=== PATIENT | female | born 1970 | race Caucasian/White ===

== ENCOUNTER 2023-01-11 09:38 | Outpatient (OUT) | payer OTHER, SELFPAY ==
--- NOTE | 2023-01-11 09:50 | US_ITS ---
[address] [address] Patient Name: KALYN RUTHERFORD MRN: [id number] date: 1970 Sex: F Assigned Patient Location: [place] Current Patient Location: [place] Accession/Order Number: [id number] Exam Date: 01/11/2023 10:00 Report Date: 01/11/2023 10:25 At the request of: GRISELDA SCOTT Procedure: US venous doppler LE RT EXAM: US venous doppler LE RT HISTORY: Right calf pain, Edema COMPARISON: None. TECHNIQUE: Grayscale, color and Doppler FINDINGS: Region: Right leg Thrombus: None Flow: Normal Augmentation: Normal Compressibility: Normal Other: Mild subcutaneous edema of the catheter IMPRESSION: No deep or superficial vein thrombus in the right leg Electronically authenticated by: TAMIKO NETTLES Date: 01/11/2023 10:25
== END 2023-01-11 09:39 ==
PROVIDERS: PCP Family Medicine; Visit Provider Family Medicine
DX: M79.661 Pain in right lower leg (principal); R60.9 Edema, unspecified
CPT/HCPCS: 93971

== ENCOUNTER 2023-02-08 16:00 | Outpatient (OUT) | payer OTHER, SELFPAY ==
[2023-02-08 16:21] LABS: Basophils Percent Auto 0.8 % (0.2-2.0); Eosinophils Absolute Auto 0.3 10^3/uL (0.0-0.7); Eosinophils Percent Auto 6.1 % (0.9-7.0); Immature Granulocytes Abs Auto 0.01 10^3/uL (0.00-0.03); Immature Granulocytes Pct Auto 0.2 % (0.0-0.5); Lymphocytes Absolute Auto 1.9 10^3/uL (1.2-3.8); Mean Corpuscular Hemoglobin 19.5 pg (26.7-34.0); Mean Corpuscular Volume 72.4 fL (81.0-99.0); Mean Platelet Volume 9.7 fL (9.5-13.5); Monocytes Absolute Auto 0.3 10^3/uL (0.3-0.8); Monocytes Percent Auto 5.4 % (1.7-12.0); Neutrophils Absolute Auto 2.6 10^3/uL (1.4-6.5); Neutrophils Percent Auto 50.5 % (43.0-75.0); Platelet Count 289 10^3/uL (150-450); Red Blood Count 2.61 10^6/uL (4.20-5.40); Red Cell Distribution Width 18.5 % (11.0-15.0); White Blood Count 5.2 10^3/uL (4.0-11.0)
[2023-02-08 16:26] LABS: Hematocrit 18.9 % (36.0-48.0); Hemoglobin 5.1 g/dL (12.0-16.0)
[2023-02-08 17:03] LABS: Alanine Aminotransferase 13 U/L (14-59); Albumin Globulin Ratio 0.9; Albumin Level 2.9 g/dL (3.4-5.0); Alkaline Phosphatase 123 U/L (46-116); Anion Gap 14.1; Aspartate Amino Transferase 13 U/L (15-37); BUN Creatinine Ratio 18.3; Bilirubin Total 0.2 mg/dL (0.2-1.0); Calcium 8.2 mg/dL (8.5-10.1); Carbon Dioxide 25.4 mmol/L (21.0-32.0); Chloride 108 mmol/L (98-107); Chol HDL Ratio 2.4; Cholesterol 88 mg/dL (<=200); Estimated GFR (African America >60 (>=60); Estimated GFR (Non-African Ame >60 (>=60); Globulin 3.3 g/dL; Glucose 86 mg/dL (74-106); HDL Cholesterol 37 mg/dL (40-60); Potassium 4.5 mmol/L (3.5-5.1); Sodium 143 mmol/L (136-145); Thyroid Stimulating Hormone 5.021 uIU/mL (0.358-3.740); Total Protein 6.2 g/dL (6.4-8.2); Triglycerides 68 mg/dL (<=150); VLDL CHOLESTEROL 13.6 mg/dL
[2023-02-08 17:43] LABS: Free T4 0.77 ng/dL (0.76-1.46)
== END 2023-02-08 16:01 | disposition home or self-care (01) ==
LOC: LAB 16:02
PROVIDERS: PCP Family Medicine
DX: R06.09 Other forms of dyspnea (principal); R00.2 Palpitations
CPT/HCPCS: 36415; 80053; 80061; 83735; 83880; 84439; 84443; 85025

== ENCOUNTER 2023-02-08 17:07 | Observation (INO) | payer OTHER, SELFPAY ==
[2023-02-08] VITALS (26 sets, daily range): BP systolic 97–130; BP diastolic 40–61; PULSE 58–105; RESP 15–26; TEMP 36.6–36.9; O2SAT 67–100; BMI 36.1; BMI 36.6
--- NOTE | 2023-02-08 17:45 | ECG_ITS ---
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
--- NOTE | 2023-02-08 17:50 | ED.GENADUL1 ---
HPI - General Adult General Chief complaint: Recheck/Abnormal Lab/Rx Stated complaint: ADNORMAL LABS Time Seen by Provider: 02/08/23 17:45 Source: patient Mode of arrival: walk-in Limitations: no limitations History of Present Illness HPI narrative: Patient is a 52-year-old female who is presenting to the Emergency Room with 2-4 weeks. Patient's PCP is Dr. ibarra. Patient saw the nurse practitioner in the cardiology office today and had outpatient lab work done that showed a hemoglobin of 5.1. Patient was sent to the Emergency Room for evaluation. Patient also has had 3-5 months of headaches that she's been taking Excedrin for. Patient takes Excedrin daily to help with her headaches, she will adamantly take Motrin. Patient also has a history of acid reflux that she takes medication for. Patient has no melena, known medication, no hemorrhoids that she is aware of. Patient has not had her menses for months. Patient has no history of anemia. No female history of anemia in the family. Patient takes medication for depression, otherwise no other prescribed medication. Patient states she has long history of headaches, she's never had any imaging done of her brain previously for headaches, At the headaches and the getting worse the last 3-5 months. and child at bedside. . All systems are negative except as noted/marked. All systems reviewed and otherwise negative. . Nurses note and vital signs reviewed and patient is not hypoxic. General: The patient appears well and in no apparent distress. Patient is resting comfortably on cart. Patient is not toxic, lethargic, or listless Skin: Warm, dry, + pallor noted. There is no rash noted. No petechiae, purpura. Head: Normocephalic, atraumatic Eye: Palel conjunctiva, no drainage, EOMI. PERRL Ears, Nose, Mouth, and Throat: oral mucosa is moist. Nares patent. Mouth without vesicles. Cardiovascular: Regular Rate and Rhythm, no murmur, gallop, rub Respiratory: Patient is in no distress, no accessory muscle use, lungs are clear to auscultation, no wheezing, rales or rhonchi Back: non-tender, no CVA tenderness bilaterally to percussion. No CT LS midline pain GI: soft, obese, no tenderness to palpation, no masses appreciated. No rebound, guarding, or rigidity noted. No flank pain bilateral, No distention Rectal exam: chaperoned by Rosana LIZARRAGA, no external or internal hemorrhoids, brown stool. Hemoccult pending. Musculoskeletal: Patient has full range of motion of all of the extremities, no motor, sensory, or focal neurological deficits Neurological: A&O x3, normal speech Psychiatric: Cooperative Related Data Home Medications Medication Instructions Recorded Confirmed aripiprazole 10 mg tablet 10 mg PO DAILY 02/08/23 02/08/23 cholecalciferol (vitamin D3) 25 1,000 unit PO DAILY 02/08/23 02/08/23 mcg (1,000 unit) tablet citalopram 40 mg tablet 40 mg PO DAILY 02/08/23 02/08/23 furosemide 20 mg tablet 20 mg PO DAILY 02/08/23 02/08/23 lansoprazole 30 mg capsule,delayed 30 mg PO DAILY 02/08/23 02/08/23 release lorazepam 0.5 mg tablet 0.5 mg PO Q12H PRN anxiety 02/08/23 02/08/23 tolterodine 4 mg capsule,extended 4 mg PO Q24H 02/08/23 02/08/23 release 24 hr trazodone 50 mg tablet 50 mg PO DAILY PRN insomnia 02/08/23 02/08/23 Allergies Allergy/AdvReac Type Severity Reaction Status Date / Time Penicillins Allergy Severe Hives Verified 02/08/23 17:14 PFSH PFSH Social History Smoking status: Current every day smoker Exam Constitutional Vital Signs, click to edit/add: Last Vital Signs Pulse 77 02/08/23 17:15 Resp 18 02/08/23 17:15 BP 125/54 H 02/08/23 17:15 Pulse Ox 99 02/08/23 17:15 O2 Del Method Room Air 02/08/23 17:15 Course Vital Signs Vital signs: Vital Signs Pulse Rate 77 02/08/23 17:15 Respiratory Rate 18 02/08/23 17:15 Blood Pressure 125/54 H 02/08/23 17:15 Pulse Oximetry 99 02/08/23 17:15 Oxygen Delivery Method Room Air 02/08/23 17:15 Pulse Rate 77 02/08/23 17:15 Respiratory Rate 18 02/08/23 17:15 Blood Pressure 125/54 H 02/08/23 17:15 Pulse Oximetry 99 02/08/23 17:15 Oxygen Delivery Method Room Air 02/08/23 17:15 Medical Decision Making MDM Narrative Medical decision making narrative: EKG interpretation. Normal sinus rhythm at 74 beats a minute. Normal axis deviation. No acute ST elevation, no acute ectopy. QTC of 403. Blood consent was signed, risk and benefits of transfusing blood was discussed at bedside. Patient has been hemodynamically stable. Patient will be admitted for observation for at least 2 units of blood transfusion. Patient has never had a EGD or colonoscopy. Patient has never had anemia previously. Patient only takes medication for depression. Patient will be admitted for further testing. Patient will also the CT of the brain to rule out any other acute patthology. Patient will have a CT of the brain as she is being transferred upstairs for inpatient observation stay, admitting hospitalist Dr. Yao will follow-up on any other additional lab work including iron studies are ordered and CT of the brain. Lab Data Lab results reviewed: Yes I reviewed the patient's lab results Labs: Lab Results 02/08/23 02/08/23 Range/Units 17:36 18:01 WBC 4.5 (4.0-11.0) 10^3/uL RBC 2.53 L (4.20-5.40) 10^6/uL Hgb 4.8 L* (12.0-16.0) g/dL Hct 18.2 L* (36.0-48.0) % MCV 71.9 L (81.0-99.0) fL MCH 19.0 L (26.7-34.0) pg MCHC 26.4 L (29.9-35.2) g/dL RDW 18.5 H (11.0-15.0) % Plt Count 288 (150-450) 10^3/uL MPV 10.4 (9.5-13.5) fL Neut % (Auto) 48.6 (43.0-75.0) % Lymph % (Auto) 39.1 (20.5-60.0) % [place] % (Auto) 5.4 (1.7-12.0) % Eos % (Auto) 5.8 (0.9-7.0) % Baso % (Auto) 0.9 (0.2-2.0) % Neut # (Auto) 2.2 (1.4-6.5) 10^3/uL Lymph # (Auto) 1.7 (1.2-3.8) 10^3/uL [place] # (Auto) 0.2 L (0.3-0.8) 10^3/uL Eos # (Auto) 0.3 (0.0-0.7) 10^3/uL Baso # (Auto) 0.0 (0.0-0.1) 10^3/uL Abs Immat Gran (auto) 0.01 (0.00-0.03) 10^3/uL Imm/Tot Granulo (auto) 0.2 (0.0-0.5) % Sodium 139 (136-145) mmol/L Potassium 4.2 (3.5-5.1) mmol/L Chloride 108 H (98-107) mmol/L Carbon Dioxide 24.2 (21.0-32.0) mmol/L Anion Gap 11.0 BUN 16.0 (7.0-18.0) mg/dL Creatinine 0.91 (0.55-1.02) mg/dL Est GFR ( Amer) >60 (>=60) Est GFR (Non-Af Amer) >60 (>=60) BUN/Creatinine Ratio 17.6 Glucose 92 (74-106) mg/dL Lactate 1.7 (0.4-2.0) mmol/L Calcium 8.2 L (8.5-10.1) mg/dL Iron 12.0 L (50.0-170.0) ug/dL TIBC 466.0 H (250.0-450.0) ug/dL % Saturation 2.6 % Ferritin 3.0 L (8.0-252.0) ng/mL Total Bilirubin 0.3 (0.2-1.0) mg/dL AST 15 (15-37) U/L ALT <6 L (14-59) U/L Alkaline Phosphatase 118 H (46-116) U/L Total Creatine Kinase 62 (26-192) U/L CK-MB (CK-2) <0.50 (<=3.60) ng/mL Myoglobin 30 (9-82) ng/mL Troponin I High Sens 6.7 (4.0-51.3) pg/mL NT-Pro-B Natriuret Pep 253.0 (<=900.0) pg/mL Total Protein 6.0 L (6.4-8.2) g/dL Albumin 3.0 L (3.4-5.0) g/dL Globulin 3.0 g/dL Albumin/Globulin Ratio 1.0 Blood Type AB Positive Antibody Screen Negative Crossmatch See Detail ECG Data Attestation: I personally reviewed and interpreted this ECG as follows: Discharge Plan Discharge Chief Complaint: Recheck/Abnormal Lab/Rx Clinical Impression: Anemia requiring transfusions, Fatigue, Chronic headache Patient Disposition: Admitted as Observation Condition: Fair
[2023-02-08 18:11] LABS: Basophils Percent Auto 0.9 % (0.2-2.0); Eosinophils Absolute Auto 0.3 10^3/uL (0.0-0.7); Eosinophils Percent Auto 5.8 % (0.9-7.0); Immature Granulocytes Abs Auto 0.01 10^3/uL (0.00-0.03); Immature Granulocytes Pct Auto 0.2 % (0.0-0.5); Lymphocytes Absolute Auto 1.7 10^3/uL (1.2-3.8); Lymphocytes Percent Auto 39.1 % (20.5-60.0); Mean Corpuscular HGB Conc 26.4 g/dL (29.9-35.2); Mean Corpuscular Volume 71.9 fL (81.0-99.0); Mean Platelet Volume 10.4 fL (9.5-13.5); Monocytes Absolute Auto 0.2 10^3/uL (0.3-0.8); Monocytes Percent Auto 5.4 % (1.7-12.0); Neutrophils Absolute Auto 2.2 10^3/uL (1.4-6.5); Neutrophils Percent Auto 48.6 % (43.0-75.0); Platelet Count 288 10^3/uL (150-450); Red Blood Count 2.53 10^6/uL (4.20-5.40); Red Cell Distribution Width 18.5 % (11.0-15.0); White Blood Count 4.5 10^3/uL (4.0-11.0)
[2023-02-08 18:18] LABS: Hematocrit 18.2 % (36.0-48.0); Hemoglobin 4.8 g/dL (12.0-16.0)
[2023-02-08 18:44] LABS: Lactate/Lactic Acid 1.7 mmol/L (0.4-2.0)
[2023-02-08 18:51] LABS: Alanine Aminotransferase <6 U/L (14-59); Alkaline Phosphatase 118 U/L (46-116); Aspartate Amino Transferase 15 U/L (15-37); BUN Creatinine Ratio 17.6; Bilirubin Total 0.3 mg/dL (0.2-1.0); Calcium 8.2 mg/dL (8.5-10.1); Carbon Dioxide 24.2 mmol/L (21.0-32.0); Chloride 108 mmol/L (98-107); Creatine Kinase 62 U/L (26-192); Creatine Kinase MB <0.50 ng/mL (<=3.60); Estimated GFR (African America >60 (>=60); Estimated GFR (Non-African Ame >60 (>=60); Glucose 92 mg/dL (74-106); Myoglobin 30 ng/mL (9-82); Potassium 4.2 mmol/L (3.5-5.1); Sodium 139 mmol/L (136-145); Troponin I High Sensitivity 6.7 pg/mL (4.0-51.3)
--- NOTE | 2023-02-08 18:57 | CT_ITS ---
The [address] [address] Patient Name: KALYN RUTHERFORD MRN: [id number] date: 1970 Sex: F Assigned Patient Location: ICU Current Patient Location: ICU Accession/Order Number: [id number] Exam Date: 02/08/2023 19:08 Report Date: 02/08/2023 19:45 At the request of: MICHELA QUINTANA Procedure: CT head/brain wo con EXAMINATION: CT head/brain wo con, 02/08/2023 7:08 PM EDT HISTORY: Chronic headache COMPARISON: None. TECHNIQUE: CT scan of the head was performed without IV contrast. CT dose reduction technique was used, including Automated Exposure Control. FINDINGS: BRAIN PARENCHYMA/CSF SPACES: Ventricles are normal in size for age. There is no hemorrhage, mass effect or midline shift. There are no other significant findings. PARANASAL SINUSES: Clear. SKULL BASE AND CALVARIUM: Normal. EXTRACRANIAL SOFT TISSUES: Normal. CT/CT head/brain wo con IMPRESSION: No acute intracranial findings. Electronically authenticated by: JENNIFER MARIE Date: 02/08/2023 19:45
[2023-02-08 19:13] LABS: Percent Iron Saturation 2.6 %
[2023-02-08] MEDS: 0.9 % SODIUM CHLORIDE 500 ML 100 ML IV (19:57)
--- NOTE | 2023-02-08 23:15 | P.PN_ITS ---
Progress Note: Subjective Subjective Interval history: The patient is a 52-year-old female who has not been feeling well over the past several weeks. She has been having intermittent episodes of chest pain, fatigue and shortness of breath. She is also been complaining of lightheadedness and dizziness. She saw cardiology today and underwent outpatient labs. She was noted to have a hemoglobin of 5.1. The patient has reached menopause and her last menstrual period was 2 years ago. She presented to the ED and repeat hemoglobin was 4.8. She is being transfused 2 units of packed red blood cells. The patient denies any hematochezia, hematuria or any other vaginal bleeding. She is being admitted for acute anemia. Exam Narrative Exam Narrative: General : Alert and oriented x3, pale HEENT : Extraocular movements intact, pupils equal round and reactive to light and accommodation Neck: Supple, no JVD Chest: Wheezing on left side Heart: Regular rate and rhythm, S1 and S2 heard Abdomen: Soft nontender nondistended. Extremities: No clubbing cyanosis or edema Neurologically: Moving all 4 extremities Skin: No rashes Constitutional Vital Signs, click to edit/add: Last Vital Signs Temp 98.1 F 02/08/23 22:49 Pulse 67 02/08/23 22:49 Resp 19 02/08/23 22:49 BP 130/61 H 02/08/23 22:49 Pulse Ox 94 L 02/08/23 22:49 O2 Del Method Room Air 02/08/23 22:49 Progress Note: Objective Labs Labs: Short CBC 02/08/23 Range/Units 17:36 WBC 4.5 (4.0-11.0) 10^3/uL Hgb 4.8 L* (12.0-16.0) g/dL Hct 18.2 L* (36.0-48.0) % Plt Count 288 (150-450) 10^3/uL BMP 02/08/23 17:36 Sodium 139 Potassium 4.2 Chloride 108 H Carbon Dioxide 24.2 BUN 16.0 Creatinine 0.91 Glucose 92 Calcium 8.2 L Cardiac Enzymes 02/08/23 Range/Units 17:36 Total Creatine Kinase 62 (26-192) U/L CK-MB (CK-2) <0.50 (<=3.60) ng/mL Liver Function 02/08/23 Range/Units 17:36 Total Bilirubin 0.3 (0.2-1.0) mg/dL AST 15 (15-37) U/L ALT <6 L (14-59) U/L Alkaline Phosphatase 118 H (46-116) U/L Albumin 3.0 L (3.4-5.0) g/dL Progress Note: A&P Assessment and Plan (1) Anemia requiring transfusions: (2) Fatigue: Plan The patient is a 52-year-old female with above medical problems, presenting with acute on chronic anemia. Acute on chronic anemia -Provide supportive care -Rule out GI blood loss, guaiac stools -Transfused 2 units of blood -Monitor blood counts Nicotine dependence -Provide nicotine patch DVT Prophylaxis -SCDs Medication review -Medication reconciliation form completed Goals of care -Full code Communications -Discussed with the emergency room physician -Discussed with the bedside nurse -Patient updated of plan of care, all questions answered to their satisfaction Disposition -Home when medically stable Telemedicine clause -As the provider of this telehealth evaluation, requested by the patient's evaluating physician, I attest that I introduced myself to the patient, provided my credentials and determined that telemedicine via a real-time, two-way interactive audio and video platform is an appropriate and effective means of providing this service. -I reviewed the patient's chart and had a discussion with the member of the patient's treatment team. -The patient and I mutually agreed with continuation of this evaluation via telemedicine. The patient consented for the telemedicine evaluation. -This virtual encounter was taken place from [place], [place]. The encounter was approximately 35 minutes. The nurse was present during the entire time of the encounter and was able to remove the stethoscope and appropriate directions. The patient was evaluated at [facility] Telemedicine Attestation Telemedicine Attestation I conducted this encounter from [facility] via secure live, [id number] video conference with the patient, located at [facility] with nurse. Prior to the interview, the risks and benefits of telemedicine were discussed with the patient and verbal consent was obtained.
[2023-02-08] MEDS: ACETAMINOPHEN 325 MG TABLET 650 MG PO (23:43)
[2023-02-09] VITALS (22 sets, daily range): BP systolic 98–127; BP diastolic 48–68; PULSE 55–71; RESP 16–18; TEMP 36.4–36.7; O2SAT 95–100
--- NOTE | 2023-02-09 03:26 | PC.NURSE ---
02/08/2023 2217: 1st unit of blood completed and 2nd unit started. Attempted to scan but unable. Blood verification done between Elizabeth LIZARRAGA and marine underwriter. Blood started, VS documented. 02/09/2023 0000: 2nd unit of blood completed. No reaction noted. Again unable to document blood has ended. VS documented during transfusion per protocol.
[2023-02-09] MEDS: ACETAMINOPHEN 325 MG TABLET 650 MG PO ×3 (04:14→13:11)
[2023-02-09 04:50] LABS: Eosinophils Absolute Auto 0.3 10^3/uL (0.0-0.7); Eosinophils Percent Auto 7.2 % (0.9-7.0); Immature Granulocytes Abs Auto 0.01 10^3/uL (0.00-0.03); Immature Granulocytes Pct Auto 0.3 % (0.0-0.5); Lymphocytes Absolute Auto 1.9 10^3/uL (1.2-3.8); Lymphocytes Percent Auto 48.7 % (20.5-60.0); Mean Corpuscular HGB Conc 27.8 g/dL (29.9-35.2); Mean Corpuscular Hemoglobin 21.4 pg (26.7-34.0); Mean Corpuscular Volume 76.9 fL (81.0-99.0); Mean Platelet Volume 10.3 fL (9.5-13.5); Monocytes Absolute Auto 0.3 10^3/uL (0.3-0.8); Monocytes Percent Auto 7.4 % (1.7-12.0); Neutrophils Absolute Auto 1.4 10^3/uL (1.4-6.5); Neutrophils Percent Auto 35.4 % (43.0-75.0); Platelet Count 233 10^3/uL (150-450); Red Blood Count 2.95 10^6/uL (4.20-5.40); Red Cell Distribution Width 18.1 % (11.0-15.0); White Blood Count 3.9 10^3/uL (4.0-11.0)
[2023-02-09 04:55] LABS: Hemoglobin 6.3 g/dL (12.0-16.0)
[2023-02-09 04:56] LABS: Hematocrit 22.7 % (36.0-48.0)
[2023-02-09 05:07] LABS: BUN Creatinine Ratio 15.2; Calcium 8.2 mg/dL (8.5-10.1); Carbon Dioxide 24.4 mmol/L (21.0-32.0); Chloride 111 mmol/L (98-107); Estimated GFR (African America >60 (>=60); Estimated GFR (Non-African Ame >60 (>=60); Glucose 84 mg/dL (74-106); Potassium 4.4 mmol/L (3.5-5.1); Sodium 142 mmol/L (136-145)
[2023-02-09] MEDS: FUROSEMIDE 20 MG/2 ML VIAL IV (06:26)
[2023-02-09] MEDS: PANTOPRAZOLE SODIUM 40 MG VIAL IV (07:44)
--- NOTE | 2023-02-09 08:44 | PM.HP ---
H&P: HPI History of Present Illness Chief complaint: ADNORMAL LABS ANEMIA REQUIRES TRANSFUSION Narrative: patient is a 52-year-old female with past medical history of anxiety depression, GERD who presented to the emergency department yesterday with a several week history of chest pain shortness of breath and weakness. In the Emergency Room she was found to have a symptomatic anemia with a hemoglobin of 4.8. She denies ever having any anemia issues in the past. She has never had a screening colonoscopy. She is a daily smoker smokes about one pack per day. She denies any nausea vomiting diarrhea or abdominal pain. She has been having headaches and has been taking a lot of Excedrin migraine and she also reports two daily NSAIDs or this headache. She takes an occasional Lasix for lower extremity swelling and has noticed some right lower extremity swelling more than usual so a ultrasound of the right lower extremity was obtained in the Emergency Room which was negative for deep vein thromboses. Patient is not taking any blood thinners although we discussed the Excedrin has aspirin. She denies any prior heart history her only surgical history was a rectocele repair. Patient is postmenopausal and has not had a menstruation for greater than two years. She denies any other form of bleeding. Patient has received two units of PRBCs so far. Also personal history of GERD, never had EGD, takes pepcid OTC. Review of Systems ROS Narrative ROS: a complete review of systems were reviewed with patient and are positive as below or listed in History of Chief Complaint. General: no fever, chills, night sweats Head: no headache, trauma, visual changes, nausea or vomiting Skin: no reported rashes, itching or sores Eyes: no blurriness of vision Ears: no reported hearing loss, vertigo, earache, or tinnitus Throat: no sore throat, hoarseness, swelling of neck, or tongue pain Heart: chest pain Lungs: shortness of breath, no cough GI: no diarrhea or vomiting/nausea Urinary: no urinary urgency, frequency or pain Neuro: no numbness or tingling HEM: no bleeding issues or bruising ENDO: no thyroid problems Psych: anxiety and depression [facility] Medical History (Updated 02/09/23 @ 11:28 by Anh Ugalde DO) Surgical History Social History Smoking status: Current every day smoker Meds Home Medications and Allergies Home Medications Medication Instructions Recorded Confirmed Type aripiprazole 10 mg tablet 10 mg PO DAILY 02/08/23 02/08/23 History cholecalciferol (vitamin D3) 25 1,000 unit PO DAILY 02/08/23 02/08/23 History mcg (1,000 unit) tablet citalopram 40 mg tablet 40 mg PO DAILY 02/08/23 02/08/23 History furosemide 20 mg tablet 20 mg PO DAILY 02/08/23 02/08/23 History lansoprazole 30 mg capsule,delayed 30 mg PO DAILY 02/08/23 02/08/23 History release lorazepam 0.5 mg tablet 0.5 mg PO Q12H PRN anxiety 02/08/23 02/08/23 History tolterodine 4 mg capsule,extended 4 mg PO Q24H 02/08/23 02/08/23 History release 24 hr trazodone 50 mg tablet 50 mg PO DAILY PRN insomnia 02/08/23 02/08/23 History Allergies Allergy/AdvReac Type Severity Reaction Status Date / Time Penicillins Allergy Severe Hives Verified 02/08/23 17:14 Exam Narrative Exam Narrative: General: Patient is alert, and oriented to person, place and time with normal affect, proper hygiene Skin: no visible rashes, or ulcers Head: atraumatic, acephalic Eyes: PERRLA, no nystagmus present, conjunctiva clear, no scleral icterus Ears: normal Tympanic Membrane, normal gross auditory acuity Nose: symmetric, no discharge, no maxillary or frontal sinus tenderness Mouth/Throat: no erythema, exudate, or tonsillar enlargement, normal dentition Neck: no masses palpated, normal thyroid, no JVD or audible carotid bruits Heart: Normal rate and rhythm, no murmurs/rubs/gallops Lungs: no audible wheezes, crackles and normal breath sounds all lung warner Abdomen: Normal audible bowel sounds, no distension, No palpable masses, no organomegaly, no rebound/guarding/ or rigidity Musculoskeletal: muscle atrophy noted, ROM is limited due to being in hospital bed, no swelling bilateral lower extremities Vascular: Normal carotid, radial, femoral, posterior tibial, and dorsalis pedis pulses Lymph: no supraclavicular, axillary, or anterior/posterior cervical adenopathy Neuro: CN II-X grossly intact, normal sensation upper and lower extremities Constitutional Vital Signs, click to edit/add: Last Vital Signs Temp 97.9 F 02/09/23 04:00 Pulse 69 02/09/23 05:56 Resp 18 02/09/23 04:00 BP 118/60 02/09/23 06:26 Pulse Ox 95 02/09/23 05:11 O2 Del Method Room Air 02/09/23 05:11 Results Labs Labs: Short CBC 02/08/23 02/08/23 Range/Units 03:50 17:36 WBC 3.9 L 4.5 (4.0-11.0) 10^3/uL Hgb 6.3 L* 4.8 L* (12.0-16.0) g/dL Hct 22.7 L* 18.2 L* (36.0-48.0) % Plt Count 233 288 (150-450) 10^3/uL BMP 02/08/23 02/08/23 03:50 17:36 Sodium 142 139 Potassium 4.4 4.2 Chloride 111 H 108 H Carbon Dioxide 24.4 24.2 BUN 12.0 16.0 Creatinine 0.79 0.91 Glucose 84 92 Calcium 8.2 L 8.2 L Cardiac Enzymes 02/08/23 Range/Units 17:36 Total Creatine Kinase 62 (26-192) U/L CK-MB (CK-2) <0.50 (<=3.60) ng/mL Liver Function 02/08/23 Range/Units 17:36 Total Bilirubin 0.3 (0.2-1.0) mg/dL AST 15 (15-37) U/L ALT <6 L (14-59) U/L Alkaline Phosphatase 118 H (46-116) U/L Albumin 3.0 L (3.4-5.0) g/dL Assessment and Plan Assessment and Plan (1) UGIB (upper gastrointestinal bleed): Assessment and Plan: patient should receive approximately four units of PRBCs, only increased from 4-6 for hemoglobin. Supposed to receive the other two units this morning. Patient is nothing by mouth for surgical consultation and probable EGD. Patient has a history of GERD and gastric bypass surgery and given she has been taking aspirin and NSAIDs for headache most likely culprit is ulcer. IV Protonix 40 mg twice a day and will add Carafate after EGD. (2) Symptomatic anemia: Assessment and Plan: iron is low but most likely due to blood loss, possible bleeding ulcer versus gastritis patient denies any other forms of bleeding. (3) Gastro-esophageal reflux: Assessment and Plan: continue Protonix (4) Fatigue: Assessment and Plan: secondary to iron deficiency/blood loss anemia (5) Chronic headache: Assessment and Plan: Tylenol as needed and avoid NSAIDs and aspirin (6) Anxiety with depression: Assessment and Plan: continue Celexa and Abilify and trazodone at night (7) Hx of gastric bypass: Plan patient is a full code Due to active bleeding, and significant anemia SCDs only for deep vein thrombosis prophylaxis Patient is in observation status and is not expected to stay more than two midnights
[2023-02-09] MEDS: CITALOPRAM HYDROBROMIDE 20 MG TABLET 40 MG PO (09:08)
[2023-02-09] MEDS: ARIPIPRAZOLE 5 MG TABLET 10 MG PO (09:08)
[2023-02-09] MEDS: SOLIFENACIN SUCCINATE 10 MG TABLET PO (09:08)
[2023-02-09] MEDS: NICOTINE 14 MG PATCH.TD24 TD (09:09)
[2023-02-09] MEDS: CHOLECALCIFEROL (VITAMIN D3) 25 MCG/1,000 UNITS TABLET 75 MCG PO (09:40)
[2023-02-09] MEDS: 0.9 % SODIUM CHLORIDE 250 ML 40 ML IV (10:14)
--- NOTE | 2023-02-09 11:37 | CM.NOTE ---
Rounds made with Dr. Ugalde. Awaiting General Surgery plan.
[2023-02-09] MEDS: 0.9 % SODIUM CHLORIDE 1,000 ML 999 ML (14:12)
[2023-02-09] MEDS: 0.9 % SODIUM CHLORIDE 1,000 ML 1000 ML IV (14:15)
--- NOTE | 2023-02-09 14:16 | PM.GSCN ---
History of Present Illness Consult details Consult date: 02/09/23 Reason for consult: other (anemia) Requesting physician: Anh Ugalde Narrative: Talia Mercado is a 51-year-old female who presented to the Emergency Department after being referred by her director marketing communications from [facility] at [facility] due to fatigue shortness of breath difficulty ambulating because of the above. He wanted blood work performed and she was found have a hemoglobin around 4 g. She denies any melena hematochezia abdominal pain nausea vomiting hematemesis or weight loss or any family history of colon cancer. She has never had a colonoscopy. She does admit to reflux disease for which she takes Prevacid daily. She also admits to taking eight extra strength Excedrin daily plus Tylenol plus ibuprofen when necessary for headaches. She consumes 5 cups of caffeine daily. She smokes tobacco daily. She denies any alcohol use. She takes Pepto-Bismol occasionally. She works in [employer] at [employer] from [employer] in [place]. She is . She is now receiving her 4th unit of packed red blood cells. Review of Systems ROS Status of ROS 10 or more systems reviewed and unremarkable except as noted in history and below [facility] Medical History Surgical History Social History Smoking status: Current every day smoker Meds Home Medications and Allergies Home Medications Medication Instructions Recorded Confirmed Type aripiprazole 10 mg tablet 10 mg PO DAILY 02/08/23 02/08/23 History cholecalciferol (vitamin D3) 25 1,000 unit PO DAILY 02/08/23 02/08/23 History mcg (1,000 unit) tablet citalopram 40 mg tablet 40 mg PO DAILY 02/08/23 02/08/23 History furosemide 20 mg tablet 20 mg PO DAILY 02/08/23 02/08/23 History lansoprazole 30 mg capsule,delayed 30 mg PO DAILY 02/08/23 02/08/23 History release lorazepam 0.5 mg tablet 0.5 mg PO Q12H PRN anxiety 02/08/23 02/08/23 History tolterodine 4 mg capsule,extended 4 mg PO Q24H 02/08/23 02/08/23 History release 24 hr trazodone 50 mg tablet 50 mg PO DAILY PRN insomnia 02/08/23 02/08/23 History Allergies Allergy/AdvReac Type Severity Reaction Status Date / Time Penicillins Allergy Severe Hives Verified 02/08/23 17:14 Exam Constitutional Vital Signs, click to edit/add: Last Vital Signs Temp 97.8 F 02/09/23 13:32 Pulse 63 02/09/23 14:09 Resp 16 02/09/23 13:32 BP 120/60 H 02/09/23 13:41 Pulse Ox 96 02/09/23 13:32 O2 Del Method Room Air 02/09/23 13:32 Documenting provider has reviewed patient's vital signs: yes Common normals: no apparent distress, oriented x3 and healthy appearing General appearance: cooperative, comfortable and well developed Nutritional appearance: obese Orientation/consciousness: Yes awake, Yes oriented to person, Yes oriented to place and Yes oriented to time Respiratory Common normals: normal respiratory effort Auscultation: clear to auscultation bilaterally Cardio Common normals: regular rate GI Common normals: Normal to inspection, nondistended, normoactive bowel sounds present, soft to palpation, non-tender and no masses Inspection: central obesity Neuro Common normals: oriented x3, CN's II-XII intact bilaterally and moves all extremities Results Labs Labs: Abnormal lab results 02/08/23 02/08/23 02/08/23 Range/Units 03:50 17:36 18:01 WBC 3.9 L (4.0-11.0) 10^3/uL RBC 2.95 L 2.53 L (4.20-5.40) 10^6/uL Hgb 6.3 L* 4.8 L* (12.0-16.0) g/dL Hct 22.7 L* 18.2 L* (36.0-48.0) % MCV 76.9 L 71.9 L (81.0-99.0) fL MCH 21.4 L 19.0 L (26.7-34.0) pg MCHC 27.8 L 26.4 L (29.9-35.2) g/dL RDW 18.1 H 18.5 H (11.0-15.0) % Neut % (Auto) 35.4 L (43.0-75.0) % Eos % (Auto) 7.2 H (0.9-7.0) % [place] # (Auto) 0.2 L (0.3-0.8) 10^3/uL Chloride 111 H 108 H (98-107) mmol/L Calcium 8.2 L 8.2 L (8.5-10.1) mg/dL Iron 12.0 L (50.0-170.0) ug/dL TIBC 466.0 H (250.0-450.0) ug/dL Ferritin 3.0 L (8.0-252.0) ng/mL ALT <6 L (14-59) U/L Alkaline Phosphatase 118 H (46-116) U/L Total Protein 6.0 L (6.4-8.2) g/dL Albumin 3.0 L (3.4-5.0) g/dL Crossmatch See Detail Diabetes panel 02/08/23 02/08/23 Range/Units 03:50 17:36 Sodium 142 139 (136-145) mmol/L Potassium 4.4 4.2 (3.5-5.1) mmol/L Chloride 111 H 108 H (98-107) mmol/L Carbon Dioxide 24.4 24.2 (21.0-32.0) mmol/L BUN 12.0 16.0 (7.0-18.0) mg/dL Creatinine 0.79 0.91 (0.55-1.02) mg/dL Glucose 84 92 (74-106) mg/dL Calcium 8.2 L 8.2 L (8.5-10.1) mg/dL AST 15 (15-37) U/L ALT <6 L (14-59) U/L Alkaline Phosphatase 118 H (46-116) U/L Total Protein 6.0 L (6.4-8.2) g/dL Albumin 3.0 L (3.4-5.0) g/dL Calcium panel 02/08/23 02/08/23 Range/Units 03:50 17:36 Calcium 8.2 L 8.2 L (8.5-10.1) mg/dL Albumin 3.0 L (3.4-5.0) g/dL Pituitary panel 02/08/23 02/08/23 Range/Units 03:50 17:36 Sodium 142 139 (136-145) mmol/L Potassium 4.4 4.2 (3.5-5.1) mmol/L Chloride 111 H 108 H (98-107) mmol/L Carbon Dioxide 24.4 24.2 (21.0-32.0) mmol/L BUN 12.0 16.0 (7.0-18.0) mg/dL Creatinine 0.79 0.91 (0.55-1.02) mg/dL Glucose 84 92 (74-106) mg/dL Calcium 8.2 L 8.2 L (8.5-10.1) mg/dL Adrenal panel 02/08/23 02/08/23 Range/Units 03:50 17:36 Sodium 142 139 (136-145) mmol/L Potassium 4.4 4.2 (3.5-5.1) mmol/L Chloride 111 H 108 H (98-107) mmol/L Carbon Dioxide 24.4 24.2 (21.0-32.0) mmol/L BUN 12.0 16.0 (7.0-18.0) mg/dL Creatinine 0.79 0.91 (0.55-1.02) mg/dL Glucose 84 92 (74-106) mg/dL Calcium 8.2 L 8.2 L (8.5-10.1) mg/dL Total Bilirubin 0.3 (0.2-1.0) mg/dL AST 15 (15-37) U/L ALT <6 L (14-59) U/L Alkaline Phosphatase 118 H (46-116) U/L Total Protein 6.0 L (6.4-8.2) g/dL Albumin 3.0 L (3.4-5.0) g/dL All other labs normal. Assessment and Plan Assessment and Plan (1) UGIB (upper gastrointestinal bleed): Assessment and Plan: patient should receive approximately four units of PRBCs, only increased from 4-6 for hemoglobin. Supposed to receive the other two units this morning. Patient is nothing by mouth for surgical consultation and probable EGD. Patient has a history of GERD and gastric bypass surgery and given she has been taking aspirin and NSAIDs for headache most likely culprit is ulcer. IV Protonix 40 mg twice a day and will add Carafate after EGD. (2) Symptomatic anemia: Assessment and Plan: iron is low but most likely due to blood loss, possible bleeding ulcer versus gastritis patient denies any other forms of bleeding. (3) Gastro-esophageal reflux: Assessment and Plan: continue Protonix (4) Fatigue: Assessment and Plan: secondary to iron deficiency/blood loss anemia (5) Chronic headache: Assessment and Plan: Tylenol as needed and avoid NSAIDs and aspirin (6) Anxiety with depression: Assessment and Plan: continue Celexa and Abilify and trazodone at night (7) Hx of gastric bypass: Assessment and Plan: Gastric bypass was done by Dr. Chang in [place], [place], in two thousand twenty with a Juanito-en-Y bypass.patient claims she was never told to avoid nonsteroidal anti-inflammatory drugs and is at high risk for marginal ulceration. She was today warned by me to avoid nonsteroidal anti-inflammatory drugs and take Tylenol only for migraines the migraines are not better with Tylenol only she should probably see a neurologist asked her PCP for other medications to treat migraines other than nonsteroidal anti-inflammatory drugs. She is also highly encouraged to quit smoking tobacco. Nicotine is a stimulant because increased acid production and she is also asked to cut down her caffeine use to one to 2 cups a day instead of 5 cups. She voiced understanding of the above. (8) Tobacco abuse: Plan patient is a full code Due to active bleeding, and significant anemia SCDs only for deep vein thrombosis prophylaxis Patient is in observation status and is not expected to stay more than two midnights EGD with possible biopsy. Risks benefits and alternatives to procedure may include bleeding or perforation. She's had gastric bypass so she is increased risk of marginal ulceration.
--- NOTE | 2023-02-09 14:26 | PC.NURSE ---
Departed to OR with blood transfusing, 200ml/HR. Nurse Pat is aware of infusion. NS started by gravity tubing to new IV site to left wrist.
--- NOTE | 2023-02-09 14:44 | P.GSPRC_ITS ---
Date of procedure: 02/09/23 Indications for Procedure: anemia Pre-op diagnosis: anemia Post-op diagnosis: same (normal stomach esophagus and efferent and afferent limbs of gastric bypass) Procedure: esophagogastroduodenoscopy Findings: normal; no bleeding seen no ulcers polyps or tumors seen Anesthesia: MAC Surgeon: Segun Keene Procedure Summary: 52-year-old female was taken to the endoscopy suite placed in left lateral, position given IV sedation and monitored anesthesia care by the [facility] sthesiologist. Timeout was taken. The Olympus EGD scope was advanced under direct visualization to the posterior pharynx esophagus stomach which was small from the gastric bypass into the efferent and afferent limbs of the bypass with no blood or stigmata of bleeding noted. No ulcers polyps or tumors were seen. Mucosa appeared grossly normal. The scope was returned to the esophagus which was completely normal as well. The scope was withdrawn from the mouth.she went to PACU in stable condition. I would recommend colonoscopy tomorrow after giving her prep today. Rectal digital exam was performed and sphincter tone was normal. There was no blood on examining gloved finger and there was no stool present. Estimated blood loss (mL): 0 Complications: No Pathology: none sent Condition: stable Disposition: PACU
[2023-02-09 17:03] LABS: Hematocrit 29.7 % (36.0-48.0)
--- NOTE | 2023-02-09 18:14 | PC.NURSE ---
pt chose to ricarda out AMA after follow up HGB was 9.0. Dr. Ugalde was aware and advised follow up with office. is at bedside and aware of plan. IV removed.
--- NOTE | 2023-02-10 15:29 | PM.DS1 ---
DS: Providers Provider Date of admission: 02/08/23 18:40 Primary care physician: GRISELDA SCOTT Admitting clinician: Yahaira Rosas Consults: 02/09/23 06:38 Consult to General Surgeon Routine Consulting Provider: Segun Keene Attending physician on discharge: Ahn Ugalde DS: Diagnosis Discharge Diagnosis (1) UGIB (upper gastrointestinal bleed): (2) Symptomatic anemia: (3) Gastro-esophageal reflux: (4) Fatigue: (5) Chronic headache: (6) Anxiety with depression: (7) Hx of gastric bypass: (8) Tobacco abuse: DS: Summary Hospital Course Hospital Course: EGD showed no acute pathology. patient received 4 units PRBCs, Hb came up to 9.0. She had an important court date to attending. Dr. Keene and myself thought the need for further inpatient work up and colonoscopy possible CT abdomen/pelvis to figure out etiology of the bleeding. I offered to give note/excuse for court. Patient said she absolutely had to attend. I discussed that it was medical opinion that she stay, so she ended up leaving yesterday evening AMA (against medical advice) signed paper on the chart. Time Spent with Patient Time attestation: Total time spent providing and/or coordinating discharge services: Exam Narrative Exam Narrative: not performed as patient signed out AMA Constitutional Vital Signs, click to edit/add: Last Vital Signs Temp 98.1 F 02/09/23 17:04 Pulse 68 02/09/23 17:04 Resp 18 02/09/23 17:04 BP 119/59 L 02/09/23 17:04 Pulse Ox 98 02/09/23 17:04 O2 Del Method Room Air 02/09/23 17:04 DS: Data Data Completed and Pending Labs on day of discharge: Labs from last 24 hours 02/09/23 02/08/23 16:55 18:01 Hgb 9.0 L Hct 29.7 L Crossmatch See Detail Discharge Plan Discharge Disposition: Left Against Medical Advice Condition: Fair Discharge Date/Time: 02/09/23 18:00
--- NOTE | 2023-02-13 15:16 | CM.DCFOLLOWU ---
Person spoke with:patient How are you feeling? well, just tired How is your pain? no pain Did you understand your discharge instructions? patient left AMA due to a court date Do you have any questions about your discharge instructions? N/A Were you given any prescriptions at discharge? N/A Were you able to get your prescriptions filled? N/A Do you understand how to take your medications as ordered? N/A Do you have any questions about your follow up appointment and do you plan to keep your follow up appointment? patient has a colonoscopy scheduled March 08 Is there anything else that you would like to discuss? no Questions/Comments/Concerns/Other:
== END 2023-02-09 18:00 | disposition left against medical advice (07) ==
LOC: ER 18:18 → ICU 18:43
PROVIDERS: Internal Medicine; Surgery; Admitting Provider Family Medicine; Emergency Provider Emergency Medicine; PCP Family Medicine; Visit Provider Anesthesiology
PROC: (CPT 43235; principal; 2023-02-09 15:00)
DX: K92.2 Gastrointestinal hemorrhage, unspecified (principal); D64.9 Anemia, unspecified; F41.9 Anxiety disorder, unspecified; F32.A Depression, unspecified; K21.9 Gastro-esophageal reflux disease without esophagitis; F17.210 Nicotine dependence, cigarettes, uncomplicated; Z79.899 Other long term (current) drug therapy; Z98.84 Bariatric surgery status; R51.9 Headache, unspecified; G89.29 Other chronic pain; Z53.29 Procedure and treatment not carried out because of patient's decision for other reasons; R06.09 Other forms of dyspnea; R00.2 Palpitations; R53.81 Other malaise
CPT/HCPCS: 43235; 36415; 36430; 70450; 80048; 80053; 80061; 82550; 82553; 82728; 83540; 83550; 83605; 83735; 83874; 83880; 84439; 84443; 84484; 85014; 85018; 85025; 86850; 86900; 86901; 86920; 93005; 96374; 96375; 99285; G0378; J2704; P9016; Q3014

== ENCOUNTER 2023-02-22 14:49 | Outpatient (OUT) | payer OTHER, SELFPAY ==
--- NOTE | 2023-02-22 15:30 | CA_ITS ---
Patient: KALYN RUTHERFORD Exam Date: 02/22/2023 : 1970 Gender:F Ordering : MRS. CAROL WEBB NP Admission #: [id number] Family : Order #: [id number] CLICK HERE TO VIEW EXAM ECHOCARDIOGRAM REPORT PROCEDURE: CA ECHO DOPPLER COMPLETE INDICATIONS: VERAS COMPARISON: None. DESCRIPTION: COMPLETE ECHOCARDIOGRAM Real-time transthoracic echocardiography with 2D, M-mode, spectral and color flow Doppler performed. QUALITY: Technical quality was good. LEFT VENTRICLE: Normal chamber size. Mild concentric left ventricular hypertrophy. Global left ventricular systolic function is normal. LV EF: Estimated left ventricular ejection fraction is 55% DIASTOLIC: Normal diastolic function. ATRIAL SEPTUM: LEFT ATRIUM: Normal chamber size. RIGHT ATRIUM: Mild dilatation. RIGHT VENTRICLE: Normal chamber size. Normal right ventricular systolic function. TRICUSPID VALVE: Normal mobility and thickness. No stenosis with trivial regurgitation. No evidence of pulmonary hypertension. RVSP 31 mmHg MITRAL VALVE: Normal mobility and thickness. No evidence of mitral valve stenosis. There is no mitral annular calcification. Trivial mitral regurgitation. AORTIC VALVE: Normal trileaflet appearance. No visible sclerosis. Normal leaflet mobility. No evidence of aortic valve stenosis. No aortic regurgitation. AORTIC ROOT: Normal diameter and appearance. PULMONIC VALVE: Normal thickness and mobility. No stenosis. No regurgitation. PERICARDIUM: No evidence of pericardial effusion. IVC: Collapses with inspirations. Normal size. PLEURA: CONCLUSION: 1. Mild concentric left ventricular hypertrophy with normal systolic function. LVEF is 55%. 2. Normal right ventricular size and systolic function. 3. Normal diastolic function. 4. No significant valvular dysfunction. 5. Normal right-sided pressures. Adult Echocardiography Procedure Report Left Ventricle LVEDD (3.7 - 5.6 cm): 5.13 cm LVESD (2.2 - 4.0 cm): 3.25 cm LVIVS thickness (0.6 - 1.2 cm): 1.11 cm LVPW thickness (0.5 - 1.0 cm): 1.19 cm e': 0.12 m/s E - e': 6.35 LVOT Max Gradient: 5.98 mm[Hg] LVOT Area (cm2): 1.22 m/s Peak Velocity (LVOT): 1.22 m/s Mean Velocity (LVOT): 0.82 m/s LVOT Diameter 2.03 cm Left Ventricular Ejection Fraction: 55 % Left Atrium LA Volume Index (2D A2C): 36.65 ml/m2 Left Atrium Systolic Dimension: 4.07 cm Mitral Valve MV E to A Ratio: 0.91 Mitral Valve A-Wave Peak Velocity: 0.85 m/s Mitral Valve E-Wave Peak Velocity: 0.77 m/s Right Ventricle RV Internal Diastolic Dimension: 3.54 cm Aorta AO Root Diam: 2.63 cm Ascending Ao Diam: 2.61 cm Aortic Valve AoV Area (Peak Archie): 2.49 cm2, 2.49 cm2 AoV Area (VTI): 2.22 cm2, 2.22 cm2 Peak Velocity(Antegrade Flow): 1.59 m/s Peak Gradient(Antegrade Flow): 10.12 mm[Hg] Mean Velocity(Antegrade Flow): 1.09 m/s Mean Gradient(Antegrade Flow): 5.45 mm[Hg] Velocity Time Integral: 38.34 cm Tricuspid Valve Peak Velocity (Regurgitant Flow): 2.68 m/s, 2.49 m/s, 2.45 m/s Pulmonic Valve Mean Gradient: 4.56 mm[Hg], 4.27 mm[Hg] Mean Velocity: 1.00 m/s, 0.97 m/s Peak Velocity: 1.38 m/s Peak Gradient: 8.32 mm[Hg], 7.03 mm[Hg] Right Atrium Right Atrium Systolic Pressure: 50.49 ml, 50.49 ml Dictated by: Jesus Bustillo M.D. on 02/23/2023 at 17:10 Approved by: Jesus Bustillo M.D. on 02/23/2023 at 17:13
== END 2023-02-22 14:50 | disposition home or self-care (01) ==
LOC: CARD 14:49
PROVIDERS: Visit Provider Nurse Practitioner Acute Care
DX: R06.00 Dyspnea, unspecified (principal)
CPT/HCPCS: 93306

== ENCOUNTER 2023-04-24 16:25 | Outpatient (OUT) | payer OTHER, SELFPAY ==
[2023-04-24 16:47] LABS: Basophils Percent Auto 0.7 % (0.2-2.0); Eosinophils Absolute Auto 0.2 10^3/uL (0.0-0.7); Eosinophils Percent Auto 4.2 % (0.9-7.0); Hematocrit 30.8 % (36.0-48.0); Hemoglobin 9.3 g/dL (12.0-16.0); Immature Granulocytes Abs Auto 0.01 10^3/uL (0.00-0.03); Immature Granulocytes Pct Auto 0.2 % (0.0-0.5); Mean Corpuscular HGB Conc 30.2 g/dL (29.9-35.2); Mean Corpuscular Hemoglobin 26.1 pg (26.7-34.0); Mean Corpuscular Volume 86.5 fL (81.0-99.0); Mean Platelet Volume 9.4 fL (9.5-13.5); Monocytes Absolute Auto 0.4 10^3/uL (0.3-0.8); Neutrophils Absolute Auto 1.9 10^3/uL (1.4-6.5); Neutrophils Percent Auto 41.9 % (43.0-75.0); Platelet Count 210 10^3/uL (150-450); Red Blood Count 3.56 10^6/uL (4.20-5.40); White Blood Count 4.5 10^3/uL (4.0-11.0)
[2023-04-24 17:33] LABS: Percent Iron Saturation 5.7 %
[2023-04-26 04:07] LABS: Transferrin 327 mg/dL (192-364)
== END 2023-04-24 16:26 | disposition home or self-care (01) ==
PROVIDERS: PCP Internal Medicine; Visit Provider Internal Medicine
DX: D50.9 Iron deficiency anemia, unspecified (principal)
CPT/HCPCS: 36415; 82728; 83540; 83550; 84466; 85025

== ENCOUNTER 2023-06-20 08:26 | Outpatient (OUT) | payer OTHER, SELFPAY | END 2023-06-20 08:27 | disposition home or self-care (01) | LOC: PST 08:26 | PROVIDERS: PCP Internal Medicine; Visit Provider Surgery | DX: Z01.818 Encounter for other preprocedural examination (principal); D50.9 Iron deficiency anemia, unspecified ==

== ENCOUNTER 2023-06-23 15:30 | Outpatient (OUT) | payer OTHER, SELFPAY | END 2023-06-23 15:31 | disposition home or self-care (01) | PROVIDERS: PCP Internal Medicine; Visit Provider Surgery | DX: D64.9 Anemia, unspecified (principal) | CPT/HCPCS: 36415; 82607; 82728; 83540 ==

== ENCOUNTER 2023-07-12 09:23 | Outpatient (OUT) | payer OTHER, SELFPAY ==
--- OUTSIDE RECORDS SUMMARY | 2023-07-12 09:48 | XMS_ITS | CCD ---
Author Name Unknown Address [address] [place] [address] Organization [facility] Care Team Providers Care Roguer Name Role Phone PHYSICIAN, DEFAULT Admitting Unavailable PHYSICIAN, DEFAULT Attending Unavailable TYLER, GRISELDA Primary Care Unavailable Kristin Quintana Unavailable MICHAEL DSOUZA Admitting Unavailable MEET, MICHAEL Attending Unavailable TYLER, DR VILLALOBOS Primary Care Unavailable YOON, DR TMAIKO Dickens Consulting Unavailable MEET, MICHAEL Consulting Unavailable MEET, MICHAEL Admitting Unavailable MEET, MICHAEL Attending Unavailable TYLER, DR VILLALOBOS Primary Care Unavailable YOON, DR TAMIKO Dickens Consulting Unavailable MEET, MICHAEL Consulting Unavailable DAMON, DR ELLIOT Denis Consulting Unavailable TYLER, DR VILLALOBOS Primary Care Unavailable MEET, MICHAEL Attending Unavailable MEET, MICHAEL Admitting Unavailable MEET, MICHAEL Consulting Unavailable HIGHLANDER, TAWANA Dong Admitting Unavailable HIGHLANDER, TAWANA Dong Attending Unavailable HOUSE, DR VILLALOBOS Primary Care Unavailable HIGHLANDER, TAWANA Dong Consulting Unavailable HILLBASHIR Consulting Unavailable HIGHLANDER, TAWANA Dong Admitting Unavailable HIGHLANDER, TAWANA Dong Attending Unavailable TYLER, DR VILLALOBOS Primary Care Unavailable DAMON, DR ELLIOT Denis Consulting Unavailable HIGHLANDER, TAWANA Dong Consulting Unavailable AGUBOSIM, EYAL Consulting Unavailable LYDIA ., ANITA LUU Consulting Unavailable JUNGERMANN, REBECCA Consulting Unavailable YOON, DR TAMIKO Dickens Consulting Unavailable TYLER, DR VILLALOBOS Primary Care Unavailable MEET, MICHAEL Attending Unavailable MEET, MICHAEL Admitting Unavailable MEET, MICHAEL Consulting Unavailable TYLER, DR VILLALOBOS Admitting Unavailable HOUSE, DR VILLALOBOS Attending Unavailable HOUSE, DR VILLALOBOS Primary Care Unavailable HOUSE, DR VILLALOBOS Consulting Unavailable HIGHLSHAMIKA, TAWANA Dong Admitting Unavailable HIGHLANDER, TAWANA Dong Attending Unavailable HOUSE, DR VILLALOBOS Primary Care Unavailable YOON, DR TAMIKO Dickens Consulting Unavailable HIGHLSHAMIKA, TAWANA Dong Consulting Unavailable HIGHLANDER, TAWANA Dong Admitting Unavailable HIGHLANDER, TAWANA Dong Attending Unavailable HOUSE, DR VILLALOBOS Primary Care Unavailable DR ELLIOT JOSE Consulting Unavailable TAWANA FOSTER Consulting Unavailable RONEN BERG Attending Unavailable RONEN BERG Attending Unavailable SHAIKH MAIN Primary Care Physician [phone] Segun HOLLOWAY Attending Unavailable SHAIKH MAIN Attending Unavailable Allergies Allergy Classification Reported Allergen(s) Allergy Type Date of Onset Reaction(s) Facility (1 source) penciclovir Drug Allergy [facility] Other (4 sources) Penicillins; Translations: [PENICILLINS] Drug [facility]disorder[facility] Medications Current Medications Medication Drug Class(es) Dates Sig (Normalized) Sig (Original) ARIPiprazole 10 mg oral tablet (2 sources) Atypical Antipsychotic Start: 05-24-2023 take 1 tablet by mouth once daily aripiprazole 10 mg Tab 10 mg = 1 tab(s), Oral, Daily, Refills(s) 0 Start Date: 05/24/23 Status: Ordered ARIPiprazole Act ada Citalopram (1 source) Serotonin Reuptake Inhibitor Citalopram Hydrobromide Active Cymbalta 30 mg Cap-DR (1 source) Start: 3 take 1 capsule by mouth once daily Cymbalta 30 mg Cap-DR = 1 cap(s), Oral, Daily, Refills(s) 0 Start Date: 05/24/23 Status: Ordered ferrous sulfate 325 mg oral tablet (1 source) Start: 3 take 1 tablet by mouth once daily ferrous sulfate 325 mg Tab 325 mg = 1 tab(s), Oral, Daily, Refills(s) 0 Start Date: 05/24/23 Status: Ordered fexofenadine (1 source) Histamine-1 Receptor Antagonist Start: 3 take 1 tablet by mouth once daily Layla D OTC 24HR 1 tab(s), Oral, Daily, Refill(s) 0 Start Date: 06/07/23 Status: Ordered lansoprazole 30 mg delayed release oral capsule (2 sources) Proton Pump Inhibitor Start: 3 take 1 capsule by mouth once daily lansoprazole 30 mg Cap-DR 30 mg = 1 cap(s), Oral, Daily, Refills(s) 0 Start Date: 05/24/23 Status: Ordered Lansoprazole Act ada meloxicam (1 source) Nonsteroidal Anti-inflammatory Drug Meloxicam Active pregabalin (1 source) Pregabalin Activ e 24 hr tolterodine tartrate 4 mg extended release oral capsule (2 sources) Cholinergic Muscarinic Antagonist Start: 05-24-20 take 1 capsule by mouth once daily Detrol LA 4 mg Cap-ER 4 mg = 1 cap(s), Oral, Daily, Refills(s) 0 Start Date: 05/24/23 Status: Ordered Tolterodine Tart rate ER Active Problems Active Problems Problem Classification Problem Date Documented Da te Episodic/Chronic Anxiety disorders (1 source) Anxiety 05-24-2023 Chronic Cardiac dysrhythmias (2 sources) Palpitations; Translations: [Palpitations] Onset: 3 Episodic Deficiency and other anemia (2 sources) Iron deficiency anemia; Translations: [Iron deficiency anemia, unspecified] Onset: 3 Episodic Esophageal disorders (1 source) Gastroesophageal reflux disease 05-24-2023 Chronic Mood disorders (1 source) Bipolar disorder 05-24-2023 Chronic Osteoarthritis (5 sources) Primary osteoarthritis, left ankle and foot; Translations: [PRIMARY OSTEOARTHRITIS LT ANK FOOT] Onset: 2 Chronic Other acquired deformities (1 source) Contracture, left ankle; Translations: [CONTRACTURE LEFT ANKLE] Onset: 2 Chronic Other aftercare (1 source) Other halfway (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; Translations: [OTH POLICE RECORDS CLERK CURRENT DRUG THERAPY] Onset: 2 Episodic Other connective tissue disease (4 sources) Pain in left foot; Translations: [PAIN IN LEFT FOOT] Onset: 2 Episodic Other connective tissue disease (1 source) Fibromyalgia 05-25-2023 Episodic Other diseases of bladder and urethra (1 source) Overactive bladder 05-24-2023 Chronic Other gastrointestinal disorders (2 sources) Bariatric surgery status; Translations: [BARIATRIC SURGERY STATUS] Onset: 2 Episodic Other lower respiratory disease (2 sources) Other forms of dyspnea; Translations: [Other forms of dyspnea] Onset: 3 Episodic Other non-traumatic joint disorders (1 source) Osteophyte, left foot; Translations: [OSTEOPHYTE LEFT FOOT] Onset: 2 Episodic Other nutritional; endocrine; and metabolic disorders (2 sources) Obesity, unspecified; Translations: [Obesity, unspecified] Onset: 3 Chronic Other nutritional; endocrine; and metabolic disorders (1 source) Body mass index 30+ - obesity 06-07-2023 Chronic Other nutritional; endocrine; and metabolic disorders (1 source) Obesity 05-24-2023 Chronic Other screening for suspected conditions (not mental disorders or infectious disease) (2 sources) Abnormal electrocardiogram [ECG] [EKG]; Translations: [Abnormal electrocardiogram (ECG) (EKG)] Onset: 3 Episodic Peripheral and visceral atherosclerosis (2 sources) Peripheral vascular disease, unspecified; Translations: [Peripheral vascular disease] Onset: 2 05-24-2023 Chronic Residual codes; unclassified (1 source) Acquired absence of other specified parts of digestive tract; Translations: [ACQ ABSENCE OTH PART DIGESTV TRACT] Onset: 2 Episodic Residual codes; unclassified (2 sources) Localized edema; Translations: [Localized edema] Onset: 3 Episodic Substance-related disorders (4 sources) Nicotine dependence, cigarettes, uncomplicated; Translations: [Nicotine dependence, unspecified, uncomplicated] Onset: 2 Chronic Unclassified (4 sources) CONTACT W/AND (SUSP) EXPOS COVID-19; Translations: [CONTACT W/AND (SUSP) EXPOS COVID-19] Onset: 1 Unclassified (1 source) 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 Past or Other Problems Problem Classification Problem Date Documented Da te Episodic/Chronic Immunizations and screening for infectious disease (1 source) Contact with and (suspected) exposure to other viral communicable diseases Onset: 08-30-2021 Resolved: 08-30-2021 Episodic Other circulatory disease (1 source) Other specified symptoms and signs involving the circulatory and respiratory systems; Translations: [OTH SPEC SX SIGNS INVLV CIRC RS] Onset: 02-26-2022 Episodic Other upper respiratory infections (1 source) Acute upper respiratory infection, unspecified Onset: 08-30-2021 Resolved: 08-30-2021 Episodic Unclassified (1 source) CONTACT W/AND (SUSP) EXPOS COVID-19; Translations: [CONTACT W/AND (SUSP) EXPOS COVID-19] Onset: 06-07-2021 Results Test Name Value Interpretation Reference Range Facil ity Lab Reportson 06-26-2023 Lab Reports [id number]#1.00T IFF Normal [facility] Insurance Correspondenceon 1 08-09-2022 Insurance Correspondence [id number]#1.00TIFF Normal [facility] Facesheeton 06-08-2023 Facesheet [id number]#1.00T IFF Normal [facility] Physician Referralon 023 Physician Referral [id number]#1.00TIFF [facility] Ambulatory Visit Summaryon 1 08-07-2022 Ambulatory Visit Summary TALIA MERCADO Letitia :1970 Visit Date:06/07/2023 Ambulatory Visit Instructions Your Care Team Attending Physician - AMIE WELLER, Segun Denis Primary Care Physician - EFREM WELLER, This Is Your Medications List aripiprazole (aripiprazole 10 mg Tab) duloxetine (Cymbalta 30 mg Cap-DR) ferrous sulfate (ferrous sulfate 325 mg Tab) fexofenadine-pseudoephedrine (Layla D OTC 24HR) lansoprazole (lansoprazole 30 mg Cap-DR) tolterodine (Detrol LA 4 mg Cap-ER) Procedures Performed EGD - esophagogastroduodenoscopy (02/09/2023), Gastric bypass (2019), Cystoscopy (2018), Cystoscopy (2017), Cholecystectomy, Repair of cystocele, Tubal ligation. Discharge Vitals Heart Rate (Peripheral) 72 Respiratory Rate 16 Blood Pressure 130/88 Height 165.1 cm Height 65 in Weight 101.8 kg Weight 223.96 lb BMI 37.35 Medications What How Much When Instructions Unchanged aripiprazole (aripiprazole 10 mg Tab) 1 Tablets By Mouth Every day Unchanged duloxetine (Cymbalta 30 mg Cap-DR) 1 Capsules By Mouth Every day Unchanged ferrous sulfate (ferrous sulfate 325 mg Tab) 1 Tablets By Mouth Every day Unchanged fexofenadine-pseudoephedrine (Layla D OTC 24HR) 1 Tablets By Mouth Every day Unchanged lansoprazole (lansoprazole 30 mg Cap-DR) 1 Capsules By Mouth Every day Unchanged tolterodine (Detrol LA 4 mg Cap-ER) 1 Capsules By Mouth Every day Medications and Immunizations Administered Not Given influenza virus vaccine, inactivated, Patient Refuses Allergies penicillins (Hives) Problems Ongoing - Any problem that you are currently receiving treatment for. Anxiety Bipolar disorder BMI 37.0-37.9, adult Fibromyalgia GERD (gastroesophageal reflux disease) Iron deficiency anemia Nicotine dependence Obesity Overactive bladder PVD (peripheral vascular disease) Patient Survey You may receive a survey via text or e-mail asking about your office visit. Please share your experience with us by completing your survey. We appreciate your feedback and thank you for choosing us for your care. [facility] Lab Reportson 05-31-2023 Lab Reports [id number]#1.00T IFF [facility] Consultation Noteon 05-25-20 Consultation Note [id number]#1.00TIFF [facility] Consultation Noteon 05-24-20 Consultation Note [id number]#1.00TIFF [facility] Lab Reportson 05-24-2023 Lab Reports [id number]#1.00T IFF [facility] Operative Reporton Operative Report [id number]#1.00TIFF [facility] Physician Referralon 023 Physician Referral [id number]#1.00TIFF [facility] Office Visiton 04-07-2023 Follow-up visit [id number] Norma Mercado 1970 F Date Provider Department Center 04/07/2023 [id number] JACOBO Hos Family History Problem Relation Age of Onset Brain Aneurysm Mother 80 Diabetes Mother Heart failure Father 80 Diabetes Father Hypertension Father Diabetes Sister Family Status - Relation Status Age at Mother Father Sister Level of Service:79298 ND OFFICE/OUTPATIENT ESTABLISHED MOD MDM 30-39 MIN Normal [facility] 36on 02-08-2023 36 H lab called to re port critical HGB and hematocrit for patient: HGB was 5.1 and hematocrit is 18.9. I spoke with Talia and advised she go to the ED. She verbalized understanding and will do so. Normal [facility] Office Visiton 02-08-2023 Follow-up visit [id number] Norma Mercado 1970 F Date Provider Department Center 02/08/2023 [id number] JACOBO [facility] Family History Problem Relation Age of Onset Brain Aneurysm Mother 80 Diabetes Mother Heart failure Father 80 Diabetes Father Hypertension Father Diabetes Sister Family Status - Relation Status Age at Mother Father Sister Level of Service:96962 ND OFFICE/OUTPATIENT NEW MODERATE MDM 45-59 MINUTES Reason for Visit and Comments: Establish Care [42] - Swelling in both legs,right leg is itching and painful Shortness of Breath [949981] Dizziness [032842] Fatigue [46] Normal [facility] PREG HCG QUALon 03-10-2022 , QUAL Negative Normal NEGATIVE [facility] Comment on above: Performed By: #### P REG ####[facility] [address] [address]DrConsuelo Johnson Covid-19 PCR (CVDTBH)on 02-21 SARS-CoV-2 (COVID-19) RNA EMMANUEL+probe Ql (Unsp spec) Not detected Normal NOT DETECTED [facility] Comment on above: Result Comment: This test is not yet approved or cleared by the [place] FDA. When there are no FDA-approved or cleared tests available, and other criteria are met, FDA can make tests available under an emergency access mechanism called an Emergency Use Authorization (EUA). The EUA for this test is supported by the [place] of Health and Human Service's (HHS's) declaration that circumstances exist to justify the emergency use of in vitro diagnostics for the detection and/or diagnosis of the virus that causes COVID-19. This EUA will remain in effect (meaning this test can be used) for the duration of the COVID-19 declaration justifying emergency of IVDs, unless it is terminated or revoked by FDA (after which the test may no longer be used). When diagnostic testing is negative, the possibility of a false negative should be considered in the context of a patient's recent exposures and the presence of clinical signs and symptoms consistent with SARS-CoV-2. Performed By: #### C VDTB #### [facility] [address] [address] [address] Moni Johnson PROF CHEM 8 (BAS METB)on Anion gap [Moles/Vol] 9.0 mmol/L Normal [facility] Comment on above: Performed By: #### B MP ####[facility] [address] [address]DrConsuelo Johnson Calcium [Mass/Vol] 8.3 mg/dL Critically low 8.5-10.1 Th [facility] Comment on above: Performed By: #### B MP ####[facility] [address] [address]Dr. Moni Johnson Chloride [Moles/Vol] 106 mmol/L Normal 98-107 [facility] Comment on above: Performed By: #### B MP ####[facility] [address] [address]DrConsuelo Johnson CO2 [Moles/Vol] 29.2 mmol/L Normal 21.0-32.0 [facility] Comment on above: Performed By: #### B MP ####[facility] [address] [address]DrConsuelo Johnson Creatinine [Mass/Vol] 0.78 mg/dL Normal 0.55-1.02 [facility] Comment on above: Performed By: #### B MP ####[facility] [address] [address]Dr. Moni Johnson EGFR-AF MICRONESIAN >60 Normal >=60 [facility] Comment on above: Performed By: #### B MP ####[facility] [address] [address]Dr. Moni Johnson EGFR-NON AF MICRONESIAN >60 Normal >=60 [facility] Comment on above: Performed By: #### B MP ####[facility] [address] [address]Dr. Moni Johnson Glucose [Mass/Vol] 88 mg/dL Normal 74-106 [facility] Comment on above: Performed By: #### B MP ####[facility] [address] [address]Dr. Moni Johnson Potassium [Moles/Vol] 4.2 mmol/L Normal 3.5-5.1 [facility] Comment on above: Performed By: #### B MP ####[facility] [address] [place], [place] [address]Dr. Moni Johnson Sodium [Moles/Vol] 140 mmol/L Normal 136-145 [facility] Comment on above: Performed By: #### B MP ####[facility] [address] [address]Dr. Moni Johnson Urea nitrogen [Mass/Vol] 21.0 mg/dL Critically high 7.0-[address] [facility] Comment on above: Performed By: #### B MP ####[facility] [address] [place], [place] [address]Dr. Moni Johnson Urea nitrogen/Creatinine [Mass ratio] 26.9 mg/mg Normal [facility] Comment on above: Performed By: #### B MP ####[facility] [address] [place], [place] [address]Dr. Moni Johnson CT FOOT LT WO CONon 02-23-20 CT FOOT LT WO CON EXAMINATION: CT FOOT LT WO CON HISTORY: Idiopathic osteoarthritis COMPARISON: XR foot left 02/09/2022 TECHNIQUE: Multi-planar CT images were created without IV contrast. Dose reduction techniques were achieved by using automated exposure control and/or adjustment of mA and/or kV according to patient size and/or use of iterative reconstruction technique. FINDINGS: BONES: Complete loss of joint space with subchondral cysts, endplate destruction, and sclerosis involving the second and third tarsal-metatarsal joints. Mild-moderate degenerative changes of the first and fourth tarsal-metatarsal joints. Mild degenerative changes of the navicular-medial cuneiform joint. No fracture or dislocation. Large calcaneal plantar spur. SOFT TISSUES: Mild dorsal soft tissue swelling. EFFUSION: None visible. OTHER: Negative. IMPRESSION: 1. Multifocal degenerative changes, with advanced degenerative changes involving the second and third tarsal-metatarsal joints. 2. No acute bone abnormality. Electronically authenticated by: ELLIOT JOSE Date: 2022-02-22 18:32 Normal [facility] COVID Quick Testingon 2021 Result Negative [facility] Other Quick Fluon 08-30-2021 FLUAV Ab CF (S) [Titer] Negative N [employer] Other FLUBV Ab CF (S) [Titer] Negative N [employer] Other Covid-19 PCR ([facility])on 05-24 SARS-CoV-2 (COVID-19) RNA EMMANUEL+probe Ql (Unsp spec) Not detected Normal NOT DETECTED [facility] Comment on above: Result Comment: This test is not yet approved or cleared by the [place] FDA. When there are no FDA-approved or cleared tests available, and other criteria are met, FDA can make tests available under an emergency access mechanism called an Emergency Use Authorization (EUA). The EUA for this test is supported by the [place] of Health and Human Service's (HHS's) declaration that circumstances exist to justify the emergency use of in vitro diagnostics for the detection and/or diagnosis of the virus that causes COVID-19. This EUA will remain in effect (meaning this test can be used) for the duration of the COVID-19 declaration justifying emergency of IVDs, unless it is terminated or revoked by FDA (after which the test may no longer be used). When diagnostic testing is negative, the possibility of a false negative should be considered in the context of a patient's recent exposures and the presence of clinical signs and symptoms consistent with SARS-CoV-2. Performed By: #### C VDGAEBL[facility] #### [facility] [address] [place] [address] Dr. Moni Johnson Vital Signs Date Time Vital Sign Value Performing Clinician Facility 06-07-2023 16:03-0500 Blood Pressure Location [employer] [facility] 06-07-2023 16:03-0500 Diastolic blood pressure 88 mm[Hg] [facility] [facility] 06-07-2023 16:03-0500 Heart rate 72 /min [employer] [facility] 06-07-2023 16:03-0500 Respiratory rate 16 /min [employer] [facility] 06-07-2023 16:03-0500 Systolic blood pressure 130 mm[Hg] [employer] [facility] 08-30-2021 13:00-0500 Body height 165.1 cm Kristin Ginty Other [facility] Other 08-30-2021 13:00-0500 Body mass index (BMI) [Ratio] 30.95 kg/m2 Kristin Ginty Other [facility] Other 08-30-2021 13:00-0500 Body temperature 98 [degF] Kristin Ginty Other [facility] Other 08-30-2021 13:00-0500 Body weight 84.37 kg Kristin Ginty Other [facility] Other 08-30-2021 13:00-0500 Respiratory rate 16 /min Kristin Ginty Other [employer] Other 08-30-2021 13:00-0500 SaO2% (BldA) [Mass fraction] 98 % Kristin Ginty Other [facility] Other Encounters Encounter Date Encounter Type Care Provider Facility Start: 07-04-2023 End: 07-04-2023 ambulatory SHAIKH EFREM Not Available Start: 06-07-2023 End: 06-08-2023 ambulatory Segun R NILL Facility:[facility] Start: 06-07-2023 End: 06-07-2023 Patient encounter procedure Segun R NILL [facility] [place] Start: 06-05-2023 ambulatory Segun NILL Facility:[facility] Start: 05-18-2023 ambulatory Segun WILLARDL Facility:[facility] [place] Start: 04-07-2023 End: 04-07-2023 ambulatory [facility] Start: 02-08-2023 ambulatory [facility] Start: 05-31-2022 End: 06-01-[address] TAMIKO NETTLES Facility:[facility] Start: 05-10-2022 End: 05-11-[address] ELLIOT JOSE Facility:[facility] Start: 04-19-2022 End: 04-20-2022 ambulatory MICHAEL DSOUZA Facility:[facility] Start: 03-29-2022 End: 03-30-2022 ambulatory MICHAEL DSOUZA Facility:[facility] Start: 03-10-2022 End: 03-10-2022 ambulatory TAWANA FOSTER Facility:[facility] Start: 03-07-2022 Encounter for preprocedural cardiovascular examination TAWANA FOSTER [facility] Start: 03-07-2022 Encounter for preprocedural laboratory examination TAWANA FOSTER [facility] Start: 03-03-2022 End: 03-04-2022 ambulatory TAWANA FOSTER Facility:[facility] Start: 03-03-2022 End: 03-04-2022 Encounter for preprocedural laboratory examination TAWANA FOSTER Facility:[facility] Start: 02-22-2022 End: 02-23-2022 ambulatory TAWANA FOSTER Facility:[facility] Start: 02-09-2022 End: 02-10-2022 ambulatory TAWANA FOSTER Facility:[facility] Start: 08-30-2021 End: 08-30-2021 ambulatory Kristin Quintana Other [employer] Other Start: 08-30-2021 Office outpatient vi sit 15 minutes Kristin Quintana [facility] Start: 06-07-2021 End: 06-07-[address] GRISELDA SCOTT Facility:[facility] Start: 11-14-2018 End: 11-15-2018 Patient encounter procedure DEFAULT PHYSICIAN Facility:[facility] Procedures Date Procedure Procedure Detail Performing Clinician Start: 02-09-2023 Esophagogastroduodenoscopy Segun NILL Start: 07-24-2019 Bypass of stomach Wagner indra NILL Start: 07-24-2018 Transurethral cystoscopy Segun NILL Start: 07-24-2017 Transurethral cystoscopy Segun NILL Cholecystectomy Segun NILL Ligation of fallopian tube Lashaun davis NILL Repair of cystocele Segun NILL Immunizations Immunization Date Immunization Notes Care Provider Trena loving NEGATED: Highlighted row has not occurred!06-07-2023 influenza virus vaccine, unspecified formulation Segun [employer] [place] Payers Date Payer Category Payer Unknown [id number] 2.16.8 [id number] 1970 Unknown [id number] 2.16.84 [id number] 1970 Unknown [id number] 2.16.84 [id number] 1970 Unknown [id number] 2.16.84 [id number] 1970 Unknown [id number] 2.16.84 [id number] 1970 Unknown [id number] 2.16.84 [id number] 1970 Unknown [id number] 2.16.84 [id number] 1970 Unknown [id number] 2.16.84 [id number] 1970 Unknown [id number] 2.16.84 [id number] 1971 Unknown [id number] 2.16.84 [id number] 1971 Unknown [id number] 2.16.8 [id number] 1971 Unknown [id number] 2.16.8 [id number] 1971 Unknown [id number] 2.16.8 [id number] 1971 Unknown [id number] 1958 Private Health Insurance [id number] Unknown Social History Date Type Detail Facility Unknown if ever smoked [facility] Other Sex Assigned At [facility] Start: 06-07-2023 Tobacco smoking status Heavy tobacco smoker (finding) [facility] Tobacco smoking status Former smokeless tobacco user, quit more than 30 days ago [facility] Functional Status Date Assessment Result Facility 06-07-2023 Functional Status N/A [facility] Clinical Notes 08-30-2021 to 06-07-2023 Note Date & Type Note Facility 06-07-2023 Note Chief Complaint consultation for colonoscopy HPI Staff 53 year old female presents on consultation from Dr. Bustamante for colonoscopy. Patient hospitalized in January with HGB of 4.8. At that time, patient was experiencing profound fatigue, dizziness and SOB. EGD was completed and normal. Patient left AMA prior to colonoscopy being completed. States symptoms have resolved. H/H completed 04/24- 9.3/30.8. She is taking Ferrous Sulfate 325mg daily. Denies abdominal or rectal pain. Scant intermittent rectal bleeding with wiping for which she contributes to straining for bowel movement. Reports blood is bright red. Denies change in bowel habits. Denies nausea or vomiting. No unexplained weight loss. Never had colonoscopy in the past. Patient with history of gastric bypass completed in 2019. No known family history of colon cancer. History of Present Illness 53 yo female with h/o bipolar d/o, PVD, GERD, anxiety, fibromyalgia, referred for severe anemia, admitted to [facility] in January with hb of 5; received 4 U PRBC with improvement; had negative EGD; recent hb stable at 9, on ferrous sulfate; denies change in bms or blood in stools, no abd complaints; abd operations significant for tubal ligation, cholecystectomy and gastric bypass; does not take B 12 supplementation; no previous colonoscopy; no fmhx of GI malignancy or IBD; smokes daily. Review of Systems PHQ Score Initial Depression Screen Score: 0 SCORE ROS - Provider Constitutional: no fever, no sweats, no weight loss. Eyes: no glasses, no blurred vision, no visual loss. ENMT: no dentures, no hoarseness, no swallowing difficulties, no hearing loss, no ear infection(s), no nose bleeds. Cardiovascular: normal blood pressure, no chest pain, regular heartbeat, no heart murmur. Respiratory: no shortness of breath, no cough, no asthma, no wheezing. Gastrointestinal: no nausea, no vomiting, no diarrhea, no constipation, no blood in stool, no change in bowel habits, no abdominal pain, no hepatitis. Genitourinary: no kidney stones, no urine infection, no dysuria. Musculoskeletal: no pain, no weakness. Skin: no changing moles, no rash, no skin lumps. Neurologic: no seizures, no epilepsy, no headache. Psychiatric: no emotional or psychiatric problem. Heme/Lymph: no bleeding problems, no anemia, no blood clots, no transfusions. Allergy/Immunologic: no swollen lymph nodes/glands, no IV drug abuse. Other: Additional ROS info: Except as noted in the above Review of Systems and in the History of Present Illness, all other systems have been reviewed and are negative or noncontributory. Physical Exam Vitals & Measurements HR: 72(Peripheral) RR: 16 BP: 130/88 HT: 65 in HT: 165.1 cm WT: 101.8 kg WT: 223.96 lb BMI: 37.35 HEENT: normal conjunctiva, sclera clear, no scleral icterus, EOM intact, PERRLA, oral mucosa moist without lesions. Neck: trachea midline, no mass, symmetric, no thyromegaly or nodules, no adenopathy Respiratory: lungs CTA, respirations non labored. Cardiovascular: regular rate and rhythm, no murmur, no pedal edema or varicosities. Gastrointestinal: obese, soft, non distended, no tenderness, no masses, no palpable hernias, diastasis recti no, no hepatosplenomegaly; normal bs Lymphatic: no cervical adenopathy, no supraclavicular adenopathy. Musculoskeletal: normal gait, digits and nails without infection, nodes, cyanosis, clubbing. Skin: no rashes, no lesions, no ulcers, no subcutaneous nodules, induration. Psychiatric/Neuro: oriented to time, place, person, judgement normal, affect appropriate for age, insight intact, no focal deficits. Tests: labs reviewed review of old records completed , Discussed surgical options, risks, and possible complications with patient. Assessment/Plan 1. Iron deficiency anemia (D50.9: Iron deficiency anemia, unspecified) plan colonoscopy under anesthesia for further evaluation, informed consent obtained. 2. History of gastric bypass (Z98.84: Bariatric surgery status) check B 12 and iron/ferritin levels. Anemia (D64.9: Anemia, unspecified) Ordered: Ferritin Iron Level Vitamin B12 Level Follow-up No qualifying data available Problem List/Past Medical History Ongoing Anxiety Bipolar disorder BMI 37.0-37.9, adult Fibromyalgia GERD (gastroesophageal reflux disease) History of gastric bypass Iron deficiency anemia Nicotine dependence Obesity Overactive bladder PVD (peripheral vascular disease) Historical No qualifying data Procedure/Surgical History EGD - esophagogastroduodenoscopy (02/09/2023), Gastric bypass (2019), Cystoscopy (2018), Cystoscopy (2017), Cholecystectomy, Repair of cystocele, Tubal ligation. Medications Layla D OTC 24HR, 1 tab(s), Oral, Daily aripiprazole 10 mg Tab, 10 mg= 1 tab(s), Oral, Daily Cymbalta 30 mg Cap-DR, 1 cap(s), Oral, Daily Detrol LA 4 mg Cap-ER, 4 mg= 1 cap(s), Oral, Daily ferrous sulfate 325 mg Tab, 325 mg= 1 tab(s), Oral, Daily lansoprazole 30 mg Cap-DR, 30 mg= (more content not included)... [facility] Comment on above: Result Comment: Elec tronically Signed By: AMIE WELLER, Segun Graham\Date and Time Signed: 06/07/23 17:17 EST 06-07-2023 Evaluation + Plan note Diagnostic Tests PendingIron Level 06/07/23Ferritin 06/07/23Vitamin B12 Level 06/07/23 [facility] [place] 04-07-2023 Note Cardiology Clinic No te Subjective Talia Mercado is a 53 y.o. year old female patient with past medical history of anemia requiring transfusion, depression, and tobacco dependence seen in follow-up. There is no problem list on file for this patient. Family History Problem Relation Name Age of Onset Brain Aneurysm Mother 80 Diabetes Mother Heart failure Father 80 Diabetes Father Hypertension Father Diabetes Sister Social History Tobacco Use Smoking status: Every Day Packs/day: 1.00 Types: Cigarettes Smokeless tobacco: Never HPI Talia Mercado is a 52 y.o. female with past medical history of depression here to establish care. She developed bilateral lower extremity edema R>L and dyspnea on exertion without mundane activities such as walking to the mailbox about a month ago. She reports a lower extremity duplex about 3-4 weeks ago which was negative for DVT. She has also experienced brief sharp chest pains lasting seconds as well as palpitations. Father of congestive heart failure in his 80s, no other immediate family history of heart disease, no known family history SCD. No personal history of hyperlipidemia, hypertension, or diabetes. She smokes 1-1.5 ppd with 36-54 pack-year history. Update: 04/07/2023 Her blood work to evaluate dyspneic symptoms revealed severe anemia with Hgb of 5.1 We advised ED presentation where she was admitted and received 4 units PRBCs She had an EGD which was unrevealing and left the hospital AMA as she had a court date Today she reports complete resolution of dyspnea and palpitations Her lower extremity edema has nearly resolved She is scheduled to establish care with PCP next week Review of Systems Cardiovascular: Positive for leg swelling. Negative for chest pain, dyspnea on exertion, irregular heartbeat, near-syncope, orthopnea, palpitations, paroxysmal nocturnal dyspnea and syncope. Objective Visit Vitals BP 97/61 (BP Location: Left arm, Patient Position: Sitting) Pulse 70 Ht 1.651 m (5' 5 ) Wt 102 kg (224 lb) SpO2 97% BMI 37.28 kg/m??? Smoking Status Every Day BSA 2.16 m??? Physical Exam General: Awake, alert, NAD Pulm: Breath sounds clear to ascultation bilaterally with no wheeze, crackles or rhonchi Cards: Regular rate and rhythm, S1, S2. No S3 or S4 gallop. Murmur: none Extr: Lower extremity edema: trace. Skin: warm, dry, well perfused Neuro: A&Ox3, No gross deficits Allergies Allergies Allergen Reactions Penicillins Medications Current Outpatient Medications: ARIPiprazole (Abilify) 5 mg tablet, Take 10 mg by mouth in the morning., Disp: , Rfl: cholecalciferol (Vitamin D-3) 25 MCG (1000 UT) capsule, Take 1 capsule every day by oral route., Disp: , Rfl: citalopram (CeleXA) 40 mg tablet, Take 40 mg by mouth in the morning., Disp: , Rfl: lansoprazole (Prevacid) [address] capsule, Take 30 mg by mouth in the morning., Disp: , Rfl: tolterodine LA (Detrol LA) 4 mg 24 hr capsule, Take 4 mg by mouth in the morning., Disp: , Rfl: traZODone (Desyrel) 50 mg tablet, Take 50 mg by mouth if needed each day., Disp: , Rfl: Recent Labs 02/09/2023 Hemoglobin 9 02/08/2023 WBC 4.5, hemoglobin 12.8, hematocrit 18.2, platelets 233 02/08/2023 WBC 5.2, hemoglobin 5.1, hematocrit 18.9, platelets 289 Sodium 143, potassium 4.5, chloride 108, BUN 15, serum creatinine 0.82, estimated GFR greater than 60%, AST 13, ALT 13 NT proBNP 251 (less than 900) Total cholesterol 88, HDL 37, LDL 38, triglycerides 68 TSH 5.021 (0.358-3.7) Imaging and other tests Echocardiogram: 02/22/2023 Mild concentric left ventricular hypertrophy with normal systolic function. LVEF is 55% Normal right ventricular size and systolic function Normal diastolic function No significant valvular dysfunction Normal right-sided pressures Assessment Diagnoses and all orders for this visit: Dyspnea on exertion Tobacco dependence Abnormal thyroid blood test Acute anemia Palpitations Plan 1. Dyspnea on exertion -In setting of severe anemia with a hemoglobin in the 4-5 range. Symptoms have completely resolved following transfusion. I reviewed her echocardiogram which showed a preserved left ventricular ejection fraction without wall motion or significant valvular abnormalities. -Given complete resolution of her symptoms, will defer further testing in this regard. I have emphasized the need to follow-up with her PCP/GI to complete work-up for anemia as no source of bleeding was found during hospitalization. 2. Tobacco dependence -Counseled on smoking cessation, she is not ready to quit at this time. 3. Abnormal thyroid blood test -Recommend follow-up with PCP for further evaluation and management. 4. Anemia -Asymptomatic, I offered repeat blood work today, however she has an upcoming appointment with PCP in less than a week. She follow-up at that time. 5. Palpitations -Resolved, likely exacerbated (more content not included)... [facility] 04-07-2023 Note Patient here for 2 m o follow up and to re-discuss ischemic workup, which was put off due to anemia. She did have echo last month. She has not had repeat labs since hospital stay in January. She is trying to get in to see new PCP Dr. Main for GI referral. She denies chest pain, SOB, palpitations, and lightheadedness. Says she's felt great since blood transfusion. Review of Systems All other systems reviewed and are negative. [facility] 02-08-2023 Note Cardiovascular Medic [facility] SUBJECTIVE Chief Complaint Patient presents with Establish Care Swelling in both legs,right leg is itching and painful Shortness of Breath Dizziness Fatigue Shortness of Breath Associated symptoms include chest pain. Pertinent negatives include no leg swelling, orthopnea, PND or syncope. Dizziness Associated symptoms include chest pain and fatigue. Fatigue Associated symptoms include chest pain and fatigue. Talia Mercado is a 52 y.o. female with past medical history of depression here to establish care. She developed bilateral lower extremity edema R>L and dyspnea on exertion without mundane activities such as walking to the mailbox about a month ago. She reports a lower extremity duplex about 3-4 weeks ago which was negative for DVT. She has also experienced brief sharp chest pains lasting seconds as well as palpitations. Father of congestive heart failure in his 80s, no other immediate family history of heart disease, no known family history SCD. No personal history of hyperlipidemia, hypertension, or diabetes. She smokes 1-1.5 ppd with 36-54 pack-year history. Allergies Allergen Reactions Penicillins There is no problem list on file for this patient. Past Medical History: Diagnosis Date Depression Past Surgical History: Procedure Laterality Date FOOT SURGERY GASTRIC BYPASS TUBAL LIGATION Family History Problem Relation Name Age of Onset Brain Aneurysm Mother 80 Diabetes Mother Heart failure Father 80 Diabetes Father Hypertension Father Diabetes Sister Social History Tobacco Use Smoking status: Every Day Types: Cigarettes Smokeless tobacco: Never Review of Systems Constitutional: Positive for fatigue. Cardiovascular: Positive for chest pain, dyspnea on exertion and palpitations. Negative for irregular heartbeat, leg swelling, near-syncope, orthopnea, paroxysmal nocturnal dyspnea and syncope. Respiratory: Positive for shortness of breath. Neurological: Positive for dizziness. OBJECTIVE Visit Vitals BP 90/56 (BP Location: Left arm, Patient Position: Sitting, BP Cuff Size: Large adult) Pulse 80 Ht 1.651 m (5' 5 ) Wt 98.4 kg (217 lb) SpO2 99% BMI 36.11 kg/m??? Smoking Status Every Day BSA 2.12 m??? Medications: Current Outpatient Medications: ARIPiprazole (Abilify) 5 mg tablet, Take 10 mg by mouth in the morning., Disp: , Rfl: cholecalciferol (Vitamin D-3) 25 MCG (1000 UT) capsule, Take 1 capsule every day by oral route., Disp: , Rfl: citalopram (CeleXA) 40 mg tablet, Take 40 mg by mouth in the morning., Disp: , Rfl: lansoprazole (Prevacid) [address] capsule, Take 30 mg by mouth in the morning., Disp: , Rfl: tolterodine LA (Detrol LA) 4 mg 24 hr capsule, Take 4 mg by mouth in the morning., Disp: , Rfl: traZODone (Desyrel) 50 mg tablet, Take 50 mg by mouth if needed each day., Disp: , Rfl: Physical Exam Constitutional: Appearance: Normal appearance. Cardiovascular: Rate and Rhythm: Normal rate and regular rhythm. Pulses: Normal pulses. Heart sounds: No murmur heard. No friction rub. Pulmonary: Effort: Pulmonary effort is normal. Musculoskeletal: General: Swelling present. Neurological: General: No focal deficit present. Mental Status: She is alert and oriented to person, place, and time. Labs: No recent labs Testing/Procedures: No echocardiogram results found for the past 14 days No echocardiogram results found for the past 12 months No results found for this or any previous visit (from the past 4464 hour(s)). ASSESSMENT/PLAN: Diagnosis Plan 1. Dyspnea on exertion ECG 12 lead Comprehensive metabolic panel Lipid panel CBC Magnesium Complete Echo (TTE) w/wo Imaging Agent, Strain, 3D, Bubble Study Treadmill Stress Myocardial Perfusion Imaging B-type natriuretic peptide 2. Palpitations ECG 12 lead TSH3 Reflex to FT4 Cardiac event monitor 3. Obesity (BMI 35.0-39.9 without comorbidity) 4. Tobacco dependence 5. Bilateral lower extremity edema 6. Abnormal ECG Plan 1. Dyspnea on exertion -Worsening dyspnea on exertion. Will obtain an echocardiogram to evaluate how LV function and rule out structural heart disease, additionally will obtain a stress test for ischemic evaluation. Her risk factors include obesity and longstanding smoking history. -Will obtain labs For anemia and other etiologies of her symptoms. 2. Palpitations -ECG here shows sinus rhythm with aberrant conduction, will obtain labs to rule out electrolyte abnormalities. We will also obtain an event monitor to rule out any underlying arrhythmias. 3. Bilateral lower extremity edema -Negative duplex for DVT. Will obtain BNP and echocardiogram as noted above. 4. Tobacco dependence -Counseled on smoking cessation. Follow up in about 6 weeks (around 03/22/2023). Ronen Berg APRN-[facility] Cardiovascular Medicine [facility] 05-31-2022 Note PROCEDURE: XR FOOT L T MIN 3 VIEWS COMPARISON: 05/10/2022 HISTORY: Pain in left foot FINDINGS: BONES:No acute fracture or dislocation. Fusion of the second tarsometatarsal joint with a dorsal plate and screws. Single screw across the third tarsal metatarsal joint. Permeative pattern of the bones suggests osteopenia. Moderate plantar enthesopathic spurring of the calcaneus SOFT TISSUES:Dorsal foot soft tissue swelling EFFUSION:None visible. OTHER: Negative. IMPRESSION: Stable postsurgical changes Electronically authenticated by: TAMIKO NETTLES Date: 2022-05-31 20:30 [facility] 05-11-2022 Note PROCEDURE: XR FOOT L T MIN 3 VIEWS HISTORY: Pain in left foot COMPARISON: XR foot left 04/19/2022 FINDINGS: BONES:Mechanical fusion of the second and third tarsal-metatarsal joints without evidence of hardware fracture or loosening. Mild flattening of plantar arch. Large calcaneal plantar spur. SOFT TISSUES:No visible soft tissue swelling. EFFUSION:None visible. OTHER: Negative. IMPRESSION: 1. Stable surgical changes without evidence of hardware failure or change in alignment. 2. Stable mild degenerative changes. Electronically authenticated by: ELLIOT JOSE Date: 2022-05-11 16:14 [facility] 04-19-2022 Note PROCEDURE: XR FOOT L T MIN 3 VIEWS COMPARISON: 03/29/2022 HISTORY: Pain in left foot FINDINGS: BONES:No acute fracture or dislocation. Fusion of the second tarsal metatarsal joint with a dorsal plate and screws. Single screw across the third tarsal metatarsal joint from distal to proximal. Permeative pattern of the bones suggests osteopenia. Mild degenerative changes. Moderate enthesopathic spurring plantar calcaneus SOFT TISSUES:Dorsal soft tissue swelling. Postsurgical skin kenyetta EFFUSION:None visible. OTHER: Negative. IMPRESSION: Stable tarsometatarsal fusion Electronically authenticated by: TAMIKO NETTLES Date: 2022-04-19 18:16 [facility] 03-30-2022 Note PROCEDURE: XR FOOT L T MIN 3 VIEWS COMPARISON: 03/10/2022 HISTORY: Pain in left foot FINDINGS: BONES:Fusion of the second tarsometatarsal joint with a dorsal plate and screws. Single screw across the third tarsometatarsal joint. Bone fragment along the proximal navicular, remote injury favored. Moderate plantar enthesopathic spurring of the calcaneus SOFT TISSUES:Dorsal foot soft tissue swelling with surgical skin eknyetta EFFUSION:None visible. OTHER: Negative. IMPRESSION: Stable fusion of the second and third tarsometatarsal joints Electronically authenticated by: TAMIKO NETTLES Date: 2022-03-30 06:41 [facility] 03-11-2022 Note PROCEDURE: XR FOOT L T MIN 3 VIEWS HISTORY: Postoperative visit COMPARISON: XR foot left 03/10/2022 intraoperative images FINDINGS: BONES:Mechanical fusion of the second tarsal-metatarsal joint via dorsal plate and screws. Mechanical fusion of the third tarsal-metatarsal joint via single screw. SOFT TISSUES:Dorsal soft tissue swelling and skin kenyetta. Images were obtained through cast material. EFFUSION:None visible. OTHER: Negative. IMPRESSION: 1. Postoperative mechanical fusion of the second and third tarsal metatarsal joints. Electronically authenticated by: ELLIOT JOSE Date: 2022-03-11 08:26 [facility] 03-11-2022 Note PROCEDURE: XR FOOT L T 2V HISTORY: Pain COMPARISON: XR foot left 02/09/2022 FINDINGS: BONES:Multiple intraoperative images demonstrate mechanical fusion of the second and third tarsal-metatarsal joints. SOFT TISSUES:Expected intraoperative findings. EFFUSION:None visible. OTHER: Negative. IMPRESSION: 1. Mechanical fusion of second and third tarsal-metatarsal joints. Electronically authenticated by: ELLIOT JOSE Date: 2022-03-11 07:55 [facility] 02-10-2022 Note PROCEDURE: XR FOOT L T MIN 3 VIEWS COMPARISON: 12/15/2020 HISTORY: Pain FINDINGS: BONES:No acute fracture or dislocation. Stable moderate degenerative changes most significant at the tarsometatarsal joints. Moderate plantar enthesopathic spurring of the calcaneus SOFT TISSUES:Negative. No visible soft tissue swelling. EFFUSION:None visible. OTHER: Negative. IMPRESSION: Stable moderate degenerative changes Electronically authenticated by: TAMIKO NETTLES Date: 2022-02-10 07:37 [facility] 08-30-2021 Evaluation note Encounter Date Diagnosis Assessment Notes Aug, Contact with and (suspected) exposure to other viral communicable diseases (ICD-10 - Z20.828) Aug, Viral URI (ICD-10 - J06.9) Advised patient that rapid COVID antigen test and Influenza A/B test was negative today. Advised patient that will treat as viral URI. Supportive care as directed, increase fluids and rest, Tylenol/Motrin as directed, OTC cough/cold remedies as directed on packaging, cool mist humidifier, throat lozenges. Discussed infection control practices such as good hand washing and mask wearing. Patient to follow up with PCP if sx persist or worsen despite treatment. Immediate eval for SOB, difficulty, chest pain, fevers that do not break with antipyretic or any other concerning symptoms as reviewed on patient education handout. Patient verbalizes understanding and is agreeable to treatment plan. Patient left in stable condition Aug, Other Additional time spent conducting pre-visit phone call, screening for symptoms, instructions on social distancing, application and removal of PPE, and cleaning of examination room, equipment and supplies was preformed. Patient education given for testing methodology and results. Patient care instructions given in writting by [facility] Care At Home document [employer] Other History general Narrative - Reported* Type Description Date Medical History anxiety Medical History GERD [facility] Other Hospital course Narrative No data available for this section [facility] Discharge instructions No data available for this section [facility] Progress note No data available for this section General [facility] Summary Purpose Family History No Family History Records FoundNo Family History Records FoundNo Family History Records Found No data available for this section No Family History Records FoundNo Family History Records Found Advance Directives No Advanced Directives Records FoundNo Advanced Directives Records FoundNo Advanced Directives Records FoundNo Advanced Directives Records FoundNo Advanced Directives Records Found Additional Source Comments INFORMATION SOURCE (unrecogn ized section and content) DATE CREATED AUTHOR 11/16/2018 [facility] DATE CREATED AUTHOR AUTHOR'S ORGANIZ ATION 06/05/2022 [facility] DATE CREATED AUTHOR AUTHOR'S ORGANIZ ATION 04/09/2023 [facility] DATE CREATED AUTHOR AUTHOR'S ORGANIZ ATION 06/28/2023 [facility] DATE CREATED AUTHOR AUTHOR'S ORGANIZ ATION 07/06/2023 [facility] EPIC REASON FOR VISIT (unrecogniz ed section and content) #11 SILVER HERNANDEZ EDGE, RUNNY NOSE, SORE THROAT, COUGH, B/A, FATIGUE Patient Care team informatio n (unrecognized section and content) Personnel Name: SHAIKH MAIN MD Address: Address: [address] [place] [address] FOR RECORDS PERTAINING TO PATIENTS WHO ARE OR HAVE BEEN ENROLLED IN A CHEMICAL DEPENDENCY/SUBSTANCEABUSE PROGRAM, SOME INFORMATION MAY BE OMITTED. This clinical summary was aggregated from multiple sources. Caution should be exercised in using it in the provision of clinical care. This summary normalizes information from multiple sources, and as a consequence, information in this document may materially change the coding, format and clinical context of patient data. In addition, data may be omitted in some cases. CLINICAL DECISIONS SHOULD BE BASED ON THE PRIMARY CLINICAL RECORDS. [facility]. provides no warranty or guarantee of the accuracy or completeness of information in this document.
== END 2023-07-12 09:24 | disposition home or self-care (01) ==
LOC: PST 09:23
PROVIDERS: PCP Internal Medicine; Visit Provider Surgery
DX: Z01.818 Encounter for other preprocedural examination (principal); D50.9 Iron deficiency anemia, unspecified

== ENCOUNTER 2023-07-19 08:35 | Day surgery (SDC) | payer OTHER, SELFPAY ==
--- NOTE | 2023-07-19 | OP_ITS ---
OPERATION DATE: 07/19/2023 PREOPERATIVE DIAGNOSIS: Severe anemia, iron deficiency and B12 deficiency. POSTOPERATIVE DIAGNOSIS: Redundant colon with sigmoid diverticulosis. PROCEDURE: Colonoscopy to cecum. SURGEON: Segun Duarte M.D. ANESTHESIA: Monitored anesthesia care. ESTIMATED BLOOD LOSS: Zero. INDICATIONS AND CONSENT: Patient is a 53-year-old female with history of severe anemia requiring transfusions. She was found to have iron deficiency anemia as well as B12 deficiency. She did have a previous EGD that was reportedly normal, now presents for colonoscopy. Indications, risks, benefits, alternatives of proceeding with colonoscopy were explained extensively to the patient, including the risks of bleeding, colon perforation or anesthetic complications. All of her questions were answered. Informed consent was obtained. PROCEDURE: Patient brought to the operating room, placed in the left lateral decubitus position. Monitored anesthesia care was provided. Rectal exam was performed which showed no masses or blood. The scope was inserted into the anal canal. Under direct visualization was advanced. With the aid of abdominal compression and positional changes, it was advanced to the cecum where cecal markings were clearly identified. There was noted to be redundant colon with spasm. There was a good prep. Upon withdrawal of the scope, mucosal surfaces were carefully examined. There were no mass lesions or polyps. No inflammatory changes or ulcerations. There was moderate sigmoid diverticulosis without inflammatory changes or scarring. The scope was retroflexed in the anal canal. There was no significant hemorrhoidal disease. Scope was then withdrawn. Patient tolerated procedure well, was sent to recovery room in good condition.f/u screening colonoscopy in 10 years CC: Dr. Etelvina BOONE
[2023-07-19 08:45] VITALS: BP 109/65; PULSE 74; RESP 16; TEMP 35.9; O2SAT 97; BMI 35.6
[2023-07-19] MEDS: LACTATED RINGER'S SOLUTION 1,000 ML 50 ML IV (09:02)
[2023-07-19 11:22] VITALS: BP 104/50; PULSE 69; RESP 12; O2SAT 97
[2023-07-19 11:37] VITALS: BP 112/63; PULSE 62; RESP 16; O2SAT 97
[2023-07-19 11:52] VITALS: BP 136/71; PULSE 71; RESP 16; O2SAT 100
== END 2023-07-19 11:52 | disposition home or self-care (01) ==
PROVIDERS: PCP Internal Medicine; Visit Provider Surgery
PROC: (CPT 811; principal; 2023-07-19 09:45)
DX: D50.9 Iron deficiency anemia, unspecified (principal); D51.9 Vitamin B12 deficiency anemia, unspecified; K57.32 Diverticulitis of large intestine without perforation or abscess without bleeding; Q43.8 Other specified congenital malformations of intestine; F41.9 Anxiety disorder, unspecified; F31.9 Bipolar disorder, unspecified; M79.7 Fibromyalgia; K21.9 Gastro-esophageal reflux disease without esophagitis; Z98.84 Bariatric surgery status; E66.9 Obesity, unspecified; I73.9 Peripheral vascular disease, unspecified; Z90.49 Acquired absence of other specified parts of digestive tract; Z98.51 Tubal ligation status; F17.210 Nicotine dependence, cigarettes, uncomplicated; Z68.37 Body mass index [BMI] 37.0-37.9, adult; Z68.36 Body mass index [BMI] 36.0-36.9, adult
CPT/HCPCS: 00811; 45378; J2704

== ENCOUNTER 2023-07-28 10:13 | Outpatient (OUT) | payer OTHER, SELFPAY ==
--- OUTSIDE RECORDS SUMMARY | 2023-07-28 10:21 | XMS_ITS | CCD ---
Author Name Unknown Address [address] [place] [address] Organization [facility] Care Team Providers Care Screen Cleaner Name Role Phone PHYSICIAN, DEFAULT Admitting Unavailable PHYSICIAN, DEFAULT Attending Unavailable TYLER, GRISELDA Primary Care Unavailable Kristin Quintana Unavailable MICHAEL DSOUZA Admitting Unavailable MICHAEL DSOUZA Attending Unavailable TYLER, DR VILLALOBOS Primary Care [...] MICHAEL Admitting Unavailable MEET, MICHAEL Consulting Unavailable GARRETANDER, TAWANA Dong Admitting Unavailable HIGHLANDER, TAWANA Dong Attending Unavailable TYLER, DR VILLALOBOS Primary Care Unavailable HIGHLANDER, TAWANA [...] Unavailable TYLER, DR VILLALOBOS Primary Care Unavailable MICHAEL DSOUZA Attending Unavailable MEET, MICHAEL Admitting Unavailable MEET, MICHAEL Consulting Unavailable TYLER, DR VILLALOBOS Admitting Unavailable HOUSE, DR VILLALOBOS Attending Unavailable HOUSE, DR VILLALOBOS Primary Care Unavailable HOUSE, DR VILLALOBOS Consulting Unavailable KRISTIN, TAWANA Dong Admitting Unavailable HIGHLSHAMIKA, TAWANA Dong Attending Unavailable TYLER, DR VILLALOBOS Primary Care Unavailable YOON, DR TAMIKO Dickens Consulting Unavailable HIGHLSHAMIKA, TAWANA Dong Consulting Unavailable HIGHLANDER, TAWANA Dong Admitting Unavailable HIGHLANDER, TAWANA Dong Attending Unavailable HOUSE, GRISELDA Primary Care Unavailable DR ELLIOT JOSE Consulting Unavailable TAWANA FOSTER Consulting Unavailable RONEN BERG Attending Unavailable RONEN BERG Attending Unavailable SHAIKH MAIN Primary Care Physician SHAIKH MAIN Attending Unavailable Segun HOLLOWAY Attending Unavailable Segun HOLLOWAY Attending Unavailable Allergies Allergy Classification Reported Allergen(s) Allergy Type Date of Onset Reaction(s) Facility (1 source) penciclovir Drug Allergy [employer] Other (4 sources) Penicillins; Translations: [PENICILLINS] Drug allergy (disorder) 04-18-2014 [facility] Rep[facility] Medications Current Medications Medication Drug Class(es) [...] 2 Chronic Other aftercare (1 source) 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 [facility] Lab Reportson 06-26-2023 Lab Reports [id number]#1.00TIFF [facility] Insurance Correspondenceon 1 08-09-2022 Insurance Correspondence [id number]#1.00TIFF [facility] Facesheeton 06-08-2023 Facesheet [id number]#1.00TIFF [facility] Physician Referralon 023 Physician Referral [id number]#1.00TIFF [facility] Ambulatory Visit Summaryon 1 08-07-2022 Ambulatory Visit Summary TALIA MERCADO :1970 Visit Date:06/07/2023 Ambulatory Visit Instructions Your [...] you for choosing us for your care. [facility] Lab Reportson 05-31-2023 Lab Reports [id number]#1.00TIFF [facility] Consultation Noteon 05-25-20 Consultation Note [id number]#1.00TIFF [facility] Consultation Noteon 05-24-20 Consultation Note [id number]#1.00TIFF [facility] Lab Reportson 05-24-2023 Lab Reports [id number]#1.00TIFF [facility] Operative Reporton 3 Operative Report [id number]#1.00TIFF [facility] Physician Referralon 023 Physician Referral [id number]#1.00TIFF [facility] Office Visiton 04-07-2023 Follow-up visit [id number] Norma Mercado 1970 F Date Provider Department Center 04/07/2023 [id number]-HXWWEHVOPRONEN SHAH Family History Problem Relation Age of Onset Brain Aneurysm Mother 80 Diabetes Mother Heart failure Father 80 Diabetes Father Hypertension Father Diabetes Sister Family Status - Relation Status Age at Mother Father Sister Level of Service:03074 MT OFFICE/OUTPATIENT ESTABLISHED MOD MDM 30-39 MIN Normal [facility] 36on 02-08-2023 36 [facility] lab called to re port critical HGB and hematocrit for patient: HGB was 5.1 and hematocrit is 18.9. I spoke with Talia and advised she go to the ED. She verbalized understanding and will do so. Normal [facility] Office Visiton 02-08-2023 Follow-up visit [id number] Norma Mercado 1970 F Date Provider Department Center 02/08/2023 RONEN MOYA Family History Problem Relation Age of Onset Brain Aneurysm Mother 80 Diabetes Mother Heart failure Father 80 Diabetes Father Hypertension Father Diabetes Sister Family Status - Relation Status Age at Mother Father Sister Level of Service:04772 MT OFFICE/OUTPATIENT NEW MODERATE MDM 45-59 MINUTES Reason for Visit and Comments: Establish Care [42] - Swelling in both legs,right leg is itching and painful Shortness of Breath [502440] Dizziness [127034] Fatigue [46] Normal [facility] PREG HCG QUALon 03-10-2022 , QUAL Negative Normal NEGATIVE [facility] Comment on above: Performed By: #### P REG ####[facility] [address] [address]Dr. Moni Johnson Covid-19 PCR (CVDTB)on 02-21 SARS-CoV-2 (COVID-19) RNA EMMANUEL+probe Ql (Unsp spec) Not detected Normal NOT DETECTED [facility] Comment on above: Result Comment: This test is not yet approved or cleared by the [place] FDA. When there are no FDA-approved or cleared tests available, and other criteria are met, FDA can make tests available under an emergency access mechanism called an Emergency Use Authorization (EUA). The EUA for this test is supported by the [place] Worker of Health and Human Service's (HHS's) declaration [...] consistent with SARS-CoV-2. Performed By: #### C VDTBH #### [facility] Laboratory [address] [address] [address] Moni Johnson PROF CHEM 8 (BAS METB)on Anion gap [Moles/Vol] 9.0 mmol/L Normal [facility] Comment on above: Performed By: #### B MP ####[facility] [address] [address]11DrConsuelo Johnson Calcium [Mass/Vol] 8.3 mg/dL Critically low 8.5-10.[address] [facility] Comment on above: Performed By: #### B MP ####[facility] [address] [address]11DrConsuelo Jhonson Chloride [Moles/Vol] 106 mmol/L Normal 98-107 [facility] Comment on above: Performed By: #### B MP ####[facility] [address] [address]Dr. Moni Johnson CO2 [Moles/Vol] 29.2 mmol/L Normal 21.0-32.0 [facility] Comment on above: Performed By: #### B MP ####[facility] [address] [address]Dr. Moni Johnson Creatinine [Mass/Vol] 0.78 mg/dL Normal 0.55-1.02 [facility] Comment on above: Performed By: #### B MP ####[facility] [address] [address]Dr. Moni Johnson EGFR-AF MONTSERRATIAN >60 Normal >=60 [facility] Comment on above: Performed By: #### B MP ####[facility] [address] [place], [place] [address]Dr. Moni Johnson EGFR-NON AF MONTSERRATIAN >60 Normal >=60 [facility] Comment on above: Performed By: #### B MP ####[facility] [address] [place], [place] [address]Dr. Moni Johnson Glucose [Mass/Vol] 88 mg/dL Normal 74-106 [facility] Comment on above: Performed By: #### B MP ####[facility] [address] [place], [place] [address]Dr. Moni Johnson Potassium [Moles/Vol] 4.2 mmol/L Normal 3.5-5.1 [facility] Comment on above: Performed By: #### B MP ####[facility] [address] [place], [place] [address]Dr. Moni Johnson Sodium [Moles/Vol] 140 mmol/L Normal 136-145 [facility] Comment on above: Performed By: #### B MP ####[facility] [address] [place], [place] [address]Dr. Moni Johnson Urea nitrogen [Mass/Vol] 21.0 mg/dL Critically high 7.0-18.0 [facility] Comment on above: Performed By: #### B MP ####[facility] [address] [place], [place] [address]Dr. Moni Johnson Urea nitrogen/Creatinin e [Mass ratio] 26.9 mg/mg Normal [facility] Comment on above: Performed By: #### B ####[facility] [address] [place], [place] [address] FOOT LT WO CONon [...] ELLIOT JOSE Date: 2022-02-22 18:32 Normal [facility] COVID Quick Testingon 2021 Result Negative [employer] Other Quick Fluon 08-30-2021 FLUAV Ab CF (S) [Titer] Negative [employer] Other FLUBV Ab CF (S) [Titer] Negative [employer] Other [facility]-24 SARS-CoV-2 (COVID-19) RNA EMMANUEL+probe Ql (Unsp spec) Not detected Normal NOT DETECTED [facility] Comment on above: Result Comment: This test is not yet approved or cleared by the [place] FDA. When there are no FDA-approved or cleared tests available, and other criteria are met, FDA can make tests available under an emergency access mechanism called an Emergency Use Authorization (EUA). The EUA for this test is supported by the [place] of Health and Human Service's (HHS's) declaration [...] consistent with SARS-CoV-2. Performed By: #### C [facility] #### [facility] [address] [place] [address] Dr. Moni Johnson Vital Signs Date Time Vital Sign Value Performing Clinician Facility 06-07-2023 16:03-0500 Blood Pressure Location [facility] 06-07-2023 16:03-0500 Diastolic blood pressure 88 mm[Hg] [facility] 06-07-2023 16:03-0500 Heart rate 72 /min [facility] 06-07-2023 16:03-0500 Respiratory rate 16 /min [facility] 06-07-2023 16:03-0500 Systolic blood pressure 130 mm[Hg] [facility] 08-30-2021 13:00-0500 Body height 165.1 cm Kristin Quintana Other [employer] Other 08-30-2021 13:00-0500 Body mass index (BMI) [Ratio] 30.95 kg/m2 Kristin Ginty Other [employer] Other 08-30-2021 13:00-0500 Body temperature 98 [degF] Kristin Ginty Other [employer] Other 08-30-2021 13:00-0500 Body weight 84.37 kg Kristin Ginty Other [employer] Other 08-30-2021 13:00-0500 Respiratory rate 16 /min Kristin Ginty Other [employer] Other 08-30-2021 13:00-0500 SaO2% (BldA) [Mass fraction] 98 % Kristin Ginty Other [employer] Other Encounters Encounter Date Encounter Type Care Provider Facility Start: 07-19-2023 End: 07-20-2023 ambulatory Segun HOLLOWAY Facility:CD:[id number] Start: 07-04-2023 End: 07-04-2023 ambulatory EFREM Not Available Start: 06-07-2023 End: 06-08-2023 ambulatory Segun R NILL Facility:[facility] Start: 06-07-2023 End: 06-07-2023 Patient encounter procedure Segun HOLLOWAY General Surgery Nill/Said [facility]helia Start: 06-05-2023 ambulatory Segun HOLLOWAY Facility:[facility] Start: 05-18-2023 ambulatory Segun HOLLOWAY Facility:[facility] Start: 04-07-2023 End: 04-07-2023 ambulatory [facility] Start: 02-08-2023 ambulatory [facility] Start: 05-31-2022 End: 06-01-[address] TAMIKO NETTLES Facility:[facility] Start: 05-10-2022 End: 05-11-[address] ELLIOT JOSE Facility:[facility] Start: 04-19-2022 End: 04-20-2022 ambulatory MICHAEL DSOUZA Facility:[facility] Start: 03-29-2022 End: 03-30-2022 ambulatory MICHAEL DSOUZA Facility:[facility] Start: 03-10-2022 End: 03-10-2022 ambulatory TAWANA FOSTER Facility:[facility] Start: 03-07-2022 Encounter for preprocedural cardiovascular examination TAWANA Dong [facility] Start: 03-07-2022 Encounter for preprocedural laboratory examination TAWANA Dong [facility] Start: 03-03-2022 End: 03-04-2022 ambulatory TAWANA FOSTER Facility:[facility] Start: 03-03-2022 End: 03-04-2022 Encounter for preprocedural laboratory examination [facility] Start: 02-22-2022 End: 02-23-2022 [facility] Start: 02-09-2022 End: 02-10-2022 ambulatory [facility] Start: 08-30-2021 End: 08-30-2021 ambulatory Kristin Quintana Other [employer] Other Start: 08-30-2021 Office outpatient vi sit 15 minutes Kristin Quintana [facility] Start: 06-07-2021 End: 06-07-[address] GRISELDA SCOTT Facility:[facility] Start: 11-14-2018 End: 11-15-2018 Patient encounter procedure DEFAULT PHYSICIAN Facility:[facility] Procedures Date Procedure Procedure Detail Performing Clinician Start: 02-09-2023 Esophagogastroduodenoscopy Segun HOLLOWAY Start: 07-24-2019 Bypass of stomach Wagner indra NILL Start: 07-24-2018 Transurethral cystoscopy Segun NILL Start: 07-24-2017 Transurethral cystoscopy Segun NILL Cholecystectomy Segun NILL Ligation of fallopian tube Lashaun susan NILL Repair of cystocele Segun WILLARDL Immunizations Immunization Date Immunization Notes Care Provider Fa cility NEGATED: Highlighted row has not occurred!06-07-2023 influenza virus vaccine, unspecified formulation Segun AMIE General Surgery [place] Payers Date Payer Category Payer Unknown [id number] 2.16.8 [id number] 1970 Unknown [id number] 2.16.84 [id number] 1970 Unknown [id number] 2.16.84 [id number] 1970 Unknown [id number] 2.16.84 0.1.815248.3.579.2.593 1970 Unknown [id number] 2.16.84 0.1.892269.3.579.2.593 1970 Unknown [id number] 2.16.84 0.1.214902.3.579.2.593 1970 Unknown [id number] 2.16.84 0.1.998399.3.579.2.593 1970 Unknown [id number] 2.16.84 0.1.491782.3.579.2.593 1970 Unknown [id number] 2.16.84 0.1.708031.3.579.2.593 1970 Unknown [id number] 2.16.84 0.1.367328.3.579.2.593 1970 Unknown [id number] 2.16.840 .1.460302.3.579.2.1259 1970 Unknown [id number] 2.16.8 40.1.838644.3.579.2.727 1970 Unknown [id number] 2.16.8 40.1.806856.3.579.2.727 1970 Unknown [id number] 2.16.8 40.1.985772.3.579.2.727 1970 Unknown [id number] 2.16.8 40.1.287445.3.579.2.727 1958 Private Health Insurance [id number] Unknown Social History Date Type Detail Facility Unknown if ever smoked [employer] Other Sex Assigned [facility] Start: 06-07-2023 Tobacco smoking status Heavy tobacco smoker (finding) General Surgery Fredrick Tobacco smoking status Former smokeless tobacco user, quit more than 30 days ago General Surgery [place]helia Functional Status Date Assessment Result Facility 06-07-2023 Functional Status N/A General [facility] Clinical Notes 08-30-2021 to 06-07-2023 Note Date [...] fibromyalgia, referred for severe anemia, admitted to [facility] in January with hb of 5; received [...] 30 mg= (more content not included)... [facility] Comment on above: Result Comment: Elec tronically Signed By: AMIE WELLER, Segun Graham\Date and Time Signed: 06/07/23 17:17 EST 06-07-2023 Evaluation + Plan note Diagnostic Tests PendingIron Level 06/07/23Ferritin 06/07/23Vitamin B12 Level 06/07/23 General Surgery Fredrick 04-07-2023 Note Cardiology Clinic No te Sarai Talia Mercado is a 53 y.o. year [...] -Resolved, likely exacerbated (more content not included)... [facility] 04-07-2023 Note Patient here for 2 [...] All other systems reviewed and are negative. [facility] 02-08-2023 Note Cardiovascular Medic [facility] SUBJECTIVE Chief Complaint Patient presents with [...] about 6 weeks (around 03/22/2023). Ronen Berg APRN-REVIT [facility]RAF[facility] Cardiovascular Medicine [facility] 05-31-2022 Note PROCEDURE: XR FOOT L [...] authenticated by: TAMIKO NETTLES Date: 2022-05-31 20:30 [facility] 05-11-2022 Note PROCEDURE: XR FOOT L [...] authenticated by: ELLIOT JOSE Date: 2022-05-11 16:14 [facility] 04-19-2022 Note PROCEDURE: XR FOOT L [...] authenticated by: TAMIKO NETTLES Date: 2022-04-19 18:16 [facility] 03-30-2022 Note PROCEDURE: XR FOOT L T MIN 3 VIEWS COMPARISON: 03/10/2022 HISTORY: Pain in left foot FINDINGS: BONES:Fusion of the second tarsometatarsal joint with a dorsal plate and screws. Single screw across the third tarsometatarsal joint. Bone fragment along the proximal navicular, remote injury favored. Moderate plantar enthesopathic spurring of the calcaneus SOFT TISSUES:Dorsal foot soft tissue swelling with surgical skin kenyetta EFFUSION:None visible. OTHER: Negative. IMPRESSION: Stable fusion of the second and third tarsometatarsal joints Electronically authenticated by: TAMIKO NETTLES Date: 2022-03-30 06:41 [facility] 03-11-2022 Note PROCEDURE: XR FOOT L [...] authenticated by: ELLIOT JOSE Date: 2022-03-11 08:26 [facility] 03-11-2022 Note PROCEDURE: XR FOOT L T 2V HISTORY: Pain COMPARISON: XR foot left 02/09/2022 FINDINGS: BONES:Multiple intraoperative images demonstrate mechanical fusion of the second and third tarsal-metatarsal joints. SOFT TISSUES:Expected intraoperative findings. EFFUSION:None visible. OTHER: Negative. IMPRESSION: 1. Mechanical fusion of second and third tarsal-metatarsal joints. Electronically authenticated by: ELLIOT JOSE Date: 2022-03-11 07:55 [facility] 02-10-2022 Note PROCEDURE: XR FOOT L T MIN 3 VIEWS COMPARISON: 12/15/2020 HISTORY: Pain FINDINGS: BONES:No acute fracture or dislocation. Stable moderate degenerative changes most significant at the tarsometatarsal joints. Moderate plantar enthesopathic spurring of the calcaneus SOFT TISSUES:Negative. No visible soft tissue swelling. EFFUSION:None visible. OTHER: Negative. IMPRESSION: Stable moderate degenerative changes Electronically authenticated by: TAMIKO NETTLES Date: 2022-02-10 07:37 [facility] 08-30-2021 Evaluation note Encounter Date Diagnosis Assessment [...] Patient care instructions given in writting by [facility] Care At Home document [employer] Other History general Narrative - Reported* Type Description Date Medical History anxiety Medical History GERD [employer] Other Hospital course Narrative No data available for this section General Surgery [facility] Discharge instructions No data available for this section General Surgery [facility] Progress note No data available for this section General Surgery [place]hel[facility] Summary Purpose Family History No Family History [...] and content) DATE CREATED AUTHOR 11/16/2018 [facility] DATE CREATED AUTHOR AUTHOR'S ORGANIZ ATION 06/05/2022 [facility] DATE CREATED AUTHOR AUTHOR'S ORGANIZ ATION 04/09/2023 [facility] DATE CREATED AUTHOR AUTHOR'S ORGANIZ ATION 07/06/2023 [facility] DATE CREATED AUTHOR AUTHOR'S ORGANIZ ATION 07/25/2023 [facility] REASON FOR VISIT (unrecogniz ed section and content) #11 SILVER HERNANDEZ EDGE, RUNNY NOSE, SORE THROAT, COUGH, B/A, FATIGUE Patient Care team informatio n (unrecognized section and content) Personnel Name: EFREM WELLER [facility] Address: Address: [address] [place] [id number] FOR RECORDS PERTAINING TO PATIENTS WHO ARE [...] BE BASED ON THE PRIMARY CLINICAL RECORDS. [facility]. provides no warranty or guarantee of the accuracy or completeness of information in this document.
[2023-07-28 10:34] LABS: Erythrocyte Sedimentation Rate 33 mm/hr (<=30)
[2023-07-28 13:31] LABS: TSH W/ REFLEX FT4 2.124 uIU/mL (0.358-3.740)
[2023-07-28 14:14] LABS: C Reactive Protein <0.50 mg/dL (<=0.50)
[2023-07-29 05:11] LABS: Complement C3, Serum 131 mg/dL (82-167); Complement C4, Serum 26 mg/dL (12-38)
[2023-07-29 06:11] LABS: Rheumatoid Factor (RF) <10.0 IU/mL (<14.0)
[2023-07-29 14:58] LABS: Anti-CCP Ab, IgG/IgA 8 units (0-19)
[2023-07-31 17:09] LABS: Antinuclear Antibodies, IFA Negative (.)
== END 2023-07-28 10:14 | disposition home or self-care (01) ==
LOC: LAB 10:14
PROVIDERS: PCP Internal Medicine; Visit Provider Internal Medicine
DX: M79.7 Fibromyalgia (principal)
CPT/HCPCS: 36415; 84443; 85652; 86038; 86140; 86160; 86200; 86430; 86431

== ENCOUNTER 2023-08-31 07:29 | Outpatient (RCR) | payer OTHER, SELFPAY ==
[2023-08-24] MEDS: IRON SUCROSE COMPLEX 200 MG in 0.9 % SODIUM CHLORIDE 100 ML 220 MG IV (15:42)
[2023-08-24 15:46] VITALS: BP 137/84; PULSE 84; RESP 16; TEMP 36.7; O2SAT 94
--- NOTE | 2023-08-24 16:21 | PC.NURSE ---
1615 infusion completed, flushed line with ns, IV dc'd catheter intact, site clear, cotton ball and coban applied, instructed to removed dresssing after 15 - 20 mins, verbalizes understanding. Denies any symptoms after infusion, released ambulatory
[2023-08-31] MEDS: IRON SUCROSE COMPLEX 200 MG in 0.9 % SODIUM CHLORIDE 100 ML 220 MG IV (15:28)
[2023-08-31 15:29] VITALS: BP 131/82; PULSE 77; RESP 18; TEMP 36.6; O2SAT 94
--- NOTE | 2023-08-31 16:09 | PC.NURSE ---
1600 infusion completed, iv dc'd, cottonball applied. released ambulatory
== END 2023-09-21 23:59 | disposition home or self-care (01) ==
LOC: INF 07:29
PROVIDERS: PCP Internal Medicine; Visit Provider Internal Medicine
DX: D50.9 Iron deficiency anemia, unspecified (principal)
CPT/HCPCS: 96365; J1756

== ENCOUNTER 2023-11-17 16:43 | Outpatient (OUT) | payer OTHER, SELFPAY ==
--- OUTSIDE RECORDS SUMMARY | 2023-11-17 16:49 | XMS_ITS | CCD ---
Author Organization [facility] Care Team Providers Care Neon Sign Worker Name Role Phone PHYSICIAN, DEFAULT Admitting Unavailable PHYSICIAN, DEFAULT Attending Unavailable TYLER, GRISELDA Primary Care Unavailable Armandojaye Kristin Unavailable MICHAEL DSOUZA Admitting Unavailable MEET, MICHAEL [...] Unavailable DAMON, DR ELLIOT Denis Consulting Unavailable KRISTIN, TAWANA Dong Consulting Unavailable AGUBOSIM, EYAL Consulting Unavailable LYDIA ., ANITA LUU Consulting Unavailable NARINDER, REBECCA Consulting Unavailable YOON, DR TAMIKO Dickens Consulting Unavailable TYLER, DR VILLALOBOS Primary Care Unavailable MEET, MICHAEL Attending Unavailable MEET, MICHAEL Admitting Unavailable MEET, MICHAEL Consulting Unavailable TYLER, DR VILLALOBOS Admitting Unavailable HOUSE, DR VILLALOBOS Attending Unavailable HOUSE, DR VILLALOBOS Primary Care Unavailable DAYTON, DR VILLALOBOS Consulting Unavailable KRISTIN, TAWANA Dong Admitting Unavailable HIGHLANDER, TAWANA Dong Attending Unavailable HOUSE, DR VILLALOBOS Primary Care Unavailable WEST, DR TAMIKO Dickens Consulting Unavailable HIGHLSHAMIKA, TAWANA Dong Consulting Unavailable HIGHLANDER, TAWANA Dong Admitting Unavailable HIGHLANDER, TAWANA Dong Attending Unavailable HOUSE, DR VILLALOBOS Primary Care Unavailable DR ELLIOT JOSE Consulting Unavailable TAWANA FOSTER Consulting Unavailable RONEN BERG Attending Unavailable RONEN BERG Attending Unavailable SHAIKH MAIN Primary Care Physician [phone] Segun HOLLOWAY Attending Unavailable Segun HOLLOWAY Attending Unavailable Shaikh Main MD Primary Care Provider SHAIKH MAIN Attending Unavailable SHAIKH MAIN Attending Unavailable SHAIKH MAIN Attending Unavailable SHAIKH MAIN Attending Unavailable Allergies Allergy Classification Reported Allergen(s) Allergy Type Date of Onset Reaction(s) Facility (1 source) penciclovir Drug Allergy oohilove Other (4 sources) Penicillins; Translations: [PENICILLINS] Drug allergy (disorder) 4 Hives [facility] Repository (1 source) Penicillin G Drug Allergy 3 Unknown [facility] Healthcare (1 source) Penicillins Propensity to adverse reactions 3 [facility] Healthcare Medications Current Medications Medication Drug Class(es) Dates Sig (Normalized) Sig (Original) ARIPiprazole 10 mg oral tablet (2 sources) Atypical Antipsychotic Start: 05-24-2023 take 1 tablet by mouth once daily aripiprazole 10 mg Tab 10 mg = 1 tab(s), Oral, Daily, Refills(s) 0 Start Date: 05/24/23 Status: Ordered ARIPiprazole Act ada citalopram 40 mg oral tablet (3 sources) Serotonin Reuptake Inhibitor Start: 08-14-2023 End: 11-26-2023 take 1 tablet by mouth in the morning citalopram (CeleXA) 40 MG tablet Indications: Bipolar disorder with severe depression (CMS/HCC) Take 1 tablet (40 mg) by mouth in the morning. 90 tablet 0 08/28/2023 11/26/2023 Active Citalopram [place] bromide Active Cymbalta 30 mg Cap-DR (1 source) Start: 05-24-2023 take 1 capsule by mouth once daily Cymbalta 30 mg Cap-DR = 1 cap(s), Oral, Daily, Refills(s) 0 Start Date: 05/24/23 Status: Ordered DULoxetine 60 mg delayed release oral capsule (1 source) Serotonin and Norepinephrine Reuptake Inhibitor Start: 07-03-2023 End: 10-01-2023 take 1 capsule by mouth in the morning DULoxetine (Cymbalta) [address] capsule Indications: Fibromyalgia Take 1 capsule (60 mg) by mouth in the morning. 30 capsule 2 07/03/2023 10/01/2023 Active ferrous sulfate 325 mg oral tablet (2 sources) Start: 04-13-2023 take 1 tablet by mouth once daily ferrous sulfate 325 mg Tab 325 mg = 1 tab(s), Oral, Daily, Refills(s) 0 Start Date: 05/24/23 Status: Ordered fexofenadine (2 sources) Histamine-1 Receptor Antagonist Start: 06-07-2023 take 1 tablet by mouth once daily Layla D OTC 24HR 1 tab(s), Oral, Daily, Refill(s) 0 Start Date: 06/07/23 Status: Ordered take 1 tablet by mouth in the mo rning fexofenadine (Layla Allergy) 180 MG tablet Take 180 mg by mouth in the morning. 0 Active fluconazole 150 mg oral tablet (1 source) Azole Antifungal Start: 08-14-2023 End: 08-28-2023 take 1 tablet by mouth every week fluconazole (Diflucan) 150 MG tablet Indications: Antibiotic-induced yeast infection Take 1 tablet (150 mg) by mouth 1 (one) time per week for 14 days 2 tablet 0 08/14/2023 08/28/2023 Active lansoprazole 30 mg delayed release oral capsule (3 sources) Proton Pump Inhibitor Start: 05-24-2023 take 1 capsule by mouth once daily lansoprazole 30 mg Cap-DR 30 mg = 1 cap(s), Oral, Daily, Refills(s) 0 Start Date: 05/24/23 Status: Ordered Lansoprazole Act ada meloxicam (1 source) Nonsteroidal Anti-inflammatory Drug Meloxicam Active 24 hr oxybutynin chloride 10 mg extended release oral tablet (1 source) Cholinergic Muscarinic Antagonist take 1 tablet by mouth every twenty-four hours in the morning oxybutynin XL (Ditropan XL) 10 MG 24 hr tablet Take 10 mg by mouth in the morning. 0 Active pregabalin (1 source) Pregabalin Activ e Syringe 22G X 3/4 3 ML misc (1 source) Start: 08-14-19 End: 09-13-19 24 Syringe 22G X 3/4 3 ML misc Indications: B12 deficiency 1 each every 7 (seven) days 4 each 0 08/14/2023 09/13/2023 Active 24 hr tolterodine tartrate 4 mg extended release oral capsule (2 sources) Cholinergic Muscarinic Antagonist Start: 05-24-20 take 1 capsule by mouth once daily Detrol LA 4 mg Cap-ER 4 mg = 1 cap(s), Oral, Daily, Refills(s) 0 Start Date: 05/24/23 Status: Ordered Tolterodine Tart rate ER Active vitamin b12 1 mg/ml injectable solution (2 sources) Vitamin B12 Start: 08-04-2023 inject 1000 ug by intramuscular injection every week, then inject 1000 ug by intramuscular injection every month Cyanocobalamin (B-12 Compliance Injection) 1000 MCG/ML kit Indications: B12 deficiency 1000 mcg injection IM injections once weekly for 4 weeks, then 1000 mcg IM injection once a month 6 kit 0 08/04/2023 Active Start: 07-04-2023 End: 10-02-2023 take 1 tablet by mouth in the morning cyanocobalamin (Vitamin B-12) 1000 MCG tablet Indications: B12 deficiency Take 1 tablet (1,000 mcg) by mouth in the morning. 30 tablet 2 07/04/2023 10/02/2023 Active zolpidem tartrate 10 mg oral tablet (1 source) gamma-Aminobutyric Acid-ergic Agonist Start: 07-04-2023 End: 10-02-2023 zolpidem (Ambien) 10 MG tablet Indications: Psychophysiological insomnia Take 1 tablet (10 mg) by mouth as needed at bedtime for sleep 30 tablet 2 07/04/2023 10/02/2023 Active Problems Active Problems Problem Classification Problem Date Documented Da te Episodic/Chronic Anxiety disorders (1 source) Anxiety 05-24-2023 Chronic Cardiac dysrhythmias (2 sources) Palpitations; Translations: [Palpitations] Onset: 3 Episodic Deficiency and other anemia (3 sources) Iron deficiency anemia; Translations: [Iron deficiency anemia, unspecified] Onset: 3 Episodic Esophageal disorders (2 sources) Gastroesophageal reflux disease; Translations: [Gastro-esophageal reflux disease without esophagitis] Onset: 3 05-24-2023 Chronic Menstrual disorders (1 source) Menorrhagia; Translations: [Excessive and frequent menstruation with regular cycle] Onset: 3 06-30-2023 Chronic Miscellaneous mental health disorders (1 source) Psychophysiologic insomnia; Translations: [Psychophysiologic insomnia] Onset: 3 07-04-2023 Chronic Mood disorders (3 sources) Bipolar disorder; Translations: [Bipolar affective disorder, current episode depression] Onset: 3 05-24-2023 Chronic Mycoses (1 source) Opportunistic mycosis; Translations: [Candidiasis, unspecified] Onset: 4 08-14-2023 Episodic Nutritional deficiencies (1 source) Cobalamin deficiency; Translations: [Deficiency of other specified B group vitamins] Onset: 3 07-04-2023 Episodic Osteoarthritis (5 sources) Primary osteoarthritis, left ankle and foot; Translations: [PRIMARY OSTEOARTHRITIS LT ANK FOOT] Onset: 2 Chronic Other acquired deformities (1 source) Contracture, left ankle; Translations: [CONTRACTURE LEFT ANKLE] Onset: 2 Chronic Other aftercare (1 source) Other mcfp (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; Translations: [OTH SHELTER CURRENT DRUG THERAPY] Onset: 2 Episodic Other connective tissue disease (4 sources) Pain in left foot; Translations: [PAIN IN LEFT FOOT] Onset: 2 Episodic Other connective tissue disease (2 sources) Fibromyalgia; Translations: [Fibromyalgia] Onset: 3 05-25-2023 Episodic Other connective tissue disease (1 source) Plantar fasciitis of right foot; Translations: [Plantar fascial fibromatosis] Onset: 3 06-30-2023 Episodic Other diseases of bladder and urethra (1 source) Overactive bladder 05-24-2023 Chronic Other gastrointestinal disorders (2 sources) Bariatric surgery status; Translations: [BARIATRIC SURGERY STATUS] Onset: 2 Episodic Other gastrointestinal disorders (1 source) History of bypass of stomach; Translations: [Bariatric surgery status] Onset: 4 08-04-2023 Episodic Other lower respiratory disease (2 sources) [...] conditions (not mental disorders or infectious disease) (3 sources) Abnormal electrocardiogram [ECG] [EKG]; Translations: [Patient encounter status] Onset: 3 Episodic Other upper respiratory infections (2 sources) Acute upper respiratory infection, unspecified; Translations: [Acute upper respiratory infection] Onset: 2 Resolved: 2 Episodic Peripheral and visceral atherosclerosis (2 sources) Peripheral vascular disease, unspecified; Translations: [Peripheral vascular disease] Onset: 2 05-24-2023 Chronic Prolapse of female genital organs (2 sources) Disorder of rectum; Translations: [Rectocele] Onset: 3 06-30-2023 Chronic Residual codes; unclassified (1 source) Acquired absence of other specified parts of digestive tract; Translations: [ACQ ABSENCE OTH PART DIGESTV TRACT] Onset: 2 Episodic Residual codes; unclassified (2 sources) Localized edema; Translations: [Localized edema] Onset: 3 Episodic Skin and subcutaneous tissue infections (1 source) Abscess of groin; Translations: [Cutaneous abscess of groin] Onset: 4 08-15-2023 Episodic Substance-related disorders (4 sources) Nicotine dependence, cigarettes, uncomplicated; Translations: [Nicotine dependence, unspecified, uncomplicated] Onset: 2 Chronic Unclassified (4 sources) CONTACT W/AND (SUSP) EXPOS COVID-19; Translations: [CONTACT W/AND (SUSP) EXPOS COVID-19] Onset: 1 Unclassified (1 source) 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 Unclassified (1 source) Patient on antidepressant monitoring plan Onset: 08-03-2023 Past or Other Problems Problem Classification Problem Date Documented Da te Episodic/Chronic Immunizations and screening for infectious disease (1 source) Contact with and (suspected) exposure to other viral communicable diseases Onset: 08-30-2021 Resolved: 08-30-2021 Episodic Mood disorders (1 source) Mood disorders Onset: 08-03-2023 08-03-2023 Other circulatory disease (1 source) Other specified symptoms and signs involving the circulatory and respiratory systems; Translations: [OTH SPEC SX SIGNS INVLV CIRC RS] Onset: 02-26-2022 Episodic Unclassified (1 source) CONTACT W/AND (SUSP) EXPOS COVID-19; Translations: [CONTACT W/AND (SUSP) EXPOS COVID-19] Onset: 06-07-2021 Results Test Name Value Interpretation Reference Range Facility Outside Colonoscopyon 2023 Outside Colonoscopy [id number]#1.00TIFF [facility] Reminderson 07-20-2023 Reminders - From: Machelle Arauz LPN To: N - Clinical; Sent: 07/20/2023 10:55:11 EST Show up: 06/19/2033 07:00:00 EST Subject: colonoscopy recall Due Date/Time: 07/19/2033 07:00:00 EST Reminder/Recall Patient due for screening colonoscopy 07/19/2033. [facility] Lab Reportson 06-26-2023 Lab Reports [id number]#1.00TIFF [facility] Insurance Correspondenceon 08-09-2022 Insurance Correspondence [id number]#1.00TIFF [facility] Facesheeton 06-08-2023 Facesheet [id number]#1.00TIFF [facility] Physician Referralon 023 Physician Referral [id number]#1.00TIFF Normal [facility] Ambulatory Visit Summaryon 1 08-07-2022 Ambulatory Visit [...] you for choosing us for your care. Normal [facility] Lab Reportson 05-31-2023 Lab Reports [id number]#1.00TIFF Normal [facility] Consultation Noteon 05-25-20 Consultation Note [id number]#1.00TIFF Normal [facility] Consultation Noteon 05-24-20 Consultation Note [id number]#1.00TIFF [facility] Lab Reportson 05-24-2023 Lab Reports [id number]#1.00TIFF Normal [facility] Operative Reporton Operative Report [id number]#1.00TIFF [facility] Physician Referralon 023 Physician Referral [id number]#1.00TIFF [facility] Office Visiton 04-07-2023 Follow-up visit [id number] Norma Mercado 1970 Date Provider Department Center 04/07/202309223-TDOHRCKNWRONEN SHAH CARD [facility] Family History Problem Relation Age of Onset Brain Aneurysm Mother 80 Diabetes Mother Heart failure Father 80 Diabetes Father Hypertension Father Diabetes Sister Family Status - Relation Status Age at Mother Father Sister Level of Service:69497 [place] OFFICE/OUTPATIENT ESTABLISHED MOD MDM 30-39 MIN Normal [facility] 36on 02-08-2023 36 [facility] lab called to re port critical HGB and hematocrit for patient: HGB was 5.1 and hematocrit is 18.9. I spoke with Talia and advised she go to the ED. She verbalized understanding and will do so. Normal [facility] Office Visiton 02-08-2023 Follow-up visit [id number] Norma Mercado 1970 Date Provider Department Center 02/08/2023 BATSHEVA MOYAMITH CARD [facility] Family History Problem Relation Age of Onset Brain Aneurysm Mother 80 Diabetes Mother Heart failure Father 80 Diabetes Father Hypertension Father Diabetes Sister Family Status - Relation Status Age at Mother Father Sister Level of Service:49194 [place] OFFICE/OUTPATIENT NEW MODERATE MDM 45-59 MINUTES Reason for Visit and Comments: Establish Care [42] - Swelling in both legs,right leg is itching and painful Shortness of Breath [092798] Dizziness [452405] Fatigue [46] Normal [facility] PREG HCG QUALon 03-10-2022 , QUAL Negative Normal NEGATIVE [facility] Comment on above: Performed By: #### P REG ####[facility] [address] [place], [place] [address]LtDr. Moni Johnson Covid-19 PCR (CVDTB)on 02-21 SARS-CoV-2 (COVID-19) RNA EMMANUEL+probe Ql (Unsp spec) Not detected Normal NOT DETECTED [facility] Comment on above: Result Comment: This test is not yet approved or cleared by the [place] FDA. When there are no FDA-approved or cleared tests available, and other criteria are met, FDA can make tests available under an emergency access mechanism called an Emergency Use Authorization (EUA). The EUA for this test is supported by the Managed Care Coordinator of Health and Human Service's (HHS's) declaration [...] SARS-CoV-2. Performed By: #### C VDTBH #### [facility] [address] [place], [place] [address] Dr. Moni Johnson PROF CHEM 8 (BAS METB)on Anion gap [Moles/Vol] 9.0 mmol/L Normal [facility] Comment on above: Performed By: #### B MP ####[facility] [address] [place] [address]Dr. Moni Johnson Calcium [Mass/Vol] 8.3 mg/dL Critically low 8.5-10.1 [facility] Comment on above: Performed By: #### B MP ####[facility] [address] [place] [address]Dr. Moni Johnson Chloride [Moles/Vol] 106 mmol/L Normal 98-107 [facility] Comment on above: Performed By: #### B MP ####[facility] [address] [place] [address]Dr. Moni Johnson CO2 [Moles/Vol] 29.2 mmol/L Normal 21.0-32.0 The [facility] Comment on above: Performed By: #### B MP ####[facility] [address] [place], [place] [address]Dr. Moni Johnson Creatinine [Mass/Vol] 0.78 mg/dL Normal 0.55-1.02 [facility] Comment on above: Performed By: #### B MP ####[facility] [address] [place], [place] [address]Dr. Moni Johnson EGFR-AF LAO >60 Normal >=60 [facility] Comment on above: Performed By: #### B MP ####[facility] [address] [place] [address]Dr. Moni Johnson EGFR-NON AF LAO >60 Normal >=60 [facility] Comment on above: Performed By: #### B MP ####[facility] [address] [place] [address]Dr. Moni Johnson Glucose [Mass/Vol] 88 mg/dL Normal 74-106 [facility] Comment on above: Performed By: #### B MP ####[facility] [address] [place] [address]Dr. Moni Johnson Potassium [Moles/Vol] 4.2 mmol/L Normal 3.5-5.1 [facility] Comment on above: Performed By: #### B MP ####[facility] [address] [place], [place] [address]Md. Moni Johnson Sodium [Moles/Vol] 140 mmol/L Normal 136-145 [facility] Comment on above: Performed By: #### B MP ####[facility] [address] [place], [place] [address]Ww. Moni Johnson Urea nitrogen [Mass/Vol] 21.0 mg/dL Critically high 7.0-18.0 [facility] Comment on above: Performed By: #### B MP ####[facility] [address] [place], [place] [address]Dk. Moni Johnson Urea nitrogen/Creatinin e [Mass ratio] 26.9 mg/mg Normal [facility] Comment on above: Performed By: #### B MP ####[facility] [address] [place], [place] [address]L[address]. Mon[address] CT FOOT LT WO CONon 02-23-[address] FOOT LT WO CON EXAMINATION: CT [...] by: ELLIOT JOSE Date: 2022-02-22 18:32 Normal [facility] COVID Quick Testingon 2021 Result Negative [facility] Other Quick Fluon 08-30-2021 FLUAV Ab CF (S) [Titer] Negative [facility] Other FLUBV Ab CF (S) [Titer] Negative [facility] Other Covid-19 PCR ([facility])on 05-24 SARS-CoV-2 (COVID-19) RNA EMMANUEL+probe Ql (Unsp spec) Not detected Normal NOT DETECTED [facility] Comment on above: Result Comment: This test is not yet approved or cleared by the [place] FDA. When there are no FDA-approved or cleared tests available, and other criteria are met, FDA can make tests available under an emergency access mechanism called an Emergency Use Authorization (EUA). The EUA for this test is supported by the Managed Care Coordinator of Health and Human Service's (HHS's) declaration [...] consistent with SARS-CoV-2. Performed By: #### C [facility] #### [facility] [address] [place] [address] Dr. Moni Johnson Vital Signs Date Time Vital Sign Value Performing Clinician Facility 06-07-2023 16:03-0500 Blood Pressure Location Segun [facility] 06-07-2023 16:03-0500 Diastolic blood pressure 88 mm[Hg] Segun [facility] 06-07-2023 16:03-0500 Heart rate 72 /min Segun WILLARD[facility] 06-07-2023 16:03-0500 Respiratory rate 16 /min Segun [facility] 06-07-2023 16:03-0500 Systolic blood pressure 130 mm[Hg] Segun HOLLOWAY General Surgery [facility] 08-30-2021 13:00-0500 Body height 165.1 cm Kristin Ginty Other [facility] Other 08-30-2021 13:00-0500 Body mass index (BMI) [Ratio] 30.95 kg/m2 Kristin Ginty Other [facility] Other 08-30-2021 13:00-0500 Body temperature 98 [degF] Kristin Ginty Other [facility] Other 08-30-2021 13:00-0500 Body weight 84.37 kg Kristin Ginty Other [facility] Other 08-30-2021 13:00-0500 Respiratory rate 16 /min Kristin Ginty Other [facility] Other 08-30-2021 13:00-0500 SaO2% (BldA) [Mass fraction] 98 % Kristin Ginty Other [facility] Other Encounters Encounter Date Encounter Type Care Provider Facility Start: 11-13-2023 End: 11-13-2023 ambulatory SHAIKH EFREM Not Available Start: 08-25-2023 Casey Main MD Work Phone: [facility] Comment on above: Bipolar disorder wit h severe depression (CMS/[facility]) Start: 08-14-2023 End: 08-14-2023 ambulatory SHAIKH EFREM Not Available Start: 08-03-2023 End: 08-03-2023 ambulatory SHAIKH EFREM Not Available Start: 07-19-2023 End: 07-20-2023 ambulatory Segun HOLLOWAY Facility:CD:[id number] Start: 07-04-2023 End: 07-04-2023 ambulatory SHAIKH EFREM Not Available Start: 06-07-2023 End: 06-08-2023 ambulatory Segun R MONTSEL Facility:[facility] Start: 06-07-2023 End: 06-07-2023 Patient encounter procedure Segun R NILL General Surgery Nill/Said [facility] Start: 06-05-2023 ambulatory Segun NILL Facility:[facility] [place] Start: 05-18-2023 ambulatory Segun WILLARDL Facility:[facility] [place] Start: 04-07-2023 End: 04-07-2023 ambulatory [facility] Start: 02-08-2023 ambulatory [facility] Start: 05-31-2022 End: 06-01-[address] TAMIKO NETTLES Facility:[facility] Start: 05-10-2022 End: 05-11-[address] ELLIOT JOSE Facility:[facility] Start: 04-19-2022 End: 04-20-2022 ambulatory MICHAEL DSOUZA Facility:[facility] Start: 03-29-2022 End: 03-30-2022 ambulatory MICHAEL DSOUZA Facility:[facility] Start: 03-10-2022 End: 03-10-2022 ambulatory TAWANA FOSTER Facility:[facility] Start: 03-07-2022 Encounter for preprocedural cardiovascular examination TAWANA FOSTER [facility] Start: 03-07-2022 Encounter for preprocedural laboratory examination TAWANA FOSTER [facility] Start: 03-03-2022 End: 03-04-2022 ambulatory TAWANA FOSTER Facility:[facility] Start: 03-03-2022 End: 03-04-2022 Encounter for preprocedural laboratory examination TAWANA FOSTER Facility:[facility] Start: 02-22-2022 End: 02-23-2022 ambulatory TAWANA FOSTER Facility:[facility] Start: 02-09-2022 End: 02-10-2022 ambulatory TAWANA FOSTER Facility:[facility] Start: 08-30-2021 End: 08-30-2021 ambulatory Kristin Quintana Other [facility] Other Start: 08-30-2021 Office outpatient vi sit 15 minutes Kristin Armandojaye [facility] Start: 06-07-2021 End: 06-07-[address] GRISELDA SCOTT Facility: Start: 11-14-2018 End: 11-15-2018 Patient encounter procedure DEFAULT PHYSICIAN Facility:[facility] Procedures Date Procedure Procedure Detail Performing Clinician Start: 07-19-2023 Colonoscopy Shaikh Sahil whitney MD Work Phone: Start: 02-09-2023 Esophagogastroduodenoscopy Segun NILL Start: 07-24-2019 Bypass of stomach Wagner el NILL Start: 07-24-2018 Transurethral cystoscopy Segun NILL Start: 07-24-2017 Transurethral cystoscopy Segun NILL Cholecystectomy Segun NILL Ligation of fallopian tube Lashaun davis NILL Repair of cystocele Segun NILL Plan of Treatment Date Care Activity Detail Author Start: 07-19-2033 Screening for malign ant neoplasm of colon [facility] Start: 11-13-2023 End: 11-13-2023 Patient encounter procedure 11/13/2023 4:45 PM EDT Office Visit [facility] [address] [place] [id number] Shaikh Main MD [address] [place] [address] [facility] Start: 03-24-2023 Influenza vaccination Influenza Vacc ine (#1) [facility] Start: 2011 Screening for malign ant neoplasm of breast Mammogram [facility] Start: 2001 Screening for malign ant neoplasm of cervix [facility] Start: 1992 Screening for malign ant neoplasm of cervix Pap Smear [facility] Start: 1971 Screening for malign ant neoplasm of colon [facility] Immunizations Immunization Date Immunization Notes Care Provider Fa cility NEGATED: Highlighted row has not occurred!06-07-2023 influenza virus vaccine, unspecified formulation Segun AMIE [facility] [place] Payers Date Payer Category Payer Managed Care HMO (unspecified) [employer] [id number] 2009-Present [address] [place] [address] O [id number] 1970 Unknown [id number] 1971 Unknown [id number] 1971 Unknown [id number] 2.16.840.1.665173.3.579.2 .593 1971 Unknown [id number] 2.16.840.1.231386.3.579.2 .593 1971 Unknown [id number] 2.16.840.1.599693.3.579.2 .593 1971 Unknown [id number] 2.16.840.1.106018.3.579.2 .593 1971 Unknown [id number] 2.16.840.1.624861.3.579.2 .593 1971 Unknown [id number] 2.16.840.1.922471.3.579.2 .593 1971 Unknown [id number] 2.16.840.1.184494.3.579.2 .593 1971 Unknown [id number] 2.16.840.1.045809.3.579.2 .593 1971 Unknown [id number] 2.16.840.1.184070.3.579.2 .727 1971 Unknown [id number] 2.16.840.1.503643.3.579.2 .727 1971 Unknown [id number] 2.16.840.1.894241.3.579.2 .727 1971 Unknown [id number] 2.16.840.1.491311.3.579.2 .727 1971 Unknown [id number] 2.16.840.1.377598.3.579.2 .9 1971 Unknown [id number] 2.16.840.1.286882.3.579.2 .9 1971 Unknown [id number] 2.16.840.1.849640.3.579.2 .9 1971 Unknown [id number] 2.16.840.1.913864.3.579.2 .9 1959 Private Health Insurance [id number] 2.16.840.1.506725.19 Unknown Social History Date Type Detail Facility Unknown if ever smoked [facility] Start: 08-03-2023 End: 08-07-2023 Sex Assigned At [facility] Start: 06-07-2023 Tobacco smoking status Heavy t obacco smoker (finding) [facility] Tobacco smoking status Former sm okeless tobacco user, quit more than 30 days ago [facility] Start: 07-24-[address] [facility] Smokes tobacco daily [facility] Start: 07-24-1985 History of tobacco use Cigarette Smo ker [facility] Start: 07-04-2023 End: 08-07-2023 Cigarettes smoked current (pack per day) - Reported 1 [facility] Start: 07-04-2023 Tobacco use and exposure Smokeless tobacco non-user [facility] Start: 08-14-2023 Alcohol intake Lifetime non-d florencio (finding) [facility] Within the last year , have you been afraid of your partner or ex-partner? No [facility] Are you now , , , , never or living with a partner? [facility] How often to you hav e a drink containing alcohol? Never [facility] Do you feel stress - tense, restless, nervous, or anxious, or unable to sleep at night because your mind is troubled all the time - these days [OSQ] To some extent [facility] (I/We) worried wheth er (my/our) food would run out before (I/we) got money to buy more. Never true [facility] Start: 07-04-2023 Tobacco Comment Thinking about quitting [facility] Start: 07-04-2023 Alcohol Comment caffeine: 3-4 cups per day [facility] Start: 1970 Sex Assigned At Not on file [facility] Goals Date Patient Goal Desired Activity /State Personal health goal Functional Status Date Assessment Result Facility 06-07-2023 Functional Status N/A [facility] Clinical Notes 08-30-2021 to 06-07-2023 Note Date [...] fibromyalgia, referred for severe anemia, admitted to [facility] in January with hb of 5; received [...] Cap-DR, 30 mg= (more content not included)... [facility] Comment on above: Result Comment: Elec tronically Signed By: AMIE WELLER, Segun Graham\Date and Time Signed: 06/07/23 17:17 EST 06-07-2023 Evaluation + Plan note Diagnostic Tests PendingIron Level 06/07/23Ferritin 06/07/23Vitamin B12 Level 06/07/23 [facility] 04-07-2023 Note Cardiology Clinic No te Subjective [...] -Resolved, likely exacerbated (more content not included)... [facility] 04-07-2023 Note Patient here for 2 [...] All other systems reviewed and are negative. [facility] 02-08-2023 Note Cardiovascular Medic ine [facility] SUBJECTIVE Chief Complaint Patient presents with [...] about 6 weeks (around 03/22/2023). Ronen Berg APRN-[facility] Cardiovascular Medicine [facility] 05-31-2022 Note PROCEDURE: XR FOOT L [...] authenticated by: TAMIKO NETTLES Date: 2022-05-31 20:30 [facility] 05-11-2022 Note PROCEDURE: XR FOOT L T [...] authenticated by: ELLIOT JOSE Date: 2022-05-11 16:14 [facility] 04-19-2022 Note PROCEDURE: XR FOOT L T [...] authenticated by: TAMIKO NETTLES Date: 2022-04-19 18:16 [facility] 03-30-2022 Note PROCEDURE: XR FOOT L T [...] authenticated by: TAMIKO NETTLES Date: 2022-03-30 06:41 [facility] 03-11-2022 Note PROCEDURE: XR FOOT L T [...] authenticated by: ELLIOT JOSE Date: 2022-03-11 08:26 [facility] 03-11-2022 Note PROCEDURE: XR FOOT L T 2V HISTORY: Pain COMPARISON: XR foot left 02/09/2022 FINDINGS: BONES:Multiple intraoperative images demonstrate mechanical fusion of the second and third tarsal-metatarsal joints. SOFT TISSUES:Expected intraoperative findings. EFFUSION:None visible. OTHER: Negative. IMPRESSION: 1. Mechanical fusion of second and third tarsal-metatarsal joints. Electronically authenticated by: ELLIOT JOSE Date: 2022-03-11 07:55 [facility] 02-10-2022 Note PROCEDURE: XR FOOT L T MIN 3 VIEWS COMPARISON: 12/15/2020 HISTORY: Pain FINDINGS: BONES:No acute fracture or dislocation. Stable moderate degenerative changes most significant at the tarsometatarsal joints. Moderate plantar enthesopathic spurring of the calcaneus SOFT TISSUES:Negative. No visible soft tissue swelling. EFFUSION:None visible. OTHER: Negative. IMPRESSION: Stable moderate degenerative changes Electronically authenticated by: TAMIKO NETTLES Date: 2022-02-10 07:37 [facility] 08-30-2021 Evaluation note Encounter Date Diagnosis Assessment [...] Patient care instructions given in writting by [facility] Care At Home document [facility] Evaluation note* Diagnosis Bipolar disorder with severe depression (CMS/HCC) [facility] - [facility]* Type Description Date Medical History anxiety Medical History GERD [facility] Other Hospital course Narrative No data available for this section [facility] Discharge instructions No data available for this section [facility] [place] Progress note No data available for this [...] and content) DATE CREATED AUTHOR 11/16/2018 [facility] DATE CREATED AUTHOR AUTHOR'S ORGANIZ ATION 06/05/2022 [facility] DATE CREATED AUTHOR AUTHOR'S ORGANIZ ATION 04/09/2023 [facility] DATE CREATED AUTHOR AUTHOR'S ORGANIZ ATION 07/25/2023 [facility] DATE CREATED AUTHOR AUTHOR'S ORGANIZ ATION 11/14/2023 [facility] EPIC REASON FOR VISIT (unrecogniz ed section and content) Reason Comments Med Refill Patient Care team informatio n (unrecognized section and content) 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 [facility]. provides no warranty or guarantee of the accuracy or completeness of information in this document.
[2023-11-17 17:13] LABS: Basophils Absolute Auto 0.1 10^3/uL (0.0-0.1); Basophils Percent Auto 1.1 % (0.2-2.0); Eosinophils Absolute Auto 0.3 10^3/uL (0.0-0.7); Hematocrit 38.5 % (36.0-48.0); Hemoglobin 12.6 g/dL (12.0-16.0); Immature Granulocytes Abs Auto 0.02 10^3/uL (0.00-0.03); Immature Granulocytes Pct Auto 0.4 % (0.0-0.5); Lymphocytes Absolute Auto 2.2 10^3/uL (1.2-3.8); Mean Corpuscular HGB Conc 32.7 g/dL (29.9-35.2); Mean Corpuscular Hemoglobin 31.7 pg (26.7-34.0); Mean Corpuscular Volume 96.7 fL (81.0-99.0); Mean Platelet Volume 10.1 fL (9.5-13.5); Monocytes Absolute Auto 0.3 10^3/uL (0.3-0.8); Monocytes Percent Auto 5.8 % (1.7-12.0); Neutrophils Absolute Auto 2.6 10^3/uL (1.4-6.5); Neutrophils Percent Auto 46.7 % (43.0-75.0); Platelet Count 231 10^3/uL (150-450); Red Blood Count 3.98 10^6/uL (4.20-5.40); White Blood Count 5.5 10^3/uL (4.0-11.0)
[2023-11-17 17:56] LABS: Percent Iron Saturation 16.9 %
[2023-11-19 08:08] LABS: Transferrin 267 mg/dL (192-364)
== END 2023-11-17 16:44 | disposition home or self-care (01) ==
PROVIDERS: PCP Internal Medicine; Visit Provider Internal Medicine
DX: E53.8 Deficiency of other specified B group vitamins (principal); Z98.84 Bariatric surgery status; D50.8 Other iron deficiency anemias
CPT/HCPCS: 36415; 82607; 82728; 83540; 83550; 84466; 85025

== ENCOUNTER 2024-02-07 16:26 | Outpatient (OUT) | payer OTHER, SELFPAY ==
--- OUTSIDE RECORDS SUMMARY | 2024-02-07 16:33 | XMS_ITS | CCD ---
Author Organization [facility] CliniSyga Care Team Providers Care Gasket Notcher Name Role Phone PHYSICIAN, DEFAULT Admitting Unavailable PHYSICIAN, DEFAULT Attending Unavailable HOUSE, GRISLEDA Primary Care Unavailable Kristin Quintana Unavailable MICHAEL [...] Consulting Unavailable KRISTIN, TAWANA Dong Consulting Unavailable AGUBOSIMEYAL Consulting Unavailable LYDIA ., ANITA LUU Consulting Unavailable REBECCA BARCENAS Consulting Unavailable YOON, DR TAMIKO Dickens Consulting Unavailable TYLER, DR VILLALOBOS Primary Care Unavailable MEET, MICHAEL Attending Unavailable MEET, MICHAEL Admitting Unavailable MEET, MICHAEL Consulting Unavailable HOUSE, DR VILLALOBOS Admitting Unavailable HOUSE, DR VILLALOBOS Attending Unavailable HOUSE, DR VILLALOBOS Primary Care Unavailable HOUSE, DR VILLALOBOS Consulting Unavailable HIGHLSHAMIKA, TAWANA Dong Admitting Unavailable HIGHLANDER, TAWANA Dong Attending Unavailable HOUSE, DR VILLALOBOS Primary Care Unavailable WEST, DR TAMIKO Dickens Consulting Unavailable HIGHLSHAMIKA, TAWANA Dong Consulting Unavailable HIGHLANDER, TAWANA Dong Admitting Unavailable HIGHLANDER, TAWANA Dong Attending Unavailable HOUSE, DR VILLALOBOS Primary Care Unavailable DAMON, DR ELLIOT Denis Consulting Unavailable HIGHLANDER, TAWANA Dong Consulting Unavailable RONEN BERG Attending Unavailable RONEN BERG Attending Unavailable SHAIKH MAIN Primary Care Physician Segun HOLLOWAY Attending Unavailable Segun HOLLOWAY Attending Unavailable Shaikh Main MD Primary Care Provider [phone] SHAIKH MAIN Attending Unavailable SHAIKH MAIN Attending Unavailable SHAIKH MAIN Attending Unavailable SHAIKH MAIN Attending Unavailable SHAIKH MAIN Attending Unavailable SHAIKH MAIN Attending Unavailable Allergies Allergy Classification Reported Allergen(s) Allergy Type Date of Onset Reaction(s) Facility (1 source) penciclovir Drug Allergy [facility]i [place] [facility] Other (4 sources) Penicillins; Translations: [PENICILLINS] Drug allergy (disorder) 4 [facility] Repository (1 source) Penicillin G Drug Allergy 3 Unknown [facility] Healthcare (1 source) Penicillins Propensity to adverse reactions 3 [facility] Medications Current Medications Medication Drug Class(es) [...] 90 tablet 0 08/28/2023 11/26/2023 Active Citalopram Gordo bromide Active Cymbalta 30 mg Cap-DR (1 [...] misc (1 source) Start: 08-14-19 End: 09-13-19 Syringe 22G X 3/4 3 ML misc [...] 2 Chronic Other aftercare (1 source) Other long chain beamer (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; Translations: [OTH DETENTION CURRENT DRUG THERAPY] Onset: 2 Episodic Other [...] Range Facility Outside Colonoscopyon 2023 Outside Colonoscopy [id number]#1.00TIFF [facility] Reminderson 07-20-2023 Reminders - From: Machelle Arauz LPN To: N - Clinical; Sent: 07/20/2023 10:55:11 EST Show up: 06/19/2033 07:00:00 EST Subject: colonoscopy recall Due Date/Time: 07/19/2033 07:00:00 EST Reminder/Recall Patient due for screening colonoscopy 07/19/2033. [facility] Lab Reportson 06-26-2023 Lab Reports [id number]#1.00TIFF [facility] Insurance Correspondenceon 08-09-2022 Insurance Correspondence [id number]#1.00TIFF [facility] Facesheeton 06-08-2023 Facesheet [id number]#1.00TIFF [facility] Physician Referralon 023 Physician Referral [id number]#1.00TIFF Ezequiel Conrad [facility] Ambulatory Visit Summaryon 08-07-2022 Ambulatory Visit Summary TALIA MERCADO :1970 [...] for choosing us for your care. Normal [facility] Lab Reportson 05-31-2023 Lab Reports [id number]#1.00TIFF [facility] Consultation Noteon 05-25-20 Consultation Note [id number]#1.00TIFF Normal [facility] Consultation Noteon 05-24-20 Consultation Note [id number]#1.00TIFF [facility] Lab Reportson 05-24-2023 Lab Reports [id number]#1.00TIFF [facility] Operative Reporton Operative Report [id number]#1.00TIFF [facility] Physician Referralon 023 Physician Referral [id number]#1.00TIFF [facility] Office Visiton 04-07-2023 Follow-up visit [id number] Norma Mercado 1970 Date Provider Department Center 04/07/2023 40120-TDNIRQOGIRONEN BERG CARD [facility] Family History Problem Relation Age of Onset Brain Aneurysm Mother 80 Diabetes Mother Heart failure Father 80 Diabetes Father Hypertension Father Diabetes Sister Family Status - Relation Status Age at Mother Father Sister Level of Service:46132 HI OFFICE/OUTPATIENT ESTABLISHED MOD MDM 30-39 MIN Normal [facility] 36on 02-08-2023 36 [facility] lab called to re port critical HGB and hematocrit for patient: HGB was 5.1 and hematocrit is 18.9. I spoke with Talia and advised she go to the ED. She verbalized understanding and will do so. Normal [facility] Office Visiton 02-08-2023 Follow-up visit [id number] Norma Mercado 1970 F Date Provider Department Center 02/08/2023 94092-WRIKIVUVYRONEN BERG CARD [place] [facility] Family History Problem Relation Age of Onset Brain Aneurysm Mother 80 Diabetes Mother Heart failure Father 80 Diabetes Father Hypertension Father Diabetes Sister Family Status - Relation Status Age at Mother Father Sister Level of Service:53195 HI OFFICE/OUTPATIENT NEW MODERATE MDM 45-59 MINUTES Reason for Visit and Comments: Establish Care [42] - Swelling in both legs,right leg is itching and painful Shortness of Breath [204903] Dizziness [902062] Fatigue [46] Normal [facility] PREG HCG QUALon 03-10-2022 , QUAL Negative Normal NEGATIVE [facility] Comment on above: Performed By: #### P REG ####[facility] [address] [place], [place] [address]OrDr. Moni Johnson Covid-19 PCR (CVDTB)on 02-21 SARS-CoV-2 (COVID-19) RNA EMMANUEL+probe Ql (Unsp spec) Not detected Normal NOT DETECTED [facility] Comment on above: Result Comment: This test is not yet approved or cleared by the [place] FDA. When there are no FDA-approved or cleared tests available, and other criteria are met, FDA can make tests available under an emergency access mechanism called an Emergency Use Authorization (EUA). The EUA for this test is supported by the [place] Manager of Health and Human Service's (HHS's) declaration [...] SARS-CoV-2. Performed By: #### C VDTBH #### [facility] Laboratory [address] [place], [place] [address] Dr. Moni Johnson PROF CHEM 8 (BAS METB)on Anion gap [Moles/Vol] 9.0 mmol/L [facility] Comment on above: Performed By: #### B MP ####[facility] [address] [place] [address]Dr. Moni Johnson Calcium [Mass/Vol] 8.3 mg/dL Critically low 8.5-10.1 Th e [facility] Comment on above: Performed By: #### B MP ####[facility] [address] [place] [address]Dr. Moni Johnson Chloride [Moles/Vol] 106 mmol/L Normal 98-107 [facility] Comment on above: Performed By: #### B MP ####[facility] [address] [place], [place] [address]Dr. Moni Johnson CO2 [Moles/Vol] 29.2 mmol/L Normal 21.0-32.0 [facility] Comment on above: Performed By: #### B MP ####[facility] [address] [place], [place] [address]Dr. Moni Johnson Creatinine [Mass/Vol] 0.78 mg/dL Normal 0.55-1.02 [facility] Comment on above: Performed By: #### B MP ####[facility] [address] [place], [place] [address]Dr. Moni Alex EGFR-AF GAMBIAN >60 Normal >=60 [facility] Comment on above: Performed By: #### B MP ####[facility] [address] [place], [place] [address]Dr. Angelinemaria a Alex EGFR-NON AF GAMBIAN >60 Normal >=60 [facility] Comment on above: Performed By: #### B MP ####[facility] [address] [place], [place] [address]Dr. Moni Johnson Glucose [Mass/Vol] 88 mg/dL Normal 74-106 [facility] Comment on above: Performed By: #### B MP ####[facility] [address] [place], [place] [address]Dr. Moni Johnson Potassium [Moles/Vol] 4.2 mmol/L Normal 3.5-5.1 [facility] Comment on above: Performed By: #### B MP ####[facility] [address] [place], [place] [address]Ow. Moni Johnson Sodium [Moles/Vol] 140 mmol/L Normal 136-145 [facility] Comment on above: Performed By: #### B MP ####[facility] [address] [place], [place] [address]Xo. Moni Johnson Urea nitrogen [Mass/Vol] 21.0 mg/dL Critically high 7.0-18.0 [facility] Comment on above: Performed By: #### B MP ####[facility] [address] [place], [place] [address]Xt. Moni Johnson Urea nitrogen/Creatinin e [Mass ratio] 26.9 mg/mg Normal [facility] Comment on above: Performed By: #### B MP ####[facility] [address] [place], [place] [address]Rn. Moni Johnson CT FOOT LT WO CONon [...] ELLIOT JOSE Date: 2022-02-22 18:32 Normal [facility] COVID Quick Testingon 2021 Result Negative [facility] Other Quick Fluon 08-30-2021 FLUAV Ab CF (S) [Titer] Negative Dispop [facility] [employer] Other FLUBV Ab CF (S) [Titer] Negative Dispop [facility] [employer] [facility]24 SARS-CoV-2 (COVID-19) RNA EMMANUEL+probe Ql (Unsp spec) Not detected Normal NOT DETECTED [facility] Comment on above: Result Comment: This test is not yet approved or cleared by the [place] FDA. When there are no FDA-approved or cleared tests available, and other criteria are met, FDA can make tests available under an emergency access mechanism called an Emergency Use Authorization (EUA). The EUA for this test is supported by the Theodore of Health and Human Service's (HHS's) declaration [...] consistent with SARS-CoV-2. Performed By: #### C [facility] #### [facility] [address] [place] [address] Dr. Moni Johnson Vital Signs Date Time Vital Sign Value Performing Clinician Facility 06-07-2023 16:03-0500 Blood Pressure Location Segun AMIE [employer] [facility] 06-07-2023 16:03-0500 Diastolic blood pressure 88 mm[Hg] Segun HOLLOWAY [facility] 06-07-2023 16:03-0500 Heart rate 72 /min Segun HOLLOWAY [facility] 06-07-2023 16:03-0500 Respiratory rate 16 /min Segun HOLLOWAY [facility] 06-07-2023 16:03-0500 Systolic blood pressure 130 mm[Hg] Segun WILLARDJavier [facility] [place] 08-30-2021 13:00-0500 Body height 165.1 cm Kristin Ginty Other [facility] Other 08-30-2021 13:00-0500 Body mass index (BMI) [Ratio] 30.95 kg/m2 Kristin Ginty Other [facility] Other 08-30-2021 13:00-0500 Body temperature 98 [degF] Kristin Ginty Other [facility] Other 08-30-2021 13:00-0500 Body weight 84.37 kg Kristin Ginty Other [facility] Other 08-30-2021 13:00-0500 Respiratory rate 16 /min Kristin Ginty Other [facility] Other 08-30-2021 13:00-0500 SaO2% (BldA) [Mass fraction] 98 % Kristin Ginty Other [facility] Other Encounters Encounter Date Encounter Type Care Provider Facility Start: 01-22-2024 End: 01-22-2024 ambulatory SHAIKH EFREM Not Available Start: 01-08-2024 End: 01-08-2024 ambulatory SHAIKH EFREM Not Available Start: 11-13-2023 End: 11-13-2023 ambulatory SHAIKH EFREM Not Available Start: 08-25-2023 Casey Main MD Work Phone: [facility] Comment on above: Bipolar disorder wit h severe depression (CMS/[facility]) Start: 08-14-2023 End: 08-14-2023 ambulatory SHAIKH EFREM Not Available Start: 08-03-2023 End: 08-03-2023 ambulatory SHAIKH CARLOSD Not Available Start: 07-19-2023 End: 07-20-2023 ambulatory Segun R MONTSEL Facility:CD:[id number] Start: 07-04-2023 End: 07-04-2023 ambulatory SHAIKH CARLOSD Not Available Start: 06-07-2023 End: 06-08-2023 ambulatory Segun R NILL Facility:[facility] Start: 06-07-2023 End: 06-07-2023 Patient encounter procedure Segun R NILL General Surgery Nill/Said [place] Start: 06-05-2023 ambulatory Segun WILLARDL Facility:[facility] Start: 05-18-2023 ambulatory Segun WILLARDL Facility:[facility] Start: 04-07-2023 End: 04-07-2023 ambulatory [facility] Start: 02-08-2023 ambulatory [facility] Start: 05-31-2022 End: 06-01-[address] TAMIKO NETTLES Facility:[facility] Start: 05-10-2022 End: 05-11-[address] ELLIOT JOSE Facility:[facility] Start: 04-19-2022 End: 04-20-2022 ambulatory MICHAEL DSOUZA Facility:[facility] Start: 03-29-2022 End: 03-30-2022 ambulatory MICHAEL DSOUZA Facility:[facility] Start: 03-10-2022 End: 03-10-2022 ambulatory TAWANA FOSTER Facility:[facility] Start: 03-07-2022 Encounter for preprocedural cardiovascular examination TAWANA FOSTER [facility] Start: 03-07-2022 Encounter for preprocedural laboratory examination TAWANA FOSTER [facility] Start: 03-03-2022 End: 03-04-2022 ambulatory TAWANA FOSTER Facility:[facility] Start: 03-03-2022 End: 03-04-2022 Encounter for preprocedural laboratory examination TAWANA FOSTER Facility:[facility] Start: 02-22-2022 End: 02-23-2022 ambulatory TAWANA FOSTER Facility:[facility] Start: 02-09-2022 End: 02-10-2022 ambulatory TAWANA FOSTER Facility:[facility] Start: 08-30-2021 End: 08-30-2021 ambulatory Kristin Quintana Other [facility] Other Start: 08-30-2021 Office outpatient vi sit 15 minutes Kristin Quintana [facility] Start: 06-07-2021 End: 06-07-2021 ambulatory GRISELDA SCOTT Facility:[facility] Start: 11-14-2018 End: 11-15-2018 Patient encounter procedure DEFAULT PHYSICIAN Facility:[facility] Procedures Date Procedure Procedure Detail Performing Clinician [...] for malign ant neoplasm of colon [facility] Start: 11-13-2023 End: 11-13-2023 Patient encounter procedure 11/13/2023 4:45 PM EDT Office Visit [facility] [address] [place] [id number] Shaikh Main MD [address] [place] [id number] [facility] Start: 03-24-2023 Influenza vaccination Influenza Vacc ine (#1) [facility] Start: 2011 Screening for malign ant neoplasm of breast Mammogram [facility] Start: 2001 Screening for malign ant neoplasm of cervix [facility] Start: 1992 Screening for malign ant neoplasm of cervix Pap Smear [facility] Start: 1971 Screening for malign ant neoplasm of colon [facility] Immunizations Immunization Date Immunization Notes Care Provider Fa cility NEGATED: Highlighted row has not occurred!06-07-2023 influenza virus vaccine, unspecified formulation Segun AMEI [facility] [place] Payers Date Payer Category Payer Managed Care HMO (unspecified) AEYAN BRYAN [id number] 2009-Present [address] [place] [address] HMO [id number] 1970 Unknown [id number] 2.16.840.1.817995.3.579.2 .647 1971 Unknown [id number] 2.16.840.1.634588.3.579.2 .593 1971 Unknown [id number] 2.16.840.1.467395.3.579.2 .593 1971 Unknown [id number] 2.16.840.1.873993.3.579.2 .593 1971 Unknown [id number] 2.16.840.1.101219.3.579.2 .593 1971 Unknown [id number] 2.16.840.1.842712.3.579.2 .593 1971 Unknown [id number] 2.16.840.1.649035.3.579.2 .593 1971 Unknown [id number] 2.16.840.1.933986.3.579.2 .593 1971 Unknown [id number] 2.16.840.1.449166.3.579.2 .593 1971 Unknown [id number] 2.16.840.1.187062.3.579.2 .593 1971 Unknown [id number] 2.16.840.1.704089.3.579.2 .727 1971 Unknown [id number] 2.16.840.1.450076.3.579.2 .727 1971 Unknown [id number] 2.16.840.1.868833.3.579.2 .727 1971 Unknown [id number] 2.16.840.1.550157.3.579.2 .727 1971 Unknown [id number] 2.16.840.1.309106.3.579.2 .1259 1971 Unknown [id number] 2.16.840.1.443816.3.579.2 .1259 1971 Unknown [id number] 2.16.840.1.504654.3.579.2 .1259 1971 Unknown [id number] 2.16.840.1.779861.3.579.2 .1259 1971 Unknown [id number] 2.16.840.1.659384.3.579.2 .1259 1971 Unknown [id number] 2.16.840.1.998512.3.579.2 .1259 1958 Private Health Insurance [id number] 2.16.840.1.019277.19 Unknown Social History Date Type Detail Facility Unknown if ever smoked [facility] Other Start: 08-03-2023 End: 08-07-2023 Sex Assigned At [facility] Start: 06-07-2023 Tobacco smoking status Heavy t obacco smoker (finding) [facility] [place] Tobacco smoking status Former sm okeless tobacco user, quit more than 30 days ago [facility] Start: 07-24-1985 [facility] Start: 07-24-1985 History of tobacco use Cigarette Smo ker [facility] Start: 07-04-2023 End: 08-07-2023 Cigarettes smoked current (pack per day) - Reported 1 [facility] Start: 07-04-2023 Tobacco use and exposure Smokeless tobacco non-user [facility] Start: 08-14-2023 Alcohol intake Lifetime non-d florencio (finding) [facility] Within the last year , have you been afraid of your partner or ex-partner? No [facility] Are you now , , , , never or living with a partner? [facility] How often to you hav e [...] got money to buy more. Never true [facility] Start: 07-04-2023 Tobacco Comment Thinking about quitting [facility] Start: 07-04-2023 Alcohol Comment caffeine: 3-4 cups per day [facility] Start: 1970 Sex Assigned At Not on file [facility] Goals Date Patient Goal Desired Activity /State Personal health goal Functional Status Date Assessment Result Facility 06-07-2023 Functional Status N/A [facility] Clinical Notes 08-30-2021 to 06-07-2023 Note Date & Type Note Facility 06-07-2023 Note Chief Complaint consultation for colonoscopy [facility] Staff 53 year old female presents on [...] fibromyalgia, referred for severe anemia, admitted [facility] in January with hb of 5; [...] Cap-DR, 30 mg= (more content not included)... [facility] Comment on above: Result Comment: Elec tronically Signed By: AMIE WELLER, Segun Graham\Date and Time Signed: 06/07/23 17:17 EST 06-07-2023 Evaluation + Plan note Diagnostic Tests PendingIron Level 06/07/23Ferritin 06/07/23Vitamin B12 Level 06/07/23 [facility] [place] 04-07-2023 Note Cardiology Clinic No te Subjective [...] -Resolved, likely exacerbated (more content not included)... [facility] 04-07-2023 Note Patient here for 2 [...] All other systems reviewed and are negative. [facility] 02-08-2023 Note Cardiovascular Medic [facility] SUBJECTIVE Chief Complaint Patient presents [...] about 6 weeks (around 03/22/2023). Ronen Berg APRN-[facility] Cardiovascular Medicine [facility] 05-31-2022 Note PROCEDURE: XR FOOT L [...] authenticated by: TAMIKO NETTLES Date: 2022-05-31 20:30 [facility] 05-11-2022 Note PROCEDURE: XR FOOT L [...] by: ELLIOT JOSE Date: 2022-05-11 16:14 [facility] 04-19-2022 Note PROCEDURE: XR FOOT [...] by: TAMIKO NETTLES Date: 2022-04-19 18:16 [facility] 03-30-2022 Note PROCEDURE: XR FOOT [...] by: TAMIKO NETTLES Date: 2022-03-30 06:41 [facility] 03-11-2022 Note PROCEDURE: XR FOOT [...] authenticated by: ELLIOT JOSE Date: 2022-03-11 08:26 [facility] 03-11-2022 Note PROCEDURE: XR FOOT L T 2V HISTORY: Pain COMPARISON: XR foot left 02/09/2022 FINDINGS: BONES:Multiple intraoperative images demonstrate mechanical fusion of the second and third tarsal-metatarsal joints. SOFT TISSUES:Expected intraoperative findings. EFFUSION:None visible. OTHER: Negative. IMPRESSION: 1. Mechanical fusion of second and third tarsal-metatarsal joints. Electronically authenticated by: ELLIOT JOSE Date: 2022-03-11 07:55 [facility] 02-10-2022 Note PROCEDURE: XR FOOT L T MIN 3 VIEWS COMPARISON: 12/15/2020 HISTORY: Pain FINDINGS: BONES:No acute fracture or dislocation. Stable moderate degenerative changes most significant at the tarsometatarsal joints. Moderate plantar enthesopathic spurring of the calcaneus SOFT TISSUES:Negative. No visible soft tissue swelling. EFFUSION:None visible. OTHER: Negative. IMPRESSION: Stable moderate degenerative changes Electronically authenticated by: TAMIKO NETTLES Date: 2022-02-10 07:37 [facility] 08-30-2021 Evaluation note Encounter Date Diagnosis [...] Patient care instructions given in writting by [facility] Care At Home document [facility] Other Evaluation note* Diagnosis Bipolar disorder with severe depression (CMS/HCC) documented in this encounter [facility] - Reported* Type Description Date Medical History anxiety Medical History GERD [facility] Other Hospital course Narrative No data available for this section [facility] Discharge instructions No data available for this section [facility] [place] Progress note No data available for this section [facility] [place] Summary Purpose Family History No Family History [...] and content) DATE CREATED AUTHOR 11/16/2018 [facility] DATE CREATED AUTHOR AUTHOR'S ORGANIZ ATION 06/05/2022 [facility] DATE CREATED AUTHOR AUTHOR'S ORGANIZ ATION 04/09/2023 [facility] DATE CREATED AUTHOR AUTHOR'S ORGANIZ ATION 07/25/2023 [facility] DATE CREATED AUTHOR AUTHOR'S ORGANIZ ATION 01/23/2024 [facility] dical Specialists EPIC REASON FOR VISIT (unrecogniz ed section and content) Reason Comments Med Refill Patient Care team informatio n (unrecognized section and content) Gasket Notcher Relationship Specialty Start Date End Date Shaikh [...] BE BASED ON THE PRIMARY CLINICAL RECORDS. [employer] [facility]. provides no warranty or guarantee of the accuracy or completeness of information in this document.
[2024-02-07 17:05] LABS: Estimated Average Glucose 100 mg/dL; Glycohemoglobin A1C 5.1 % (4.5-6.2)
[2024-02-07 17:10] LABS: TSH W/ REFLEX FT4 2.985 uIU/mL (0.358-3.740)
== END 2024-02-07 16:27 | disposition home or self-care (01) ==
LOC: LAB 16:27
PROVIDERS: PCP Internal Medicine; Visit Provider Internal Medicine
DX: Z13.1 Encounter for screening for diabetes mellitus (principal); R56.9 Unspecified convulsions
CPT/HCPCS: 36415; 83036; 84443

== ENCOUNTER 2024-02-26 13:59 | Emergency (ER) | payer OTHER, SELFPAY ==
[2024-02-26 14:04] VITALS: BP 120/71; PULSE 85; TEMP 36.9; O2SAT 97; BMI 33.3
--- NOTE | 2024-02-26 14:24 | ECG_ITS ---
The Test Date: 2024-02-26 Pat Name: KALYN RUTHERFORD Department: Room: - Gender: Female Cover Stripper: : 1970 Requested By: SHAIKH EFREM Order Number: [id number] Reading MD: ANGY REYNOLDS Measurements Intervals [place] Rate: 69 P: 45 NE: 158 QRS: 22 QRSD: 78 T: 40 QT: 394 QTc: 414 Interpretive Statements 1100 Sinus rhythm 8102 Low QRS voltage in chest leads 9120 atypical ECG Compared to ECG 02/08/2023 17:31:03 No significant changes Electronically Signed On 02-26-2024 22:55:28 EDT by ANGY REYNOLDS
--- NOTE | 2024-02-26 14:25 | CT_ITS ---
[address] [address] Patient Name: KALYN RUTHERFORD MRN: [id number] date: 1970 Sex: F Assigned Patient Location: ER Current Patient Location: Accession/Order Number: [id number] Exam Date: 02/26/2024 14:57 Report Date: 02/26/2024 15:54 At the request of: GIA CORTÉS Procedure: CT abdomen pelvis w con EXAMINATION: CT abdomen pelvis w con HISTORY: Abdominal pain after eating COMPARISON: No relevant comparison available. TECHNIQUE: Axial, Coronal, and Sagittal images were obtained without and/or with IV contrast as indicated by examination type. Dose reduction techniques were achieved by using automated exposure control and/or adjustment of mA and/or kV according to patient size and/or use of iterative reconstruction technique. FINDINGS: LUNG BASES: No visible pulmonary or pleural disease. LIVER: No enlargement, atrophy, suspicious density, or significant focal lesion. BILIARY: Cholecystectomy. PANCREAS: No lesion, fluid collection, or abnormal duct dilatation. SPLEEN: No enlargement or focal lesion. ADRENALS: No mass or enlargement. KIDNEYS: No mass, obstruction, or calcification. BOWEL/MESENTERY: Prior gastric bypass surgery. Mild diverticulosis of distal colon without acute inflammatory changes. No visible mass, obstruction, or bowel wall thickening. AORTA/VASCULAR: No aneurysm or dissection. RETROPERITONEUM: No mass or adenopathy. LYMPH NODES: No adenopathy. URINARY BLADDER: No visible focal wall thickening, lesion, or calculus. PELVIC ORGANS: No visible mass. Pelvic organs appropriate for patient age. ABDOMINAL WALL: No mass or hernia. BONES: No bony lesion or fracture. OTHER: Negative. CT/CT abdomen pelvis w con IMPRESSION: 1. No acute or suspicious findings to account for patient's symptoms. 2. Distal colon mild diverticulosis. Electronically authenticated by: ELLIOT JOSE Date: 02/26/2024 15:54
--- OUTSIDE RECORDS SUMMARY | 2024-02-26 14:26 | XMS_ITS | CCD ---
Author Organization [facility] CliniSyny Care Team Providers Care Bead Preparer Name Role Phone PHYSICIAN, DEFAULT Admitting Unavailable PHYSICIAN, DEFAULT Attending Unavailable HOUSE, GRISELDA Primary Care Unavailable Kristin Quintana Unavailable [...] Attending Unavailable SHAIKH MAIN Attending Unavailable SHAIKH MIAN Attending Unavailable Allergies Allergy Classification Reported Allergen(s) Allergy Type Date of Onset Reaction(s) Facility (1 source) penciclovir Drug Allergy [facility] Other (4 sources) Penicillins; Translations: [PENICILLINS] Drug allergy (disorder) 4 Hives [facility] Repository (1 source) Penicillin G Drug Allergy 3 Unknown [facility] Healthcare (1 source) Penicillins Propensity to adverse reactions 3 [facility] Medications Current Medications Medication Drug [...] 90 tablet 0 08/28/2023 11/26/2023 Active Citalopram Shapleigh bromide Active Cymbalta 30 mg Cap-DR (1 [...] 2 Chronic Other aftercare (1 source) Other alf (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; Translations: [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 [facility] Lab Reportson 06-26-2023 Lab Reports [id number]#1.00TIFF [facility] Insurance Correspondenceon 08-09-2022 Insurance Correspondence [id number]#1.00TIFF [facility] Facesheeton 06-08-2023 Facesheet [id number]#1.00TIFF [facility] Physician Referralon 023 Physician Referral [id number]#1.00TIFF Ezequiel Conrad [facility] Ambulatory Visit Summaryon 08-07-2022 Ambulatory Visit [...] for choosing us for your care. Normal [facility] Lab Reportson 05-31-2023 Lab Reports [id number]#1.00TIFF [facility] Consultation Noteon 05-25-20 Consultation Note [id number]#1.00TIFF Normal [facility] Consultation Noteon 05-24-20 Consultation Note [id number]#1.00TIFF [facility] Lab Reportson 05-24-2023 Lab Reports [id number]#1.00TIFF [facility] Operative Reporton Operative Report [id number]#1.00TIFF [facility] Physician Referralon 023 Physician Referral [id number]#1.00TIFF [facility] Office Visiton 04-07-2023 Follow-up visit [id number] Norma Mercado 1970 Date Provider Department Center 04/07/2023 [id number] BERG CARD [facility] Family History Problem Relation Age of Onset Brain Aneurysm Mother 80 Diabetes Mother Heart failure Father 80 Diabetes Father Hypertension Father Diabetes Sister Family Status - Relation Status Age at Mother Father Sister Level of Service:[address]6437 [place] OFFICE/OUTPATIENT ESTABLISHED MOD MDM 30-39 MIN Normal [facility] 36on 02-08-2023 36 [facility] lab called to re port critical HGB and hematocrit for patient: HGB was 5.1 and hematocrit is 18.9. I spoke with Talia and advised she go to the ED. She verbalized understanding and will do so. Normal [facility] Office Visiton 02-08-2023 Follow-up visit [id number] Norma Mercado 1970 F Date Provider Department Center 02/08/2023 [id number] BERG CARD [facility] Family History Problem Relation Age of Onset Brain Aneurysm Mother 80 Diabetes Mother Heart failure Father 80 Diabetes Father Hypertension Father Diabetes Sister Family Status - Relation Status Age at Mother Father Sister Level of Service:94275 [place] OFFICE/OUTPATIENT NEW MODERATE MDM 45-59 MINUTES Reason for Visit and Comments: Establish Care [42] - Swelling in both legs,right leg is itching and painful Shortness of Breath [517751] Dizziness [996046] Fatigue [46] Normal [facility] PREG HCG QUALon 03-10-2022 , QUAL Negative Normal NEGATIVE [facility] Comment on above: Performed By: #### P REG ####[facility] [address] [place], [place] [address]OtDr. Moni Johnson Covid-19 PCR (CVDTB)on 02-21 SARS-CoV-2 (COVID-19) RNA EMMANUEL+probe Ql (Unsp spec) Not detected Normal NOT DETECTED [facility] Comment on above: Result Comment: This test is not yet approved or cleared by the [place] FDA. When there are no FDA-approved or cleared tests available, and other criteria are met, FDA can make tests available under an emergency access mechanism called an Emergency Use Authorization (EUA). The EUA for this test is supported by the [place] of Health and Human Service's (HHS's) declaration [...] SARS-CoV-2. Performed By: #### C VDTBH #### [facility] [address] [place], [place] [address] Dr. Moni Johnson PROF CHEM 8 (BAS METB)on Anion gap [Moles/Vol] 9.0 mmol/L Normal [facility] Comment on above: Performed By: #### B MP ####[facility] [address] [place] [address]Dr. Moni Johnson Calcium [Mass/Vol] 8.3 mg/dL Critically low 8.5-10.1 Th e [facility] Comment on above: Performed By: #### B MP ####[facility] [address] [place] [address]Dr. Moni Johnson Chloride [Moles/Vol] 106 mmol/L Normal 98-107 [facility] Comment on above: Performed By: #### B MP ####[facility] [address] [place], [place] [address]Dr. Moni Johnson CO2 [Moles/Vol] 29.2 mmol/L Normal 21.0-32.0 [facility] Comment on above: Performed By: #### B MP ####[facility] [address] [place], [place] [address]Dr. Moni Johnson Creatinine [Mass/Vol] 0.78 mg/dL Normal 0.55-1.02 [facility] Comment on above: Performed By: #### B MP ####[facility] [address] [place], [place] [address]Dr. Moni Alex EGFR-AF NAMIBIAN >60 Normal >=60 [facility] Comment on above: Performed By: #### B MP ####[facility] [address] [place], [place] [address]Dr. Angelinemaria a Alex EGFR-NON AF NAMIBIAN >60 Normal >=60 [facility] Comment on above: Performed By: #### B MP ####[facility] [address] [place], [place] [address]Dr. Moni Johnson Glucose [Mass/Vol] 88 mg/dL Normal 74-106 [facility] [place] Comment on above: Performed By: #### B MP ####[facility] [address] [place], [place] [address]Dr. Moni Johnson Potassium [Moles/Vol] 4.2 mmol/L Normal 3.5-5.1 [facility] Comment on above: Performed By: #### B MP ####[facility] [address] [place], [place] [address]Hd. Moni Johnson Sodium [Moles/Vol] 140 mmol/L Normal 136-145 [facility] Comment on above: Performed By: #### B MP ####[facility] [address] [place], [place] [address]Ac. Moni Johnson Urea nitrogen [Mass/Vol] 21.0 mg/dL Critically high 7.0-18.0 [facility] Comment on above: Performed By: #### B MP ####[facility] [address] [place], [place] [address]Me. Moni Johnson Urea nitrogen/Creatinin e [Mass ratio] 26.9 mg/mg Normal [facility] Comment on above: Performed By: #### B MP ####[facility] [address] [place], [place] [address]Ug. Moin Johnson CT FOOT LT WO CONon 02-23-20 [...] ELLIOT JOSE Date: 2022-02-22 18:32 Normal [facility] COVID Quick Testingon 2021 Result Negative [facility] Other Quick Fluon 08-30-2021 FLUAV Ab CF (S) [Titer] Negative [facility] [employer] Other FLUBV Ab CF (S) [Titer] Negative [facility] [employer] Other [facility]on 05-24 SARS-CoV-2 (COVID-19) RNA EMMANUEL+probe Ql (Unsp spec) Not detected Normal NOT DETECTED [facility] Comment on above: Result Comment: This test is not yet approved or cleared by the [place] FDA. When there are no FDA-approved or cleared tests available, and other criteria are met, FDA can make tests available under an emergency access mechanism called an Emergency Use Authorization (EUA). The EUA for this test is supported by the Equipment Worker of Health and Human Service's (HHS's) [...] consistent with SARS-CoV-2. Performed By: #### C [facility] #### [facility] [address] [place] [address] Dr. Moni Johnson Vital Signs Date Time Vital Sign Value Performing Clinician Facility 06-07-2023 16:03-0500 Blood Pressure Location Segun AMIE Dealised [facility] 06-07-2023 16:03-0500 Diastolic blood pressure 88 mm[Hg] Segun HOLLOWAY [facility] 06-07-2023 16:03-0500 Heart rate 72 /min Segun HOLLOWAY [facility] 06-07-2023 16:03-0500 Respiratory rate 16 /min Segun HOLLOWAY [facility] 06-07-2023 16:03-0500 Systolic blood pressure 130 mm[Hg] Segun WILLARDJavier [facility] [place] 08-30-2021 13:00-0500 Body height 165.1 cm Kristin Ginty Other [facility] Other 08-30-2021 13:00-0500 Body mass index (BMI) [Ratio] 30.95 kg/m2 Kristin Ginty Other [facility] Other 08-30-2021 13:00-0500 Body temperature 98 [degF] Kristin Ginty Other [facility] Other 08-30-2021 13:00-0500 Body weight 84.37 kg Kristin Ginty Other [facility] Other 08-30-2021 13:00-0500 Respiratory rate 16 /min Kristin Ginty Other [facility] Other 08-30-2021 13:00-0500 SaO2% (BldA) [Mass fraction] 98 % Kristin Ginty Other [facility] Other Encounters Encounter Date Encounter Type Care Provider Facility Start: 01-22-2024 End: 01-22-2024 ambulatory SHAIKH EFREM Not Available Start: 01-08-2024 End: 01-08-2024 ambulatory SHAIKH EFREM Not Available Start: 11-13-2023 End: 11-13-2023 ambulatory SHAIKH EFREM Not Available Start: 08-25-2023 Casey Main MD Work Phone: [facility] Comment on above: Bipolar disorder wit h severe depression (CMS/[facility]) Start: 08-14-2023 End: 08-14-2023 ambulatory SHAIKH EFREM Not Available Start: 08-03-2023 End: 08-03-2023 ambulatory SHAIKH CARLOSD Not Available Start: 07-19-2023 End: 07-20-2023 ambulatory Segun R MONTSEL Facility:CD:[id number] Start: 07-04-2023 End: 07-04-2023 ambulatory SHAIKH CARLOSD Not Available Start: 06-07-2023 End: 06-08-2023 ambulatory Segun R NILL Facility:[facility] Start: 06-07-2023 End: 06-07-2023 Patient encounter procedure Segun R NILL General [facility] [place] Start: 06-05-2023 ambulatory Segun WILLARDL Facility:[facility] Start: 05-18-2023 ambulatory Segun WILLARDL Facility:[facility] Start: 04-07-2023 End: 04-07-2023 ambulatory [facility] Start: 02-08-2023 ambulatory [facility] Start: 05-31-2022 End: 06-01-[address] TAMIKO NETTLES Facility:[facility] Start: 05-10-2022 End: 05-11-[address] ELLIOT JOSE Facility:[facility] Start: 04-19-2022 End: 04-20-2022 ambulatory MICHAEL DSOUZA Facility:[facility] Start: 03-29-2022 End: 03-30-2022 ambulatory MICHAEL DSOUZA Facility:[facility] Start: 03-10-2022 End: 03-10-2022 ambulatory TAWANA FOSTER Facility:[facility] Start: 03-07-2022 Encounter for preprocedural cardiovascular examination TAWANA FOSTER [facility] Start: 03-07-2022 Encounter for preprocedural laboratory examination TAWANA FOSTER [facility] Start: 03-03-2022 End: 03-04-2022 ambulatory TAWANA FOSTER Facility:[facility] Start: 03-03-2022 End: 03-04-2022 Encounter for preprocedural laboratory examination TAWANA FOSTER Facility:[facility] Start: 02-22-2022 End: 02-23-2022 ambulatory TAWANA FOSTER Facility:[facility] Start: 02-09-2022 End: 02-10-2022 ambulatory TAWANA FOSTER Facility:[facility] Start: 08-30-2021 End: 08-30-2021 ambulatory Kristin Quintana Other [facility] Other Start: 08-30-2021 Office outpatient vi sit 15 minutes Kristin Quintana [facility] Start: 06-07-2021 End: 06-07-2021 ambulatory GRISELDA SCOTT Facility:[facility] Start: 11-14-2018 End: 11-15-2018 Patient encounter procedure DEFAULT PHYSICIAN Facility:[facility] Procedures Date Procedure Procedure Detail Performing Clinician [...] for malign ant neoplasm of colon [facility] Start: 11-13-2023 End: 11-13-2023 Patient encounter procedure 11/13/2023 4:45 PM EDT Office Visit [facility] [address] [place] [id number] Shaikh Main MD [address] [place] [id number] [facility] Start: 03-24-2023 Influenza vaccination Influenza Vacc ine (#1) [facility] Start: 2011 Screening for malign ant neoplasm of breast Mammogram [facility] Start: 2001 Screening for malign ant neoplasm of cervix [facility] Start: 1992 Screening for malign ant neoplasm of cervix Pap Smear [facility] Start: 1970 Screening for malign ant neoplasm of colon [facility] Immunizations Immunization Date Immunization Notes Care Provider Fa cility NEGATED: Highlighted row has not occurred!06-07-2023 influenza virus vaccine, unspecified formulation Segun AMIE [facility] [place] Payers Date Payer Category Payer Managed Care HMO (unspecified) AEYAN BRYAN [id number] 2009-Present [address] [place] [address] HMO [id number] 1970 Unknown [id number] 2.16.840.1.912515.3.579.2 .647 1970 Unknown [id number] 2.16.840.1.260388.3.579.2 .593 1970 Unknown [id number] 2.16.840.1.552670.3.579.2 .593 1970 Unknown [id number] 2.16.840.1.284648.3.579.2 .593 1970 Unknown [id number] 2.16.840.1.217764.3.579.2 .593 1971 Unknown [id number] 2.16.840.1.233283.3.579.2 .593 1971 Unknown [id number] 2.16.840.1.813783.3.579.2 .593 1971 Unknown [id number] 2.16.840.1.900443.3.579.2 .593 1971 Unknown [id number] 2.16.840.1.169513.3.579.2 .593 1971 Unknown [id number] 2.16.840.1.459769.3.579.2 .593 1971 Unknown [id number] 2.16.840.1.049053.3.579.2 .727 1970 Unknown [id number] 2.16.840.1.021427.3.579.2 .727 1970 Unknown [id number] 2.16.840.1.766317.3.579.2 .727 1970 Unknown [id number] 2.16.840.1.438978.3.579.2 .727 1970 Unknown [id number] 2.16.840.1.782302.3.579.2 .1259 1970 Unknown [id number] 2.16.840.1.336404.3.579.2 .1259 1971 Unknown [id number] 2.16.840.1.142752.3.579.2 .1259 1970 Unknown [id number] 2.16.840.1.357600.3.579.2 .1259 1970 Unknown [id number] 2.16.840.1.613890.3.579.2 .1259 1970 Unknown [id number] 2.16.840.1.324456.3.579.2 .1259 1958 Private Health Insurance [id number] 2.16.840.1.688615.19 Unknown Social History Date Type Detail Facility Unknown if ever smoked [facility] Other Start: 08-03-2023 End: 08-07-2023 Sex Assigned At [facility] Start: 06-07-2023 Tobacco smoking status Heavy t obacco smoker (finding) [facility] [place] Tobacco smoking status Former sm okeless tobacco user, quit more than 30 days ago [facility] Start: 07-24-[facility] Start: 07-24-1985 History of tobacco use Cigarette Smo ker [facility] Start: 07-04-2023 End: 08-07-2023 Cigarettes smoked current (pack per day) - Reported 1 [facility] Start: 07-04-2023 Tobacco use and exposure Smokeless tobacco non-user [facility] Start: 08-14-2023 Alcohol intake Lifetime non-d florencio (finding) [facility] Within the last year , have you been afraid of your partner or ex-partner? No [facility] Are you now , , , , never or living with a partner? [facility] How often to you hav e [...] got money to buy more. Never true [facility] Start: 07-04-2023 Tobacco Comment Thinking about quitting [facility] Start: 07-04-2023 Alcohol Comment caffeine: 3-4 cups per day [facility] Start: 1970 Sex Assigned At Not on file [facility] Goals Date Patient Goal Desired Activity /State Personal health goal Functional Status Date Assessment Result Facility 06-07-2023 Functional Status N/A [facility] [place] Clinical Notes 08-30-2021 to 06-07-2023 Note Date & Type Note Facility 06-07-2023 Note Chief Complaint consultation for colonoscopy [facility] Staff 53 year old female presents on [...] fibromyalgia, referred for severe anemia, admitted to [facility] in January with hb of 5; [...] Cap-DR, 30 mg= (more content not included)... [facility] Comment on above: Result Comment: Elec tronically Signed By: AMIE WELLER, Segun Graham\Date and Time Signed: 06/07/23 17:17 EST 06-07-2023 Evaluation + Plan note Diagnostic Tests PendingIron Level 06/07/23Ferritin 06/07/23Vitamin B12 Level 06/07/23 [facility] [place] 04-07-2023 Note Cardiology Clinic No te Subjective [...] -Resolved, likely exacerbated (more content not included)... [facility] 04-07-2023 Note Patient here for 2 [...] All other systems reviewed and are negative. [facility] 02-08-2023 Note Cardiovascular Medic [facility] SUBJECTIVE Chief Complaint Patient presents with [...] about 6 weeks (around 03/22/2023). Ronen Berg APRN-[facility] Cardiovascular Medicine [facility] 05-31-2022 Note PROCEDURE: XR FOOT L [...] authenticated by: TAMIKO NETTLES Date: 2022-05-31 20:30 [facility] 05-11-2022 Note PROCEDURE: XR FOOT L [...] by: ELLIOT JOSE Date: 2022-05-11 16:14 [facility] 04-19-2022 Note PROCEDURE: XR FOOT [...] by: TAMIKO NETTLES Date: 2022-04-19 18:16 [facility] 03-30-2022 Note PROCEDURE: XR FOOT [...] by: TAMIKO NETTLES Date: 2022-03-30 06:41 [facility] 03-11-2022 Note PROCEDURE: XR FOOT [...] authenticated by: ELLIOT JOSE Date: 2022-03-11 08:26 [facility] 03-11-2022 Note PROCEDURE: XR FOOT L T 2V HISTORY: Pain COMPARISON: XR foot left 02/09/2022 FINDINGS: BONES:Multiple intraoperative images demonstrate mechanical fusion of the second and third tarsal-metatarsal joints. SOFT TISSUES:Expected intraoperative findings. EFFUSION:None visible. OTHER: Negative. IMPRESSION: 1. Mechanical fusion of second and third tarsal-metatarsal joints. Electronically authenticated by: ELLIOT JOSE Date: 2022-03-11 07:55 [facility] 02-10-2022 Note PROCEDURE: XR FOOT L T MIN 3 VIEWS COMPARISON: 12/15/2020 HISTORY: Pain FINDINGS: BONES:No acute fracture or dislocation. Stable moderate degenerative changes most significant at the tarsometatarsal joints. Moderate plantar enthesopathic spurring of the calcaneus SOFT TISSUES:Negative. No visible soft tissue swelling. EFFUSION:None visible. OTHER: Negative. IMPRESSION: Stable moderate degenerative changes Electronically authenticated by: TAMIKO NETTLES Date: 2022-02-10 07:37 [facility] 08-30-2021 Evaluation note Encounter Date Diagnosis [...] Patient care instructions given in writting by [facility] Care At Home document [facility] Other Evaluation note* Diagnosis Bipolar disorder with severe depression (CMS/HCC) documented in this encounter [facility] N[facility] - Reported* Type Description Date Medical History anxiety Medical History GERD [facility] Other Hospital course Narrative No data available for this section [facility] Discharge instructions No data available for this section [facility] Progress note No data available for this section [facility] [place] Summary Purpose Family History No Family History [...] and content) DATE CREATED AUTHOR 11/16/2018 [facility] DATE CREATED AUTHOR AUTHOR'S ORGANIZ ATION 06/05/2022 [facility] DATE CREATED AUTHOR AUTHOR'S ORGANIZ ATION 04/09/2023 [facility] DATE CREATED AUTHOR AUTHOR'S ORGANIZ ATION 07/25/2023 [facility] DATE CREATED AUTHOR AUTHOR'S ORGANIZ ATION 01/23/2024 [facility] EPIC REASON FOR VISIT (unrecogniz ed section and content) Reason Comments Med Refill Patient Care team informatio n (unrecognized section and content) Bead Preparer Relationship Specialty Start Date End Date Shaikh [...] BE BASED ON THE PRIMARY CLINICAL RECORDS. [employer] [facility]. provides no warranty or guarantee of the accuracy or completeness of information in this document.
--- NOTE | 2024-02-26 14:27 | ED.ABDPAIN1 ---
HPI - Abdominal Pain General Chief Complaint: Abdominal Pain Stated Complaint: ABDOMINAL PAIN Time Seen by Provider: 02/26/24 14:08 Source: patient and family Mode of arrival: walk-in Limitations: no limitations History of Present Illness HPI narrative: Patient is a 53-year-old female who presents to the emergency department for the evaluation of epigastric and left upper quadrant pain that has been present for the last week. She states that her symptoms come and go, however she finds that her pain is significantly worse after eating. She had a cholecystectomy about 30 years ago and she had gastric bypass surgery with a physician in [place] 2 years ago. She does take Prilosec for history of GERD. She denies any other abdominal surgeries. She has had no fevers, chills, cough, congestion. No flank or back pain. No urinary symptoms or diarrhea. She states she has been using Pepto-Bismol and Tums without improvement. Related Data Home Medications ?Medication ?Instructions ?Recorded ?Confirmed lansoprazole 30 mg capsule,delayed 30 mg PO DAILY 02/08/23 07/19/23 release duloxetine 30 mg capsule,delayed 60 mg PO DAILY 06/19/23 07/19/23 release (Cymbalta) ferrous sulfate 325 mg (65 mg 325 mg PO DAILY 06/19/23 07/19/23 iron) tablet (Feosol) fexofenadine-pseudoephedrine ER 1 tab PO Q24H PRN allergy symptoms 06/19/23 07/19/23 180 mg-240 mg tablet,ext.release 24 hr (Allergy Relief-D (fexofenadine)) tolterodine 4 mg capsule,extended 4 mg PO DAILY 06/19/23 07/19/23 release 24 hr (Detrol LA) bupropion HCl 100 mg tablet 150 mg PO DAILY 07/11/23 07/19/23 zolpidem 10 mg tablet (Ambien) 10 mg PO DAILY PRN insomnia 07/11/23 07/19/23 Previous Rx's ?Medication ?Instructions ?Recorded hyoscyamine sulfate 0.125 mg 0.125 mg PO Q6H PRN abdominal pain 02/26/24 tablet (Levsin) #12 tabs magnesium citrate (Citrate of 296 ml PO DAILY constipation #296 02/26/24 Magnesia oral) mL ondansetron 4 mg disintegrating 4 mg PO Q6H PRN nausea and 02/26/24 tablet vomiting #12 tabs pantoprazole 40 mg tablet,delayed 40 mg PO DAILY #7 tabs 02/26/24 release (Protonix) sucralfate 1 gram tablet (Carafate) 1 g PO Q6H PRN abdominal pain #12 02/26/24 tabs Allergies Allergy/AdvReac Type Severity Reaction Status Date / Time Penicillins Allergy Severe Hives Verified 02/26/24 14:08 Review of Systems ROS Constitutional Denies: fever or chills Ears, nose, mouth, and throat Denies: throat pain or nasal congestion Cardiovascular Denies: chest pain Respiratory Denies: shortness of breath Gastrointestinal Reports: abdominal pain; Denies: nausea or vomiting Integumentary/Breast Denies: rash Neurological Denies: headache Hematologic/Lymphatic Denies: easy bruising or easy bleeding PFSH [facility] Medical History (Updated 02/26/24 @ 16:25 by NAGI Sanders) Overactive bladder ?N32.81 - Overactive bladder (ICD-10) Obesity ?E66.9 - Obesity, unspecified (ICD-10) Nicotine dependence ?F17.200 - Nicotine dependence, unspecified, uncomplicated (ICD-10) History of cystocele ?Z87.448 - Personal history of other diseases of urinary system (ICD-10) PVD (peripheral vascular disease) ?I73.9 - Peripheral vascular disease, unspecified (ICD-10) Iron deficiency anemia ?D50.9 - Iron deficiency anemia, unspecified (ICD-10) Fibromyalgia ?M79.7 - Fibromyalgia (ICD-10) Bipolar disorder ?F31.9 - Bipolar disorder, unspecified (ICD-10) UGIB (upper gastrointestinal bleed) ?K92.2 - Gastrointestinal hemorrhage, unspecified (ICD-10) Anxiety with depression ?F41.8 - Other specified anxiety disorders (ICD-10) Gastro-esophageal reflux ?K21.9 - Gastro-esophageal reflux disease without esophagitis (ICD-10) Arthritis of left foot ?M19.072 - Primary osteoarthritis, left ankle and foot (ICD-10) RP (rectal prolapse) ?K62.3 - Rectal prolapse (ICD-10) Chronic headache ?R51.9 - Headache, unspecified (ICD-10) ?G89.29 - Other chronic pain (ICD-10) Surgical History (Updated 07/11/23 @ 11:05 by Nereida Hall) History of tubal ligation ?Z98.51 - Tubal ligation status (ICD-10) Hx of cholecystectomy ?Z90.49 - Acquired absence of other specified parts of digestive tract (ICD-10) H/O cystoscopy ?Z98.890 - Other specified postprocedural states (ICD-10) H/O esophagogastroduodenoscopy ?Z98.890 - Other specified postprocedural states (ICD-10) Hx of gastric bypass ?Z98.84 - Bariatric surgery status (ICD-10) Family History (Updated 06/19/23 @ 17:07 by Marley Benoit) Mother Family history of diabetes mellitus Father Heart disease Social History Within the past year, how often did you have a drink containing alcohol: never Within the past year, how often did you have six or more drinks on one occasion: never Score interpretation: A score less than 3 is consistent with normal alcohol consumption. Smoking status: Current every day smoker Second hand tobacco smoke exposure: Yes Non-prescribed substance use: denies use Previous occupational history: [employer] Known occupational exposures/hazards: No Highest level of school completed/degree received: high school graduate Do you think of yourself as: straight/heterosexual Gender Identity: female Exam Narrative Exam Narrative: Gen.: Awake, alert, in no distress Head: Normocephalic, atraumatic ENT: Moist mucous membranes Respiratory: No respiratory distress, lungs clear bilaterally Cardio: Regular rate and rhythm Gastrointestinal: Abdomen is soft, nondistended and tender to palpation with voluntary guarding in the epigastrium, no rebound. No right upper quadrant tenderness. No McBurney's point tenderness. No pain out of proportion on exam Extremities: Moves extremities equally Psych: Normal mood and affect Neuro: No focal neuro deficit Skin: Warm, dry, intact Constitutional Vital Signs, click to edit/add: Last Vital Signs Temp 98.4 F 02/26/24 14:04 Pulse 85 02/26/24 14:04 Resp 18 02/26/24 14:04 BP 120/71 02/26/24 14:04 Pulse Ox 97 02/26/24 14:04 O2 Del Method Room Air 02/26/24 14:04 Course Vital Signs Vital signs: Vital Signs Temperature 98.4 F 02/26/24 14:04 Pulse Rate 85 02/26/24 14:04 Respiratory Rate 18 02/26/24 14:04 Blood Pressure 120/71 02/26/24 14:04 Pulse Oximetry 97 02/26/24 14:04 Oxygen Delivery Method Room Air 02/26/24 14:04 Temperature 98.4 F 02/26/24 14:04 Pulse Rate 85 02/26/24 14:04 Respiratory Rate 18 02/26/24 14:04 Blood Pressure 120/71 02/26/24 14:04 Pulse Oximetry 97 02/26/24 14:04 Oxygen Delivery Method Room Air 02/26/24 14:04 MDM - Abdominal Pain MDM Narrative Medical decision making narrative: Patient treated with IV fluids, Dilaudid, Zofran, Protonix. Abdomen is soft and benign in the ER. labs, EKG, CT scan obtained. These are all grossly unremarkable. Urine specimen is unremarkable. Discussed with patient, vital signs stable at discharge. Patient will be treated for suspected gastritis, esophagitis. Carafate, Protonix, Zofran, Levsin, magnesium citrate given for home. Patient states she has had infrequent bowel movements and wonders if constipation may be playing a role in her symptoms. Follow-up with PCP and return to the ER if symptoms change or worsen. SUPERVISED APC VISIT, PHYSICIAN ATTESTATION: Based on the medical record the care appears appropriate. ? Medical Records Attestation: I reviewed the patient's medical records. Lab Data Attestation: I reviewed the patient's lab results. Labs: Lab Results 02/26/24 02/26/24 Range/Units 14:15 14:43 WBC 5.6 (4.0-11.0) 10^3/uL RBC 3.99 L (4.20-5.40) 10^6/uL Hgb 12.7 (12.0-16.0) g/dL Hct 37.7 (36.0-48.0) % MCV 94.5 (81.0-99.0) fL MCH 31.8 (26.7-34.0) pg MCHC 33.7 (29.9-35.2) g/dL RDW 12.3 (11.0-15.0) % Plt Count 264 (150-450) 10^3/uL MPV 10.4 (9.5-13.5) fL Neut % (Auto) 43.6 (43.0-75.0) % Lymph % (Auto) 44.1 (20.5-60.0) % [place] % (Auto) 6.6 (1.7-12.0) % Eos % (Auto) 4.3 (0.9-7.0) % Baso % (Auto) 1.2 (0.2-2.0) % Neut # (Auto) 2.5 (1.4-6.5) 10^3/uL Lymph # (Auto) 2.5 (1.2-3.8) 10^3/uL [place] # (Auto) 0.4 (0.3-0.8) 10^3/uL Eos # (Auto) 0.2 (0.0-0.7) 10^3/uL Baso # (Auto) 0.1 (0.0-0.1) 10^3/uL Abs Immat Gran (auto) 0.01 (0.00-0.03) 10^3/uL Imm/Tot Granulo (auto) 0.2 (0.0-0.5) % PT 10.4 (9.0-11.6) sec INR 0.98 Sodium 139 (136-145) mmol/L Potassium 4.1 (3.5-5.1) mmol/L Chloride 103 (98-107) mmol/L Carbon Dioxide 27.3 (21.0-32.0) mmol/L Anion Gap 12.8 BUN 14.0 (7.0-18.0) mg/dL Creatinine 0.84 (0.55-1.02) mg/dL Est GFR ( Amer) >60 (>=60) Est GFR (Non-Af Amer) >60 (>=60) BUN/Creatinine Ratio 16.7 Glucose 81 (74-106) mg/dL Lactate 1.0 (0.4-2.0) mmol/L Calcium 8.7 (8.5-10.1) mg/dL Total Bilirubin 0.3 (0.2-1.0) mg/dL AST 16 (15-37) U/L ALT 22 (14-59) U/L Alkaline Phosphatase 98 (46-116) U/L Troponin I High Sens <4.0 L (4.0-51.3) pg/mL Total Protein 6.6 (6.4-8.2) g/dL Albumin 3.6 (3.4-5.0) g/dL Globulin 3.0 g/dL Albumin/Globulin Ratio 1.2 Lipase 43.0 (16.0-77.0) U/L Urine Color Lt. yellow (YELLOW) Urine Clarity Clear (CLEAR) Urine pH 6.0 (5.0-9.0) Ur Specific [place] 1.025 (1.005-1.025) Urine Protein Negative (NEG/TRACE) mg/dL Urine Glucose (UA) Negative (NEGATIVE) mg/dL Urine Ketones Negative (NEGATIVE) mg/dL Urine Occult Blood Negative (NEGATIVE) Urine Nitrite Negative (NEGATIVE) Urine Bilirubin Negative (NEGATIVE) Urine Urobilinogen 0.2 (0.2-1.0) EU/dL Ur Leukocyte Esterase Negative (NEGATIVE) Imaging Data CT scan - abdomen: Attestation: I have reviewed the pertinent imaging results. Radiologist's impression: ITS Impressions Abdomen/Pelvis CT 02/26/24 14:25 IMPRESSION: 1. No acute or suspicious findings to account for patient's symptoms. 2. Distal colon mild diverticulosis. Electronically authenticated by: ELLIOT JOSE Date: 02/26/2024 15:54 ECG Data Attestation: I personally reviewed and interpreted this ECG as follows: (Normal sinus rhythm at a rate of 69, no acute ST elevation or ectopy. EKG reviewed by attending physician.) Discharge Plan Discharge Stand Alone Forms: Portal Instructions Chief Complaint: Abdominal Pain Clinical Impression: Abdominal pain Patient Disposition: Home, Self-Care Time of Disposition Decision: 16:25 Condition: Good Prescriptions / Home Meds: New sucralfate [Carafate] 1 gram tablet 1 g PO Q6H PRN (Reason: abdominal pain) Qty: 12 0RF pantoprazole [Protonix] 40 mg tablet,delayed release (DR/EC) 40 mg PO DAILY Qty: 7 0RF hyoscyamine sulfate [Levsin] 0.125 mg tablet 0.125 mg PO Q6H PRN (Reason: abdominal pain) Qty: 12 0RF ondansetron 4 mg tablet,disintegrating 4 mg PO Q6H PRN (Reason: nausea and vomiting) Qty: 12 0RF magnesium citrate [Citrate of Magnesia] Solution 296 ml PO DAILY Qty: 296 0RF Rx Instructions: Take half of the bottle with 8 oz of water, take the other half after 1 hour with 8 oz of water No Action lansoprazole 30 mg capsule,delayed release(DR/EC) 30 mg PO DAILY duloxetine [Cymbalta] 30 mg capsule,delayed release(DR/EC) 60 mg PO DAILY tolterodine [Detrol LA] 4 mg capsule,extended release 24hr 4 mg PO DAILY ferrous sulfate [Feosol] 325 mg (65 mg iron) tablet 325 mg PO DAILY fexofenadine-pseudoephedrine [Allergy Relief-D(fexofenadine)] 180-240 mg tablet extended release 24 hr 1 tab PO Q24H PRN (Reason: allergy symptoms) zolpidem [Ambien] 10 mg tablet 10 mg PO DAILY PRN (Reason: insomnia) bupropion HCl 100 mg tablet 150 mg PO DAILY Print Language: Serbian Instructions: Acute Abdominal Pain (ED) Referrals: Shaikh Main MD [Primary Care Provider] - 1 week
[2024-02-26] MEDS: PANTOPRAZOLE SODIUM 40 MG VIAL IV (14:34)
[2024-02-26] MEDS: HYDROMORPHONE HCL 0.5 MG/0.5 ML SYRINGE IV (14:34)
[2024-02-26] MEDS: 0.9 % SODIUM CHLORIDE 1,000 ML 999 ML IV (14:34)
[2024-02-26] MEDS: ONDANSETRON PF 4 MG/2 ML VIAL IV (14:34)
[2024-02-26 14:46] LABS: Basophils Absolute Auto 0.1 10^3/uL (0.0-0.1); Basophils Percent Auto 1.2 % (0.2-2.0); Eosinophils Absolute Auto 0.2 10^3/uL (0.0-0.7); Eosinophils Percent Auto 4.3 % (0.9-7.0); Hematocrit 37.7 % (36.0-48.0); Hemoglobin 12.7 g/dL (12.0-16.0); Immature Granulocytes Abs Auto 0.01 10^3/uL (0.00-0.03); Immature Granulocytes Pct Auto 0.2 % (0.0-0.5); Lymphocytes Absolute Auto 2.5 10^3/uL (1.2-3.8); Lymphocytes Percent Auto 44.1 % (20.5-60.0); Mean Corpuscular HGB Conc 33.7 g/dL (29.9-35.2); Mean Corpuscular Hemoglobin 31.8 pg (26.7-34.0); Mean Corpuscular Volume 94.5 fL (81.0-99.0); Mean Platelet Volume 10.4 fL (9.5-13.5); Monocytes Absolute Auto 0.4 10^3/uL (0.3-0.8); Monocytes Percent Auto 6.6 % (1.7-12.0); Neutrophils Absolute Auto 2.5 10^3/uL (1.4-6.5); Neutrophils Percent Auto 43.6 % (43.0-75.0); Platelet Count 264 10^3/uL (150-450); Red Blood Count 3.99 10^6/uL (4.20-5.40); Red Cell Distribution Width 12.3 % (11.0-15.0); White Blood Count 5.6 10^3/uL (4.0-11.0)
[2024-02-26 15:01] LABS: INR 0.98; Prothrombin Time 10.4 sec (9.0-11.6)
[2024-02-26 15:03] LABS: Bilirubin Urine NEGATIVE (NEGATIVE); Blood Urine NEGATIVE (NEGATIVE); Clarity Urine CLEAR (CLEAR); Color Urine LT. YELLOW (YELLOW); Glucose Urine UA NEGATIVE (NEGATIVE); Ketones Urine NEGATIVE (NEGATIVE); Leukocyte Esterase Urine NEGATIVE (NEGATIVE); Nitrite Urine NEGATIVE (NEGATIVE); Protein Urine NEGATIVE (NEG/TRACE); Specific Gravity Urine 1.025 (1.005-1.025); Urobilinogen Urine 0.2 EU/dL (0.2-1.0)
[2024-02-26 15:06] LABS: Alanine Aminotransferase 22 U/L (14-59); Albumin Globulin Ratio 1.2; Albumin Level 3.6 g/dL (3.4-5.0); Alkaline Phosphatase 98 U/L (46-116); Anion Gap 12.8; Aspartate Amino Transferase 16 U/L (15-37); BUN Creatinine Ratio 16.7; Bilirubin Total 0.3 mg/dL (0.2-1.0); Calcium 8.7 mg/dL (8.5-10.1); Carbon Dioxide 27.3 mmol/L (21.0-32.0); Chloride 103 mmol/L (98-107); Estimated GFR (African America >60 (>=60); Estimated GFR (Non-African Ame >60 (>=60); Glucose 81 mg/dL (74-106); Potassium 4.1 mmol/L (3.5-5.1); Sodium 139 mmol/L (136-145); Total Protein 6.6 g/dL (6.4-8.2)
[2024-02-26 15:06] LABS: Urine Microscopic Indicated NO
[2024-02-26 15:07] LABS: Troponin I High Sensitivity <4.0 pg/mL (4.0-51.3)
== END 2024-02-26 16:38 | disposition home or self-care (01) ==
PROVIDERS: Physician Assistant; Emergency Provider Student in an Organized Health Care Education/Training Program; PCP Internal Medicine
DX: R10.9 Unspecified abdominal pain (principal); Z90.49 Acquired absence of other specified parts of digestive tract; Z98.84 Bariatric surgery status; F17.210 Nicotine dependence, cigarettes, uncomplicated
CPT/HCPCS: 36415; 74177; 80053; 81003; 83605; 83690; 84484; 85025; 85610; 93005; 96374; 96375; 99285; J1170; J2405; Q9967

== ENCOUNTER 2024-08-01 12:47 | Emergency (ER) | payer OTHER, SELFPAY ==
[2024-08-01 12:59] VITALS: BP 106/58; PULSE 80; TEMP 37.3; O2SAT 97; BMI 34.3
--- NOTE | 2024-08-01 13:15 | XR_ITS ---
The [address] [address] Patient Name: KALYN RUTHERFORD MRN: [id number] date: 1970 Sex: F Assigned Patient Location: ER Current Patient Location: ER Accession/Order Number: [id number] Exam Date: 08/01/2024 13:35 Report Date: 08/01/2024 13:57 At the request of: GIA CORTÉS Procedure: XR lumbar spine 2-3V EXAMINATION: XR lumbar spine 2-3V HISTORY: back pain COMPARISON: No relevant comparison available. FINDINGS: BONES: Mild to moderate spondylosis and facet osteoarthritis L5-S1. No visible acute bony abnormality. DISC SPACES: Disc space narrowing L5-S1 PARASPINOUS: Negative. No paraspinous abnormality is seen. OTHER: Negative. XR/XR lumbar spine 2-3V IMPRESSION: Mild to moderate degenerative changes at L5-S1 Electronically authenticated by: TAMIKO NETTLES Date: 08/01/2024 13:57
--- NOTE | 2024-08-01 13:18 | ED.BACK1 ---
HPI HPI - Back Pain/Injury General Chief Complaint: Back Pain/Injury Stated Complaint: BACK PAINS Time Seen by Provider: 08/01/24 13:10 Source: patient Mode of arrival: walk-in Limitations: no limitations History of Present Illness HPI Narrative: Patient is a 54-year-old female who presents to the emergency department for 2-day history of pain radiating across the lumbar spine. She states she was getting out of her truck when she felt a pop in her back as she twisted. She denies any falls or injuries. She has no pain radiation to the lower extremities, no peripheral paresthesias, no urinary incontinence. She is ambulatory. She states she does have a history of sciatica but no previous back surgeries. No medications taken prior to arrival. Related Data Home Medications ?Medication ?Instructions ?Recorded ?Confirmed lansoprazole 30 mg capsule,delayed 30 mg PO DAILY 02/08/23 07/19/23 release duloxetine 30 mg capsule,delayed 60 mg PO DAILY 06/19/23 07/19/23 release (Cymbalta) ferrous sulfate 325 mg (65 mg 325 mg PO DAILY 06/19/23 07/19/23 iron) tablet (Feosol) fexofenadine-pseudoephedrine ER 1 tab PO Q24H PRN allergy symptoms 06/19/23 07/19/23 180 mg-240 mg tablet,ext.release 24 hr (Allergy Relief-D (fexofenadine)) tolterodine 4 mg capsule,extended 4 mg PO DAILY 06/19/23 07/19/23 release 24 hr (Detrol LA) bupropion HCl 100 mg tablet 150 mg PO DAILY 07/11/23 07/19/23 zolpidem 10 mg tablet (Ambien) 10 mg PO DAILY PRN insomnia 07/11/23 07/19/23 Previous Rx's ?Medication ?Instructions ?Recorded hyoscyamine sulfate 0.125 mg 0.125 mg PO Q6H PRN abdominal pain 02/26/24 tablet (Levsin) #12 tabs magnesium citrate (Citrate of 296 ml PO DAILY constipation #296 02/26/24 Magnesia oral) mL ondansetron 4 mg disintegrating 4 mg PO Q6H PRN nausea and 02/26/24 tablet vomiting #12 tabs pantoprazole 40 mg tablet,delayed 40 mg PO DAILY #7 tabs 02/26/24 release (Protonix) sucralfate 1 gram tablet (Carafate) 1 g PO Q6H PRN abdominal pain #12 02/26/24 tabs hydrocodone 5 mg-acetaminophen 325 1 tab PO Q6H PRN pain 3 days #12 08/01/24 mg tablet tabs methocarbamol 750 mg tablet 750 mg PO TID PRN pain #20 tabs 08/01/24 methylprednisolone 4 mg tablets in See Rx Instructions .Route 08/01/24 a dose pack (Medrol (Lion)) .COMPLEX #21 ea Allergies Allergy/AdvReac Type Severity Reaction Status Date / Time Penicillins Allergy Severe Hives Verified 08/01/24 12:59 Opioid HPI Opioid Management Most Recent Opioid Data: Last Pain Scale 7 08/01/24 13:30 08/01/24 Last MAR Pain Assessment 08/01/24 13:30 Review of Systems ROS Constitutional Denies: fever or chills Ears, nose, mouth, and throat Denies: throat pain or nasal congestion Respiratory Denies: shortness of breath or cough Gastrointestinal Denies: abdominal pain, nausea or vomiting Genitourinary Denies: painful urination Musculoskeletal Reports: back pain; Denies: neck pain, extremity pain or extremity swelling Neurological Denies: numbness in extremities or weakness in extremities Hematologic/Lymphatic Denies: easy bruising or easy bleeding PFSH [facility] Medical History (Updated 08/01/24 @ 14:12 by NAGI Sanders) Overactive bladder ?N32.81 - Overactive bladder (ICD-10) Obesity ?E66.9 - Obesity, unspecified (ICD-10) Nicotine dependence ?F17.200 - Nicotine dependence, unspecified, uncomplicated (ICD-10) History of cystocele ?Z87.448 - Personal history of other diseases of urinary system (ICD-10) PVD (peripheral vascular disease) ?I73.9 - Peripheral vascular disease, unspecified (ICD-10) Iron deficiency anemia ?D50.9 - Iron deficiency anemia, unspecified (ICD-10) Fibromyalgia ?M79.7 - Fibromyalgia (ICD-10) Bipolar disorder ?F31.9 - Bipolar disorder, unspecified (ICD-10) UGIB (upper gastrointestinal bleed) ?K92.2 - Gastrointestinal hemorrhage, unspecified (ICD-10) Anxiety with depression ?F41.8 - Other specified anxiety disorders (ICD-10) Gastro-esophageal reflux ?K21.9 - Gastro-esophageal reflux disease without esophagitis (ICD-10) Arthritis of left foot ?M19.072 - Primary osteoarthritis, left ankle and foot (ICD-10) RP (rectal prolapse) ?K62.3 - Rectal prolapse (ICD-10) Chronic headache ?R51.9 - Headache, unspecified (ICD-10) ?G89.29 - Other chronic pain (ICD-10) Surgical History (Updated 07/11/23 @ 11:05 by Nereida Hall) History of tubal ligation ?Z98.51 - Tubal ligation status (ICD-10) Hx of cholecystectomy ?Z90.49 - Acquired absence of other specified parts of digestive tract (ICD-10) H/O cystoscopy ?Z98.890 - Other specified postprocedural states (ICD-10) H/O esophagogastroduodenoscopy ?Z98.890 - Other specified postprocedural states (ICD-10) Hx of gastric bypass ?Z98.84 - Bariatric surgery status (ICD-10) Family History (Updated 06/19/23 @ 17:07 by Marley Benoit) Mother Family history of diabetes mellitus Father Heart disease Social History Within the past year, how often did you have a drink containing alcohol: never Within the past year, how often did you have six or more drinks on one occasion: never Score interpretation: A score less than 3 is consistent with normal alcohol consumption. 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 No bony point tenderness. No CVA tenderness or flank tenderness. Extremities: Moves extremities equally, normal dorsiflexion and plantarflexion of the lower extremities, no decrease in sensation to the medial thighs. Normal hip flexion bilaterally. Psych: Normal mood and affect Neuro: No focal neuro deficit Skin: Warm, dry, intact Constitutional Vital Signs, click to edit/add: Last Vital Signs Temp 99.1 F 08/01/24 12:59 Pulse 80 08/01/24 12:59 Resp 16 08/01/24 12:59 BP 106/58 08/01/24 12:59 Pulse Ox 97 08/01/24 12:59 O2 Del Method Room Air 08/01/24 12:59 Course Vital Signs Vital signs: Vital Signs Temperature 99.1 F 08/01/24 12:59 Pulse Rate 80 08/01/24 12:59 Respiratory Rate 16 08/01/24 12:59 Blood Pressure 106/58 08/01/24 12:59 Pulse Oximetry 97 08/01/24 12:59 Oxygen Delivery Method Room Air 08/01/24 12:59 Temperature 99.1 F 08/01/24 12:59 Pulse Rate 80 08/01/24 12:59 Respiratory Rate 16 08/01/24 12:59 Blood Pressure 106/58 08/01/24 12:59 Pulse Oximetry 97 08/01/24 12:59 Oxygen Delivery Method Room Air 08/01/24 12:59 MDM - Back Pain/Injury MDM Narrative Medical decision making narrative: Patient medicated for pain in the emergency department, lumbar spine x-rays show degenerative changes at L5/S1. Patient is neurovascularly intact with no focal neurodeficits and discharged home with a short course of analgesics, muscle relaxants and a steroid taper. Follow-up with PCP and return to the ER if symptoms change or worsen SUPERVISED APC VISIT, PHYSICIAN ATTESTATION: Based on the medical record the care appears appropriate. ? Medical Records Attestation: I reviewed the patient's medical records. Discharge Plan Discharge Chief Complaint: Back Pain/Injury Clinical Impression: Lumbar strain Patient Disposition: Home, Self-Care Time of Disposition Decision: 14:12 Condition: Good Prescriptions / Home Meds: New hydrocodone-acetaminophen 5-325 mg tablet 1 tab PO Q6H PRN (Reason: pain) 3 Days Qty: 12 0RF Rx Instructions: DX: M54.5 methocarbamol 750 mg tablet 750 mg PO TID PRN (Reason: pain) Qty: 20 0RF methylprednisolone [Medrol (Lion)] 4 mg tablets,dose pack See Rx Instructions .ROUTE .COMPLEX Qty: 21 0RF Rx Instructions: Taper as directed No Action lansoprazole 30 mg capsule,delayed release(DR/EC) 30 mg PO DAILY sucralfate [Carafate] 1 gram tablet 1 g PO Q6H PRN (Reason: abdominal pain) Qty: 12 0RF pantoprazole [Protonix] 40 mg tablet,delayed release (DR/EC) 40 mg PO DAILY Qty: 7 0RF hyoscyamine sulfate [Levsin] 0.125 mg tablet 0.125 mg PO Q6H PRN (Reason: abdominal pain) Qty: 12 0RF ondansetron 4 mg tablet,disintegrating 4 mg PO Q6H PRN (Reason: nausea and vomiting) Qty: 12 0RF magnesium citrate [Citrate of Magnesia] Solution 296 ml PO DAILY Qty: 296 0RF Rx Instructions: Take half of the bottle with 8 oz of water, take the other half after 1 hour with 8 oz of water duloxetine [Cymbalta] 30 mg capsule,delayed release(DR/EC) 60 mg PO DAILY tolterodine [Detrol LA] 4 mg capsule,extended release 24hr 4 mg PO DAILY ferrous sulfate [Feosol] 325 mg (65 mg iron) tablet 325 mg PO DAILY fexofenadine-pseudoephedrine [Allergy Relief-D(fexofenadine)] 180-240 mg tablet extended release 24 hr 1 tab PO Q24H PRN (Reason: allergy symptoms) zolpidem [Ambien] 10 mg tablet 10 mg PO DAILY PRN (Reason: insomnia) bupropion HCl 100 mg tablet 150 mg PO DAILY Print Language: Haitian Instructions: Low Back Strain (ED) Referrals: ANGEL LUIS LAMAR [Primary Care Provider] - 1 week
[2024-08-01] MEDS: HYDROCODONE/ACET 5-325 MG TABLET 1 TAB PO (13:30)
[2024-08-01] MEDS: KETOROLAC TROMETHAMINE 60 MG/2 ML VIAL IM (13:30)
[2024-08-01] MEDS: ORPHENADRINE 60 MG/ 2 ML VIAL IM (13:31)
== END 2024-08-01 14:18 | disposition home or self-care (01) ==
PROVIDERS: Emergency Provider Student in an Organized Health Care Education/Training Program
DX: S39.012A Strain of muscle, fascia and tendon of lower back, initial encounter (principal); X50.1XXA Overexertion from prolonged static or awkward postures, initial encounter; Z90.49 Acquired absence of other specified parts of digestive tract; Z98.84 Bariatric surgery status; F17.200 Nicotine dependence, unspecified, uncomplicated
CPT/HCPCS: 72100; 96372; 99284; J1885; J2360

== ENCOUNTER 2024-08-01 14:21 | Outpatient (OUT) | payer OTHER, SELFPAY ==
--- OUTSIDE RECORDS SUMMARY | 2024-08-01 14:32 | XMS_ITS | CCD ---
Author Organization [facility] Care Team Providers Care Zinc Chloride Operator Name Role Phone PHYSICIAN, DEFAULT Admitting Unavailable [...] Unavailable LYDIA ., ANITA LUU Consulting Unavailable JUNGSADE, REBECCA Consulting Unavailable YOON, DR TAMIKO Dickens [...] Attending Unavailable SHAIKH MAIN Primary Care Physician [phone] [address] MD Primary Care Provider Ron Palomares Attending Unavailable Segun DUARTE Attending Unavailable Segun DUARTE Attending Unavailable EFREM, Attending Unavailable EFREM, Attending Unavailable EFREM, Attending Unavailable EFREM, Attending Unavailable EFREM, Attending Unavailable GROVES, VALERIE Attending Unavailabl e GROVES, VALERIE Attending Unavailabl e GROVES, VALERIE Attending Unavailabl e GROVES, VALERIE Attending Unavailabl e EFREM, Attending Unavailable MD Tyson Collazo Attending Provider Tyson Collazo Attending Unavailable Tyson Collazo Admitting Unavailable Molina De Anda MD Primary Care Provider [phone] Germain DIESEL TRAILER MECHANIC, Valerie Unavailable Allergies Allergy Classification Reported Allergen(s) Allergy Type Date of Onset Reaction(s) Facility (2 sources) penciclovir; Translations: [penciclovir] Drug Allergy 2 [facility] Repository (5 sources) Penicillins; Translations: [PENICILLINS] Drug allergy (disorder) 4 [facility] Repository (12 sources) Penicillin G Drug Allergy 3 Unknown [facility] (12 sources) Penicillins Propensity to adverse reactions 3 [facility] Medications Current Medications Medication Drug Class(es) Dates Sig (Normalized) Sig (Original) [id number] 200 actuat albuterol 0.09 mg/actuat metered dose inhaler (11 sources) beta2-Adrenergic Agonist Start: 02-29-2024 End: 03-30-2024 take 2 puff(s) by inhalation every four hours for wheezing albuterol HFA 90 mcg/act inhaler Indications: URTI (acute upper respiratory infection) , Non-recurrent acute suppurative otitis media of both ears without spontaneous rupture of tympanic membranes Inhale 2 puffs every 4 (four) hours if needed for wheezing 8.5 g 02/29/2024 Active ARIPiprazole 10 mg oral tablet (2 sources) Atypical Antipsychotic Start: 05-24-2023 take 1 tablet by mouth once daily aripiprazole 10 mg Tab 10 mg = 1 tab(s), Oral, Daily, Refills(s) 0 Start Date: 05/24/23 Status: Ordered ARIPiprazole Act ada citalopram 40 mg oral tablet (18 sources) Serotonin Reuptake Inhibitor Start: 02-29-2024 End: 08-27-2024 take 1 tablet by mouth in the morning citalopram (CeleXA) 40 MG tablet Indications: Bipolar disorder with severe depression (CMS/HCC) Take 1 tablet (40 mg) by mouth in the morning. 90 tablet 1 02/29/2024 08/27/2024 Active Start: 08-14-2023 End: 11-26-2023 take 1 tablet by mouth in the morning citalopram (CeleXA) 40 MG tablet Indications: Bipolar disorder with severe depression (CMS/HCC) Take 1 tablet (40 mg) by mouth in the morning. 90 tablet 0 08/28/2023 11/26/2023 Active Citalopram Bushnell bromide Active Cymbalta 30 mg Cap-DR (2 sources) Start: 05-24-2023 take 1 capsule by mouth once daily Cymbalta 30 mg Cap-DR = 1 cap(s), Oral, Daily, Refills(s) 0 Start Date: 05/24/23 Status: Ordered DULoxetine 60 mg delayed release oral capsule (20 sources) Serotonin and Norepinephrine Reuptake Inhibitor Start: 03-13-2024 End: 06-03-2025 take 1 capsule by mouth once daily DULoxetine (Cymbalta) [address] capsule Indications: Fibromyalgia Take 1 capsule (30 mg) by mouth Daily Do not crush or chew. 90 capsule 06/03/2024 06/03/2025 Active Start: 02-29-2024 End: 06-03-2024 take 1 capsule by mouth once daily DULoxetine (Cymbalta) [address] capsule Indications: Fibromyalgia Take 1 capsule (60 mg) by mouth Daily 30 capsule 2 06/03/2024 Active Start: 07-03-2023 End: 10-01-2023 take 1 capsule by mouth in the morning DULoxetine (Cymbalta) [address] capsule Indications: Fibromyalgia Take 1 capsule (60 mg) by mouth in the morning. 30 capsule 2 07/03/2023 10/01/2023 Active eszopiclone 1 mg oral tablet (3 sources) Start: 04-10-2024 End: 05-27-2024 take 1 tablet by mouth at bedtime eszopiclone (Lunesta) 1 MG tablet Indications: Psychophysiological insomnia Take 1 tablet (1 mg) by mouth at bedtime Take immediately before bedtime 30 tablet 2 04/10/2024 05/27/2024 Discontinued (Ineffective) ferrous sulfate 325 mg oral tablet (2 sources) Start: 04-13-2023 take 1 tablet by mouth once daily ferrous sulfate 325 mg Tab 325 mg = 1 tab(s), Oral, Daily, Refills(s) 0 Start Date: 05/24/23 Status: Ordered fexofenadine hydrochloride 180 mg oral tablet (14 sources) Histamine-1 Receptor Antagonist Start: 02-29-2024 End: 05-29-2024 take 1 tablet by mouth once daily fexofenadine (Layla Allergy) 180 MG tablet Indications: Seasonal allergies Take 1 tablet (180 mg) by mouth Daily 30 tablet 2 02/29/2024 Active Start: 06-07-2023 take 1 tablet by ayush th once daily Layla D OTC 24HR 1 tab(s), Oral, Daily, Refill(s) 0 Start Date: 06/07/23 Status: Ordered take 1 tablet by ayush th in the morning fexofenadine (Layla Allergy) 180 MG tablet Take [...] days 2 tablet 0 08/14/2023 08/28/2023 Active gabapentin 300 mg oral capsule (2 sources) Anti-epileptic Agent Start: 06-11-2024 End: 09-09-2024 take 1 capsule by mouth once daily gabapentin (Neurontin) 300 MG capsule Indications: Fibromyalgia Take 1 capsule (300 mg) by mouth Daily 30 capsule 2 06/11/2024 09/09/2024 Active hyoscyamine sulfate 0.125 mg oral tablet (11 sources) Start: 02-26-2024 take 1 tablet by mouth every six hours as needed hyoscyamine (Anaspaz,Levsin) 0.125 MG tablet Take 0.125 mg by mouth every 6 (six) hours if needed 02/26/2024 Active lactulose 667 mg/ml oral solution (4 sources) Osmotic Laxative Start: 03-06-2024 End: 03-16-2024 take 20 g by mouth at bedtime lactulose (Chronulac) 10 GM/15ML solution Indications: Constipation, unspecified constipation type Take 30 mL (20 g) by mouth in the morning and 30 mL (20 g) before bedtime. Do all this for 10 days. 600 mL 03/06/2024 03/16/2024 Active lansoprazole 30 mg delayed release oral capsule (15 sources) Proton Pump Inhibitor Start: 05-24-2023 End: 08-27-2024 take 1 capsule by mouth before mealtime lansoprazole (Prevacid) [address] capsule Indications: Gastro-esophageal reflux disease without esophagitis , Esophageal reflux Take 1 capsule (30 mg) by mouth in the morning. Take before meals. 90 capsule 1 02/29/2024 08/27/2024 Active Lansoprazole Act ada magnesium citrate 58.2 mg/ml oral solution (11 sources) Start: 02-26-2024 take 296 mL by mouth once daily [facility] Magnesium Citrate oral solution Take 296 mL by mouth Daily 02/26/2024 Active meloxicam (1 source) Nonsteroidal Anti-inflammatory Drug Meloxicam Active ondansetron 4 mg disintegrating oral tablet (11 sources) Serotonin-3 Receptor Antagonist Start: 02-26-2024 take 1 tablet by mouth every four hours as needed for nausea ondansetron ODT (Zofran-ODT) 4 MG disintegrating tablet Take 4 mg by mouth every 4 (four) hours if needed for nausea 02/26/2024 Active 24 hr oxybutynin chloride 10 mg extended release oral tablet (12 sources) Cholinergic Muscarinic Antagonist take 1 tablet by mouth every twenty-four hours in the morning oxybutynin XL (Ditropan XL) 10 MG 24 hr tablet Take 10 mg by mouth in the morning. Active pantoprazole 40 mg delayed release oral tablet (11 sources) Proton Pump Inhibitor Start: 02-29-2024 take 1 tablet by mouth once daily pantoprazole (ProtoNix) 40 MG EC tablet Indications: Gastro-esophageal reflux disease without esophagitis Take 1 tablet (40 mg) by mouth Daily 90 tablet 02/29/2024 Active pregabalin (1 source) Pregabalin Activ e sucralfate 1000 mg oral tablet (11 sources) Aluminum Complex Start: 02-26-2024 take 1 tablet by mouth every six hours as needed sucralfate (Carafate) 1 g tablet Take 1 g by mouth every 6 (six) hours if needed 02/26/2024 Active Syringe 22G X 3/4 3 ML misc (1 source) Start: 08-14-2023 End: 09-13-2023 Syringe 22G X 3/4 3 ML misc Indications: B12 deficiency 1 each every 7 (seven) days 4 each 0 08/14/2023 09/13/2023 Active 24 hr tolterodine tartrate 4 mg extended release oral capsule (14 sources) Cholinergic Muscarinic Antagonist Start: 05-24-2023 take 1 capsule by mouth once daily tolterodine LA (Detrol LA) 4 MG 24 hr capsule Indications: Overactive bladder due to prolapse of female genital organ Take 1 capsule (4 mg) by mouth Daily 90 capsule 1 02/29/2024 Active Tolterodine Tart rate ER Active vitamin b12 [...] Active zolpidem tartrate 10 mg oral tablet (13 sources) gamma-Aminobutyric Acid-ergic Agonist Start: 02-29-2024 End: 07-25-2024 zolpidem (Ambien) 10 MG tablet Indications: Psychophysiological insomnia Take 1 tablet (10 mg) by mouth as needed at bedtime for sleep 30 tablet 06/25/2024 07/25/2024 Active Start: 07-04-2023 End: 10-02-2023 zolpidem (Ambien) 10 MG tabl et Indications: Psychophysiological insomnia Take 1 tablet (10 mg) by mouth as needed at bedtime for sleep 30 tablet 2 07/04/2023 10/02/2023 Active Completed/Discontinued Medications Medication Drug Class(es) Dates Sig (Normalized) Sig (Original) polyethylene glycol 3350 38949 mg powder for oral solution (9 sources) Osmotic Laxative Start: 02-28-2024 End: 06-09-2024 polyethylene glycol, PEG, 3350 (MiraLax) 17 GM/SCOOP powder Indications: Constipation, unspecified constipation type Take 17 g by mouth Daily 578 g 2 02/28/2024 06/09/2024 Problems Active Problems Problem Classification Problem Date Documented Da te Episodic/Chronic Adjustment disorders (1 source) Stress and adjustment reaction; Translations: [Reaction to severe stress, unspecified] Onset: Chronic Administrative/social admission (1 source) Stress 03-18-2024 Episodic Anxiety disorders (2 sources) Anxiety 05-24-2023 Chronic Cardiac dysrhythmias (2 sources) Palpitations; Translations: [Palpitations] Onset: 3 Episodic Esophageal disorders (14 sources) Gastroesophageal reflux disease; Translations: [Gastro-esophageal reflux disease without esophagitis] Onset: 3 05-24-2023 Chronic Menstrual disorders (12 sources) Menorrhagia; Translations: [Excessive and frequent menstruation with regular cycle] Onset: 3 06-30-2023 Chronic Miscellaneous mental health disorders (16 sources) Psychophysiologic insomnia; Translations: [Psychophysiologic insomnia] Onset: 3 07-04-2023 Chronic Mood disorders (15 sources) Bipolar disorder; Translations: [Bipolar affective disorder, current episode depression] Onset: 3 05-24-2023 Chronic Osteoarthritis (5 sources) Primary osteoarthritis, left ankle and foot; Translations: [PRIMARY OSTEOARTHRITIS LT ANK FOOT] Onset: 2 Chronic Other acquired deformities (1 source) Contracture, left ankle; Translations: [CONTRACTURE LEFT ANKLE] Onset: 2 Chronic Other aftercare (1 source) Other usp (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; Translations: [OTH BUTTER MELTER CURRENT DRUG THERAPY] Onset: 2 Episodic Other connective tissue disease (4 sources) Pain in left foot; Translations: [PAIN IN LEFT FOOT] Onset: 2 Episodic Other diseases of bladder and urethra (13 sources) Overactive bladder; Translations: [Overactive bladder] Onset: 4 05-24-2023 Chronic Other gastrointestinal disorders (2 sources) Bariatric surgery status; Translations: [BARIATRIC SURGERY STATUS] Onset: 2 Episodic Other gastrointestinal disorders (1 source) Constipation, unspecified; Translations: [Constipation, unspecified] Onset: 4 Episodic Other lower respiratory disease (2 sources) Other forms of dyspnea; Translations: [Other forms of dyspnea] Onset: 3 Episodic Other non-traumatic joint disorders (1 source) Osteophyte, left foot; Translations: [OSTEOPHYTE LEFT FOOT] Onset: 2 Episodic Other nutritional; endocrine; and metabolic disorders (2 sources) Obesity, unspecified; Translations: [Obesity, unspecified] Onset: 3 Chronic Other nutritional; endocrine; and metabolic disorders (2 sources) Body mass index 30+ - obesity 06-07-2023 Chronic Other nutritional; endocrine; and metabolic disorders (2 sources) Obesity 05-24-2023 Chronic Peripheral and visceral atherosclerosis (3 sources) Peripheral vascular disease, unspecified; Translations: [Peripheral vascular disease] Onset: 2 05-24-2023 Chronic Prolapse of female genital organs (20 sources) Disorder of rectum; Translations: [Rectocele] Onset: 3 06-30-2023 Chronic Residual codes; unclassified (1 source) Acquired absence of other specified parts of digestive tract; Translations: [ACQ ABSENCE OTH PART DIGESTV TRACT] Onset: 2 Episodic Residual codes; unclassified (2 sources) Localized edema; Translations: [Localized edema] Onset: 3 Episodic Substance-related disorders (16 sources) Nicotine dependence, cigarettes, uncomplicated; Translations: [Nicotine dependence, unspecified, uncomplicated] Onset: 2 Chronic Systemic lupus erythematosus and connective tissue disorders (1 source) Sicca syndrome, unspecified; Translations: [Sjogren syndrome, unspecified] Onset: 4 Chronic Unclassified (4 sources) CONTACT W/AND (SUSP) EXPOS COVID-19; Translations: [CONTACT W/AND (SUSP) EXPOS COVID-19] Onset: 1 Unclassified (2 sources) 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 Unclassified (12 sources) Patient on antidepressant monitoring plan Onset: 4 08-03-2023 Past or Other Problems Problem Classification Problem Date Documented Da te Episodic/Chronic Abdominal pain (12 sources) Left upper quadrant pain; Translations: [Left upper quadrant pain] Onset: 4 Episodic Deficiency and other anemia (15 sources) Iron deficiency anemia; Translations: [Iron deficiency anemia, unspecified] Onset: 3 Episodic Epilepsy; convulsions (11 sources) Neurological finding; Translations: [Unspecified convulsions] Onset: 4 01-22-2024 Episodic Immunizations and screening for infectious disease (1 source) Contact with and (suspected) exposure to other viral communicable diseases Onset: 2 Resolved: 2 Episodic Mood disorders (12 sources) Mood disorders Onset: 4 08-03-2023 Mycoses (12 sources) Opportunistic mycosis; Translations: [Candidiasis, unspecified] Onset: 4 08-14-2023 Episodic Nutritional deficiencies (12 sources) Cobalamin deficiency; Translations: [Deficiency of other specified B group vitamins] Onset: 3 07-04-2023 Episodic Other circulatory disease (1 source) Other specified symptoms and signs involving the circulatory and respiratory systems; Translations: [OTH SPEC SX SIGNS INVLV CIRC RS] Onset: 2 Episodic Other connective tissue disease (20 sources) Fibromyalgia; Translations: [Fibromyalgia] Onset: 3 05-25-2023 Episodic Other connective tissue disease (12 sources) Plantar fasciitis of right foot; Translations: [Plantar fascial fibromatosis] Onset: 3 06-30-2023 Episodic Other gastrointestinal disorders (12 sources) History of bypass of stomach; Translations: [Bariatric surgery status] Onset: 4 08-04-2023 Episodic Other gastrointestinal disorders (15 sources) Constipation; Translations: [Constipation, unspecified] Onset: 4 02-28-2024 Episodic Other gastrointestinal disorders (11 sources) History of gastrointestinal bleed; Translations: [Personal history of other diseases of the digestive system] Onset: 4 03-06-2024 Episodic Other screening for suspected conditions (not mental disorders or infectious disease) (20 sources) Abnormal electrocardiogram [ECG] [EKG]; Translations: [Patient encounter status] Onset: 3 Episodic Other upper respiratory infections (13 sources) Acute upper respiratory infection, unspecified; Translations: [Acute upper respiratory infection] Onset: 2 Resolved: 2 Episodic Otitis media and related conditions (20 sources) Acute suppurative otitis media without spontaneous rupture of ear drum; Translations: [Acute suppurative otitis media without spontaneous rupture of ear drum, bilateral] Onset: 4 01-08-2024 Episodic Skin and subcutaneous tissue infections (12 sources) Abscess of groin; Translations: [Cutaneous abscess of groin] Onset: 4 08-15-2023 Episodic Unclassified (1 source) CONTACT W/AND (SUSP) EXPOS COVID-19; Translations: [CONTACT W/AND (SUSP) EXPOS COVID-19] Onset: 1 Results Test Name Value Interpretation Reference Range Facility SS-A/Ro Sjogrens Antibodyon 04-18-2024 SS-A/Ro Sjogrens Antibody <0.2 Normal 0.0-0.9 [facility] Comment on above: Performed By: #### S SB, SSA #### [facility] , SS-B/La Sjogrens Antibodyon 04-18-2024 SS-B/La Sjogrens Antibody <0.2 Normal 0.0-0.9 [facility] Comment on above: Result Comment: Perf ormed at: CB - [facility] [address], [place], [place] [id number] Transfer Car Operator: Hector Franco PhD, Phone: [phone] PERFORMED BY: [facility] [address] PATHOLOGIST TOLL SETTLEMENT CLERK LEAH SANFORD M.D. Performed By: #### S SB, SSA #### [facility] , Ambulatory Visit Summaryon 0 03-18-2024 Ambulatory Visit Summary Ambulatory Visit Summary TALIA MERCADO :1970 Visit Date:03/18/2024 Ambulatory Visit Instructions Your Diagnosis Constipation Left upper quadrant pain Stress Your Care Team Attending Physician - Jelani WELLER, Ron Martin Primary Care Physician - EFREM WELLER, This Is Your Medications List Contact prescribing physician if questions or concerns citalopram (CeleXA 40 mg Tab) duloxetine (Cymbalta 30 mg Cap-DR) fexofenadine-pseudoephedrine (Layla D OTC 24HR) lansoprazole (lansoprazole 30 mg Cap-DR) tolterodine (Detrol LA 4 mg Cap-ER) Procedures Performed EGD - esophagogastroduodenoscopy (02/09/2023), Gastric bypass (2019), Cystoscopy (2018), Cystoscopy (2017), Cholecystectomy, Repair of cystocele, Tubal ligation. Discharge Vitals Heart Rate (Peripheral) 85 Respiratory Rate 16 Blood Pressure 107/69 Height 165 cm Height 65 in Weight 91.6 kg Weight 201.52 lb BMI 33.65 Medications What How Much When Instructions Unchanged citalopram (CeleXA 40 mg Tab) By Mouth Every day Contact prescribing physician if questions or concerns Unchanged duloxetine (Cymbalta 30 mg Cap-DR) 1 Capsules By Mouth Every day Contact prescribing physician if questions or concerns Unchanged fexofenadine-pseudoephedrine (Layla D OTC 24HR) 1 Tablets By Mouth Every day Contact prescribing physician if questions or concerns Unchanged lansoprazole (lansoprazole 30 mg Cap-DR) 1 Capsules By Mouth Every day Contact prescribing physician if questions or concerns Unchanged tolterodine (Detrol LA 4 mg Cap-ER) 1 Capsules By Mouth Every day Contact prescribing physician if questions or concerns Allergies penicillins (Hives) Problems Ongoing - Any problem that you are currently receiving treatment for. Anxiety Bipolar disorder BMI 37.0-37.9, adult Fibromyalgia GERD (gastroesophageal reflux disease) History of gastric bypass Iron deficiency anemia Nicotine dependence Obesity Overactive bladder PVD (peripheral vascular disease) Stress Patient Survey You may receive a survey via text or e-mail asking about your office visit. Please share your experience with us by completing your survey. We appreciate your feedback and thank you for choosing us for your care. Normal [facility] Gastroenterology Office/Clin ic Noteon 03-18-2024 Gastroenterology Office/Clinic Note Gastroenterology Office/Clinic Note Chief Complaint ref by Germain for constipation, LUQ pain HPI Staff This is a 53 year old female who presents today for a referral by Germain for complaints of constipation and LUQ pain. Has had a little blood intermittently. Denies Blood Thinners. Denies GLP-1 Agonists. Denies any family history of colon cancer/polyps or IBD. Denies Dysphagia, diarrhea. Constipation: How many BM a day or a week: usually one a day, went two weeks without one. Constant? Or alternate with normal BM or diarrhea: does have some loose stools. What treatment have you tried before: miralax, milk of mag, lactulose. Abdominal pain: When did you first have this pain: 3-4 weeks ago. Quality (sharp, dull): feels bruised Constant or comes or go: comes and goes, tums help. location and radiation: LUQ pain. Relation to food: Yes, certain foods. history of gastric bypass in 2019. Colonoscopy w/ Dr Duarte 07/19/23 Postoperative diagnosis: redundant colon w/ Sigmoid diverticulosis CT Abd/pelv 02/26/24 IMPRESSION: 1. No acute or suspicious findings to account for patient's symptoms. 2. Distal colon mild diverticulosis. Labs 02/26/24 White Blood Count 5.6 Red Blood Count 3.99 Hemoglobin 12.7 Hematocrit 37.7 Mean Corpuscular Volume 94.5 Mean Corpuscular Hemoglobin 31.8 Mean Corpuscular HGB Conc 33.7 Red Cell Distribution Width 12.3 Platelet Count 264 Calcium 8.7 Bilirubin Total 0.3 Aspartate Amino Transferase 16 Alanine Aminotransferase 22 Alkaline Phosphatase 98 Total Protein 6.6 Albumin Level 3.6 Globulin 3.0 Albumin Globulin Ratio 1.2 History of Present Illness I have reviewed HPI staff note, most recent labs and imaging, more than 30 minutes spent reviewing the chart, during encounter, placing orders and counseling the patient. pt with pain in the left lower abd and abd pain pain was bad in the epigastric area tums helped Bowels are back to normal was having some stress Review of Systems PHQ Score Initial Depression Screen Score: 0 SCORE All systems reviewed, negative except as mentioned above Physical Exam Vitals & Measurements HR: 85(Peripheral) RR: 16 BP: 107/69 HT: 65 in HT: 165 cm WT: 91.6 kg WT: 201.52 lb BMI: 33.65 General: alert, no acute distress HEENT: atraumatic normocephalic Cardiovascular: regular rate and rhythm, normal peripheral perfusion Respiratory: Lungs CTA, respirations non labored Extremities: no deformity, no trauma Abdomen: Benign, soft, nontender nondistended Assessment/Plan 1. Constipation (K59.00: Constipation, unspecified) 2. Left upper quadrant pain (R10.12: Left upper quadrant pain) 3. Stress (F43.9: Reaction to severe stress, unspecified) Advised to get stress under good control Advised to get squatty potty massage the colon Advised to consume prunes and kiwi fruits Continue MiraLAX and titrate to have 1-2 bowel movements every day Advised to do sitz bath's twice a day Advised to continue to use Tums as needed Follow-up No qualifying data available Problem List/Past Medical History Ongoing Anxiety Bipolar disorder BMI 37.0-37.9, adult Fibromyalgia GERD (gastroesophageal reflux disease) History of gastric bypass Iron deficiency anemia Nicotine dependence Obesity Overactive bladder PVD (peripheral vascular disease) Stress Historical No qualifying data Procedure/Surgical History EGD - esophagogastroduodenoscopy (02/09/2023), Gastric bypass (2019), Cystoscopy (2018), Cystoscopy (2017), Cholecystectomy, Repair of cystocele, Tubal ligation. Medications Layla D OTC 24HR, 1 tab(s), Oral, Daily CeleXA 40 mg Tab, Oral, Daily Cymbalta 30 mg Cap-DR, 1 cap(s), Oral, Daily Detrol LA 4 mg Cap-ER, 4 mg= 1 cap(s), Oral, Daily lansoprazole 30 mg Cap-DR, 30 mg= 1 cap(s), Oral, Daily Allergies penicillins (Hives) Social History Alcohol - Denies Alcohol Use, 06/07/2023 Substance Abuse - Denies Substance Abuse, 06/07/2023 Tobacco 10 or more cigarettes (1/2 pack or more)/day in last 30 days Tobacco Use:., 03/18/2024 10 or more cigarettes (1/2 pack or more)/day in last 30 days Tobacco Use:. Former smokeless tobacco user, quit more than 30 days ago Smokeless Tobacco Use:. Cigarettes, Vaping, 1.5 per day. Started age 16.0 Years. Yes, 06/07/2023 Family History Diabetes mellitus type 2: Mother, Father and Sister. Heart disease: Father. Immunizations Vaccine Date Status Comments influenza virus vaccine, inactivated - Not Given Patient Refuses [facility] Comment on above: Result Comment: Elec tronically Signed By: Jelani WELLER, Ron Martin\.br\Date and Time Signed: 03/18/24 15:21 EDT Outside Colonoscopyon 2023 Outside Colonoscopy [id number]#[id number] [facility] Reminderson 07-20-2023 Reminders - From: Machelle Arauz LPN To: N - Clinical; Sent: 07/20/2023 10:55:11 EST Show up: 06/19/2033 07:00:00 EST Subject: colonoscopy recall Due Date/Time: 07/19/2033 07:00:00 EST Reminder/Recall Patient due for screening colonoscopy 07/19/2033. [facility] Lab Reportson 06-26-2023 Lab Reports [id number]#[id number] [facility] Insurance Correspondenceon 1 08-09-2022 Insurance Correspondence [id number]#[id number] [facility] Facesheeton 06-08-2023 Facesheet [id number] Normal [facility] Physician Referralon 023 Physician Referral [id number]#1.00TIFF Normal [facility] Ambulatory Visit Summaryon 1 08-07-2022 Ambulatory [...] for choosing us for your care. Normal [facility] Lab Reportson 05-31-2023 Lab Reports [id number]#[id number] [facility] Consultation Noteon 05-25-20 23 Consultation Note [id number]#1.00TIFF [facility] Physician Referralon 023 Physician Referral [id number]#1.00TIFF [facility] Office Visiton 04-07-2023 Follow-up visit [id number] Norma Mercado 1970 Date Provider Department Center 04/07/2023 [id number] SHAH Family History Problem Relation Age of Onset Brain Aneurysm Mother 80 Diabetes Mother Heart failure Father 80 Diabetes Father Hypertension Father Diabetes Sister Family Status - Relation Status Age at Mother Father Sister Level of Service:48198 UT OFFICE/OUTPATIENT ESTABLISHED MOD MDM 30-39 MIN Normal [facility] 36on 02-08-2023 36 [facility] lab called to re port critical HGB and hematocrit for patient: HGB was 5.1 and hematocrit is 18.9. I spoke with Talia and advised she go to the ED. She verbalized understanding and will do so. Normal [facility] Office Visiton 02-08-2023 Follow-up visit [id number] Norma Mercado 1970 Provider Department Center 02/08/2023 [id number] SHAH Family History Problem Relation Age of Onset Brain Aneurysm Mother 80 Diabetes Mother Heart failure Father 80 Diabetes Father Hypertension Father Diabetes Sister Family Status - Relation Status Age at Mother Father Sister Level of Service:51169 UT OFFICE/OUTPATIENT NEW MODERATE MDM 45-59 MINUTES Reason for Visit and Comments: Establish Care [42] - Swelling in both legs,right leg is itching and painful Shortness of Breath [591044] Dizziness [639432] Fatigue [46] Normal [facility] PREG HCG QUALon 03-10-2022 , QUAL Negative Normal NEGATIVE [facility] Comment on above: Performed By: #### P REG ####[facility] [address] [place], [place] [address]CuDr. Moni Johnson Covid-19 PCR (CVDTB)on 02-21 SARS-CoV-2 (COVID-19) RNA EMMANUEL+probe Ql (Unsp spec) Not detected Normal NOT DETECTED [facility] Comment on above: Result Comment: This test is not yet approved or cleared by the [place] FDA. When there are no FDA-approved or cleared tests available, and other criteria are met, FDA can make tests available under an emergency access mechanism called an Emergency Use Authorization (EUA). The EUA for this test is supported by the [place] of Health and Human Service's (HHS's) declaration [...] SARS-CoV-2. Performed By: #### C VDTBH #### [facility] [address] [place], [place] [address] Dr. Moni Johnson PROF CHEM 8 (BAS METB)on Anion gap [Moles/Vol] 9.0 mmol/L Normal [facility] Comment on above: Performed By: #### B MP ####[facility] [address] [place], [place] [address]UlDr. Moni Johnson Calcium [Mass/Vol] 8.3 mg/dL Critically low 8.5-10.1 [facility] Comment on above: Performed By: #### B MP ####[facility] [address] [place] [address]Dr. Moni Johnson Chloride [Moles/Vol] 106 mmol/L Normal 98-107 [facility] Comment on above: Performed By: #### B MP ####[facility] [address] [place] [id number]. Moni Johnson CO2 [Moles/Vol] 29.2 mmol/L Normal 21.0-32.0 [facility] Comment on above: Performed By: #### B MP ####[facility] [address] [place] [address]Dr. Moni Johnson Creatinine [Mass/Vol] 0.78 mg/dL Normal 0.55-1.02 [facility] Comment on above: Performed By: #### B MP ####[facility] [address] [place] [address]Dr. Moni Johnson EGFR-AF LIBYAN >60 Normal >=60 [facility] Comment on above: Performed By: #### B MP ####[facility] [address] [place] [address]Dr. Moni Johnson EGFR-NON AF LIBYAN >60 Normal >=60 [facility] Comment on above: Performed By: #### B MP ####[facility] [address] [place], [place] [address]Dr. Moni Johnson Glucose [Mass/Vol] 88 mg/dL Normal 74-106 [facility] Comment on above: Performed By: #### B MP ####[facility] [address] [place] [address]Dr. Moni Johnson Potassium [Moles/Vol] 4.2 mmol/L Normal 3.5-5.1 [facility] Comment on above: Performed By: #### B MP ####[facility] [address] [place] [address]Dr. Moni Johnson Sodium [Moles/Vol] 140 mmol/L Normal 136-145 [facility] Comment on above: Performed By: #### B MP ####[facility] [address] [place], [place] [address]Qg. Moni Johnson Urea nitrogen [Mass/Vol] 21.0 mg/dL Critically high 7.0-18.0 [facility] Comment on above: Performed By: #### B MP ####[facility] [address] [place], [place] [address]Ne. Moni Johnson Urea nitrogen/Creatinin e [Mass ratio] 26.9 mg/mg Normal [facility] Comment on above: Performed By: #### B MP ####[facility] [address] [place], [place] [address]. Mon[address] FOOT LT WO CONon [...] ELLIOT JOSE Date: 2022-02-22 18:32 Normal [facility] COVID Quick Testingon 2021 Result Negative [facility] Quick Fluon 08-30-2021 FLUAV Ab CF (S) [Titer] Negative [facility] FLUBV Ab CF (S) [Titer] Negative [facility] Covid-19 PCR ([facility])on 11-1 5-2021 SARS-CoV-2 (COVID-19) RNA EMMANUEL+probe Ql (Unsp spec) Not detected Normal NOT DETECTED [facility] Comment on above: Result Comment: This test is not yet approved or cleared by the [place] FDA. When there are no FDA-approved or cleared tests available, and other criteria are met, FDA can make tests available under an emergency access mechanism called an Emergency Use Authorization (EUA). The EUA for this test is supported by the [place] of Health and Human Service's (HHS's) declaration [...] consistent with SARS-CoV-2. Performed By: #### [facility] #### [facility] [address] [place] [address] Dr. Moni Johnson Vital Signs Date Time Vital Sign Value Performing Clinician Facility 04-10-2024 15:56-0400 Body height 165.1 cm Valerie Groves [employer] Work Phone: [facility] 04-10-2024 15:56-0400 Body mass index (BMI) [Ratio] 33.61 kg/m2 Valerie Blackburnk [employer] Work Phone: [facility] 04-10-2024 15:56-0400 Body temperature 98.29 [degF] Valerie Groves [employer] Work Phone: [facility] 04-10-2024 15:56-0400 Body weight 91.63 kg Valerie Mathurtrick [employer] Work Phone: [facility] 04-10-2024 15:56-0400 Diastolic blood pressure 68 mm[Hg] Valerie Blackburnk [employer] Work Phone: [facility] 04-10-2024 15:56-0400 Heart rate 67 /min Valerie Groves [employer] Work Phone: [facility] Comment on above: 98% O2 04-10-2024 15:56-0400 Systolic blood pressure 100 mm[Hg] Valerie Groves [employer] Work Phone: [facility] 03-18-2024 15:06-0400 Blood Pressure Location [employer] [facility] 03-18-2024 15:06-0400 Diastolic blood pressure 69 mm[Hg] [employer] [facility] 03-18-2024 15:06-0400 Heart rate 85 /min [employer] [facility] 03-18-2024 15:06-0400 Respiratory rate 16 /min [employer] [facility] 03-18-2024 15:06-0400 Systolic blood pressure 107 mm[Hg] [employer] [facility] 03-12-2024 15:46-0400 Body height 165.1 cm Valerie Groves [employer] Work Phone: [facility] 03-12-2024 15:46-0400 Body mass index (BMI) [Ratio] 33.28 kg/m2 Valerie Groves [employer] Work Phone: [facility] 03-12-2024 15:46-0400 Body temperature 98.01 [degF] Valerie Groves [employer] Work Phone: [facility] 03-12-2024 15:46-0400 Body weight 90.72 kg Valerie Groves [employer] Work Phone: [facility] 03-12-2024 15:46-0400 Diastolic blood pressure 70 mm[Hg] Valerie Nolanpatrick [employer] Work Phone: [facility] 03-12-2024 15:46-0400 Heart rate 71 /min Valerie Brittonzpatrick [employer] Work Phone: [facility] Comment on above: 99% O2 03-12-2024 15:46-0400 Systolic blood pressure 100 mm[Hg] Valerie Brittonzpatrick [employer] Work Phone: [facility] 06-07-2023 16:03-0500 Blood Pressure Location Segun NILL [facility] 06-07-2023 16:03-0500 Diastolic blood pressure 88 mm[Hg] Segun NILL [facility] [place] 06-07-2023 16:03-0500 Heart rate 72 /min Segun NILL [facility] [place] 06-07-2023 16:03-0500 Respiratory rate 16 /min Segun NILL [facility] [place] 06-07-2023 16:03-0500 Systolic blood pressure 130 mm[Hg] Segun NILL [facility] [place] 08-30-2021 13:00-0500 Body height 165.1 cm Kristin Ginty Other [facility] 08-30-2021 13:00-0500 Body mass index (BMI) [Ratio] 30.95 kg/m2 Kristin Ginty Other [facility] 08-30-2021 13:00-0500 Body temperature 98 [degF] Kristin Ginty Other [facility] 08-30-2021 13:00-0500 Body weight 84.37 kg Kristin Ginty Other [facility] 08-30-2021 13:00-0500 Respiratory rate 16 /min Kristin Quintana Other [facility] 08-30-2021 13:00-0500 SaO2% (BldA) [Mass fraction] 98 % Kristin Quintana Other [facility] Encounters Encounter Date Encounter Type Care Provider Facility Start: 06-25-2024 End: 06-25-2024 Refill Valerie Groves [employer] Work Phone: [facility] Comment on above: Psychophysiological insomnia Start: 06-11-2024 End: 06-11-2024 Orders Only Valerie Groves [employer] Work Phone: [facility] Comment on above: Fibromyalgia (Primar y Dx) Start: 06-03-2024 End: 06-03-2024 Refill Valerie Groves [employer] Work Phone: [facility] Comment on above: Fibromyalgia Start: 05-27-2024 End: 05-27-2024 Orders Only Valerie Groves [employer] Work Phone: [facility] Comment on above: Psychophysiological insomnia (Primary Dx) Start: 04-18-2024 End: 04-18-2024 Patient encounter procedure MD Tyson Collazo Work Phone: [facility] [address] Work Phone: Start: 04-18-2024 End: 04-18-2024 ambulatory Tyson Collazo [facility] Work Phone: Start: 04-10-2024 End: 04-10-2024 Office outpatient visit 15 minutes Valerie Groves [employer] Work Phone: [facility] Comment on above: Psychophysiological insomnia (Primary Dx); Fibromyalgia; Constipation, unspecified constipation type Start: 04-10-2024 End: 04-10-2024 ambulatory VALERIE GROVES Not Available Start: 04-10-2024 End: 04-10-2024 Bamboo flowsheet Valerie Groves [employer] Work Phone: [facility] Start: 04-10-2024 End: 04-10-2024 Bamboo flowsheet Valerie Groves [employer] Work Phone: [facility] Start: 03-18-2024 End: 03-18-2024 ambulatory Ron Palomares Facility:[facility] Start: 03-18-2024 End: 03-18-2024 Patient encounter procedure Ron Palomares [facility] Start: 03-13-2024 End: 03-13-2024 Refill Valerie Groves [employer] Work Phone: [facility] Comment on above: Fibromyalgia (Primar y Dx) Start: 03-12-2024 End: 03-12-2024 Office outpatient visit 15 minutes Valerie Groves [employer] Work Phone: [facility] Comment on above: Constipation, unspec ified constipation type (Primary Dx); Fibromyalgia Start: 03-12-2024 End: 03-12-2024 ambulatory VALERIE GROVES Not Available Start: 03-12-2024 End: 03-12-2024 Bamboo flowsheet Valerie Groves [employer] Work Phone: [facility] Start: 03-12-2024 End: 03-12-2024 Bamboo flowsheet Valerie Groves [employer] Work Phone: [facility] Start: 03-07-2024 ambulatory Ron Palomares Facilit y:[facility] Start: 03-06-2024 End: 03-06-2024 ambulatory VALERIE GROVES Not Available Start: 02-28-2024 End: 02-28-2024 ambulatory VALERIE MATHURTRICK Not Available Start: 02-26-2024 Non-patient / Non-visit MD Roel Collazo Work Phone: [facility] Work Phone: Start: 01-22-2024 End: 01-22-2024 ambulatory BUNN FAWWAD Not Available Start: 01-08-2024 End: 01-08-2024 ambulatory BUNN FAWWAD Not Available Start: 11-13-2023 End: 11-13-2023 ambulatory BUNN FAWWAD Not Available Start: 08-25-2023 Refill Shaikh Efrem WELLER Work Phone: [facility] Comment on above: Bipolar disorder wit h severe depression ([facility] Start: 08-14-2023 End: 08-14-2023 ambulatory BUNN FAWWAD Not Available Start: 08-03-2023 End: 08-03-2023 ambulatory BUNN FAWWAD Not Available Start: 07-19-2023 End: 07-19-2023 ambulatory Segun R MONTSEL Facility:CD:[id number] Start: 07-04-2023 End: 07-04-2023 ambulatory BUNN FAWWAD Not Available Start: 06-07-2023 End: 06-07-2023 ambulatory Segun R NILL [facility] Start: 06-07-2023 End: 06-07-2023 Patient encounter procedure Segun R NILL [facility] [place] Start: 06-05-2023 ambulatory Ron Palomares Facilit y:[facility] Start: 05-18-2023 ambulatory Mohamad Modania Facilit y:[facility] Start: 04-07-2023 End: 04-07-2023 ambulatory [facility] Start: 02-08-2023 ambulatory [facility] Start: 05-31-2022 End: 06-01-[address] TAMIKO NETTLES Facility:[facility] Start: 05-10-2022 End: 05-11-[address] ELLIOT JOSE Facility:[facility] Start: 04-19-2022 End: 04-20-2022 ambulatory MICHAEL DSOUZA Facility:[facility] Start: 03-29-2022 End: 03-30-2022 ambulatory MICHAEL DSOUZA Facility:[facility] Start: 03-10-2022 End: 03-10-2022 ambulatory [facility] Start: 03-07-2022 Encounter for prepro cedural cardiovascular examination [facility] Start: 03-07-2022 Encounter for prepro cedural laboratory examination [facility] Start: 03-03-2022 End: 03-04-2022 ambulatory [facility] Facility:[facility] Start: 03-03-2022 End: 03-04-2022 Encounter for preprocedural laboratory examination [facility] Letitia [facility] Facility:[facility] Start: 02-22-2022 End: 02-23-2022 ambulatory TAWANA Dong [facility] Facility:[facility] Start: 02-09-2022 End: 02-10-2022 ambulatory TAWANA Dong [facility] Facility:[facility] Start: 08-30-2021 End: 08-30-2021 ambulatory Kristin Ginty Other [facility] Start: 08-30-2021 Office outpatient vi sit 15 minutes Kristin Ginty [facility] Jose Carlos Start: 06-07-2021 End: 06-07-[address] GRISELDA SCOTT Facility:[facility] Start: 11-14-2018 End: 11-15-2018 Patient encounter procedure DEFAULT PHYSICIAN Facility:[facility] Procedures Date Procedure Procedure Detail Performing Clinician Start: 07-19-2023 Colonoscopy Shaikh Sahil whitney MD Work Phone: Start: 02-09-2023 Esophagogastroduodenoscopy Segun DUARTE Start: 07-24-2019 Bypass of stomach Wagner indra DUARTE Start: 07-24-2018 Transurethral cystoscopy Segun DUARTE Start: 07-24-2017 Transurethral cystoscopy Segun DUARTE Cholecystectomy Segun DUARTE Ligation of fallopian tube Lashaun DUARTE Repair of cystocele Segun DUARTE Plan of Treatment Date Care Activity Detail Author Start: 07-19-2033 Screening for malign ant neoplasm of colon [facility] Start: 07-31-2024 End: 07-31-2024 Patient encounter procedure 07/31/2024 5:30 PM EST Office Visit [facility] [address] [place] [phone] Valerie Groves NP [address] [place] [address] [facility] Start: 07-10-2024 End: 07-10-2024 Patient encounter procedure 07/10/2024 4:30 PM EST Office Visit [facility] [address] [place] [address] Valerie Groves NP [address] [place] [address] [facility] Start: 06-05-2024 End: 06-05-2024 Patient encounter procedure 06/05/2024 5:30 PM EST Office Visit [facility] [address] [place] [address] Valerie Groves NP [address] [place] [address] [facility] Start: 04-10-2024 End: 04-10-2024 [facility] Ar[facility] Start: 03-24-2024 Influenza vaccination Influenz a Vaccine (#1) [facility] Start: 03-12-2024 End: 03-12-2024 Patient encounter procedure 03/12/2024 3:30 PM EDT Office Visit [facility] [address] [place] [phone] Valerie Groves NP [address] [place] [address] Arrived [facility] Comment on above: Arrived Start: 11-13-2023 End: 11-13-2023 Patient encounter procedure 11/13/2023 4:45 PM EDT Office Visit [facility] [address] [place] [address] Shaikh Main MD [address] [place] [phone] [facility] Start: 03-24-2023 Influenza vaccination Influenz a Vaccine (#1) [facility] Start: 2011 Screening for malign ant neoplasm of breast Mammogram [facility] Start: 2001 Screening for malign ant neoplasm of cervix [facility] Start: 1992 Screening for malign ant neoplasm of cervix Pap Smear [facility] Start: 1971 Screening for malign ant neoplasm of colon [facility] Sjogrens syndrome-A extractable nuclear Ab [Units/volume] in [facility] Sjogrens syndrome-B extractable nuclear Ab [Units/volume] in [facility] Immunizations Immunization Date Immunization Notes Care Provider Fa cility NEGATED: Highlighted row has not occurred!06-07-2023 influenza virus vaccine, unspecified formulation Segun DUARTE [facility] [place] Payers Date Payer Category Payer Self-pay 2009 Managed Care O (unspecified) [id number] 1971 Unknown [id number] 2.16.840.1.103975.3.579.2.647 1971 Unknown [id number] 2.16.84 0.1.466416.3.579.2.593 1971 Unknown [id number] 2.16.84 0.1.907132.3.579.2.593 1971 Unknown [id number] 2.16.84 0.1.169353.3.579.2.593 1971 Unknown [id number] 2.16.84 0.1.937969.3.579.2.593 1971 Unknown [id number] 2.16.84 0.1.048908.3.579.2.593 1971 Unknown [id number] 2.16.84 0.1.505170.3.579.2.593 1971 Unknown [id number] 2.16.84 0.1.785111.3.579.2.593 1971 Unknown [id number] 2.16.84 0.1.259685.3.579.2.593 1971 Unknown [id number] 2.16.84 0.1.627380.3.579.2.593 1971 Unknown [id number] 2.16.840.1.750786.3.579.2.727 1971 Unknown [id number] 2.16.840.1.349241.3.579.2.727 1971 Unknown [id number] 2.16.840.1.733048.3.579.2.727 1971 Unknown [id number] 2.16.840.1.366211.3.579.2.727 1971 Unknown [id number] 2.16.840.1.370321.3.579.2.727 1971 Unknown [id number] 2.16.840.1.875755.3.579.2.1259 1971 Unknown [id number] 2.16.840.1.846068.3.579.2.9 1971 Unknown [id number] 2.16.840.1.342545.3.579.2.1258 1971 Unknown [id number] 2.16.840.1.671067.3.579.2.1258 1971 Unknown [id number] 2.16.840.1.146621.3.579.2.1258 1971 Unknown [id number] 2.16.840.1.860876.3.579.2.1258 1971 Unknown [id number] 2.16.840.1.064748.3.579.2.1258 1971 Unknown [id number] 2.16.840.1.926132.3.579.2.1258 1971 Unknown [id number] 2.16.840.1.130141.3.579.2.1258 1971 Unknown [id number] 2.16.840 .1.242318.3.579.2.9 1959 Private Health Insurance [id number] 2.16.840.1.552351.19 Unknown Unknown [id number] 2.16.840.1.491612.3.579.2.531 Social History Date Type Detail Facility Unknown if ever smoked [facility] Start: 08-07-2023 End: 04-10-2024 Sex Assigned At [facility] Start: 06-07-2023 End: 03-18-2024 Tobacco smoking status Heavy tobacco smoker (finding) [facility] Tobacco smoking status Former sm okeless tobacco user, quit more than 30 days ago [facility] Start: 07-24-1985 End: 01-08-2024 Tobacco smoking status OHIS Smokes tobacco daily [facility] Start: 07-24-1985 History of tobacco use Cigarette Smo ker [facility] Start: 07-04-2023 End: 08-07-2023 Cigarettes smoked current (pack per day) - Reported 1 [facility] Start: 07-04-2023 End: 01-08-2024 Tobacco use and exposure Smokeless tobacco non-user [facility] Start: 08-14-2023 End: 04-10-2024 Alcohol intake Lifetime non-drinker (finding) [facility] Within the last year [...] Start: 07-04-2023 Tobacco Comment Thinking about quitting [facility] Start: 07-04-2023 Alcohol Comment caffeine: 3-4 cups per day [facility] Start: 1970 Sex Assigned At Not on file [facility] Start: 1970 Sex Assigned At Female F [facility] History of tobacco use Passive smoker [facility] Goals Date Patient Goal Desired Activity /State Personal health goal Functional Status Date Assessment Result Facility 03-18-2024 Functional Status N/A [facility] 06-07-2023 Functional Status N/A [facility] Clinical Notes 08-30-2021 to 06-03-2024 Telephone Encounter - Mar Powers MA - 06/03/2024 9:10 AM ESTTelephone Encounter - Mar Powers MA - 06/03/2024 9:10 AM ESTTelephone Encounter - Nupur Oneal - 06/03/2024 8:50 AM EST Note Date & Type Note Facility 06-03-2024 Telephone encounter Note Pt takes the 60mg in morning and 30 mg in the afternoon, so both. [facility] 06-03-2024 Miscellaneous Notes Pt takes the 60mg in morning and 30 mg in the afternoon, so both. Patient is asking for a 90 day supply. Patient said 60 mg were denied. documented in this encounter [facility] 06-03-2024 Telephone encounter Note Patient is asking for a 90 day supply. Patient said 60 mg were denied. [facility] 04-10-2024 History of Present illness Narrative Associated Problem(s): Fibromyalgia Repots aches/pain all over her body. She reports her skin is very sensitive to touch. Chronic diagnosis. She was previously on Lyrica - gained weight on it. Stopped using it because of that. She is currently on Cymbalta 60 mg with mild improvement improvement in her symptoms. She also reports intermittent swelling/arthritis of her joints - small or large with no specific aggravating/relieving factors. Intermittent pruritic rash over her chest and neck No Fhx of AI disease - work up for underlying auto immune disorder unremarkable. Seeing Rheumatology on 04/18 Associated Problem(s): Constipation aw GI- no new orders or imaging. Pt states she has now having regular BM's at least once per day. Abdominal pain has since resolved. Associated Problem(s): Psychophysiological insomnia Ambien no longer effective. Will trial Lunesta Images from the original note were not included. Subjective Patient ID: Talia Mercado is a 54 y.o. female who presents for Follow-up. HPI 1 month follow up for constipation and LUQ pain. Saw GI- no new orders or imaging. Pt states she has now having regular BM's at least once per day. Abdominal pain has since resolved. Fibromyalgia- Is still taking 60mg Cymbalta QAM 30mg Cymbalta at bedtime Still feels achy and exhausted Is seeing Rheumatology on 04/18 Ambien 10mg Is not effective nay longer; Reports falls asleep quickly but cannot stay asleep. Review of Systems Constitutional: Negative for activity change, appetite change, chills, diaphoresis, fatigue, fever and unexpected weight change. HENT: Negative for congestion, ear pain, rhinorrhea, sinus pressure, sinus pain, sneezing, sore throat, trouble swallowing and voice change. Eyes: Negative for visual disturbance. Respiratory: Negative for cough, chest tightness, shortness of breath and wheezing. Cardiovascular: Negative for chest pain, palpitations and leg swelling. Gastrointestinal: Negative for abdominal distention, abdominal pain, blood in stool, constipation, diarrhea and vomiting. Genitourinary: Negative for decreased urine volume, dysuria, flank pain, frequency, hematuria and urgency. Musculoskeletal: Negative for arthralgias, gait problem, joint swelling and myalgias. Skin: Negative for rash. Neurological: Negative for dizziness, tremors, syncope, weakness, light-headedness and headaches. Psychiatric/Behavioral: Positive for sleep disturbance. Negative for decreased concentration and suicidal ideas. The patient is not nervous/anxious. Hematological: Does not bruise/bleed easily. Endocrine: Negative for cold intolerance, heat intolerance, polydipsia, polyphagia and polyuria. Objective Physical Exam Vitals reviewed. Constitutional: Appearance: Normal appearance. HENT: Head: Normocephalic and atraumatic. Right Ear: Tympanic membrane normal. Left Ear: Tympanic membrane normal. Nose: Nose normal. Mouth/Throat: Mouth: Mucous membranes are moist. Pharynx: Oropharynx is clear. Eyes: Pupils: Pupils are equal, round, and reactive to light. Cardiovascular: Rate and Rhythm: Normal rate and regular rhythm. Pulses: Normal pulses. Heart sounds: Normal heart sounds. Pulmonary: Effort: Pulmonary effort is normal. Breath sounds: Normal breath sounds. Abdominal: General: Abdomen is flat. Bowel sounds are normal. Palpations: Abdomen is soft. Musculoskeletal: General: Normal range of motion. Cervical back: Normal range of motion. Skin: General: Skin is warm and dry. Capillary Refill: Capillary refill takes less than 2 seconds. Neurological: General: No focal deficit present. Mental Status: She is alert and oriented to person, place, and time. Psychiatric: Mood and Affect: Mood normal. Behavior: Behavior normal. Assessment/Plan Problem List Items Addressed This Visit Fibromyalgia Repots aches/pain all over her body. She reports her skin is very sensitive to touch. Chronic diagnosis. She was previously on Lyrica - gained weight on it. Stopped using it because of that. She is currently on Cymbalta 60 mg with mild improvement improvement in her symptoms. She also reports intermittent swelling/arthritis of her joints - small or large with no specific aggravating/relieving factors. Intermittent pruritic rash over her chest and neck No Fhx of AI disease - work up for underlying auto immune disorder unremarkable. Seeing Rheumatology on 04/18 Psychophysiological insomnia - Primary Ambien no longer effective. Will trial Lunesta Relevant Medications eszopiclone (Lunesta) 1 MG tablet Constipation aw GI- no new orders or imaging. Pt states she has now having regular BM's at least once per day. Abdominal pain has since resolved. documented in this encounter [facility] 03-13-2024 History of Present illness Narrative Associated Problem(s): Constipation Has had 3 BM's. Continue taking Miralax as needed. Follow up with GI next week. Associated Problem(s): Fibromyalgia Repots aches/pain all over her body. She reports her skin is very sensitive to touch. Chronic diagnosis. She was previously on Lyrica - gained weight on it. Stopped using it because of that. She is currently on Cymbalta 60 mg with mild improvement improvement in her symptoms. She also reports intermittent swelling/arthritis of her joints - small or large with no specific aggravating/relieving factors. Intermittent pruritic rash over her chest and neck No Fhx of AI disease - work up for underlying auto immune disorder unremarkable. Images from the original note were not included. Subjective Patient ID: Talia Mercado is a 53 y.o. female who presents for Follow-up (CONSTIPATION, PT HAS HAD THREE BM'S SINCE LAST VISIT. PT IS STILL HAVING ABDOMINAL PAIN. PT SCHEDULED TO SEE GI DESTREHAN ON 03/18 AT 1500. ). HPI IS here today for one week follow-up for constipation. Prescrivbed lacutlose at last visit-did not picker/puller. Went on vacation to in [facility] in [place] for the weekend and had X3 BM's. Denies blood in stool. States she has been stressed recentlty and feels being away heloped her relax and she was finally able to pass BM. Sees GI in [place] on Sunday 03/18 @ 3pm. Still has abdominal discomfort in LUQ. Review of Systems Constitutional: Negative for activity change, appetite change, chills, diaphoresis, fatigue, fever and unexpected weight change. Eyes: Negative for visual disturbance. Respiratory: Negative for cough, chest tightness, shortness of breath and wheezing. Cardiovascular: Negative for chest pain, palpitations and leg swelling. Gastrointestinal: Positive for abdominal distention and abdominal pain. Negative for blood in stool, constipation, diarrhea and vomiting. Genitourinary: Negative for decreased urine volume, dysuria, flank pain, frequency, hematuria and urgency. Musculoskeletal: Negative for arthralgias, gait problem, joint swelling and myalgias. Skin: Negative for rash. Neurological: Negative for dizziness, tremors, syncope, weakness, light-headedness and headaches. Psychiatric/Behavioral: Negative for decreased concentration and suicidal ideas. The patient is not nervous/anxious. Hematological: Does not bruise/bleed easily. Objective Physical Exam Vitals reviewed. Constitutional: Appearance: Normal appearance. HENT: Head: Normocephalic and atraumatic. Right Ear: Tympanic membrane normal. Left Ear: Tympanic membrane normal. Nose: Nose normal. Mouth/Throat: Mouth: Mucous membranes are moist. Pharynx: Oropharynx is clear. Eyes: Pupils: Pupils are equal, round, and reactive to light. Cardiovascular: Rate and Rhythm: Normal rate and regular rhythm. Pulses: Normal pulses. Heart sounds: Normal heart sounds. Pulmonary: Effort: Pulmonary effort is normal. Breath sounds: Normal breath sounds. Abdominal: General: Bowel sounds are decreased. Palpations: Abdomen is soft. Tenderness: There is abdominal tenderness. Musculoskeletal: General: Normal range of motion. Cervical back: Normal range of motion. Skin: General: Skin is warm and dry. Capillary Refill: Capillary refill takes less than 2 seconds. Neurological: General: No focal deficit present. Mental Status: She is alert and oriented to person, place, and time. Psychiatric: Mood and Affect: Mood normal. Behavior: Behavior normal. Assessment/Plan Problem List Items Addressed This Visit Fibromyalgia Repots aches/pain all over her body. She reports her skin is very sensitive to touch. Chronic diagnosis. She was previously on Lyrica - gained weight on it. Stopped using it because of that. She is currently on Cymbalta 60 mg with mild improvement improvement in her symptoms. She also reports intermittent swelling/arthritis of her joints - small or large with no specific aggravating/relieving factors. Intermittent pruritic rash over her chest and neck No Fhx of AI disease - work up for underlying auto immune disorder unremarkable. Constipation - Primary Has had 3 BM's. Continue taking Miralax as needed. Follow up with GI next week. documented in this encounter [facility] 03-12-2024 Instructions Valerie Groves NP - 03/12/2024 3:30 PM EDT Referral sent to Rheumatology- Dr. Muller in [place], [place]- they will call you! Have mammogram completed. Call if you need anything! documented in this encounter [facility] 06-07-2023 Note Chief Complaint consultation for colonoscopy [facility] Staff 53 year old female [...] fibromyalgia, referred for severe anemia, admitted to [facility] in January with hb of 5; [...] Cap-DR, 30 mg= (more content not included)... [facility] Comment on above: Result Comment: Elec tronically Signed By: AMIE WELLER, Segun [email or web address].meena\Date and Time Signed: 06/07/23 17:17 EST 06-07-2023 Evaluation + Plan note Diagnostic Tests PendingIron Level 06/07/23Ferritin 06/07/23Vitamin B12 Level 06/07/23 General Surgery [email or web address] 04-07-2023 Note Cardiology Clinic No te Subjective [...] -Resolved, likely exacerbated (more content not included)... [facility] 04-07-2023 Note Patient here for 2 [...] All other systems reviewed and are negative. [facility] 02-08-2023 Note Cardiovascular Medic [facility] SUBJECTIVE Chief Complaint Patient presents [...] 6 weeks (around 03/22/2023). Ronen Berg APRN-[facility] Cardiovascular Medicine [facility] 05-31-2022 Note PROCEDURE: XR FOOT L [...] by: TAMIKO NETTLES Date: 2022-05-31 20:30 [facility] 05-11-2022 Note PROCEDURE: XR FOOT L [...] by: ELLIOT JOSE Date: 2022-05-11 16:14 [facility] 04-19-2022 Note PROCEDURE: XR FOOT L [...] by: TAMIKO NETTLES Date: 2022-04-19 18:16 [facility] 03-30-2022 Note PROCEDURE: XR FOOT L [...] by: TAMIKO NETTLES Date: 2022-03-30 06:41 [facility] 03-11-2022 Note PROCEDURE: XR FOOT L [...] authenticated by: ELLIOT JOSE Date: 2022-03-11 08:26 [facility] 03-11-2022 Note PROCEDURE: XR FOOT L T 2V HISTORY: Pain COMPARISON: XR foot left 02/09/2022 FINDINGS: BONES:Multiple intraoperative images demonstrate mechanical fusion of the second and third tarsal-metatarsal joints. SOFT TISSUES:Expected intraoperative findings. EFFUSION:None visible. OTHER: Negative. IMPRESSION: 1. Mechanical fusion of second and third tarsal-metatarsal joints. Electronically authenticated by: ELLIOT JOSE Date: 2022-03-11 07:55 [facility] 02-10-2022 Note PROCEDURE: XR FOOT L T MIN 3 VIEWS COMPARISON: 12/15/2020 HISTORY: Pain FINDINGS: BONES:No acute fracture or dislocation. Stable moderate degenerative changes most significant at the tarsometatarsal joints. Moderate plantar enthesopathic spurring of the calcaneus SOFT TISSUES:Negative. No visible soft tissue swelling. EFFUSION:None visible. OTHER: Negative. IMPRESSION: Stable moderate degenerative changes Electronically authenticated by: TAMIKO NETTLES Date: 2022-02-10 07:37 [facility] 08-30-2021 Evaluation note Encounter Date Diagnosis [...] Patient care instructions given in writting by [facility] Care At Home document [facility] Other Evaluation note* Diagnosis Bipolar disorder with severe depression (CMS/HCC) documented in this encounter [facility] HealthcareEvaluation noteNo assessment information availableThe [facility] Work Phone: Evaluation note* Diagnosis Breast screening- Primary Breast screening, unspecified Bipolar disorder, in full remission, most recent episode depressed (CMS/HCC) Psychophysiological insomnia Persistent disorder of initiating or maintaining sleep B12 deficiency Fibromyalgia Unspecified myalgia and myositis Screening mammogram for breast cancer Bipolar disorder, current episode depressed, severe, without psychotic features (CMS/HCC) Psychophysiological insomnia Persistent disorder of initiating or maintaining sleep Fibromyalgia Unspecified myalgia and myositis Iron deficiency anemia secondary to inadequate dietary iron intake B12 deficiency B12 deficiency- Primary Bipolar disorder, current episode depressed, severe, without psychotic features (CMS/HCC) Psychophysiological insomnia Persistent disorder of initiating or maintaining sleep Iron deficiency anemia secondary to inadequate dietary iron intake URTI (acute upper respiratory infection) Acute upper respiratory infections of unspecified site Antibiotic-induced yeast infection Cutaneous abscess of groin B12 deficiency- Primary Psychophysiological insomnia Persistent disorder of initiating or maintaining sleep Iron deficiency anemia secondary to inadequate dietary iron intake History of gastric bypass Bipolar disorder with severe depression (CMS/HCC) Encounter for screening mammogram for breast cancer- Primary Screening for diabetes mellitus Seizure-like activity (CMS/HCC) Fluid level behind tympanic membrane of both ears Constipation, unspecified constipation type- Primary Constipation, unspecified constipation type- Primary History of GI bleed LUQ abdominal pain Abdominal pain, left upper quadrant Constipation, unspecified constipation type- Primary Fibromyalgia Unspecified myalgia and myositis Psychophysiological insomnia- Primary Persistent disorder of initiating or maintaining sleep Fibromyalgia Unspecified myalgia and myositis Constipation, unspecified constipation type Psychophysiological insomnia- Primary Persistent disorder of initiating or maintaining sleep documented in this encounter [facility]* Diagnosis Breast screening- Primary Breast screening, unspecified Bipolar disorder, in full remission, most recent episode depressed (CMS/HCC) Psychophysiological insomnia Persistent disorder of initiating or maintaining sleep B12 deficiency Fibromyalgia Unspecified myalgia and myositis Screening mammogram for breast cancer Bipolar disorder, current episode depressed, severe, without psychotic features (CMS/HCC) Psychophysiological insomnia Persistent disorder of initiating or maintaining sleep Fibromyalgia Unspecified myalgia and myositis Iron deficiency anemia secondary to inadequate dietary iron intake B12 deficiency B12 deficiency- Primary Bipolar disorder, current episode depressed, severe, without psychotic features (CMS/HCC) Psychophysiological insomnia Persistent disorder of initiating or maintaining sleep Iron deficiency anemia secondary to inadequate dietary iron intake URTI (acute upper respiratory infection) Acute upper respiratory infections of unspecified site Antibiotic-induced yeast infection Cutaneous abscess of groin B12 deficiency- Primary Psychophysiological insomnia Persistent disorder of initiating or maintaining sleep Iron deficiency anemia secondary to inadequate dietary iron intake History of gastric bypass Bipolar disorder with severe depression (CMS/HCC) Encounter for screening mammogram for breast cancer- Primary Screening for diabetes mellitus Seizure-like activity ([facility]/HCC) Fluid level behind tympanic membrane of both ears Constipation, unspecified constipation type- Primary Constipation, unspecified constipation type- Primary History of GI bleed LUQ abdominal pain Abdominal pain, left upper quadrant Constipation, unspecified constipation type- Primary Fibromyalgia Unspecified myalgia and myositis Psychophysiological insomnia- Primary Persistent disorder of initiating or maintaining sleep Fibromyalgia Unspecified myalgia and myositis Constipation, unspecified constipation type Fibromyalgia Unspecified myalgia and myositis documented in this encounter [facility]* Diagnosis Breast screening- Primary Breast screening, unspecified Bipolar disorder, in full remission, most recent episode depressed (CMS/HCC) Psychophysiological insomnia Persistent disorder of initiating or maintaining sleep B12 deficiency Fibromyalgia Unspecified myalgia and myositis Screening mammogram for breast cancer Bipolar disorder, current episode depressed, severe, without psychotic features (CMS/HCC) Psychophysiological insomnia Persistent disorder of initiating or maintaining sleep Fibromyalgia Unspecified myalgia and myositis Iron deficiency anemia secondary to inadequate dietary iron intake B12 deficiency B12 deficiency- Primary Bipolar disorder, current episode depressed, severe, without psychotic features (CMS/HCC) Psychophysiological insomnia Persistent disorder of initiating or maintaining sleep Iron deficiency anemia secondary to inadequate dietary iron intake URTI (acute upper respiratory infection) Acute upper respiratory infections of unspecified site Antibiotic-induced yeast infection Cutaneous abscess of groin B12 deficiency- Primary Psychophysiological insomnia Persistent disorder of initiating or maintaining sleep Iron deficiency anemia secondary to inadequate dietary iron intake History of gastric bypass Bipolar disorder with severe depression (CMS/HCC) Encounter for screening mammogram for breast cancer- Primary Screening for diabetes mellitus Seizure-like activity (CMS/HCC) Fluid level behind tympanic membrane of both ears Constipation, unspecified constipation type- Primary Constipation, unspecified constipation type- Primary History of GI bleed LUQ abdominal pain Abdominal pain, left upper quadrant Constipation, unspecified constipation type- Primary Fibromyalgia Unspecified myalgia and myositis Psychophysiological insomnia- Primary Persistent disorder of initiating or maintaining sleep Fibromyalgia Unspecified myalgia and myositis Constipation, unspecified constipation type Fibromyalgia- Primary Unspecified myalgia and myositis documented in this encounter [facility]* Diagnosis Breast screening- Primary Breast screening, unspecified Bipolar disorder, in full remission, most recent episode depressed (CMS/HCC) Psychophysiological insomnia Persistent disorder of initiating or maintaining sleep B12 deficiency Fibromyalgia Unspecified myalgia and myositis Screening mammogram for breast cancer Bipolar disorder, current episode depressed, severe, without psychotic features (CMS/HCC) Psychophysiological insomnia Persistent disorder of initiating or maintaining sleep Fibromyalgia Unspecified myalgia and myositis Iron deficiency anemia secondary to inadequate dietary iron intake B12 deficiency B12 deficiency- Primary Bipolar disorder, current episode depressed, severe, without psychotic features (CMS/HCC) Psychophysiological insomnia Persistent disorder of initiating or maintaining sleep Iron deficiency anemia secondary to inadequate dietary iron intake URTI (acute upper respiratory infection) Acute upper respiratory infections of unspecified site Antibiotic-induced yeast infection Cutaneous abscess of groin B12 deficiency- Primary Psychophysiological insomnia Persistent disorder of initiating or maintaining sleep Iron deficiency anemia secondary to inadequate dietary iron intake History of gastric bypass Bipolar disorder with severe depression (CMS/HCC) Encounter for screening mammogram for breast cancer- Primary Screening for diabetes mellitus Seizure-like activity (CMS/HCC) Fluid level behind tympanic membrane of both ears Constipation, unspecified constipation type- Primary Constipation, unspecified constipation type- Primary History of GI bleed LUQ abdominal pain Abdominal pain, left upper quadrant Constipation, unspecified constipation type- Primary Fibromyalgia Unspecified myalgia and myositis Psychophysiological insomnia- Primary Persistent disorder of initiating or maintaining sleep Fibromyalgia Unspecified myalgia and myositis Constipation, unspecified constipation type Psychophysiological insomnia Persistent disorder of initiating or maintaining sleep documented in this encounter [facility]* Diagnosis Fibromyalgia- Primary Unspecified myalgia and myositis documented in this encounter [facility]* Diagnosis Constipation, unspecified constipation type- Primary Fibromyalgia Unspecified myalgia and myositis documented in this encounter [facility]* Diagnosis Psychophysiological insomnia- Primary Persistent disorder of initiating or maintaining sleep Fibromyalgia Unspecified myalgia and myositis Constipation, unspecified constipation type documented [facility] this encounter [facility] general Narrative - Reported* Type Description Date Medical History anxiety Medical History GERD [facility] Hospital course Narrative No data available for this section General Surgery [email or web address] Hospital Discharge instructions No data available for this section General Surgery [facility] Progress note No data available for this section General Surgery [facility] Reason for referral (narrative)* Consultation (Routine) - Pending Review Specialty Diagnoses / Procedures Referred By Carlos white Referred To Contact Rheumatology Diagnoses Fibromyalgia Procedures [place] OFFICE/OUTPATIENT [facility] 60 MINUTES Valerie Groves NP [address] [place] [phone] Tyson Collazo MD [address] [place] [address] Referral ID Status Reason Start Date Expiration Date Visits Requested Visits Authorized [id number] Pending Review Specialty Services Required 03/13/2024 09/09/2024 1 1 Scheduling Instructions Please include OV note from today And labs from 07/28/2023 [facility] Summary Purpose Family History Relationship Condition Age at Onset Recorded Date/T arlet father Diabetes mellitus Unknown History of stroke Unknown Hypertension Unknown Heart disease Unknown Unknown mother Unknown Diabetes mellitus Unknown Advance Directives Advance Directive Response Recorded Date/ Time Advance Directives No March 1:42pm Additional Source Comments INFORMATION SOURCE (unrecogn ized section and content) DATE CREATED AUTHOR 11/16/2018 [facility] DATE CREATED AUTHOR AUTHOR'S ORGANIZ ATION 06/05/2022 [facility] DATE CREATED AUTHOR AUTHOR'S ORGANIZ ATION 04/09/2023 [facility] DATE CREATED AUTHOR AUTHOR'S ORGANIZ ATION 03/20/2024 Conrad [facility] DATE CREATED AUTHOR AUTHOR'S ORGANIZ ATION 04/13/2024 [facility] DATE CREATED AUTHOR AUTHOR'S ORGANIZ ATION 04/29/2024 [facility] REASON FOR VISIT (unrecogniz ed section and content) Reason Comments Med Refill Reason Onset Date Comments Med Refill 06/03/2024 Reason Onset Date Comments Med Refill 06/25/2024 Reason Comments Follow-up CONSTIPATION, PT HAS HAD THREE BM'S SINCE LAST VISIT. PT IS STILL HAVING ABDOMINAL PAIN. PT SCHEDULED TO SEE GUDELIA VINNYWILLIAMS ON 03/18 AT 1500. 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 Relationship Specialty Start Date End Date Shaikh Main MD PCP - General Internal Medicine 04/20/23 Team Status: Active Member Role Status Dates Conrad Ahn DO Attending Provider Active Sta rt: February 26, 2024 Team Status: Inactive Member Role Status Dates Tyson Collazo MD Attending Provider Active St art: April 18, 2024 End: April 18, 2024 [employer] Ch[employer] Operator Relationship Specialty Start Date End Date Molina De Anda MD [address] [place] [address] PCP - General Family Medicine 02/21/24 Valerie Groves NP [address] [place] [address] Nurse Practitioner Family Medicine 02/21/24 [employer] Ch[employer] Operator Relationship Specialty Start Date End Date Molina De Anda MD [address] [place] [address] PCP - General Family Medicine 02/21/24 Valerie Groves NP [address] [place] [address] Nurse Practitioner Family Medicine 02/21/24 [employer]inc Chloride Operator Relationship Specialty Start Date End Date Molina De Anda MD [address] [place] [phone] PCP - General Family Medicine 02/21/24 Valerie Groves NP [address] [place] [address] Nurse Practitioner Family Medicine 02/21/24 [employer]inc Ch[employer] Operator Relationship Specialty Start Date End Date Molina De Anda MD [address] [place] [phone] PCP - General Family Medicine 02/21/24 Valerie Groves NP [address] [place] [address] Nurse Practitioner Family Medicine 02/21/24 [employer]inc Chlor[employer] Operator Relationship Specialty Start Date End Date Molina De Anda MD [address] [place] [address] PCP - General Family Medicine 02/21/24 Valerie Groves NP [address] [place] [phone] Nurse Practitioner Family Medicine 02/21/24 [employer]inc Chloride Operator Relationship Specialty Start Date End Date Molina De Anda MD [address] [place] [phone] PCP - General Family Medicine 02/21/24 Valerie Groves NP [address] [place] [phone] Nurse Practitioner Family Medicine 02/21/24 [employer]inc Chlor[employer] Operator Relationship Specialty Start Date End Date Molina De Anda MD [address] [place] [phone] PCP - General Family Medicine 02/21/24 Valerie Groves NP [address] [place] [phone] Nurse Practitioner Family Medicine 02/21/24 [employer]inc Chlor[employer] Operator Relationship Specialty Start Date End Date Molina De Anda MD [address] [place] [phone] PCP - General Family Medicine 02/21/24 Valerie Groves NP [address] [place] [phone] Nurse Practitioner Family Medicine 02/21/24 Goals (unrecognized section and content) Goals may be documented in a n alternate section FOR RECORDS PERTAINING TO PATIENTS WHO ARE [...] BE BASED ON THE PRIMARY CLINICAL RECORDS. [facility] provides no warranty or guarantee of the accuracy or completeness of information in this document.
[2024-08-01 14:48] LABS: Basophils Percent Auto 0.6 % (0.2-2.0); Hematocrit 37.4 % (36.0-48.0); Hemoglobin 12.1 g/dL (12.0-16.0); Immature Granulocytes Abs Auto 0.01 10^3/uL (0.00-0.03); Immature Granulocytes Pct Auto 0.2 % (0.0-0.5); Lymphocytes Absolute Auto 1.1 10^3/uL (1.2-3.8); Lymphocytes Percent Auto 19.9 % (20.5-60.0); Mean Corpuscular HGB Conc 32.4 g/dL (29.9-35.2); Mean Corpuscular Hemoglobin 29.4 pg (26.7-34.0); Mean Platelet Volume 9.7 fL (9.5-13.5); Monocytes Absolute Auto 0.2 10^3/uL (0.3-0.8); Monocytes Percent Auto 4.2 % (1.7-12.0); Neutrophils Absolute Auto 4.1 10^3/uL (1.4-6.5); Neutrophils Percent Auto 75.1 % (43.0-75.0); Platelet Count 256 10^3/uL (150-450); Red Blood Count 4.11 10^6/uL (4.20-5.40); Red Cell Distribution Width 13.6 % (11.0-15.0); White Blood Count 5.4 10^3/uL (4.0-11.0)
[2024-08-01 16:10] LABS: Percent Iron Saturation 6.8 %
[2024-08-02 04:08] LABS: Vitamin B12 205 pg/mL (232-1245)
[2024-08-02 05:08] LABS: Transferrin 333 mg/dL (192-364)
== END 2024-08-01 14:22 | disposition home or self-care (01) ==
LOC: LAB 14:23
DX: D50.8 Other iron deficiency anemias (principal); S39.012A Strain of muscle, fascia and tendon of lower back, initial encounter; X50.1XXA Overexertion from prolonged static or awkward postures, initial encounter; Z90.49 Acquired absence of other specified parts of digestive tract; Z98.84 Bariatric surgery status; F17.200 Nicotine dependence, unspecified, uncomplicated
CPT/HCPCS: 36415; 72100; 82607; 82728; 83540; 83550; 84466; 85025; J1885; J2360

== ENCOUNTER 2024-09-04 15:52 | Outpatient (OUT) | payer OTHER, SELFPAY ==
--- NOTE | 2024-09-04 | XR_ITS ---
The [address] [address] Patient Name: KALYN RUTHERFORD MRN: [id number] date: 1970 Sex: F Assigned Patient Location: Current Patient Location: Accession/Order Number: [id number] Exam Date: 09/04/2024 15:53 Report Date: 09/05/2024 10:16 At the request of: TAWANA FOSTER Procedure: XR foot LT min 3V PROCEDURE: XR foot LT min 3V HISTORY: LEFT FOOT PAIN COMPARISON: XR foot left 05/31/2022 . FINDINGS: BONES:Prior mechanical fusion of the second third tarsal-metatarsal joints; no appreciable hardware fracture loosening. Large calcaneal plantar spur. Moderate flattening of the plantar arch. No bone fracture, dislocation, or lesion SOFT TISSUES:No visible soft tissue swelling. EFFUSION:None visible. OTHER: Negative. XR/XR foot LT min 3V IMPRESSION: 1. Stable surgical changes without is of hardware failure or change in alignment. 2. Moderate pes planus and large calcaneal plantar spur; unchanged. Electronically authenticated by: ELLIOT JOSE Date: 09/05/2024 10:16
--- OUTSIDE RECORDS SUMMARY | 2024-09-04 16:13 | XMS_ITS | CCD ---
Author Organization [facility] Care Team Providers Care Mobility Architect Name Role Phone PHYSICIAN, DEFAULT Admitting Unavailable PHYSICIAN, DEFAULT Attending Unavailable TYLER, GRISELDA Primary Care Unavailable Kristin Quintana Unavailable MICHAEL DSOUZA Admitting Unavailable MEET, MICHAEL Attending Unavailable TYLER, DR VILLALOBOS Primary Care Unavailable RMOMEL, DR TAMIKO Dickens Consulting Unavailable MEET, MICHAEL Consulting Unavailable MEET, MICHAEL Admitting Unavailable MEET, MICHAEL Attending Unavailable TYLER, DR VILLALOBOS Primary Care Unavailable ROMMEL, DR TAMIKO Dickens Consulting Unavailable MEET, MICHAEL [...] LUU Consulting Unavailable JUNGSADE, REBECCA Consulting Unavailable ROMMEL, DR TAMIKO Dickens Consulting Unavailable TYLER, DR VILLALOBOS Primary Care Unavailable MEET, MICHAEL Attending Unavailable MEET, MICHAEL Admitting Unavailable MEET, MICHAEL Consulting Unavailable HOUSE, DR VILLALOBOS Admitting Unavailable HOUSE, DR VILLALOBOS Attending Unavailable HOUSE, DR VILLALOBOS Primary Care Unavailable HOUSE, DR VILLALOBOS Consulting Unavailable HIGHLSHAMIKA, TAWANA Dong Admitting Unavailable HIGHLANDER, TAWANA Dong Attending Unavailable HOUSE, DR VILLALOBOS Primary Care Unavailable ROMMEL, DR TAMIKO Dickens Consulting Unavailable HIGHLSHAMIKA, TAWANA Dong Consulting Unavailable HIGHLANDER, TAWANA Dong Admitting Unavailable HIGHLANDER, TAWANA Dong Attending Unavailable HOUSE, DR VILLALOBOS Primary Care Unavailable DR ELLIOT JOSE Consulting Unavailable TAWANA FOSTER Consulting Unavailable CAROL BERG Attending Unavailable CAROL BERG Attending Unavailable SHAIKH MAIN Primary Care Physician Shaikh Main MD Primary Care Provider Ron Palomares Attending Unavailable Segun DUARTE Attending Unavailable Segun DUARTE Attending Unavailable MD Tyson Collazo Attending Provider [phone] Tyson Collazo Attending Unavailable Tyson Collazo Admitting Unavailable Molina De Anda MD Primary Care Provider Germain CAMARGO, Angel Luis Unavailable [phone] SHAIKH MAIN Attending Unavailable SHAIKH MAIN Attending Unavailable SHAIKH MAIN Attending Unavailable EFREM, Attending Unavailable GROVES, ANGEL LUIS Attending Unavailabl e GROVES, ANGEL LUIS Attending Unavailabl e GROVES, ANGEL LUIS Attending Unavailabl e GROVES, ANGEL LUIS Attending Unavailabl e GROVES, ANGEL LUIS Attending Unavailabl e PASCALE ARANA Attending Unavailable Allergies Allergy Classification Reported Allergen(s) Allergy Type Date of Onset Reaction(s) Facility (2 sources) penciclovir; Translations: [penciclovir] Drug Allergy 2 [facility] Repository (5 sources) Penicillins; Translations: [PENICILLINS] Drug allergy (disorder) [address] [facility] Repository (20 sources) Penicillin G Drug Allergy 3 Unknown [facility] (20 sources) Penicillins Propensity to adverse reactions 3 [facility] Medications Current Medications Medication Drug Class(es) Dates Sig (Normalized) Sig (Original) [id number] 200 actuat albuterol 0.09 mg/actuat metered dose inhaler (20 sources) beta2-Adrenergic Agonist Start: 02-29-2024 End: 03-30-2024 [...] Date: 05/24/23 Status: Ordered ARIPiprazole Act ada azithromycin 250 mg oral tablet (5 sources) Macrolide Antimicrobial Start: 08-12-2024 azithromycin (Zithromax) 250 MG tablet Indications: Acute non-recurrent maxillary sinusitis 2 pills day #1, 1 pill day #2-#5 6 tablet 08/12/2024 Active citalopram 40 mg oral tablet (20 sources) Serotonin Reuptake Inhibitor Start: 02-29-2024 End: 08-27-2024 take 1 tablet by mouth in the morning citalopram (CeleXA) 40 MG tablet Indications: Bipolar disorder with severe depression (CMS/HCC) Take 1 tablet (40 mg) by mouth in the morning. 90 tablet 1 02/29/2024 Active Start: 08-14-2023 End: 11-26-2023 take 1 tablet by mouth in the morning citalopram (CeleXA) 40 MG tablet Indications: Bipolar disorder with severe depression (CMS/HCC) Take 1 tablet (40 mg) by mouth in the morning. 90 tablet 0 08/28/2023 11/26/2023 Active Citalopram [place] bromide Active Cymbalta 30 mg Cap-DR (2 sources) Start: 05-24-2023 take 1 capsule by mouth once daily Cymbalta 30 mg Cap-DR = 1 cap(s), Oral, Daily, Refills(s) 0 Start Date: 05/24/23 Status: Ordered DULoxetine 60 mg delayed release oral capsule (20 sources) Serotonin and Norepinephrine Reuptake Inhibitor Start: 08-28-2024 take 1 capsule by mouth once daily DULoxetine (Cymbalta) [address] capsule Indications: Fibromyalgia TAKE 1 CAPSULE BY MOUTH ONCE A DAY *DO NOT CRUSH OR CHEW* 90 capsule 08/28/2024 Active Start: 02-05-2025 take 1 capsule by mo [facility] once daily DULoxetine (Cymbalta) [address] capsule Indications: Fibromyalgia TAKE 1 CAPSULE BY MOUTH EVERY DAY 90 capsule 08/28/2024 Active Start: 03-13-2024 End: 06-03-2025 take 1 capsule by mouth once daily DULoxetine (Cymbalta) [address] capsule Indications: Fibromyalgia Take 1 capsule (30 mg) by mouth Daily Do not crush or chew. 90 capsule 06/03/2024 08/28/2024 Discontinued Start: 02-29-2024 End: 08-28-2024 take 1 capsule by mouth once daily DULoxetine (Cymbalta) [address] capsule Indications: Fibromyalgia Take 1 capsule (60 mg) by mouth Daily 30 capsule 2 06/03/2024 08/28/2024 Discontinued Start: 07-03-2023 End: 10-01-2023 take 1 capsule [...] Ordered fexofenadine hydrochloride 180 mg oral tablet (20 sources) Histamine-1 Receptor Antagonist Start: 02-29-2024 End: 05-29-2024 take 1 tablet by mouth once daily fexofenadine (Layla Allergy) 180 MG tablet Indications: Seasonal allergies Take 1 tablet (180 mg) by mouth Daily 30 tablet 2 02/29/2024 Active Start: 06-07-2023 take 1 tablet by ayush once daily Layla D OTC 24HR 1 [...] days 2 tablet 0 08/14/2023 08/28/2023 Active fluticasone propionate 0.05 mg/actuat metered dose nasal spray (5 sources) Corticosteroid Start: 08-12-2024 End: 09-11-2024 take 2 spray(s) nasal route once daily fluticasone (Flonase) 50 MCG/ACT nasal spray Indications: Environmental and seasonal allergies Administer 2 sprays into each nostril Daily Shake gently. Before first use, prime pump. After use, clean tip and replace cap. 16 g 2 08/12/2024 09/11/2024 Active gabapentin 300 mg oral capsule (16 sources) Anti-epileptic Agent Start: 06-11-2024 End: 11-12-2024 take 1 capsule by mouth in the morning gabapentin (Neurontin) 300 MG capsule Indications: Fibromyalgia Take 1 capsule (300 mg) by mouth in the morning and 1 capsule (300 mg) before bedtime. 60 capsule 2 08/14/2024 11/12/2024 Active lactulose 667 mg/ml oral solution (4 [...] lansoprazole 30 mg delayed release oral capsule (20 sources) Proton Pump Inhibitor Start: 05-24-2023 End: 08-27-2024 take 1 capsule by mouth before mealtime lansoprazole (Prevacid) [address] capsule Indications: Gastro-esophageal reflux disease without esophagitis , Esophageal reflux Take 1 capsule (30 mg) by mouth in the morning. Take before meals. 90 capsule 1 02/29/2024 Active Lansoprazole Act ada meloxicam (1 source) Nonsteroidal Anti-inflammatory Drug Meloxicam Active phentermine hydrochloride 37.5 mg oral tablet (10 sources) Sympathomimetic Amine Anorectic Start: 025 End: 025 take 1 tablet by mouth before mealtime phentermine (Adipex-P) 37.5 MG tablet Indications: BMI 34.0-34.9,adult Take 1 tablet (37.5 mg) by mouth in the morning. Take before meals. 30 tablet 07/31/2024 08/30/2024 Active pregabalin (1 source) Pregabalin Activ e Syringe 22G X 3/4 3 ML misc (1 source) Start: 024 End: Syringe 22G X 3/4 3 ML misc Indications: B12 deficiency 1 each every 7 (seven) days 4 each 0 08/14/2023 09/13/2023 Active 24 hr tolterodine tartrate 4 mg extended release oral capsule (20 sources) Cholinergic Muscarinic Antagonist Start: 023 take 1 capsule by mouth once daily [...] Active zolpidem tartrate 10 mg oral tablet (20 sources) gamma-Aminobutyric Acid-ergic Agonist Start: 07-29-2024 End: 11-26-2024 zolpidem (Ambien) 10 MG tablet Indications: Psychophysiological insomnia Take 1 tablet (10 mg) by mouth as needed at bedtime for sleep Do not start before August 28, 2024. 30 tablet 2 08/28/2024 11/26/2024 Active Start: 02-29-2024 End: 07-25-2024 zolpidem (Ambien) 10 MG tabl et Indications: Psychophysiological insomnia Take 1 tablet (10 mg) by mouth as needed at bedtime for sleep 30 tablet 06/25/2024 07/25/2024 Discontinued (Reorder) Start: 07-04-2023 End: 10-02-2023 zolpidem (Ambien) 10 MG tabl et Indications: Psychophysiological insomnia Take 1 tablet (10 mg) by mouth as needed at bedtime for sleep 30 tablet 2 07/04/2023 10/02/2023 Active Completed/Discontinued Medications Medication Drug Class(es) Dates Sig (Normalized) Sig (Original) hyoscyamine sulfate 0.125 mg oral tablet (20 sources) Start: 02-26-2024 End: 08-12-2024 take 1 tablet by mouth every six hours as needed hyoscyamine (Anaspaz,Levsin) 0.125 MG tablet Take 0.125 mg by mouth every 6 (six) hours if needed 02/26/2024 08/12/2024 Discontinued (Therapy completed) magnesium citrate 58.2 mg/ml oral solution (20 sources) Start: 02-26-2024 End: 08-12-2024 take 296 mL by mouth once daily [facility] Magnesium Citrate oral solution Take 296 mL by mouth Daily 02/26/2024 08/12/2024 Discontinued (Therapy completed) ondansetron 4 mg disintegrating oral tablet (20 sources) Serotonin-3 Receptor Antagonist Start: 02-26-2024 End: 08-12-2024 take 1 tablet by mouth every four hours as needed for nausea ondansetron ODT (Zofran-ODT) 4 MG disintegrating tablet Take 4 mg by mouth every 4 (four) hours if needed for nausea 02/26/2024 08/12/2024 Discontinued (Therapy completed) 24 hr oxybutynin chloride 10 mg extended release oral tablet (20 sources) Cholinergic Muscarinic Antagonist End: 08-12-2024 take 1 tablet by mouth every twenty-four hours in the morning oxybutynin XL (Ditropan XL) 10 MG 24 hr tablet Take 10 mg by mouth in the morning. 08/12/2024 Discontinued (Therapy completed) pantoprazole 40 mg delayed release oral tablet (20 sources) Proton Pump Inhibitor Start: 02-29-2024 End: 08-12-2024 take 1 tablet by mouth once daily pantoprazole (ProtoNix) 40 MG EC tablet Indications: Gastro-esophageal reflux disease without esophagitis Take 1 tablet (40 mg) by mouth Daily 90 tablet 02/29/2024 08/12/2024 Discontinued (Therapy completed) polyethylene glycol 3350 64241 mg powder for oral solution (9 sources) Osmotic Laxative Start: 02-28-2024 End: 06-09-2024 polyethylene glycol, PEG, 3350 (MiraLax) 17 GM/SCOOP powder Indications: Constipation, unspecified constipation type Take 17 g by mouth Daily 578 g 2 02/28/2024 06/09/2024 sucralfate 1000 mg oral tablet (20 sources) Aluminum Complex Start: 02-26-2024 End: 08-12-2024 take 1 tablet by mouth every six hours as needed sucralfate (Carafate) 1 g tablet Take 1 g by mouth every 6 (six) hours if needed 02/26/2024 08/12/2024 Discontinued (Therapy completed) Problems Active Problems Problem Classification Problem Date Documented Da te Episodic/Chronic Adjustment disorders (6 sources) Stress and adjustment reaction; Translations: [Reaction to severe stress, unspecified] Onset: 4 Chronic Administrative/social admission (6 sources) Stress; Translations: [Finding relating to psychosocial functioning] Onset: 5 03-18-2024 Episodic Anxiety disorders (2 sources) Anxiety 05-24-2023 Chronic Cardiac dysrhythmias (2 sources) Palpitations; Translations: [Palpitations] Onset: 3 Episodic Deficiency and other anemia (2 sources) Iron deficiency anemia secondary to inadequate dietary iron intake; Translations: [Other iron deficiency anemias] 07-31-2024 Episodic Esophageal disorders (20 sources) Gastroesophageal reflux disease; Translations: [Gastro-esophageal reflux disease without esophagitis] Onset: 3 05-24-2023 Chronic Headache; including migraine (5 sources) Menstrual status migrainosus; Translations: [Menstrual migraine, not intractable, with status migrainosus] Onset: 5 08-12-2024 Chronic Malaise and fatigue (5 sources) Malaise and fatigue; Translations: [Other malaise] Onset: 5 08-12-2024 Episodic Menstrual disorders (20 sources) Menorrhagia; Translations: [Excessive and frequent menstruation with regular cycle] Onset: 3 06-30-2023 Chronic Miscellaneous mental health disorders (20 sources) Psychophysiologic insomnia; Translations: [Psychophysiologic insomnia] Onset: 3 07-04-2023 Chronic Mood disorders (20 sources) Bipolar disorder; Translations: [Bipolar affective disorder, current episode depression] Onset: 3 05-24-2023 Chronic Osteoarthritis (5 sources) Primary osteoarthritis, left ankle and foot; Translations: [PRIMARY OSTEOARTHRITIS LT ANK FOOT] Onset: 2 Chronic Other acquired deformities (1 source) Contracture, left ankle; Translations: [CONTRACTURE LEFT ANKLE] Onset: 2 Chronic Other aftercare (1 source) Other [facility] (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; Translations: [OTH [facility] CURRENT DRUG THERAPY] Onset: 2 Episodic Other connective tissue disease (4 sources) Pain in left foot; Translations: [PAIN IN LEFT FOOT] Onset: 2 Episodic Other connective tissue disease (20 sources) Fibromyalgia; Translations: [Fibromyalgia] Onset: 3 05-25-2023 Episodic Other diseases of bladder and urethra (20 sources) Overactive bladder; Translations: [Overactive bladder] Onset: 4 05-24-2023 Chronic Other diseases of bladder and urethra (5 sources) Detrusor overactivity; Translations: [Overactive bladder] Onset: 5 08-12-2024 Chronic Other female genital disorders (5 sources) Female genital organ symptoms; Translations: [Unspecified condition associated with female genital organs and menstrual cycle] Onset: 5 08-12-2024 Episodic Other gastrointestinal disorders (2 sources) Bariatric surgery [...] Chronic Other nutritional; endocrine; and metabolic disorders (16 sources) Body mass index 30+ - obesity; Translations: [Body mass index (BMI) 34.0-34.9, adult] Onset: 5 06-07-2023 Chronic Other nutritional; endocrine; and metabolic disorders (2 sources) Obesity 05-24-2023 Chronic Other nutritional; endocrine; and metabolic disorders (7 sources) Obesity caused by energy imbalance; Translations: [Class 1 obesity due to excess calories without serious comorbidity in adult, unspecified BMI] Onset: 5 08-12-2024 Chronic Other upper respiratory disease (7 sources) Allergic disposition; Translations: [Other allergic rhinitis] Onset: 5 08-12-2024 Chronic Other upper respiratory infections (20 sources) Acute upper respiratory infection, unspecified; Translations: [Acute upper respiratory infection] Onset: 2 Resolved: 2 Episodic Peripheral and visceral atherosclerosis (3 sources) Peripheral [...] 3 Episodic Skin and subcutaneous tissue infections (20 sources) Abscess of groin; Translations: [Cutaneous abscess of groin] Onset: 4 08-15-2023 Episodic Substance-related disorders (20 sources) Nicotine dependence, cigarettes, uncomplicated; Translations: [Nicotine dependence, unspecified, uncomplicated] Onset: 2 Chronic Systemic lupus erythematosus and connective tissue disorders (1 source) Sicca syndrome, unspecified; Translations: [Sjogren syndrome, unspecified] Onset: 4 Chronic Unclassified (4 sources) CONTACT W/AND (SUSP) EXPOS COVID-19; Translations: [CONTACT W/AND (SUSP) EXPOS COVID-19] Onset: 1 Unclassified (2 sources) 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 Unclassified (20 sources) Patient on antidepressant monitoring plan Onset: 4 08-03-2023 Past or Other Problems Problem Classification Problem Date Documented Da te Episodic/Chronic Abdominal pain (20 sources) Left upper quadrant pain; Translations: [Left upper quadrant pain] Onset: 4 Episodic Deficiency and other anemia (20 sources) Iron deficiency anemia; Translations: [Iron deficiency anemia, unspecified] Onset: 3 Episodic Epilepsy; convulsions (20 sources) Neurological finding; Translations: [Unspecified convulsions] Onset: 4 01-22-2024 Episodic Immunizations and screening for infectious disease (1 source) Contact with and (suspected) exposure to other viral communicable diseases Onset: 2 Resolved: 2 Episodic Mood disorders (20 sources) Mood disorders Onset: 4 08-03-2023 Mycoses (20 sources) Opportunistic mycosis; Translations: [Candidiasis, unspecified] Onset: 4 08-14-2023 Episodic Nutritional deficiencies (20 sources) Cobalamin deficiency; Translations: [Deficiency of other specified B group vitamins] Onset: 3 07-04-2023 Episodic Other circulatory disease (1 source) Other specified symptoms and signs involving the circulatory and respiratory systems; Translations: [OTH SPEC SX SIGNS INVLV CIRC RS] Onset: 2 Episodic Other connective tissue disease (20 sources) Plantar fasciitis of right foot; Translations: [Plantar fascial fibromatosis] Onset: 3 06-30-2023 Episodic Other gastrointestinal disorders (20 sources) History of bypass of stomach; Translations: [Bariatric surgery status] Onset: 4 08-04-2023 Episodic Other gastrointestinal disorders (20 sources) Constipation; Translations: [Constipation, unspecified] Onset: 4 02-28-2024 Episodic Other gastrointestinal disorders (20 sources) History of gastrointestinal bleed; Translations: [Personal history of other diseases of the digestive system] Onset: 4 03-06-2024 Episodic Other screening for suspected conditions (not mental disorders or infectious disease) (20 sources) Abnormal electrocardiogram [ECG] [EKG]; Translations: [Patient encounter status] Onset: 3 Episodic Otitis media and related conditions (20 sources) Acute suppurative otitis media without spontaneous rupture of ear drum; Translations: [Acute suppurative otitis media without spontaneous rupture of ear drum, bilateral] Onset: 4 01-08-2024 Episodic Unclassified (1 source) CONTACT W/AND (SUSP) EXPOS COVID-19; Translations: [CONTACT W/AND (SUSP) EXPOS COVID-19] Onset: 1 Results Test Name Value Interpretation Reference Range Facility CHRONIC WOUND/ULCER (HTRX)on 08-14-2024 ACINETOBACTER BAUMANNII (CHRONIC WOUND/ULCER) 0 [facility] ACINETOBACTER BAUMANNII (CHRONIC WOUND/ULCER) Not detected [facility] BACTEROIDES FRAGILIS, VULGATUS (CHRONIC WOUND/ULCER) 0 [facility] BACTEROIDES FRAGILIS, VULGATUS (CHRONIC WOUND/ULCER) Not detected [facility] CITROBACTER FREUNDII (CHRONIC WOUND/ULCER) 0 [facility] CITROBACTER FREUNDII (CHRONIC WOUND/ULCER) Not detected [facility] CLOSTRIDIUM PERFRINGENS, NOVYI, SEPTICUM (CHRONIC WOUND/ULCER) 0 [facility] CLOSTRIDIUM PERFRINGENS, NOVYI, SEPTICUM (CHRONIC WOUND/ULCER) Not detected [facility] CORYNEBACTERIUM JEIKEIUM, STRIATUM, TUBERCULOSTEARICUM (CHRONIC WOUND/ULCER 0 [facility] CORYNEBACTERIUM JEIKEIUM, STRIATUM, TUBERCULOSTEARICUM (CHRONIC WOUND/ULCER Not detected [facility] CUTIBACTERIUM (PROPIONIBACTERIUM) ACNES (CHRONIC WOUND/ULCER) 0 [facility] CUTIBACTERIUM (PROPIONIBACTERIUM) ACNES (CHRONIC WOUND/ULCER) Not detected [facility] ENTEROBACTER CLOACAE COMPLEX, KLEBSIELLA (ENTEROBACTER) AEROGENES (CHRONIC 0 [facility] ENTEROBACTER CLOACAE COMPLEX, KLEBSIELLA (ENTEROBACTER) AEROGENES (CHRONIC Not detected [facility] ENTEROCOCCUS FAECALIS, FAECIUM (CHRONIC WOUND/ULCER) 0 [facility] ENTEROCOCCUS FAECALIS, FAECIUM (CHRONIC WOUND/ULCER) Not detected [facility] ESCHERICHIA COLI (CHRONIC WOUND/ULCER) 0 [facility] ESCHERICHIA COLI (CHRONIC WOUND/ULCER) Not detected [facility] HERPES SIMPLEX VIRUS 1 0 [facility] HERPES SIMPLEX VIRUS 1 Not detected [facility] HERPES SIMPLEX VIRUS 2 0 [facility] HERPES SIMPLEX VIRUS 2 Not detected [facility] Interpretation and review of laboratory results Abnormal [facility] KLEBSIELLA PNEUMONIAE, OXYTOCA (CHRONIC WOUND/ULCER) 0 [facility] KLEBSIELLA PNEUMONIAE, OXYTOCA (CHRONIC WOUND/ULCER) Not detected [facility] P. ANAEROBIUS, P. ASACCAROLYTICUS, F. MAGNA, A. PREVOTII 0 [facility] P. ANAEROBIUS, P. ASACCAROLYTICUS, F. MAGNA, A. PREVOTII Not detected [facility] PROTEUS MIRABILIS, VULGARIS (CHRONIC WOUND/ULCER) 0 [facility] PROTEUS MIRABILIS, VULGARIS (CHRONIC WOUND/ULCER) Not detected [facility] PSEUDOMONAS AERUGINOSA (CHRONIC WOUND/ULCER) 0 [facility] PSEUDOMONAS AERUGINOSA (CHRONIC WOUND/ULCER) Not detected [facility] S. agalactiae Org specific cx Ql (Vag fld) 0 [facility] S. agalactiae Org specific cx Ql (Vag fld) Not detected [facility] SERRATIA MARCESCENS (CHRONIC WOUND/ULCER) 0 [facility] SERRATIA MARCESCENS (CHRONIC WOUND/ULCER) Not detected [facility] STAPHYLOCOCCUS AUREUS (CHRONIC WOUND/ULCER) 0 [facility] STAPHYLOCOCCUS AUREUS (CHRONIC WOUND/ULCER) Not detected [facility] STAPHYLOCOCCUS EPIDERMIDIS, HAEMOLYTICUS, LUGDUNENSIS, SAPROPHYTICUS (CHRON 23.533 Abnormal [facility] STAPHYLOCOCCUS EPIDERMIDIS, HAEMOLYTICUS, LUGDUNENSIS, SAPROPHYTICUS (CHRON Detected Abnormal [facility] STREPTOCOCCUS PYOGENES (GROUP A STREP) (CHRONIC WOUND/ULCER) 0 [facility] STREPTOCOCCUS PYOGENES (GROUP A STREP) (CHRONIC WOUND/ULCER) Not detected [facility] VARICELLA ZOSTER VIRUS (HUMAN HERPESVIRUS 3) (CHRONIC WOUND/ULCER) 0 [facility] VARICELLA ZOSTER VIRUS (HUMAN HERPESVIRUS 3) (CHRONIC WOUND/ULCER) Not detected [facility] VIBRIO CHOLERAE, PARAHAEMOLYTICUS, VULNIFICUS (CHRONIC WOUND/ULCER) 0 [facility] VIBRIO CHOLERAE, PARAHAEMOLYTICUS, VULNIFICUS (CHRONIC WOUND/ULCER) Not detected [facility] ALL CBC WITH AUTO DIFFon BASOPHILS ABSOLUTE AUTO 0 [facility] Basophils/100 WBC (Bld) 0.6 % 0.2 - 2.0 % [facility] Eosinophils/100 WBC (Bld) 0 % Low 0.9 - 7.0 % [facility] Erythrocyte distribution width (RBC) [Ratio] 13.6 % 11.0 - 15.0 % [facility] Hematocrit (Bld) [Volume fraction] 37.4 % 36.0 - 48.0 % [facility] Hemoglobin (Bld) [Mass/Vol] 12.1 g/dL 12.0 - 16.0 g/dL [facility] IMMATURE GRANULOCYTES ABS AUTO 0.01 [facility] Immature granulocytes/100 WBC (Bld) 0.2 % 0.0 - 0.5 % [facility] Interpretation and review of laboratory results Abnormal [facility] LYMPHOCYTES ABSOLUTE AUTO 1.1 Low [facility] Lymphocytes/100 WBC (Bld) 19.9 % Low 20.5 - 60.0 % [facility] MCH (RBC) [Entitic mass] 29.4 pg 26.7 - 34.0 pg [facility] MCHC (RBC) [Mass/Vol] 32.4 g/dL 29.9 - 35.2 g/dL [facility] MCV (RBC) [Entitic vol] 91 fL 81.0 - 99.0 fL [facility] MONOCYTES ABSOLUTE AUTO 0.2 Low [facility] Monocytes/100 WBC (Bld) 4.2 % 1.7 - 12.0 % [facility] NEUTROPHILS ABSOLUTE AUTO 4.1 [facility] Neutrophils/100 WBC (Bld) 75.1 % High 43.0 - 75.0 % [facility] Platelet mean volume (Bld) [Entitic vol] 9.7 fL 9.5 - 13.5 fL [facility] TBH EO # 0 [facility] PLT 256 [facility] RBC 4.11 Low [facility] TB WBC 5.4 [facility] SS-A/Ro Sjogrens Antibodyon 04-18-2024 SS-A/Ro Sjogrens Antibody <0.2 Normal 0.0-0.9 [facility] Comment on above: Performed By: #### S SB, SSA #### [facility] , SS-B/La Sjogrens Antibodyon 04-18-2024 SS-B/La Sjogrens Antibody <0.2 Normal 0.0-0.9 [facility] Comment on above: Result Comment: Perf ormed at: CB - [facility] [address] [id number] Fuse Maker: Hector Franco PhD, Phone: [phone] PERFORMED BY: [place] [id number] PATHOLOGIST [employer]ICATION[employer] SALES REPRESENTATIVE LEAH SANFORD M.D. Performed By: #### S SB, SSA #### [facility] , Ambulatory Visit Summaryon 0 03-18-2024 Ambulatory Visit Summary Ambulatory Visit Summary TALIA RUTHERFORD :1970 Visit Date:03/18/2024 Ambulatory Visit Instructions Your Diagnosis Constipation Left upper quadrant pain Stress Your Care Team Attending Physician - Jelani WELLER, Ron Martin Primary Care Physician - EFREM WELLER, This Is Your Medications List Contact prescribing physician if questions or concerns citalopram (CeleXA 40 mg Tab) duloxetine (Cymbalta 30 mg Cap-DR) fexofenadine-pseudoephedrin e (Layla D OTC 24HR) lansoprazole (lansoprazole 30 [...] prescribing physician if questions or concerns Unchanged fexofenadine-pseudoephedrin e (Layla D OTC 24HR) 1 Tablets By [...] choosing us for your care. Normal [facility] Gastroenterology Office/Clin ic Noteon 03-18-2024 Gastroenterology Office/Clinic [...] vaccine, inactivated - Not Given Patient Refuses Normal [facility] Comment on above: Result Comment: Elec tronically Signed By: Jelani WELLER, Ron Martin\.br\Date and Time Signed: 03/18/24 15:21 EDT Outside Colonoscopyon 2023 Outside Colonoscopy [id number]#1.00TIFF Normal [facility] Reminderson 07-20-2023 Reminders - From: Machelle Arauz LPN To: GSN - Clinical; Sent: 07/20/2023 10:55:11 EST Show up: 06/19/2033 07:00:00 EST Subject: colonoscopy recall Due Date/Time: 07/19/2033 07:00:00 EST Reminder/Recall Patient due for screening colonoscopy 07/19/2033. [facility] Lab Reportson 06-26-2023 Lab Reports [id number]#1.00TIFF [facility] Insurance Correspondenceon 08-09-2022 Insurance Correspondence [id number]#1.00TIFF [facility] Facesheeton 06-08-2023 Facesheet [id number]#1.00TIFF [facility] Physician Referralon 023 Physician Referral [id number]#1.00TIFF [facility] Ambulatory Visit Summaryon 08-07-2022 Ambulatory Visit Summary TALIA RUTHERFORD Letitia :1970 Visit Date:06/07/2023 Ambulatory Visit Instructions Your Care Team Attending Physician - AMIE WELLER, Segun Denis Primary Care Physician - EFREM WELLER, BUNN This Is Your Medications List aripiprazole (aripiprazole 10 mg Tab) duloxetine (Cymbalta 30 mg Cap-DR) ferrous sulfate (ferrous sulfate 325 mg Tab) fexofenadine-pseudoephedrin e (Layla D OTC 24HR) lansoprazole (lansoprazole 30 [...] 1 Tablets By Mouth Every day Unchanged fexofenadine-pseudoephedrin e (Layla D OTC 24HR) 1 Tablets By [...] for choosing us for your care. Normal [facility] Lab Reportson 05-31-2023 Lab Reports [id number]#1.00TIFF [facility] Consultation Noteon 05-25-20 23 Consultation Note [id number]#1.00TIFF [facility] Physician Referralon 023 Physician Referral [id number]#1.00TIFF [facility] Office Visiton 04-07-2023 Follow-up visit [id number] Norma Rutherford 1970 F Date Provider Department Center 04/07/2023 [id number] BERG Family History Problem Relation Age of Onset Brain Aneurysm Mother 80 Diabetes Mother Heart failure Father 80 Diabetes Father Hypertension Father Diabetes Sister Family Status - Relation Status Age at Mother Father Sister Level of Service:21719 DE OFFICE/OUTPATIENT ESTABLISHED MOD MDM 30-39 MIN Normal [facility] 36on 02-08-2023 36 [facility] lab called to re port critical HGB and hematocrit for patient: HGB was 5.1 and hematocrit is 18.9. I spoke with Talia and advised she go to the ED. She verbalized understanding and will do so. Normal [facility] Office Visiton 02-08-2023 Follow-up visit [id number] Norma Rutherford 1970 F Date Provider Department Center 02/08/2023 [id number] BERG CARD [facility] Family History Problem Relation Age of Onset Brain Aneurysm Mother 80 Diabetes Mother Heart failure Father 80 Diabetes Father Hypertension Father Diabetes Sister Family Status - Relation Status Age at Mother Father Sister Level of Service:04454 DE OFFICE/OUTPATIENT NEW MODERATE MDM 45-59 MINUTES Reason for Visit and Comments: Establish Care [42] - Swelling in both legs,right leg is itching and painful Shortness of Breath [892339] Dizziness [650092] Fatigue [46] Normal [facility] PREG HCG QUALon 03-10-2022 , QUAL Negative Normal NEGATIVE [facility] Comment on above: Performed By: #### P REG ####[facility] [address] [id number] Moni Johnson Covid-19 PCR (CVDTB)on 02-21 SARS-CoV-2 (COVID-19) RNA EMMANUEL+probe Ql (Unsp spec) Not detected Normal NOT DETECTED [facility] Comment on above: Result Comment: This test is not yet approved or cleared by the [place] FDA. When there are no FDA-approved or cleared tests available, and other criteria are met, FDA can make tests available under an emergency access mechanism called an Emergency Use Authorization (EUA). The EUA for this test is supported by the [place] Coord[place] of Health and Human Service's (HHS's) [...] SARS-CoV-2. Performed By: #### C VDTB #### [facility] [address] [address] [address] Moni Johnson PROF CHEM 8 (BAS METB)on Anion gap [Moles/Vol] 9.0 mmol/L Normal [facility] Comment on above: Performed By: #### B MP ####[facility] [address] [address]Dr. Moni oJhnson Calcium [Mass/Vol] 8.3 mg/dL Critically low 8.5-10.1 Th e [facility] Comment on above: Performed By: #### B MP ####[facility] [address] [address]Dr. Moni Johnson Chloride [Moles/Vol] 106 mmol/L Normal 98-107 [facility] Comment on above: Performed By: #### B MP ####[facility] [address] [address]DrConsuelo Johnson CO2 [Moles/Vol] 29.2 mmol/L Normal 21.0-32.0 The [facility] Comment on above: Performed By: #### B MP ####[facility] [address] [address]Dr. Moni Johnson Creatinine [Mass/Vol] 0.78 mg/dL Normal 0.55-1.02 [facility] Comment on above: Performed By: #### B MP ####[facility] [address] [address]Dr. Moni Johnson EGFR-AF TUNISIAN >60 Normal >=60 [facility] Comment on above: Performed By: #### B MP ####[facility] [address] [address]Dr. Moni Johnson EGFR-NON AF TUNISIAN >60 Normal >=60 [facility] Comment on above: Performed By: #### B MP ####[facility] [address] [place], [place] [address]Dr. Moni Johnson Glucose [Mass/Vol] 88 mg/dL Normal 74-106 [facility] Comment on above: Performed By: #### B MP ####[facility] [address] [address]Dr. Moni Johnson Potassium [Moles/Vol] 4.2 mmol/L Normal 3.5-5.1 [facility] Comment on above: Performed By: #### B MP ####[facility] [address] [address]Dr. Moni Alex Sodium [Moles/Vol] 140 mmol/L Normal 136-145 [facility] Comment on above: Performed By: #### B MP ####[facility] [address] [address]Dr. Moni Johnson Urea nitrogen [Mass/Vol] 21.0 mg/dL Critically high 7.0-18.0 [facility] Comment on above: Performed By: #### B MP ####[facility] [address] [address]Dr. Moni Alex Urea nitrogen/Creatinine [Mass ratio] 26.9 mg/mg Normal [facility] Comment on above: Performed By: #### B MP ####[facility] [address] [address] FOOT LT WO CONon [...] ELLIOT JOSE Date: 2022-02-22 18:32 Normal [facility] COVID Quick Testingon 2021 Result Negative [facility] Other Quick Fluon 08-30-2021 FLUAV Ab CF (S) [Titer] Negative [facility] Other FLUBV Ab CF (S) [Titer] Negative [facility] Other Covid-19 PCR ([facility])on 05-24 SARS-CoV-2 (COVID-19) RNA EMMANUEL+probe Ql (Unsp spec) Not detected Normal NOT DETECTED [facility] Comment on above: Result Comment: This test is not yet approved or cleared by the [place] FDA. When there are no FDA-approved or cleared tests available, and other criteria are met, FDA can make tests available under an emergency access mechanism called an Emergency Use Authorization (EUA). The EUA for this test is supported by the [place] of Health and Human Service's (HHS's) declaration [...] consistent with SARS-CoV-2. Performed By: #### [facility] #### [facility] [address] [place] [address] Dr. Moni Johnson Vital Signs Date Time Vital Sign Value Performing Clinician Facility 08-12-2024 16:04-0500 Body mass index (BMI) [Ratio] 33.32 kg/m2 Pascale Arana REGULATORY ADMINISTRATOR Work Phone: [facility] 08-12-2024 16:04-0500 Body temperature 98.1 [degF] Pascale Arana REGULATORY ADMINISTRATOR Work Phone: [facility] 08-12-2024 16:04-0500 Body weight 90.81 kg Pascale Arana REGULATORY ADMINISTRATOR Work Phone: [facility] 08-12-2024 16:04-0500 Diastolic blood pressure 62 mm[Hg] Pascale Shalaholz REGULATORY ADMINISTRATOR Work Phone: [facility] 08-12-2024 16:04-0500 Heart rate 80 /min Pascale Herreraz REGULATORY ADMINISTRATOR Work Phone: [facility] 08-12-2024 16:04-0500 Respiratory rate 20 /min Pascale Herreraz REGULATORY ADMINISTRATOR Work Phone: [facility] 08-12-2024 16:04-0500 SaO2% (BldA) [Mass fraction] 97 % Pascale Herreraz REGULATORY ADMINISTRATOR Work Phone: [facility] 08-12-2024 16:04-0500 Systolic blood pressure 90 mm[Hg] Pascale Herreraz REGULATORY ADMINISTRATOR Work Phone: [facility] 07-31-2024 14:59-0500 Body height 165.1 cm Angel Luis Groves REGULATORY ADMINISTRATOR Work Phone: [facility] 07-31-2024 14:59-0500 Body mass index (BMI) [Ratio] 34.28 kg/m2 Angel Luis Groves REGULATORY ADMINISTRATOR Work Phone: [facility] 07-31-2024 14:59-0500 Body temperature 96.21 [degF] Angel Luis Groves REGULATORY ADMINISTRATOR Work Phone: [facility] 07-31-2024 14:59-0500 Body weight 93.44 kg Angel Luis Groves REGULATORY ADMINISTRATOR Work Phone: [facility] 07-31-2024 14:59-0500 Diastolic blood pressure 62 mm[Hg] Angel Luis Groves REGULATORY ADMINISTRATOR Work Phone: [facility] 07-31-2024 14:59-0500 Heart rate 83 /min Angel Luis Groves REGULATORY ADMINISTRATOR Work Phone: [facility] 07-31-2024 14:59-0500 Respiratory rate 22 /min Angel Luis Groves REGULATORY ADMINISTRATOR Work Phone: [facility] 07-31-2024 14:59-0500 SaO2% (BldA) [Mass fraction] 98 % Angel Luis Groves REGULATORY ADMINISTRATOR Work Phone: [facility] 07-31-2024 14:59-0500 Systolic blood pressure 100 mm[Hg] Angel Luis Groves REGULATORY ADMINISTRATOR Work Phone: [facility] 04-10-2024 15:56-0400 Body height 165.1 cm Angel Luis Groves REGULATORY ADMINISTRATOR Work Phone: [facility] 04-10-2024 15:56-0400 Body mass index (BMI) [Ratio] 33.61 kg/m2 Angel Luis Groves REGULATORY ADMINISTRATOR Work Phone: [facility] 04-10-2024 15:56-0400 Body temperature 98.29 [degF] Angel Luis Groves REGULATORY ADMINISTRATOR Work Phone: [facility] 04-10-2024 15:56-0400 Body weight 91.63 kg Angel Luis Groves REGULATORY ADMINISTRATOR Work Phone: [facility] 04-10-2024 15:56-0400 Diastolic blood pressure 68 mm[Hg] Angel Luis Groves REGULATORY ADMINISTRATOR Work Phone: [facility] 04-10-2024 15:56-0400 Heart rate 67 /min Angel Luis Groves REGULATORY ADMINISTRATOR Work Phone: [facility] Comment on above: 98% O2 04-10-2024 15:56-0400 Systolic blood pressure 100 mm[Hg] Angel Luis Groves REGULATORY ADMINISTRATOR Work Phone: [facility] 03-18-2024 15:06-0400 Blood Pressure Location Ron Salinasdania [facility] 03-18-2024 15:06-0400 Diastolic blood pressure 69 mm[Hg] Lynnletitia Palomares [facility] 03-18-2024 15:06-0400 Heart rate 85 /min Lynnletitia Braddania [facility] 03-18-2024 15:06-0400 Respiratory rate 16 /min Lynnletitia Braddania [facility] 03-18-2024 15:06-0400 Systolic blood pressure 107 mm[Hg] Lynnletitia Palomares [facility] 03-12-2024 15:46-0400 Body height 165.1 cm Angel Luis Groves REGULATORY ADMINISTRATOR Work Phone: [facility] 03-12-2024 15:46-0400 Body mass index (BMI) [Ratio] 33.28 kg/m2 Angel Luis Groves REGULATORY ADMINISTRATOR Work Phone: [facility] 03-12-2024 15:46-0400 Body temperature 98.01 [degF] Angel Luis Groves REGULATORY ADMINISTRATOR Work Phone: [facility] 03-12-2024 15:46-0400 Body weight 90.72 kg Angel Luis Groves REGULATORY ADMINISTRATOR Work Phone: [facility] 03-12-2024 15:46-0400 Diastolic blood pressure 70 mm[Hg] Angel Luis Groves REGULATORY ADMINISTRATOR Work Phone: [facility] 03-12-2024 15:46-0400 Heart rate 71 /min Angel Luis Groves REGULATORY ADMINISTRATOR Work Phone: [facility] Comment on above: 99% O2 03-12-2024 15:46-0400 Systolic blood pressure 100 mm[Hg] Angel Luis Groves REGULATORY ADMINISTRATOR Work Phone: [facility] 06-07-2023 16:03-0500 Blood Pressure Location Segun DUARTE [facility] 06-07-2023 16:03-0500 Diastolic blood pressure 88 mm[Hg] Segun WILLARDL [facility] 06-07-2023 16:03-0500 Heart rate 72 /min Segun IWLLARDL [facility] [place] 06-07-2023 16:03-0500 Respiratory rate 16 /min Segun WILLARDL [facility] 06-07-2023 16:03-0500 Systolic blood pressure 130 mm[Hg] Segun DUARTE [facility] 08-30-2021 13:00-0500 Body height 165.1 cm Kristin Ginty Other [facility] Other 08-30-2021 13:00-0500 Body mass index (BMI) [Ratio] 30.95 kg/m2 Kristin Ginty Other [facility] Other 08-30-2021 13:00-0500 Body temperature 98 [degF] Kristin Ginty Other [facility] Other 08-30-2021 13:00-0500 Body weight 84.37 kg Kristin Ginty Other [facility] Other 08-30-2021 13:00-0500 Respiratory rate 16 /min Kristin Ginty Other [facility] Other 08-30-2021 13:00-0500 SaO2% (BldA) [Mass fraction] 98 % Kristin Ginty Other [facility] Other Encounters Encounter Date Encounter Type Care Provider Facility Start: 08-28-2024 End: 08-28-2024 Refill Angel Luis Groves REGULATORY ADMINISTRATOR Work Phone: [facility] Comment on above: Fibromyalgia Start: 08-14-2024 End: 08-14-2024 Refill Angel Luis Groves REGULATORY ADMINISTRATOR Work Phone: [facility] Comment on above: Fibromyalgia Start: 08-12-2024 End: 08-12-2024 Office outpatient visit 25 minutes Pascale Arana REGULATORY ADMINISTRATOR Work Phone: [facility] Comment on above: Acute non-recurrent maxillary sinusitis (Primary Dx); Cigarette nicotine dependence without complication; Class 1 obesity due to excess calories without serious comorbidity in adult, unspecified BMI; Environmental and seasonal allergies; Cutaneous abscess of abdominal wall Start: 08-12-2024 End: 08-12-2024 ambulatory PASCALE ARANA Not Available Start: 08-12-2024 End: 08-12-2024 Bamboo flowsheet Pascale Sumit REGULATORY ADMINISTRATOR Work Phone: [facility] Start: 08-12-2024 End: 08-14-2024 Bamboo flowsheet Pascale Sumit REGULATORY ADMINISTRATOR Work Phone: [facility] Start: 08-12-2024 End: 08-14-2024 External Result Encounter Pascale Arana REGULATORY ADMINISTRATOR Work Phone: [facility] Unsolicited Start: 08-05-2024 End: 08-06-2024 Orders Only Angel Luis Blackburnk REGULATORY ADMINISTRATOR Work Phone: [facility] Comment on above: B12 deficiency (Prim radha Dx); Iron deficiency anemia, unspecified iron deficiency anemia type Start: 08-01-2024 End: 08-01-2024 Clinisync Result Encounter Angel Luis Groves REGULATORY ADMINISTRATOR Work Phone: [facility] Unsolicited Start: 08-01-2024 End: 01-09-2025 Clinisync Result Encounter Angel Luis Mathurtrick REGULATORY ADMINISTRATOR Work Phone: [facility] Unsolicited Start: 07-31-2024 End: 07-31-2024 Office outpatient visit 15 minutes Angel Luis Blackburnk REGULATORY ADMINISTRATOR Work Phone: [facility] Comment on above: Iron deficiency anem ia secondary to inadequate dietary iron intake (Primary Dx); Fibromyalgia; Psychophysiological insomnia; BMI 34.0-34.9,adult Start: 07-31-2024 End: 07-31-2024 ambulatory ANGEL LUIS MATHURTRICK Not Available Start: 07-31-2024 End: 07-31-2024 Bamboo flowsheet Angel Luis Mathurtrick REGULATORY ADMINISTRATOR Work Phone: [facility] Start: 07-31-2024 End: 07-31-2024 Bamboo flowsheet Angel Luis Nolanpatrick REGULATORY ADMINISTRATOR Work Phone: [facility] Start: 07-25-2024 End: 07-29-2024 Refill Angel Luis Groves REGULATORY ADMINISTRATOR Work Phone: [facility] Comment on above: Psychophysiological insomnia Start: 06-25-2024 End: 06-25-2024 Refill Angel Luis Groves REGULATORY ADMINISTRATOR Work Phone: [facility] Comment on above: Psychophysiological insomnia Start: 06-11-2024 End: 06-11-2024 Orders Only Angel Luis Groves REGULATORY ADMINISTRATOR Work Phone: [facility] Comment on above: Fibromyalgia (Primar y Dx) Start: 06-03-2024 End: 06-03-2024 Refill Angel Luis Groves REGULATORY ADMINISTRATOR Work Phone: [facility] Comment on above: Fibromyalgia Start: 05-27-2024 End: 05-27-2024 Orders Only Angel Luis Groves REGULATORY ADMINISTRATOR Work Phone: [facility] Comment on above: Psychophysiological insomnia (Primary Dx) Start: 04-18-2024 End: 04-18-2024 Patient encounter procedure MD Tyson Collazo Work Phone: [facility] [address] Work Phone: Start: 04-18-2024 End: 04-18-2024 ambulatory Tyson Collazo [facility] Work Phone: Start: 04-10-2024 End: 04-10-2024 Office outpatient visit 15 minutes Angel Luis Groves REGULATORY ADMINISTRATOR Work Phone: [facility] Comment on above: Psychophysiological insomnia (Primary Dx); Fibromyalgia; Constipation, unspecified constipation type Start: 04-10-2024 End: 04-10-2024 ambulatory ANGEL LUIS GROVES Not Available Start: 04-10-2024 End: 04-10-2024 Bamboo flowsheet Angel Luis Groves REGULATORY ADMINISTRATOR Work Phone: [facility] Start: 04-10-2024 End: 04-10-2024 Bamboo flowsheet Angel Luis Groves REGULATORY ADMINISTRATOR Work Phone: [facility] Start: 03-18-2024 End: 03-18-2024 ambulatory Ron Palomares Facility:[facility] Start: 03-18-2024 End: 03-18-2024 Patient encounter procedure Ron Palomares [facility] Start: 03-13-2024 End: 03-13-2024 Refill Angel Luis Groves REGULATORY ADMINISTRATOR Work Phone: [facility] Comment on above: Fibromyalgia (Primar y Dx) Start: 03-12-2024 End: 03-12-2024 Office outpatient visit 15 minutes Angel Luis Groves REGULATORY ADMINISTRATOR Work Phone: [facility] Comment on above: Constipation, unspec ified constipation type (Primary Dx); Fibromyalgia Start: 03-12-2024 End: 03-12-2024 ambulatory ANGEL LUIS GROVES Not Available Start: 03-12-2024 End: 03-12-2024 Bamboo flowsheet Angel Luis Groves REGULATORY ADMINISTRATOR Work Phone: [facility] Start: 03-12-2024 End: 03-12-2024 Bamboo flowsheet Angel Luis Groves REGULATORY ADMINISTRATOR Work Phone: [facility] Start: 03-07-2024 ambulatory Ron Sutherland y:ConradEliezerMelissalaura meza [facility] Start: 03-06-2024 End: 03-06-2024 ambulatory ANGEL LUIS GROVES Not Available Start: 02-28-2024 End: 02-28-2024 ambulatory ANGEL LUIS GROVES Not Available Start: 02-26-2024 Non-patient / Non-visit MD Roel Collazo Work Phone: [facility] Work Phone: Start: 01-22-2024 End: 01-22-2024 ambulatory BUNN FAWWAD Not Available Start: 01-08-2024 End: 01-08-2024 ambulatory BUNN FAWWAD Not Available Start: 11-13-2023 End: 11-13-2023 ambulatory BUNN FAWWAD Not Available Start: 08-25-2023 Casey Main MD Work Phone: [facility] Comment on above: Bipolar disorder wit h severe depression (CMS/HCC) Start: 08-14-2023 End: 08-14-2023 ambulatory BUNN FAWWAD Not Available Start: 07-19-2023 End: 07-19-2023 ambulatory Segun DUARTE Facility:[id number] Start: 06-07-2023 End: 06-07-2023 ambulatory Segun DUARTE Facility:[facility] Start: 06-07-2023 End: 06-07-2023 Patient encounter procedure Segun DUARTE [facility] [place] Start: 06-05-2023 ambulatory Ricalilod Mojesicali Facilit y:[facility] Start: 05-18-2023 ambulatory Mohamad Mojesicali Facilit y:[facility] Start: 04-07-2023 End: 04-07-2023 ambulatory [facility] Start: 02-08-2023 ambulatory [facility] Start: 05-31-2022 End: 06-01-[address] TAMIKO NETTLES Facility:[facility] Start: 05-10-2022 End: 05-11-[address] ELLIOT JOSE Facility:[facility] Start: 04-19-2022 End: 04-20-2022 ambulatory MICHAEL DSOUZA Facility:[facility] Start: 03-29-2022 End: 03-30-2022 ambulatory MICHAEL DSOUZA Facility:[facility] Start: 03-10-2022 End: 03-10-2022 ambulatory TAWANA Dong [facility] Facility:[facility] Start: 03-07-2022 Encounter for prepro cedural cardiovascular examination [facility] Start: 03-07-2022 Encounter for prepro cedural laboratory examination [facility] Start: 03-03-2022 End: 03-04-2022 ambulatory [facility] Letitia [facility] Facility:[facility] Start: 03-03-2022 End: 03-04-2022 Encounter for preprocedural laboratory examination [facility] Facility:[facility] Start: 02-22-2022 End: 02-23-2022 ambulatory [facility] Facility:[facility] Start: 02-09-2022 End: 02-10-2022 ambulatory [facility] Facility:[facility] Start: 08-30-2021 End: 08-30-2021 ambulatory Kristin Quintana Other [facility] Other Start: 08-30-2021 Office outpatient vi sit 15 minutes Kristin Quintana [facility] Start: 06-07-2021 End: 06-07-[address] GRISELDA SCOTT Facility:[facility] Start: 11-14-2018 End: 11-15-2018 Patient encounter procedure DEFAULT PHYSICIAN Facility:[facility] Procedures Date Procedure Procedure Detail Performing Clinician Start: 08-12-2024 CHRONIC WOUND/ULCER (HTRX) Pascale Arana REGULATORY ADMINISTRATOR Work Phone: Start: 08-01-2024 ALL CBC WITH AUTO DIFF Angel Luis Germain REGULATORY ADMINISTRATOR Work Phone: Start: 07-19-2023 Colonoscopy Shaikh Sahil whitney MD [...] Screening for malign ant neoplasm of colon [facility] Start: 10-07-2024 Influenza vaccination Influenza Vacc ine (#1) [facility] Comment on above: Postponed from 03/24 (Patient Refused) Start: 10-04-2024 End: 08-06-2025 CBC W Auto Differential panel - Blood CBC and differential Lab Routine B12 deficiency Iron deficiency anemia, unspecified iron deficiency anemia type Expected: 10/04/2024 (Approximate), Expires: 08/06/2025 [facility] Work Phone: Comment on above: Expected: 10/04/2024 (Approximate), Expires: 08/06/2025 Start: 10-04-2024 End: 08-06-2025 Cobalamin (Vitamin B12) [Mass/volume] in Serum or Plasma Vitamin B12 Lab Routine B12 deficiency Iron deficiency anemia, unspecified iron deficiency anemia type Expected: 10/04/2024 (Approximate), Expires: 08/06/2025 [facility] Comment on above: Expected: 10/04/2024 (Approximate), Expires: 08/06/2025 Start: 10-04-2024 End: 08-06-2025 Ferritin [Mass/volume] in Serum or Plasma Ferritin Lab Routine B12 deficiency Iron deficiency anemia, unspecified iron deficiency anemia type Expected: 10/04/2024 (Approximate), Expires: 08/06/2025 [facility] Comment on above: Expected: 10/04/2024 (Approximate), Expires: 08/06/2025 Start: 10-04-2024 End: 08-06-2025 Iron + transferrin + TIBC Iron + transferrin + TIBC Lab Routine B12 deficiency Iron deficiency anemia, unspecified iron deficiency anemia type Expected: 10/04/2024 (Approximate), Expires: 08/06/2025 [facility] Comment on above: Expected: 10/04/2024 (Approximate), Expires: 08/06/2025 Start: 09-04-2024 End: 09-04-2024 Patient encounter procedure 09/04/2024 5:00 PM EST Office Visit [facility] [address] [place] [address] Angel Luis Groves NP [address] [place] [address] [facility] Start: 08-12-2024 End: 08-12-2024 Patient encounter procedure 08/12/2024 4:00 PM EST Office Visit [facility] [address] [place] [address] Pascale Arana NP [address] [place] [address] Arrived [facility] Comment on above: Arrived Start: 08-12-2024 End: 08-12-2025 SUPERFICIAL WOUND (HTRX) SUPERFICIAL WOUND (HTRX) Lab Routine Cutaneous abscess of abdominal wall Expected: 08/12/2024 (Approximate), Expires: 08/12/2025 [facility] Work Phone: Comment on above: Expected: 08/12/2024 (Approximate), Expires: 08/12/2025 Start: 07-31-2024 End: 07-31-2024 Patient encounter procedure [facility] Comment on above: Arrived Start: 07-31-2024 End: 07-31-2025 Cobalamin (Vitamin B12) [Mass/volume] in Serum or Plasma Vitamin B12 Lab Routine Iron deficiency anemia secondary to inadequate dietary iron intake Expected: 07/31/2024 (Approximate), Expires: 07/31/2025 [facility] Comment on above: Expected: 07/31/2024 (Approximate), Expires: 07/31/2025 Start: 07-31-2024 End: 07-31-2025 Ferritin [Mass/volume] in Serum or Plasma Ferritin Lab Routine Iron deficiency anemia secondary to inadequate dietary iron intake Expected: 07/31/2024 (Approximate), Expires: 07/31/2025 [facility] Comment on above: Expected: 07/31/2024 (Approximate), Expires: 07/31/2025 Start: 07-31-2024 End: 07-31-2025 Iron + transferrin + TIBC Iron + transferrin + TIBC Lab Routine Iron deficiency anemia secondary to inadequate dietary iron intake Expected: 07/31/2024 (Approximate), Expires: 07/31/2025 [facility] Comment on above: Expected: 07/31/2024 (Approximate), Expires: 07/31/2025 Start: 07-10-2024 End: 07-10-2024 Patient encounter procedure 07/10/2024 4:30 PM EST Office Visit [facility] [address] [place] [phone] Angel Luis Groves, MARY JO [address] [place] [address] [facility] Start: 06-05-2024 End: 06-05-2024 Patient encounter procedure 06/05/2024 5:30 PM EST Office Visit [facility] [address] [place] [address] Angel Luis Groves, MARY JO [address] [place] [phone] [facility] Start: 04-10-2024 End: 04-10-2024 Patient encounter procedure [facility] Comment on above: Arrived Start: 03-24-2024 Influenza vaccination Influenza Vacc ine (#1) [facility] Start: 03-12-2024 End: 03-12-2024 Patient encounter procedure 03/12/2024 3:30 PM EDT Office Visit [facility] [address] [place] [phone] Angel Luis Groves NP [address] [place] [phone] Arrived [facility] Comment on above: Arrived Start: 11-13-2023 End: 11-13-2023 Patient encounter procedure 11/13/2023 4:45 PM EDT Office Visit [facility] [address] [place] [phone] Shaikh Main MD [address] [place] [phone] [facility] Start: 03-24-2023 Influenza vaccination Influenza Vacc ine (#1) [facility] Start: 2011 Screening for malign ant neoplasm of breast Mammogram [facility] Start: 2001 Screening for malign ant neoplasm of cervix [facility] Start: 1992 Screening for malign ant neoplasm of cervix Pap Smear [facility] Start: 1971 Screening for malign ant neoplasm of colon [facility] CBC W Auto Different ial panel - Blood CBC and differential Lab Routine Iron deficiency anemia secondary to inadequate dietary iron intake Ordered: 07/31/2024 [facility] Work Phone: Comment on above: Ordered: 07/31/2024 Sjogrens syndrome-A extractable nuclear Ab [Units/volume] in Serum [facility] Sjogrens syndrome-B extractable nuclear Ab [Units/volume] in [facility] Immunizations Immunization Date Immunization Notes Care Provider Trena loving NEGATED: Highlighted row has not occurred!06-07-2023 influenza virus vaccine, unspecified formulation Segun DUARTE [facility] Payers Date Payer Category Payer Self-pay 2009 Managed Care HMO (unspecified) [id number] 1971 Unknown [id number] 2.16.840.1.991986.3.579.2.647 1971 Unknown [id number] 2.16.84 0.1.121958.3.579.2.593 1971 Unknown [id number] 2.16.84 0.1.813051.3.579.2.593 1971 Unknown [id number] 2.16.84 0.1.293998.3.579.2.593 1971 Unknown [id number] 2.16.84 0.1.485621.3.579.2.593 1971 Unknown [id number] 2.16.84 0.1.571603.3.579.2.593 1971 Unknown [id number] 2.16.84 0.1.441503.3.579.2.593 1971 Unknown [id number] 2.16.84 0.1.936457.3.579.2.593 1971 Unknown [id number] 2.16.84 0.1.615376.3.579.2.593 1971 Unknown [id number] 2.16.84 0.1.800101.3.579.2.593 1971 Unknown [id number] 2.16.840.1.880457.3.579.2.727 1971 Unknown [id number] 2.16.840.1.681481.3.579.2.72 1971 Unknown [id number] 2.16.840.1.276151.3.579.2. 1971 Unknown [id number] 2.16.840.1.726304.3.579.2. 1971 Unknown [id number] 2.16.840.1.031948.3.579.2. 1971 Unknown [id number] 2.16.840.1.428612.3.579.2.1258 1971 Unknown [id number] 2.16.840.1.331562.3.579.2.1258 1971 Unknown [id number] 2.16.840.1.491144.3.579.2.1258 1971 Unknown [id number] 2.16840.1.004589.3.579.2.1258 1971 Unknown [id number] 2.16.840.1.375629.3.579.2.1258 1971 Unknown [id number] 2.16.840.1.054867.3.579.2.1258 1971 Unknown [id number] 2.16.840.1.987940.3.579.2.1258 1971 Unknown [id number] 2.16840.1.216173.3.579.2.1258 1971 Unknown [id number] 2.16.840.1.613977.3.579.2.1258 1971 Unknown [id number] 2.16.840.1.072609.3.579.2.1259 1959 Private Health Insurance [id number] 2.16.840.1.386018.19 Unknown Unknown [id number] 2.16.840.1.325967.3.579.2.531 Social History Date Type Detail Facility Unknown if ever smoked [facility] Other Start: 08-07-2023 End: 04-10-2024 Sex Assigned At Conrad Eliezer Preciado [facility] Start: 06-07-2023 End: 03-18-2024 Tobacco smoking status Heavy tobacco smoker (finding) [facility] Tobacco smoking status Former sm okeless tobacco user, quit more than 30 days ago [facility] Start: 07-24-1985 End: 01-08-2024 Tobacco smoking status NHIS Smokes tobacco daily [facility] Start: 07-24-1985 History of tobacco use Cigarette Smo ker [facility] Start: 07-04-2023 End: 08-07-2023 Cigarettes smoked current (pack per day) - Reported 1 [facility] Start: 07-04-2023 End: 01-08-2024 Tobacco use and exposure Smokeless tobacco non-user [facility] Start: 08-14-2023 End: 08-12-2024 Alcohol intake Lifetime non-drinker (finding) [facility] [...] At Not on file [facility] Start: 1970 Sex Assigned At Female F [facility] History of tobacco use Passive smoker [facility] Goals Date Patient Goal Desired Activity /State Personal health goal Functional Status Date Assessment Result Facility 03-18-2024 [facility]23 Functional Status N/A [facility] [place] Clinical Notes 08-30-2021 to 08-14-2024 Telephone Encounter - Nupur Oneal - 08/14/2024 11:46 AM ESTTelephone Encounter - Nupur Jm - 08/14/2024 11:46 AM Trung Arana NP - 08/12/2024 5:50 PM ESTPatient Instructions Note Date & Type Note Facility 08-14-2024 Telephone encounter Note Patient said her dose was increased and now she is out of this medication. Can you please refill. ANAYELI [facility] 08-14-2024 Miscellaneous Notes Patient said her dose was increased and now she is out of this medication. Can you please refill. ANAYELI documented in this encounter [facility] 08-12-2024 History of Present illness Narrative Associated Problem(s): Cutaneous abscess of abdominal wall Warm compress, recommend since she gets repeated abscess we check a culture and treat appropriately based on the culture Culture obtained Associated Problem(s): Environmental and seasonal allergies Cont layla, add flonase Associated Problem(s): Acute non-recurrent maxillary sinusitis Zithromax , finish atb Fluids, rest Fu if not better, add steroid nasal spray Associated Problem(s): Class 1 obesity due to excess calories without serious comorbidity in adult Discussed with patient their BMI (actual, verses recommended). We have also discussed lifestyle modifications: attempts to perform physical activity as chronic conditions allow, also to monitor dietary intake: increasing protein/fruits/veggies and lowering carb intake (unless contraindicated). Limit sodas, juices, and sugary drinks. Also discussed oral medications that can be utilized for weight loss, as well as surgical options for weight loss. Associated Problem(s): Nicotine dependence The patient has been advised of the risks of continued smoking: stroke, [place], all forms of cancer, lung disease, and . Options for quitting smoking include: cold turkey, hypnosis, acupuncture, nicotine replacement meds (gum, lozenges, and patches), Buproprion, and Varenicline. At this time pt is encouraged to evaluate their goals for wanting to quit smoking, and reach out to provider when ready to start this process Pt started last -Monday with symptoms of fatigue, sinus pressure, sore throat, coughing up green mucus, sob, tightness in the chest, plugged ears, sweats and chills, body aches and pains, runny nose, drainage Possible vertigo with sinus Pt took tylenol sinus and mucinex- did not help much No at home testings: flu or covid Images from the original note were not included. Talia Rutherford is a 54 y.o. female presents with chief complaint of Sore Throat HPI: Pt started last -Monday with symptoms of fatigue, sinus pressure, sore throat, coughing up green mucus, sob, tightness in the chest, plugged ears, sweats and chills, body aches and pains, runny nose, drainage Possible vertigo with sinus Pt took tylenol sinus and mucinex- did not help much No at home testings: flu or covid Not UTD on flu or covid vaccine Wants wound on abd wall looked at: been there for several days, drainage+ tender, no fever. Gets them freq lower portion of pannus URI This is a new problem. The current episode started in the past 7 days. The problem has been gradually worsening. There has been no fever. Associated symptoms include congestion, coughing, ear pain, headaches, a plugged ear sensation, sinus pain, a sore throat and swollen glands. Pertinent negatives include no chest pain, dysuria, nausea or rash. Treatments tried: OTC. The treatment provided no relief. SUBJECTIVE: MEDICATIONS: Current Outpatient Medications Medication Instructions albuterol HFA 90 mcg/act inhaler 2 puffs, Inhalation, Every 4 hours PRN azithromycin (Zithromax) 250 MG tablet 2 pills day #1, 1 pill day #2-#5 citalopram (CELEXA) 40 mg, Oral, Every morning DULoxetine (CYMBALTA) 30 mg, Oral, Daily, Do not crush or chew. DULoxetine (CYMBALTA) 60 mg, Oral, Daily fexofenadine (LAYLA ALLERGY) 180 mg, Oral, Daily fluticasone (Flonase) 50 MCG/ACT nasal spray 2 sprays, Each Nostril, Daily, Shake gently. Before first use, prime pump. After use, clean tip and replace cap. gabapentin (NEURONTIN) 300 mg, Oral, 2 times daily lansoprazole (PREVACID) 30 mg, Oral, Daily before breakfast phentermine (ADIPEX-P) 37.5 mg, Oral, Daily before breakfast tolterodine LA (DETROL LA) 4 mg, Oral, Daily [START ON 08/28/2024] zolpidem (AMBIEN) 10 mg, Oral, Nightly PRN ALLERGIES: Allergies Allergen Reactions Penicillin G Unknown Penicillins REVIEW OF SYMPTOMS: Review of Systems Constitutional: Positive for fatigue. Negative for appetite change, chills and fever. HENT: Positive for congestion, ear pain, sinus pain and sore throat. Eyes: Negative for pain, discharge, redness and visual disturbance. Respiratory: Positive for cough. Cardiovascular: Negative for chest pain, palpitations and leg swelling. Gastrointestinal: Negative for blood in stool, constipation and nausea. Genitourinary: Negative for difficulty urinating, dysuria and frequency. Musculoskeletal: Positive for myalgias. Negative for arthralgias, back pain and joint swelling. Skin: Positive for wound. Negative for rash. Neurological: Positive for headaches. Negative for dizziness, tremors, seizures and syncope. Psychiatric/Behavioral: Negative for behavioral problems, self-injury and suicidal ideas. The patient is not nervous/anxious. Hematological: Does not bruise/bleed easily. Endocrine: Negative for polydipsia, polyphagia and polyuria. Allergic/Immunologic: Negative for environmental allergies and food allergies. PAST MEDICAL HISTORY Past Medical History: Diagnosis Date Abnormal foot pulse Anxiety and depression (CMS/HCC) Bipolar depression (CMS/HCC) Depression (CMS/HCC) Equinus contracture of left ankle Fibromyalgia GERD (gastroesophageal reflux disease) Headache History of reconstructive repair of rectocele Insomnia Iron (Fe) deficiency anemia Left foot pain Numbness of tongue Onychocryptosis Onychomycosis Overactive bladder Peripheral arterial disease (CMS/HCC) Primary osteoarthritis, left ankle and foot Seasonal allergies Sinusitis Surgical wound dehiscence Tobacco use disorder Uterovaginal prolapse Past Surgical History: Procedure Laterality Date CHOLECYSTECTOMY COLPORRHAPHY ENTEROCELE REPAIR GASTRIC BYPASS OTHER SURGICAL HISTORY Back injections and nerve cauterization TUBAL LIGATION family history includes Breast cancer in her maternal grandmother and mother's sister; Diabetes in her father and mother; Heart disease in her father; Hypertension in her father; Stroke in her father; Thyroid cancer in her maternal grandmother. OBJECTIVE: Visit Vitals BP 90/62 (BP Location: Left arm, Patient Position: Sitting, BP Cuff Size: Adult long) Pulse 80 Temp 98.1 F (Temporal) Resp 20 Wt 200 lb 3.2 oz SpO2 97% BMI 33.32 kg/m Smoking Status Every Day BSA 2.04 m Physical Exam Vitals and nursing note reviewed. Constitutional: General: She is not in acute distress. Appearance: Normal appearance. She is obese. She is not ill-appearing. HENT: Head: Normocephalic and atraumatic. Right Ear: Ear canal and external ear normal. Left Ear: Ear canal and external ear normal. Ears: Comments: Fluid in bilat TM's Nose: Congestion present. Comments: Sinus pressure Mouth/Throat: Mouth: Mucous membranes are moist. Pharynx: Posterior oropharyngeal erythema present. No oropharyngeal exudate. Eyes: Extraocular Movements: Extraocular movements intact. Conjunctiva/sclera: Conjunctivae normal. Cardiovascular: Rate and Rhythm: Normal rate and regular rhythm. Pulses: Normal pulses. Heart sounds: Normal heart sounds. Pulmonary: Effort: Pulmonary effort is normal. Breath sounds: Normal breath sounds. No wheezing or rales. Abdominal: General: Bowel sounds are normal. There is no distension. Palpations: Abdomen is soft. There is no mass. Tenderness: There is no abdominal tenderness. Musculoskeletal: General: Normal range of motion. Cervical back: Normal range of motion and neck supple. Right lower leg: No edema. Left lower leg: No edema. Lymphadenopathy: Cervical: No cervical adenopathy. Skin: General: Skin is warm and dry. Capillary Refill: Capillary refill takes 2 to 3 seconds. Findings: No rash. Comments: Wound: left side of pannus region, sm amount of brownish/blood drainage noted, size approx 14mm, +indurated, no fluctuance noted, mild erythema noted Neurological: General: No focal deficit present. Mental Status: She is alert and oriented to person, place, and time. Psychiatric: Mood and Affect: Mood normal. Behavior: Behavior normal. Thought Content: Thought content normal. Judgment: Judgment normal. ASSESSMENT AND PLAN: Follow up for Next scheduled follow-up. Problem List Items Addressed This Visit Nicotine dependence The patient has been advised of the risks of continued smoking: stroke, [place], all forms of cancer, lung disease, and . Options for quitting smoking include: cold turkey, hypnosis, acupuncture, nicotine replacement meds (gum, lozenges, and patches), Buproprion, and Varenicline. At this time pt is encouraged to evaluate their goals for wanting to quit smoking, and reach out to provider when ready to start this process Class 1 obesity due to excess calories without serious comorbidity in adult Discussed with patient their BMI (actual, verses recommended). We have also discussed lifestyle modifications: attempts to perform physical activity as chronic conditions allow, also to monitor dietary intake: increasing protein/fruits/veggies and lowering carb intake (unless contraindicated). Limit sodas, juices, and sugary drinks. Also discussed oral medications that can be utilized for weight loss, as well as surgical options for weight loss. Acute non-recurrent maxillary sinusitis - Primary Zithromax , finish atb Fluids, rest Fu if not better, add steroid nasal spray Relevant Medications azithromycin (Zithromax) 250 MG tablet Environmental and seasonal allergies Cont layla, add flonase Relevant Medications fluticasone (Flonase) 50 MCG/ACT nasal spray Cutaneous abscess of abdominal wall Warm compress, recommend since she gets repeated abscess we check a culture and treat appropriately based on the culture Culture obtained Relevant Orders SUPERFICIAL WOUND (HTRX) documented in this encounter [facility] 08-12-2024 Instructions Pascale Arana NP - 08/12/2024 4:00 PM EST Z pack, finish this Fluids, rest Cont layla and we will add flonase nasal spray Warm compress to affected area, will treat based on culture report documented in this encounter [facility] 07-31-2024 History of Present illness Narrative Associated Problem(s): [...] up for underlying auto immune disorder unremarkable. Saw rheumatology in March 2024- was recommended to do Aquatic Therapy. Is currently taking Gabapentin 300mg daily. Would like to increase to twice daily to help alleviate aches and decrease daily use of Aleve. Associated Problem(s): BMI 34.0-34.9,adult Pt meets qualifications of OAC 4731-05-27 for weight loss. BMI>30 or >27 with comorbid conditions. Blood pressure WNL. Notify office with any symptoms of chest pain, dyspnea, heart palpitations, or any anxiety symptoms. F/U in 4 weeks to document weight loss. Increase physical activity as tolerated, and lower caloric intake to 1600 calories daily if no contraindications Images from the original note were not included. Subjective Patient ID: Talia Rutherford is a 54 y.o. female who presents for Follow-up (3 m/Hot flashes). HPI Would like to discuss Adipex Current weight 206 5% is 10 pounds Has taken Adipex in the past. Reports she had good outcomes. Pt meets qualifications of OAC 4731-05-27 for weight loss. BMI>30 or >27 with comorbid conditions. Blood pressure WNL. Notify office with any symptoms of chest pain, dyspnea, heart palpitations, or any anxiety symptoms. F/U in 4 weeks to document weight loss. Increase physical activity as tolerated, and lower caloric intake to 1600 calories daily if no contraindications. Review of Systems Objective Physical Exam Vitals reviewed. Constitutional: Appearance: Normal appearance. HENT: Right Ear: Tympanic membrane normal. Left Ear: [...] sounds are normal. Palpations: Abdomen is soft. Skin: Capillary Refill: Capillary refill takes less than 2 seconds. Neurological: Mental Status: She is alert and oriented to person, place, and time. Assessment/Plan Problem List Items Addressed This Visit [...] up for underlying auto immune disorder unremarkable. Saw rheumatology in March 2024- was recommended to do Aquatic Therapy. Is currently taking Gabapentin 300mg daily. Would like to increase to twice daily to help alleviate aches and decrease daily use of Aleve. Relevant Medications gabapentin (Neurontin) 300 MG capsule Psychophysiological insomnia Relevant Medications zolpidem (Ambien) 10 MG tablet Iron deficiency anemia - Primary Relevant Orders CBC and differential Vitamin B12 Ferritin Iron + transferrin + TIBC BMI 34.0-34.9,adult Pt meets qualifications of OAC 4731-05-27 for weight loss. BMI>30 or >27 with comorbid conditions. Blood pressure WNL. Notify office with any symptoms of chest pain, dyspnea, heart palpitations, or any anxiety symptoms. F/U in 4 weeks to document weight loss. Increase physical activity as tolerated, and lower caloric intake to 1600 calories daily if no contraindications Relevant Medications phentermine (Adipex-P) 37.5 MG tablet documented in this encounter [facility] 07-31-2024 Instructions Angel Luis Groves NP - 07/31/2024 3:00 PM EST Notify office with any symptoms of chest pain, dyspnea, heart palpitations, or any anxiety symptoms. F/U in 4 weeks to document weight loss. Increase physical activity as tolerated, and lower caloric intake to 1600 calories daily if no contraindications. documented in this encounter [facility] 06-03-2024 Telephone encounter Note Pt takes the 60mg in morning and 30 mg in the afternoon, so both. [facility] 06-03-2024 Miscellaneous Notes Pt takes the 60mg in morning and 30 mg in the afternoon, so both. Patient is asking for a 90 day supply. Patient said 60 mg were denied. documented in this encounter [facility] 06-03-2024 Telephone encounter Note Patient is asking for a 90 day supply. Patient said 60 mg were denied. [facility] 04-10-2024 History of Present illness Narrative Associated [...] were not included. Subjective Patient ID: Talia Rutherford is a 54 y.o. female who presents [...] has since resolved. documented in this encounter [facility] 03-13-2024 History of Present illness Narrative Associated [...] were not included. Subjective Patient ID: Talia Rutherford is a 53 y.o. female who presents for Follow-up (CONSTIPATION, PT HAS HAD THREE BM'S SINCE LAST VISIT. PT IS STILL HAVING ABDOMINAL PAIN. PT SCHEDULED TO SEE [facility]/18 AT 1500. ). HPI IS here today for one week follow-up for constipation. Prescrivbed lacutlose at last visit-did not pick remover. Went on vacation to in [facility] in [place] for the weekend and had X3 BM's. Denies blood in stool. States she has been stressed recentlty and feels being away heloped her relax and she was finally able to pass BM. Sees GI in [place] on Sunday 03/18 @ 3pm. Still has [...] GI next week. documented in this encounter [facility] 03-12-2024 Instructions Angel Luis Groves NP - 03/12/2024 3:30 PM EDT Referral sent to Rheumatology- Dr. Muller in [place], [place]- they will call you! Have mammogram completed. Call if you need anything! documented in this encounter [facility] 06-07-2023 Note Chief Complaint consultation for colonoscopy HPI Staff 53 year old female presents on consultation from Dr. Bustamante for colonoscopy. Patient hospitalized in January with HGB of 4.8. At that time, patient was experiencing profound fatigue, dizziness and SOB. EGD was completed and normal. Patient left AMA prior to colonoscopy being completed. States symptoms have resolved. H/H completed /- 9.3/30.8. She is taking Ferrous Sulfate 325mg [...] fibromyalgia, referred for severe anemia, admitted to [facility] in January with hb of 5; [...] (02/09/2023), Gastric bypass (2019), Cystoscopy (2018), Cystoscopy (2018), Cholecystectomy, Repair of cystocele, Tubal ligation. Medications [...] Cap-DR, 30 mg= (more content not included)... [facility] Comment on above: Result Comment: Elec tronically Signed By: AMIE WELLER, Segun Graham\Date and Time Signed: 06/07/23 17:17 EST 06-07-2023 Evaluation + Plan note Diagnostic Tests PendingIron Level 06/07/23Ferritin 06/07/23Vitamin B12 Level 06/07/23 [facility] 04-07-2023 Note Cardiology Clinic No te Subjective Talia Rutherford is a 53 y.o. year old female [...] Types: Cigarettes Smokeless tobacco: Never HPI Talia Rutherford is a 52 y.o. female with past [...] -Resolved, likely exacerbated (more content not included)... [facility] 04-07-2023 Note Patient here for 2 [...] All other systems reviewed and are negative. [facility] 02-08-2023 Note Cardiovascular Medic [facility] SUBJECTIVE Chief Complaint Patient presents with Establish Care Swelling in both legs,right leg is itching and painful Shortness of Breath Dizziness Fatigue Shortness of Breath Associated symptoms include chest pain. Pertinent negatives include no leg swelling, orthopnea, PND or syncope. Dizziness Associated symptoms include chest pain and fatigue. Fatigue Associated symptoms include chest pain and fatigue. Talia Rutherford is a 52 y.o. female with past [...] up in about 6 weeks (around 03/22/2023). Carol Berg APRN-[employer]PERVISOR [facility] Cardiovascular Medicine [facility] 05-31-2022 Note PROCEDURE: XR FOOT L [...] authenticated by: TAMIKO NETTLES Date: 2022-05-31 20:30 [place] [facility] Note PROCEDURE: XR FOOT L [...] by: ELLIOT JOSE Date: 2022-05-11 16:14 [facility] 04-19-2022 Note PROCEDURE: XR FOOT L [...] authenticated by: TAMIKO NETTLES Date: 2022-04-19 18:16 [facility] 03-30-2022 Note PROCEDURE: XR FOOT L [...] by: TAMIKO NETTLES Date: 2022-03-30 06:41 [facility] 03-11-2022 Note PROCEDURE: XR FOOT L [...] authenticated by: ELLIOT JOSE Date: 2022-03-11 08:26 [facility] 03-11-2022 Note PROCEDURE: XR FOOT L T 2V HISTORY: Pain COMPARISON: XR foot left 02/09/2022 FINDINGS: BONES:Multiple intraoperative images demonstrate mechanical fusion of the second and third tarsal-metatarsal joints. SOFT TISSUES:Expected intraoperative findings. EFFUSION:None visible. OTHER: Negative. IMPRESSION: 1. Mechanical fusion of second and third tarsal-metatarsal joints. Electronically authenticated by: ELLIOT JOSE Date: 2022-03-11 07:55 [facility] 02-10-2022 Note PROCEDURE: XR FOOT L T MIN 3 VIEWS COMPARISON: 12/15/2020 HISTORY: Pain FINDINGS: BONES:No acute fracture or dislocation. Stable moderate degenerative changes most significant at the tarsometatarsal joints. Moderate plantar enthesopathic spurring of the calcaneus SOFT TISSUES:Negative. No visible soft tissue swelling. EFFUSION:None visible. OTHER: Negative. IMPRESSION: Stable moderate degenerative changes Electronically authenticated by: TAMIKO NETTLES Date: 2022-02-10 07:37 [facility] 08-30-2021 Evaluation note Encounter Date Diagnosis [...] Patient care instructions given in writting by [facility] Care At Home document Handprint Other Evaluation note* Diagnosis Bipolar disorder with severe depression (CMS/HCC) documented in this encounter [facility] noteNo assessment information [facility] Work Phone: Evaluation note* Diagnosis [...] or maintaining sleep documented in this encounter [facility] HealthcareEvaluation note* Diagnosis Breast screening- Primary Breast [...] Primary Screening for diabetes mellitus Seizure-like activity ([facility]) Fluid level behind tympanic membrane of both [...] in full remission, most recent episode depressed ([facility]) Psychophysiological insomnia Persistent disorder of initiating or maintaining sleep B12 deficiency Fibromyalgia Unspecified myalgia and myositis Screening mammogram for breast cancer Bipolar disorder, current episode depressed, severe, without psychotic features ([facility]) Psychophysiological insomnia Persistent disorder of initiating or maintaining sleep Fibromyalgia Unspecified myalgia and myositis Iron deficiency anemia secondary to inadequate dietary iron intake B12 deficiency B12 deficiency- Primary Bipolar disorder, current episode depressed, severe, without psychotic features ([facility]) Psychophysiological insomnia Persistent disorder of initiating or [...] gastric bypass Bipolar disorder with severe depression ([facility]) Encounter for screening mammogram for breast cancer- Primary Screening for diabetes mellitus Seizure-like activity ([facility]) Fluid level behind tympanic membrane of both [...] constipation type documented in this encounter [facility]* [...] myalgia and myositis Constipation, unspecified constipation type Iron deficiency anemia secondary to inadequate dietary iron intake- Primary Fibromyalgia Unspecified myalgia and myositis Psychophysiological insomnia Persistent disorder of initiating or maintaining sleep BMI 34.0-34.9,adult documented in this encounter [facility]* [...] myalgia and myositis Constipation, unspecified constipation type Iron deficiency anemia secondary to inadequate dietary iron intake- Primary Fibromyalgia Unspecified myalgia and myositis Psychophysiological insomnia Persistent disorder of initiating or maintaining sleep BMI 34.0-34.9,adult B12 deficiency- Primary Iron deficiency anemia, unspecified iron deficiency anemia type documented in this encounter [facility]* [...] myalgia and myositis Constipation, unspecified constipation type Iron deficiency anemia secondary to inadequate dietary iron intake- Primary Fibromyalgia Unspecified myalgia and myositis Psychophysiological insomnia Persistent disorder of initiating or maintaining sleep BMI 34.0-34.9,adult Acute non-recurrent maxillary sinusitis- Primary Cigarette nicotine dependence without complication Class 1 obesity due to excess calories without serious comorbidity in adult, unspecified BMI Environmental and seasonal allergies Cutaneous abscess of abdominal wall documented in this encounter [facility]* Diagnosis Breast screening- Primary Breast screening, unspecified Bipolar disorder, in full remission, most recent episode depressed ([facility]) Psychophysiological insomnia Persistent disorder of initiating or [...] myalgia and myositis Constipation, unspecified constipation type Iron deficiency anemia secondary to inadequate dietary iron intake- Primary Fibromyalgia Unspecified myalgia and myositis Psychophysiological insomnia Persistent disorder of initiating or maintaining sleep BMI 34.0-34.9,adult Acute non-recurrent maxillary sinusitis- Primary Cigarette nicotine dependence without complication Class 1 obesity due to excess calories without serious comorbidity in adult, unspecified BMI Environmental and seasonal allergies Cutaneous abscess of abdominal wall Fibromyalgia Unspecified myalgia and myositis documented in this encounter [facility] HealthcareEvaluation note* Diagnosis Breast screening- Primary Breast [...] myalgia and myositis Constipation, unspecified constipation type Iron deficiency anemia secondary to inadequate dietary iron intake- Primary Fibromyalgia Unspecified myalgia and myositis Psychophysiological insomnia Persistent disorder of initiating or maintaining sleep BMI 34.0-34.9,adult Acute non-recurrent maxillary sinusitis- Primary Cigarette nicotine dependence without complication Class 1 obesity due to excess calories without serious comorbidity in adult, unspecified BMI Environmental and seasonal allergies Cutaneous abscess of abdominal wall Fibromyalgia Unspecified myalgia and myositis documented in this encounter [facility] general Narrative - Reported* Type Description Date Medical History anxiety Medical History GERD Handprint Other Hospital course Narrative No data available for this section General [facility] Discharge instructions No data available for this section [facility] [place] Progress note No data available for this section [facility] [place] Reason for referral (narrative)* Consultation (Routine) - Pending Review Specialty Diagnoses / Procedures Referred By Carlos white Referred To Contact Rheumatology Diagnoses Fibromyalgia Procedures DE OFFICE/OUTPATIENT NEW HIGH MDM 60 MINUTES Angel Luis Groves NP [address] [place] [phone] Tyson Collazo MD [address] [place] [address] Referral ID Status Reason Start Date Expiration Date Visits Requested Visits Authorized [id number] Pending Review Specialty Services Required 03/13/2024 09/09/2024 [...] section and content) DATE CREATED AUTHOR 11/16/2018 [facility] DATE CREATED AUTHOR AUTHOR'S ORGANIZ ATION 06/05/2022 [facility] DATE CREATED AUTHOR AUTHOR'S ORGANIZ ATION 04/09/2023 [facility] DATE CREATED AUTHOR AUTHOR'S ORGANIZ ATION 03/20/2024 [facility] DATE CREATED AUTHOR AUTHOR'S ORGANIZ ATION 04/29/2024 [facility] DATE CREATED AUTHOR AUTHOR'S ORGANIZ ATION 08/14/2024 [facility] d[facility] Specialists EPIC REASON FOR VISIT (unrecogniz ed section and content) Reason Comments Med Refill Reason Onset Date Comments Med Refill 06/03/2024 Reason Onset Date Comments Med Refill 06/25/2024 Reason Comments Follow-up CONSTIPATION, PT HAS HAD THREE BM'S SINCE LAST VISIT. PT IS STILL HAVING ABDOMINAL PAIN. PT SCHEDULED TO SEE GUDELIA GONZALEZ ON 03/18 AT 1500. Reason Comments Follow-up Reason Onset Date Comments Med Refill 07/25/2024 Reason Comments Follow-up 3 mHot flashes Reason Comments Sore Throat Reason Onset Date Comments Med Refill 08/14/2024 Patient Care team informatio n (unrecognized section and content) Mobility Architect Relationship Specialty Start Date End Date Shaikh Main MD PCP - General Internal Medicine 04/20/23 Team Status: Active Member Role Status Dates Conrad Ahn DO Attending Provider Active Sta rt: February 26, 2024 Team Status: Inactive Member Role Status Dates Tyson Collazo MD Attending Provider Active St art: April 18, 2024 End: April 18, 2024 Mobility Architect Relationship Specialty Start Date End Date Molina De Anda MD [address] [place] [address] PCP - General Family Medicine 02/21/24 Angel Luis Groves NP [address] [place] [address] Nurse Practitioner Family Medicine 02/21/24 Mobility Architect Relationship Specialty Start Date End Date Molina De Anda MD [address] [place] [phone] PCP - General Family Medicine 02/21/24 Angel Luis Groves NP [address] [place] [address] Nurse Practitioner Family Medicine 02/21/24 Mobility Architect Relationship Specialty Start Date End Date Molina De Anda MD [address] [place] [address] PCP - General Family Medicine 02/21/24 Angel Luis Groves NP [address] [place] [address] Nurse Practitioner Family Medicine 02/21/24 Mobility Architect Relationship Specialty Start Date End Date Molina De Anda MD [address] [place] [address] PCP - General Family Medicine 02/21/24 Angel Luis Groves NP [address] [place] [address] Nurse Practitioner Family Medicine 02/21/24 Mobility Architect Relationship Specialty Start Date End Date Moilna De Anda MD [address] [place] [address] PCP - General Family Medicine 02/21/24 Angel Luis Groves NP [address] [place] [address] Nurse Practitioner Family Medicine 02/21/24 Mobility Architect Relationship Specialty Start Date End Date Molina De Anda MD [address] [place] [address] PCP - General Family Medicine 02/21/24 Angel Luis Groves NP [address] [place] [address] Nurse Practitioner Family Medicine 02/21/24 Mobility Architect Relationship Specialty Start Date End Date Molina De Anda MD [address] [place] [address] PCP - General Family Medicine 02/21/24 Angel Luis Groves NP [address] [place] [address] Nurse Practitioner Family Medicine 02/21/24 Mobility Architect Relationship Specialty Start Date End Date Molina De Anda MD [address] [place] [address] PCP - General Family Medicine 02/21/24 Angel Luis Groves NP [address] [place] [address] Nurse Practitioner Family Medicine 02/21/24 Mobility Architect Relationship Specialty Start Date End Date Molina De Anda MD [address] [place] [address] PCP - General Family Medicine 02/21/24 Angel Luis Groves NP [address] [place] [address] Nurse Practitioner Family Medicine 02/21/24 Mobility Architect Relationship Specialty Start Date End Date Molina De Anda MD [address] [place] [address] PCP - General Family Medicine 02/21/24 Angel Luis Groves NP [address] [place] [address] Nurse Practitioner Family Medicine 02/21/24 Mobility Architect Relationship Specialty Start Date End Date Molina De Anda MD [address] [place] [address] PCP - General Family Medicine 02/21/24 Angel Luis Groves NP [address] [place] [address] Nurse Practitioner Family Medicine 02/21/24 Mobility Architect Relationship Specialty Start Date End Date Molina De Anda MD [address] [place] [address] PCP - General Family Medicine 02/21/24 Angel Luis Groves NP [address] [place] [address] Nurse Practitioner Family Medicine 02/21/24 Mobility Architect Relationship Specialty Start Date End Date Molina De Anda MD [address] [place] [address] PCP - General Family Medicine 02/21/24 Angel Luis Groves NP [address] [place] [address] Nurse Practitioner Family Medicine 02/21/24 Mobility Architect Relationship Specialty Start Date End Date Molina De Anda MD [address] [place] [address] PCP - General Family Medicine 02/21/24 Angel Luis Groves NP [address] [place] [address] Nurse Practitioner Family Medicine 02/21/24 Mobility Architect Relationship Specialty Start Date End Date Molina De Anda MD [address] [place] [address] PCP - General Family Medicine 02/21/24 Angel Luis Groves NP [address] [place] [address] Nurse Practitioner Family Medicine 02/21/24 Mobility Architect Relationship Specialty Start Date End Date Molina De Anda MD [address] [place] [address] PCP - General Family Medicine 02/21/24 Angel Luis Groves NP [address] [place] [address] Nurse Practitioner Family Medicine 02/21/24 Mobility Architect Relationship Specialty Start Date End Date Molina De Anda MD [address] [place] [address] PCP - General Family Medicine 02/21/24 Angel Luis Groves NP [address] [place] [address] Nurse Practitioner Family Medicine 02/21/24 Goals (unrecognized [...] BE BASED ON THE PRIMARY CLINICAL RECORDS. [employer] provides no warranty or guarantee of the accuracy or completeness of information in this document.
== END 2024-09-04 15:53 | disposition home or self-care (01) ==
LOC: EC 15:52
PROVIDERS: Visit Provider Podiatrist Foot & Ankle Surgery
DX: M79.672 Pain in left foot (principal); M24.675 Ankylosis, left foot; M21.42 Flat foot [pes planus] (acquired), left foot; M77.32 Calcaneal spur, left foot
CPT/HCPCS: 73630

== ENCOUNTER 2024-09-09 15:49 | Outpatient (OUT) | payer OTHER, SELFPAY ==
--- NOTE | 2024-09-09 | CT_ITS ---
The [address] [address] Patient Name: KALYN RUTHERFORD MRN: [id number] date: 1970 Sex: F Assigned Patient Location: CT Current Patient Location: CT Accession/Order Number: [id number] Exam Date: 09/09/2024 15:56 Report Date: 09/09/2024 17:39 At the request of: TAWANA FOSTER Procedure: CT foot LT wo con CT left foot WITHOUT IV CONTRAST HISTORY: Left foot DJD COMPARISON: There are no prior studies available for comparison. TECHNIQUE: Axial CT images of the left foot was obtained without IV contrast. Coronal and sagittal reformats were constructed. FINDINGS: OSSEOUS STRUCTURES: There is osseous demineralization. No acute fracture. Intact plate and screw fixation hardware across the second and third TMT joints. JOINTS: No acute abnormality. There is moderate to severe osteoarthritis of the midfoot. SUBCUTANEOUS/SOFT TISSUES: There is mild soft tissue edema in the dorsal midfoot. No measurable fluid collection. No gas. .. CT/CT foot LT wo con IMPRESSION: 1. No acute osseous or joint abnormality. 2. Intact midfoot hardware. 3. Moderate to severe osteoarthritis of the midfoot. Electronically authenticated by: AMOL HE Date: 09/09/2024 17:39
== END 2024-09-09 15:50 | disposition home or self-care (01) ==
LOC: CT 15:49
PROVIDERS: Visit Provider Podiatrist Foot & Ankle Surgery
DX: M19.072 Primary osteoarthritis, left ankle and foot (principal); M79.672 Pain in left foot
CPT/HCPCS: 73700

== ENCOUNTER 2024-10-03 08:24 | Outpatient (OUT) | payer OTHER, SELFPAY ==
--- OUTSIDE RECORDS SUMMARY | 2024-10-03 08:42 | XMS_ITS | CCD ---
Author Organization [facility] Care Team Providers Care Channel Manager Name Role Phone PHYSICIAN, DEFAULT Admitting Unavailable [...] DR VILLALOBOS Primary Care Unavailable DR ELLIOT ALSTON Consulting Unavailable TAWANA HOFF Consulting Unavailable CAROL BERG Attending Unavailable CAROL BERG Attending Unavailable SHAIKH MAIN Primary Care Physician Shaikh Main MD Primary Care Provider [phone] Ron Palomares Attending Unavailable Segun DUARTE Attending Unavailable Segun DUARTE Attending Unavailable MD Tyson Collazo Attending Provider Tyson Collazo Attending Unavailable Tyson Collazo Admitting Unavailable Molina De Anda MD Primary Care Provider Germain DISPENSING OPERATOR, Angel Luis Unavailable [phone] ANGEL LUIS GROVES Attending Unavailabl e FAWANNITA, Attending Unavailable SHAIKH MAIN Attending Unavailable ETELVINA, Attending Unavailable GROVES, ANGEL LUIS Attending Unavailabl e GROVES, ANGEL LUIS Attending Unavailabl e GROVES, ANGEL LUIS Attending Unavailabl e GROVES, ANGEL LUIS Attending Unavailabl e GROVES, ANGEL LUIS Attending Unavailabl e AICHHOLPASCALE oJhnson Attending Unavailable [place] DISPENSING OPERATOR, Angel Luis Unavailable Allergies Allergy Classification Reported Allergen(s) Allergy Type Date of Onset Reaction(s) Facility (2 sources) penciclovir; Translations: [penciclovir] Drug Allergy 2 [facility] Repository (5 sources) Penicillins; Translations: [PENICILLINS] Drug allergy (disorder) 4 [facility] Repository (20 sources) Penicillin G Drug Allergy 3 Unknown [facility] (20 sources) Penicillins Propensity to adverse reactions 3 [facility] Medications Current Medications Medication Drug Class(es) Dates Sig (Normalized) Sig (Original) [id number] 200 actuat albuterol 0.09 mg/actuat metered dose [...] Act ada citalopram 40 mg oral tablet (20 sources) Serotonin Reuptake Inhibitor Start: 02-29-2024 End: 03-03-2025 take 1 tablet by mouth in the morning citalopram (CeleXA) 40 MG tablet Indications: Bipolar disorder with severe depression (CMS/HCC) Take 1 tablet (40 mg) by mouth in the morning. 90 tablet 09/04/2024 03/03/2025 Active Start: 08-14-2023 End: 11-26-2023 take 1 tablet by mouth in the morning citalopram (CeleXA) 40 MG tablet Indications: Bipolar disorder with severe depression (CMS/HCC) Take 1 tablet (40 mg) by mouth in the morning. 90 tablet 0 08/28/2023 11/26/2023 Active Citalopram Sparta bromide Active Cymbalta 30 mg Cap-DR (2 sources) Start: 05-24-2023 take 1 capsule by mouth once daily Cymbalta 30 mg Cap-DR = 1 cap(s), Oral, Daily, Refills(s) 0 Start Date: 05/24/23 Status: Ordered DULoxetine 30 mg delayed release oral capsule (20 sources) Serotonin and Norepinephrine Reuptake Inhibitor Start: 03-13-2024 End: 06-03-2025 take 1 capsule by mouth once daily DULoxetine (Cymbalta) [address] capsule Indications: Fibromyalgia TAKE 1 CAPSULE BY MOUTH ONCE A DAY *DO NOT CRUSH OR CHEW* 90 capsule 08/28/2024 Active Start: 02-29-2024 End: 08-28-2024 take 1 capsule by mouth once daily DULoxetine (Cymbalta) [address] capsule Indications: Fibromyalgia TAKE 1 CAPSULE BY MOUTH EVERY DAY 90 capsule 08/28/2024 Active Start: 07-03-2023 End: 10-01-2023 take 1 [...] sources) Histamine-1 Receptor Antagonist Start: 02-29-2024 End: 12-31-2024 take 1 tablet by mouth once daily fexofenadine (Layla Allergy) 180 MG tablet Indications: Seasonal allergies Take 1 tablet (180 mg) by mouth Daily 30 tablet 5 10/02/2024 12/31/2024 Active Start: 06-07-2023 take 1 tablet by [...] days 2 tablet 0 08/14/2023 08/28/2023 Active lactulose 667 mg/ml oral solution (4 sources) Osmotic Laxative Start: 03-06-2024 End: 03-16-2024 take 20 g by mouth at bedtime lactulose (Chronulac) 10 GM/15ML solution Indications: Constipation, unspecified constipation type Take 30 mL (20 g) by mouth in the morning and 30 mL (20 g) before bedtime. Do all this for 10 days. 600 mL 03/06/2024 03/16/2024 Active meloxicam 15 mg oral tablet (4 sources) Nonsteroidal Anti-inflammatory Drug Start: 10-02-2024 take 1 tablet by mouth once daily meloxicam (Mobic) 15 MG tablet Take 15 mg by mouth Daily 10/02/2024 Active Meloxicam Active pregabalin (1 source) Pregabalin Activ e Syringe 22G X 3/4 3 ML misc (1 source) Start: End: 4 Syringe 22G X 3/4 3 ML misc Indications: B12 deficiency 1 each every 7 (seven) days 4 each 0 08/14/2023 09/13/2023 Active vitamin b12 1 mg/ml injectable solution (2 sources) Vitamin B12 Start: inject 1000 ug by intramuscular injection every [...] Drug Class(es) Dates Sig (Normalized) Sig (Original) azithromycin 250 mg oral tablet (8 sources) Macrolide Antimicrobial Start: 08-12-2024 End: 09-04-2024 azithromycin (Zithromax) 250 MG tablet Indications: Acute non-recurrent maxillary sinusitis 2 pills day #1, 1 pill day #2-#5 6 tablet 08/12/2024 09/04/2024 Discontinued fluticasone propionate 0.05 mg/actuat metered dose nasal spray (17 sources) Corticosteroid Start: 08-12-2024 End: 11-01-2024 take 2 spray(s) nasal route once daily fluticasone (Flonase) 50 MCG/ACT nasal spray Indications: Environmental and seasonal allergies Administer 2 sprays into each nostril Daily Shake gently. Before first use, prime pump. After use, clean tip and replace cap. 16 g 2 09/09/2024 10/02/2024 Discontinued (Reorder) gabapentin 300 mg oral capsule (20 sources) Anti-epileptic Agent Start: 06-11-2024 End: 12-03-2024 take 1 capsule by mouth in the morning, then take 1 capsule by mouth in the evening, then take 1 capsule by mouth at bedtime gabapentin (Neurontin) 300 MG capsule Indications: Fibromyalgia Take 1 capsule (300 mg) by mouth in the morning and 1 capsule (300 mg) in the evening and 1 capsule (300 mg) before bedtime. 90 capsule 2 09/04/2024 10/02/2024 Discontinued (Reorder) hyoscyamine sulfate 0.125 mg oral tablet (20 sources) Start: 02-26-2024 End: 08-12-2024 take 1 tablet by mouth every six hours as needed hyoscyamine (Anaspaz,Levsin) 0.125 MG tablet Take 0.125 mg by mouth every 6 (six) hours if needed 02/26/2024 08/12/2024 Discontinued (Therapy completed) lansoprazole 30 mg delayed release oral capsule (20 sources) Proton Pump Inhibitor Start: 05-24-2023 End: 03-03-2025 take 1 capsule by mouth before mealtime lansoprazole (Prevacid) [address] capsule Take 1 capsule (30 mg) by mouth in the morning. Take before meals. 90 capsule 1 10/02/2024 10/02/2024 Discontinued (Reorder) Lansoprazole Act ada magnesium citrate 58.2 mg/ml oral solution (20 [...] 90 tablet 02/29/2024 08/12/2024 Discontinued (Therapy completed) phentermine hydrochloride 37.5 mg oral tablet (20 sources) Sympathomimetic Amine Anorectic Start: 07-31-2024 End: 11-01-2024 take 1 tablet by mouth before mealtime phentermine (Adipex-P) 37.5 MG tablet Indications: BMI 34.0-34.9,adult Take 1 tablet (37.5 mg) by mouth in the morning. Take before meals. 30 tablet 09/04/2024 10/02/2024 Discontinued (Reorder) polyethylene glycol 3350 23202 mg powder for oral solution (9 sources) [...] if needed 02/26/2024 08/12/2024 Discontinued (Therapy completed) 24 hr tolterodine tartrate 4 mg extended release oral capsule (20 sources) Cholinergic Muscarinic Antagonist Start: 05-24-2023 End: 12-31-2024 take 1 capsule by mouth once daily tolterodine LA (Detrol LA) 4 MG 24 hr capsule Indications: Overactive bladder due to prolapse of female genital organ Take 1 capsule (4 mg) by mouth Daily 90 capsule 1 09/04/2024 10/02/2024 Discontinued (Reorder) Tolterodine Tart rate ER Active Problems Active Problems Problem Classification Problem Date Documented Da te Episodic/Chronic Adjustment disorders (15 sources) Stress and adjustment reaction; Translations: [Reaction to severe stress, unspecified] Onset: Chronic Administrative/social admission (15 sources) Stress; Translations: [Finding relating to psychosocial functioning] Onset: 5 03-18-2024 Episodic Anxiety disorders (2 sources) Anxiety 05-24-2023 Chronic Cardiac dysrhythmias (2 sources) Palpitations; Translations: [Palpitations] Onset: 3 Episodic Deficiency and other anemia (4 sources) Iron deficiency anemia secondary to inadequate dietary iron intake; Translations: [Other iron deficiency anemias] 07-31-2024 Episodic Esophageal disorders (20 sources) Gastroesophageal reflux disease; Translations: [Gastro-esophageal reflux disease without esophagitis] Onset: 3 05-24-2023 Chronic Headache; including migraine (14 sources) Menstrual status migrainosus; Translations: [Menstrual migraine, not intractable, with status migrainosus] Onset: 5 08-12-2024 Chronic Malaise and fatigue (14 sources) Malaise and fatigue; Translations: [Other malaise] Onset: 5 08-12-2024 Episodic Menstrual disorders (20 sources) Menorrhagia; Translations: [Excessive and frequent menstruation with regular cycle] Onset: 3 06-30-2023 Chronic Miscellaneous mental health disorders (20 sources) Psychophysiologic insomnia; Translations: [Psychophysiologic insomnia] Onset: 3 07-04-2023 Chronic Mood disorders (20 sources) Bipolar disorder; Translations: [Bipolar affective disorder, current episode depression] Onset: 3 05-24-2023 Chronic Nutritional deficiencies (20 sources) Cobalamin deficiency; Translations: [Deficiency of other specified B group vitamins] Onset: 3 07-04-2023 Episodic Osteoarthritis (5 sources) Primary osteoarthritis, left ankle and foot; Translations: [PRIMARY OSTEOARTHRITIS LT ANK FOOT] Onset: 2 Chronic Other acquired deformities (1 source) Contracture, left ankle; Translations: [CONTRACTURE LEFT ANKLE] Onset: 2 Chronic Other aftercare (1 source) Other fpc (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; Translations: [OTH MANAGER TRAFFIC CURRENT DRUG THERAPY] Onset: 2 Episodic Other connective tissue disease (4 sources) Pain in left foot; Translations: [PAIN IN LEFT FOOT] Onset: 2 Episodic Other connective tissue disease (20 sources) Fibromyalgia; Translations: [Fibromyalgia] Onset: 3 05-25-2023 Episodic Other diseases of bladder and urethra (20 sources) Overactive bladder; Translations: [Overactive bladder] Onset: 4 05-24-2023 Chronic Other diseases of bladder and urethra (14 sources) Detrusor overactivity; Translations: [Overactive bladder] Onset: 5 08-12-2024 Chronic Other diseases of bladder and urethra (6 sources) Overactive bladder due to prolapse of female genital organ; Translations: [Overactive bladder] Onset: 5 09-04-2024 Chronic Other female genital disorders (14 sources) Female genital organ symptoms; Translations: [Unspecified [...] Chronic Other nutritional; endocrine; and metabolic disorders (20 sources) Body mass index 30+ - obesity; Translations: [Body mass index (BMI) 34.0-34.9, adult] Onset: 5 06-07-2023 Chronic Other nutritional; endocrine; and metabolic disorders (2 sources) Obesity 05-24-2023 Chronic Other nutritional; endocrine; and metabolic disorders (18 sources) Obesity caused by energy imbalance; Translations: [Class 1 obesity due to excess calories without serious comorbidity in adult, unspecified BMI] Onset: 5 08-12-2024 Chronic Other screening for suspected conditions (not mental disorders or infectious disease) (20 sources) Abnormal electrocardiogram [ECG] [EKG]; Translations: [Patient encounter status] Onset: 3 Resolved: 5 Episodic Other upper respiratory disease (19 sources) Allergic disposition; Translations: [Other allergic rhinitis] Onset: 5 08-12-2024 Chronic Other upper respiratory disease (2 sources) Seasonal allergy; Translations: [Other seasonal allergic rhinitis] 10-02-2024 Chronic Peripheral and visceral atherosclerosis (3 sources) [...] Translations: [Cutaneous abscess of groin] Onset: 4 Resolved: 5 08-15-2023 Episodic Substance-related disorders (20 sources) Nicotine dependence, cigarettes, uncomplicated; Translations: [Nicotine dependence, unspecified, uncomplicated] Onset: 2 Resolved: 5 Chronic Systemic lupus erythematosus and connective tissue [...] Translations: [Candidiasis, unspecified] Onset: 4 08-14-2023 Episodic Other circulatory disease (1 source) Other [...] digestive system] Onset: 4 03-06-2024 Episodic Other upper respiratory infections (20 sources) Acute upper respiratory infection, unspecified; Translations: [Acute upper respiratory infection] Onset: 2 Resolved: 5 Episodic Otitis media and related conditions (20 sources) Acute suppurative otitis media without spontaneous rupture of ear drum; Translations: [Acute suppurative otitis media without spontaneous rupture of ear drum, bilateral] Onset: 4 Resolved: 5 01-08-2024 Episodic Unclassified (1 source) CONTACT W/AND (SUSP) EXPOS COVID-19; Translations: [CONTACT W/AND (SUSP) EXPOS COVID-19] Onset: 1 Results Test Name Value Interpretation Reference Range Facility CT FOOT LT WO CONon 09-09-19 [address] [place] [address] CT Scan Report Signed Patient: TALIA RUTHERFORD MR#: [id number] : 1970 Acct:[id number] Age/Sex: 54 / F ADM Date: 09/09/24 Loc: CT Attending Dr: Tawana Hoff D.P.M. Ordering Physician: Tawana Hoff D.P.M. Date of Service: 09/09/24 Procedure(s): CT foot LT wo con Accession Number(s): [id number] cc: GROVESANGEL LUIS [place] [address] Patient Name: TALIA RUTHERFORD MRN: [facility]:[id number] date: 1970 Sex: F Assigned Patient Location: CT Current Patient Location: CT Accession/Order Number: [id number] Exam Date: 09/09/2024 15:56 Report Date: 09/09/2024 17:39 At the request of: TAWANA HOFF Procedure: CT foot LT wo con CT left foot WITHOUT IV CONTRAST HISTORY: Left foot DJD COMPARISON: There are no prior studies available for comparison. TECHNIQUE: Axial CT images of the left foot was obtained without IV contrast. Coronal and sagittal reformats were constructed. FINDINGS: OSSEOUS STRUCTURES: There is osseous demineralization. No acute fracture. Intact plate and screw fixation hardware across the second and third TMT joints. JOINTS: No acute abnormality. There is moderate to severe osteoarthritis of the midfoot. SUBCUTANEOUS/SOFT TISSUES: There is mild soft tissue edema in the dorsal midfoot. No measurable fluid collection. No gas. .. CT/CT foot LT wo con IMPRESSION: 1. No acute osseous or joint abnormality. 2. Intact midfoot hardware. 3. Moderate to severe osteoarthritis of the midfoot. Electronically authenticated by: CRUZ MENESES Date: 09/09/2024 17:39 Dictated By: Cruz Meneses M.D. Signed By: 09/09/24 1742 DD/ 1739 TD/TT: Slitter And Rewinder: [facility] Radiology, Radiolograndall mancia MD - 09/09/2024 [place] [address] CT Scan Report Signed Patient: TALIA RUTHERFORD MR#: [id number] : 1970 Acct:[id number] Age/Sex: 54 / F ADM Date: 09/09/24 Loc: CT Attending Dr: Tawana Hoff D.P.M. Ordering Physician: Tawana Hoff D.P.M. Date of Service: 09/09/24 Procedure(s): CT foot LT wo con Accession Number(s): [id number] cc: ANGEL LUIS GROVES [place] [id number] Patient Name: TALIA RUTHERFORD MRN: [id number] date: 1970 Sex: F Assigned Patient Location: CT Current Patient Location: CT Accession/Order Number: [id number] Exam Date: 09/09/2024 15:56 Report Date: 09/09/2024 17:39 At the request of: TAWANA HOFF Procedure: CT foot LT wo con CT left foot WITHOUT IV CONTRAST HISTORY: Left foot DJD COMPARISON: There are no prior studies available for comparison. TECHNIQUE: Axial CT images of the left foot was obtained without IV contrast. Coronal and sagittal reformats were constructed. FINDINGS: OSSEOUS STRUCTURES: There is osseous demineralization. No acute fracture. Intact plate and screw fixation hardware across the second and third TMT joints. JOINTS: No acute abnormality. There is moderate to severe osteoarthritis of the midfoot. SUBCUTANEOUS/SOFT TISSUES: There is mild soft tissue edema in the dorsal midfoot. No measurable fluid collection. No gas. .. CT/CT foot LT wo con IMPRESSION: 1. No acute osseous or joint abnormality. 2. Intact midfoot hardware. 3. Moderate to severe osteoarthritis of the midfoot. Electronically authenticated by: CRUZ MENESES Date: 09/09/2024 17:39 Dictated By: Cruz Meneses M.D. Signed By: 09/09/24 174 DD/ 1739 TD/TT: Slitter And Rewinder: [facility] Radiology Study observation (narrative) [facility] CT FOOT LT WO CONOrdered By: Radiologist Radiology on 09-09-2024 [facility] Work Phone: XR FOOT LT MIN 3Von 09-05-19 [place] [id number] XRay Report Signed Patient: TALIA RUTHERFORD MR#: [id number] : 1970 Acct:[id number] Age/Sex: 54 / F ADM Date: 09/04/24 Loc: EC Attending Dr: Tawana Hoff D.P.M. Ordering Physician: Tawana Hoff D.P.M. Date of Service: 09/04/24 Procedure(s): XR foot LT min 3V Accession Number(s): [id number] cc: ANGEL LUIS GROVES; Tawana Hoff D.P.M. [place] [address] Patient Name: TALIA RUTHERFORD MRN: [facility]:[id number] date: 1970 Sex: F Assigned Patient Location: Current Patient Location: Accession/Order Number: [id number] Exam Date: 09/04/2024 15:53 Report Date: 09/05/2024 10:16 At the request of: TAWANA HOFF Procedure: XR foot LT min 3V PROCEDURE: XR foot LT min 3V HISTORY: LEFT FOOT PAIN COMPARISON: XR foot left 05/31/2022 . FINDINGS: BONES:Prior mechanical fusion of the second third tarsal-metatarsal joints; no appreciable hardware fracture loosening. Large calcaneal plantar spur. Moderate flattening of the plantar arch. No bone fracture, dislocation, or lesion SOFT TISSUES:No visible soft tissue swelling. EFFUSION:None visible. OTHER: Negative. XR/XR foot LT min 3V IMPRESSION: 1. Stable surgical changes without is of hardware failure or change in alignment. 2. Moderate pes planus and large calcaneal plantar spur; unchanged. Electronically authenticated by: ELLIOT ALSTON Date: 09/05/2024 10:16 Dictated By: Elliot Alston M.D. Signed By: 09/05/24 1019 DD/ 1016 TD/TT: Slitter And Rewinder: [facility] Radiology, Radiologi MD blanche - 09/05/2024 [place] [address] XRay Report Signed Patient: TALIA RUTHERFORD MR#: [id number] : 1970 Acct:[id number] Age/Sex: 54 / F ADM Date: 09/04/24 Loc: EC Attending Dr: Tawana Hoff D.P.M. Ordering Physician: Tawana Hoff D.P.M. Date of Service: 09/04/24 Procedure(s): XR foot LT min 3V Accession Number(s): [id number] cc: ANGEL LUIS GROVES; Tawana Hoff D.P.M. [place] [address] Patient Name: TALIA RUTHERFORD MRN: [id number] date: 1970 Sex: F Assigned Patient Location: Current Patient Location: Accession/Order Number: [id number] Exam Date: 09/04/2024 15:53 Report Date: 09/05/2024 10:16 At the request of: TAWANA HOFF Procedure: XR foot LT min 3V PROCEDURE: XR foot LT min 3V HISTORY: LEFT FOOT PAIN COMPARISON: XR foot left 05/31/2022 . FINDINGS: BONES:Prior mechanical fusion of the second third tarsal-metatarsal joints; no appreciable hardware fracture loosening. Large calcaneal plantar spur. Moderate flattening of the plantar arch. No bone fracture, dislocation, or lesion SOFT TISSUES:No visible soft tissue swelling. EFFUSION:None visible. OTHER: Negative. XR/XR foot LT min 3V IMPRESSION: 1. Stable surgical changes without is of hardware failure or change in alignment. 2. Moderate pes planus and large calcaneal plantar spur; unchanged. Electronically authenticated by: ELLIOT ALSTON Date: 09/05/2024 10:16 Dictated By: Elliot Alston M.D. Signed By: 09/05/24 1019 DD/ 1016 TD/TT: Slitter And Rewinder: [facility] Radiology Study observation (narrative) [facility] XR FOOT LT MIN 3VOrdered By: Radiologist Radiology on 09-05-2024 [facility] Work Phone: CHRONIC WOUND/ULCER (HTRX)on 08-14-2024 ACINETOBACTER BAUMANNII (CHRONIC WOUND/ULCER) 0 [facility] ACINETOBACTER BAUMANNII (CHRONIC WOUND/ULCER) Not detected [facility] BACTEROIDES FRAGILIS, VULGATUS (CHRONIC WOUND/ULCER) 0 [facility] BACTEROIDES FRAGILIS, VULGATUS (CHRONIC WOUND/ULCER) Not detected [facility] CITROBACTER FREUNDII (CHRONIC WOUND/ULCER) 0 [facility] CITROBACTER FREUNDII (CHRONIC WOUND/ULCER) Not detected [facility] CLOSTRIDIUM PERFRINGENS, NOVYI, SEPTICUM (CHRONIC WOUND/ULCER) 0 [facility] CLOSTRIDIUM PERFRINGENS, NOVYI, SEPTICUM (CHRONIC WOUND/ULCER) Not detected [facility] CORYNEBACTERIUM JEIKEIUM, STRIATUM, TUBERCULOSTEARICUM (CHRONIC WOUND/ULCER 0 [facility] CORYNEBACTERIUM JEIKEIUM, STRIATUM, TUBERCULOSTEARICUM (CHRONIC WOUND/ULCER [...] Healthcare HERPES SIMPLEX VIRUS 1 Not detected [facility] HERPES SIMPLEX VIRUS 2 0 [facility] HERPES SIMPLEX VIRUS 2 Not detected [facility] Interpretation and review of laboratory results [...] SERRATIA MARCESCENS (CHRONIC WOUND/ULCER) Not detected [facility] STAPHYLOCOCCUS AUREUS (CHRONIC WOUND/ULCER) 0 [facility] STAPHYLOCOCCUS AUREUS (CHRONIC WOUND/ULCER) Not detected [facility] STAPHYLOCOCCUS EPIDERMIDIS, HAEMOLYTICUS, LUGDUNENSIS, SAPROPHYTICUS (CHRON 23.533 Abnormal [facility] STAPHYLOCOCCUS EPIDERMIDIS, HAEMOLYTICUS, LUGDUNENSIS, SAPROPHYTICUS (CHRON Detected Abnormal [facility] STREPTOCOCCUS PYOGENES (GROUP A STREP) (CHRONIC WOUND/ULCER) 0 [facility] STREPTOCOCCUS PYOGENES (GROUP A STREP) (CHRONIC WOUND/ULCER) [facility] VARICELLA ZOSTER VIRUS (HUMAN HERPESVIRUS 3) (CHRONIC WOUND/ULCER) 0 [facility] VARICELLA ZOSTER VIRUS (HUMAN HERPESVIRUS 3) (CHRONIC WOUND/ULCER) Not [facility] VIBRIO CHOLERAE, PARAHAEMOLYTICUS, VULNIFICUS (CHRONIC WOUND/ULCER) 0 [facility] VIBRIO CHOLERAE, PARAHAEMOLYTICUS, VULNIFICUS (CHRONIC WOUND/ULCER) Not detected [facility] ALL CBC WITH AUTO DIFFon BASOPHILS ABSOLUTE AUTO 0 [facility] Basophils/100 WBC (Bld) 0.6 % 0.2 - 2.0 % [facility] Eosinophils/100 WBC (Bld) 0 % Low 0.9 - 7.0 % [facility] Erythrocyte distribution width (RBC) [Ratio] 13.6 % 11.0 - 15.0 % [facility] Hematocrit (Bld) [Volume fraction] 37.4 % 36.0 - 48.0 % [facility] Hemoglobin (Bld) [Mass/Vol] 12.1 g/dL 12.0 - 16.0 g/dL [facility] IMMATURE GRANULOCYTES ABS AUTO 0.01 [facility] Immature granulocytes/100 WBC (Bld) 0.2 % 0.0 - 0.5 % [facility] Interpretation and review of laboratory results Abnormal [facility] LYMPHOCYTES ABSOLUTE AUTO 1.1 Low [facility] Lymphocytes/100 WBC (Bld) 19.9 % Low 20.5 - 60.0 % [facility] MCH (RBC) [Entitic mass] 29.4 pg 26.7 - 34.0 pg [facility] MCHC (RBC) [Mass/Vol] 32.4 g/dL 29.9 - 35.2 g/dL [facility] MCV (RBC) [Entitic vol] 91 fL 81.0 - 99.0 fL [facility] MONOCYTES ABSOLUTE AUTO 0.2 Low [facility] Monocytes/100 WBC (Bld) 4.2 % 1.7 - 12.0 % [facility] NEUTROPHILS ABSOLUTE AUTO 4.1 [facility] Neutrophils/100 WBC (Bld) 75.1 % High 43.0 - 75.0 % [facility] Platelet mean volume (Bld) [Entitic vol] 9.7 fL 9.5 - 13.5 fL [facility] TBH EO # 0 [facility] TBH PLT 256 [facility] TB RBC 4.11 Low [facility] TB WBC 5.4 [facility] SS-A/Ro Sjogrens Antibodyon 04-18-2024 SS-A/Ro Sjogrens Antibody <0.2 Normal 0.0-0.9 [facility] Comment on above: Performed By: #### S SB, SSA #### [facility] , SS-B/La Sjogrens Antibodyon 04-18-2024 SS-B/La Sjogrens Antibody <0.2 Normal 0.0-0.9 [facility] Comment on above: Result Comment: Perf ormed at: CB - [facility] [address] [id number] Iv Technician: Hector Franco PhD, Phone: [phone] PERFORMED BY: [address] [address] PATHOLOGIST CURRENCY EXAMINER LEAH SANFORD M.D. Performed By: #### S SB, SSA #### [facility] , Ambulatory Visit Summaryon 0 03-18-2024 Ambulatory Visit Summary Ambulatory Visit Summary TALIA RUTHERFORD :1970 Visit Date:03/18/2024 Ambulatory Visit Instructions Your Diagnosis Constipation Left upper quadrant pain Stress Your Care Team Attending Physician - Jelani WELLER, Ron Martin Primary Care Physician - ETELVINA WELLER, This Is Your Medications List Contact [...] you for choosing us for your care. Ezequiel Conrad [facility] Gastroenterology Office/Clin ic Noteon 03-18-2024 Gastroenterology [...] vaccine, inactivated - Not Given Patient Refuses [facility] Comment on above: Result Comment: Elec tronically Signed By: Jelani WELLER, Ron Acosta\Date and Time Signed: 03/18/24 15:21 EDT Outside Colonoscopyon 2023 Outside Colonoscopy [id number]#1.00TIFF [facility] Reminderson 07-20-2023 Reminders - From: Machelle Arauz LPN To: N - Clinical; Sent: 07/20/2023 10:55:11 EST Show up: 06/19/2033 07:00:00 EST Subject: colonoscopy recall Due Date/Time: 07/19/2033 07:00:00 EST Reminder/Recall Patient due for screening colonoscopy 07/19/2033. [facility] Lab Reportson 06-26-2023 Lab Reports [id number]#1.00TIFF [facility] Insurance Correspondenceon 1 08-09-2022 Insurance Correspondence [id number]#1.00TIFF [facility] Facesheeton 06-08-2023 Facesheet [id number]#1.00TIFF [facility] Physician Referralon 023 Physician Referral [id number]#1.00TIFF [facility] Ambulatory Visit Summaryon 1 08-07-2022 Ambulatory Visit Summary TALIA RUTHERFORD :1970 Visit Date:06/07/2023 Ambulatory Visit Instructions Your Care Team Attending Physician - AMIE WELLER, Segun Denis Primary Care Physician - ETELVINA WELLER, This Is Your Medications List aripiprazole [...] you for choosing us for your care. [facility] Lab Reportson 05-31-2023 Lab Reports [id number]#1.00TIFF [facility] Consultation Noteon 05-25-20 Consultation Note [id number]#1.00TIFF [facility] Physician Referralon 023 Physician Referral [id number]#1.00TIFF Normal [facility] Office Visiton 04-07-2023 Follow-up visit [id number] Norma Rutherford 1970 Provider Department Center 04/07/2023 [id number]-VOSRKKSSBCAROL SHAH IAN [facility] Family History Problem Relation Age of Onset Brain Aneurysm Mother 80 Diabetes Mother Heart failure Father 80 Diabetes Father Hypertension Father Diabetes Sister Family Status - Relation Status Age at Mother Father Sister Level of Service:95116 DC OFFICE/OUTPATIENT ESTABLISHED MOD MDM 30-39 MIN Normal [facility] 36on 02-08-2023 36 [facility] lab called to re port critical HGB and hematocrit for patient: HGB was 5.1 and hematocrit is 18.9. I spoke with Talia and advised she go to the ED. She verbalized understanding and will do so. Normal [facility] Office Visiton 02-08-2023 Follow-up visit [id number] Norma Rutherford 1970 Provider Department Center 02/08/202319006-AWTFUNIMZCAROL SHAH IAN [place] Family History Problem Relation Age of Onset Brain Aneurysm Mother 80 Diabetes Mother Heart failure Father 80 Diabetes Father Hypertension Father Diabetes Sister Family Status - Relation Status Age at Mother Father Sister Level of Service:82166 DC OFFICE/OUTPATIENT NEW MODERATE MDM 45-59 MINUTES Reason for Visit and Comments: Establish Care [42] - Swelling in both legs,right leg is itching and painful Shortness of Breath [344303] Dizziness [038788] Fatigue [46] Normal [facility] PREG HCG QUALon 03-10-2022 , QUAL Negative Normal NEGATIVE [facility] Comment on above: Performed By: #### P REG ####[facility] [address] [place], [place] [address]Dr. Moni Johnson Covid-19 PCR (CVDTBH)on 02-21 SARS-CoV-2 (COVID-19) RNA EMMANUEL+probe Ql (Unsp spec) Not detected Normal NOT DETECTED [facility] Comment on above: Result Comment: This test is not yet approved or cleared by the [place] FDA. When there are no FDA-approved or cleared tests available, and other criteria are met, FDA can make tests available under an emergency access mechanism called an Emergency Use Authorization (EUA). The EUA for this test is supported by the [place] of Health and Human Service's (HHS's) declaration [...] SARS-CoV-2. Performed By: #### C VDTB #### [facility] Laboratory [address] [address] [address] Moni Johnson PROF CHEM 8 (BAS METB)on Anion gap [Moles/Vol] 9.0 mmol/L Normal [facility] Comment on above: Performed By: #### B MP ####[facility] [address] [address]Dr. Moni Johnson Calcium [Mass/Vol] 8.3 mg/dL Critically low 8.5-10.1 [facility] Comment on above: Performed By: #### B MP ####[facility] [address] [address]Dr. Moni Johnson Chloride [Moles/Vol] 106 mmol/L Normal 98-107 [facility] Comment on above: Performed By: #### B MP ####[facility] [address] [address]DrConsuelo Johnson CO2 [Moles/Vol] 29.2 mmol/L Normal 21.0-32.0 [facility] Comment on above: Performed By: #### B MP ####[facility] [address] [address]DrConsuelo Johnson Creatinine [Mass/Vol] 0.78 mg/dL Normal 0.55-1.02 [facility] Comment on above: Performed By: #### B MP ####[facility] [address] [address]Dr. Moni Johnson EGFR-AF GIBRALTARIAN >60 Normal >=60 [facility] Comment on above: Performed By: #### B MP ####[facility] [address] [address]Dr. Moni Johnson EGFR-NON AF GIBRALTARIAN >60 Normal >=60 [facility] Comment on above: Performed By: #### B MP ####[facility] [address] [address]Dr. Moni Johnson Glucose [Mass/Vol] 88 mg/dL Normal 74-106 [facility] Comment on above: Performed By: #### B MP ####[facility] [address] [address]Dr. Moni Johnson Potassium [Moles/Vol] 4.2 mmol/L Normal 3.5-5.1 [facility] Comment on above: Performed By: #### B MP ####[facility] [address] [address]Dr. Moni Johnson Sodium [Moles/Vol] 140 mmol/L Normal 136-145 [facility] Comment on above: Performed By: #### B MP ####[facility] [address] [address]Dr. Moni Johnson Urea nitrogen [Mass/Vol] 21.0 mg/dL Critically high 7.0-18.0 [facility] Comment on above: Performed By: #### B MP ####[facility] [address] [address]Dr. Moni Johnson Urea nitrogen/Creatinine [Mass ratio] 26.9 mg/mg Normal [facility] Comment on above: Performed By: #### B MP ####[facility] [address]. Moni Johnson CT FOOT LT WO CONon [...] acute bone abnormality. Electronically authenticated by: ELLIOT ALSTON Date: 2022-02-22 18:32 Normal [facility] COVID Quick Testingon 2021 Result Negative Neul Other Quick Fluon 08-30-2021 FLUAV Ab CF (S) [Titer] Negative [facility] Other FLUBV Ab CF (S) [Titer] Negative [facility] 05-24 SARS-CoV-2 (COVID-19) RNA EMMANUEL+probe Ql (Unsp spec) Not detected Normal NOT DETECTED [facility] Comment on above: Result Comment: This test is not yet approved or cleared by the [place] FDA. When there are no FDA-approved or cleared tests available, and other criteria are met, FDA can make tests available under an emergency access mechanism called an Emergency Use Authorization (EUA). The EUA for this test is supported by the [place] of Health and Human Service's (HHS's) declaration [...] SARS-CoV-2. Performed By: #### C VDTB #### [facility] [address] [place] [address] Dr. Moni Johnson Vital Signs Date Time Vital Sign Value Performing Clinician Facility 10-02-2024 16:51-0400 Body height 165.1 cm Pascaleeric Lastholz DISPENSING OPERATOR Work Phone: [facility] 10-02-2024 16:51-0400 Body mass index (BMI) [Ratio] 33.51 kg/m2 Pascale Aichholz DISPENSING OPERATOR Work Phone: [facility] 10-02-2024 16:51-0400 Body temperature 97.81 [degF] Pascale Derrickhholz DISPENSING OPERATOR Work Phone: [facility] 10-02-2024 16:51-0400 Body weight 91.35 kg Pascale Aichholz DISPENSING OPERATOR Work Phone: [facility] 10-02-2024 16:51-0400 Heart rate 68 /min Pascale Aichholz DISPENSING OPERATOR Work Phone: [facility] 10-02-2024 16:51-0400 Respiratory rate 18 /min Pascale Aichholz DISPENSING OPERATOR Work Phone: [facility] 10-02-2024 16:51-0400 SaO2% (BldA) [Mass fraction] 97 % Pascale Derrickhholz DISPENSING OPERATOR Work Phone: [facility] 09-04-2024 16:10-0500 Body height 165.1 cm Angel Luis Groves DISPENSING OPERATOR Work Phone: [facility] 09-04-2024 16:10-0500 Body mass index (BMI) [Ratio] 33.28 kg/m2 Angel Luis Groves DISPENSING OPERATOR Work Phone: [facility] 09-04-2024 16:10-0500 Body temperature 97.2 [degF] Angel Luis Groves DISPENSING OPERATOR Work Phone: [facility] 09-04-2024 16:10-0500 Body weight 90.72 kg Angel Luis Groves DISPENSING OPERATOR Work Phone: [facility] 09-04-2024 16:10-0500 Diastolic blood pressure 60 mm[Hg] Angel Luis Groves DISPENSING OPERATOR Work Phone: [facility] 09-04-2024 16:10-0500 Heart rate 79 /min Angel Luis Groves DISPENSING OPERATOR Work Phone: [facility] 09-04-2024 16:10-0500 Respiratory rate 16 /min Angel Luis Groves DISPENSING OPERATOR Work Phone: [facility] 09-04-2024 16:10-0500 SaO2% (BldA) [Mass fraction] 98 % Angel Luis Groves DISPENSING OPERATOR Work Phone: [facility] 09-04-2024 16:10-0500 Systolic blood pressure 100 mm[Hg] Angel Luis Groves DISPENSING OPERATOR Work Phone: [facility] 08-12-2024 16:04-0500 Body mass index (BMI) [Ratio] 33.32 kg/m2 Pascale Aichholz DISPENSING OPERATOR Work Phone: [facility] 08-12-2024 16:04-0500 Body temperature 98.1 [degF] Pascale Aichholz DISPENSING OPERATOR Work Phone: [facility] 08-12-2024 16:04-0500 Body weight 90.81 kg Pascale Aichholz DISPENSING OPERATOR Work Phone: [facility] 08-12-2024 16:04-0500 Diastolic blood pressure 62 mm[Hg] Pascale Aichholz DISPENSING OPERATOR Work Phone: [facility] 08-12-2024 16:04-0500 Heart rate 80 /min Pascale Aichholz DISPENSING OPERATOR Work Phone: [facility] 08-12-2024 16:04-0500 Respiratory rate 20 /min Pascale Arana DISPENSING OPERATOR Work Phone: [facility] 08-12-2024 16:04-0500 SaO2% (BldA) [Mass fraction] 97 % Pascale Arana DISPENSING OPERATOR Work Phone: [facility] 08-12-2024 16:04-0500 Systolic blood pressure 90 mm[Hg] Pascale Arana DISPENSING OPERATOR Work Phone: [facility] 07-31-2024 14:59-0500 Body height 165.1 cm Angel Luis Groves DISPENSING OPERATOR Work Phone: [facility] 07-31-2024 14:59-0500 Body mass index (BMI) [Ratio] 34.28 kg/m2 Angel Luis Groves DISPENSING OPERATOR Work Phone: [facility] 07-31-2024 14:59-0500 Body temperature 96.21 [degF] Angel Luis Groves DISPENSING OPERATOR Work Phone: [facility] 07-31-2024 14:59-0500 Body weight 93.44 kg Angel Luis Groves DISPENSING OPERATOR Work Phone: [facility] 07-31-2024 14:59-0500 Diastolic blood pressure 62 mm[Hg] Angel Luis Groves DISPENSING OPERATOR Work Phone: [facility] 07-31-2024 14:59-0500 Heart rate 83 /min Angel Luis Groves DISPENSING OPERATOR Work Phone: [facility] 07-31-2024 14:59-0500 Respiratory rate 22 /min Angel Luis Groves DISPENSING OPERATOR Work Phone: [facility] 07-31-2024 14:59-0500 SaO2% (BldA) [Mass fraction] 98 % Angel Luis Groves DISPENSING OPERATOR Work Phone: [facility] 07-31-2024 14:59-0500 Systolic blood pressure 100 mm[Hg] Angel Luis Groves DISPENSING OPERATOR Work Phone: [facility] 04-10-2024 15:56-0400 Body height 165.1 cm Angel Luis Groves DISPENSING OPERATOR Work Phone: [facility] 04-10-2024 15:56-0400 Body mass index (BMI) [Ratio] 33.61 kg/m2 Angel Luis Groves DISPENSING OPERATOR Work Phone: [facility] 04-10-2024 15:56-0400 Body temperature 98.29 [degF] Angel Luis Groves DISPENSING OPERATOR Work Phone: [facility] 04-10-2024 15:56-0400 Body weight 91.63 kg Angel Luis Groves DISPENSING OPERATOR Work Phone: [facility] 04-10-2024 15:56-0400 Diastolic blood pressure 68 mm[Hg] Angel Luis Groves DISPENSING OPERATOR Work Phone: [facility] 04-10-2024 15:56-0400 Heart rate 67 /min Angel Luis Groves DISPENSING OPERATOR Work Phone: [facility] Comment on above: 98% O2 04-10-2024 15:56-0400 Systolic blood pressure 100 mm[Hg] Angel Luis Groves DISPENSING OPERATOR Work Phone: [facility] 03-18-2024 15:06-0400 Blood Pressure Location Ron Palomares [facility] 03-18-2024 15:06-0400 Diastolic blood pressure 69 mm[Hg] Ron Palomares [facility] 03-18-2024 15:06-0400 Heart rate 85 /min Ron Palomares [facility] 03-18-2024 15:06-0400 Respiratory rate 16 /min Ron Palomares [facility] 03-18-2024 15:06-0400 Systolic blood pressure 107 mm[Hg] Ron Palomares [facility] 03-12-2024 15:46-0400 Body height 165.1 cm Angel Luis Groves DISPENSING OPERATOR Work Phone: [facility] 03-12-2024 15:46-0400 Body mass index (BMI) [Ratio] 33.28 kg/m2 Angel Luis Groves DISPENSING OPERATOR Work Phone: [facility] 03-12-2024 15:46-0400 Body temperature 98.01 [degF] Angel Luis Groves DISPENSING OPERATOR Work Phone: [facility] 03-12-2024 15:46-0400 Body weight 90.72 kg Angel Luis Groves DISPENSING OPERATOR Work Phone: [facility] 03-12-2024 15:46-0400 Diastolic blood pressure 70 mm[Hg] Angel Luis Groves DISPENSING OPERATOR Work Phone: [facility] 03-12-2024 15:46-0400 Heart rate 71 /min Angel Luis Groves DISPENSING OPERATOR Work Phone: [facility] Comment on above: 99% O2 03-12-2024 15:46-0400 Systolic blood pressure 100 mm[Hg] Angel Luis Groves DISPENSING OPERATOR Work Phone: [facility] 06-07-2023 16:03-0500 Blood Pressure Location Segun DUARTE [facility] 06-07-2023 16:03-0500 Diastolic blood pressure 88 mm[Hg] Segun DUARTE [facility] [place] 06-07-2023 16:03-0500 Heart rate 72 /min Segun DUARTE [facility] [place] 06-07-2023 16:03-0500 Respiratory rate 16 /min Segun DUARTE [facility] 06-07-2023 16:03-0500 Systolic blood pressure 130 mm[Hg] Segun DUARTE [facility] 08-30-2021 13:00-0500 Body height 165.1 cm Kristin Ginty Other [facility] Other 08-30-2021 13:00-0500 Body mass index (BMI) [Ratio] 30.95 kg/m2 Kristin Ginty Other [facility] Other 08-30-2021 13:00-0500 Body temperature 98 [degF] Kristin Ginty Other [facility] Other 08-30-2021 13:00-0500 Body weight 84.37 kg Kristin Ginty Other [facility] Other 08-30-2021 13:00-0500 Respiratory rate 16 /min Kristin Ginty Other [facility] Other 08-30-2021 13:00-0500 SaO2% (BldA) [Mass fraction] 98 % Kristin Ginty Other [facility] Other Encounters Encounter Date Encounter Type Care Provider Facility Start: 10-02-2024 End: 10-02-2024 Office outpatient visit 25 minutes Pascale Arana DISPENSING OPERATOR Work Phone: [facility] Comment on above: Gastroesophageal ref lux disease, unspecified whether esophagitis present (Primary Dx); Class 1 obesity due to excess calories without serious comorbidity in adult, unspecified BMI; Iron deficiency anemia secondary to inadequate dietary iron intake; Cigarette nicotine dependence without complication; Encounter for screening mammogram for malignant neoplasm of breast; B12 deficiency; Overactive bladder; Seasonal allergies; Environmental and seasonal allergies; Fibromyalgia; Overactive bladder due to prolapse of female genital organ; BMI 34.0-34.9,adult Start: 10-02-2024 End: 10-02-2024 Bamboo flowsheet Pascale Arana DISPENSING OPERATOR Work Phone: [facility] Start: 10-02-2024 End: 10-02-2024 Bamboo flowsheet Pascale Arana DISPENSING OPERATOR Work Phone: [facility] Start: 09-09-2024 End: 09-09-2024 Clinisync Result Encounter Generic External Data Provider [facility] External [facility] Unsolicited Start: 09-09-2024 End: 09-09-2024 Clinisync Result Encounter Generic External Data Provider [facility] External Department Unsolicited Start: 09-06-2024 End: 09-09-2024 Refill Pascale Arana DISPENSING OPERATOR Work Phone: [facility] Comment on above: Environmental and se asonal allergies Start: 09-05-2024 End: 09-05-2024 Clinisync Result Encounter Generic External Data Provider [facility] External Department Unsolicited Start: 09-05-2024 End: 09-05-2024 Clinisync Result Encounter Generic External Data Provider [facility] External Department Unsolicited Start: 09-04-2024 End: 09-04-2024 Office outpatient visit 10 minutes Angel Luis Groves DISPENSING OPERATOR Work Phone: [facility] Comment on above: BMI 33.0-33.9,adult (Primary Dx); Bipolar disorder with severe depression ([facility]); Fibromyalgia; Gastro-esophageal reflux disease without esophagitis; Esophageal reflux; BMI 34.0-34.9,adult; Psychophysiological insomnia; Overactive bladder due to prolapse of female genital organ Start: 09-04-2024 End: 09-04-2024 ambulatory ANGEL LUIS GREWALZPATRICK Not Available Start: 09-04-2024 End: 09-04-2024 Bamboo flowsheet Angel Luis Groves DISPENSING OPERATOR Work Phone: [facility] Start: 09-04-2024 End: 09-04-2024 Bamboo flowsheet Angel Luis Grewalzpatrick DISPENSING OPERATOR Work Phone: [facility] Start: 08-28-2024 End: 08-28-2024 Refill Angel Luis Nolanpatrick DISPENSING OPERATOR Work Phone: [facility] Comment on above: Fibromyalgia Start: 08-14-2024 End: 08-14-2024 Refill Angel Luis Grewalzpatrick DISPENSING OPERATOR Work Phone: [facility] Comment on above: Fibromyalgia Start: 08-12-2024 End: 08-12-2024 Office outpatient visit 25 minutes Pascale Arana DISPENSING OPERATOR Work Phone: [facility] Comment on above: Acute non-recurrent maxillary sinusitis (Primary Dx); Cigarette nicotine dependence without complication; Class 1 obesity due to excess calories without serious comorbidity in adult, unspecified BMI; Environmental and seasonal allergies; Cutaneous abscess of abdominal wall Start: 08-12-2024 End: 08-12-2024 ambulatory PASCALE ARANA Not Available Start: 08-12-2024 End: 08-12-2024 Bamboo flowsheet Pascale Sumit DISPENSING OPERATOR Work Phone: [facility] Start: 08-12-2024 End: 08-14-2024 Bamboo flowsheet Pascale Sumit DISPENSING OPERATOR Work Phone: [facility] Start: 08-12-2024 End: 08-14-2024 External Result Encounter Pascale Sumit DISPENSING OPERATOR Work Phone: [facility] Unsolicited Start: 08-05-2024 End: 08-06-2024 Orders Only Angel Luis Groves DISPENSING OPERATOR Work Phone: [facility] Comment on above: B12 deficiency (Prim radha Dx); Iron deficiency anemia, unspecified iron deficiency anemia type Start: 08-01-2024 End: 08-01-2024 Clinisync Result Encounter Angel Luis Germain DISPENSING OPERATOR Work Phone: [facility] Unsolicited Start: 08-01-2024 End: 08-01-2024 Clinisync Result Encounter Angel Luis Nolanpatrick DISPENSING OPERATOR Work Phone: [facility] External [facility] Unsolicited Start: 07-31-2024 End: 07-31-2024 Office outpatient visit 15 minutes Angel Luis Mathurtrick DISPENSING OPERATOR Work Phone: [facility] Comment on above: Iron deficiency anem ia secondary to inadequate dietary iron intake (Primary Dx); Fibromyalgia; Psychophysiological insomnia; BMI 34.0-34.9,adult Start: 07-31-2024 End: 07-31-2024 ambulatory ANGEL LUIS GROVES Not Available Start: 07-31-2024 End: 07-31-2024 Bamboo flowsheet Angel Luis Groves DISPENSING OPERATOR Work Phone: [facility] Start: 07-31-2024 End: 07-31-2024 Bamboo flowsheet Angel Luis Groves DISPENSING OPERATOR Work Phone: [facility] Start: 07-25-2024 End: 07-29-2024 Refill Angel Luis Groves DISPENSING OPERATOR Work Phone: [facility] Comment on above: Psychophysiological insomnia Start: 06-25-2024 End: 06-25-2024 Refill Angel Luis Groves DISPENSING OPERATOR Work Phone: [facility] Comment on above: Psychophysiological insomnia Start: 06-11-2024 End: 06-11-2024 Orders Only Angel Luis Groves DISPENSING OPERATOR Work Phone: [facility] Comment on above: Fibromyalgia (Primar y Dx) Start: 06-03-2024 End: 06-03-2024 Refill Angel Luis Groves DISPENSING OPERATOR Work Phone: [facility] Comment on above: Fibromyalgia Start: 05-27-2024 End: 05-27-2024 Orders Only Angel Luis Groves DISPENSING OPERATOR Work Phone: [facility] Comment on above: Psychophysiological insomnia (Primary Dx) Start: 04-18-2024 End: 04-18-2024 Patient encounter procedure MD Tyson Collazo Work Phone: [facility] [address] Work Phone: Start: 04-18-2024 End: 04-18-2024 ambulatory Tyson Collazo [facility] Work Phone: Start: 04-10-2024 End: 04-10-2024 Office outpatient visit 15 minutes Angel Luis Groves DISPENSING OPERATOR Work Phone: [facility] Comment on above: Psychophysiological insomnia (Primary Dx); Fibromyalgia; Constipation, unspecified constipation type Start: 04-10-2024 End: 04-10-2024 ambulatory ANGEL LUIS GROVES Not Available Start: 04-10-2024 End: 04-10-2024 Bamboo flowsheet Angel Luis Groves DISPENSING OPERATOR Work Phone: [facility] Start: 04-10-2024 End: 04-10-2024 Bamboo flowsheet Angel Luis Groves DISPENSING OPERATOR Work Phone: [facility] Start: 03-18-2024 End: 03-18-2024 ambulatory Ron Palomares Facility:[facility] Start: 03-18-2024 End: 03-18-2024 Patient encounter procedure Ron Palomares [facility] Start: 03-13-2024 End: 03-13-2024 Refill Angel Luis Groves DISPENSING OPERATOR Work Phone: [facility] Comment on above: Fibromyalgia (Primar y Dx) Start: 03-12-2024 End: 03-12-2024 Office outpatient visit 15 minutes Angel Luis Groves DISPENSING OPERATOR Work Phone: [facility] Comment on above: Constipation, unspec ified constipation type (Primary Dx); Fibromyalgia Start: 03-12-2024 End: 03-12-2024 ambulatory ANGEL LUIS GROVES Not Available Start: 03-12-2024 End: 03-12-2024 Bamboo flowsheet Angel Luis Groves DISPENSING OPERATOR Work Phone: [facility] Start: 03-12-2024 End: 03-12-2024 Bamboo flowsheet Angel Luis Groves DISPENSING OPERATOR Work Phone: [facility] Start: 03-07-2024 ambulatory Mohcarmela Palomares Facilit y:Sheryl meza DH Start: 03-06-2024 End: 03-06-2024 ambulatory ANGEL LUIS GROVES Not Available Start: 02-28-2024 End: 02-28-2024 ambulatory ANGEL LUIS GROVES Not Available Start: 02-26-2024 Non-patient / Non-visit MD Roel Collazo Work Phone: [facility] Work Phone: Start: 01-22-2024 End: 01-22-2024 ambulatory SHAIKH ETELVINA Not Available Start: 01-08-2024 End: 01-08-2024 ambulatory SHAIKH ETELVINA Not Available Start: 11-13-2023 End: 11-13-2023 ambulatory SHAIKH ETELVINA Not Available Start: 08-25-2023 Refill Shaikh Etelvina WELLER Work Phone: [facility] Comment on above: Bipolar disorder wit h severe depression (CMS/HCC) Start: 07-19-2023 End: 07-19-2023 ambulatory Segun DUARTE Facility:CD:[id number] Start: 06-07-2023 End: 06-07-2023 ambulatory Segun DUARTE Facility:[facility] Start: 06-07-2023 End: 06-07-2023 Patient encounter procedure Segun DUARTE General Surgery Nill/Terri [place] Start: 06-05-2023 ambulatory Lynnd Mojesicali Facilit y:[facility] [place] Start: 05-18-2023 ambulatory Mohamad Mouchli Facilit y:STEPHANIE [place] Start: 04-07-2023 End: 04-07-2023 ambulatory [facility] Start: 02-08-2023 ambulatory [facility] Start: 05-31-2022 End: 06-01-[address] TAMIKO NETTLES Facility:H1 Start: 05-10-2022 End: 05-11-[address] ELLIOT ALSTON Facility:H1 Start: 04-19-2022 End: 04-20-2022 ambulatory MICHAEL DSOUZA Facility:H1 Start: 03-29-2022 End: 03-30-2022 ambulatory MICHAEL DSOUZA Facility:H1 Start: 03-10-2022 End: 03-10-2022 ambulatory TAWANA HOFF Facility:H1 Start: 03-07-2022 Encounter for prepro cedural cardiovascular examination [facility] Let[facility]ia [facility] Start: 03-07-2022 Encounter for prepro cedural laboratory examination [facility] Start: 03-03-2022 End: 03-04-2022 [facility] Start: 03-03-2022 End: 03-04-2022 Encounter for preprocedural laboratory examination [facility] Letitia [facility] Facility:H1 Start: 02-22-2022 End: 02-23-2022 ambulatory TAWANA Dong [facility] Facility:H1 Start: 02-09-2022 End: 02-10-2022 ambulatory TAWANA Dong [facility] Facility:H1 Start: 08-30-2021 End: 08-30-2021 ambulatory Kristin Quintana Other Neul Other Start: 08-30-2021 Office outpatient vi sit 15 minutes Kristin Quintana [facility] Start: 06-07-2021 End: 06-07-[address] GRISELDA SCOTT Facility:H1 Start: 11-14-2018 End: 11-15-2018 Patient encounter procedure DEFAULT PHYSICIAN Facility:[facility] Procedures Date Procedure Procedure Detail Performing Clinician Start: 09-09-2024 CT FOOT LT WO CON Gener ic External Data Provider Start: 09-05-2024 XR FOOT LT MIN 3V Gener ic External Data Provider Start: 08-12-2024 CHRONIC WOUND/ULCER (HTRX) Pascale Arana DISPENSING OPERATOR Work Phone: Start: 08-01-2024 ALL CBC WITH AUTO DIFF Angel Luis Groves DISPENSING OPERATOR Work Phone: Start: 07-19-2023 Colonoscopy Shaikh Sahil whitney MD Work Phone: Start: 02-09-2023 Esophagogastroduodenoscopy Segun NILL Start: 07-24-2019 Bypass of stomach Wagner burrell NILL Start: 07-24-2018 Transurethral cystoscopy Segun NILL Start: 07-24-2017 Transurethral cystoscopy Segun NILL Cholecystectomy Segun NILL Ligation of fallopian tube Lashaun davis NILL Repair of cystocele Segun NILL Plan of Treatment Date Care Activity Detail Author Start: 07-19-2033 Screening for malign ant neoplasm of colon [facility] Start: 10-23-2024 End: 10-23-2024 Patient encounter procedure 10/23/2024 5:30 PM EDT Procedure Visit [facility] [address] [place] [address] Pascale Arana, MARY JO [address] [place] [address] [facility] Start: 10-07-2024 Influenza vaccination Influenza Vacc ine (#1) [facility] Comment on above: Postponed from 03/24 (Patient Refused) Start: 10-04-2024 End: 08-06-2025 CBC W Auto Differential panel - Blood CBC and differential Lab Routine B12 deficiency Iron deficiency anemia, unspecified iron deficiency anemia type Expected: 10/04/2024 (Approximate), Expires: 08/06/2025 [facility] Work Phone: Comment on above: Expected: 10/04/2024 (Approximate), Expires: 08/06/2025 Start: 10-04-2024 End: 08-06-2025 Cobalamin (Vitamin B12) [Mass/volume] in Serum or Plasma Vitamin B12 Lab Routine B12 deficiency Iron deficiency anemia, unspecified iron deficiency anemia type Expected: 10/04/2024 (Approximate), Expires: 08/06/2025 [facility] Comment on above: Expected: 10/04/2024 (Approximate), Expires: 08/06/2025 Start: 10-04-2024 End: 08-06-2025 Ferritin [Mass/volume] in Serum or Plasma Ferritin Lab Routine B12 deficiency Iron deficiency anemia, unspecified iron deficiency anemia type Expected: 10/04/2024 (Approximate), Expires: 08/06/2025 [facility] Comment on above: Expected: 10/04/2024 (Approximate), Expires: 08/06/2025 Start: 10-04-2024 End: 08-06-2025 Iron + transferrin + TIBC Iron + transferrin + TIBC Lab Routine B12 deficiency Iron deficiency anemia, unspecified iron deficiency anemia type Expected: 10/04/2024 (Approximate), Expires: 08/06/2025 [facility] Comment on above: Expected: 10/04/2024 (Approximate), Expires: 08/06/2025 Start: 10-02-2024 End: 10-02-2024 [facility] Comment on above: Class 1 obesity due to excess calories without serious comorbidity in adult, unspecified BMI (Primary Dx); Iron deficiency anemia secondary to inadequate dietary iron intake; Cigarette nicotine dependence without complication; Encounter for screening mammogram for malignant neoplasm of breast; B12 deficiency Start: 10-02-2024 End: 10-02-2025 CBC W Auto Differential panel - Blood CBC and differential Lab Routine Iron deficiency anemia secondary to inadequate dietary iron intake B12 deficiency Expected: 10/02/2024 (Approximate), Expires: 10/02/2025 [facility] Comment on above: Expected: 10/02/2024 (Approximate), Expires: 10/02/2025 Start: 10-02-2024 End: 10-02-2025 Cobalamin (Vitamin B12) [Mass/volume] in Serum or Plasma Vitamin B12 Lab Routine B12 deficiency Expected: 10/02/2024 (Approximate), Expires: 10/02/2025 [facility] Comment on above: Expected: 10/02/2024 (Approximate), Expires: 10/02/2025 Start: 10-02-2024 End: 10-02-2025 Ferritin [Mass/volume] in Serum or Plasma Ferritin Lab Routine Iron deficiency anemia secondary to inadequate dietary iron intake Expected: 10/02/2024 (Approximate), Expires: 10/02/2025 [facility] Comment on above: Expected: 10/02/2024 (Approximate), Expires: 10/02/2025 Start: 10-02-2024 End: 10-02-2025 Iron + transferrin + TIBC Iron + transferrin + TIBC Lab Routine Iron deficiency anemia secondary to inadequate dietary iron intake Expected: 10/02/2024 (Approximate), Expires: 10/02/2025 [facility] Comment on above: Expected: 10/02/2024 (Approximate), Expires: 10/02/2025 Start: 10-02-2024 End: 12-02-2025 MG Breast - bilateral Screening Bilateral screening mammogram Imaging Routine Encounter for screening mammogram for malignant neoplasm of breast Expected: 10/02/2024 (Approximate), Expires: 12/02/2025 [facility] Work Phone: Comment on above: Expected: 10/02/2024 (Approximate), Expires: 12/02/2025 Start: 09-04-2024 End: 09-04-2024 Patient encounter procedure [facility] Comment on above: Arrived Start: 08-12-2024 End: 08-12-2024 Patient encounter procedure 08/12/2024 4:00 PM EST Office Visit [facility] [address] [place] [address] Pascale Arana NP [address] [place] [id number] Arrived [facility] Comment on above: Arrived Start: 08-12-2024 End: 08-12-2025 SUPERFICIAL WOUND (HTRX) SUPERFICIAL WOUND (HTRX) Lab Routine Cutaneous abscess of abdominal wall Expected: 08/12/2024 (Approximate), Expires: 08/12/2025 [facility] Work Phone: Comment on above: Expected: 08/12/2024 (Approximate), Expires: 08/12/2025 Start: 07-31-2024 End: 07-31-2024 Patient encounter procedure [facility] Comment on above: Arrived Start: 07-31-2024 End: 07-31-2025 Cobalamin (Vitamin B12) [Mass/volume] in Serum or Plasma Vitamin B12 Lab Routine Iron deficiency anemia secondary to inadequate dietary iron intake Expected: 07/31/2024 (Approximate), Expires: 07/31/2025 [facility] Comment on above: Expected: 07/31/2024 (Approximate), Expires: 07/31/2025 Start: 07-31-2024 End: 07-31-2025 Ferritin [Mass/volume] in Serum or Plasma Ferritin Lab Routine Iron deficiency anemia secondary to inadequate dietary iron intake Expected: 07/31/2024 (Approximate), Expires: 07/31/2025 [facility] Comment on above: Expected: 07/31/2024 (Approximate), Expires: 07/31/2025 Start: 07-31-2024 End: 07-31-2025 Iron + transferrin + TIBC Iron + transferrin + TIBC Lab Routine Iron deficiency anemia secondary to inadequate dietary iron intake Expected: 07/31/2024 (Approximate), Expires: 07/31/2025 [facility] Comment on above: Expected: 07/31/2024 (Approximate), Expires: 07/31/2025 Start: 07-10-2024 End: 07-10-2024 Patient encounter procedure 07/10/2024 4:30 PM EST Office Visit [facility] [address] [place] [address] Angel Luis Groves NP [address] [place] [address] [facility] Start: 06-05-2024 End: 06-05-2024 Patient encounter procedure 06/05/2024 5:30 PM EST Office Visit [facility] [address] [place] [address] Angel Luis Groves NP [address] [place] [address] [facility] Start: 04-10-2024 End: 04-10-2024 Patient encounter procedure [facility] Comment on above: Arrived Start: 03-24-2024 Influenza vaccination Influenza Vacc ine (#1) [facility] Start: 03-12-2024 End: 03-12-2024 Patient encounter procedure 03/12/2024 3:30 PM EDT Office Visit [facility] [address] [place] [address] Angel Luis Groves NP [address] [place] [address] Arrived [facility] Comment on above: Arrived Start: 11-13-2023 End: 11-13-2023 Patient encounter procedure 11/13/2023 4:45 PM EDT Office Visit [facility] [address] [place] [address] Shaikh Main MD [address] [place] [address] [facility] Start: 03-24-2023 Influenza vaccination Influenza Vacc ine (#1) [facility] Start: 2011 Screening for malign ant neoplasm of breast Mammogram [facility] Start: 2001 Screening for malign ant neoplasm of cervix [facility] Start: 1992 Screening for malign ant neoplasm of cervix Pap Smear [facility] Start: 1971 Screening for malign ant neoplasm of colon [facility] CBC W Auto Different ial panel - Blood CBC and differential Lab Routine Iron deficiency anemia secondary to inadequate dietary iron intake Ordered: 07/31/2024 [facility] Work Phone: Comment on above: Ordered: 07/31/2024 Sjogrens syndrome-A extractable nuclear Ab [Units/volume] in Serum [facility] Sjogrens syndrome-B extractable nuclear Ab [Units/volume] in Serum [facility] Immunizations Immunization Date Immunization Notes Care Provider Fa cility NEGATED: Highlighted row has not occurred!06-07-2023 influenza virus vaccine, unspecified formulation Segun DUARTE [facility] [place] Payers Date Payer Category Payer Self-pay 2009 Managed Care HMO (unspecified) [id number] 1971 Unknown [id number] [id number]7 1971 Unknown [id number] 2.16.84 0.1.736625.3.579.2.593 1971 Unknown [id number] 2.16.84 0.1.049119.3.579.2.593 1971 Unknown [id number] 2.16.84 0.1.783035.3.579.2.593 1971 Unknown [id number] 2.16.84 0.1.464796.3.579.2.593 1971 Unknown [id number] 2.16.84 0.1.890291.3.579.2.593 1971 Unknown [id number] 2.16.84 0.1.615932.3.579.2.593 1971 Unknown [id number] 2.16.84 0.1.845752.3.579.2.593 1971 Unknown [id number] 2.16.84 0.1.121263.3.579.2.593 1971 Unknown [id number] 2.16.84 0.1.685266.3.579.2.593 1971 Unknown [id number] 2.16.840.1.714406.3.579.2.727 1971 Unknown [id number] 2.16.840.1.976285.3.579.2.72 1971 Unknown [id number] 2.16.840.1.313066.3.579.2. 1971 Unknown [id number] 2.16.840.1.984840.3.579.2. 1971 Unknown [id number] 2.16.840.1.159771.3.579.2. 1971 Unknown [id number] 2.16.840.1.712634.3.579.2.1258 1971 Unknown [id number] 2.16.840.1.219123.3.579.2.1258 1971 Unknown [id number] 2.16.840.1.932971.3.579.2.1258 1971 Unknown [id number] 2.16.840.1.993756.3.579.2.1258 1971 Unknown [id number] 2.16.840.1.735590.3.579.2.1258 1971 Unknown [id number] 2.16.840.1.635539.3.579.2.1258 1971 Unknown [id number] 2.16.840.1.050112.3.579.2.1258 1971 Unknown [id number] 2.16.840.1.231309.3.579.2.1258 1971 Unknown [id number] 2.16.840.1.843130.3.579.2.1258 1971 Unknown [id number] 2.16.840.1.734971.3.579.2.1259 1959 Private Health Insurance [id number] 2.16.840.1.851871.19 Unknown Unknown [id number] 2.16.840.1.614972.3.579.2.531 Social History Date Type Detail Facility Unknown if ever smoked Neul Other Start: 08-07-2023 End: 04-10-2024 Sex Assigned At [facility] Start: 06-07-2023 End: 03-18-2024 Tobacco smoking status Heavy tobacco smoker (finding) [facility] Tobacco smoking status Former sm okeless tobacco [...] tobacco non-user [facility] Start: 08-14-2023 End: 10-02-2024 Alcohol intake Lifetime non-drinker (finding) [facility] [...] Start: 1970 Sex Assigned At Female F [facility] History of tobacco use Passive smoker [facility] Goals Date Patient Goal Desired Activity /State Personal health goal Functional Status Date Assessment Result Facility 03-18-2024 Functional Status N/A [facility] 06-07-2023 Functional Status N/A [facility] chrissytristin [place] Clinical Notes 08-30-2021 to 10-02-2024 Pascale Arana NP - 10/02/2024 5:02 PM Amaury Arana NP - 10/02/2024 5:00 PM Amaury Arana NP - 10/02/2024 7:49 AM Amaury Arana NP - 10/02/2024 7:49 AM EDTPatient Instructions Note Date & Type Note Facility 10-02-2024 History of Present illness Narrative Associated Problem(s): GERD (gastroesophageal reflux disease) Recommendations: freq small meals, nothing to eat or drink at least 2 hours prior to bed, limit caffeine, alcohol, as well as spicy foods Meds to limit or avoid if possible: NSAIDS Elevate HOB if possible Current med: lansoprazole Images from the original note were not included. Talia Rutherford is a 54 y.o. female presents with chief complaint of Weight Check HPI: Adipex check: completed month #2 Total lost 6 pounds, gained 1 pound from last month No side effects of med Feels like she is eating less GERD She reports no abdominal pain, no chest pain, no coughing, no early satiety, no heartburn, no nausea, no sore throat or no wheezing. This is a chronic problem. The current episode started more than 1 year ago. The problem occurs occasionally. The problem has been unchanged. Risk factors include obesity and smoking/tobacco exposure. She has tried a PPI for the symptoms. The treatment provided significant relief. Past procedures include an EGD. SUBJECTIVE: MEDICATIONS: Current Outpatient Medications Medication Instructions albuterol HFA 90 mcg/act inhaler 2 puffs, Inhalation, Every 4 hours PRN citalopram (CELEXA) 40 mg, Oral, Every morning DULoxetine (Cymbalta) [address] capsule TAKE 1 CAPSULE BY MOUTH ONCE A DAY *DO NOT CRUSH OR CHEW* DULoxetine (CYMBALTA) 60 mg, Oral, Daily fexofenadine (LAYLA ALLERGY) 180 mg, Oral, Daily fluticasone (Flonase) 50 MCG/ACT nasal spray 2 sprays, Each Nostril, Daily, Shake gently. Before first use, prime pump. After use, clean tip and replace cap. gabapentin (NEURONTIN) 300 mg, Oral, 3 times daily lansoprazole (PREVACID) 30 mg, Oral, Daily before breakfast meloxicam (MOBIC) 15 mg, Daily phentermine (ADIPEX-P) 37.5 mg, Oral, Daily before breakfast tolterodine LA (DETROL LA) 4 mg, Oral, Daily zolpidem (AMBIEN) 10 mg, Oral, Nightly PRN ALLERGIES: Allergies Allergen Reactions Penicillin G Unknown Penicillins REVIEW OF SYMPTOMS: Review of Systems Constitutional: Negative for appetite change, chills and fever. HENT: Negative for congestion, ear pain and sore throat. Eyes: Negative for pain, discharge, redness and visual disturbance. Respiratory: Negative for cough, shortness of breath and wheezing. Cardiovascular: Negative for chest pain, palpitations and leg swelling. Gastrointestinal: Negative for abdominal pain, blood in stool, constipation, diarrhea, heartburn, nausea and vomiting. Genitourinary: Negative for difficulty urinating, dysuria and frequency. Musculoskeletal: Negative for arthralgias, back pain, joint swelling and myalgias. Skin: Negative for rash and wound. Neurological: Negative for dizziness, tremors, seizures, syncope and headaches. Psychiatric/Behavioral: Negative for behavioral problems, self-injury and [...] in her maternal grandmother. OBJECTIVE: Visit Vitals Pulse 68 Temp 97.8 F (Temporal) Resp 18 Ht 5' 5 Wt 201 lb 6.4 oz SpO2 97% BMI 33.51 kg/m Smoking Status Every Day BSA 2.05 m Physical Exam Vitals and nursing note reviewed. Constitutional: General: She is not in acute distress. Appearance: Normal appearance. HENT: Head: Normocephalic and atraumatic. Right Ear: External ear normal. Left Ear: External ear normal. Nose: Nose normal. Mouth/Throat: Mouth: Mucous membranes are moist. Eyes: Extraocular Movements: Extraocular movements intact. Conjunctiva/sclera: Conjunctivae normal. Cardiovascular: Rate and Rhythm: Normal rate and regular rhythm. Pulses: Normal pulses. Heart sounds: Normal heart sounds. Pulmonary: Effort: Pulmonary effort is normal. Breath sounds: Normal breath sounds. Abdominal: General: Bowel sounds are normal. There is no distension. Palpations: Abdomen is soft. There is no mass. Tenderness: There is no abdominal tenderness. Musculoskeletal: General: Normal range of motion. Cervical back: Normal range of motion and neck supple. Skin: General: Skin is warm and dry. Capillary Refill: Capillary refill takes 2 to 3 seconds. Findings: No rash. Neurological: General: No focal deficit present. Mental Status: She is alert and oriented to person, place, and time. Psychiatric: Mood and Affect: Mood normal. Behavior: Behavior normal. Thought Content: Thought content normal. Judgment: Judgment normal. ASSESSMENT AND PLAN: Follow up in about 4 weeks (around 10/30/2024). Problem List Items Addressed This Visit Fibromyalgia Relevant Medications gabapentin (Neurontin) 300 MG capsule GERD (gastroesophageal reflux disease) - Primary Recommendations: freq small meals, nothing to eat or drink at least 2 hours prior to bed, limit caffeine, alcohol, as well as spicy foods Meds to limit or avoid if possible: NSAIDS Elevate HOB if possible Current med: lansoprazole Relevant Medications lansoprazole (Prevacid) [address] capsule B12 deficiency Relevant Orders CBC and differential Vitamin B12 Iron deficiency anemia Is prescribed ferrous sulfate, has not been taking this May need IV infusion she has done this in the past Recheck labs Relevant Orders CBC and differential Iron + transferrin + TIBC Ferritin Nicotine dependence The patient has been advised of the risks of continued smoking: stroke, NM, all forms of cancer, lung disease, and . Options for quitting smoking include: cold turkey, hypnosis, acupuncture, nicotine replacement meds (gum, lozenges, and patches), Buproprion, and Varenicline. At this time pt is encouraged to evaluate their goals for wanting to quit smoking, and reach out to provider when ready to start this process Overactive bladder Class 1 obesity due to excess calories without serious comorbidity in adult Discussed with patient their BMI (actual, verses recommended). We have also discussed lifestyle modifications: attempts to perform physical activity as chronic conditions allow, also to monitor dietary intake: increasing protein/fruits/veggies and lowering carb intake (unless contraindicated). Limit sodas, juices, and sugary drinks. Pt meets qualifications of OAC 4731-05-27 for weight loss. BMI>30 or >27 with comorbid conditions. Notify office with any symptoms of chest pain, dyspnea, heart palpitations, or any anxiety symptoms. F/U in 4 weeks to document weight loss. Increase physical activity as tolerated, and lower caloric intake to 1600 calories daily if no contraindications OARRS reviewed Started on adipex in 09/17: starting weight 200 lbs Environmental and seasonal allergies Relevant Medications fluticasone (Flonase) 50 MCG/ACT nasal spray Encounter for screening mammogram for malignant neoplasm of breast Relevant Orders Bilateral screening mammogram Overactive bladder due to prolapse of female genital organ Relevant Medications tolterodine LA (Detrol LA) 4 MG 24 hr capsule BMI 34.0-34.9,adult Relevant Medications phentermine (Adipex-P) 37.5 MG tablet Other Visit Diagnoses Seasonal allergies Relevant Medications fexofenadine (Layla Allergy) 180 MG tablet Associated Problem(s): Nicotine dependence The patient has been advised of the risks of continued smoking: stroke, NM, all forms of cancer, lung disease, and . Options for quitting smoking include: cold turkey, hypnosis, acupuncture, nicotine replacement meds (gum, lozenges, and patches), Buproprion, and Varenicline. At this time pt is encouraged to evaluate their goals for wanting to quit smoking, and reach out to provider when ready to start this process Associated Problem(s): Iron deficiency anemia Is prescribed ferrous sulfate, has not been taking this May need IV infusion she has done this in the past Recheck labs Associated Problem(s): Class 1 obesity due to excess calories without serious comorbidity in adult Discussed with patient their BMI (actual, verses recommended). We have also discussed lifestyle modifications: attempts to perform physical activity as chronic conditions allow, also to monitor dietary intake: increasing protein/fruits/veggies and lowering carb intake (unless contraindicated). Limit sodas, juices, and sugary drinks. Pt meets qualifications of OAC 4731-05-27 for weight loss. BMI>30 or >27 with comorbid conditions. Notify office with any symptoms of chest pain, dyspnea, heart palpitations, or any anxiety symptoms. F/U in 4 weeks to document weight loss. Increase physical activity as tolerated, and lower caloric intake to 1600 calories daily if no contraindications OARRS reviewed Started on adipex in 09/17: starting weight 200 lbs documented in this encounter [facility] 10-02-2024 Instructions Pascale Arana NP - 10/02/2024 5:00 PM EDT Check labs Mammogram: will send to [facility] Schedule PAP documented in this encounter [facility] 09-04-2024 Instructions Angel Luis Groves NP - 09/04/2024 5:00 PM EST Keep up the good work!!! documented in this encounter [facility] 08-14-2024 Telephone encounter Note Patient said her dose was increased and now she is out of this medication. Can you please refill. ANAYELI [facility] 08-14-2024 Miscellaneous Notes Patient said her dose was increased and now she is out of this medication. Can you please refill. ANAYELI documented in this encounter [facility] 08-12-2024 History of Present illness Narrative Associated [...] of the risks of continued smoking: stroke, NM, all forms of cancer, lung disease, and [...] of the risks of continued smoking: stroke, NM, all forms of cancer, lung disease, and [...] SUPERFICIAL WOUND (HTRX) documented in this encounter [facility] 08-12-2024 Instructions Pascale Arana NP - 08/12/2024 4:00 PM EST Z pack, finish this Fluids, rest Cont layla and we will add flonase nasal spray Warm compress to affected area, will treat based on culture report documented in this encounter [facility] 07-31-2024 History of Present illness Narrative Associated [...] 37.5 MG tablet documented in this encounter [facility] 07-31-2024 Instructions Angel Luis Groves NP - 07/31/2024 3:00 PM EST Notify office with any symptoms of chest pain, dyspnea, heart palpitations, or any anxiety symptoms. F/U in 4 weeks to document weight loss. Increase physical activity as tolerated, and lower caloric intake to 1600 calories daily if no contraindications. documented in this encounter [facility] 07-24-2024 History of Present illness Narrative Images from the original note were not included. Subjective Patient ID: Talia Rutherford is a 54 y.o. female who presents for Weight Check. HPI Started Adipex in July Starting weight: 206 Weight today: 200 Total loss: 6 pounds 5% is 10 pounds Goal weight: 150 lbs Diet: Believes diet has improved. Has been eating salads at work. Eating smaller portions. Has been making a conscious effort to walk more. Water: 32 ounces. Will increase for goal to 48-64 ounces. Exercise: Has been making a conscious effort to walk more. Sleep: 8 hours per night. Feels well rested. Denies any adverse effects from medication. Will continue Adipex again into month two. Pt meets qualifications of [facility] 4731-05-27 for weight loss. BMI>30 or >27 with comorbid conditions. Blood pressure WNL. Notify office with any symptoms of chest pain, dyspnea, heart palpitations, or any anxiety symptoms. F/U in 4 weeks to document weight loss. Increase physical activity as tolerated, and lower caloric intake to 1600 calories daily if no contraindications. Review of Systems Constitutional: Negative for activity [...] Assessment/Plan Problem List Items Addressed This Visit Bipolar disorder with severe depression (CMS/HCC) Relevant Medications citalopram (CeleXA) 40 MG tablet Fibromyalgia Relevant Medications gabapentin (Neurontin) 300 MG capsule Psychophysiological insomnia BMI 33.0-33.9,adult - Primary Started Adipex in July Starting weight: 206 Weight today: 200 Total loss: 6 pounds 5% is 10 pounds Goal weight: 150 lbs Diet: Believes diet has improved. Has been eating salads at work. Eating smaller portions. Has been making a conscious effort to walk more. Water: 32 ounces. Will increase for goal to 48-64 ounces. Exercise: Has been making a conscious effort to walk more. Sleep: 8 hours per night. Feels well rested. Denies any adverse effects from medication. Will continue Adipex again into month two. Pt meets qualifications of [facility] 4731-05-27 for weight loss. BMI>30 or >27 with comorbid conditions. Blood pressure WNL. Notify office with any symptoms of chest pain, dyspnea, heart palpitations, or any anxiety symptoms. F/U in 4 weeks to document weight loss. Increase physical activity as tolerated, and lower caloric intake to 1600 calories daily if no contraindications. Relevant Medications phentermine (Adipex-P) 37.5 MG tablet Other Visit Diagnoses Gastro-esophageal reflux disease without esophagitis Relevant Medications lansoprazole (Prevacid) [address] capsule Esophageal reflux Relevant Medications lansoprazole (Prevacid) [address] capsule Overactive bladder due to prolapse of female genital organ Relevant Medications tolterodine LA (Detrol LA) 4 MG 24 hr capsule Associated Problem(s): BMI 33.0-33.9,adult Started Adipex in July Starting weight: 206 Weight today: 200 Total loss: 6 pounds 5% is 10 pounds Goal weight: 150 lbs Diet: Believes diet has improved. Has been eating salads at work. Eating smaller portions. Has been making a conscious effort to walk more. Water: 32 ounces. Will increase for goal to 48-64 ounces. Exercise: Has been making a conscious effort to walk more. Sleep: 8 hours per night. Feels well rested. Denies any adverse effects from medication. Will continue Adipex again into month two. Pt meets qualifications of [facility] 4731-05-27 for weight loss. BMI>30 or >27 with comorbid conditions. Blood pressure WNL. Notify office with any symptoms of chest pain, dyspnea, heart palpitations, or any anxiety symptoms. F/U in 4 weeks to document weight loss. Increase physical activity as tolerated, and lower caloric intake to 1600 calories daily if no contraindications. documented in this encounter [facility] 06-03-2024 Telephone encounter Note Pt takes the 60mg in morning and 30 mg in the afternoon, so both. [facility] 06-03-2024 Miscellaneous Notes Pt takes the 60mg in morning and 30 mg in the afternoon, so both. Patient is asking for a 90 day supply. Patient said 60 mg were denied. documented in this encounter [facility] 06-03-2024 Telephone encounter Note Patient is asking for a 90 day supply. Patient said 60 mg were denied. [facility] 04-10-2024 History of Present illness Narrative Associated [...] has since resolved. documented in this encounter [facility] 03-13-2024 History of Present illness Narrative Associated [...] ABDOMINAL PAIN. PT SCHEDULED TO SEE GI MUNSTER ON 03/18 AT 1500. ). HPI IS here today for one week follow-up for constipation. Prescrivbed lacutlose at last visit-did not pick up attendant. Went on vacation to in [facility] in [place] for the weekend and had X3 BM's. Denies blood in stool. States she has been stressed recentlty and feels being away heloped her relax and she was finally able to pass BM. Sees GI in [place] on Sunday 03/18 @ 3pm. Still has [...] GI next week. documented in this encounter [facility] 03-12-2024 Instructions Angel Luis Groves NP - 03/12/2024 3:30 PM EDT Referral sent to Rheumatology- Dr. Muller in [place], [place]- they will call you! Have mammogram completed. Call if you need anything! documented in this encounter [facility] 06-07-2023 Note Chief Complaint consultation for colonoscopy HPI Staff 53 year old female presents on consultation from Dr. Bustamante for colonoscopy. Patient hospitalized in January with HGB of 4.8. At that time, patient was experiencing profound fatigue, dizziness and SOB. EGD was completed and normal. Patient left AMA prior to colonoscopy being completed. States symptoms have resolved. H/H completed 04/24- .3.8. She is taking Ferrous Sulfate 325mg daily. [...] fibromyalgia, referred for severe anemia, admitted to [facility] in January with hb of [...] mg= (more content not included)... [facility] Comment on above: Result Comment: Elec tronically Signed By: AMIE WELLER, Segun Denis\.meena\Date and Time Signed: 06/07/23 17:17 EST 06-07-2023 Evaluation + Plan note Diagnostic Tests PendingIron Level 06/07/23Ferritin 06/07/23Vitamin B12 Level 06/07/23 [facility] 04-07-2023 Note Cardiology Clinic No te Subjective [...] -Resolved, likely exacerbated (more content not included)... [facility] 04-07-2023 Note Patient here for 2 m [...] All other systems reviewed and are negative. [facility] 02-08-2023 Note Cardiovascular Medic [facility] SUBJECTIVE Chief Complaint Patient presents [...] about 6 weeks (around 03/22/2023). Carol Berg APRN-[facility] Cardiovascular Medicine [facility] 05-31-2022 Note PROCEDURE: XR FOOT L T [...] authenticated by: TAMIKO NETTLES Date: 2022-05-31 20:30 [facility] 05-11-2022 Note PROCEDURE: XR FOOT L [...] mild degenerative changes. Electronically authenticated by: ELLIOT ALSTON Date: 2022-05-11 16:14 [facility] 04-19-2022 Note PROCEDURE: XR FOOT L [...] authenticated by: TAMIKO NETTLES Date: 2022-04-19 18:16 [facility] 03-30-2022 Note PROCEDURE: XR FOOT L [...] authenticated by: TAMIKO NETTLES Date: 2022-03-30 06:41 [facility] 03-11-2022 Note PROCEDURE: XR FOOT L [...] tarsal metatarsal joints. Electronically authenticated by: ELLIOT ALSTON Date: 2022-03-11 08:26 [facility] 03-11-2022 Note PROCEDURE: XR FOOT L T 2V HISTORY: Pain COMPARISON: XR foot left 02/09/2022 FINDINGS: BONES:Multiple intraoperative images demonstrate mechanical fusion of the second and third tarsal-metatarsal joints. SOFT TISSUES:Expected intraoperative findings. EFFUSION:None visible. OTHER: Negative. IMPRESSION: 1. Mechanical fusion of second and third tarsal-metatarsal joints. Electronically authenticated by: ELLIOT ALSTON Date: 2022-03-11 07:55 [facility] 02-10-2022 Note PROCEDURE: XR FOOT L T MIN 3 VIEWS COMPARISON: 12/15/2020 HISTORY: Pain FINDINGS: BONES:No acute fracture or dislocation. Stable moderate degenerative changes most significant at the tarsometatarsal joints. Moderate plantar enthesopathic spurring of the calcaneus SOFT TISSUES:Negative. No visible soft tissue swelling. EFFUSION:None visible. OTHER: Negative. IMPRESSION: Stable moderate degenerative changes Electronically authenticated by: TAMIKO NETTLES Date: 2022-02-10 07:37 [facility] 08-30-2021 Evaluation note Encounter Date Diagnosis [...] Patient care instructions given in writting by [facility] Care At Home document Neul Other Evaluation note* Diagnosis Bipolar disorder with severe depression (CMS/HCC) [facility] noteNo assessment information availableC[facility] Work Phone: Evaluation note* Diagnosis [...] in full remission, most recent episode depressed ([facility]) Psychophysiological insomnia Persistent disorder of [...] current episode depressed, severe, without psychotic features ([facility]/HCC) Psychophysiological insomnia Persistent disorder of initiating or [...] gastric bypass Bipolar disorder with severe depression ([facility]) Encounter for screening mammogram for breast cancer- Primary Screening for diabetes mellitus Seizure-like activity ([facility]) Fluid level behind tympanic membrane [...] seasonal allergies Cutaneous abscess of abdominal wall BMI 33.0-33.9,adult- Primary Bipolar disorder with severe depression (CMS/HCC) Fibromyalgia Unspecified myalgia and myositis Gastro-esophageal reflux disease without esophagitis Esophageal reflux BMI 34.0-34.9,adult Psychophysiological insomnia Persistent disorder of initiating or maintaining sleep Overactive bladder due to prolapse of female genital organ documented [facility]* [...] seasonal allergies Cutaneous abscess of abdominal wall BMI 33.0-33.9,adult- Primary Bipolar disorder with severe depression (CMS/HCC) Fibromyalgia Unspecified myalgia and myositis Gastro-esophageal reflux disease without esophagitis Esophageal reflux BMI 34.0-34.9,adult Psychophysiological insomnia Persistent disorder of initiating or maintaining sleep Overactive bladder due to prolapse of female genital organ Environmental and seasonal allergies documented in this [facility]* [...] gastric bypass Bipolar disorder with severe depression ([facility]) Encounter for screening mammogram for breast cancer- Primary Screening for diabetes mellitus Seizure-like activity ([facility]) Fluid level behind tympanic membrane [...] seasonal allergies Cutaneous abscess of abdominal wall BMI 33.0-33.9,adult- Primary Bipolar disorder with severe depression ([facility]) Fibromyalgia Unspecified myalgia and myositis Gastro-esophageal reflux disease without esophagitis Esophageal reflux BMI 34.0-34.9,adult Psychophysiological insomnia Persistent disorder of initiating or maintaining sleep Overactive bladder due to prolapse of female genital organ Gastroesophageal reflux disease, unspecified whether esophagitis present- Primary Class 1 obesity due to excess calories without serious comorbidity in adult, unspecified BMI Iron deficiency anemia secondary to inadequate dietary iron intake Cigarette nicotine dependence without complication Encounter for screening mammogram for malignant neoplasm of breast B12 deficiency Overactive bladder Hypertonicity of bladder Seasonal allergies Allergic rhinitis, cause unspecified Environmental and seasonal allergies Fibromyalgia Unspecified myalgia and myositis Overactive bladder due to prolapse of female genital organ BMI 34.0-34.9,adult documented in this [facility] Narrative - Reported* Type Description Date Medical History anxiety Medical History GERD Neul Other Hospital course Narrative No data available for this section General [facility] Discharge instructions No data available for this section General Surgery [facility] note No data available for this section [facility] Reason for referral (narrative)* Consultation (Routine) - Pending Review Specialty Diagnoses / Procedures Referred By Contac t Referred To Contact Rheumatology Diagnoses Fibromyalgia Procedures DC OFFICE/OUTPATIENT NEW HIGH MDM 60 MINUTES Angel Luis Groves NP [address] [place] [address] Tyson Collazo MD [address] [place] [address] Referral ID Status Reason Start Date Expiration Date Visits Requested Visits Authorized [id number] Pending Review Specialty Services Required 03/13/2024 09/09/2024 [...] and content) DATE CREATED AUTHOR 11/16/[address] [facility] DATE CREATED AUTHOR AUTHOR'S ORGANIZ ATION 06/05/2022 [facility] DATE CREATED AUTHOR AUTHOR'S ORGANIZ ATION 04/09/2023 [facility] DATE CREATED AUTHOR AUTHOR'S ORGANIZ ATION 03/20/2024 [facility] DATE CREATED AUTHOR AUTHOR'S ORGANIZ ATION 04/29/2024 [facility] DATE CREATED AUTHOR AUTHOR'S ORGANIZ ATION 09/06/2024 [facility] REASON FOR VISIT (unrecogniz ed section and content) Reason Comments Med Refill Reason Onset Date Comments Med Refill 06/03/2024 Reason Onset Date Comments Med Refill 06/25/2024 Reason Comments Follow-up CONSTIPATION, PT HAS HAD THREE BM'S SINCE LAST VISIT. PT IS STILL HAVING ABDOMINAL PAIN. PT SCHEDULED TO SEE GUDELIA BARAHONA ON 03/18 AT 1500. Reason Comments Follow-up Reason Onset Date Comments Med Refill 07/25/2024 Reason Comments Follow-up 3 mHot flashes Reason Comments Sore Throat Reason Onset Date Comments Med Refill 08/14/2024 Reason Comments Weight Check Reason Onset Date Comments Med Refill 09/06/2024 Patient Care team informatio n (unrecognized section and content) Channel Manager Relationship Specialty Start Date End Date Shaikh Main MD PCP - General Internal Medicine 04/20/23 Team Status: Active Member Role Status Dates Conrad Ahn DO Attending Provider Active Sta rt: February 26, 2024 Team Status: Inactive Member Role Status Dates Tyson Collazo MD Attending Provider Active St art: April 18, 2024 End: April 18, 2024 Channel Manager Relationship Specialty Start Date End Date Molina De Anda MD [address] [place] [address] PCP - General Family Medicine 02/21/24 Angel Luis Groves NP [address] [place] [address] Nurse Practitioner Family Medicine 02/21/24 Channel Manager Relationship Specialty Start Date End Date Molina De Anda MD [address] [place] [address] PCP - General Family Medicine 02/21/24 Angel Luis Groves NP [address] [place] [address] Nurse Practitioner Family Medicine 02/21/24 Channel Manager Relationship Specialty Start Date End Date Molina De Anda MD [address] [place] [address] PCP - General Family Medicine 02/21/24 Angel Luis Groves NP [address] [place] [address] Nurse Practitioner Family Medicine 02/21/24 Channel Manager Relationship Specialty Start Date End Date Molina De Anda MD [address] [place] [address] PCP - General Family Medicine 02/21/24 Angel Luis Groves NP [address] [place] [address] Nurse Practitioner Family Medicine 02/21/24 Channel Manager Relationship Specialty Start Date End Date Molina De Anda MD [address] [place] [id number] PCP - General Family Medicine 02/21/24 Angel Luis Groves NP [address] [place] [address] Nurse Practitioner Family Medicine 02/21/24 Channel Manager Relationship Specialty Start Date End Date Molina De Anda MD [address] [place] [id number] PCP - General Family Medicine 02/21/24 Angel Luis Groves NP [address] [place] [address] Nurse Practitioner Family Medicine 02/21/24 Channel Manager Relationship Specialty Start Date End Date Molina De Anda MD [address] [place] [address] PCP - General Family Medicine 02/21/24 Angel Luis Groves NP [address] [place] [address] Nurse Practitioner Family Medicine 02/21/24 Channel Manager Relationship Specialty Start Date End Date Molina De Anda MD [address] [place] [address] PCP - General Family Medicine 02/21/24 Angel Luis Groves NP [address] [place] [address] Nurse Practitioner Family Medicine 02/21/24 Channel Manager Relationship Specialty Start Date End Date Molina De Anda MD [address] [place] [address] PCP - General Family Medicine 02/21/24 Angel Luis Groves NP [address] [place] [address] Nurse Practitioner Family Medicine 02/21/24 Channel Manager Relationship Specialty Start Date End Date Molina De Anda MD [address] [place] [address] PCP - General Family Medicine 02/21/24 Angel Luis Groves NP [address] [place] [address] Nurse Practitioner Family Medicine 02/21/24 Channel Manager Relationship Specialty Start Date End Date Molina De Anda MD [address] [place] [address] PCP - General Family Medicine 02/21/24 Angel Luis Groves NP [address] [place] [address] Nurse Practitioner Family Medicine 02/21/24 Channel Manager Relationship Specialty Start Date End Date Molina De Anda MD [address] [place] [address] PCP - General Family Medicine 02/21/24 Angel Luis Groves NP [address] [place] [address] Nurse Practitioner Family Medicine 02/21/24 Channel Manager Relationship Specialty Start Date End Date Molina De Anda MD [address] [place] [address] PCP - General Family Medicine 02/21/24 Angel Luis Groves NP [address] [place] [address] Nurse Practitioner Family Medicine 02/21/24 Channel Manager Relationship Specialty Start Date End Date Molina De Anda MD [address] [place] [address] PCP - General Family Medicine 02/21/24 Angel Luis Groves NP [address] [place] [address] Nurse Practitioner Family Medicine 02/21/24 Channel Manager Relationship Specialty Start Date End Date Molina De Anda MD [address] [place] [address] PCP - General Family Medicine 02/21/24 Angel Luis Groves NP [address] [place] [address] Nurse Practitioner Family Medicine 02/21/24 Channel Manager Relationship Specialty Start Date End Date Molina De Anda MD [address] [place] [address] PCP - General Family Medicine 02/21/24 Angel Luis Groves NP [address] [place] [address] Nurse Practitioner Family Medicine 02/21/24 Channel Manager Relationship Specialty Start Date End Date Molina De Anda MD [address] [place] [address] PCP - General Family Medicine 02/21/24 Angel Luis Groves NP [address] [place] [address] Nurse Practitioner Family Medicine 02/21/24 Channel Manager Relationship Specialty Start Date End Date Molina De Anda MD [address] [place] [address] PCP - General Family Medicine 02/21/24 Angel Luis Groves NP [address] [place] [address] Nurse Practitioner Family Medicine 02/21/24 Channel Manager Relationship Specialty Start Date End Date Molina De Anda MD [address] [place] [address] PCP - General Family Medicine 02/21/24 Angel Luis Groves NP [address] [place] [address] Nurse Practitioner Family Medicine 02/21/24 Channel Manager Relationship Specialty Start Date End Date Molina De Anda MD [address] [place] [address] PCP - General Family Medicine 02/21/24 Angel Luis Groves NP [address] [place] [address] Nurse Practitioner Family Medicine 02/21/24 Channel Manager Relationship Specialty Start Date End Date Molina De Anda MD [address] [place] [address] PCP - General Family Medicine 02/21/24 Angel Luis Groves NP [address] [place] [address] Nurse Practitioner Family Medicine 02/21/24 Channel Manager Relationship Specialty Start Date End Date Molina De Anda MD [address] [place] [address] PCP - General Family Medicine 02/21/24 Angel Luis Groves NP [address] [place] [address] Nurse Practitioner Family Medicine 02/21/24 Goals (unrecognized [...] BE BASED ON THE PRIMARY CLINICAL RECORDS. [employer] provides no warranty or guarantee of the accuracy or completeness of information in this document.
[2024-10-03 08:54] LABS: Basophils Percent Auto 0.8 % (0.2-2.0); Eosinophils Absolute Auto 0.2 10^3/uL (0.0-0.7); Eosinophils Percent Auto 3.9 % (0.9-7.0); Hematocrit 32.9 % (36.0-48.0); Hemoglobin 10.6 g/dL (12.0-16.0); Lymphocytes Absolute Auto 1.6 10^3/uL (1.2-3.8); Lymphocytes Percent Auto 31.7 % (20.5-60.0); Mean Corpuscular HGB Conc 32.2 g/dL (29.9-35.2); Mean Corpuscular Hemoglobin 29.5 pg (26.7-34.0); Mean Corpuscular Volume 91.6 fL (81.0-99.0); Mean Platelet Volume 10.5 fL (9.5-13.5); Monocytes Absolute Auto 0.4 10^3/uL (0.3-0.8); Monocytes Percent Auto 7.2 % (1.7-12.0); Neutrophils Absolute Auto 2.8 10^3/uL (1.4-6.5); Neutrophils Percent Auto 56.4 % (43.0-75.0); Platelet Count 199 10^3/uL (150-450); Red Blood Count 3.59 10^6/uL (4.20-5.40); Red Cell Distribution Width 14.2 % (11.0-15.0); White Blood Count 4.9 10^3/uL (4.0-11.0)
[2024-10-03 13:12] LABS: Percent Iron Saturation 9.1 %
[2024-10-04 04:07] LABS: Vitamin B12 >2000 pg/mL (232-1245)
[2024-10-04 08:11] LABS: Transferrin 306 mg/dL (192-364)
== END 2024-10-03 08:25 | disposition home or self-care (01) ==
LOC: LAB 08:26
PROVIDERS: PCP Nurse Practitioner; Visit Provider Nurse Practitioner
DX: D50.8 Other iron deficiency anemias (principal); E53.8 Deficiency of other specified B group vitamins
CPT/HCPCS: 36415; 82607; 82728; 83540; 83550; 84466; 85025

== ENCOUNTER 2024-10-23 08:01 | Outpatient (OUT) | payer OTHER, SELFPAY ==
--- NOTE | 2024-10-23 08:05 | MM_ITS ---
Patient Name: KALYN RUTHERFORD MR#: [id number] : 1970 Exam Date: 10/23/2024 Ordering Doctor: JASON Arana CNP RADIOLOGY REPORT PROCEDURE: MM TOMOSYNTHESIS SCREENING BI COMPARISON: None. INDICATIONS: Screening Calculator Name NCI Breast Cancer Risk Assessment Tool 5 Year Breast Cancer Risk 0.80% Lifetime Breast Cancer Risk 6.20% Personal Breast Cancer No Personal Ovarian Cancer No Treatments None Family Cancers Grandmother-maternal with breast cancer at age ~50; Aunt-maternal with breast cancer at age ~50. LOCATION: [facility] BREAST COMPOSITION: There are scattered areas of fibroglandular density. FINDINGS: DIAGNOSTIC CATEGORY 1--NEGATIVE. RIGHT BREAST: No significant suspicious finding. LEFT BREAST: No significant suspicious finding. RECOMMENDATIONS: ROUTINE MAMMOGRAM AND CLINICAL EVALUATION IN 12 MONTHS. PLEASE NOTE: A NORMAL MAMMOGRAM DOES NOT EXCLUDE THE POSSIBILITY OF BREAST CANCER. A CLINICALLY SUSPICIOUS PALPABLE LUMP SHOULD BE BIOPSIED. Dictated by: Merlin Massey DO on 10/23/2024 at 15:43 Approved by: Merlin Massey DO on 10/23/2024 at 15:55
--- OUTSIDE RECORDS SUMMARY | 2024-10-23 08:15 | XMS_ITS | CCD ---
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 Name Role Phone PHYSICIAN, DEFAULT Admitting Unavailable PHYSICIAN, DEFAULT Attending Unavailable TYLER, GRISELDA Primary Care Unavailable Kristin Quintana Unavailable MICHAEL DSOUZA Admitting Unavailable MEET, MICHAEL Attending Unavailable TYLER, DR VILLALOBOS Primary Care Unavailable ROMMEL, DR TAMIKO Dickens Consulting Unavailable MEET, MICHAEL Consulting Unavailable METE, MICHAEL Admitting Unavailable MEET, MICHAEL Attending Unavailable [...] Molina De Anda MD Primary Care Provider [place] MANAGER OF ENVIRONMENTAL SERVICES, Angel Luis Unavailable [place] MANAGER OF ENVIRONMENTAL SERVICES, Angel Luis Unavailable ANGEL LUIS GROVES Attending UnavailPASCALE Azar Attending Unavailable SHAIKH MAIN Attending Unavailable SHAIKH MAIN Attending Unavailable SHAIKH MAIN Attending Unavailable GROVES, ANGEL LUIS Attending Unavailabl e GROVES, ANGEL LUIS Attending Unavailabl e GROVES, ANGEL LUIS Attending Unavailabl e GROVES, ANGEL LUIS Attending Unavailabl e GROVES, ANGEL LUIS Attending Unavailabl e AICHHOLAlex, PASCALE Attending Unavailable Allergies Allergy Classification Reported Allergen(s) Allergy Type Date of Onset Reaction(s) Facility (2 sources) penciclovir; Translations: [penciclovir] Drug Allergy 2 [facility] Repository (5 sources) Penicillins; Translations: [PENICILLINS] Drug allergy (disorder) 4 [facility] Repository (20 sources) Penicillin G Drug Allergy 3 Unknown [facility] (20 sources) Penicillins Propensity to adverse reactions 3 [facility] Healthcare Medications Current Medications Medication Drug Class(es) Dates Sig (Normalized) Sig (Original) [id number] 200 actuat albuterol 0.09 mg/actuat metered dose [...] 90 tablet 0 08/28/2023 11/26/2023 Active Citalopram [place] bromide Active Cymbalta 30 mg Cap-DR (2 [...] propionate 0.05 mg/actuat metered dose nasal spray (18 sources) Corticosteroid Start: 08-12-2024 End: 11-01-2024 take 2 spray(s) nasal route once daily fluticasone (Flonase) 50 MCG/ACT nasal spray Indications: Environmental and seasonal allergies Administer 2 sprays into each nostril Daily Shake gently. Before first use, prime pump. After use, clean tip and replace cap. 16 g 5 10/02/2024 11/01/2024 Active gabapentin 300 mg oral capsule (20 sources) [...] capsule (300 mg) before bedtime. 90 capsule 5 10/02/2024 11/01/2024 Active lactulose 667 mg/ml oral solution (4 [...] lansoprazole (Prevacid) [address] capsule Indications: Gastroesophageal reflux disease, unspecified whether esophagitis present Take 1 capsule (30 mg) by mouth in the morning. Take before meals. 90 capsule 1 10/02/2024 12/31/2024 Active Lansoprazole Act ada meloxicam 15 mg oral tablet (5 sources) Nonsteroidal Anti-inflammatory Drug Start: 10-02-2024 take 1 tablet by mouth once daily meloxicam (Mobic) 15 MG tablet Take 15 mg by mouth Daily 10/02/2024 Active Meloxicam Active phentermine hydrochloride 37.5 mg oral tablet (20 sources) Sympathomimetic Amine Anorectic Start: 07-31-2024 End: 11-01-2024 take 1 tablet by mouth before mealtime phentermine (Adipex-P) 37.5 MG tablet Indications: BMI 34.0-34.9,adult Take 1 tablet (37.5 mg) by mouth in the morning. Take before meals. 30 tablet 10/02/2024 11/01/2024 Active pregabalin (1 source) Pregabalin Activ e [...] mg) by mouth Daily 90 capsule 1 10/02/2024 12/31/2024 Active Tolterodine Tart rate ER Active vitamin [...] day #2-#5 6 tablet 08/12/2024 09/04/2024 Discontinued hyoscyamine sulfate 0.125 mg oral tablet (20 [...] 08/12/2024 Discontinued (Therapy completed) polyethylene glycol 3350 85372 mg powder for oral solution (9 sources) [...] Date Documented Da te Episodic/Chronic Adjustment disorders (16 sources) Stress and adjustment reaction; Translations: [Reaction to severe stress, unspecified] Onset: Chronic Administrative/social admission (16 sources) Stress; Translations: [Finding relating to psychosocial [...] Onset: 3 05-24-2023 Chronic Headache; including migraine (15 sources) Menstrual status migrainosus; Translations: [Menstrual migraine, not intractable, with status migrainosus] Onset: 5 08-12-2024 Chronic Malaise and fatigue (15 sources) Malaise and fatigue; Translations: [Other malaise] [...] 2 Chronic Other aftercare (1 source) Other termination clerk (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; Translations: [OTH CARE HOME CURRENT DRUG THERAPY] Onset: 2 Episodic Other connective tissue disease (4 sources) Pain in left foot; Translations: [PAIN IN LEFT FOOT] Onset: 2 Episodic Other diseases of bladder and urethra (20 sources) Overactive bladder; Translations: [Overactive bladder] Onset: 4 05-24-2023 Chronic Other diseases of bladder and urethra (15 sources) Detrusor overactivity; Translations: [Overactive bladder] Onset: 5 08-12-2024 Chronic Other diseases of bladder and urethra (7 sources) Overactive bladder due to prolapse of female genital organ; Translations: [Overactive bladder] Onset: 5 09-04-2024 Chronic Other female genital disorders (15 sources) Female genital organ symptoms; Translations: [Unspecified [...] Chronic Other nutritional; endocrine; and metabolic disorders (19 sources) Obesity caused by energy imbalance; Translations: [Class 1 obesity due to excess calories without serious comorbidity in adult, unspecified BMI] Onset: 5 08-12-2024 Chronic Other screening for suspected conditions (not mental disorders or infectious disease) (20 sources) Abnormal electrocardiogram [ECG] [EKG]; Translations: [Patient encounter status] Onset: 3 Resolved: 5 Episodic Other upper respiratory disease (20 sources) Allergic disposition; Translations: [Other allergic rhinitis] [...] 3 05-25-2023 Episodic Other connective tissue disease (20 sources) [...] Test Name Value Interpretation Reference Range Facility ALL CBC WITH AUTO DIFFon BASOPHILS ABSOLUTE AUTO 0 [facility] Basophils/100 WBC (Bld) 0.8 % 0.2 - 2.0 % [facility] Eosinophils/100 WBC (Bld) 3.9 % 0.9 - 7.0 % [facility] Erythrocyte distribution width (RBC) [Ratio] 14.2 % 11.0 - 15.0 % [facility] Hematocrit (Bld) [Volume fraction] 32.9 % Low 36.0 - 48.0 % [facility] Hemoglobin (Bld) [Mass/Vol] 10.6 g/dL Low 12.0 - 16.0 g/dL [facility] IMMATURE GRANULOCYTES ABS AUTO 0 [facility] Immature granulocytes/100 WBC (Bld) 0 % 0.0 - 0.5 % [facility] Interpretation and review of laboratory results Abnormal [facility] LYMPHOCYTES ABSOLUTE AUTO 1.6 [facility] Lymphocytes/100 WBC (Bld) 31.7 % 20.5 - 60.0 % [facility] MCH (RBC) [Entitic mass] 29.5 pg 26.7 - 34.0 pg [facility] MCHC (RBC) [Mass/Vol] 32.2 g/dL 29.9 - 35.2 g/dL [facility] MCV (RBC) [Entitic vol] 91.6 fL 81.0 - 99.0 fL [facility] MONOCYTES ABSOLUTE AUTO 0.4 [facility] Monocytes/100 WBC (Bld) 7.2 % 1.7 - 12.0 % [facility] NEUTROPHILS ABSOLUTE AUTO 2.8 [facility] Neutrophils/100 WBC (Bld) 56.4 % 43.0 - 75.0 % [facility] Platelet mean volume (Bld) [Entitic vol] 10.5 fL 9.5 - 13.5 fL [facility] TBH EO # 0.2 [facility]H PLT 199 [facility] TB RBC 3.59 Low [facility] WBC 4.9 [facility] CT FOOT LT WO CONon 09-09-[address] [place] [address] CT Scan Report Signed Patient: TALIA RUTHERFORD MR#: [id number] : 1970 Acct:[id number] Age/Sex: 54 / F ADM Date: 09/09/24 Loc: CT Attending Dr: Tawana Hoff D.P.M. Ordering Physician: Tawana Hoff D.P.M. Date of Service: 09/09/24 Procedure(s): CT foot LT wo con Accession Number(s): [id number] cc: ANGEL LUIS GROVES The [place] [id number] Patient Name: TALIA RUTHERFORD MRN: [facility]:[id number] date: 1970 Sex: F Assigned Patient Location: CT Current Patient Location: CT Accession/Order Number: [id number] Exam Date: 09/09/2024 15:56 Report Date: 09/09/2024 [...] Signed By: 09/09/24 1742 DD/ 1739 TD/TT: Air Traffic Control Operator: [facility] Radiology, Radiologi MD blanche - 09/09/2024 [place] [address] CT Scan Report Signed Patient: TALIA RUTHERFORD MR#: [id number] : 1970 Acct:[id number] Age/Sex: 54 / F ADM Date: 09/09/24 Loc: CT Attending Dr: Tawana Hoff D.P.M. Ordering Physician: Taawna Hoff D.P.M. Date of Service: 09/09/24 Procedure(s): CT foot LT wo con Accession Number(s): [id number] cc: ANGEL LUIS GROVES [place] [address] Patient Name: TALIA RUTHERFORD MRN: [facility]:[id number] date: 1970 Sex: F Assigned Patient Location: CT Current Patient Location: CT Accession/Order Number: [id number] Exam Date: 09/09/2024 15:56 Report Date: 09/09/2024 [...] Dictated By: Cruz Meneses M.D. Signed By: 09/09/241741 DD/ 173 TD/TT: Air Traffic Control Operator: [facility] Radiology Study observation (narrative) [facility] CT FOOT LT WO CONOrdered By: Radiologist Radiology on 09-09-2024 [facility] Work Phone: XR FOOT LT MIN 3Von 09-05-19 [place] [address] XRay Report Signed Patient: TALIA RUTHERFORD MR#: [id number] : 1970 Acct:[id number] Age/Sex: 54 / F ADM Date: 09/04/24 Loc: EC Attending Dr: Tawana Hoff D.P.M. Ordering Physician: Tawana Hoff D.P.M. Date of Service: 09/04/24 Procedure(s): XR foot LT min 3V Accession Number(s): [id number] cc: ANGEL LUIS GROVES; Tawana Hoff D.P.M. The [address] [address] Patient Name: TALIA RUTHERFORD MRN: [facility]:[id number] date: 1970 Sex: F Assigned Patient Location: Current Patient Location: Accession/Order Number: [id number] Exam Date: 09/04/2024 15:53 Report Date: 09/05/2024 [...] Signed By: 09/05/24 1019 DD/ 1016 TD/TT: Air Traffic Control Operator: [facility] Radiology, Radiologi MD blanche - 09/05/[address] [address] XRay Report Signed Patient: TALIA RUTHERFORD MR#: [id number] : 1970 Acct:[id number] Age/Sex: 54 / F ADM Date: 09/04/24 Loc: EC Attending Dr: Tawana Hoff D.P.M. Ordering Physician: Tawana Hoff D.P.M. Date of Service: 09/04/24 Procedure(s): XR foot LT min 3V Accession Number(s): [id number] cc: NASH GROVES Peter D.P.M. [address] [address] Patient Name: TALIA RUTHERFORD MRN: [facility]:[id number] date: 1970 Sex: F Assigned Patient Location: Current Patient Location: Accession/Order Number: [id number] Exam Date: 09/04/2024 15:53 Report Date: 09/05/2024 [...] Signed By: 09/05/24 1019 DD/ 1016 TD/TT: Air Traffic Control Operator: [facility] Radiology Study observation (narrative) [facility] XR FOOT LT MIN 3VOrdered By: Radiologist Radiology on 09-05-2024 [facility] Work Phone: CHRONIC WOUND/ULCER (HTRX)on 08-14-2024 ACINETOBACTER [...] [facility] STAPHYLOCOCCUS AUREUS (CHRONIC WOUND/ULCER) 0 [facility] STAPHYLOCOCCUS AUREUS (CHRONIC WOUND/ULCER) Not [facility] STAPHYLOCOCCUS EPIDERMIDIS, HAEMOLYTICUS, LUGDUNENSIS, SAPROPHYTICUS (CHRON 23.533 Abnormal [facility] STAPHYLOCOCCUS EPIDERMIDIS, HAEMOLYTICUS, LUGDUNENSIS, SAPROPHYTICUS (CHRON Detected Abnormal [facility] STREPTOCOCCUS PYOGENES (GROUP A STREP) (CHRONIC WOUND/ULCER) 0 [facility] STREPTOCOCCUS PYOGENES (GROUP A STREP) (CHRONIC WOUND/ULCER) Not detected [facility] VARICELLA ZOSTER VIRUS (HUMAN HERPESVIRUS 3) (CHRONIC WOUND/ULCER) 0 [facility] VARICELLA ZOSTER VIRUS (HUMAN HERPESVIRUS 3) (CHRONIC WOUND/ULCER) Not detected [facility] VIBRIO CHOLERAE, PARAHAEMOLYTICUS, VULNIFICUS (CHRONIC WOUND/ULCER) 0 [facility] VIBRIO CHOLERAE, PARAHAEMOLYTICUS, VULNIFICUS (CHRONIC WOUND/ULCER) Not detected [facility] ALL CBC WITH AUTO DIFFon BASOPHILS ABSOLUTE AUTO 0 [facility] Basophils/100 WBC (Bld) 0.6 % 0.2 - 2.0 % [facility] Eosinophils/100 WBC (Bld) 0 % Low 0.9 - 7.0 % [facility] Erythrocyte distribution width (RBC) [Ratio] 13.6 % 11.0 - 15.0 % [facility] Hematocrit (Bld) [Volume fraction] 37.4 % 36.0 - 48.0 % [facility] Hemoglobin (Bld) [Mass/Vol] 12.1 g/dL 12.0 - 16.0 g/dL [facility] IMMATURE GRANULOCYTES ABS AUTO 0.01 [facility] Immature granulocytes/100 WBC (Bld) 0.2 % 0.0 - 0.5 % [facility] Interpretation and review of laboratory results Abnormal [facility] LYMPHOCYTES ABSOLUTE AUTO 1.1 Low [facility] Lymphocytes/100 WBC (Bld) 19.9 % Low 20.5 - 60.0 % [facility] MCH (RBC) [Entitic mass] 29.4 pg 26.7 - 34.0 pg [facility] MCHC (RBC) [Mass/Vol] 32.4 g/dL 29.9 - 35.2 g/dL [facility] MCV (RBC) [Entitic vol] 91 fL 81.0 - 99.0 fL [facility] MONOCYTES ABSOLUTE AUTO 0.2 Low [facility] Monocytes/100 WBC (Bld) 4.2 % 1.7 - 12.0 % [facility] NEUTROPHILS ABSOLUTE AUTO 4.1 [facility] Neutrophils/100 WBC (Bld) 75.1 % High 43.0 - 75.0 % [facility] Platelet mean volume (Bld) [Entitic vol] 9.7 fL 9.5 - 13.5 fL [facility] TBH EO # 0 [facility] TBH PLT 256 [facility] TB RBC 4.11 Low [facility] WBC 5.4 [facility] SS-A/Ro Sjogrens Antibodyon 04-18-2024 SS-A/Ro Sjogrens Antibody <0.2 Normal 0.0-0.9 [facility] Comment on above: Performed By: #### S SB, SSA #### [facility] , SS-B/La Sjogrens Antibodyon 04-18-2024 SS-B/La Sjogrens Antibody <0.2 Normal 0.0-0.9 [facility] Comment on above: Result Comment: Perf ormed at: CB - [facility] [address] [id number] Dna Sequencing Associate: Hector Franco PhD, Phone: [phone] PERFORMED BY: [place] [id number] PATHOLOGIST COMMISSION ASSOCIATE LEAH SANFORD M.D. Performed By: #### S SB, SSA #### [facility] , Ambulatory Visit Summaryon 0 03-18-2024 Ambulatory Visit Summary Ambulatory Visit Summary TALIA RUTHERFORD :1970 Visit Date:03/18/2024 Ambulatory Visit Instructions Your Diagnosis Constipation Left upper quadrant pain Stress Your Care Team Attending Physician - Jelnai WELLER, Ron Martin Primary Care Physician - [...] choosing us for your care. Ezequiel Conrad [facility] Gastroenterology Office/Clin ic Noteon 03-18-2024 Gastroenterology [...] inactivated - Not Given Patient Refuses Normal [facility] Comment on above: Result Comment: Elec tronically Signed By: Jelani WELLER, Ron Martin\.br\Date and Time Signed: 03/18/24 15:21 EDT Outside Colonoscopyon 2023 Outside Colonoscopy [id number]#1.00TIFF [facility] Reminderson 07-20-2023 Reminders - From: Machelle Arauz LPN To: [facility] - Clinical; Sent: 07/20/2023 10:55:11 EST Show up: 06/19/2033 07:00:00 EST Subject: colonoscopy recall Due Date/Time: 07/19/2033 07:00:00 EST Reminder/Recall Patient due for screening colonoscopy 07/19/2033. Normal [facility] Lab Reportson 06-26-2023 Lab Reports [id number]#1.00TIFF [facility] Insurance Correspondenceon 1 08-09-2022 Insurance Correspondence [id number]#1.00TIFF [facility] Facesheeton 06-08-2023 Facesheet [id number]#1.00TIFF [facility] Physician Referralon 023 Physician Referral [id number]#1.00TIFF [facility] Ambulatory Visit Summaryon 1 08-07-2022 Ambulatory Visit Summary KRISH, TALIA D :1970 Visit Date:06/07/2023 Ambulatory Visit Instructions Your Care Team Attending Physician - AMIE WELLER, Segun Denis Primary Care Physician - ETELVINA WELLER, BUNN This Is Your Medications List aripiprazole (aripiprazole 10 mg Tab) duloxetine (Cymbalta 30 mg Cap-DR) ferrous sulfate (ferrous sulfate 325 mg Tab) fexofenadine-pseudoephedrin e (Layla D OTC 24HR) lansoprazole (lansoprazole 30 mg Cap-DR) tolterodine (Detrol LA 4 mg Cap-ER) Procedures Performed EGD - esophagogastroduodenoscopy (02/09/2023), Gastric bypass (2019), Cystoscopy (2018), Cystoscopy (2018), Cholecystectomy, Repair of cystocele, Tubal ligation. Discharge [...] you for choosing us for your care. [facility] Lab Reportson 05-31-2023 Lab Reports [id number]#1.00TIFF [facility] Consultation Noteon 05-25-20 23 Consultation Note [id number]#1.00TIFF [facility] Physician Referralon 023 Physician Referral [id number]#1.00TIFF [facility] Office Visiton 04-07-2023 Follow-up visit [id number] Norma Rutherford 1970 F Date Provider Department Center 04/07/2023 95667-JOQSGOEQCCAROL JACOBO Family History Problem Relation Age of Onset Brain Aneurysm Mother 80 Diabetes Mother Heart failure Father 80 Diabetes Father Hypertension Father Diabetes Sister Family Status - Relation Status Age at Mother Father Sister Level of Service:01563 SD OFFICE/OUTPATIENT ESTABLISHED MOD MDM 30-39 MIN Normal [facility] 36on 02-08-2023 36 [facility] lab called to re port critical HGB and hematocrit for patient: HGB was 5.1 and hematocrit is 18.9. I spoke with Talia and advised she go to the ED. She verbalized understanding and will do so. Normal [facility] Office Visiton 02-08-2023 Follow-up visit [id number] Norma Rutherford 1970 F Date Provider Department Center 02/08/202349521-ISZUTYAOXCAROL JACOBO Family History Problem Relation Age of Onset Brain Aneurysm Mother 80 Diabetes Mother Heart failure Father 80 Diabetes Father Hypertension Father Diabetes Sister Family Status - Relation Status Age at Mother Father Sister Level of Service:49480 SD OFFICE/OUTPATIENT NEW MODERATE MDM 45-59 MINUTES Reason for Visit and Comments: Establish Care [42] - Swelling in both legs,right leg is itching and painful Shortness of Breath [686041] Dizziness [896004] Fatigue [46] Normal [facility] PREG HCG QUALon 03-10-2022 , QUAL Negative Normal NEGATIVE [facility] Comment on above: Performed By: #### P REG ####[facility] [address] [place], [place] [address]DjConsuelo Johnson Covid-19 PCR (CVDTBH)on 02-21 SARS-CoV-2 (COVID-19) RNA EMMANUEL+probe Ql (Unsp spec) Not detected Normal NOT DETECTED [facility] Comment on above: Result Comment: This test is not yet approved or cleared by the [place] FDA. When there are no FDA-approved or cleared tests available, and other criteria are met, FDA can make tests available under an emergency access mechanism called an Emergency Use Authorization (EUA). The EUA for this test is supported by the [place] of Health and Human Service's (HHS's) declaration [...] By: #### C VDTB #### [facility] [address] [place], [place] [address] Dr. Moni Johnson PROF CHEM 8 (BAS METB)on Anion gap [Moles/Vol] 9.0 mmol/L Normal [facility] Comment on above: Performed By: #### B MP ####[facility] [address] [place] [address]DrConsuelo Johnson Calcium [Mass/Vol] 8.3 mg/dL Critically low 8.5-10.1 Th [facility] Comment on above: Performed By: #### B MP ####[facility] [address] [place] [address]Dr. Moni Johnson Chloride [Moles/Vol] 106 mmol/L Normal 98-107 [facility] Comment on above: Performed By: #### B MP ####[facility] [address] [place] [id number] Johnson CO2 [Moles/Vol] 29.2 mmol/L Normal 21.0-32.0 [facility] Comment on above: Performed By: #### B MP ####[facility] [address] [place] [address]DrConsuelo Johnson Creatinine [Mass/Vol] 0.78 mg/dL Normal 0.55-1.02 [facility] Comment on above: Performed By: #### B MP ####[facility] [address] [place] [address]Dr. Moni Johnson EGFR-AF BENINESE >60 Normal >=60 [facility] Comment on above: Performed By: #### B MP ####[facility] [address] [place] [address]Dr. Moni Johnson EGFR-NON AF BENINESE >60 Normal >=60 [facility] Comment on above: Performed By: #### B MP ####[facility] [address] [place] [address]Dr. Moni Johnson Glucose [Mass/Vol] 88 mg/dL Normal 74-106 [facility] Comment on above: Performed By: #### B MP ####[facility] [address] [place] [address]Dr. Moni Johnson Potassium [Moles/Vol] 4.2 mmol/L Normal 3.5-5.1 [facility] Comment on above: Performed By: #### B MP ####[facility] [address] [place], [place] [address]Dr. Moni Johnson Sodium [Moles/Vol] 140 mmol/L Normal 136-145 [facility] Comment on above: Performed By: #### B MP ####[facility] [address] [place] [address]Dr. Moni Johnson Urea nitrogen [Mass/Vol] 21.0 mg/dL Critically high 7.0-18.0 [facility] Comment on above: Performed By: #### B MP ####[facility] [address] [place], [place] [address]Dr. Moni Johnson Urea nitrogen/Creatinine [Mass ratio] 26.9 mg/mg Normal [facility] Comment on above: Performed By: #### B MP ####[facility] [address] [place], [place] [address]Dr. Moni Johnson CT FOOT LT WO CONon [...] ELLIOT ALSTON Date: 2022-02-22 18:32 Normal [facility] COVID Quick Testingon 2021 Result Negative [facility] Other Quick Fluon 08-30-2021 FLUAV Ab CF (S) [Titer] Negative [facility] Other FLUBV Ab CF (S) [Titer] Negative [facility] Other Covid-19 PCR ([facility])on 05-24 SARS-CoV-2 (COVID-19) RNA EMMANUEL+probe Ql (Unsp spec) Not detected Normal NOT DETECTED [facility] Comment on above: Result Comment: This test is not yet approved or cleared by the [place] FDA. When there are no FDA-approved or cleared tests available, and other criteria are met, FDA can make tests available under an emergency access mechanism called an Emergency Use Authorization (EUA). The EUA for this test is supported by the [place] of Health and Human Service's (HHS's) declaration [...] consistent with SARS-CoV-2. Performed By: #### [facility] #### [facility] [address] [place] [address] [address] Moni Johnson Vital Signs Date Time Vital Sign Value Performing Clinician Facility 10-02-2024 16:51-0400 Body height 165.1 cm Pascale Lastdes MANAGER OF ENVIRONMENTAL SERVICES Work Phone: [facility] 10-02-2024 16:51-0400 Body mass index (BMI) [Ratio] 33.51 kg/m2 Pacsaleeric Lastholz MANAGER OF ENVIRONMENTAL SERVICES Work Phone: [facility] 10-02-2024 16:51-0400 Body temperature 97.81 [degF] Pascale Shalaholz MANAGER OF ENVIRONMENTAL SERVICES Work Phone: [facility] 10-02-2024 16:51-0400 Body weight 91.35 kg Pascale Shalaholz MANAGER OF ENVIRONMENTAL SERVICES Work Phone: [facility] 10-02-2024 16:51-0400 Heart rate 68 /min Pascaleeric Lastholz MANAGER OF ENVIRONMENTAL SERVICES Work Phone: [facility] 10-02-2024 16:51-0400 Respiratory rate 18 /min Pascale Shalaholz MANAGER OF ENVIRONMENTAL SERVICES Work Phone: [facility] 10-02-2024 16:51-0400 SaO2% (BldA) [Mass fraction] 97 % Pascale Shalaholz MANAGER OF ENVIRONMENTAL SERVICES Work Phone: [facility] 09-04-2024 16:10-0500 Body height 165.1 cm Angel Luis Groves MANAGER OF ENVIRONMENTAL SERVICES Work Phone: [facility] 09-04-2024 16:10-0500 Body mass index (BMI) [Ratio] 33.28 kg/m2 Angel Luis Gro[place] MANAGER OF ENVIRONMENTAL SERVICES Work Phone: [facility] 09-04-2024 16:10-0500 Body temperature 97.2 [degF] Angel Luis Groves MANAGER OF ENVIRONMENTAL SERVICES Work Phone: [facility] 09-04-2024 16:10-0500 Body weight 90.72 kg Angel Luis Groves MANAGER OF ENVIRONMENTAL SERVICES Work Phone: [facility] 09-04-2024 16:10-0500 Diastolic blood pressure 60 mm[Hg] Angel Luis Groves MANAGER OF ENVIRONMENTAL SERVICES Work Phone: [facility] 09-04-2024 16:10-0500 Heart rate 79 /min Angel Luis Groves MANAGER OF ENVIRONMENTAL SERVICES Work Phone: [facility] 09-04-2024 16:10-0500 Respiratory rate 16 /min Angel Luis Groves MANAGER OF ENVIRONMENTAL SERVICES Work Phone: [facility] 09-04-2024 16:10-0500 SaO2% (BldA) [Mass fraction] 98 % Angel Luis Groves MANAGER OF ENVIRONMENTAL SERVICES Work Phone: [facility] 09-04-2024 16:10-0500 Systolic blood pressure 100 mm[Hg] Angel Luis Groves MANAGER OF ENVIRONMENTAL SERVICES Work Phone: [facility] 08-12-2024 16:04-0500 Body mass index (BMI) [Ratio] 33.32 kg/m2 Pascale Aichholz MANAGER OF ENVIRONMENTAL SERVICES Work Phone: [facility] 08-12-2024 16:04-0500 Body temperature 98.1 [degF] Pascale Aichholz MANAGER OF ENVIRONMENTAL SERVICES Work Phone: [facility] 08-12-2024 16:04-0500 Body weight 90.81 kg Pascale Aichholz MANAGER OF ENVIRONMENTAL SERVICES Work Phone: [facility] 08-12-2024 16:04-0500 Diastolic blood pressure 62 mm[Hg] Pascale Aichholz MANAGER OF ENVIRONMENTAL SERVICES Work Phone: [facility] 08-12-2024 16:04-0500 Heart rate 80 /min Pascale Aichholz MANAGER OF ENVIRONMENTAL SERVICES Work Phone: [facility] 08-12-2024 16:04-0500 Respiratory rate 20 /min Pascale Aichholz MANAGER OF ENVIRONMENTAL SERVICES Work Phone: [facility] 08-12-2024 16:04-0500 SaO2% (BldA) [Mass fraction] 97 % Pascale Aichholz MANAGER OF ENVIRONMENTAL SERVICES Work Phone: [facility] 08-12-2024 16:04-0500 Systolic blood pressure 90 mm[Hg] Pascale Arana MANAGER OF ENVIRONMENTAL SERVICES Work Phone: [facility] 07-31-2024 14:59-0500 Body height 165.1 cm Angel Luis Groves MANAGER OF ENVIRONMENTAL SERVICES Work Phone: [facility] 07-31-2024 14:59-0500 Body mass index (BMI) [Ratio] 34.28 kg/m2 Angel Luis Groves MANAGER OF ENVIRONMENTAL SERVICES Work Phone: [facility] 07-31-2024 14:59-0500 Body temperature 96.21 [degF] Angel Luis Groves MANAGER OF ENVIRONMENTAL SERVICES Work Phone: [facility] 07-31-2024 14:59-0500 Body weight 93.44 kg Angel Luis Groves MANAGER OF ENVIRONMENTAL SERVICES Work Phone: [facility] 07-31-2024 14:59-0500 Diastolic blood pressure 62 mm[Hg] Angel Luis Groves MANAGER OF ENVIRONMENTAL SERVICES Work Phone: [facility] 07-31-2024 14:59-0500 Heart rate 83 /min Angel Luis Groves MANAGER OF ENVIRONMENTAL SERVICES Work Phone: [facility] 07-31-2024 14:59-0500 Respiratory rate 22 /min Angel Luis Groves MANAGER OF ENVIRONMENTAL SERVICES Work Phone: [facility] 07-31-2024 14:59-0500 SaO2% (BldA) [Mass fraction] 98 % Angel Luis Groves MANAGER OF ENVIRONMENTAL SERVICES Work Phone: [facility] 07-31-2024 14:59-0500 Systolic blood pressure 100 mm[Hg] Angel Luis Groves MANAGER OF ENVIRONMENTAL SERVICES Work Phone: [facility] 04-10-2024 15:56-0400 Body height 165.1 cm Angel Luis Groves MANAGER OF ENVIRONMENTAL SERVICES Work Phone: [facility] 04-10-2024 15:56-0400 Body mass index (BMI) [Ratio] 33.61 kg/m2 Angel Luis Groves MANAGER OF ENVIRONMENTAL SERVICES Work Phone: [facility] 04-10-2024 15:56-0400 Body temperature 98.29 [degF] Angel Luis Groves MANAGER OF ENVIRONMENTAL SERVICES Work Phone: [facility] 04-10-2024 15:56-0400 Body weight 91.63 kg Angel Luis Groves MANAGER OF ENVIRONMENTAL SERVICES Work Phone: [facility] 04-10-2024 15:56-0400 Diastolic blood pressure 68 mm[Hg] Angel Luis Groves MANAGER OF ENVIRONMENTAL SERVICES Work Phone: [facility] 04-10-2024 15:56-0400 Heart rate 67 /min Angel Luis Groves MANAGER OF ENVIRONMENTAL SERVICES Work Phone: [facility] Comment on above: 98% O2 04-10-2024 15:56-0400 Systolic blood pressure 100 mm[Hg] Angel Luis Groves MANAGER OF ENVIRONMENTAL SERVICES Work Phone: [facility] 03-18-2024 15:06-0400 Blood Pressure Location Ron Palomares [facility] 03-18-2024 15:06-0400 Diastolic blood pressure 69 mm[Hg] Ron Palomares [facility] 03-18-2024 15:06-0400 Heart rate 85 /min Mohcarmela Modania [facility] 03-18-2024 15:06-0400 Respiratory rate 16 /min Mohlilod Jelani [facility] 03-18-2024 15:06-0400 Systolic blood pressure 107 mm[Hg] Ron Palomares [facility] 03-12-2024 15:46-0400 Body height 165.1 cm Angel Luis Groves MANAGER OF ENVIRONMENTAL SERVICES Work Phone: [facility] 03-12-2024 15:46-0400 Body mass index (BMI) [Ratio] 33.28 kg/m2 Angel Luis Groves MANAGER OF ENVIRONMENTAL SERVICES Work Phone: [facility] 03-12-2024 15:46-0400 Body temperature 98.01 [degF] Angel Luis Groves MANAGER OF ENVIRONMENTAL SERVICES Work Phone: [facility] 03-12-2024 15:46-0400 Body weight 90.72 kg Angel Luis Groves MANAGER OF ENVIRONMENTAL SERVICES Work Phone: [facility] 03-12-2024 15:46-0400 Diastolic blood pressure 70 mm[Hg] Angel Luis Groves MANAGER OF ENVIRONMENTAL SERVICES Work Phone: [facility] 03-12-2024 15:46-0400 Heart rate 71 /min Angel Luis Groves MANAGER OF ENVIRONMENTAL SERVICES Work Phone: [facility] Comment on above: 99% O2 03-12-2024 15:46-0400 Systolic blood pressure 100 mm[Hg] Angel Luis Groves MANAGER OF ENVIRONMENTAL SERVICES Work Phone: [facility] 06-07-2023 16:03-0500 Blood Pressure Location Segun MONTSEL [facility] 06-07-2023 16:03-0500 Diastolic blood pressure 88 mm[Hg] Segun WILLARDL [facility] 06-07-2023 16:03-0500 Heart rate 72 /min Segun WILLARDL [facility] 06-07-2023 16:03-0500 Respiratory rate 16 /min Segun WILLARDL [facility] 06-07-2023 16:03-0500 Systolic blood pressure 130 mm[Hg] Segun DUARTE [facility] 08-30-2021 13:00-0500 Body height 165.1 cm Kristin Ginty Other [facility] Other 08-30-2021 13:00-0500 Body mass index (BMI) [Ratio] 30.95 kg/m2 Kristin Ginty Other [facility] Other 08-30-2021 13:00-0500 Body temperature 98 [degF] Kristin Ginty Other [facility] Other 08-30-2021 13:00-0500 Body weight 84.37 kg Kristin Ginty Other [facility] Other 08-30-2021 13:00-0500 Respiratory rate 16 /min Kristin Ginty Other [facility] Other 08-30-2021 13:00-0500 SaO2% (BldA) [Mass fraction] 98 % Kristin Ginty Other [facility] Other Encounters Encounter Date Encounter Type Care Provider Facility Start: 10-03-2024 End: 10-03-2024 Clinisync Result Encounter Pascale Arana NP Work Phone: [facility] Unsolicited Start: 10-03-2024 End: 10-03-2024 Clinisync Result Encounter Pascale Arana NP Work Phone: [facility] Unsolicited Start: 10-02-2024 End: 10-02-2024 Office outpatient visit 25 minutes Pascale Arana NP Work Phone: [facility] Comment on above: Gastroesophageal ref lux disease, [...] organ; BMI 34.0-34.9,adult Start: 10-02-2024 End: 10-02-2024 ambulatory PASCALE SUMIT Not Available Start: 10-02-2024 End: 10-02-2024 Bamboo flowsheet Pascale Sumit MANAGER OF ENVIRONMENTAL SERVICES Work Phone: [facility] Start: 10-02-2024 End: 10-02-2024 Bamboo flowsheet Pascale Sumit MANAGER OF ENVIRONMENTAL SERVICES Work Phone: [facility] Start: 09-09-2024 End: 09-09-2024 Clinisync Result Encounter Generic External Data Provider [facility] Unsolicited Start: 09-09-2024 End: 09-09-2024 Clinisync Result Encounter Generic External Data Provider [facility] Unsolicited Start: 09-06-2024 End: 09-09-2024 Refill Pascale Arana MANAGER OF ENVIRONMENTAL SERVICES Work Phone: [facility] Comment on above: Environmental and se asonal allergies Start: 09-05-2024 End: 09-05-2024 Clinisync Result Encounter Generic External Data Provider [facility] Unsolicited Start: 09-05-2024 End: 09-05-2024 Clinisync Result Encounter Generic External Data Provider [facility] Unsolicited Start: 09-04-2024 End: 09-04-2024 Office outpatient visit 10 minutes Angel Luis Groves MANAGER OF ENVIRONMENTAL SERVICES Work Phone: [facility] Comment on above: BMI 33.0-33.9,adult (Primary Dx); Bipolar disorder with severe depression ([facility]); Fibromyalgia; Gastro-esophageal reflux disease without esophagitis; Esophageal reflux; BMI 34.0-34.9,adult; Psychophysiological insomnia; Overactive bladder due to prolapse of female genital organ Start: 09-04-2024 End: 09-04-2024 ambulatory ANGEL LUIS GROVES Not Available Start: 09-04-2024 End: 09-04-2024 Bamboo flowsheet Angel Luis Nolanpatrick MANAGER OF ENVIRONMENTAL SERVICES Work Phone: [facility] Start: 09-04-2024 End: 09-04-2024 Bamboo flowsheet Angel Luis Groves MANAGER OF ENVIRONMENTAL SERVICES Work Phone: [facility] Start: 08-28-2024 End: 08-28-2024 Refill Angel Luis Mathurtrick MANAGER OF ENVIRONMENTAL SERVICES Work Phone: [facility] Comment on above: Fibromyalgia Start: 08-14-2024 End: 08-14-2024 Refill Angel Luis Mathurtrick MANAGER OF ENVIRONMENTAL SERVICES Work Phone: [facility] Comment on above: Fibromyalgia Start: 08-12-2024 End: 08-12-2024 Office outpatient visit 25 minutes Pascale Arana MANAGER OF ENVIRONMENTAL SERVICES Work Phone: [facility] Comment on above: Acute non-recurrent maxillary sinusitis (Primary Dx); Cigarette nicotine dependence without complication; Class 1 obesity due to excess calories without serious comorbidity in adult, unspecified BMI; Environmental and seasonal allergies; Cutaneous abscess of abdominal wall Start: 08-12-2024 End: 08-12-2024 ambulatory PASCALE ARANA Not Available Start: 08-12-2024 End: 08-12-2024 Bamboo flowsheet Pascale Sumit MANAGER OF ENVIRONMENTAL SERVICES Work Phone: [facility] Start: 08-12-2024 End: 08-14-2024 Bamboo flowsheet Pascale Sumit MANAGER OF ENVIRONMENTAL SERVICES Work Phone: [facility] Start: 08-12-2024 End: 08-14-2024 External Result Encounter Pascale Arana MANAGER OF ENVIRONMENTAL SERVICES Work Phone: [facility] Unsolicited Start: 08-05-2024 End: 08-06-2024 Orders Only Angel Luis Groves MANAGER OF ENVIRONMENTAL SERVICES Work Phone: [facility] Comment on above: B12 deficiency (Prim radha Dx); Iron deficiency anemia, unspecified iron deficiency anemia type Start: 08-01-2024 End: 08-01-2024 Clinisync Result Encounter Angel Lusi Brittonzpatrick MANAGER OF ENVIRONMENTAL SERVICES Work Phone: [facility] Unsolicited Start: 08-01-2024 End: 08-01-2024 Clinisync Result Encounter Angel Luis Groves MANAGER OF ENVIRONMENTAL SERVICES Work Phone: [facility] Unsolicited Start: 07-31-2024 End: 07-31-2024 Office outpatient visit 15 minutes Angel Luis Nolanpatrick MANAGER OF ENVIRONMENTAL SERVICES Work Phone: [facility] Comment on above: Iron deficiency anem ia secondary to inadequate dietary iron intake (Primary Dx); Fibromyalgia; Psychophysiological insomnia; BMI 34.0-34.9,adult Start: 07-31-2024 End: 07-31-2024 ambulatory ANGEL LUIS GROVES Not Available Start: 07-31-2024 End: 07-31-2024 Bamboo flowsheet Angel Luis Groves MANAGER OF ENVIRONMENTAL SERVICES Work Phone: [facility] Start: 07-31-2024 End: 07-31-2024 Bamboo flowsheet Angel Luis Groves MANAGER OF ENVIRONMENTAL SERVICES Work Phone: [facility] Start: 07-25-2024 End: 07-29-2024 Refill Angel Luis Groves MANAGER OF ENVIRONMENTAL SERVICES Work Phone: [facility] Comment on above: Psychophysiological insomnia Start: 06-25-2024 End: 06-25-2024 Refill Angel Luis Groves MANAGER OF ENVIRONMENTAL SERVICES Work Phone: [facility] Comment on above: Psychophysiological insomnia Start: 06-11-2024 End: 06-11-2024 Orders Only Angel Luis Groves MANAGER OF ENVIRONMENTAL SERVICES Work Phone: [facility] Comment on above: Fibromyalgia (Primar y Dx) Start: 06-03-2024 End: 06-03-2024 Refill Angel Luis Groves MANAGER OF ENVIRONMENTAL SERVICES Work Phone: [facility] Comment on above: Fibromyalgia Start: 05-27-2024 End: 05-27-2024 Orders Only Angel Luis Groves MANAGER OF ENVIRONMENTAL SERVICES Work Phone: [facility] Comment on above: Psychophysiological insomnia (Primary Dx) Start: 04-18-2024 End: 04-18-2024 Patient encounter procedure MD Tyson Collazo Work Phone: [facility] [address] Work Phone: Start: 04-18-2024 End: 04-18-2024 ambulatory Tyson Collazo [facility] Work Phone: Start: 04-10-2024 End: 04-10-2024 Office outpatient visit 15 minutes Angel Luis Groves MANAGER OF ENVIRONMENTAL SERVICES Work Phone: [facility] Comment on above: Psychophysiological insomnia (Primary Dx); Fibromyalgia; Constipation, unspecified constipation type Start: 04-10-2024 End: 04-10-2024 ambulatory ANGEL LUIS GROVES Not Available Start: 04-10-2024 End: 04-10-2024 Bamboo flowsheet Angel Luis Groves MANAGER OF ENVIRONMENTAL SERVICES Work Phone: [facility] Start: 04-10-2024 End: 04-10-2024 Bamboo flowsheet Angel Luis Groves MANAGER OF ENVIRONMENTAL SERVICES Work Phone: [facility] Start: 03-18-2024 End: 03-18-2024 ambulatory Ron Palomares Facility:[facility] Start: 03-18-2024 End: 03-18-2024 Patient encounter procedure Ron Palomares [facility] Start: 03-13-2024 End: 03-13-2024 Refill Angel Luis Groves MANAGER OF ENVIRONMENTAL SERVICES Work Phone: [facility] Comment on above: Fibromyalgia (Primar y Dx) Start: 03-12-2024 End: 03-12-2024 Office outpatient visit 15 minutes Angel Luis Groves MANAGER OF ENVIRONMENTAL SERVICES Work Phone: [facility] Comment on above: Constipation, unspec ified constipation type (Primary Dx); Fibromyalgia Start: 03-12-2024 End: 03-12-2024 ambulatory ANGEL LUIS GROVES Not Available Start: 03-12-2024 End: 03-12-2024 Bamboo flowsheet Angel Luis Groves MANAGER OF ENVIRONMENTAL SERVICES Work Phone: [facility] Start: 03-12-2024 End: 03-12-2024 Bamboo flowsheet Angel Luis Groves MANAGER OF ENVIRONMENTAL SERVICES Work Phone: [facility] Start: 03-07-2024 ambulatory Ron Palomares Facilit y:Sheryl BLAND Start: 03-06-2024 End: 03-06-2024 ambulatory ANGEL LUIS GROVES Not Available Start: 02-28-2024 End: 02-28-2024 ambulatory ANGEL LUIS GROVES Not Available Start: 02-26-2024 Non-patient / Non-visit MD Roel Collazo Work Phone: [facility] Work Phone: Start: 01-22-2024 End: 01-22-2024 ambulatory BUNN FAWWAD Not Available Start: 01-08-2024 End: 01-08-2024 ambulatory BUNN FAWWAD Not Available Start: 11-13-2023 End: 11-13-2023 ambulatory BUNN FAWWAD Not Available Start: 08-25-2023 Refill Shaikh Etelvina WELLER Work Phone: [facility] Comment on above: Bipolar disorder wit h severe depression (CMS/HCC) Start: 07-19-2023 End: 07-19-2023 ambulatory Segun DUARTE Facility:CD:[id number] Start: 06-07-2023 End: 06-07-2023 ambulatory Segun DUARTE Facility:[facility] Start: 06-07-2023 End: 06-07-2023 Patient encounter procedure Segun DUARTE General Surgery Nill/Terri Alcala Start: 06-05-2023 ambulatory Ron Maddoxli Facilit y:STEPHANIE Fredrick Start: 05-18-2023 ambulatory Mohamad Mouchli Facilit y:STEPHANIE [place] Start: 04-07-2023 End: 04-07-2023 ambulatory [facility] Start: 02-08-2023 ambulatory [facility] Start: 05-31-2022 End: 06-01-[address] TAMIKO NETTLES Facility:[facility] Start: 05-10-2022 End: 05-11-[address] ELLIOT ALSTON Facility:[facility] Start: 04-19-2022 End: 04-20-2022 ambulatory MICHAEL DSOUZA Facility:[facility] Start: 03-29-2022 End: 03-30-2022 ambulatory MICHAEL DSOUZA Facility:[facility] Start: 03-10-2022 End: 03-10-2022 ambulatory TAWANA HOFF Facility:[facility] Start: 03-07-2022 Encounter for prepro cedural cardiovascular examination [facility]it[facility] Start: 03-07-2022 Encounter for prepro cedural laboratory examination [facility] Letitia [facility] Start: 03-03-2022 End: 03-04-2022 ambulatory TAWANA Dong [facility] Facility:[facility] Start: 03-03-2022 End: 03-04-2022 Encounter for preprocedural laboratory examination TAWANA Dong [facility] Facility:[facility] Start: 02-22-2022 End: 02-23-2022 ambulatory TAWANA Dong [facility] Facility:[facility] Start: 02-09-2022 End: 02-10-2022 ambulatory TAWANA Dong [facility] Facility:[facility] Start: 08-30-2021 End: 08-30-2021 ambulatory Kristin Quintana Other [facility] Other Start: 08-30-2021 Office outpatient vi sit 15 minutes Kristin Quintana [facility] Start: 06-07-2021 End: 06-07-[address] GRISELDA SCOTT Facility: Start: 11-14-2018 End: 11-15-2018 Patient encounter procedure DEFAULT PHYSICIAN Facility:[facility] Procedures Date Procedure Procedure Detail Performing Clinician Start: 10-03-2024 ALL CBC WITH AUTO DIFF Pascale Arana MANAGER OF ENVIRONMENTAL SERVICES Work Phone: Start: 09-09-2024 CT FOOT LT WO CON Gener [facility] External Data Provider Start: 09-05-2024 XR FOOT LT MIN 3V [facility] External Data Provider Start: 08-12-2024 CHRONIC WOUND/ULCER (HTRX) Pascale Arana MANAGER OF ENVIRONMENTAL SERVICES Work Phone: Start: 08-01-2024 ALL CBC WITH AUTO DIFF Angel Luis Groves MANAGER OF ENVIRONMENTAL SERVICES Work Phone: Start: 07-19-2023 Colonoscopy Shaikh Sahil whitney MD Work Phone: Start: 02-09-2023 Esophagogastroduodenoscopy Segun DUARTE Start: 07-24-2019 Bypass of stomach Wagner indra NILJavier Start: 07-24-2018 Transurethral cystoscopy Segun NILJavier Start: 07-24-2017 Transurethral cystoscopy Segun NILL Cholecystectomy Segun NILJavier Ligation of fallopian tube Lashaun davis NILJavier Repair of cystocele Segun NILL Plan of Treatment Date Care Activity Detail Author Start: 07-19-2033 Screening for malign ant neoplasm of colon [facility] Start: 10-23-2024 End: 10-23-2024 Patient encounter procedure 10/23/2024 5:30 PM EDT Procedure Visit [facility] [address] [place] [phone] Pascale Arana NP [address] [place] [id number] [facility] Start: 10-07-2024 Influenza vaccination Influenza Vacc ine (#1) [facility] Comment on above: Postponed from 03/24 (Patient Refused) Start: 10-04-2024 End: 08-06-2025 CBC W Auto Differential panel - Blood CBC and differential Lab Routine B12 deficiency Iron deficiency anemia, unspecified iron deficiency anemia type Expected: 10/04/2024 (Approximate), Expires: 08/06/2025 [facility] Work Phone: Comment on above: Expected: 10/04/2024 (Approximate), Expires: 08/06/2025 Start: 10-04-2024 End: 08-06-2025 Cobalamin (Vitamin B12) [Mass/volume] in Serum or Plasma Vitamin B12 Lab Routine B12 deficiency Iron deficiency anemia, unspecified iron deficiency anemia type Expected: 10/04/2024 (Approximate), Expires: 08/06/2025 [facility] Comment on above: Expected: 10/04/2024 (Approximate), Expires: 08/06/2025 Start: 10-04-2024 End: 08-06-2025 Ferritin [Mass/volume] in Serum or Plasma Ferritin Lab Routine B12 deficiency Iron deficiency anemia, unspecified iron deficiency anemia type Expected: 10/04/2024 (Approximate), Expires: 08/06/2025 [facility] Comment on above: Expected: 10/04/2024 (Approximate), Expires: 08/06/2025 Start: 10-04-2024 End: 08-06-2025 Iron + transferrin + TIBC Iron + transferrin + TIBC Lab Routine B12 deficiency Iron deficiency anemia, unspecified iron deficiency anemia type Expected: 10/04/2024 (Approximate), Expires: 08/06/2025 [facility] Comment on above: Expected: 10/04/2024 (Approximate), Expires: 08/06/2025 Start: 10-02-2024 End: 10-02-2024 Patient encounter procedure [facility] Comment on above: Class 1 obesity due [...] B12 deficiency Expected: 10/02/2024 (Approximate), Expires: 10/02/2025 [facility] Comment on above: Expected: 10/02/2024 (Approximate), Expires: 10/02/2025 Start: 10-02-2024 End: 10-02-2025 Cobalamin (Vitamin B12) [Mass/volume] in Serum or Plasma Vitamin B12 Lab Routine B12 deficiency Expected: 10/02/2024 (Approximate), Expires: 10/02/2025 [facility] Comment on above: Expected: 10/02/2024 (Approximate), Expires: 10/02/2025 Start: 10-02-2024 End: 10-02-2025 Ferritin [Mass/volume] in Serum or Plasma Ferritin Lab Routine Iron deficiency anemia secondary to inadequate dietary iron intake Expected: 10/02/2024 (Approximate), Expires: 10/02/2025 [facility] Comment on above: Expected: 10/02/2024 (Approximate), Expires: 10/02/2025 Start: 10-02-2024 End: 10-02-2025 Iron + transferrin + TIBC Iron + transferrin + TIBC Lab Routine Iron deficiency anemia secondary to inadequate dietary iron intake Expected: 10/02/2024 (Approximate), Expires: 10/02/2025 [facility] Comment on above: Expected: 10/02/2024 (Approximate), Expires: 10/02/2025 Start: 10-02-2024 End: 12-02-2025 MG Breast - bilateral Screening Bilateral screening mammogram Imaging Routine Encounter for screening mammogram for malignant neoplasm of breast Expected: 10/02/2024 (Approximate), Expires: 12/02/2025 [facility] Work Phone: Comment on above: Expected: 10/02/2024 (Approximate), Expires: 12/02/2025 Start: 09-04-2024 End: 09-04-2024 Patient encounter procedure [facility] CWLashaun GAN Comment on above: Arrived Start: 08-12-2024 End: 08-12-2024 Patient encounter procedure 08/12/2024 4:00 PM EST Office Visit [facility] [address] [place] [phone] Pascale Arana NP [address] [place] [phone] Arrived [facility] Comment on above: Arrived Start: 08-12-2024 End: 08-12-2025 SUPERFICIAL WOUND (HTRX) SUPERFICIAL WOUND (HTRX) Lab Routine Cutaneous abscess of abdominal wall Expected: 08/12/2024 (Approximate), Expires: 08/12/2025 [facility] Work Phone: Comment on above: Expected: 08/12/2024 (Approximate), Expires: 08/12/2025 Start: 07-31-2024 End: 07-31-2024 Patient encounter procedure [facility] Comment on above: Arrived Start: 07-31-2024 End: 07-31-2025 Cobalamin (Vitamin B12) [Mass/volume] in Serum or Plasma Vitamin B12 Lab Routine Iron deficiency anemia secondary to inadequate dietary iron intake Expected: 07/31/2024 (Approximate), Expires: 07/31/2025 [facility] Comment on above: Expected: 07/31/2024 (Approximate), [...] 07/10/2024 4:30 PM EST Office Visit [facility] [address] [place] [address] Angel Luis Groves, MANAGER OF ENVIRONMENTAL SERVICES [address] [place] [address] [facility] Start: 06-05-2024 End: 06-05-2024 Patient encounter procedure 06/05/2024 5:30 PM EST Office Visit [facility] [address] [place] [phone] Angel Luis Groves, MANAGER OF ENVIRONMENTAL SERVICES [address] [place] [phone] [facility] Start: 04-10-2024 End: 04-10-2024 Patient encounter procedure [facility] Comment on above: Arrived Start: 03-24-2024 Influenza vaccination Influenza Vacc ine (#1) [facility] Start: 03-12-2024 End: 03-12-2024 Patient encounter procedure 03/12/2024 3:30 PM EDT Office Visit [facility] [address] [place] [address] Angel Luis Groves, MANAGER OF ENVIRONMENTAL SERVICES [address] [place] [phone] Arrived [facility] Comment on above: Arrived Start: 11-13-2023 End: 11-13-2023 Patient encounter procedure 11/13/2023 4:45 PM EDT Office Visit [facility] [address] [place] [phone] Shaikh Main MD [address] [place] [phone] [facility] Start: 03-24-2023 Influenza vaccination Influenza Vacc ine (#1) [facility] Start: 2011 Screening for malign ant neoplasm of breast Mammogram [facility] Start: 2001 Screening for malign ant neoplasm of cervix [facility] Start: 1992 Screening for malign ant neoplasm of cervix Pap Smear [facility] Start: 1971 Screening for malign ant neoplasm of colon [facility] CBC W Auto Different ial panel - Blood CBC and differential Lab Routine Iron deficiency anemia secondary to inadequate dietary iron intake Ordered: 07/31/2024 [facility] Work Phone: Comment on above: Ordered: 07/31/2024 Sjogrens syndrome-A extractable nuclear Ab [Units/volume] in Serum [facility] Sjogrens syndrome-B extractable nuclear Ab [Units/volume] in Serum [facility] Immunizations Immunization Date Immunization Notes Care Provider Fa cility NEGATED: Highlighted row has not occurred!06-07-2023 influenza virus vaccine, unspecified formulation Segun DUARTE General Surgery [place] Payers Date Payer Category Payer Self-pay 2009 Managed Care HMO (unspecified) [id number] 1971 Unknown [id number] 2.16.840.1.250916.3.579.2.647 1971 Unknown [id number] 2.16.84 0.1.345336.3.579.2.593 1971 Unknown [id number] 2.16.84 0.1.299325.3.579.2.593 1971 Unknown [id number] 2.16.84 0.1.534810.3.579.2.593 1971 Unknown [id number] 2.16.84 0.1.723173.3.579.2.593 1971 Unknown [id number] 2.16.84 0.1.836053.3.579.2.593 1971 Unknown [id number] 2.16.84 0.1.293761.3.579.2.593 1971 Unknown [id number] 2.16.84 0.1.209520.3.579.2.593 1971 Unknown [id number] 2.16.84 0.1.195873.3.579.2.593 1971 Unknown [id number] 2.16.84 0.1.248284.3.579.2.593 1971 Unknown [id number] 2.16.840.1.253046.3.579.2.727 1971 Unknown [id number] 2.16.840.1.259967.3.579.2.72 1971 Unknown [id number] 2.16.840.1.508456.3.579.2.727 1971 Unknown [id number] 2.16.840.1.839656.3.579.2.72 1971 Unknown [id number] 2.16.840.1.159782.3.579.2.72 1971 Unknown [id number] 2.16.840.1.174575.3.579.2.125 1971 Unknown [id number] 2.16.840.1.449546.3.579.2.125 1971 Unknown [id number] 2.16.840.1.579761.3.579.2.1258 1971 Unknown [id number] 2.16.840.1.324697.3.579.2.125 1971 Unknown [id number] 2.16.840.1.585409.3.579.2.1258 1971 Unknown [id number] 2.16.840.1.279526.3.579.2.1259 1971 Unknown [id number] 2.16.840.1.095880.3.579.2.1259 1971 Unknown [id number] 2.16.840.1.109587.3.579.2.1259 1971 Unknown [id number] 2.16.840.1.689813.3.579.2.1259 1971 Unknown [id number] 2.16.840.1.372592.3.579.2.9 1971 Unknown [id number] 2.16.840.1.003827.3.579.2.1259 1959 Private Health Insurance [id number] 2.16.840.1.683484.19 Unknown Unknown [id number] 2.16.840.1.594944.3.579.2.531 Social History Date Type Detail Facility Unknown if ever smoked [facility] Other Start: 08-07-2023 End: 04-10-2024 Sex Assigned At [facility] Start: 06-07-2023 End: 03-18-2024 Tobacco smoking [...] Start: 1970 Sex Assigned At Female F [facility] History of tobacco use Passive smoker [facility] Goals Date Patient Goal Desired Activity /State Personal health goal Functional Status Date Assessment Result Facility 03-18-2024 Functional Status N/A [facility] 06-07-2023 Functional Status N/A [facility] Clinical Notes 08-30-2021 to 10-02-2024 Pascale [...] of the risks of continued smoking: stroke, NV, all forms of cancer, lung disease, and [...] of the risks of continued smoking: stroke, NV, all forms of cancer, lung disease, and [...] weight 200 lbs documented in this encounter [facility] 10-02-2024 Instructions Pascale Arana NP - 10/02/2024 5:00 PM EDT Check labs Mammogram: will send to [facility] Schedule PAP documented in this encounter [facility] 09-04-2024 Instructions Angel Luis Groves NP - 09/04/2024 5:00 PM EST Keep up the good work!!! documented in this encounter [facility] 08-14-2024 Telephone encounter Note Patient said her dose was increased and now she is out of this medication. Can you please refill. ANAYELI [facility] 08-14-2024 Miscellaneous Notes Patient said her dose was increased and now she is out of this medication. Can you please refill. ANAYELI documented in this encounter [facility] 08-12-2024 History of Present illness Narrative [...] of the risks of continued smoking: stroke, NV, all forms of cancer, lung disease, and [...] of the risks of continued smoking: stroke, NV, all forms of cancer, lung disease, and [...] SUPERFICIAL WOUND (HTRX) documented in this encounter [facility] 08-12-2024 Instructions Pascale Arana NP - 08/12/2024 4:00 PM EST Z pack, finish this Fluids, rest Cont layla and we will add flonase nasal spray Warm compress to affected area, will treat based on culture report documented in this encounter [facility] 07-31-2024 History of Present illness Narrative [...] 37.5 MG tablet documented in this encounter [facility] 07-31-2024 Instructions Angel Luis Groves NP - 07/31/2024 3:00 PM EST Notify office with any symptoms of chest pain, dyspnea, heart palpitations, or any anxiety symptoms. F/U in 4 weeks to document weight loss. Increase physical activity as tolerated, and lower caloric intake to 1600 calories daily if no contraindications. documented in this encounter [facility] 07-24-2024 History of Present illness Narrative Images [...] into month two. Pt meets qualifications of [facility] 4731-05-27 for weight loss. BMI>30 or >27 [...] This Visit Bipolar disorder with severe depression (CMS/[facility]) Relevant Medications citalopram (CeleXA) 40 MG tablet [...] into month two. Pt meets qualifications of [facility] 4731-05-27 for weight loss. BMI>30 or >27 [...] into month two. Pt meets qualifications of [facility] 4731-05-27 for weight loss. BMI>30 or >27 with comorbid conditions. Blood pressure WNL. Notify office with any symptoms of chest pain, dyspnea, heart palpitations, or any anxiety symptoms. F/U in 4 weeks to document weight loss. Increase physical activity as tolerated, and lower caloric intake to 1600 calories daily if no contraindications. documented in this encounter [facility] 06-03-2024 Telephone encounter Note Pt takes the 60mg in morning and 30 mg in the afternoon, so both. [facility] 06-03-2024 Miscellaneous Notes Pt takes the 60mg in morning and 30 mg in the afternoon, so both. Patient is asking for a 90 day supply. Patient said 60 mg were denied. documented in this encounter [facility] 06-03-2024 Telephone encounter Note Patient is asking for a 90 day supply. Patient said 60 mg were denied. [facility] 04-10-2024 History of Present illness Narrative [...] has since resolved. documented in this encounter [facility] 03-13-2024 History of Present illness Narrative [...] SEE GUDELIA GONZALEZ ON 03/18 AT 1500. ). HPI IS here today for one week follow-up for constipation. 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 Went on vacation to in [facility] in [place] for the weekend and had X3 BM's. Denies blood in stool. States she has been stressed recentlty and feels being away heloped her relax and she was finally able to pass BM. Sees GI in [place] on Sunday 03/18 @ 3pm. Still has [...] GI next week. documented in this encounter [facility] 03-12-2024 Instructions Angel Luis Groves NP - 03/12/2024 3:30 PM EDT Referral sent to Rheumatology- Dr. Muller in [place], [place]- they will call you! Have mammogram completed. Call if you need anything! documented in this encounter [facility] 06-07-2023 Note Chief Complaint consultation for [...] fibromyalgia, referred for severe anemia, admitted to [facility] in January with hb of 5; [...] Cap-DR, 30 mg= (more content not included)... [facility] Comment on above: Result Comment: Elec tronically Signed By: AMIE WELLER, Segun R\.br\Date and Time Signed: 06/07/23 17:17 EST 06-07-2023 Evaluation + Plan note Diagnostic Tests PendingIron Level 06/07/23Ferritin 06/07/23Vitamin B12 Level 06/07/23 General [facility] 04-07-2023 Note Cardiology Clinic No te Subjective [...] -Resolved, likely exacerbated (more content not included)... [facility] 04-07-2023 Note Patient here for [...] All other systems reviewed and are negative. [facility] 02-08-2023 Note Cardiovascular Medic [facility] SUBJECTIVE Chief Complaint Patient presents [...] about 6 weeks (around 03/22/2023). Carol Berg APRN-[facility] Cardiovascular Medicine [facility] 05-31-2022 Note PROCEDURE: XR FOOT [...] authenticated by: TAMIKO NETTLES Date: 2022-05-31 20:30 [facility] 05-11-2022 Note PROCEDURE: XR FOOT L T [...] authenticated by: ELLIOT ALSTON Date: 2022-05-11 16:14 [facility] 04-19-2022 Note PROCEDURE: XR FOOT L [...] authenticated by: TAMIKO NETTLES Date: 2022-04-19 18:16 [facility] 03-30-2022 Note PROCEDURE: XR FOOT L T [...] NETTLES Date: 2022-03-30 06:41 [facility] 03-11-2022 Note PROCEDURE: XR FOOT L [...] authenticated by: ELLIOT ALSTON Date: 2022-03-11 08:26 [facility] 03-11-2022 Note PROCEDURE: XR FOOT L T 2V HISTORY: Pain COMPARISON: XR foot left 02/09/2022 FINDINGS: BONES:Multiple intraoperative images demonstrate mechanical fusion of the second and third tarsal-metatarsal joints. SOFT TISSUES:Expected intraoperative findings. EFFUSION:None visible. OTHER: Negative. IMPRESSION: 1. Mechanical fusion of second and third tarsal-metatarsal joints. Electronically authenticated by: ELLIOT ALSTON Date: 2022-03-11 07:55 [facility] 02-10-2022 Note PROCEDURE: XR FOOT L T MIN 3 VIEWS COMPARISON: 12/15/2020 HISTORY: Pain FINDINGS: BONES:No acute fracture or dislocation. Stable moderate degenerative changes most significant at the tarsometatarsal joints. Moderate plantar enthesopathic spurring of the calcaneus SOFT TISSUES:Negative. No visible soft tissue swelling. EFFUSION:None visible. OTHER: Negative. IMPRESSION: Stable moderate degenerative changes Electronically authenticated by: TAMIKO NETTLES Date: 2022-02-10 07:37 [facility] 08-30-2021 Evaluation note Encounter Date Diagnosis Assessment [...] Patient care instructions given in writting by [facility] At Home document [facility] Other Evaluation note* Diagnosis Bipolar disorder with severe depression (CMS/HCC) [facility] Work Phone: Evaluation note* Diagnosis Breast [...] Primary Screening for diabetes mellitus Seizure-like activity ([facility]/HCC) Fluid level behind tympanic membrane of both [...] Primary Screening for diabetes mellitus Seizure-like activity ([facility]/HCC) Fluid level behind tympanic membrane of both [...] in full remission, most recent episode depressed ([facility]/HCC) Psychophysiological insomnia Persistent disorder of initiating or [...] gastric bypass Bipolar disorder with severe depression ([facility]) Encounter for screening mammogram for breast cancer- Primary Screening for diabetes mellitus Seizure-like activity ([facility]) Fluid level behind tympanic membrane [...] 33.0-33.9,adult- Primary Bipolar disorder with severe depression ([facility]/HCC) Fibromyalgia Unspecified myalgia and myositis Gastro-esophageal reflux [...] current episode depressed, severe, without psychotic features ([facility]/HCC) Psychophysiological insomnia Persistent disorder of initiating or maintaining sleep Fibromyalgia Unspecified myalgia and myositis Iron deficiency anemia secondary to inadequate dietary iron intake B12 deficiency B12 deficiency- Primary Bipolar disorder, current episode depressed, severe, without psychotic features ([facility]/HCC) Psychophysiological insomnia Persistent disorder of initiating or [...] gastric bypass Bipolar disorder with severe depression ([facility]) Encounter for screening mammogram for breast cancer- Primary Screening for diabetes mellitus Seizure-like activity ([facility]) Fluid level behind tympanic membrane [...] 33.0-33.9,adult- Primary Bipolar disorder with severe depression ([facility]) Fibromyalgia Unspecified myalgia and myositis [...] Date Medical History anxiety Medical History GERD [facility] Other Hospital course Narrative No data available for this section General Surgery [facility] Discharge instructions No data available for this section General Surgery [facility] Progress note No data available for this section General Surgery [place] Reason for referral (narrative)* Consultation (Routine) - Pending Review Specialty Diagnoses / Procedures Referred By Carlos white Referred To Contact Rheumatology Diagnoses Fibromyalgia Procedures [place] OFFICE/OUTPATIENT NEW HIGH MDM 60 MINUTES Angel Luis Groves NP [address] [place] [phone] Tyson Collazo MD [address] [place] [address] Referral ID Status Reason Start Date Expiration Date Visits Requested Visits Authorized [id number] Pending Review Specialty Services Required 03/13/2024 09/09/2024 1 1 Scheduling Instructions Please include OV note from today And labs from 07/28/2023 [facility] Summary Purpose Family History No Family History Records Found Relationship Condition Age at Onset Recorded Date/T arlet father Diabetes mellitus Unknown History of stroke Unknown Hypertension Unknown Heart disease Unknown Unknown mother Unknown Diabetes mellitus Unknown Advance Directives No Advanced Directives Records Found Advance Directive Response Recorded Date/ Time Advance Directives No March 1:42pm Additional Source Comments INFORMATION SOURCE (unrecogn ized section and content) DATE CREATED AUTHOR 11/16/2018 [facility] DATE CREATED AUTHOR AUTHOR'S ORGANIZ ATION 06/05/2022 [facility] DATE CREATED AUTHOR AUTHOR'S ORGANIZ ATION 04/09/2023 [facility] DATE CREATED AUTHOR AUTHOR'S ORGANIZ ATION 03/20/2024 [place] [facility] DATE CREATED AUTHOR AUTHOR'S ORGANIZ ATION 04/29/2024 [facility] DATE CREATED AUTHOR AUTHOR'S ORGANIZ ATION 10/05/2024 [facility] d[facility] Specialists EPIC REASON FOR VISIT (unrecogniz [...] team informatio n (unrecognized section and content) [employer] Relationship Specialty Start Date End Date Shaikh Main MD PCP - General Internal Medicine 04/20/23 Team Status: Active Member Role Status Dates Conrad Ahn DO Attending Provider Active Sta rt: February 26, 2024 Team Status: Inactive Member Role Status Dates Tyson Collazo MD Attending Provider Active St art: April 18, 2024 End: April 18, 2024 [employer] Relationship Specialty Start Date End Date Molina De Anda MD [address] [place] [address] PCP - General Family Medicine 02/21/24 Angel Luis Groves NP [address] [place] [address] Nurse Practitioner Family Medicine 02/21/24 [employer] Relationship Specialty Start Date End Date Molina De Anda MD [address] [place] [phone] PCP - General Family Medicine 02/21/24 Angel Luis Groves NP [address] [place] [address] Nurse Practitioner Family Medicine 02/21/24 [employer] Relationship Specialty Start Date End Date Molina De Anda MD [address] [place] [address] PCP - General Family Medicine 02/21/24 Angel Luis Groves NP [address] [place] [address] Nurse Practitioner Family Medicine 02/21/24 [employer] Relationship Specialty Start Date End Date Molina De Anda MD [address] [place] [address] PCP - General Family Medicine 02/21/24 Angel Luis Groves NP [address] [place] [address] Nurse Practitioner Family Medicine 02/21/24 [employer] Relationship Specialty Start Date End Date Molina De Anda MD [address] [place] [address] PCP - General Family Medicine 02/21/24 Angel Luis Groves NP [address] [place] [address] Nurse Practitioner Family Medicine 02/21/24 [employer] Relationship Specialty Start Date End Date Molina De Anda MD [address] [place] [address] PCP - General Family Medicine 02/21/24 Angel Luis Groves NP [address] [place] [address] Nurse Practitioner Family Medicine 02/21/24 [employer] Relationship Specialty Start Date End Date Molina De Anda MD [address] [place] [address] PCP - General Family Medicine 02/21/24 Angel Luis Groves NP [address] [place] [address] Nurse Practitioner Family Medicine 02/21/24 [employer] Relationship Specialty Start Date End Date Molina De Anda MD [address] [place] [address] PCP - General Family Medicine 02/21/24 Angel Luis Groves NP [address] [place] [address] Nurse Practitioner Family Medicine 02/21/24 [employer] Relationship Specialty Start Date End Date Molina De Anda MD [address] [place] [address] PCP - General Family Medicine 02/21/24 Angel Luis Groves NP [address] [place] [address] Nurse Practitioner Family Medicine 02/21/24 [employer] Relationship Specialty Start Date End Date Molina De Anda MD [address] [place] [address] PCP - General Family Medicine 02/21/24 Angel Luis Groves NP [address] [place] [address] Nurse Practitioner Family Medicine 02/21/24 [employer] Relationship Specialty Start Date End Date Molina De Anda MD [address] [place] [address] PCP - General Family Medicine 02/21/24 Angel Luis Groves NP [address] [place] [address] Nurse Practitioner Family Medicine 02/21/24 [employer] Relationship Specialty Start Date End Date Molina De Anda MD [address] [place] [address] PCP - General Family Medicine 02/21/24 Angel Luis Groves NP [address] [place] [address] Nurse Practitioner Family Medicine 02/21/24 [employer] Relationship Specialty Start Date End Date Molina De Anda MD [address] [place] [address] PCP - General Family Medicine 02/21/24 Angel Luis Groves NP [address] [place] [address] Nurse Practitioner Family Medicine 02/21/24 [employer] Relationship Specialty Start Date End Date Molina De Anda MD [address] [place] [address] PCP - General Family Medicine 02/21/24 Angel Luis Groves NP [address] [place] [address] Nurse Practitioner Family Medicine 02/21/24 [employer] Relationship Specialty Start Date End Date Molina De Anda MD [address] [place] [address] PCP - General Family Medicine 02/21/24 Angel Luis Groves NP [address] [place] [address] Nurse Practitioner Family Medicine 02/21/24 [employer] Relationship Specialty Start Date End Date Molina De Anda MD [address] [place] [address] PCP - General Family Medicine 02/21/24 Angel Luis Groves NP [address] [place] [address] Nurse Practitioner Family Medicine 02/21/24 [employer] Relationship Specialty Start Date End Date Molina De Anda MD [address] [place] [address] PCP - General Family Medicine 02/21/24 Angel Luis Groves NP [address] [place] [address] Nurse Practitioner Family Medicine 02/21/24 [employer] Relationship Specialty Start Date End Date Molina De Anda MD [address] [place] [address] PCP - General Family Medicine 02/21/24 Angel Luis Groves NP [address] [place] [address] Nurse Practitioner Family Medicine 02/21/24 [employer] Relationship Specialty Start Date End Date Molina De Anda MD [address] [place] [address] PCP - General Family Medicine 02/21/24 Angel Luis Groves NP [address] [place] [address] Nurse Practitioner Family Medicine 02/21/24 [employer] Relationship Specialty Start Date End Date Molina De Anda MD [address] [place] [address] PCP - General Family Medicine 02/21/24 Angel Luis Groves NP [address] [place] [address] Nurse Practitioner Family Medicine 02/21/24 [employer] Relationship Specialty Start Date End Date Molina De Anda MD [address] [place] [address] PCP - General Family Medicine 02/21/24 Angel Luis Groves NP [address] [place] [address] Nurse Practitioner Family Medicine 02/21/24 [employer] Relationship Specialty Start Date End Date Molina De Anda MD [address] [place] [address] PCP - General Family Medicine 02/21/24 Angel Luis Groves NP [address] [place] [address] Nurse Practitioner Family [facility] 02/21/24 [employer] Relationship Specialty Start Date End Date Molnia De Anda MD [address] [place] [address] PCP - General Family Medicine 02/21/24 Angel Luis Groves NP [address] [place] [address] Nurse Practitioner Family [facility] 02/21/24 Goals (unrecognized section and content) Goals [...] BE BASED ON THE PRIMARY CLINICAL RECORDS. [facility] [employer] [facility]. provides no warranty or guarantee of the accuracy or completeness of information in this document.
== END 2024-10-23 08:02 | disposition home or self-care (01) ==
LOC: MAMMO 08:01
PROVIDERS: PCP Nurse Practitioner; Visit Provider Nurse Practitioner
DX: Z12.31 Encounter for screening mammogram for malignant neoplasm of breast (principal); Z80.3 Family history of malignant neoplasm of breast
CPT/HCPCS: 77063; 77067

== ENCOUNTER 2024-11-20 20:36 | Outpatient (REF) | payer OTHER, SELFPAY ==
[2024-11-26 20:08] LABS: Age Gdln ACOG Testing Note (.); HPV Aptima Positive (Negative); HPV Genotype 16 Negative (Negative); HPV Genotype 18,45 Negative (Negative); IGP, Aptima HPV, rfx 16/18,45 Note (.)
== END 2024-11-20 20:37 | disposition home or self-care (01) ==
LOC: LAB 20:36
PROVIDERS: PCP Nurse Practitioner; Visit Provider Nurse Practitioner
DX: Z12.4 Encounter for screening for malignant neoplasm of cervix (principal)
CPT/HCPCS: 87624; 87625; 88175

== ENCOUNTER 2025-01-14 12:39 | Outpatient (OUT) | payer OTHER, SELFPAY ==
--- OUTSIDE RECORDS SUMMARY | 2019-11-19 07:15 | XMS_ITS | Continuity of Care Document ---
Author Organization [facility] Address [address] [facility] [place] [address] Phone Care Team Providers Care Department Head Name Role Phone Bernardo WELLER, Mathew Early Unavailable Procedures Procedure Date POSTOP FOLLOW-UP VISIT POSTOP FOLLOW-UP VISIT Gastric Bypass LAP GASTRIC BYPASS/YOUSUF-EN-Y OFFICE/OUTPATIENT VISIT, EST OFFICE/OUTPATIENT VISIT, NEW Advance Directives Directive Yes / No Effective Date File Name No Information Encounters Encounter Description Practice Location Reason(s) For Visit Diagnoses Date Provider Providers Copied on Encounter [place] [employer] [facility], [address] [place] [address], [id number], tel:[phone] [facility] No Information Bernardo Carmona. [address], [id number], [place]. tel:[phone] Referring Provider: Mathew Boudreaux, [address], [address]. tel:[phone] [facility], [address] [place] [address], [id number], tel:[phone] [facility] No Information Laci Londono. [address] [facility] [address], [place], [id number], [place]. tel:[phone] Referring Provider: Spring Aguero, [address] [facility] [address], [place], [address]. tel:[phone] [place] [employer] [facility], [address] [place] [address] [address], [place], [place], [address], [place] tel:[phone] [facility] IP No Information Laci Londono. [address], [place], [place], [id number], [place]. tel:[phone] Referring Provider: Spring Aguero, [address] [facility] [address], [place], [address]. tel:[phone] [place] [employer] [facility], [address] [place] [address] [address], [place], [place], [address], [place] tel:[phone] [facility] IP No Information Bernardo Carmona. [address] [facility] [address], [place], [place], [id number], [place]. tel:[phone] Referring Provider: Mathew Boudreaux, [address] [facility] [address], [place], [address]. tel:[phone] OFFICE/OUTPATI ENT VISIT, [facility] [employer] [facility], [address] [facility] [address], [place], [place], [id number], [place] tel:[phone] [facility] No Information Bernardo Carmona. [address] [facility] [address], [place], [place], [id number], [place]. tel:[phone] Referring Provider: Mathew Boudreaux, [address] [facility] [address], [place], [address]. tel:[phone] OFFICE/OUTPATI ENT VISIT, [facility] [employer] [facility], [address] [place] [address] [address], [place], [place], [id number], [place] tel:[phone] [facility] No Information Bernardo Carmona. [address] [facility] [address], [place], [place], [address], [place]. tel:[phone] Referring Provider: Mathew Boudreaux, [address] [facility] [address], [place], [address]. tel:[phone] Family History Family Member Type Diagnosis Age At Onset No Information Payers Payer name Insurance type Covered green party ID Bijal elmore(anastasiia Ruiz [id number] Social History Type Description Quantity Date Captured [...]
--- OUTSIDE RECORDS SUMMARY | 2024-09-04 11:15 | XMS_ITS ---
Author Organization [facility] in [place] Address [address] [place] [address] Care Team Providers Care Nurse Ob Name Role Phone None, Unknown or Primary Care Provider Unavailab Mathew Lee Unavailable [phone] Allergies Allergen (clinical drug ingredient) Drug/Non Drug [...] Problem Status W/U Status Risk Notes Problem [id number] Primary osteoarthrit is, left ankle and foot (M19.072) Active confirmed Vital Signs Heart Rate 84 /min 09/04/2024 Respiratory Rate 16 /min 09/04/2024 Oximetry 98 % 09/04/2024 Encounters Encounter Location Date Provider Diagnosis [facility] (PODIATRY) [address] [place] [address] [place] [address] 09/04/2024 Mathew Hoff Pain due to internal [...] * Talia RUTHERFORDDOB:[birth year] (54 yo F)Acc No.[id number]:09/04/2024 Follow Up Patient: Talia FREED Provider: Miguel Hoff DPM, MS :1970 A ge:54 Y S ex:Female Date:09/04/2024 Address:[address] [place], [id number] Pcp:Unknown or None Check In:03:07 PM ESTCheck [...] M usculoskeletal: Bone/Joint Symptoms d enies. C fci Pain d enies.?Leg cramps d enies. N [...] 09/04/2024 Generated for Taina marina/Nhi/Josiasitting on: 0 01/14/2025 12:44 PM EDT History and Physical Notes * [...]
--- OUTSIDE RECORDS SUMMARY | 2024-09-04 11:53 | XMS_ITS ---
Author Organization [facility] in [place] Address [address] [place] [address] Care Team Providers Care Gas Meter Checker Name Role Phone None, Unknown or Primary Care Provider Unavailab Mathew Lee [phone] REASON FOR VISIT meds Medications Medication SIG (Take, Route, Fr equency, Duration) Notes Start Date End Date Status Meloxicam 15 MG 1 tablet Orally Once a day for 30 days 09/04/2024 Active Encounters Encounter Location Date Provider Diagnosis [facility] (POD[facility]AT[facility]) [address] [place] [address] [place] [address] 09/04/2024 Mathew Hoff Plan Of Treatment Medication Medication Name Sig Start Date Stop Date Notes Meloxicam 15 MG 1 tablet Orally Once a day for 30 days 06/2025 Progress Notes * Talia MERCADODOB:[birth year] (54 yo F)Acc No.[id number]:09/04/2024 Patient: Talia FREED :1970 A ge:54 Y S ex:Female Address:[address] [place], [address] * Refills Start Meloxicam Tablet, 15 MG, Orally, 30, 1 tablet, Once a day, 30 days, Refills=3 * true * Date: Generated for Printi ng/Faxing/eTransmitting on: 0 01/14/2025 12:44 PM EDT
--- OUTSIDE RECORDS SUMMARY | 2024-09-18 11:30 | XMS_ITS ---
Author Organization The [facility] in [place] Address [address] [place] [address] Care Team Providers Care Options Advisor Name Role Phone None, Unknown or Primary Care Provider Unavailab Mathew Lee Unavailable [phone] Allergies Allergen (clinical drug ingredient) Drug/Non Drug [...] Encounter Location Date Provider Diagnosis [facility] [place] (PODIATRY) [address] [place] [address] [place] [address] 09/18/2024 Mathew Hfof 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.0 ; [...] Juan J RUTHERFORD:[birth year] (54 yo F)Acc No.[id number]:09/18/2024 Follow Up Patient: Lian FREEDyl Provider: Miguel Hoff DPM, MS :1970 A ge:54 Y S ex:Female Date:09/18/2024 Address:[address] [place], [id number] Pcp:Unknown or None Check In:03:18 PM ESTCheck [...] 09/18/2024 Generated for Taina marina/Nhi/Josiasitting on: 0 01/14/2025 12:43 PM EDT History and Physical Notes * [...]
--- OUTSIDE RECORDS SUMMARY | 2025-01-06 16:30 | XMS_ITS | Encounter Summary ---
Author Organization [facility] Address [address] [place] [address] Care Team Providers Care Solar Energy System Installer Name Role Phone Molina De Anda MD Primary Care Provider [phone] Valerie Groves NP Unavailable [phone] Reason for Referral * Behavioral Health - Outpatient (Stat) - Authorized Specialty Diagnoses / Procedures Referred By Contepifanio t Referred To Contact Behavioral Health Diagnoses Bipolar disorder with severe depression (HCC) Procedures ID OFFICE/OUTPATIENT NEW HIGH MDM 60 MINUTES Pascale Arana NP [address] [place] [address] Phone: tel: fax: Karime Dias, [facility] [address] [address] Phone: tel: fax: Referral ID Status Reason Start Date Expiration Date Visits Requested Visits Authorized [id number] Authorized Specialty Services Required 01/06/2025 07/05/2025 1 1 Scheduling Instructions Will need appt for both counseling and med management Reason for Visit * Reason Comments Weight Check Encounter Details Date Type Department Care Team ([facility] Contact Info) Description 01/06/2025 4:30 PM EDT Office Visit [facility] [address] [place] [id number] Pascale Arana NP [address] [place] [address] Bipolar disorder with severe depression (HCC) (Primary [...] often do you attend chur ch or church services? Never 08/07/2023 Do you belong to any clubs o r organizations such as uatsdin groups, unions, fraternal or athletic groups, or [...] Recorded Patient Health Questionnaire-2 Score 0 04/10/2024 [facility] ional [facility] - Occupational Stress [...] place to sleep or slept in a detention (including now)? No 08/07/2023 Comments Unknown Sex [...] - 01/06/2025 6:09 PM EDTAssociated Problem(s): Stress See bipolar entry * Pascale Arana NP [...] of the risks of continued smoking: stroke, [place], all forms of cancer, lung disease, and [...] of the risks of continued smoking: stroke, [place], all forms of cancer, lung disease, and [...] 01/22/2025 9:00 AM EDT Office Visit [facility] [address] [facility] [address] [place] [address] Karime Dias [facility] [address] [facility] [address] [place] [address] 02/05/2025 3:20 PM EDT Office Visit [facility] [address] [place] [address] Pascale Arana NP [address] [place] [address] Scheduled Referrals Name Type Priority Associated Diagnoses [...] documented as of this encounter Care Teams Solar Energy System Installer Relationship Specialty Start Date End Date Molina De Anda MD [address] [place] [address] PCP - General Family Medicine 02/21/24 Valerie Groves NP [address] [place] [address] Nurse Practitioner Family Medicine 02/21/24 documented as of this encounter
--- OUTSIDE RECORDS SUMMARY | 2025-01-14 12:44 | XMS_ITS | Clinical Summary ---
Author Organization [facility] Address [address] [place] [address] Care Team Providers Care Nurses Superintendent Name Role Phone Molina De Anda MD Primary Care Provider [phone] Valerie Groves MAIL TECHNICIAN Unavailable [phone] Allergies Active Allergy Reactions Criticality Noted Date Comments Penicillin G Unknown 06/30/2023 Penicillins 07/04/2023 Medications meloxicam (Mobic) 15 MG tablet Take 15 mg by mouth Daily 10/03/19 25 Active fexofenadine (Layla Allergy) 180 MG tabletIndicati ons:Seasonal allergies Take 1 tablet (180 mg) by mouth Daily 30 tablet 5 10/03/19 25 Active fluticasone (Flonase) 50 MCG/ACT nasal sprayIndicatio ns:Environment al and seasonal allergies Administer 2 sprays into each nostril Daily Shake gently. Before first use, prime pump. After use, clean tip and replace cap. 16 g 5 11/19/19 25 Active gabapentin (Neurontin) 300 MG capsuleIndicat ions:Fibromyal elba Take 1 capsule (300 mg) by mouth in the morning and 1 capsule (300 mg) in the evening and 1 capsule (300 mg) before bedtime. 90 capsule 5 11/19/19 25 Active tolterodine LA (Detrol LA) 4 MG 24 hr capsuleIndicat ions:Overactiv e bladder due to prolapse of female genital organ Take 1 capsule (4 mg) by mouth Daily 90 capsule 1 11/19/19 25 025 Active DULoxetine (Cymbalta) [address] capsuleIndicat ions:Fibromyal elba Take 1 capsule (60 mg) by mouth Daily 90 capsule 1 11/20/19 25 025 Active DULoxetine (Cymbalta) [address] capsuleIndicat ions:Fibromyal elba Take 1 capsule (30 mg) by mouth Daily 90 capsule 1 11/20/19 25 025 Active zolpidem (Ambien) 10 MG tabletIndicati ons:Psychophys iological insomnia Take 1 tablet (10 mg) by mouth as needed at bedtime for sleep 30 tablet 2 11/19/19 25 Active pantoprazole (ProtoNix) 40 MG EC tabletIndicati ons:Gastroesop hageal reflux disease, unspecified whether esophagitis present Take 1 tablet (40 mg) by mouth Daily Do not crush, chew, or split. 90 tablet 11/21/19 25 025 Active albuterol HFA 90 mcg/act inhalerIndicat ions:URTI (acute upper respiratory infection),Non -recurrent acute suppurative otitis media of both ears without spontaneous rupture of tympanic membranes Inhale 2 puffs every 4 (four) hours if needed for wheezing 18 g 12/21/19 25 025 Active lamoTRIgine (LaMICtal) 25 MG tabletIndicati ons:Bipolar disorder with severe depression (HCC) 1 pill at bedtime for 2 weeks, then increase to 1 pill twice a day 60 tablet 01/07/20 25 Active albuterol HFA 90 mcg/act inhalerIndicat ions:URTI (acute upper respiratory infection),Non -recurrent acute suppurative otitis media of both ears without spontaneous rupture of tympanic membranes Inhale 2 puffs every 4 (four) hours if needed for wheezing 8.5 g 11/19/19 25 025 Discontinued citalopram (CeleXA) 40 MG tabletIndicati ons:Bipolar disorder with severe depression (HCC) Take 1 tablet (40 mg) by mouth in the morning. 90 tablet 1 11/21/19 25 025 Discontinued( erapy completed) phentermine (Adipex-P) 37.5 MG tabletIndicati ons:BMI 32.0-32.9,adul t,Class 1 obesity due to excess calories without serious comorbidity in adult, unspecified BMI Take 1 tablet (37.5 mg) by mouth in the morning. Take before meals. 30 tablet 11/21/19 025 Discontinued(Th erapy completed) lansoprazole (Prevacid) [address] capsule Take 15 mg by mouth in the morning. Take before meals. 12/22/19 25 025 Discontinued(Th erapy completed) lamoTRIgine (LaMICtal) 25 MG tablet Take by mouth 025 Discontinued(Re order) Active Problems Problem Noted Date Diagnosed Date Abnormal Papanicolaou smear of cervix with positive human papilloma virus (HPV) test 11/27/2024 Overview (11/27/2024): Pap smear 11/15 Hot flashes due to menopause 11/20/2024 Assessment & Plan (11/20/2024 4:37 PM EDT): Discussed insurance concern over dose of celexa, she takes for hot flashes she is willing to trial a decrease in dose to 20mg and will cut her current pill in half Well woman exam with routine gynecological exam 10/23/2024 Assessment & Plan (11/20/2024 4:32 PM EDT): Thin prep: fu as per pap indications Monthly BSE Weight bearing exercise as well BMI 32.0-32.9,adult 10/23/2024 Encounter for screening mamm ogram for malignant neoplasm of breast 10/02/2024 Overactive bladder due to prolapse of female gen ital organ 10/02/2024 Headache, menstrual migraine, with status migrai nosus 08/12/2024 Malaise and fatigue 08/12/2024 Problem related to unspecified psychosocial circ umstances 08/12/2024 Stress 08/12/2024 Assessment & Plan (01/06/2025 6:09 PM EDT): See bipolar entry Detrusor muscle hypertonia 08/12/2024 Class 1 obesity due to exces s calories without serious comorbidity in adult 08/12/2024 Assessment & Plan (01/06/2025 7:38 AM EDT): Discussed with patient their BMI (actual, verses [...] be month #6 Starting weight was 206 Assessment & Plan (11/20/2024 4:30 PM EDT): Discussed with patient their BMI (actual, verses [...] [facility] reviewed Adipex: this will be month #5 Starting weight was 206 Assessment & Plan (10/23/2024 6:14 PM EDT): Discussed with patient their BMI (actual, verses [...] [facility] reviewed Adipex: this will be month #4 Starting weight was 206 Assessment & Plan (10/02/2024 7:48 AM EDT): Discussed with patient their BMI (actual, verses recommended). We have also discussed lifestyle modifications: attempts to perform physical activity as chronic conditions allow, also to monitor dietary intake: increasing protein/fruits/veggies and lowering carb intake (unless contraindicated). Limit sodas, juices, and sugary drinks. Pt meets qualifications of [facility] 4731-05-27 for weight loss. BMI>30 or >27 with comorbid conditions. Notify office with any symptoms of chest pain, dyspnea, heart palpitations, or any anxiety symptoms. F/U in 4 weeks to document weight loss. Increase physical activity as tolerated, and lower caloric intake to 1600 calories daily if no contraindications OARRS reviewed Started on adipex in 09/17: starting weight 200 lbs Assessment & Plan (08/12/2024 4:26 PM EST): Discussed with patient their BMI (actual, verses recommended). We have also discussed lifestyle modifications: attempts to perform physical activity as chronic conditions allow, also to monitor dietary intake: increasing protein/fruits/veggies and lowering carb intake (unless contraindicated). Limit sodas, juices, and sugary drinks. Also discussed oral medications that can be utilized for weight loss, as well as surgical options for weight loss. Environmental and seasonal allergies 08/12/2024 Assessment & Plan (08/12/2024 4:42 PM EST): Cont layla, add flonase History of GI bleed 03/06/2024 LUQ abdominal pain 03/06/2024 Constipation 02/28/2024 Assessment & Plan (04/10/2024 6:44 PM EDT): aw GI- no new orders or imaging. Pt states she has now having regular BM's at least once per day. Abdominal pain has since resolved. Assessment & Plan (03/13/2024 5:35 PM EDT): Has had 3 BM's. Continue taking Miralax as needed. Follow up with GI next week. Assessment & Plan (03/06/2024 5:02 PM EDT): Medium sized BM X1 since last week Milk of Mag causes abdominal pain-discontinue Will order Lactulose BID PRN Additional referral sent to GI- Please try to get in ELISA. If unable call office. Will send for another referral to elsewhere. Assessment & Plan (02/28/2024 5:47 PM EDT): Start Milk of Magnesia Twice daily Until you have a BM Start taking Miralax daily- continue AFTER BM. Referral sent to GI Seizure-like activity 01/22/2024 Assessment & Plan (01/22/2024 5:28 PM EDT): New, 4 episodes in past 10 days. No aggravating factors Sudden onset feeling of restlessness, diaphoresis along with UE tremors, associated confusion that lasts after that event subsides/concludes. Stop Wellbutrin as associated with increased risk of seizure. Refer to Neurology. Nicotine dependence 11/13/2023 Assessment & Plan (01/06/2025 7:38 AM EDT): The patient has been advised of the risks of continued smoking: stroke, [place], all forms of cancer, lung disease, and . Options for quitting smoking include: cold turkey, hypnosis, acupuncture, nicotine replacement meds (gum, lozenges, and patches), Buproprion, and Varenicline. At this time pt is encouraged to evaluate their goals for wanting to quit smoking, and reach out to provider when ready to start this process Assessment & Plan (10/23/2024 7:40 AM EDT): The patient has been advised of the risks of continued smoking: stroke, [place], all forms of cancer, lung disease, and . Options for quitting smoking include: cold turkey, hypnosis, acupuncture, nicotine replacement meds (gum, lozenges, and patches), Buproprion, and Varenicline. At this time pt is encouraged to evaluate their goals for wanting to quit smoking, and reach out to provider when ready to start this process Assessment & Plan (10/02/2024 7:49 AM EDT): The patient has been advised of the risks of continued smoking: stroke, [place], all forms of cancer, lung disease, and . Options for quitting smoking include: cold turkey, hypnosis, acupuncture, nicotine replacement meds (gum, lozenges, and patches), Buproprion, and Varenicline. At this time pt is encouraged to evaluate their goals for wanting to quit smoking, and reach out to provider when ready to start this process Assessment & Plan (08/12/2024 4:25 PM EST): The patient has been advised of the risks of continued smoking: stroke, [place], all forms of cancer, lung disease, and . Options for quitting smoking include: cold turkey, hypnosis, acupuncture, nicotine replacement meds (gum, lozenges, and patches), Buproprion, and Varenicline. At this time pt is encouraged to evaluate their goals for wanting to quit smoking, and reach out to provider when ready to start this process Antibiotic-induced yeast infection 08/14/2023 Assessment & Plan (08/15/2023 12:15 AM EST): Will order Fluconazola in case she develops abx induced yeast infection History of gastric bypass 08/04/2023 Assessment & Plan (11/13/2023 5:18 PM EDT): On B12 injection and required IV iron. Monitor Iron deficiency anemia 08/04/2023 Assessment & Plan (01/06/2025 6:10 PM EDT): Never got a call about iron infusion Assessment & Plan (11/20/2024 4:31 PM EDT): Is prescribed ferrous sulfate, has not been taking this cannot tolerate this Has done IV infusions in the past Will order 1 gm of Infed Assessment & Plan (10/23/2024 6:45 PM EDT): Is prescribed ferrous sulfate, has not been taking this cannot tolerate this Assessment & Plan (10/02/2024 5:35 PM EDT): Is prescribed ferrous sulfate, has not been taking this May need IV infusion she has done this in the past Recheck labs Assessment & Plan (11/13/2023 5:18 PM EDT): Admission for anemia 01/13 - required 4 unit PRBC. Normal EGD and Colonoscopy Patient tried two different formulations of PO iron - unable to tolerate, reports nausea, abdominal pain and cramping. Recent Iron profile - slight improvement in Ferritin but still suboptimal level She also has B12 deficiency. I suspect her she is not absorbing Iron and B12 due to prior Gastric bypass surgery. S/p iron infusion. Follow up iron profile. Assessment & Plan (08/15/2023 12:14 AM EST): Admission for anemia 01/13 - required 4 unit PRBC. Normal EGD and Colonoscopy Patient tried two different formulations of PO iron - unable to tolerate, reports nausea, abdominal pain and cramping. Recent Iron profile - slight improvement in Ferritin but still suboptimal level She also has B12 deficiency. I suspect her she is not absorbing Iron and B12 due to prior Gastric bypass surgery. Awaiting approval for IV iron infusion. Assessment & Plan (08/04/2023 5:41 PM EST): Admission for anemia 01/13 - required 4 unit PRBC. Normal EGD and Colonoscopy Patient tried two different formulations of PO iron - unable to tolerate, reports nausea, abdominal pain and cramping. Recent Iron profile - slight improvement in Ferritin but still suboptimal level She also has B12 deficiency. I suspect her she is not absorbing Iron and B12 due to prior Gastric bypass surgery. Start patient on B12 injections. Will start her on IV iron - as unable to tolerate PO iron, and likely has malabsorption of Iron due to prior gastric bypass surgery. Bipolar disorder with severe depression 07/04/20 Assessment & Plan (01/06/2025 6:09 PM EDT): Stop citalopram Cont duloxetine Add lamictal Referred to counseling and psych Declines wanting to go to ER at this time, she has custody of her grandson, would not want to jepordize this. Will complete FMLA paper and take her off from 01/02/25- next fu appt which is 02/05/25 I will keep in close conversation with her. Has support system as well Agrees if worsened or had SI/HI ideas would go to Er JESSIKA 7=21 and PHQ 9=25 Assessment & Plan (11/13/2023 5:19 PM EDT): Patient was previously on Celexa and Abilify. Her mood was stable on her regimen. Except for weight gain, she was not experiencing any significant adverse/side effects. She is currently on Celexa, Cymbalta and Wellbutrin. Her mood is stable and she is doing well on this regimen. Assessment & Plan (08/15/2023 12:18 AM EST): Patient was previously on Celexa and Abilify. Her mood was stable on her regimen. Except for weight gain, she was not experiencing any significant adverse/side effects. She was started on Cymbalta to help with her Fibromyalgia and plan was to wean her off of Celexa but she misunderstood the instructions provided and stopped using both abilify and Celexa. Did not tolerate Wellbutrin. Last appointment, she was seen for poorly controlled depression with frequent crying, unable to control her emotions, low motivation, anhedonia. She is doing better since she started using Celexa at 20 mg. Her mood is considerably better but she is feeling hot flashes ever since she stopped Celexa and now that she is back on it - symptoms are improved but still quite diabling and frequent with more or less daily symptoms. Increase to 40 mg daily Assessment & Plan (08/04/2023 5:32 PM EST): Patient was previously on Celexa and Abilify. Her mood was stable on her regimen. Except for weight gain, she was not experiencing any significant adverse/side effects. She was started on Cymbalta to help with her Fibromyalgia and plan was to wean her off of Celexa but she misunderstood the instructions provided and stopped using both abilify and Celexa. Previous appointment, she reported poorly controlled depression, frequent crying, being extremely emotional. She was started on Wellbutrin to help with her depression to act as a mood stabilizer, help a little weight loss. She returned today citing no improvement in her mood, reports frequent crying, unable to control her emotions, low motivation, anhedonia. Discussed different treatment options - will resume Celexa at lower dose - 20 mg. Patient will be seen for follow up in 2 weeks she is doing well. Assessment & Plan (07/04/2023 3:35 PM EST): Currently just on Cymbalta. Previously she was on Abilify and Celexa. Discontinued. Reports low mood, frequent crying, excessive tiredness, insomnia. Will start patient on Wellbutrin. Patient counseled and educated on adverse effects, drug interactions and to reach out to office/pharmacy if questions or concerns related to new medications. Fibromyalgia 07/04/2023 Assessment & Plan (01/06/2025 6:10 PM EDT): Will continue duloxetine Stop her citalopram Assessment & Plan (07/31/2024 3:18 PM EST): Repots aches/pain all over her body. She [...] aches and decrease daily use of Aleve. Assessment & Plan (04/10/2024 6:45 PM EDT): Repots aches/pain all over her body. She [...] immune disorder unremarkable. Seeing Rheumatology on 04/18 Assessment & Plan (03/12/2024 4:14 PM EDT): Repots aches/pain all over her body. She [...] up for underlying auto immune disorder unremarkable. Assessment & Plan (08/04/2023 5:34 PM EST): Repots aches/pain all over her body. She [...] up for underlying auto immune disorder unremarkable. Will refer to Rheumatology. Assessment & Plan (07/04/2023 3:46 PM EST): Repots aches/pain all over her body. She reports her skin is very sensitive to touch. Chronic diagnosis. She was previously on Lyrica - gained weight on it. Stopped using it because of that. She is currently on Cymbalta 60 mg with no improvement in her symptoms. She also reports intermittent swelling/arthritis of her joints - small or large with no specific aggravating/relieving factors. Intermittent pruritic rash over her chest and neck No Fhx of AI disease Will order Blood work for autoimmune diseasel GERD (gastroesophageal reflux disease) Assessment & Plan (01/06/2025 7:37 AM EDT): Recommendations: freq small meals, nothing to eat or drink at least 2 hours prior to bed, limit caffeine, alcohol, as well as spicy foods Meds to limit or avoid if possible: NSAIDS Elevate HOB if possible Current med: pantoprazole Assessment & Plan (11/20/2024 4:29 PM EDT): Recommendations: freq small meals, nothing to eat or drink at least 2 hours prior to bed, limit caffeine, alcohol, as well as spicy foods Meds to limit or avoid if possible: NSAIDS Elevate HOB if possible Current med: lansoprazole Abd sxs sound more gas related, does have hx GERD, on lansoprazole for some time, lets try change to pantoprazole Fu in 6 weeks Assessment & Plan (10/02/2024 5:02 PM EDT): Recommendations: freq small meals, nothing to eat or drink at least 2 hours prior to bed, limit caffeine, alcohol, as well as spicy foods Meds to limit or avoid if possible: NSAIDS Elevate HOB if possible Current med: lansoprazole Psychophysiological insomnia 07/04/2023 Assessment & Plan (01/06/2025 6:10 PM EDT): Current med: ambien Assessment & Plan (04/10/2024 6:43 PM EDT): Ambien no longer effective. Will trial Lunesta Assessment & Plan (11/13/2023 5:17 PM EDT): Sleeping well with 10 mg of Ambien. No adverse effects. Assessment & Plan (08/15/2023 12:13 AM EST): Sleeping well with 10 mg of Ambien. No adverse effects. Assessment & Plan (08/04/2023 5:57 PM EST): Sleeping well with 10 mg of Ambien. No adverse effects. Assessment & Plan (07/04/2023 3:47 PM EST): Mild improvement with Ambien. Increase to 10 mg. Follow up in 6 weeks. B12 deficiency 07/04/2023 Assessment & Plan (10/23/2024 6:11 PM EDT): Can lower dose to 1000 mcg daily Assessment & Plan (11/13/2023 5:17 PM EDT): Due to prior gastric bypass. Likely unable to absorb. She eats a regular diet and is not vegan Recheck B12 levels Assessment & Plan (08/15/2023 12:13 AM EST): Due to prior gastric bypass. Likely unable to absorb. She eats a regular diet and is not vegan Patient will start using B12 injections once she receives her syringes, prescribed today Assessment & Plan (08/04/2023 5:42 PM EST): Due to prior gastric bypass. Likely unable to absorb. She eats a regular diet and is not vegan Will start on B12 injections. Repeat levels in 2-3 months. Assessment & Plan (07/04/2023 3:48 PM EST): Due to prior gastric bypass. Started on PO B12. Will recheck in 2-3 months, will likely need injectable due to prior gastric bypass. Plantar fasciitis of right foot 06/30/2023 Rectocele 06/30/2023 Uterine prolapse 06/30/2023 Resolved Problems Problem Noted Date Diagnosed Date Resolved Date UTI (urinary tract infection), uncomplicated 11/20/2024 BMI 34.0-34.9,adult 10/02/2024 10/24/19 Female genital symptoms 08/12/2024 06/1 12/2024 Smoking 08/12/2024 10/02/2024 Dysmenorrhea 08/12/2024 11/20/2024 Acute non-recurrent maxillary sinusitis 08/12/2024 10/02/2024 Assessment & Plan (08/12/2024 4:41 PM EST): Zithromax , finish atb Fluids, rest Fu if not better, add steroid nasal spray Cutaneous abscess of abdominal wall 08/12/2024 11/20/2024 Overview (08/12/2024): Dori [id number] EXP: 10/22/2026 LOT # [id number] Assessment & Plan (08/12/2024 5:50 PM EST): Warm compress, recommend since she gets repeated abscess we check a culture and treat appropriately based on the culture Culture obtained BMI 33.0-33.9,adult 07/31/2024 10/24/19 Assessment & Plan (09/04/2024 4:25 PM EST): Started Adipex in July Starting weight: 206 [...] to 1600 calories daily if no contraindications. Assessment & Plan (07/31/2024 3:13 PM EST): Pt meets qualifications of [facility] 4731-05-27 for weight loss. BMI>30 or >27 with comorbid conditions. Blood pressure WNL. Notify office with any symptoms of chest pain, dyspnea, heart palpitations, or any anxiety symptoms. F/U in 4 weeks to document weight loss. Increase physical activity as tolerated, and lower caloric intake to 1600 calories daily if no contraindications Screening for diabetes mellitus 01/22/2024 10/02/2024 Assessment & Plan (01/22/2024 5:28 PM EDT): Screen for T2 DM Encounter for screening mamm ogram for breast cancer 01/22/2024 10/02/2024 Assessment & Plan (01/22/2024 5:29 PM EDT): Ordered mammogram. Fluid level behind tympanic membrane of both ears 01/22/2024 10/02/2024 Assessment & Plan (01/22/2024 5:29 PM EDT): Recent URTI , residual fluid behind TM b/l Non-recurrent acute suppurat ada otitis media of both ears without spontaneous rupture of tympanic membranes 01/08/2024 10/02/2024 Overactive bladder 11/13/2023 Cutaneous abscess of groin 08/15/2023 0 10/02/2024 Assessment & Plan (08/15/2023 12:20 AM EST): Small pea sized skin abscess in pubic region - on cefdinir for URTI. Should cover unless MRSA Patient asked to follow up if no improvement or worsening pain, swelling or fever. URTI (acute upper respiratory infection) 08/14/2023 10/02/2024 Assessment & Plan (08/15/2023 12:15 AM EST): Cough, rhinorrhea, fatigue, malaise x 2-3 weeks. No fever. No chills. No SOB but ear feels full. Exam showed TM is opaque b/l, thick, cloudy colored fluid, hyperemic oropharyngeal mucosa. Will call in oral Cefdinir, alongwith PO prednisone and benzonatate. Breast screening 07/04/2023 10/02/2024 Assessment & Plan (07/04/2023 3:48 PM EST): Ordered mammogram Menorrhagia with regular cycle 06/30/2023 11/20/2024 Encounters Date Type Department Care Team Description 01/14/2025 Refill [facility] [address] [place] [phone] Pascale Arana NP URTI (acute upper respiratory infection); Non-recurrent acute suppurative otitis media of both ears without spontaneous rupture of tympanic membranes 01/08/2025 Telephone [facility] [address] [place] [phone] Pascale Arana NP 01/07/2025 Orders Only [facility] [address] [place] [phone] Pascale Arana NP B12 deficiency (Primary Dx); Iron deficiency anemia secondary to inadequate dietary iron intake 01/07/2025 Telephone [facility] [address] [place] [phone] Pascale Arana NP Vaginitis/Bacterial Vaginosis 01/06/2025 4:30 PM EDT Office Visit [facility] [address] [place] [phone] Pascale Arana NP Bipolar disorder with severe depression (HCC) (Primary Dx); Gastroesophageal reflux disease, unspecified whether esophagitis present; Class 1 obesity due to excess calories without serious comorbidity with body mass index (BMI) of 32.0 to 32.9 in adult; Cigarette nicotine dependence without complication; Stress; Fibromyalgia; Psychophysiological insomnia 01/06/2025 Abstract [facility] [address] [place] [phone] Pascale Arana NP 01/06/2025 Telephone [facility] [address] [place] [phone] Pascale Arana NP 01/06/2025 Abstract [facility] [address] [place] [phone] Pascale Arana NP 01/06/2025 Bamboo flowsheet [facility] [address] [place] [address] Pascale Arana NP 12/18/2024 Refill [facility] [address] [place] [address] Pascale Arana, MARY JO URTI (acute upper respiratory infection); Non-recurrent acute suppurative otitis media of both ears without spontaneous rupture of tympanic membranes 11/28/2024 Results Follow-Up [facility] [address] [place] [address] 11/20/2024 3:20 PM EDT Procedure Visit [facility] [address] [place] [address] Pascale Arana NP Well woman exam with routine gynecological exam (Primary Dx); Gastroesophageal reflux disease, unspecified whether esophagitis present; BMI 32.0-32.9,adult; Class 1 obesity due to excess calories without serious comorbidity with body mass index (BMI) of 32.0 to 32.9 in adult; Iron deficiency anemia secondary to inadequate dietary iron intake; Class 1 obesity due to excess calories without serious comorbidity in adult, unspecified BMI; Hot flashes due to menopause 11/20/2024 Clinisync Result Encounter [facility] External Department Unsolicited Pascale Arana NP 11/20/2024 Bamboo flowsheet [facility] [address] [place] [address] Pascale Arana NP 11/18/2024 Orders Only [facility] [address] [place] [address] Pascale Arana NP 11/18/2024 Refill [facility] [address] [place] [address] Molina De Anda MD Psychophysiological insomnia 11/18/2024 Refill [facility] [address] [place] [address] Molina De Anda MD Fibromyalgia 11/18/2024 Refill [facility] [address] [place] [address] Molina De Anda MD Fibromyalgia 11/18/2024 Refill [facility] [address] [place] [address] Molina De Anda MD Bipolar disorder with severe depression (HCC) 11/18/2024 Refill [facility] [address] [place] [address] Pascale Arana, MARY JO Gastroesophageal reflux disease, unspecified whether esophagitis present 11/18/2024 Refill [facility] [address] [place] [address] Pascale Arana, MARY JO Overactive bladder due to prolapse of female genital organ 11/18/2024 Refill [facility] [address] [place] [address] Pascale Arana, MARY JO Fibromyalgia 11/18/2024 Refill [facility] [address] [place] [address] Pascale Arana, MARY JO Environmental and seasonal allergies 11/18/2024 Refill [facility] [address] [place] [address] Molina De Anda MD Plantar fasciitis of right foot (Primary Dx) 11/18/2024 Refill [facility] [address] [place] [address] Pascale Arana, MARY JO URTI (acute upper respiratory infection); Non-recurrent acute suppurative otitis media of both ears without spontaneous rupture of tympanic membranes 11/14/2024 Orders Only [facility] [address] [place] [address] Pascale Arana, MARY JO UTI (urinary tract infection), uncomplicated (Primary Dx) 11/14/2024 Telephone [facility] [address] [place] [phone] Pascale Arana NP Medication Question 10/23/2024 5:30 PM EDT Office Visit [facility] [address] [place] [phone] Pascale Arana NP Iron deficiency anemia secondary to inadequate dietary iron intake (Primary Dx); Class 1 obesity due to excess calories without serious comorbidity in adult, unspecified BMI; Cigarette nicotine dependence without complication; B12 deficiency; BMI 32.0-32.9,adult 10/23/2024 Clinisync Result Encounter [facility] External Department Unsolicited Pascale Arana NP 10/23/2024 Refill [facility] [address] [place] [phone] Molina De Anda MD URTI (acute upper respiratory infection); Non-recurrent acute suppurative otitis media of both ears without spontaneous rupture of tympanic membranes from Last 3 Months Family History Medical History Relation Name Comments Diabetes Father Heart disease Father Hypertension Father Stroke Father Breast cancer Maternal Grandmother Thyroid cancer Maternal Grandmother Diabetes Mother Breast cancer Mother's Sister Relation Name Status Comments Daughter 1 Alive Daughter 2 Alive Daughter 3 Alive Father Alive Maternal Grandmother Mother Alive Mother's Sister Alive Son Alive Social History Tobacco Use Types Packs/Day Years Used Date Smoking Tobacco: Every Day Cigarettes 1 39.5 Started: 1985 Passive Smoke Exposure: Past Smokeless Tobacco: Never Tobacco Cessation:Ready to Q uit: Not Asked; Counseling Given: Not Answered Comments:Thinking about quitting Alcohol Use Standard Drinks/Week Comments Never 0 [...] 08/07/2023 How often do you attend chur or scientologist services? Never 08/07/2023 Do you belong to any clubs o r organizations such as mandaen groups, unions, fraternal or athletic groups, or [...] Recorded Patient Health Questionnaire-2 Score 0 04/10/2024 [facility] - Occupational Stress Questionnaire Answer Date [...] place to sleep or slept in a correction (including now)? No 08/07/2023 Comments Unknown Sex and Gender Information Value Date Recorded Sex Assigned at Not on file Legal Sex Female 7:47 PM EDT Gender Identity Not on file Sexual Orientation Not on file Last Filed Vital Signs Vital Sign Reading [...] oz) 01/06/2025 4:32 P M EDT Height 165.1 cm (5' 5 ) 10/02/2024 4:51 PM EDT Body Mass Index 29.99 10/02/2024 4:51 PM EDT Plan of Treatment Upcoming Encounters Date Type Department Care Team (Late st Contact Info) Description 01/22/2025 9:00 AM EDT Office Visit [facility] [address] [email or web address] [address] [place] [phone] Karime Dias, PMHNP-BC [address] [place] [address] [place] [address] 02/05/2025 3:20 PM EDT Office Visit [facility] [address] [place] [address] Pascale Arana, MAIL TECHNICIAN [address] [place] [address] Health Maintenance Due Date Last Done Comments CT Colonography 1971 FIT-DNA 1971 FIT 1971 FOBT 1971 Lung Cancer Screening Shared Decision Making 1971 Sigmoidoscopy 1971 HPV/Cotest 2001 Influenza Vaccine (Season Ended) 2025 Mammogram 10/23/2025 10/23/2024 Cervical Cancer Screening 11/21/2027 Pap Smear 11/21/2027 11/20/2024 Colonoscopy 07/19/2033 07/19/2023, 07/19/2023 Colorectal Cancer Screening 07/19/2033 Goals Goal Patient Goal Type Associated Problems Recent Progress Patient-Stated? Author Help patient manage antidepressant medication Care Plan Patient on antidepressant monitoring plan No Shaikh Main MD Procedures Procedure Name Priority Date/Time Associated Diagnosis Comments IGP,APTIMA HPV,AGE GDLN Routine 11/20/2024 4:05 PM EDT SCANNED LABS Routine 11/18/2024 2:41 PM EDT URINARY TRACT INFECTION (HTRX) Routine 11/14/2024 12:00 AM EDT MM TOMOSYNTHESIS SCREENING BI 10/23/2024 3:55 PM EDT from Last 3 Months Results * (ABNORMAL) IGP,APTIMA HPV,AGE GDLN (11/20/2024 4:05 PM EDT) AGE GDLN ACOG TESTING Note . [facility] Comment: TESTS RESULT FLAG UNITS REF RANGE LAB Clinician Provided Cytology Information Source.............Cervix;Endocervix No. of containers..01 ThinPrep Vial Age Algo AC Fiorella... 31 FLAG LEGEND: L-Low Normal,H-High Normal,LL-Alert Low,HH-Alert High <-Panic Low,>-Panic High,A-Abnormal,AA-Critical Abnormal Performed at: 01 =[address] [address] Monika Norton MD, IGP, APTIMA HPV, RFX 16/18,45 Note . [facility] Comment: TESTS RESULT FLAG UNITS REF RANGE LAB DIAGNOSIS: 02 NEGATIVE FOR INTRAEPITHELIAL LESION OR MALIGNANCY. Specimen adequacy: 02 Satisfactory for evaluation. Endocervical and/or squamous metaplastic cells (endocervical component) are present. Performed by: 02 Carrol Guerrero Store Coordinator . 02 Note: Note 02 The Pap smear is a screening test designed to aid in the detection of premalignant and malignant conditions of the uterine cervix. It is not a diagnostic procedure and should not be used as the sole means of detecting cervical cancer. Both false-positive and false-negative reports do occur. Test Methodology: Note 02 This liquid based ThinPrep(R) pap test was screened with the use of an image guided system. HPV Genotype Reflex Note 02 Criteria met, see HPV Genotype results. FLAG LEGEND: L-Low Normal,H-High Normal,LL-Alert Low,HH-Alert High <-Panic Low,>-Panic High,A-Abnormal,AA-Critical Abnormal Performed at: [address] [address] Monika Norton MD, HPV APTIMA Positive(A) Negative [facility] Comment: This nucleic acid amplification test detects fourteen high- risk HPV types (16,18,31,33,35,39,45,51,52,56,58,59,66,68) without differentiation. HPV GENOTYPE 16 Negative Negative [facility] HPV GENOTYPE 18,45 Negative Negative [facility] Comment: Performed at: =[address] [id number] Analytical Clerk: Monika Norton MD, Phone: [phone] Performed at: [address] [id number] Analytical Clerk: Monika Norton MD, Phone: [phone] 11/20/2024 4:05 PM EDT 11/21/2024 7:10 AM EDT Narrative [facility] - 11/26/2024 8:08 PM EDT BRUSH-ALONE CERVIX ENDOCERVIX Pascale Mezakendall MAIL TECHNICIAN LAB BLOOD ORDERABLES Final Resu lt [facility] * SCANNED LABS (11/18/2024 2:41 PM EDT) Pascale Sumit MAIL TECHNICIAN LAB CHG PERFORMABLES Final Resu lt * URINARY TRACT INFECTION (HTRX) (11/14/2024 12:00 AM EDT) Pathologist [facility] ACINETOBACTER BAUMANII 0.000 19.961 - 24.689 ppm 11/16/2024 10:36 AM EDT [facility] ACINETOBACTER BAUMANII Not Detected 19.961 - 24.689 ppm 11/16/2024 10:36 AM EDT [facility] CITROBACTER FREUNDII 0.000 23.000 - 31.881 ppm 11/16/2024 10:36 AM EDT [facility] CITROBACTER FREUNDII Not Detected 23.000 - 31.881 ppm 11/16/2024 10:36 AM EDT [facility] ENTEROBACTER AEROGENES, CLOACAE 0.000 23.000 - 31.535 ppm 11/16/2024 10:36 AM EDT [facility] ENTEROBACTER AEROGENES, CLOACAE Not Detected 23.000 - 31.535 ppm 11/16/2024 10:36 AM EDT [facility] ENTEROCOCCUS FAECALIS, FAECIUM 0.000 26.000 - 31.575 ppm 11/16/2024 10:36 AM EDT [facility] ENTEROCOCCUS FAECALIS, FAECIUM Not Detected 26.000 - 31.575 ppm 11/16/2024 10:36 AM EDT [facility] ESCHERICHIA COLI 0.000 23.000 - 28.500 ppm 11/16/2024 10:36 AM EDT [facility] ESCHERICHIA COLI Not Detected 23.000 - 28.500 ppm 11/16/2024 10:36 AM EDT [facility] KLEBSIELLA PNEUMONIAE, OXYTOCA 0.000 23.000 - 30.500 ppm 11/16/2024 10:36 AM EDT [facility] KLEBSIELLA PNEUMONIAE, OXYTOCA Not Detected 23.000 - 30.500 ppm 11/16/2024 10:36 AM EDT [facility] MORGANELLA MORGANII 0.000 19.961 - 24.689 ppm 11/16/2024 10:36 AM EDT [facility] MORGANELLA MORGANII Not Detected 19.961 - 24.689 ppm 11/16/2024 10:36 AM EDT [facility] PROTEUS MIRABILIS, VULGARIS 0.000 23.000 - 28.500 ppm 11/16/2024 10:36 AM EDT [facility] PROTEUS MIRABILIS, VULGARIS Not Detected 23.000 - 28.500 ppm 11/16/2024 10:36 AM EDT [facility] PSEUDOMONAS AERUGINOSA 0.000 23.000 - 28.500 ppm 11/16/2024 10:36 AM EDT [facility] PSEUDOMONAS AERUGINOSA Not Detected 23.000 - 28.500 ppm 11/16/2024 10:36 AM EDT [facility] STAPHYLOCOCCUS AUREUS 0.000 26.000 - 30.902 ppm 11/16/2024 10:36 AM EDT [facility] STAPHYLOCOCCUS AUREUS Not Detected 26.000 - 30.902 ppm 11/16/2024 10:36 AM EDT [facility] STREPTOCOCCUS AGALACTIAE (GROUP B STREP) 0.000 26.000 - 32.222 ppm 11/16/2024 10:36 AM EDT [facility] STREPTOCOCCUS AGALACTIAE (GROUP B STREP) Not Detected 26.000 - 32.222 ppm 11/16/2024 10:36 AM EDT [facility] TEJINDER ALBICANS, PARAPSILOSIS, TROPICALIS 0.000 19.961 - 30.770 ppm 11/16/2024 10:36 AM EDT [facility] TEJINDER ALBICANS, PARAPSILOSIS, TROPICALIS Not Detected 19.961 - 30.770 ppm 11/16/2024 10:36 AM EDT [facility] TEJINDER GLABRATA 0.000 23.000 - 32.138 ppm 11/16/2024 10:36 AM EDT [facility] TEJINDER GLABRATA Not Detected 23.000 - 32.138 ppm 11/16/2024 10:36 AM EDT [facility] TEJINDER KRUSEI 0.000 23.000 - 32.271 ppm 11/16/2024 10:36 AM EDT [facility] TEJINDER KRUSEI Not Detected 23.000 - 32.271 ppm 11/16/2024 10:36 AM EDT [facility] SERRATIA MARCESCENS 0.000 23.000 - 31.204 ppm 11/16/2024 10:36 AM EDT [facility] SERRATIA MARCESCENS Not Detected 23.000 - 31.204 ppm 11/16/2024 10:36 AM EDT [facility] STREPTOCOCCUS PYOGENES (GROUP A STREP) 0.000 19.961 - 24.689 ppm 11/16/2024 10:36 AM EDT [facility] STREPTOCOCCUS PYOGENES (GROUP A STREP) Not Detected 19.961 - 24.689 ppm 11/16/2024 10:36 AM EDT [facility] STAPHYLOCOCCUS EPIDERMIDIS, HAEMOLYTICUS, LUGDUNENSIS, SAPROPHYTICUS (URINA 0.000 19.961 - 24.689 ppm 11/16/2024 10:36 AM EDT [facility] STAPHYLOCOCCUS EPIDERMIDIS, HAEMOLYTICUS, LUGDUNENSIS, SAPROPHYTICUS (URINA Not Detected 19.961 - 24.689 ppm 11/16/2024 10:36 AM EDT [facility] STAPHYLOCOCCUS EPIDERMIDIS, HAEMOLYTICUS, LUGDUNENSIS, SAPROPHYTICUS (URINA 0.000 19.961 - 24.689 ppm 11/16/2024 10:36 AM EDT [facility] STAPHYLOCOCCUS EPIDERMIDIS, HAEMOLYTICUS, LUGDUNENSIS, SAPROPHYTICUS (URINA Not Detected 19.961 - 24.689 ppm 11/16/2024 10:36 AM EDT [facility] Urine 11/14/2024 11/16/2024 5:2 3 AM EDT Pascale Arana NP LAB BLOOD ORDERABLES Final Resu lt [facility] [place] [address] * MM TOMOSYNTHESIS SCREENING BI (10/23/2024 3:55 PM EDT) Anatomical Region Laterality Modality Other 10/23/2024 3:55 PM EDT Narrative 10/23/2024 3:55 [place] [address] Mammography Report Signed Patient: TALIA RUTHERFORD MR#: [id number] : 1970 Acct:[id number] Age/Sex: 54 / F ADM Date: 10/23/24 Loc: MAMMO Attending Dr: Pascale Arana NP Ordering Physician: Pascale Arana NP Results: Date of Service: 10/23/24 Follow Up: Procedure(s): MM tomosynthesis screening BI Accession Number(s): [id number] cc: Pascale Arana NP Patient Name: TALIA RUTHERFORD MR#: [id number] : 1970 Exam Date: 10/23/2024 Ordering Doctor: JASON Arana CNP RADIOLOGY REPORT PROCEDURE: MM TOMOSYNTHESIS SCREENING BI COMPARISON: None. INDICATIONS: Screening Calculator Name NCI Breast Cancer Risk Assessment Tool 5 Year Breast Cancer Risk 0.80% Lifetime Breast Cancer Risk 6.20% Personal Breast Cancer No Personal Ovarian Cancer No Treatments None Family Cancers Grandmother-maternal with breast cancer at age 50; Aunt-maternal with breast cancer at age 50. LOCATION: [facility] BREAST COMPOSITION: There are scattered areas of fibroglandular density. FINDINGS: DIAGNOSTIC CATEGORY 1--NEGATIVE. RIGHT BREAST: No significant suspicious finding. LEFT BREAST: No significant suspicious finding. RECOMMENDATIONS: ROUTINE MAMMOGRAM AND CLINICAL EVALUATION IN 12 MONTHS. PLEASE NOTE: A NORMAL MAMMOGRAM DOES NOT EXCLUDE THE POSSIBILITY OF BREAST CANCER. A CLINICALLY SUSPICIOUS PALPABLE LUMP SHOULD BE BIOPSIED. Dictated by: Merlin Massey DO on 10/23/2024 at 15:43 Approved by: Merlin Massey DO on 10/23/2024 at 15:55 Dictated By: Merlin Massey M.D. Signed By: 10/23/24 1555 DD/ TD/TT: Chairman Emeritus: Procedure Note Radiology, Radiologist, MD - 10/23/2024 [place] [address] Mammography Report Signed Patient: TALIA RUTHERFORD DMR#: [id number] : 1970Acct:[id number] Age/Sex: 54 / FADM Date: 10/23/24 Loc: MAMMO Attending Dr: Pascale Arana NP Ordering Physician: Pascale Arana NPResults: Date of Service: 10/23/24Follow Up: Procedure(s): MM tomosynthesis screening BI Accession Number(s): [id number] cc: Pascale Arana NP Patient Name: TALIA RUTHERFORD MR#: [id number] : 1970 Exam Date: 10/23/2024 Ordering Doctor: JASON Arana CNP RADIOLOGY REPORT PROCEDURE: MM TOMOSYNTHESIS SCREENING BI COMPARISON: None. INDICATIONS: Screening Calculator Name NCI Breast Cancer Risk Assessment Tool 5 Year Breast Cancer Risk 0.80% Lifetime Breast Cancer Risk 6.20% Personal Breast Cancer No Personal Ovarian Cancer No Treatments None Family Cancers Grandmother-maternal with breast cancer at age 50; Aunt-maternal with breast cancer at age 50. LOCATION: [facility] BREAST COMPOSITION: There are scattered areas of fibroglandulardensity. FINDINGS: DIAGNOSTIC CATEGORY 1--NEGATIVE. RIGHT BREAST: No significant suspicious finding. LEFT BREAST: No significant suspicious finding. RECOMMENDATIONS: ROUTINE MAMMOGRAM AND CLINICAL EVALUATION IN 12 MONTHS. PLEASE NOTE: A NORMAL MAMMOGRAM DOES NOT EXCLUDE THE POSSIBILITY OFBREAST CANCER. A CLINICALLY SUSPICIOUS PALPABLE LUMP SHOULD BE BIOPSIED. Dictated by: Merlin Massey DO on 10/23/2024 at 15:43 Approved by: Merlin Massey DO on 10/23/2024 at 15:55 Dictated By: Merlin Massey M.D. Signed By:10/23/24 1555 DD/ 1555 TD/TT: Chairman Emeritus: Pascale Arana NP [facility] Final Result from Last 3 Months Additional Health Concerns Active Problems Noted Date Diagnosed Date Patient on antidepressant monitoring plan 2023 Insurance [employer] [facility] Address: [address] [address] Care Teams Nurses Superintendent Relationship Specialty Start Date End Date Molina De Anda MD [address] [place] [address] PCP - General Family Medicine 02/21/24 Valerie Groves NP [address] [place] [address] Nurse Practitioner Family Medicine 02/21/24
--- OUTSIDE RECORDS SUMMARY | 2025-01-14 12:45 | XMS_ITS | Encounter Summary ---
Author Organization [facility] Address [address] [place] [address] Care Team Providers Care Stage Manager Name Role Phone Molina De Anda MD Primary Care Provider [phone] Valerie Groves FINANCIAL AID OFFICER Unavailable [phone] Encounter Details Date Type Department Care Team (Late st Contact Info) Description 01/06/2025 Bamboo flowsheet [facility] [address] [place] [phone] Pascale Arana NP [address] [place] [address] Social History Tobacco Use Types Packs/Day Years [...] How often do you attend chur or pentecostalism services? Never 08/07/2023 Do you belong to any clubs o r organizations such as adventist groups, unions, fraternal or athletic groups, or [...] Recorded Patient Health Questionnaire-2 Score 0 04/10/2024 [facility] - Occupational Stress Questionnaire Answer [...] place to sleep or slept in a long-term (including now)? No 08/07/2023 Comments Unknown Sex and Gender Information Value Date Recorded Sex Assigned at Not on file Legal Sex Female 7:47 PM EDT Gender Identity Not on file Sexual Orientation Not on file documented as of this encounter Plan of Treatment Upcoming Encounters Date Type Department Care Team (Late st Contact Info) Description 01/22/2025 9:00 AM EDT Office Visit N[facility] [address] [facility] [address] [place] [address] Karime Dias [facility] [address] [facility] [address] [place] [address] 02/05/2025 3:20 PM EDT Office Visit [facility] [address] [place] [phone] Pascale Arana NP [address] [place] [address] documented as of this encounter Goals Goal Patient Goal Type Associated Problems Recent Progress Patient-Stated? Author Help patient manage antidepressant medication Care Plan Patient on antidepressant monitoring plan No Shaikh Main MD documented as of this encounter Visit Diagnoses Not on filedocumented in this encounter Additional Health Concerns Active Problems Noted Date Diagnosed Date Patient on antidepressant monitoring plan 2023 Assessment Noted Time PHQ-9 Depression Total Score: 23 024 4:27 PM EST documented as of this encounter Care Teams Stage Manager Relationship Specialty Start Date End Date Moilna De Anda MD [address] [place] [address] PCP - General Family Medicine 02/21/24 Valerie Groves NP [address] [place] [address] Nurse Practitioner Family Medicine 02/21/24 documented as of this encounter
--- OUTSIDE RECORDS SUMMARY | 2025-01-14 12:45 | XMS_ITS | Encounter Summary ---
Author Organization [facility] Address [address] [place] [address] Care Team Providers Care Enterprise Security Architect Name Role Phone Shaikh NITHIN Main Primary Care Provider [phone] Shaikh NITHIN Main Primary Care Provider [phone] Molina De Anda MD Primary Care Provider [phone] Valerie Groves TAX ANALYST Unavailable [phone] Encounter Details Date Type Department Care Team (Late st Contact Info) Description 08/03/2023 Orders Only [facility] [address] [place] [address] Shaikh Main MD [address] [place] [address] Social History Tobacco Use Types Packs/Day Years Used Date Smoking Tobacco: Every Day Cigarettes 1 39.5 Started: 1984 Smokeless Tobacco: Never Comments:Thinking about quit ting [...] 08/07/2023 How often do you attend chur [email or web address] or episcopal services? Never 08/07/2023 Do you belong to any clubs o r organizations such as yazidism groups, unions, fraternal or athletic groups, or [...] Answer Date Recorded Patient Health Questionnaire-2 Score 6 08/03/2023 [facility] - Occupational Stress Questionnaire Answer Date [...] place to sleep or slept in a fpc (including now)? No 08/07/2023 Comments Unknown Sex and Gender Information Value Date Recorded Sex Assigned at Not on file Legal Sex Female 7:47 PM EDT Gender Identity Not on file Sexual Orientation Not on file documented as of this encounter Functional Status * Over the past 2 weeks, how often have you been bothered by any of the following problems? Question Answer Date of Assessment Author Little interest or pleasure in doing things Nearly every day 08/03/2023 4:27 PM Milan Huizar MA Feeling down, depressed, or hopeless Nearly every day 08/03/2023 4:27 PM Neema Huizar M A Patient Health Questionnaire-2 Score 6 08/03/2023 4:27 PM Neema Huizar MA * Question Answer Date of Assessment Author Trouble falling or staying asleep, or sleeping too much Nearly every day 08/03/2023 4:27 PM Neema Huizar M A Feeling tired or having little energy Nearly every day 08/03/2023 4:27 PM Neema Huizar M A Poor appetite or overeating Nearly every day 08/03/2023 4:27 PM Neema Huizar M A Feeling bad about yourself - or that you are a failure or have let yourself or your family down Nearly every day 08/03/2023 4:27 PM Neema Huizar M A Trouble concentrating on things, such as reading the newspaper or watching television Nearly every day 08/03/2023 4:27 PM Neema Huizar M A Moving or speaking so slowly that other people could have noticed? Or the opposite - being so fidgety or restless that you have been moving around a lot more than usual. More than half the days 08/03/2023 4:27 PM Neema Huizar MA Thoughts that you would be better off or hurting yourself in some way Not at all 08/03/2023 4:27 PM Neema Huizar MA Patient Health Questionnaire-9 Score 23 08/03/2023 4:27 PM Neema Huizar MA * If you checked off any problems on this questionnaire so far, Question Answer Date of Assessment Author How difficult have these problems made it for you to do your work, take care of things at home, or get along with other people? Very difficult 08/03/2023 4:27 PM Lan Huizar MA documented as of this encounter Plan of Treatment Upcoming Encounters Date Type Department Care Team (Late st Contact Info) Description 01/22/2025 9:00 AM EDT Office Visit [facility] [address] [facility] [address] [place] [address] Karime Dias [facility] [address] [facility] [address] [place] [address] 02/05/2025 3:20 PM EDT Office Visit [facility] [address] [place] [place] [address] Pascale Arana NP [address] [place] [address] documented as of this encounter Goals Goal Patient Goal Type Associated Problems Recent Progress Patient-Stated? Author Help patient manage antidepressant medication Care Plan Patient on antidepressant monitoring plan No Shaikh Main MD documented as of this encounter Procedures Procedure Name Priority Date/Time Associated Diagnosis Comments MISCELLANEOUS LAB TEST Routine 07/28/2023 2:09 PM EST documented in this encounter Results * - Miscellaneous Test (07/28/2023 2:09 PM EST) Shaikh Etelvina [facility] BLOOD ORDERABLES Final Resu lt documented in this encounter Visit Diagnoses Not on filedocumented in this encounter Additional Health Concerns Active Problems Noted Date Diagnosed Date Patient on antidepressant monitoring plan 2023 Assessment Noted Time PHQ-9 Depression Total Score: 23 024 4:27 PM EST documented as of this encounter Care Teams Enterprise Security Architect Relationship Specialty Start Date End Date Shaikh Main MD PCP - General Internal Medicine 04/20/23 01/07/24 Shaikh Main MD [address] [place] [address] PCP - General Internal Medicine 01/08/24 02/20/24 Molina De Anda MD [address] [place] [address] PCP - General Family Medicine 02/21/24 Valerie Groves NP [address] [place] [address] Nurse Practitioner Family Medicine 02/21/24 documented as of this encounter
--- OUTSIDE RECORDS SUMMARY | 2025-01-14 12:45 | XMS_ITS | Encounter Summary ---
Author Organization [facility] Address [address] [place] [address] Care Team Providers Care Sewage Disposal Worker Name Role Phone Shaikh NITHIN Main Primary Care Provider [phone] Shaikh NITHIN Main Primary Care Provider [phone] Molina De Anda MD Primary Care Provider [phone] Valerie Groves PILE HEADER Unavailable [phone] Encounter Details Date Type Department Care Team (Late st Contact Info) Description 08/02/2023 Orders Only [facility] [address] [place] [address] Shaikh Main MD [address] [place] [address] Social History Tobacco Use Types Packs/Day Years [...] afraid of your partner or ex-partner? No 07/03/2023 Within the last year, have y ou been humiliated or emotionally abused in other ways by your partner or ex-partner? No Within the last year, have y ou been kicked, hit, slapped, or otherwise physically hurt by your partner or ex-partner? No 07/03/2023 Within the last year, have y ou been raped or forced to have any kind of sexual activity by your partner or ex-partner? No 07/03/2023 Social Connection and Isolat ion Panel [NHANES] Answer Date Recorded In a typical week, how many times do you talk on the phone with family, friends, or neighbors? More than three times a week 07/03/2023 How often do you get togethe r with friends or relatives? Once a week 07/03/2023 How often do you attend chur or orthodox services? Patient declined 07/03/2023 Do you belong to any clubs o r organizations such as synagogue groups, unions, fraMaternova or athletic groups, or school groups? No 07/03/2023 How often do you attend meet ings of the clubs or organizations you belong to? Patient declined 07/03/2023 Are you , , di vorced, , never , or living with a partner? 07/03/2023 AUDIT-C Answer Date Recorded Q1: How often do you have a drink containing alc ohol? Patient declined 07/03/2023 Q2: How many drinks containi ng alcohol do you have on a typical day when you are drinking? Patient declined 07/03/2023 Q3: How often do you have si x or more drinks on one occasion? Patient declined 07/03/2023 Overall Financial Resource Strain (CARDIA) Answe r Date Recorded How hard is it for you to pa y for the very basics like food, housing, medical care, and heating? Not hard at all 07/03/2023 PHQ-2 Answer Date Recorded Patient Health Questionnaire-2 Score 6 08/03/2023 [facility] - Occupational Stress Questionnaire Answer Date Recorded Do you feel stress - tense, restless, nervous, or anxious, or unable to sleep at night because your mind is troubled all the time - these days? To some extent 07/03/2023 Exercise Vital Sign Answer Date Recorde d On average, how many days pe r week do you engage in moderate to strenuous exercise (like a brisk walk)? 2 days 07/03/2023 On average, how many minutes do you engage in exercise at this level? 10 min 07/03/2023 Hunger Vital Sign Answer Date Recorded Within the past 12 months, y ou worried that your food would run out before you got the money to buy more. Never true 07/03/20 23 Within the past 12 months, t he food you bought just didn't last and you didn't have money to get more. Never true 07/03/2023 PRAPARE - Transportation Answer Date Re corded In the past 12 months, has l ack of transportation kept you from medical appointments or from getting medications? No 06/23 In the past 12 months, has l ack of transportation kept you from meetings, work, or from getting things needed for daily living? No 07/03/2023 Housing Stability Vital Sign Answer Earnest e Recorded In the last 12 months, was t here a time when you were not able to pay the mortgage or rent on time? No 07/03/2023 In the last 12 months, how many places have you lived? 1 07/03/2023 In the last 12 months, was t here a time when you did not have a steady place to sleep or slept in a usp (including now)? No 07/03/2023 Comments Unknown Sex and Gender Information Value [...] other people? Very difficult 08/03/2023 4:27 PM Neema Huizar M A documented as of this encounter Plan of Treatment Upcoming Encounters Date Type Department Care Team (Late st Contact Info) Description 01/22/2025 9:00 AM EDT Office Visit [facility] [address] [facility] [address] [place] [address] Karime Dias [facility] [address] [facility] [address] [place] [address] 02/05/2025 3:20 PM EDT Office Visit [facility] [address] [place] [address] Pascale Arana NP [address] [place] [address] documented as of this encounter Procedures Procedure Name Priority Date/Time Associated Diagnosis Comments MISCELLANEOUS LAB TEST Routine 07/28/2023 1:49 PM EST documented in this encounter Results * - Miscellaneous Test (07/28/2023 1:49 PM EST) Shaikh Etelvina [facility] BLOOD ORDERABLES Final Resu lt documented in this encounter Visit Diagnoses Not on filedocumented in this encounter Care Teams Sewage Disposal Worker Relationship Specialty Start Date End Date Shaikh Main MD PCP - General Internal Medicine 04/20/23 01/07/24 Shaikh Main MD [address] [place] [address] PCP - General Internal Medicine 01/08/24 02/20/24 Molina De Anda MD [address] [place] [address] PCP - General Family Medicine 02/21/24 Valerie Groves NP [address] [place] [address] Nurse Practitioner Family Medicine 02/21/24 documented as of this encounter
--- OUTSIDE RECORDS SUMMARY | 2025-01-14 12:45 | XMS_ITS | Encounter Summary ---
Author Organization [facility] Address [address] [place] [address] Care Team Providers Care Aerophysicist Name Role Phone Molina De Anda MD Primary Care Provider [phone] Valerie Groves HOME CARE PROVIDER Unavailable Encounter Details Date Type Department Care Team (Late st Contact Info) Description 02/29/2024 Orders Only [facility] [address] [place] [address] Valerie Groves NP Social History Tobacco Use Types Packs/Day Years [...] often do you attend chur ch or restorationist services? Never 08/07/2023 Do you belong to any clubs o r organizations such as oriental orthodox groups, unions, fraternal or athletic groups, or [...] Date Recorded Patient Health Questionnaire-2 Score 0 02/28/2024 [facility] Answer Date Recorded [...] place to sleep or slept in a mcfp (including now)? No 08/07/2023 Comments Unknown Sex and Gender Information Value Date Recorded Sex Assigned at Not on file Legal Sex Female 7:47 PM EDT Gender Identity Not on file Sexual Orientation Not on file documented as of this encounter Plan of Treatment Upcoming Encounters Date Type Department Care Team (Late st Contact Info) Description 01/22/2025 9:00 AM EDT Office Visit [facility] [address] [place] [address] [place] [address] Karime Dias [facility]- [address] [place] [address] [place] [address] 02/05/2025 3:20 PM EDT Office Visit [facility] [address] [place] [address] Pascale Arana NP [address] [place] [address] documented as of this encounter Goals Goal Patient Goal Type Associated Problems Recent Progress Patient-Stated? Author Help patient manage antidepressant medication Care Plan Patient on antidepressant monitoring plan No Shaikh Main MD documented as of this encounter Procedures Procedure Name Priority Date/Time Associated Diagnosis Comments CT ABDOMEN & PELVIS W Routine 02/26/2024 10:48 AM EDT documented in this encounter Results * CT ABDOMEN & PELVIS W (02/26/2024 10:48 AM EDT) Anatomical Region Laterality Modality Radiographic Maeve ging Valerie Groves HOME CARE PROVIDER IMG XR PROCEDURES Final Result documented in this encounter Visit Diagnoses Not on filedocumented in this encounter Additional Health Concerns Active Problems Noted Date Diagnosed Date Patient on antidepressant monitoring plan 2023 Assessment Noted Time PHQ-9 Depression Total Score: 23 024 4:27 PM EST documented as of this encounter Care Teams Aerophysicist Relationship Specialty Start Date End Date Molina De Anda MD [address] [place] [address] PCP - General Family Medicine 02/21/24 Valerie Groves NP [address] [place] [address] Nurse Practitioner Family Medicine 02/21/24 documented as of this encounter
--- OUTSIDE RECORDS SUMMARY | 2025-01-14 12:45 | XMS_ITS | Encounter Summary ---
Author Organization [facility] Address [address] [place] [address] Care Team Providers Care Sanitary Engineer Name Role Phone Shaikh NITHIN Main Primary Care Provider [phone] Shaikh NITHIN Main Primary Care Provider [phone] Molina De Anda MD Primary Care Provider [phone] Valerie Groves [facility] [place] Unavailable [phone] Encounter Details Date Type Department Care Team (Late st Contact Info) Description 08/07/2023 Orders Only [facility] [address] [place] [address] Shaikh Main MD [address] [place] [address] Social History Tobacco Use Types Packs/Day Years [...] 08/07/2023 How often do you attend chur Shipzi or hindu services? Never 08/07/2023 Do you belong to any clubs o r organizations such as holiness groups, unions, fraternal or athletic groups, or [...] Recorded Patient Health Questionnaire-2 Score 6 08/03/2023 [facility] Health - Occupational Stress Questionnaire Answer Date [...] place to sleep or slept in a retirement (including now)? No 08/07/2023 Comments Unknown Sex and Gender Information Value Date Recorded Sex Assigned at Not on file Legal Sex Female 7:47 PM EDT Gender Identity Not on file Sexual Orientation Not on file documented as of this encounter Functional Status * Audit-C Score Answer Date of Assessment Author 0 08/07/2023 12:46 PM Brenda Campoverde * Q1: How often do you have a drink containing alcohol? Answer Date of Assessment Author Never 08/07/2023 12:46 PM Brenda Campoverde * Q2: How many drinks containing alcohol do you have on a typical day when you are drinking? Answer Date of Assessment Author Patient does not drink 08/07/2023 12:46 PM Brenda Hernandez * Q3: How often do you have six or more drinks on one occasion? Answer Date of Assessment Author Never 08/07/2023 12:46 PM Brenda Campoverde documented as of this encounter Plan of Treatment Upcoming Encounters Date Type Department Care Team (Late st Contact Info) Description 01/22/2025 9:00 AM EDT Office Visit [facility] [address] [place] [address] [place] [address] DiasKarime boo, PMHNP- [address] [place] [address] [place] [address] 02/05/2025 3:20 PM EDT Office Visit [facility] [address] [place] [address] Pascale Arana, [facility] [place] [address] [place] [address] documented as of this encounter Goals Goal Patient Goal Type Associated Problems Recent Progress Patient-Stated? Author Help patient manage antidepressant medication Care Plan Patient on antidepressant monitoring plan No Shaikh Main MD documented as of this encounter Procedures Procedure Name Priority Date/Time Associated Diagnosis Comments TSH W/REFLEX T4 Routine 07/28/2023 11:37 AM EST documented in this encounter Results * TSH W/REFLEX T4 (07/28/2023 11:37 AM EST) Shaikh Etelvina [facility] BLOOD ORDERABLES Final Resu lt documented in this encounter Visit Diagnoses Not on filedocumented in this encounter Additional Health Concerns Active Problems Noted Date Diagnosed Date Patient on antidepressant monitoring plan 2023 Assessment Noted Time PHQ-9 Depression Total Score: 23 024 4:27 PM EST documented as of this encounter Care Teams Sanitary Engineer Relationship Specialty Start Date End Date Shaikh Main MD PCP - General Internal Medicine 04/20/23 01/07/24 Shaikh Main MD [address] [place] [address] PCP - General Internal Medicine 01/08/24 02/20/24 Mloina De Anda MD [address] [place] [address] PCP - General Family Medicine 02/21/24 Valerie Groves NP [address] [place] [address] Nurse Practitioner Family Medicine 02/21/24 documented as of this encounter
--- OUTSIDE RECORDS SUMMARY | 2025-01-14 12:45 | XMS_ITS | Encounter Summary ---
Author Organization [employer] tem Address [id number] [address] [place] [address] Care Team Providers Care Motor Man Name Role Phone No Pcp, No Pcp Primary Care Provider Unavailabl e Encounter Details Date Type Department Care Team (Late st Contact Info) Description 02/13/2023 Telephone [facility] [address] [place] [address] Segun Keene DO [address] [place] [address] Social History Tobacco Use Types Packs/Day Years Used Date Smoking Tobacco: Never Assessed Childcare Answer Date Recorded Childcare Unknown 01/02/2019 Employment Answer Date Recorded Employment Unknown 01/02/2019 Purpose - Life Answer Date Recorded Purpose and direction in life Unknown Comments Unknown Sex and Gender Information Value Date Recorded Sex Assigned at Not on file Legal Sex Female 12:10 PM EDT Gender Identity Not on file Sexual Orientation Not on file documented as of this encounter Miscellaneous Notes * Telephone Encounter - Alberta Millan - 02/13/2023 11:36 AM EDT ----- Message from Segun Keene DO sent at 02/09/2023 8:18 PM EDT ----- Regarding: cancel office visit;just set up for colonsocopy at [facility] for anemis. I don't need to see he agian. Saw her today!!! * Telephone Encounter - Alberta Millan - 02/13/2023 11:36 AM EDT Talia called the office to try to reschedule her appointment, I informed her that Dr. Jassi greerntderrick her set up for a colonoscopy at [facility]. Told Talia that our surgery schedulerwill call her back to schedule that with her. * Telephone Encounter - SUGEY Loyd - 02/13/2023 11:36 AM EDT I called Talia and scheduled colonoscopy at [facility] for 03/08/23. The patient is coming in tomorrow 02/14/23 to sign papers and go over bowel prep. I will send Dr. Keene a message to put in orders for this procedure and email everything over to Anh at the [facility]. documented in this encounter Plan of Treatment Not on file documented as of this encounter Visit Diagnoses Not on filedocumented in this encounter Care Teams Motor Man Relationship Specialty Start Date End Date No Pcp, [place] [address] PCP - General Family Medicine 11/21/18 documented as of this encounter
--- OUTSIDE RECORDS SUMMARY | 2025-01-14 12:45 | XMS_ITS | Encounter Summary ---
Author Organization [facility] Address [address] [place] [address] Care Team Providers Care Skin Therapist Name Role Phone Molina De Anda MD Primary Care Provider [phone] Valerie Groves PIE BOTTOMER Unavailable [phone] Encounter Details Date Type Department Care Team (Late st Contact Info) Description 11/28/2024 Results Follow-Up [facility] [address] [place] [address] Social History Tobacco Use Types Packs/Day Years [...] often do you attend chur ch or orthodoxy services? Never 08/07/2023 Do you belong to any clubs o r organizations such as druze groups, unions, fraternal or athletic groups, or [...] Recorded Patient Health Questionnaire-2 Score 0 04/10/2024 [facility] Questionnaire Answer [...] place to sleep or slept in a chcf (including now)? No 08/07/2023 Comments Unknown Sex and Gender Information Value Date Recorded Sex Assigned at Not on file Legal Sex Female 7:47 PM EDT Gender Identity Not on file Sexual Orientation Not on file documented as of this encounter Plan of Treatment Upcoming Encounters Date Type Department Care Team (Late st Contact Info) Description 01/22/2025 9:00 AM EDT Office Visit [facility] [address] [facility] [address] [place] [address] [facility] [address] [place] [address] [place] [address] 02/05/2025 3:20 PM EDT Office Visit [facility] [address] [place] [address] Pascale Arana NP [address] [place] [address] documented as of this encounter Goals Goal [...] documented as of this encounter Care Teams Skin Therapist Relationship Specialty Start Date End Date Molina De Anda MD [address] [place] [address] PCP - General Family Medicine 02/21/24 Valerie Groves NP [address] [place] [address] Nurse Practitioner Family Medicine 02/21/24 documented as of this encounter
--- OUTSIDE RECORDS SUMMARY | 2025-01-14 12:45 | XMS_ITS | Encounter Summary ---
Author Organization [facility] Address [address] [place] [address] Care Team Providers Care Grocery Supervisor Name Role Phone Shaikh NITHIN Main Primary Care Provider [phone] Shaikh NITHIN Main Primary Care Provider [phone] Molina De Anda MD Primary Care Provider [phone] Valerie Groves MACHINE CLOTHING MAN Unavailable [phone] Reason for Visit * Reason Comments Med Refill Encounter Details Date Type Department Care Team (Late st Contact Info) Description 10/16/2023 Refill [facility] [address] [place] [address] Shaikh Main MD [address] [place] [address] Psychophysiological insomnia Social History Tobacco Use Types [...] How often do you attend chur or protestant services? Never 08/07/2023 Do you belong to any clubs o r organizations such as muslim groups, unions, fraternal or athletic groups, or [...] Recorded Patient Health Questionnaire-2 Score 6 08/03/2023 [facility] [place] [facility] Occupat ional Health - Occupational Stress [...] slept in a usp (including now)? No 08/07/2023 Comments Unknown Sex and Gender Information Value Date Recorded Sex Assigned at Not on file Legal Sex Female 7:47 PM EDT Gender Identity Not on file Sexual Orientation Not on file documented as of this encounter Plan of Treatment Upcoming Encounters Date Type Department Care Team (Late st Contact Info) Description 01/22/2025 9:00 AM EDT Office Visit [facility] [address] [facility] [address] [place] [address] Karime Dias, PMHNP- [address] [facility] [address] [place] [address] 02/05/2025 3:20 PM EDT Office Visit [facility] [address] [place] [address] Pascale Arana NP [address] [place] [address] documented as of this encounter Goals Goal Patient Goal Type Associated Problems Recent Progress Patient-Stated? Author Help patient manage antidepressant medication Care Plan Patient on antidepressant monitoring plan No Shaikh Main MD documented as of this encounter Visit Diagnoses Diagnosis Psychophysiological insomnia Persistent disorder of initiating or maintaining sleep documented in this encounter Additional Health Concerns Active Problems Noted Date Diagnosed Date Patient on antidepressant monitoring plan 2023 Assessment Noted Time PHQ-9 Depression Total Score: 23 024 4:27 PM EST documented as of this encounter Care Teams Grocery Supervisor Relationship Specialty Start Date End Date Shaikh Main MD PCP - General Internal Medicine 04/20/23 01/07/24 Shaikh Main MD [address] [place] [address] PCP - General Internal Medicine 01/08/24 02/20/24 Molina De Anda MD [address] [place] [address] PCP - General Family Medicine 02/21/24 Valerie Groves NP [address] [place] [address] Nurse Practitioner Family Medicine 02/21/24 documented as of this encounter
--- OUTSIDE RECORDS SUMMARY | 2025-01-14 12:45 | XMS_ITS | Clinical Summary ---
Author Organization [employer] Address [id number] [address] [place] [address] Care Team Providers Care Comic Illustrator Name Role Phone No Pcp, No Pcp Primary Care Provider Unavailabl e Medications sod sulf-pot chloride-mag sulf 1.479-0.188- 0.225 gram tablet See instructional sheet given by office. Patient was given a [employer] coupon voucher to use, this is not to be ran through patients insurance. 24 tablet 3 Active Social History Tobacco Use Types Packs/Day Years [...] on file Sexual Orientation Not on file Plan of Treatment Health Maintenance Due Date Last Done Comments Depression Screening 1983 Tobacco Screening 1983 Adult BMI Screening 1989 DTaP,Tdap and Td Vaccines (1 - Tdap) 1990 Pap Smear 1992 Zoster (Shingles) Vaccine (1 of 2) 2021 Influenza Vaccine 03/24/2025 Medical Devices Not on file Insurance [employer] Care Teams Comic Illustrator Relationship Specialty Start Date End Date No Pcp, No Pcp SEGUN Stephen [address] PCP - General Family Medicine 11/21/18
--- OUTSIDE RECORDS SUMMARY | 2025-01-14 12:45 | XMS_ITS | Encounter Summary ---
Author Organization [facility] Address [address] [place] [address] Care Team Providers Care Central Supply Supervisor Name Role Phone Molina De Anda MD Primary Care Provider [phone] Valerie Groves OUTDOOR EMERGENCY CARE TECHNICIAN Unavailable [phone] Encounter Details Date Type Department Care Team (Late st Contact Info) Description 01/06/2025 Abstract [facility] [address] [place] [address] Pascale Arana NP [address] [place] [address] Social History Tobacco Use Types Packs/Day Years [...] How often do you attend chur or worship services? Never 08/07/2023 Do you belong to [...] Recorded Patient Health Questionnaire-2 Score 0 04/10/2024 [facility] Questionnaire Answer Date Recorded [...] 01/22/2025 9:00 AM EDT Office Visit [facility] [address] [facility] [address] [place] [address] Karime Dias [facility] [address] [facility] [address] [place] [address] 02/05/2025 3:20 PM EDT Office Visit [facility] [address] [place] [phone] Pascale Arana NP [address] [place] [address] documented as of this encounter Goals Goal [...] documented as of this encounter Care Teams Central Supply Supervisor Relationship Specialty Start Date End Date Molina De Anda MD [address] [place] [address] PCP - General Family Medicine 02/21/24 Valerie Groves NP [address] [place] [address] Nurse Practitioner Family Medicine 02/21/24 documented as of this encounter
--- OUTSIDE RECORDS SUMMARY | 2025-01-14 12:45 | XMS_ITS | Encounter Summary ---
Author Organization [facility] Address [address] [place] [address] Care Team Providers Care Brush Sander Name Role Phone Molina De Anda MD Primary Care Provider [phone] Valerie Groves BANQUET DIRECTOR Unavailable Encounter Details Date Type Department Care Team (Late st Contact Info) Description 01/06/2025 [facility]phone [facility] [address] [place] [address] Pascale Arana NP [address] [place] [address] Social History Tobacco Use Types Packs/Day Years [...] How often do you attend chur or caodaism services? Never 08/07/2023 Do you belong to any clubs o r organizations such as hoahaoism groups, unions, fraternal or athletic groups, or [...] Recorded Patient Health Questionnaire-2 Score 0 04/10/2024 [facility] Questionnaire Answer Date [...] place to sleep or slept in a prison (including now)? No 08/07/2023 Comments Unknown Sex and Gender Information Value Date Recorded Sex Assigned at Not on file Legal Sex Female 7:47 PM EDT Gender Identity Not on file Sexual Orientation Not on file documented as of this encounter Miscellaneous Notes * Telephone Encounter - Pascale Arana NP - 01/06/2025 6:12 PM EDT Pt states she was not contacted about her iron infusion can we check with [facility] about this [place] documented in this encounter Plan of Treatment Upcoming Encounters Date Type Department Care Team (Late st Contact Info) Description 01/22/2025 9:00 AM EDT Office Visit [facility] [address] [facility] [address] [place] [address] Karime Dias PMHNP-BC [address] [facility] [address] [place] [address] 02/05/2025 3:20 PM EDT Office Visit [facility] [address] [place] [address] Pascale Arana NP [address] [place] [address] documented as of this encounter Goals Goal [...] documented as of this encounter Care Teams Brush Sander Relationship Specialty Start Date End Date Molina De Anda MD [address] [place] [address] PCP - General Family Medicine 02/21/24 Valerie Groves NP [address] [place] [address] Nurse Practitioner Family Medicine 02/21/24 documented as of this encounter
--- OUTSIDE RECORDS SUMMARY | 2025-01-14 12:45 | XMS_ITS | Encounter Summary ---
Author Organization [facility] Address [address] [place] [address] Care Team Providers Care Software Test Analyst Name Role Phone Molina De Anda MD Primary Care Provider [phone] Valerie Groves SHOWER ATTENDANT Unavailable [phone] Encounter Details Date Type Department Care Team (Late st Contact Info) Description 01/07/2025 Orders Only [facility] [address] [place] [address] Pascale Arana NP [address] [place] [address] B12 deficiency (Primary Dx); Iron deficiency anemia secondary to inadequate dietary iron intake Social History Tobacco Use Types Packs/Day Years [...] How often do you attend chur or yarsani services? Never 08/07/2023 Do you belong to any clubs o r organizations such as jew groups, unions, fraternal or athletic groups, or [...] Recorded Patient Health Questionnaire-2 Score 0 04/10/2024 [facility] of Occupat ional Health [...] Office Visit NOM[facility] [address] [facility] [address] [place] [address] Karime Dias [facility] [address] [facility] [address] [place] [address] 02/05/2025 3:20 PM EDT Office Visit [facility] [address] [place] [address] Pascale Arana NP [address] [place] [address] Scheduled Orders Name Type Priority Associated Diagnoses Orde r Schedule CBC and differential Lab Routine Iron deficiency anemia secondary to inadequate dietary iron intake Expected: 01/07/2025 (Approximate), Expires: 01/07/2026 Vitamin B12 Lab Routine B12 deficiency Iron deficiency anemia secondary to inadequate dietary iron intake Expected: 01/07/2025 (Approximate), Expires: 01/07/2026 Iron + transferrin + TIBC Lab Routine Iron deficiency anemia secondary to inadequate dietary iron intake Expected: 01/07/2025 (Approximate), Expires: 01/07/2026 Ferritin Lab Routine Iron deficiency anemia secondary to inadequate dietary iron intake Expected: 01/07/2025 (Approximate), Expires: 01/07/2026 documented as of this encounter Goals Goal Patient Goal Type Associated Problems Recent Progress Patient-Stated? Author Help patient manage antidepressant medication Care Plan Patient on antidepressant monitoring plan No Shaikh Main MD documented as of this encounter Visit Diagnoses Diagnosis B12 deficiency- Primary Iron deficiency anemia secondary to inadequate dietary iron intake documented in this encounter Additional Health Concerns Active Problems Noted Date Diagnosed Date Patient on antidepressant monitoring plan 2023 Assessment Noted Time PHQ-9 Depression Total Score: 23 024 4:27 PM EST documented as of this encounter Care Teams Software Test Analyst Relationship Specialty Start Date End Date Molina De Anda MD [address] [place] [address] PCP - General Family Medicine 02/21/24 Valerie Groves NP [address] [place] [address] Nurse Practitioner Family Medicine 02/21/24 documented as of this encounter
--- OUTSIDE RECORDS SUMMARY | 2025-01-14 12:45 | XMS_ITS | Encounter Summary ---
Author Organization [facility] Address [address] [place] [address] Care Team Providers Care Stuntman Name Role Phone Molina De Anda MD Primary Care Provider [phone] Valerie Groves GROUP ROOMS COORDINATOR Unavailable [phone] Encounter Details Date Type Department Care Team (Late st Contact Info) Description 11/14/2024 Orders Only [facility] [address] [place] [address] Pascale Arana NP [address] [place] [address] UTI (urinary tract infection), uncomplicated (Primary Dx) Social History Tobacco Use Types Packs/Day Years [...] How often do you attend chur or sikh services? Never 08/07/2023 Do you belong to any clubs o r organizations such as zoroastrianism groups, unions, fraternal or athletic groups, or [...] Recorded Patient Health Questionnaire-2 Score 0 04/10/2024 [facility]at ional Health - Occupational Stress [...] place to sleep or slept in a senior care (including now)? No 08/07/2023 Comments Unknown Sex and Gender Information Value Date Recorded Sex Assigned at Not on file Legal Sex Female 7:47 PM EDT Gender Identity Not on file Sexual Orientation Not on file documented as of this encounter Plan of Treatment Upcoming Encounters Date Type Department Care Team (Late st Contact Info) Description 01/22/2025 9:00 AM EDT Office Visit [facility] [address] [facility] [address] [place] [address] Karime Dias [facility] [address] [facility] [address] [place] [address] 02/05/2025 3:20 PM EDT Office Visit [facility] [address] [place] [place] [address] Pascale Arana NP [address] [place] [address] Scheduled Orders Name Type Priority Associated Diagnoses Orde r Schedule URINARY TRACT INFECTION (HTRX) Lab Routine UTI (urinary tract infection), uncomplicated Expected: 11/14/2024 (Approximate), Expires: 11/14/2025 documented as of this encounter Goals Goal Patient Goal Type Associated Problems Recent Progress Patient-Stated? Author Help patient manage antidepressant medication Care Plan Patient on antidepressant monitoring plan Shaikh Morel MD documented as of this encounter Visit Diagnoses Diagnosis UTI (urinary tract infection), uncomplicated- Primary Urinary tract infection, site not specified documented in this encounter Additional Health Concerns Active Problems Noted Date Diagnosed Date Patient on antidepressant monitoring plan 2023 Assessment Noted Time PHQ-9 Depression Total Score: 23 024 4:27 PM EST documented as of this encounter Care Teams Stuntman Relationship Specialty Start Date End Date Molina De Anda MD [address] [place] [address] PCP - General Family Medicine 02/21/24 Valerie Groves NP [address] [place] [address] Nurse Practitioner Family Medicine 02/21/24 documented as of this encounter
--- OUTSIDE RECORDS SUMMARY | 2025-01-14 12:45 | XMS_ITS | Encounter Summary ---
Author Organization [facility] Address [address] [place] [address] Care Team Providers Care Conference Center Manager Name Role Phone Molina De Anda MD Primary Care Provider [phone] Valerie Groves JACQUARD LOOM CARPET WEAVER Unavailable [phone] Encounter Details Date Type Department Care Team (Late st Contact Info) Description 01/08/2025 [facility] [address] [place] [address] Pascale Arana NP [address] [place] [address] Social History Tobacco Use Types Packs/Day Years [...] How often do you attend chur or mosque services? Never 08/07/2023 Do you belong to any clubs o r organizations such as christian groups, unions, fraternal or athletic groups, or [...] Recorded Patient Health Questionnaire-2 Score 0 04/10/2024 [facility] Questionnaire Answer Date [...] place to sleep or slept in a snf (including now)? No 08/07/2023 Comments Unknown Sex and Gender Information Value Date Recorded Sex Assigned at Not on file Legal Sex Female 7:47 PM EDT Gender Identity Not on file Sexual Orientation Not on file documented as of this encounter Miscellaneous Notes * Telephone Encounter - LIZANDRO PICKARD - 01/08/2025 3:10 PM EDT Text Nurse Informaticist Hi, this is Jeremy with a disability calling on a recorded line and I am calling on [facility] and the patient that we have is share a school that is see that is so ly date of is [phone]. We are practicing a attending position statement, behavioral health for your completion, so kindly complete and return it. And if forms are returned, no phone call is needed. If you have any questions and to concern, you can call us at [phone]. Again, that is [phone] from 8AM. To 8PM. Eastern Standard Time, Monday till Monday. And you could reference this call to claim number [id number]. Again, that is [phone] when returning the call. Thank you so much and have a good day. documented in this encounter Plan of Treatment Upcoming Encounters Date Type Department Care Team (Late st Contact Info) Description 01/22/2025 9:00 AM EDT Office Visit [facility] [address] [place] [address] [place] [address] DiasKarime boo, PMHNP-BC [address] [place] [address] [place] [address] 02/05/2025 3:20 PM EDT Office Visit [facility] [address] [place] [address] Pascale Arana NP [address] [place] [address] documented as of this encounter Goals Goal [...] documented as of this encounter Care Teams Conference Center Manager Relationship Specialty Start Date End Date Molina De Anda MD [address] [place] [address] PCP - General Family Medicine 02/21/24 Valerie Groves NP [address] [place] [address] Nurse Practitioner Family Medicine 02/21/24 documented as of this encounter
--- OUTSIDE RECORDS SUMMARY | 2025-01-14 12:45 | XMS_ITS | Patient Health Record ---
Author Organization [facility] in [place] Address [address] [place] [address] Care Team Providers Care Glazing Department Supervisor Name Role Phone None, Unknown or Primary Care Provider Unavailab Tawana Lee [phone] Allergies Allergen (clinical drug ingredient) Drug/Non Drug Allergy documented on EMR Reaction Allergy Type Onset Date Status Penicillin rash Drug Allergy Active Results Component Value Reference Range Notes XR foot LT min 3V (Not yet r eviewed by provider) Interpretation: Performing Lab: Notes/Report: Source Facility: [place] [address] XRay Report Signed Patient: KALYN RUTHERFORD MR#: [id number] : 1970 Acct:[id number] Age/Sex: 54 / F ADM Date: 09/04/24 Loc: EC Attending Dr: Tawana Hoff D.P.M. Ordering Physician: Tawana Hoff D.P.M. Date of Service: 09/04/24 Procedure(s): XR foot LT min 3V Accession Number(s): [id number] cc: NASH LAMAR Peter D.P.M. [facility] [place] [address] Patient Name: KALYN RUTHERFORD MRN: [id number] date: 1970 Sex: F Assigned Patient Location: EC Current Patient Location: Accession/Order Number: [id number] Exam Date: 09/04/2024 15:53 Report Date: 09/05/2024 [...] calcaneal plantar spur; unchanged. Electronically authenticated by: ZACH ALSTON Date: 09/05/2024 10:16 Dictated By: Zach Alston M.D. Signed By: 09/05/24 1019 DD/ 1016 TD/TT: International Trade Teacher: [place] [address] XRay Report Signed Patient: MARTY RUTHERFORD MR#: [id number] : 1970 Acct:[id number] Age/Sex: 54 / F ADM Date: 09/04/24 Loc: EC Attending Dr: Tawana Hoff D.P.M. Ordering Physician: Tawana Hoff D.P.M. Date of Service: 09/04/24 Procedure(s): XR foot LT min 3V Accession Number(s): [id number] cc: PAUL LAMAR; Tawana Hoff D.P.M. [facility] [place] [id number] Patient Name: KALYN RUTHERFORD MRN: [id number] date: 1970 Sex: F Assigned Patient Location: Current Patient Location: Accession/Order Numb er: [id number] Exam Date: 09/04/2024 15:53 Report Date: 09/05/2024 10:16 At the request of: TAWANA HOFF Procedure: XR foot LT min 3V PROCEDURE: XR foot LT min 3V HISTORY: LEFT FOOT PAIN COMPARISON: XR foot left 05/31/2022 . FINDINGS: BONES:Prior mechanic and welder al fusion of the second third tarsal-metatarsal joints; no appreciable hardware fracture loosening. Large calcaneal plantar spur. Moderate flattening of the pl lashay arch. No bone fracture, dislocation, or lesion SOFT TISSUES:No visi ble soft tissue swelling. EFFUSION:None visible. OTHER: Negative. X R/XR foot LT min 3V IMPRESSION: 1. Stable surgical c hanges without is of hardware failure or change in alignment. 2. Moderate pes plan us and large calcaneal plantar spur; unchanged. Electronically authe nticated by: ZACH ALSTON Date: 09/05/2024 10:16 Dictated By: Zach Alston M.D. Signed By: 09/05/24 1019 DD/ 1016 TD/TT: International Trade Teacher: CT FOOT LT WO CON (Not yet r eviewed by provider) Interpretation: Performing Lab: Notes/Report: Source Facility: [place] [address] CT Scan Report Signed Patient: KALYN RUTHERFORD MR#: [id number] : 1970 Acct:[id number] Age/Sex: 54 / F ADM Date: 09/09/24 Loc: CT Attending Dr: Tawana Hoff D.P.M. Ordering Physician: Tawana Hoff D.P.M. Date of Service: 09/09/24 Procedure(s): CT foot LT wo con Accession Number(s): [id number] cc: ANGEL LUIS LAMAR [place] [address] Patient Name: KALYN RUTHERFORD MRN: [id number] date: 1970 Sex: F Assigned Patient Location: CT Current Patient Location: CT Accession/Order Number: [id number] Exam Date: 09/09/2024 15:56 Report Date: 09/09/2024 [...] osteoarthritis of the midfoot. Electronically authenticated by: AMOL MENESES Date: 09/09/2024 17:39 Dictated By: Amol Meneses M.D. Signed By: 09/09/241741 DD/ 38 TD/TT: International Trade Teacher: [place] [address] CT Scan Report Signed Patient: MARTY RUTHERFORD MR#: [id number] : 1970 Acct:[id number] Age/Sex: 54 / F ADM Date: 09/09/24 Loc: CT Attending Dr: Tawana Hoff D.P.M. Ordering Physician: Tawana Hoff D.P.M. Date of Service: 09/09/24 Procedure(s): CT foot LT wo con Accession Number(s): [id number] cc: ANGEL LUIS LAMAR [place] [address] Patient Name: KALYN RUTHERFORD MRN: [id number] date: 1970 Sex: F Assigned Patient Location: CT Current Patient Location: CT Accession/Order Numb er: [id number] Exam Date: 09/09/2024 15:56 Report Date: 09/09/2024 17:39 At the request of: TAWANA HOFF Procedure: CT foot LT wo con CT left foot WITHOUT IV CONTRAST HISTORY: Left foot DJD COMPARISON: There ar e no prior studies available for comparison. TECHNIQUE: Axial CT images of the left foot was obtained without IV contrast. Coronal and sagittal reformats were constructed. FINDINGS: OSSEOUS STRUCTURES: There is osseous demineralization. No acute fracture. Intact plate and scr ew fixation hardware across the second and third TMT joints. JOINTS: No acute abn ormality. There is moderate to severe osteoarthritis of the midfoot. SUBCUTANEOUS/SOFT TI SSUES: There is mild soft tissue edema in the dorsal midfoot. No measurab le fluid collection. No gas. .. C T/CT foot LT wo con IMPRESSION: 1. No acute osseous or joint abnormality. 2. Intact midfoot hardware. 3. Moderate to sever e osteoarthritis of the midfoot. Electronically authe nticated by: AMOL MENESES Date: 09/09/2024 17:39 Dictated By: Amol Meneses M.D. Signed By: 09/09/241741 DD/ 38 TD/TT: International Trade Teacher: Reason For Referral No Information Medications Medication SIG (Take, Route, Frequency, Duration) Notes Start Date End Date Status Abilify Active Tolterodine Tartrate ER 4 MG 1 capsule Orally Once a day Active Ambien Active CeleXA Active ARIPiprazole 10 MG 1 tablet Orally Once a day Active Detrol Active Citalopram Hydrobromide 40 MG 0.5 tablet Orally Once a day Active Lansoprazole 30 MG 1 tablet Orally Once a day Active Gabapentin Active Prevacid Active Meloxicam 15 MG 1 tablet Orally Once a day for 30 days 09/04/2024 Active Social History Tobacco Use: Social History [...] Problem Status W/U Status Risk Notes Problem [id number] Primary osteoarthritis , left ankle and foot (M19.072) Active confirmed Problem Gastroesophageal reflux disease (279906230) GERD (gastroesophag eal reflux disease) (K21.9) Active confirmed Problem Left foot pain (M79.672) Active confirmed Problem Anxiety depression (087486372) Anxiety with depression (F41.8) Active confirmed Vital Signs Heart Rate 85 /min 09/18/2024 Respiratory Rate 16 /min 09/18/2024 Oximetry 97 % 09/18/2024 Encounters Encounter Location Date Provider Diagnosis [facility] [address] [place] [address] [place] [address] 09/04/2024 Tawana Hoff Pain due to internal orthopedic prosthetic devices, implants and grafts, initial encounter T84.84XA ; Primary osteoarthritis, left ankle and foot M19.072 and Left foot pain M79.672 [facility] [address] [place] [address] [place] [address] 09/18/2024 Tawana Hoff 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.0 ; Primary osteoarthritis, left ankle and foot M19.072 and Pain due to internal orthopedic prosthetic devices, implants and grafts, initial encounter T84.84XA [facility] [address] [place] [address] [place] [address] 09/04/2024 Tawana Hoff Assessments Encounter Date Diagnosis (ICD Code) Assessment Notes Treatment Notes Treatment Clinical Notes Section Notes 09/04/2024 Primary osteoarthritis, left ankle and foot (ICD-10 - M19.072) 09/04/2024 Pain due to internal orthopedic prosthetic [...] the phone or at her follow-up appointment 09/18/2024 Primary osteoarthritis, left ankle and foot (ICD-10 - M19.072) 09/18/2024 Pseudarthrosis after fusion or arthrodesis (ICD-10 [...] was given the new office number. 09/18/2024 Pain due to internal orthopedic prosthetic devices, implants and grafts, initial encounter (ICD-10 - T84.84XA) 09/04/2024 Left foot pain (ICD-10 - M79.672) Plan Of Treatment Pending Test Test Name Order Date XR Foot LT (3 views) * 09/04/2024 CT Foot LT w/o contrast * (Optional 3D R endering) 09/04/2024 CT FOOT LT WO CON 09/09/2024 XR foot LT min 3V 09/05/2024 Insurance Providers Payer Name Payer Address Payer Phone Subscriber Number Group Number Insured Name Patient Relationship to Insured Coverage Start Date Coverage End Date [employer] [facility] [address] [place] [address] [id number] Kalyn Rutherford Self - patient is the insured Medical (General) History Medical History History ICD Code GERD (gastroesophageal reflux disease) K 21.9 Anxiety F41.9 Arthritis M19.90 Nicotine dependence F17.200 Bipolar depression F31.9 Overactive bladder N32.81 Peripheral arterial disease I73.9 Surgical History Surgery Date(Month/Year) posterior colporrhaphy repair, enterocel e repair 02/15/2021 gastric bypass 08/2019 tubal ligation cholecystectomy
--- OUTSIDE RECORDS SUMMARY | 2025-01-14 12:45 | XMS_ITS | Encounter Summary ---
Author Organization [facility] Address [address] [place] [address] Care Team Providers Care White Goods Appliance Tech Name Role Phone Molina De Anda MD Primary Care Provider [phone] Valerie Groves AIRCRAFT MOTOR MECHANIC Unavailable [phone] Reason for Visit * Reason Onset Date Comments Med Refill 11/18/2024 Encounter Details Date Type Department Care Team (Late st Contact Info) Description 11/18/2024 Refill [facility] [address] [place] [address] Molina De Anda MD [address] [place] [address] Plantar fasciitis of right foot (Primary Dx) Social History Tobacco Use Types [...] How often do you attend chur or sabianist services? Never 08/07/2023 Do you belong to any clubs o r organizations such as episcopal groups, unions, fraternal or athletic groups, or [...] Recorded Patient Health Questionnaire-2 Score 0 04/10/2024 [facility] - [...] place to sleep or slept in a nursing home (including now)? No 08/07/2023 Comments Unknown Sex [...] EDT Office Visit [facility] [address] [facility] [address] [place] [address] [facility] [address] [facility] [address] [place] [address] 02/05/2025 3:20 PM EDT Office Visit [facility] [address] [place] [address] Pascale Arana NP [address] [place] [address] documented as of this encounter Goals Goal Patient Goal Type Associated Problems Recent Progress Patient-Stated? Author Help patient manage antidepressant medication Care Plan Patient on antidepressant monitoring plan No Shaikh Main MD documented as of this encounter Visit Diagnoses Diagnosis Plantar fasciitis of right foot- Primary documented in this encounter Additional Health Concerns Active Problems Noted Date Diagnosed Date Patient on antidepressant monitoring plan 2023 Assessment Noted Time PHQ-9 Depression Total Score: 23 024 4:27 PM EST documented as of this encounter Care Teams White Goods Appliance Tech Relationship Specialty Start Date End Date Molina De Anda MD [address] [place] [address] PCP - General Family Medicine 02/21/24 Valerie Groves NP [address] [place] [address] Nurse Practitioner Family Medicine 02/21/24 documented as of this encounter
--- OUTSIDE RECORDS SUMMARY | 2025-01-14 12:45 | XMS_ITS | Encounter Summary ---
Author Organization [facility] Address [address] [place] [address] Care Team Providers Care Greige Mender Name Role Phone Shaikh NITHIN Main Primary Care Provider [phone] Shaikh NITHIN Main Primary Care Provider [phone] Molina De Anda MD Primary Care Provider [phone] Valerie Groves CUT OUT STITCHER Unavailable [phone] Encounter Details Date Type Department Care Team (Late st Contact Info) Description 11/20/2023 Orders Only [facility] [address] [place] [address] Shaikh Main MD [address] [place] [address] Social History Tobacco Use Types Packs/Day Years [...] How often do you attend chur or taoist services? Never 08/07/2023 Do you belong to [...] Date Recorded Patient Health Questionnaire-2 Score 0 11/13/2023 [facility] - Occupational Stress Questionnaire Answer Date [...] 01/22/2025 9:00 AM EDT Office Visit [facility] [address] [facility] [address] [place] [address] Karime Dias PMHNP- [address] [facility] [address] [place] [address] 02/05/2025 3:20 PM EDT Office Visit [facility] [address] [place] [address] Pascale Arana NP [address] [place] [address] documented as of this encounter Goals Goal [...] Assessment Noted Time PHQ-9 Depression Total Score: 024 4:27 PM EST documented as of this encounter Care Teams Greige Mender Relationship Specialty Start Date End Date Shaikh Main MD PCP - General Internal Medicine 04/20/23 01/07/24 Shaikh Main MD [address] [place] [address] PCP - General Internal Medicine 01/08/24 02/20/24 Molina De Anda MD [address] [place] [address] PCP - General Family Medicine 02/21/24 Valerie Groves NP [address] [place] [address] Nurse Practitioner Family Medicine 02/21/24 documented as of this encounter
--- OUTSIDE RECORDS SUMMARY | 2025-01-14 12:45 | XMS_ITS | Encounter Summary ---
Author Organization [facility] Address [address] [place] [address] Care Team Providers Care Water Plant Pump Operator Supervisor Name Role Phone Molina De Anda MD Primary Care Provider [phone] Valerie Groves PRODUCTION CONTROL EXPERT Unavailable [phone] Encounter Details Date Type Department Care Team (Late st Contact Info) Description 01/06/2025 Abstract [facility] [address] [place] [address] Pascale Arana NP [address] [place] [address] Social History Tobacco Use Types Packs/Day Years [...] How often do you attend chur or latter-day services? Never 08/07/2023 Do you belong to any clubs o r organizations such as bahai groups, unions, fraternal or athletic groups, or [...] Health Questionnaire-2 Score 0 04/10/2024 [facility] Answer Date Recorded [...] place to sleep or slept in a jail (including now)? No 08/07/2023 Comments Unknown Sex [...] Office Visit [facility] [address] [facility] [address] [place] [address] Karime Dias [facility] [address] [facility] [address] [place] [address] 02/05/2025 3:20 PM EDT Office Visit [facility] [address] [place] [address] Pascale Arana NP [address] [place] [address] documented as of this encounter Goals Goal [...] documented as of this encounter Care Teams Water Plant Pump Operator Supervisor Relationship Specialty Start Date End Date Molina De Anda MD [address] [place] [address] PCP - General Family Medicine 02/21/24 Valerie Groves NP [address] [place] [address] Nurse Practitioner Family Medicine 02/21/24 documented as of this encounter
--- OUTSIDE RECORDS SUMMARY | 2025-01-14 12:45 | XMS_ITS | Encounter Summary ---
Author Organization [facility] Address [address] [place] [address] Care Team Providers Care Medical Staff Specialist Name Role Phone Molina De Anda MD Primary Care Provider Valerie Groves AIR VALVE MECHANIC Unavailable [phone] Reason for Visit * Reason Comments Med Refill Encounter Details Date Type Department Care Team (Late st Contact Info) Description 01/14/2025 Refill [facility] [address] [place] [address] Pascale Arana NP [address] [place] [address] URTI (acute upper respiratory infection); Non-recurrent acute suppurative otitis media of both ears without spontaneous rupture of tympanic membranes Social History Tobacco Use Types Packs/Day Years [...] 08/07/2023 How often do you attend chur [employer] or mormonism services? Never 08/07/2023 Do you belong to any clubs o r organizations such as alevism groups, unions, fraternal or athletic groups, or [...] Questionnaire-2 Score 0 04/10/2024 [facility] ional Health - Occupational [...] place to sleep or slept in a intermediate (including now)? No 08/07/2023 Comments Unknown Sex [...] [facility] [address] [facility] [address] [place] [address] Karime Dias [facility] [address] [facility] [address] [place] [address] 02/05/2025 3:20 PM EDT Office Visit [facility] [address] [place] [address] Pascale Arana NP [address] [place] [address] documented as of this encounter Goals Goal Patient Goal Type Associated Problems Recent Progress Patient-Stated? Author Help patient manage antidepressant medication Care Plan Patient on antidepressant monitoring plan No Shaikh Main MD documented as of this encounter Visit Diagnoses Diagnosis URTI (acute upper respiratory infection) Acute upper respiratory infections of unspecified site Non-recurrent acute suppurative otitis media of both ears without spontaneous rupture of tympanic membranes documented in this encounter Additional Health Concerns Active Problems Noted Date Diagnosed Date Patient on antidepressant monitoring plan 2023 Assessment Noted Time PHQ-9 Depression Total Score: 23 024 4:27 PM EST documented as of this encounter Care Teams Medical Staff Specialist Relationship Specialty Start Date End Date Molina De Anda MD [address] [place] [address] PCP - General Family Medicine 02/21/24 Valerie Groves NP [address] [place] [address] Nurse Practitioner Family Medicine 02/21/24 documented as of this encounter
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
--- OUTSIDE RECORDS SUMMARY | 2025-01-14 12:45 | XMS_ITS | Encounter Summary ---
Author Organization [facility] Address [address] [place] [address] Care Team Providers Care Laser Engineer Name Role Phone Molina De Anda MD Primary Care Provider [phone] Valerie Groves TRAFFIC DIVISION COMMANDING OFFICER Unavailable [phone] Encounter Details Date Type Department Care Team (Late st Contact Info) Description 11/18/2024 Orders Only [facility] [address] [place] [address] Pascale Arana NP [address] [place] [place] [address] Social History Tobacco Use Types Packs/Day Years [...] How often do you attend chur or yazidi services? Never 08/07/2023 Do you belong to any clubs o r organizations such as yarsani groups, unions, fraternal or athletic groups, or [...] Recorded Patient Health Questionnaire-2 Score 0 04/10/2024 [facility] - Occupational [...] place to sleep or slept in a long term (including now)? No 08/07/2023 Comments Unknown Sex [...] [facility] [address] [facility] [address] [place] [address] Karime Dias [facility] [address] [facility] [address] [place] [address] 02/05/2025 3:20 PM EDT Office Visit [facility] [address] [place] [address] Pascale Arana NP [address] [place] [address] documented as of this encounter Goals Goal Patient Goal Type Associated Problems Recent Progress Patient-Stated? Author Help patient manage antidepressant medication Care Plan Patient on antidepressant monitoring plan No Shaikh Main MD documented as of this encounter Procedures Procedure Name Priority Date/Time Associated Diagnosis Comments SCANNED LABS Routine 11/18/2024 2:41 PM EDT documented in this encounter Results * SCANNED LABS (11/18/2024 2:41 PM EDT) us Pascale Sumit TRAFFIC DIVISION COMMANDING OFFICER LAB CHG PERFORMABLES Final Resu lt documented in this encounter Visit Diagnoses Not on filedocumented in this encounter Additional Health Concerns Active Problems Noted Date Diagnosed Date Patient on antidepressant monitoring plan 2023 Assessment Noted Time PHQ-9 Depression Total Score: 23 024 4:27 PM EST documented as of this encounter Care Teams Laser Engineer Relationship Specialty Start Date End Date Molina De Anda MD [address] [place] [address] PCP - General Family Medicine 02/21/24 Valerie Groves NP [address] [place] [address] Nurse Practitioner Family Medicine 02/21/24 documented as of this encounter
--- OUTSIDE RECORDS SUMMARY | 2025-01-14 12:45 | XMS_ITS | Encounter Summary ---
Author Organization [facility] Address [address] [place] [address] Care Team Providers Care Senior Manager Mergers & Acquisitions Name Role Phone Molina De Anda MD Primary Care Provider [phone] Valerie Groves MANAGER PRODUCT DESIGN Unavailable [phone] Reason for Visit * Reason Onset Date Comments Vaginitis/Bacterial Vaginosis 01/07/2025 Encounter Details Date Type Department Care Team (Late st Contact Info) Description 01/07/2025 [facility] [address] [place] [address] Pascale Arana NP [address] [place] [address] Vaginitis/Bacterial Vaginosis Social History Tobacco Use Types Packs/Day Years [...] How often do you attend chur or tenriism services? Never 08/07/2023 Do you belong to [...] Recorded Patient Health Questionnaire-2 Score 0 04/10/2024 [facility]at ional [facility] - [...] encounter Miscellaneous Notes * Telephone Encounter - Nupur Jm - 01/07/2025 1:43 PM EDT Patient called stating she will have some FMLA paperwork and some other kind of paperwork for you to fill out for her, which she will bring in as soon as she gets them. However she wanted to know if everything she has going on (she did not go into detail with me) if that could cause a yeast infection. She would like you or Natacha to call her to discuss this and see if that is what she has and ifso can you call something in for her. JN documented in this encounter Plan of Treatment Upcoming Encounters Date Type Department Care Team (Late st Contact Info) Description 01/22/2025 9:00 AM EDT Office Visit [facility] [address] [facility] [address] [place] [address] Dias Karime, PMHNP- [address] [facility] [address] [place] [address] 02/05/2025 3:20 PM EDT Office Visit [facility] [address] [place] [address] Pascale Arana NP [address] [place] [address] documented as of this encounter Goals Goal [...] documented as of this encounter Care Teams Senior Manager Mergers & Acquisitions Relationship Specialty Start Date End Date Molina De Anda MD [address] [place] [address] PCP - General Family Medicine 02/21/24 Valerie Groves NP [address] [place] [address] Nurse Practitioner Family Medicine 02/21/24 documented as of this encounter
[2025-01-14 12:58] LABS: Basophils Absolute Auto 0.1 10^3/uL (0.0-0.1); Eosinophils Absolute Auto 0.4 10^3/uL (0.0-0.7); Eosinophils Percent Auto 6.9 % (0.9-7.0); Hematocrit 36.2 % (36.0-48.0); Hemoglobin 11.8 g/dL (12.0-16.0); Immature Granulocytes Abs Auto 0.01 10^3/uL (0.00-0.03); Immature Granulocytes Pct Auto 0.2 % (0.0-0.5); Lymphocytes Absolute Auto 1.9 10^3/uL (1.2-3.8); Mean Corpuscular HGB Conc 32.6 g/dL (29.9-35.2); Mean Corpuscular Hemoglobin 28.6 pg (26.7-34.0); Mean Corpuscular Volume 87.9 fL (81.0-99.0); Mean Platelet Volume 9.6 fL (9.5-13.5); Monocytes Absolute Auto 0.3 10^3/uL (0.3-0.8); Monocytes Percent Auto 5.4 % (1.7-12.0); Neutrophils Absolute Auto 3.3 10^3/uL (1.4-6.5); Neutrophils Percent Auto 54.5 % (43.0-75.0); Platelet Count 273 10^3/uL (150-450); Red Blood Count 4.12 10^6/uL (4.20-5.40); Red Cell Distribution Width 15.6 % (11.0-15.0); White Blood Count 6.1 10^3/uL (4.0-11.0)
[2025-01-15 04:07] LABS: Vitamin B12 >2000 pg/mL (232-1245)
[2025-01-15 05:07] LABS: Transferrin 296 mg/dL (192-364)
== END 2025-01-14 12:40 | disposition home or self-care (01) ==
LOC: LAB 12:41
PROVIDERS: PCP Nurse Practitioner; Visit Provider Nurse Practitioner
DX: E53.8 Deficiency of other specified B group vitamins (principal); D50.8 Other iron deficiency anemias
CPT/HCPCS: 36415; 82607; 82728; 83540; 83550; 84466; 85025

== ENCOUNTER 2025-01-20 12:47 | Outpatient (OUT) | payer OTHER, SELFPAY ==
--- OUTSIDE RECORDS SUMMARY | 2019-11-19 07:15 | XMS_ITS | Continuity of Care Document ---
Author Organization [facility] Address [address] [facility] [place] [address] Phone Care Team Providers Care High School Assistant Principal Name Role Phone Bernardo WELLER, Mathew Early Unavailable Procedures Procedure Date POSTOP FOLLOW-UP VISIT POSTOP FOLLOW-UP VISIT Gastric Bypass LAP GASTRIC BYPASS/YOUSUF-EN-Y OFFICE/OUTPATIENT VISIT, EST OFFICE/OUTPATIENT VISIT, NEW Advance Directives Directive Yes / No Effective Date File Name No Information Encounters Encounter Description Practice Location Reason(s) For Visit Diagnoses Date Provider Providers Copied on Encounter [facility] [employer] [facility], [address] [place] [address], [id number], tel:[phone] [facility] No Information Bernardo Carmona. [address], [id number], [place]. tel:[phone] Referring Provider: Mathew Boudreaux, [address], [address]. tel:[phone] [facility], [address] [place] [address], [id number], tel:[phone] [facility] No Information Laci Londono. [address] [facility] [address], [place], [id number], [place]. tel:[phone] Referring Provider: Spring Aguero, [address] [facility] [address], [place], [address]. tel:[phone] [facility] [employer] [facility], [address] [place] [address] [address], [place], [place], [id number], [place] tel:[phone] [facility] IP No Information Laci Londono. [address], [place], [place], [address], [place]. tel:[phone] Referring Provider: Spring Aguero, [address] [facility] [address], [place], [address]. tel:[phone] [facility] [employer] [facility], [address] [place] [address] [address], [place], [place], [id number], [place] tel:[phone] [facility] IP No Information Bernardo Carmona. [address] [facility] [address], [place], [place], [address], [place]. tel:[phone] Referring Provider: Mathew Boudreaux, [address] [facility] [address], [place], [address]. tel:[phone] OFFICE/OUTPATI ENT VISIT, [facility] [employer] [facility], [address] [facility] [address], [place], [place], [id number], [place] tel:[phone] [facility] No Information Bernardo Carmona. [address] [facility] [address], [place], [place], [address], [place]. tel:[phone] Referring Provider: Mathew Boudreaux, [address] [facility] [address], [place], [address]. tel:[phone] OFFICE/OUTPATI ENT VISIT, [facility] [employer] [facility], [address] [place] [address] [address], [place], [place], [id number], [place] tel:[phone] [facility] No Information Bernardo Carmona. [address] [facility] [address], [place], [place], [id number], [place]. tel:[phone] Referring Provider: Mathew Boudreaux, [address] [facility] [address], [place], [address]. tel:[phone] Family History Family Member Type Diagnosis Age At Onset No Information Payers Payer name Insurance type Covered green party ID Bijal elmore(anastasiia Ruiz [id number] Social History Type Description Quantity Date Captured [...]
--- OUTSIDE RECORDS SUMMARY | 2024-09-04 11:15 | XMS_ITS ---
Author Organization [facility] in [place] Address [address] [place] [address] Care Team Providers Care Clinical Trainer Name Role Phone None, Unknown or Primary Care Provider Unavailab Mathew Lee Unavailable [phone] Allergies Allergen (clinical drug ingredient) Drug/Non Drug Allergy documented on EMR Reaction Allergy Type Onset Date Status Penicillin rash Drug Allergy Active REASON FOR VISIT left foot, surgical discussion Medications Medication SIG (Take, Route, Frequency, Duration) Notes Start Date End Date Status Citalopram Hydrobromide 40 MG 0.5 tablet Orally Once a day Active Lansoprazole 30 MG 1 tablet Orally Once a day Active Gabapentin Active ARIPiprazole 10 MG 1 tablet Orally Once a day Active CeleXA Active Ambien Active Prevacid Active Abilify Active Detrol Active Tolterodine Tartrate ER 4 MG 1 capsule Orally Once a day Active Social History Tobacco Use: Social History Observation Description Date Details (start date - stop date) Current Smoker NA - NA Tobacco Use/Smoking Question Answer Notes Patient is a current smoker How often do you smoke cigarettes? every day How many cigarettes a day do you smoke? 11-20 Problems Problem Type SNOMED Code ICD Code Onset Dates Problem Status W/U Status Risk Notes Problem [id number] Primary osteoarthrit is, left ankle and foot (M19.072) Active confirmed Vital Signs Heart Rate 84 /min 09/04/2024 Respiratory Rate 16 /min 09/04/2024 Oximetry 98 % 09/04/2024 Encounters Encounter Location Date Provider Diagnosis [facility] [place] (PODIATRY) [address] [place] [address] [place] [address] 09/04/2024 Mathew Hoff Pain due to internal orthopedic prosthetic devices, implants and grafts, initial encounter T84.84XA ; Primary osteoarthritis, left ankle and foot M19.072 and Left foot pain M79.672 Assessments Encounter Date Diagnosis (ICD Code) Assessment Notes Treatment Notes Treatment Clinical Notes Section Notes 09/04/2024 Pain due to internal orthopedic prosthetic devices, implants and grafts, initial encounter (ICD-10 - T84.84XA) Patient presents for follow-up and is status post second and third tarsometatarsal joint fusion performed in 2021. She has had persistent pain for over the last 2 years and it appears to be centrally located over the hardware. X-rays do show stable fixation and appears that the joints in question have healed but there is adjacent joint DJD predominantly noted on the lateral projection. Patient would like to proceed with hardware removal but I recommended a CT scan to ensure that these joints are fused and that there is no significant adjacent joint arthritis which could be contributing to her pain. She will follow-up after the CT scan is obtained. She was made aware of my upcoming transition to solo private practice and then I may not be able to do her surgery until late spring or early summer. If she would like to have this surgery prior to that time I could provide referral. She will let us know over the phone or at her follow-up appointment 09/04/2024 Primary osteoarthritis , left ankle and foot (ICD-10 - M19.072) 09/04/2024 Left foot pain (ICD-10 - M79.672) Plan Of Treatment Treatment Notes Assessment Notes Pain due to internal orthope dic prosthetic devices, implants and grafts, initial encounter Patient presents for follow-up and is status post second and third tarsometatarsal joint fusion performed in 2021. She has had persistent pain for over the last 2 years and it appears to be centrally located over the hardware. X-rays do show stable fixation and appears that the joints in question have healed but there is adjacent joint DJD predominantly noted on the lateral projection. Patient would like to proceed with hardware removal but I recommended a CT scan to ensure that these joints are fused and that there is no significant adjacent joint arthritis which could be contributing to her pain. She will follow-up after the CT scan is obtained. She was made aware of my upcoming transition to solo private practice and then I may not be able to do her surgery until late spring or early summer. If she would like to have this surgery prior to that time I could provide referral. She will let us know over the phone or at her follow-up appointment Pending Test Test Name Order Date XR Foot LT (3 views) * 09/04/2024 CT Foot LT w/o contrast * (Optional 3D R endering) 09/04/2024 Progress Notes * Talia RUTHERFORDDOB:[birth year] (54 yo F)Acc No.[id number]:09/04/2024 Follow Up Patient: Talia FREED Provider: Miguel Hoff DPM, MS :1970 A ge:54 Y S ex:Female Date:09/04/2024 Address:[address] [place], [id number] Pcp:Unknown or None Check In:03:07 PM ESTCheck O ut:03:57 PM EST Subjective: * Chief Complaints: * L eft foot, surgical discussion * HPI: G eneral: Pt has h/o left midfoot fusion DOS 03/10/2022. Pt report hardware is increasingly bothersome, would like to discuss having it removed. She used to take meloxicam which helped, is out of Rx. Pt has complaint of left foot numbness as well which is predominantly over the incision. * ROS: G eneral/Constitutional: Chills d enies. F ever d enies. W eight gain?denies. W eight loss d enies. S kin: Skin Ulcers d enies. S kin lesion(s) d enies. ? C ardiovascular: Difficulty breathing on exertion d enies. L eg cramps?denies. E kennedi d enies. C hest pain d enies. R espiratory: Difficulty breathing d enies. D yspnea d enies.?Cough d enies. G astrointestinal: Diarrhea d enies. N ausea d enies. V omiting?denies. M usculoskeletal: Bone/Joint Symptoms d enies. C usp Pain d enies.?Leg cramps d enies. N eurologic: Numbness d enies. T ingling d enies . G ait abnormality d enies. ? H ematology: Anemia D enies. E asy bruising d enies. ? A ll Other Systems: Review of Systems (ROS) S ee HPI for details,All others negative except those mentioned in HPI. * Active Problem List K21.9 GERD (gastroesophage al reflux disease) Modified On:03/01/2023/U Status:confirmed F41.8 Anxiety with depress ion Modified On:03/01/2023U Status:confirmed M79.672 Left foot pain Modified On:08/28/2024/U Status:confirmed M19.072 Primary osteoarthrit is, left ankle and foot Modified On:09/04/2024/U Status:confirmed * Medical History: * Surgical History: p osterior colporrhaphy repair, enterocele repair 02/15/2021gastric bypass 08/2019tubal ligation cholecystectomy * Hospitalization/Major Diagno stic Procedure: N o Hospitalization History. * Family History: F ather: diagnosed with Diabetes mellitus without mention of complication, type II or unspecified type, not stated as uncontrolled, Unspecified heart disease. M other: diagnosed with Diabetes mellitus without mention of complication, type II or unspecified type, not stated as uncontrolled.?Sister(s): diagnosed with Diabetes mellitus without mention of complication, type II or unspecified type, not stated as uncontrolled. M aternal Grandfather: diagnosed with Diabetes mellitus without mention of complication, type II or unspecified type, not stated as uncontrolled. * Social History: T obacco Use: T obacco Use/Smoking P atient is a c urrent smoker H ow often do you smoke cigarettes? e very day H ow many cigarettes a day do you smoke? 1 -20 * Medications: T akingAbilify Ambien ARIPiprazole 10 MG Tablet 1 tablet Orally Once a day CeleXA Citalopram Hydrobromide 40 MG Tablet 0.5 tablet Orally Once a day Detrol Gabapentin Lansoprazole 30 MG Tablet Delayed Release Disintegrating 1 tablet Orally Once a day Prevacid Tolterodine Tartrate ER 4 MG Capsule Extended Release 24 Hour 1 capsule Orally Once a day Taking Abilify Taking Ambien Taking ARIPiprazole 10 MG Tablet 1 tablet Orally Once a day Taking CeleXA Taking Citalopram Hydrobromide 40 MG Tablet 0.5 tablet Orally Once a day Taking Detrol Taking Gabapentin Taking Lansoprazole 30 MG Tablet Delayed Release Disintegrating 1 tablet Orally Once a day Taking Prevacid Taking Tolterodine Tartrate ER 4 MG Capsule Extended Release 24 Hour 1 capsule Orally Once a day DiscontinuedMeloxicam 15 MG Tablet 1 tablet Orally Once a day Medication List reviewed and reconciled with the patientDiscontinued Meloxicam 15 MG Tablet 1 tablet Orally Once a day Medication List reviewed and reconciled with the patient * Allergies: P enicillin: rashno[Allergies Verified] Objective: * Vitals: H R:84/min, RR:16/min, Pain scale:51-10, Oxygen sat %:98%. * Examination: P odiatry Examination: SKIN: s kin intact, n o sign of infection. MUSCULOSKELETAL: P ain on palpation over the second tarsometatarsal joint over palpable hardware. No pain over the third tarsometatarsal joint. No pain with stress exam of the midfoot. NEUROLOGICAL: l ight touch sensation intact, n egative tinel's sign. VASCULAR: P edal pulses palpable, C apillaryrefill is brisk to toe, D igitalhair intact. X -rays: x-rays were obtained & reviewed in my office. There is intact plate and screw construct spanning the second tarsometatarsal joint and 1 screw traversing the third tarsometatarsal joint. There appears to be osseous fusion at these joints with no change in alignment as compared to x-rays obtained in May 2022. There is mild adjacent joint arthritis. Assessment: * Assessment: 1. P ain due to internal orthopedic prosthetic devices, implants and grafts, initial encounter - T84.84XA (Primary) 2 . P rimary osteoarthritis, left ankle and foot - M19.072? 3. L eft foot pain - M79.672 Plan: * Treatment: 2. L eft foot pain I maging: XR Foot LT (3 views) * I maging: CT Foot LT w/o contrast * (Optional 3D Rendering) * Procedure Codes: * * Sign off status: Completed Visit Status: C HK (Check Out) true * Provider: Miguel Hoff DPM, MS Date: 0 09/04/2024 Generated for Taina marina/Nhi/Josiasitting on: 0 01/20/2025 12:49 PM EDT History and Physical Notes * HPI (History of Present Illness) Category Sub-Category Detail Notes Category Not es General Pt has h/o left midfoot fusion DOS 03/10/2022. Pt report hardware is increasingly bothersome, would like to discuss having it removed. She used to take meloxicam which helped, is out of Rx. Pt has complaint of left foot numbness as well which is predominantly over the incision. Examination Category Sub-Category Detail Notes Category Not es Podiatry Examination SKIN: skin intact, no sign of infection X-ray s: x-rays were obtained & reviewed in my office. There is intact plate and screw construct spanning the second tarsometatarsal joint and 1 screw traversing the third tarsometatarsal joint. There appears to be osseous fusion at these joints with no change in alignment as compared to x-rays obtained in May 2022. There is mild adjacent joint arthritis MUSCULOSKELETAL: Pain on palpation ov er the second tarsometatarsal joint over palpable hardware. No pain over the third tarsometatarsal joint. No pain with stress exam of the midfoot NEUROLOGICAL: light touch sensatio n intact, negative tinel's sign VASCULAR: Pedal pulses palpable, Capillary refill is brisk to toe, Digital hair intact
--- OUTSIDE RECORDS SUMMARY | 2024-09-04 11:53 | XMS_ITS ---
Author Organization [facility] in [place] Address [address] [place] [address] Care Team Providers Care Supervisor Pre Wave Name Role Phone None, Unknown or Primary Care Provider Unavailab Mathew Lee [phone] REASON FOR VISIT meds Medications Medication SIG (Take, Route, Fr equency, Duration) Notes Start Date End Date Status Meloxicam 15 MG 1 tablet Orally Once a day for 30 days 09/04/2024 Active Encounters Encounter Location Date Provider Diagnosis [facility] (PODIATRY) [address] [place] [address] [place] [address] 09/04/2024 Mathew Hoff Plan Of Treatment Medication Medication Name Sig Start Date Stop Date Notes Meloxicam 15 MG 1 tablet Orally Once a day for 30 days 06/2025 Progress Notes * Talia MERCADODOB:[birth year] (54 yo F)Acc No.[id number]:09/04/2024 Patient: Talia FREED :1970 A ge:54 Y S ex:Female Address:[address] [place], [address] * Refills Start Meloxicam Tablet, 15 MG, Orally, 30, 1 tablet, Once a day, 30 days, Refills=3 * true * Date: Generated for Printi ng/Faxing/eTransmitting on: 0 01/20/2025 12:50 PM EDT
--- OUTSIDE RECORDS SUMMARY | 2025-01-06 16:30 | XMS_ITS | Encounter Summary ---
Author Organization [facility] Address [address] [place] [address] Care Team Providers Care Medical Record Transcriber Name Role Phone Molina De Anda MD Primary Care Provider [phone] Valerie Groves NP Unavailable [phone] Reason for Referral * Behavioral Health - Outpatient (Stat) - Authorized Specialty Diagnoses / Procedures Referred By Contepifanio t Referred To Contact Behavioral Health Diagnoses Bipolar disorder with severe depression (HCC) Procedures MS OFFICE/OUTPATIENT NEW HIGH MDM 60 MINUTES Pascale Arana NP [address] [place] [address] Phone: tel: fax: Karime Dias, [facility] [address] [address] Phone: tel: fax: Referral ID Status Reason Start Date Expiration Date Visits Requested Visits Authorized [id number] Authorized Specialty Services Required 01/06/2025 07/05/2025 1 1 Scheduling Instructions Will need appt for both counseling and med management Reason for Visit * Reason Comments Weight Check Encounter Details Date Type Department Care Team ([facility] Contact Info) Description 01/06/2025 4:30 PM EDT Office Visit [facility] [address] [place] [id number] Pascale Arana NP [address] [place] [address] Bipolar disorder with severe depression (HCC) (Primary Dx); Gastroesophageal reflux disease, unspecified whether esophagitis present; Class 1 obesity due to excess calories without serious comorbidity with body mass index (BMI) of 32.0 to 32.9 in adult; Cigarette nicotine dependence without complication; Stress; Fibromyalgia; Psychophysiological insomnia Social History Tobacco Use Types Packs/Day Years Used Date Smoking Tobacco: Every Day Cigarettes 1 39.5 Started: 1985 Passive Smoke Exposure: Past Smokeless Tobacco: Never Comments:Thinking about quit ting Alcohol Use Standard Drinks/Week Comments Never 0 (1 standard drink = 0.6 oz pur e alcohol) caffeine: 3-4 cups per day Humiliation, Afraid, Rape, and Kick questionnair e Answer Date Recorded Within the last year, have y ou been afraid of your partner or ex-partner? No 08/07/2023 Within the last year, have y ou been humiliated or emotionally abused in other ways by your partner or ex-partner? No Within the last year, have y ou been kicked, hit, slapped, or otherwise physically hurt by your partner or ex-partner? No 08/07/2023 Within the last year, have y ou been raped or forced to have any kind of sexual activity by your partner or ex-partner? No 08/07/2023 Social Connection and Isolat ion Panel [NHANES] Answer Date Recorded In a typical week, how many times do you talk on the phone with family, friends, or neighbors? More than three times a week 08/07/2023 How often do you get togethe r with friends or relatives? Three times a week 08/07/2023 How often do you attend chur ch or anglican services? Never 08/07/2023 Do you belong to any clubs o r organizations such as protestant groups, unions, fraternal or athletic groups, or school groups? No 08/07/2023 How often do you attend meet ings of the clubs or organizations you belong to? Patient declined 08/07/2023 Are you , , di vorced, , never , or living with a partner? 08/07/2023 AUDIT-C Answer Date Recorded Q1: How often do you have a drink containing alcohol? Never 08/07/2023 Q2: How many drinks containi ng alcohol do you have on a typical day when you are drinking? Patient does not drink Q3: How often do you have si x or more drinks on one occasion? Never 08/07/2023 Overall Financial Resource Strain (CARDIA) Answe r Date Recorded How hard is it for you to pa y for the very basics like food, housing, medical care, and heating? Not hard at all 08/07/2023 PHQ-2 Answer Date Recorded Patient Health Questionnaire-2 Score 0 04/10/2024 [facility] - Occupational Stress Questionnaire Answer Date Recorded Do you feel stress - tense, restless, nervous, or anxious, or unable to sleep at night because your mind is troubled all the time - these days? To some extent 08/07/2023 Exercise Vital Sign Answer Date Recorde d On average, how many days pe r week do you engage in moderate to strenuous exercise (like a brisk walk)? 0 days 08/07/2023 On average, how many minutes do you engage in exercise at this level? 0 min 08/07/2023 Hunger Vital Sign Answer Date Recorded Within the past 12 months, y ou worried that your food would run out before you got the money to buy more. Never true 08/07/19 24 Within the past 12 months, t he food you bought just didn't last and you didn't have money to get more. Never true 08/07/2023 PRAPARE - Transportation Answer Date Re corded In the past 12 months, has l ack of transportation kept you from medical appointments or from getting medications? No 07/24 In the past 12 months, has l ack of transportation kept you from meetings, work, or from getting things needed for daily living? No 08/07/2023 Housing Stability Vital Sign Answer Earnest e Recorded In the last 12 months, was t here a time when you were not able to pay the mortgage or rent on time? No 08/07/2023 In the last 12 months, how many places have you lived? 1 08/07/2023 In the last 12 months, was t here a time when you did not have a steady place to sleep or slept in a [place] [facility] [place] facility (including now)? No 08/07/2023 Comments Unknown Sex and Gender Information Value Date Recorded Sex Assigned at Not on file Legal Sex Female 7:47 PM EDT Gender Identity Not on file Sexual Orientation Not on file documented as of this encounter Last Filed Vital Signs Vital Sign Reading Time Taken Comments Blood Pressure 110/60 01/06/2025 4:32 PM EDT Pulse 82 01/06/2025 4:32 PM EDT Temperature 36.7 C (98 F) 01/06/2025 4:32 PM EDT Respiratory Rate 18 01/06/2025 4:32 PM EDT Oxygen Saturation 98% 01/06/2025 4:32 PM EDT Inhaled Oxygen Concentration - - Weight 81.7 kg (180 lb 3.2 oz) 01/06/2025 4:32 P M EDT Height - - Body Mass Index 29.99 10/02/2024 4:51 PM EDT documented in this encounter Patient Instructions * Patient Instructions* Pascale Arana NP - 01/06/2025 4:30 PM EDT Discontinue the citalopram Start lamotrigine 1 pill at night for 2 weeks, then increase to 1 pill twice a day after that documented in this encounter Progress Notes * Pascale Arana NP - 01/06/2025 6:10 PM EDTAssociated Problem(s): Psychophysiological insomnia Current med: ambien * Pascale Arana NP - 01/06/2025 6:10 PM EDTAssociated Problem(s): Fibromyalgia Will continue duloxetine Stop her citalopram * Pascale Arana NP - 01/06/2025 6:10 PM EDTAssociated Problem(s): Iron deficiency anemia Never got a call about iron infusion * Pascale Arana NP - 01/06/2025 6:09 PM EDTAssociated Problem(s): Stress (Resolved 01/15/2025) See bipolar entry * Pascale Arana NP - 01/06/2025 6:09 PM EDTAssociated Problem(s): Bipolar disorder with severe depression (HCC) Stop citalopram Cont duloxetine Add lamictal Referred to counseling and psych Declines wanting to go to ER at this time, she has custody of her grandson, would not want to jepordize this. Will complete FMLA paper and take her off from 01/02/25-next fu appt which is 02/05/25 I will keep in close conversation with her. Has support system as well Agrees if worsened or had SI/HI ideas would go to Er JESSIKA 7=21 and PHQ 9=25 * Pascale Arana NP - 01/06/2025 4:30 PM EDT Images from the original note were not included. Talia Mercado is a 54 y.o. female presents with chief complaint of Weight Check HPI: 's father passed Pt found out her own family stressors from growing up, her father had another family and another marriage Both parents are passed, no answers, devastated, held father in high regard Went for some time not eating, just smoking cigs and drinking coffee, cannot sleep either Does have ambien she is taking Depression Visit Type: follow-up Patient presents with the following symptoms: anhedonia, depressed mood, excessive worry, fatigue, feelings of hopelessness, feelings of worthlessness, insomnia, muscle tension, nervousness/anxiety, psychomotor retardation and weight loss. Patient is not experiencing: chest pain, palpitations, psychomotor agitation, shortness of breath, suicidal ideas, suicidal planning and thoughts of . Frequency of symptoms: constantly Severity: incapacitating Sleep quality: non-restorative Nighttime awakenings: several Compliance with medications: 76-100% SUBJECTIVE: MEDICATIONS: Current Outpatient Medications Medication Instructions albuterol HFA 90 mcg/act inhaler 2 puffs, Inhalation, Every 4 hours PRN DULoxetine (CYMBALTA) 60 mg, Oral, Daily DULoxetine (CYMBALTA) 30 mg, Oral, Daily fexofenadine (HUNG ALLERGY) 180 mg, Oral, Daily fluticasone (Flonase) 50 MCG/ACT nasal spray 2 sprays, Each Nostril, Daily, Shake gently. Before first use, prime pump. After use, clean tip and replace cap. gabapentin (NEURONTIN) 300 mg, Oral, 3 times daily lamoTRIgine (LaMICtal) 25 MG tablet 1 pill at bedtime for 2 weeks, then increase to 1 pill twice a day meloxicam (MOBIC) 15 mg, Daily pantoprazole (PROTONIX) 40 mg, Oral, Daily, Do not crush, chew, or split. tolterodine LA (DETROL LA) 4 mg, Oral, Daily zolpidem (AMBIEN) 10 mg, Oral, Nightly PRN ALLERGIES: Allergies Allergen Reactions Penicillin G Unknown Penicillins REVIEW OF SYMPTOMS: Review of Systems Constitutional: Positive for appetite change, fatigue, unexpected weight change and weight loss. Negative for chills and fever. HENT: Negative for congestion, ear pain and sore throat. Eyes: Negative for pain, discharge, redness and visual disturbance. Respiratory: Negative for cough, shortness of breath and wheezing. Cardiovascular: Negative for chest pain, palpitations and leg swelling. Gastrointestinal: Negative for abdominal pain, blood in stool, constipation, diarrhea, nausea and vomiting. Genitourinary: Negative for difficulty urinating, dysuria and frequency. Musculoskeletal: Positive for myalgias. Negative for arthralgias, back pain and joint swelling. Skin: Negative for rash and wound. Neurological: Negative for dizziness, tremors, seizures, syncope and headaches. Psychiatric/Behavioral: Positive for depression and sleep disturbance. Negative for behavioral problems, self-injury and suicidal ideas. The patient is nervous/anxious and has insomnia. Depressed Hematological: Does not bruise/bleed easily. Endocrine: Negative for polydipsia, polyphagia and polyuria. Allergic/Immunologic: Negative for environmental allergies and food allergies. PAST MEDICAL HISTORY Past Medical History: Diagnosis Date Abnormal foot pulse Anxiety and depression Bipolar depression (HCC) Depression Equinus contracture of left ankle Fibromyalgia GERD (gastroesophageal reflux disease) Headache History of reconstructive repair of rectocele Insomnia Iron (Fe) deficiency anemia Left foot pain Numbness of tongue Onychocryptosis Onychomycosis Overactive bladder Peripheral arterial disease Primary osteoarthritis, left ankle and foot Seasonal [...] her maternal grandmother. OBJECTIVE: Visit Vitals BP 110/60 (BP Location: Left arm, Patient Position: Sitting, BP Cuff Size: Adult long) Pulse 82 Temp 98 ??F (Temporal) Resp 18 Wt 180 lb 3.2 oz SpO2 98% BMI 29.99 kg/m?? Smoking Status Every Day BSA 1.94 m?? Physical Exam Vitals and nursing note reviewed. Constitutional: Appearance: Normal appearance. She is not ill-appearing, toxic-appearing or diaphoretic. HENT: Head: Normocephalic and atraumatic. Right Ear: External ear normal. Left Ear: External ear normal. Nose: Nose normal. Mouth/Throat: Mouth: Mucous membranes are moist. Eyes: Extraocular Movements: Extraocular movements intact. Conjunctiva/sclera: Conjunctivae normal. Neck: Vascular: No carotid bruit. Cardiovascular: Rate and Rhythm: Normal rate and regular rhythm. Pulses: Normal pulses. Heart sounds: Normal heart sounds. Pulmonary: Effort: Pulmonary effort is normal. Breath sounds: Normal breath sounds. No wheezing or rhonchi. Abdominal: General: Bowel sounds are normal. There is no distension. Palpations: Abdomen is soft. There is no mass. Tenderness: There is no abdominal tenderness. Musculoskeletal: General: Normal range of motion. Cervical back: Normal range of motion and neck supple. Right lower leg: No edema. Left lower leg: No edema. Skin: General: Skin is warm and dry. Capillary Refill: Capillary refill takes 2 to 3 seconds. Findings: No rash. Neurological: General: No focal deficit present. Mental Status: She is alert and oriented to person, place, and time. Psychiatric: Comments: A and O X3, answers questions approp Flat affect, tearful, mono tone ASSESSMENT AND PLAN: Follow up in about 4 weeks (around 02/03/2025) for Recheck. Problem List Items Addressed This Visit Bipolar disorder with severe depression (HCC) Stop citalopram Cont duloxetine Add lamictal Referred to counseling and psych Declines wanting to go to ER at this time, she has custody of her grandson, would not want to jepordize this. Will complete FMLA paper and take her off from 01/02/25-next fu appt which is 02/05/25 I will keep in close conversation with her. Has support system as well Agrees if worsened or had SI/HI ideas would go to Er JESSIKA 7=21 and PHQ 9=25 Relevant Medications lamoTRIgine (LaMICtal) 25 MG tablet Other Relevant Orders Ambulatory referral to Behavioral Health Fibromyalgia Will continue duloxetine Stop her citalopram GERD (gastroesophageal reflux disease) - Primary Recommendations: freq small meals, nothing to eat or drink at least 2 hours prior to bed, limit caffeine, alcohol, as well as spicy foods Meds to limit or avoid if possible: NSAIDS Elevate HOB if possible Current med: pantoprazole Psychophysiological insomnia Current med: ambien Nicotine dependence The patient has been advised of the risks of continued smoking: stroke, [place], all forms of cancer, lung disease, and . Options for quitting smoking include: cold turkey, hypnosis, acupuncture, nicotine replacement meds(gum, lozenges, and patches), Buproprion, and Varenicline. At this time pt is encouraged to evaluate their goals for wanting to quit smoking, and reach out toprovider when ready to start this process Stress See bipolar entry Class 1 obesity due to excess calories without serious comorbidity in adult Discussed with patient their BMI (actual, verses recommended). We have also discussed lifestyle modifications: attempts to perform physical activity as chronic conditions allow, also to monitor dietary intake: increasing protein/fruits/veggies and lowering carb intake (unless contraindicated). Limit sodas, juices, and sugary drinks. Pt meets qualifications of [facility] [id number] for weight loss. BMI>30 or >27 with comorbid conditions. Notify office with any symptoms of chest pain, dyspnea, heart palpitations, or any anxiety symptoms. F/U in 4 weeks to document weight loss. Increase physical activity as tolerated, and lower caloric intake to 1600 calories daily if no contraindications OARRS reviewed Adipex: this will be month #6 Starting weight was 206 * LIZANDRO PICKARD - 01/06/2025 4:30 PM EDT Pt stopped taking the addipex about 6 weeks ago. * Pascale Arana NP - 01/06/2025 7:38 AM EDTAssociated Problem(s): Nicotine dependence The patient has been advised of the risks of continued smoking: stroke, [place], all forms of cancer, lung disease, and . Options for quitting smoking include: cold turkey, hypnosis, acupuncture, nicotine replacement meds(gum, lozenges, and patches), Buproprion, and Varenicline. At this time pt is encouraged to evaluate their goals for wanting to quit smoking, and reach out toprovider when ready to start this process * Pascale Arana NP - 01/06/2025 7:38 AM EDTAssociated Problem(s): Class 1 obesity due to excess [...] calories daily if no contraindications OARRS reviewed Adipex: this will be month #6 Starting weight was 206 * Pascale Arana NP - 01/06/2025 7:37 AM EDTAssociated Problem(s): GERD (gastroesophageal reflux disease) Recommendations: freq small meals, nothing to eat or drink at least 2 hours prior to bed, limit caffeine, alcohol, as well as spicy foods Meds to limit or avoid if possible: NSAIDS Elevate HOB if possible Current med: pantoprazole documented in this encounter Plan of Treatment Upcoming Encounters Date Type Department Care Team (Late st Contact Info) Description 01/22/2025 9:00 AM EDT Office Visit [facility] [address] [facility] [address] [place] [address] Karime Dias [facility] [address] [facility] [address] [place] [address] 02/05/2025 3:20 PM EDT Office Visit [facility] [address] [place] [id number] Pascale Arana NP [address] [place] [place] [address] Scheduled Referrals Name Type Priority Associated Diagnoses Order Schedule Ambulatory referral to Behavioral Health Outpatient Referral STAT Bipolar disorder with severe depression (HCC) Expected: 01/06/2025 (Approximate), Expires: 07/08/2025 documented as of this encounter Goals Goal Patient Goal Type Associated Problems Recent Progress Patient-Stated? Author Help patient manage antidepressant medication Care Plan Patient on antidepressant monitoring plan No Shaikh Main MD documented as of this encounter Visit Diagnoses Diagnosis Bipolar disorder with severe depression (HCC)- Primary Gastroesophageal reflux disease, unspecified whether esophagitis present Class 1 obesity due to excess calories without serious comorbidity with body mass index (BMI) of 32.0 to 32.9 in adult Cigarette nicotine dependence without complication Stress Other psychological or physical stress, not elsewhere classified Fibromyalgia Unspecified myalgia and myositis Psychophysiological insomnia Persistent disorder of initiating or maintaining sleep documented in this encounter Additional Health Concerns Active Problems Noted Date Diagnosed Date Patient on antidepressant monitoring plan 2023 Assessment Noted Time PHQ-9 Depression Total Score: 23 024 4:27 PM EST documented as of this encounter Care Teams Medical Record Transcriber Relationship Specialty Start Date End Date Molina De Anda MD [address] [place] [address] PCP - General Family Medicine 02/21/24 Valerie Groves NP [address] [place] [address] Nurse Practitioner Family Medicine 02/21/24 documented as of this encounter
--- OUTSIDE RECORDS SUMMARY | 2025-01-20 12:49 | XMS_ITS | Encounter Summary ---
Author Organization [facility] Address [address] [place] [address] Care Team Providers Care Rubber Liner Name Role Phone Shaikh NITHIN Main Primary Care Provider [phone] Shaikh NITHIN Main Primary Care Provider [phone] Molina De Anda MD Primary Care Provider [phone] Valerie Groves CAREER DEVELOPMENT SPECIALIST Unavailable [phone] Reason for Visit * Reason Comments Med Refill Encounter Details Date Type Department Care Team (Late st Contact Info) Description 10/16/2023 Refill [facility] [address] [place] [address] Shaikh Main MD [address] [place] [address] Psychophysiological insomnia Social History Tobacco Use Types [...] How often do you attend chur or jew services? Never 08/07/2023 Do you belong to any clubs o r organizations such as zoroastrian groups, unions, fraternal or athletic groups, or [...] Recorded Patient Health Questionnaire-2 Score 6 08/03/2023 [facility] - Occupational Stress [...] place to sleep or slept in a group home (including now)? No 08/07/2023 Comments Unknown [...] 9:00 AM EDT Office Visit [facility] [address] [facility] [address] [place] [address] Karime Dias, PMHNP- [address] [facility] [address] [place] [address] 02/05/2025 3:20 PM EDT Office Visit [facility] [address] [place] [address] Pascale Arana NP [address] [place] [address] documented as of this encounter Goals Goal [...] documented as of this encounter Care Teams Rubber Liner Relationship Specialty Start Date End Date Shaikh Main MD PCP - General Internal Medicine 04/20/23 01/07/24 Shaikh Main MD [address] [place] [address] PCP - General Internal Medicine 01/08/24 02/20/24 Molina De Anda MD [address] [place] [address] PCP - General Family Medicine 02/21/24 Valerie Groves NP [address] [place] [address] Nurse Practitioner Family Medicine 02/21/24 documented as of this encounter
--- OUTSIDE RECORDS SUMMARY | 2025-01-20 12:50 | XMS_ITS | Encounter Summary ---
Author Organization [facility] Address [address] [place] [address] Care Team Providers Care Silk Printer Name Role Phone Molina De Anda MD Primary Care Provider [phone] Valerie Groves BED WORKER Unavailable [phone] Encounter Details Date Type Department Care Team (Late st Contact Info) Description 01/07/2025 Orders Only [facility] [address] [place] [address] Pascale Arana NP [address] [place] [place] [address] B12 deficiency (Primary Dx); Iron deficiency anemia [...] any clubs o r organizations such as taoism groups, unions, fraternal or athletic groups, or [...] 01/22/2025 9:00 AM EDT Office Visit [facility] [address] [facility] [address] [place] [address] Karime Dias [facility] [address] [facility] [address] [place] [address] 02/05/2025 3:20 PM EDT Office Visit [facility] [address] [place] [address] Pascale Arana NP [address] [place] [address] Scheduled Orders Name Type Priority Associated Diagnoses [...] documented as of this encounter Care Teams Silk Printer Relationship Specialty Start Date End Date Molina De Anda MD [address] [place] [address] PCP - General Family Medicine 02/21/24 Valerie Groves NP [address] [place] [address] Nurse Practitioner Family Medicine 02/21/24 documented as of this encounter
--- OUTSIDE RECORDS SUMMARY | 2025-01-20 12:50 | XMS_ITS | Encounter Summary ---
Author Organization [facility] Address [address] [place] [address] Care Team Providers Care Rubber Goods Cutter Finisher Name Role Phone Molina De Anda MD Primary Care Provider [phone] Valerie Groves SPECIAL SERVICES COORDINATOR Unavailable [phone] Encounter Details Date Type Department Care Team (Late st Contact Info) Description 01/08/2025 Telephone [facility] [address] [place] [address] Pascale Arana NP [address] [place] [address] Social History Tobacco Use Types Packs/Day Years [...] How often do you attend chur or buddhism services? Never 08/07/2023 Do you belong to [...] Recorded Patient Health Questionnaire-2 Score 0 04/10/2024 [facility] Questionnaire Answer Date [...] PICKARD - 01/08/2025 3:10 PM EDT Text Boat Ride Operator Hi, this is Jeremy with a disability calling on a recorded line and [facility] and the patient that we have is [...] to concern, you can call us at [phone]. Again, that is [phone] from 8AM. To 8PM. Eastern Standard Time, Monday till Monday. And you could reference this call to claim number [id number]. Again, that is [phone] when returning the call. Thank you so much and have a good day. documented in this encounter Plan of Treatment Upcoming Encounters Date Type Department Care Team (Late st Contact Info) Description 01/22/2025 9:00 AM EDT Office Visit [facility] [address] [place] [address] [place] [address] DiasKarime boo, PMHNP-BC [address] [place] [address] [place] [address] 02/05/2025 3:20 PM EDT Office Visit [facility] [address] [place] [address] Pascale Arana NP [address] [place] [address] documented as of this encounter Goals Goal [...] as of this encounter Care Teams Rubber Goods Cutter Finisher Relationship Specialty Start Date End Date Molina De Anda MD [address] [place] [address] PCP - General Family Medicine 02/21/24 Valerie Groves NP [address] [place] [address] Nurse Practitioner Family Medicine 02/21/24 documented as of this encounter
--- OUTSIDE RECORDS SUMMARY | 2025-01-20 12:50 | XMS_ITS | Encounter Summary ---
Author Organization [facility] Address [address] [place] [address] Care Team Providers Care Patient Liaison Name Role Phone Molina De Anda MD Primary Care Provider [phone] Valerie Groves PAYMASTER OF PURSES Unavailable [phone] Encounter Details Date Type Department Care Team (Late st Contact Info) Description 11/14/2024 Orders Only [facility] [address] [place] [address] Pascale Arana NP [address] [place] [address] UTI (urinary tract infection), uncomplicated (Primary Dx) [...] How often do you attend chur or restorationism services? Never 08/07/2023 Do you belong to any clubs o r organizations such as scientology groups, unions, fraternal or athletic groups, or [...] place to sleep or slept in a halfway (including now)? No 08/07/2023 Comments Unknown Sex and Gender Information Value Date Recorded Sex Assigned at Not on file Legal Sex Female 7:47 PM EDT Gender Identity Not on file Sexual Orientation Not on file documented as of this encounter Plan of Treatment Upcoming Encounters Date Type Department Care Team (Late st Contact Info) Description 01/22/2025 9:00 AM EDT Office Visit [facility] [address] [facility] [address] [place] [address] Karime Dias [facility] [address] [facility] [address] [place] [address] 02/05/2025 3:20 PM EDT Office Visit [facility] [address] [place] [address] Pascale Arana NP [address] [place] [address] Scheduled Orders Name Type Priority Associated Diagnoses [...] documented as of this encounter Care Teams Patient Liaison Relationship Specialty Start Date End Date Molina De Anda MD [address] [place] [address] PCP - General Family Medicine 02/21/24 Valerie Groves NP [address] [place] [address] Nurse Practitioner Family Medicine 02/21/24 documented as of this encounter
--- OUTSIDE RECORDS SUMMARY | 2025-01-20 12:50 | XMS_ITS | Clinical Summary ---
Author Organization [facility] Address [id number] [address] [place] [address] Care Team Providers Care Supervisor Pullet Farm Name Role Phone No Pcp, No Pcp [...] Not on file Insurance [employer] Care Teams Supervisor Pullet Farm Relationship Specialty Start Date End Date No Pcp, No Pcp SEGUN [place] [address] PCP - General Family Medicine 11/21/18
--- OUTSIDE RECORDS SUMMARY | 2025-01-20 12:50 | XMS_ITS | Encounter Summary ---
Author Organization [facility] Address [address] [place] [address] Care Team Providers Care Hose Tubing Backer Name Role Phone Molina De Anda MD Primary Care Provider [phone] Valerie Groves FIRE CHIEF DEPUTY Unavailable [phone] Encounter Details Date Type Department Care Team (Late st Contact Info) Description 02/29/2024 Orders Only [facility] [address] [place] [address] Valerie Groves NP Social History [...] often do you attend chur ch or sikh services? Never 08/07/2023 Do you belong to any clubs o r organizations such as restorationism groups, unions, fraternal or athletic groups, or [...] Recorded Patient Health Questionnaire-2 Score 0 02/28/2024 [facility] Questionnaire Answer Date [...] 9:00 AM EDT Office Visit [facility] [address] [place] [address] [place] [address] Karime Dias HN- [address] [place] [address] [place] [address] 02/05/2025 3:20 PM EDT Office Visit [facility] [address] [place] [address] Pascale Arana NP [address] [place] [address] documented as of this encounter Goals Goal [...] Laterality Modality Radiographic Maeve ging Valerie Groves FIRE CHIEF DEPUTY IMG XR PROCEDURES Final Result documented in this encounter Visit Diagnoses Not on filedocumented in this encounter Additional Health Concerns Active Problems Noted Date Diagnosed Date Patient on antidepressant monitoring plan 2023 Assessment Noted Time PHQ-9 Depression Total Score: 23 024 4:27 PM EST documented as of this encounter Care Teams Hose Tubing Backer Relationship Specialty Start Date End Date Molina De Anda MD [address] [place] [address] PCP - General Family Medicine 02/21/24 Valerie Groves NP [address] [place] [address] Nurse Practitioner Family Medicine 02/21/24 documented as of this encounter
--- OUTSIDE RECORDS SUMMARY | 2025-01-20 12:50 | XMS_ITS | Encounter Summary ---
Author Organization [facility] Address [id number] [address] [place] [address] Care Team Providers Care Assembly Manager Name Role Phone No Pcp, No Pcp Primary Care Provider Unavailabl e Encounter Details Date Type Department Care Team (Late st Contact Info) Description 02/13/2023 Telephone [facility] [address] [place] [address] Segun Keene DO [address] [place] [address] Social History Tobacco Use Types [...] office visit;just set up for colonsocopy at [facility] for anemis. I don't need to see he agian. Saw her today!!! * Telephone Encounter - Alberta Millan - 02/13/2023 11:36 AM EDT Talia called the office to try to reschedule her appointment, I informed her that Dr. Jassi greerntderrick her set up for a colonoscopy at [facility]. Told Talia that our surgery schedulerwill call her back to schedule that with her. * Telephone Encounter - SUGEY Loyd - 02/13/2023 11:36 AM EDT I called Talia and scheduled colonoscopy at [facility] for 03/08/23. The patient is coming in tomorrow 02/14/23 to sign papers and go over bowel prep. I will send Dr. Keene a message to put in orders for this procedure and email everything over to Anh at the [facility]. documented in this encounter Plan of Treatment Not on file documented as of this encounter Visit Diagnoses Not on filedocumented in this encounter Care Teams Assembly Manager Relationship Specialty Start Date End Date No Pcp, [place] [address] PCP - General Family Medicine 11/21/18 documented as of this encounter
--- OUTSIDE RECORDS SUMMARY | 2025-01-20 12:50 | XMS_ITS | Encounter Summary ---
Author Organization [facility] Address [address] [place] [address] Care Team Providers Care Labor Trainer Name Role Phone Molina De Anda MD Primary Care Provider [phone] Valerie Groves SUBCONTRACTS MANAGER Unavailable [phone] Encounter Details Date Type Department Care Team (Late st Contact Info) Description 01/14/2025 Clinisync Result Encounter [facility] External Department Unsolicited Pascale Arana NP [address] [place] [address] Social History Tobacco Use Types Packs/Day Years [...] often do you attend chur ch or yarsani services? Never 08/07/2023 Do you belong to any clubs o r organizations such as congregation groups, unions, fraternal or athletic groups, or [...] Recorded Patient Health Questionnaire-2 Score 0 04/10/2024 [facility] [...] to sleep or slept in a senior living (including now)? No 08/07/2023 Comments Unknown Sex [...] [facility] [address] [place] [address] [place] [address] Karime Dias HNP- [address] [place] [address] [place] [address] 02/05/2025 3:20 PM EDT Office Visit [facility] [address] [place] [address] Pascale Arana, MARY JO [address] [place] [address] documented as of this encounter Goals Goal Patient Goal Type Associated Problems Recent Progress Patient-Stated? Author Help patient manage antidepressant medication Care Plan Patient on antidepressant monitoring plan No Shaikh Main MD documented as of this encounter Procedures Procedure Name Priority Date/Time Associated Diagnosis Comments VITAMIN B12 Routine 01/14/2025 12:49 PM EDT TRANSFERRIN Routine 01/14/2025 12:49 PM EDT METRO IRON AND TIBC Routine 01/14/2025 1 2:49 PM EDT [facility] FERRITIN Routine 01/14/2025 12:49 PM EDT ALL CBC WITH AUTO DIFF Routine 01/14/2025 12:49 PM EDT documented in this encounter Results * TRANSFERRIN (01/14/2025 12:49 PM EDT) TRANSFERRIN 296 192 - 364 mg/dL [facility] Comment: Performed at: [address] [id number] Train Control Electronic Technician: Hector Franco PhD, Phone: [phone] 01/14/2025 12:4 9 PM EDT 01/14/2025 12:50 PM EDT Narrative CLINISYNC - 01/15/2025 5:07 AM EDT Pascale Arana SUBCONTRACTS MANAGER LAB BLOOD ORDERABLES Final Resu lt Performing Organization Address [facility]/State/ZIP Co de Phone Number CLINISYNC TB * (ABNORMAL) VITAMIN B12 (01/14/2025 12:49 PM EDT) VITAMIN B12 >2000(A) 232 - 1245 pg/mL [facility] Comment: Performed at: [address] [id number] Train Control Electronic Technician: Hector Franco PhD, Phone: [phone] 01/14/2025 12:4 9 PM EDT 01/14/2025 12:50 PM EDT Narrative CLINISYNC - 01/15/2025 4:07 AM EDT us Pascale Arana SUBCONTRACTS MANAGER LAB BLOOD ORDERABLES Final Resu lt CLINISYCO TB * [facility] FERRITIN (01/14/2025 12:49 PM EDT) FERRITIN 10.0 8.0 - 252.0 ng/mL [facility] 01/14/2025 12:4 9 PM EDT 01/14/2025 12:50 PM EDT Narrative CLINISYNC - 01/14/2025 2:05 PM EDT Pascale Arana SUBCONTRACTS MANAGER CLINISYNC Final Result Performing Organization Address [facility]/ZIP Co de Phone Number [facility] TB * METRO IRON AND TIBC (01/14/2025 12:49 PM EDT) TB IRON 54.0 50.0 - 170.0 ug/dL TBH TBH TOTAL IRON BINDING CAPACITY 387.0 250.0 - 450.0 ug/dL TB [facility]H PERCENT IRON SATURATION 14.0 % [facility] 01/14/2025 12:4 9 PM EDT 01/14/2025 12:50 PM EDT Narrative CLINISYNC - 01/14/2025 1:50 PM EDT Pascale Arana SUBCONTRACTS MANAGER CLINISYNC Final Result Performing Organization Address [facility]/ZIP Co de Phone Number CLINISYCO TB * (ABNORMAL) ALL CBC WITH AUTO DIFF (01/14/2025 12:49 PM EDT) [facility] WBC 6.1 4.0 - 11.0 10 3/uL TBH TBH RBC 4.12(L) 4.20 - 5.40 10 6/uL TBH TBH HGB 11.8(L) 12.0 - 16.0 g/dL TBH TBH HCT 36.2 36.0 - 48.0 % TBH TBH MCV 87.9 81.0 - 99.0 fL TBH TBH MCH 28.6 26.7 - 34.0 pg TBH TBH MCHC 32.6 29.9 - 35.2 g/dL TBH TBH RDW 15.6(H) 11.0 - 15.0 % TBH TBH PLT 273 150 - 450 10 3/uL TBH TBH MPV 9.6 9.5 - 13.5 fL TBH NEUTROPHILS PERCENT AUTO 54.5 43.0 - 75.0 % TBH LYMPHOCYTES PERCENT AUTO 32.0 20.5 - 60.0 % [facility] MONOCYTES PERCENT AUTO 5.4 1.7 - 12.0 % TBH TBH EO % 6.9 0.9 - 7.0 % TBH BASOPHILS PERCENT AUTO 1.0 0.2 - 2.0 % [facility] IMMATURE GRANULOCYTES PCT AUTO 0.2 0.0 - 0.5 % TBH NEUTROPHILS ABSOLUTE AUTO 3.3 1.4 - 6.5 10 3/uL TBH LYMPHOCYTES ABSOLUTE AUTO 1.9 1.2 - 3.8 10 3/uL TBH MONOCYTES ABSOLUTE AUTO 0.3 0.3 - 0.8 10 3/uL TBH TBH EO # 0.4 0.0 - 0.7 10 3/uL TBH BASOPHILS ABSOLUTE AUTO 0.1 0.0 - 0.1 10 3/uL [facility] IMMATURE GRANULOCYTES ABS AUTO 0.01 0.00 - 0.03 10 3/uL [facility] 01/14/2025 12:4 9 PM EDT 01/14/2025 12:50 PM EDT Narrative CLINISYNC - 01/14/2025 1:00 PM EDT us Pascale Arana NP CLINISYNC Final Result Performing Organization Address City/State/[facility] Co de Phone Number [facility] documented in this encounter Visit Diagnoses Not on filedocumented in this encounter Additional Health Concerns Active Problems Noted Date Diagnosed Date Patient on antidepressant monitoring plan 2023 Assessment Noted Time PHQ-9 Depression Total Score: 23 024 4:27 PM EST documented as of this encounter Care Teams Labor Trainer Relationship Specialty Start Date End Date Molina De Anda MD [address] [place] [address] PCP - General Family Medicine 02/21/24 Valerie Groves NP [address] [place] [address] Nurse Practitioner Family Medicine 02/21/24 documented as of this encounter
--- OUTSIDE RECORDS SUMMARY | 2025-01-20 12:50 | XMS_ITS | Encounter Summary ---
Author Organization [facility] Address [address] [place] [address] Care Team Providers Care Assistant Community Manager Name Role Phone Shaikh NITHIN Main Primary Care Provider [phone] Shaikh NITHIN Main Primary Care Provider [phone] Molina De Anda MD Primary Care Provider [phone] Valerie Groves SENIOR RUBY DEVELOPER Unavailable [phone] Encounter Details Date Type Department Care Team (Late st Contact Info) Description 11/20/2023 Orders Only [facility] [address] [place] [address] Shaikh Main MD [address] [place] [address] Social History Tobacco Use Types Packs/Day Years [...] any clubs o r organizations such as presybeterian groups, unions, fraternal or athletic groups, or [...] Recorded Patient Health Questionnaire-2 Score 0 11/13/2023 [facility] - Occupational Stress Questionnaire Answer Date [...] [facility] [address] [facility] [address] [place] [address] Karime Dias PMHNP- [address] [facility] [address] [place] [address] 02/05/2025 3:20 PM EDT Office Visit [facility] [address] [place] [address] Pascale Arana NP [address] [place] [address] documented as of this encounter Goals Goal [...] documented as of this encounter Care Teams Assistant Community Manager Relationship Specialty Start Date End Date Shaikh Main MD PCP - General Internal Medicine 04/20/23 01/07/24 Shaikh Main MD [address] [place] [address] PCP - General Internal Medicine 01/08/24 02/20/24 Molina De Anda MD [address] [place] [address] PCP - General Family Medicine 02/21/24 Valerie Groves NP [address] [place] [address] Nurse Practitioner Family Medicine 02/21/24 documented as of this encounter
--- OUTSIDE RECORDS SUMMARY | 2025-01-20 12:50 | XMS_ITS | Encounter Summary ---
Author Organization [facility] Address [address] [place] [address] Care Team Providers Care Commercial Reporter Name Role Phone Molina De Anda MD Primary Care Provider Valerie Groves TALENT SOURCING SPECIALIST Unavailable [phone] Encounter Details Date Type Department Care Team (Late st Contact Info) Description 11/18/2024 Orders Only [facility] [address] [place] [address] Pascale Arana NP [address] [place] [address] Social History Tobacco Use Types Packs/Day Years [...] How often do you attend chur or judaism services? Never 08/07/2023 Do you belong to any clubs o r organizations such as restoration groups, unions, fraternal or athletic groups, or [...] Recorded Patient Health Questionnaire-2 Score 0 04/10/2024 [facility] - Occupational [...] place to sleep or slept in a skilled nursing (including now)? No 08/07/2023 Comments Unknown Sex and Gender Information Value Date Recorded Sex Assigned at Not on file Legal Sex Female 7:47 PM EDT Gender Identity Not on file Sexual Orientation Not on file documented as of this encounter Plan of Treatment Upcoming Encounters Date Type Department Care Team (Late st Contact Info) Description 01/22/2025 9:00 AM EDT Office Visit [facility] [address] [facility] [address] [place] [address] Karime Dias [facility] [address] [facility] [address] [place] [address] 02/05/2025 3:20 PM EDT Office Visit [facility] [address] [place] [address] Pascale Arana NP [address] [place] [address] documented as of this encounter Goals Goal [...] (11/18/2024 2:41 PM EDT) us Pascale Sumit TALENT SOURCING SPECIALIST LAB CHG PERFORMABLES Final Resu lt documented in this encounter Visit Diagnoses Not on filedocumented in this encounter Additional Health Concerns Active Problems Noted Date Diagnosed Date Patient on antidepressant monitoring plan 2023 Assessment Noted Time PHQ-9 Depression Total Score: 23 024 4:27 PM EST documented as of this encounter Care Teams Commercial Reporter Relationship Specialty Start Date End Date Molina De Anda MD [address] [place] [address] PCP - General Family Medicine 02/21/24 Valerie Groves NP [address] [place] [address] Nurse Practitioner Family Medicine 02/21/24 documented as of this encounter
--- OUTSIDE RECORDS SUMMARY | 2025-01-20 12:50 | XMS_ITS | Encounter Summary ---
Author Organization [facility] Address [address] [place] [address] Care Team Providers Care Manager Field Services Name Role Phone Shaikh NITHIN Main Primary Care Provider [phone] Shaikh NITHIN Main Primary Care Provider [phone] Molina De Anda MD Primary Care Provider [phone] Valerie Groves MANAGER [employer] Unavailable [phone] Encounter Details Date Type Department Care Team (Late st Contact Info) Description 08/03/2023 Orders Only [facility] [address] [place] [place] [address] Shaikh Main MD [address] [place] [address] Social History Tobacco Use Types Packs/Day Years [...] 08/07/2023 How often do you attend chur [employer] or lutheran services? Never 08/07/2023 Do you belong to any clubs o r organizations such as religious groups, unions, fraternal or athletic groups, or [...] Recorded Patient Health Questionnaire-2 Score 6 08/03/2023 [facility] ionmo Health - Occupational Stress [...] [facility] [address] [facility] [address] [place] [address] Karime Dias [facility] [address] [facility] [address] [place] [address] 02/05/2025 3:20 PM EDT Office Visit [facility] [address] [place] [address] Pascale Arana NP [address] [place] [address] documented as of this encounter Goals Goal [...] documented as of this encounter Care Teams Manager Field Services Relationship Specialty Start Date End Date Shaikh Main MD PCP - General Internal Medicine 04/20/23 01/07/24 Shaikh Main MD [address] [place] [address] PCP - General Internal Medicine 01/08/24 02/20/24 Molina De Anda MD [address] [place] [address] PCP - General Family Medicine 02/21/24 Valerie Groves NP [address] [place] [address] Nurse Practitioner Family Medicine 02/21/24 documented as of this encounter
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
--- OUTSIDE RECORDS SUMMARY | 2025-01-20 12:50 | XMS_ITS | Patient Health Record ---
Author Organization [facility] [place] Address [address] [place] [address] Care Team Providers Care Heel Burnisher Name Role Phone None, Unknown or Primary Care Provider Unavailab Tawana Lee [phone] Allergies Allergen (clinical drug ingredient) Drug/Non Drug Allergy documented on EMR Reaction Allergy Type Onset Date Status Penicillin rash Drug Allergy Active Results Component Value Reference Range Notes XR foot LT min 3V (Not yet r eviewed by provider) Interpretation: Performing Lab: Notes/Report: Source Facility: [place] [address] XRay Report Signed Patient: KALYN RUTHERFORD MR#: [id number] : 1970 Acct:[id number] Age/Sex: 54 / F ADM Date: 09/04/24 Loc: EC Attending Dr: Tawana Hoff D.P.M. Ordering Physician: Tawana Hoff D.P.M. Date of Service: 09/04/24 Procedure(s): XR foot LT min 3V Accession Number(s): [id number] cc: NASH LAMAR Peter D.P.M. The [place] [address] Patient Name: KALYN RUTHERFORD MRN: [id number] date: 1970 Sex: F Assigned Patient Location: EC Current Patient Location: Accession/Order Number: [id number] Exam Date: 09/04/2024 15:53 Report Date: 09/05/2024 [...] Signed By: 09/05/24 1019 DD/ 1016 TD/TT: Cylinder Honer: [place] [address] XRay Report Signed Patient: MARTY RUTHERFORD MR#: [id number] : 1970 Acct:[id number] Age/Sex: 54 / F ADM Date: 09/04/24 Loc: EC Attending Dr: Tawana Hoff D.P.M. Ordering Physician: Tawana Hoff D.P.M. Date of Service: 09/04/24 Procedure(s): XR foot LT min 3V Accession Number(s): [id number] cc: PAUL LAMAR; Tawana Hoff D.P.M. The [place] [id number] Patient Name: AKLYN RUTHERFORD MRN: [id number] date: 1970 Sex: F Assigned Patient Location: Current Patient Location: Accession/Order Numb er: [id number] Exam Date: 09/04/2024 15:53 Report Date: 09/05/2024 10:16 At the request of: TAWANA HOFF Procedure: XR foot LT min 3V PROCEDURE: XR foot LT min 3V HISTORY: LEFT FOOT PAIN COMPARISON: XR foot left 05/31/2022 . FINDINGS: BONES:Prior optomechanical engineer al fusion of the second third tarsal-metatarsal [...] Signed By: 09/05/24 1019 DD/ 1016 TD/TT: Cylinder Honer: CT FOOT LT WO CON (Not yet r eviewed by provider) Interpretation: Performing Lab: Notes/Report: Source Facility: [place] [address] CT Scan Report Signed Patient: KALYN RUTHERFORD MR#: [id number] : 1970 Acct:[id number] Age/Sex: 54 / F ADM Date: 09/09/24 Loc: CT Attending Dr: Tawana Hoff D.P.M. Ordering Physician: Tawaan Hoff D.P.M. Date of Service: 09/09/24 Procedure(s): CT foot LT wo con Accession Number(s): [id number] cc: ANGEL LUIS LAMAR [place] [address] Patient Name: KALYN RUTHERFORD MRN: [id number] date: 1970 Sex: F Assigned Patient Location: CT Current Patient Location: CT Accession/Order Number: [id number] Exam Date: 09/09/2024 15:56 Report Date: 09/09/2024 [...] M.D. Signed By: 09/09/241741 DD/ 38 TD/TT: Cylinder Honer: [place] [address] CT Scan Report Signed Patient: MARTY RUTHERFORD MR#: [id number] : 1970 Acct:[id number] Age/Sex: 54 / F ADM Date: 09/09/24 Loc: CT Attending Dr: Tawana Hoff D.P.M. Ordering Physician: Tawana Hoff D.P.M. Date of Service: 09/09/24 Procedure(s): CT foot LT wo con Accession Number(s): [id number] cc: ANGEL LUIS LAMAR [place] [address] Patient Name: KALYN RUTHERFORD MRN: [id number] date: 1970 Sex: F Assigned Patient Location: CT Current Patient Location: CT Accession/Order Numb er: [id number] Exam Date: 09/09/2024 15:56 Report Date: 09/09/2024 [...] M.D. Signed By: 09/09/241741 DD/ 38 TD/TT: Cylinder Honer: Reason For Referral No Information Medications Medication [...] Problem Status W/U Status Risk Notes Problem 0981233923666208 Primary osteoarthritis , left ankle and foot (M19.072) Active confirmed Problem Gastroesophageal reflux disease (601600064) GERD (gastroesophag eal reflux disease) (K21.9) Active confirmed Problem Pain in left foot (968693117214525) Left foot pain (M79.672) Active confirmed Problem Anxiety depression (106264327) Anxiety with depression (F41.8) Active confirmed Vital Signs Heart Rate 85 /min 09/18/2024 Respiratory Rate 16 /min 09/18/2024 Oximetry 97 % 09/18/2024 Encounters Encounter Location Date Provider Diagnosis [facility] [address] [place] [address] [place] [address] 09/04/2024 Tawana Hoff Pain due to internal orthopedic prosthetic devices, implants and grafts, initial encounter T84.84XA ; Primary osteoarthritis, left ankle and foot M19.072 and Left foot pain M79.672 [facility] [address] [place] [address] [place] [address] 09/18/2024 Tawana Hoff 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.0 ; Primary osteoarthritis, left ankle and foot M19.072 and Pain due to internal orthopedic prosthetic devices, implants and grafts, initial encounter T84.84XA [facility] [address] [place] [address] [place] [address] 09/04/2024 Tawana Hoff Assessments Encounter Date Diagnosis [...] or at her follow-up appointment 09/04/2024 Primary osteoarthritis, left ankle and foot [...] Insured Coverage Start Date Coverage End Date [employer] [facility] [address] [place] [address] [id number] Kalyn Rutherford Self - patient is the insured Medical (General) History Medical History History ICD Code GERD (gastroesophageal reflux disease) K 21.9 Anxiety F41.9 Arthritis M19.90 Nicotine dependence F17.200 Bipolar depression F31.9 Overactive bladder N32.81 Peripheral arterial disease I73.9 Surgical History Surgery Date(Month/Year) posterior colporrhaphy repair, enterocel e repair 02/15/2021 gastric bypass 08/2019 tubal ligation cholecystectomy
--- OUTSIDE RECORDS SUMMARY | 2025-01-20 12:50 | XMS_ITS | Referral Summary ---
Author Organization [facility] Address [address] [place] [address] Care Team Providers Care Fan Blade Truer Name Role Phone Shaikh NITHIN Main Primary Care Provider [phone] Allergies Active Allergy Reactions Criticality Noted Date Comments Penicillins 02/08/2023 Medications citalopram (CeleXA) 40 mg tablet Take 40 mg by mouth in the morning. Active traZODone (Desyrel) 50 mg tablet Take 50 mg by mouth if needed each day. 01/09/2023 Active lansoprazole (Prevacid) [address] capsule Take 30 mg by mouth in the morning. Active cholecalciferol (Vitamin D-3) 25 MCG (1000 UT) capsule Take 1 capsule every day by oral route. Active ARIPiprazole (Abilify) 5 mg tablet Take 10 mg by mouth in the morning. Active tolterodine LA (Detrol LA) 4 mg 24 hr capsule Take 4 mg by mouth in the morning. 01/03/2023 Active Active Problems No known active problems Social History Tobacco Use Types Packs/Day Years Used Date Smoking Tobacco: Every Day Cigarettes Smokeless Tobacco: Never Tobacco Cessation:Ready to Q uit: Not Asked; Counseling Given: Not Answered [place] Safety & Environment Answer Date Rec orded Fear of Current or Ex-Partner Not on file Emotionally Abused Not on file 09/14/2023 Physically Abused Not on file 09/14/2023 Sexually Abused Not on file 09/14/2023 Physically or Sexually Abused Not on file Comments Unknown Sex and Gender Information Value Date Recorded Sex Assigned at Not on file Legal Sex Female 10:25 PM EDT Gender Identity Not on file Sexual Orientation Not on file Last Filed Vital Signs Vital Sign Reading Time Taken Comments Blood Pressure 97/61 04/07/2023 3:16 PM EDT Pulse 70 04/07/2023 3:16 PM EDT Temperature - - Respiratory Rate - - Oxygen Saturation 97% 04/07/2023 3:16 PM EDT Inhaled Oxygen Concentration - - Weight 102 kg (224 lb) 04/07/2023 3:16 PM EDT Height 165.1 cm (5' 5 ) 04/07/2023 3:16 PM EDT Body Mass Index 37.28 04/07/2023 3:16 PM EDT Plan of Treatment Not on file Insurance [employer] Care Teams Fan Blade Truer Relationship Specialty Start Date End Date Shaikh Main MD [address] [place] [address] PCP - General Family Medicine 04/07/23
--- OUTSIDE RECORDS SUMMARY | 2025-01-20 12:50 | XMS_ITS | Encounter Summary ---
Author Organization [facility] Address [address] [place] [address] Care Team Providers Care Crop Research Scientist Name Role Phone Shaikh NITHIN Main Primary Care Provider [phone] Shaikh NITHIN Main Primary Care Provider [phone] Molina De Anda MD Primary Care Provider [phone] Valerie Groves INTERACTIVE PRODUCER Unavailable [phone] Encounter Details Date Type Department Care Team (Late st Contact Info) Description 08/02/2023 Orders Only [facility] [address] [place] [address] Shaikh Main MD [address] [place] [address] Social History Tobacco Use Types Packs/Day Years [...] How often do you attend chur or jehovah's witness services? Patient declined 07/03/2023 Do you belong to any clubs o r organizations such as buddhism groups, unions, fraGekko or athletic groups, or school groups? No [...] Recorded Patient Health Questionnaire-2 Score 6 08/03/2023 [facility] Occupat ionct Health - Occupational Stress Questionnaire Answer Date [...] slept in a chcf (including now)? No 07/03/2023 Comments Unknown Sex [...] [facility] [address] [facility] [address] [place] [address] Karime Dias [facility] [address] [facility] [address] [place] [address] 02/05/2025 3:20 PM EDT Office Visit [facility] [address] [place] [address] Pascale Arana NP [address] [place] [address] documented as of this encounter Procedures Procedure Name Priority Date/Time Associated Diagnosis Comments MISCELLANEOUS LAB TEST Routine 07/28/2023 1:49 PM EST documented in this encounter Results * - Miscellaneous Test (07/28/2023 1:49 PM EST) Shaikh Etelvina [facility] BLOOD ORDERABLES Final Resu lt documented in this encounter Visit Diagnoses Not on filedocumented in this encounter Care Teams Crop Research Scientist Relationship Specialty Start Date End Date Shaikh Main MD PCP - General Internal Medicine 04/20/23 01/07/24 Shaikh Mian MD [address] [place] [address] PCP - General Internal Medicine 01/08/24 02/20/24 Molina De Anda MD [address] [place] [address] PCP - General Family Medicine 02/21/24 Valerie Groves NP [address] [place] [address] Nurse Practitioner Family Medicine 02/21/24 documented as of this encounter
--- OUTSIDE RECORDS SUMMARY | 2025-01-20 12:50 | XMS_ITS | Encounter Summary ---
Author Organization [facility] Address [address] [place] [address] Care Team Providers Care Build Engineer Name Role Phone Molina De Anda MD Primary Care Provider [phone] Valerie Groves PERFORMANCE MAKEUP ARTIST Unavailable [phone] Encounter Details Date Type Department Care Team (Late st Contact Info) Description 01/06/2025 Abstract [facility] [address] [place] [address] Pascale Arana NP [address] [place] [address] Social History Tobacco Use Types Packs/Day Years [...] How often do you attend chur or hinduism services? Never 08/07/2023 Do you belong to any clubs o r organizations such as nondenominational groups, unions, fraternal or athletic groups, or [...] Recorded Patient Health Questionnaire-2 Score 0 04/10/2024 [facility] [...] place to sleep or slept in a mcc (including now)? No 08/07/2023 Comments Unknown Sex and Gender Information Value Date Recorded Sex Assigned at Not on file Legal Sex Female 7:47 PM EDT Gender Identity Not on file Sexual Orientation Not on file documented as of this encounter Plan of Treatment Upcoming Encounters Date Type Department Care Team (Late st Contact Info) Description 01/22/2025 9:00 AM EDT Office Visit [facility] [address] [facility] [address] [place] [address] Karime Dias [facility] [address] [facility] [address] [place] [address] 02/05/2025 3:20 PM EDT Office Visit [facility] [address] [place] [address] Pascale Arana NP [address] [place] [address] documented as of this encounter Goals Goal [...] documented as of this encounter Care Teams Build Engineer Relationship Specialty Start Date End Date Molina De Anda MD [address] [place] [address] PCP - General Family Medicine 02/21/24 Valerie Groves NP [address] [place] [address] Nurse Practitioner Family Medicine 02/21/24 documented as of this encounter
--- OUTSIDE RECORDS SUMMARY | 2025-01-20 12:50 | XMS_ITS | Encounter Summary ---
Author Organization [facility] Address [address] [place] [address] Care Team Providers Care Windows Security Analyst Name Role Phone Molina De Anda MD Primary Care Provider [phone] Valerie Groves LENS BLOCKER Unavailable [phone] Encounter Details Date Type Department Care Team (Late st Contact Info) Description 01/06/2025 Abstract [facility] [address] [place] [address] Pascale Arana NP [address] [place] [address] Social History Tobacco Use Types Packs/Day Years [...] How often do you attend chur or hoahaoism services? Never 08/07/2023 Do you belong to [...] Recorded Patient Health Questionnaire-2 Score 0 04/10/2024 [facility] Questionnaire Answer Date Recorded [...] [facility] [address] [facility] [address] [place] [address] Karime Dias [facility] [address] [facility] [address] [place] [address] 02/05/2025 3:20 PM EDT Office Visit [facility] [address] [place] [address] Pascale Arana NP [address] [place] [address] documented as of this encounter Goals Goal [...] documented as of this encounter Care Teams Windows Security Analyst Relationship Specialty Start Date End Date Molina De Anda MD [address] [place] [address] PCP - General Family Medicine 02/21/24 Valerie Groves NP [address] [place] [address] Nurse Practitioner Family Medicine 02/21/24 documented as of this encounter
--- OUTSIDE RECORDS SUMMARY | 2025-01-20 12:50 | XMS_ITS | Clinical Summary ---
Author Organization [facility] Address [address] [place] [address] Care Team Providers Care Vallez Filter Operator Name Role Phone Shaikh NITHIN Main Primary Care Provider [phone] Allergies Active Allergy Reactions Criticality Noted Date [...] Active Active Problems No known active problems Family History Medical History Relation Name Comments Diabetes Father Heart failure Father Hypertension Father Brain Aneurysm Mother Diabetes Mother Diabetes Sister Relation Name Status Comments Father Mother Sister Social History Tobacco Use Types Packs/Day Years [...] 04/07/2023 3:16 PM EDT Plan of Treatment Health Maintenance Due Date Last Done Comments CT Colonography 1971 Colonoscopy 1971 Colorectal Cancer Screening 1971 FIT-DNA 1971 FIT 1971 FOBT 1971 Sigmoidoscopy 1971 Depression Screening 1983 Hepatitis B Vaccines (1 of 3 - 19+ 3-dose series) 1990 Pneumococcal Vaccine: Pediat rics (0 to 5 Years) and At-Risk Patients (6 to 64 Years) (1 of 2 - PCV) 1990 Pap Smear 1992 Adult Tetanus 1993 Cervical Cancer Screening 2001 HPV/Cotest 2001 Mammogram 2011 Zoster Vaccines (1 of 2) 2021 COVID-19 Vaccine ( - 2023-2 5 season) 2024 Influenza Vaccine (Season Ended) 2025 HIB Vaccines Aged Out No longer eligi ble based on patient's age to complete this topic HPV Vaccines Aged Out No longer eligi ble based on patient's age to complete this topic IPV Vaccines Aged Out No longer eligi ble based on patient's age to complete this topic Meningococcal B Vaccine Aged Out No l onger eligible based on patient's age to complete this topic Meningococcal Vaccine Aged Out No tasia susanne eligible based on patient's age to complete this topic Rotavirus Vaccines Aged Out No longer eligible based on patient's age to complete this topic Insurance [employer] Care Teams Vallez Filter Operator Relationship Specialty Start Date End Date Shaikh Main MD [address] [place] [address] PCP - General Family Medicine 04/07/23
--- OUTSIDE RECORDS SUMMARY | 2025-01-20 12:50 | XMS_ITS | Encounter Summary ---
Author Organization [facility] Address [address] [place] [address] Care Team Providers Care Outdoor Adventure Instructor Name Role Phone Molina De Anda MD Primary Care Provider [phone] Valerie Groves DAY HAUL OR FARM CHARTER BUS DRIVER Unavailable [phone] Encounter Details Date Type Department Care Team (Late st Contact Info) Description 11/28/2024 Results Follow-Up [facility] [address] [place] [address] Social History Tobacco Use Types [...] often do you attend chur ch or gnosticist services? Never 08/07/2023 Do you belong to [...] Patient Health Questionnaire-2 Score 0 04/10/2024 [facility] - [facility]ational Stress Questionnaire [...] place to sleep or slept in a residential (including now)? No 08/07/2023 Comments Unknown Sex and Gender Information Value Date Recorded Sex Assigned at Not on file Legal Sex Female 7:47 PM EDT Gender Identity Not on file Sexual Orientation Not on file documented as of this encounter Plan of Treatment Upcoming Encounters Date Type Department Care Team (Late st Contact Info) Description 01/22/2025 9:00 AM EDT Office Visit [facility] [address] [facility] [address] [place] [address] [facility] [address] [place] [address] [place] [address] 02/05/2025 3:20 PM EDT Office Visit [facility] [address] [address] Pascale Arana NP [address] [place] [address] documented as of this encounter Goals Goal [...] documented as of this encounter Care Teams Outdoor Adventure Instructor Relationship Specialty Start Date End Date Molina De Anda MD [address] [place] [address] PCP - General Family Medicine 02/21/24 Valerie Groves NP [address] [place] [address] Nurse Practitioner Family Medicine 02/21/24 documented as of this encounter
--- OUTSIDE RECORDS SUMMARY | 2025-01-20 12:50 | XMS_ITS | Encounter Summary ---
Author Organization [facility] Address [address] [place] [address] Care Team Providers Care Snowblower Mechanic Name Role Phone Molina De Anda MD Primary Care Provider [phone] Valerie Groves RECREATION SUPERVISOR Unavailable [phone] Encounter Details Date Type Department Care Team (Late st Contact Info) Description 01/06/2025 [facility]phone [facility] [address] [place] [address] Pascale Arana NP [address] [place] [address] Social History Tobacco Use Types Packs/Day Years [...] How often do you attend chur or quaker services? Never 08/07/2023 Do you belong to any clubs o r organizations such as moravian groups, unions, fraternal or athletic groups, or [...] Recorded Patient Health Questionnaire-2 Score 0 04/10/2024 [facility] Questionnaire Answer Date [...] her iron infusion can we check with [facility] about this [place] documented in this encounter Plan of Treatment Upcoming Encounters Date Type Department Care Team (Late st Contact Info) Description 01/22/2025 9:00 AM EDT Office Visit [facility] [address] [facility] [address] [place] [address] Karime Dias PMHNP-BC [address] [facility] [address] [place] [address] 02/05/2025 3:20 PM EDT Office Visit [facility] [address] [place] [address] Pascale Arana NP [address] [place] [address] documented as of this encounter Goals Goal [...] documented as of this encounter Care Teams Snowblower Mechanic Relationship Specialty Start Date End Date Molina De Anda MD [address] [place] [address] PCP - General Family Medicine 02/21/24 Valerie Groves NP [address] [place] [address] Nurse Practitioner Family Medicine 02/21/24 documented as of this encounter
--- OUTSIDE RECORDS SUMMARY | 2025-01-20 12:50 | XMS_ITS | Encounter Summary ---
Author Organization [facility] Address [address] [place] [address] Care Team Providers Care Energy Conservation Technician Name Role Phone Shaikh NITHIN Main Primary Care Provider [phone] Shaikh NITHIN Main Primary Care Provider [phone] Molina De Anda MD Primary Care Provider [phone] Valerie Groves WELDER GAS AUTOMATIC Unavailable [phone] Encounter Details Date Type Department Care Team (Late st Contact Info) Description 08/07/2023 Orders Only [facility] [address] [place] [place] [address] Shaikh Main MD [address] [place] [address] Social History Tobacco Use Types Packs/Day Years [...] 08/07/2023 How often do you attend chur [employer] or uatsdin services? Never 08/07/2023 Do you belong to any clubs o r organizations such as samaritan groups, unions, fraternal or athletic groups, or [...] Recorded Patient Health Questionnaire-2 Score 6 08/03/2023 [facility] - Occupational Stress Questionnaire Answer Date [...] [address] [place] [address] [place] [address] DiasKarime boo, PMHNP- [address] [place] [address] [place] [address] 02/05/2025 3:20 PM EDT Office Visit [facility] [address] [place] [address] Pascale Arana, [employer] [address] [place] [address] documented as of this encounter Goals Goal [...] documented as of this encounter Care Teams Energy Conservation Technician Relationship Specialty Start Date End Date Shaikh Main MD PCP - General Internal Medicine 04/20/23 01/07/24 Shaikh Main MD [address] [place] [address] PCP - General Internal Medicine 01/08/24 02/20/24 Molina De Anda MD [address] [place] [address] PCP - General Family Medicine 02/21/24 Valerie Groves NP [address] [place] [address] Nurse Practitioner Family Medicine 02/21/24 documented as of this encounter
--- OUTSIDE RECORDS SUMMARY | 2025-01-20 12:50 | XMS_ITS | Encounter Summary ---
Author Organization [facility] Address [address] [place] [address] Care Team Providers Care Behavioral Specialist Name Role Phone Molina De Anda MD Primary Care Provider [phone] Valerie Groves MANAGER JAVA Unavailable [phone] Reason for Visit * Reason Onset Date Comments Vaginitis/Bacterial Vaginosis 01/07/2025 Encounter Details Date Type Department Care Team (Late st Contact Info) Description 01/07/2025 [facility]phone [facility] [address] [place] [address] Pascale Arana NP [address] [place] [address] Vaginitis/Bacterial Vaginosis Social History Tobacco Use Types [...] How often do you attend chur or confucianism services? Never 08/07/2023 Do you belong to [...] Recorded Patient Health Questionnaire-2 Score 0 04/10/2024 [facility]at ional Health - Occupational Stress [...] Office Visit [facility] [address] [facility] [address] [place] [address] Dias Karime, PMHNP- [address] [facility] [address] [place] [address] 02/05/2025 3:20 PM EDT Office Visit [facility] [address] [place] [address] Pascale Arana NP [address] [place] [address] documented as of this encounter Goals Goal [...] documented as of this encounter Care Teams Behavioral Specialist Relationship Specialty Start Date End Date Molina De Anda MD [address] [place] [address] PCP - General Family Medicine 02/21/24 Valerie Groves NP [address] [place] [address] Nurse Practitioner Family Medicine 02/21/24 documented as of this encounter
--- OUTSIDE RECORDS SUMMARY | 2025-01-20 12:50 | XMS_ITS | Encounter Summary ---
Author Organization [facility] Address [address] [place] [address] Care Team Providers Care Mobile Tester Name Role Phone Molina De Anda MD Primary Care Provider [phone] Valerie Groves CUSTOMER RELATIONS REPRESENTATIVE Unavailable [phone] Reason for Visit * Reason Onset Date Comments Med Refill 11/18/2024 Encounter Details Date Type Department Care Team (Late st Contact Info) Description 11/18/2024 Refill [facility] [address] [place] [address] Molina De Anda MD [address] [place] [address] Plantar fasciitis of right foot (Primary Dx) [...] How often do you attend chur or religion services? Never 08/07/2023 Do you belong to any clubs o r organizations such as catholic groups, unions, fraternal or athletic groups, or [...] Recorded Patient Health Questionnaire-2 Score 0 04/10/2024 [facility] Occupat ional Health - Occupational [...] 01/22/2025 9:00 AM EDT Office Visit [facility] [address] [facility] [address] [place] [address] [facility] [address] [facility] [address] [place] [address] 02/05/2025 3:20 PM EDT Office Visit [facility] [address] [place] [address] Pascale Arana NP [address] [place] [address] documented as of this encounter Goals Goal [...] documented as of this encounter Care Teams Mobile Tester Relationship Specialty Start Date End Date Molina De Anda MD [address] [place] [address] PCP - General Family Medicine 02/21/24 Valerie Groves NP [address] [place] [address] Nurse Practitioner Family Medicine 02/21/24 documented as of this encounter
--- OUTSIDE RECORDS SUMMARY | 2025-01-20 12:50 | XMS_ITS | Encounter Summary ---
Author Organization [facility] Address [address] [place] [address] Care Team Providers Care Weight Control Engineer Name Role Phone Molina De Anda MD Primary Care Provider [phone] Valerie Groves ARCHITECTURAL ENGINEER Unavailable [phone] Encounter Details Date Type Department Care Team (Late st Contact Info) Description 01/06/2025 Bamboo flowsheet [facility] [address] [place] [address] Pascale Arana NP [address] [place] [address] Social History Tobacco Use Types Packs/Day Years [...] How often do you attend chur or anabaptism services? Never 08/07/2023 Do you belong to any clubs o r organizations such as hinduism groups, unions, fraternal or athletic groups, or [...] Recorded Patient Health Questionnaire-2 Score 0 04/10/2024 [facility] - Occupational Stress Questionnaire [...] 01/22/2025 9:00 AM EDT Office Visit [facility] [address] [facility] [address] [place] [address] Karime Dias [facility] [address] [facility] [address] [place] [address] 02/05/2025 3:20 PM EDT Office Visit [facility] [address] [place] [address] Pascale Arana NP [address] [place] [address] documented as of this encounter Goals Goal [...] documented as of this encounter Care Teams Weight Control Engineer Relationship Specialty Start Date End Date Molina De Anda MD [address] [place] [address] PCP - General Family Medicine 02/21/24 Valerie Groves NP [address] [place] [address] Nurse Practitioner Family Medicine 02/21/24 documented as of this encounter
--- OUTSIDE RECORDS SUMMARY | 2025-01-20 12:50 | XMS_ITS | Encounter Summary ---
Author Organization [facility] Address [address] [place] [address] Care Team Providers Care Java Sybase Developer Name Role Phone Molina De Anda MD Primary Care Provider [phone] Valerie Groves BREAK OUT MAN Unavailable [phone] Encounter Details Date Type Department Care Team (Late st Contact Info) Description 01/15/2025 [facility] [address] [place] [address] Pascale Arana NP [address] [place] [address] Social History Tobacco Use Types Packs/Day Years [...] How often do you attend chur or uatsdin services? Never 08/07/2023 Do you belong to any clubs o r organizations such as faith groups, unions, fraternal or athletic groups, or [...] Recorded Patient Health Questionnaire-2 Score 0 04/10/2024 [facility] Questionnaire Answer Date [...] * Telephone Encounter - LIZANDRO PICKARD - 01/15/2025 3:21 PM EDT Text Credit Interviewer Hi, this is true stage calling about Talia Limon's disability claim. I did receive a facts from the office earlier today and I just had some additional questions about the information that was received. If you could give us a call back in [phone] greatly appreciate it. Thanks. Naomi. documented in this encounter Plan of Treatment Upcoming Encounters Date Type Department Care Team (Late st Contact Info) Description 01/22/2025 9:00 AM EDT Office Visit [facility] [address] [facility] [address] [place] [address] Karime Dias, MARCELINOHNP- [address] [facility] [address] [place] [address] 02/05/2025 3:20 PM EDT Office Visit [facility] [address] [place] [address] Pascale Arana NP [address] [place] [address] documented as of this encounter Goals Goal [...] documented as of this encounter Care Teams Java Sybase Developer Relationship Specialty Start Date End Date Molina De Anda MD [address] [place] [address] PCP - General Family Medicine 02/21/24 Valerie Groves NP [address] [place] [address] Nurse Practitioner Family Medicine 02/21/24 documented as of this encounter
--- OUTSIDE RECORDS SUMMARY | 2025-01-20 12:50 | XMS_ITS | Encounter Summary ---
Author Organization [facility] Address [address] [place] [address] Care Team Providers Care Refractive Surgeon Name Role Phone Molina De Anda MD Primary Care Provider [phone] Valerie Groves MOTOR BIKE MECHANIC Unavailable [phone] Reason for Visit * Reason Comments Med Refill Encounter Details Date Type Department Care Team (Late st Contact Info) Description 01/14/2025 Refill [facility] [address] [place] [address] Pascale Arana NP [address] [place] [address] URTI (acute upper respiratory infection); Non-recurrent acute [...] 08/07/2023 How often do you attend chur Preventsys or judaism services? Never 08/07/2023 Do you belong to any clubs o r organizations such as anabaptist groups, unions, fraternal or athletic groups, or [...] Patient Health Questionnaire-2 Score 0 04/10/2024 [facility] Occupat ional Health - [...] [facility] [address] [facility] [address] [place] [address] Karime Dias [facility] [address] [facility] [address] [place] [address] 02/05/2025 3:20 PM EDT Office Visit [facility] [address] [place] [address] Pascale Arana NP [address] [place] [address] documented as of this encounter Goals Goal [...] documented as of this encounter Care Teams Refractive Surgeon Relationship Specialty Start Date End Date Molina De Anda MD [address] [place] [address] PCP - General Family Medicine 02/21/24 Valerie Groves NP [address] [place] [address] Nurse Practitioner Family Medicine 02/21/24 documented as of this encounter
--- OUTSIDE RECORDS SUMMARY | 2025-01-20 12:51 | XMS_ITS | Clinical Summary ---
Author Organization [facility] Address [address] [place] [address] Care Team Providers Care Photo Finish Photographer Name Role Phone Molina De Anda MD Primary Care Provider [phone] Valerie Groves LOGISTICS CENTER MANAGER Unavailable [phone] Allergies Active Allergy Reactions Criticality Noted Date [...] by mouth Daily 90 capsule 1 11/20/19 025 Active zolpidem (Ambien) 10 MG tabletIndicati ons:Psychophys iological insomnia Take 1 tablet (10 mg) by mouth as needed at bedtime for sleep 30 tablet 2 11/19/19 25 Active pantoprazole (ProtoNix) 40 MG EC tabletIndicati ons:Gastroesop hageal reflux disease, unspecified whether esophagitis present Take 1 tablet (40 mg) by mouth Daily Do not crush, chew, or split. 90 tablet 11/21/19 025 Active lamoTRIgine (LaMICtal) 25 MG tabletIndicati ons:Bipolar disorder with severe depression (HCC) 1 pill at bedtime for 2 weeks, then increase to 1 pill twice a day 60 tablet 01/07/20 25 Active albuterol HFA 90 mcg/act inhalerIndicat ions:URTI (acute upper respiratory infection),Non -recurrent acute suppurative otitis media of both ears without spontaneous rupture of tympanic membranes Inhale 2 puffs every 6 (six) hours if needed for wheezing 18 g 01/15/20 25 025 Active citalopram (CeleXA) 40 MG tabletIndicati ons:Bipolar disorder [...] morning. Take before meals. 30 tablet 11/21/19 25 025 Discontinued( erapy completed) albuterol HFA 90 mcg/act inhalerIndicat ions:URTI (acute upper respiratory infection),Non -recurrent acute suppurative otitis media of both ears without spontaneous rupture of tympanic membranes Inhale 2 puffs every 4 (four) hours if needed for wheezing 18 g 12/21/19 25 025 Discontinued lansoprazole (Prevacid) [address] capsule Take [...] will cut her current pill in half BMI 32.0-32.9,adult 10/23/2024 Encounter for screening mamm ogram for malignant neoplasm of breast 10/02/2024 Overactive bladder due to prolapse of female gen ital organ 10/02/2024 Headache, menstrual migraine, with status migrai nosus 08/12/2024 Malaise and fatigue 08/12/2024 Detrusor muscle hypertonia 08/12/2024 Class 1 obesity [...] Date UTI (urinary tract infection), uncomplicated 11/20/2024 Well woman exam with routine gynecological exam 10/23/2024 01/15/2025 Assessment & Plan (11/20/2024 4:32 PM EDT): Thin prep: fu as per pap indications Monthly BSE Weight bearing exercise as well BMI 34.0-34.9,adult 10/02/2024 10/24/19 Female genital symptoms 08/12/202412/22 Problem related to unspecifi ed psychosocial circumstances 08/12/2024 01/15/2025 Smoking 08/12/2024 10/02/2024 Stress 08/12/2024 01/15/2025 Assessment & Plan (01/06/2025 6:09 PM EDT): See bipolar entry Dysmenorrhea 08/12/2024 11/20/2024 Acute non-recurrent maxillary sinusitis 08/12/2024 10/02/2024 Assessment & Plan (08/12/2024 4:41 PM EST): Zithromax , finish atb Fluids, rest Fu if not better, add steroid nasal spray Cutaneous abscess of abdominal wall 08/12/2024 11/20/2024 Overview (08/12/2024): Dori [id number] EXP: 10/22/2026 LOT # [id number] Assessment & Plan (08/12/2024 5:50 PM EST): [...] Encounters Date Type Department Care Team Description 01/15/[address] [facility] [address] [place] [address] Pascale Arana NP 01/14/2025 Clinisync Result Encounter NOMS External Department Unsolicited Pascale Arana NP 01/14/[address] [facility] [address] [place] [address] Pascale Arana NP URTI (acute upper respiratory infection); Non-recurrent acute suppurative otitis media of both ears without spontaneous rupture of tympanic membranes 01/08/[address] [facility] [address] [place] [phone] Pascale Arana NP 01/07/[address] [facility] [address] [place] [address] Pascale Arana NP B12 deficiency (Primary Dx); Iron deficiency anemia secondary to inadequate dietary iron intake 01/07/[address] [facility] [address] [place] [address] Pascale Arana NP Vaginitis/Bacterial Vaginosis 01/06/2025 4:30 PM EDT Office Visit [facility] [address] [place] [address] Pascale Arana NP Bipolar disorder with severe depression (HCC) (Primary Dx); Gastroesophageal reflux disease, unspecified whether esophagitis present; Class 1 obesity due to excess calories without serious comorbidity with body mass index (BMI) of 32.0 to 32.9 in adult; Cigarette nicotine dependence without complication; Stress; Fibromyalgia; Psychophysiological insomnia 01/06/[address] [facility] [address] [place] [phone] Pascale Arana NP 01/06/[address] [facility] [address] [place] [address] Pascale Arana NP 01/06/[address] [facility] [address] [place] [address] Pascale Arana, MARY JO 01/06/[address] [facility] [address] [place] [address] Pascale Arana NP 12/18/[address] [facility] [address] [place] [phone] Pascale Arana, MARY JO URTI (acute upper respiratory infection); Non-recurrent acute suppurative otitis media of both ears without spontaneous rupture of tympanic membranes 11/28/2024 Results Follow-Up [facility] [address] [place] [phone] 11/20/2024 3:20 PM EDT Procedure Visit [facility] [address] [place] [phone] Pascale Arana, MARY JO Well woman exam with routine gynecological exam [...] Pascale Arana NP 11/20/[address] [facility] [address] [place] [address] Pasacle Arana NP 11/18/[address] [facility] [address] [place] [address] Pascale Arana NP 11/18/2024 Refill [facility] [address] [place] [address] Molina De Anda MD Psychophysiological insomnia 11/18/2024 Refill [facility] [address] [place] [address] Molina De Anda MD Fibromyalgia 11/18/2024 Refill [facility] [address] [place] [address] Molina De Anda MD Fibromyalgia 11/18/2024 Refill [facility] [address] [place] [address] Molina De Anda MD Bipolar disorder with severe depression (HCC) 11/18/2024 Refill [facility] [address] [place] [address] Pascale Arana NP Gastroesophageal reflux disease, unspecified whether esophagitis present 11/18/2024 Refill [facility] [address] [place] [address] Pascale Arana NP Overactive bladder due to prolapse of female genital organ 11/18/2024 Refill [facility] [address] [place] [address] Pascale Arana NP Fibromyalgia 11/18/2024 Refill [facility] [address] [place] [address] Pascale Arana NP Environmental and seasonal allergies 11/18/2024 Refill [facility] [address] [place] [address] Molina De Anda MD Plantar fasciitis of right foot (Primary Dx) 11/18/2024 Refill [facility] [address] [place] [address] Pascale Arana NP URTI (acute upper respiratory infection); Non-recurrent acute suppurative otitis media of both ears without spontaneous rupture of tympanic membranes 11/14/[address] [facility] [address] [place] [phone] Pascale Arana NP UTI (urinary tract infection), uncomplicated (Primary Dx) 11/14/[address] [facility] [address] [place] [address] Pascale Arana NP Medication Question 10/23/2024 5:30 PM EDT Office Visit [facility] [address] [place] [address] Pascale Arana NP Iron deficiency anemia secondary to inadequate dietary iron intake (Primary Dx); Class 1 obesity due to excess calories without serious comorbidity in adult, unspecified BMI; Cigarette nicotine dependence without complication; B12 deficiency; BMI 32.0-32.9,adult 10/23/2024 Clinisync Result Encounter NOMS External Department Unsolicited Pascale Arana NP 10/23/[address] [facility] [address] [place] [address] Molina De Anda MD URTI (acute upper [...] week 08/07/2023 How often do you attend [facility] or quaker services? Never 08/07/2023 Do you belong to any clubs o r organizations such as jewish groups, unions, fraternal or athletic groups, or [...] Recorded Patient Health Questionnaire-2 Score 0 04/10/2024 [facility] - Occupational [...] 01/22/2025 9:00 AM EDT Office Visit [facility] [address] [place] [address] [place] [address] Karime Dias, PMHNP-BC [address] [place] [address] [place] [address] 02/05/2025 3:20 PM EDT Office Visit [facility] [address] [place] [phone] Pascale Arana, LOGISTICS CENTER MANAGER [address] [place] [address] Health Maintenance Due Date Last Done Comments [...] Patient on antidepressant monitoring plan No Shaikh Mian MD Procedures Procedure Name Priority Date/Time Associated Diagnosis Comments TRANSFERRIN Routine 01/14/2025 12:49 PM EDT VITAMIN B12 Routine 01/14/2025 12:49 PM EDT [facility] FERRITIN Routine 01/14/2025 12:49 PM EDT METRO IRON AND TIBC Routine 01/14/2025 1 2:49 PM EDT ALL CBC WITH AUTO DIFF Routine 12:49 PM EDT IGP,APTIMA HPV,AGE GDLN Routine 11/20/2024 4:05 PM EDT SCANNED LABS Routine 11/18/2024 2:41 PM EDT URINARY TRACT INFECTION (HTRX) Routine 11/14/2024 12:00 AM EDT MM TOMOSYNTHESIS SCREENING BI 10/23/2024 3:55 PM EDT from Last 3 Months Results * (ABNORMAL) VITAMIN B12 (01/14/2025 12:49 PM EDT) VITAMIN B12 >2000(A) 232 - 1245 pg/mL [facility] Comment: Performed at: [address] [id number] Sales Service Coordinator: Hector Franco PhD, Phone: [phone] 01/14/2025 12:4 9 PM EDT 01/14/2025 12:50 PM EDT Narrative CLINIS[facility]NC - 01/15/2025 4:07 AM EDT us Pascale Arana LOGISTICS CENTER MANAGER LAB BLOOD ORDERABLES Final Resu lt [facility] TB * TRANSFERRIN (01/14/2025 12:49 PM EDT) Pathologist [facility] TRANSFERRIN 296 192 - 364 mg/dL [facility] Comment: Performed at: [address] [id number] Sales Service Coordinator: Hector Franco PhD, Phone: [phone] 01/14/2025 12:4 9 PM EDT 01/14/2025 12:50 PM EDT Narrative CLINISYNC - 01/15/2025 5:07 AM EDT Pascale Arana NP LAB BLOOD ORDERABLES Final Resu lt Performing Organization Address [facility] Co de Phone Number [facility] * METRO IRON AND TIBC (01/14/2025 12:49 PM EDT) TB IRON 54.0 50.0 - 170.0 ug/dL [facility] TBH TOTAL IRON BINDING CAPACITY 387.0 250.0 - 450.0 ug/dL TB TB PERCENT IRON SATURATION 14.0 % [facility] 01/14/2025 12:4 9 PM EDT 01/14/2025 12:50 PM EDT Narrative CLINISYNC - 01/14/2025 1:50 PM EDT Pascale Arana NP CLINISYNC Final Result Performing Organization Address [facility] de Phone Number [facility] * [facility] FERRITIN (01/14/2025 12:49 PM EDT) Pathologist [facility] FERRITIN 10.0 8.0 - 252.0 ng/mL TB 01/14/2025 12:4 9 PM EDT 01/14/2025 12:50 PM EDT Narrative CLINISYNC - 01/14/2025 2:05 PM EDT Pascale Arana NP CLIN[facility]NC Final Result Performing Organization Address [facility] de Phone Number [facility] TB * (ABNORMAL) ALL CBC WITH AUTO DIFF (01/14/2025 12:49 PM EDT) TB WBC 6.1 4.0 - 11.0 10 3/uL [facility] TBH RBC 4.12(L) 4.20 - 5.40 10 6/uL [facility] TBH HGB 11.8(L) 12.0 - 16.0 g/dL TB TB HCT 36.2 36.0 - 48.0 % TBH [...] us Pascale Arana NP [facility] Final Result [facility] * (ABNORMAL) IGP,APTIMA HPV,AGE GDLN (11/20/2024 4:05 PM EDT) Pathologist [facility] AGE GDLN ACOG TESTING Note . TB Comment: TESTS RESULT FLAG UNITS REF RANGE LAB Clinician Provided Cytology Information Source.............Cervix;Endocervix No. of containers..01 ThinPrep Vial Age Radha Barros... 31 FLAG LEGEND: L-Low Normal,H-High Normal,LL-Alert Low,HH-Alert High <-Panic Low,>-Panic High,A-Abnormal,AA-Critical Abnormal Performed at: 01 =G [facility] [address] [place] [address] Monika Norton MD, IGP, APTIMA HPV, RFX 16/18,45 Note . [facility] Comment: TESTS RESULT FLAG UNITS REF RANGE LAB DIAGNOSIS: 02 NEGATIVE FOR INTRAEPITHELIAL LESION OR MALIGNANCY. Specimen adequacy: 02 Satisfactory for evaluation. Endocervical and/or squamous metaplastic cells (endocervical component) are present. Performed by: 02 Carrol Guerrero [employer] . 02 Note: Note 02 The Pap [...] <-Panic Low,>-Panic High,A-Abnormal,AA-Critical Abnormal Performed at: [address] [address] Monika Norton MD, HPV APTIMA Positive(A) Negative [facility] Comment: This nucleic acid amplification test detects fourteen high- risk HPV types (16,18,31,33,35,39,45,51,52,56,58,59,66,68) without differentiation. HPV GENOTYPE 16 Negative Negative [facility] HPV GENOTYPE 18,45 Negative Negative [facility] Comment: Performed at: =[address] [id number] Sales Service Coordinator: Monika Norton MD, Phone: [phone] Performed at: [address] [id number] Sales Service Coordinator: Monika Norton MD, Phone: [phone] 11/20/2024 4:05 PM EDT 11/21/2024 7:10 AM EDT Narrative MATTIE - 11/26/2024 8:08 PM EDT BRUSH-ALONE CERVIX ENDOCERVIX us Pascale Arana NP LAB BLOOD ORDERABLES Final Resu lt [facility] * SCANNED LABS (11/18/2024 2:41 PM EDT) us Pascale Arana LOGISTICS CENTER MANAGER LAB CHG PERFORMABLES Final Resu lt * URINARY TRACT INFECTION (HTRX) (11/14/2024 12:00 AM EDT) [facility] ACINETOBACTER BAUMANII 0.000 19.961 - 24.689 ppm 11/16/2024 10:36 AM EDT [facility] ACINETOBACTER BAUMANII Not Detected 19.961 - 24.689 ppm 11/16/2024 10:36 AM EDT [facility] CITROBACTER FREUNDII 0.000 23.000 - 31.881 ppm 11/16/2024 10:36 AM EDT [facility] CITROBACTER FREUNDII Not Detected 23.000 - 31.881 ppm 11/16/2024 10:36 AM EDT [facility] ENTEROBACTER AEROGENES, CLOACAE 0.000 23.000 - 31.535 ppm 11/16/2024 10:36 AM EDT [facility] ENTEROBACTER AEROGENES, CLOACAE Not Detected 23.000 - 31.535 ppm 11/16/2024 10:36 AM EDT [facility] ENTEROCOCCUS FAECALIS, FAECIUM 0.000 26.000 - 31.575 ppm 11/16/2024 10:36 AM EDT [facility] ENTEROCOCCUS FAECALIS, FAECIUM Not Detected 26.000 - 31.575 ppm 11/16/2024 10:36 AM EDT [facility] ESCHERICHIA COLI 0.000 23.000 - 28.500 ppm 11/16/2024 10:36 AM EDT [facility] ESCHERICHIA COLI Not Detected 23.000 - 28.500 ppm 11/16/2024 10:36 AM EDT [facility] KLEBSIELLA PNEUMONIAE, OXYTOCA 0.000 23.000 - 30.500 ppm 11/16/2024 10:36 AM EDT [facility] KLEBSIELLA PNEUMONIAE, OXYTOCA Not Detected 23.000 - 30.500 ppm 11/16/2024 10:36 AM EDT [facility] MORGANELLA MORGANII 0.000 19.961 - 24.689 ppm 11/16/2024 10:36 AM EDT [facility] MORGANELLA MORGANII Not Detected 19.961 - 24.689 ppm 11/16/2024 10:36 AM EDT [facility] PROTEUS MIRABILIS, VULGARIS 0.000 23.000 - 28.500 ppm 11/16/2024 10:36 AM EDT [facility] PROTEUS MIRABILIS, VULGARIS Not Detected 23.000 - 28.500 ppm 11/16/2024 10:36 AM EDT [facility] PSEUDOMONAS AERUGINOSA 0.000 23.000 - 28.500 ppm 11/16/2024 10:36 AM EDT [facility] PSEUDOMONAS AERUGINOSA Not Detected 23.000 - 28.500 ppm 11/16/2024 10:36 AM EDT [facility] STAPHYLOCOCCUS AUREUS 0.000 26.000 - 30.902 ppm 11/16/2024 10:36 AM EDT [facility] STAPHYLOCOCCUS AUREUS Not Detected 26.000 - 30.902 ppm 11/16/2024 10:36 AM EDT [facility] STREPTOCOCCUS AGALACTIAE (GROUP B STREP) 0.000 26.000 - 32.222 ppm 11/16/2024 10:36 AM EDT [facility] STREPTOCOCCUS AGALACTIAE (GROUP B STREP) Not Detected 26.000 - 32.222 ppm 11/16/2024 10:36 AM EDT [facility] TEJINDER ALBICANS, PARAPSILOSIS, TROPICALIS 0.000 19.961 - 30.770 ppm 11/16/2024 10:36 AM EDT [facility] TEJINDER ALBICANS, PARAPSILOSIS, TROPICALIS Not Detected 19.961 - 30.770 ppm 11/16/2024 10:36 AM EDT [facility] TEJINDER GLABRATA 0.000 23.000 - 32.138 ppm 11/16/2024 10:36 AM EDT [facility] TEJINDER GLABRATA Not Detected 23.000 - 32.138 ppm 11/16/2024 10:36 AM EDT [facility] TEJINDER KRUSEI 0.000 23.000 - 32.271 ppm 11/16/2024 10:36 AM EDT [facility] TEJINDER KRUSEI Not Detected 23.000 - 32.271 ppm 11/16/2024 10:36 AM EDT [facility] SERRATIA MARCESCENS 0.000 23.000 - 31.204 ppm 11/16/2024 10:36 AM EDT [facility] SERRATIA MARCESCENS Not Detected 23.000 - 31.204 ppm 11/16/2024 10:36 AM EDT [facility] STREPTOCOCCUS PYOGENES (GROUP A STREP) 0.000 19.961 - 24.689 ppm 11/16/2024 10:36 AM EDT [facility] STREPTOCOCCUS PYOGENES (GROUP A STREP) Not Detected 19.961 - 24.689 ppm 11/16/2024 10:36 AM EDT [facility] STAPHYLOCOCCUS EPIDERMIDIS, HAEMOLYTICUS, LUGDUNENSIS, SAPROPHYTICUS (URINA 0.000 19.961 - 24.689 ppm 11/16/2024 10:36 AM EDT [facility] STAPHYLOCOCCUS EPIDERMIDIS, HAEMOLYTICUS, LUGDUNENSIS, SAPROPHYTICUS (URINA Not Detected 19.961 - 24.689 ppm 11/16/2024 10:36 AM EDT [facility] STAPHYLOCOCCUS EPIDERMIDIS, HAEMOLYTICUS, LUGDUNENSIS, SAPROPHYTICUS (URINA 0.000 19.961 - 24.689 ppm 11/16/2024 10:36 AM EDT [facility] STAPHYLOCOCCUS EPIDERMIDIS, HAEMOLYTICUS, LUGDUNENSIS, SAPROPHYTICUS (URINA Not Detected 19.961 - 24.689 ppm 11/16/2024 10:36 AM EDT [facility] Urine 11/14/2024 11/16/2024 5:2 3 AM EDT us Pascale Arana NP LAB BLOOD ORDERABLES Final Resu lt [facility] [place] [address] * MM TOMOSYNTHESIS SCREENING BI (10/23/2024 3:55 PM EDT) Anatomical Region Laterality Modality Other 10/23/2024 3:55 PM EDT Narrative 10/23/2024 3:55 [place] [address] Mammography Report Signed Patient: TALIA RUTHERFORD MR#: [id number] : 1970 Acct:[id number] Age/Sex: 54 / F ADM Date: 10/23/24 Loc: MAMMO Attending Dr: Pascale Arana NP Ordering Physician: Pascale Arana NP Results: Date of Service: 10/23/24 Follow Up: Procedure(s): MM tomosynthesis screening BI Accession Number(s): [id number] cc: Pascale Arana NP Patient Name: TALIA RUTHERFORD MR#: [id number] : 1970 Exam Date: 10/23/2024 Ordering Doctor: [...] breast cancer at age 51. LOCATION: [facility] BREAST COMPOSITION: There are scattered areas of [...] Massey M.D. Signed By: 10/23/24 1555 DD/ 54 TD/TT: Telegraph And Teletype Operator: Procedure Note Radiology, Radiologist, MD - 10/23/2024 [place] [address] Mammography Report Signed Patient: TALIA RUTHERFORD DMR#: [id number] : 1970Acct:[id number] Age/Sex: 54 / FADM Date: 10/23/24 Loc: MAMMO Attending Dr: Pascale Arana LOGISTICS CENTER MANAGER Ordering Physician: Pascale Aranaesults: Date of Service: 10/23/24Follow Up: Procedure(s): MM tomosynthesis screening BI Accession Number(s): [id number] cc: Pascale Arana NP Patient Name: TALIA RUTHERFORD MR#: [id number] : 1970 Exam Date: 10/23/2024 Ordering Doctor: [...] breast cancer at age 51. LOCATION: [facility] BREAST COMPOSITION: There are scattered areas of [...] M.D. Signed By:10/23/24 1555 DD/ 1555 TD/TT: Telegraph And Teletype Operator: Pascale Arana NP [facility] IMAGING Final Result from Last 3 Months Additional Health Concerns Active Problems Noted Date Diagnosed Date Patient on antidepressant monitoring plan 2023 Insurance [facility] Address: [place] [id number] [place] [phone] Care Teams Photo Finish Photographer Relationship Specialty Start Date End Date Molina De Anda MD [address] [place] [address] PCP - General Family Medicine 02/21/24 Valerie Groves NP [address] [place] [address] Nurse Practitioner Family Medicine 02/21/24
--- NOTE | 2025-01-20 13:41 | PM.CN ---
Consult Note: HPI Data of Consult Patient: new to practice Consult date: 01/20/25 Requesting Physician: Bandar Eden MD Primary Care Provider: Pascale Arana NP Consult Narrative Reason for consult: neck, right shoulder/arm, low back, right leg pain and weakness Narrative: 54yof who presents for evaluation. worsening pain throughout low back with radiation into right leg. has had falls recently and has noticed foot drop. lumbar xr shows multilevel degenerative changes in lower lumbar spine. notes pain in neck that radiates into right shoulder/arm region. has completed >6 weeks of provider directed home exercise program, without lasting benefit. also longstanding history of chiropractic therapy >3 months. uses gabapentin, mobic. denies adverse med side effects. cc:: CC: Bandar Eden MD Review of Systems ROS Status of ROS 10 or more systems reviewed and unremarkable except as noted in history and below [facility] Medical History Overactive bladder ?N32.81 - Overactive bladder (ICD-10) Obesity ?E66.9 - Obesity, unspecified (ICD-10) Nicotine dependence ?F17.200 - Nicotine dependence, unspecified, uncomplicated (ICD-10) History of cystocele ?Z87.448 - Personal history of other diseases of urinary system (ICD-10) PVD (peripheral vascular disease) ?I73.9 - Peripheral vascular disease, unspecified (ICD-10) Iron deficiency anemia ?D50.9 - Iron deficiency anemia, unspecified (ICD-10) Fibromyalgia ?M79.7 - Fibromyalgia (ICD-10) Bipolar disorder ?F31.9 - Bipolar disorder, unspecified (ICD-10) UGIB (upper gastrointestinal bleed) ?K92.2 - Gastrointestinal hemorrhage, unspecified (ICD-10) Anxiety with depression ?F41.8 - Other specified anxiety disorders (ICD-10) Gastro-esophageal reflux ?K21.9 - Gastro-esophageal reflux disease without esophagitis (ICD-10) Arthritis of left foot ?M19.072 - Primary osteoarthritis, left ankle and foot (ICD-10) RP (rectal prolapse) ?K62.3 - Rectal prolapse (ICD-10) Chronic headache ?R51.9 - Headache, unspecified (ICD-10) ?G89.29 - Other chronic pain (ICD-10) Surgical History History of tubal ligation ?Z98.51 - Tubal ligation status (ICD-10) Hx of cholecystectomy ?Z90.49 - Acquired absence of other specified parts of digestive tract (ICD-10) H/O cystoscopy ?Z98.890 - Other specified postprocedural states (ICD-10) H/O esophagogastroduodenoscopy ?Z98.890 - Other specified postprocedural states (ICD-10) Hx of gastric bypass ?Z98.84 - Bariatric surgery status (ICD-10) Family History Mother Family history of diabetes mellitus Father Heart disease Social History Within the past year, how often did you have a drink containing alcohol: never Within the past year, how often did you have six or more drinks on one occasion: never Score interpretation: A score less than 3 is consistent with normal alcohol consumption. 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 Known occupational exposures/hazards: No Highest level of school completed/degree received: high school graduate Little interest or pleasure in doing things: not at all Feeling down, depressed, or hopeless: not at all Do you think of yourself as: straight/heterosexual Gender Identity: female Meds Home Medications and Allergies Home Medications ?Medication ?Instructions ?Recorded ?Confirmed ?Type lansoprazole 30 mg capsule,delayed 30 mg PO DAILY 02/08/23 07/19/23 History release duloxetine 30 mg capsule,delayed 60 mg PO DAILY 06/19/23 07/19/23 History release (Cymbalta) ferrous sulfate 325 mg (65 mg 325 mg PO DAILY 06/19/23 07/19/23 History iron) tablet (Feosol) fexofenadine-pseudoephedrine ER 1 tab PO Q24H PRN allergy symptoms 06/19/23 07/19/23 History 180 mg-240 mg tablet,ext.release 24 hr (Allergy Relief-D (fexofenadine)) tolterodine 4 mg capsule,extended 4 mg PO DAILY 06/19/23 07/19/23 History release 24 hr (Detrol LA) bupropion HCl 100 mg tablet 150 mg PO DAILY 07/11/23 07/19/23 History zolpidem 10 mg tablet (Ambien) 10 mg PO DAILY PRN insomnia 07/11/23 07/19/23 History hyoscyamine sulfate 0.125 mg 0.125 mg PO Q6H PRN abdominal pain 02/26/24 Rx tablet (Levsin) #12 tabs magnesium citrate (Citrate of 296 ml PO DAILY constipation #296 02/26/24 Rx Magnesia oral) mL ondansetron 4 mg disintegrating 4 mg PO Q6H PRN nausea and 02/26/24 Rx tablet vomiting #12 tabs pantoprazole 40 mg tablet,delayed 40 mg PO DAILY #7 tabs 02/26/24 Rx release (Protonix) sucralfate 1 gram tablet (Carafate) 1 g PO Q6H PRN abdominal pain #12 02/26/24 Rx tabs hydrocodone 5 mg-acetaminophen 325 1 tab PO Q6H PRN pain 3 days #12 08/01/24 Rx mg tablet tabs methocarbamol 750 mg tablet 750 mg PO TID PRN pain #20 tabs 08/01/24 Rx methylprednisolone 4 mg tablets in See Rx Instructions .Route 08/01/24 Rx a dose pack (Medrol (Lion)) .COMPLEX #21 ea Allergies Allergy/AdvReac Type Severity Reaction Status Date / Time Penicillins Allergy Severe Hives Verified 08/01/24 12:59 Exam Narrative Exam Narrative: Psych-alert and oriented x 3. Attentive and appropriate, constitutionally normal, displays normal mood and affect per situation. There are no obvious deficits in memory, reasoning, or intellect.? Skin-no obvious rashes, bruising, erythema noted to the patient's area of pain.? Extremities- extremities are warm with minimal edema and palpable pulses. Cervical- tenderness to palpation noted in the cervical spine and paraspinal musculature.? Pain is elicited with flexion, extension, and lateral rotation of the cervical spine.? Range of motion is diminished due to pain. Facet loading maneuvers are positive.? Strength-unremarkable and within normal limits with the exception to the right biceps. Sensory-no notable sensory deficits in the bilateral upper extremities to touch or pinprick with the exception to decreased sensation to the right C5, 6 dermatomal distribution. Lumbar-tenderness to palpation noted in the lumbar spine and paraspinal musculature. Pain is not elicited with flexion, extension, and lateral rotation of the lumbar spine. Range of motion is not diminished with these motions. Facet loading maneuvers are negative.? Strength-noted to be unremarkable with the exception of decreased strength rated at 4 out of 5 in right quadriceps femoris, anterior tibialis. Sensory-no notable sensory deficits in the bilateral lower extremities to touch or pinprick in all dermatomal distributions with the exception to decreased sensation to the right L4, 5 dermatomal distribution Coordination remains intact.? Gait remains non-antalgic. Assessment and Plan Assessment and Plan (1) Cervical stenosis of spinal canal: (2) Lumbar stenosis with neurogenic claudication: Plan 54yof who presents for evaluation. failed conservative measures, as noted. imaging reviewed, as noted. given symptoms and imaging, would like to obtain advanced imaging. will order cervical and lumbar mri without contrast. she is in agreement. meds reviewed, will trial flexeril 10mg tid prn. follow up after imaging.
== END 2025-01-20 12:48 | disposition home or self-care (01) ==
LOC: PM 12:48
PROVIDERS: PCP Nurse Practitioner; Visit Provider Anesthesiology
DX: M48.02 Spinal stenosis, cervical region (principal); M48.062 Spinal stenosis, lumbar region with neurogenic claudication
CPT/HCPCS: G0463

== ENCOUNTER 2025-01-21 09:37 | Outpatient (RCR) | payer OTHER, SELFPAY ==
--- OUTSIDE RECORDS SUMMARY | 2024-09-04 11:15 | XMS_ITS ---
Author Organization [facility] in [place] Address [address] [place] [address] Care Team Providers Care Lunchroom Worker Name Role Phone None, Unknown or Primary Care Provider Unavailab Mathew Lee Unavailable [phone] Allergies Allergen (clinical drug ingredient) Drug/Non Drug [...] Problem Status W/U Status Risk Notes Problem [id number] Primary osteoarthrit is, left ankle and foot (M19.072) Active confirmed Vital Signs Heart Rate 84 /min 09/04/2024 Respiratory Rate 16 /min 09/04/2024 Oximetry 98 % 09/04/2024 Encounters Encounter Location Date Provider Diagnosis [facility] [place] (PODIATRY) [address] [place] [address] [place] [address] 09/04/2024 Mathew Hoff Pain due to internal [...] * Talia RUTHERFORDDOB:[birth year] (54 yo F)Acc No.[id number]:09/04/2024 Follow Up Patient: Talia FREED Provider: Miguel Hoff DPM, MS :1970 A ge:54 Y S ex:Female Date:09/04/2024 Address:[address] [place], [id number] Pcp:Unknown or None Check In:03:07 PM ESTCheck [...] M usculoskeletal: Bone/Joint Symptoms d enies. C skilled nursing Pain d enies.?Leg cramps d enies. N [...] 09/04/2024 Generated for Taina marina/Nhi/Josiasitting on: 0 02/09/2025 07:44 AM EDT History and Physical Notes * [...]
--- OUTSIDE RECORDS SUMMARY | 2024-09-04 11:53 | XMS_ITS ---
Author Organization [facility] in [place] Address [address] [place] [address] Care Team Providers Care Lpn Rn Name Role Phone None, Unknown or Primary Care Provider Unavailab Mathew Lee [phone] REASON FOR VISIT meds Medications Medication SIG (Take, Route, Fr equency, Duration) Notes Start Date End Date Status Meloxicam 15 MG 1 tablet Orally Once a day for 30 days 09/04/2024 Active Encounters Encounter Location Date Provider Diagnosis [facility] (PODIATRY) [address] [place] [address] [place] [address] 09/04/2024 Mathew Hoff Plan Of Treatment Medication Medication Name Sig Start Date Stop Date Notes Meloxicam 15 MG 1 tablet Orally Once a day for 30 days 06/2025 Progress Notes * Talia MERCADODOB:[birth year] (54 yo F)Acc No.[id number]:09/04/2024 Patient: Talia FREED :1970 A ge:54 Y S ex:Female Address:[address] [place] [address], [address] * Refills Start Meloxicam Tablet, 15 MG, Orally, 30, 1 tablet, Once a day, 30 days, Refills=3 * true * Date: Generated for Lbi ng/Fadoloresg/eTransmitting on: 0 02/09/2025 07:45 AM EDT
--- OUTSIDE RECORDS SUMMARY | 2024-09-18 11:30 | XMS_ITS ---
Author Organization The [facility] in [place] Address [address] [place] [address] Care Team Providers Care Preschool Assistant Director Name Role Phone None, Unknown or Primary Care Provider Unavailab Mathew Lee Unavailable [phone] Allergies Allergen (clinical drug ingredient) Drug/Non Drug [...] Encounters Encounter Location Date Provider Diagnosis The [facility] [place] (PODIATRY) [address] [place] [address] [place] [address] 09/18/2024 Mathew Hoff Pseudarthrosis after fusion or [...] Juan J RUTHERFORD:[birth year] (54 yo F)Acc No.[id number]:09/18/2024 Follow Up Patient: Lian FREEDyl Provider: Miguel Hoff DPM, MS :1970 A ge:54 Y S ex:Female Date:09/18/2024 Address:[address] [place], [id number] Pcp:Unknown or None Check In:03:18 PM ESTCheck [...] M usculoskeletal: Bone/Joint Symptoms d enies. C [facility] Pain d enies.?Leg cramps d enies. N [...] 09/18/2024 Generated for Taina marina/Nhi/Josiasitting on: 0 02/09/2025 [...]
[2025-01-29 13:41] VITALS: BP 109/54; PULSE 79; TEMP 36.6; O2SAT 93
[2025-01-29] MEDS: IRON DEXTRAN COMPLEX 100 MG/2 ML VIAL 25 MG IV (13:56)
[2025-01-29] MEDS: IRON DEXTRAN COMPLEX 975 MG in 0.9 % SODIUM CHLORIDE 250 ML 269.5 MG IV (14:59)
--- NOTE | 2025-01-29 15:39 | PC.NURSE ---
1510 tolerataing iron infusion without any s/s of reaction.
[2025-01-29 15:41] VITALS: BP 93/88; PULSE 81; TEMP 36.6; O2SAT 92
--- NOTE | 2025-01-29 15:42 | PC.NURSE ---
tolerating infusion without any s/s of reaction lungs clear, denies itching, wheezing or shortness of breath
--- OUTSIDE RECORDS SUMMARY | 2025-02-06 14:15 | XMS_ITS | Encounter Summary ---
Author Organization [employer] s tem Address [id number] [address] [place] [address] Care Team Providers Care Tube Tester Name Role Phone No Pcp, No Pcp Primary Care Provider Unavailabl e Reason for Referral * Consultation (Routine) - Authorized Specialty Diagnoses / Procedures Referred By Contact Referred To Contact Urogynecology / Gynecology Diagnoses Cystocele with second degree uterine prolapse History of reconstructive repair of rectocele Urge urinary incontinence Leslye Muniz DO [address] [place] [address] Phone: tel:[phone] fax:[phone] Tania Asif MD [address], [address] [address] Phone: tel:[phone] fax:[phone] Referral ID Status Reason Start Date Expiration Date Visits Requested Visits Authorized [id number] Authorized Specialty Services Required 02/06/2025 02/06/2026 1 1 Reason for Visit * Reason Comments New Patient New Patient presents for evaluation of a possible rectocele. Encounter Details Date Type Department Care Team (Latest Contact Info) Description 02/06/2025 2:15 PM EDT Office Visit [facility]Gynecolo [facility] [address] [place] [address] Leslye Muniz DO [address] [place] [address] Cystocele with second degree uterine prolapse (Primary [...] Care Everywhere. * Pelvic floor muscle exercises (Wolof) documented in this encounter Progress Notes * [...] [facility] - [facility] [address] [place] [address] Tania Asif MD [address] [place] [address] Scheduled Referrals Name Type Priority Associated Diagnoses Orde r Schedule [facility] - Urogynecology - [place], [place] Outpatient Referral Routine Cystocele with second [...] vaginitis documented in this encounter Care Teams Tube Tester Relationship Specialty Start Date End Date No Pcp, [place] [address] PCP - General Family Medicine 11/21/18 documented as of this encounter
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
--- OUTSIDE RECORDS SUMMARY | 2025-02-09 07:44 | XMS_ITS | Clinical Summary ---
Author Organization [employer] Address [facility] [address] [place] [address] Care Team Providers Care Alley Tender Name Role Phone No Pcp, No Pcp Primary Care Provider Unavailabl e Allergies Active Allergy Reactions Criticality Noted Date Comments Penicillins Hives 02/08/2023 Medications sod sulf-pot chloride-mag sulf 1.479-0.188- 0.225 gram tablet See instructional sheet given by office. Patient was given a [employer] voucher to use, this is not to be ran through patients insurance. 24 tablet 02/14/20 23 Active Additional Information Patient not taking.Reported on 02/06/2025 meloxicam (MOBIC) 15 mg tablet Take 1 tablet (15 mg total) by mouth daily as needed for pain. 10/03/19 25 Active albuterol (PROVENTIL HFA;VENTOLIN HFA) 90 mcg/actuation inhaler Inhale 2 puffs every 6 (six) hours as needed. 02/07/20 25 025 Active cyclobenzaprine (FLEXERIL) 10 mg tablet Take 1 tablet (10 mg total) by mouth 3 (three) times a day as needed. 01/21/20 25 Active DULoxetine (CYMBALTA) 30 mg capsule Take 1 capsule (30 mg total) by mouth in the morning. 11/20/19 25 025 Active DULoxetine (CYMBALTA) 60 mg capsule Take 1 capsule (60 mg total) by mouth in the morning. 11/20/19 25 025 Active fexofenadine (HUNG) 180 mg tablet Take 1 tablet (180 mg total) by mouth in the morning. 10/03/19 25 Active fluticasone propionate (FLONASE) 50 mcg/actuation nasal spray Administer 2 sprays into each nostril in the morning. 11/19/19 Active gabapentin (NEURONTIN) 300 mg capsule Take 1 capsule (300 mg total) by mouth 3 (three) times a day. 11/19/19 Active lansoprazole (PREVACID) 30 mg capsule Take 1 capsule (30 mg total) by mouth every morning before breakfast. Active tolterodine LA (DETROL LA) 4 mg 24 hr capsule Take 1 capsule (4 mg total) by mouth in the morning. 12/22/19 Active zolpidem (AMBIEN) 10 mg tablet Take 1 tablet (10 mg total) by mouth daily as needed. 11/19/19 Active estradioL (ESTRACE) 0.01 % (0.1 mg/gram) vaginal creamIndications:C ystocele with second degree uterine prolapse,History of reconstructive repair of rectocele,Urge urinary incontinence Apply pea sized amount ( 1.5 g) to vaginal introitus nightly for 4 weeks then 1-2 times per week thereafte 42.5 g 2 02/07/20 Active Active Problems No known active problems Encounters Date Type Department Care Team Description 02/06/2025 2:15 PM EDT Office Visit [facility] [address] [place] [address] Leslye Muniz, Cystocele with second degree uterine prolapse (Primary Dx); History of reconstructive repair of rectocele; Urge urinary incontinence; Incomplete emptying of bladder; Atrophic vaginitis from Last 3 Months Family History Medical History Relation Name Comments Diabetes Father Heart attack Father Stroke Father Breast cancer Maternal Aunt Breast cancer Maternal Grandmother Diabetes Mother Colon cancer Neg Hx Ovarian cancer Neg Hx Uterine cancer Neg Hx Relation Name Status Comments Father Maternal Aunt Alive Maternal Grandfather Maternal Grandmother Mother Paternal Grandfather Paternal Grandmother Social History Tobacco Use Types Packs/Day Years [...] Mass Index 28.51 02/06/2025 2:23 PM EDT Plan of Treatment Upcoming Encounters Date Type Department Care Team (Late st Contact Info) Description 04/02/2025 3:00 PM EDT Office Visit [facility] Pel[facility] - Urogyn [address] [place] [address] Tania Asif MD [address] [facility] [address] [place] [address] Health Maintenance Due Date Last Done Comments Tobacco Counseling 1971 Depression Screening 1983 Adult BMI Follow Up Plan 1989 DTaP,Tdap and Td Vaccines (1 - Tdap) 1990 Pap Smear 1992 Zoster (Shingles) Vaccine (1 of 2) 2021 Influenza Vaccine 03/24/2025 Adult BMI Screening 02/06/2026 02/06/2025 Tobacco Screening 02/06/2026 02/06/2025 Medical Devices Not on file Insurance [employer] Care Teams Alley Tender Relationship Specialty Start Date End Date No Pcp, No Pcp SEGUN Stephen [address] PCP - General Family Medicine 11/21/18
--- OUTSIDE RECORDS SUMMARY | 2025-02-09 07:44 | XMS_ITS | Patient Health Record ---
Author Organization [facility] [place] Address [address] [place] [address] Care Team Providers Care Robotics Testing Technician Name Role Phone None, Unknown or Primary Care Provider Unavailab Tawana [facility] [phone] Allergies Allergen (clinical drug ingredient) Drug/Non Drug Allergy documented on EMR Reaction Allergy Type Onset Date Status Penicillin rash Drug Allergy Active Results Component Value Reference Range Notes CT FOOT LT WO CON (Not yet r eviewed by provider) Interpretation: Performing Lab: Notes/Report: Source Facility: [place] [address] CT Scan Report Signed Patient: TALIA RUTHERFORD MR#: [id number] : 1970 Acct:[id number] Age/Sex: 54 / F ADM Date: 09/09/24 Loc: CT Attending Dr: Tawana Hoff D.P.M. Ordering Physician: Tawana Hoff D.P.M. Date of Service: 09/09/24 Procedure(s): CT foot LT wo con Accession Number(s): [id number] cc: ANGEL LUIS LAMAR [place] [address] Patient Name: TALIA RUTHERFORD MRN: [id number] date: 1970 Sex: F Assigned Patient Location: CT Current Patient Location: CT Accession/Order Number: [id number] Exam Date: 09/09/2024 15:56 Report Date: 09/09/2024 [...] M.D. Signed By: 09/09/241741 DD/ 38 TD/TT: Retail Office Associate: [place] [address] CT Scan Report Signed Patient: MARTY RUTHERFORD MR#: [id number] : 1970 Acct:[id number] Age/Sex: 54 / F ADM Date: 09/09/24 Loc: CT Attending Dr: Tawana Hoff D.P.M. Ordering Physician: Tawana Hoff D.P.M. Date of Service: 09/09/24 Procedure(s): CT foot LT wo con Accession Number(s): [id number] cc: ANGEL LUIS LAMAR [place] [id number] Patient Name: TALIA RUTHERFORD MRN: [id number] date: 1970 Sex: F Assigned Patient Location: CT Current Patient Location: CT Accession/Order [facility] er: [id number] Exam Date: 09/09/2024 15:56 Report Date: 09/09/2024 [...] M.D. Signed By: 09/09/241741 DD/ 38 TD/TT: Retail Office Associate: XR foot LT min 3V (Not yet r eviewed by provider) Interpretation: Performing Lab: Notes/Report: Source Facility: [place] [address] XRay Report Signed Patient: TALIA RUTHERFORD MR#: [id number] : 1970 Acct:[id number] Age/Sex: 54 / F ADM Date: 09/04/24 Loc: EC Attending Dr: Tawana Hoff D.P.M. Ordering Physician: Tawana Hoff D.P.M. Date of Service: 09/04/24 Procedure(s): XR foot LT min 3V Accession Number(s): [id number] cc: NASH LAMAR Peter D.P.M. The [place] [address] Patient Name: TALIA RUTHERFORD MRN: [id number] date: 1970 Sex: F Assigned Patient Location: Current Patient Location: Accession/Order Number: [id number] Exam Date: 09/04/2024 15:53 Report Date: 09/05/2024 [...] Signed By: 09/05/24 1019 DD/ 1016 TD/TT: Retail Office Associate: [place] [address] XRay Report Signed Patient: MARTY RUTHERFORD MR#: [id number] : 1970 Acct:[id number] Age/Sex: 54 / F ADM Date: 09/04/24 Loc: EC Attending Dr: Tawana Hoff D.P.M. Ordering Physician: Tawana Hoff D.P.M. Date of Service: 09/04/24 Procedure(s): XR foot LT min 3V Accession Number(s): [id number] cc: PAUL LAMAR; Tawana Hoff D.P.M. The [place] [id number] Patient Name: TALIA RUTHERFORD MRN: [id number] date: 1970 Sex: F Assigned Patient Location: Current Patient Location: Accession/Order Numb er: [id number] Exam Date: 09/04/2024 15:53 Report Date: 09/05/2024 10:16 At the request of: TAWANA HOFF Procedure: XR foot LT min 3V PROCEDURE: XR foot LT min 3V HISTORY: LEFT FOOT PAIN COMPARISON: XR foot left 05/31/2022 . FINDINGS: BONES:Prior machine tool mechanic al fusion of the second third tarsal-metatarsal [...] plantar spur; unchanged. Electronically authe nticated by: ELLIOT ALSTON Date: 09/05/2024 10:16 Dictated By: Elliot Alston M.D. Signed By: 09/05/24 1019 DD/ 1016 TD/TT: Retail Office Associate: Reason For Referral No Information Medications Medication [...] Problem Status W/U Status Risk Notes Problem [id number] Primary osteoarthritis , left ankle and foot (M19.072) Active confirmed Problem Gastroesophageal reflux disease (423901770) GERD (gastroesophag eal reflux disease) (K21.9) Active confirmed Problem Pain in left foot (367612173647055) Left foot pain (M79.672) Active confirmed Problem Anxiety depression (137553987) Anxiety with depression (F41.8) Active confirmed Vital Signs Heart Rate 85 /min 09/18/2024 Respiratory Rate 16 /min 09/18/2024 Oximetry 97 % 09/18/2024 Encounters Encounter Location Date Provider Diagnosis [facility] [address] [place] [address] [place] [address] 09/04/2024 Tawana Hoff Pain due to internal orthopedic prosthetic devices, implants and grafts, initial encounter T84.84XA ; Primary osteoarthritis, left ankle and foot M19.072 and Left foot pain M79.672 [facility] [address] [place] [address] [place] [address] 09/18/2024 Tawana Hoff 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.0 ; Primary osteoarthritis, left ankle and foot M19.072 and Pain due to internal orthopedic prosthetic devices, implants and grafts, initial encounter T84.84XA [facility] [address] [place] [address] [place] [address] 09/04/2024 Tawana Hoff Assessments Encounter Date Diagnosis [...] Start Date Coverage End Date [employer] [facility] [address] [place] [address] [id number] Talia Rutherford Self - patient is the insured Medical (General) History Medical History History ICD Code GERD (gastroesophageal reflux disease) K 21.9 Anxiety F41.9 Arthritis M19.90 Nicotine dependence F17.200 Bipolar depression F31.9 Overactive bladder N32.81 Peripheral arterial disease I73.9 Surgical History Surgery Date(Month/Year) posterior colporrhaphy repair, enterocel e repair 02/15/2021 gastric bypass 08/2019 tubal ligation cholecystectomy
--- OUTSIDE RECORDS SUMMARY | 2025-02-09 07:44 | XMS_ITS | Encounter Summary ---
Author Organization [employer] Address [facility] [id number] [address] [place] [address] Care Team Providers Care Generator Switchboard Operator Name Role Phone No Pcp, No Pcp Primary Care Provider Unavailpedro e Encounter Details Date Type Department Care Team (Late st Contact Info) Description 02/13/2023 Telephone [facility] General Surgery [address] [place] [address] Segun Keene DO [address] [place] [address] Social History Tobacco Use Types [...] office visit;just set up for colonsocopy at [facility] for anemis. I don't need to see he agian. Saw her today!!! * Telephone Encounter - Alberta Millan - 02/13/2023 11:36 AM EDT Talia called the office to try to reschedule her appointment, I informed her that Dr. Jassi fraga her set up for a colonoscopy at [facility]. Told Talia that our surgery schedulerwill call her back to schedule that with her. * Telephone Encounter - SUGEY Loyd - 02/13/2023 11:36 AM EDT I called Talia and scheduled colonoscopy at [facility] for 03/08/23. The patient is coming in tomorrow 02/14/23 to sign papers and go over bowel prep. I will send Dr. Keene a message to put in orders for this procedure and email everything over to Anh at the [facility]. documented in this encounter Plan of Treatment Upcoming Encounters Date Type Department Care Team (Late st Contact Info) Description 04/02/2025 3:00 PM EDT Office Visit [facility] Pel[facility] - Urogyn [address] [facility] [address] [address] [place] [address] Tania Asif MD [address] [place] [address] documented as of this encounter Visit Diagnoses Not on filedocumented in this encounter Care Teams Generator Switchboard Operator Relationship Specialty Start Date End Date No Pcp, [place] [address] PCP - General Family Medicine 11/21/18 documented as of this encounter
--- OUTSIDE RECORDS SUMMARY | 2025-02-09 07:45 | XMS_ITS | Clinical Summary ---
Author Organization [facility] Address [address] [place] [address] Care Team Providers Care Home Attendant Name Role Phone Shaikh NITHIN Main Primary Care Provider [phone] Allergies Active Allergy Reactions Criticality Noted Date [...] complete this topic Insurance [employer] Care Teams Home Attendant Relationship Specialty Start Date End Date Shaikh Main MD PCP - General Family Medicine 04/07/23
== END 2025-02-20 12:00 | disposition home or self-care (01) ==
LOC: INF 09:37
PROVIDERS: PCP Nurse Practitioner; Visit Provider Nurse Practitioner
DX: D50.9 Iron deficiency anemia, unspecified (principal)
CPT/HCPCS: 96365; 96376; J1750

== ENCOUNTER 2025-01-30 10:33 | Outpatient (OUT) | payer OTHER, SELFPAY | END 2025-01-30 10:34 | disposition home or self-care (01) | LOC: WC 10:35 | PROVIDERS: PCP Nurse Practitioner; Visit Provider Physician Assistant | DX: L97.522 Non-pressure chronic ulcer of other part of left foot with fat layer exposed (principal) | CPT/HCPCS: G0463 ==

== ENCOUNTER 2025-02-04 14:48 | Outpatient (OUT) | payer OTHER, SELFPAY ==
--- OUTSIDE RECORDS SUMMARY | 2019-11-19 07:15 | XMS_ITS | Continuity of Care Document ---
Author Organization [facility] Address [address] [facility] [place] [address] Phone Care Team Providers Care Filter Changer Name Role Phone Bernardo WELLER, Mathew Early Unavailable Procedures Procedure Date POSTOP FOLLOW-UP VISIT POSTOP FOLLOW-UP VISIT Gastric Bypass LAP GASTRIC BYPASS/YOUSUF-EN-Y OFFICE/OUTPATIENT VISIT, EST OFFICE/OUTPATIENT VISIT, NEW Advance Directives Directive Yes / No Effective Date File Name No Information Encounters Encounter Description Practice Location Reason(s) For Visit Diagnoses Date Provider Providers Copied on Encounter [facility] [employer] [facility], [address] [place] [address], [id number], tel:[phone] [facility] No Information Bernardo Carmona. [address], [id number], [place]. tel:[phone] Referring Provider: Mathew Boudreaux, [address], [address]. tel:[phone] [facility], [address] [place] [address], [id number], tel:[phone] [facility] No Information Laci Londono. [address] [facility] [address], [place], [id number], [place]. tel:[phone] Referring Provider: Spring Aguero, [address] [facility] [address], [place], [address]. tel:[phone] [facility], [address] [place] [address] [address], [place], [place], [id number], [place] tel:[phone] [facility] IP No Information Laci Londono. [address], [place], [place], [id number], [place]. tel:[phone] Referring Provider: Spring Aguero, [address] [facility] [address], [place], [address]. tel:[phone] [facility], [address] [place] [address] [address], [place], [place], [id number], [place] tel:[phone] [facility] IP No Information Bernardo Carmona. [address] [facility] [address], [place], [place], [address], [place]. tel:[phone] Referring Provider: Mathew Boudreaux, [address] [facility] [address], [place], [address]. tel:[phone] OFFICE/OUTPATI ENT VISIT, [facility] [employer] [facility], [address] [facility] [address], [place], [place], [id number], [place] tel:[phone] [facility] No Information eBrnardo Carmona. [address] [facility] [address], [place], [place], [id number], [place]. tel:[phone] Referring Provider: Mathew Boudreaux, [address] [facility] [address], [place], [address]. tel:[phone] OFFICE/OUTPATI ENT VISIT, [facility] [employer] [facility], [address] [place] [address] [address], [place], [place], [id number], [place] tel:[phone] [facility] No Information Bernardo Carmona. [address] [facility] [address], [place], [place], [id number], [place]. tel:[phone] Referring Provider: Mathew Boudreaux, [address] [facility] [address], [place], [address]. tel:[phone] Family History Family Member Type Diagnosis Age At Onset No Information Payers Payer name Insurance type Covered constitution party ID Bijal elmore(anastasiia Ruiz [id number] Social History Type Description Quantity Date Captured [...]
--- OUTSIDE RECORDS SUMMARY | 2024-09-04 11:15 | XMS_ITS ---
Author Organization [facility] in [place] Address [address] [place] [address] Care Team Providers Care Lifter Name Role Phone None, Unknown or Primary Care Provider Unavailab Mathew Lee Unavailable [phone] Allergies Allergen (clinical drug ingredient) Drug/Non Drug [...] Problem Status W/U Status Risk Notes Problem [id number] Primary osteoarthrit is, left ankle and foot (M19.072) Active confirmed Vital Signs Heart Rate 84 /min 09/04/2024 Respiratory Rate 16 /min 09/04/2024 Oximetry 98 % 09/04/2024 Encounters Encounter Location Date Provider Diagnosis [facility] [place] (PODIATRY) [address] [place] [address] [place] [address] 09/04/2024 Mathew Hoff Pain due to internal [...] * Talia RUTHERFORDDOB:[birth year] (54 yo F)Acc No.[id number]:09/04/2024 Follow Up Patient: Talia FREED Provider: Miguel Hoff DPM, MS :1970 A ge:54 Y S ex:Female Date:09/04/2024 Address:[address] [place], [id number] Pcp:Unknown or None Check In:03:07 PM ESTCheck [...] M usculoskeletal: Bone/Joint Symptoms d enies. C senior living Pain d enies.?Leg cramps d enies. N [...] 09/04/2024 Generated for Taina marina/Nhi/Josiasitting on: 0 02/04/2025 02:51 PM EDT History and Physical Notes * [...]
--- OUTSIDE RECORDS SUMMARY | 2025-01-22 09:00 | XMS_ITS | Encounter Summary ---
Author Organization [facility] Address [address] [place] [address] Care Team Providers Care Jaw Skinner Name Role Phone Molina De Anda MD Primary Care Provider [phone] Valerie Groves PROPULSION ENGINEER Unavailable [phone] Eunice Stokes PMHNP-BC Unavailable + [phone] Reason for Visit * Reason Comments Psychiatric Evaluation * Behavioral Health - Outpatient (Stat) - Closed Specialty Diagnoses / Procedures Referred By Carlos white Referred To Contact Behavioral Health Diagnoses Bipolar disorder with severe depression (HCC) Procedures [place] OFFICE/OUTPATIENT NEW HIGH MDM 60 MINUTES Pascale Arana NP [address] [place] [address] Phone: tel: fax: Eunice Stokes PMHNP-BC [address] [facility] [address] [place] [address] Phone: tel: fax: Referral ID Status Reason Start Date Expiration Date V isits Requested Visits Authorized [id number] Closed Specialty Services Required 01/06/2025 07/05/2025 1 1 Encounter Details Date Type Department Care Team (Late st Contact Info) Description 01/22/2025 9:00 AM EDT Office Visit [facility] [address] [facility] [address] [place] [address] Eunice Stokes PMHNP-BC [address] [facility] [address] [place] [address] JESSIKA (generalized anxiety disorder) ; Severe episode of recurrent major depressive disorder, without psychotic features (HCC); PTSD (post-traumatic stress disorder) ; Insomnia, unspecified type; Sleep apnea, unspecified type; Encounter for drug screening; Bipolar disorder with severe depression (HCC) Social History Tobacco Use Types Packs/Day Years Used Date Smoking Tobacco: Every Day Cigarettes 1 39.5 Started: 1984 Passive Smoke Exposure: Past Smokeless Tobacco: Never Tobacco Cessation:Ready to Q uit: Not Asked; Counseling Given: Not Answered Comments:Thinking about quitting Alcohol Use Standard Drinks/Week Comments Not Currently 0 (1 standard drink = 0.6 oz [...] often do you attend chur ch or sikhism services? Never 08/07/2023 Do you belong to [...] Answer Date Recorded Patient Health Questionnaire-2 Score 5 01/22/2025 [facility] [...] Sign Reading Time Taken Comments Blood Pressure 112/68 01/22/2025 9:04 AM EDT Pulse 78 01/22/2025 9:04 AM EDT Temperature - - Respiratory Rate - - Oxygen Saturation - - Inhaled Oxygen Concentration - - Weight 80.7 kg (178 lb) 01/22/2025 9:04 AM EDT Height - - Body Mass Index 29.62 10/02/2024 4:51 PM EDT documented in this encounter Functional Status * Over the past 2 weeks, how often have you been bothered by any of the following problems? Question Answer Date of Assessment Author Patient Health Questionnaire-2 Score 5 01/22/2025 9:29 AM EDT Francisca Stokes PMHNP-TWIN * If you checked off any problems on this questionnaire so far, Question Answer Date of Assessment Author How difficult have these problems made it for you to do your work, take care of things at home, or get along with other people? Extremely difficult 01/22/2025 9:29 AM EDT Eunice Stokes PMHNP-BC * Over the last 2 weeks, how often have you been bothered by any of the following problems? Question Answer Date of Assessment Author Feeling nervous, anxious, or on edge 2 01/22/2025 9:30 AM Eunice Norris PMHNPLEXUS Not being able to stop or control worrying 3 01/22/2025 9:30 AM ANNETTET Eunice Stokes PMHNPLEXUS Worrying too much about different things 3 01/22/2025 9:30 AM Eunice Norris PMHNP-BC Trouble relaxing 3 01/22/2025 9:30 AM EDT Eunice Truong PMHNP-BC Being so restless that it is hard to sit still 2 01/22/2025 9:30 AM Eunice Norris PMHNPLEXUS Becoming easily annoyed or irritable 3 01/22/2025 9:30 AM Eunice Norris PMHNP-TWIN Feeling afraid as if something awful might happen 2 01/22/2025 9:30 AM Eunice Norris PMHNP-TWIN JESSIKA-7 Total Score 18 01/22/2025 9:30 AM Eunice Norris PMHNP-TWIN * Over the past 2 weeks, how often have you been bothered by any of the following problems? Question Answer Date of Assessment Author Little interest or pleasure in doing things More than half the days 01/22/2025 9:29 AM Eunice Norris PMHNPLEXUS Feeling down, depressed, or hopeless Nearly every day 01/22/2025 9:29 AM Eunice Norris PMHNP-TWIN Trouble falling or staying asleep, or sleeping too much Nearly every day 01/22/2025 9:29 AM Eunice Norris PMHNPLEXUS Feeling tired or having little energy Nearly every day 01/22/2025 9:29 AM Eunice Norris PMHNP-TWIN Poor appetite or overeating Not at all 01/22/2025 9:29 AM Eunice Norris PMHNP-TWIN Feeling bad about yourself - or that you are a failure or have let yourself or your family down Nearly every day 01/22/2025 9:29 AM Eunice Norris PMHNPLEXUS Trouble concentrating on things, such as reading the newspaper or watching television Nearly every day 01/22/2025 9:29 AM Eunice Norris PMHNPLEXUS Moving or speaking so slowly that other people could have noticed? Or the opposite - being so fidgety or restless that you have been moving around a lot more than usual. Nearly every day 01/22/2025 9:29 AM Eunice Norris PMHNP-TWIN Thoughts that you would be better off or hurting yourself in some way Several days 01/22/2025 9:29 AM Liz Norris PMHNP-TWIN Patient Health Questionnaire-9 Score 21 01/22/2025 9:29 AM EDT Francisca Stokes teresa, PMHNP-BC documented as of this encounter Progress Notes * Eunice Stokes PMHNP-BC - 01/22/2025 9:00 AM EDT Images from the original note were not included. HPI: Talia Mercado is a 54 y.o. female who was referred by PCP for bipolar disorder and depression. She states she had a nervous breakdown on January 02 due to personal stressors. She states she said some things to her sister because of this and hasn't talked to her since. She states she has had a lot of traumatic experience in her life. She states she has had her grandson in her custody since he was 3 years old. She states that her son was young when she had him and didn't know how to care for his child. She states that they eventually went to court when her grandson was 9 years old and got guardianship of him. She states that she hasn't talked to her son since this happened, and she also lost connection with one of her daughter's during the process. She states she has a lot of stress at home because she does everything in the home in regards to cleaning, cooking, and taking care of her . She also found out some things about her father 1-2 years ago that upset her, including himtouching her other siblings and him having another family in [place]. She describes her mood as sad, anxious, and having racing thoughts about her past experiences. She reports a lot of irritability that has been going on for 4-5 months. She states that she has had trouble sleeping for many years. She has been on Ambien since 2022. She states without it, she won't sleep at all. She states she takes it every night to help her get 3-6 hours of sleep. She states if Icould just shut my brain off then she would sleep well. She reports getting diagnosed with mild case of sleep apnea several years ago. She states she tried a CPAP machine but refuses to use it because she couldn't stand it. She states her goals are to improve her mood and attitude. She states she does not want to be bitter anymore. Medical History: GERD, Fibromyalgia, Iron deficiency anemia, B12 deficiency, gastric bypass (2019),Sleep apnea (states she has mild case and tried CPAP but didn't like it so she refuses to use it) Past Psychiatric History: Previous diagnoses: Depression, Anxiety Previous medication trials: Celexa - recently stopped by PCP because she was also taking Duloxetine Sertraline - ineffective after being on it for a while Wellbutrin - was on this for smoking cessation Lunesta - did not work Abilify - doesn't recall how this made her feel Current medications: Duloxetine 90 mg (60 mg in the morning and 30 mg at night) Lamictal 50 mg - recently added by PCP on 01/06/25. Has been on 50 mg for 2 days and has not felt any improvement or negative side effects from this. Ambien 10 mg Previous psychiatric treatment: Denies ever seeing psychiatric provider for medication. Denies any counseling treatment in the past. Previous psychiatric hospitalizations: Denies Previous suicide attempts or self harm: Denies History of violence: Denies History of trauma: Sister disappeared when she was 6 years old. Legal history: Denies Family psychiatric history includes: See chart Substance Abuse History: Patient denies any history of substance use disorder or previous treatmentfor such history. Recreational drugs: Hits marijuana every once and a while but doesn't like how it makes her feel. She states she only uses this for severe pain secondary to her fibromyalgia. Use of alcohol: Denies Use of caffeine: 3-4 cups of coffee a day Tobacco or vaping use: Smokes 1 pack per day Social History: Relationship/marital status: to since 2010. Reports she was previously two other times. Children: 4 children Living situation: Lives with . She has guardianship over grandson (11) who also lives there. 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 Has been with [employer] for 15 years. She states sheis currently on medical leave. PSYCHIATRIC REVIEW OF SYSTEMS: Depression: Patient DOES ENDORSE episodes of mood fluctuations lasting 2 weeks or more including sadness, anhedonia, low self-esteem, crying spells, problems with sleep, problems with appetite, psychomotor agitation / retardation, poor concentration, fatigue, feelings of worthlessness and hopelessness, decreased sex drive. Patient states they have had passive suicidal ideation; denies previous suicide attempts or self harm. Patient states they have a good support system in place. PHQ-9 score of21. Marina/Hypomania: Patient DENIES. Anxiety: Patient DOES ENDORSE having excessive worry, restlessness, being on edge, poor concentration, irritability, mind going blank, muscle tension, sleep disturbance. Symptoms have been going on for over 6 months. JESSIKA-7 score of 18. Panic attacks: Patient DENIES. Social anxiety: Patient DENIES. PTSD: Patient DOES ENDORSE a history of trauma or traumatic stress. Patient also admits to experiencing hypervigilance, feeling hyper-alert, increased startle response, intrusive thoughts, nightmares, flashbacks, avoidance and agoraphobia. OCD: Patient DENIES. Psychosis: Patient DENIES having delusions, visual hallucinations, auditory hallucinations, thoughtinsertion, paranoia, thought broadcasting. ADHD: Patient DENIES. Eating Disorder: Patient DENIES. SUBJECTIVE: PAST MEDICAL HISTORY: Past Medical History: Diagnosis Date Abnormal foot pulse Adjustment disorder Allergic Anxiety and depression Bipolar depression (HCC) Chronic pain disorder Depression Equinus contracture of left ankle Fibromyalgia GERD (gastroesophageal reflux disease) Headache History of reconstructive repair of rectocele Insomnia Iron (Fe) deficiency anemia Left foot pain Memory loss Numbness of tongue Onychocryptosis Onychomycosis Overactive bladder Panic attack Peripheral arterial disease Primary osteoarthritis, left ankle and foot Seasonal allergies Sinusitis Sleep difficulties Surgical wound dehiscence Tobacco use disorder Uterovaginal prolapse Varicella Patient denies any history of heart problems, head trauma, seizures, stroke/TIA, infectious disorders (e.g., meningitis), lung disorders, tics/tourette???s, eating disorders. MEDICATIONS: Current Outpatient Medications Medication Instructions albuterol HFA 90 mcg/act inhaler 2 puffs, Inhalation, Every 6 hours PRN DULoxetine (CYMBALTA) 60 mg, Oral, [...] a day meloxicam (MOBIC) 15 mg, Daily PRN pantoprazole (PROTONIX) 40 mg, Oral, Daily, Do not crush, chew, or split. tolterodine LA (DETROL LA) 4 mg, Oral, Daily zolpidem (AMBIEN) 10 mg, Oral, Nightly PRN ALLERGIES: Allergies Allergen Reactions Penicillins Hives SURGICAL HISTORY: Past Surgical History: Procedure Laterality Date CHOLECYSTECTOMY COLPORRHAPHY ENTEROCELE REPAIR GASTRIC BYPASS OTHER SURGICAL HISTORY Back injections and nerve cauterization TUBAL LIGATION FAMILY HISTORY: Family History Problem Relation Name Age of Onset Diabetes Mother Marlyn Depression Mother Marlyn Diabetes Father Roberto Hypertension Father Roberto Heart disease Father Roberto Stroke Father Roberto Thyroid cancer Maternal Grandmother Breast cancer Maternal Grandmother Breast cancer Mother's Sister SOCIAL HISTORY: Social History Tobacco Use Smoking status: Every Day Current packs/day: 1.00 Average packs/day: 1 pack/day for 39.5 years (39.5 ttl pk-yrs) Types: Cigarettes Start date: 1985 Passive exposure: Past Smokeless tobacco: Never Tobacco comments: Thinking about quitting Vaping Use Vaping status: Never Used Substance Use Topics Alcohol use: Not Currently Comment: caffeine: 3-4 cups per day Drug use: Not Currently Patient Health Questionnaire-9 Score: 21 JESSIKA-7 Total Score: 18 Patient Care Team: Molina De Anda MD as PCP - General (Family Medicine) Valerie Groves NP as Nurse Practitioner (Family Medicine) SINDHU Marquez as Nurse Practitioner (Behavioral Health) MENTAL STATUS EXAM Appearance Appearance: Normal grooming and hygiene. Appears stated age. Dressed appropriately for weather., Tattoos Behavior Calm, cooperative, pleasant. Good posture. Psychomotor Activity Intact. No abnormal movements noted. Eye contact Good Speech Normal, clear, regular rate, rhythm and volume Affect Full range. Stable. Appropriate and congruent with mood. and Tearful Mood Anxious, Depressed, and Irritable Thought Process Organized, logical, and goal directed Thought Content: Denies suicidal and homicidal ideation. Perception: Denies auditory or visual hallucinations. No evidence of delusions. Denies derealization and depersonalization. Cognition Alert and attentive during visit Memory Immediate, recent and remote memory intact Insight Good. Acknowledges predominant symptoms of illness and need for treatment Judgement Good. Able to make reasonable life decisions. OBJECTIVE: Visit Vitals BP 112/68 (BP Location: Right arm, Patient Position: Sitting) Pulse 78 Wt 178 lb BMI 29.62 kg/m?? Smoking Status Every Day BSA 1.92 m?? Lab results: 01/14/25 - CBC (Hgb 11.8), B12, Iron, TIBC, Ferritin ASSESSMENT AND PLAN: Impression: Patient's symptoms consistent with MDD, JESSIKA, and PTSD. Today's assessment of symptoms and her mood disorder questionnaire are not consistent with bipolar disorder at this time. Will continue to monitor. Due to this finding, will titrate off Lamictal. We discussed options for treating her symptoms, which included SGA or Wellbutrin. She desires to try Vraylar at this time. [place] report checked on 01/21/25 shows she had Ambien filled on 01/17/25 through PCP. She has been on Ambien since 2022. Controlled substance agreement reviewed and signed today. UDS to be obtained before next visit. There is a possibility that this could be positive for THC asshe admits to use over the weekend due to her fibromyalgia pain. Patient made aware of my maternity leave this Fall, as well as coverage, plan for medication refills, and if any concerns arise. Assessment/Plan Diagnoses and all orders for this visit: JESSIKA (generalized anxiety disorder) - Ambulatory referral to Behavioral Health Severe episode of recurrent major depressive disorder, without psychotic features ([facility]) PTSD (post-traumatic stress disorder) Insomnia, unspecified type Sleep apnea, unspecified type Treatment Plan/Recommendations: - Continue Duloxetine for anxiety and depression. - Decrease Lamictal to 25 mg for 1 week, then stop medication due to indication of use. - Start Vraylar 1.5 mg daily for MDD. - Continue Ambien at night for insomnia. - UDS ordered today and patient aware to get this done before next visit. - Encouraged counseling for additional mental health support and treatment. Patient is agreeable tothis. - RTC in 4 weeks to re-evaluate symptoms. Discussed follow-up plan with patient, and encouraged patient to call office sooner if symptoms worsen or if any questions/concerns arise. Reviewed the risks, benefits, and potential side effects from the medications. The patient agrees the benefits outweigh the risks and agrees to treat their symptoms. Discussed treatment plan, the patient was allowed time to ask questions, and the patient agreed with the plan moving forward. Instructed patient to call office with any complications or potential side effects. Patient instructed to present to the local ER or call Suicide Hotline (754) for any psychosis, suicidal or homicidal ideation, or with any risk of harm to self or others. Patient was seen Face to Face, Total time spent with patient was 60 minutes, which includes reviewing chart documents, previous notes/records, counseling and discussion with patient and/or coordination of care as described above. documented in this encounter Miscellaneous Notes * Addendum Note - SINDHU Marquez - 01/22/2025 9:00 AM EDTAddended by: EUNICE STOKES on: 01/22/2025 10:29 AM Modules accepted: Orders documented in this encounter Plan of Treatment Upcoming Encounters Date Type Department Care Team (Late st Contact Info) Description 02/05/2025 3:20 PM EDT Office Visit [facility] [address] [place] [address] Pascale Arana NP [address] [place] [address] 02/24/2025 3:00 PM EDT Office Visit [facility] [address] [facility] [address] [place] [id number] Eunice Stokes PMHNP-BC [address] [facility] [address] [place] [phone] 03/06/2025 3:00 PM EDT Social Work [facility] [address] [facility] [address] [place] [address] Rohan Burns LPC Scheduled Orders Name Type Priority Associated Diagnoses Orde r Schedule DRUG TOX MONITORIGN 6 W/ CONF,URINE Lab Routine Encounter for drug screening Ordered: 01/22/2025 documented as of this encounter Goals Goal Patient Goal Type Associated Problems Recent Progress Patient-Stated? Author Help patient manage antidepressant medication Care Plan Patient on antidepressant monitoring plan No Shaikh Main MD documented as of this encounter Visit Diagnoses Diagnosis JESSIKA (generalized anxiety disorder) Generalized anxiety disorder Severe episode of recurrent major depressive disorder, without psychotic features (HCC) PTSD (post-traumatic stress disorder) Posttraumatic stress disorder Insomnia, unspecified type Sleep apnea, unspecified type Encounter for drug screening Bipolar disorder with severe depression (HCC) documented in this encounter Additional Health Concerns Active Problems Noted Date Diagnosed Date Patient on antidepressant monitoring plan 2023 Assessment Noted Time PHQ-9 Depression Total Score: 21 025 9:29 AM EDT documented as of this encounter Care Teams Jaw Skinner Relationship Specialty Start Date End Date Molina De Anda MD [address] [place] [address] PCP - General Family Medicine 02/21/24 Valerie Groves NP [address] [place] [address] Nurse Practitioner Family Medicine 02/21/24 [facility] [address] [address] [place] [address] Nurse Practitioner Behavioral Health 01/22/25 documented as of this encounter
--- OUTSIDE RECORDS SUMMARY | 2025-02-04 14:51 | XMS_ITS | Encounter Summary ---
Author Organization [employer] [facility] Address [id number] [address] [place] [address] Care Team Providers Care Nsh Teacher Name Role Phone No Pcp, No Pcp Primary Care Provider Unavailabl e Encounter Details Date Type Department Care Team (Late st Contact Info) Description 02/13/2023 Telephone [facility] General Surgery [address] [place] [phone] Segun Keene DO [address] [place] [address] Social History Tobacco Use Types [...] office visit;just set up for colonsocopy at [facility] for anemis. I don't need to see he agian. Saw her today!!! * Telephone Encounter - Alberta Millan - 02/13/2023 11:36 AM EDT Talia called the office to try to reschedule her appointment, I informed her that Dr. Jassi greerntderrick her set up for a colonoscopy at [facility]. Told Talia that our surgery schedulerwill call her back to schedule that with her. * Telephone Encounter - SUGEY Loyd - 02/13/2023 11:36 AM EDT I called Talia and scheduled colonoscopy at [facility] for 03/08/23. The patient is coming in tomorrow 02/14/23 to sign papers and go over bowel prep. I will send Dr. Keene a message to put in orders for this procedure and email everything over to Anh at the [facility]. documented in this encounter Plan of Treatment Upcoming Encounters Date Type Department Care Team (Late st Contact Info) Description 02/06/2025 2:15 PM EDT Office Visit [facility] Obstetrics/[facility]ne[facility] [address] [place] [address] Leslye Muniz, [address] [place], [place] [phone] documented as of this encounter Visit Diagnoses Not on filedocumented in this encounter Care Teams Nsh Teacher Relationship Specialty Start Date End Date No Pcp, [place] [address] PCP - General Family Medicine 11/21/18 documented as of this encounter
--- OUTSIDE RECORDS SUMMARY | 2025-02-04 14:51 | XMS_ITS | Encounter Summary ---
Author Organization [facility] Address [address] [place] [address] Care Team Providers Care Residential Door Installer Name Role Phone Shaikh NITHIN Main Primary Care Provider [phone] Shaikh NITHIN Main Primary Care Provider [phone] Molina De Anda MD Primary Care Provider [phone] Valerie Groves RADIO ELECTRONICS OFFICER Unavailable [phone] Karime Dias [facility] Unavailable [phone] Reason for Visit * Reason Comments Med Refill Encounter Details Date Type Department Care Team (Late st Contact Info) Description 10/16/2023 [facility] [address] [place] [address] Shaikh Main MD [address] [place] [phone] Psychophysiological insomnia Social History Tobacco Use Types [...] How often do you attend chur or adventist services? Never 08/07/2023 Do you belong to any clubs o r organizations such as gnosticism groups, unions, fraternal or athletic groups, or [...] Recorded Patient Health Questionnaire-2 Score 6 08/03/2023 [facility] - Occupational Stress [...] Visit [facility] [address] [place] [phone] Pascale Arana NP [address] [place] [address] 02/24/2025 3:00 PM EDT Office Visit [facility] [address] [place] [address] [place] [address] Karime Dias, [facility] [address] [place] [address] [place] [address] 03/06/2025 3:00 PM EDT Social Work [facility] [address] [place] [address] Rohan Burns LPC documented as of this encounter Goals Goal [...] documented as of this encounter Care Teams Residential Door Installer Relationship Specialty Start Date End Date Shaikh Main MD PCP - General Internal Medicine 04/20/23 01/07/24 Shaikh Main MD [address] [place] [address] PCP - General Internal Medicine 01/08/24 02/20/24 Molina De Anda MD [address] [place] [address] PCP - General Family Medicine 02/21/24 Valerie Groves NP [address] [place] [address] Nurse Practitioner Family Medicine 02/21/24 Karime Dias [facility] [address] [facility] [address] [place] [address] Nurse Practitioner Behavioral Health 01/22/25 documented as of this encounter
--- OUTSIDE RECORDS SUMMARY | 2025-02-04 14:51 | XMS_ITS | Clinical Summary ---
Author Organization [employer] Address [id number] [address] [place] [address] Care Team Providers Care Receiving Teller Name Role Phone No Pcp, No Pcp [...] Orientation Not on file Plan of Treatment Upcoming Encounters Date Type Department Care Team (Late st Contact Info) Description 02/06/2025 2:15 PM EDT [facility] [address] [place] [address] Leslye Muniz, [address] [place] [address] Health Maintenance Due Date Last Done Comments Depression Screening 1983 Tobacco Screening 1983 Adult BMI Screening 1989 DTaP,Tdap and Td Vaccines (1 - Tdap) 1990 Pap Smear 1992 Zoster (Shingles) Vaccine (1 of 2) 2021 Influenza Vaccine 03/24/2025 Medical Devices Not on file Insurance [employer] Care Teams Receiving Teller Relationship Specialty Start Date End Date No Pcp, [place] [address] PCP - General Family Medicine 11/21/18
--- OUTSIDE RECORDS SUMMARY | 2025-02-04 14:51 | XMS_ITS | Encounter Summary ---
Author Organization [facility] Address [address] [place] [address] Care Team Providers Care Gum Rolling Machine Tender Name Role Phone Molina De Anda MD Primary Care Provider [phone] Valerie Groves THERAPEUTIC RECREATION ASSISTANT Unavailable [phone] Karime Dias [facility]- Unavailable + [phone] Encounter Details Date Type Department Care Team (Late st Contact Info) Description 11/14/2024 Orders Only [facility] [address] [place] [address] Pascale Arana NP [address] [place] [address] UTI (urinary tract infection), uncomplicated (Primary Dx) [...] often do you attend chur ch or gnosticism services? Never 08/07/2023 Do you belong to [...] Recorded Patient Health Questionnaire-2 Score 0 04/10/2024 [facility] Occupat ional Health - Occupational [...] EDT Office Visit [facility] [address] [place] [address] Pascale Arana NP [address] [place] [address] 02/24/2025 3:00 PM EDT Office Visit [facility] [address] [place] [address] [place] [address] Karime Dias, PMHNP- [address] [place] [address] [place] [address] 03/06/2025 3:00 PM EDT Social Work [facility] 112 [facility] [address] [place] [address] Rohan Burns LPC Scheduled Orders Name Type [...] documented as of this encounter Care Teams Gum Rolling Machine Tender Relationship Specialty Start Date End Date Molina De Anda MD [address] [place] [address] PCP - General Family Medicine 02/21/24 Valerie Groves NP [address] [place] [address] Nurse Practitioner Family Medicine 02/21/24 [facility] 112 [facility] [address] [place] [address] Nurse Practitioner Behavioral Health 01/22/25 documented as of this encounter
--- OUTSIDE RECORDS SUMMARY | 2025-02-04 14:51 | XMS_ITS | Clinical Summary ---
Author Organization [facility] Address [address] [place] [address] Care Team Providers Care Housekeeping Worker Name Role Phone Shaikh NITHIN Main Primary Care Provider [phone] Allergies Active Allergy Reactions Criticality Noted Date [...] - 2023-2 5 season) 2024 Influenza Vaccine (#1) 2025 HIB Vaccines Aged Out No longer [...] complete this topic Insurance [employer]ET[employer] Care Teams Housekeeping Worker Relationship Specialty Start Date End Date Shaikh Main MD PCP - General Family Medicine 04/07/23
--- OUTSIDE RECORDS SUMMARY | 2025-02-04 14:51 | XMS_ITS | Encounter Summary ---
Author Organization [facility] Address [address] [place] [address] Care Team Providers Care Oncology Transplant Network Manager Name Role Phone Molina De Anda MD Primary Care Provider [phone] Valerie Groves JEWELRY POLISHER Unavailable [phone] Karime Dias HNP- Unavailable + [phone] Reason for Visit * Reason Onset Date Comments Med Refill 11/18/2024 Encounter Details Date Type Department Care Team (Late st Contact Info) Description 11/18/2024 Refill [facility] [address] [place] [address] Molina De Anda MD [address] [place] [address] Plantar fasciitis of right foot (Primary Dx) [...] How often do you attend chur or christian services? Never 08/07/2023 Do you belong to [...] Recorded Patient Health Questionnaire-2 Score 0 04/10/2024 [facility] Occupat ionpa Health - Occupational Stress Questionnaire Answer Date [...] place to sleep or slept in a longterm (including now)? No 08/07/2023 Comments Unknown Sex [...] Visit [facility] [address] [place] [address] Pascale Arana NP [address] [place] [address] 02/24/2025 3:00 PM EDT Office Visit [facility] [address] [facility] [address] [place] [address] Karime Dias PMHNP- [address] [facility] [address] [place] [address] 03/06/2025 3:00 PM EDT Social Work [facility] [address] [facility] [address] [place] [address] Rohan Burns LPC documented as of this [...] documented as of this encounter Care Teams Oncology Transplant Network Manager Relationship Specialty Start Date End Date Molina De Anda MD [address] [place] [address] PCP - General Family Medicine 02/21/24 Valerie Groves NP [address] [place] [address] Nurse Practitioner Family Medicine 02/21/24 [facility] [address] [facility] [address] [place] [address] Nurse Practitioner Behavioral Health 01/22/25 documented as of this encounter
--- OUTSIDE RECORDS SUMMARY | 2025-02-04 14:52 | XMS_ITS | Encounter Summary ---
Author Organization [facility] Address [address] [place] [address] Care Team Providers Care Associate Producer Name Role Phone Molina De Anda MD Primary Care Provider [phone] Valerie Groves SONAR WATCHSTANDER Unavailable [phone] [facility] + [phone] Encounter Details Date Type Department Care Team (Late st Contact Info) Description 11/18/2024 Orders Only [facility] [address] [place] [address] Pascale Arana NP [address] [place] [address] Social History Tobacco Use Types Packs/Day Years [...] How often do you attend chur or episcopalian services? Never 08/07/2023 Do you belong to any clubs o r organizations such as religion groups, unions, fraternal or athletic groups, or [...] Recorded Patient Health Questionnaire-2 Score 0 04/10/2024 [facility] of Occupat ional Health - [...] 02/05/2025 3:20 PM EDT Office Visit [facility] [address] [place] [address] Pascale Arana NP [address] [place] [address] 02/24/2025 3:00 PM EDT Office Visit [facility] [address] [facility] [address] [place] [address] Karime Dias HNP- [address] [facility] [address] [place] [address] 03/06/2025 3:00 PM EDT Social Work [facility] [address] [place] [address] [place] [address] Rohan Burns LPC documented as of this [...] (11/18/2024 2:41 PM EDT) us [facility] Arana SONAR WATCHSTANDER LAB CHG PERFORMABLES Final Resu lt documented in this encounter Visit Diagnoses Not on filedocumented in this encounter Additional Health Concerns Active Problems Noted Date Diagnosed Date Patient on antidepressant monitoring plan 2023 Assessment Noted Time PHQ-9 Depression Total Score: 23 024 4:27 PM EST documented as of this encounter Care Teams Associate Producer Relationship Specialty Start Date End Date Molina De Anda MD [address] [place] [address] PCP - General Family Medicine 02/21/24 Valerie Groves NP [address] [place] [address] Nurse Practitioner Family Medicine 02/21/24 [facility] [address] [facility] [address] [place] [address] Nurse Practitioner Behavioral Health 01/22/25 documented as of this encounter
--- OUTSIDE RECORDS SUMMARY | 2025-02-04 14:52 | XMS_ITS | Encounter Summary ---
Author Organization [facility] Address [address] [place] [address] Care Team Providers Care Monitoring Specialist Name Role Phone Molina De Anda MD Primary Care Provider [phone] Valerie Groves STONE ENGRAVER Unavailable [phone] [facility] + [phone] Encounter Details Date Type Department Care Team (Late st Contact Info) Description 01/22/2025 Telephone [facility] [address] [place] [address] Pascale Arana NP [address] [place] [address] Social History Tobacco Use Types Packs/Day Years Used Date Smoking Tobacco: Every Day Cigarettes 1 39.5 Started: 1985 Passive Smoke Exposure: Past Smokeless Tobacco: Never Comments:Thinking about quit ting Alcohol Use Standard Drinks/Week Comments Not Currently [...] How often do you attend chur or zoroastrianism services? Never 08/07/2023 Do you belong to [...] Recorded Patient Health Questionnaire-2 Score 5 01/22/2025 [facility] of Occupat ional Health - [...] Health Questionnaire-2 Score 5 01/22/2025 9:29 AM Francisca Norris PMHNP-BC * If you checked off any problems on this questionnaire so far, Question Answer Date of Assessment Author How difficult have these problems made it for you to do your work, take care of things at home, or get along with other people? Extremely difficult 01/22/2025 9:29 AM Karime Norris PMHNP-BC * Over the last 2 weeks, how often have you been bothered by any of the following problems? Question Answer Date of Assessment Author Feeling nervous, anxious, or on edge 2 01/22/2025 9:30 AM Karime Norris PMHNP-BC Not being able to stop or control worrying 3 01/22/2025 9:30 AM Karime Norris PMHNP-BC Worrying too much about different things 3 01/22/2025 9:30 AM Karime Norris PMHNP-TWIN Trouble relaxing 3 01/22/2025 9:30 AM Karime Franco PMHNP-BC Being so restless that it is hard to sit still 2 01/22/2025 9:30 AM Karime Norris PMHNP-BC Becoming easily annoyed or irritable 3 01/22/2025 9:30 AM EDKarime Tsai PMHNP-BC Feeling afraid as if something awful might happen 2 01/22/2025 9:30 AM Karime Norris PMHNP-BC JESSIKA-7 Total Score 18 01/22/2025 9:30 AM Karime Norris PMHNP-BC * Over the past 2 weeks, how often have you been bothered by any of the following problems? Question Answer Date of Assessment Author Little interest or pleasure in doing things More than half the days 01/22/2025 9:29 AM Karime Norris PMHNP-BC Feeling down, depressed, or hopeless Nearly every day 01/22/2025 9:29 AM Karime Norris PMHNP-BC Trouble falling or staying asleep, or sleeping too much Nearly every day 01/22/2025 9:29 AM Karime Norris PMHNP-BC Feeling tired or having little energy Nearly every day 01/22/2025 9:29 AM Karime Norris PMHNP-BC Poor appetite or overeating Not at all 01/22/2025 9:29 AM Karime Norris PMHNP-BC Feeling bad about yourself - or that you are a failure or have let yourself or your family down Nearly every day 01/22/2025 9:29 AM Karime Norris PMHNP-BC Trouble concentrating on things, such as reading the newspaper or watching television Nearly every day 01/22/2025 9:29 AM EDT Karime Dias , PMHNP-BC Moving or speaking so slowly that other people could have noticed? Or the opposite - being so fidgety or restless that you have been moving around a lot more than usual. Nearly every day 01/22/2025 9:29 AM EDT Karime Dias , PMHNP-BC Thoughts that you would be better off or hurting yourself in some way Several days 01/22/2025 9:29 AM EDT Liz Dias h, PMHNP-BC Patient Health Questionnaire-9 Score 21 01/22/2025 9:29 AM EDT Francisca Dias, PMHNP-BC documented as of this encounter Miscellaneous Notes * Telephone Encounter - NATACHA PICKARD - 01/22/2025 1:56 PM EDT Text Technical Education Teacher Good afternoon. This message is for Natacha or another personnel representative that works with [facility]. As we are calling regarding a disability claim for Talia Gipson data 913 of [id number]. Regarding her disability claim with [employer], we received a request where you indicated that [facility] began treating with the patient as of october 022024, but had been seen prior to that for a year. Information from the patient indicates she was seeing Valerie Stanton, who was at the same practice but left the practice. So what we are needing to verify are the dates that the patient was originally seen at your practice and if the received any treatment, medical advice, diagnosis and treatment related to the disabling condition by Valerie prior to her leaving during the dates of january 082023 and december 172024. If somebody from the office could please just call to provide this information that would be greatly appreciated. This is the file piece that we are needing in order to continue with our claim review and we are trying to help out the patients. So if you could respond as soon as possible, again, that would be greatly appreciated. Our toll free number [phone]. And this is regarding Talia's claim number [id number], our regular Business hours are 8AM to 5PM centralstandard time if it is easier to for you to update that fact that we sent over with the informationregarding the date the patient patient saw Valerie that would be appreciated as well. Our facts number [phone]. Thank you. And Have a great day. documented in this encounter Plan of Treatment Upcoming Encounters Date Type Department Care Team (Late st Contact Info) Description 02/05/2025 3:20 PM EDT Office Visit [facility] [address] [place] [address] Pascale Arana NP [address] [place] [address] 02/24/2025 3:00 PM EDT Office Visit [facility] [address] [place] [address] [place] [address] Karime Dias [facility] [address] [place] [address] [place] [address] 03/06/2025 3:00 PM EDT Social Work [facility] [address] [place] [address] [place] [address] Rohan Burns LPC documented as of this [...] documented as of this encounter Care Teams Monitoring Specialist Relationship Specialty Start Date End Date Molina De Anda MD [address] [place] [address] PCP - General Family Medicine 02/21/24 Valerie Groves NP [address] [place] [address] Nurse Practitioner Family Medicine 02/21/24 Karime Dias, ELIOT- [address] [facility] [address] [place] [address] Nurse Practitioner Behavioral Health 01/22/25 documented as of this encounter
--- OUTSIDE RECORDS SUMMARY | 2025-02-04 14:52 | XMS_ITS | Encounter Summary ---
Author Organization [facility] Address [address] [place] [address] Care Team Providers Care Senior Marketing Specialist Name Role Phone Molina De Anda MD Primary Care Provider [phone] Valerie Groves UNIT DIRECTOR Unavailable [phone] Karime Dias [facility] + [phone] Encounter Details Date Type Department Care Team (Late st Contact Info) Description 01/06/2025 Abstract [facility] [address] [place] [address] Pascale Arana NP [address] [place] [address] Social History Tobacco Use Types Packs/Day Years [...] you attend chur or jehovah's witness services? Never 08/07/2023 Do you belong to any clubs o r organizations such as methodist groups, unions, fraternal or athletic groups, or [...] Recorded Patient Health Questionnaire-2 Score 0 04/10/2024 [facility] of Occupat ional Health - [...] place to sleep or slept in a care home (including now)? No 08/07/2023 Comments Unknown Sex and Gender Information Value Date Recorded Sex Assigned at Not on file Legal Sex Female 7:47 PM EDT Gender Identity Not on file Sexual Orientation Not on file documented as of this encounter Plan of Treatment Upcoming Encounters Date Type Department Care Team (Late st Contact Info) Description 02/05/2025 3:20 PM EDT Office Visit [facility] [address] [place] [address] Pascale Arana NP [address] [place] [address] 02/24/2025 3:00 PM EDT Office Visit [facility] [address] [facility] [address] [place] [address] Karime Dias HNP- [address] [facility] [address] [place] [address] 03/06/2025 3:00 PM EDT Social Work [facility] [address] [facility] [address] [place] [address] Rohan Burns LPC documented as of this [...] as of this encounter Care Teams Senior Marketing Specialist Relationship Specialty Start Date End Date Molina De Anda MD [address] [place] [address] PCP - General Family Medicine 02/21/24 Valerie Groves NP [address] [place] [address] Nurse Practitioner Family Medicine 02/21/24 Karime Dias PMHNP- [address] [facility] [address] [place] [address] Nurse Practitioner Behavioral Health 01/22/25 documented as of this encounter
--- OUTSIDE RECORDS SUMMARY | 2025-02-04 14:52 | XMS_ITS | Encounter Summary ---
Author Organization [facility] Address [address] [place] [address] Care Team Providers Care Glost Tile Sorter Name Role Phone Shaikh NITHIN Main Primary Care Provider [phone] Shaikh NITHIN Main Primary Care Provider [phone] Molina De Anda MD Primary Care Provider [phone] Valerie Groves CARE PROFESSIONAL Unavailable [phone] Karime Dias [facility]- Unavailable [phone] Encounter Details Date Type Department Care Team (Late st Contact Info) Description 08/07/2023 Orders Only [facility] [address] [place] [address] Shaikh Main MD [address] [place] [address] Social History Tobacco Use Types Packs/Day Years [...] Recorded Patient Health Questionnaire-2 Score 6 08/03/2023 [facility] of Occupat ional Health - Occupational Stress [...] [facility] [address] [place] [address] Pascale Arana, MARY JO [address] [place] [address] 02/24/2025 3:00 PM EDT Office Visit [facility] [address] [place] [address] [place] [address] Dias Karime, PMHNP- [address] [place] [address] [place] [address] 03/06/2025 3:00 PM EDT Social Work [facility] [address] [place] [address] [place] [address] Rohan Burns LPC documented as of this [...] documented as of this encounter Care Teams Glost Tile Sorter Relationship Specialty Start Date End Date Shaikh Main MD PCP - General Internal Medicine 04/20/23 01/07/24 Shaikh Main MD [address] [place] [address] PCP - General Internal Medicine 01/08/24 02/20/24 Molina De Anda MD [address] [place] [address] PCP - General Family Medicine 02/21/24 Valerie Groves NP [address] [place] [address] Nurse Practitioner Family Medicine 02/21/24 Karime Dias ELIOT- [address] [facility] [place] [address] Nurse Practitioner Behavioral Health 01/22/25 documented as of this encounter
--- OUTSIDE RECORDS SUMMARY | 2025-02-04 14:52 | XMS_ITS | Encounter Summary ---
Author Organization [facility] Address [address] [place] [address] Care Team Providers Care Photofinishing Laboratory Worker Name Role Phone Shaikh NITHIN Main Primary Care Provider [phone] Shaikh NITHIN Main Primary Care Provider [phone] Molina De Anda MD Primary Care Provider [phone] Valerie Groves CAST IRON DRAIN PIPE LAYER Unavailable [phone] Karime Dias [facility]- Unavailable [phone] Encounter Details Date Type Department Care Team (Late st Contact Info) Description 08/03/2023 Orders Only [facility] [address] [place] [address] Shaikh Main MD [address] [place] [address] Social History Tobacco Use Types Packs/Day Years [...] How often do you attend chur or congregational services? Never 08/07/2023 Do you belong to any clubs o r organizations such as mu-ism groups, unions, fraternal or athletic groups, or [...] Recorded Patient Health Questionnaire-2 Score 6 08/03/2023 [facility] of Occupat ional Health - Occupational Stress [...] Office Visit [facility] [address] [place] [address] Pascale Arana NP [address] [place] [address] 02/24/2025 3:00 PM EDT Office Visit [facility] [address] [facility] [address] [place] [address] Karime Dias PMHNP- [address] [facility] [address] [place] [address] 03/06/2025 3:00 PM EDT Social Work [facility] [address] [place] [address] [place] [address] Rohan Burns LPC documented as of this [...] documented as of this encounter Care Teams Photofinishing Laboratory Worker Relationship Specialty Start Date End Date Shaikh Main MD PCP - General Internal Medicine 04/20/23 01/07/24 Shaikh Main MD [address] [place] [address] PCP - General Internal Medicine 01/08/24 02/20/24 Molina De Anda MD [address] [place] [address] PCP - General Family Medicine 02/21/24 Valerie Groves NP [address] [place] [address] Nurse Practitioner Family Medicine 02/21/24 Karime Dias, PMHNP- [address] [address] Nurse Practitioner Behavioral Health 01/22/25 documented as of this encounter
--- OUTSIDE RECORDS SUMMARY | 2025-02-04 14:52 | XMS_ITS | Encounter Summary ---
Author Organization [facility] Address [address] [place] [address] Care Team Providers Care Data Warehouse Administrator Name Role Phone Shaikh NITHIN Main Primary Care Provider [phone] Shaikh NITHIN Main Primary Care Provider [phone] Molina De Anda MD Primary Care Provider [phone] Valerie Groves PIT CLERK Unavailable [phone] Karime Dias [facility]- Unavailable [phone] Encounter Details Date Type Department Care Team (Late st Contact Info) Description 08/02/2023 Orders Only [facility] [address] [place] [address] Shaikh Main MD [address] [place] [address] Social History Tobacco Use Types Packs/Day Years [...] week 07/03/2023 How often do you attend [facility] center or lutheran services? Patient declined 07/03/2023 Do you belong to any clubs o r organizations such as adventism groups, unions, fraternal or athletic groups, or [...] Recorded Patient Health Questionnaire-2 Score 6 08/03/2023 [facility] of Occupat ional Health - Occupational Stress [...] slept in a detention (including now)? No 07/03/2023 Comments Unknown Sex [...] Visit [facility] [address] [place] [place] [address] Pascale Arana NP [address] [place] [address] 02/24/2025 3:00 PM EDT Office Visit [facility] SP [address] [facility] [address] [place] [address] Kar[facility] [address] [facility] [address] [place] [address] 03/06/2025 3:00 PM EDT Social Work [facility] CI [address] [place] [address] [place] [address] Rohan Burns LPC documented as of this encounter Procedures Procedure Name Priority Date/Time Associated Diagnosis Comments MISCELLANEOUS LAB TEST Routine 07/28/2023 1:49 PM EST documented in this encounter Results * - Miscellaneous Test (07/28/2023 1:49 PM EST) us Shaikh Etelvina [facility] BLOOD ORDERABLES Final Resu lt documented in this encounter Visit Diagnoses Not on filedocumented in this encounter Care Teams Data Warehouse Administrator Relationship Specialty Start Date End Date Shaikh Main MD PCP - General Internal Medicine 04/20/23 01/07/24 Shaikh Main MD [address] [place] [address] PCP - General Internal Medicine 01/08/24 02/20/24 Molina De Anda MD [address] [place] [address] PCP - General Family Medicine 02/21/24 Valerie Groves, MARY JO [address] [place] [address] Nurse Practitioner Family Medicine 02/21/24 Karime Dias PMHNP- [address] [facility] [address] [place] [address] Nurse Practitioner Behavioral Health 01/22/25 documented as of this encounter
--- OUTSIDE RECORDS SUMMARY | 2025-02-04 14:52 | XMS_ITS | Encounter Summary ---
Author Organization [facility] Address [address] [place] [address] Care Team Providers Care Celery Stripper Name Role Phone Molina De Anda MD Primary Care Provider [phone] Valerie Groves EQUINE PHARMACOLOGY TECHNICIAN Unavailable [phone] Karime Dias [facility] Unavailable + [phone] Encounter Details Date Type Department Care Team (Late st Contact Info) Description 01/06/2025 [facility] [address] [place] [address] Pascale Arana NP [address] [place] [address] Social History Tobacco Use Types Packs/Day Years [...] How often do you attend chur or restorationist services? Never 08/07/2023 Do you belong to any clubs o r organizations such as caodaism groups, unions, fraternal or athletic groups, or [...] Patient Health Questionnaire-2 Score 0 04/10/2024 [facility] of Occupat ional Health - Occupational [...] 02/05/2025 3:20 PM EDT Office Visit [facility] [address] [place] [address] Pascale Arana NP [address] [place] [address] 02/24/2025 3:00 PM EDT Office Visit [facility] [address] [facility] [address] [place] [address] Karime Dias HNP- [address] [facility] [address] [place] [address] 03/06/2025 3:00 PM EDT Social Work [facility] [address] [facility] [address] [place] [address] Rohan Burns LPC documented as of this [...] documented as of this encounter Care Teams Celery Stripper Relationship Specialty Start Date End Date Molina De Anda MD [address] [place] [address] PCP - General Family Medicine 02/21/24 Valerie Groves NP [address] [place] [address] Nurse Practitioner Family Medicine 02/21/24 Karime Dias PMHNP- [address] [facility] [address] [place] [address] Nurse Practitioner Behavioral Health 01/22/25 documented as of this encounter
--- OUTSIDE RECORDS SUMMARY | 2025-02-04 14:52 | XMS_ITS | Encounter Summary ---
Author Organization [facility] Address [address] [place] [place] [address] Care Team Providers Care On Site Property Manager Name Role Phone Molina De Anda MD Primary Care Provider [phone] Valerie Groves MEDICAL CLAIMS PROCESSOR Unavailable [phone] Karime Dias [facility]- Unavailable + [phone] Reason for Visit * Reason Comments Med Refill Encounter Details Date Type Department Care Team (Late st Contact Info) Description 02/01/2025 Refill [facility] [address] [place] [address] Pascale Arana NP [address] [place] [address] Bipolar disorder with severe depression (HCC) Social [...] 08/07/2023 How often do you attend chur [employer] or latter day services? Never 08/07/2023 Do you belong to any clubs o r organizations such as quaker groups, unions, fraternal or athletic groups, or [...] Recorded Patient Health Questionnaire-2 Score 5 01/22/2025 [facility] of Occupat ionnj Health - Occupational Stress Questionnaire Answer Date [...] place to sleep or slept in a penitentiary (including now)? No 08/07/2023 Comments Unknown Sex [...] Visit [facility] [address] [place] [address] Pascale Arana NP [address] [place] [address] 02/24/2025 3:00 PM EDT Office Visit [facility] SP [address] [facility] [address] [place] [address] Karime Dias, [facility] [address] [facility] [address] [place] [address] 03/06/2025 3:00 PM EDT Social Work [facility] [address] [place] [address] [place] [address] Rohan Burns LPC documented as of this encounter Goals Goal Patient Goal Type Associated Problems Recent Progress Patient-Stated? Author Help patient manage antidepressant medication Care Plan Patient on antidepressant monitoring plan No Shaikh Main MD documented as of this encounter Visit Diagnoses Diagnosis Bipolar disorder with severe depression (HCC) documented in this encounter Additional Health Concerns Active Problems Noted Date Diagnosed Date Patient on antidepressant monitoring plan 2023 Assessment Noted Time PHQ-9 Depression Total Score: 21 025 9:29 AM EDT documented as of this encounter Care Teams On Site Property Manager Relationship Specialty Start Date End Date Molina De Anda MD [address] [place] [address] PCP - General Family Medicine 02/21/24 Valerie Groves NP [address] [place] [address] Nurse Practitioner Family Medicine 02/21/24 [facility] [address] [facility] [address] [place] [address] Nurse Practitioner Behavioral Health 01/22/25 documented as of this encounter
--- OUTSIDE RECORDS SUMMARY | 2025-02-04 14:52 | XMS_ITS | Encounter Summary ---
Author Organization [facility] Address [address] [place] [address] Care Team Providers Care Polyethylene Combiner Name Role Phone Molina De Anda MD Primary Care Provider [phone] Valerie Groves ASSOCIATE ARTISTIC DIRECTOR Unavailable [phone] Kar[facility] Di[facility] Unavailable + [phone] Encounter Details Date Type Department Care Team (Late st Contact Info) Description 01/22/2025 Orders Only [facility] [address] [place] [address] [place] [address] Kraime Dias [facility]- [address] [facility] [address] [place] [address] Social History Tobacco Use Types Packs/Day Years [...] How often do you attend chur or gnosticist services? Never 08/07/2023 Do you belong to any clubs o r organizations such as pentecostal groups, unions, fraternal or athletic groups, or [...] Recorded Patient Health Questionnaire-2 Score 5 01/22/2025 [facility] of Occupat ional Health [...] annoyed or irritable 3 01/22/2025 9:30 AM Karime Norris PMHNP-BC Feeling afraid as if something awful [...] the days 01/22/2025 9:29 AM Karime Norris PMHNP-TWIN Feeling down, depressed, or hopeless Nearly every [...] day 01/22/2025 9:29 AM EDT Karime Dias PMHNP-BC Moving or speaking so slowly that other people could have noticed? Or the opposite - being so fidgety or restless that you have been moving around a lot more than usual. Nearly every day 01/22/2025 9:29 AM EDT Karime Dias PMHNP-BC Thoughts that you would be better off or hurting yourself in some way Several days 01/22/2025 9:29 AM EDT Liz Dias PMHNP-BC Patient Health Questionnaire-9 Score 21 01/22/2025 9:29 AM EDT Francisca Dias PMHNP-BC documented as of this encounter Plan of Treatment Upcoming Encounters Date Type Department Care Team (Late st Contact Info) Description 02/05/2025 3:20 PM EDT Office Visit [facility] [address] [place] [address] Pascale Arana NP [address] [place] [address] 02/24/2025 3:00 PM EDT Office Visit [facility] [address] [place] [address] [place] [address] Karime Dias PMHNP-BC [address] [place] [address] [place] [address] 03/06/2025 3:00 PM EDT Social Work [facility] [address] [place] [address] [place] [address] Rohan Burns LPC documented as of this [...] Noted Time PHQ-9 Depression Total Score: 21 01/22/ 025 9:29 AM EDT documented as of this encounter Care Teams Polyethylene Combiner Relationship Specialty Start Date End Date Molina De Anda MD [address] [place] [address] PCP - General Family Medicine 02/21/24 Valerie Groves NP [address] [place] [address] Nurse Practitioner Family Medicine 02/21/24 Kar[facility] [address] [facility] [address] [place] [address] Nurse Practitioner Behavioral Health 01/22/25 documented as of this encounter
--- OUTSIDE RECORDS SUMMARY | 2025-02-04 14:52 | XMS_ITS | Encounter Summary ---
Author Organization [facility] Address [address] [place] [address] Care Team Providers Care Compliance Mgr Name Role Phone Molina De Anda MD Primary Care Provider [phone] Valerie Groves FURNACE PROCESS SUPERVISOR Unavailable [phone] Karime Dias [facility] Unavailable + [phone] Encounter Details Date Type Department Care Team (Late st Contact Info) Description 01/20/2025 Abstract [facility] [address] [place] [address] Pascale Arana NP [address] [place] [address] Social History Tobacco Use Types Packs/Day Years [...] Recorded Patient Health Questionnaire-2 Score 5 01/22/2025 [facility] of Occupat ional Health - Occupational [...] things 3 01/22/2025 9:30 AM Karime Norris PMHNP-TIWN Trouble relaxing 3 01/22/2025 9:30 AM Karime [...] Visit [facility] [address] [place] [address] Pascale Arana, MARY JO [address] [place] [address] 02/24/2025 3:00 PM EDT Office Visit [facility] [address] [place] [address] [place] [address] Karime Dias PMHNP-BC [address] [place] [address] [place] [address] 03/06/2025 3:00 PM EDT Social Work [facility] [address] [place] [address] [place] [address] Rohan Burns LPC documented as of this [...] documented as of this encounter Care Teams Compliance Mgr Relationship Specialty Start Date End Date Molina De Anda MD [address] [place] [address] PCP - General Family Medicine 02/21/24 Valerie Groves NP [address] [place] [address] Nurse Practitioner Family Medicine 02/21/24 Karime Dias [facility] [address] [facility] [address] [place] [address] Nurse Practitioner Behavioral Health 01/22/25 documented as of this encounter
--- OUTSIDE RECORDS SUMMARY | 2025-02-04 14:52 | XMS_ITS | Encounter Summary ---
Author Organization [facility] Address [address] [place] [address] Care Team Providers Care Ham Clerk Name Role Phone Molina De Anda MD Primary Care Provider [phone] Valerie Groves GERMAN PROFESSOR Unavailable [phone] Karime Dias HNP- Unavailable [phone] Encounter Details Date Type Department Care Team (Late st Contact Info) Description 02/29/2024 Orders Only [facility] [address] [place] [address] Valerie Groves NP Social History Tobacco Use [...] How often do you attend chur or jain services? Never 08/07/2023 Do you belong to [...] Recorded Patient Health Questionnaire-2 Score 0 02/28/2024 [facility] Questionnaire Answer [...] 02/05/2025 3:20 PM EDT Office Visit [facility] [address] [place] [address] Pascale Arana NP [address] [place] [address] 02/24/2025 3:00 PM EDT Office Visit [facility] [address] [facility] [address] [place] [address] Karime Dias PMHNP-BC [address] [facility] [address] [place] [address] 03/06/2025 3:00 PM EDT Social Work [facility] BH [address] [place] [address] [place] [address] Rohan Burns LPC documented as of this [...] Laterality Modality Radiographic Maeve ging Valerie Groves GERMAN PROFESSOR IMG XR PROCEDURES Final Result documented in this encounter Visit Diagnoses Not on filedocumented in this encounter Additional Health Concerns Active Problems Noted Date Diagnosed Date Patient on antidepressant monitoring plan 2023 Assessment Noted Time PHQ-9 Depression Total Score: 23 024 4:27 PM EST documented as of this encounter Care Teams Ham Clerk Relationship Specialty Start Date End Date Molina De Anda MD [address] [place] [address] PCP - General Family Medicine 02/21/24 Valerie Groves NP [address] [place] [address] Nurse Practitioner Family Medicine 02/21/24 Karime iDas [facility] [address] [place] [address] [address] [place] [address] Nurse Practitioner Behavioral Health 01/22/25 documented as of this encounter
--- OUTSIDE RECORDS SUMMARY | 2025-02-04 14:52 | XMS_ITS | Encounter Summary ---
Author Organization [facility] Address [address] [place] [address] Care Team Providers Care Roll Over Press Operator Name Role Phone Shaikh NITHIN Main Primary Care Provider [phone] Shaikh NITHIN Main Primary Care Provider [phone] Molina De Anda MD Primary Care Provider [phone] Valerie Groves MANAGER MOUNTAIN Unavailable [phone] Karime Dias [facility]- Unavailable Encounter Details Date Type Department Care Team (Late st Contact Info) Description 11/20/2023 Orders Only [facility] [address] [place] [address] Shaikh Main MD [address] [place] [address] Social History Tobacco Use Types Packs/Day Years [...] How often do you attend chur or mandaeism services? Never 08/07/2023 Do you belong to [...] Recorded Patient Health Questionnaire-2 Score 0 11/13/2023 [facility] of Occupat ional Health - Occupational Stress [...] place to sleep or slept in a fci (including now)? No 08/07/2023 Comments Unknown Sex [...] Office Visit [facility] ER[facility] [address] [place] [address] Pascale Arana NP [address] [place] [address] 02/24/2025 3:00 PM EDT Office Visit [facility] [address] [place] [address] [place] [address] Karime Dias [facility]- [address] [place] [address] [place] [address] 03/06/2025 3:00 PM EDT Social Work [facility] [address] [place] [address] Rohan Burns LPC documented as of this [...] documented as of this encounter Care Teams Roll Over Press Operator Relationship Specialty Start Date End Date Shaikh Main MD PCP - General Internal Medicine 04/20/23 01/07/24 Shaikh Main MD [address] [place] [address] PCP - General Internal Medicine 01/08/24 02/20/24 Molina De Anda MD [address] [place] [address] PCP - General Family Medicine 02/21/24 Valerie Groves, MARY JO [address] [place] [address] Nurse Practitioner Family Medicine 02/21/24 Karime Dias PMHNP- [address] [place] [address] [place] [address] Nurse Practitioner Behavioral Health 01/22/25 documented as of this encounter
--- OUTSIDE RECORDS SUMMARY | 2025-02-04 14:52 | XMS_ITS | Encounter Summary ---
Author Organization [facility] Address [address] [place] [address] Care Team Providers Care Pay Agent Name Role Phone Molina De Anda MD Primary Care Provider [phone] Valerie Groves LEAF FAT SCRAPER Unavailable [phone] Karime Dias [facility] Unavailable + [phone] Encounter Details Date Type Department Care Team (Late st Contact Info) Description 01/22/2025 Bamboo flowsheet N[facility] [address] [facility] [address] [place] [address] Karime Dias [facility]- [address] [facility] [address] [place] [address] Social History Tobacco Use Types Packs/Day [...] How often do you attend chur or islam services? Never 08/07/2023 Do you belong to [...] Recorded Patient Health Questionnaire-2 Score 5 01/22/2025 [facility] of Occupat iontx Health - Occupational Stress Questionnaire Answer Date [...] Office Visit [facility] [address] [place] [address] Pascale Arana NP [address] [place] [address] 02/24/2025 3:00 PM EDT Office Visit [facility] SP [address] [place] [address] [place] [address] Karime Dias, PMHNP- [address] [place] [address] [place] [address] 03/06/2025 3:00 PM EDT Social Work [facility] [address] [facility] [address] [place] [address] Rohan Burns LPC documented as of this [...] documented as of this encounter Care Teams Pay Agent Relationship Specialty Start Date End Date Molina De Anda MD [address] [place] [address] PCP - General Family Medicine 02/21/24 Valerie Groves NP [address] [place] [address] Nurse Practitioner Family Medicine 02/21/24 Karime Dias [facility] [address] [facility] [address] [place] [address] Nurse Practitioner Behavioral Health 01/22/25 documented as of this encounter
--- OUTSIDE RECORDS SUMMARY | 2025-02-04 14:52 | XMS_ITS | Encounter Summary ---
Author Organization [facility] Address [address] [place] [address] Care Team Providers Care Radiologist Chief Of Breast Imaging Name Role Phone Molina De Anda MD Primary Care Provider [phone] Valerie Groves BILINGUAL SALES CONSULTANT Unavailable [phone] Karime Dias PMHNP- Unavailable + [phone] Encounter Details Date Type Department Care Team (Latest Contact Info) Description 01/22/2025 Travel Social History Tobacco Use Types Packs/Day Years [...] Recorded Patient Health Questionnaire-2 Score 5 01/22/2025 [facility] of Occupat ional Health - Occupational Stress [...] Score 5 01/22/2025 9:29 AM Francisca Norris PMHNP-TWIN * If you checked off any [...] edge 2 01/22/2025 9:30 AM Karime Norris PMHNPLEXUS Not being able to stop or control worrying 3 01/22/2025 9:30 AM Karime Norris PMHNPLEXUS Worrying too much about different things 3 01/22/2025 9:30 AM Karime Norris PMHNPLEXUS Trouble relaxing 3 01/22/2025 9:30 AM Karime Franco PMHNP-BC Being so restless that it is hard to sit still 2 01/22/2025 9:30 AM Karime Norris PMHNP-BC Becoming easily annoyed or irritable 3 01/22/2025 9:30 AM Karime Norris PMHNP-TWIN Feeling afraid as if something awful might happen 2 01/22/2025 9:30 AM Karime Norris PMHNPLEXUS JESSIKA-7 Total Score 18 01/22/2025 9:30 AM [...] every day 01/22/2025 9:29 AM Karime Norris PMHNPLEXUS Trouble falling or staying asleep, or sleeping too much Nearly every day 01/22/2025 9:29 AM Karime Norris PMHNP-BC Feeling tired or having little energy Nearly every day 01/22/2025 9:29 AM Karime Norris PMHNP-TWIN Poor appetite or overeating Not at all 01/22/2025 9:29 AM Karime Norris PMHNP-BC Feeling bad about yourself - or that you are a failure or have let yourself or your family down Nearly every day 01/22/2025 9:29 AM Karime Norris PMHNPLEXUS Trouble concentrating on things, such as reading the newspaper or watching television Nearly every day 01/22/2025 9:29 AM Karime Norris PMHNPLEXUS Moving or speaking so slowly that other people could have noticed? Or the opposite - being so fidgety or restless that you have been moving around a lot more than usual. Nearly every day 01/22/2025 9:29 AM Karime Norris PMHNPLEXUS Thoughts that you would be better off or hurting yourself in some way Several days 01/22/2025 9:29 AM EDT Liz Dias PMHNP-TWIN Patient Health Questionnaire-9 Score 21 01/22/2025 9:29 AM EDT Francisca Dias PMHNP-TWIN documented as of this encounter Plan of Treatment Upcoming Encounters Date Type Department Care Team (Late st Contact Info) Description 02/05/2025 3:20 PM EDT Office Visit [facility] [address] [place] [address] Pascale Arana NP [address] [place] [address] 02/24/2025 3:00 PM EDT Office Visit [facility] [address] [place] [address] [place] [address] Karime Dias PMHNP-TWIN [address] [place] [address] [place] [address] 03/06/2025 3:00 PM EDT Social Work [facility] [address] [place] [address] [place] [address] Rohan Burns LPC documented as of this [...] documented as of this encounter Care Teams Radiologist Chief Of Breast Imaging Relationship Specialty Start Date End Date Molina De Anda MD [address] [place] [address] PCP - General Family Medicine 02/21/24 Valerie Groves NP [address] [place] [address] Nurse Practitioner Family Medicine 02/21/24 Karime Dias, ELIOT- [address] [facility] [place] [address] Nurse Practitioner Behavioral Health 01/22/25 documented as of this encounter
--- OUTSIDE RECORDS SUMMARY | 2025-02-04 14:52 | XMS_ITS | Clinical Summary ---
Author Organization [facility] Address [address] [place] [address] Care Team Providers Care Small Lot Operator Name Role Phone Molina De Anda MD Primary Care Provider [phone] Valerie Groves CASINO MANAGER Unavailable [phone] Karime Dias PMHNP- Unavailable [phone] Allergies Active Allergy Reactions Criticality Noted Date Comments Penicillins Hives 07/04/2023 Medications meloxicam (Mobic) 15 MG tablet Take 15 mg by mouth Daily as needed for mild pain 10/03/19 25 Active fexofenadine (Layla Allergy) 180 MG tabletIndicati ons:Seasonal allergies Take 1 tablet (180 mg) by mouth Daily 30 tablet 5 10/03/19 25 Active fluticasone (Flonase) 50 MCG/ACT nasal sprayIndicatio ns:Environment al and seasonal allergies Administer 2 sprays into each nostril Daily Shake gently. Before first use, prime pump. After use, clean tip and replace cap. 16 g 11/19/19 25 Active gabapentin (Neurontin) 300 MG [...] Daily 90 capsule 1 11/20/19 025 Active Additional Information Patient taking differently:60 mg OralDaily in the morning, Reported on 01/22/2025 DULoxetine (Cymbalta) [address] capsuleIndicat ions:Fibromyal elba Take 1 capsule (30 mg) by mouth Daily 90 capsule 1 11/20/19 025 Active Additional Information Patient taking differently:30 mg OralNightly, Reported on 01/22/2025 zolpidem (Ambien) 10 MG tabletIndicati ons:Psychophys iological [...] wheezing 18 g 01/15/20 25 025 Active Cariprazine HCl (Vraylar) 1.5 MG capsuleIndicat ions:Severe episode of recurrent major depressive disorder, without psychotic features (HCC) Take 1.5 mg by mouth Daily 30 capsule 01/23/20 25 025 Active lamoTRIgine (LaMICtal) 25 MG tabletIndicati ons:Bipolar disorder with severe depression (HCC) Take 1 tablet (25 mg) by mouth Daily for 7 days 1 pill at bedtime for 7 weeks then stop medication 01/23/20 25 Active citalopram (CeleXA) 40 MG tabletIndicati ons:Bipolar disorder with severe depression (HCC) Take 1 tablet (40 mg) by mouth in the morning. 90 tablet 1 11/21/19 25 025 Discontinued(T herapy completed) phentermine (Adipex-P) 37.5 MG tabletIndicati ons:BMI 32.0-32.9,adul t,Class 1 obesity due to excess calories without serious comorbidity in adult, unspecified BMI Take 1 tablet (37.5 mg) by mouth in the morning. Take before meals. 30 tablet 11/21/19 25 025 Discontinued(T herapy completed) albuterol HFA 90 mcg/act inhalerIndicat ions:URTI (acute upper respiratory infection),Non -recurrent acute suppurative otitis media of both ears without spontaneous rupture of tympanic membranes Inhale 2 puffs every 4 (four) hours if needed for wheezing 18 g 12/21/19 25 025 Discontinued lansoprazole (Prevacid) [address] capsule Take 15 mg by mouth in the morning. Take before meals. 12/22/19 25 025 Discontinued(T herapy completed) lamoTRIgine (LaMICtal) 25 MG tablet Take by mouth 025 Discontinued(R eorder) lamoTRIgine (LaMICtal) 25 MG tabletIndicati ons:Bipolar disorder with severe depression (HCC) 1 pill at bedtime for 2 weeks, then increase to 1 pill twice a day 60 tablet 01/07/20 25 025 Discontinued(D ose adjustment) Active Problems Problem Noted Date Diagnosed Date Sleep apnea 01/22/2025 Severe episode of recurrent major depressive disorder, without psychotic features 01/22/2025 PTSD (post-traumatic stress disorder) 01/22/2025 Abnormal Papanicolaou smear of cervix with positive [...] current pill in half BMI 32.0-32.9,adult 10/23/2024 Overactive bladder due to prolapse of female [...] continue AFTER BM. Referral sent to GI Nicotine dependence 11/13/2023 Assessment & Plan (01/06/2025 7:38 AM EDT): The patient has been advised of the risks of continued smoking: stroke, ND, all forms of cancer, lung disease, and [...] of the risks of continued smoking: stroke, ND, all forms of cancer, lung disease, and [...] of the risks of continued smoking: stroke, ND, all forms of cancer, lung disease, and [...] of the risks of continued smoking: stroke, ND, all forms of cancer, lung disease, and [...] Iron due to prior gastric bypass surgery. Fibromyalgia 07/04/2023 Assessment & Plan (01/06/2025 6:10 [...] Elevate HOB if possible Current med: lansoprazole Insomnia 07/04/2023 Assessment & Plan (01/06/2025 6:10 PM [...] Monthly BSE Weight bearing exercise as well Encounter for screening mamm ogram for malignant neoplasm of breast 10/02/2024 01/22/2025 BMI 34.0-34.9,adult 10/02/2024 10/24/19 Female genital symptoms [...] of abdominal wall 08/12/2024 11/20/2024 Overview (08/12/2024): [facility] [id number] EXP: 10/22/2026 LOT # [id number] Assessment & Plan (08/12/2024 5:50 PM EST): [...] Plan (01/22/2024 5:29 PM EDT): Ordered mammogram. Seizure-like activity 01/22/20242024 Assessment & Plan (01/22/2024 5:28 PM EDT): New, 4 episodes in past 10 days. No aggravating factors Sudden onset feeling of restlessness, diaphoresis along with UE tremors, associated confusion that lasts after that event subsides/concludes. Stop Wellbutrin as associated with increased risk of seizure. Refer to Neurology. Fluid level behind tympanic membrane of both [...] oral Cefdinir, alongwith PO prednisone and benzonatate. Bipolar disorder with severe depression 07/04/2023 01/22/2025 Assessment & Plan (01/06/2025 6:09 PM EDT): [...] questions or concerns related to new medications. Breast screening 07/04/2023 10/02/2024 Assessment & Plan (07/04/2023 3:48 PM EST): Ordered mammogram Menorrhagia with regular cycle 06/30/2023 11/20/2024 Encounters Date Type Department Care Team Description 02/01/2025 Refill [facility] [address] [place] [address] Pascale Arana NP Bipolar disorder with severe depression (HCC) 01/22/2025 9:00 AM EDT Office Visit [facility] [address] [place] [address] Karime Dias PMHNP- JESSIKA (generalized anxiety disorder) ; Severe episode of recurrent major depressive disorder, without psychotic features (HCC); PTSD (post-traumatic stress disorder) ; Insomnia, unspecified type; Sleep apnea, unspecified type; Encounter for drug screening; Bipolar disorder with severe depression (HCC) 01/22/2025 Telephone [facility] [address] [place] [address] Pascale Arana NP 01/22/2025 Orders Only [facility] [address] [place] [address] Karime Dias, [facility] 01/22/2025 Bamboo flowsheet [facility] [address] [place] [address] Karime Dias, [facility]- 01/22/2025 Travel 01/20/2025 Abstract [facility] [address] [place] [address] Pascale Arana, MARY JO 01/15/2025 Telephone [facility] [address] [place] [address] Pascale Arana NP 01/14/2025 Clinisync Result Encounter [facility] External Department Unsolicited Pascale Arana NP 01/14/2025 Refill [facility] [address] [place] [address] Pascale Arana NP URTI (acute upper respiratory infection); Non-recurrent acute suppurative otitis media of both ears without spontaneous rupture of tympanic membranes 01/08/2025 Telephone [facility] [address] [place] [address] Pascale Arana NP 01/07/2025 Orders Only [facility] [address] [place] [address] Pascale Arana NP B12 deficiency (Primary Dx); Iron deficiency anemia secondary to inadequate dietary iron intake 01/07/2025 Telephone [facility] [address] [place] [address] Pascale Arana NP Vaginitis/Bacterial Vaginosis 01/06/2025 4:30 PM EDT Office Visit [facility] [address] [place] [address] Pascale Arana NP Bipolar disorder with severe depression (HCC) (Primary Dx); Gastroesophageal reflux disease, unspecified whether esophagitis present; Class 1 obesity due to excess calories without serious comorbidity with body mass index (BMI) of 32.0 to 32.9 in adult; Cigarette nicotine dependence without complication; Stress; Fibromyalgia; Psychophysiological insomnia 01/06/2025 Abstract [facility] [address] [place] [address] Pascale Arana, MARY JO 01/06/2025 Telephone [facility] [address] [place] [address] Pascale Arana, CASINO MANAGER 01/06/2025 Abstract [facility] [address] [place] [address] Pascale Arana, MARY JO 01/06/2025 Bamboo flowsheet [facility] [address] [place] [address] Pascale Arana, MARY JO 12/18/2024 Refill [facility] [address] [place] [address] Pascale Arana, CASINO MANAGER URTI (acute upper respiratory infection); Non-recurrent acute suppurative otitis media of both ears without spontaneous rupture of tympanic membranes 11/28/2024 Results Follow-Up [facility] [address] [place] [address] 11/20/2024 3:20 PM EDT Procedure Visit [facility] [address] [place] [address] Pascale Arana, CASINO MANAGER Well woman exam with routine gynecological exam [...] Pascale Arana NP 11/20/2024 Bamboo flowsheet [facility] [address] [place] [address] Pascale Arana NP 11/18/2024 Orders Only [facility] [address] [place] [address] Pascale Arana NP 11/18/2024 Refill [facility] [address] [place] [address] Molina De Anda MD Psychophysiological insomnia 11/18/2024 Refill [facility] [address] [place] [address] Molina De Anda MD Fibromyalgia 11/18/2024 Refill [facility] [address] [place] [address] Molina De Anda MD Fibromyalgia 11/18/2024 Refill [facility] [address] [place] [address] Molina De Anda MD Bipolar disorder with severe depression (HCC) 11/18/2024 Refill [facility] [address] [place] [address] Pascale Arana NP Gastroesophageal reflux disease, unspecified whether esophagitis present 11/18/2024 Refill [facility] [address] [place] [address] Pascale Arana NP Overactive bladder due to prolapse of female genital organ 11/18/2024 Refill [facility] [address] [place] [address] aPscale Arana NP Fibromyalgia 11/18/2024 Refill [facility] [address] [place] [address] Pascale Arana NP Environmental and seasonal allergies 11/18/2024 Refill [facility] [address] [place] [address] Molina De Anda MD Plantar fasciitis of right foot (Primary Dx) 11/18/2024 Refill [facility] [address] [place] [address] Pascale Arana NP URTI (acute upper respiratory infection); Non-recurrent acute suppurative otitis media of both ears without spontaneous rupture of tympanic membranes 11/14/2024 Orders Only [facility] [address] [place] [address] Pascale Arana NP UTI (urinary tract infection), uncomplicated (Primary Dx) 11/14/2024 Telephone [facility] [address] [place] [address] Pascale Arana NP Medication Question from Last 3 Months Family History Medical History Relation Name Comments Diabetes Father Roberto Heart disease Father Roberto Hypertension Father Roberot Stroke Father Roberto Breast cancer Maternal Grandmother Thyroid cancer Maternal Grandmother Depression Mother Marlyn Diabetes Mother Marlyn Breast cancer Mother's Sister Relation Name Status Comments Daughter 1 Alive Daughter 2 Alive Daughter 3 Alive Father Roberto Alive Maternal Grandmother Mother Marlyn Alive Mother's Sister Alive Son Alive Social [...] How often do you attend chur or scientology services? Never 08/07/2023 Do you belong to any clubs o r organizations such as mandaen groups, unions, fra[employer]icor [employer] or athletic groups, or school groups? No [...] Recorded Patient Health Questionnaire-2 Score 5 01/22/2025 [facility] - Occupational Stress [...] Pulse 78 01/22/2025 9:04 AM EDT Temperature 36.7 C (98 F) 01/06/2025 4:32 PM EDT Respiratory Rate 18 01/06/2025 4:32 PM EDT Oxygen Saturation 98% 01/06/2025 4:32 PM EDT Inhaled Oxygen Concentration - - Weight 80.7 kg (178 lb) 01/22/2025 9:04 AM EDT Height 165.1 cm (5' 5 ) 10/02/2024 4:51 PM EDT Body Mass Index 29.62 10/02/2024 4:51 PM EDT Plan of Treatment Upcoming Encounters Date Type Department Care Team (Late st Contact Info) Description 02/05/2025 3:20 PM EDT Office Visit [facility] [address] [place] [address] Pascale Arana, CASINO MANAGER [address] [place] [address] 02/24/2025 3:00 PM EDT Office Visit [facility] [address] [place] [address] Karime Dias, PMHNP-BC [address] [place] [address] 03/06/2025 3:00 PM EDT Social Work [facility] [address] [place] [address] Rohan Burns LPC Health Maintenance Due Date Last Done Comments CT Colonography 1971 FIT-DNA 1971 FIT 1971 FOBT 1971 Lung Cancer Screening Shared Decision Making 1971 Sigmoidoscopy 1971 HPV/Cotest 2001 Influenza Vaccine (#1) 2025 Mammogram 10/23/2025 10/23/2024 Cervical Cancer Screening 11/21/2027 Pap Smear 11/21/2027 11/20/2024 Colonoscopy 07/19/2033 07/19/2023, 07/19/2023 Colorectal Cancer Screening 07/19/2033 Goals Goal Patient Goal Type Associated Problems Recent Progress Patient-Stated? Author Help patient manage antidepressant medication Care Plan Patient on antidepressant monitoring plan Shaikh Morel MD Procedures Procedure Name Priority Date/Time Associated [...] 3:55 PM EDT from Last 3 Months or Most Recently Relevant to Health Maintenance Results * (ABNORMAL) VITAMIN B12 (01/14/2025 12:49 PM EDT) VITAMIN B12 >2000(A) 232 - 1245 pg/mL [facility] Comment: Performed at: [address] [id number] Oim Consultant: Hector Franco PhD, Phone: [phone] 01/14/2025 12:4 9 PM EDT 01/14/2025 12:50 PM EDT Narrative [facility] - 01/15/2025 4:07 AM EDT us Pascale Arana CASINO MANAGER LAB BLOOD ORDERABLES Final Resu lt [facility] TB * TRANSFERRIN (01/14/2025 12:49 PM EDT) Pathologist [facility] TRANSFERRIN 296 192 - 364 mg/dL [facility] Comment: Performed at: [address] [id number] Oim Consultant: Hector Franco PhD, Phone: [phone] 01/14/2025 12:4 9 PM EDT 01/14/2025 12:50 PM EDT Narrative [facility] - 01/15/2025 5:07 AM EDT us Pascale Arana CASINO MANAGER LAB BLOOD ORDERABLES Final Resu lt Performing Organization Address [facility]/ZIP Co de Phone Number [facility] * METRO IRON AND TIBC (01/14/2025 12:49 PM EDT) [facility] TB IRON 54.0 50.0 - 170.0 ug/dL [facility] TOTAL IRON BINDING CAPACITY 387.0 250.0 - 450.0 ug/dL [facility] PERCENT IRON SATURATION 14.0 % [facility] 01/14/2025 12:4 9 PM EDT 01/14/2025 12:50 PM EDT Narrative [facility] - 01/14/2025 1:50 PM EDT Pascale Arana NP [facility] Final Result Performing Organization Address [facility] de Phone Number [facility] TB * CCF FERRITIN (01/14/2025 12:49 PM EDT) [facility] FERRITIN 10.0 8.0 - 252.0 ng/mL [facility] 01/14/2025 12:4 9 PM EDT 01/14/2025 12:50 PM EDT Narrative [facility] - 01/14/2025 2:05 PM EDT Pascale Arana NP [facility] Final Result Performing Organization Address [facility] de Phone Number [facility] TB * (ABNORMAL) ALL CBC WITH AUTO DIFF (01/14/2025 12:49 PM EDT) [facility] TB WBC 6.1 4.0 - 11.0 10 [...] Narrative [facility] - 01/14/2025 1:00 PM EDT Pascale Arana NP [facility] Final Result [facility] * (ABNORMAL) IGP,APTIMA HPV,AGE GDLN (11/20/2024 4:05 PM EDT) Pathologist [facility] AGE GDLN ACOG TESTING Note . TB Comment: TESTS RESULT FLAG UNITS REF RANGE LAB Clinician Provided Cytology Information Source.............Cervix;Endocervix No. of containers..01 ThinPrep Vial Nolan Barros... FLAG LEGEND: L-Low Normal,H-High Normal,LL-Alert Low,HH-Alert High <-Panic Low,>-Panic High,A-Abnormal,AA-Critical Abnormal Performed at: 01 =[address] [facility] [address] Monika Norton MD, IGP, APTIMA HPV, RFX 16/18,45 Note . [facility] Comment: TESTS RESULT FLAG UNITS REF RANGE LAB DIAGNOSIS: 02 NEGATIVE FOR INTRAEPITHELIAL LESION OR MALIGNANCY. Specimen adequacy: 02 Satisfactory for evaluation. Endocervical and/or squamous metaplastic cells (endocervical component) are present. Performed by: 02 Carrol Guerrero, Automation Machine Operator . 02 Note: Note 02 The Pap [...] <-Panic Low,>-Panic High,A-Abnormal,AA-Critical Abnormal Performed at: [address] [address] Monika Norton MD, HPV APTIMA Positive(A) Negative [facility] Comment: This nucleic acid amplification test detects fourteen high- risk HPV types (16,18,31,33,35,39,45,51,52,56,58,59,66,68) without differentiation. HPV GENOTYPE 16 Negative Negative [facility] HPV GENOTYPE 18,45 Negative Negative [facility] Comment: Performed at: =[address] [id number] Oim Consultant: Monika Norton MD, Phone: [phone] Performed at: [address] [id number] Oim Consultant: Monika Norton MD, Phone: [phone] 11/20/2024 4:05 PM EDT 11/21/2024 7:10 AM EDT Narrative [facility] - 11/26/2024 8:08 PM EDT BRUSH-ALONE CERVIX ENDOCERVIX Pascale Arana NP LAB BLOOD ORDERABLES Final Resu lt [facility] * SCANNED LABS (11/18/2024 2:41 PM EDT) Pascale Arana NP LAB CHG PERFORMABLES Final Resu lt * URINARY TRACT INFECTION (HTRX) (11/14/2024 12:00 AM EDT) [facility] ACINETOBACTER BAUMANII 0.000 19.961 - 24.689 ppm 11/16/2024 10:36 AM EDT [facility] ACINETOBACTER BAUMANII Not Detected 19.961 - 24.689 ppm 11/16/2024 10:36 AM EDT [facility] CITROBACTER FREUNDII 0.000 23.000 - 31.881 ppm 11/16/2024 10:36 AM EDT [facility] CITROBACTER FREUNDII Not Detected 23.000 - 31.881 ppm 11/16/2024 10:36 AM EDT [facility] ENTEROBACTER AEROGENES, CLOACAE 0.000 23.000 - 31.535 ppm 11/16/2024 10:36 AM EDT [facility] ENTEROBACTER AEROGENES, CLOACAE Not Detected 23.000 - 31.535 ppm 11/16/2024 10:36 AM EDT [facility] ENTEROCOCCUS FAECALIS, FAECIUM 0.000 26.000 - 31.575 ppm 11/16/2024 10:36 AM EDT [facility] ENTEROCOCCUS FAECALIS, FAECIUM Not Detected 26.000 - 31.575 ppm 11/16/2024 10:36 AM EDT [facility] ESCHERICHIA COLI 0.000 23.000 - 28.500 ppm 11/16/2024 10:36 AM EDT [facility] ESCHERICHIA COLI Not Detected 23.000 - 28.500 ppm 11/16/2024 10:36 AM EDT [facility] KLEBSIELLA PNEUMONIAE, OXYTOCA 0.000 23.000 - 30.500 ppm 11/16/2024 10:36 AM EDT [facility] KLEBSIELLA PNEUMONIAE, OXYTOCA Not Detected 23.000 - 30.500 ppm 11/16/2024 10:36 AM EDT [facility] MORGANELLA MORGANII 0.000 19.961 - 24.689 ppm 11/16/2024 10:36 AM EDT [facility] MORGANELLA MORGANII Not Detected 19.961 - 24.689 ppm 11/16/2024 10:36 AM EDT [facility] PROTEUS MIRABILIS, VULGARIS 0.000 23.000 - 28.500 ppm 11/16/2024 10:36 AM EDT [facility] PROTEUS MIRABILIS, VULGARIS Not Detected 23.000 - 28.500 ppm 11/16/2024 10:36 AM EDT [facility] PSEUDOMONAS AERUGINOSA 0.000 23.000 - 28.500 ppm 11/16/2024 10:36 AM EDT [facility] PSEUDOMONAS AERUGINOSA Not Detected 23.000 - 28.500 ppm 11/16/2024 10:36 AM EDT [facility] STAPHYLOCOCCUS AUREUS 0.000 26.000 - 30.902 ppm 11/16/2024 10:36 AM EDT [facility] STAPHYLOCOCCUS AUREUS Not Detected 26.000 - 30.902 ppm 11/16/2024 10:36 AM EDT [facility] STREPTOCOCCUS AGALACTIAE (GROUP B STREP) 0.000 26.000 - 32.222 ppm 11/16/2024 10:36 AM EDT [facility] STREPTOCOCCUS AGALACTIAE (GROUP B STREP) Not Detected 26.000 - 32.222 ppm 11/16/2024 10:36 AM EDT [facility] TEJINDER ALBICANS, PARAPSILOSIS, TROPICALIS 0.000 19.961 - 30.770 ppm 11/16/2024 10:36 AM EDT [facility] TEJINDER ALBICANS, PARAPSILOSIS, TROPICALIS Not Detected 19.961 - 30.770 ppm 11/16/2024 10:36 AM EDT [facility] TEJINDER GLABRATA 0.000 23.000 - 32.138 ppm 11/16/2024 10:36 AM EDT [facility] TEJINDER GLABRATA Not Detected 23.000 - 32.138 ppm 11/16/2024 10:36 AM EDT [facility] TEJINDER KRUSEI 0.000 23.000 - 32.271 ppm 11/16/2024 10:36 AM EDT [facility] TEJINDER KRUSEI Not Detected 23.000 - 32.271 ppm 11/16/2024 10:36 AM EDT [facility] SERRATIA MARCESCENS 0.000 23.000 - 31.204 ppm 11/16/2024 10:36 AM EDT [facility] SERRATIA MARCESCENS Not Detected 23.000 - 31.204 ppm 11/16/2024 10:36 AM EDT [facility] STREPTOCOCCUS PYOGENES (GROUP A STREP) 0.000 19.961 - 24.689 ppm 11/16/2024 10:36 AM EDT [facility] STREPTOCOCCUS PYOGENES (GROUP A STREP) Not Detected 19.961 - 24.689 ppm 11/16/2024 10:36 AM EDT [facility] STAPHYLOCOCCUS EPIDERMIDIS, HAEMOLYTICUS, LUGDUNENSIS, SAPROPHYTICUS (URINA 0.000 19.961 - 24.689 ppm 11/16/2024 10:36 AM EDT [facility] STAPHYLOCOCCUS EPIDERMIDIS, HAEMOLYTICUS, LUGDUNENSIS, SAPROPHYTICUS (URINA Not Detected 19.961 - 24.689 ppm 11/16/2024 10:36 AM EDT [facility] STAPHYLOCOCCUS EPIDERMIDIS, HAEMOLYTICUS, LUGDUNENSIS, SAPROPHYTICUS (URINA 0.000 19.961 - 24.689 ppm 11/16/2024 10:36 AM EDT [facility] STAPHYLOCOCCUS EPIDERMIDIS, HAEMOLYTICUS, LUGDUNENSIS, SAPROPHYTICUS (URINA Not Detected 19.961 - 24.689 ppm 11/16/2024 10:36 AM EDT [facility] Urine 11/14/2024 11/16/2024 5:2 3 AM EDT us Pascale Arana CASINO MANAGER LAB BLOOD ORDERABLES Final Resu lt [facility] [address] [place] [address] * MM TOMOSYNTHESIS SCREENING BI (10/23/2024 3:55 PM EDT) Anatomical Region Laterality Modality Other 10/23/2024 3:55 PM EDT Narrative 10/23/2024 3:55 [place] [address] Mammography Report Signed Patient: TALIA RUTHERFORD MR#: [id number] : 1970 Acct:[id number] Age/Sex: 54 / F ADM Date: 10/23/24 Loc: MAMMO Attending Dr: Pascale Arana NP Ordering Physician: Pascale Arana NP Results: Date of Service: 10/23/24 Follow Up: Procedure(s): MM tomosynthesis screening BI Accession Number(s): [id number] cc: Pascale Arana NP Patient Name: TALIA RUTHERFORD MR#: [id number] : 1970 Exam Date: 10/23/2024 Ordering Doctor: [...] breast cancer at age 51. LOCATION: [facility] BREAST COMPOSITION: There are scattered areas [...] Massey M.D. Signed By: 10/23/24 1555 DD/ 1554 TD/TT: Cut Off Operator Scorer: Procedure Note Radiology, Radiologist, MD - 10/23/2024 [place] [address] Mammography Report Signed Patient: TALIA RUTHERFORD DMR#: [id number] : 1970Acct:[id number] Age/Sex: 54 / FADM Date: 10/23/24 Loc: MAMMO Attending Dr: Pascale Arana NP Ordering Physician: Pascale Arana NPResults: Date of Service: 10/23/24Follow Up: Procedure(s): MM tomosynthesis screening BI Accession Number(s): [id number] cc: Pascale Arana NP Patient Name: TALIA RUTHERFORD MR#: [id number] : 1970 Exam Date: 10/23/2024 Ordering Doctor: [...] breast cancer at age 51. LOCATION: [facility] BREAST COMPOSITION: There are scattered areas [...] 15:55 Dictated By: Merlin Massey M.D. Signed By:10/23/245 DD/ 54 TD/TT: Cut Off Operator Scorer: Pascale Arana NP [facility] Final Result from Last 3 Months or Most Recently Relevant to Health Maintenance Additional Health Concerns Active Problems Noted Date Diagnosed Date Patient on antidepressant monitoring plan 2023 Insurance [employer] Care Teams Small Lot Operator Relationship Specialty Start Date End Date Molina De Anda MD [address] [place] [id number] PCP - General Family Medicine 02/21/24 Valerie Groves NP [address] [place] [address] Nurse Practitioner Family Medicine 02/21/24 Karime Dias PMHNP- [address] [address] [place] [address] Nurse Practitioner Behavioral Health 01/22/25
--- OUTSIDE RECORDS SUMMARY | 2025-02-04 14:52 | XMS_ITS | Encounter Summary ---
Author Organization [facility] Address [address] [place] [address] Care Team Providers Care Senior Software Tester Name Role Phone Molina De Anda MD Primary Care Provider [phone] Valerie Groves MANAGING JEWELER Unavailable [phone] Karime Dias PMHNP- Unavailable + [phone] Encounter Details Date Type Department Care Team (Late Contact Info) Description 11/28/2024 Results Follow-Up [facility] [address] [place] [id number] Social History Tobacco Use Types Packs/Day Years [...] often do you attend chur ch or methodist services? Never 08/07/2023 Do you belong to any clubs o r organizations such as mosque groups, unions, fraternal or athletic groups, or [...] Recorded Patient Health Questionnaire-2 Score 0 [facility] Answer Date [...] place to sleep or slept in a alf (including now)? No 08/07/2023 Comments Unknown Sex and Gender Information Value Date Recorded Sex Assigned at Not on file Legal Sex Female 7:47 PM EDT Gender Identity Not on file Sexual Orientation Not on file documented as of this encounter Plan of Treatment Upcoming Encounters Date Type Department Care Team (Late st Contact Info) Description 02/05/2025 3:20 PM EDT Office Visit [facility] [address] [place] [address] Pascale Arana NP [address] [place] [address] 02/24/2025 3:00 PM EDT Office Visit [facility] [address] [facility] [address] [place] [address] Karime Dias PMHNP- [address] [facility] [address] [place] [address] 03/06/2025 3:00 PM EDT Social Work [facility] [address] [facility] [address] [place] [address] Rohan Burns, EH documented as of this encounter Goals Goal [...] as of this encounter Care Teams Senior Software Tester Relationship Specialty Start Date End Date Molina De Anda MD [address] [place] [address] PCP - General Family Medicine 02/21/24 Valerie Groves NP [address] [place] [address] Nurse Practitioner Family Medicine 02/21/24 [facility] [address] [address] [place] [address] Nurse Practitioner Behavioral Health 01/22/25 documented as of this encounter
--- NOTE | 2025-02-04 14:57 | MR_ITS ---
[address] [address] Patient Name: KALYN RUTHERFORD MRN: [id number] date: 1970 Sex: F Assigned Patient Location: MRI Current Patient Location: Accession/Order Number: [id number] Exam Date: 02/05/2025 12:10 Report Date: 02/05/2025 12:16 At the request of: FLORES NGUYỄN MD Procedure: MR cervical spine wo con EXAMINATION: MRI OF THE CERVICAL SPINE WITHOUT CONTRAST CLINICAL DATA: spinal stenosis, cervical region. TECHNIQUE: Multiecho imaging was performed in the sagittal and axial plane without contrast administration. FINDINGS: The craniocervical junction is maintained. Cervical vertebral heights and alignment and bone marrow signal is unremarkable. Mild multilevel intervertebral space narrowing C3-C7. Multilevel facet arthropathy. Cervical cord demonstrate normal signal and morphology. Prevertebral and paraspinal soft tissues are unremarkable. C2-C3: Broad-based bulge minor facet arthropathy. Canal neural foraminal pain. C3-C4: Broad-based disc bulge with uncovertebral spurring. Moderate right and mild left neural foraminal narrowing. Canal is patent. C4-C5: Broad-based disc bulge. Uncovertebral spurring greatest right. Moderate right and qdjr-ex-amrrhjqb left-sided neural foraminal narrowing. Mild canal narrowing. C5-6: Broad-based disc bulge with uncovertebral spurring, greatest left. Moderate right-sided moderate to severe left-sided neural foraminal narrowing. Mild central canal stenosis. C6-C7: Broad-based disc osteophyte complex with uncovertebral spurring. Bpcn-cg-ssvmufkw right moderate severe left neural foraminal narrowing. Wgey-bz-ozjvocvp canal narrowing. C7-T1: Minimal vertebral hypertrophy. Moderate facet arthropathy. Canal and patent. Mild foraminal narrowing. MR/MR cervical spine wo con IMPRESSION: Overall multilevel degenerative changes with up to ddbq-bk-nxsjjrbn central canal narrowing. Multilevel foraminal encroachment as noted above. Impression dictated by: Mushtaq Antony M.D. 02/05/2025 12:16 PM Dictation Location: [place] [address] Electronically authenticated by: [id number] Y Date: 02/05/2025 12:16
--- NOTE | 2025-02-04 14:57 | MR_ITS ---
[address] [address] Patient Name: KALYN RUTHERFORD MRN: [id number] date: 1970 Sex: F Assigned Patient Location: MRI Current Patient Location: Accession/Order Number: [id number] Exam Date: 02/05/2025 12:16 Report Date: 02/05/2025 14:18 At the request of: FLORES NGUYỄN MD Procedure: MR lumbar spine wo con MRI lumbar spine performed without contrast INDICATION: Spinal stenosis of lumbar region with neurogenic claudication COMPARISON: None FINDINGS: Lumbar vertebral heights, alignment and bone marrow signal is unremarkable. Mild levocurvature. Moderate intervertebral space narrowing L5-S1. Mild intervertebral space narrowing L4-5. Multilevel arthropathy notably L3-S1. Schmorl's node deformities identified L5-S1. Conus medullaris terminates normally at inferior plate of L1. Paraspinal soft tissues unremarkable. On T12-L1: Visualized sagittal images. No significant disease central canal or neural from narrowing identified . L1-2: Mild disc desiccation. No focal disc protrusion central canal or neural from narrowing. Mild to moderate facet arthropathy. L2-L3: Disc desiccation. Mild to moderate facet arthropathy. Canal and neural foramen are patent. L3-4: Broad-based disc bulge with central T2 hyperintense annular fissure. Moderate facet arthropathy. Otherwise the canal is patent. Right foramen is patent. Mild left foraminal narrowing. L4-5: Circumferential disc bulge with central T2 hyperintense annular fissure and minimal focal central extrusion. Moderate facet arthropathy. Mild canal narrowing. Mild neural from narrowing. L5-S1: Circumferential disc bulge with moderate facet arthropathy. Jpnh-kz-adsyitkv right-sided and mild left-sided neural foraminal narrowing . 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 Impression dictated by: Mushtaq Antony M.D. 02/05/2025 2:18 PM Dictation Location: [place] [address] Electronically authenticated by: [id number] Y Date: 02/05/2025 14:18
== END 2025-02-04 14:49 | disposition home or self-care (01) ==
LOC: MRI 14:49
PROVIDERS: PCP Nurse Practitioner; Visit Provider Anesthesiology
DX: M48.02 Spinal stenosis, cervical region (principal); M48.062 Spinal stenosis, lumbar region with neurogenic claudication
CPT/HCPCS: 72141; 72148

== ENCOUNTER 2025-02-19 09:27 | Outpatient (OUT) | payer OTHER, SELFPAY ==
--- OUTSIDE RECORDS SUMMARY | 2024-09-04 11:15 | XMS_ITS ---
Author Organization [facility] in [place] Address [address] [place] [address] Care Team Providers Care Baked Goods Stock Clerk Name Role Phone None, Unknown or Primary Care Provider Unavailab Mathew Lee Unavailable [phone] Allergies Allergen (clinical drug ingredient) Drug/Non Drug [...] Problem Status W/U Status Risk Notes Problem [id number] Primary osteoarthrit is, left ankle and foot (M19.072) Active confirmed Vital Signs Heart Rate 84 /min 09/04/2024 Respiratory Rate 16 /min 09/04/2024 Oximetry 98 % 09/04/2024 Encounters Encounter Location Date Provider Diagnosis [facility] (PODIATRY) [address] [place] [address] [place] [address] 09/04/2024 Mathew Hoff Pain due to internal [...] * Talia RUTHERFORDDOB:[birth year] (54 yo F)Acc No.[id number]:09/04/2024 Follow Up Patient: Talia FREED Provider: Miguel Hoff DPM, MS :1970 A ge:54 Y S ex:Female Date:09/04/2024 Address:[address] [place], [id number] Pcp:Unknown or None Check In:03:07 PM ESTCheck [...] M usculoskeletal: Bone/Joint Symptoms d enies. C intermediate Pain d enies.?Leg cramps d enies. N [...] 09/04/2024 Generated for Taina marina/Nhi/Josiasitting on: 0 02/19/2025 09:30 AM EDT History and Physical Notes * HPI [...]
--- OUTSIDE RECORDS SUMMARY | 2024-09-04 11:53 | XMS_ITS ---
Author Organization The [facility] in [place] Address [address] [place] [address] Care Team Providers Care Chronic Disease Epidemiologist Name Role Phone None, Unknown or Primary Care Provider Unavailab Mathew Lee [phone] REASON FOR VISIT meds Medications Medication SIG (Take, Route, Fr equency, Duration) Notes Start Date End Date Status Meloxicam 15 MG 1 tablet Orally Once a day for 30 days 09/04/2024 Active Encounters Encounter Location Date Provider Diagnosis [facility] (PODIATRY) [address] [place] [address] [place] [address] 09/04/2024 Mathew Hoff Plan Of Treatment Medication Medication Name Sig Start Date Stop Date Notes Meloxicam 15 MG 1 tablet Orally Once a day for 30 days 06/2025 Progress Notes * Talia MERCADODOB:[birth year] (54 yo F)Acc No.[id number]:09/04/2024 Patient: Talia FREED :1970 A ge:54 Y S ex:Female Address:[address] [place], [address] * Refills Start Meloxicam Tablet, 15 MG, Orally, 30, 1 tablet, Once a day, 30 days, Refills=3 * true * Date: Generated for Lbi ng/Fadoloresg/eTransmitting on: 0 02/19/2025 09:31 AM EDT
--- OUTSIDE RECORDS SUMMARY | 2024-09-18 11:30 | XMS_ITS ---
Author Organization [facility] in [place] Address [address] [place] [address] Care Team Providers Care Air Analysis Engineering Technician Name Role Phone None, Unknown or Primary Care Provider Unavailab Mathew Lee Unavailable [phone] Allergies Allergen (clinical drug ingredient) Drug/Non Drug Allergy documented on EMR Reaction Allergy Type Onset Date Status Penicillin rash Drug Allergy Active REASON FOR VISIT CT REVIEW Medications Medication SIG (Take, Route, Frequency, Duration) Notes Start Date End Date Status Tolterodine Tartrate ER 4 MG 1 capsule Orally Once a day Active Lansoprazole 30 MG 1 tablet Orally Once a day Active Gabapentin Active Prevacid Active Meloxicam 15 MG 1 tablet Orally Once a day for 30 days 09/04/2024 Active Ambien Active CeleXA Active ARIPiprazole 10 MG 1 tablet Orally Once a day Active Detrol Active Citalopram Hydrobromide 40 MG 0.5 tablet Orally Once a day Active Abilify Active Social History Tobacco Use: Social History Observation Description Date Details (start date - stop date) Current Smoker NA - NA Tobacco Use/Smoking Question Answer Notes Patient is a current smoker How often do you smoke cigarettes? every day How many cigarettes a day do you smoke? 11-20 Vital Signs Heart Rate 85 /min 09/18/2024 Respiratory Rate 16 /min 09/18/2024 Oximetry 97 % 09/18/2024 Encounters Encounter Location Date Provider Diagnosis [facility] (PODIATRY) [address] [place] [address] [place] [address] 09/18/2024 Mathew Hoff 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.0 ; Primary osteoarthritis, left ankle and foot M19.072 and Pain due to internal orthopedic prosthetic devices, implants and grafts, initial encounter T84.84XA Assessments Encounter Date Diagnosis (ICD Code) Assessment Notes Treatment Notes Treatment Clinical Notes Section Notes 09/18/2024 Pseudarthrosis after fusion or arthrodesis (ICD-10 - M96.0) Patient presents after CT scan relating that she is now having no pain with the meloxicam however having GI pain since starting meloxicam and vitamin B12. I recommended that she take the meloxicam only when needed given her history of GI issues and in addition only take one half of the meloxicam tablet to alleviate pain. I do not recommend at this point simply removing her hardware given the nonunion. I recommended a bone stimulator which was ordered today to help heal the nonunion then if still having pain we will consider having the hardware removed especially if the second tarsometatarsal joint fuses with noninvasive bone stimulator. She would likely require an additional CT scan prior to any additional surgery. She will follow-up with me in 3 months in my new office and was given the new office number. 09/18/2024 Primary osteoarthritis, left ankle and foot (ICD-10 - M19.072) 09/18/2024 Pain due to internal orthopedic prosthetic devices, implants and grafts, initial encounter (ICD-10 - T84.84XA) Plan Of Treatment Treatment Notes Assessment Notes Pseudarthrosis after fusion or arthrodes is Patient presents after CT scan relating that she is now having no pain with the meloxicam however having GI pain since starting meloxicam and vitamin B12. I recommended that she take the meloxicam only when needed given her history of GI issues and in addition only take one half of the meloxicam tablet to alleviate pain. I do not recommend at this point simply removing her hardware given the nonunion. I recommended a bone stimulator which was ordered today to help heal the nonunion then if still having pain we will consider having the hardware removed especially if the second tarsometatarsal joint fuses with noninvasive bone stimulator. She would likely require an additional CT scan prior to any additional surgery. She will follow-up with me in 3 months in my new office and was given the new office number. Progress Notes * Juan J RUTHERFORD:[birth year] (54 yo F)Acc No.[id number]:09/18/2024 Follow Up Patient: Lian FREEDyl Provider: Miguel Hoff DPM, MS :1970 A ge:54 Y S ex:Female Date:09/18/2024 Address:[address] [place] [place], [phone] Pcp:Unknown or None Check In:03:18 PM ESTCheck O ut:04:03 PM EST Subjective: * Chief Complaints: * C T REVIEW * HPI: G eneral: Pt has h/o left midfoot fusion DOS 03/10/2022. Pt reports hardware has been increasingly bothersome, would like to discuss having it removed. Pt has been taking meloxicam daily which helps tremendously however having GI pain since starting. 0 /10 pain today. Here to review CT. * ROS: G eneral/Constitutional: Chills d enies. [...] M usculoskeletal: Bone/Joint Symptoms d enies. C penitentiary Pain d enies.?Leg cramps d enies. N [...] K21.9 GERD (gastroesophage al reflux disease) Modified On:03/01/2023W/U Status:confirmed F41.8 Anxiety with depress ion Modified On:03/01/2023/U Status:confirmed M79.672 Left foot pain Modified On:08/28/2024W/U Status:confirmed M19.072 Primary osteoarthrit is, left ankle and foot Modified On:09/04/2024W/U Status:confirmed * Medical History: * Surgical History: [...] cigarettes a day do you smoke? 1 08-12 * Medications: T akingAbilify Ambien ARIPiprazole 10 MG Tablet 1 tablet Orally Once a day CeleXA Citalopram Hydrobromide 40 MG Tablet 0.5 tablet Orally Once a day Detrol Gabapentin Lansoprazole 30 MG Tablet Delayed Release Disintegrating 1 tablet Orally Once a day Meloxicam 15 MG Tablet 1 tablet Orally Once a day Prevacid Tolterodine Tartrate ER 4 MG Capsule Extended Release 24 Hour 1 capsule Orally Once a day Medication List reviewed and reconciled with the patientTaking Abilify Taking Ambien Taking ARIPiprazole 10 MG Tablet 1 tablet Orally Once a day Taking CeleXA Taking Citalopram Hydrobromide 40 MG Tablet 0.5 tablet Orally Once a day Taking Detrol Taking Gabapentin Taking Lansoprazole 30 MG Tablet Delayed Release Disintegrating 1 tablet Orally Once a day Taking Meloxicam 15 MG Tablet 1 tablet Orally Once a day Taking Prevacid Taking Tolterodine Tartrate ER 4 MG Capsule Extended Release 24 Hour 1 capsule Orally Once a day Medication List reviewed and reconciled with the patient * Allergies: P enicillin: rashno[Allergies Verified] Objective: * Vitals: H R:85/min, RR:16/min, Pain scale:21-10, Oxygen sat %:97%. * Examination: P odiatry Examination: SKIN: s kin intact, n o sign of infection. MUSCULOSKELETAL: M ild pain on direct palpation over the second tarsometatarsal joint over palpable hardware. Less amount of pain noted over the third tarsometatarsal joint. NEUROLOGICAL: l ight touch sensation intact, n egative tinel's sign. VASCULAR: P edal pulses palpable, C apillaryrefill is brisk to toe, M ild swelling. C T reviewed in my office which shows stable fixation fixating the second and third tarsometatarsal joint. There is no osseous bridging across the second tarsometatarsal joint with less than 1 cm gap. Third tarsometatarsal joint has partial and very little osseous bridging but all hardware without loosening or failure. There is degenerative changes across the fourth and fifth tarsometatarsal joint. Assessment: * Assessment: 1. P seudarthrosis after fusion or arthrodesis - M96.0 (Primary) 2 . P rimary osteoarthritis, left ankle and foot - M19.072 3 . P ain due to internal orthopedic prosthetic devices, implants and grafts, initial encounter - T84.84XA Plan: * Treatment: * Procedure Codes: * * Sign off status: Completed Visit Status: Odell CAN (Check Out) true * Provider: Miguel Hoff DPM, MS Date: 0 09/18/2024 Generated for Taina marina/Nhi/Josiasitting on: 0 02/19/2025 09:30 AM EDT History and Physical Notes * HPI (History of Present Illness) Category Sub-Category Detail Notes Category Not es General Pt has h/o left midfoot fusion DOS 03/10/2022. Pt reports hardware has been increasingly bothersome, would like to discuss having it removed. Pt has been taking meloxicam daily which helps tremendously however having GI pain since starting. 0/10 pain today. Here to review CT. Examination Category Sub-Category Detail Notes Category Not es Podiatry Examination SKIN: skin intact, no sign of infection CT re viewed in my office which shows stable fixation fixating the second and third tarsometatarsal joint. There is no osseous bridging across the second tarsometatarsal joint with less than 1 cm gap. Third tarsometatarsal joint has partial and very little osseous bridging but all hardware without loosening or failure. There is degenerative changes across the fourth and fifth tarsometatarsal joint MUSCULOSKELETAL: Mild pain on direct palpation over the second tarsometatarsal joint over palpable hardware. Less amount of pain noted over the third tarsometatarsal joint NEUROLOGICAL: light touch sensatio n intact, negative tinel's sign VASCULAR: Pedal pulses palpable, Capillary refill is brisk to toe, Mild swelling
--- OUTSIDE RECORDS SUMMARY | 2025-02-06 14:15 | XMS_ITS | Encounter Summary ---
Author Organization [employer] s tem Address [id number] [address] [place] [address] Care Team Providers Care Endoscopic Technician Name Role Phone No Pcp, No Pcp Primary Care Provider Unavailabl e Reason for Referral * Consultation (Routine) - Authorized Specialty Diagnoses / Procedures Referred By Contact Referred To Contact Urogynecology / Gynecology Diagnoses Cystocele with second degree uterine prolapse History of reconstructive repair of rectocele Urge urinary incontinence Leslye Muniz DO [address] [place] [address] Phone: tel:[phone] fax: Tania Asif MD [address], [address] [address] Phone: tel:[phone] fax:[phone] Referral ID Status Reason Start Date Expiration Date Visits Requested Visits Authorized [id number] Authorized Specialty Services Required 02/06/2025 02/06/2026 1 1 Reason for Visit * Reason Comments New Patient New Patient presents for evaluation of a possible rectocele. Encounter Details Date Type Department Care Team (Latest Contact Info) Description 02/06/2025 2:15 PM EDT Office Visit [facility]/Gynecolo gy [address] [place] [address] Leslye Muniz DO [address] [place] [address] Cystocele with second degree uterine prolapse (Primary [...] Care Everywhere. * Pelvic floor muscle exercises (French) documented in this encounter Progress Notes * [...] [facility] - U[facility]yn [address] [place] [address] Tania Asif MD [address] [place] [address] Scheduled Referrals Name Type Priority Associated Diagnoses Orde r Schedule [facility] - Urogynecology - [place], [place] Outpatient Referral Routine Cystocele with second [...] vaginitis documented in this encounter Care Teams Endoscopic Technician Relationship Specialty Start Date End Date No Pcp, [place] [address] PCP - General Family Medicine 11/21/18 documented as of this encounter
--- OUTSIDE RECORDS SUMMARY | 2025-02-19 09:30 | XMS_ITS | Encounter Summary ---
Author Organization [facility] Address [address] [place] [address] Care Team Providers Care Slaughterer Religious Ritual Name Role Phone Shaikh NITHIN Main Primary Care Provider [phone] Shaikh NITHIN Main Primary Care Provider [phone] Molina De Anda MD Primary Care Provider [phone] Valerie Groves HOOP MACHINE OPERATOR Unavailable [phone] Karime Dias [facility]- Unavailable [phone] Reason for Visit * Reason Comments Med Refill Encounter Details Date Type Department Care Team (Late st Contact Info) Description 10/16/2023 [facility] [address] [place] [address] Shaikh Main MD [address] [place] [address] Psychophysiological insomnia Social History Tobacco Use Types Packs/Day Years Used Date Smoking Tobacco: Every Day Cigarettes 1 39.6 Started: 1984 Smokeless Tobacco: Never Comments:Thinking about [...] How often do you attend chur or congregation services? Never 08/07/2023 Do you belong to any clubs o r organizations such as scientologist groups, unions, fraternal or athletic groups, or [...] Recorded Patient Health Questionnaire-2 Score 6 08/03/2023 [facility] [place] [facility] Occupat ional Health - Occupational Stress [...] Care Team (Late st Contact Info) Description 02/24/2025 3:00 PM EDT Office Visit [facility] [address] [facility] [address] [place] [address] [facility] [address] [facility] [address] [place] [address] 02/25/2025 11:30 AM EDT Office Visit [facility] [address] [place] [address] Pascale Arana NP [address] [place] [address] 03/06/2025 3:00 PM EDT Social Work [facility] [address] [place] [address] [place] [address] Rohan [place] LPC documented as of this encounter Goals Goal Patient Goal Type Associated Problems Recent Progress Patient-Stated? Author Help patient manage antidepressant medication Care Plan Patient on antidepressant monitoring plan No Shaikh Main MD documented as of this encounter Visit Diagnoses Diagnosis Psychophysiological insomnia Persistent disorder of initiating or maintaining sleep JESSIKA (generalized anxiety disorder) Generalized anxiety disorder Severe episode of recurrent major depressive disorder, without psychotic features (HCC) PTSD (post-traumatic stress disorder) Posttraumatic stress disorder Insomnia, unspecified type Sleep apnea, unspecified type documented in this encounter Additional Health Concerns Active Problems Noted Date Diagnosed Date Patient on antidepressant monitoring plan 2023 Assessment Noted Time PHQ-9 Depression Total Score: 23 024 4:27 PM EST documented as of this encounter Care Teams Slaughterer Religious Ritual Relationship Specialty Start Date End Date Shaikh Main MD PCP - General Internal Medicine 04/20/23 01/07/24 Shaikh Main MD [address] [place] [address] PCP - General Internal Medicine 01/08/24 02/20/24 Molina De Anda MD [address] [place] [address] PCP - General Family Medicine 02/21/24 Valerie Groves NP [address] [place] [address] Nurse Practitioner Family Medicine 02/21/24 Karime Dias [facility] [address] [address] Nurse Practitioner Behavioral Health 01/22/25 documented as of this encounter
--- OUTSIDE RECORDS SUMMARY | 2025-02-19 09:30 | XMS_ITS | Encounter Summary ---
Author Organization [facility] Address [address] [place] [address] Care Team Providers Care Construction Engineer Name Role Phone Molina De Anda MD Primary Care Provider [phone] Valerie Groves RESIDENTIAL CARE OFFICER Unavailable [phone] [facility] + [phone] Reason for Visit * Reason Onset Date Comments Error (VOID this visit) 02/17/2025 Encounter Details Date Type Department Care Team (Late st Contact Info) Description 02/17/2025 [facility]phone [facility] [address] [place] [address] Pascale Arana NP [address] [place] [address] Error (VOID this visit) Social History Tobacco Use Types Packs/Day Years Used Date Smoking Tobacco: Every Day Cigarettes 1 39.6 Started: 1985 Passive Smoke Exposure: Past Smokeless [...] How often do you attend chur or alevism services? Never 08/07/2023 Do you belong to any clubs o r organizations such as pentecostalism groups, unions, fraternal or athletic groups, or [...] Recorded Patient Health Questionnaire-2 Score 5 01/22/2025 [facility] - Occupational Stress Questionnaire Answer Date [...] Office Visit [facility] [address] [facility] [address] [place] [address] Karime Dias PMHNP- [address] [facility] [address] [place] [address] 02/25/2025 11:30 AM EDT Office Visit [facility] [address] [place] [address] Pascale Arana NP [address] [place] [address] 03/06/2025 3:00 PM EDT Social Work [facility] [address] [place] [address] [place] [address] Rohan [place] LPC documented as of this [...] documented as of this encounter Care Teams Construction Engineer Relationship Specialty Start Date End Date Molina De Anda MD [address] [place] [address] PCP - General Family Medicine 02/21/24 Valerie Groves NP [address] [place] [address] Nurse Practitioner Family Medicine 02/21/24 [facility] [address] [facility] [address] [place] [address] Nurse Practitioner Behavioral Health 01/22/25 documented as of this encounter
--- OUTSIDE RECORDS SUMMARY | 2025-02-19 09:31 | XMS_ITS | Encounter Summary ---
Author Organization [facility] Address [address] [place] [address] Care Team Providers Care Military Technology Manager Name Role Phone Molina De Anda MD Primary Care Provider [phone] Valerie Groves HIGH PRESSURE BOILER OPERATOR Unavailable [phone] Karime Dias PMHNP- Unavailable + [phone] Encounter Details Date Type Department Care Team (Late st Contact Info) Description 02/05/2025 Clinisync Result Encounter [facility] External Department Unsolicited Provider, Generic External Data Social History Tobacco Use Types Packs/Day Years [...] often do you attend chur ch or zoroastrian services? Never 08/07/2023 Do you belong to any clubs o r organizations such as anglican groups, unions, fraternal or athletic groups, or [...] Recorded Patient Health Questionnaire-2 Score 5 01/22/2025 [facility] - Occupational Stress Questionnaire Answer Date Recorded [...] Description 02/24/2025 3:00 PM EDT Office Visit [facility] [address] [facility] [address] [place] [phone] [facility] [address] [facility] [address] [place] [phone] 02/25/2025 11:30 AM EDT Office Visit [facility] [address] [place] [address] Pascale Arana, MARY JO [address] [place] [address] 03/06/2025 3:00 PM EDT Social Work [facility] [address] [facility] [address] [place] [address] Rohan Burns LPC documented as of this encounter Goals Goal Patient Goal Type Associated Problems Recent Progress Patient-Stated? Author Help patient manage antidepressant medication Care Plan Patient on antidepressant monitoring plan No Shaikh Main MD documented as of this encounter Procedures Procedure Name Priority Date/Time Associated Diagnosis Comments MR CERVICAL SPINE WO CONTRAST 02/05/2025 12:16 PM EDT documented in this encounter Results * MR cervical spine wo contrast (02/05/2025 12:16 PM EDT) Anatomical Region Laterality Modality Spine, C-spine Magnetic Resonan ce 02/05/2025 12:1 6 PM EDT Narrative 02/05/2025 12:18 [place] [address] Magnetic Resonance Report Signed Patient: TALIA RUTHERFORD MR#: [id number] : 1970 Acct:[id number] Age/Sex: 54 / F ADM Date: 02/04/25 Loc: MRI Attending Dr: Bandar Nguyễn M.D. Ordering Physician: Bandar Nguyễn M.D. Date of Service: 02/04/25 Procedure(s): MR cervical spine wo con Accession Number(s): [id number] cc: Pascale Arana NP; Bandar Nguyễn M.D. The [address] [address] Patient Name: TALIA RUTHERFORD MRN: [id number] date: 1970 Sex: F Assigned Patient Location: MRI Current Patient Location: Accession/Order Number: [id number] Exam Date: 02/05/2025 12:10 Report Date: 02/05/2025 12:16 At the request of: BANDAR NGUYỄN MD Procedure: MR cervical spine wo con EXAMINATION: MRI OF THE CERVICAL SPINE WITHOUT CONTRAST CLINICAL DATA: spinal stenosis, cervical region. TECHNIQUE: Multiecho imaging was performed in the sagittal and axial plane without contrast administration. FINDINGS: The craniocervical junction is maintained. Cervical vertebral heights and alignment and bone marrow signal is unremarkable. Mild multilevel intervertebral space narrowing C3-C7. Multilevel facet arthropathy. Cervical cord demonstrate normal signal and morphology. Prevertebral and paraspinal soft tissues are unremarkable. C2-C3: Broad-based bulge minor facet arthropathy. Canal neural foraminal pain. C3-C4: Broad-based disc bulge with uncovertebral spurring. Moderate right and mild left neural foraminal narrowing. Canal is patent. C4-C5: Broad-based disc bulge. Uncovertebral spurring greatest right. Moderate right and geqf-se-sgeonlfq left-sided neural foraminal narrowing. Mild canal narrowing. C5-6: Broad-based disc bulge with uncovertebral spurring, greatest left. Moderate right-sided moderate to severe left-sided neural foraminal narrowing. Mild central canal stenosis. C6-C7: Broad-based disc osteophyte complex with uncovertebral spurring. Eabj-gg-xfjbspnv right moderate severe left neural foraminal narrowing. Kbpl-hy-gcmzsyqc canal narrowing. C7-T1: Minimal vertebral hypertrophy. Moderate facet arthropathy. Canal and patent. Mild foraminal narrowing. MR/MR cervical spine wo con IMPRESSION: Overall multilevel degenerative changes with up to ghjc-th-tdwwjafq central canal narrowing. Multilevel foraminal encroachment as noted above. Impression dictated by: Mushtaq Antony M.D. 02/05/2025 12:16 PM Dictation Location: [place] [address] Electronically authenticated by: [id number] Y Date: 02/05/2025 12:16 Dictated By: Mushtaq Antony M.D. Signed By: 02/05/25 1218 DD/ 1216 TD/TT: Shellfish Processing Laborer: Procedure Note Radiology, Radiologist, MD - 02/05/2025 [place] [address] Magnetic Resonance Report Signed Patient: TALIA RUTHERFORD [facility]#: [id number] : 1970Acct:[id number] Age/Sex: 54 / FADM Date: 02/04/25 Loc: MRI Attending Dr: Bandar Nguyễn M.D. Ordering Physician: Bandar Nguyễn M.D. Date of Service: 02/04/25 Procedure(s): MR cervical spine wo con Accession Number(s): [id number] cc: Pascale Arana NP; Banadr Nguyễn M.D. [place] [id number] Patient Name: TALIA RUTHERFORD MRN: [id number] date: 1970 Sex: F Assigned Patient Location: MRI Current Patient Location: Accession/Order Number: [id number] Exam Date: 02/05/2025 12:10 Report Date: 02/05/2025 12:16 At the request of: BANDAR NGUYỄN MD Procedure: MR cervical spine wo con EXAMINATION: MRI OF THE CERVICAL SPINE WITHOUT CONTRAST CLINICAL DATA: spinal stenosis, cervical region. TECHNIQUE: Multiecho imaging was performed in the sagittal and axialplane without contrast administration. FINDINGS: The craniocervical junction is maintained. Cervical vertebral heights and alignment and bone marrow signal is unremarkable. Mild multilevel intervertebral space narrowing C3-C7. Multilevel facet arthropathy.Cervical cord demonstrate normal signal and morphology. Prevertebral andparaspinal soft tissues are unremarkable. C2-C3: Broad-based bulge minor facet arthropathy. Canal neural foraminal pain. C3-C4: Broad-based disc bulge with uncovertebral spurring. Moderate rightand mild left neural foraminal narrowing. Canal is patent. C4-C5: Broad-based disc bulge. Uncovertebral spurring greatest right. Moderate right and irct-ni-gbpvjyak left-sided neural foraminal narrowing. Mild canal narrowing. C5-6: Broad-based disc bulge with uncovertebral spurring, greatest left. Moderate right-sided moderate to severe left-sided neural foraminalnarrowing. Mild central canal stenosis. C6-C7: Broad-based disc osteophyte complex with uncovertebral spurring. Gcvd-is-cbaileho right moderate severe left neural foraminal narrowing. Hlkp-sj-mtjbjfoh canal narrowing. C7-T1: Minimal vertebral hypertrophy. Moderate facet arthropathy. [place] patent. Mild foraminal narrowing. MR/MR cervical spine wo con IMPRESSION: Overall multilevel degenerative changes with up to apen-zd-iflivnodkupabbd canal narrowing. Multilevel foraminal encroachment as noted above. Impression dictated by: Mushtaq Antony M.D. 02/05/2025 12:16 PM Dictation Location: [place] [address] Electronically authenticated by: [id number] Y Date: 2:16 Dictated By: Mushtaq Antony M.D. Signed By:02/05/25 1218 DD/ 1216 TD/TT: Shellfish Processing Laborer: us Generic External Data Provider IMG MRI PROCEDURE S Final Result documented in this encounter Visit Diagnoses Not on filedocumented in this encounter Additional Health Concerns Active Problems Noted Date Diagnosed Date Patient on antidepressant monitoring plan 2023 Assessment Noted Time PHQ-9 Depression Total Score: 21 025 9:29 AM EDT documented as of this encounter Care Teams Military Technology Manager Relationship Specialty Start Date End Date Molina De Anda MD [address] [place] [address] PCP - General Family Medicine 02/21/24 Valerie Groves NP [address] [place] [address] Nurse Practitioner Family Medicine 02/21/24 Karime Dias PMHNP- [address] [facility] [place] [address] Nurse Practitioner Behavioral Health 01/22/25 documented as of this encounter
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
--- OUTSIDE RECORDS SUMMARY | 2025-02-19 09:31 | XMS_ITS | Encounter Summary ---
Author Organization [facility] Address [address] [place] [address] Care Team Providers Care Workers' Compensation Claims Examiner Name Role Phone Molina De Anda MD Primary Care Provider [phone] Valerie Groves SPACE SYSTEMS OPERATIONS CRAFTSMAN Unavailable [phone] [facility] Un[facility] [phone] Encounter Details Date Type Department Care Team (Late st Contact Info) Description 11/18/2024 Orders Only [facility] [address] [place] [address] Pascale Arana NP [address] [place] [address] Social History Tobacco Use Types Packs/Day Years [...] How often do you attend chur or sabianism services? Never 08/07/2023 Do you belong to [...] Visit [facility] [address] [place] [address] [facility] [address] [place] [address] 02/25/2025 11:30 AM EDT Office Visit [facility] [address] [place] [address] Pascale Arana NP [address] [place] [address] 03/06/2025 3:00 PM EDT Social Work [facility] [address] [place] [address] [place] [address] Rohan Burns LPC documented as of this [...] (11/18/2024 2:41 PM EDT) us Pascale Arana SPACE SYSTEMS OPERATIONS CRAFTSMAN LAB CHG PERFORMABLES Final Resu lt documented in this encounter Visit Diagnoses Not on filedocumented in this encounter Additional Health Concerns Active Problems Noted Date Diagnosed Date Patient on antidepressant monitoring plan 2023 Assessment Noted Time PHQ-9 Depression Total Score: 23 024 4:27 PM EST documented as of this encounter Care Teams Workers' Compensation Claims Examiner Relationship Specialty Start Date End Date Molina De Anda MD [address] [place] [address] PCP - General Family Medicine 02/21/24 Valerie Groves NP [address] [place] [address] Nurse Practitioner Family Medicine 02/21/24 [facility] [address] [place] [address] [place] [address] Nurse Practitioner Behavioral Health 01/22/25 documented as of this encounter
--- OUTSIDE RECORDS SUMMARY | 2025-02-19 09:31 | XMS_ITS | Encounter Summary ---
Author Organization [facility] Address [address] [place] [address] Care Team Providers Care School Boat Driver Name Role Phone Shaikh NITHIN Main Primary Care Provider [phone] Shaikh NITHIN Main Primary Care Provider [phone] Molina De Anda MD Primary Care Provider [phone] Valerie Groves SALES REPRESENTATIVE GAS SERVICE Unavailable [phone] Karime Dias [facility]- Unavailable Encounter Details Date Type Department Care Team (Late st Contact Info) Description 11/20/2023 Orders Only [facility] [address] [place] [phone] Shaikh Main MD [address] [place] [address] Social History Tobacco Use Types Packs/Day Years [...] How often do you attend chur or spiritism services? Never 08/07/2023 Do you belong to [...] Recorded Patient Health Questionnaire-2 Score 0 11/13/2023 [facility] - [...] Office Visit [facility] [address] [place] [address] [facility] Di[facility] [address] [facility] [address] [place] [address] 02/25/2025 11:30 AM EDT Office Visit [facility] [address] [place] [address] Pascale Arana NP [address] [place] [address] 03/06/2025 3:00 PM EDT Social Work [facility] [address] [facility] [address] [place] [address] oRhan Burns LPC documented as of this encounter [...] documented as of this encounter Care Teams School Boat Driver Relationship Specialty Start Date End Date Shaikh Main MD PCP - General Internal Medicine 04/20/23 01/07/24 Shaikh Main MD [address] [place] [address] PCP - General Internal Medicine 01/08/24 02/20/24 Molina De Anda MD [address] [place] [address] PCP - General Family Medicine 02/21/24 Valerie Groves NP [address] [place] [address] Nurse Practitioner Family Medicine 02/21/24 Karime Dias [facility]- [address] [facility] [address] [place] [address] Nurse Practitioner Behavioral Health 01/22/25 documented as of this encounter
--- OUTSIDE RECORDS SUMMARY | 2025-02-19 09:31 | XMS_ITS | Encounter Summary ---
Author Organization [facility] Address [address] [place] [address] Care Team Providers Care Mortgage Processing Clerk Name Role Phone Molina De Anda MD Primary Care Provider [phone] Valerie Groves MESSAGE AND DELIVERY SERVICE PRICER Unavailable [phone] Karime Dias PMHNP- Unavailable + [phone] Encounter Details Date Type Department Care Team [...] often do you attend chur ch or zoroastrianism services? Never 08/07/2023 Do you belong to any clubs o r organizations such as buddhist groups, unions, fraternal or athletic groups, or [...] Patient Health Questionnaire-2 Score 5 01/22/2025 [facility]ational Stress Questionnaire Answer Date [...] [facility] [address] [facility] [address] [place] [phone] [facility] [address] [facility] [address] [place] [address] 02/25/2025 11:30 AM EDT Office Visit [facility] [address] [place] [address] Pascale Arana, MARY JO [address] [place] [address] 03/06/2025 3:00 PM EDT Social Work [facility] [address] [facility] [address] [place] [address] Rohan Burns LPC documented as of this encounter Goals Goal Patient Goal Type Associated Problems Recent Progress Patient-Stated? Author Help patient manage antidepressant medication Care Plan Patient on antidepressant monitoring plan Shaikh Morel MD documented as of this encounter Procedures Procedure Name Priority Date/Time Associated Diagnosis Comments MR LUMBAR SPINE WO CON 02/05/2025 2:18 PM EDT documented in this encounter Results * MR LUMBAR SPINE WO CON (02/05/2025 2:18 PM EDT) Anatomical Region Laterality Modality Other 02/05/2025 2:18 PM EDT Narrative 02/05/2025 2:21 [place] [address] Magnetic Resonance Report Signed Patient: TALIA RUTHERFORD MR#: [id number] : 1970 Acct:[id number] Age/Sex: 54 / F ADM Date: 02/04/25 Loc: MRI Attending Dr: Bandar Nguyễn M.D. Ordering Physician: Bandar Nguyễn M.D. Date of Service: 02/04/25 Procedure(s): MR lumbar spine wo con Accession Number(s): [id number] cc: Pascale Arana MESSAGE AND DELIVERY SERVICE PRICER; Bandar Nguyễn M.D. The [place] [id number] Patient Name: TALIA RUTHERFORD MRN: [id number] date: 1970 Sex: F Assigned Patient Location: MRI Current Patient Location: Accession/Order Number: [id number] Exam Date: 02/05/2025 12:16 Report Date: 02/05/2025 14:18 At the request of: BANDAR NGUYỄN MD Procedure: MR lumbar spine wo con MRI lumbar spine performed without contrast INDICATION: Spinal stenosis of lumbar region with neurogenic claudication COMPARISON: None FINDINGS: Lumbar vertebral heights, alignment and bone marrow signal is unremarkable. Mild levocurvature. Moderate intervertebral space narrowing L5-S1. Mild intervertebral space narrowing L4-5. Multilevel arthropathy notably L3-S1. Schmorl's node deformities identified L5-S1. Conus medullaris terminates normally at inferior plate of L1. Paraspinal soft tissues unremarkable. On T12-L1: Visualized sagittal images. No significant disease central canal or neural from narrowing identified . L1-2: Mild disc desiccation. No focal disc protrusion central canal or neural from narrowing. Mild to moderate facet arthropathy. L2-L3: Disc desiccation. Mild to moderate facet arthropathy. Canal and neural foramen are patent. L3-4: Broad-based disc bulge with central T2 hyperintense annular fissure. Moderate facet arthropathy. Otherwise the canal is patent. Right foramen is patent. Mild left foraminal narrowing. L4-5: Circumferential disc bulge with central T2 hyperintense annular fissure and minimal focal central extrusion. Moderate facet arthropathy. Mild canal narrowing. Mild neural from narrowing. L5-S1: Circumferential disc bulge with moderate facet arthropathy. Rost-it-dponnaoa right-sided and mild left-sided neural foraminal narrowing . 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 Impression dictated by: Mushtaq Antony M.D. 02/05/2025 2:18 PM Dictation Location: [place] [address] Electronically authenticated by: [id number] Y Date: 02/05/2025 14:18 Dictated By: Mushtaq Antony M.D. Signed By: 02/05/25 1421 DD/ 1418 TD/TT: Aix System Administrator: Procedure Note Radiology, Radiologist, MD - 02/05/2025 [place] [address] Magnetic Resonance Report Signed Patient: TALIA RUTHERFORD [facility]#: [id number] : 1970Acct:[id number] Age/Sex: 54 / FADM Date: 02/04/25 Loc: MRI Attending Dr: Bandar Nguyễn M.D. Ordering Physician: Bandar Nguyễn M.D. Date of Service: 02/04/25 Procedure(s): MR lumbar spine wo con Accession Number(s): [id number] cc: Pascale Arana MESSAGE AND DELIVERY SERVICE PRICER; Bandar Nguyễn M.D. The [place] [id number] Patient Name: TALIA RUTHERFORD MRN: [id number] date: 1970 Sex: F Assigned Patient Location: MRI Current Patient Location: Accession/Order Number: [id number] Exam Date: 02/05/2025 12:16 Report Date: 02/05/2025 14:18 At the request of: BANDAR NGUYỄN MD Procedure: MR lumbar spine wo con MRI lumbar spine performed without contrast INDICATION: Spinal stenosis of lumbar region with neurogenic claudication COMPARISON: None FINDINGS: Lumbar vertebral heights, alignment and bone marrow signal is unremarkable. Mild levocurvature. Moderate intervertebral spacenarrowing L5-S1. Mild intervertebral space narrowing L4-5. Multilevel arthropathy notably L3-S1. Schmorl's node deformities identified L5-S1. Conusmedullaris terminates normally at inferior plate of L1. Paraspinal soft tissues unremarkable. On T12-L1: Visualized sagittal images. No significant disease central canalor neural from narrowing identified . L1-2: Mild disc desiccation. No focal disc protrusion central canal orneural from narrowing. Mild to moderate facet arthropathy. L2-L3: Disc desiccation. Mild to moderate facet arthropathy. Canal and neural foramen are patent. L3-4: Broad-based disc bulge with central T2 hyperintense annular fissure. Moderate facet arthropathy. Otherwise the canal is patent. Right foramenis patent. Mild left foraminal narrowing. L4-5: Circumferential disc bulge with central T2 hyperintense annularfissure and minimal focal central extrusion. Moderate facet arthropathy. Mildcanal narrowing. Mild neural from narrowing. L5-S1: Circumferential disc bulge with moderate facet arthropathy. Awrk-jt-jwqgnqmj right-sided and mild left-sided neural foraminalnarrowing . 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 Impression dictated by: Mushtaq Antony M.D. 02/05/2025 2:18 PM Dictation Location: [place] [address] Electronically authenticated by: [id number] Y Date: 4:18 Dictated By: Mushtaq Antony M.D. Signed By:02/05/25 1421 DD/ 1418 TD/TT: Aix System Administrator: us Generic External Data Provider [facility] Final Result documented in this encounter Visit Diagnoses Not on filedocumented in this encounter Additional Health Concerns Active Problems Noted Date Diagnosed Date Patient on antidepressant monitoring plan 2023 Assessment Noted Time PHQ-9 Depression Total Score: 21 025 9:29 AM EDT documented as of this encounter Care Teams Mortgage Processing Clerk Relationship Specialty Start Date End Date Molina De Anda MD [address] [place] [address] PCP - General Family Medicine 02/21/24 Valerie Groves NP [address] [place] [address] Nurse Practitioner Family Medicine 02/21/24 [facility]as [facility] [address] [place] [address] [place] [address] Nurse Practitioner Behavioral Health 01/22/25 documented as of this encounter
--- OUTSIDE RECORDS SUMMARY | 2025-02-19 09:31 | XMS_ITS | Encounter Summary ---
Author Organization [employer] Address [id number] [address] [place] [address] Care Team Providers Care Photo Retoucher Name Role Phone No Pcp, No Pcp Primary Care Provider Unavailpedro e Encounter Details Date Type Department Care Team (Late st Contact Info) Description 02/13/2023 Telephone [facility] General [facility] [address] [place] [address] Segun Keene DO [address] [place] [address] Social History Tobacco Use Types [...] office visit;just set up for colonsocopy at [facility] for anemis. I don't need to see he agian. Saw her today!!! * Telephone Encounter - Alberta Millan - 02/13/2023 11:36 AM EDT Talia called the office to try to reschedule her appointment, I informed her that Dr. Jassi fraga her set up for a colonoscopy at [facility]. Told Talia that our surgery schedulerwill call her back to schedule that with her. * Telephone Encounter - SUGEY Loyd - 02/13/2023 11:36 AM EDT I called Talia and scheduled colonoscopy at [facility] for 03/08/23. The patient is coming in tomorrow 02/14/23 to sign papers and go over bowel prep. I will send Dr. Keene a message to put in orders for this procedure and email everything over to Anh at the [facility]. documented in this encounter Plan of Treatment Upcoming Encounters Date Type Department Care Team (Late st Contact Info) Description 04/02/2025 3:00 PM EDT Office Visit [facility] - [place] [address] [place] [address] Tania Asif MD [address] [place] [address] documented as of this encounter Visit Diagnoses Not on filedocumented in this encounter Care Teams Photo Retoucher Relationship Specialty Start Date End Date No Pcp, [place] [address] PCP - General Family Medicine 11/21/18 documented as of this encounter
--- OUTSIDE RECORDS SUMMARY | 2025-02-19 09:31 | XMS_ITS | Encounter Summary ---
Author Organization [facility] Address [address] [place] [address] Care Team Providers Care Shelf Drier Operator Name Role Phone Shaikh NITHIN Main Primary Care Provider [phone] Shaikh NITHIN Main Primary Care Provider [phone] Molina De Anda MD Primary Care Provider [phone] Valerie Groves PAYMASTER OF [employer]SES Unavailable [phone] Karime Dias [facility]- Unavailable Encounter Details Date Type Department Care Team (Late st Contact Info) Description 08/03/2023 Orders Only [facility] [address] [place] [address] Shaikh Main MD [address] [place] [address] Social History Tobacco Use Types Packs/Day Years [...] any clubs o r organizations such as evangelical groups, unions, fraternal or athletic groups, or [...] Recorded Patient Health Questionnaire-2 Score 6 08/03/2023 [facility] of Occupat ional Health - Occupational Stress [...] Nearly every day 08/03/2023 4:27 PM Neema Huziar M A Poor appetite or overeating Nearly [...] Visit [facility] [address] [facility] [address] [place] [address] Karime Dias [facility] [address] [facility] [address] [place] [address] 02/25/2025 11:30 AM EDT Office Visit [facility] [address] [place] [address] Pascale Arana NP [address] [place] [address] 03/06/2025 3:00 PM EDT Social Work [facility] [address] [place] [address] [place] [address] Rohan Burns LPC documented as of this [...] documented as of this encounter Care Teams Shelf Drier Operator Relationship Specialty Start Date End Date Shaikh Main MD PCP - General Internal Medicine 04/20/23 01/07/24 Shaikh Main MD [address] [place] [address] PCP - General Internal Medicine 01/08/24 02/20/24 Molina De Anda MD [address] [place] [address] PCP - General Family Medicine 02/21/24 Valerie Groves NP [address] [place] [address] Nurse Practitioner Family Medicine 02/21/24 Karime Dias, PMHNP- [address] [address] Nurse Practitioner Behavioral Health 01/22/25 documented as of this encounter
--- OUTSIDE RECORDS SUMMARY | 2025-02-19 09:31 | XMS_ITS | Encounter Summary ---
Author Organization [facility] Address [address] [place] [address] Care Team Providers Care Hand Polisher Name Role Phone Molina De Anda MD Primary Care Provider [phone] Valerie Groves SWING MANAGER Unavailable [phone] [facility] + [phone] Encounter Details Date Type Department Care Team (Late st Contact Info) Description 01/06/2025 [facility] [address] [place] [address] Pascale Arana NP [address] [place] [address] Social History Tobacco Use Types Packs/Day Years [...] How often do you attend chur or christianity services? Never 08/07/2023 Do you belong to any clubs o r organizations such as rastafari groups, unions, fraternal or athletic groups, or [...] Recorded Patient Health Questionnaire-2 Score 0 04/10/2024 [facility] of Occupat ional Health - Occupational [...] [facility] [address] [facility] [address] [place] [address] [facility] [address] [facility] [address] [place] [address] 02/25/2025 11:30 AM EDT Office Visit [facility] [address] [place] [address] Pascale Arana NP [address] [place] [address] 03/06/2025 3:00 PM EDT Social Work [facility] [address] [place] [address] [place] [address] Rohan Burns LPC documented as of this [...] documented as of this encounter Care Teams Hand Polisher Relationship Specialty Start Date End Date Molina De Anda MD [address] [place] [address] PCP - General Family Medicine 02/21/24 Valerie Groves NP [address] [place] [address] Nurse Practitioner Family Medicine 02/21/24 [facility] [address] [place] [address] [place] [address] Nurse Practitioner Behavioral Health 01/22/25 documented as of this encounter
--- OUTSIDE RECORDS SUMMARY | 2025-02-19 09:31 | XMS_ITS | Encounter Summary ---
Author Organization [facility] Address [address] [place] [address] Care Team Providers Care Business Center Attendant Name Role Phone Shaikh NITHIN Main Primary Care Provider [phone] Shaikh NITHIN Main Primary Care Provider [phone] Molina De Anda MD Primary Care Provider [phone] Valerie Groves THIRD HELPER Unavailable [phone] Karmie Dias [facility]- Unavailable Encounter Details Date Type Department Care Team (Late st Contact Info) Description 08/07/2023 Orders Only [facility] [address] [place] [address] Shaikh Main MD [address] [place] [address] Social History Tobacco Use Types Packs/Day Years [...] How often do you attend chur or shinto services? Never 08/07/2023 Do you belong to any clubs o r organizations such as episcopalian groups, unions, fraternal or athletic groups, or [...] Recorded Patient Health Questionnaire-2 Score 6 08/03/2023 [facility] of Occupat ional Health - Occupational Stress [...] [facility] [address] [facility] [address] [place] [address] Karime Dias [facility] [address] [place] [address] [place] [address] 02/25/2025 11:30 AM EDT Office Visit [facility] [address] [place] [address] Pascale Arana, MARY JO [address] [place] [address] 03/06/2025 3:00 PM EDT Social Work [facility] [address] [facility] [address] [place] [address] Rohan Burns LPC documented as of this [...] documented as of this encounter Care Teams Business Center Attendant Relationship Specialty Start Date End Date Shaikh Main MD PCP - General Internal Medicine 04/20/23 01/07/24 Shaikh Main MD [address] [place] [address] PCP - General Internal Medicine 01/08/24 02/20/24 Molina De Anda MD [address] [place] [address] PCP - General Family Medicine 02/21/24 Valerie Groves NP [address] [place] [address] Nurse Practitioner Family Medicine 02/21/24 Karime Dias PMHNP- [address] [place] [address] [place] [address] Nurse Practitioner Behavioral Health 01/22/25 documented as of this encounter
--- OUTSIDE RECORDS SUMMARY | 2025-02-19 09:31 | XMS_ITS | Encounter Summary ---
Author Organization [facility] Address [address] [place] [address] Care Team Providers Care Notch Machine Operator Name Role Phone Molina De Anda MD Primary Care Provider [phone] Valerie Groves DIRECTOR ENGINEERING Unavailable [phone] Karime Dias [facility]- Unavailable + [phone] Reason for Visit * Reason Comments Med Refill Encounter Details Date Type Department Care Team (Late st Contact Info) Description 02/06/2025 Refill [facility] [address] [place] [address] Pascale Arana NP [address] [place] [address] URTI (acute upper respiratory infection); Non-recurrent acute [...] Recorded Patient Health Questionnaire-2 Score 5 01/22/2025 [facility] of Occupat ional Health - Occupational Stress [...] Visit [facility] [address] [facility] [address] [place] [address] [facility] [address] [facility] [address] [place] [address] 02/25/2025 11:30 AM EDT Office Visit [facility] [address] [place] [address] Pascale Arana, MARY JO [address] [place] [address] 03/06/2025 3:00 PM EDT Social Work [facility] [address] [facility] [address] [place] [address] Rohan Burns LPC documented as of this [...] ears without spontaneous rupture of tympanic membranes JESSIKA (generalized anxiety disorder) Generalized anxiety disorder [...] documented as of this encounter Care Teams Notch Machine Operator Relationship Specialty Start Date End Date Molina De Anda MD [address] [place] [address] PCP - General Family Medicine 02/21/24 Valerie Groves NP [address] [place] [address] Nurse Practitioner Family Medicine 02/21/24 [facility] [address] [facility] [address] [place] [address] Nurse Practitioner Behavioral Health 01/22/25 documented as of this encounter
--- OUTSIDE RECORDS SUMMARY | 2025-02-19 09:31 | XMS_ITS | Clinical Summary ---
Author Organization [facility] Address [address] [place] [address] Care Team Providers Care Email Campaign Specialist Name Role Phone Shaikh NITHIN Main Primary Care Provider [phone] Allergies Active Allergy Reactions Criticality Noted Date [...] complete this topic Insurance [employer] Care Teams Email Campaign Specialist Relationship Specialty Start Date End Date Shaikh Main MD PCP - General Family Medicine 04/07/23
--- OUTSIDE RECORDS SUMMARY | 2025-02-19 09:31 | XMS_ITS | Clinical Summary ---
Author Organization [employer] Address [facility] [id number] [address] [place] [address] Care Team Providers Care Geothermal Plant Manager Name Role Phone No Pcp, No Pcp Primary Care Provider Unavailabl e Allergies Active Allergy Reactions Criticality Noted Date Comments Penicillins Hives 02/08/2023 Medications sod sulf-pot chloride-mag sulf 1.479-0.188- 0.225 gram tablet See instructional sheet given by office. Patient was given a [employer] voucher to use, this is not to [...] a day as needed. 01/21/20 25 Active fexofenadine (HUNG) 180 mg tablet Take 1 tablet (180 mg total) by mouth in the morning. 10/03/19 25 Active fluticasone propionate (FLONASE) 50 mcg/actuation nasal spray Administer 2 sprays into each nostril in the morning. 11/19/19 25 Active gabapentin (NEURONTIN) 300 mg capsule Take 1 capsule (300 mg total) by mouth 3 (three) times a day. 11/19/19 25 Active lansoprazole (PREVACID) 30 mg capsule Take 1 capsule (30 mg total) by mouth every morning before breakfast. Active tolterodine LA (DETROL LA) 4 mg 24 hr capsule Take 1 capsule (4 mg total) by mouth in the morning. 12/22/19 Active zolpidem (AMBIEN) 10 mg tablet Take 1 tablet (10 mg total) by mouth daily as needed. 11/19/19 25 Active estradioL (ESTRACE) 0.01 % (0.1 mg/gram) vaginal creamIndications:C ystocele with second degree uterine prolapse,History of reconstructive repair of rectocele,Urge urinary incontinence Apply pea sized amount ( 1.5 g) to vaginal introitus nightly for 4 weeks then 1-2 times per week thereafte 42.5 g 2 02/07/20 25 Active DULoxetine (CYMBALTA) 30 mg capsule Take 1 capsule (30 mg total) by mouth in the morning. 11/20/19 025 DULoxetine (CYMBALTA) 60 mg capsule Take 1 capsule (60 mg total) by mouth in the morning. 11/20/19 025 Active Problems No known active problems Encounters Date Type Department Care Team Description 02/06/2025 2:15 PM EDT Office Visit [facility] [address] [place] [address] Leslye Muniz, Cystocele with second [...] [facility] [place] [address] [place] [place] [address] Tania Asif MD [address] [facility] [address] [place] [address] Health Maintenance Due Date Last Done Comments Tobacco Counseling 1971 Depression Screening 1983 Adult BMI Follow Up Plan 1989 DTaP,Tdap and Td Vaccines (1 - Tdap) 1990 Pap Smear 1992 Zoster (Shingles) Vaccine (1 of 2) 2021 Influenza Vaccine 03/24/2025 Adult BMI Screening 02/06/2026 02/06/2025 Tobacco Screening 02/06/2026 02/06/2025 Medical Devices Not on file Insurance [employer] Care Teams Geothermal Plant Manager Relationship Specialty Start Date End Date No Pcp, No Pcp [facility] [place] [address] PCP - General Family Medicine 11/21/18
--- OUTSIDE RECORDS SUMMARY | 2025-02-19 09:31 | XMS_ITS | Encounter Summary ---
Author Organization [facility] Address [address] [place] [address] Care Team Providers Care Site Operations Manager Name Role Phone Shaikh NITHIN Main Primary Care Provider [phone] Shaikh NITHIN Main Primary Care Provider [phone] Molina De Anda MD Primary Care Provider [phone] Valerie Groves PRODUCTION SUPPORT DEVELOPER Unavailable [phone] Karime Dias [facility]- Unavailable Encounter Details Date Type Department Care Team (Late st Contact Info) Description 08/02/2023 Orders Only [facility] [address] [place] [address] Shaikh Main MD [address] [place] [address] Social History Tobacco Use Types Packs/Day Years [...] week 07/03/2023 How often do you attend [facility] or jain services? Patient declined 07/03/2023 Do you belong [...] Recorded Patient Health Questionnaire-2 Score 6 08/03/2023 [facility] of Occupat ional Health - Occupational Stress [...] slept in a residential (including now)? No 07/03/2023 Comments Unknown Sex [...] Office Visit [facility] [address] [facility] [address] [place] [address] Karime Dias [facility]- [address] [facility] [address] [place] [address] 02/25/2025 11:30 AM EDT Office Visit [facility] [address] [place] [address] Pascale Arana NP [address] [place] [address] 03/06/2025 3:00 PM EDT Social Work [facility] [address] [place] [address] [place] [address] Rohan Burns LPC documented as of this encounter Procedures Procedure Name Priority Date/Time Associated Diagnosis Comments MISCELLANEOUS LAB TEST Routine 07/28/2023 1:49 PM EST documented in this encounter Results * - Miscellaneous Test (07/28/2023 1:49 PM EST) us Shaikh Etelvina [facility] BLOOD ORDERABLES Final Resu lt documented in this encounter Visit Diagnoses Not on filedocumented in this encounter Care Teams Site Operations Manager Relationship Specialty Start Date End Date Shaikh Main MD PCP - General Internal Medicine 04/20/23 01/07/24 Shaikh Main MD [address] [place] [address] PCP - General Internal Medicine 01/08/24 02/20/24 Molina De Anda MD [address] [place] [address] PCP - General Family Medicine 02/21/24 Valerie Groves, MARY JO [address] [place] [address] Nurse Practitioner Family Medicine 02/21/24 Karime Dias [facility]- [address] [place] [address] [place] [address] Nurse Practitioner Behavioral Health 01/22/25 documented as of this encounter
--- OUTSIDE RECORDS SUMMARY | 2025-02-19 09:31 | XMS_ITS | Patient Health Record ---
Author Organization [facility] [place] Address [address] [place] [address] Care Team Providers Care Cyber Forensic Specialist Name Role Phone None, Unknown or Primary Care Provider Unavailab Tawana Lee [phone] Allergies Allergen (clinical drug ingredient) Drug/Non Drug Allergy documented on EMR Reaction Allergy Type Onset Date Status Penicillin rash Drug Allergy Active Results Component Value Reference Range Notes XR foot LT min 3V (Not yet r eviewed by provider) Interpretation: Performing Lab: Notes/Report: Source Facility: [place] [address] XRay Report Signed Patient: KALYN RUTHERFORD MR#: [id number] : 1970 Acct:[id number] Age/Sex: 54 / F ADM Date: 09/04/24 Loc: EC Attending Dr: Tawana Hoff D.P.M. Ordering Physician: Tawana Hoff D.P.M. Date of Service: 09/04/24 Procedure(s): XR foot LT min 3V Accession Number(s): [id number] cc: NASH LAMAR Peter D.P.M. [facility] [place] [address] Patient Name: KALYN RUTHERFORD MRN: [id number] date: 1970 Sex: F Assigned Patient Location: EC Current Patient Location: Accession/Order Number: [id number] Exam Date: 09/04/2024 15:53 Report Date: 09/05/2024 [...] Signed By: 09/05/24 1019 DD/ 1016 TD/TT: Rn Radiology: [place] [address] XRay Report Signed Patient: MARTY RUTHERFORD MR#: [id number] : 1970 Acct:[id number] Age/Sex: 54 / F ADM Date: 09/04/24 Loc: EC Attending Dr: Tawana Hoff D.P.M. Ordering Physician: Tawana Hoff D.P.M. Date of Service: 09/04/24 Procedure(s): XR foot LT min 3V Accession Number(s): [id number] cc: PAUL LAMAR; Tawana Hoff D.P.M. [facility] [place] [id number] Patient Name: KALYN RUTHERFORD MRN: [id number] date: 1970 Sex: F Assigned Patient Location: Current Patient Location: Accession/Order Numb er: [id number] Exam Date: 09/04/2024 15:53 Report Date: 09/05/2024 10:16 At the request of: TAWANA HOFF Procedure: XR foot LT min 3V PROCEDURE: XR foot LT min 3V HISTORY: LEFT FOOT PAIN COMPARISON: XR foot left 05/31/2022 . 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 Ordering Physician: Tawana Hoff D.P.M. Date of Service: 09/09/24 Procedure(s): CT foot LT wo con Accession Number(s): [id number] cc: ANGEL LUIS LAMAR [place] [address] Patient Name: KALYN RUTHERFORD MRN: [id number] date: 1970 Sex: F Assigned Patient Location: CT Current Patient Location: CT Accession/Order Number: [id number] Exam Date: 09/09/2024 15:56 Report Date: 09/09/2024 [...] M.D. Signed By: 09/09/241741 DD/ 38 TD/TT: Rn Radiology: [place] [address] CT Scan Report Signed Patient: MARTY RUTHERFORD MR#: [id number] : 1970 Acct:[id number] Age/Sex: 54 / F ADM Date: 09/09/24 Loc: CT Attending Dr: Tawana Hoff D.P.M. Ordering Physician: Tawana Hoff D.P.M. Date of Service: 09/09/24 Procedure(s): CT foot LT wo con Accession Number(s): [id number] cc: ANGEL LUIS LAMAR [place] [address] Patient Name: KALYN RUTHERFORD MRN: [id number] date: 1970 Sex: F Assigned Patient Location: CT Current Patient Location: CT Accession/Order Numb er: [id number] Exam Date: 09/09/2024 15:56 Report Date: 09/09/2024 [...] M.D. Signed By: 09/09/241741 DD/ 38 TD/TT: Rn Radiology: Reason For Referral No Information Medications Medication [...] Problem Status W/U Status Risk Notes Problem [id number] Primary osteoarthritis , left ankle and foot (M19.072) Active confirmed Problem Gastroesophageal reflux disease (179485434) GERD (gastroesophag eal reflux disease) (K21.9) Active confirmed Problem Pain in left foot (591719279413534) Left foot pain (M79.672) Active confirmed Problem Anxiety depression (508586596) Anxiety with depression (F41.8) Active confirmed Vital Signs Heart Rate 85 /min 09/18/2024 Respiratory Rate 16 /min 09/18/2024 Oximetry 97 % 09/18/2024 Encounters Encounter Location Date Provider Diagnosis [facility] [address] [place] [address] [place] [address] 09/04/2024 Tawana Hoff [facility] [address] [place] [address] [place] [address] 09/04/2024 Tawana Hoff Pain due to internal orthopedic prosthetic devices, implants and grafts, initial encounter T84.84XA ; Primary osteoarthritis, left ankle and foot M19.072 and Left foot pain M79.672 [facility] [address] [place] [address] [place] [address] 09/18/2024 Tawana Hoff Pseudarthrosis after fusion or [...] Start Date Coverage End Date [employer] [facility] [address] [place] [address] [id number] Kalyn Rutherford Self - patient is the insured Medical (General) History Medical History History ICD Code GERD (gastroesophageal reflux disease) K 21.9 Anxiety F41.9 Arthritis M19.90 Nicotine dependence F17.200 Bipolar depression F31.9 Overactive bladder N32.81 Peripheral arterial disease I73.9 Surgical History Surgery Date(Month/Year) cholecystectomy tubal ligation gastric bypass 08/2019 posterior colporrhaphy repair, enterocel e repair 02/15/2021
--- OUTSIDE RECORDS SUMMARY | 2025-02-19 09:31 | XMS_ITS | Encounter Summary ---
Author Organization [facility] Address [address] [place] [address] Care Team Providers Care Enamel Burner Name Role Phone Molina De Anda MD Primary Care Provider [phone] Valerie Groves CLAM PICKER Unavailable [phone] Karime Dias [facility]- Unavailable + [phone] Reason for Visit * Reason Comments Med Refill Encounter Details Date Type Department Care Team (Late st Contact Info) Description 02/11/2025 Refill [facility] [address] [place] [address] Pascale Arana NP [address] [place] [address] UTI (urinary tract infection), uncomplicated; Class 1 obesity due to excess calories without serious comorbidity in adult, unspecified BMI; BMI 32.0-32.9,adult Social History Tobacco Use Types Packs/Day Years [...] How often do you attend chur or restoration services? Never 08/07/2023 Do you belong to [...] Recorded Patient Health Questionnaire-2 Score 5 01/22/2025 [facility] of Occupat ional Health - Occupational Stress [...] place to sleep or slept in a custodial (including now)? No 08/07/2023 Comments Unknown Sex [...] Office Visit [facility] [address] [facility] [address] [place] [address] Karime Dias [facility] 112 [facility] [address] [place] [address] 02/25/2025 11:30 AM EDT Office Visit [facility] [address] [place] [address] Pascale Arana NP [address] [place] [address] 03/06/2025 3:00 PM EDT Social Work [facility] [address] [facility] [place] [address] Rohan Burns LPC documented as of this encounter Goals Goal Patient Goal Type Associated Problems Recent Progress Patient-Stated? Author Help patient manage antidepressant medication Care Plan Patient on antidepressant monitoring plan No Shaikh Main MD documented as of this encounter Visit Diagnoses Diagnosis UTI (urinary tract infection), uncomplicated Urinary tract infection, site not specified Class 1 obesity due to excess calories without serious comorbidity in adult, unspecified BMI BMI 32.0-32.9,adult JESSIKA (generalized anxiety disorder) Generalized anxiety disorder [...] documented as of this encounter Care Teams Enamel Burner Relationship Specialty Start Date End Date Molina De Anda MD [address] [place] [address] PCP - General Family Medicine 02/21/24 Valerie Groves NP [address] [place] [address] Nurse Practitioner Family Medicine 02/21/24 Karime Dias [facility] 112 [facility] [address] [place] [address] Nurse Practitioner Behavioral Health 01/22/25 documented as of this encounter
--- OUTSIDE RECORDS SUMMARY | 2025-02-19 09:31 | XMS_ITS | Encounter Summary ---
Author Organization [facility] Address [address] [place] [address] Care Team Providers Care Cytogenetic Technologist Name Role Phone Molina De Anda MD Primary Care Provider [phone] Valerie Groves NEGATIVE CHECKER Unavailable [phone] Karime Dias PMHNP- Unavailable + [phone] Encounter Details Date Type Department Care Team (Late Contact Info) Description 11/28/2024 Results Follow-Up [facility] [address] [place] [address] Social History Tobacco Use Types Packs/Day Years [...] often do you attend chur ch or jain services? Never 08/07/2023 Do you [...] Recorded Patient Health Questionnaire-2 Score 0 04/10/2024 [facility] Questionnaire Answer Date [...] [facility] [address] [facility] [address] [place] [address] Karime Di[facility] [address] [facility] [address] [place] [address] 02/25/2025 11:30 AM EDT Office Visit [facility] [address] [place] [address] Pascale Arana NP [address] [place] [address] 03/06/2025 3:00 PM EDT Social Work [facility] [address] [facility] [address] [place] [address] Rohan Burns LPC documented as of this [...] documented as of this encounter Care Teams Cytogenetic Technologist Relationship Specialty Start Date End Date Molina De Anda MD [address] [place] [address] PCP - General Family Medicine 02/21/24 Valerie Groves NP [address] [place] [address] Nurse Practitioner Family Medicine 02/21/24 Karime Dias PMHNP- [address] [address] [place] [address] Nurse Practitioner Behavioral Health 01/22/25 documented as of this encounter
--- OUTSIDE RECORDS SUMMARY | 2025-02-19 09:31 | XMS_ITS | Encounter Summary ---
Author Organization [facility] Address [address] [place] [address] Care Team Providers Care Freelance Photographer Name Role Phone Molina De Anda MD Primary Care Provider [phone] Valerie Groves SPA TECHNICIAN Unavailable [phone] Karime Dias HNP- Unavailable [phone] Encounter Details Date Type Department Care Team (Late st Contact Info) Description 02/29/2024 Orders Only [facility] [address] [place] [address] Valerie Groves NP Social History Tobacco Use [...] How often do you attend chur or episcopal services? Never 08/07/2023 Do you belong to any clubs o r organizations such as mormonism groups, unions, fraternal or athletic groups, or [...] Recorded Patient Health Questionnaire-2 Score 0 02/28/2024 [facility] Questionnaire Answer [...] place to sleep or slept in a half-way (including now)? No 08/07/2023 Comments Unknown Sex [...] [facility] [address] [facility] [address] [place] [address] Karime Dias [facility] [address] [facility] [address] [place] [address] 02/25/2025 11:30 AM EDT Office Visit [facility] [address] [place] [address] Pascale Arana NP [address] [place] [address] 03/06/2025 3:00 PM EDT Social Work [facility] [address] [facility] [address] [place] [address] Rohan Burns LPC documented as of this [...] Laterality Modality Radiographic Maeve ging Valerie Groves SPA TECHNICIAN IMG XR PROCEDURES Final Result documented in this encounter Visit Diagnoses Not on filedocumented in this encounter Additional Health Concerns Active Problems Noted Date Diagnosed Date Patient on antidepressant monitoring plan 2023 Assessment Noted Time PHQ-9 Depression Total Score: 23 024 4:27 PM EST documented as of this encounter Care Teams Freelance Photographer Relationship Specialty Start Date End Date Molina De Anda MD [address] [place] [address] PCP - General Family Medicine 02/21/24 Valerie Groves NP [address] [place] [address] Nurse Practitioner Family Medicine 02/21/24 Karime Dias [facility] [address] [address] [place] [address] Nurse Practitioner Behavioral Health 01/22/25 documented as of this encounter
--- OUTSIDE RECORDS SUMMARY | 2025-02-19 09:31 | XMS_ITS | Encounter Summary ---
Author Organization [facility] Address [address] [place] [address] Care Team Providers Care Food Expeditor Name Role Phone Molina De Anda MD Primary Care Provider [phone] Valerie Groves PLATINUM AND PALLADIUM KETTLE TENDER Unavailable [phone] Kar[facility] + [phone] Encounter Details Date Type Department Care Team (Late st Contact Info) Description 01/06/2025 Abstract [facility] [address] [place] [address] Pascale Arana NP [address] [place] [address] Social History Tobacco Use Types Packs/Day Years [...] any clubs o r organizations such as anabaptism groups, unions, fraternal or athletic groups, or [...] Recorded Patient Health Questionnaire-2 Score 0 04/10/2024 [facility] of Occupat ional Health - [...] [facility] [address] [facility] [address] [place] [address] [facility] Di[facility] [address] [facility] [address] [place] [address] 02/25/2025 11:30 AM EDT Office Visit [facility] [address] [place] [address] Pascale Arana NP [address] [place] [address] 03/06/2025 3:00 PM EDT Social Work [facility] [address] [place] [address] [place] [address] Rohan Burns LPC documented as of this [...] documented as of this encounter Care Teams Food Expeditor Relationship Specialty Start Date End Date Molina De Anda MD [address] [place] [address] PCP - General Family Medicine 02/21/24 Valerie Groves NP [address] [place] [address] Nurse Practitioner Family Medicine 02/21/24 Karime Dias [facility] [address] [place] [address] [place] [address] Nurse Practitioner Behavioral Health 01/22/25 documented as of this encounter
--- OUTSIDE RECORDS SUMMARY | 2025-02-19 09:31 | XMS_ITS | Encounter Summary ---
Author Organization [facility] Address [address] [place] [address] Care Team Providers Care Granulating Blender Name Role Phone Molina De Anda MD Primary Care Provider [phone] Valerie Groves DIRECTOR MEDICAID Unavailable [phone] Karime Dias HNP- Unavailable + [phone] Reason for Visit * Reason Onset Date Comments Med Refill 11/18/2024 Encounter Details Date Type Department Care Team (Late st Contact Info) Description 11/18/2024 Refill [facility] [address] [place] [address] Molina De Anda MD [address] [place] [address] Plantar fasciitis of right foot (Primary Dx) [...] Recorded Patient Health Questionnaire-2 Score 0 04/10/2024 [facility] of Occupat ionmt Health - Occupational Stress Questionnaire Answer Date [...] [facility] [address] [facility] [address] [place] [address] Karime Dias HNP- [address] [facility] [address] [place] [address] 02/25/2025 11:30 AM EDT Office Visit [facility] [address] [place] [address] Pascale Arana NP [address] [place] [address] 03/06/2025 3:00 PM EDT Social Work [facility] [address] [facility] [address] [place] [address] Rohan Burns LPC documented as of this encounter Goals Goal Patient Goal Type Associated Problems Recent Progress Patient-Stated? Author Help patient manage antidepressant medication Care Plan Patient on antidepressant monitoring plan No Shaikh Main MD documented as of this encounter Visit Diagnoses Diagnosis Plantar fasciitis of right foot- Primary JESSIKA (generalized anxiety disorder) Generalized anxiety disorder [...] documented as of this encounter Care Teams Granulating Blender Relationship Specialty Start Date End Date Molina De Anda MD [address] [place] [address] PCP - General Family Medicine 02/21/24 Valerie Groves NP [address] [place] [address] Nurse Practitioner Family Medicine 02/21/24 Karime Dias [facility] [address] [facility] [address] [place] [address] Nurse Practitioner Behavioral Health 01/22/25 documented as of this encounter
--- OUTSIDE RECORDS SUMMARY | 2025-02-19 09:31 | XMS_ITS | Encounter Summary ---
Author Organization [facility] Address [address] [place] [address] Care Team Providers Care Long Goods Drier Name Role Phone Molina De Anda MD Primary Care Provider [phone] Valerie Groves CHEMICAL ETCH OPERATOR Unavailable [phone] Kar[facility] Dias [facility] Un[facility] [phone] Encounter Details Date Type Department Care Team (Late st Contact Info) Description 01/22/2025 Orders Only [facility] 112 [facility] [address] [place] [address] Karime Dias [facility]- [address] [facility] [address] [place] [address] Social History Tobacco Use Types Packs/Day [...] Recorded Patient Health Questionnaire-2 Score 5 01/22/2025 [facility] of Occupat ionct Health - Occupational Stress [...] or control worrying 3 01/22/2025 9:30 AM EDKarime Tsai PMHNP-BC Worrying too much about different things 3 01/22/2025 9:30 AM Karime Norris PMHNP-TWIN Trouble relaxing 3 01/22/2025 9:30 AM EDKarime Ragland PMHNP-BC Being so restless that it is hard to sit still 2 01/22/2025 9:30 AM Karime Norris PMHNP-BC Becoming easily annoyed or irritable 3 01/22/2025 9:30 AM EDKarime Tsai PMHNP-BC Feeling afraid as if something awful might happen 2 01/22/2025 9:30 AM Karime Norris PMHNP-BC JESSIKA-7 Total Score 18 01/22/2025 9:30 AM Karime Norris PMHNP-TWIN * Over the past 2 [...] day 01/22/2025 9:29 AM Karime Norris PMHNP-TWIN Trouble concentrating on things, such as reading [...] [facility] [address] [facility] [address] [place] [address] Karime Dias PMHNP-BC [address] [place] [address] [place] [address] 02/25/2025 11:30 AM EDT Office Visit [facility] [address] [place] [address] Pascale Arana, MARY JO [address] [place] [address] 03/06/2025 3:00 PM EDT Social Work [facility] [address] [facility] [address] [place] [address] Rohan Burns LPC documented as of this [...] documented as of this encounter Care Teams Long Goods Drier Relationship Specialty Start Date End Date Molina De Anda MD [address] [place] [address] PCP - General Family Medicine 02/21/24 Valerie Groves NP [address] [place] [address] Nurse Practitioner Family Medicine 02/21/[address] [facility] [address] [address] [place] [address] Nurse Practitioner Behavioral Health 01/22/25 documented as of this encounter
--- OUTSIDE RECORDS SUMMARY | 2025-02-19 09:31 | XMS_ITS | Encounter Summary ---
Author Organization [facility] Address [address] [place] [address] Care Team Providers Care Post Doctoral Fellow Name Role Phone Molina De Anda MD Primary Care Provider [phone] Valerie Groves TECHNICIAN PLANT AND MAINTENANCE Unavailable [phone] Karime Dias [facility]- Unavailable + [phone] Encounter Details Date Type Department Care Team (Late st Contact Info) Description 01/20/2025 Abstract [facility] [address] [place] [address] Pascale Arana NP [address] [place] [address] Social History Tobacco Use Types Packs/Day Years [...] any clubs o r organizations such as baptism groups, unions, fraternal or athletic groups, or [...] Recorded Patient Health Questionnaire-2 Score 5 01/22/2025 [facility] of Occupat ional Health - Occupational [...] half the days 01/22/2025 9:29 AM Karime Norirs PMHNP-TWIN Feeling down, depressed, or hopeless Nearly [...] [facility] [address] [facility] [address] [place] [address] Karime Dias PMHNP-BC [address] [place] [address] [place] [address] 02/25/2025 11:30 AM EDT Office Visit [facility] [address] [place] [address] Pascale Arana, MARY JO [address] [place] [address] 03/06/2025 3:00 PM EDT Social Work [facility] [address] [facility] [address] [place] [address] Rohan Burns LPC documented as of this [...] documented as of this encounter Care Teams Post Doctoral Fellow Relationship Specialty Start Date End Date Molina De Anda MD [address] [place] [address] PCP - General Family Medicine 02/21/24 Valerie Groves NP [address] [place] [address] Nurse Practitioner Family Medicine 02/21/24 Kar[facility] Di[facility] [address] [facility] [address] [place] [address] Nurse Practitioner Behavioral Health 01/22/25 documented as of this encounter
--- OUTSIDE RECORDS SUMMARY | 2025-02-19 09:31 | XMS_ITS | Encounter Summary ---
Author Organization [facility] Address [address] [place] [address] Care Team Providers Care Tank Wagon Operator Name Role Phone Molina De Anda MD Primary Care Provider [phone] Valerie Groves MACROECONOMICS PROFESSOR Unavailable [phone] Karime Dias [facility]- Unavailable + [phone] Encounter Details Date Type Department Care Team (Late st Contact Info) Description 11/14/2024 Orders Only [facility] [address] [place] [address] Pascale Arana NP [address] [place] [address] UTI (urinary tract infection), uncomplicated (Primary Dx) [...] often do you attend chur ch or adventism services? Never 08/07/2023 Do you belong to any clubs o r organizations such as baptist groups, unions, fraternal or athletic groups, or [...] Recorded Patient Health Questionnaire-2 Score 0 04/10/2024 [facility] of Occupat ional Health - Occupational [...] Visit [facility] [address] [facility] [address] [place] [address] Karime Dias [facility] [address] [facility] [address] [place] [address] 02/25/2025 11:30 AM EDT Office Visit [facility] [address] [place] [place] [address] Pascale Arana NP [address] [place] [address] 03/06/2025 3:00 PM EDT Social Work [facility] [address] [facility] [address] [place] [address] Rohan Burns LPC Scheduled Orders Name Type [...] Primary Urinary tract infection, site not specified JESSIKA (generalized anxiety disorder) Generalized anxiety disorder [...] documented as of this encounter Care Teams Tank Wagon Operator Relationship Specialty Start Date End Date Molina De Anda MD [address] [place] [address] PCP - General Family Medicine 02/21/24 Valerie Groves NP [address] [place] [address] Nurse Practitioner Family Medicine 02/21/24 Karime Dias [facility] [address] [facility] [address] [place] [address] Nurse Practitioner Behavioral Health 01/22/25 documented as of this encounter
--- OUTSIDE RECORDS SUMMARY | 2025-02-19 09:32 | XMS_ITS | Clinical Summary ---
Author Organization [facility] Address [address] [place] [address] Care Team Providers Care Blast Furnace Operator Name Role Phone Molina De Anda MD Primary Care Provider [phone] Valerie Groves SLASHER HAND Unavailable [phone] Karime Dias PMHNP- Unavailable [phone] Allergies Active Allergy Reactions Criticality Noted Date [...] capsule (300 mg) before bedtime. 90 capsule 11/19/19 25 Active DULoxetine (Cymbalta) [address] capsuleIndicat ions:Fibromyal elba Take 1 capsule (60 mg) by mouth Daily 90 capsule 11/20/19 25 Active Additional Information Patient taking differently:60 mg OralDaily in the morning, Reported on 01/22/2025 DULoxetine (Cymbalta) [address] capsuleIndicat ions:Fibromyal elba Take 1 capsule (30 mg) by mouth Daily 90 capsule 1 11/20/19 25 Active Additional Information Patient taking differently:30 mg [...] chew, or split. 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 Take 1 capsule (4 mg) by mouth Daily 90 capsule 1 11/19/19 25 025 lamoTRIgine (LaMICtal) 25 MG tabletIndicati ons:Bipolar disorder with severe depression (HCC) 1 pill at bedtime for 2 weeks, then increase to 1 pill twice a day 60 tablet 01/07/20 25 025 Discontinued(D ose adjustment) albuterol HFA 90 mcg/act inhalerIndicat ions:URTI (acute upper respiratory infection),Non -recurrent acute suppurative otitis media of both ears without spontaneous rupture of tympanic membranes Inhale 2 puffs every 6 (six) hours if needed for wheezing 18 g 01/15/20 25 025 Discontinued Active Problems Problem Noted Date Diagnosed Date Spinal stenosis, lumbosacral region 02/05/2025 Spinal stenosis, cervical region 02/05/2025 Sleep apnea 01/22/2025 Severe episode of recurrent [...] of the risks of continued smoking: stroke, WA, all forms of cancer, lung disease, and [...] of the risks of continued smoking: stroke, WA, all forms of cancer, lung disease, and [...] of the risks of continued smoking: stroke, WA, all forms of cancer, lung disease, and [...] of the risks of continued smoking: stroke, WA, all forms of cancer, lung disease, and [...] Resolved Date UTI (urinary tract infection), uncomplicated 5 11/20/2024 Well woman exam with routine gynecological [...] abdominal wall 08/12/2024 11/20/2024 Overview (08/12/2024): [employer] [id number] EXP: 10/22/2026 LOT # [id number] Assessment & Plan (08/12/2024 5:50 PM EST): [...] Encounters Date Type Department Care Team Description 02/18/2025 Abstract [facility] [address] [place] [address] Pascale Arana NP 02/17/2025 Telephone [facility] [address] [place] [address] Pascale Arnaa NP Error (VOID this visit) 02/11/2025 Refill [facility] [address] [place] [address] Pascale Arana NP UTI (urinary tract infection), uncomplicated; Class 1 obesity due to excess calories without serious comorbidity in adult, unspecified BMI; BMI 32.0-32.9,adult 02/06/2025 Refill [facility] [address] [place] [address] Pascale Arana NP URTI (acute upper respiratory infection); Non-recurrent acute suppurative otitis media of both ears without spontaneous rupture of tympanic membranes 02/05/2025 Clinisync Result Encounter [facility] External Department Unsolicited Provider, Generic External Data 02/05/2025 Clinisync Result Encounter [facility] External Department Unsolicited Provider, Generic External Data 02/01/2025 Refill [facility] [address] [place] [address] Pascale Arana NP Bipolar disorder with severe depression (HCC) 01/22/2025 9:00 AM EDT [facility] [address] [place] [address] [place] [address] Karime Dias, PMHNP- JESSIKA (generalized anxiety disorder) ; Severe episode of recurrent major depressive disorder, without psychotic features (HCC); PTSD (post-traumatic stress disorder) ; Insomnia, unspecified type; Sleep apnea, unspecified type; Encounter for drug screening; Bipolar disorder with severe depression ([facility]) 01/22/2025 Telephone [facility] [address] [place] [address] Pascale Arana, MARY JO 01/22/2025 Orders Only [facility] [address] [facility] [facility] [address] [place] [address] Karime Dias, [facility] 01/22/2025 Bamboo flowsheet [facility] [address] [facility] [facility] [address] [place] [address] Karime Dias, [facility]- 01/22/2025 Travel 01/20/2025 Abstract [facility] [address] [place] [address] Pascale Arana, MARY JO 01/15/2025 Telephone [facility] [address] [place] [address] Pascale Arana, MARY JO 01/14/2025 Clinisync Result Encounter [facility] External Department Unsolicited Pascale Arana NP 01/14/2025 Refill [facility] [address] [place] [address] Pascale Arana, MARY JO URTI (acute upper respiratory infection); Non-recurrent acute suppurative otitis media of both ears without spontaneous rupture of tympanic membranes 01/08/2025 Telephone [facility] [address] [place] [address] Pascale Arana, MARY JO 01/07/2025 Orders Only [facility] [address] [place] [address] Pascale Arana, MARY JO B12 deficiency (Primary Dx); Iron deficiency anemia secondary to inadequate dietary iron intake 01/07/2025 Telephone [facility] [address] [place] [address] Pascale Arana NP Vaginitis/Bacterial Vaginosis 01/06/2025 4:30 PM EDT Office Visit [facility] [address] [place] [address] Pascale Arana NP Bipolar disorder with severe depression (HCC) (Primary Dx); Gastroesophageal reflux disease, unspecified whether esophagitis present; Class 1 obesity due to excess calories without serious comorbidity with body mass index (BMI) of 32.0 to 32.9 in adult; Cigarette nicotine dependence without complication; Stress; Fibromyalgia; Psychophysiological insomnia 01/06/2025 Abstract [facility] [address] [place] [address] Pascale Arana NP 01/06/2025 Telephone [facility] [address] [place] [address] Pascale Arana NP 01/06/2025 Abstract [facility] [address] [place] [address] Pascale Arana NP 01/06/2025 Bamboo flowsheet [facility] [address] [place] [address] Pascale Arana NP 12/18/2024 Refill [facility] [address] [place] [address] Pascale Arana NP URTI (acute upper respiratory infection); Non-recurrent acute suppurative otitis media of both ears without spontaneous rupture of tympanic membranes 11/28/2024 Results Follow-Up [facility] [address] [place] [address] 11/20/2024 3:20 PM EDT Procedure Visit [facility] [address] [place] [address] Pascale Arana NP Well woman exam with [...] Pascale Arana NP 11/20/2024 Bamboo flowsheet [facility] [address] [place] [address] Pascale Arana NP from Last 3 Months Family History Medical History Relation Name Comments Diabetes Father Roberto Heart disease Father Roberto Hypertension Father Roberto Stroke Father Roberto Breast cancer Maternal Grandmother [...] often do you attend chur ch or congregation services? Never 08/07/2023 Do you belong to any clubs o r organizations such as mandaeism groups, unions, fraternal or athletic groups, or [...] Recorded Patient Health Questionnaire-2 Score 5 01/22/2025 [facility] - Occupational Stress Questionnaire Answer Date [...] Visit [facility] [address] [facility] [address] [place] [address] Karime Dias, PMHNP- [address] [facility] [facility] [address] [place] [address] 02/25/2025 11:30 AM EDT Office Visit [facility] [address] [place] [address] Pascale Arana, MARY JO [address] [place] [address] 03/06/2025 3:00 PM EDT Social Work [facility] [address] [place] [address] [place] [address] Rohan Bunrs, EH Health Maintenance Due Date Last Done Comments [...] Diagnosis Comments MR LUMBAR SPINE WO CON 2:18 PM EDT MR CERVICAL SPINE WO CONTRAST 02/05/2025 12:16 PM EDT TRANSFERRIN Routine 01/14/2025 12:49 PM EDT VITAMIN B12 Routine 01/14/2025 12:49 PM EDT [facility] FERRITIN Routine 01/14/2025 12:49 PM EDT METRO IRON AND TIBC Routine 01/14/2025 1 2:49 PM EDT ALL CBC WITH AUTO DIFF Routine 12:49 PM EDT IGP,APTIMA HPV,AGE GDLN Routine 11/20/2024 4:05 PM EDT MM TOMOSYNTHESIS SCREENING BI 10/23/2024 3:55 PM EDT from Last 3 Months or Most Recently Relevant to Health Maintenance Results * MR LUMBAR SPINE WO CON (02/05/2025 2:18 PM EDT) Anatomical Region Laterality Modality Other 02/05/2025 2:18 PM EDT Narrative 02/05/2025 2:21 [place] [address] Magnetic Resonance Report Signed Patient: TALIA RUTHERFORD MR#: [id number] : 1970 Acct:[id number] Age/Sex: 54 / F ADM Date: 02/04/25 Loc: MRI Attending Dr: Bandar Eden M.D. Ordering Physician: Bandar Eden M.D. Date of Service: 02/04/25 Procedure(s): MR lumbar spine wo con Accession Number(s): [id number] cc: Pascale Arana SLASHER HAND; Bandar Eden M.D. The [place] [id number] Patient Name: TALIA RUTHERFORD MRN: [id number] date: 1970 Sex: F Assigned Patient Location: MRI Current Patient Location: Accession/Order Number: [id number] Exam Date: 02/05/2025 12:16 Report Date: 02/05/2025 14:18 At the request of: BANDAR EDEN MD Procedure: MR lumbar spine wo con [...] Circumferential disc bulge with moderate facet arthropathy. Hpdg-hx-oaylmhyq right-sided and mild left-sided neural foraminal narrowing . 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 Impression dictated by: Mushtaq Antony M.D. 02/05/2025 2:18 PM Dictation Location: [place] [address] Electronically authenticated by: [id number] Y Date: 02/05/2025 14:18 Dictated By: Mushtaq Antony M.D. Signed By: 02/05/25 1421 DD/ 1418 TD/TT: Carrot Buncher: Procedure Note Radiology, Radiologist, MD - 02/05/2025 [place] [address] Magnetic Resonance Report Signed Patient: TALIA RUTHERFORD DMR#: [id number] : 1970Acct:[id number] Age/Sex: 54 / FADM Date: 02/04/25 Loc: MRI Attending Dr: Bandar Eden M.D. Ordering Physician: Bandar Eden M.D. Date of Service: 02/04/25 Procedure(s): MR lumbar spine wo con Accession Number(s): [id number] cc: Pascale Arana NP; Bandar Eden M.D. [place] [address] Patient Name: TALIA RUTHERFORD MRN: [id number] date: 1970 Sex: F Assigned Patient Location: MRI Current Patient Location: Accession/Order Number: [id number] Exam Date: 02/05/2025 12:16 Report Date: 02/05/2025 14:18 At the request of: BANDAR EDEN MD Procedure: MR lumbar spine wo con [...] Circumferential disc bulge with moderate facet arthropathy. Pfbl-tu-hzfrnaet right-sided and mild left-sided neural foraminalnarrowing . 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 Impression dictated by: Mushtaq Antony M.D. 02/05/2025 2:18 PM Dictation Location: [place] [address] Electronically authenticated by: [id number] Y Date: 4:18 Dictated By: Mushtaq Antony M.D. Signed By:02/05/25 1421 DD/ 1418 TD/TT: Carrot Buncher: us Generic External Data Provider [facility] IMAGING Final Result * MR cervical spine wo contrast (02/05/2025 12:16 PM EDT) Anatomical Region Laterality Modality Spine, C-spine Magnetic Resonan ce 02/05/2025 12:1 6 PM EDT Narrative 02/05/2025 12:18 [place] [address] Magnetic Resonance Report Signed Patient: TALIA RUTHERFORD MR#: [id number] : 1970 Acct:[id number] Age/Sex: 54 / F ADM Date: 02/04/25 Loc: MRI Attending Dr: Bandar Eden M.D. Ordering Physician: Bandar Eden M.D. Date of Service: 02/04/25 Procedure(s): MR cervical spine wo con Accession Number(s): [id number] cc: Pascale Arana NP; Bandar Eden M.D. The [place] [address] Patient Name: TALIA RUTHERFORD MRN: [id number] date: 1970 Sex: F Assigned Patient Location: MRI Current Patient Location: Accession/Order Number: [id number] Exam Date: 02/05/2025 12:10 Report Date: 02/05/2025 12:16 At the request of: BANDAR EDEN MD Procedure: MR cervical spine wo con [...] Uncovertebral spurring greatest right. Moderate right and xweb-he-owdyrlaa left-sided neural foraminal narrowing. Mild canal narrowing. C5-6: Broad-based disc bulge with uncovertebral spurring, greatest left. Moderate right-sided moderate to severe left-sided neural foraminal narrowing. Mild central canal stenosis. C6-C7: Broad-based disc osteophyte complex with uncovertebral spurring. Urox-iq-bdrwchqw right moderate severe left neural foraminal narrowing. Nuwo-uf-nafbeyvz canal narrowing. C7-T1: Minimal vertebral hypertrophy. Moderate facet arthropathy. Canal and patent. Mild foraminal narrowing. MR/MR cervical spine wo con IMPRESSION: Overall multilevel degenerative changes with up to rsty-ro-ckwyhbdf central canal narrowing. Multilevel foraminal encroachment as noted above. Impression dictated by: Mushtaq Antony M.D. 02/05/2025 12:16 PM Dictation Location: [place] [address] Electronically authenticated by: [id number] Y Date: 02/05/2025 12:16 Dictated By: Mushtaq Antony M.D. Signed By: 02/05/25 1218 DD/ 1216 TD/TT: Carrot Buncher: Procedure Note Radiology, Radiologist, MD - 02/05/2025 [place] [address] Magnetic Resonance Report Signed Patient: TALIA RUTHERFORD [facility]#: [id number] : 1970Acct:[id number] Age/Sex: 54 / FADM Date: 02/04/25 Loc: MRI Attending Dr: Bandar Eden M.D. Ordering Physician: Bandar Eden M.D. Date of Service: 02/04/25 Procedure(s): MR cervical spine wo con Accession Number(s): [id number] cc: Pascale Arana NP; Bandar Eden M.D. [place] [address] Patient Name: TALIA RUTHERFORD MRN: [id number] date: 1970 Sex: F Assigned Patient Location: MRI Current Patient Location: Accession/Order Number: [id number] Exam Date: 02/05/2025 12:10 Report Date: 02/05/2025 12:16 At the request of: BANDAR EDEN MD Procedure: MR cervical spine wo con [...] Uncovertebral spurring greatest right. Moderate right and wjrp-rr-tkhiokkm left-sided neural foraminal narrowing. Mild canal narrowing. C5-6: Broad-based disc bulge with uncovertebral spurring, greatest left. Moderate right-sided moderate to severe left-sided neural foraminalnarrowing. Mild central canal stenosis. C6-C7: Broad-based disc osteophyte complex with uncovertebral spurring. Zogx-qe-pqroyvzb right moderate severe left neural foraminal narrowing. Txmp-ns-lkwnejeq canal narrowing. C7-T1: Minimal vertebral hypertrophy. Moderate facet arthropathy. [place] patent. Mild foraminal narrowing. MR/MR cervical spine wo con IMPRESSION: Overall multilevel degenerative changes with up to aowo-gb-ekvqssiyrmtprhj canal narrowing. Multilevel foraminal encroachment as noted above. Impression dictated by: Mushtaq Antony M.D. 02/05/2025 12:16 PM Dictation Location: [place] [address] Electronically authenticated by: [id number] Y Date: 2:16 Dictated By: Mushtaq Antony M.D. Signed By:02/05/25 1218 DD/ 1216 TD/TT: Carrot Buncher: us Generic External Data Provider IMG MRI PROCEDURE S Final Result * (ABNORMAL) VITAMIN B12 (01/14/2025 12:49 PM EDT) Pathologist [facility] VITAMIN B12 >2000(A) 232 - 1245 pg/mL [facility] Comment: Performed at: [address] [id number] Privacy Compliance Manager: Hector Franco PhD, Phone: [phone] 01/14/2025 12:4 9 PM EDT 01/14/2025 12:50 PM EDT Narrative CLINISYNC - 01/15/2025 4:07 AM EDT us Pascale Arana SLASHER HAND LAB BLOOD ORDERABLES Final Resu lt Performing Organization Address [facility]/ZIP Co de Phone Number [facility] * TRANSFERRIN (01/14/2025 12:49 PM EDT) [facility] TRANSFERRIN 296 192 - 364 mg/dL [facility] Comment: Performed at: [address] [id number] Privacy Compliance Manager: Hector Franco PhD, Phone: [phone] 01/14/2025 12:4 9 PM EDT 01/14/2025 12:50 PM EDT Narrative CLINISYNC - 01/15/2025 5:07 AM EDT us Pascale Arana SLASHER HAND LAB BLOOD ORDERABLES Final Resu lt Performing Organization Address City/[facility]/ZIP Co de Phone Number [facility] * METRO IRON AND TIBC (01/14/2025 12:49 PM EDT) [facility] IRON 54.0 50.0 - 170.0 ug/dL [facility] TOTAL IRON BINDING CAPACITY 387.0 250.0 - 450.0 ug/dL [facility] PERCENT IRON SATURATION 14.0 % [facility] 01/14/2025 12:4 9 PM EDT 01/14/2025 12:50 PM EDT Narrative CLINISYNC - 01/14/2025 1:50 PM EDT Pascale Arana SLASHER HAND CLINISYNC Final Result [facility] TB * [facility] FERRITIN (01/14/2025 12:49 PM EDT) [facility] FERRITIN 10.0 8.0 - 252.0 ng/mL TB 01/14/2025 12:4 9 PM EDT 01/14/2025 12:50 PM EDT Narrative CLINISYNC - 01/14/2025 2:05 PM EDT Pascale Arana SLASHER HAND CLINISYNC Final Result CLINISYMT TB * (ABNORMAL) ALL CBC WITH AUTO DIFF (01/14/2025 12:49 PM EDT) [facility] TB WBC 6.1 4.0 - 11.0 10 3/uL [facility] TB RBC 4.12(L) 4.20 - 5.40 10 6/uL [facility] TBH HGB 11.8(L) 12.0 - 16.0 g/dL TB TB HCT 36.2 36.0 - 48.0 % [facility] MCV 87.9 81.0 - 99.0 fL TBH TBH MCH 28.6 26.7 - 34.0 pg TBH TBH MCHC 32.6 29.9 - 35.2 g/dL TB [facility] RDW 15.6(H) 11.0 - 15.0 % [...] 1:00 PM EDT us Pascale Arana NP CLINIS[facility]MT Final Result [facility] * (ABNORMAL) IGP,APTIMA HPV,AGE GDLN (11/20/2024 4:05 PM EDT) Pathologist [facility] AGE GDLN ACOG TESTING Note . [facility] Comment: TESTS RESULT FLAG UNITS REF RANGE LAB Clinician Provided Cytology Information Source.............Cervix;Endocervix No. of containers..01 ThinPrep Vial Age Algo ACOG Fiorella... 30-65 01 FLAG LEGEND: L-Low Normal,H-High Normal,LL-Alert Low,HH-Alert High <-Panic Low,>-Panic High,A-Abnormal,AA-Critical Abnormal Performed at: 01 =[facility] [address] [place] [address] Monika Norton MD, IGP, APTIMA HPV, RFX 16/18,45 Note . [facility] Comment: TESTS RESULT FLAG UNITS REF RANGE LAB DIAGNOSIS: 02 NEGATIVE FOR INTRAEPITHELIAL LESION OR MALIGNANCY. Specimen adequacy: 02 Satisfactory for evaluation. Endocervical and/or squamous metaplastic cells (endocervical component) are present. Performed by: Suresh Guerrero, Public Relations Analyst . 02 Note: Note 02 The Pap [...] <-Panic Low,>-Panic High,A-Abnormal,AA-Critical Abnormal Performed at: [address] [address] Monika Norton MD, HPV APTIMA Positive(A) Negative [facility] Comment: This nucleic acid amplification test detects fourteen high- risk HPV types (16,18,31,33,35,39,45,51,52,56,58,59,66,68) without differentiation. HPV GENOTYPE 16 Negative Negative [facility] HPV GENOTYPE 18,45 Negative Negative [facility] Comment: Performed at: =[address] [id number] Privacy Compliance Manager: Monika Norton MD, Phone: [phone] Performed at: [address] [id number] Privacy Compliance Manager: Monika Norton MD, Phone: [phone] 11/20/2024 4:05 PM EDT 11/21/2024 7:10 AM EDT Narrative MATTIE - 11/26/2024 8:08 PM EDT BRUSH-ALONE CERVIX ENDOCERVIX us Pascale Arana NP LAB BLOOD ORDERABLES Final Resu lt CLINIS[facility]NC [facility] * MM TOMOSYNTHESIS SCREENING BI (10/23/2024 3:55 PM EDT) Anatomical Region Laterality Modality Other 10/23/2024 3:55 PM EDT Narrative 10/23/2024 3:55 PM EDT The [address] [address] Mammography Report Signed Patient: TALIA RUTHERFORD MR#: [id number] : 1970 Acct:[id number] Age/Sex: 54 / F ADM Date: 10/23/24 Loc: MAMMO Attending Dr: Pascale Arana NP Ordering Physician: Pascale Arana NP Results: Date of Service: 10/23/24 Follow Up: Procedure(s): MM tomosynthesis screening BI Accession Number(s): [id number] cc: Pascale Arana NP Patient Name: TALIA RUTHERFORD MR#: [id number] : 1970 Exam Date: 10/23/2024 Ordering Doctor: [...] breast cancer at age 51. LOCATION: The [facility] BREAST COMPOSITION: There are scattered areas [...] Massey M.D. Signed By: 10/23/24 1555 DD/ 1555 TD/TT: Carrot Buncher: Procedure Note Radiology, Radiologist, MD - 10/23/2024 [place] [address] Mammography Report Signed Patient: TALIA RUTHERFORD DMR#: [id number] : 1970Acct:[id number] Age/Sex: 54 / FADM Date: 10/23/24 Loc: MAMMO Attending Dr: Pascale Arana NP Ordering Physician: Pascale Arana NPResults: Date of Service: 10/23/24Follow Up: Procedure(s): MM tomosynthesis screening BI Accession Number(s): [id number] cc: Pascale Arana NP Patient Name: TALIA RUTHERFORD MR#: [id number] : 1970 Exam Date: 10/23/2024 Ordering Doctor: JASON Arana EDITOR DEPARTMENT RADIOLOGY REPORT PROCEDURE: MM TOMOSYNTHESIS SCREENING BI COMPARISON: None. INDICATIONS: Screening Calculator Name NCI Breast Cancer Risk Assessment Tool 5 Year Breast Cancer Risk 0.80% Lifetime Breast Cancer Risk 6.20% Personal Breast Cancer No Personal Ovarian Cancer No Treatments None Family Cancers Grandmother-maternal with breast cancer at age 50; Aunt-maternal with breast cancer at age 50. LOCATION: The [facility] BREAST COMPOSITION: There are scattered areas [...] M.D. Signed By:10/23/24 1555 DD/ 1555 TD/TT: Carrot Buncher: Pascale Arana NP [facility] IMAGING Final Result from Last 3 Months or Most Recently Relevant to Health Maintenance Additional Health Concerns Active Problems Noted Date Diagnosed Date Patient on antidepressant monitoring plan 2023 Insurance [employer] Care Teams Blast Furnace Operator Relationship Specialty Start Date End Date Molina De Anda MD [address] [place] [phone] PCP - General Family Medicine 02/21/24 Vaelrie Groves NP [address] [place] [address] Nurse Practitioner Family Medicine 02/21/24 Karime Dias PMHNP- [address] [place] [address] [place] [address] Nurse Practitioner Behavioral Health 01/22/25
--- OUTSIDE RECORDS SUMMARY | 2025-02-19 09:32 | XMS_ITS | Encounter Summary ---
Author Organization [facility] Address [address] [place] [address] Care Team Providers Care Manager Credit Collections Name Role Phone Molina De Anda MD Primary Care Provider [phone] Valerie Groves PETROLEUM ENGINEER Unavailable [phone] Karime Dias [facility]- Unavailable + [phone] Reason for Visit * Reason Onset Date Comments Med Refill Letter for School/Work 02/01/2025 Encounter Details Date Type Department Care Team (Late st Contact Info) Description 02/01/2025 Refill [facility] [address] [place] [address] Pascale Arana NP [address] [place] [address] Bipolar disorder with severe depression (HCC) Social [...] How often do you attend chur or baptism services? Never 08/07/2023 Do you belong to any clubs o r organizations such as sabianism groups, unions, fraternal or athletic groups, or [...] Recorded Patient Health Questionnaire-2 Score 5 01/22/2025 [facility] of Occupat ional Health - Occupational Stress [...] Miscellaneous Notes * Telephone Encounter - Nupur Oneal - 02/05/2025 8:24 AM EDT Patient is worried because her FMLA expires on 02/07/2025 and patient has not even been to counseling yet, she can't get in until mid February. She said she is not ready to go back to work yet. She is asking if we can extend her time off from work until 03/24/2025. JN documented in this encounter Plan of Treatment Upcoming Encounters Date Type Department Care Team (Late st Contact Info) Description 02/24/2025 3:00 PM EDT Office Visit [facility] [address] [place] [address] [place] [address] Karime Dias [facility] 112 [facility] [address] [place] [address] 02/25/2025 11:30 AM EDT Office Visit [facility] [address] [place] [address] Pascale Arana, MARY JO [address] [place] [address] 03/06/2025 3:00 PM EDT Social Work [facility] 112 [facility] [address] [place] [address] Rohan Burns LPC documented as of this encounter Goals Goal Patient Goal Type Associated Problems Recent Progress Patient-Stated? Author Help patient manage antidepressant medication Care Plan Patient on antidepressant monitoring plan No Shaikh Main MD documented as of this encounter Visit Diagnoses Diagnosis Bipolar disorder with severe depression (HCC) JESSIKA (generalized anxiety disorder) Generalized anxiety disorder [...] as of this encounter Care Teams Manager Credit Collections Relationship Specialty Start Date End Date Molina De Anda MD [address] [place] [address] PCP - General Family Medicine 02/21/24 Valerie Groves NP [address] [place] [address] Nurse Practitioner Family Medicine 02/21/24 Karime Dias [facility] 112 [facility] 160 [place] [address] Nurse Practitioner Behavioral Health 01/22/25 documented as of this encounter
== END 2025-02-19 09:28 | disposition home or self-care (01) ==
LOC: WC 09:28
PROVIDERS: PCP Nurse Practitioner; Visit Provider Podiatrist Foot & Ankle Surgery
DX: L97.522 Non-pressure chronic ulcer of other part of left foot with fat layer exposed (principal)
CPT/HCPCS: G0463

== ENCOUNTER 2025-02-19 09:53 | Outpatient (OUT) | payer OTHER, SELFPAY ==
--- OUTSIDE RECORDS SUMMARY | 2019-11-19 07:15 | XMS_ITS | Continuity of Care Document ---
Author Organization [facility] Address [address] [facility] [place] [address] Phone Care Team Providers Care Datawarehouse Developer Name Role Phone Bernardo WELLER, Mathew Early Unavailable Procedures Procedure Date POSTOP FOLLOW-UP VISIT POSTOP FOLLOW-UP VISIT Gastric Bypass LAP GASTRIC BYPASS/YOUSUF-EN-Y OFFICE/OUTPATIENT VISIT, EST OFFICE/OUTPATIENT VISIT, NEW Advance Directives Directive Yes / No Effective Date File Name No Information Encounters Encounter Description Practice Location Reason(s) For Visit Diagnoses Date Provider Providers Copied on Encounter [facility], [address] [place] [address], [id number], tel:[phone] [facility] No Information Bernardo Carmona. [address], [id number], [place]. tel:[phone] Referring Provider: Mathew Boudreaux, [address], [address]. tel:[phone] [facility], [address] [place] [address], [id number], tel:[phone] [facility] No Information Laci Londono. [address] [facility] [address], [place], [id number], [place]. tel:[phone] Referring Provider: Spring Aguero, [address] [facility] [address], [place], [address]. tel:[phone] [place] [facility] [facility], [address] [place] [address] [address], [place], [place], [id number], [place] tel:[phone] [facility] IP No Information Laci Londono. [address], [place], [place], [id number], [place]. tel:[phone] Referring Provider: Spring Aguero, [address] [facility] [address], [place], [address]. tel:[phone] [place] [facility] [facility], [address] [place] [address] [address], [place], [place], [id number], [place] tel:[phone] [facility] IP No Information Bernardo Carmona. [address] [facility] [address], [place], [place], [id number], [place]. tel:[phone] Referring Provider: Mathew Boudreaux, [address] [facility] [address], [place], [address]. tel:[phone] OFFICE/OUTPATI ENT VISIT, [facility], [address] [facility] [address], [place], [place], [address], [place] tel:[phone] [facility] No Information Bernardo Carmona. [address] [facility] [address], [place], [place], [id number], [place]. tel:[phone] Referring Provider: Mathew Boudreaux, [address] [facility] [address], [place], [address]. tel:[phone] OFFICE/OUTPATI ENT VISIT, [facility], [address] [place] [address] [address], [place], [place], [id number], [place] tel:[phone] [facility] No Information Bernardo Carmona. [address] [facility] [address], [place], [place], [id number], [place]. tel:[phone] Referring Provider: Mathew Boudreaux, [address] [facility] [address], [place], [address]. tel:[phone] Family History Family Member Type Diagnosis Age At Onset No Information Payers Payer name Insurance type Covered libertarian ID Bijal elmore(anastasiia Ruiz [id number] Social History Type Description Quantity Date Captured [...]
--- OUTSIDE RECORDS SUMMARY | 2025-02-06 14:15 | XMS_ITS | Encounter Summary ---
Author Organization [employer] s tem Address [id number] [address] [place] [address] Care Team Providers Care Laborer Driver Name Role Phone No Pcp, No Pcp Primary Care Provider Unavailabl e Reason for Referral * Consultation (Routine) - Authorized Specialty Diagnoses / Procedures Referred By Contact Referred To Contact Urogynecology / Gynecology Diagnoses Cystocele with second degree uterine prolapse History of reconstructive repair of rectocele Urge urinary incontinence Leslye Muniz DO [address] [place] [address] Phone: tel:[phone] fax:[phone] Tania Asif MD [address], [address] [address] Phone: tel:[phone] fax:[phone] Referral ID Status Reason Start Date Expiration Date Visits Requested Visits Authorized [id number] Authorized Specialty Services Required 02/06/2025 02/06/2026 1 1 Reason for Visit * Reason Comments New Patient New Patient presents for evaluation of a possible rectocele. Encounter Details Date Type Department Care Team (Latest Contact Info) Description 02/06/2025 2:15 PM EDT Office Visit [facility]col[facility] [address] [place] [address] Leslye Muniz DO [address] [place] [address] Cystocele with second degree uterine prolapse (Primary Dx); History of reconstructive repair of rectocele; Urge urinary incontinence; Incomplete emptying of bladder; Atrophic vaginitis Social History Tobacco Use Types Packs/Day Years Used Date Smoking Tobacco: Every Day Cigarettes 1 35 Smokeless Tobacco: Never Tobacco Cessation:Ready to Q uit: Not Asked; Counseling Given: Not Answered Alcohol Use Standard Drinks/Week Comments Not Currently 0 (1 standard drink = 0.6 oz pur e alcohol) Childcare Answer Date Recorded Childcare Unknown 01/02/2019 Employment Answer Date Recorded Employment Unknown 01/02/2019 Hunger Screening Answer Date Recorded Within the past 12 months we worried whether our food would run out before we got money to buy more. Never True 02/06/2025 Within the past 12 months th e food we bought just didn't last and we didn't have money to get more. Never True 02/06/2025 Purpose - Life Answer Date Recorded Purpose and direction in life Unknown Comments No Sex and Gender Information Value Date Recorded Sex Assigned at Not on file Legal Sex Female 12:10 PM EDT Gender Identity Not on file Sexual Orientation Not on file documented as of this encounter Last Filed Vital Signs Vital Sign Reading Time Taken Comments Blood Pressure 108/80 02/06/2025 2:23 PM EDT Pulse - - Temperature - - Respiratory Rate - - Oxygen Saturation - - Inhaled Oxygen Concentration - - Weight 78.9 kg (174 lb) 02/06/2025 2:23 PM EDT Height 166.4 cm (5' 5.5 ) 02/06/2025 2:23 PM EDT Body Mass Index 28.51 02/06/2025 2:23 PM EDT documented in this encounter Patient Instructions * Attachments The following attachments cannot be sent through Care Everywhere. * Pelvic floor muscle exercises (Greek) documented in this encounter Progress Notes * Leslye Muniz DO - 02/06/2025 2:15 PM EDT Subjective Patient ID: Talia Mercado is a pleasant 54 y.o. female who presents today as a new patient withconcerns of bulge coming out of her vagina. Patient states that she had a rectocele repaired a few years ago. She can not recall the physician's name, and she is unsure if mesh was used. She stateshe also told her that he would tack everything up .She was told by that physician that she should never lift more than 10 lb . She reports that over the past few weeks she has been very active doing outdoor yd work and helping her daughter remodel, and is concerned that she has damage the prior repair. She is also experiencing difficulties completely emptying her bladder. She feels that she has to strain to empty her bladder, and has to get to a bathroom immediately when she feels the urge to go. She states that when she feels the urge to go if she does not get to the bathroom quickly she will lose some urine. She carries extra underwear and pants with her everywhere she goes as this does happen frequently. Patient underwent natural menopause approximately 3 years ago. She does not take any hormone replacement therapy. She has never used vaginal estrogen. She is sexually active with 1 partner her . Chief Complaint: Vaginal bulge, history of prior pelvic floor reconstruction, urge urinary incontinence, feeling of inability to completely empty her bladder Menstrual History: OB History No obstetric history on file. No LMP recorded. Patient is postmenopausal. The following portions of the patient's history were reviewed and updated as appropriate: allergies, current medications, past family history, past medical history, past social history, past surgicalhistory, problem list, and medication reconciliation was completed including current medication andpost discharge medication. Review of Systems Constitutional: negative Respiratory: negative Cardiovascular: negative Gastrointestinal: negative Genitourinary:Vaginal, urge urinary incontinence, inability to completely empty her bladder, prior pelvic floor reconstruction Objective BP 108/80 Ht 166.4 cm (5' 5.5 ) Wt 78.9 kg (174 lb) BMI 28.51 kg/m?? General: alert, appears stated age, and cooperative Heart: regular rate and rhythm, S1, S2 normal, no murmur, click, rub or gallop Lungs: clear to auscultation bilaterally Abdomen: soft, non-tender, without masses or organomegaly Vulva: Cystocele appreciated extending to the vaginal introitus and slightly past the vaginal introitus with Valsalva in dorsal lithotomy position extends. The uterus is noted to be more anterior, but also has approximately a grade 2-3 prolapse. There is scar tissue posteriorly from the prior rectocele repair Vagina: Atrophic vaginitis Cervix: multiparous appearance and no cervical motion tenderness Uterus: mobile, non-tender, normal shape and consistency Adnexa: no mass, fullness, tenderness Assessment 1. Cystocele with second degree uterine prolapse 2. History of reconstructive repair of rectocele 3. Urge urinary incontinence 4. Incomplete emptying of bladder 5. Atrophic vaginitis Plan 1. Prescription for vaginal estrogen cream placed and patient instructed on use 2. Pelvic floor exercises explained and information provided to patient 3. Referral to Urogynecology placed secondary to patient's urologic symptoms and history of prior pelvic floor reconstruction unknown if mesh was utilized documented in this encounter Plan of Treatment Upcoming Encounters Date Type Department Care Team (Late st Contact Info) Description 04/02/2025 3:00 PM EDT Office Visit [facility] - Urogyn [address] [place] [address] Tania Asif MD [address] [place] [address] Scheduled Referrals Name Type Priority Associated Diagnoses Orde r Schedule [facility] - Urogynecology - [place], [place] Outpatient Referral Routine Cystocele with second degree uterine prolapse History of reconstructive repair of rectocele Urge urinary incontinence 1 Occurrences starting 02/06/2025 until 02/06/2026 documented as of this encounter Visit Diagnoses Diagnosis Cystocele with second degree uterine prolapse- Primary History of reconstructive repair of rectocele Urge urinary incontinence Urge incontinence Incomplete emptying of bladder Incomplete bladder emptying Atrophic vaginitis Postmenopausal atrophic vaginitis documented in this encounter Care Teams Laborer Driver Relationship Specialty Start Date End Date No Pcp, [place] [address] PCP - General Family Medicine 11/21/18 documented as of this encounter
--- OUTSIDE RECORDS SUMMARY | 2025-02-19 09:56 | XMS_ITS | Encounter Summary ---
Author Organization [facility] Address [address] [place] [address] Care Team Providers Care Manager Solar Name Role Phone Molina De Anda MD Primary Care Provider [phone] Valerie Groves SUPERCALENDER OPERATOR HELPER Unavailable [phone] Karime Dias PMHNP- Unavailable + [phone] Encounter Details Date Type Department Care Team (Late Contact Info) Description 11/28/2024 Results Follow-Up [facility] [address] [place] [phone] Social History Tobacco Use Types Packs/Day Years [...] often do you attend chur ch or holiness services? Never 08/07/2023 Do you belong to [...] Recorded Patient Health Questionnaire-2 Score 0 04/10/2024 [facility] Questionnaire Answer Date Recorded [...] [facility] [address] [facility] [address] [place] [address] [facility] [address] [facility] [address] [place] [address] 02/25/2025 11:30 AM EDT Office Visit [facility] [address] [place] [address] Pascale Arana NP [address] [place] [address] 03/06/2025 3:00 PM EDT Social Work [facility] [address] [facility] [address] [place] [address] Rohan Burns LPC documented as of this [...] as of this encounter Care Teams Manager Solar Relationship Specialty Start Date End Date Molina De Anda MD [address] [place] [address] PCP - General Family Medicine 02/21/24 Valerie Groves NP [address] [place] [address] Nurse Practitioner Family Medicine 02/21/24 Karime Dias PMHNP- [address] [place] [address] [place] [address] Nurse Practitioner Behavioral Health 01/22/25 documented as of this encounter
--- OUTSIDE RECORDS SUMMARY | 2025-02-19 09:56 | XMS_ITS | Encounter Summary ---
Author Organization [facility] Address [address] [place] [address] Care Team Providers Care Rounder And Backer Name Role Phone Molina De Anda MD Primary Care Provider [phone] Valerie Groves TOW BAR DRIVER Unavailable [phone] [facility] + [phone] Reason for Visit * Reason Onset Date Comments Error (VOID this visit) 02/17/2025 Encounter Details Date Type Department Care Team (Late st Contact Info) Description 02/17/2025 [facility] [address] [place] [address] Pascale Arana NP [address] [place] [address] Error (VOID this visit) Social History Tobacco [...] any clubs o r organizations such as judaism groups, unions, fraternal or athletic groups, or [...] Recorded Patient Health Questionnaire-2 Score 5 01/22/2025 [facility] Occupational Stress Questionnaire Answer Date [...] Visit [facility] [address] [facility] [address] [place] [address] Karime Dias PMHNP- 112 [facility] [address] [place] [address] 02/25/2025 11:30 AM EDT Office Visit [facility] [address] [place] [address] Pascale Arana NP [address] [place] [address] 03/06/2025 3:00 PM EDT Social Work [facility] [address] [place] [address] [place] [address] Rohan Burns LPC documented as of this [...] documented as of this encounter Care Teams Rounder And Backer Relationship Specialty Start Date End Date Molina De Anda MD [address] [place] [address] PCP - General Family Medicine 02/21/24 Valerie Groves NP [address] [place] [address] Nurse Practitioner Family Medicine 02/21/24 Karime Di[facility] [address] [facility] [address] [place] [address] Nurse Practitioner Behavioral Health 01/22/25 documented as of this encounter
--- OUTSIDE RECORDS SUMMARY | 2025-02-19 09:56 | XMS_ITS | Encounter Summary ---
Author Organization [facility] Address [address] [place] [address] Care Team Providers Care Liner Replacer Name Role Phone Shaikh NITHIN Main Primary Care Provider [phone] Shaikh NITHIN Main Primary Care Provider [phone] Molina De Anda MD Primary Care Provider [phone] Valerie Groves DIRECTOR OF SOFTWARE DEVELOPMENT Unavailable [phone] Karime Dias [facility]- Unavailable [phone] Reason for Visit * Reason Comments Med Refill Encounter Details Date Type Department Care Team (Late st Contact Info) Description 10/16/2023 [facility] [address] [place] [address] Shaikh Main MD [address] [place] [address] Psychophysiological insomnia Social History Tobacco Use Types [...] How often do you attend chur or hindu services? Never 08/07/2023 Do you [...] Recorded Patient Health Questionnaire-2 Score 6 08/03/2023 [facility] of Occupat ional Health - Occupational Stress [...] Office Visit [facility] [address] [place] [address] Karime Dias [facility] [address] [place] [address] 02/25/2025 11:30 AM EDT Office Visit [facility] [address] [place] [address] Pascale Arana NP [address] [place] [address] 03/06/2025 3:00 PM EDT Social Work [facility] [address] [place] [address] [place] [address] Rohan Burns LPC documented as of this [...] documented as of this encounter Care Teams Liner Replacer Relationship Specialty Start Date End Date Shaikh Main MD PCP - General Internal Medicine 04/20/23 01/07/24 Shaikh Main MD [address] [place] [address] PCP - General Internal Medicine 01/08/24 02/20/24 Molina De Anda MD [address] [place] [address] PCP - General Family Medicine 02/21/24 Valerie Groves NP [address] [place] [address] Nurse Practitioner Family Medicine 02/21/24 Karime Dias PMHNP-BC [address] [address] Nurse Practitioner Behavioral Health 01/22/25 documented as of this encounter
--- OUTSIDE RECORDS SUMMARY | 2025-02-19 09:56 | XMS_ITS | Encounter Summary ---
Author Organization [facility] Address [address] [place] [address] Care Team Providers Care Business Analysis Consultant Name Role Phone Molina De Anda MD Primary Care Provider [phone] Valerie Groves INSPECTOR WATCH ASSEMBLY Unavailable [phone] Karime Dias [facility]- Unavailable + [phone] Encounter Details Date Type Department Care Team (Late st Contact Info) Description 11/14/2024 Orders Only [facility] [address] [place] [address] Pascale Arana NP [address] [place] [address] UTI (urinary tract infection), uncomplicated (Primary Dx) [...] often do you attend chur ch or rastafari services? Never 08/07/2023 Do you belong to any clubs o r organizations such as yazidi groups, unions, fraternal or athletic groups, or [...] Recorded Patient Health Questionnaire-2 Score 0 04/10/2024 [facility] of Occupat ional Health - Occupational [...] Visit [facility] [address] [facility] 160 [place] [address] Karime Dias [facility] [address] [facility] [address] [place] [address] 02/25/2025 11:30 AM EDT Office Visit [facility] [address] [place] [address] Pascale Arana NP [address] [place] [address] 03/06/2025 3:00 PM EDT Social Work [facility] [address] [facility] 160 [place] [address] Rohan Burns LPC Scheduled Orders Name Type [...] as of this encounter Care Teams Business Analysis Consultant Relationship Specialty Start Date End Date Molina De Anda MD [address] [place] [address] PCP - General Family Medicine 02/21/24 Valerie Groves NP [address] [place] [address] Nurse Practitioner Family Medicine 02/21/24 Karime Dias [facility] [address] [facility] 160 [place] [address] Nurse Practitioner Behavioral Health 01/22/25 documented as of this encounter
--- OUTSIDE RECORDS SUMMARY | 2025-02-19 09:56 | XMS_ITS | Encounter Summary ---
Author Organization [facility] Address [address] [place] [address] Care Team Providers Care Squirrel Man Name Role Phone Molina De Anda MD Primary Care Provider [phone] Valerie Groves HIDE STRETCHER HAND Unavailable [phone] [facility] + [phone] Encounter Details Date Type Department Care Team (Late st Contact Info) Description 01/06/2025 Abstract [facility] [address] [place] [address] Pascale Arana NP [address] [place] [address] Social History Tobacco Use Types Packs/Day Years [...] How often do you attend chur or yarsanism services? Never 08/07/2023 Do you belong to [...] [facility] [address] [facility] 160 [place] [address] Karime Dias [facility] [address] [facility] 160 [place] [address] 02/25/2025 11:30 AM EDT Office Visit [facility] [address] [place] [address] Pascale Arana NP [address] [place] [address] 03/06/2025 3:00 PM EDT Social Work [facility] [address] [place] [address] [place] [address] Rohan Burns LPC documented as of this [...] documented as of this encounter Care Teams Squirrel Man Relationship Specialty Start Date End Date Molina De Anda MD [address] [place] [address] PCP - General Family Medicine 02/21/24 Valerie Groves NP [address] [place] [address] Nurse Practitioner Family Medicine 02/21/24 Karime Dias [facility] [address] [place] [address] [place] [address] Nurse Practitioner Behavioral Health 01/22/25 documented as of this encounter
--- OUTSIDE RECORDS SUMMARY | 2025-02-19 09:56 | XMS_ITS | Encounter Summary ---
Author Organization [facility] Address [address] [place] [address] Care Team Providers Care Metallurgical Analyst Name Role Phone Molina De Anda MD Primary Care Provider [phone] Valerie Groves OPERATIONS TRAINER Unavailable [phone] Karime Dias [facility]- Unavailable + [phone] Reason for Visit * Reason Comments Med Refill Encounter Details Date Type Department Care Team (Late st Contact Info) Description 02/06/2025 Refill [facility] [address] [place] [address] Pascale Arana NP [address] [place] [address] URTI (acute upper respiratory infection); Non-recurrent acute [...] any clubs o r organizations such as islam groups, unions, fraternal or athletic groups, or [...] Recorded Patient Health Questionnaire-2 Score 5 01/22/2025 [facility] of Occupat ional Health - Occupational Stress [...] Visit [facility] [address] [facility] 160 [place] [address] Karime Dias [facility] 112 [facility] [address] [place] [address] 02/25/2025 11:30 AM EDT Office Visit [facility] [address] [place] [address] Pascale Arana, MARY JO [address] [place] [address] 03/06/2025 3:00 PM EDT Social Work [facility] [address] [facility] 160 [place] [address] Rohan Burns LPC documented as of this [...] documented as of this encounter Care Teams Metallurgical Analyst Relationship Specialty Start Date End Date Molina De Anda MD [address] [place] [address] PCP - General Family Medicine 02/21/24 Valerie Groves NP [address] [place] [address] Nurse Practitioner Family Medicine 02/21/24 Karime Dias [facility] [address] [facility] [address] [place] [address] Nurse Practitioner Behavioral Health 01/22/25 documented as of this encounter
--- OUTSIDE RECORDS SUMMARY | 2025-02-19 09:56 | XMS_ITS | Clinical Summary ---
Author Organization [facility] Address [address] [place] [address] Care Team Providers Care Cigar Sorter Name Role Phone Shaikh NITHIN Main Primary Care Provider [phone] Allergies Active Allergy Reactions Criticality Noted Date [...] complete this topic Insurance [employer] Care Teams Cigar Sorter Relationship Specialty Start Date End Date Shaikh Main MD PCP - General Family Medicine 04/07/23
--- OUTSIDE RECORDS SUMMARY | 2025-02-19 09:56 | XMS_ITS | Encounter Summary ---
Author Organization [facility] Address [address] [place] [address] Care Team Providers Care Medical Lead Name Role Phone Molina De Anda MD Primary Care Provider [phone] Valerie Groves SPECIALTY PERSON Unavailable [phone] Karime Dias [facility]- Unavailable + [phone] Encounter Details Date Type Department Care Team (Late st Contact Info) Description 01/06/2025 Abstract [facility] [address] [place] [address] Pascale Arana NP [address] [place] [address] Social History Tobacco Use Types Packs/Day Years [...] any clubs o r organizations such as orthodoxy groups, unions, fraternal or athletic groups, or [...] [facility] [address] [facility] [address] [place] [address] Karime Dias [facility] [address] [facility] 160 [place] [address] 02/25/2025 11:30 AM EDT Office Visit [facility] [address] [place] [address] Pascale Arana NP [address] [place] [address] 03/06/2025 3:00 PM EDT Social Work [facility] [address] [place] [address] [place] [address] Rohan Burns LPC documented as of this [...] as of this encounter Care Teams Medical Lead Relationship Specialty Start Date End Date Molina De Anda MD [address] [place] [address] PCP - General Family Medicine 02/21/24 Valerie Groves NP [address] [place] [address] Nurse Practitioner Family Medicine 02/21/24 Karime Dias [facility] [address] [place] [address] [place] [address] Nurse Practitioner Behavioral Health 01/22/25 documented as of this encounter
--- OUTSIDE RECORDS SUMMARY | 2025-02-19 09:56 | XMS_ITS | Encounter Summary ---
Author Organization [facility] Address [address] [place] [address] Care Team Providers Care Resume Specialist Name Role Phone Molina De Anda MD Primary Care Provider [phone] Valerie Groves HELP DESK SPECIALIST Unavailable [phone] Karime Dias HNP- Unavailable + [phone] Reason for Visit * Reason Onset Date Comments Med Refill 11/18/2024 Encounter Details Date Type Department Care Team (Late st Contact Info) Description 11/18/2024 Refill [facility] [address] [place] [address] Molina De Anda MD [address] [place] [address] Plantar fasciitis of right foot (Primary Dx) [...] Patient Health Questionnaire-2 Score 0 04/10/2024 [facility] of Occupat ionct Health - Occupational [...] place to sleep or slept in a fdc (including now)? No 08/07/2023 Comments Unknown Sex [...] [facility] [address] [facility] [address] [place] [address] Karime Dias HNP- [address] [facility] [address] [place] [address] 02/25/2025 11:30 AM EDT Office Visit [facility] [address] [place] [address] Pascale Arana NP [address] [place] [address] 03/06/2025 3:00 PM EDT Social Work [facility] 112 [facility] 160 [place] [address] Rohan Burns LPC documented as of this [...] documented as of this encounter Care Teams Resume Specialist Relationship Specialty Start Date End Date Molina De Anda MD [address] [place] [address] PCP - General Family Medicine 02/21/24 Valerie Groves NP [address] [place] [address] Nurse Practitioner Family Medicine 02/21/24 Karime Dias [facility] [address] [facility] [address] [place] [address] Nurse Practitioner Behavioral Health 01/22/25 documented as of this encounter
--- OUTSIDE RECORDS SUMMARY | 2025-02-19 09:56 | XMS_ITS | Encounter Summary ---
Author Organization [facility] Address [address] [place] [address] Care Team Providers Care Food And Beverage Assistant Name Role Phone Shaikh NITHIN Main Primary Care Provider [phone] Shaikh NITHIN Main Primary Care Provider [phone] Molina De Anda MD Primary Care Provider [phone] Valerie Groves FUR DRY CLEANER HAND Unavailable [phone] Karime Dias [facility]- Unavailable Encounter Details Date Type Department Care Team (Late st Contact Info) Description 11/20/2023 Orders Only [facility] [address] [place] [address] Shaikh Main MD [address] [place] [address] Social History Tobacco Use Types Packs/Day Years [...] How often do you attend chur or lutheran services? Never 08/07/2023 Do you [...] Recorded Patient Health Questionnaire-2 Score 0 11/13/2023 [facility] of Occupat ional Health - Occupational [...] Visit [facility] 112 [facility] [address] [place] [address] [facility] Di[facility] [address] [facility] [address] [place] [address] 02/25/2025 11:30 AM EDT Office Visit [facility] [address] [place] [address] Pascale Arana NP [address] [place] [address] 03/06/2025 3:00 PM EDT Social Work [facility] [address] [facility] 160 [place] [address] Rohan Burns LPC documented as of this [...] as of this encounter Care Teams Food And Beverage Assistant Relationship Specialty Start Date End Date Shaikh Main MD PCP - General Internal Medicine 04/20/23 01/07/24 Shaikh Main MD [address] [place] [address] PCP - General Internal Medicine 01/08/24 02/20/24 Molina De Anda MD [address] [place] [address] PCP - General Family Medicine 02/21/24 Valerie Groves NP [address] [place] [address] Nurse Practitioner Family Medicine 02/21/24 Karime Dias [facility]- [address] [facility] [address] [place] [address] Nurse Practitioner Behavioral Health 01/22/25 documented as of this encounter
--- OUTSIDE RECORDS SUMMARY | 2025-02-19 09:56 | XMS_ITS | Encounter Summary ---
Author Organization [facility] Address [address] [place] [address] Care Team Providers Care Security Solutions Architect Name Role Phone Molina De Anda MD Primary Care Provider [phone] Valerie Groves ACADEMIC ADVISOR Unavailable [phone] Karime Dias PMHNP- Unavailable + [phone] Encounter Details Date Type Department Care Team [...] often do you attend chur ch or temple services? Never 08/07/2023 Do you belong to [...] Recorded Patient Health Questionnaire-2 Score 5 01/22/2025 [facility] - Occupational Stress Questionnaire Answer Date [...] [facility] [address] [facility] [address] [place] [address] [facility] [address] [facility] [address] [place] [address] 02/25/2025 11:30 AM EDT Office Visit [facility] [address] [place] [address] Pascale Arana, MARY JO [address] [place] [address] 03/06/2025 3:00 PM EDT Social Work [facility] [address] [facility] [address] [place] [address] Rohan Burns LPC documented as of this [...] EDT Narrative 02/05/2025 12:18 [place] [address] Magnetic Resonance Report Signed Patient: TALIA RUTHERFORD MR#: [id number] : 1970 Acct:[id number] Age/Sex: 54 / F ADM Date: 02/04/25 Loc: MRI Attending Dr: Bandar Nguyễn M.D. Ordering Physician: Bandar Nguyễn M.D. Date of Service: 02/04/25 Procedure(s): MR cervical spine wo con Accession Number(s): [id number] cc: Pascale Arana NP; Bandar Nguyễn M.D. The [address] [address] Patient Name: TALIA RUTHERFORD MRN: [id number] date: 1970 Sex: F Assigned Patient Location: MRI Current Patient Location: Accession/Order Number: [id number] Exam Date: 02/05/2025 12:10 Report Date: 02/05/2025 [...] Uncovertebral spurring greatest right. Moderate right and zxjn-ai-vzweaakv left-sided neural foraminal narrowing. Mild canal narrowing. C5-6: Broad-based disc bulge with uncovertebral spurring, greatest left. Moderate right-sided moderate to severe left-sided neural foraminal narrowing. Mild central canal stenosis. C6-C7: Broad-based disc osteophyte complex with uncovertebral spurring. Jxnc-zb-rcpvkusm right moderate severe left neural foraminal narrowing. Oecp-bi-pwfgdqxw canal narrowing. C7-T1: Minimal vertebral hypertrophy. Moderate facet arthropathy. Canal and patent. Mild foraminal narrowing. MR/MR cervical spine wo con IMPRESSION: Overall multilevel degenerative changes with up to jxhj-qt-zkhrygbx central canal narrowing. Multilevel foraminal encroachment as noted above. Impression dictated by: Mushtaq Antony M.D. 02/05/2025 12:16 PM Dictation Location: [place] [address] Electronically authenticated by: [id number] Y Date: 02/05/2025 12:16 Dictated By: Mushtaq Antony M.D. Signed By: 02/05/25 1218 DD/ 1216 TD/TT: Door Attendant: Procedure Note Radiology, Radiologist, MD - 02/05/2025 [place] [address] Magnetic Resonance Report Signed Patient: TALIA RUTHERFORD [facility]#: [id number] : 1970Acct:[id number] Age/Sex: 54 / FADM Date: 02/04/25 Loc: MRI Attending Dr: Bandar Nguyễn M.D. Ordering Physician: Bandar Nguyễn M.D. Date of Service: 02/04/25 Procedure(s): MR cervical spine wo con Accession Number(s): [id number] cc: Pascale Arana NP; Bandar Nguyễn M.D. [place] [id number] Patient Name: TALIA RUTHERFORD MRN: [id number] date: 1970 Sex: F Assigned Patient Location: MRI Current Patient Location: Accession/Order Number: [id number] Exam Date: 02/05/2025 12:10 Report Date: 02/05/2025 [...] Uncovertebral spurring greatest right. Moderate right and dpsq-qc-acajxxeu left-sided neural foraminal narrowing. Mild canal narrowing. C5-6: Broad-based disc bulge with uncovertebral spurring, greatest left. Moderate right-sided moderate to severe left-sided neural foraminalnarrowing. Mild central canal stenosis. C6-C7: Broad-based disc osteophyte complex with uncovertebral spurring. Xkrh-fq-zaungumk right moderate severe left neural foraminal narrowing. Dkze-oa-gejzeaxq canal narrowing. C7-T1: Minimal vertebral hypertrophy. Moderate facet arthropathy. [place] patent. Mild foraminal narrowing. MR/MR cervical spine wo con IMPRESSION: Overall multilevel degenerative changes with up to ehue-ee-finfxuqfoxusukq canal narrowing. Multilevel foraminal encroachment as noted above. Impression dictated by: Mushtaq Antony M.D. 02/05/2025 12:16 PM Dictation Location: [place] [address] Electronically authenticated by: [id number] Y Date: 2:16 Dictated By: Mushtaq Antony M.D. Signed By:02/05/25 1218 DD/ 1216 TD/TT: Door Attendant: us Generic External Data Provider IMG MRI PROCEDURE S Final Result documented in this encounter Visit Diagnoses Not on filedocumented in this encounter Additional Health Concerns Active Problems Noted Date Diagnosed Date Patient on antidepressant monitoring plan 2023 Assessment Noted Time PHQ-9 Depression Total Score: 21 025 9:29 AM EDT documented as of this encounter Care Teams Security Solutions Architect Relationship Specialty Start Date End Date Molina De Anda MD [address] [place] [address] PCP - General Family Medicine 02/21/24 Valerie Groves NP [address] [place] [address] Nurse Practitioner Family Medicine 02/21/24 Karime Dias PMHNP- 112 [facility] [place] [address] Nurse Practitioner Behavioral Health 01/22/25 documented as of this encounter
--- OUTSIDE RECORDS SUMMARY | 2025-02-19 09:56 | XMS_ITS | Encounter Summary ---
Author Organization [facility] Address [address] [place] [address] Care Team Providers Care Iron Handler Name Role Phone Molina De Anda MD Primary Care Provider [phone] Valerie Groves BUSINESS OPERATIONS DIRECTOR Unavailable [phone] [facility] + [phone] Encounter Details Date Type Department Care Team (Late st Contact Info) Description 02/18/2025 Abstract [facility] [address] [place] [address] Pascale Arana NP [address] [place] [address] Social History Tobacco Use Types Packs/Day Years [...] Recorded Patient Health Questionnaire-2 Score 5 01/22/2025 [facility] Occupat ional [facility] [...] Visit [facility] 112 [facility] [address] [place] [address] Karime Dias [facility] 112 [facility] 160 [place] [address] 02/25/2025 11:30 AM EDT Office Visit [facility] [address] [place] [address] Pascale Arana NP [address] [place] [address] 03/06/2025 3:00 PM EDT Social Work [facility] [address] [place] [address] [place] [address] Rohan Burns LPC documented as of this [...] documented as of this encounter Care Teams Iron Handler Relationship Specialty Start Date End Date Molina De Anda MD [address] [place] [address] PCP - General Family Medicine 02/21/24 Valerie Groves NP [address] [place] [address] Nurse Practitioner Family Medicine 02/21/24 Karime Dias [facility] [address] [place] [address] [place] [address] Nurse Practitioner Behavioral Health 01/22/25 documented as of this encounter
--- OUTSIDE RECORDS SUMMARY | 2025-02-19 09:56 | XMS_ITS | Encounter Summary ---
Author Organization [facility] Address [address] [place] [address] Care Team Providers Care Product Manager Financial Services Name Role Phone Molina De Anda MD Primary Care Provider [phone] Valerie Groves ARTIFICIAL STONE SETTER Unavailable [phone] Karime Dias PMHNP- Unavailable + [phone] Encounter Details Date Type Department Care Team [...] often do you attend chur ch or oriental orthodox services? Never 08/07/2023 Do you belong to any clubs o r organizations such as restorationist groups, unions, fraternal or athletic groups, or [...] Recorded Patient Health Questionnaire-2 Score 5 01/22/2025 [facility] - Occupational Stress Questionnaire Answer [...] [facility] [address] [facility] [address] [place] [address] Karime Dias [facility] [address] [facility] [address] [place] [address] 02/25/2025 11:30 AM EDT Office Visit [facility] [address] [address] Pascale Arana, MARY JO [address] [place] [address] 03/06/2025 3:00 PM EDT Social Work [facility] [address] [facility] [address] [place] [address] Rohan Burns LPC documented as of this [...] EDT Narrative 02/05/2025 2:21 [place] [address] Magnetic Resonance Report Signed Patient: TALIA RUTHERFORD MR#: [id number] : 1970 Acct:[id number] Age/Sex: 54 / F ADM Date: 02/04/25 Loc: MRI Attending Dr: Bandar Nguyễn M.D. Ordering Physician: Bandar Nguyễn M.D. Date of Service: 02/04/25 Procedure(s): MR lumbar spine wo con Accession Number(s): [id number] cc: Pascale Arana ARTIFICIAL STONE SETTER; Bandar Nguyễn M.D. The [place] [id number] Patient Name: TALIA RUTHERFORD MRN: [id number] date: 1970 Sex: F Assigned Patient Location: MRI Current Patient Location: Accession/Order Number: [id number] Exam Date: 02/05/2025 12:16 Report Date: 02/05/2025 [...] Circumferential disc bulge with moderate facet arthropathy. Vyji-dz-srfnwsrh right-sided and mild left-sided neural foraminal narrowing . 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 Impression dictated by: Mushtaq Antony M.D. 02/05/2025 2:18 PM Dictation Location: [place] [address] Electronically authenticated by: [id number] Y Date: 02/05/2025 14:18 Dictated By: Mushtaq Antony M.D. Signed By: 02/05/25 1421 DD/ 1418 TD/TT: Sod Cutter: Procedure Note Radiology, Radiologist, MD - 02/05/2025 [place] [address] Magnetic Resonance Report Signed Patient: TALIA RUTHERFORD [facility]#: [id number] : 1970Acct:[id number] Age/Sex: 54 / FADM Date: 02/04/25 Loc: MRI Attending Dr: Bandar Nguyễn M.D. Ordering Physician: Bandar Nguyễn M.D. Date of Service: 02/04/25 Procedure(s): MR lumbar spine wo con Accession Number(s): [id number] cc: Pascale Arana ARTIFICIAL STONE SETTER; Bandar Nguyễn M.D. The [place] [id number] Patient Name: TALIA RUTHERFORD MRN: [id number] date: 1970 Sex: F Assigned Patient Location: MRI Current Patient Location: Accession/Order Number: [id number] Exam Date: 02/05/2025 12:16 Report Date: 02/05/2025 [...] Circumferential disc bulge with moderate facet arthropathy. Fjie-jb-cnkpetor right-sided and mild left-sided neural foraminalnarrowing . 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 Impression dictated by: Mushtaq Antony M.D. 02/05/2025 2:18 PM Dictation Location: [place] [address] Electronically authenticated by: [id number] Y Date: 4:18 Dictated By: Mushtaq Antony M.D. Signed By:02/05/25 1421 DD/ 1418 TD/TT: Sod Cutter: us Generic External Data Provider [facility] Final Result documented in this encounter Visit Diagnoses Not on filedocumented in this encounter Additional Health Concerns Active Problems Noted Date Diagnosed Date Patient on antidepressant monitoring plan 2023 Assessment Noted Time PHQ-9 Depression Total Score: 21 025 9:29 AM EDT documented as of this encounter Care Teams Product Manager Financial Services Relationship Specialty Start Date End Date Molina De Anda MD [address] [place] [address] PCP - General Family Medicine 02/21/24 Valerie Groves NP [address] [place] [address] Nurse Practitioner Family Medicine 02/21/24 Karime Dias [facility] [address] [place] [address] [place] [address] Nurse Practitioner Behavioral Health 01/22/25 documented as of this encounter
--- OUTSIDE RECORDS SUMMARY | 2025-02-19 09:56 | XMS_ITS | Encounter Summary ---
Author Organization [facility] Address [address] [place] [address] Care Team Providers Care Water Superintendent Name Role Phone Molina De Anda MD Primary Care Provider [phone] Valerie Groves MAT TESTER Unavailable [phone] Karime Dias [facility]- Unavailable + [phone] Reason for Visit * Reason Comments Med Refill Encounter Details Date Type Department Care Team (Late st Contact Info) Description 02/11/2025 Refill [facility] [address] [place] [address] Pascale Arana NP [address] [place] [address] UTI (urinary tract infection), uncomplicated; Class 1 [...] Recorded Patient Health Questionnaire-2 Score 5 01/22/2025 [facility] [place] of Occupat ional Health - Occupational Stress [...] Office Visit [facility] 112 [facility] [address] [place] [address] Karime Dias [facility] 112 [facility] [address] [place] [address] 02/25/2025 11:30 AM EDT Office Visit [facility] [address] [place] [address] Pascale Arana NP [address] [place] [address] 03/06/2025 3:00 PM EDT Social Work [facility] [address] [facility] [place] [address] Rohan Burns LPC documented as of this [...] as of this encounter Care Teams Water Superintendent Relationship Specialty Start Date End Date Molina De Anda MD [address] [place] [address] PCP - General Family Medicine 02/21/24 Valerie Groves NP [address] [place] [address] Nurse Practitioner Family Medicine 02/21/24 Karime Dias [facility] 112 [facility] [address] [place] [address] Nurse Practitioner Behavioral Health 01/22/25 documented as of this encounter
--- OUTSIDE RECORDS SUMMARY | 2025-02-19 09:57 | XMS_ITS | Encounter Summary ---
Author Organization [facility] Address [address] [place] [address] Care Team Providers Care Director Of Institutional Giving Name Role Phone Molina De Anda MD Primary Care Provider [phone] Valerie Groves CERTIFIED ORTHOTIST PRACTICE MANAGER Unavailable [phone] + [phone] Encounter Details Date Type Department Care Team (Late st Contact Info) Description 01/20/2025 Abstract [facility] [address] [place] [address] Pascale Arana NP [address] [place] [address] Social History Tobacco Use Types Packs/Day Years [...] How often do you attend chur or rastafarian services? Never 08/07/2023 Do you belong to any clubs o r organizations such as confucianism groups, unions, fraternal or athletic groups, or [...] Recorded Patient Health Questionnaire-2 Score 5 01/22/2025 [facility] of Occupat ional Health - Occupational [...] [facility] [address] [facility] [address] [place] [address] Karime Dias PMHNP-BC [address] [place] [address] [place] [address] 02/25/2025 11:30 AM EDT Office Visit [facility] [address] [place] [address] Pascale Arana, MARY JO [address] [place] [address] 03/06/2025 3:00 PM EDT Social Work [facility] [address] [facility] [address] [place] [address] Rohan Burns LPC documented as of this [...] documented as of this encounter Care Teams Director Of Institutional Giving Relationship Specialty Start Date End Date Molina De Anda MD [address] [place] [address] PCP - General Family Medicine 02/21/24 Valerie Groves NP [address] [place] [address] Nurse Practitioner Family Medicine 02/21/24 Karime Dias [facility] [address] [facility] [address] [place] [address] Nurse Practitioner Behavioral Health 01/22/25 documented as of this encounter
--- OUTSIDE RECORDS SUMMARY | 2025-02-19 09:57 | XMS_ITS | Encounter Summary ---
Author Organization [facility] Address [address] [place] [place] [address] Care Team Providers Care Chaser Apprentice Name Role Phone Molina De Anda MD Primary Care Provider [phone] Valerie Groves OPEN HEARTH LABORER Unavailable [phone] Karime Dias [facility]- Unavailable + [phone] Reason for Visit * Reason Onset Date Comments Med Refill Letter for School/Work 02/01/2025 Encounter Details Date Type Department Care Team (Late st Contact Info) Description 02/01/2025 Refill [facility] [address] [address] Pascale Arana NP [address] [place] [address] Bipolar disorder with severe depression (HCC) Social [...] Recorded Patient Health Questionnaire-2 Score 5 01/22/2025 [facility] [place] of Occupat ional Health - Occupational Stress [...] [address] [place] [address] [place] [address] Karime Dias [facility] 112 [facility] [address] [place] [address] 02/25/2025 11:30 AM EDT Office Visit [facility] [address] [place] [address] Pascale Arana, MARY JO [address] [place] [address] 03/06/2025 3:00 PM EDT Social Work [facility] 112 [facility] [address] [place] [address] Rohan Burns LPC documented as of this [...] documented as of this encounter Care Teams Chaser Apprentice Relationship Specialty Start Date End Date Molina De Anad MD [address] [place] [address] PCP - General Family Medicine 02/21/24 Valerie Groves NP [address] [place] [address] Nurse Practitioner Family Medicine 02/21/24 Karime Dias [facility] 112 [facility] 160 [place] [address] Nurse Practitioner Behavioral Health 01/22/25 documented as of this encounter
--- OUTSIDE RECORDS SUMMARY | 2025-02-19 09:57 | XMS_ITS | Encounter Summary ---
Author Organization [facility] Address [address] [place] [address] Care Team Providers Care Brakes Inspector Name Role Phone Shaikh NITHIN Main Primary Care Provider [phone] Shaikh NITHIN Main Primary Care Provider [phone] Molina De Anda MD Primary Care Provider [phone] Valerie Groves REPAIR MECHANIC Unavailable [phone] Karime Dias [facility]- Unavailable Encounter Details Date Type Department Care Team (Late st Contact Info) Description 08/02/2023 Orders Only [facility] [address] [place] [address] Shaikh Main MD [address] [place] [address] Social History Tobacco Use Types Packs/Day Years [...] week 07/03/2023 How often do you attend [facility] or religion services? Patient declined 07/03/2023 Do you belong to any clubs o r organizations such as shinto groups, unions, fraternal or athletic groups, or [...] Recorded Patient Health Questionnaire-2 Score 6 08/03/2023 [facility] of Occupat ional Health - Occupational Stress [...] slept in a alf (including now)? No 07/03/2023 Comments Unknown Sex [...] Office Visit [facility] 112 [facility] [address] [place] [address] Karime Dias [facility]- 112 [facility] [address] [place] [address] 02/25/2025 11:30 AM EDT Office Visit [facility] [address] [place] [address] Pascale Arana NP [address] [place] [address] 03/06/2025 3:00 PM EDT Social Work [facility] [address] [place] [address] [place] [address] Rohan Burns LPC documented as of this encounter Procedures Procedure Name Priority Date/Time Associated Diagnosis Comments MISCELLANEOUS LAB TEST Routine 07/28/2023 1:49 PM EST documented in this encounter Results * - Miscellaneous Test (07/28/2023 1:49 PM EST) us Shaikh Etelvina [facility] BLOOD ORDERABLES Final Resu lt documented in this encounter Visit Diagnoses Not on filedocumented in this encounter Care Teams Brakes Inspector Relationship Specialty Start Date End Date Shaikh Main MD PCP - General Internal Medicine 04/20/23 01/07/24 Shaikh Main MD [address] [place] [address] PCP - General Internal Medicine 01/08/24 02/20/24 Molina De Anda MD [address] [place] [address] PCP - General Family Medicine 02/21/24 Valerie Groves, MARY JO [address] [place] [address] Nurse Practitioner Family Medicine 02/21/24 Karime Dias [facility]- [address] [place] [address] [place] [address] Nurse Practitioner Behavioral Health 01/22/25 documented as of this encounter
--- OUTSIDE RECORDS SUMMARY | 2025-02-19 09:57 | XMS_ITS | Encounter Summary ---
Author Organization [facility] Address [address] [place] [address] Care Team Providers Care Special Programs Director Name Role Phone Shaikh NITHIN Main Primary Care Provider [phone] Shaikh NITHIN Main Primary Care Provider [phone] Molina De Anda MD Primary Care Provider [phone] Valerie Groves PERSONNEL COUNSELOR Unavailable [phone] Karime Dias [facility]- Unavailable Encounter Details Date Type Department Care Team (Late st Contact Info) Description 08/07/2023 Orders Only [facility] [address] [place] [address] Shaikh Main MD [address] [place] [address] Social History Tobacco Use Types Packs/Day Years [...] How often do you attend chur or yazidism services? Never 08/07/2023 Do you belong to [...] Recorded Patient Health Questionnaire-2 Score 6 08/03/2023 [facility] of Occupat ional Health - Occupational Stress [...] [facility] [address] [place] [address] Karime Dias [facility] [address] [place] [address] [place] [address] 02/25/2025 11:30 AM EDT Office Visit [facility] [address] [place] [address] Pascale Arana, MARY JO [address] [place] [address] 03/06/2025 3:00 PM EDT Social Work [facility] [address] [facility] [address] [place] [address] Rohan Burns LPC documented as of this [...] documented as of this encounter Care Teams Special Programs Director Relationship Specialty Start Date End Date Shaikh Main MD PCP - General Internal Medicine 04/20/23 01/07/24 Shaikh Main MD [address] [place] [address] PCP - General Internal Medicine 01/08/24 02/20/24 Molina De Anda MD [address] [place] [address] PCP - General Family Medicine 02/21/24 Valerie Groves NP [address] [place] [address] Nurse Practitioner Family Medicine 02/21/24 Karime Dias PMHNP- [address] [place] [address] [place] [address] Nurse Practitioner Behavioral Health 01/22/25 documented as of this encounter
--- OUTSIDE RECORDS SUMMARY | 2025-02-19 09:57 | XMS_ITS | Encounter Summary ---
Author Organization [facility] Address [address] [place] [address] Care Team Providers Care Pad Hand Name Role Phone Molina De Anda MD Primary Care Provider [phone] Valerie Groves SHEET SEWER Unavailable [phone] Karime Dias [facility] Unavailable [phone] Encounter Details Date Type Department Care Team (Late st Contact Info) Description 01/22/2025 Orders Only [facility] [address] [facility] [address] [place] [id number] Karime Dias [facility]- [address] [facility] [address] [place] [address] Social [...] Recorded Patient Health Questionnaire-2 Score 5 01/22/2025 [facility] - Occupational Stress Questionnaire Answer Date [...] [facility] [address] [facility] [address] [place] [address] Karime Dias PMHNP-BC [address] [place] [address] [place] [address] 02/25/2025 11:30 AM EDT Office Visit [facility] [address] [place] [address] Pascale Arana, MARY JO [address] [place] [address] 03/06/2025 3:00 PM EDT Social Work [facility] [address] [facility] [address] [place] [address] Rohan Burns LPC documented as of this [...] documented as of this encounter Care Teams Pad Hand Relationship Specialty Start Date End Date Molina De Anda MD [address] [place] [address] PCP - General Family Medicine 02/21/24 Valerie Groves NP [address] [place] [address] Nurse Practitioner Family Medicine 02/21/24 Karime Dias [facility] [address] [place] [address] [place] [address] Nurse Practitioner Behavioral Health 01/22/25 documented as of this encounter
--- OUTSIDE RECORDS SUMMARY | 2025-02-19 09:57 | XMS_ITS | Encounter Summary ---
Author Organization [facility] Address [address] [place] [address] Care Team Providers Care Reading Instructor Name Role Phone Molina De Anda MD Primary Care Provider [phone] Valerie Groves NANOTECHNOLOGIST Unavailable [phone] [facility] Di[facility] [phone] Encounter Details Date Type Department Care Team (Late st Contact Info) Description 11/18/2024 Orders Only [facility] [address] [place] [address] Pascale Arana NP [address] [place] [address] Social History Tobacco Use Types Packs/Day Years [...] any clubs o r organizations such as congregational groups, unions, fraternal or athletic groups, or [...] Patient Health Questionnaire-2 Score 0 04/10/2024 [facility] - Occupational [...] [facility] [address] [facility] [address] [place] [address] Karime Dias [facility] [address] [facility] [address] [place] [address] 02/25/2025 11:30 AM EDT Office Visit [facility] [address] [place] [phone] Pascale Arana NP [address] [place] [address] 03/06/2025 3:00 PM EDT Social Work [facility] [address] [place] [address] [place] [address] Rohan Burns LPC documented as of this [...] (11/18/2024 2:41 PM EDT) us Pascale Arana NANOTECHNOLOGIST LAB CHG PERFORMABLES Final Resu lt documented in this encounter Visit Diagnoses Not on filedocumented in this encounter Additional Health Concerns Active Problems Noted Date Diagnosed Date Patient on antidepressant monitoring plan 2023 Assessment Noted Time PHQ-9 Depression Total Score: 23 024 4:27 PM EST documented as of this encounter Care Teams Reading Instructor Relationship Specialty Start Date End Date Molina De Anda MD [address] [place] [address] PCP - General Family Medicine 02/21/24 Valerie Groves NP [address] [place] [address] Nurse Practitioner Family Medicine 02/21/24 Karime Dias [facility] [address] [place] [address] [place] [address] Nurse Practitioner Behavioral Health 01/22/25 documented as of this encounter
--- OUTSIDE RECORDS SUMMARY | 2025-02-19 09:57 | XMS_ITS | Encounter Summary ---
Author Organization [facility] Address [address] [place] [address] Care Team Providers Care Turner Off Name Role Phone Shaikh NITHIN Main Primary Care Provider [phone] Shaikh NITHIN Main Primary Care Provider [phone] Molina De Anda MD Primary Care Provider [phone] Valerie Groves BUTTON BRADDER Unavailable [phone] Karime Dias [facility] Unavailable Encounter Details Date Type Department Care Team (Late st Contact Info) Description 08/03/2023 Orders Only [facility] [address] [place] [address] Shaikh Main MD [address] [place] [phone] Social History Tobacco Use Types Packs/Day Years [...] How often do you attend chur or temple services? Never 08/07/2023 Do you [...] Recorded Patient Health Questionnaire-2 Score 6 08/03/2023 [facility] of Occupat ional Health - Occupational Stress [...] [facility] [address] [facility] [address] [place] [address] Karime Dias [facility] [address] [facility] [address] [place] [address] 02/25/2025 11:30 AM EDT Office Visit [facility] [address] [place] [address] Pascale Arana NP [address] [place] [address] 03/06/2025 3:00 PM EDT Social Work [facility] [address] [place] [address] [place] [address] Rohan Burns LPC documented as of this [...] documented as of this encounter Care Teams Turner Off Relationship Specialty Start Date End Date Shaikh Main MD PCP - General Internal Medicine 04/20/23 01/07/24 Shaikh Main MD [address] [place] [address] PCP - General Internal Medicine 01/08/24 02/20/24 Molina De Anda MD [address] [place] [address] PCP - General Family Medicine 02/21/24 Valerie Groves NP [address] [place] [address] Nurse Practitioner Family Medicine 02/21/24 Karime Dias, PMHNP- [address] [address] Nurse Practitioner Behavioral Health 01/22/25 documented as of this encounter
--- OUTSIDE RECORDS SUMMARY | 2025-02-19 09:57 | XMS_ITS | Clinical Summary ---
Author Organization [facility] Address [address] [place] [address] Care Team Providers Care Tool Grinder Operator Name Role Phone Molina De Anda MD Primary Care Provider [phone] Valerie Groves BRIM POUNCER MACHINE OPERATOR Unavailable [phone] Karime Dias PMHNP- Unavailable [phone] Allergies Active Allergy Reactions Criticality Noted Date [...] of the risks of continued smoking: stroke, ME, all forms of cancer, lung disease, and [...] of the risks of continued smoking: stroke, ME, all forms of cancer, lung disease, and [...] of the risks of continued smoking: stroke, ME, all forms of cancer, lung disease, and [...] of the risks of continued smoking: stroke, ME, all forms of cancer, lung disease, and [...] abdominal wall 08/12/2024 11/20/2024 Overview (08/12/2024): [employer] [id number] EXP: 10/22/2026 LOT # [id number] Assessment & Plan (08/12/2024 5:50 PM EST): [...] Department Care Team Description 02/18/2025 Abstract [facility] [address] [place] [address] Pascale Arana NP 02/17/2025 Telephone [facility] [address] [place] [address] Pascale Arana NP Error (VOID this visit) 02/11/2025 Refill [facility] [address] [place] [address] Pascale Arana NP UTI (urinary tract infection), uncomplicated; Class 1 obesity due to excess calories without serious comorbidity in adult, unspecified BMI; BMI 32.0-32.9,adult 02/06/2025 Refill [facility] [address] [place] [address] Pascale Arana NP URTI (acute upper respiratory infection); Non-recurrent acute suppurative otitis media of both ears without spontaneous rupture of tympanic membranes 02/05/2025 Clinisync Result Encounter [facility] External Department Unsolicited Provider, Generic External Data 02/05/2025 Clinisync Result Encounter [facility]OMS External Department Unsolicited Provider, Generic External Data 02/01/2025 Refill [facility] [address] [place] [address] Pascale Arana NP Bipolar disorder with severe depression (HCC) 01/22/2025 9:00 AM EDT [facility] [address] [place] [address] [place] [address] Karime Dias, PMHNP- JESSIKA (generalized anxiety disorder) ; Severe episode of recurrent major depressive disorder, without psychotic features (HCC); PTSD (post-traumatic stress disorder) ; Insomnia, unspecified type; Sleep apnea, unspecified type; Encounter for drug screening; Bipolar disorder with severe depression ([facility]) 01/22/2025 Telephone [facility] [address] [place] [address] Pascale Arana, MARY JO 01/22/2025 Orders Only [facility] [address] [facility] [address] [place] [address] Karime Dias, [facility] 01/22/2025 Bamboo flowsheet [facility] [address] [facility] [address] [place] [address] Karime Dias, [facility]- 01/22/2025 Travel 01/20/2025 Abstract [facility] [address] [place] [address] Pascale Arana, MARY JO 01/15/2025 Telephone [facility] [address] [place] [address] Pascale Arana, MARY JO 01/14/2025 Clinisync Result Encounter [facility] External Department Unsolicited Pascale Arana NP 01/14/2025 Refill [facility] [address] [place] [address] Pascale Arana, MARY JO URTI (acute upper respiratory infection); Non-recurrent acute suppurative otitis media of both ears without spontaneous rupture of tympanic membranes 01/08/2025 Telephone [facility] [address] [place] [address] Pascale Arana, MARY JO 01/07/2025 Orders Only [facility] [address] [place] [address] Pascale Arana, MARY JO B12 deficiency (Primary Dx); Iron deficiency anemia secondary to inadequate dietary iron intake 01/07/2025 Telephone [facility] [address] [place] [address] Pascale Arana NP Vaginitis/Bacterial Vaginosis 01/06/2025 4:30 PM EDT Office Visit [facility] [address] [place] [address] Pascale Arana NP Bipolar disorder with severe depression (HCC) (Primary Dx); Gastroesophageal reflux disease, unspecified whether esophagitis present; Class 1 obesity due to excess calories without serious comorbidity with body mass index (BMI) of 32.0 to 32.9 in adult; Cigarette nicotine dependence without complication; Stress; Fibromyalgia; Psychophysiological insomnia 01/06/2025 Abstract [facility] [address] [place] [address] Pascale Arana NP 01/06/2025 Telephone [facility] [address] [place] [address] Pascale Arana NP 01/06/2025 Abstract [facility] [address] [place] [address] Pascale Arana NP 01/06/2025 Bamboo flowsheet [facility] [address] [place] [address] Pascale Arana NP 12/18/2024 Refill [facility] [address] [place] [address] Pascale Arana NP URTI (acute upper respiratory infection); Non-recurrent acute suppurative otitis media of both ears without spontaneous rupture of tympanic membranes 11/28/2024 Results Follow-Up [facility] [address] [place] [address] 11/20/2024 3:20 PM EDT Procedure Visit [facility] [address] [place] [address] Pascale Arana NP Well woman exam with [...] Pascale Arana NP 11/20/2024 Bamboo flowsheet [facility] [address] [place] [address] Pascale Arana NP from Last 3 Months [...] Recorded Patient Health Questionnaire-2 Score 5 01/22/2025 [facility] - Occupational Stress Questionnaire Answer Date [...] Visit [facility] [address] [facility] [address] [place] [address] Karime Dias, PMHNP- [address] [facility] [address] [place] [address] 02/25/2025 11:30 AM EDT Office Visit [facility] [address] [place] [address] Pascale Arana, MARY JO [address] [place] [address] 03/06/2025 3:00 PM EDT Social Work [facility] [address] [place] [address] [place] [address] Rohan Burns, EH Health Maintenance Due Date Last Done [...] EDT Narrative 02/05/2025 2:21 [place] [address] Magnetic Resonance Report Signed Patient: TALIA RUTHERFORD MR#: [id number] : 1970 Acct:[id number] Age/Sex: 54 / F ADM Date: 02/04/25 Loc: MRI Attending Dr: Bandar Eden M.D. Ordering Physician: Bandar Eden M.D. Date of Service: 02/04/25 Procedure(s): MR lumbar spine wo con Accession Number(s): [id number] cc: Pascale Arana BRIM POUNCER MACHINE OPERATOR; Bandar Eden M.D. The [place] [id number] Patient Name: TALIA RUHTERFORD MRN: [id number] date: 1970 Sex: F Assigned Patient Location: MRI Current Patient Location: Accession/Order Number: [id number] Exam Date: 02/05/2025 12:16 Report Date: 02/05/2025 [...] Circumferential disc bulge with moderate facet arthropathy. Nlby-ez-hbjojbyq right-sided and mild left-sided neural foraminal narrowing . 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 Impression dictated by: Mushtaq Antony M.D. 02/05/2025 2:18 PM Dictation Location: [place] [address] Electronically authenticated by: [id number] Y Date: 02/05/2025 14:18 Dictated By: Mushtaq Antony M.D. Signed By: 02/05/25 1421 DD/ 1418 TD/TT: Cloth Laminating Supervisor: Procedure Note Radiology, Radiologist, MD - 02/05/2025 [place] [address] Magnetic Resonance Report Signed Patient: TALIA RUTHERFORD DMR#: [id number] : 1970Acct:[id number] Age/Sex: 54 / FADM Date: 02/04/25 Loc: MRI Attending Dr: Bandar Eden M.D. Ordering Physician: Bandar Eden M.D. Date of Service: 02/04/25 Procedure(s): MR lumbar spine wo con Accession Number(s): [id number] cc: Pascale Arana NP; Bandar Eden M.D. [place] [address] Patient Name: TALIA RUTHERFORD MRN: [id number] date: 1970 Sex: F Assigned Patient Location: MRI Current Patient Location: Accession/Order Number: [id number] Exam Date: 02/05/2025 12:16 Report Date: 02/05/2025 [...] Circumferential disc bulge with moderate facet arthropathy. Spqd-ab-yzbpivbs right-sided and mild left-sided neural foraminalnarrowing . 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 Impression dictated by: Mushtaq Antony M.D. 02/05/2025 2:18 PM Dictation Location: [place] [address] Electronically authenticated by: [id number] Y Date: 4:18 Dictated By: Mushtaq Antony M.D. Signed By:02/05/25 1421 DD/ 1418 TD/TT: Cloth Laminating Supervisor: us Generic External Data Provider [facility] IMAGING Final Result * MR cervical spine wo contrast (02/05/2025 12:16 PM EDT) Anatomical Region Laterality Modality Spine, C-spine Magnetic Resonan ce 02/05/2025 12:1 6 PM EDT Narrative 02/05/2025 12:18 [place] [address] Magnetic Resonance Report Signed Patient: TALIA RUTHERFORD MR#: [id number] : 1970 Acct:[id number] Age/Sex: 54 / F ADM Date: 02/04/25 Loc: MRI Attending Dr: Bandar Eden M.D. Ordering Physician: Bandar Eden M.D. Date of Service: 02/04/25 Procedure(s): MR cervical spine wo con Accession Number(s): [id number] cc: Pascale Arana NP; Bandar Eden M.D. The [place] [address] Patient Name: TALIA RUTHERFORD MRN: [id number] date: 1970 Sex: F Assigned Patient Location: MRI Current Patient Location: Accession/Order Number: [id number] Exam Date: 02/05/2025 12:10 Report Date: 02/05/2025 [...] Uncovertebral spurring greatest right. Moderate right and qoqu-ll-zxqalzwc left-sided neural foraminal narrowing. Mild canal narrowing. C5-6: Broad-based disc bulge with uncovertebral spurring, greatest left. Moderate right-sided moderate to severe left-sided neural foraminal narrowing. Mild central canal stenosis. C6-C7: Broad-based disc osteophyte complex with uncovertebral spurring. Foyn-fu-jwyulfzq right moderate severe left neural foraminal narrowing. Xdqn-sl-jkrrimul canal narrowing. C7-T1: Minimal vertebral hypertrophy. Moderate facet arthropathy. Canal and patent. Mild foraminal narrowing. MR/MR cervical spine wo con IMPRESSION: Overall multilevel degenerative changes with up to ikgl-pa-dlufripa central canal narrowing. Multilevel foraminal encroachment as noted above. Impression dictated by: Mushtaq Antony M.D. 02/05/2025 12:16 PM Dictation Location: [place] [address] Electronically authenticated by: [id number] Y Date: 02/05/2025 12:16 Dictated By: Mushtaq Antony M.D. Signed By: 02/05/25 1218 DD/ 1216 TD/TT: Cloth Laminating Supervisor: Procedure Note Radiology, Radiologist, MD - 02/05/2025 [place] [address] Magnetic Resonance Report Signed Patient: TALIA RUTHERFORD [facility]#: [id number] : 1970Acct:[id number] Age/Sex: 54 / FADM Date: 02/04/25 Loc: MRI Attending Dr: Bandar Eden M.D. Ordering Physician: Bandar Eden M.D. Date of Service: 02/04/25 Procedure(s): MR cervical spine wo con Accession Number(s): [id number] cc: Pascale Arana NP; Bandar Eden M.D. [place] [address] Patient Name: TALIA RUTHERFORD MRN: [id number] date: 1970 Sex: F Assigned Patient Location: MRI Current Patient Location: Accession/Order Number: [id number] Exam Date: 02/05/2025 12:10 Report Date: 02/05/2025 [...] Uncovertebral spurring greatest right. Moderate right and aikm-xc-xcddezpt left-sided neural foraminal narrowing. Mild canal narrowing. C5-6: Broad-based disc bulge with uncovertebral spurring, greatest left. Moderate right-sided moderate to severe left-sided neural foraminalnarrowing. Mild central canal stenosis. C6-C7: Broad-based disc osteophyte complex with uncovertebral spurring. Upkl-yj-taddscdg right moderate severe left neural foraminal narrowing. Wuzl-ih-mmyrfspl canal narrowing. C7-T1: Minimal vertebral hypertrophy. Moderate facet arthropathy. [place] patent. Mild foraminal narrowing. MR/MR cervical spine wo con IMPRESSION: Overall multilevel degenerative changes with up to ztyw-pe-htsukkowvggxifj canal narrowing. Multilevel foraminal encroachment as noted above. Impression dictated by: Mushtaq Antony M.D. 02/05/2025 12:16 PM Dictation Location: [place] [address] Electronically authenticated by: [id number] Y Date: 2:16 Dictated By: Mushtaq Antony M.D. Signed By:02/05/25 1218 DD/ 1216 TD/TT: Cloth Laminating Supervisor: us Generic External Data Provider IMG MRI PROCEDURE S Final Result * (ABNORMAL) VITAMIN B12 (01/14/2025 12:49 PM EDT) Pathologist [facility] VITAMIN B12 >2000(A) 232 - 1245 pg/mL TBH Comment: Performed at: [address] [id number] Senior Process Analyst: Hector Franco PhD, Phone: [phone] 01/14/2025 12:4 9 PM EDT 01/14/2025 12:50 PM EDT Narrative [facility] - 01/15/2025 4:07 AM EDT us Pascale Arana BRIM POUNCER MACHINE OPERATOR LAB BLOOD ORDERABLES Final Resu lt Performing Organization Address [facility]/ZIP Co de Phone Number [facility] * TRANSFERRIN (01/14/2025 12:49 PM EDT) [facility] TRANSFERRIN 296 192 - 364 mg/dL [facility]H Comment: Performed at: [address] [id number] Senior Process Analyst: Hector Franco PhD, Phone: [phone] 01/14/2025 12:4 9 PM EDT 01/14/2025 12:50 PM EDT Narrative CLIN[facility] - 01/15/2025 5:07 AM EDT us Pascale Arana BRIM POUNCER MACHINE OPERATOR LAB BLOOD ORDERABLES Final Resu lt Performing Organization Address City/[facility]/ZIP Co de Phone Number [facility] * METRO IRON AND TIBC (01/14/2025 12:49 PM EDT) [facility] IRON 54.0 50.0 - 170.0 ug/dL TB[facility] TOTAL IRON BINDING CAPACITY 387.0 250.0 - 450.0 ug/dL [facility] PERCENT IRON SATURATION 14.0 % [facility] 01/14/2025 12:4 9 PM EDT 01/14/2025 12:50 PM EDT Narrative CLIN[facility]YNC - 01/14/2025 1:50 PM EDT Pascale Arana BRIM POUNCER MACHINE OPERATOR CLINIS[facility]NC Final Result [facility] TB * [facility] FERRITIN (01/14/2025 12:49 PM EDT) [facility] FERRITIN 10.0 8.0 - 252.0 ng/mL TB 01/14/2025 12:4 9 PM EDT 01/14/2025 12:50 PM EDT Narrative CLINISYNC - 01/14/2025 2:05 PM EDT Pascale Arana BRIM POUNCER MACHINE OPERATOR CLINIS[facility]NC Final Result [facility] TB * (ABNORMAL) ALL CBC WITH AUTO DIFF (01/14/2025 12:49 PM EDT) [facility] TB WBC 6.1 4.0 - [...] 1:00 PM EDT us Pascale Arana NP CLIN[facility] Final Result [facility] LICENSE [facility] * (ABNORMAL) IGP,APTIMA HPV,AGE GDLN (11/20/2024 4:05 PM EDT) Pathologist [facility] AGE GDLN ACOG TESTING Note . [facility] Comment: TESTS RESULT FLAG UNITS REF RANGE LAB Clinician Provided Cytology Information Source.............Cervix;Endocervix No. of containers..01 ThinPrep Vial Age Algo ACOG Fiorella... 30-65 01 FLAG LEGEND: L-Low Normal,H-High Normal,LL-Alert Low,HH-Alert High <-Panic Low,>-Panic High,A-Abnormal,AA-Critical Abnormal Performed at: 01 =[facility] [address] [facility] [place] [address] Monika Norton MD, IGP, APTIMA HPV, RFX 16/18,45 Note . [facility] Comment: TESTS RESULT FLAG UNITS REF RANGE LAB DIAGNOSIS: 02 NEGATIVE FOR INTRAEPITHELIAL LESION OR MALIGNANCY. Specimen adequacy: 02 Satisfactory for evaluation. Endocervical and/or squamous metaplastic cells (endocervical component) are present. Performed by: Suresh Guerrero, Drilling Supervisor . 02 Note: Note 02 The Pap [...] <-Panic Low,>-Panic High,A-Abnormal,AA-Critical Abnormal Performed at: [address] [address] Monika Norton MD, HPV APTIMA Positive(A) Negative [facility] Comment: This nucleic acid amplification test detects fourteen high- risk HPV types (16,18,31,33,35,39,45,51,52,56,58,59,66,68) without differentiation. HPV GENOTYPE 16 Negative Negative [facility] HPV GENOTYPE 18,45 Negative Negative [facility] Comment: Performed at: =[address] [id number] Senior Process Analyst: Monika Norton MD, Phone: [phone] Performed at: [address] [id number] Senior Process Analyst: Monika Norton MD, Phone: [phone] 11/20/2024 4:05 PM EDT 11/21/2024 7:10 AM EDT Narrative MATTIE - 11/26/2024 8:08 PM EDT BRUSH-ALONE CERVIX ENDOCERVIX us Pascale Arana NP LAB BLOOD ORDERABLES Final Resu lt [facility] * MM TOMOSYNTHESIS SCREENING BI (10/23/2024 3:55 PM EDT) Anatomical Region Laterality Modality Other 10/23/2024 3:55 PM EDT Narrative 10/23/2024 3:55 PM EDT The [address] [address] Mammography Report Signed Patient: TALIA RUTHERFORD MR#: [id number] : 1970 Acct:[id number] Age/Sex: 54 / F ADM Date: 10/23/24 Loc: MAMMO Attending Dr: Pascale Arana NP Ordering Physician: Pascale Arana NP Results: Date of Service: 10/23/24 Follow Up: Procedure(s): MM tomosynthesis screening BI Accession Number(s): [id number] cc: Pasclae Arana NP Patient Name: TALIA RUTHERFORD MR#: [id number] : 1970 Exam Date: 10/23/2024 Ordering Doctor: [...] breast cancer at age 51. LOCATION: [facility] BREAST COMPOSITION: There are scattered areas [...] Signed By: 10/23/24 1555 DD/ 1555 TD/TT: Cloth Laminating Supervisor: Procedure Note Radiology, Radiologist, MD - 10/23/2024 [place] [address] Mammography Report Signed Patient: TALIA RUTHERFORD DMR#: [id number] : 1970Acct:[id number] Age/Sex: 54 / FADM Date: 10/23/24 Loc: MAMMO Attending Dr: Pascale Arana NP Ordering Physician: Pascale Arana NPResults: Date of Service: 10/23/24Follow Up: Procedure(s): MM tomosynthesis screening BI Accession Number(s): [id number] cc: Pascale Arana NP Patient Name: TALIA RUTHERFORD MR#: [id number] : 1970 Exam Date: 10/23/2024 Ordering Doctor: JASON Arana [facility] REPORT PROCEDURE: MM TOMOSYNTHESIS SCREENING BI COMPARISON: None. INDICATIONS: Screening Calculator Name NCI Breast Cancer Risk Assessment Tool 5 Year Breast Cancer Risk 0.80% Lifetime Breast Cancer Risk 6.20% Personal Breast Cancer No Personal Ovarian Cancer No Treatments None Family Cancers Grandmother-maternal with breast cancer at age 50; Aunt-maternal with breast cancer at age 50. LOCATION: [facility] BREAST COMPOSITION: There are scattered areas [...] M.D. Signed By:10/23/24 1555 DD/ 1555 TD/TT: Cloth Laminating Supervisor: Pascale Arana NP [facility] IMAG[facility] Final Result from Last 3 Months or Most Recently Relevant to Health Maintenance Additional Health Concerns Active Problems Noted Date Diagnosed Date Patient on antidepressant monitoring plan 2023 Insurance [employer] Care Teams Tool Grinder Operator Relationship Specialty Start Date End Date Molina De Anda MD [address] [place] [phone] PCP - General Family Medicine 02/21/24 Valerie Groves NP [address] [place] [address] Nurse Practitioner Family Medicine 02/21/24 Karime Dias PMHNP- [address] [place] [address] [place] [address] Nurse Practitioner Behavioral Health 01/22/25
--- OUTSIDE RECORDS SUMMARY | 2025-02-19 09:57 | XMS_ITS | Clinical Summary ---
Author Organization [employer] Address [facility] [address] [place] [address] Care Team Providers Care Occupational Health And Safety Adviser Name Role Phone No Pcp, No Pcp Primary Care Provider Unavailabl e Allergies Active Allergy Reactions Criticality Noted Date Comments Penicillins Hives 02/08/2023 Medications sod sulf-pot chloride-mag sulf 1.479-0.188- 0.225 gram tablet See instructional sheet given by office. Patient was given a [employer] voucher to use, this is not to [...] Visit [facility] [address] [place] [address] Leslye Muniz, Cystocele with second [...] [facility] [address] [place] [address] [place] [address] Tania Asif MD [address] [facility] [address] [place] [address] Health Maintenance Due Date Last Done Comments Tobacco Counseling 1970 Depression Screening 1983 Adult BMI Follow Up Plan 1989 DTaP,Tdap and Td Vaccines (1 - Tdap) 1990 Pap Smear 1992 Zoster (Shingles) Vaccine (1 of 2) 2021 Influenza Vaccine 03/24/2025 Adult BMI Screening 02/06/2026 02/06/2025 Tobacco Screening 02/06/2026 02/06/2025 Medical Devices Not on file Insurance [employer] Care Teams Occupational Health And Safety Adviser Relationship Specialty Start Date End Date No Pcp, No Pcp SE[place] Stephen [id number] PCP - General Family Medicine 11/21/18
--- OUTSIDE RECORDS SUMMARY | 2025-02-19 09:57 | XMS_ITS | Encounter Summary ---
Author Organization [facility] Address [address] [place] [address] Care Team Providers Care Facilities And Grounds Director Name Role Phone Molina De Anda MD Primary Care Provider [phone] Valerie Groves ORTHOPEDICS PEDIATRIC PHYSICIAN Unavailable [phone] Karime Dias HNP- Unavailable [phone] Encounter Details Date Type Department Care Team (Late st Contact Info) Description 02/29/2024 Orders Only [facility] [address] [place] [address] Valerie Groves NP Social History Tobacco Use [...] How often do you attend chur or jewish services? Never 08/07/2023 Do you belong to [...] Questionnaire-2 Score 0 02/28/2024 [facility] Answer Date [...] [facility] [address] [facility] [address] [place] [address] [facility] [address] [facility] [address] [place] [address] 02/25/2025 11:30 AM EDT Office Visit [facility] [address] [place] [address] Pascale Arana NP [address] [place] [address] 03/06/2025 3:00 PM EDT Social Work [facility] [address] [facility] [address] [place] [address] Rohan Burns LPC documented as of this [...] Laterality Modality Radiographic Maeve ging Valerie Groves ORTHOPEDICS PEDIATRIC PHYSICIAN IMG XR PROCEDURES Final Result documented in this encounter Visit Diagnoses Not on filedocumented in this encounter Additional Health Concerns Active Problems Noted Date Diagnosed Date Patient on antidepressant monitoring plan 2023 Assessment Noted Time PHQ-9 Depression Total Score: 23 024 4:27 PM EST documented as of this encounter Care Teams Facilities And Grounds Director Relationship Specialty Start Date End Date Molina De Anda MD [address] [place] [address] PCP - General Family Medicine 02/21/24 Valerie Groves NP [address] [place] [address] Nurse Practitioner Family Medicine 02/21/24 Karime Dias [facility] [address] [place] [address] [place] [address] Nurse Practitioner Behavioral Health 01/22/25 documented as of this encounter
--- OUTSIDE RECORDS SUMMARY | 2025-02-19 09:57 | XMS_ITS | Encounter Summary ---
Author Organization [employer] Address [id number] [address] [place] [address] Care Team Providers Care Credit Specialist Name Role Phone No Pcp, No Pcp Primary Care Provider Unavailpedro e Encounter Details Date Type Department Care Team (Late st Contact Info) Description 02/13/2023 Telephone [facility] [address] [place] [address] Segun Keene DO [address] [place] [address] Social History Tobacco Use Types [...] office visit;just set up for colonsocopy at [facility] for anemis. I don't need to see he agian. Saw her today!!! * Telephone Encounter - Alberta Millan - 02/13/2023 11:36 AM EDT Talia called the office to try to reschedule her appointment, I informed her that Dr. Jassi fraga her set up for a colonoscopy at [facility]. Told Talia that our surgery schedulerwill call her back to schedule that with her. * Telephone Encounter - SUGEY Loyd - 02/13/2023 11:36 AM EDT I called Talia and scheduled colonoscopy at [facility] for 03/08/23. The patient is coming in tomorrow 02/14/23 to sign papers and go over bowel prep. I will send Dr. Keene a message to put in orders for this procedure and email everything over to Anh at the [facility]. documented in this encounter Plan of Treatment Upcoming Encounters Date Type Department Care Team (Late st Contact Info) Description 04/02/2025 3:00 PM EDT Office Visit [facility] - [facility] [address] [place] [address] Tania Asif MD [address] [place] [address] documented as of this encounter Visit Diagnoses Not on filedocumented in this encounter Care Teams Credit Specialist Relationship Specialty Start Date End Date No Pcp[place] [address] PCP - General Family Medicine 11/21/18 documented as of this encounter
--- NOTE | 2025-02-19 10:09 | XR_ITS ---
[facility] [place] [id number] Patient Name: KALYN RUTHERFORD MRN: [id number] date: 1970 Sex: F Assigned Patient Location: [facility] Current Patient Location: [facility] Accession/Order Number: [id number] Exam Date: 02/19/2025 10:39 Report Date: 02/19/2025 15:03 At the request of: MICHAEL LAZAR Procedure: XR foot LT min 3V LEFT FOOT - 3 views CLINICAL HISTORY: Left foot arthritis COMPARISON: Left foot 09/04/2024 FINDINGS: Mild soft tissue swelling is present. Bones are grossly demineralized. Hardware fixation is seen involving the second and third tarsometatarsal junctions without evidence of hardware complication. Scattered mild degenerative changes with plantar spurring. No bony erosions. XR/XR foot LT min 3V IMPRESSION: MILD SOFT TISSUE SWELLING WITHOUT ACUTE BONY PROCESS OR HARDWARE COMPLICATION. MILD SCATTERED DEGENERATIVE CHANGE WITH PLANTAR SPURRING. Impression dictated by: Merlin Massey Jr., DConsueloOConsuelo 02/19/2025 3:03 PM Dictation Location: [place] [address] Electronically authenticated by: [id number] Y Date: 02/19/2025 15:03
== END 2025-02-19 09:54 | disposition home or self-care (01) ==
LOC: RAD 09:54
PROVIDERS: PCP Nurse Practitioner; Visit Provider Physician Assistant
DX: M13.872 Other specified arthritis, left ankle and foot (principal); L97.529 Non-pressure chronic ulcer of other part of left foot with unspecified severity; M79.89 Other specified soft tissue disorders; L97.522 Non-pressure chronic ulcer of other part of left foot with fat layer exposed
CPT/HCPCS: 73630; G0463

== ENCOUNTER 2025-02-20 15:28 | Outpatient (OUT) | payer OTHER, SELFPAY ==
--- OUTSIDE RECORDS SUMMARY | 2019-11-19 07:15 | XMS_ITS | Continuity of Care Document ---
Author Organization [facility] [employer] [facility] Address [address] [facility] [place] [address] Phone Care Team Providers Care Graphics Coordinator Name Role Phone Bernardo WELLER, Mathew Early Unavailable Procedures Procedure Date POSTOP FOLLOW-UP VISIT POSTOP FOLLOW-UP VISIT Gastric Bypass LAP GASTRIC BYPASS/YOUSUF-EN-Y OFFICE/OUTPATIENT VISIT, EST OFFICE/OUTPATIENT VISIT, NEW Advance Directives Directive Yes / No Effective Date File Name No Information Encounters Encounter Description Practice Location Reason(s) For Visit Diagnoses Date Provider Providers Copied on Encounter [facility] [employer] [employer] [facility], [address] [place] [address], [id number], tel:[phone] [facility] No Information Bernardo Carmona. [address], [id number], [place]. tel:[phone] Referring Provider: Mathew Boudreaux, [address], [address]. tel:[phone] [facility], [address] [place] [address], [id number], tel:[phone] [facility] No Information Laci Londono. [address] [facility] [address], [place], [id number], [place]. tel:[phone] Referring Provider: Spring Aguero, [address] [facility] [address], [place], [address]. tel:[phone] [facility] [employer] [facility], [address] [place] [address] [address], [place], [place], [id number], [place] tel:[phone] [facility] IP No Information Laci Londono. [address], [place], [place], [id number], [place]. tel:[phone] Referring Provider: Spring Aguero, [address] [facility] [address], [place], [address]. tel:[phone] [facility] [employer] [facility], [address] [place] [address] [address], [place], [place], [id number], [place] tel:[phone] [facility] IP No Information Bernardo Carmona. [address] [facility] [address], [place], [place], [id number], [place]. tel:[phone] Referring Provider: Mathew Boudreaux, [address] [facility] [address], [place], [address]. tel:[phone] OFFICE/OUTPATI ENT VISIT, [facility] [employer] [facility], [address] [facility] [address], [place], [place], [id number], [place] tel:[phone] [facility] No Information Bernardo Carmona. [address] [facility] [address], [place], [place], [id number], [place]. tel:[phone] Referring Provider: Mathew Boudreaux, [address] [facility] [address], [place], [address]. tel:[phone] OFFICE/OUTPATI ENT VISIT, [facility] [employer] [facility], [address] [place] [address] [address], [place], [place], [id number], [place] tel:[phone] [facility] No Information Bernardo Carmona. [address] [facility] [address], [place], [place], [id number], [place]. tel:[phone] Referring Provider: Mathew Boudreaux, [address] [facility] [address], [place], [address]. tel:[phone] Family History Family Member Type Diagnosis Age At Onset No Information Payers Payer name Insurance type Covered democrat ID Bijal elmore(anastasiia Ruiz [id number] Social History Type Description Quantity Date Captured [...]
--- OUTSIDE RECORDS SUMMARY | 2024-09-04 11:15 | XMS_ITS ---
Author Organization [facility] in [place] Address [address] [place] [address] Care Team Providers Care Heat Treat Technician Name Role Phone None, Unknown or Primary Care Provider Unavailab Mathew Lee Unavailable [phone] Allergies Allergen (clinical drug ingredient) Drug/Non Drug [...] Problem Status W/U Status Risk Notes Problem [id number] Primary osteoarthrit is, left ankle and foot (M19.072) Active confirmed Vital Signs Heart Rate 84 /min 09/04/2024 Respiratory Rate 16 /min 09/04/2024 Oximetry 98 % 09/04/2024 Encounters Encounter Location Date Provider Diagnosis [facility] [employer] (PODIATRY) [address] [place] [address] [place] [address] 09/04/2024 Mathew Hoff Pain due to internal [...] * Talia RUTHERFORDDOB:[birth year] (54 yo F)Acc No.[id number]:09/04/2024 Follow Up Patient: Talia FREED Provider: Miguel Hoff DPM, MS :1970 A ge:54 Y S ex:Female Date:09/04/2024 Address:[address] [place], [id number] Pcp:Unknown or None Check In:03:07 PM ESTCheck [...] M usculoskeletal: Bone/Joint Symptoms d enies. C retirement Pain d enies.?Leg cramps d enies. N [...] 09/04/2024 Generated for Taina marina/Nhi/Josiasitting on: 0 02/20/2025 03:32 PM EDT History and Physical Notes * [...]
--- OUTSIDE RECORDS SUMMARY | 2024-09-04 11:53 | XMS_ITS ---
Author Organization [facility] in [place] Address [address] [place] [address] Care Team Providers Care Cra Officer Name Role Phone None, Unknown or Primary Care Provider Unavailab Mathew Lee [phone] REASON FOR VISIT meds Medications Medication SIG (Take, Route, Fr equency, Duration) Notes Start Date End Date Status Meloxicam 15 MG 1 tablet Orally Once a day for 30 days 09/04/2024 Active Encounters Encounter Location Date Provider Diagnosis [facility] (PODIATRY) [address] [place] [address] [place] [address] 09/04/2024 Mathew Hoff Plan Of Treatment Medication Medication Name Sig Start Date Stop Date Notes Meloxicam 15 MG 1 tablet Orally Once a day for 30 days 06/2025 Progress Notes * Talia MERCADODOB:[birth year] (54 yo F)Acc No.[id number]:09/04/2024 Patient: Talia FREED :1970 A ge:54 Y S ex:Female Address:[address] [place], [address] * Refills Start Meloxicam Tablet, 15 MG, Orally, 30, 1 tablet, Once a day, 30 days, Refills=3 * true * Date: Generated for Lbi ng/Fadoloresg/eTransmitting on: 0 02/20/2025 03:33 PM EDT
--- OUTSIDE RECORDS SUMMARY | 2025-02-06 14:15 | XMS_ITS | Encounter Summary ---
Author Organization [employer] s tem Address [id number] [address] [place] [address] Care Team Providers Care Oriental Rug Repairer Name Role Phone No Pcp, No Pcp Primary Care Provider Unavailabl e Reason for Referral * Consultation (Routine) - Authorized Specialty Diagnoses / Procedures Referred By Contact Referred To Contact Urogynecology / Gynecology Diagnoses Cystocele with second degree uterine prolapse History of reconstructive repair of rectocele Urge urinary incontinence Leslye Muniz DO [address] [place] [address] Phone: tel:[phone] fax:[phone] Tania Asif MD [address], [address] [address] Phone: tel:[phone] fax:[phone] Referral ID Status Reason Start Date Expiration Date Visits Requested Visits Authorized [id number] Authorized Specialty Services Required 02/06/2025 02/06/2026 1 1 Reason for Visit * Reason Comments New Patient New Patient presents for evaluation of a possible rectocele. Encounter Details Date Type Department Care Team (Latest Contact Info) Description 02/06/2025 2:15 PM EDT Office Visit [facility]Gynecolo [facility] [address] [place] [address] Leslye Muniz DO [address] [place] [address] Cystocele with second degree uterine prolapse (Primary [...] Care Everywhere. * Pelvic floor muscle exercises (Maltese) documented in this encounter Progress Notes * [...] [facility] - [facility]yn [address] [facility] [address] [place] [address] Tania Asif MD [address] [place] [address] Scheduled Referrals Name Type Priority Associated Diagnoses Orde r Schedule [facility] - Urogynecology - [place], [place] Outpatient Referral Routine Cystocele with second [...] vaginitis documented in this encounter Care Teams Oriental Rug Repairer Relationship Specialty Start Date End Date No Pcp, [place] [address] PCP - General Family Medicine 11/21/18 documented as of this encounter
--- OUTSIDE RECORDS SUMMARY | 2025-02-20 15:31 | XMS_ITS | Encounter Summary ---
Author Organization [facility] Address [address] [place] [address] Care Team Providers Care Construction Person Name Role Phone Molina De Anda MD Primary Care Provider [phone] Valerie Groves TENTERER Unavailable [phone] Karime Dias [facility] + [phone] Reason for Visit * Reason Onset Date Comments Error (VOID this visit) 02/17/2025 Encounter Details Date Type Department Care Team (Late st Contact Info) Description 02/17/2025 [facility] [address] [place] [address] Pascale Arana NP [address] [place] [address] Error (VOID this visit) Social History Tobacco [...] 5 01/22/2025 [facility] - Occupational Stress Questionnaire Answer Date [...] Visit [facility] [address] [facility] [address] [place] [address] Karime Dias PMHNP- 112 [facility] [address] [place] [address] 02/25/2025 11:30 AM EDT Office Visit [facility] [address] [place] [address] Pascale Arana NP [address] [place] [address] 03/06/2025 3:00 PM EDT Social Work [facility] [address] [place] [address] [place] [address] Rohan Burns LPC documented as of this [...] as of this encounter Care Teams Construction Person Relationship Specialty Start Date End Date Molina De Anda MD [address] [place] [address] PCP - General Family Medicine 02/21/24 Valerie Groves NP [address] [place] [address] Nurse Practitioner Family Medicine 02/21/24 [facility] [address] [facility] [address] [place] [address] Nurse Practitioner Behavioral Health 01/22/25 documented as of this encounter
--- OUTSIDE RECORDS SUMMARY | 2025-02-20 15:31 | XMS_ITS | Encounter Summary ---
Author Organization [facility] Address [address] [place] [address] Care Team Providers Care Casino Cage Cashier Name Role Phone Shaikh NITHIN Main Primary Care Provider [phone] Shaikh NITHIN Main Primary Care Provider [phone] Molina De Anda MD Primary Care Provider [phone] Valerie Groves CONTRACT ADMINISTRATION MANAGER Unavailable [phone] Karime Dias [facility]- Unavailable [phone] Reason for Visit * Reason Comments Med Refill Encounter Details Date Type Department Care Team (Late st Contact Info) Description 10/16/2023 [facility] [address] [place] [address] Shaikh Main MD [address] [place] [address] Psychophysiological insomnia Social History Tobacco Use Types [...] How often do you attend chur or holiness services? Never 08/07/2023 Do you belong to any clubs o r organizations such as amish groups, unions, fraternal or athletic groups, or [...] Recorded Patient Health Questionnaire-2 Score 6 08/03/2023 [facility] of Occupat ional Health - Occupational Stress [...] Visit [facility] 112 [facility] [address] [place] [address] [facility] Di[facility] 112 [facility] [address] [place] [address] 02/25/2025 11:30 AM EDT Office Visit [facility] [address] [place] [address] Pascale Arana NP [address] [place] [address] 03/06/2025 3:00 PM EDT Social Work [facility] [address] [place] [address] [place] [address] Rohan Burns LPC documented as of this [...] documented as of this encounter Care Teams Casino Cage Cashier Relationship Specialty Start Date End Date Shaikh Main MD PCP - General Internal Medicine 04/20/23 01/07/24 Shaikh Main MD [address] [place] [address] PCP - General Internal Medicine 01/08/24 02/20/24 Molina De Anda MD [address] [place] [address] PCP - General Family Medicine 02/21/24 Valerie Groves NP [address] [place] [address] Nurse Practitioner Family Medicine 02/21/24 Karime Dias PMHNP-BC [address] [address] Nurse Practitioner Behavioral Health 01/22/25 documented as of this encounter
--- OUTSIDE RECORDS SUMMARY | 2025-02-20 15:31 | XMS_ITS | Encounter Summary ---
Author Organization [facility] Address [address] [place] [address] Care Team Providers Care Electronic Tech Name Role Phone Molina De Anda MD Primary Care Provider [phone] Valerie Groves ACQUISITION EDITOR Unavailable [phone] Karime Dias [facility] Unavailable + [phone] Encounter Details Date Type Department Care Team (Late st Contact Info) Description 02/18/2025 Abstract [facility] [address] [place] [address] Pascale Arana NP [address] [place] [address] Social History Tobacco Use Types Packs/Day Years [...] How often do you attend chur or moravian services? Never 08/07/2023 Do you belong to any clubs o r organizations such as yarsanism groups, unions, fraternal or athletic groups, or [...] Recorded Patient Health Questionnaire-2 Score 5 01/22/2025 [facility] of Occupat ional Health [...] Visit [facility] 112 [facility] [address] [place] [address] Karime Dias [facility] 112 [facility] [address] [place] [address] 02/25/2025 11:30 AM EDT Office Visit [facility] [address] [place] [address] Pascale Arana NP [address] [place] [address] 03/06/2025 3:00 PM EDT Social Work [facility] [address] [place] [address] [place] [address] Rohan Burns LPC documented as of this [...] documented as of this encounter Care Teams Electronic Tech Relationship Specialty Start Date End Date Molina De Anda MD [address] [place] [address] PCP - General Family Medicine 02/21/24 Valerie Groves NP [address] [place] [address] Nurse Practitioner Family Medicine 02/21/24 Karime Dias [facility] [address] [place] [address] [place] [address] Nurse Practitioner Behavioral Health 01/22/25 documented as of this encounter
--- OUTSIDE RECORDS SUMMARY | 2025-02-20 15:32 | XMS_ITS | Encounter Summary ---
Author Organization [facility] Address [address] [place] [address] Care Team Providers Care Collection Support Specialist Name Role Phone Molina De Anda MD Primary Care Provider [phone] Valerie Groves NETWORK SUPPORT SPECIALIST Unavailable [phone] Karime Dias [facility] Unavailable + [phone] Encounter Details Date Type Department Care Team (Late st Contact Info) Description 01/06/2025 Abstract [facility] [address] [place] [address] Pascale Arana NP [address] [place] [address] Social History Tobacco Use Types Packs/Day Years [...] Recorded Patient Health Questionnaire-2 Score 0 04/10/2024 [facility] of Occupat ional Health - Occupational [...] [facility] [address] [facility] [address] [place] [address] Karime Dias [facility] [address] [facility] [address] [place] [address] 02/25/2025 11:30 AM EDT Office Visit [facility] [address] [place] [address] Pascale Arana NP [address] [place] [address] 03/06/2025 3:00 PM EDT Social Work [facility] [address] [place] [address] [place] [address] Rohan Burns LPC documented as of this [...] documented as of this encounter Care Teams Collection Support Specialist Relationship Specialty Start Date End Date Molina De Anda MD [address] [place] [address] PCP - General Family Medicine 02/21/24 Valerie Groves NP [address] [place] [address] Nurse Practitioner Family Medicine 02/21/24 [facility] [address] [place] [address] [place] [address] Nurse Practitioner Behavioral Health 01/22/25 documented as of this encounter
--- OUTSIDE RECORDS SUMMARY | 2025-02-20 15:32 | XMS_ITS | Encounter Summary ---
Author Organization [facility] Address [address] [place] [address] Care Team Providers Care Qualitative Researcher Name Role Phone Molina De Anda MD Primary Care Provider [phone] Valerie Groves SUPERVISOR GATE SERVICES Unavailable [phone] Karime Dias [facility] Unavailable + [phone] Encounter Details Date Type Department Care Team (Late st Contact Info) Description 01/06/2025 Abstract [facility] [address] [place] [address] Pascale Arana NP [address] [place] [address] Social History Tobacco Use Types Packs/Day Years [...] 0 04/10/2024 [facility] of Occupat ional Health - Occupational Stress [...] [facility] [address] [facility] [address] [place] [address] Karime Dias [facility] [address] [facility] [address] [place] [address] 02/25/2025 11:30 AM EDT Office Visit [facility] [address] [place] [address] Pascale Arana NP [address] [place] [address] 03/06/2025 3:00 PM EDT Social Work [facility] [address] [place] [address] [place] [address] Rohan Burns LPC documented as of this [...] documented as of this encounter Care Teams Qualitative Researcher Relationship Specialty Start Date End Date Molina De Anda MD [address] [place] [address] PCP - General Family Medicine 02/21/24 Valerie Groves NP [address] [place] [address] Nurse Practitioner Family Medicine 02/21/24 [facility] Dias [facility] [address] [place] [address] [place] [address] Nurse Practitioner Behavioral Health 01/22/25 documented as of this encounter
--- OUTSIDE RECORDS SUMMARY | 2025-02-20 15:32 | XMS_ITS | Encounter Summary ---
Author Organization [facility] Address [address] [place] [address] Care Team Providers Care Oracle Sql Developer Name Role Phone Molina De Anda MD Primary Care Provider [phone] Valerie Groves SAS ADMINISTRATOR Unavailable [phone] Karime Dias HNP- Unavailable + [phone] Reason for Visit * Reason Onset Date Comments Med Refill 11/18/2024 Encounter Details Date Type Department Care Team (Late st Contact Info) Description 11/18/2024 Refill [facility] [address] [place] [address] Molina De Anda MD [address] [place] [address] Plantar fasciitis of right foot (Primary Dx) [...] 0 04/10/2024 [facility] of Occupat ionne Health - Occupational Stress Questionnaire Answer Date [...] [facility] [address] [facility] [address] [place] [address] Karime Dias HNP- [address] [facility] [address] [place] [address] 02/25/2025 11:30 AM EDT Office Visit [facility] [address] [place] [address] Pascale Arana NP [address] [place] [address] 03/06/2025 3:00 PM EDT Social Work [facility] 112 [facility] [address] [place] [address] Rohan Burns LPC documented as of this [...] documented as of this encounter Care Teams Oracle Sql Developer Relationship Specialty Start Date End Date Molina De Anda MD [address] [place] [address] PCP - General Family Medicine 02/21/24 Valerie Groves NP [address] [place] [address] Nurse Practitioner Family Medicine 02/21/24 Karime Dias [facility] [address] [facility] [address] [place] [address] Nurse Practitioner Behavioral Health 01/22/25 documented as of this encounter
--- OUTSIDE RECORDS SUMMARY | 2025-02-20 15:32 | XMS_ITS | Encounter Summary ---
Author Organization [facility] Address [address] [place] [address] Care Team Providers Care Oyster Culturist Name Role Phone Shaikh NITHIN Main Primary Care Provider [phone] Shaikh NITHIN Main Primary Care Provider [phone] Molina De Anda MD Primary Care Provider [phone] Valerie Groves PATTERN GRADER CUTTER Unavailable [phone] Karime Dias [facility]- Unavailable [phone] Encounter Details Date Type Department Care Team (Late st Contact Info) Description 11/20/2023 Orders Only [facility] [address] [place] [address] Shaikh Main MD [address] [place] [address] Social History Tobacco Use Types Packs/Day Years [...] any clubs o r organizations such as jehovah's witness groups, unions, fraternal or athletic groups, or [...] Recorded Patient Health Questionnaire-2 Score 0 11/13/2023 [facility] of Occupat ional Health - [...] Office Visit [facility] 112 [facility] [address] [place] [address] Karime Dias [facility] 112 [facility] [address] [place] [address] 02/25/2025 11:30 AM EDT Office Visit [facility] [address] [place] [address] Pascale Arana NP [address] [place] [address] 03/06/2025 3:00 PM EDT Social Work [facility] [address] [facility] [address] [place] [address] Rohan Burns LPC documented as of this [...] documented as of this encounter Care Teams Oyster Culturist Relationship Specialty Start Date End Date Shaikh Main MD PCP - General Internal Medicine 04/20/23 01/07/24 Shaikh Main MD [address] [place] [address] PCP - General Internal Medicine 01/08/24 02/20/24 Molina De Anda MD [address] [place] [address] PCP - General Family Medicine 02/21/24 Valerie Groves NP [address] [place] [address] Nurse Practitioner Family Medicine 02/21/24 Karime Dias [facility]- [address] [facility] [address] [place] [address] Nurse Practitioner Behavioral Health 01/22/25 documented as of this encounter
--- OUTSIDE RECORDS SUMMARY | 2025-02-20 15:32 | XMS_ITS | Encounter Summary ---
Author Organization [facility] Address [address] [place] [address] Care Team Providers Care Environmental Field Services Technician Name Role Phone Molina De Anda MD Primary Care Provider [phone] Valerie Groves BUOY TENDER Unavailable [phone] [facility]- Unavailable + [phone] Encounter Details Date Type Department Care Team (Late st Contact Info) Description 11/18/2024 Orders Only [facility] [address] [place] [address] Pascale Arana NP [address] [place] [address] Social History Tobacco Use Types Packs/Day Years [...] How often do you attend chur or orthodoxy services? Never 08/07/2023 Do you [...] Recorded Patient Health Questionnaire-2 Score 0 04/10/2024 [facility] of Occupat ional Health - [...] Visit [facility] [address] [facility] [address] [place] [address] [facility]ime Dias [facility] [address] [facility] [address] [place] [address] 02/25/2025 11:30 AM EDT Office Visit [facility] [address] [place] [address] Pascale Arana NP [address] [place] [address] 03/06/2025 3:00 PM EDT Social Work [facility] [address] [place] [address] [place] [address] Rohan Burns LPC documented as of this [...] (11/18/2024 2:41 PM EDT) us Pascale Arana BUOY TENDER LAB CHG PERFORMABLES Final Resu lt documented in this encounter Visit Diagnoses Not on filedocumented in this encounter Additional Health Concerns Active Problems Noted Date Diagnosed Date Patient on antidepressant monitoring plan 2023 Assessment Noted Time PHQ-9 Depression Total Score: 23 024 4:27 PM EST documented as of this encounter Care Teams Environmental Field Services Technician Relationship Specialty Start Date End Date Molina De Anda MD [address] [place] [address] PCP - General Family Medicine 02/21/24 Valerie Groves NP [address] [place] [address] Nurse Practitioner Family Medicine 02/21/24 [facility] [address] [place] [address] [place] [address] Nurse Practitioner Behavioral Health 01/22/25 documented as of this encounter
--- OUTSIDE RECORDS SUMMARY | 2025-02-20 15:32 | XMS_ITS | Encounter Summary ---
Author Organization [facility] Address [address] [place] [address] Care Team Providers Care Residential Care Facility Manager Name Role Phone Molina De Anda MD Primary Care Provider [phone] Valerie Groves CRIMINALIST TECHNICIAN Unavailable [phone] Karime Dias [facility]- Unavailable + [phone] Encounter Details Date Type Department Care Team (Late st Contact Info) Description 11/14/2024 Orders Only [facility] [address] [place] [address] Pascale Arana NP [address] [place] [address] UTI (urinary tract infection), uncomplicated (Primary Dx) [...] often do you attend chur ch or muslim services? Never 08/07/2023 Do you belong to [...] Recorded Patient Health Questionnaire-2 Score 0 04/10/2024 [facility] of Occupat ional Health - Occupational [...] Visit [facility] [address] [facility] [address] [place] [address] Karime Dias [facility] [address] [facility] [address] [place] [address] 02/25/2025 11:30 AM EDT Office Visit [facility] [address] [place] [address] Pascale Arana NP [address] [place] [address] 03/06/2025 3:00 PM EDT Social Work [facility] [address] [facility] [address] [place] [address] Rohan Burns LPC Scheduled Orders Name Type [...] as of this encounter Care Teams Residential Care Facility Manager Relationship Specialty Start Date End Date Molina De Anda MD [address] [place] [address] PCP - General Family Medicine 02/21/24 Valerie Groves NP [address] [place] [address] Nurse Practitioner Family Medicine 02/21/24 Karime Dias [facility] [address] [facility] [address] [place] [address] Nurse Practitioner Behavioral Health 01/22/25 documented as of this encounter
--- OUTSIDE RECORDS SUMMARY | 2025-02-20 15:32 | XMS_ITS | Encounter Summary ---
Author Organization [facility] Address [address] [place] [address] Care Team Providers Care High [employer] Social Studies Teacher Name Role Phone Molina De Anda MD Primary Care Provider [phone] Valerie Groves STONE LATHE OPERATOR Unavailable [phone] Karime Dias [facility]- Unavailable + [phone] Reason for Visit * Reason Comments Med Refill Encounter Details Date Type Department Care Team (Late st Contact Info) Description 02/06/2025 Refill [facility] [address] [place] [address] Pascale Arana NP [address] [place] [address] URTI (acute upper respiratory infection); Non-recurrent acute [...] Recorded Patient Health Questionnaire-2 Score 5 01/22/2025 [facility] [place] of Occupat ional Health - Occupational Stress [...] Visit [facility] [address] [facility] [address] [place] [address] [facility] [address] [place] [address] 02/25/2025 11:30 AM EDT Office Visit [facility] [address] [place] [address] Pascale Arana, MARY JO [address] [place] [address] 03/06/2025 3:00 PM EDT Social Work [facility] [address] [facility] [address] [place] [address] Rohan Burns LPC documented as of this [...] documented as of this encounter Care Teams High School Social Studies Teacher Relationship Specialty Start Date End Date Molina De Anda MD [address] [place] [address] PCP - General Family Medicine 02/21/24 Valerie Groves NP [address] [place] [address] Nurse Practitioner Family Medicine 02/21/24 [facility]ime Dias [facility] [address] [facility] [address] [place] [address] Nurse Practitioner Behavioral Health 01/22/25 documented as of this encounter
--- OUTSIDE RECORDS SUMMARY | 2025-02-20 15:32 | XMS_ITS | Encounter Summary ---
Author Organization [facility] Address [address] [place] [address] Care Team Providers Care Lab Animal Technologist Name Role Phone Molina De Anda MD Primary Care Provider [phone] Valerie Groves UI APPLICATION DEVELOPER Unavailable [phone] Karime Dias [facility]- Unavailable + [phone] Reason for Visit * Reason Comments Med Refill Encounter Details Date Type Department Care Team (Late st Contact Info) Description 02/11/2025 Refill [facility] [address] [place] [address] Pascale Arana NP [address] [place] [address] UTI (urinary tract infection), uncomplicated; Class 1 [...] r organizations such as buddhism groups, unions, fraternal or athletic groups, or [...] Patient Health Questionnaire-2 Score 5 01/22/2025 [facility] [place] of Occupat ional Health - Occupational Stress [...] Office Visit [facility] [address] [place] [address] [facility] [address] [place] [address] 02/25/2025 11:30 AM EDT Office Visit [facility] [address] [place] [address] Pascale Arana NP [address] [place] [address] 03/06/2025 3:00 PM EDT Social Work [facility] [address] [facility] [place] [address] Rohan Burns LPC documented as of this [...] documented as of this encounter Care Teams Lab Animal Technologist Relationship Specialty Start Date End Date Molina De Anda MD [address] [place] [address] PCP - General Family Medicine 02/21/24 Valerie Groves NP [address] [place] [address] Nurse Practitioner Family Medicine 02/21/24 [facility] [address] [place] [address] Nurse Practitioner Behavioral Health 01/22/25 documented as of this encounter
--- OUTSIDE RECORDS SUMMARY | 2025-02-20 15:32 | XMS_ITS | Clinical Summary ---
Author Organization [facility] Address [address] [place] [address] Care Team Providers Care Parts Data Writer Name Role Phone Shaikh NITHIN Main Primary Care Provider [phone] Allergies Active Allergy Reactions Criticality Noted Date [...] complete this topic Insurance [employer] Care Teams Parts Data Writer Relationship Specialty Start Date End Date Shaikh Main MD PCP - General Family Medicine 04/07/23
--- OUTSIDE RECORDS SUMMARY | 2025-02-20 15:32 | XMS_ITS | Encounter Summary ---
Author Organization [facility] Address [address] [place] [address] Care Team Providers Care American History Teacher Name Role Phone Molina De Anda MD Primary Care Provider [phone] Valerie Groves SOUND PRINTER Unavailable [phone] Karime Dias PMHNP- Unavailable + [phone] Encounter Details Date Type Department Care Team (Late Contact Info) Description 11/28/2024 Results Follow-Up [facility] [address] [place] [address] Social History Tobacco Use Types Packs/Day Years [...] often do you attend chur ch or sabianism services? Never 08/07/2023 Do you [...] Health Questionnaire-2 Score 0 04/10/20[facility] Questionnaire Answer Date [...] [facility] [address] [facility] [address] [place] [address] Karime Dias [facility] [address] [facility] [address] [place] [address] 02/25/2025 11:30 AM EDT Office Visit [facility] [address] [place] [address] Pascale Arana NP [address] [place] [address] 03/06/2025 3:00 PM EDT Social Work [facility] [address] [facility] [address] [place] [address] Rohan Burns LPC documented as of this [...] documented as of this encounter Care Teams American History Teacher Relationship Specialty Start Date End Date Molina De Anda MD [address] [place] [address] PCP - General Family Medicine 02/21/24 Valerie Groves NP [address] [place] [address] Nurse Practitioner Family Medicine 02/21/24 Karime Dias PMHNP- [address] [address] [place] [address] Nurse Practitioner Behavioral Health 01/22/25 documented as of this encounter
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
--- OUTSIDE RECORDS SUMMARY | 2025-02-20 15:32 | XMS_ITS | Patient Health Record ---
Author Organization [facility] [place] Address [address] [place] [address] Care Team Providers Care Labor And Delivery Registered Nurse Name Role Phone None, Unknown or Primary Care Provider Unavailab Tawana Lee [phone] Allergies Allergen (clinical drug ingredient) Drug/Non Drug Allergy documented on EMR Reaction Allergy Type Onset Date Status Penicillin rash Drug Allergy Active Results Component Value Reference Range Notes XR foot LT min 3V (Not yet r eviewed by provider) Interpretation: Performing Lab: Notes/Report: Source Facility: [place] [address] XRay Report Signed Patient: KALYN RUTHERFORD MR#: [id number] : 1970 Acct:[id number] Age/Sex: 54 / F ADM Date: 09/04/24 Loc: EC Attending Dr: Tawana Hoff D.P.M. Ordering Physician: Tawana Hoff D.P.M. Date of Service: 09/04/24 Procedure(s): XR foot LT min 3V Accession Number(s): [id number] cc: NASH LAMAR Peter D.P.M. The [place] [address] Patient Name: KALYN RUTHERFORD MRN: [id number] date: 1970 Sex: F Assigned Patient Location: EC Current Patient Location: Accession/Order Number: [id number] Exam Date: 09/04/2024 15:53 Report Date: 09/05/2024 [...] Signed By: 09/05/24 1019 DD/ 1016 TD/TT: Sanitizer: [place] [address] XRay Report Signed Patient: MARTY RUTHERFORD MR#: [id number] : 1970 Acct:[id number] Age/Sex: 54 / F ADM Date: 09/04/24 Loc: EC Attending Dr: Tawana Hoff D.P.M. Ordering Physician: Tawana Hoff D.P.M. Date of Service: 09/04/24 Procedure(s): XR foot LT min 3V Accession Number(s): [id number] cc: PAUL LAMAR; Tawana Hoff D.P.M. The [place] [id number] Patient Name: KALYN RUTHERFORD MRN: [id number] date: 1970 Sex: F Assigned Patient Location: Current Patient Location: Accession/Order Numb er: [id number] Exam Date: 09/04/2024 15:53 Report Date: 09/05/2024 10:16 At the request of: TAWANA HOFF Procedure: XR foot LT min 3V PROCEDURE: XR foot LT min 3V HISTORY: LEFT FOOT PAIN COMPARISON: XR foot left 05/31/2022 . 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 Ordering Physician: Tawana Hoff D.P.M. Date of Service: 09/09/24 Procedure(s): CT foot LT wo con Accession Number(s): [id number] cc: ANGEL LUIS LAMAR [place] [address] Patient Name: KALYN RUTHERFORD MRN: [id number] date: 1970 Sex: F Assigned Patient Location: CT Current Patient Location: CT Accession/Order Number: [id number] Exam Date: 09/09/2024 15:56 Report Date: 09/09/2024 [...] M.D. Signed By: 09/09/241741 DD/ 38 TD/TT: Sanitizer: [place] [address] CT Scan Report Signed Patient: MARTY RUTHERFORD MR#: [id number] : 1970 Acct:[id number] Age/Sex: 54 / F ADM Date: 09/09/24 Loc: CT Attending Dr: Tawana Hoff D.P.M. Ordering Physician: Tawana Hoff D.P.M. Date of Service: 09/09/24 Procedure(s): CT foot LT wo con Accession Number(s): [id number] cc: ANGEL LUIS LAMAR [place] [address] Patient Name: KALYN RUTHERFORD MRN: [id number] date: 1970 Sex: F Assigned Patient Location: CT Current Patient Location: CT Accession/Order Numb er: [id number] Exam Date: 09/09/2024 15:56 Report Date: 09/09/2024 [...] M.D. Signed By: 09/09/241741 DD/ 38 TD/TT: Sanitizer: Reason For Referral No Information Medications Medication [...] Problem Status W/U Status Risk Notes Problem [id number] Primary osteoarthritis , left ankle and foot (M19.072) Active confirmed Problem Gastroesophageal reflux disease (177267137) GERD (gastroesophag eal reflux disease) (K21.9) Active confirmed Problem Pain in left foot (259287367126982) Left foot pain (M79.672) Active confirmed Problem Anxiety depression (323887128) Anxiety with depression (F41.8) Active confirmed Vital Signs Heart Rate 85 /min 09/18/2024 Respiratory Rate 16 /min 09/18/2024 Oximetry 97 % 09/18/2024 Encounters Encounter Location Date Provider Diagnosis [facility] [address] [place] [address] [place] [address] 09/04/2024 Tawana Hoff Pain due to internal orthopedic prosthetic devices, implants and grafts, initial encounter T84.84XA ; Primary osteoarthritis, left ankle and foot M19.072 and Left foot pain M79.672 [facility] [address] [place] [address] [place] [address] 09/18/2024 Tawana Hoff 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.0 ; Primary osteoarthritis, left ankle and foot M19.072 and Pain due to internal orthopedic prosthetic devices, implants and grafts, initial encounter T84.84XA [facility] [address] [place] [address] [place] [address] 09/04/2024 Tawana Hoff Assessments Encounter Date Diagnosis [...] Start Date Coverage End Date [employer]MAR[employer] [facility] [address] [place] [address] [id number] Kalyn Rutherford Self - patient is the insured Medical (General) History Medical History History ICD Code GERD (gastroesophageal reflux disease) K 21.9 Anxiety F41.9 Arthritis M19.90 Nicotine dependence F17.200 Bipolar depression F31.9 Overactive bladder N32.81 Peripheral arterial disease I73.9 Surgical History Surgery Date(Month/Year) cholecystectomy tubal ligation gastric bypass 08/2019 posterior colporrhaphy repair, enterocel e repair 02/15/2021
--- OUTSIDE RECORDS SUMMARY | 2025-02-20 15:33 | XMS_ITS | Encounter Summary ---
Author Organization [facility] Address [address] [place] [address] Care Team Providers Care Plastic Surgery Manager Name Role Phone Molina De Anda MD Primary Care Provider [phone] Valerie Groves FIRST ASSISTANT Unavailable [phone] Karime Dias HNP- Unavailable [phone] Encounter Details Date Type Department Care Team (Late st Contact Info) Description 02/29/2024 Orders Only [facility] [address] [place] [address] Valerie Groves NP Social History Tobacco Use [...] How often do you attend chur or rastafari services? Never 08/07/2023 Do you [...] Recorded Patient Health Questionnaire-2 Score 0 02/28/2024 [facility] Questionnaire Answer [...] [facility] [address] [facility] [address] [place] [address] Karime Dias [facility] [address] [facility] [address] [place] [address] 02/25/2025 11:30 AM EDT Office Visit [facility] [address] [place] [address] Pascale Arana NP [address] [place] [address] 03/06/2025 3:00 PM EDT Social Work [facility] [address] [facility] [address] [place] [address] Rohan Burns LPC documented as of this [...] Laterality Modality Radiographic Maeve ging Valerie Groves FIRST ASSISTANT IMG XR PROCEDURES Final Result documented in this encounter Visit Diagnoses Not on filedocumented in this encounter Additional Health Concerns Active Problems Noted Date Diagnosed Date Patient on antidepressant monitoring plan 2023 Assessment Noted Time PHQ-9 Depression Total Score: 23 024 4:27 PM EST documented as of this encounter Care Teams Plastic Surgery Manager Relationship Specialty Start Date End Date Molina De Anda MD [address] [place] [address] PCP - General Family Medicine 02/21/24 Valerie Groves NP [address] [place] [address] Nurse Practitioner Family Medicine 02/21/24 [facility] Dias [facility] [address] [address] [place] [address] Nurse Practitioner Behavioral Health 01/22/25 documented as of this encounter
--- OUTSIDE RECORDS SUMMARY | 2025-02-20 15:33 | XMS_ITS | Encounter Summary ---
Author Organization [facility] Address [address] [place] [address] Care Team Providers Care Bar Helper Name Role Phone Molina De Anda MD Primary Care Provider [phone] Valerie Groves SHINGLES ROOFER Unavailable [phone] [facility] + [phone] Encounter Details Date Type Department Care Team (Late st Contact Info) Description 01/20/2025 Abstract [facility] [address] [place] [address] Pascale Arana NP [address] [place] [address] Social History Tobacco Use Types Packs/Day Years [...] Recorded Patient Health Questionnaire-2 Score 5 01/22/2025 [facility] of Occupat ional Health - Occupational [...] [facility] [address] [place] [address] Karime Dias PMHNP-BC [address] [place] [address] [place] [address] 02/25/2025 11:30 AM EDT Office Visit [facility] [address] [place] [address] Pascale Arana, MARY JO [address] [place] [address] 03/06/2025 3:00 PM EDT Social Work [facility] [address] [facility] [address] [place] [address] Rohan Burns LPC documented as of this [...] documented as of this encounter Care Teams Bar Helper Relationship Specialty Start Date End Date Molina De Anda MD [address] [place] [address] PCP - General Family Medicine 02/21/24 Valerie Groves NP [address] [place] [address] Nurse Practitioner Family Medicine 02/21/24 [facility] [address] [facility] [address] [place] [address] Nurse Practitioner Behavioral Health 01/22/25 documented as of this encounter
--- OUTSIDE RECORDS SUMMARY | 2025-02-20 15:33 | XMS_ITS | Encounter Summary ---
Author Organization [facility] Address [address] [place] [address] Care Team Providers Care Film Processor Name Role Phone Molina De Anda MD Primary Care Provider [phone] Valerie Groves HOOKER OFF Unavailable [phone] Karime Dias PMHNP- Unavailable + [phone] Encounter Details Date Type Department Care Team (Late st Contact Info) Description 02/19/2025 Clinisync Result Encounter [facility] External Department Unsolicited [...] often do you attend chur ch or synagogue services? Never 08/07/2023 Do you belong to [...] Recorded Patient Health Questionnaire-2 Score 5 01/22/2025 [facility] - Occupational Stress Questionnaire Answer Date [...] [facility] [address] [place] [phone] [facility] [address] [facility] [address] [place] [phone] 02/25/2025 11:30 AM EDT Office Visit [facility] [address] [place] [address] Pascale Arana, MARY JO [address] [place] [address] 03/06/2025 3:00 PM EDT Social Work [facility] [address] [facility] [address] [place] [phone] Rohan Burns LPC documented as of this encounter Goals Goal Patient Goal Type Associated Problems Recent Progress Patient-Stated? Author Help patient manage antidepressant medication Care Plan Patient on antidepressant monitoring plan No Shaikh Main MD documented as of this encounter Procedures Procedure Name Priority Date/Time Associated Diagnosis Comments XR FOOT LT MIN 3V 02/19/2025 3:0 3 PM EDT documented in this encounter Results * XR FOOT LT MIN 3V (02/19/2025 3:03 PM EDT) Anatomical Region Laterality Modality Other 02/19/2025 3:03 PM EDT Narrative 02/19/2025 3:06 [place] [address] XRay Report Signed Patient: TALIA RUTHERFORD MR#: [id number] : 1970 Acct:[id number] Age/Sex: 54 / F ADM Date: 02/19/25 Loc: [facility] Attending Dr: Michael LAZAR Ordering Physician: Michael Escobedo Date of Service: 02/19/25 Procedure(s): XR foot LT min 3V Accession Number(s): [id number] cc: Pascale Arana HOOKER OFF; Michael sEcobedo [facility] [place] [id number] Patient Name: TALIA RUTHERFORD MRN: [id number] date: 1970 Sex: F Assigned Patient Location: [facility] Current Patient Location: [facility] Accession/Order Number: [id number] Exam Date: 02/19/2025 10:39 Report Date: 02/19/2025 15:03 At the request of: MICHAEL LAZAR Procedure: XR foot LT min 3V LEFT FOOT - 3 views CLINICAL HISTORY: Left foot arthritis COMPARISON: Left foot 09/04/2024 FINDINGS: Mild soft tissue swelling is present. Bones are grossly demineralized. Hardware fixation is seen involving the second and third tarsometatarsal junctions without evidence of hardware complication. Scattered mild degenerative changes with plantar spurring. No bony erosions. XR/XR foot LT min 3V IMPRESSION: MILD SOFT TISSUE SWELLING WITHOUT ACUTE BONY PROCESS OR HARDWARE COMPLICATION. MILD SCATTERED DEGENERATIVE CHANGE WITH PLANTAR SPURRING. Impression dictated by: Merlin Massey Jr., D.O. 02/19/2025 3:03 PM Dictation Location: [place] [address] Electronically authenticated by: [id number] Y Date: 02/19/2025 15:03 Dictated By: Merlin Massey M.D. Signed By: 02/19/25 1506 DD/ 1503 TD/TT: Art Studio Teacher: Procedure Note Radiology, Radiologist, MD - 02/19/2025 [place] [address] XRay Report Signed Patient: TALIA RUTHERFORD DMR#: [id number] : 1970Acct:[id number] Age/Sex: 54 / FADM Date: 02/19/25 Loc: [facility] Attending Dr: Michael LAZAR Ordering Physician: Michael Escobedo Date of Service: 02/19/25 Procedure(s): XR foot LT min 3V Accession Number(s): [id number] cc: Pascale Arana HOOKER OFF; Michael Escobedo [facility] [place] [id number] Patient Name: TALIA RUTHERFORD MRN: [id number] date: 1970 Sex: F Assigned Patient Location: [facility] Current Patient Location: [facility] Accession/Order Number: [id number] Exam Date: 02/19/2025 10:39 Report Date: 02/19/2025 15:03 At the request of: MICHAEL LAZAR Procedure: XR foot LT min 3V LEFT FOOT - 3 views CLINICAL HISTORY: Left foot arthritis COMPARISON: Left foot 09/04/2024 FINDINGS: Mild soft tissue swelling is present. Bones are grossly demineralized. Hardware fixation is seen involving the second and third tarsometatarsal junctions without evidence of hardware complication. Scattered mild degenerative changes with plantar spurring. No bony erosions. XR/XR foot LT min 3V IMPRESSION: MILD SOFT TISSUE SWELLING WITHOUT ACUTE BONY PROCESS OR HARDWARECOMPLICATION. MILD SCATTERED DEGENERATIVE CHANGE WITH PLANTAR SPURRING. Impression dictated by: Merlin Massey Jr., D.O. 02/19/2025 3:03 PM Dictation Location: [place] [address] Electronically authenticated by: [id number] Y Date: 5:03 Dictated By: Merlin Massey M.D. Signed By:02/19/25 1506 DD/ 1503 TD/TT: Art Studio Teacher: Generic External Data Provider [facility] Final Result documented in this encounter Visit Diagnoses Not on filedocumented in this encounter Additional Health Concerns Active Problems Noted Date Diagnosed Date Patient on antidepressant monitoring plan 2023 Assessment Noted Time PHQ-9 Depression Total Score: 21 025 9:29 AM EDT documented as of this encounter Care Teams Film Processor Relationship Specialty Start Date End Date Molina De Anda MD [address] [place] [address] PCP - General Family Medicine 02/21/24 Valerie Grvoes NP [address] [place] [address] Nurse Practitioner Family Medicine 02/21/24 [facility] [address] [facility] [place] [address] Nurse Practitioner Behavioral Health 01/22/25 documented as of this encounter
--- OUTSIDE RECORDS SUMMARY | 2025-02-20 15:33 | XMS_ITS | Encounter Summary ---
Author Organization [facility] Address [address] [place] [address] Care Team Providers Care Market Research Manager Name Role Phone Molina De Anda MD Primary Care Provider [phone] Valerie Groves ORGANIZATIONAL DEVELOPMENT MANAGER Unavailable [phone] [facility] [phone] Encounter Details Date Type Department Care Team (Late st Contact Info) Description 01/22/2025 [facility] [address] [facility] [address] [place] [phone] Karime Dias [facility]- [address] [facility] [address] [place] [address] Social History Tobacco Use Types Packs/Day [...] Recorded Patient Health Questionnaire-2 Score 5 01/22/2025 [facility] - Occupational Stress [...] might happen 2 01/22/2025 9:30 AM Karime Norrsi PMHNP-BC JESSIKA-7 Total Score 18 01/22/2025 9:30 [...] [facility] [address] [facility] [address] [place] [address] Karime Dias PMHNP-BC [address] [place] [address] [place] [address] 02/25/2025 11:30 AM EDT Office Visit [facility] [address] [place] [address] Pascale Arana, MARY JO [address] [place] [address] 03/06/2025 3:00 PM EDT Social Work [facility] [address] [facility] [address] [place] [address] Rohan Burns LPC documented as of this [...] documented as of this encounter Care Teams Market Research Manager Relationship Specialty Start Date End Date Molina De Anda MD [address] [place] [address] PCP - General Family Medicine 02/21/24 Valerie Groves NP [address] [place] [address] Nurse Practitioner Family Medicine 02/21/24 Karime Dias [facility] [address] [place] [address] [place] [address] Nurse Practitioner Behavioral Health 01/22/25 documented as of this encounter
--- OUTSIDE RECORDS SUMMARY | 2025-02-20 15:33 | XMS_ITS | Encounter Summary ---
Author Organization [facility] Address [address] [place] [address] Care Team Providers Care Funeral Pre Arrangement Specialist Name Role Phone Shaikh NITHIN Main Primary Care Provider [phone] Shaikh NITHIN Main Primary Care Provider [phone] Molina De Anda MD Primary Care Provider [phone] Valerie Groves [employer]TER Unavailable [phone] Karime Dias [facility]- Unavailable Encounter Details Date Type Department Care Team (Late st Contact Info) Description 08/03/2023 Orders Only [facility] [address] [place] [address] Shaikh Main MD [address] [place] [address] Social History Tobacco Use Types Packs/Day Years [...] How often do you attend chur or bahai services? Never 08/07/2023 Do you belong to [...] Recorded Patient Health Questionnaire-2 Score 6 08/03/2023 [facility] [place] of Occupat ional Health - Occupational Stress [...] [facility] [address] [facility] [address] [place] [address] Karime Dias [facility] [address] [facility] [address] [place] [address] 02/25/2025 11:30 AM EDT Office Visit [facility] [address] [place] [address] Pascale Arana NP [address] [place] [address] 03/06/2025 3:00 PM EDT Social Work [facility] [address] [place] [address] [place] [address] Rohan Burns LPC documented as of this [...] documented as of this encounter Care Teams Funeral Pre Arrangement Specialist Relationship Specialty Start Date End Date Shaikh Main MD PCP - General Internal Medicine 04/20/23 01/07/24 Shaikh Main MD [address] [place] [address] PCP - General Internal Medicine 01/08/24 02/20/24 Molina De Anda MD [address] [place] [address] PCP - General Family Medicine 02/21/24 Valerie Groves NP [address] [place] [address] Nurse Practitioner Family Medicine 02/21/24 Karime Dias, PMHNP- [address] [address] Nurse Practitioner Behavioral Health 01/22/25 documented as of this encounter
--- OUTSIDE RECORDS SUMMARY | 2025-02-20 15:33 | XMS_ITS | Clinical Summary ---
Author Organization [facility] Address [address] [place] [address] Care Team Providers Care Inside Sales Professional Name Role Phone Molina De Anda MD Primary Care Provider [phone] Valerie Groves LETTUCE CUTTER Unavailable [phone] Karime Dias PMHNP- Unavailable [phone] Allergies Active Allergy Reactions Criticality Noted Date [...] of the risks of continued smoking: stroke, [place], all forms of cancer, lung disease, and [...] of the risks of continued smoking: stroke, [place], all forms of cancer, lung disease, and [...] of the risks of continued smoking: stroke, [place], all forms of cancer, lung disease, and [...] of the risks of continued smoking: stroke, [place], all forms of cancer, lung disease, and [...] abdominal wall 08/12/2024 11/20/2024 Overview (08/12/2024): [employer] [id number] EXP: 10/22/2026 LOT # [id number] Assessment & Plan (08/12/2024 5:50 PM EST): [...] Encounters Date Type Department Care Team Description 02/20/2025 Refill [facility] [address] [place] [address] Pascale Arana NP Psychophysiological insomnia 02/19/2025 Clinisync Result Encounter [facility] External Department Unsolicited Provider, Generic External Data 02/18/2025 Abstract [facility] [address] [place] [address] Pascale Arana NP 02/17/2025 Telephone [facility] [address] [place] [address] Pascale Arana NP Error (VOID this visit) 02/11/2025 Refill [facility] [address] [place] [address] Pascale Arana NP UTI (urinary tract infection), uncomplicated; Class 1 obesity due to excess calories without serious comorbidity in adult, unspecified BMI; BMI 32.0-32.9,adult 02/06/2025 Refill [facility] [address] [place] [address] Pascale Arana NP URTI (acute upper respiratory infection); Non-recurrent acute suppurative otitis media of both ears without spontaneous rupture of tympanic membranes 02/05/2025 Clinisync Result Encounter [facility]OMS External Department Unsolicited Provider, Generic External Data 02/05/2025 Clinisync Result Encounter [facility]OMS External Department Unsolicited Provider, Generic External Data 02/01/2025 Refill [facility] [address] [place] [address] Pascale Arana NP Bipolar disorder with severe depression (HCC) 01/22/2025 9:00 AM EDT Office Visit [facility] [address] [place] [address] [place] [address] [facility] J[facility]A (generalized anxiety disorder) ; Severe episode of recurrent major depressive disorder, without psychotic features (HCC); PTSD (post-traumatic stress disorder) ; Insomnia, unspecified type; Sleep apnea, unspecified type; Encounter for drug screening; Bipolar disorder with severe depression (HCC) 01/22/2025 Telephone [facility] [address] [place] [address] Pascale Arana, MARY JO 01/22/2025 Orders Only [facility] [address] [facility] [address] [place] [address] [facility] 01/22/2025 Bamboo flowsheet [facility] [address] [facility] [address] [place] [address] Karime Dias [facility] 01/22/2025 Travel 01/20/2025 Abstract [facility] [address] [place] [address] Pascale Arana, MARY JO 01/15/2025 Telephone [facility] [address] [place] [address] Pascale Arana NP 01/14/2025 Clinisync Result Encounter [facility]OMS External Department Unsolicited Pascale Arana NP 01/14/2025 Refill [facility] [address] [place] [address] Pascale Arana, MARY JO URTI (acute upper respiratory infection); Non-recurrent acute suppurative otitis media of both ears without spontaneous rupture of tympanic membranes 01/08/2025 Telephone [facility] [address] [place] [address] Pascale Arana, MARY JO 01/07/2025 Orders Only [facility] [address] [place] [address] Pascale Arana, MARY JO B12 deficiency (Primary Dx); Iron deficiency anemia secondary to inadequate dietary iron intake 01/07/2025 Telephone [facility] [address] [place] [address] Pascale Arana, MARY JO Vaginitis/Bacterial Vaginosis 01/06/2025 4:30 PM EDT Office Visit [facility] [address] [place] [address] Pascale Arana, MARY JO Bipolar disorder with severe depression (HCC) (Primary Dx); Gastroesophageal reflux disease, unspecified whether esophagitis present; Class 1 obesity due to excess calories without serious comorbidity with body mass index (BMI) of 32.0 to 32.9 in adult; Cigarette nicotine dependence without complication; Stress; Fibromyalgia; Psychophysiological insomnia 01/06/2025 Abstract [facility] [address] [place] [address] Pascale Arana, MARY JO 01/06/2025 Telephone [facility] [address] [place] [address] Pascale Arana, MARY JO 01/06/2025 Abstract [facility] [address] [place] [address] Pascale Arana, MARY JO 01/06/2025 Bamboo flowsheet [facility] [address] [place] [address] Pascale Arana, MARY JO 12/18/2024 Refill [facility] [address] [place] [address] Pascale Arana, MARY JO URTI (acute upper respiratory infection); Non-recurrent acute suppurative otitis media of both ears without spontaneous rupture of tympanic membranes 11/28/2024 Results Follow-Up [facility] [address] [place] [address] 11/20/2024 3:20 PM EDT Procedure Visit [facility] [address] [place] [address] Pascale Arana NP Well woman exam with [...] Pascale Arana NP 11/20/2024 Bamboo flowsheet [facility] [address] [place] [address] Pascale Arana NP from Last 3 Months [...] 08/07/2023 How often do you attend [employer] or roman catholic services? Never 08/07/2023 Do you belong to [...] Recorded Patient Health Questionnaire-2 Score 5 01/22/2025 [facility] - Occupational [...] [facility] [address] [facility] [address] [place] [address] Karime Dias, HN- [address] [facility] [address] [place] [address] 02/25/2025 11:30 AM EDT Office Visit [facility] [address] [place] [address] Pascale Arana, LETTUCE CUTTER [address] [place] [address] 03/06/2025 3:00 PM EDT Social Work [facility] [address] [facility] [address] [place] [address] Rohan Burns LPC Health Maintenance Due Date [...] MIN 3V 02/19/2025 3:0 3 PM EDT MR LUMBAR SPINE WO CON 2:18 PM [...] Recently Relevant to Health Maintenance Results * XR FOOT LT MIN 3V (02/19/2025 3:03 PM EDT) Anatomical Region Laterality Modality Other 02/19/2025 3:03 PM EDT Narrative 02/19/2025 3:06 PM EDT The [address] [address] XRay Report Signed Patient: TALIA RUTHERFORD MR#: [id number] : 1970 Acct:[id number] Age/Sex: 54 / F ADM Date: 02/19/25 Loc: RAD Attending Dr: Michael LAZAR Ordering Physician: Michael Escobedo Date of Service: 02/19/25 Procedure(s): XR foot LT min 3V Accession Number(s): [id number] cc: Pascale Arana NP; Michael Escobedo The [address] [address] Patient Name: TALIA RUTHERFORD MRN: [id number] date: 1970 Sex: F Assigned Patient Location: RAD Current Patient Location: RAD Accession/Order Number: [id number] Exam Date: 02/19/2025 10:39 Report Date: 02/19/2025 [...] Jr., D.O. 02/19/2025 3:03 PM Dictation Location: [place] [address] Electronically authenticated by: [id number] Y Date: 02/19/2025 15:03 Dictated By: Merlin Massey M.D. Signed By: 02/19/25 1506 DD/ 1503 TD/TT: Artificial Breast Fabricator: Procedure Note Radiology, Radiologist, MD - 02/19/2025 The [place] [id number] XRay Report Signed Patient: TALIA RUTHERFORD DMR#: [id number] : 1970Acct:[id number] Age/Sex: 54 / FADM Date: 02/19/25 Loc: RAD Attending Dr: Michael LAZAR Ordering Physician: Michael Escobedo Date of Service: 02/19/25 Procedure(s): XR foot LT min 3V Accession Number(s): [id number] cc: Pascale Arana NP; Michael Escobedo The [address] [address] Patient Name: TALIA RUTHERFORD MRN: [id number] date: 1970 Sex: F Assigned Patient Location: RAD Current Patient Location: RAD Accession/Order Number: [id number] Exam Date: 02/19/2025 10:39 Report Date: 02/19/2025 [...] SPURRING. Impression dictated by: Merlin Massey Jr., D.OConsuelo 02/19/2025 3:03 PM Dictation Location: [place] [address] Electronically authenticated by: [id number] Y Date: 5:03 Dictated By: Merlin Massey M.D. Signed By:02/19/25 1506 DD/ 1503 TD/TT: Artificial Breast Fabricator: Generic External Data Provider [facility] Final Result * MR LUMBAR SPINE WO CON (02/05/2025 2:18 PM EDT) Anatomical Region Laterality Modality Other 02/05/2025 2:18 PM EDT Narrative 02/05/2025 2:21 PM EDT The [address] [address] Magnetic Resonance Report Signed Patient: TALIA RUTHERFORD MR#: [id number] : 1970 Acct:[id number] Age/Sex: 54 / F ADM Date: 02/04/25 Loc: MRI Attending Dr: Bandar Eden M.D. Ordering Physician: Bandar Eden M.D. Date of Service: 02/04/25 Procedure(s): MR lumbar spine wo con Accession Number(s): [id number] cc: Pascale Arana LETTUCE CUTTER; Bandar Eden M.D. The [address] [address] Patient Name: TALIA RUTHERFORD MRN: [id number] date: 1970 Sex: F Assigned Patient Location: MRI Current Patient Location: Accession/Order Number: [id number] Exam Date: 02/05/2025 12:16 Report Date: 02/05/2025 [...] Circumferential disc bulge with moderate facet arthropathy. Nwim-ee-opodfkia right-sided and mild left-sided neural foraminal narrowing . 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 Impression dictated by: Mushtaq Antony M.D. 02/05/2025 2:18 PM Dictation Location: [place] [address] Electronically authenticated by: [id number] Y Date: 02/05/2025 14:18 Dictated By: Mushtaq Antony M.D. Signed By: 02/05/25 1421 DD/ 1418 TD/TT: Artificial Breast Fabricator: Procedure Note Radiology, Radiologist, - 02/05/2025 [place] [address] Magnetic Resonance Report Signed Patient: TALIA RUTHERFORD DMR#: [id number] : 1970Acct:[id number] Age/Sex: 54 / FADM Date: 02/04/25 Loc: MRI Attending Dr: Bandar Eden M.D. Ordering Physician: Bandar Eden M.D. Date of Service: 02/04/25 Procedure(s): MR lumbar spine wo con Accession Number(s): [id number] cc: Pascale Arana NP; Bandar Eden M.D. The [place] [id number] Patient Name: TALIA RUTHERFORD MRN: [id number] date: 1970 Sex: F Assigned Patient Location: MRI Current Patient Location: Accession/Order Number: [id number] Exam Date: 02/05/2025 12:16 Report Date: 02/05/2025 [...] Circumferential disc bulge with moderate facet arthropathy. Szfj-oj-dnmpkqyd right-sided and mild left-sided neural foraminalnarrowing . 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 Impression dictated by: Mushtaq Antony M.D. 02/05/2025 2:18 PM Dictation Location: [place] [address] Electronically authenticated by: [id number] Y Date: 4:18 Dictated By: Mushtaq Antony M.D. Signed By:02/05/25 1421 DD/ 1418 TD/TT: Artificial Breast Fabricator: us Generic External Data Provider [facility] Final Result * MR cervical spine wo contrast (02/05/2025 12:16 PM EDT) Anatomical Region Laterality Modality Spine, C-spine Magnetic Resonan ce 02/05/2025 12:1 6 PM EDT Narrative 02/05/2025 12:18 [place] [address] Magnetic Resonance Report Signed Patient: TALIA RUTHERFORD MR#: [id number] : 1970 Acct:[id number] Age/Sex: 54 / F ADM Date: 02/04/25 Loc: MRI Attending Dr: Bandar Eden M.D. Ordering Physician: Bandar Eden M.D. Date of Service: 02/04/25 Procedure(s): MR cervical spine wo con Accession Number(s): [id number] cc: Pascale Arana NP; Bandar Eden M.D. [address] [address] Patient Name: TALIA RUTHERFORD MRN: [id number] date: 1970 Sex: F Assigned Patient Location: MRI Current Patient Location: Accession/Order Number: [id number] Exam Date: 02/05/2025 12:10 Report Date: 02/05/2025 [...] Uncovertebral spurring greatest right. Moderate right and ufrk-hp-xejpeogj left-sided neural foraminal narrowing. Mild canal narrowing. C5-6: Broad-based disc bulge with uncovertebral spurring, greatest left. Moderate right-sided moderate to severe left-sided neural foraminal narrowing. Mild central canal stenosis. C6-C7: Broad-based disc osteophyte complex with uncovertebral spurring. Qaeg-ae-apkslvvf right moderate severe left neural foraminal narrowing. Cick-wa-gqymicuy canal narrowing. C7-T1: Minimal vertebral hypertrophy. Moderate facet arthropathy. Canal and patent. Mild foraminal narrowing. MR/MR cervical spine wo con IMPRESSION: Overall multilevel degenerative changes with up to jcke-oh-zajimrei central canal narrowing. Multilevel foraminal encroachment as noted above. Impression dictated by: Mushtaq Antony M.D. 02/05/2025 12:16 PM Dictation Location: [place] [address] Electronically authenticated by: [id number] Y Date: 02/05/2025 12:16 Dictated By: Mushtaq Antony M.D. Signed By: 02/05/25 1218 DD/ 1216 TD/TT: Artificial Breast Fabricator: Procedure Note Radiology, Radiologist, - 02/05/2025 [place] [address] Magnetic Resonance Report Signed Patient: TALIA RUTHERFORD DMR#: [id number] : 1970Acct:[id number] Age/Sex: 54 / FADM Date: 02/04/25 Loc: MRI Attending Dr: Bandar Eden M.D. Ordering Physician: Bandar Eden M.D. Date of Service: 02/04/25 Procedure(s): MR cervical spine wo con Accession Number(s): [id number] cc: Pascale Arana NP; Bandar Eden M.D. The [place] [id number] Patient Name: TALIA RUTHERFORD MRN: [id number] date: 1970 Sex: F Assigned Patient Location: MRI Current Patient Location: Accession/Order Number: [id number] Exam Date: 02/05/2025 12:10 Report Date: 02/05/2025 [...] Uncovertebral spurring greatest right. Moderate right and xxox-tg-sbgmnaet left-sided neural foraminal narrowing. Mild canal narrowing. C5-6: Broad-based disc bulge with uncovertebral spurring, greatest left. Moderate right-sided moderate to severe left-sided neural foraminalnarrowing. Mild central canal stenosis. C6-C7: Broad-based disc osteophyte complex with uncovertebral spurring. Ycof-ig-aprmiasi right moderate severe left neural foraminal narrowing. Atog-az-cfzjfieg canal narrowing. C7-T1: Minimal vertebral hypertrophy. Moderate facet arthropathy. [place] patent. Mild foraminal narrowing. MR/MR cervical spine wo con IMPRESSION: Overall multilevel degenerative changes with up to veke-tp-rdxqxhtrmhjlmdp canal narrowing. Multilevel foraminal encroachment as noted above. Impression dictated by: Mushtaq Antony M.D. 02/05/2025 12:16 PM Dictation Location: [place] [address] Electronically authenticated by: [id number] Y Date: 2:16 Dictated By: Mushtaq Antony M.D. Signed By:02/05/25 1218 DD/ 1216 TD/TT: Artificial Breast Fabricator: us Generic External Data Provider IMG MRI PROCEDURE S Final Result * (ABNORMAL) VITAMIN B12 (01/14/2025 12:49 PM EDT) VITAMIN B12 >2000(A) 232 - 1245 pg/mL [facility] Comment: Performed at: [facility] [employer] [id number] Timing Adjuster: Hector Franco PhD, Phone: [phone] 01/14/2025 12:4 9 PM EDT 01/14/2025 12:50 PM EDT Narrative CLINISYNC - 01/15/2025 4:07 AM EDT us Pascale Arana LETTUCE CUTTER LAB BLOOD ORDERABLES Final Resu lt [facility] * TRANSFERRIN (01/14/2025 12:49 PM EDT) TRANSFERRIN 296 192 - 364 mg/dL [facility] Comment: Performed at: [address] [id number] Timing Adjuster: Hector Franco PhD, Phone: [phone] 01/14/2025 12:4 9 PM EDT 01/14/2025 12:50 PM EDT Narrative CLINISYNC - 01/15/2025 5:07 AM EDT Pascale Arana LETTUCE CUTTER LAB BLOOD ORDERABLES Final Resu lt [facility] TB * METRO IRON AND TIBC (01/14/2025 12:49 PM EDT) [facility] IRON 54.0 50.0 - 170.0 ug/dL [facility] TOTAL IRON BINDING CAPACITY 387.0 250.0 - 450.0 ug/dL [facility] PERCENT IRON SATURATION 14.0 % [facility] 01/14/2025 12:4 9 PM EDT 01/14/2025 12:50 PM EDT Narrative CLINISYNC - 01/14/2025 1:50 PM EDT Pascale Arana LETTUCE CUTTER CLINIS[facility]NC Final Result Performing Organization Address City/[facility]/ZIP Co de Phone Number CLINISYNM TB * [facility] FERRITIN (01/14/2025 12:49 PM EDT) FERRITIN 10.0 8.0 - 252.0 ng/mL [facility] 01/14/2025 12:4 9 PM EDT 01/14/2025 12:50 PM EDT Narrative CLINISYNC - 01/14/2025 2:05 PM EDT Pascale Arana LETTUCE CUTTER CLIN[facility] Final Result [facility]IN[facility] TB * (ABNORMAL) ALL CBC WITH AUTO [...] us Pascale Arana NP CLINIS[facility]NC Final Result CLINIS[facility]NC TB * (ABNORMAL) IGP,APTIMA HPV,AGE GDLN (11/20/2024 4:05 PM EDT) AGE GDLN ACOG TESTING Note . [facility] Comment: TESTS RESULT FLAG UNITS REF RANGE LAB Clinician Provided Cytology Information Source.............Cervix;Endocervix No. of containers..01 ThinPrep Vial Age Radha JEAN Fiorella... FLAG LEGEND: L-Low Normal,H-High Normal,LL-Alert Low,HH-Alert High <-Panic Low,>-Panic High,A-Abnormal,AA-Critical Abnormal Performed at: 01 =[facility] [address] [place] [address] Monika Norton MD, IGP, APTIMA HPV, RFX 16/18,45 Note . [facility] Comment: TESTS RESULT FLAG UNITS REF RANGE LAB DIAGNOSIS: 02 NEGATIVE FOR INTRAEPITHELIAL LESION OR MALIGNANCY. Specimen adequacy: 02 Satisfactory for evaluation. Endocervical and/or squamous metaplastic cells (endocervical component) are present. Performed by: 02 Carrol Guerrero, Photo Mask Cleaner . 02 Note: Note 02 The Pap [...] <-Panic Low,>-Panic High,A-Abnormal,AA-Critical Abnormal Performed at: [address] [address] Monika Norton MD, HPV APTIMA Positive(A) Negative [facility] Comment: This nucleic acid amplification test detects fourteen high- risk HPV types (16,18,31,33,35,39,45,51,52,56,58,59,66,68) without differentiation. HPV GENOTYPE 16 Negative Negative [facility] HPV GENOTYPE 18,45 Negative Negative [facility] Comment: Performed at: [address] [id number] Timing Adjuster: Monika Norton MD, Phone: [phone] Performed at: [address] [id number] Timing Adjuster: Monika Norton MD, Phone: [phone] 11/20/2024 4:05 PM EDT 11/21/2024 7:10 AM EDT Narrative CLINISYNC - 11/26/2024 8:08 PM EDT BRUSH-ALONE CERVIX ENDOCERVIX us Pascale Arana NP LAB BLOOD ORDERABLES Final Resu lt Performing Organization Address City/State/[facility] Co de Phone Number CLINISYNC [facility] * MM TOMOSYNTHESIS SCREENING BI (10/23/2024 3:55 PM EDT) Anatomical Region Laterality Modality Other 10/23/2024 3:55 PM EDT Narrative 10/23/2024 3:55 [place] [address] Mammography Report Signed Patient: TALIA RUTHERFORD MR#: [id number] : 1970 Acct:[id number] Age/Sex: 54 / F ADM Date: 10/23/24 Loc: MAMMO Attending Dr: Pascale Arana NP Ordering Physician: Pascale Arana NP Results: Date of Service: 10/23/24 Follow Up: Procedure(s): MM tomosynthesis screening BI Accession Number(s): [id number] cc: Pascale Arana NP Patient Name: TALIA RUTHERFORD MR#: [id number] : 1970 Exam Date: 10/23/2024 Ordering Doctor: [...] breast cancer at age 51. LOCATION: [facility] BREAST COMPOSITION: There are scattered areas [...] Signed By: 10/23/24 1555 DD/ 54 TD/TT: Artificial Breast Fabricator: Procedure Note Radiology, Radiologist, MD - 10/23/2024 [place] [address] Mammography Report Signed Patient: TALIA RUTHERFORD DMR#: [id number] : 1970Acct:[id number] Age/Sex: 54 / FADM Date: 10/23/24 Loc: MAMMO Attending Dr: Pascale Arana LETTUCE CUTTER Ordering Physician: Pascale Arana NPResults: Date of Service: 10/23/24Follow Up: Procedure(s): MM tomosynthesis screening BI Accession Number(s): [id number] cc: Pascale Arana NP Patient Name: TALIA RUTHERFORD MR#: [id number] : 1970 Exam Date: 10/23/2024 Ordering Doctor: JASON Arana VIDEO GAME SCRIPT WRITER RADIOLOGY REPORT PROCEDURE: MM TOMOSYNTHESIS SCREENING BI COMPARISON: None. INDICATIONS: Screening Calculator Name NCI Breast Cancer Risk Assessment Tool 5 Year Breast Cancer Risk 0.80% Lifetime Breast Cancer Risk 6.20% Personal Breast Cancer No Personal Ovarian Cancer No Treatments None Family Cancers Grandmother-maternal with breast cancer at age 50; Aunt-maternal with breast cancer at age 50. LOCATION: [facility] BREAST COMPOSITION: There are scattered areas [...] Merlin Massey M.D. Signed By:10/23/24 1555 DD/ 54 TD/TT: Artificial Breast Fabricator: Pascale Arana LETTUCE CUTTER [facility] Final Result from Last 3 Months or Most Recently Relevant to Health Maintenance Additional Health Concerns Active Problems Noted Date Diagnosed Date Patient on antidepressant monitoring plan 2023 Insurance [employer] Care Teams Inside Sales Professional Relationship Specialty Start Date End Date Molina De Anda MD [address] [place] [address] PCP - General Family Medicine 02/21/24 Valerie Groves NP [address] [place] [address] Nurse Practitioner Family Medicine 02/21/24 Karime Dias PMHNP- [address] [place] [address] [place] [address] Nurse Practitioner Behavioral Health 01/22/25
--- OUTSIDE RECORDS SUMMARY | 2025-02-20 15:33 | XMS_ITS | Encounter Summary ---
Author Organization [employer] Address [id number] [address] [place] [address] Care Team Providers Care Building Tech Name Role Phone No Pcp, No Pcp Primary Care Provider Unavailpedro e Encounter Details Date Type Department Care Team (Late st Contact Info) Description 02/13/2023 Telephone [facility] General [facility] [address] [place] [address] Segun Keene DO [address] [place] [address] Social History Tobacco Use Types [...] office visit;just set up for colonsocopy at [facility] for anemis. I don't need to see he agian. Saw her today!!! * Telephone Encounter - Alberta Millan - 02/13/2023 11:36 AM EDT Talia called the office to try to reschedule her appointment, I informed her that Dr. Jassi fraga her set up for a colonoscopy at [facility]. Told Talia that our surgery schedulerwill call her back to schedule that with her. * Telephone Encounter - SUGEY Loyd - 02/13/2023 11:36 AM EDT I called Talia and scheduled colonoscopy at [facility] for 03/08/23. The patient is coming in tomorrow 02/14/23 to sign papers and go over bowel prep. I will send Dr. Keene a message to put in orders for this procedure and email everything over to Anh at the [facility]. documented in this encounter Plan of Treatment Upcoming Encounters Date Type Department Care Team (Late st Contact Info) Description 04/02/2025 3:00 PM EDT Office Visit [facility] [place] [address] [place] [address] Tania Asif MD [address] [place] [address] documented as of this encounter Visit Diagnoses Not on filedocumented in this encounter Care Teams Building Tech Relationship Specialty Start Date End Date No Pcp, [place] [address] PCP - General Family Medicine 11/21/18 documented as of this encounter
--- OUTSIDE RECORDS SUMMARY | 2025-02-20 15:33 | XMS_ITS | Encounter Summary ---
Author Organization [facility] Address [address] [place] [address] Care Team Providers Care Well Treatment Offsider Name Role Phone Molina De Anda MD Primary Care Provider [phone] Valerie Groves TURBINE ATTENDANT Unavailable [phone] Karime Dias [facility]- Unavailable + [phone] Reason for Visit * Reason Comments Med Refill Encounter Details Date Type Department Care Team (Late st Contact Info) Description 02/20/2025 Refill [facility] [address] [place] [address] Pascale Arana NP [address] [place] [address] Psychophysiological insomnia Social History Tobacco Use Types [...] often do you attend chur ch or samaritan services? Never 08/07/2023 Do you belong to [...] Recorded Patient Health Questionnaire-2 Score 5 01/22/2025 [facility] of Occupat ional Health - Occupational Stress [...] [facility] [address] [facility] [address] [place] [address] Karime Dias [facility] [address] [facility] [address] [place] [address] 02/25/2025 11:30 AM EDT Office Visit [facility] [address] [place] [address] Pascale Arana NP [address] [place] [address] 03/06/2025 3:00 PM EDT Social Work [facility] [address] [place] [address] [place] [address] Rohan Burns LPC documented as of this [...] documented as of this encounter Care Teams Well Treatment Offsider Relationship Specialty Start Date End Date Molina De Anda MD [address] [place] [address] PCP - General Family Medicine 02/21/24 Valerie Groves NP [address] [place] [address] Nurse Practitioner Family Medicine 02/21/24 [facility] [address] [place] [address] [place] [address] Nurse Practitioner Behavioral Health 01/22/25 documented as of this encounter
--- OUTSIDE RECORDS SUMMARY | 2025-02-20 15:33 | XMS_ITS | Encounter Summary ---
Author Organization [facility] Address [address] [place] [address] Care Team Providers Care Fuller Brush Man Name Role Phone Molina De Anda MD Primary Care Provider [phone] Valerie Groves NP Unavailable [phone] Karime Dias [facility]- Unavailable + [phone] Reason for Visit * Reason Onset Date Comments Med Refill Letter for School/Work 02/01/2025 Encounter Details Date Type Department Care Team (Late st Contact Info) Description 02/01/2025 Refill [facility] [address] [place] [address] Pascale Arana NP [address] [place] [address] Bipolar disorder with severe depression (HCC) Social [...] How often do you attend chur or amish services? Never 08/07/2023 Do you belong to any clubs o r organizations such as christianity groups, unions, fraternal or athletic groups, or [...] Recorded Patient Health Questionnaire-2 Score 5 01/22/2025 [facility] of Occupat ional Health - Occupational Stress [...] [address] [place] [address] [place] [address] Karime Dias [facility] 112 [facility] [address] [place] [address] 02/25/2025 11:30 AM EDT Office Visit [facility] [address] [place] [address] Pascale Arana, MARY JO [address] [place] [address] 03/06/2025 3:00 PM EDT Social Work [facility] [address] [facility] [address] [place] [address] Rohan Burns LPC documented as of this [...] documented as of this encounter Care Teams Fuller Brush Man Relationship Specialty Start Date End Date Molina De Anda MD [address] [place] [address] PCP - General Family Medicine 02/21/24 Valerie Groves NP [address] [place] [address] Nurse Practitioner Family Medicine 02/21/24 Karime Dias [facility] [address] [facility] [address] [place] [address] Nurse Practitioner Behavioral Health 01/22/25 documented as of this encounter
--- OUTSIDE RECORDS SUMMARY | 2025-02-20 15:33 | XMS_ITS | Encounter Summary ---
Author Organization [facility] Address [address] [place] [address] Care Team Providers Care Sign Hanger Supervisor Name Role Phone Shaikh NITHIN Main Primary Care Provider [phone] Shaikh NITHIN Main Primary Care Provider [phone] Molina De Anda MD Primary Care Provider [phone] Valerie Groves SAMPLE GRADER Unavailable [phone] Karime Dias [facility]- Unavailable [phone] Encounter Details Date Type Department Care Team (Late st Contact Info) Description 08/02/2023 Orders Only [facility] [address] [place] [address] Shaikh Main MD [address] [place] [address] Social History Tobacco Use Types Packs/Day Years [...] 07/03/2023 How often do you attend [facility] or orthodoxy services? Patient declined 07/03/2023 Do you belong [...] Recorded Patient Health Questionnaire-2 Score 6 08/03/2023 [facility] [place] of Occupat ional Health - Occupational Stress [...] slept in a long-term (including now)? No 07/03/2023 Comments Unknown Sex [...] Office Visit [facility] 112 [facility] [address] [place] [address] Karime Dias [facility]- 112 [facility] [address] [place] [address] 02/25/2025 11:30 AM EDT Office Visit [facility] [address] [place] [address] Pascale Arana NP [address] [place] [address] 03/06/2025 3:00 PM EDT Social Work [facility] [address] [place] [address] [place] [address] Rohan Burns LPC documented as of this encounter Procedures Procedure Name Priority Date/Time Associated Diagnosis Comments MISCELLANEOUS LAB TEST Routine 07/28/2023 1:49 PM EST documented in this encounter Results * - Miscellaneous Test (07/28/2023 1:49 PM EST) us Shaikh Etelvina [facility] BLOOD ORDERABLES Final Resu lt documented in this encounter Visit Diagnoses Not on filedocumented in this encounter Care Teams Sign Hanger Supervisor Relationship Specialty Start Date End Date Shaikh Main MD PCP - General Internal Medicine 04/20/23 01/07/24 Shaikh Main MD [address] [place] [address] PCP - General Internal Medicine 01/08/24 02/20/24 Molina De Anda MD [address] [place] [address] PCP - General Family Medicine 02/21/24 Valerie Groves, MARY JO [address] [place] [address] Nurse Practitioner Family Medicine 02/21/24 Karime Dias [facility]- [address] [place] [address] [place] [address] Nurse Practitioner Behavioral Health 01/22/25 documented as of this encounter
--- OUTSIDE RECORDS SUMMARY | 2025-02-20 15:33 | XMS_ITS | Encounter Summary ---
Author Organization [facility] Address [address] [place] [address] Care Team Providers Care Die Polisher Name Role Phone Shaikh NITHIN Main Primary Care Provider [phone] Shaikh NITHIN Main Primary Care Provider [phone] Molina De Anda MD Primary Care Provider [phone] Valerie Groves JOB PRINTER APPRENTICE Unavailable [phone] Karime Dias [facility]- Unavailable Encounter Details Date Type Department Care Team (Late st Contact Info) Description 08/07/2023 Orders Only [facility] [address] [place] [address] Shaikh Main MD [address] [place] [address] Social History Tobacco Use Types Packs/Day Years [...] Recorded Patient Health Questionnaire-2 Score 6 08/03/2023 [facility] [place] of Occupat ional Health - Occupational Stress [...] [facility] [address] [place] [address] [facility] [address] [place] [address] [place] [address] 02/25/2025 11:30 AM EDT Office Visit [facility] [address] [place] [address] Pascale Arana, MARY JO [address] [place] [address] 03/06/2025 3:00 PM EDT Social Work [facility] [address] [facility] [address] [place] [phone] Rohan Burns LPC documented as of this [...] documented as of this encounter Care Teams Die Polisher Relationship Specialty Start Date End Date Shaikh Main MD PCP - General Internal Medicine 04/20/23 01/07/24 Shaikh Main MD [address] [place] [address] PCP - General Internal Medicine 01/08/24 02/20/24 Molina De Anda MD [address] [place] [address] PCP - General Family Medicine 02/21/24 Valerie Groves NP [address] [place] [address] Nurse Practitioner Family Medicine 02/21/24 Karime Dias [facility]- [address] [address] [place] [address] Nurse Practitioner Behavioral Health 01/22/25 documented as of this encounter
--- OUTSIDE RECORDS SUMMARY | 2025-02-20 15:33 | XMS_ITS | Clinical Summary ---
Author Organization Simples tem Address [id number] [address] [place] [address] Care Team Providers Care An/Ssn 2 4 Operator Name Role Phone No Pcp, No Pcp Primary Care Provider Unavailabl e Allergies Active Allergy Reactions Criticality Noted Date Comments Penicillins Hives 02/08/2023 Medications sod sulf-pot chloride-mag sulf 1.479-0.188- 0.225 gram tablet See instructional sheet given by office. Patient was given a [employer] voucher to use, this is not to [...] Visit [facility] [address] [place] [address] Leslye Muniz, Cystocele with second [...] Pelvic Health - Urogyn [address] [facility] [address] [place] [address] [place] [address] Tania Asif MD [address] [facility] [address] [place] [address] Health Maintenance Due Date Last Done Comments Tobacco Counseling 1971 Depression Screening 1983 Adult BMI Follow Up Plan 1989 DTaP,Tdap and Td Vaccines (1 - Tdap) 1990 Pap Smear 1992 Zoster (Shingles) Vaccine (1 of 2) 2021 Influenza Vaccine 03/24/2025 Adult BMI Screening 02/06/2026 02/06/2025 Tobacco Screening 02/06/2026 02/06/2025 Medical Devices Not on file Insurance [employer] Care Teams An/Ssn 2 4 Operator Relationship Specialty Start Date End Date No Pcp, No Pcp SEG[place] Stephen [address] PCP - General Family Medicine 11/21/18
--- NOTE | 2025-02-20 16:06 | PM.CN ---
Consult Note: HPI Data of Consult Patient: known to practice within the last 3 years Consult date: 02/20/25 Requesting Physician: Flory Payne NP Primary Care Provider: Pascale Arana NP Consult Narrative Reason for consult: neck, right shoulder/arm, low back, right leg pain and weakness Narrative: 54yof who presents for evaluation. worsening pain throughout low back with radiation into right leg. has had falls recently and has noticed foot drop. lumbar xr shows multilevel degenerative changes in lower lumbar spine. notes pain in neck that radiates into right shoulder/arm region. has completed >6 weeks of provider directed home exercise program, without lasting benefit. also longstanding history of chiropractic therapy >3 months. uses gabapentin, mobic, flexeril. denies adverse med side effects. recently underwent cervical and lumbar MRI with results below. cc:: CC: Flory Payne NP Review of Systems ROS Status of ROS 10 or more systems reviewed and unremarkable except as noted in history and below [facility] Medical History Overactive bladder ?N32.81 - Overactive bladder (ICD-10) Obesity ?E66.9 - Obesity, unspecified (ICD-10) Nicotine dependence ?F17.200 - Nicotine dependence, unspecified, uncomplicated (ICD-10) History of cystocele ?Z87.448 - Personal history of other diseases of urinary system (ICD-10) PVD (peripheral vascular disease) ?I73.9 - Peripheral vascular disease, unspecified (ICD-10) Iron deficiency anemia ?D50.9 - Iron deficiency anemia, unspecified (ICD-10) Fibromyalgia ?M79.7 - Fibromyalgia (ICD-10) Bipolar disorder ?F31.9 - Bipolar disorder, unspecified (ICD-10) UGIB (upper gastrointestinal bleed) ?K92.2 - Gastrointestinal hemorrhage, unspecified (ICD-10) Anxiety with depression ?F41.8 - Other specified anxiety disorders (ICD-10) Gastro-esophageal reflux ?K21.9 - Gastro-esophageal reflux disease without esophagitis (ICD-10) Arthritis of left foot ?M19.072 - Primary osteoarthritis, left ankle and foot (ICD-10) RP (rectal prolapse) ?K62.3 - Rectal prolapse (ICD-10) Chronic headache ?R51.9 - Headache, unspecified (ICD-10) ?G89.29 - Other chronic pain (ICD-10) Surgical History History of tubal ligation ?Z98.51 - Tubal ligation status (ICD-10) Hx of cholecystectomy ?Z90.49 - Acquired absence of other specified parts of digestive tract (ICD-10) H/O cystoscopy ?Z98.890 - Other specified postprocedural states (ICD-10) H/O esophagogastroduodenoscopy ?Z98.890 - Other specified postprocedural states (ICD-10) Hx of gastric bypass ?Z98.84 - Bariatric surgery status (ICD-10) Family History Mother Family history of diabetes mellitus Father Heart disease Social History Within the past year, how often did you have a drink containing alcohol: never Within the past year, how often did you have six or more drinks on one occasion: never Score interpretation: A score less than 3 is consistent with normal alcohol consumption. 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 Known occupational exposures/hazards: No Highest level of school completed/degree received: high school graduate Little interest or pleasure in doing things: not at all Feeling down, depressed, or hopeless: not at all Do you think of yourself as: straight/heterosexual Gender Identity: female Meds Home Medications and Allergies Home Medications ?Medication ?Instructions ?Recorded ?Confirmed ?Type duloxetine 30 mg capsule,delayed 60 mg PO DAILY 06/19/23 07/19/23 History release (Cymbalta) zolpidem 10 mg tablet (Ambien) 10 mg PO DAILY PRN insomnia 07/11/23 07/19/23 History pantoprazole 40 mg tablet,delayed 40 mg PO DAILY #7 tabs 02/26/24 Rx release (Protonix) cyclobenzaprine 10 mg tablet 10 mg PO TID PRN muscle spasm 01/31/25 01/31/25 History fexofenadine 180 mg tablet 180 mg PO DAILY 01/31/25 01/31/25 History (Layla Allergy) gabapentin 300 mg capsule 900 mg PO TID 01/31/25 01/31/25 History (Neurontin) lamotrigine 25 mg tablet (Lamictal) 25 mg PO DAILY 01/31/25 01/31/25 History meloxicam submicronized 10 mg 15 mg PO DAILY 01/31/25 01/31/25 History capsule (Vivlodex) tolterodine 4 mg capsule,extended 4 mg PO DAILY 01/31/25 01/31/25 History release 24 hr (Detrol LA) vitamin B12 500 mcg-folic acid 400 1 tab PO DAILY 01/31/25 01/31/25 History mcg tablet Allergies Allergy/AdvReac Type Severity Reaction Status Date / Time Penicillins Allergy Severe Hives Verified 08/01/24 12:59 Exam Narrative Exam Narrative: Psych-alert and oriented x 3. Attentive and appropriate, constitutionally normal, displays normal mood and affect per situation. There are no obvious deficits in memory, reasoning, or intellect.? Skin-no obvious rashes, bruising, erythema noted to the patient's area of pain.? Extremities- extremities are warm with minimal edema and palpable pulses. Cervical- tenderness to palpation noted in the cervical spine and paraspinal musculature.? Pain is elicited with flexion, extension, and lateral rotation of the cervical spine.? Range of motion is diminished due to pain. Facet loading maneuvers are positive.? Strength-unremarkable and within normal limits with the exception to the right biceps. Sensory-no notable sensory deficits in the bilateral upper extremities to touch or pinprick with the exception to decreased sensation to the right C5, 6 dermatomal distribution. Lumbar-tenderness to palpation noted in the lumbar spine and paraspinal musculature. Pain is not elicited with flexion, extension, and lateral rotation of the lumbar spine. Range of motion is not diminished with these motions. Facet loading maneuvers are negative.? Strength-noted to be unremarkable with the exception of decreased strength rated at 4 out of 5 in right quadriceps femoris, anterior tibialis. Sensory-no notable sensory deficits in the bilateral lower extremities to touch or pinprick in all dermatomal distributions with the exception to decreased sensation to the right L4, 5 dermatomal distribution Coordination remains intact.? Gait remains non-antalgic. Results Imaging cervical mri: Attestation: I have reviewed the pertinent imaging results. Radiologist's impression: The craniocervical junction is maintained. Cervical vertebral heights and alignment and bone marrow signal is unremarkable. Mild multilevel intervertebral space narrowing C3-C7. Multilevel facet arthropathy. Cervical cord demonstrate normal signal and morphology. Prevertebral and paraspinal soft tissues are unremarkable. C2-C3: Broad-based bulge minor facet arthropathy. Canal neural foraminal pain. C3-C4: Broad-based disc bulge with uncovertebral spurring. Moderate right and mild left neural foraminal narrowing. Canal is patent. C4-C5: Broad-based disc bulge. Uncovertebral spurring greatest right. Moderate right and ukjp-kx-aurkcnmu left-sided neural foraminal narrowing. Mild canal narrowing. C5-6: Broad-based disc bulge with uncovertebral spurring, greatest left. Moderate right-sided moderate to severe left-sided neural foraminal narrowing. Mild central canal stenosis. C6-C7: Broad-based disc osteophyte complex with uncovertebral spurring. Gdeb-ok-ipxhlpur right moderate severe left neural foraminal narrowing. Gjes-ae-gwulpmbd canal narrowing. C7-T1: Minimal vertebral hypertrophy. Moderate facet arthropathy. Canal and patent. Mild foraminal narrowing. lumbar mri: Attestation: I have reviewed the pertinent imaging results. Radiologist's impression: Lumbar vertebral heights, alignment and bone marrow signal is unremarkable. Mild levocurvature. Moderate intervertebral space narrowing L5-S1. Mild intervertebral space narrowing L4-5. Multilevel arthropathy notably L3-S1. Schmorl's node deformities identified L5-S1. Conus medullaris terminates normally at inferior plate of L1. Paraspinal soft tissues unremarkable. On T12-L1: Visualized sagittal images. No significant disease central canal or neural from narrowing identified . L1-2: Mild disc desiccation. No focal disc protrusion central canal or neural from narrowing. Mild to moderate facet arthropathy. L2-L3: Disc desiccation. Mild to moderate facet arthropathy. Canal and neural foramen are patent. L3-4: Broad-based disc bulge with central T2 hyperintense annular fissure. Moderate facet arthropathy. Otherwise the canal is patent. Right foramen is patent. Mild left foraminal narrowing. L4-5: Circumferential disc bulge with central T2 hyperintense annular fissure and minimal focal central extrusion. Moderate facet arthropathy. Mild canal narrowing. Mild neural from narrowing. L5-S1: Circumferential disc bulge with moderate facet arthropathy. Iorx-ux-vhgosonl right-sided and mild left-sided neural foraminal narrowing . Assessment and Plan Assessment and Plan (1) Cervical stenosis of spinal canal: (2) Lumbar stenosis with neurogenic claudication: Plan 54yof who presents for evaluation. failed conservative measures, as noted. imaging reviewed, as noted. given symptoms and imaging, would recommend right C5-6 C6-7 TFESI under fluoroscopy with 10mg po valium for anxiolysis. refer to [facility] for consultation of cervical stenosis in consideration of future surgical intervention per pt request. continue current medications. f/u 2 weeks after TFESI.
== END 2025-02-20 15:29 | disposition home or self-care (01) ==
LOC: PM 15:28
PROVIDERS: PCP Nurse Practitioner; Visit Provider Nurse Practitioner
DX: M48.02 Spinal stenosis, cervical region (principal); M48.062 Spinal stenosis, lumbar region with neurogenic claudication
CPT/HCPCS: G0463

== ENCOUNTER 2025-02-26 14:25 | Outpatient (OUT) | payer OTHER, SELFPAY ==
--- OUTSIDE RECORDS SUMMARY | 2024-09-04 11:15 | XMS_ITS ---
Author Organization The [facility] in [place] Address [address] [place] [address] Care Team Providers Care Plumber Cub Name Role Phone None, Unknown or Primary Care Provider Unavailab Mathew Lee Unavailable [phone] Allergies Allergen (clinical drug ingredient) Drug/Non Drug [...] Problem Status W/U Status Risk Notes Problem [id number] Primary osteoarthrit is, left ankle and foot (M19.072) Active confirmed Vital Signs Heart Rate 84 /min 09/04/2024 Respiratory Rate 16 /min 09/04/2024 Oximetry 98 % 09/04/2024 Encounters Encounter Location Date Provider Diagnosis [facility] [place] (PODIATRY) [address] [place] [address] [place] [address] 09/04/2024 Mathew Hoff Pain due to internal [...] * Talia RUTHERFORDDOB:[birth year] (54 yo F)Acc No.[id number]:09/04/2024 Follow Up Patient: Talia FREED Provider: Miguel Hoff DPM, MS :1970 A ge:54 Y S ex:Female Date:09/04/2024 Address:[address] [place], [id number] Pcp:Unknown or None Check In:03:07 PM ESTCheck [...] M usculoskeletal: Bone/Joint Symptoms d enies. C longterm Pain d enies.?Leg cramps d enies. N [...] 09/04/2024 Generated for Taina marina/Nhi/Josiasitting on: 0 02/26/2025 02:28 PM EDT History and Physical Notes * [...]
--- OUTSIDE RECORDS SUMMARY | 2024-09-04 11:53 | XMS_ITS ---
Author Organization [facility] in [place] Address [address] [place] [address] Care Team Providers Care Head Bookkeeper Name Role Phone None, Unknown or Primary Care Provider Unavailab Mathew Lee [phone] REASON FOR VISIT meds Medications Medication SIG (Take, Route, Fr equency, Duration) Notes Start Date End Date Status Meloxicam 15 MG 1 tablet Orally Once a day for 30 days 09/04/2024 Active Encounters Encounter Location Date Provider Diagnosis [facility] (PODIATRY) [address] [place] [address] [place] [address] 09/04/2024 Mathew Hoff Plan Of Treatment Medication Medication Name Sig Start Date Stop Date Notes Meloxicam 15 MG 1 tablet Orally Once a day for 30 days 06/2025 Progress Notes * Talia MERCADODOB:[birth year] (54 yo F)Acc No.[id number]:09/04/2024 Patient: Talia FREED :1970 A ge:54 Y S ex:Female Address:[address] [place], [address] * Refills Start Meloxicam Tablet, 15 MG, Orally, 30, 1 tablet, Once a day, 30 days, Refills=3 * true * Date: Generated for Lbi ng/Fadoloresg/eTransmitting on: 0 02/26/2025 02:29 PM EDT
--- OUTSIDE RECORDS SUMMARY | 2024-09-18 11:30 | XMS_ITS ---
Author Organization The [facility] in [place] Address [address] [place] [address] Care Team Providers Care Furniture Mechanic Name Role Phone None, Unknown or Primary Care Provider Unavailab Mathew Lee Unavailable [phone] Allergies Allergen (clinical drug ingredient) Drug/Non Drug [...] Encounters Encounter Location Date Provider Diagnosis [facility] (PODIATRY) [address] [place] [address] [place] [address] 09/18/2024 Mathew Hoff Pseudarthrosis after fusion or [...] Juan J RUTHERFORD:[birth year] (54 yo F)Acc No.[id number]:09/18/2024 Follow Up Patient: Lian FREEDyl Provider: Miguel Hoff DPM, MS :1970 A ge:54 Y S ex:Female Date:09/18/2024 Address:[address] [place], [id number] Pcp:Unknown or None Check In:03:18 PM ESTCheck [...] M usculoskeletal: Bone/Joint Symptoms d enies. C nursing home Pain d enies.?Leg cramps d enies. [...] 09/18/2024 Generated for Taina marina/Nhi/Josiasitting on: 0 02/26/2025 02:27 PM EDT History and Physical Notes * [...]
--- OUTSIDE RECORDS SUMMARY | 2025-02-24 15:00 | XMS_ITS | Encounter Summary ---
Author Organization [facility] Address [address] [place] [address] Care Team Providers Care Structural Steel Shop Supervisor Name Role Phone Molina De Anda MD Primary Care Provider [phone] Valerie Groves CAPTION WRITER Unavailable [phone] [facility]available + [phone] Reason for Visit * Reason Comments Med Management Follow-up Encounter Details Date Type Department Care Team (Late st Contact Info) Description 02/24/2025 3:00 PM EDT Office Visit [facility] [address] [facility] [address] [place] [address] Karime Dias [facility]- [address] [facility] [address] [place] [address] JESSIKA (generalized anxiety disorder) ; Severe [...] Health Questionnaire-2 Score 5 01/22/2025 [facility]at ional Health [...] Sheis working with the pain specialist at [facility] in hopes to get an epidural in [...] PM EDT Social Work [facility] [address] [place] [place] [address] Rohan Burns LPC 04/03/2025 9:00 AM EDT Telemedicine [facility] [address] [place] [address] Karime Dias PMHNP-BC [address] [place] [address] [place] [address] 04/30/2025 4:30 PM EDT Office Visit [facility] [address] [place] [address] Pascale Arana NP [address] [place] [address] documented as of this encounter Goals Goal [...] documented as of this encounter Care Teams Structural Steel Shop Supervisor Relationship Specialty Start Date End Date Molina De Anda MD [address] [place] [address] PCP - General Family Medicine 02/21/24 Valerie Groves NP [address] [place] [address] Nurse Practitioner Family Medicine 02/21/24 [facility] [address] [facility] [place] [address] Nurse Practitioner Behavioral Health 01/22/25 documented as of this encounter
--- OUTSIDE RECORDS SUMMARY | 2025-02-25 11:30 | XMS_ITS | Encounter Summary ---
Author Organization [facility] Address [address] [place] [address] Care Team Providers Care Custom Bike Builder Name Role Phone Molina De Anda MD Primary Care Provider [phone] Valerie Groves [employer] Unavailable [phone] Karime Dias [facility]- Unavailable + [phone] Reason for Visit * Reason Comments Bipolar disorder with severe depression Encounter Details Date Type Department Care Team (Late st Contact Info) Description 02/25/2025 11:30 AM EDT Office Visit [facility] [address] [place] [phone] Pascale Arana NP [address] [place] [address] Severe episode of recurrent major depressive disorder, without psychotic features (HCC) (Primary Dx); Cigarette nicotine dependence without complication; PTSD (post-traumatic stress disorder) ; Class 1 obesity due to excess calories without serious comorbidity with body mass index (BMI) of 32.0 to 32.9 in adult; Iron deficiency anemia secondary to inadequate dietary iron intake; Primary insomnia Social History Tobacco Use Types Packs/Day [...] How often do you attend chur or latter day services? Never 08/07/2023 Do you belong to any clubs o r organizations such as cheondoism groups, unions, fraternal or athletic groups, or [...] Recorded Patient Health Questionnaire-2 Score 5 01/22/2025 [facility] - [...] Sign Reading Time Taken Comments Blood Pressure 102/64 02/25/2025 11:31 AM EDT Pulse 99 02/25/2025 11:31 AM EDT Temperature 36.6 C (97.8 F) 02/25/2025 11:31 AM EDT Respiratory Rate - - Oxygen Saturation 97% 02/25/2025 11: 31 AM EDT Inhaled Oxygen Concentration - - Weight 78.4 kg (172 lb 12.8 oz) 025 11:31 AM EDT Height - - Body Mass Index 28.76 10/02/2024 4:51 PM EDT documented in this encounter Patient Instructions * Patient Instructions* Pascale Arana NP - 02/25/2025 11:30 AM EDT Off work RTW date 03/25/25 documented in this encounter Progress Notes * Pascale Arana NP - 02/25/2025 12:44 PM EDTAssociated Problem(s): Insomnia Current med: ambien Worse with depression/anxiety Cont working with psych * LIZANDRO PICKARD - 02/25/2025 11:30 AM EDT 5 bulging disc-2 in neck and 3 in L back Pt is very fatigue- sleeping 3 to 4 hrs at a time Pt would like to go back to the prevacid what she is taking now is causing burping and she would like to go back * Pascale Arana NP - 02/25/2025 11:30 AM EDT Images from the original note were not included. Talia Mercado is a 54 y.o. female presents with chief complaint of Bipolar disorder with severe depression HPI: Here for a recheck for her anxiety and depression She has been off work for last several weeks, she has seen psychologists, meds changed and she is now onVraylar, dose increased yesterday to 3mg No SI/HI/Hallucinations While she does not feel ready to RTW, she does want to RTW on 03/25/25 Counseling next week Sleep 4 hours, mind still racing, aggitates easy SUBJECTIVE: MEDICATIONS: Current Outpatient Medications Medication Instructions albuterol HFA 90 mcg/act inhaler 2 puffs, Inhalation, Every 6 hours PRN cyanocobalamin (VITAMIN B-12) 1,000 mcg, Daily RT cyclobenzaprine (FLEXERIL) 10 mg, Oral, 3 times daily PRN DULoxetine (CYMBALTA) 60 mg, Oral, Daily DULoxetine (CYMBALTA) 30 mg, Oral, Daily estradiol (ESTRACE) 1.5 g, 2 times weekly fexofenadine (HUNG ALLERGY) 180 mg, Oral, Daily fluticasone (Flonase) 50 MCG/ACT nasal spray 2 sprays, Each Nostril, Daily, Shake gently. Before first use, prime pump. After use, clean tip and replace cap. gabapentin (NEURONTIN) 300 mg, Oral, 3 times daily lansoprazole (PREVACID) 30 mg, Oral, Daily before breakfast meloxicam (MOBIC) 15 mg, Daily PRN pantoprazole (PROTONIX) 40 mg, Oral, Daily, Do not crush, chew, or split. tolterodine LA (DETROL LA) 4 mg, Daily Vraylar 3 mg, Oral, Daily zolpidem (AMBIEN) 10 mg, Oral, Nightly PRN ALLERGIES: Allergies Allergen Reactions Penicillins Hives REVIEW OF SYMPTOMS: Review of Systems Constitutional: [...] self-injury and suicidal ideas. The patient is nervous/anxious. Depression Hematological: Does not bruise/bleed easily. Endocrine: Negative [...] dehiscence Tobacco use disorder Uterovaginal prolapse Varicella Past Surgical History: Procedure Laterality Date CHOLECYSTECTOMY COLPORRHAPHY ENTEROCELE REPAIR GASTRIC BYPASS OTHER SURGICAL HISTORY Back injections and nerve cauterization TUBAL LIGATION family history includes Breast cancer in her maternal grandmother and mother's sister; Depression in her mother; Diabetes in her father and mother; Heart disease in her father; Hypertension in her father; Stroke in her father; Thyroid cancer in her maternal grandmother. OBJECTIVE: Visit Vitals BP 102/64 (BP Location: Left arm, Patient Position: Sitting, BP Cuff Size: Adult long) Pulse 99 Temp 97.8 ??F (Temporal) Wt 172 lb 12.8 oz SpO2 97% BMI 28.76 kg/m?? Smoking Status Every Day BSA 1.9 m?? Physical Exam Vitals and nursing note [...] Normal pulses. Heart sounds: Normal heart sounds. No murmur heard. Pulmonary: Effort: Pulmonary effort is normal. Breath [...] Content: Thought content normal. Judgment: Judgment normal. Comments: tearful ASSESSMENT AND PLAN: No follow-ups on file. Problem List Items Addressed This Visit Insomnia Current med: ambien Worse with depression/anxiety Cont working with psych Iron deficiency anemia Cannot tolerate oral iron supplements Has been referred for IV iron infusions, completed X1 a few weeks ago Feeling better Recheck labs Relevant Orders CBC and differential Iron level Nicotine dependence The patient has been advised of the risks of continued smoking: stroke, [place], all forms of cancer, lung disease, and . Options for quitting smoking include: cold turkey, hypnosis, acupuncture, nicotine replacement meds(gum, lozenges, and patches), Buproprion, and Varenicline. At this time pt is encouraged to evaluate their goals for wanting to quit smoking, and reach out toprovider when ready to start this process Class [...] to 1600 calories daily if no contraindications Has done adipex, also has had weight loss surgery in the past Severe episode of recurrent major depressive disorder, without psychotic features (HCC) - Primary Was referred to psych, they are currently managing meds Is off on FMLA for this PTSD (post-traumatic stress disorder) Dx as per psych * Pascale Arana NP - 02/25/2025 7:28 AM EDTAssociated Problem(s): Iron deficiency anemia Cannot tolerate oral iron supplements Has been referred for IV iron infusions, completed X1 a few weeks ago Feeling better Recheck labs * Pascale Arana NP - 02/25/2025 7:24 AM EDTAssociated Problem(s): Class 1 obesity due to excess calories without serious comorbidity in adult Discussed with patient their BMI (actual, verses recommended). We have also discussed lifestyle modifications: attempts to perform physical activity as chronic conditions allow, also to monitor dietary intake: increasing protein/fruits/veggies and lowering carb intake (unless contraindicated). Limit sodas, juices, and sugary drinks. Pt meets qualifications of [facility] [id number] for weight loss. BMI>30 or >27 with comorbid conditions. Notify office with any symptoms of chest pain, dyspnea, heart palpitations, or any anxiety symptoms. F/U in 4 weeks to document weight loss. Increase physical activity as tolerated, and lower caloric intake to 1600 calories daily if no contraindications Has done adipex, also has had weight loss surgery in the past * Pascale Arana NP - 02/25/2025 7:23 AM EDTAssociated Problem(s): PTSD (post- traumatic stress disorder) Dx as per psych * Pascale Arana NP - 02/25/2025 7:23 AM EDTAssociated Problem(s): Severe episode of recurrent major depressive disorder, without psychotic features (HCC) Was referred to psych, they are currently managing meds Is off on FMLA for this * Pascale Arana NP - 02/25/2025 7:23 AM EDTAssociated Problem(s): Nicotine dependence The patient has been advised of the risks of continued smoking: stroke, [place], all forms of cancer, lung disease, and . Options for quitting smoking include: cold turkey, hypnosis, acupuncture, nicotine replacement meds(gum, lozenges, and patches), Buproprion, and Varenicline. At this time pt is encouraged to evaluate their goals for wanting to quit smoking, and reach out toprovider when ready to start this process documented in this encounter Plan of Treatment Upcoming Encounters Date Type Department Care Team (Late st Contact Info) Description 03/06/2025 3:00 PM EDT Social Work [facility] [address] [place] [address] [place] [address] Rohan Burns LPC 04/03/2025 9:00 AM EDT Telemedicine [facility] [address] [place] [address] Karime Dias [facility]- [address] [place] [address] [place] [address] 04/30/2025 4:30 PM EDT Office Visit [facility] [address] [place] [address] Pascale Arana NP [address] [place] [address] Scheduled Orders Name Type Priority Associated Diagnoses Orde r Schedule CBC and differential Lab Routine Iron deficiency anemia secondary to inadequate dietary iron intake Expected: 02/25/2025 (Approximate), Expires: 02/25/2026 Iron level Lab Routine Iron deficiency anemia secondary to inadequate dietary iron intake Expected: 02/25/2025 (Approximate), Expires: 02/25/2026 documented as of this encounter Goals Goal Patient Goal Type Associated Problems Recent Progress Patient-Stated? Author Help patient manage antidepressant medication Care Plan Patient on antidepressant monitoring plan No Shaikh Main MD documented as of this encounter Visit Diagnoses Diagnosis Severe episode of recurrent major depressive disorder, without psychotic features (HCC)- Primary Cigarette nicotine dependence without complication PTSD (post-traumatic stress disorder) Posttraumatic stress disorder Class 1 obesity due to excess calories without serious comorbidity with body mass index (BMI) of 32.0 to 32.9 in adult Iron deficiency anemia secondary to inadequate dietary iron intake Primary insomnia Persistent disorder of initiating or maintaining sleep documented in this encounter Additional Health Concerns Active Problems Noted Date Diagnosed Date Patient on antidepressant monitoring plan 2023 Assessment Noted Time PHQ-9 Depression Total Score: 21 025 9:29 AM EDT documented as of this encounter Care Teams Custom Bike Builder Relationship Specialty Start Date End Date Molina De Anda MD [address] [place] [address] PCP - General Family Medicine 02/21/24 Valerie Groves NP [address] [place] [address] Nurse Practitioner Family Medicine 02/21/24 Karime Dias PMHNP- [address] [facility] [place] [address] Nurse Practitioner Behavioral Health 01/22/25 documented as of this encounter
--- OUTSIDE RECORDS SUMMARY | 2025-02-26 14:27 | XMS_ITS | Encounter Summary ---
Author Organization [facility] Address [address] [place] [address] Care Team Providers Care Black Belt Name Role Phone Molina De Anda MD Primary Care Provider [phone] Valerie Groves REGIONAL REFRIGERATED CDL TRUCK DRIVER Unavailable [phone] [facility] + [phone] Encounter Details Date Type Department Care Team (Late st Contact Info) Description 02/18/2025 Abstract [facility] [address] [place] [address] Pascale Arana NP [address] [place] [address] Social History Tobacco Use Types Packs/Day Years [...] place to sleep or slept in a assisted (including now)? No 08/07/2023 Comments Unknown Sex [...] [facility] [address] [facility] [address] [place] [address] Rohan Burns LPC 04/03/2025 9:00 AM EDT Telemedicine [facility] [address] [place] [address] Karime Dias, PMHNP- [address] [place] [place] [address] 04/30/2025 4:30 PM EDT Office Visit [facility] [address] [place] [address] Pascale Arana NP [address] [place] [address] documented as of this encounter Goals Goal [...] documented as of this encounter Care Teams Black Belt Relationship Specialty Start Date End Date Molina De Anda MD [address] [address] PCP - General Family Medicine 02/21/24 Valerie Groves NP [address] [place] [address] Nurse Practitioner Family Medicine 02/21/24 [facility] [address] [address] [place] [address] Nurse Practitioner Behavioral Health 01/22/25 documented as of this encounter
--- OUTSIDE RECORDS SUMMARY | 2025-02-26 14:27 | XMS_ITS | Encounter Summary ---
Author Organization [facility] Address [facility] [id number] [address] [place] [address] Care Team Providers Care Skull Splitter Name Role Phone No Pcp, No Pcp Primary Care Provider Unavailabl e Encounter Details Date Type Department Care Team (Late Contact Info) Description 02/24/2025 Abstract [facility] - Urogynecology [address] [facility] [address] [place] [address] Tania Asif MD [address] [facility] [address] [place] [address] Social History Tobacco Use Types Packs/Day Years Used Date Smoking Tobacco: Every Day Cigarettes 1 35 Smokeless Tobacco: Never Alcohol Use Standard Drinks/Week Comments Yes 0 (1 standard drink = 0.6 oz [...] Encounters Date Type Department Care Team (Late Contact Info) Description 04/02/2025 3:00 PM EDT Office Visit [facility] - Urogyn [address] [address] [place] [address] [place] [address] Tania Asif MD [address] [place] [address] documented as of this encounter Visit Diagnoses Not on filedocumented in this encounter Care Teams Skull Splitter Relationship Specialty Start Date End Date No Pcp, [place] [address] PCP - General Family Medicine 11/21/18 documented as of this encounter
--- OUTSIDE RECORDS SUMMARY | 2025-02-26 14:28 | XMS_ITS | Encounter Summary ---
Author Organization [facility] Address [address] [place] [address] Care Team Providers Care Porter Used Car Lot Name Role Phone Molina De Anda MD Primary Care Provider [phone] Valerie Groves CD MANUFACTURING SUPERVISOR Unavailable [phone] [facility] + [phone] Encounter Details Date Type Department Care Team (Late st Contact Info) Description 02/24/2025 Bamboo flowsheet [facility] [address] [facility] [address] [place] [address] Karime Dias [facility]- [address] [facility] [address] [place] [address] Social History Tobacco Use Types Packs/Day [...] How often do you attend chur or mandaen services? Never 08/07/2023 Do you belong to any clubs o r organizations such as worship groups, unions, fraternal or athletic groups, or [...] Recorded Patient Health Questionnaire-2 Score 5 01/22/2025 [facility] of Occupat ional Health - [...] [address] [place] [address] [place] [address] Rohan Burns LPC 04/03/2025 9:00 AM EDT Telemedicine [facility] [address] [place] [address] Karime Dias, [facility] [address] [place] [address] [place] [address] 04/30/2025 4:30 PM EDT Office Visit [facility] [address] [place] [address] Pascale Arana, MARY JO [address] [place] [address] documented as of this encounter Goals Goal [...] documented as of this encounter Care Teams Porter Used Car Lot Relationship Specialty Start Date End Date Molina De Anda MD [address] [place] [address] PCP - General Family Medicine 02/21/24 Valerie Groves NP [address] [place] [address] Nurse Practitioner Family Medicine 02/21/24 Karime Di[facility] [address] [address] [place] [address] Nurse Practitioner Behavioral Health 01/22/25 documented as of this encounter
--- OUTSIDE RECORDS SUMMARY | 2025-02-26 14:28 | XMS_ITS | Encounter Summary ---
Author Organization [facility] Address [address] [place] [address] Care Team Providers Care Legal Support Manager Name Role Phone Molina De Anda MD Primary Care Provider [phone] Valerie Groves WAX PATTERN COATER Unavailable [phone] [facility] + [phone] Encounter Details Date Type Department Care Team (Late st Contact Info) Description 02/26/2025 Telephone [facility] [address] [place] [address] Pascale Arana NP [address] [place] [address] Social History Tobacco Use Types Packs/Day Years [...] How often do you attend chur or zoroastrian services? Never 08/07/2023 Do you [...] Recorded Patient Health Questionnaire-2 Score 5 01/22/2025 [facility] of Occupat ional Health - Occupational [...] * Telephone Encounter - LIZANDRO PICKARD - 02/26/2025 9:51 AM EDT PT CALLED documented in this encounter Plan of Treatment Upcoming Encounters Date Type Department Care Team (Late st Contact Info) Description 03/06/2025 3:00 PM EDT Social Work [facility] [address] [place] [address] Rohan Burns LPC 04/03/2025 9:00 AM EDT Telemedicine [facility] [address] [place] [address] Karime Dias, PMHNP- [address] [place] [place] [address] 04/30/2025 4:30 PM EDT Office Visit [facility] [address] [place] [address] Pascale Arana NP [address] [place] [address] documented as of this encounter Goals Goal [...] documented as of this encounter Care Teams Legal Support Manager Relationship Specialty Start Date End Date Molina De Anda MD [address] [place] [address] PCP - General Family Medicine 02/21/24 Valerie Groves NP [address] [place] [address] Nurse Practitioner Family Medicine 02/21/24 Karime Dias [facility] [address] [facility] [place] [address] Nurse Practitioner Behavioral Health 01/22/25 documented as of this encounter
--- OUTSIDE RECORDS SUMMARY | 2025-02-26 14:28 | XMS_ITS | Encounter Summary ---
Author Organization [facility] Address [address] [place] [address] Care Team Providers Care Art Framing Manager Name Role Phone Molina De Anda MD Primary Care Provider [phone] Valerie Groves LUBRICATION SERVICER Unavailable [phone] [facility] + [phone] Encounter Details Date Type Department Care Team (Late st Contact Info) Description 02/25/2025 Abstract [facility] [address] [place] [address] Pascale Arana NP [address] [place] [address] Social History Tobacco Use Types Packs/Day Years [...] How often do you attend chur or jainism services? Never 08/07/2023 Do you belong to any clubs o r organizations such as confucianist groups, unions, fraternal or athletic groups, or [...] Recorded Patient Health Questionnaire-2 Score 5 01/22/2025 [facility] of Occupat ional Health - Occupational Stress [...] [facility] [address] [facility] [address] [place] [address] Rohan Burns LPC 04/03/2025 9:00 AM EDT Telemedicine [facility] [address] [place] [address] Karime Dias, PMHNP- [address] [place] [address] [place] [address] 04/30/2025 4:30 PM EDT Office Visit [facility] [address] [place] [address] Pascale Arana NP [address] [place] [address] documented as of this encounter Goals Goal [...] documented as of this encounter Care Teams Art Framing Manager Relationship Specialty Start Date End Date Molina De Anda MD [address] [place] [address] PCP - General Family Medicine 02/21/24 Valerie Groves NP [address] [place] [address] Nurse Practitioner Family Medicine 02/21/24 [facility] [address] [address] [place] [address] Nurse Practitioner Behavioral Health 01/22/25 documented as of this encounter
--- OUTSIDE RECORDS SUMMARY | 2025-02-26 14:28 | XMS_ITS | Encounter Summary ---
Author Organization [facility] Address [address] [place] [address] Care Team Providers Care Dredge Worker Name Role Phone Molina De Anda MD Primary Care Provider [phone] Valerie Groves FUR BLOWER OPERATOR Unavailable [phone] [facility] + [phone] Reason for Visit * Reason Onset Date Comments Error (VOID this visit) 02/17/2025 Encounter Details Date Type Department Care Team (Late st Contact Info) Description 02/17/2025 [facility] [address] [place] [address] Pascale Arana NP [address] [place] [address] Error (VOID this visit) Social History Tobacco [...] How often do you attend chur or synagogue services? Never 08/07/2023 Do you belong to any clubs o r organizations such as sikh groups, unions, fraternal or athletic groups, or [...] Recorded Patient Health Questionnaire-2 Score 5 01/22/2025 [facility] - Occupational Stress Questionnaire Answer Date [...] [facility] [address] [facility] [address] [place] [address] Rohan Burns LPC 04/03/2025 9:00 AM EDT Telemedicine [facility] [address] [place] [address] Karime Dias, [facility] [address] [facility] [address] [place] [address] 04/30/2025 4:30 PM EDT Office Visit [facility] [address] [place] [address] Pascale Arana, MARY JO [address] [place] [address] documented as of this encounter Goals Goal [...] documented as of this encounter Care Teams Dredge Worker Relationship Specialty Start Date End Date Molina De Anda MD [address] [place] [address] PCP - General Family Medicine 02/21/24 Valerie Groves NP [address] [place] [address] Nurse Practitioner Family Medicine 02/21/24 [facility] Di[facility] [address] [facility] [place] [address] Nurse Practitioner Behavioral Health 01/22/25 documented as of this encounter
--- OUTSIDE RECORDS SUMMARY | 2025-02-26 14:28 | XMS_ITS | Encounter Summary ---
Author Organization [facility] Address [address] [place] [address] Care Team Providers Care Sheet Rock Applier Name Role Phone Molina De Anda MD Primary Care Provider [phone] Valerie Groves COSMETOLOGY PROFESSOR Unavailable [phone] Karime Dias [facility]- Unavailable + [phone] Reason for Visit * Reason Comments Med Refill Encounter Details Date Type Department Care Team (Late st Contact Info) Description 02/11/2025 Refill [facility] [address] [place] [address] Pascale Arana NP [address] [place] [address] UTI (urinary tract infection), uncomplicated; Class 1 [...] How often do you attend chur or mormonism services? Never 08/07/2023 Do you [...] Recorded Patient Health Questionnaire-2 Score 5 01/22/2025 [facility] of Occupat ional Health - Occupational Stress [...] Health [address] [place] [address] [place] [address] Rohan Burns LPC 04/03/2025 9:00 AM EDT Telemedicine [facility] [address] [place] [address] Karime Dias, PMHNP- [address] [place] [place] [address] 04/30/2025 4:30 PM EDT Office Visit [facility] [address] [place] [address] Pascale Arana NP [address] [place] [address] documented as of this encounter Goals Goal [...] comorbidity in adult, unspecified BMI BMI 32.0-32.9,adult documented in this encounter Additional Health Concerns Active Problems Noted Date Diagnosed Date Patient on antidepressant monitoring plan 2023 Assessment Noted Time PHQ-9 Depression Total Score: 21 025 9:29 AM EDT documented as of this encounter Care Teams Sheet Rock Applier Relationship Specialty Start Date End Date Molina De Anda MD [address] [place] [address] PCP - General Family Medicine 02/21/24 Valerie Groves NP [address] [place] [address] Nurse Practitioner Family Medicine 02/21/24 [facility] [address] [place] [address] [place] [address] Nurse Practitioner Behavioral Health 01/22/25 documented as of this encounter
--- OUTSIDE RECORDS SUMMARY | 2025-02-26 14:28 | XMS_ITS | Encounter Summary ---
Author Organization [facility] Address [address] [place] [address] Care Team Providers Care Cardiac Technician Name Role Phone Molina De Anda MD Primary Care Provider [phone] Valerie Groves PLASMA PROCESSING TECHNICIAN Unavailable [phone] Karime Dias PMHNP- Unavailable + [phone] Encounter Details Date Type Department Care Team (Latest Contact Info) Description 02/24/2025 Travel Social History Tobacco Use Types Packs/Day [...] any clubs o r organizations such as orthodox groups, unions, fraternal or athletic groups, [...] Recorded Patient Health Questionnaire-2 Score 5 01/22/2025 [facility] of Occupat ional Health - Occupational [...] Health [address] [place] [address] [place] [address] Rohan Burns LPC 04/03/2025 9:00 AM EDT Telemedicine [facility] [address] [place] [address] Karime Dias [facility] [address] [place] [address] [place] [address] 04/30/2025 4:30 PM EDT Office Visit [facility] [address] [place] [place] [address] Pascale Arana NP [address] [place] [address] documented as of this encounter Goals Goal [...] documented as of this encounter Care Teams Cardiac Technician Relationship Specialty Start Date End Date Molina De Anda MD [address] [place] [address] PCP - General Family Medicine 02/21/24 Valerie Groves NP [address] [place] [address] Nurse Practitioner Family Medicine 02/21/24 [facility] [address] [address] [place] [address] Nurse Practitioner Behavioral Health 01/22/25 documented as of this encounter
--- OUTSIDE RECORDS SUMMARY | 2025-02-26 14:28 | XMS_ITS | Encounter Summary ---
Author Organization [facility] Address [address] [place] [address] Care Team Providers Care Cofounder Name Role Phone Molina De Anda MD Primary Care Provider [phone] Valerie Groves CHANGE OVER Unavailable [phone] Karime Dias [facility]- Unavailable + [phone] Encounter Details Date Type Department Care Team (Late st Contact Info) Description 02/26/2025 Refill [facility] [address] [place] [address] Pascale Arana NP [address] [place] [address] Gastroesophageal reflux disease, unspecified whether esophagitis present (Primary Dx) Social History Tobacco Use Types [...] 08/07/2023 How often do you attend chur Spine Wave or uatsdin services? Never 08/07/2023 Do you [...] Recorded Patient Health Questionnaire-2 Score 5 01/22/2025 [facility] of Occupat ional Health - [...] [facility] [address] [place] [address] [place] [address] Rohan Burns LPC 04/03/2025 9:00 AM EDT Telemedicine [facility] [address] [place] [address] Karime Dias [facility] [address] [place] [address] [place] [address] 04/30/2025 4:30 PM EDT Office Visit [facility] [address] [place] [address] Pascale Arana, MARY JO [address] [place] [address] documented as of this encounter Goals Goal Patient Goal Type Associated Problems Recent Progress Patient-Stated? Author Help patient manage antidepressant medication Care Plan Patient on antidepressant monitoring plan No Shaikh Main MD documented as of this encounter Visit Diagnoses Diagnosis Gastroesophageal reflux disease, unspecified whether esophagitis present- Primary documented in this encounter Additional Health Concerns Active Problems Noted Date Diagnosed Date Patient on antidepressant monitoring plan 2023 Assessment Noted Time PHQ-9 Depression Total Score: 21 025 9:29 AM EDT documented as of this encounter Care Teams Cofounder Relationship Specialty Start Date End Date Molina De Anda MD [address] [place] [address] PCP - General Family Medicine 02/21/24 Valerie Groves NP [address] [place] [address] Nurse Practitioner Family Medicine 02/21/24 Karime Dias PMHNP- [address] [facility] [place] [address] Nurse Practitioner Behavioral Health 01/22/25 documented as of this encounter
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
--- OUTSIDE RECORDS SUMMARY | 2025-02-26 14:28 | XMS_ITS | Encounter Summary ---
Author Organization [facility] Address [address] [place] [address] Care Team Providers Care County Ordinary Name Role Phone Shaikh NITHIN Main Primary Care Provider [phone] Shaikh NITHIN Main Primary Care Provider [phone] Molina De Anda MD Primary Care Provider [phone] Valerie Groves MOVE COORDINATOR Unavailable [phone] Karime Dias [facility]- Unavailable [phone] Reason for Visit * Reason Comments Med Refill Encounter Details Date Type Department Care Team (Late st Contact Info) Description 10/16[facility]2023 [facility] [address] [place] [address] Shaikh Main MD [address] [place] [address] Psychophysiological insomnia Social History Tobacco Use Types [...] any clubs o r organizations such as temple groups, unions, fraternal or athletic groups, or [...] Recorded Patient Health Questionnaire-2 Score 6 08/03/2023 [facility] of Occupat ional Health - Occupational Stress [...] [address] [place] [address] Rohan Burns LPC 04/03/2025 9:00 AM EDT Telemedicine [facility] [address] [place] [address] Karime Dias, PMHNP- [address] [place] [place] [address] 04/30/2025 4:30 PM EDT Office Visit [facility] [address] [place] [address] Pascale Arana NP [address] [place] [address] documented as of this encounter Goals Goal [...] documented as of this encounter Care Teams [place] Ordinary Relationship Specialty Start Date End Date Shaikh Main MD PCP - General Internal Medicine 04/20/23 01/07/24 Shaikh Main MD [address] [place] [address] PCP - General Internal Medicine 01/08/24 02/20/24 Molina De Anda MD [address] [place] [address] PCP - General Family Medicine 02/21/24 Valerie Groves NP [address] [place] [address] Nurse Practitioner Family Medicine 02/21/24 Karime Dias, [facility] [address] [place] [address] [place] [address] Nurse Practitioner Behavioral Health 01/22/25 documented as of this encounter
--- OUTSIDE RECORDS SUMMARY | 2025-02-26 14:29 | XMS_ITS | Encounter Summary ---
Author Organization [facility] Address [address] [place] [address] Care Team Providers Care Flavor Maker Name Role Phone Shaikh NITHIN Main Primary Care Provider [phone] Shaikh NITHIN Main Primary Care Provider [phone] Molina De Anda MD Primary Care Provider [phone] Valerie Groves WEIGHT SHIFTER Unavailable [phone] Karime Dias [facility]- Unavailable Encounter Details Date Type Department Care Team (Late st Contact Info) Description 08/07/2023 Orders Only [facility] [address] [place] [address] Shaikh Main MD [address] [place] [address] Social History Tobacco Use Types Packs/Day Years [...] r organizations such as synagogue groups, unions, fraternal or athletic groups, or [...] Recorded Patient Health Questionnaire-2 Score 6 08/03/2023 [facility] of Occupat ional Health - Occupational Stress [...] [address] [place] [place] [address] Rohan Burns LPC 04/03/2025 9:00 AM EDT Telemedicine [facility] [address] [place] [address] Karime Dias [facility] [address] [place] [place] [address] 04/30/2025 4:30 PM EDT Office Visit [facility] [address] [place] [address] Pascale Arana, MARY JO [address] [place] [address] documented as of this encounter Goals Goal [...] TSH W/REFLEX T4 (07/28/2023 11:37 AM EST) us Shaikh Etelvina [facility] BLOOD ORDERABLES Final Resu lt documented in this encounter Visit Diagnoses Not on filedocumented in this encounter Additional Health Concerns Active Problems Noted Date Diagnosed Date Patient on antidepressant monitoring plan 2023 Assessment Noted Time PHQ-9 Depression Total Score: 23 024 4:27 PM EST documented as of this encounter Care Teams Flavor Maker Relationship Specialty Start Date End Date Shaikh Main MD PCP - General Internal Medicine 04/20/23 01/07/24 Shaikh Main MD [address] [place] [address] PCP - General Internal Medicine 01/08/24 02/20/24 Molina De Anda MD [address] [place] [address] PCP - General Family Medicine 02/21/24 Valerie Groves NP [address] [place] [address] Nurse Practitioner Family Medicine 02/21/24 Karime Dias PMHNP- [address] [address] [place] [address] Nurse Practitioner Behavioral Health 01/22/25 documented as of this encounter
--- OUTSIDE RECORDS SUMMARY | 2025-02-26 14:29 | XMS_ITS | Encounter Summary ---
Author Organization [facility] Address [address] [place] [address] Care Team Providers Care Concrete Products Machine Operator Name Role Phone Molina De Anda MD Primary Care Provider [phone] Valerie Groves FEATHER MIXER Unavailable [phone] Karime Dias [facility] Unavailable + [phone] Encounter Details Date Type Department Care Team (Late st Contact Info) Description 02/21/2025 Abstract [facility] [address] [place] [address] Pascale Arana NP [address] [place] [address] Social History Tobacco Use Types Packs/Day Years [...] Recorded Patient Health Questionnaire-2 Score 5 01/22/2025 [facility] of Occupat ional Health - Occupational [...] [facility] [address] [place] [address] Rohan Burns LPC 04/03/2025 9:00 AM EDT Telemedicine [facility] [address] [place] [address] Karime Dias, PMHNP- [address] [place] [place] [address] 04/30/2025 4:30 PM EDT Office Visit [facility] [address] [place] [address] Pascale Arana NP [address] [place] [address] documented as of this encounter Goals Goal [...] documented as of this encounter Care Teams Concrete Products Machine Operator Relationship Specialty Start Date End Date Molina De Anda MD [address] [place] [address] PCP - General Family Medicine 02/21/24 Valerie Groves NP [address] [place] [address] Nurse Practitioner Family Medicine 02/21/24 Karime Dias [facility] [address] [address] [place] [address] Nurse Practitioner Behavioral Health 01/22/25 documented as of this encounter
--- OUTSIDE RECORDS SUMMARY | 2025-02-26 14:29 | XMS_ITS | Encounter Summary ---
Author Organization [facility] Address [address] [place] [address] Care Team Providers Care Field Associate Name Role Phone Molina De Anda MD Primary Care Provider [phone] Valerie Groves FREIGHT CAR CLEAN[employer] Unavailable [phone] [facility] + [phone] Encounter Details Date Type Department Care Team (Late st Contact Info) Description 01/06/2025 [facility] [address] [place] [address] Pascale Arana NP [address] [place] [address] Social History Tobacco Use Types Packs/Day Years [...] Recorded Patient Health Questionnaire-2 Score 0 04/10/2024 [facility] of Occupat ional Health - Occupational [...] [facility] [address] [place] [address] Rohan Burns LPC 04/03/2025 9:00 AM EDT Telemedicine [facility] [address] [place] [address] Karime Dias[facility] [address] [place] [address] [place] [address] 04/30/2025 4:30 PM EDT Office Visit [facility] [address] [place] [address] Pascale Arana NP [address] [place] [address] documented as of this encounter Goals Goal [...] documented as of this encounter Care Teams Field Associate Relationship Specialty Start Date End Date Molina De Anda MD [address] [place] [address] PCP - General Family Medicine 02/21/24 Valerie Groves NP [address] [place] [address] Nurse Practitioner Family Medicine 02/21/24 Karime Dias [facility] [address] [facility] [place] [address] Nurse Practitioner Behavioral Health 01/22/25 documented as of this encounter
--- OUTSIDE RECORDS SUMMARY | 2025-02-26 14:29 | XMS_ITS | Encounter Summary ---
Author Organization [facility] Address [address] [place] [address] Care Team Providers Care Pattern Repair Person Name Role Phone Molina De Anda MD Primary Care Provider [phone] Valerie Groves COMPUTER HARDWARE TECHNICIAN Unavailable [phone] Karime Dias [facility] [phone] Encounter Details Date Type Department Care Team (Late st Contact Info) Description 01/22/2025 [facility] [address] [place] [address] Karime Dias [facility]- [address] [facility] [address] [place] [address] Social History Tobacco Use Types Packs/Day [...] How often do you attend chur or catholic services? Never 08/07/2023 Do you belong [...] Recorded Patient Health Questionnaire-2 Score 5 01/22/2025 [facility] of Occupat iontn Health - Occupational Stress Questionnaire Answer Date [...] Health [address] [place] [address] [place] [address] Rohan Burns LPC 04/03/2025 9:00 AM EDT Telemedicine [facility] [address] [place] [address] Karime Dias PMHNP-BC [address] [place] [address] [place] [address] 04/30/2025 4:30 PM EDT Office Visit [facility] [address] [place] [address] Pascale Arana NP [address] [place] [address] documented as of this encounter Goals Goal [...] documented as of this encounter Care Teams Pattern Repair Person Relationship Specialty Start Date End Date Molina De Anda MD [address] [place] [address] PCP - General Family Medicine 02/21/24 Valerie Groves NP [address] [place] [address] Nurse Practitioner Family Medicine 02/21/24 [facility]ime Di[facility] [address] [address] [place] [address] Nurse Practitioner Behavioral Health 01/22/25 documented as of this encounter
--- OUTSIDE RECORDS SUMMARY | 2025-02-26 14:29 | XMS_ITS | Encounter Summary ---
Author Organization [facility] Address [address] [place] [address] Care Team Providers Care Freezer Person Name Role Phone Molina De Anda MD Primary Care Provider [phone] Valerie Groves VERTICAL BORER Unavailable [phone] Karime Dias PMHNP- Unavailable + [phone] Encounter Details Date Type Department Care Team (Late Contact Info) Description 11/28/2024 Results Follow-Up [facility] [address] [place] [address] Social History Tobacco Use Types Packs/Day Years [...] often do you attend chur ch or confucianist services? Never 08/07/2023 Do you belong to [...] Recorded Patient Health Questionnaire-2 Score 0 04/10/2024 [facility] Questionnaire Answer Date [...] Health [address] [place] [address] [place] [address] Rohan Burns LPC 04/03/2025 9:00 AM EDT Telemedicine [facility] [address] [place] [address] Karime Dias, [facility] [address] [place] [address] [place] [address] 04/30/2025 4:30 PM EDT Office Visit [facility] [address] [place] [address] Pascale Arana NP [address] [place] [address] documented as of this encounter Goals Goal [...] documented as of this encounter Care Teams Freezer Person Relationship Specialty Start Date End Date Molina De Anda MD [address] [place] [address] PCP - General Family Medicine 02/21/24 Valerie Groves NP [address] [place] [address] Nurse Practitioner Family Medicine 02/21/24 Karime Dias PMHNP- [address] [address] [place] [address] Nurse Practitioner Behavioral Health 01/22/25 documented as of this encounter
--- OUTSIDE RECORDS SUMMARY | 2025-02-26 14:29 | XMS_ITS | Encounter Summary ---
Author Organization [facility] Address [address] [place] [address] Care Team Providers Care Bilingual Customer Service Specialist Name Role Phone Molina De Anda MD Primary Care Provider [phone] Valerie Groves MATTRESS PACKER Unavailable [phone] Karime Dias HNP- Unavailable + [phone] Reason for Visit * Reason Onset Date Comments Med Refill 11/18/2024 Encounter Details Date Type Department Care Team (Late st Contact Info) Description 11/18/2024 Refill [facility] [address] [place] [address] Molina De Anda MD [address] [place] [address] Plantar fasciitis of right foot (Primary Dx) [...] How often do you attend chur or oriental orthodox services? Never 08/07/2023 Do [...] 04/10/2024 [facility] of Occupat ionct Health - [...] [place] [facility] [address] [facility] [address] [place] [address] Rohan Burns LPC 04/03/2025 9:00 AM EDT Telemedicine [facility] [address] [place] [address] Karime Dias, [facility] [address] [facility] [address] [place] [address] 04/30/2025 4:30 PM EDT Office Visit [facility] [address] [place] [address] Pascale Arana, MARY JO [address] [place] [address] documented as of this encounter Goals Goal [...] documented as of this encounter Care Teams Bilingual Customer Service Specialist Relationship Specialty Start Date End Date Molina De Anda MD [address] [place] [address] PCP - General Family Medicine 02/21/24 Valerie Groves NP [address] [place] [address] Nurse Practitioner Family Medicine 02/21/24 Karime Dias [facility] [address] [facility] [address] [place] [address] Nurse Practitioner Behavioral Health 01/22/25 documented as of this encounter
--- OUTSIDE RECORDS SUMMARY | 2025-02-26 14:29 | XMS_ITS | Encounter Summary ---
Author Organization [facility] Address [address] [place] [address] Care Team Providers Care Activities Director Name Role Phone Molina De Anda MD Primary Care Provider [phone] Valerie Groves THEATRE PROGRAM DIRECTOR Unavailable [phone] Karime Dias [facility] + [phone] Encounter Details Date Type Department Care Team (Late st Contact Info) Description 01/06/2025 Abstract [facility] [address] [place] [address] Pascale Arana NP [address] [place] [address] Social History Tobacco Use Types Packs/Day Years [...] [facility] [address] [place] [address] Rohan Burns LPC 04/03/2025 9:00 AM EDT Telemedicine [facility] [address] [place] [address] Karime Dias, [facility] [address] [place] [address] [place] [address] 04/30/2025 4:30 PM EDT Office Visit [facility] [address] [place] [address] Pascale Arana NP [address] [place] [address] documented as of this encounter Goals Goal [...] documented as of this encounter Care Teams Activities Director Relationship Specialty Start Date End Date Molina De Anda MD [address] [place] [place] [address] PCP - General Family Medicine 02/21/24 Valerie Groves NP [address] [place] [address] Nurse Practitioner Family Medicine 02/21/24 Karime Dias [facility] 112 [facility] [place] [address] Nurse Practitioner Behavioral Health 01/22/25 documented as of this encounter
--- OUTSIDE RECORDS SUMMARY | 2025-02-26 14:29 | XMS_ITS | Clinical Summary ---
Author Organization [place] [employer] tem Address [id number] [address] [place] [address] Care Team Providers Care Spaghetti Press Helper Name Role Phone No Pcp, No Pcp Primary Care Provider Unavailabl e Allergies Active Allergy Reactions Criticality Noted Date Comments Penicillins Hives 02/08/2023 Medications sod sulf-pot chloride-mag sulf 1.479-0.188- 0.225 gram tablet See instructional sheet given by office. Patient was given a Quettra voucher to use, this is not to be ran through patients insurance. 24 tablet 02/14/20 23 Active Additional Information Patient not taking.Reported on 02/24/2025 meloxicam (MOBIC) 15 mg tablet Take 1 [...] week thereafte 42.5 g 2 02/07/20 Active Additional Information Patient not taking.Reported on 02/24/2025 cariprazine (VRAYLAR) 1.5 mg capsule Take 1 capsule (1.5 mg total) by mouth in the morning. Active cyanocobalamin (vitamin B-12) 1000 MCG tablet Take 1 tablet (1,000 mcg total) by mouth in the morning. Active DULoxetine (CYMBALTA) 30 mg capsule Take 1 capsule (30 mg total) by mouth in the morning. Active DULoxetine (CYMBALTA) 60 mg capsule Take 1 capsule (60 mg total) by mouth in the morning. Active DULoxetine (CYMBALTA) 30 mg capsule Take 1 capsule (30 mg total) by mouth in the morning. 11/20/19 025 DULoxetine (CYMBALTA) 60 mg capsule Take 1 capsule (60 mg total) by mouth in the morning. 11/20/19 025 Active Problems No known active problems Encounters Date Type Department Care Team Description 02/24/2025 Abstract [facility] - Urogynecology [address] [place] [address] Tania Asif MD 02/06/2025 2:15 PM EDT Office Visit [facility] Ob[facility]Gynecolog [facility] [address] [place] [address] Leslye Muniz, Cystocele with second degree uterine prolapse (Primary Dx); History of reconstructive repair of rectocele; Urge urinary incontinence; Incomplete emptying of bladder; Atrophic vaginitis from Last 3 Months Family History Medical History Relation Name Comments Diabetes Father Heart attack Father Hypertension Father Stroke Father Breast cancer Maternal Aunt Diabetes Maternal Grandfather Breast cancer Maternal Grandmother Diabetes Mother Thyroid cancer Paternal Grandmother Colon cancer Neg Hx Ovarian cancer Neg Hx Uterine cancer Neg Hx Relation Name Status Comments Daughter x3 Alive Father Maternal Aunt Alive Maternal Grandfather Maternal Grandmother Mother Paternal Grandfather Paternal Grandmother Sister x3 Alive Son Alive Social History Tobacco Use Types Packs/Day Years Used Date Smoking Tobacco: Every Day Cigarettes 1 35 Smokeless Tobacco: Never Tobacco Cessation:Ready to Q uit: Not Asked; Counseling Given: Not Answered Alcohol Use Standard Drinks/Week Comments Yes 0 [...] [facility] - Urogyn [address] [place] [address] Tania Asif MD [address] [place] [address] Health Maintenance Due Date Last Done Comments Tobacco Counseling 1971 Depression Screening 1983 Adult BMI Follow Up Plan 1989 DTaP,Tdap and Td Vaccines (1 - Tdap) 1990 Pap Smear 1992 Zoster (Shingles) Vaccine (1 of 2) 2021 Influenza Vaccine 03/24/2025 Adult BMI Screening 02/06/2026 02/06/2025 Tobacco Screening 02/24/2026 02/24/2025 Medical Devices Not on file Insurance [employer] Care Teams Spaghetti Press Helper Relationship Specialty Start Date End Date No Pcp, [place] [address] PCP - General Family Medicine 11/21/18
--- OUTSIDE RECORDS SUMMARY | 2025-02-26 14:29 | XMS_ITS | Encounter Summary ---
Author Organization [facility] Address [address] [place] [address] Care Team Providers Care Patient Service Specialist Name Role Phone Molina De Anda MD Primary Care Provider [phone] Valerie Groves SHIFT NURSE MANAGER Unavailable [phone] Karime Dias [facility]- Unavailable + [phone] Encounter Details Date Type Department Care Team (Late st Contact Info) Description 11/14/2024 Orders Only [facility] [address] [place] [address] Pascale Arana NP [address] [place] [address] UTI (urinary tract infection), uncomplicated (Primary Dx) [...] often do you attend chur ch or sabianist services? Never 08/07/2023 Do you [...] Recorded Patient Health Questionnaire-2 Score 0 04/10/2024 [facility] of Occupat ional Health - Occupational [...] [facility] [address] [place] [address] Rohan Burns LPC 04/03/2025 9:00 AM EDT Telemedicine [facility] [address] [place] [address] Karime Dias PMHNP- [address] [facility] [address] [place] [address] 04/30/2025 4:30 PM EDT Office Visit [facility] [address] [place] [address] Pascale Arana NP [address] [place] [address] Scheduled Orders Name Type Priority Associated Diagnoses [...] as of this encounter Care Teams Patient Service Specialist Relationship Specialty Start Date End Date Molina De Anda MD [address] [place] [address] PCP - General Family Medicine 02/21/24 Valerie Groves NP [address] [place] [address] Nurse Practitioner Family Medicine 02/21/24 Karime Dias [facility] [address] [place] [address] [place] [address] Nurse Practitioner Behavioral Health 01/22/25 documented as of this encounter
--- OUTSIDE RECORDS SUMMARY | 2025-02-26 14:29 | XMS_ITS | Encounter Summary ---
Author Organization [facility] Address [address] [place] [address] Care Team Providers Care Cable Television Technician Name Role Phone Molina De Anda MD Primary Care Provider [phone] Valerie Groves TERRAZZO JOURNEYMAN Unavailable [phone] Karime Dias [facility] + [phone] Encounter Details Date Type Department Care Team (Late st Contact Info) Description 01/20/2025 Abstract [facility] [address] [place] [address] Pascale Arana NP [address] [place] [address] Social History Tobacco Use Types Packs/Day Years [...] How often do you attend chur or baptist services? Never 08/07/2023 Do you belong to [...] 5 01/22/2025 [facility] of Occupat ional Health - [...] Health [address] [place] [address] Rohan Burns LPC 04/03/2025 9:00 AM EDT Telemedicine [facility] [address] [place] [address] Karime Dias PMHNP-BC [address] [place] [address] 04/30/2025 4:30 PM EDT Office Visit [facility] [address] [place] [address] Pascale Arana NP [address] [place] [address] documented as of this encounter Goals Goal [...] documented as of this encounter Care Teams Cable Television Technician Relationship Specialty Start Date End Date Molina De Anda MD [address] [place] [address] PCP - General Family Medicine 02/21/24 Valerie Groves NP [address] [place] [address] Nurse Practitioner Family Medicine 02/21/24 Karime Dias [facility] [address] [facility] [address] [place] [address] Nurse Practitioner Behavioral Health 01/22/25 documented as of this encounter
--- OUTSIDE RECORDS SUMMARY | 2025-02-26 14:29 | XMS_ITS | Encounter Summary ---
Author Organization [facility] Address [address] [place] [address] Care Team Providers Care Industrial Equipment Mechanic Name Role Phone Shaikh NITHIN Main Primary Care Provider [phone] Shaikh NITHIN Main Primary Care Provider [phone] Molina De Anda MD Primary Care Provider [phone] Valerie Groves COMMUNITY LIVING INSTRUCTOR Unavailable [phone] Karime Dias [facility]- Unavailable Encounter Details Date Type Department Care Team (Late st Contact Info) Description 11/20/2023 Orders Only [facility] [address] [place] [address] Shaikh Main MD [address] [place] [address] Social History Tobacco Use Types Packs/Day Years [...] Recorded Patient Health Questionnaire-2 Score 0 11/13/2023 [facility] Occupat ional Health - [...] Health [address] [place] [address] [place] [address] Rohan Burns LPC 04/03/2025 9:00 AM EDT Telemedicine [facility] [address] [place] [address] Karime Dias, PMHNP- [address] [place] [address] [place] [address] 04/30/2025 4:30 PM EDT Office Visit [facility] [address] [place] [address] Pascale Arana NP [address] [place] [address] documented as of this encounter Goals Goal [...] documented as of this encounter Care Teams Industrial Equipment Mechanic Relationship Specialty Start Date End Date Shaikh Main MD PCP - General Internal Medicine 04/20/23 01/07/24 Shaikh Main MD [address] [place] [address] PCP - General Internal Medicine 01/08/24 02/20/24 Molina De Anda MD [address] [place] [address] PCP - General Family Medicine 02/21/24 Valerie Groves NP [address] [place] [address] Nurse Practitioner Family Medicine 02/21/24 Karime Dias PMHNP- [address] [facility] [place] [address] Nurse Practitioner Behavioral Health 01/22/25 documented as of this encounter
--- OUTSIDE RECORDS SUMMARY | 2025-02-26 14:29 | XMS_ITS | Encounter Summary ---
Author Organization [facility] Address [address] [place] [address] Care Team Providers Care Temp Recruiter Name Role Phone Molina De Anda MD Primary Care Provider [phone] DEPARTMENT DISPATCHER Unavailable [phone] Karime Dias [facility]- Unavailable + [phone] Reason for Visit * Reason Comments Med Refill Encounter Details Date Type Department Care Team (Late st Contact Info) Description 02/20/2025 Refill [facility] [address] [place] [address] Pascale Arana NP [address] [place] [address] Psychophysiological insomnia Social History Tobacco Use Types [...] Recorded Patient Health Questionnaire-2 Score 5 01/22/2025 [facility] Occupat ional Health - [...] [facility] [address] [facility] [address] [place] [address] Rohan Burns LPC 04/03/2025 9:00 AM EDT Telemedicine [facility] [address] [place] [address] Karime Dias PMHNP- [address] [facility] [address] [place] [address] 04/30/2025 4:30 PM EDT Office Visit [facility] [address] [place] [address] Pascale Arana, MARY JO [address] [place] [address] documented as of this encounter Goals Goal [...] documented as of this encounter Care Teams Temp Recruiter Relationship Specialty Start Date End Date Molina De Anda MD [address] [place] [address] PCP - General Family Medicine 02/21/24 Valerie Groves NP [address] [place] [address] Nurse Practitioner Family Medicine 02/21/24 [facility] [address] [facility] [place] [address] Nurse Practitioner Behavioral Health 01/22/25 documented as of this encounter
--- OUTSIDE RECORDS SUMMARY | 2025-02-26 14:29 | XMS_ITS | Encounter Summary ---
Author Organization [facility] Address [address] [place] [address] Care Team Providers Care Provider Relations Rep Name Role Phone Molina De Anda MD Primary Care Provider [phone] Valerie Groves DRAW BENCH OPERATOR HELPER Unavailable [phone] Karime Dias PMHNP- Unavailable [phone] Encounter Details Date Type Department Care Team (Late st Contact Info) Description 02/29/2024 Orders Only [facility] [address] [place] [address] Valerie Groves NP Social History Tobacco Use [...] Recorded Patient Health Questionnaire-2 Score 0 02/28/2024 [facility] Answer Date [...] [address] [place] [address] [place] [address] Rohan Burns LPC 04/03/2025 9:00 AM EDT Telemedicine [facility] [address] [place] [address] Karime Dias, PMHNP- [address] [place] [address] [place] [address] 04/30/2025 4:30 PM EDT Office Visit [facility] [address] [place] [address] Pascale Arana, MARY JO [address] [place] [address] documented as of this encounter Goals Goal [...] Laterality Modality Radiographic Maeve ging Valerie Groves DRAW BENCH OPERATOR HELPER IMG XR PROCEDURES Final Result documented in this encounter Visit Diagnoses Not on filedocumented in this encounter Additional Health Concerns Active Problems Noted Date Diagnosed Date Patient on antidepressant monitoring plan 2023 Assessment Noted Time PHQ-9 Depression Total Score: 23 024 4:27 PM EST documented as of this encounter Care Teams Provider Relations Rep Relationship Specialty Start Date End Date Molina De Anda MD [address] [place] [address] PCP - General Family Medicine 02/21/24 Valerie Groves NP [address] [place] [address] Nurse Practitioner Family Medicine 02/21/24 [facility] [address] [place] [address] [place] [address] Nurse Practitioner Behavioral Health 01/22/25 documented as of this encounter
--- OUTSIDE RECORDS SUMMARY | 2025-02-26 14:29 | XMS_ITS | Encounter Summary ---
Author Organization [facility] Address [address] [place] [address] Care Team Providers Care Slitter And Rewinder Machine Operator Name Role Phone Shaikh NITHIN Main Primary Care Provider [phone] Shaikh NITHIN Main Primary Care Provider [phone] Molina De Anda MD Primary Care Provider [phone] Valerie Groves RF TEST TECHNICIAN Unavailable [phone] Karime Dias [facility]- Unavailable Encounter Details Date Type Department Care Team (Late st Contact Info) Description 08/02/2023 Orders Only [facility] [address] [place] [address] Shaikh Main MD [address] [place] [address] Social History Tobacco Use Types Packs/Day Years [...] week 07/03/2023 How often do you attend [facility] or tenriism services? Patient declined 07/03/2023 Do you belong [...] Recorded Patient Health Questionnaire-2 Score 6 08/03/2023 [facility] Occupat ional Health - Occupational Stress [...] slept in a longterm (including now)? No 07/03/2023 Comments Unknown Sex [...] Work [facility] [address] [facility] [address] [place] [address] Rohan Burns LPC 04/03/2025 9:00 AM EDT Telemedicine [facility] [address] [facility] [address] [place] [address] [facility] [address] [facility] [address] [place] [address] 04/30/2025 4:30 PM EDT Office Visit [facility] [address] [place] [address] Pascale Arana NP [address] [place] [address] documented as of this encounter Procedures Procedure Name Priority Date/Time Associated Diagnosis Comments MISCELLANEOUS LAB TEST Routine 07/28/2023 1:49 PM EST documented in this encounter Results * - Miscellaneous Test (07/28/2023 1:49 PM EST) us Shaikh Etelvina [facility] BLOOD ORDERABLES Final Resu lt documented in this encounter Visit Diagnoses Not on filedocumented in this encounter Care Teams Slitter And Rewinder Machine Operator Relationship Specialty Start Date End Date Shaikh Main MD PCP - General Internal Medicine 04/20/23 01/07/24 Shaikh Main MD [address] [place] [address] PCP - General Internal Medicine 01/08/24 02/20/24 Molina De Anda MD [address] [place] [address] PCP - General Family Medicine 02/21/24 Valerie Groves NP [address] [place] [address] Nurse Practitioner Family Medicine 02/21/24 Karime Dias PMHNP- [address] [place] [address] Nurse Practitioner Behavioral Health 01/22/25 documented as of this encounter
--- OUTSIDE RECORDS SUMMARY | 2025-02-26 14:29 | XMS_ITS | Patient Health Record ---
Author Organization [facility] [place] Address [address] [place] [address] Care Team Providers Care Manager Product Name Role Phone None, Unknown or Primary Care Provider Unavailab Tawana Lee [phone] Allergies Allergen (clinical drug ingredient) Drug/Non Drug Allergy documented on EMR Reaction Allergy Type Onset Date Status Penicillin rash Drug Allergy Active Results Component Value Reference Range Notes XR foot LT min 3V (Not yet r eviewed by provider) Interpretation: Performing Lab: Notes/Report: Source Facility: [place] [address] XRay Report Signed Patient: KALYN RUTHERFORD MR#: [id number] : 1970 Acct:[id number] Age/Sex: 54 / F ADM Date: 09/04/24 Loc: EC Attending Dr: Tawana Hoff D.P.M. Ordering Physician: Tawana Hoff D.P.M. Date of Service: 09/04/24 Procedure(s): XR foot LT min 3V Accession Number(s): [id number] cc: NASH LAMAR Peter D.P.M. [facility] [place] [address] Patient Name: KALYN RUTHERFORD MRN: [id number] date: 1970 Sex: F Assigned Patient Location: EC Current Patient Location: Accession/Order Number: [id number] Exam Date: 09/04/2024 15:53 Report Date: 09/05/2024 [...] Signed By: 09/05/24 1019 DD/ 1016 TD/TT: Outside Solar Sales Consultant: [place] [address] XRay Report Signed Patient: MARTY RUTHERFORD MR#: [id number] : 1970 Acct:[id number] Age/Sex: 54 / F ADM Date: 09/04/24 Loc: EC Attending Dr: Tawana Hoff D.P.M. Ordering Physician: Tawana Hoff D.P.M. Date of Service: 09/04/24 Procedure(s): XR foot LT min 3V Accession Number(s): [id number] cc: PAUL LAMAR; Tawana Hoff D.P.M. [facility] [place] [id number] Patient Name: KALYN RUTHERFORD MRN: [id number] date: 1970 Sex: F Assigned Patient Location: Current Patient Location: Accession/Order Numb er: [id number] Exam Date: 09/04/2024 15:53 Report Date: 09/05/2024 10:16 At the request of: TAWANA HOFF Procedure: XR foot LT min 3V PROCEDURE: XR foot LT min 3V HISTORY: LEFT FOOT PAIN COMPARISON: XR foot left 05/31/2022 . 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 Ordering Physician: Tawana Hoff D.P.M. Date of Service: 09/09/24 Procedure(s): CT foot LT wo con Accession Number(s): [id number] cc: ANGEL LUIS LAMAR [place] [address] Patient Name: KALYN RUTHERFORD MRN: [id number] date: 1970 Sex: F Assigned Patient Location: CT Current Patient Location: CT Accession/Order Number: [id number] Exam Date: 09/09/2024 15:56 Report Date: 09/09/2024 [...] M.D. Signed By: 09/09/241741 DD/ 38 TD/TT: Outside Solar Sales Consultant: [place] [address] CT Scan Report Signed Patient: MARTY RUTHERFORD MR#: [id number] : 1970 Acct:[id number] Age/Sex: 54 / F ADM Date: 09/09/24 Loc: CT Attending Dr: Tawana Hoff D.P.M. Ordering Physician: Tawana Hoff D.P.M. Date of Service: 09/09/24 Procedure(s): CT foot LT wo con Accession Number(s): [id number] cc: ANGEL LUIS LAMAR [place] [address] Patient Name: KALYN RUTHERFORD MRN: [id number] date: 1970 Sex: F Assigned Patient Location: CT Current Patient Location: CT Accession/Order Numb er: [id number] Exam Date: 09/09/2024 15:56 Report Date: 09/09/2024 [...] M.D. Signed By: 09/09/241741 DD/ 38 TD/TT: Outside Solar Sales Consultant: Reason For Referral No Information Medications Medication [...] Problem Status W/U Status Risk Notes Problem [id number] Primary osteoarthritis , left ankle and foot (M19.072) Active confirmed Problem Gastroesophageal reflux disease (719893587) GERD (gastroesophag eal reflux disease) (K21.9) Active confirmed Problem Pain in left foot (878448098202412) Left foot pain (M79.672) Active confirmed Problem Anxiety depression (982787384) Anxiety with depression (F41.8) Active confirmed Vital Signs Heart Rate 85 /min 09/18/2024 Respiratory Rate 16 /min 09/18/2024 Oximetry 97 % 09/18/2024 Encounters Encounter Location Date Provider Diagnosis [facility] [address] [place] [address] [place] [address] 09/04/2024 Tawana Hoff [facility] [address] [place] [address] [place] [address] 09/04/2024 Tawana Hoff Pain due to internal orthopedic prosthetic devices, implants and grafts, initial encounter T84.84XA ; Primary osteoarthritis, left ankle and foot M19.072 and Left foot pain M79.672 [facility] [address] [place] [address] [place] [address] 09/18/2024 Tawana Hoff Pseudarthrosis after fusion or [...] Start Date Coverage End Date [facility] [address] [place] [address] [id number] Kalyn Rutherford Self - patient is the insured Medical (General) History Medical History History ICD Code GERD (gastroesophageal reflux disease) K 21.9 Anxiety F41.9 Arthritis M19.90 Nicotine dependence F17.200 Bipolar depression F31.9 Overactive bladder N32.81 Peripheral arterial disease I73.9 Surgical History Surgery Date(Month/Year) posterior colporrhaphy repair, enterocel e repair 02/15/2021 gastric bypass 08/2019 tubal ligation cholecystectomy
--- OUTSIDE RECORDS SUMMARY | 2025-02-26 14:29 | XMS_ITS | Encounter Summary ---
Author Organization [facility] Address [address] [place] [address] Care Team Providers Care Nurse Coordinator Name Role Phone Molina De Anda MD Primary Care Provider [phone] Valerie Groves SECURITY AND PRIVACY CONSULTANT Unavailable [phone] Karime Dias PMHNP- Unavailable + [phone] Encounter Details Date Type Department Care Team [...] Recorded Patient Health Questionnaire-2 Score 5 01/22/2025 [facility] - Occupational Stress Questionnaire Answer [...] [address] [place] [address] [place] [address] Rohan Burns LPC 04/03/2025 9:00 AM EDT Telemedicine [facility] [address] [place] [address] [facility] [address] [place] [address] [place] [address] 04/30/2025 4:30 PM EDT Office Visit [facility] [address] [place] [address] Pascale Arana NP [address] [place] [address] documented as of this encounter Goals Goal [...] EDT Narrative 02/19/2025 3:06 [place] [address] XRay Report Signed Patient: TALIA RUTHERFORD MR#: [id number] : 1970 Acct:[id number] Age/Sex: 54 / F ADM Date: 02/19/25 Loc: RAD Attending Dr: Michael LAZAR Ordering Physician: Michael Escobedo Date of Service: 02/19/25 Procedure(s): XR foot LT min 3V Accession Number(s): [id number] cc: Pascale Arana SECURITY AND PRIVACY CONSULTANT; Michael Escobedo [facility] [place] [id number] Patient Name: TALIA RUTHERFORD MRN: [id number] date: 1970 Sex: F Assigned Patient Location: [facility] Current Patient Location: RAD Accession/Order Number: [id number] Exam Date: 02/19/2025 10:39 Report Date: 02/19/2025 [...] Jr., D.O. 02/19/2025 3:03 PM Dictation Location: [place] [address] Electronically authenticated by: [id number] Y Date: 02/19/2025 15:03 Dictated By: Merlin Massey M.D. Signed By: 02/19/25 1506 DD/ 1503 TD/TT: Share Holder: Procedure Note Radiology, Radiologist, MD - 02/19/2025 [place] [address] XRay Report Signed Patient: TALIA RUTHERFORD DMR#: [id number] : 1970Acct:[id number] Age/Sex: 54 / FADM Date: 02/19/25 Loc: [facility] Attending Dr: Michael LAZAR Ordering Physician: Michael Escobedo Date of Service: 02/19/25 Procedure(s): XR foot LT min 3V Accession Number(s): [id number] cc: Pascale Arana SECURITY AND PRIVACY CONSULTANT; Michael Escobedo [facility] [place] [id number] Patient Name: TALIA RUTHERFORD MRN: [id number] date: 1970 Sex: F Assigned Patient Location: [facility] Current Patient Location: [facility] Accession/Order Number: [id number] Exam Date: 02/19/2025 10:39 Report Date: 02/19/2025 [...] Jr., D.O. 02/19/2025 3:03 PM Dictation Location: [place] [address] Electronically authenticated by: [id number] Y Date: 5:03 Dictated By: Merlin Massey M.D. Signed By:02/19/25 1506 DD/ 1503 TD/TT: Share Holder: us Generic External Data Provider [facility] Final Result documented in this encounter Visit Diagnoses Not on filedocumented in this encounter Additional Health Concerns Active Problems Noted Date Diagnosed Date Patient on antidepressant monitoring plan 2023 Assessment Noted Time PHQ-9 Depression Total Score: 21 025 9:29 AM EDT documented as of this encounter Care Teams Nurse Coordinator Relationship Specialty Start Date End Date Molina De Anda MD [address] [place] [address] PCP - General Family Medicine 02/21/24 Valerie Groves NP [address] [place] [address] Nurse Practitioner Family Medicine 02/21/24 [facility] [address] [place] [address] [place] [address] Nurse Practitioner Behavioral Health 01/22/25 documented as of this encounter
--- OUTSIDE RECORDS SUMMARY | 2025-02-26 14:29 | XMS_ITS | Encounter Summary ---
Author Organization [facility] Address [address] [place] [address] Care Team Providers Care 8Th Grade Mathematics Teacher Name Role Phone Shaikh NITHIN Main Primary Care Provider [phone] Shaikh NITHIN Main Primary Care Provider [phone] Molina De Anda MD Primary Care Provider [phone] Valerie Groves PIECE WORKER Unavailable [phone] Karime Dias [facility]- Unavailable Encounter Details Date Type Department Care Team (Late st Contact Info) Description 08/03/2023 Orders Only [facility] [address] [place] [address] Shaikh Main MD [address] [place] [address] Social History Tobacco Use Types Packs/Day Years [...] any clubs o r organizations such as voodoo groups, unions, fraternal or athletic groups, or [...] Patient Health Questionnaire-2 Score 6 08/03/2023 [facility] [place] of Occupat ional Health - Occupational Stress [...] [facility] [address] [facility] [address] [place] [address] Rohan Burns LPC 04/03/2025 9:00 AM EDT Telemedicine [facility] [address] [place] [place] [address] Karime Dias [facility]- [address] [facility] [address] [place] [address] 04/30/2025 4:30 PM EDT Office Visit [facility] [address] [place] [address] Pascale Araan NP [address] [place] [address] documented as of this encounter Goals Goal [...] documented as of this encounter Care Teams 8Th Grade Mathematics Teacher Relationship Specialty Start Date End Date Shaikh Main MD PCP - General Internal Medicine 04/20/23 01/07/24 Shaikh Main MD [address] [place] [address] PCP - General Internal Medicine 01/08/24 02/20/24 Molina De Anda MD [address] [place] [address] PCP - General Family Medicine 02/21/24 Valerie Groves NP [address] [place] [address] Nurse Practitioner Family Medicine 02/21/24 Karime Dias, [facility] [address] [address] Nurse Practitioner Behavioral Health 01/22/25 documented as of this encounter
--- OUTSIDE RECORDS SUMMARY | 2025-02-26 14:29 | XMS_ITS | Encounter Summary ---
Author Organization [facility] Address [address] [place] [address] Care Team Providers Care Recordings Librarian Name Role Phone Molina De Anda MD Primary Care Provider [phone] Valerie Groves KILN TENDER Unavailable [phone] [facility] + [phone] Encounter Details Date Type Department Care Team (Late st Contact Info) Description 11/18/2024 Orders Only [facility] [address] [place] [address] Pascale Arana NP [address] [place] [address] Social History Tobacco Use Types Packs/Day Years [...] any clubs o r organizations such as hindu groups, unions, fraternal or athletic groups, or [...] Recorded Patient Health Questionnaire-2 Score 0 04/10/2024 [facility] of Occupat ional Health - Occupational [...] [facility] [address] [place] [address] Rohan Burns LPC 04/03/2025 9:00 AM EDT Telemedicine [facility] [address] [place] [address] Karime Dias, PMHNP- [address] [place] [address] [place] [address] 04/30/2025 4:30 PM EDT Office Visit [facility] [address] [place] [address] Pascale Arana NP [address] [place] [address] documented as of this encounter Goals Goal [...] (11/18/2024 2:41 PM EDT) us Pascale Arana KILN TENDER LAB CHG PERFORMABLES Final Resu lt documented in this encounter Visit Diagnoses Not on filedocumented in this encounter Additional Health Concerns Active Problems Noted Date Diagnosed Date Patient on antidepressant monitoring plan 2023 Assessment Noted Time PHQ-9 Depression Total Score: 23 024 4:27 PM EST documented as of this encounter Care Teams Recordings Librarian Relationship Specialty Start Date End Date Molina De Anda MD [address] [place] [address] PCP - General Family Medicine 02/21/24 Valerie Groves NP [address] [place] [address] Nurse Practitioner Family Medicine 02/21/24 [facility] [address] [place] [address] [address] [place] [address] Nurse Practitioner Behavioral Health 01/22/25 documented as of this encounter
--- OUTSIDE RECORDS SUMMARY | 2025-02-26 14:29 | XMS_ITS | Encounter Summary ---
Author Organization [employer] [facility]-[id number] [address] [place] [address] Care Team Providers Care Arcade Games Mechanic Name Role Phone No Pcp, No Pcp Primary Care Provider Unavailpedro e Encounter Details Date Type Department Care Team (Late st Contact Info) Description 02/13/2023 Telephone [facility] General [facility] [address] [place] [phone] Segun Keene DO [address] [place] [address] Social History Tobacco Use Types [...] office visit;just set up for colonsocopy at [facility] for anemis. I don't need to see he agian. Saw her today!!! * Telephone Encounter - Alberta Millan - 02/13/2023 11:36 AM EDT Talia called the office to try to reschedule her appointment, I informed her that Dr. Jassi fraga her set up for a colonoscopy at [facility]. Told Talia that our surgery schedulerwill call her back to schedule that with her. * Telephone Encounter - SUGEY Loyd - 02/13/2023 11:36 AM EDT I called Talia and scheduled colonoscopy at [facility] for 03/08/23. The patient is coming in tomorrow 02/14/23 to sign papers and go over bowel prep. I will send Dr. Keene a message to put in orders for this procedure and email everything over to Anh at the [facility]. documented in this encounter Plan of Treatment Upcoming Encounters Date Type Department Care Team (Late st Contact Info) Description 04/02/2025 3:00 PM EDT Office Visit [facility] [address] [place] [address] Tania Asif MD [address] [place] [address] documented as of this encounter Visit Diagnoses Not on filedocumented in this encounter Care Teams [employer] Mechanic Relationship Specialty Start Date End Date No Pcp[place] [address] PCP - General Family Medicine 11/21/18 documented as of this encounter
--- OUTSIDE RECORDS SUMMARY | 2025-02-26 14:29 | XMS_ITS | Clinical Summary ---
Author Organization [facility] Address [address] [place] [address] Care Team Providers Care Rn Medication Name Role Phone Shaikh NITHIN Main Primary Care Provider [phone] Allergies Active Allergy Reactions Criticality Noted Date [...] complete this topic Insurance [employer] Care Teams Rn Medication Relationship Specialty Start Date End Date Shaikh Main MD PCP - General Family Medicine 04/07/23
--- OUTSIDE RECORDS SUMMARY | 2025-02-26 14:29 | XMS_ITS | Encounter Summary ---
Author Organization [facility] Address [address] [place] [address] Care Team Providers Care Industrial Services Worker Name Role Phone Molina De Anda MD Primary Care Provider [phone] Valerie Groves NP Unavailable [phone] Karime Dias [facility]- Unavailable + [phone] Reason for Visit * Reason Onset Date Comments Med Refill Letter for School/Work 02/01/2025 Encounter Details Date Type Department Care Team (Late st Contact Info) Description 02/01/2025 Refill [facility] [address] [place] [address] Pascale Arana NP [address] [place] [phone] Bipolar disorder with severe depression (HCC) Social [...] How often do you attend chur or muslim services? Never 08/07/2023 Do you [...] Recorded Patient Health Questionnaire-2 Score 5 01/22/2025 [facility] [place] [facility] Occup[facility] ional [facility] - Occupational Stress [...] [address] [place] [phone] Rohan Burns LPC 04/03/2025 9:00 AM EDT Telemedicine [facility] [address] [place] [address] Karime Dias, [facility] [address] [place] [phone] 04/30/2025 4:30 PM EDT Office Visit [facility] [address] [place] [phone] Pascale Arana NP [address] [place] [phone] documented as of this encounter Goals Goal [...] as of this encounter Care Teams Industrial Services Worker Relationship Specialty Start Date End Date Molina De Anda MD [address] [place] [phone] PCP - General Family Medicine 02/21/24 Valerie Groves NP [address] [place] [phone] Nurse Practitioner Family Medicine 02/21/24 Karime Dias, [facility] [address] [facility] [address] [place] [phone] Nurse Practitioner Behavioral Health 01/22/25 documented as of this encounter
--- NOTE | 2025-02-26 14:30 | CA_ITS ---
The [facility] Test Date: 2025-02-26 Pat Name: KALYN RUTHERFORD Department: Room: - Gender: Female Customer Trainer: Cari Nichole : 1970 Requested By: Kajal Escobedo Order Number: [id number] Garth MD: SCOTT PARKINSON M.D. Interpretive Statements Summary of the findings: Right leg: TEREZA= 1.28; TBI= 0.93. Doppler waveforms demonstrate multiphasic flow at the posterior tibial and biphasic flow at the dorsalis pedis arteries. Left leg: TEREZA= 1.30; TBI= 0.83. Doppler waveforms demonstrate multiphasic flow at the posterior tibial and biphasic flow at the dorsalis pedis arteries. Segmental pressures: Segmental pressures are normal bilaterally. Pulse volume recordings: PVRs at the high thigh, below knee, and ankle levels show normal waveforms. Conclusion: Right and left ankle-brachial indices are suggestive of normal overall arterial flow at rest. Toe-brachial indices are not suggestive of PAD. Segmental pressures show no segmental disease. Pulse volume recordings indicate good overall resting arterial flow. Waveform analysis suggests normal bilateral arterial flow. Overall normal resting physiologic examination. Electronically Signed On 02-27-2025 9:07:26 EDT by SCOTT PARKINSON M.D.
--- OUTSIDE RECORDS SUMMARY | 2025-02-26 14:30 | XMS_ITS | Clinical Summary ---
Author Organization [facility] Address [address] [place] [address] Care Team Providers Care Drop Pit Worker Name Role Phone Molina De Anda MD Primary Care Provider [phone] Valerie Groves CAR STOWER Unavailable [phone] Karime Dias PMHNP- Unavailable [phone] Allergies Active Allergy Reactions Criticality Noted Date [...] mg OralDaily in the morning, Reported on 02/24/2025 DULoxetine (Cymbalta) [address] capsuleIndicat ions:Fibromyal elba Take 1 capsule (30 mg) by mouth Daily 90 capsule 1 11/20/19 25 Active Additional Information Patient taking differently:30 mg OralNightly, Reported on 02/24/2025 albuterol HFA 90 mcg/act inhalerIndicat ions:URTI (acute upper respiratory infection),Non -recurrent acute suppurative otitis media of both ears without spontaneous rupture of tympanic membranes Inhale 2 puffs every 6 (six) hours if needed for wheezing 8 g 1 02/07/20 25 025 Active zolpidem (Ambien) 10 MG tabletIndicati ons:Psychophys iological insomnia Take 1 tablet (10 mg) by mouth as needed at bedtime for sleep 30 tablet 2 02/21/20 25 025 Active cyanocobalamin (Vitamin B-12) 1000 MCG tablet Take 1,000 mcg by mouth in the morning. Active Cariprazine HCl (Vraylar) 3 MG capsuleIndicat ions:Severe episode of recurrent major depressive disorder, without psychotic features (HCC) Take 3 mg by mouth Daily 30 capsule 02/25/20 25 025 Active cyclobenzaprin e (Flexeril) 10 MG tablet Take 10 mg by mouth 3 (three) times a day as needed Active estradiol (Estrace) 0.1 MG/GM vaginal cream Insert 1.5 g into the vagina 2 (two) times a week 02/07/20 25 Active tolterodine LA (Detrol LA) 4 MG 24 hr capsule Take 4 mg by mouth Daily 12/22/19 25 Active lansoprazole (Prevacid) [address] capsuleIndicat ions:Gastroeso phageal reflux disease, unspecified whether esophagitis present Take 1 capsule (30 mg) by mouth in the morning. Take before meals. 90 capsule 1 02/27/20 25 025 Active tolterodine LA (Detrol LA) 4 MG 24 hr capsuleIndicat ions:Overactiv e bladder due to prolapse of female genital organ Take 1 capsule (4 mg) by mouth Daily 90 capsule 1 11/19/19 25 025 zolpidem (Ambien) 10 MG tabletIndicati ons:Psychophys iological insomnia Take 1 tablet (10 mg) by mouth as needed at bedtime for sleep 30 tablet 2 11/19/19 025 Discontinued pantoprazole (ProtoNix) 40 MG EC tabletIndicati ons:Gastroesop hageal reflux disease, unspecified whether esophagitis present Take 1 tablet (40 mg) by mouth Daily Do not crush, chew, or split. 90 tablet 11/21/19 25 025 Discontinued(I neffective) albuterol HFA 90 mcg/act inhalerIndicat ions:URTI (acute upper respiratory infection),Non -recurrent acute suppurative otitis media of both ears without spontaneous rupture of tympanic membranes Inhale 2 puffs every 6 (six) hours if needed for wheezing 18 g 01/15/20 25 025 Discontinued Cariprazine HCl (Vraylar) 1.5 MG capsuleIndicat ions:Severe episode of recurrent major depressive disorder, without psychotic features (HCC) Take 1.5 mg by mouth Daily 30 capsule 01/23/20 25 025 Discontinued lamoTRIgine (LaMICtal) 25 MG tabletIndicati ons:Bipolar disorder with severe depression (HCC) Take 1 tablet (25 mg) by mouth Daily for 7 days 1 pill at bedtime for 7 weeks then stop medication 01/23/20 025 Discontinued(T herapy completed) lansoprazole (Prevacid) [address] capsule Take 30 mg by mouth in the morning. Take before meals. 025 Discontinued(R eorder) Active Problems Problem Noted Date Diagnosed Date Spinal stenosis, lumbosacral region 02/05/2025 Spinal stenosis, cervical region 02/05/2025 Sleep apnea 01/22/2025 Severe episode of recurrent major depressive disorder, without psychotic features 01/22/2025 Assessment & Plan (02/25/2025 12:45 PM EDT): Was referred to psych, they are currently managing meds Is off on FMLA for this PTSD (post-traumatic stress disorder) 01/22/2025 Assessment & Plan (02/25/2025 7:23 AM EDT): Dx as per psych Abnormal Papanicolaou smear of cervix with positive [...] comorbidity in adult 08/12/2024 Assessment & Plan (02/25/2025 7:24 AM EDT): Discussed with patient their BMI [...] had weight loss surgery in the past Assessment & Plan (01/06/2025 7:38 AM EDT): [...] GI Nicotine dependence 11/13/2023 Assessment & Plan (02/25/2025 7:23 AM EDT): The patient has been advised of the risks of continued smoking: stroke, UT, all forms of cancer, lung disease, and . Options for quitting smoking include: cold turkey, hypnosis, acupuncture, nicotine replacement meds (gum, lozenges, and patches), Buproprion, and Varenicline. At this time pt is encouraged to evaluate their goals for wanting to quit smoking, and reach out to provider when ready to start this process Assessment & Plan (01/06/2025 7:38 AM EDT): The patient has been advised of the risks of continued smoking: stroke, UT, all forms of cancer, lung disease, and [...] of the risks of continued smoking: stroke, UT, all forms of cancer, lung disease, and [...] of the risks of continued smoking: stroke, UT, all forms of cancer, lung disease, and [...] of the risks of continued smoking: stroke, UT, all forms of cancer, lung disease, and [...] Iron deficiency anemia 08/04/2023 Assessment & Plan (02/25/2025 12:45 PM EDT): Cannot tolerate oral iron supplements Has been referred for IV iron infusions, completed X1 a few weeks ago Feeling better Recheck labs Assessment & Plan (01/06/2025 6:10 PM EDT): [...] med: lansoprazole Insomnia 07/04/2023 Assessment & Plan (02/25/2025 12:44 PM EDT): Current med: ambien Worse with depression/anxiety Cont working with psych Assessment & Plan (01/06/2025 6:10 PM EDT): [...] abdominal wall 08/12/2024 11/20/2024 Overview (08/12/2024): [employer] [id number] EXP: 10/22/2026 LOT # [id number] Assessment & Plan (08/12/2024 5:50 PM EST): [...] Encounters Date Type Department Care Team Description 02/26/2025 Refill [facility] [address] [place] [address] Pascale Arana NP Gastroesophageal reflux disease, unspecified whether esophagitis present (Primary Dx) 02/26/2025 Telephone [facility] [address] [place] [address] Pascale Arana NP 02/25/2025 11:30 AM EDT Office Visit [facility] [address] [place] [address] Pascale Arana NP Severe episode of recurrent major depressive disorder, without psychotic features (HCC) (Primary Dx); Cigarette nicotine dependence without complication; PTSD (post-traumatic stress disorder) ; Class 1 obesity due to excess calories without serious comorbidity with body mass index (BMI) of 32.0 to 32.9 in adult; Iron deficiency anemia secondary to inadequate dietary iron intake; Primary insomnia 02/25/2025 Abstract [facility] [address] [place] [address] Pascale Arana NP 02/24/2025 3:00 PM EDT Office Visit [facility] [address] [facility] [address] [place] [address] [facility] (generalized anxiety disorder) ; Severe episode of recurrent major depressive disorder, without psychotic features (HCC); PTSD (post-traumatic stress disorder) ; Insomnia, unspecified type; Sleep apnea, unspecified type 02/24/2025 Bamboo flowsheet [facility] [address] [facility] [address] [place] [address] Karime Dias PMHNP-BC 02/24/2025 Travel 02/21/2025 Abstract [facility] [address] [place] [address] Pascale Arana NP 02/20/2025 Refill [facility] [address] [place] [address] Pascale Arana NP Psychophysiological insomnia 02/19/2025 Clinisync Result Encounter [facility] External Department Unsolicited Provider, Generic External Data 02/18/2025 Abstract [facility] [address] [place] [address] Pascale Arana NP 02/17/2025 Telephone [facility] [address] [place] [address] Pascale Arana NP Error (VOID this visit) 02/11/2025 Refill [facility] [address] [place] [address] Pascale Arana NP UTI (urinary tract infection), uncomplicated; Class 1 obesity due to excess calories without serious comorbidity in adult, unspecified BMI; BMI 32.0-32.9,adult 02/06/2025 Refill [facility] [address] [place] [address] Pascale Arana NP URTI (acute upper respiratory infection); Non-recurrent acute suppurative otitis media of both ears without spontaneous rupture of tympanic membranes 02/05/2025 Clinisync Result Encounter [facility] External Department Unsolicited Provider, Generic External Data 02/05/2025 Clinisync Result Encounter [facility] External Department Unsolicited Provider, Generic External Data 02/01/2025 Refill [facility] [address] [place] [address] Pascale Arana NP Bipolar disorder with severe depression (HCC) 01/22/2025 9:00 AM EDT Office Visit [facility] [address] [facility] [address] [place] [address] Karime Dias [facility] JESSIKA (generalized anxiety disorder) ; Severe episode of recurrent major depressive disorder, without psychotic features (HCC); PTSD (post-traumatic stress disorder) ; Insomnia, unspecified type; Sleep apnea, unspecified type; Encounter for drug screening; Bipolar disorder with severe depression (HCC) 01/22/2025 Telephone [facility] [address] [place] [address] Pascale Arana NP 01/22/2025 Orders Only [facility] [address] [facility] [address] [place] [address] Karime Dias PMHNP- 01/22/2025 Bamboo flowsheet [facility] [address] [facility] [address] [place] [address] Karime Dias PMHNP-BC 01/22/2025 Travel 01/20/2025 Abstract [facility] [address] [place] [address] Pascale Arana NP 01/15/2025 Telephone [facility] [address] [place] [address] Pascale Arana NP 01/14/2025 Clinisync Result Encounter [facility] External Department Unsolicited Pascale Arana NP 01/14/2025 Refill [facility] [address] [place] [address] Pascale Arana NP URTI (acute upper respiratory infection); Non-recurrent acute suppurative otitis media of both ears without spontaneous rupture of tympanic membranes 01/08/2025 Telephone [facility] [address] [place] [address] Pascale Arana NP 01/07/2025 Orders Only [facility] [address] [place] [address] Pascale Arana NP B12 deficiency (Primary Dx); Iron deficiency anemia secondary to inadequate dietary iron intake 01/07/2025 Telephone [facility] [address] [place] [address] Pascale Aarna NP Vaginitis/Bacterial Vaginosis 01/06/2025 4:30 PM EDT Office Visit [facility] [address] [place] [address] Pascale Arana NP Bipolar disorder with severe depression (HCC) (Primary Dx); Gastroesophageal reflux disease, unspecified whether esophagitis present; Class 1 obesity due to excess calories without serious comorbidity with body mass index (BMI) of 32.0 to 32.9 in adult; Cigarette nicotine dependence without complication; Stress; Fibromyalgia; Psychophysiological insomnia 01/06/2025 Abstract [facility] [address] [place] [address] Pascale Arana, MARY JO 01/06/2025 Telephone [facility] [address] [place] [address] Pascale Arana, MARY JO 01/06/2025 Abstract [facility] [address] [place] [address] Pascale Arana, MARY JO 01/06/2025 Bamboo flowsheet [facility] [address] [place] [address] Pascale Arana, MARY JO 12/18/2024 Refill [facility] [address] [place] [address] Pascale Arana, MARY JO URTI (acute upper respiratory infection); Non-recurrent acute suppurative otitis media of both ears without spontaneous rupture of tympanic membranes 11/28/2024 Results Follow-Up [facility] [address] [place] [address] from Last 3 Months Family History Medical [...] any clubs o r organizations such as sikhism groups, unions, fraternal or athletic groups, or [...] Recorded Patient Health Questionnaire-2 Score 5 01/22/2025 [facility] - Occupational Stress [...] F) 02/25/2025 11:31 AM EDT Respiratory Rate 18 01/06/2025 4:32 PM EDT Oxygen Saturation 97% 02/25/2025 11: 31 AM EDT Inhaled Oxygen Concentration - - Weight 78.4 kg (172 lb 12.8 oz) 025 11:31 AM EDT Height 165.1 cm (5' 5 ) 10/02/2024 4:51 PM EDT Body Mass Index 28.76 10/02/2024 4:51 PM EDT Plan of Treatment Upcoming Encounters Date Type Department Care Team (Late st Contact Info) Description 03/06/2025 3:00 PM EDT Social Work [facility] [address] [place] [address] [place] [address] Rohan BurnsEH 04/03/2025 9:00 AM EDT Telemedicine [facility] [address] [place] [address] [place] [address] Karime Dias, PMHNP-BC [address] [place] [address] [place] [address] 04/30/2025 4:30 PM EDT Office Visit [facility] [address] [place] [address] Pascale Arana, CAR STOWER [address] [place] [address] Health Maintenance Due Date Last Done Comments [...] PM EDT MR LUMBAR SPINE WO CON 5 2:18 PM EDT MR CERVICAL SPINE WO CONTRAST 02/05/2025 12:16 PM EDT TRANSFERRIN Routine 01/14/2025 12:49 PM EDT VITAMIN B12 Routine 01/14/2025 12:49 PM EDT [facility] FERRITIN Routine 01/14/2025 12:49 PM EDT METRO IRON AND TIBC Routine 01/14/2025 1 2:49 PM EDT ALL CBC WITH AUTO DIFF Routine 12:49 PM EDT MM TOMOSYNTHESIS SCREENING BI 10/23/2024 3:55 PM EDT from Last 3 Months or Most Recently Relevant to Health Maintenance Results * XR FOOT LT MIN 3V (02/19/2025 3:03 PM EDT) Anatomical Region Laterality Modality Other 02/19/2025 3:03 PM EDT Narrative 02/19/2025 3:06 PM EDT The [address] [address] XRay Report Signed Patient: TALIA RUTHERFORD MR#: [id number] : 1970 Acct:[id number] Age/Sex: 54 / F ADM Date: 02/19/25 Loc: RAD Attending Dr: Michael LAZAR Ordering Physician: Michael Escobedo Date of Service: 02/19/25 Procedure(s): XR foot LT min 3V Accession Number(s): [id number] cc: Pascale Arana NP; Michael Escobedo The [address] [address] Patient Name: TALIA RUTHERFORD MRN: [id number] date: 1970 Sex: F Assigned Patient Location: RAD Current Patient Location: RAD Accession/Order Number: [id number] Exam Date: 02/19/2025 10:39 Report Date: 02/19/2025 [...] Jr., D.O. 02/19/2025 3:03 PM Dictation Location: [place] [address] Electronically authenticated by: [id number] Y Date: 02/19/2025 15:03 Dictated By: Merlin Massey M.D. Signed By: 02/19/25 1506 DD/ 1503 TD/TT: Steward Dishwasher: Procedure Note Radiology, Radiologist, MD - 02/19/2025 The [place] [id number] XRay Report Signed Patient: TALIA RUTHERFORD DMR#: [id number] : 1970Acct:[id number] Age/Sex: 54 / FADM Date: 02/19/25 Loc: RAD Attending Dr: Michael LAZAR Ordering Physician: Michael Escobedo Date of Service: 02/19/25 Procedure(s): XR foot LT min 3V Accession Number(s): [id number] cc: Pascale Arana CAR STOWER; Michael Escobedo The [address] [address] Patient Name: TALIA RUTHERFORD MRN: [id number] date: 1970 Sex: F Assigned Patient Location: RAD Current Patient Location: RAD Accession/Order Number: [id number] Exam Date: 02/19/2025 10:39 Report Date: 02/19/2025 [...] Jr., D.O. 02/19/2025 3:03 PM Dictation Location: [place] [address] Electronically authenticated by: [id number] Y Date: 5:03 Dictated By: Merlin Massey M.D. Signed By:02/19/25 1506 DD/ 1503 TD/TT: Steward Dishwasher: Generic External Data Provider [facility] Final Result * MR LUMBAR SPINE WO CON (02/05/2025 2:18 PM EDT) Anatomical Region Laterality Modality Other 02/05/2025 2:18 PM EDT Narrative 02/05/2025 2:21 [place] [address] Magnetic Resonance Report Signed Patient: TALIA RUTHERFORD MR#: [id number] : 1970 Acct:[id number] Age/Sex: 54 / F ADM Date: 02/04/25 Loc: MRI Attending Dr: Bandar Eden M.D. Ordering Physician: Bandar Eden M.D. Date of Service: 02/04/25 Procedure(s): MR lumbar spine wo con Accession Number(s): [id number] cc: Pascale Arana CAR STOWER; Bandar Eden M.D. The [place] [id number] Patient Name: TALIA RUTHERFORD MRN: [id number] date: 1970 Sex: F Assigned Patient Location: MRI Current Patient Location: Accession/Order Number: [id number] Exam Date: 02/05/2025 12:16 Report Date: 02/05/2025 [...] Circumferential disc bulge with moderate facet arthropathy. Pzmj-ej-mmorendk right-sided and mild left-sided neural foraminal narrowing . 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 Impression dictated by: Mushtaq Antony M.D. 02/05/2025 2:18 PM Dictation Location: [place] [address] Electronically authenticated by: [id number] Y Date: 02/05/2025 14:18 Dictated By: Mushtaq Antony M.D. Signed By: 02/05/25 1421 DD/ 1418 TD/TT: Steward Dishwasher: Procedure Note Radiology, Radiologist, MD - 02/05/[address] [address] Magnetic Resonance Report Signed Patient: TALIA RUTHERFORD DMR#: [id number] : 1970Acct:[id number] Age/Sex: 54 / FADM Date: 02/04/25 Loc: MRI Attending Dr: Bandar Eden M.D. Ordering Physician: Bandar Eden M.D. Date of Service: 02/04/25 Procedure(s): MR lumbar spine wo con Accession Number(s): [id number] cc: Pascale Arana NP; Bandar Eden M.D. The [address] [address] Patient Name: TALIA RUTHERFORD MRN: [id number] date: 1970 Sex: F Assigned Patient Location: MRI Current Patient Location: Accession/Order Number: [id number] Exam Date: 02/05/2025 12:16 Report Date: 02/05/2025 [...] Circumferential disc bulge with moderate facet arthropathy. Ejvw-fl-gfbhuosu right-sided and mild left-sided neural foraminalnarrowing . 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 Impression dictated by: Mushtaq Antony M.D. 02/05/2025 2:18 PM Dictation Location: [place] [address] Electronically authenticated by: [id number] Y Date: 4:18 Dictated By: Mushtaq Antony M.D. Signed By:02/05/25 1421 DD/ 1418 TD/TT: Steward Dishwasher: us Generic External Data Provider [facility] Final Result * MR cervical spine wo contrast (02/05/2025 12:16 PM EDT) Anatomical Region Laterality Modality Spine, C-spine Magnetic Resonan ce 02/05/2025 12:1 6 PM EDT Narrative 02/05/2025 12:18 [place] [address] Magnetic Resonance Report Signed Patient: TALIA RUTHERFORD MR#: [id number] : 1970 Acct:[id number] Age/Sex: 54 / F ADM Date: 02/04/25 Loc: MRI Attending Dr: Bandar Eden M.D. Ordering Physician: Bandar Eden M.D. Date of Service: 02/04/25 Procedure(s): MR cervical spine wo con Accession Number(s): [id number] cc: Pascale Arana NP; Bandar Eden M.D. [address] [id number] Patient Name: TALIA RUTHERFORD MRN: [id number] date: 1970 Sex: F Assigned Patient Location: MRI Current Patient Location: Accession/Order Number: [id number] Exam Date: 02/05/2025 12:10 Report Date: 02/05/2025 [...] Uncovertebral spurring greatest right. Moderate right and wjnt-mj-futinnev left-sided neural foraminal narrowing. Mild canal narrowing. C5-6: Broad-based disc bulge with uncovertebral spurring, greatest left. Moderate right-sided moderate to severe left-sided neural foraminal narrowing. Mild central canal stenosis. C6-C7: Broad-based disc osteophyte complex with uncovertebral spurring. Ndjy-sg-clkczski right moderate severe left neural foraminal narrowing. Vcso-de-nqtvpptr canal narrowing. C7-T1: Minimal vertebral hypertrophy. Moderate facet arthropathy. Canal and patent. Mild foraminal narrowing. MR/MR cervical spine wo con IMPRESSION: Overall multilevel degenerative changes with up to ldlh-sn-dthbmwvm central canal narrowing. Multilevel foraminal encroachment as noted above. Impression dictated by: Mushtaq Antony M.D. 02/05/2025 12:16 PM Dictation Location: [place] [address] Electronically authenticated by: [id number] Y Date: 02/05/2025 12:16 Dictated By: Mushtaq Antony M.D. Signed By: 02/05/25 1218 DD/ 1216 TD/TT: Steward Dishwasher: Procedure Note Radiology, Radiologist, - 02/05/2025 The [place] [id number] Magnetic Resonance Report Signed Patient: TALIA RUTHERFORD DMR#: [id number] : 1970Acct:[id number] Age/Sex: 54 / FADM Date: 02/04/25 Loc: MRI Attending Dr: Bandar Eden M.D. Ordering Physician: Bandar Eden M.D. Date of Service: 02/04/25 Procedure(s): MR cervical spine wo con Accession Number(s): [id number] cc: Pascale Arana NP; Bandar Eden M.D. The [address] [address] Patient Name: TALIA RUTHERFORD MRN: [id number] date: 1970 Sex: F Assigned Patient Location: MRI Current Patient Location: Accession/Order Number: [id number] Exam Date: 02/05/2025 12:10 Report Date: 02/05/2025 [...] Uncovertebral spurring greatest right. Moderate right and jflm-wn-nbkpcyid left-sided neural foraminal narrowing. Mild canal narrowing. C5-6: Broad-based disc bulge with uncovertebral spurring, greatest left. Moderate right-sided moderate to severe left-sided neural foraminalnarrowing. Mild central canal stenosis. C6-C7: Broad-based disc osteophyte complex with uncovertebral spurring. Oiyt-bi-oudvoedm right moderate severe left neural foraminal narrowing. Ixqd-pp-sluwhard canal narrowing. C7-T1: Minimal vertebral hypertrophy. Moderate facet arthropathy. [place] patent. Mild foraminal narrowing. MR/MR cervical spine wo con IMPRESSION: Overall multilevel degenerative changes with up to dktd-wk-lbgvjasohxlyomk canal narrowing. Multilevel foraminal encroachment as noted above. Impression dictated by: Mushtaq Antony M.D. 02/05/2025 12:16 PM Dictation Location: [place] [address] Electronically authenticated by: [id number] Y Date: 2:16 Dictated By: Mushtaq Antony M.D. Signed By:02/05/25 1218 DD/ 1216 TD/TT: Steward Dishwasher: us Generic External Data Provider IMG MRI PROCEDURE S Final Result * (ABNORMAL) VITAMIN B12 (01/14/2025 12:49 PM EDT) VITAMIN B12 >2000(A) 232 - 1245 pg/mL [facility] Comment: Performed at: [facility] [id number] Rn Ccu: Hector Franco PhD, Phone: [phone] 01/14/2025 12:4 9 PM EDT 01/14/2025 12:50 PM EDT Narrative [facility] - 01/15/2025 4:07 AM EDT us Pascale Arana CAR STOWER LAB BLOOD ORDERABLES Final Resu lt [facility] * TRANSFERRIN (01/14/2025 12:49 PM EDT) TRANSFERRIN 296 192 - 364 mg/dL [facility] Comment: Performed at: [facility] [place] [id number] Rn Ccu: Hector Franco PhD, Phone: [phone] 01/14/2025 12:4 9 PM EDT 01/14/2025 12:50 PM EDT Narrative [facility] - 01/15/2025 5:07 AM EDT us Pascale Arana CAR STOWER LAB BLOOD ORDERABLES Final Resu lt [facility] TB * METRO IRON AND TIBC (01/14/2025 12:49 PM EDT) [facility] IRON 54.0 50.0 - 170.0 ug/dL [facility] TOTAL IRON BINDING CAPACITY 387.0 250.0 - 450.0 ug/dL [facility] PERCENT IRON SATURATION 14.0 % [facility] 01/14/2025 12:4 9 PM EDT 01/14/2025 12:50 PM EDT Narrative [facility] - 01/14/2025 1:50 PM EDT us Pascale Arana CAR STOWER [facility] Final Result Performing Organization Address [facility] Co de Phone Number [facility] TB * [facility] FERRITIN (01/14/2025 12:49 PM EDT) FERRITIN 10.0 8.0 - 252.0 ng/mL [facility] 01/14/2025 12:4 9 PM EDT 01/14/2025 12:50 PM EDT Narrative [facility] - 01/14/2025 2:05 PM EDT Pascale Arana CAR STOWER [facility] Final Result Performing Organization Address City/[facility]/ZIP Co de Phone Number [facility] TB * (ABNORMAL) ALL CBC WITH [...] Pascale Arana NP [facility] Final Result [facility] * MM TOMOSYNTHESIS SCREENING BI (10/23/2024 3:55 PM EDT) Anatomical Region Laterality Modality Other 10/23/2024 3:55 PM EDT Narrative 10/23/2024 3:55 [place] [address] Mammography Report Signed Patient: TALIA RUTHERFORD MR#: [id number] : 1970 Acct:[id number] Age/Sex: 54 / F ADM Date: 10/23/24 Loc: MAMMO Attending Dr: Pascale Arana NP Ordering Physician: Pascale Arana NP Results: Date of Service: 10/23/24 Follow Up: Procedure(s): MM tomosynthesis screening BI Accession Number(s): [id number] cc: Pascale Arana NP Patient Name: TALIA RUTHERFORD MR#: [id number] : 1970 Exam Date: 10/23/2024 Ordering Doctor: [...] breast cancer at age 51. LOCATION: The [facility] BREAST COMPOSITION: There are scattered areas [...] Signed By: 10/23/24 1555 DD/ 1555 TD/TT: Steward Dishwasher: Procedure Note Radiology, Radiologist, - 10/23/[address] [address] Mammography Report Signed Patient: TALIA RUTHERFORD DMR#: [id number] : 1970Acct:[id number] Age/Sex: 54 / FADM Date: 10/23/24 Loc: MAMMO Attending Dr: Pascale Arana NP Ordering Physician: Pascale Arana NPResults: Date of Service: 10/23/24Follow Up: Procedure(s): MM tomosynthesis screening BI Accession Number(s): [id number] cc: Pascale Arana NP Patient Name: TALIA RUTHERFORD MR#: [id number] : 1970 Exam Date: 10/23/2024 Ordering Doctor: [...] breast cancer at age 51. LOCATION: The [facility] BREAST COMPOSITION: There are scattered areas [...] M.D. Signed By:10/23/24 1555 DD/ 1555 TD/TT: Steward Dishwasher: Pascale Arana NP [facility] Final Result from Last 3 Months or Most Recently Relevant to Health Maintenance Additional Health Concerns Active Problems Noted Date Diagnosed Date Patient on antidepressant monitoring plan 2023 Insurance AETNA Care Teams Drop Pit Worker Relationship Specialty Start Date End Date Molina De Anda MD [address] [place] [address] PCP - General Family Medicine 02/21/24 Valerie Groves NP [address] [place] [address] Nurse Practitioner Family Medicine 02/21/24 Karime Dias PMHNP- [address] [address] [place] [address] Nurse Practitioner Behavioral Health 01/22/25
== END 2025-02-26 14:26 | disposition home or self-care (01) ==
LOC: CARD 14:25
PROVIDERS: PCP Nurse Practitioner; Visit Provider Physician Assistant
DX: R09.89 Other specified symptoms and signs involving the circulatory and respiratory systems (principal); L97.421 Non-pressure chronic ulcer of left heel and midfoot limited to breakdown of skin
CPT/HCPCS: 93923

== ENCOUNTER 2025-03-05 16:55 | Outpatient (OUT) | payer OTHER, SELFPAY ==
--- OUTSIDE RECORDS SUMMARY | 2024-09-04 11:15 | XMS_ITS ---
Author Organization [facility] in [place] Address [address] [place] [address] Care Team Providers Care Trolley Operator Name Role Phone None, Unknown or Primary Care Provider Unavailab Mathew Lee Unavailable [phone] Allergies Allergen (clinical drug ingredient) Drug/Non Drug [...] Problem Status W/U Status Risk Notes Problem [id number] Primary osteoarthrit is, left ankle and foot (M19.072) Active confirmed Vital Signs Heart Rate 84 /min 09/04/2024 Respiratory Rate 16 /min 09/04/2024 Oximetry 98 % 09/04/2024 Encounters Encounter Location Date Provider Diagnosis [facility] [place] (PODIATRY) [address] [place] [address] [place] [address] 09/04/2024 Mathew Hoff Pain due to internal [...] * Talia RUTHERFORDDOB:[birth year] (54 yo F)Acc No.[id number]:09/04/2024 Follow Up Patient: Talia FREED Provider: Miguel Hoff DPM, MS :1970 A ge:54 Y S ex:Female Date:09/04/2024 Address:[address] [place], [id number] Pcp:Unknown or None Check In:03:07 PM ESTCheck [...] M usculoskeletal: Bone/Joint Symptoms d enies. C evelyn Pain d enies.?Leg cramps d enies. N [...] 09/04/2024 Generated for Taina marina/Nhi/Josiasitting on: 0 03/05/2025 05:00 PM EDT History and Physical Notes * [...]
--- OUTSIDE RECORDS SUMMARY | 2024-09-04 11:53 | XMS_ITS ---
Author Organization The [facility] in [place] Address [address] [place] [address] Care Team Providers Care Conservation Assistant Name Role Phone None, Unknown or Primary Care Provider Unavailab Mathew Lee [phone] REASON FOR VISIT meds Medications Medication SIG (Take, Route, Fr equency, Duration) Notes Start Date End Date Status Meloxicam 15 MG 1 tablet Orally Once a day for 30 days 09/04/2024 Active Encounters Encounter Location Date Provider Diagnosis [facility] (PODIATRY) [address] [place] [address] [place] [address] 09/04/2024 Mathew Hoff Plan Of Treatment Medication Medication Name Sig Start Date Stop Date Notes Meloxicam 15 MG 1 tablet Orally Once a day for 30 days 06/2025 Progress Notes * Talia MERCADODOB:[birth year] (54 yo F)Acc No.[id number]:09/04/2024 Patient: Talia FREED :1970 A ge:54 Y S ex:Female Address:[address] [place], [address] * Refills Start Meloxicam Tablet, 15 MG, Orally, 30, 1 tablet, Once a day, 30 days, Refills=3 * true * Date: Generated for Lbi ng/Fadoloresg/eTransmitting on: 0 03/05/2025 05:00 PM EDT
--- OUTSIDE RECORDS SUMMARY | 2024-09-18 11:30 | XMS_ITS ---
Author Organization The [facility] in [place] Address [address] [place] [address] Care Team Providers Care Adjunct Instructor In Economics Name Role Phone None, Unknown or Primary Care Provider Unavailab Mathew Lee Unavailable [phone] Allergies Allergen (clinical drug ingredient) Drug/Non Drug [...] Encounters Encounter Location Date Provider Diagnosis [facility] [place] (PODIATRY) [address] [place] [address] [place] [address] 09/18/2024 Mathew Hoff Pseudarthrosis after fusion or [...] Juan J RUTHERFORD:[birth year] (54 yo F)Acc No.[id number]:09/18/2024 Follow Up Patient: Lian FREEDyl Provider: Miguel Hoff DPM, MS :1970 A ge:54 Y S ex:Female Date:09/18/2024 Address:[address], [id number] Pcp:Unknown or None Check In:03:18 PM ESTCheck [...] M usculoskeletal: Bone/Joint Symptoms d enies. C group home Pain d enies.?Leg cramps d enies. N [...] 09/18/2024 Generated for Taina marina/Nhi/Josiasitting on: 0 03/05/2025 04:59 PM EDT History and Physical Notes * [...]
--- OUTSIDE RECORDS SUMMARY | 2025-02-24 15:00 | XMS_ITS | Encounter Summary ---
Author Organization [facility] Address [address] [place] [address] Care Team Providers Care Glass Unloading Equipment Tender Name Role Phone Molina De Anda MD Primary Care Provider [phone] Valerie Groves DRUG ABUSE SOCIAL WORKER Unavailable [phone] [facility] + [phone] Reason for Visit * Reason Comments Med Management Follow-up Encounter Details Date Type Department Care Team (Late st Contact Info) Description 02/24/2025 3:00 PM EDT Office Visit [facility] [address] [facility] [address] [place] [address] Karime Dias [facility]- [address] [facility] [address] [place] [address] JESSIKA (generalized anxiety disorder) ; Severe episode of recurrent major depressive disorder, without psychotic features (HCC); PTSD (post-traumatic stress disorder) ; Insomnia, unspecified type; Sleep apnea, unspecified type Social History Tobacco Use Types Packs/Day Years [...] any clubs o r organizations such as spiritism groups, unions, fraternal or athletic groups, or [...] Recorded Patient Health Questionnaire-2 Score 5 01/22/2025 [facility] - Occupational [...] Sign Reading Time Taken Comments Blood Pressure 102/62 02/24/2025 3:01 PM EDT Pulse 88 02/24/2025 3:01 PM EDT Temperature - - Respiratory Rate - - Oxygen Saturation - - Inhaled Oxygen Concentration - - Weight 78.5 kg (173 lb) 02/24/2025 3:01 PM EDT Height - - Body Mass Index 28.79 10/02/2024 4:51 PM EDT documented in this encounter Progress Notes * Karime Dias PMHNP-BC - 02/24/2025 3:00 PM EDT Images from the original note were not included. HPI: Talia Mercado is a 54 y.o. female with a history of Fibromyalgia, gastric bypass (2019), sleep apnea (does not wear CPAP), MDD, JESSIKA, PTSD, and Insomnia. Patient is here today for follow-up. Patient was seen for initial intake on 01/22/25. At patient's last visit, her Lamictal was titrated off and she was started on Vraylar. She states that the change has helped with her rage and anger. She feels that she still has moments of rage, anger, and anxiety but is able to think things through better before lashing out. She still feels that she needs an increase int he medication to help her with her lingering symptoms. She continues to have problems with sleep. She states she takes Ambien 2-3 times a week to help her sleep longer. She reports that when she takes this medication, she will sleep for 4 hours instead of 2-3 hours. She recently got an MRI of her neck and lower back, which showed herniated discs in both areas. Sheis working with the pain specialist at [facility] in hopes to get an epidural in her neck in the future to help with the pain. She is scheduled to see Rohan Burns (CHERYL) on March 06 to start counseling. She states she islooking forward to this to learn coping skills and ways to control her anger. SUBJECTIVE: PAST MEDICAL HISTORY: Past Medical History: Diagnosis Date Abnormal foot pulse Allergic Depression Equinus contracture of left ankle Fibromyalgia GERD (gastroesophageal reflux disease) Headache History of reconstructive repair of rectocele Insomnia Iron (Fe) deficiency anemia Left foot pain Memory loss Numbness of tongue Onychocryptosis Onychomycosis Overactive bladder Panic attack Peripheral arterial disease Primary osteoarthritis, left ankle and foot Seasonal allergies Sleep difficulties Surgical wound dehiscence Tobacco use disorder Uterovaginal prolapse Varicella MEDICATIONS: Current Outpatient Medications Medication Instructions albuterol HFA 90 mcg/act inhaler 2 puffs, Inhalation, Every 6 hours PRN cyanocobalamin (VITAMIN B-12) 1,000 mcg, Daily RT DULoxetine (CYMBALTA) 60 mg, Oral, Daily DULoxetine (CYMBALTA) 30 mg, Oral, Daily fexofenadine (HUNG ALLERGY) 180 mg, Oral, Daily fluticasone (Flonase) 50 MCG/ACT nasal spray 2 sprays, Each Nostril, Daily, Shake gently. Before first use, prime pump. After use, clean tip and replace cap. gabapentin (NEURONTIN) 300 mg, Oral, 3 times daily meloxicam (MOBIC) 15 mg, Daily PRN pantoprazole (PROTONIX) 40 mg, Oral, Daily, Do not crush, chew, or split. Vraylar 1.5 mg, Oral, Daily zolpidem (AMBIEN) 10 mg, [...] packs/day: 1.00 Average packs/day: 1 pack/day for 39.6 years (39.6 ttl pk-yrs) Types: Cigarettes Start date: 1985 Passive exposure: Past Smokeless tobacco: Never Tobacco comments: Thinking about quitting Vaping Use Vaping status: Never Used Substance Use Topics Alcohol use: Not Currently Comment: caffeine: 3-4 cups per day Drug use: Not Currently Patient Care Team: Molina De Anda MD as PCP - General (Family Medicine) Valerie Groves NP as Nurse Practitioner (Family Medicine) SINDHU Marquez as Nurse Practitioner (Behavioral Health) PSYCHIATRIC REVIEW OF SYMPTOMS AND MENTAL STATUS EXAM ROS: Patient denies malaise, night sweats, weight loss, weight gain, cough, SOB, palpitations, chest pain, insomnia, dysphagia, abdominal pain, N/V/D, pruritus, rash, headache, dizziness, seizures, tremors, headache. Appearance Appearance: Normal grooming and hygiene. Appears stated age. Dressed appropriately for weather. Behavior Calm, cooperative, pleasant. Good posture. Psychomotor Activity Intact. No abnormal movements noted. Eye contact Good Speech Normal, clear, regular rate, rhythm and volume Affect Full range. Stable. Appropriate and congruent with mood. Mood Anxious, Depressed, and Irritable Thought Process [...] reasonable life decisions. OBJECTIVE: Visit Vitals BP 102/62 (BP Location: Right arm, Patient Position: Sitting) Pulse 88 Wt 173 lb BMI 28.79 kg/m?? Smoking Status Every Day BSA 1.9 m?? AIMS score: Facial and Oral Movements Muscles of Facial Expression: None, normal Lips and Perioral Area: None, normal Jaw: None, normal Tongue: None, normal Extremity Movements Upper (Arms, Wrists, Hands, Fingers): None, normal Lower (Legs, Knees, Ankles, Toes): None, normal Trunk Movements Neck, Shoulders, Hips: None, normal Dental Status Current Problems with Teeth and/or Dentures: No Does patient usually wear dentures?: No Lab results: 01/14/25 - CBC (Hgb 11.8), B12, Iron, TIBC, Ferritin ASSESSMENT AND PLAN: Impression: Patient's symptoms consistent with MDD, JESSIKA, and PTSD. Initial intake where symptoms and mood disorder questionnaire were reviewed were not consistent with bipolar disorder at this time. Will continue to closely monitor. She has noticed improvement in her rage and anger since starting on Vraylar. She is agreeable to increasing dose for further symptom reduction. We discussed importance of keeping counseling appointment to learn various coping skills to help with her anxiety and anger. She agrees and feels that this will be beneficial for her. [place] report checked on 01/21/25 shows she had Ambien filled on 01/17/25 through PCP. She has been on Ambien since 2022. Controlled substance agreement reviewed and signed today. UDS to be obtained before next visit. There is a possibility that this could be positive for THC asshe admits to use over the weekend due to her fibromyalgia pain. Patient was made aware of my maternity leave on 01/22/25 that will be occurring this Fall, as well ascoverage, plan for medication refills, and if any concerns arise. Assessment/Plan Diagnoses and all orders for this visit: JESSIKA (generalized anxiety disorder) Severe episode of recurrent major depressive disorder, without psychotic features (HCC) PTSD (post-traumatic stress disorder) Insomnia, unspecified type Sleep apnea, unspecified type Treatment Plan/Recommendations: - Continue Duloxetine for anxiety and depression. - Increase Vraylar to 3 mg daily for MDD. - Continue Ambien at night for insomnia. Encouraged to use sparingly for sleep. - Reminded her to get UDS that was ordered on January 22. - Keep counseling appointment scheduled for 03/06 for additional mental health support and treatment. - RTC in 5-6 weeks. Discussed any medication changes and follow-up plan with patient. Encouraged patient to call office sooner if symptoms worsen or if any questions/concerns arise. Patient was seen Face to Face, Total time spent with patient was 20 minutes, which includes reviewing chart documents, previous notes/records, counseling and discussion with patient and/or coordination of care as described above. documented in this encounter Plan of Treatment Upcoming Encounters Date Type Department Care Team (Late st Contact Info) Description 03/06/2025 3:00 PM EDT Social Work [facility] [address] [place] [address] [place] [address] Rohan Burns LPC 04/03/2025 9:00 AM EDT Telemedicine [facility] [address] [place] [place] [address] Karime Dias PMHNP-BC [address] [place] [address] [place] [address] 04/30/2025 4:30 PM EDT Office Visit [facility] [address] [place] [phone] Pascale Arana NP [address] [place] [address] documented as of this encounter Goals Goal [...] documented as of this encounter Care Teams Glass Unloading Equipment Tender Relationship Specialty Start Date End Date Molina De Anda MD [address] [place] [address] PCP - General Family Medicine 02/21/24 Valerie Groves NP [address] [place] [address] Nurse Practitioner Family Medicine 02/21/24 [facility] [address] [facility] [place] [address] Nurse Practitioner Behavioral Health 01/22/25 documented as of this encounter
--- OUTSIDE RECORDS SUMMARY | 2025-02-25 11:30 | XMS_ITS | Encounter Summary ---
Author Organization [facility] Address [address] [place] [address] Care Team Providers Care Artist Agent Name Role Phone Molina De Anda MD Primary Care Provider [phone] Valerie Groves METAL BENCH PATTERNMAKER Unavailable [phone] Karime Dias [facility]- Unavailable + [phone] Reason for Visit * Reason Comments Bipolar disorder with severe depression Encounter Details Date Type Department Care Team (Late st Contact Info) Description 02/25/2025 11:30 AM EDT Office Visit [facility] [address] [place] [address] Pascale Arana NP [address] [place] [address] Severe episode of recurrent major depressive disorder, [...] Recorded Patient Health Questionnaire-2 Score 5 01/22/2025 [facility] - Occupational Stress Questionnaire [...] for last several weeks, she has seen psychiatry instructor, meds changed and she is now onVraylar, [...] of the risks of continued smoking: stroke, [place], all forms of cancer, lung disease, and [...] sugary drinks. Pt meets qualifications of [facility] 4731-05-27 for weight loss. BMI>30 or [...] of the risks of continued smoking: stroke, [place], all forms of cancer, lung disease, and [...] PM EDT Social Work [facility] [address] [place] [address] [place] [address] Rohan Burns LPC 04/03/2025 9:00 AM EDT Telemedicine [facility] [address] [place] [address] Karime Dias [facility]- [address] [place] [address] [place] [address] 04/30/2025 4:30 PM EDT Office Visit [facility] [address] [place] [address] Pascale Arana NP [address] [place] [address] Scheduled Orders Name Type Priority Associated Diagnoses [...] documented as of this encounter Care Teams Artist Agent Relationship Specialty Start Date End Date Molina De Anda MD [address] [place] [address] PCP - General Family Medicine 02/21/24 Valerie Groves NP [address] [place] [address] Nurse Practitioner Family Medicine 02/21/24 Karime Dias PMHNP- [address] [facility] [address] Nurse Practitioner Behavioral Health 01/22/25 documented as of this encounter
--- OUTSIDE RECORDS SUMMARY | 2025-03-05 17:00 | XMS_ITS | Encounter Summary ---
Author Organization [facility] Address [address] [place] [address] Care Team Providers Care Time Study Technologist Name Role Phone Molina De Anda MD Primary Care Provider [phone] Valerie Groves GENERATOR WORKER Unavailable [phone] Karime Dias PMHNP- Unavailable + [phone] Encounter Details Date Type Department Care Team (Late Contact Info) Description 11/28/2024 Results Follow-Up [facility] [address] [place] [address] Social History Tobacco Use Types Packs/Day Years [...] Score 0 04/10/2024 [facility] Questionnaire Answer Date [...] Health [address] [place] [address] Rohan Burns LPC 04/03/2025 9:00 AM EDT Telemedicine [facility] [address] [place] [address] Karime Dias, [facility] [address] [place] [address] 04/30/2025 4:30 PM EDT Office Visit [facility] [address] [place] [address] Pascale Arana NP [address] [place] [address] documented as of this encounter Goals Goal [...] documented as of this encounter Care Teams Time Study Technologist Relationship Specialty Start Date End Date Molina De Anda MD [address] [place] [address] PCP - General Family Medicine 02/21/24 Valerie Groves NP [address] [place] [address] Nurse Practitioner Family Medicine 02/21/24 Karime Dias PMHNP- [address] [address] [place] [address] Nurse Practitioner Behavioral Health 01/22/25 documented as of this encounter
--- OUTSIDE RECORDS SUMMARY | 2025-03-05 17:00 | XMS_ITS | Encounter Summary ---
Author Organization [facility] Address [address] [place] [address] Care Team Providers Care Bench Boring Machine Operator Name Role Phone Molina De Anda MD Primary Care Provider [phone] Valerie Groves STRUCTURAL FITTER Unavailable [phone] Karime Dias [facility] + [phone] Encounter Details Date Type Department Care Team (Late st Contact Info) Description 01/06/2025 Abstract [facility] [address] [place] [address] Pascale Arnaa NP [address] [place] [place] [address] Social History Tobacco Use Types Packs/Day Years [...] Recorded Patient Health Questionnaire-2 Score 0 04/10/2024 [facility] of Occupat ional Health [...] [facility] [address] [place] [address] Rohan Burns LPC 04/03/2025 9:00 AM EDT Telemedicine [facility] [address] [place] [address] Karime Dias, [facility] [address] [place] [address] 04/30/2025 4:30 PM EDT Office Visit [facility] [address] [place] [address] Pascale Arana NP [address] [place] [address] documented as of this encounter Goals Goal [...] documented as of this encounter Care Teams Bench Boring Machine Operator Relationship Specialty Start Date End Date Molina De Anda MD [address] [place] [address] PCP - General Family Medicine 02/21/24 Valerie Groves NP [address] [place] [address] Nurse Practitioner Family Medicine 02/21/24 Karime Dias [facility] [address] [facility] [place] [address] Nurse Practitioner Behavioral Health 01/22/25 documented as of this encounter
--- OUTSIDE RECORDS SUMMARY | 2025-03-05 17:00 | XMS_ITS | Encounter Summary ---
Author Organization [facility] Address [address] [place] [address] Care Team Providers Care Reversal Print Inspector Name Role Phone Molina De Anda MD Primary Care Provider [phone] Valerie Groves SHEET METAL ROOFER Unavailable [phone] [facility] + [phone] Encounter Details Date Type Department Care Team (Late st Contact Info) Description 02/24/2025 Bamboo flowsheet [facility] 112 [facility] [address] [place] [address] Karime Dias [facility]- [address] [facility] [address] [place] [address] Social History Tobacco Use Types Packs/Day [...] Recorded Patient Health Questionnaire-2 Score 5 01/22/2025 [facility] of Occupat ional Health - [...] [address] [place] [address] Rohan Burns LPC 04/03/2025 9:00 AM EDT Telemedicine [facility] [address] [place] [address] Karime Dias, [facility] [address] [place] [address] 04/30/2025 4:30 PM EDT Office Visit [facility] [address] [place] [address] Pascale Arana, MARY JO [address] [place] [address] documented as of this encounter Goals Goal [...] documented as of this encounter Care Teams Reversal Print Inspector Relationship Specialty Start Date End Date Molina De Anda MD [address] [place] [address] PCP - General Family Medicine 02/21/24 Valerie Groves NP [address] [place] [address] Nurse Practitioner Family Medicine 02/21/24 Karime Dias [facility] [address] [address] [place] [address] Nurse Practitioner Behavioral Health 01/22/25 documented as of this encounter
--- OUTSIDE RECORDS SUMMARY | 2025-03-05 17:00 | XMS_ITS | Encounter Summary ---
Author Organization [facility] Address [address] [place] [address] Care Team Providers Care Cart Attendant Name Role Phone Shaikh NITHIN Main Primary Care Provider [phone] Shaikh NITHIN Main Primary Care Provider [phone] Molina De Anda MD Primary Care Provider [phone] Valerie Groves WALLPAPER INSPECTOR Unavailable [phone] Karime Dias [facility]- Unavailable [phone] Reason for Visit * Reason Comments Med Refill Encounter Details Date Type Department Care Team (Late st Contact Info) Description 10/16/2023 [facility] [address] [place] [address] Shaikh Main MD [address] [place] [address] Psychophysiological insomnia Social History Tobacco Use Types [...] How often do you attend chur or anglican services? Never 08/07/2023 Do you [...] Recorded Patient Health Questionnaire-2 Score 6 08/03/2023 [facility] of Occupat ional Health - Occupational Stress [...] [address] [place] [address] Rohan Burns LPC 04/03/2025 9:00 AM EDT Telemedicine [facility] [address] [place] [address] Karime Dias, PMHNP- [address] [place] [address] 04/30/2025 4:30 PM EDT Office Visit [facility] [address] [place] [address] Pascale Arana NP [address] [place] [address] documented as of this encounter Goals Goal [...] documented as of this encounter Care Teams Cart Attendant Relationship Specialty Start Date End Date Shaikh Main MD PCP - General Internal Medicine 04/20/23 01/07/24 Shaikh Main MD [address] [place] [address] PCP - General Internal Medicine 01/08/24 02/20/24 Molina De Anda MD [address] [place] [address] PCP - General Family Medicine 02/21/24 Valerie Groves NP [address] [place] [address] Nurse Practitioner Family Medicine 02/21/24 Karime Dias, [facility] [address] [place] [address] [place] [address] Nurse Practitioner Behavioral Health 01/22/25 documented as of this encounter
--- OUTSIDE RECORDS SUMMARY | 2025-03-05 17:00 | XMS_ITS | Encounter Summary ---
Author Organization [facility] Address [address] [place] [address] Care Team Providers Care Finance Admin Name Role Phone Molina De Anda MD Primary Care Provider [phone] Valerie Groves SPECIAL EFFECTS SPECIALIST Unavailable [phone] Karime Dias HNP- Unavailable + [phone] Reason for Visit * Reason Onset Date Comments Med Refill 11/18/2024 Encounter Details Date Type Department Care Team (Late st Contact Info) Description 11/18/2024 Refill [facility] [address] [place] [address] Molina De Anda MD [address] [place] [address] Plantar fasciitis of right foot (Primary Dx) [...] Health Questionnaire-2 Score 0 04/10/2024 [facility] of Occupat ionme Health - Occupational Stress Questionnaire Answer Date [...] [facility] [address] [facility] [address] [place] [address] Rohan Burns LPC 04/03/2025 9:00 AM EDT Telemedicine [facility] [address] [place] [address] Karime Dias, [facility] [address] [facility] [address] [place] [address] 04/30/2025 4:30 PM EDT Office Visit [facility] [address] [place] [address] Pascale Arana, MARY JO [address] [place] [address] documented as of this encounter Goals Goal [...] documented as of this encounter Care Teams Finance Admin Relationship Specialty Start Date End Date Molina De Anda MD [address] [place] [address] PCP - General Family Medicine 02/21/24 Valerie Groves NP [address] [place] [address] Nurse Practitioner Family Medicine 02/21/24 Karime Dias [facility] [address] [facility] [address] [place] [address] Nurse Practitioner Behavioral Health 01/22/25 documented as of this encounter
--- OUTSIDE RECORDS SUMMARY | 2025-03-05 17:00 | XMS_ITS | Encounter Summary ---
Author Organization [facility] Address [address] [place] [address] Care Team Providers Care Marklogic Developer Name Role Phone Molina De Anda MD Primary Care Provider [phone] Valerie Groves POWDER GUARD Unavailable [phone] Karime Dias PMHNP- Unavailable + [phone] Encounter Details Date Type Department Care Team [...] Recorded Patient Health Questionnaire-2 Score 5 01/22/2025 [facility] of Occupat ional Health - Occupational [...] Health [address] [place] [address] Rohan Burns LPC 04/03/2025 9:00 AM EDT Telemedicine [facility] [address] [place] [address] Karime Dias [facility] [address] [place] [place] [address] 04/30/2025 4:30 PM EDT Office Visit [facility] [address] [place] [address] Pascale Arana NP [address] [place] [address] documented as of this encounter Goals Goal [...] documented as of this encounter Care Teams Marklogic Developer Relationship Specialty Start Date End Date Molina De Anda MD [address] [place] [address] PCP - General Family Medicine 02/21/24 Valerie Groves NP [address] [place] [address] Nurse Practitioner Family Medicine 02/21/24 [facility] [address] [address] [place] [address] Nurse Practitioner Behavioral Health 01/22/25 documented as of this encounter
--- OUTSIDE RECORDS SUMMARY | 2025-03-05 17:00 | XMS_ITS | Encounter Summary ---
Author Organization [facility] Address [address] [place] [address] Care Team Providers Care Founder And Ceo Name Role Phone Molina De Anda MD Primary Care Provider [phone] Valerie Groves SUPERVISOR LOOPING Unavailable [phone] Karime Dias [facility] + [phone] Encounter Details Date Type Department Care Team (Late st Contact Info) Description 02/18/2025 Abstract [facility] [address] [place] [address] Pascale Arana NP [address] [place] [address] Social History Tobacco Use Types Packs/Day Years [...] Recorded Patient Health Questionnaire-2 Score 5 01/22/2025 [facility] of Occupat ional Health - [...] [place] [facility] [address] [facility] [address] [place] [address] Rohan Burns LPC 04/03/2025 9:00 AM EDT Telemedicine [facility] [address] [place] [address] Karime Dias, PMHNP- [address] [place] [place] [address] 04/30/2025 4:30 PM EDT Office Visit [facility] [address] [place] [address] Pascale Arana NP [address] [place] [address] documented as of this encounter Goals Goal [...] documented as of this encounter Care Teams Founder And Ceo Relationship Specialty Start Date End Date Molina De Anda MD [address] [place] [address] PCP - General Family Medicine 02/21/24 Valerie Groves NP [address] [place] [address] Nurse Practitioner Family Medicine 02/21/24 Karime Dias [facility] [address] [address] [place] [address] Nurse Practitioner Behavioral Health 01/22/25 documented as of this encounter
--- OUTSIDE RECORDS SUMMARY | 2025-03-05 17:00 | XMS_ITS | Clinical Summary ---
Author Organization [facility] Address [address] [place] [address] Care Team Providers Care Retail Presentation Specialist Name Role Phone Shaikh NITHIN Main Primary Care Provider [phone] Allergies Active Allergy Reactions Criticality Noted Date [...] complete this topic Insurance AETNA Care Teams Retail Presentation Specialist Relationship Specialty Start Date End Date Shaikh Main MD PCP - General Family Medicine 04/07/23
--- OUTSIDE RECORDS SUMMARY | 2025-03-05 17:00 | XMS_ITS | Encounter Summary ---
Author Organization [facility] Address [address] [place] [address] Care Team Providers Care Straightedge Worker Name Role Phone Molina De Anda MD Primary Care Provider [phone] Valerie Groves ACCESS CLINICIAN Unavailable [phone] [facility] Di[facility] + [phone] Encounter Details Date Type Department Care Team (Late st Contact Info) Description 02/26/2025 Telephone [facility] [address] [place] [address] Pascale Arana NP [address] [place] [address] Social History Tobacco Use Types Packs/Day Years [...] How often do you attend chur or gnosticism services? Never 08/07/2023 Do you belong to any clubs o r organizations such as mormon groups, unions, fraternal or athletic groups, or [...] Patient Health Questionnaire-2 Score 5 01/22/2025 [facility] of Occupat ional Health - [...] [address] [place] [address] Rohan Burns LPC 04/03/2025 9:00 AM EDT Telemedicine [facility] [address] [place] [address] Karime Dias, PMHNP- [address] [place] [place] [address] 04/30/2025 4:30 PM EDT Office Visit [facility] [address] [place] [address] Pascale Arana NP [address] [place] [address] documented as of this encounter Goals Goal [...] documented as of this encounter Care Teams Straightedge Worker Relationship Specialty Start Date End Date Molina De Anda MD [address] [place] [address] PCP - General Family Medicine 02/21/24 Valerie Groves NP [address] [place] [address] Nurse Practitioner Family Medicine 02/21/24 Karime Dias [facility] [address] [facility] [place] [address] Nurse Practitioner Behavioral Health 01/22/25 documented as of this encounter
--- OUTSIDE RECORDS SUMMARY | 2025-03-05 17:00 | XMS_ITS | Encounter Summary ---
Author Organization [facility] Address [address] [place] [address] Care Team Providers Care Thresher Broomcorn Name Role Phone Molina De Anda MD Primary Care Provider [phone] Valerie Groves FINANCIAL SERVICES AUDITOR Unavailable [phone] Karime Dias [facility] + [phone] Encounter Details Date Type Department Care Team (Late st Contact Info) Description 01/06/2025 Abstract [facility] [address] [place] [address] Pascale Arana NP [address] [place] [address] Social History Tobacco Use Types Packs/Day Years [...] 04/10/2024 [facility] of Occupat ional Health - Occupational Stress [...] [facility] [address] [place] [address] Rohan Burns LPC 04/03/2025 9:00 AM EDT Telemedicine [facility] [address] [place] [address] Karime Dias, [facility] [address] [place] [place] [address] 04/30/2025 4:30 PM EDT Office Visit [facility] [address] [place] [address] Pascale Arana NP [address] [place] [address] documented as of this encounter Goals Goal [...] documented as of this encounter Care Teams Thresher Broomcorn Relationship Specialty Start Date End Date Molina De Anda MD [address] [place] [address] PCP - General Family Medicine 02/21/24 Valerie Groves NP [address] [place] [address] Nurse Practitioner Family Medicine 02/21/24 [facility] [address] [facility] [place] [address] Nurse Practitioner Behavioral Health 01/22/25 documented as of this encounter
--- OUTSIDE RECORDS SUMMARY | 2025-03-05 17:00 | XMS_ITS | Encounter Summary ---
Author Organization [facility] Address [address] [place] [address] Care Team Providers Care Underwater Hunter Trapper Name Role Phone Molina De Anda MD Primary Care Provider [phone] Valerie Groves EMBEDDED CASE MANAGER Unavailable [phone] Karime Dias [facility] + [phone] Encounter Details Date Type Department Care Team (Late st Contact Info) Description 02/21/2025 Abstract [facility] [address] [place] [address] Pascale Arana NP [address] [place] [address] Social History Tobacco Use Types Packs/Day Years [...] How often do you attend chur or anabaptist services? Never 08/07/2023 Do you belong to [...] Recorded Patient Health Questionnaire-2 Score 5 01/22/2025 [facility] of Occupat ional Health - Occupational [...] [place] [facility] [address] [facility] [address] [place] [address] Rohan Burns LPC 04/03/2025 9:00 AM EDT Telemedicine [facility] [address] [place] [address] Karime Dias, PMHNP- [address] [place] [address] 04/30/2025 4:30 PM EDT Office Visit [facility] [address] [place] [address] Pascale Arana NP [address] [place] [address] documented as of this encounter Goals Goal [...] documented as of this encounter Care Teams Underwater Hunter Trapper Relationship Specialty Start Date End Date Molina De Anda MD [address] [place] [address] PCP - General Family Medicine 02/21/24 Valerie Groves NP [address] [place] [address] Nurse Practitioner Family Medicine 02/21/24 Karime Dias [facility] [address] [address] [place] [address] Nurse Practitioner Behavioral Health 01/22/25 documented as of this encounter
--- OUTSIDE RECORDS SUMMARY | 2025-03-05 17:00 | XMS_ITS | Encounter Summary ---
Author Organization [facility] Address [address] [place] [address] Care Team Providers Care Quality Assurance Qa Lab Analyst Name Role Phone Molina De Anda MD Primary Care Provider [phone] Valerie Groves INSTRUMENTAL MUSICIAN Unavailable [phone] Karime Dias [facility]- Unavailable + [phone] Encounter Details Date Type Department Care Team (Late st Contact Info) Description 11/14/2024 Orders Only [facility] FM [address] [place] [address] Pascale Arana NP [address] [place] [address] UTI (urinary tract infection), uncomplicated (Primary Dx) [...] often do you attend chur ch or bahai services? Never 08/07/2023 Do you [...] WAY [facility] [address] [place] [address] Rohan Burns LPC 04/03/2025 9:00 AM EDT Telemedicine [facility] [address] [place] [address] Karime Dias PMHNP- [address] [facility] [address] [place] [address] 04/30/2025 4:30 PM EDT Office Visit [facility] [address] [place] [address] Pascale Arana NP [address] [place] [address] Scheduled Orders Name Type Priority Associated Diagnoses [...] documented as of this encounter Care Teams Quality Assurance Qa Lab Analyst Relationship Specialty Start Date End Date Molina De Anda MD [address] [place] [address] PCP - General Family Medicine 02/21/24 Valerie Groves NP [address] [place] [address] Nurse Practitioner Family Medicine 02/21/24 [facility] [address] [place] [address] [place] [address] Nurse Practitioner Behavioral Health 01/22/25 documented as of this encounter
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
--- OUTSIDE RECORDS SUMMARY | 2025-03-05 17:00 | XMS_ITS | Encounter Summary ---
Author Organization [facility] Address [address] [place] [address] Care Team Providers Care Lumber Marker Name Role Phone Shaikh NITHIN Main Primary Care Provider [phone] Shaikh NITHIN Main Primary Care Provider [phone] Molina De Anda MD Primary Care Provider [phone] Valerie Groves CHEST PAIN COORDINATOR Unavailable [phone] Karime Dias [facility]- Unavailable Encounter Details Date Type Department Care Team (Late st Contact Info) Description 11/20/2023 Orders Only [facility] IM [address] [place] [address] Shaikh Main MD [address] [place] [address] Social History Tobacco Use Types Packs/Day Years [...] Recorded Patient Health Questionnaire-2 Score 0 11/13/2023 [facility] of Occupat ional Health - Occupational [...] Health [address] [place] [address] Rohan Burns LPC 04/03/2025 9:00 AM EDT Telemedicine [facility] [address] [place] [address] Karime Dias, PMHNP- [address] [place] [place] [address] 04/30/2025 4:30 PM EDT Office Visit [facility] [address] [place] [address] Pascale Arana NP [address] [place] [address] documented as of this encounter Goals Goal [...] documented as of this encounter Care Teams Lumber Marker Relationship Specialty Start Date End Date Shaikh Main MD PCP - General Internal Medicine 04/20/23 01/07/24 Shaikh Main MD [address] [place] [address] PCP - General Internal Medicine 01/08/24 02/20/24 Molina De Anda MD [address] [place] [address] PCP - General Family Medicine 02/21/24 Valerie Groves NP [address] [place] [address] Nurse Practitioner Family Medicine 02/21/24 Karime Dias PMHNP- [address] [facility] [place] [address] Nurse Practitioner Behavioral Health 01/22/25 documented as of this encounter
--- OUTSIDE RECORDS SUMMARY | 2025-03-05 17:00 | XMS_ITS | Encounter Summary ---
Author Organization [facility] Address [address] [place] [address] Care Team Providers Care Director Of Knowledge Management Name Role Phone Molina De Anda MD Primary Care Provider [phone] Valerie Groves AGRICULTURE WORKER Unavailable [phone] [facility] Di[facility] + [phone] Encounter Details Date Type Department Care Team (Late st Contact Info) Description 11/18/2024 Orders Only [facility] [address] [place] [address] Pascale Arana NP [address] [place] [address] Social History Tobacco Use Types Packs/Day Years [...] Recorded Patient Health Questionnaire-2 Score 0 04/10/2024 [facility] of Occupat ional Health - [...] [facility] [address] [place] [address] Rohan Burns LPC 04/03/2025 9:00 AM EDT Telemedicine [facility] [address] [place] [address] Karime Dias, PMHNP- [address] [place] [address] [place] [address] 04/30/2025 4:30 PM EDT Office Visit [facility] ER[facility] [address] [place] [address] Pascale Arana NP [address] [place] [address] documented as of this encounter Goals Goal [...] (11/18/2024 2:41 PM EDT) us Pascale Arana AGRICULTURE WORKER LAB CHG PERFORMABLES Final Resu lt documented in this encounter Visit Diagnoses Not on filedocumented in this encounter Additional Health Concerns Active Problems Noted Date Diagnosed Date Patient on antidepressant monitoring plan 2023 Assessment Noted Time PHQ-9 Depression Total Score: 23 024 4:27 PM EST documented as of this encounter Care Teams Director Of Knowledge Management Relationship Specialty Start Date End Date Molina De Anda MD [address] [place] [address] PCP - General Family Medicine 02/21/24 Valerie Groves NP [address] [place] [address] Nurse Practitioner Family Medicine 02/21/24 [facility] Di[facility] [address] [place] [address] [address] [place] [address] Nurse Practitioner Behavioral Health 01/22/25 documented as of this encounter
--- OUTSIDE RECORDS SUMMARY | 2025-03-05 17:00 | XMS_ITS | Encounter Summary ---
Author Organization [facility] Address [address] [place] [address] Care Team Providers Care Wine Cellar Worker Name Role Phone Molina De Anda MD Primary Care Provider [phone] Valerie Groves SATELLITE TECHNICIAN Unavailable [phone] Kar[facility] Di[facility] + [phone] Encounter Details Date Type Department Care Team (Late st Contact Info) Description 02/25/2025 Abstract [facility] [address] [place] [address] Pascale Arana NP [address] [place] [address] Social History Tobacco Use Types Packs/Day Years [...] Recorded Patient Health Questionnaire-2 Score 5 01/22/2025 [facility] of Occupat ional Health - Occupational Stress [...] [facility] [address] [facility] [address] [place] [address] Rohan Burns LPC 04/03/2025 9:00 AM EDT Telemedicine [facility] [address] [place] [address] Karime Dias, PMHNP- [address] [place] [address] [place] [address] 04/30/2025 4:30 PM EDT Office Visit [facility] [address] [place] [address] Pascale Arana NP [address] [place] [address] documented as of this encounter Goals Goal [...] documented as of this encounter Care Teams Wine Cellar Worker Relationship Specialty Start Date End Date Molina De Anda MD [address] [place] [address] PCP - General Family Medicine 02/21/24 Valerie Groves NP [address] [place] [address] Nurse Practitioner Family Medicine 02/21/24 Karime Dias [facility] [address] [address] [place] [address] Nurse Practitioner Behavioral Health 01/22/25 documented as of this encounter
--- OUTSIDE RECORDS SUMMARY | 2025-03-05 17:00 | XMS_ITS | Encounter Summary ---
Author Organization [facility] Address [address] [place] [address] Care Team Providers Care Police Pilot Name Role Phone Molina De Anda MD Primary Care Provider [phone] Valerie Groves BRIDGE MANAGER Unavailable [phone] Karime Dias [facility]- Unavailable + [phone] Encounter Details Date Type Department Care Team (Late st Contact Info) Description 02/26/2025 Refill [facility] CW FM [address] [place] [address] Pascale Arana NP [address] [place] [address] Gastroesophageal reflux disease, unspecified whether esophagitis present [...] 08/07/2023 How often do you attend chur [employer] or quaker services? Never 08/07/2023 Do you [...] [facility] [address] [facility] [address] [place] [address] Rohan Burns LPC 04/03/2025 9:00 AM EDT Telemedicine [facility] [address] [place] [address] [facility] [address] [facility] [address] [place] [address] 04/30/2025 4:30 PM EDT Office Visit [facility] FM [address] [place] [address] Pascale Arana, MARY JO [address] [place] [address] documented as of this encounter Goals Goal [...] documented as of this encounter Care Teams Police Pilot Relationship Specialty Start Date End Date Molina De Anda MD [address] [place] [address] PCP - General Family Medicine 02/21/24 Valerie Groves NP [address] [place] [address] Nurse Practitioner Family Medicine 02/21/24 Karime Dias PMHNP- [address] [facility] [place] [address] Nurse Practitioner Behavioral Health 01/22/25 documented as of this encounter
--- OUTSIDE RECORDS SUMMARY | 2025-03-05 17:00 | XMS_ITS | Encounter Summary ---
Author Organization [facility] Address [address] [place] [address] Care Team Providers Care Audiometric Technician Name Role Phone Molina De Anda MD Primary Care Provider [phone] Valerie Groves HIGH SCHOOL ADMISSIONS REPRESENTATIVE Unavailable [phone] Karime Dias PMHNP- Unavailable + [phone] Encounter Details Date Type Department Care Team (Late st Contact Info) Description 02/26/2025 Clinisync Result Encounter [facility] External Department Unsolicited [...] often do you attend chur ch or voodoo services? Never 08/07/2023 Do you belong to [...] Score 5 01/22/2025 [facility] - Occupational Stress Questionnaire Answer [...] [address] [place] [address] Rohan Burns LPC 04/03/2025 9:00 AM EDT Telemedicine [facility] [address] [place] [address] Karime Dias [facility] [address] [place] [address] [place] [address] 04/30/2025 4:30 PM EDT Office Visit [facility] ER[facility] FM [address] [place] [address] Pascale Arana NP [address] [place] [place] [address] documented as of this encounter Goals Goal Patient Goal Type Associated Problems Recent Progress Patient-Stated? Author Help patient manage antidepressant medication Care Plan Patient on antidepressant monitoring plan Shaikh Morel MD documented as of this encounter Procedures Procedure Name Priority Date/Time Associated Diagnosis Comments SEGMENTAL BLOOD PRESSURE 02/26/2025 3:34 PM EDT documented in this encounter Results * SEGMENTAL BLOOD PRESSURE (02/26/2025 3:34 PM EDT) Anatomical Region Laterality Modality Radiographic Maeve ging 02/26/2025 3:34 PM EDT Narrative 02/27/2025 9:07 [place] [address] Cardiology Report Signed Patient: TALIA RUTHERFORD MR#: [id number] : 1970 Acct:[id number] Age/Sex: 54 / F ADM Date: 02/26/25 Loc: CARD Attending Dr: Kajal LAZAR Ordering Physician: Kajal Escobedo Date of Service: 02/26/25 Procedure(s): CA segmental UE or LE PONCE Accession Number(s): [id number] cc: Pascale Arana NP; Kajal Escobedo [facility] Test Date: 2025-02-26 Pat Name: TALIA RUTHERFORD Department: Room: - Gender: Female Charter Pilot: Cari Nichole : 1970 Requested By: Kajal Escobedo Order Number: [id number] Garth MD: SCOTT PARKINSON M.D. Interpretive Statements Summary of the findings: Right leg: TEREZA= 1.28; TBI= 0.93. Doppler waveforms demonstrate multiphasic flow at the posterior tibial and biphasic flow at the dorsalis pedis arteries. Left leg: TEREZA= 1.30; TBI= 0.83. Doppler waveforms demonstrate multiphasic flow at the posterior tibial and biphasic flow at the dorsalis pedis arteries. Segmental pressures: Segmental pressures are normal bilaterally. Pulse volume recordings: PVRs at the high thigh, below knee, and ankle levels show normal waveforms. Conclusion: Right and left ankle-brachial indices are suggestive of normal overall arterial flow at rest. Toe-brachial indices are not suggestive of PAD. Segmental pressures show no segmental disease. Pulse volume recordings indicate good overall resting arterial flow. Waveform analysis suggests normal bilateral arterial flow. Overall normal resting physiologic examination. Electronically Signed On 02-27-2025 9:07:26 EDT by SCOTT PARKINSON M.D. Dictated By: SCOTT PARKINSON Signed By: 02/27/25 0907 02/27/25 0907 DD/ 1534 TD/TT: Kiln Feeder: Procedure Note Radiology, Radiologist, MD - 02/27/2025 [place] [address] Cardiology Report Signed Patient: TALIA RUTHERFORD DMR#: [id number] : 1970Acct:[id number] Age/Sex: 54 / FADM Date: 02/26/25 Loc: CARD Attending Dr: Kajal LAZAR Ordering Physician: Kajal Escobedo Date of Service: 02/26/25 Procedure(s): CA segmental UE or LE PONCE Accession Number(s): [id number] cc: Pascale Arana NP; Kajal Escobedo [facility] Test Date: 2025-02-26 Pat Name: TALIA RUTHERFORD Department: Room: - Gender: Female Charter Pilot: Cari Nichole : 1970 Requested By: Kajal Escobedo Order Number: [id number] Reading MD: SCOTT PARKINSON M.D. Interpretive Statements Summary of the findings: Right leg: TEREZA= 1.28; TBI= 0.93. Doppler waveforms demonstrate multiphasic flow at the posterior tibial and biphasic flow at the dorsalis pedis arteries. Left leg: TEREZA= 1.30; TBI= 0.83. Doppler waveforms demonstrate multiphasic flow at the posterior tibial and biphasic flow at the dorsalis pedis arteries. Segmental pressures: Segmental pressures are normal bilaterally. Pulse volume recordings: PVRs at the high thigh, below knee, and anklelevels show normal waveforms. Conclusion: Right and left ankle-brachial indices are suggestive of normal overall arterial flow at rest. Toe-brachial indices are not suggestive of PAD. Segmental pressures show no segmental disease. Pulse volume recordings indicate good overall resting arterial flow. Waveform analysis suggests normal bilateral arterial flow. Overall normal resting physiologic examination. Electronically Signed On 02-27-2025 9:07:26 EDT by SCOTT PARKINSON M.D. Dictated By: SCOTT PARKINSON Signed By:02/27/25 0907 02/27/25 0907 DD/ 1534 TD/TT: Kiln Feeder: us Generic External Data Provider IMG XR PROCEDURES Final Result documented in this encounter Visit Diagnoses Not on filedocumented in this encounter Additional Health Concerns Active Problems Noted Date Diagnosed Date Patient on antidepressant monitoring plan 2023 Assessment Noted Time PHQ-9 Depression Total Score: 21 025 9:29 AM EDT documented as of this encounter Care Teams Audiometric Technician Relationship Specialty Start Date End Date Molina De Anda MD [address] [place] [address] PCP - General Family Medicine 02/21/24 Valerie Groves NP [address] [place] [address] Nurse Practitioner Family Medicine 02/21/24 Karime Dias PMHNP- [address] [address] [place] [address] Nurse Practitioner Behavioral Health 01/22/25 documented as of this encounter
--- OUTSIDE RECORDS SUMMARY | 2025-03-05 17:01 | XMS_ITS | Clinical Summary ---
Author Organization Health: [facility] Address [id number] [address] [place] [address] Care Team Providers Care Tabulating Machine Mechanic Name Role Phone No Pcp, No Pcp Primary Care Provider Unavailabl e Allergies Active Allergy Reactions Criticality Noted Date Comments Penicillins Hives 02/08/2023 Medications sod sulf-pot chloride-mag sulf 1.479-0.188- 0.225 gram tablet See instructional sheet given by office. Patient was given a Referral.IM voucher to use, this is not to [...] [facility] [address] [place] [address] Tania Asif MD 02/06/2025 2:15 PM EDT Office Visit [facility] [address] [place] [address] Leslye Muniz, Cystocele with second [...] Health - Urogyn [address] [place] [address] Tania Asif MD [address] [place] [address] Health Maintenance Due Date Last Done Comments Tobacco Counseling 1970 Depression Screening 1983 Adult BMI Follow Up Plan 1989 DTaP,Tdap and Td Vaccines (1 - Tdap) 1990 Pap Smear 1992 Zoster (Shingles) Vaccine (1 of 2) 2021 Influenza Vaccine 03/24/2025 Adult BMI Screening 02/06/2026 02/06/2025 Tobacco Screening 02/24/2026 02/24/2025 Medical Devices Not on file Insurance [employer] Care Teams Tabulating Machine Mechanic Relationship Specialty Start Date End Date No Pcp, [place] [address] PCP - General Family Medicine 11/21/18
--- OUTSIDE RECORDS SUMMARY | 2025-03-05 17:01 | XMS_ITS | Encounter Summary ---
Author Organization [facility] Address [address] [place] [address] Care Team Providers Care Metal Molder Name Role Phone Shaikh NITHIN Main Primary Care Provider [phone] Shaikh NITHIN Main Primary Care Provider [phone] Molina De Anda MD Primary Care Provider [phone] Valerie Groves HAIR CLIPPER POWER Unavailable [phone] Karime Dias [facility]- Unavailable Encounter Details Date Type Department Care Team (Late st Contact Info) Description 08/02/2023 Orders Only [facility] [address] [place] [address] Shaikh Main MD [address] [place] [address] Social History Tobacco Use Types Packs/Day Years [...] week 07/03/2023 How often do you attend [facility] or judaism services? Patient declined 07/03/2023 Do you belong [...] Recorded Patient Health Questionnaire-2 Score 6 08/03/2023 [facility] of Occupat ional Health - Occupational Stress [...] slept in a intermediate (including now)? No 07/03/2023 Comments Unknown Sex [...] Work [facility] [address] [facility] [address] [place] [address] Rohan Burns LPC 04/03/2025 9:00 AM EDT Telemedicine [facility] [address] [facility] [address] [place] [address] [facility] Dias [facility] [address] [facility] [address] [place] [address] 04/30/2025 4:30 PM EDT Office Visit [facility] [address] [place] [address] Pascale Arana NP [address] [place] [address] documented as of this encounter Procedures Procedure Name Priority Date/Time Associated Diagnosis Comments MISCELLANEOUS LAB TEST Routine 07/28/2023 1:49 PM EST documented in this encounter Results * - Miscellaneous Test (07/28/2023 1:49 PM EST) us Shaikh Etelvina WELL[facility] LAB BLOOD ORDERABLES Final Resu lt documented in this encounter Visit Diagnoses Not on filedocumented in this encounter Care Teams Metal Molder Relationship Specialty Start Date End Date Shaikh Main MD PCP - General Internal Medicine 04/20/23 01/07/24 Shaikh Main MD [address] [place] [address] PCP - General Internal Medicine 01/08/24 02/20/24 Molina De Anda MD [address] [place] [address] PCP - General Family Medicine 02/21/24 Valerie Groves NP [address] [place] [address] Nurse Practitioner Family Medicine 02/21/24 Karime Dias PMHNP- [address] [place] [address] Nurse Practitioner Behavioral Health 01/22/25 documented as of this encounter
--- OUTSIDE RECORDS SUMMARY | 2025-03-05 17:01 | XMS_ITS | Clinical Summary ---
Author Organization [facility] Address [address] [place] [address] Care Team Providers Care Caustic Strength Inspector Name Role Phone Molina De Anda MD Primary Care Provider [phone] Valerie Groves LICENSED VOCATIONAL NURSE Unavailable [phone] Karime Dias PMHNP- Unavailable [phone] Allergies Active Allergy Reactions Criticality Noted Date [...] of the risks of continued smoking: stroke, NH, all forms of cancer, lung disease, and [...] of the risks of continued smoking: stroke, NH, all forms of cancer, lung disease, and [...] of the risks of continued smoking: stroke, NH, all forms of cancer, lung disease, and [...] of the risks of continued smoking: stroke, NH, all forms of cancer, lung disease, and [...] of the risks of continued smoking: stroke, NH, all forms of cancer, lung disease, and [...] abdominal wall 08/12/2024 11/20/2024 Overview (08/12/2024): [employer] [id number] EXP: 10/22/2026 LOT # [id number] Assessment & Plan (08/12/2024 5:50 PM EST): [...] Date Type Department Care Team Description 02/26/2025 Clinisync Result Encounter [facility] External Department Unsolicited Provider, Generic External Data 02/26/2025 Refill [facility] [address] [place] [address] Pascale Arana NP Gastroesophageal reflux disease, unspecified whether esophagitis present (Primary Dx) 02/26/2025 Telephone [facility] [address] [place] [address] Pascale Arana NP 02/25/2025 11:30 AM EDT Office Visit [facility] [address] [place] [address] Pascale Arana NP Severe episode of recurrent major depressive disorder, without psychotic features (HCC) (Primary Dx); Cigarette nicotine dependence without complication; PTSD (post-traumatic stress disorder) ; Class 1 obesity due to excess calories without serious comorbidity with body mass index (BMI) of 32.0 to 32.9 in adult; Iron deficiency anemia secondary to inadequate dietary iron intake; Primary insomnia 02/25/2025 Abstract [facility] [address] [place] [address] Pascale Arana NP 02/24/2025 3:00 PM EDT Office Visit [facility] [place] [facility] [address] [place] [address] Karime Dias, [facility] (generalized anxiety disorder) ; Severe episode of recurrent major depressive disorder, without psychotic features (HCC); PTSD (post-traumatic stress disorder) ; Insomnia, unspecified type; Sleep apnea, unspecified type 02/24/2025 Bamboo flowsheet [facility] [address] [facility] [address] [place] [address] Karime Dias KANG-BC 02/24/2025 Travel 02/21/2025 Abstract [facility] [address] [place] [address] Pascale Arana NP 02/20/2025 Refill [facility] [address] [place] [address] Pascale Arana NP Psychophysiological insomnia 02/19/2025 Clinisync Result Encounter [facility] External Department Unsolicited Provider, Generic External Data 02/18/2025 Abstract [facility] [address] [place] [address] Pascale Arana NP 02/17/2025 Telephone [facility] [address] [place] [address] Pascale Arana NP Error (VOID this visit) 02/11/2025 Refill [facility] [address] [place] [address] Pascale Arana NP UTI (urinary tract infection), uncomplicated; Class 1 obesity due to excess calories without serious comorbidity in adult, unspecified BMI; BMI 32.0-32.9,adult 02/06/2025 Refill [facility] [address] [place] [address] Pascale Arana NP URTI (acute upper respiratory infection); Non-recurrent acute suppurative otitis media of both ears without spontaneous rupture of tympanic membranes 02/05/2025 Clinisync Result Encounter [facility] External Department Unsolicited Provider, Generic External Data 02/05/2025 Clinisync Result Encounter [facility] External Department Unsolicited Provider, Generic External Data 02/01/2025 Refill [facility] [address] [place] [address] Pascael Arana NP Bipolar disorder with severe depression (HCC) 01/22/2025 9:00 AM EDT Office Visit [facility] [address] [facility] [address] [place] [address] Karime Dias, [facility] JESSIKA (generalized anxiety disorder) ; Severe episode of recurrent major depressive disorder, without psychotic features (HCC); PTSD (post-traumatic stress disorder) ; Insomnia, unspecified type; Sleep apnea, unspecified type; Encounter for drug screening; Bipolar disorder with severe depression (HCC) 01/22/2025 Telephone [facility] [address] [place] [address] Pascale Arana NP 01/22/2025 Orders Only [facility] [address] [facility] [address] [place] [address] Karime Dias PMHNP-BC 01/22/2025 Bamboo flowsheet [facility] [address] [facility] [address] [place] [phone] Karime Dias, PMHNP- 01/22/2025 Travel 01/20/2025 Abstract [facility] [address] [place] [address] Pascale Arana NP 01/15/2025 Telephone [facility] [address] [place] [address] Pascale Arana NP 01/14/2025 Clinisync Result Encounter [facility] External Department Unsolicited Pascale Arana NP 01/14/2025 Refill [facility] [address] [place] [address] Pascale Arana NP URTI (acute upper respiratory infection); Non-recurrent acute suppurative otitis media of both ears without spontaneous rupture of tympanic membranes 01/08/2025 Telephone [facility] [address] [place] [address] Pascale Arana NP 01/07/2025 Orders Only [facility] [address] [place] [address] Pascale Arana NP B12 deficiency (Primary Dx); Iron deficiency anemia secondary to inadequate dietary iron intake 01/07/2025 Telephone [facility] [address] [place] [address] Pascale Arana NP Vaginitis/Bacterial Vaginosis 01/06/2025 4:30 PM EDT Office Visit [facility] [address] [place] [address] Pascale Arana NP Bipolar disorder with severe depression (HCC) (Primary Dx); Gastroesophageal reflux disease, unspecified whether esophagitis present; Class 1 obesity due to excess calories without serious comorbidity with body mass index (BMI) of 32.0 to 32.9 in adult; Cigarette nicotine dependence without complication; Stress; Fibromyalgia; Psychophysiological insomnia 01/06/2025 Abstract [facility] [address] [place] [address] Pascale Arana, LICENSED VOCATIONAL NURSE 01/06/2025 Telephone [facility] [address] [place] [address] Pascale Arana, LICENSED VOCATIONAL NURSE 01/06/2025 Abstract [facility] [address] [place] [address] Pascale Arana, LICENSED VOCATIONAL NURSE 01/06/2025 Bamboo flowsheet [facility] [address] [place] [address] Pascale Arana, LICENSED VOCATIONAL NURSE 12/18/2024 Refill [facility] [address] [place] [address] Pascale Arana, LICENSED VOCATIONAL NURSE URTI (acute upper respiratory infection); Non-recurrent acute [...] Recorded Patient Health Questionnaire-2 Score 5 01/22/2025 [facility] - Occupational Stress [...] PM EDT Social Work [facility] [place] [facility] [address] [place] [address] [place] [phone] GrantSanthoshRohanEH 04/03/2025 9:00 AM EDT Telemedicine [facility] [address] [place] [address] [place] [address] Karime Dias, PMHNP- [address] [place] [address] [place] [address] 04/30/2025 4:30 PM EDT Office Visit [facility] [address] [place] [address] Pascale Arana, LICENSED VOCATIONAL NURSE [address] [place] [address] Health Maintenance Due Date Last Done Comments [...] SEGMENTAL BLOOD PRESSURE 02/26/2025 3:34 PM EDT XR FOOT LT MIN 3V 02/19/2025 3:0 [...] Recently Relevant to Health Maintenance Results * SEGMENTAL BLOOD PRESSURE (02/26/2025 3:34 PM EDT) Anatomical Region Laterality Modality Radiographic Maeve ging 02/26/2025 3:34 PM EDT Narrative 02/27/2025 9:07 [place] [address] Cardiology Report Signed Patient: TALIA RUTHERFORD MR#: [id number] : 1970 Acct:[id number] Age/Sex: 54 / F ADM Date: 02/26/25 Loc: CARD Attending Dr: Michael LAZAR Ordering Physician: Michael Escobedo Date of Service: 02/26/25 Procedure(s): CA segmental UE or LE PONCE Accession Number(s): [id number] cc: Pascale Arana NP; Michael Escobedo The [facility] Test Date: 2025-02-26 Pat Name: TALIA RUTHERFORD Department: Room: - Gender: Female Conservation Educator: Cari Nichole : 1970 Requested By: Michael Escobedo Order Number: [id number] Reading MD: SCOTT PARKINSON M.D. Interpretive Statements [...] 02/27/25 0907 02/27/25 0907 DD/ 1534 TD/TT: Flooring Grader: Procedure Note Radiology, Radiologist, MD - 02/27/2025 [place] [address] Cardiology Report Signed Patient: TALIA RUTHERFORD DMR#: [id number] : 1970Acct:[id number] Age/Sex: 54 / FADM Date: 02/26/25 Loc: CARD Attending Dr: Michael LAZAR Ordering Physician: Michael Escobedo Date of Service: 02/26/25 Procedure(s): CA segmental UE or LE PONCE Accession Number(s): [id number] cc: Pascale Arana NP; Michael Escobedo [facility] Test Date: 2025-02-26 Pat Name: TALIA RUTHERFORD Department: Room: - Gender: Female Conservation Educator: Cari Nichole : 1970 Requested By: Michael Escobedo Order Number: [id number] Garth MD: SCOTT PARKINSON M.D. Interpretive Statements [...] M.D. Dictated By: SCOTT PARKINSON Signed By:02/27/25 0902/27/25 09 DD/ 1534 TD/TT: Flooring Grader: Generic External Data Provider IMG XR PROCEDURES Final Result * XR FOOT LT MIN 3V (02/19/2025 3:03 PM EDT) Anatomical Region Laterality Modality Other 02/19/2025 3:0 3 PM EDT Narrative 02/19/2025 3:06 PM EDT The [address] [address] XRay Report Signed Patient: TALIA RUTHERFORD MR#: [id number] : 1970 Acct:[id number] Age/Sex: 54 / F ADM Date: 02/19/25 Loc: RAD Attending Dr: Michael LAZAR Ordering Physician: Michael Escobedo Date of Service: 02/19/25 Procedure(s): XR foot LT min 3V Accession Number(s): [id number] cc: Pascale Arana NP; Michael Escobedo The [address] [address] Patient Name: TALIA RUTHERFORD MRN: [id number] date: 1970 Sex: F Assigned Patient Location: [facility] Current Patient Location: RAD Accession/Order Number: [id number] Exam Date: 02/19/2025 10:39 Report Date: 02/19/2025 [...] Jr., D.OConsuelo 02/19/2025 3:03 PM Dictation Location: [place] [address] Electronically authenticated by: [id number] Y Date: 02/19/2025 15:03 Dictated By: Merlin Massey M.D. Signed By: 02/19/25 1506 DD/ 1503 TD/TT: Flooring Grader: Procedure Note Radiology, Radiologist, MD - 02/19/[address] [address] XRay Report Signed Patient: TALIA RUTHERFORD DMR#: [id number] : 1970Acct:[id number] Age/Sex: 54 / FADM Date: 02/19/25 Loc: [facility] Attending Dr: Michael LAZAR Ordering Physician: Michael Escobedo Date of Service: 02/19/25 Procedure(s): XR foot LT min 3V Accession Number(s): [id number] cc: Pascale Arana NP; Michael Escobedo The [address] [address] Patient Name: TALIA RUTHERFORD MRN: [id number] date: 1970 Sex: F Assigned Patient Location: [facility] Current Patient Location: RAD Accession/Order Number: [id number] Exam Date: 02/19/2025 10:39 Report Date: 02/19/2025 [...] PLANTAR SPURRING. Impression dictated by: Merlin Massey Jr. DConsueloOConsuelo 02/19/2025 3:03 PM Dictation Location: [place] [address] Electronically authenticated by: [id number] Y Date: 5:03 Dictated By: Merlin Massey M.D. Signed By:02/19/25 1506 DD/ 1503 TD/TT: Flooring Grader: Generic External Data Provider [email or web address] Final Result * MR LUMBAR SPINE WO CON (02/05/2025 2:18 PM EDT) Anatomical Region Laterality Modality Other 02/05/2025 2:18 PM EDT Narrative 02/05/2025 2:21 PM EDT The [place] [id number] Magnetic Resonance Report Signed Patient: TALIA RUTHERFORD MR#: [id number] : 1970 Acct:[id number] Age/Sex: 54 / F ADM Date: 02/04/25 Loc: MRI Attending Dr: Bandar Eden M.D. Ordering Physician: Bandar Eden M.D. Date of Service: 02/04/25 Procedure(s): MR lumbar spine wo con Accession Number(s): [id number] cc: Pascale Arana NP; Bandar Eden M.D. [place] [address] Patient Name: TALIA RUTHERFORD MRN: [id number] date: 1970 Sex: F Assigned Patient Location: MRI Current Patient Location: Accession/Order Number: [id number] Exam Date: 02/05/2025 12:16 Report Date: 02/05/2025 [...] Circumferential disc bulge with moderate facet arthropathy. Pang-ls-wvbptchk right-sided and mild left-sided neural foraminal narrowing . 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 Impression dictated by: Mushtaq Antony M.D. 02/05/2025 2:18 PM Dictation Location: [place] [address] Electronically authenticated by: [id number] Y Date: 02/05/2025 14:18 Dictated By: Mushtaq Antony M.D. Signed By: 02/05/25 1421 DD/ 1418 TD/TT: Flooring Grader: Procedure Note Radiology, Radiologist, - 02/05/2025 [place] [address] Magnetic Resonance Report Signed Patient: TALIA RUTHERFORD DMR#: [id number] : 1970Acct:[id number] Age/Sex: 54 / FADM Date: 02/04/25 Loc: MRI Attending Dr: Bandar Eden M.D. Ordering Physician: Bandar Eden M.D. Date of Service: 02/04/25 Procedure(s): MR lumbar spine wo con Accession Number(s): [id number] cc: Pascale Arana LICENSED VOCATIONAL NURSE; Bandar Eden M.D. The [place] [address] Patient Name: TALIA RUTHERFORD MRN: [id number] date: 1970 Sex: F Assigned Patient Location: MRI Current Patient Location: Accession/Order Number: [id number] Exam Date: 02/05/2025 12:16 Report Date: 02/05/2025 [...] Circumferential disc bulge with moderate facet arthropathy. Jfdo-cp-jraeltqw right-sided and mild left-sided neural foraminalnarrowing . 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 Impression dictated by: Mushtaq Antony M.D. 02/05/2025 2:18 PM Dictation Location: [place] [address] Electronically authenticated by: [id number] Y Date: 4:18 Dictated By: Mushtaq Antony M.D. Signed By:02/05/25 1421 DD/ 1418 TD/TT: Flooring Grader: Generic External Data Provider [facility] Final Result * MR cervical spine wo contrast (02/05/2025 12:16 PM EDT) Anatomical Region Laterality Modality Spine, C-spine Magnetic Resonan ce 02/05/2025 12:1 6 PM EDT Narrative 02/05/2025 12:18 [place] [address] Magnetic Resonance Report Signed Patient: TALIA RUTHERFORD MR#: [id number] : 1970 Acct:[id number] Age/Sex: 54 / F ADM Date: 02/04/25 Loc: MRI Attending Dr: Bandar Eden M.D. Ordering Physician: Bandar Eden M.D. Date of Service: 02/04/25 Procedure(s): MR cervical spine wo con Accession Number(s): [id number] cc: Pascale Arana LICENSED VOCATIONAL NURSE; Bandar Eden M.D. The [address] [address] Patient Name: TALIA RUTHERFORD MRN: [id number] date: 1970 Sex: F Assigned Patient Location: MRI Current Patient Location: Accession/Order Number: [id number] Exam Date: 02/05/2025 12:10 Report Date: 02/05/2025 [...] Uncovertebral spurring greatest right. Moderate right and btkp-tg-jotpdkpe left-sided neural foraminal narrowing. Mild canal narrowing. C5-6: Broad-based disc bulge with uncovertebral spurring, greatest left. Moderate right-sided moderate to severe left-sided neural foraminal narrowing. Mild central canal stenosis. C6-C7: Broad-based disc osteophyte complex with uncovertebral spurring. Opnk-fw-nbpclzhf right moderate severe left neural foraminal narrowing. Lbxu-yp-tcioodhi canal narrowing. C7-T1: Minimal vertebral hypertrophy. Moderate facet arthropathy. Canal and patent. Mild foraminal narrowing. MR/MR cervical spine wo con IMPRESSION: Overall multilevel degenerative changes with up to xvrg-bk-opaebosu central canal narrowing. Multilevel foraminal encroachment as noted above. Impression dictated by: Mushtaq Antony M.D. 02/05/2025 12:16 PM Dictation Location: [place] [address] Electronically authenticated by: [id number] Y Date: 02/05/2025 12:16 Dictated By: Mushtaq Antony M.D. Signed By: 02/05/25 1218 DD/ 1216 TD/TT: Flooring Grader: Procedure Note Radiology, Radiologist, - 02/05/2025 [place] [address] Magnetic Resonance Report Signed Patient: TALIA RUTHERFORD DMR#: [id number] : 1970Acct:[id number] Age/Sex: 54 / FADM Date: 02/04/25 Loc: MRI Attending Dr: Bandar Eden M.D. Ordering Physician: Bandar Eden M.D. Date of Service: 02/04/25 Procedure(s): MR cervical spine wo con Accession Number(s): [id number] cc: Pascale Arana LICENSED VOCATIONAL NURSE; Bandar Eden M.D. The [place] [address] Patient Name: TALIA RUTHERFORD MRN: [id number] date: 1970 Sex: F Assigned Patient Location: MRI Current Patient Location: Accession/Order Number: [id number] Exam Date: 02/05/2025 12:10 Report Date: 02/05/2025 [...] Uncovertebral spurring greatest right. Moderate right and uhyp-vz-tnqpjulm left-sided neural foraminal narrowing. Mild canal narrowing. C5-6: Broad-based disc bulge with uncovertebral spurring, greatest left. Moderate right-sided moderate to severe left-sided neural foraminalnarrowing. Mild central canal stenosis. C6-C7: Broad-based disc osteophyte complex with uncovertebral spurring. Edvi-pg-ergszhps right moderate severe left neural foraminal narrowing. Lybr-us-hkcxufdp canal narrowing. C7-T1: Minimal vertebral hypertrophy. Moderate facet arthropathy. [place]aland patent. Mild foraminal narrowing. MR/MR cervical spine wo con IMPRESSION: Overall multilevel degenerative changes with up to uhdu-tg-demywdosnjwuiqf canal narrowing. Multilevel foraminal encroachment as noted above. Impression dictated by: Mushtaq Antony M.D. 02/05/2025 12:16 PM Dictation Location: [place] [address] Electronically authenticated by: [id number] Y Date: 2:16 Dictated By: Mushtaq Antony M.D. Signed By:02/05/25 1218 DD/ 1216 TD/TT: Flooring Grader: us Generic External Data Provider IMG MRI PROCEDURE S Final Result * (ABNORMAL) VITAMIN B12 (01/14/2025 12:49 PM EDT) VITAMIN B12 >2000(A) 232 - 1245 pg/mL TB Comment: Performed at: [address] [id number] Tank Crewmember: Hector Franco PhD, Phone: [phone] 01/14/2025 12:4 9 PM EDT 01/14/2025 12:50 PM EDT Narrative CLIN[facility] - 01/15/2025 4:07 AM EDT us Pascale Arana LICENSED VOCATIONAL NURSE LAB BLOOD ORDERABLES Final Resu lt [facility] * TRANSFERRIN (01/14/2025 12:49 PM EDT) TRANSFERRIN 296 192 - 364 mg/dL TBH Comment: Performed at: - [address] [id number] Tank Crewmember: Hector Franco PhD, Phone: [phone] 01/14/2025 12:4 9 PM EDT 01/14/2025 12:50 PM EDT Narrative CLINISYNC - 01/15/2025 5:07 AM EDT Pascale Arana NP LAB BLOOD ORDERABLES Final Resu lt [facility] TB * METRO IRON AND TIBC (01/14/2025 12:49 PM EDT) Pathologist [facility] TB IRON 54.0 50.0 - 170.0 ug/dL TBH TBH TOTAL IRON BINDING CAPACITY 387.0 250.0 - 450.0 ug/dL TBH TBH PERCENT IRON SATURATION 14.0 % [facility]H 01/14/2025 12:4 9 PM EDT 01/14/2025 12:50 PM EDT Narrative CLIN[facility]NC - 01/14/2025 1:50 PM EDT Pascale Arana NP CLIN[facility]NC Final Result Performing Organization Address [facility]/ZIP Co de Phone Number [facility] TBH * [facility] FERRITIN (01/14/2025 12:49 PM EDT) Pathologist [facility] FERRITIN 10.0 8.0 - 252.0 ng/mL TBH 01/14/2025 12:4 9 PM EDT 01/14/2025 12:50 PM EDT Narrative CLIN[facility]NC - 01/14/2025 2:05 PM EDT Pascale Arana NP [facility] Final Result Performing Organization Address City/[facility]/ZIP Co de Phone Number [facility] * (ABNORMAL) ALL CBC WITH AUTO DIFF (01/14/2025 12:49 PM EDT) [facility] TB WBC 6.1 4.0 - 11.0 [...] EDT Narrative 10/23/2024 3:55 [place] [address] Mammography Report Signed Patient: TALIA RUTHERFORD MR#: [id number] : 1970 Acct:[id number] Age/Sex: 54 / F ADM Date: 10/23/24 Loc: MAMMO Attending Dr: Pascale Arana NP Ordering Physician: Pascale Arana NP Results: Date of Service: 10/23/24 Follow Up: Procedure(s): MM tomosynthesis screening BI Accession Number(s): [id number] cc: Pascale Arana NP Patient Name: TALIA RUTHERFORD MR#: [id number] : 1970 Exam Date: 10/23/2024 Ordering Doctor: [...] at age 51. LOCATION: [facility] BREAST COMPOSITION: There are scattered areas [...] Signed By: 10/23/24 1555 DD/ 54 TD/TT: Flooring Grader: Procedure Note Radiology, Radiologist, MD - 10/23/2024 [place] [address] Mammography Report Signed Patient: TALIA RUTHERFORD DMR#: [id number] : 1970Acct:[id number] Age/Sex: 54 / FADM Date: 10/23/24 Loc: MAMMO Attending Dr: Pascale Arana LICENSED VOCATIONAL NURSE Ordering Physician: Pascale Arana NPResults: Date of Service: 10/23/24Follow Up: Procedure(s): MM tomosynthesis screening BI Accession Number(s): [id number] cc: Pascale Arana NP Patient Name: TALIA RUTHERFORD MR#: [id number] : 1970 Exam Date: 10/23/2024 Ordering Doctor: JASON Arana GROUP BILLING COORDINATOR RADIOLOGY REPORT PROCEDURE: MM TOMOSYNTHESIS SCREENING BI COMPARISON: None. INDICATIONS: Screening Calculator Name NCI Breast Cancer Risk Assessment Tool 5 Year Breast Cancer Risk 0.80% Lifetime Breast Cancer Risk 6.20% Personal Breast Cancer No Personal Ovarian Cancer No Treatments None Family Cancers Grandmother-maternal with breast cancer at age 50; Aunt-maternal with breast cancer at age 50. LOCATION: [facility] BREAST COMPOSITION: There are scattered areas [...] Massey M.D. Signed By:10/23/245 DD/ 54 TD/TT: Flooring Grader: Pascale Arana NP [facility] Final Result from Last 3 Months or Most Recently Relevant to Health Maintenance Additional Health Concerns Active Problems Noted Date Diagnosed Date Patient on antidepressant monitoring plan 2023 Insurance [employer] Care Teams Caustic Strength Inspector Relationship Specialty Start Date End Date Molina De Anda MD [address] [place] [address] PCP - General Family Medicine 02/21/24 Valerie Groves NP [address] [place] [address] Nurse Practitioner Family Medicine 02/21/24 Karime Dias PMHNP- [address] [place] [address] [place] [address] Nurse Practitioner Behavioral Health 01/22/25
--- OUTSIDE RECORDS SUMMARY | 2025-03-05 17:01 | XMS_ITS | Encounter Summary ---
Author Organization [facility] Address [address] [place] [address] Care Team Providers Care Director [place] Sales Name Role Phone Molina De Anda MD Primary Care Provider [phone] Valerie Groves ORTHOPEDIC TECH Unavailable [phone] Karime Dias PMHNP- Unavailable + [phone] Encounter Details Date Type Department Care Team [...] often do you attend chur ch or mormonism services? Never 08/07/2023 Do you [...] Recorded Patient Health Questionnaire-2 Score 5 01/22/2025 [facility] - Occupational Stress Questionnaire Answer Date Recorded [...] [address] [place] [place] [address] Rohan Burns LPC 04/03/2025 9:00 AM EDT Telemedicine [facility] [address] [place] [address] Karime Dias [facility] [address] [place] [address] [place] [address] 04/30/2025 4:30 PM EDT Office Visit [facility] [address] [place] [address] Pascale Arana NP [address] [place] [address] documented as of this encounter Goals Goal [...] EDT Narrative 02/19/2025 3:06 [place] [address] XRay Report Signed Patient: TALIA RUTHERFORD MR#: [id number] : 1970 Acct:[id number] Age/Sex: 54 / F ADM Date: 02/19/25 Loc: RAD Attending Dr: Michael LAZAR Ordering Physician: Michael Escobedo Date of Service: 02/19/25 Procedure(s): XR foot LT min 3V Accession Number(s): [id number] cc: Pascale Arana ORTHOPEDIC TECH; Michael Escobedo [place] [id number] Patient Name: TALIA RUTHERFORD MRN: [id number] date: 1970 Sex: F Assigned Patient Location: [facility] Current Patient Location: RAD Accession/Order Number: [id number] Exam Date: 02/19/2025 10:39 Report Date: 02/19/2025 [...] Jr., D.O. 02/19/2025 3:03 PM Dictation Location: [place] [address] Electronically authenticated by: [id number] Y Date: 02/19/2025 15:03 Dictated By: Merlin Massey M.D. Signed By: 02/19/25 1506 DD/ 1503 TD/TT: Supervisor Electronics Processing: Procedure Note Radiology, Radiologist, MD - 02/19/2025 [place] [address] XRay Report Signed Patient: TALIA RUTHERFORD DMR#: [id number] : 1970Acct:[id number] Age/Sex: 54 / FADM Date: 02/19/25 Loc: [facility] Attending Dr: Michael LAZAR Ordering Physician: Michael Escobedo Date of Service: 02/19/25 Procedure(s): XR foot LT min 3V Accession Number(s): [id number] cc: Pascale Arana ORTHOPEDIC TECH; Michael Escobedo [place] [id number] Patient Name: TALIA RUTHERFORD MRN: [id number] date: 1970 Sex: F Assigned Patient Location: [facility] Current Patient Location: [facility] Accession/Order Number: [id number] Exam Date: 02/19/2025 10:39 Report Date: 02/19/2025 [...] Jr., D.O. 02/19/2025 3:03 PM Dictation Location: [place] [address] Electronically authenticated by: [id number] Y Date: 5:03 Dictated By: Merlin Massey M.D. Signed By:02/19/25 1506 DD/ 1503 TD/TT: Supervisor Electronics Processing: us Generic External Data Provider [facility] Final Result documented in this encounter Visit Diagnoses Not on filedocumented in this encounter Additional Health Concerns Active Problems Noted Date Diagnosed Date Patient on antidepressant monitoring plan 2023 Assessment Noted Time PHQ-9 Depression Total Score: 21 025 9:29 AM EDT documented as of this encounter Care Teams Director [place] Sales Relationship Specialty Start Date End Date Molina De Anda MD [address] [place] [address] PCP - General Family Medicine 02/21/24 Valerie Groves NP [address] [place] [address] Nurse Practitioner Family Medicine 02/21/24 [facility] [address] [place] [address] [place] [address] Nurse Practitioner Behavioral Health 01/22/25 documented as of this encounter
--- OUTSIDE RECORDS SUMMARY | 2025-03-05 17:01 | XMS_ITS | Encounter Summary ---
Author Organization [facility] Address [address] [place] [address] Care Team Providers Care Seamer Panty Hose Name Role Phone Shaikh NITHIN Main Primary Care Provider [phone] Shaikh NITHIN Main Primary Care Provider [phone] Molina De Anda MD Primary Care Provider [phone] Valerie Groves COLLECTIONS ANALYST Unavailable [phone] Karime Dias [facility]- Unavailable Encounter Details Date Type Department Care Team (Late st Contact Info) Description 08/07/2023 Orders Only [facility] [address] [place] [address] Shaikh Main MD [address] [place] [address] Social History Tobacco Use Types Packs/Day Years [...] How often do you attend chur or roman catholic services? Never 08/07/2023 Do [...] Recorded Patient Health Questionnaire-2 Score 6 08/03/2023 [facility] of Occupat ional Health - Occupational Stress [...] [address] [place] [place] [address] Rohan Burns LPC 04/03/2025 9:00 AM EDT Telemedicine [facility] [address] [place] [address] Karime Dias [facility] [address] [place] [place] [address] 04/30/2025 4:30 PM EDT Office Visit [facility] [address] [place] [address] Pascale Arana, MARY JO [address] [place] [address] documented as of this encounter Goals Goal [...] documented as of this encounter Care Teams Seamer Panty Hose Relationship Specialty Start Date End Date Shaikh Main MD PCP - General Internal Medicine 04/20/23 01/07/24 Shaikh Main MD [address] [place] [address] PCP - General Internal Medicine 01/08/24 02/20/24 Molina De Anda MD [address] [place] [address] PCP - General Family Medicine 02/21/24 Valerie Groves NP [address] [place] [address] Nurse Practitioner Family Medicine 02/21/24 Karime Dias PMHNP- [address] [place] [address] [place] [address] Nurse Practitioner Behavioral Health 01/22/25 documented as of this encounter
--- OUTSIDE RECORDS SUMMARY | 2025-03-05 17:01 | XMS_ITS | Encounter Summary ---
Author Organization [facility] Address [address] [place] [address] Care Team Providers Care Repairer Shoe Sticks Name Role Phone Molina De Anda MD Primary Care Provider [phone] Valerie Groves NP Unavailable [phone] Karime Dias [facility]- Unavailable + [phone] Reason for Visit * Reason Onset Date Comments Med Refill Letter for School/Work 02/01/2025 Encounter Details Date Type Department Care Team (Late st Contact Info) Description 02/01/2025 Refill [facility] [address] [place] [address] Pascale Arana NP [address] [place] [address] Bipolar disorder with severe depression (HCC) Social [...] Recorded Patient Health Questionnaire-2 Score 5 01/22/2025 [facility] of Occupat ional Health - Occupational Stress [...] [address] [place] [place] [address] Rohan Burns LPC 04/03/2025 9:00 AM EDT Telemedicine [facility] [address] [place] [address] Karime Dias, [facility] [address] [place] [place] [address] 04/30/2025 4:30 PM EDT Office Visit [facility] [address] [place] [address] Pascale Arana NP [address] [place] [address] documented as of this encounter Goals Goal [...] documented as of this encounter Care Teams Repairer Shoe Sticks Relationship Specialty Start Date End Date Molina De Anda MD [address] [place] [address] PCP - General Family Medicine 02/21/24 Valerie Groves NP [address] [place] [address] Nurse Practitioner Family Medicine 02/21/24 Karime Dias, [facility] [address] [facility] [address] [place] [address] Nurse Practitioner Behavioral Health 01/22/25 documented as of this encounter
--- OUTSIDE RECORDS SUMMARY | 2025-03-05 17:01 | XMS_ITS | Encounter Summary ---
Author Organization [facility] Address [address] [place] [address] Care Team Providers Care Shearing Machine Tender Name Role Phone Molina De Anda MD Primary Care Provider [phone] Valerie Groves LINK ASSEMBLER Unavailable [phone] Karime Dias PMHNP- Unavailable [phone] Encounter Details Date Type Department Care Team (Late st Contact Info) Description 02/29/2024 Orders Only [facility] [address] [place] [address] Valerie Groves NP Social History Tobacco Use [...] Recorded Patient Health Questionnaire-2 Score 0 02/28/2024 [facility] Questionnaire Answer Date [...] [facility] [address] [place] [address] Rohan Burns LPC 04/03/2025 9:00 AM EDT Telemedicine [facility] [address] [place] [address] Karime Dias, PMHNP- [address] [place] [address] [place] [address] 04/30/2025 4:30 PM EDT Office Visit [facility] [address] [place] [address] Pascale Arana, MARY JO [address] [place] [address] documented as of this encounter Goals Goal [...] Laterality Modality Radiographic Maeve ging Valerie Groves LINK ASSEMBLER IMG XR PROCEDURES Final Result documented in this encounter Visit Diagnoses Not on filedocumented in this encounter Additional Health Concerns Active Problems Noted Date Diagnosed Date Patient on antidepressant monitoring plan 2023 Assessment Noted Time PHQ-9 Depression Total Score: 23 024 4:27 PM EST documented as of this encounter Care Teams Shearing Machine Tender Relationship Specialty Start Date End Date Molina De Anda MD [address] [place] [address] PCP - General Family Medicine 02/21/24 Valerie Groves NP [address] [place] [address] Nurse Practitioner Family Medicine 02/21/24 [facility] Dias [facility] [address] [place] [address] [place] [address] Nurse Practitioner Behavioral Health 01/22/25 documented as of this encounter
--- OUTSIDE RECORDS SUMMARY | 2025-03-05 17:01 | XMS_ITS | Encounter Summary ---
Author Organization [facility] Address [address] [place] [address] Care Team Providers Care Pit Crane Operator Name Role Phone Shaikh NITHIN Main Primary Care Provider [phone] Shaikh NITHIN Main Primary Care Provider [phone] Molina De Anda MD Primary Care Provider [phone] Valerie Groves COLD ROLLER Unavailable [phone] Karime Dias [facility]- Unavailable Encounter Details Date Type Department Care Team (Late st Contact Info) Description 08/03/2023 Orders Only [facility] [address] [place] [address] Shaikh Main MD [address] [place] [address] Social History Tobacco Use Types Packs/Day Years [...] Recorded Patient Health Questionnaire-2 Score 6 08/03/2023 [facility] [place] of Occupat ional Health - Occupational Stress [...] [facility] [address] [place] [address] Rohan Burns LPC 04/03/2025 9:00 AM EDT Telemedicine [facility] [address] [place] [address] Karime Dias [facility]- [address] [facility] [address] [place] [address] 04/30/2025 4:30 PM EDT Office Visit [facility] [address] [place] [address] Pascale Arana NP [address] [place] [address] documented as of this encounter Goals Goal [...] documented as of this encounter Care Teams Pit Crane Operator Relationship Specialty Start Date End Date Shaikh Main MD PCP - General Internal Medicine 04/20/23 01/07/24 Shaikh Main MD [address] [place] [address] PCP - General Internal Medicine 01/08/24 02/20/24 Molina De Anda MD [address] [place] [address] PCP - General Family Medicine 02/21/24 Valerie Groves NP [address] [place] [address] Nurse Practitioner Family Medicine 02/21/24 Karime Dias, [facility] [address] [address] Nurse Practitioner Behavioral Health 01/22/25 documented as of this encounter
--- OUTSIDE RECORDS SUMMARY | 2025-03-05 17:01 | XMS_ITS | Encounter Summary ---
Author Organization [facility] Address [address] [place] [address] Care Team Providers Care Cattle Dehorner Name Role Phone Molina De Anda MD Primary Care Provider [phone] Valerie Groves COUNTY AUDITOR Unavailable [phone] Kar[facility] Di[facility] [phone] Encounter Details Date Type Department Care Team (Late st Contact Info) Description 01/22/2025 [facility] 160 [place] [address] Karime Dias [employer]- [address] [facility] [address] [place] [address] Social History Tobacco Use Types Packs/Day [...] How often do you attend chur or samaritan services? Never 08/07/2023 Do you belong to any clubs o r organizations such as yazdanism groups, unions, fraternal or athletic groups, or [...] 01/22/2025 [facility] of Occupat ionnh Health - Occupational Stress [...] Health [address] [place] [address] [place] [address] Rohan Burns LPC 04/03/2025 9:00 AM EDT Telemedicine [facility] [address] [place] [address] Karime Dias PMHNP-BC [address] [place] [address] [place] [address] 04/30/2025 4:30 PM EDT Office Visit [facility] [address] [place] [address] Pascale Arana NP [address] [place] [address] documented as of this encounter Goals Goal [...] documented as of this encounter Care Teams Cattle Dehorner Relationship Specialty Start Date End Date Molina De Anda MD [address] [place] [address] PCP - General Family Medicine 02/21/24 Valerie Groves NP [address] [place] [address] Nurse Practitioner Family Medicine 02/21/24 [facility] [address] [place] [address] [place] [address] Nurse Practitioner Behavioral Health 01/22/25 documented as of this encounter
--- OUTSIDE RECORDS SUMMARY | 2025-03-05 17:01 | XMS_ITS | Encounter Summary ---
Author Organization [facility] Address [address] [place] [address] Care Team Providers Care Rail Splitter Name Role Phone Molina De Anda MD Primary Care Provider [phone] Valerie Groves BANK OPERATIONS OFFICER Unavailable [phone] Karime Dias [facility]- Unavailable + [phone] Reason for Visit * Reason Comments Med Refill Encounter Details Date Type Department Care Team (Late st Contact Info) Description 02/20/2025 Refill [facility] [address] [place] [address] Pascale Arana NP [address] [place] [address] Psychophysiological insomnia Social History Tobacco Use Types [...] 5 01/22/2025 [facility] of Occupat ional Health [...] [address] [facility] 160 [place] [address] Rohan Burns LPC 04/03/2025 9:00 AM EDT Telemedicine [facility] [address] [place] [address] Karime Dias PMHNP- [address] [facility] 160 [place] [address] 04/30/2025 4:30 PM EDT Office Visit [facility] [address] [place] [address] Pascale Arana, MARY JO [address] [place] [address] documented as of this encounter Goals Goal [...] documented as of this encounter Care Teams Rail Splitter Relationship Specialty Start Date End Date Molina De Anda MD [address] [place] [address] PCP - General Family Medicine 02/21/24 Valerie Groves NP [address] [place] [address] Nurse Practitioner Family Medicine 02/21/24 [facility]as [facility] [address] [facility] [place] [address] Nurse Practitioner Behavioral Health 01/22/25 documented as of this encounter
--- OUTSIDE RECORDS SUMMARY | 2025-03-05 17:01 | XMS_ITS | Encounter Summary ---
Author Organization [facility] Address [address] [place] [address] Care Team Providers Care Flexboard Operator Name Role Phone Molina De Anda MD Primary Care Provider [phone] Valerie Groves NEGATIVE TURNER APPRENTICE Unavailable [phone] [facility] + [phone] Encounter Details Date Type Department Care Team (Late st Contact Info) Description 01/20/2025 [facility] [address] [place] [address] Pascale Arana NP [address] [place] [address] Social History Tobacco Use Types Packs/Day Years [...] Questionnaire-2 Score 5 01/22/2025 [facility] of Occupat ional Health - [...] Health [address] [place] [address] [place] [address] Rohan Burns LPC 04/03/2025 9:00 AM EDT Telemedicine [facility] [address] [place] [address] Karime Dias PMHNP-BC [address] [place] [address] [place] [address] 04/30/2025 4:30 PM EDT Office Visit [facility] [address] [place] [address] Pascale Arana NP [address] [place] [address] documented as of this encounter Goals Goal [...] documented as of this encounter Care Teams Flexboard Operator Relationship Specialty Start Date End Date Molina De Anda MD [address] [place] [address] PCP - General Family Medicine 02/21/24 Valerie Groves NP [address] [place] [address] Nurse Practitioner Family Medicine 02/21/24 Karime Dias [facility] [address] [facility] 160 [place] [address] Nurse Practitioner Behavioral Health 01/22/25 documented as of this encounter
--- OUTSIDE RECORDS SUMMARY | 2025-03-05 17:01 | XMS_ITS | Patient Health Record ---
Author Organization [facility] in [place] Address [address] [place] [address] Care Team Providers Care Delivery Driver/Customer Service Name Role Phone None, Unknown or Primary Care Provider Unavailab Tawana Lee [facility] [phone] Allergies Allergen (clinical drug ingredient) Drug/Non Drug Allergy documented on EMR Reaction Allergy Type Onset Date Status Penicillin rash Drug Allergy Active Results Component Value Reference Range Notes XR foot LT min 3V (Not yet r eviewed by provider) Interpretation: Performing Lab: Notes/Report: Source Facility: [place] [address] XRay Report Signed Patient: KALYN RUTHERFORD MR#: [id number] : 1970 Acct:[id number] Age/Sex: 54 / F ADM Date: 09/04/24 Loc: EC Attending Dr: Tawana Hoff D.P.M. Ordering Physician: Tawana Hoff D.P.M. Date of Service: 09/04/24 Procedure(s): XR foot LT min 3V Accession Number(s): [id number] cc: NASH LAMAR Peter D.P.M. [address] [place] [address] Patient Name: KALYN RUTHERFORD MRN: [id number] date: 1970 Sex: F Assigned Patient Location: EC Current Patient Location: Accession/Order Number: [id number] Exam Date: 09/04/2024 15:53 Report Date: 09/05/2024 [...] Signed By: 09/05/24 1019 DD/ 1016 TD/TT: Tram Inspector: [place] [address] XRay Report Signed Patient: MARTY RUTHERFORD MR#: [id number] : 1970 Acct:[id number] Age/Sex: 54 / F ADM Date: 09/04/24 Loc: EC Attending Dr: Tawana Hoff D.P.M. Ordering Physician: Tawana Hoff D.P.M. Date of Service: 09/04/24 Procedure(s): XR foot LT min 3V Accession Number(s): [id number] cc: PAUL LAMAR; Tawana Hoff D.P.M. [address] [place] [id number] Patient Name: KALYN RUTHERFORD MRN: [id number] date: 1970 Sex: F Assigned Patient Location: Current Patient Location: Accession/Order Numb er: [id number] Exam Date: 09/04/2024 15:53 Report Date: 09/05/2024 10:16 At the request of: TAWANA HOFF Procedure: XR foot LT min 3V PROCEDURE: XR foot LT min 3V HISTORY: LEFT FOOT PAIN COMPARISON: XR foot left 05/31/2022 . FINDINGS: BONES:Prior instrument mechanic al fusion of the second third [...] Signed By: 09/05/24 1019 DD/ 1016 TD/TT: Tram Inspector: CT FOOT LT WO CON (Not yet r eviewed by provider) Interpretation: Performing Lab: Notes/Report: Source Facility: [place] [address] CT Scan Report Signed Patient: KALYN RUTHERFORD MR#: [id number] : 1970 Acct:[id number] Age/Sex: 54 / F ADM Date: 09/09/24 Loc: CT Attending Dr: Tawana Hoff D.P.M. Ordering Physician: Tawana Hoff D.P.M. Date of Service: 09/09/24 Procedure(s): CT foot LT wo con Accession Number(s): [id number] cc: ANGEL LUIS LAMAR [place] [address] Patient Name: KALYN RUTHERFORD MRN: [id number] date: 1970 Sex: F Assigned Patient Location: CT Current Patient Location: CT Accession/Order Number: [id number] Exam Date: 09/09/2024 15:56 Report Date: 09/09/2024 [...] M.D. Signed By: 09/09/241741 DD/ 38 TD/TT: Tram Inspector: [place] [address] CT Scan Report Signed Patient: MARTY RUTHERFODR MR#: [id number] : 1970 Acct:[id number] Age/Sex: 54 / F ADM Date: 09/09/24 Loc: CT Attending Dr: Tawana Hoff D.P.M. Ordering Physician: Tawana Hoff D.P.M. Date of Service: 09/09/24 Procedure(s): CT foot LT wo con Accession Number(s): [id number] cc: ANGEL LUIS LAMAR [place] [address] Patient Name: KALYN RUTHERFORD MRN: [id number] date: 1970 Sex: F Assigned Patient Location: CT Current Patient Location: CT Accession/Order Numb er: [id number] Exam Date: 09/09/2024 15:56 Report Date: 09/09/2024 [...] M.D. Signed By: 09/09/241741 DD/ 38 TD/TT: Tram Inspector: Reason For Referral No Information Medications Medication [...] Problem Status W/U Status Risk Notes Problem [id number] Primary osteoarthritis , left ankle and foot (M19.072) Active confirmed Problem Gastroesophageal reflux disease (409460471) GERD (gastroesophag eal reflux disease) (K21.9) Active confirmed Problem Pain in left foot (331735289141384) Left foot pain (M79.672) Active confirmed Problem Anxiety with depression (F41.8) Active confirmed Vital Signs Heart Rate 85 /min 09/18/2024 Respiratory Rate 16 /min 09/18/2024 Oximetry 97 % 09/18/2024 Encounters Encounter Location Date Provider Diagnosis [facility] [address] [place] [address] [place] [address] 09/04/2024 Tawana Hoff [facility] [address] [place] [address] [place] [address] 09/04/2024 Tawana Hoff Pain due to internal orthopedic prosthetic devices, implants and grafts, initial encounter T84.84XA ; Primary osteoarthritis, left ankle and foot M19.072 and Left foot pain M79.672 [facility]) [address] [place] [address] [place] [address] 09/18/2024 Tawana Hoff Pseudarthrosis after fusion or [...] Coverage Start Date Coverage End Date [employer] [facility] [address] [place] [address] [id number] Kalyn Rutherford Self - patient is the insured Medical (General) History Medical History History ICD Code GERD (gastroesophageal reflux disease) K 21.9 Anxiety F41.9 Arthritis M19.90 Nicotine dependence F17.200 Bipolar depression F31.9 Overactive bladder N32.81 Peripheral arterial disease I73.9 Surgical History Surgery Date(Month/Year) cholecystectomy tubal ligation gastric bypass 08/2019 posterior colporrhaphy repair, enterocel e repair 02/15/2021
--- OUTSIDE RECORDS SUMMARY | 2025-03-05 17:01 | XMS_ITS | Encounter Summary ---
Author Organization [employer] Address [id number] [address] [place] [address] Care Team Providers Care Manager Payer Name Role Phone No Pcp, No Pcp Primary Care Provider Unavailpedro e Encounter Details Date Type Department Care Team (Late st Contact Info) Description 02/13/2023 Telephone [facility] [address] [place] [phone] Segun Keene DO [address] [place] [address] Social History Tobacco Use Types [...] office visit;just set up for colonsocopy at [facility] for anemis. I don't need to see he agian. Saw her today!!! * Telephone Encounter - Alberta Millan - 02/13/2023 11:36 AM EDT Talia called the office to try to reschedule her appointment, I informed her that Dr. Jassi fraga her set up for a colonoscopy at [facility]. Told Talia that our surgery schedulerwill call her back to schedule that with her. * Telephone Encounter - SUGEY Loyd - 02/13/2023 11:36 AM EDT I called Talia and scheduled colonoscopy at [facility] for 03/08/23. The patient is coming in tomorrow 02/14/23 to sign papers and go over bowel prep. I will send Dr. Keene a message to put in orders for this procedure and email everything over to Anh at the [facility]. documented in this encounter Plan of Treatment Upcoming Encounters Date Type Department Care Team (Late st Contact Info) Description 04/02/2025 3:00 PM EDT Office Visit [facility] [place] [address] [facility] [address] [address] [place] [address] Tania Asif MD [address] [place] [address] documented as of this encounter Visit Diagnoses Not on filedocumented in this encounter Care Teams Manager Payer Relationship Specialty Start Date End Date No Pcp[place] [address] PCP - General Family Medicine 11/21/18 documented as of this encounter
--- OUTSIDE RECORDS SUMMARY | 2025-03-05 17:07 | XMS_ITS | CCD ---
Author Organization [facility] Care Team Providers Care Investment Strategist Name Role Phone PHYSICIAN, DEFAULT Admitting Unavailable PHYSICIAN, DEFAULT Attending Unavailable TYLER, ROBERTO Primary Care Unavailable Kristin Quintana Unavailable KAJAL ESCOBEDO Admitting Unavailable MEET, KAJAL Attending Unavailable TYLER, DR VILLALOBOS Primary Care Unavailable ROMMEL, DR TAMIKO Dickens Consulting Unavailable MEET, KAJAL Consulting Unavailable MEET, KAJAL Admitting Unavailable MEET, KAJAL Attending Unavailable TYLER, DR VILLALOBOS Primary Care Unavailable ROMMEL, DR TAMIKO Dickens Consulting Unavailable MEET, KAJAL Consulting Unavailable DAMON, DR ELLIOT Denis Consulting Unavailable TYLER, DR VILLALOBOS Primary Care Unavailable MEET, KAJAL Attending Unavailable MEET, KAJAL Admitting Unavailable MEET, KAJAL Consulting Unavailable HIGHLANDER, TAWANA Dong Admitting Unavailable HIGHLANDER, TAWANA Dong Attending Unavailable HOUSE, DR VILLALOBOS Primary Care Unavailable HIGHLANDER, ATWANA Dong Consulting Unavailable HILLBASHIR Consulting Unavailable HIGHLANDER, TAWANA Dong Admitting Unavailable HIGHLANDER, TAWANA Dong Attending Unavailable TYLER, DR VILLALOBOS Primary Care Unavailable DAMON, DR ELLIOT Denis Consulting Unavailable HIGHLANDER, TAWANA Dong Consulting Unavailable AGUBOSIM, EYAL Consulting Unavailable LYDIA ., ANITA LUU Consulting Unavailable JUNGSADE, REBECCA Consulting Unavailable ROMMEL, DR TAMIKO Dickens Consulting Unavailable TYLER, DR VILLALOBOS Primary Care Unavailable MEET, KAJAL Attending Unavailable MEET, KAJAL Admitting Unavailable MEET, KAJAL Consulting Unavailable HOUSE, DR VILLALOBOS Admitting Unavailable [...] Consulting Unavailable TAWANA FOSTER Consulting Unavailable CAROL WEBB Attending Unavailable CAROL WEBB Attending Unavailable SHAIKH MAIN Primary Care Physician [phone] Etelvina WELLER, Primary Care Provider Ron Palomares Attending Unavailable Segun HOLLOWAY Attending Unavailable Segun HOLLOWAY Attending Unavailable MD Tyson Collazo Attending Provider Tyson Collazo Attending Unavailable Tyson Collazo Admitting Unavailable Molina De Anda MD Primary Care Provider [employer] MECHANIC CROWN ASSEMBLY MACHINE, Angel Luis Unavailable [employer] UP MECHANIC CROWN ASSEMBLY MACHINE, Angel Luis Unavailable Arun PMHNP-, Eunice Unavailable [phone] Meek WELLER, Flores Gutierrez Attending Unavailable No Pcp, No Pcp Primary Care Provider UnavailSHELIA Kohler Attending Unavailable NO PCP, NO PCP Primary Care Unavailable GERMAIN, ANGEL LUIS Attending Unavailabl e AICHHOLZ, PASCALE Attending Unavailable AICHHOLZ, PASCALE Attending Unavailable AICHHOLZ, PASCALE Attending Unavailable AICHHOLZ, PASCALE Attending Unavailable DIAS, EUNICE Attending Unavailable AICHHOLZ, PASCALE Referring Unavailable DIASMINALEUNICE Attending Unavailable AICHHOLZ, PASCALE Attending Unavailable GROVES, ANGEL LUIS Attending Unavailabl e GROVES, ANGEL LUIS Attending Unavailabl e GROVES, ANGEL LUIS Attending Unavailabl e GROVES, ANGEL LUIS Attending Unavailabl e GROVES, ANGEL LUIS Attending Unavailabl e AICHHOLZ, PASCALE Attending Unavailable Allergies Allergy Classification Reported Allergen(s) Allergy Type Date of Onset Reaction(s) Facility (2 sources) penciclovir; Translations: [penciclovir] Drug Allergy 2 [facility] Repository (6 sources) Penicillins; Translations: [PENICILLINS] Drug allergy (disorder) 4 [facility] Repository (20 sources) Penicillin G Drug Allergy 3 Unknown [facility] (20 sources) Penicillins Propensity to adverse reactions 3 Hives [facility] (2 sources) Penicillins Propensity to adverse reactions to drug [address] [facility] [employer] Work Phone: Medications Current Medications Medication Drug Class(es) Dates Sig (Normalized) Sig (Original) [id number] 200 actuat albuterol 0.09 mg/actuat metered dose inhaler (20 sources) beta2-Adrenergic Agonist Start: 02-06-2025 End: 03-08-2025 take 2 puff(s) by inhalation every six hours as needed albuterol (PROVENTIL HFA;VENTOLIN HFA) 90 mcg/actuation inhaler Inhale 2 puffs every 6 (six) hours as needed. 02/06/2025 03/08/2025 Active Start: 01-14-2025 End: 03-08-2025 take 2 puff(s) by inhalation every six hours for wheezing albuterol HFA 90 mcg/act inhaler Indications: URTI (acute upper respiratory infection) , Non-recurrent acute suppurative otitis media of both ears without spontaneous rupture of tympanic membranes Inhale 2 puffs every 6 (six) hours if needed for wheezing 8 g 1 02/06/2025 03/08/2025 Active Start: 02-29-2024 End: 01-19-2025 take 2 puff(s) by inhalation every four hours for wheezing albuterol HFA 90 mcg/act inhaler Indications: URTI (acute upper respiratory infection) , Non-recurrent acute suppurative otitis media of both ears without spontaneous rupture of tympanic membranes Inhale 2 puffs every 4 (four) hours if needed for wheezing 18 g 12/20/2024 01/14/2025 Discontinued ARIPiprazole 10 mg oral tablet (2 sources) Atypical Antipsychotic Start: 05-24-2023 take 1 tablet by mouth once daily aripiprazole 10 mg Tab 10 mg = 1 tab(s), Oral, Daily, Refills(s) 0 Start Date: 05/24/23 Status: Ordered ARIPiprazole Act ada cariprazine 3 mg oral capsule (18 sources) Atypical Antipsychotic Start: 02-24-2025 End: 03-26-2025 take 1 capsule by mouth once daily Cariprazine HCl (Vraylar) 3 MG capsule Indications: Severe episode of recurrent major depressive disorder, without psychotic features (HCC) Take 3 mg by mouth Daily 30 capsule 02/24/2025 03/26/2025 Active Start: 01-22-2025 End: 02-24-2025 take 1 capsule by mouth once daily Cariprazine HCl (Vraylar) 1.5 MG capsule Indications: Severe episode of recurrent major depressive disorder, without psychotic features (HCC) Take 1.5 mg by mouth Daily 30 capsule 01/22/2025 02/24/2025 Discontinued cyclobenzaprine hydrochloride 10 mg oral tablet (6 sources) Muscle Relaxant Start: 01-20-2025 take 1 tablet by mouth three times daily as needed cyclobenzaprine (FLEXERIL) 10 mg tablet Take 1 tablet (10 mg total) by mouth 3 (three) times a day as needed. 01/20/2025 Active Cymbalta 30 mg Cap-DR (2 sources) [...] mg) by mouth Daily 90 capsule 1 11/19/2024 Active Start: 02-29-2024 End: 02-17-2025 take 1 capsule by mouth once daily DULoxetine (Cymbalta) [address] capsule Indications: Fibromyalgia Take 1 capsule (60 mg) by mouth Daily 90 capsule 1 11/19/2024 Active Start: 07-03-2023 End: 10-01-2023 take 1 capsule by mouth in the morning DULoxetine (Cymbalta) [address] capsule Indications: Fibromyalgia Take 1 capsule (60 mg) by mouth in the morning. 30 capsule 2 07/03/2023 10/01/2023 Active estradiol 0.1 mg/ml vaginal cream (6 sources) Estrogen Start: 02-06-2025 estradiol (Est race) 0.1 MG/GM vaginal cream Insert 1.5 g into the vagina 2 (two) times a week 02/06/2025 Active Start: 02-06-2025 estradioL (EST RACE) 0.01 % (0.1 mg/gram) vaginal cream Indications: Cystocele with second degree uterine prolapse , History of reconstructive repair of rectocele , Urge urinary incontinence Apply pea sized amount ( 1.5 g) to vaginal introitus nightly for 4 weeks then 1-2 times per week thereafte 42.5 g 2 02/06/2025 Active eszopiclone 1 mg oral tablet (3 [...] by mouth Daily 30 tablet 5 10/02/2024 Active Start: 06-07-2023 take 1 tablet by [...] propionate 0.05 mg/actuat metered dose nasal spray (20 sources) Corticosteroid Start: 11-18-2024 take 2 spray(s) nasal route in the morning fluticasone propionate (FLONASE) 50 mcg/actuation nasal spray Administer 2 sprays into each nostril in the morning. 11/18/2024 Active Start: 08-12-2024 End: 12-18-2024 take 2 spray(s) nasal route once daily fluticasone (Flonase) 50 MCG/ACT nasal spray Indications: Environmental and seasonal allergies Administer 2 sprays into each nostril Daily Shake gently. Before first use, prime pump. After use, clean tip and replace cap. 16 g 11/18/2024 Active gabapentin 300 mg oral capsule (20 sources) Anti-epileptic Agent Start: 11-18-2024 take 1 capsule by mouth in the morning, then take 1 capsule by mouth in the evening, then take 1 capsule by mouth at bedtime gabapentin (Neurontin) 300 MG capsule Indications: Fibromyalgia Take 1 capsule (300 mg) by mouth in the morning and 1 capsule (300 mg) in the evening and 1 capsule (300 mg) before bedtime. 90 capsule 5 11/18/2024 Active Start: 06-11-2024 End: 12-18-2024 take 1 capsule by mouth in the morning, then take 1 capsule by mouth in the evening, then take 1 capsule by mouth at bedtime gabapentin (Neurontin) 300 MG capsule Indications: Fibromyalgia Take 1 capsule (300 mg) by mouth in the morning and 1 capsule (300 mg) in the evening and 1 capsule (300 mg) before bedtime. 90 capsule 5 11/18/2024 Active lactulose 667 mg/ml oral solution (4 [...] capsule (20 sources) Proton Pump Inhibitor Start: 12-21-2024 End: 01-06-2025 lansoprazole (Prevacid) [address] capsule Take 15 mg by mouth in the morning. Take before meals. 12/21/2024 01/06/2025 Discontinued (Therapy completed) Start: 05-24-2023 End: 05-27-2025 take 1 capsule by mouth before mealtime lansoprazole (Prevacid) [address] capsule Indications: Gastroesophageal reflux disease, unspecified whether esophagitis present Take 1 capsule (30 mg) by mouth in the morning. Take before meals. 90 capsule 1 02/26/2025 05/27/2025 Active Lansoprazole Act ada meloxicam 15 mg oral tablet (20 sources) Nonsteroidal Anti-inflammatory Drug Start: 10-02-2024 take 1 tablet by mouth every twenty-four hours as needed for pain meloxicam (Mobic) 15 MG tablet Take 15 mg by mouth Daily as needed for mild pain 10/02/2024 Active Meloxicam Active pantoprazole 40 mg delayed release oral tablet (20 sources) Proton Pump Inhibitor Start: 11-20-2024 End: 02-26-2025 take 1 tablet by mouth once daily pantoprazole (ProtoNix) 40 MG EC tablet Indications: Gastroesophageal reflux disease, unspecified whether esophagitis present Take 1 tablet (40 mg) by mouth Daily Do not crush, chew, or split. 90 tablet 11/20/2024 02/26/2025 Discontinued (Ineffective) Start: 02-29-2024 End: 08-12-2024 take 1 tablet by mouth once daily pantoprazole (ProtoNix) 40 MG EC tablet Indications: Gastro-esophageal reflux disease without esophagitis Take 1 tablet (40 mg) by mouth Daily 90 tablet 02/29/2024 08/12/2024 Discontinued (Therapy completed) pregabalin (1 source) Pregabalin Activ e sod sulf-pot chloride-mag sulf 1.479-0.188- 0.225 gram tablet (2 sources) Start: 023 sod sulf-pot chloride-mag sulf 1.479-0.188- 0.225 gram tablet See instructional sheet given by office. Patient was given a [employer] coupon voucher to use, this is not to be ran through patients insurance. 24 tablet 02/13/2023 Active sulfamethoxazole 800 mg / trimethoprim 160 mg oral tablet (11 sources) Dihydrofolate Reductase Inhibitor Antibacterial, Sulfonamide Antimicrobial Start: End: take 1 tablet by mouth every twelve hours for urinary tract infection and urinary tract infection sulfamethoxazole-tr imethoprim (Bactrim DS) 800-160 MG per tablet Indications: UTI (urinary tract infection), uncomplicated Take 1 tablet by mouth every 12 (twelve) hours for 7 days 14 tablet 11/14/2024 11/21/2024 Active Syringe 22G X 3/4 3 ML misc (1 source) Start: 024 End: 024 Syringe 22G X 3/4 3 ML misc Indications: B12 deficiency 1 each every 7 (seven) days 4 each 0 08/14/2023 09/13/2023 Active 24 hr tolterodine tartrate 4 mg extended release oral capsule (20 sources) Cholinergic Muscarinic Antagonist Start: take 1 capsule by mouth every twenty-four hours in the morning tolterodine LA (DETROL LA) 4 mg 24 hr capsule Take 1 capsule (4 mg total) by mouth in the morning. 12/21/2024 Active Start: 05-24-2023 End: 02-16-2025 take 1 capsule by mouth once daily tolterodine LA (Detrol LA) 4 MG 24 hr capsule Take 4 mg by mouth Daily 12/21/2024 Active Tolterodine Tart rate ER Active vitamin b12 1 mg/ml injectable solution (9 sources) Vitamin B12 Start: 08-04-2023 inject 1000 [...] sources) gamma-Aminobutyric Acid-ergic Agonist Start: 07-29-2024 End: 03-22-2025 zolpidem (Ambien) 10 MG tablet Indications: Psychophysiological insomnia Take 1 tablet (10 mg) by mouth as needed at bedtime for sleep 30 tablet 2 02/20/2025 03/22/2025 Active Start: 02-29-2024 End: 07-25-2024 zolpidem (Ambien) [...] day #2-#5 6 tablet 08/12/2024 09/04/2024 Discontinued citalopram 40 mg oral tablet (20 sources) Serotonin Reuptake Inhibitor Start: 02-29-2024 End: 03-03-2025 take 1 tablet by mouth in the morning citalopram (CeleXA) 40 MG tablet Indications: Bipolar disorder with severe depression (HCC) Take 1 tablet (40 mg) by mouth in the morning. 90 tablet 1 11/20/2024 01/06/2025 Discontinued (Therapy completed) Start: 08-14-2023 End: 11-26-2023 take 1 tablet by mouth in the morning citalopram (CeleXA) 40 MG tablet Indications: Bipolar disorder with severe depression (CMS/HCC) Take 1 tablet (40 mg) by mouth in the morning. 90 tablet 0 08/28/2023 11/26/2023 Active Citalopram [place] bromide Active hyoscyamine sulfate 0.125 mg oral tablet (20 sources) Start: 02-26-2024 End: 08-12-2024 take 1 tablet by mouth every six hours as needed hyoscyamine (Anaspaz,Levsin) 0.125 MG tablet Take 0.125 mg by mouth every 6 (six) hours if needed 02/26/2024 08/12/2024 Discontinued (Therapy completed) lamoTRIgine 25 mg oral tablet (19 sources) Mood Stabilizer, Anti-epilepti c Agent Start: 01-22-2025 End: 02-24-2025 lamoTRIgine (LaMICtal) 25 MG tablet Indications: Bipolar disorder with severe depression (HCC) Take 1 tablet (25 mg) by mouth Daily for 7 days 1 pill at bedtime for 7 weeks then stop medication 01/22/2025 02/24/2025 Discontinued (Therapy completed) Start: 01-06-2025 End: 01-06-2025 lamoTRIgine (LaMICtal) 25 MG tablet Indications: Bipolar disorder with severe depression (HCC) 1 pill at bedtime for 2 weeks, then increase to 1 pill twice a day 60 tablet 01/06/2025 Active magnesium citrate 58.2 mg/ml oral solution (20 [...] in the morning. 08/12/2024 Discontinued (Therapy completed) phentermine hydrochloride 37.5 mg oral tablet (20 sources) Sympathomimetic [place]ine Anorectic Start: 07-31-2024 End: 01-06-2025 take 1 tablet by mouth before mealtime phentermine (Adipex-P) 37.5 MG tablet Indications: BMI 32.0-32.9,adult , Class 1 obesity due to excess calories without serious comorbidity in adult, unspecified BMI Take 1 tablet (37.5 mg) by mouth in the morning. Take before meals. 30 tablet 11/20/2024 01/06/2025 Discontinued (Therapy completed) polyethylene glycol 3350 93784 mg powder for oral solution (9 sources) [...] Date Documented Da te Episodic/Chronic Anxiety disorders (20 sources) Anxiety; Translations: [Generalized anxiety disorder] Onset: 5 05-24-2023 Chronic Cardiac dysrhythmias (2 sources) Palpitations; Translations: [Palpitations] Onset: 3 Episodic Deficiency and other anemia (10 sources) Iron deficiency anemia secondary to inadequate dietary iron intake; Translations: [Other iron deficiency anemias] 07-31-2024 Episodic Esophageal disorders (20 sources) Gastroesophageal reflux disease; Translations: [Gastro-esophageal reflux disease without esophagitis] Onset: 3 05-24-2023 Chronic Genitourinary symptoms and ill-defined conditions (3 sources) Urge incontinence of urine; Translations: [Urge incontinence] Onset: 5 02-06-2025 Chronic Genitourinary symptoms and ill-defined conditions (1 source) Incomplete emptying of bladder; Translations: [Retention of urine, unspecified] 02-06-2025 Episodic Headache; including migraine (20 sources) Menstrual status migrainosus; Translations: [Menstrual migraine, not intractable, with status migrainosus] Onset: 5 08-12-2024 Chronic Menopausal disorders (20 sources) Menopausal flushing; Translations: [Menopausal and female climacteric states] Onset: 5 11-20-2024 Chronic Miscellaneous mental health disorders (20 sources) Psychophysiologic insomnia; Translations: [Psychophysiologic insomnia] Onset: 3 07-04-2023 Chronic Mood disorders (20 sources) Bipolar disorder; Translations: [Bipolar affective disorder, current episode depression] Onset: 3 Resolved: 5 05-24-2023 Chronic Osteoarthritis (5 sources) Primary osteoarthritis, left ankle and foot; Translations: [PRIMARY OSTEOARTHRITIS LT ANK FOOT] Onset: 2 Chronic Other acquired deformities (1 source) Contracture, left ankle; Translations: [CONTRACTURE LEFT ANKLE] Onset: 2 Chronic Other aftercare (1 source) Other jail (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; Translations: [OTH SENIOR LINUX ENGINEER CURRENT DRUG THERAPY] Onset: 2 Episodic Other connective tissue disease (4 sources) Pain in left foot; Translations: [PAIN IN LEFT FOOT] Onset: 2 Episodic Other diseases of bladder and urethra (20 sources) Overactive bladder; Translations: [Overactive bladder] Onset: 4 Resolved: 5 05-24-2023 Chronic Other diseases of bladder and urethra (20 sources) Detrusor overactivity; Translations: [Overactive bladder] Onset: 5 08-12-2024 Chronic Other diseases of bladder and urethra (20 sources) Overactive bladder due to prolapse of female genital organ; Translations: [Overactive bladder] Onset: 5 09-04-2024 Chronic Other gastrointestinal disorders (2 sources) Bariatric [...] mass index (BMI) 34.0-34.9, adult] Onset: 5 Resolved: 5 06-07-2023 Chronic Other nutritional; endocrine; and metabolic disorders (2 sources) Obesity 05-24-2023 Chronic Other nutritional; endocrine; and metabolic disorders (20 sources) Obesity caused by energy imbalance; Translations: [Class 1 obesity due to excess calories without serious comorbidity in adult, unspecified BMI] Onset: 5 08-12-2024 Chronic Other upper respiratory disease (20 sources) Allergic [...] Onset: 3 06-30-2023 Chronic Residual codes; unclassified (19 sources) Sleep apnea; Translations: [Sleep apnea, unspecified] Onset: 5 01-22-2025 Chronic Residual codes; unclassified (1 source) Acquired absence of other specified parts of digestive tract; Translations: [ACQ ABSENCE OTH PART DIGESTV TRACT] Onset: 2 Episodic Residual codes; unclassified (2 sources) Localized edema; Translations: [Localized edema] Onset: 3 Episodic Residual codes; unclassified (1 source) Other specified postprocedural states; Translations: [Other specified postprocedural states] Onset: 5 Episodic Spondylosis; intervertebral disc disorders; other back problems (20 sources) Lumbosacral stenosis; Translations: [Spinal stenosis, lumbosacral region] Onset: 5 02-05-2025 Episodic Substance-related disorders (20 sources) Nicotine dependence, [...] on antidepressant monitoring plan Onset: 4 08-03-2023 Unclassified (1 source) New Patient Onset: 5 Past or Other Problems Problem Classification Problem Date Documented Da te Episodic/Chronic Abdominal pain (20 sources) Left upper quadrant pain; Translations: [Left upper quadrant pain] Onset: 4 Episodic Adjustment disorders (20 sources) Stress and adjustment reaction; Translations: [Reaction to severe stress, unspecified] Onset: 4 Resolved: 5 Chronic Administrative/social admission (20 sources) Stress; Translations: [Finding relating to psychosocial functioning] Onset: 5 Resolved: 5 03-18-2024 Episodic Deficiency and other anemia (20 sources) Iron deficiency anemia; Translations: [Iron deficiency anemia, unspecified] Onset: 3 Episodic Epilepsy; convulsions (20 sources) Neurological finding; Translations: [Unspecified convulsions] Onset: 4 Resolved: 5 01-22-2024 Episodic Immunizations and screening for infectious disease (1 source) Contact with and (suspected) exposure to other viral communicable diseases Onset: 2 Resolved: 2 Episodic Malaise and fatigue (20 sources) Malaise and fatigue; Translations: [Other malaise] Onset: 5 01-20-2025 Episodic Menstrual disorders (20 sources) Menorrhagia; Translations: [Excessive and frequent menstruation with regular cycle] Onset: 3 Resolved: 5 06-30-2023 Chronic Mood disorders (20 sources) Mood disorders Onset: 4 Resolved: 5 08-03-2023 Mycoses (20 sources) Opportunistic mycosis; Translations: [...] fascial fibromatosis] Onset: 3 06-30-2023 Episodic Other female genital disorders (20 sources) Female genital organ symptoms; Translations: [Unspecified condition associated with female genital organs and menstrual cycle] Onset: 5 Resolved: 5 08-12-2024 Episodic Other gastrointestinal disorders (20 sources) History [...] 3 Resolved: 5 Episodic Other upper respiratory infections (20 sources) Acute upper respiratory infection, unspecified; Translations: [Acute upper respiratory infection] Onset: 2 Resolved: 5 Episodic Otitis media and related conditions (20 sources) Acute suppurative otitis media without spontaneous rupture of ear drum; Translations: [Acute suppurative otitis media without spontaneous rupture of ear drum, bilateral] Onset: 4 Resolved: 5 01-08-2024 Episodic Residual codes; unclassified (19 sources) Insomnia; Translations: [Insomnia, unspecified] Onset: 3 01-22-2025 Episodic Skin and subcutaneous tissue infections (20 sources) Abscess of groin; Translations: [Cutaneous abscess of groin] Onset: 4 Resolved: 5 08-15-2023 Episodic Unclassified (1 source) CONTACT W/AND (SUSP) EXPOS COVID-19; Translations: [CONTACT W/AND (SUSP) EXPOS COVID-19] Onset: 1 Unclassified (20 sources) Smoker; Translations: [Smoking] Onset: 5 Resolved: 5 10-02-2024 Urinary tract infections (20 sources) Urinary tract infectious disease; Translations: [Urinary tract infection, site not specified] Onset: 5 Resolved: 5 11-14-2024 Episodic Results Test Name Value Interpretation Reference Range Facility SEGMENTAL BLOOD PRESSUREon 0 02-27-2025 [place] [address] Cardiology Report Signed Patient: TALIA RUTHERFORD MR#: [id number] : 1970 Acct:[id number] Age/Sex: 54 / F ADM Date: 02/26/25 Loc: CARD Attending Dr: Kajal LAZAR Ordering Physician: Kajal Escobedo Date of Service: 02/26/25 Procedure(s): CA segmental UE or LE PONCE Accession Number(s): [id number] cc: Pascale Arana NP; Kajal Escobedo [facility] Test Date: 2025-02-26 Pat Name: TALIA RUTHERFORD Department: Room: - Gender: Female Trailer Park Manager: Cari Nichole : 1970 Requested By: Kajal Escobedo Order Number: [id number] Garth MD: SCOTT PARKINSON M.D. Interpretive Statements [...] Dictated By: SCOTT PARKINSON Signed By: 02/27/25 [id number] DD/ 1534 TD/TT: Fish Hatchery Specialist: [facility] Radiology, Radiologi MD blanche - 02/27/2025 [place] [address] Cardiology Report Signed Patient: TALIA RUTHERFORD MR#: [id number] : 1970 Acct:[id number] Age/Sex: 54 / F ADM Date: 02/26/25 Loc: CARD Attending Dr: Kajal LAZAR Ordering Physician: Kajal Escobedo Date of Service: 02/26/25 Procedure(s): CA segmental UE or LE PONCE Accession Number(s): [id number] cc: Pascale Arana NP; Kajal Escobedo [facility] Test Date: 2025-02-26 Pat Name: TALIA RUTHERFORD Department: Room: - Gender: Female Trailer Park Manager: Cari Nichole : 1970 Requested By: Kajal Escobedo Order Number: [id number] Reading MD: SCOTT PARKINSON M.D. Interpretive Statements [...] 02/27/25 0907 02/27/25 0907 DD/ 1534 TD/TT: Fish Hatchery Specialist: [facility] SEGMENTAL BLOOD PRESSUREOrde red By: Radiologist Radiology on 02-27-2025 [facility] Work Phone: SEGMENTAL BLOOD PRESSUREon 0 02-26-2025 Radiology Study observation (narrative) [facility] [employer] XR FOOT LT MIN 3Von 02-20-20 [address] [place] [id number] XRay Report Signed Patient: TALIA RUTHERFORD MR#: [id number] : 1970 Acct:[id number] Age/Sex: 54 / F ADM Date: 02/19/25 Loc: RAD Attending Dr: Kajal LAZAR Ordering Physician: Kajal Escobedo Date of Service: 02/19/25 Procedure(s): XR foot LT min 3V Accession Number(s): [id number] cc: Pascale Arana NP; Kajal Escobedo [address] [address] Patient Name: TALIA RUTHERFORD MRN: [id number] date: 1970 Sex: F Assigned Patient Location: RAD Current Patient Location: RAD Accession/Order Number: [id number] Exam Date: 02/19/2025 10:39 Report Date: 02/19/2025 15:03 At the request of: KAJAL LAZAR Procedure: XR foot LT min 3V [...] Jr. DConsueloOConsuelo 02/19/2025 3:03 PM Dictation Location: [place] [address] Electronically authenticated by: [id number] Y Date: 02/19/2025 15:03 Dictated By: Merlin Massey M.D. Signed By: 02/19/25 1506 DD/ 1503 TD/TT: Fish Hatchery Specialist: Lisa Marmolejo MD - 02/19/2025 [place] [address] XRay Report Signed Patient: TALIA RUTHERFORD MR#: [id number] : 1970 Acct:[id number] Age/Sex: 54 / F ADM Date: 02/19/25 Loc: RAD Attending Dr: Kajal LAZAR Ordering Physician: Kajal Escobedo Date of Service: 02/19/25 Procedure(s): XR foot LT min 3V Accession Number(s): [id number] cc: Pascale rAana NP; Kajal Escobedo [place] [id number] Patient Name: TALIA RUTHERFORD MRN: [facility]:[id number] date: 1970 Sex: F Assigned Patient Location: RAD Current Patient Location: RAD Accession/Order Number: [id number] Exam Date: 02/19/2025 10:39 Report Date: 02/19/2025 15:03 At the request of: KAJAL LAZAR Procedure: XR foot LT min 3V [...] CHANGE WITH PLANTAR SPURRING. Impression dictated by: Charity Castro Jr.OConsuelo 02/19/2025 3:03 PM Dictation Location: [place] [address] Electronically authenticated by: [id number] Y Date: 02/19/2025 15:03 Dictated By: Merlin Massey M.D. Signed By: 02/19/25 1506 DD/ 1503 TD/TT: Fish Hatchery Specialist: [facility] Radiology Study observation (narrative) [facility] XR FOOT LT MIN 3VOrdered By: Radiologist Radiology on 02-19-2025 [facility] [employer] Work Phone: MR Cervical spine WO contras ton 02-05-2025 [place] [address] Magnetic Resonance Report Signed Patient: TALIA RUTHERFORD MR#: [id number] : 1970 Acct:[id number] Age/Sex: 54 / F ADM Date: 02/04/25 Loc: MRI Attending Dr: Flores Eden M.D. Ordering Physician: Flores Eden M.D. Date of Service: 02/04/25 Procedure(s): MR cervical spine wo con Accession Number(s): [id number] cc: Pascale Arana SET UP MECH[employer]IC [employer] ASSEMBLY MACHINE; Flores Eden M.D. [place] [id number] Patient Name: TALIA RUTHERFORD MRN: [facility]:[id number] date: 1970 Sex: F Assigned Patient Location: MRI Current Patient Location: Accession/Order Number: [id number] Exam Date: 02/05/2025 12:10 Report Date: 02/05/2025 12:16 At the request of: FLORES EDEN MD Procedure: MR cervical spine wo [...] Uncovertebral spurring greatest right. Moderate right and vnzt-cy-owmykedp left-sided neural foraminal narrowing. Mild canal narrowing. C5-6: Broad-based disc bulge with uncovertebral spurring, greatest left. Moderate right-sided moderate to severe left-sided neural foraminal narrowing. Mild central canal stenosis. C6-C7: Broad-based disc osteophyte complex with uncovertebral spurring. Bwej-am-opiiumyj right moderate severe left neural foraminal narrowing. Ssda-nf-apmqnvcx canal narrowing. C7-T1: Minimal vertebral hypertrophy. Moderate facet arthropathy. Canal and patent. Mild foraminal narrowing. MR/MR cervical spine wo con IMPRESSION: Overall multilevel degenerative changes with up to daom-qb-povjxxzi central canal narrowing. Multilevel foraminal encroachment as noted above. Impression dictated by: Mushtaq Antony M.D. 02/05/2025 12:16 PM Dictation Location: [place] [address] Electronically authenticated by: [id number] Y Date: 02/05/2025 12:16 Dictated By: Mushtaq Antony M.D. Signed By: 02/05/25 1218 DD/ 1216 TD/TT: Fish Hatchery Specialist: [facility] Radiology, Radiolograndall mancia MD - 02/05/2025 [place] [address] Magnetic Resonance Report Signed Patient: TALIA RUTHERFORD MR#: [id number] : 1970 Acct:[id number] Age/Sex: 54 / F ADM Date: 02/04/25 Loc: MRI Attending Dr: Flores Eden M.D. Ordering Physician: Flores Eden M.D. Date of Service: 02/04/25 Procedure(s): MR cervical spine wo con Accession Number(s): [id number] cc: Pascale Arana NP; Flores Eden M.D. [place] [id number] Patient Name: TALIA RUTHERFORD MRN: [facility]:[id number] date: 1970 Sex: F Assigned Patient Location: MRI Current Patient Location: Accession/Order Number: [id number] Exam Date: 02/05/2025 12:10 Report Date: 02/05/2025 12:16 At the request of: FLORES EDEN MD Procedure: MR cervical spine wo [...] Uncovertebral spurring greatest right. Moderate right and fjbt-xs-kffkqktm left-sided neural foraminal narrowing. Mild canal narrowing. C5-6: Broad-based disc bulge with uncovertebral spurring, greatest left. Moderate right-sided moderate to severe left-sided neural foraminal narrowing. Mild central canal stenosis. C6-C7: Broad-based disc osteophyte complex with uncovertebral spurring. Rfkg-ny-cwmbbcce right moderate severe left neural foraminal narrowing. Ravo-mk-dafjbwix canal narrowing. C7-T1: Minimal vertebral hypertrophy. Moderate facet arthropathy. Canal and patent. Mild foraminal narrowing. MR/MR cervical spine wo con IMPRESSION: Overall multilevel degenerative changes with up to emgl-sk-zlztzuwl central canal narrowing. Multilevel foraminal encroachment as noted above. Impression dictated by: Mushtaq Antony M.D. 02/05/2025 12:16 PM Dictation Location: [place] [address] Electronically authenticated by: [id number] Y Date: 02/05/2025 12:16 Dictated By: Mushtaq Antony M.D. Signed By: 02/05/25 1218 DD/ 1216 TD/TT: Fish Hatchery Specialist: [facility] Radiology Study observation (narrative) [facility] MR Cervical spine WO contras tOrdered By: Radiologist Radiology on 02-05-2025 [facility] [employer] Work Phone: MR [place] [address] Magnetic Resonance Report Signed Patient: TALIA RUTHERFORD MR#: [id number] : 1970 Acct:[id number] Age/Sex: 54 / F ADM Date: 02/04/25 Loc: MRI Attending Dr: Flores Eden M.D. Ordering Physician: Flores Eden M.D. Date of Service: 02/04/25 Procedure(s): MR lumbar spine wo con Accession Number(s): [id number] cc: Pascale Arana NP; Flores Eden M.D. [address] [address] Patient Name: TALIA RUTHERFORD MRN: [facility]:[id number] date: 1970 Sex: F Assigned Patient Location: MRI Current Patient Location: Accession/Order Number: [id number] Exam Date: 02/05/2025 12:16 Report Date: 02/05/2025 14:18 At the request of: FLORES EDEN MD Procedure: MR lumbar spine wo [...] Circumferential disc bulge with moderate facet arthropathy. Mhje-zy-gcparzuf right-sided and mild left-sided neural foraminal narrowing . 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 Impression dictated by: Mushtaq Antony M.D. 02/05/2025 2:18 PM Dictation Location: [place] [address] Electronically authenticated by: [id number] Y Date: 02/05/2025 14:18 Dictated By: Mushtaq Antony M.D. Signed By: 02/05/25 1421 DD/ 1418 TD/TT: Fish Hatchery Specialist: [facility] Radiology, Radiologi MD blanche - 02/05/2025 [place] [address] Magnetic Resonance Report Signed Patient: TALIA RUTHERFORD MR#: [id number] : 1970 Acct:[id number] Age/Sex: 54 / F ADM Date: 02/04/25 Loc: MRI Attending Dr: Flores Eden M.D. Ordering Physician: Flores Eden M.D. Date of Service: 02/04/25 Procedure(s): MR lumbar spine wo con Accession Number(s): [id number] cc: Pascale Arana NP; Flores Eden M.D. [place] [phone] Patient Name: TALIA RUTHERFORD MRN: [facility]:[id number] date: 1970 Sex: F Assigned Patient Location: MRI Current Patient Location: Accession/Order Number: [id number] Exam Date: 02/05/2025 12:16 Report Date: 02/05/2025 14:18 At the request of: FLORES EDEN MD Procedure: MR lumbar spine wo [...] Circumferential disc bulge with moderate facet arthropathy. Bbrs-kv-yntrgqtl right-sided and mild left-sided neural foraminal narrowing . 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 Impression dictated by: Mushtaq Antony M.D. 02/05/2025 2:18 PM Dictation Location: [place] [address] Electronically authenticated by: [id number] Y Date: 02/05/2025 14:18 Dictated By: Mushtaq Antony M.D. Signed By: 02/05/25 1421 DD/ 1418 TD/TT: Fish Hatchery Specialist: [facility] Radiology Study observation (narrative) [facility] MR LUMBAR SPINE WO CONOrdere d By: Radiologist Radiology on 02-05-2025 [facility] Work Phone: ALL CBC WITH AUTO DIFFon BASOPHILS ABSOLUTE AUTO 0.1 [facility] Basophils/100 WBC (Bld) 1 % 0.2 - 2.0 % [facility] Eosinophils/100 WBC (Bld) 6.9 % 0.9 - 7.0 % [facility] Erythrocyte distribution width (RBC) [Ratio] 15.6 % High 11.0 - 15.0 % [facility] Hematocrit (Bld) [Volume fraction] 36.2 % 36.0 - 48.0 % [facility] Hemoglobin (Bld) [Mass/Vol] 11.8 g/dL Low 12.0 - 16.0 g/dL [facility] IMMATURE GRANULOCYTES ABS AUTO 0.01 [facility] Immature granulocytes/100 WBC (Bld) 0.2 % 0.0 - 0.5 % [facility] Interpretation and review of laboratory results Abnormal [facility] LYMPHOCYTES ABSOLUTE AUTO 1.9 [facility] Lymphocytes/100 WBC (Bld) 32 % 20.5 - 60.0 % [facility] MCH (RBC) [Entitic mass] 28.6 pg 26.7 - 34.0 pg [facility] MCHC (RBC) [Mass/Vol] 32.6 g/dL 29.9 - 35.2 g/dL [facility] MCV (RBC) [Entitic vol] 87.9 fL 81.0 - 99.0 fL [facility] MONOCYTES ABSOLUTE AUTO 0.3 [facility] Monocytes/100 WBC (Bld) 5.4 % 1.7 - 12.0 % [facility] NEUTROPHILS ABSOLUTE AUTO 3.3 [facility] Neutrophils/100 WBC (Bld) 54.5 % 43.0 - 75.0 % [facility] Platelet mean volume (Bld) [Entitic vol] 9.6 fL 9.5 - 13.[address] [facility] EO # 0.4 [facility] PLT 273 [facility] RBC 4.[address] [facility] WBC 6.1 [facility] IGP,APTIMA HPV,AGE GDLNon AGE GDLN ACOG TESTING Note . [facility] Comment on above: TESTS RESULT FLAG UN ITS REF RANGE LAB Clinician Provided Cytology Information Source.............Cervix;Endocervix No. of containers..01 ThinPrep Vial Age Algo ACOG Fiorella... 66 FLAG LEGEND: L-Low Normal,H-High Normal,LL-Alert Low,HH-Alert High <-Panic Low,>-Panic High,A-Abnormal,AA-Critical Abnormal Performed at: 01 =[facility] [place] [address] Monika Norton MD, HPV APTIMA Positive Abnormal Negative [facility] Comment on above: This nucleic acid am plification test detects fourteen high- risk HPV types (16,18,31,33,35,39,45,51,52,56,58,59,66,68) without differentiation. HPV GENOTYPE 16 Negative Negative [facility] HPV GENOTYPE 18,45 Negative Negative [facility] Comment on above: Performed at: =G - [facility] [address], [place] [id number] Human Resources Training Manager: Monika Norton MD, Phone: [phone] Performed at: WB - [facility] [address], [place] [id number] Human Resources Training Manager: Monika Norton MD, Phone: [phone] IGP, APTIMA HPV, RFX 16/18,45 Note . [facility] Comment on above: TESTS RESULT FLAG UN ITS REF RANGE LAB DIAGNOSIS: 02 NEGATIVE FOR INTRAEPITHELIAL LESION OR MALIGNANCY. Specimen adequacy: 02 Satisfactory for evaluation. Endocervical and/or squamous metaplastic cells (endocervical component) are present. Performed by: Suresh Guerrero, Planning Intern . 02 Note: Note 02 The Pap [...] <-Panic Low,>-Panic High,A-Abnormal,AA-Critical Abnormal Performed at: 02 WB [facility] [address] [address] Monika Norton MD, Interpretation and review of laboratory results Abnormal [facility] BRUSH-ALONE CERVIX ENDOCERVIX [facility] MM TOMOSYNTHESIS SCREENING B Ion 10-23-2024 [place] [address] Mammography Report Signed Patient: TALIA RUTHERFORD MR#: [id number] : 1970 Acct:[id number] Age/Sex: 54 / F ADM Date: 10/23/24 Loc: MAMMO Attending Dr: Pascale Arana NP Ordering Physician: Pascale Arana NP Results: Date of Service: 10/23/24 Follow Up: Procedure(s): MM tomosynthesis screening BI Accession Number(s): [id number] cc: Pascale Arana NP Patient Name: TALIA RUTHERFORD MR#: [id number] : 1970 Exam Date: 10/23/2024 Ordering Doctor: [...] breast cancer at age 51. LOCATION: [facility] BREAST COMPOSITION: There are scattered areas [...] Signed By: 10/23/24 1555 DD/ 54 TD/TT: Fish Hatchery Specialist: [facility] Radiology, Jenniferograndall mancia MD - 10/23/2024 [place] [address] Mammography Report Signed Patient: TALIA RUTHERFORD MR#: [id number] : 1970 Acct:[id number] Age/Sex: 54 / F ADM Date: 10/23/24 Loc: MAMMO Attending Dr: Pascale Arana NP Ordering Physician: Pascale Arana NP Results: Date of Service: 10/23/24 Follow Up: Procedure(s): MM tomosynthesis screening BI Accession Number(s): [id number] cc: Pascale Arana NP Patient Name: TALIA RUTHERFORD MR#: [id number] : 1970 Exam Date: 10/23/2024 Ordering Doctor: [...] breast cancer at age 51. LOCATION: [facility] BREAST COMPOSITION: There are scattered areas [...] Dictated By: Merlin Massey M.D. Signed By: 10/23/241554 DD/ 54 TD/TT: Fish Hatchery Specialist: [facility] Radiology Study observation (narrative) [facility] MM TOMOSYNTHESIS SCREENING B IOrdered By: Radiologist Radiology on 10-23-2024 [facility] Work Phone: ALL CBC WITH AUTO DIFFon BASOPHILS ABSOLUTE AUTO 0 [facility] Basophils/100 WBC (Bld) 0.8 % 0.2 - 2.0 % [facility] Eosinophils/100 WBC (Bld) 3.9 % 0.9 - 7.0 % [facility] Erythrocyte distribution width (RBC) [Ratio] 14.2 % 11.0 - 15.0 % [facility] Hematocrit (Bld) [Volume fraction] 32.9 % Low 36.0 - 48.0 % [facility] Hemoglobin (Bld) [Mass/Vol] 10.6 g/dL Low 12.0 - 16.0 g/dL [facility] IMMATURE GRANULOCYTES ABS AUTO 0 [facility] Immature granulocytes/100 WBC (Bld) 0 % 0.0 - 0.5 % [facility] Interpretation and review of laboratory results Abnormal [facility] LYMPHOCYTES ABSOLUTE AUTO 1.6 [facility] Lymphocytes/100 WBC (Bld) 31.7 % 20.5 - 60.0 % [facility] MCH (RBC) [Entitic mass] 29.5 pg 26.7 - 34.0 pg [facility] MCHC (RBC) [Mass/Vol] 32.2 g/dL 29.9 - 35.2 g/dL [facility] MCV (RBC) [Entitic vol] 91.6 fL 81.0 - 99.0 fL [facility] MONOCYTES ABSOLUTE AUTO 0.4 [facility] Monocytes/100 WBC (Bld) 7.2 % 1.7 - 12.0 % [facility] NEUTROPHILS ABSOLUTE AUTO 2.8 [facility] Neutrophils/100 WBC (Bld) 56.4 % 43.0 - 75.0 % [facility] Platelet mean volume (Bld) [Entitic vol] 10.5 fL 9.5 - 13.5 fL [facility] EO # 0.2 [facility] PLT 199 [facility] TB RBC 3.[address] [facility] WBC 4.9 [facility] CT FOOT LT WO CONon 09-09-19 [place] [address] CT Scan Report Signed Patient: TALIA RUTHERFORD MR#: [id number] : 1970 Acct:[id number] Age/Sex: 54 / F ADM Date: 09/09/24 Loc: CT Attending Dr: Tawana Foster D.P.M. Ordering Physician: Tawana Foster D.P.M. Date of Service: 09/09/24 Procedure(s): CT foot LT wo con Accession Number(s): [id number] cc: ANGEL LUIS GROVES [place] [address] Patient Name: TALIA RUTHERFORD MRN: [facility]:[id number] date: 1970 Sex: F Assigned Patient Location: CT Current Patient Location: CT Accession/Order Number: [id number] Exam Date: 09/09/2024 15:56 Report Date: 09/09/2024 17:39 At the request of: TAWANA FOSTER Procedure: CT foot LT wo con CT [...] Meneses M.D. Signed By: 09/09/24 174 DD/ 173 TD/TT: Fish Hatchery Specialist: [facility] Radiology, Radiolograndall mancia MD - 09/09/2024 [place] [address] CT Scan Report Signed Patient: TALIA RUTHERFORD MR#: [id number] : 1970 Acct:[id number] Age/Sex: 54 / F ADM Date: 09/09/24 Loc: CT Attending Dr: Tawana Foster D.P.M. Ordering Physician: Tawana Foster D.P.M. Date of Service: 09/09/24 Procedure(s): CT foot LT wo con Accession Number(s): [id number] cc: ANGEL LUIS GROVES [place] [address] Patient Name: TALIA RUTHERFORD MRN: [facility]:[id number] date: 1970 Sex: F Assigned Patient Location: CT Current Patient Location: CT Accession/Order Number: [id number] Exam Date: 09/09/2024 15:56 Report Date: 09/09/2024 17:39 At the request of: TAWANA FOSTER Procedure: CT foot LT wo con CT [...] Signed By: 09/09/24 174 DD/ 1739 TD/TT: Fish Hatchery Specialist: [facility] Radiology Study observation (narrative) [facility] CT FOOT LT WO CONOrdered By: Radiologist Radiology on 09-09-2024 [facility] Work Phone: XR FOOT LT MIN 3Von 09-05-19 [place] [id number] XRay Report Signed Patient: TALIA RUTHERFORD MR#: [id number] : 1970 Acct:[id number] Age/Sex: 54 / F ADM Date: 09/04/24 Loc: EC Attending Dr: Tawana Foster D.P.M. Ordering Physician: Tawana Foster D.P.M. Date of Service: 09/04/24 Procedure(s): XR foot LT min 3V Accession Number(s): [id number] cc: ANGEL LUIS GROVES; Tawana Foster D.P.M. [place] [address] Patient Name: TALIA RUTHERFORD MRN: [facility]:[id number] date: 1970 Sex: F Assigned Patient Location: Current Patient Location: Accession/Order Number: [id number] Exam Date: 09/04/2024 15:53 Report Date: 09/05/2024 10:16 At the request of: TAWANA FOSTER Procedure: XR foot LT min 3V PROCEDURE: [...] plantar spur; unchanged. Electronically authenticated by: ELLIOT JOSE Date: 09/05/2024 10:16 Dictated By: Elliot Jose M.D. Signed By: 09/05/24 1019 DD/ 1016 TD/TT: Fish Hatchery Specialist: [facility] RadiologyJenniferograndall mancia MD - 09/05/2024 [place] [address] XRay Report Signed Patient: TALIA RUTHERFORD MR#: [id number] : 1970 Acct:[id number] Age/Sex: 54 / F ADM Date: 09/04/24 Loc: EC Attending Dr: Tawana Foster D.P.M. Ordering Physician: Tawana Foster D.P.M. Date of Service: 09/04/24 Procedure(s): XR foot LT min 3V Accession Number(s): [id number] cc: ANGEL LUIS GROVES; Tawana Foster D.P.M. [place] [address] Patient Name: TALIA RUTHERFORD MRN: [facility]:[id number] date: 1970 Sex: F Assigned Patient Location: Current Patient Location: Accession/Order Number: [id number] Exam Date: 09/04/2024 15:53 Report Date: 09/05/2024 10:16 At the request of: TAWANA FOSTER Procedure: XR foot LT min 3V PROCEDURE: [...] plantar spur; unchanged. Electronically authenticated by: ELLIOT JOSE Date: 09/05/2024 10:16 Dictated By: Elliot Jose M.D. Signed By: 09/05/24 1019 DD/ 1016 TD/TT: Fish Hatchery Specialist: [facility] Radiology Study observation (narrative) [facility] XR FOOT LT MIN 3VOrdered By: Radiologist Radiology on 09-05-2024 [facility] Work Phone: CHRONIC WOUND/ULCER (HTRX)on 08-14-2024 ACINETOBACTER BAUMANNII (CHRONIC WOUND/ULCER) 0 [facility] ACINETOBACTER BAUMANNII (CHRONIC WOUND/ULCER) Not detected [facility] BACTEROIDES FRAGILIS, VULGATUS (CHRONIC WOUND/ULCER) 0 [facility] BACTEROIDES FRAGILIS, VULGATUS (CHRONIC WOUND/ULCER) Not detected [facility] CITROBACTER FREUNDII (CHRONIC WOUND/ULCER) 0 [facility] CITROBACTER FREUNDII (CHRONIC WOUND/ULCER) Not detected [facility] CLOSTRIDIUM PERFRINGENS, NOVYI, SEPTICUM (CHRONIC WOUND/ULCER) 0 [facility] CLOSTRIDIUM PERFRINGENS, NOVYI, SEPTICUM (CHRONIC WOUND/ULCER) Not detected [facility] CORYNEBACTERIUM JEIKEIUM, STRIATUM, TUBERCULOSTEARICUM (CHRONIC WOUND/ULCER 0 [facility] CORYNEBACTERIUM JEIKEIUM, STRIATUM, TUBERCULOSTEARICUM (CHRONIC WOUND/ULCER Not detected [facility] CUTIBACTERIUM (PROPIONIBACTERIUM) ACNES (CHRONIC WOUND/ULCER) 0 [facility] CUTIBACTERIUM (PROPIONIBACTERIUM) ACNES (CHRONIC WOUND/ULCER) Not detected [facility] ENTEROBACTER CLOACAE COMPLEX, KLEBSIELLA (ENTEROBACTER) AEROGENES (CHRONIC 0 [facility] ENTEROBACTER CLOACAE COMPLEX, KLEBSIELLA (ENTEROBACTER) AEROGENES (CHRONIC Not detected [facility] ENTEROCOCCUS FAECALIS, FAECIUM (CHRONIC WOUND/ULCER) 0 [facility] ENTEROCOCCUS FAECALIS, FAECIUM (CHRONIC WOUND/ULCER) Not detected [facility] ESCHERICHIA COLI (CHRONIC WOUND/ULCER) 0 [facility] ESCHERICHIA COLI (CHRONIC WOUND/ULCER) Not detected [facility] HERPES SIM[facility]X [facility]IRUS 1 0 [facility]US 1 Not detected [facility] HERPES SIMPLEX VIRUS 2 0 [facility] HERPES SIMPLEX VIRUS 2 Not detected [facility] Interpretation and review of laboratory results Abnormal [facility] KLEBSIELLA PNEUMONIAE, OXYTOCA (CHRONIC WOUND/ULCER) 0 [facility] KLEBSIELLA PNEUMONIAE, OXYTOCA (CHRONIC WOUND/ULCER) Not detected [facility] P. ANAEROBIUS, P. ASACCAROLYTICUS, F. MAGNA, A. PREVOTII 0 [facility] P. ANAEROBIUS, P. ASACCAROLYTICUS, F. MAGNA, A. PREVOTII Not detected [facility] PROTEUS MIRABILIS, VULGARIS (CHRONIC WOUND/ULCER) 0 [facility] PROTEUS MIRABILIS, VULGARIS (CHRONIC WOUND/ULCER) Not detected [facility] PSEUDOMONAS AERUGINOSA (CHRONIC WOUND/ULCER) 0 [facility] PSEUDOMONAS AERUGINOSA (CHRONIC WOUND/ULCER) Not detected [facility] S. agalactiae Org specific cx Ql (Vag fld) 0 [facility] S. agalactiae Org specific cx Ql (Vag fld) Not detected [facility] SERRATIA MARCESCENS (CHRONIC WOUND/ULCER) 0 [facility] SERRATIA MARCESCENS (CHRONIC WOUND/ULCER) Not detected [facility] STAPHYLOCOCCUS AUREUS (CHRONIC WOUND/ULCER) 0 [facility] STAPHYLOCOCCUS AUREUS (CHRONIC WOUND/ULCER) Not detected [facility] STAPHYLOCOCCUS EPIDERMIDIS, HAEMOLYTICUS, LUGDUNENSIS, SAPROPHYTICUS (CHRON 23.533 Abnormal [facility] STAPHYLOCOCCUS EPIDERMIDIS, HAEMOLYTICUS, LUGDUNENSIS, SAPROPHYTICUS (CHRON Detected Abnormal [facility] STREPTOCOCCUS PYOGENES (GROUP A STREP) (CHRONIC WOUND/ULCER) 0 [facility] STREPTOCOCCUS PYOGENES (GROUP A STREP) (CHRONIC WOUND/ULCER) Not detected [facility] VARICELLA ZOSTER VIRUS (HUMAN HERPESVIRUS 3) (CHRONIC WOUND/ULCER) 0 [facility] VARICELLA ZOSTER VIRUS (HUMAN HERPESVIRUS 3) (CHRONIC WOUND/ULCER) Not detected [facility] VIBRIO CHOLERAE, PARAHAEMOLYTICUS, VULNIFICUS (CHRONIC WOUND/ULCER) 0 [facility] VIBRIO CHOLERAE, PARAHAEMOLYTICUS, VULNIFICUS (CHRONIC WOUND/ULCER) Not detected [facility] ALL CBC WITH AUTO DIFFon BASOPHILS ABSOLUTE AUTO 0 [facility] Basophils/100 WBC (Bld) 0.6 % 0.2 - 2.0 % [facility] Eosinophils/100 WBC (Bld) 0 % Low 0.9 - 7.0 % [facility] Erythrocyte distribution width (RBC) [Ratio] 13.6 % 11.0 - 15.0 % [facility] Hematocrit (Bld) [Volume fraction] 37.4 % 36.0 - 48.0 % [facility] Hemoglobin (Bld) [Mass/Vol] 12.1 g/dL 12.0 - 16.0 g/dL [facility] IMMATURE GRANULOCYTES ABS AUTO 0.01 [facility] Immature granulocytes/100 WBC (Bld) 0.2 % 0.0 - 0.5 % [facility] Interpretation and review of laboratory results Abnormal [facility] LYMPHOCYTES ABSOLUTE AUTO 1.1 Low [facility] Lymphocytes/100 WBC (Bld) 19.9 % Low 20.5 - 60.0 % [facility] MCH (RBC) [Entitic mass] 29.4 pg 26.7 - 34.0 pg [facility] MCHC (RBC) [Mass/Vol] 32.4 g/dL 29.9 - 35.2 g/dL [facility] MCV (RBC) [Entitic vol] 91 fL 81.0 - 99.0 fL [facility] MONOCYTES ABSOLUTE AUTO 0.2 Low [facility] Monocytes/100 WBC (Bld) 4.2 % 1.7 - 12.0 % [facility] NEUTROPHILS ABSOLUTE AUTO 4.1 [facility] Neutrophils/100 WBC (Bld) 75.1 % High 43.0 - 75.0 % [facility] Platelet mean volume (Bld) [Entitic vol] 9.7 fL 9.5 - 13.5 fL [facility] TB EO # 0 [facility] TB PLT 256 [facility] RBC 4.11 Low [facility] TB WBC 5.4 [facility] SS-A/Ro Sjogrens Antibodyon 04-18-2024 SS-A/Ro Sjogrens Antibody <0.2 Normal 0.0-0.9 [facility] Comment on above: Performed By: #### S SB, SSA #### [facility] , SS-B/La Sjogrens Antibodyon 04-18-2024 SS-B/La Sjogrens Antibody <0.2 Normal 0.0-0.9 [facility] Comment on above: Result Comment: Perf ormed at: - [facility] [address] [id number] Human Resources Training Manager: Hector Franco PhD, Phone: [phone] PERFORMED BY: [place] [address] [place] [address] PATHOLOGIST IT HELP DESK TECHNICIAN LEAH SANFORD M.D. Performed By: #### S SB, SSA #### [facility] , Ambulatory Visit Summaryon 0 03-18-2024 Ambulatory Visit Summary Ambulatory Visit Summary TALIA RUTHERFORD :1970 Visit Date:03/18/2024 Ambulatory Visit Instructions Your Diagnosis Constipation Left upper quadrant pain Stress Your Care Team Attending Physician - Jelani WELLER, Ron Martin Primary Care Physician - SHAIKH MAIN MD This Is Your Medications List Contact prescribing [...] for choosing us for your care. Normal [facility] Gastroenterology Office/Clin ic Noteon [...] gastric bypass in 2019. Colonoscopy w/ Dr Holloway 07/19/23 Postoperative diagnosis: redundant colon w/ Sigmoid [...] vaccine, inactivated - Not Given Patient Refuses [facility] Comment on above: Result Comment: Elec tronically Signed By: Jelani WELLER, Ron Valdovinos.br\Date and Time Signed: 03/18/24 15:21 EDT Outside Colonoscopyon 2023 Outside Colonoscopy [id number]#1.00TIFF [facility] Reminderson 07-20-2023 Reminders - From: Machelle Arauz LPN To: GSN - Clinical; Sent: 07/20/2023 10:55:11 EST Show up: 06/19/2033 07:00:00 EST Subject: colonoscopy recall Due Date/Time: 07/19/2033 07:00:00 EST Reminder/Recall Patient due for screening colonoscopy 07/19/2033. [facility] Lab Reportson 06-26-2023 Lab Reports [id number]#1.00TIFF [facility] Insurance Correspondenceon 08-09-2022 Insurance Correspondence [id number]#1.00TIFF [facility] Facesheeton 06-08-2023 Facesheet [id number]#1.00TIFF [facility] Physician Referralon 023 Physician Referral [id number]#1.00TIFF [facility] Ambulatory Visit Summaryon 08-07-2022 Ambulatory Visit Summary TALIA RUTHERFORD :1970 [...] for choosing us for your care. Normal [facility] Lab Reportson 05-31-2023 Lab Reports [id number]#1.00TIFF Normal [facility] Consultation Noteon 05-25-20 Consultation Note [id number]#1.00TIFF Normal [facility] Physician Referralon 023 Physician Referral [id number]#1.00TIFF [facility] Office Visiton 04-07-2023 Follow-up visit [id number] Norma Rutherford 1970 F Date Provider Department Center 04/07/2023 [id number] SHAH Family History Problem Relation Age of Onset Brain Aneurysm Mother 80 Diabetes Mother Heart failure Father 80 Diabetes Father Hypertension Father Diabetes Sister Family Status - Relation Status Age at Mother Father Sister Level of Service:[address]138 [place] OFFICE/OUTPATIENT ESTABLISHED MOD MDM 30-39 MIN Normal [facility] 36on 02-08-2023 36 [facility] lab called to re port critical HGB and hematocrit for patient: HGB was 5.1 and hematocrit is 18.9. I spoke with Talia and advised she go to the ED. She verbalized understanding and will do so. Normal [facility] Office Visiton 02-08-2023 Follow-up visit [id number] Norma Rutherford 1970 Date Provider Department Center 02/08/2023 CAROL MOYA Family History Problem Relation Age of Onset Brain Aneurysm Mother 80 Diabetes Mother Heart failure Father 80 Diabetes Father Hypertension Father Diabetes Sister Family Status - Relation Status Age at Mother Father Sister Level of Service:17139 [place] OFFICE/OUTPATIENT NEW MODERATE MDM 45-59 MINUTES Reason for Visit and Comments: Establish Care [42] - Swelling in both legs,right leg is itching and painful Shortness of Breath [878216] Dizziness [862570] Fatigue [46] Normal [facility] PREG HCG QUALon 03-10-2022 , QUAL Negative Normal NEGATIVE [facility] Comment on above: Performed By: #### P REG ####[facility] [address] [place] [address]Dr. Moni Johnson Covid-19 PCR (CVDTB)on 02-21 SARS-CoV-2 (COVID-19) RNA EMMANUEL+probe Ql (Unsp spec) Not detected Normal NOT DETECTED [facility] Comment on above: Result Comment: This test is not yet approved or cleared by the [place] FDA. When there are no FDA-approved or cleared tests available, and other criteria are met, FDA can make tests available under an emergency access mechanism called an Emergency Use Authorization (EUA). The EUA for this test is supported by the [employer] of Health and Human Service's (HHS's) declaration [...] SARS-CoV-2. Performed By: #### C VDTB #### [facility] [address] [address] [address] Moni Johnson PROF CHEM 8 (BAS METB)on Anion gap [Moles/Vol] 9.0 mmol/L Normal [facility] Comment on above: Performed By: #### B MP ####[facility] [address] [place] [address]Dr. Moni Johnson Calcium [Mass/Vol] 8.3 mg/dL Critically low 8.5-10.1 Th e [facility] Comment on above: Performed By: #### B MP ####[facility] [address] [place] [address]DrConsuelo Johnson Chloride [Moles/Vol] 106 mmol/L Normal 98-107 [facility] Comment on above: Performed By: #### B MP ####[facility] [address] [place] [address]Dr. Moni Johnson CO2 [Moles/Vol] 29.2 mmol/L Normal 21.0-32.0 [facility] Comment on above: Performed By: #### B MP ####[facility] [address] [place] [address]Dr. Moni Johnson Creatinine [Mass/Vol] 0.78 mg/dL Normal 0.55-1.02 [facility] Comment on above: Performed By: #### B MP ####[facility] [address] [place] [address]Dr. Moni Alex EGFR-AF CITIZEN OF [place] >60 Normal >=60 [facility] Comment on above: Performed By: #### B MP ####[facility] [address] [place], [place] [address]Dr. Moni Alex EGFR-NON AF CITIZEN OF [place] >60 Normal >=60 [facility] Comment on above: Performed By: #### B MP ####[facility] [address] [place], [place] [address]Dr. Moni Alex Glucose [Mass/Vol] 88 mg/dL Normal 74-[address] [facility] Comment on above: Performed By: #### B MP ####[facility] [address] [place], [place] [address]Dr. Moni Alex Potassium [Moles/Vol] 4.2 mmol/L Normal 3.5-5.1 The [facility] Comment on above: Performed By: #### B MP ####[facility] [address] [place], [place] [address]Dr. Moni Alex Sodium [Moles/Vol] 140 mmol/L Normal 136-[address] [facility] Comment on above: Performed By: #### B MP ####[facility] [address] [place], [place] [address]Dr. Angelinemaria a Alex Urea nitrogen [Mass/Vol] 21.0 mg/dL Critically high 7.0-18.0 The [facility] Comment on above: Performed By: #### B MP ####[facility] [address] [place], [place] [address]Dr. Moni Johnson Urea nitrogen/Creatinine [Mass ratio] 26.9 mg/mg Normal [facility] Comment on above: Performed By: #### B ####[facility] [address] [place], [place] [address]I[address] FOOT LT WO CONon 02-23-20 [...] ELLIOT JOSE Date: 2022-02-22 18:32 Normal [facility] COVID Quick Testingon 2021 Result Negative [facility] Other Quick Fluon 08-30-2021 FLUAV Ab CF (S) [Titer] Negative [facility] Other FLUBV Ab CF (S) [Titer] Negative [facility] Other Covid-19 PCR (CVDTB)on 05-24 SARS-CoV-2 (COVID-19) RNA EMMANUEL+probe Ql (Unsp spec) Not detected Normal NOT DETECTED [facility] Comment on above: Result Comment: This test is not yet approved or cleared by the [place] FDA. When there are no FDA-approved or cleared tests available, and other criteria are met, FDA can make tests available under an emergency access mechanism called an Emergency Use Authorization (EUA). The EUA for this test is supported by the [employer] of Health and Human Service's (HHS's) declaration [...] consistent with SARS-CoV-2. Performed By: #### C [facility] #### [facility] [address] [place] [address] Dr. Moni Johnson Vital Signs Date Time Vital Sign Value Performing Clinician Facility 02-25-2025 11:31-0400 Body mass index (BMI) [Ratio] 28.76 kg/m2 Pascale Mezakendall SET UP [employer] MACHINE Work Phone: [facility] 02-25-2025 11:31-0400 Body temperature 97.81 [degF] Pascale Lastjarrettz SET UP MECH[employer] MACHINE Work Phone: [facility] 02-25-2025 11:31-0400 Body weight 78.38 kg Pascale Lastdes SET UP [employer] MACHINE Work Phone: [facility] 02-25-2025 11:31-0400 Diastolic blood pressure 64 mm[Hg] Pascale Lastdes SET UP [employer] MACHINE Work Phone: [facility] 02-25-2025 11:31-0400 Heart rate 99 /min Pascale Herreraz SET UP MECH[employer] MACHINE Work Phone: [facility] 02-25-2025 11:31-0400 SaO2% (BldA) [Mass fraction] 97 % Pascale Shalades SET UP MECH[employer]SEM[employer] MACHINE Work Phone: [facility] 02-25-2025 11:31-0400 Systolic blood pressure 102 mm[Hg] Pascale Lastjarrettz SET UP [employer] MACHINE Work Phone: [facility] 02-24-2025 15:01-0400 Body mass index (BMI) [Ratio] 28.79 kg/m2 Eunice Dias PMHNP-BC Work Phone: [facility] 02-24-2025 15:01-0400 Body weight 78.47 kg Eunice Dias PMHNP-BC Work Phone: [facility] 02-24-2025 15:01-0400 Diastolic blood pressure 62 mm[Hg] Eunice Dias PMHNP-BC Work Phone: [facility] 02-24-2025 15:01-0400 Heart rate 88 /min Eunice Dias PMHNP-BC Work Phone: [facility] 02-24-2025 15:01-0400 Systolic blood pressure 102 mm[Hg] Eunice Dias PMHNP-BC Work Phone: [facility] 02-06-2025 14:23-0400 Body height 166.4 cm Shelia Muniz DO Work Phone: [facility] 02-06-2025 14:23-0400 Body mass index (BMI) [Ratio] 28.51 kg/m2 Shelia Muinz DO Work Phone: [facility] 02-06-2025 14:23-0400 Body weight 78.93 kg Shelia Muniz DO Work Phone: [facility] 02-06-2025 14:23-0400 Diastolic blood pressure 80 mm[Hg] Shelia Muniz DO Work Phone: [facility] 02-06-2025 14:23-0400 Systolic blood pressure 108 mm[Hg] Shelia Muniz DO Work Phone: [facility] 01-22-2025 09:04-0400 Body mass index (BMI) [Ratio] 29.62 kg/m2 Eunice Dias PMHNP-BC Work Phone: [facility] 01-22-2025 09:04-0400 Body weight 80.74 kg Eunice Dias PMHNP-BC Work Phone: [facility] 01-22-2025 09:04-0400 Diastolic blood pressure 68 mm[Hg] Eunice Dias PMHNP-BC Work Phone: [facility] 01-22-2025 09:04-0400 Heart rate 78 /min Eunice Dias PMHNP-BC Work Phone: [facility] 01-22-2025 09:04-0400 Systolic blood pressure 112 mm[Hg] Eunice Dias PMHNP-BC Work Phone: [facility] 01-06-2025 16:32-0400 Body mass index (BMI) [Ratio] 29.99 kg/m2 Pascale Sumit SET UP ME[employer] MACHINE Work Phone: [facility] 01-06-2025 16:32-0400 Body temperature 98.01 [degF] Pascale Sumit SET UP [employer] MACHINE Work Phone: [facility] 01-06-2025 16:32-0400 Body weight 81.74 kg Pascale Javierz SET UP [employer] MACHINE Work Phone: [facility] 01-06-2025 16:32-0400 Diastolic blood pressure 60 mm[Hg] Pascale Javierz SET UP ME[employer]SEM[employer] MACHINE Work Phone: [facility] 01-06-2025 16:32-0400 Heart rate 82 /min Pascale Javierz SET UP [employer] MACHINE Work Phone: [facility] 01-06-2025 16:32-0400 Respiratory rate 18 /min Pascale Javierz SET UP ME[employer] MACHINE Work Phone: [facility] 01-06-2025 16:32-0400 SaO2% (BldA) [Mass fraction] 98 % Pascale Javierz SET UP [employer] MACHINE Work Phone: [facility] 01-06-2025 16:32-0400 Systolic blood pressure 110 mm[Hg] Pascale Javierz SET UP [employer] MACHINE Work Phone: [facility] 11-20-2024 15:30-0400 Body mass index (BMI) [Ratio] 32.48 kg/m2 Pascale Javierz SET UP [employer] MACHINE Work Phone: [facility] 11-20-2024 15:30-0400 Body temperature 98.2 [degF] Pascale Aichholz SET UP ME[employer] MACHINE Work Phone: [facility] 11-20-2024 15:30-0400 Body weight 88.54 kg Pascale Aichholz SET UP [employer] MACHINE Work Phone: [facility] 11-20-2024 15:30-0400 Diastolic blood pressure 60 mm[Hg] Pascale Aichholz SET UP [employer] MACHINE Work Phone: [facility] 11-20-2024 15:30-0400 Heart rate 80 /min Pascale Aichholz SET UP [employer] MACHINE Work Phone: [facility] 11-20-2024 15:30-0400 Respiratory rate 18 /min Pascale Aichholz SET UP MECH[employer] MACHINE Work Phone: [facility] 11-20-2024 15:30-0400 SaO2% (BldA) [Mass fraction] 95 % Pascale Aichholz SET UP MECH[employer] ASSEMBL[employer] MACHINE Work Phone: [facility] 11-20-2024 15:30-0400 Systolic blood pressure 104 mm[Hg] Pascale Aichholz SET UP MECH[employer]SEM[employer] MACHINE Work Phone: [facility] 10-23-2024 17:34-0400 Body mass index (BMI) [Ratio] 32.58 kg/m2 Pascale Aichholz SET UP [employer] MACHINE Work Phone: [facility] 10-23-2024 17:34-0400 Body temperature 98.8 [degF] Pascale Aichholz SET UP MECH[employer] MACHINE Work Phone: [facility] 10-23-2024 17:34-0400 Body weight 88.81 kg Pascale Aichholz SET UP MECH[employer] MACHINE Work Phone: [facility] 10-23-2024 17:34-0400 Diastolic blood pressure 85 mm[Hg] Pascale Aichholz SET UP [employer] MACHINE Work Phone: [facility] 10-23-2024 17:34-0400 Heart rate 92 /min Pascaleeric Herreraz SET UP MECH[employer] MACHINE Work Phone: [facility] 10-23-2024 17:34-0400 Respiratory rate 18 /min Pascale Shalaholz SET UP [employer] MACHINE Work Phone: [facility] 10-23-2024 17:34-0400 SaO2% (BldA) [Mass fraction] 97 % Pascaleeric Lastholz SET UP MECH[employer] MACHINE Work Phone: [facility] 10-23-2024 17:34-0400 Systolic blood pressure 98 mm[Hg] Pascale Herreraz SET UP [employer] MACHINE Work Phone: [facility] 10-02-2024 16:51-0400 Body height 165.1 cm Pascaleeric Lastholz SET UP [employer]CH[employer] MACHINE Work Phone: [facility] 10-02-2024 16:51-0400 Body mass index (BMI) [Ratio] 33.51 kg/m2 Pascaleeric Lastholz SET UP [employer] MACHINE Work Phone: [facility] 10-02-2024 16:51-0400 Body temperature 97.81 [degF] Pascale Shalaholz SET UP [employer] MACHINE Work Phone: [facility] 10-02-2024 16:51-0400 Body weight 91.35 kg Pascaleeric Lastholz SET UP [employer] MACHINE Work Phone: [facility] 10-02-2024 16:51-0400 Heart rate 68 /min Pascale Shalaholz SET UP [employer] MACHINE Work Phone: [facility] 10-02-2024 16:51-0400 Respiratory rate 18 /min Pascale Shalaholz SET UP [employer] MACHINE Work Phone: [facility] 10-02-2024 16:51-0400 SaO2% (BldA) [Mass fraction] 97 % Pascale Shalaholz SET UP [employer] MACHINE Work Phone: [facility] 09-04-2024 16:10-0500 Body height 165.1 cm Angel Luis Blackburnk SET UP MECH[employer] MACHINE Work Phone: [facility] 09-04-2024 16:10-0500 Body mass index (BMI) [Ratio] 33.28 kg/m2 Angel Luis Groves SET UP [employer] MACHINE Work Phone: [facility] 09-04-2024 16:10-0500 Body temperature 97.2 [degF] Angel Luis Groves SET UP [employer] MACHINE Work Phone: [facility] 09-04-2024 16:10-0500 Body weight 90.72 kg Angel Luis Groves SET UP MECH[employer] MACHINE Work Phone: [facility] 09-04-2024 16:10-0500 Diastolic blood pressure 60 mm[Hg] Angel Luis Groves SET UP [employer] MACHINE Work Phone: [facility] 09-04-2024 16:10-0500 Heart rate 79 /min Angel Luis Groves SET UP [employer] MACHINE Work Phone: [facility] 09-04-2024 16:10-0500 Respiratory rate 16 /min Angel Luis Groves SET UP ME[employer] MACHINE Work Phone: [facility] 09-04-2024 16:10-0500 SaO2% (BldA) [Mass fraction] 98 % Angel Luis Groves SET UP ME[employer] MACHINE Work Phone: [facility] 09-04-2024 16:10-0500 Systolic blood pressure 100 mm[Hg] Angel Luis Groves SET UP ME[employer] MACHINE Work Phone: [facility] 08-12-2024 16:04-0500 Body mass index (BMI) [Ratio] 33.32 kg/m2 Pascale Derrickhholz SET UP [employer] MACHINE Work Phone: [facility] 08-12-2024 16:04-0500 Body temperature 98.1 [degF] Pascale Aichholz SET UP [employer] MACHINE Work Phone: [facility] 08-12-2024 16:04-0500 Body weight 90.81 kg Pascale Aichholz SET UP [employer] MACHINE Work Phone: [facility] 08-12-2024 16:04-0500 Diastolic blood pressure 62 mm[Hg] Pascale Aichholz SET UP [employer] MACHINE Work Phone: [facility] 08-12-2024 16:04-0500 Heart rate 80 /min Pascale Arana SET UP [employer] MACHINE Work Phone: [facility] 08-12-2024 16:04-0500 Respiratory rate 20 /min Pascale Arana SET UP [employer] MACHINE Work Phone: [facility] 08-12-2024 16:04-0500 SaO2% (BldA) [Mass fraction] 97 % Pascale Arana SET UP [employer] MACHINE Work Phone: [facility] 08-12-2024 16:04-0500 Systolic blood pressure 90 mm[Hg] Pascale Arana SET UP [employer] MACHINE Work Phone: [facility] 07-31-2024 14:59-0500 Body height 165.1 cm Angel Luis Groves SET UP ME[employer] MACHINE Work Phone: [facility] 07-31-2024 14:59-0500 Body mass index (BMI) [Ratio] 34.28 kg/m2 Angel Luis Groves SET UP [employer] MACHINE Work Phone: [facility] 07-31-2024 14:59-0500 Body temperature 96.21 [degF] Angel Luis Groves SET UP ME[employer] MACHINE Work Phone: [facility] 07-31-2024 14:59-0500 Body weight 93.44 kg Angel Luis Groves SET UP ME[employer] MACHINE Work Phone: [facility] 07-31-2024 14:59-0500 Diastolic blood pressure 62 mm[Hg] Angel Luis Groves SET UP ME[employer] MACHINE Work Phone: [facility] 07-31-2024 14:59-0500 Heart rate 83 /min Angel Luis Groves SET UP [employer] MACHINE Work Phone: [facility] 07-31-2024 14:59-0500 Respiratory rate 22 /min Angel Luis Groves SET UP ME[employer] MACHINE Work Phone: [facility] 07-31-2024 14:59-0500 SaO2% (BldA) [Mass fraction] 98 % Angel Luis Groves SET UP ME[employer] MACHINE Work Phone: [facility] 07-31-2024 14:59-0500 Systolic blood pressure 100 mm[Hg] Angel Luis Groves SET UP [employer] MACHINE Work Phone: [facility] 04-10-2024 15:56-0400 Body height 165.1 cm Angel Luis Groves SET UP [employer] MACHINE Work Phone: [facility] 04-10-2024 15:56-0400 Body mass index (BMI) [Ratio] 33.61 kg/m2 Angel Luis Groves SET UP [employer] MACHINE Work Phone: [facility] 04-10-2024 15:56-0400 Body temperature 98.29 [degF] Angel Luis Groves SET UP [employer] MACHINE Work Phone: [facility] 04-10-2024 15:56-0400 Body weight 91.63 kg Angel Luis Groves SET UP [employer] MACHINE Work Phone: [facility] 04-10-2024 15:56-0400 Diastolic blood pressure 68 mm[Hg] Angel Luis Groves SET UP [employer] MACHINE Work Phone: [facility] 04-10-2024 15:56-0400 Heart rate 67 /min Angel Luis Groves SET UP ME[employer] MACHINE Work Phone: [facility] Comment on above: 98% O2 04-10-2024 15:56-0400 Systolic blood pressure 100 mm[Hg] Angel Luis Groves SET UP [employer] MACHINE Work Phone: [facility] 03-18-2024 15:06-0400 Blood Pressure Location Ron Palomares [facility] 03-18-2024 15:06-0400 Diastolic blood pressure 69 mm[Hg] Ron Palomares [facility] 03-18-2024 15:06-0400 Heart rate 85 /min Ron Palomares [facility] 03-18-2024 15:06-0400 Respiratory rate 16 /min Ron Palomares [facility] 03-18-2024 15:06-0400 Systolic blood pressure 107 mm[Hg] Ron Palomares [facility] 03-12-2024 15:46-0400 Body height 165.1 cm Angel Luis Groves SET UP [employer] MACHINE Work Phone: [facility] 03-12-2024 15:46-0400 Body mass index (BMI) [Ratio] 33.28 kg/m2 Angel Luis Groves SET UP [employer] MACHINE Work Phone: [facility] 03-12-2024 15:46-0400 Body temperature 98.01 [degF] Angel Luis Groves SET UP [employer] MACHINE Work Phone: [facility] 03-12-2024 15:46-0400 Body weight 90.72 kg Angel Luis Groves SET UP [employer] MACHINE Work Phone: [facility] 03-12-2024 15:46-0400 Diastolic blood pressure 70 mm[Hg] Angel Luis Groves SET UP [employer] MACHINE Work Phone: [facility] 03-12-2024 15:46-0400 Heart rate 71 /min Angel Luis Groves SET UP [employer] MACHINE Work Phone: [facility] Comment on above: 99% O2 03-12-2024 15:46-0400 Systolic blood pressure 100 mm[Hg] Angel Luis Groves SET UP [employer] MACHINE Work Phone: [facility] 06-07-2023 16:03-0500 Blood Pressure Location Segun HOLLOWAY [facility] [place] 06-07-2023 16:03-0500 Diastolic blood pressure 88 mm[Hg] Segun HOLLOWAY [facility] [place] 06-07-2023 16:03-0500 Heart rate 72 /min Segun NILL [facility] [place] 06-07-2023 16:03-0500 Respiratory rate 16 /min Segun NILL [facility] [place] 06-07-2023 16:03-0500 Systolic blood pressure 130 mm[Hg] Segun WILLARDL [facility] [place] 08-30-2021 13:00-0500 Body height 165.1 cm Kristin Ginty Other [facility] Other 08-30-2021 13:00-0500 Body mass index (BMI) [Ratio] 30.95 kg/m2 Kristin Ginty Other [facility] Other 08-30-2021 13:00-0500 Body temperature 98 [degF] Kristin Ginty Other [facility] Other 08-30-2021 13:00-0500 Body weight 84.37 kg Kristin Ginty Other [facility] Other 08-30-2021 13:00-0500 Respiratory rate 16 /min Kristin Ginty Other [facility] Other 08-30-2021 13:00-0500 SaO2% (BldA) [Mass fraction] 98 % Kristin Ginty Other [facility] Other Encounters Encounter Date Encounter Type Care Provider Facility Start: 02-26-2025 End: 02-27-2025 Clinisync Result Encounter Generic External Data Provider [facility] External Department Unsolicited Start: 02-26-2025 End: 02-27-2025 Clinisync Result Encounter Generic External Data Provider [facility] External Department Unsolicited Start: 02-26-2025 End: 02-26-2025 Refill Pascale Sumit SET UP [employer] MACHINE Work Phone: [facility] Comment on above: Gastroesophageal ref lux disease, unspecified whether esophagitis present (Primary Dx) Start: 02-25-2025 End: 02-25-2025 Office outpatient visit 25 minutes Pascale Arana SET UP MECH[employer] MACHINE Work Phone: [facility] Comment on above: Severe episode of re current major depressive disorder, without psychotic features (HCC) (Primary Dx); Cigarette nicotine dependence without complication; PTSD (post-traumatic stress disorder) ; Class 1 obesity due to excess calories without serious comorbidity with body mass index (BMI) of 32.0 to 32.9 in adult; Iron deficiency anemia secondary to inadequate dietary iron intake; Primary insomnia Start: 02-25-2025 End: 02-25-2025 ambulatory PASCALE SUMIT Not Available Start: 02-24-2025 End: 02-24-2025 ambulatory EUNICEPEDRITO DIAS Not Available Start: 02-24-2025 End: 02-24-2025 Office outpatient visit 15 minutes Eunice Dias [facility]- Work Phone: [facility] Comment on above: JESSIKA (generalized anx iety disorder) ; Severe episode of recurrent major depressive disorder, without psychotic features (HCC); PTSD (post-traumatic stress disorder) ; Insomnia, unspecified type; Sleep apnea, unspecified type Start: 02-24-2025 End: 02-24-2025 Bamboo flowsheet Eunice Dias [facility]- Work Phone: [facility] Start: 02-24-2025 End: 02-24-2025 Bamboo flowsheet Eunice Dias [facility]- Work Phone: [facility] Start: 02-24-2025 End: 02-24-2025 Chart abstracting Tania Asif MD Work Phone: [facility] Start: 02-20-2025 End: 02-20-2025 Refill Pascale Arana NP Work Phone: [facility] Comment on above: Psychophysiological insomnia Start: 02-19-2025 End: 02-19-2025 Clinisync Result Encounter Generic External Data Provider [facility] External Department Unsolicited Start: 02-19-2025 End: 02-19-2025 Clinisync Result Encounter Generic External Data Provider [facility] External Department Unsolicited Start: 02-11-2025 End: 02-12-2025 Refill Pascale Arana NP Work Phone: [facility] Comment on above: UTI (urinary tract i nfection), uncomplicated; Class 1 obesity due to excess calories without serious comorbidity in adult, unspecified BMI; BMI 32.0-32.9,adult Start: 02-06-2025 End: 02-06-2025 Office outpatient new 30 minutes Sheliadb Muniz DO Work Phone: [facility] Comment on above: Cystocele with secon d degree uterine prolapse (Primary Dx); History of reconstructive repair of rectocele; Urge urinary incontinence; Incomplete emptying of bladder; Atrophic vaginitis Start: 02-06-2025 End: 02-06-2025 Refill Pascale Arana NP Work Phone: [facility] Comment on above: URTI (acute upper re spiratory infection); Non-recurrent acute suppurative otitis media of both ears without spontaneous rupture of tympanic membranes Start: 02-05-2025 End: 02-05-2025 Clinisync Result Encounter Generic External Data Provider [facility] External Department Unsolicited Start: 02-05-2025 End: 02-05-2025 Clinisync Result Encounter Generic External Data Provider [facility] External Department Unsolicited Start: 01-22-2025 End: 01-22-2025 Bamboo flowsheet Eunice Dias [facility]- Work Phone: [facility] Start: 01-22-2025 End: 01-22-2025 Bamboo flowsheet Eunice Dias [facility]- Work Phone: [facility] Start: 01-22-2025 End: 01-22-2025 ambulatory EUNICE DIAS Not Available Start: 01-20-2025 End: 01-20-2025 ambulatory Flores Eden MD Facility:[facility] Start: 01-14-2025 End: 01-14-2025 Clinisync Result Encounter Pascale Arana [employer] Work Phone: [facility] External Department Unsolicited Start: 01-14-2025 End: 01-14-2025 Clinisync Result Encounter Pascale Arana [employer] Work Phone: [facility] External Department Unsolicited Start: 01-14-2025 End: 01-14-2025 Refill Pascale Arana [employer] Work Phone: [facility] Comment on above: URTI (acute upper re spiratory infection); Non-recurrent acute suppurative otitis media of both ears without spontaneous rupture of tympanic membranes Start: 01-07-2025 End: 01-07-2025 Orders Only Pascale Arana [employer] Work Phone: [facility] Comment on above: B12 deficiency (Prim radha Dx); Iron deficiency anemia secondary to inadequate dietary iron intake Start: 01-06-2025 End: 01-06-2025 Office outpatient visit 25 minutes Pascale Arana [employer] Work Phone: [facility] Comment on above: Bipolar disorder wit h severe depression (HCC) (Primary Dx); Gastroesophageal reflux disease, unspecified whether esophagitis present; Class 1 obesity due to excess calories without serious comorbidity with body mass index (BMI) of 32.0 to 32.9 in adult; Cigarette nicotine dependence without complication; Stress; Fibromyalgia; Psychophysiological insomnia Start: 01-06-2025 End: 01-06-2025 ambulatory PASCALE ARANA Not Available Start: 01-06-2025 End: 01-06-2025 Bamboo flowsheet Pascale Arana [employer] Work Phone: [facility] Start: 01-06-2025 End: 01-06-2025 Bamboo flowsheet Pascale Arana [employer] Work Phone: [facility] Start: 01-06-2025 End: 01-06-2025 Telephone encounter Pascale Sumit [employer] Work Phone: [facility] Start: 12-18-2024 End: 12-20-2024 Refill Pascale Arana [employer] Work Phone: [facility] Comment on above: URTI (acute upper re spiratory infection); Non-recurrent acute suppurative otitis media of both ears without spontaneous rupture of tympanic membranes Start: 11-20-2024 End: 11-20-2024 ambulatory PASCALE SUMIT Not Available Start: 11-20-2024 End: 11-20-2024 Patient encounter procedure Pascale Sumit [employer] Work Phone: [facility] Start: 11-20-2024 End: 11-20-2024 Periodic preventive med est patient 40-64yrs Pascale Arana [employer] Work Phone: [facility] Comment on above: Well woman exam with routine gynecological exam [...] unspecified BMI; Hot flashes due to menopause Start: 11-20-2024 End: 11-20-2024 Bamboo flowsheet Pascale Sumti [employer] Work Phone: [facility] Start: 11-20-2024 End: 11-26-2024 Bamboo flowsheet Pascale Arana [employer] Work Phone: [facility] Start: 11-20-2024 End: 11-26-2024 Clinisync Result Encounter Pascale Arana [employer] Work Phone: [facility] External Department Unsolicited Start: 11-18-2024 End: 11-20-2024 Refill Pascale Arana NP Work Phone: [facility] Comment on above: Overactive bladder d ue to prolapse of female genital organ Gastroesophageal ref lux disease, unspecified whether esophagitis present Psychophysiological insomnia Fibromyalgia Environmental and se asonal allergies URTI (acute upper re spiratory infection); Non-recurrent acute suppurative otitis media of both ears without spontaneous rupture of tympanic membranes Bipolar disorder wit h severe depression ([facility]) Start: 10-23-2024 End: 10-23-2024 Office outpatient visit 15 minutes Pascale Arana NP Work Phone: [facility] Comment on above: Iron deficiency anem ia secondary to inadequate dietary iron intake (Primary Dx); Class 1 obesity due to excess calories without serious comorbidity in adult, unspecified BMI; Cigarette nicotine dependence without complication; B12 deficiency; BMI 32.0-32.9,adult Start: 10-23-2024 End: 10-23-2024 Clinisync Result Encounter Pascale Arana NP Work Phone: [facility] External Department Unsolicited Start: 10-23-2024 End: 10-23-2024 Clinisync Result Encounter Pascale Arana NP Work Phone: [facility] External Department Unsolicited Start: 10-23-2024 End: 01-15-2025 Patient encounter procedure Molina De Anda MD Work Phone: [facility] Start: 10-23-2024 End: 10-23-2024 Refill oMlina De Anda MD Work Phone: [facility] Comment on above: URTI (acute upper re spiratory infection); Non-recurrent acute suppurative otitis media of both ears without spontaneous rupture of tympanic membranes Start: 10-03-2024 End: 10-03-2024 Clinisync Result Encounter Pascale Aarna NP Work Phone: [facility] External Department Unsolicited Start: 10-03-2024 End: 10-03-2024 Clinisync Result Encounter Pascale Arana NP Work Phone: [facility] External Department Unsolicited Start: 10-02-2024 End: 10-02-2024 Office outpatient visit 25 minutes Pascale Arana [employer] Work Phone: [facility] Comment on above: Gastroesophageal ref lux disease, [...] 34.0-34.9,adult Start: 10-02-2024 End: 10-02-2024 ambulatory PASCALE ARANA Not Available Start: 10-02-2024 End: 10-02-2024 Bamboo flowsheet Pascale Arana [employer] Work Phone: [facility] Start: 10-02-2024 End: 10-02-2024 Bamboo flowsheet Pascale Arana [employer] Work Phone: [facility] Start: 09-09-2024 End: 09-09-2024 Clinisync Result Encounter Generic External Data Provider [facility] External Department Unsolicited Start: 09-09-2024 End: 09-09-2024 Clinisync Result Encounter Generic External Data Provider [facility] External Department Unsolicited Start: 09-06-2024 End: 09-09-2024 Refill Pascale Arana [employer] Work Phone: [facility] Comment on above: Environmental and se asonal allergies Start: 09-05-2024 End: 09-05-2024 Clinisync Result Encounter Generic External Data Provider [facility] External Department Unsolicited Start: 09-05-2024 End: 09-05-2024 Clinisync Result Encounter Generic External Data Provider [facility] External Department Unsolicited Start: 09-04-2024 End: 09-04-2024 Office outpatient visit 10 minutes Angel Luis Groves [employer] Work Phone: [facility] Comment on above: BMI 33.0-33.9,adult (Primary Dx); Bipolar disorder with severe depression ([facility]); Fibromyalgia; Gastro-esophageal reflux disease without esophagitis; Esophageal reflux; BMI 34.0-34.9,adult; Psychophysiological insomnia; Overactive bladder due to prolapse of female genital organ Start: 09-04-2024 End: 09-04-2024 ambulatory ANGEL LIUS GROVES Not Available Start: 09-04-2024 End: 09-04-2024 Bamboo flowsheet Angel Luis Groves [employer] Work Phone: [facility] Start: 09-04-2024 End: 09-04-2024 Bamboo flowsheet Angel Luis Groves [employer] Work Phone: [facility] Start: 08-28-2024 End: 08-28-2024 Refill Angel Luis Groves [employer] Work Phone: [facility] Comment on above: Fibromyalgia Start: 08-14-2024 End: 08-14-2024 Refill Angel Luis Groves [employer] Work Phone: [facility] Comment on above: Fibromyalgia Start: 08-12-2024 End: 08-12-2024 Office outpatient visit 25 minutes Pascale Arana [employer] Work Phone: [facility] Comment on above: Acute non-recurrent maxillary sinusitis (Primary Dx); Cigarette nicotine dependence without complication; Class 1 obesity due to excess calories without serious comorbidity in adult, unspecified BMI; Environmental and seasonal allergies; Cutaneous abscess of abdominal wall Start: 08-12-2024 End: 08-12-2024 ambulatory PASCALE SUMIT Not Available Start: 08-12-2024 End: 08-12-2024 Bamboo flowsheet Pascale Arana [employer] Work Phone: [facility] Start: 08-12-2024 End: 08-14-2024 Bamboo flowsheet Pascale Arana [employer] Work Phone: [facility] Start: 08-12-2024 End: 08-14-2024 External Result Encounter Pascale Arana [employer] Work Phone: [facility] External Department Unsolicited Start: 08-05-2024 End: 08-06-2024 Orders Only Angel Luis Blackburnk [employer] Work Phone: [facility] Comment on above: B12 deficiency (Prim radha Dx); Iron deficiency anemia, unspecified iron deficiency anemia type Start: 08-01-2024 End: 08-01-2024 Clinisync Result Encounter Angel Luis Brittonzpatrick SET [employer] Work Phone: [facility] External Department Unsolicited Start: 08-01-2024 End: 08-01-2024 Clinisync Result Encounter Angel Luis Blackburnk [employer] Work Phone: [facility] External Department Unsolicited Start: 07-31-2024 End: 07-31-2024 Office outpatient visit 15 minutes Angel Luis Mathurtrick [employer] Work Phone: [facility] Comment on above: Iron deficiency anem ia secondary to inadequate dietary iron intake (Primary Dx); Fibromyalgia; Psychophysiological insomnia; BMI 34.0-34.9,adult Start: 07-31-2024 End: 07-31-2024 ambulatory ANGEL LUIS GROVES Not Available Start: 07-31-2024 End: 07-31-2024 Bamboo flowsheet Angel Luis Groves [employer] Work Phone: [facility] Start: 07-31-2024 End: 07-31-2024 Bamboo flowsheet Angel Luis Groves [employer] Work Phone: [facility] Start: 07-25-2024 End: 07-29-2024 Refill Angel Luis Brittonzpatrick [employer] Work Phone: [facility] Comment on above: Psychophysiological insomnia Start: 06-25-2024 End: 06-25-2024 Refill Angel Luis Groves [employer] Work Phone: [facility] Comment on above: Psychophysiological insomnia Start: 06-11-2024 End: 06-11-2024 Orders Only Angel Luis Groves [employer] Work Phone: [facility] Comment on above: Fibromyalgia (Primar y Dx) Start: 06-03-2024 End: 06-03-2024 Refill Angel Luis Groves [employer] Work Phone: [facility] Comment on above: Fibromyalgia Start: 05-27-2024 End: 05-27-2024 Orders Only Angel Luis Groves SET [employer] Work Phone: [facility] Comment on above: Psychophysiological insomnia (Primary Dx) Start: 04-18-2024 End: 04-18-2024 Patient encounter procedure MD Tyson Collazo Work Phone: [facility] [address] Work Phone: Start: 04-18-2024 End: 04-18-2024 ambulatory Tyson Collazo [facility] Work Phone: Start: 04-10-2024 End: 04-10-2024 Office outpatient visit 15 minutes Angel Luis Groves [employer] Work Phone: [facility] Comment on above: Psychophysiological insomnia (Primary Dx); Fibromyalgia; Constipation, unspecified constipation type Start: 04-10-2024 End: 04-10-2024 ambulatory ANGEL LUIS GROVES Not Available Start: 04-10-2024 End: 04-10-2024 Bamboo flowsheet Angel Luis Groves [employer] Work Phone: [facility] Start: 04-10-2024 End: 04-10-2024 Bamboo flowsheet Angel Luis Groves [employer] Work Phone: [facility] Start: 03-18-2024 End: 03-18-2024 [facility]ulatory [facility] Start: 03-18-2024 End: 03-18-2024 Patient encounter procedure Ron Palomares [facility] Start: 03-13-2024 End: 03-13-2024 Refill Angel Luis Groves [employer] Work Phone: [facility] Comment on above: Fibromyalgia (Primar y Dx) Start: 03-12-2024 End: 03-12-2024 Office outpatient visit 15 minutes Angel Luis Groves [employer] Work Phone: [facility] Comment on above: Constipation, unspec ified constipation type (Primary Dx); Fibromyalgia Start: 03-12-2024 End: 03-12-2024 ambulatory ANGEL LUIS GROVES Not Available Start: 03-12-2024 End: 03-12-2024 Bamboo flowsheet Angel Luis Groves [employer] Work Phone: [facility] Start: 03-12-2024 End: 03-12-2024 Bamboo flowsheet Angel Luis Groves SET [employer] Work Phone: [facility] Start: 03-07-2024 ambulatory [facility]res [facility] Start: 03-06-2024 End: 03-06-2024 ambulatory ANGEL LUIS GROVES Not Available Start: 02-28-2024 End: 02-28-2024 ambulatory ANGEL LUIS GROVES Not Available Start: 02-26-2024 Non-patient / Non-visit MD Roel Collazo Work Phone: [facility] Work Phone: Start: 08-25-2023 Casey Main MD Work Phone: [facility] Comment on above: Bipolar disorder wit h severe depression (CMS/HCC) Start: 07-19-2023 End: 07-19-2023 ambulatory Segun HOLLOWAY Facility:CD:[id number] Start: 06-07-2023 End: 06-07-2023 ambulatory Segun Denis AMIE Facility:[facility] Start: 06-07-2023 End: 06-07-2023 Patient encounter procedure Segun R NILL General Surgery Nill/Said Fredrick Start: 06-05-2023 ambulatory Ron Mojesicali Facilit y:[facility] Start: 05-18-2023 ambulatory Mohamad Mouchli Facilit y: [facility] Start: 04-07-2023 End: 04-07-[address] [facility] Start: 02-08-2023 ambulatory [facility] Start: 05-31-2022 End: 06-01-[address] TAMIKO NETTLES Facility:[facility] Start: 05-10-2022 End: 05-11-[address] ELLIOT JOSE Facility:[facility] Start: 04-19-2022 End: 04-20-2022 ambulatory KAJAL ESCOBEDO Facility:[facility] Start: 03-29-2022 End: 03-30-2022 ambulatory KAJAL ESCOBEDO Facility:[facility] Start: 03-10-2022 End: 03-10-2022 ambulatory TAWANA FOSTER Facility:[facility] Start: 03-07-2022 Encounter for prepro cedural cardiovascular examination TAWANA FOSTER [facility] Start: 03-07-2022 Encounter for prepro cedural laboratory examination TAWANA FOSTER [facility] Start: 03-03-2022 End: 03-04-2022 ambulatory TAWANA FOSTER Facility:[facility] Start: 03-03-2022 End: 03-04-2022 Encounter for preprocedural laboratory examination TAWANA FOSTER Facility:[facility] Start: 02-22-2022 End: 02-23-2022 ambulatory TAWANA FOSTER Facility:[facility] Start: 02-09-2022 End: 02-10-2022 ambulatory TAWANA FOSTER Facility:[facility] Start: 08-30-2021 End: 08-30-2021 ambulatory Kristin Quintana Other [employer] Other Start: 08-30-2021 Office outpatient vi sit 15 minutes Kristin Rosemariejarenjaye [facility] Start: 06-07-2021 End: 06-07-[address] ROBERTO SCOTT Facility: Start: 11-14-2018 End: 11-15-2018 Patient encounter procedure DEFAULT PHYSICIAN Facility:[facility] Procedures Date Procedure Procedure Detail Performing Clinician Start: 02-26-2025 SEGMENTAL BLOOD PRESSURE Generic Externa l Data Provider Start: 02-19-2025 XR FOOT LT MIN 3V Generic External Data Provider Start: 02-05-2025 MR LUMBAR SPINE WO CON Generic External Data Provider Start: 02-05-2025 Mri spinal canal cervical w/o contrast matrl Generic External Data Provider Start: 01-22-2025 End: 01-22-2025 Psychiatric diagnostic eval w/medical services JESSIKA (generalized anxiety disorder) Eunice Dias [facility]- Work Phone: Comment on above: JESSIKA (generalized anxiety disorder) ; Severe episode of recurrent major depressive disorder, without psychotic features (HCC); PTSD (post-traumatic stress disorder) ; Insomnia, unspecified type; Sleep apnea, unspecified type; Encounter for drug screening Start: 01-14-2025 ALL CBC WITH AUTO DIFF Pascale Arana [employer] Work Phone: Start: 11-20-2024 IGP,APTIMA HPV,AGE GDLN Pascale Arana [employer] Work Phone: Start: 11-20-2024 Microscopic observation [Identifier] in Cervix by Cyto stain Pascale Arana [employer] Work Phone: Start: 10-23-2024 MM TOMOSYNTHESIS SCREENING BI Pascale lui [employer] Work Phone: Start: 10-23-2024 Mammography Pascale Arana [employer] Work Phone: Start: 10-03-2024 ALL CBC WITH AUTO DIFF Pascale Sumit [employer] Work Phone: Start: 09-09-2024 CT FOOT LT WO CON Generic External Data Provider Start: 09-05-2024 XR FOOT LT MIN 3V Generic External Data Provider Start: 08-12-2024 CHRONIC WOUND/ULCER (HTRX) Pascale Arana NP Work Phone: Start: 08-01-2024 ALL CBC WITH AUTO DIFF Angel Luis Groves [employer] Work Phone: Start: 07-19-2023 Colonoscopy Shaikh Etelvina WELLER Work Phone: Start: 02-09-2023 Esophagogastroduodenoscopy Segun NILL Start: 07-24-2019 Bypass of stomach Segun NILL Start: 07-24-2018 Transurethral cystoscopy Segun NILL Start: 07-24-2017 Transurethral cystoscopy Segun NILL Cholecystectomy Segun NILL H/O: surgery History of reconstructive repair of rectocele Shelia Muniz DO Work Phone: Ligation of fallopian tube Lashaun HOLLOWAY Repair of cystocele Segun NILL Plan of Treatment Date Care Activity Detail Author Start: 07-19-2033 Screening for malign ant neoplasm [facility] colon [facility] Start: 11-21-2027 Screening for malign ant neoplasm of cervix [facility] Start: 02-06-2026 Adult BMI Screening Adult BMI Screen ing [facility] Start: 02-06-2026 Tobacco Screening Tobacco Screening [facility] Start: 10-23-2025 Screening for malign ant neoplasm of breast Mammogram [facility] Start: 04-30-2025 End: 04-30-2025 Patient encounter procedure 04/30/2025 4:30 PM EDT Office Visit [facility] [address] [place] [id number] Pascale Arana NP [address] [place] [id number] [facility] Start: 04-03-2025 End: 04-03-2025 Telemedicine consultation with patient 04/03/2025 9:00 AM EDT Telemedicine [facility] [address] [place] [address] [facility]unice Dias, [facility] [address] [place] [id number] [facility] Start: 04-02-2025 End: 04-02-2025 Patient encounter procedure 04/02/2025 3:00 PM EDT Office Visit [facility] [address] [facility] [address] [place] [address] Tania Asif MD [address] [place] [address] [facility] Start: 03-24-2025 [facility] Start: 03-06-2025 End: 03-06-2025 Social Work [facility] Start: 02-25-2025 End: 02-25-2026 CBC W Auto Differential panel - Blood CBC and differential Lab Routine Iron deficiency anemia secondary to inadequate dietary iron intake Expected: 02/25/2025 (Approximate), Expires: 02/25/2026 [facility] Work Phone: Comment on above: Expected: 02/25/2025 (Approximate), Expires: 02/25/2026 Start: 02-25-2025 End: 02-25-2026 Iron and Iron binding capacity panel - Serum or Plasma Iron level Lab Routine Iron deficiency anemia secondary to inadequate dietary iron intake Expected: 02/25/2025 (Approximate), Expires: 02/25/2026 [facility] Comment on above: Expected: 02/25/2025 (Approximate), Expires: 02/25/2026 Start: 02-25-2025 End: 02-25-2025 Patient encounter procedure 02/25/2025 11:30 AM EDT Office Visit [facility] [address] [place] [address] Pascale Arana, SET UP [employer] [address] [place] [id number] [facility] Start: 02-24-2025 End: 02-24-2025 Patient encounter procedure [facility] Start: 02-05-2025 End: 02-05-2025 Patient encounter procedure 02/05/2025 3:20 PM EDT Office Visit [facility] [address] [place] [address] Pascale Arana, SET UP [employer] [address] [place] [phone] [facility] Start: 01-22-2025 End: 01-22-2025 Patient encounter procedure [facility] Comment on above: Bipolar disorder wit h severe depression (HCC) Start: 01-07-2025 End: 01-07-2026 CBC W Auto Differential panel - Blood CBC and differential Lab Routine Iron deficiency anemia secondary to inadequate dietary iron intake Expected: 01/07/2025 (Approximate), Expires: 01/07/2026 [facility] Work Phone: Comment on above: Expected: 01/07/2025 (Approximate), Expires: 01/07/2026 Start: 01-07-2025 End: 01-07-2026 Cobalamin (Vitamin B12) [Mass/volume] in Serum or Plasma Vitamin B12 Lab Routine B12 deficiency Iron deficiency anemia secondary to inadequate dietary iron intake Expected: 01/07/2025 (Approximate), Expires: 01/07/2026 [facility] Comment on above: Expected: 01/07/2025 (Approximate), Expires: 01/07/2026 Start: 01-07-2025 End: 01-07-2026 Ferritin [Mass/volume] in Serum or Plasma Ferritin Lab Routine Iron deficiency anemia secondary to inadequate dietary iron intake Expected: 01/07/2025 (Approximate), Expires: 01/07/2026 [facility] Comment on above: Expected: 01/07/2025 (Approximate), Expires: 01/07/2026 Start: 01-07-2025 End: 01-07-2026 Iron + transferrin + TIBC Iron + transferrin + TIBC Lab Routine Iron deficiency anemia secondary to inadequate dietary iron intake Expected: 01/07/2025 (Approximate), Expires: 01/07/2026 [facility] Comment on above: Expected: 01/07/2025 (Approximate), Expires: 01/07/2026 Start: 01-06-2025 End: 01-06-2025 Patient encounter procedure [facility] Comment on above: Gastroesophageal ref lux disease, unspecified whether esophagitis present (Primary Dx); Class 1 obesity due to excess calories without serious comorbidity with body mass index (BMI) of 32.0 to 32.9 in adult; Cigarette nicotine dependence without complication Start: 11-20-2024 End: 11-20-2024 Patient encounter procedure 11/20/2024 3:20 PM EDT Office Visit [facility] [address] [place] [phone] Pascale Arana, MARY JO [address] [place] [phone] [facility] Start: 11-20-2024 End: 11-20-2025 THIN PREP TIS PAP AND HR HPV DNA THIN PREP TIS PAP AND HR HPV DNA Pathology and Cytology Routine Well woman exam with routine gynecological exam Expected: 11/20/2024 (Approximate), Expires: 11/20/2025 [facility] Work Phone: Comment on above: Expected: 11/20/2024 (Approximate), Expires: 11/20/2025 Start: 10-23-2024 End: 10-23-2024 Patient encounter procedure 10/23/2024 5:30 PM EDT Procedure Visit [facility] [address] [place] [phone] Pascale Arana, SET UP [employer] [address] [place] [phone] [facility] Start: 10-07-2024 Influenza vaccination Influenza Vacc ine (#1) [facility] Comment on above: Postponed from 03/24 (Patient Refused) Start: 10-04-2024 End: 08-06-2025 CBC W Auto Differential panel - Blood CBC and differential Lab Routine B12 deficiency Iron deficiency anemia, unspecified iron deficiency anemia type Expected: 10/04/2024 (Approximate), Expires: 08/06/2025 [facility] Work Phone: Comment on above: Expected: 10/04/2024 (Approximate), Expires: 08/06/2025 Start: 10-04-2024 End: 08-06-2025 Cobalamin (Vitamin B12) [Mass/volume] in Serum or Plasma Vitamin B12 Lab Routine B12 deficiency Iron deficiency anemia, unspecified iron deficiency anemia type Expected: 10/04/2024 (Approximate), Expires: 08/06/2025 [facility] Comment on above: Expected: 10/04/2024 (Approximate), Expires: 08/06/2025 Start: 10-04-2024 End: 08-06-2025 Ferritin [Mass/volume] in Serum or Plasma Ferritin Lab Routine B12 deficiency Iron deficiency anemia, unspecified iron deficiency anemia type Expected: 10/04/2024 (Approximate), Expires: 08/06/2025 [facility] Comment on above: Expected: 10/04/2024 (Approximate), Expires: 08/06/2025 Start: 10-04-2024 End: 08-06-2025 Iron + transferrin + TIBC Iron + transferrin + TIBC Lab Routine B12 deficiency Iron deficiency anemia, unspecified iron deficiency anemia type Expected: 10/04/2024 (Approximate), Expires: 08/06/2025 [facility] Comment on above: Expected: 10/04/2024 (Approximate), Expires: 08/06/2025 Start: 10-02-2024 End: 10-02-2024 Patient encounter procedure [facility] Comment on above: Class 1 obesity due [...] B12 deficiency Expected: 10/02/2024 (Approximate), Expires: 10/02/2025 [facility] Comment on above: Expected: 10/02/2024 (Approximate), Expires: 10/02/2025 Start: 10-02-2024 End: 10-02-2025 Cobalamin (Vitamin B12) [Mass/volume] in Serum or Plasma Vitamin B12 Lab Routine B12 deficiency Expected: 10/02/2024 (Approximate), Expires: 10/02/2025 [facility] Comment on above: Expected: 10/02/2024 (Approximate), Expires: 10/02/2025 Start: 10-02-2024 End: 10-02-2025 Ferritin [Mass/volume] in Serum or Plasma Ferritin Lab Routine Iron deficiency anemia secondary to inadequate dietary iron intake Expected: 10/02/2024 (Approximate), Expires: 10/02/2025 [facility] Comment on above: Expected: 10/02/2024 (Approximate), Expires: 10/02/2025 Start: 10-02-2024 End: 10-02-2025 Iron + transferrin + TIBC Iron + transferrin + TIBC Lab Routine Iron deficiency anemia secondary to inadequate dietary iron intake Expected: 10/02/2024 (Approximate), Expires: 10/02/2025 [facility] Comment on above: Expected: 10/02/2024 (Approximate), Expires: 10/02/2025 Start: 10-02-2024 End: 12-02-2025 MG Breast - bilateral Screening Bilateral screening mammogram Imaging Routine Encounter for screening mammogram for malignant neoplasm of breast Expected: 10/02/2024 (Approximate), Expires: 12/02/2025 [facility] Work Phone: Comment on above: Expected: 10/02/2024 (Approximate), Expires: 12/02/2025 Start: 09-04-2024 End: 09-04-2024 Patient encounter procedure [facility] Comment on above: Arrived Start: 08-12-2024 End: 08-12-2024 Patient encounter procedure 08/12/2024 4:00 PM EST Office Visit [facility] [address] [place] [phone] Pascale Arana NP [address] [place] [address] [facility] on above: Arrived Start: 08-12-2024 End: [...] iron intake Expected: 07/31/2024 (Approximate), Expires: 07/31/2025 [facility] Comment on above: Expected: 07/31/2024 (Approximate), [...] Visit [facility] [address] [place] [address] Angel Luis Groves, SET UP [employer] [address] [place] [address] [facility] Start: 06-05-2024 End: 06-05-2024 Patient encounter procedure 06/05/2024 5:30 PM EST Office Visit [facility] [address] [place] [phone] Angel Luis Groves, MARY JO [address] [place] [phone] [facility] Start: 04-10-2024 End: 04-10-2024 Patient encounter procedure [facility] Comment on above: Arrived Start: 03-24-2024 Influenza vaccination Influenza Vacc ine (#1) [facility] Start: 03-12-2024 End: 03-12-2024 Patient encounter procedure 03/12/2024 3:30 PM EDT Office Visit [facility] [address] [place] [address] Angel Luis Groves, SET UP [employer] [address] [place] [address] Arrived [facility] Comment on above: Arrived Start: 11-13-2023 End: 11-13-2023 Patient encounter procedure 11/13/2023 4:45 PM EDT Office Visit [facility] [address] [place] [phone] Shaikh Main MD [address] [place] [address] [facility] Start: 03-24-2023 Influenza vaccination Influenza Vacc ine (#1) [facility] Start: 2021 Administration of varicella zoster vaccine Zoster (Shingles) Vaccine (1 of 2) [facility] Start: 2011 Screening for malign ant neoplasm of breast Mammogram [facility] Start: 2001 Screening for malign ant neoplasm of cervix [facility] Start: 1992 Screening for malign ant neoplasm of cervix Pap Smear [facility] Start: 1990 DTaP,Tdap and Td Vac cines (1 - Tdap) DTaP,Tdap and Td Vaccines (1 - Tdap) [facility] Start: 1989 Adult BMI Follow Up Plan Adult BMI Follow Up Plan [facility] Start: 1983 Depression Screening Depression Scre ening [facility] Start: 1971 Screening for malign ant neoplasm of colon [facility] Start: 1971 Screening for malign ant neoplasm of lung Lung Cancer Screening Shared Decision Making [facility] Start: 1971 Tobacco Counseling Tobacco Counselin g [facility] CBC W Auto Different ial panel - Blood CBC and differential Lab Routine Iron deficiency anemia secondary to inadequate dietary iron intake Ordered: 07/31/2024 [facility] Work Phone: Comment on above: Ordered: 07/31/2024 DRUG TOX MONITORIGN 6 W/ CONF,URINE DRUG TOX MONITORIGN 6 W/ CONF,URINE Lab Routine Encounter for drug screening Ordered: 01/22/2025 [facility] Work Phone: Comment on above: Ordered: 01/22/2025 Sjogrens syndrome-A extractable nuclear Ab [Units/volume] in Serum [facility] Sjogrens syndrome-B extractable nuclear Ab [Units/volume] in [facility] Immunizations Immunization Date Immunization Notes Care Provider Fa cility NEGATED: Highlighted row has not occurred!06-07-2023 influenza virus vaccine, unspecified formulation Segun HOLLOWAY [facility] [place] Payers Date Payer Category Payer Private Health Insurance [id number] Self-pay 2009 Commercial Managed C are - POS [employer] [id number] 2009 Managed Care HMO (unspecified) [id number] 1971 Unknown [id number] 2.16.840.1.051679.3.57 9.2.647 1971 Unknown [id number] 2.16.840.1.134486.3.57 9.2.593 1971 Unknown [id number] 2.16.840.1.953969.3.57 9.2.593 1971 Unknown [id number] 2.16.840.1.326557.3.57 9.2.593 1971 Unknown [id number] 2.16.840.1.310349.3.57 9.2.593 1971 Unknown [id number] 2.16.840.1.269052.3.57 9.2.593 1971 Unknown [id number] 2.16.840.1.242904.3.57 9.2.593 1971 Unknown [id number] 2.16.840.1.795893.3.57 9.2.593 1971 Unknown [id number] 2.16.840.1.317503.3.57 9.2.593 1971 Unknown [id number] 2.16.840.1.376608.3.57 9.2.593 1971 Unknown [id number] 2.16.840.1.637757.3.57 9.2.727 1971 Unknown [id number] 2.16.840.1.182444.3.57 9.2.727 1971 Unknown [id number] 2.16.840.1.136050.3.57 9.2.727 1971 Unknown [id number] 2.16.840.1.196454.3.57 9.2.727 1971 Unknown [id number] 2.16.840.1.774229.3.57 9.2.727 1971 Unknown [id number] 2.16.840.1.704503.3.57 9.2.196 1971 Unknown [id number] 2.16.840.1.110949.3.57 9.2.1286 1971 Unknown [id number] 2.16.840.1.958046.3.57 9.2.1259 1971 Unknown [id number] 2.16.840.1.402155.3.57 9.2.1259 1971 Unknown [id number] 2.16.840.1.970315.3.57 9.2.1259 1971 Unknown [id number] 2.16.840.1.418141.3.57 9.2.1259 1971 Unknown [id number] 2.16.840.1.534626.3.57 9.2.1259 1971 Unknown [id number] 2.16.840.1.030694.3.57 9.2.1259 1971 Unknown [id number] 2.16.840.1.145438.3.57 9.2.1259 1971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 1500. ). HPI IS here today for one week follow-up for constipation. 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 Went on vacation to in [facility] in [place] for the weekend and had X3 BM's. Denies blood in stool. States she has been stressed recentlty and feels being away heloped her relax and she was finally able to pass BM. Sees GI in [place] on Sunday 03/18 @ 3pm. Still has [...] GI next week. documented in this encounter [facility] 03-12-2024 Instructions Angel Luis Groves NP - 03/12/2024 3:30 PM EDT Referral sent to Rheumatology- Dr. Muller in [place], [place]- they will call you! Have mammogram completed. Call if you need anything! documented in this encounter [facility] 06-07-2023 Note Chief Complaint consultation for colonoscopy HPI Staff 53 year old female presents on consultation from Dr. Bustamante for colonoscopy. Patient hospitalized in January with HGB of 4.8. At that time, patient was experiencing profound fatigue, dizziness and SOB. EGD was completed and normal. Patient left AMA prior to colonoscopy being completed. States symptoms have resolved. H/H completed 10/- 9.3/30.8. She is taking Ferrous Sulfate 325mg [...] fibromyalgia, referred for severe anemia, admitted to [facility] in January with hb of 5; received [...] Cap-DR, 30 mg= (more content not included)... [facility] Comment on above: Result Comment: Elec tronically Signed By: AMIE WELLER, Segun Graham\Date and Time Signed: 06/07/23 17:17 EST 06-07-2023 Evaluation + Plan note Diagnostic Tests PendingIron Level 06/07/23Ferritin 06/07/23Vitamin B12 Level 06/07/23 [facility] [place] 04-07-2023 Note Cardiology Clinic No te Subjective [...] -Resolved, likely exacerbated (more content not included)... [facility] 04-07-2023 Note Patient here for 2 [...] All other systems reviewed and are negative. [facility] 02-08-2023 Note Cardiovascular Medic [facility] SUBJECTIVE Chief Complaint Patient presents [...] in about 6 weeks (around 03/22/2023). Carol Webb APRN-PRESIDENT & CEO [employer] [facility] Cardiovascular Medicine [facility] 05-31-2022 Note PROCEDURE: XR FOOT L [...] authenticated by: TAMIKO NETTLES Date: 2022-05-31 20:30 [facility] 05-11-2022 Note PROCEDURE: XR FOOT [...] authenticated by: ELLIOT JOSE Date: 2022-05-11 16:14 [facility] 04-19-2022 Note PROCEDURE: XR FOOT [...] authenticated by: TAMIKO NETTLES Date: 2022-04-19 18:16 [facility] 03-30-2022 Note PROCEDURE: XR FOOT [...] authenticated by: TAMIKO NETTLES Date: 2022-03-30 06:41 [facility] 03-11-2022 Note PROCEDURE: XR FOOT [...] authenticated by: ELLIOT JOSE Date: 2022-03-11 08:26 [facility] 03-11-2022 Note PROCEDURE: XR FOOT L T 2V HISTORY: Pain COMPARISON: XR foot left 02/09/2022 FINDINGS: BONES:Multiple intraoperative images demonstrate mechanical fusion of the second and third tarsal-metatarsal joints. SOFT TISSUES:Expected intraoperative findings. EFFUSION:None visible. OTHER: Negative. IMPRESSION: 1. Mechanical fusion of second and third tarsal-metatarsal joints. Electronically authenticated by: ELLIOT JOSE Date: 2022-03-11 07:55 [facility] 02-10-2022 Note PROCEDURE: XR FOOT [...] by: TAMIKO NETTLES Date: 2022-02-10 07:37 [facility] 08-30-2021 Evaluation note Encounter Date Diagnosis [...] Patient care instructions given in writting by [facility] Home document [employer] Other Evaluation note* Diagnosis Bipolar disorder with severe depression (CMS/HCC) [facility] noteNo assessment information availableKet[facility] Health Work Phone: Evaluation note* Diagnosis Breast screening- [...] gastric bypass Bipolar disorder with severe depression ([facility]) Encounter for screening mammogram for breast cancer- Primary Screening for diabetes mellitus Seizure-like activity ([facility]) Fluid level behind tympanic [...] in full remission, most recent episode depressed ([facility]) Psychophysiological insomnia Persistent disorder of initiating or maintaining sleep B12 deficiency Fibromyalgia Unspecified myalgia and myositis Screening mammogram for breast cancer Bipolar disorder, current episode depressed, severe, without psychotic features ([facility]) Psychophysiological insomnia Persistent disorder of initiating or maintaining sleep Fibromyalgia Unspecified myalgia and myositis Iron deficiency anemia secondary to inadequate dietary iron intake B12 deficiency B12 deficiency- Primary Bipolar disorder, current episode depressed, severe, without psychotic features ([facility]/HCC) Psychophysiological insomnia Persistent disorder of initiating [...] gastric bypass Bipolar disorder with severe depression ([facility]) Encounter for screening mammogram for breast cancer- Primary Screening for diabetes mellitus Seizure-like activity ([facility]) Fluid level behind tympanic [...] gastric bypass Bipolar disorder with severe depression ([facility]) Encounter for screening mammogram for breast cancer- Primary Screening for diabetes mellitus Seizure-like activity ([facility]) Fluid level behind tympanic [...] in full remission, most recent episode depressed ([facility]/HCC) Psychophysiological insomnia Persistent disorder of initiating [...] myalgia and myositis documented in this encounter [facility]* Diagnosis Breast screening- Primary [...] Primary Screening for diabetes mellitus Seizure-like activity ([facility]/HCC) Fluid level behind tympanic membrane of both [...] current episode depressed, severe, without psychotic features ([facility]/HCC) Psychophysiological insomnia Persistent disorder of initiating [...] gastric bypass Bipolar disorder with severe depression ([facility]) Encounter for screening mammogram for breast cancer- Primary Screening for diabetes mellitus Seizure-like activity ([facility]) Fluid level behind tympanic [...] 33.0-33.9,adult- Primary Bipolar disorder with severe depression ([facility]) Fibromyalgia Unspecified myalgia and [...] in full remission, most recent episode depressed ([facility]) Psychophysiological insomnia Persistent disorder of initiating or maintaining sleep B12 deficiency Fibromyalgia Unspecified myalgia and myositis Screening mammogram for breast cancer Bipolar disorder with severe depression (CMS/HCC)- Primary Psychophysiological insomnia Persistent disorder of initiating or maintaining sleep Fibromyalgia Unspecified myalgia and myositis Iron deficiency anemia secondary to inadequate dietary iron intake B12 deficiency Bipolar disorder, current episode depressed, severe, without psychotic features (CMS/HCC) B12 deficiency- Primary Bipolar disorder, current episode depressed, severe, without psychotic features (CMS/HCC) Psychophysiological insomnia Persistent disorder of initiating or maintaining sleep Iron deficiency anemia secondary to inadequate dietary iron intake URTI (acute upper respiratory infection) Acute upper respiratory infections of unspecified site Bipolar disorder with severe depression (CMS/HCC) Antibiotic-induced yeast infection Cutaneous abscess of groin [...] prolapse of female genital organ BMI 34.0-34.9,adult Class 1 obesity due to excess calories without serious comorbidity in adult, unspecified BMI- Primary Cigarette nicotine dependence without complication Well woman exam with routine gynecological exam Routine gynecological examination URTI (acute upper respiratory infection) Acute upper respiratory infections of unspecified site Non-recurrent acute suppurative otitis media of both ears without spontaneous rupture of tympanic membranes documented in this encounter [facility] HealthcareEvaluation note* Diagnosis Breast screening- Primary Breast screening, unspecified Bipolar disorder, in full remission, most recent episode depressed (CMS/HCC) Psychophysiological insomnia Persistent disorder of initiating or maintaining sleep B12 deficiency Fibromyalgia Unspecified myalgia and myositis Screening mammogram for breast cancer Bipolar disorder with severe depression (CMS/HCC)- Primary Psychophysiological insomnia Persistent disorder of initiating or maintaining sleep Fibromyalgia Unspecified myalgia and myositis Iron deficiency anemia secondary to inadequate dietary iron intake B12 deficiency Bipolar disorder, current episode depressed, severe, without psychotic features (CMS/HCC) B12 deficiency- Primary Bipolar disorder, current episode depressed, severe, without psychotic features (CMS/HCC) Psychophysiological insomnia Persistent disorder of initiating or maintaining sleep Iron deficiency anemia secondary to inadequate dietary iron intake URTI (acute upper respiratory infection) Acute upper respiratory infections of unspecified site Bipolar disorder with severe depression (CMS/HCC) Antibiotic-induced yeast infection Cutaneous abscess of groin [...] seasonal allergies Cutaneous abscess of abdominal wall Gastroesophageal reflux disease, unspecified whether esophagitis present- [...] prolapse of female genital organ BMI 34.0-34.9,adult Iron deficiency anemia secondary to inadequate dietary iron intake- Primary Class 1 obesity due to excess calories without serious comorbidity in adult, unspecified BMI Cigarette nicotine dependence without complication B12 deficiency BMI 32.0-32.9,adult documented [facility]* Diagnosis Breast screening- Primary Breast screening, unspecified Bipolar disorder, in full remission, most recent episode depressed (CMS/HCC) Psychophysiological insomnia Persistent disorder of initiating or maintaining sleep B12 deficiency Fibromyalgia Unspecified myalgia and myositis Screening mammogram for breast cancer Bipolar disorder with severe depression (CMS/HCC)- Primary Psychophysiological insomnia Persistent disorder of initiating or maintaining sleep Fibromyalgia Unspecified myalgia and myositis Iron deficiency anemia secondary to inadequate dietary iron intake B12 deficiency Bipolar disorder, current episode depressed, severe, without psychotic features (CMS/HCC) B12 deficiency- Primary Bipolar disorder, current episode depressed, severe, without psychotic features (CMS/HCC) Psychophysiological insomnia Persistent disorder of initiating or maintaining sleep Iron deficiency anemia secondary to inadequate dietary iron intake URTI (acute upper respiratory infection) Acute upper respiratory infections of unspecified site Bipolar disorder with severe depression (CMS/HCC) Antibiotic-induced yeast infection Cutaneous abscess of groin [...] seasonal allergies Cutaneous abscess of abdominal wall Gastroesophageal reflux disease, unspecified whether esophagitis present- [...] prolapse of female genital organ BMI 34.0-34.9,adult Iron deficiency anemia secondary to inadequate dietary iron intake- Primary Class 1 obesity due to excess calories without serious comorbidity in adult, unspecified BMI Cigarette nicotine dependence without complication B12 deficiency BMI 32.0-32.9,adult Overactive bladder due to prolapse of female genital organ documented [facility]* Diagnosis Breast screening- Primary Breast screening, unspecified Bipolar disorder, in full remission, most recent episode depressed (CMS/HCC) Psychophysiological insomnia Persistent disorder of initiating or maintaining sleep B12 deficiency Fibromyalgia Unspecified myalgia and myositis Screening mammogram for breast cancer Bipolar disorder with severe depression (CMS/HCC)- Primary Psychophysiological insomnia Persistent disorder of initiating or maintaining sleep Fibromyalgia Unspecified myalgia and myositis Iron deficiency anemia secondary to inadequate dietary iron intake B12 deficiency Bipolar disorder, current episode depressed, severe, without psychotic features (CMS/HCC) B12 deficiency- Primary Bipolar disorder, current episode depressed, severe, without psychotic features (CMS/HCC) Psychophysiological insomnia Persistent disorder of initiating or maintaining sleep Iron deficiency anemia secondary to inadequate dietary iron intake URTI (acute upper respiratory infection) Acute upper respiratory infections of unspecified site Bipolar disorder with severe depression (CMS/HCC) Antibiotic-induced yeast infection Cutaneous abscess of groin B12 deficiency- Primary Psychophysiological insomnia Persistent disorder of initiating or maintaining sleep Iron deficiency anemia secondary to inadequate dietary iron intake History of gastric bypass Bipolar disorder with severe depression ([facility]/HCC) Encounter for screening mammogram for breast cancer- Primary Screening for diabetes mellitus Seizure-like activity ([facility]) Fluid level behind tympanic [...] seasonal allergies Cutaneous abscess of abdominal wall Gastroesophageal reflux disease, unspecified whether esophagitis present- [...] prolapse of female genital organ BMI 34.0-34.9,adult Iron deficiency anemia secondary to inadequate dietary iron intake- Primary Class 1 obesity due to excess calories without serious comorbidity in adult, unspecified BMI Cigarette nicotine dependence without complication B12 deficiency BMI 32.0-32.9,adult Gastroesophageal reflux disease, unspecified whether esophagitis present documented in this encounter [facility]Evaluation note* Diagnosis Breast screening- Primary Breast screening, unspecified Bipolar disorder, in full remission, most recent episode depressed ([facility]) Psychophysiological insomnia Persistent disorder of initiating or maintaining sleep B12 deficiency Fibromyalgia Unspecified myalgia and myositis Screening mammogram for breast cancer Bipolar disorder with severe depression ([facility]/HCC)- Primary Psychophysiological insomnia Persistent disorder of initiating or maintaining sleep Fibromyalgia Unspecified myalgia and myositis Iron deficiency anemia secondary to inadequate dietary iron intake B12 deficiency Bipolar disorder, current episode depressed, severe, without psychotic features ([facility]/HCC) B12 deficiency- Primary Bipolar disorder, current episode depressed, severe, without psychotic features ([facility]) Psychophysiological insomnia Persistent disorder of initiating or maintaining sleep Iron deficiency anemia secondary to inadequate dietary iron intake URTI (acute upper respiratory infection) Acute upper respiratory infections of unspecified site Bipolar disorder with severe depression ([facility]) Antibiotic-induced yeast infection Cutaneous abscess of groin B12 deficiency- Primary Psychophysiological insomnia Persistent disorder of initiating or maintaining sleep Iron deficiency anemia secondary to inadequate dietary iron intake History of gastric bypass Bipolar disorder with severe depression ([facility]) Encounter for screening mammogram for breast cancer- Primary Screening for diabetes mellitus Seizure-like activity ([facility]) Fluid level behind tympanic [...] seasonal allergies Cutaneous abscess of abdominal wall Gastroesophageal reflux disease, unspecified whether esophagitis present- [...] prolapse of female genital organ BMI 34.0-34.9,adult Iron deficiency anemia secondary to inadequate dietary iron intake- Primary Class 1 obesity due to excess calories without serious comorbidity in adult, unspecified BMI Cigarette nicotine dependence without complication B12 deficiency BMI 32.0-32.9,adult Psychophysiological insomnia Persistent disorder of initiating or maintaining sleep documented in this encounter [facility]* Diagnosis Breast screening- Primary Breast screening, unspecified Bipolar disorder, in full remission, most recent episode depressed ([facility]) Psychophysiological insomnia Persistent disorder of initiating or maintaining sleep B12 deficiency Fibromyalgia Unspecified myalgia and myositis Screening mammogram for breast cancer Bipolar disorder with severe depression (CMS/HCC)- Primary Psychophysiological insomnia Persistent disorder of initiating or maintaining sleep Fibromyalgia Unspecified myalgia and myositis Iron deficiency anemia secondary to inadequate dietary iron intake B12 deficiency Bipolar disorder, current episode depressed, severe, without psychotic features (CMS/HCC) B12 deficiency- Primary Bipolar disorder, current episode depressed, severe, without psychotic features (CMS/HCC) Psychophysiological insomnia Persistent disorder of initiating or maintaining sleep Iron deficiency anemia secondary to inadequate dietary iron intake URTI (acute upper respiratory infection) Acute upper respiratory infections of unspecified site Bipolar disorder with severe depression (CMS/HCC) Antibiotic-induced yeast infection Cutaneous abscess of groin [...] seasonal allergies Cutaneous abscess of abdominal wall Gastroesophageal reflux disease, unspecified whether esophagitis present- [...] prolapse of female genital organ BMI 34.0-34.9,adult Iron deficiency anemia secondary to inadequate dietary iron intake- Primary Class 1 obesity due to excess calories without serious comorbidity in adult, unspecified BMI Cigarette nicotine dependence without complication B12 deficiency BMI 32.0-32.9,adult Fibromyalgia Unspecified myalgia and myositis documented in this encounter [facility] HealthcareEvaluation note* Diagnosis Breast screening- Primary Breast screening, unspecified Bipolar disorder, in full remission, most recent episode depressed (CMS/HCC) Psychophysiological insomnia Persistent disorder of initiating or maintaining sleep B12 deficiency Fibromyalgia Unspecified myalgia and myositis Screening mammogram for breast cancer Bipolar disorder with severe depression (CMS/HCC)- Primary Psychophysiological insomnia Persistent disorder of initiating or maintaining sleep Fibromyalgia Unspecified myalgia and myositis Iron deficiency anemia secondary to inadequate dietary iron intake B12 deficiency Bipolar disorder, current episode depressed, severe, without psychotic features (CMS/HCC) B12 deficiency- Primary Bipolar disorder, current episode depressed, severe, without psychotic features (CMS/HCC) Psychophysiological insomnia Persistent disorder of initiating or maintaining sleep Iron deficiency anemia secondary to inadequate dietary iron intake URTI (acute upper respiratory infection) Acute upper respiratory infections of unspecified site Bipolar disorder with severe depression (CMS/HCC) Antibiotic-induced yeast infection Cutaneous abscess of groin [...] seasonal allergies Cutaneous abscess of abdominal wall Gastroesophageal reflux disease, unspecified whether esophagitis present- [...] prolapse of female genital organ BMI 34.0-34.9,adult Iron deficiency anemia secondary to inadequate dietary iron intake- Primary Class 1 obesity due to excess calories without serious comorbidity in adult, unspecified BMI Cigarette nicotine dependence without complication B12 deficiency BMI 32.0-32.9,adult Environmental and seasonal allergies documented in this encounter [facility] HealthcareEvaluation note* Diagnosis Breast screening- Primary Breast screening, unspecified Bipolar disorder, in full remission, most recent episode depressed (CMS/HCC) Psychophysiological insomnia Persistent disorder of initiating or maintaining sleep B12 deficiency Fibromyalgia Unspecified myalgia and myositis Screening mammogram for breast cancer Bipolar disorder with severe depression (CMS/HCC)- Primary Psychophysiological insomnia Persistent disorder of initiating or maintaining sleep Fibromyalgia Unspecified myalgia and myositis Iron deficiency anemia secondary to inadequate dietary iron intake B12 deficiency Bipolar disorder, current episode depressed, severe, without psychotic features (CMS/HCC) B12 deficiency- Primary Bipolar disorder, current episode depressed, severe, without psychotic features (CMS/HCC) Psychophysiological insomnia Persistent disorder of initiating or maintaining sleep Iron deficiency anemia secondary to inadequate dietary iron intake URTI (acute upper respiratory infection) Acute upper respiratory infections of unspecified site Bipolar disorder with severe depression (CMS/HCC) Antibiotic-induced yeast infection Cutaneous abscess of groin [...] seasonal allergies Cutaneous abscess of abdominal wall Gastroesophageal reflux disease, unspecified whether esophagitis present- [...] prolapse of female genital organ BMI 34.0-34.9,adult Iron deficiency anemia secondary to inadequate dietary iron intake- Primary Class 1 obesity due to excess calories without serious comorbidity in adult, unspecified BMI Cigarette nicotine dependence without complication B12 deficiency BMI 32.0-32.9,adult URTI (acute upper respiratory infection) Acute upper respiratory infections of unspecified site Non-recurrent acute suppurative otitis media of both ears without spontaneous rupture of tympanic membranes documented in this encounter [facility] HealthcareEvaluation note* Diagnosis Breast screening- Primary Breast screening, unspecified Bipolar disorder, in full remission, most recent episode depressed (CMS/HCC) Psychophysiological insomnia Persistent disorder of initiating or maintaining sleep B12 deficiency Fibromyalgia Unspecified myalgia and myositis Screening mammogram for breast cancer Bipolar disorder with severe depression (CMS/HCC)- Primary Psychophysiological insomnia Persistent disorder of initiating or maintaining sleep Fibromyalgia Unspecified myalgia and myositis Iron deficiency anemia secondary to inadequate dietary iron intake B12 deficiency Bipolar disorder, current episode depressed, severe, without psychotic features (CMS/HCC) B12 deficiency- Primary Bipolar disorder, current episode depressed, severe, without psychotic features (CMS/HCC) Psychophysiological insomnia Persistent disorder of initiating or maintaining sleep Iron deficiency anemia secondary to inadequate dietary iron intake URTI (acute upper respiratory infection) Acute upper respiratory infections of unspecified site Bipolar disorder with severe depression (CMS/HCC) Antibiotic-induced yeast infection Cutaneous abscess of groin [...] seasonal allergies Cutaneous abscess of abdominal wall Gastroesophageal reflux disease, unspecified whether esophagitis present- [...] prolapse of female genital organ BMI 34.0-34.9,adult Iron deficiency anemia secondary to inadequate dietary iron intake- Primary Class 1 obesity due to excess calories without serious comorbidity in adult, unspecified BMI Cigarette nicotine dependence without complication B12 deficiency BMI 32.0-32.9,adult Well woman exam with routine gynecological exam- Primary Routine gynecological examination Gastroesophageal reflux disease, unspecified whether esophagitis present BMI 32.0-32.9,adult Class 1 obesity due to excess calories without serious comorbidity in adult, unspecified BMI Iron deficiency anemia secondary to inadequate dietary iron intake Hot flashes due to menopause documented in this encounter [facility] HealthcareEvaluation note* Diagnosis Breast screening- Primary Breast screening, unspecified Bipolar disorder, in full remission, most recent episode depressed (CMS/HCC) Psychophysiological insomnia Persistent disorder of initiating or maintaining sleep B12 deficiency Fibromyalgia Unspecified myalgia and myositis Screening mammogram for breast cancer Bipolar disorder with severe depression (CMS/HCC)- Primary Psychophysiological insomnia Persistent disorder of initiating or maintaining sleep Fibromyalgia Unspecified myalgia and myositis Iron deficiency anemia secondary to inadequate dietary iron intake B12 deficiency Bipolar disorder, current episode depressed, severe, without psychotic features (CMS/HCC) B12 deficiency- Primary Bipolar disorder, current episode depressed, severe, without psychotic features ([facility]) Psychophysiological insomnia Persistent disorder of initiating or maintaining sleep Iron deficiency anemia secondary to inadequate dietary iron intake URTI (acute upper respiratory infection) Acute upper respiratory infections of unspecified site Bipolar disorder with severe depression ([facility]/HCC) Antibiotic-induced yeast infection Cutaneous abscess of groin B12 deficiency- Primary Psychophysiological insomnia Persistent disorder of initiating or maintaining sleep Iron deficiency anemia secondary to inadequate dietary iron intake History of gastric bypass Bipolar disorder with severe depression ([facility]) Encounter for screening mammogram for breast cancer- Primary Screening for diabetes mellitus Seizure-like activity ([facility]) Fluid level behind tympanic [...] seasonal allergies Cutaneous abscess of abdominal wall Gastroesophageal reflux disease, unspecified whether esophagitis present- [...] prolapse of female genital organ BMI 34.0-34.9,adult Iron deficiency anemia secondary to inadequate dietary iron intake- Primary Class 1 obesity due to excess calories without serious comorbidity in adult, unspecified BMI Cigarette nicotine dependence without complication B12 deficiency BMI 32.0-32.9,adult Bipolar disorder with severe depression ([facility]) Well woman exam with routine gynecological exam- Primary Routine gynecological examination Gastroesophageal reflux disease, unspecified whether esophagitis present BMI 32.0-32.9,adult Class 1 obesity due to excess calories without serious comorbidity in adult, unspecified BMI Iron deficiency anemia secondary to inadequate dietary iron intake Hot flashes due to menopause documented in this encounter [facility]* Diagnosis Breast screening- Primary Breast screening, unspecified Bipolar disorder, in full remission, most recent episode depressed (CMS/HCC) Psychophysiological insomnia Persistent disorder of initiating or maintaining sleep B12 deficiency Fibromyalgia Unspecified myalgia and myositis Screening mammogram for breast cancer Bipolar disorder with severe depression (CMS/HCC)- Primary Psychophysiological insomnia Persistent disorder of initiating or maintaining sleep Fibromyalgia Unspecified myalgia and myositis Iron deficiency anemia secondary to inadequate dietary iron intake B12 deficiency Bipolar disorder, current episode depressed, severe, without psychotic features (CMS/HCC) B12 deficiency- Primary Bipolar disorder, current episode depressed, severe, without psychotic features (CMS/HCC) Psychophysiological insomnia Persistent disorder of initiating or maintaining sleep Iron deficiency anemia secondary to inadequate dietary iron intake URTI (acute upper respiratory infection) Acute upper respiratory infections of unspecified site Bipolar disorder with severe depression (CMS/HCC) Antibiotic-induced yeast infection Cutaneous abscess of groin [...] seasonal allergies Cutaneous abscess of abdominal wall Gastroesophageal reflux disease, unspecified whether esophagitis present- [...] prolapse of female genital organ BMI 34.0-34.9,adult Iron deficiency anemia secondary to inadequate dietary iron intake- Primary Class 1 obesity due to excess calories without serious comorbidity in adult, unspecified BMI Cigarette nicotine dependence without complication B12 deficiency BMI 32.0-32.9,adult Well woman exam with routine gynecological exam- Primary Routine gynecological examination Gastroesophageal reflux disease, unspecified whether esophagitis present BMI 32.0-32.9,adult Class 1 obesity due to excess calories without serious comorbidity in adult, unspecified BMI Iron deficiency anemia secondary to inadequate dietary iron intake Hot flashes due to menopause URTI (acute upper respiratory infection) Acute upper respiratory infections of unspecified site Non-recurrent acute suppurative otitis media of both ears without spontaneous rupture of tympanic membranes documented in this encounter [facility] HealthcareEvaluation note* Diagnosis Breast screening- Primary Breast screening, unspecified Bipolar disorder, in full remission, most recent episode depressed (HCC) Psychophysiological insomnia Persistent disorder of initiating or maintaining sleep B12 deficiency Fibromyalgia Unspecified myalgia and myositis Screening mammogram for breast cancer Bipolar disorder with severe depression (HCC)- Primary Psychophysiological insomnia Persistent disorder of initiating or maintaining sleep Fibromyalgia Unspecified myalgia and myositis Iron deficiency anemia secondary to inadequate dietary iron intake B12 deficiency Bipolar disorder, current episode depressed, severe, without psychotic features (HCC) B12 deficiency- Primary Bipolar disorder, current episode depressed, severe, without psychotic features (HCC) Psychophysiological insomnia Persistent disorder of initiating or maintaining sleep Iron deficiency anemia secondary to inadequate dietary iron intake URTI (acute upper respiratory infection) Acute upper respiratory infections of unspecified site Bipolar disorder with severe depression (HCC) Antibiotic-induced yeast infection Cutaneous abscess of groin B12 deficiency- Primary Psychophysiological insomnia Persistent disorder of initiating or maintaining sleep Iron deficiency anemia secondary to inadequate dietary iron intake History of gastric bypass Bipolar disorder with severe depression (HCC) Encounter for screening mammogram for breast cancer- Primary Screening for diabetes mellitus Seizure-like activity ([facility]) Fluid level behind tympanic [...] seasonal allergies Cutaneous abscess of abdominal wall Gastroesophageal reflux disease, unspecified whether esophagitis present- [...] prolapse of female genital organ BMI 34.0-34.9,adult Iron deficiency anemia secondary to inadequate dietary iron intake- Primary Class 1 obesity due to excess calories without serious comorbidity in adult, unspecified BMI Cigarette nicotine dependence without complication B12 deficiency BMI 32.0-32.9,adult Well woman exam with routine gynecological exam- Primary Routine gynecological examination Gastroesophageal reflux disease, unspecified whether esophagitis present BMI 32.0-32.9,adult Class 1 obesity due to excess calories without serious comorbidity in adult, unspecified BMI Iron deficiency anemia secondary to inadequate dietary iron intake Hot flashes due to menopause Bipolar disorder with severe depression (HCC)- Primary [...] in full remission, most recent episode depressed (HCC) Psychophysiological insomnia Persistent disorder of initiating or maintaining sleep B12 deficiency Fibromyalgia Unspecified myalgia and myositis Screening mammogram for breast cancer Bipolar disorder with severe depression (HCC)- Primary Psychophysiological insomnia Persistent disorder of initiating or maintaining sleep Fibromyalgia Unspecified myalgia and myositis Iron deficiency anemia secondary to inadequate dietary iron intake B12 deficiency Bipolar disorder, current episode depressed, severe, without psychotic features (HCC) B12 deficiency- Primary Bipolar disorder, current episode depressed, severe, without psychotic features (HCC) Psychophysiological insomnia Persistent disorder of initiating or maintaining sleep Iron deficiency anemia secondary to inadequate dietary iron intake URTI (acute upper respiratory infection) Acute upper respiratory infections of unspecified site Bipolar disorder with severe depression (HCC) Antibiotic-induced yeast infection Cutaneous abscess of groin B12 deficiency- Primary Psychophysiological insomnia Persistent disorder of initiating or maintaining sleep Iron deficiency anemia secondary to inadequate dietary iron intake History of gastric bypass Bipolar disorder with severe depression (HCC) Encounter for screening mammogram for breast cancer- Primary Screening for diabetes mellitus Seizure-like activity (HCC) Fluid level behind tympanic membrane of both [...] seasonal allergies Cutaneous abscess of abdominal wall Gastroesophageal reflux disease, unspecified whether esophagitis present- [...] prolapse of female genital organ BMI 34.0-34.9,adult Iron deficiency anemia secondary to inadequate dietary iron intake- Primary Class 1 obesity due to excess calories without serious comorbidity in adult, unspecified BMI Cigarette nicotine dependence without complication B12 deficiency BMI 32.0-32.9,adult Well woman exam with routine gynecological exam- Primary Routine gynecological examination Gastroesophageal reflux disease, unspecified whether esophagitis present BMI 32.0-32.9,adult Class 1 obesity due to excess calories without serious comorbidity in adult, unspecified BMI Iron deficiency anemia secondary to inadequate dietary iron intake Hot flashes due to menopause Bipolar disorder with severe depression (HCC)- Primary [...] disorder of initiating or maintaining sleep B12 deficiency- Primary Iron deficiency anemia secondary to inadequate dietary iron intake documented in this encounter [facility]* Diagnosis Breast screening- Primary Breast screening, unspecified Bipolar disorder, in full remission, most recent episode depressed (HCC) Psychophysiological insomnia Persistent disorder of initiating or maintaining sleep B12 deficiency Fibromyalgia Unspecified myalgia and myositis Screening mammogram for breast cancer Bipolar disorder with severe depression (HCC)- Primary Psychophysiological insomnia Persistent disorder of initiating or maintaining sleep Fibromyalgia Unspecified myalgia and myositis Iron deficiency anemia secondary to inadequate dietary iron intake B12 deficiency Bipolar disorder, current episode depressed, severe, without psychotic features (HCC) B12 deficiency- Primary Bipolar disorder, current episode depressed, severe, without psychotic features (HCC) Psychophysiological insomnia Persistent disorder of initiating or maintaining sleep Iron deficiency anemia secondary to inadequate dietary iron intake URTI (acute upper respiratory infection) Acute upper respiratory infections of unspecified site Bipolar disorder with severe depression (HCC) Antibiotic-induced yeast infection Cutaneous abscess of groin B12 deficiency- Primary Psychophysiological insomnia Persistent disorder of initiating or maintaining sleep Iron deficiency anemia secondary to inadequate dietary iron intake History of gastric bypass Bipolar disorder with severe depression (HCC) Encounter for screening mammogram for breast cancer- Primary Screening for diabetes mellitus Seizure-like activity (HCC) Fluid level behind tympanic membrane of both [...] seasonal allergies Cutaneous abscess of abdominal wall Gastroesophageal reflux disease, unspecified whether esophagitis present- [...] prolapse of female genital organ BMI 34.0-34.9,adult Iron deficiency anemia secondary to inadequate dietary iron intake- Primary Class 1 obesity due to excess calories without serious comorbidity in adult, unspecified BMI Cigarette nicotine dependence without complication B12 deficiency BMI 32.0-32.9,adult Well woman exam with routine gynecological exam- Primary Routine gynecological examination Gastroesophageal reflux disease, unspecified whether esophagitis present BMI 32.0-32.9,adult Class 1 obesity due to excess calories without serious comorbidity in adult, unspecified BMI Iron deficiency anemia secondary to inadequate dietary iron intake Hot flashes due to menopause Bipolar disorder with severe depression (HCC)- Primary Gastroesophageal reflux disease, unspecified whether esophagitis present Class 1 obesity due to excess calories without serious comorbidity with body mass index (BMI) of 32.0 to 32.9 in adult Cigarette nicotine dependence without complication Stress Other psychological or physical stress, not elsewhere classified Fibromyalgia Unspecified myalgia and myositis Psychophysiological insomnia Persistent disorder of initiating or maintaining sleep URTI (acute upper respiratory infection) Acute upper respiratory infections of unspecified site Non-recurrent acute suppurative otitis media of both ears without spontaneous rupture of tympanic membranes documented in this encounter [facility] HealthcareEvaluation note* Diagnosis Breast screening- Primary Breast screening, unspecified Bipolar disorder, in full remission, most recent episode depressed (HCC) Psychophysiological insomnia Persistent disorder of initiating or maintaining sleep B12 deficiency Fibromyalgia Unspecified myalgia and myositis Screening mammogram for breast cancer Bipolar disorder with severe depression (HCC)- Primary Psychophysiological insomnia Persistent disorder of initiating or maintaining sleep Fibromyalgia Unspecified myalgia and myositis Iron deficiency anemia secondary to inadequate dietary iron intake B12 deficiency Bipolar disorder, current episode depressed, severe, without psychotic features (HCC) B12 deficiency- Primary Bipolar disorder, current episode depressed, severe, without psychotic features (HCC) Psychophysiological insomnia Persistent disorder of initiating or maintaining sleep Iron deficiency anemia secondary to inadequate dietary iron intake URTI (acute upper respiratory infection) Acute upper respiratory infections of unspecified site Bipolar disorder with severe depression (HCC) Antibiotic-induced yeast infection Cutaneous abscess of groin B12 deficiency- Primary Psychophysiological insomnia Persistent disorder of initiating or maintaining sleep Iron deficiency anemia secondary to inadequate dietary iron intake History of gastric bypass Bipolar disorder with severe depression (HCC) Constipation, unspecified constipation type- Primary Constipation, unspecified [...] seasonal allergies Cutaneous abscess of abdominal wall Gastroesophageal reflux disease, unspecified whether esophagitis present- [...] prolapse of female genital organ BMI 34.0-34.9,adult Iron deficiency anemia secondary to inadequate dietary iron intake- Primary Class 1 obesity due to excess calories without serious comorbidity in adult, unspecified BMI Cigarette nicotine dependence without complication B12 deficiency BMI 32.0-32.9,adult Well woman exam with routine gynecological exam- Primary Routine gynecological examination Gastroesophageal reflux disease, unspecified whether esophagitis present BMI 32.0-32.9,adult Class 1 obesity due to excess calories without serious comorbidity in adult, unspecified BMI Iron deficiency anemia secondary to inadequate dietary iron intake Hot flashes due to menopause Bipolar disorder with severe depression (HCC)- Primary [...] apnea, unspecified type Encounter for drug screening documented in this encounter [facility]* Diagnosis Breast screening- Primary Breast screening, unspecified Bipolar disorder, in full remission, most recent episode depressed (HCC) Psychophysiological insomnia Persistent disorder of initiating or maintaining sleep B12 deficiency Fibromyalgia Unspecified myalgia and myositis Screening mammogram for breast cancer Bipolar disorder with severe depression (HCC)- Primary Psychophysiological insomnia Persistent disorder of initiating or maintaining sleep Fibromyalgia Unspecified myalgia and myositis Iron deficiency anemia secondary to inadequate dietary iron intake B12 deficiency Bipolar disorder, current episode depressed, severe, without psychotic features (HCC) B12 deficiency- Primary Bipolar disorder, current episode depressed, severe, without psychotic features (HCC) Psychophysiological insomnia Persistent disorder of initiating or maintaining sleep Iron deficiency anemia secondary to inadequate dietary iron intake URTI (acute upper respiratory infection) Acute upper respiratory infections of unspecified site Bipolar disorder with severe depression (HCC) Antibiotic-induced yeast infection Cutaneous abscess of groin B12 deficiency- Primary Psychophysiological insomnia Persistent disorder of initiating or maintaining sleep Iron deficiency anemia secondary to inadequate dietary iron intake History of gastric bypass Bipolar disorder with severe depression (HCC) Constipation, unspecified constipation type- Primary Constipation, unspecified [...] seasonal allergies Cutaneous abscess of abdominal wall Gastroesophageal reflux disease, unspecified whether esophagitis present- [...] prolapse of female genital organ BMI 34.0-34.9,adult Iron deficiency anemia secondary to inadequate dietary iron intake- Primary Class 1 obesity due to excess calories without serious comorbidity in adult, unspecified BMI Cigarette nicotine dependence without complication B12 deficiency BMI 32.0-32.9,adult Well woman exam with routine gynecological exam- Primary Routine gynecological examination Gastroesophageal reflux disease, unspecified whether esophagitis present BMI 32.0-32.9,adult Class 1 obesity due to excess calories without serious comorbidity in adult, unspecified BMI Iron deficiency anemia secondary to inadequate dietary iron intake Hot flashes due to menopause Bipolar disorder with severe depression (HCC)- Primary Gastroesophageal reflux disease, unspecified whether esophagitis present Class 1 obesity due to excess calories without serious comorbidity with body mass index (BMI) of 32.0 to 32.9 in adult Cigarette nicotine dependence without complication Stress Other psychological or physical stress, not elsewhere classified Fibromyalgia Unspecified myalgia and myositis Psychophysiological insomnia Persistent disorder of initiating or maintaining sleep URTI (acute upper respiratory infection) Acute upper respiratory infections of unspecified site Non-recurrent acute suppurative otitis media of both ears without spontaneous rupture of tympanic membranes documented in this encounter [facility] HealthcareEvaluation note* Diagnosis Cystocele with second degree uterine prolapse- Primary History of reconstructive repair of rectocele Urge urinary incontinence Urge incontinence Incomplete emptying of bladder Incomplete bladder emptying Atrophic vaginitis Postmenopausal atrophic vaginitis [facility] Diagnosis Breast screening- Primary Breast screening, unspecified Bipolar disorder, in full remission, most recent episode depressed (HCC) Psychophysiological insomnia Persistent disorder of initiating or maintaining sleep B12 deficiency Fibromyalgia Unspecified myalgia and myositis Screening mammogram for breast cancer Bipolar disorder with severe depression (HCC)- Primary Psychophysiological insomnia Persistent disorder of initiating or maintaining sleep Fibromyalgia Unspecified myalgia and myositis Iron deficiency anemia secondary to inadequate dietary iron intake B12 deficiency Bipolar disorder, current episode depressed, severe, without psychotic features (HCC) B12 deficiency- Primary Bipolar disorder, current episode depressed, severe, without psychotic features (HCC) Psychophysiological insomnia Persistent disorder of initiating or maintaining sleep Iron deficiency anemia secondary to inadequate dietary iron intake URTI (acute upper respiratory infection) Acute upper respiratory infections of unspecified site Bipolar disorder with severe depression (HCC) Antibiotic-induced yeast infection Cutaneous abscess of groin B12 deficiency- Primary Psychophysiological insomnia Persistent disorder of initiating or maintaining sleep Iron deficiency anemia secondary to inadequate dietary iron intake History of gastric bypass Bipolar disorder with severe depression (HCC) Constipation, unspecified constipation type- Primary Constipation, unspecified [...] seasonal allergies Cutaneous abscess of abdominal wall Gastroesophageal reflux disease, unspecified whether esophagitis present- [...] prolapse of female genital organ BMI 34.0-34.9,adult Iron deficiency anemia secondary to inadequate dietary iron intake- Primary Class 1 obesity due to excess calories without serious comorbidity in adult, unspecified BMI Cigarette nicotine dependence without complication B12 deficiency BMI 32.0-32.9,adult Well woman exam with routine gynecological exam- Primary Routine gynecological examination Gastroesophageal reflux disease, unspecified whether esophagitis present BMI 32.0-32.9,adult Class 1 obesity due to excess calories without serious comorbidity in adult, unspecified BMI Iron deficiency anemia secondary to inadequate dietary iron intake Hot flashes due to menopause Bipolar disorder with severe depression (HCC)- Primary Gastroesophageal reflux disease, unspecified whether esophagitis present Class 1 obesity due to excess calories without serious comorbidity with body mass index (BMI) of 32.0 to 32.9 in adult Cigarette nicotine dependence without complication Stress Other psychological or physical stress, not elsewhere classified Fibromyalgia Unspecified myalgia and myositis Psychophysiological insomnia Persistent disorder of initiating or maintaining sleep UTI (urinary tract infection), uncomplicated Urinary tract infection, site not specified Class 1 obesity due to excess calories without serious comorbidity in adult, unspecified BMI BMI 32.0-32.9,adult documented in this encounter [facility] HealthcareEvaluation note* Diagnosis Breast screening- Primary Breast screening, unspecified Bipolar disorder, in full remission, most recent episode depressed (HCC) Psychophysiological insomnia Persistent disorder of initiating or maintaining sleep B12 deficiency Fibromyalgia Unspecified myalgia and myositis Screening mammogram for breast cancer Bipolar disorder with severe depression (HCC)- Primary Psychophysiological insomnia Persistent disorder of initiating or maintaining sleep Fibromyalgia Unspecified myalgia and myositis Iron deficiency anemia secondary to inadequate dietary iron intake B12 deficiency Bipolar disorder, current episode depressed, severe, without psychotic features (HCC) B12 deficiency- Primary Bipolar disorder, current episode depressed, severe, without psychotic features (HCC) Psychophysiological insomnia Persistent disorder of initiating or maintaining sleep Iron deficiency anemia secondary to inadequate dietary iron intake URTI (acute upper respiratory infection) Acute upper respiratory infections of unspecified site Bipolar disorder with severe depression (HCC) Antibiotic-induced yeast infection Cutaneous abscess of groin B12 deficiency- Primary Psychophysiological insomnia Persistent disorder of initiating or maintaining sleep Iron deficiency anemia secondary to inadequate dietary iron intake History of gastric bypass Bipolar disorder with severe depression (HCC) Constipation, unspecified constipation type- Primary Constipation, unspecified [...] seasonal allergies Cutaneous abscess of abdominal wall Gastroesophageal reflux disease, unspecified whether esophagitis present- [...] prolapse of female genital organ BMI 34.0-34.9,adult Iron deficiency anemia secondary to inadequate dietary iron intake- Primary Class 1 obesity due to excess calories without serious comorbidity in adult, unspecified BMI Cigarette nicotine dependence without complication B12 deficiency BMI 32.0-32.9,adult Well woman exam with routine gynecological exam- Primary Routine gynecological examination Gastroesophageal reflux disease, unspecified whether esophagitis present BMI 32.0-32.9,adult Class 1 obesity due to excess calories without serious comorbidity in adult, unspecified BMI Iron deficiency anemia secondary to inadequate dietary iron intake Hot flashes due to menopause Bipolar disorder with severe depression (HCC)- Primary Gastroesophageal reflux disease, unspecified whether esophagitis present Class 1 obesity due to excess calories without serious comorbidity with body mass index (BMI) of 32.0 to 32.9 in adult Cigarette nicotine dependence without complication Stress Other psychological or physical stress, not elsewhere classified Fibromyalgia Unspecified myalgia and myositis Psychophysiological insomnia Persistent disorder of initiating or maintaining sleep Psychophysiological insomnia Persistent disorder of initiating or maintaining sleep JESSIKA (generalized anxiety disorder) Generalized anxiety disorder Severe episode of recurrent major depressive disorder, without psychotic features (HCC) PTSD (post-traumatic stress disorder) Posttraumatic stress disorder Insomnia, unspecified type Sleep apnea, unspecified type documented in this encounter [facility]* Diagnosis Breast screening- Primary Breast screening, unspecified Bipolar disorder, in full remission, most recent episode depressed (HCC) Psychophysiological insomnia Persistent disorder of initiating or maintaining sleep B12 deficiency Fibromyalgia Unspecified myalgia and myositis Screening mammogram for breast cancer Bipolar disorder with severe depression (HCC)- Primary Psychophysiological insomnia Persistent disorder of initiating or maintaining sleep Fibromyalgia Unspecified myalgia and myositis Iron deficiency anemia secondary to inadequate dietary iron intake B12 deficiency Bipolar disorder, current episode depressed, severe, without psychotic features (HCC) B12 deficiency- Primary Bipolar disorder, current episode depressed, severe, without psychotic features (HCC) Psychophysiological insomnia Persistent disorder of initiating or maintaining sleep Iron deficiency anemia secondary to inadequate dietary iron intake URTI (acute upper respiratory infection) Acute upper respiratory infections of unspecified site Bipolar disorder with severe depression (HCC) Antibiotic-induced yeast infection Cutaneous abscess of groin B12 deficiency- Primary Psychophysiological insomnia Persistent disorder of initiating or maintaining sleep Iron deficiency anemia secondary to inadequate dietary iron intake History of gastric bypass Bipolar disorder with severe depression (HCC) Constipation, unspecified constipation type- Primary Constipation, unspecified [...] seasonal allergies Cutaneous abscess of abdominal wall Gastroesophageal reflux disease, unspecified whether esophagitis present- [...] prolapse of female genital organ BMI 34.0-34.9,adult Iron deficiency anemia secondary to inadequate dietary iron intake- Primary Class 1 obesity due to excess calories without serious comorbidity in adult, unspecified BMI Cigarette nicotine dependence without complication B12 deficiency BMI 32.0-32.9,adult Well woman exam with routine gynecological exam- Primary Routine gynecological examination Gastroesophageal reflux disease, unspecified whether esophagitis present BMI 32.0-32.9,adult Class 1 obesity due to excess calories without serious comorbidity in adult, unspecified BMI Iron deficiency anemia secondary to inadequate dietary iron intake Hot flashes due to menopause Bipolar disorder with severe depression (HCC)- Primary [...] apnea, unspecified type documented in this encounter [facility]* Diagnosis Breast screening- Primary Breast screening, unspecified Bipolar disorder, in full remission, most recent episode depressed (HCC) Psychophysiological insomnia Persistent disorder of initiating or maintaining sleep B12 deficiency Fibromyalgia Unspecified myalgia and myositis Screening mammogram for breast cancer Bipolar disorder with severe depression (HCC)- Primary Psychophysiological insomnia Persistent disorder of initiating or maintaining sleep Fibromyalgia Unspecified myalgia and myositis Iron deficiency anemia secondary to inadequate dietary iron intake B12 deficiency Bipolar disorder, current episode depressed, severe, without psychotic features (HCC) B12 deficiency- Primary Bipolar disorder, current episode depressed, severe, without psychotic features (HCC) Psychophysiological insomnia Persistent disorder of initiating or maintaining sleep Iron deficiency anemia secondary to inadequate dietary iron intake URTI (acute upper respiratory infection) Acute upper respiratory infections of unspecified site Bipolar disorder with severe depression (HCC) Antibiotic-induced yeast infection Cutaneous abscess of groin B12 deficiency- Primary Psychophysiological insomnia Persistent disorder of initiating or maintaining sleep Iron deficiency anemia secondary to inadequate dietary iron intake History of gastric bypass Bipolar disorder with severe depression (HCC) Constipation, unspecified constipation type- Primary Constipation, unspecified [...] seasonal allergies Cutaneous abscess of abdominal wall Gastroesophageal reflux disease, unspecified whether esophagitis present- [...] prolapse of female genital organ BMI 34.0-34.9,adult Iron deficiency anemia secondary to inadequate dietary iron intake- Primary Class 1 obesity due to excess calories without serious comorbidity in adult, unspecified BMI Cigarette nicotine dependence without complication B12 deficiency BMI 32.0-32.9,adult Well woman exam with routine gynecological exam- Primary Routine gynecological examination Gastroesophageal reflux disease, unspecified whether esophagitis present BMI 32.0-32.9,adult Class 1 obesity due to excess calories without serious comorbidity in adult, unspecified BMI Iron deficiency anemia secondary to inadequate dietary iron intake Hot flashes due to menopause Bipolar disorder with severe depression (HCC)- Primary Gastroesophageal reflux disease, unspecified whether esophagitis present Class 1 obesity due to excess calories without serious comorbidity with body mass index (BMI) of 32.0 to 32.9 in adult Cigarette nicotine dependence without complication Stress Other psychological or physical stress, not elsewhere classified Fibromyalgia Unspecified myalgia and myositis Psychophysiological insomnia Persistent disorder of initiating or maintaining sleep Severe episode of recurrent major depressive disorder, [...] in full remission, most recent episode depressed (HCC) Psychophysiological insomnia Persistent disorder of initiating or maintaining sleep B12 deficiency Fibromyalgia Unspecified myalgia and myositis Screening mammogram for breast cancer Bipolar disorder with severe depression (HCC)- Primary Psychophysiological insomnia Persistent disorder of initiating or maintaining sleep Fibromyalgia Unspecified myalgia and myositis Iron deficiency anemia secondary to inadequate dietary iron intake B12 deficiency Bipolar disorder, current episode depressed, severe, without psychotic features (HCC) B12 deficiency- Primary Bipolar disorder, current episode depressed, severe, without psychotic features (HCC) Psychophysiological insomnia Persistent disorder of initiating or maintaining sleep Iron deficiency anemia secondary to inadequate dietary iron intake URTI (acute upper respiratory infection) Acute upper respiratory infections of unspecified site Bipolar disorder with severe depression (HCC) Antibiotic-induced yeast infection Cutaneous abscess of groin B12 deficiency- Primary Psychophysiological insomnia Persistent disorder of initiating or maintaining sleep Iron deficiency anemia secondary to inadequate dietary iron intake History of gastric bypass Bipolar disorder with severe depression (HCC) Constipation, unspecified constipation type- Primary Constipation, unspecified [...] seasonal allergies Cutaneous abscess of abdominal wall Gastroesophageal reflux disease, unspecified whether esophagitis present- [...] prolapse of female genital organ BMI 34.0-34.9,adult Iron deficiency anemia secondary to inadequate dietary iron intake- Primary Class 1 obesity due to excess calories without serious comorbidity in adult, unspecified BMI Cigarette nicotine dependence without complication B12 deficiency BMI 32.0-32.9,adult Well woman exam with routine gynecological exam- Primary Routine gynecological examination Gastroesophageal reflux disease, unspecified whether esophagitis present BMI 32.0-32.9,adult Class 1 obesity due to excess calories without serious comorbidity in adult, unspecified BMI Iron deficiency anemia secondary to inadequate dietary iron intake Hot flashes due to menopause Bipolar disorder with severe depression (HCC)- Primary Gastroesophageal reflux disease, unspecified whether esophagitis present Class 1 obesity due to excess calories without serious comorbidity with body mass index (BMI) of 32.0 to 32.9 in adult Cigarette nicotine dependence without complication Stress Other psychological or physical stress, not elsewhere classified Fibromyalgia Unspecified myalgia and myositis Psychophysiological insomnia Persistent disorder of initiating or maintaining sleep Severe episode of recurrent major depressive disorder, without psychotic features (HCC)- Primary Cigarette nicotine dependence without complication PTSD (post-traumatic stress disorder) Posttraumatic stress disorder Class 1 obesity due to excess calories without serious comorbidity with body mass index (BMI) of 32.0 to 32.9 in adult Iron deficiency anemia secondary to inadequate dietary iron intake Primary insomnia Persistent disorder of initiating or maintaining sleep Gastroesophageal reflux disease, unspecified whether esophagitis present- Primary documented in [facility] encounter [facility] N[facility]ative - Reported* Type Description Date Medical History anxiety Medical History GERD [employer] Other Hospital course Narrative No data available for this section General Surgery [facility] Discharge instructions No data available for this section General Surgery [employer] Instructions* Attachments The following attachments cannot be sent through Care Everywhere. * Pelvic floor muscle exercises (Kosovan) documented [facility] SystemInstructionsNot on file documented in this [facility] SystemProgress note No data available for this section General Surgery [employer] Reason for referral (narrative)* Consultation (Routine) - Pending Review Specialty Diagnoses / Procedures Referred By Carlos white Referred To Contact Rheumatology Diagnoses Fibromyalgia Procedures [place] OFFICE/OUTPATIENT NEW HIGH MDM 60 MINUTES Angel Luis Groves NP [address] [place] [id number] Tyson Collazo MD [address] [place] [address] Referral ID Status Reason Start Date Expiration Date Visits Requested Visits Authorized [id number] Pending Review Specialty Services Required 03/13/2024 09/09/2024 [...] section and content) DATE CREATED AUTHOR 11/16/[address] [facility] DATE CREATED AUTHOR AUTHOR'S ORGANIZ ATION 06/05/2022 [facility] DATE CREATED AUTHOR AUTHOR'S ORGANIZ ATION 04/09/2023 [facility] DATE CREATED AUTHOR AUTHOR'S ORGANIZ ATION 03/20/2024 [facility] DATE CREATED AUTHOR AUTHOR'S ORGANIZ ATION 04/29/2024 [facility] DATE CREATED AUTHOR AUTHOR'S ORGANIZ ATION 01/31/2025 [facility] DATE CREATED AUTHOR AUTHOR'S ORGANIZ ATION 02/10/2025 [facility] DATE CREATED AUTHOR AUTHOR'S ORGANIZ ATION 02/26/2025 [facility] EPIC REASON FOR VISIT (unrecogniz ed section and content) Reason Comments Med Refill Reason Onset Date Comments Med Refill 06/03/2024 Reason Onset Date Comments Med Refill 06/25/2024 Reason Comments Follow-up CONSTIPATION, PT HAS HAD THREE BM'S SINCE LAST VISIT. PT IS STILL HAVING ABDOMINAL PAIN. PT SCHEDULED TO SEE ROSEMARIE GONZALEZ ON 03/18 AT 1500. Reason Comments Follow-up Reason Onset Date Comments Med Refill 07/25/2024 Reason Comments Follow-up 3 mHot flashes Reason Comments Sore Throat Reason Onset Date Comments Med Refill 08/14/2024 Reason Comments Weight Check Reason Onset Date Comments Med Refill 09/06/2024 Reason Onset Date Comments Med Refill 10/23/2024 Reason Onset Date Comments Med Refill 11/18/2024 Reason Comments Weight Check Reason Comments Psychiatric Evaluation Specialty Diagnoses / Procedures Referred By Carlos t Referred To Contact Behavioral Health Diagnoses Bipolar disorder with severe depression (HCC) Procedures [place] OFFICE/OUTPATIENT NEW HIGH MDM 60 MINUTES Pascale Arana, MARY JO [address] [place] [address] Phone: tel: fax: Eunice Dias, HNP- [address] [facility] [address] [place] [address] Phone: tel: fax: Referral ID Status Reason Start Date Expiration Date V isits Requested Visits Authorized [id number] Closed Specialty Services Required 01/06/2025 07/05/2025 1 1 Reason Comments New Patient New Patient presents for evaluation of a possible rectocele. Reason Comments Med Management Follow-up Reason Comments Bipolar disorder with severe depression Patient Care team informatio n (unrecognized section and content) Investment Strategist Relationship Specialty Start Date End Date Shaikh Main MD PCP - General Internal Medicine 04/20/23 Team Status: Active Member Role Status Dates Conrad Ahn DO Attending Provider Active Sta rt: February 26, 2024 Team Status: Inactive Member Role Status Dates Tyson Collazo MD Attending Provider Active St art: April 18, 2024 End: April 18, 2024 Investment Strategist Relationship Specialty Start Date End Date Molina De Anda MD [address] [place] [address] PCP - General Family Medicine 02/21/24 Angel Luis Groves NP [address] [place] [address] Nurse Practitioner Family Medicine 02/21/24 Investment Strategist Relationship Specialty Start Date End Date Molina De Anda MD [address] [place] [address] PCP - General Family Medicine 02/21/24 Angel Luis Groves NP [address] [place] [address] Nurse Practitioner Family Medicine 02/21/24 Investment Strategist Relationship Specialty Start Date End Date Molina De Anda MD [address] [place] [address] PCP - General Family Medicine 02/21/24 Angel Luis Groves NP [address] [place] [address] Nurse Practitioner Family Medicine 02/21/24 Investment Strategist Relationship Specialty Start Date End Date Molina De Anda MD [address] [place] [address] PCP - General Family Medicine 02/21/24 Angel Luis Groves NP [address] [place] [address] Nurse Practitioner Family Medicine 02/21/24 Investment Strategist Relationship Specialty Start Date End Date Molina De Anda MD [address] [place] [address] PCP - General Family Medicine 02/21/24 Angel Luis Groves NP [address] [place] [address] Nurse Practitioner Family Medicine 02/21/24 Investment Strategist Relationship Specialty Start Date End Date Molina De Anda MD [address] [place] [address] PCP - General Family Medicine 02/21/24 Angel Luis Groves NP [address] [place] [address] Nurse Practitioner Family Medicine 02/21/24 Investment Strategist Relationship Specialty Start Date End Date Molina De Anda MD [address] [place] [address] PCP - General Family Medicine 02/21/24 Angel Luis Groves NP [address] [place] [address] Nurse Practitioner Family Medicine 02/21/24 Investment Strategist Relationship Specialty Start Date End Date Molina De Anda MD [address] [place] [address] PCP - General Family Medicine 02/21/24 Angel Luis Groves NP [address] [place] [address] Nurse Practitioner Family Medicine 02/21/24 Investment Strategist Relationship Specialty Start Date End Date Molina De Anda MD [address] [place] [address] PCP - General Family Medicine 02/21/24 Angel Luis Groves NP [address] [place] [address] Nurse Practitioner Family Medicine 02/21/24 Investment Strategist Relationship Specialty Start Date End Date Molina De Anda MD [address] [place] [address] PCP - General Family Medicine 02/21/24 Angel Luis Groves NP [address] [place] [address] Nurse Practitioner Family Medicine 02/21/24 Investment Strategist Relationship Specialty Start Date End Date Molina De Anda MD [address] [place] [address] PCP - General Family Medicine 02/21/24 Angel Luis Groves NP [address] [place] [address] Nurse Practitioner Family Medicine 02/21/24 Investment Strategist Relationship Specialty Start Date End Date Molina De Anda MD [address] [place] [address] PCP - General Family Medicine 02/21/24 Angel Luis Groves NP [address] [place] [address] Nurse Practitioner Family Medicine 02/21/24 Investment Strategist Relationship Specialty Start Date End Date Molina De Anda MD [address] [place] [address] PCP - General Family Medicine 02/21/24 Angel Luis Groves NP [address] [place] [address] Nurse Practitioner Family Medicine 02/21/24 Investment Strategist Relationship Specialty Start Date End Date Molina De Anda MD [address] [place] [address] PCP - General Family Medicine 02/21/24 Angel Luis Groves NP [address] [place] [address] Nurse Practitioner Family Medicine 02/21/24 Investment Strategist Relationship Specialty Start Date End Date Molina De Anda MD [address] [place] [address] PCP - General Family Medicine 02/21/24 Angel Luis Groves NP [address] [place] [address] Nurse Practitioner Family Medicine 02/21/24 Investment Strategist Relationship Specialty Start Date End Date Molina De Anda MD [address] [place] [address] PCP - General Family Medicine 02/21/24 Angel Luis Groves NP [address] [place] [address] Nurse Practitioner Family Medicine 02/21/24 Investment Strategist Relationship Specialty Start Date End Date Molina De Anda MD [address] [place] [address] PCP - General Family Medicine 02/21/24 Angel Luis Groves NP [address] [place] [address] Nurse Practitioner Family Medicine 02/21/24 Investment Strategist Relationship Specialty Start Date End Date Molina De Anda MD [address] [place] [address] PCP - General Family Medicine 02/21/24 Angel Luis Groves NP [address] [place] [address] Nurse Practitioner Family Medicine 02/21/24 Investment Strategist Relationship Specialty Start Date End Date Molina De Anda MD [address] [place] [address] PCP - General Family Medicine 02/21/24 Angel Luis Groves NP [address] [place] [address] Nurse Practitioner Family Medicine 02/21/24 Investment Strategist Relationship Specialty Start Date End Date Molina De Anda MD [address] [place] [address] PCP - General Family Medicine 02/21/24 Angel Luis Groves NP [address] [place] [address] Nurse Practitioner Family Medicine 02/21/24 Investment Strategist Relationship Specialty Start Date End Date Molina De Anda MD [address] [place] [address] PCP - General Family Medicine 02/21/24 Angel Luis Groves NP [address] [place] [address] Nurse Practitioner Family Medicine 02/21/24 Investment Strategist Relationship Specialty Start Date End Date Molina De Anda MD [address] [place] [address] PCP - General Family Medicine 02/21/24 Angel Luis Groves NP [address] [place] [address] Nurse Practitioner Family Medicine 02/21/24 Investment Strategist Relationship Specialty Start Date End Date Molina De Anda MD [address] [place] [address] PCP - General Family Medicine 02/21/24 Angel Luis Groves NP [address] [place] [address] Nurse Practitioner Family Medicine 02/21/24 Investment Strategist Relationship Specialty Start Date End Date Molina De Anda MD [address] [place] [address] PCP - General Family Medicine 02/21/24 Angel Luis Groves NP [address] [place] [address] Nurse Practitioner Family Medicine 02/21/24 Investment Strategist Relationship Specialty Start Date End Date Molina De Anda MD [address] [place] [address] PCP - General Family Medicine 02/21/24 Angel Luis Groves NP [address] [place] [address] Nurse Practitioner Family Medicine 02/21/24 Investment Strategist Relationship Specialty Start Date End Date Molina De Anda MD [address] [place] [address] PCP - General Family Medicine 02/21/24 Angel Luis Groves NP [address] [place] [address] Nurse Practitioner Family Medicine 02/21/24 Investment Strategist Relationship Specialty Start Date End Date Molina De Anda MD [address] [place] [address] PCP - General Family Medicine 02/21/24 Angel Luis Groves NP [address] [place] [address] Nurse Practitioner Family Medicine 02/21/24 Investment Strategist Relationship Specialty Start Date End Date Molina De Anda MD [address] [place] [address] PCP - General Family Medicine 02/21/24 Angel Luis Groves NP [address] [place] [address] Nurse Practitioner Family Medicine 02/21/24 Investment Strategist Relationship Specialty Start Date End Date Molina De Anda MD [address] [place] [address] PCP - General Family Medicine 02/21/24 Angel Luis Groves NP [address] [place] [address] Nurse Practitioner Family Medicine 02/21/24 Investment Strategist Relationship Specialty Start Date End Date Molina De Anda MD [address] [place] [address] PCP - General Family Medicine 02/21/24 Angel Luis Groves NP [address] [place] [address] Nurse Practitioner Family Medicine 02/21/24 Investment Strategist Relationship Specialty Start Date End Date Molina De Anda MD [address] [place] [address] PCP - General Family Medicine 02/21/24 Angel Luis Groves NP [address] [place] [address] Nurse Practitioner Family Medicine 02/21/24 Investment Strategist Relationship Specialty Start Date End Date Molina De Anda MD [address] [place] [address] PCP - General Family Medicine 02/21/24 Angel Luis Groves NP [address] [place] [address] Nurse Practitioner Family Medicine 02/21/24 Investment Strategist Relationship Specialty Start Date End Date Molina De Anda MD [address] [place] [address] PCP - General Family Medicine 02/21/24 Angel Luis Groves NP [address] [place] [address] Nurse Practitioner Family Medicine 02/21/24 Investment Strategist Relationship Specialty Start Date End Date Molina De Anda MD [address] [place] [address] PCP - General Family Medicine 02/21/24 Angel Luis Groves NP [address] [place] [address] Nurse Practitioner Family Medicine 02/21/24 Investment Strategist Relationship Specialty Start Date End Date Molina De Anda MD [address] [place] [address] PCP - General Family Medicine 02/21/24 Angel Luis Groves NP [address] [place] [address] Nurse Practitioner Family Medicine 02/21/24 Investment Strategist Relationship Specialty Start Date End Date Molina De Anda MD [address] [place] [address] PCP - General Family Medicine 02/21/24 Angel Luis Groves NP [address] [place] [address] Nurse Practitioner Family Medicine 02/21/24 Investment Strategist Relationship Specialty Start Date End Date Molina De Anda MD [address] [place] [address] PCP - General Family Medicine 02/21/24 Angel Luis Groves NP [address] [place] [address] Nurse Practitioner Family Medicine 02/21/24 Investment Strategist Relationship Specialty Start Date End Date Molina De Anda MD [address] [place] [address] PCP - General Family Medicine 02/21/24 Angel Luis Groves NP [address] [place] [address] Nurse Practitioner Family Medicine 02/21/24 Investment Strategist Relationship Specialty Start Date End Date Molina De Anda MD [address] [place] [address] PCP - General Family Medicine 02/21/24 Angel Luis Groves NP [address] [place] [address] Nurse Practitioner Family Medicine 02/21/24 Investment Strategist Relationship Specialty Start Date End Date Molina De Anda MD [address] [place] [address] PCP - General Family Medicine 02/21/24 Angel Luis Groves NP [address] [place] [address] Nurse Practitioner Family Medicine 02/21/24 Eunice Dias [facility] [address] [facility] [address] [place] [address] Nurse Practitioner Behavioral Health 01/22/25 Investment Strategist Relationship Specialty Start Date End Date Molina De Anda MD [address] [place] [address] PCP - General Family Medicine 02/21/24 Angel Luis Groves NP [address] [place] [address] Nurse Practitioner Family Medicine 02/21/24 Eunice Dias [facility] [address] [facility] [address] [place] [address] Nurse Practitioner Behavioral Health 01/22/25 Investment Strategist Relationship Specialty Start Date End Date Molina De Anda MD [address] [place] [address] PCP - General Family Medicine 02/21/24 Angel Luis Groves NP [address] [place] [address] Nurse Practitioner Family Medicine 02/21/24 Eunice Dias [facility] [address] [facility] [place] [address] Nurse Practitioner Behavioral Health 01/22/25 Investment Strategist Relationship Specialty Start Date End Date No Pcp, [place] [address] PCP - General Family Medicine 11/21/18 Investment Strategist Relationship Specialty Start Date End Date Molina De Anda MD [address] [place] [address] PCP - General Family Medicine 02/21/24 Angel Luis rGoves, MARY JO [address] [place] [address] Nurse Practitioner Family Medicine 02/21/[facility] [address] [facility] [address] [place] [address] Nurse Practitioner Behavioral Health 01/22/25 Investment Strategist Relationship Specialty Start Date End Date Molina De Anda MD [address] [place] [address] PCP - General Family Medicine 02/21/24 Angel Luis Groves, MARY JO [address] [place] [address] Nurse Practitioner Family Medicine 02/21/24 Eunice Dias [facility] [address] [facility] [address] [place] [address] Nurse Practitioner Behavioral Health 01/22/25 Investment Strategist Relationship Specialty Start Date End Date Molina De Anda MD [address] [place] [address] PCP - General Family Medicine 02/21/24 Angel Luis Groves NP [address] [place] [address] Nurse Practitioner Family Medicine 02/21/24 Eunice Dias [facility] [address] [facility] [address] [place] [address] Nurse Practitioner Behavioral Health 01/22/25 Investment Strategist Relationship Specialty Start Date End Date Molina De Anda MD [address] [place] [address] PCP - General Family Medicine 02/21/24 Angel Luis Groves NP [address] [place] [address] Nurse Practitioner Family Medicine 02/21/[facility] [address] [facility] [address] [place] [address] Nurse Practitioner Behavioral Health 01/22/25 Investment Strategist Relationship Specialty Start Date End Date Molina De Anda MD [address] [place] [address] PCP - General Family Medicine 02/21/24 Angel Luis Groves NP [address] [place] [address] Nurse Practitioner Family Medicine 02/21/[facility] [address] [facility] [address] [place] [address] Nurse Practitioner Behavioral Health 01/22/25 Investment Strategist Relationship Specialty Start Date End Date No Pcp, [place] [address] PCP - General Family Medicine 11/21/18 Investment Strategist Relationship Specialty Start Date End Date Molina De Anda MD [address] [place] [address] PCP - General Family Medicine 02/21/24 Angel Luis Groves NP [address] [place] [address] Nurse Practitioner Family Medicine 02/21/24 [facility] [address] [facility] [address] [place] [address] Nurse Practitioner Behavioral Health 01/22/25 Investment Strategist Relationship Specialty Start Date End Date Molina De Anda MD [address] [place] [address] PCP - General Family Medicine 02/21/24 Angel Luis Groves NP [address] [place] [address] Nurse Practitioner Family Medicine 02/21/24 Eunice Dias [facility] [address] [facility] [place] [address] Nurse Practitioner Behavioral Health 01/22/25 Investment Strategist Relationship Specialty Start Date End Date Molina De Anda MD [address] [place] [address] PCP - General Family Medicine 02/21/24 Angel Luis Groves NP [address] [place] [address] Nurse Practitioner Family [facility] 02/21/24 Eunice Dias [facility] [address] [facility] [place] [address] Nurse Practitioner [facility] 01/22/25 Goals (unrecognized section and content) Goals may [...] BE BASED ON THE PRIMARY CLINICAL RECORDS. [facility] [employer] provides no warranty or guarantee of the accuracy or completeness of information in this document.
[2025-03-05 17:23] LABS: Hematocrit 37.2 % (36.0-48.0); Hemoglobin 11.8 g/dL (12.0-16.0); Immature Granulocytes Abs Auto 0.02 10^3/uL (0.00-0.03); Immature Granulocytes Pct Auto 0.3 % (0.0-0.5); Lymphocytes Absolute Auto 2.3 10^3/uL (1.2-3.8); Mean Corpuscular HGB Conc 31.7 g/dL (29.9-35.2); Mean Corpuscular Hemoglobin 31.1 pg (26.7-34.0); Mean Corpuscular Volume 98.2 fL (81.0-99.0); Platelet Count 255 10^3/uL (150-450); Red Blood Count 3.79 10^6/uL (4.20-5.40); White Blood Count 6.6 10^3/uL (4.0-11.0)
[2025-03-05 17:51] LABS: Iron 78.0 ug/dL (50.0-170.0)
== END 2025-03-05 16:56 | disposition home or self-care (01) ==
PROVIDERS: PCP Nurse Practitioner; Visit Provider Nurse Practitioner
DX: D50.8 Other iron deficiency anemias (principal)
CPT/HCPCS: 36415; 83540; 85025

== ENCOUNTER 2025-03-10 08:23 | Day surgery (SDC) | payer OTHER, SELFPAY ==
[2025-03-10 08:32] VITALS: BP 114/72; PULSE 75; TEMP 36.3; O2SAT 100
--- OUTSIDE RECORDS SUMMARY | 2025-03-10 08:39 | XMS_ITS | CCD ---
Author Organization [facility] Care Team Providers Care Education Counselor Name Role Phone PHYSICIAN, DEFAULT Admitting Unavailable [...] Attending Unavailable SHAIKH MAIN Primary Care Physician Etelvina WELLER, Primary Care Provider Ron Palomares Attending Unavailable Segun HOLLOWAY Attending Unavailable Segun HOLLOWAY Attending Unavailable MD Tyson Collazo Attending Provider [phone] Tyson Collazo Attending Unavailable Tyson Collazo Admitting Unavailable Molina De Anda MD Primary Care Provider [place] BOAT LOADER, Angel Luis Unavailable [phone] [place] BOAT LOADER, Angel Luis Unavailable [phone] Arun PMHNP-BC, Eunice Unavailable Meek WELLER, Flores Gutierrez Attending Unavailable No Pcp, No Pcp Primary Care Provider UnavailSHELIA Kohler Attending Unavailable NO PCP, NO PCP Primary Care Unavailable Rohan Waters L[facility] Unavailable Unavailable GROVES, ANGEL LUIS Attending Unavailabl e AICHHOLZ, PASCALE Attending Unavailable AICHHOLZ, PASCALE Attending Unavailable AICHHOLZ, PASCALE Attending Unavailable AICHHOLZ, PASCALE Attending Unavailable DIAS, EUNICE Attending Unavailable AICHHOLZ, PASCALE Referring Unavailable DIAS, EUNICE Attending Unavailable AICHHOLZ, PASCALE Attending Unavailable ROHAN WATERS Attending Unavailable GROVES, ANGEL LUIS Attending Unavailabl e GROVES, ANGEL LUIS Attending Unavailabl e GROVES, ANGEL LUIS Attending Unavailabl e AICHHOLZ, PASCALE Attending Unavailable Allergies Allergy Classification Reported Allergen(s) Allergy Type Date of Onset Reaction(s) Facility (2 sources) penciclovir; Translations: [penciclovir] Drug Allergy 2 [facility] Repository (6 sources) Penicillins; Translations: [PENICILLINS] Drug allergy (disorder) 4 [facility] Repository (20 sources) Penicillin G Drug Allergy 3 [facility] (20 sources) Penicillins Propensity to adverse reactions 3 Hives [facility] (2 sources) Penicillins Propensity to adverse reactions to drug [facility] Work Phone: Medications Current Medications Medication Drug Class(es) Dates Sig (Normalized) Sig (Original) [id number] 200 actuat albuterol 0.09 mg/actuat metered dose [...] Act ada cariprazine 3 mg oral capsule (20 sources) Atypical Antipsychotic Start: 02-24-2025 End: 03-26-2025 [...] Discontinued cyclobenzaprine hydrochloride 10 mg oral tablet (9 sources) Muscle Relaxant Start: 01-20-2025 take 1 [...] 10/01/2023 Active estradiol 0.1 mg/ml vaginal cream (9 sources) Estrogen Start: 02-06-2025 estradiol (Est race) [...] tip and replace cap. 16 g 5 11/18/2024 Active gabapentin 300 mg oral capsule [...] given by office. Patient was given a [employer] coupon voucher to use, this is not to be ran through patients insurance. 24 tablet 02/13/2023 Active sulfamethoxazole 800 mg / trimethoprim 160 mg oral tablet (11 sources) Dihydrofolate Reductase Inhibitor Antibacterial, Sulfonamide Antimicrobial Start: 025 End: take 1 tablet by mouth every [...] Active vitamin b12 1 mg/ml injectable solution (12 sources) Vitamin B12 Start: 08-04-2023 inject 1000 [...] 90 tablet 0 08/28/2023 11/26/2023 Active Citalopram [place] bromide Active hyoscyamine sulfate 0.125 mg oral [...] 01/06/2025 Discontinued (Therapy completed) polyethylene glycol 3350 67924 mg powder for oral solution (9 sources) [...] Chronic Other aftercare (1 source) 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; Translations: [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 DRUG THERAPY] Onset: 2 Episodic Other [...] Onset: 3 06-30-2023 Chronic Residual codes; unclassified (20 sources) Sleep apnea; Translations: [Sleep apnea, unspecified] [...] Resolved: 5 01-08-2024 Episodic Residual codes; unclassified (20 sources) Insomnia; Translations: [Insomnia, unspecified] Onset: 3 [...] WITH AUTO DIFFon BASOPHILS ABSOLUTE AUTO 0.1 [facility] Basophils/100 WBC (Bld) 1.2 % 0.2 - 2.0 % [facility] Eosinophils/100 WBC (Bld) 7.9 % High 0.9 - 7.0 % [facility] Erythrocyte distribution width (RBC) [Ratio] 15.3 % High 11.0 - 15.0 % [facility] Hematocrit (Bld) [Volume fraction] 37.2 % 36.0 - 48.0 % [facility] Hemoglobin (Bld) [Mass/Vol] 11.8 g/dL Low 12.0 - 16.0 g/dL [facility] IMMATURE GRANULOCYTES ABS AUTO 0.02 [facility] Immature granulocytes/100 WBC (Bld) 0.3 % 0.0 - 0.5 % [facility] Interpretation and review of laboratory results Abnormal [facility] LYMPHOCYTES ABSOLUTE AUTO 2.3 [facility] Lymphocytes/100 WBC (Bld) 35.2 % 20.5 - 60.0 % [facility] MCH (RBC) [Entitic mass] 31.1 pg 26.7 - 34.0 pg [facility] MCHC (RBC) [Mass/Vol] 31.7 g/dL 29.9 - 35.2 g/dL [facility] MCV (RBC) [Entitic vol] 98.2 fL 81.0 - 99.0 fL [facility] MONOCYTES ABSOLUTE AUTO 0.4 [facility] Monocytes/100 WBC (Bld) 5.5 % 1.7 - 12.0 % [facility] NEUTROPHILS ABSOLUTE AUTO 3.3 [facility] Neutrophils/100 WBC (Bld) 49.9 % 43.0 - 75.0 % [facility] Platelet mean volume (Bld) [Entitic vol] 10 fL 9.5 - 13.5 fL [facility]H EO # 0.5 [facility] TB PLT 255 [facility] TB RBC 3.79 Low [facility] TB WBC 6.6 [facility] SEGMENTAL BLOOD PRESSUREon 0 02-27-2025 [place] [address] Cardiology Report Signed Patient: TALIA RUTHERFORD MR#: [id number] : 1970 Acct:[id number] Age/Sex: 54 / F ADM Date: 02/26/25 Loc: CARD Attending Dr: Kajal LAZAR Ordering Physician: Kajal Escobedo Date of Service: 02/26/25 Procedure(s): CA segmental UE or LE PONCE Accession Number(s): [id number] cc: Pascale Arana NP; Kajal Escobedo [facility] Test Date: 2025-02-26 Pat Name: TALIA RUTHERFORD Department: Room: - Gender: Female Float Tender: Cari Nichole : 1970 Requested By: Kajal Escobedo Order Number: [id number] Garth MD: SCOTT PARKINSON M.D. Interpretive Statements [...] M.D. Dictated By: SCOTT PARKINSON Signed By: 02/27/2590602/27/25 09 DD/ 1534 TD/TT: Industrial Maintenance Manager: [facility] Radiology, Radiologi MD blanche - 02/27/2025 [place] [address] Cardiology Report Signed Patient: TALIA RUTHERFORD MR#: [id number] : 1970 Acct:[id number] Age/Sex: 54 / F ADM Date: 02/26/25 Loc: CARD Attending Dr: Kajal LAZAR Ordering Physician: Kajal Escobedo Date of Service: 02/26/25 Procedure(s): CA segmental UE or LE PONCE Accession Number(s): [id number] cc: Pascale Arana NP; Kajal Escobedo [facility] Test Date: 2025-02-26 Pat Name: TALIA RUTHERFORD Department: Room: - Gender: Female Float Tender: Cari Nichole : 1970 Requested By: Kajal Escobedo Order Number: [id number] Reading MD: SCOTT PARKINSON M.D. Interpretive Statements [...] 02/27/25 0907 02/27/25 0907 DD/ 1534 TD/TT: Industrial Maintenance Manager: [facility] [employer] SEGMENTAL BLOOD PRESSUREOrde red By: Radiologist Radiology on 02-27-2025 [facility] [employer] Work Phone: SEGMENTAL BLOOD PRESSUREon 0 02-26-2025 Radiology Study observation (narrative) [facility] XR FOOT LT MIN 3Von 02-20-[address] [place], [place] [address] XRay Report Signed Patient: TALIA RUTHERFORD MR#: [id number] : 1970 Acct:[id number] Age/Sex: 54 / F ADM Date: 02/19/25 Loc: RAD Attending Dr: Kajal LAZAR Ordering Physician: Kajal Escobedo Date of Service: 02/19/25 Procedure(s): XR foot LT min 3V Accession Number(s): [id number] cc: Pascale Arana BOAT LOADER; Kajal Escobedo [place] [id number] Patient Name: TALIA RUTHERFORD MRN: [id number] date: 1970 Sex: F Assigned Patient Location: [facility] Current Patient Location: [facility] Accession/Order Number: [id number] Exam Date: 02/19/2025 10:39 Report Date: 02/19/2025 [...] Jr., D.O. 02/19/2025 3:03 PM Dictation Location: [place] [address] Electronically authenticated by: [id number] Y Date: 02/19/2025 15:03 Dictated By: Merlin Massey M.D. Signed By: 02/19/25 1506 DD/ 1503 TD/TT: Industrial Maintenance Manager: [facility] Radiology, Radiolograndall mancia MD - 02/19/2025 [place] [address] XRay Report Signed Patient: TALIA RUTHERFORD MR#: [id number] : 1970 Acct:[id number] Age/Sex: 54 / F ADM Date: 02/19/25 Loc: [facility] Attending Dr: Kajal LAZAR Ordering Physician: Kajal Escobedo Date of Service: 02/19/25 Procedure(s): XR foot LT min 3V Accession Number(s): [id number] cc: Pascale Arana BOAT LOADER; Kajal Escobedo [place] [address] Patient Name: TALIA RUTHERFORD MRN: [facility]:[id number] date: 1970 Sex: F Assigned Patient Location: [facility] Current Patient Location: [facility] Accession/Order Number: [id number] Exam Date: 02/19/2025 10:39 Report Date: 02/19/2025 [...] Jr., D.O. 02/19/2025 3:03 PM Dictation Location: [place] [address] Electronically authenticated by: [id number] Y Date: 02/19/2025 15:03 Dictated By: Merlin Massey M.D. Signed By: 02/19/25 1506 DD/ 1503 TD/TT: Industrial Maintenance Manager: [facility] Radiology Study observation (narrative) [facility] XR FOOT LT MIN 3VOrdered By: Radiologist Radiology on 02-19-2025 [facility] Work Phone: MR Cervical spine WO contras ton 02-05-2025 [place] [address] Magnetic Resonance Report Signed Patient: TALIA RUTHERFORD MR#: [id number] : 1970 Acct:[id number] Age/Sex: 54 / F ADM Date: 02/04/25 Loc: MRI Attending Dr: Flores Eden M.D. Ordering Physician: Flores Eden M.D. Date of Service: 02/04/25 Procedure(s): MR cervical spine wo con Accession Number(s): [id number] cc: Pascale Arana BOAT LOADER; Flores Eden M.D. The [address] [address] Patient Name: TALIA RUTHERFORD MRN: [id number] date: 1970 Sex: F Assigned Patient Location: MRI Current Patient Location: Accession/Order Number: [id number] Exam Date: 02/05/2025 12:10 Report Date: 02/05/2025 [...] Uncovertebral spurring greatest right. Moderate right and ygdy-nh-zpjskleg left-sided neural foraminal narrowing. Mild canal narrowing. C5-6: Broad-based disc bulge with uncovertebral spurring, greatest left. Moderate right-sided moderate to severe left-sided neural foraminal narrowing. Mild central canal stenosis. C6-C7: Broad-based disc osteophyte complex with uncovertebral spurring. Zxor-rz-pwmcudoj right moderate severe left neural foraminal narrowing. Hvwh-qq-ukchifea canal narrowing. C7-T1: Minimal vertebral hypertrophy. Moderate facet arthropathy. Canal and patent. Mild foraminal narrowing. MR/MR cervical spine wo con IMPRESSION: Overall multilevel degenerative changes with up to csqf-gr-zsyeonlh central canal narrowing. Multilevel foraminal encroachment as noted above. Impression dictated by: Mushtaq Antony M.D. 02/05/2025 12:16 PM Dictation Location: [place] [address] Electronically authenticated by: [id number] Y Date: 02/05/2025 12:16 Dictated By: Mushtaq Antony M.D. Signed By: 02/05/25 1218 DD/ 1216 TD/TT: Industrial Maintenance Manager: [facility] Radiology, Radiologi MD blanche - 02/05/2025 [place] [address] Magnetic Resonance Report Signed Patient: TALIA RUTHERFORD MR#: [id number] : 1970 Acct:[id number] Age/Sex: 54 / F ADM Date: 02/04/25 Loc: MRI Attending Dr: Flores Eden M.D. Ordering Physician: Flores Eden M.D. Date of Service: 02/04/25 Procedure(s): MR cervical spine wo con Accession Number(s): [id number] cc: Pascale Arana NP; Flores Eden M.D. [place] [address] Patient Name: TALIA RUTHERFORD MRN: [id number] date: 1970 Sex: F Assigned Patient Location: MRI Current Patient Location: Accession/Order Number: [id number] Exam Date: 02/05/2025 12:10 Report Date: 02/05/2025 [...] Uncovertebral spurring greatest right. Moderate right and crdb-qc-irealkpu left-sided neural foraminal narrowing. Mild canal narrowing. C5-6: Broad-based disc bulge with uncovertebral spurring, greatest left. Moderate right-sided moderate to severe left-sided neural foraminal narrowing. Mild central canal stenosis. C6-C7: Broad-based disc osteophyte complex with uncovertebral spurring. Sxaf-nu-dspaajrf right moderate severe left neural foraminal narrowing. Mgyw-gm-rusjqftq canal narrowing. C7-T1: Minimal vertebral hypertrophy. Moderate facet arthropathy. Canal and patent. Mild foraminal narrowing. MR/MR cervical spine wo con IMPRESSION: Overall multilevel degenerative changes with up to obst-gz-xkhzznhv central canal narrowing. Multilevel foraminal encroachment as noted above. Impression dictated by: Mushtaq Antony M.D. 02/05/2025 12:16 PM Dictation Location: [place] [address] Electronically authenticated by: [id number] Y Date: 02/05/2025 12:16 Dictated By: Mushtaq Antony M.D. Signed By: 02/05/25 1218 DD/ 1216 TD/TT: Industrial Maintenance Manager: [facility] Radiology Study observation (narrative) [facility] MR Cervical spine WO contras tOrdered By: Radiologist Radiology on 02-05-2025 [facility] Work Phone: MR [place] [address] Magnetic Resonance Report Signed Patient: TALIA RUTHERFORD MR#: [id number] : 1970 Acct:[id number] Age/Sex: 54 / F ADM Date: 02/04/25 Loc: MRI Attending Dr: Flores Eden M.D. Ordering Physician: Flores Eden M.D. Date of Service: 02/04/25 Procedure(s): MR lumbar spine wo con Accession Number(s): [id number] cc: Pascale Arana BOAT LOADER; Flores Eden M.D. [place] [address] Patient Name: TALIA RUTHERFORD MRN: [id number] date: 1970 Sex: F Assigned Patient Location: MRI Current Patient Location: Accession/Order Number: [id number] Exam Date: 02/05/2025 12:16 Report Date: 02/05/2025 [...] Circumferential disc bulge with moderate facet arthropathy. Xxkm-ui-jvxbgzgo right-sided and mild left-sided neural foraminal narrowing . 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 Impression dictated by: Mushtaq Antony M.D. 02/05/2025 2:18 PM Dictation Location: [place] [address] Electronically authenticated by: [id number] Y Date: 02/05/2025 14:18 Dictated By: Mushtaq Antony M.D. Signed By: 02/05/25 1421 DD/ 1418 TD/TT: Industrial Maintenance Manager: [facility] Radiology, Radiologi MD blanche - 02/05/2025 [place] [address] Magnetic Resonance Report Signed Patient: TALIA RUTHERFORD MR#: [id number] : 1970 Acct:[id number] Age/Sex: 54 / F ADM Date: 02/04/25 Loc: MRI Attending Dr: Flores Eden M.D. Ordering Physician: Flores Eden M.D. Date of Service: 02/04/25 Procedure(s): MR lumbar spine wo con Accession Number(s): [id number] cc: Pascale Arana NP; Flores Eden M.D. [place] [id number] Patient Name: TALIA RUTHERFORD MRN: [facility]:[id number] date: 1970 Sex: F Assigned Patient Location: MRI Current Patient Location: Accession/Order Number: [id number] Exam Date: 02/05/2025 12:16 Report Date: 02/05/2025 [...] Circumferential disc bulge with moderate facet arthropathy. Gtpe-hg-tmjyyxuh right-sided and mild left-sided neural foraminal narrowing . 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 Impression dictated by: Mushtaq Antony M.D. 02/05/2025 2:18 PM Dictation Location: [place] [address] Electronically authenticated by: [id number] Y Date: 02/05/2025 14:18 Dictated By: Mushtaq Antony M.D. Signed By: 02/05/25 1421 DD/ 1418 TD/TT: Industrial Maintenance Manager: [facility] Radiology Study observation (narrative) [facility] MR LUMBAR SPINE WO CONOrdere d By: Radiologist Radiology on 02-05-2025 [facility] Work Phone: ALL CBC WITH AUTO DIFFon BASOPHILS ABSOLUTE AUTO 0.1 [facility] Basophils/100 WBC (Bld) 1 % 0.2 - 2.0 % [facility] Eosinophils/100 WBC (Bld) 6.9 % 0.9 - 7.0 % [facility] Erythrocyte distribution width (RBC) [Ratio] 15.6 % High 11.0 - 15.0 % [facility] Hematocrit (Bld) [Volume fraction] 36.2 % 36.0 - 48.0 % [facility] Hemoglobin (Bld) [Mass/Vol] 11.8 g/dL Low 12.0 - 16.0 g/dL [facility] IMMATURE GRANULOCYTES ABS AUTO 0.01 [facility] Immature granulocytes/100 WBC (Bld) 0.2 % 0.0 - 0.5 % [facility] Interpretation and review of laboratory results Abnormal [facility] LYMPHOCYTES ABSOLUTE AUTO 1.9 [facility] Lymphocytes/100 WBC (Bld) 32 % 20.5 - 60.0 % [facility] MCH (RBC) [Entitic mass] 28.6 pg 26.7 - 34.0 pg [facility] MCHC (RBC) [Mass/Vol] 32.6 g/dL 29.9 - 35.2 g/dL [facility] MCV (RBC) [Entitic vol] 87.9 fL 81.0 - 99.0 fL [facility] MONOCYTES ABSOLUTE AUTO 0.3 [facility] Monocytes/100 WBC (Bld) 5.4 % 1.7 - 12.0 % [facility] NEUTROPHILS ABSOLUTE AUTO 3.3 [facility] Neutrophils/100 WBC (Bld) 54.5 % 43.0 - 75.0 % [facility] Platelet mean volume (Bld) [Entitic vol] 9.6 fL 9.5 - 13.5 fL [facility] EO # 0.4 [facility] PLT 273 [facility] RBC 4.12 Low [facility] WBC 6.1 [facility] IGP,APTIMA HPV,AGE GDLNon AGE GDLN ACOG TESTING Note . [facility] Comment on above: TESTS RESULT FLAG UN ITS REF RANGE LAB Clinician Provided Cytology Information Source.............Cervix;Endocervix No. of containers..01 ThinPrep Vial Age Algo ACOG Fiorella... 30-65 01 FLAG LEGEND: L-Low Normal,H-High Normal,LL-Alert Low,HH-Alert High <-Panic Low,>-Panic High,A-Abnormal,AA-Critical Abnormal Performed at: 01 =G [facility] [address] Monika Norton MD, HPV APTIMA Positive Abnormal Negative [facility] Comment on above: This nucleic acid am plification test detects fourteen high- risk HPV types (16,18,31,33,35,39,45,51,52,56,58,59,66,68) without differentiation. HPV GENOTYPE 16 Negative Negative [facility] HPV GENOTYPE 18,45 Negative Negative [facility] Comment on above: Performed at: =G - [facility] [address], [place] [id number] Blister Pack Operator: Monika Norton MD, Phone: [phone] Performed at: WB - [facility] [id number] Blister Pack Operator: Monika Norton MD, Phone: [phone] IGP, APTIMA HPV, RFX 16/18,45 Note . [facility] Comment on above: TESTS RESULT FLAG UN ITS REF RANGE LAB DIAGNOSIS: 02 NEGATIVE FOR INTRAEPITHELIAL LESION OR MALIGNANCY. Specimen adequacy: 02 Satisfactory for evaluation. Endocervical and/or squamous metaplastic cells (endocervical component) are present. Performed by: 02 Carrol Guerrero, Child Care Provider . 02 Note: Note 02 The Pap [...] High,A-Abnormal,AA-Critical Abnormal Performed at: 02 [facility] [address] [place] [address] Monika Norton MD, Interpretation and review of laboratory results Abnormal [facility] BRUSH-ALONE CERVIX ENDOCERVIX [facility] MM TOMOSYNTHESIS SCREENING B Ion 10-23-2024 [facility] [address] [place] [address] Mammography Report Signed Patient: TALIA RUTHERFORD MR#: [id number] : 1970 Acct:[id number] Age/Sex: 54 / F ADM Date: 10/23/24 Loc: MAMMO Attending Dr: Pascale Arana NP Ordering Physician: Pascale Arana NP Results: Date of Service: 10/23/24 Follow Up: Procedure(s): MM tomosynthesis screening BI Accession Number(s): [id number] cc: Pascale Arana NP Patient Name: TALIA RUTHERFORD MR#: [id number] : 1970 Exam Date: 10/23/2024 Ordering Doctor: [...] at age 51. LOCATION: [facility] BREAST COMPOSITION: There are scattered areas [...] Signed By: 10/23/24 1555 DD/ 54 TD/TT: Industrial Maintenance Manager: [facility] Radiology, Lisa mancia MD - 10/23/2024 [place] [address] Mammography Report Signed Patient: TALIA RUTHERFORD MR#: [id number] : 1970 Acct:[id number] Age/Sex: 54 / F ADM Date: 10/23/24 Loc: MAMMO Attending Dr: Pascale Arana NP Ordering Physician: Pascale Arana NP Results: Date of Service: 10/23/24 Follow Up: Procedure(s): MM tomosynthesis screening BI Accession Number(s): [id number] cc: Pascale Arana NP Patient Name: TALIA RUTHERFORD MR#: [id number] : 1970 Exam Date: 10/23/2024 Ordering Doctor: [...] at age 51. LOCATION: [facility] BREAST COMPOSITION: There are scattered areas [...] Signed By: 10/23/24 1555 DD/ 54 TD/TT: Industrial Maintenance Manager: [facility] Radiology Study observation (narrative) [facility] MM TOMOSYNTHESIS SCREENING B IOrdered By: Radiologist Radiology on 10-23-2024 [facility] Work Phone: ALL CBC WITH AUTO DIFFon BASOPHILS ABSOLUTE AUTO 0 [facility] Basophils/100 WBC (Bld) 0.8 % 0.2 - 2.0 % [facility] Eosinophils/100 WBC (Bld) 3.9 % 0.9 - 7.0 % [facility] Erythrocyte distribution width (RBC) [Ratio] 14.2 % 11.0 - 15.0 % [facility] Hematocrit (Bld) [Volume fraction] 32.9 % Low 36.0 - 48.0 % [facility] Hemoglobin (Bld) [Mass/Vol] 10.6 g/dL Low 12.0 - 16.0 g/dL [facility] IMMATURE GRANULOCYTES ABS AUTO 0 [facility] Immature granulocytes/100 WBC (Bld) 0 % 0.0 - 0.5 % [facility] Interpretation and review of laboratory results Abnormal [facility] LYMPHOCYTES ABSOLUTE AUTO 1.6 [facility] Lymphocytes/100 WBC (Bld) 31.7 % 20.5 - 60.0 % [facility] MCH (RBC) [Entitic mass] 29.5 pg 26.7 - 34.0 pg [facility] MCHC (RBC) [Mass/Vol] 32.2 g/dL 29.9 - 35.2 g/dL [facility] MCV (RBC) [Entitic vol] 91.6 fL 81.0 - 99.0 fL [facility] MONOCYTES ABSOLUTE AUTO 0.4 [facility] Monocytes/100 WBC (Bld) 7.2 % 1.7 - 12.0 % [facility] NEUTROPHILS ABSOLUTE AUTO 2.8 [facility] Neutrophils/100 WBC (Bld) 56.4 % 43.0 - 75.0 % [facility] Platelet mean volume (Bld) [Entitic vol] 10.5 fL 9.5 - 13.5 fL [facility] EO # 0.2 [facility] PLT 199 [facility] TB RBC 3.59 Low [facility] WBC 4.9 [facility] CT FOOT LT WO CONon 09-09-19 [address] [place] [address] CT Scan Report Signed Patient: TALIA RUTHERFORD MR#: [id number] : 1970 Acct:[id number] Age/Sex: 54 / F ADM Date: 09/09/24 Loc: CT Attending Dr: Tawana Foster D.P.M. Ordering Physician: Tawana Foster D.P.M. Date of Service: 09/09/24 Procedure(s): CT foot LT wo con Accession Number(s): [id number] cc: GROVES,BRITTANY [place] [address] Patient Name: TALIA RUTHERFORD MRN: [facility]:[id number] date: 1970 Sex: F Assigned Patient Location: CT Current Patient Location: CT Accession/Order Number: [id number] Exam Date: 09/09/2024 15:56 Report Date: 09/09/2024 [...] Signed By: 09/09/24 1742 DD/ 1739 TD/TT: Industrial Maintenance Manager: [facility] Radiology, Radiologi MD blanche - 09/09/2024 [place] [address] CT Scan Report Signed Patient: TALIA RUTHERFORD MR#: [id number] : 1970 Acct:[id number] Age/Sex: 54 / F ADM Date: 09/09/24 Loc: CT Attending Dr: Tawana Foster D.P.M. Ordering Physician: Tawana Foster D.P.M. Date of Service: 09/09/24 Procedure(s): CT foot LT wo con Accession Number(s): [id number] cc: GROVES,BRITTANY [place] [address] Patient Name: TALIA RUTHERFORD MRN: [facility]:[id number] date: 1970 Sex: F Assigned Patient Location: CT Current Patient Location: CT Accession/Order Number: [id number] Exam Date: 09/09/2024 15:56 Report Date: 09/09/2024 [...] Meneses M.D. Signed By: 09/09/24 174 DD/ 38 TD/TT: Industrial Maintenance Manager: [facility] Radiology Study observation (narrative) [facility] CT FOOT LT WO CONOrdered By: Radiologist Radiology on 09-09-2024 [facility] Work Phone: XR FOOT LT MIN 3Von 09-05-[address] [place], [place] [id number] XRay Report Signed Patient: TALIA RUTHERFORD MR#: [id number] : 1970 Acct:[id number] Age/Sex: 54 / F ADM Date: 09/04/24 Loc: EC Attending Dr: Tawana Foster D.P.M. Ordering Physician: Tawana Foster D.P.M. Date of Service: 09/04/24 Procedure(s): XR foot LT min 3V Accession Number(s): [id number] cc: ANGEL LUIS GROVES; Tawana Foster D.P.M. The [place] [address] Patient Name: TALIA RUTHERFORD MRN: [facility]:[id number] date: 1970 Sex: F Assigned Patient Location: Current Patient Location: Accession/Order Number: [id number] Exam Date: 09/04/2024 15:53 Report Date: 09/05/2024 [...] Signed By: 09/05/24 1019 DD/ 1016 TD/TT: Industrial Maintenance Manager: [facility] Radiology, Radiologi MD blanche - 09/05/2024 [place] [address] XRay Report Signed Patient: TALIA RUTHERFORD MR#: [id number] : 1970 Acct:[id number] Age/Sex: 54 / F ADM Date: 09/04/24 Loc: EC Attending Dr: Tawana Foster D.P.M. Ordering Physician: Tawana Foster D.P.M. Date of Service: 09/04/24 Procedure(s): XR foot LT min 3V Accession Number(s): [id number] cc: ANGEL LUIS GROVES; Tawana Foster D.P.M. [place] [address] Patient Name: TALIA RUTHERFORD MRN: [id number] date: 1970 Sex: F Assigned Patient Location: Current Patient Location: Accession/Order Number: [id number] Exam Date: 09/04/2024 15:53 Report Date: 09/05/2024 [...] Signed By: 09/05/24 1019 DD/ 1016 TD/TT: Industrial Maintenance Manager: [facility] Radiology Study observation (narrative) [facility] XR FOOT LT MIN 3VOrdered By: Radiologist Radiology on 09-05-2024 [facility] Work Phone: CHRONIC WOUND/ULCER (HTRX)on 08-14-2024 ACINETOBACTER [...] cx Ql (Vag fld) Not detected [facility] SERRATIA MARCESCENS (CHRONIC WOUND/ULCER) 0 [facility] SERRATIA MARCESCENS (CHRONIC WOUND/ULCER) Not detected [facility] STAPHYLOCOCCUS AUREUS (CHRONIC WOUND/ULCER) 0 [facility] STAPHYLOCOCCUS AUREUS (CHRONIC WOUND/ULCER) [facility] STAPHYLOCOCCUS EPIDERMIDIS, HAEMOLYTICUS, LUGDUNENSIS, SAPROPHYTICUS (CHRON 23.533 Abnormal [facility] STAPHYLOCOCCUS EPIDERMIDIS, HAEMOLYTICUS, LUGDUNENSIS, SAPROPHYTICUS (CHRON Detected Abnormal [facility] STREPTOCOCCUS PYOGENES (GROUP A STREP) (CHRONIC WOUND/ULCER) 0 [facility] STREPTOCOCCUS PYOGENES (GROUP A STREP) (CHRONIC WOUND/ULCER) Not detected [facility] VARICELLA ZOSTER VIRUS (HUMAN HERPESVIRUS 3) (CHRONIC WOUND/ULCER) 0 [facility] VARICELLA ZOSTER VIRUS (HUMAN HERPESVIRUS 3) (CHRONIC WOUND/ULCER) Not detected [facility] VIBRIO CHOLERAE, PARAHAEMOLYTICUS, VULNIFICUS (CHRONIC WOUND/ULCER) 0 [facility] VIBRIO CHOLERAE, PARAHAEMOLYTICUS, VULNIFICUS (CHRONIC WOUND/ULCER) Not detected [facility] ALL CBC WITH AUTO DIFFon BASOPHILS ABSOLUTE AUTO 0 [facility] Basophils/100 WBC (Bld) 0.6 % 0.2 - 2.0 % [facility] Eosinophils/100 WBC (Bld) 0 % Low 0.9 - 7.0 % [facility] Erythrocyte distribution width (RBC) [Ratio] 13.6 % 11.0 - 15.0 % [facility] Hematocrit (Bld) [Volume fraction] 37.4 % 36.0 - 48.0 % [facility] Hemoglobin (Bld) [Mass/Vol] 12.1 g/dL 12.0 - 16.0 g/dL [facility] IMMATURE GRANULOCYTES ABS AUTO 0.01 [facility] Immature granulocytes/100 WBC (Bld) 0.2 % 0.0 - 0.5 % [facility] Interpretation and review of laboratory results Abnormal [facility] LYMPHOCYTES ABSOLUTE AUTO 1.1 Low [facility] Lymphocytes/100 WBC (Bld) 19.9 % Low 20.5 - 60.0 % [facility] MCH (RBC) [Entitic mass] 29.4 pg 26.7 - 34.0 pg [facility] MCHC (RBC) [Mass/Vol] 32.4 g/dL 29.9 - 35.2 g/dL [facility] MCV (RBC) [Entitic vol] 91 fL 81.0 - 99.0 fL [facility] MONOCYTES ABSOLUTE AUTO 0.2 Low [facility] Monocytes/100 WBC (Bld) 4.2 % 1.7 - 12.0 % [facility] NEUTROPHILS ABSOLUTE AUTO 4.1 [facility] Neutrophils/100 WBC (Bld) 75.1 % High 43.0 - 75.0 % [facility] Platelet mean volume (Bld) [Entitic vol] 9.7 fL 9.5 - 13.5 fL [facility] TBH EO # 0 [facility] TBH PLT 256 [facility] RBC 4.11 Low [facility] WBC 5.4 [facility] SS-A/Ro Sjogrens Antibodyon 04-18-2024 SS-A/Ro Sjogrens Antibody <0.2 Normal 0.0-0.9 [facility] Comment on above: Performed By: #### S SB, SSA #### [facility] , SS-B/La Sjogrens Antibodyon 04-18-2024 SS-B/La Sjogrens Antibody <0.2 Normal 0.0-0.9 [facility] Comment on above: Result Comment: Perf ormed at: - [facility] [address] [id number] Blister Pack Operator: Hector Franco PhD, Phone: [phone] PERFORMED BY: [address] [address] PATHOLOGIST CLAY STAIN MIXER LEAH SANFORD M.D. Performed By: #### S [...] for your care. Normal [facility] Gastroenterology Office/Clin ic Noteon 03-18-2024 [...] vaccine, inactivated - Not Given Patient Refuses [facility] Comment on above: Result Comment: Elec tronically Signed By: Jelani WELLER, Ron Acosta\Date and Time Signed: 03/18/24 15:21 EDT Outside Colonoscopyon 2023 Outside Colonoscopy [id number]#1.00TIFF [facility] Reminderson 07-20-2023 Reminders - From: Machelle Arauz LPN To: N - Clinical; Sent: 07/20/2023 10:55:11 EST Show up: 06/19/2033 07:00:00 EST Subject: colonoscopy recall Due Date/Time: 07/19/2033 07:00:00 EST Reminder/Recall Patient due for screening colonoscopy 07/19/2033. [facility] Lab Reportson 06-26-2023 Lab Reports [id number]#1.00TIFF [facility] Insurance Correspondenceon 1 08-09-2022 Insurance Correspondence [id number]#1.00TIFF [facility] Facesheeton 06-08-2023 Facesheet [id number]#1.00TIFF [facility] Physician Referralon 023 Physician Referral [id number]#1.00TIFF [facility] Ambulatory Visit Summaryon 08-07-2022 Ambulatory Visit [...] for choosing us for your care. Normal [facility] Lab Reportson 05-31-2023 Lab Reports [id number]#1.00TIFF [facility] Consultation Noteon 05-25-20 Consultation Note [id number]#1.00TIFF [facility] Physician Referralon 023 Physician Referral [id number]#1.00TIFF [facility] Office Visiton 04-07-2023 Follow-up visit [id number] Norma Rutherford mireya Dong 1970 Provider Department Center 04/07/2023 [id number] SHAH Hos Family History Problem Relation Age of Onset Brain Aneurysm Mother 80 Diabetes Mother Heart failure Father 80 Diabetes Father Hypertension Father Diabetes Sister Family Status - Relation Status Age at Mother Father Sister Level of Service:84407 [place] OFFICE/OUTPATIENT ESTABLISHED MOD MDM 30-39 MIN Normal [facility] 36on 02-08-2023 36 [facility] lab called to re port critical HGB and hematocrit for patient: HGB was 5.1 and hematocrit is 18.9. I spoke with Talia and advised she go to the ED. She verbalized understanding and will do so. Normal [facility] Office Visiton 02-08-2023 Follow-up visit [id number] Norma Rutherford mireya Dong 1970 Provider Department Center 02/08/202304669-DYSQXTMWWCAROL SHAH Family History Problem Relation Age of Onset Brain Aneurysm Mother 80 Diabetes Mother Heart failure Father 80 Diabetes Father Hypertension Father Diabetes Sister Family Status - Relation Status Age at Mother Father Sister Level of Service:49718 [place] OFFICE/OUTPATIENT NEW MODERATE MDM 45-59 MINUTES Reason for Visit and Comments: Establish Care [42] - Swelling in both legs,right leg is itching and painful Shortness of Breath [206331] Dizziness [602892] Fatigue [46] Normal [facility] PREG HCG QUALon 03-10-2022 , QUAL Negative Normal NEGATIVE [facility] Comment on above: Performed By: #### P REG ####[facility] [address] [place], [place] [address]DrConsuelo Johnson Covid-19 PCR (CVDTB)on 02-21 SARS-CoV-2 (COVID-19) RNA EMMANUEL+probe Ql (Unsp spec) Not detected Normal NOT DETECTED [facility] Comment on above: Result Comment: This test is not yet approved or cleared by the [place] FDA. When there are no FDA-approved or cleared tests available, and other criteria are met, FDA can make tests available under an emergency access mechanism called an Emergency Use Authorization (EUA). The EUA for this test is supported by the [place] of Health and Human Service's (HHS's) declaration [...] By: #### C VDTB #### [facility] [address] [place] [address] [address] Moni Johnson PROF CHEM 8 (BAS METB)on Anion gap [Moles/Vol] 9.0 mmol/L Normal [facility] Comment on above: Performed By: #### B MP ####[facility] [address] [place] [address]DrConsuelo Johnson Calcium [Mass/Vol] 8.3 mg/dL Critically low 8.5-10.1 Th [facility] Comment on above: Performed By: #### B MP ####[facility] [address] [place] [address]DrConsuelo Johnson Chloride [Moles/Vol] 106 mmol/L Normal 98-107 [facility] Comment on above: Performed By: #### B MP ####[facility] [address] [place] [address]DrConsuelo Johnson CO2 [Moles/Vol] 29.2 mmol/L Normal 21.0-32.0 [facility] Comment on above: Performed By: #### B MP ####[facility] [address] [place] [address]DrConsuelo Johnson Creatinine [Mass/Vol] 0.78 mg/dL Normal 0.55-1.02 [facility] Comment on above: Performed By: #### B MP ####[facility] [address] [place] [address]Dr. Angelinemaria a Alex EGFR-AF ECUADOREAN >60 Normal >=60 [facility] Comment on above: Performed By: #### B MP ####[facility] [address] [place] [id number]. Moni Johnson EGFR-NON AF ECUADOREAN >60 Normal >=60 [facility] Comment on above: Performed By: #### B MP ####[facility] [address] [place] [address]Dr. Moni Johnson Glucose [Mass/Vol] 88 mg/dL Normal 74-106 [facility] Comment on above: Performed By: #### B MP ####[facility] [address] [place] [address]Dr. Moni Johnson Potassium [Moles/Vol] 4.2 mmol/L Normal 3.5-5.1 [facility] Comment on above: Performed By: #### B MP ####[facility] [address] [place] [address]Dr. Moni Johnson Sodium [Moles/Vol] 140 mmol/L Normal 136-145 The [facility] Comment on above: Performed By: #### B MP ####[facility] [address] [place] [address]Dr. Moni Johnson Urea nitrogen [Mass/Vol] 21.0 mg/dL Critically high 7.0-18.0 [facility] Comment on above: Performed By: #### B MP ####[facility] [address] [place] [id number]. Moni Johnson Urea nitrogen/Creatinine [Mass ratio] 26.9 mg/mg Normal [facility] Comment on above: Performed By: #### B MP ####[facility] [address] [place] [address] FOOT LT WO CONon [...] Date: 2022-02-22 18:32 Normal [facility] COVID Quick Testingon 2021 Result Negative [employer] Other Quick Fluon 08-30-2021 FLUAV Ab CF (S) [Titer] Negative [employer] Other FLUBV Ab CF (S) [Titer] Negative [employer] Other Covid[facility]19 PCR ([facility]on 05-24 SARS-CoV-2 (COVID-19) RNA EMMANUEL+probe Ql (Unsp spec) Not detected Normal NOT DETECTED [facility] Comment on above: Result Comment: This test is not yet approved or cleared by the [place] FDA. When there are no FDA-approved or cleared tests available, and other criteria are met, FDA can make tests available under an emergency access mechanism called an Emergency Use Authorization (EUA). The EUA for this test is supported by the [place] of Health and Human Service's (HHS's) declaration [...] By: #### C VDTB #### [facility] [address] [place] [address] Dr. Moni Johnson Vital Signs Date Time Vital Sign Value Performing Clinician Facility 02-25-2025 11:31-0400 Body mass index (BMI) [Ratio] 28.76 kg/m2 Pascale Arana BOAT LOADER Work Phone: [facility] 02-25-2025 11:31-0400 Body temperature 97.81 [degF] Pascale Arana BOAT LOADER Work Phone: [facility] 02-25-2025 11:31-0400 Body weight 78.38 kg Pascale Arana BOAT LOADER Work Phone: [facility] 02-25-2025 11:31-0400 Diastolic blood pressure 64 mm[Hg] Pascale Arana BOAT LOADER Work Phone: [facility] 02-25-2025 11:31-0400 Heart rate 99 /min Pascale Arana BOAT LOADER Work Phone: [facility] 02-25-2025 11:31-0400 SaO2% (BldA) [Mass fraction] 97 % Pascale Herreraz BOAT LOADER Work Phone: [facility] 02-25-2025 11:31-0400 Systolic blood pressure 102 mm[Hg] Pascale Herreraz BOAT LOADER Work Phone: [facility] 02-24-2025 15:01-0400 Body mass index (BMI) [Ratio] 28.79 kg/m2 Eunice Dias PMHNP-BC Work Phone: [facility] 02-24-2025 15:01-0400 Body weight 78.47 kg Eunice Dias PMHNP-BC Work Phone: [facility] 02-24-2025 15:01-0400 Diastolic blood pressure 62 mm[Hg] Eunice Dias PMHNP-BC Work Phone: [facility] 02-24-2025 15:01-0400 Heart rate 88 /min Eunice Dias PMHNP-BC Work Phone: [facility] 02-24-2025 15:01-0400 Systolic blood pressure 102 mm[Hg] Eunice Dias PMHNP-BC Work Phone: [facility] 02-06-2025 14:23-0400 Body height 166.4 cm Shelia Muniz DO Work Phone: [facility] 02-06-2025 14:23-0400 Body mass index (BMI) [Ratio] 28.51 kg/m2 Shelia Muniz DO Work Phone: [facility] 02-06-2025 14:23-0400 Body weight 78.93 kg Shelia Muniz DO Work Phone: [facility] 02-06-2025 14:23-0400 Diastolic blood pressure 80 mm[Hg] Shelia Muniz DO Work Phone: [facility] 02-06-2025 14:23-0400 Systolic blood pressure 108 mm[Hg] Shelia Muniz DO Work Phone: [facility] 01-22-2025 09:04-0400 Body mass index (BMI) [Ratio] 29.62 kg/m2 Eunice Dias PMHNP-BC Work Phone: [facility] 01-22-2025 09:04-0400 Body weight 80.74 kg Eunice Dias PMHNP-BC Work Phone: [facility] 01-22-2025 09:04-0400 Diastolic blood pressure 68 mm[Hg] Eunice Dias PMHNP-BC Work Phone: [facility] 01-22-2025 09:04-0400 Heart rate 78 /min Eunice Dias PMHNP-BC Work Phone: [facility] 01-22-2025 09:04-0400 Systolic blood pressure 112 mm[Hg] Eunice Dias PMHNP-BC Work Phone: [facility] 01-06-2025 16:32-0400 Body mass index (BMI) [Ratio] 29.99 kg/m2 Pascale Aichholz BOAT LOADER Work Phone: [facility] 01-06-2025 16:32-0400 Body temperature 98.01 [degF] Pascale Aichholz BOAT LOADER Work Phone: [facility] 01-06-2025 16:32-0400 Body weight 81.74 kg Pascale Aichholz BOAT LOADER Work Phone: [facility] 01-06-2025 16:32-0400 Diastolic blood pressure 60 mm[Hg] Pascale Aichholz BOAT LOADER Work Phone: [facility] 01-06-2025 16:32-0400 Heart rate 82 /min Pascale Aichholz BOAT LOADER Work Phone: [facility] 01-06-2025 16:32-0400 Respiratory rate 18 /min Pascale Aichholz BOAT LOADER Work Phone: [facility] 01-06-2025 16:32-0400 SaO2% (BldA) [Mass fraction] 98 % Pascale Aichholz BOAT LOADER Work Phone: [facility] 01-06-2025 16:32-0400 Systolic blood pressure 110 mm[Hg] Pascale Aichholz BOAT LOADER Work Phone: [facility] 11-20-2024 15:30-0400 Body mass index (BMI) [Ratio] 32.48 kg/m2 Pascale Aichholz BOAT LOADER Work Phone: [facility] 11-20-2024 15:30-0400 Body temperature 98.2 [degF] Pascale Aichholz BOAT LOADER Work Phone: [facility] 11-20-2024 15:30-0400 Body weight 88.54 kg Pascale Shalaholz BOAT LOADER Work Phone: [facility] 11-20-2024 15:30-0400 Diastolic blood pressure 60 mm[Hg] Pascale Aichholz BOAT LOADER Work Phone: [facility] 11-20-2024 15:30-0400 Heart rate 80 /min Pascale Aichholz BOAT LOADER Work Phone: [facility] 11-20-2024 15:30-0400 Respiratory rate 18 /min Pascale Aichholz BOAT LOADER Work Phone: [facility] 11-20-2024 15:30-0400 SaO2% (BldA) [Mass fraction] 95 % Pascale Aichholz BOAT LOADER Work Phone: [facility] 11-20-2024 15:30-0400 Systolic blood pressure 104 mm[Hg] Pascale Aichholz BOAT LOADER Work Phone: [facility] 10-23-2024 17:34-0400 Body mass index (BMI) [Ratio] 32.58 kg/m2 Pascale Aichholz BOAT LOADER Work Phone: [facility] 10-23-2024 17:34-0400 Body temperature 98.8 [degF] Pascale Derrickhholz BOAT LOADER Work Phone: [facility] 10-23-2024 17:34-0400 Body weight 88.81 kg Pascale Derrickhholz BOAT LOADER Work Phone: [facility] 10-23-2024 17:34-0400 Diastolic blood pressure 85 mm[Hg] Pascale Aichholz BOAT LOADER Work Phone: [facility] 10-23-2024 17:34-0400 Heart rate 92 /min Pascale Aichholz BOAT LOADER Work Phone: [facility] 10-23-2024 17:34-0400 Respiratory rate 18 /min Pascale Aichholz BOAT LOADER Work Phone: [facility] 10-23-2024 17:34-0400 SaO2% (BldA) [Mass fraction] 97 % Pascale Arana BOAT LOADER Work Phone: [facility] 10-23-2024 17:34-0400 Systolic blood pressure 98 mm[Hg] Pascale Herreraz BOAT LOADER Work Phone: [facility] 10-02-2024 16:51-0400 Body height 165.1 cm Pascale Herreraz BOAT LOADER Work Phone: [facility] 10-02-2024 16:51-0400 Body mass index (BMI) [Ratio] 33.51 kg/m2 Pascaleeric Lastholz BOAT LOADER Work Phone: [facility] 10-02-2024 16:51-0400 Body temperature 97.81 [degF] Pascale Herreraz BOAT LOADER Work Phone: [facility] 10-02-2024 16:51-0400 Body weight 91.35 kg Pascale Herreraz BOAT LOADER Work Phone: [facility] 10-02-2024 16:51-0400 Heart rate 68 /min Pascaleeric Herreraz BOAT LOADER Work Phone: [facility] 10-02-2024 16:51-0400 Respiratory rate 18 /min Pascale Herreraz BOAT LOADER Work Phone: [facility] 10-02-2024 16:51-0400 SaO2% (BldA) [Mass fraction] 97 % Pascale Lastholz BOAT LOADER Work Phone: [facility] 09-04-2024 16:10-0500 Body height 165.1 cm Angel Luis Groves BOAT LOADER Work Phone: [facility] 09-04-2024 16:10-0500 Body mass index (BMI) [Ratio] 33.28 kg/m2 Angel Luis Groves BOAT LOADER Work Phone: [facility] 09-04-2024 16:10-0500 Body temperature 97.2 [degF] Angel Luis Groves BOAT LOADER Work Phone: [facility] 09-04-2024 16:10-0500 Body weight 90.72 kg Angel Luis Groves BOAT LOADER Work Phone: [facility] 09-04-2024 16:10-0500 Diastolic blood pressure 60 mm[Hg] Angel Luis Groves BOAT LOADER Work Phone: [facility] 09-04-2024 16:10-0500 Heart rate 79 /min Angel Luis Groves BOAT LOADER Work Phone: [facility] 09-04-2024 16:10-0500 Respiratory rate 16 /min Angel Luis Groves BOAT LOADER Work Phone: [facility] 09-04-2024 16:10-0500 SaO2% (BldA) [Mass fraction] 98 % Angel Luis Groves BOAT LOADER Work Phone: [facility] 09-04-2024 16:10-0500 Systolic blood pressure 100 mm[Hg] Angel Luis Groves BOAT LOADER Work Phone: [facility] 08-12-2024 16:04-0500 Body mass index (BMI) [Ratio] 33.32 kg/m2 Pascale Lastholz BOAT LOADER Work Phone: [facility] 08-12-2024 16:04-0500 Body temperature 98.1 [degF] Pascale Javierz BOAT LOADER Work Phone: [facility] 08-12-2024 16:04-0500 Body weight 90.81 kg Pascale Aichholz BOAT LOADER Work Phone: [facility] 08-12-2024 16:04-0500 Diastolic blood pressure 62 mm[Hg] Pascale Aichholz BOAT LOADER Work Phone: [facility] 08-12-2024 16:04-0500 Heart rate 80 /min Pascale Aichholz BOAT LOADER Work Phone: [facility] 08-12-2024 16:04-0500 Respiratory rate 20 /min Pascale Aichholz BOAT LOADER Work Phone: [facility] 08-12-2024 16:04-0500 SaO2% (BldA) [Mass fraction] 97 % Pascale Arana BOAT LOADER Work Phone: [facility] 08-12-2024 16:04-0500 Systolic blood pressure 90 mm[Hg] Pascale Arana BOAT LOADER Work Phone: [facility] 07-31-2024 14:59-0500 Body height 165.1 cm Angel Luis Groves BOAT LOADER Work Phone: [facility] 07-31-2024 14:59-0500 Body mass index (BMI) [Ratio] 34.28 kg/m2 Angel Luis Groves BOAT LOADER Work Phone: [facility] 07-31-2024 14:59-0500 Body temperature 96.21 [degF] Angel Luis Groves BOAT LOADER Work Phone: [facility] 07-31-2024 14:59-0500 Body weight 93.44 kg Angel Luis Groves BOAT LOADER Work Phone: [facility] 07-31-2024 14:59-0500 Diastolic blood pressure 62 mm[Hg] Angel Luis Groves BOAT LOADER Work Phone: [facility] 07-31-2024 14:59-0500 Heart rate 83 /min Angel Luis Groves BOAT LOADER Work Phone: [facility] 07-31-2024 14:59-0500 Respiratory rate 22 /min Angel Luis Groves BOAT LOADER Work Phone: [facility] 07-31-2024 14:59-0500 SaO2% (BldA) [Mass fraction] 98 % Angel Luis Groves BOAT LOADER Work Phone: [facility] 07-31-2024 14:59-0500 Systolic blood pressure 100 mm[Hg] Angel Luis Groves BOAT LOADER Work Phone: [facility] 04-10-2024 15:56-0400 Body height 165.1 cm Angel Luis Groves BOAT LOADER Work Phone: [facility] 04-10-2024 15:56-0400 Body mass index (BMI) [Ratio] 33.61 kg/m2 Angel Luis Groves BOAT LOADER Work Phone: [facility] 04-10-2024 15:56-0400 Body temperature 98.29 [degF] Angel Luis Groves BOAT LOADER Work Phone: [facility] 04-10-2024 15:56-0400 Body weight 91.63 kg Angel Luis Groves BOAT LOADER Work Phone: [facility] 04-10-2024 15:56-0400 Diastolic blood pressure 68 mm[Hg] Angel Luis Groves BOAT LOADER Work Phone: [facility] 04-10-2024 15:56-0400 Heart rate 67 /min Angel Luis Groves BOAT LOADER Work Phone: [facility] Comment on above: 98% O2 04-10-2024 15:56-0400 Systolic blood pressure 100 mm[Hg] Angel Luis Groves BOAT LOADER Work Phone: [facility] 03-18-2024 15:06-0400 Blood Pressure Location Ron Palomares [facility] 03-18-2024 15:06-0400 Diastolic blood pressure 69 mm[Hg] Ron Palomares [facility] 03-18-2024 15:06-0400 Heart rate 85 /min Ron Palomares [facility] 03-18-2024 15:06-0400 Respiratory rate 16 /min Ron Palomares [facility] 03-18-2024 15:06-0400 Systolic blood pressure 107 mm[Hg] Ron Palomares [facility] 03-12-2024 15:46-0400 Body height 165.1 cm Angel Luis Groves BOAT LOADER Work Phone: [facility] 03-12-2024 15:46-0400 Body mass index (BMI) [Ratio] 33.28 kg/m2 Angel Luis Groves BOAT LOADER Work Phone: [facility] 03-12-2024 15:46-0400 Body temperature 98.01 [degF] Angel Luis Groves BOAT LOADER Work Phone: [facility] 03-12-2024 15:46-0400 Body weight 90.72 kg Angel Luis Groves BOAT LOADER Work Phone: [facility] 03-12-2024 15:46-0400 Diastolic blood pressure 70 mm[Hg] Angel Luis Groves BOAT LOADER Work Phone: [facility] 03-12-2024 15:46-0400 Heart rate 71 /min Angel Luis Groves BOAT LOADER Work Phone: [facility] Comment on above: 99% O2 03-12-2024 15:46-0400 Systolic blood pressure 100 mm[Hg] Angel Luis Groves BOAT LOADER Work Phone: [facility] 06-07-2023 16:03-0500 Blood Pressure Location Segun HOLLOWAY [facility] [place] 06-07-2023 16:03-0500 Diastolic blood pressure 88 mm[Hg] Segun HOLLOWAY [facility] [place] 06-07-2023 16:03-0500 Heart rate 72 /min Segun HOLLOWAY [facility] [place] 06-07-2023 16:03-0500 Respiratory rate 16 /min Segun HOLLOWAY [facility] [place] 06-07-2023 16:03-0500 Systolic blood pressure 130 mm[Hg] Segun WILLARDJavier [facility] [place] 08-30-2021 13:00-0500 Body height 165.1 cm Kristin Ginty Other [employer] Other 08-30-2021 13:00-0500 Body mass index (BMI) [Ratio] 30.95 kg/m2 Kristin Ginty Other [employer] Other 08-30-2021 13:00-0500 Body temperature 98 [degF] Kristin Ginty Other [employer] Other 08-30-2021 13:00-0500 Body weight 84.37 kg Kristin Ginty Other [employer] Other 08-30-2021 13:00-0500 Respiratory rate 16 /min Kristin Ginty Other [employer] Other 08-30-2021 13:00-0500 SaO2% (BldA) [Mass fraction] 98 % Kristin Ginty Other [employer] Other Encounters Encounter Date Encounter Type Care Provider Facility Start: 03-06-2025 End: 03-06-2025 ambulatory ROHAN WERNERI Not Available Start: 03-06-2025 End: 03-06-2025 Bamboo flowsheet Rohan Gutierrezicki LITHOGRAPHIC PROOFER [facility] Start: 03-06-2025 End: 03-06-2025 Bamboo flowsheet Rohan Malicki LITHOGRAPHIC PROOFER [facility] Start: 03-05-2025 End: 03-05-2025 Clinisync Result Encounter Pascale Arana BOAT LOADER Work Phone: [facility] External Department Unsolicited Start: 03-05-2025 End: 03-05-2025 Clinisync Result Encounter Pascaleeric Arana BOAT LOADER Work Phone: [facility] External Department Unsolicited Start: 02-26-2025 End: 02-27-2025 Clinisync Result Encounter Generic External Data Provider [facility] Unsolicited Start: 02-26-2025 End: 02-27-2025 Clinisync Result Encounter Generic External Data Provider [facility] External [facility] Unsolicited Start: 02-26-2025 End: 02-26-2025 Refill Pascale Sumit BOAT LOADER Work Phone: [facility] Comment on above: Gastroesophageal ref lux disease, unspecified whether esophagitis present (Primary Dx) Start: 02-25-2025 End: 02-25-2025 Office outpatient visit 25 minutes Pascale Arana BOAT LOADER Work Phone: [facility] Comment on above: Severe episode of re [...] Not Available Start: 02-24-2025 End: 02-24-2025 ambulatory EUNICE DIAS Not Available Start: 02-24-2025 End: 02-24-2025 Office outpatient visit 15 minutes Eunice Dias [facility] Work Phone: [facility] Comment on above: JESSIKA (generalized anx iety disorder) ; Severe episode of recurrent major depressive disorder, without psychotic features (HCC); PTSD (post-traumatic stress disorder) ; Insomnia, unspecified type; Sleep apnea, unspecified type Start: 02-24-2025 End: 02-24-2025 Bamboo flowsheet Eunice Dias [facility] Work Phone: [facility] Start: 02-24-2025 End: 02-24-2025 Bamboo flowsheet Eunice Dias PMHNP-BC Work Phone: [facility] Start: 02-24-2025 End: 02-24-2025 Chart abstracting Tania Asif MD Work Phone: [facility] Start: 02-20-2025 End: 02-20-2025 Refill Pascaleeric Arana BOAT LOADER Work Phone: [facility] Comment on above: Psychophysiological insomnia Start: 02-19-2025 End: 02-19-2025 Clinisync Result Encounter Generic External Data Provider [facility] External Department Unsolicited Start: 02-19-2025 End: 02-19-2025 Clinisync Result Encounter Generic External Data Provider [facility] External Department Unsolicited Start: 02-11-2025 End: 02-12-2025 Refill Pascale Sumit BOAT LOADER Work Phone: [facility] Comment on above: UTI (urinary tract i [...] vaginitis Start: 02-06-2025 End: 02-06-2025 Refill Pascale Sumit BOAT LOADER Work Phone: [facility] Comment on above: URTI (acute upper re spiratory infection); Non-recurrent acute suppurative otitis media of both ears without spontaneous rupture of tympanic membranes Start: 02-05-2025 End: 02-05-2025 Clinisync Result Encounter Generic External Data Provider [facility] External Department Unsolicited Start: 02-05-2025 End: 02-05-2025 Clinisync Result Encounter Generic External Data Provider [facility] External Department Unsolicited Start: 01-22-2025 End: 01-22-2025 Bamboo flowsheet Eunice Dias [facility] Work Phone: [facility] Start: 01-22-2025 End: 01-22-2025 Bamboo flowsheet Eunice Dias [facility] Work Phone: [facility] Start: 01-22-2025 End: 01-22-2025 ambulatory EUNICE DIAS Not Available Start: 01-20-2025 End: 01-20-2025 ambulatory Flores Eden MD Facility:[facility] Start: 01-14-2025 End: 01-14-2025 Clinisync Result Encounter Pascale Arana NP Work Phone: [facility] External Department Unsolicited Start: 01-14-2025 End: 01-14-2025 Clinisync Result Encounter Pascale Arana NP Work Phone: [facility] External Department Unsolicited Start: 01-14-2025 End: 01-14-2025 Refill Pascale Arana NP Work Phone: [facility] Comment on above: URTI (acute upper re spiratory infection); Non-recurrent acute suppurative otitis media of both ears without spontaneous rupture of tympanic membranes Start: 01-07-2025 End: 01-07-2025 Orders Only Pascale Arana NP Work Phone: [facility] Comment on above: B12 deficiency (Prim radha Dx); Iron deficiency anemia secondary to inadequate dietary iron intake Start: 01-06-2025 End: 01-06-2025 Office outpatient visit 25 minutes Pascale Arana NP Work Phone: [facility] Comment on above: Bipolar disorder wit [...] 01-06-2025 End: 01-06-2025 Bamboo flowsheet Pascale Arana BOAT LOADER Work Phone: [facility] Start: 01-06-2025 End: 01-06-2025 Bamboo flowsheet Pascale Arana BOAT LOADER Work Phone: [facility] Start: 01-06-2025 End: 01-06-2025 Telephone encounter Pascale Arana BOAT LOADER Work Phone: [facility] Start: 12-18-2024 End: 12-20-2024 Refill Pascale Arana BOAT LOADER Work Phone: [facility] Comment on above: URTI (acute upper re spiratory infection); Non-recurrent acute suppurative otitis media of both ears without spontaneous rupture of tympanic membranes Start: 11-20-2024 End: 11-20-2024 ambulatory PASCALE ARANA Not Available Start: 11-20-2024 End: 11-20-2024 Patient encounter procedure Pascale Arana BOAT LOADER Work Phone: [facility] Start: 11-20-2024 End: 11-20-2024 Periodic preventive med est patient 40-64yrs Pascale Arana BOAT LOADER Work Phone: [facility] Comment on above: Well woman exam with [...] Start: 11-20-2024 End: 11-20-2024 Bamboo flowsheet Pascale Arana BOAT LOADER Work Phone: [facility] Start: 11-20-2024 End: 11-26-2024 Bamboo flowsheet Pascale Sumit BOAT LOADER Work Phone: [facility] Start: 11-20-2024 End: 11-26-2024 Clinisync Result Encounter Pascale Lastdes CAMARGO Work Phone: [facility] External Department Unsolicited Start: 11-18-2024 End: 11-20-2024 Refill Pascale Sumit BOAT LOADER Work Phone: [facility] Comment on above: Overactive bladder d ue to prolapse of female genital organ Gastroesophageal ref lux disease, unspecified whether esophagitis present Psychophysiological insomnia Fibromyalgia Environmental and se asonal allergies URTI (acute upper re spiratory infection); Non-recurrent acute suppurative otitis media of both ears without spontaneous rupture of tympanic membranes Bipolar disorder wit h severe depression ([facility]) Start: 10-23-2024 End: 10-23-2024 Office outpatient visit 15 minutes Pascale Sumit BOAT LOADER Work Phone: [facility] Comment on above: Iron deficiency anem ia secondary to inadequate dietary iron intake (Primary Dx); Class 1 obesity due to excess calories without serious comorbidity in adult, unspecified BMI; Cigarette nicotine dependence without complication; B12 deficiency; BMI 32.0-32.9,adult Start: 10-23-2024 End: 10-23-2024 Clinisync Result Encounter Pascale Sumit BOAT LOADER Work Phone: [facility] External Department Unsolicited Start: 10-23-2024 End: 10-23-2024 Clinisync Result Encounter Pascale Sumit BOAT LOADER Work Phone: [facility] External Department Unsolicited Start: 10-23-2024 End: 01-15-2025 Patient encounter procedure Molina De Anda MD Work Phone: [facility] Healthcare Start: 10-23-2024 End: 10-23-2024 Refill Molina De Anda MD Work Phone: [facility] Comment on above: URTI (acute upper re spiratory infection); Non-recurrent acute suppurative otitis media of both ears without spontaneous rupture of tympanic membranes Start: 10-03-2024 End: 10-03-2024 Clinisync Result Encounter Pascale Arana BOAT LOADER Work Phone: [facility] External Department Unsolicited Start: 10-03-2024 End: 10-03-2024 Clinisync Result Encounter Pascale Sumit BOAT LOADER Work Phone: [facility] External Department Unsolicited Start: 10-02-2024 End: 10-02-2024 Office outpatient visit 25 minutes Pascale Arana BOAT LOADER Work Phone: [facility] Comment on above: Gastroesophageal ref lux disease, [...] 10-02-2024 End: 10-02-2024 Bamboo flowsheet Pascale Arana BOAT LOADER Work Phone: [facility] Start: 10-02-2024 End: 10-02-2024 Bamboo flowsheet Pascale Arana BOAT LOADER Work Phone: [facility] Start: 09-09-2024 End: 09-09-2024 Clinisync Result Encounter Generic External Data Provider [facility] External Department Unsolicited Start: 09-09-2024 End: 09-09-2024 Clinisync Result Encounter Generic External Data Provider [facility] External Department Unsolicited Start: 09-06-2024 End: 09-09-2024 Refill Pascale Arana BOAT LOADER Work Phone: [facility] Comment on above: Environmental and se asonal allergies Start: 09-05-2024 End: 09-05-2024 Clinisync Result Encounter Generic External Data Provider [facility] External Department Unsolicited Start: 09-05-2024 End: 09-05-2024 Clinisync Result Encounter Generic External Data Provider [facility] External Department Unsolicited Start: 09-04-2024 End: 09-04-2024 Office outpatient visit 10 minutes Angel Luis Blackburnk BOAT LOADER Work Phone: [facility] Comment on above: BMI 33.0-33.9,adult (Primary Dx); Bipolar disorder with severe depression ([facility]); Fibromyalgia; Gastro-esophageal reflux disease without esophagitis; Esophageal reflux; BMI 34.0-34.9,adult; Psychophysiological insomnia; Overactive bladder due to prolapse of female genital organ Start: 09-04-2024 End: 09-04-2024 ambulatory ANGEL LUIS GROVES Not Available Start: 09-04-2024 End: 09-04-2024 Bamboo flowsheet Angel Luis Groves BOAT LOADER Work Phone: [facility] Start: 09-04-2024 End: 09-04-2024 Bamboo flowsheet Angel Luis Groves BOAT LOADER Work Phone: [facility] Start: 08-28-2024 End: 08-28-2024 Refill Angel Luis Groves BOAT LOADER Work Phone: [facility] Comment on above: Fibromyalgia Start: 08-14-2024 End: 08-14-2024 Refill Angel Luis Groves BOAT LOADER Work Phone: [facility] Comment on above: Fibromyalgia Start: 08-12-2024 End: 08-12-2024 Office outpatient visit 25 minutes Pascale Arana BOAT LOADER Work Phone: [facility] Comment on above: Acute non-recurrent maxillary sinusitis (Primary Dx); Cigarette nicotine dependence without complication; Class 1 obesity due to excess calories without serious comorbidity in adult, unspecified BMI; Environmental and seasonal allergies; Cutaneous abscess of abdominal wall Start: 08-12-2024 End: 08-12-2024 ambulatory PASCALE ARANA Not Available Start: 08-12-2024 End: 08-12-2024 Bamboo flowsheet Pascale Arana BOAT LOADER Work Phone: [facility] Start: 08-12-2024 End: 08-14-2024 Bamboo flowsheet Pascale Arana BOAT LOADER Work Phone: [facility] Start: 08-12-2024 End: 08-14-2024 External Result Encounter Pascale Arana BOAT LOADER Work Phone: [facility] External Department Unsolicited Start: 08-05-2024 End: 08-06-2024 Orders Only Angel Luis Groves BOAT LOADER Work Phone: [facility] Comment on above: B12 deficiency (Prim rahda Dx); Iron deficiency anemia, unspecified iron deficiency anemia type Start: 08-01-2024 End: 08-01-2024 Clinisync Result Encounter Angel Luis Groves BOAT LOADER Work Phone: [facility] External Department Unsolicited Start: 08-01-2024 End: 08-01-2024 Clinisync Result Encounter Angel Luis Groves BOAT LOADER Work Phone: [facility] External Department Unsolicited Start: 07-31-2024 End: 07-31-2024 Office outpatient visit 15 minutes Angel Luis Blackburnk BOAT LOADER Work Phone: [facility] Comment on above: Iron deficiency anem ia secondary to inadequate dietary iron intake (Primary Dx); Fibromyalgia; Psychophysiological insomnia; BMI 34.0-34.9,adult Start: 07-31-2024 End: 07-31-2024 ambulatory ANGEL LUIS GROVES Not Available Start: 07-31-2024 End: 07-31-2024 Bamboo flowsheet Angel Luis Mathurtrick BOAT LOADER Work Phone: [facility] Start: 07-31-2024 End: 07-31-2024 Bamboo flowsheet Angel Luis Groves BOAT LOADER Work Phone: [facility] Start: 07-25-2024 End: 07-29-2024 Refill Angel Luis Groves BOAT LOADER Work Phone: [facility] Comment on above: Psychophysiological insomnia Start: 06-25-2024 End: 06-25-2024 Refill Angel Luis Groves BOAT LOADER Work Phone: [facility] Comment on above: Psychophysiological insomnia Start: 06-11-2024 End: 06-11-2024 Orders Only Angel Luis Groves BOAT LOADER Work Phone: [facility] Comment on above: Fibromyalgia (Primar y Dx) Start: 06-03-2024 End: 06-03-2024 Refill Angel Luis Groves BOAT LOADER Work Phone: [facility] Comment on above: Fibromyalgia Start: 05-27-2024 End: 05-27-2024 Orders Only Angel Luis Groves BOAT LOADER Work Phone: [facility] Comment on above: Psychophysiological insomnia (Primary Dx) Start: 04-18-2024 End: 04-18-2024 Patient encounter procedure MD Tyson Collazo Work Phone: [facility] [address] Work Phone: Start: 04-18-2024 End: 04-18-2024 ambulatory Tyson Collazo [facility] Work Phone: Start: 04-10-2024 End: 04-10-2024 Office outpatient visit 15 minutes Angel Luis Groves BOAT LOADER Work Phone: [facility] Comment on above: Psychophysiological insomnia (Primary Dx); Fibromyalgia; Constipation, unspecified constipation type Start: 04-10-2024 End: 04-10-2024 ambulatory ANGEL LUIS GROVES Not Available Start: 04-10-2024 End: 04-10-2024 Bamboo flowsheet Angel Luis Groves BOAT LOADER Work Phone: [facility] Start: 04-10-2024 End: 04-10-2024 Bamboo flowsheet Angel Luis Groves BOAT LOADER Work Phone: [facility] Start: 03-18-2024 End: 03-18-2024 ambulatory [facility] Start: 03-18-2024 End: 03-18-2024 Patient encounter procedure Ron Palomares [facility] Start: 03-13-2024 End: 03-13-2024 Refill Angel Luis Mathurtrick BOAT LOADER Work Phone: [facility] Comment on above: Fibromyalgia (Primar y Dx) Start: 03-12-2024 End: 03-12-2024 Office outpatient visit 15 minutes Angel Luis Mathurtrick BOAT LOADER Work Phone: [facility] Comment on above: Constipation, unspec ified constipation type (Primary Dx); Fibromyalgia Start: 03-12-2024 End: 03-12-2024 ambulatory ANGEL LUIS GROVES Not Available Start: 03-12-2024 End: 03-12-2024 Bamboo flowsheet Angel Luis Groves BOAT LOADER Work Phone: [facility] Start: 03-12-2024 End: 03-12-2024 Bamboo flowsheet Angel Luis Groves BOAT LOADER Work Phone: [facility] Start: 03-07-2024 ambulatory [facility] Start: 02-26-2024 Non-patient / Non-visit MD Roel Collazo Work Phone: [facility] Work Phone: Start: 08-25-2023 Refill Shaikh Etelvina WELLER Work Phone: [facility] Comment on above: Bipolar disorder wit h severe depression (CMS/HCC) Start: 07-19-2023 End: 07-19-2023 ambulatory Segun HOLLOWAY Facility:CD:[id number] Start: 06-07-2023 End: 06-07-2023 ambulatory Segun Denis MONTSEJavier [facility] Start: 06-07-2023 End: 06-07-2023 Patient encounter procedure Segun Denis MONTSEJavier General [facility] Nill[facility] [place] Start: 06-05-2023 ambulatory Ron Palomares Facilit y:[facility] Start: 05-18-2023 ambulatory Ron Modania Facilit y:[facility] Start: 04-07-2023 End: 04-07-2023 ambulatory [facility] Start: 02-08-2023 ambulatory [facility] Start: 05-31-2022 End: 06-01-[address] TAMIKO NETTLES Facility:[facility] Start: 05-10-2022 End: 05-11-[address] ELLIOT JOSE Facility:[facility] Start: 04-19-2022 End: 04-20-2022 ambulatory KAJAL ESCOBEDO Facility:[facility] Start: 03-29-2022 End: 03-30-2022 ambulatory KAJAL ESCOBEDO Facility:[facility] Start: 03-10-2022 End: 03-10-2022 ambulatory TAWANA FOSTER Facility:[facility] Start: 03-07-2022 Encounter for prepro cedural cardiovascular examination TAWANA FOSTER [facility] Start: 03-07-2022 Encounter for prepro cedural laboratory examination TAWANA FOSTER [facility] Start: 03-03-2022 End: 03-04-2022 ambulatory TAWANA FOSTER Facility:[facility] Start: 03-03-2022 End: 03-04-2022 Encounter for preprocedural laboratory examination TAWANA FOSTER Facility:[facility] Start: 02-22-2022 End: 02-23-2022 ambulatory TAWANA FOSTER Facility:[facility] Start: 02-09-2022 End: 02-10-2022 ambulatory TAWANA COMBSSHAMIKA Facility:[facility] Start: 08-30-2021 End: 08-30-2021 ambulatory Kristin Quintana Other [employer] Other Start: 08-30-2021 Office outpatient vi sit 15 minutes Kristin Quintana [facility] Start: 06-07-2021 End: 06-07-[address] ROBERTO SCOTT Facility:[facility] Start: 11-14-2018 End: 11-15-2018 Patient encounter procedure DEFAULT PHYSICIAN Facility:[facility] Procedures Date Procedure Procedure Detail Performing Clinician Start: 03-06-2025 End: 03-06-2025 Psychiatric diagnostic evaluation JESSIKA (generalized anxiety disorder) Rohan Waters LPC Comment on above: JESSIKA (generalized anxiety disorder) ; Severe episode of recurrent major depressive disorder, without psychotic features (HCC); PTSD (post-traumatic stress disorder) Start: 03-05-2025 ALL CBC WITH AUTO DIFF Pascale Sumit BOAT LOADER Work Phone: Start: 02-26-2025 SEGMENTAL BLOOD PRESSURE Generic Externa l Data Provider Start: 02-19-2025 XR FOOT LT MIN 3V Generic External Data Provider Start: 02-05-2025 MR LUMBAR SPINE WO CON Generic External Data Provider Start: 02-05-2025 Mri spinal canal cervical w/o contrast matrl Generic External Data Provider Start: 01-22-2025 End: 01-22-2025 Psychiatric diagnostic eval w/medical services JESSIKA (generalized anxiety disorder) Eunice Dias PMHNP- Work Phone: Comment on above: JESSIKA (generalized anxiety disorder) ; Severe episode of recurrent major depressive disorder, without psychotic features (HCC); PTSD (post-traumatic stress disorder) ; Insomnia, unspecified type; Sleep apnea, unspecified type; Encounter for drug screening Start: 01-14-2025 ALL CBC WITH AUTO DIFF Pascale Javierz BOAT LOADER Work Phone: Start: 11-20-2024 IGP,APTIMA HPV,AGE GDLN Pascale Arana BOAT LOADER Work Phone: Start: 11-20-2024 Microscopic observation [Identifier] in Cervix by Cyto stain Pascale Arana BOAT LOADER Work Phone: Start: 10-23-2024 MM TOMOSYNTHESIS SCREENING BI Pascale Chi hu BOAT LOADER Work Phone: Start: 10-23-2024 Mammography Pascale Herreraantwon BOAT LOADER Work Phone: Start: 10-03-2024 ALL CBC WITH AUTO DIFF Pascale Derrickpiperdes BOAT LOADER Work Phone: Start: 09-09-2024 CT FOOT LT WO CON Generic External Data Provider Start: 09-05-2024 XR FOOT LT MIN 3V Generic External Data Provider Start: 08-12-2024 CHRONIC WOUND/ULCER (HTRX) Pascaleeric Arana BOAT LOADER Work Phone: Start: 08-01-2024 ALL CBC WITH AUTO DIFF Angel Luis Groves BOAT LOADER Work Phone: Start: 07-19-2023 Colonoscopy Shaikh Etelvina WELLER Work Phone: Start: 02-09-2023 Esophagogastroduodenoscopy Segun HOLLOWAY Start: 07-24-2019 Bypass of stomach Segun HOLLOWAY Start: 07-24-2018 Transurethral cystoscopy Segun HOLLOWAY Start: 07-24-2017 Transurethral cystoscopy Segun HOLLOWAY Cholecystectomy Segun HOLLOWAY H/O: surgery History of reconstructive repair of rectocele Shelia Muniz DO Work Phone: Ligation of fallopian tube Lashaun davis AMIE Repair of cystocele Segun HOLLOWAY Plan of Treatment Date Care Activity Detail Author Start: 07-19-2033 Screening for malign ant neoplasm of colon [facility] Start: 11-21-2027 Screening for malign ant neoplasm of cervix [facility] Start: 02-06-2026 Adult BMI Screening Adult BMI Screen [facility] Start: 02-06-2026 Tobacco Screening Tobacco Screening [facility] Start: 10-23-2025 Screening for malign ant neoplasm of breast Mammogram [facility] Start: 04-30-2025 End: 04-30-2025 Patient encounter procedure 04/30/2025 4:30 PM EDT Office Visit [facility] [address] [place] [address] Pascale Arana, MARY JO [address] [place] [address] [facility] Start: 04-09-2025 End: 04-09-2025 Social Work 04/09/2025 4:30 PM EDT Social Work [facility] [address] [place] [phone] Rohan Waters LPC [facility] Start: 04-03-2025 End: 04-03-2025 Telemedicine consultation with patient 04/03/2025 9:00 AM EDT Telemedicine [facility] [address] [place] [address] Eunice Dias [facility] [address] [place] [phone] [facility] Start: 04-02-2025 End: 04-02-2025 Patient encounter procedure 04/02/2025 3:00 PM EDT Office Visit [facility] [address] [facility] [address] [place] [phone] Tania Asif MD [address] [place] [address] [facility] Start: 03-25-2025 End: 03-25-2025 Social Work 03/25/2025 2:30 PM EDT Social Work [facility] [address] [place] [address] Rohan Waters, EH [facility] Start: 03-24-2025 Influenza vaccination [facility] Start: 03-06-2025 End: 03-06-2025 Social Work [facility] Comment on above: Arrived Start: 02-25-2025 End: 02-25-2026 CBC W Auto Differential panel - Blood CBC and differential Lab Routine Iron deficiency anemia secondary to inadequate dietary iron intake Expected: 02/25/2025 (Approximate), Expires: 02/25/2026 [facility] Work Phone: Comment on above: Expected: 02/25/2025 (Approximate), Expires: 02/25/2026 Start: 02-25-2025 End: 02-25-2026 Iron and Iron binding capacity panel - Serum or Plasma Iron level Lab Routine Iron deficiency anemia secondary to inadequate dietary iron intake Expected: 02/25/2025 (Approximate), Expires: 02/25/2026 [facility] Comment on above: Expected: 02/25/2025 (Approximate), Expires: 02/25/2026 Start: 02-25-2025 End: 02-25-2025 Patient encounter procedure 02/25/2025 11:30 AM EDT [facility] [address] [place] [phone] Pascale Arana, BOAT LOADER [address] [place] [phone] [facility] Start: 02-24-2025 End: 02-24-2025 Patient encounter procedure [facility] Start: 02-05-2025 End: 02-05-2025 Patient encounter procedure 02/05/2025 3:20 PM EDT [facility] [address] [place] [phone] Pascale Arana, BOAT LOADER [address] [place] [phone] [facility] Start: 01-22-2025 End: 01-22-2025 Patient encounter procedure [facility] Comment on above: Bipolar disorder wit h severe depression (HCC) Start: 01-07-2025 End: 01-07-2026 CBC W Auto Differential panel - Blood CBC and differential Lab Routine Iron deficiency anemia secondary to inadequate dietary iron intake Expected: 01/07/2025 (Approximate), Expires: 01/07/2026 [facility] Work Phone: Comment on above: Expected: 01/07/2025 (Approximate), Expires: 01/07/2026 Start: 01-07-2025 End: 01-07-2026 Cobalamin (Vitamin B12) [Mass/volume] in Serum or Plasma Vitamin B12 Lab Routine B12 deficiency Iron deficiency anemia secondary to inadequate dietary iron intake Expected: 01/07/2025 (Approximate), Expires: 01/07/2026 [facility] Comment on above: Expected: 01/07/2025 (Approximate), Expires: 01/07/2026 Start: 01-07-2025 End: 01-07-2026 Ferritin [Mass/volume] in Serum or Plasma Ferritin Lab Routine Iron deficiency anemia secondary to inadequate dietary iron intake Expected: 01/07/2025 (Approximate), Expires: 01/07/2026 [facility] Comment on above: Expected: 01/07/2025 (Approximate), Expires: 01/07/2026 Start: 01-07-2025 End: 01-07-2026 Iron + transferrin + TIBC Iron + transferrin + TIBC Lab Routine Iron deficiency anemia secondary to inadequate dietary iron intake Expected: 01/07/2025 (Approximate), Expires: 01/07/2026 [facility] Comment on above: Expected: 01/07/2025 (Approximate), Expires: 01/07/2026 Start: 01-06-2025 End: 01-06-2025 Patient encounter procedure [facility] Comment on above: Gastroesophageal ref lux disease, unspecified whether esophagitis present (Primary Dx); Class 1 obesity due to excess calories without serious comorbidity with body mass index (BMI) of 32.0 to 32.9 in adult; Cigarette nicotine dependence without complication Start: 11-20-2024 End: 11-20-2024 Patient encounter procedure 11/20/2024 3:20 PM EDT [facility] [address] [place] [address] Pascale Arana, MARY JO [address] [place] [phone] [facility] Start: 11-20-2024 End: 11-20-2025 THIN PREP TIS PAP AND HR HPV DNA THIN PREP TIS PAP AND HR HPV DNA Pathology and Cytology Routine Well woman exam with routine gynecological exam Expected: 11/20/2024 (Approximate), Expires: 11/20/2025 [facility] Work Phone: Comment on above: Expected: 11/20/2024 (Approximate), Expires: 11/20/2025 Start: 10-23-2024 End: 10-23-2024 Patient encounter procedure 10/23/2024 5:30 PM EDT Procedure Visit [facility] [address] [place] [address] Pascale Arana, MARY JO [address] [place] [phone] [facility] Start: 10-07-2024 Influenza vaccination Influenza Vacc ine (#1) [facility] Comment on above: Postponed from 03/24 (Patient Refused) Start: 10-04-2024 End: 08-06-2025 CBC W Auto Differential panel - Blood CBC and differential Lab Routine B12 deficiency Iron deficiency anemia, unspecified iron deficiency anemia type Expected: 10/04/2024 (Approximate), Expires: 08/06/2025 [facility] Work Phone: Comment on above: Expected: 10/04/2024 (Approximate), Expires: 08/06/2025 Start: 10-04-2024 End: 08-06-2025 Cobalamin (Vitamin B12) [Mass/volume] in Serum or Plasma Vitamin B12 Lab Routine B12 deficiency Iron deficiency anemia, unspecified iron deficiency anemia type Expected: 10/04/2024 (Approximate), Expires: 08/06/2025 [facility] Comment on above: Expected: 10/04/2024 (Approximate), Expires: 08/06/2025 Start: 10-04-2024 End: 08-06-2025 Ferritin [Mass/volume] in Serum or Plasma Ferritin Lab Routine B12 deficiency Iron deficiency anemia, unspecified iron deficiency anemia type Expected: 10/04/2024 (Approximate), Expires: 08/06/2025 [facility] Comment on above: Expected: 10/04/2024 (Approximate), Expires: 08/06/2025 Start: 10-04-2024 End: 08-06-2025 Iron + transferrin + TIBC Iron + transferrin + TIBC Lab Routine B12 deficiency Iron deficiency anemia, unspecified iron deficiency anemia type Expected: 10/04/2024 (Approximate), Expires: 08/06/2025 [facility] Comment on above: Expected: 10/04/2024 (Approximate), Expires: 08/06/2025 Start: 10-02-2024 End: 10-02-2024 Patient encounter procedure [facility] Comment on above: Class 1 obesity due [...] B12 deficiency Expected: 10/02/2024 (Approximate), Expires: 10/02/2025 [facility] Comment on above: Expected: 10/02/2024 (Approximate), Expires: 10/02/2025 Start: 10-02-2024 End: 10-02-2025 Cobalamin (Vitamin B12) [Mass/volume] in Serum or Plasma Vitamin B12 Lab Routine B12 deficiency Expected: 10/02/2024 (Approximate), Expires: 10/02/2025 [facility] Comment on above: Expected: 10/02/2024 (Approximate), Expires: 10/02/2025 Start: 10-02-2024 End: 10-02-2025 Ferritin [Mass/volume] in Serum or Plasma Ferritin Lab Routine Iron deficiency anemia secondary to inadequate dietary iron intake Expected: 10/02/2024 (Approximate), Expires: 10/02/2025 [facility] Comment on above: Expected: 10/02/2024 (Approximate), Expires: 10/02/2025 Start: 10-02-2024 End: 10-02-2025 Iron + transferrin + TIBC Iron + transferrin + TIBC Lab Routine Iron deficiency anemia secondary to inadequate dietary iron intake Expected: 10/02/2024 (Approximate), Expires: 10/02/2025 [facility] Comment on above: Expected: 10/02/2024 (Approximate), Expires: 10/02/2025 Start: 10-02-2024 End: 12-02-2025 MG Breast - bilateral Screening Bilateral screening mammogram Imaging Routine Encounter for screening mammogram for malignant neoplasm of breast Expected: 10/02/2024 (Approximate), Expires: 12/02/2025 [facility] Work Phone: Comment on above: Expected: 10/02/2024 (Approximate), Expires: 12/02/2025 Start: 09-04-2024 End: 09-04-2024 Patient encounter procedure [facility] Comment on above: Arrived Start: 08-12-2024 End: 08-12-2024 Patient encounter procedure 08/12/2024 4:00 PM EST Office Visit [facility] [address] [place] [phone] Pascale Arana NP [address] [place] [address] Arrived [facility] Comment on above: Arrived Start: 08-12-2024 End: 08-12-2025 SUPERFICIAL WOUND (HTRX) SUPERFICIAL WOUND (HTRX) Lab Routine Cutaneous abscess of abdominal wall Expected: 08/12/2024 (Approximate), Expires: 08/12/2025 [facility] Work Phone: Comment on above: Expected: 08/12/2024 (Approximate), Expires: 08/12/2025 Start: 07-31-2024 End: 07-31-2024 Patient encounter procedure [facility] Comment on above: Arrived Start: 07-31-2024 End: [...] iron intake Expected: 07/31/2024 (Approximate), Expires: 07/31/2025 [facility] Comment on above: Expected: 07/31/2024 (Approximate), Expires: 07/31/2025 Start: 07-31-2024 End: 07-31-2025 Iron + transferrin + TIBC Iron + transferrin + TIBC Lab Routine Iron deficiency anemia secondary to inadequate dietary iron intake Expected: 07/31/2024 (Approximate), Expires: 07/31/2025 [facility] Comment on above: Expected: 07/31/2024 (Approximate), Expires: 07/31/2025 Start: 07-10-2024 End: 07-10-2024 Patient encounter procedure 07/10/2024 4:30 PM EST Office Visit [facility] [address] [place] [phone] Angel Luis Groves NP [address] [place] [address] [facility] Start: 06-05-2024 End: 06-05-2024 Patient encounter procedure 06/05/2024 5:30 PM EST Office Visit [facility] [address] [place] [phone] Angel Luis Groves, MARY JO [address] [place] [address] [facility] Start: 04-10-2024 End: 04-10-2024 Patient encounter procedure [facility] Comment on above: Arrived Start: 03-24-2024 Influenza vaccination Influenza Vacc ine (#1) [facility] Start: 03-12-2024 End: 03-12-2024 Patient encounter procedure 03/12/2024 3:30 PM EDT Office Visit [facility] [address] [place] [address] Angel Luis Groves, MARY JO [address] [place] [phone] Arrived [facility] Comment on above: Arrived Start: 11-13-2023 End: 11-13-2023 Patient encounter procedure 11/13/2023 4:45 PM EDT Office Visit [facility] [address] [place] [address] Shaikh Main MD [address] [place] [phone] [facility] Start: 03-24-2023 Influenza vaccination Influenza Vacc ine (#1) [facility] Start: 2021 Administration of varicella zoster vaccine Zoster (Shingles) Vaccine (1 of 2) [facility] Start: 2011 Screening for malign ant neoplasm of breast Mammogram [facility] Start: 2001 Screening for malign ant neoplasm of cervix [facility] Start: 1992 Screening for malign ant neoplasm of cervix Pap Smear [facility] Start: 1990 DTaP,Tdap and Td Vac cines (1 - Tdap) DTaP,Tdap and Td Vaccines (1 - Tdap) [facility] Start: 1989 Adult BMI Follow Up Plan Adult BMI Follow Up Plan [facility] Start: 1983 Depression Screening Depression Scre ening [facility] Start: 1971 Screening for malign ant neoplasm of colon [facility] Start: 1971 Screening for malign ant neoplasm of lung Lung Cancer Screening Shared Decision Making [facility] Start: 1971 Tobacco Counseling Tobacco Counselin g [facility] CBC W Auto Different ial panel - Blood CBC and differential Lab Routine Iron deficiency anemia secondary to inadequate dietary iron intake Ordered: 07/31/2024 [facility] Work Phone: Comment on above: Ordered: 07/31/2024 DRUG TOX MONITORIGN 6 W/ CONF,URINE DRUG TOX MONITORIGN 6 W/ CONF,URINE Lab Routine Encounter for drug screening Ordered: 01/22/2025 [facility] Work Phone: Comment on above: Ordered: 01/22/2025 Sjogrens syndrome-A extractable nuclear Ab [Units/volume] in Serum [facility] Sjogrens syndrome-B extractable nuclear Ab [Units/volume] in [facility] Immunizations Immunization Date Immunization Notes Care Provider Trena loving NEGATED: Highlighted row has not occurred!06-07-2023 influenza virus vaccine, unspecified formulation Segun HOLLOWAY [facility] Payers Date Payer Category Payer Private Health Insurance 2024 Self-pay 2009 Commercial Managed C are - POS [employer] [id number] 2009 Managed Care HMO (unspecified) [id number] 1971 Unknown [id number] 2.16.840.1.936334.3.57 9.2.647 1971 Unknown [id number] 2.16.840.1.133287.3.57 9.2.593 1971 Unknown [id number] 2.16.840.1.117201.3.57 9.2.593 1971 Unknown [id number] 2.16.840.1.438880.3.57 9.2.593 1971 Unknown [id number] 2.16.840.1.693606.3.57 9.2.593 1971 Unknown [id number] 2.16.840.1.251477.3.57 9.2.593 1971 Unknown [id number] 2.16.840.1.103002.3.57 9.2.593 1971 Unknown [id number] 2.16.840.1.240454.3.57 9.2.593 1971 Unknown [id number] 2.16.840.1.142496.3.57 9.2.593 1971 Unknown [id number] 2.16.840.1.519617.3.57 9.2.593 1971 Unknown [id number] 2.16.840.1.406906.3.57 9.2.727 1971 Unknown [id number] 2.16.840.1.120512.3.57 9.2.727 1971 Unknown [id number] 2.16.840.1.066352.3.57 9.2.727 1971 Unknown [id number] 2.16.840.1.314949.3.57 9.2.727 1971 Unknown [id number] 2.16.840.1.256029.3.57 9.2.727 1971 Unknown [id number] 2.16.840.1.100910.3.57 9.2.196 1971 Unknown [id number] 2.16.840.1.687672.3.57 9.2.1286 1971 Unknown [id number] 2.840.1.680181.3.57 9.2.1259 1971 Unknown [id number] 2.16.840.1.553696.3.57 9.2.1259 1971 Unknown [id number] 2.840.1.471338.3.57 9.2.1259 1971 Unknown [id number] 2.840.1.792707.3.57 9.2.1259 1971 Unknown [id number] 2.840.1.944930.3.57 9.2.1259 1971 Unknown [id number] 2.840.1.198991.3.57 9.2.1259 1971 Unknown [id number] 2.840.1.831412.3.57 9.2.125 1971 Unknown [id number] 2.840.1.984108.3.57 9.2.1259 1971 Unknown [id number] 2.840.1.386038.3.57 9.2.125 1971 Unknown [id number] 2.840.1.764963.3.57 9.2.125 1971 Unknown [id number] 2.840.1.420077.3.57 9.2.125 1971 Unknown [id number] 2.840.1.548961.3.57 9.2.125 1971 Unknown [id number] 2.840.1.890674.3.57 9.2.1259 1959 Private Health Insurance [id number] [id number] Unknown Unknown [id number] 2.16840.1.960451.3.57 9.2.531 Social History Date Type Detail Facility Unknown if ever smoked [employer] [facility] Start: 08-07-2023 End: 01-22-2025 Sex Assigned At [place] [facility] Start: 06-07-2023 End: 03-18-2024 Tobacco smoking status Heavy tobacco smoker (finding) [facility] Tobacco smoking status Former sm okeless tobacco user, quit more than 30 days ago [facility] Start: 07-24-1985 End: 01-08-2024 Tobacco smoking status NHIS Smokes tobacco daily [facility] Start: 07-24-1985 History of tobacco use Cigarette Smo ker [facility] Start: 07-04-2023 End: 08-07-2023 Cigarettes smoked current (pack per day) - Reported 1 [facility] Start: 07-04-2023 End: 01-08-2024 Tobacco use and exposure Smokeless tobacco non-user [facility] Start: 08-14-2023 End: 01-06-2025 Alcohol intake [...] Start: 1970 Sex Assigned At Female F [facility] History of tobacco use Passive smoker [facility] Start: 01-22-2025 End: 02-25-2025 Alcoholic beverage intake Ex-drinker (finding) [facility] Start: 02-26-2015 Sex Female (finding) [facility] Start: 02-24-2025 Alcoholic beverage intake Current drinker of alcohol (finding) [facility] Goals Date Patient Goal Desired Activity /State Personal health goal Functional Status Date Assessment Result Facility 01-22-2025 Generalized anxiety disorder 7 item (JESSIKA-7) [facility] 01-22-2025 Patient Health Quest ionnaire 2 item (PHQ-2) [Reported] [facility] 01-22-2025 PHQ-9 quick depressi on assessment panel [Reported.PHQ] [facility] 03-18-2024 Functional Status N/A [facility] 06-07-2023 Functional Status N/A [facility] Clinical Notes 08-30-2021 to 02-25-2025 Pascale Arana NP - 02/25/2025 12:44 PM EDLIZANDRO ABURTO - 02/25/2025 11:30 AM Amaury Arana NP [...] for last several weeks, she has seen psychology associate, meds changed and she is now on [...] of the risks of continued smoking: stroke, NE, all forms of cancer, lung disease, and [...] of the risks of continued smoking: stroke, NE, all forms of cancer, lung disease, and . Options for quitting smoking include: cold turkey, hypnosis, acupuncture, nicotine replacement meds (gum, lozenges, and patches), Buproprion, and Varenicline. At this time pt is encouraged to evaluate their goals for wanting to quit smoking, and reach out to provider when ready to start this process documented in this encounter [facility] 02-25-2025 Instructions Pascale Arana NP - 02/25/2025 11:30 AM EDT Off work RTW date 03/25/25 documented in this encounter [facility] 02-24-2025 History of Present illness Narrative Images [...] is working with the pain specialist at [facility] in hopes to get an epidural in her neck in the future to help with the pain. She is scheduled to see Rohan Waters ([facility]) on March 06 to start counseling. She [...] as described above. documented in this encounter [facility] 02-06-2025 History of Present illness Narrative Subjective [...] mesh was utilized [facility] History of Present illness Narrative HPI: [...] siblings and him having another family in [place]. She describes her mood as sad, anxious, [...] smoking cessation Lun[employer] - did not work [email or web address] - doesn't recall how this made her [...] (11) who also lives there. 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 Has been with [employer] for 15 years. She states she is [...] the local ER or call Suicide Hotline (080) for any psychosis, suicidal or homicidal ideation, or with any risk of harm to self or others. Patient was seen Face to Face, Total time spent with patient was 60 minutes, which includes reviewing chart documents, previous notes/records, counseling and discussion with patient and/or coordination of care as described above. documented in this encounter [facility] 01-06-2025 Telephone encounter Note Pt states she was not contacted about her iron infusion can we check with TB about this LA [facility] 01-06-2025 Miscellaneous Notes Pt states she was not contacted about her iron infusion can we check with TB about this LA documented in this encounter [facility] 01-06-2025 History of Present illness Narrative Associated [...] of the risks of continued smoking: stroke, NE, all forms of cancer, lung disease, and [...] of the risks of continued smoking: stroke, NE, all forms of cancer, lung disease, and [...] Current med: pantoprazole documented in this encounter [facility] 01-06-2025 Instructions Pascale Arana NP - 01/06/2025 4:30 PM EDT Discontinue the citalopram Start lamotrigine 1 pill at night for 2 weeks, then increase to 1 pill twice a day after that documented in this encounter [facility] 12-18-2024 Telephone encounter Note Yefrancheska. This is Steve at [facility] calling in regards to 1 of Pascale giraldo's patients. Her name is Talia Gipson, and we need to clarify some orders with her. She is supposed to be coming later today. Give us a call back as soon as possible. [phone], extension [phone], thank you. [facility] 12-18-2024 Miscellaneous Notes Tho. This is Steve at [facility] calling in regards to 1 of Pascale giraldo's patients. Her name is Talia Gipson, and we need to clarify some orders with her. She is supposed to be coming later today. Give us a call back as soon as possible. [phone], extension [phone], thank you. documented in this encounter [facility] 11-20-2024 History of Present illness Narrative Associated [...] they will approve Infed, I did contact [facility] 11/19/24 they can order it, [...] nursing note reviewed. Exam conducted with a cad operator present. Constitutional: General: She is not in [...] MG tablet documented in this encounter [facility] 11-20-2024 Instructions Pascale Arana NP - 11/20/2024 3:20 PM EDT Citalopram: currently on 40mg daily, cut pill in half so only at 20mg dose Stop the lanxoprazole, and will trial pantoprazole 40mg daily GERD and if not better at fu appt we will refer to GI We will call about PAP smear results documented in this encounter [facility] 10-23-2024 History of Present illness Narrative Associated [...] of the risks of continued smoking: stroke, NE, all forms of cancer, lung disease, and [...] of the risks of continued smoking: stroke, NE, all forms of cancer, lung disease, and [...] weight was 206 documented in this encounter [facility] 10-02-2024 History of Present illness Narrative Associated [...] of the risks of continued smoking: stroke, NE, all forms of cancer, lung disease, and [...] of the risks of continued smoking: stroke, NE, all forms of cancer, lung disease, and [...] 200 lbs documented in this encounter [facility] 10-02-2024 Instructions Pascale Arana NP - 10/02/2024 5:00 PM EDT Check labs Mammogram: will send to [facility] Schedule PAP documented in this encounter [facility] 09-04-2024 Instructions Angel Luis Groves NP - 09/04/2024 5:00 PM EST Keep up the good work!!! documented in this encounter [facility] 08-14-2024 Telephone encounter Note Patient said her dose was increased and now she is out of this medication. Can you please refill. JN [facility] 08-14-2024 Miscellaneous Notes Patient said her dose was increased and now she is out of this medication. Can you please refill. ANAYELI documented in this encounter [facility] 08-12-2024 History of Present illness [...] of the risks of continued smoking: stroke, NE, all forms of cancer, lung disease, and [...] of the risks of continued smoking: stroke, NE, all forms of cancer, lung disease, and [...] WOUND (HTRX) documented in this encounter [facility] 08-12-2024 Instructions Pascale Arana NP - 08/12/2024 4:00 PM EST Z pack, finish this Fluids, rest Cont layla and we will add flonase nasal spray Warm compress to affected area, will treat based on culture report documented in this encounter [facility] 07-31-2024 History of Present illness [...] MG tablet documented in this encounter [facility] 07-31-2024 Instructions Angel Luis Groves NP - 07/31/2024 3:00 PM EST Notify office with any symptoms of chest pain, dyspnea, heart palpitations, or any anxiety symptoms. F/U in 4 weeks to document weight loss. Increase physical activity as tolerated, and lower caloric intake to 1600 calories daily if no contraindications. documented in this encounter [facility] 07-24-2024 History of Present illness Narrative [...] This Visit Bipolar disorder with severe depression (CMS/[facility]) Relevant Medications citalopram (CeleXA) 40 MG tablet [...] no contraindications. documented in this encounter [facility] 06-03-2024 Telephone encounter Note Pt takes the 60mg in morning and 30 mg in the afternoon, so both. [facility] 06-03-2024 Miscellaneous Notes Pt takes the 60mg in morning and 30 mg in the afternoon, so both. Patient is asking for a 90 day supply. Patient said 60 mg were denied. documented in this encounter [facility] 06-03-2024 Telephone encounter Note Patient is asking for a 90 day supply. Patient said 60 mg were denied. [facility] 04-10-2024 History of Present illness [...] since resolved. documented in this encounter [facility] 03-13-2024 History of Present illness [...] ABDOMINAL PAIN. PT SCHEDULED TO SEE GI [place] ON 03/18 AT 1500. ). HPI IS here today for one week follow-up for constipation. 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 [facility] [place] the [place] and had X3 BM's. Denies blood in stool. States she has been stressed recentlty and feels being away heloped her relax and she was finally able to pass BM. Sees GI in [place] on Sunday 03/18 @ 3pm. Still has [...] next week. documented in this encounter [facility] 03-12-2024 Instructions Angel Luis Groves NP - 03/12/2024 3:30 PM EDT Referral sent to Rheumatology- Dr. Muller in [place], [place]- they will call you! Have mammogram completed. Call if you need anything! documented in this encounter [facility] 06-07-2023 Note Chief Complaint consultation for colonoscopy HPI Staff 53 year old female presents on consultation from Dr. Bustamante for colonoscopy. Patient hospitalized in January with HGB of 4.8. At that time, patient was experiencing profound fatigue, dizziness and SOB. EGD was completed and normal. Patient left AMA prior to colonoscopy being completed. States symptoms have resolved. H/H completed 04/24- .3/30.8. She is taking Ferrous Sulfate 325mg daily. [...] fibromyalgia, referred for severe anemia, admitted to [facility] in January with hb of 5; [...] Cap-DR, 30 mg= (more content not included)... [facility] Comment on above: Result Comment: Elec tronically Signed By: AMIE WELLER, Segun Graham\Date and Time Signed: 06/07/23 17:17 EST 06-07-2023 Evaluation + Plan note Diagnostic Tests PendingIron Level 06/07/23Ferritin 06/07/23Vitamin B12 Level 06/07/23 [facility] 04-07-2023 Note Cardiology Clinic No te Subjective [...] -Resolved, likely exacerbated (more content not included)... [facility] 04-07-2023 Note Patient here for 2 [...] All other systems reviewed and are negative. [facility] 02-08-2023 Note Cardiovascular Medic ine [facility] SUBJECTIVE Chief Complaint Patient presents with [...] medical history of depression here to establish [facility]. She developed bilateral lower extremity edema R>L [...] about 6 weeks (around 03/22/2023). Carol Webb APRN-[facility] Cardiovascular Medicine [facility] 05-31-2022 Note PROCEDURE: XR FOOT L [...] authenticated by: TAMIKO NETTLES Date: 2022-05-31 20:30 [facility] 05-11-2022 Note PROCEDURE: XR FOOT L T [...] JOSE Date: 2022-05-11 16:14 [facility] 04-19-2022 Note PROCEDURE: XR FOOT L [...] NETTLES Date: 2022-04-19 18:16 [facility] 03-30-2022 Note PROCEDURE: XR FOOT L [...] NETTLES Date: 2022-03-30 06:41 [facility] 03-11-2022 Note PROCEDURE: XR FOOT L [...] authenticated by: ELLIOT JOSE Date: 2022-03-11 08:26 [facility] 03-11-2022 Note PROCEDURE: XR FOOT L T 2V HISTORY: Pain COMPARISON: XR foot left 02/09/2022 FINDINGS: BONES:Multiple intraoperative images demonstrate mechanical fusion of the second and third tarsal-metatarsal joints. SOFT TISSUES:Expected intraoperative findings. EFFUSION:None visible. OTHER: Negative. IMPRESSION: 1. Mechanical fusion of second and third tarsal-metatarsal joints. Electronically authenticated by: ELLIOT JOSE Date: 2022-03-11 07:55 [facility] 02-10-2022 Note PROCEDURE: XR FOOT L T MIN 3 VIEWS COMPARISON: 12/15/2020 HISTORY: Pain FINDINGS: BONES:No acute fracture or dislocation. Stable moderate degenerative changes most significant at the tarsometatarsal joints. Moderate plantar enthesopathic spurring of the calcaneus SOFT TISSUES:Negative. No visible soft tissue swelling. EFFUSION:None visible. OTHER: Negative. IMPRESSION: Stable moderate degenerative changes Electronically authenticated by: TAMIKO NETTLES Date: 2022-02-10 07:37 [facility] 08-30-2021 Evaluation note Encounter Date Diagnosis [...] given in writting by [facility] Care At Home document [employer] Other Evaluation note* Diagnosis Bipolar disorder with severe depression (CMS/HCC) [facility] noteNo assessment information [facility] Work Phone: Evaluation note* Diagnosis [...] in full remission, most recent episode depressed ([facility]/HCC) Psychophysiological insomnia Persistent disorder of initiating or [...] female genital organ documented in this encounter [facility] HealthcareEvaluation note* Diagnosis Breast screening- Primary [...] of tympanic membranes documented in this encounter [facility]* [...] in full remission, most recent episode depressed ([facility]/HCC) Psychophysiological insomnia Persistent disorder of initiating or [...] gastric bypass Bipolar disorder with severe depression ([facility]) Encounter for screening mammogram for breast cancer- Primary Screening for diabetes mellitus Seizure-like activity ([facility]) Fluid level behind tympanic membrane of both [...] female genital organ documented in this encounter [facility] HealthcareEvaluation note* Diagnosis Breast screening- Primary [...] whether esophagitis present documented in this encounter [facility] HealthcareEvaluation note* Diagnosis Breast screening- Primary [...] unspecified site Bipolar disorder with severe depression ([facility]/HCC) Antibiotic-induced yeast infection Cutaneous abscess of groin B12 deficiency- Primary Psychophysiological insomnia Persistent disorder of initiating or maintaining sleep Iron deficiency anemia secondary to inadequate dietary iron intake History of gastric bypass Bipolar disorder with severe depression ([facility]/HCC) Encounter for screening mammogram for breast cancer- Primary Screening for diabetes mellitus Seizure-like activity ([facility]) Fluid level behind tympanic membrane of both [...] in full remission, most recent episode depressed ([facility]) Psychophysiological insomnia Persistent disorder of initiating or maintaining sleep B12 deficiency Fibromyalgia Unspecified myalgia and myositis Screening mammogram for breast cancer Bipolar disorder with severe depression ([facility]/HCC)- Primary Psychophysiological insomnia Persistent disorder of initiating [...] of tympanic membranes documented in this encounter [facility] HealthcareEvaluation note* Diagnosis Breast screening- Primary [...] Primary Screening for diabetes mellitus Seizure-like activity ([facility]/HCC) Fluid level behind tympanic membrane of both [...] BMI 32.0-32.9,adult Bipolar disorder with severe depression (CMS/HCC) Well woman exam with routine gynecological exam- [...] gastric bypass Bipolar disorder with severe depression ([facility]) Encounter for screening mammogram for breast cancer- Primary Screening for diabetes mellitus Seizure-like activity ([facility]) Fluid level behind tympanic membrane of both [...] of tympanic membranes documented in this encounter [facility] HealthcareEvaluation note* Diagnosis Breast screening- Primary [...] Primary Screening for diabetes mellitus Seizure-like activity ([facility]) Fluid level behind tympanic membrane of both [...] of tympanic membranes documented in this encounter [facility]* [...] of tympanic membranes documented in this encounter [facility] HealthcareEvaluation note* Diagnosis Cystocele with second degree uterine prolapse- Primary History of reconstructive repair of rectocele Urge urinary incontinence Urge incontinence Incomplete emptying of bladder Incomplete bladder emptying Atrophic vaginitis Postmenopausal atrophic vaginitis documented in this encounter [facility] note* Diagnosis Breast screening- Primary [...] BMI BMI 32.0-32.9,adult documented in this encounter [facility] [...] present- Primary documented in this encounter [facility]* [...] PTSD (post-traumatic stress disorder) Posttraumatic stress disorder documented in this encounter [facility] general Narrative - Reported* Type Description Date Medical History anxiety Medical History GERD [employer] Other Hospital course Narrative No data available for this section General Surgery [facility] Hospital Discharge instructions No data available for this section General Surgery [employer] Instructions* Attachments The following attachments cannot be sent through Care Everywhere. * Pelvic floor muscle exercises ([place] African) documented in this encounterProStyleUp SystemInstructionsNot on file documented in this encounterProStyleUp SystemProgress note No data available for this section General Surgery [employer] Reason for referral (narrative)* Consultation (Routine) - Pending Review Specialty Diagnoses / Procedures Referred By Carlos white Referred To Contact Rheumatology Diagnoses Fibromyalgia Procedures MT OFFICE/OUTPATIENT NEW HIGH MDM 60 MINUTES Angel Luis Groves NP [address] [place] [phone] Tyson Collazo MD [address] [place] [address] Referral ID Status Reason Start Date Expiration Date Visits Requested Visits Authorized [id number] Pending Review Specialty Services Required 03/13/2024 09/09/2024 [...] DATE CREATED AUTHOR 11/16/2018 [facility] DATE CREATED AUTHOR AUTHOR'S ORGANIZ ATION 06/05/2022 [facility] DATE CREATED AUTHOR AUTHOR'S ORGANIZ ATION 04/09/2023 [facility] DATE CREATED AUTHOR AUTHOR'S ORGANIZ ATION 03/20/[address] [facility] DATE CREATED AUTHOR AUTHOR'S ORGANIZ ATION 04/29/2024 [facility] DATE CREATED AUTHOR AUTHOR'S ORGANIZ ATION 01/31/2025 [facility] DATE CREATED AUTHOR AUTHOR'S ORGANIZ ATION 02/10/2025 [facility] DATE CREATED AUTHOR AUTHOR'S ORGANIZ ATION 03/08/2025 [facility] Specialists EPIC REASON FOR VISIT (unrecogniz ed section and content) Reason Comments Med Refill Reason Onset Date Comments Med Refill 06/03/2024 Reason Onset Date Comments Med Refill 06/25/2024 Reason Comments Follow-up CONSTIPATION, PT HAS HAD THREE BM'S SINCE LAST VISIT. PT IS STILL HAVING ABDOMINAL PAIN. [facility] Reason Comments Follow-up [...] Bipolar disorder with severe depression (HCC) Procedures MT OFFICE/OUTPATIENT NEW HIGH MDM 60 MINUTES Pascale Arana NP [address] [place] [address] Phone: tel: fax:[phone] Eunice Dias, PMHNP-BC [address] [facility] [place] [address] Phone: tel: fax: Referral ID Status Reason Start Date Expiration Date V isits Requested Visits Authorized [id number] Closed Specialty Services Required 01/06/2025 07/05/2025 1 1 Reason Comments New Patient New Patient presents for evaluation of a possible rectocele. Reason Comments Med Management Follow-up Reason Comments Bipolar disorder with severe depression Reason Comments Anxiety Depression PTSD (Post-Traumatic Stress Disorder) Patient Care team informatio n (unrecognized section and content) Education Counselor Relationship Specialty Start Date End Date Shaikh Main MD PCP - General Internal Medicine 04/20/23 Team Status: Active Member Role Status Dates Conrad Ahn DO Attending Provider Active Sta rt: February 26, 2024 Team Status: Inactive Member Role Status Dates Tyson Collazo MD Attending Provider Active St art: April 18, 2024 End: April 18, 2024 Education Counselor Relationship Specialty Start Date End Date Molina De Anda MD [address] [place] [address] PCP - General Family Medicine 02/21/24 Angel Luis Groves NP [address] [place] [address] Nurse Practitioner Family Medicine 02/21/24 Education Counselor Relationship Specialty Start Date End Date Molina De Anda MD [address] [place] [address] PCP - General Family Medicine 02/21/24 Angel Luis Groves NP [address] [place] [address] Nurse Practitioner Family Medicine 02/21/24 Education Counselor Relationship Specialty Start Date End Date Molina De Anda MD [address] [place] [address] PCP - General Family Medicine 02/21/24 Angel Luis Groves NP [address] [place] [address] Nurse Practitioner Family Medicine 02/21/24 Education Counselor Relationship Specialty Start Date End Date Molina De Anda MD [address] [place] [address] PCP - General Family Medicine 02/21/24 Angel Luis Groves NP [address] [place] [address] Nurse Practitioner Family Medicine 02/21/24 Education Counselor Relationship Specialty Start Date End Date Molina De Anda MD [address] [place] [address] PCP - General Family Medicine 02/21/24 Angel Luis Groves NP [address] [place] [address] Nurse Practitioner Family Medicine 02/21/24 Education Counselor Relationship Specialty Start Date End Date Molina De Anda MD [address] [place] [address] PCP - General Family Medicine 02/21/24 Angel Luis Groves NP [address] [place] [address] Nurse Practitioner Family Medicine 02/21/24 Education Counselor Relationship Specialty Start Date End Date Molina De Anda MD [address] [place] [address] PCP - General Family Medicine 02/21/24 Angel Luis Groves NP [address] [place] [address] Nurse Practitioner Family Medicine 02/21/24 Education Counselor Relationship Specialty Start Date End Date Molina De Anda MD [address] [place] [address] PCP - General Family Medicine 02/21/24 Angel Luis Groves NP [address] [place] [address] Nurse Practitioner Family Medicine 02/21/24 Education Counselor Relationship Specialty Start Date End Date Molina De Anda MD [address] [place] [address] PCP - General Family Medicine 02/21/24 Angel Luis Groves NP [address] [place] [address] Nurse Practitioner Family Medicine 02/21/24 Education Counselor Relationship Specialty Start Date End Date Molina De Anda MD [address] [place] [address] PCP - General Family Medicine 02/21/24 Angel Luis Groves NP [address] [place] [address] Nurse Practitioner Family Medicine 02/21/24 Education Counselor Relationship Specialty Start Date End Date Molina De Anda MD [address] [place] [address] PCP - General Family Medicine 02/21/24 Angel Luis Groves NP [address] [place] [address] Nurse Practitioner Family Medicine 02/21/24 Education Counselor Relationship Specialty Start Date End Date Molina De Anda MD [address] [place] [address] PCP - General Family Medicine 02/21/24 Angel Luis Groves NP [address] [place] [address] Nurse Practitioner Family Medicine 02/21/24 Education Counselor Relationship Specialty Start Date End Date Molina De Anda MD [address] [place] [address] PCP - General Family Medicine 02/21/24 Angel Luis Groves NP [address] [place] [address] Nurse Practitioner Family Medicine 02/21/24 Education Counselor Relationship Specialty Start Date End Date Molina De Anda MD [address] [place] [address] PCP - General Family Medicine 02/21/24 Angel Luis Groves NP [address] [place] [address] Nurse Practitioner Family Medicine 02/21/24 Education Counselor Relationship Specialty Start Date End Date Molina De Anda MD [address] [place] [address] PCP - General Family Medicine 02/21/24 Angel Luis Groves NP [address] [place] [address] Nurse Practitioner Family Medicine 02/21/24 Education Counselor Relationship Specialty Start Date End Date Molina De Anda MD [address] [place] [address] PCP - General Family Medicine 02/21/24 Angel Luis Groves NP [address] [place] [address] Nurse Practitioner Family Medicine 02/21/24 Education Counselor Relationship Specialty Start Date End Date Molina De Anda MD [address] [place] [address] PCP - General Family Medicine 02/21/24 Angel Luis Groves NP [address] [place] [address] Nurse Practitioner Family Medicine 02/21/24 Education Counselor Relationship Specialty Start Date End Date Molina De Anda MD [address] [place] [address] PCP - General Family Medicine 02/21/24 Angel Luis Groves NP [address] [place] [address] Nurse Practitioner Family Medicine 02/21/24 Education Counselor Relationship Specialty Start Date End Date Molina De Anda MD [address] [place] [address] PCP - General Family Medicine 02/21/24 Angel Luis Groves NP [address] [place] [address] Nurse Practitioner Family Medicine 02/21/24 Education Counselor Relationship Specialty Start Date End Date Molina De Anda MD [address] [place] [address] PCP - General Family Medicine 02/21/24 Angel Luis Groves NP [address] [place] [address] Nurse Practitioner Family Medicine 02/21/24 Education Counselor Relationship Specialty Start Date End Date Molina De Anda MD [address] [place] [address] PCP - General Family Medicine 02/21/24 Angel Luis Groves NP [address] [place] [address] Nurse Practitioner Family Medicine 02/21/24 Education Counselor Relationship Specialty Start Date End Date Molina De Anda MD [address] [place] [address] PCP - General Family Medicine 02/21/24 Angel Luis Groves NP [address] [place] [address] Nurse Practitioner Family Medicine 02/21/24 Education Counselor Relationship Specialty Start Date End Date Molina De Anda MD [address] [place] [address] PCP - General Family Medicine 02/21/24 Angel Luis Groves NP [address] [place] [address] Nurse Practitioner Family Medicine 02/21/24 Education Counselor Relationship Specialty Start Date End Date Molina De Anda MD [address] [place] [address] PCP - General Family Medicine 02/21/24 Angel Luis Groves NP [address] [place] [address] Nurse Practitioner Family Medicine 02/21/24 Education Counselor Relationship Specialty Start Date End Date Molina De Anda MD [address] [place] [address] PCP - General Family Medicine 02/21/24 Angel Luis Groves NP [address] [place] [address] Nurse Practitioner Family Medicine 02/21/24 Education Counselor Relationship Specialty Start Date End Date Molina De Anda MD [address] [place] [address] PCP - General Family Medicine 02/21/24 Angel Luis Groves NP [address] [place] [address] Nurse Practitioner Family Medicine 02/21/24 Education Counselor Relationship Specialty Start Date End Date Molina De Anda MD [address] [place] [address] PCP - General Family Medicine 02/21/24 Angel Luis Groves NP [address] [place] [address] Nurse Practitioner Family Medicine 02/21/24 Education Counselor Relationship Specialty Start Date End Date Molina De Anda MD [address] [place] [address] PCP - General Family Medicine 02/21/24 Angel Luis Groves NP [address] [place] [address] Nurse Practitioner Family Medicine 02/21/24 Education Counselor Relationship Specialty Start Date End Date Molina De Anda MD [address] [place] [address] PCP - General Family Medicine 02/21/24 Angel Luis Groves NP [address] [place] [address] Nurse Practitioner Family Medicine 02/21/24 Education Counselor Relationship Specialty Start Date End Date Molina De Anda MD [address] [place] [address] PCP - General Family Medicine 02/21/24 Angel Luis Groves NP [address] [place] [address] Nurse Practitioner Family Medicine 02/21/24 Education Counselor Relationship Specialty Start Date End Date Molina De Anda MD [address] [place] [address] PCP - General Family Medicine 02/21/24 Angel Luis Groves NP [address] [place] [address] Nurse Practitioner Family Medicine 02/21/24 Education Counselor Relationship Specialty Start Date End Date Molina De Anda MD [address] [place] [address] PCP - General Family Medicine 02/21/24 Angel Luis Groves NP [address] [place] [address] Nurse Practitioner Family Medicine 02/21/24 Education Counselor Relationship Specialty Start Date End Date Molina De Anda MD [address] [place] [address] PCP - General Family Medicine 02/21/24 Angel Luis Groves NP [address] [place] [address] Nurse Practitioner Family Medicine 02/21/24 Education Counselor Relationship Specialty Start Date End Date Molina De Anda MD [address] [place] [address] PCP - General Family Medicine 02/21/24 Angel Luis Groves NP [address] [place] [address] Nurse Practitioner Family Medicine 02/21/24 Education Counselor Relationship Specialty Start Date End Date Molina De Anda MD [address] [place] [address] PCP - General Family Medicine 02/21/24 Angel Luis Groves NP [address] [place] [address] Nurse Practitioner Family Medicine 02/21/24 Education Counselor Relationship Specialty Start Date End Date Molina De Anda MD [address] [place] [address] PCP - General Family Medicine 02/21/24 Angel Luis Groves NP [address] [place] [address] Nurse Practitioner Family Medicine 02/21/24 Education Counselor Relationship Specialty Start Date End Date Molina De Anda MD [address] [place] [address] PCP - General Family Medicine 02/21/24 Angel Luis Groves NP [address] [place] [address] Nurse Practitioner Family Medicine 02/21/24 Education Counselor Relationship Specialty Start Date End Date Molina De Anda MD [address] [place] [address] PCP - General Family Medicine 02/21/24 Angel Luis Groves NP [address] [place] [address] Nurse Practitioner Family Medicine 02/21/24 Education Counselor Relationship Specialty Start Date End Date Molina De Anda MD [address] [place] [address] PCP - General Family Medicine 02/21/24 Angel Luis Groves NP [address] [place] [address] Nurse Practitioner Family Medicine 02/21/24 Education Counselor Relationship Specialty Start Date End Date Molina De Anda MD [address] [address] PCP - General Family Medicine 02/21/24 Angel Luis Groves NP [address] [place] [address] Nurse Practitioner Family Medicine 02/21/24 Eunice Dias, [facility] [address] [place] [address] [place] [address] Nurse Practitioner Behavioral Health 01/22/25 Education Counselor Relationship Specialty Start Date End Date Molina De Anda MD [address] [place] [address] PCP - General Family Medicine 02/21/24 Angel Luis Groves, MARY JO [address] [place] [address] Nurse Practitioner Family Medicine 02/21/24 Eunice Dias [facility] [address] [facility] [address] [place] [address] Nurse Practitioner Behavioral Health 01/22/25 Education Counselor Relationship Specialty Start Date End Date Molina De Anda MD [address] [place] [address] PCP - General Family Medicine 02/21/24 Angel Luis Groves NP [address] [place] [address] Nurse Practitioner Family Medicine 02/21/24 Eunice Dias [facility] [address] [facility] [address] [place] [address] Nurse Practitioner [facility] 01/22/25 Education Counselor Relationship Specialty Start Date End Date No Pcp, [place] [address] PCP - General Family Medicine 11/21/18 Education Counselor Relationship Specialty Start Date End Date Molina De Anda MD [address] [place] [address] PCP - General Family Medicine 02/21/24 Angel Luis Groves NP [address] [place] [address] Nurse Practitioner Family Medicine 02/21/24 Eunice Dias [facility] [address] [facility] [place] [address] Nurse Practitioner Behavioral Health 01/22/25 Education Counselor Relationship Specialty Start Date End Date Molina De Anda MD [address] [place] [address] PCP - General Family Medicine 02/21/24 Angel Luis Groves, MARY JO [address] [place] [address] Nurse Practitioner Family Medicine 02/21/24 [facility] [address] [facility] [address] [place] [address] Nurse Practitioner Behavioral Health 01/22/25 Education Counselor Relationship Specialty Start Date End Date Molina De Anda MD [address] [place] [address] PCP - General Family Medicine 02/21/24 Angel Luis Groves NP [address] [place] [address] Nurse Practitioner Family Medicine 02/21/24 [facility] [address] [facility] [place] [address] Nurse Practitioner Behavioral Health 01/22/25 Education Counselor Relationship Specialty Start Date End Date Molina De Anda MD [address] [place] [address] PCP - General Family Medicine 02/21/24 Angel Luis Groves NP [address] [place] [address] Nurse Practitioner Family Medicine 02/21/24 [facility] [address] [facility] [address] [place] [address] Nurse Practitioner Behavioral Health 01/22/25 Education Counselor Relationship Specialty Start Date End Date Molina De Anda MD [address] [place] [address] PCP - General Family Medicine 02/21/24 Angel Luis Groves NP [address] [place] [address] Nurse Practitioner Family Medicine 02/21/24 [facility] [address] [facility] [facility] [place] [address] Nurse Practitioner Behavioral Health 01/22/25 Education Counselor Relationship Specialty Start Date End Date No Pcp[place] [address] PCP - General Family Medicine 11/21/18 Education Counselor Relationship Specialty Start Date End Date Molina De Anda MD [address] [place] [phone] PCP - General Family Medicine 02/21/24 Angel Luis Groves NP [address] [place] [phone] Nurse Practitioner Family Medicine 02/21/24 [facility] [address] [facility] [address] [place] [address] Nurse Practitioner Behavioral Health 01/22/25 Education Counselor Relationship Specialty Start Date End Date Naderer, Molina, MD [address] [place] [phone] PCP - General Family Medicine 02/21/24 Angel Luis Groves NP [address] [place] [phone] Nurse Practitioner Family Medicine 02/21/24 [facility] [address] [facility] [address] [place] [phone] Nurse Practitioner Behavioral Health 01/22/25 Education Counselor Relationship Specialty Start Date End Date Molina De Anda MD [address] [place] [phone] PCP - General Family Medicine 02/21/24 Angel Luis Groves NP [address] [place] [phone] Nurse Practitioner Family Medicine 02/21/24 Eunice Dias [facility] [address] [facility] [place] [phone] Nurse Practitioner Behavioral Health 01/22/25 Education Counselor Relationship Specialty Start Date End Date Molina De Anda MD [address] [place] [phone] PCP - General Family Medicine 02/21/24 Angel Luis Groves NP [address] [place] [phone] Nurse Practitioner Family Medicine 02/21/24 Eunice Dias [facility] [address] [facility] [address] [place] [address] Nurse Practitioner Behavioral Health 01/22/25 Rohan Waters LPC Clinical Care Manager Behavioral Health 03/06/25 Goals (unrecognized section and content) Goals may [...] BE BASED ON THE PRIMARY CLINICAL RECORDS. [facility] [employer] [facility]. provides no warranty or guarantee of the accuracy or completeness of information in this document.
[2025-03-10 09:08] VITALS: BP 109/62; PULSE 70; O2SAT 98
[2025-03-10 09:09] VITALS: BP 112/62; PULSE 72; O2SAT 98
[2025-03-10] MEDS: LIDOCAINE HCL 2% 400 MG/20 ML MDV INJ (09:12)
[2025-03-10] MEDS: BUPIVACAINE HCL 0.25% PF 25 MG/10 ML VIAL INJ (09:12)
[2025-03-10] MEDS: DEXAMETHASONE SOD PHOS 10 MG/ML VIAL INJ (09:12)
[2025-03-10] MEDS: IOHEXOL 240 MG/ML - 10 ML VIAL 24 MG INJ (09:12)
--- NOTE | 2025-03-10 09:14 | P.ON_ITS ---
Date of procedure: 03/10/25 Pre-op diagnosis: M54.12 Post-op diagnosis: same as pre-op Procedure: Procedure: Right C5-6, 6-7 transforaminal epidural steroid injection Medications: Bupivacaine 0.25% 1cc, lidocaine 2% 1cc, dexamethasone 10mg The patient was seen and examined in the preoperative holding area.? Informed consent was obtained and placed on the chart.? Patient was brought to the medical procedure unit and placed in the prone position where a timeout was completed verifying the correct patient, procedure site, position, and planned special equipment using sterile aseptic technique.? Under direct fluoroscopic visualization a 25-gauge Quincke tipped spinal needle was advanced to the designated neural foramen where contrast dye was injected to show adequate spread.? The needle was inserted at level right C5-6. There was no evidence of vascular or adverse uptake.? Epidural spread was appreciated.? The above- mentioned injectate was then placed in a 1.5 mL aliquot preceded by negative aspiration.? The needle was removed. The needle was inserted and the procedure repeated at level right C6-7.? The surgery site was covered.? Patient was taken to the postprocedural recovery area and monitored for an appropriate length of time before found suitable for discharge in the accompaniment of a responsible adult. Anesthesia: Local Surgeon: Bandar Eden Pathology: none sent Condition: stable Disposition: no change
== END 2025-03-10 09:19 | disposition home or self-care (01) ==
PROVIDERS: PCP Nurse Practitioner; Visit Provider Anesthesiology
DX: M54.12 Radiculopathy, cervical region (principal)
CPT/HCPCS: 64479; 64480; J0665; J1100; Q9966

== ENCOUNTER 2025-03-21 15:05 | Outpatient (OUT) | payer OTHER, SELFPAY ==
--- NOTE | 2025-03-21 | CT_ITS ---
The [address] [address] Patient Name: KALYN RUTHERFORD MRN: [id number] date: 1970 Sex: F Assigned Patient Location: CT Current Patient Location: CT Accession/Order Number: [id number] Exam Date: 03/21/2025 15:10 Report Date: 03/21/2025 16:47 At the request of: TAWANA FOSTER DPM Procedure: CT foot LT wo con CT foot LT wo con 03/21/2025 3:14 PM SIGNS AND SYMPTOMS: Left foot pain across the top of the foot, status post fusion surgery with suspected nonunion TECHNIQUE: Multidetector CT axial slices of the left foot without IV contrast. Multiplanar reformats were performed and viewed on a separate workstation and reviewed to further define anatomy and possible pathology. CT was performed with one or more of the following dose reduction techniques: Automated exposure control, adjustment of the mA and/or kV according to patient size, or use of iterative reconstruction technique. COMPARISON: 02/19/2025 FINDINGS: There is fusion hardware traversing the second and third tarsometatarsal junctions with lucency surrounding the screws most notably at the third tarsometatarsal junction. There is incomplete bony fusion across the joint spaces. No evidence of hardware fracture. There is diffuse soft tissue swelling which is nonspecific. There is a remote hardware tracks in the distal tibia. There is plantar surface calcaneal spurring. No fracture or dislocation. CT/CT foot LT wo con IMPRESSION: There is fusion hardware traversing the second and third tarsometatarsal junctions with lucency surrounding the screws most notably at the third tarsometatarsal junction. There is incomplete bony fusion across the joint spaces. No evidence of hardware fracture. Additional chronic appearing findings are noted as above. Impression dictated by: Hal Echeverria M.D. 03/21/2025 4:47 PM Dictation Location: [address] Electronically authenticated by: [id number] Y Date: 03/21/2025 16:47
--- OUTSIDE RECORDS SUMMARY | 2025-03-21 15:11 | XMS_ITS | CCD ---
Author Organization [facility] CliniSyct Care Team Providers Care Silk Screen Printer Helper Name Role Phone PHYSICIAN, DEFAULT Admitting Unavailable PHYSICIAN, DEFAULT Attending Unavailable HOUSE, ROBERTO Primary Care Unavailable Kristin Quintana Unavailable KAJAL ECSOBEDO Admitting Unavailable MEET, KAJAL Attending Unavailable TYLER, [...] KAJAL Admitting Unavailable MEET, KAJAL Consulting Unavailable GARRETANDER, TAWANA Dong Admitting Unavailable HIGHLANDER, TAWANA Dong Attending Unavailable TYLER, DR VILLALOBOS Primary Care Unavailable HIGHLANDER, TAWANA Dong Consulting Unavailable HILLBASHIR Consulting Unavailable HIGHLANDER, TAWANA Dong Admitting Unavailable HIGHLANDER, TAWANA Dong Attending Unavailable TYLER, DR VILLALOBOS Primary Care Unavailable DAMON, DR ELLIOT Denis Consulting Unavailable HIGHLSHAMIKA, TAWANA Dnog Consulting Unavailable AGUBOSIMEYAL Consulting Unavailable LYDIA ., ANITA LUU Consulting Unavailable REBECCA BARCENAS Consulting Unavailable ROMMEL, DR TAMIKO Dickens Consulting Unavailable TYLER, DR VILLALOBOS Primary Care Unavailable MEET, KAJAL Attending Unavailable MEET, KAJAL Admitting Unavailable MEET, KAJAL Consulting Unavailable TYLER, DR VILLALOBOS Admitting Unavailable HOUSE, DR VILLALOBOS Attending Unavailable HOUSE, DR VILLALOBOS Primary Care Unavailable HOUSE, DR VILLALOBOS Consulting Unavailable HIGHLSHAMIKA, TAWANA Dong Admitting Unavailable HIGHLANDER, TAWANA Dong Attending Unavailable HOUSE, DR VILLALOBOS Primary Care Unavailable ROMMEL, DR TAMIKO Dickens Consulting Unavailable HIGHLSHAMIKA, TAWANA Dong Consulting Unavailable HIGHLSHAMIKA, TAWANA Dong Admitting Unavailable HIGHLANDER, TAWANA Dong Attending Unavailable HOUSE, DR VILLALOBOS Primary Care Unavailable DAMON, DR ELLIOT Denis Consulting Unavailable HIGHLSHAMIKATAWANA Consulting Unavailable CAROL WEBB Attending Unavailable CAROL WEBB Attending Unavailable SHAIKH MAIN Primary Care Physician Shaikh Main MD Primary Care Provider [phone] Ron Palomares Attending Unavailable Segun HOLLOWAY Attending Unavailable Segun HOLLOWAY Attending Unavailable MD Tyson Collazo Attending Provider Tyson Collazo Attending Unavailable Tyson Collazo Admitting Unavailable Molina De Anda MD Primary Care Provider [place] NET APPLICATION ARCHITECT, Angel Luis Unavailable [phone] [place] NET APPLICATION ARCHITECT, Angel Luis Unavailable Arun PMHNP-, Eunice Unavailable No Pcp, No Pcp Primary Care Provider UnavailSHELIA Kohler Attending Unavailable NO PCP, NO PCP Primary Care Unavailable Rohan Waters [facility] Unavailable Unavailable GROVES, ANGEL LUIS Attending Unavailabl e AICHHOLZ, PASCALE Attending Unavailable AICHHOLZ, PASCALE Attending Unavailable AICHHOLZ, PASCALE Attending Unavailable AICHHOLZ, PASCALE Attending Unavailable DIASMINAL KINGSLEYDITH Attending Unavailable AICHHOLZ, PASCALE Referring Unavailable DIASMINALEUNICE Attending Unavailable AICHHOLZ, PASCALE Attending Unavailable ROAHN WATERS Attending Unavailable GROVES, ANGEL LUIS Attending Unavailabl e GROVES, ANGEL LUIS Attending Unavailabl e GROVES, ANGEL LUIS Attending Unavailabl e AICHHOLZ, PASCALE Attending Unavailable Meek WELLER, Andrius Vytautas Attending Unavailable Meek WELLER, Andrius Vytautas Attending Unavailable Allergies Allergy Classification Reported Allergen(s) Allergy Type Date of Onset Reaction(s) Facility (2 sources) penciclovir; Translations: [penciclovir] Drug Allergy 2 [facility] Repository (6 sources) Penicillins; Translations: [PENICILLINS] Drug allergy (disorder) 4 [facility] Repository (20 sources) Penicillin G Drug Allergy 3 Unknown [facility] Healthcare (20 sources) Penicillins Propensity to adverse reactions 3 Hives [facility] (2 sources) Penicillins Propensity to adverse reactions to drug [facility] Work Phone: Medications Current Medications Medication Drug Class(es) Dates Sig (Normalized) Sig (Original) [id number] 200 actuat albuterol 0.09 mg/actuat metered dose [...] (20 sources) Atypical Antipsychotic Start: 02-24-2025 End: 09-03-2025 take 1 capsule by mouth once daily [...] capsule (300 mg) before bedtime. 90 capsule 11/18/2024 Active Start: 06-11-2024 End: 12-18-2024 take [...] capsule (300 mg) before bedtime. 90 capsule 11/18/2024 Active lactulose 667 mg/ml oral solution [...] given by office. 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 CURRENT DRUG THERAPY] Onset: 2 Episodic Other [...] WITH AUTO DIFFon BASOPHILS ABSOLUTE AUTO 0.1 [facility] Basophils/100 WBC (Bld) 1.2 % 0.2 - 2.0 % [facility] Eosinophils/100 WBC (Bld) 7.9 % High 0.9 - 7.0 % [facility] Erythrocyte distribution width (RBC) [Ratio] 15.3 % High 11.0 - 15.0 % [facility] Hematocrit (Bld) [Volume fraction] 37.2 % 36.0 - 48.0 % [facility] Hemoglobin (Bld) [Mass/Vol] 11.8 g/dL Low 12.0 - 16.0 g/dL [facility] IMMATURE GRANULOCYTES ABS AUTO 0.02 [facility] Immature granulocytes/100 WBC (Bld) 0.3 % 0.0 - 0.5 % [facility] Interpretation and review of laboratory results Abnormal [facility] LYMPHOCYTES ABSOLUTE AUTO 2.3 [facility] Lymphocytes/100 WBC (Bld) 35.2 % 20.5 - 60.0 % [facility] MCH (RBC) [Entitic mass] 31.1 pg 26.7 - 34.0 pg [facility] MCHC (RBC) [Mass/Vol] 31.7 g/dL 29.9 - 35.2 g/dL [facility] MCV (RBC) [Entitic vol] 98.2 fL 81.0 - 99.0 fL [facility] MONOCYTES ABSOLUTE [facility]O [facility].4 [facility] Monocytes/100 WBC (Bld) 5.5 % 1.7 - 12.0 % [facility] NEUTROPHILS ABSOLUTE AUTO 3.3 [facility] Neutrophils/100 WBC (Bld) 49.9 % 43.0 - 75.0 % [facility] Platelet mean volume (Bld) [Entitic vol] 10 fL 9.5 - 13.5 fL [facility] EO # 0.5 [facility] PLT 255 [facility] RBC 3.79 Low [facility] WBC 6.6 [facility] SEGMENTAL BLOOD PRESSUREon 0 02-27-2025 [place] [address] Cardiology Report Signed Patient: TALIA RUTHERFORD MR#: [id number] : 1970 Acct:[id number] Age/Sex: 54 / F ADM Date: 02/26/25 Loc: CARD Attending Dr: Kajal LAZAR Ordering Physician: Kajal Escobedo Date of Service: 02/26/25 Procedure(s): CA segmental UE or LE PONCE Accession Number(s): [id number] cc: Pascale Arana NP; Kajal Escobedo [facility] Test Date: 2025-02-26 Pat Name: TALIA RUTHERFORD Department: Room: - Gender: Female Education Technician: Cari Nichole : 1970 Requested By: Kajal Escobedo Order Number: [id number] Garth MD: SCOTT PARKINSON M.D. Interpretive Statements [...] Dictated By: SCOTT PARKINSON Signed By: 02/27/25 0902/27/25 09 DD/ 1534 TD/TT: Fingernail Sculpturer: [facility] Radiology, Radiologi MD blanche - 02/27/2025 [place] [address] Cardiology Report Signed Patient: TALIA RUTHERFORD MR#: [id number] : 1970 Acct:[id number] Age/Sex: 54 / F ADM Date: 02/26/25 Loc: CARD Attending Dr: Kajal LAZAR Ordering Physician: Kajal Escobedo Date of Service: 02/26/25 Procedure(s): CA segmental UE or LE PONCE Accession Number(s): [id number] cc: Pascale Arana NP; Kajal Escobedo [facility] Test Date: 2025-02-26 Pat Name: TALIA RUTHERFORD Department: Room: - Gender: Female Education Technician: Cari Nichole : 1970 Requested By: Kajal Escobedo Order Number: [id number] Reading MD: SCOTT PARKINSON M.D. Interpretive Statements [...] Dictated By: SCOTT PARKINSON Signed By: 02/27/25 0902/27/25 09 DD/ 1534 TD/TT: Fingernail Sculpturer: [facility] SEGMENTAL BLOOD PRESSUREOrde red By: Radiologist Radiology on 02-27-2025 [facility] Work Phone: SEGMENTAL BLOOD PRESSUREon 0 02-26-2025 Radiology Study observation (narrative) [facility] XR FOOT LT MIN 3Von 02-20-20 [place] [address] XRay Report Signed Patient: TALIA RUTHERFORD MR#: [id number] : 1970 Acct:[id number] Age/Sex: 54 / F ADM Date: 02/19/25 Loc: RAD Attending Dr: Kajal LAZAR Ordering Physician: Kajal Escobedo Date of Service: 02/19/25 Procedure(s): XR foot LT min 3V Accession Number(s): [id number] cc: Pascale Arana NET APPLICATION ARCHITECT; Kajal Escobedo [place] [id number] Patient Name: TALIA RUTHERFORD MRN: [id number] date: 1970 Sex: F Assigned Patient Location: [facility] Current Patient Location: [facility] Accession/Order Number: [id number] Exam Date: 02/19/2025 10:39 Report Date: 02/19/2025 15:03 At the request of: KAJAL MEET PA Procedure: XR foot LT min 3V LEFT [...] Jr., D.O. 02/19/2025 3:03 PM Dictation Location: [place] [address] Electronically authenticated by: [id number] Y Date: 02/19/2025 15:03 Dictated By: Merlin Massey M.D. Signed By: 02/19/25 1506 DD/ 1503 TD/TT: Fingernail Sculpturer: [facility] Radiology Radiologi MD blanche - 02/19/2025 [place] [address] XRay Report Signed Patient: TALIA RUTHERFORD MR#: [id number] : 1970 Acct:[id number] Age/Sex: 54 / F ADM Date: 02/19/25 Loc: [facility] Attending Dr: Kajal LAZAR Ordering Physician: Kajal Escobedo Date of Service: 02/19/25 Procedure(s): XR foot LT min 3V Accession Number(s): [id number] cc: Pascale Arana NET APPLICATION ARCHITECT; Kajal Escobedo The [place] [id number] Patient Name: TALIA RUTHERFORD MRN: [facility]:[id number] date: 1970 Sex: F Assigned Patient Location: [facility] Current Patient Location: [facility] Accession/Order Number: [id number] Exam Date: 02/19/2025 10:39 Report Date: 02/19/2025 [...] Jr., D.O. 02/19/2025 3:03 PM Dictation Location: [place] [address] Electronically authenticated by: [id number] Y Date: 02/19/2025 15:03 Dictated By: Merlin Massey M.D. Signed By: 02/19/25 1506 DD/ 1503 TD/TT: Fingernail Sculpturer: [facility] Radiology Study observation (narrative) [facility] XR FOOT LT MIN 3VOrdered By: Radiologist Radiology on 02-19-2025 [facility] Work Phone: MR Cervical spine WO contras ton 02-05-2025 [place] [address] Magnetic Resonance Report Signed Patient: TALIA RUTHERFORD MR#: [id number] : 1970 Acct:[id number] Age/Sex: 54 / F ADM Date: 02/04/25 Loc: MRI Attending Dr: Flores Eedn M.D. Ordering Physician: Flores Eden M.D. Date of Service: 02/04/25 Procedure(s): MR cervical spine wo con Accession Number(s): [id number] cc: Pascale Arana NET APPLICATION ARCHITECT; Flores Eden M.D. The [place] [id number] Patient Name: TALIA RUTHERFORD MRN: [id number] date: 1970 Sex: F Assigned Patient Location: MRI Current Patient Location: Accession/Order Number: [id number] Exam Date: 02/05/2025 12:10 Report Date: 02/05/2025 [...] Uncovertebral spurring greatest right. Moderate right and qhvg-mo-rongrxld left-sided neural foraminal narrowing. Mild canal narrowing. C5-6: Broad-based disc bulge with uncovertebral spurring, greatest left. Moderate right-sided moderate to severe left-sided neural foraminal narrowing. Mild central canal stenosis. C6-C7: Broad-based disc osteophyte complex with uncovertebral spurring. Xylz-cs-eugqaald right moderate severe left neural foraminal narrowing. Lgru-tv-agqeqpaq canal narrowing. C7-T1: Minimal vertebral hypertrophy. Moderate facet arthropathy. Canal and patent. Mild foraminal narrowing. MR/MR cervical spine wo con IMPRESSION: Overall multilevel degenerative changes with up to livd-nh-qkvifqii central canal narrowing. Multilevel foraminal encroachment as noted above. Impression dictated by: Mushtaq Antony M.D. 02/05/2025 12:16 PM Dictation Location: [place] [address] Electronically authenticated by: [id number] Y Date: 02/05/2025 12:16 Dictated By: Mushtaq Antony M.D. Signed By: 02/05/25 1218 DD/ 1216 TD/TT: Fingernail Sculpturer: [facility] Radiology, Radiolograndall mancia MD - 02/05/2025 [place] [address] Magnetic Resonance Report Signed Patient: TALIA RUTHERFORD MR#: [id number] : 1970 Acct:[id number] Age/Sex: 54 / F ADM Date: 02/04/25 Loc: MRI Attending Dr: Flores Eden M.D. Ordering Physician: Flores Eden M.D. Date of Service: 02/04/25 Procedure(s): MR cervical spine wo con Accession Number(s): [id number] cc: Pascale Arana NET APPLICATION ARCHITECT; Flores Eden M.D. [place] [address] Patient Name: TALIA RUTHERFORD MRN: [id number] date: 1970 Sex: F Assigned Patient Location: MRI Current Patient Location: Accession/Order Number: [id number] Exam Date: 02/05/2025 12:10 Report Date: 02/05/2025 [...] Uncovertebral spurring greatest right. Moderate right and xtxd-yv-jyvboeze left-sided neural foraminal narrowing. Mild canal narrowing. C5-6: Broad-based disc bulge with uncovertebral spurring, greatest left. Moderate right-sided moderate to severe left-sided neural foraminal narrowing. Mild central canal stenosis. C6-C7: Broad-based disc osteophyte complex with uncovertebral spurring. Uvrd-mb-jhxoyneh right moderate severe left neural foraminal narrowing. Uyxd-ub-mmvjwopu canal narrowing. C7-T1: Minimal vertebral hypertrophy. Moderate facet arthropathy. Canal and patent. Mild foraminal narrowing. MR/MR cervical spine wo con IMPRESSION: Overall multilevel degenerative changes with up to pevo-op-osfexexm central canal narrowing. Multilevel foraminal encroachment as noted above. Impression dictated by: Mushtaq Antony M.D. 02/05/2025 12:16 PM Dictation Location: [place] [address] Electronically authenticated by: [id number] Y Date: 02/05/2025 12:16 Dictated By: Mushtaq Antony M.D. Signed By: 02/05/25 1218 DD/ 1216 TD/TT: Fingernail Sculpturer: [facility] Radiology Study observation (narrative) [facility] MR Cervical spine WO contras tOrdered By: Radiologist Radiology on 02-05-2025 [facility] Work Phone: [place] [address] Magnetic Resonance Report Signed Patient: TALIA RUTHERFORD MR#: [id number] : 1970 Acct:[id number] Age/Sex: 54 / F ADM Date: 02/04/25 Loc: MRI Attending Dr: Flores Eden M.D. Ordering Physician: Flores Eden M.D. Date of Service: 02/04/25 Procedure(s): MR lumbar spine wo con Accession Number(s): [id number] cc: Pascale Arana NET APPLICATION ARCHITECT; Flores Eden M.D. The [place] [id number] Patient Name: TALIA RUTHERFORD MRN: [id number] date: 1970 Sex: F Assigned Patient Location: MRI Current Patient Location: Accession/Order Number: [id number] Exam Date: 02/05/2025 12:16 Report Date: 02/05/2025 [...] Circumferential disc bulge with moderate facet arthropathy. Pnvw-vo-dhmcbatx right-sided and mild left-sided neural foraminal narrowing . 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 Impression dictated by: Mushtaq Antony M.D. 02/05/2025 2:18 PM Dictation Location: [place] [address] Electronically authenticated by: [id number] Y Date: 02/05/2025 14:18 Dictated By: Mushtaq Antony M.D. Signed By: 02/05/25 1421 DD/ 1418 TD/TT: Fingernail Sculpturer: [facility] RadiologyJenniferograndall mancia MD - 02/05/[address] [address] Magnetic Resonance Report Signed Patient: TALIA RUTHERFORD MR#: [id number] : 1970 Acct:[id number] Age/Sex: 54 / F ADM Date: 02/04/25 Loc: MRI Attending Dr: Flores Eden M.D. Ordering Physician: Flores Eden M.D. Date of Service: 02/04/25 Procedure(s): MR lumbar spine wo con Accession Number(s): [id number] cc: Pascale Arana NP; Flores Eden M.D. [place] [address] Patient Name: TALIA RUTHERFORD MRN: [facility]:[id number] date: 1970 Sex: F Assigned Patient Location: MRI Current Patient Location: Accession/Order Number: [id number] Exam Date: 02/05/2025 12:16 Report Date: 02/05/2025 [...] Circumferential disc bulge with moderate facet arthropathy. Iqkk-ad-bsuvgrhd right-sided and mild left-sided neural foraminal narrowing . 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 Impression dictated by: Mushtaq Antony M.D. 02/05/2025 2:18 PM Dictation Location: [place] [address] Electronically authenticated by: [id number] Y Date: 02/05/2025 14:18 Dictated By: Mushtaq Antony M.D. Signed By: 02/05/25 1421 DD/ 1418 TD/TT: Fingernail Sculpturer: [facility] Radiology Study observation (narrative) [facility] MR LUMBAR SPINE WO CONOrdere d By: Radiologist Radiology on 02-05-2025 [facility] Work Phone: ALL CBC WITH AUTO DIFFon BASOPHILS ABSOLUTE AUTO 0.1 [facility] Basophils/100 WBC (Bld) 1 % 0.2 - 2.0 % [facility] Eosinophils/100 WBC (Bld) 6.9 % 0.9 - 7.0 % [facility] Erythrocyte distribution width (RBC) [Ratio] 15.6 % High 11.0 - 15.0 % [facility] Hematocrit (Bld) [Volume fraction] 36.2 % 36.0 - 48.0 % [facility] Hemoglobin (Bld) [Mass/Vol] 11.8 g/dL Low 12.0 - 16.0 g/dL [facility] IMMATURE GRANULOCYTES ABS AUTO 0.01 [facility] Immature granulocytes/100 WBC (Bld) 0.2 % 0.0 - 0.5 % [facility] Interpretation and review of laboratory results Abnormal [facility] LYMPHOCYTES ABSOLUTE AUTO 1.9 [facility] Lymphocytes/100 WBC (Bld) 32 % 20.5 - 60.0 % [facility] MCH (RBC) [Entitic mass] 28.6 pg 26.7 - 34.0 pg [facility] MCHC (RBC) [Mass/Vol] 32.6 g/dL 29.9 - 35.2 g/dL [facility] MCV (RBC) [Entitic vol] 87.9 fL 81.0 - 99.0 fL [facility] MONOCYTES ABSOLUTE AUTO 0.3 [facility] Monocytes/100 WBC (Bld) 5.4 % 1.7 - 12.0 % [facility] NEUTROPHILS ABSOLUTE AUTO 3.3 [facility] Neutrophils/100 WBC (Bld) 54.5 % 43.0 - 75.0 % [facility] Platelet mean volume (Bld) [Entitic vol] 9.6 fL 9.5 - 13.5 fL [facility] EO # 0.4 [facility] PLT 273 [facility] RBC 4.12 Low [facility] WBC 6.1 [facility] IGP,APTIMA HPV,AGE GDLNon AGE GDLN ACOG TESTING Note . [facility] Comment on above: TESTS RESULT FLAG UN ITS REF RANGE LAB Clinician Provided Cytology Information Source.............Cervix;Endocervix No. of containers..01 ThinPrep Vial Age Algo ACOG Fiorella... 30-65 FLAG LEGEND: L-Low Normal,H-High Normal,LL-Alert Low,HH-Alert High <-Panic Low,>-Panic High,A-Abnormal,AA-Critical Abnormal Performed at: 01 =G [facility] [address] Monika Norton MD, HPV APTIMA Positive Abnormal Negative [facility] Comment on above: This nucleic acid am plification test detects fourteen high- risk HPV types (16,18,31,33,35,39,45,51,52,56,58,59,66,68) without differentiation. HPV GENOTYPE 16 Negative Negative [facility] HPV GENOTYPE 18,45 Negative Negative [facility] Comment on above: Performed at: =G - [facility] [address] [facility], [place] [id number] Rehabilitation Worker: Monika Norton MD, Phone: [phone] Performed at: WB - [facility] [address] [facility], [place] [id number] Rehabilitation Worker: Monika Norton MD, Phone: [phone] IGP, APTIMA HPV, RFX 16/18,45 Note . [facility] Comment on above: TESTS RESULT FLAG UN ITS REF RANGE LAB DIAGNOSIS: 02 NEGATIVE FOR INTRAEPITHELIAL LESION OR MALIGNANCY. Specimen adequacy: 02 Satisfactory for evaluation. Endocervical and/or squamous metaplastic cells (endocervical component) are present. Performed by: 02 Carrol Guerrero, Calender Operator . 02 Note: Note 02 The [...] Low,>-Panic High,A-Abnormal,AA-Critical Abnormal Performed at: [address] [address] Monika Norton MD, Interpretation and review of laboratory results Abnormal [facility] BRUSH-ALONE CERVIX ENDOCERVIX [facility] MM TOMOSYNTHESIS SCREENING B Ion 10-23-2024 [place] [address] Mammography Report Signed Patient: TALIA RUTHERFORD MR#: [id number] : 1970 Acct:[id number] Age/Sex: 54 / F ADM Date: 10/23/24 Loc: MAMMO Attending Dr: Pascale Arana NP Ordering Physician: Pascale Arana NP Results: Date of Service: 10/23/24 Follow Up: Procedure(s): MM tomosynthesis screening BI Accession Number(s): [id number] cc: Pascale Arana NP Patient Name: TALIA RUTHERFORD MR#: [id number] : 1970 Exam Date: 10/23/2024 Ordering Doctor: [...] breast cancer at age 51. LOCATION: [facility] BREAST COMPOSITION: There are scattered areas of [...] By: Merlin Massey M.D. Signed By: 10/23/24 155 DD/ 54 TD/TT: Fingernail Sculpturer: [facility] Lisa Hong MD - 10/23/2024 [place] [address] Mammography Report Signed Patient: TALIA RUTHERFORD MR#: [id number] : 1970 Acct:[id number] Age/Sex: 54 / F ADM Date: 10/23/24 Loc: MAMMO Attending Dr: Pascale Arana NP Ordering Physician: Pascale Arana NP Results: Date of Service: 10/23/24 Follow Up: Procedure(s): MM tomosynthesis screening BI Accession Number(s): [id number] cc: Pascale Arana NP Patient Name: TALIA RUTHERFORD MR#: [id number] : 1970 Exam Date: 10/23/2024 Ordering Doctor: [...] breast cancer at age 51. LOCATION: [facility] BREAST COMPOSITION: There are scattered areas of [...] Signed By: 10/23/24 1555 DD/ 54 TD/TT: Fingernail Sculpturer: [facility] Radiology Study observation (narrative) [facility] MM TOMOSYNTHESIS SCREENING B IOrdered By: Radiologist Radiology on 10-23-2024 [facility] Work Phone: ALL CBC WITH AUTO DIFFon BASOPHILS ABSOLUTE AUTO 0 [facility] Basophils/100 WBC (Bld) 0.8 % 0.2 - 2.0 % [facility] Eosinophils/100 WBC (Bld) 3.9 % 0.9 - 7.0 % [facility] Erythrocyte distribution width (RBC) [Ratio] 14.2 % 11.0 - 15.0 % [facility] Hematocrit (Bld) [Volume fraction] 32.9 % Low 36.0 - 48.0 % [facility] Hemoglobin (Bld) [Mass/Vol] 10.6 g/dL Low 12.0 - 16.0 g/dL [facility] IMMATURE GRANULOCYTES ABS AUTO 0 [facility] Immature granulocytes/100 WBC (Bld) 0 % 0.0 - 0.5 % [facility] Interpretation and review of laboratory results Abnormal [facility] LYMPHOCYTES ABSOLUTE AUTO 1.6 [facility] Lymphocytes/100 WBC (Bld) 31.7 % 20.5 - 60.0 % [facility] MCH (RBC) [Entitic mass] 29.5 pg 26.7 - 34.0 pg [facility] MCHC (RBC) [Mass/Vol] 32.2 g/dL 29.9 - 35.2 g/dL [facility] MCV (RBC) [Entitic vol] 91.6 fL 81.0 - 99.0 fL [facility] MONOCYTES ABSOLUTE AUTO 0.4 [facility] Monocytes/100 WBC (Bld) 7.2 % 1.7 - 12.0 % [facility] NEUTROPHILS ABSOLUTE AUTO 2.8 [facility] Neutrophils/100 WBC (Bld) 56.4 % 43.0 - 75.0 % [facility] Platelet mean volume (Bld) [Entitic vol] 10.5 fL 9.5 - 13.5 fL [facility] EO # 0.2 [facility] PLT 199 [facility] RBC 3.59 Low [facility] WBC 4.9 [facility] CT FOOT LT WO CONon 09-09-19 [address] [address] [address] Scan Report Signed Patient: TALIA RUTHERFORD MR#: [id number] : 1970 Acct:[id number] Age/Sex: 54 / F ADM Date: 09/09/24 Loc: CT Attending Dr: Tawana Foster D.P.M. Ordering Physician: Tawana Foster D.P.M. Date of Service: 09/09/24 Procedure(s): CT foot LT wo con Accession Number(s): [id number] cc: ANGEL LUIS GROVES The [place] [id number] Patient Name: TALIA RUTHERFORD MRN: [facility]:[id number] date: 1970 Sex: F Assigned Patient Location: CT Current Patient Location: CT Accession/Order Number: [id number] Exam Date: 09/09/2024 15:56 Report Date: 09/09/2024 [...] Signed By: 09/09/24 1742 DD/ 1739 TD/TT: Fingernail Sculpturer: [facility] Radiology, Radiologi MD blanche - 09/09/[address] [address] [address] Scan Report Signed Patient: TALIA RUTHERFORD MR#: [id number] : 1970 Acct:[id number] Age/Sex: 54 / F ADM Date: 09/09/24 Loc: CT Attending Dr: Tawana Foster D.P.M. Ordering Physician: Tawana Foster D.P.M. Date of Service: 09/09/24 Procedure(s): CT foot LT wo con Accession Number(s): [id number] cc: ANGEL LUIS GROVES [address] [address] Patient Name: TALIA RUTHERFORD MRN: [id number] date: 1970 Sex: F Assigned Patient Location: CT Current Patient Location: CT Accession/Order Number: [id number] Exam Date: 09/09/2024 15:56 Report Date: 09/09/2024 [...] Signed By: 09/09/24 174 DD/ 173 TD/TT: Fingernail Sculpturer: [facility] Radiology Study observation (narrative) [facility] CT FOOT LT WO CONOrdered By: Radiologist Radiology on 09-09-2024 [facility] Work Phone: XR FOOT LT MIN 3Von 09-05-19 [place] [address] XRay Report Signed Patient: TALIA RUTHERFORD MR#: [id number] : 1970 Acct:[id number] Age/Sex: 54 / F ADM Date: 09/04/24 Loc: EC Attending Dr: Tawana Foster D.P.M. Ordering Physician: Tawana Foster D.P.M. Date of Service: 09/04/24 Procedure(s): XR foot LT min 3V Accession Number(s): [id number] cc: ANGEL LUIS GROVES; Tawana Foster D.P.M. The [address] [address] Patient Name: TALIA RUTHERFORD MRN: [facility]:[id number] date: 1970 Sex: F Assigned Patient Location: Current Patient Location: Accession/Order Number: [id number] Exam Date: 09/04/2024 15:53 Report Date: 09/05/2024 [...] Signed By: 09/05/24 1019 DD/ 1016 TD/TT: Fingernail Sculpturer: [facility] Radiology, Radiologi MD blanche - 09/05/2024 The [place] [id number] XRay Report Signed Patient: TALIA RUTHERFORD MR#: [id number] : 1970 Acct:[id number] Age/Sex: 54 / F ADM Date: 09/04/24 Loc: EC Attending Dr: Tawana Foster D.P.M. Ordering Physician: Tawana Foster D.P.M. Date of Service: 09/04/24 Procedure(s): XR foot LT min 3V Accession Number(s): [id number] cc: ANGEL LUIS GROVES; Tawana Foster D.P.M. 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 agalactiae Org specific cx Ql (Vag fld) 0 [facility] S. agalactiae Org specific cx Ql (Vag fld) Not detected [facility] SERRATIA MARCESCENS (CHRONIC WOUND/ULCER) 0 [facility] SERRATIA MARCESCENS (CHRONIC WOUND/ULCER) [facility] STAPHYLOCOCCUS AUREUS (CHRONIC WOUND/ULCER) 0 [facility] STAPHYLOCOCCUS AUREUS (CHRONIC WOUND/ULCER) Not [facility] STAPHYLOCOCCUS EPIDERMIDIS, HAEMOLYTICUS, LUGDUNENSIS, SAPROPHYTICUS (CHRON 23.533 Abnormal [facility] STAPHYLOCOCCUS EPIDERMIDIS, HAEMOLYTICUS, LUGDUNENSIS, SAPROPHYTICUS (CHRON Detected Abnormal [facility] STREPTOCOCCUS PYOGENES (GROUP A STREP) (CHRONIC WOUND/ULCER) 0 [facility] STREPTOCOCCUS PYOGENES (GROUP A STREP) (CHRONIC WOUND/ULCER) Not [facility] VARICELLA ZOSTER VIRUS (HUMAN HERPESVIRUS 3) (CHRONIC WOUND/ULCER) 0 [facility] VARICELLA ZOSTER VIRUS (HUMAN HERPESVIRUS 3) (CHRONIC WOUND/ULCER) Not detected [facility] VIBRIO CHOLERAE, PARAHAEMOLYTICUS, VULNIFICUS (CHRONIC WOUND/ULCER) 0 [facility] VIBRIO CHOLERAE, PARAHAEMOLYTICUS, VULNIFICUS (CHRONIC WOUND/ULCER) Not detected [facility] ALL CBC WITH AUTO DIFFon BASOPHILS ABSOLUTE AUTO 0 [facility] Basophils/100 WBC (Bld) 0.6 % 0.2 - 2.0 % [facility] Eosinophils/100 WBC (Bld) 0 % Low 0.9 - 7.0 % [facility] Erythrocyte distribution width (RBC) [Ratio] 13.6 % 11.0 - 15.0 % [facility] Hematocrit (Bld) [Volume fraction] 37.4 % 36.0 - 48.0 % [facility] Hemoglobin (Bld) [Mass/Vol] 12.1 g/dL 12.0 - 16.0 g/dL [facility] IMMATURE GRANULOCYTES ABS AUTO 0.01 [facility] Immature granulocytes/100 WBC (Bld) 0.2 % 0.0 - 0.5 % [facility] Interpretation and review of laboratory results Abnormal [facility] LYMPHOCYTES ABSOLUTE AUTO 1.1 Low [facility] Lymphocytes/100 WBC (Bld) 19.9 % Low 20.5 - 60.0 % [facility] MCH (RBC) [Entitic mass] 29.4 pg 26.7 - 34.0 pg [facility] MCHC (RBC) [Mass/Vol] 32.4 g/dL 29.9 - 35.2 g/dL [facility] MCV (RBC) [Entitic vol] 91 fL 81.0 - 99.0 fL [facility] MONOCYTES ABSOLUTE AUTO 0.2 Low [facility] Monocytes/100 WBC (Bld) 4.2 % 1.7 - 12.0 % [facility] NEUTROPHILS ABSOLUTE AUTO 4.1 [facility] Neutrophils/100 WBC (Bld) 75.1 % High 43.0 - 75.0 % [facility] Platelet mean volume (Bld) [Entitic vol] 9.7 fL 9.5 - 13.5 fL [facility] EO # 0 [facility] PLT 256 [facility] TB RBC 4.11 Low [facility] TB WBC 5.4 [facility] CLINISYNC [facility] SS-A/Ro Sjogrens Antibodyon 04-18-2024 SS-A/Ro Sjogrens Antibody <0.2 Normal 0.0-0.9 [facility] Comment on above: Performed By: #### S SB, SSA #### [facility] , SS-B/La Sjogrens Antibodyon 04-18-2024 SS-B/La Sjogrens Antibody <0.2 Normal 0.0-0.9 [facility] Comment on above: Result Comment: Perf ormed at: CB - [facility] [address] [id number] Rehabilitation Worker: Hector Franco PhD, Phone: [phone] PERFORMED BY: [address] [address] PATHOLOGIST SASH MAKER LEAH SANFORD M.D. Performed By: #### S SB, SSA #### [facility] , Ambulatory Visit Summaryon 0 03-18-2024 Ambulatory Visit Summary Ambulatory Visit Summary TALIA RUTHERFORD Letitia :1970 Visit Date:03/18/2024 Ambulatory Visit Instructions Your [...] choosing us for your care. Normal [facility] Gastroenterology Office/Clin ic Noteon 03-18-2024 Gastroenterology Office/Clinic [...] vaccine, inactivated - Not Given Patient Refuses [facility] Comment on above: Result Comment: Elec tronically Signed By: Jelani WELLRE, Ron Valdovinos.br\Date and Time Signed: 03/18/24 15:21 EDT Outside Colonoscopyon 2023 Outside Colonoscopy [id number]#1.00TIFF [facility] Reminderson 07-20-2023 Reminders - From: Machelle Arauz LPN To: Liz - Clinical; Sent: 07/20/2023 10:55:11 EST Show up: 06/19/2033 07:00:00 EST Subject: colonoscopy recall Due Date/Time: 07/19/2033 07:00:00 EST Reminder/Recall Patient due for screening colonoscopy 07/19/2033. [facility] Lab Reportson 06-26-2023 Lab Reports [id number]#1.00TIFF [facility] Insurance Correspondenceon 08-09-2022 Insurance Correspondence [id number]#1.00TIFF [facility] Facesheeton 06-08-2023 Facesheet [id number]#1.00TIFF [facility] Physician Referralon 023 Physician Referral [id number]#1.00TIFF [facility] Ambulatory Visit Summaryon 08-07-2022 Ambulatory Visit Summary [...] you for choosing us for your care. [facility] Lab Reportson 05-31-2023 Lab Reports [id number]#1.00TIFF [facility] Consultation Noteon 05-25-20 Consultation Note [id number]#1.00TIFF Normal [facility] Physician Referralon 023 Physician Referral [id number]#1.00TIFF Normal [facility] Office Visiton 04-07-2023 Follow-up visit [id number] Norma Rutherford mireya D 1970 Date Provider Department Center 04/07/2023 25656-SMBOLVIZNCAROL SHAH IAN [place] Family History Problem Relation Age of Onset Brain Aneurysm Mother 80 Diabetes Mother Heart failure Father 80 Diabetes Father Hypertension Father Diabetes Sister Family Status - Relation Status Age at Mother Father Sister Level of Service:88666 SD OFFICE/OUTPATIENT ESTABLISHED MOD MDM 30-39 MIN Normal [facility] 36on 02-08-2023 36 [facility] lab called to re port critical HGB and hematocrit for patient: HGB was 5.1 and hematocrit is 18.9. I spoke with Talia and advised she go to the ED. She verbalized understanding and will do so. Normal [facility] Office Visiton 02-08-2023 Follow-up visit [id number] Norma Rutherford mireya Dong 1970 F Date Provider Department Center 02/08/2023 96138-LPMFFBEWKCAROL SHAH IAN [place] Family History Problem Relation Age of Onset Brain Aneurysm Mother 80 Diabetes Mother Heart failure Father 80 Diabetes Father Hypertension Father Diabetes Sister Family Status - Relation Status Age at Mother Father Sister Level of Service:80827 SD OFFICE/OUTPATIENT NEW MODERATE MDM 45-59 MINUTES Reason for Visit and Comments: Establish Care [42] - Swelling in both legs,right leg is itching and painful Shortness of Breath [239103] Dizziness [481926] Fatigue [46] Normal [facility] PREG HCG QUALon 03-10-2022 , QUAL Negative Normal NEGATIVE [facility] Comment on above: Performed By: #### P REG ####[facility] [address] [place] [address]DrConsuelo Johnson Covid-19 PCR (CVDTBH)on 02-21 SARS-CoV-2 (COVID-19) RNA EMMANUEL+probe Ql (Unsp spec) Not detected Normal NOT DETECTED [facility] Comment on above: Result Comment: This test is not yet approved or cleared by the [place] FDA. When there are no FDA-approved or cleared tests available, and other criteria are met, FDA can make tests available under an emergency access mechanism called an Emergency Use Authorization (EUA). The EUA for this test is supported by the Sales Operations of Health and Human Service's (HHS's) declaration [...] SARS-CoV-2. Performed By: #### C VDTB #### [facility] [address] [place] [address] [address] Moni Johnson PROF CHEM 8 (BAS METB)on Anion gap [Moles/Vol] 9.0 mmol/L Normal [facility] Comment on above: Performed By: #### B MP ####[facility] [address] [place] [address]DrConsuelo Johnson Calcium [Mass/Vol] 8.3 mg/dL Critically low 8.5-10.1 Th [facility] Comment on above: Performed By: #### B MP ####[facility] [address] [place] [address]DrConsuelo Johnson Chloride [Moles/Vol] 106 mmol/L Normal 98-107 [facility] Comment on above: Performed By: #### B MP ####[facility] [address] [place] [address]DrConsuelo Johnson CO2 [Moles/Vol] 29.2 mmol/L Normal 21.0-32.0 [facility] Comment on above: Performed By: #### B MP ####[facility] [address] [place] [address]Dr. Moni Johnson Creatinine [Mass/Vol] 0.78 mg/dL Normal 0.55-1.02 [facility] Comment on above: Performed By: #### B MP ####[facility] [address] [place] [address]Dr. Angelinemaria a Alex EGFR-AF KENYAN >60 Normal >=60 [facility] Comment on above: Performed By: #### B MP ####[facility] [address] [place] [address]Dr. Moni Johnson EGFR-NON AF KENYAN >60 Normal >=60 [facility] Comment on above: Performed By: #### B MP ####[facility] [address] [place] [address]Dr. Moni Johnosn Glucose [Mass/Vol] 88 mg/dL Normal 74-106 [facility] Comment on above: Performed By: #### B MP ####[facility] [address] [place], [place] [address]Dr. Moni Johnson Potassium [Moles/Vol] 4.2 mmol/L Normal 3.5-5.1 [facility] Comment on above: Performed By: #### B MP ####[facility] [address] [place], [place] [address]Dr. Moni Johnson Sodium [Moles/Vol] 140 mmol/L Normal 136-145 [facility] Comment on above: Performed By: #### B MP ####[facility] [address] [place], [place] [address]Dr. Moni Johnson Urea nitrogen [Mass/Vol] 21.0 mg/dL Critically high 7.0-18.0 [facility] Comment on above: Performed By: #### B MP ####[facility] [address] [place], [place] [address]Dr. Moni Johnson Urea nitrogen/Creatinine [Mass ratio] 26.9 mg/mg Normal [facility] Comment on above: Performed By: #### B MP ####[facility] [address] [place] [address] Mon[address] CT FOOT LT WO CONon 08-02-[address] FOOT LT WO CON EXAMINATION: [...] ELLIOT JOSE Date: 2022-02-22 18:32 Normal [facility] COVID Quick Testingon 2021 Result Negative [facility] Other Quick Fluon 08-30-2021 FLUAV Ab CF (S) [Titer] Negative [facility] Other FLUBV Ab CF (S) [Titer] Negative [facility] 05-24 SARS-CoV-2 (COVID-19) RNA EMMANUEL+probe Ql (Unsp spec) Not detected Normal NOT DETECTED [facility] Comment on above: Result Comment: This test is not yet approved or cleared by the [place] FDA. When there are no FDA-approved or cleared tests available, and other criteria are met, FDA can make tests available under an emergency access mechanism called an Emergency Use Authorization (EUA). The EUA for this test is supported by the Sales Operations of Health and Human Service's (HHS's) declaration [...] consistent with SARS-CoV-2. Performed By: #### [facility] #### [facility] [address] [place] [address] Dr. Moni Johnson Vital Signs Date Time Vital Sign Value Performing Clinician Facility 02-25-2025 11:31-0400 Body mass index (BMI) [Ratio] 28.76 kg/m2 Pascale Arana NET APPLICATION ARCHITECT Work Phone: [facility] 02-25-2025 11:31-0400 Body temperature 97.81 [degF] Pascale Herreraz [employer] ARCH[employer]ECT Work Phone: [facility] 02-25-2025 11:31-0400 Body weight 78.38 kg Pascale Herreraz [employer] AP[employer] ARCHITECT Work Phone: [facility] 02-25-2025 11:31-0400 Diastolic blood pressure 64 mm[Hg] Pascale Herreraz [employer] ARCHITECT Work Phone: [facility] 02-25-2025 11:31-0400 Heart rate 99 /min Pascale Herreraz [employer] AP[employer] ARCHITECT Work Phone: [facility] 02-25-2025 11:31-0400 SaO2% (BldA) [Mass fraction] 97 % Pascale Herreraz [employer] ARCHITECT Work Phone: [facility] 02-25-2025 11:31-0400 Systolic blood pressure 102 mm[Hg] Pascale Herreraz [employer] APPLICATION ARCHITECT Work Phone: [facility] 02-24-2025 15:01-0400 Body mass index (BMI) [Ratio] 28.79 kg/m2 Eunice TDI Bassline HNP-BC Work Phone: [facility] 02-24-2025 15:01-0400 Body weight 78.47 kg [email or web address] HNP-BC Work Phone: [facility] 02-24-2025 15:01-0400 Diastolic blood pressure 62 mm[Hg] Eunice Dias PMHNP-BC Work Phone: [facility] 02-24-2025 15:01-0400 Heart rate 88 /min Eunice Dias PMHNP-BC Work Phone: [facility] 02-24-2025 15:01-0400 Systolic blood pressure 102 mm[Hg] Eunice Dias PMHNP-BC Work Phone: [facility] 02-06-2025 14:23-0400 Body height 166.4 cm Shelia Muniz DO Work Phone: [facility] 02-06-2025 14:23-0400 Body mass index (BMI) [Ratio] 28.51 kg/m2 Shelia Muniz DO Work Phone: [facility] 02-06-2025 14:23-0400 Body weight 78.93 kg Shelia Muniz DO Work Phone: [facility] 02-06-2025 14:23-0400 Diastolic blood pressure 80 mm[Hg] Shelia Muniz DO Work Phone: [facility] 02-06-2025 14:23-0400 Systolic blood pressure 108 mm[Hg] Shelia Muniz DO Work Phone: [facility] 01-22-2025 09:04-0400 Body mass index (BMI) [Ratio] 29.62 kg/m2 Eunice Dias PMHNP-BC Work Phone: [facility] 01-22-2025 09:04-0400 Body weight 80.74 kg Eunice Dias PMHNP-BC Work Phone: [facility] 01-22-2025 09:04-0400 Diastolic blood pressure 68 mm[Hg] Eunice Dias PMHNP-BC Work Phone: [facility] 01-22-2025 09:04-0400 Heart rate 78 /min Eunice Dias PMHNP-BC Work Phone: [facility] 01-22-2025 09:04-0400 Systolic blood pressure 112 mm[Hg] Eunice Dias PMHNP-BC Work Phone: [facility] 01-06-2025 16:32-0400 Body mass index (BMI) [Ratio] 29.99 kg/m2 Pascale Derrickhholz [employer] APPLICATION ARCHITECT Work Phone: [facility] 01-06-2025 16:32-0400 Body temperature 98.01 [degF] Pascale Aichholz NET APPLICATION ARCHITECT Work Phone: [facility] 01-06-2025 16:32-0400 Body weight 81.74 kg Pascale Aichholz NET APPLICATION ARCHITECT Work Phone: [facility] 01-06-2025 16:32-0400 Diastolic blood pressure 60 mm[Hg] Pascale Aichholz NET APPLICATION ARCHITECT Work Phone: [facility] 01-06-2025 16:32-0400 Heart rate 82 /min Pascale Aichholz NET APPLICATION ARCHITECT Work Phone: [facility] 01-06-2025 16:32-0400 Respiratory rate 18 /min Pascale Aichholz NET APPLICATION ARCHITECT Work Phone: [facility] 01-06-2025 16:32-0400 SaO2% (BldA) [Mass fraction] 98 % Pascale Derrickhholz NET APPLICATION ARCHITECT Work Phone: [facility] 01-06-2025 16:32-0400 Systolic blood pressure 110 mm[Hg] Pascale Aichholz NET APPLICATION ARCHITECT Work Phone: [facility] 11-20-2024 15:30-0400 Body mass index (BMI) [Ratio] 32.48 kg/m2 Pascale Aichholz NET APPLICATION ARCHITECT Work Phone: [facility] 11-20-2024 15:30-0400 Body temperature 98.2 [degF] Pascale Aichholz NET APPLICATION ARCHITECT Work Phone: [facility] 11-20-2024 15:30-0400 Body weight 88.54 kg Pascale Aichholz NET APPLICATION ARCHITECT Work Phone: [facility] 11-20-2024 15:30-0400 Diastolic blood pressure 60 mm[Hg] Pascale Aichholz NET APPLICATION ARCHITECT Work Phone: [facility] 11-20-2024 15:30-0400 Heart rate 80 /min Pascale Aichholz NET APPLICATION ARCHITECT Work Phone: [facility] 11-20-2024 15:30-0400 Respiratory rate 18 /min Pascale Aichholz NET APPLICATION ARCHITECT Work Phone: [facility] 11-20-2024 15:30-0400 SaO2% (BldA) [Mass fraction] 95 % Pascale Aichholz NET APPLICATION ARCHITECT Work Phone: [facility] 11-20-2024 15:30-0400 Systolic blood pressure 104 mm[Hg] Pascale Aichholz NET APPLICATION ARCHITECT Work Phone: [facility] 10-23-2024 17:34-0400 Body mass index (BMI) [Ratio] 32.58 kg/m2 Pascale Aichholz NET APPLICATION ARCHITECT Work Phone: [facility] 10-23-2024 17:34-0400 Body temperature 98.8 [degF] Pascale Aichholz NET APPLICATION ARCHITECT Work Phone: [facility] 10-23-2024 17:34-0400 Body weight 88.81 kg Pascale Aichholz NET APPLICATION ARCHITECT Work Phone: [facility] 10-23-2024 17:34-0400 Diastolic blood pressure 85 mm[Hg] Pascale Aichholz NET APPLICATION ARCHITECT Work Phone: [facility] 10-23-2024 17:34-0400 Heart rate 92 /min Pascale Aichholz NET APPLICATION ARCHITECT Work Phone: [facility] 10-23-2024 17:34-0400 Respiratory rate 18 /min Pascale Aichholz NET APPLICATION ARCHITECT Work Phone: [facility] 10-23-2024 17:34-0400 SaO2% (BldA) [Mass fraction] 97 % Pascale Arana NET APPLICATION ARCHITECT Work Phone: [facility] 10-23-2024 17:34-0400 Systolic blood pressure 98 mm[Hg] Pascale Arana NET APPLICATION ARCHITECT Work Phone: [facility] 10-02-2024 16:51-0400 Body height 165.1 cm Pascaleeric Herreraz NET APPLICATION ARCHITECT Work Phone: [facility] 10-02-2024 16:51-0400 Body mass index (BMI) [Ratio] 33.51 kg/m2 Pascaleeric Herreraz NET APPLICATION ARCHITECT Work Phone: [facility] 10-02-2024 16:51-0400 Body temperature 97.81 [degF] Pascale Herreraz NET APPLICATION ARCHITECT Work Phone: [facility] 10-02-2024 16:51-0400 Body weight 91.35 kg Pascale Arana NET APPLICATION ARCHITECT Work Phone: [facility] 10-02-2024 16:51-0400 Heart rate 68 /min Pascaleeric Herreraz NET APPLICATION ARCHITECT Work Phone: [facility] 10-02-2024 16:51-0400 Respiratory rate 18 /min Pascale Arana NET APPLICATION ARCHITECT Work Phone: [facility] 10-02-2024 16:51-0400 SaO2% (BldA) [Mass fraction] 97 % Pascale Herreraz NET APPLICATION ARCHITECT Work Phone: [facility] 09-04-2024 16:10-0500 Body height 165.1 cm Angel Luis Groves NET APPLICATION ARCHITECT Work Phone: [facility] 09-04-2024 16:10-0500 Body mass index (BMI) [Ratio] 33.28 kg/m2 Angel Luis Groves NET APPLICATION ARCHITECT Work Phone: [facility] 09-04-2024 16:10-0500 Body temperature 97.2 [degF] Angel Luis Groves NET APPLICATION ARCHITECT Work Phone: [facility] 09-04-2024 16:10-0500 Body weight 90.72 kg Angel Luis Groves NET APPLICATION ARCHITECT Work Phone: [facility] 09-04-2024 16:10-0500 Diastolic blood pressure 60 mm[Hg] Angel Luis Groves NET APPLICATION ARCHITECT Work Phone: [facility] 09-04-2024 16:10-0500 Heart rate 79 /min Angel Luis Groves NET APPLICATION ARCHITECT Work Phone: [facility] 09-04-2024 16:10-0500 Respiratory rate 16 /min Angel Luis Groves NET APPLICATION ARCHITECT Work Phone: [facility] 09-04-2024 16:10-0500 SaO2% (BldA) [Mass fraction] 98 % Angel Luis Groves NET APPLICATION ARCHITECT Work Phone: [facility] 09-04-2024 16:10-0500 Systolic blood pressure 100 mm[Hg] Angel Luis Groves NET APPLICATION ARCHITECT Work Phone: [facility] 08-12-2024 16:04-0500 Body mass index (BMI) [Ratio] 33.32 kg/m2 Pascale Mezapiperholz NET APPLICATION ARCHITECT Work Phone: [facility] 08-12-2024 16:04-0500 Body temperature 98.1 [degF] Pascale Shalaholz NET APPLICATION ARCHITECT Work Phone: [facility] 08-12-2024 16:04-0500 Body weight 90.81 kg Pascale Aichholz NET APPLICATION ARCHITECT Work Phone: [facility] 08-12-2024 16:04-0500 Diastolic blood pressure 62 mm[Hg] Pascale Aichholz NET APPLICATION ARCHITECT Work Phone: [facility] 08-12-2024 16:04-0500 Heart rate 80 /min Pascale Derrickhholz NET APPLICATION ARCHITECT Work Phone: [facility] 08-12-2024 16:04-0500 Respiratory rate 20 /min Pascale Arana NET APPLICATION ARCHITECT Work Phone: [facility] 08-12-2024 16:04-0500 SaO2% (BldA) [Mass fraction] 97 % Pascale Arana NET APPLICATION ARCHITECT Work Phone: [facility] 08-12-2024 16:04-0500 Systolic blood pressure 90 mm[Hg] Pascale Arana NET APPLICATION ARCHITECT Work Phone: [facility] 07-31-2024 14:59-0500 Body height 165.1 cm Angel Luis Groves NET APPLICATION ARCHITECT Work Phone: [facility] 07-31-2024 14:59-0500 Body mass index (BMI) [Ratio] 34.28 kg/m2 Angel Luis Groves NET APPLICATION ARCHITECT Work Phone: [facility] 07-31-2024 14:59-0500 Body temperature 96.21 [degF] Angel Luis Groves NET APPLICATION ARCHITECT Work Phone: [facility] 07-31-2024 14:59-0500 Body weight 93.44 kg Angel Luis Groves NET APPLICATION ARCHITECT Work Phone: [facility] 07-31-2024 14:59-0500 Diastolic blood pressure 62 mm[Hg] Angel Luis Groves NET APPLICATION ARCHITECT Work Phone: [facility] 07-31-2024 14:59-0500 Heart rate 83 /min Angel Luis Groves NET APPLICATION ARCHITECT Work Phone: [facility] 07-31-2024 14:59-0500 Respiratory rate 22 /min Angel Luis Groves NET APPLICATION ARCHITECT Work Phone: [facility] 07-31-2024 14:59-0500 SaO2% (BldA) [Mass fraction] 98 % Angel Luis Groves NET APPLICATION ARCHITECT Work Phone: [facility] 07-31-2024 14:59-0500 Systolic blood pressure 100 mm[Hg] Angel Luis Groves NET APPLICATION ARCHITECT Work Phone: [facility] 04-10-2024 15:56-0400 Body height 165.1 cm Angel Luis Groves NET APPLICATION ARCHITECT Work Phone: [facility] 04-10-2024 15:56-0400 Body mass index (BMI) [Ratio] 33.61 kg/m2 Angel Luis Groves NET APPLICATION ARCHITECT Work Phone: [facility] 04-10-2024 15:56-0400 Body temperature 98.29 [degF] Angel Luis Groves NET APPLICATION ARCHITECT Work Phone: [facility] 04-10-2024 15:56-0400 Body weight 91.63 kg Angel Luis Groves NET APPLICATION ARCHITECT Work Phone: [facility] 04-10-2024 15:56-0400 Diastolic blood pressure 68 mm[Hg] Angel Luis Groves NET APPLICATION ARCHITECT Work Phone: [facility] 04-10-2024 15:56-0400 Heart rate 67 /min Angel Luis Groves NET APPLICATION ARCHITECT Work Phone: [facility] Comment on above: 98% O2 04-10-2024 15:56-0400 Systolic blood pressure 100 mm[Hg] Angel Luis Groves NET APPLICATION ARCHITECT Work Phone: [facility] 03-18-2024 15:06-0400 Blood Pressure Location Ron Palomares [facility] 03-18-2024 15:06-0400 Diastolic blood pressure 69 mm[Hg] Ron Palomares [facility] 03-18-2024 15:06-0400 Heart rate 85 /min Ron Palomares [facility] 03-18-2024 15:06-0400 Respiratory rate 16 /min Ron Palomares [facility] 03-18-2024 15:06-0400 Systolic blood pressure 107 mm[Hg] Ron Palomares [facility] 03-12-2024 15:46-0400 Body height 165.1 cm Angel Luis Groves NET APPLICATION ARCHITECT Work Phone: [facility] 03-12-2024 15:46-0400 Body mass index (BMI) [Ratio] 33.28 kg/m2 Angel Luis Groves NET APPLICATION ARCHITECT Work Phone: [facility] 03-12-2024 15:46-0400 Body temperature 98.01 [degF] Angel Luis Groves NET APPLICATION ARCHITECT Work Phone: [facility] 03-12-2024 15:46-0400 Body weight 90.72 kg Angel Luis Groves NET APPLICATION ARCHITECT Work Phone: [facility] 03-12-2024 15:46-0400 Diastolic blood pressure 70 mm[Hg] Angel Luis Groves NET APPLICATION ARCHITECT Work Phone: [facility] 03-12-2024 15:46-0400 Heart rate 71 /min Angel Luis Groves NET APPLICATION ARCHITECT Work Phone: [facility] Comment on above: 99% O2 03-12-2024 15:46-0400 Systolic blood pressure 100 mm[Hg] Angel Luis Groves NET APPLICATION ARCHITECT Work Phone: [facility] 06-07-2023 16:03-0500 Blood Pressure Location Segun [facility]LLOW[facility] 06-07-2023 16:03-0500 Diastolic blood pressure 88 mm[Hg] Seg[facility] 06-07-2023 16:03-0500 Heart rate 72 /min Segun [facility] 06-07-2023 16:03-0500 Respiratory rate 16 /min Segun [facility] 06-07-2023 16:03-0500 Systolic blood pressure 130 mm[Hg] Segun [facility] 08-30-2021 13:00-0500 Body height 165.1 cm Kristin Ginty Other [facility] Other 08-30-2021 13:00-0500 Body mass index (BMI) [Ratio] 30.95 kg/m2 Kristin Ginty Other [facility] Other 08-30-2021 13:00-0500 Body temperature 98 [degF] Kristin Ginty Other [facility] Other 08-30-2021 13:00-0500 Body weight 84.37 kg Kristin Ginty Other [facility] Other 08-30-2021 13:00-0500 Respiratory rate 16 /min Kristin Ginty Other [facility] Other 08-30-2021 13:00-0500 SaO2% (BldA) [Mass fraction] 98 % Kristin Ginty Other [facility] Other Encounters Encounter Date Encounter Type Care Provider Facility Start: 03-10-2025 End: 03-10-2025 ambulatory Flores Eden MD Facility:[facility] Start: 03-06-2025 End: 03-06-2025 ambulatory ROHAN WATERS Not Available Start: 03-06-2025 End: 03-06-2025 Bamboo flowsheet Rohan Waters [facility] Start: 03-06-2025 End: 03-06-2025 Bamboo flowsheet Rohan Waters [facility] Start: 03-05-2025 End: 03-05-2025 Clinisync Result Encounter Pascale Arana NET APPLICATION ARCHITECT Work Phone: [facility] External Department Unsolicited Start: 03-05-2025 End: 03-05-2025 Clinisync Result Encounter Pascale Arana NET APPLICATION ARCHITECT Work Phone: [facility] External Department Unsolicited Start: 02-26-2025 End: 02-27-2025 Clinisync Result Encounter Generic External Data Provider [facility] External Department Unsolicited Start: 02-26-2025 End: 02-27-2025 Clinisync Result Encounter Generic External Data Provider [facility] External Department Unsolicited Start: 02-26-2025 End: 02-26-2025 Refill Pascale Arana NET APPLICATION ARCHITECT Work Phone: [facility] Comment on above: Gastroesophageal ref lux disease, unspecified whether esophagitis present (Primary Dx) Start: 02-25-2025 End: 02-25-2025 Office outpatient visit 25 minutes Pascale Lastdes NET APPLICATION ARCHITECT Work Phone: [facility] Comment on above: Severe episode of re [...] insomnia Start: 02-25-2025 End: 02-25-2025 ambulatory PASCALE LASTJARRETTAlex Not Available Start: 02-24-2025 End: 02-24-2025 ambulatory EUNICE DIAS Not Available Start: 02-24-2025 End: 02-24-2025 Office outpatient visit 15 minutes Eunice Dias PMHNP- Work Phone: [facility] Comment on above: JESSIKA (generalized anx iety disorder) ; Severe episode of recurrent major depressive disorder, without psychotic features (HCC); PTSD (post-traumatic stress disorder) ; Insomnia, unspecified type; Sleep apnea, unspecified type Start: 02-24-2025 End: 02-24-2025 Bamboo flowsheet Eunice Dias PMHNP-BC Work Phone: [facility] Start: 02-24-2025 End: 02-24-2025 Bamboo flowsheet Eunice Dias PMHNP-BC Work Phone: [facility] Start: 02-24-2025 End: 02-24-2025 Chart abstracting Tania Asif MD Work Phone: [facility] Start: 02-20-2025 End: 02-20-2025 Refill Pascaleeric Arana NET APPLICATION ARCHITECT Work Phone: [facility] Comment on above: Psychophysiological insomnia Start: 02-19-2025 End: 02-19-2025 Clinisync Result Encounter Generic External Data Provider [facility] External Department Unsolicited Start: 02-19-2025 End: 02-19-2025 Clinisync Result Encounter Generic External Data Provider [facility] External Department Unsolicited Start: 02-11-2025 End: 02-12-2025 Refill Pascale Sumit NET APPLICATION ARCHITECT Work Phone: [facility] Comment on above: UTI (urinary tract i nfection), uncomplicated; Class 1 obesity due to excess calories without serious comorbidity in adult, unspecified BMI; BMI 32.0-32.9,adult Start: 02-06-2025 End: 02-06-2025 Office outpatient new 30 minutes Shelia Muniz DO Work Phone: [facility] Comment on above: Cystocele with secon d degree uterine prolapse (Primary Dx); History of reconstructive repair of rectocele; Urge urinary incontinence; Incomplete emptying of bladder; Atrophic vaginitis Start: 02-06-2025 End: 02-06-2025 Refill Pascale Sumit NET APPLICATION ARCHITECT Work Phone: [facility] Comment on [...] 01-22-2025 End: 01-22-2025 Bamboo flowsheet Eunice Dias [facility] Work Phone: [facility] Start: 01-22-2025 End: 01-22-2025 Bamboo flowsheet Eunice Dias [facility] Work Phone: [facility] Start: 01-22-2025 End: 01-22-2025 ambulatory EUNICE DIAS Not Available Start: 01-20-2025 End: 01-20-2025 ambulatory Flores Eden MD Facility:[facility] Start: 01-14-2025 End: 01-14-2025 Clinisync Result Encounter Pascale Arana NET APPLICATION ARCHITECT Work Phone: [facility] External Department Unsolicited Start: 01-14-2025 End: 01-14-2025 Clinisync Result Encounter Pascale Arana NET APPLICATION ARCHITECT Work Phone: [facility] External Department Unsolicited Start: 01-14-2025 End: 01-14-2025 Refill Pascale Arnaa NET APPLICATION ARCHITECT Work Phone: [facility] Comment on above: URTI (acute upper re spiratory infection); Non-recurrent acute suppurative otitis media of both ears without spontaneous rupture of tympanic membranes Start: 01-07-2025 End: 01-07-2025 Orders Only Pascale Arana NET APPLICATION ARCHITECT Work Phone: [facility] Comment on above: B12 deficiency (Prim radha Dx); Iron deficiency anemia secondary to inadequate dietary iron intake Start: 01-06-2025 End: 01-06-2025 Office outpatient visit 25 minutes Pascale Arana NET APPLICATION ARCHITECT Work Phone: [facility] Comment on above: Bipolar disorder wit [...] 01-06-2025 End: 01-06-2025 Bamboo flowsheet Pascale Arana NET APPLICATION ARCHITECT Work Phone: [facility] Start: 01-06-2025 End: 01-06-2025 Bamboo flowsheet Pascale Arana NET APPLICATION ARCHITECT Work Phone: [facility] Start: 01-06-2025 End: 01-06-2025 Telephone encounter Pascale Arana NET APPLICATION ARCHITECT Work Phone: [facility] Start: 12-18-2024 End: 12-20-2024 Refill Pascale Arana NET APPLICATION ARCHITECT Work Phone: [facility] Comment on above: URTI (acute upper re spiratory infection); Non-recurrent acute suppurative otitis media of both ears without spontaneous rupture of tympanic membranes Start: 11-20-2024 End: 11-20-2024 ambulatory PASCALE ARANA Not Available Start: 11-20-2024 End: 11-20-2024 Patient encounter procedure Pascale Arana NET APPLICATION ARCHITECT Work Phone: [facility] Start: 11-20-2024 End: 11-20-2024 Periodic preventive med est patient 40-64yrs Pascale Arana NET APPLICATION ARCHITECT Work Phone: [facility] Comment on above: Well woman exam [...] Start: 11-20-2024 End: 11-20-2024 Bamboo flowsheet Pascale Sumit NET APPLICATION ARCHITECT Work Phone: [facility] Start: 11-20-2024 End: 11-26-2024 Bamboo flowsheet Pascale Derrickpiperdes NET APPLICATION ARCHITECT Work Phone: [facility] Start: 11-20-2024 End: 11-26-2024 Clinisync Result Encounter Pascale Derrickpiperdes NET APPLICATION ARCHITECT Work Phone: [facility] External Department Unsolicited Start: 11-18-2024 End: 11-20-2024 Refill Pascale Sumit [place] Work Phone: [facility] Comment on above: Overactive bladder d ue to prolapse of female genital organ Gastroesophageal ref lux disease, unspecified whether esophagitis present Psychophysiological insomnia Fibromyalgia Environmental and se asonal allergies URTI (acute upper re spiratory infection); Non-recurrent acute suppurative otitis media of both ears without spontaneous rupture of tympanic membranes Bipolar disorder wit h severe depression (CMS/[facility]) Start: 10-23-2024 End: 10-23-2024 Office outpatient visit 15 minutes Pascale Arana NP Work Phone: [facility] Comment on above: Iron deficiency anem ia secondary to inadequate dietary iron intake (Primary Dx); Class 1 obesity due to excess calories without serious comorbidity in adult, unspecified BMI; Cigarette nicotine dependence without complication; B12 deficiency; BMI 32.0-32.9,adult Start: 10-23-2024 End: 10-23-2024 Clinisync Result Encounter Pascale Sumit [place] Work Phone: [facility] External Department Unsolicited Start: 10-23-2024 End: 10-23-2024 Clinisync Result Encounter Pascale Sumit NET APPLICATION ARCHITECT Work Phone: [facility] External Department Unsolicited Start: 10-23-2024 End: 01-15-2025 Patient encounter procedure Molina De Anda MD Work Phone: [facility] Start: 10-23-2024 End: 10-23-2024 Refill Molina De Anda MD Work Phone: [facility] Comment on above: URTI (acute upper re spiratory infection); Non-recurrent acute suppurative otitis media of both ears without spontaneous rupture of tympanic membranes Start: 10-03-2024 End: 10-03-2024 Clinisync Result Encounter Pascale Arana NP Work Phone: [facility] External Department Unsolicited Start: 10-03-2024 End: 10-03-2024 Clinisync Result Encounter Pascale Arana NET APPLICATION ARCHITECT Work Phone: [facility] External Department Unsolicited Start: 10-02-2024 End: 10-02-2024 Office outpatient visit 25 minutes Pascale Arana NP Work Phone: [facility] [...] 10-02-2024 End: 10-02-2024 Bamboo flowsheet Pascale Arana NET APPLICATION ARCHITECT Work Phone: [facility] Start: 10-02-2024 End: 10-02-2024 Bamboo flowsheet Pascale Arana NET APPLICATION ARCHITECT Work Phone: [facility] Start: 09-09-2024 End: 09-09-2024 Clinisync Result Encounter Generic External Data Provider [facility] External Department Unsolicited Start: 09-09-2024 End: 09-09-2024 Clinisync Result Encounter Generic External Data Provider [facility] External Department Unsolicited Start: 09-06-2024 End: 09-09-2024 Refill Pascale Arana NET APPLICATION ARCHITECT Work Phone: [facility] Comment on above: Environmental and se asonal allergies Start: 09-05-2024 End: 09-05-2024 Clinisync Result Encounter Generic External Data Provider [facility] External Department Unsolicited Start: 09-05-2024 End: 09-05-2024 Clinisync Result Encounter Generic External Data Provider [facility] External Department Unsolicited Start: 09-04-2024 End: 09-04-2024 Office outpatient visit 10 minutes Angel Luis Blackburnk NET APPLICATION ARCHITECT Work Phone: [facility] Comment on above: BMI 33.0-33.9,adult (Primary Dx); Bipolar disorder with severe depression ([facility]); Fibromyalgia; Gastro-esophageal reflux disease without esophagitis; Esophageal reflux; BMI 34.0-34.9,adult; Psychophysiological insomnia; Overactive bladder due to prolapse of female genital organ Start: 09-04-2024 End: 09-04-2024 ambulatory ANGEL LUIS GROVES Not Available Start: 09-04-2024 End: 09-04-2024 Bamboo flowsheet Angel Luis Groves NET APPLICATION ARCHITECT Work Phone: [facility] Start: 09-04-2024 End: 09-04-2024 Bamboo flowsheet Angel Luis Groves NET APPLICATION ARCHITECT Work Phone: [facility] Start: 08-28-2024 End: 08-28-2024 Refill Angel Luis Groves NET APPLICATION ARCHITECT Work Phone: [facility] Comment on above: Fibromyalgia Start: 08-14-2024 End: 08-14-2024 Refill Angel Luis Groves NET APPLICATION ARCHITECT Work Phone: [facility] Comment on above: Fibromyalgia Start: 08-12-2024 End: 08-12-2024 Office outpatient visit 25 minutes Pascale Arana NET APPLICATION ARCHITECT Work Phone: [facility] Comment on above: Acute non-recurrent maxillary sinusitis (Primary Dx); Cigarette nicotine dependence without complication; Class 1 obesity due to excess calories without serious comorbidity in adult, unspecified BMI; Environmental and seasonal allergies; Cutaneous abscess of abdominal wall Start: 08-12-2024 End: 08-12-2024 ambulatory PASCALE RAANA Not Available Start: 08-12-2024 End: 08-12-2024 Bamboo flowsheet Pascale Sumit NET APPLICATION ARCHITECT Work Phone: [facility] Start: 08-12-2024 End: 08-14-2024 Bamboo flowsheet Pascale Sumit NET APPLICATION ARCHITECT Work Phone: [facility] Start: 08-12-2024 End: 08-14-2024 External Result Encounter Pascale Sumit NET APPLICATION ARCHITECT Work Phone: [facility] External Department Unsolicited Start: 08-05-2024 End: 08-06-2024 Orders Only Angel Luis Groves NET APPLICATION ARCHITECT Work Phone: [facility] Comment on above: B12 deficiency (Prim radha Dx); Iron deficiency anemia, unspecified iron deficiency anemia type Start: 08-01-2024 End: 08-01-2024 Clinisync Result Encounter Angel Luis Groves NET APPLICATION ARCHITECT Work Phone: [facility] External Department Unsolicited Start: 08-01-2024 End: 08-01-2024 Clinisync Result Encounter Angel Luis Groves NET APPLICATION ARCHITECT Work Phone: [facility] External Department Unsolicited Start: 07-31-2024 End: 07-31-2024 Office outpatient visit 15 minutes Angel Luis Groves NET APPLICATION ARCHITECT Work Phone: [facility] Comment on above: Iron deficiency anem ia secondary to inadequate dietary iron intake (Primary Dx); Fibromyalgia; Psychophysiological insomnia; BMI 34.0-34.9,adult Start: 07-31-2024 End: 07-31-2024 ambulatory ANGEL LUIS GROVES Not Available Start: 07-31-2024 End: 07-31-2024 Bamboo flowsheet Angel Luis Groves NET APPLICATION ARCHITECT Work Phone: [facility] Start: 07-31-2024 End: 07-31-2024 Bamboo flowsheet Angel Luis Groves NET APPLICATION ARCHITECT Work Phone: [facility] Start: 07-25-2024 End: 07-29-2024 Refill Angel Luis Groves NET APPLICATION ARCHITECT Work Phone: [facility] Comment on above: Psychophysiological insomnia Start: 06-25-2024 End: 06-25-2024 Refill Angel Luis Groves NET APPLICATION ARCHITECT Work Phone: [facility] Comment on above: Psychophysiological insomnia Start: 06-11-2024 End: 06-11-2024 Orders Only Angel Luis Groves NET APPLICATION ARCHITECT Work Phone: [facility] Comment on above: Fibromyalgia (Primar y Dx) Start: 06-03-2024 End: 06-03-2024 Refill Angel Luis Groves NET APPLICATION ARCHITECT Work Phone: [facility] Comment on above: Fibromyalgia Start: 05-27-2024 End: 05-27-2024 Orders Only Angel Luis Groves NET APPLICATION ARCHITECT Work Phone: [facility] Comment on above: Psychophysiological insomnia (Primary Dx) Start: 04-18-2024 End: 04-18-2024 Patient encounter procedure MD Tyson Collazo Work Phone: [facility] [address] Work Phone: Start: 04-18-2024 End: 04-18-2024 ambulatory Tyson Collazo [facility] Work Phone: Start: 04-10-2024 End: 04-10-2024 Office outpatient visit 15 minutes Angel Luis Groves NET APPLICATION ARCHITECT Work Phone: [facility] Comment on above: Psychophysiological insomnia (Primary Dx); Fibromyalgia; Constipation, unspecified constipation type Start: 04-10-2024 End: 04-10-2024 ambulatory ANGEL LUIS GROVES Not Available Start: 04-10-2024 End: 04-10-2024 Bamboo flowsheet Angel Luis Groves NET APPLICATION ARCHITECT Work Phone: [facility] Start: 04-10-2024 End: 04-10-2024 Bamboo flowsheet Angel Luis Groves NET APPLICATION ARCHITECT Work Phone: [facility] Start: 03-18-2024 End: 03-18-2024 ambulatory Ron Palomares Facility:[facility] Start: 03-18-2024 End: 03-18-2024 Patient encounter procedure Ron Palomares [facility] Start: 03-13-2024 End: 03-13-2024 Refill Angel Luis Groves NET APPLICATION ARCHITECT Work Phone: [facility] Comment on above: Fibromyalgia (Primar y Dx) Start: 03-12-2024 End: 03-12-2024 Office outpatient visit 15 minutes Angel Luis Groves NET APPLICATION ARCHITECT Work Phone: [facility] Comment on above: Constipation, unspec ified constipation type (Primary Dx); Fibromyalgia Start: 03-12-2024 End: 03-12-2024 ambulatory ANGEL LUIS GROVES Not Available Start: 03-12-2024 End: 03-12-2024 Bamboo flowsheet Angel Luis Groves NET APPLICATION ARCHITECT Work Phone: [facility] Start: 03-12-2024 End: 03-12-2024 Bamboo flowsheet Angel Luis Groves NET APPLICATION ARCHITECT Work Phone: [facility] Start: 03-07-2024 ambulatory Ron Palomares Facilit y:[facility] Start: 02-26-2024 Non-patient / Non-visit MD Roel Collazo Work Phone: [facility] Work Phone: Start: 08-25-2023 Casey Main MD Work Phone: [facility] Comment on above: Bipolar disorder wit h severe depression ([facility]/HCC) Start: 07-19-2023 End: 07-19-2023 ambulatory Segun R MONTSEL Facility:CD:[id number] Start: 06-07-2023 End: 06-07-2023 [facility]ulatory [facility] Start: 06-07-2023 End: 06-07-2023 Patient encounter procedure Segun R AMIE [facility] Start: 06-05-2023 ambulatory Ron Palomares Facilit y:STEPHANIE [facility] Start: 05-18-2023 ambulatory Ron Palomares Facilit y: Jun Start: 04-07-2023 End: 04-07-2023 ambulatory [facility] Start: 02-08-2023 ambulatory [facility] Start: 05-31-2022 End: 06-01-[address] TAMIKO NETTLES Facility:[facility] Start: 05-10-2022 End: 05-11-[address] ELLIOT JOSE Facility:[facility] Start: 04-19-2022 End: 04-20-2022 ambulatory KAJAL ESCOBEDO Facility:[facility] Start: 03-29-2022 End: 03-30-2022 ambulatory KAJAL ESCOBEDO Facility:[facility] Start: 03-10-2022 End: 03-10-2022 ambulatory TAWANA FOSTER Facility:[facility] Start: 03-07-2022 Encounter for prepro cedural cardiovascular examination TAWANA FOSTER [facility] Start: 03-07-2022 Encounter for prepro cedural laboratory examination TAWANA FOSTER [facility] Start: 03-03-2022 End: 03-04-2022 ambulatory TAWANA FOSTER Facility:[facility] Start: 03-03-2022 End: 03-04-2022 Encounter for preprocedural laboratory examination TAWANA FOSTER Facility:[facility] Start: 02-22-2022 End: 02-23-2022 ambulatory TAWANA Dong [facility] Facility:[facility] Start: 02-09-2022 End: 02-10-2022 ambulatory [facility] Letitia [facility] Facility:[facility] Start: 08-30-2021 End: 08-30-2021 ambulatory Kristin Quintana Other [facility] Other Start: 08-30-2021 Office outpatient vi sit 15 minutes Kristin Quintana [facility] Start: 06-07-2021 End: 06-07-[address] ROBERTO SCOTT Facility:[facility] Start: 11-14-2018 End: 11-15-2018 Patient encounter procedure DEFAULT PHYSICIAN Facility:[facility] Procedures Date Procedure Procedure Detail Performing Clinician Start: 03-06-2025 End: 03-06-2025 Psychiatric diagnostic evaluation JESSIKA (generalized anxiety disorder) Rohan Waters LPC Comment on above: JESSIKA (generalized anxiety disorder) ; Severe episode of recurrent major depressive disorder, without psychotic features (HCC); PTSD (post-traumatic stress disorder) Start: 03-05-2025 ALL CBC WITH AUTO DIFF Pascale Aichjarrettz NET APPLICATION ARCHITECT Work Phone: Start: 02-26-2025 SEGMENTAL BLOOD PRESSURE [...] 01-14-2025 ALL CBC WITH AUTO DIFF Pascale Aichholz NET APPLICATION ARCHITECT Work Phone: Start: 11-20-2024 IGP,APTIMA HPV,AGE GDLN Pascale Arana NET APPLICATION ARCHITECT Work Phone: Start: 11-20-2024 Microscopic observation [Identifier] in Cervix by Cyto stain Pascale Lastjarrettalex NET APPLICATION ARCHITECT Work Phone: Start: 10-23-2024 MM TOMOSYNTHESIS SCREENING BI Pascale potteralex NET APPLICATION ARCHITECT Work Phone: Start: 10-23-2024 Mammography Pascale Arana NET APPLICATION ARCHITECT Work Phone: Start: 10-03-2024 ALL CBC WITH AUTO DIFF Pascale Lastdes NET APPLICATION ARCHITECT Work Phone: Start: 09-09-2024 CT FOOT LT WO CON Generic External Data Provider Start: 09-05-2024 XR FOOT LT MIN 3V Generic External Data Provider Start: 08-12-2024 CHRONIC WOUND/ULCER (HTRX) Pascale Lastdes NET APPLICATION ARCHITECT Work Phone: Start: 08-01-2024 ALL CBC WITH AUTO DIFF Angel Luis Groves NET APPLICATION ARCHITECT Work Phone: Start: 07-19-2023 Colonoscopy Shaikh Etelvina WELLER Work Phone: Start: 02-09-2023 Esophagogastroduodenoscopy Segun HOLLOWAY Start: 07-24-2019 Bypass of stomach Segun HOLLOWAY Start: 07-24-2018 Transurethral cystoscopy Segun HOLLOWAY Start: 07-24-2017 Transurethral cystoscopy Segun WILLARDL Cholecystectomy Segun NILL H/O: surgery History of reconstructive repair of rectocele Shelia Muniz DO Work Phone: Ligation of fallopian tube Lashaun susan HOLLOWAY Repair of cystocele Segun HOLLOWAY Plan of Treatment Date Care Activity Detail Author Start: 07-19-2033 Screening for malign ant neoplasm of colon [facility] Start: 11-21-2027 Screening for malign ant neoplasm of cervix [facility] Start: 02-06-2026 Adult BMI Screening Adult BMI Screen ing [facility] Start: 02-06-2026 Tobacco Screening Tobacco Screening [facility] Start: 10-23-2025 Screening for malign ant neoplasm of breast Mammogram [facility] Start: 04-30-2025 End: 04-30-2025 Patient encounter procedure 04/30/2025 4:30 PM EDT Office Visit [facility] [address] [place] [address] Pascale Arana, NET APPLICATION ARCHITECT [address] [place] [address] [facility] Start: 04-09-2025 End: 04-09-2025 Social Work 04/09/2025 4:30 PM EDT Social Work [facility] [address] [place] [address] Rohan Waters LPC [facility] Start: 04-03-2025 End: 04-03-2025 Telemedicine consultation with patient 04/03/2025 9:00 AM EDT Telemedicine [facility] [address] [place] [address] Eunice Dias [facility] [address] [place] [id number] [facility] Start: 04-02-2025 End: 04-02-2025 Patient encounter procedure 04/02/2025 3:00 PM EDT Office Visit [facility] [address] [facility] [address] [place] [phone] Tania Asif MD [address] [place] [address] [facility] Start: 03-25-2025 End: 03-25-2025 Social Work 03/25/2025 2:30 PM EDT Social Work [facility] [address] [place] [phone] Rohan Waters LPC [facility] Start: 03-24-2025 Influenza vaccination [facility] Start: 03-06-2025 End: 03-06-2025 Social Work [facility] Comment on above: Arrived Start: 02-25-2025 End: [...] 02/25/2025 11:30 AM EDT Office Visit [facility] [address] [place] [phone] Pascale Arana NP [address] [place] [phone] [facility] Start: 02-24-2025 End: 02-24-2025 Patient encounter procedure [facility] Start: 02-05-2025 End: 02-05-2025 Patient encounter procedure 02/05/2025 3:20 PM EDT Office Visit [facility] [address] [place] [phone] Pascale Arana, NET APPLICATION ARCHITECT [address] [place] [phone] [facility] Start: 01-22-2025 End: 01-22-2025 Patient encounter procedure [facility] Comment on above: Bipolar disorder wit h severe depression (HCC) Start: 01-07-2025 End: 01-07-2026 CBC W Auto Differential panel - Blood CBC and differential Lab Routine Iron deficiency anemia secondary to inadequate dietary iron intake Expected: 01/07/2025 (Approximate), Expires: 01/07/2026 [facility] Work Phone: Comment on above: Expected: 01/07/2025 (Approximate), Expires: 01/07/2026 Start: 01-07-2025 End: 01-07-2026 Cobalamin (Vitamin B12) [Mass/volume] in Serum or Plasma Vitamin B12 Lab Routine B12 deficiency Iron deficiency anemia secondary to inadequate dietary iron intake Expected: 01/07/2025 (Approximate), Expires: 01/07/2026 [facility] Comment on above: Expected: 01/07/2025 (Approximate), Expires: 01/07/2026 Start: 01-07-2025 End: 01-07-2026 Ferritin [Mass/volume] in Serum or Plasma Ferritin Lab Routine Iron deficiency anemia secondary to inadequate dietary iron intake Expected: 01/07/2025 (Approximate), Expires: 01/07/2026 [facility] Comment on above: Expected: 01/07/2025 (Approximate), Expires: 01/07/2026 Start: 01-07-2025 End: 01-07-2026 Iron + transferrin + TIBC Iron + transferrin + TIBC Lab Routine Iron deficiency anemia secondary to inadequate dietary iron intake Expected: 01/07/2025 (Approximate), Expires: 01/07/2026 [facility] Comment on above: Expected: 01/07/2025 (Approximate), Expires: 01/07/2026 Start: 01-06-2025 End: 01-06-2025 [facility] Comment on above: Gastroesophageal ref lux disease, unspecified whether esophagitis present (Primary Dx); Class 1 obesity due to excess calories without serious comorbidity with body mass index (BMI) of 32.0 to 32.9 in adult; Cigarette nicotine dependence without complication Start: 11-20-2024 End: 11-20-2024 Patient encounter procedure 11/20/2024 3:20 PM EDT Office Visit [facility] [address] [place] [phone] Pascale Arana, NET APPLICATION ARCHITECT [address] [place] [phone] [facility] Start: 11-20-2024 End: 11-20-2025 THIN PREP TIS PAP AND HR HPV DNA THIN PREP TIS PAP AND HR HPV DNA Pathology and Cytology Routine Well woman exam with routine gynecological exam Expected: 11/20/2024 (Approximate), Expires: 11/20/2025 [facility] Work Phone: Comment on above: Expected: 11/20/2024 (Approximate), Expires: 11/20/2025 Start: 10-23-2024 End: 10-23-2024 Patient encounter procedure 10/23/2024 5:30 PM EDT Procedure Visit [facility] [address] [place] [phone] Pascale Arana, NET APPLICATION ARCHITECT [address] [place] [phone] [facility] Start: 10-07-2024 Influenza vaccination Influenza Vacc ine (#1) [facility] Comment on above: Postponed from 03/24 (Patient Refused) Start: 10-04-2024 End: 08-06-2025 CBC W Auto Differential panel - Blood CBC and differential Lab Routine B12 deficiency Iron deficiency anemia, unspecified iron deficiency anemia type Expected: 10/04/2024 (Approximate), Expires: 08/06/2025 [facility] Work Phone: Comment on above: Expected: 10/04/2024 (Approximate), Expires: 08/06/2025 Start: 10-04-2024 End: 08-06-2025 Cobalamin (Vitamin B12) [Mass/volume] in Serum or Plasma Vitamin B12 Lab Routine B12 deficiency Iron deficiency anemia, unspecified iron deficiency anemia type Expected: 10/04/2024 (Approximate), Expires: 08/06/2025 [facility] Comment on above: Expected: 10/04/2024 (Approximate), Expires: 08/06/2025 Start: 10-04-2024 End: 08-06-2025 Ferritin [Mass/volume] in Serum or Plasma Ferritin Lab Routine B12 deficiency Iron deficiency anemia, unspecified iron deficiency anemia type Expected: 10/04/2024 (Approximate), Expires: 08/06/2025 [facility] Comment on above: Expected: 10/04/2024 (Approximate), Expires: 08/06/2025 Start: 10-04-2024 End: 08-06-2025 Iron + transferrin + TIBC Iron + transferrin + TIBC Lab Routine B12 deficiency Iron deficiency anemia, unspecified iron deficiency anemia type Expected: 10/04/2024 (Approximate), Expires: 08/06/2025 [facility] Comment on above: Expected: 10/04/2024 (Approximate), Expires: 08/06/2025 Start: 10-02-2024 End: 10-02-2024 Patient encounter procedure [facility] Comment on above: Class 1 obesity due [...] B12 deficiency Expected: 10/02/2024 (Approximate), Expires: 10/02/2025 [facility] Comment on above: Expected: 10/02/2024 (Approximate), Expires: 10/02/2025 Start: 10-02-2024 End: 10-02-2025 Cobalamin (Vitamin B12) [Mass/volume] in Serum or Plasma Vitamin B12 Lab Routine B12 deficiency Expected: 10/02/2024 (Approximate), Expires: 10/02/2025 [facility] Comment on above: Expected: 10/02/2024 (Approximate), Expires: 10/02/2025 Start: 10-02-2024 End: 10-02-2025 Ferritin [Mass/volume] in Serum or Plasma Ferritin Lab Routine Iron deficiency anemia secondary to inadequate dietary iron intake Expected: 10/02/2024 (Approximate), Expires: 10/02/2025 [facility] Comment on above: Expected: 10/02/2024 (Approximate), Expires: 10/02/2025 Start: 10-02-2024 End: 10-02-2025 Iron + transferrin + TIBC Iron + transferrin + TIBC Lab Routine Iron deficiency anemia secondary to inadequate dietary iron intake Expected: 10/02/2024 (Approximate), Expires: 10/02/2025 [facility] Comment on above: Expected: 10/02/2024 (Approximate), Expires: 10/02/2025 Start: 10-02-2024 End: 12-02-2025 MG Breast - bilateral Screening Bilateral screening mammogram Imaging Routine Encounter for screening mammogram for malignant neoplasm of breast Expected: 10/02/2024 (Approximate), Expires: 12/02/2025 [facility] Work Phone: Comment on above: Expected: 10/02/2024 (Approximate), Expires: 12/02/2025 Start: 09-04-2024 End: 09-04-2024 Patient encounter procedure [facility] Comment on above: Arrived Start: 08-12-2024 End: 08-12-2024 Patient encounter procedure 08/12/2024 4:00 PM EST Office Visit [facility] [address] [place] [phone] Pascale Arana NP [address] [place] [phone] Arrived [facility] Comment on above: Arrived Start: 08-12-2024 End: [...] iron intake Expected: 07/31/2024 (Approximate), Expires: 07/31/2025 [facility] Comment on above: Expected: 07/31/2024 (Approximate), Expires: 07/31/2025 Start: 07-31-2024 End: 07-31-2025 Iron + transferrin + TIBC Iron + transferrin + TIBC Lab Routine Iron deficiency anemia secondary to inadequate dietary iron intake Expected: 07/31/2024 (Approximate), Expires: 07/31/2025 [facility] Comment on above: Expected: 07/31/2024 (Approximate), Expires: 07/31/2025 Start: 07-10-2024 End: 07-10-2024 Patient encounter procedure 07/10/2024 4:30 PM EST Office Visit [facility] [address] [place] [phone] Angel Luis Groves NP [address] [place] [phone] [facility] Start: 06-05-2024 End: 06-05-2024 Patient encounter procedure 06/05/2024 5:30 PM EST Office Visit [facility] [address] [place] [phone] Angel Luis Groves, NET APPLICATION ARCHITECT [address] [place] [phone] [facility] Start: 04-10-2024 End: 04-10-2024 Patient encounter procedure [facility] Comment on above: Arrived Start: 03-24-2024 Influenza vaccination Influenza Vacc ine (#1) [facility] Start: 03-12-2024 End: 03-12-2024 Patient encounter procedure 03/12/2024 3:30 PM EDT Office Visit [facility] [address] [place] [phone] Angel Luis Groves NP [address] [place] [phone] Arrived [facility] Comment on above: Arrived Start: 11-13-2023 End: 11-13-2023 Patient encounter procedure 11/13/2023 4:45 PM EDT Office Visit [facility] [address] [place] [phone] Shaikh Main MD [address] [place] [phone] [facility] Start: 03-24-2023 Influenza vaccination Influenza Vacc ine (#1) [facility] Start: 2021 Administration of varicella zoster vaccine Zoster (Shingles) Vaccine (1 of 2) [facility] Start: 2011 Screening for malign ant neoplasm of breast Mammogram [facility] Start: 2001 Screening for malign ant neoplasm of cervix [facility] Start: 1992 Screening for malign ant neoplasm of cervix Pap Smear [facility] Start: 1990 DTaP,Tdap and Td Vac cines (1 - Tdap) DTaP,Tdap and Td Vaccines (1 - Tdap) [facility] Start: 1989 Adult BMI Follow Up Plan Adult BMI Follow Up Plan [facility] Start: 1983 Depression Screening Depression Scre ening [facility] Start: 1971 Screening for malign ant neoplasm of colon [facility] Start: 1971 Screening for malign ant neoplasm of lung Lung Cancer Screening Shared Decision Making [facility] Start: 1971 Tobacco Counseling Tobacco Counselin g [facility] CBC W Auto Different ial panel - Blood CBC and differential Lab Routine Iron deficiency anemia secondary to inadequate dietary iron intake Ordered: 07/31/2024 [facility] Work Phone: Comment on above: Ordered: 07/31/2024 DRUG TOX MONITORIGN 6 W/ CONF,URINE DRUG TOX MONITORIGN 6 W/ CONF,URINE Lab Routine Encounter for drug screening Ordered: 01/22/2025 [facility] Work Phone: Comment on above: Ordered: 01/22/2025 Sjogrens syndrome-A extractable nuclear Ab [Units/volume] in Serum [facility] Sjogrens syndrome-B extractable nuclear Ab [Units/volume] in Serum [facility] Immunizations Immunization Date Immunization Notes Care Provider Trena loving NEGATED: Highlighted row has not occurred!06-07-2023 influenza virus vaccine, unspecified formulation Segun HOLLOWAY [facility] Payers Date Payer Category Payer Private Health Insurance 2024 Self-pay 2009 Commercial Managed C are - POS [employer] [id number] 2009 [facility] Care O (unspecified) [id number] 1971 Unknown [id number] 2.16.840.1.383348.3.57 9.2.647 1971 Unknown [id number] 2.16.840.1.589574.3.57 9.2.593 1971 Unknown [id number] 2.16.840.1.384622.3.57 9.2.593 1971 Unknown [id number] 2.16.840.1.232218.3.57 9.2.593 1971 Unknown [id number] 2.16.840.1.190330.3.57 9.2.593 1971 Unknown [id number] 2.16.840.1.200866.3.57 9.2.593 1971 Unknown [id number] 2.16.840.1.364808.3.57 9.2.593 1971 Unknown [id number] 2.16.840.1.640961.3.57 9.2.593 1971 Unknown [id number] 2.16.840.1.331965.3.57 9.2.593 1971 Unknown [id number] 2.16.840.1.725783.3.57 9.2.593 1971 Unknown [id number] 2.16.840.1.854881.3.57 9.2.727 1971 Unknown [id number] 2.16.840.1.207852.3.57 9.2.727 1971 Unknown [id number] 2.16.840.1.889676.3.57 9.2.727 1971 Unknown [id number] 2.16.840.1.390705.3.57 9.2.727 1971 Unknown [id number] 2.16.840.1.371204.3.57 9.2.727 1971 Unknown [id number] 2.16.840.1.188158.3.57 9.2.1286 1971 Unknown [id number] 2.16.840.1.915660.3.57 9.2.1259 1971 Unknown [id number] 2.16.840.1.833239.3.57 9.2.1259 1971 Unknown [id number] 2.16.840.1.774941.3.57 9.2.1259 1971 Unknown [id number] 2.16.840.1.572708.3.57 9.2.1259 1971 Unknown [id number] 2.840.1.345688.3.57 9.2.1259 1971 Unknown [id number] 2.840.1.802024.3.57 9.2.1259 1971 Unknown [id number] 2.840.1.412333.3.57 9.2.1259 1971 Unknown [id number] 2.840.1.899972.3.57 9.2.1259 1971 Unknown [id number] 2.16840.1.579081.3.57 9.2.1259 1971 Unknown [id number] 2.16840.1.881354.3.57 9.2.1259 1971 Unknown [id number] 2.16.840.1.427556.3.57 9.2.1259 1971 Unknown [id number] 2.16.840.1.625660.3.57 9.2.1259 1971 Unknown [id number] 2.16.840.1.956999.3.57 9.2.1259 1971 Unknown [id number] 2.16.840.1.641445.3.57 9.2.196 1971 Unknown [id number] 2.16.840.1.306162.3.57 9.2.196 1959 Private Health Insurance [id number] 2.16.840.1.435834.19 Unknown Unknown [id number] 2.16.840.1.989220.3.57 9.2.531 Social History Date Type Detail Facility Unknown if ever smoked [facility] Other Start: 08-07-2023 End: 01-22-2025 Sex Assigned At [facility] Ozzy [facility] Start: 06-07-2023 End: 03-18-2024 Tobacco smoking status Heavy tobacco smoker (finding) [facility] Tobacco smoking status Former sm okeless tobacco [...] Start: 1970 Sex Assigned At Female [facility] History of tobacco use Passive smoker [facility] Start: 01-22-2025 End: 02-25-2025 Alcoholic beverage intake Ex-drinker (finding) [facility] Start: 02-26-2015 Sex Female (finding) [facility] Start: 02-24-2025 Alcoholic beverage intake Current drinker of alcohol (finding) [facility] Goals Date Patient Goal Desired Activity /State Personal health goal Functional Status Date Assessment Result Facility 01-22-2025 Generalized anxiety disorder 7 item (JESSIKA-7) [facility] 01-22-2025 Patient Health Quest ionnaire 2 item (PHQ-2) [Reported] [facility] 01-22-2025 PHQ-9 quick depressi on assessment panel [Reported.PHQ] [facility] 03-18-2024 Functional Status N/A [facility] 06-07-2023 Functional Status N/A General Mendoza [...] for last several weeks, she has seen psychological operations officer, meds changed and she is now on [...] of the risks of continued smoking: stroke, VA, all forms of cancer, lung disease, and [...] of the risks of continued smoking: stroke, VA, all forms of cancer, lung disease, and . Options for quitting smoking include: cold turkey, hypnosis, acupuncture, nicotine replacement meds (gum, lozenges, and patches), Buproprion, and Varenicline. At this time pt is encouraged to evaluate their goals for wanting to quit smoking, and reach out to provider when ready to start this process documented in this encounter [facility] 02-25-2025 Instructions Pascale Arana NP - 02/25/2025 11:30 AM EDT Off work RTW date 03/25/25 documented in this encounter [facility] 02-24-2025 History of Present illness [...] [place] [facility] [place] get an epidural in her neck in the future to help with the pain. She is scheduled to see Rohan Waters (CHERYL) on March 06 to start counseling. [...] as described above. documented in this encounter [facility] 02-06-2025 History of Present illness [...] she has been very active doing outdoor [employer] work and helping her daughter remodel, and [...] mesh was utilized documented in this encounter [facility] 01-22-2025 History of Present illness Narrative HPI: [...] (11) who also lives there. 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 Has been with [employer] for 15 years. She states she is [...] the local ER or call Suicide Hotline (246) for any psychosis, suicidal or homicidal ideation, or with any risk of harm to self or others. Patient was seen Face to Face, Total time spent with patient was 60 minutes, which includes reviewing chart documents, previous notes/records, counseling and discussion with patient and/or coordination of care as described above. documented in this encounter [facility] 01-06-2025 Telephone encounter Note Pt states she was not contacted about her iron infusion can we check with TB about this [place] [facility] 01-06-2025 Miscellaneous Notes Pt states she was not contacted about her iron infusion can we check with TB about this [place] documented in this encounter [facility] 01-06-2025 History of Present illness [...] of the risks of continued smoking: stroke, VA, all forms of cancer, lung disease, and [...] of the risks of continued smoking: stroke, VA, all forms of cancer, lung disease, and [...] Current med: pantoprazole documented in this encounter [facility] 01-06-2025 Instructions Pascale Arana NP - 01/06/2025 4:30 PM EDT Discontinue the citalopram Start lamotrigine 1 pill at night for 2 weeks, then increase to 1 pill twice a day after that documented in this encounter [facility] 12-18-2024 Telephone encounter Note Y[place]. This is Steve at [facility] calling in regards to 1 of Pascale giraldo's patients. Her name is Talia Gipson, and we need to clarify some orders with her. She is supposed to be coming later today. Give us a call back as soon as possible. [phone], extension [phone], thank you. [facility] 12-18-2024 Miscellaneous Notes [place]. This is Steve at [facility] calling in regards to 1 of Pascale giraldo's patients. Her name is Talia Gipson, and we need to clarify some orders with her. She is supposed to be coming later today. Give us a call back as soon as possible. [phone], extension [phone], thank you. documented in this encounter [facility] 11-20-2024 History of Present illness [...] they will approve Infed, I did contact [facility] 11/19/24 they can order it, we [...] nursing note reviewed. Exam conducted with a fire control technician g present. Constitutional: General: She is not in [...] 37.5 MG tablet documented in this encounter [facility] 11-20-2024 Instructions Pascale Arana NP - 11/20/2024 3:20 PM EDT Citalopram: currently on 40mg daily, cut pill in half so only at 20mg dose Stop the lanxoprazole, and will trial pantoprazole 40mg daily GERD and if not better at fu appt we will refer to GI We will call about PAP smear results documented in this encounter [facility] 10-23-2024 History of Present illness [...] of the risks of continued smoking: stroke, VA, all forms of cancer, lung disease, and [...] of the risks of continued smoking: stroke, VA, all forms of cancer, lung disease, and [...] weight was 206 documented in this encounter [facility] 10-02-2024 History of Present illness [...] of the risks of continued smoking: stroke, VA, all forms of cancer, lung disease, and [...] of the risks of continued smoking: stroke, VA, all forms of cancer, lung disease, and [...] weight 200 lbs documented in this encounter [facility] 10-02-2024 Instructions Pascale Arana NP - 10/02/2024 5:00 PM EDT Check labs Mammogram: will send to [facility] Schedule PAP documented in this encounter [facility] 09-04-2024 Instructions Angel Luis Groves NP - 09/04/2024 5:00 PM EST Keep up the good work!!! documented in this encounter [facility] 08-14-2024 Telephone encounter Note Patient said her dose was increased and now she is out of this medication. Can you please refill. ANAYELI [facility] 08-14-2024 Miscellaneous Notes Patient said her dose was increased and now she is out of this medication. Can you please refill. ANAYELI documented in this encounter [facility] 08-12-2024 History of Present illness Narrative Associated Problem(s): Cutaneous abscess of abdominal wall Warm compress, recommend since she gets repeated abscess we check a culture and treat appropriately based on the culture Culture obtained Associated Problem(s): Environmental and seasonal allergies Cont lalya, add flonase Associated Problem(s): Acute non-recurrent maxillary [...] of the risks of continued smoking: stroke, VA, all forms of cancer, lung disease, and [...] of the risks of continued smoking: stroke, VA, all forms of cancer, lung disease, and [...] SUPERFICIAL WOUND (HTRX) documented in this encounter [facility] 08-12-2024 Instructions Pascale Arana NP - 08/12/2024 4:00 PM EST Z pack, finish this Fluids, rest Cont layla and we will add flonase nasal spray Warm compress to affected area, will treat based on culture report documented in this encounter [facility] 07-31-2024 History of Present illness [...] 37.5 MG tablet documented in this encounter [facility] 07-31-2024 Instructions Angel Luis Groves NP - 07/31/2024 3:00 PM EST Notify office with any symptoms of chest pain, dyspnea, heart palpitations, or any anxiety symptoms. F/U in 4 weeks to document weight loss. Increase physical activity as tolerated, and lower caloric intake to 1600 calories daily if no contraindications. documented in this encounter [facility] 07-24-2024 History of Present illness [...] if no contraindications. documented in this encounter [facility] 06-03-2024 Telephone encounter Note Pt takes the 60mg in morning and 30 mg in the afternoon, so both. [facility] 06-03-2024 Miscellaneous Notes Pt takes the 60mg in morning and 30 mg in the afternoon, so both. Patient is asking for a 90 day supply. Patient said 60 mg were denied. documented in this encounter [facility] 06-03-2024 Telephone encounter Note Patient is asking for a 90 day supply. Patient said 60 mg were denied. [facility] 04-10-2024 History of Present illness [...] has since resolved. documented in this encounter [facility] 03-13-2024 History of Present illness [...] ABDOMINAL PAIN. PT SCHEDULED TO SEE [facility] [place] ON 03/18 AT 1500. ). HPI IS here today for one week follow-up for constipation. Prescrivbed lacutlose at last visit-did not case picker. Went on vacation to in [facility] in [place] for the weekend and had X3 BM's. Denies blood in stool. States she has been stressed recentlty and feels being away heloped her relax and she was finally able to pass BM. Sees GI in [place] on Sunday 03/18 @ 3pm. Still has [...] GI next week. documented in this encounter [facility] 03-12-2024 Instructions Angel Luis Groves NP - 03/12/2024 3:30 PM EDT Referral sent to Rheumatology- Dr. Muller in [place], [place]- they will call you! Have mammogram completed. Call if you need anything! documented in this encounter [facility] 06-07-2023 Note Chief Complaint consultation for colonoscopy HPI Staff 53 year old female presents on consultation from Dr. Bustamante for colonoscopy. Patient hospitalized in January with HGB of 4.8. At that time, patient was experiencing profound fatigue, dizziness and SOB. EGD was completed and normal. Patient left AMA prior to colonoscopy being completed. States symptoms have resolved. H/H completed 04/24- 9.3.8. She is taking Ferrous Sulfate 325mg daily. [...] fibromyalgia, referred for severe anemia, admitted to [facility] in January with hb of 5; [...] Cap-DR, 30 mg= (more content not included)... [facility] Comment on above: Result Comment: Elec tronically Signed By: AMIE WELLER, Segun Denis\.meean\Date and Time Signed: 06/07/23 17:17 EST 06-07-2023 Evaluation + Plan note Diagnostic Tests PendingIron Level 06/07/23Ferritin 06/07/23Vitamin B12 Level 06/07/23 [facility] 04-07-2023 Note Cardiology Clinic No te Subjective [...] -Resolved, likely exacerbated (more content not included)... [place] [facility] 04-07-2023 Note Patient here for [...] All other systems reviewed and are negative. [facility] 02-08-[address] [facility] SUBJECTIVE Chief Complaint Patient presents [...] 6 weeks (around 03/22/2023). Carol Webb APRN-[facility] Cardiovascular Medicine [facility] 05-31-2022 Note PROCEDURE: XR FOOT [...] authenticated by: TAMIKO NETTLES Date: 2022-05-31 20:30 [facility] 05-11-2022 Note PROCEDURE: XR FOOT L [...] authenticated by: ELLIOT JOSE Date: 2022-05-11 16:14 [facility] 04-19-2022 Note PROCEDURE: XR FOOT L [...] by: TAMIKO NETTLES Date: 2022-04-19 18:16 [facility] 03-30-2022 Note PROCEDURE: XR FOOT [...] by: TAMIKO NETTLES Date: 2022-03-30 06:41 [facility] 03-11-2022 Note PROCEDURE: XR FOOT [...] authenticated by: ELLIOT JOSE Date: 2022-03-11 08:26 [facility] 03-11-2022 Note PROCEDURE: XR FOOT L T 2V HISTORY: Pain COMPARISON: XR foot left 02/09/2022 FINDINGS: BONES:Multiple intraoperative images demonstrate mechanical fusion of the second and third tarsal-metatarsal joints. SOFT TISSUES:Expected intraoperative findings. EFFUSION:None visible. OTHER: Negative. IMPRESSION: 1. Mechanical fusion of second and third tarsal-metatarsal joints. Electronically authenticated by: ELLIOT JOSE Date: 2022-03-11 07:55 [facility] 02-10-2022 Note PROCEDURE: XR FOOT L T MIN 3 VIEWS COMPARISON: 12/15/2020 HISTORY: Pain FINDINGS: BONES:No acute fracture or dislocation. Stable moderate degenerative changes most significant at the tarsometatarsal joints. Moderate plantar enthesopathic spurring of the calcaneus SOFT TISSUES:Negative. No visible soft tissue swelling. EFFUSION:None visible. OTHER: Negative. IMPRESSION: Stable moderate degenerative changes Electronically authenticated by: TAMIKO NETTLES Date: 2022-02-10 07:37 [facility] 08-30-2021 Evaluation note Encounter Date Diagnosis [...] in writting by [facility] document Memorandom Other Evaluation note* Diagnosis Bipolar disorder with severe depression (CMS/HCC) documented in this encounter [facility] HealthcareEvaluation noteNo assessment information availableSum[facility] Work Phone: Evaluation note* Diagnosis Breast [...] gastric bypass Bipolar disorder with severe depression ([facility]/HCC) Encounter for screening mammogram for breast cancer- [...] in full remission, most recent episode depressed ([facility]/HCC) Psychophysiological insomnia Persistent disorder of initiating or [...] Primary Screening for diabetes mellitus Seizure-like activity ([facility]/HCC) Fluid level behind tympanic membrane of both [...] unspecified site Bipolar disorder with severe depression ([facility]/HCC) Antibiotic-induced yeast infection Cutaneous abscess of groin B12 deficiency- Primary Psychophysiological insomnia Persistent disorder of initiating or maintaining sleep Iron deficiency anemia secondary to inadequate dietary iron intake History of gastric bypass Bipolar disorder with severe depression ([facility]) Encounter for screening mammogram for breast cancer- Primary Screening for diabetes mellitus Seizure-like activity ([facility]) Fluid level behind tympanic membrane of both [...] 33.0-33.9,adult- Primary Bipolar disorder with severe depression ([facility]) Fibromyalgia Unspecified myalgia and myositis Gastro-esophageal reflux [...] in full remission, most recent episode depressed ([facility]/HCC) Psychophysiological insomnia Persistent disorder of initiating or [...] gastric bypass Bipolar disorder with severe depression ([facility]/HCC) Encounter for screening mammogram for breast cancer- Primary Screening for diabetes mellitus Seizure-like activity ([facility]) Fluid level behind tympanic membrane of both [...] deficiency BMI 32.0-32.9,adult documented in this encounter [facility] HealthcareEvaluation note* Diagnosis Breast screening- Primary [...] whether esophagitis present documented in this encounter [facility] HealthcareEvaluation note* Diagnosis Breast screening- Primary Breast [...] gastric bypass Bipolar disorder with severe depression ([facility]/HCC) Encounter for screening mammogram for breast cancer- Primary Screening for diabetes mellitus Seizure-like activity ([facility]) Fluid level behind tympanic membrane of both [...] in full remission, most recent episode depressed ([facility]) Psychophysiological insomnia Persistent disorder of initiating or maintaining sleep B12 deficiency Fibromyalgia Unspecified myalgia and myositis Screening mammogram for breast cancer Bipolar disorder with severe depression ([facility]/HCC)- Primary Psychophysiological insomnia Persistent disorder of initiating [...] in full remission, most recent episode depressed ([facility]/HCC) Psychophysiological insomnia Persistent disorder of initiating or [...] Primary Screening for diabetes mellitus Seizure-like activity ([facility]) Fluid level behind tympanic membrane of both [...] of tympanic membranes documented in this encounter [facility] HealthcareEvaluation note* Diagnosis Breast screening- Primary [...] current episode depressed, severe, without psychotic features ([facility]) B12 deficiency- Primary Bipolar disorder, current episode depressed, severe, without psychotic features ([facility]) Psychophysiological insomnia Persistent disorder of initiating or maintaining sleep Iron deficiency anemia secondary to inadequate dietary iron intake URTI (acute upper respiratory infection) Acute upper respiratory infections of unspecified site Bipolar disorder with severe depression ([facility]) Antibiotic-induced yeast infection Cutaneous abscess of groin B12 deficiency- Primary Psychophysiological insomnia Persistent disorder of initiating or maintaining sleep Iron deficiency anemia secondary to inadequate dietary iron intake History of gastric bypass Bipolar disorder with severe depression ([facility]) Encounter for screening mammogram for breast cancer- Primary Screening for diabetes mellitus Seizure-like activity ([facility]) Fluid level behind tympanic membrane of both [...] of tympanic membranes documented in this encounter [facility] HealthcareEvaluation note* Diagnosis Breast screening- Primary [...] Screening for diabetes mellitus Seizure-like activity ([facility]) Fluid level behind tympanic membrane of both [...] Screening for diabetes mellitus Seizure-like activity ([facility]) Fluid level behind tympanic membrane of both [...] of tympanic membranes documented in this encounter [facility] HealthcareEvaluation note* Diagnosis Cystocele with second degree uterine prolapse- Primary History of reconstructive repair of rectocele Urge urinary incontinence Urge incontinence Incomplete emptying of bladder Incomplete bladder emptying Atrophic vaginitis Postmenopausal atrophic vaginitis documented in this encounter [facility] SystemEvaluation note* Diagnosis Breast screening- Primary Breast [...] Date Medical History anxiety Medical History GERD Memorandom Other Hospital course Narrative No data available for this section General Surgery [facility] Discharge instructions No data available for this section General Surgery [facility] Instructions* Attachments The following attachments cannot be sent through Care Everywhere. * Pelvic floor muscle exercises (Wolof) documented in this encounterProSycam[facility] CenterCorrigan and [facility] Sport[facility] SystemInstructionsNot on file documented in this encounterProChina Wi Max SystemProgress note No data available for this section General Surgery [employer] Reason for referral (narrative)* Consultation (Routine) - Pending Review Specialty Diagnoses / Procedures Referred By Carlos white Referred To Contact Rheumatology Diagnoses Fibromyalgia Procedures SD OFFICE/OUTPATIENT [facility] 60 MINUTES Angel Luis Groves NP [address] [place] [address] Tyson Collazo MD [address] [place] [address] Referral ID Status Reason Start Date Expiration Date Visits Requested Visits Authorized [id number] Pending Review Specialty Services Required 03/13/2024 09/09/2024 [...] and content) DATE CREATED AUTHOR 11/16/2018 [facility] DATE CREATED AUTHOR AUTHOR'S ORGANIZ ATION 06/05/2022 [facility] DATE CREATED AUTHOR AUTHOR'S ORGANIZ ATION 04/09/2023 [facility] DATE CREATED AUTHOR AUTHOR'S ORGANIZ ATION 03/20/2024 [facility] DATE CREATED AUTHOR AUTHOR'S ORGANIZ ATION 04/29/2024 [facility] DATE CREATED AUTHOR AUTHOR'S ORGANIZ ATION 02/10/2025 [facility] DATE CREATED AUTHOR AUTHOR'S ORGANIZ ATION 03/08/2025 [facility] DATE CREATED AUTHOR AUTHOR'S ORGANIZ ATION 03/16/2025 [facility] REASON FOR VISIT (unrecogniz ed section [...] Evaluation Specialty Diagnoses / Procedures Referred By Contac t Referred To Contact Behavioral Health Diagnoses Bipolar disorder with severe depression (HCC) Procedures SD OFFICE/OUTPATIENT [facility] 60 MINUTES Pascale Arana NP [address] [place] [address] Phone: tel: fax: Eunice Dias, [facility]- [address] [facility] [address] [place] [address] Phone: tel: fax: Referral ID Status Reason Start Date Expiration Date V isits Requested Visits Authorized [id number] Closed Specialty Services Required 01/06/2025 07/05/2025 1 1 Reason Comments New Patient New Patient presents for evaluation of a possible rectocele. Reason Comments Med Management Follow-up Reason Comments Bipolar disorder with severe depression Reason Comments Anxiety Depression PTSD (Post-Traumatic Stress Disorder) Patient Care team informatio n (unrecognized section and content) [employer] Helper Relationship Specialty Start Date End Date Shaikh Main MD PCP - General Internal Medicine 04/20/23 Team Status: Active Member Role Status Dates Conrad Ahn DO Attending Provider Active Sta rt: February 26, 2024 Team Status: Inactive Member Role Status Dates Tyson Collazo MD Attending Provider Active St art: April 18, 2024 End: April 18, 2024 [employer] Relationship Specialty Start Date End Date Molina De Anda MD [address] [place] [phone] PCP - General Family Medicine 02/21/24 Angel Luis Groves NP [address] [place] [address] Nurse Practitioner Family Medicine 02/21/24 [employer] Helper Relationship Specialty Start Date End Date Molina De Anda MD [address] [place] [address] PCP - General Family Medicine 02/21/24 Angel Luis Groves NP [address] [place] [address] Nurse Practitioner Family Medicine 02/21/24 [employer] Helper Relationship Specialty Start Date End Date Molina De Anda MD [address] [place] [address] PCP - General Family Medicine 02/21/24 Angel Luis Groves NP [address] [place] [address] Nurse Practitioner Family Medicine 02/21/24 [employer] Helper Relationship Specialty Start Date End Date Molina De Anda MD [address] [place] [address] PCP - General Family Medicine 02/21/24 Angel Luis Groves NP [address] [place] [address] Nurse Practitioner Family Medicine 02/21/24 [employer] Helper Relationship Specialty Start Date End Date Molina De Anda MD [address] [place] [address] PCP - General Family Medicine 02/21/24 Angel Luis Groves NP [address] [place] [address] Nurse Practitioner Family Medicine 02/21/24 [employer] Helper Relationship Specialty Start Date End Date Molina De Anda MD [address] [place] [phone] PCP - General Family Medicine 02/21/24 Angel Luis Groves NP [address] [place] [address] Nurse Practitioner Family Medicine 02/21/24 [employer] Helper Relationship Specialty Start Date End Date Molina De Anda MD [address] [place] [phone] PCP - General Family Medicine 02/21/24 Angel Luis Groves NP [address] [place] [address] Nurse Practitioner Family Medicine 02/21/24 [employer] Helper Relationship Specialty Start Date End Date Molina De Anda MD [address] [place] [phone] PCP - General Family Medicine 02/21/24 Angel Luis Groves NP [address] [place] [address] Nurse Practitioner Family Medicine 02/21/24 [employer] Helper Relationship Specialty Start Date End Date Molina De Anda MD [address] [place] [phone] PCP - General Family Medicine 02/21/24 Angel Luis Groves NP [address] [place] [address] Nurse Practitioner Family Medicine 02/21/24 [employer]inter Helper Relationship Specialty Start Date End Date Molina De Anda MD [address] [place] [address] PCP - General Family Medicine 02/21/24 Angel Luis Groves NP [address] [place] [address] Nurse Practitioner Family Medicine 02/21/24 [employer]inter Helper Relationship Specialty Start Date End Date Molina De Anda MD [address] [place] [address] PCP - General Family Medicine 02/21/24 Angel Luis Groves NP [address] [place] [address] Nurse Practitioner Family Medicine 02/21/24 [employer] Helper Relationship Specialty Start Date End Date Molina De Anda MD [address] [place] [address] PCP - General Family Medicine 02/21/24 Angel Luis Groves NP [address] [place] [address] Nurse Practitioner Family Medicine 02/21/24 [employer] Helper Relationship Specialty Start Date End Date Molina De Anda MD [address] [place] [address] PCP - General Family Medicine 02/21/24 Angel Luis Groves NP [address] [place] [address] Nurse Practitioner Family Medicine 02/21/24 [employer] Helper Relationship Specialty Start Date End Date Molina De Anda MD [address] [place] [address] PCP - General Family Medicine 02/21/24 Angel Luis Groves NP [address] [place] [address] Nurse Practitioner Family Medicine 02/21/24 [employer] Helper Relationship Specialty Start Date End Date Molina De Anda MD [address] [place] [address] PCP - General Family Medicine 02/21/24 Angel Luis Groves NP [address] [place] [address] Nurse Practitioner Family Medicine 02/21/24 [employer] Helper Relationship Specialty Start Date End Date Molina De Anda MD [address] [place] [address] PCP - General Family Medicine 02/21/24 Angel Luis Groves NP [address] [place] [address] Nurse Practitioner Family Medicine 02/21/24 [employer]inter Helper Relationship Specialty Start Date End Date Molina De Anda MD [address] [place] [address] PCP - General Family Medicine 02/21/24 Angel Luis Groves NP [address] [place] [address] Nurse Practitioner Family Medicine 02/21/24 [employer]inter Helper Relationship Specialty Start Date End Date Molina De Anda MD [address] [place] [address] PCP - General Family Medicine 02/21/24 Angel Luis Groves NP [address] [place] [address] Nurse Practitioner Family Medicine 02/21/24 [employer] Helper Relationship Specialty Start Date End Date Molina De Anda MD [address] [place] [address] PCP - General Family Medicine 02/21/24 Angel Luis Groves NP [address] [place] [address] Nurse Practitioner Family Medicine 02/21/24 [employer] Helper Relationship Specialty Start Date End Date Molina De Anda MD [address] [place] [address] PCP - General Family Medicine 02/21/24 Angel Luis Groves NP [address] [place] [address] Nurse Practitioner Family Medicine 02/21/24 [employer] Printer Helper Relationship Specialty Start Date End Date Molina De Anda MD [address] [place] [phone] PCP - General Family Medicine 02/21/24 Angel Luis Groves NP [address] [place] [phone] Nurse Practitioner Family Medicine 02/21/24 [employer] Helper Relationship Specialty Start Date End Date Molina De Anda MD [address] [place] [phone] PCP - General Family Medicine 02/21/24 Angel Luis Groves NP [address] [place] [phone] Nurse Practitioner Family Medicine 02/21/24 [employer] Helper Relationship Specialty Start Date End Date Molina De Anda MD [address] [place] [phone] PCP - General Family Medicine 02/21/24 Angel Luis Groves NP [address] [place] [phone] Nurse Practitioner Family Medicine 02/21/24 [employer] Helper Relationship Specialty Start Date End Date Molina De Anda MD [address] [place] [phone] PCP - General Family Medicine 02/21/24 Angel Luis Groves NP [address] [place] [phone] Nurse Practitioner Family Medicine 02/21/24 [employer] Helper Relationship Specialty Start Date End Date Molina De Anda MD [address] [place] [phone] PCP - General Family Medicine 02/21/24 Angel Luis Groves NP [address] [place] [phone] Nurse Practitioner Family Medicine 02/21/24 [employer] Helper Relationship Specialty Start Date End Date Molina De Anda MD [address] [place] [phone] PCP - General Family Medicine 02/21/24 Angel Luis Groves NP [address] [place] [phone] Nurse Practitioner Family Medicine 02/21/24 [employer] Helper Relationship Specialty Start Date End Date Molina De Anda MD [address] [place] [phone] PCP - General Family Medicine 02/21/24 Angel Luis Groves NP [address] [place] [phone] Nurse Practitioner Family Medicine 02/21/24 [employer] Helper Relationship Specialty Start Date End Date Molina De Anda MD [address] [place] [phone] PCP - General Family Medicine 02/21/24 Angel Luis Groves NP [address] [place] [phone] Nurse Practitioner Family Medicine 02/21/24 [employer] Helper Relationship Specialty Start Date End Date Molina De Anda MD [address] [place] [phone] PCP - General Family Medicine 02/21/24 Angel Luis Groves NP [address] [place] [address] Nurse Practitioner Family Medicine 02/21/24 [employer] Helper Relationship Specialty Start Date End Date Molina De Anda MD [address] [place] [phone] PCP - General Family Medicine 02/21/24 Angel Luis Groves NP [address] [place] [phone] Nurse Practitioner Family Medicine 02/21/24 [employer]inter Helper Relationship Specialty Start Date End Date Molina De Anda MD [address] [place] [phone] PCP - General Family Medicine 02/21/24 Angel Luis Groves NP [address] [place] [phone] Nurse Practitioner Family Medicine 02/21/24 [employer]inter Helper Relationship Specialty Start Date End Date Molina De Anda MD [address] [place] [address] PCP - General Family Medicine 02/21/24 Angel Luis Groves NP [address] [place] [address] Nurse Practitioner Family Medicine 02/21/24 [employer]inter Helper Relationship Specialty Start Date End Date Molina De Anda MD [address] [place] [address] PCP - General Family Medicine 02/21/24 Angel Luis Groves NP [address] [place] [address] Nurse Practitioner Family Medicine 02/21/24 [employer]inter Helper Relationship Specialty Start Date End Date Molina De Anda MD [address] [place] [address] PCP - General Family Medicine 02/21/24 Angel Luis Groves NP [address] [place] [address] Nurse Practitioner Family Medicine 02/21/24 [employer]inter Helper Relationship Specialty Start Date End Date Molina De Anda MD [address] [place] [address] PCP - General Family Medicine 02/21/24 Angel Luis Groves NP [address] [place] [address] Nurse Practitioner Family Medicine 02/21/24 [employer] Printer Helper Relationship Specialty Start Date End Date Molina De Anda MD [address] [place] [address] PCP - General Family Medicine 02/21/24 Angel Luis Groves NP [address] [place] [address] Nurse Practitioner Family Medicine 02/21/24 [employer] Printer Helper Relationship Specialty Start Date End Date Molina De Anda MD [address] [place] [phone] PCP - General Family Medicine 02/21/24 Angel Luis Groves NP [address] [place] [phone] Nurse Practitioner Family Medicine 02/21/24 [employer] Printer Helper Relationship Specialty Start Date End Date Molina De Anda MD [address] [place] [phone] PCP - General Family Medicine 02/21/24 Angel Luis Groves NP [address] [place] [phone] Nurse Practitioner Family Medicine 02/21/24 [employer] Printer Helper Relationship Specialty Start Date End Date Molina De Anda MD [address] [place] [phone] PCP - General Family Medicine 02/21/24 Angel Luis Groves NP [address] [place] [address] Nurse Practitioner Family Medicine 02/21/24 [employer] Printer Helper Relationship Specialty Start Date End Date Molina De Anda MD [address] [place] [phone] PCP - General Family Medicine 02/21/24 Angel Luis Groves NP [address] [place] [phone] Nurse Practitioner Family Medicine 02/21/24 Eunice Dias, [facility] [address] [facility] [place] [phone] Nurse Practitioner Behavioral Health 01/22/25 [employer]inter Helper Relationship Specialty Start Date End Date Molina De Anda MD [address] [place] [phone] PCP - General Family Medicine 02/21/24 Angel Luis Groves NP [address] [place] [phone] Nurse Practitioner Family Medicine 02/21/24 [facility] [address] [place] [phone] Nurse Practitioner Behavioral Health 01/22/25 [employer]inter Helper Relationship Specialty Start Date End Date Molina De Anda MD [address] [place] [phone] PCP - General Family Medicine 02/21/24 Angel Luis Groves NP [address] [place] [phone] Nurse Practitioner Family Medicine 02/21/24 [facility] [address] [place] [phone] Nurse Practitioner Behavioral Health 01/22/25 [employer]inter Helper Relationship Specialty Start Date End Date No Pcp, [place] [id number] PCP - General Family Medicine 11/21/18 [employer]inter Helper Relationship Specialty Start Date End Date Molina De Anda MD [address] [place] [phone] PCP - General Family Medicine 02/21/24 Angel Luis Groves, MARY JO [address] [place] [phone] Nurse Practitioner Family Medicine 02/21/24 Eunice Dias [facility] [address] [facility] [address] [place] [address] Nurse Practitioner Behavioral Health 01/22/25 [employer]inter Helper Relationship Specialty Start Date End Date Molina De Anda MD [address] [place] [phone] PCP - General Family Medicine 02/21/24 Angel Luis Groves NP [address] [place] [phone] Nurse Practitioner Family Medicine 02/21/24 Eunice Dias [facility] [address] [facility] [address] [place] [id number] Nurse Practitioner Behavioral Health 01/22/25 Silk Screen Printer Helper Relationship Specialty Start Date End Date Molina De Anda MD [address] [place] [phone] PCP - General Family Medicine 02/21/24 Angel Luis Groves, MARY JO [address] [place] [phone] Nurse Practitioner Family Medicine 02/21/24 Eunice Dias [facility] [address] [facility] [address] [place] [id number] Nurse Practitioner Behavioral Health 01/22/25 Silk Screen Printer Helper Relationship Specialty Start Date End Date Molina De Anda MD [address] [place] [phone] PCP - General Family Medicine 02/21/24 Angel Luis Groves NP [address] [place] [phone] Nurse Practitioner Family Medicine 02/21/24 [facility] [address] [facility] [address] [place] [phone] Nurse Practitioner Behavioral Health 01/22/25 Silk Screen Printer Helper Relationship Specialty Start Date End Date Molina De Anda MD [address] [place] [phone] PCP - General Family Medicine 02/21/24 Angel Luis Groves NP [address] [place] [phone] Nurse Practitioner Family Medicine 02/21/24 [facility] [address] [facility] [place] [phone] Nurse Practitioner Behavioral Health 01/22/25 Silk Screen Printer Helper Relationship Specialty Start Date End Date No Pcp, [place] [address] PCP - General Family Medicine 11/21/18 Silk Screen Printer Helper Relationship Specialty Start Date End Date Molina De Anda MD [address] [place] [phone] PCP - General Family Medicine 02/21/24 Angel Luis Groves NP [address] [place] [address] Nurse Practitioner Family Medicine 02/21/24 [facility] [address] [facility] [address] [place] [phone] Nurse Practitioner Behavioral Health 01/22/25 Silk Screen Printer Helper Relationship Specialty Start Date End Date Molina De Anda MD [address] [place] [phone] PCP - General [facility] 02/21/24 Angel Luis Groves NP [address] [place] [phone] Nurse Practitioner Family Medicine 02/21/24 [facility] [address] [facility] [place] [phone] Nurse Practitioner Behavioral Health 01/22/25 Silk Screen Printer Helper Relationship Specialty Start Date End Date Molina De Anda MD [address] [place] [phone] PCP - General Family Medicine 02/21/24 Angel Luis Groves, MARY JO [address] [place] [phone] Nurse Practitioner Family Medicine 02/21/24 [facility] [address] [facility] [place] [phone] Nurse Practitioner Behavioral Health 01/22/25 Silk Screen Printer Helper Relationship Specialty Start Date End Date Molina De Anda MD [address] [place] [phone] PCP - General Family Medicine 02/21/24 Angel Luis Groves NP [address] [place] [address] Nurse Practitioner Family Medicine 02/21/24 [facility] [address] [place] [address] [place] [phone] Nurse Practitioner Behavioral Health 01/22/25 Rohan Waters LPC Pigment Presser Behavioral Health 03/06/25 Goals (unrecognized section and [...] BE BASED ON THE PRIMARY CLINICAL RECORDS. [employer] provides no warranty or guarantee of the accuracy or completeness of information in this document.
== END 2025-03-21 15:06 | disposition home or self-care (01) ==
LOC: CT 15:05
PROVIDERS: PCP Nurse Practitioner; Visit Provider Podiatrist Foot & Ankle Surgery
DX: M96.0 Pseudarthrosis after fusion or arthrodesis (principal)
CPT/HCPCS: 73700

== ENCOUNTER 2025-04-17 15:13 | Outpatient (OUT) | payer OTHER, SELFPAY ==
--- OUTSIDE RECORDS SUMMARY | 2025-04-17 15:19 | XMS_ITS | CCD ---
Author Organization [facility] Care Team Providers Care Sanitation Technician Name Role Phone PHYSICIAN, DEFAULT Admitting Unavailable [...] Attending Unavailable MEET, KAJAL Admitting Unavailable MEET, AKJAL Consulting Unavailable HOUSE, DR VILLALOBOS Admitting Unavailable [...] Attending Unavailable MD Tyson Collazo Attending Provider [phone] Tyson Collazo Attending Unavailable Tyson Collazo Admitting Unavailable Molina De Anda MD Primary Care Provider [place]ves AUTOMATIC EDGER, Angel Luis Unavailable [phone] Germain AUTOMATIC EDGER, Angel Luis Unavailable Arun PMHNP-, Eunice Unavailable No Pcp, No Pcp Primary Care Provider UnavailRohan Crooks LPC Unavailable Unavailable Meek WELLER, Flores Gutierrez Attending Unavailable Meek WELLER, Flores Gutierrez Attending Unavailable Shun Arshad MD Attending Provider Pascale Arana Primary Care Provider Molina De Anda MD Primary Care Provider [phone] Germain AUTOMATIC EDGER, Angel Luis Unavailable [phone] SHELIA MUNIZ Attending Unavailable NO PCP, NO PCP Primary Care Unavailable JOVON ASIF Attending Unavailable SHELIA MUNIZ Referring Unavailable PASCALE ARANA Primary Care Unavailable Aichdes BAIL AGENT-SENIOR MEDICAL TECHNOLOGISTPascale Primary Care Provider ANGEL LUIS GROVES Attending Unavailabl e SUMIT, PASCALE Attending Unavailable DERRICKHHOLZ, PASCALE Attending Unavailable SUMIT, PASCALE Attending Unavailable SUMIT, PASCALE Attending Unavailable EUNICE DIAS Attending Unavailable SUMTI, PASCALE Referring Unavailable EUNICE DIAS Attending Unavailable PASCALE ARANA Attending Unavailable ROHAN WATERS Attending Unavailable ROHAN WATERS Attending Unavailable EUNICE DIAS Attending Unavailable ROHAN WATERS Attending Unavailable ANGEL LUIS GROVES Attending UnavailPASCALE Azar Attending Unavailable Allergies Allergy Classification Reported Allergen(s) Allergy Type Date of Onset Reaction(s) Facility (3 sources) penciclovir; Translations: [penciclovir] Drug Allergy [address] [facility] Repository (7 sources) Penicillins; Translations: [PENICILLINS] Drug allergy (disorder) 4 [facility] Repository (20 sources) Penicillin G Drug Allergy 3 Unknown [facility] Healthcare (20 sources) Penicillins Propensity to adverse reactions 3 [facility] Healthcare (3 sources) Penicillins Propensity to adverse reactions to drug 3 [facility] [employer] [facility] Work Phone: Medications Current Medications Medication Drug Class(es) Dates Sig (Normalized) Sig (Original) [id number] 200 actuat albuterol 0.09 mg/actuat metered dose inhaler (20 sources) beta2-Adrenergic Agonist Start: 03-25-2025 Albuterol Sulfate 90 mcg/actuation HFA aerosol inhaler Active INHALATION March 25, 2025 12:00am Complies with drug therapy Start: 02-06-2025 End: 03-08-2025 take 2 puff(s) [...] needed for wheezing 8 g 1 02/06/2025 Active Start: 02-29-2024 End: 01-19-2025 take 2 [...] oral capsule (20 sources) Atypical Antipsychotic Start: 04-03-2025 End: 04-17-2025 take 1 capsule by mouth once daily Cariprazine HCl (Vraylar) 3 MG capsule Indications: JESSIKA (generalized anxiety disorder) , Severe episode of recurrent major depressive disorder, without psychotic features (HCC) , PTSD (post-traumatic stress disorder) Take 3 mg by mouth Daily for 14 days 14 capsule 04/03/2025 04/17/2025 Active Start: 04-03-2025 End: 05-03-2025 take 1 capsule by mouth once daily, then take 3 mg by mouth once daily, then take 1 capsule by mouth once daily Cariprazine HCl (Vraylar) 4.5 MG capsule Indications: JESSIKA (generalized anxiety disorder) , Severe episode of recurrent major depressive disorder, without psychotic features (HCC) , PTSD (post-traumatic stress disorder) Take 4.5 mg by mouth Daily After taking 3 mg dose daily for 14 days, begin taking 4.5 mg daily. 30 capsule 1 04/03/2025 05/03/2025 Active Start: 04-01-2025 End: 04-03-2025 take 1 capsule by mouth once daily Cariprazine HCl (Vraylar) 1.5 MG capsule Indications: Severe episode of recurrent major depressive disorder, without psychotic features (HCC) Take 1 capsule by mouth Daily for 3 days 3 capsule 04/01/2025 04/03/2025 Discontinued Start: 02-24-2025 End: 03-26-2025 take 1 capsule by mouth once daily Cariprazine HCl (Vraylar) 3 MG capsule Indications: Severe episode of recurrent major depressive disorder, without psychotic features (HCC) Take 3 mg by mouth Daily 30 capsule 02/24/2025 Active Start: 01-22-2025 End: 02-24-2025 take 1 capsule by mouth once daily Cariprazine HCl (Vraylar) 1.5 MG capsule Indications: Severe episode of recurrent major depressive disorder, without psychotic features (HCC) Take 1.5 mg by mouth Daily 30 capsule 01/22/2025 02/24/2025 Discontinued cholecalciferol 0.125 mg oral capsule (1 source) Vitamin D Start: 03-25-2025 Cholecalciferol (Vitamin D3) 125 mcg (5,000 unit) capsule Active PO March 25, 2025 12:00am Complies with drug therapy cyclobenzaprine hydrochloride 10 mg oral tablet (17 sources) Muscle Relaxant Start: 01-20-2025 take 1 tablet by mouth three times daily cyclobenzaprine (FLEXERIL) 10 mg tablet Take 1 tablet (10 mg total) by mouth 3 (three) times a day. 01/20/2025 Active Cymbalta 30 mg Cap-DR (2 sources) Start: 05-24-2023 take 1 capsule by mouth once daily Cymbalta 30 mg Cap-DR = 1 cap(s), Oral, Daily, Refills(s) 0 Start Date: 05/24/23 Status: Ordered DULoxetine 30 mg delayed release oral capsule (20 sources) Serotonin and Norepinephrine Reuptake Inhibitor Start: 03-13-2024 End: 07-02-2025 take 1 capsule by mouth at bedtime DULoxetine (Cymbalta) [address] capsule Indications: Fibromyalgia Take 1 capsule (30 mg) by mouth at bedtime 30 capsule 5 04/03/2025 07/02/2025 Active Start: 02-29-2024 End: 05-03-2025 take 1 capsule by mouth once daily in the morning DULoxetine (Cymbalta) [address] capsule Indications: Fibromyalgia Take 1 capsule (60 mg) by mouth Daily in the Morning 30 capsule 5 04/03/2025 05/03/2025 Active Start: 07-03-2023 End: 10-01-2023 take 1 capsule by mouth in the morning DULoxetine (Cymbalta) [address] capsule Indications: Fibromyalgia Take 1 capsule (60 mg) by mouth in the morning. 30 capsule 2 07/03/2023 10/01/2023 Active estradiol 0.1 mg/ml vaginal cream (16 sources) Estrogen Start: 02-06-2025 estradiol (Est race) [...] completed) pregabalin (1 source) Pregabalin Activ e sulfamethoxazole 800 mg / trimethoprim 160 mg [...] 1 capsule by mouth every twenty-four hours Tolterodine 4 mg capsule,extended release 24hr Active MG PO March 25, 2025 12:00am Complies with drug therapy Start: 05-24-2023 End: 02-16-2025 take 1 capsule by mouth once daily tolterodine LA (Detrol LA) 4 MG 24 hr capsule Take 4 mg by mouth Daily 12/21/2024 Active Tolterodine Tart rate ER Active vitamin b12 1 mg/ml injectable solution (19 sources) Vitamin B12 Start: 08-04-2023 inject 1000 [...] bedtime for sleep 30 tablet 2 02/20/2025 Active Start: 02-29-2024 End: 07-25-2024 zolpidem (Ambien) [...] 90 tablet 0 08/28/2023 11/26/2023 Active Citalopram [place] bromide Active hyoscyamine sulfate 0.125 mg oral [...] 01/06/2025 Discontinued (Therapy completed) polyethylene glycol 3350 51211 mg powder for oral solution (9 sources) Osmotic Laxative Start: 02-28-2024 End: 06-09-2024 polyethylene glycol, PEG, 3350 (MiraLax) 17 GM/SCOOP powder Indications: Constipation, unspecified constipation type Take 17 g by mouth Daily 578 g 2 02/28/2024 06/09/2024 sod sulf-pot chloride-mag sulf 1.479-0.188- 0.225 gram tablet (3 sources) Start: 02-13-2023 End: 2025 sod sulf-pot chloride-mag sulf 1.479-0.188- 0.225 gram tablet See instructional sheet given by office. Patient was given a [employer] coupon voucher to use, this is not to be ran through patients insurance. 24 tablet 02/13/2023 2025 Discontinued Start: 02-13-2023 sod sulf-pot c hloride-mag sulf 1.479-0.188- 0.225 gram tablet See instructional sheet given by office. Patient was given a [employer] coupon voucher to use, this is not to be ran through patients insurance. 24 tablet 02/13/2023 Active sucralfate 1000 mg oral tablet (20 sources) [...] 05-24-2023 Chronic Genitourinary symptoms and ill-defined conditions (5 sources) Urge incontinence of urine; Translations: [Urge [...] 2 Chronic Other aftercare (1 source) Other correction (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; Translations: [OTH SYSTEMS ANALYSIS MANAGER CURRENT DRUG THERAPY] Onset: 2 Episodic [...] WITH AUTO DIFFon BASOPHILS ABSOLUTE AUTO 0.1 [facility] Basophils/100 WBC (Bld) 1.2 % 0.2 - 2.0 % [facility] Eosinophils/100 WBC (Bld) 7.9 % High 0.9 - 7.0 % [facility] Erythrocyte distribution width (RBC) [Ratio] 15.3 % High 11.0 - 15.0 % [facility] Hematocrit (Bld) [Volume fraction] 37.2 % 36.0 - 48.0 % [facility] Hemoglobin (Bld) [Mass/Vol] 11.8 g/dL Low 12.0 - 16.0 g/dL [facility] IMMATURE GRANULOCYTES ABS AUTO 0.02 [facility] Immature granulocytes/100 WBC (Bld) 0.3 % 0.0 - 0.5 % [facility] Interpretation and review of laboratory results Abnormal [facility] LYMPHOCYTES ABSOLUTE AUTO 2.3 [facility] Lymphocytes/100 WBC (Bld) 35.2 % 20.5 - 60.0 % [facility] MCH (RBC) [Entitic mass] 31.1 pg 26.7 - 34.0 pg [facility] MCHC (RBC) [Mass/Vol] 31.7 g/dL 29.9 - 35.2 g/dL [facility] MCV (RBC) [Entitic vol] 98.2 fL 81.0 - 99.0 fL [facility] MONOCYTES ABSOLUTE AUTO 0.4 [facility] Monocytes/100 WBC (Bld) 5.5 % 1.7 - 12.0 % [facility] NEUTROPHILS ABSOLUTE AUTO 3.3 [facility] Neutrophils/100 WBC (Bld) 49.9 % 43.0 - 75.0 % [facility] Platelet mean volume (Bld) [Entitic vol] 10 fL 9.5 - 13.5 fL [facility] EO # 0.5 [facility] PLT 255 [facility] TB RBC 3.79 Low [facility] WBC 6.6 [facility] SEGMENTAL BLOOD PRESSUREon 0 02-27-2025 [place] [address] Cardiology Report Signed Patient: TALIA RUTHERFORD MR#: [id number] : 1970 Acct:[id number] Age/Sex: 54 / F ADM Date: 02/26/25 Loc: CARD Attending Dr: Kajal LAZAR Ordering Physician: Kajal Escobedo Date of Service: 02/26/25 Procedure(s): CA segmental UE or LE PONCE Accession Number(s): [id number] cc: Pascale Arana NP; Kajal Escobedo [facility] Test Date: 2025-02-26 Pat Name: TALIA RUTHERFORD Department: Room: - Gender: Female Sonar Technician: Cari Cruz : 1970 Requested By: Kajal Escobedo Order Number: [id number] Garth MD: SCOTT PARKINSON M.D. Interpretive Statements [...] 02/27/25 0907 02/27/25 0907 DD/ 1534 TD/TT: Fnp: [facility] Radiology, Radiologi MD blanche - 02/27/2025 [place] [address] Cardiology Report Signed Patient: TALIA RUTHERFORD MR#: [id number] : 1970 Acct:[id number] Age/Sex: 54 / F ADM Date: 02/26/25 Loc: CARD Attending Dr: Kajal LAZAR Ordering Physician: Kajal Escobedo Date of Service: 02/26/25 Procedure(s): CA segmental UE or LE PONCE Accession Number(s): [id number] cc: Pascale Arana NP; Kajal Escobedo [facility] Test Date: 2025-02-26 Pat Name: TALIA RUTHERFORD Department: Room: - Gender: Female Sonar Technician: Cari Nichole : 1970 Requested By: Kajal Escobedo Order Number: [id number] Reading MD: SCOTT PARKINSON M.D. Interpretive Statements [...] 02/27/25 0907 02/27/25 0907 DD/ 1534 TD/TT: Fnp[facility] SEGMENTAL BLOOD PRESSUREOrde red By: Radiologist Radiology on 02-27-2025 [employer] Work Phone: SEGMENTAL BLOOD PRESSUREon 0 02-26-2025 Radiology Study observation (narrative) [facility] [employer] XR FOOT LT MIN 3Von 02-20-[address] [place], [place] [id number] XRay Report Signed Patient: TALIA RUTHERFORD MR#: [id number] : 1970 Acct:[id number] Age/Sex: 54 / F ADM Date: 02/19/25 Loc: RAD Attending Dr: Kajal LAZAR Ordering Physician: Kajal Escobedo Date of Service: 02/19/25 Procedure(s): XR foot LT min 3V Accession Number(s): [id number] cc: Pascale Arana AUTOMATIC EDGER; Kajal Escobedo [address] [address] Patient Name: TALIA RUTHERFORD MRN: [facility]:[id number] date: 1970 Sex: F Assigned Patient Location: [facility] Current Patient Location: [facility] Accession/Order Number: [id number] Exam Date: 02/19/2025 10:39 Report Date: 02/19/2025 [...] Jr., D.O. 02/19/2025 3:03 PM Dictation Location: [place] [address] Electronically authenticated by: [id number] Y Date: 02/19/2025 15:03 Dictated By: Mrelin Massey M.D. Signed By: 02/19/25 1506 DD/ 1503 TD/TT: Fnp: [facility] Radiology Radiolograndall mancia MD - 02/19/[address] [address] XRay Report Signed Patient: TALIA RUTHERFORD MR#: [id number] : 1970 Acct:[id number] Age/Sex: 54 / F ADM Date: 02/19/25 Loc: KAI Attending Dr: Kajal LAZAR Ordering Physician: Kajal Escobedo Date of Service: 02/19/25 Procedure(s): XR foot LT min 3V Accession Number(s): [id number] cc: Pascale Arana NP; Kajal Escobedo The [address] [id number] Patient Name: TALIA RUTHERFORD MRN: [id number]:[id number] date: 1970 Sex: F Assigned Patient Location: [facility] Current Patient Location: [facility] Accession/Order Number: [id number] Exam Date: 02/19/2025 10:39 Report Date: 02/19/2025 [...] Jr. DConsueloOConsuelo 02/19/2025 3:03 PM Dictation Location: [place] [address] Electronically authenticated by: [id number] Y Date: 02/19/2025 15:03 Dictated By: Merlin Massey M.D. Signed By: 02/19/25 1506 DD/ 1503 TD/TT: Fnp: [facility] Radiology Study observation (narrative) [facility] XR FOOT LT MIN 3VOrdered By: Radiologist Radiology on 02-19-2025 [facility] Work Phone: MR Cervical spine WO contras ton 02-05-2025 [place] [address] Magnetic Resonance Report Signed Patient: TALIA RUTHERFORD MR#: [id number] : 1970 Acct:[id number] Age/Sex: 54 / F ADM Date: 02/04/25 Loc: MRI Attending Dr: Flores Eden M.D. Ordering Physician: Flores Eden M.D. Date of Service: 02/04/25 Procedure(s): MR cervical spine wo con Accession Number(s): [id number] cc: Pascale Arana AUTOMATIC EDGER; Flores Eden M.D. [place] [id number] Patient Name: TALIA RUTHERFORD MRN: [facility]:[id number] date: 1970 Sex: F Assigned Patient Location: MRI Current Patient Location: Accession/Order Number: [id number] Exam Date: 02/05/2025 12:10 Report Date: 02/05/2025 [...] Uncovertebral spurring greatest right. Moderate right and rbtb-pd-pqxirfca left-sided neural foraminal narrowing. Mild canal narrowing. C5-6: Broad-based disc bulge with uncovertebral spurring, greatest left. Moderate right-sided moderate to severe left-sided neural foraminal narrowing. Mild central canal stenosis. C6-C7: Broad-based disc osteophyte complex with uncovertebral spurring. Ypko-nv-gvhcteop right moderate severe left neural foraminal narrowing. Kwtl-jc-sbiltxtp canal narrowing. C7-T1: Minimal vertebral hypertrophy. Moderate facet arthropathy. Canal and patent. Mild foraminal narrowing. MR/MR cervical spine wo con IMPRESSION: Overall multilevel degenerative changes with up to vclw-gh-kpbwsjeg central canal narrowing. Multilevel foraminal encroachment as noted above. Impression dictated by: Mushtaq Antony M.D. 02/05/2025 12:16 PM Dictation Location: [place] [address] Electronically authenticated by: [id number] Y Date: 02/05/2025 12:16 Dictated By: Mushtaq Antony M.D. Signed By: 02/05/25 1218 DD/ 1216 TD/TT: Fnp: [facility] Radiology, Radiolograndall mancia MD - 02/05/2025 [place] [address] Magnetic Resonance Report Signed Patient: TALIA RUTHERFORD MR#: [id number] : 1970 Acct:[id number] Age/Sex: 54 / F ADM Date: 02/04/25 Loc: MRI Attending Dr: Flores Eden M.D. Ordering Physician: Flores Eden M.D. Date of Service: 02/04/25 Procedure(s): MR cervical spine wo con Accession Number(s): [id number] cc: Pascale Arana AUTOMATIC EDGER; Flores Eden M.D. The [place] [address] Patient Name: TALIA RUTHERFORD MRN: [facility]:[id number] date: 1970 Sex: F Assigned Patient Location: MRI Current Patient Location: Accession/Order Number: [id number] Exam Date: 02/05/2025 12:10 Report Date: 02/05/2025 [...] Uncovertebral spurring greatest right. Moderate right and sogy-de-lspssssd left-sided neural foraminal narrowing. Mild canal narrowing. C5-6: Broad-based disc bulge with uncovertebral spurring, greatest left. Moderate right-sided moderate to severe left-sided neural foraminal narrowing. Mild central canal stenosis. C6-C7: Broad-based disc osteophyte complex with uncovertebral spurring. Mygs-ei-aljbtyqh right moderate severe left neural foraminal narrowing. Whnm-vz-wcloqhbi canal narrowing. C7-T1: Minimal vertebral hypertrophy. Moderate facet arthropathy. Canal and patent. Mild foraminal narrowing. MR/MR cervical spine wo con IMPRESSION: Overall multilevel degenerative changes with up to hvpu-hf-saibdxnh central canal narrowing. Multilevel foraminal encroachment as noted above. Impression dictated by: Mushtaq Antony M.D. 02/05/2025 12:16 PM Dictation Location: [place] [address] Electronically authenticated by: [id number] Y Date: 02/05/2025 12:16 Dictated By: Mushtaq Antony M.D. Signed By: 02/05/25 1218 DD/ 1216 TD/TT: Fnp: [facility] Radiology Study observation (narrative) [facility] MR Cervical spine WO contras tOrdered By: Radiologist Radiology on 02-05-2025 [facility] Work Phone: [place] [address] Magnetic Resonance Report Signed Patient: TALIA RUTHERFORD MR#: [id number] : 1970 Acct:[id number] Age/Sex: 54 / F ADM Date: 02/04/25 Loc: MRI Attending Dr: Flores Eden M.D. Ordering Physician: Flores Eden M.D. Date of Service: 02/04/25 Procedure(s): MR lumbar spine wo con Accession Number(s): [id number] cc: Pascale Arana AUTOMATIC EDGER; Flores Eden M.D. [place] [id number] Patient Name: TALIA RUTHERFORD MRN: [facility]:[id number] date: 1970 Sex: F Assigned Patient Location: MRI Current Patient Location: Accession/Order Number: [id number] Exam Date: 02/05/2025 12:16 Report Date: 02/05/2025 [...] Circumferential disc bulge with moderate facet arthropathy. Bdzh-yn-ntzbppvg right-sided and mild left-sided neural foraminal narrowing . 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 Impression dictated by: Mushtaq Antony M.D. 02/05/2025 2:18 PM Dictation Location: [place] [address] Electronically authenticated by: [id number] Y Date: 02/05/2025 14:18 Dictated By: Mushtaq Antony M.D. Signed By: 02/05/25 1421 DD/ 1418 TD/TT: Fnp: [facility] Radiology, Radiolograndall mancia MD - 02/05/2025 [place] [address] Magnetic Resonance Report Signed Patient: TALIA RUTHERFORD MR#: [id number] : 1970 Acct:[id number] Age/Sex: 54 / F ADM Date: 02/04/25 Loc: MRI Attending Dr: Flores Eden M.D. Ordering Physician: Flores Eden M.D. Date of Service: 02/04/25 Procedure(s): MR lumbar spine wo con Accession Number(s): [id number] cc: Pascale Arana NP; Flores Eden M.D. The [address] [address] Patient Name: TALIA RUTHERFORD MRN: [facility]:[id number] date: 1970 Sex: F Assigned Patient Location: MRI Current Patient Location: Accession/Order Number: [id number] Exam Date: 02/05/2025 12:16 Report Date: 02/05/2025 [...] Circumferential disc bulge with moderate facet arthropathy. Lrbo-eg-lovegznp right-sided and mild left-sided neural foraminal narrowing . 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 Impression dictated by: Mushtaq Antony M.D. 02/05/2025 2:18 PM Dictation Location: [place] [address] Electronically authenticated by: [id number] Y Date: 02/05/2025 14:18 Dictated By: Mushtaq Antony M.D. Signed By: 02/05/25 1421 DD/ 1418 TD/TT: Fnp: [facility] Radiology Study observation (narrative) [facility] MR LUMBAR SPINE WO CONOrdere d By: Radiologist Radiology on 02-05-2025 [facility] Work Phone: ALL CBC WITH AUTO DIFFon BASOPHILS ABSOLUTE AUTO 0.1 [facility] Basophils/100 WBC (Bld) 1 % 0.2 - 2.0 % [facility] Eosinophils/100 WBC (Bld) 6.9 % 0.9 - 7.0 % [facility] Erythrocyte distribution width (RBC) [Ratio] 15.6 % High 11.0 - 15.0 % [facility] Hematocrit (Bld) [Volume fraction] 36.2 % 36.0 - 48.0 % [facility] Hemoglobin (Bld) [Mass/Vol] 11.8 g/dL Low 12.0 - 16.0 g/dL [facility] IMMATURE GRANULOCYTES ABS AUTO 0.01 [facility] Immature granulocytes/100 WBC (Bld) 0.2 % 0.0 - 0.5 % [facility] Interpretation and review of laboratory results Abnormal [facility] LYMPHOCYTES ABSOLUTE AUTO 1.9 [facility] Lymphocytes/100 WBC (Bld) 32 % 20.5 - 60.0 % [facility] MCH (RBC) [Entitic mass] 28.6 pg 26.7 - 34.0 pg [facility] MCHC (RBC) [Mass/Vol] 32.6 g/dL 29.9 - 35.2 g/dL [facility] MCV (RBC) [Entitic vol] 87.9 fL 81.0 - 99.0 fL [facility] MONOCYTES ABSOLUTE AUTO 0.3 [facility] Monocytes/100 WBC (Bld) 5.4 % 1.7 - 12.0 % [facility] NEUTROPHILS ABSOLUTE AUTO 3.3 [facility] Neutrophils/100 WBC (Bld) 54.5 % 43.0 - 75.0 % [facility] Platelet mean volume (Bld) [Entitic vol] 9.6 fL 9.5 - 13.5 fL [facility] TBH EO # 0.4 [facility] PLT 273 [facility] RBC 4.12 Low [facility] WBC 6.1 [facility] IGP,APTIMA HPV,AGE GDLNon AGE GDLN ACOG TESTING Note . [facility] Comment on above: TESTS RESULT FLAG UN ITS REF RANGE LAB Clinician Provided Cytology Information Source.............Cervix;Endocervix No. of containers..01 ThinPrep Vial Age Algo ACOG Fiorella... 30-65 01 FLAG LEGEND: L-Low Normal,H-High Normal,LL-Alert Low,HH-Alert High <-Panic Low,>-Panic High,A-Abnormal,AA-Critical Abnormal Performed at: 01 =G [address] [place] [address] Monika Norton MD, HPV APTIMA Positive Abnormal Negative [facility] Comment on above: This nucleic acid am plification test detects fourteen high- risk HPV types (16,18,31,33,35,39,45,51,52,56,58,59,66,68) without differentiation. HPV GENOTYPE 16 Negative Negative [facility] HPV GENOTYPE 18,45 Negative Negative [facility] Comment on above: Performed at: =G - L [facility] [address] [id number] Technical Specialist Cytology: Monika Norton MD, Phone: [phone] Performed at: - [facility] [id number] Technical Specialist Cytology: Monika Norton MD, Phone: [phone] IGP, APTIMA HPV, RFX 16/18,45 Note . [facility] Comment on above: TESTS RESULT FLAG UN ITS REF RANGE LAB DIAGNOSIS: 02 NEGATIVE FOR INTRAEPITHELIAL LESION OR MALIGNANCY. Specimen adequacy: 02 Satisfactory for evaluation. Endocervical and/or squamous metaplastic cells (endocervical component) are present. Performed by: Suresh Guerrero, Trust Administrator . 02 Note: Note 02 The Pap [...] Low,>-Panic High,A-Abnormal,AA-Critical Abnormal Performed at: [address] [facility] [address] Monika Norton MD, Interpretation and review of laboratory results Abnormal [facility] BRUSH-ALONE CERVIX ENDOCERVIX [facility] MM TOMOSYNTHESIS SCREENING B Ion 10-23-2024 [place] [address] Mammography Report Signed Patient: TALIA RUTHERFORD MR#: [id number] : 1970 Acct:[id number] Age/Sex: 54 / F ADM Date: 10/23/24 Loc: MAMMO Attending Dr: Pascale Arana NP Ordering Physician: Pascale Arana NP Results: Date of Service: 10/23/24 Follow Up: Procedure(s): MM tomosynthesis screening BI Accession Number(s): [id number] cc: Pascale Arana NP Patient Name: TALIA RUTHERFORD MR#: [id number] : 1970 Exam Date: 10/23/2024 Ordering Doctor: [...] breast cancer at age 51. LOCATION: [facility] BREAST COMPOSITION: There are scattered areas [...] Signed By: 10/23/24 1555 DD/ 54 TD/TT: Fnp: [facility] Radiology, Radiolograndall mancia MD - 10/23/2024 [place] [address] Mammography Report Signed Patient: TALIA RUTHERFORD MR#: [id number] : 1970 Acct:[id number] Age/Sex: 54 / F ADM Date: 10/23/24 Loc: MAMMO Attending Dr: Pascale Arana NP Ordering Physician: Pascale Arana NP Results: Date of Service: 10/23/24 Follow Up: Procedure(s): MM tomosynthesis screening BI Accession Number(s): [id number] cc: Pascale Arana NP Patient Name: TALIA RUTHERFORD MR#: [id number] : 1970 Exam Date: 10/23/2024 Ordering Doctor: [...] breast cancer at age 51. LOCATION: [facility] BREAST COMPOSITION: There are scattered areas [...] M.D. Signed By: 10/23/241554 DD/ 54 TD/TT: Fnp: [facility] Radiology Study observation (narrative) [facility] MM TOMOSYNTHESIS SCREENING B IOrdered By: Radiologist Radiology on 10-23-2024 [facility] Work Phone: ALL CBC WITH AUTO DIFFon BASOPHILS ABSOLUTE AUTO 0 [facility] Basophils/100 WBC (Bld) 0.8 % 0.2 - 2.0 % [facility] Eosinophils/100 WBC (Bld) 3.9 % 0.9 - 7.0 % [facility] Erythrocyte distribution width (RBC) [Ratio] 14.2 % 11.0 - 15.0 % [facility] Hematocrit (Bld) [Volume fraction] 32.9 % Low 36.0 - 48.0 % [facility] Hemoglobin (Bld) [Mass/Vol] 10.6 g/dL Low 12.0 - 16.0 g/dL [facility] IMMATURE GRANULOCYTES ABS AUTO 0 [facility] Immature granulocytes/100 WBC (Bld) 0 % 0.0 - 0.5 % [facility] Interpretation and review of laboratory results Abnormal [facility] LYMPHOCYTES ABSOLUTE AUTO 1.6 [facility] Lymphocytes/100 WBC (Bld) 31.7 % 20.5 - 60.0 % [facility] MCH (RBC) [Entitic mass] 29.5 pg 26.7 - 34.0 pg [facility] MCHC (RBC) [Mass/Vol] 32.2 g/dL 29.9 - 35.2 g/dL [facility] MCV (RBC) [Entitic vol] 91.6 fL 81.0 - 99.0 fL [facility] MONOCYTES ABSOLUTE AUTO 0.4 [facility] Monocytes/100 WBC (Bld) 7.2 % 1.7 - 12.0 % [facility] NEUTROPHILS ABSOLUTE AUTO 2.8 [facility] Neutrophils/100 WBC (Bld) 56.4 % 43.0 - 75.0 % [facility] Platelet mean volume (Bld) [Entitic vol] 10.5 fL 9.5 - 13.5 fL [facility] EO # 0.2 [facility] PLT 199 [facility] RBC 3.59 Low [facility] WBC 4.9 [facility] CT FOOT LT WO CONon 09-09-[address] [address] [address] Scan Report Signed Patient: TALIA RUTHERFORD MR#: [id number] : 1970 Acct:[id number] Age/Sex: 54 / F ADM Date: 09/09/24 Loc: CT Attending Dr: Tawana Foster D.P.M. Ordering Physician: Tawana Foster D.P.M. Date of Service: 09/09/24 Procedure(s): CT foot LT wo con Accession Number(s): [id number] cc: ANGEL LUIS GROVES [place] [address] Patient Name: TALIA RUTHERFORD MRN: [facility]:[id number] date: 1970 Sex: F Assigned Patient Location: CT Current Patient Location: CT Accession/Order Number: [id number] Exam Date: 09/09/2024 15:56 Report Date: 09/09/2024 [...] Signed By: 09/09/24 1742 DD/ 1739 TD/TT: Fnp: [facility] Lisa Hong MD - 09/09/[address] [address] [address] Scan Report Signed Patient: TALIA RUTHERFORD MR#: [id number] : 1970 Acct:[id number] Age/Sex: 54 / F ADM Date: 09/09/24 Loc: CT Attending Dr: Tawana Foster D.P.M. Ordering Physician: Tawana Foster D.P.M. Date of Service: 09/09/24 Procedure(s): CT foot LT wo con Accession Number(s): [id number] cc: ANGEL LUIS GROVES [place] [address] Patient Name: TALIA RUTHERFORD MRN: [facility]:[id number] date: 1970 Sex: F Assigned Patient Location: CT Current Patient Location: CT Accession/Order Number: [id number] Exam Date: 09/09/2024 15:56 Report Date: 09/09/2024 [...] Signed By: 09/09/24 174 DD/ 173 TD/TT: Fnp: [facility] Radiology Study observation (narrative) [facility] CT FOOT LT WO CONOrdered By: Radiologist Radiology on 09-09-2024 [facility] Work Phone: XR FOOT LT MIN 3Von 09-05-19 [place] [address] XRay Report Signed Patient: TALIA RUTHERFORD MR#: [id number] : 1970 Acct:[id number] Age/Sex: 54 / F ADM Date: 09/04/24 Loc: EC Attending Dr: Tawana Foster D.P.M. Ordering Physician: Tawana Foster D.P.M. Date of Service: 09/04/24 Procedure(s): XR foot LT min 3V Accession Number(s): [id number] cc: NASH GROVES Peter D.P.M. [place] [address] Patient Name: TALIA RUTHERFORD MRN: [facility]:[id number] date: 1970 Sex: F Assigned Patient Location: Current Patient Location: Accession/Order Number: [id number] Exam Date: 09/04/2024 15:53 Report Date: 09/05/2024 [...] Signed By: 09/05/24 1019 DD/ 1016 TD/TT: Fnp: [facility] Radiology, Radiologi MD blanche - 09/05/2024 [place] [address] XRay Report Signed Patient: TALIA RUTHERFORD MR#: [id number] : 1970 Acct:[id number] Age/Sex: 54 / F ADM Date: 09/04/24 Loc: EC Attending Dr: Tawana Foster D.P.M. Ordering Physician: Tawana Foster D.P.M. Date of Service: 09/04/24 Procedure(s): XR foot LT min 3V Accession Number(s): [id number] cc: NASH GROVES Peter D.P.M. The [place] [address] Patient Name: TALIA RUTHERFORD MRN: [facility]:[id number] date: 1970 Sex: F Assigned Patient Location: Current Patient Location: Accession/Order Number: [id number] Exam Date: 09/04/2024 15:53 Report Date: 09/05/2024 [...] Signed By: 09/05/24 1019 DD/ 1016 TD/TT: Fnp: [facility] Radiology Study observation (narrative) [facility] XR FOOT LT MIN 3VOrdered By: Radiologist Radiology on 09-05-2024 [facility] Work Phone: CHRONIC WOUND/ULCER (HTRX)on 08-14-2024 [...] (GROUP A STREP) (CHRONIC WOUND/ULCER) Not detected [facility] VARICELLA ZOSTER VIRUS (HUMAN HERPESVIRUS 3) (CHRONIC WOUND/ULCER) 0 [facility] VARICELLA ZOSTER VIRUS (HUMAN HERPESVIRUS 3) (CHRONIC WOUND/ULCER) Not detected [facility] VIBRIO CHOLERAE, PARAHAEMOLYTICUS, VULNIFICUS (CHRONIC WOUND/ULCER) 0 [facility] VIBRIO CHOLERAE, PARAHAEMOLYTICUS, VULNIFICUS (CHRONIC WOUND/ULCER) Not detected [facility] ALL CBC WITH AUTO DIFFon BASOPHILS ABSOLUTE AUTO 0 [facility] Basophils/100 WBC (Bld) 0.6 % 0.2 - 2.0 % [facility] Eosinophils/100 WBC (Bld) 0 % Low 0.9 - 7.0 % [facility] Erythrocyte distribution width (RBC) [Ratio] 13.6 % 11.0 - 15.0 % [facility] Hematocrit (Bld) [Volume fraction] 37.4 % 36.0 - 48.0 % [facility] Hemoglobin (Bld) [Mass/Vol] 12.1 g/dL 12.0 - 16.0 g/dL [facility] IMMATURE GRANULOCYTES ABS AUTO 0.01 [facility] Immature granulocytes/100 WBC (Bld) 0.2 % 0.0 - 0.5 % [facility] Interpretation and review of laboratory results Abnormal [facility] LYMPHOCYTES ABSOLUTE AUTO 1.1 Low [facility] Lymphocytes/100 WBC (Bld) 19.9 % Low 20.5 - 60.0 % [facility] MCH (RBC) [Entitic mass] 29.4 pg 26.7 - 34.0 pg [facility] MCHC (RBC) [Mass/Vol] 32.4 g/dL 29.9 - 35.2 g/dL [facility] MCV (RBC) [Entitic vol] 91 fL 81.0 - 99.0 fL [facility] MONOCYTES ABSOLUTE AUTO 0.2 Low [facility] Monocytes/100 WBC (Bld) 4.2 % 1.7 - 12.0 % [facility] NEUTROPHILS ABSOLUTE AUTO 4.1 [facility] Neutrophils/100 WBC (Bld) 75.1 % High 43.0 - 75.0 % [facility] Platelet mean volume (Bld) [Entitic vol] 9.7 fL 9.5 - 13.5 fL [facility] EO # 0 [facility] PLT 256 [facility] RBC 4.11 Low [facility] WBC 5.4 [facility] SS-A/Ro Sjogrens Antibodyon 04-18-2024 SS-A/Ro Sjogrens Antibody <0.2 Normal 0.0-0.9 [facility] Comment on above: Performed By: #### S SB, SSA #### [facility] , SS-B/La Sjogrens Antibodyon 04-18-2024 SS-B/La Sjogrens Antibody <0.2 Normal 0.0-0.9 [facility] Comment on above: Result Comment: Perf ormed at: CB - [facility] [address] [id number] Technical Specialist Cytology: Hector Franco PhD, Phone: [phone] PERFORMED BY: [address] [place] [address] PATHOLOGIST SHOP TAILOR LEAH SANFORD M.D. Performed By: #### S SB, [facility] #### [facility] , Ambulatory Visit Summaryon 0 [...] choosing us for your care. Ezequiel Conrad [facility] Gastroenterology Office/Clin ic Noteon 03-18-2024 [...] inactivated - Not Given Patient Refuses Normal [facility] Comment on above: Result Comment: Elec tronically Signed By: Jelani WELLER, Ron Valdovinos.br\Date and Time Signed: 03/18/24 15:21 EDT Outside Colonoscopyon 2023 Outside Colonoscopy [id number]#1.00TIFF [facility] Reminderson 07-20-2023 Reminders - From: Machelle Arauz LPN To: N - Clinical; Sent: 07/20/2023 10:55:11 EST Show up: 06/19/2033 07:00:00 EST Subject: colonoscopy recall Due Date/Time: 07/19/2033 07:00:00 EST Reminder/Recall Patient due for screening colonoscopy 07/19/2033. [facility] Lab Reportson 06-26-2023 Lab Reports [id number]#1.00TIFF [facility] Insurance Correspondenceon 08-09-2022 Insurance Correspondence [id number]#1.00TIFF [facility] Facesheeton 06-08-2023 Facesheet [id number]#1.00TIFF [facility] Physician Referralon 023 Physician Referral [id number]#1.00TIFF Normal [facility] Ambulatory Visit Summaryon 1 08-07-2022 [...] [facility] Lab Reportson 05-31-2023 Lab Reports [id number]#1.00TIFF Normal [facility] Consultation Noteon 05-25-20 23 Consultation Note [id number]#1.00TIFF Normal [facility] Physician Referralon 023 Physician Referral [id number]#1.00TIFF Normal [facility] Office Visiton 04-07-2023 Follow-up visit [id number] Norma Rutherford 1970 Date Provider Department Center 04/07/2023 CAROL MOYA Family History Problem Relation Age of Onset Brain Aneurysm Mother 80 Diabetes Mother Heart failure Father 80 Diabetes Father Hypertension Father Diabetes Sister Family Status - Relation Status Age at Mother Father Sister Level of Service:39296 PA OFFICE/OUTPATIENT ESTABLISHED MOD MDM 30-39 MIN Normal [facility] 36on 02-08-2023 36 [facility] lab called to re port critical HGB and hematocrit for patient: HGB was 5.1 and hematocrit is 18.9. I spoke with Talia and advised she go to the ED. She verbalized understanding and will do so. Normal [facility] Office Visiton 02-08-2023 Follow-up visit [id number] Norma Rutherford 1970 Provider Department Center 02/08/2023 CAROL MOYA Family History Problem Relation Age of Onset Brain Aneurysm Mother 80 Diabetes Mother Heart failure Father 80 Diabetes Father Hypertension Father Diabetes Sister Family Status - Relation Status Age at Mother Father Sister Level of Service:75806 PA OFFICE/OUTPATIENT NEW MODERATE MDM 45-59 MINUTES Reason for Visit and Comments: Establish Care [42] - Swelling in both legs,right leg is itching and painful Shortness of Breath [693949] Dizziness [122046] Fatigue [46] Normal [facility] PREG HCG QUALon 03-10-2022 , QUAL Negative Normal NEGATIVE [facility] Comment on above: Performed By: #### P REG ####[facility] [address] [place] [id number]. Moni Johnson Covid-19 PCR (CVDTB)on 02-21 SARS-CoV-2 (COVID-19) RNA EMMANUEL+probe Ql (Unsp spec) Not detected Normal NOT DETECTED [facility] Comment on above: Result Comment: This test is not yet approved or cleared by the [place] FDA. When there are no FDA-approved or cleared tests available, and other criteria are met, FDA can make tests available under an emergency access mechanism called an Emergency Use Authorization (EUA). The EUA for this test is supported by the Acting Section Chief of Health and Human Service's (HHS's) declaration [...] SARS-CoV-2. Performed By: #### C VDTB #### [facility] [address] [place] [address] [address] Moni Johnson PROF CHEM 8 (BAS METB)on Anion gap [Moles/Vol] 9.0 mmol/L Normal [facility] Comment on above: Performed By: #### B MP ####[facility] [address] [place], [place] [address]VtDr. Moni Johnson Calcium [Mass/Vol] 8.3 mg/dL Critically low 8.5-10.1 [facility] Comment on above: Performed By: #### B MP ####[facility] [address] [place] [id number]. Moni Johnson Chloride [Moles/Vol] 106 mmol/L Normal 98-107 [facility] Comment on above: Performed By: #### B MP ####[facility] [address] [place] [address]Dr. Moni Johnson CO2 [Moles/Vol] 29.2 mmol/L Normal 21.0-32.0 [facility] Comment on above: Performed By: #### B MP ####[facility] [address] [place] [address]Dr. Moni Johnson Creatinine [Mass/Vol] 0.78 mg/dL Normal 0.55-1.02 [facility] Comment on above: Performed By: #### B MP ####[facility] [address] [place], [place] [address]Dr. Moni Johnson EGFR-AF ROMANIAN >60 Normal >=60 [facility] Comment on above: Performed By: #### B MP ####[facility] [address] [place], [place] [address]Dr. Angelinemaria a Alex EGFR-NON AF ROMANIAN >60 Normal >=60 [facility] Comment on above: Performed By: #### B MP ####[facility] [address] [place], [place] [address]Dr. Moni Johnson Glucose [Mass/Vol] 88 mg/dL Normal 74-106 [facility] Comment on above: Performed By: #### B MP ####[facility] [address] [place], [place] [address]Dr. Moni Johnson Potassium [Moles/Vol] 4.2 mmol/L Normal 3.5-5.1 [facility] Comment on above: Performed By: #### B MP ####[facility] [address] [place], [place] [address]Dr. Moni Johnson Sodium [Moles/Vol] 140 mmol/L Normal 136-145 [facility] Comment on above: Performed By: #### B MP ####[facility] [address] [place], [place] [address]Dr. Angelinemaria a Johnson Urea nitrogen [Mass/Vol] 21.0 mg/dL Critically high 7.0-18.0 [facility] Comment on above: Performed By: #### B MP ####[facility] [address] [place], [place] [address]Bn. Moni Johnson Urea nitrogen/Creatinine [Mass ratio] 26.9 mg/mg Normal [facility] Comment on above: Performed By: #### B MP ####[facility] [address] [place], [place] [address]Rv. Moni Johnson CT FOOT LT WO CONon [...] ELLIOT JOSE Date: 2022-02-22 18:32 Normal [facility] COVID Quick Testingon 2021 Result Negative [facility] Other Quick Fluon 08-30-2021 FLUAV Ab CF (S) [Titer] Negative [employer] Other FLUBV Ab CF (S) [Titer] Negative [facility] Other Covid-19 PCR ([facility])on 05-24 SARS-CoV-2 (COVID-19) RNA EMMANUEL+probe Ql (Unsp spec) Not detected Normal NOT DETECTED [facility] Comment on above: Result Comment: This test is not yet approved or cleared by the [place] FDA. When there are no FDA-approved or cleared tests available, and other criteria are met, FDA can make tests available under an emergency access mechanism called an Emergency Use Authorization (EUA). The EUA for this test is supported by the [place] of Health and Human Service's (HHS's) declaration [...] consistent with SARS-CoV-2. Performed By: #### C [facility] #### [facility] [address] [place] [address] Dr. Moni Johnson Vital Signs Date Time Vital Sign Value Performing Clinician Facility 04-02-2025 14:57-0400 Body height 166.4 cm Jovon Asif MD Work Phone: [facility] 04-02-2025 14:57-0400 Body mass index (BMI) [Ratio] 28.94 kg/m2 Jovon Asif MD Work Phone: [facility] 04-02-2025 14:57-0400 Body weight 80.11 kg Jovon Asif MD Work Phone: [facility] 04-02-2025 14:57-0400 Diastolic blood pressure 64 mm[Hg] Jovon Asif MD Work Phone: [facility] 04-02-2025 14:57-0400 Heart rate 83 /min Jovon Asif MD Work Phone: [facility] 04-02-2025 14:57-0400 Systolic blood pressure 98 mm[Hg] Jovon Asif MD Work Phone: [facility] 03-25-2025 08:37-0400 Body height 165.1 cm Pascale Arana Work Phone: [facility] 03-25-2025 08:37-0400 Body mass index (BMI) [Ratio] 29.2 kg/m2 Pascale Herreraz Work Phone: [facility] 03-25-2025 08:37-0400 Body weight 79.6 kg Pascale Lastholz Work Phone: [facility] 02-25-2025 11:31-0400 Body mass index (BMI) [Ratio] 28.76 kg/m2 Pascale Herreraz AUTOMATIC EDGER Work Phone: [facility] 02-25-2025 11:31-0400 Body temperature 97.81 [degF] Pascale Herreraz AUTOMATIC EDGER Work Phone: [facility] 02-25-2025 11:31-0400 Body weight 78.38 kg Pascale Lastholz AUTOMATIC EDGER Work Phone: [facility] 02-25-2025 11:31-0400 Diastolic blood pressure 64 mm[Hg] Pascale Herreraz AUTOMATIC EDGER Work Phone: [facility] 02-25-2025 11:31-0400 Heart rate 99 /min Pascaleeric Herreraz AUTOMATIC EDGER Work Phone: [facility] 02-25-2025 11:31-0400 SaO2% (BldA) [Mass fraction] 97 % Pascaleeric Herreraz AUTOMATIC EDGER Work Phone: [facility] 02-25-2025 11:31-0400 Systolic blood pressure 102 mm[Hg] Pascale Herreraz AUTOMATIC EDGER Work Phone: [facility] 02-24-2025 15:01-0400 Body mass index (BMI) [Ratio] 28.79 kg/m2 Eunice Dias PMHNP-BC Work Phone: [facility] 02-24-2025 15:01-0400 Body weight 78.47 kg Eunice Dias PMHNP-BC Work Phone: [facility] 02-24-2025 15:01-0400 Diastolic blood pressure 62 mm[Hg] Eunice Dias PMHNP-BC Work Phone: [facility] 02-24-2025 15:01-0400 Heart rate 88 /min Eunice Dias PMHNP-BC Work Phone: [facility] 02-24-2025 15:01-0400 Systolic blood pressure 102 mm[Hg] Eunice Dias PMHNP-BC Work Phone: [facility] 02-06-2025 14:23-0400 Body height 166.4 cm Shelia Muniz DO Work Phone: [facility] 02-06-2025 14:23-0400 Body mass index (BMI) [Ratio] 28.51 kg/m2 Shelia Muniz DO Work Phone: [facility] 02-06-2025 14:23-0400 Body weight 78.93 kg Shelia Muniz DO Work Phone: [facility] 02-06-2025 14:23-0400 Diastolic blood pressure 80 mm[Hg] Shelia Muniz DO Work Phone: [facility] 02-06-2025 14:23-0400 Systolic blood pressure 108 mm[Hg] Shelia Muniz DO Work Phone: [facility] 01-22-2025 09:04-0400 Body mass index (BMI) [Ratio] 29.62 kg/m2 Eunice Dias PMHNP-BC Work Phone: [facility] 01-22-2025 09:04-0400 Body weight 80.74 kg Eunice Dias PMHNP-BC Work Phone: [facility] 01-22-2025 09:04-0400 Diastolic blood pressure 68 mm[Hg] Eunice Dias PMHNP-BC Work Phone: [facility] 01-22-2025 09:04-0400 Heart rate 78 /min Eunice Dias PMHNP-BC Work Phone: [facility] 01-22-2025 09:04-0400 Systolic blood pressure 112 mm[Hg] Eunice Dias PMHNP-BC Work Phone: [facility] 01-06-2025 16:32-0400 Body mass index (BMI) [Ratio] 29.99 kg/m2 Pascale Shlaaholz AUTOMATIC EDGER Work Phone: [facility] 01-06-2025 16:32-0400 Body temperature 98.01 [degF] Pascale Aichholz AUTOMATIC EDGER Work Phone: [facility] 01-06-2025 16:32-0400 Body weight 81.74 kg Pascale Aichholz AUTOMATIC EDGER Work Phone: [facility] 01-06-2025 16:32-0400 Diastolic blood pressure 60 mm[Hg] Pascale Aichholz AUTOMATIC EDGER Work Phone: [facility] 01-06-2025 16:32-0400 Heart rate 82 /min Pascale Aichholz AUTOMATIC EDGER Work Phone: [facility] 01-06-2025 16:32-0400 Respiratory rate 18 /min Pascale Aichholz AUTOMATIC EDGER Work Phone: [facility] 01-06-2025 16:32-0400 SaO2% (BldA) [Mass fraction] 98 % Pascale Aichholz AUTOMATIC EDGER Work Phone: [facility] 01-06-2025 16:32-0400 Systolic blood pressure 110 mm[Hg] Pascale Aichholz AUTOMATIC EDGER Work Phone: [facility] 11-20-2024 15:30-0400 Body mass index (BMI) [Ratio] 32.48 kg/m2 Pascale Aichholz AUTOMATIC EDGER Work Phone: [facility] 11-20-2024 15:30-0400 Body temperature 98.2 [degF] Pascale Aichholz AUTOMATIC EDGER Work Phone: [facility] 11-20-2024 15:30-0400 Body weight 88.54 kg Pascale Shalaholz AUTOMATIC EDGER Work Phone: [facility] 11-20-2024 15:30-0400 Diastolic blood pressure 60 mm[Hg] Pascale Aichholz AUTOMATIC EDGER Work Phone: [facility] 11-20-2024 15:30-0400 Heart rate 80 /min Pascale Aichholz AUTOMATIC EDGER Work Phone: [facility] 11-20-2024 15:30-0400 Respiratory rate 18 /min Pascale Aichholz AUTOMATIC EDGER Work Phone: [facility] 11-20-2024 15:30-0400 SaO2% (BldA) [Mass fraction] 95 % Pascale Derrickhholz AUTOMATIC EDGER Work Phone: [facility] 11-20-2024 15:30-0400 Systolic blood pressure 104 mm[Hg] Pascale Aichholz AUTOMATIC EDGER Work Phone: [facility] 10-23-2024 17:34-0400 Body mass index (BMI) [Ratio] 32.58 kg/m2 Pascale Derrickhholz AUTOMATIC EDGER Work Phone: [facility] 10-23-2024 17:34-0400 Body temperature 98.8 [degF] Pascale Derrickhholz AUTOMATIC EDGER Work Phone: [facility] 10-23-2024 17:34-0400 Body weight 88.81 kg Pascale Derrickhholz AUTOMATIC EDGER Work Phone: [facility] 10-23-2024 17:34-0400 Diastolic blood pressure 85 mm[Hg] Pascale Aichholz AUTOMATIC EDGER Work Phone: [facility] 10-23-2024 17:34-0400 Heart rate 92 /min Pascale Aichholz AUTOMATIC EDGER Work Phone: [facility] 10-23-2024 17:34-0400 Respiratory rate 18 /min Pascale Aichholz AUTOMATIC EDGER Work Phone: [facility] 10-23-2024 17:34-0400 SaO2% (BldA) [Mass fraction] 97 % Pascale Arana AUTOMATIC EDGER Work Phone: [facility] 10-23-2024 17:34-0400 Systolic blood pressure 98 mm[Hg] Pascale Arana AUTOMATIC EDGER Work Phone: [facility] 10-02-2024 16:51-0400 Body height 165.1 cm Pascale Herreraz AUTOMATIC EDGER Work Phone: [facility] 10-02-2024 16:51-0400 Body mass index (BMI) [Ratio] 33.51 kg/m2 Pascaleeric Herreraz AUTOMATIC EDGER Work Phone: [facility] 10-02-2024 16:51-0400 Body temperature 97.81 [degF] Pascale Herreraz AUTOMATIC EDGER Work Phone: [facility] 10-02-2024 16:51-0400 Body weight 91.35 kg Pascale Arana AUTOMATIC EDGER Work Phone: [facility] 10-02-2024 16:51-0400 Heart rate 68 /min Pascale Herreraz AUTOMATIC EDGER Work Phone: [facility] 10-02-2024 16:51-0400 Respiratory rate 18 /min Pascale Arana AUTOMATIC EDGER Work Phone: [facility] 10-02-2024 16:51-0400 SaO2% (BldA) [Mass fraction] 97 % Pascale Herreraz AUTOMATIC EDGER Work Phone: [facility] 09-04-2024 16:10-0500 Body height 165.1 cm Angel Luis Groves AUTOMATIC EDGER Work Phone: [facility] 09-04-2024 16:10-0500 Body mass index (BMI) [Ratio] 33.28 kg/m2 Angel Luis Groves AUTOMATIC EDGER Work Phone: [facility] 09-04-2024 16:10-0500 Body temperature 97.2 [degF] Angel Luis Groves AUTOMATIC EDGER Work Phone: [facility] 09-04-2024 16:10-0500 Body weight 90.72 kg Angel Luis Groves AUTOMATIC EDGER Work Phone: [facility] 09-04-2024 16:10-0500 Diastolic blood pressure 60 mm[Hg] Angel Luis Groves AUTOMATIC EDGER Work Phone: [facility] 09-04-2024 16:10-0500 Heart rate 79 /min Angel Luis Groves AUTOMATIC EDGER Work Phone: [facility] 09-04-2024 16:10-0500 Respiratory rate 16 /min Angel Luis Groves AUTOMATIC EDGER Work Phone: [facility] 09-04-2024 16:10-0500 SaO2% (BldA) [Mass fraction] 98 % Angel Luis Groves AUTOMATIC EDGER Work Phone: [facility] 09-04-2024 16:10-0500 Systolic blood pressure 100 mm[Hg] Angel Luis Groves AUTOMATIC EDGER Work Phone: [facility] 08-12-2024 16:04-0500 Body mass index (BMI) [Ratio] 33.32 kg/m2 Pascale Aichholz AUTOMATIC EDGER Work Phone: [facility] 08-12-2024 16:04-0500 Body temperature 98.1 [degF] Pascale Derrickhholz AUTOMATIC EDGER Work Phone: [facility] 08-12-2024 16:04-0500 Body weight 90.81 kg Pascale Aichholz AUTOMATIC EDGER Work Phone: [facility] 08-12-2024 16:04-0500 Diastolic blood pressure 62 mm[Hg] Pascale Aichholz AUTOMATIC EDGER Work Phone: [facility] 08-12-2024 16:04-0500 Heart rate 80 /min Pascale Aichholz AUTOMATIC EDGER Work Phone: [facility] 08-12-2024 16:04-0500 Respiratory rate 20 /min Pascale Aichholz AUTOMATIC EDGER Work Phone: [facility] 08-12-2024 16:04-0500 SaO2% (BldA) [Mass fraction] 97 % Pascale Arana AUTOMATIC EDGER Work Phone: [facility] 08-12-2024 16:04-0500 Systolic blood pressure 90 mm[Hg] Pascale Arana AUTOMATIC EDGER Work Phone: [facility] 07-31-2024 14:59-0500 Body height 165.1 cm Angel Luis Groves AUTOMATIC EDGER Work Phone: [facility] 07-31-2024 14:59-0500 Body mass index (BMI) [Ratio] 34.28 kg/m2 Angel Luis Groves AUTOMATIC EDGER Work Phone: [facility] 07-31-2024 14:59-0500 Body temperature 96.21 [degF] Angel Luis Groves AUTOMATIC EDGER Work Phone: [facility] 07-31-2024 14:59-0500 Body weight 93.44 kg Angel Luis Groves AUTOMATIC EDGER Work Phone: [facility] 07-31-2024 14:59-0500 Diastolic blood pressure 62 mm[Hg] Angel Luis Groves AUTOMATIC EDGER Work Phone: [facility] 07-31-2024 14:59-0500 Heart rate 83 /min Angel Luis Groves AUTOMATIC EDGER Work Phone: [facility] 07-31-2024 14:59-0500 Respiratory rate 22 /min Angel Luis Groves AUTOMATIC EDGER Work Phone: [facility] 07-31-2024 14:59-0500 SaO2% (BldA) [Mass fraction] 98 % Angel Luis Groves AUTOMATIC EDGER Work Phone: [facility] 07-31-2024 14:59-0500 Systolic blood pressure 100 mm[Hg] Angel Luis Groves AUTOMATIC EDGER Work Phone: [facility] 04-10-2024 15:56-0400 Body height 165.1 cm Angel Luis Groves AUTOMATIC EDGER Work Phone: [facility] 04-10-2024 15:56-0400 Body mass index (BMI) [Ratio] 33.61 kg/m2 Angel Luis Groves AUTOMATIC EDGER Work Phone: [facility] 04-10-2024 15:56-0400 Body temperature 98.29 [degF] Angel Luis Groves AUTOMATIC EDGER Work Phone: [facility] 04-10-2024 15:56-0400 Body weight 91.63 kg Angel Luis Groves AUTOMATIC EDGER Work Phone: [facility] 04-10-2024 15:56-0400 Diastolic blood pressure 68 mm[Hg] Angel Luis Groves AUTOMATIC EDGER Work Phone: [facility] 04-10-2024 15:56-0400 Heart rate 67 /min Angel Luis Groves AUTOMATIC EDGER Work Phone: [facility] Comment on above: 98% O2 04-10-2024 15:56-0400 Systolic blood pressure 100 mm[Hg] Angel Luis Groves AUTOMATIC EDGER Work Phone: [facility] 03-18-2024 15:06-0400 Blood Pressure Location Ron Palomares [facility] 03-18-2024 15:06-0400 Diastolic blood pressure 69 mm[Hg] Ron Palomares [facility] 03-18-2024 15:06-0400 Heart rate 85 /min Ron Palomares [facility] 03-18-2024 15:06-0400 Respiratory rate 16 /min Ron Palomares [facility] 03-18-2024 15:06-0400 Systolic blood pressure 107 mm[Hg] Ron Palomares [facility] 03-12-2024 15:46-0400 Body height 165.1 cm Angel Luis Groves AUTOMATIC EDGER Work Phone: [facility] 03-12-2024 15:46-0400 Body mass index (BMI) [Ratio] 33.28 kg/m2 Angel Luis Groves AUTOMATIC EDGER Work Phone: [facility] 03-12-2024 15:46-0400 Body temperature 98.01 [degF] Angel Luis Groves AUTOMATIC EDGER Work Phone: [facility] 03-12-2024 15:46-0400 Body weight 90.72 kg Angel Luis Groves AUTOMATIC EDGER Work Phone: [facility] 03-12-2024 15:46-0400 Diastolic blood pressure 70 mm[Hg] Angel Luis Groves AUTOMATIC EDGER Work Phone: [facility] 03-12-2024 15:46-0400 Heart rate 71 /min Angel Luis Groves AUTOMATIC EDGER Work Phone: [facility] Comment on above: 99% O2 03-12-2024 15:46-0400 Systolic blood pressure 100 mm[Hg] Angel Luis Groves AUTOMATIC EDGER Work Phone: [facility] 06-07-2023 16:03-0500 Blood Pressure Location Segun HOLLOWAY [facility] [place] 06-07-2023 16:03-0500 Diastolic blood pressure 88 mm[Hg] Segun HOLLOWAY [facility] [place] 06-07-2023 16:03-0500 Heart rate 72 /min Segun HOLLOWAY [facility] [place] 06-07-2023 16:03-0500 Respiratory rate 16 /min Segun HOLLOWAY [facility] [place] 06-07-2023 16:03-0500 Systolic blood pressure 130 mm[Hg] Segun WILLARDJavier [facility] [place] 08-30-2021 13:00-0500 Body height 165.1 cm Kristin Ginty Other [facility] Other 08-30-2021 13:00-0500 Body mass index (BMI) [Ratio] 30.95 kg/m2 Kristin Ginty Other [facility] Other 08-30-2021 13:00-0500 Body temperature 98 [degF] Kristin Ginty Other [facility] Other 08-30-2021 13:00-0500 Body weight 84.37 kg Kristin Ginty Other [facility] Other 08-30-2021 13:00-0500 Respiratory rate 16 /min Kristin Ginty Other [facility] Other 08-30-2021 13:00-0500 SaO2% (BldA) [Mass fraction] 98 % Kristin Ginty Other [employer] Other Encounters Encounter Date Encounter Type Care Provider Facility Start: 04-09-2025 End: 04-10-2025 ambulatory ROHAN WATERS Not Available Start: 04-09-2025 End: 04-09-2025 Bamboo flowsheet Rohan Fuentesi MMD UNIT TEACHER [facility] Start: 04-09-2025 End: 04-09-2025 Bamboo flowsheet Rohan Fuentesi MMD UNIT TEACHER [facility] Start: 04-03-2025 End: 04-03-2025 Office outpatient visit 15 minutes Eunice Dias PMHNP- Work Phone: [facility] Comment on above: JESSIKA (generalized anx iety disorder) ; Severe episode of recurrent major depressive disorder, without psychotic features (HCC); PTSD (post-traumatic stress disorder) ; Insomnia, unspecified type; Fibromyalgia Start: 04-03-2025 End: 04-03-2025 ambulatory EUNICE DIAS Not Available Start: 04-02-2025 End: 04-02-2025 Office outpatient new 45 minutes Jovon Asif MD Work Phone: [facility] Comment on above: Cystocele with secon d degree uterine prolapse (Primary Dx); History of reconstructive repair of rectocele; Urge urinary incontinence Start: 04-02-2025 End: 04-02-2025 ambulatory JOVON ASIF [facility] Start: 03-25-2025 End: 03-25-2025 ambulatory ROHAN JOCONSTANTINI Not Available Start: 03-25-2025 End: 03-25-2025 Bamboo flowsheet Rohan Malicki MMD UNIT TEACHER [facility] Start: 03-25-2025 End: 03-25-2025 Bamboo flowsheet Rohan Malicki MMD UNIT TEACHER [facility] Start: 03-25-2025 End: 03-25-2025 ambulatory Pascale Arana Work Phone: [facility] Work Phone: Start: 03-25-2025 End: 03-25-2025 Patient encounter procedure Shun Arshad MD -[facility]ly [facility] Work Phone: Start: 03-10-2025 End: 03-10-2025 ambulatory Flores Eden MD Facility:[facility] Start: 03-06-2025 End: 03-06-2025 ambulatory ROHAN JOICKI Not Available Start: 03-06-2025 End: 03-06-2025 Bamboo flowsheet Rohan Malicki MMD UNIT TEACHER [facility] Start: 03-06-2025 End: 03-06-2025 Bamboo flowsheet Rohan Malicki MMD UNIT TEACHER [facility] Start: 03-05-2025 End: 03-05-2025 Clinisync Result Encounter Pascale Arana AUTOMATIC EDGER Work Phone: [facility] External Department Unsolicited Start: 03-05-2025 End: 03-05-2025 Clinisync Result Encounter Pascale Arana AUTOMATIC EDGER Work Phone: [facility] External Department Unsolicited Start: 02-26-2025 End: 02-27-2025 Clinisync Result Encounter Generic External Data Provider [facility] External Department Unsolicited Start: 02-26-2025 End: 02-27-2025 Clinisync Result Encounter Generic External Data Provider [facility] External Department Unsolicited Start: 02-26-2025 End: 02-26-2025 Refill Pascale Arana AUTOMATIC EDGER Work Phone: [facility] Comment on above: Gastroesophageal ref lux disease, unspecified whether esophagitis present (Primary Dx) Start: 02-25-2025 End: 02-25-2025 Office outpatient visit 25 minutes Pascale Arana AUTOMATIC EDGER Work Phone: [facility] Comment on above: Severe episode of re [...] insomnia Start: 02-25-2025 End: 02-25-2025 ambulatory PASCALE LASTJASMINEAlex Not Available Start: 02-24-2025 End: 02-24-2025 ambulatory EUNICE DIAS Not Available Start: 02-24-2025 End: 02-24-2025 Office outpatient visit 15 minutes Eunice Dias PMHNP-BC Work Phone: [facility] Comment on above: JESSIKA (generalized anx iety disorder) ; Severe episode of recurrent major depressive disorder, without psychotic features (HCC); PTSD (post-traumatic stress disorder) ; Insomnia, unspecified type; Sleep apnea, unspecified type Start: 02-24-2025 End: 02-24-2025 Bamboo flowsheet Eunice Dias PMHNP-BC Work Phone: [facility] Start: 02-24-2025 End: 02-24-2025 Bamboo flowsheet Eunice Dias PMHNP-BC Work Phone: [facility] Start: 02-24-2025 End: 02-24-2025 Chart abstracting Jovon Asif MD Work Phone: [facility] Start: 02-20-2025 End: 02-20-2025 Refill Pascale Sumit AUTOMATIC EDGER Work Phone: [facility] Comment on above: Psychophysiological insomnia Start: 02-19-2025 End: 02-19-2025 Clinisync Result Encounter Generic External Data Provider [facility] External Department Unsolicited Start: 02-19-2025 End: 02-19-2025 Clinisync Result Encounter Generic External Data Provider [facility] External Department Unsolicited Start: 02-11-2025 End: 02-12-2025 Refill Pascale Sumit AUTOMATIC EDGER Work Phone: [facility] Comment on above: UTI (urinary tract [...] Start: 02-06-2025 End: 02-06-2025 Refill Pascale Sumit AUTOMATIC EDGER Work Phone: [facility] Comment on [...] 01-22-2025 End: 01-22-2025 Bamboo flowsheet Eunice Dias [facility] Work Phone: [facility] Start: 01-22-2025 End: 01-22-2025 Bamboo flowsheet Eunice Dias [facility] Work Phone: [facility] Start: 01-22-2025 End: 01-22-2025 ambulatory EUNICE DIAS Not Available Start: 01-20-2025 End: 01-20-2025 ambulatory Flores Eden MD Facility:[facility] Start: 01-14-2025 End: 01-14-2025 Clinisync Result Encounter Pascale Arana AUTOMATIC EDGER Work Phone: [facility] External Department Unsolicited Start: 01-14-2025 End: 01-14-2025 Clinisync Result Encounter Pascale Arana AUTOMATIC EDGER Work Phone: [facility] External Department Unsolicited Start: 01-14-2025 End: 01-14-2025 Refill Pascale Arana AUTOMATIC EDGER Work Phone: [facility] Comment on above: URTI (acute upper re spiratory infection); Non-recurrent acute suppurative otitis media of both ears without spontaneous rupture of tympanic membranes Start: 01-07-2025 End: 01-07-2025 Orders Only Pascale Arana AUTOMATIC EDGER Work Phone: [facility] Comment on above: B12 deficiency (Prim radha Dx); Iron deficiency anemia secondary to inadequate dietary iron intake Start: 01-06-2025 End: 01-06-2025 Office outpatient visit 25 minutes Pascale Arana AUTOMATIC EDGER Work Phone: [facility] Comment on above: Bipolar disorder wit [...] 01-06-2025 End: 01-06-2025 Bamboo flowsheet Pascale Arana AUTOMATIC EDGER Work Phone: [facility] Start: 01-06-2025 End: 01-06-2025 Bamboo flowsheet Pascale Arana AUTOMATIC EDGER Work Phone: [facility] Start: 01-06-2025 End: 01-06-2025 Telephone encounter Pascale Arana AUTOMATIC EDGER Work Phone: [facility] Start: 12-18-2024 End: 12-20-2024 Refill Pascale Arana AUTOMATIC EDGER Work Phone: [facility] Comment on above: URTI (acute upper re spiratory infection); Non-recurrent acute suppurative otitis media of both ears without spontaneous rupture of tympanic membranes Start: 11-20-2024 End: 11-20-2024 ambulatory PASCALE ARANA Not Available Start: 11-20-2024 End: 11-20-2024 Patient encounter procedure Pascale Arana AUTOMATIC EDGER Work Phone: [facility] Start: 11-20-2024 End: 11-20-2024 Periodic preventive med est patient 40-64yrs Pascale Arana AUTOMATIC EDGER Work Phone: [facility] Comment on above: Well woman [...] 11-20-2024 End: 11-20-2024 Bamboo flowsheet Pascale Sumit AUTOMATIC EDGER Work Phone: [facility] Start: 11-20-2024 End: 11-26-2024 Bamboo flowsheet Pascale Derrickpiperdes AUTOMATIC EDGER Work Phone: [facility] Start: 11-20-2024 End: 11-26-2024 Clinisync Result Encounter Pascale Sumit AUTOMATIC EDGER Work Phone: [facility] External Department Unsolicited Start: 11-18-2024 End: 11-20-2024 Refill Pascale Sumit AUTOMATIC EDGER Work Phone: [facility] Comment on above: Overactive bladder d ue to prolapse of female genital organ Gastroesophageal ref lux disease, unspecified whether esophagitis present Psychophysiological insomnia Fibromyalgia Environmental and se asonal allergies URTI (acute upper re spiratory infection); Non-recurrent acute suppurative otitis media of both ears without spontaneous rupture of tympanic membranes Bipolar disorder wit h severe depression (CMS/[facility]) Start: 10-23-2024 End: 10-23-2024 Office outpatient visit 15 minutes Pascale Arana NP Work Phone: [facility] Comment on above: Iron deficiency anem ia secondary to inadequate dietary iron intake (Primary Dx); Class 1 obesity due to excess calories without serious comorbidity in adult, unspecified BMI; Cigarette nicotine dependence without complication; B12 deficiency; BMI 32.0-32.9,adult Start: 10-23-2024 End: 10-23-2024 Clinisync Result Encounter Pascale Sumit CAMARGO Work Phone: [facility] External Department Unsolicited Start: 10-23-2024 End: 10-23-2024 Clinisync Result Encounter Pascale Arana NP Work Phone: [facility] External Department Unsolicited Start: 10-23-2024 End: 01-15-2025 Patient encounter procedure Molina De Anda MD Work Phone: [facility] Start: 10-23-2024 End: 10-23-2024 Refill Molina De Anda MD Work Phone: [facility] Comment on above: URTI (acute upper re spiratory infection); Non-recurrent acute suppurative otitis media of both ears without spontaneous rupture of tympanic membranes Start: 10-03-2024 End: 10-03-2024 Clinisync Result Encounter Pascale Arana NP Work Phone: [facility] External Department Unsolicited Start: 10-03-2024 End: 10-03-2024 Clinisync Result Encounter Pascale Arana AUTOMATIC EDGER Work Phone: [facility] External Department Unsolicited Start: 10-02-2024 End: 10-02-2024 Office outpatient visit 25 minutes Pascale Arana NP Work Phone: [facility] Comment on above: Gastroesophageal ref lux [...] 10-02-2024 End: 10-02-2024 Bamboo flowsheet Pascale Arana AUTOMATIC EDGER Work Phone: [facility] Start: 10-02-2024 End: 10-02-2024 Bamboo flowsheet Pascale Arana AUTOMATIC EDGER Work Phone: [facility] Start: 09-09-2024 End: 09-09-2024 Clinisync Result Encounter Generic External Data Provider [facility] External Department Unsolicited Start: 09-09-2024 End: 09-09-2024 Clinisync Result Encounter Generic External Data Provider [facility] External Department Unsolicited Start: 09-06-2024 End: 09-09-2024 Refill Pascale Arana AUTOMATIC EDGER Work Phone: [facility] Comment on above: Environmental and se asonal allergies Start: 09-05-2024 End: 09-05-2024 Clinisync Result Encounter Generic External Data Provider [facility] External Department Unsolicited Start: 09-05-2024 End: 09-05-2024 Clinisync Result Encounter Generic External Data Provider [facility] External Department Unsolicited Start: 09-04-2024 End: 09-04-2024 Office outpatient visit 10 minutes Angel Luis Mathurtrick AUTOMATIC EDGER Work Phone: [facility] Comment on above: BMI 33.0-33.9,adult (Primary Dx); Bipolar disorder with severe depression ([facility]); Fibromyalgia; Gastro-esophageal reflux disease without esophagitis; Esophageal reflux; BMI 34.0-34.9,adult; Psychophysiological insomnia; Overactive bladder due to prolapse of female genital organ Start: 09-04-2024 End: 09-04-2024 ambulatory ANGEL LUIS GROVES Not Available Start: 09-04-2024 End: 09-04-2024 Bamboo flowsheet Angel Luis Groves AUTOMATIC EDGER Work Phone: [facility] Start: 09-04-2024 End: 09-04-2024 Bamboo flowsheet Angel Luis Groves AUTOMATIC EDGER Work Phone: [facility] Start: 08-28-2024 End: 08-28-2024 Refill Angel Luis Groves AUTOMATIC EDGER Work Phone: [facility] Comment on above: Fibromyalgia Start: 08-14-2024 End: 08-14-2024 Refill Angel Luis Groves AUTOMATIC EDGER Work Phone: [facility] Comment on above: Fibromyalgia Start: 08-12-2024 End: 08-12-2024 Office outpatient visit 25 minutes Pascale Arana AUTOMATIC EDGER Work Phone: [facility] Comment on above: Acute non-recurrent maxillary sinusitis (Primary Dx); Cigarette nicotine dependence without complication; Class 1 obesity due to excess calories without serious comorbidity in adult, unspecified BMI; Environmental and seasonal allergies; Cutaneous abscess of abdominal wall Start: 08-12-2024 End: 08-12-2024 ambulatory PASCALE SUMIT Not Available Start: 08-12-2024 End: 08-12-2024 Bamboo flowsheet Pascale Sumit AUTOMATIC EDGER Work Phone: [facility] Start: 08-12-2024 End: 08-14-2024 Bamboo flowsheet Pascale Sumit AUTOMATIC EDGER Work Phone: [facility] Start: 08-12-2024 End: 08-14-2024 External Result Encounter Pascale Sumit AUTOMATIC EDGER Work Phone: [facility] External Department Unsolicited Start: 08-05-2024 End: 08-06-2024 Orders Only Angel Luis Groves AUTOMATIC EDGER Work Phone: [facility] Comment on above: B12 deficiency (Prim radha Dx); Iron deficiency anemia, unspecified iron deficiency anemia type Start: 08-01-2024 End: 08-01-2024 Clinisync Result Encounter Angel Luis Groves AUTOMATIC EDGER Work Phone: [facility] External Department Unsolicited Start: 08-01-2024 End: 08-01-2024 Clinisync Result Encounter Angel Luis Groves AUTOMATIC EDGER Work Phone: [facility] External Department Unsolicited Start: 07-31-2024 End: 07-31-2024 Office outpatient visit 15 minutes Angel Luis Groves AUTOMATIC EDGER Work Phone: [facility] Comment on above: Iron deficiency anem ia secondary to inadequate dietary iron intake (Primary Dx); Fibromyalgia; Psychophysiological insomnia; BMI 34.0-34.9,adult Start: 07-31-2024 End: 07-31-2024 ambulatory ANGEL LUIS LEÓNK Not Available Start: 07-31-2024 End: 07-31-2024 Bamboo flowsheet Angel Luis Groves AUTOMATIC EDGER Work Phone: [facility] Start: 07-31-2024 End: 07-31-2024 Bamboo flowsheet Angel Luis Groves AUTOMATIC EDGER Work Phone: [facility] Start: 07-25-2024 End: 07-29-2024 Refill Angel Luis Groves AUTOMATIC EDGER Work Phone: [facility] Comment on above: Psychophysiological insomnia Start: 06-25-2024 End: 06-25-2024 Refill Angel Luis Groves AUTOMATIC EDGER Work Phone: [facility] Comment on above: Psychophysiological insomnia Start: 06-11-2024 End: 06-11-2024 Orders Only Angel Luis Groves AUTOMATIC EDGER Work Phone: [facility] Comment on above: Fibromyalgia (Primar y Dx) Start: 06-03-2024 End: 06-03-2024 Refill Angel Luis Groves AUTOMATIC EDGER Work Phone: [facility] Comment on above: Fibromyalgia Start: 05-27-2024 End: 05-27-2024 Orders Only Angel Luis Groves AUTOMATIC EDGER Work Phone: [facility] Comment on above: Psychophysiological insomnia (Primary Dx) Start: 04-18-2024 End: 04-18-2024 Patient encounter procedure MD Tyson Collazo Work Phone: [facility] [address] Work Phone: Start: 04-18-2024 End: 04-18-2024 ambulatory Tyson Collazo [facility] Work Phone: Start: 04-10-2024 End: 04-10-2024 Office outpatient visit 15 minutes Angel Luis Groves AUTOMATIC EDGER Work Phone: [facility] Comment on above: Psychophysiological insomnia (Primary Dx); Fibromyalgia; Constipation, unspecified constipation type Start: 04-10-2024 End: 04-10-2024 Bamboo flowsheet Angel Luis Groves AUTOMATIC EDGER Work Phone: [facility] Start: 04-10-2024 End: 04-10-2024 Bamboo flowsheet Angel Luis Groves AUTOMATIC EDGER Work Phone: [facility] Start: 03-18-2024 End: 03-18-2024 [facility]ulatory [facility] Start: 03-18-2024 End: 03-18-2024 Patient encounter procedure Ron Palomares [facility] Start: 03-13-2024 End: 03-13-2024 Refill Angel Luis Groves AUTOMATIC EDGER Work Phone: [facility] Comment on above: Fibromyalgia (Primar y Dx) Start: 03-12-2024 End: 03-12-2024 Office outpatient visit 15 minutes Angel Luis Groves AUTOMATIC EDGER Work Phone: [facility] Comment on above: Constipation, unspec ified constipation type (Primary Dx); Fibromyalgia Start: 03-12-2024 End: 03-12-2024 Bamboo flowsheet Angel Luis Groves AUTOMATIC EDGER Work Phone: [facility] Start: 03-12-2024 End: 03-12-2024 Bamboo flowsheet Angel Luis Groves AUTOMATIC EDGER Work Phone: [facility] Start: 03-07-2024 ambulatory Ron Palomares Facilit y:Ron Start: 02-26-2024 Non-patient / Non-visit MD Roel Collazo Work Phone: [facility] Work Phone: Start: 08-25-2023 Refill Shaikh Etelvina WELLER Work Phone: [facility] Comment on above: Bipolar disorder wit h severe depression (CMS/HCC) Start: 07-19-2023 End: 07-19-2023 ambulatory Segun HOLLOWAY Facility::[id number] Start: 06-07-2023 End: 06-07-2023 ambulatory Segun HOLLOWAY [facility] Start: 06-07-2023 End: 06-07-2023 Patient encounter procedure Segun HOLLOWAY General [facility] Start: 06-05-2023 ambulatory Ron Palomares Facilit y:STEPHANIE [facility] Start: 05-18-2023 ambulatory Ron Palomares Facilit y:[facility] Start: 04-07-2023 End: 04-07-2023 ambulatory [facility] Start: 02-08-2023 ambulatory [facility] Start: 05-31-2022 End: 06-01-[address] TAMIKO NETTLES Facility:[facility] Start: 05-10-2022 End: 05-11-[address] ELLIOT JOSE Facility:[facility] Start: 04-19-2022 End: 04-20-2022 ambulatory KAJAL ESCOBEDO Facility:[facility] Start: 03-29-2022 End: 03-30-2022 ambulatory KAJAL ESCOBEDO Facility:[facility] Start: 03-10-2022 End: 03-10-2022 ambulatory TAWANA FOSTER Facility:[facility] Start: 03-07-2022 Encounter for prepro cedural cardiovascular examination TAWANA FOSTER [facility] Start: 03-07-2022 Encounter for prepro cedural laboratory examination TAWANA FOSTER [facility] Start: 03-03-2022 End: 03-04-2022 ambulatory TAWANA FOSTER Facility:[facility] Start: 03-03-2022 End: 03-04-2022 Encounter for preprocedural laboratory examination TAWANA FOSTER Facility:[facility] Start: 02-22-2022 End: 02-23-2022 ambulatory TAWANA FOSTER Facility:[facility] Start: 02-09-2022 End: 02-10-2022 ambulatory TAWANA FOSTER Facility:[facility] Start: 08-30-2021 End: 08-30-2021 ambulatory Kristin Quintana Other [facility] Other Start: 08-30-2021 Office outpatient vi sit 15 minutes Kristin Quintana [facility] Start: 06-07-2021 End: 06-07-[address] ROBERTO SCOTT Facility: Start: 11-14-2018 End: 11-15-2018 Patient encounter procedure DEFAULT PHYSICIAN Facility:[facility] Procedures Date Procedure Procedure Detail Performing Clinician Start: 04-09-2025 End: 04-10-2025 Psychotherapy w/patient 60 minutes JESSIKA (generalized anxiety disorder) Rohan Waters MMD UNIT TEACHER Comment on above: JESSIKA (generalized anxiety disorder) ; Severe episode of recurrent major depressive disorder, without psychotic features (HCC); PTSD (post-traumatic stress disorder) Start: 03-25-2025 End: 03-25-2025 Psychotherapy w/patient 60 minutes JESSIKA (generalized anxiety disorder) Rohan Waters MMD UNIT TEACHER Comment on above: JESSIKA (generalized anxiety disorder) ; Severe episode of recurrent major depressive disorder, without psychotic features (HCC); PTSD (post-traumatic stress disorder) Start: 03-06-2025 End: 03-06-2025 Psychiatric diagnostic evaluation JESSIKA (generalized anxiety disorder) Rohan Waters MMD UNIT TEACHER Comment on above: JESSIKA (generalized anxiety disorder) ; Severe episode of recurrent major depressive disorder, without psychotic features (HCC); PTSD (post-traumatic stress disorder) Start: 03-05-2025 ALL CBC WITH AUTO DIFF Pascale Arana AUTOMATIC EDGER Work Phone: Start: 02-26-2025 SEGMENTAL BLOOD PRESSURE Generic Externa l Data Provider Start: 02-19-2025 XR FOOT LT MIN 3V Generic External Data Provider Start: 02-05-2025 MR LUMBAR SPINE WO CON Generic External Data Provider Start: 02-05-2025 Mri spinal canal cervical w/o contrast matrl Generic External Data Provider Start: 01-22-2025 End: 01-22-2025 Psychiatric diagnostic eval w/medical services JESSIKA (generalized anxiety disorder) Eunice Dias PMHNP-BC Work Phone: Comment on above: JESSIKA (generalized anxiety disorder) ; Severe episode of recurrent major depressive disorder, without psychotic features (HCC); PTSD (post-traumatic stress disorder) ; Insomnia, unspecified type; Sleep apnea, unspecified type; Encounter for drug screening Start: 01-14-2025 ALL CBC WITH AUTO DIFF Pascale Arana AUTOMATIC EDGER Work Phone: Start: 11-20-2024 IGP,APTIMA HPV,AGE GDLN Pascale Arana AUTOMATIC EDGER Work Phone: Start: 11-20-2024 Microscopic observation [Identifier] in Cervix by Cyto stain Pascale Arana AUTOMATIC EDGER Work Phone: Start: 10-23-2024 MM TOMOSYNTHESIS SCREENING BI Pascale lui AUTOMATIC EDGER Work Phone: Start: 10-23-2024 Mammography Pascale Arana AUTOMATIC EDGER Work Phone: Start: 10-03-2024 ALL CBC WITH AUTO DIFF Pascale Arana AUTOMATIC EDGER Work Phone: Start: 09-09-2024 CT FOOT LT WO CON Generic External Data Provider Start: 09-05-2024 XR FOOT LT MIN 3V Generic External Data Provider Start: 08-12-2024 CHRONIC WOUND/ULCER (HTRX) Pascale Arana AUTOMATIC EDGER Work Phone: Start: 08-01-2024 ALL CBC WITH AUTO DIFF Angel Luis Groves AUTOMATIC EDGER Work Phone: Start: 07-19-2023 Colonoscopy Shaikh Etelvina WELLER Work Phone: Start: 02-09-2023 Esophagogastroduodenoscopy Segun HOLLOWAY Start: 07-24-2019 Bypass of stomach Segun HOLLOWAY Start: 07-24-2018 Transurethral cystoscopy Segun HOLLOWAY Start: 07-24-2017 Transurethral cystoscopy Segun HOLLOWAY Cholecystectomy Segun HOLLOWAY H/O: surgery History of reconstructive repair of rectocele Sheliadb Muniz DO Work Phone: H/O: surgery History of reconstructive repair of rectocele Jovon Asif MD Work Phone: Ligation of fallopian tube Lashaun HOLLOWAY Repair of cystocele Segun HOLLOWAY Plan of Treatment Date Care Activity Detail Author Start: 07-19-2033 Screening for malign ant neoplasm of colon [facility] Start: 11-21-2027 Screening for malign ant neoplasm of cervix [facility] Start: 04-02-2026 Adult BMI Screening Adult BMI Screen [facility] Start: 02-24-2026 Tobacco Screening Tobacco Screening [facility] Start: 02-06-2026 Adult BMI Screening Adult BMI Screen ing [facility] Start: 02-06-2026 Tobacco Screening Tobacco Screening [facility] Start: 10-23-2025 Screening for malign ant neoplasm of breast Mammogram [facility] Start: 05-28-2025 End: 05-28-2025 Patient encounter procedure 05/28/2025 2:30 PM EST Procedure visit [facility] [address] [place] [address] Jovon Asif MD [address] [place] [address] [facility] Start: 05-21-2025 End: 05-21-2025 Social Work 05/21/2025 4:30 PM EDT Social Work [facility] [address] [place] [address] Rohan Waters LPC [facility] Start: 05-19-2025 End: 05-19-2025 Patient encounter procedure 05/19/2025 3:30 PM EDT Office Visit [facility] [address] [place] [address] Macarena Chang, BAIL AGENT-CORRESPONDENCE CLERK [address] [place] [address] [facility] Start: 04-30-2025 End: 04-30-2025 Patient encounter procedure 04/30/2025 4:30 PM EDT Office Visit [facility] [address] [place] [address] Pascale Arana, MARY JO [address] [place] [address] [facility] Start: 04-24-2025 End: 04-24-2025 Social Work 04/24/2025 4:30 PM EDT Social Work [facility] [address] [place] [address] Rohan Waters LPC [facility] Start: 04-09-2025 End: 04-09-2025 Social Work [facility] Comment on above: Arrived Start: 04-03-2025 End: 04-03-2025 Telemedicine consultation with patient 04/03/2025 9:00 AM EDT Telemedicine [facility] [address] [place] [phone] Eunice Dias, HNP- [address] [place] [address] [facility] Start: 04-02-2025 End: 04-02-2025 Patient encounter procedure 04/02/2025 3:00 PM EDT Office Visit [facility] [address] [place] [phone] Jovon Asif MD [address] [place] [address] [facility] Start: 03-25-2025 End: 03-25-2025 Social Work [facility] Comment on above: Arrived Start: 03-24-2025 Influenza vaccination [facility] Start: 03-06-2025 End: 03-06-2025 Social Work [facility] Comment on above: Arrived Start: 02-25-2025 End: [...] 02/25/2025 11:30 AM EDT [facility] [address] [place] [address] Pascale Arana, AUTOMATIC EDGER [address] [place] [phone] [facility] Start: 02-24-2025 End: 02-24-2025 Patient encounter procedure [facility] Start: 02-05-2025 End: 02-05-2025 Patient encounter procedure 02/05/2025 3:20 PM EDT Office Visit [facility] [address] [place] [address] Pascale Arana, AUTOMATIC EDGER [address] [place] [address] [facility] Start: 01-22-2025 End: 01-22-2025 Patient encounter procedure [facility] Comment on above: Bipolar disorder wit h severe depression (HCC) Start: 01-07-2025 End: 01-07-2026 CBC W Auto Differential panel - Blood CBC and differential Lab Routine Iron deficiency anemia secondary to inadequate dietary iron intake Expected: 01/07/2025 (Approximate), Expires: 01/07/2026 [facility] Work Phone: Comment on above: Expected: 01/07/2025 (Approximate), Expires: 01/07/2026 Start: 01-07-2025 End: 01-07-2026 Cobalamin (Vitamin B12) [Mass/volume] in Serum or Plasma Vitamin B12 Lab Routine B12 deficiency Iron deficiency anemia secondary to inadequate dietary iron intake Expected: 01/07/2025 (Approximate), Expires: 01/07/2026 [facility] Comment on above: Expected: 01/07/2025 (Approximate), Expires: 01/07/2026 Start: 01-07-2025 End: 01-07-2026 Ferritin [Mass/volume] in Serum or Plasma Ferritin Lab Routine Iron deficiency anemia secondary to inadequate dietary iron intake Expected: 01/07/2025 (Approximate), Expires: 01/07/2026 [facility] Comment on above: Expected: 01/07/2025 (Approximate), Expires: 01/07/2026 Start: 01-07-2025 End: 01-07-2026 Iron + transferrin + TIBC Iron + transferrin + TIBC Lab Routine Iron deficiency anemia secondary to inadequate dietary iron intake Expected: 01/07/2025 (Approximate), Expires: 01/07/2026 [facility] Comment on above: Expected: 01/07/2025 (Approximate), Expires: 01/07/2026 Start: 01-06-2025 End: 01-06-2025 Patient encounter [facility] Comment on above: Gastroesophageal ref lux disease, unspecified whether esophagitis present (Primary Dx); Class 1 obesity due to excess calories without serious comorbidity with body mass index (BMI) of 32.0 to 32.9 in adult; Cigarette nicotine dependence without complication Start: 11-20-2024 End: 11-20-2024 Patient encounter procedure 11/20/2024 3:20 PM EDT Office Visit [facility] [address] [place] [address] Pascale Arana, MARY JO [address] [place] [phone] [facility] Start: 11-20-2024 End: 11-20-2025 THIN PREP TIS PAP AND HR HPV DNA THIN PREP TIS PAP AND HR HPV DNA Pathology and Cytology Routine Well woman exam with routine gynecological exam Expected: 11/20/2024 (Approximate), Expires: 11/20/2025 [facility] Work Phone: Comment on above: Expected: 11/20/2024 (Approximate), Expires: 11/20/2025 Start: 10-23-2024 End: 10-23-2024 Patient encounter procedure 10/23/2024 5:30 PM EDT Procedure Visit [facility] [address] [place] [address] Pascale Arana, MARY JO [address] [place] [phone] [facility] Start: 10-07-2024 Influenza vaccination Influenza Vacc ine (#1) [facility] Comment on above: Postponed from 03/24 (Patient Refused) Start: 10-04-2024 End: 08-06-2025 CBC W Auto Differential panel - Blood CBC and differential Lab Routine B12 deficiency Iron deficiency anemia, unspecified iron deficiency anemia type Expected: 10/04/2024 (Approximate), Expires: 08/06/2025 [facility] Work Phone: Comment on above: Expected: 10/04/2024 (Approximate), Expires: 08/06/2025 Start: 10-04-2024 End: 08-06-2025 Cobalamin (Vitamin B12) [Mass/volume] in Serum or Plasma Vitamin B12 Lab Routine B12 deficiency Iron deficiency anemia, unspecified iron deficiency anemia type Expected: 10/04/2024 (Approximate), Expires: 08/06/2025 [facility] Comment on above: Expected: 10/04/2024 (Approximate), Expires: 08/06/2025 Start: 10-04-2024 End: 08-06-2025 Ferritin [Mass/volume] in Serum or Plasma Ferritin Lab Routine B12 deficiency Iron deficiency anemia, unspecified iron deficiency anemia type Expected: 10/04/2024 (Approximate), Expires: 08/06/2025 [facility] Comment on above: Expected: 10/04/2024 (Approximate), Expires: 08/06/2025 Start: 10-04-2024 End: 08-06-2025 Iron + transferrin + TIBC Iron + transferrin + TIBC Lab Routine B12 deficiency Iron deficiency anemia, unspecified iron deficiency anemia type Expected: 10/04/2024 (Approximate), Expires: 08/06/2025 [facility] Comment on above: Expected: 10/04/2024 (Approximate), [...] B12 deficiency Expected: 10/02/2024 (Approximate), Expires: 10/02/2025 [facility] Comment on above: Expected: 10/02/2024 (Approximate), Expires: 10/02/2025 Start: 10-02-2024 End: 10-02-2025 Cobalamin (Vitamin B12) [Mass/volume] in Serum or Plasma Vitamin B12 Lab Routine B12 deficiency Expected: 10/02/2024 (Approximate), Expires: 10/02/2025 [facility] Comment on above: Expected: 10/02/2024 (Approximate), Expires: 10/02/2025 Start: 10-02-2024 End: 10-02-2025 Ferritin [Mass/volume] in Serum or Plasma Ferritin Lab Routine Iron deficiency anemia secondary to inadequate dietary iron intake Expected: 10/02/2024 (Approximate), Expires: 10/02/2025 [facility] Comment on above: Expected: 10/02/2024 (Approximate), Expires: 10/02/2025 Start: 10-02-2024 End: 10-02-2025 Iron + transferrin + TIBC Iron + transferrin + TIBC Lab Routine Iron deficiency anemia secondary to inadequate dietary iron intake Expected: 10/02/2024 (Approximate), Expires: 10/02/2025 [facility] Comment on above: Expected: 10/02/2024 (Approximate), Expires: 10/02/2025 Start: 10-02-2024 End: 12-02-2025 MG Breast - bilateral Screening Bilateral screening mammogram Imaging Routine Encounter for screening mammogram for malignant neoplasm of breast Expected: 10/02/2024 (Approximate), Expires: 12/02/2025 [facility] Work Phone: Comment on above: Expected: 10/02/2024 (Approximate), Expires: 12/02/2025 Start: 09-04-2024 End: 09-04-2024 Patient encounter procedure [facility] Comment on above: Arrived Start: 08-12-2024 End: 08-12-2024 Patient encounter procedure 08/12/2024 4:00 PM EST Office Visit [facility] [address] [place] [address] Pascale Arana NP [address] [place] [address] Arrived [facility] Comment on above: Arrived Start: 08-12-2024 End: 08-12-2025 SUPERFICIAL WOUND (HTRX) SUPERFICIAL WOUND (HTRX) Lab Routine Cutaneous abscess of abdominal wall Expected: 08/12/2024 (Approximate), Expires: 08/12/2025 [facility] Work Phone: Comment on above: Expected: 08/12/2024 (Approximate), Expires: 08/12/2025 Start: 07-31-2024 End: 07-31-2024 Patient encounter procedure [facility] Comment on above: Arrived Start: 07-31-2024 End: 07-31-2025 Cobalamin (Vitamin B12) [Mass/volume] in Serum or Plasma Vitamin B12 Lab Routine Iron deficiency anemia secondary to inadequate dietary iron intake Expected: 07/31/2024 (Approximate), Expires: 07/31/2025 [facility] Comment on above: Expected: 07/31/2024 (Approximate), Expires: 07/31/2025 Start: 07-31-2024 End: 07-31-2025 Ferritin [Mass/volume] in Serum or Plasma Ferritin Lab Routine Iron deficiency anemia secondary to inadequate dietary iron intake Expected: 07/31/2024 (Approximate), Expires: 07/31/2025 [facility] Comment on above: Expected: 07/31/2024 (Approximate), Expires: 07/31/2025 Start: 07-31-2024 End: 07-31-2025 Iron + transferrin + TIBC Iron + transferrin + TIBC Lab Routine Iron deficiency anemia secondary to inadequate dietary iron intake Expected: 07/31/2024 (Approximate), Expires: 07/31/2025 [facility] Comment on above: Expected: 07/31/2024 (Approximate), Expires: 07/31/2025 Start: 07-10-2024 End: 07-10-2024 Patient encounter procedure 07/10/2024 4:30 PM EST Office Visit [facility] [address] [place] [phone] Angel Luis Groves NP [address] [place] [phone] [facility] Start: 06-05-2024 End: 06-05-2024 Patient encounter procedure 06/05/2024 5:30 PM EST Office Visit [facility] [address] [place] [phone] Angel Luis Groves, MARY JO [address] [place] [address] [facility] Start: 04-10-2024 End: 04-10-2024 Patient encounter procedure [facility] Comment on above: Arrived Start: 03-24-2024 Influenza vaccination Influenza Vacc ine (#1) [facility] Start: 03-12-2024 End: 03-12-2024 Patient encounter procedure 03/12/2024 3:30 PM EDT Office Visit [facility] [address] [place] [address] Angel Luis Groves, MARY JO [address] [place] [address] Arrived [facility] Comment on above: Arrived Start: 11-13-2023 End: 11-13-2023 Patient encounter procedure 11/13/2023 4:45 PM EDT Office Visit [facility] [address] [place] [address] Shaikh Main MD [address] [place] [address] [facility] Start: 03-24-2023 Influenza vaccination Influenza Vacc ine (#1) [facility] Start: 2021 Administration of varicella zoster vaccine Zoster (Shingles) Vaccine (1 of 2) [facility] Start: 2011 Screening for malign ant neoplasm of breast Mammogram [facility] Start: 2001 Screening for malign ant neoplasm of cervix [facility] Start: 1992 Screening for malign ant neoplasm of cervix Pap Smear [facility] Start: 1990 DTaP,Tdap and Td Vac cines (1 - Tdap) DTaP,Tdap and Td Vaccines (1 - Tdap) [facility] Start: 1989 Adult BMI Follow Up Plan Adult BMI Follow Up Plan [facility] Start: 1983 [facility] Start: 1971 Screening for malign ant neoplasm of colon [facility] Start: 1971 Screening for malign ant neoplasm of lung Lung Cancer Screening Shared Decision Making [facility] Start: 1971 Tobacco Counseling Tobacco Counselherb cano [facility] CBC W Auto Different ial panel - Blood CBC and differential Lab Routine Iron deficiency anemia secondary to inadequate dietary iron intake Ordered: 07/31/2024 [facility] Work Phone: Comment on above: Ordered: 07/31/2024 DRUG TOX MONITORIGN 6 W/ CONF,URINE DRUG TOX MONITORIGN 6 W/ CONF,URINE Lab Routine Encounter for drug screening Ordered: 01/22/2025 [facility] Work Phone: Comment on above: Ordered: 01/22/2025 Sjogrens syndrome-A extractable nuclear Ab [Units/volume] in Serum [facility] Sjogrens syndrome-B extractable nuclear Ab [Units/volume] in Serum [facility] Immunizations Immunization Date Immunization Notes Care Provider Fa inder NEGATED: Highlighted row has not occurred!06-07-2023 influenza virus vaccine, unspecified formulation Segun HOLLOWAY [facility] [place] Payers Date Payer Category Payer Private Health Insurance [id number] Self-pay 2009 Commercial Managed Care - POS [id number] 2009 Managed Care HMO (unspecified) [id number] 1971 Unknown [id number] 2.16.840.1.535175.3.579.2.647 1971 Unknown [id number] 2.16.84 0.1.644887.3.579.2.593 1971 Unknown [id number] 2.16.84 0.1.979642.3.579.2.593 1971 Unknown [id number] 2.16.84 0.1.130617.3.579.2.593 1971 Unknown [id number] 2.16.84 0.1.055668.3.579.2.593 1971 Unknown [id number] 2.16.84 0.1.006538.3.579.2.593 1971 Unknown [id number] 2.16.84 0.1.949424.3.579.2.593 1971 Unknown [id number] 2.16.84 0.1.914546.3.579.2.593 1971 Unknown [id number] 2.16.84 0.1.568425.3.579.2.593 1971 Unknown [id number] 2.16.84 0.1.916301.3.579.2.593 1971 Unknown [id number] 2.16.840.1.833948.3.579.2.727 1971 Unknown [id number] 2.16.840.1.695651.3.579.2.727 1971 Unknown [id number] 2.16.840.1.179741.3.579.2.727 1971 Unknown [id number] 2.16.840.1.100302.3.579.2.727 1971 Unknown [id number] 2.16.840.1.026585.3.579.2.727 1971 Unknown [id number] 2.16.840.1.959979.3.579.2.196 1971 Unknown [id number] 2.16.840.1.189022.3.579.2.196 1971 Unknown [id number] 2.16.840.1.081673.3.579.2.1286 1971 Unknown [id number] 2.16.840.1.404704.3.579.2.1286 1971 Unknown [id number] 2.16.840.1.873453.3.579.2.1258 1971 Unknown [id number] 2.16.840.1.107806.3.579.2.1258 1971 Unknown [id number] 2.16.840.1.365667.3.579.2.1258 1971 Unknown [id number] 2.16.840.1.798688.3.579.2.1258 1971 Unknown [id number] 2.16.840.1.772591.3.579.2.1258 1971 Unknown [id number] 2.16.840.1.105918.3.579.2.1258 1971 Unknown [id number] 2.16.840.1.300691.3.579.2.1258 1971 Unknown [id number] 2.16.840.1.461479.3.579.2.1258 1971 Unknown [id number] 2.16.840.1.550620.3.579.2.1258 1971 Unknown [id number] 2.16.840.1.360398.3.579.2.1258 1971 Unknown [id number] 2.16.840.1.695782.3.579.2.1258 1971 Unknown [id number] 2.16.840.1.470497.3.579.2.1258 1971 Unknown [id number] 2.16.840.1.685712.3.579.2.1258 1971 Unknown [id number] 2.16.840.1.010176.3.579.2.1258 1959 Private Health Insurance [id number] 2.16.840.1.226965.19 Unknown Unknown [id number] 2.16.840.1.628756.3.579.2.531 Social History Date Type Detail Facility Unknown if ever smoked [employer] [facility] Start: 08-07-2023 End: 01-22-2025 Sex Assigned At [place] [facility] Start: 06-07-2023 End: 03-18-2024 Tobacco smoking status Heavy tobacco smoker (finding) [facility] Tobacco smoking status Former sm okeless tobacco user, quit more than 30 days ago [facility] Start: 07-24-1985 End: 01-08-2024 Tobacco smoking status [...] Start: 1970 Sex Assigned At Female F [facility] History of tobacco use Passive smoker [facility] Start: 01-22-2025 End: 02-25-2025 Alcoholic beverage intake Ex-drinker (finding) [facility] Start: 02-26-2015 Sex Female (finding) [facility] Start: 02-24-2025 End: 2025 Alcoholic beverage intake Current drinker of alcohol (finding) [facility] Goals Date Patient Goal Desired Activity /State Personal health goal Functional Status Date Assessment Result Facility 01-22-2025 Generalized anxiety disorder 7 item (JESSIKA-7) [facility] 01-22-2025 Patient Health Quest ionnaire 2 item (PHQ-2) [Reported] [facility] 01-22-2025 PHQ-9 quick depressi on assessment panel [Reported.PHQ] [facility] 03-18-2024 Functional Status N/A [facility] 06-07-2023 Functional Status N/A [facility] Clinical Notes 08-30-2021 to 04-03-2025 Eunice Dias, PMHNP-BC - 04/03/2025 9:00 AM Beatrice Marsh, - 04/02/2025 3:00 PM Michael Asif MD - 04/02/2025 3:00 PM Amaury Arana NP - 02/25/2025 12:44 PM EDT Note Date & Type Note Facility 04-03-2025 History of Present illness Narrative Images from the original note were not included. HPI: Talia Rutherford is a 54 y.o. female with a history of Fibromyalgia, gastric bypass (2019), sleep apnea (does not wear CPAP), MDD, JESSIKA, PTSD, and Insomnia. Patient is here today for follow-up via telehealth. Location of patient: Home; located in [place] Location of provider: Office; located in [place], [place] Patient seen via: [employer] [facility]; audio and video utilized Reason for televisit: Transportation issues; Convenience; Access to care Total time spent with patient: 13 minutes Did patient gave verbal consent for today's visit? Yes At patient's last visit on 02/24/25, her Vraylar was increased. She called our office this week stating that she ran out of her Vraylar on Monday. She was then restarted on 1.5 mg of Vraylar and has been on this since Monday. Prior to running out of her medication, she reports that she felt improvement in her mood. She states she still has moments of feeling agitated or irritable. She states her sleep has improved but still has nights where she can't sleep. She states she saw a neurologist about her neck and back recently. She states that she was diagnosed carpal tunnel and is scheduled to have an EEG in the future to confirm this. She is also seeing a surgeon in the future to get a hysterectomy and bladder sling done. She states she feels that there is a lot going on and this is making her stressed. She is recently got established with Rohan ABEL) on March 06 for counseling. She states she has seen her twice and is comfortable with her. She states she plans to continue to see her with the goal of controlling her emotions and anger. SUBJECTIVE: PAST MEDICAL HISTORY: Past Medical [...] breakfast meloxicam (MOBIC) 15 mg, Daily PRN tolterodine LA (DETROL LA) 4 mg, Daily [...] packs/day: 1.00 Average packs/day: 1 pack/day for 39.7 years (39.7 ttl pk-yrs) Types: Cigarettes Start date: 1985 [...] SINDHU Marquez as Nurse Practitioner (Behavioral Health) Rohan Waters LPC as Wrapping Machine Helper (Behavioral Health) PSYCHIATRIC REVIEW OF SYMPTOMS AND MENTAL STATUS EXAM ROS: Patient denies fatigue, malaise, night sweats, weight loss, weight gain, [...] Stable. Appropriate and congruent with mood. Mood Irritable Thought Process Organized, logical, and goal [...] make reasonable life decisions. OBJECTIVE: Visit Vitals Smoking Status Every Day Lab results: 01/14/25 - CBC (Hgb 11.8), B12, Iron, TIBC, Ferritin ASSESSMENT AND PLAN: Impression: Patient's symptoms consistent with MDD, JESSIKA, and PTSD. Initial intake where symptoms and mood disorder questionnaire were reviewed were not consistent with bipolar disorder at this time. Will continue to closely monitor. She has noticed improvement in her rage and anger since starting on Vraylar. She is being restarted on Vraylar and will need to be slowly increased on the dose due to being off of medication for several days. We discussed how to titrate up on medication. She is also aware that she will need to follow-up with other psychological assistant in the future due to medication adjustment and my upcoming maternity leave. She is also aware that she can call the office if she needs samples of Vraylar. I updated nursing staff and Macarena on treatment plan. [place] report checked on 03/31/25 shows she had Ambien filled on 02/21/25 and Gabapentin filled on 03/12/25 through PCP. She has been on Ambien since 2022. Controlled substance agreement reviewed and signed today. UDS to be obtained if she decides to get Ambien prescription through team. She currently gets prescription through PCP. Patient was reminded of my maternity leave that will be occurring this month, as well as coverage, plan for medication refills, and if any concerns arise. Assessment/Plan Diagnoses and all orders for this visit: JESSIKA (generalized anxiety disorder) Severe episode of recurrent major depressive disorder, without psychotic features (HCC) PTSD (post-traumatic stress disorder) Insomnia, unspecified type Fibromyalgia Treatment Plan/Recommendations: - Continue Duloxetine 60 mg in the morning and 30 mg at night for anxiety, depression and history of fibromyalgia. - Start 3 mg of Vraylar tomorrow (04/04/25), and take this daily for 2 weeks. After 2 weeks, increase Vraylar to 4.5 mg daily. - Continue Ambien at night for insomnia. Encouraged to use sparingly for sleep. She continues to get this prescription through her PCP. If she decides to get Ambien through team, she will need UDS prior to prescribing this. - Continue counseling for additional mental health support and treatment. - RTC in 6 weeks with Macarena. Discussed any medication changes and follow-up plan with patient. Encouraged patient to call office sooner if symptoms worsen or if any questions/concerns arise. Patient was seen Televisit - Audio and Visual, Total time spent with patient was 15 minutes, which includes reviewing chart documents, previous notes/records, counseling and discussion with patient and/or coordination of care as described above. documented in this encounter [facility] 04-02-2025 History of Present illness Narrative SUBJECTIVE Chief Complaint: cystocele HPI Ms. Talia Rutherford is a , 54 y.o. female who is referred by Shelia Muniz DO for cystocele. The patient reports history of rectocele repair in 2021 at [facility]. She notes a bulge on a daily basis that has been present for the past month. She does note recent heavy lifting while helping her daughter move. It is described as uncomfortable but is not painful. She notes a prolapse / bulge near the vaginal opening and vaginal pressure. She is not reducing the prolapse to aid in urination or moving her bowels. The patient also reports worsening urgency incontinence. She reports having to change her pad and clothes throughout the day due to incontinence. The patient states she is currently on tolterodine. She denies any stress incontinence. She denies any recent UTI. No change in bowel habits recently. The patient has not tried pelvic floor therapy or pessary previously. Gynecology provider: Dr. Muniz. 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 She is sexually active. Obstetrical history: . Number of vaginal deliveries: 4 Past Medical History: Diagnosis Date Anxiety Depression Fibromyalgia GERD (gastroesophageal reflux disease) Overactive bladder Past Surgical History: Procedure Laterality Date CHOLECYSTECTOMY 1996 FOOT SURGERY Left 2022 GASTRIC BYPASS 2019 INJECTION BLOCK LUMBAR SYMPATHETIC 2013 RECTAL PROLAPSE REPAIR 2023 TUBAL LIGATION 1995 Social History Tobacco Use Smoking status: Every Day Current packs/day: 1.00 Average packs/day: 1 pack/day for 35.0 years (35.0 ttl pk-yrs) Types: Cigarettes Smokeless tobacco: Never Vaping Use Vaping status: Former Substances: Flavoring Substance Use Topics Alcohol use: Yes Drug use: Not Currently Family History Problem Relation Age of Onset Diabetes Mother Hypertension Father Diabetes Father Heart attack Father Stroke Father Breast cancer Maternal Aunt Breast cancer Maternal Grandmother Diabetes Maternal Grandfather Thyroid cancer Paternal Grandmother Colon cancer Neg Hx Ovarian cancer Neg Hx Uterine cancer Neg Hx Current Outpatient Medications: cariprazine (VRAYLAR) 1.5 mg capsule, Take 1 capsule (1.5 mg total) by mouth in the morning., Disp: , Rfl: cyanocobalamin (vitamin B-12) 1000 MCG tablet, Take 1 tablet (1,000 mcg total) by mouth in the morning., Disp: , Rfl: cyclobenzaprine (FLEXERIL) 10 mg tablet, Take 1 tablet (10 mg total) by mouth 3 (three) times a day., Disp: , Rfl: DULoxetine (CYMBALTA) 30 mg capsule, Take 1 capsule (30 mg total) by mouth in the morning., Disp: , Rfl: DULoxetine (CYMBALTA) 60 mg capsule, Take 1 capsule (60 mg total) by mouth in the morning., Disp: , Rfl: estradioL (ESTRACE) 0.01 % (0.1 mg/gram) vaginal cream, Apply pea sized amount ( 1.5 g) to vaginal introitus nightly for 4 weeks then 1-2 times per week thereafte, Disp: 42.5 g, Rfl: 2 fexofenadine (LAYLA) 180 mg tablet, Take 1 tablet (180 mg total) by mouth in the morning., Disp: , Rfl: fluticasone propionate (FLONASE) 50 mcg/actuation nasal spray, Administer 2 sprays into each nostril in the morning., Disp: , Rfl: gabapentin (NEURONTIN) 300 mg capsule, Take 1 capsule (300 mg total) by mouth 3 (three) times a day., Disp: , Rfl: lansoprazole (PREVACID) 30 mg capsule, Take 1 capsule (30 mg total) by mouth every morning before breakfast., Disp: , Rfl: meloxicam (MOBIC) 15 mg tablet, Take 1 tablet (15 mg total) by mouth in the morning., Disp: , Rfl: tolterodine LA (DETROL LA) 4 mg 24 hr capsule, Take 1 capsule (4 mg total) by mouth in the morning., Disp: , Rfl: zolpidem (AMBIEN) 10 mg tablet, Take 1 tablet (10 mg total) by mouth daily as needed., Disp: , Rfl: sod sulf-pot chloride-mag sulf 1.479-0.188- 0.225 gram tablet, See instructional sheet given by office. Patient was given a [employer] [facility] voucher to use, this is not to be ran through patients insurance. (Patient not taking: Reported on 02/06/2025), Disp: 24 tablet, Rfl: 0 ALLERGIES Penicillins Review of Systems Constitutional: Negative for chills, fatigue and fever. HENT: Negative for sore throat. Respiratory: Negative for cough and shortness of breath. Cardiovascular: Negative for chest pain and palpitations. Gastrointestinal: Negative for abdominal pain, constipation, diarrhea, nausea and vomiting. Genitourinary: Positive for difficulty urinating, urgency and vaginal pain. Negative for dysuria, frequency, hematuria, menstrual problem, pelvic pain, vaginal bleeding and vaginal discharge. Musculoskeletal: Negative for back pain. Skin: Negative for rash. Neurological: Negative for dizziness, light-headedness and headaches. All other systems reviewed and are negative. OBJECTIVE VITAL SIGNS BP 98/64 Pulse 83 Ht 166.4 cm (5' 5.5 ) Wt 80.1 kg (176 lb 9.6 oz) BMI 28.94 kg/m PHYSICAL EXAM Constitutional: General: She is not in acute distress. Cardiovascular: Rate: Normal rate. Lower extremity edema: none. Pulmonary: Effort: No respiratory distress, normal effort. Abdominal: General: There is no distension. Palpations: Abdomen is soft. There is no hepatomegaly, splenomegaly or mass. Tenderness: There is no abdominal tenderness. Hernia: No hernia is observable. Musculoskeletal: Gait: normal Skin: General: Skin is warm and dry. Coloration: Skin is not cyanotic or jaundiced. Neurological: Mental Status: She is alert and oriented to person, place, and time. Psychiatric: Mood and Affect: Mood and affect normal. Genitourinary: External exam Vulva and introitus: Normal appearance for age, no lesions, no erythema. Urethra: No prolapse, mass, urethral pain or urethral lesion. Bladder: Not tender, no distention. Bartholin's glands: Normal size, non-tender. Perineum/anus: Normal appearance, no lesions or hemorrhoids. Internal exam Vagina: Mucosa is healthy and pink, no discharge. Skin bridge near posterior fourchette from prior rectocele repair. Cervix: Normal os, no lesions, no cervical motion tenderness. Uterus: Normal size and position, mobile, no tenderness, no masses. Adnexa: Bimanual exam limited per body habitus, ovaries not palpable, no tenderness or masses. Rectum: ARTURO deferred. Anterior Wall +1 Aa Anterior Wall +1 Ba Cervix or Cuff 0 C Genital Hiatus 4 gH Perineal Body 2 pB TVL 7 TVL Posterior Wall -3 Ap Posterior Wall -3 Bp Posterior Fornix -2 D ASSESSMENT/PLAN ICD-10-CM 1. Cystocele with second degree uterine prolapse N81.2 2. History of reconstructive repair of rectocele Z98.890 3. Urge urinary incontinence N39.41 Impression and Plan: On exam, there is an International Continence Society Stage II cystocele and uterine prolapse. We discussed prolapse at length including epidemiology, pathophysiology, risk factors for development, associated symptoms, and treatment options. She was offered expectant management, pelvic floor muscle exercises, pelvic floor physical therapy, pessary trial and surgery. She was provided with written information on pelvic organ prolapse and pessaries from [facility]. Patient would like to proceed with surgical management. Discussed reconstructive approaches. Will have the patient come back for urodynamic testing prior to surgical booking. Margot Marsh DO ObGyn Resident, PGY-3 I attest that I have personally seen and examined this patient and participated in the critical/murphy portions of the service. I was directly involved in the management and treatment plan of the patient. I have reviewed and agree with the resident's evaluation and plan and note as documented in the resident's note. Ms. Rutherford is a 55-year-old, referred for evaluation of prolapse. Bulge became noticeable recently. Noticeable daily. No abnormal bleeding or drainage. Causes discomfort but not pain. Protrudes externally. Worse with prolonged activity and standing. Does not reduce for comfort, voiding, or defecation. She has a history of rectocele repair in 2021. She also notes worsening urge related leakage. No Valsalva related leakage. Some symptoms of overactive bladder. No dysuria, gross hematuria, recurrent urinary tract infections, symptoms of voiding dysfunction. She is on tolterodine. No chronic constipation, chronic diarrhea, fecal incontinence. She is SA. 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 Past Medical History: Diagnosis Date Anxiety Depression Fibromyalgia GERD (gastroesophageal reflux disease) Overactive bladder Past Surgical History: Procedure Laterality Date CHOLECYSTECTOMY 1995 FOOT SURGERY Left 2022 GASTRIC BYPASS 2019 INJECTION BLOCK LUMBAR SYMPATHETIC 2012 RECTAL PROLAPSE REPAIR 2023 TUBAL LIGATION 1995 Current Outpatient Medications Medication Instructions cariprazine (VRAYLAR) 1.5 mg, Daily cyanocobalamin (VITAMIN B-12) 1,000 mcg, Daily cyclobenzaprine (FLEXERIL) 10 mg, 3 times daily DULoxetine (CYMBALTA) 30 mg, Daily DULoxetine (CYMBALTA) 60 mg, Daily estradioL (ESTRACE) 0.01 % (0.1 mg/gram) vaginal cream Apply pea sized amount ( 1.5 g) to vaginal introitus nightly for 4 weeks then 1-2 times per week thereafte fexofenadine (LAYLA) 180 mg, Daily fluticasone propionate (FLONASE) 50 mcg/actuation nasal spray 2 sprays, Daily gabapentin (NEURONTIN) 300 mg, 3 times daily lansoprazole (PREVACID) 30 mg, Every morning before breakfast meloxicam (MOBIC) 15 mg, Daily tolterodine LA (DETROL LA) 4 mg, Daily zolpidem (AMBIEN) 10 mg, Daily PRN Allergies Allergen Reactions Penicillins Hives PE: BP 98/64 Pulse 83 Ht 166.4 cm (5' 5.5 ) Wt 80.1 kg (176 lb 9.6 oz) BMI 28.94 kg/m Alert, NAD Genitourinary: External exam Vulva and introitus: Normal appearance for age, no lesions, no erythema. Urethra: No prolapse, mass, urethral pain or urethral lesion. Bladder: Not tender, no distention. Bartholin's glands: Normal size, non-tender. Perineum/anus: Normal appearance, no lesions or hemorrhoids. Internal exam Vagina: Mucosa is healthy and pink, no discharge. Skin bridge near posterior fourchette from prior rectocele repair. Cervix: Normal os, no lesions, no cervical motion tenderness. Uterus: Normal size and position, mobile, no tenderness, no masses. Adnexa: Bimanual exam limited per body habitus, ovaries not palpable, no tenderness or masses. Rectum: ARTURO deferred. Anterior Wall +1 Aa Anterior Wall +1 Ba Cervix or Cuff 0 C Genital Hiatus 4 gH Perineal Body 2 pB TVL 7 TVL Posterior Wall -3 Ap Posterior Wall -3 Bp Posterior Fornix -2 D A/P: 1. Cystocele with second degree uterine prolapse (Primary) - [facility] - [place], [place] - Measure post void residual 2. History of reconstructive repair of rectocele - [facility] - [place], [place] - Measure post void residual 3. Urge urinary incontinence - [facility] - [place], [place] - Measure post void residual She has and International continence society stage II anterior compartment prolapse, cystocele, and uterine prolapse. We discussed treatment options at length. She was offered conservative management with pelvic floor physical therapy and pessary trial. She declines and desires definitive surgical management. She is going to return for preoperative, reduced, multichannel, urodynamic testing. I think she will be a good candidate for minimally invasive hysterectomy with ohogamiut tissue repair. We will discuss further at her next visit. documented in this encounter [facility] 02-25-2025 History of Present illness Narrative Associated [...] last several weeks, she has seen psychological assistant, meds changed and she is now on [...] of the risks of continued smoking: stroke, IA, all forms of cancer, lung disease, and [...] of the risks of continued smoking: stroke, IA, all forms of cancer, lung disease, and . Options for quitting smoking include: cold turkey, hypnosis, acupuncture, nicotine replacement meds (gum, lozenges, and patches), Buproprion, and Varenicline. At this time pt is encouraged to evaluate their goals for wanting to quit smoking, and reach out to provider when ready to start this process documented in this encounter [facility] 02-25-2025 Instructions Pascale Arana NP - 02/25/2025 11:30 AM EDT Off work RTW date 03/25/25 documented in this encounter [facility] 02-24-2025 History of Present illness Narrative Images [...] is working with the pain specialist at [facility] in hopes to get an epidural in her neck in the future to help with the pain. She is scheduled to see Rohan Waters ([facility]) on [place] [address] to start counseling. She states she is [...] Groves NP as Nurse Practitioner (Family Medicine) HOLLY Marquez as Nurse Practitioner (Behavioral Health) PSYCHIATRIC [...] as described above. documented in this encounter [facility] 02-06-2025 History of Present illness Narrative Subjective [...] mesh was utilized documented in this encounter [facility] 01-22-2025 History of Present illness Narrative HPI: [...] siblings and him having another family in [place]. She describes her mood as sad, anxious, [...] smoking cessation Lunesta - did not work [employer] - doesn't recall how this made her [...] (11) who also lives there. 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 Has been with [employer] for 15 years. She states she is [...] the local ER or call Suicide Hotline (708) for any psychosis, suicidal or homicidal ideation, or with any risk of harm to self or others. Patient was seen Face to Face, Total time spent with patient was 60 minutes, which includes reviewing chart documents, previous notes/records, counseling and discussion with patient and/or coordination of care as described above. documented in this encounter [facility] 01-06-2025 Telephone encounter Note Pt states she was not contacted about her iron infusion can we check with TB about this LA [facility] 01-06-2025 Miscellaneous Notes Pt states she was not contacted about her iron infusion can we check with TB about this LA documented in this encounter [facility] 01-06-2025 History of Present illness Narrative [...] of the risks of continued smoking: stroke, IA, all forms of cancer, lung disease, and [...] of the risks of continued smoking: stroke, IA, all forms of cancer, lung disease, and [...] Current med: pantoprazole documented in this encounter [facility] 01-06-2025 Instructions Pascale Arana NP - 01/06/2025 4:30 PM EDT Discontinue the citalopram Start lamotrigine 1 pill at night for 2 weeks, then increase to 1 pill twice a day after that documented in this encounter [facility] 12-18-2024 Telephone encounter Note Yefrancheska. This is Steve at [facility] calling in regards to 1 of Pascale giraldo's patients. Her name is Talia Gipson, and we need to clarify some orders with her. She is supposed to be coming later today. Give us a call back as soon as possible. [phone], extension [phone], thank you. [facility] 12-18-2024 Miscellaneous Notes Angelofrancheska. This is Steve at [facility] calling in regards to 1 of Pascale giraldo's patients. Her name is Talia Gipson, and we need to clarify some orders with her. She is supposed to be coming later today. Give us a call back as soon as possible. [phone], extension [phone], thank you. documented in this encounter [facility] 11-20-2024 History of Present illness Narrative Associated [...] they will approve Infed, I did contact [facility] 11/19/24 they can order it, [...] nursing note reviewed. Exam conducted with a mirror installer present. Constitutional: General: She is not in [...] and sugary drinks. Pt meets qualifications of [facility] 4731-05-27 for weight loss. BMI>30 or >27 [...] 37.5 MG tablet documented in this encounter [facility] 11-20-2024 Instructions Pascale Arana NP - 11/20/2024 3:20 PM EDT Citalopram: currently on 40mg daily, cut pill in half so only at 20mg dose Stop the lanxoprazole, and will trial pantoprazole 40mg daily GERD and if not better at fu appt we will refer to GI We will call about PAP smear results documented in this encounter [facility] 10-23-2024 History of Present illness Narrative Associated [...] of the risks of continued smoking: stroke, IA, all forms of cancer, lung disease, and [...] of the risks of continued smoking: stroke, IA, all forms of cancer, lung disease, and [...] weight was 206 documented in this encounter [facility] 10-02-2024 History of Present illness Narrative Associated [...] of the risks of continued smoking: stroke, IA, all forms of cancer, lung disease, and [...] of the risks of continued smoking: stroke, IA, all forms of cancer, lung disease, and [...] and sugary drinks. Pt meets qualifications of [facility] 4731-05-27 for weight loss. BMI>30 or >27 [...] weight 200 lbs documented in this encounter [facility] 10-02-2024 Instructions Pascale Arana NP - 10/02/2024 5:00 PM EDT Check labs Mammogram: will send to [place] Schedule PAP documented in this encounter [facility] 09-04-2024 Instructions Angel Luis Groves NP - 09/04/2024 5:00 PM EST Keep up the good work!!! documented in this encounter [facility] 08-14-2024 Telephone encounter Note Patient said her dose was increased and now she is out of this medication. Can you please refill. JN [facility] 08-14-2024 Miscellaneous Notes Patient said her dose was increased and now she is out of this medication. Can you please refill. ANAYELI documented in this encounter [facility] 08-12-2024 History of Present illness Narrative Associated [...] of the risks of continued smoking: stroke, IA, all forms of cancer, lung disease, and [...] of the risks of continued smoking: stroke, IA, all forms of cancer, lung disease, and [...] SUPERFICIAL WOUND (HTRX) documented in this encounter [facility] 08-12-2024 Instructions Pascale Arana NP - 08/12/2024 4:00 PM EST Z pack, finish this Fluids, rest Cont layla and we will add flonase nasal spray Warm compress to affected area, will treat based on culture report documented in this encounter [facility] 07-31-2024 History of Present illness Narrative Associated [...] 37.5 MG tablet documented in this encounter [facility] 07-31-2024 Instructions Angel Luis Groves NP - 07/31/2024 3:00 PM EST Notify office with any symptoms of chest pain, dyspnea, heart palpitations, or any anxiety symptoms. F/U in 4 weeks to document weight loss. Increase physical activity as tolerated, and lower caloric intake to 1600 calories daily if no contraindications. documented in this encounter [facility] 07-24-2024 History of Present illness Narrative Images [...] This Visit Bipolar disorder with severe depression (CMS/[facility]) Relevant Medications citalopram (CeleXA) 40 MG tablet [...] if no contraindications. documented in this encounter [facility] 06-03-2024 Telephone encounter Note Pt takes the 60mg in morning and 30 mg in the afternoon, so both. [facility] 06-03-2024 Miscellaneous Notes Pt takes the 60mg in morning and 30 mg in the afternoon, so both. Patient is asking for a 90 day supply. Patient said 60 mg were denied. documented in this encounter [facility] 06-03-2024 Telephone encounter Note Patient is asking for a 90 day supply. Patient said 60 mg were denied. [facility] 04-10-2024 History of Present illness Narrative Associated [...] has since resolved. documented in this encounter [facility] 03-13-2024 History of Present illness Narrative Associated [...] ABDOMINAL PAIN. PT SCHEDULED TO SEE GI [facility] ON 03/18 AT 1500. ). HPI IS here today for one week follow-up for constipation. Prescrivbed lacutlose at last visit-did not citrus picker. Went on vacation to in [facility] in [place] for the weekend and had X3 BM's. Denies blood in stool. States she has been stressed recentlty and feels being away heloped her relax and she was finally able to pass BM. Sees GI in [place] on Sunday 03/18 @ 3pm. Still has [...] GI next week. documented in this encounter [facility] 03-12-2024 Instructions Angel Luis Groves NP - 03/12/2024 3:30 PM EDT Referral sent to Rheumatology- Dr. Muller in [place], [place]- they will call you! Have mammogram completed. Call if you need anything! documented in this encounter [facility] 06-07-2023 Note Chief Complaint consultation for colonoscopy [...] fibromyalgia, referred for severe anemia, admitted to [facility] in January with hb of 5; [...] 06/07/23Ferritin 06/07/23Vitamin B12 Level 06/07/23 [facility] [place] 04-07-2023 Note Cardiology Clinic No te Subjective [...] exacerbated (more content not included)... [facility] 04-07-2023 Note Patient here for 2 [...] systems reviewed and are negative. [facility] 02-08-2023 Note Cardiovascular Medic [facility] SUBJECTIVE Chief Complaint Patient presents with Establish [...] about 6 weeks (around 03/22/2023). Carol Webb APRN-[facility] Cardiovascular Medicine [facility] 05-31-2022 Note PROCEDURE: XR FOOT L [...] authenticated by: TAMIKO NETTLES Date: 2022-05-31 20:30 [facility] 05-11-2022 Note PROCEDURE: XR FOOT L T [...] by: ELLIOT JOSE Date: 2022-05-11 16:14 [facility] 04-19-2022 Note PROCEDURE: XR FOOT L [...] by: TAMIKO NETTLES Date: 2022-04-19 18:16 [facility] 03-30-2022 Note PROCEDURE: XR FOOT L [...] by: TAMIKO NETTLES Date: 2022-03-30 06:41 [facility] 03-11-2022 Note PROCEDURE: XR FOOT L [...] by: ELLIOT JOSE Date: 2022-03-11 08:26 [facility] 03-11-2022 Note PROCEDURE: XR FOOT L T 2V HISTORY: Pain COMPARISON: XR foot left 02/09/2022 FINDINGS: BONES:Multiple intraoperative images demonstrate mechanical fusion of the second and third tarsal-metatarsal joints. SOFT TISSUES:Expected intraoperative findings. EFFUSION:None visible. OTHER: Negative. IMPRESSION: 1. Mechanical fusion of second and third tarsal-metatarsal joints. Electronically authenticated by: ELLIOT JOSE Date: 2022-03-11 07:55 [facility] 02-10-2022 Note PROCEDURE: XR FOOT L T MIN 3 VIEWS COMPARISON: 12/15/2020 HISTORY: Pain FINDINGS: BONES:No acute fracture or dislocation. Stable moderate degenerative changes most significant at the tarsometatarsal joints. Moderate plantar enthesopathic spurring of the calcaneus SOFT TISSUES:Negative. No visible soft tissue swelling. EFFUSION:None visible. OTHER: Negative. IMPRESSION: Stable moderate degenerative changes Electronically authenticated by: TAMIKO NETTLES Date: 2022-02-10 07:37 [facility] 08-30-2021 Evaluation note Encounter Date Diagnosis [...] Patient care instructions given in writting by [facility] Care At Home document [employer] Other Evaluation note* Diagnosis Bipolar disorder with severe depression (CMS/HCC) documented in this encounter [facility] HealthcareEvaluation noteNo assessment information [facility] Work Phone: Evaluation note* Diagnosis [...] Primary Screening for diabetes mellitus Seizure-like activity ([facility]) Fluid level behind tympanic membrane of both [...] in full remission, most recent episode depressed ([facility]) Psychophysiological insomnia Persistent disorder of initiating or maintaining sleep B12 deficiency Fibromyalgia Unspecified myalgia and myositis Screening mammogram for breast cancer Bipolar disorder, current episode depressed, severe, without psychotic features ([facility]) Psychophysiological insomnia Persistent disorder of initiating or maintaining sleep Fibromyalgia Unspecified myalgia and myositis Iron deficiency anemia secondary to inadequate dietary iron intake B12 deficiency B12 deficiency- Primary Bipolar disorder, current episode depressed, severe, without psychotic features ([facility]) Psychophysiological insomnia Persistent disorder of initiating or [...] gastric bypass Bipolar disorder with severe depression ([facility]) Encounter for screening mammogram for breast cancer- Primary Screening for diabetes mellitus Seizure-like activity ([facility]) Fluid level behind tympanic membrane of both [...] Primary Screening for diabetes mellitus Seizure-like activity ([facility]/HCC) Fluid level behind tympanic membrane of both [...] in full remission, most recent episode depressed ([facility]) Psychophysiological insomnia Persistent disorder of initiating or maintaining sleep B12 deficiency Fibromyalgia Unspecified myalgia and myositis Screening mammogram for breast cancer Bipolar disorder, current episode depressed, severe, without psychotic features ([facility]/HCC) Psychophysiological insomnia Persistent disorder of initiating or maintaining sleep Fibromyalgia Unspecified myalgia and myositis Iron deficiency anemia secondary to inadequate dietary iron intake B12 deficiency B12 deficiency- Primary Bipolar disorder, current episode depressed, severe, without psychotic features ([facility]/HCC) Psychophysiological insomnia Persistent disorder of initiating or [...] gastric bypass Bipolar disorder with severe depression ([facility]/HCC) Encounter for screening mammogram for breast cancer- Primary Screening for diabetes mellitus Seizure-like activity ([facility]) Fluid level behind tympanic membrane of both [...] Primary Screening for diabetes mellitus Seizure-like activity ([facility]) Fluid level behind tympanic membrane of both [...] 33.0-33.9,adult- Primary Bipolar disorder with severe depression ([facility]) Fibromyalgia Unspecified myalgia and myositis Gastro-esophageal reflux [...] of tympanic membranes documented in this encounter [facility] HealthcareEvaluation note* Diagnosis Breast screening- Primary [...] Primary Screening for diabetes mellitus Seizure-like activity ([facility]) Fluid level behind tympanic membrane of both [...] Primary Screening for diabetes mellitus Seizure-like activity ([facility]/HCC) Fluid level behind tympanic membrane of both [...] female genital organ documented in this encounter [facility] HealthcareEvaluation note* Diagnosis Breast screening- Primary [...] whether esophagitis present documented in this encounter [facility] HealthcareEvaluation note* Diagnosis Breast screening- Primary [...] unspecified site Bipolar disorder with severe depression ([facility]/HCC) Antibiotic-induced yeast infection Cutaneous abscess of groin B12 deficiency- Primary Psychophysiological insomnia Persistent disorder of initiating or maintaining sleep Iron deficiency anemia secondary to inadequate dietary iron intake History of gastric bypass Bipolar disorder with severe depression ([facility]/HCC) Encounter for screening mammogram for breast cancer- Primary Screening for diabetes mellitus Seizure-like activity ([facility]) Fluid level behind tympanic membrane of both [...] in full remission, most recent episode depressed ([facility]) Psychophysiological insomnia Persistent disorder of initiating or maintaining sleep B12 deficiency Fibromyalgia Unspecified myalgia and myositis Screening mammogram for breast cancer Bipolar disorder with severe depression ([facility]/HCC)- Primary Psychophysiological insomnia Persistent disorder of initiating [...] of tympanic membranes documented in this encounter [facility] HealthcareEvaluation note* Diagnosis Breast screening- Primary [...] Primary Screening for diabetes mellitus Seizure-like activity ([facility]/HCC) Fluid level behind tympanic membrane of both [...] gastric bypass Bipolar disorder with severe depression ([facility]) Encounter for screening mammogram for breast cancer- Primary Screening for diabetes mellitus Seizure-like activity ([facility]) Fluid level behind tympanic membrane of both [...] of tympanic membranes documented in this encounter [facility] HealthcareEvaluation note* Diagnosis Breast screening- Primary [...] Primary Screening for diabetes mellitus Seizure-like activity ([facility]) Fluid level behind tympanic membrane of both [...] gastric bypass Bipolar disorder with severe depression ([facility]) Encounter for screening mammogram for breast cancer- Primary Screening for diabetes mellitus Seizure-like activity ([facility]) Fluid level behind tympanic membrane of both [...] for drug screening documented in this encounter [facility] HealthcareEvaluation note* Diagnosis Breast screening- Primary [...] of tympanic membranes documented in this encounter [facility] HealthcareEvaluation note* Diagnosis Cystocele with second degree uterine prolapse- Primary History of reconstructive repair of rectocele Urge urinary incontinence Urge incontinence Incomplete emptying of bladder Incomplete bladder emptying Atrophic vaginitis Postmenopausal atrophic vaginitis [facility]* Diagnosis Breast screening- Primary Breast [...] stress disorder documented in this encounter [facility]* Diagnosis Onset Date Resolution Status Admit Date Cervical stenosis of spine acute March 25, 2025 8:29am [facility] Work Phone: Evaluation note* Diagnosis Breast screening- [...] stress disorder documented in this encounter [facility] HealthcareEvaluation note* [...] disorder) Posttraumatic stress disorder Insomnia, unspecified type Fibromyalgia Unspecified myalgia and myositis documented in this encounter [facility] HealthcareEvaluation note* Diagnosis Cystocele with second degree uterine prolapse- Primary History of reconstructive repair of rectocele Urge urinary incontinence Urge incontinence [facility]* Diagnosis Breast screening- Primary Breast [...] Description Date Medical History anxiety Medical History Attune Other Hospital course Narrative No data available for this section General Surgery [facility] Discharge instructions No data available for this section General Surgery [facility] Instructions* Attachments The following attachments cannot be sent through Care Everywhere. * Pelvic floor muscle exercises (Syrian) documented in this encounter[facility] SystemInstructionsNot on file documented in this encounterProKIHEITAI SystemInstructionsNot on file documented in this encounterProKIHEITAI SystemProgress note No data available for this section General Surgery [facility] Reason for referral (narrative)* Consultation (Routine) - Pending Review Specialty Diagnoses / Procedures Referred By Carlos white Referred To Contact Rheumatology Diagnoses Fibromyalgia Procedures PA OFFICE/OUTPATIENT NEW [facility]IGH [facility] 60 MINUTES Angel Luis Groves NP [address] [place] [address] Tyson Collazo MD [address] [place] [address] Referral ID Status Reason Start Date Expiration Date Visits Requested Visits Authorized [id number] Pending Review Specialty Services Required 03/13/2024 09/09/2024 1 1 Scheduling Instructions Please include OV note from today And labs from [facility]/28/2023 [facility]narrative)No reason for referral [facility] Work Phone: Reason for visit Narrative* Consultation (Routine) - Closed Specialty Diagnoses / Procedures Referred By Contact Referred To Contact Urogynecology / Gynecology Diagnoses Cystocele with second degree uterine prolapse History of reconstructive repair of rectocele Urge urinary incontinence Shelia Muniz DO [address] [place] [address] Phone: tel:[phone] fax:[phone] Jovon Asif MD [address], [address] [address] Phone: tel:[phone] fax:[phone] Referral ID Status Reason Start Date Expiration Date V isits Requested Visits Authorized [id number] Closed Specialty Services Required 02/06/2025 02/06/2026 1 1 [facility] [employer] [facility] Summary Purpose Family History Relationship Condition Age at Onset Recorded Date/T arlet father Diabetes mellitus Unknown History of stroke Unknown Hypertension Unknown Heart disease Unknown Unknown mother Unknown Diabetes mellitus Unknown Advance Directives Advance Directive Response Recorded Date/ Time Advance Directives No March 1:42pm Advance Directive Response Recorded Date/ Time Advance Directives No March 7:38pm Chief Complaint and Reason for Visit Chief Complaint Admit Date Spinal stenosis, cervical region Septemb 2024 8:29am Reason for Visit Admit Date Cervical stenosis of spine March 8:29am Additional Source Comments INFORMATION SOURCE (unrecogn ized section and content) DATE CREATED AUTHOR 11/16/2018 [facility] DATE CREATED AUTHOR AUTHOR'S ORGANIZ ATION 06/05/2022 [facility] DATE CREATED AUTHOR AUTHOR'S ORGANIZ ATION 04/09/2023 [facility] DATE CREATED AUTHOR AUTHOR'S ORGANIZ ATION 03/20/2024 [facility] DATE CREATED AUTHOR AUTHOR'S ORGANIZ ATION 04/29/2024 [facility] DATE CREATED AUTHOR AUTHOR'S ORGANIZ ATION 03/16/2025 [facility] DATE CREATED AUTHOR AUTHOR'S ORGANIZ ATION 2025 [facility] DATE CREATED AUTHOR AUTHOR'S ORGANIZ ATION 04/11/2025 [facility] d[facility] Specialists EPIC REASON FOR VISIT (unrecogniz [...] Bipolar disorder with severe depression (HCC) Procedures PA OFFICE/OUTPATIENT NEW HIGH [facility] 60 MINUTES Pascale Arana, MARY JO [address] [place] [address] Phone: tel: fax: Eunice Dias, [facility] [address] [place] [address] Phone: tel: fax: Referral ID Status Reason Start Date Expiration Date V isits Requested Visits Authorized [id number] Closed Specialty Services Required 01/06/2025 07/05/2025 1 1 Reason Comments New Patient New Patient presents for evaluation of a possible rectocele. Reason Comments Med Management Follow-up Reason Comments Bipolar disorder with severe depression Reason Comments Anxiety Depression PTSD (Post-Traumatic Stress Disorder) Reason Comments Follow-up Med Management Sleeping Problem PTSD (Post-Traumatic Stress Disorder) Anxiety Reason Comments Depression Anxiety PTSD (Post-Traumatic Stress Disorder) Patient Care team informatio n (unrecognized section and content) Sanitation Technician Relationship Specialty Start Date End Date Shaikh Main MD PCP - General Internal Medicine 04/20/23 Team Status: Active Member Role Status Dates Conrad Ahn DO Attending Provider Active Sta rt: February 26, 2024 Team Status: Inactive Member Role Status Dates Tyson Collazo MD Attending Provider Active St art: April 18, 2024 End: April 18, 2024 Sanitation Technician Relationship Specialty Start Date End Date Molina De Anda MD [address] [place] [address] PCP - General Family Medicine 02/21/24 Angel Luis Groves NP [address] [place] [address] Nurse Practitioner Family Medicine 02/21/24 Sanitation Technician Relationship Specialty Start Date End Date Molina De Anda MD [address] [place] [address] PCP - General Family Medicine 02/21/24 Angel Luis Groves NP [address] [place] [address] Nurse Practitioner Family Medicine 02/21/24 Sanitation Technician Relationship Specialty Start Date End Date Molina De Anda MD [address] [place] [address] PCP - General Family Medicine 02/21/24 Angel Luis Groves NP [address] [place] [address] Nurse Practitioner Family Medicine 02/21/24 Sanitation Technician Relationship Specialty Start Date End Date Molina De Anda MD [address] [place] [address] PCP - General Family Medicine 02/21/24 Angel Luis Groves NP [address] [place] [address] Nurse Practitioner Family Medicine 02/21/24 Sanitation Technician Relationship Specialty Start Date End Date Molnia De Anda MD [address] [place] [address] PCP - General Family Medicine 02/21/24 Angel Luis Groves NP [address] [place] [address] Nurse Practitioner Family Medicine 02/21/24 Sanitation Technician Relationship Specialty Start Date End Date Molina De Anda MD [address] [place] [address] PCP - General Family Medicine 02/21/24 Angel Luis Groves NP [address] [place] [address] Nurse Practitioner Family Medicine 02/21/24 Sanitation Technician Relationship Specialty Start Date End Date Molina De Anda MD [address] [place] [address] PCP - General Family Medicine 02/21/24 Angel Luis Groves NP [address] [place] [address] Nurse Practitioner Family Medicine 02/21/24 Sanitation Technician Relationship Specialty Start Date End Date Molina De Anda MD [address] [place] [address] PCP - General Family Medicine 02/21/24 Angel Luis Groves NP [address] [place] [address] Nurse Practitioner Family Medicine 02/21/24 Sanitation Technician Relationship Specialty Start Date End Date Molina De Anda MD [address] [place] [address] PCP - General Family Medicine 02/21/24 Angel Luis Groves NP [address] [place] [address] Nurse Practitioner Family Medicine 02/21/24 Sanitation Technician Relationship Specialty Start Date End Date Molina De Anda MD [address] [place] [address] PCP - General Family Medicine 02/21/24 Angel Luis Groves NP [address] [place] [address] Nurse Practitioner Family Medicine 02/21/24 Sanitation Technician Relationship Specialty Start Date End Date Molina De Anda MD [address] [place] [address] PCP - General Family Medicine 02/21/24 Angel Luis Groves NP [address] [place] [address] Nurse Practitioner Family Medicine 02/21/24 Sanitation Technician Relationship Specialty Start Date End Date Molina De Anda MD [address] [place] [address] PCP - General Family Medicine 02/21/24 Angel Luis Groves NP [address] [place] [address] Nurse Practitioner Family Medicine 02/21/24 Sanitation Technician Relationship Specialty Start Date End Date Molina De Anda MD [address] [place] [address] PCP - General Family Medicine 02/21/24 Angel Luis Groves NP [address] [place] [address] Nurse Practitioner Family Medicine 02/21/24 Sanitation Technician Relationship Specialty Start Date End Date Molina De Anda MD [address] [place] [address] PCP - General Family Medicine 02/21/24 Angel Luis Groves NP [address] [place] [address] Nurse Practitioner Family Medicine 02/21/24 Sanitation Technician Relationship Specialty Start Date End Date Molina De Anda MD [address] [place] [address] PCP - General Family Medicine 02/21/24 Angel Luis Groves NP [address] [place] [address] Nurse Practitioner Family Medicine 02/21/24 Sanitation Technician Relationship Specialty Start Date End Date Molina De Anda MD [address] [place] [address] PCP - General Family Medicine 02/21/24 Angel Luis Groves NP [address] [place] [address] Nurse Practitioner Family Medicine 02/21/24 Sanitation Technician Relationship Specialty Start Date End Date Molina De Anda MD [address] [place] [address] PCP - General Family Medicine 02/21/24 Angel Luis Groves NP [address] [place] [address] Nurse Practitioner Family Medicine 02/21/24 Sanitation Technician Relationship Specialty Start Date End Date Molina De Anda MD [address] [place] [address] PCP - General Family Medicine 02/21/24 Angel Luis Groves NP [address] [place] [address] Nurse Practitioner Family Medicine 02/21/24 Sanitation Technician Relationship Specialty Start Date End Date Molina De Anda MD [address] [place] [address] PCP - General Family Medicine 02/21/24 Angel Luis Groves NP [address] [place] [address] Nurse Practitioner Family Medicine 02/21/24 Sanitation Technician Relationship Specialty Start Date End Date Molina De Anda MD [address] [place] [address] PCP - General Family Medicine 02/21/24 Angel Luis Groves NP [address] [place] [address] Nurse Practitioner Family Medicine 02/21/24 Sanitation Technician Relationship Specialty Start Date End Date Molina De Anda MD [address] [place] [address] PCP - General Family Medicine 02/21/24 Angel Luis Groves NP [address] [place] [address] Nurse Practitioner Family Medicine 02/21/24 Sanitation Technician Relationship Specialty Start Date End Date Molina De Anda MD [address] [place] [address] PCP - General Family Medicine 02/21/24 Angel Luis Groves NP [address] [place] [address] Nurse Practitioner Family Medicine 02/21/24 Sanitation Technician Relationship Specialty Start Date End Date Molina De Anda MD [address] [place] [address] PCP - General Family Medicine 02/21/24 Angel Luis Groves NP [address] [place] [address] Nurse Practitioner Family Medicine 02/21/24 Sanitation Technician Relationship Specialty Start Date End Date Molina De Anda MD [address] [place] [address] PCP - General Family Medicine 02/21/24 Angel Luis Groves NP [address] [place] [address] Nurse Practitioner Family Medicine 02/21/24 Sanitation Technician Relationship Specialty Start Date End Date Molina De Anda MD [address] [place] [address] PCP - General Family Medicine 02/21/24 Angel Luis Groves NP [address] [place] [address] Nurse Practitioner Family Medicine 02/21/24 Sanitation Technician Relationship Specialty Start Date End Date Molina De Anda MD [address] [place] [address] PCP - General Family Medicine 02/21/24 Angel Luis Groves NP [address] [place] [address] Nurse Practitioner Family Medicine 02/21/24 Sanitation Technician Relationship Specialty Start Date End Date Molina De Anda MD [address] [place] [address] PCP - General Family Medicine 02/21/24 Angel Luis Groves NP [address] [place] [address] Nurse Practitioner Family Medicine 02/21/24 Sanitation Technician Relationship Specialty Start Date End Date Molina De Anda MD [address] [place] [address] PCP - General Family Medicine 02/21/24 Angel Luis Groves NP [address] [place] [address] Nurse Practitioner Family Medicine 02/21/24 Sanitation Technician Relationship Specialty Start Date End Date Molina De Anda MD [address] [place] [address] PCP - General Family Medicine 02/21/24 Angel Luis Groves NP [address] [place] [address] Nurse Practitioner Family Medicine 02/21/24 Sanitation Technician Relationship Specialty Start Date End Date Molina De Anda MD [address] [place] [address] PCP - General Family Medicine 02/21/24 Angel Luis Groves NP [address] [place] [address] Nurse Practitioner Family Medicine 02/21/24 Sanitation Technician Relationship Specialty Start Date End Date Molina De Anda MD [address] [place] [address] PCP - General Family Medicine 02/21/24 Angel Luis Groves NP [address] [place] [address] Nurse Practitioner Family Medicine 02/21/24 Sanitation Technician Relationship Specialty Start Date End Date Molina De Anda MD [address] [place] [address] PCP - General Family Medicine 02/21/24 Angel Luis Groves NP [address] [place] [address] Nurse Practitioner Family Medicine 02/21/24 Sanitation Technician Relationship Specialty Start Date End Date Molina De Anda MD [address] [place] [address] PCP - General Family Medicine 02/21/24 Angel Luis Groves NP [address] [place] [address] Nurse Practitioner Family Medicine 02/21/24 Sanitation Technician Relationship Specialty Start Date End Date Molina De Anda MD [address] [place] [address] PCP - General Family Medicine 02/21/24 Angel Luis Groves NP [address] [place] [address] Nurse Practitioner Family Medicine 02/21/24 Sanitation Technician Relationship Specialty Start Date End Date Molina De Anda MD [address] [place] [address] PCP - General Family Medicine 02/21/24 Angel Luis Groves NP [address] [place] [address] Nurse Practitioner Family Medicine 02/21/24 Sanitation Technician Relationship Specialty Start Date End Date Molina De Anda MD [address] [place] [address] PCP - General Family Medicine 02/21/24 Angel Luis Groves NP [address] [place] [address] Nurse Practitioner Family Medicine 02/21/24 Sanitation Technician Relationship Specialty Start Date End Date Molina De Anda MD [address] [place] [address] PCP - General Family Medicine 02/21/24 Angel Luis Groves NP [address] [place] [address] Nurse Practitioner Family Medicine 02/21/24 Sanitation Technician Relationship Specialty Start Date End Date Molina De Anda MD [address] [place] [address] PCP - General Family Medicine 02/21/24 Angel Luis Groves NP [address] [place] [address] Nurse Practitioner Family Medicine 02/21/24 Sanitation Technician Relationship Specialty Start Date End Date Molina De Anda MD [address] [place] [address] PCP - General Family Medicine 02/21/24 Angel Luis Groves, MARY JO [address] [place] [address] Nurse Practitioner Family Medicine 02/21/24 Sanitation Technician Relationship Specialty Start Date End Date Molina De Anda MD [address] [place] [address] PCP - General Family Medicine 02/21/24 Angel Luis Groves NP [address] [place] [address] Nurse Practitioner Family Medicine 02/21/24 [facility] [address] [facility] [address] [place] [address] Nurse Practitioner Behavioral Health 01/22/25 Sanitation Technician Relationship Specialty Start Date End Date Molina De Anda MD [address] [place] [address] PCP - General Family Medicine 02/21/24 Angel Luis Groves NP [address] [place] [address] Nurse Practitioner Family Medicine 02/21/24 Eunice Dias, [facility] [address] [facility] [address] [place] [address] Nurse Practitioner Behavioral Health 01/22/25 Sanitation Technician Relationship Specialty Start Date End Date Molina De Anda MD [address] [place] [address] PCP - General Family Medicine 02/21/24 Angel Luis Groves, MARY JO [address] [place] [address] Nurse Practitioner Family Medicine 02/21/24 Eunice Dias [facility] [address] [facility] [address] [place] [address] Nurse Practitioner Behavioral Health 01/22/25 Sanitation Technician Relationship Specialty Start Date End Date No Pcp, [place] [address] PCP - General Family Medicine 11/21/18 Sanitation Technician Relationship Specialty Start Date End Date Molina De Anda MD [address] [place] [address] PCP - General Family Medicine 02/21/24 Angel Luis Groves NP [address] [place] [address] Nurse Practitioner Family Medicine 02/21/24 Eunice Dias [facility] [address] [facility] [place] [address] Nurse Practitioner Behavioral Health 01/22/25 Sanitation Technician Relationship Specialty Start Date End Date Molina De Anda MD [address] [place] [address] PCP - General Family Medicine 02/21/24 Angel Luis Groves NP [address] [place] [address] Nurse Practitioner Family Medicine 02/21/24 Eunice Dias [facility] [address] [facility] [address] [place] [address] Nurse Practitioner Behavioral Health 01/22/25 Sanitation Technician Relationship Specialty Start Date End Date Molina De Anda MD [address] [place] [address] PCP - General Family Medicine 02/21/24 Angel Luis Groves NP [address] [place] [address] Nurse Practitioner Family Medicine 02/21/24 [facility] [address] [facility] [place] [address] Nurse Practitioner Behavioral Health 01/22/25 Sanitation Technician Relationship Specialty Start Date End Date Molina De Anda MD [address] [place] [address] PCP - General Family Medicine 02/21/24 Angel Luis Groves NP [address] [place] [address] Nurse Practitioner Family Medicine 02/21/24 [facility] [address] [facility] [place] [address] Nurse Practitioner Behavioral Health 01/22/25 Sanitation Technician Relationship Specialty Start Date End Date Molina De Anda MD [address] [place] [address] PCP - General Family Medicine 02/21/24 Angel Luis Groves NP [address] [place] [address] Nurse Practitioner Family Medicine 02/21/24 Eunice Dias [facility] [address] [facility] [address] [place] [address] Nurse Practitioner Behavioral Health 01/22/25 Sanitation Technician Relationship Specialty Start Date End Date No Pcp, [place] [address] PCP - General Family Medicine 11/21/18 Sanitation Technician Relationship Specialty Start Date End Date Molina De Anda MD [address] [place] [address] PCP - General Family Medicine 02/21/24 Angel Luis Groves, MARY JO [address] [place] [address] Nurse Practitioner Family Medicine 02/21/24 Eunice Dias [facility] [address] [facility] [place] [place] [address] Nurse Practitioner Behavioral Health 01/22/25 Sanitation Technician Relationship Specialty Start Date End Date Molina De Anda MD [address] [place] [address] PCP - General Family Medicine 02/21/24 Angel Luis Groves, AUTOMATIC EDGER [address] [place] [address] Nurse Practitioner Family Medicine 02/21/24 Eunice Dias [facility] [address] [facility] [place] [address] Nurse Practitioner Behavioral Health 01/22/25 Sanitation Technician Relationship Specialty Start Date End Date Molina De Anda MD [address] [place] [address] PCP - General Family Medicine 02/21/24 Angel Luis Groves, MARY JO [address] [place] [address] Nurse Practitioner Family Medicine 02/21/24 [facility] [address] [facility] [place] [address] Nurse Practitioner Behavioral Health 01/22/25 Sanitation Technician Relationship Specialty Start Date End Date Molina De Anda MD [address] [place] [address] PCP - General Family Medicine 02/21/24 Angel Lusi Groves, MARY JO [address] [place] [address] Nurse Practitioner Family Medicine 02/21/24 [facility] [address] [facility] [place] [address] Nurse Practitioner Behavioral Health 01/22/25 Rohan Waters LPC Wrapping Machine Helper Behavioral Health 03/06/25 Team Status: Active Member Role Status Dates Pascale Arana Primary Care Provider Active Team Status: Inactive Member Role Status Dates Shun Arshad MD Attending Provider Active Star t: March 25, 2025 End: March 25, 2025 Pascale Arana Primary Care Provider Active Sta rt: March 25, 2025 End: March 25, 2025 Sanitation Technician Relationship Specialty Start Date End Date Molina De Anda MD PCP - General Family Medicine 02/21/24 Angel Luis Groves, MARY JO Nurse Practitioner Family Medicine 02/21/24 Eunice Dias [facility] [address] [facility] [address] [place] [address] Nurse Practitioner Behavioral Health 01/22/25 Rohan Waters LPC Wrapping Machine Helper Behavioral Health 03/06/25 Sanitation Technician Relationship Specialty Start Date End Date Molina De Anda MD PCP - General Family Medicine 02/21/24 Angel Luis Groves NP Nurse Practitioner Family Medicine 02/21/24 Eunice Dias [facility] [address] [facility] [address] [place] [address] Nurse Practitioner Behavioral Health 01/22/25 Rohan Waters LPC Wrapping Machine Helper Behavioral Health 03/06/25 Sanitation Technician Relationship Specialty Start Date End Date Molina De Anda MD PCP - General Family Medicine 02/21/24 Angel Luis Groves, MARY JO Nurse Practitioner Family Medicine 02/21/24 Eunice Dias [facility] [address] [facility] [address] [place] [address] Nurse Practitioner Behavioral Health 01/22/25 Rohan Waters LPC Wrapping Machine Helper Behavioral Health 03/06/25 Sanitation Technician Relationship Specialty Start Date End Date Pascale Arana, BAIL AGENT-SENIOR MEDICAL TECHNOLOGIST [address] [place] [address] PCP - General Nurse Practitioner 04/02/25 Sanitation Technician Relationship Specialty Start Date End Date Molina De Anda MD PCP - General Family Medicine 02/21/24 Angel Luis Groves NP Nurse Practitioner Family Medicine 02/21/24 [facility] [address] [address] [place] [address] Nurse Practitioner Behavioral Health 01/22/25 Rohan Waters LPC Wrapping Machine Helper Behavioral Health 03/06/25 Sanitation Technician Relationship Specialty Start Date End Date Molina De Anda MD PCP - General Family Medicine 02/21/24 Angel Luis Groves NP Nurse Practitioner Family Medicine 02/21/24 Eunice Dias [facility] [address] [address] [place] [address] Nurse Practitioner Behavioral Health 01/22/25 Rohan Waters LPC Wrapping Machine Helper Behavioral Health 03/06/25 Goals (unrecognized section and [...] BE BASED ON THE PRIMARY CLINICAL RECORDS. [employer] [facility]. provides no warranty or guarantee of the accuracy or completeness of information in this document.
--- NOTE | 2025-04-17 15:47 | PM.CN ---
Consult Note: HPI Data of Consult Patient: known to practice within the last 3 years Requesting Physician: Flory Payne NP Primary Care Provider: Pascale Arana NP Consult Narrative Reason for consult: neck and low back pain Narrative: Talia Mercado a pleasant 55 year old female presents for evaluation of chronic neck and low back pain. Pt was recently evaluated by Dr Arshad per pt request for cervical and lumbar spine, Dr Arshad recommending cervical facet injections for cspine pain and right piriformis injection for low back pain. Pt has failed to benefit from > 6 weeks of PT/HEP, heat, ice, tylenol, NSAIDs. cervical mri and lumbar mri consistent for degenerative changes and mild to moderate stenosis. pt underwent right C5-6 C6-7 TFESI with >50% improvement, no longer noting RUE pain/weakness and neck pain well controlled. pain in neck 0/10 intermittently 6/10. Pain in low back 5/10 sharp shooting, increasing to 10/10 with standing, sitting, stretching, lifting, bending, stairs, activity. notes improvement with standing and lying. cc:: CC: Flory Payne NP Review of Systems ROS Musculoskeletal Reports: back pain; Denies: neck pain [facility] Medical History Overactive bladder ?N32.81 - Overactive bladder (ICD-10) Obesity ?E66.9 - Obesity, unspecified (ICD-10) Nicotine dependence ?F17.200 - Nicotine dependence, unspecified, uncomplicated (ICD-10) History of cystocele ?Z87.448 - Personal history of other diseases of urinary system (ICD-10) PVD (peripheral vascular disease) ?I73.9 - Peripheral vascular disease, unspecified (ICD-10) Iron deficiency anemia ?D50.9 - Iron deficiency anemia, unspecified (ICD-10) Fibromyalgia ?M79.7 - Fibromyalgia (ICD-10) Bipolar disorder ?F31.9 - Bipolar disorder, unspecified (ICD-10) UGIB (upper gastrointestinal bleed) ?K92.2 - Gastrointestinal hemorrhage, unspecified (ICD-10) Anxiety with depression ?F41.8 - Other specified anxiety disorders (ICD-10) Gastro-esophageal reflux ?K21.9 - Gastro-esophageal reflux disease without esophagitis (ICD-10) Arthritis of left foot ?M19.072 - Primary osteoarthritis, left ankle and foot (ICD-10) RP (rectal prolapse) ?K62.3 - Rectal prolapse (ICD-10) Chronic headache ?R51.9 - Headache, unspecified (ICD-10) ?G89.29 - Other chronic pain (ICD-10) Surgical History History of tubal ligation ?Z98.51 - Tubal ligation status (ICD-10) Hx of cholecystectomy ?Z90.49 - Acquired absence of other specified parts of digestive tract (ICD-10) H/O cystoscopy ?Z98.890 - Other specified postprocedural states (ICD-10) H/O esophagogastroduodenoscopy ?Z98.890 - Other specified postprocedural states (ICD-10) Hx of gastric bypass ?Z98.84 - Bariatric surgery status (ICD-10) Family History Mother Family history of diabetes mellitus Father Heart disease Social History Within the past year, how often did you have a drink containing alcohol: never Within the past year, how often did you have six or more drinks on one occasion: never Score interpretation: A score less than 3 is consistent with normal alcohol consumption. Smoking status: Current every day smoker Second hand tobacco smoke exposure: Yes Non-prescribed substance use: denies use Previous occupational history: [employer]IP [employer] Known occupational exposures/hazards: No Highest level of school completed/degree received: high school graduate Little interest or pleasure in doing things: not at all Feeling down, depressed, or hopeless: not at all Do you think of yourself as: straight/heterosexual Gender Identity: female Meds Home Medications and Allergies Home Medications ?Medication ?Instructions ?Recorded ?Confirmed ?Type duloxetine 30 mg capsule,delayed 60 mg PO DAILY 06/19/23 03/10/25 History release (Cymbalta) zolpidem 10 mg tablet (Ambien) 10 mg PO DAILY PRN insomnia 07/11/23 03/10/25 History cyclobenzaprine 10 mg tablet 10 mg PO TID PRN muscle spasm 01/31/25 03/10/25 History fexofenadine 180 mg tablet 180 mg PO DAILY 01/31/25 03/10/25 History (Layla Allergy) gabapentin 300 mg capsule 900 mg PO TID 01/31/25 03/10/25 History (Neurontin) meloxicam submicronized 10 mg 15 mg PO DAILY 01/31/25 03/10/25 History capsule (Vivlodex) tolterodine 4 mg capsule,extended 4 mg PO DAILY 01/31/25 03/10/25 History release 24 hr (Detrol LA) vitamin B12 500 mcg-folic acid 400 1 tab PO DAILY 01/31/25 03/10/25 History mcg tablet cariprazine 3 mg capsule (Vraylar) 3 mg PO DAILY 03/10/25 03/10/25 History lansoprazole 15 mg capsule,delayed 15 mg PO DAILY 03/10/25 03/10/25 History release (Prevacid 24Hr) Allergies Allergy/AdvReac Type Severity Reaction Status Date / Time Penicillins Allergy Severe Hives Verified 03/10/25 08:40 Exam Constitutional Documenting provider has reviewed patient's vital signs: yes Common normals: no apparent distress, oriented x3, healthy appearing, alert and well nourished General appearance: cooperative HENUT Common normals: normocephalic, hearing grossly normal bilaterally and moist oral mucous membranes Head and scalp: normocephalic Eye Common normals: PERRL Pupil: PERRL Neck & C-Spine Common normals: full ROM General: normal visual inspection Cervical spine: cervical ROM normal; no pain with cervical ROM and no cervical spine tenderness Other: negative spurlings strength 5/5 in BUE sensation intact BUE Chest Common normals: inspection of chest normal Respiratory Common normals: normal respiratory effort, no retractions and no use of accessory muscles Back & Pelvis Lumbar spine/lower back: ROM limited, pain with ROM, lumbar spinal tenderness and straight leg raise positive right Sacroiliac joints: SI joint(s) abnormal Other: right sij positive kvng(patricks), gaenslens, thigh thrust, compression test significant pain with palpation of right buttocks and piriformis, increased pain with SLR no pain with internal/external rotation Neuro Common normals: oriented x3 Sensorium/orientation: alert Psych Common normals: mental status grossly normal, thought process normal, cooperative, affect normal, speech normal and activity/motor behavior normal Speech: normal speech Thought process: normal thought process Results Additional Findings Additional findings: If on a controlled substance or opioids, I have checked an OARRS report on this patient and there are no aberrancies noted in the prescribing history.??If on a controlled substance or opioid a drug screen was completed and reviewed within the last year, and if there has not been a drug screen completed we ordered one today to monitor higher risk, state monitored pain medication use. As part of providing excellent, safe, comprehensive care, the following was completed at our patient's visit: 1. A medication reconciliation and review to ensure accurate knowledge of current/active medications, including asking our patients to inform us about any [id number] medications or herbal remedies/nutritional supplements/alternative remedies. 2. A review to specifically ensure our patients have had annual screening for screening for depression, screening for tobacco use, and screening for unhealthy alcohol use. For concerning screenings had a discussion with the patient, provided patient education, and recommended follow-up with primary care provider when appropriate. If patient noted with a risk of falling, they received education on strength, gait, and balance training to prevent future risk of falling. Portions of this note may have been carried over from the previous visit and updated as appropriate. Please note this office utilizes paper charting in addition to the electronic medical record. A list of current medications, vitals, and PMH is available there as the clinical staff outside of myself do not have access to I AM AT charting during the clinic day operations. As part of providing quality comprehensive care the current medications, vitals, and PMH were reviewed in the paper chart. Assessment and Plan Assessment and Plan (1) Piriformis syndrome of right side: (2) Lumbar spondylosis: (3) Sacroiliitis: (4) Cervical stenosis of spinal canal: Assessment and Plan: 03-10-25 right C5-6 C6-7 TFESI significant ongoing relief on exam, 50% improvement ongoing per pt Plan as discussed with pt she endorses significant facet mediated low back pain and right SIJ pain on exam, as well as piriformis pain. will trial right piriformis injection under fluoroscopy as directed by Dr Arshad. consider right SIJ injection and facet medial branch blocks in the future in regards to cspine pt has no pain/deficits on exam, significant improvement from prior continue current medications f/u after injection
== END 2025-04-17 15:14 | disposition home or self-care (01) ==
LOC: PM 15:13
PROVIDERS: PCP Nurse Practitioner; Visit Provider Nurse Practitioner
DX: G57.01 Lesion of sciatic nerve, right lower limb (principal); M47.816 Spondylosis without myelopathy or radiculopathy, lumbar region; M46.1 Sacroiliitis, not elsewhere classified; M48.02 Spinal stenosis, cervical region
CPT/HCPCS: G0463

== ENCOUNTER 2025-05-05 07:23 | Day surgery (SDC) | payer OTHER, SELFPAY ==
--- OUTSIDE RECORDS SUMMARY | 2019-11-19 07:15 | XMS_ITS | Continuity of Care Document ---
Author Organization [facility] Address [address] [place] [address] Phone Care Team Providers Care Ampoule Inspector Name Role Phone Bernardo WELLER, Mathew Early Unavailable Procedures Procedure Date POSTOP FOLLOW-UP VISIT POSTOP FOLLOW-UP VISIT Gastric Bypass LAP GASTRIC BYPASS/YOUSUF-EN-Y OFFICE/OUTPATIENT VISIT, EST OFFICE/OUTPATIENT VISIT, NEW Advance Directives Directive Yes / No Effective Date File Name No Information Encounters Encounter Description Practice Location Reason(s) For Visit Diagnoses Date Provider Providers Copied on Encounter [facility] [facility], [address] [place] [address], [id number], tel:[phone] [facility] No Information Bernardo Carmona. [address], [id number], [place]. tel:[phone] Referring Provider: Mathew Boudreaux, [address], [address]. tel:[phone] [facility], [address] [place] [address], [id number], tel:[phone] [facility] No Information Laci Londono. [address] [facility] [address], [place], [id number], [place]. tel:[phone] Referring Provider: Spring Aguero, [address] [facility] [address], [place], [address]. tel:[phone] [facility], [address] [place] [address] [address], [place], [place], [id number], [place] tel:[phone] [facility] IP No Information Laci Londono. [address], [place], [place], [address], [place]. tel:[phone] Referring Provider: Spring Aguero, [address] [facility] [address], [place], [address]. tel:[phone] [facility], [address] [place] [address] [address], [place], [place], [address], [place] tel:[phone] [facility] IP No Information Bernardo Carmona. [address] [facility] [address], [place], [place], [address], [place]. tel:[phone] Referring Provider: Mathew Boudreaux, [address] [facility] [address], [place], [address]. tel:[phone] OFFICE/OUTPATI ENT VISIT, [facility], [address] [address], [place], [place], [address], [place] tel:[phone] [facility] No Information Bernardo Carmona. [address] [facility] [address], [place], [place], [address], [place]. tel:[phone] Referring Provider: Mathew Boudreaux, [address] [facility] [address], [place], [address]. tel:[phone] OFFICE/OUTPATI ENT VISIT, [facility] [employer] [facility], [address] [place] [address] [address], [place], [place], [address], [place] tel:[phone] [facility] No Information Bernardo Carmona. [address] [facility] [address], [place], [place], [address], [place]. tel:[phone] Referring Provider: Mathew Boudreaux, [address] [facility] [address], [place], [address]. tel:[phone] Family History Family Member Type Diagnosis Age At Onset No Information Payers Payer name Insurance type Covered democrat ID Bijal elmore(anastasiia Ruiz [id number] Social History Type Description Quantity Date Captured [...]
--- OUTSIDE RECORDS SUMMARY | 2024-09-03 11:30 | XMS_ITS ---
Author Organization The [facility] in [place] Address [address] [place] [address] Care Team Providers Care Cataloging Assistant Name Role Phone None, Unknown or Primary Care Provider Unavailab Mathew Lee Unavailable [phone] REASON FOR VISIT Left foot, surgical discussion about removal of hardware Encounters Encounter Location Date Provider Diagnosis [facility] (PODIATRY) [address] [place] [address] [place] [address] 09/03/2024 Mathew Hoff Left foot pain M79.672 Assessments Encounter Date Diagnosis (ICD Code) Assessment Notes Treatment Notes Treatment Clinical Notes Section Notes 09/03/2024 Left foot pain (ICD-10 - M79.672) Plan Of Treatment Pending Test Test Name Order Date XR Foot LT (3 views) * 09/03/2024 Progress Notes * Talia MERCADODOB:[birth year] (55 yo F)Acc No.[id number]:09/03/2024 UNLOCKED PROGRESS NOTE Follow Up Patient: Talia FREED Provider: Miguel Hoff DPM, MS :1970 A ge:54 Y S ex:Female Date:09/03/2024 Address:[address] [place] [address] JOSE CARL[address] [place], [id number] Pcp:Unknown or None Subjective: * Chief Complaints: * 1 . Left foot, surgical discussion about removal of hardware. * Medical History: Objective: * Vitals: Assessment: * Assessment: 1. L eft foot pain - M79.672 Plan: * Treatment: * * Electronic signature of Benson Hoff DPM on 05/05/2025 at 07:26 AM EDT Sign off status: Pending Visit Status: N /S N/C (No Show/No Charge) * Provider: Miguel Hoff DPM, MS Date: 0 09/03/2024 Generated for Taina Lawrence/Snadra on: 1 07:26 AM EDT
--- OUTSIDE RECORDS SUMMARY | 2025-05-05 07:25 | XMS_ITS | Encounter Summary ---
Author Organization [facility] Address [address] [place] [address] Care Team Providers Care Melting Supervisor Name Role Phone Shaikh NITHIN Main Primary Care Provider [phone] Shaikh NITHIN Main Primary Care Provider [phone] Molina De Anda MD Primary Care Provider [phone] Valerie rGoves ELECTRICAL MAINTENANCE MECHANIC Unavailable [phone] Karime Dias PMHNP- Unavailable Rohan Burns LPC Unavailable Unavailable Reason for Visit * Reason Comments Med Refill Encounter Details Date Type Department Care Team (Late st Contact Info) Description 10/16/2023 Refill [facility] [address] [place] [address] Shaikh Main MD [address] [place] [address] Psychophysiological insomnia Social History Tobacco Use Types Packs/Day Years Used Date Smoking Tobacco: Every Day Cigarettes 1 39.8 Started: 1984 Smokeless Tobacco: Never Comments:Thinking about [...] or ex-partner? No 08/07/2023 Social Connection and Isolation Panel Answer Date Recorded In a typical week, [...] Recorded Patient Health Questionnaire-2 Score 6 08/03/2023 [facility] [place] of Occupat ional Health - Occupational [...] Care Team (Late st Contact Info) Description 05/21/2025 4:30 PM EDT Social Work [facility] [address] [facility] [address] [place] [address] Rohan Burns LPC 06/02/2025 3:00 PM EST Office Visit [facility] [address] [facility] [address] [place] [address] Macarena Chang, SUPERVISOR MAJOR APPLIANCE ASSEMBLY-CORPORATE SAFETY COORDINATOR [address] [facility] [address] [place] [address] documented as of this encounter Goals Goal [...] documented as of this encounter Care Teams Melting Supervisor Relationship Specialty Start Date End Date Shaikh Main MD PCP - General Internal Medicine 04/20/23 01/07/24 Shaikh Main MD PCP - General Internal Medicine 01/08/24 02/20/24 Molina De Anda MD PCP - General Family Medicine 02/21/24 Valerie Groves NP Nurse Practitioner Family Medicine 02/21/24 Karime iDas [facility] [address] [address] Nurse Practitioner Behavioral Health 01/22/25 Rohan Burns LPC Exhibition Specialist Behavioral Health 03/06/25 documented as of this encounter
--- OUTSIDE RECORDS SUMMARY | 2025-05-05 07:25 | XMS_ITS | Encounter Summary ---
Author Organization [facility] Address [address] [place] [address] Care Team Providers Care Rolling Up Machine Operator Name Role Phone Molina De Anda MD Primary Care Provider [phone] Valerie Groves CASHIER HOST/HOSTESS Unavailable [phone] Karime Dias PMHNP- Unavailable [phone] Rohan Burns LPC Unavailable Unavailable Encounter Details Date Type Department Care Team (Late st Contact Info) Description 02/18/2025 Abstract [facility] [address] [facility] [place] [address] Pascale Arana NP [address] [place] [address] Social History Tobacco Use Types Packs/Day Years Used Date Smoking Tobacco: Every Day Cigarettes 1 39.8 Started: 1984 Passive Smoke Exposure: Past Smokeless [...] Recorded Patient Health Questionnaire-2 Score 5 01/22/2025 [facility] [place] of Occupat ional Health - Occupational Stress [...] [address] [facility] [address] [place] [address] Rohan Burns LPC 06/02/2025 3:00 PM EST Office Visit [facility] [address] [facility] [address] [place] [address] Macarena Chang APRN-AUTOMOTIVE HEAVY MECHANIC [address] [facility] [address] [place] [address] documented as of this encounter Goals Goal [...] documented as of this encounter Care Teams Rolling Up Machine Operator Relationship Specialty Start Date End Date Molina De Anda MD PCP - General Family Medicine 02/21/24 Valerie Groves NP Nurse Practitioner Family Medicine 02/21/24 [facility] [address] [address] Nurse Practitioner Behavioral Health 01/22/25 Rohan Burns LPC [facility] 03/06/25 documented as of this encounter
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
--- OUTSIDE RECORDS SUMMARY | 2025-05-05 07:26 | XMS_ITS | Encounter Summary ---
Author Organization [employer] tem Address [id number] [address] [place] [address] Care Team Providers Care Pointer Machine Operator Name Role Phone Pascale Arana SUPERVISOR ASSEMBLY-STACKER STRAIGHTENER Primary Care Provider Encounter Details Date Type Department Care Team (Late st Contact Info) Description 02/13/2023 Telephone [facility] General Surgery [address] [place] [address] Segun Keene DO [address] [place] [address] Social History Tobacco Use Types [...] office visit;just set up for colonsocopy at [facility] for anemis. I don't need to see he agian. Saw her today!!! * Telephone Encounter - Alberta Millan - 02/13/2023 11:36 AM EDT Talia called the office to try to reschedule her appointment, I informed her that Dr. Jassi fraga her set up for a colonoscopy at [facility]. Told Talia that our surgery schedulerwill call her back to schedule that with her. * Telephone Encounter - SUGEY Loyd - 02/13/2023 11:36 AM EDT I called Talia and scheduled colonoscopy at [facility] for 03/08/23. The patient is coming in tomorrow 02/14/23 to sign papers and go over bowel prep. I will send Dr. Keene a message to put in orders for this procedure and email everything over to Anh at the [facility]. documented in this encounter Plan of Treatment Upcoming Encounters Date Type Department Care Team (Late st Contact Info) Description 05/28/2025 2:30 PM EST Procedure visit [facility] - [facility] [address] [place] [address] Tania Asif MD [address] [place] [address] documented as of this encounter Visit Diagnoses Not on filedocumented in this encounter Care Teams Pointer Machine Operator Relationship Specialty Start Date End Date Pascale Arana, SUPERVISOR ASSEMBLY-STACKER STRAIGHTENER [address] [place] [address] PCP - General Nurse Practitioner 04/02/25 documented as of this encounter
--- OUTSIDE RECORDS SUMMARY | 2025-05-05 07:26 | XMS_ITS | Encounter Summary ---
Author Organization [facility] Address [address] [place] [address] Care Team Providers Care Take Away Attendant Name Role Phone Molina De Anda MD Primary Care Provider [phone] Valerie Groves LEAD RECREATION ASSISTANT Unavailable [phone] Karime Dias PMHNP- Unavailable [phone] Rohan Burns LPC Unavailable Unavailable Encounter Details Date Type Department Care Team (Late st Contact Info) Description 01/06/2025 Abstract [facility] [address] [place] [address] Pascale Arana NP [address] [place] [address] Social History Tobacco Use Types Packs/Day Years [...] [facility] [address] [facility] [address] [place] [address] Rohan Burns LPC 06/02/2025 3:00 PM EST Office Visit [facility] [address] [facility] [address] [place] [address] Macarena Chang, BRAKE LINING MAKER-APN [address] [facility] [address] [place] [address] documented as of this encounter Goals Goal [...] documented as of this encounter Care Teams Take Away Attendant Relationship Specialty Start Date End Date Molina De Anda MD PCP - General Family Medicine 02/21/24 Valerie Groves NP Nurse Practitioner Family Medicine 02/21/24 Karime Dias [facility] [address] [place] [address] Nurse Practitioner Behavioral Health 01/22/25 Rohan Burns LPC Cyber Security Systems Engineer Behavioral Health 03/06/25 documented as of this encounter
--- OUTSIDE RECORDS SUMMARY | 2025-05-05 07:26 | XMS_ITS | Encounter Summary ---
Author Organization [facility] Address [address] [place] [address] Care Team Providers Care Land Reclamation Specialist Name Role Phone Molina De Anda MD Primary Care Provider [phone] Valerie Groves BULL BUCKER Unavailable [phone] [facility] Un[facility] [phone] Rohan Burns [facility] Unavailable Unavailable Encounter Details Date Type Department Care Team (Late st Contact Info) Description 01/22/2025 Orders Only [facility] [address] [facility] [address] [place] [phone] Karime Dias [facility] [address] [facility] [address] [place] [phone] Social History Tobacco Use Types Packs/Day Years [...] 01/22/2025 9:29 AM Francisca Norris PMHNP-TWIN * How difficult have these problems made it for you to do your work, take care of things at home, or get along with other people? Answer Date of Assessment Author Extremely difficult 01/22/2025 9:29 AM Karime Yao PMHNP-BC * Over the last 2 weeks, [...] day 01/22/2025 9:29 AM Karime Norris PMHNP-TWIN Feeling tired or having little energy Nearly [...] Nearly every day 01/22/2025 9:29 AM EDT Dias, Karime , PMHNP-BC Moving or speaking so slowly [...] days 01/22/2025 9:29 AM EDT Liz Dias h PMHNP-BC Patient Health Questionnaire-9 Score 21 01/22/2025 9:29 AM EDT Francisca Dias PMHNP-BC documented as of this encounter Plan of Treatment Upcoming Encounters Date Type Department Care Team (Late st Contact Info) Description 05/21/2025 4:30 PM EDT Social Work [facility] [address] [facility] [address] [place] [address] Rohan Burns LPC 06/02/2025 3:00 PM EST Office Visit [facility] [address] [facility] [address] [place] [address] Angeli-Macarena Santos, FISHER POT-MANDATE RETAIL SERVICE MERCHANDISER [address] [facility] [address] [place] [address] documented as of this encounter Goals Goal [...] documented as of this encounter Care Teams Land Reclamation Specialist Relationship Specialty Start Date End Date Molina De Anda MD PCP - General Family Medicine 02/21/24 Valerie Groves NP Nurse Practitioner Family Medicine 02/21/24 Karime Dias PMHNP-BC [address] [address] Nurse Practitioner Behavioral Health 01/22/25 Rohan Burns LPC Fishing Guide Behavioral Health 03/06/25 documented as of this encounter
--- OUTSIDE RECORDS SUMMARY | 2025-05-05 07:26 | XMS_ITS | Encounter Summary ---
Author Organization [facility] Address [address] [place] [address] Care Team Providers Care Transfer Engineer Name Role Phone Molina De Anda MD Primary Care Provider [phone] Valerie Groves DECKHAND ENGINEER Unavailable [phone] Karime Dias PMHNP- Unavailable [phone] Rohan Burns [facility] Unavailable Unavailable Encounter Details Date Type Department Care Team (Late st Contact Info) Description 11/28/2024 [facility] [address] [facility] [place] [phone] Natacha Lyn MA IGP,APTIMA HPV,AGE GDLN Social History Tobacco Use Types Packs/Day Years [...] week 08/07/2023 How often do you attend [facility] or judaism services? Never 08/07/2023 Do you [...] Score 0 04/10/2024 [facility] - Occupational Stress Questionnaire [...] [facility] [address] [facility] [address] [place] [address] Rohan Burns LPC 06/02/2025 3:00 PM EST Office Visit [facility] [address] [facility] [address] [place] [address] Macarena Chang, PLANT AND MAINTENANCE TECHNICIAN-CERTIFIED FLIGHT INSTRUCTOR [address] [facility] 160 [place] [address] documented as of this encounter Goals Goal [...] documented as of this encounter Care Teams Transfer Engineer Relationship Specialty Start Date End Date Molina De Anda MD PCP - General Family Medicine 02/21/24 Valerie Groves NP Nurse Practitioner Family Medicine 02/21/24 Karime Dias, [facility] [address] [phone] Nurse Practitioner Behavioral Health 01/22/25 Rohan Burns LPC Turbine Room Attendant Behavioral Health 03/06/25 documented as of this encounter
--- OUTSIDE RECORDS SUMMARY | 2025-05-05 07:26 | XMS_ITS | Encounter Summary ---
Author Organization [facility] Address [address] [place] [address] Care Team Providers Care Blueberry Grower Name Role Phone Molina De Anda MD Primary Care Provider [phone] Valerie Groves RN WOUND CARE Unavailable [phone] Karime Dias PMHNP- Unavailable [phone] Rohan Burns LPC Unavailable Unavailable Encounter Details Date Type Department Care Team (Late st Contact Info) Description 01/20/2025 Abstract [facility] [address] [facility] [place] [address] Pascale Arana NP [address] [place] [address] Social History Tobacco Use Types Packs/Day Years [...] edge 2 01/22/2025 9:30 AM Karime Norris PMHNP-TWIN Not being able to stop or control worrying 3 01/22/2025 9:30 AM Karime Norris PMHNP-BC Worrying too much about different things 3 01/22/2025 9:30 AM Karime Norris PMHNP-BC Trouble relaxing 3 01/22/2025 9:30 AM Karime [...] Dias, PMHNP-BC documented as of this encounter Plan of Treatment Upcoming Encounters Date Type Department Care Team (Late st Contact Info) Description 05/21/2025 4:30 PM EDT Social Work [facility] [address] [facility] [address] [place] [address] Rohan Burns LPC 06/02/2025 3:00 PM EST Office Visit [facility] [address] [facility] [address] [place] [address] Macarena Chang, CRA OFFICER-IMAGING SPECIALIST [address] [facility] [address] [place] [address] documented as of this encounter Goals Goal [...] documented as of this encounter Care Teams Blueberry Grower Relationship Specialty Start Date End Date Molina De Anda MD PCP - General Family Medicine 02/21/24 Valerie Groves NP Nurse Practitioner Family Medicine 02/21/24 Karime Dias, PMHNP- [address] [phone] Nurse Practitioner Behavioral Health 01/22/25 Rohan Burns LPC Vocal Artist Behavioral Health 03/06/25 documented as of this encounter
--- OUTSIDE RECORDS SUMMARY | 2025-05-05 07:26 | XMS_ITS | Clinical Summary ---
Author Organization [facility] Address [address] [place] [address] Care Team Providers Care Sign Designer Name Role Phone Shaikh NITHIN Main Primary Care Provider [phone] Allergies Active Allergy Reactions Criticality Noted Date [...] COVID-19 Vaccine ( - 2023-2 5 season) 2025 Influenza Vaccine (#1) 2025 HIB Vaccines Aged [...] complete this topic Insurance [employer] Care Teams Sign Designer Relationship Specialty Start Date End Date Shaikh Main MD PCP - General Family Medicine 04/07/23
--- OUTSIDE RECORDS SUMMARY | 2025-05-05 07:26 | XMS_ITS | Clinical Summary ---
Author Organization [employer] [facility] Address [id number] [address] [place] [address] Care Team Providers Care Breaker Off Name Role Phone DerrickPascale argueta NEWSPAPER DELIVERY DRIVER-TWISTING MACHINE OPERATOR Primary Care Provider Allergies Active Allergy Reactions Criticality Noted Date Comments Penicillins Hives 02/08/2023 Medications meloxicam (MOBIC) 15 mg tablet Take 1 tablet (15 mg total) by mouth in the morning. 5 Active cyclobenzaprine (FLEXERIL) 10 mg tablet Take 1 tablet (10 mg total) by mouth 3 (three) times a day. 5 Active fexofenadine (HUNG) 180 mg tablet Take 1 tablet (180 mg total) by mouth in the morning. 5 Active fluticasone propionate (FLONASE) 50 mcg/actuation nasal spray Administer 2 sprays into each nostril in the morning. 5 Active gabapentin (NEURONTIN) 300 mg capsule Take 1 capsule (300 mg total) by mouth 3 (three) times a day. 5 Active lansoprazole (PREVACID) 30 mg capsule Take 1 capsule (30 mg total) by mouth every morning before breakfast. Active tolterodine LA (DETROL LA) 4 mg 24 hr capsule Take 1 capsule (4 mg total) by mouth in the morning. 5 Active zolpidem (AMBIEN) 10 mg tablet Take 1 tablet (10 mg total) by mouth daily as needed. 5 Active estradioL (ESTRACE) 0.01 % (0.1 mg/gram) vaginal creamIndications:C ystocele with second degree uterine prolapse,History of reconstructive repair of rectocele,Urge urinary incontinence Apply pea sized amount ( 1.5 g) to vaginal introitus nightly for 4 weeks then 1-2 times per week thereafte 42.5 g 2 Active cariprazine (VRAYLAR) 1.5 mg capsule Take 1 [...] total) by mouth in the morning. Active mirabegron (MYRBETRIQ) 50 mg tablet extended release 24 hrIndications:Cyst ocele with second degree uterine prolapse,History of reconstructive repair of rectocele,Urge urinary incontinence Take 1 tablet (50 mg total) by mouth in the morning. 30 tablet 5 Active Active Problems No known active problems Encounters Date Type Department Care Team Description 05/02/2025 Telephone [facility] - Urogynecology [address] [place] [address] Areli Gudino CMA 04/02/2025 3:00 PM EDT Office Visit [facility] - [facility] [address] [place] [address] Tania Asif MD Cystocele with second degree uterine prolapse (Primary Dx); History of reconstructive repair of rectocele; Urge urinary incontinence 04/02/2025 Travel 02/24/2025 Abstract [facility] - Urogynecology [address] [place] [address] Tania Asif MD 02/06/2025 2:15 PM EDT Office Visit [facility] Ob[facility]etrics/[facility]necolog y [address] [place] [address] Leslye Muniz, DO Cystocele with second degree uterine prolapse (Primary [...] got money to buy more. Never True 04/02/2025 Within the past 12 months th e food we bought just didn't last and we didn't have money to get more. Never True 04/02/2025 Purpose - Life Answer Date Recorded Purpose and direction in life Unknown Comments No Sex and Gender Information Value Date Recorded Sex Assigned at Not on file Legal Sex Female 12:10 PM EDT Gender Identity Not on file Sexual Orientation Not on file Last Filed Vital Signs Vital Sign Reading Time Taken Comments Blood Pressure 98/64 04/02/2025 2:57 PM EDT Pulse 83 04/02/2025 2:57 PM EDT Temperature - - Respiratory Rate - - Oxygen Saturation - - Inhaled Oxygen Concentration - - Weight 80.1 kg (176 lb 9.6 oz) 04/02/2025 2:57 P M EDT Height 166.4 cm (5' 5.5 ) 04/02/2025 2:57 PM EDT Body Mass Index 28.94 04/02/2025 2:57 PM EDT Plan of Treatment Upcoming Encounters Date Type Department Care Team (Late st Contact Info) Description 05/28/2025 2:30 PM EST Procedure visit [facility] - [facility] [address] [place] [address] Tania Asif MD [address] [place] [address] Health Maintenance Due Date Last Done Comments Tobacco Counseling 1971 Depression Screening 1983 Adult BMI Follow Up Plan 1989 DTaP,Tdap and Td Vaccines (1 - Tdap) 1990 Pap Smear 1992 Zoster (Shingles) Vaccine (1 of 2) 2021 Influenza Vaccine 03/24/2025 Adult BMI Screening 04/02/2026 04/02/2025 Tobacco Screening 2026 2025 Medical Devices Not on file Insurance AETNA Care Teams Breaker Off Relationship Specialty Start Date End Date Pascale Arana, NEWSPAPER DELIVERY DRIVER-TWISTING MACHINE OPERATOR [address] [place] [address] PCP - General Nurse Practitioner 04/02/25
--- OUTSIDE RECORDS SUMMARY | 2025-05-05 07:26 | XMS_ITS | Encounter Summary ---
Author Organization [facility] Address [address] [place] [address] Care Team Providers Care Catholic Priest Name Role Phone Molina De Anda MD Primary Care Provider [phone] Valerie Groves NEON GLASS BENDER Unavailable [phone] Karime Dias PMHNP- Unavailable [phone] Rohan Burns CONCERT PROMOTER Unavailable Unavailable Encounter Details Date Type Department Care Team (Late st Contact Info) Description 11/18/2024 Orders Only [facility] [address] [facility] [place] [address] Pascale Arana NP [address] [place] [address] Social History Tobacco Use Types Packs/Day Years [...] any clubs o r organizations such as latter-day groups, unions, fraternal or athletic groups, or [...] Recorded Patient Health Questionnaire-2 Score 0 04/10/2024 [facility] [place] of Occupat ional Health - Occupational Stress [...] WAY [facility] [address] [place] [address] Rohan Burns LPC 06/02/2025 3:00 PM EST Office Visit [facility] [address] [facility] [address] [place] [address] Macarena Chang APRN-STATIONARY ENGINEER [address] [facility] [address] [place] [address] documented as of this encounter Goals Goal [...] (11/18/2024 2:41 PM EDT) us Pascale Arana NEON GLASS BENDER LAB CHG PERFORMABLES Final Resu lt documented in this encounter Visit Diagnoses Not on filedocumented in this encounter Additional Health Concerns Active Problems Noted Date Diagnosed Date Patient on antidepressant monitoring plan 2023 Assessment Noted Time PHQ-9 Depression Total Score: 23 024 4:27 PM EST documented as of this encounter Care Teams Catholic Priest Relationship Specialty Start Date End Date Molina De Anda MD PCP - General Family Medicine 02/21/24 Valerie Groves NP Nurse Practitioner Family Medicine 02/21/24 Karime Dias [facility] [address] [phone] Nurse Practitioner Behavioral Health 01/22/25 Rohan Burns LPC Pretzel Twister Behavioral Health 03/06/25 documented as of this encounter
--- OUTSIDE RECORDS SUMMARY | 2025-05-05 07:26 | XMS_ITS | Encounter Summary ---
Author Organization [facility] Address [address] [place] [address] Care Team Providers Care Assembler Deck And Hull Name Role Phone Shaikh NITHIN Main Primary Care Provider [phone] Shaikh NITHIN Main Primary Care Provider [phone] Molina De Anda MD Primary Care Provider [phone] Valerie Groves CULINARY ARTS INSTRUCTOR Unavailable [phone] Karime Dias PMHNP- Unavailable Rohan Burns [facility] Unavailable Unavailable Encounter Details Date Type Department Care Team (Late st Contact Info) Description 08/07/2023 Orders Only [facility] [place] [facility] [address] [place] [address] Shaikh Main MD [address] [facility] [place] [address] Social History Tobacco Use Types Packs/Day Years [...] How often do you attend chur or adventism services? Never 08/07/2023 Do you [...] Patient Health Questionnaire-2 Score 6 08/03/2023 [facility] [place] of Occupat ional Health - Occupational Stress [...] as of this encounter Functional Status * AUDIT-C Score Answer Date of Assessment Author 0 [...] [facility] [address] [place] [address] [place] [address] Rohan Burns VAMP STITCHER 06/02/2025 3:00 PM EST Office Visit [facility] [address] [place] [address] [place] [address] Macarena Chang, MARKETING SALES REPRESENTATIVE-CASING BLOWER [address] [place] [address] documented as of this encounter Goals Goal [...] documented as of this encounter Care Teams Assembler Deck And Hull Relationship Specialty Start Date End Date Shaikh Main MD PCP - General Internal Medicine 04/20/23 01/07/24 Shaikh Main MD PCP - General Internal Medicine 01/08/24 02/20/24 Molina De Anda MD PCP - General Family Medicine 02/21/24 Valerie Groves NP Nurse Practitioner Family Medicine 02/21/24 Karime Dias, NORM- [address] [address] Nurse Practitioner Behavioral Health 01/22/25 Rohan Burns LPC Science Instructor Behavioral Health 03/06/25 documented as of this encounter
--- OUTSIDE RECORDS SUMMARY | 2025-05-05 07:26 | XMS_ITS | Encounter Summary ---
Author Organization [facility] Address [address] [place] [address] Care Team Providers Care Gyro Mechanic Name Role Phone Shaikh NITHIN Main Primary Care Provider [phone] Shaikh NITHIN Main Primary Care Provider [phone] Molina De Anda MD Primary Care Provider [phone] Valerie Groves ASSISTANT SOFTBALL COACH Unavailable [phone] Karime Dias PMHNP- Unavailable Rohan Burns [facility] Unavailable Unavailable Encounter Details Date Type Department Care Team (Late st Contact Info) Description 08/02/2023 Orders Only [facility] [address] [place] [address] Shaikh Main MD [address] [facility] [place] [address] Social History Tobacco Use Types Packs/Day Years [...] or ex-partner? No 07/03/2023 Social Connection and Isolation Panel Answer Date Recorded In a typical week, how many times do you talk on the phone with family, friends, or neighbors? More than three times a week 07/03/2023 How often do you get togethe r with friends or relatives? Once a week 07/03/2023 [facility] services? Patient declined 07/03/2023 [...] Recorded Patient Health Questionnaire-2 Score 6 08/03/2023 [facility] of Occupat ional Health [...] 08/03/2023 4:27 PM Neema Huizar MA * How difficult have these problems made it for you to do your work, take care of things at home, or get along with other people? Answer Date of Assessment Author Very difficult 08/03/2023 4:27 PM Scottie Huizar MA documented as of this encounter Plan of Treatment Upcoming Encounters Date Type Department Care Team (Late st Contact Info) Description 05/21/2025 4:30 PM EDT Social Work [facility] [address] [facility] [address] [place] [address] Rohan Burns LPC 06/02/2025 3:00 PM EST Office Visit [facility] [address] [facility] [address] [place] [address] Macarena Chang, LEAD SYSTEMS ANALYST-RIVET FLUNKY [address] [facility] [address] [place] [address] documented as of this encounter Procedures Procedure Name Priority Date/Time Associated Diagnosis Comments MISCELLANEOUS LAB TEST Routine 07/28/2023 1:49 PM EST documented in this encounter Results * - Miscellaneous Test (07/28/2023 1:49 PM EST) Shaikh Etelvina WELLER LAB BLOOD ORDERABLES Final Resu lt documented in this encounter Visit Diagnoses Not on filedocumented in this encounter Care Teams Gyro Mechanic Relationship Specialty Start Date End Date Shaikh Main MD PCP - General Internal Medicine 04/20/23 01/07/24 Shaikh Main MD PCP - General Internal Medicine 01/08/24 02/20/24 Molina De Anda MD PCP - General Family Medicine 02/21/24 Valerie Groves NP Nurse Practitioner Family Medicine 02/21/24 Karime Dias PMHNP- [address] [address] Nurse Practitioner Behavioral Health 01/22/25 Rohan Burns LPC Cadd Instructor Behavioral Health 03/06/25 documented as of this encounter
--- OUTSIDE RECORDS SUMMARY | 2025-05-05 07:26 | XMS_ITS | Patient Health Record ---
Author Organization [facility] [place] Address [address] [place] [address] Care Team Providers Care Networking Engineer Name Role Phone None, Unknown or Primary Care Provider Unavailab Tawana Lee [phone] Allergies Allergen (clinical drug ingredient) Drug/Non Drug Allergy documented on EMR Reaction Allergy Type Onset Date Status Penicillin rash Drug Allergy Active Results Component Value Reference Range Notes XR foot LT min 3V (Not yet r eviewed by provider) Interpretation: Performing Lab: Notes/Report: Source Facility: [place] [address] XRay Report Signed Patient: KALYN RUTHERFORD MR#: [id number] : 1970 Acct:[id number] Age/Sex: 54 / F ADM Date: 09/04/24 Loc: EC Attending Dr: Tawana Hfof D.P.M. Ordering Physician: Tawana Hoff D.P.M. Date of Service: 09/04/24 Procedure(s): XR foot LT min 3V Accession Number(s): [id number] cc: NASH LAMAR Peter D.P.M. [facility] [place] [address] Patient Name: KALYN RUTHERFORD MRN: [id number] date: 1970 Sex: F Assigned Patient Location: EC Current Patient Location: Accession/Order Number: [id number] Exam Date: 09/04/2024 15:53 Report Date: 09/05/2024 [...] Signed By: 09/05/24 1019 DD/ 1016 TD/TT: Electrolysist: CT FOOT LT WO CON (Not yet r eviewed by provider) Interpretation: Performing Lab: Notes/Report: Source Facility: [place] [address] CT Scan Report Signed Patient: KALYN RUTHERFORD MR#: [id number] : 1970 Acct:[id number] Age/Sex: 54 / F ADM Date: 09/09/24 Loc: CT Attending Dr: Tawana Hoff D.P.M. Ordering Physician: Tawana Hoff D.P.M. Date of Service: 09/09/24 Procedure(s): CT foot LT wo con Accession Number(s): [id number] cc: ANGEL LUIS LAM[place] [address] Patient Name: KALYN RUTHERFORD MRN: [id number] date: 1970 Sex: F Assigned Patient Location: CT Current Patient Location: CT Accession/Order Number: [id number] Exam Date: 09/09/2024 15:56 Report Date: 09/09/2024 [...] Dictated By: Amol Meneses M.D. Signed By: 09/09/24 1742 DD/ 1739 TD/TT: Electrolysist: Reason For Referral No Information Medications Medication [...] 15 MG 1 tablet Orally Once a day; Duration: 30 days 09/04/2024 Active Social History Tobacco [...] Problem Status W/U Status Risk Notes Problem Localized, primary osteoarthritis of the ankle and/or foot (771389057) Primary osteoarthritis , left ankle and foot (M19.072) Active confirmed Problem Gastroesophageal reflux disease (217375688) GERD (gastroesophag eal reflux disease) (K21.9) Active confirmed Problem Pain in left foot (394787784237256) Left foot pain (M79.672) Active confirmed Problem Anxiety depression (770402773) Anxiety with depression (F41.8) Active confirmed Problem Ulcer of big toe (disorder) (258103599) Chronic ulcer of great toe of left foot with fat layer exposed (L97.522) Active confirmed Vital Signs Heart Rate 85 /min 09/18/2024 Respiratory Rate 16 /min 09/18/2024 Oximetry 97 % 09/18/2024 Encounters Encounter Location Date Provider Diagnosis [facility] (PODIATRY) [address] [place] [address] [place] [address] 09/04/2024 Tawana Hoff Pain due to internal orthopedic prosthetic devices, implants and grafts, initial encounter T84.84XA ; Primary osteoarthritis, left ankle and foot M19.072 and Left foot pain M79.672 [facility] (PODIATRY) [address] [place] [address] [place] [address] 09/18/2024 Tawana Hoff 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.0 ; Primary osteoarthritis, left ankle and foot M19.072 and Pain due to internal orthopedic prosthetic devices, implants and grafts, initial encounter T84.84XA [facility] (PODIATRY) [address] [place] [address] [place] [address] 09/04/2024 Tawana Bluedoron Assessments Encounter Date Diagnosis (ICD Code) Assessment [...] Insured Coverage Start Date Coverage End Date RANDI COURTNEY [address] [place] [phone] [id number] Kalyn Rutherford Self - patient is the insured Medical (General) History Medical History History ICD Code GERD (gastroesophageal reflux disease) K 21.9 Anxiety F41.9 Arthritis M19.90 Nicotine dependence F17.200 Bipolar depression F31.9 Overactive bladder N32.81 Peripheral arterial disease I73.9 Surgical History Surgery Date(Month/Year) posterior colporrhaphy repair, enterocel e repair 02/15/2021 gastric bypass 08/2019 tubal ligation cholecystectomy
--- OUTSIDE RECORDS SUMMARY | 2025-05-05 07:26 | XMS_ITS | Encounter Summary ---
Author Organization [facility] Address [address] [place] [address] Care Team Providers Care Prop Drawer Name Role Phone Molina De Anda MD Primary Care Provider [phone] Valerie Groves ASSISTANT LIBRARIAN Unavailable [phone] Karime Dias PMHNP- Unavailable [phone] Rohan Burns LPC Unavailable Unavailable Encounter Details Date Type Department Care Team (Late st Contact Info) Description 02/21/2025 [facility] [address] [place] [address] Pascale Arana NP [address] [place] [address] Social History Tobacco Use Types Packs/Day Years [...] Patient Health Questionnaire-2 Score 5 01/22/2025 [facility] [place] [place] of Occupat ional Health - Occupational Stress [...] [facility] [address] [facility] [address] [place] [address] Rohan Burns LPC 06/02/2025 3:00 PM EST Office Visit [facility] [address] [facility] [address] [place] [address] Macarena Chang APRN-AWNING ERECTOR [address] [facility] [address] [place] [address] documented as of this encounter Goals Goal [...] documented as of this encounter Care Teams Prop Drawer Relationship Specialty Start Date End Date Molina De Anda MD PCP - General Family Medicine 02/21/24 Valerie Groves NP Nurse Practitioner Family Medicine 02/21/24 [facility] [address] [address] Nurse Practitioner Behavioral Health 01/22/25 Rohan Burns LPC Wire Bound Box Machine Operator Behavioral Health 03/06/25 documented as of this encounter
--- OUTSIDE RECORDS SUMMARY | 2025-05-05 07:26 | XMS_ITS | Encounter Summary ---
Author Organization [facility] Address [address] [place] [address] Care Team Providers Care Mortgage Loan Officer Name Role Phone Molina De Anda MD Primary Care Provider [phone] Valerie Groves CUT OUT PRESS OPERATOR Unavailable [phone] Karime Dias PMHNP- Unavailable [phone] Rohan Burns LPC Unavailable Unavailable Encounter Details Date Type Department Care Team (Late st Contact Info) Description 02/25/2025 [facility] [address] [facility] [place] [address] Pascale Arana NP [address] [place] [address] Social History Tobacco Use Types Packs/Day Years [...] Recorded Patient Health Questionnaire-2 Score 5 01/22/2025 [facility] of Occupat ional Health - Occupational Stress [...] WAY [facility] [address] [place] [address] Rohan Burns LPC 06/02/2025 3:00 PM EST Office Visit [facility] [address] [facility] [address] [place] [address] Macarena Chang APRN-EQUIPMENT ASSOCIATE [address] [facility] [address] [place] [address] documented as of this encounter Goals Goal [...] as of this encounter Care Teams Mortgage Loan Officer Relationship Specialty Start Date End Date Molina De Anda MD PCP - General Family Medicine 02/21/24 Valerie Groves NP Nurse Practitioner Family Medicine 02/21/24 [facility] [address] [address] Nurse Practitioner Behavioral Health 01/22/25 Rohan Burns LPC Pipe Fitter Behavioral Health 03/06/25 documented as of this encounter
--- OUTSIDE RECORDS SUMMARY | 2025-05-05 07:26 | XMS_ITS | Encounter Summary ---
Author Organization [facility] Address [address] [place] [address] Care Team Providers Care Library Associate Name Role Phone Molina De Anda MD Primary Care Provider [phone] Valerie Groves TUBING MACHINE TENDER Unavailable [phone] Karime Dias PMHNP- Unavailable [phone] Rohan Burns LPC Unavailable Unavailable Encounter Details Date Type Department Care Team (Late st Contact Info) Description 01/06/2025 Abstract [facility] [facility] [address] [facility] [place] [address] Pascale Arana NP [address] [place] [address] Social History Tobacco Use Types Packs/Day Years [...] Recorded Patient Health Questionnaire-2 Score 0 04/10/2024 [facility] of Occupat ional Health - Occupational Stress [...] [facility] [address] [facility] [address] [place] [address] Rohan Burns LPC 06/02/2025 3:00 PM EST Office Visit [facility] [address] [facility] [address] [place] [address] Macarena Chang, CHEMICAL STRENGTH TESTER-FLAME PLANER [address] [facility] [address] [place] [address] documented as of this encounter Goals Goal [...] documented as of this encounter Care Teams Library Associate Relationship Specialty Start Date End Date Molina De Anda MD PCP - General Family Medicine 02/21/24 Valerie Groves NP Nurse Practitioner Family Medicine 02/21/24 [facility]ime [facility] [address] [place] [address] Nurse Practitioner Behavioral Health 01/22/25 Rohan Burns LPC Ballistic Technician Behavioral Health 03/06/25 documented as of this encounter
--- OUTSIDE RECORDS SUMMARY | 2025-05-05 07:26 | XMS_ITS | Patient Health Record ---
Author Organization [facility] Address [address] [address], [facility] [place] [address] Care Team Providers Care Burnisher Name Role Phone SuMathew sal Unavailable [phone] Allergies Allergen (clinical drug ingredient) Drug/Non Drug Allergy documented on EMR Reaction Allergy Type Onset Date Status Penicillin hives Drug Allergy Active Reason For Referral No Information Medications Medication SIG (Take, Route, Frequency, Duration) Notes Start Date End Date Status Meloxicam 15 MG Tablet 1 tablet Orally O nce a day Active Cholecalciferol 125 MCG (500 0 UT) Capsule 1 capsule Orally Once a day; Duration: 90 days 03/14/2025 Active Prevacid 30 MG Capsule Delayed Release 1 capsule 1/2 to 1 hour before morning meal Orally Once a day Active Ambien 10 MG Tablet 1 tablet at bedtime as needed Orally Once a day Active Cymbalta 03/14/2025 Active Vitamin B12 03/14/2025 Active Meloxicam 15 MG Tablet 1 tablet Orally d aily; Duration: 30 days 04/11/2025 Active Vraylar 3 MG Capsule Oral; Duration: 30 Days Active Layla Active Detrol LA 03/14/2025 Active Flexeril 03/14/2025 Active Social History Section Notes: Patient is a current smoker. No alcohol use. 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 [address] [address], [facility] [place] [address] 04/11/2025 Mathew Hoff Assessments Encounter Date Diagnosis (ICD Code) Assessment Notes Treatment Notes Treatment Clinical Notes Section Notes 03/14/2025 Arthritis of left foot (ICD-10 - M19.072) Potential deficiency due to lack of supplementation . Lives in [place], risk due to limited sun exposure. 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 Surgery 2.5 years ago, CT scan in August showed non-union. Active lifestyle, pain worsens when barefoot. Unable to afford bone simulator. - Review Xray from 02/[address] obtained in August. - Repeat CT scan to assess bone healing - Consider bone grafting if non-union or revision persists - Monitor hardware stability 03/14/2025 Other Right Leg TEREZA 1.28 TBI .93 Left Leg TEREZA 1.30 TBI .83 Plan Of Treatment No Information Insurance Providers Payer Name Payer Address Payer Phone Subscriber Number Group Number Insured Name Patient Relationship to Insured Coverage Start Date Coverage End Date [employer] [address] [address] [place] [phone] [id number] Talia Mercado Self - patient is the insured Medical (General) History Medical History History ICD Code GERD
--- OUTSIDE RECORDS SUMMARY | 2025-05-05 07:26 | XMS_ITS | Encounter Summary ---
Author Organization [facility] Address [address] [place] [address] Care Team Providers Care Seating And Mobility Technologist Name Role Phone Shaikh NITHIN Main Primary Care Provider [phone] Shaikh NITHIN Main Primary Care Provider [phone] Molina De Anda MD Primary Care Provider [phone] Valerie Groves HEAD FILTER PRESS TENDER Unavailable [phone] Karime Dias PMHNP- Unavailable Rohan Burns [facility] Unavailable Unavailable Encounter Details Date Type Department Care Team (Late st Contact Info) Description 08/03/2023 Orders Only [facility] [address] [place] [address] Shaikh Main MD [address] [facility] [place] [address] Social History Tobacco Use Types Packs/Day Years [...] Recorded Patient Health Questionnaire-2 Score 6 08/03/2023 [facility] [place] of Occupat ional Health - Occupational Stress [...] Not at all 08/03/2023 4:27 PM Neema Huiazr MA Patient Health Questionnaire-9 Score 23 08/03/2023 [...] WAY [facility] [address] [place] [address] Rohan Burns LPC 06/02/2025 3:00 PM EST Office Visit [facility] [address] [facility] [address] [place] [address] Macarena Chang, PUNCHBOARD FILLING MACHINE OPERATOR-ELECTRICIAN MACHINE SHOP [address] [facility] [address] [place] [address] documented as of this encounter Goals Goal [...] documented as of this encounter Care Teams Seating And Mobility Technologist Relationship Specialty Start Date End Date Shaikh Main MD PCP - General Internal Medicine 04/20/23 01/07/24 Shaikh Main MD PCP - General Internal Medicine 01/08/24 02/20/24 Molina De Anda MD PCP - General Family Medicine 02/21/24 Valerie Groves NP Nurse Practitioner Family Medicine 02/21/24 Karime Dias PMHNP- [address] [place] [phone] Nurse Practitioner Behavioral Health 01/22/25 Rohan Burns LPC Wilderness Guide Behavioral Health 03/06/25 documented as of this encounter
--- OUTSIDE RECORDS SUMMARY | 2025-05-05 07:26 | XMS_ITS | Encounter Summary ---
Author Organization [facility] Address [address] [place] [address] Care Team Providers Care Judicial Assistant Name Role Phone Molina De Anda MD Primary Care Provider [phone] Valerie Groves INTERIOR HORTICULTURIST Unavailable [phone] Karime Dias PMHNP- Unavailable [phone] Rohan Burns LPC Unavailable Unavailable Reason for Visit * Reason Onset Date Comments Med Refill Letter for School/Work 02/01/2025 Encounter Details Date Type Department Care Team (Late st Contact Info) Description 02/01/2025 Refill [facility] [place] [facility] [address] [place] [address] Pascale Arana NP [address] [place] [address] Bipolar disorder with severe depression (HCC) Social [...] Recorded Patient Health Questionnaire-2 Score 5 01/22/2025 [facility] [place] of Occupat ional Health - Occupational Stress [...] [address] [place] [address] [place] [address] Rohan Burns LPC 06/02/2025 3:00 PM EST Office Visit [facility] [address] [facility] [address] [place] [address] Angeli-Macarena Santos, MUSICAL INSTRUMENTS ASSEMBLER-ANALYSIS SPECIALIST [address] [place] [address] [place] [address] documented as of this encounter Goals Goal [...] documented as of this encounter Care Teams Judicial Assistant Relationship Specialty Start Date End Date Molina De Anda MD PCP - General Family Medicine 02/21/24 Valerie Groves NP Nurse Practitioner Family Medicine 02/21/24 [facility] [address] [facility] [address] [place] [address] Nurse Practitioner Behavioral Health 01/22/25 Rohan Burns LPC Supervisor Open Hearth [employer] [facility] 03/06/25 documented as of this encounter
--- OUTSIDE RECORDS SUMMARY | 2025-05-05 07:27 | XMS_ITS | Clinical Summary ---
Author Organization [facility] Address [address] [place] [address] Care Team Providers Care Handbag Framer Name Role Phone Molina De Anda MD Primary Care Provider [phone] Valerie Groves RISK ENGINEER Unavailable [phone] Karime Dias PMHNP-BC Unavailable [phone] Rohan Burns [facility] Unavailable Unavailable Allergies Active Allergy Reactions Criticality Noted Date Comments Penicillins Hives 07/04/2023 Medications meloxicam (Mobic) 15 MG tablet Take 15 mg by mouth Daily as needed for mild pain 5 Active fexofenadine (Layla Allergy) 180 MG tabletIndication s:Seasonal allergies Take 1 tablet (180 mg) by mouth Daily 30 tablet 5 5 Active fluticasone (Flonase) 50 MCG/ACT nasal sprayIndications :Environmental and seasonal allergies Administer 2 sprays into each nostril Daily Shake gently. Before first use, prime pump. After use, clean tip and replace cap. 16 g 5 5 Active gabapentin (Neurontin) 300 MG capsuleIndicatio ns:Fibromyalgia Take 1 capsule (300 mg) by mouth in the morning and 1 capsule (300 mg) in the evening and 1 capsule (300 mg) before bedtime. 90 capsule 5 5 Active albuterol HFA 90 mcg/act inhalerIndicatio ns:URTI (acute upper respiratory infection),Non-r ecurrent acute suppurative otitis media of both ears without spontaneous rupture of tympanic membranes Inhale 2 puffs every 6 (six) hours if needed for wheezing 8 g 1 5 Active zolpidem (Ambien) 10 MG tabletIndication s:Psychophysiolo gical insomnia Take 1 tablet (10 mg) by mouth as needed at bedtime for sleep 30 tablet 2 5 Active cyanocobalamin (Vitamin B-12) 1000 MCG tablet Take 1,000 mcg by mouth in the morning. Active cyclobenzaprine (Flexeril) 10 MG tablet Take 10 mg by mouth 3 (three) times a day as needed Active estradiol (Estrace) 0.1 MG/GM vaginal cream Insert 1.5 g into the vagina 2 (two) times a week 5 Active tolterodine LA (Detrol LA) 4 MG 24 hr capsule Take 4 mg by mouth Daily 5 Active lansoprazole (Prevacid) [address] capsuleIndicatio ns:Gastroesophag eal reflux disease, unspecified whether esophagitis present Take 1 capsule (30 mg) by mouth in the morning. Take before meals. 90 capsule 1 5 05/27/20 25 Active Cariprazine HCl (Vraylar) 3 MG capsuleIndicatio ns:JESSIKA (generalized anxiety disorder),Severe episode of recurrent major depressive disorder, without psychotic features (HCC),PTSD (post-traumatic stress disorder) Take 3 mg by mouth Daily for 14 days 14 capsule 5 Active Cariprazine HCl (Vraylar) 4.5 MG capsuleIndicatio ns:JESSIKA (generalized anxiety disorder),Severe episode of recurrent major depressive disorder, without psychotic features (HCC),PTSD (post-traumatic stress disorder) Take 4.5 mg by mouth Daily After taking 3 mg dose daily for 14 days, begin taking 4.5 mg daily. 30 capsule 1 5 Active DULoxetine (Cymbalta) [address] capsuleIndicatio ns:Fibromyalgia Take 1 capsule (60 mg) by mouth Daily in the Morning 30 capsule 5 5 Active DULoxetine (Cymbalta) [address] capsuleIndicatio ns:Fibromyalgia Take 1 capsule (30 mg) by mouth at bedtime 30 capsule 5 5 07/02/20 25 Active Active Problems Problem Noted Date Diagnosed Date JESSIKA (generalized anxiety disorder) 03/06/2025 Spinal stenosis, lumbosacral region 02/05/2025 Spinal stenosis, [...] of the risks of continued smoking: stroke, DC, all forms of cancer, lung disease, and [...] of the risks of continued smoking: stroke, DC, all forms of cancer, lung disease, and [...] of the risks of continued smoking: stroke, DC, all forms of cancer, lung disease, and [...] of the risks of continued smoking: stroke, DC, all forms of cancer, lung disease, and [...] of the risks of continued smoking: stroke, DC, all forms of cancer, lung disease, and [...] abdominal wall 08/12/2024 11/20/2024 Overview (08/12/2024): Dori [id number] EXP: 10/22/2026 LOT # [id number] Assessment & Plan (08/12/2024 5:50 PM EST): [...] Encounters Date Type Department Care Team Description 04/09/2025 4:30 PM EDT Social Work [facility] [place] [facility] [address] [place] [address] [place] [address] Rohan Burns LPC JESSIKA (generalized anxiety disorder) ; Severe episode of recurrent major depressive disorder, without psychotic features (HCC); PTSD (post-traumatic stress disorder) 04/09/2025 Bamboo flowsheet [facility] [place] [facility] [address] [place] [address] [place] [address] Rohan Burns LPC 04/09/2025 Travel 04/03/2025 9:00 AM EDT Telemedicine [facility] [address] [place] [address] [facility] JESSIKA (generalized anxiety disorder) ; Severe episode of recurrent major depressive disorder, without psychotic features (HCC); PTSD (post-traumatic stress disorder) ; Insomnia, unspecified type; Fibromyalgia 04/03/2025 Travel 03/29/2025 Refill [facility] [place] [facility] [address] [place] [address] [place] [address] [facility] Di[facility] Severe episode of recurrent major depressive disorder, without psychotic features (HCC) 03/25/2025 2:30 PM EDT Social Work [facility] [place] [facility] [address] [place] [address] [place] [address] Rohan Burns LPC JESSIKA (generalized anxiety disorder) ; Severe episode of recurrent major depressive disorder, without psychotic features (HCC); PTSD (post-traumatic stress disorder) 03/25/2025 Bamboo flowsheet [facility] [place] [facility] [address] [place] [address] [place] [address] Rohan Burns LPC 03/25/2025 Travel 03/18/2025 Travel 03/10/2025 Results Follow-Up [facility] [place] [facility] [address] [place] [address] Natacha Lyn MA ALL CBC WITH AUTO DIFF, [facility] IRON 03/06/2025 3:00 PM EDT Social Work [facility] [place] [facility] [address] [place] [address] [place] [address] Rohan Burns LPC JESSIKA (generalized anxiety disorder) ; Severe episode of recurrent major depressive disorder, without psychotic features (HCC); PTSD (post-traumatic stress disorder) 03/06/2025 Bamboo flowsheet [facility] [place] [facility] [address] [place] [address] [place] [address] Rohan Burns LPC 03/06/2025 Travel 03/05/2025 Clinisync Result Encounter [facility] External Department Unsolicited Pascale Arana NP 02/26/2025 Clinisync Result Encounter [facility]OM[facility] External Department Unsolicited Provider, Generic External Data 02/26/2025 Refill [facility] [place] [facility] [address] [place] [address] Pascale Arana NP Gastroesophageal reflux disease, unspecified whether esophagitis present (Primary Dx) 02/26/2025 Telephone [facility] [place] [facility] [address] [place] [address] Pascale Arana NP 02/25/2025 11:30 AM EDT Office Visit [facility] [place] [facility] [address] [place] [address] Pascale Arana NP Severe episode of recurrent major depressive disorder, without psychotic features (HCC) (Primary Dx); Cigarette nicotine dependence without complication; PTSD (post-traumatic stress disorder) ; Class 1 obesity due to excess calories without serious comorbidity with body mass index (BMI) of 32.0 to 32.9 in adult; Iron deficiency anemia secondary to inadequate dietary iron intake; Primary insomnia 02/25/2025 Abstract [facility] [place] [facility] [address] [place] [address] Pascale Arana NP 02/24/2025 3:00 PM EDT Office Visit [facility] [place] [facility] [address] [place] [address] [place] [address] Karime Dias, [facility] JESSIKA (generalized anxiety disorder) ; Severe episode of recurrent major depressive disorder, without psychotic features (HCC); PTSD (post-traumatic stress disorder) ; Insomnia, unspecified type; Sleep apnea, unspecified type 02/24/2025 Bamboo flowsheet [facility] [place] [facility] [address] [facility] [address] [place] [address] Karime Dias [facility] 02/24/2025 Travel 02/21/2025 Abstract [facility] [place] [facility] [address] [place] [address] Pascale Arana NP 02/20/2025 Refill [facility] [place] [facility] [address] [place] [address] Pascale Arana NP Psychophysiological insomnia 02/19/2025 Clinisync Result Encounter [facility]OM[facility] External Department Unsolicited Provider, Generic External Data 02/18/2025 Abstract [facility] [place] [facility] [address] [place] [address] Pascale Arana NP 02/17/2025 Telephone [facility] [place] [facility] [address] [place] [address] Pascale Arana NP Error (VOID this visit) 02/11/2025 Refill [facility] [place] [facility] [address] [place] [address] Pascale Arana NP UTI (urinary tract infection), uncomplicated; Class 1 obesity due to excess calories without serious comorbidity in adult, unspecified BMI; BMI 32.0-32.9,adult 02/06/2025 Refill [facility] [place] [facility] [address] [place] [address] Pascale Arana NP URTI (acute upper respiratory infection); Non-recurrent acute suppurative otitis media of both ears without spontaneous rupture of tympanic membranes 02/05/2025 Clinisync Result Encounter [facility] External Department Unsolicited Provider, Generic External Data 02/05/2025 Clinisync Result Encounter [facility] External Department Unsolicited Provider, Generic External Data from Last 3 Months Family History Medical [...] week 08/07/2023 How often do you attend [facility] or [facility]ational services? Never 08/07/2023 Do you [...] Patient Health Questionnaire-2 Score 5 01/22/2025 [facility] - Occupational Stress Questionnaire Answer [...] [facility] [address] [facility] [address] [place] [address] Rohan Burns LPC 06/02/2025 3:00 PM EST Office Visit [facility] [address] [facility] [address] [place] [address] Macarena Chang APRN-EXTRUSION DIE TEMPLATE MAKER [address] [facility] [address] [place] [address] Goals Goal Patient Goal Type Associated Problems Recent Progress Patient-Stated? Author Help patient manage antidepressant medication Care Plan Patient on antidepressant monitoring plan No Shaikh Main MD Procedures Procedure Name Priority Date/Time Associated Diagnosis Comments [facility] IRON Routine 03/05/2025 5:03 PM EDT ALL CBC WITH AUTO DIFF Routine 03/05/2025 5:03 PM EDT SEGMENTAL BLOOD PRESSURE 02/26/2025 3:34 PM EDT XR FOOT LT MIN 3V 02/19/2025 3:0 3 PM EDT MR LUMBAR SPINE WO CON 02/05/2025 2:18 PM EDT MR CERVICAL SPINE WO CONTRAST 02/05/2025 12:16 PM EDT from Last 3 Months Results * [facility] IRON (03/05/2025 5:03 PM EDT) [facility] IRON 78.0 50.0 - 170.0 ug/dL TBH 03/05/2025 5:03 PM EDT 03/05/2025 5:06 PM EDT Narrative CLINISYNC - 03/05/2025 5:54 PM EDT us Pascale Arana NP [facility] Final Result [facility] * (ABNORMAL) ALL CBC WITH AUTO DIFF (03/05/2025 5:03 PM EDT) TB WBC 6.6 4.0 - 11.0 10 3/uL TBH TBH RBC 3.79(L) 4.20 - 5.40 10 6/uL TBH TBH HGB 11.8(L) 12.0 - 16.0 g/dL TBH TBH HCT 37.2 36.0 - 48.0 % TBH TBH MCV 98.2 81.0 - 99.0 fL TBH TBH MCH 31.1 26.7 - 34.0 pg TBH TBH MCHC 31.7 29.9 - 35.2 g/dL TBH TBH RDW 15.3(H) 11.0 - 15.0 % TBH TBH PLT 255 150 - 450 10 3/uL TBH TBH MPV 10.0 9.5 - 13.5 fL TBH NEUTROPHILS PERCENT AUTO 49.9 43.0 - 75.0 % TBH LYMPHOCYTES PERCENT AUTO 35.2 20.5 - 60.0 % TBH MONOCYTES PERCENT AUTO 5.5 1.7 - 12.0 % TBH TBH EO % 7.9(H) 0.9 - 7.0 % TBH BASOPHILS PERCENT AUTO 1.2 0.2 - 2.0 % TBH IMMATURE GRANULOCYTES PCT AUTO 0.3 0.0 - 0.5 % TBH NEUTROPHILS ABSOLUTE AUTO 3.3 1.4 - 6.5 10 3/uL TBH LYMPHOCYTES ABSOLUTE AUTO 2.3 1.2 - 3.8 10 3/uL TBH MONOCYTES ABSOLUTE AUTO 0.4 0.3 - 0.8 10 3/uL TBH TBH EO # 0.5 0.0 - 0.7 10 3/uL TBH BASOPHILS ABSOLUTE AUTO 0.1 0.0 - 0.1 10 3/uL TBH IMMATURE GRANULOCYTES ABS AUTO 0.02 0.00 - 0.03 10 3/uL TBH 03/05/2025 5:03 PM EDT 03/05/2025 5:06 PM EDT Narrative CLINISYNC - 03/05/2025 5:24 PM EDT us Pascale Arana NP CLINISYNC Final Result [facility] * SEGMENTAL BLOOD PRESSURE (02/26/2025 3:34 PM EDT) Anatomical Region Laterality Modality Radiographic Maeve ging 02/26/2025 3:34 PM EDT Narrative 02/27/2025 9:07 AM EDT The [address] [address] Cardiology Report Signed Patient: TALIA RUTHERFORD MR#: [id number] : 1970 Acct:[id number] Age/Sex: 54 / F ADM Date: 02/26/25 Loc: CARD Attending Dr: Michael LAZAR Ordering Physician: Michael Escobedo Date of Service: 02/26/25 Procedure(s): CA segmental UE or LE PONCE Accession Number(s): [id number] cc: Pascale Arana NP; Michael Escobedo The [facility] Test Date: 2025-02-26 Pat Name: TALIA RUTHERFORD Department: Room: - Gender: Female Outside Property Agent: Cari Nichole : 1970 Requested By: Michael Escobedo Order Number: [id number] Reading MD: SCOTT PARKINSON M.D. Interpretive Statements [...] 02/27/25 0907 02/27/25 0907 DD/ 1534 TD/TT: Muskrat Trapper: Procedure Note Radiology, Radiologist, MD - 02/27/2025 [place] [address] Cardiology Report Signed Patient: TALIA RUTHERFORD DMR#: [id number] : 1970Acct:[id number] Age/Sex: 54 / FADM Date: 02/26/25 Loc: CARD Attending Dr: Michael LAZAR Ordering Physician: Michael Escobedo Date of Service: 02/26/25 Procedure(s): CA segmental UE or LE PONCE Accession Number(s): [id number] cc: Pascale Arana NP; Michael Escobedo [facility] Test Date: 2025-02-26 Pat Name: TALIA RUTHERFORD Department: Room: - Gender: Female Outside Property Agent: Cari Nichole : 1970 Requested By: Michael Escobedo Order Number: [id number] Reading MD: SCOTT PARKINSON M.D. Interpretive Statements [...] By:02/27/25 0907 02/27/25 0907 DD/ 1534 TD/TT: Muskrat Trapper: us Generic External Data Provider IMG XR PROCEDURES Final Result * XR FOOT LT MIN 3V (02/19/2025 3:03 PM EDT) Anatomical Region Laterality Modality Other 02/19/2025 3:03 PM EDT Narrative 02/19/2025 3:06 [place] [address] XRay Report Signed Patient: TALIA RUTHERFORD MR#: [id number] : 1970 Acct:[id number] Age/Sex: 54 / F ADM Date: 02/19/25 Loc: [facility] Attending Dr: Michael LAZAR Ordering Physician: Michael Escobedo Date of Service: 02/19/25 Procedure(s): XR foot LT min 3V Accession Number(s): [id number] cc: Pascale Arana NP; Michael Escobedo The [place] [id number] Patient Name: TALIA RUTHERFORD MRN: [id number] date: 1970 Sex: F Assigned Patient Location: [facility] Current Patient Location: [facility] Accession/Order Number: [id number] Exam Date: 02/19/2025 10:39 Report Date: 02/19/2025 [...] Jr., D.O. 02/19/2025 3:03 PM Dictation Location: [place] [address] Electronically authenticated by: [id number] Y Date: 02/19/2025 15:03 Dictated By: Merlin Massey M.D. Signed By: 02/19/25 1506 DD/ 1503 TD/TT: Muskrat Trapper: Procedure Note Radiology, Radiologist, MD - 02/19/[address] [address] XRay Report Signed Patient: TALIA RUTHERFORD DMR#: [id number] : 1970Acct:[id number] Age/Sex: 54 / FADM Date: 02/19/25 Loc: RAD Attending Dr: Michael LAZAR Ordering Physician: Michael Escobedo Date of Service: 02/19/25 Procedure(s): XR foot LT min 3V Accession Number(s): [id number] cc: Pascale Arana NP; Michael Escobedo [place] [address] Patient Name: TALIA RUTHERFORD MRN: [id number] date: 1970 Sex: F Assigned Patient Location: RAD Current Patient Location: RAD Accession/Order Number: [id number] Exam Date: 02/19/2025 10:39 Report Date: 02/19/2025 [...] Jr., D.O. 02/19/2025 3:03 PM Dictation Location: [place] [address] Electronically authenticated by: [id number] Y Date: 5:03 Dictated By: Merlin Massey M.D. Signed By:02/19/25 1506 DD/ 1503 TD/TT: Muskrat Trapper: us Generic External Data Provider CLINISYNC IMAGING Final Result * MR LUMBAR SPINE WO CON (02/05/2025 2:18 PM EDT) Anatomical Region Laterality Modality Other 02/05/2025 2:18 PM EDT Narrative 02/05/2025 2:21 PM EDT The [address] [address] Magnetic Resonance Report Signed Patient: TALIA RUTHERFORD MR#: [id number] : 1970 Acct:[id number] Age/Sex: 54 / F ADM Date: 02/04/25 Loc: MRI Attending Dr: Bandar Eden M.D. Ordering Physician: Bandar Eden M.D. Date of Service: 02/04/25 Procedure(s): MR lumbar spine wo con Accession Number(s): [id number] cc: Pascale Arana NP; Bandar Eden M.D. The [place] [id number] Patient Name: TALIA RUTHERFORD MRN: [id number] date: 1970 Sex: F Assigned Patient Location: MRI Current Patient Location: Accession/Order Number: [id number] Exam Date: 02/05/2025 12:16 Report Date: 02/05/2025 [...] Circumferential disc bulge with moderate facet arthropathy. Lyjn-kg-isbpjzpe right-sided and mild left-sided neural foraminal narrowing . 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 Impression dictated by: Mushtaq Antony M.D. 02/05/2025 2:18 PM Dictation Location: [place] [address] Electronically authenticated by: [id number] Y Date: 02/05/2025 14:18 Dictated By: Mushtaq Antony M.D. Signed By: 02/05/25 1421 DD/ 1418 TD/TT: Muskrat Trapper: Procedure Note Radiology, Radiologist, MD - 02/05/2025 [place] [address] Magnetic Resonance Report Signed Patient: TALIA RUTHERFORD DMR#: [id number] : 1970Acct:[id number] Age/Sex: 54 / FADM Date: 02/04/25 Loc: MRI Attending Dr: Bandar Eden M.D. Ordering Physician: Bandar Eden M.D. Date of Service: 02/04/25 Procedure(s): MR lumbar spine wo con Accession Number(s): [id number] cc: Pascale Arana RISK ENGINEER; Bandar Eden M.D. The [place] [id number] Patient Name: TALIA RUTHERFORD MRN: [id number] date: 1970 Sex: F Assigned Patient Location: MRI Current Patient Location: Accession/Order Number: [id number] Exam Date: 02/05/2025 12:16 Report Date: 02/05/2025 [...] Circumferential disc bulge with moderate facet arthropathy. Pwyf-jj-zscevxee right-sided and mild left-sided neural foraminalnarrowing . 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 Impression dictated by: Mushtaq Antony M.D. 02/05/2025 2:18 PM Dictation Location: [place] [address] Electronically authenticated by: [id number] Y Date: 4:18 Dictated By: Mushtaq Antony M.D. Signed By:02/05/25 1421 DD/ 1418 TD/TT: Muskrat Trapper: us Generic External Data Provider CLINISYNC IMAGING Final Result * MR cervical spine wo contrast (02/05/2025 12:16 PM EDT) Anatomical Region Laterality Modality Spine, C-spine Magnetic Resonan ce 02/05/2025 12:1 6 PM EDT Narrative 02/05/2025 12:18 PM EDT The [address] [address] Magnetic Resonance Report Signed Patient: TALIA RUTHERFORD MR#: [id number] : 1970 Acct:[id number] Age/Sex: 54 / F ADM Date: 02/04/25 Loc: MRI Attending Dr: Bandar Eden M.D. Ordering Physician: Bandar Eden M.D. Date of Service: 02/04/25 Procedure(s): MR cervical spine wo con Accession Number(s): [id number] cc: Pascale Arana RISK ENGINEER; Bandar Eden M.D. [place] [address] Patient Name: TALIA RUTHERFORD MRN: [id number] date: 1970 Sex: F Assigned Patient Location: MRI Current Patient Location: Accession/Order Number: [id number] Exam Date: 02/05/2025 12:10 Report Date: 02/05/2025 [...] Uncovertebral spurring greatest right. Moderate right and mymt-oo-uigxdxif left-sided neural foraminal narrowing. Mild canal narrowing. C5-6: Broad-based disc bulge with uncovertebral spurring, greatest left. Moderate right-sided moderate to severe left-sided neural foraminal narrowing. Mild central canal stenosis. C6-C7: Broad-based disc osteophyte complex with uncovertebral spurring. Eili-fj-zeyzrskn right moderate severe left neural foraminal narrowing. Lgfy-rt-lsnrvywv canal narrowing. C7-T1: Minimal vertebral hypertrophy. Moderate facet arthropathy. Canal and patent. Mild foraminal narrowing. MR/MR cervical spine wo con IMPRESSION: Overall multilevel degenerative changes with up to adxb-lt-pteyofhe central canal narrowing. Multilevel foraminal encroachment as noted above. Impression dictated by: Mushtaq Antony M.D. 02/05/2025 12:16 PM Dictation Location: [place] [address] Electronically authenticated by: [id number] Y Date: 02/05/2025 12:16 Dictated By: Mushtaq Antony M.D. Signed By: 02/05/25 1218 DD/ TD/TT: Muskrat Trapper: Procedure Note Radiology, Radiologist, - 02/05/2025 [place] [address] Magnetic Resonance Report Signed Patient: TALIA RUTHERFORD DMR#: [id number] : 1970Acct:[id number] Age/Sex: 54 / FADM Date: 02/04/25 Loc: MRI Attending Dr: Bandar Eden M.D. Ordering Physician: Bandar Eden M.D. Date of Service: 02/04/25 Procedure(s): MR cervical spine wo con Accession Number(s): [id number] cc: Pascale Arana RISK ENGINEER; Bandar Eden M.D. The [place] [id number] Patient Name: TALIA RUTHERFORD MRN: [id number] date: 1970 Sex: F Assigned Patient Location: MRI Current Patient Location: Accession/Order Number: [id number] Exam Date: 02/05/2025 12:10 Report Date: 02/05/2025 [...] Uncovertebral spurring greatest right. Moderate right and tpqf-wd-oiztclwk left-sided neural foraminal narrowing. Mild canal narrowing. C5-6: Broad-based disc bulge with uncovertebral spurring, greatest left. Moderate right-sided moderate to severe left-sided neural foraminalnarrowing. Mild central canal stenosis. C6-C7: Broad-based disc osteophyte complex with uncovertebral spurring. Btsz-xt-ccybcvhg right moderate severe left neural foraminal narrowing. Udqw-xw-ufdmrwvy canal narrowing. C7-T1: Minimal vertebral hypertrophy. Moderate facet arthropathy. [place] patent. Mild foraminal narrowing. MR/MR cervical spine wo con IMPRESSION: Overall multilevel degenerative changes with up to ilfu-pa-kyaaqccmbghjioh canal narrowing. Multilevel foraminal encroachment as noted above. Impression dictated by: Mushtaq Antony M.D. 02/05/2025 12:16 PM Dictation Location: [place] [address] Electronically authenticated by: [id number] Y Date: 2:16 Dictated By: Mushtaq Antony M.D. Signed By:02/05/25 1218 DD/ 1216 TD/TT: Muskrat Trapper: Generic External Data Provider IMG MRI PROCEDURE S Final Result from Last 3 Months Additional Health Concerns Active Problems Noted Date Diagnosed Date Patient on antidepressant monitoring plan 2023 Insurance [facility] Address: [facility] [id number] [place] [phone] Care Teams Handbag Framer Relationship Specialty Start Date End Date Molina De Anda MD PCP - General Family Medicine 02/21/24 Valerie Groves NP Nurse Practitioner Family Medicine 02/21/24 Karime Dias [facility]- [address] [facility] [address] [place] [address] Nurse Practitioner Behavioral Health 01/22/25 Rohan Burns LPC Beauty Culturist Behavioral Health 03/06/25
--- OUTSIDE RECORDS SUMMARY | 2025-05-05 07:27 | XMS_ITS | CCD ---
Author Organization [facility] Care Team Providers Care Insulator Tester Name Role Phone PHYSICIAN, DEFAULT Admitting Unavailable PHYSICIAN, DEFAULT Attending Unavailable TYLER, ROBERTO Primary Care Unavailable Kristin Quintana Unavailable MEET, KAJAL Admitting Unavailable MEET, KAJAL [...] Unavailable TYLER, DR VILLALOBOS Primary Care Unavailable KRISTIN, TAWANA Dong Consulting Unavailable HILLBASHIR Consulting Unavailable HIGHLANDER, TAWANA Dong Admitting Unavailable HIGHLANDER, TAWANA Dong Attending Unavailable HOUSE, DR VILLALOBOS Primary Care Unavailable DAMON, DR ELLIOT Denis Consulting Unavailable KRISTIN, TAWANA Dong Consulting Unavailable AGUBOSIMEYAL Consulting Unavailable LYDIA ., ANITA LUU Consulting Unavailable JUNGERMANNREBECCA Consulting Unavailable ROMMEL, DR TAMIKO Dickens Consulting Unavailable TYLER, DR VILLALOBOS Primary Care Unavailable MEET, KAJAL Attending Unavailable MEET, KAJAL Admitting Unavailable MEET, KAJAL Consulting Unavailable HOUSE, DR VILLALOBOS Admitting Unavailable HOUSE, DR VILLALOBOS Attending Unavailable HOUSE, DR VILLALOBOS Primary Care Unavailable TYLER, DR VILLALOBOS Consulting Unavailable HIGHLANDER, TAWANA Dong Admitting Unavailable HIGHLANDER, TAWANA Dong Attending Unavailable HOUSE, DR VILLALOBOS Primary Care Unavailable ROMMEL, DR TAMIKO Dickens Consulting Unavailable HIGHLSHAMIKA, TAWANA Dogn Consulting Unavailable HIGHLANDER, TAWANA Dong Admitting Unavailable HIGHLANDER, TAWANA Dong Attending Unavailable TYLER, DR VILLALOBOS Primary Care Unavailable DAMON, DR ELLIOT Denis Consulting Unavailable HIGHLANDER, TAWANA Dong Consulting Unavailable WITHERELL, BATSHEVAMITH Attending Unavailable CAROL WEBB Attending Unavailable SHAIKH MAIN Primary Care Physician Shaikh Main MD Primary Care Provider Ron Palomares Attending Unavailable Segun HOLLOWAY Attending Unavailable Segun HOLLOWAY Attending Unavailable MD Tyson Collazo Attending Provider [phone] Molina De Anda MD Primary Care Provider [place] [employer]ILD[employer], Angel Luis Unavailable [phone] [place] [employer]ILD[employer], Angel Luis Unavailable Arun PMHNP-, Eunice Unavailable No Pcp, No Pcp Primary Care Provider UnavailRohan Crooks LPC Unavailable Unavailable Meek WELLER, Flores Gutierrez Attending Unavailable Meek WELLER, Flores Gutierrez Attending Unavailable Shun Arshad MD Attending Provider [phone] Pascale Arana Primary Care Provider Molina De Anda MD Primary Care Provider Germain [employer]ILD[employer], Angel Luis Unavailable [phone] SHELIA MUNIZ Attending Unavailable NO PCP, NO PCP Primary Care Unavailable JOVON ASIF Attending Unavailable SHELIA MUNIZ Referring Unavailable PASCALE ARANA Primary Care Unavailable DerrickhPascale Geronimo Primary Care Provider ANGEL LUIS GROVES Attending Unavailabl e DERRICKHHOLZ, PASCALE Attending Unavailable AICHHOLZ, PASCALE Attending Unavailable AICHHOLZ, PASCALE Attending Unavailable DERRICKHHOLZ, PASCALE Attending Unavailable EUNICE DIAS Attending Unavailable DERRICKHCAREY, PASCALE Referring Unavailable EUNICE DIAS Attending Unavailable DERRICKHCAREY, PASCALE Attending Unavailable ROHAN WATERS Attending Unavailable ROHAN WATERS Attending Unavailable EUNICE DIAS Attending Unavailable ROHAN WATERS Attending Unavailable ANGEL LUIS GROVES Attending Unavailabl e SUMIT, PASCALE Attending Unavailable Pascale Ochoa Primary Care Provider Shun Arshad MD Other Provider Loc Aguayo MD Attending Provider Pascale Ochoa Attending Provider [phone] Shun Arshad Attending Unavailable Shun Arshad Admitting Unavailable Pascale Arana Primary Care Unavailable Allergies Allergy Classification Reported Allergen(s) Allergy Type Date of Onset Reaction(s) Facility (5 sources) penciclovir; Translations: [penciclovir] Drug Allergy 5 [facility] (9 sources) Penicillins; Translations: [PENICILLINS] Drug allergy (disorder) 4 [facility] (20 sources) Penicillin G Drug Allergy 3 Unknown [facility] (20 sources) Penicillins Propensity to adverse reactions 3 [facility] (4 sources) Penicillins Propensity to adverse reactions to drug 3 [facility] Work Phone: (1 source) Penicillins Drug allergy (disorder) 5 [facility] Medications Current Medications Medication Drug Class(es) Dates Sig (Normalized) Sig (Original) [id number] 200 actuat albuterol 0.09 mg/actuat metered dose inhaler (20 sources) beta2-Adrenergic Agonist Start: 04-01-2025 take 1 puff(s) by inhalation every six hours as needed for wheezing Albuterol Sulfate 90 mcg/actuation HFA aerosol inhaler Active 2 PUFF INHALATION Every 6 hours as needed for shortness of breath or wheezing 8.5 April 01, 2025 11:36am Complies with drug therapy Start: 03-25-2025 End: 04-01-2025 Albuterol Sulfate 90 mcg/act uation HFA aerosol inhaler Discontinued INHALATION March 25, 2025 12:00am April 01, 2025 11:38am Start: 02-06-2025 End: 03-08-2025 take 2 puff(s) [...] 05/24/23 Status: Ordered ARIPiprazole Act ada cariprazine 4.5 mg oral capsule (20 sources) Atypical Antipsychotic Start: 04-03-2025 End: 05-03-2025 take 1 capsule by mouth once daily Cariprazine (Vraylar) 4.5 mg capsule Active 4.5 MG PO Daily April 26, 2025 12:00am Complies with drug therapy Start: 04-01-2025 End: 04-03-2025 take 1 capsule by mouth once daily Cariprazine HCl (Vraylar) 1.5 MG capsule Indications: Severe episode of recurrent major depressive disorder, without psychotic features (HCC) Take 1 capsule by mouth Daily for 3 days 3 capsule 04/01/2025 04/03/2025 Discontinued Start: 02-24-2025 End: 04-26-2025 Cariprazine (Vraylar) 3 mg c apsule Discontinued MG PO March 25, 2025 12:00am April 26, 2025 10:23am Start: 01-22-2025 End: 02-24-2025 take 1 capsule by mouth once daily Cariprazine HCl (Vraylar) 1.5 MG capsule Indications: Severe episode of recurrent major depressive disorder, without psychotic features (HCC) Take 1.5 mg by mouth Daily 30 capsule 01/22/2025 02/24/2025 Discontinued cholecalciferol 0.125 mg oral capsule (3 sources) Vitamin D Start: 03-25-2025 cyclobenzaprine hydrochloride 10 mg oral tablet (20 sources) Muscle Relaxant Start: 01-20-2025 End: 04-26-2025 take 1 tablet by mouth three times [...] Norepinephrine Reuptake Inhibitor Start: 03-13-2024 End: 07-02-2025 Duloxetine 30 mg capsule,delayed release(DR/EC) Active MG PO March 25, 2025 12:00am Complies with drug therapy Start: 02-29-2024 End: 05-03-2025 Duloxetine 60 mg capsule,del ayed release(DR/EC) Active MG PO March 25, 2025 12:00am Complies with drug therapy Start: 07-03-2023 End: 10-01-2023 take 1 capsule by mouth in the morning DULoxetine (Cymbalta) [address] capsule Indications: Fibromyalgia Take 1 capsule (60 mg) by mouth in the morning. 30 capsule 2 07/03/2023 10/01/2023 Active estradiol 0.1 mg/ml vaginal cream (18 sources) Estrogen Start: 04-26-2025 Estradiol 0.01 % (0.1 mg/gram) cream Active 1 GM VAGINAL Twice a Week April 26, 2025 12:00am Complies with drug therapy Start: 02-06-2025 estradioL (EST RACE) 0.01 % (0.1 mg/gram) vaginal cream Indications: Cystocele with second degree uterine prolapse , History of reconstructive repair of rectocele , Urge urinary incontinence Apply pea sized amount ( 1.5 g) to vaginal introitus nightly for 4 weeks then 1-2 times per week thereafte 42.5 g 2 02/06/2025 Active Start: 02-06-2025 estradiol (Est race) 0.1 MG/GM vaginal cream Insert 1.5 g into the vagina 2 (two) times a week 02/06/2025 Active eszopiclone 1 mg oral tablet [...] sources) Histamine-1 Receptor Antagonist Start: 02-29-2024 End: 04-07-2025 take 1 tablet by mouth once daily Fexofenadine 180 mg tablet Active 180 MG PO Daily April 07, 2025 8:36pm Complies with drug therapy Start: 06-07-2023 take 1 tablet by ayush [...] dose nasal spray (20 sources) Corticosteroid Start: 03-25-2025 Fluticasone Propionate 50 mcg/actuation spray,suspension Active INTRANASAL March 25, 2025 12:00am Complies with drug therapy Start: 11-18-2024 take 2 spray(s) nasa l route in the morning fluticasone propionate (FLONASE) [...] capsule (20 sources) Anti-epileptic Agent Start: 11-18-2024 End: 04-26-2025 take 1 capsule by mouth three times daily gabapentin (NEURONTIN) 300 mg capsule Take 1 capsule (300 mg total) by mouth 3 (three) times a day. 11/18/2024 Active Start: 06-11-2024 End: 12-18-2024 take [...] Discontinued (Therapy completed) Start: 05-24-2023 End: 05-27-2025 Lansoprazole 30 mg capsule,d elayed release(DR/EC) Active MG PO March 25, 2025 12:00am Complies with drug therapy Lansoprazole Act ada meloxicam 15 mg oral tablet (20 sources) Nonsteroidal Anti-inflammatory Drug Start: 10-02-2024 take 1 tablet by mouth in the morning meloxicam (MOBIC) 15 mg tablet Take 1 tablet (15 mg total) by mouth in the morning. 10/02/2024 Active Meloxicam Active 24 hr mirabegron 50 mg extended release oral tablet (1 source) beta3-Adrenergic Agonist Start: 05-02-2025 take 1 tablet by mouth every twenty-four hours in the morning mirabegron (MYRBETRIQ) 50 mg tablet extended release 24 hr Indications: Cystocele with second degree uterine prolapse , History of reconstructive repair of rectocele , Urge urinary incontinence Take 1 tablet (50 mg total) by mouth in the morning. 30 tablet 5 05/02/2025 Active pantoprazole 40 mg delayed release oral [...] completed) pregabalin (1 source) Pregabalin Activ e sucralfate 1000 mg oral tablet (20 sources) Aluminum Complex Start: 04-30-2025 take 1 tablet by mouth once before mealtime Sucralfate (Carafate) 1 gram tablet Active 1 GM PO 3x/Day before meals & bedtime 120 April 30, 2025 12:00am Complies with drug therapy Start: 02-26-2024 End: 08-12-2024 take 1 tablet by mouth every six hours as needed sucralfate (Carafate) 1 g tablet Take 1 g by mouth every 6 (six) hours if needed 02/26/2024 08/12/2024 Discontinued (Therapy completed) sulfamethoxazole 800 mg / trimethoprim 160 mg oral tablet (11 sources) Dihydrofolate Reductase Inhibitor Antibacterial, Sulfonamide Antimicrobial Start: 11-14-2024 End: 11-21-2024 take 1 tablet by mouth every twelve hours for urinary tract infection and urinary tract infection sulfamethoxazole-trimethoprim (Bactrim DS) 800-160 MG per tablet Indications: [...] capsule (20 sources) Cholinergic Muscarinic Antagonist Start: 12-21-2024 take 1 capsule by mouth every twenty-fou r hours in the morning tolterodine LA (DETROL LA) 4 mg 24 hr capsule Take 1 capsule (4 mg total) by mouth in the morning. 12/21/2024 Active Start: 05-24-2023 End: 02-16-2025 take 1 capsule by mouth once daily tolterodine LA (Detrol LA) 4 MG 24 hr capsule Take 4 mg by mouth Daily 12/21/2024 Active Tolterodine Tart rate ER Active vitamin b12 1 mg oral tablet (20 sources) Vitamin B12 Start: 04-26-2025 take 1 tablet by mouth once daily Cyanocobalamin (Vitamin B-12) 1,000 mcg tablet Active 1000 MCG PO Daily April 26, 2025 12:00am Complies with drug therapy Start: 08-04-2023 inject 1000 ug by in tramuscular injection every week, then inject 1000 ug [...] gamma-Aminobutyric Acid-ergic Agonist Start: 07-29-2024 End: 03-22-2025 Zolpidem 10 mg tablet Active MG PO March 25, 2025 12:00am Complies with drug therapy Start: 02-29-2024 End: 07-25-2024 zolpidem (Ambien) 10 [...] 90 tablet 0 08/28/2023 11/26/2023 Active Citalopram [place] bromide Active hyoscyamine sulfate 0.125 mg oral [...] 01/06/2025 Discontinued (Therapy completed) polyethylene glycol 3350 31533 mg powder for oral solution (9 sources) [...] given by office. Patient was given a [employer] coupon voucher to use, this is not to be ran through patients insurance. 24 tablet 02/13/2023 2025 Discontinued Start: 02-13-2023 sod sulf-pot c hloride-mag sulf 1.479-0.188- 0.225 gram tablet See instructional sheet given by office. Patient was given a [employer] coupon voucher to use, this is not to be ran through patients insurance. 24 tablet 02/13/2023 Active Problems Active Problems Problem Classification Problem Date Documented Da te Episodic/Chronic Abdominal pain (20 sources) Left upper quadrant pain; Translations: [Left upper quadrant pain] Onset: 4 Episodic Anxiety disorders (20 sources) Anxiety; Translations: [Generalized anxiety disorder] Onset: 5 05-24-2023 Chronic Cardiac dysrhythmias (2 sources) Palpitations; Translations: [Palpitations] Onset: 3 Episodic Deficiency and other anemia (20 sources) Iron deficiency anemia; Translations: [Iron deficiency anemia, unspecified] Onset: 3 Episodic Deficiency and other anemia (10 sources) Iron deficiency anemia secondary to inadequate dietary iron intake; Translations: [Other iron deficiency anemias] 07-31-2024 Episodic Esophageal disorders (20 sources) Gastroesophageal reflux disease; Translations: [Gastro-esophageal reflux disease without esophagitis] Onset: 3 05-24-2023 Chronic Genitourinary symptoms and ill-defined conditions (6 sources) Urge incontinence of urine; Translations: [Urge incontinence] Onset: 5 02-06-2025 Chronic Genitourinary symptoms and ill-defined conditions (1 source) Incomplete emptying of bladder; Translations: [Retention of urine, unspecified] 02-06-2025 Episodic Headache; including migraine (20 sources) Menstrual status migrainosus; Translations: [Menstrual migraine, not intractable, with status migrainosus] Onset: 5 08-12-2024 Chronic Malaise and fatigue (20 sources) Malaise and fatigue; Translations: [Other malaise] Onset: 5 08-12-2024 Episodic Menopausal disorders (20 sources) Menopausal flushing; Translations: [Menopausal and female climacteric states] Onset: 5 11-20-2024 Chronic Miscellaneous mental health disorders (20 sources) Psychophysiologic insomnia; Translations: [Psychophysiologic insomnia] Onset: 3 07-04-2023 Chronic Mood disorders (20 sources) Bipolar disorder; Translations: [Bipolar affective disorder, current episode depression] Onset: 3 Resolved: 5 05-24-2023 Chronic Mycoses (20 sources) Opportunistic mycosis; Translations: [Candidiasis, [...] 2 Chronic Other aftercare (1 source) 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; Translations: [OTH OFFICE AUTOMATION CLERK CURRENT DRUG THERAPY] Onset: 2 Episodic [...] STATUS] Onset: 2 Episodic Other gastrointestinal disorders (20 sources) History of bypass of stomach; Translations: [Bariatric surgery status] Onset: 4 08-04-2023 Episodic Other gastrointestinal disorders (1 source) Constipation, unspecified; Translations: [Constipation, unspecified] Onset: 4 Episodic Other gastrointestinal disorders (20 sources) Constipation; Translations: [Constipation, unspecified] Onset: 4 02-28-2024 Episodic Other gastrointestinal disorders (20 sources) History of gastrointestinal bleed; Translations: [Personal history of other diseases of the digestive system] Onset: 4 03-06-2024 Episodic Other lower respiratory disease (2 sources) Other forms of dyspnea; Translations: [Other forms of dyspnea] Onset: 3 Episodic Other lower respiratory disease (2 sources) Dyspnea; Translations: [Shortness of breath] 04-01-2025 Episodic Other nervous system disorders (4 sources) Carpal tunnel syndrome of right wrist; Translations: [Carpal tunnel syndrome, right upper limb] 03-25-2025 Chronic Other nervous system disorders (4 sources) Right-sided piriformis syndrome; Translations: [Lesion of sciatic nerve, right lower limb] 03-25-2025 Chronic Other nervous system disorders (1 source) Carpal tunnel syndrome, right upper limb; Translations: [Carpal tunnel syndrome, right upper limb] Onset: 5 Chronic Other non-traumatic joint disorders (1 source) Osteophyte, [...] unspecified, uncomplicated] Onset: 2 Resolved: 5 Chronic Unclassified (4 sources) CONTACT W/AND (SUSP) EXPOS COVID-19; Translations: [CONTACT W/AND (SUSP) EXPOS COVID-19] Onset: 1 Unclassified (2 sources) 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 Unclassified (20 sources) Patient on antidepressant monitoring plan Onset: 4 08-03-2023 Unclassified (1 source) New Patient Onset: 5 Past or Other Problems Problem Classification Problem Date Documented Da te Episodic/Chronic Adjustment disorders (20 sources) Stress and adjustment reaction; Translations: [Reaction to severe stress, unspecified] Onset: 03-18-2024 Resolved: 01-15-2025 Chronic Administrative/social admission (20 sources) Stress; Translations: [Finding relating to psychosocial functioning] Onset: 08-12-2024 Resolved: 01-15-2025 03-18-2024 Episodic Epilepsy; convulsions (20 sources) Neurological finding; Translations: [Unspecified convulsions] Onset: 01-22-2024 Resolved: 01-22-2025 01-22-2024 Episodic Immunizations and screening for infectious disease (1 source) Contact with and (suspected) exposure to other viral communicable diseases Onset: 08-30-2021 Resolved: 08-30-2021 Episodic Menstrual disorders (20 sources) Menorrhagia; Translations: [Excessive and frequent menstruation with regular cycle] Onset: 06-30-2023 Resolved: 11-20-2024 06-30-2023 Chronic Mood disorders (20 sources) Mood disorders Onset: 08-03-2023 Resolved: 01-22-2025 08-03-2023 Other circulatory disease (1 source) Other specified symptoms and signs involving the circulatory and respiratory systems; Translations: [OTH SPEC SX SIGNS INVLV CIRC RS] Onset: 02-26-2022 Episodic Other female genital disorders (20 sources) Female genital organ symptoms; Translations: [Unspecified condition associated with female genital organs and menstrual cycle] Onset: 08-12-2024 Resolved: 01-06-2025 08-12-2024 Episodic Other upper respiratory infections (20 sources) Acute upper respiratory infection, unspecified; Translations: [Acute upper respiratory infection] Onset: 08-30-2021 Resolved: 10-02-2024 Episodic Otitis media and related conditions (20 sources) Acute suppurative otitis media without spontaneous rupture of ear drum; Translations: [Acute suppurative otitis media without spontaneous rupture of ear drum, bilateral] Onset: 01-08-2024 Resolved: 10-02-2024 01-08-2024 Episodic Residual codes; unclassified (20 sources) Insomnia; Translations: [Insomnia, unspecified] Onset: 07-04-2023 01-22-2025 Episodic Skin and subcutaneous tissue infections (20 sources) Abscess of groin; Translations: [Cutaneous abscess of groin] Onset: 08-15-2023 Resolved: 11-20-2024 08-15-2023 Episodic Unclassified (1 source) CONTACT W/AND (SUSP) EXPOS COVID-19; Translations: [CONTACT W/AND (SUSP) EXPOS COVID-19] Onset: 06-07-2021 Unclassified (20 sources) Smoker; Translations: [Smoking] Onset: 08-12-2024 Resolved: 10-02-2024 10-02-2024 Urinary tract infections (20 sources) Urinary tract infectious disease; Translations: [Urinary tract infection, site not specified] Onset: 11-14-2024 Resolved: 11-20-2024 11-14-2024 Episodic Results Test Name Value Interpretation Reference Range Facility ALL CBC WITH AUTO DIFFon BASOPHILS ABSOLUTE AUTO 0.1 [facility] Basophils/100 WBC (Bld) 1.2 % 0.2 - 2.0 % [facility] Eosinophils/100 WBC (Bld) 7.9 % High 0.9 - 7.0 % [facility] Erythrocyte distribution width (RBC) [Ratio] 15.3 % High 11.0 - 15.0 % [facility] Hematocrit (Bld) [Volume fraction] 37.2 % 36.0 - 48.0 % [facility] Hemoglobin (Bld) [Mass/Vol] 11.8 g/dL Low 12.0 - 16.0 g/dL [facility] IMMATURE GRANULOCYTES ABS AUTO 0.02 [facility] Immature granulocytes/100 WBC (Bld) 0.3 % 0.0 - 0.5 % [facility] Interpretation and review of laboratory results Abnormal [facility] LYMPHOCYTES ABSOLUTE AUTO 2.3 [facility] Lymphocytes/100 WBC (Bld) 35.2 % 20.5 - 60.0 % [facility] MCH (RBC) [Entitic mass] 31.1 pg 26.7 - 34.0 pg [facility] MCHC (RBC) [Mass/Vol] 31.7 g/dL 29.9 - 35.2 g/dL [facility] MCV (RBC) [Entitic vol] 98.2 fL 81.0 - 99.0 fL [facility] MONOCYTES ABSOLUTE AUTO 0.4 [facility] Monocytes/100 WBC (Bld) 5.5 % 1.7 - 12.0 % [facility] NEUTROPHILS ABSOLUTE AUTO 3.3 [facility] Neutrophils/100 WBC (Bld) 49.9 % 43.0 - 75.0 % [facility] Platelet mean volume (Bld) [Entitic vol] 10 fL 9.5 - 13.5 fL [facility] EO # 0.5 [facility] PLT 255 [facility].6 [facility] SEGMENTAL BLOOD PRESSUREon 0 02-27-2025 [place] [address] Cardiology Report Signed Patient: TALIA RUTHERFORD MR#: [id number] : 1970 Acct:[id number] Age/Sex: 54 / F ADM Date: 02/26/25 Loc: CARD Attending Dr: Kajal LAZAR Ordering Physician: Kajal Escobedo Date of Service: 02/26/25 Procedure(s): CA segmental UE or LE PONCE Accession Number(s): [id number] cc: Pascale Arana NP; Kajal Escoebdo [facility] Test Date: 2025-02-26 Pat Name: TALIA RUTHERFORD Department: Room: - Gender: Female Groundwater Consultant: Cari Nichole : 1970 Requested By: Kajal Escobedo Order Number: [id number] Reading MD: SCOTT PARKINSON M.D. Interpretive Statements [...] 02/27/25 0907 02/27/25 0907 DD/ 1534 TD/TT: Tire Duster: [facility] Radiology, Radiolograndall mancia MD - 02/27/2025 [place] [address] Cardiology Report Signed Patient: TALIA RUTHERFORD MR#: [id number] : 1970 Acct:[id number] Age/Sex: 54 / F ADM Date: 02/26/25 Loc: CARD Attending Dr: Kajal LAZAR Ordering Physician: Kajal Escobedo Date of Service: 02/26/25 Procedure(s): CA segmental UE or LE PONCE Accession Number(s): [id number] cc: Pascale Arana NP; Kajal Escobedo [facility] Test Date: 2025-02-26 Pat Name: TALIA RUTHERFORD Department: Room: - Gender: Female Groundwater Consultant: Cari Nichole : 1970 Requested By: Kajal Escobedo Order Number: [id number] Reading MD: SCOTT PARKINSON M.D. Interpretive Statements [...] 02/27/25 0907 02/27/25 0907 DD/ 1534 TD/TT: Tire Duster: CHERYL Montero SEGMENTAL BLOOD PRESSUREOrde red By: Radiologist Radiology on 02-27-2025 [facility] [employer] Work Phone: SEGMENTAL BLOOD PRESSUREon 0 02-26-2025 Radiology Study observation (narrative) [facility] XR FOOT LT MIN 3Von 02-20-20 [place] [address] XRay Report Signed Patient: TALIA RUTHERFORD MR#: [id number] : 1970 Acct:[id number] Age/Sex: 54 / F ADM Date: 02/19/25 Loc: AKI Attending Dr: Kajal LAZAR Ordering Physician: Kajal Escobedo Date of Service: 02/19/25 Procedure(s): XR foot LT min 3V Accession Number(s): [id number] cc: Pascale Arana CONTRACTOR GENERAL BUILDING; Kajal Escobedo [place] [address] Patient Name: TALIA RUTHERFORD MRN: [id number] date: 1970 Sex: F Assigned Patient Location: [facility] Current Patient Location: [facility] Accession/Order Number: [id number] Exam Date: 02/19/2025 10:39 Report Date: 02/19/2025 [...] Jr. [email or web address] 02/19/2025 3:03 PM Dictation Location: [place] [address] Electronically authenticated by: [id number] Y Date: 02/19/2025 15:03 Dictated By: Merlin Massey M.D. Signed By: 02/19/25 1506 DD/ 1503 TD/TT: Tire Duster: [facility] Lisa Hong MD - 02/19/2025 [place] [address] XRay Report Signed Patient: TALIA RUTHERFORD MR#: [id number] : 1970 Acct:[id number] Age/Sex: 54 / F ADM Date: 02/19/25 Loc: RAD Attending Dr: Kajal LAZAR Ordering Physician: Kajal Escobeod Date of Service: 02/19/25 Procedure(s): XR foot LT min 3V Accession Number(s): [id number] cc: Pascale Arana [employer]ILD[employer]; Kajal Escobedo The [place] [phone] Patient Name: TALIA RUTHERFORD MRN: [facility]:[id number] date: 1970 Sex: F Assigned Patient Location: [facility] Current Patient Location: [facility] Accession/Order Number: [id number] Exam Date: 02/19/2025 10:39 Report Date: 02/19/2025 [...] SPURRING. Impression dictated by: Merlin Massey Jr., DConsueloOConsuelo 02/19/2025 3:03 PM Dictation Location: [place] [address] Electronically authenticated by: [id number] Y Date: 02/19/2025 15:03 Dictated By: Merlin Massey M.D. Signed By: 02/19/25 1506 DD/ 1503 TD/TT: Tire Duster: [facility] Radiology Study observation (narrative) [facility] XR FOOT LT MIN 3VOrdered By: Radiologist Radiology on 02-19-2025 [facility] [employer] Work Phone: MR Cervical spine WO contras ton 02-05-2025 [place] [address] Magnetic Resonance Report Signed Patient: TALIA RUTHERFORD MR#: [id number] : 1970 Acct:[id number] Age/Sex: 54 / F ADM Date: 02/04/25 Loc: MRI Attending Dr: Flores Eden M.D. Ordering Physician: Flores Eden M.D. Date of Service: 02/04/25 Procedure(s): MR cervical spine wo con Accession Number(s): [id number] cc: Pascale Arana [employer]; Flores Eden M.D. [place] [address] Patient Name: TALIA RUTHERFORD MRN: [facility]:[id number] date: 1970 Sex: F Assigned Patient Location: MRI Current Patient Location: Accession/Order Number: [id number] Exam Date: 02/05/2025 12:10 Report Date: 02/05/2025 [...] Uncovertebral spurring greatest right. Moderate right and cncd-fa-bcnlokvv left-sided neural foraminal narrowing. Mild canal narrowing. C5-6: Broad-based disc bulge with uncovertebral spurring, greatest left. Moderate right-sided moderate to severe left-sided neural foraminal narrowing. Mild central canal stenosis. C6-C7: Broad-based disc osteophyte complex with uncovertebral spurring. Brbl-fk-rqhcpcxj right moderate severe left neural foraminal narrowing. Quwo-am-ioltaqsm canal narrowing. C7-T1: Minimal vertebral hypertrophy. Moderate facet arthropathy. Canal and patent. Mild foraminal narrowing. MR/MR cervical spine wo con IMPRESSION: Overall multilevel degenerative changes with up to owmh-tj-ofaxyagm central canal narrowing. Multilevel foraminal encroachment as noted above. Impression dictated by: Mushtaq Antony M.D. 02/05/2025 12:16 PM Dictation Location: [place] [address] Electronically authenticated by: [id number] Y Date: 02/05/2025 12:16 Dictated By: Mushtaq Antony M.D. Signed By: 02/05/25 1218 DD/ 1216 TD/TT: Tire Duster: [facility] Radiology, Radiologi MD blanche - 02/05/2025 [place] [address] Magnetic Resonance Report Signed Patient: TALIA RUTHERFORD MR#: [id number] : 1970 Acct:[id number] Age/Sex: 54 / F ADM Date: 02/04/25 Loc: MRI Attending Dr: Flores Eden M.D. Ordering Physician: Flores Eden M.D. Date of Service: 02/04/25 Procedure(s): MR cervical spine wo con Accession Number(s): [id number] cc: Pascale Arana [employer]; Flores Eden M.D. The [place] [address] Patient Name: TALIA RUTHERFORD MRN: [facility]:[id number] date: 1970 Sex: F Assigned Patient Location: MRI Current Patient Location: Accession/Order Number: [id number] Exam Date: 02/05/2025 12:10 Report Date: 02/05/2025 [...] Uncovertebral spurring greatest right. Moderate right and xbad-nd-fndemktt left-sided neural foraminal narrowing. Mild canal narrowing. C5-6: Broad-based disc bulge with uncovertebral spurring, greatest left. Moderate right-sided moderate to severe left-sided neural foraminal narrowing. Mild central canal stenosis. C6-C7: Broad-based disc osteophyte complex with uncovertebral spurring. Ircs-fx-emvdrgqc right moderate severe left neural foraminal narrowing. Mbpn-hz-wwyitllg canal narrowing. C7-T1: Minimal vertebral hypertrophy. Moderate facet arthropathy. Canal and patent. Mild foraminal narrowing. MR/MR cervical spine wo con IMPRESSION: Overall multilevel degenerative changes with up to qefq-ei-nhztiupe central canal narrowing. Multilevel foraminal encroachment as noted above. Impression dictated by: Mushtaq Antony M.D. 02/05/2025 12:16 PM Dictation Location: [place] [address] Electronically authenticated by: [id number] Y Date: 02/05/2025 12:16 Dictated By: Mushtaq Antony M.D. Signed By: 02/05/25 1218 DD/ TD/TT: Tire Duster: [facility] Radiology Study observation (narrative) [facility] MR Cervical spine WO contras tOrdered By: Radiologist Radiology on 02-05-2025 [facility] [employer] Work Phone: [place] [address] Magnetic Resonance Report Signed Patient: TALIA RUTHERFORD MR#: [id number] : 1970 Acct:[id number] Age/Sex: 54 / F ADM Date: 02/04/25 Loc: MRI Attending Dr: Flores Eden M.D. Ordering Physician: Flores Eden M.D. Date of Service: 02/04/25 Procedure(s): MR lumbar spine wo con Accession Number(s): [id number] cc: Pascale Arana [employer]; Flores Eden M.D. [place] [address] Patient Name: TALIA RUTHERFORD MRN: [id number]:[id number] date: 1970 Sex: F Assigned Patient Location: MRI Current Patient Location: Accession/Order Number: [id number] Exam Date: 02/05/2025 12:16 Report Date: 02/05/2025 [...] Circumferential disc bulge with moderate facet arthropathy. Bnss-st-ggevdjxm right-sided and mild left-sided neural foraminal narrowing . 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 Impression dictated by: Mushtaq Antony M.D. 02/05/2025 2:18 PM Dictation Location: [place] [address] Electronically authenticated by: [id number] Y Date: 02/05/2025 14:18 Dictated By: Mushtaq Antony M.D. Signed By: 02/05/25 1421 DD/ 1418 TD/TT: Tire Duster: [facility] Radiology, Radiolograndall mancia MD - 02/05/2025 [place] [address] Magnetic Resonance Report Signed Patient: TALIA RUTHERFORD MR#: [id number] : 1970 Acct:[id number] Age/Sex: 54 / F ADM Date: 02/04/25 Loc: MRI Attending Dr: Flores Eden M.D. Ordering Physician: Flores Eden M.D. Date of Service: 02/04/25 Procedure(s): MR lumbar spine wo con Accession Number(s): [id number] cc: Pascale Arana NP; Flores Eden M.D. The [address] [address] Patient Name: TALIA RUTHERFORD MRN: [facility]:[id number] date: 1970 Sex: F Assigned Patient Location: MRI Current Patient Location: Accession/Order Number: [id number] Exam Date: 02/05/2025 12:16 Report Date: 02/05/2025 [...] Circumferential disc bulge with moderate facet arthropathy. Pbnc-gt-ojlccuym right-sided and mild left-sided neural foraminal narrowing . 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 Impression dictated by: Mushtaq Antony M.D. 02/05/2025 2:18 PM Dictation Location: [place] [address] Electronically authenticated by: [id number] Y Date: 02/05/2025 14:18 Dictated By: Mushtaq Antony M.D. Signed By: 02/05/25 1421 DD/ 1418 TD/TT: Tire Duster: [facility] Radiology Study observation (narrative) [facility] MR LUMBAR SPINE WO CONOrdere d By: Radiologist Radiology on 02-05-2025 [facility] Work Phone: ALL CBC WITH AUTO DIFFon BASOPHILS ABSOLUTE AUTO 0.1 [facility] Basophils/100 WBC (Bld) 1 % 0.2 - 2.0 % [facility] Eosinophils/100 WBC (Bld) 6.9 % 0.9 - 7.0 % [facility] Erythrocyte distribution width (RBC) [Ratio] 15.6 % High 11.0 - 15.0 % [facility] Hematocrit (Bld) [Volume fraction] 36.2 % 36.0 - 48.0 % [facility] Hemoglobin (Bld) [Mass/Vol] 11.8 g/dL Low 12.0 - 16.0 g/dL [facility] IMMATURE GRANULOCYTES ABS AUTO 0.01 [facility] Immature granulocytes/100 WBC (Bld) 0.2 % 0.0 - 0.5 % [facility] Interpretation and review of laboratory results Abnormal [facility] LYMPHOCYTES ABSOLUTE AUTO 1.9 [facility] Lymphocytes/100 WBC (Bld) 32 % 20.5 - 60.0 % [facility] MCH (RBC) [Entitic mass] 28.6 pg 26.7 - 34.0 pg [facility] MCHC (RBC) [Mass/Vol] 32.6 g/dL 29.9 - 35.2 g/dL [facility] MCV (RBC) [Entitic vol] 87.9 fL 81.0 - 99.0 fL [facility] MONOCYTES ABSOLUTE AUTO 0.3 [facility] Monocytes/100 WBC (Bld) 5.4 % 1.7 - 12.0 % [facility] NEUTROPHILS ABSOLUTE AUTO 3.3 [facility] Neutrophils/100 WBC (Bld) 54.5 % 43.0 - 75.0 % [facility] Platelet mean volume (Bld) [Entitic vol] 9.6 fL 9.5 - 13.5 fL [facility] TB EO # 0.4 [facility] TB PLT [address] RBC 4.12 Low [facility] TB WBC 6.1 [facility] CLINISYNC [facility] IGP,APTIMA HPV,AGE GDLNon AGE GDLN ACOG TESTING Note . [facility] Comment on above: TESTS RESULT FLAG UN ITS REF RANGE LAB Clinician Provided Cytology Information Source.............Cervix;Endocervix No. of containers..01 ThinPrep Vial Age Radha JEAN Fiorella... 3065 FLAG LEGEND: L-Low Normal,H-High Normal,LL-Alert Low,HH-Alert High <-Panic Low,>-Panic High,A-Abnormal,AA-Critical Abnormal Performed at: 01 =G [address] [address] Monika Norton MD, HPV APTIMA Positive Abnormal Negative [facility] Comment on above: This nucleic acid am plification test detects fourteen high- risk HPV types (16,18,31,33,35,39,45,51,52,56,58,59,66,68) without differentiation. HPV GENOTYPE 16 Negative Negative [facility] HPV GENOTYPE 18,45 Negative Negative [facility] Healthcare Comment on above: Performed at: =G - L [address] [id number] [employer]: Monika Norton MD, Phone: [phone] Performed at: [address] [id number] [employer]: Monika Norton MD, Phone: [phone] IGP, APTIMA HPV, RFX 16/18,45 Note . [facility] Healthcare Comment on above: TESTS RESULT FLAG UN ITS REF RANGE LAB DIAGNOSIS: 02 NEGATIVE FOR INTRAEPITHELIAL LESION OR MALIGNANCY. Specimen adequacy: 02 Satisfactory for evaluation. Endocervical and/or squamous metaplastic cells (endocervical component) are present. Performed by: 02 Car[employer] Superintendent . 02 Note: Note 02 The Pap [...] <-Panic Low,>-Panic High,A-Abnormal,AA-Critical Abnormal Performed at: [address] [address] Monika Norton MD, Interpretation and review of laboratory results Abnormal [facility] BRUSH-ALONE CERVIX ENDOCERVIX CLINISYNC [facility] MM TOMOSYNTHESIS SCREENING B Ion 10-23-[address] [address] Mammography Report Signed Patient: TALIA RUTHERFORD MR#: [id number] : 1970 Acct:[id number] Age/Sex: 54 / F ADM Date: 10/23/24 Loc: MAMMO Attending Dr: Pascale Arana NP Ordering Physician: Pascale Arana NP Results: Date of Service: 10/23/24 Follow Up: Procedure(s): MM tomosynthesis screening BI Accession Number(s): [id number] cc: Pascale Arana NP Patient Name: TALIA RUTHERFORD MR#: [id number] : 1970 Exam Date: 10/23/2024 Ordering Doctor: [...] at age 51. LOCATION: The [facility] BREAST COMPOSITION: There are scattered areas [...] Signed By: 10/23/24 1555 DD/ 1555 TD/TT: Tire Duster: [facility] Radiology Radiolograndall mancia MD - 10/23/2024 [place] [address] Mammography Report Signed Patient: TALIA RUTHERFORD MR#: [id number] : 1970 Acct:[id number] Age/Sex: 54 / F ADM Date: 10/23/24 Loc: MAMMO Attending Dr: Pascale Arana NP Ordering Physician: Pascale Arana NP Results: Date of Service: 10/23/24 Follow Up: Procedure(s): MM tomosynthesis screening BI Accession Number(s): [id number] cc: Pascale Arana NP Patient Name: TALIA RUTHERFORD MR#: [id number] : 1970 Exam Date: 10/23/2024 Ordering Doctor: [...] at age 51. LOCATION: The [facility] BREAST COMPOSITION: There are scattered areas [...] Signed By: 10/23/24 1555 DD/ 54 TD/TT: Tire Duster: [facility] Radiology Study observation (narrative) [facility] MM TOMOSYNTHESIS SCREENING B IOrdered By: Radiologist Radiology on 10-23-2024 [facility] Work Phone: ALL CBC WITH AUTO DIFFon BASOPHILS ABSOLUTE AUTO 0 [facility] Basophils/100 WBC (Bld) 0.8 % 0.2 - 2.0 % [facility] Eosinophils/100 WBC (Bld) 3.9 % 0.9 - 7.0 % [facility] Erythrocyte distribution width (RBC) [Ratio] 14.2 % 11.0 - 15.0 % [facility] Hematocrit (Bld) [Volume fraction] 32.9 % Low 36.0 - 48.0 % [facility] Hemoglobin (Bld) [Mass/Vol] 10.6 g/dL Low 12.0 - 16.0 g/dL [facility] IMMATURE GRANULOCYTES ABS AUTO 0 [facility] Immature granulocytes/100 WBC (Bld) 0 % 0.0 - 0.5 % [facility] Interpretation and review of laboratory results Abnormal [facility] LYMPHOCYTES ABSOLUTE AUTO 1.6 [facility] Lymphocytes/100 WBC (Bld) 31.7 % 20.5 - 60.0 % [facility] MCH (RBC) [Entitic mass] 29.5 pg 26.7 - 34.0 pg [facility] MCHC (RBC) [Mass/Vol] 32.2 g/dL 29.9 - 35.2 g/dL [facility] MCV (RBC) [Entitic vol] 91.6 fL 81.0 - 99.0 fL [facility] MONOCYTES ABSOLUTE AUTO 0.4 [facility] Monocytes/100 WBC (Bld) 7.2 % 1.7 - 12.0 % [facility] NEUTROPHILS ABSOLUTE AUTO 2.8 [facility] Neutrophils/100 WBC (Bld) 56.4 % 43.0 - 75.0 % [facility] Platelet mean volume (Bld) [Entitic vol] 10.5 fL 9.5 - 13.5 fL [facility]H EO # 0.2 [facility]H PLT 199 [facility] RBC 3.59 Low [facility] WBC 4.9 [facility] CLINISYNC [facility] CT FOOT LT WO CONon 09-09-[address] [place] [address] CT Scan Report Signed Patient: TALIA RUTHERFORD MR#: [id number] : 1970 Acct:[id number] Age/Sex: 54 / F ADM Date: 09/09/24 Loc: CT Attending Dr: Tawana Foster D.P.M. Ordering Physician: Tawana Foster D.P.M. Date of Service: 09/09/24 Procedure(s): CT foot LT wo con Accession Number(s): [id number] cc: ANGEL LUIS GROVES [address] [address] Patient Name: TALIA RUTHERFORD MRN: [facility]:[id number] date: 1970 Sex: F Assigned Patient Location: CT Current Patient Location: CT Accession/Order Number: [id number] Exam Date: 09/09/2024 15:56 Report Date: 09/09/2024 [...] Signed By: 09/09/24 1742 DD/ 1739 TD/TT: Tire Duster: Lisa Marmolejo MD - 09/09/[address] [address] [address] Scan Report Signed Patient: TALIA RUTHERFORD MR#: [id number] : 1970 Acct:[id number] Age/Sex: 54 / F ADM Date: 09/09/24 Loc: CT Attending Dr: Tawana Foster D.P.M. Ordering Physician: Tawana Foster D.P.M. Date of Service: 09/09/24 Procedure(s): CT foot LT wo con Accession Number(s): [id number] cc: ANGEL LUIS GROVES The [address] [address] Patient Name: TALIA RUTHERFORD MRN: [facility]:[id number] date: 1970 Sex: F Assigned Patient Location: CT Current Patient Location: CT Accession/Order Number: [id number] Exam Date: 09/09/2024 15:56 Report Date: 09/09/2024 [...] Signed By: 09/09/24 1742 DD/ 1739 TD/TT: Tire Duster: [facility] Radiology Study observation (narrative) [facility] CT FOOT LT WO CONOrdered By: Radiologist Radiology on 09-09-2024 [facility] Work Phone: XR FOOT LT MIN 3Von 09-05-19 [place] [address] XRay Report Signed Patient: TALIA RUTHERFORD MR#: [id number] : 1970 Acct:[id number] Age/Sex: 54 / F ADM Date: 09/04/24 Loc: EC Attending Dr: Tawana Foster D.P.M. Ordering Physician: Tawana Foster D.P.M. Date of Service: 09/04/24 Procedure(s): XR foot LT min 3V Accession Number(s): [id number] cc: NASH GROVES Peter D.P.M. The [place] [address] Patient Name: TALIA RUTHERFORD MRN: [facility]:[id number] date: 1970 Sex: F Assigned Patient Location: Current Patient Location: Accession/Order Number: [id number] Exam Date: 09/04/2024 15:53 Report Date: 09/05/2024 [...] Signed By: 09/05/24 1019 DD/ 1016 TD/TT: Tire Duster: [facility] Radiology, Radiologi MD blanche - 09/05/2024 [place] [address] XRay Report Signed Patient: TALIA RUTHERFORD MR#: [id number] : 1970 Acct:[id number] Age/Sex: 54 / F ADM Date: 09/04/24 Loc: EC Attending Dr: Tawana Foster D.P.M. Ordering Physician: Tawana Foster D.P.M. Date of Service: 09/04/24 Procedure(s): XR foot LT min 3V Accession Number(s): [id number] cc: ANGEL LUIS GROVES; Tawana Foster D.P.M. The [place] [address] Patient Name: TALIA RUTHERFORD MRN: [facility]:[id number] date: 1970 Sex: F Assigned Patient Location: Current Patient Location: Accession/Order Number: [id number] Exam Date: 09/04/2024 15:53 Report Date: 09/05/2024 [...] Signed By: 09/05/24 1019 DD/ 1016 TD/TT: Tire Duster: [facility] Radiology Study observation (narrative) [facility] XR FOOT LT MIN 3VOrdered By: Radiologist Radiology on 09-05-2024 [facility] Work Phone: CHRONIC WOUND/ULCER (HTRX)on 08-14-2024 ACINETOBACTER BAUMANNII (CHRONIC WOUND/ULCER) 0 [facility] Healthcare ACINETOBACTER BAUMANNII (CHRONIC WOUND/ULCER) Not detected [facility] BACTEROIDES FRAGILIS, VULGATUS (CHRONIC WOUND/ULCER) 0 [facility] BACTEROIDES FRAGILIS, VULGATUS (CHRONIC WOUND/ULCER) Not detected [facility] CITROBACTER FREUNDII (CHRONIC WOUND/ULCER) 0 [facility] CITROBACTER FREUNDII (CHRONIC WOUND/ULCER) Not detected [facility] CLOSTRIDIUM PERFRINGENS, NOVYI, SEPTICUM (CHRONIC WOUND/ULCER) 0 [facility] CLOSTRIDIUM PERFRINGENS, NOVYI, SEPTICUM (CHRONIC WOUND/ULCER) Not detected [facility] CORYNEBACTERIUM JEIKEIUM, STRIATUM, TUBERCULOSTEARICUM (CHRONIC WOUND/ULCER [...] EPIDERMIDIS, HAEMOLYTICUS, LUGDUNENSIS, SAPROPHYTICUS (CHRON Detected Abnormal [facility] STREPTOCOCCUS PYOGENES (GROUP A STREP) (CHRONIC WOUND/ULCER) 0 [facility] STREPTOCOCCUS PYOGENES (GROUP A STREP) (CHRONIC WOUND/ULCER) Not detected [facility] VARICELLA ZOSTER VIRUS (HUMAN HERPESVIRUS 3) (CHRONIC WOUND/ULCER) 0 [facility] VARICELLA ZOSTER VIRUS (HUMAN HERPESVIRUS 3) (CHRONIC WOUND/ULCER) Not detected [facility] VIBRIO CHOLERAE, PARAHAEMOLYTICUS, VULNIFICUS (CHRONIC WOUND/ULCER) 0 [facility] VIBRIO CHOLERAE, PARAHAEMOLYTICUS, VULNIFICUS (CHRONIC WOUND/ULCER) Not detected [facility] ALL CBC WITH AUTO DIFFon BASOPHILS ABSOLUTE AUTO 0 [facility] Basophils/100 WBC (Bld) 0.6 % 0.2 - 2.0 % [facility] Eosinophils/100 WBC (Bld) 0 % Low 0.9 - 7.0 % [facility] Erythrocyte distribution width (RBC) [Ratio] 13.6 % 11.0 - 15.0 % [facility] Hematocrit (Bld) [Volume fraction] 37.4 % 36.0 - 48.0 % [facility] Hemoglobin (Bld) [Mass/Vol] 12.1 g/dL 12.0 - 16.0 g/dL [facility] IMMATURE GRANULOCYTES ABS AUTO 0.01 [facility] Immature granulocytes/100 WBC (Bld) 0.2 % 0.0 - 0.5 % [facility] Interpretation and review of laboratory results Abnormal [facility] LYMPHOCYTES ABSOLUTE AUTO 1.1 Low [facility] Lymphocytes/100 WBC (Bld) 19.9 % Low 20.5 - 60.0 % [facility] MCH (RBC) [Entitic mass] 29.4 pg 26.7 - 34.0 pg [facility] MCHC (RBC) [Mass/Vol] 32.4 g/dL 29.9 - 35.2 g/dL [facility] MCV (RBC) [Entitic vol] 91 fL 81.0 - 99.0 fL [facility] MONOCYTES ABSOLUTE AUTO 0.2 Low [facility] Monocytes/100 WBC (Bld) 4.2 % 1.7 - 12.0 % [facility] NEUTROPHILS ABSOLUTE AUTO 4.1 [facility] Neutrophils/100 WBC (Bld) 75.1 % High 43.0 - 75.0 % [facility] Platelet mean volume (Bld) [Entitic vol] 9.7 fL 9.5 - 13.5 fL [facility] EO # 0 [facility] TB PLT 256 [facility] TB RBC 4.11 Low [facility] TB WBC 5.4 [facility] CLIN[facility]YNC [facility] Ambulatory Visit Summaryon 0 03-18-2024 Ambulatory Visit [...] choosing us for your care. Normal [facility] Gastroenterology Office/Clin ic Noteon 03-18-2024 Gastroenterology [...] vaccine, inactivated - Not Given Patient [facility]uses [facility] Comment on above: Result Comment: Elec tronically Signed By: Jelani WELLER, Ron Valdovinos.br\Date and Time Signed: 03/18/24 15:21 EDT Outside Colonoscopyon 2023 Outside Colonoscopy [id number]#1.00TIFF [facility] Reminderson 07-20-2023 Reminders - From: Machelle Arauz LPN To: N - Clinical; Sent: 07/20/2023 10:55:11 EST Show up: 06/19/2033 07:00:00 EST Subject: colonoscopy recall Due Date/Time: 07/19/2033 07:00:00 EST Reminder/Recall Patient due for screening colonoscopy 07/19/2033. [facility] Lab Reportson 06-26-2023 Lab Reports [id number]#1.00TIFF [facility] Insurance Correspondenceon 08-09-2022 Insurance Correspondence [id number]#1.00TIFF [facility] Facesheeton 06-08-2023 Facesheet [id number]#1.00TIFF [facility] Physician Referralon 023 Physician Referral [id number]#1.00TIFF [facility] Ambulatory Visit Summaryon 1 08-07-2022 Ambulatory Visit [...] us for your care. Normal [facility] Lab Reportson 05-31-2023 Lab Reports [id number]#1.00TIFF [facility] Consultation Noteon 05-25-20 23 Consultation Note [id number]#1.00TIFF [facility] Physician Referralon 023 Physician Referral [id number]#1.00TIFF [facility] Office Visiton 04-07-2023 Follow-up visit [id number] Norma Rutherford D 1970 Date Provider Department Center 04/07/2023 [id number] SHAH Family History Problem Relation Age of Onset Brain Aneurysm Mother 80 Diabetes Mother Heart failure Father 80 Diabetes Father Hypertension Father Diabetes Sister Family Status - Relation Status Age at Mother Father Sister Level of Service:25153 [place] OFFICE/OUTPATIENT ESTABLISHED MOD MDM 30-39 MIN Normal [facility] 36on 02-08-2023 36 TB lab called to re port critical HGB and hematocrit for patient: HGB was 5.1 and hematocrit is 18.9. I spoke with Talia and advised she go to the ED. She verbalized understanding and will do so. Normal [facility] Office Visiton 02-08-2023 Follow-up visit [id number] Norma Rutherford 1970 Provider Department Center 02/08/2023 30867-KEPRLVBGUCAROL SHAH Family History Problem Relation Age of Onset Brain Aneurysm Mother 80 Diabetes Mother Heart failure Father 80 Diabetes Father Hypertension Father Diabetes Sister Family Status - Relation Status Age at Mother Father Sister Level of Service:[address]83 [place] OFFICE/OUTPATIENT NEW MODERATE MDM 45-59 MINUTES Reason for Visit and Comments: Establish Care [42] - Swelling in both legs,right leg is itching and painful Shortness of Breath [804379] Dizziness [159170] Fatigue [46] Normal [facility] PREG HCG QUALon 03-10-2022 , QUAL Negative Normal NEGATIVE The [facility] Comment on above: Performed By: #### P REG ####[facility] [id number] [id number]. Moni Johnson Covid-19 PCR (CVDTB)on 02-21 SARS-CoV-2 (COVID-19) RNA EMMANUEL+probe Ql (Unsp spec) Not detected Normal NOT DETECTED The [facility] Comment on above: Result Comment: This test is not yet approved or cleared by the [place] FDA. When there are no FDA-approved or cleared tests available, and other criteria are met, FDA can make tests available under an emergency access mechanism called an Emergency Use Authorization (EUA). The EUA for this test is supported by the [place] of Health and Human Service's (HHS's) declaration [...] SARS-CoV-2. Performed By: #### C VDTBH #### [facility] [id number] Moni Johnson PROF CHEM 8 (BAS METB)on Anion gap [Moles/Vol] 9.0 mmol/L Normal The [facility] Comment on above: Performed By: #### B MP ####[facility] [address] [id number]. Moni Johnson Calcium [Mass/Vol] 8.3 mg/dL Critically low 8.5-10.[address] [facility] Comment on above: Performed By: #### B MP ####[facility] [address] [id number]. Moni Johnson Chloride [Moles/Vol] 106 mmol/L Normal 98-[address] [facility] Comment on above: Performed By: #### B MP ####[facility] [address] [address]Dr. Moni Alex CO2 [Moles/Vol] 29.2 mmol/L Normal 21.0-32.0 The [facility] Comment on above: Performed By: #### B MP ####[facility] [address] [address]Dr. Angelinemaria a Alex Creatinine [Mass/Vol] 0.78 mg/dL Normal 0.55-1.[address] [facility] Comment on above: Performed By: #### B MP ####[facility] [address] [place], [place] [address]Dr. Angelinemaria a Alex EGFR-AF BOLIVIAN >60 Normal >=60 The [facility] Comment on above: Performed By: #### B MP ####[facility] [address] [place], [place] [address]Dr. Moni Johnson EGFR-NON AF BOLIVIAN >60 Normal >=[address] [facility] Comment on above: Performed By: #### B MP ####[facility] [address] [place], [place] [address]Dr. Moni Johnson Glucose [Mass/Vol] 88 mg/dL Normal 74-106 The [facility] Comment on above: Performed By: #### B MP ####[facility] [address] [place], [place] [address]Dr. Moni Johnson Potassium [Moles/Vol] 4.2 mmol/L Normal 3.5-5.[address] [facility] Comment on above: Performed By: #### B MP ####[facility] [address] [address]Dr. Moni Johnson Sodium [Moles/Vol] 140 mmol/L Normal 136-145 The [facility] Comment on above: Performed By: #### B MP ####[facility] [address] [place], [place] [address]Dr. Moni Johnson Urea nitrogen [Mass/Vol] 21.0 mg/dL Critically high 7.0-18.[address] [facility] Comment on above: Performed By: #### B MP ####[facility] [address] [place], [place] [address]Bn. Moni Johnson Urea nitrogen/Creatinine [Mass ratio] 26.9 mg/mg Normal The [facility] Comment on above: Performed By: #### B MP ####[facility] [address] [place], [place] [address]Gy. Moni [address] FOOT LT WO CONon [...] Date: 2022-02-22 18:32 Normal [address] [facility] COVID Quick Testingon 2021 Result Negative mig33 Other Quick Fluon 08-30-2021 FLUAV Ab CF (S) [Titer] Negative mig33 Other FLUBV Ab CF (S) [Titer] Negative mig33 Other Covid-19 PCR ([facility])on 05-24 SARS-CoV-2 (COVID-19) RNA EMMANUEL+probe Ql (Unsp spec) Not detected Normal NOT DETECTED The [facility] Comment on above: Result Comment: This test is not yet approved or cleared by the [place] FDA. When there are no FDA-approved or cleared tests available, and other criteria are met, FDA can make tests available under an emergency access mechanism called an Emergency Use Authorization (EUA). The EUA for this test is supported by the [place] of Health and Human Service's (HHS's) declaration [...] consistent with SARS-CoV-2. Performed By: #### [facility] #### [facility] [address] [place] [address] Dr. Moni Johnson Vital Signs Date Time Vital Sign Value Performing Clinician Facility 04-30-2025 16:44-0400 Body height 165.1 cm Pascaleeric Herreraz [employer] Work Phone: [facility] 04-30-2025 16:44-0400 Body mass index (BMI) [Ratio] 29.3 kg/m2 Pascaleeric Lastholz [employer] Work Phone: [facility] 04-30-2025 16:44-0400 Body temperature 97 [degF] Pascaleeric Lastholz [employer] Work Phone: [facility] 04-30-2025 16:44-0400 Body weight 80.08 kg Pascaleeric Lastholz [employer] Work Phone: [facility] 04-30-2025 16:44-0400 Diastolic blood pressure 60 mm[Hg] Pascale Shalaholz [employer] Work Phone: [facility] 04-30-2025 16:44-0400 Heart rate 65 /min Pascale Javierz [employer] Work Phone: [facility] 04-30-2025 16:44-0400 Respiratory rate 16 /min Pascaleeric Mezakendall [employer] Work Phone: [facility] 04-30-2025 16:44-0400 SaO2% (BldA) [Mass fraction] 99 % Pascaleeric Mezakendall [employer] Work Phone: [facility] 04-30-2025 16:44-0400 Systolic blood pressure 96 mm[Hg] Pascaleeric Mezakendall [employer] Work Phone: [facility] 04-02-2025 14:57-0400 Body height 166.4 cm Jovon Asif MD Work Phone: [facility] 04-02-2025 14:57-0400 Body mass index (BMI) [Ratio] 28.94 kg/m2 Jovon Asif MD Work Phone: [facility] 04-02-2025 14:57-0400 Body weight 80.11 kg Jovon Asif MD Work Phone: [facility] 04-02-2025 14:57-0400 Diastolic blood pressure 64 mm[Hg] Jovon Asif MD Work Phone: [facility] 04-02-2025 14:57-0400 Heart rate 83 /min Jovon Asif MD Work Phone: [facility] 04-02-2025 14:57-0400 Systolic blood pressure 98 mm[Hg] Jovon Asif MD Work Phone: [facility] 03-25-2025 08:37-0400 Body height 165.1 cm Pascale Arana Work Phone: [facility] 03-25-2025 08:37-0400 Body mass index (BMI) [Ratio] 29.2 kg/m2 Pascale Arana Work Phone: [facility] 03-25-2025 08:37-0400 Body weight 79.6 kg Pascale Herreraz Work Phone: [facility] 02-25-2025 11:31-0400 Body mass index (BMI) [Ratio] 28.76 kg/m2 Pascaleeric Mezahholz [employer] Work Phone: [facility] 02-25-2025 11:31-0400 Body temperature 97.81 [degF] Pascaleeric Lastholz [employer] Work Phone: [facility] 02-25-2025 11:31-0400 Body weight 78.38 kg Pascaleeric Mezahholz [employer] Work Phone: [facility] 02-25-2025 11:31-0400 Diastolic blood pressure 64 mm[Hg] Pascale Shalaholz [employer] Work Phone: [facility] 02-25-2025 11:31-0400 Heart rate 99 /min Pascaleeric Lastholz [employer] Work Phone: [facility] 02-25-2025 11:31-0400 SaO2% (BldA) [Mass fraction] 97 % Pascale Derrickhholz [employer] Work Phone: [facility] 02-25-2025 11:31-0400 Systolic blood pressure 102 mm[Hg] Pascaleeric Lastholz [employer] Work Phone: [facility] 02-24-2025 15:01-0400 Body mass index (BMI) [Ratio] 28.79 kg/m2 Eunice Wallston PMHNP-BC Work Phone: [facility] 02-24-2025 15:01-0400 Body weight 78.47 kg Eunice Wallston PMHNP-BC Work Phone: [facility] 02-24-2025 15:01-0400 Diastolic blood pressure 62 mm[Hg] Eunice Dias PMHNP-BC Work Phone: [facility] 02-24-2025 15:01-0400 Heart rate 88 /min Eunice Dias PMHNP-BC Work Phone: [facility] 02-24-2025 15:01-0400 Systolic blood pressure 102 mm[Hg] Eunice Dias PMHNP-BC Work Phone: [facility] 02-06-2025 14:23-0400 Body height 166.4 cm Shelia Muniz DO Work Phone: [facility] 02-06-2025 14:23-0400 Body mass index (BMI) [Ratio] 28.51 kg/m2 Shelia Muniz DO Work Phone: [facility] 02-06-2025 14:23-0400 Body weight 78.93 kg Shelia Muniz DO Work Phone: [facility] 02-06-2025 14:23-0400 Diastolic blood pressure 80 mm[Hg] Shelia Muniz DO Work Phone: [facility] 02-06-2025 14:23-0400 Systolic blood pressure 108 mm[Hg] Shelia Muniz DO Work Phone: [facility] 01-22-2025 09:04-0400 Body mass index (BMI) [Ratio] 29.62 kg/m2 Eunice Dias PMHNP-BC Work Phone: [facility] 01-22-2025 09:04-0400 Body weight 80.74 kg Eunice Dias PMHNP-BC Work Phone: [facility] 01-22-2025 09:04-0400 Diastolic blood pressure 68 mm[Hg] Eunice Dias PMHNP-BC Work Phone: [facility] 01-22-2025 09:04-0400 Heart rate 78 /min Eunice Dias PMHNP-BC Work Phone: [facility] 01-22-2025 09:04-0400 Systolic blood pressure 112 mm[Hg] Eunice Dias PMHNP-BC Work Phone: [facility] 01-06-2025 16:32-0400 Body mass index (BMI) [Ratio] 29.99 kg/m2 Pascale Herreraz [employer] Work Phone: [facility] 01-06-2025 16:32-0400 Body temperature 98.01 [degF] Pascale Shalaholz [employer] Work Phone: [facility] 01-06-2025 16:32-0400 Body weight 81.74 kg Pascaleeric Lastholz [employer] Work Phone: [facility] 01-06-2025 16:32-0400 Diastolic blood pressure 60 mm[Hg] Pascale Shalaholz [employer] Work Phone: [facility] 01-06-2025 16:32-0400 Heart rate 82 /min Pascale Javierz [employer] Work Phone: [facility] 01-06-2025 16:32-0400 Respiratory rate 18 /min Pascale Shalaholz [employer] Work Phone: [facility] 01-06-2025 16:32-0400 SaO2% (BldA) [Mass fraction] 98 % Pascale Shalaholz [employer] Work Phone: [facility] 01-06-2025 16:32-0400 Systolic blood pressure 110 mm[Hg] Pascale Shalaholz [employer] Work Phone: [facility] 11-20-2024 15:30-0400 Body mass index (BMI) [Ratio] 32.48 kg/m2 Pascale Shalaholz [employer] Work Phone: [facility] 11-20-2024 15:30-0400 Body temperature 98.2 [degF] Pascale Shalaholz [employer] Work Phone: [facility] 11-20-2024 15:30-0400 Body weight 88.54 kg Pascale Shalaholz [employer] Work Phone: [facility] 11-20-2024 15:30-0400 Diastolic blood pressure 60 mm[Hg] Pascale Derrickpiperholz [employer] Work Phone: [facility] 11-20-2024 15:30-0400 Heart rate 80 /min Pascale Aichholz [employer] Work Phone: [facility] 11-20-2024 15:30-0400 Respiratory rate 18 /min Pascale Aichholz [employer] Work Phone: [facility] 11-20-2024 15:30-0400 SaO2% (BldA) [Mass fraction] 95 % Pascale Aichholz [employer] Work Phone: [facility] 11-20-2024 15:30-0400 Systolic blood pressure 104 mm[Hg] Pascale Aichholz [employer] Work Phone: [facility] 10-23-2024 17:34-0400 Body mass index (BMI) [Ratio] 32.58 kg/m2 Pascale Aichholz [employer] Work Phone: [facility] 10-23-2024 17:34-0400 Body temperature 98.8 [degF] Pascale Aichholz [employer] Work Phone: [facility] 10-23-2024 17:34-0400 Body weight 88.81 kg Pascale Aichholz [employer] Work Phone: [facility] 10-23-2024 17:34-0400 Diastolic blood pressure 85 mm[Hg] Pascale Aichholz [employer] Work Phone: [facility] 10-23-2024 17:34-0400 Heart rate 92 /min Pascale Aichholz [employer] Work Phone: [facility] 10-23-2024 17:34-0400 Respiratory rate 18 /min Pascale Aichholz [employer] Work Phone: [facility] 10-23-2024 17:34-0400 SaO2% (BldA) [Mass fraction] 97 % Pascale Aichholz [employer] Work Phone: [facility] 10-23-2024 17:34-0400 Systolic blood pressure 98 mm[Hg] Pascale Aichholz [employer] Work Phone: [facility] 10-02-2024 16:51-0400 Body height 165.1 cm Pascale Arana [employer] Work Phone: [facility] 10-02-2024 16:51-0400 Body mass index (BMI) [Ratio] 33.51 kg/m2 Pascale Herreraz [employer] Work Phone: [facility] 10-02-2024 16:51-0400 Body temperature 97.81 [degF] Pascale Arana [employer] Work Phone: [facility] 10-02-2024 16:51-0400 Body weight 91.35 kg Pascale Arana [employer] Work Phone: [facility] 10-02-2024 16:51-0400 Heart rate 68 /min Pascale Arana [employer] Work Phone: [facility] 10-02-2024 16:51-0400 Respiratory rate 18 /min Pascale Arana [employer] Work Phone: [facility] 10-02-2024 16:51-0400 SaO2% (BldA) [Mass fraction] 97 % Pascale Arana [employer] Work Phone: [facility] 09-04-2024 16:10-0500 Body height 165.1 cm Angel Luis Groves [employer] Work Phone: [facility] 09-04-2024 16:10-0500 Body mass index (BMI) [Ratio] 33.28 kg/m2 Angel Luis Groves [employer] Work Phone: [facility] 09-04-2024 16:10-0500 Body temperature 97.2 [degF] Angel Luis Groves [employer] Work Phone: [facility] 09-04-2024 16:10-0500 Body weight 90.72 kg Angel Luis Groves [employer] Work Phone: [facility] 09-04-2024 16:10-0500 Diastolic blood pressure 60 mm[Hg] Angel Luis Groves [employer] Work Phone: [facility] 09-04-2024 16:10-0500 Heart rate 79 /min Angel Luis Groves [employer] Work Phone: [facility] 09-04-2024 16:10-0500 Respiratory rate 16 /min Angel Luis Groves [employer] Work Phone: [facility] 09-04-2024 16:10-0500 SaO2% (BldA) [Mass fraction] 98 % Angel Luis Groves [employer] Work Phone: [facility] 09-04-2024 16:10-0500 Systolic blood pressure 100 mm[Hg] Angel Luis Groves [employer] Work Phone: [facility] 08-12-2024 16:04-0500 Body mass index (BMI) [Ratio] 33.32 kg/m2 Pascale Derrickpiperholz [employer] Work Phone: [facility] 08-12-2024 16:04-0500 Body temperature 98.1 [degF] Pascale Aichholz [employer] Work Phone: [facility] 08-12-2024 16:04-0500 Body weight 90.81 kg Pascale Aichholz [employer] Work Phone: [facility] 08-12-2024 16:04-0500 Diastolic blood pressure 62 mm[Hg] Pascale Aichholz [employer] Work Phone: [facility] 08-12-2024 16:04-0500 Heart rate 80 /min Pascale Aichholz [employer] Work Phone: [facility] 08-12-2024 16:04-0500 Respiratory rate 20 /min Pascale Aichholz [employer] Work Phone: [facility] 08-12-2024 16:04-0500 SaO2% (BldA) [Mass fraction] 97 % Pascale Aichholz [employer] Work Phone: [facility] 08-12-2024 16:04-0500 Systolic blood pressure 90 mm[Hg] Pascale Arana [employer] Work Phone: [facility] 07-31-2024 14:59-0500 Body height 165.1 cm Angel Luis Groves [employer] Work Phone: [facility] 07-31-2024 14:59-0500 Body mass index (BMI) [Ratio] 34.28 kg/m2 Angel Luis Groves [employer] Work Phone: [facility] 07-31-2024 14:59-0500 Body temperature 96.21 [degF] Angel Luis Groves [employer] Work Phone: [facility] 07-31-2024 14:59-0500 Body weight 93.44 kg Angel Luis Groves [employer] Work Phone: [facility] 07-31-2024 14:59-0500 Diastolic blood pressure 62 mm[Hg] Angel Luis Groves [employer] Work Phone: [facility] 07-31-2024 14:59-0500 Heart rate 83 /min Angel Luis Groves [employer] Work Phone: [facility] 07-31-2024 14:59-0500 Respiratory rate 22 /min Angel Luis Groves [employer] Work Phone: [facility] 07-31-2024 14:59-0500 SaO2% (BldA) [Mass fraction] 98 % Angel Luis Groves [employer] Work Phone: [facility] 07-31-2024 14:59-0500 Systolic blood pressure 100 mm[Hg] Angel Luis Groves [employer] Work Phone: [facility] 04-10-2024 15:56-0400 Body height 165.1 cm Angel Luis Groves [employer] Work Phone: [facility] 04-10-2024 15:56-0400 Body mass index (BMI) [Ratio] 33.61 kg/m2 Angel Luis Groves [employer] Work Phone: [facility] 04-10-2024 15:56-0400 Body temperature 98.29 [degF] Angel Luis Groves [employer] Work Phone: [facility] 04-10-2024 15:56-0400 Body weight 91.63 kg Angel Luis Groves [employer] Work Phone: [facility] 04-10-2024 15:56-0400 Diastolic blood pressure 68 mm[Hg] Angel Luis Groves [employer] Work Phone: [facility] 04-10-2024 15:56-0400 Heart rate 67 /min Angel Luis Groves [employer] Work Phone: [facility] Comment on above: 98% O2 04-10-2024 15:56-0400 Systolic blood pressure 100 mm[Hg] Angel Luis Groves [employer] Work Phone: [facility] 03-18-2024 15:06-0400 Blood Pressure Location Ron Palomares [facility] 03-18-2024 15:06-0400 Diastolic blood pressure 69 mm[Hg] Ron Palomares [facility] 03-18-2024 15:06-0400 Heart rate 85 /min Ron Maddoxli [facility] 03-18-2024 15:06-0400 Respiratory rate 16 /min Lynnd Jelani [facility] 03-18-2024 15:06-0400 Systolic blood pressure 107 mm[Hg] Lynnd Mojesicali [facility] 03-12-2024 15:46-0400 Body height 165.1 cm Angel Luis Groves [employer] Work Phone: [facility] 03-12-2024 15:46-0400 Body mass index (BMI) [Ratio] 33.28 kg/m2 Angel Luis Mcelroypatrick [employer] Work Phone: [facility] 03-12-2024 15:46-0400 Body temperature 98.01 [degF] Angel Luis Mcelroypatrick [employer] Work Phone: [facility] 03-12-2024 15:46-0400 Body weight 90.72 kg Angel Luis Mcelroypatrick [employer] Work Phone: [facility] 03-12-2024 15:46-0400 Diastolic blood pressure 70 mm[Hg] Angel Luis Mcelroypatrick [employer] Work Phone: [facility] 03-12-2024 15:46-0400 Heart rate 71 /min Angel Luis Mcelroypatrick [employer] Work Phone: [facility] Comment on above: 99% O2 03-12-2024 15:46-0400 Systolic blood pressure 100 mm[Hg] Angel Luis Mcelroypatrick [employer] Work Phone: [facility] 06-07-2023 16:03-0500 Blood Pressure Location Segun HOLLOWAY [facility] [place] 06-07-2023 16:03-0500 Diastolic blood pressure 88 mm[Hg] Segun WILLARDL [facility] [place] 06-07-2023 16:03-0500 Heart rate 72 /min Segun WILLARDL [facility] [place] 06-07-2023 16:03-0500 Respiratory rate 16 /min Segun WILLARDL [facility] [place] 06-07-2023 16:03-0500 Systolic blood pressure 130 mm[Hg] Segun WILLARDL [facility] [place] 08-30-2021 13:00-0500 Body height 165.1 cm Kristin Ginty Other [facility] Other 08-30-2021 13:00-0500 Body mass index (BMI) [Ratio] 30.95 kg/m2 Kristin Ginty Other [facility] Other 08-30-2021 13:00-0500 Body temperature 98 [degF] Kristin Ginty Other [facility] Other 08-30-2021 13:00-0500 Body weight 84.37 kg Kristin Ginty Other [facility] Other 08-30-2021 13:00-0500 Respiratory rate 16 /min Kristin Ginty Other [facility] Other 08-30-2021 13:00-0500 SaO2% (BldA) [Mass fraction] 98 % Kristin Ginty Other [facility] Other Encounters Encounter Date Encounter Type Care Provider Facility Start: 05-02-2025 End: 05-02-2025 Telephone encounter [facility] Start: 04-30-2025 End: 04-30-2025 ambulatory Pascale GREENC Work Phone: [facility] Work Phone: Start: 04-30-2025 End: 04-30-2025 Patient encounter procedure Pascale GREENC -[facility] Work Phone: Start: 04-23-2025 End: 04-23-2025 Patient encounter procedure Shun Arshad MD -[facility] Work Phone: Start: 04-23-2025 End: 04-23-2025 ambulatory Pascale GREENC Work Phone: [facility] Work Phone: Start: 04-23-2025 Non-patient / Non-visit Tony Dong MD -[facility] Work Phone: Start: 04-09-2025 End: 04-10-2025 ambulatory ROHAN MALICKI Not Available Start: 04-09-2025 End: 04-09-2025 Bamboo flowsheet Rohan Malicki [employer] [facility] Start: 04-09-2025 End: 04-09-2025 Bamboo flowsheet Rohan Malicki [employer] [facility] Start: 04-03-2025 [...] 45 minutes Jovon Asif MD Work Phone: [facility] Comment on above: Cystocele with secon d degree uterine prolapse (Primary Dx); History of reconstructive repair of rectocele; Urge urinary incontinence Start: 04-02-2025 End: 04-02-2025 ambulatory JOVON ASIF [facility] Start: 03-25-2025 End: 03-25-2025 ambulatory ROHAN MALICKI Not Available Start: 03-25-2025 End: 03-25-2025 Bamboo flowsheet Rohan Malicki BANK TELLER MACHINE MECHANIC [facility] Start: 03-25-2025 End: 03-25-2025 Bamboo flowsheet Rohan Malicki BANK TELLER MACHINE MECHANIC [facility] Start: 03-25-2025 End: 03-25-2025 ambulatory Pascale Arana Work Phone: [facility] Work Phone: Start: 03-25-2025 End: 03-25-2025 Patient encounter procedure Shun Arshad MD -[facility] Work Phone: Start: 03-10-2025 End: 03-10-2025 ambulatory Flores Eden MD Facility:[facility] Start: 03-06-2025 End: 03-06-2025 ambulatory ROHAN WERNERI Not Available Start: 03-06-2025 End: 03-06-2025 Bamboo flowsheet Rohan Malicki BANK TELLER MACHINE MECHANIC [facility] Start: 03-06-2025 End: 03-06-2025 Bamboo flowsheet Rohan Malicki BANK TELLER MACHINE MECHANIC [facility] Start: 03-05-2025 End: 03-05-2025 Clinisync Result Encounter Pascale Arana [employer] Work Phone: [facility] External Department Unsolicited Start: 03-05-2025 End: 03-05-2025 Clinisync Result Encounter Pascale Arana [employer] Work Phone: [facility] External Department Unsolicited Start: 02-26-2025 End: 02-27-2025 Clinisync Result Encounter Generic External Data Provider [facility] External Department Unsolicited Start: 02-26-2025 End: 02-27-2025 Clinisync Result Encounter Generic External Data Provider [facility] External Department Unsolicited Start: 02-26-2025 End: 02-26-2025 Refill Pascale Arana [employer] Work Phone: [facility] Comment on above: Gastroesophageal ref lux disease, unspecified whether esophagitis present (Primary Dx) Start: 02-25-2025 End: 02-25-2025 Office outpatient visit 25 minutes Pascale Arana [employer] Work Phone: [facility] Comment on above: Severe episode of re [...] insomnia Start: 02-25-2025 End: 02-25-2025 ambulatory PASCALE ARANA Not Available Start: 02-24-2025 End: 02-24-2025 ambulatory EUNICE DIAS Not Available Start: 02-24-2025 End: 02-24-2025 Office outpatient visit 15 minutes Eunice Dias [facility] Work Phone: [facility] Comment on above: JESSIKA (generalized anx iety disorder) ; Severe episode of recurrent major depressive disorder, without psychotic features (HCC); PTSD (post-traumatic stress disorder) ; Insomnia, unspecified type; Sleep apnea, unspecified type Start: 02-24-2025 End: 02-24-2025 Bamboo flowsheet Eunice Dias [facility] Work Phone: [facility] Start: 02-24-2025 End: 02-24-2025 Bamboo flowsheet Eunice Dias [facility] Work Phone: [facility] Start: 02-24-2025 End: 02-24-2025 Chart abstracting Jovon Asif MD Work Phone: [facility] Start: 02-20-2025 End: 02-20-2025 Refill Pascale Arana [employer] Work Phone: [facility] Comment on above: Psychophysiological insomnia Start: 02-19-2025 End: 02-19-2025 Clinisync Result Encounter Generic External Data Provider [facility] External Department Unsolicited Start: 02-19-2025 End: 02-19-2025 Clinisync Result Encounter Generic External Data Provider [facility] External Department Unsolicited Start: 02-11-2025 End: 02-12-2025 Refill Pascale Sumit [employer] Work Phone: [facility] Comment on above: UTI (urinary tract i nfection), uncomplicated; Class 1 obesity due to excess calories without serious comorbidity in adult, unspecified BMI; BMI 32.0-32.9,adult Start: 02-06-2025 End: 02-06-2025 Office outpatient new 30 minutes Shelia Muniz DO Work Phone: [facility] Comment on above: Cystocele with secon d degree uterine prolapse (Primary Dx); History of reconstructive repair of rectocele; Urge urinary incontinence; Incomplete emptying of bladder; Atrophic vaginitis Start: 02-06-2025 End: 02-06-2025 Refill Pascale Arana NP Work Phone: [facility] Comment on above: URTI (acute upper re spiratory infection); Non-recurrent acute suppurative otitis media of both ears without spontaneous rupture of tympanic membranes Start: 02-05-2025 End: 02-05-2025 Clinisync Result Encounter Generic External Data Provider [facility] External Department Unsolicited Start: 02-05-2025 End: 02-05-2025 Clinisync Result Encounter Generic External Data Provider [facility] External Department Unsolicited Start: 01-22-2025 End: 01-22-2025 Bamboo flowsheet Eunice Dias [facility] Work Phone: [facility] Start: 01-22-2025 End: 01-22-2025 Bamboo flowsheet Eunice Dias [facility] Work Phone: [facility] Start: 01-22-2025 End: 01-22-2025 ambulatory EUNICE DIAS Not Available Start: 01-20-2025 End: 01-20-2025 ambulatory Flores Eden MD Facility:[facility] Start: 01-14-2025 End: 01-14-2025 Clinisync Result Encounter Pascale Arana NP Work Phone: [facility] External Department Unsolicited Start: 01-14-2025 End: 01-14-2025 Clinisync Result Encounter Pascale Aichholz [employer] Work Phone: [facility] External Department Unsolicited Start: 01-14-2025 End: 01-14-2025 Refill Pascale Arana [employer] Work Phone: [facility] Comment on above: URTI (acute upper re spiratory infection); Non-recurrent acute suppurative otitis media of both ears without spontaneous rupture of tympanic membranes Start: 01-07-2025 End: 01-07-2025 Orders Only Pascale Arana [employer] Work Phone: [facility] Comment on above: B12 deficiency (Prim radha Dx); Iron deficiency anemia secondary to inadequate dietary iron intake Start: 01-06-2025 End: 01-06-2025 Office outpatient visit 25 minutes Pascale Arana [employer] Work Phone: [facility] Comment on above: Bipolar disorder wit [...] 01-06-2025 End: 01-06-2025 Bamboo flowsheet Pascale Arana [employer] Work Phone: [facility] Start: 01-06-2025 End: 01-06-2025 Bamboo flowsheet Pascale Arana [employer] Work Phone: [facility] Start: 01-06-2025 End: 01-06-2025 Telephone encounter Pascale Arana [employer] Work Phone: [facility] Start: 12-18-2024 End: 12-20-2024 Refill Pascale Arana [employer] Work Phone: [facility] Comment on above: URTI (acute upper re spiratory infection); Non-recurrent acute suppurative otitis media of both ears without spontaneous rupture of tympanic membranes Start: 11-20-2024 End: 11-20-2024 ambulatory PASCALE ARANA Not Available Start: 11-20-2024 End: 11-20-2024 Patient encounter procedure Pascale Arana [employer] Work Phone: [facility] Start: 11-20-2024 End: 11-20-2024 Periodic preventive med est patient 40-64yrs Pascale Arana [employer] Work Phone: [facility] Comment on above: Well woman exam with [...] 11-20-2024 End: 11-20-2024 Bamboo flowsheet Pascale Arana [employer] Work Phone: [facility] Start: 11-20-2024 End: 11-26-2024 Bamboo flowsheet Pascale Arana [employer] Work Phone: [facility] Start: 11-20-2024 End: 11-26-2024 Clinisync Result Encounter Pascale Arana NP Work Phone: [facility] External Department Unsolicited Start: 11-18-2024 End: 11-20-2024 Refill Pascale Arana NP Work Phone: [facility] Comment on above: Overactive bladder d ue to prolapse of female genital organ Gastroesophageal ref lux disease, unspecified whether esophagitis present Psychophysiological insomnia Fibromyalgia Environmental and se asonal allergies URTI (acute upper re spiratory infection); Non-recurrent acute suppurative otitis media of both ears without spontaneous rupture of tympanic membranes Bipolar disorder wit h severe depression ([facility]) Start: 10-23-2024 End: 10-23-2024 Office outpatient visit 15 minutes Pascale Arana NP Work Phone: [facility] Comment on above: Iron deficiency anem ia secondary to inadequate dietary iron intake (Primary Dx); Class 1 obesity due to excess calories without serious comorbidity in adult, unspecified BMI; Cigarette nicotine dependence without complication; B12 deficiency; BMI 32.0-32.9,adult Start: 10-23-2024 End: 10-23-2024 Clinisync Result Encounter Pascale Arana NP Work Phone: [facility] External Department Unsolicited Start: 10-23-2024 End: 10-23-2024 Clinisync Result Encounter Pascale Arana NP Work Phone: [facility] External Department Unsolicited Start: 10-23-2024 End: 01-15-2025 Patient encounter procedure Molina De Anda MD Work Phone: [facility] Start: 10-23-2024 End: 10-23-2024 Refill Molina De Anda MD Work Phone: [facility] Comment on above: URTI (acute upper re spiratory infection); Non-recurrent acute suppurative otitis media of both ears without spontaneous rupture of tympanic membranes Start: 10-03-2024 End: 10-03-2024 Clinisync Result Encounter Pascale Arana NP Work Phone: [facility] External Department Unsolicited Start: 10-03-2024 End: 10-03-2024 Clinisync Result Encounter Pascale Arana NP Work Phone: [facility] External Department Unsolicited Start: 10-02-2024 End: 10-02-2024 Office outpatient visit 25 minutes Pascale Arana NP Work Phone: [facility] Comment on above: Gastroesophageal ref lux [...] 10-02-2024 End: 10-02-2024 Bamboo flowsheet Pascale Sumit [employer] Work Phone: [facility] Start: 10-02-2024 End: 10-02-2024 Bamboo flowsheet Pascale Sumit [employer] Work Phone: [facility] Start: 09-09-2024 End: 09-09-2024 Clinisync Result Encounter Generic External Data Provider [facility] External Department Unsolicited Start: 09-09-2024 End: 09-09-2024 Clinisync Result Encounter Generic External Data Provider [facility] External Department Unsolicited Start: 09-06-2024 End: 09-09-2024 Refill Pascale Arana [employer] Work Phone: [facility] Comment on above: Environmental and se asonal allergies Start: 09-05-2024 End: 09-05-2024 Clinisync Result Encounter Generic External Data Provider [facility] External Department Unsolicited Start: 09-05-2024 End: 09-05-2024 Clinisync Result Encounter Generic External Data Provider [facility] External Department Unsolicited Start: 09-04-2024 End: 09-04-2024 Office outpatient visit 10 minutes Angel Luis Groves [employer] Work Phone: [facility] Comment on above: BMI 33.0-33.9,adult (Primary Dx); Bipolar disorder with severe depression ([facility]); Fibromyalgia; Gastro-esophageal reflux disease without esophagitis; Esophageal reflux; BMI 34.0-34.9,adult; Psychophysiological insomnia; Overactive bladder due to prolapse of female genital organ Start: 09-04-2024 End: 09-04-2024 ambulatory ANGEL LUIS BRITTONZPATRICK Not Available Start: 09-04-2024 End: 09-04-2024 Bamboo flowsheet Angel Luis Groves [employer] Work Phone: [facility] Start: 09-04-2024 End: 09-04-2024 Bamboo flowsheet Angel Luis Groves [employer] Work Phone: [facility] Start: 08-28-2024 End: 08-28-2024 Refill Angel Luis Brittonzpatrick [employer] Work Phone: [facility] Comment on above: Fibromyalgia Start: 08-14-2024 End: 08-14-2024 Refill Angel Luis Groves [employer] Work Phone: [facility] Comment on above: Fibromyalgia Start: 08-12-2024 End: 08-12-2024 Office outpatient visit 25 minutes Pascale Arana [employer] Work Phone: [facility] Comment on above: Acute non-recurrent maxillary sinusitis (Primary Dx); Cigarette nicotine dependence without complication; Class 1 obesity due to excess calories without serious comorbidity in adult, unspecified BMI; Environmental and seasonal allergies; Cutaneous abscess of abdominal wall Start: 08-12-2024 End: 08-12-2024 ambulatory PASCALE ARANA Not Available Start: 08-12-2024 End: 08-12-2024 Bamboo flowsheet Psacale Sumit [employer] Work Phone: [facility] Start: 08-12-2024 End: 08-14-2024 Bamboo flowsheet Pascale Arana [employer] Work Phone: [facility] Start: 08-12-2024 End: 08-14-2024 External Result Encounter Pascale Arana [employer] Work Phone: [facility] External Department Unsolicited Start: 08-05-2024 End: 08-06-2024 Orders Only Angel Luis Groves [employer] Work Phone: [facility] Comment on above: B12 deficiency (Prim radha Dx); Iron deficiency anemia, unspecified iron deficiency anemia type Start: 08-01-2024 End: 08-01-2024 Clinisync Result Encounter Angel Luis Groves [employer] Work Phone: [facility] External Department Unsolicited Start: 08-01-2024 End: 08-01-2024 Clinisync Result Encounter Angel Luis Groves [employer] Work Phone: [facility] External Department Unsolicited Start: 07-31-2024 End: 07-31-2024 Office outpatient visit 15 minutes Angel Luis Blackburnk [employer] Work Phone: [facility] Comment on above: Iron deficiency anem ia secondary to inadequate dietary iron intake (Primary Dx); Fibromyalgia; Psychophysiological insomnia; BMI 34.0-34.9,adult Start: 07-31-2024 End: 07-31-2024 ambulatory ANGEL LUIS MCELROYPATRICK Not Available Start: 07-31-2024 End: 07-31-2024 Bamboo flowsheet Angel Luis Groves [employer] Work Phone: [facility] Start: 07-31-2024 End: 07-31-2024 Bamboo flowsheet Angel Luis Mcelroypatrick [employer] Work Phone: [facility] Start: 07-25-2024 End: 07-29-2024 Refill Angel Luis Mcelroypatrick [employer] Work Phone: [facility] Comment on above: Psychophysiological insomnia Start: 06-25-2024 End: 06-25-2024 Refill Angel Luis Groves [employer] Work Phone: [facility] Comment on above: Psychophysiological insomnia Start: 06-11-2024 End: 06-11-2024 Orders Only Angel Luis Groves [employer] Work Phone: [facility] Comment on above: Fibromyalgia (Primar y Dx) Start: 06-03-2024 End: 06-03-2024 Refill Angel Luis Groves [employer] Work Phone: [facility] Comment on above: Fibromyalgia Start: 05-27-2024 End: 05-27-2024 Orders Only Angel Luis Groves [employer] Work Phone: [facility] Comment on above: Psychophysiological insomnia (Primary Dx) Start: 04-18-2024 End: 04-18-2024 ambulatory MD Tyson Collazo Work Phone: [facility] Work Phone: Start: 04-18-2024 End: 04-18-2024 Patient encounter procedure MD Tyson Collazo Work Phone: [facility] [address] Work Phone: Start: 04-10-2024 End: 04-10-2024 Office outpatient visit 15 minutes Angel Luis Groves [employer] Work Phone: [facility] Comment on above: Psychophysiological insomnia (Primary Dx); Fibromyalgia; Constipation, unspecified constipation type Start: 04-10-2024 End: 04-10-2024 Bamboo flowsheet Angel Luis Groves [employer] Work Phone: [facility] Start: 04-10-2024 End: 04-10-2024 Bamboo flowsheet Angel Luis Groves [employer] Work Phone: [facility] Start: 03-18-2024 End: 03-18-2024 ambulatory Ron Palomares Facility:[facility] Start: 03-18-2024 End: 03-18-2024 Patient encounter procedure Ron Palomares [facility] Start: 03-13-2024 End: 03-13-2024 Refill Angel Luis Groves [employer] Work Phone: [facility] Comment on above: Fibromyalgia (Primar y Dx) Start: 03-12-2024 End: 03-12-2024 Office outpatient visit 15 minutes Angel Luis Groves [employer] Work Phone: [facility] Comment on above: Constipation, unspec ified constipation type (Primary Dx); Fibromyalgia Start: 03-12-2024 End: 03-12-2024 Bamboo flowsheet Angel Luis Blackburnk [employer] Work Phone: [facility] Start: 03-12-2024 End: 03-12-2024 Bamboo flowsheet Angel Luis Groves [employer] Work Phone: [facility] Start: 03-07-2024 ambulatory Mohamad Mouchli Facilit y:Ron BLAND Start: 02-26-2024 Non-patient / Non-visit MD Roel Collazo Work Phone: [facility] Work Phone: Start: 08-25-2023 Casey Main MD Work Phone: [facility] Comment on above: Bipolar disorder wit h severe depression (CMS/HCC) Start: 07-19-2023 End: 07-19-2023 ambulatory Segun HOLLOWAY Facility:CD:[id number] Start: 06-07-2023 End: 06-07-2023 ambulatory Segun HOLLWOAY Facility: [facility] Start: 06-07-2023 End: 06-07-2023 Patient encounter procedure Segun HOLLOWAY General Surgery Nill/[facility] Start: 06-05-2023 ambulatory Mohlilod Mojesicali Facilit y:STEPHANIE [facility]wellFredrick Start: 05-18-2023 ambulatory Mohamad Mouchli Facilit y: Jun Start: 04-07-2023 End: 04-07-2023 ambulatory [facility] Start: 02-08-2023 ambulatory [facility] Start: 05-31-2022 End: 06-01-[address] TAMIKO NETTLES Facility:[facility] Start: 05-10-2022 End: 05-11-[address] ELLIOT JOSE Facility:[facility] Start: 04-19-2022 End: 04-20-2022 ambulatory KAJAL ESCOBEDO Facility:[facility] Start: 03-29-2022 End: 03-30-2022 ambulatory KAJAL ESCOBEDO Facility:[facility] Start: 03-10-2022 End: 03-10-2022 ambulatory TAWANA FOSTER Facility:[facility] Start: 03-07-2022 Encounter for prepro cedural cardiovascular examination [facility] Letitia [facility] Start: 03-07-2022 Encounter for prepro cedural laboratory examination [facility] Letitia [facility] Start: 03-03-2022 End: 03-04-2022 ambulatory TAWANA Dong [facility] Facility:[facility] Start: 03-03-2022 End: 03-04-2022 Encounter for preprocedural laboratory examination TAWANA Dong [facility] Facility:[facility] Start: 02-22-2022 End: 02-23-2022 ambulatory TAWANA Dong [facility] Facility:[facility] Start: 02-09-2022 End: 02-10-2022 ambulatory TAWANA Dong [facility] Facility:[facility] Start: 08-30-2021 End: 08-30-2021 ambulatory Kristin Quintana Other [id number] Other Start: 08-30-2021 Office outpatient vi sit 15 minutes Kristin Quintana [facility] [place] Start: 06-07-2021 End: 06-07-[address] ROBERTO SCOTT Facility:[facility] Start: 11-14-2018 End: 11-15-2018 Patient encounter procedure DEFAULT PHYSICIAN Facility:[facility] Procedures Date Procedure Procedure Detail Performing Clinician Start: 04-09-2025 End: 04-10-2025 Psychotherapy w/patient 60 minutes JESSIKA (generalized anxiety disorder) 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 Comment on above: JESSIKA (generalized anxiety disorder) ; Severe episode of recurrent major depressive disorder, without psychotic features (HCC); PTSD (post-traumatic stress disorder) Start: 03-25-2025 End: 03-25-2025 Psychotherapy w/patient 60 minutes JESSIKA (generalized anxiety disorder) 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 Comment on above: JESSIKA (generalized anxiety disorder) ; Severe episode of recurrent major depressive disorder, without psychotic features (HCC); PTSD (post-traumatic stress disorder) Start: 03-06-2025 End: 03-06-2025 Psychiatric diagnostic evaluation JESSIKA (generalized anxiety disorder) 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 Comment on above: JESSIKA (generalized anxiety disorder) ; Severe episode of recurrent major depressive disorder, without psychotic features (HCC); PTSD (post-traumatic stress disorder) Start: 03-05-2025 ALL CBC WITH AUTO DIFF Pascale Arana [employer] Work Phone: Start: 02-26-2025 SEGMENTAL BLOOD PRESSURE Generic Externa l Data Provider Start: 02-19-2025 XR FOOT LT MIN 3V Generic External Data Provider Start: 02-05-2025 MR LUMBAR SPINE WO CON Generic External Data Provider Start: 02-05-2025 Mri spinal canal cervical w/o contrast matrl Generic External Data Provider Start: 01-22-2025 End: 01-22-2025 Psychiatric diagnostic eval w/medical services JESSIKA (generalized anxiety disorder) Eunice Dias PMP- Work Phone: Comment on above: JESSIKA (generalized anxiety disorder) ; Severe episode of recurrent major depressive disorder, without psychotic features (HCC); PTSD (post-traumatic stress disorder) ; Insomnia, unspecified type; Sleep apnea, unspecified type; Encounter for drug screening Start: 01-14-2025 ALL CBC WITH AUTO DIFF aPscale Arana [employer] Work Phone: Start: 11-20-2024 IGP,APTIMA HPV,AGE GDLN Pascale Arana [employer] Work Phone: Start: 11-20-2024 Microscopic observation [Identifier] in Cervix by Cyto stain Pascale Arana [employer] Work Phone: Start: 10-23-2024 MM TOMOSYNTHESIS SCREENING BI Pascale lui [employer] Work Phone: Start: 10-23-2024 Mammography Pascale Arana [employer] Work Phone: Start: 10-03-2024 ALL CBC WITH AUTO DIFF Pascale Sumit [employer] Work Phone: Start: 09-09-2024 CT FOOT LT WO CON Generic External Data Provider Start: 09-05-2024 XR FOOT LT MIN 3V Generic External Data Provider Start: 08-12-2024 CHRONIC WOUND/ULCER (HTRX) Pascale Sumit [employer] Work Phone: Start: 08-01-2024 ALL CBC WITH AUTO DIFF Angel Luis Brittonzpatrick [employer] Work Phone: Start: 07-19-2023 Colonoscopy Shaikh Etelvina WELLER Work Phone: Start: 02-09-2023 Esophagogastroduodenoscopy Segun NILL Start: 07-24-2019 Bypass of stomach Segun NILL Start: 07-24-2018 Transurethral cystoscopy Segun NILL Start: 07-24-2017 Transurethral cystoscopy Segun NILL Cholecystectomy Segun NILL H/O: surgery History of reconstructive repair of rectocele Shelia Muniz DO Work Phone: H/O: surgery History of reconstructive repair of rectocele Jovon Asif MD Work Phone: H/O: surgery History of reconstructive repair of rectocele Areli Gudino CMA Ligation of fallopian tube M ichhina NILL Repair of cystocele Segun NILL Plan of Treatment Date Care Activity Detail Author Start: 07-19-2033 Screening for malign ant neoplasm of colon [facility] Start: 11-21-2027 Screening for malign ant neoplasm of cervix [facility] Start: 2026 Tobacco Screening Tobacco Screening [facility] Start: 04-02-2026 Adult BMI Screening Adult BMI Screen [facility] Start: 02-24-2026 Tobacco Screening Tobacco Screening [facility] Start: 02-06-2026 Adult BMI Screening Adult BMI Screen [facility] Start: 02-06-2026 Tobacco Screening Tobacco Screening [facility] Start: 10-23-2025 Screening for malign ant neoplasm of breast Mammogram [facility] Start: 05-28-2025 End: 05-28-2025 Patient encounter procedure 05/28/2025 2:30 PM EST Procedure visit [facility] [address] [facility] [address] [place] [id number] Jovon Asif MD [address] [place] [address] [facility] Start: 05-21-2025 End: 05-21-2025 Social Work 05/21/2025 4:30 PM EDT Social Work [facility] [address] [place] [id number] Rohan Waters LPC [facility] Start: 05-19-2025 End: 05-19-2025 Patient encounter procedure 05/19/2025 3:30 PM EDT Office Visit [facility] [address] [place] [id number] Macarena Chang, ENGINE ROOM OPERATOR-PHYSICS TUTOR [address] [place] [address] [facility] Start: 04-30-2025 End: 04-30-2025 Patient encounter procedure 04/30/2025 4:30 PM EDT Office Visit [facility] [address] [place] [phone] Pascale Arana, MARY JO [address] [place] [address] [facility] Start: 04-24-2025 End: 04-24-2025 Social Work 04/24/2025 4:30 PM EDT Social Work [facility] [address] [place] [id number] Rohan Waters LPC [facility] Start: 04-09-2025 End: 04-09-2025 Social Work [facility] Comment on above: Arrived Start: 04-03-2025 End: 04-03-2025 Telemedicine consultation with patient 04/03/2025 9:00 AM EDT Telemedicine [facility] [address] [place] [address] Eunice Dias, PMHNP-BC [address] [place] [address] [facility] Start: 04-02-2025 End: 04-02-2025 Patient encounter procedure 04/02/2025 3:00 PM EDT Office Visit [facility] [address] [place] [address] Jovon Asif MD [address] [place] [address] [facility] Start: 03-25-2025 End: 03-25-2025 Social Work [facility] Comment on above: Arrived Start: 03-24-2025 Influenza vaccination [facility] Start: 03-06-2025 End: 03-06-2025 Social Work [facility] Comment on above: Arrived Start: 02-25-2025 End: [...] 02/25/2025 11:30 AM EDT Office Visit [facility] [address] [place] [address] Pascale Arana, [employer] [address] [place] [phone] [facility] Start: 02-24-2025 End: 02-24-2025 Patient encounter procedure [facility] Start: 02-05-2025 End: 02-05-2025 Patient encounter procedure 02/05/2025 3:20 PM EDT Office Visit [facility] [address] [place] [address] Pascale Arana, [employer] [address] [place] [phone] [facility] Start: 01-22-2025 End: 01-22-2025 Patient encounter procedure [facility] Comment on above: Bipolar disorder wit h severe depression (HCC) Start: 01-07-2025 End: 01-07-2026 CBC W Auto Differential panel - Blood CBC and differential Lab Routine Iron deficiency anemia secondary to inadequate dietary iron intake Expected: 01/07/2025 (Approximate), Expires: 01/07/2026 [facility] Work Phone: Comment on above: [...] iron intake Expected: 01/07/2025 (Approximate), Expires: 01/07/2026 [facility] Comment on above: Expected: 01/07/2025 (Approximate), Expires: 01/07/2026 Start: 01-07-2025 End: 01-07-2026 Iron + transferrin + TIBC Iron + transferrin + TIBC Lab Routine Iron deficiency anemia secondary to inadequate dietary iron intake Expected: 01/07/2025 (Approximate), Expires: 01/07/2026 [facility] Comment on above: Expected: 01/07/2025 (Approximate), Expires: 01/07/2026 Start: 01-06-2025 End: 01-06-2025 Patient encounter procedure [facility] Comment on above: Gastroesophageal ref lux disease, unspecified whether esophagitis present (Primary Dx); Class 1 obesity due to excess calories without serious comorbidity with body mass index (BMI) of 32.0 to 32.9 in adult; Cigarette nicotine dependence without complication Start: 11-20-2024 End: 11-20-2024 Patient encounter procedure 11/20/2024 3:20 PM EDT Office Visit [facility] [address] [place] [address] Pascale Arana NP [address] [place] [address] [facility] Start: 11-20-2024 End: 11-20-2025 THIN PREP TIS PAP AND HR HPV DNA THIN PREP TIS PAP AND HR HPV DNA Pathology and Cytology Routine Well woman exam with routine gynecological exam Expected: 11/20/2024 (Approximate), Expires: 11/20/2025 [facility] Work Phone: Comment on above: Expected: 11/20/2024 (Approximate), Expires: 11/20/2025 Start: 10-23-2024 End: 10-23-2024 Patient encounter procedure 10/23/2024 5:30 PM EDT Procedure Visit [facility] [address] [place] [address] Pascale Arana, [employer] [address] [place] [phone] [facility] Start: 10-07-2024 Influenza vaccination Influenza Vacc ine (#1) [facility] Comment on above: Postponed from 03/24 (Patient Refused) Start: 10-04-2024 End: 08-06-2025 CBC W Auto Differential panel - Blood CBC and differential Lab Routine B12 deficiency Iron deficiency anemia, unspecified iron deficiency anemia type Expected: 10/04/2024 (Approximate), Expires: 08/06/2025 [facility] Work Phone: Comment on above: Expected: 10/04/2024 (Approximate), Expires: 08/06/2025 Start: 10-04-2024 End: 08-06-2025 Cobalamin (Vitamin B12) [Mass/volume] in Serum or Plasma Vitamin B12 Lab Routine B12 deficiency Iron deficiency anemia, unspecified iron deficiency anemia type Expected: 10/04/2024 (Approximate), Expires: 08/06/2025 [facility] Comment on above: Expected: 10/04/2024 (Approximate), Expires: 08/06/2025 Start: 10-04-2024 End: 08-06-2025 Ferritin [Mass/volume] in Serum or Plasma Ferritin Lab Routine B12 deficiency Iron deficiency anemia, unspecified iron deficiency anemia type Expected: 10/04/2024 (Approximate), Expires: 08/06/2025 [facility] Comment on above: Expected: 10/04/2024 (Approximate), Expires: 08/06/2025 Start: 10-04-2024 End: 08-06-2025 Iron + transferrin + TIBC Iron + transferrin + TIBC Lab Routine B12 deficiency Iron deficiency anemia, unspecified iron deficiency anemia type Expected: 10/04/2024 (Approximate), Expires: 08/06/2025 [facility] Comment on above: Expected: 10/04/2024 (Approximate), [...] B12 deficiency Expected: 10/02/2024 (Approximate), Expires: 10/02/2025 [facility] Comment on above: Expected: 10/02/2024 (Approximate), Expires: 10/02/2025 Start: 10-02-2024 End: 10-02-2025 Cobalamin (Vitamin B12) [Mass/volume] in Serum or Plasma Vitamin B12 Lab Routine B12 deficiency Expected: 10/02/2024 (Approximate), Expires: 10/02/2025 [facility] Comment on above: Expected: 10/02/2024 (Approximate), Expires: 10/02/2025 Start: 10-02-2024 End: 10-02-2025 Ferritin [Mass/volume] in Serum or Plasma Ferritin Lab Routine Iron deficiency anemia secondary to inadequate dietary iron intake Expected: 10/02/2024 (Approximate), Expires: 10/02/2025 [facility] Comment on above: Expected: 10/02/2024 (Approximate), Expires: 10/02/2025 Start: 10-02-2024 End: 10-02-2025 Iron + transferrin + TIBC Iron + transferrin + TIBC Lab Routine Iron deficiency anemia secondary to inadequate dietary iron intake Expected: 10/02/2024 (Approximate), Expires: 10/02/2025 [facility] Comment on above: Expected: 10/02/2024 (Approximate), Expires: 10/02/2025 Start: 10-02-2024 End: 12-02-2025 MG Breast - bilateral Screening Bilateral screening mammogram Imaging Routine Encounter for screening mammogram for malignant neoplasm of breast Expected: 10/02/2024 (Approximate), Expires: 12/02/2025 [facility] Work Phone: Comment on above: Expected: 10/02/2024 (Approximate), Expires: 12/02/2025 Start: 09-04-2024 End: 09-04-2024 Patient encounter procedure [facility] Comment on above: Arrived Start: 08-12-2024 End: 08-12-2024 Patient encounter procedure 08/12/2024 4:00 PM EST Office Visit [facility] [address] [place] [address] Pascale Arana NP [address] [place] [address] Arrived [facility] Comment on above: Arrived Start: 08-12-2024 End: 08-12-2025 SUPERFICIAL WOUND (HTRX) SUPERFICIAL WOUND (HTRX) Lab Routine Cutaneous abscess of abdominal wall Expected: 08/12/2024 (Approximate), Expires: 08/12/2025 [facility] Work Phone: Comment on above: Expected: 08/12/2024 (Approximate), Expires: 08/12/2025 Start: 07-31-2024 End: 07-31-2024 Patient encounter procedure [facility] Comment on above: Arrived Start: 07-31-2024 End: 07-31-2025 Cobalamin (Vitamin B12) [Mass/volume] in Serum or Plasma Vitamin B12 Lab Routine Iron deficiency anemia secondary to inadequate dietary iron intake Expected: 07/31/2024 (Approximate), Expires: 07/31/2025 [facility] Comment on above: Expected: 07/31/2024 (Approximate), Expires: 07/31/2025 Start: 07-31-2024 End: 07-31-2025 Ferritin [Mass/volume] in Serum or Plasma Ferritin Lab Routine Iron deficiency anemia secondary to inadequate dietary iron intake Expected: 07/31/2024 (Approximate), Expires: 07/31/2025 [facility] Comment on above: Expected: 07/31/2024 (Approximate), Expires: 07/31/2025 Start: 07-31-2024 End: 07-31-2025 Iron + transferrin + TIBC Iron + transferrin + TIBC Lab Routine Iron deficiency anemia secondary to inadequate dietary iron intake Expected: 07/31/2024 (Approximate), Expires: 07/31/2025 [facility] Comment on above: Expected: 07/31/2024 (Approximate), Expires: 07/31/2025 Start: 07-10-2024 End: 07-10-2024 Patient encounter procedure 07/10/2024 4:30 PM EST Office Visit [facility] [address] [place] [address] Angel Luis Groves, [employer] [address] [place] [address] [facility] Start: 06-05-2024 End: 06-05-2024 Patient encounter procedure 06/05/2024 5:30 PM EST Office Visit [facility] [address] [place] [address] Angel Luis Groves, [employer] [address] [place] [address] [facility] Start: 04-10-2024 End: 04-10-2024 Patient encounter procedure [facility] Comment on above: Arrived Start: 03-24-2024 Influenza vaccination Influenza Vacc ine (#1) [facility] Start: 03-12-2024 End: 03-12-2024 Patient encounter procedure 03/12/2024 3:30 PM EDT Office Visit [facility] [address] [place] [address] Angel Luis Groves, [employer] [address] [place] [address] Arrived [facility] Comment on above: Arrived Start: 11-13-2023 End: 11-13-2023 Patient encounter procedure 11/13/2023 4:45 PM EDT Office Visit [facility] [address] [place] [phone] Shaikh Main MD [address] [place] [address] [facility] Start: 03-24-2023 Influenza vaccination Influenza Vacc ine (#1) [facility] Start: 2021 Administration of varicella zoster vaccine Zoster (Shingles) Vaccine (1 of 2) [facility] Start: 2011 Screening for malign ant neoplasm of breast Mammogram [facility] Start: 2001 Screening for malign ant neoplasm of cervix [facility] Start: 1992 Screening for malign ant neoplasm of cervix Pap Smear [facility] Start: 1990 DTaP,Tdap and Td Vac cines (1 - Tdap) DTaP,Tdap and Td Vaccines (1 - Tdap) [facility] Start: 1989 Adult BMI Follow Up Plan Adult BMI Follow Up Plan [facility] Start: 1983 Depression Screening Depression Scre ening [facility] Start: 1971 Screening for malign ant neoplasm of colon [facility] Start: 1971 Screening for malign ant neoplasm of lung Lung Cancer Screening Shared Decision Making [facility] Start: 1971 Tobacco Counseling Tobacco Counselin g [facility] CBC W Auto Different ial panel - Blood CBC and differential Lab Routine Iron deficiency anemia secondary to inadequate dietary iron intake Ordered: 07/31/2024 [facility] Work Phone: Comment on above: Ordered: 07/31/2024 Comprehensive metabo lic 2000 panel - Serum or Plasma [facility] DRUG TOX MONITORIGN 6 W/ CONF,URINE DRUG TOX MONITORIGN 6 W/ CONF,URINE Lab Routine Encounter for drug screening Ordered: 01/22/2025 [facility] Work Phone: Comment on above: Ordered: 01/22/2025 Electromyography [facility] Sjogrens syndrome-A extractable nuclear Ab [Units/volume] in Serum [facility] Sjogrens syndrome-B extractable nuclear Ab [Units/volume] in Serum [facility] Immunizations Immunization Date Immunization Notes Care Provider Fa cility NEGATED: Highlighted row has not occurred!06-07-2023 influenza virus vaccine, unspecified formulation [facility] [place] Payers Date Payer Category Payer Self-pay 2024 Private Health Insurance 2009 Commercial Managed Care - POS [id number] 2009 Managed Care HMO (unspecified) [id number] 1971 Unknown [id number] 2.16.840.1.523221.3.579.2.647 1971 Unknown [id number] 2.16.84 0.1.818580.3.579.2.593 1971 Unknown [id number] 2.16.84 0.1.948599.3.579.2.593 1971 Unknown [id number] 2.16.84 0.1.539636.3.579.2.593 1971 Unknown [id number] 2.16.84 0.1.585392.3.579.2.593 1971 Unknown [id number] 2.16.84 0.1.807559.3.579.2.593 1971 Unknown [id number] 2.16.84 0.1.365290.3.579.2.593 1971 Unknown [id number] 2.16.84 0.1.493378.3.579.2.593 1971 Unknown [id number] 2.16.84 0.1.193420.3.579.2.593 1971 Unknown [id number] 2.16.84 0.1.280840.3.579.2.593 1971 Unknown [id number] 2.16.840.1.216007.3.579.2.727 1971 Unknown [id number] 2.16.840.1.916411.3.579.2.727 1971 Unknown [id number] 2.16.840.1.521478.3.579.2.727 1971 Unknown [id number] 2.16.840.1.681021.3.579.2.727 1971 Unknown [id number] 2.16.840.1.015153.3.579.2.727 1971 Unknown [id number] 2.16.840.1.496116.3.579.2.196 1971 Unknown [id number] 2.16.840.1.775171.3.579.2.196 1971 Unknown [id number] 2.16.840.1.041152.3.579.2.1286 1971 Unknown [id number] 2.16.840.1.505833.3.579.2.1285 1971 Unknown [id number] 2.16.840.1.696684.3.579.2.1258 1971 Unknown [id number] 2.16.840.1.825357.3.579.2.1258 1971 Unknown [id number] 2.16.840.1.246962.3.579.2.1258 1971 Unknown [id number] 2.16.840.1.851042.3.579.2.1258 1971 Unknown [id number] 2.16.840.1.808651.3.579.2.1258 1971 Unknown [id number] 2.16.840.1.322393.3.579.2.1258 1971 Unknown [id number] 2.16.840.1.633005.3.579.2.1258 1971 Unknown [id number] 2.16.840.1.099932.3.579.2.9 1971 Unknown [id number] 2.16.840.1.782496.3.579.2.1258 1971 Unknown [id number] 2.16.840.1.367284.3.579.2.1258 1971 Unknown [id number] 2.16.840.1.177988.3.579.2.1258 1971 Unknown [id number] 2.16.840.1.276670.3.579.2.1258 1971 Unknown [id number] 2.16.840.1.409651.3.579.2.1258 1971 Unknown [id number] 2.16.840.1.059320.3.579.2.1259 1959 Private Health Insurance [id number] 2.16.840.1.743787.19 Unknown Unknown [id number] 2.16.840.1.692875.3.579.2.531 Social History Date Type Detail Facility Unknown if ever smoked [facility] [employer] Other Start: 09-03-2020 End: 08-07-2023 Sex Assigned At [facility] Start: 06-07-2023 End: 03-18-2024 Tobacco smoking status Heavy tobacco smoker (finding) [facility] Tobacco smoking status Former sm okeless tobacco user, quit more than 30 days ago [facility] Start: 07-04-2023 End: 02-06-2025 Tobacco smoking status DCIS Smokes tobacco daily [facility] Start: 07-24-1985 History of tobacco use Cigarette Smo ker [facility] Start: 09-03-2020 End: 07-04-2023 Cigarettes smoked current (pack per day) - Reported 1 [facility] Start: 07-04-2023 End: 02-06-2025 Tobacco use and exposure Smokeless tobacco non-user [facility] Start: 08-14-2023 End: 01-06-2025 Alcohol intake [...] To some extent [facility] (I/We) worried wheteresa er (my/our) food would run out before (I/we) got money to buy more. Never true [facility] Start: 07-04-2023 Tobacco Comment Thinking about quitting [facility] Start: 07-04-2023 Alcohol Comment caffeine: 3-4 cups per day [facility] Start: 1971 Sex Assigned At Not on file N [facility] Start: 1971 Sex Assigned At Female F [facility] History of tobacco use Passive smoker [facility] Start: 01-22-2025 End: 02-25-2025 Alcoholic beverage intake Ex-drinker (finding) [facility] Start: 02-26-2015 Sex Female (finding) [facility] Start: 02-24-2025 End: 2025 Alcoholic beverage intake Current drinker of alcohol (finding) [facility] Goals Date Patient Goal Desired Activity /State Personal health goal Functional Status Date Assessment Result Facility 01-22-2025 Generalized anxiety disorder 7 item (JESSIKA-7) [facility] 01-22-2025 Patient Health Quest ionnaire 2 item (PHQ-2) [Reported] [facility] 01-22-2025 PHQ-9 quick depressi on assessment panel [Reported.PHQ] [facility] 03-18-2024 Functional Status N/A [facility] 06-07-2023 Functional Status N/A [facility] Clinical Notes 08-30-2021 to 05-02-2025 Telephone Encounter - Areli Gudino CMA - 05/02/2025 1:01 PM EDTTelephone Encounter - Jovon Asif MD - 05/02/2025 1:01 PM EDTTelephone Encounter - Areli Gudino CMA - 05/02/2025 1:01 PM EDT Note Date & Type Note Facility 05-02-2025 Miscellaneous Notes Formattin g of this note might be different from the original. Patient called to say she is on Tolterodine for her OAB but is having worse incontinence. She has UDS scheduled in May but her PCP wants to see if she can be put on something else as the current med is the highest dose. Please advise. Myrbetriq 50 milligrams once daily, dispense 30 tablets, 5 refills. Called patient and sent in Myrbetriq to their preferred pharmacy. documented in this encounter [facility] 05-02-2025 Telephone encount er Note Patient called to say she is on Tolterodine for her OAB but is having worse incontinence. She has UDS scheduled in May but her PCP wants to see if she can be put on something else as the current med is the highest dose. Please advise. [facility] 05-02-2025 Telephone encount er Note Myrbetriq 50 milligrams once daily, dispense 30 tablets, 5 refills. [facility] 05-02-2025 Telephone encount er Note Called patient and sent in Myrbetriq to their preferred pharmacy. [facility] 04-03-2025 History of Presen t illness Narrative Images from the original note were not included. HPI: Talia Rutherford is a 54 y.o. female with a history of Fibromyalgia, gastric bypass (2019), sleep apnea (does not wear CPAP), MDD, JESSIKA, PTSD, and Insomnia. Patient is here today for follow-up via telehealth. Location of patient: Home; located in [place] Location of provider: Office; located in [place], [place] Patient seen via: [employer] Tele[facility]; audio and video utilized Reason for [...] HOLLY Marquez as Nurse Practitioner (Behavioral Health) Rohan Waters LPC as Director Of Accreditation (Behavioral Health) PSYCHIATRIC REVIEW OF SYMPTOMS AND [...] she will need to follow-up with other psychometric examiner in the future due to medication adjustment [...] as described above. documented in this encounter [facility] 04-02-2025 History of Presen t illness Narrative SUBJECTIVE Chief Complaint: cystocele HPI Ms. Talia Rutherford is a , 54 y.o. female who is referred by Shelia Muniz DO for cystocele. The patient reports history of rectocele repair in [address] [facility]. She notes a bulge on a [...] pessary previously. Gynecology provider: Dr. Muniz. 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 She [...] given by office. Patient was given a [employer] coupon voucher to use, this is not [...] as documented in the resident's note. Ms. Ruthreford is a 55-year-old, referred for evaluation of [...] diarrhea, fecal incontinence. She is SA. 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 Past [...] with second degree uterine prolapse (Primary) - [facility]ro[facility] - [place], [place] - Measure post void residual 2. History of reconstructive repair of rectocele - [facility] - [place], [place] - Measure post void residual 3. [facility] [place] [place] [facility] Measure post void residual She [...] good candidate for minimally invasive hysterectomy with ivanof bay tissue repair. We will discuss further at her next visit. documented in this encounter [facility] 03-25-2025 Evaluation note Diagnosis Onset Date Resolution Carpal tunnel syndrome of right wrist acute March 25, 2 025 8:29am Cervical stenosis of spine acute March 25, 2 025 8:29am Piriformis syndrome of right side acute March 25, 2 025 8:29am [facility] Work Phone: 1(811) 920-738809-02-2025 Evaluation note* Diagnosis Onset Date Resolution Status Admit Date Carpal tunnel syndrome of right wrist acute March 25, 2 025 8:29am Cervical stenosis of spine acute March 25, 2025 8:29am Piriformis syndrome of right side acute March 25, 2 025 8:29am Class 1 obesity due to exces s calories without serious comorbidity in adult acute April 4:13pm Fibromyalgia acute April 30, 2025 4:13pm GERD without esophagitis acute April 30, 2025 4:13pm CARA (iron deficiency anemia) acute April 30, 2025 4:13pm Nicotine dependence acute 2024 4:13pm [facility] Work Phone: 1(432) 761-395808-05-2025 History of Present illness Narrative* Pascale Arana NP - 02/25/2025 12:44 PM [...] for last several weeks, she has seen psychometric examiner, meds changed and she is now onVraylar, [...] of the risks of continued smoking: stroke, SC, all forms of cancer, lung disease, and [...] of the risks of continued smoking: stroke, SC, all forms of cancer, lung disease, and . Options for quitting smoking include: cold turkey, hypnosis, acupuncture, nicotine replacement meds(gum, lozenges, and patches), Buproprion, and Varenicline. At this time pt is encouraged to evaluate their goals for wanting to quit smoking, and reach out toprovider when ready to start this process documented in this [facility]08-05-2025 Instructions* Patient Instructions* Pascale Arana NP - 02/25/2025 11:30 AM EDT Off work RTW date 03/25/25 documented in this [facility]08-04-2025 History of Present illness Narrative* Eunice Dias, PMHNP-BC - 02/24/2025 3:00 PM EDT Images [...] Sheis working with the pain specialist at [facility] in hopes to get an epidural in [...] care as described above. [id number] History of Present illness Narrative* Shelia Muniz, - 02/06/2025 2:15 PM EDT Subjective Patient ID: Talia Rutherford is a [...] emptying her bladder. She feels that she hasto strain to empty her bladder, and has to get to a bathroom immediately when she feels the urge togo. She states that when she feels the urge to go if she does not get to the bathroom quickly she will lose some urine. She carries extra underwear and pants with her everywhere she goes as this doeshappen frequently. Patient underwent natural menopause approximately 3 years ago. She does not takeany hormone replacement therapy. She has never used vaginal estrogen. She is sexually active with 1partner her . Chief Complaint: Vaginal bulge, history [...] if mesh was utilized [facility] History of Present illness Narrative* Eunice Dias, PMHNP-BC - 01/22/2025 9:00 AM EDT HPI: Talia Rutherford is a 54 y.o. [...] siblings and him having another family in [place]. She describes her mood as sad, anxious, [...] (11) who also lives there. 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 Has been with [employer] for 15 years. She states sheis currently [...] at this time. [place] report checked on 7/1/25 shows she had Ambien filled on 01/17/25 [...] the local ER or call Suicide Hotline (063) for any psychosis, suicidal or homicidal ideation, or with any risk of harm to self or others. Patient was seen Face to Face, Total time spent with patient was 60 minutes, which includes reviewing chart documents, previous notes/records, counseling and discussion with patient and/or coordination of care as described above. documented in this encounterRanken Jordan Pediatric Specialty [id number] Telephone encounter Note* Telephone Encounter - Pascale Arana NP - 01/06/2025 6:12 PM EDT Pt states she was not contacted about her iron infusion can we check with [facility] about this [place] [facility] [id number] Miscellaneous Notes* Telephone Encounter - Pascale Arana NP - 01/06/2025 6:12 PM EDT Pt states she was not contacted about her iron infusion can we check with [facility] about this [place] documented in this encounterRanken Jordan Pediatric Specialty [id number] History of Present illness Narrative* Pascale Arana NP - 01/06/2025 6:10 PM [...] of the risks of continued smoking: stroke, SC, all forms of cancer, lung disease, and [...] of the risks of continued smoking: stroke, SC, all forms of cancer, lung disease, and [...] possible Current med: pantoprazole documented in this [facility]06-16-2025 Instructions* Patient Instructions* Pascale Arana NP - 01/06/2025 4:30 PM EDT Discontinue the citalopram Start lamotrigine 1 pill at night for 2 weeks, then increase to 1 pill twice a day after that documented in this [facility]05-28-2025 Telephone encounter Note* Telephone Encounter - LIZANDRO PICKARD - 12/18/2024 10:48 AM EDT Tho. This is Steve at [facility] (formerly [facility]3] calling in regards to 1 of Pascale giraldo's patients. Her name is Talia Gipson, and we need to clarify some orders with her. She is supposed to be coming later today. Give us a call back as soon as possible. [phone], extension [phone],thank you. [facility] [id number] Miscellaneous Notes* Telephone Encounter - LIZANDRO PICKARD - 12/18/2024 10:48 AM EDT Tho. This is Steve at [facility] (formerly [facility]3] calling in regards to 1 of Pascale giraldo's patients. Her name is Talia Gipson, and we need to clarify some orders with her. She is supposed to be coming later today. Give us a call back as soon as possible. [phone], extension [phone],thank you. documented in this encounterRanken Jordan Pediatric Specialty [id number] History of Present illness Narrative* Pascale Arana NP - 11/20/2024 4:37 PM EDTAssociated Problem(s): Hot flashes due to menopause Discussed insurance concern over dose of celexa, she takes for hot flashes she is willing to trial a decrease in dose to 20mg and will cut her current pill in half * Pascale Arana NP - 11/20/2024 4:32 PM EDTAssociated Problem(s): Well woman exam with routine gynecological exam Thin prep: fu as per pap indications Monthly BSE Weight bearing exercise as well * Pascale Arana NP - 11/20/2024 4:31 PM EDTAssociated Problem(s): Iron deficiency anemia Is prescribed ferrous sulfate, has not been taking this cannot tolerate this Has done IV infusions in the past Will order 1 gm of Infed * Pascale Arana NP - 11/20/2024 4:30 PM EDTAssociated Problem(s): Class 1 obesity due to [...] be month #5 Starting weight was 206 * Pascale Arana NP - 11/20/2024 4:29 PM EDTAssociated Problem(s): GERD (gastroesophageal reflux disease) Recommendations: [...] change to pantoprazole Fu in 6 weeks * LIZANDRO PICKARD - 11/20/2024 3:20 PM EDT Been having stomach aches that come and go in the last few months (before the adipex) pt states shehas GERD and is unsure if it has gotten worse. No complaints of diarrhea, nausea, heart burn, or vomiting. Pt states she only gas and gas pain/bloating in the mid abd. Pt states she never heard anything from gastro back in February * Pascale Arana NP - 11/20/2024 3:20 PM EDT Images from the original note were not included. Talia Rutherford is a 54 y.o. female presents with chief complaint of Weight Check HPI: CARA: insurance denied her Iron infusion that I ordered, they will approve Infed, I did contact [facility] 11/19/24 they can order it, we will order for 1gm IV over 1 hour Been having stomach aches that come and go in the last few months (before the adipex) pt states shehas GERD and is unsure if it has [...] pain (gas), back pain, chills, constipation, diarrhea, dysuria,fever, frequency, headaches, hematuria, nausea, painful intercourse, rash, sore throat or vomiting.She is sexually active. No, her partner does not have an STD. She uses tubal ligation for contraception. She is postmenopausal. Her past medical history is significant for an abdominal surgery. Thereis no history of menorrhagia or metrorrhagia. SUBJECTIVE: [...] pain (gas), blood in stool, constipation, diarrhea, nauseaand vomiting. Genitourinary: Negative for difficulty urinating, dysuria, [...] nursing note reviewed. Exam conducted with a trial attorney present. Constitutional: General: She is not in [...] (Adipex-P) 37.5 MG tablet documented in this encounterRanken Jordan Pediatric Specialty [id number] Instructions* Patient Instructions* Pascale Arana NP - 11/20/2024 3:20 PM EDT Citalopram: currently on 40mg daily, cut pill in half so only at 20mg dose Stop the lanxoprazole, and will trial pantoprazole 40mg daily GERD and if not better at fu appt we will refer to GI We will call about PAP smear results documented in this encounterRanken Jordan Pediatric Specialty [id number] History of Present illness Narrative* Pascale Arana NP - 10/23/2024 6:45 PM EDTAssociated Problem(s): Iron deficiency anemia Is prescribed ferrous sulfate, has not been taking this cannot tolerate this * Pascale Arana NP - 10/23/2024 6:11 PM EDTAssociated Problem(s): B12 deficiency Can lower dose to 1000 mcg daily * LIZANDRO PICKARD - 10/23/2024 5:30 PM EDT Angel Luis told her to take 1 daily B12=2,000 Pt could not find 2000 and could only find 1,000mcg she takes 2 of those daily of b12 * Pascale Arana NP - 10/23/2024 5:30 PM EDT Images from the original note [...] of the risks of continued smoking: stroke, SC, all forms of cancer, lung disease, and [...] Relevant Medications phentermine (Adipex-P) 37.5 MG tablet * Pascale Arana NP - 10/23/2024 7:40 AM EDTAssociated Problem(s): Nicotine dependence The patient has been advised of the risks of continued smoking: stroke, SC, all forms of cancer, lung disease, and . Options for quitting smoking include: cold turkey, hypnosis, acupuncture, nicotine replacement meds(gum, lozenges, and patches), Buproprion, and Varenicline. At this time pt is encouraged to evaluate their goals for wanting to quit smoking, and reach out toprovider when ready to start this process * Pascale Arana NP - 10/23/2024 7:40 AM EDTAssociated Problem(s): Class 1 obesity due [...] Starting weight was 206 documented in this encounterRanken Jordan Pediatric Specialty [id number] History of Present illness Narrative* Pascale Arana NP - 10/02/2024 5:02 PM EDTAssociated Problem(s): GERD (gastroesophageal reflux disease) Recommendations: freq small meals, nothing to eat or drink at least 2 hours prior to bed, limit caffeine, alcohol, as well as spicy foods Meds to limit or avoid if possible: NSAIDS Elevate HOB if possible Current med: lansoprazole * Pascale Arana NP - 10/02/2024 5:00 PM EDT Images from the original note [...] problem. The current episode started more than 1year ago. The problem occurs occasionally. The problem [...] of the risks of continued smoking: stroke, SC, all forms of cancer, lung disease, and . Options for quitting smoking include: cold turkey, hypnosis, acupuncture, nicotine replacement meds(gum, lozenges, and patches), Buproprion, and Varenicline. At this time pt is encouraged to evaluate their goals for wanting to quit smoking, and reach out toprovider when ready to start this process Overactive [...] Medications fexofenadine (Layla Allergy) 180 MG tablet * Pascale Arana NP - 10/02/2024 7:49 AM EDTAssociated Problem(s): Nicotine dependence The patient has been advised of the risks of continued smoking: stroke, SC, all forms of cancer, lung disease, and . Options for quitting smoking include: cold turkey, hypnosis, acupuncture, nicotine replacement meds(gum, lozenges, and patches), Buproprion, and Varenicline. At this time pt is encouraged to evaluate their goals for wanting to quit smoking, and reach out toprovider when ready to start this process * Pascale Arana NP - 10/02/2024 7:49 AM EDTAssociated Problem(s): Iron deficiency anemia Is prescribed ferrous sulfate, has not been taking this May need IV infusion she has done this in the past Recheck labs * Pascale Arana NP - 10/02/2024 7:48 AM EDTAssociated Problem(s): Class 1 obesity due [...] starting weight 200 lbs documented in this [facility]03-12-2025 Instructions* Patient Instructions* Pascale Arana NP - 10/02/2024 5:00 PM EDT Check labs Mammogram: will send to [place] Schedule PAP documented in this [facility]02-12-2025 Instructions* Patient Instructions* Angel Luis Groves NP - 09/04/2024 5:00 PM EST Keep up the good work!!! documented in this [facility]01-22-2025 Telephone encounter Note* Telephone Encounter - Nupur Oneal - 08/14/2024 11:46 AM EST Patient said her dose was increased and now she is out of this medication. Can you please refill. ANAYELI [facility] [id number] Miscellaneous Notes* Telephone Encounter - Nupur Jm - 08/14/2024 11:46 AM EST Patient said her dose was increased and now she is out of this medication. Can you please refill. ANAYELI documented in this encounterRanken Jordan Pediatric Specialty [id number] History of Present illness Narrative* Pascale Arana NP - 08/12/2024 5:50 PM ESTAssociated Problem(s): Cutaneous abscess of abdominal wall Warm compress, recommend since she gets repeated abscess we check a culture and treat appropriatelybased on the culture Culture obtained * Pascale Arana NP - 08/12/2024 4:42 PM ESTAssociated Problem(s): Environmental and seasonal allergies Cont layla, add flonase * Pascale Arana NP - 08/12/2024 4:41 PM ESTAssociated Problem(s): Acute non- recurrent maxillary sinusitis Zithromax , finish atb Fluids, rest Fu if not better, add steroid nasal spray * Pascale Arana NP - 08/12/2024 4:26 PM ESTAssociated Problem(s): Class 1 obesity due to excess [...] well as surgical options for weight loss. * Pascale Arana NP - 08/12/2024 4:25 PM ESTAssociated Problem(s): Nicotine dependence The patient has been advised of the risks of continued smoking: stroke, SC, all forms of cancer, lung disease, and . Options for quitting smoking include: cold turkey, hypnosis, acupuncture, nicotine replacement meds(gum, lozenges, and patches), Buproprion, and Varenicline. At this time pt is encouraged to evaluate their goals for wanting to quit smoking, and reach out toprovider when ready to start this process * LIZANDRO PICKARD - 08/12/2024 4:00 PM EST Pt started last -Monday with symptoms of fatigue, sinus pressure, sore throat, coughing up green mucus, sob, tightness in the chest, plugged ears, sweats and chills, body aches and pains, runny nose, drainage Possible vertigo with sinus Pt took tylenol sinus and mucinex- did not help much No at home testings: flu or covid * Pascale Arana NP - 08/12/2024 4:00 PM EST Images from the original note were not [...] of the risks of continued smoking: stroke, SC, all forms of cancer, lung disease, and [...] abscess we check a culture and treat appropriatelybased on the culture Culture obtained Relevant Orders SUPERFICIAL WOUND (HTRX) documented in this [facility]01-20-2025 Instructions* Patient Instructions* Pascale Arana NP - 08/12/2024 4:00 PM EST Z pack, finish this Fluids, rest Cont layla and we will add flonase nasal spray Warm compress to affected area, will treat based on culture report documented in this [facility]01-08-2025 History of Present illness Narrative* Angel Luis Groves NP - 07/31/2024 3:18 PM ESTAssociated Problem(s): Fibromyalgia Repots aches/pain all over her [...] aches and decrease daily use of Aleve. * Angel Luis Groves NP - 07/31/2024 3:13 PM ESTAssociated Problem(s): BMI 34.0-34.9,adult Pt meets qualifications of OAC 4731-05-27 for weight loss. BMI>30 or >27 with comorbid conditions. Blood pressure WNL. Notify office with any symptoms of chest pain, dyspnea, heart palpitations, or any anxiety symptoms. F/U in 4 weeks to document weight loss. Increase physical activity as tolerated, and lower caloric intake to 1600 calories daily if no contraindications * Angel Luis Groves, MARY JO - 07/31/2024 3:00 PM EST Images from the original note were not [...] (Adipex-P) 37.5 MG tablet documented in this [facility]01-08-2025 Instructions* Patient Instructions* Angel Luis Groves NP - 07/31/2024 3:00 PM EST Notify office with any symptoms of chest pain, dyspnea, heart palpitations, or any anxiety symptoms. F/U in 4 weeks to document weight loss. Increase physical activity as tolerated, and lower caloricintake to 1600 calories daily if no contraindications. documented in this encounterRanken Jordan Pediatric Specialty [id number] History of Present illness Narrative* Angel Luis Germain, [employer] - 09/04/2024 5:00 PM EST Images from the original note were not included. Subjective Patient ID: Talia Rutherford is a 54 y.o. female who presents for Weight Check. HPI Started Adipex in July Starting weight: 206 Weight today: 200 Total loss: 6 pounds 5% is 10 pounds Goal weight: 150 lbs Diet: Believes diet has improved. Has been eating salads at work. Eating smaller portions. Has beenmaking a conscious effort to walk more. Water: [...] Neurological: Negative for dizziness, tremors, syncope, weakness, light- headedness and headaches. Psychiatric/Behavioral: Negative for decreased concentration and suicidal ideas. The patient is notnervous/anxious. Hematological: Does not bruise/bleed easily. Endocrine: Negative [...] Visit Bipolar disorder with severe depression (CMS/[facility]) Relevant Medications citalopram (CeleXA) 40 MG tablet Fibromyalgia Relevant Medications gabapentin (Neurontin) 300 MG capsule Psychophysiological insomnia BMI 33.0-33.9,adult - Primary Started Adipex in July Starting weight: 206 Weight today: 200 Total loss: 6 pounds 5% is 10 pounds Goal weight: 150 lbs Diet: Believes diet has improved. Has been eating salads at work. Eating smaller portions. Has beenmaking a conscious effort to walk more. Water: [...] (Detrol LA) 4 MG 24 hr capsule * Angel Luis Groves NP - 09/04/2024 4:25 PM ESTAssociated Problem(s): BMI 33.0-33.9,adult Started Adipex in July Starting weight: 206 Weight today: 200 Total loss: 6 pounds 5% is 10 pounds Goal weight: 150 lbs Diet: Believes diet has improved. Has been eating salads at work. Eating smaller portions. Has beenmaking a conscious effort to walk more. Water: [...] daily if no contraindications. documented in this encounterRanken Jordan Pediatric Specialty [id number] Telephone encounter Note* Telephone Encounter - Mar Powesr MA - 06/03/2024 9:10 AM EST Pt takes the 60mg in morning and 30 mg in the afternoon, so both. [facility] [id number] Miscellaneous Notes* Telephone Encounter - Mar Powers MA - 06/03/2024 9:10 AM EST Pt takes the 60mg in morning and 30 mg in the afternoon, so both. * Telephone Encounter - Nupur Oneal - 06/03/2024 8:50 AM EST Patient is asking for a 90 day supply. Patient said 60 mg were denied. documented in this encounterRanken Jordan Pediatric Specialty HospitalNfnoyyqyiz20-77-0754 Telephone encounter Note* Telephone Encounter - Nupur Jm - 06/03/2024 8:50 AM EST Patient is asking for a 90 day supply. Patient said 60 mg were denied. [facility] HospitalNfzafxcqde85-96-6254 History of Present illness Narrative* Angel Luis Groves NP - 04/10/2024 6:45 PM EDTAssociated Problem(s): Fibromyalgia Repots aches/pain all over her [...] immune disorder unremarkable. Seeing Rheumatology on 04/18 * Angel Luis Groves NP - 04/10/2024 6:44 PM EDTAssociated Problem(s): Constipation aw GI- no new orders or imaging. Pt states she has now having regular BM's at least once per day. Abdominal pain has since resolved. * Angel Luis Groves NP - 04/10/2024 6:43 PM EDTAssociated Problem(s): Psychophysiological insomnia Ambien no longer effective. Will trial Lunesta * Angel Luis Groves NP - 04/10/2024 4:00 PM EDT Images from the original note [...] Neurological: Negative for dizziness, tremors, syncope, weakness, light- headedness and headaches. Psychiatric/Behavioral: Positive for sleep disturbance. [...] pain has since resolved. documented in this encounterRanken Jordan Pediatric Specialty [id number] History of Present illness Narrative* Angel Luis Groves NP - 03/13/2024 5:35 PM EDTAssociated Problem(s): Constipation Has had 3 BM's. Continue taking Miralax as needed. Follow up with GI next week. * Angel Luis Groves NP - 03/12/2024 4:14 PM EDTAssociated Problem(s): Fibromyalgia Repots aches/pain all over her [...] up for underlying auto immune disorder unremarkable. * Angel Luis Groves NP - 03/12/2024 3:30 PM EDT Images from the original note were not included. Subjective Patient ID: Talia Rutherford is a 53 y.o. female who presents for Follow-up (CONSTIPATION, PT HAS HAD THREE BM'S SINCE LAST VISIT. PT IS STILL HAVING ABDOMINAL PAIN. PT SCHEDULED TO SEE GI [place] ON 03/18 AT 1500. ). HPI IS here today for one week follow-up for constipation. Prescrivbed lacutlose at last visit-did not fern picker. Went on vacation to in [facility] home in [place] for the weekend and had X3 BM's. Denies blood in stool. States she has been stressed recentlty and feels being away heloped her relax and she was finally able to pass BM. Sees GI in [place] on Sunday 03/18 @ 3pm. Still has [...] Neurological: Negative for dizziness, tremors, syncope, weakness, light- headedness and headaches. Psychiatric/Behavioral: Negative for decreased concentration and suicidal ideas. The patient is notnervous/anxious. Hematological: Does not bruise/bleed easily. Objective Physical [...] with GI next week. documented in this encounterRanken Jordan Pediatric Specialty [id number] Instructions* Patient Instructions* Angel Luis Groves NP - 03/12/2024 3:30 PM EDT Referral sent to Rheumatology- Dr. Muller in [place], [place]- they will call you! Have mammogram completed. Call if you need anything! documented in this encounterRanken Jordan Pediatric Specialty [id number] NoteChief Complaint consultation for colonoscopy HPI Staff 53 year old female presents on consultation from Dr. Bustamante for colonoscopy. Patient hospitalized in January with HGB of 4.8. At that time, patient was experiencing profound fatigue, dizziness and SOB. EGD was completed and normal. Patient left AMA prior to colonoscopy being completed. States symptomshave resolved. H/H completed 04/24- 9.3/30.8. She is [...] fibromyalgia, referred for severe anemia, admitted to [facility] in January with hb of [...] swallowing difficulties, no hearing loss, no ear infection(s),no nose bleeds. Cardiovascular: normal blood pressure, no [...] esophagogastroduodenoscopy (02/09/2023), Gastric bypass (2019), Cystoscopy (2018), Cystoscopy(2017), Cholecystectomy, Repair of cystocele, Tubal ligation. Medications [...] mg Cap-DR, 30 mg= (more content not included)...[facility] SystemComment on above:Result Comment: Electronically Signed By: AMIE WELLER, Segun Qureshi.meena\Date and Time Signed: 06/07/23 17:17 [id number] Evaluation + Plan note Diagnostic Tests Pending * Iron Level 06/07/23 * Ferritin 06/07/23 * Vitamin B12 Level 06/07/23 General Surgery [place] 09-15-2023 NoteCardiology Clinic Note Subjective Talia Rutherford is a 53 y.o. [...] Palpitations -Resolved, likely exacerbated (more content not included)...[facility]09-15-2023 NotePatient here for 2 mo follow up and to re-discuss ischemic workup, [...] Systems All other systems reviewed and are negative.[facility] 02-08-2023 NoteCardiovascular Medicine [facility] SUBJECTIVE Chief Complaint Patient presents with [...] about 6 weeks (around 03/22/2023). Carol Webb APRN-[employer] [facility]Gu[facility]2022 Note PROCEDURE: XR FOOT LT MIN 3 VIEWS COMPARISON: 05/10/2022 HISTORY: Pain [...] Electronically authenticated by: TAMIKO NETTLES Date: 2022-05-31 20:30[facility]10-19-2022 NotePROCEDURE: XR FOOT LT MIN 3 VIEWS HISTORY: Pain in left [...] Electronically authenticated by: ELLIOT JOSE Date: 2022-05-11 16:14[facility]09-27-2022 NotePROCEDURE: XR FOOT LT MIN 3 VIEWS COMPARISON: 03/29/2022 HISTORY: Pain [...] Electronically authenticated by: TAMIKO NETTLES Date: 2022-04-19 18:16[facility] [id number] NotePROCEDURE: XR FOOT LT MIN 3 VIEWS COMPARISON: 03/10/2022 HISTORY: Pain [...] Electronically authenticated by: TAMIKO NETTLES Date: 2022-03-30 06:41[facility] HospitalXrpoensk98-00-1797 NotePROCEDURE: XR FOOT LT MIN 3 VIEWS HISTORY: Postoperative visit COMPARISON: [...] Electronically authenticated by: ELLIOT JOSE Date: 2022-03-11 08:26[facility]08-19-2022 NotePROCEDURE: XR FOOT LT 2V HISTORY: Pain COMPARISON: XR foot left 02/09/2022 FINDINGS: BONES:Multiple intraoperative images demonstrate mechanical fusion of the second and third tarsal-metatarsal joints. SOFT TISSUES:Expected intraoperative findings. EFFUSION:None visible. OTHER: Negative. IMPRESSION: 1. Mechanical fusion of second and third tarsal-metatarsal joints. Electronically authenticated by: ELLIOT JOSE Date: 2022-03-11 07:55[facility] HospitalOmqxtdmx74-48-5107 NotePROCEDURE: XR FOOT LT MIN 3 VIEWS COMPARISON: 12/15/2020 HISTORY: Pain FINDINGS: BONES:No acute fracture or dislocation. Stable moderate degenerative changes most significant at the tarsometatarsal joints. Moderate plantar enthesopathic spurring of the calcaneus SOFT TISSUES:Negative. No visible soft tissue swelling. EFFUSION:None visible. OTHER: Negative. IMPRESSION: Stable moderate degenerative changes Electronically authenticated by: TAMIKO NETTLES Date: 2022-02-10 07:37[facility]02-07-2022 Evaluation note* Encounter Date Diagnosis Assessment Notes Treatment Notes Treatment Clinical Notes Aug, Contact with and (suspected) exposure [...] Patient care instructions given in writting by [facility] Care At Home document [id number] Other Evaluation note* Diagnosis Bipolar disorder with severe depression (CMS/HCC) documented in this encounter [facility] HealthcareEvaluation noteNo assessment information availableGalion Hospital Ctr Work Phone: Evaluation note* Diagnosis [...] gastric bypass Bipolar disorder with severe depression ([facility]/HCC) Encounter for screening mammogram for breast cancer- Primary Screening for diabetes mellitus Seizure-like activity ([facility]) Fluid level [...] deficiency anemia type documented in this encounter [facility] HealthcareEvaluation note* Diagnosis Breast screening- Primary [...] gastric bypass Bipolar disorder with severe depression ([facility]) Encounter for screening mammogram for breast cancer- Primary Screening for diabetes mellitus Seizure-like activity ([facility]) Fluid level [...] gastric bypass Bipolar disorder with severe depression ([facility]/HCC) Encounter for screening mammogram for breast cancer- Primary Screening for diabetes mellitus Seizure-like activity ([facility]) Fluid level behind tympanic membrane of [...] in full remission, most recent episode depressed ([facility]) Psychophysiological insomnia Persistent disorder of initiating or maintaining sleep B12 deficiency Fibromyalgia Unspecified myalgia and myositis Screening mammogram for breast cancer Bipolar disorder, current episode depressed, severe, without psychotic features ([facility]/HCC) Psychophysiological insomnia Persistent disorder of initiating or maintaining sleep Fibromyalgia Unspecified myalgia and myositis Iron deficiency anemia secondary to inadequate dietary iron intake B12 deficiency B12 deficiency- Primary Bipolar disorder, current episode depressed, severe, without psychotic features ([facility]/HCC) Psychophysiological insomnia Persistent disorder of initiating [...] gastric bypass Bipolar disorder with severe depression ([facility]/HCC) Encounter for screening mammogram for breast cancer- Primary Screening for diabetes mellitus Seizure-like activity ([facility]) Fluid level [...] 33.0-33.9,adult- Primary Bipolar disorder with severe depression ([facility]) Fibromyalgia Unspecified [...] in full remission, most recent episode depressed ([facility]) Psychophysiological insomnia Persistent disorder of initiating or maintaining sleep B12 deficiency Fibromyalgia Unspecified myalgia and myositis Screening mammogram for breast cancer Bipolar disorder with severe depression ([facility]/HCC)- Primary Psychophysiological insomnia Persistent disorder of initiating or maintaining sleep Fibromyalgia Unspecified myalgia and myositis Iron deficiency anemia secondary to inadequate dietary iron intake B12 deficiency Bipolar disorder, current episode depressed, severe, without psychotic features ([facility]/HCC) B12 deficiency- Primary Bipolar disorder, current episode depressed, severe, without psychotic features ([facility]/HCC) Psychophysiological insomnia Persistent disorder of initiating [...] Primary Screening for diabetes mellitus Seizure-like activity ([facility]) Fluid level [...] 33.0-33.9,adult- Primary Bipolar disorder with severe depression ([facility]) Fibromyalgia Unspecified [...] of tympanic membranes documented in this encounter [facility] HealthcareEvaluation note* Diagnosis Breast screening- Primary [...] whether esophagitis present documented [facility] encounter [facility]* [...] gastric bypass Bipolar disorder with severe depression ([facility]CC) Encounter for screening mammogram for breast cancer- Primary Screening for diabetes mellitus Seizure-like activity ([facility]) Fluid level behind tympanic membrane of [...] in full remission, most recent episode depressed ([facility]CC) Psychophysiological insomnia Persistent disorder of initiating [...] Primary Screening for diabetes mellitus Seizure-like activity ([facility]) Fluid level [...] and seasonal allergies documented in this encounter [facility] HealthcareEvaluation note* Diagnosis Breast screening- Primary Breast [...] Primary Screening for diabetes mellitus Seizure-like activity ([facility]CC) Fluid level behind tympanic membrane of [...] of tympanic membranes documented in this encounter [facility] HealthcareEvaluation note* Diagnosis Breast screening- Primary [...] gastric bypass Bipolar disorder with severe depression ([facility]) Encounter for screening mammogram for breast cancer- Primary Screening for diabetes mellitus Seizure-like activity ([facility]) Fluid level [...] BMI 32.0-32.9,adult Bipolar disorder with severe depression ([facility]) Well woman exam with [...] in full remission, most recent episode depressed ([facility]) Psychophysiological insomnia [...] of tympanic membranes documented in this encounter [facility] HealthcareEvaluation note* Diagnosis Breast screening- Primary [...] Screening for diabetes mellitus Seizure-like activity ([facility]) Fluid level behind [...] of tympanic membranes documented in this encounter [facility] HealthcareEvaluation note* Diagnosis Breast screening- Primary [...] for drug screening documented in this encounter [facility] HealthcareEvaluation note* Diagnosis Breast screening- Primary [...] of tympanic membranes documented in this encounter [facility] HealthcareEvaluation note* Diagnosis Cystocele with second degree uterine prolapse- Primary History of reconstructive repair of rectocele Urge urinary incontinence Urge incontinence Incomplete emptying of bladder Incomplete bladder emptying Atrophic vaginitis Postmenopausal atrophic vaginitis documented in this encounter [facility]* Diagnosis Breast screening- Primary [...] of spine acute March 25, 2025 8:29am [facility] Work Phone: Evaluation note* Diagnosis Breast [...] in this encounter [facility]* Diagnosis Cystocele with second degree uterine prolapse- Primary History of reconstructive repair of rectocele Urge urinary incontinence Urge incontinence [facility] Diagnosis Breast screening- Primary Breast [...] in this encounter [facility]* Diagnosis Cystocele with second degree uterine prolapse- Primary History of reconstructive repair of rectocele Urge urinary incontinence Urge incontinence documented in this encounter [facility] general Narrative - Reported* Type Description Date Medical History anxiety Medical History tribr Other Hospital course Narrative No data available for this section General Surgery [facility] Discharge instructions No data available for this section General Surgery [facility] Instructions* Attachments The following attachments cannot be sent through Care Everywhere. * Pelvic floor muscle exercises ([facility]) documented in this [facility] SystemInstructionsNot on file documented in this encounterProBarkibu SystemInstructionsNot on file documented in this encounterProBarkibu SystemInstructionsNot on file documented in this encounterProBarkibu SystemProgress note No data available for this section General Surgery [facility] Reason for referral (narrative)* Consultation (Routine) - Pending Review Specialty Diagnoses / Procedures Referred By Carlos white Referred To Contact Rheumatology Diagnoses Fibromyalgia Procedures [place] OFFICE/OUTPATIENT NEW HIGH MDM 60 MINUTES Angel Luis Groves NP [address] [place], [place] [address] [place] [address] Tyson Collazo MD [address] [facility] [place] [address] Referral ID Status Reason Start Date Expiration Date Visits Requested Visits Authorized [id number] Pending Review Specialty Services Required 03/13/2024 09/09/2024 1 1 Scheduling Instructions Please include OV note from today And labs from 07/28/2023 [facility] HealthcareReason for referral (narrative)No reason for referral [facility] Work Phone: Reason for visit Narrative* Consultation (Routine) - Closed Specialty Diagnoses / Procedures Referred By Contact Referred To Contact Urogynecology / Gynecology Diagnoses Cystocele with second degree uterine prolapse History of reconstructive repair of rectocele Urge urinary incontinence Shelia Muniz, [address] [place] [address] Phone: tel:[phone] fax:[phone] Jovon Asif MD [address] [place] [address] Phone: tel:[phone] fax:[phone] Referral ID Status Reason Start Date Expiration Date V isits Requested Visits Authorized [id number] Closed Specialty Services Required 02/06/2025 02/06/2026 1 1 [facility] Summary Purpose Family History No Family History [...] Admit Date Spinal stenosis, cervical region Septemb er 2024 8:29am Reason for Visit Admit Date Cervical stenosis of spine March 8:29am Chief Complaint Admit Date Spinal stenosis, cervical region Septemb er 2024 8:29am G56.01 April 23, 2025 8: 25am Reason for Visit Admit Date Carpal tunnel syndrome of right wrist Se [email or web address] 8:29am Cervical stenosis of spine March 8:29am Piriformis syndrome of right side Septem yandel 2024 8:29am Chief Complaint Admit Date Spinal stenosis, cervical region Septemb er 2024 8:29am G56.01 April 23, 2025 8: 25am Established Patient April 30, 2025 4: 13pm Reason for Visit Admit Date Carpal tunnel syndrome of right wrist Se [email or web address] 8:29am Cervical stenosis of spine March 8:29am Piriformis syndrome of right side Septem yandel 2024 8:29am Class 1 obesity due to exces s calories without serious comorbidity in adult April 30, 2025 4:13pm Fibromyalgia April 30, 2025 4: 13pm GERD without esophagitis April 30 4:13pm CARA (iron deficiency anemia) April 4:13pm Nicotine dependence April 30, 2025 4: 13pm Additional Source Comments INFORMATION SOURCE (unrecogn ized section and content) DATE CREATED AUTHOR 11/16/2018 [facility] DATE CREATED AUTHOR AUTHOR'S ORGANIZ ATION 06/05/2022 [facility] DATE CREATED AUTHOR AUTHOR'S ORGANIZ ATION 04/09/2023 [facility] DATE CREATED AUTHOR AUTHOR'S ORGANIZ ATION 03/20/2024 [facility] DATE CREATED AUTHOR AUTHOR'S ORGANIZ ATION 03/16/2025 [facility] DATE CREATED AUTHOR AUTHOR'S ORGANIZ ATION 2025 [facility] DATE CREATED AUTHOR AUTHOR'S ORGANIZ ATION 04/11/2025 [facility] DATE CREATED AUTHOR AUTHOR'S ORGANIZ ATION 05/04/2025 [facility] REASON FOR VISIT (unrecogniz ed [...] Bipolar disorder with severe depression (HCC) Procedures VT OFFICE/OUTPATIENT NEW HIGH MDM 60 MINUTES Pascale Arana, MARY JO [address] [place] [address] Phone: tel: fax: Eunice Dias, [facility]- [address] [facility] [address] [place] [address] Phone: tel: fax: Referral ID Status Reason Start Date Expiration Date V isits Requested Visits Authorized [id number] Closed Specialty Services Required 01/06/2025 07/05/2025 1 [...] team informatio n (unrecognized section and content) Insulator Tester Relationship Specialty Start Date End Date Shaikh Main MD PCP - General Internal Medicine 04/20/23 Team Status: Active Member Role Status Dates Conrad Ahn DO Attending Provider Active Sta rt: February 26, 2024 Team Status: Inactive Member Role Status Dates Tyson Collazo MD Attending Provider Active St art: April 18, 2024 End: April 18, 2024 Insulator Tester Relationship Specialty Start Date End Date Molina De Anda MD [address] [place] [address] PCP - General Family Medicine 02/21/24 Angel Luis Groves NP [address] [place] [address] Nurse Practitioner Family Medicine 02/21/24 Insulator Tester Relationship Specialty Start Date End Date Molina De Anda MD [address] [place] [address] PCP - General Family Medicine 02/21/24 Angel Luis Groves NP [address] [place] [address] Nurse Practitioner Family Medicine 02/21/24 Insulator Tester Relationship Specialty Start Date End Date Molina De Anda MD [address] [place] [address] PCP - General Family Medicine 02/21/24 Angel Luis Groves NP [address] [place] [address] Nurse Practitioner Family Medicine 02/21/24 Insulator Tester Relationship Specialty Start Date End Date Molina De Anda MD [address] [place] [address] PCP - General Family Medicine 02/21/24 Angel Luis Groves NP [address] [place] [address] Nurse Practitioner Family Medicine 02/21/24 Insulator Tester Relationship Specialty Start Date End Date Molina De Anda MD [address] [place] [address] PCP - General Family Medicine 02/21/24 Angel Luis Groves NP [address] [place] [address] Nurse Practitioner Family Medicine 02/21/24 Insulator Tester Relationship Specialty Start Date End Date Molina De Anda MD [address] [place] [address] PCP - General Family Medicine 02/21/24 Angel Luis Groves NP [address] [place] [address] Nurse Practitioner Family Medicine 02/21/24 Insulator Tester Relationship Specialty Start Date End Date Molina De Anda MD [address] [place] [address] PCP - General Family Medicine 02/21/24 Angel Luis Groves NP [address] [place] [address] Nurse Practitioner Family Medicine 02/21/24 Insulator Tester Relationship Specialty Start Date End Date Molina De Anda MD [address] [place] [address] PCP - General Family Medicine 02/21/24 Angel Luis Groves NP [address] [place] [address] Nurse Practitioner Family Medicine 02/21/24 Insulator Tester Relationship Specialty Start Date End Date Molina De Anda MD [address] [place] [address] PCP - General Family Medicine 02/21/24 Angel Luis Groves NP [address] [place] [address] Nurse Practitioner Family Medicine 02/21/24 Insulator Tester Relationship Specialty Start Date End Date Molina De Anda MD [address] [place] [address] PCP - General Family Medicine 02/21/24 Angel Luis Groves NP [address] [place] [address] Nurse Practitioner Family Medicine 02/21/24 Insulator Tester Relationship Specialty Start Date End Date Molina De Anda MD [address] [place] [address] PCP - General Family Medicine 02/21/24 Angel Luis Groves NP [address] [place] [address] Nurse Practitioner Family Medicine 02/21/24 Insulator Tester Relationship Specialty Start Date End Date Molina De Anda MD [address] [place] [address] PCP - General Family Medicine 02/21/24 Angel Luis Groves NP [address] [place] [address] Nurse Practitioner Family Medicine 02/21/24 Insulator Tester Relationship Specialty Start Date End Date Molina De Anda MD [address] [place] [address] PCP - General Family Medicine 02/21/24 Angel Luis Groves NP [address] [place] [address] Nurse Practitioner Family Medicine 02/21/24 Insulator Tester Relationship Specialty Start Date End Date Molina De Anda MD [address] [place] [address] PCP - General Family Medicine 02/21/24 Angel Luis Groves NP [address] [place] [address] Nurse Practitioner Family Medicine 02/21/24 Insulator Tester Relationship Specialty Start Date End Date Molina De Anda MD [address] [place] [address] PCP - General Family Medicine 02/21/24 Angel Luis Groves NP [address] [place] [address] Nurse Practitioner Family Medicine 02/21/24 Insulator Tester Relationship Specialty Start Date End Date Molina De Anda MD [address] [place] [address] PCP - General Family Medicine 02/21/24 Angel Luis Groves NP [address] [place] [address] Nurse Practitioner Family Medicine 02/21/24 Insulator Tester Relationship Specialty Start Date End Date Molina De Anda MD [address] [place] [address] PCP - General Family Medicine 02/21/24 Angel Luis Groves NP [address] [place] [address] Nurse Practitioner Family Medicine 02/21/24 Insulator Tester Relationship Specialty Start Date End Date Molina De Anda MD [address] [place] [address] PCP - General Family Medicine 02/21/24 Angel Luis Groves NP [address] [place] [address] Nurse Practitioner Family Medicine 02/21/24 Insulator Tester Relationship Specialty Start Date End Date Molina De Anda MD [address] [place] [address] PCP - General Family Medicine 02/21/24 Angel Luis Groves NP [address] [place] [address] Nurse Practitioner Family Medicine 02/21/24 Insulator Tester Relationship Specialty Start Date End Date Molina De Anda MD [address] [place] [address] PCP - General Family Medicine 02/21/24 Angel Luis Groves NP [address] [place] [address] Nurse Practitioner Family Medicine 02/21/24 Insulator Tester Relationship Specialty Start Date End Date Molina De Anda MD [address] [place] [address] PCP - General Family Medicine 02/21/24 Angel Luis Groves NP [address] [place] [address] Nurse Practitioner Family Medicine 02/21/24 Insulator Tester Relationship Specialty Start Date End Date Molina De Anda MD [address] [place] [address] PCP - General Family Medicine 02/21/24 Angel Luis Groves NP [address] [place] [address] Nurse Practitioner Family Medicine 02/21/24 Insulator Tester Relationship Specialty Start Date End Date Molina De Anda MD [address] [place] [address] PCP - General Family Medicine 02/21/24 Angel Luis Groves NP [address] [place] [address] Nurse Practitioner Family Medicine 02/21/24 Insulator Tester Relationship Specialty Start Date End Date Molina De Anda MD [address] [place] [address] PCP - General Family Medicine 02/21/24 Angel Luis Groves NP [address] [place] [address] Nurse Practitioner Family Medicine 02/21/24 Insulator Tester Relationship Specialty Start Date End Date Molina De Anda MD [address] [place] [address] PCP - General Family Medicine 02/21/24 Angel Luis Groves NP [address] [place] [address] Nurse Practitioner Family Medicine 02/21/24 Insulator Tester Relationship Specialty Start Date End Date Molina De Anda MD [address] [place] [address] PCP - General Family Medicine 02/21/24 Angel Luis Groves NP [address] [place] [address] Nurse Practitioner Family Medicine 02/21/24 Insulator Tester Relationship Specialty Start Date End Date Molina De Anda MD [address] [place] [address] PCP - General Family Medicine 02/21/24 Angel Luis Groves NP [address] [place] [address] Nurse Practitioner Family Medicine 02/21/24 Insulator Tester Relationship Specialty Start Date End Date Molina De Anda MD [address] [place] [address] PCP - General Family Medicine 02/21/24 Angel Luis Groves NP [address] [place] [address] Nurse Practitioner Family Medicine 02/21/24 Insulator Tester Relationship Specialty Start Date End Date Molina De Anda MD [address] [place] [address] PCP - General Family Medicine 02/21/24 Angel Luis Groves NP [address] [place] [address] Nurse Practitioner Family Medicine 02/21/24 Insulator Tester Relationship Specialty Start Date End Date Molina De Anda MD [address] [place] [address] PCP - General Family Medicine 02/21/24 Angel Luis Groves NP [address] [place] [address] Nurse Practitioner Family Medicine 02/21/24 Insulator Tester Relationship Specialty Start Date End Date Molina De Anda MD [address] [place] [address] PCP - General Family Medicine 02/21/24 Angel Luis Groves NP [address] [place] [address] Nurse Practitioner Family Medicine 02/21/24 Insulator Tester Relationship Specialty Start Date End Date Molina De Anda MD [address] [place] [address] PCP - General Family Medicine 02/21/24 Angel Luis Groves NP [address] [place] [address] Nurse Practitioner Family Medicine 02/21/24 Insulator Tester Relationship Specialty Start Date End Date Molina De Anda MD [address] [place] [address] PCP - General Family Medicine 02/21/24 Angel Luis Groves NP [address] [place] [address] Nurse Practitioner Family Medicine 02/21/24 Insulator Tester Relationship Specialty Start Date End Date Molina De Anda MD [address] [place] [address] PCP - General Family Medicine 02/21/24 Angel Luis Groves NP [address] [place] [address] Nurse Practitioner Family Medicine 02/21/24 Insulator Tester Relationship Specialty Start Date End Date Molina De Anda MD [address] [place] [address] PCP - General Family Medicine 02/21/24 Angel Luis Groves NP [address] [place] [address] Nurse Practitioner Family Medicine 02/21/24 Insulator Tester Relationship Specialty Start Date End Date Molina De Anda MD [address] [place] [address] PCP - General Family Medicine 02/21/24 Angel Luis Groves NP [address] [place] [address] Nurse Practitioner Family Medicine 02/21/24 Insulator Tester Relationship Specialty Start Date End Date Molina De Anda MD [address] [place] [address] PCP - General Family Medicine 02/21/24 Angel Luis Groves NP [address] [place] [address] Nurse Practitioner Family Medicine 02/21/24 Insulator Tester Relationship Specialty Start Date End Date Molina De Anda MD [address] [place] [address] PCP - General Family Medicine 02/21/24 Angel Luis Groves NP [address] [place] [address] Nurse Practitioner Family Medicine 02/21/24 Insulator Tester Relationship Specialty Start Date End Date Molina De Anda MD [address] [place] [address] PCP - General Family Medicine 02/21/24 Angel Luis Groves NP [address] [place] [address] Nurse Practitioner Family Medicine 02/21/24 Insulator Tester Relationship Specialty Start Date End Date Molina De Anda MD [address] [place] [address] PCP - General Family Medicine 02/21/24 Angel Luis Groves NP [address] [place] [address] Nurse Practitioner Family Medicine 02/21/24 [facility] [address] [facility] [place] [address] Nurse Practitioner Behavioral Health 01/22/25 Insulator Tester Relationship Specialty Start Date End Date Molina eD Anda MD [address] [place] [address] PCP - General Family Medicine 02/21/24 Angel Luis Groves NP [address] [place] [address] Nurse Practitioner Family Medicine 02/21/24 [facility] [address] [facility] [place] [address] Nurse Practitioner Behavioral Health 01/22/25 Insulator Tester Relationship Specialty Start Date End Date Molina De Anda MD [address] [place] [address] PCP - General Family Medicine 02/21/24 Angel Luis Groves NP [address] [place] [address] Nurse Practitioner Family Medicine 02/21/24 Eunice Dias [facility] [address] [facility] [address] [place] [address] Nurse Practitioner Behavioral Health 01/22/25 Insulator Tester Relationship Specialty Start Date End Date No Pcp, [place] [address] PCP - General Family Medicine 11/21/18 Insulator Tester Relationship Specialty Start Date End Date Molina De Anda MD [address] [place] [address] PCP - General Family Medicine 02/21/24 Ange lLuis Groves, MARY JO [address] [place] [address] Nurse Practitioner Family Medicine 02/21/24 Eunice Dias [facility] [address] [facility] [place] [address] Nurse Practitioner Behavioral Health 01/22/25 Insulator Tester Relationship Specialty Start Date End Date Molina De Anda MD [address] [place] [address] PCP - General Family Medicine 02/21/24 Angel Luis Groves, [employer] [address] [place] [address] Nurse Practitioner Family Medicine 02/21/24 Eunice Dias [facility] [address] [facility] [place] [address] Nurse Practitioner Behavioral Health 01/22/25 Insulator Tester Relationship Specialty Start Date End Date Molina De Anda MD [address] [place] [address] PCP - General Family Medicine 02/21/24 Angel Luis Groves NP [address] [place] [address] Nurse Practitioner Family Medicine 02/21/24 E[facility]ice Dias [facility] [facility] [address] [facility] [address] [place] [address] Nurse Practitioner Behavioral Health 01/22/25 Insulator Tester Relationship Specialty Start Date End Date Molina De Anda MD [address] [place] [address] PCP - General Family Medicine 02/21/24 Angel Luis Groves NP [address] [place] [address] Nurse Practitioner Family Medicine 02/21/24 Eunice Dias [facility] [address] [facility] [address] [place] [address] Nurse Practitioner Behavioral Health 01/22/25 Insulator Tester Relationship Specialty Start Date End Date Molina De Anda MD [address] [place] [address] PCP - General Family Medicine 02/21/24 Angel Luis Groves NP [address] [place] [address] Nurse Practitioner Family Medicine 02/21/24 Eunice Dias [facility] [address] [facility] [address] [place] [address] Nurse Practitioner Behavioral Health 01/22/25 Insulator Tester Relationship Specialty Start Date End Date No Pcp, [place] [address] PCP - General Family Medicine 11/21/18 Insulator Tester Relationship Specialty Start Date End Date Molina De Anda MD [address] [place] [address] PCP - General Family Medicine 02/21/24 Angel Luis Groves NP [address] [place] [address] Nurse Practitioner Family Medicine 02/21/24 Eunice Dias [facility] [address] [address] [place] [address] Nurse Practitioner Behavioral Health 01/22/25 Insulator Tester Relationship Specialty Start Date End Date Molina De Anda MD [address] [place] [address] PCP - General Family Medicine 02/21/24 Angel Luis Groves NP [address] [place] [address] Nurse Practitioner Family Medicine 02/21/24 Eunice Dias [facility] [address] [address] [place] [address] Nurse Practitioner Behavioral Health 01/22/25 Insulator Tester Relationship Specialty Start Date End Date Molina De Anda MD [address] [place] [address] PCP - General Family Medicine 02/21/24 Angel Luis Groves NP [address] [place] [address] Nurse Practitioner Family Medicine 02/21/24 [facility] [address] [address] [place] [phone] Nurse Practitioner Behavioral Health 01/22/25 Insulator Tester Relationship Specialty Start Date End Date Molina De Anda MD [address] [place] [address] PCP - General Family Medicine 02/21/24 Angel Luis Groves NP [address] [place], [place] [phone] Nurse Practitioner Family Medicine 02/21/24 [facility] 112 [facility] [address] [place] [phone] Nurse Practitioner Behavioral Health 01/22/25 Rohan Waters LPC Director Of Accreditation Behavioral Health 03/06/25 Team Status: Active Member Role Status Dates Pascale Arana Primary Care Provider Active Team Status: Inactive Member Role Status Dates Shun Arshad MD Attending Provider Active Star t: March 25, 2025 End: March 25, 2025 Pascale Arana Primary Care Provider Active Sta rt: March 25, 2025 End: March 25, 2025 Insulator Tester Relationship Specialty Start Date End Date Molina De Anda MD PCP - General Family Medicine 02/21/24 Angel Luis Groves NP Nurse Practitioner Family Medicine 02/21/24 [facility] [address] [facility] [address] [place] [address] Nurse Practitioner Behavioral Health 01/22/25 Rohan Waters LPC Director Of Accreditation Behavioral Health 03/06/25 Insulator Tester Relationship Specialty Start Date End Date Molina De Anda MD PCP - General Family Medicine 02/21/24 Angel Luis Groves NP Nurse Practitioner Family Medicine 02/21/24 [facility] [address] [facility] [address] [place] [address] Nurse Practitioner Behavioral Health 01/22/25 Rohan Waters LPC Director Of Accreditation Behavioral Health 03/06/25 Insulator Tester Relationship Specialty Start Date End Date Molina De Anda MD PCP - General Family Medicine 02/21/24 Angel Luis Groves, CONTRACTOR GENERAL BUILDING Nurse Practitioner Family Medicine 02/21/24 [facility] [address] [facility] [address] [place] [address] Nurse Practitioner Behavioral Health 01/22/25 Rohan Waters LPC Director Of Accreditation Behavioral Health 03/06/25 Insulator Tester Relationship Specialty Start Date End Date Pascale Arana, ENGINE ROOM OPERATOR-CIGARETTE MACHINES [place] [address] PCP - General Nurse Practitioner 04/02/25 Insulator Tester Relationship Specialty Start Date End Date Molina De Anda MD PCP - General Family Medicine 02/21/24 Angel Luis Groves NP Nurse Practitioner Family Medicine 02/21/24 Eunice Dias [facility] [address] [facility] [address] [place] [address] Nurse Practitioner Behavioral Health 01/22/25 Rohan Waters LPC Director Of Accreditation Behavioral Health 03/06/25 Insulator Tester Relationship Specialty Start Date End Date Molina De Anda MD PCP - General Family Medicine 02/21/24 Angel Luis Groves NP Nurse Practitioner Family Medicine 02/21/24 Eunice Dias [facility] [address] [facility] [address] [place] [address] Nurse Practitioner Behavioral Health 01/22/25 Rohan Waters LPC Director Of Accreditation Behavioral Health 03/06/25 Team Status: Active Member Role Status Dates JAVIER Malik Primary Care Provider Active Team Status: Inactive Member Role Status Dates Shun Arshad MD Attending Provider Active Star t: March 25, 2025 End: March 25, 2025 JVAIER Malik Primary Care Provider Active Start: March 25, 2025 End: March 25, 2025 Team Status: Inactive Member Role Status Dates JAVIER Malik Primary Care Provider Active Start: April 23, 2025 End: April 23, 2025 Shun Arshad MD Attending Provider Active Star t: April 23, 2025 End: April 23, 2025 Team Status: Active Member Role Status Dates JAVIER Malik Primary Care Provider Active Start: April 23, 2025 Shun Arshad MD Other Provider Active Start: O ct2024 Loc Aguayo MD Attending Provider Active Start: April 23, 2025 Team Status: Inactive Member Role Status Dates JAVIER Malik Primary Care Provider Active Start: April 30, 2025 End: April 30, 2025 JAVIER Malik Attending Provider Active Start: April 30, 2025 End: April 30, 2025 Insulator Tester Relationship Specialty Start Date End Date Pascale Arana APRN-JASON [address] [place] [address] PCP - General Nurse Practitioner 04/02/25 Goals (unrecognized section and content) Goals may [...] BE BASED ON THE PRIMARY CLINICAL RECORDS. [employer] provides no warranty or guarantee of the accuracy or completeness of information in this document.
--- OUTSIDE RECORDS SUMMARY | 2025-05-05 07:27 | XMS_ITS | Encounter Summary ---
Author Organization [facility] Address [address] [place] [address] Care Team Providers Care Department Of Sociology Chair Name Role Phone Molina De Anda MD Primary Care Provider [phone] Valerie Groves FIELD SCOUT Unavailable [phone] Karime Dias PMHNP- Unavailable [phone] [facility] Unavailable Unavailable Encounter Details Date Type Department Care Team (Late st Contact Info) Description 02/29/2024 Orders Only [facility] [address] [place] [address] Valerie Groves NP Social History Tobacco Use [...] How often do you attend chur or presybeterian services? Never 08/07/2023 Do you belong to [...] Recorded Patient Health Questionnaire-2 Score 0 02/28/2024 [facility] - Occupational Stress Questionnaire Answer Date [...] [facility] [address] [facility] [address] [place] [address] Rohan Burns LPC 06/02/2025 3:00 PM EST Office Visit [facility] [address] [place] [address] [place] [address] Macarena Chang, ADJUNCT ENGLISH INSTRUCTOR-AIRCRAFT CLEANING SUPERVISOR [address] [facility] 160 [place] [address] documented as of this encounter Goals Goal [...] Laterality Modality Radiographic Maeve ging Valerie Groves FIELD SCOUT IMG XR PROCEDURES Final Result documented in this encounter Visit Diagnoses Not on filedocumented in this encounter Additional Health Concerns Active Problems Noted Date Diagnosed Date Patient on antidepressant monitoring plan 2023 Assessment Noted Time PHQ-9 Depression Total Score: 23 024 4:27 PM EST documented as of this encounter Care Teams Department Of Sociology Chair Relationship Specialty Start Date End Date Molina De Anda MD PCP - General Family Medicine 02/21/24 Valerie Groves NP Nurse Practitioner Family Medicine 02/21/24 [facility] [address] [address] Nurse Practitioner Behavioral Health 01/22/25 Rohan Burns LPC Recyclable Materials Collector Behavioral Health 03/06/25 documented as of this encounter
--- OUTSIDE RECORDS SUMMARY | 2025-05-05 07:27 | XMS_ITS | Encounter Summary ---
Author Organization [facility] Address [address] [place] [address] Care Team Providers Care Junior Business Analyst Name Role Phone Molina De Anda MD Primary Care Provider [phone] Valerie Groves SCREEN PRINTING MACHINE OPERATOR Unavailable [phone] Karime Dias PMHNP- Unavailable [phone] Rohan Burns INDUSTRIAL SAFETY AND HEALTH SPECIALIST Unavailable Unavailable Encounter Details Date Type Department Care Team (Late st Contact Info) Description 11/14/2024 [facility] Only [facility] [place] [facility] [address] [facility] [place] [address] Pascale Arana NP [address] [place] [address] UTI (urinary tract infection), uncomplicated (Primary Dx) [...] r organizations such as mandaen groups, unions, fraYeehoo Group or athletic groups, or school groups? No [...] Patient Health Questionnaire-2 Score 0 04/10/2024 [facility] of Occupat ional Health - Occupational [...] Work [facility] 112 [facility] 160 [place] [address] Rohan Burns LPC 06/02/2025 3:00 PM EST Office Visit [facility] [place] [facility] 112 [facility] 160 [place] [address] Macarena Chang, CONFERENCE SPECIALIST-WHEAT BUYER 112 [facility] 160 [place] [address] Scheduled Orders Name Type Priority Associated Diagnoses [...] documented as of this encounter Care Teams Junior Business Analyst Relationship Specialty Start Date End Date Molina De Anda MD PCP - General Family Medicine 02/21/24 Valerie Groves NP Nurse Practitioner Family Medicine 02/21/24 [facility] [address] [place] [phone] Nurse Practitioner Behavioral Health 01/22/25 Rohan Burns LPC Medical Sales Specialist Behavioral Health 03/06/25 documented as of this encounter
--- OUTSIDE RECORDS SUMMARY | 2025-05-05 07:27 | XMS_ITS | Encounter Summary ---
Author Organization [facility] Address [address] [place] [address] Care Team Providers Care Hi Lift Operator Name Role Phone Shaikh NITHIN Main Primary Care Provider [phone] Shaikh NITHIN Main Primary Care Provider [phone] Molina De Anda MD Primary Care Provider [phone] Valerie Groves SUPERVISORY AIR INTERCEPT CONTROLLER Unavailable [phone] Karime Dias PMHNP-BC Unavailable Rohan Burns [facility] Unavailable Unavailable Encounter Details Date Type Department Care Team (Late st Contact Info) Description 11/20/2023 Orders Only [facility] [address] [place] [address] Shaikh Main MD [address] [place] [address] Social History Tobacco Use Types Packs/Day Years [...] Recorded Patient Health Questionnaire-2 Score 0 11/13/2023 [facility] of Occupat ional Health - Occupational Stress [...] [facility] [address] [facility] [address] [place] [address] Rohan Burns LPC 06/02/2025 3:00 PM EST Office Visit [facility] [place] [facility] [address] [facility] [address] [place] [address] Macarena Chang, BOARD FINISHER-TESTING LEAD [address] [facility] [address] [place] [address] documented as of this encounter Goals Goal [...] documented as of this encounter Care Teams Hi Lift Operator Relationship Specialty Start Date End Date Shaikh Main MD PCP - General Internal Medicine 04/20/23 01/07/24 Shaikh Main MD PCP - General Internal Medicine 01/08/24 02/20/24 Molina De Anda MD PCP - General Family Medicine 02/21/24 Valerie Groves NP Nurse Practitioner Family Medicine 02/21/24 Karime Dias [facility] [address] [address] Nurse Practitioner Behavioral Health 01/22/25 Rohan Burns LPC Nuclear Physics Professor Behavioral Health 03/06/25 documented as of this encounter
--- OUTSIDE RECORDS SUMMARY | 2025-05-05 07:27 | XMS_ITS | Encounter Summary ---
Author Organization [facility] Address [address] [place] [address] Care Team Providers Care Poolroom Table Attendant Name Role Phone Molina De Anda MD Primary Care Provider [phone] Valerie Groves COMMISSARY WORKER Unavailable [phone] Karime Dias PMHNP-BC Unavailable [phone] [facility] Unavailable Unavailable Reason for Visit * Reason Onset Date Comments Med Refill 11/18/2024 Encounter Details Date Type Department Care Team (Late st Contact Info) Description 11/18/2024 [facility] [place] [facility] [address] [place] [address] Molina De Anda MD [address] [place] [address] Plantar fasciitis of right foot (Primary Dx) [...] Recorded Patient Health Questionnaire-2 Score 0 04/10/2024 [facility] [place] of Occupat ional Health - Occupational Stress [...] WAY [facility] 160 [place] [address] Rohan Burns LPC 06/02/2025 3:00 PM EST Office Visit [facility] [address] [facility] 160 [place] [address] Macarena Chang, TYPE PROOF REPRODUCER-CLINICAL LABORATORY MEDICAL DIRECTOR [address] [facility] 160 [place] [address] documented as of this encounter Goals Goal [...] documented as of this encounter Care Teams Poolroom Table Attendant Relationship Specialty Start Date End Date Molina De Anda MD PCP - General Family Medicine 02/21/24 Valerie Groves NP Nurse Practitioner Family Medicine 02/21/24 [facility] [address] [phone] Nurse Practitioner Behavioral Health 01/22/25 Rohan Burns LPC Masonry Inspector Behavioral Health 03/06/25 documented as of this encounter
--- OUTSIDE RECORDS SUMMARY | 2025-05-05 07:27 | XMS_ITS | Encounter Summary ---
Author Organization [facility] Address [address] [place] [address] Care Team Providers Care Nurse Tech Name Role Phone Molina De Anda MD Primary Care Provider [phone] Valerie Groves [facility] TRA[facility] CONTROLLER [facility]ENTER Unavailable [phone] Karime Dias PMHNP-BC Unavailable [phone] Rohan Burns [facility] Unavailable Unavailable Encounter Details Date Type Department Care Team (Late st Contact Info) Description 03/10/2025 Results Follow-Up [facility] [place] [facility] [address] [facility] [place] [address] Natacha Lyn MA ALL CBC WITH AUTO DIFF, HMHP IRON Social History Tobacco Use Types Packs/Day Years [...] week 08/07/2023 [facility] attend [facility] or [facility] services? Never 08/07/2023 Do you [...] Recorded Patient Health Questionnaire-2 Score 5 01/22/2025 [facility] - Occupational Stress Questionnaire Answer [...] WAY [facility] [address] [place] [address] Rohan Burns LPC 06/02/2025 3:00 PM EST Office Visit [facility] [address] [facility] 160 [place] [address] Macarena Chang, COMMUNITY CHEST OFFICER-FINGER BUFFS ASSEMBLER [address] [facility] 160 [place] [address] documented as of this encounter Goals Goal [...] as of this encounter Care Teams Nurse Tech Relationship Specialty Start Date End Date Molina De Anda MD PCP - General Family Medicine 02/21/24 Valerie Groves NP Nurse Practitioner Family Medicine 02/21/24 Karime Dias, [facility] [address] [address] Nurse Practitioner Behavioral Health 01/22/25 Rohan Burns LPC Harvest Worker Field Crop Behavioral Health 03/06/25 documented as of this encounter
--- OUTSIDE RECORDS SUMMARY | 2025-05-05 07:27 | XMS_ITS | Encounter Summary ---
Author Organization [employer] Address [id number] [address] [place] [address] Care Team Providers Care Director Of Compliance Name Role Phone Pascale Arana [employer] SUPERVISOR-MILLER HEAD Primary Care Provider Encounter Details Date Type Department Care Team (Late st Contact Info) Description 05/02/2025 Telephone [facility] - Urogynecology [address] [place] [address] Areli Gudino CMA Social History Tobacco Use Types Packs/Day Years [...] encounter Miscellaneous Notes * Telephone Encounter - Areli Gudino CMA - 05/02/2025 1:01 PM EDT Patient called to say she is on Tolterodine for her OAB but is having worse incontinence. She has UDS scheduled in May but her PCP wants to see if she can be put on something else as the currentmed is the highest dose. Please advise. * Telephone Encounter - Tania Asif MD - 05/02/2025 1:01 PM EDT Myrbetriq 50 milligrams once daily, dispense 30 tablets, 5 refills. * Telephone Encounter - Areli Gudino CMA - 05/02/2025 1:01 PM EDT Called patient and sent in Myrbetriq to their preferred pharmacy. documented in this encounter Plan of Treatment Upcoming Encounters Date Type Department Care Team (Late st Contact Info) Description 05/28/2025 2:30 PM EST Procedure visit [facility] - Urogyn [address] [facility] [address] [place] [address] [place] [address] Tania Asif MD [address] [facility] [address] [place] [address] documented as of this encounter Visit Diagnoses Diagnosis Cystocele with second degree uterine prolapse- Primary History of reconstructive repair of rectocele Urge urinary incontinence Urge incontinence documented in this encounter Care Teams Director Of Compliance Relationship Specialty Start Date End Date Pascale Arana, [employer] SUPERVISOR-MILLER HEAD [address] [place] [address] PCP - General Nurse Practitioner 04/02/25 documented as of this encounter
[2025-05-05 07:45] VITALS: BP 106/66; PULSE 74; TEMP 36.2; O2SAT 98
[2025-05-05 08:27] VITALS: BP 118/58; PULSE 77; O2SAT 97
[2025-05-05 08:28] VITALS: PULSE 68; O2SAT 98
[2025-05-05] MEDS: BUPIVACAINE HCL 0.25% PF 25 MG/10 ML VIAL 2 ML INJ (08:29)
[2025-05-05] MEDS: 0.9 % SODIUM CHLORIDE 10 ML SYRINGE - SALINE FLUSH 2 ML INJ (08:29)
[2025-05-05] MEDS: METHYLPREDNISOLONE ACETATE 80 MG/ML VIAL INJ (08:30)
[2025-05-05] MEDS: IOHEXOL 240 MG/ML - 50 ML VIAL 24 MG INJ (08:30)
[2025-05-05] MEDS: LIDOCAINE HCL 2% PF 100 MG/5 ML VIAL 4 ML INJ (08:30)
--- NOTE | 2025-05-05 08:30 | W.PM.PROCNOT ---
Date of procedure: 05/05/25 Pre-op diagnosis: Piriformis syndrome, right Post-op diagnosis: same as pre-op Procedure: Procedure: Right piriformis injection Medications: Bupivacaine 0.25% 4cc, depomedrol 40mg The patient was seen and examined in the preoperative holding area.? The site was marked.? Informed consent was obtained and placed on the chart.? The patient was brought to the medical procedures unit and placed in the prone position when a timeout was completed verifying correct patient, procedure, site, positioning, and planned special equipment.? The area overlying the femoral neck of the right side was prepped and draped using aseptic equipment.? A 22-gauge, 6-inch Stimuplex needle was advanced through a skin wheal of 2% lidocaine, emitting 2 mA of current at 2 Hz.? The needle tip was advanced under fluoroscopic visualization until plantarflexion was achieved at which point Omnipaque dye was injected.? This showed adequate spread.? There was no evidence of neurovascular uptake.? The above-mentioned injectate was placed in two 2.5 mL aliquots preceded by negative aspiration without sequelae.? The needle was removed.? The insertion site was covered.? The patient was taken to the postprocedural recovery area where the patient was monitored for the appropriate length of time before being found suitable for discharge in the accompaniment of a responsible adult. Anesthesia: Local Surgeon: Bandar [place] Pathology: none sent Condition: stable Disposition: no change
[2025-05-05 08:31] VITALS: BP 127/65
== END 2025-05-05 08:34 | disposition home or self-care (01) ==
PROVIDERS: PCP Nurse Practitioner; Visit Provider Anesthesiology
DX: G57.01 Lesion of sciatic nerve, right lower limb (principal); E66.811 Obesity, class 1; E66.09 Other obesity due to excess calories; M79.7 Fibromyalgia; K21.9 Gastro-esophageal reflux disease without esophagitis; D50.9 Iron deficiency anemia, unspecified; F17.200 Nicotine dependence, unspecified, uncomplicated; Z98.84 Bariatric surgery status
CPT/HCPCS: 20552; 36415; 77002; 80053; 80061; 81001; 82306; 82607; 82728; 83540; 83550; 84466; 85025; J0665; J1010; Q9966

== ENCOUNTER 2025-05-05 07:29 | Outpatient (OUT) | payer OTHER, SELFPAY ==
--- OUTSIDE RECORDS SUMMARY | 2024-09-03 11:30 | XMS_ITS ---
Author Organization The [facility] in [place] Address [address] [place] [address] Care Team Providers Care Rfid Developer Name Role Phone None, Unknown or Primary Care Provider Unavailab Mathew Lee Unavailable [phone] REASON FOR VISIT Left foot, surgical discussion about removal of hardware Encounters Encounter Location Date Provider Diagnosis [facility] (PODIATRY) [address] [place] [address] [place] [address] 09/03/2024 Mathew Hoff Left foot pain M79.672 Assessments Encounter Date Diagnosis (ICD Code) Assessment Notes Treatment Notes Treatment Clinical Notes Section Notes 09/03/2024 Left foot pain (ICD-10 - M79.672) Plan Of Treatment Pending Test Test Name Order Date XR Foot LT (3 views) * 09/03/2024 Progress Notes * Talia MERCADODOB:[birth year] (55 yo F)Acc No.[id number]:09/03/2024 UNLOCKED PROGRESS NOTE Follow Up Patient: Talia FREED Provider: Miguel Hoff DPM, MS :1970 A ge:54 Y S ex:Female Date:09/03/2024 Address:[address] [place] [address] JOSE CARLOS [place], [id number] Pcp:Unknown or None Subjective: * Chief Complaints: * 1 . Left foot, surgical discussion about removal of hardware. * Medical History: Objective: * Vitals: Assessment: * Assessment: 1. L eft foot pain - M79.672 Plan: * Treatment: * * Electronic signature of Benson Hoff DPM on 05/06/2025 at 01:38 PM EDT Sign off status: Pending Visit Status: N /S N/C (No Show/No Charge) * Provider: Miguel Hoff DPM, MS Date: 0 09/03/2024 Generated for Taina Lawrence/Sandra on: 1 01:38 PM EDT
[2025-05-05 09:01] LABS: Hematocrit 40.7 % (36.0-48.0); Hemoglobin 13.6 g/dL (12.0-16.0); Immature Granulocytes Abs Auto 0.01 10^3/uL (0.00-0.03); Immature Granulocytes Pct Auto 0.1 % (0.0-0.5); Lymphocytes Absolute Auto 2.7 10^3/uL (1.2-3.8); Mean Corpuscular HGB Conc 33.4 g/dL (29.9-35.2); Mean Corpuscular Hemoglobin 32.2 pg (26.7-34.0); Mean Corpuscular Volume 96.4 fL (81.0-99.0); Platelet Count 252 10^3/uL (150-450); Red Blood Count 4.22 10^6/uL (4.20-5.40); White Blood Count 7.0 10^3/uL (4.0-11.0)
[2025-05-05 09:01] LABS: Glucose Urine UA NEGATIVE (NEGATIVE)
[2025-05-05 09:10] LABS: Cast Seen? NONE SEEN #/LPF (NONE SEEN); Crystals Seen? None Seen #/HPF (None Seen)
[2025-05-05 09:19] LABS: Alanine Aminotransferase 25 U/L (14-59); Albumin Globulin Ratio 1.2; Albumin Level 3.6 g/dL (3.4-5.0); Alkaline Phosphatase 95 U/L (46-116); Anion Gap 13.1; Aspartate Amino Transferase 23 U/L (15-37); Blood Urea Nitrogen 16.0 mg/dL (7.0-18.0); Calcium 8.7 mg/dL (8.5-10.1); Carbon Dioxide 29.9 mmol/L (21.0-32.0); Chloride 105 mmol/L (98-107); Cholesterol 116 mg/dL (<=200); Estimated GFR (African America >60 (>=60 mL/min/1.73m^2); Estimated GFR (Non-African Ame >60 (>=60 mL/min/1.73m^2); Globulin 3.0 g/dL; Glucose 77 mg/dL (74-106); HDL Cholesterol 51 mg/dL (40-60); Potassium 4.0 mmol/L (3.5-5.1); Sodium 144 mmol/L (136-145); Total Protein 6.6 g/dL (6.4-8.2); Triglycerides 64 mg/dL (<=150); VLDL CHOLESTEROL 12.8 mg/dL
[2025-05-05 10:33] LABS: Ferritin 30.0 ng/mL (8.0-252.0)
[2025-05-05 10:58] LABS: Iron 83.0 ug/dL (50.0-170.0); Percent Iron Saturation 27.4 %; Total Iron Binding Capacity 303.0 ug/dL (250.0-450.0)
[2025-05-06 04:07] LABS: Transferrin 251 mg/dL (192-364); Vitamin B12 >2000 pg/mL (232-1245)
--- OUTSIDE RECORDS SUMMARY | 2025-05-06 13:37 | XMS_ITS | Encounter Summary ---
Author Organization [facility] Address [address] [place] [address] Care Team Providers Care Bacteriologist Pharmaceutical Name Role Phone Molina De Anda MD Primary Care Provider [phone] Valerie Groves TELEPHONE SERVICE REPRESENTATIVE Unavailable [phone] Karime Dias PMHNP- Unavailable [phone] Rohan Burns LPC Unavailable Unavailable Encounter Details Date Type Department Care Team (Late st Contact Info) Description 01/06/2025 Abstract [facility] [address] [place] [address] Pascale Arana NP [address] [place] [address] Social History Tobacco Use Types Packs/Day Years [...] Recorded Patient Health Questionnaire-2 Score 0 04/10/2024 [facility] [...] [facility] [address] [facility] [address] [place] [address] Rohan Burns LPC 06/02/2025 3:00 PM EST Office Visit [facility] [address] [facility] [address] [place] [address] Macarena Chang, FORENSIC ARTIST-TRANSMISSIONS SYSTEMS OPERATOR [address] [facility] [address] [place] [address] documented as of this encounter Goals Goal [...] documented as of this encounter Care Teams Bacteriologist Pharmaceutical Relationship Specialty Start Date End Date Molina De Anda MD PCP - General Family Medicine 02/21/24 Valerie Groves NP Nurse Practitioner Family Medicine 02/21/24 Karime Dias PMHNFORMERLY [facility] [address] [place] [address] Nurse Practitioner Behavioral Health 01/22/25 Rohan Burns LPC Territory Account [facility] 03/06/25 documented as of this encounter
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
--- OUTSIDE RECORDS SUMMARY | 2025-05-06 13:37 | XMS_ITS | Encounter Summary ---
Author Organization [facility] Address [address] [place] [address] Care Team Providers Care Field Logistics Coordinator Name Role Phone Molina De Anda MD Primary Care Provider [phone] Valerie Groves HUB BORER Unavailable [phone] Karime Dias PMHNP- Unavailable [phone] Rohan Burns LPC Unavailable Unavailable Encounter Details Date Type Department Care Team (Late st Contact Info) Description 02/25/2025 Abstract [facility] [address] [place] [place] [address] Pascale Arana NP [address] [place] [address] Social History Tobacco Use Types Packs/Day Years [...] Recorded Patient Health Questionnaire-2 Score 5 01/22/2025 [facility] [place] of Occupat ional Health - Occupational [...] WAY [facility] [address] [place] [address] Rohan Burns LPC 06/02/2025 3:00 PM EST Office Visit [facility] [address] [facility] [address] [place] [address] Macarena Chang APRN-SPINNER HYDRAULIC [address] [facility] [address] [place] [address] documented as of this encounter Goals Goal [...] as of this encounter Care Teams Field Logistics Coordinator Relationship Specialty Start Date End Date Molina De Anda MD PCP - General Family Medicine 02/21/24 Valerie Groves NP Nurse Practitioner Family Medicine 02/21/24 [facility] [address] [address] Nurse Practitioner Behavioral Health 01/22/25 Rohan Burns LPC Container Filler Behavioral Health 03/06/25 documented as of this encounter
--- OUTSIDE RECORDS SUMMARY | 2025-05-06 13:37 | XMS_ITS | Encounter Summary ---
Author Organization [facility] Address [address] [place] [address] Care Team Providers Care Home Visit Field Care Manager Name Role Phone Molina De Anda MD Primary Care Provider [phone] Valerie Groves INK TECHNICIAN Unavailable [phone] Karime Dias PMHNP- Unavailable [phone] Rohan Burns LPC Unavailable Unavailable Encounter Details Date Type Department Care Team (Late st Contact Info) Description 02/18/2025 Abstract [facility] [place] [facility]ash [facility] [address] [place] [address] Pascale Arana NP [address] [place] [place] [address] Social History Tobacco Use Types Packs/Day Years [...] How often do you attend chur or buddhist services? Never 08/07/2023 Do you belong to [...] Recorded Patient Health Questionnaire-2 Score 5 01/22/2025 [facility] of Occupat ional Health - Occupational Stress [...] [address] [facility] [address] [place] [address] Rohan Burns LPC 06/02/2025 3:00 PM EST Office Visit [facility] [address] [facility] [address] [place] [address] Macarena Chang APRN-ANATOMIC PATHOLOGY MANAGER [address] [facility] [address] [place] [address] documented as of this encounter Goals Goal [...] documented as of this encounter Care Teams Home Visit Field Care Manager Relationship Specialty Start Date End Date Molina De Anda MD PCP - General Family Medicine 02/21/24 Valerie Groves NP Nurse Practitioner Family Medicine 02/21/24 [facility] [address] [address] Nurse Practitioner Behavioral Health 01/22/25 Rohan Burns LPC Landscaper Helper Behavioral Health 03/06/25 documented as of this encounter
--- OUTSIDE RECORDS SUMMARY | 2025-05-06 13:37 | XMS_ITS | Clinical Summary ---
Author Organization [facility] Address [address] [place] [address] Care Team Providers Care Auto Overhauler Name Role Phone Shaikh NITHIN Main Primary Care Provider [phone] Allergies Active Allergy Reactions Criticality Noted Date [...] complete this topic Insurance A[employer] Care Teams Auto Overhauler Relationship Specialty Start Date End Date Shaikh Main MD PCP - General Family Medicine 04/07/23
--- OUTSIDE RECORDS SUMMARY | 2025-05-06 13:37 | XMS_ITS | Encounter Summary ---
Author Organization [facility] Address [address] [place] [address] Care Team Providers Care Gaming Manager Name Role Phone Shaikh NITHIN Main Primary Care Provider [phone] Shaikh NITHIN Main Primary Care Provider [phone] Molina De Anda MD Primary Care Provider [phone] Valerie Groves SALES DRIVER Unavailable [phone] Karime Dias PMHNP- Unavailable Rohan Burns LPC Unavailable Unavailable Reason for Visit * Reason Comments Med Refill Encounter Details Date Type Department Care Team (Late st Contact Info) Description 10/16/2023 Refill [facility] [address] [place] [address] Shaikh Main MD [address] [place] [address] Psychophysiological insomnia Social History Tobacco Use Types [...] How often do you attend chur or druze services? Never 08/07/2023 Do you belong to [...] Recorded Patient Health Questionnaire-2 Score 6 08/03/2023 [facility] [place] of Occupat ional Health - Occupational Stress [...] [facility] [address] [facility] [address] [place] [address] Rohan Burns LPC 06/02/2025 3:00 PM EST Office Visit [facility] [address] [facility] [address] [place] [address] Mcaarena Chang, DRIVEWAY ATTENDANT-ASSISTANT FOOD SERVICE DIRECTOR [address] [facility] 160 [place] [address] documented as of this encounter Goals Goal [...] documented as of this encounter Care Teams Gaming Manager Relationship Specialty Start Date End Date Shaikh Main MD PCP - General Internal Medicine 04/20/23 01/07/24 Shaikh Main MD PCP - General Internal Medicine 01/08/24 02/20/24 Molina De Anda MD PCP - General Family Medicine 02/21/24 Valerie Groves NP Nurse Practitioner Family Medicine 02/21/24 Karime Dias [facility] [address] [address] Nurse Practitioner Behavioral Health 01/22/25 Rohan Burns LPC Technical Support Analyst Behavioral Health 03/06/25 documented as of this encounter
--- OUTSIDE RECORDS SUMMARY | 2025-05-06 13:38 | XMS_ITS | Encounter Summary ---
Author Organization [facility] Address [address] [place] [address] Care Team Providers Care Graduate Research Assistant Name Role Phone Shaikh NITHIN Main Primary Care Provider [phone] Shaikh NITHIN Main Primary Care Provider [phone] Molina De Anda MD Primary Care Provider [phone] Valerie Groves TEACHER SPECIALIST Unavailable [phone] Karime Dias PMHNP- Unavailable [phone] Rohan Burns [facility] Unavailable Unavailable Encounter Details Date Type Department Care Team (Late st Contact Info) Description 08/02/2023 Orders Only [facility]ie [facility] [address] [place] [address] Shaikh Main MD [address] [facility] [place] [place] [address] Social History Tobacco Use Types Packs/Day Years [...] week 07/03/2023 How often do you attend [facility] or zoroastrian services? Patient declined 07/03/2023 Do you belong [...] Recorded Patient Health Questionnaire-2 Score 6 08/03/2023 [facility] of Occupat ional Health - [...] [facility] [address] [facility] [address] [place] [address] Rohan Burns LPC 06/02/2025 3:00 PM EST Office Visit [facility] [address] [facility] [address] [place] [address] Macarena Chang, COMBINE INSPECTOR-DETENTION DEPUTY [address] [facility] [address] [place] [address] documented as of this encounter Procedures Procedure Name Priority Date/Time Associated Diagnosis Comments MISCELLANEOUS LAB TEST Routine 07/28/2023 1:49 PM EST documented in this encounter Results * - Miscellaneous Test (07/28/2023 1:49 PM EST) Shaikh Etelvina [facility] LAB BLOOD ORDERABLES Final Resu lt documented in this encounter Visit Diagnoses Not on filedocumented in this encounter Care Teams Graduate Research Assistant Relationship Specialty Start Date End Date Shaikh Main MD PCP - General Internal Medicine 04/20/23 01/07/24 Shaikh Main MD PCP - General Internal Medicine 01/08/24 02/20/24 Molina De Anda MD PCP - General Family Medicine 02/21/24 Valerie Groves NP Nurse Practitioner Family Medicine 02/21/24 Karime Dias PMHNP- [address] [address] Nurse Practitioner Behavioral Health 01/22/25 Rohan Burns LPC Sewage Treatment Plant Operator Behavioral Health 03/06/25 documented as of this encounter
--- OUTSIDE RECORDS SUMMARY | 2025-05-06 13:38 | XMS_ITS | Encounter Summary ---
Author Organization [facility] Address [address] [place] [address] Care Team Providers Care Film Inspector Name Role Phone Molina De Anda MD Primary Care Provider [phone] Valerie Groves SQL SERVER CONSULTANT Unavailable [phone] Karime Dias PMHNP- Unavailable [phone] Rohan Burns LPC Unavailable Unavailable Encounter Details Date Type Department Care Team (Late st Contact Info) Description 02/21/2025 Abstract [facility] [place] [facility] [facility] [address] [facility] [place] [address] Pascale Arana NP [address] [place] [address] Social History Tobacco Use Types Packs/Day Years [...] How often do you attend chur or advent services? Never 08/07/2023 Do you belong to [...] Recorded Patient Health Questionnaire-2 Score 5 01/22/2025 [facility] [place] of Occupat ional Health - Occupational Stress [...] [facility] [address] [facility] [address] [place] [address] Rohan Burns LPC 06/02/2025 3:00 PM EST Office Visit [facility] [address] [facility] [address] [place] [address] Macarena Chang APRN-FARM ASSISTANT [address] [facility] [address] [place] [address] documented as of this encounter Goals Goal [...] as of this encounter Care Teams Film Inspector Relationship Specialty Start Date End Date Molina De Anda MD PCP - General Family Medicine 02/21/24 Valerie Groves NP Nurse Practitioner Family Medicine 02/21/24 [facility] [address] [address] Nurse Practitioner Behavioral Health 01/22/25 Rohan Burns LPC Film Developer Behavioral Health 03/06/25 documented as of this encounter
--- OUTSIDE RECORDS SUMMARY | 2025-05-06 13:38 | XMS_ITS | Encounter Summary ---
Author Organization [facility] Address [address] [place] [address] Care Team Providers Care Pipe Stress Engineer Name Role Phone Shaikh NITHIN Main Primary Care Provider [phone] Shaikh NITHIN Main Primary Care Provider [phone] Molina De Anda MD Primary Care Provider [phone] Valerie Groves SOCIAL WORK MANAGER Unavailable [phone] Karime Dias PMHNP- Unavailable Rohan Burns [facility] Unavailable Unavailable Encounter Details Date Type Department Care Team (Late st Contact Info) Description 08/07/2023 Orders Only [facility]ie [facility] [address] [place] [address] Shaikh Main MD [address] [facility] [place] [address] Social History Tobacco Use Types Packs/Day Years [...] Recorded Patient Health Questionnaire-2 Score 6 08/03/2023 [facility] [place] of Occupat ional Health - Occupational Stress [...] [address] [facility] [address] [place] [address] Rohan Burns BYPRODUCTS EXTRACTOR 06/02/2025 3:00 PM EST Office Visit [facility] [address] [facility] [address] [place] [address] Macarena Chang, NATUROPATHIC ONCOLOGY PROVIDER-CARDIAC CATH TECH [address] [facility] [address] [place] [address] documented as of this encounter Goals Goal [...] documented as of this encounter Care Teams Pipe Stress Engineer Relationship Specialty Start Date End Date Shaikh Main MD PCP - General Internal Medicine 04/20/23 01/07/24 Shaikh Main MD PCP - General Internal Medicine 01/08/24 02/20/24 Molina De Anda MD PCP - General Family Medicine 02/21/24 Valerie Groves NP Nurse Practitioner Family Medicine 02/21/24 Karime Dias, NORM- [address] [address] Nurse Practitioner Behavioral Health 01/22/25 Rohan Burns LPC Culinary Worker Behavioral Health 03/06/25 documented as of this encounter
--- OUTSIDE RECORDS SUMMARY | 2025-05-06 13:38 | XMS_ITS | Patient Health Record ---
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 Lives in [place], risk due to limited sun exposure. - [...] Date Coverage End Date [employer] [address] [address] [place] [id number] Talia Mercado Self - patient is the insured Medical (General) History Medical History History ICD Code GERD
--- OUTSIDE RECORDS SUMMARY | 2025-05-06 13:38 | XMS_ITS | Encounter Summary ---
Author Organization [facility] Address [address] [place] [address] Care Team Providers Care Fish Hatchery Worker Name Role Phone Molina De Anda MD Primary Care Provider [phone] Valerie Groves BAND SAW OPERATOR Unavailable [phone] Karime Dias [facility] [phone] Rohan Burns [facility] Unavailable Unavailable Encounter Details Date Type Department Care Team (Late st Contact Info) Description 01/22/2025 Orders Only [facility] [address] [facility] [address] [place] [address] Karime Dias [facility] 112 [facility] [address] [place] [address] Social History Tobacco Use Types Packs/Day Years [...] Recorded Patient Health Questionnaire-2 Score 5 01/22/2025 [facility] of Occupat ional Health - [...] [facility] 160 [place] [address] Rohan Burns LPC 06/02/2025 3:00 PM EST Office Visit [facility] [address] [facility] 160 [place] [address] Angeli-Macarena Santos, SENIOR SOFTWARE SYSTEMS ENGINEER-ORACLE FUSION CONSULTANT [address] [facility] 160 [place] [address] documented as of this encounter Goals Goal [...] documented as of this encounter Care Teams Fish Hatchery Worker Relationship Specialty Start Date End Date Molina De Anda MD PCP - General Family Medicine 02/21/24 Valerie Groves NP Nurse Practitioner Family Medicine 02/21/24 Karime Dias PMHNP-BC [address] [address] Nurse Practitioner Behavioral Health 01/22/25 Rohan Burns LPC Supervisor Net Making Behavioral Health 03/06/25 documented as of this encounter
--- OUTSIDE RECORDS SUMMARY | 2025-05-06 13:38 | XMS_ITS | Encounter Summary ---
Author Organization [employer] Address [id number] [address] [place] [address] Care Team Providers Care Door Closer Name Role Phone Pascale Arana SKILLED LABORER-PELT GRADER Primary Care Provider Encounter Details Date Type Department Care Team (Late st Contact Info) Description 02/13/2023 Telephone [facility] [address] [place] [address] Segun Keene DO [address] [place] [address] Social History Tobacco Use Types [...] office visit;just set up for colonsocopy at [facility] for anemis. I don't need to see he agian. Saw her today!!! * Telephone Encounter - Alberta Millan - 02/13/2023 11:36 AM EDT Talia called the office to try to reschedule her appointment, I informed her that Dr. Jassi fraga her set up for a colonoscopy at [facility]. Told Talia that our surgery schedulerwill call her back to schedule that with her. * Telephone Encounter - SUGEY Loyd - 02/13/2023 11:36 AM EDT I called Talia and scheduled colonoscopy at [facility] for 03/08/23. The patient is coming in tomorrow 02/14/23 to sign papers and go over bowel prep. I will send Dr. Keene a message to put in orders for this procedure and email everything over to Anh at the [facility]. documented in this encounter Plan of Treatment Upcoming Encounters Date Type Department Care Team (Late st Contact Info) Description 05/28/2025 2:30 PM EST Procedure visit [facility] [address] [place] [address] [place] [address] Tania Asif MD [address] [place] [address] documented as of this encounter Visit Diagnoses Not on filedocumented in this encounter Care Teams Door Closer Relationship Specialty Start Date End Date Pascale Arana, SKILLED LABORER-PELT GRADER [address] [place] [address] PCP - General Nurse Practitioner 04/02/25 documented as of this encounter
--- OUTSIDE RECORDS SUMMARY | 2025-05-06 13:38 | XMS_ITS | Encounter Summary ---
Author Organization [facility] Address [address] [place] [address] Care Team Providers Care Wearing Apparel Shaker Name Role Phone Shaikh NITHIN Main Primary Care Provider [phone] Shaikh NITHIN Main Primary Care Provider [phone] Molina De Anda MD Primary Care Provider [phone] Valerie Groves DOOR INSTALLER Unavailable [phone] Karime Dias PMHNP- Unavailable Rohan Burns [facility] Unavailable Unavailable Encounter Details Date Type Department Care Team (Late st Contact Info) Description 08/03/2023 Orders Only [facility]ie EN[facility] [address] [place] [address] Shaikh Main MD [address] [facility] [place] [address] Social History Tobacco Use Types Packs/Day Years [...] How often do you attend chur or yazdanism services? Never 08/07/2023 Do you belong to [...] Recorded Patient Health Questionnaire-2 Score 6 08/03/2023 [facility] [place] of Occupat ional Health - Occupational Stress [...] [address] [facility] [address] [place] [address] Rohan Burns LPC 06/02/2025 3:00 PM EST Office Visit [facility] [address] [facility] [address] [place] [address] Macarena Chang, BLEACHING SUPERVISOR-FEATHER BALER [address] [facility] [address] [place] [address] documented as of this encounter Goals Goal [...] documented as of this encounter Care Teams Wearing Apparel Shaker Relationship Specialty Start Date End Date Shaikh Main MD PCP - General Internal Medicine 04/20/23 01/07/24 Shaikh Main MD PCP - General Internal Medicine 01/08/24 02/20/24 Molina De Anda MD PCP - General Family Medicine 02/21/24 Valerie Groves NP Nurse Practitioner Family Medicine 02/21/24 Karime Dias PMHNP- [address] [place] [phone] Nurse Practitioner Behavioral Health 01/22/25 Rohan Burns LPC Dipping Machine Operator Behavioral Health 03/06/25 documented as of this encounter
--- OUTSIDE RECORDS SUMMARY | 2025-05-06 13:38 | XMS_ITS | Encounter Summary ---
Author Organization [facility] Address [address] [place] [address] Care Team Providers Care Agency Cashier Name Role Phone Molina De Anda MD Primary Care Provider [phone] Valerie Groves IT TECHNICAL SPECIALIST Unavailable [phone] Karime Dias PMHNP- Unavailable [phone] Rohan Burns LPC Unavailable Unavailable Encounter Details Date Type Department Care Team (Late st Contact Info) Description 01/20/2025 Abstract [facility] [place] [facility] [address] [facility] [place] [address] Pascale Arana NP [address] [place] [address] Social History Tobacco Use Types Packs/Day Years [...] [facility] [address] [email or web address] [address] [place] [address] Rohan Burns LPC 06/02/2025 3:00 PM EST Office Visit [facility] [address] [email or web address] 160 [place] [address] Macarena Chang, LEAK PATCHER-ASSEMBLER INSTALLER STRUCTURES [address] [facility] 160 [place] [address] documented as of this encounter Goals Goal [...] documented as of this encounter Care Teams Agency Cashier Relationship Specialty Start Date End Date Molina De Anda MD PCP - General Family Medicine 02/21/24 Valerie Groves NP Nurse Practitioner Family Medicine 02/21/24 Karime Dias, PMHNP- [address] [address] Nurse Practitioner Behavioral Health 01/22/25 Rohan Burns LPC Return Agent Behavioral Health 03/06/25 documented as of this encounter
--- OUTSIDE RECORDS SUMMARY | 2025-05-06 13:38 | XMS_ITS | Encounter Summary ---
Author Organization [facility] Address [address] [place] [address] Care Team Providers Care Peoplesoft Hcm Developer Name Role Phone Molina De Anda MD Primary Care Provider [phone] Valerie Groves MATERIAL REQUIREMENTS WORKER Unavailable [phone] Karime Dias PMHNP- Unavailable + [phone] Rohan Burns [facility] Unavailable Unavailable Encounter Details Date Type Department Care Team (Late st Contact Info) Description 11/28/2024 [facility] [address] [facility] [place] [phone] Natacha Lyn MA IGP,APTIMA HPV,AGE GDLN Social [...] week 08/07/2023 How often do you attend [facility]? Never 08/07/2023 Do you [...] Recorded Patient Health Questionnaire-2 Score 0 04/10/2024 [facility]ational Stress Questionnaire [...] [address] [facility] [address] [place] [address] Rohan Burns LPC 06/02/2025 3:00 PM EST Office Visit [facility] [address] [facility] [address] [place] [address] Macarena Chang, HOG ROOM SUPERVISOR-MOISTURE METER READER [address] [facility] [address] [place] [address] documented as of this encounter Goals Goal [...] documented as of this encounter Care Teams Peoplesoft Hcm Developer Relationship Specialty Start Date End Date Molina De Anda MD PCP - General Family Medicine 02/21/24 Valerie Groves NP Nurse Practitioner Family Medicine 02/21/24 Karime Dias, [facility] [address] [phone] Nurse Practitioner Behavioral Health 01/22/25 Rohan Burns LPC [facility] 03/06/25 documented as of this encounter
--- OUTSIDE RECORDS SUMMARY | 2025-05-06 13:38 | XMS_ITS | Patient Health Record ---
Author Organization [facility] [place] Address [address] [place] [address] Care Team Providers Care Hedis Nurse Name Role Phone None, Unknown or Primary Care Provider Unavailab Tawana Lee [phone] Allergies Allergen (clinical drug ingredient) Drug/Non Drug Allergy documented on EMR Reaction Allergy Type Onset Date Status Penicillin rash Drug Allergy Active Results Component Value Reference Range Notes XR foot LT min 3V (Not yet r eviewed by provider) Interpretation: Performing Lab: Notes/Report: Source Facility: [place] [address] XRay Report Signed Patient: KALYN RUTHERFORD MR#: [id number] : 1970 Acct:[id number] Age/Sex: 54 / F ADM Date: 09/04/24 Loc: EC Attending Dr: Tawana Hoff D.P.M. Ordering Physician: Tawana Hoff D.P.M. Date of Service: 09/04/24 Procedure(s): XR foot LT min 3V Accession Number(s): [id number] cc: NASH LAMAR Peter D.P.M. [facility] [place] [address] Patient Name: KALYN RUTHERFORD MRN: [id number] date: 1970 Sex: F Assigned Patient Location: EC Current Patient Location: Accession/Order Number: [id number] Exam Date: 09/04/2024 15:53 Report Date: 09/05/2024 [...] Signed By: 09/05/24 1019 DD/ 1016 TD/TT: Videogame Designer: CT FOOT LT WO CON (Not yet r eviewed by provider) Interpretation: Performing Lab: Notes/Report: Source Facility: [place] [address] CT Scan Report Signed Patient: KALYN RUTHERFORD MR#: [id number] : 1970 Acct:[id number] Age/Sex: 54 / F ADM Date: 09/09/24 Loc: CT Attending Dr: Tawana Hoff D.P.M. Ordering Physician: Tawana Hoff D.P.M. Date of Service: 09/09/24 Procedure(s): CT foot LT wo con Accession Number(s): [id number] cc: ANGEL LUIS LAMAR [place] [address] Patient Name: KALYN RUTHERFORD MRN: [id number] date: 1970 Sex: F Assigned Patient Location: CT Current Patient Location: CT Accession/Order Number: [id number] Exam Date: 09/09/2024 15:56 Report Date: 09/09/2024 [...] Signed By: 09/09/24 1742 DD/ 1739 TD/TT: Videogame Designer: Reason For Referral No Information Medications Medication [...] primary osteoarthritis of the ankle and/or foot (992675711) Primary osteoarthritis , left ankle and foot (M19.072) Active confirmed Problem Gastroesophageal reflux disease (309385046) GERD (gastroesophag eal reflux disease) (K21.9) Active confirmed Problem Pain in left foot (499082967483747) Left foot pain (M79.672) Active confirmed Problem Anxiety depression (263348535) Anxiety with depression (F41.8) Active confirmed Problem Ulcer of big toe (disorder) (936240981) Chronic ulcer of great toe of left foot with fat layer exposed (L97.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) Active confirmed Vital Signs Heart Rate 85 /min 09/18/2024 Respiratory Rate 16 /min 09/18/2024 Oximetry 97 % 09/18/2024 Encounters Encounter Location Date Provider Diagnosis [facility] (PODIATRY) [address] [place] [address] [place] [address] 09/04/2024 Tawana Hoff Pain due to internal orthopedic prosthetic devices, implants and grafts, initial encounter T84.84XA ; Primary osteoarthritis, left ankle and foot M19.072 and Left foot pain M79.672 [facility] (PODIATRY) [address] [place] [address] [place] [address] 09/18/2024 Tawana Hoff 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.0 ; Primary osteoarthritis, left ankle and foot M19.072 and Pain due to internal orthopedic prosthetic devices, implants and grafts, initial encounter T84.84XA [facility] (PODIATRY) [address] [place] [address] [place] [address] 09/04/2024 Tawana Sudoron Assessments Encounter Date Diagnosis (ICD Code) Assessment [...] Coverage End Date RANDI COURTNEY [address] [place] [address] [id number] Kalyn Rutherford Self - patient is the insured Medical (General) History Medical History History ICD Code GERD (gastroesophageal reflux disease) K 21.9 Anxiety F41.9 Arthritis M19.90 Nicotine dependence F17.200 Bipolar depression F31.9 Overactive bladder N32.81 Peripheral arterial disease I73.9 Surgical History Surgery Date(Month/Year) posterior colporrhaphy repair, enterocel e repair 02/15/2021 gastric bypass 08/2019 tubal ligation cholecystectomy
--- OUTSIDE RECORDS SUMMARY | 2025-05-06 13:38 | XMS_ITS | Encounter Summary ---
Author Organization [facility] Address [address] [place] [address] Care Team Providers Care Transportation Project Manager Name Role Phone Molina De Anda MD Primary Care Provider [phone] Valerie Groves DISTILLATION OPERATOR HELPER Unavailable [phone] Karime Dias PMHNP- Unavailable [phone] Rohan Burns WASHING MACHINE MECHANIC Unavailable Unavailable Encounter Details Date Type Department Care Team (Late st Contact Info) Description 11/18/2024 Orders Only [facility] [place] [facility] [address] [facility] [place] [address] Pascale Arana NP [address] [place] [address] Social History Tobacco Use Types Packs/Day Years [...] Recorded Patient Health Questionnaire-2 Score 0 04/10/2024 [facility] Occupat ional Health - Occupational Stress [...] [facility] [address] [facility] [address] [place] [address] Rohan Burns LPC 06/02/2025 3:00 PM EST Office Visit [facility] [address] [facility] [address] [place] [address] Macarena Chang APRN-PROCUREMENT REPRESENTATIVE [address] [facility] [address] [place] [address] documented as of this encounter Goals Goal [...] (11/18/2024 2:41 PM EDT) us Pascale Arana DISTILLATION OPERATOR HELPER LAB CHG PERFORMABLES Final Resu lt documented in this encounter Visit Diagnoses Not on filedocumented in this encounter Additional Health Concerns Active Problems Noted Date Diagnosed Date Patient on antidepressant monitoring plan 2023 Assessment Noted Time PHQ-9 Depression Total Score: 23 024 4:27 PM EST documented as of this encounter Care Teams Transportation Project Manager Relationship Specialty Start Date End Date Molina De Anda MD PCP - General Family Medicine 02/21/24 Valerie Groves NP Nurse Practitioner Family Medicine 02/21/24 [facility] [address] [phone] Nurse Practitioner Behavioral Health 01/22/25 Rohan Burns LPC Aircraft Communicator Behavioral Health 03/06/25 documented as of this encounter
--- OUTSIDE RECORDS SUMMARY | 2025-05-06 13:38 | XMS_ITS | Encounter Summary ---
Author Organization [facility] Address [address] [place] [address] Care Team Providers Care Tennis Player Name Role Phone Molina De Anda MD Primary Care Provider [phone] Valerie Groves TRIM INSTALLER Unavailable [phone] Karime Dias PMHNP- Unavailable [phone] Rohan Burns LPC Unavailable Unavailable Encounter Details Date Type Department Care Team (Late st Contact Info) Description 01/06/2025 Abstract [facility] [place] [facility] [address] [facility] [place] [address] Pascale Arana NP [address] [place] [address] Social History Tobacco Use Types Packs/Day Years [...] Questionnaire-2 Score 0 04/10/2024 [facility] of Occupat ional Health - Occupational [...] [facility] [address] [facility] [address] [place] [address] Rohan Burns LPC 06/02/2025 3:00 PM EST Office Visit [facility] [address] [facility] [address] [place] [address] Macarena Chang, AMMONIA PRINT OPERATOR-APPLICATION SERVICES MANAGER [address] [facility] [address] [place] [address] documented as of this encounter Goals Goal [...] documented as of this encounter Care Teams Tennis Player Relationship Specialty Start Date End Date Molina De Anda MD PCP - General Family Medicine 02/21/24 Valerie Groves NP Nurse Practitioner Family Medicine 02/21/24 [facility] [address] [place] [phone] Nurse Practitioner Behavioral Health 01/22/25 Rohan Burns LPC District Operations Manager Behavioral Health 03/06/25 documented as of this encounter
--- OUTSIDE RECORDS SUMMARY | 2025-05-06 13:38 | XMS_ITS | Clinical Summary ---
Author Organization [facility] Address [id number] [address] [place] [address] Care Team Providers Care Dynamics Ax Solution Architect Name Role Phone DerrickPascale argueta EP SPECIALIST-COMPUTER SCIENTIST Primary Care Provider Allergies Active Allergy Reactions [...] - Urogynecology [address] [place] [address] Areli Gudino CMA 04/02/2025 3:00 PM EDT Office Visit [facility] [address] [place] [address] Tania Asif MD Cystocele with second degree uterine prolapse (Primary Dx); History of reconstructive repair of rectocele; Urge urinary incontinence 04/02/2025 Travel 02/24/2025 Abstract [facility] - Urogynecology [address] [facility] [place] [address] Tania Asif MD 02/06/2025 2:15 PM EDT Office Visit [facility] Obstetrics/Gynecolog y [address] [place] [address] Leslye Muniz, DO Cystocele with second degree [...] visit [facility] Urogyn [address] [facility] [place] [address] Tania Asif MD [address] [place] [address] Health Maintenance Due Date Last Done Comments Tobacco Counseling 1971 Depression Screening 1983 Adult BMI Follow Up Plan 1989 DTaP,Tdap and Td Vaccines (1 - Tdap) 1990 Pap Smear 1992 Zoster (Shingles) Vaccine (1 of 2) 2021 Influenza Vaccine 03/24/2025 Adult BMI Screening 04/02/2026 04/02/2025 Tobacco Screening 2026 2025 Medical Devices Not on file Insurance [employer] Care Teams Dynamics Ax Solution Architect Relationship Specialty Start Date End Date Pascale Arana, EP SPECIALIST-COMPUTER SCIENTIST [address] [place] [address] PCP - General Nurse Practitioner 04/02/25
--- OUTSIDE RECORDS SUMMARY | 2025-05-06 13:39 | XMS_ITS | Clinical Summary ---
Author Organization [facility] Address [address] [place] [address] Care Team Providers Care B2B Managed Service Sales Exec Name Role Phone Molina De Anda MD Primary Care Provider [phone] Valerie Groves FLAT LOCKER Unavailable [phone] Karime Dias PMHNP-BC Unavailable [phone] Rohan Burns [facility] Unavailable Unavailable Allergies Active Allergy Reactions Criticality [...] abdominal wall 08/12/2024 11/20/2024 Overview (08/12/2024): Dori [id number] EXP: 10/22/2026 LOT # [id number] Assessment & Plan (08/12/2024 5:50 PM EST): [...] PM EDT Social Work [facility] [place] [facility] [employer] [employer] [facility] [address] [place] [place] [address] Rohan Burns LPC JESSIKA (generalized anxiety disorder) ; Severe episode of recurrent major depressive disorder, without psychotic features (HCC); PTSD (post-traumatic stress disorder) 04/09/2025 Bamboo flowsheet [facility] [place] [employer] [facility] [address] [place] [place] [address] Rohan Burns LPC 04/09/2025 Travel 04/03/2025 9:00 AM EDT Telemedicine [facility] [address] [place] [address] [facility] JESSIKA (generalized anxiety disorder) ; Severe episode of recurrent major depressive disorder, without psychotic features (HCC); PTSD (post-traumatic stress disorder) ; Insomnia, unspecified type; Fibromyalgia 04/03/2025 Travel 03/29/2025 Refill [facility] [place] [employer] [facility] [address] [place] [place] [address] [facility] Severe episode of recurrent major depressive disorder, without psychotic features (HCC) 03/25/2025 2:30 PM EDT Social Work [facility] [place] [employer] [facility] [address] [place] [place] [address] Rohan Burns LPC JESSIKA (generalized anxiety disorder) ; Severe episode of recurrent major depressive disorder, without psychotic features (HCC); PTSD (post-traumatic stress disorder) 03/25/2025 Bamboo flowsheet [facility] [place] [facility] [address] [place] [place] [address] Rohan Burns LPC 03/25/2025 Travel 03/18/2025 Travel 03/10/2025 Results Follow-Up [facility] [place] [facility] [address] [place] [address] Natacha Lyn MA ALL CBC WITH AUTO DIFF, [facility] IRON 03/06/2025 3:00 PM EDT Social Work [facility] [place] [facility] [address] [place] [place] [address] Rohan Burns LPC JESSIKA (generalized anxiety disorder) ; Severe episode of recurrent major depressive disorder, without psychotic features (HCC); PTSD (post-traumatic stress disorder) 03/06/2025 Bamboo flowsheet [facility] [place] [facility] [address] [place] [place] [address] Rohan Burns LPC 03/06/2025 Travel 03/05/2025 Clinisync Result Encounter NOMS External Department Unsolicited Pascale Arana NP 02/26/2025 Clinisync Result Encounter NOMS External Department Unsolicited Provider, Generic External Data 02/26/2025 Refill [facility] [place] [facility] [address] [place] [address] Pascale Arana NP Gastroesophageal reflux disease, unspecified whether esophagitis present (Primary Dx) 02/26/2025 Telephone [facility] [place] [facility] [address] [place] [address] Pascale Arana NP 02/25/2025 11:30 AM EDT Office Visit [facility] [place] [facility] [address] [place] [address] Pascale Arana NP Severe episode of recurrent major depressive disorder, without psychotic features (HCC) (Primary Dx); Cigarette nicotine dependence without complication; PTSD (post-traumatic stress disorder) ; Class 1 obesity due to excess calories without serious comorbidity with body mass index (BMI) of 32.0 to 32.9 in adult; Iron deficiency anemia secondary to inadequate dietary iron intake; Primary insomnia 02/25/2025 Abstract [facility] [place] [facility] [address] [place] [address] Pascale rAana NP 02/24/2025 3:00 PM EDT Office Visit [facility] [place] [facility] [address] [place] [place] [address] Karime Dias, [facility] JESSIKA (generalized anxiety disorder) ; Severe episode of recurrent major depressive disorder, without psychotic features (HCC); PTSD (post-traumatic stress disorder) ; Insomnia, unspecified type; Sleep apnea, unspecified type 02/24/2025 Bamboo flowsheet [facility] [place] [facility] [address] [facility] [address] [place] [address] Karime Dias [facility] 02/24/2025 Travel 02/21/2025 Abstract [facility] [place] [facility] [address] [place] [address] Pascale Arana NP 02/20/2025 Refill [facility] [place] [facility] [address] [place] [address] Pascale Arana NP Psychophysiological insomnia 02/19/2025 Clinisync Result Encounter NOMS External Department Unsolicited Provider, Generic External Data 02/18/2025 Abstract [facility] [place] [facility] [address] [place] [address] Pascale Arana NP 02/17/2025 Telephone [facility] [place] [facility] [address] [place] [address] Pascale Arana NP Error (VOID this visit) 02/11/2025 Refill [facility] [place] [facility] [address] [place] [address] Pascale Arana NP UTI (urinary tract infection), uncomplicated; Class 1 obesity due to excess calories without serious comorbidity in adult, unspecified BMI; BMI 32.0-32.9,adult 02/06/2025 Refill [facility] [place] [facility] [address] [place] [address] Pascale Arana NP URTI (acute upper respiratory [...] week 08/07/2023 How often do you attend [facility] or yazdanism services? Never 08/07/2023 Do you [...] 5 01/22/2025 [facility] - Occupational Stress Questionnaire Answer [...] [facility] [address] [place] [address] Rohan Burns LPC 06/02/2025 3:00 PM EST Office Visit [facility] [place] [facility] [address] [facility] [address] [place] [address] Macarena Chang APRN-MEDICAL EQUIPMENT REPAIR TECHNICIAN [address] [facility] [address] [place] [address] Goals Goal Patient Goal Type Associated Problems [...] * [facility] IRON (03/05/2025 5:03 PM EDT) [facility] IRON 78.0 50.0 - 170.0 ug/dL [facility] 03/05/2025 5:03 PM EDT 03/05/2025 5:06 PM EDT Narrative CLINISYNC - 03/05/2025 5:54 PM EDT us Pascale Arana NP [facility] * (ABNORMAL) ALL CBC WITH AUTO DIFF [...] us Pascale Arana NP [facility] SEGMENTAL BLOOD PRESSURE (02/26/2025 3:34 PM EDT) Anatomical Region Laterality Modality Radiographic Maeve ging 02/26/2025 3:34 PM EDT Narrative 02/27/2025 9:07 AM EDT The [address] [address] Cardiology Report Signed Patient: TALIA RUTHERFORD MR#: [id number] : 1970 Acct:[id number] Age/Sex: 54 / F ADM Date: 02/26/25 Loc: CARD Attending Dr: Michael LAZAR Ordering Physician: Michael Escobedo Date of Service: 02/26/25 Procedure(s): CA segmental UE or LE PONCE Accession Number(s): [id number] cc: Pascale Arana NP; Michael Escobedo [facility] Test Date: 2025-02-26 Pat Name: TALIA RUTHERFORD Department: Room: - Gender: Female Freelance Copywriter: Cari Nichole : 1970 Requested By: Michael Escobedo Order Number: [id number] Reading MD: SCOTT PARKINSON M.D. Interpretive Statements [...] 02/27/25 0907 02/27/25 0907 DD/ 1534 TD/TT: Brush Hand: Procedure Note Radiology, Radiologist, MD - 02/27/2025 [place] [address] Cardiology Report Signed Patient: TALIA RUTHERFORD DMR#: [id number] : 1970Acct:[id number] Age/Sex: 54 / FADM Date: 02/26/25 Loc: CARD Attending Dr: Michael LAZAR Ordering Physician: Michael Escobedo Date of Service: 02/26/25 Procedure(s): CA segmental UE or LE PONCE Accession Number(s): [id number] cc: Pascale Arana NP; Michael Escobedo [facility] Test Date: 2025-02-26 Pat Name: TALIA RUTHERFORD Department: Room: - Gender: Female Freelance Copywriter: Cari Nichole : 1970 Requested By: Michael Escobedo Order Number: [id number] Reading MD: SCOTT PARKINSON M.D. Interpretive Statements [...] By:02/27/25 0907 02/27/25 0907 DD/ 1534 TD/TT: Brush Hand: us Generic External Data Provider IMG XR PROCEDURES Final Result * XR FOOT LT MIN 3V (02/19/2025 3:03 PM EDT) Anatomical Region Laterality Modality Other 02/19/2025 3:03 PM EDT Narrative 02/19/2025 3:06 [place] [address] XRay Report Signed Patient: TALIA RUTHERFORD MR#: [id number] : 1970 Acct:[id number] Age/Sex: 54 / F ADM Date: 02/19/25 Loc: [facility] Attending Dr: Michael LAZAR Ordering Physician: Michael Escobedo Date of Service: 02/19/25 Procedure(s): XR foot LT min 3V Accession Number(s): [id number] cc: Pascale Arana NP; Michael Escobedo The [place] [id number] Patient Name: TALIA RUTHERFORD MRN: [id number] date: 1970 Sex: F Assigned Patient Location: [facility] Current Patient Location: [facility] Accession/Order Number: [id number] Exam Date: 02/19/2025 10:39 Report Date: 02/19/2025 [...] Jr., D.O. 02/19/2025 3:03 PM Dictation Location: [place] [address] Electronically authenticated by: [id number] Y Date: 02/19/2025 15:03 Dictated By: Meriln Massey M.D. Signed By: 02/19/25 1506 DD/ 1503 TD/TT: Brush Hand: Procedure Note Radiology, Radiologist, MD - 02/19/[address] [address] XRay Report Signed Patient: TALIA RUTHERFORD DMR#: [id number] : 1970Acct:[id number] Age/Sex: 54 / FADM Date: 02/19/25 Loc: RAD Attending Dr: Michael LAZAR Ordering Physician: Michael Escobedo Date of Service: 02/19/25 Procedure(s): XR foot LT min 3V Accession Number(s): [id number] cc: Pascale Arana NP; Michael Escobedo [place] [address] Patient Name: TALIA RUTHERFORD MRN: [id number] date: 1970 Sex: F Assigned Patient Location: RAD Current Patient Location: RAD Accession/Order Number: [id number] Exam Date: 02/19/2025 10:39 Report Date: 02/19/2025 [...] Jr., D.O. 02/19/2025 3:03 PM Dictation Location: [place] [address] Electronically authenticated by: [id number] Y Date: 5:03 Dictated By: Merlin Massey M.D. Signed By:02/19/25 1506 DD/ 1503 TD/TT: Brush Hand: us Generic External Data Provider CLINISYNC IMAGING Final Result * MR LUMBAR SPINE WO CON (02/05/2025 2:18 PM EDT) Anatomical Region Laterality Modality Other 02/05/2025 2:18 PM EDT Narrative 02/05/2025 2:21 PM EDT The [address] [address] Magnetic Resonance Report Signed Patient: TALIA RUTHERFORD MR#: [id number] : 1970 Acct:[id number] Age/Sex: 54 / F ADM Date: 02/04/25 Loc: MRI Attending Dr: Bandar Eden M.D. Ordering Physician: Bandar Eden M.D. Date of Service: 02/04/25 Procedure(s): MR lumbar spine wo con Accession Number(s): [id number] cc: Pascale Arana NP; Bandar Eden M.D. The [place] [id number] Patient Name: TALIA RUTHERFORD MRN: [id number] date: 1970 Sex: F Assigned Patient Location: MRI Current Patient Location: Accession/Order Number: [id number] Exam Date: 02/05/2025 12:16 Report Date: 02/05/2025 [...] Circumferential disc bulge with moderate facet arthropathy. Mzpq-kk-nrhukzbq right-sided and mild left-sided neural foraminal narrowing . 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 Impression dictated by: Mushtaq Antony M.D. 02/05/2025 2:18 PM Dictation Location: [place] [address] Electronically authenticated by: [id number] Y Date: 02/05/2025 14:18 Dictated By: Mushtaq Antony M.D. Signed By: 02/05/25 1421 DD/ 1418 TD/TT: Brush Hand: Procedure Note Radiology, Radiologist, MD - 02/05/2025 [place] [address] Magnetic Resonance Report Signed Patient: TALIA RUTHERFORD DMR#: [id number] : 1970Acct:[id number] Age/Sex: 54 / FADM Date: 02/04/25 Loc: MRI Attending Dr: Bandar Eden M.D. Ordering Physician: Bandar Eden M.D. Date of Service: 02/04/25 Procedure(s): MR lumbar spine wo con Accession Number(s): [id number] cc: Pascale Arana FLAT LOCKER; Bandar Eden M.D. The [place] [id number] Patient Name: TALIA RUTHERFORD MRN: [id number] date: 1970 Sex: F Assigned Patient Location: MRI Current Patient Location: Accession/Order Number: [id number] Exam Date: 02/05/2025 12:16 Report Date: 02/05/2025 [...] Circumferential disc bulge with moderate facet arthropathy. Hfiu-wt-acwjrero right-sided and mild left-sided neural foraminalnarrowing . 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 Impression dictated by: Mushtaq Antony M.D. 02/05/2025 2:18 PM Dictation Location: [place] [address] Electronically authenticated by: [id number] Y Date: 4:18 Dictated By: Mushtaq Antony M.D. Signed By:02/05/25 1421 DD/ 1418 TD/TT: Brush Hand: us Generic External Data Provider CLINISYNC IMAGING Final Result * MR cervical spine wo contrast (02/05/2025 12:16 PM EDT) Anatomical Region Laterality Modality Spine, C-spine Magnetic Resonan ce 02/05/2025 12:1 6 PM EDT Narrative 02/05/2025 12:18 PM EDT The [address] [address] Magnetic Resonance Report Signed Patient: TALIA RUTHERFORD MR#: [id number] : 1970 Acct:[id number] Age/Sex: 54 / F ADM Date: 02/04/25 Loc: MRI Attending Dr: Bandar Eden M.D. Ordering Physician: Bandar Eden M.D. Date of Service: 02/04/25 Procedure(s): MR cervical spine wo con Accession Number(s): [id number] cc: Pascale Arana FLAT LOCKER; Bandar Eden M.D. [place] [address] Patient Name: TALIA RUTHERFORD MRN: [id number] date: 1970 Sex: F Assigned Patient Location: MRI Current Patient Location: Accession/Order Number: [id number] Exam Date: 02/05/2025 12:10 Report Date: 02/05/2025 [...] Uncovertebral spurring greatest right. Moderate right and quyb-zu-fuzsnycj left-sided neural foraminal narrowing. Mild canal narrowing. C5-6: Broad-based disc bulge with uncovertebral spurring, greatest left. Moderate right-sided moderate to severe left-sided neural foraminal narrowing. Mild central canal stenosis. C6-C7: Broad-based disc osteophyte complex with uncovertebral spurring. Xpfp-ii-hkqvjxbf right moderate severe left neural foraminal narrowing. Fpir-tz-abicfdcb canal narrowing. C7-T1: Minimal vertebral hypertrophy. Moderate facet arthropathy. Canal and patent. Mild foraminal narrowing. MR/MR cervical spine wo con IMPRESSION: Overall multilevel degenerative changes with up to kclb-ou-ystyvtig central canal narrowing. Multilevel foraminal encroachment as noted above. Impression dictated by: Mushtaq Antony M.D. 02/05/2025 12:16 PM Dictation Location: [place] [address] Electronically authenticated by: [id number] Y Date: 02/05/2025 12:16 Dictated By: Mushtaq Antony M.D. Signed By: 02/05/25 1218 DD/ TD/TT: Brush Hand: Procedure Note Radiology, Radiologist, - 02/05/2025 [place] [address] Magnetic Resonance Report Signed Patient: TALIA RUTHERFORD DMR#: [id number] : 1970Acct:[id number] Age/Sex: 54 / FADM Date: 02/04/25 Loc: MRI Attending Dr: Bandar Eden M.D. Ordering Physician: Bandar Eden M.D. Date of Service: 02/04/25 Procedure(s): MR cervical spine wo con Accession Number(s): [id number] cc: Pascale Arana FLAT LOCKER; Bandar Eden M.D. The [place] [id number] Patient Name: TALIA RUTHERFORD MRN: [id number] date: 1970 Sex: F Assigned Patient Location: MRI Current Patient Location: Accession/Order Number: [id number] Exam Date: 02/05/2025 12:10 Report Date: 02/05/2025 [...] Uncovertebral spurring greatest right. Moderate right and jdsh-eu-qlcgnwos left-sided neural foraminal narrowing. Mild canal narrowing. C5-6: Broad-based disc bulge with uncovertebral spurring, greatest left. Moderate right-sided moderate to severe left-sided neural foraminalnarrowing. Mild central canal stenosis. C6-C7: Broad-based disc osteophyte complex with uncovertebral spurring. Kehn-rr-cxusixts right moderate severe left neural foraminal narrowing. Ubac-lw-grmnxacb canal narrowing. C7-T1: Minimal vertebral hypertrophy. Moderate facet arthropathy. [place]aland patent. Mild foraminal narrowing. MR/MR cervical spine wo con IMPRESSION: Overall multilevel degenerative changes with up to rjrz-js-trptagoecxavksl canal narrowing. Multilevel foraminal encroachment as noted above. Impression dictated by: Mushtaq Antony M.D. 02/05/2025 12:16 PM Dictation Location: [place] [address] Electronically authenticated by: [id number] Y Date: 2:16 Dictated By: Mushtaq Antony M.D. Signed By:02/05/25 1218 DD/ 1216 TD/TT: Brush Hand: Generic External Data Provider IMG MRI PROCEDURE S Final Result from Last 3 Months Additional Health Concerns Active Problems Noted Date Diagnosed Date Patient on antidepressant monitoring plan 2023 Insurance [employer] Care Teams B2B Managed Service Sales Exec Relationship Specialty Start Date End Date Molina De Anda MD PCP - General Family Medicine 02/21/24 Valerie Groves NP Nurse Practitioner Family Medicine 02/21/24 Karime Dias [facility]- [address] [facility] [address] [place] [address] Nurse Practitioner Behavioral Health 01/22/25 Rohan Burns LPC Motor Vehicles Supervisor Behavioral Health 03/06/25
--- OUTSIDE RECORDS SUMMARY | 2025-05-06 13:39 | XMS_ITS | Encounter Summary ---
Author Organization [employer] [id number] [address] [place] [address] Care Team Providers Care Vice President For Philanthropy Name Role Phone Pascale Arana POLISHER AND BUFFER-IT DIRECTOR Primary Care Provider Encounter Details Date Type Department Care Team (Late st Contact Info) Description 05/02/2025 Telephone [facility]ro[facility]ne[facility] [address] [place] [address] Areli Gudino CMA Social History [...] [facility] [address] [address] [address] [address] [place] [place] [address] aTnia Asif MD [address] [facility] [address] [place] [address] documented as of this encounter Visit Diagnoses Diagnosis Cystocele with second degree uterine prolapse- Primary History of reconstructive repair of rectocele Urge urinary incontinence Urge incontinence documented in this encounter Care Teams Vice President For Philanthropy Relationship Specialty Start Date End Date Pascale Arana, POLISHER AND BUFFER-IT DIRECTOR [address] [place] [address] PCP - General Nurse Practitioner 04/02/25 documented as of this encounter
--- OUTSIDE RECORDS SUMMARY | 2025-05-06 13:39 | XMS_ITS | Encounter Summary ---
Author Organization [facility] Address [address] [place] [address] Care Team Providers Care Hot Dip Tinning Supervisor Name Role Phone Molina De Anda MD Primary Care Provider [phone] Valerie Groves PRIMARY GRADE TEACHER Unavailable [phone] Karime Dias PMHNP- Unavailable [phone] Rohan Burns LPC Unavailable Unavailable Reason for Visit * Reason Onset Date Comments Med Refill Letter for School/Work 02/01/2025 Encounter Details Date Type Department Care Team (Late st Contact Info) Description 02/01/2025 Refill [facility] [place] [facility] [address] [place] [address] Pascale Arana NP [address] [place] [address] Bipolar disorder with severe depression (HCC) Social [...] Patient Health Questionnaire-2 Score 5 01/22/2025 [facility] [place] [facility] Occupat ional Health - Occupational Stress [...] [address] [place] [address] [place] [address] Rohan Burns LPC 06/02/2025 3:00 PM EST Office Visit [facility] [place] [facility] [address] [address] [place] [address] Angeli-Macarena Santos, MANAGEMENT SUPERVISOR-ACCOUNTS RECEIVABLE COORDINATOR [address] [place] [address] documented as of this encounter Goals Goal [...] documented as of this encounter Care Teams Hot Dip Tinning Supervisor Relationship Specialty Start Date End Date Molina De Anda MD PCP - General Family Medicine 02/21/24 Valerie Groves NP Nurse Practitioner Family Medicine 02/21/24 [facility] [address] [facility] [address] [place] [address] Nurse Practitioner Behavioral Health 01/22/25 Rohan Burns LPC Cutter Tender Behavioral Health 03/06/25 documented as of this encounter
--- OUTSIDE RECORDS SUMMARY | 2025-05-06 13:39 | XMS_ITS | Encounter Summary ---
Author Organization [facility] Address [address] [place] [address] Care Team Providers Care Specialty Sales Consultant Name Role Phone Molina De Anda MD Primary Care Provider [phone] Valerie Groves VIBRATION TECHNICIAN Unavailable [phone] Karime Dias PMHNP-BC Unavailable [phone] Rohan Burns [facility] Unavailable Unavailable Encounter Details Date Type Department Care Team (Late st Contact Info) Description 03/10/2025 Results Follow-Up [facility] [place] [facility] [address] [facility] [address] Natacha Lyn MA ALL CBC WITH AUTO [...] week 08/07/2023 How often do you attend [facility] or rastafarian services? Never 08/07/2023 Do you [...] Recorded Patient Health Questionnaire-2 Score 5 01/22/2025 [facility] - [facility]ational Stress [...] Behavioral Health [address] [facility] [address] [place] [address] Rohan Burns LPC 06/02/2025 3:00 PM EST Office Visit [facility] [place] [facility] [address] [facility] [address] [place] [address] Macarena Chang, BOBBIN HAULER-DIAMOND SELECTOR [address] [place] [address] [place] [address] documented as of this encounter Goals Goal [...] documented as of this encounter Care Teams Specialty Sales Consultant Relationship Specialty Start Date End Date Molina De Anda MD PCP - General Family Medicine 02/21/24 Valerie Groves NP Nurse Practitioner Family Medicine 02/21/24 Karime Dias, [facility] [address] [address] Nurse Practitioner Behavioral Health 01/22/25 Rohan Burns LPC Cement Tester Assistant Behavioral Health 03/06/25 documented as of this encounter
--- OUTSIDE RECORDS SUMMARY | 2025-05-06 13:39 | XMS_ITS | Encounter Summary ---
Author Organization [facility] Address [address] [place] [address] Care Team Providers Care Saw Grinder Name Role Phone Shaikh NITHIN Main Primary Care Provider [phone] Shaikh NITHIN Main Primary Care Provider [phone] Molina De Anda MD Primary Care Provider [phone] Valerie Groves BOATSWAINS MATE Unavailable [phone] Karime Dias PMHNP-BC Unavailable Rohan Burns [facility] Unavailable Unavailable Encounter Details Date Type Department Care Team (Late st Contact Info) Description 11/20/2023 Orders Only [facility] [address] [place] [address] Shaikh Main MD [address] [place] [address] Social History Tobacco Use Types Packs/Day Years [...] Recorded Patient Health Questionnaire-2 Score 0 11/13/2023 [facility] [place] of Occupat ional Health - Occupational Stress [...] [facility] [address] [facility] [address] [place] [address] Rohan Burns LPC 06/02/2025 3:00 PM EST Office Visit [facility] [address] [facility] [address] [place] [address] Macarena Chang, TECHNICAL SUPPORT COORDINATOR-TURKEY PICKER [address] [facility] [address] [place] [address] documented as of this encounter Goals Goal [...] documented as of this encounter Care Teams Saw Grinder Relationship Specialty Start Date End Date Shaikh Main MD PCP - General Internal Medicine 04/20/23 01/07/24 Shaikh Main MD PCP - General Internal Medicine 01/08/24 02/20/24 Molina De Anda MD PCP - General Family Medicine 02/21/24 Valerie Groves NP Nurse Practitioner Family Medicine 02/21/24 Karime Dias PMHN- [address] [phone] Nurse Practitioner Behavioral Health 01/22/25 Rohan Burns LPC Community Affairs Manager Behavioral Health 03/06/25 documented as of this encounter
--- OUTSIDE RECORDS SUMMARY | 2025-05-06 13:39 | XMS_ITS | Encounter Summary ---
Author Organization [facility] Address [address] [place] [address] Care Team Providers Care Commercial Sales Specialist Name Role Phone Molina De Anda MD Primary Care Provider [phone] Valerie Groves PHYSICIAN OFFICE SECRETARY Unavailable [phone] Karime Dias PMHNP- Unavailable [phone] Rohan Burns [employer] BW ARCHITECT Unavailable Unavailable Encounter Details Date Type Department Care Team (Late st Contact Info) Description 11/14/2024 Orders Only [facility] [address] [facility] [place] [address] Pascale Arana NP [address] [place] [address] UTI (urinary tract infection), uncomplicated (Primary Dx) [...] r organizations such as catholic groups, unions, fraGeoli.st Classifieds or athletic groups, or school groups? No [...] Recorded Patient Health Questionnaire-2 Score 0 04/10/2024 [facility] of Occupat ional [...] Work [facility] 112 [facility] [address] [place] [address] Rohan Burns LPC 06/02/2025 3:00 PM EST Office Visit [facility] 112 [facility] [address] [place] [address] Macarena Chang, WAREHOUSE LABORER-EMERGENCY ROOM TECHNICIAN 112 [facility] [address] [place] [address] Scheduled Orders Name Type Priority Associated Diagnoses [...] as of this encounter Care Teams Commercial Sales Specialist Relationship Specialty Start Date End Date Molina De Anda MD PCP - General Family Medicine 02/21/24 Valerie Groves NP Nurse Practitioner Family Medicine 02/21/24 [facility] [address] [place] [phone] Nurse Practitioner Behavioral Health 01/22/25 Rohan Burns LPC [employer] Sales Behavioral Health 03/06/25 documented as of this encounter
--- OUTSIDE RECORDS SUMMARY | 2025-05-06 13:39 | XMS_ITS | Encounter Summary ---
Author Organization [facility] Address [address] [place] [address] Care Team Providers Care Non Food Receiving Clerk Name Role Phone Molina De Anda MD Primary Care Provider [phone] Valerie Groves PITCH WORKER Unavailable [phone] Karime Dias PMHNP-BC Unavailable [phone] Rohan Burns [facility] Unavailable Unavailable Reason for Visit * Reason Onset Date Comments Med Refill 11/18/2024 Encounter Details Date Type Department Care Team (Late st Contact Info) Description 11/18/2024 Refill [facility] [address] [facility] [address] [place] [address] Molina De Anda MD [address] [place] [address] Plantar fasciitis of right foot (Primary Dx) [...] Recorded Patient Health Questionnaire-2 Score 0 04/10/2024 [facility] [place] of Occupat ional Health - Occupational Stress [...] [facility] [address] [place] [address] Rohan Burns LPC 06/02/2025 3:00 PM EST Office Visit [facility] [address] [facility] [address] [place] [address] Macarena Chang, TOBACCO BALER-CARBON GRINDER [address] [facility] [address] [place] [address] documented as of this encounter Goals Goal [...] documented as of this encounter Care Teams Non Food Receiving Clerk Relationship Specialty Start Date End Date Molina De Anda MD PCP - General Family Medicine 02/21/24 Valerie Groves NP Nurse Practitioner Family Medicine 02/21/24 [facility] [address] [phone] Nurse Practitioner Behavioral Health 01/22/25 Rohan Burns LPC Site Supervisor Behavioral Health 03/06/25 documented as of this encounter
--- OUTSIDE RECORDS SUMMARY | 2025-05-06 13:39 | XMS_ITS | Encounter Summary ---
Author Organization [facility] Address [address] [place] [address] Care Team Providers Care Lime Kiln Worker Helper Name Role Phone Molina De Anda MD Primary Care Provider [phone] Valerie Groves DEPARTMENT OPERATIONS MANAGER Unavailable [phone] Karime Dias PMHNP- Unavailable [phone] [facility] Unavailable Unavailable Encounter Details Date Type Department Care Team (Late st Contact Info) Description 02/29/2024 Orders Only [facility] [address] [place] [address] Valerie Groves NP Social History [...] Recorded Patient Health Questionnaire-2 Score 0 02/28/2024 [facility]ational Stress Questionnaire Answer Date [...] WAY [facility] [address] [place] [address] Rohan Burns LPC 06/02/2025 3:00 PM EST Office Visit [facility] [address] [place] [address] [place] [address] Macarena Chang, FIXED WING AIRCRAFT FLIGHT MECHANIC-FRUIT CHECKER [address] [facility] [address] [place] [address] documented as of this encounter Goals Goal [...] Laterality Modality Radiographic Maeve ging Valerie Groves DEPARTMENT OPERATIONS MANAGER IMG XR PROCEDURES Final Result documented in this encounter Visit Diagnoses Not on filedocumented in this encounter Additional Health Concerns Active Problems Noted Date Diagnosed Date Patient on antidepressant monitoring plan 2023 Assessment Noted Time PHQ-9 Depression Total Score: 23 024 4:27 PM EST documented as of this encounter Care Teams Lime Kiln Worker Helper Relationship Specialty Start Date End Date Molina De Anda MD PCP - General Family Medicine 02/21/24 Valerie Groves NP Nurse Practitioner Family Medicine 02/21/24 [facility] [address] [phone] Nurse Practitioner Behavioral Health 01/22/25 Rohan Burns LPC Packaging Line Operator Behavioral Health 03/06/25 documented as of this encounter
--- OUTSIDE RECORDS SUMMARY | 2025-05-06 13:42 | XMS_ITS | CCD ---
Author Organization [facility] CliniSynm Care Team Providers Care Rn Utilization Management Um Name Role Phone PHYSICIAN, DEFAULT Admitting Unavailable [...] Physician Shaikh Main MD Primary Care Provider [phone] Ron Palomares Attending Unavailable Segun HOLLOWAY Attending Unavailable Segun HOLLOWAY Attending Unavailable MD Tyson Collazo Attending Provider Molina De Anda MD Primary Care Provider Groves CONSTRUCTION EQUIPMENT MECHANIC HELPER, Angel Luis Unavailable [place] CONSTRUCTION EQUIPMENT MECHANIC HELPER, Angel Luis Unavailable [phone] Arun PMHNP-, Eunice Unavailable [phone] No Pcp, No Pcp Primary Care Provider UnavailRohan Crooks LPC Unavailable Unavailable Meek WELLER, Flores Gutierrez Attending Unavailable Meek WELLER, Flores Gutierrez Attending Unavailable Shun Arshad MD Attending Provider Pascale Arana Primary Care Provider Molina De Anda MD Primary Care Provider Germain CONSTRUCTION EQUIPMENT MECHANIC HELPER, Angel Luis Unavailable SHELIA MUNIZ Attending Unavailable NO PCP, NO [...] MD Attending Provider Pascale Ochoa Attending Provider Shun Arshad Attending Unavailable Shun Arshad Admitting Unavailable Pascale Arana Primary Care Unavailable Allergies Allergy Classification Reported Allergen(s) Allergy Type Date of Onset Reaction(s) Facility (5 sources) penciclovir; Translations: [penciclovir] Drug Allergy 5 [facility] (9 sources) Penicillins; Translations: [PENICILLINS] Drug allergy (disorder) 4 [facility] (20 sources) Penicillin G Drug Allergy 3 Unknown [facility] (20 sources) Penicillins Propensity to adverse reactions 3 [facility] (4 sources) Penicillins Propensity to adverse reactions to drug 3 [facility] Work Phone: (1 source) Penicillins Drug allergy (disorder) 5 [facility] Repository Medications Current Medications Medication Drug Class(es) Dates Sig (Normalized) Sig (Original) [id number] 200 actuat albuterol 0.09 mg/actuat metered dose [...] 90 tablet 0 08/28/2023 11/26/2023 Active Citalopram [place] bromide Active hyoscyamine sulfate 0.125 mg [...] 01/06/2025 Discontinued (Therapy completed) polyethylene glycol 3350 37402 mg powder for oral solution (9 sources) [...] given by office. 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; Translations: [OTH RADIOGRAPHIC TECHNOLOGIST CURRENT DRUG THERAPY] Onset: 2 Episodic Other [...] WITH AUTO DIFFon BASOPHILS ABSOLUTE AUTO 0.1 [facility] Basophils/100 WBC (Bld) 1.2 % 0.2 - 2.0 % [facility] Eosinophils/100 WBC (Bld) 7.9 % High 0.9 - 7.0 % [facility] Erythrocyte distribution width (RBC) [Ratio] 15.3 % High 11.0 - 15.0 % [facility] Hematocrit (Bld) [Volume fraction] 37.2 % 36.0 - 48.0 % [facility] Hemoglobin (Bld) [Mass/Vol] 11.8 g/dL Low 12.0 - 16.0 g/dL [facility] IMMATURE GRANULOCYTES ABS AUTO 0.02 [facility] Immature granulocytes/100 WBC (Bld) 0.3 % 0.0 - 0.5 % [facility] Interpretation and review of laboratory results Abnormal [facility] LYMPHOCYTES ABSOLUTE AUTO 2.3 [facility] Lymphocytes/100 WBC (Bld) 35.2 % 20.5 - 60.0 % [facility] MCH (RBC) [Entitic mass] 31.1 pg 26.7 - 34.0 pg [facility] MCHC (RBC) [Mass/Vol] 31.7 g/dL 29.9 - 35.2 g/dL [facility] MCV (RBC) [Entitic vol] 98.2 fL 81.0 - 99.0 fL [facility] MONOCYTES ABSOLUTE AUTO 0.4 [facility] Monocytes/100 WBC (Bld) 5.5 % 1.7 - 12.0 % [facility] NEUTROPHILS ABSOLUTE AUTO 3.3 [facility] Neutrophils/100 WBC (Bld) 49.9 % 43.0 - 75.0 % [facility] Platelet mean volume (Bld) [Entitic vol] 10 fL 9.5 - 13.5 fL [facility]H EO # 0.5 [facility]H PLT 255 [facility] RBC 3.79 [facility] WBC 6.6 [facility] SEGMENTAL BLOOD PRESSUREon 0 02-27-2025 [place] [address] Cardiology Report Signed Patient: TALIA RUTHERFORD MR#: [id number] : 1970 Acct:[id number] Age/Sex: 54 / F ADM Date: 02/26/25 Loc: CARD Attending Dr: Kajal LAZAR Ordering Physician: Kajal Escobedo Date of Service: 02/26/25 Procedure(s): CA segmental UE or LE PONCE Accession Number(s): [id number] cc: Pascale Arana NP; Kajal Escobedo [facility] Test Date: 2025-02-26 Pat Name: TALIA RUTHERFORD Department: Room: - 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 Interpretive Statements [...] 02/27/25 0907 02/27/25 0907 DD/ 1534 TD/TT: Funeral Counselor: [facility] Radiology, Radiolograndall mancia MD - 02/27/2025 [place] [address] Cardiology Report Signed Patient: TALIA RUTHERFORD MR#: [id number] : 1970 Acct:[id number] Age/Sex: 54 / F ADM Date: 02/26/25 Loc: CARD Attending Dr: Kajal LAZAR Ordering Physician: Kajal Escobedo Date of Service: 02/26/25 Procedure(s): CA segmental UE or LE PONCE Accession Number(s): [id number] cc: Pascale Arana NP; Kajal Escobedo [facility] Test Date: 2025-02-26 Pat Name: TALIA RUTHERFORD Department: Room: - 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 Interpretive Statements [...] 02/27/25 0907 02/27/25 0907 DD/ 1534 TD/TT: Funeral Counselor: CHERYL Montero SEGMENTAL BLOOD PRESSUREOrde red By: Radiologist Radiology on 02-27-2025 [facility] [employer] Work Phone: SEGMENTAL BLOOD PRESSUREon 0 02-26-2025 Radiology Study observation (narrative) [facility] XR FOOT LT MIN 3Von 02-20-20 [place] [address] XRay Report Signed Patient: TALIA RUTHERFORD MR#: [id number] : 1970 Acct:[id number] Age/Sex: 54 / F ADM Date: 02/19/25 Loc: KAI Attending Dr: Kajal LAZAR Ordering Physician: Kajal Escobedo Date of Service: 02/19/25 Procedure(s): XR foot LT min 3V Accession Number(s): [id number] cc: Pascale Arana CONSTRUCTION EQUIPMENT MECHANIC HELPER; Kajal Escobedo [place] [address] Patient Name: TALIA RUTHERFORD MRN: [facility]:[id number] date: 1970 Sex: F Assigned Patient Location: [facility] Current Patient Location: [facility] Accession/Order Number: [id number] Exam Date: 02/19/2025 10:39 Report Date: 02/19/2025 [...] Jr. DConsueloOConsuelo 02/19/2025 3:03 PM Dictation Location: [place] [address] Electronically authenticated by: [id number] Y Date: 02/19/2025 15:03 Dictated By: Merlin Massey M.D. Signed By: 02/19/25 1506 DD/ 1503 TD/TT: Funeral Counselor: [facility] Lisa Hong MD - 02/19/2025 [place] [address] XRay Report Signed Patient: TALIA RUTHERFORD MR#: [id number] : 1970 Acct:[id number] Age/Sex: 54 / F ADM Date: 02/19/25 Loc: RAD Attending Dr: Kajal LAZAR Ordering Physician: Kajal Escobedo Date of Service: 02/19/25 Procedure(s): XR foot LT min 3V Accession Number(s): [id number] cc: Pascale Arana CONSTRUCTION EQUIPMENT MECHANIC HELPER; Kajal Escobedo [place] [id number] Patient Name: TALIA RUTHERFORD MRN: [facility]:[id number] date: 1970 Sex: F Assigned Patient Location: [facility] Current Patient Location: [facility] Accession/Order Number: [id number] Exam Date: 02/19/2025 10:39 Report Date: 02/19/2025 [...] Jr., DConsueloOConsuelo 02/19/2025 3:03 PM Dictation Location: [place] [address] Electronically authenticated by: [id number] Y Date: 02/19/2025 15:03 Dictated By: Merlin Massey M.D. Signed By: 02/19/25 1506 DD/ 1503 TD/TT: Funeral Counselor: [facility] Radiology Study observation (narrative) [facility] XR FOOT LT MIN 3VOrdered By: Radiologist Radiology on 02-19-2025 [facility] [employer] Work Phone: MR Cervical spine WO contras ton 02-05-2025 [place] [address] Magnetic Resonance Report Signed Patient: TALIA RUTHERFORD MR#: [id number] : 1970 Acct:[id number] Age/Sex: 54 / F ADM Date: 02/04/25 Loc: MRI Attending Dr: Flores Eden M.D. Ordering Physician: Flores Eden M.D. Date of Service: 02/04/25 Procedure(s): MR cervical spine wo con Accession Number(s): [id number] cc: Pascale Arana CONSTRUCTION EQUIPMENT MECHANIC HELPER; Flores Eden M.D. [place] [address] Patient Name: TALIA RUTHERFORD MRN: [id number]:[id number] date: 1970 Sex: F Assigned Patient Location: MRI Current Patient Location: Accession/Order Number: [id number] Exam Date: 02/05/2025 12:10 Report Date: 02/05/2025 [...] Uncovertebral spurring greatest right. Moderate right and ymir-zh-hlktmzpy left-sided neural foraminal narrowing. Mild canal narrowing. C5-6: Broad-based disc bulge with uncovertebral spurring, greatest left. Moderate right-sided moderate to severe left-sided neural foraminal narrowing. Mild central canal stenosis. C6-C7: Broad-based disc osteophyte complex with uncovertebral spurring. Dohe-oo-wpaadxvc right moderate severe left neural foraminal narrowing. Dbgr-cw-htaqfvnm canal narrowing. C7-T1: Minimal vertebral hypertrophy. Moderate facet arthropathy. Canal and patent. Mild foraminal narrowing. MR/MR cervical spine wo con IMPRESSION: Overall multilevel degenerative changes with up to scrw-cc-eyyhkocn central canal narrowing. Multilevel foraminal encroachment as noted above. Impression dictated by: Mushtaq Antony M.D. 02/05/2025 12:16 PM Dictation Location: [place] [address] Electronically authenticated by: [id number] Y Date: 02/05/2025 12:16 Dictated By: Mushtaq Antony M.D. Signed By: 02/05/25 1218 DD/ 1216 TD/TT: Funeral Counselor: [facility] Radiology, Radiologi MD blanche - 02/05/2025 [place] [address] Magnetic Resonance Report Signed Patient: TALIA RUTHERFORD MR#: [id number] : 1970 Acct:[id number] Age/Sex: 54 / F ADM Date: 02/04/25 Loc: MRI Attending Dr: Flores Eden M.D. Ordering Physician: Flores Eden M.D. Date of Service: 02/04/25 Procedure(s): MR cervical spine wo con Accession Number(s): [id number] cc: Pascale Arana CONSTRUCTION EQUIPMENT MECHANIC HELPER; Flores Eden M.D. The [place] [address] Patient Name: TALIA RUTHERFORD MRN: [facility]:[id number] date: 1970 Sex: F Assigned Patient Location: MRI Current Patient Location: Accession/Order Number: [id number] Exam Date: 02/05/2025 12:10 Report Date: 02/05/2025 [...] Uncovertebral spurring greatest right. Moderate right and ffdh-vq-mlzaitht left-sided neural foraminal narrowing. Mild canal narrowing. C5-6: Broad-based disc bulge with uncovertebral spurring, greatest left. Moderate right-sided moderate to severe left-sided neural foraminal narrowing. Mild central canal stenosis. C6-C7: Broad-based disc osteophyte complex with uncovertebral spurring. Uqvq-du-kkuiofbf right moderate severe left neural foraminal narrowing. Zexz-xk-sdjjmorq canal narrowing. C7-T1: Minimal vertebral hypertrophy. Moderate facet arthropathy. Canal and patent. Mild foraminal narrowing. MR/MR cervical spine wo con IMPRESSION: Overall multilevel degenerative changes with up to fore-jz-jqgphwnd central canal narrowing. Multilevel foraminal encroachment as noted above. Impression dictated by: Mushtaq Antony M.D. 02/05/2025 12:16 PM Dictation Location: [place] [address] Electronically authenticated by: [id number] Y Date: 02/05/2025 12:16 Dictated By: Mushtaq Antony M.D. Signed By: 02/05/25 1218 DD/ TD/TT: Funeral Counselor: [facility] Radiology Study observation (narrative) [facility] MR Cervical spine WO contras tOrdered By: Radiologist Radiology on 02-05-2025 [facility] [employer] Work Phone: MR [place] [address] Magnetic Resonance Report Signed Patient: TALIA RUTHERFORD MR#: [id number] : 1970 Acct:[id number] Age/Sex: 54 / F ADM Date: 02/04/25 Loc: MRI Attending Dr: Flores Eden M.D. Ordering Physician: Flores Eden M.D. Date of Service: 02/04/25 Procedure(s): MR lumbar spine wo con Accession Number(s): [id number] cc: Pascale Arana CONSTRUCTION EQUIPMENT MECHANIC HELPER; Flores Eden M.D. [place] [address] Patient Name: TALIA RUTHERFORD MRN: [id number]:[id number] date: 1970 Sex: F Assigned Patient Location: MRI Current Patient Location: Accession/Order Number: [id number] Exam Date: 02/05/2025 12:16 Report Date: 02/05/2025 [...] Circumferential disc bulge with moderate facet arthropathy. Enaf-nd-zcrguzhj right-sided and mild left-sided neural foraminal narrowing . 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 Impression dictated by: Mushtaq Antony M.D. 02/05/2025 2:18 PM Dictation Location: [place] [address] Electronically authenticated by: [id number] Y Date: 02/05/2025 14:18 Dictated By: Mushtaq Antony M.D. Signed By: 02/05/25 1421 DD/ 1418 TD/TT: Funeral Counselor: [facility] Radiology, Radiolograndall mancia MD - 02/05/2025 [place] [address] Magnetic Resonance Report Signed Patient: TALIA RUTHERFORD MR#: [id number] : 1970 Acct:[id number] Age/Sex: 54 / F ADM Date: 02/04/25 Loc: MRI Attending Dr: Flores Eden M.D. Ordering Physician: Flores Eden M.D. Date of Service: 02/04/25 Procedure(s): MR lumbar spine wo con Accession Number(s): [id number] cc: Pascale Arana NP; Flores Eden M.D. The [address] [address] Patient Name: TALIA RUTHERFORD MRN: [facility]:[id number] date: 1970 Sex: F Assigned Patient Location: MRI Current Patient Location: Accession/Order Number: [id number] Exam Date: 02/05/2025 12:16 Report Date: 02/05/2025 [...] Circumferential disc bulge with moderate facet arthropathy. Wwiu-yy-mtbsgnbi right-sided and mild left-sided neural foraminal narrowing . 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 Impression dictated by: Mushtaq Antony M.D. 02/05/2025 2:18 PM Dictation Location: [place] [address] Electronically authenticated by: [id number] Y Date: 02/05/2025 14:18 Dictated By: Mushtaq Antony M.D. Signed By: 02/05/25 1421 DD/ 1418 TD/TT: Funeral Counselor: [facility] Radiology Study observation (narrative) [facility] MR LUMBAR SPINE WO CONOrdere d By: Radiologist Radiology on 02-05-2025 [facility] Work Phone: ALL CBC WITH AUTO DIFFon BASOPHILS ABSOLUTE AUTO 0.1 [facility] Basophils/100 WBC (Bld) 1 % 0.2 - 2.0 % [facility] Eosinophils/100 WBC (Bld) 6.9 % 0.9 - 7.0 % [facility] Erythrocyte distribution width (RBC) [Ratio] 15.6 % High 11.0 - 15.0 % [facility] Hematocrit (Bld) [Volume fraction] 36.2 % 36.0 - 48.0 % [facility] Hemoglobin (Bld) [Mass/Vol] 11.8 g/dL Low 12.0 - 16.0 g/dL [facility] IMMATURE GRANULOCYTES ABS AUTO 0.01 [facility] Immature granulocytes/100 WBC (Bld) 0.2 % 0.0 - 0.5 % [facility] Interpretation and review of laboratory results Abnormal [facility] LYMPHOCYTES ABSOLUTE AUTO 1.9 [facility] Lymphocytes/100 WBC (Bld) 32 % 20.5 - 60.0 % [facility] MCH (RBC) [Entitic mass] 28.6 pg 26.7 - 34.0 pg [facility] MCHC (RBC) [Mass/Vol] 32.6 g/dL 29.9 - 35.2 g/dL [facility] MCV (RBC) [Entitic vol] 87.9 fL 81.0 - 99.0 fL [facility] MONOCYTES ABSOLUTE AUTO 0.3 [facility] Monocytes/100 WBC (Bld) 5.4 % 1.7 - 12.0 % [facility] NEUTROPHILS ABSOLUTE AUTO 3.3 [facility] Neutrophils/100 WBC (Bld) 54.5 % 43.0 - 75.0 % [facility] Platelet mean volume (Bld) [Entitic vol] 9.6 fL 9.5 - 13.5 fL [facility] TB EO # 0.4 [facility] TB PLT 273 [facility] RBC 4.12 Low [facility] TB WBC 6.1 [facility] IGP,APTIMA HPV,AGE GDLNon AGE GDLN ACOG TESTING Note . [facility] Comment on above: TESTS RESULT FLAG UN ITS REF RANGE LAB Clinician Provided Cytology Information Source.............Cervix;Endocervix No. of containers..01 ThinPrep Vial Age Radha JEAN Fiorella... 3065 FLAG LEGEND: L-Low Normal,H-High Normal,LL-Alert Low,HH-Alert High <-Panic Low,>-Panic High,A-Abnormal,AA-Critical Abnormal Performed at: 01 =[address] [address] Monika Norton MD, HPV APTIMA Positive Abnormal Negative [facility] Comment on above: This nucleic acid am plification test detects fourteen high- risk HPV types (16,18,31,33,35,39,45,51,52,56,58,59,66,68) without differentiation. HPV GENOTYPE 16 Negative Negative [facility] HPV GENOTYPE 18,45 Negative Negative [facility] Healthcare Comment on above: Performed at: =G - L [address] [id number] Rn Wound Care: Monika Norton MD, Phone: [phone] Performed at: [address] [id number] Rn Wound Care: Monika Norton MD, Phone: [phone] IGP, APTIMA HPV, RFX 16/18,45 Note . [facility] Healthcare Comment on above: TESTS RESULT FLAG UN ITS REF RANGE LAB DIAGNOSIS: 02 NEGATIVE FOR INTRAEPITHELIAL LESION OR MALIGNANCY. Specimen adequacy: 02 Satisfactory for evaluation. Endocervical and/or squamous metaplastic cells (endocervical component) are present. Performed by: 02 Carrol Guerrero Telephone Assembler . 02 Note: Note 02 The Pap [...] <-Panic Low,>-Panic High,A-Abnormal,AA-Critical Abnormal Performed at: [address] [address] Monika Norton MD, Interpretation and review of laboratory results Abnormal [facility] BRUSH-ALONE CERVIX ENDOCERVIX [facility]IN[facility] MM TOMOSYNTHESIS SCREENING B Ion 10-23-[address] [address] Mammography Report Signed Patient: TALIA RUTHERFORD MR#: [id number] : 1970 Acct:[id number] Age/Sex: 54 / F ADM Date: 10/23/24 Loc: MAMMO Attending Dr: Pascale Arana NP Ordering Physician: Pascale Arana NP Results: Date of Service: 10/23/24 Follow Up: Procedure(s): MM tomosynthesis screening BI Accession Number(s): [id number] cc: Pascale Arana NP Patient Name: TALIA RUTHERFORD MR#: [id number] : 1970 Exam Date: 10/23/2024 Ordering Doctor: [...] breast cancer at age 51. LOCATION: [facility] BREAST COMPOSITION: There are scattered [...] Signed By: 10/23/24 1555 DD/ 1555 TD/TT: Funeral Counselor: [facility] Radiology Radiolograndall mancia MD - 10/23/2024 [place] [address] Mammography Report Signed Patient: TALIA RUTHERFORD MR#: [id number] : 1970 Acct:[id number] Age/Sex: 54 / F ADM Date: 10/23/24 Loc: MAMMO Attending Dr: Pascale Arana NP Ordering Physician: Pascale Arana NP Results: Date of Service: 10/23/24 Follow Up: Procedure(s): MM tomosynthesis screening BI Accession Number(s): [id number] cc: Pascale Arana NP Patient Name: TALIA RUTHERFORD MR#: [id number] : 1970 Exam Date: 10/23/2024 Ordering Doctor: [...] breast cancer at age 51. LOCATION: [facility] BREAST COMPOSITION: There are scattered [...] Signed By: 10/23/24 1555 DD/ 54 TD/TT: Funeral Counselor: [facility] Radiology Study observation (narrative) [facility] MM TOMOSYNTHESIS SCREENING B IOrdered By: Radiologist Radiology on 10-23-2024 [facility] Work Phone: ALL CBC WITH AUTO DIFFon BASOPHILS ABSOLUTE AUTO 0 [facility] Basophils/100 WBC (Bld) 0.8 % 0.2 - 2.0 % [facility] Eosinophils/100 WBC (Bld) 3.9 % 0.9 - 7.0 % [facility] Erythrocyte distribution width (RBC) [Ratio] 14.2 % 11.0 - 15.0 % [facility] Hematocrit (Bld) [Volume fraction] 32.9 % Low 36.0 - 48.0 % [facility] Hemoglobin (Bld) [Mass/Vol] 10.6 g/dL Low 12.0 - 16.0 g/dL [facility] IMMATURE GRANULOCYTES ABS AUTO 0 [facility] Immature granulocytes/100 WBC (Bld) 0 % 0.0 - 0.5 % [facility] Interpretation and review of laboratory results [facility]normal [facility] LYMP[facility] ABSOLUTE AUTO 1.6 [facility] Lymphocytes/100 WBC (Bld) 31.7 % 20.5 - 60.0 % [facility] MCH (RBC) [Entitic mass] 29.5 pg 26.7 - 34.0 pg [facility] MCHC (RBC) [Mass/Vol] 32.2 g/dL 29.9 - 35.2 g/dL [facility] MCV (RBC) [Entitic vol] 91.6 fL 81.0 - 99.0 fL [facility] MONOCYTES ABSOLUTE AUTO 0.4 [facility] Monocytes/100 WBC (Bld) 7.2 % 1.7 - 12.0 % [facility] NEUTROPHILS ABSOLUTE AUTO 2.8 [facility] Neutrophils/100 WBC (Bld) 56.4 % 43.0 - 75.0 % [facility] Platelet mean volume (Bld) [Entitic vol] 10.5 fL 9.5 - 13.5 fL [facility] TBH EO # 0.2 [facility] TBH PLT 199 [facility] TBH RBC 3.59 Low [facility] TBH WBC 4.9 [facility] CT FOOT LT WO CONon 09-09-[address] [place] [address] CT Scan Report Signed Patient: TALIA RUTHERFORD MR#: [id number] : 1970 Acct:[id number] Age/Sex: 54 / F ADM Date: 09/09/24 Loc: CT Attending Dr: Tawana Foster D.P.M. Ordering Physician: Tawana Fsoter D.P.M. Date of Service: 09/09/24 Procedure(s): CT foot LT wo con Accession Number(s): [id number] cc: ANGEL LUIS GROVES [address] [address] Patient Name: TALIA RUTHERFORD MRN: [facility]:[id number] date: 1970 Sex: F Assigned Patient Location: CT Current Patient Location: CT Accession/Order Number: [id number] Exam Date: 09/09/2024 15:56 Report Date: 09/09/2024 [...] Signed By: 09/09/24 1742 DD/ 1739 TD/TT: Funeral Counselor: Lisa Marmolejo MD - 09/09/[address] [address] [address] Scan Report Signed Patient: TALIA RUTHERFORD MR#: [id number] : 1970 Acct:[id number] Age/Sex: 54 / F ADM Date: 09/09/24 Loc: CT Attending Dr: Tawana Foster D.P.M. Ordering Physician: Tawana Foster D.P.M. Date of Service: 09/09/24 Procedure(s): CT foot LT wo con Accession Number(s): [id number] cc: ANGEL LUIS GROVES The [address] [address] Patient Name: TALIA RUTHERFORD MRN: [facility]:[id number] date: 1970 Sex: F Assigned Patient Location: CT Current Patient Location: CT Accession/Order Number: [id number] Exam Date: 09/09/2024 15:56 Report Date: 09/09/2024 [...] Signed By: 09/09/24 1742 DD/ 1739 TD/TT: Funeral Counselor: [facility] Radiology Study observation (narrative) [facility] CT FOOT LT WO CONOrdered By: Radiologist Radiology on 09-09-2024 [facility] Work Phone: XR FOOT LT MIN 3Von 09-05-19 [place] [address] XRay Report Signed Patient: TALIA RUTHERFORD MR#: [id number] : 1970 Acct:[id number] Age/Sex: 54 / F ADM Date: 09/04/24 Loc: EC Attending Dr: Tawana Foster D.P.M. Ordering Physician: Tawana Foster D.P.M. Date of Service: 09/04/24 Procedure(s): XR foot LT min 3V Accession Number(s): [id number] cc: NASH GROVES Peter D.P.M. The [place] [address] Patient Name: TALIA RUTHERFORD MRN: [facility]:[id number] date: 1970 Sex: F Assigned Patient Location: Current Patient Location: Accession/Order Number: [id number] Exam Date: 09/04/2024 15:53 Report Date: 09/05/2024 [...] Signed By: 09/05/24 1019 DD/ 1016 TD/TT: Funeral Counselor: [facility] Radiology, Radiologi MD blanche - 09/05/2024 [place] [address] XRay Report Signed Patient: TALIA RUTHERFORD MR#: [id number] : 1970 Acct:[id number] Age/Sex: 54 / F ADM Date: 09/04/24 Loc: EC Attending Dr: Tawana Foster D.P.M. Ordering Physician: Tawana Foster D.P.M. Date of Service: 09/04/24 Procedure(s): XR foot LT min 3V Accession Number(s): [id number] cc: ANGEL LUIS GROVES; Tawana Foster D.P.M. The [place] [address] Patient Name: TALIA RUTHERFORD MRN: [facility]:[id number] date: 1970 Sex: F Assigned Patient Location: Current Patient Location: Accession/Order Number: [id number] Exam Date: 09/04/2024 15:53 Report Date: 09/05/2024 [...] Signed By: 09/05/24 1019 DD/ 1016 TD/TT: Funeral Counselor: [facility] Radiology Study observation (narrative) [facility] XR FOOT LT MIN 3VOrdered By: Radiologist Radiology on 09-05-2024 [facility] Work Phone: CHRONIC WOUND/ULCER (HTRX)on 08-14-2024 [facility] (CHRONIC WOUND/ULCER) 0 [facility] Healthcare ACINETOBACTER BAUMANNII (CHRONIC WOUND/ULCER) Not detected [facility] BACTEROIDES FRAGILIS, VULGATUS (CHRONIC WOUND/ULCER) 0 [facility] BACTEROIDES FRAGILIS, VULGATUS (CHRONIC WOUND/ULCER) Not detected [facility] CITROBACTER FREUNDII (CHRONIC WOUND/ULCER) 0 [facility] CITROBACTER FREUNDII (CHRONIC WOUND/ULCER) Not detected [facility] CLOSTRIDIUM PERFRINGENS, NOVYI, SEPTICUM (CHRONIC WOUND/ULCER) 0 [facility] CLOSTRIDIUM PERFRINGENS, NOVYI, SEPTICUM (CHRONIC WOUND/ULCER) Not detected [facility] CORYNEBACTERIUM JEIKEIUM, STRIATUM, TUBERCULOSTEARICUM [...] EPIDERMIDIS, HAEMOLYTICUS, LUGDUNENSIS, SAPROPHYTICUS (CHRON Detected Abnormal [facility] STREPTOCOCCUS PYOGENES (GROUP A STREP) (CHRONIC WOUND/ULCER) 0 [facility] STREPTOCOCCUS PYOGENES (GROUP A STREP) (CHRONIC WOUND/ULCER) Not detected [facility] VARICELLA ZOSTER VIRUS (HUMAN HERPESVIRUS 3) (CHRONIC WOUND/ULCER) 0 [facility] VARICELLA ZOSTER VIRUS (HUMAN HERPESVIRUS 3) (CHRONIC WOUND/ULCER) Not detected [facility] VIBRIO CHOLERAE, PARAHAEMOLYTICUS, VULNIFICUS (CHRONIC WOUND/ULCER) 0 [facility] VIBRIO CHOLERAE, PARAHAEMOLYTICUS, VULNIFICUS (CHRONIC WOUND/ULCER) Not detected [facility] ALL CBC WITH AUTO DIFFon BASOPHILS ABSOLUTE AUTO 0 [facility] Basophils/100 WBC (Bld) 0.6 % 0.2 - 2.0 % [facility] Eosinophils/100 WBC (Bld) 0 % Low 0.9 - 7.0 % [facility] Erythrocyte distribution width (RBC) [Ratio] 13.6 % 11.0 - 15.0 % [facility] Hematocrit (Bld) [Volume fraction] 37.4 % 36.0 - 48.0 % [facility] Hemoglobin (Bld) [Mass/Vol] 12.1 g/dL 12.0 - 16.0 g/dL [facility] IMMATURE GRANULOCYTES ABS AUTO 0.01 [facility] Immature granulocytes/100 WBC (Bld) 0.2 % 0.0 - 0.5 % [facility] Interpretation and review of laboratory results Abnormal [facility] LYMPHOCYTES ABSOLUTE AUTO 1.1 Low [facility] Lymphocytes/100 WBC (Bld) 19.9 % Low 20.5 - 60.0 % [facility] MCH (RBC) [Entitic mass] 29.4 pg 26.7 - 34.0 pg [facility] MCHC (RBC) [Mass/Vol] 32.4 g/dL 29.9 - 35.2 g/dL [facility] MCV (RBC) [Entitic vol] 91 fL 81.0 - 99.0 fL [facility] MONOCYTES ABSOLUTE AUTO 0.2 Low [facility] Monocytes/100 WBC (Bld) 4.2 % 1.7 - 12.0 % [facility] NEUTROPHILS ABSOLUTE AUTO 4.1 [facility] Neutrophils/100 WBC (Bld) 75.1 % High 43.0 - 75.0 % [facility] Platelet mean volume (Bld) [Entitic vol] 9.7 fL 9.5 - 13.5 fL [facility] EO # 0 [facility] TB PLT 256 [facility] TB RBC 4.11 Low [facility] TB WBC 5.4 [facility] Ambulatory Visit Summaryon 0 03-18-2024 Ambulatory [...] vaccine, inactivated - Not Given Patient Refuses [facility] Comment on above: Result Comment: Elec tronically Signed By: Jelani WELLER, Ron Valdovinos.br\Date and Time Signed: 03/18/24 15:21 EDT Outside Colonoscopyon 2023 Outside Colonoscopy [id number]#1.00TIFF [facility] Reminderson 07-20-2023 Reminders - From: Machelle Arauz LPN To: N - Clinical; Sent: 07/20/2023 10:55:11 EST Show up: 06/19/2033 07:00:00 EST Subject: colonoscopy recall Due Date/Time: 07/19/2033 07:00:00 EST Reminder/Recall Patient due for screening colonoscopy 07/19/2033. [facility] Lab Reportson 06-26-2023 Lab Reports [id number]#1.00TIFF [facility] Insurance Correspondenceon 08-09-2022 Insurance Correspondence [id number]#1.00TIFF [facility] Facesheeton 06-08-2023 Facesheet [id number]#1.00TIFF [facility] Physician Referralon 023 Physician Referral [id number]#1.00TIFF Ezequiel [facility] Ambulatory Visit Summaryon 1 08-07-2022 Ambulatory [...] for choosing us for your care. Normal [facility] Lab Reportson 05-31-2023 Lab Reports [id number]#1.00TIFF [facility] Consultation Noteon 05-25-20 23 Consultation Note [id number]#1.00TIFF [facility] Physician Referralon 023 Physician Referral [id number]#1.00TIFF [facility] Office Visiton 04-07-2023 Follow-up visit [id number] Norma Rutherford D 1970 Date Provider Department Center 04/07/2023 [id number] SHAH Family History Problem Relation Age of Onset Brain Aneurysm Mother 80 Diabetes Mother Heart failure Father 80 Diabetes Father Hypertension Father Diabetes Sister Family Status - Relation Status Age at Mother Father Sister Level of Service:45006 [place] OFFICE/OUTPATIENT ESTABLISHED MOD MDM 30-39 MIN Normal [facility] 36on 02-08-2023 36 TB lab called to re port critical HGB and hematocrit for patient: HGB was 5.1 and hematocrit is 18.9. I spoke with Talia and advised she go to the ED. She verbalized understanding and will do so. Normal [facility] Office Visiton 02-08-2023 Follow-up visit [id number] Norma Rutherford 1970 Provider Department Center 02/08/2023 [id number] SHAH Family History Problem Relation Age of Onset Brain Aneurysm Mother 80 Diabetes Mother Heart failure Father 80 Diabetes Father Hypertension Father Diabetes Sister Family Status - Relation Status Age at Mother Father Sister Level of Service:98948 [place] OFFICE/OUTPATIENT NEW MODERATE MDM 45-59 MINUTES Reason for Visit and Comments: Establish Care [42] - Swelling in both legs,right leg is itching and painful Shortness of Breath [465867] Dizziness [831648] Fatigue [46] Normal [facility] PREG HCG QUALon 03-10-2022 , QUAL Negative Normal NEGATIVE [facility] Comment on above: Performed By: #### P REG ####[facility] [address] [id number]. Moni Johnson Covid-19 PCR (CVDTB)on 02-21 SARS-CoV-2 (COVID-19) RNA EMMANUEL+probe Ql (Unsp spec) Not detected Normal NOT DETECTED [facility] Comment on above: Result Comment: This test is not yet approved or cleared by the [place] FDA. When there are no FDA-approved or cleared tests available, and other criteria are met, FDA can make tests available under an emergency access mechanism called an Emergency Use Authorization (EUA). The EUA for this test is supported by the [place] of Health and Human Service's (HHS's) declaration [...] SARS-CoV-2. Performed By: #### C VDTBH #### [facility] [id number] Moni Johnson PROF CHEM 8 (BAS METB)on Anion gap [Moles/Vol] 9.0 mmol/L Normal [facility] Comment on above: Performed By: #### B MP ####[facility] [address] [id number]. Moni Johnson Calcium [Mass/Vol] 8.3 mg/dL Critically low 8.5-10.1 Th e [facility] Comment on above: Performed By: #### B MP ####[facility] [address] [id number]. Moni Johnson Chloride [Moles/Vol] 106 mmol/L Normal 98-107 [facility] Comment on above: Performed By: #### B MP ####[facility] [address] [address]Dr. Moni Alex CO2 [Moles/Vol] 29.2 mmol/L Normal 21.0-32.0 [facility] Comment on above: Performed By: #### B MP ####[facility] [address] [address]Dr. Angelinemaria a Alex Creatinine [Mass/Vol] 0.78 mg/dL Normal 0.55-1.02 [facility] Comment on above: Performed By: #### B MP ####[facility] [address] [place], [place] [address]Dr. Angelinemaria a Alex EGFR-AF KUWAITI >60 Normal >=60 [facility] Comment on above: Performed By: #### B MP ####[facility] [address] [place], [place] [address]Dr. Moni Johnson EGFR-NON AF [place]I >60 Normal >=60 [facility] Comment on above: Performed By: #### B MP ####[facility] [address] [place], [place] [address]Dr. Moni Johnson Glucose [Mass/Vol] 88 mg/dL Normal 74-106 [facility] Comment on above: Performed By: #### B MP ####[facility] [address] [place], [place] [address]Dr. Moni Johnson Potassium [Moles/Vol] 4.2 mmol/L Normal 3.5-5.1 [facility] Comment on above: Performed By: #### B MP ####[facility] [address] [address]Dr. Moni Johnson Sodium [Moles/Vol] 140 mmol/L Normal 136-145 [facility] Comment on above: Performed By: #### B MP ####[facility] [address] [place], [place] [address]Dr. Moni Johnson Urea nitrogen [Mass/Vol] 21.0 mg/dL Critically high 7.0-18.0 [facility] Comment on above: Performed By: #### B MP ####[facility] [address] [place], [place] [address]He. Moni Johnson Urea nitrogen/Creatinine [Mass ratio] 26.9 mg/mg Normal [facility] Comment on above: Performed By: #### B MP ####[facility] [address] [place], [place] [address]Ut. Moni Johnson CT FOOT LT WO CONon [...] ELLIOT JOSE Date: 2022-02-22 18:32 Normal [facility] COVID Quick Testingon 2021 Result Negative [place] Other Quick Fluon 08-30-2021 FLUAV Ab CF (S) [Titer] Negative [place] Other FLUBV Ab CF (S) [Titer] Negative [place] Other Covid-19 PCR ([facility])on 05-24 SARS-CoV-2 (COVID-19) RNA EMMANUEL+probe Ql (Unsp spec) Not detected Normal NOT DETECTED [facility] Comment on above: Result Comment: This test is not yet approved or cleared by the [place] FDA. When there are no FDA-approved or cleared tests available, and other criteria are met, FDA can make tests available under an emergency access mechanism called an Emergency Use Authorization (EUA). The EUA for this test is supported by the [place] of Health and Human Service's (HHS's) declaration [...] consistent with SARS-CoV-2. Performed By: #### C [facility] #### [facility] [address] [place] [address] Dr. Moni Johnson Vital Signs Date Time Vital Sign Value Performing Clinician Facility 04-30-2025 16:44-0400 Body height 165.1 cm Pascaleeric Herreraz [employer]STRUCTION EQUIPMENT MECH[employer]IC HELPER-C Work Phone: [facility] 04-30-2025 16:44-0400 Body mass index (BMI) [Ratio] 29.3 kg/m2 Pascaleeric Lastholz CONSTRUCTION EQUIPMENT MECHANIC HELPER-C Work Phone: [facility] 04-30-2025 16:44-0400 Body temperature 97 [degF] Pascaleeric Lastholz CONSTRUCTION EQUIPMENT MECHANIC HELPER-C Work Phone: [facility] 04-30-2025 16:44-0400 Body weight 80.08 kg Pascaleeric Lastholz CONSTRUCTION EQUIPMENT MECHANIC HELPER-C Work Phone: [facility] 04-30-2025 16:44-0400 Diastolic blood pressure 60 mm[Hg] Pascale Shalaholz CONSTRUCTION EQUIPMENT MECHANIC HELPER-C Work Phone: [facility] 04-30-2025 16:44-0400 Heart rate 65 /min Pascale Javierz [employer]STRUCTION EQUIPMENT MECHANIC HELPER-C Work Phone: [facility] 04-30-2025 16:44-0400 Respiratory rate 16 /min Pascaleeric Mezakendall CONSTRUCTION EQUIPMENT MECHANIC HELPER-C Work Phone: [facility] 04-30-2025 16:44-0400 SaO2% (BldA) [Mass fraction] 99 % Pascaleeric Mezakendall CONSTRUCTION EQUIPMENT MECHANIC HELPER-C Work Phone: [facility] 04-30-2025 16:44-0400 Systolic blood pressure 96 mm[Hg] Pascaleeric Mezakendall CONSTRUCTION EQUIPMENT MECHANIC HELPER-C Work Phone: [facility] 04-02-2025 14:57-0400 Body height 166.4 cm Jovon Asif MD Work Phone: [facility] 04-02-2025 14:57-0400 Body mass index (BMI) [Ratio] 28.94 kg/m2 Jovon Asif MD Work Phone: [facility] 04-02-2025 14:57-0400 Body weight 80.11 kg Jovon Asif MD Work Phone: [facility] 04-02-2025 14:57-0400 Diastolic blood pressure 64 mm[Hg] Jovon Asif MD Work Phone: [facility] 04-02-2025 14:57-0400 Heart rate 83 /min Jovon Asif MD Work Phone: [facility] 04-02-2025 14:57-0400 Systolic blood pressure 98 mm[Hg] Jovon Asif MD Work Phone: [facility] [place] [facility] 03-25-2025 08:37-0400 Body height 165.1 cm Pascale Arana Work Phone: [facility] 03-25-2025 08:37-0400 Body mass index (BMI) [Ratio] 29.2 kg/m2 Pascale Arana Work Phone: [facility] 03-25-2025 08:37-0400 Body weight 79.6 kg Pascale Herreraz Work Phone: [facility] 02-25-2025 11:31-0400 Body mass index (BMI) [Ratio] 28.76 kg/m2 Pascaleeric Mezahholz CONSTRUCTION EQUIPMENT MECHANIC HELPER Work Phone: [facility] 02-25-2025 11:31-0400 Body temperature 97.81 [degF] Pascalereic Lastholz CONSTRUCTION EQUIPMENT MECHANIC HELPER Work Phone: [facility] 02-25-2025 11:31-0400 Body weight 78.38 kg Pascaleeric Mezahholz CONSTRUCTION EQUIPMENT MECHANIC HELPER Work Phone: [facility] 02-25-2025 11:31-0400 Diastolic blood pressure 64 mm[Hg] Pascale Shalaholz CONSTRUCTION EQUIPMENT MECHANIC HELPER Work Phone: [facility] 02-25-2025 11:31-0400 Heart rate 99 /min Pascaleeric Lastholz CONSTRUCTION EQUIPMENT MECHANIC HELPER Work Phone: [facility] 02-25-2025 11:31-0400 SaO2% (BldA) [Mass fraction] 97 % Pascale Derrickhholz CONSTRUCTION EQUIPMENT MECHANIC HELPER Work Phone: [facility] 02-25-2025 11:31-0400 Systolic blood pressure 102 mm[Hg] Pascaleeric Lastholz CONSTRUCTION EQUIPMENT MECHANIC HELPER Work Phone: [facility] 02-24-2025 15:01-0400 Body mass index (BMI) [Ratio] 28.79 kg/m2 Eunice Wallston PMHNP-BC Work Phone: [facility] 02-24-2025 15:01-0400 Body weight 78.47 kg Eunice Wallston PMHNP-BC Work Phone: [facility] 02-24-2025 15:01-0400 Diastolic blood pressure 62 mm[Hg] Eunice Dias PMHNP-BC Work Phone: [facility] 02-24-2025 15:01-0400 Heart rate 88 /min Eunice Dias PMHNP-BC Work Phone: [facility] 02-24-2025 15:01-0400 Systolic blood pressure 102 mm[Hg] Eunice Dias PMHNP-BC Work Phone: [facility] 02-06-2025 14:23-0400 Body height 166.4 cm Shelia Muniz DO Work Phone: [facility] 02-06-2025 14:23-0400 Body mass index (BMI) [Ratio] 28.51 kg/m2 Shelia Muniz DO Work Phone: [facility] 02-06-2025 14:23-0400 Body weight 78.93 kg Shelia Muniz DO Work Phone: [facility] 02-06-2025 14:23-0400 Diastolic blood pressure 80 mm[Hg] Shelia Muniz DO Work Phone: [facility] 02-06-2025 14:23-0400 Systolic blood pressure 108 mm[Hg] Shelia Muniz DO Work Phone: [facility] 01-22-2025 09:04-0400 Body mass index (BMI) [Ratio] 29.62 kg/m2 Eunice Dias PMHNP-BC Work Phone: [facility] 01-22-2025 09:04-0400 Body weight 80.74 kg Eunice Dias PMHNP-BC Work Phone: [facility] 01-22-2025 09:04-0400 Diastolic blood pressure 68 mm[Hg] Eunice Dias PMHNP-BC Work Phone: [facility] 01-22-2025 09:04-0400 Heart rate 78 /min Eunice Dias PMHNP-BC Work Phone: [facility] 01-22-2025 09:04-0400 Systolic blood pressure 112 mm[Hg] Eunice Dias PMHNP-BC Work Phone: [facility] 01-06-2025 16:32-0400 Body mass index (BMI) [Ratio] 29.99 kg/m2 Pascale Herreraz CONSTRUCTION EQUIPMENT MECHANIC HELPER Work Phone: [facility] 01-06-2025 16:32-0400 Body temperature 98.01 [degF] Pascale Shalaholz CONSTRUCTION EQUIPMENT MECHANIC HELPER Work Phone: [facility] 01-06-2025 16:32-0400 Body weight 81.74 kg Pascaleeric Lastholz CONSTRUCTION EQUIPMENT MECHANIC HELPER Work Phone: [facility] 01-06-2025 16:32-0400 Diastolic blood pressure 60 mm[Hg] Pascale Shalaholz CONSTRUCTION EQUIPMENT MECHANIC HELPER Work Phone: [facility] 01-06-2025 16:32-0400 Heart rate 82 /min Pascale Javierz CONSTRUCTION EQUIPMENT MECHANIC HELPER Work Phone: [facility] 01-06-2025 16:32-0400 Respiratory rate 18 /min Pascale Shalaholz CONSTRUCTION EQUIPMENT MECHANIC HELPER Work Phone: [facility] 01-06-2025 16:32-0400 SaO2% (BldA) [Mass fraction] 98 % Pascale Shalaholz CONSTRUCTION EQUIPMENT MECHANIC HELPER Work Phone: [facility] 01-06-2025 16:32-0400 Systolic blood pressure 110 mm[Hg] Pascale Shalaholz CONSTRUCTION EQUIPMENT MECHANIC HELPER Work Phone: [facility] 11-20-2024 15:30-0400 Body mass index (BMI) [Ratio] 32.48 kg/m2 Pascale Shalaholz CONSTRUCTION EQUIPMENT MECHANIC HELPER Work Phone: [facility] 11-20-2024 15:30-0400 Body temperature 98.2 [degF] Pascale Shalaholz CONSTRUCTION EQUIPMENT MECHANIC HELPER Work Phone: [facility] 11-20-2024 15:30-0400 Body weight 88.54 kg Pascale Shalaholz CONSTRUCTION EQUIPMENT MECHANIC HELPER Work Phone: [facility] 11-20-2024 15:30-0400 Diastolic blood pressure 60 mm[Hg] Pascale Derrickpiperholz CONSTRUCTION EQUIPMENT MECHANIC HELPER Work Phone: [facility] 11-20-2024 15:30-0400 Heart rate 80 /min Pascale Aichholz CONSTRUCTION EQUIPMENT MECHANIC HELPER Work Phone: [facility] 11-20-2024 15:30-0400 Respiratory rate 18 /min Pascale Aichholz CONSTRUCTION EQUIPMENT MECHANIC HELPER Work Phone: [facility] 11-20-2024 15:30-0400 SaO2% (BldA) [Mass fraction] 95 % Pascale Aichholz CONSTRUCTION EQUIPMENT MECHANIC HELPER Work Phone: [facility] 11-20-2024 15:30-0400 Systolic blood pressure 104 mm[Hg] Pascale Aichholz CONSTRUCTION EQUIPMENT MECHANIC HELPER Work Phone: [facility] 10-23-2024 17:34-0400 Body mass index (BMI) [Ratio] 32.58 kg/m2 Pascale Aichholz CONSTRUCTION EQUIPMENT MECHANIC HELPER Work Phone: [facility] 10-23-2024 17:34-0400 Body temperature 98.8 [degF] Pascale Aichholz CONSTRUCTION EQUIPMENT MECHANIC HELPER Work Phone: [facility] 10-23-2024 17:34-0400 Body weight 88.81 kg Pascale Aichholz CONSTRUCTION EQUIPMENT MECHANIC HELPER Work Phone: [facility] 10-23-2024 17:34-0400 Diastolic blood pressure 85 mm[Hg] Pascale Aichholz CONSTRUCTION EQUIPMENT MECHANIC HELPER Work Phone: [facility] 10-23-2024 17:34-0400 Heart rate 92 /min Pascale Aichholz CONSTRUCTION EQUIPMENT MECHANIC HELPER Work Phone: [facility] 10-23-2024 17:34-0400 Respiratory rate 18 /min Pascale Aichholz CONSTRUCTION EQUIPMENT MECHANIC HELPER Work Phone: [facility] 10-23-2024 17:34-0400 SaO2% (BldA) [Mass fraction] 97 % Pascale Aichholz CONSTRUCTION EQUIPMENT MECHANIC HELPER Work Phone: [facility] 10-23-2024 17:34-0400 Systolic blood pressure 98 mm[Hg] Pascale Aichholz CONSTRUCTION EQUIPMENT MECHANIC HELPER Work Phone: [facility] 10-02-2024 16:51-0400 Body height 165.1 cm Pascale Arana CONSTRUCTION EQUIPMENT MECHANIC HELPER Work Phone: [facility] 10-02-2024 16:51-0400 Body mass index (BMI) [Ratio] 33.51 kg/m2 Pascale Herreraz CONSTRUCTION EQUIPMENT MECHANIC HELPER Work Phone: [facility] 10-02-2024 16:51-0400 Body temperature 97.81 [degF] Pascale Arana CONSTRUCTION EQUIPMENT MECHANIC HELPER Work Phone: [facility] 10-02-2024 16:51-0400 Body weight 91.35 kg Pascale Arana CONSTRUCTION EQUIPMENT MECHANIC HELPER Work Phone: [facility] 10-02-2024 16:51-0400 Heart rate 68 /min Pascale Arana CONSTRUCTION EQUIPMENT MECHANIC HELPER Work Phone: [facility] 10-02-2024 16:51-0400 Respiratory rate 18 /min Pascale Arana CONSTRUCTION EQUIPMENT MECHANIC HELPER Work Phone: [facility] 10-02-2024 16:51-0400 SaO2% (BldA) [Mass fraction] 97 % Pascale Arana CONSTRUCTION EQUIPMENT MECHANIC HELPER Work Phone: [facility] 09-04-2024 16:10-0500 Body height 165.1 cm Angel Luis Groves CONSTRUCTION EQUIPMENT MECHANIC HELPER Work Phone: [facility] 09-04-2024 16:10-0500 Body mass index (BMI) [Ratio] 33.28 kg/m2 Angel Luis Groves CONSTRUCTION EQUIPMENT MECHANIC HELPER Work Phone: [facility] 09-04-2024 16:10-0500 Body temperature 97.2 [degF] Angel Luis Groves CONSTRUCTION EQUIPMENT MECHANIC HELPER Work Phone: [facility] 09-04-2024 16:10-0500 Body weight 90.72 kg Angel Luis Groves CONSTRUCTION EQUIPMENT MECHANIC HELPER Work Phone: [facility] 09-04-2024 16:10-0500 Diastolic blood pressure 60 mm[Hg] Angel Luis Groves CONSTRUCTION EQUIPMENT MECHANIC HELPER Work Phone: [facility] 09-04-2024 16:10-0500 Heart rate 79 /min Angel Luis Groves CONSTRUCTION EQUIPMENT MECHANIC HELPER Work Phone: [facility] 09-04-2024 16:10-0500 Respiratory rate 16 /min Angel Luis Groves CONSTRUCTION EQUIPMENT MECHANIC HELPER Work Phone: [facility] 09-04-2024 16:10-0500 SaO2% (BldA) [Mass fraction] 98 % Angel Luis Groves CONSTRUCTION EQUIPMENT MECHANIC HELPER Work Phone: [facility] 09-04-2024 16:10-0500 Systolic blood pressure 100 mm[Hg] Angel Luis Groves CONSTRUCTION EQUIPMENT MECHANIC HELPER Work Phone: [facility] 08-12-2024 16:04-0500 Body mass index (BMI) [Ratio] 33.32 kg/m2 Pascale Derrickpiperholz CONSTRUCTION EQUIPMENT MECHANIC HELPER Work Phone: [facility] 08-12-2024 16:04-0500 Body temperature 98.1 [degF] Pascale Aichholz CONSTRUCTION EQUIPMENT MECHANIC HELPER Work Phone: [facility] 08-12-2024 16:04-0500 Body weight 90.81 kg Pascale Aichholz CONSTRUCTION EQUIPMENT MECHANIC HELPER Work Phone: [facility] 08-12-2024 16:04-0500 Diastolic blood pressure 62 mm[Hg] Pascale Aichholz CONSTRUCTION EQUIPMENT MECHANIC HELPER Work Phone: [facility] 08-12-2024 16:04-0500 Heart rate 80 /min Pascale Aichholz CONSTRUCTION EQUIPMENT MECHANIC HELPER Work Phone: [facility] 08-12-2024 16:04-0500 Respiratory rate 20 /min Pascale Aichholz CONSTRUCTION EQUIPMENT MECHANIC HELPER Work Phone: [facility] 08-12-2024 16:04-0500 SaO2% (BldA) [Mass fraction] 97 % Pascale Aichholz CONSTRUCTION EQUIPMENT MECHANIC HELPER Work Phone: [facility] 08-12-2024 16:04-0500 Systolic blood pressure 90 mm[Hg] Pascale Arana CONSTRUCTION EQUIPMENT MECHANIC HELPER Work Phone: [facility] 07-31-2024 14:59-0500 Body height 165.1 cm Angel Luis Groves CONSTRUCTION EQUIPMENT MECHANIC HELPER Work Phone: [facility] 07-31-2024 14:59-0500 Body mass index (BMI) [Ratio] 34.28 kg/m2 Angel Luis Groves CONSTRUCTION EQUIPMENT MECHANIC HELPER Work Phone: [facility] 07-31-2024 14:59-0500 Body temperature 96.21 [degF] Angel Luis Groves CONSTRUCTION EQUIPMENT MECHANIC HELPER Work Phone: [facility] 07-31-2024 14:59-0500 Body weight 93.44 kg Angel Luis Groves CONSTRUCTION EQUIPMENT MECHANIC HELPER Work Phone: [facility] 07-31-2024 14:59-0500 Diastolic blood pressure 62 mm[Hg] Angel Luis Groves CONSTRUCTION EQUIPMENT MECHANIC HELPER Work Phone: [facility] 07-31-2024 14:59-0500 Heart rate 83 /min Angel Luis Groves CONSTRUCTION EQUIPMENT MECHANIC HELPER Work Phone: [facility] 07-31-2024 14:59-0500 Respiratory rate 22 /min Angel Luis Groves CONSTRUCTION EQUIPMENT MECHANIC HELPER Work Phone: [facility] 07-31-2024 14:59-0500 SaO2% (BldA) [Mass fraction] 98 % Angel Luis Groves CONSTRUCTION EQUIPMENT MECHANIC HELPER Work Phone: [facility] 07-31-2024 14:59-0500 Systolic blood pressure 100 mm[Hg] Angel Luis Groves CONSTRUCTION EQUIPMENT MECHANIC HELPER Work Phone: [facility] 04-10-2024 15:56-0400 Body height 165.1 cm Angel Luis Groves CONSTRUCTION EQUIPMENT MECHANIC HELPER Work Phone: [facility] 04-10-2024 15:56-0400 Body mass index (BMI) [Ratio] 33.61 kg/m2 Angel Luis Groves CONSTRUCTION EQUIPMENT MECHANIC HELPER Work Phone: [facility] 04-10-2024 15:56-0400 Body temperature 98.29 [degF] Angel Luis Groves CONSTRUCTION EQUIPMENT MECHANIC HELPER Work Phone: [facility] 04-10-2024 15:56-0400 Body weight 91.63 kg Angel Luis Groves CONSTRUCTION EQUIPMENT MECHANIC HELPER Work Phone: [facility] 04-10-2024 15:56-0400 Diastolic blood pressure 68 mm[Hg] Angel Luis Groves CONSTRUCTION EQUIPMENT MECHANIC HELPER Work Phone: [facility] 04-10-2024 15:56-0400 Heart rate 67 /min Angel Luis Groves CONSTRUCTION EQUIPMENT MECHANIC HELPER Work Phone: [facility] Comment on above: 98% O2 04-10-2024 15:56-0400 Systolic blood pressure 100 mm[Hg] Angel Luis Groves CONSTRUCTION EQUIPMENT MECHANIC HELPER Work Phone: [facility] 03-18-2024 15:06-0400 Blood Pressure Location Ron Palomares [facility] 03-18-2024 15:06-0400 Diastolic blood pressure 69 mm[Hg] Ron Palomares [facility] 03-18-2024 15:06-0400 Heart rate 85 /min Ron Maddoxli [facility] 03-18-2024 15:06-0400 Respiratory rate 16 /min Lynnd Jelani [facility] 03-18-2024 15:06-0400 Systolic blood pressure 107 mm[Hg] Lynnd Mojesicali [facility] 03-12-2024 15:46-0400 Body height 165.1 cm Angel Luis Groves CONSTRUCTION EQUIPMENT MECHANIC HELPER Work Phone: [facility] 03-12-2024 15:46-0400 Body mass index (BMI) [Ratio] 33.28 kg/m2 Angel Luis Mcelroypatrick CONSTRUCTION EQUIPMENT MECHANIC HELPER Work Phone: [facility] 03-12-2024 15:46-0400 Body temperature 98.01 [degF] Angel Luis Mcelroypatrick CONSTRUCTION EQUIPMENT MECHANIC HELPER Work Phone: [facility] 03-12-2024 15:46-0400 Body weight 90.72 kg Angel Luis Mcelroypatrick CONSTRUCTION EQUIPMENT MECHANIC HELPER Work Phone: [facility] 03-12-2024 15:46-0400 Diastolic blood pressure 70 mm[Hg] Angel Luis Mcelroypatrick CONSTRUCTION EQUIPMENT MECHANIC HELPER Work Phone: [facility] 03-12-2024 15:46-0400 Heart rate 71 /min Angel Luis Mcelroypatrick CONSTRUCTION EQUIPMENT MECHANIC HELPER Work Phone: [facility] Comment on above: 99% O2 03-12-2024 15:46-0400 Systolic blood pressure 100 mm[Hg] Angel Luis Mcelroypatrick CONSTRUCTION EQUIPMENT MECHANIC HELPER Work Phone: [facility] 06-07-2023 16:03-0500 Blood Pressure Location Segun HOLLOWAY [facility] [place] 06-07-2023 16:03-0500 Diastolic blood pressure 88 mm[Hg] Segun WILLARDL [facility] [place] 06-07-2023 16:03-0500 Heart rate 72 /min Segun WILLARDL [facility] [place] 06-07-2023 16:03-0500 Respiratory rate 16 /min Segun WILLARDL [facility] [place] 06-07-2023 16:03-0500 Systolic blood pressure 130 mm[Hg] Segun WILLARDL [facility] [place] 08-30-2021 13:00-0500 Body height 165.1 cm Kristin Ginty Other [place] Other 08-30-2021 13:00-0500 Body mass index (BMI) [Ratio] 30.95 kg/m2 Kristin Ginty Other [place] Other 08-30-2021 13:00-0500 Body temperature 98 [degF] Kristin Ginty Other [place] Other 08-30-2021 13:00-0500 Body weight 84.37 kg Kristin Ginty Other [place] Other 08-30-2021 13:00-0500 Respiratory rate 16 /min Kristin Ginty Other [place] Other 08-30-2021 13:00-0500 SaO2% (BldA) [Mass fraction] 98 % Kristin Ginty Other [place] Other Encounters Encounter Date Encounter Type Care Provider Facility Start: 05-02-2025 End: 05-02-2025 Telephone encounter [facility] Start: 04-30-2025 End: 04-30-2025 ambulatory Pascale GREENC Work Phone: [facility] Work Phone: Start: 04-30-2025 End: 04-30-2025 Patient encounter procedure Pascale GREENC -[facility] Work Phone: Start: 04-23-2025 End: 04-23-2025 Patient encounter procedure Shun Arshad MD -[facility] Work Phone: Start: 04-23-2025 End: 04-23-2025 ambulatory Pascale GREENC Work Phone: [facility] Work Phone: Start: 04-23-2025 Non-patient / Non-visit Tony Dong MD -[facility] Work Phone: Start: 04-09-2025 End: 04-10-2025 ambulatory ROHAN MALICKI Not Available Start: 04-09-2025 End: 04-09-2025 Bamboo flowsheet Rohan Malicki [employer] [facility] Start: 04-09-2025 End: 04-09-2025 Bamboo flowsheet Rohan Malicki [employer] [facility] Start: 04-03-2025 [...] 45 minutes Jovon Asif MD Work Phone: [facility] Comment on above: Cystocele with secon d degree uterine prolapse (Primary Dx); History of reconstructive repair of rectocele; Urge urinary incontinence Start: 04-02-2025 End: 04-02-2025 ambulatory JOVON ASIF [facility] Start: 03-25-2025 End: 03-25-2025 ambulatory ROHAN MALICKI Not Available Start: 03-25-2025 End: 03-25-2025 Bamboo flowsheet Rohan Malicki [employer] [facility] Start: 03-25-2025 End: 03-25-2025 Bamboo flowsheet Rohan Malicki [employer] [facility] Start: 03-25-2025 End: 03-25-2025 ambulatory Pascale Arana Work Phone: [facility] Work Phone: Start: 03-25-2025 End: 03-25-2025 Patient encounter procedure Shun Arshad MD -[facility] Neurosurgery Work Phone: Start: 03-10-2025 End: 03-10-2025 ambulatory Flores Eden MD Facility:[facility] Start: 03-06-2025 End: 03-06-2025 ambulatory ROHAN WERNERI Not Available Start: 03-06-2025 End: 03-06-2025 Bamboo flowsheet Rohan Malicki [employer] [facility] Start: 03-06-2025 End: 03-06-2025 Bamboo flowsheet Rohan Malicki [employer] [facility] Start: 03-05-2025 End: 03-05-2025 Clinisync Result Encounter Pascale Arana CONSTRUCTION EQUIPMENT MECHANIC HELPER Work Phone: [facility] External Department Unsolicited Start: 03-05-2025 End: 03-05-2025 Clinisync Result Encounter Pascale Arana CONSTRUCTION EQUIPMENT MECHANIC HELPER Work Phone: [facility] External Department Unsolicited Start: 02-26-2025 End: 02-27-2025 Clinisync Result Encounter Generic External Data Provider [facility] External Department Unsolicited Start: 02-26-2025 End: 02-27-2025 Clinisync Result Encounter Generic External Data Provider [facility] External Department Unsolicited Start: 02-26-2025 End: 02-26-2025 Refill Pascale Arana CONSTRUCTION EQUIPMENT MECHANIC HELPER Work Phone: [facility] Comment on above: Gastroesophageal ref lux disease, unspecified whether esophagitis present (Primary Dx) Start: 02-25-2025 End: 02-25-2025 Office outpatient visit 25 minutes Pascale Arana CONSTRUCTION EQUIPMENT MECHANIC HELPER Work Phone: [facility] Comment on [...] Office outpatient visit 15 minutes Eunice Dias [facility] Work Phone: [facility] Comment on above: JESSIKA (generalized anx iety disorder) ; Severe episode of recurrent major depressive disorder, without psychotic features (HCC); PTSD (post-traumatic stress disorder) ; Insomnia, unspecified type; Sleep apnea, unspecified type Start: 02-24-2025 End: 02-24-2025 Bamboo flowsheet Eunice Dias [facility] Work Phone: [facility] Start: 02-24-2025 End: 02-24-2025 Bamboo flowsheet Eunice Dias [facility] Work Phone: [facility] Start: 02-24-2025 End: 02-24-2025 Chart abstracting Jovon Asif MD Work Phone: [facility] Start: 02-20-2025 End: 02-20-2025 Refill Pascale Arana CONSTRUCTION EQUIPMENT MECHANIC HELPER Work Phone: [facility] Comment on above: Psychophysiological insomnia Start: 02-19-2025 End: 02-19-2025 Clinisync Result Encounter Generic External Data Provider [facility] External Department Unsolicited Start: 02-19-2025 End: 02-19-2025 Clinisync Result Encounter Generic External Data Provider [facility] External Department Unsolicited Start: 02-11-2025 End: 02-12-2025 Refill Pascale Sumit CONSTRUCTION EQUIPMENT MECHANIC HELPER Work Phone: [facility] Comment on [...] Refill Pascale Arana NP Work Phone: [facility] Comment on above: URTI (acute upper re spiratory infection); Non-recurrent acute suppurative otitis media of both ears without spontaneous rupture of tympanic membranes Start: 02-05-2025 End: 02-05-2025 Clinisync Result Encounter Generic External Data Provider [facility] External Department Unsolicited Start: 02-05-2025 End: 02-05-2025 Clinisync Result Encounter Generic External Data Provider [facility] External Department Unsolicited Start: 01-22-2025 End: 01-22-2025 Bamboo flowsheet Eunice Dias [facility] Work Phone: [facility] Start: 01-22-2025 End: 01-22-2025 Bamboo flowsheet Eunice Dias [facility]- Work Phone: [facility] Start: 01-22-2025 End: 01-22-2025 ambulatory EUNICE DIAS Not Available Start: 01-20-2025 End: 01-20-2025 ambulatory Flores Eden MD Facility:[facility] Start: 01-14-2025 End: 01-14-2025 Clinisync Result Encounter Pascale Arana NP Work Phone: [facility] External Department Unsolicited Start: 01-14-2025 End: 01-14-2025 Clinisync Result Encounter Pascale Aichholz CONSTRUCTION EQUIPMENT MECHANIC HELPER Work Phone: [facility] External Department Unsolicited Start: 01-14-2025 End: 01-14-2025 Refill Pascale Arana CONSTRUCTION EQUIPMENT MECHANIC HELPER Work Phone: [facility] Comment on above: URTI (acute upper re spiratory infection); Non-recurrent acute suppurative otitis media of both ears without spontaneous rupture of tympanic membranes Start: 01-07-2025 End: 01-07-2025 Orders Only Pascale Arana CONSTRUCTION EQUIPMENT MECHANIC HELPER Work Phone: [facility] Comment on above: B12 deficiency (Prim radha Dx); Iron deficiency anemia secondary to inadequate dietary iron intake Start: 01-06-2025 End: 01-06-2025 Office outpatient visit 25 minutes Pascale Arana CONSTRUCTION EQUIPMENT MECHANIC HELPER Work Phone: [facility] Comment on above: Bipolar [...] 01-06-2025 End: 01-06-2025 Bamboo flowsheet Pascale Arana CONSTRUCTION EQUIPMENT MECHANIC HELPER Work Phone: [facility] Start: 01-06-2025 End: 01-06-2025 Bamboo flowsheet Pascale Arana CONSTRUCTION EQUIPMENT MECHANIC HELPER Work Phone: [facility] Start: 01-06-2025 End: 01-06-2025 Telephone encounter Pascale Arana CONSTRUCTION EQUIPMENT MECHANIC HELPER Work Phone: [facility] Start: 12-18-2024 End: 12-20-2024 Refill Pascale Arana CONSTRUCTION EQUIPMENT MECHANIC HELPER Work Phone: [facility] Comment on above: URTI (acute upper re spiratory infection); Non-recurrent acute suppurative otitis media of both ears without spontaneous rupture of tympanic membranes Start: 11-20-2024 End: 11-20-2024 ambulatory PASCALE ARANA Not Available Start: 11-20-2024 End: 11-20-2024 Patient encounter procedure Pascale Arana CONSTRUCTION EQUIPMENT MECHANIC HELPER Work Phone: [facility] Start: 11-20-2024 End: 11-20-2024 Periodic preventive med est patient 40-64yrs Pascale Arana CONSTRUCTION EQUIPMENT MECHANIC HELPER Work Phone: [facility] Comment on above: Well woman exam with [...] 11-20-2024 End: 11-20-2024 Bamboo flowsheet Pascale Arana CONSTRUCTION EQUIPMENT MECHANIC HELPER Work Phone: [facility] Start: 11-20-2024 End: 11-26-2024 Bamboo flowsheet Pascale Arana CONSTRUCTION EQUIPMENT MECHANIC HELPER Work Phone: [facility] Start: 11-20-2024 End: 11-26-2024 Clinisync Result Encounter Pascale Arana NP Work Phone: [facility] External Department Unsolicited Start: 11-18-2024 End: 11-20-2024 Refill Pascale Arana NP Work Phone: [facility] Comment on above: Overactive bladder d ue to prolapse of female genital organ Gastroesophageal ref lux disease, unspecified whether esophagitis present Psychophysiological insomnia Fibromyalgia Environmental and se asonal allergies URTI (acute upper re spiratory infection); Non-recurrent acute suppurative otitis media of both ears without spontaneous rupture of tympanic membranes Bipolar disorder wit h severe depression ([facility]) Start: 10-23-2024 End: 10-23-2024 Office outpatient visit 15 minutes Pascale Arana NP Work Phone: [facility] Comment on above: Iron deficiency anem ia secondary to inadequate dietary iron intake (Primary Dx); Class 1 obesity due to excess calories without serious comorbidity in adult, unspecified BMI; Cigarette nicotine dependence without complication; B12 deficiency; BMI 32.0-32.9,adult Start: 10-23-2024 End: 10-23-2024 Clinisync Result Encounter Pascale Arana NP Work Phone: [facility] External Department Unsolicited Start: 10-23-2024 End: 10-23-2024 Clinisync Result Encounter Pascale Arana NP Work Phone: [facility] External Department Unsolicited Start: 10-23-2024 End: 01-15-2025 Patient encounter procedure Molina De Anda MD Work Phone: [facility] Start: 10-23-2024 End: 10-23-2024 Refill Molina De Anda MD Work Phone: [facility] Comment on above: URTI (acute upper re spiratory infection); Non-recurrent acute suppurative otitis media of both ears without spontaneous rupture of tympanic membranes Start: 10-03-2024 End: 10-03-2024 Clinisync Result Encounter Pascale Arana NP Work Phone: [facility] External Department Unsolicited Start: 10-03-2024 End: 10-03-2024 Clinisync Result Encounter Pascale Arana NP Work Phone: [facility] External Department Unsolicited Start: 10-02-2024 End: 10-02-2024 Office outpatient visit 25 minutes Pascale Arana NP Work Phone: [facility] Comment on above: Gastroesophageal ref lux [...] 10-02-2024 End: 10-02-2024 Bamboo flowsheet Pascale Sumit CONSTRUCTION EQUIPMENT MECHANIC HELPER Work Phone: [facility] Start: 10-02-2024 End: 10-02-2024 Bamboo flowsheet Pascale Sumit CONSTRUCTION EQUIPMENT MECHANIC HELPER Work Phone: [facility] Start: 09-09-2024 End: 09-09-2024 Clinisync Result Encounter Generic External Data Provider [facility] External Department Unsolicited Start: 09-09-2024 End: 09-09-2024 Clinisync Result Encounter Generic External Data Provider [facility] External Department Unsolicited Start: 09-06-2024 End: 09-09-2024 Refill Pascale Arana CONSTRUCTION EQUIPMENT MECHANIC HELPER Work Phone: [facility] Comment on above: Environmental and se asonal allergies Start: 09-05-2024 End: 09-05-2024 Clinisync Result Encounter Generic External Data Provider [facility] External Department Unsolicited Start: 09-05-2024 End: 09-05-2024 Clinisync Result Encounter Generic External Data Provider [facility] External Department Unsolicited Start: 09-04-2024 End: 09-04-2024 Office outpatient visit 10 minutes Angel Luis Groves CONSTRUCTION EQUIPMENT MECHANIC HELPER Work Phone: [facility] Comment on above: BMI 33.0-33.9,adult (Primary Dx); Bipolar disorder with severe depression ([facility]); Fibromyalgia; Gastro-esophageal reflux disease without esophagitis; Esophageal reflux; BMI 34.0-34.9,adult; Psychophysiological insomnia; Overactive bladder due to prolapse of female genital organ Start: 09-04-2024 End: 09-04-2024 ambulatory ANGEL LUIS BRITTONZPATRICK Not Available Start: 09-04-2024 End: 09-04-2024 Bamboo flowsheet Angel Luis Groves CONSTRUCTION EQUIPMENT MECHANIC HELPER Work Phone: [facility] Start: 09-04-2024 End: 09-04-2024 Bamboo flowsheet Angel Luis Groves CONSTRUCTION EQUIPMENT MECHANIC HELPER Work Phone: [facility] Start: 08-28-2024 End: 08-28-2024 Refill Angel Luis Brittonzpatrick CONSTRUCTION EQUIPMENT MECHANIC HELPER Work Phone: [facility] Comment on above: Fibromyalgia Start: 08-14-2024 End: 08-14-2024 Refill Angel Luis Groves CONSTRUCTION EQUIPMENT MECHANIC HELPER Work Phone: [facility] Comment on above: Fibromyalgia Start: 08-12-2024 End: 08-12-2024 Office outpatient visit 25 minutes Pascale Arana CONSTRUCTION EQUIPMENT MECHANIC HELPER Work Phone: [facility] Comment on above: Acute non-recurrent maxillary sinusitis (Primary Dx); Cigarette nicotine dependence without complication; Class 1 obesity due to excess calories without serious comorbidity in adult, unspecified BMI; Environmental and seasonal allergies; Cutaneous abscess of abdominal wall Start: 08-12-2024 End: 08-12-2024 ambulatory PASCALE ARANA Not Available Start: 08-12-2024 End: 08-12-2024 Bamboo flowsheet Pascale Sumit CONSTRUCTION EQUIPMENT MECHANIC HELPER Work Phone: [facility] Start: 08-12-2024 End: 08-14-2024 Bamboo flowsheet Pascale Arana CONSTRUCTION EQUIPMENT MECHANIC HELPER Work Phone: [facility] Start: 08-12-2024 End: 08-14-2024 External Result Encounter Pascale Arana CONSTRUCTION EQUIPMENT MECHANIC HELPER Work Phone: [facility] External Department Unsolicited Start: 08-05-2024 End: 08-06-2024 Orders Only Angel Luis Groves CONSTRUCTION EQUIPMENT MECHANIC HELPER Work Phone: [facility] Comment on above: B12 deficiency (Prim radha Dx); Iron deficiency anemia, unspecified iron deficiency anemia type Start: 08-01-2024 End: 08-01-2024 Clinisync Result Encounter Angel Luis Groves CONSTRUCTION EQUIPMENT MECHANIC HELPER Work Phone: [facility] External Department Unsolicited Start: 08-01-2024 End: 08-01-2024 Clinisync Result Encounter Angel Luis Groves CONSTRUCTION EQUIPMENT MECHANIC HELPER Work Phone: [facility] External Department Unsolicited Start: 07-31-2024 End: 07-31-2024 Office outpatient visit 15 minutes Angel Luis Blackburnk CONSTRUCTION EQUIPMENT MECHANIC HELPER Work Phone: [facility] Comment on above: Iron deficiency anem ia secondary to inadequate dietary iron intake (Primary Dx); Fibromyalgia; Psychophysiological insomnia; BMI 34.0-34.9,adult Start: 07-31-2024 End: 07-31-2024 ambulatory ANGEL LUIS MCELROYPATRICK Not Available Start: 07-31-2024 End: 07-31-2024 Bamboo flowsheet Angel Luis Groves CONSTRUCTION EQUIPMENT MECHANIC HELPER Work Phone: [facility] Start: 07-31-2024 End: 07-31-2024 Bamboo flowsheet Angel Luis Mcelroypatrick CONSTRUCTION EQUIPMENT MECHANIC HELPER Work Phone: [facility] Start: 07-25-2024 End: 07-29-2024 Refill Angel Luis Mcelroypatrick CONSTRUCTION EQUIPMENT MECHANIC HELPER Work Phone: [facility] Comment on above: Psychophysiological insomnia Start: 06-25-2024 End: 06-25-2024 Refill Angel Luis Groves CONSTRUCTION EQUIPMENT MECHANIC HELPER Work Phone: [facility] Comment on above: Psychophysiological insomnia Start: 06-11-2024 End: 06-11-2024 Orders Only Angel Luis Groves CONSTRUCTION EQUIPMENT MECHANIC HELPER Work Phone: [facility] Comment on above: Fibromyalgia (Primar y Dx) Start: 06-03-2024 End: 06-03-2024 Refill Angel Luis Groves CONSTRUCTION EQUIPMENT MECHANIC HELPER Work Phone: [facility] Comment on above: Fibromyalgia Start: 05-27-2024 End: 05-27-2024 Orders Only Angel Luis Groves CONSTRUCTION EQUIPMENT MECHANIC HELPER Work Phone: [facility] Comment on above: Psychophysiological insomnia (Primary Dx) Start: 04-18-2024 End: 04-18-2024 ambulatory MD Tyson Collazo Work Phone: [facility] Work Phone: Start: 04-18-2024 End: 04-18-2024 Patient encounter procedure MD Tyson Collazo Work Phone: [facility] [address] Work Phone: Start: 04-10-2024 End: 04-10-2024 Office outpatient visit 15 minutes Angel Luis Groves CONSTRUCTION EQUIPMENT MECHANIC HELPER Work Phone: [facility] Comment on above: Psychophysiological insomnia (Primary Dx); Fibromyalgia; Constipation, unspecified constipation type Start: 04-10-2024 End: 04-10-2024 Bamboo flowsheet Angel Luis Groves CONSTRUCTION EQUIPMENT MECHANIC HELPER Work Phone: [facility] Start: 04-10-2024 End: 04-10-2024 Bamboo flowsheet Angel Luis Groves CONSTRUCTION EQUIPMENT MECHANIC HELPER Work Phone: [facility] Start: 03-18-2024 End: 03-18-2024 ambulatory Ron Palomares Facility:[facility] Start: 03-18-2024 End: 03-18-2024 Patient encounter procedure Ron Palomares [facility] Start: 03-13-2024 End: 03-13-2024 Refill Angel Luis Groves CONSTRUCTION EQUIPMENT MECHANIC HELPER Work Phone: [facility] Comment on above: Fibromyalgia (Primar y Dx) Start: 03-12-2024 End: 03-12-2024 Office outpatient visit 15 minutes Angel Luis Groves CONSTRUCTION EQUIPMENT MECHANIC HELPER Work Phone: [facility] Comment on above: Constipation, unspec ified constipation type (Primary Dx); Fibromyalgia Start: 03-12-2024 End: 03-12-2024 Bamboo flowsheet Angel Luis Blackburnk CONSTRUCTION EQUIPMENT MECHANIC HELPER Work Phone: [facility] Start: 03-12-2024 End: 03-12-2024 Bamboo flowsheet Angel Luis Groves CONSTRUCTION EQUIPMENT MECHANIC HELPER Work Phone: [facility] Start: 03-07-2024 ambulatory Mohamad Mouchli Facilit y:Ron BLAND Start: 02-26-2024 Non-patient / Non-visit MD Roel Collazo Work Phone: [facility] Work Phone: Start: 08-25-2023 Casey Main MD Work Phone: [facility] Comment on above: Bipolar disorder wit h severe depression (CMS/HCC) Start: 07-19-2023 End: 07-19-2023 ambulatory Segun HOLLOWAY Facility:CD:[id number] Start: 06-07-2023 End: 06-07-2023 ambulatory Segun HOLLOWAY Facility: [facility] Start: 06-07-2023 End: 06-07-2023 Patient encounter procedure Segun HOLLOWAY General Surgery [facility] Start: 06-05-2023 ambulatory Mohlilod Mojesicali Facilit y:STEPHANIE [facility]readwellFredrick Start: 05-18-2023 ambulatory Mohamad Mouchli Facilit y: Jun Start: 04-07-2023 End: 04-07-2023 ambulatory [facility] Start: 02-08-2023 ambulatory [facility] Start: 05-31-2022 End: 06-01-[address] TAMIKO NETTLES Facility:[facility] Start: 05-10-2022 End: 05-11-[address] ELLIOT JOSE Facility:[facility] Start: 04-19-2022 End: 04-20-2022 ambulatory KAJAL ESCOBEDO Facility:[facility] Start: 03-29-2022 End: 03-30-2022 ambulatory KAJAL ESCOBEDO Facility:[facility] Start: 03-10-2022 End: 03-10-2022 ambulatory TAWANA FOSTER Facility:[facility] Start: 03-07-2022 Encounter for prepro cedural cardiovascular examination [facility] Start: 03-07-2022 Encounter for prepro cedural laboratory examination [facility] Start: 03-03-2022 End: 03-04-2022 ambulatory TAWANA Dong [facility] Facility:[facility] Start: 03-03-2022 End: 03-04-2022 Encounter for preprocedural laboratory examination TAWANA Dong [facility] Facility:[facility] Start: 02-22-2022 End: 02-23-2022 ambulatory TAWANA Dong [facility] Facility:[facility] Start: 02-09-2022 End: 02-10-2022 ambulatory TAWANA Dong [facility] Facility:[facility] Start: 08-30-2021 End: 08-30-2021 ambulatory Kristin Quintana Other [place] Other Start: 08-30-2021 Office outpatient vi sit 15 minutes Kristin Quintana [facility] Start: 06-07-2021 End: 06-07-[address] ROBERTO SCOTT Facility:[facility] Start: 11-14-2018 End: 11-15-2018 Patient encounter procedure DEFAULT PHYSICIAN Facility:[facility] Procedures Date Procedure Procedure Detail Performing Clinician Start: 04-09-2025 End: 04-10-2025 Psychotherapy w/patient 60 minutes JESSIKA (generalized anxiety disorder) 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 Comment on above: JESSIKA (generalized anxiety disorder) ; Severe episode of recurrent major depressive disorder, without psychotic features (HCC); PTSD (post-traumatic stress disorder) Start: 03-25-2025 End: 03-25-2025 Psychotherapy w/patient 60 minutes JESSIKA (generalized anxiety disorder) 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 Comment on above: JESSIKA (generalized anxiety disorder) ; Severe episode of recurrent major depressive disorder, without psychotic features (HCC); PTSD (post-traumatic stress disorder) Start: 03-06-2025 End: 03-06-2025 Psychiatric diagnostic evaluation JESSIKA (generalized anxiety disorder) 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 [employer] Comment on above: JESSIKA (generalized anxiety disorder) ; Severe episode of recurrent major depressive disorder, without psychotic features (HCC); PTSD (post-traumatic stress disorder) Start: 03-05-2025 ALL CBC WITH AUTO DIFF Pascale Arana CONSTRUCTION EQUIPMENT MECHANIC HELPER Work Phone: Start: 02-26-2025 SEGMENTAL BLOOD PRESSURE [...] ALL CBC WITH AUTO DIFF Pascale Arana CONSTRUCTION EQUIPMENT MECHANIC HELPER Work Phone: Start: 11-20-2024 IGP,APTIMA HPV,AGE GDLN Pascale Arana CONSTRUCTION EQUIPMENT MECHANIC HELPER Work Phone: Start: 11-20-2024 Microscopic observation [Identifier] in Cervix by Cyto stain Pascale Arana CONSTRUCTION EQUIPMENT MECHANIC HELPER Work Phone: Start: 10-23-2024 MM TOMOSYNTHESIS SCREENING BI Pascale lui CONSTRUCTION EQUIPMENT MECHANIC HELPER Work Phone: Start: 10-23-2024 Mammography Pascale Arana CONSTRUCTION EQUIPMENT MECHANIC HELPER Work Phone: Start: 10-03-2024 ALL CBC WITH AUTO DIFF Pascale Sumit CONSTRUCTION EQUIPMENT MECHANIC HELPER Work Phone: Start: 09-09-2024 CT FOOT LT WO CON Generic External Data Provider Start: 09-05-2024 XR FOOT LT MIN 3V Generic External Data Provider Start: 08-12-2024 CHRONIC WOUND/ULCER (HTRX) Pascale Sumit CONSTRUCTION EQUIPMENT MECHANIC HELPER Work Phone: Start: 08-01-2024 ALL CBC WITH AUTO DIFF Angel Luis Brittonzpatrick CONSTRUCTION EQUIPMENT MECHANIC HELPER Work Phone: Start: 07-19-2023 Colonoscopy Shaikh Etelvina [...] Screening for malign ant neoplasm of colon [facility] Start: 11-21-2027 Screening for malign ant neoplasm of cervix [facility] Start: 2026 Tobacco Screening Tobacco Screening [facility] Start: 04-02-2026 Adult BMI Screening Adult BMI Screen [facility] Start: 02-24-2026 Tobacco Screening Tobacco Screening [facility] Start: 02-06-2026 Adult BMI Screening Adult BMI Screen [facility] Start: 02-06-2026 Tobacco Screening Tobacco Screening [facility] Start: 10-23-2025 Screening for malign ant neoplasm of breast Mammogram [facility] Start: 05-28-2025 End: 05-28-2025 Patient encounter procedure 05/28/2025 2:30 PM EST Procedure visit [facility] [address] [place] [phone] Jovon Asif MD [address] [place] [address] [facility] Start: 05-21-2025 End: 05-21-2025 Social Work 05/21/2025 4:30 PM EDT Social Work [facility] [address] [place] [phone] Rohan Waters LPC [facility] Start: 05-19-2025 End: 05-19-2025 Patient encounter procedure 05/19/2025 3:30 PM EDT Office Visit [facility] [address] [place] [phone] Macarena Chang, PHYSICIAN OFFICE REP-DRY CELL ASSEMBLY SUPERVISOR [address] [place] [address] [facility] Start: 04-30-2025 End: 04-30-2025 Patient encounter procedure 04/30/2025 4:30 PM EDT Office Visit [facility] [address] [place] [address] Pascale Arana, MARY JO [address] [place] [address] [facility] Start: 04-24-2025 End: 04-24-2025 Social Work 04/24/2025 4:30 PM EDT Social Work [facility] [address] [place] [phone] Rohan Waters LPC [facility] Start: 04-09-2025 End: 04-09-2025 Social Work [facility] Comment on above: Arrived Start: 04-03-2025 End: 04-03-2025 Telemedicine consultation with patient 04/03/2025 9:00 AM EDT Telemedicine [facility] [address] [place] [address] Eunice Dias, PMHNP-BC [address] [place] [address] [facility] Start: 04-02-2025 End: 04-02-2025 Patient encounter procedure 04/02/2025 3:00 PM EDT Office Visit [facility] [address] [place] [address] Jovon Asif MD [address] [place] [address] [facility] Start: 03-25-2025 End: 03-25-2025 Social Work [facility] Comment on above: Arrived Start: 03-24-2025 Influenza vaccination [facility] Start: 03-06-2025 End: 03-06-2025 Social Work [facility] Comment on above: Arrived Start: 02-25-2025 [...] 02/25/2025 11:30 AM EDT Office Visit [facility] [address] [place] [address] Pascale Arana, CONSTRUCTION EQUIPMENT MECHANIC HELPER [address] [place] [phone] [facility] Start: 02-24-2025 End: 02-24-2025 Patient encounter procedure [facility] Start: 02-05-2025 End: 02-05-2025 Patient encounter procedure 02/05/2025 3:20 PM EDT Office Visit [facility] [address] [place] [address] Pascale Arana, CONSTRUCTION EQUIPMENT MECHANIC HELPER [address] [place] [phone] [facility] Start: 01-22-2025 End: 01-22-2025 Patient encounter procedure [facility] Comment on above: Bipolar disorder wit h severe depression (HCC) Start: 01-07-2025 End: 01-07-2026 CBC W Auto Differential panel - Blood CBC and differential Lab Routine Iron deficiency anemia secondary to inadequate dietary iron intake Expected: 01/07/2025 (Approximate), Expires: 01/07/2026 [facility] Work Phone: Comment on above: [...] iron intake Expected: 01/07/2025 (Approximate), Expires: 01/07/2026 [facility] Comment on above: Expected: 01/07/2025 (Approximate), Expires: 01/07/2026 Start: 01-07-2025 End: 01-07-2026 Iron + transferrin + TIBC Iron + transferrin + TIBC Lab Routine Iron deficiency anemia secondary to inadequate dietary iron intake Expected: 01/07/2025 (Approximate), Expires: 01/07/2026 [facility] Comment on above: Expected: 01/07/2025 (Approximate), Expires: 01/07/2026 Start: 01-06-2025 End: 01-06-2025 Patient encounter procedure [facility] Comment on above: Gastroesophageal ref lux disease, unspecified whether esophagitis present (Primary Dx); Class 1 obesity due to excess calories without serious comorbidity with body mass index (BMI) of 32.0 to 32.9 in adult; Cigarette nicotine dependence without complication Start: 11-20-2024 End: 11-20-2024 Patient encounter procedure 11/20/2024 3:20 PM EDT Office Visit [facility] [address] [place] [address] Pascale Arana NP [address] [place] [address] [facility] Start: 11-20-2024 End: 11-20-2025 THIN PREP TIS PAP AND HR HPV DNA THIN PREP TIS PAP AND HR HPV DNA Pathology and Cytology Routine Well woman exam with routine gynecological exam Expected: 11/20/2024 (Approximate), Expires: 11/20/2025 [facility] Work Phone: Comment on above: Expected: 11/20/2024 (Approximate), Expires: 11/20/2025 Start: 10-23-2024 End: 10-23-2024 Patient encounter procedure 10/23/2024 5:30 PM EDT Procedure Visit [facility] [address] [place] [address] Pascale Arana, CONSTRUCTION EQUIPMENT MECHANIC HELPER [address] [place] [phone] [facility] Start: 10-07-2024 Influenza vaccination Influenza Vacc ine (#1) [facility] Comment on above: Postponed from 03/24 (Patient Refused) Start: 10-04-2024 End: 08-06-2025 CBC W Auto Differential panel - Blood CBC and differential Lab Routine B12 deficiency Iron deficiency anemia, unspecified iron deficiency anemia type Expected: 10/04/2024 (Approximate), Expires: 08/06/2025 [facility] Work Phone: Comment on above: Expected: 10/04/2024 (Approximate), Expires: 08/06/2025 Start: 10-04-2024 End: 08-06-2025 Cobalamin (Vitamin B12) [Mass/volume] in Serum or Plasma Vitamin B12 Lab Routine B12 deficiency Iron deficiency anemia, unspecified iron deficiency anemia type Expected: 10/04/2024 (Approximate), Expires: 08/06/2025 [facility] Comment on above: Expected: 10/04/2024 (Approximate), Expires: 08/06/2025 Start: 10-04-2024 End: 08-06-2025 Ferritin [Mass/volume] in Serum or Plasma Ferritin Lab Routine B12 deficiency Iron deficiency anemia, unspecified iron deficiency anemia type Expected: 10/04/2024 (Approximate), Expires: 08/06/2025 [facility] Comment on above: Expected: 10/04/2024 (Approximate), Expires: 08/06/2025 Start: 10-04-2024 End: 08-06-2025 Iron + transferrin + TIBC Iron + transferrin + TIBC Lab Routine B12 deficiency Iron deficiency anemia, unspecified iron deficiency anemia type Expected: 10/04/2024 (Approximate), Expires: 08/06/2025 [facility] Comment on above: Expected: [...] B12 deficiency Expected: 10/02/2024 (Approximate), Expires: 10/02/2025 [facility] Comment on above: Expected: 10/02/2024 (Approximate), Expires: 10/02/2025 Start: 10-02-2024 End: 10-02-2025 Cobalamin (Vitamin B12) [Mass/volume] in Serum or Plasma Vitamin B12 Lab Routine B12 deficiency Expected: 10/02/2024 (Approximate), Expires: 10/02/2025 [facility] Comment on above: Expected: 10/02/2024 (Approximate), Expires: 10/02/2025 Start: 10-02-2024 End: 10-02-2025 Ferritin [Mass/volume] in Serum or Plasma Ferritin Lab Routine Iron deficiency anemia secondary to inadequate dietary iron intake Expected: 10/02/2024 (Approximate), Expires: 10/02/2025 [facility] Comment on above: Expected: 10/02/2024 (Approximate), Expires: 10/02/2025 Start: 10-02-2024 End: 10-02-2025 Iron + transferrin + TIBC Iron + transferrin + TIBC Lab Routine Iron deficiency anemia secondary to inadequate dietary iron intake Expected: 10/02/2024 (Approximate), Expires: 10/02/2025 [facility] Comment on above: Expected: 10/02/2024 (Approximate), Expires: 10/02/2025 Start: 10-02-2024 End: 12-02-2025 MG Breast - bilateral Screening Bilateral screening mammogram Imaging Routine Encounter for screening mammogram for malignant neoplasm of breast Expected: 10/02/2024 (Approximate), Expires: 12/02/2025 [facility] Work Phone: Comment on above: Expected: 10/02/2024 (Approximate), Expires: 12/02/2025 Start: 09-04-2024 End: 09-04-2024 Patient encounter procedure [facility] Comment on above: Arrived Start: 08-12-2024 End: 08-12-2024 Patient encounter procedure 08/12/2024 4:00 PM EST Office Visit [facility] [address] [place] [address] Pascale Arana NP [address] [place] [address] [facility]rived [facility] Comment on above: Arrived Start: 08-12-2024 End: 08-12-2025 SUPERFICIAL WOUND (HTRX) SUPERFICIAL WOUND (HTRX) Lab Routine Cutaneous abscess of abdominal wall Expected: 08/12/2024 (Approximate), Expires: 08/12/2025 [facility] Work Phone: Comment on above: Expected: 08/12/2024 (Approximate), Expires: 08/12/2025 Start: 07-31-2024 End: 07-31-2024 Patient encounter procedure [facility] Comment on above: Arrived Start: 07-31-2024 End: 07-31-2025 Cobalamin (Vitamin B12) [Mass/volume] in Serum or Plasma Vitamin B12 Lab Routine Iron deficiency anemia secondary to inadequate dietary iron intake Expected: 07/31/2024 (Approximate), Expires: 07/31/2025 [facility] Comment on above: Expected: 07/31/2024 (Approximate), Expires: 07/31/2025 Start: 07-31-2024 End: 07-31-2025 Ferritin [Mass/volume] in Serum or Plasma Ferritin Lab Routine Iron deficiency anemia secondary to inadequate dietary iron intake Expected: 07/31/2024 (Approximate), Expires: 07/31/2025 [facility] Comment on above: Expected: 07/31/2024 (Approximate), Expires: 07/31/2025 Start: 07-31-2024 End: 07-31-2025 Iron + transferrin + TIBC Iron + transferrin + TIBC Lab Routine Iron deficiency anemia secondary to inadequate dietary iron intake Expected: 07/31/2024 (Approximate), Expires: 07/31/2025 [facility] Comment on above: Expected: 07/31/2024 (Approximate), Expires: 07/31/2025 Start: 07-10-2024 End: 07-10-2024 Patient encounter procedure 07/10/2024 4:30 PM EST Office Visit [facility] [address] [place] [address] Angel Luis Groves, CONSTRUCTION EQUIPMENT MECHANIC HELPER [address] [place] [address] [facility] Start: 06-05-2024 End: 06-05-2024 Patient encounter procedure 06/05/2024 5:30 PM EST Office Visit [facility] [address] [place] [address] Angel Luis Groves, CONSTRUCTION EQUIPMENT MECHANIC HELPER [address] [place] [address] [facility] Start: 04-10-2024 End: 04-10-2024 Patient encounter procedure [facility] Comment on above: Arrived Start: 03-24-2024 Influenza vaccination Influenza Vacc ine (#1) [facility] Start: 03-12-2024 End: 03-12-2024 Patient encounter procedure 03/12/2024 3:30 PM EDT Office Visit [facility] [address] [place] [address] Angel Luis Groves, CONSTRUCTION EQUIPMENT MECHANIC HELPER [address] [place] [address] Arrived [facility] Comment on above: Arrived Start: 11-13-2023 End: 11-13-2023 Patient encounter procedure 11/13/2023 4:45 PM EDT Office Visit [facility] [address] [place] [address] Shaikh Main MD [address] [place] [address] [facility] Start: 03-24-2023 Influenza vaccination Influenza Vacc ine (#1) [facility] Start: 2021 Administration of varicella zoster vaccine Zoster (Shingles) Vaccine (1 of 2) [facility] Start: 2011 Screening for malign ant neoplasm of breast Mammogram [facility] Start: 2001 Screening for malign ant neoplasm of cervix [facility] Start: 1992 Screening for malign ant neoplasm of cervix Pap Smear [facility] Start: 1990 DTaP,Tdap and Td Vac cines (1 - Tdap) DTaP,Tdap and Td Vaccines (1 - Tdap) [facility] Start: 1989 Adult BMI Follow Up Plan Adult BMI Follow Up Plan [facility] Start: 1983 Depression Screening Depression Scre ening [facility] Start: 1971 Screening for malign ant neoplasm of colon [facility] Start: 1971 Screening for malign ant neoplasm of lung Lung Cancer Screening Shared Decision Making [facility] Start: 1971 Tobacco Counseling Tobacco Counselin g [facility] CBC W Auto Different ial panel - Blood CBC and differential Lab Routine Iron deficiency anemia secondary to inadequate dietary iron intake Ordered: 07/31/2024 [facility] Work Phone: Comment on above: Ordered: 07/31/2024 Comprehensive metabo lic 2000 panel - Serum or Plasma [facility] DRUG TOX MONITORIGN 6 W/ CONF,URINE DRUG TOX MONITORIGN 6 W/ CONF,URINE Lab Routine Encounter for drug screening Ordered: 01/22/2025 [facility] Work Phone: Comment on above: Ordered: 01/22/2025 Electromyography [facility] Sjogrens syndrome-A extractable nuclear Ab [Units/volume] in Serum [facility] Sjogrens syndrome-B extractable nuclear Ab [Units/volume] in Serum [facility] Immunizations Immunization Date Immunization Notes Care Provider Fa cility NEGATED: Highlighted row has not occurred!06-07-2023 influenza virus vaccine, unspecified formulation [facility] [place] Payers Date Payer Category Payer Self-pay 2024 Private Health Insurance 2009 Commercial Managed Care - POS [id number] 2009 Managed Care HMO (unspecified) [id number] 1971 Unknown [id number] 2.16.840.1.860301.3.579.2.647 1971 Unknown [id number] 2.16.84 0.1.239032.3.579.2.593 1971 Unknown [id number] 2.16.84 0.1.853784.3.579.2.593 1971 Unknown [id number] 2.16.84 0.1.887413.3.579.2.593 1971 Unknown [id number] 2.16.84 0.1.202031.3.579.2.593 1971 Unknown [id number] 2.16.84 0.1.007819.3.579.2.593 1971 Unknown [id number] 2.16.84 0.1.654988.3.579.2.593 1971 Unknown [id number] 2.16.84 0.1.762029.3.579.2.593 1971 Unknown [id number] 2.16.84 0.1.585840.3.579.2.593 1971 Unknown [id number] 2.16.84 0.1.885889.3.579.2.593 1971 Unknown [id number] 2.16.840.1.998609.3.579.2.727 1971 Unknown [id number] 2.16.840.1.488428.3.579.2.727 1971 Unknown [id number] 2.16.840.1.117990.3.579.2.727 1971 Unknown [id number] 2.16.840.1.861658.3.579.2.727 1971 Unknown [id number] 2.16.840.1.158150.3.579.2.727 1971 Unknown [id number] 2.16.840.1.071456.3.579.2.196 1971 Unknown [id number] 2.16.840.1.881851.3.579.2.196 1971 Unknown [id number] 2.16.840.1.611883.3.579.2.1286 1971 Unknown [id number] 2.16.840.1.525319.3.579.2.1285 1971 Unknown [id number] 2.16.840.1.588951.3.579.2.1258 1971 Unknown [id number] 2.16.840.1.940098.3.579.2.1258 1971 Unknown [id number] 2.16.840.1.194261.3.579.2.1258 1971 Unknown [id number] 2.16.840.1.407266.3.579.2.1258 1971 Unknown [id number] 2.16.840.1.351526.3.579.2.1258 1971 Unknown [id number] 2.16.840.1.313843.3.579.2.1258 1971 Unknown [id number] 2.16.840.1.469787.3.579.2.1258 1971 Unknown [id number] 2.16.840.1.842269.3.579.2.9 1971 Unknown [id number] 2.16.840.1.465373.3.579.2.1258 1971 Unknown [id number] 2.16.840.1.788733.3.579.2.1258 1971 Unknown [id number] 2.16.840.1.490428.3.579.2.1258 1971 Unknown [id number] 2.16.840.1.173635.3.579.2.1258 1971 Unknown [id number] 2.16.840.1.846237.3.579.2.1258 1971 Unknown [id number] 2.16.840.1.500628.3.579.2.1259 1959 Private Health Insurance [id number] 2.16.840.1.327944.19 Unknown Unknown [id number] 2.16.840.1.817926.3.579.2.531 Social History Date Type Detail Facility Unknown if ever smoked [facility] Other Start: 09-03-2020 End: 08-07-2023 Sex Assigned At [facility] Start: 06-07-2023 End: 03-18-2024 Tobacco smoking status Heavy tobacco smoker (finding) [facility] Tobacco smoking status Former sm okeless tobacco user, quit more than 30 days ago [facility] Start: 07-04-2023 End: 02-06-2025 Tobacco smoking status NDIS Smokes tobacco daily [facility] Start: 07-24-1985 History of tobacco use Cigarette Smo ker [facility] Start: 09-03-2020 End: 07-04-2023 Cigarettes smoked current (pack per day) - Reported 1 [facility] Start: 07-04-2023 End: 02-06-2025 Tobacco use and exposure Smokeless tobacco non-user [facility] Start: 08-14-2023 End: 01-06-2025 Alcohol intake [...] Start: 07-04-2023 Tobacco Comment Thinking about quitting [facility] Start: 07-04-2023 Alcohol Comment caffeine: 3-4 cups per day [facility] Start: 1970 Sex Assigned At Not on file N [facility] Start: 1971 Sex Assigned At Female F [facility] History of tobacco use Passive smoker [facility] Start: 01-22-2025 End: 02-25-2025 Alcoholic beverage intake Ex-drinker (finding) [facility] Start: 02-26-2015 Sex Female (finding) [facility] Start: 02-24-2025 End: 2025 Alcoholic beverage intake Current drinker of alcohol (finding) [facility] Goals Date Patient Goal Desired Activity /State Personal health goal Functional Status Date Assessment Result Facility 01-22-2025 Generalized anxiety disorder 7 item (JESSIKA-7) [facility] 01-22-2025 Patient Health Quest ionnaire 2 item (PHQ-2) [Reported] [facility] 01-22-2025 PHQ-9 quick depressi on assessment panel [Reported.PHQ] [facility] 03-18-2024 Functional Status N/A [facility] 06-07-2023 Functional Status [...] their preferred pharmacy. documented in this encounter [facility] 05-02-2025 Telephone encount er Note Patient called to say she is on Tolterodine for her OAB but is having worse incontinence. She has UDS scheduled in May but her PCP wants to see if she can be put on something else as the current med is the highest dose. Please advise. [facility] 05-02-2025 Telephone encount er Note Myrbetriq 50 milligrams once daily, dispense 30 tablets, 5 refills. [facility] 05-02-2025 Telephone encount er Note Called patient and sent in Myrbetriq to their preferred pharmacy. [facility] 04-03-2025 History of Presen t illness Narrative Images from the original note were not included. HPI: Talia Rutherford is a 54 y.o. female with a history of Fibromyalgia, gastric bypass (2019), sleep apnea (does not wear CPAP), MDD, JESSIKA, PTSD, and Insomnia. Patient is here today for follow-up via telehealth. Location of patient: Home; located in [place] Location of provider: Office; located in [place], [place] Patient seen via: [employer] Tele[facility]; audio and video utilized Reason for [...] Practitioner (Behavioral Health) Rohan Waters LPC as Asphalt Paving Machine Operator (Behavioral Health) PSYCHIATRIC REVIEW OF SYMPTOMS AND [...] she will need to follow-up with other adjunct psychology instructor in the future due to medication adjustment [...] as described above. documented in this encounter [facility] 04-02-2025 History of Presen t illness Narrative SUBJECTIVE Chief Complaint: cystocele HPI Ms. Talia Rutherford is a , 54 y.o. female who is referred by Shelia Muniz DO for cystocele. The patient reports history of rectocele repair in 2021 at [facility]. She notes a bulge on a [...] pessary previously. Gynecology provider: Dr. Muniz. Previous machine ii cutter/abdominal surgeries/procedures: cholecystectomy, gastric bypass, tubal ligation. She [...] given by office. Patient was given a [employer] coupon voucher to use, this is not [...] diarrhea, fecal incontinence. She is SA. Previous machine ii cutter/abdominal surgeries/procedures: cholecystectomy, gastric bypass, tubal ligation. Past [...] with second degree uterine prolapse (Primary) - [facility] - [place], [place] - Measure post void residual 2. History of reconstructive repair of rectocele - [facility] - [place], [place] - Measure post void residual 3. Urge urinary incontinence - [facility] - [place], [place] - Measure post void residual She [...] good candidate for minimally invasive hysterectomy with [place] tissue repair. We will discuss further at her next visit. documented in this encounter [facility] 03-25-2025 Evaluation note Diagnosis Onset Date Resolution Carpal tunnel syndrome of right wrist acute March 25, 2 025 8:29am Cervical stenosis of spine acute March 25, 2 025 8:29am Piriformis syndrome of right side acute March 25, 2 025 8:29am [facility] Work Phone: 1(849) 260-853209-02-2025 Evaluation note* Diagnosis Onset Date Resolution Status [...] 2025 4:13pm Nicotine dependence acute 2024 4:13pm [facility] Work Phone: 1(765) 118-574408-05-2025 History of Present illness Narrative* Pascale Arana [...] for last several weeks, she has seen adjunct psychology instructor, meds changed and she is now [...] to start this process documented in this [facility]08-05-2025 Instructions* Patient Instructions* Pascale Arana NP - 02/25/2025 11:30 AM EDT Off work RTW date 03/25/25 documented in this [facility]08-04-2025 History of Present illness Narrative* Eunice Dias, [...] Sheis working with the pain specialist at [facility] in hopes to get an epidural [...] care as described above. [facility] [id number] History of Present illness Narrative* Shelia Muniz, [...] if mesh was utilized documented in this encounterSelect [facility] History of Present illness Narrative* Eunice Dias, [...] siblings and him having another family in [place]. She describes her mood as sad, anxious, [...] (11) who also lives there. 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 Has been with [employer] for 15 years. She states sheis currently [...] the local ER or call Suicide Hotline (674) for any psychosis, suicidal or homicidal ideation, or with any risk of harm to self or others. Patient was seen Face to Face, Total time spent with patient was 60 minutes, which includes reviewing chart documents, previous notes/records, counseling and discussion with patient and/or coordination of care as described above. documented in this encounterFulton State [id number] Telephone encounter Note* Telephone Encounter - Pascale Arana NP - 01/06/2025 6:12 PM EDT Pt states she was not contacted about her iron infusion can we check with [facility] about this [place] [facility] [id number] Miscellaneous Notes* Telephone Encounter - Pascale Arana NP - 01/06/2025 6:12 PM EDT Pt states she was not contacted about her iron infusion can we check with [facility] about this [place] documented in this encounterFulton State [id number] History of Present illness Narrative* Pascale Arana [...] possible Current med: pantoprazole documented in this [facility]06-16-2025 Instructions* Patient Instructions* Pascale Arana NP - 01/06/2025 4:30 PM EDT Discontinue the citalopram Start lamotrigine 1 pill at night for 2 weeks, then increase to 1 pill twice a day after that documented in this [facility]05-28-2025 Telephone encounter Note* Telephone Encounter - LIZANDRO PICKARD - 12/18/2024 10:48 AM EDT Tho. This is Steve at [facility] calling in regards to 1 of Pascale giraldo's patients. Her name is Talia Gipson, and we need to clarify some orders with her. She is supposed to be coming later today. Give us a call back as soon as possible. [phone], extension [phone],thank you. [facility] [id number] Miscellaneous Notes* Telephone Encounter - LIZANDRO PICKARD - 12/18/2024 10:48 AM EDT Tho. This is Steve at [facility] calling in regards to 1 of Pascale giraldo's patients. Her name is Talia Gipson, and we need to clarify some orders with her. She is supposed to be coming later today. Give us a call back as soon as possible. [phone], extension [phone],thank you. documented in this encounterFulton State [id number] History of Present illness Narrative* Pascale Arana [...] they will approve Infed, I did contact [facility] Pharmacy 11/19/24 they can order it, [...] nursing note reviewed. Exam conducted with a hardware engineer present. Constitutional: General: She is not [...] (Adipex-P) 37.5 MG tablet documented in this encounterFulton State [id number] Instructions* Patient Instructions* Pascale Arana NP - 11/20/2024 3:20 PM EDT Citalopram: currently on 40mg daily, cut pill in half so only at 20mg dose Stop the lanxoprazole, and will trial pantoprazole 40mg daily GERD and if not better at fu appt we will refer to GI We will call about PAP smear results documented in this encounterFulton State [id number] History of Present illness Narrative* Pascale Arana [...] Starting weight was 206 documented in this encounterFulton State [id number] History of Present illness Narrative* Pascale Arana [...] and sugary drinks. Pt meets qualifications of [facility] 4731-05-27 for weight loss. BMI>30 or [...] starting weight 200 lbs documented in this [facility]03-12-2025 Instructions* Patient Instructions* Pascale Arana NP - 10/02/2024 5:00 PM EDT Check labs Mammogram: will send to [place] Schedule PAP documented in this [facility]02-12-2025 Instructions* Patient Instructions* Angel Luis Groves NP - 09/04/2024 5:00 PM EST Keep up the good work!!! documented in this [facility]01-22-2025 Telephone encounter Note* Telephone Encounter - Nupur Oneal - 08/14/2024 11:46 AM EST Patient said her dose was increased and now she is out of this medication. Can you please refill. ANAYELI [facility] [id number] Miscellaneous Notes* Telephone Encounter - Nupur Jm - 08/14/2024 11:46 AM EST Patient said her dose was increased and now she is out of this medication. Can you please refill. ANAYELI documented in this encounterFulton State HospitalRoaxeinlfq73-19-4021 History of Present illness Narrative* Pascale Arana [...] Orders SUPERFICIAL WOUND (HTRX) documented in this [facility]01-20-2025 Instructions* Patient Instructions* Pascale Arana NP - 08/12/2024 4:00 PM EST Z pack, finish this Fluids, rest Cont layla and we will add flonase nasal spray Warm compress to affected area, will treat based on culture report documented in this [facility]01-08-2025 History of Present illness Narrative* Angel Luis [...] (Adipex-P) 37.5 MG tablet documented in this [facility]01-08-2025 Instructions* Patient Instructions* Angel Luis Groves NP - 07/31/2024 3:00 PM EST Notify office with any symptoms of chest pain, dyspnea, heart palpitations, or any anxiety symptoms. F/U in 4 weeks to document weight loss. Increase physical activity as tolerated, and lower caloricintake to 1600 calories daily if no contraindications. documented in this encounterFulton State [id number] History of Present illness Narrative* Angel Luis Germain, CONSTRUCTION EQUIPMENT MECHANIC HELPER - 09/04/2024 5:00 PM EST Images from [...] This Visit Bipolar disorder with severe depression (CMS/[facility]) Relevant Medications citalopram (CeleXA) 40 MG [...] daily if no contraindications. documented in this encounterFulton State [id number] Telephone encounter Note* Telephone Encounter - Mar Powers MA - 06/03/2024 9:10 AM EST Pt takes the 60mg in morning and 30 mg in the afternoon, so both. [facility] [id number] Miscellaneous Notes* Telephone Encounter - Mar Powers MA - 06/03/2024 9:10 AM EST Pt takes the 60mg in morning and 30 mg in the afternoon, so both. * Telephone Encounter - Nupur Oneal - 06/03/2024 8:50 AM EST Patient is asking for a 90 day supply. Patient said 60 mg were denied. documented in this encounterFulton State [id number] Telephone encounter Note* Telephone Encounter - Nupur Jm - 06/03/2024 8:50 AM EST Patient is asking for a 90 day supply. Patient said 60 mg were denied. [facility] [id number] History of Present illness Narrative* Angel Luis [...] pain has since resolved. documented in this encounterFulton State HospitalJnzkrlbqix15-52-0722 History of Present illness Narrative* Angel Luis [...] ABDOMINAL PAIN. PT SCHEDULED TO SEE GI [facility] ON 03/18 AT 1500. ). HPI IS here today for one week follow-up for constipation. Prescrivbed lacutlose at last visit-did not supervisor opening and picking. Went [place] to [place] [facility] [place] in [place] for the weekend and had X3 BM's. Denies blood in stool. States she has been stressed recentlty and feels being away heloped her relax and she was finally able to pass BM. Sees GI in [place] on Sunday 03/18 @ 3pm. Still has [...] with GI next week. documented in this encounterFulton State HospitalDkwzundvkc06-30-2634 Instructions* Patient Instructions* Angel Luis Groves NP - 03/12/2024 3:30 PM EDT Referral sent to Rheumatology- Dr. Muller in [place], [place]- they will call you! Have mammogram completed. Call if you need anything! documented in this encounterFulton State [id number] NoteChief Complaint consultation for colonoscopy HPI Staff [...] fibromyalgia, referred for severe anemia, admitted to [facility] in January with hb of 5; [...] mg Cap-DR, 30 mg= (more content not included)...[facility] HospitalComment on above:Result Comment: Electronically Signed By: AMIE WELLER, Segun Qureshi.meena\Date and Time Signed: 06/07/23 17:17 [id number] Evaluation + Plan note Diagnostic Tests Pending * Iron Level 06/07/23 * Ferritin 06/07/23 * Vitamin B12 Level 06/07/23 General Surgery [place] 09-15-2023 NoteCardiology Clinic Note Subjective Talia Rutherford [...] Palpitations -Resolved, likely exacerbated (more content not included)...[facility]09-15-2023 NotePatient here for 2 mo follow [...] Systems All other systems reviewed and are negative.[facility] 02-08-2023 NoteCardiovascular Medicine [place] [facility] SUBJECTIVE Chief Complaint Patient presents with [...] about 6 weeks (around 03/22/2023). Carol Webb APRN-ADJUNCT PROFESSOR OF LAW [facility]11-08-2022 Note PROCEDURE: XR FOOT LT MIN [...] Electronically authenticated by: TAMIKO NETTLES Date: 2022-05-31 20:30[facility]10-19-2022 NotePROCEDURE: XR FOOT LT MIN 3 [...] Electronically authenticated by: ELLIOT JOSE Date: 2022-05-11 16:14[facility]09-27-2022 NotePROCEDURE: XR FOOT LT MIN 3 [...] authenticated by: TAMIKO NETTLES Date: 2022-04-19 18:16[facility] [id number] NotePROCEDURE: XR FOOT LT MIN 3 VIEWS [...] authenticated by: TAMIKO NETTLES Date: 2022-03-30 06:41[facility] [id number] NotePROCEDURE: XR FOOT LT MIN 3 VIEWS [...] Electronically authenticated by: ELLIOT JOSE Date: 2022-03-11 08:26[facility]08-19-2022 NotePROCEDURE: XR FOOT LT 2V HISTORY: Pain COMPARISON: XR foot left 02/09/2022 FINDINGS: BONES:Multiple intraoperative images demonstrate mechanical fusion of the second and third tarsal-metatarsal joints. SOFT TISSUES:Expected intraoperative findings. EFFUSION:None visible. OTHER: Negative. IMPRESSION: 1. Mechanical fusion of second and third tarsal-metatarsal joints. Electronically authenticated by: ELLIOT JOSE Date: 2022-03-11 07:55[facility] [id number] NotePROCEDURE: XR FOOT LT MIN 3 VIEWS COMPARISON: 12/15/2020 HISTORY: Pain FINDINGS: BONES:No acute fracture or dislocation. Stable moderate degenerative changes most significant at the tarsometatarsal joints. Moderate plantar enthesopathic spurring of the calcaneus SOFT TISSUES:Negative. No visible soft tissue swelling. EFFUSION:None visible. OTHER: Negative. IMPRESSION: Stable moderate degenerative changes Electronically authenticated by: TAMIKO NETTLES Date: 2022-02-10 07:37[facility]02-07-2022 Evaluation note* Encounter Date Diagnosis Assessment [...] instructions given in writting by [facility] document [place] Other Evaluation note* Diagnosis Bipolar disorder with severe depression (CMS/HCC) documented in this encounter [facility] HealthcareEvaluation noteNo assessment information availableCleveland Clinic Marymount [...] gastric bypass Bipolar disorder with severe depression ([facility]/HCC) Encounter for screening mammogram for breast cancer- Primary Screening for diabetes mellitus Seizure-like activity ([facility]) Fluid level behind tympanic membrane of [...] deficiency anemia type documented in this encounter [facility] HealthcareEvaluation note* Diagnosis Breast screening- Primary [...] gastric bypass Bipolar disorder with severe depression ([facility]) Encounter for screening mammogram for breast cancer- Primary Screening for diabetes mellitus Seizure-like activity ([facility]) Fluid level behind tympanic membrane of [...] gastric bypass Bipolar disorder with severe depression ([facility]/HCC) Encounter for screening mammogram for breast cancer- Primary Screening for diabetes mellitus Seizure-like activity ([facility]/HCC) Fluid level behind tympanic membrane of [...] in full remission, most recent episode depressed ([facility]) Psychophysiological insomnia Persistent disorder of initiating or maintaining sleep B12 deficiency Fibromyalgia Unspecified myalgia and myositis Screening mammogram for breast cancer Bipolar disorder, current episode depressed, severe, without psychotic features ([facility]/HCC) Psychophysiological insomnia Persistent disorder of initiating or maintaining sleep Fibromyalgia Unspecified myalgia and myositis Iron deficiency anemia secondary to inadequate dietary iron intake B12 deficiency B12 deficiency- Primary Bipolar disorder, current episode depressed, severe, without psychotic features ([facility]/HCC) Psychophysiological insomnia Persistent disorder of initiating [...] gastric bypass Bipolar disorder with severe depression ([facility]/HCC) Encounter for screening mammogram for breast cancer- Primary Screening for diabetes mellitus Seizure-like activity ([facility]) Fluid level behind tympanic membrane of [...] 33.0-33.9,adult- Primary Bipolar disorder with severe depression ([facility]) Fibromyalgia Unspecified myalgia and myositis Gastro-esophageal reflux [...] in full remission, most recent episode depressed ([facility]) Psychophysiological insomnia Persistent disorder of initiating or maintaining sleep B12 deficiency Fibromyalgia Unspecified myalgia and myositis Screening mammogram for breast cancer Bipolar disorder with severe depression ([facility]/HCC)- Primary Psychophysiological insomnia Persistent disorder of initiating or maintaining sleep Fibromyalgia Unspecified myalgia and myositis Iron deficiency anemia secondary to inadequate dietary iron intake B12 deficiency Bipolar disorder, current episode depressed, severe, without psychotic features (CMS/HCC) B12 deficiency- Primary Bipolar disorder, current episode depressed, severe, without psychotic features ([facility]/HCC) Psychophysiological insomnia Persistent disorder of initiating [...] Primary Screening for diabetes mellitus Seizure-like activity ([facility]) Fluid level behind tympanic membrane of [...] 33.0-33.9,adult- Primary Bipolar disorder with severe depression ([facility]) Fibromyalgia Unspecified myalgia and myositis Gastro-esophageal reflux [...] of tympanic membranes documented in this encounter [facility] HealthcareEvaluation note* Diagnosis Breast screening- Primary [...] gastric bypass Bipolar disorder with severe depression ([facility]/HCC) Encounter for screening mammogram for breast cancer- Primary Screening for diabetes mellitus Seizure-like activity ([facility]/HCC) Fluid level behind tympanic membrane of [...] in full remission, most recent episode depressed ([facility]/HCC) Psychophysiological insomnia Persistent disorder of initiating [...] Primary Screening for diabetes mellitus Seizure-like activity ([facility]) Fluid level behind tympanic membrane of [...] and seasonal allergies documented in this encounter [facility] HealthcareEvaluation note* Diagnosis Breast screening- [...] Primary Screening for diabetes mellitus Seizure-like activity ([facility]/HCC) Fluid level behind tympanic membrane of [...] of tympanic membranes documented in this encounter [facility] HealthcareEvaluation note* Diagnosis Breast screening- Primary [...] gastric bypass Bipolar disorder with severe depression ([facility]) Encounter for screening mammogram for breast cancer- Primary Screening for diabetes mellitus Seizure-like activity ([facility]) Fluid level behind tympanic membrane of [...] BMI 32.0-32.9,adult Bipolar disorder with severe depression ([facility]) Well woman exam with routine gynecological exam- [...] in full remission, most recent episode depressed ([facility]) Psychophysiological insomnia Persistent disorder of initiating [...] of tympanic membranes documented in this encounter [facility] HealthcareEvaluation note* Diagnosis Breast screening- Primary [...] Primary Screening for diabetes mellitus Seizure-like activity ([facility]) Fluid level behind tympanic membrane of [...] of tympanic membranes documented in this encounter [facility] HealthcareEvaluation note* Diagnosis Breast screening- Primary [...] for drug screening documented in this encounter [facility] HealthcareEvaluation note* Diagnosis Breast screening- Primary [...] of tympanic membranes documented in this encounter [facility] HealthcareEvaluation note* Diagnosis Cystocele with second degree uterine prolapse- Primary History of reconstructive repair of rectocele Urge urinary incontinence Urge incontinence Incomplete emptying of bladder Incomplete bladder emptying Atrophic vaginitis Postmenopausal atrophic vaginitis documented in this encounter [facility] SystemEvaluation note* Diagnosis Breast screening- Primary Breast [...] of spine acute March 25, 2025 8:29am [facility] Work Phone: Evaluation note* Diagnosis Breast [...] incontinence Urge incontinence documented in this encounter [facility] SystemHistory general Narrative - Reported* Type Description Date Medical History anxiety Medical History [place] Other Hospital course Narrative No data available for this section General Surgery [facility] Discharge instructions No data available for this section General Surgery [facility] Instructions* Attachments The following attachments cannot be sent through Care Everywhere. * Pelvic floor muscle exercises (Burmese) documented in this encounterProSelect Medical [facility] Rehabilitation HospitalWunderdata SystemInstructionsNot on file documented in this encounterProLibraryThing SystemInstructionsNot on file documented in this encounterProLibraryThing SystemInstructionsNot on file documented in this encounterProLibraryThing SystemProgress note No data available for this section General Surgery [facility] Reason for referral (narrative)* Consultation (Routine) - Pending Review Specialty Diagnoses / Procedures Referred By Carlos white Referred To Contact Rheumatology Diagnoses Fibromyalgia Procedures IA OFFICE/OUTPATIENT NEW HIGH MDM 60 MINUTES Angel Luis Groves NP [address] [place], [place] [address] [place] [address] Tyson Collazo MD [address] [place] [address] Referral ID Status Reason Start Date Expiration Date Visits Requested Visits Authorized [id number] Pending Review Specialty Services Required 03/13/2024 09/09/2024 1 1 Scheduling Instructions Please include OV note from today And labs from 07/28/2023 [facility] HealthcareReason for referral (narrative)No reason for referral information availableParkview Health [facility] Work Phone: Reason for visit Narrative* Consultation (Routine) - Closed Specialty Diagnoses / Procedures Referred By Contact Referred To Contact Urogynecology / Gynecology Diagnoses Cystocele with second degree uterine prolapse History of reconstructive repair of rectocele Urge urinary incontinence Shelia Muniz, [address] [place] [address] Phone: tel:[phone] fax:[phone] Jovon Asif MD [address] [place] [address] Phone: tel:[phone] fax:[phone] Referral ID Status Reason Start Date Expiration Date V isits Requested Visits Authorized [id number] Closed Specialty Services Required 02/06/2025 02/06/2026 1 1 [facility] Summary Purpose Family History No Family [...] section and content) DATE CREATED AUTHOR 11/16/2018 [facility] DATE CREATED AUTHOR AUTHOR'S ORGANIZ ATION 06/05/2022 [facility] DATE CREATED AUTHOR AUTHOR'S ORGANIZ ATION 04/09/2023 [facility] DATE CREATED AUTHOR AUTHOR'S ORGANIZ ATION 03/20/2024 [facility] DATE CREATED AUTHOR AUTHOR'S ORGANIZ ATION 03/16/2025 [facility] DATE CREATED AUTHOR AUTHOR'S ORGANIZ ATION 2025 [facility] DATE CREATED AUTHOR AUTHOR'S ORGANIZ ATION 04/11/2025 [facility] EPIC DATE CREATED AUTHOR AUTHOR'S ORGANIZ ATION 05/04/2025 [facility] REASON FOR VISIT (unrecogniz ed [...] Bipolar disorder with severe depression (HCC) Procedures IA OFFICE/OUTPATIENT NEW HIGH MDM 60 MINUTES Pascale Arana, MARY JO [address] [place] [address] Phone: tel: fax: Eunice Dias, [facility]- [address] [facility] [address] [place] [address] Phone: tel: fax: Referral ID Status Reason Start Date Expiration Date V isits Requested Visits Authorized [id number] Closed Specialty Services Required 01/06/2025 07/05/2025 1 [...] team informatio n (unrecognized section and content) Rn Utilization Management Um Relationship Specialty Start Date End Date Shaikh Main MD PCP - General Internal Medicine 04/20/23 Team Status: Active Member Role Status Dates Conrad Ahn DO Attending Provider Active Sta rt: February 26, 2024 Team Status: Inactive Member Role Status Dates Tyson Collazo MD Attending Provider Active St art: April 18, 2024 End: April 18, 2024 Rn Utilization Management Um Relationship Specialty Start Date End Date Molina De Anda MD [address] [place] [address] PCP - General Family Medicine 02/21/24 Angel Luis Groves NP [address] [place] [address] Nurse Practitioner Family Medicine 02/21/24 Rn Utilization Management Um Relationship Specialty Start Date End Date Molina De Anda MD [address] [place] [address] PCP - General Family Medicine 02/21/24 Angel Luis Groves NP [address] [place] [address] Nurse Practitioner Family Medicine 02/21/24 Rn Utilization Management Um Relationship Specialty Start Date End Date Molina De Anda MD [address] [place] [address] PCP - General Family Medicine 02/21/24 Angel Luis Groves NP [address] [place] [address] Nurse Practitioner Family Medicine 02/21/24 Rn Utilization Management Um Relationship Specialty Start Date End Date Molina De Anda MD [address] [place] [address] PCP - General Family Medicine 02/21/24 Angel Luis Groves NP [address] [place] [address] Nurse Practitioner Family Medicine 02/21/24 Rn Utilization Management Um Relationship Specialty Start Date End Date Molina De Anda MD [address] [place] [address] PCP - General Family Medicine 02/21/24 Angel Luis Groves NP [address] [place] [address] Nurse Practitioner Family Medicine 02/21/24 Rn Utilization Management Um Relationship Specialty Start Date End Date Molina De Anda MD [address] [place] [address] PCP - General Family Medicine 02/21/24 Angel Luis Groves NP [address] [place] [address] Nurse Practitioner Family Medicine 02/21/24 Rn Utilization Management Um Relationship Specialty Start Date End Date Molina De Anda MD [address] [place] [address] PCP - General Family Medicine 02/21/24 Angel Luis Groves NP [address] [place] [address] Nurse Practitioner Family Medicine 02/21/24 Rn Utilization Management Um Relationship Specialty Start Date End Date Molina De Anda MD [address] [place] [address] PCP - General Family Medicine 02/21/24 Angel Luis Groves NP [address] [place] [address] Nurse Practitioner Family Medicine 02/21/24 Rn Utilization Management Um Relationship Specialty Start Date End Date Molina De Anda MD [address] [place] [address] PCP - General Family Medicine 02/21/24 Angel Luis Groves NP [address] [place] [address] Nurse Practitioner Family Medicine 02/21/24 Rn Utilization Management Um Relationship Specialty Start Date End Date Molina De Anda MD [address] [place] [address] PCP - General Family Medicine 02/21/24 Angel Luis Groves NP [address] [place] [address] Nurse Practitioner Family Medicine 02/21/24 Rn Utilization Management Um Relationship Specialty Start Date End Date Molina De Anda MD [address] [place] [address] PCP - General Family Medicine 02/21/24 Angel Luis Groves NP [address] [place] [address] Nurse Practitioner Family Medicine 02/21/24 Rn Utilization Management Um Relationship Specialty Start Date End Date Molina De Anda MD [address] [place] [address] PCP - General Family Medicine 02/21/24 Angel Luis Groves NP [address] [place] [address] Nurse Practitioner Family Medicine 02/21/24 Rn Utilization Management Um Relationship Specialty Start Date End Date Molina De Anda MD [address] [place] [address] PCP - General Family Medicine 02/21/24 Angel Luis Groves NP [address] [place] [address] Nurse Practitioner Family Medicine 02/21/24 Rn Utilization Management Um Relationship Specialty Start Date End Date Molina De Anda MD [address] [place] [address] PCP - General Family Medicine 02/21/24 Angel Luis Groves NP [address] [place] [address] Nurse Practitioner Family Medicine 02/21/24 Rn Utilization Management Um Relationship Specialty Start Date End Date Molina De Anda MD [address] [place] [address] PCP - General Family Medicine 02/21/24 Angel Luis Groves NP [address] [place] [address] Nurse Practitioner Family Medicine 02/21/24 Rn Utilization Management Um Relationship Specialty Start Date End Date Molina De Anda MD [address] [place] [address] PCP - General Family Medicine 02/21/24 Angel Luis Groves NP [address] [place] [address] Nurse Practitioner Family Medicine 02/21/24 Rn Utilization Management Um Relationship Specialty Start Date End Date Molina De Anda MD [address] [place] [address] PCP - General Family Medicine 02/21/24 Angel Luis Groves NP [address] [place] [address] Nurse Practitioner Family Medicine 02/21/24 Rn Utilization Management Um Relationship Specialty Start Date End Date Molina De Anda MD [address] [place] [address] PCP - General Family Medicine 02/21/24 Angel Luis Groves NP [address] [place] [address] Nurse Practitioner Family Medicine 02/21/24 Rn Utilization Management Um Relationship Specialty Start Date End Date Molina De Anda MD [address] [place] [address] PCP - General Family Medicine 02/21/24 Angel Luis Groves NP [address] [place] [address] Nurse Practitioner Family Medicine 02/21/24 Rn Utilization Management Um Relationship Specialty Start Date End Date Molina De Anda MD [address] [place] [address] PCP - General Family Medicine 02/21/24 Angel Luis Groves NP [address] [place] [address] Nurse Practitioner Family Medicine 02/21/24 Rn Utilization Management Um Relationship Specialty Start Date End Date Molina De Anda MD [address] [place] [address] PCP - General Family Medicine 02/21/24 Angel Luis Groves NP [address] [place] [address] Nurse Practitioner Family Medicine 02/21/24 Rn Utilization Management Um Relationship Specialty Start Date End Date Molina De Anda MD [address] [place] [address] PCP - General Family Medicine 02/21/24 Angel Luis Groves NP [address] [place] [address] Nurse Practitioner Family Medicine 02/21/24 Rn Utilization Management Um Relationship Specialty Start Date End Date Molina De Anda MD [address] [place] [address] PCP - General Family Medicine 02/21/24 Angel Luis Groves NP [address] [place] [address] Nurse Practitioner Family Medicine 02/21/24 Rn Utilization Management Um Relationship Specialty Start Date End Date Molina De Anda MD [address] [place] [address] PCP - General Family Medicine 02/21/24 Angel Luis Groves NP [address] [place] [address] Nurse Practitioner Family Medicine 02/21/24 Rn Utilization Management Um Relationship Specialty Start Date End Date Molina De Anda MD [address] [place] [address] PCP - General Family Medicine 02/21/24 Angel Luis Groves NP [address] [place] [address] Nurse Practitioner Family Medicine 02/21/24 Rn Utilization Management Um Relationship Specialty Start Date End Date Molina De Anda MD [address] [place] [address] PCP - General Family Medicine 02/21/24 Angel Luis Groves NP [address] [place] [address] Nurse Practitioner Family Medicine 02/21/24 Rn Utilization Management Um Relationship Specialty Start Date End Date Molina De Anda MD [address] [place] [address] PCP - General Family Medicine 02/21/24 Angel Luis Groves NP [address] [place] [address] Nurse Practitioner Family Medicine 02/21/24 Rn Utilization Management Um Relationship Specialty Start Date End Date Molina De Anda MD [address] [place] [address] PCP - General Family Medicine 02/21/24 Angel Luis Groves NP [address] [place] [address] Nurse Practitioner Family Medicine 02/21/24 Rn Utilization Management Um Relationship Specialty Start Date End Date Molina De Anda MD [address] [place] [address] PCP - General Family Medicine 02/21/24 Angel Luis Groves NP [address] [place] [address] Nurse Practitioner Family Medicine 02/21/24 Rn Utilization Management Um Relationship Specialty Start Date End Date Molina De Anda MD [address] [place] [address] PCP - General Family Medicine 02/21/24 Angel Luis Groves NP [address] [place] [address] Nurse Practitioner Family Medicine 02/21/24 Rn Utilization Management Um Relationship Specialty Start Date End Date Molina De Anda MD [address] [place] [address] PCP - General Family Medicine 02/21/24 Angel Luis Groves NP [address] [place] [address] Nurse Practitioner Family Medicine 02/21/24 Rn Utilization Management Um Relationship Specialty Start Date End Date Molina De Anda MD [address] [place] [address] PCP - General Family Medicine 02/21/24 Angel Luis Groves NP [address] [place] [address] Nurse Practitioner Family Medicine 02/21/24 Rn Utilization Management Um Relationship Specialty Start Date End Date Molina De Anda MD [address] [place] [address] PCP - General Family Medicine 02/21/24 Angel Luis Groves NP [address] [place] [address] Nurse Practitioner Family Medicine 02/21/24 Rn Utilization Management Um Relationship Specialty Start Date End Date Molina De Anda MD [address] [place] [address] PCP - General Family Medicine 02/21/24 Angel Luis Groves NP [address] [place] [address] Nurse Practitioner Family Medicine 02/21/24 Rn Utilization Management Um Relationship Specialty Start Date End Date Molina De Anda MD [address] [place] [address] PCP - General Family Medicine 02/21/24 Angel Luis Groves NP [address] [place] [address] Nurse Practitioner Family Medicine 02/21/24 Rn Utilization Management Um Relationship Specialty Start Date End Date Molina De Anda MD [address] [place] [address] PCP - General Family Medicine 02/21/24 Angel Luis Groves NP [address] [place] [address] Nurse Practitioner Family Medicine 02/21/24 Rn Utilization Management Um Relationship Specialty Start Date End Date Molina De Anda MD [address] [place] [address] PCP - General Family Medicine 02/21/24 Angel Luis Groves NP [address] [place] [address] Nurse Practitioner Family Medicine 02/21/24 Rn Utilization Management Um Relationship Specialty Start Date End Date Molina De Anda MD [address] [place] [address] PCP - General Family Medicine 02/21/24 Angel Luis Groves NP [address] [place] [address] Nurse Practitioner Family Medicine 02/21/24 Rn Utilization Management Um Relationship Specialty Start Date End Date Molina De Anda MD [address] [place] [address] PCP - General Family Medicine 02/21/24 Angel Luis Groves NP [address] [place] [address] Nurse Practitioner Family Medicine 02/21/24 Rn Utilization Management Um Relationship Specialty Start Date End Date Molina De Anda MD [address] [place] [address] PCP - General Family Medicine 02/21/24 Angel Luis Groves NP [address] [place] [address] Nurse Practitioner Family Medicine 02/21/24 [facility] [address] [facility] [place] [address] Nurse Practitioner Behavioral Health 01/22/25 Rn Utilization Management Um Relationship Specialty Start Date End Date Molina De Anda MD [address] [place] [address] PCP - General Family Medicine 02/21/24 Angel Luis Groves NP [address] [place] [address] Nurse Practitioner Family Medicine 02/21/24 [facility] [address] [facility] [place] [address] Nurse Practitioner Behavioral Health 01/22/25 Rn Utilization Management Um Relationship Specialty Start Date End Date Molina De Anda MD [address] [place] [address] PCP - General Family Medicine 02/21/24 Angel Luis Groves NP [address] [place] [address] Nurse Practitioner Family Medicine 02/21/24 Eunice Dias [facility] [address] [facility] [address] [place] [address] Nurse Practitioner Behavioral Health 01/22/25 Rn Utilization Management Um Relationship Specialty Start Date End Date No Pcp, [place] [address] PCP - General Family Medicine 11/21/18 Rn Utilization Management Um Relationship Specialty Start Date End Date Molina De Anda MD [address] [place] [address] PCP - General Family Medicine 02/21/24 Angel Luis Groves, MARY JO [address] [place] [address] Nurse Practitioner Family Medicine 02/21/24 Eunice Dias [facility] [address] [facility] [place] [address] Nurse Practitioner Behavioral Health 01/22/25 Rn Utilization Management Um Relationship Specialty Start Date End Date Molina De Anda MD [address] [place] [address] PCP - General Family Medicine 02/21/24 Angel Luis Groves, CONSTRUCTION EQUIPMENT MECHANIC HELPER [address] [place] [address] Nurse Practitioner Family Medicine 02/21/24 Eunice Dias [facility] [address] [facility] [place] [address] Nurse Practitioner Behavioral Health 01/22/25 Rn Utilization Management Um Relationship Specialty Start Date End Date Molina De Anda MD [address] [place] [address] PCP - General Family Medicine 02/21/24 Angel Luis Groves NP [address] [place] [address] Nurse Practitioner Family Medicine 02/21/24 Eunice Dias [facility] [address] [facility] [address] [place] [address] Nurse Practitioner Behavioral Health 01/22/25 Rn Utilization Management Um Relationship Specialty Start Date End Date Molina De Anda MD [address] [place] [address] PCP - General Family Medicine 02/21/24 Angel Luis Groves NP [address] [place] [address] Nurse Practitioner Family Medicine 02/21/24 Eunice Dias [facility] [address] [facility] [facility] [address] [place] [address] Nurse Practitioner Behavioral Health 01/22/25 Rn Utilization Management Um Relationship Specialty Start Date End Date Molina De Anda MD [address] [place] [address] PCP - General Family Medicine 02/21/24 Angel Luis Groves NP [address] [place] [address] Nurse Practitioner Family Medicine 02/21/24 Eunice Dias [facility] [address] [facility] [address] [place] [address] Nurse Practitioner Behavioral Health 01/22/25 Rn Utilization Management Um Relationship Specialty Start Date End Date No Pcp, [place] [address] PCP - General Family Medicine 11/21/18 Rn Utilization Management Um Relationship Specialty Start Date End Date Molina De Anda MD [address] [place] [address] PCP - General Family Medicine 02/21/24 Angel Luis Groves NP [address] [place] [address] Nurse Practitioner Family Medicine 02/21/24 Eunice Dias [facility] [address] [address] [place] [address] Nurse Practitioner Behavioral Health 01/22/25 Rn Utilization Management Um Relationship Specialty Start Date End Date Molina De Anda MD [address] [place] [address] PCP - General Family Medicine 02/21/24 Angel Luis Groves NP [address] [place] [address] Nurse Practitioner Family Medicine 02/21/24 Eunice Dias [facility] [address] [address] [place] [address] Nurse Practitioner Behavioral Health 01/22/25 Rn Utilization Management Um Relationship Specialty Start Date End Date Molina De Anda MD [address] [place] [address] PCP - General Family Medicine 02/21/24 Angel Luis Groves NP [address] [place] [address] Nurse Practitioner Family Medicine 02/21/24 [facility] [address] [address] [place] [address] Nurse Practitioner Behavioral Health 01/22/25 Rn Utilization Management Um Relationship Specialty Start Date End Date Molina De Anda MD [address] [place] [address] PCP - General Family Medicine 02/21/24 Angel Luis Groves NP [address] [place], [place] [address] Nurse Practitioner Family Medicine 02/21/24 [facility] [address] [facility] [address] [place] [address] Nurse Practitioner Behavioral Health 01/22/25 Rohan Waters LPC [employer]phalt Paving Machine Operator Behavioral Health 03/06/25 Team Status: Active Member Role Status Dates Pascale Arana Primary Care Provider Active Team Status: Inactive Member Role Status Dates Shun Arshad MD Attending Provider Active Star t: March 25, 2025 End: March 25, 2025 Pascale Arana Primary Care Provider Active Sta rt: March 25, 2025 End: March 25, 2025 Rn Utilization Management Um Relationship Specialty Start Date End Date Molina De Anda MD PCP - General Family Medicine 02/21/24 Angel Luis Groves NP Nurse Practitioner Family Medicine 02/21/24 [facility] [address] [facility] [address] [place] [address] Nurse Practitioner Behavioral Health 01/22/25 Rohan Waters LPC Asphalt Paving Machine Operator Behavioral Health 03/06/25 Rn Utilization Management Um Relationship Specialty Start Date End Date Molina De Anda MD PCP - General Family Medicine 02/21/24 Angel Luis Groves NP Nurse Practitioner Family Medicine 02/21/24 [facility] [address] [facility] [address] [place] [address] Nurse Practitioner Behavioral Health 01/22/25 Rohan Waters LPC Asphalt Paving Machine Operator Behavioral Health 03/06/25 Rn Utilization Management Um Relationship Specialty Start Date End Date Molina De Anda MD PCP - General Family Medicine 02/21/24 Angel Luis Groves, CONSTRUCTION EQUIPMENT MECHANIC HELPER Nurse Practitioner Family Medicine 02/21/24 [facility] [address] [facility] [address] [place] [address] Nurse Practitioner Behavioral Health 01/22/25 Rohan Waters LPC Asphalt Paving Machine Operator Behavioral Health 03/06/25 Rn Utilization Management Um Relationship Specialty Start Date End Date Pascale Arana, PHYSICIAN OFFICE REP-ADJUNCT PROFESSOR [place] [address] PCP - General Nurse Practitioner 04/02/25 Rn Utilization Management Um Relationship Specialty Start Date End Date Molina De Anda MD PCP - General Family Medicine 02/21/24 Angel Luis Groves NP Nurse Practitioner Family Medicine 02/21/24 Eunice Dias [facility] [address] [facility] [address] [place] [address] Nurse Practitioner Behavioral Health 01/22/25 Rohan Waters LPC Asphalt Paving Machine Operator Behavioral Health 03/06/25 Rn Utilization Management Um Relationship Specialty Start Date End Date Molina De Anda MD PCP - General Family Medicine 02/21/24 Angel Luis Groves NP Nurse Practitioner Family Medicine 02/21/24 Eunice Dias [facility] [address] [facility] [address] [place] [address] Nurse Practitioner Behavioral Health 01/22/25 Rohan Waters LPC Asphalt Paving Machine Operator Behavioral Health 03/06/25 Team Status: Active Member Role Status Dates JAVIER Malik Primary Care Provider Active Team Status: Inactive Member Role Status Dates Shun Arshad MD Attending Provider Active Star t: March 25, 2025 End: March 25, 2025 JAVIER Malik Primary Care Provider Active Start: March [...] April 30, 2025 End: April 30, 2025 Rn Utilization Management Um Relationship Specialty Start Date End Date Pascale Arana APRN-JASON [address] [place] [place] [address] PCP - General Nurse Practitioner 04/02/25 Goals [...] BE BASED ON THE PRIMARY CLINICAL RECORDS. [employer] provides no warranty or guarantee of the accuracy or completeness of information in this document.
== END 2025-05-05 07:30 | disposition home or self-care (01) ==
PROVIDERS: PCP Nurse Practitioner; Visit Provider Nurse Practitioner
DX: M79.7 Fibromyalgia (principal); K21.9 Gastro-esophageal reflux disease without esophagitis; D50.9 Iron deficiency anemia, unspecified; F17.200 Nicotine dependence, unspecified, uncomplicated; E66.09 Other obesity due to excess calories; E66.811 Obesity, class 1; Z98.84 Bariatric surgery status
CPT/HCPCS: 36415; 80053; 80061; 81001; 82306; 82607; 82728; 83540; 83550; 84466; 85025

== ENCOUNTER 2025-05-14 15:23 | Outpatient (OUT) | payer OTHER, SELFPAY ==
--- OUTSIDE RECORDS SUMMARY | 2024-09-03 11:30 | XMS_ITS ---
Author Organization The [facility] in [place] Address [address] [place] [address] Care Team Providers Care Conductor Orchestra Name Role Phone None, Unknown or Primary Care Provider Unavailab Mathew Lee Unavailable [phone] REASON FOR VISIT Left foot, surgical discussion about removal of hardware Encounters Encounter Location Date Provider Diagnosis [facility] (PODIATRY) [address] [place] [address] [place] [address] 09/03/2024 Mathew Hoff Left foot pain M79.672 Assessments Encounter Date Diagnosis (ICD Code) Assessment Notes Treatment Notes Treatment Clinical Notes Section Notes 09/03/2024 Left foot pain (ICD-10 - M79.672 ) Plan Of Treatment Pending Test Test Name Order Date XR Foot LT (3 views) * 09/03/2024 Progress Notes * Talia RUTHERFORDDOB:[birth year] (55 yo F)Acc No.[id number]:09/03/2024 UNLOCKED PROGRESS NOTE Follow Up Patient: Talia FREED :?Mathew Hoff DPLashaun, MSDOB:1970???Age: 54 Y???Sex:FemaleDate:09/03/2024Phone:[phone]:270 [address]IDA [id number]:Unknown or None Subjective: * Chief Complaints: * 1 . Left foot, surgical discussion about removal of hardware. * Medical History: Objective: * Vitals: Assessment: * Assessment: 1.?Left foot pain - M79.672??? Plan: * Treatment: ?Imaging: XR Foot LT (3 views) * * * Electronic signature of Mathew Hoff DPM on 05/14/2025 at 03:37 PM EDTSign off status: PendingVisit Status:?N/S N/C (No Show/No Charge) * Provider: Miguel Hoff DPM, MS Date: 0 09/03/2024 Generated for Printing/Faxing/eTransmitting on:?05/14/2025 03:37 PM EDT
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
--- OUTSIDE RECORDS SUMMARY | 2025-05-14 15:34 | XMS_ITS | CCD ---
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 Role Phone PHYSICIAN, DEFAULT Admitting [...] Consulting Unavailable HILLBASHIR Consulting Unavailable HIGHLANDER, TAWANA oDng Admitting Unavailable HIGHLANDER, TAWANA Dong Attending Unavailable TYLER, DR VILLALOBOS Primary Care Unavailable DAMON, DR ELLIOT Denis Consulting Unavailable HIGHLSHAMIKA, TAWANA Dong Consulting Unavailable AGUBOSIMEYAL Consulting Unavailable [...] Attending Unavailable SHAIKH MAIN Primary Care Physician [phone] Shaikh Main MD Primary Care Provider Ron Palomares Attending Unavailable Segun HOLLOWAY Attending Unavailable Segun HOLLOWAY Attending Unavailable MD Tyson Collazo Attending Provider Molina De Anda MD Primary Care Provider [place] SENIOR WATER RESOURCES ENGINEER, Angel Luis Unavailable [phone] [place] SENIOR WATER RESOURCES ENGINEER, Angel Luis Unavailable Arun PMHNP-BCEunice Unavailable No Pcp, No Pcp Primary Care Provider UnavailRohan Crooks LPC Unavailable Unavailable Shun Arshad MD Attending Provider [phone] Pascale Arana Primary Care Provider [phone] Molina De Anda MD Primary Care Provider Germain SENIOR WATER RESOURCES ENGINEER, Angel Luis Unavailable SHELIA MUNIZ Attending Unavailable NO PCP, NO PCP Primary Care Unavailable JOVON ASIF Attending Unavailable SHELIA MUNIZ Referring Unavailable PASCALE ARANA Primary Care Unavailable Derrickhdes MEDICAID SERVICE COORDINATOR-JASON, Pascale Cuenca Primary Care Provider ANGEL LUIS GROVES Attending Unavailabl e AICHHOLZ, PASCALE Attending Unavailable AICHHOLZ, PASCALE Attending Unavailable AICHHOLZ, PASCALE Attending Unavailable AICHHOLZ, PASCALE Attending Unavailable EUNICE DIAS Attending Unavailable SUMIT, PASCALE Referring Unavailable EUNICE DIAS Attending Unavailable SUMIT, PASCALE Attending Unavailable ROHAN WATERS Attending Unavailable ROHAN WATERS Attending Unavailable EUNICE DIAS Attending Unavailable ROHAN WATERS Attending Unavailable ANGEL LUIS GROVES Attending Unavailabl e DERRICKHHOLZ, PASCALE Attending Unavailable Aichholz SENIOR WATER RESOURCES ENGINEER-C, Pascale Cuenca Primary Care Provider Shun Arshad MD Other Provider Loc Aguayo MD Attending Provider Pascale Ochoa Attending Provider [phone] Shun Arshad Attending Unavailable Shun Arshad Admitting Unavailable Pascale Arana Primary Care Unavailable Clinton Del Toro APRN Attending Provider [phone] Meek WELLER, Flores Gutierrez Attending Unavailable Gilbertoitis , Andzhao Gutierrez Attending Unavailable Meek WELLER, Andzhao Gutierrez Attending Unavailable Allergies Allergy ClassificationReported Allergen(s)Allergy TypeDate of OnsetReaction(s) Facility (6 sources)penciclovir; Translations: [penciclovir]Drug Hsftsui87-64-1482qslclK[facility] (10 sources)Penicillins; Translations: [PENICILLINS]Drug allergy (disorder) 64-44-2403EordgAywWilson [facility] (20 sources)Penicillin GDrug Gewmlem23-88-8639WgzbbxlFLDI Healthcare (20 sources)PenicillinsPropensity to adverse ainmnymow81-48-2366CgcpeFOLE Healthcare (4 sources)PenicillinsPropensity to adverse reactions to jlav67-14-3028LhbsjCorewell Health [facility] Work Phone: (1 source)PenicillinsDrug allergy (disorder)05-44-6015HfekkbbtwParma Community [facility] Medications Current Medications MedicationDrug Class(es)DatesSig (Normalized)Sig (Original)[id number] 200 actuat albuterol 0.09 mg/actuat metered dose inhaler (20 sources)beta2-Adrenergic AgonistStart: 57-21-1108gsgo 1 puff(s) by inhalation every six hours as needed for wheezingStart: 03-25-2025 End: 30-32-1360Uqcgfrost Sulfate 90 mcg/actuation HFA aerosol inhaler Discontinued INHALATION March 25, 2025 12:00am April 01, 2025 11:38am Start: 02-06-2025 End: 11-53-4427anfa 2 puff(s) by inhalation every six hours as neededalbuterol (PROVENTIL HFA;VENTOLIN HFA) 90 mcg/actuation inhaler Inhale 2 puffs every 6 (six) hours as needed. 02/06/2025 03/08/2025 ActiveStart: 01-14-2025 End: 46-21-4587hfyq 2 puff(s) by inhalation every six hours for wheezing albuterol HFA 90 mcg/act inhaler Indications: URTI (acute upper respiratory infection) , Non-recurrent acute suppurative otitis media of both ears without spontaneous rupture of tympanic membranes Inhale 2 puffs every 6 (six) hours if needed for wheezing 8 g 1 02/06/2025 ActiveStart: 02-29-2024 End: 66-10-1583dorq 2 puff(s) by inhalation every four hours for wheezing albuterol HFA 90 mcg/act inhaler Indications: URTI (acute upper respiratory infection) , Non-recurrent acute suppurative otitis media of both ears without spontaneous rupture of tympanic membranes Inhale 2 puffs every 4 (four) hours if needed for wheezing 18 g 12/20/2024 01/14/2025 DiscontinuedARIPiprazole 10 mg oral tablet (2 sources)Atypical AntipsychoticStart: 99-80-6542qlzx 1 tablet by mouth once dailyaripiprazole 10 mg Tab 10 mg = 1 tab(s), Oral, Daily, Refills(s) 0 Start Date: 05/24/23 Status: OrderedARIPiprazole Activecariprazine 4.5 mg oral capsule (20 sources)Atypical AntipsychoticStart: 04-03-2025 End: 30-62-2395sdcy 1 capsule by mouth once dailyStart: 04-01-2025 End: 25-40-8608svbn 1 capsule by mouth once dailyCariprazine HCl (Vraylar) 1.5 MG capsule Indications: Severe episode of recurrent major depressive disorder, without psychotic features (HCC) Take 1 capsule by mouth Daily for 3 days 3 capsule 04/01/2025 04/03/2025 DiscontinuedStart: 02-24-2025 End: 10-75-3389Hjynemlyeet (Vraylar) 3 mg capsule Discontinued MG PO March 25, 2025 12:00am April 26259912:23amStart: 01-22-2025 End: 63-88-9353dxqz 1 capsule by mouth once dailyCariprazine HCl (Vraylar) 1.5 MG capsule Indications: Severe episode of recurrent major depressive disorder, without psychotic features (HCC) Take 1.5 mg by mouth Daily 30 capsule 01/22/2025 02/24/2025 Discontinuedcholecalciferol 0.125 mg oral capsule (4 sources)Vitamin DStart: 56-46-7093Tgzymoeu 30 mg Cap-DR (2 sources)Start: 41-24-0413seyp 1 capsule by mouth once dailyCymbalta 30 mg Cap-DR = 1 cap(s), Oral, Daily, Refills(s) 0 Start Date: 05/24/23 Status: Ordered DULoxetine 60 mg delayed release oral capsule (20 sources)Serotonin and Norepinephrine Reuptake InhibitorStart: 03-13-2024 End: 09-52-5503Hoyjo: 02-29-2024 End: 05-74-5521Stsxv: 07-03-2023 End: 04-22-3128yfkb 1 capsule by mouth in the morningDULoxetine (Cymbalta) [address] capsule Indications: Fibromyalgia Take 1 capsule (60 mg) by mouth inthe morning. 30 capsule 2 07/03/2023 10/01/2023 Activeestradiol 0.1 mg/ml vaginal cream (19 sources)EstrogenStart: 55-34-7118Yonhq: 64-76-1147nqspnwyeU (ESTRACE) 0.01 % (0.1 mg/gram) vaginal cream Indications: Cystocele with second degree uterine prolapse , History of reconstructive repair of rectocele , Urge urinary incontinence Apply peasized amount ( 1.5 g) to vaginal introitus nightly for 4 weeks then 1-2 times per week thereafte 42.5 g 2 02/06/2025 ActiveStart: 59-62-3506crbtpcpdf (Estrace) 0.1 MG/GM vaginal cream Insert 1.5 g into the vagina 2 (two) times a week 02/06/2025 Activeeszopiclone 1 mg oral tablet (3 sources)Start: 04-10-2024 End: 35-27-6459jkyg 1 tablet by mouth at bedtimeeszopiclone (Lunesta) 1 MG tablet Indications: Psychophysiological insomnia Take 1 tablet (1 mg) bymouth at bedtime Take immediately before bedtime 30 tablet 2 04/10/2024 05/27/2024 Discontinued (Ineffective)ferrous sulfate 325 mg oral tablet (2 sources)Start: 23-59-1943aowl 1 tablet by mouth once dailyferrous sulfate 325 mg Tab 325 mg = 1 tab(s), Oral, Daily, Refills(s) 0 Start Date: 05/24/23 Status: Orderedfluconazole 150 mg oral tablet (1 source)Azole AntifungalStart: 08-14-2023 End: 90-27-2136gfln 1 tablet by mouth every weekfluconazole (Diflucan) 150 MG tablet Indications: Antibiotic-induced yeast infection Take 1 tablet (150 mg) by mouth 1 (one) time per week for 14 days 2 tablet 0 08/14/2023 08/28/2023 Active fluticasone propionate 0.05 mg/actuat metered dose nasal spray (20 sources)CorticosteroidStart: 65-82-3541Ebvlk: 14-73-2687ypds 2 spray(s) nasal route in the morningfluticasone propionate (FLONASE) 50 mcg/actuation nasal spray Administer 2 sprays into each nostrilin the morning. 11/18/2024 ActiveStart: 08-12-2024 End: 47-95-6751dwon 2 spray(s) nasal route once dailyfluticasone (Flonase) 50 MCG/ACT nasal spray Indications: Environmental and seasonal allergies Administer 2 sprays into each nostril Daily Shake gently. Before first use, prime pump. After use, cleantip and replace cap. 16 g 5 11/18/2024 Activelactulose 667 mg/ml oral solution (4 sources)Osmotic LaxativeStart: 03-06-2024 End: 25-32-0923ssvq 20 g by mouth at bedtimelactulose (Chronulac) 10 GM/15ML solution Indications: Constipation, unspecified constipation type Take 30 mL (20 g) by mouth in the morning and 30 mL (20 g) before bedtime. Do all this for 10 days. 600 mL 03/06/2024 03/16/2024 Activelansoprazole 30 mg delayed release oral capsule (20 sources)Proton Pump InhibitorStart: 12-21-2024 End: 26-83-2716pqgpkznsxgga (Prevacid) [address] capsule Take 15 mg by mouth in the morning. Take before meals. 12/21/2024 01/06/2025 Discontinued (Therapy completed)Start: 05-24-2023 End: 66-42-4549Epmiylasouan Activemeloxicam 15 mg oral tablet (20 sources)Nonsteroidal Anti-inflammatory DrugStart: 09-84-7171Bwtgyjigb Active 24 hr mirabegron 50 mg extended release oral tablet (2 sources)beta3-Adrenergic AgonistStart: 80-90-1382ekpf 1 tablet by mouth once dailyStart: 39-21-6501voie 1 tablet by mouth every twenty-four hours in the morningmirabegron (MYRBETRIQ) 50 mg tablet extended release 24 hr Indications: Cystocele with second degree uterine prolapse , History of reconstructive repair of rectocele , Urge urinary incontinence Take 1 tablet (50 mg total) by mouth in the morning. 30 tablet 5 05/02/2025 Activepantoprazole 40 mg delayed release oral tablet (20 sources)Proton Pump InhibitorStart: 11-20-2024 End: 27-12-2179atqb 1 tablet by mouth once dailypantoprazole (ProtoNix) 40 MG EC tablet Indications: Gastroesophageal reflux disease, unspecified whether esophagitis present Take 1 tablet (40 mg) by mouth Daily Do not crush, chew, or split. 90 tablet 11/20/2024 02/26/2025 Discontinued (Ineffective)Start: 02-29-2024 End: 30-04-9873wcdl 1 tablet by mouth once dailypantoprazole (ProtoNix) 40 MG EC tablet Indications: Gastro-esophageal reflux disease without esophagitis Take 1 tablet (40 mg) by mouth Daily 90 tablet 02/29/2024 08/12/2024 Discontinued (Therapy completed)pregabalin (1 source)Pregabalin Activesucralfate 1000 mg oral tablet (20 sources)Aluminum ComplexStart: 69-74-4824palp 1 tablet by mouth once before mealtimeStart: 02-26-2024 End: 36-99-5613tfsd 1 tablet by mouth every six hours as neededsucralfate (Carafate) 1 g tablet Take 1 g by mouth every 6 (six) hours if needed 02/26/2024 08/12/2024 Discontinued (Therapy completed)sulfamethoxazole 800 mg / trimethoprim 160 mg oral tablet (11 sources)Dihydrofolate Reductase Inhibitor Antibacterial, Sulfonamide AntimicrobialStart: 11-14-2024 End: 31-35-1426hlrq 1 tablet by mouth every twelve hours for urinary tract infection and urinary tract infectionsulfamethoxazole-trimethoprim (Bactrim DS) 800-160 MG per tablet Indications: UTI (urinary tract infection), uncomplicated Take 1 tablet by mouth every 12 (twelve) hours for 7 days 14 tablet 11/14/2024 11/21/2024 ActiveSyringe 22G X 3/4 3 ML misc (1 source)Start: 08-14-2023 End: 19-18-1894Lvepvcc 22G X 3/4 3 ML misc Indications: B12 deficiency 1 each every 7 (seven) days 4 each 0 08/14/2023 09/13/2023 Activevitamin b12 1 mg oral tablet (20 sources)Vitamin P67Eowlv: 17-84-5748ropf 1 tablet by mouth once dailyStart: 95-04-6746mcuatt 1000 ug by intramuscular injection every week, then inject 1000 ug by intramuscular injection every monthCyanocobalamin (B-12 Compliance Injection) 1000 MCG/ML kit Indications: B12 deficiency 1000 mcg injection IM injections once weekly for 4 weeks, then 1000 mcg IM injection once a month 6 kit 0 08/04/2023 ActiveStart: 07-04-2023 End: 05-40-1676itqh 1 tablet by mouth in the morningcyanocobalamin (Vitamin B- 12) 1000 MCG tablet Indications: B12 deficiency Take 1 tablet (1,000 mcg)by mouth in the morning. 30 tablet 2 07/04/2023 10/02/2023 Activezolpidem tartrate 10 mg oral tablet (20 sources)gamma-Aminobutyric Acid-ergic AgonistStart: 89-38-1571Rpwdk: 07-29-2024 End: 23-32-4282Uvwszfwd 10 mg tablet Active MG PO March 25, 2025 12:00am Complies with drug therapyStart: 02-29-2024 End: 74-34-0913mjitgloa (Ambien) 10 MG tablet Indications: Psychophysiological insomnia Take 1 tablet (10 mg) by mouth as needed at bedtime for sleep 30 tablet 06/25/2024 07/25/2024 Discontinued (Reorder)Start: 07-04-2023 End: 45-95-6992ybrykkyc (Ambien) 10 MG tablet Indications: Psychophysiological insomnia Take 1 tablet (10 mg) by mouth as needed at bedtime for sleep 30 tablet 2 07/04/2023 10/02/2023 Active Completed/Discontinued Medications MedicationDrug Class(es)DatesSig (Normalized)Sig (Original)azithromycin 250 mg oral tablet (8 sources)Macrolide AntimicrobialStart: 08-12-2024 End: 54-98-6245zosrjonsfsdh (Zithromax) 250 MG tablet Indications: Acute non- recurrent maxillary sinusitis 2 pillsday #1, 1 pill day #2-#5 6 tablet 08/12/2024 09/04/2024 Discontinuedcitalopram 40 mg oral tablet (20 sources)Serotonin Reuptake InhibitorStart: 02-29-2024 End: 69-79-0140wmwo 1 tablet by mouth in the morningcitalopram (CeleXA) 40 MG tablet Indications: Bipolar disorder with severe depression (HCC) Take 1 tablet (40 mg) by mouth in the morning. 90 tablet 1 11/20/2024 01/06/2025 Discontinued (Therapy completed)Start: 08-14-2023 End: 14-71-0005wcxz 1 tablet by mouth in the morningcitalopram (CeleXA) 40 MG tablet Indications: Bipolar disorder with severe depression (CMS/HCC) Take 1 tablet (40 mg) by mouth in the morning. 90 tablet 0 08/28/2023 11/26/2023 Active Citalopram Hydrobromide Activecyclobenzaprine hydrochloride 10 mg oral tablet (20 sources)Muscle RelaxantStart: 01-20-2025 End: 96-54-0923Gwryzrwxlorbwwh 10 mg tablet Discontinued MG PO March 25, 2025 12:00am April 26, 2025 10:25amfexofenadine hydrochloride 180 mg oral tablet (20 sources)Histamine-1 Receptor AntagonistStart: 02-29-2024 End: 31-90-9359Pkquwodbebfb 180 mg tablet Discontinued MG PO March 25, 2025 12:00am April 07, 2025 8:37pmStart: 82-37-5267udzy 1 tablet by mouth once dailyAllegra D OTC 24HR 1 tab(s), Oral, Daily, Refill(s) 0 Start Date: 06/07/23 Status: Orderedtake 1 tablet by mouth in the morningfexofenadine (Layla Allergy) 180 MG tablet Take 180 mg by mouth in the morning. 0 Activegabapentin 300 mg oral capsule (20 sources)Anti-epileptic AgentStart: 11-18-2024 End: 79-26-2363Awdukrvkdx 300 mg capsule Discontinued MG PO March 25, 2025 12:00am April 26, 2025 10:25amStart: 06-11-2024 End: 25-12-1020kvxw 1 capsule by mouth in the morning, then take 1 capsule by mouth in the evening, then take 1 capsule by mouth at bedtimegabapentin (Neurontin) 300 MG capsule Indications: Fibromyalgia Take 1 capsule (300 mg) by mouth inthe morning and 1 capsule (300 mg) in the evening and 1 capsule (300 mg) before bedtime. 90 capsule5 11/18/2024 Activehyoscyamine sulfate 0.125 mg oral tablet (20 sources)Start: 02-26-2024 End: 10-55-8777hogz 1 tablet by mouth every six hours as neededhyoscyamine (Anaspaz,Levsin) 0.125 MG tablet Take 0.125 mg by mouth every 6 (six) hours if needed 02/26/2024 08/12/2024 Discontinued (Therapy completed)lamoTRIgine 25 mg oral tablet (19 sources)Mood Stabilizer, Anti-epileptic AgentStart: 01-22-2025 End: 83-34-1246mxndRKSigyj (LaMICtal) 25 MG tablet Indications: Bipolar disorder with severe depression (HCC) Take1 tablet (25 mg) by mouth Daily for 7 days 1 pill at bedtime for 7 weeks then stop medication 01/22/2025 02/24/2025 Discontinued (Therapy completed)Start: 01-06-2025 End: 22-65-3010qjwtLCNmkbn (LaMICtal) 25 MG tablet Indications: Bipolar disorder with severe depression (HCC) 1 pill at bedtime for 2 weeks, then increase to 1 pill twice a day 60 tablet 01/06/2025 Activemagnesium citrate 58.2 mg/ml oral solution (20 sources)Start: 02-26-2024 End: 77-02-5709ifqv 296 mL by mouth once dailyCVS Magnesium Citrate oral solution Take 296 mL by mouth Daily 02/26/2024 08/12/2024 Discontinued (Therapy completed)ondansetron 4 mg disintegrating oral tablet (20 sources)Serotonin-3 Receptor AntagonistStart: 02-26-2024 End: 81-73-9626njgy 1 tablet by mouth every four hours as needed for nausea ondansetron ODT (Zofran-ODT) 4 MG disintegrating tablet Take 4 mg by mouth every 4 (four) hours if needed for nausea 02/26/2024 08/12/2024 Discontinued (Therapy completed)24 hr oxybutynin chloride 10 mg extended release oral tablet (20 sources)Cholinergic Muscarinic Antagonist End: 30-19-4486gppj 1 tablet by mouth every twenty-four hours in the morning oxybutynin XL (Ditropan XL) 10 MG 24 hr tablet Take 10 mg by mouth in the morning. 08/12/2024 Discontinued (Therapy completed)phentermine hydrochloride 37.5 mg oral tablet (20 sources)Sympathomimetic Amine AnorecticStart: 07-31-2024 End: 48-72-3222ggda 1 tablet by mouth before mealtimephentermine (Adipex-P) 37.5 MG tablet Indications: BMI 32.0-32.9,adult , Class 1 obesity due to excess calories without serious comorbidity in adult, unspecified BMI Take 1 tablet (37.5 mg) by mouth in the morning. Take before meals. 30 tablet 11/20/2024 01/06/2025 Discontinued (Therapy completed)polyethylene glycol 3350 10270 mg powder for oral solution (9 sources)Osmotic LaxativeStart: 02-28-2024 End: 83-99-0443fqmhveswqfyd glycol, PEG, 3350 (MiraLax) 17 GM/SCOOP powder Indications: Constipation, unspecified constipation type Take 17 g by mouth Daily 578 g 2 02/28/2024 06/09/2024 Expiredsod sulf-pot chloride-mag sulf 1.479-0.188- 0.225 gram tablet (3 sources)Start: 02-13-2023 End: 56-28-1093mky sulf-pot chloride-mag sulf 1.479-0.188- 0.225 gram tablet See instructional sheet given by office. Patient was given a [employer] coupon voucher to use, this is not to be ran through patients insurance. 24 tablet 02/13/2023 2025 DiscontinuedStart: 72-38-8061mmz sulf-pot chloride-mag sulf 1.479-0.188- 0.225 gram tablet See instructional sheet given by office. Patient was given a [employer] coupon voucher to use, this is not to be ran through patients insurance. 24 tablet 02/13/2023 Stnjlf02 hr tolterodine tartrate 4 mg extended release oral capsule (20 sources)Cholinergic Muscarinic AntagonistStart: 12-21-2024 End: 29-90-4148nwhl 1 capsule by mouth every twenty-four hoursTolterodine 4 mg capsule,extended release 24hr Discontinued MG PO March 25, 2025 12:00am May 05, 2025 2:25pmStart: 05-24-2023 End: 39-62-1666njnd 1 capsule by mouth once dailytolterodine LA (Detrol LA) 4 MG 24 hr capsule Take 4 mg by mouth Daily 12/21/2024 ActiveTolterodine Tartrate ER Active Problems Active Problems Problem ClassificationProblemDateDocumented DateEpisodic/ChronicAbdominal pain (20 sources)Left upper quadrant pain; Translations: [Left upper quadrant pain] Onset: 04-55-0162KfnljkufDnyaqwb disorders (20 sources)Anxiety; Translations: [Generalized anxiety disorder]Onset: 956112-06-9469UgitnkrGyguhti dysrhythmias (2 sources)Palpitations; Translations: [Palpitations]Onset: 24-00-3193Vkgrpjdd Deficiency and other anemia (20 sources)Iron deficiency anemia; Translations: [Iron deficiency anemia, unspecified]Onset: 66-71-9596CfrbkhhkBmofyhutot and other anemia (10 sources)Iron deficiency anemia secondary to inadequate dietary iron intake; Translations: [Other iron deficiency anemias]98-49-5877WwinflmoTfbdfatedk disorders (20 sources)Gastroesophageal reflux disease; Translations: [Gastro-esophageal reflux disease without esophagitis]Onset: 143413-30-5566LizkakwObpywscmrm disorders (1 source)Esophageal disordersGenitourinary symptoms and ill-defined conditions (6 sources)Urge incontinence of urine; Translations: [Urge incontinence]Onset: 682861-01-1841CeqoimqUfakpqaxsczoq symptoms and ill-defined conditions (1 source)Incomplete emptying of bladder; Translations: [Retention of urine, unspecified]68-88-6409PqvkxrfoIguvrhyb; including migraine (20 sources)Menstrual status migrainosus; Translations: [Menstrual migraine, not intractable, with status migrainosus]Onset: 909434-61-2178YnqlfatUilnsbl and fatigue (20 sources)Malaise and fatigue; Translations: [Other malaise]Onset: 08-12-2024 47-29-7727UmodaonxOrrskiwunz disorders (20 sources)Menopausal flushing; Translations: [Menopausal and female climacteric states]Onset: 971839-00-9371QrltujmBhcltizoifesi mental health disorders (20 sources)Psychophysiologic insomnia; Translations: [Psychophysiologic insomnia]Onset: 755645-53-3742DjifdviCwax disorders (20 sources)Bipolar disorder; Translations: [Bipolar affective disorder, current episode depression]Onset: 07-04-2023 Resolved: 451714-32-7451DsmcrkwGgbhqje (20 sources)Opportunistic mycosis; Translations: [Candidiasis, unspecified] Onset: 166412-55-6858RcneumnnEezyhlhtuhm deficiencies (20 sources)Cobalamin deficiency; Translations: [Deficiency of other specified B group vitamins]Onset: 155877-05-8608YbexiocjTeonqerojiitol (5 sources)Primary osteoarthritis, left ankle and foot; Translations: [PRIMARY OSTEOARTHRITIS LT ANK FOOT]Onset: 36-60-8076EmcbnzsPaxpw acquired deformities (1 source)Contracture, left ankle; Translations: [CONTRACTURE LEFT ANKLE]Onset: 46-67-0501StzyvhlZlvge aftercare (1 source)Other termite 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 (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; Translations: [OTH SPLITTER TENDER CURRENT DRUG THERAPY]Onset: 42-34-5797ZbagqmtnUlwid connective tissue disease (4 sources)Pain in left foot; Translations: [PAIN IN LEFT FOOT]Onset: 05-31-2022 EpisodicOther connective tissue disease (20 sources)Fibromyalgia; Translations: [Fibromyalgia]Onset: 07-04-2023 01-11-2487ZbrqhepkTbdng connective tissue disease (20 sources)Plantar fasciitis of right foot; Translations: [Plantar fascial fibromatosis]Onset: 627318-96-4035MdaakzisIdach diseases of bladder and urethra (20 sources)Overactive bladder; Translations: [Overactive bladder]Onset: 11-13-2023 Resolved: 093074-23-2493BhggbawGxttq diseases of bladder and urethra (20 sources)Detrusor overactivity; Translations: [Overactive bladder]Onset: 458661-25-6592ZexcjnsDopdg diseases of bladder and urethra (20 sources)Overactive bladder due to prolapse of female genital organ; Translations: [Overactive bladder]Onset: 178656-98-5378BtmodeaUrrqf gastrointestinal disorders (2 sources)Bariatric surgery status; Translations: [BARIATRIC SURGERY STATUS] Onset: 86-52-8821VlnooeixCrecq gastrointestinal disorders (20 sources)History of bypass of stomach; Translations: [Bariatric surgery status]Onset: 050453-16-1902HvytwkouNvtnd gastrointestinal disorders (1 source)Constipation, unspecified; Translations: [Constipation, unspecified] Onset: 31-84-7260YyncffcvWndcr gastrointestinal disorders (20 sources)Constipation; Translations: [Constipation, unspecified]Onset: 747108-25-0872MwaxfirgWnyba gastrointestinal disorders (20 sources)History of gastrointestinal bleed; Translations: [Personal history of other diseases of the digestive system]Onset: 648633-64-6777Nlpuckko Other gastrointestinal disorders (2 sources)Abdominal bloating; Translations: [Abdominal distension (gaseous)] 41-65-4621JjqtfnqbXghdl lower respiratory disease (2 sources)Other forms of dyspnea; Translations: [Other forms of dyspnea]Onset: 00-11-4749BgicyufbIfzen lower respiratory disease (3 sources)Dyspnea; Translations: [Shortness of breath]01-20-1787KxslltrfGkcgm nervous system disorders (6 sources)Carpal tunnel syndrome of right wrist; Translations: [Carpal tunnel syndrome, right upper limb]99-17-3127MdgdxmzTvxgy nervous system disorders (6 sources)Right-sided piriformis syndrome; Translations: [Lesion of sciatic nerve, right lower limb]55-25-5057YhssepsRpcwj nervous system disorders (1 source)Carpal tunnel syndrome, right upper limb; Translations: [Carpal tunnel syndrome, right upper limb]Onset: 15-09-5527LhkuhuxXwahw non-traumatic joint disorders (1 source)Osteophyte, left foot; Translations: [OSTEOPHYTE LEFT FOOT]Onset: 98-27-5603KnhkcezmEqesg nutritional; endocrine; and metabolic disorders (2 sources)Obesity, unspecified; Translations: [Obesity, unspecified]Onset: 35-71-6994CirwqbxEpfdz nutritional; endocrine; and metabolic disorders (20 sources)Body mass index 30+ - obesity; Translations: [Body mass index (BMI) 34.0-34.9, adult]Onset: 07-31-2024 Resolved: 043093-75-0659SqkqlnxTsunk nutritional; endocrine; and metabolic disorders (2 sources)Tkjueke25-91-1689HzgdymiJpbep nutritional; endocrine; and metabolic disorders (20 sources)Obesity caused by energy imbalance; Translations: [Class 1 obesity due to excess calories without serious comorbidity in adult, unspecified BMI] Onset: 756072-38-2734CnirysfGutme screening for suspected conditions (not mental disorders or infectious disease) (20 sources)Abnormal electrocardiogram [ECG] [EKG]; Translations: [Patient encounter status]Onset: 02-08-2023 Resolved: 74-70-1792AktwguieWwrtz upper respiratory disease (20 sources)Allergic disposition; Translations: [Other allergic rhinitis]Onset: 053132-80-3320LxagrzuVhxvh upper respiratory disease (2 sources)Seasonal allergy; Translations: [Other seasonal allergic rhinitis] 17-75-3820NxsvcayDpuejbprsl and visceral atherosclerosis (3 sources)Peripheral vascular disease, unspecified; Translations: [Peripheral vascular disease]Onset: 083796-41-3345VvjztgePjuqdmqq of female genital organs (20 sources)Disorder of rectum; Translations: [Rectocele]Onset: 06-30-2023 82-00-3881IsibrymIgomcmjy codes; unclassified (20 sources)Sleep apnea; Translations: [Sleep apnea, unspecified]Onset: 933518-61-1770EymjliqXtsxwkoa codes; unclassified (1 source)Acquired absence of other specified parts of digestive tract; Translations: [ACQ ABSENCE OTH PART DIGESTV TRACT]Onset: 34-20-0113Bszghgub Residual codes; unclassified (2 sources)Localized edema; Translations: [Localized edema]Onset: 02-08-2023 EpisodicResidual codes; unclassified (1 source)Other specified postprocedural states; Translations: [Other specified postprocedural states]Onset: 35-44-8940HuuqmnaoZddwugvyulr; intervertebral disc disorders; other back problems (20 sources)Lumbosacral stenosis; Translations: [Spinal stenosis, lumbosacral region]Onset: 782371-32-7842AqsmqlrkDobpqdgeo-fgwswrt disorders (20 sources)Nicotine dependence, cigarettes, uncomplicated; Translations: [Nicotine dependence, unspecified, uncomplicated]Onset: 03-22-2022 Resolved: 19-68-3051YbeoissShcugvmwmoqk (4 sources)CONTACT W/AND (SUSP) EXPOS COVID-19; Translations: [CONTACT W/AND (SUSP) EXPOS COVID-19]Onset: 64-93-0521Icvsocsovjcp (2 sources)History of bypass of rtilufk93-72-5415Yjofhzlorjhv (20 sources)Patient on antidepressant monitoring planOnset: Unclassified (1 source)New PatientOnset: 02-06-2025 Past or Other Problems Problem ClassificationProblemDateDocumented DateEpisodic/ChronicAdjustment disorders (20 sources)Stress and adjustment reaction; Translations: [Reaction to severe stress, unspecified]Onset: 03-18-2024 Resolved: 94-12-7747KvhtfpgDctiahrptabvsz/social admission (20 sources)Stress; Translations: [Finding relating to psychosocial functioning] Onset: 08-12-2024 Resolved: 870128-34-4308WlzstwslCkunhjsg; convulsions (20 sources)Neurological finding; Translations: [Unspecified convulsions]Onset: 01-22-2024 Resolved: 401301-85-0562XdfwlxqkAveodobbthalr and screening for infectious disease (1 source)Contact with and (suspected) exposure to other viral communicable diseasesOnset: 08-30-2021 Resolved: 77-10-5503AawrosjgKvnpdtznw disorders (20 sources)Menorrhagia; Translations: [Excessive and frequent menstruation with regular cycle]Onset: 06-30-2023 Resolved: 591726-30-3060ItxfngvWfkb disorders (20 sources)Mood disordersOnset: 08-03-2023 Resolved: Other circulatory disease (1 source)Other specified symptoms and signs involving the circulatory and respiratory systems; Translations:[OTH SPEC SX SIGNS INVLV CIRC RS]Onset: 10-11-2452JlgxttuvAtbyo female genital disorders (20 sources)Female genital organ symptoms; Translations: [Unspecified condition associated with female genital organs and menstrual cycle]Onset: 08-12-2024 Resolved: 542635-35-5326GeshhczwHvejp upper respiratory infections (20 sources)Acute upper respiratory infection, unspecified; Translations: [Acute upper respiratory infection]Onset: 08-30-2021 Resolved: 69-26-9056JifmexsgZxajxz media and related conditions (20 sources)Acute suppurative otitis media without spontaneous rupture of ear drum; Translations: [Acute suppurative otitis media without spontaneous rupture of ear drum, bilateral]Onset: 01-08-2024 Resolved: 206960-63-5652IxlegyacDgvuthej codes; unclassified (20 sources)Insomnia; Translations: [Insomnia, unspecified]Onset: 07-04-2023 06-38-2161NsqvxemaPkic and subcutaneous tissue infections (20 sources)Abscess of groin; Translations: [Cutaneous abscess of groin]Onset: 08-15-2023 Resolved: 561995-10-0903IbhenyxbZwjtnozsbsgc (1 source)CONTACT W/AND (SUSP) EXPOS COVID-19; Translations: [CONTACT W/AND (SUSP) EXPOS COVID-19]Onset: 66-68-5089Jraqiooesirz (20 sources)Smoker; Translations: [Smoking]Onset: 08-12-2024 Resolved: 123684-59-3966Pzveppe tract infections (20 sources)Urinary tract infectious disease; Translations: [Urinary tract infection, site not specified]Onset: 11-14-2024 Resolved: 034810-94-7122Cuxhmlcr Results Test NameValueInterpretationReference RangeFacilityBasophils Auto (Bld) [#/Vol] Ordered By: Pascale Arana on 99-14-0436Rbtpvlxuk (Bld) [#/Vol]0.1 10 3/uL0.0-0.1 [facility] HospitalBasophils/100 WBC Auto (Bld)Ordered By: Pascale Arana on 53-70-9232Hgzcevllm/100 WBC (Bld)1.1 %0.2-2.0[facility] HospitalCholesterol in LDL Calc [Mass/Vol]Ordered By: Pascale Arana on 38-18-7450Cqifrinddrx in LDL [Mass/Vol]52.2 mg/dLParma Community General HospitalComment on above:<100 mg/dl OMACWAT162-399 mg/dl NEAR OR ABOVE OQZTCOE626- 159 mg/dl BORDERLINE STCB155-752 mg/dl HIGH>190 mg/dl VERY HIGHCholesterol in VLDL Calc [Mass/Vol]Ordered By: Pascale Arana on 40-39-7796Hgjljfhfwpb in VLDL [Mass/Vol]12.8 mg/dLParma Community General HospitalEosinophils/100 WBC Auto (Bld)Ordered By: Pascale Arana on 29-67-9700Aijgfkrodoo/100 WBC (Bld)6.2 % 0.9-7.0[facility] HospitalErythrocyte distribution width Auto (RBC) [Ratio]Ordered By: Pascale Arana on 68-67-5182Jhekzdbemnw distribution width (RBC) [Ratio]12.6 %11.0-15.0[facility] HospitalGlobulin Calc (S) [Mass/Vol]Ordered By: Pascale Arana on 61-55-5749Kgcnfyfj (S) [Mass/Vol]3.0 g/dLParma Community General HospitalGlomerular filtration rate (GFR) estimation in non- AmericanOrdered By: Pascale Arana on 05-05-2025 GFR/1.73 sq M.predicted among non-blacks MDRD (S/P/Bld) [Vol rate/Area] mL/min/{1.73_m2}>=60 mL/min/1.73m 2FMercy Health West HospitalHematocrit Auto (Bld) [Volume fraction]Ordered By: Pascale Arana on 93-10-8661Fysnvhamki (Bld) [Volume fraction]40.7 %36.0-48.0[facility] Hemoglobin [Mass/volume] in BloodOrdered By: Pascale Arana on 05-05-2025 Hemoglobin (Bld) [Mass/Vol]13.6 g/dL12.0-16.0[facility] Iron binding capacity [Mass/volume] in Serum or PlasmaOrdered By: Pascale Arana on 69-31-0970Chwq binding capacity [Mass/Vol]303.0 ug/dL250.0-450.0[facility] HospitalIron saturation [Mass Fraction] in Serum or PlasmaOrdered By: Pascale Arana on 29-48-0871Tnec saturation [Mass fraction]27.4 %[facility] HospitalLaboratory - Chemistry and Chemistry - challengeOrdered By: Pascale Arana on 39-91-1339Buissvt [Mass/Vol]3.6 g/dL3.4-5.0[facility] HospitalALP [Catalytic activity/Vol]95 U/I09-034CzuydgxqtParma Community General HospitalALT [Catalytic activity/Vol]25 U/O94-52HjkorbhxjParma Community General HospitalAST [Catalytic activity/Vol]23 U/S73-58OgvvjxrpnParma Community General HospitalBilirubin [Mass/Vol]0.3 mg/dL0.2-1.0[facility] Calcium [Mass/Vol]8.7 mg/dL8.5-10.1FMercy Health West HospitalChloride [Moles/Vol]105 mmol/D59-646RayckoknsParma Community General HospitalCholesterol [Mass/Vol]116 mg/dL<=200[facility] HospitalCholesterol in HDL [Mass/Vol]51 mg/iP03-22YhkwbtobvParma Community General HospitalComment on above:> or =60 mg/dl - LOW CARDIOVASCULAR RISK<40 mg/dl - HIGH CARDIOVASCULAR RISKCO2 [Moles/Vol]29.9 mmol/L21.0-32.0[facility] HospitalCreatinine [Mass/Vol]0.62 mg/dL0.55-1.02[facility] HospitalFerritin [Mass/Vol]30.0 ng/mL8.0-252.0[facility] HospitalGFR/1.73 sq M.predicted MDRD (S/P/Bld) [Vol rate/Area]mL/min/{1.73_m2}>=60 mL/min/1.73m 2 [facility] HospitalGlucose [Mass/Vol]77 mg/mQ24-509SxsmckkvuParma Community General HospitalIron [Mass/Vol]83.0 ug/dL50.0-170.0[facility] HospitalPotassium [Moles/Vol]4.0 mmol/L3.5-5.1FMercy Health West HospitalProtein [Mass/Vol]6.6 g/dL6.4-8.2FAvita Health System Ontario Hospitalodium [Moles/Vol]144 mmol/Z378-683MxlapgyquParma Community General HospitalTriglyceride [Mass/Vol]64 mg/dL<=150[facility] HospitalUrea nitrogen [Mass/Vol] 16.0 mg/dL7.0-18.0[facility] HospitalUrea nitrogen/Creatinine [Mass ratio]25.8 mg/mgParma Community General HospitalBilirubin Ql (U)Negative NEGATIVEPar[facility] General HospitalGlucose (U) [Mass/Vol]NegativeNEGATIVE [facility] HospitalKetones Ql (U)NegativeNEGATIVEParma Community General HospitalpH (U)6.0 [pH]5.0-9.0[facility] Specific gravity (U) [Rel density]<=1.464Jkuurkid5.005-1.025[facility] HospitalUrobilinogen Qn (U)0.2 {Genie'U}/dL0.2-1.0[facility] HospitalLaboratory - Hematology and Cell countsOrdered By: Pascale Arana on 94-67-4490Vjibeqad granulocytes/100 WBC (Bld)0.1 %0.0-0.5FMercy Health West HospitalLaboratory - Specimen informationOrdered By: Pascale Arana on 21-91-6051Btwcwyvhia (U)CLEARCLEARFMercy Health West HospitalColor (U)LT. YELLOWYELLOWParma Community General HospitalLaboratory - UrinalysisOrdered By: Pascale Arana on 18-29-3844Adfzcwind esterase Test strip Ql (U)NegativeNEGATIVE [facility] HospitalMucus Ql (Urine sed)NONE SEENNONE SEENPar[facility] General HospitalNitrite Ql (U)NegativeNEGATIVEParma Community General HospitalProtein Ql (U)NegativeNEG/TRACEParma Community General HospitalLeukocytes [#/volume] corrected for nucleated erythrocytes in Blood by Automated coun Ordered By: Pascale Arana on 55-23-8826GEC corrected for nucl RBC Auto (Bld) [#/Vol]7.0 10 3/uL4.0-11.0[facility] HospitalLymphocytes Auto (Bld) [#/Vol]Ordered By: Pascale Arana on 27-08-0299Xlrxwynnvbr (Bld) [#/Vol]2.7 10 3/uL1.2-3.8[facility] HospitalLymphocytes/100 WBC Auto (Bld) Ordered By: Pascale Arana on 19-54-1730Dggncoyosts/100 WBC (Bld)39.2 %20.5-60.[address] [facility] Auto (RBC) [Entitic mass]Ordered By: Pascale Arana on 66-17-0380CMG (RBC) [Entitic mass]32.2 pg26.7-34.0[facility] HospitalMC Auto (RBC) [Mass/Vol]Ordered By: Pascale Arana on 05-05-2025 MCHC (RBC) [Mass/Vol]33.4 g/dL29.9-35.2FMercy Health West HospitalMCV Auto (RBC) [Entitic vol]Ordered By: Pascale Arana on 96-80-5518QKA (RBC) [Entitic vol]96.4 fL81.0-99.0[facility] HospitalMonocytes Auto (Bld) [#/Vol]Ordered By: Pascale Arana on 64-97-2763Cdckoxcvc (Bld) [#/Vol]0.4 10 3/uL 0.3-0.8[facility] HospitalMonocytes/100 WBC Auto (Bld)Ordered By: Pascale Arana on 10-07-2891Gehjqsosm/100 WBC (Bld)5.2 %1.7-12.0[facility] HospitalNeutrophils Auto (Bld) [#/Vol]Ordered By: Pascale Arana on 71-07-7802Cfxtrldjkmy (Bld) [#/Vol]3.4 10 3/uL1.4-6.5FMercy Health West HospitalNeutrophils/100 WBC Auto (Bld)Ordered By: Pascale Arana on 60-92-0161Cbgsbmcjapz/100 WBC (Bld)48.2 %43.0-75.0[facility] HospitalNo Panel InformationOrdered By: Pascale Arana on 152701-Dhomppj Vitamin D Total69.7 ng/mLParma Community General HospitalComment on above:<20 ng/mL Vit D nztflichi86-<30 ng/mL Vit D urhperfhnpzv88-845 ng/mL Vit D sufficient>100 ng/mL Potential ToxicityEosinophils # (Auto)0.4 10 3/uL0.0-0.7 [facility] HospitalImmature Granulocyte # (Auto)0.01 10 3/uL 0.00-0.03[facility] HospitalUrine BacteriaTRACE #/HPFAbnormalNONE SEENParma Community General HospitalUrine Occult BloodNegativeNEGATIVEParma Community General HospitalUrine Other CastsNONE SEEN #/LPFNONE SEENParma Community General HospitalUrine Other CrystalsNone Seen #/HPFNone [facility] HospitalUrine RBCNONE SEEN #/HPF0-2FMercy Health West HospitalUrine Squamous Epithelial CellsFEW #/LPFAbnormalNONE/RAREParma Community General HospitalUrine WBCNONE SEEN #/HPFNONE [facility] CenterPlatelet mean volume Auto (Bld) [Entitic vol]Ordered By: Pascale Arana on 31-57-3025Iwsttzga mean volume (Bld) [Entitic vol]9.7 fL9.5-13.5 [facility] HospitalPlatelets Auto (Bld) [#/Vol]Ordered By: Pascale Arana on 86-07-2617Ykxutgkgx (Bld) [#/Vol]252 10 3/kP507-019QhmrjentdParma Community General HospitalRBC Auto (Bld) [#/Vol]Ordered By: Pascale Arana on 68-92-5342RUQ (Bld) [#/Vol]4.22 10 6/uL4.20-5.40[facility] Hospitalerum or plasma albumin/globulin mass ratioOrdered By: Pascale Arana on 01-89-1642Akykekr/Globulin [Mass ratio]1.2 {ratio}[facility] Hospitalerum or plasma anion gap determinationOrdered By: Pascale Arana on 82-73-9972Dqyoh gap [Moles/Vol]13.1 mmol/LFAvita Health System Ontario Hospitalerum or plasma total cholesterol/high density lipoprotein (HDL) cholesterol mass rat Ordered By: Pascale Arana on 90-71-2482Zylneuomacj.total/Cholesterol in HDL [Mass ratio]2.3 {ratio}[facility] HospitalComment on above:3.3 - 4.4 LOW RISK4.4 - 7.1 AVERAGE RISK7.1 - 11.0 MODERATE RISK>11.0 HIGH RISKALL CBC WITH AUTO DIFFon 25-61-7253EXOEZFSMS ABSOLUTE AUTO0.1[facility] Basophils/100 WBC (Bld)1.2 %0.2 - 2.0 %[facility] HealthcareEosinophils/100 WBC (Bld) 7.9 %High0.9 - 7.0 %[facility] HealthcareErythrocyte distribution width (RBC) [Ratio] 15.3 %High11.0 - 15.0 %[facility] HealthcareHematocrit (Bld) [Volume fraction]37.2 % 36.0 - 48.0 %[facility] HealthcareHemoglobin (Bld) [Mass/Vol]11.8 g/dLLow12.0 - 16.0 g/dLNONV HealthcareIMMATURE GRANULOCYTES ABS AUTO0.02[facility] HealthcareImmature granulocytes/100 WBC (Bld)0.3 %0.0 - 0.5 %NOM HealthcareInterpretation and review of laboratory resultsAbnormalNONV HealthcareLYMPHOCYTES ABSOLUTE AUTO2.3 NOM HealthcareLymphocytes/100 WBC (Bld)35.2 %20.5 - 60.0 %[facility] ServicesH (RBC) [Entitic mass]31.1 pg26.7 - 34.0 pgNOOzarks Community HospitalMCHC (RBC) [Mass/Vol] 31.7 g/dL29.9 - 35.2 g/dLNOOzarks Community HospitalMCV (RBC) [Entitic vol]98.2 fL81.0 - 99.0 fLNONV HealthcareMONOCYTES ABSOLUTE AUTO0.4[facility] HealthcareMonocytes/100 WBC (Bld)5.5 %1.7 - 12.0 %[facility] HealthcareNEUTROPHILS ABSOLUTE AUTO3.3[facility] Neutrophils/100 WBC (Bld)49.9 %43.0 - 75.0 %NOM HealthcarePlatelet mean volume (Bld) [Entitic vol]10 fL9.5 - 13.5 fLNOMS [facility] CenterTBH EO #0.5[facility] TBH WQL121ASFU [facility] RBC3.79LowNOMS [facility] CenterTB WBC6.6[facility] CLINISYNCNOOzarks Community HospitalSEGMENTAL BLOOD PRESSUREon 10-29-7857Jsl[place] [address] Cardiology Report Signed Patient: TALIA RUTHERFORD MR#: [id number] : 1970 Acct:[id number] Age/Sex: 54 / F ADM Date: 02/26/25 Loc: CARD Attending Dr: Kajal LAZAR Ordering Physician: Kajal Escobedo Date of Service: 02/26/25 Procedure(s): CA segmental UE or LE PONCE Accession Number(s): [id number] cc: Pascale Arana NP; Kajal Escobedo [facility] Test Date: 2025-02-26 Pat Name: TALIA RUTHERFORD Department: Room: - Gender: Female Lay Ups Assembler: Cari Nichole : 1970 Requested By: Kajal Escobedo Order Number: [id number] Reading MD: SCOTT PARKINSON M.D. Interpretive Statements [...] SCOTT PARKINSON Signed By: 02/27/25 0907 02/27/25 09 DD/ 1534 TD/TT: Die Maker Trim:TBHRadiology, Radiologist, - 02/27/2025 [place] [address] Cardiology Report Signed Patient: TALIA RUTHERFORD MR#: [id number] : 1970 Acct:[id number] Age/Sex: 54 / F ADM Date: 02/26/25 Loc: CARD Attending Dr: Kajal LAZAR Ordering Physician: Kajal Escobedo Date of Service: 02/26/25 Procedure(s): CA segmental UE or LE PONCE Accession Number(s): [id number] cc: Pascale Arana NP; Kajal Escobedo [facility] Test Date: 2025-02-26 Pat Name: TALIA RUTHERFORD Department: Room: - Gender: Female Lay Ups Assembler: Cari Nichole : 1970 Requested By: Kajal Escobedo Order Number: [id number] Reading MD: SCOTT PARKINSON M.D. Interpretive Statements [...] 02/27/25 0907 02/27/25 0907 DD/ 1534 TD/TT: Die Maker Trim: CHERYL MonteroSEENTAL BLOOD PRESSUREOrdered By: Radiologist Radiology on 89-06-6243FZNY [employer] Work Phone: SEGMENTAL BLOOD PRESSUREon 76-37-2182Ipaptdzvb Study observation (narrative)CHERYL MonteroXR FOOT LT MIN 3Von 88-33-2570Wfx[address] [address] XRay Report Signed Patient: TALIA RUTHERFORD MR#: [id number] : 1970 Acct:[id number] Age/Sex: 54 / F ADM Date: 02/19/25 Loc: RAD Attending Dr: Kajal [place] Ordering Physician: Kajal Escobedo Date of Service: 02/19/25 Procedure(s): XR foot LT min 3V Accession Number(s): [id number] cc: Pascale Arana NP; Kajal Escobedo [facility] [place] [id number] Patient Name: TALIA RUTHERFORD MRN: [facility]:[id number] date: 1970 Sex: F Assigned Patient Location: RAD Current Patient Location: RAD Accession/Order Number: [id number] Exam Date: 02/19/2025 10:39 Report Date: 02/19/2025 [...] Jr., D.O. 02/19/2025 3:03 PM Dictation Location: [place] [address] Electronically authenticated by: [id number] Y Date: 02/19/2025 15:03 Dictated By: Merlin Massey M.D. Signed By: 02/19/25 1506 DD/ 1503 TD/TT: Die Maker Trim:SILVINAHRadiology, Radiologist, MD - 02/19/2025 [place] [address] XRay Report Signed Patient: TALIA RUTHERFORD MR#: [id number] : 1970 Acct:[id number] Age/Sex: 54 / F ADM Date: 02/19/25 Loc: RAD Attending Dr: Kajal LAZAR Ordering Physician: Kajal Escobedo Date of Service: 02/19/25 Procedure(s): XR foot LT min 3V Accession Number(s): [id number] cc: Pascale Arana NP; Kajal Escobedo [address] [address] Patient Name: TALIA RUTHERFORD MRN: [id number] date: 1970 Sex: F Assigned Patient Location: RAD Current Patient Location: RAD Accession/Order Number: [id number] Exam Date: 02/19/2025 10:39 Report Date: 02/19/2025 [...] Jr. DConsueloOConsuelo 02/19/2025 3:03 PM Dictation Location: [place] [address] Electronically authenticated by: [id number] Y Date: 02/19/2025 15:03 Dictated By: Merlin Massey M.D. Signed By: 02/19/25 1506 DD/ 1503 TD/TT: Die Maker Trim: CHERYL HealthcareRadiology Study observation (narrative)[facility] HealthcareXR FOOT LT MIN 3VOrdered By: Radiologist Radiology on 91-15-8535[facility] Work Phone: MR Cervical spine WO contraston 70-31-9566Edt[address] [address] Magnetic Resonance Report Signed Patient: TALIA RUTHERFORD MR#: [id number] : 1970 Acct:[id number] Age/Sex: 54 / F ADM Date: 02/04/25 Loc: MRI Attending Dr: Flores Eden M.D. Ordering Physician: Flores Eden M.D. Date of Service: 02/04/25 Procedure(s): MR cervical spine wo con Accession Number(s): [id number] cc: Pascale Arana NP; Flores Eden M.D. [place] [address] Patient Name: TALIA RUTHERFORD MRN: [facility]:[id number] date: 1970 Sex: F Assigned Patient Location: MRI Current Patient Location: Accession/Order Number: [id number] Exam Date: 02/05/2025 12:10 Report Date: 02/05/2025 [...] Uncovertebral spurring greatest right. Moderate right and abzv-kg-eglvaagr left-sided neural foraminal narrowing. Mild canal narrowing. C5-6: Broad-based disc bulge with uncovertebral spurring, greatest left. Moderate right-sided moderate to severe left-sided neural foraminal narrowing. Mild central canal stenosis. C6-C7: Broad-based disc osteophyte complex with uncovertebral spurring. Cehu-fq-kjmbzxzc right moderate severe left neural foraminal narrowing. Bkxt-bu-ndevvaxi canal narrowing. C7-T1: Minimal vertebral hypertrophy. Moderate facet arthropathy. Canal and patent. Mild foraminal narrowing. MR/MR cervical spine wo con IMPRESSION: Overall multilevel degenerative changes with up to vgjx-cd-gcmvwyma central canal narrowing. Multilevel foraminal encroachment as noted above. Impression dictated by: Mushtaq Antony M.D. 02/05/2025 12:16 PM Dictation Location: [place] [address] Electronically authenticated by: [id number] Y Date: 02/05/2025 12:16 Dictated By: Mushtaq Antony M.D. Signed By: 02/05/25 1218 DD/ 1216 TD/TT: Die Maker Trim:TBHRadiology, Radiologist, MD - 02/05/2025 [place] [address] Magnetic Resonance Report Signed Patient: TALIA RUTHERFORD MR#: [id number] : 1970 Acct:[id number] Age/Sex: 54 / F ADM Date: 02/04/25 Loc: MRI Attending Dr: Flores Eden M.D. Ordering Physician: Flores Eden M.D. Date of Service: 02/04/25 Procedure(s): MR cervical spine wo con Accession Number(s): [id number] cc: Pascale Arana NP; Flores Eden M.D. [facility] [place] [id number] Patient Name: TALIA RUTHERFORD MRN: [id number] date: 1970 Sex: F Assigned Patient Location: MRI Current Patient Location: Accession/Order Number: [id number] Exam Date: 02/05/2025 12:10 Report Date: 02/05/2025 [...] Uncovertebral spurring greatest right. Moderate right and xpxe-pp-nzeprgoo left-sided neural foraminal narrowing. Mild canal narrowing. C5-6: Broad-based disc bulge with uncovertebral spurring, greatest left. Moderate right-sided moderate to severe left-sided neural foraminal narrowing. Mild central canal stenosis. C6-C7: Broad-based disc osteophyte complex with uncovertebral spurring. Kiva-rm-jwnvdlot right moderate severe left neural foraminal narrowing. Kwdv-lx-wgmhooks canal narrowing. C7-T1: Minimal vertebral hypertrophy. Moderate facet arthropathy. Canal and patent. Mild foraminal narrowing. MR/MR cervical spine wo con IMPRESSION: Overall multilevel degenerative changes with up to iupk-ss-fvordlsd central canal narrowing. Multilevel foraminal encroachment as noted above. Impression dictated by: Mushtaq Antony M.D. 02/05/2025 12:16 PM Dictation Location: [place] [address] Electronically authenticated by: [id number] Y Date: 02/05/2025 12:16 Dictated By: Mushtaq Antony M.D. Signed By: 02/05/25 1218 DD/ 1216 TD/TT: Die Maker Trim: CHERYL HealthcareRadiology Study observation (narrative)[facility] Cervical spine WO contrastOrdered By: Radiologist Radiology on 19-44-5166DPIR [employer] Work Phone: LUMBAR SPINE WO CONon [phone] [address] Magnetic Resonance Report Signed Patient: TALIA RUTHERFORD MR#: [id number] : 1970 Acct:[id number] Age/Sex: 54 / F ADM Date: 02/04/25 Loc: MRI Attending Dr: Flores Eden M.D. Ordering Physician: Flores Eden M.D. Date of Service: 02/04/25 Procedure(s): MR lumbar spine wo con Accession Number(s): [id number] cc: Pascale Arana NP; Flores Eden M.D. [place] [id number] Patient Name: TALIA RUTHERFORD MRN: [id number] date: 1970 Sex: F Assigned Patient Location: MRI Current Patient Location: Accession/Order Number: [id number] Exam Date: 02/05/2025 12:16 Report Date: 02/05/2025 [...] Circumferential disc bulge with moderate facet arthropathy. Apdj-gu-qqkskavq right-sided and mild left-sided neural foraminal narrowing . 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 Impression dictated by: Mushtaq Antony M.D. 02/05/2025 2:18 PM Dictation Location: [place] [address] Electronically authenticated by: [id number] Y Date: 02/05/2025 14:18 Dictated By: Mushtaq Antony M.D. Signed By: 02/05/25 1421 DD/ 1418 TD/TT: Die Maker Trim:JULIENadiologjaye, Radiologist, - 02/05/2025 [place] [address] Magnetic Resonance Report Signed Patient: TALIA RUTHERFORD MR#: [id number] : 1970 Acct:[id number] Age/Sex: 54 / F ADM Date: 02/04/25 Loc: MRI Attending Dr: Flores Eden M.D. Ordering Physician: Flores Eden M.D. Date of Service: 02/04/25 Procedure(s): MR lumbar spine wo con Accession Number(s): [id number] cc: Pascale Arana SENIOR WATER RESOURCES ENGINEER; Flores Eden M.D. [facility] [place] [id number] Patient Name: TALIA RUTHERFORD MRN: [id number] date: 1970 Sex: F Assigned Patient Location: MRI Current Patient Location: Accession/Order Number: [id number] Exam Date: 02/05/2025 12:16 Report Date: 02/05/2025 [...] Circumferential disc bulge with moderate facet arthropathy. Brzf-zx-hvdjuenv right-sided and mild left-sided neural foraminal narrowing . 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 Impression dictated by: Mushtaq Antony M.D. 02/05/2025 2:18 PM Dictation Location: [place] [address] Electronically authenticated by: [id number] Y Date: 02/05/2025 14:18 Dictated By: Mushtaq Antony M.D. 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0 %[facility] HealthcareHemoglobin (Bld) [Mass/Vol] 11.8 g/dLLow12.0 - 16.0 g/dLJORDAN VALLEY MEDICAL CENTER HealthcareIMMATURE GRANULOCYTES ABS AUTO0.01 [facility] HealthcareImmature granulocytes/100 WBC (Bld)0.2 %0.0 - 0.5 %[facility] HealthcareInterpretation and review of laboratory resultsAbnormalGolden Valley Memorial Hospital LYMPHOCYTES ABSOLUTE AUTO1.9NOMS [facility] CenterLymphocytes/100 WBC (Bld)32 %20.5 - 60.0 %[facility] ServicesH (RBC) [Entitic mass]28.6 pg26.7 - 34.0 pgHeartland Behavioral Health ServicesHC (RBC) [Mass/Vol]32.6 g/dL29.9 - 35.2 g/dLHeartland Behavioral Health ServicesV (RBC) [Entitic vol]87.9 fL81.0 - 99.0 fLGolden Valley Memorial HospitalMONOCYTES ABSOLUTE AUTO0.3NOMS HealthcareMonocytes/100 WBC (Bld)5.4 %1.7 - 12.0 %[facility] HealthcareNEUTROPHILS ABSOLUTE AUTO3.3NOMS HealthcareNeutrophils/100 WBC (Bld)54.5 %43.0 - 75.0 %[facility] HospitalPlatelet mean volume (Bld) [Entitic vol]9.6 fL9.5 - 13.5 fLJORDAN VALLEY MEDICAL [facility]ENTER HealthcareTBH EO #0.4NOMS HealthcareTBH [id number] HealthcareTBH RBC4.12LowNONV HealthcareTBH WBC6.1NOMS HealthcareCLINISYNCNOMS HealthcareIGP,APTIMA HPV,AGE GDLNon 56-26-8210DEF GDLN ACOG TESTINGNote.[facility] HealthcareComment on above:TESTS RESULT FLAG UNITS REF RANGE LAB Clinician Provided Cytology Information Source.............Cervix;Endocervix No. of containers..01 ThinPrep Vial Age Wilvero ACOG Fiorella... FLAG LEGEND: L-Low Normal,H-High Normal,LL-Alert Low,HH-Alert High <-Panic Low,>-Panic High,A-Abnormal,AA-Critical Abnormal Performed at: 01 =[address] [address] Monika Norton MD, HPV APTIMAPositiveAbnormalNegativeNOMS HealthcareComment on above:This nucleic acid amplification test detects fourteen high- risk HPV types (16,18,31,33,35,39,45,51,52,56,58,59,66,68) without differentiation. HPV GENOTYPE 16NegativeNegativeNOMS HealthcareHPV GENOTYPE 18,45NegativeNegative NOMS HealthcareComment on above:Performed at: =[address] [id number] Receiving Room Clerk: Monika Norton MD, Phone: [phone] Performed at: [address] [id number] Receiving Room Clerk: Monika Norton MD, Phone: [phone] IGP, APTIMA HPV, RFX 16/18,45Note.NOMS HealthcareComment on above:TESTS RESULT FLAG UNITS REF RANGE LAB DIAGNOSIS: 02 NEGATIVE FOR INTRAEPITHELIAL LESION OR MALIGNANCY. Specimen adequacy: 02 Satisfactory for evaluation. Endocervical and/or squamous metaplastic cells (endocervical component) are present. Performed by: Suresh Guerrero Medicare Sales Representative . 02 Note: Note 02 The Pap [...] Low,>-Panic High,A-Abnormal,AA-Critical Abnormal Performed at: [address] [address] Monika Norton MD, Interpretation and review of laboratory resultsAbnormExcela Frick Hospital BRUSH-ALONE CERVIX ENDOCERVIX CLINISYHardin County Medical CenterMM TOMOSYNTHESIS SCREENING BIon 45-09-7494[place]ny[place] [address] Mammography Report Signed Patient: TALIA RUTHERFORD MR#: [id number] : 1970 Acct:[id number] Age/Sex: 54 / F ADM Date: 10/23/24 Loc: MAMMO Attending Dr: Pascale Arana NP Ordering Physician: Pascale Arana NP Results: Date of Service: 10/23/24 Follow Up: Procedure(s): MM tomosynthesis screening BI Accession Number(s): [id number] cc: Pascale Arana NP Patient Name: TALIA RUTHERFORD MR#: [id number] : 1970 Exam Date: 10/23/2024 Ordering Doctor: [...] breast cancer at age 51. LOCATION: [facility] BREAST COMPOSITION: There are scattered [...] Signed By: 10/23/24 1555 DD/ 1555 TD/TT: Die Maker Trim:TBHRadiology, Radiologist, MD - 10/23/2024 [place] [address] Mammography Report Signed Patient: TALIA RUTHERFORD MR#: [id number] : 1970 Acct:[id number] Age/Sex: 54 / F ADM Date: 10/23/24 Loc: MAMMO Attending Dr: Pascale Arana NP Ordering Physician: Pascale Arana NP Results: Date of Service: 10/23/24 Follow Up: Procedure(s): MM tomosynthesis screening BI Accession Number(s): [id number] cc: Pascale Arana NP Patient Name: TALIA RUTHERFORD MR#: [id number] : 1970 Exam Date: 10/23/2024 Ordering Doctor: [...] breast cancer at age 51. LOCATION: [facility] BREAST COMPOSITION: There are scattered [...] M.D. Signed By: 10/23/241554 DD/ 54 TD/TT: Die Maker Trim: [facility] HOSPITALScottie [facility] CenterRadiology Study observation (narrative)[facility] HospitalMM TOMOSYNTHESIS SCREENING BIOrdered By: Radiologist Radiology on 19-07-1093ZTBZGolden Valley Memorial Hospital Work Phone: all CBC WITH AUTO DIFFon 95-60-4801NHSUMWYYA ABSOLUTE GNUQ8TDGUGolden Valley Memorial HospitalBasophils/100 WBC (Bld)0.8 %0.2 - 2.0 %[facility] Eosinophils/100 WBC (Bld)3.9 %0.9 - 7.0 %[facility] HospitalErythrocyte distribution width (RBC) [Ratio]14.2 %11.0 - 15.0 %[facility] HospitalHematocrit (Bld) [Volume fraction]32.9 %Low36.0 - 48.0 %[facility] HospitalHemoglobin (Bld) [Mass/Vol]10.6 g/dLLow12.0 - 16.0 g/dLGolden Valley Memorial HospitalIMMATURE GRANULOCYTES ABS FEKA0SEDAGolden Valley Memorial HospitalImmature granulocytes/100 WBC (Bld)0 %0.0 - 0.5 %[facility] Interpretation and review of laboratory resultsAbnormalGolden Valley Memorial Hospital LYMPHOCYTES ABSOLUTE AUTO1.6NOOzarks Community HospitalLymphocytes/100 WBC (Bld)31.7 %20.5 - 60.0 %[facility] ServicesH (RBC) [Entitic mass]29.5 pg26.7 - 34.0 pgHeartland Behavioral Health ServicesHC (RBC) [Mass/Vol]32.2 g/dL29.9 - 35.2 g/dLNOMS HealthcareMCV (RBC) [Entitic vol]91.6 fL81.0 - 99.0 fLNOMS HealthcareMONOCYTES ABSOLUTE AUTO0.4NOMS HealthcareMonocytes/100 WBC (Bld)7.2 %1.7 - 12.0 %[facility] HealthcareNEUTROPHILS ABSOLUTE AUTO2.8NOMS HealthcareNeutrophils/100 WBC (Bld)56.4 %43.0 - 75.0 %[facility] HealthcarePlatelet mean volume (Bld) [Entitic vol]10.5 fL9.5 - 13.5 fLNOMS HealthcareTBH EO #0.2NOMS HealthcareTBH [id number] HealthcareTBH RBC3.59LowNOMS HealthcareTBH WBC4.9NOMS HealthcareCLINISYNCNOMS HealthcareCT FOOT LT WO CONon 86-32-4432IbuLine[place], [place] [address] CT Scan Report Signed Patient: TALIA RUTHERFORD MR#: [id number] : 1970 Acct:[id number] Age/Sex: 54 / F ADM Date: 09/09/24 Loc: CT Attending Dr: Tawana Foster D.P.M. Ordering Physician: Tawana Foster D.P.M. Date of Service: 09/09/24 Procedure(s): CT foot LT wo con Accession Number(s): [id number] cc: ANGEL LUIS GROVES [place] [id number] Patient Name: TALIA RUTHERFORD MRN: [id number] date: 1970 Sex: F Assigned Patient Location: CT Current Patient Location: CT Accession/Order Number: [id number] Exam Date: 09/09/2024 15:56 Report Date: 09/09/2024 [...] Signed By: 09/09/24 174 DD/ 1739 TD/TT: Die Maker Trim:TBHRadiology, Radiologist, - 09/09/2024 [place] [address] CT Scan Report Signed Patient: TALIA RUTHERFORD MR#: [id number] : 1970 Acct:[id number] Age/Sex: 54 / F ADM Date: 09/09/24 Loc: CT Attending Dr: Tawana Foster D.P.M. Ordering Physician: Tawana Foster D.P.M. Date of Service: 09/09/24 Procedure(s): CT foot LT wo con Accession Number(s): [id number] cc: ANGEL LUIS GROVES [place] [id number] Patient Name: TALIA RUTHERFORD MRN: [id number] date: 1970 Sex: F Assigned Patient Location: CT Current Patient Location: CT Accession/Order Number: [id number] Exam Date: 09/09/2024 15:56 Report Date: 09/09/2024 [...] Cruz Meneses M.D. Signed By: 09/09/241741 DD/ 38 TD/TT: Die Maker Trim: CHERYL HealthcareRadiology Study observation (narrative)[facility] HealthcareCT FOOT LT WO CONOrdered By: Radiologist Radiology on 84-66-0055BUQX Healthcare Work Phone: XR FOOT LT MIN 3Von 65-96-5016[place]yg[place] [address] XRay Report Signed Patient: TALIA RUTHERFORD MR#: [id number] : 1970 Acct:[id number] Age/Sex: 54 / F ADM Date: 09/04/24 Loc: Attending Dr: Tawana Foster D.P.M. Ordering Physician: Tawana Foster D.P.M. Date of Service: 09/04/24 Procedure(s): XR foot LT min 3V Accession Number(s): [id number] cc: ANGEL LUIS GROVES; Tawana Foster D.P.M. [place] [id number] Patient Name: TALIA RUTHERFORD MRN: [id number] date: 1970 Sex: F Assigned Patient Location: Current Patient Location: Accession/Order Number: [id number] Exam Date: 09/04/2024 15:53 Report Date: 09/05/2024 [...] Signed By: 09/05/24 1019 DD/ 1016 TD/TT: Die Maker Trim:JULIENadiologjaye, Radiologist, - 09/05/2024 [place] [address] XRay Report Signed Patient: TALIA RUTHERFORD MR#: [id number] : 1970 Acct:[id number] Age/Sex: 54 / F ADM Date: 09/04/24 Loc: Attending Dr: Tawana Foster D.P.M. Ordering Physician: Tawana Foster D.P.M. Date of Service: 09/04/24 Procedure(s): XR foot LT min 3V Accession Number(s): [id number] cc: NASH GROVES Peter D.P.M. [place] [address] Patient Name: TALIA RUTHERFORD MRN: [id number] date: 1970 Sex: F Assigned Patient Location: Current Patient Location: Accession/Order Number: [id number] Exam Date: 09/04/2024 15:53 Report Date: 09/05/2024 [...] Signed By: 09/05/24 1019 DD/ 1016 TD/TT: Die Maker Trim: CHERYL HealthcareRadiology Study observation (narrative)[facility] HealthcareXR FOOT LT MIN 3VOrdered By: Radiologist Radiology on 50-55-8415XTKE Healthcare Work Phone: cHRONIC WOUND/ULCER (HTRX)on 35-87-5966RYWCQUQLBVMSC BAUMANNII (CHRONIC WOUND/ULCER)0NOMS HealthcareACINETOBACTER BAUMANNII (CHRONIC WOUND/ULCER)Not detectedNOMS HealthcareBACTEROIDES FRAGILIS, VULGATUS (CHRONIC WOUND/ULCER)0NOMS HealthcareBACTEROIDES FRAGILIS, VULGATUS (CHRONIC WOUND/ULCER) Not detectedNOMS HealthcareCITROBACTER FREUNDII (CHRONIC WOUND/ULCER)0NOMS HealthcareCITROBACTER FREUNDII (CHRONIC WOUND/ULCER)Not detectedNOMS Healthcare CLOSTRIDIUM PERFRINGENS, NOVYI, SEPTICUM (CHRONIC WOUND/ULCER)0[facility] CLOSTRIDIUM PERFRINGENS, NOVYI, SEPTICUM (CHRONIC WOUND/ULCER)Not detectedNOMS HealthcareCORYNEBACTERIUM JEIKEIUM, STRIATUM, TUBERCULOSTEARICUM (CHRONIC WOUND/HDUGM3ZSBB HealthcareCORYNEBACTERIUM JEIKEIUM, STRIATUM, TUBERCULOSTEARICUM (CHRONIC WOUND/ULCERNot detectedNOMS HealthcareCUTIBACTERIUM (PROPIONIBACTERIUM) ACNES (CHRONIC WOUND/ULCER)0NOMS HealthcareCUTIBACTERIUM (PROPIONIBACTERIUM) ACNES (CHRONIC WOUND/ULCER)Not detectedNOMS Healthcare ENTEROBACTER CLOACAE COMPLEX, KLEBSIELLA (ENTEROBACTER) AEROGENES (WZIEAKN1GFRP HealthcareENTEROBACTER CLOACAE COMPLEX, KLEBSIELLA (ENTEROBACTER) AEROGENES (CHRONICNot detectedNOMS HealthcareENTEROCOCCUS FAECALIS, FAECIUM (CHRONIC WOUND/ULCER)0NOMS HealthcareENTEROCOCCUS FAECALIS, FAECIUM (CHRONIC WOUND/ULCER) Not detectedNOMS HealthcareESCHERICHIA COLI (CHRONIC WOUND/ULCER)0NOMS HealthcareESCHERICHIA COLI (CHRONIC WOUND/ULCER)Not detectedNOMS Healthcare HERPES SIMPLEX VIRUS 10NOMS HealthcareHERPES SIMPLEX VIRUS 1Not detectedNOMS HealthcareHERPES SIMPLEX VIRUS 20NOMS HealthcareHERPES SIMPLEX VIRUS 2Not detectedNOMS HealthcareInterpretation and review of laboratory resultsAbnormal NOMS HealthcareKLEBSIELLA PNEUMONIAE, OXYTOCA (CHRONIC WOUND/ULCER)0NOMS HealthcareKLEBSIELLA PNEUMONIAE, OXYTOCA (CHRONIC WOUND/ULCER)Not detectedNOMS HealthcareP. ANAEROBIUS, P. ASACCAROLYTICUS, F. MAGNA, A. IDHHSYTZ4HWUK HealthcareP. ANAEROBIUS, P. ASACCAROLYTICUS, F. MAGNA, A. PREVOTIINot detected NOMS HealthcarePROTEUS MIRABILIS, VULGARIS (CHRONIC WOUND/ULCER)0[facility] Healthcare PROTEUS MIRABILIS, VULGARIS (CHRONIC WOUND/ULCER)Not detectedNOMS Healthcare PSEUDOMONAS AERUGINOSA (CHRONIC WOUND/ULCER)0NOMS HealthcarePSEUDOMONAS AERUGINOSA (CHRONIC WOUND/ULCER)Not detectedNOMS HealthcareS. agalactiae Org specific cx Ql (Vag fld)0NOMS HealthcareS. agalactiae Org specific cx Ql (Vag fld)Not detectedNOMS HealthcareSERRATIA MARCESCENS (CHRONIC WOUND/ULCER)0NOMS HealthcareSERRATIA MARCESCENS (CHRONIC WOUND/ULCER)Not detectedNOMS Healthcare STAPHYLOCOCCUS AUREUS (CHRONIC WOUND/ULCER)0NOMS HealthcareSTAPHYLOCOCCUS AUREUS (CHRONIC WOUND/ULCER)Not detectedNOMS HealthcareSTAPHYLOCOCCUS EPIDERMIDIS, HAEMOLYTICUS, LUGDUNENSIS, SAPROPHYTICUS (CHRON23.533AbnormalNOMS Healthcare STAPHYLOCOCCUS EPIDERMIDIS, HAEMOLYTICUS, LUGDUNENSIS, SAPROPHYTICUS (CHRON DetectedAbnormalNOMS HealthcareSTREPTOCOCCUS PYOGENES (GROUP A STREP) (CHRONIC WOUND/ULCER)0NOMS HealthcareSTREPTOCOCCUS PYOGENES (GROUP A STREP) (CHRONIC WOUND/ULCER)Not detectedNOMS HealthcareVARICELLA ZOSTER VIRUS (HUMAN HERPESVIRUS 3) (CHRONIC WOUND/ULCER)0NONV HealthcareVARICELLA ZOSTER VIRUS (HUMAN HERPESVIRUS 3) (CHRONIC WOUND/ULCER)Not detectedNOOzarks Community HospitalVIBRIO CHOLERAE, PARAHAEMOLYTICUS, VULNIFICUS (CHRONIC WOUND/ULCER)0NOOzarks Community HospitalVIBRIO CHOLERAE, PARAHAEMOLYTICUS, VULNIFICUS (CHRONIC WOUND/ULCER)Not detectedNOMosaic Life Care at St. Joseph HealthcareALL CBC WITH AUTO DIFFon 78-80-4244ZCRRTNKRY ABSOLUTE YYRR4QZXJ HealthcareBasophils/100 WBC (Bld)0.6 %0.2 - 2.0 %[facility] Eosinophils/100 WBC (Bld)0 %Low0.9 - 7.0 %[facility] HospitalErythrocyte distribution width (RBC) [Ratio]13.6 %11.0 - 15.0 %[facility] HospitalHematocrit (Bld) [Volume fraction]37.4 %36.0 - 48.0 %[facility] HospitalHemoglobin (Bld) [Mass/Vol]12.1 g/dL12.0 - 16.0 g/dLGolden Valley Memorial HospitalIMMATURE GRANULOCYTES ABS AUTO 0.01NOOzarks Community HospitalImmature granulocytes/100 WBC (Bld)0.2 %0.0 - 0.5 %[facility] HospitalInterpretation and review of laboratory resultsAbnormalNOOzarks Community Hospital LYMPHOCYTES ABSOLUTE AUTO1.1LowNOMS [facility] Medical CenterLymphocytes/100 WBC (Bld)19.9 %Low 20.5 - 60.0 %[facility] ServicesH (RBC) [Entitic mass]29.4 pg26.7 - 34.0 pgHeartland Behavioral Health ServicesHC (RBC) [Mass/Vol]32.4 g/dL29.9 - 35.2 g/dLHeartland Behavioral Health ServicesV (RBC) [Entitic vol]91 fL81.0 - 99.0 fLGolden Valley Memorial HospitalMONOCYTES ABSOLUTE AUTO0.2Low NOM HealthcareMonocytes/100 WBC (Bld)4.2 %1.7 - 12.0 %[facility] NEUTROPHILS ABSOLUTE AUTO4.1NOMS HealthcareNeutrophils/100 WBC (Bld)75.1 %High 43.0 - 75.0 %[facility] HospitalPlatelet mean volume (Bld) [Entitic vol]9.7 fL9.5 - 13.5 fLGolden Valley Memorial HospitalTBH EO #0NOCarondelet Health [id number] Health RBC 4.11LowNOCarondelet Health WBC5.4NOOzarks Community HospitalCLINISYNCNPHYSICIANS [facility] Healthcare Ambulatory Visit Summaryon 45-21-0087Ccdlhcvdtc Visit SummaryAmbulatory Visit Summary TALIA RUTHERFORD :1970 Visit Date:03/18/2024 [...] Cystoscopy(2017), Cholecystectomy, Repair of cystocele, Tubal ligation. Discharge [...] you for choosing us for your care. [facility] CenterGastroenterology Office/Clinic Noteon 83-53-3485Nqwskabnhofwdfqk Office/Clinic NoteGastroenterology Office/Clinic Note Chief Complaint ref by Germain [...] last 30 days Tobacco Use:. Former smokeless tobaccouser, quit more than 30 days ago Smokeless Tobacco Use:. Cigarettes, Vaping, 1.5 per day. Started age 16.0 Years. Yes, 06/07/2023 Family History Diabetes mellitus type 2: Mother, Father and Sister. Heart disease: Father. Immunizations Vaccine Date Status Comments influenza virus vaccine, inactivated - Not Given Patient RefusesWright-Patterson Medical CenterComment on above:Result Comment: Electronically Signed By: Jelani WELLER, Ron Valdovinos.br\Date and Time Signed: 03/18/2415:21 EDTOutside Colonoscopyon 10-51-1502Chmhiso Colonoscopy [id number]#1.00TIFMcCullough-Hyde Memorial HospitalReminderson 99-87-8041Kpcsnhazi From: Machelle Arauz LPN To: N - Clinical; Sent: 07/20/2023 10:55:11 EST Show up: 06/19/2033 07:00:00 EST Subject: colonoscopy recall Due Date/Time: 07/19/2033 07:00:00 EST Reminder/Recall Patient due for screening colonoscopy 07/19/2033.[facility] CenterLab Reportson 39-82-6902Lxf Reports [id number]#1.00TIFFWright-Patterson Medical CenterInsurance Correspondenceon 41-97-1634Ldxbnqjkw Correspondence [id number]#1.00TIFFWright-Patterson Medical CenterFacesheeton 56-78-1180Vpsfhekzy [id number]#1.00TIFMcCullough-Hyde Memorial HospitalPhysician Referralon 70-08-4259Bncwaapug Referral [id number]#1.00TIFMcCullough-Hyde Memorial HospitalAmbulatory Visit Summaryon 10-37-3517Muxtxyyhob Visit Summary TALIA RUTHERFORD :1970 Visit Date:06/07/2023 [...] Cystoscopy(2017), Cholecystectomy, Repair of cystocele, Tubal ligation. Discharge [...] you for choosing us for your care. [facility] CenterLab Reportson 85-16-3935Nyg [id number]#1.00TIFMcCullough-Hyde Memorial HospitalConsultation Noteon 83-21-9700Tseoiiskecbr Note [id number]#1.00TIFMcCullough-Hyde Memorial HospitalPhysician Referralon 16-57-6337Ylgecghpu Referral [id number]#1.00TIFMcCullough-Hyde Memorial HospitalOffice Visiton 68-13-4338Wmncrq-up [id number] Talia Rutherford 1970 Date Provider Department Center 04/07/202390171-TIWTNBEFKCAROL SHAH Family History Problem Relation Age of Onset Brain Aneurysm Mother 80 Diabetes Mother Heart failure Father 80 Diabetes Father Hypertension Father Diabetes Sister Family Status - Relation Status Age at Mother Father Sister Level of Service:[address] [place] OFFICE/OUTPATIENT ESTABLISHED MOD MDM 30-39 [facility]36on 68-01-969036LZC lab called to report critical HGB and hematocrit for patient: HGB was 5.1 and hematocrit is 18.9. I spoke with Talia and advised she go to the ED. She verbalized understanding and will do so.[facility] HospitalOffice Visiton 32-51-5445Hngzdp-up [id number] Talia Rutherford 1970 Date Provider Department Center 02/08/202390394-FWFIYVOBMCAROL SHAH Family History Problem Relation Age of Onset Brain Aneurysm Mother 80 Diabetes Mother Heart failure Father 80 Diabetes Father Hypertension Father Diabetes Sister Family Status - Relation Status Age at Mother Father Sister Level of Service:[address] [place] OFFICE/OUTPATIENT NEW MODERATE MDM 45-59 MINUTES Reason for Visit and Comments: Establish Care [42] - Swelling in both legs,right leg is itching and painful Shortness of Breath [014780] Dizziness [868523] Fatigue [46]NormalUnSycamore Medical CenterPREG HCG QUALon 03-10-2022 , QUALNegativeNormalNEGATIVEThe [facility] CenterComment on above: Performed By: #### PREG ####[facility] [address] [place], [place] [address]ZmDr. Moni JohnsonCovid-19 PCR (CVDTB)on 03-03-2022 SARS-CoV-2 (COVID-19) RNA EMMANUEL+probe Ql (Unsp spec)Not detectedNormalNOT DETECTED The [facility] CenterComment on above:Result Comment: This test is not yet approved or cleared by the [place] FDA. When there are no FDA-approved or cleared tests available, and other criteria are met, FDA can make tests available under an emergency access mechanism called an Emergency Use Authorization (EUA). The EUA for this test is supported by the [place] of Health and Human Service's (HHS's) declaration [...] of clinical signs and symptoms consistent with SARS-CoV-2.Performed By: #### CVDTBH #### [facility] [address] [place], [place] [address] Dr. Moni JohnsonPROF CHEM 8 (BAS METB)on 53-93-2961Oaebo gap [Moles/Vol]9.0 mmol/LNormalThe [facility] CenterComment on above:Performed By: #### BMP ####[facility] [address] [place], [place] [address]XvDr. Moni JohnsonCalcium [Mass/Vol]8.3 mg/dLCritically low8.5-10.1The [facility] CenterComment on above:Performed By: #### BMP ####[facility] [address] [place], [place] [address]Dr.Yilan ChangChloride [Moles/Vol]106 mmol/LSwkbiu65-527Olh [facility] CenterComment on above:Performed By: #### BMP ####[facility] [address] [place], [place] [address]Dr.Yilan ChangCO2 [Moles/Vol]29.2 mmol/AKkycpa61.0-32.0The [facility] CenterComment on above:Performed By: #### BMP ####[facility] [address] [place], [place] [address]Dr.Yilan ChangCreatinine [Mass/Vol]0.78 mg/dLNormal0.55-1.02The [facility] CenterComment on above: Performed By: #### BMP ####[facility] [address] [place], [place] [address]Dr.Yilan ChangEGFR-AF FILIPINO>60Normal>=60The [facility] CenterComment on above:Performed By: #### BMP ####[facility] [address] [place], [place] [address]Dr.Yilan ChangEGFR-NON AF FILIPINO>60Normal>=60The [facility] CenterComup health system on above:Performed By: #### BMP ####[facility] [address] [place], [place] [address]Dr. Yilan ChangGlucose [Mass/Vol]88 mg/sSLfdgfi38-430Kzc [facility] CenterComment on above:Performed By: #### BMP ####[facility] [address] [place], [place] [address]Dr.Yilan ChangPotassium [Moles/Vol]4.2 mmol/LNormal 3.5-5.1The [facility] CenterComment on above:Performed By: #### BMP ####[facility] [address] [place], [place] [address]Dr.Yilan Johnson Sodium [Moles/Vol]140 mmol/BQlxqqf885-056Vnx [facility] CenterComment on above: Performed By: #### BMP ####[facility] [address] [place], [place] [address]Dj.Moni ChangUrea nitrogen [Mass/Vol]21.0 mg/dL Critically high7.0-18.0[facility] HospitalComup health system on above:Performed By: #### BMP ####[facility] [address] [place], [place] [address]Kj. Yimaria a ChangUrea nitrogen/Creatinine [Mass ratio]26.9 mg/mgNoUniversity Hospitals Geneva Medical CenterComment on above:Performed By: #### BMP ####[facility] [address] [place], [place] [address]Ki.Yilan ChangCT FOOT LT WO CONon 69-69-0904KK FOOT LT WO CONEXAMINATION: CT FOOT LT WO CON HISTORY: Idiopathic [...] Electronically authenticated by: ELLIOT JOSE Date: 2022-02-22 18:32Memorial HospitalCOVID Quick Testingon 47-09-4226CmydpcPnixpeftZasaj PinMyPet Other Quick Fluon 51-73-3351UBCFQ Ab CF (S) [Titer]Negative Jobyal Other FLUBV Ab CF (S) [Titer]NegativeJBI Fish & Wings Other 404-0619Onumn-70 PCR ([facility])on 20-94-7720VJVZ-CoV-2 (COVID- 19) RNA EMMANUEL+probe Ql (Unsp spec)Not detectedNormalNOT DETECTEDThe [facility] CenterComment on above:Result Comment: This test is not yet approved or cleared by the [place] FDA. When there are no FDA-approved or cleared tests available, and other criteria are met, FDA can make tests available under an emergency access mechanism called an Emergency Use Authorization (EUA). The EUA for this test is supported by the [employer] Room of Health and Human Service's (HHS's) declaration [...] of clinical signs and symptoms consistent with SARS-CoV-2.Performed By: #### [facility] #### [facility] [address] [place] [address] Dr. Moni Johnson Vital Signs Date TimeVital SignValuePerforming OsifxjqxgOwknhjfx97-37-8205 14:29-0400Body .1 Corinna Arana SENIOR WATER RESOURCES ENGINEER-C Work Phone: [facility]10-13-2025 14:29-0400 Body mass index (BMI) [Ratio]29.2 kg/m2Lisa Derrickhholz SENIOR WATER RESOURCES ENGINEER-C Work Phone: [facility]10-13-2025 14:29-0400 Body igrzxx08.83 kgLisa Derrickhholz SENIOR WATER RESOURCES ENGINEER-C Work Phone: [facility]10-13-2025 14:29-0400 Diastolic blood jgxxzbim89 mm[Hg]Pascale Arana SENIOR WATER RESOURCES ENGINEER-C Work Phone: 1(419)547-[address] [place], [place] 0206210-13-2025 14:29-0400 Heart rate83 /minLisa Aichholz SENIOR WATER RESOURCES ENGINEER-C Work Phone: 1(396)304-[address] [place], [place] [address]206210-13-2025 14:29-0400 Systolic blood imlnohcj45 mm[Hg]Pascale Aichholz SENIOR WATER RESOURCES ENGINEER-C Work Phone: [phone])[address]10-08-2025 16:44-0400 Body sgihps667.1 cmLisa Aichholz SENIOR WATER RESOURCES ENGINEER-C Work Phone: [phone])[address]10-08-2025 16:44-0400 Body mass index (BMI) [Ratio]29.3 kg/m2Lisa Aichholz SENIOR WATER RESOURCES ENGINEER-C Work Phone: [phone])[address]10-08-2025 16:44-0400 Body hisdingshyi92 [degF]Pascale Aichholz SENIOR WATER RESOURCES ENGINEER-C Work Phone: 1(017)[address]10-08-2025 16:44-0400 Body qnmyln47.08 kgLisa Aichholz SENIOR WATER RESOURCES ENGINEER-C Work Phone: 1([phone])[address]10-08-2025 16:44-0400 Diastolic blood pazhtxwl18 mm[Hg]Pascale Aichholz SENIOR WATER RESOURCES ENGINEER-C Work Phone: 1(402)[address]10-08-2025 16:44-0400 Heart rate65 /minLisa Aichholz SENIOR WATER RESOURCES ENGINEER-C Work Phone: 1(954)[address]10-08-2025 16:44-0400 Respiratory rate16 /minLisa Aichholz SENIOR WATER RESOURCES ENGINEER-C Work Phone: 1(833)959-[address] [place], [place] [address]10-08-2025 16:44-0400 SaO2% (BldA) [Mass fraction]99 %Pascale Aichholz SENIOR WATER RESOURCES ENGINEER-C Work Phone: 1(695)478-[address] [place], [place] [address]6210-08-2025 16:44-0400 Systolic blood mm[Hg]Pascale Aichholz SENIOR WATER RESOURCES ENGINEER-C Work Phone: [facility]09-10-2025 14:57-0400 Body censhi463.4 cmJovon Asif MD Work Phone: [facility]09-10-2025 14:57-0400Body mass index (BMI) [Ratio]28.94 kg/z2MrtjwvJovon Asif MD Work Phone: [facility]09-10-2025 14:57-0400Body jymcye65.11 kgJovon Asif MD Work Phone: [facility]09-10-2025 14:57-0400Diastolic blood cluqcwtt75 mm[Hg]Jovon Asif MD Work Phone: [facility]09-10-2025 14:57-0400Heart rate 83 /minJovon Asif MD Work Phone: [facility]09-10-2025 14:57-0400Systolic blood uhaeqrwr33 mm[Hg]Jovon Asif MD Work Phone: [facility]09-02-2025 08:37-0400Body hsejaa552.1 Corinna Arana Work Phone: [phone]09-02-2025 08:37-0400 Body mass index (BMI) [Ratio]29.2 kg/m2Pascale Arana Work Phone: [facility]09-02-2025 08:37-0400 Body .6 kgPascale Arana Work Phone: [facility]08-05-2025 11:31-0400 Body mass index (BMI) [Ratio]28.76 kg/m2Pascale Arana SENIOR WATER RESOURCES ENGINEER Work Phone: [facility] HospitalWmvgpbanps03-91-6393 11:31-0400Body temperature 97.81 [degF]Pascale Aichholz SENIOR WATER RESOURCES ENGINEER Work Phone: [facility] HospitalPfrmmiqafp12-07-2064 11:31-0400Body jyefms37.38 kgPascale Arana SENIOR WATER RESOURCES ENGINEER Work Phone: [facility] HospitalNsrmzeenpx55-71-6993 11:31-0400Diastolic blood mm[Hg]Pascale Arana SENIOR WATER RESOURCES ENGINEER Work Phone: [facility] HospitalIobkzsdddp24-94-2090 11:31-0400Heart rate99 /min Pascale Arana SENIOR WATER RESOURCES ENGINEER Work Phone: [facility] HospitalYyqgvkzssm53-36-1006 11:31-1496XeJ9% (BldA) [Mass fraction]97 %Pascale Arana SENIOR WATER RESOURCES ENGINEER Work Phone: [facility] HospitalUetwhihftn35-19-2383 11:31-0400Systolic blood uoazaphu116 mm[Hg]Pascale Arana SENIOR WATER RESOURCES ENGINEER Work Phone: [facility] HospitalXeexwjjlfe37-22-0516 15:01-0400Body mass index (BMI) [Ratio]28.79 kg/q2QyanrafcEunice Dias PMHNP-BC Work Phone: [facility] HospitalLyqrvxjfgr34-73-6429 15:01-0400Body pnfeyk39.47 kgEunice Dias PMHNP-BC Work Phone: [facility] HospitalOveuvplrna78-22-4063 15:01-0400Diastolic blood wcyidnkr83 mm[Hg]Eunice Dias PMHNP-BC Work Phone: [facility] HospitalWyqlkqxbdk38-04-1573 15:01-0400Heart rate88 /min Eunice Dias PMHNP-BC Work Phone: [facility] HospitalFitrjagzmn61-28-4545 15:01-0400Systolic blood ilzyovzi469 mm[Hg]Eunice Dias PMHNP-BC Work Phone: [facility] HospitalWlmwwvivdv28-16-2842 14:23-0400Body .4 Ning Muniz DO Work Phone: [facility]07-17-2025 14:23-0400Body mass index (BMI) [Ratio]28.51 kg/t4JatyeShelia Muniz DO Work Phone: [facility]07-17-2025 14:23-0400Body rfomwf67.93 kgShelia Muniz DO Work Phone: [facility]07-17-2025 14:23-0400Diastolic blood exteplzv33 mm[Hg]Shelia Muniz DO Work Phone: [facility]07-17-2025 14:23-0400Systolic blood xxeohzep039 mm[Hg]Shelia Muniz DO Work Phone: [facility]07-02-2025 09:04-0400Body mass index (BMI) [Ratio]29.62 kg/h7IrmlechzEunice Dias PMHNP-BC Work Phone: [facility] HospitalJzooucyndw13-88-8424 09:04-0400Body .74 kgEunice Dias PMHNP-BC Work Phone: [facility] HospitalVvuzznsgqt75-13-7835 09:04-0400Diastolic blood jjgpntum91 mm[Hg]Eunice Dias PMHNP-BC Work Phone: [facility] HospitalEnkubbynbw09-87-3972 09:04-0400Heart rate78 /min Eunice Dias PMHNP-BC Work Phone: [facility] HospitalBucwgbiqnh39-63-4176 09:04-0400Systolic blood dwpwajip107 mm[Hg]Eunice Dias PMHNP-BC Work Phone: [facility] HospitalWbgeblxgqf55-78-6032 16:32-0400Body mass index (BMI) [Ratio]29.99 kg/m2Pascale Arana SENIOR WATER RESOURCES ENGINEER Work Phone: [facility] HospitalNxnuszaiqc75-42-4584 16:32-0400Body temperature 98.01 [degF]Pascale Arana SENIOR WATER RESOURCES ENGINEER Work Phone: [facility] HospitalGevdfrnhmo32-01-7441 16:32-0400Body oeyqdw17.74 kgLisa Aichholz SENIOR WATER RESOURCES ENGINEER Work Phone: [facility] HospitalRrlczgdczq84-61-3781 16:32-0400Diastolic blood osajxxjf08 mm[Hg]Pascale Shalaholz SENIOR WATER RESOURCES ENGINEER Work Phone: [facility] HospitalOntvlcpgqn84-72-3597 16:32-0400Heart rate82 /min Pascale Derrickhholz SENIOR WATER RESOURCES ENGINEER Work Phone: [facility] HospitalLttrhwbewe49-95-5907 16:32-0400Respiratory rate18 /minLisa Aichholz SENIOR WATER RESOURCES ENGINEER Work Phone: [facility] HospitalLainevbgji55-57-5193 16:32-7508HwK5% (BldA) [Mass fraction]98 %Pascale Shalaholz SENIOR WATER RESOURCES ENGINEER Work Phone: [facility] HospitalStweaxqvaf92-90-9942 16:32-0400Systolic blood mm[Hg]Pascale Shalaholz SENIOR WATER RESOURCES ENGINEER Work Phone: [facility] HospitalPyagvlueyt20-51-2846 15:30-0400Body mass index (BMI) [Ratio]32.48 kg/m2Lisa Shalaholz SENIOR WATER RESOURCES ENGINEER Work Phone: [facility] HospitalHvtyxopmsb10-77-7156 15:30-0400Body temperature 98.2 [degF]Pascale Shalaholz SENIOR WATER RESOURCES ENGINEER Work Phone: [facility] HospitalXqooysdjzk48-48-5679 15:30-0400Body suumsy06.54 kgLisa Shalaholz SENIOR WATER RESOURCES ENGINEER Work Phone: [facility] HospitalGzxvsjstvb49-82-5576 15:30-0400Diastolic blood boxmyhml12 mm[Hg]Pascale Derrickhholz SENIOR WATER RESOURCES ENGINEER Work Phone: [facility] HospitalRbzhjvuomy77-65-2690 15:30-0400Heart rate80 /min Pascale Aichholz SENIOR WATER RESOURCES ENGINEER Work Phone: [facility] HospitalVgwysobspf96-05-4211 15:30-0400Respiratory rate18 /minLisa Aichholz SENIOR WATER RESOURCES ENGINEER Work Phone: [facility] HospitalFwqhzaybhd18-21-4761 15:30-8940TzU6% (BldA) [Mass fraction]95 %Pascale Sumit SENIOR WATER RESOURCES ENGINEER Work Phone: [facility] HospitalTwvbywydwn89-09-4448 15:30-0400Systolic blood tnqbpzuc082 mm[Hg]Pascale Javierz SENIOR WATER RESOURCES ENGINEER Work Phone: [facility] HospitalQmboycxwyl08-19-5355 17:34-0400Body mass index (BMI) [Ratio]32.58 kg/m2Lisa Javierz SENIOR WATER RESOURCES ENGINEER Work Phone: [facility] HospitalQebatnoluf56-13-9230 17:34-0400Body temperature 98.8 [degF]Pascale Javierz SENIOR WATER RESOURCES ENGINEER Work Phone: [facility] HospitalLdmaqxbtsa70-49-2207 17:34-0400Body dobkmz43.81 kgLisa Lastholz SENIOR WATER RESOURCES ENGINEER Work Phone: [facility] HospitalCdqltdwuem62-02-1690 17:34-0400Diastolic blood ewnichuz39 mm[Hg]Pascale Javierz SENIOR WATER RESOURCES ENGINEER Work Phone: [facility] HospitalFzmsxuryjb49-20-8551 17:34-0400Heart rate92 /min Pascale Javierz SENIOR WATER RESOURCES ENGINEER Work Phone: [facility] HospitalBcxqkzhsaj49-17-3063 17:34-0400Respiratory rate18 /minLisa Herreraz SENIOR WATER RESOURCES ENGINEER Work Phone: [facility] HospitalZlgobuxmjf18-09-0998 17:34-9612ZxA9% (BldA) [Mass fraction]97 %Pascale Javierz SENIOR WATER RESOURCES ENGINEER Work Phone: [facility] HospitalKazwdqltmd90-79-7839 17:34-0400Systolic blood woghiurk91 mm[Hg]Pascale Shalaholz SENIOR WATER RESOURCES ENGINEER Work Phone: [facility] HospitalTmtqexcnkc71-93-7882 16:51-0400Body xjbsoa401.1 Chenisa Derrickhholz SENIOR WATER RESOURCES ENGINEER Work Phone: [facility] HospitalZnrclfvsri70-52-1815 16:51-0400Body mass index (BMI) [Ratio]33.51 kg/m2Lisa Shalaholz SENIOR WATER RESOURCES ENGINEER Work Phone: [facility] HospitalAxgchxibbe77-08-5835 16:51-0400Body temperature 97.81 [degF]Pascale Arana SENIOR WATER RESOURCES ENGINEER Work Phone: [facility] HospitalHmprsiqqmu96-25-5838 16:51-0400Body tqzpua13.35 kgPascale Arana SENIOR WATER RESOURCES ENGINEER Work Phone: [facility] HospitalQdnrstgyof73-31-1888 16:51-0400Heart rate68 /min Pascale Arana SENIOR WATER RESOURCES ENGINEER Work Phone: [facility] HospitalIisxdlpypm64-36-6382 16:51-0400Respiratory rate18 /minPascale Arana SENIOR WATER RESOURCES ENGINEER Work Phone: [facility] HospitalEziwycvfms20-40-3611 16:51-5422WpT0% (BldA) [Mass fraction]97 %Pascale Arana SENIOR WATER RESOURCES ENGINEER Work Phone: [facility] HospitalGbvuvzjxby70-78-2150 16:10-0500Body ebnmzw921.1 cmBrmanasa Nolanpatrick SENIOR WATER RESOURCES ENGINEER Work Phone: [facility] HospitalQbxmiwlrwx16-48-8091 16:10-0500Body mass index (BMI) [Ratio]33.28 kg/n6Qkzptnvx Groves SENIOR WATER RESOURCES ENGINEER Work Phone: [facility] HospitalTxpxixfqjh69-35-7377 16:10-0500Body temperature 97.2 [degF]Angel Luis Groves SENIOR WATER RESOURCES ENGINEER Work Phone: [facility] HospitalWwkxtojchk21-40-0116 16:10-0500Body oqubra87.72 kgBrmanasa Groves SENIOR WATER RESOURCES ENGINEER Work Phone: [facility] HospitalDarvjtipkx06-46-0186 16:10-0500Diastolic blood otbtbdne90 mm[Hg]Angel Luis Groves SENIOR WATER RESOURCES ENGINEER Work Phone: [facility] HospitalBownxhhxez65-64-6666 16:10-0500Heart rate79 /min Angel Luis Groves SENIOR WATER RESOURCES ENGINEER Work Phone: [facility] HospitalFgwpyfeaok21-74-9814 16:10-0500Respiratory rate16 /minBrmanasa Mathurtrick SENIOR WATER RESOURCES ENGINEER Work Phone: [facility] HospitalWgjvvjfsuk85-98-9027 16:10-4823JfF1% (BldA) [Mass fraction]98 %Angel Luis Mathurtrick SENIOR WATER RESOURCES ENGINEER Work Phone: [facility] HospitalAgwopdallv14-55-6747 16:10-0500Systolic blood qxfkcyut708 mm[Hg]Angel Luis Mathurtrick SENIOR WATER RESOURCES ENGINEER Work Phone: [facility] HospitalDnkevgyvqj11-90-3535 16:04-0500Body mass index (BMI) [Ratio]33.32 kg/m2Pascale Lastdes SENIOR WATER RESOURCES ENGINEER Work Phone: [facility] HospitalIkjtcqzysx60-06-9981 16:04-0500Body temperature 98.1 [degF]Pascale Sumit SENIOR WATER RESOURCES ENGINEER Work Phone: [facility] HospitalLrwdoinbbv60-00-0643 16:04-0500Body .81 kgPascale Lastdes SENIOR WATER RESOURCES ENGINEER Work Phone: [facility] HospitalAhrktzviwa80-34-3269 16:04-0500Diastolic blood ssneslva24 mm[Hg]Pascale Sumit SENIOR WATER RESOURCES ENGINEER Work Phone: [facility] HospitalKysxsyzmch83-25-7816 16:04-0500Heart rate80 /min Pascale Sumit SENIOR WATER RESOURCES ENGINEER Work Phone: [facility] HospitalGtwlcoxfwu02-23-2121 16:04-0500Respiratory rate20 /minLisa Lastdes SENIOR WATER RESOURCES ENGINEER Work Phone: [facility] HospitalCoqxjyvywb99-42-0979 16:04-9755NzS4% (BldA) [Mass fraction]97 %Pascale Sumit SENIOR WATER RESOURCES ENGINEER Work Phone: [facility] HospitalOyqhabrefm52-75-2173 16:04-0500Systolic blood iapimryx92 mm[Hg]Pascale Sumit SENIOR WATER RESOURCES ENGINEER Work Phone: [facility] HospitalFoavcwotal86-06-6693 14:59-0500Body noqhwa451.1 cmBrittany Groves SENIOR WATER RESOURCES ENGINEER Work Phone: [facility] HospitalIxnoadhuyd06-43-5113 14:59-0500Body mass index (BMI) [Ratio]34.28 kg/d1Bopxmrid Groves SENIOR WATER RESOURCES ENGINEER Work Phone: [facility] HospitalJlifrtqext72-92-8742 14:59-0500Body temperature 96.21 [degF]Angel Luis Groves SENIOR WATER RESOURCES ENGINEER Work Phone: [facility] HospitalWxgqufuqlc63-72-7653 14:59-0500Body fhyfdr03.44 kgBrittany Groves SENIOR WATER RESOURCES ENGINEER Work Phone: [facility] HospitalQhfivqciqs36-71-3469 14:59-0500Diastolic blood urtnllzi18 mm[Hg]Angel Luis Groves SENIOR WATER RESOURCES ENGINEER Work Phone: [facility] HospitalSmditwndrn61-60-0644 14:59-0500Heart rate83 /min Angel Luis Groves SENIOR WATER RESOURCES ENGINEER Work Phone: [facility] HospitalKmaqrslimz87-32-7798 14:59-0500Respiratory rate22 /minBrmanasa Groves SENIOR WATER RESOURCES ENGINEER Work Phone: [facility] HospitalBwusxorhcy53-57-6582 14:59-1323GaA3% (BldA) [Mass fraction]98 %Angel Luis Groves SENIOR WATER RESOURCES ENGINEER Work Phone: [facility] HospitalDmjjuuqxnb40-81-9201 14:59-0500Systolic blood tlcgnenu160 mm[Hg]Angel Luis Groves SENIOR WATER RESOURCES ENGINEER Work Phone: [facility] HospitalHujbzwgzqe30-03-5407 15:56-0400Body .1 cmBrittmelani Groves SENIOR WATER RESOURCES ENGINEER Work Phone: [facility] HospitalHsuqqailcj30-18-3916 15:56-0400Body mass index (BMI) [Ratio]33.61 kg/d1Rsxxuxpg Groves SENIOR WATER RESOURCES ENGINEER Work Phone: [facility] HospitalNqpokwlswb06-11-2469 15:56-0400Body temperature 98.29 [degF]Angel Luis Groves SENIOR WATER RESOURCES ENGINEER Work Phone: [facility] HospitalUpalxyvazh04-94-9546 15:56-0400Body uslymh05.63 kgBrmanasa Nolanpatrick SENIOR WATER RESOURCES ENGINEER Work Phone: [facility] HospitalBchhdfedzy38-05-5445 15:56-0400Diastolic blood sxqyhunf06 mm[Hg]Angel Luis Brittonzpatrick SENIOR WATER RESOURCES ENGINEER Work Phone: [facility] HospitalImyegrxqpu25-81-4496 15:56-0400Heart rate67 /min Angel Luis Groves SENIOR WATER RESOURCES ENGINEER Work Phone: [facility] HealthcareComment on above:98% H741-30-2768 15:56-0400Systolic blood igtvzrxl418 mm[Hg]Angel Luis Groves SENIOR WATER RESOURCES ENGINEER Work Phone: [facility] HospitalUbteniokjw02-44-9733 15:06-0400Blood Pressure LocationRon Palomares 382-6262Hxjnzo-SoocrKindred Healthcare08-26-2024 15:06-0400Diastolic blood olkdcoxg47 mm[Hg]Ron Palomares [phone]-GyjcuKindred Healthcare08-26-2024 15:06-0400Heart rate85 /minBardhamad Jelani [phone]-SdiohKindred Healthcare08-26-2024 15:06-0400Respiratory rate16 /minMohamad Mouchli 216-1005Hxlomq-RhqdhKindred Healthcare08-26-2024 15:06-0400Systolic blood heyuvokj417 mm[Hg]Ron Palomares 270-3632Ickucq-KxgflKindred Healthcare08-20-2024 15:46-0400Body xojdxf468.1 cmBrmanasa Mathurtrick SENIOR WATER RESOURCES ENGINEER Work Phone: [facility] HospitalLmeigxwhmh72-27-9190 15:46-0400Body mass index (BMI) [Ratio]33.28 kg/l3Otvgadmp Groves SENIOR WATER RESOURCES ENGINEER Work Phone: [facility] HospitalTipraffmea10-16-7174 15:46-0400Body temperature 98.01 [degF]Angel Luis Nolanpatrick SENIOR WATER RESOURCES ENGINEER Work Phone: [facility] HospitalNetuehmaia25-03-7536 15:46-0400Body .72 kgAngel Luis Groves SENIOR WATER RESOURCES ENGINEER Work Phone: [facility]OO[facility] HospitalPqybrlwliw52-57-6110 15:46-0400Diastolic blood yluwssfs15 mm[Hg]Angel Luis Brittonzpatrick SENIOR WATER RESOURCES ENGINEER Work Phone: noOz[facility] HospitalGepnwcuscr94-18-6043 15:46-0400Heart rate71 /min Angel Luis Groves SENIOR WATER RESOURCES ENGINEER Work Phone: noms HealthcareComment on above:99% Y025-03-0780 15:46-0400Systolic blood zmrtgnub556 mm[Hg]Angel Luis Brittonzpatrick SENIOR WATER RESOURCES ENGINEER Work Phone: [facility] HospitalJlglqcicsn09-41-7734 16:03-0500Blood Pressure LocationMichael NILL [facility] Mjbzercm07-62-8831 16:03-0500Diastolic blood lqqyczes26 mm[Hg]Segun NILL [facility] Sdwcltsn14-12-0606 16:03-0500Heart rate 72 /minMichael NILL [facility] Anbcxqxd49-36-8288 16:03-0500 Respiratory rate16 /minMichael NILL [facility] Lolrqyip72-45-2453 16:03-0500Systolic blood cuhubiwq850 mm[Hg]Segun NILL [facility] Lyvakuyx01-81-5153 13:00-0500Body exlumk816.1 Phill Quintana Other [place] [employer] Other 02-07-2022 13:00-0500Body mass index (BMI) [Ratio] 30.95 kg/l9Axgav Mariano Other [employer] Other 02-07-2022 13:00-0500Body hxisvbpmqnt23 [degF]Kristin Mariano Other [employer] Other 02-07-2022 13:00-0500Body qareuh89.37 kgAmber Mariano Other [facility] [employer] Other 02-07-2022 13:00-0500Respiratory rate16 /minAmber Mariano Other [employer] Other 02-07-2022 13:00-5668HnE7% (BldA) [Mass fraction]98 % Kristin Mariano Other [employer] Other Encounters Encounter DateEncounter TypeCare ProviderFacilityStart: 05-05-2025 End: 16-24-4375mieqehqomaKxzv J Aichholz NP-C Work Phone: [facility] Work Phone: Start: 05-05-2025 End: 59-49-9877Eluavwl encounter Pablo Del Toro [facility] Work Phone: Start: 72-21-8852Ncg-patient / Non-visitPascale GREENC-[facility] Work Phone: Start: 05-05-2025 End: 19-67-0028uonohjsduwZgckpvs Matt Eden MDFacility:PM Fredrick Start: 05-02-2025 End: 98-09-4194Sxeqdurke encounterKendafaizan Gudino CMAProMedica Physicians [facility] - UrogynecologyStart: 04-30-2025 End: 65-94-0274nsvykfjerhSeexZuhair Arana NP-C Work Phone: [facility] Work Phone: Start: 04-30-2025 End: 15-24-3766Sqlajvy encounter procedurePascale Arana NP-C-[facility] Work Phone: Start: 04-23-2025 End: 02-95-0520Fmgbmni encounter procedureShun Arshad MD-[facility] Work Phone: Start: 04-23-2025 End: 95-15-7698ifreyjamwfJchs J Aichholz SENIOR WATER RESOURCES ENGINEER-C Work Phone: [facility] Work Phone: Start: 51-38-4676Zfi-patient / Non-visitChristian Olivier Dong MD-[facility] Work Phone: Start: 04-09-2025 End: 68-82-9048vvvkzlrwidLPPFJX MALICKINot AvailableStart: 04-09-2025 End: 19-94-6147Fvqiby flowsheetBayley Malicki LPCNOMS [facility] Start: 04-09-2025 End: 65-51-5488Azakjo flowsheetBayley Malicki LPCNOMS [facility] Start: 04-03-2025 End: 31-05-2895Ubnmqq outpatient visit 15 minutesEunice Dias PMHNP-BC Work Phone: [facility]OM[facility] Behavioral HealthComment on above:JESSIKA (generalized anxiety disorder) ; Severe episode of recurrent major depressive disorder, without psychotic features (HCC); PTSD (post-traumatic stress disorder) ; Insomnia, unspecified type; FibromyalgiaStart: 04-03-2025 End: 29-02-9748xjqzeszfbyVWKMTAVS BRITTONNot AvailableStart: 04-02-2025 End: 64-14-1984Rxfkym outpatient new 45 minutesNadine C Laya MD Work Phone: [facility]ca [facility] - UrogynComment on above:Cystocele with second degree uterine prolapse (Primary Dx); History of reconstructive repair of rectocele; Urge urinary incontinenceStart: 04-02-2025 End: 83-18-7663kijrsvpnviNEURNF C KASSISKettering Health [facility] Campus Ambulatory PPGStart: 03-25-2025 End: 96-62-0101frtwwpbjldYRCJWJ MALICKINot AvailableStart: 03-25-2025 End: 56-10-6342Acmdga flowsheetBayley Malicki LPCNOMS [facility] Start: 03-25-2025 End: 42-52-2654Itdogp flowsheetBayley Malicki LPCNOMS [facility] Start: 03-25-2025 End: 99-20-8134josthuwwxiFiox J Aichholz Work Phone: [facility] Work Phone: Start: 03-25-2025 End: 42-31-3968Ksxjfhb encounter Dexter Arshad MD-[facility] Work Phone: start: 03-10-2025 End: 74-10-0511ivticeeligOxceazd Vytautas Giedraitis MDFacility:[facility] Start: 03-06-2025 End: 55-07-1760rddepezoeoRKKSKX MALICKINot AvailableStart: 03-06-2025 End: 29-89-1087Tbirxw flowsheetBayley Malicki LPCNOMS [facility] Start: 03-06-2025 End: 32-96-6009Vrwckg flowsheetBayley Malicki LPCNOMS [facility] Start: 03-05-2025 End: 79-03-2920Fzeuurkbf Result EncounterLisa Sumit SENIOR WATER RESOURCES ENGINEER Work Phone: noms External Department UnsolicitedStart: 03-05-2025 End: 81-13-0389Shspmyqse Result EncounterLisa Sumit SENIOR WATER RESOURCES ENGINEER Work Phone: n[facility] External Department UnsolicitedStart: 02-26-2025 End: 81-90-5265Wdoilkshh Result EncounterGeneric External Data ProviderNONV External Department UnsolicitedStart: 02-26-2025 End: 96-11-7763Wipvnnznd Result EncounterGeneric External Data ProviderNONV External Department UnsolicitedStart: 02-26-2025 End: 42-33-5920KtklobHrhx Sumit CAMARGO Work Phone: noms [facility] FMComment on above:Gastroesophageal reflux disease, unspecified whether esophagitis present (Primary Dx)Start: 02-25-2025 End: 46-75-8958Kiopac outpatient visit 25 minutesPascale Sumit SENIOR WATER RESOURCES ENGINEER Work Phone: noms [facility] FMComment on above:Severe episode of recurrent major depressive disorder, without psychotic features (HCC) (Primary Dx); Cigarette nicotine dependence without complication; PTSD (post-traumatic stress disorder) ; Class 1 obesity due to excess calories without serious comorbidity with body mass index (BMI) of 32.0 to 32.9 in adult; Iron deficiency anemia secondary to inadequate dietary iron intake; Primary insomniaStart: 02-25-2025 End: 04-82-8650vajrqmppotBZZC AICHHOLZNot AvailableStart: 02-24-2025 End: 00-67-2143hvkopcnbcjBDMQPCBY BRITTONNot AvailableStart: 02-24-2025 End: 43-57-1879Qwoslz outpatient visit 15 minutesEunice Dias [facility]- Work Phone: [facility] HealthComment on above:JESSIKA (generalized anxiety disorder) ; Severe episode of recurrent major depressive disorder, without psychotic features (HCC); PTSD (post-traumatic stress disorder) ; Insomnia, unspecified type; Sleep apnea, unspecified typeStart: 02-24-2025 End: 28-72-5201Jgppgc Sarah Dias [facility]- Work Phone: [facility] HealthStart: 02-24-2025 End: 78-35-3927Pzijrk Sarah Dias [facility]- Work Phone: [facility] HealthStart: 02-24-2025 End: [id number] Birdie Asif MD Work Phone: [facility] Start: 02-20-2025 End: 45-53-4859AqweomKdnb Aichholz [employer] Work Phone: [facility] FMComment on above:Psychophysiological insomniaStart: 02-19-2025 End: 52-09-8510Aennbpwto Result EncounterGeneric External Data ProviderNOMS External Department UnsolicitedStart: 02-19-2025 End: 96-78-1451Mdvzqwjnx Result EncounterGeneric External Data ProviderNOMS External Department UnsolicitedStart: 02-11-2025 End: 99-53-3195WsztzdUdsw Aichholz [employer] ENG[employer]ER Work Phone: [facility] CWM FMComment on above:UTI (urinary tract infection), uncomplicated; Class 1 obesity due to excess calories without serious comorbidity in adult, unspecified BMI; BMI 32.0-32.9,adultStart: 02-06-2025 End: 85-69-0437Prpuxq outpatient new 30 minutesTan DO Work Phone: [facility]/GynecologyComment on above:Cystocele with second degree uterine prolapse (Primary Dx); History of reconstructive repair of rectocele; Urge urinary incontinence; Incomplete emptying of bladder; Atrophic vaginitisStart: 02-06-2025 End: 66-67-4426DbpsdpZrqs Aichholz SENIOR WATER RESOURCES ENGINEER Work Phone: noms CWM FMComment on above:URTI (acute upper respiratory infection); Non-recurrent acute suppurative otitis media of both ears without spontaneous rupture of tympanic membranesStart: 02-05-2025 End: 85-25-5728Oqkexlhxp Result EncounterGeneric External Data ProviderNOMS External Department UnsolicitedStart: 02-05-2025 End: 16-06-5473Hmzljrcsq Result EncounterGeneric External Data ProviderNOMS External Department UnsolicitedStart: 01-22-2025 End: 28-40-3576Itgrzp Sarah Dias HNP-BC Work Phone: noms CI BHStart: 01-22-2025 End: 94-44-2674Vkfwyl Sarah Dias HNP-BC Work Phone: noms CI BHStart: 01-22-2025 End: 83-02-6833xurjfldkhtXSZXAGHC BRITTONNot AvailableStart: 01-20-2025 End: 78-08-3955wtljjdilscZuldykx Vytautas Giedraitis MDFacility:[facility] Start: 01-14-2025 End: 02-29-9136Slrsvflxi Result EncounterLisa Derrickhholz SENIOR WATER RESOURCES ENGINEER Work Phone: noms External Department UnsolicitedStart: 01-14-2025 End: 70-76-1032Igxteaxll Result EncounterLisa Aichholz SENIOR WATER RESOURCES ENGINEER Work Phone: noms External Department UnsolicitedStart: 01-14-2025 End: 30-28-4965NfijkyTcdb Aichholz SENIOR WATER RESOURCES ENGINEER Work Phone: noms CWM FMComment on above:URTI (acute upper respiratory infection); Non-recurrent acute suppurative otitis media of both ears without spontaneous rupture of tympanic membranesStart: 01-07-2025 End: 33-66-2562Glfyoz OnlyLisa Derrickhholz SENIOR WATER RESOURCES ENGINEER Work Phone: noms CWM FMComment on above:B12 deficiency (Primary Dx); Iron deficiency anemia secondary to inadequate dietary iron intakeStart: 01-06-2025 End: 94-35-1773Uyaohr outpatient visit 25 minutesLisa Sumit SENIOR WATER RESOURCES ENGINEER Work Phone: noms CWM FMComment on above:Bipolar disorder with severe depression (HCC) (Primary Dx); Gastroesophageal reflux disease, unspecified whether esophagitis present; Class 1 obesity due to excess calories without serious comorbidity with body mass index (BMI) of 32.0 to 32.9 in adult; Cigarette nicotine dependence without complication; Stress; Fibromyalgia; Psychophysiological insomniaStart: 01-06-2025 End: 13-20-8282ibxkbpqfylVSJO AICHHOLZNot AvailableStart: 01-06-2025 End: 34-33-7945Nimsgr flowsheetLisa Mezahholz SENIOR WATER RESOURCES ENGINEER Work Phone: noms CWM FMStart: 01-06-2025 End: 35-03-4105Axtqby flowsheetLisa Aichholz SENIOR WATER RESOURCES ENGINEER Work Phone: noms CWM FMStart: 01-06-2025 End: 74-73-9093Cjmvgcsmi encounterLisa Derrickhholz SENIOR WATER RESOURCES ENGINEER Work Phone: noms CWM FMStart: 12-18-2024 End: 53-56-7218QrxlzyTboy Shalaholz SENIOR WATER RESOURCES ENGINEER Work Phone: noms CWM FMComment on above:URTI (acute upper respiratory infection); Non-recurrent acute suppurative otitis media of both ears without spontaneous rupture of tympanic membranesStart: 11-20-2024 End: 78-72-8469pyptjxnokcFMDO AICHHOLZNot AvailableStart: 11-20-2024 End: 17-13-3211Tmsdjng encounter procedureLisa Lastholz SENIOR WATER RESOURCES ENGINEER Work Phone: noms HealthcareStart: 11-20-2024 End: 17-17-7191Jduyqloe preventive med est patient 40-64yrsLisa Shalaholz SENIOR WATER RESOURCES ENGINEER Work Phone: noms CWM FMComment on above:Well woman exam with routine gynecological exam (Primary [...] adult, unspecified BMI; Hot flashes due to menopauseStart: 11-20-2024 End: 37-43-1849Fszedf flowsheetLisa Aichholz SENIOR WATER RESOURCES ENGINEER Work Phone: noms CWM FMStart: 11-20-2024 End: 96-87-5708Muhsbh flowsheetPascale Arana SENIOR WATER RESOURCES ENGINEER Work Phone: noms CWM FMStart: 11-20-2024 End: 79-85-8515Matqhjdot Result EncounterPascale Arana SENIOR WATER RESOURCES ENGINEER Work Phone: noms External Department UnsolicitedStart: 11-18-2024 End: 84-30-9535UvrrimSfxh Aichholz SENIOR WATER RESOURCES ENGINEER Work Phone: noms CWM FMComment on above:Overactive bladder due to prolapse of female genital organGastroesophageal reflux disease, unspecified whether esophagitis presentPsychophysiological insomniaFibromyalgiaEnvironmental and seasonal allergiesURTI (acute upper respiratory infection); Non-recurrent acute suppurative otitis media of both ears without spontaneous rupture of tympanic membranesBipolar disorder with severe depression (CMS/[facility]) Start: 10-23-2024 End: 32-81-9716Dxbyib outpatient visit 15 Twila Arana SENIOR WATER RESOURCES ENGINEER Work Phone: noms CWM FMComment on above:Iron deficiency anemia secondary to inadequate dietary iron intake (Primary Dx); Class 1 obesity due to excess calories without serious comorbidity in adult, unspecified BMI; Cigarette nicotine dependence without complication; B12 deficiency; BMI 32.0-32.9,adultStart: 10-23-2024 End: 83-18-9958Qbkiqylmq Result EncounterPascale Arana SENIOR WATER RESOURCES ENGINEER Work Phone: noms External Department UnsolicitedStart: 10-23-2024 End: 20-52-2080Rldsretgd Result EncounterPascale Herreraantwon SENIOR WATER RESOURCES ENGINEER Work Phone: noms External Department UnsolicitedStart: 10-23-2024 End: 95-86-5791Tpnwmut encounter Shaniqua De Anda MD Work Phone: noms HealthcareStart: 10-23-2024 End: 16-04-8551LucnuhAkiu Naderer MD Work Phone: noms CWM FMComment on above:URTI (acute upper respiratory infection); Non-recurrent acute suppurative otitis media of both ears without spontaneous rupture of tympanic membranesStart: 10-03-2024 End: 47-20-0080Tbizgrklb Result EncounterPascale Lastdes SENIOR WATER RESOURCES ENGINEER Work Phone: noms External Department UnsolicitedStart: 10-03-2024 End: 00-80-6881Znptfketi Result EncounterLisa Lastdes SENIOR WATER RESOURCES ENGINEER Work Phone: noms External Department UnsolicitedStart: 10-02-2024 End: 14-19-3839Fagflc outpatient visit 25 minutesGalina Sumit SENIOR WATER RESOURCES ENGINEER Work Phone: noms CWM FMComment on above:Gastroesophageal reflux disease, unspecified whether esophagitis present (Primary Dx); [...] to prolapse of female genital organ; BMI 34.0-34.9,adultStart: 10-02-2024 End: 52-01-5491uhhsvsadopXEWF AICHHOLZNot AvailableStart: 10-02-2024 End: 32-33-6765Dzziby flowsheetLisa Mezahholz SENIOR WATER RESOURCES ENGINEER Work Phone: noms CWM FMStart: 10-02-2024 End: 44-53-0861Yjeuum flowsheetLisa Derrickhholz SENIOR WATER RESOURCES ENGINEER Work Phone: noms CWM FMStart: 09-09-2024 End: 66-04-8699Hskpnnfct Result EncounterGeneric External Data ProviderNOMS External Department UnsolicitedStart: 09-09-2024 End: 82-72-7167Lwwwacwgz Result EncounterGeneric External Data ProviderNOMS External Department UnsolicitedStart: 09-06-2024 End: 63-74-5702JxedriTsdj Aichholz SENIOR WATER RESOURCES ENGINEER Work Phone: NOOU CWM FMComment on above:Environmental and seasonal allergiesStart: 09-05-2024 End: 88-44-3006Suohrnuoz Result EncounterGeneric External Data ProviderNOMS External Department UnsolicitedStart: 09-05-2024 End: 50-79-8595Gqeuowafr Result EncounterGeneric External Data ProviderNOMS External Department UnsolicitedStart: 09-04-2024 End: 37-28-9545Wfrayp outpatient visit 10 minutesBrmanasa Groves SENIOR WATER RESOURCES ENGINEER Work Phone: NOUJ CWM FMComment on above:BMI 33.0-33.9,adult (Primary Dx); Bipolar disorder with severe depression (CMS/HCC); Fibromyalgia; Gastro-esophageal reflux disease without esophagitis; Esophageal reflux; BMI 34.0-34.9,adult; Psychophysiological insomnia; Overactive bladder due to prolapse of female genital organStart: 09-04-2024 End: 66-18-9620qjvrllixjzSSJHZSDP FITZPATRICKNot AvailableStart: 09-04-2024 End: 16-27-7862Qetcia flowsheetBrittany Groves SENIOR WATER RESOURCES ENGINEER Work Phone: NODX CWM FMStart: 09-04-2024 End: 77-77-5869Njmane flowsheetBrittany Groves SENIOR WATER RESOURCES ENGINEER Work Phone: NOPY CWM FMStart: 08-28-2024 End: 64-07-5444YzhnnnXngocdrd Gorves SENIOR WATER RESOURCES ENGINEER Work Phone: NOMS CWM FMComment on above:FibromyalgiaStart: 08-14-2024 End: 40-04-3075VrojllHxwvaafo Groves SENIOR WATER RESOURCES ENGINEER Work Phone: NOPH CWM FMComment on above:FibromyalgiaStart: 08-12-2024 End: 02-82-6116Pczevy outpatient visit 25 minutesLisa Sumit SENIOR WATER RESOURCES ENGINEER Work Phone: NOPF CWM FMComment on above:Acute non-recurrent maxillary sinusitis (Primary Dx); Cigarette nicotine dependence without complication; Class 1 obesity due to excess calories without serious comorbidity in adult, unspecified BMI; Environmental and seasonal allergies; Cutaneous abscess of abdominal wallStart: 08-12-2024 End: 30-20-0635fygxebtyelDJCY AICHHOLZNot AvailableStart: 08-12-2024 End: 62-64-6416Eodvcd flowsheetLisa Shalaholz SENIOR WATER RESOURCES ENGINEER Work Phone: noms CWM FMStart: 08-12-2024 End: 06-35-7987Fjepvb flowsheetLisa Shalaholz SENIOR WATER RESOURCES ENGINEER Work Phone: noms CWM FMStart: 08-12-2024 End: 98-46-1340Jleibemr Result EncounterLisa Shalaholz SENIOR WATER RESOURCES ENGINEER Work Phone: noms External Department UnsolicitedStart: 08-05-2024 End: 86-52-2626Pdjuns OnlyAngel Luis Blackburnk SENIOR WATER RESOURCES ENGINEER Work Phone: noms CWM FMComment on above:B12 deficiency (Primary Dx); Iron deficiency anemia, unspecified iron deficiency anemia typeStart: 08-01-2024 End: 12-18-7870Szoafjbab Result EncounterBrmanasa Mathurtrick SENIOR WATER RESOURCES ENGINEER Work Phone: noms External Department UnsolicitedStart: 08-01-2024 End: 29-51-5778Unhhrhnvl Result EncounterBrittmelani MathurGroves SENIOR WATER RESOURCES ENGINEER Work Phone: noms External Department UnsolicitedStart: 07-31-2024 End: 54-74-2709Wlwpxe outpatient visit 15 minutesBrmanasa Mathurtrick SENIOR WATER RESOURCES ENGINEER Work Phone: noms CWM FMComment on above:Iron deficiency anemia secondary to inadequate dietary iron intake (Primary Dx); Fibromyalgia; Psychophysiological insomnia; BMI 34.0-34.9,adultStart: 07-31-2024 End: 21-29-2105leftjhmtqoWOQWBBQS FITALEXIATRICKNot AvailableStart: 07-31-2024 End: 41-99-7175Gwqixp flowsheetBrittany Groves SENIOR WATER RESOURCES ENGINEER Work Phone: NOMS CWM FMStart: 07-31-2024 End: 35-69-6770Gynnuk flowsheetBrittany Groves SENIOR WATER RESOURCES ENGINEER Work Phone: NOMS CWM FMStart: 07-25-2024 End: 42-96-5868PepifwUgrvxjuv Groves SENIOR WATER RESOURCES ENGINEER Work Phone: NOMS CWM FMComment on above:Psychophysiological insomniaStart: 06-25-2024 End: 37-22-9118HfdjhwMbbqohkv Groves SENIOR WATER RESOURCES ENGINEER Work Phone: NOMS CWM FMComment on above:Psychophysiological insomniaStart: 06-11-2024 End: 99-25-8831Gxbuem OnlyBrittany Groves SENIOR WATER RESOURCES ENGINEER Work Phone: NOMS CWM FMComment on above:Fibromyalgia (Primary Dx) Start: 06-03-2024 End: 16-61-1616GehdinSlldijrx Groves SENIOR WATER RESOURCES ENGINEER Work Phone: NOMS CWM FMComment on above:FibromyalgiaStart: 05-27-2024 End: 46-38-3808Qsxesd OnlyBrittany Groves SENIOR WATER RESOURCES ENGINEER Work Phone: NOMS CWM FMComment on above:Psychophysiological insomnia (Primary Dx)Start: 04-18-2024 End: 41-26-8702bfnbngswosRD Tyson Normanjaye Work Phone: [facility] Work Phone: Start: 04-18-2024 End: 80-49-9408Rdjtgvw encounter procedureMD Tyson Marquezvincenzo Work Phone: [facility] [address] Work Phone: Start: 04-10-2024 End: 78-25-4979Wuplox outpatient visit 15 minutesBrittany Groves SENIOR WATER RESOURCES ENGINEER Work Phone: NOMS CWM FMComment on above:Psychophysiological insomnia (Primary Dx); Fibromyalgia; Constipation, unspecified constipation typeStart: 04-10-2024 End: 22-41-0419Vceogq flowsheetBrittany Groves SENIOR WATER RESOURCES ENGINEER Work Phone: NOMS CWM FMStart: 04-10-2024 End: 08-13-7904Fwntro flowsheetBrittany Groves SENIOR WATER RESOURCES ENGINEER Work Phone: NOMS CWM FMStart: 03-18-2024 End: 00-67-5603evlvqrwgwuBhjojwo A. MouchliFacility:[facility] DHStart: 03-18-2024 End: 63-15-7789Yxwneso encounter Kourtney Palomares 997-2217Zagzue-YghorThe [facility] Start: 03-13-2024 End: 42-86-3911GabtbtGrfwbcbh Groves SENIOR WATER RESOURCES ENGINEER Work Phone: NOMS CWM FMComment on above:Fibromyalgia (Primary Dx) Start: 03-12-2024 End: 67-08-0429Zrflyo outpatient visit 15 minutesBrittany Groves SENIOR WATER RESOURCES ENGINEER Work Phone: NODH CWM FMComment on above:Constipation, unspecified constipation type (Primary Dx); FibromyalgiaStart: 03-12-2024 End: 48-63-8516Igzwel flowsheetBrittany Groves SENIOR WATER RESOURCES ENGINEER Work Phone: NOMS CWM FMStart: 03-12-2024 End: 70-08-4069Sjkpiq flowsheetBrittany Groves SENIOR WATER RESOURCES ENGINEER Work Phone: NOMS CWM FMStart: 32-95-1376hsfxdehjyyUyzwqrd Mouchli Facility:[facility] DHStart: 67-60-4047Pkh-patient / Non-visitMD Tyson Collazo Work Phone: [facility] Work Phone: Start: 81-78-2899UchpbmYtuqio Fawwad MD Work Phone: NOEK CW FMComment on above:Bipolar disorder with severe depression (CMS/HCC)Start: 07-19-2023 End: 48-34-5925odbkurezwnZnoczeo R NILLFacility:CD:[id number]: 06-07-2023 End: 48-29-3050pnyiagftzfXdrnaun R NILLFacility:[facility]Start: 06-07-2023 End: 34-87-0585Rfifteu encounter procedureMichael R NILL General Surgery Nill/[facility] Start: 08-92-5119iuoqmhaevtVthfzlr MouchliFacility:[facility] Street Hospitaltart: 42-57-7447bfddmaikthPszgkku MouchliFacility: Sherrytart: 04-07-2023 End: 96-27-9582srserbqmaxHZBRSVVVMemorial Health System [facility] Start: 29-39-9719gzflmpiwkmSUGKESRTMemorial Health System [facility] Start: 05-31-2022 End: 58-46-9353dxrvdfthwjZI TAMIKO Dickens WESTFacility:J4Dbsvv: 05-10-2022 End: 92-85-2069snqyxtagvkRX ELLIOT JOSEFacility:H0Zzzco: 04-19-2022 End: 86-59-2506mdxlcgplisUKLFYXDZ CULLENFacility:Z2Mglde: 03-29-2022 End: 14-27-9647seoxzwxuhiSDPHZALW CULLENFacility:A3Dqkln: 03-10-2022 End: 39-25-7132emrbxrqhbkBDOOY Letitia [facility] SATELLITEFacility:Q3Hpqwd: 31-09-2819Pslcjzjeh for preprocedural cardiovascular examinationPETER D [facility] Centertart: 26-87-2291Vvcppmlpk for preprocedural laboratory examinationPETER D [facility] Centertart: 03-03-2022 End: 85-61-1895lzeddmhcpqRVQQO D [facility] SATELLITEFacility:P5Uptke: 03-03-2022 End: 06-46-9989Mtfxvfgrz for preprocedural laboratory examinationPETER D [facility] SATELLITEFacility:Z5Jdfjx: 02-22-2022 End: 89-51-8686bglzsbgfojFJCIS D [facility]PITALANDERFacility:C5Jecyt: 02-09-2022 End: 05-27-4266hozegfykpcINEYI D [facility]OSPITALANDERFacility:R9Vcwrh: 08-30-2021 End: 58-55-0712ctdqnppwajXrdyu Mariano Other [facility] [employer] Other Start: 38-48-6363Ojuiwg outpatient visit 15 minutes Kristin BrockG [facility] ClydeStart: 06-07-2021 End: 18-80-7945hvsscrvjntBA ROBERTO HOUSEFacility:Z2Lzjwo: 11-14-2018 End: 47-88-3201Rzfskgc encounter procedureDEFAULT PHYSICIANFacility:[facility] Procedures DateProcedureProcedure DetailPerforming ClinicianStart: 04-09-2025 End: 74-72-3322Giritmvedmfxz w/patient 60 minutesGAD (generalized anxiety disorder)Rohan Waters LPCComment on above:JESSIKA (generalized anxiety disorder) ; Severe episode of recurrent major depressive disorder, without psychotic features (HCC); PTSD (post-traumatic stress disorder)Start: 03-25-2025 End: 43-64-0733Nnzthgwrloxwx w/patient 60 minutesGAD (generalized anxiety disorder)Rohan Waters LPCComment on above:JESSIKA (generalized anxiety disorder) ; Severe episode of recurrent major depressive disorder, without psychotic features (HCC); PTSD (post-traumatic stress disorder)Start: 03-06-2025 End: 90-25-3159Ilzvufkadjq diagnostic evaluationGAD (generalized anxiety disorder)Rohan Waters LPCComment on above:JESSIKA (generalized anxiety disorder) ; Severe episode of recurrent major depressive disorder, without psychotic features (HCC); PTSD (post-traumatic stress disorder)Start: 84-46-2093QDQ CBC WITH AUTO DIFFPascale Arana SENIOR WATER RESOURCES ENGINEER Work Phone: Start: 34-81-6908QVVLKTOQY BLOOD PRESSUREGeneric External Data ProviderStart: 23-92-3047BJ FOOT LT MIN 3VGeneric External Data ProviderStart: 70-42-4221PG LUMBAR SPINE WO CONGeneric External Data Provider Start: 58-55-8437Iyw spinal canal cervical w/o contrast matrlGeneric External Data ProviderStart: 01-22-2025 End: 29-32-1867Cgmfbijhppt diagnostic eval w/medical servicesGAD (generalized anxiety disorder)Eunice Dias [facility] Work Phone: comment on above:JESSIKA (generalized anxiety disorder) ; Severe episode of recurrent major depressive disorder, without psychotic features (HCC); PTSD (post-traumatic stress disorder) ; Insomnia, unspecified type; Sleep apnea, unspecified type; Encounter for drug screeningStart: 06-28-5300GAB CBC WITH AUTO DIFFLisa Sumit SENIOR WATER RESOURCES ENGINEER Work Phone: Start: 87-20-7465SBL,APTIMA HPV,AGE GDLNLisa Sumit SENIOR WATER RESOURCES ENGINEER Work Phone: Start: 06-52-7541Lxeqvfjruas observation [Identifier] in Cervix by Cyto stainLisa Arana SENIOR WATER RESOURCES ENGINEER Work Phone: Start: 56-27-2549OF TOMOSYNTHESIS SCREENING BILisa Sumit SENIOR WATER RESOURCES ENGINEER Work Phone: Start: 35-23-2754IxthuydcfxxXnah Sumit SENIOR WATER RESOURCES ENGINEER Work Phone: Start: 81-47-2314DMZ CBC WITH AUTO DIFFLisa Derrickhholz SENIOR WATER RESOURCES ENGINEER Work Phone: Start: 36-88-9831DW FOOT LT WO CONGeneric External Data ProviderStart: 88-27-0533AG FOOT LT MIN 3VGeneric External Data Provider Start: 64-67-7866IUVLDWS WOUND/ULCER (HTRX)Pascale Arana SENIOR WATER RESOURCES ENGINEER Work Phone: Start: 24-79-8560IRW CBC WITH AUTO DIFFBrittany Groves SENIOR WATER RESOURCES ENGINEER Work Phone: Start: 92-34-8534GndkginpztpKzbrlk Fawwad MD Work Phone: Start: 54-07-5305EyutahozzsopwiwhaoxusmyaohJocuhfr NILL Start: 79-60-5981Skulln of stomachMichael NILL Start: 46-30-4789Hxhjdxcnzdhwy cystoscopyMichael NILL Start: 64-07-4621Qfkjdhdutlnra cystoscopyMichael NILL CholecystectomyMichael NILL H/O: surgeryHistory of reconstructive repair of rectoceleTanya L Muniz DO Work Phone: H/O: surgeryHistory of reconstructive repair of rectoceleJovon Asif MD Work Phone: H/O: surgeryHistory of reconstructive repair of rectoceleKendal Shahab CMALigation of fallopian tubeMichael NILL Repair of cystoceleMichael NILL Plan of Treatment DateCare ActivityDetailAuthorStart: 79-63-6518Haxdawidr for malignant neoplasm of colonNOMS HealthcareStart: 24-03-1734Jppcxglbb for malignant neoplasm of cervixNOMS HealthcareStart: 40-29-0142Dhdgqey ScreeningTobacco Screening [facility] SystemStart: 18-55-7127Glraj BMI ScreeningAdult BMI Screening [facility] SystemStart: 42-73-6699Rnlblbi ScreeningTobacco Screening [facility] SystemStart: 79-38-4581Pkaty BMI ScreeningAdult BMI Screening [facility] SystemStart: 01-68-3895Hfwjxgn ScreeningTobacco Screening [facility] SystemStart: 87-42-2269Jzjszxcgw for malignant neoplasm of breastMammogramNOMS HealthcareStart: 05-28-2025 End: 83-48-7303Oupxcpz encounter hmqeqxfvr85/05/2025 2:30 PM EST Procedure visit [facility] [address] [place] [address] [facility] [place] [id number] Jovon Asif MD [address] [facility] [address] [place] [address] [facility] - UrogynStart: 05-21-2025 End: 22-00-9150Yezbpn Work05/21/2025 4:30 PM EDT Social Work [facility] [address] [facility] [address] [place] [phone] Rohan Waters [facility]ROHININV [facility] HealthStart: 05-19-2025 End: 45-16-8791Xxbmqfh encounter mepzrpxon22/27/2025 3:30 PM EDT Office Visit [facility] [address] [facility] [address] [place] [address] Angeli-Macarena Santos, MEDICAID SERVICE COORDINATOR-APPLICATION SUPPORT CONSULTANT [address] [facility] [address] [place], [place] [facility] HealthStart: 04-30-2025 End: 03-29-4784Bfframu encounter ejvfqclrp38/08/2025 4:30 PM EDT Office Visit [facility] [address] [place] [address] Pascale Arana NP [address] [place] [phone] NOMS CWM FMStart: 93-29-1467Warcnsh referralWilson [facility] Work Phone: Start: 04-24-2025 End: 09-53-1324Ujvcer Work04/24/2025 4:30 PM EDT Social Work [facility] [address] [place] [address] [place] [phone] Rohan Waters LPCNO [facility] HealthStart: 04-09-2025 End: 36-88-3410Yagvnq WorkNOMS [facility] HealthComment on above:Arrived Start: 04-03-2025 End: 41-95-3345Atvxpperlecv consultation with xgsyfsp9204/03/2025 9:00 AM EDT Telemedicine [facility] [address] [place] [address] [place] [address] Eunice Dias, PMHNP-BC [address] [place] [address] [place] [address] [facility] HealthStart: 04-02-2025 End: 76-81-4286Jlytukz encounter zmvgqhyqd38/10/2025 3:00 PM EDT Office Visit [facility] [address] [facility] [address] [place] [phone] Jovon Asif MD [address] [place] [address] [place] [address] [facility]rogynStart: 03-25-2025 End: 30-63-2877Cciyyx WorkNOWW [facility]ahyde Behavioral HealthComment on above:Arrived Start: 49-84-9343Aqmylqgkx vaccinationNONV HealthcareStart: 03-06-2025 End: 91-10-1386Jifjld WorkNOMS CI BHComment on above:ArrivedStart: 02-25-2025 End: 69-12-5124ZUN W Auto Differential panel - BloodCBC and differential Lab Routine Iron deficiency anemia secondary to inadequate dietary iron intake Expected: 02/25/2025 (Approximate), Expires: 02/25/2026[facility] Healthcare Work Phone: Comment on above:Expected: 02/25/2025 (Approximate), Expires: 02/25/2026Start: 02-25-2025 End: 60-34-0926Tyhd and Iron binding capacity panel - Serum or PlasmaIron level Lab Routine Iron deficiency anemia secondary to inadequate dietary iron intake Expected:02/25/2025 (Approximate), Expires: 02/25/2026NOMS HealthcareComment on above:Expected: 02/25/2025 (Approximate), Expires: 02/25/2026Start: 02-25-2025 End: 99-00-6381Hfctcjo encounter ddaclewrj99/05/2025 11:30 AM EDT [facility] [address] [place] [address] Pascale Arana, SENIOR WATER RESOURCES ENGINEER [address] [place] [address] [facility] FMStart: 02-24-2025 End: 12-10-3157Cturckq encounter procedureNOMS CI BHStart: 02-05-2025 End: 70-53-9020Lmabvpg encounter zxbzixfmd66/16/2025 3:20 PM EDT Office [facility] [address] [place] [address] Pascale Arana, SENIOR WATER RESOURCES ENGINEER [address] [place] [phone] [facility] FMStart: 01-22-2025 End: 00-48-8803Xlfyshk encounter procedureNOMS CI BHComment on above:Bipolar disorder with severe depression (HCC)Start: 01-07-2025 End: 85-05-8141QKD W Auto Differential panel - BloodCBC and differential Lab Routine Iron deficiency anemia secondary to inadequate dietary iron intake Expected: 01/07/2025 (Approximate), Expires: 01/07/2026[facility] Work Phone: Comment on above:Expected: 01/07/2025 (Approximate), Expires: 01/07/2026Start: 01-07-2025 End: 76-70-3636Ptidynxba (Vitamin B12) [Mass/volume] in Serum or PlasmaVitamin B12 Lab Routine B12 deficiency Iron deficiency anemia secondary to inadequate dietary iron intake Expected: 01/07/2025 (Approximate), Expires: 01/07/2026[facility] HealthcareComment on above:Expected: 01/07/2025 (Approximate), Expires: 01/07/2026Start: 01-07-2025 End: 39-53-7476Cnqdmlvh [Mass/volume] in Serum or PlasmaFerritin Lab Routine Iron deficiency anemia secondary to inadequate dietary iron intake Expected: (Approximate), Expires: 01/07/2026[facility] HealthcareComment on above: Expected: 01/07/2025 (Approximate), Expires: 01/07/2026Start: 01-07-2025 End: 25-70-9560Xbjn + transferrin + TIBCIron + transferrin + TIBC Lab Routine Iron deficiency anemia secondary to inadequate dietary iron intake Expected: 01/07/2025 (Approximate), Expires: 01/07/2026[facility] HealthcareComment on above: Expected: 01/07/2025 (Approximate), Expires: 01/07/2026Start: 01-06-2025 End: 93-60-1490Zvwhbiv encounter procedureNOMS [facility] FMComment on above: Gastroesophageal reflux disease, unspecified whether esophagitis present (Primary Dx); Class 1 obesity due to excess calories without serious comorbidity with body mass index (BMI) of 32.0 to 32.9 in adult; Cigarette nicotine dependence without complicationStart: 11-20-2024 End: 10-52-4204Olyeggy encounter zcqyrofih80/30/2025 3:20 PM EDT Office Visit [facility] [address] [place] [address] Pascale Arana NP [address] [place] [address] [facility] ERMIAS FMStart: 11-20-2024 End: 06-95-2066DBMV PREP TIS PAP AND HR HPV DNATHIN PREP TIS PAP AND HR HPV DNA Pathology and Cytology Routine Well woman exam with routine gynecological exam Expected: 11/20/2024 (Approximate), Expires: 11/20/2025[facility] Work Phone: Comment on above:Expected: 11/20/2024 (Approximate), Expires: 11/20/2025Start: 10-23-2024 End: 65-31-2142Kkwrjug encounter ufpwinrca22/02/2025 5:30 PM EDT Procedure Visit [facility] M [address] [place] [address] Pascale Arana, SENIOR WATER RESOURCES ENGINEER [address] [place] [phone] N[facility]S CWLashaun FMStart: 06-80-0710Mffqmwwvr vaccinationInfluenza Vaccine (#1)[facility] HealthcareComment on above:Postponed from 03/24/2024 (Patient Refused)Start: 10-04-2024 End: 94-54-6410UON W Auto Differential panel - BloodCBC and differential Lab Routine B12 deficiency Iron deficiency anemia, unspecified iron deficiencyanemia type Expected: 10/04/2024 (Approximate), Expires: 08/06/2025[facility] Healthcare Work Phone: Comment on above:Expected: 10/04/2024 (Approximate), Expires: 08/06/2025Start: 10-04-2024 End: 06-85-8621Rghnbojup (Vitamin B12) [Mass/volume] in Serum or PlasmaVitamin B12 Lab Routine B12 deficiency Iron deficiency anemia, unspecified iron deficiency anemia type Expected: 10/04/2024 (Approximate), Expires: 08/06/2025 [facility] HealthcareComment on above:Expected: 10/04/2024 (Approximate), Expires: 08/06/2025Start: 10-04-2024 End: 90-37-8170Qeewerwl [Mass/volume] in Serum or PlasmaFerritin Lab Routine B12 deficiency Iron deficiency anemia, unspecified iron deficiency anemia type Expected: 10/04/2024 (Approximate), Expires: 08/06/2025[facility] HealthcareComment on above:Expected: 10/04/2024 (Approximate), Expires: 08/06/2025Start: 10-04-2024 End: 92-11-6129Jnxy + transferrin + TIBCIron + transferrin + TIBC Lab Routine B12 deficiency Iron deficiency anemia, unspecified iron deficiency anemia type Expected: 10/04/2024 (Approximate), Expires: 08/06/2025[facility] HealthcareComment on above:Expected: 10/04/2024 (Approximate), Expires: 08/06/2025Start: 10-02-2024 End: 38-29-9085Wicjiqz encounter procedureNONV CWM FMComment on above:Class 1 obesity due to excess calories without serious comorbidity in adult, unspecified BMI (Primary Dx); Iron deficiency anemia secondary to inadequate dietary iron intake; Cigarette nicotine dependence without complication; Encounter for screening mammogram for malignant neoplasm of breast; B12 deficiencyStart: 10-02-2024 End: 87-02-8771QGH W Auto Differential panel - BloodCBC and differential Lab Routine Iron deficiency anemia secondary to inadequate dietary iron tbztalW11 deficiency Expected: 10/02/2024 (Approximate), Expires: 10/02/2025[facility] HealthcareComment on above:Expected: 10/02/2024 (Approximate), Expires: 10/02/2025Start: 10-02-2024 End: 13-63-0858Qfbejcpnd (Vitamin B12) [Mass/volume] in Serum or PlasmaVitamin B12 Lab Routine B12 deficiency Expected: 10/02/2024 (Approximate), Expires: 10/02/2025[facility] HealthcareComment on above:Expected: 10/02/2024 (Approximate), Expires: 10/02/2025Start: 10-02-2024 End: 31-65-0330Ecipkqft [Mass/volume] in Serum or PlasmaFerritin Lab Routine Iron deficiency anemia secondary to inadequate dietary iron intake Expected: (Approximate), Expires: 10/02/2025[facility] HealthcareComment on above: Expected: 10/02/2024 (Approximate), Expires: 10/02/2025Start: 10-02-2024 End: 70-06-2981Uang + transferrin + TIBCIron + transferrin + TIBC Lab Routine Iron deficiency anemia secondary to inadequate dietary iron intake Expected: 10/02/2024 (Approximate), Expires: 10/02/2025[facility] HealthcareComment on above: Expected: 10/02/2024 (Approximate), Expires: 10/02/2025Start: 10-02-2024 End: 44-31-2492VF Breast - bilateral ScreeningBilateral screening mammogram Imaging Routine Encounter for screening mammogram for malignant neoplasm of breast Expected: 10/02/2024 (Approximate), Expires: 12/02/2025[facility] Work Phone: Comment on above:Expected: 10/02/2024 (Approximate), Expires: 12/02/2025Start: 09-04-2024 End: 61-62-3844Chvwkwk encounter [facility]ER[facility] [facility] [place] FMComment on above:Arrived Start: 08-12-2024 End: 62-89-6926Oznqhlq encounter yrtzwworo35/20/2025 4:00 PM EST Office Visit [facility] [address] [place] [address] Pascale Arana, MARY JO [address] [place] [address] [facility]ER[facility] [place] FMComment on above:ArrivedStart: 08-12-2024 End: 72-96-9947TGBIPTUFWZP WOUND (HTRX)SUPERFICIAL WOUND (HTRX) Lab Routine Cutaneous abscess of abdominal wall Expected: 08/12/2024 (Approximate), Expires: 08/12/2025[facility] Work Phone: Comment on above:Expected: 08/12/2024 (Approximate), Expires: 08/12/2025Start: 07-31-2024 End: 76-62-4394Wwjyxmd encounter procedureNOMER[facility] [place] [facility] [place] FMComment on above:Arrived Start: 07-31-2024 End: 21-11-7479Qxruipagj (Vitamin B12) [Mass/volume] in Serum or PlasmaVitamin B12 Lab Routine Iron deficiency anemia secondary to inadequate dietary iron intake Expected: 07/31/2024 (Approximate), Expires: 07/31/2025[facility] Healthcare Comment on above:Expected: 07/31/2024 (Approximate), Expires: 07/31/2025Start: 07-31-2024 End: 06-80-6267Stezaiti [Mass/volume] in Serum or PlasmaFerritin Lab Routine Iron deficiency anemia secondary to inadequate dietary iron intake Expected: (Approximate), Expires: 07/31/2025[facility] HealthcareComment on above: Expected: 07/31/2024 (Approximate), Expires: 07/31/2025Start: 07-31-2024 End: 48-83-0305Sdmw + transferrin + TIBCIron + transferrin + TIBC Lab Routine Iron deficiency anemia secondary to inadequate dietary iron intake Expected: 07/31/2024 (Approximate), Expires: 07/31/2025[facility] HealthcareComment on above: Expected: 07/31/2024 (Approximate), Expires: 07/31/2025Start: 07-10-2024 End: 00-17-0575Cazsowm encounter idejuhsbq29/18/2024 4:30 PM EST Office Visit [facility] [address] [place] [phone] Angel Luis Groves, SENIOR WATER RESOURCES ENGINEER [address] [place] [address] [facility] FMStart: 06-05-2024 End: 36-67-5378Gwvnofd encounter zvnsbilal28/13/2024 5:30 PM EST Office Visit [facility] [address] [place] [address] Angel Luis Groves, SENIOR WATER RESOURCES ENGINEER [address] [place] [address] [facility] FMStart: 04-10-2024 End: 34-22-6979Oeyfmra encounter procedureNOMERCY [facility] [place] [facility] [place] FMComment on above:Arrived Start: 38-91-9688Aojztdwoq vaccinationInfluenza Vaccine (#1)[facility] Healthcare Start: 03-12-2024 End: 96-58-2965Uxoltwm encounter ryusgfoxc42/20/2024 3:30 PM EDT Office Visit [facility] [address] [place] [phone] Angel Luis Groves, MARY JO [address] [place] [address] ArrivedNOMS CWM FMComment on above:ArrivedStart: 11-13-2023 End: 85-99-5699Gsfkkzr encounter uqmvsrexq07/22/2024 4:45 PM EDT Office Visit [facility] [address] [place] [phone] Shaikh Main MD [address] [place] [address] NOMScottie MONSON IMStart: 88-36-7413Etlmvyzrq vaccinationInfluenza Vaccine (#1)[facility] HealthcareStart: 45-31-9144Jytzoiclauhmar of varicella zoster vaccineZoster (Shingles) Vaccine (1 of 2)[facility]: 84-34-1236Nxqktepax for malignant neoplasm of breastMammogramNOMS Healthcare Start: 23-09-9304Ncdmgmwjm for malignant neoplasm of cervixNOMS HealthcareStart: 85-09-0673Dkvhbmrwi for malignant neoplasm of cervixPap SmearNOMS Healthcare Start: 33-06-7100DVfL,Tdap and Td Vaccines (1 - Tdap)DTaP,Tdap and Td Vaccines (1 - Tdap)[facility]Start: 95-82-7015Iraaq BMI Follow Up PlanAdult BMI Follow Up PlanGrant Hospital SystemStart: 45-97-2639Btltwqdiyw Screening Depression ScreeningGrant Hospital SystemStart: 01-80-9692Mnqnkzfat for malignant neoplasm of colonNOMS HealthcareStart: 45-50-2347Licbixuid for malignant neoplasm of lungLung Cancer Screening Shared Decision MakingGolden Valley Memorial HospitalStart: 49-01-6496Gziitvj CounselingTobacco CounselingLutheran HospitalCBC W Auto Differential panel - BloodCBC and differential Lab Routine Iron deficiency anemia secondary to inadequate dietary iron intakeOrdered: 07/31/2024[facility] [employer] Work Phone: Comment on above:Ordered: 07/31/2024omprehensive metabolic 2000 panel - Serum or PlasmaParma Community General HospitalDRUG TOX MONITORIGN 6 W/ CONF,URINEDRUG TOX MONITORIGN 6 W/ CONF,URINE Lab Routine Encounter for drug screening Ordered: 01/22/2025[facility] [employer] Work Phone: comment on above:Ordered: 01/22/2025Electromyography [facility] HospitalPatient referralWilson [facility] Work Phone: Sjogrens syndrome-A extractable nuclear Ab [Units/volume] in [facility] Hospitalj[facility] syndrome-B extractable nuclear Ab [Units/volume] in [facility] Immunizations Immunization DateImmunizationNotesCare ProviderFacilityNEGATED: Highlighted row has not occurred!39-54-9286hvybeutav virus vaccine, unspecified formulation Segun HOLLOWAY [facility] [place] Payers DatePayer CategoryPayerPolicy [id number] Health [id number] Managed Care - POS [id number] Care HMO (unspecified)[id number] 2.16.840.1.956095.3.57[id number] 2.16.840.1.824507.3.57[id number] 2..840.1.041984.3.579.2.94229-50-9371Nkglrmy5663498 2..840.1.486265.3.579.[id number] 2.16.840.1.989286.3.579.2.30676-63-8534Hmxoypf5534196 2.840.1.497583.3.579.2.04734-84-6799Potaumf7035149 2.840.1.837579.3.579.2.92006-59-2999Irupsaj5275054 2.840.1.877587.3.579.2.12820-37-2759Ablefrz8778909 2.840.1.425401.3.579.2.69203-86-0455Jfiymau6872401 2.840.1.944165.3.579.2.[id number] 2.840.1.076809.3.579.2.31222-81-7805Fkgommy97928456 2.840.1.643357.3.579.2.68827-48-7328Uutwovm18739524 2.840.1.717702.3.579.2.40652-03-1077Mlbnscr50274493 2.840.1.406203.3.579.2.48507-33-9406Isbvyuh06682925 2.840.1.035447.3.579.2.99875-46-6640Yuenifc054205363 2.840.1.827024.3.579.2.878112-76-6881Drcikuc040153399 2.840.1.133631.3.579.2.600364-98-6878Oyzljjd56090974 2.840.1.718668.3.579.2.541526-41-3783Wctjpjr49281012 2.840.1.800046.3.579.2.662063-53-5521Qorlaee47906886 2.840.1.330254.3.579.2.838556-59-7949Eoofutv96005357 2.0.1.967299.3.579.2.536313-17-4433Pobysvo53921401 2..1.034978.3.579.2.593601-25-4148Rovipyu67786585 2..1.325980.3.579.2.654649-44-9032Oiefcac10566056 2..1.945566.3.579.2.309540-74-5206Dhkvpam22838752 2..1.741462.3.579.2.680063-66-0055Lqlntwy6771445 2..1.480520.3.579.2.000284-53-0614Blwdcby2015889 2..1.327231.3.579.2.605203-75-7772Uvmmmlo4809006 2..1.851709.3.579.2.874746-64-7393Udejurw2883117 2..1.463926.3.579.2.224359-15-1209Hudasfu4472616 2..1.825337.3.579.2.391332-37-9654Pblthwp7924032 2.0.1.073368.3.579.2.569579-90-9366Srspxqw067658807 2.0.1.769435.3.579.2.49002-85-2576Qwgtltu446720500 2..840.1.145999.3.579.2.92052-96-2731Fhqdwce553004158 2.16.840.1.881162.3.579.2.65694-95-1982Kcbgwpw Health [id number] 2..840.1.724514.82VwseugkMfkiydt40459415 2.840.1.992319.3.579.2.531 Social History DateTypeDetailFacilityUnknown if ever smokedNost. luke's hospital PinMyPet Other Start: 09-03-2020 End: 98-20-6458Pmu [facility] Tro[facility]art: 06-07-2023 End: 53-86-9002Qtkgcbn smoking statusHeavy tobacco smoker (finding)[facility] BellevueTobacco smoking statusFormer smokeless tobacco user, quit more than 30 days agoGeneral Surgery BellevueStart: 07-04-2023 End: 13-06-9076Bvrrkix smoking status NHISSmokes tobacco dailyNOMS Healthcare Start: 74-41-4884Sxkaqbg of tobacco useCigarette SmokerNOMS HealthcareStart: 09-03-2020 End: 96-56-9676Amcxuftkhg smoked current (pack per day) - Qbntyeog1DWBU HealthcareStart: 07-04-2023 End: 12-44-7460Lanwafo use and exposureSmokeless tobacco non-userNOMS Healthcare Start: 08-14-2023 End: 63-30-0391Thiavjw intakeLifetime non-drinker (finding)[facility] HealthcareWithin the last year, have you been afraid of your partner or ex-partner?NoNOMS HealthcareAre you now , , , , never or living with a partner?MarriedNOMS HealthcareHow often to you have a drink containing alcohol?NeverNOMS HealthcareDo you feel stress - tense, restless, nervous, or anxious, or unable to sleep at night because yourmind is troubled all the time - these days [OSQ]To some extentNONV Healthcare(I/We) worried whether (my/our) food would run out before (I/we) got money to buy more.Never trueNOMS HealthcareStart: 29-40-2395Fkpihic CommentThinking about quittingNOMS HealthcareStart: 39-99-6810Zrfnrqj Commentcaffeine: 3-4 cups per dayNOMS HealthcareStart: 13-00-4280Ssa Assigned At BirthNot on fileNOMS HealthcareStart: 70-86-2985Lpg Assigned At [facility] HospitalFeProMedica Defiance Regional HospitalHistory of tobacco usePassive smokerNONV HealthcareStart: 01-22-2025 End: 54-44-9378Fripdinci beverage intakeEx-drinker (finding)[facility] Start: 75-97-8397OtcUhdgfr (finding)[facility] SystemStart: 02-24-2025 End: 97-32-2807Saqlaxqev beverage intakeCurrent drinker of alcohol (finding) [facility] Goals DatePatient GoalDesired Activity/StatePersonal health goal Functional Status ZsqnAjqumkehnpEdhpqgGjckzqdu84-81-9284Frgolyzpfrp anxiety disorder 7 item (JESSIKA-7)[facility] HospitalHpmvbeyuwi06-75-8928Lyvhtes Health Questionnaire 2 item (PHQ-2) [Reported][facility] HospitalEbpwmapyvi15-06-8885JCZ-7 quick depression assessment panel [Reported.PHQ][facility] HospitalTcgnnrlnuk77-73-5056Xwxyebnyyx StatusN/[facility] Digestive Yakmha03-48-0416Qtgrxtcynl StatusN/AGeneral Surgery [place] Clinical Notes 08-30-2021 to 05-02-2025 Note Date & YkzzUceaYkhrlwyv06-65-4049 Miscellaneous Notes* Telephone Encounter - Areli Gudino CMA - 05/02/2025 1:01 PM EDT Patient called to say she is on Tolterodine for her OAB but is having worse incontinence. She has UDS scheduled in May but her PCP wants to see if she can be put on something else as the currentmed is the highest dose. Please advise. * Telephone Encounter - Jovon Asif MD - 05/02/2025 1:01 PM EDT Myrbetriq 50 milligrams once daily, dispense 30 tablets, 5 refills. * Telephone Encounter - Areli Gudino CMA - 05/02/2025 1:01 PM EDT Called patient and sent in Myrbetriq to their preferred pharmacy. documented in this [facility]Luther[facility]10[facility] Telephone encounter Note* Telephone Encounter - Areli Gudino CMA - 05/02/2025 1:01 PM EDT Patient called to say she is on Tolterodine for her OAB but is having worse incontinence. She has UDS scheduled in May but her PCP wants to see if she can be put on something else as the currentmed is the highest dose. Please advise. [facility] Telephone encounter Note* Telephone Encounter - Jovon Asif MD - 05/02/2025 1:01 PM EDT Myrbetriq 50 milligrams once daily, dispense 30 tablets, 5 refills. [facility] GIVTED Uncplw16-45-8854 Telephone encounter Note* Telephone Encounter - Areli Gudino CMA - 05/02/2025 1:01 PM EDT Called patient and sent in Myrbetriq to their preferred pharmacy. [facility] GIVTED Mkjgos59-44-6020 History of Present illness Narrative* Eunice Dias, PMHNP-BC - 04/03/2025 9:00 AM EDT Images from the original note were not included. HPI: Talia Rutherford is a 54 y.o. female with a history of Fibromyalgia, gastric bypass (2019), sleep apnea (does not wear CPAP), MDD, JESSIKA, PTSD, and Insomnia. Patient is here today for follow-up via telehealth. Location of patient: Home; located in [place] Location of provider: Office; located in [place], [place] Patient seen via: [employer] [facility]; audio and video utilized Reason for [...] of feeling agitated or irritable. She states hersleep has improved but still has nights where [...] She is recently [facility]. She states [...] Groves NP as Nurse Practitioner (Family Medicine) Eunice Dias, PMHNP-BC as Nurse Practitioner (Behavioral Health) Rohan Waters LPC as Spray Stainer (Behavioral Health) PSYCHIATRIC REVIEW OF SYMPTOMS AND [...] be slowly increased on the dose due tobeing off of medication for several days. We discussed how to titrate up on medication. She is alsoaware that she will need to follow-up with other psychiatric security nurse in the future due to medication adjustment [...] get Ambien through team, she will need UDSprior to prescribing this. - Continue counseling for [...] care as described above. documented in this encounterGolden Valley Memorial HospitalQlbvjfqril96-60-2609 History of Present illness Narrative* Margot Marsh DO - 04/02/2025 3:00 PM EDT SUBJECTIVE Chief Complaint: cystocele HPI Ms. Talia Rutherford is a , 54 y.o. female who is referred by Shelia Muniz DO for cystocele. The patient reports history of rectocele repair in 2021 at [facility]. She notes a bulge on a daily [...] incontinence. She denies any recent UTI. No changein bowel habits recently. The patient has not tried pelvic floor therapy or pessary previously. Gynecology provider: Dr. Muniz. 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 She [...] mg total) by mouth in the morning., Disp:, Rfl: cyanocobalamin (vitamin B-12) 1000 MCG tablet, Take 1 tablet (1,000 mcg total) by mouth in the morning., Disp: , Rfl: cyclobenzaprine (FLEXERIL) 10 mg tablet, Take 1 tablet (10 mg total) by mouth 3 (three) times a day., Disp: , Rfl: DULoxetine (CYMBALTA) 30 mg capsule, Take 1 capsule (30 mg total) by mouth in the morning., Disp: ,Rfl: DULoxetine (CYMBALTA) 60 mg capsule, Take 1 capsule (60 mg total) by mouth in the morning., Disp: ,Rfl: estradioL (ESTRACE) 0.01 % (0.1 mg/gram) vaginal cream, Apply pea sized amount ( 1.5 g) to vaginal introitus nightly for 4 weeks then 1-2 times per week theregustavo, Disp: 42.5 g, Rfl: 2 fexofenadine (LAYLA) [...] given by office. Patient was given a [employer] voucher to use, this is not to [...] on pelvic organ prolapse and pessaries from . Patient would like to proceed with surgical management. Discussed reconstructive approaches. Will have the patient come back for urodynamic testing prior to surgical booking. Margot Marsh DO ObGyn Resident, PGY-3 * Jovon Asif MD - 04/02/2025 3:00 PM EDT I attest that I have personally seen and examined this patient and participated in the critical/keyportions of the service. I was directly involved [...] diarrhea, fecal incontinence. She is SA. 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 Past [...] with second degree uterine prolapse (Primary) - [facility] - Urogynecology - [place], [place] - Measure post void residual 2. History of reconstructive repair of rectocele - [facility] - Urogynecology - [place], [place] - Measure post void residual 3. Urge urinary incontinence - [facility] Urogynecology - [place], [place] - Measure post void residual She has and [employer] continence society stage II anterior compartment prolapse, cystocele, anduterine prolapse. We discussed treatment options at length. She was offered conservative managementwith pelvic floor physical therapy and pessary trial. She declines and desires definitive surgical m anagement. She is going to return for preoperative, reduced, multichannel, urodynamic testing. I think she will be a good candidate for minimally invasive hysterectomy with chinik tissue repair. We will discuss further at her next visit. documented in this encounterLutheran Hospital09-02-2025 Evaluation note* Diagnosis Onset Date Resolution Status Admit Date Carpal tunnel syndrome of right wrist acuteSeptember 2024 8:29amCervical stenosis of spineacuteSeptember 2024 8:29amPiriformis syndrome of right sideacuteSeptember 2024 8:29am [facility] Work Phone: 1(740) 958-787009-02-2025 Evaluation note* Diagnosis Onset Date Resolution Status Admit Date Carpal tunnel syndrome of right wrist acuteSeptember 2024 8:29amCervical stenosis of spineacuteSeptember 2024 8:29amPiriformis syndrome of right sideacuteSeptember 2024 8:29amClass 1 obesity due to excess calories without serious comorbidity in adultacute April 30, 2025 4:13pmFibromyalgiaacuteOctober 2024 4:13pmGERD without esophagitisacuteOctober 2024 4:13pmIDA (iron deficiency anemia)acuteOctober 2024 4:13pmNicotine dependenceacuteOctober 2024 4:13pm [facility] Work Phone: 1(886) 625-565809-02-2025 Evaluation note* Diagnosis Onset Date Resolution Status Admit Date Carpal tunnel syndrome of right wrist acuteSeptember 2024 8:29amCervical stenosis of spineacuteSeptember 2024 8:29amPiriformis syndrome of right sideacuteSeptember 2024 8:29amClass 1 obesity due to excess calories without serious comorbidity in adultacute April 30, 2025 4:13pmFibromyalgiaacuteOctober 2024 4:13pmGERD without esophagitisacuteOctober 2024 4:13pmIDA (iron deficiency anemia)acuteOctober 2024 4:13pmNicotine dependenceacuteOctober 2024 4:13pmOveractive bladder due to prolapse of female genital organacuteOctober 2024 4:13pm Severe episode of recurrent major depressive disorder, with psychotic features acuteOctober 2024 4:13pmAbdominal painacuteOctober 2024 2:21pm BloatingacuteOctober 2024 2:21pm [facility] Work Phone: 1(791) 610-174308-05-2025 History of Present illness Narrative* Pascale Arana NP - 02/25/2025 12:44 PM EDTAssociated Problem(s): Insomnia Current med: ambien Worse with depression/anxiety Cont working with psych * LIZANDRO PICAKRD - 02/25/2025 11:30 AM EDT 5 bulging [...] for last several weeks, she has seen psychiatric security nurse, meds changed and she is now onVraylar, [...] of the risks of continued smoking: stroke, [place], all forms of cancer, lung disease, and [...] of the risks of continued smoking: stroke, IL, all forms of cancer, lung disease, and . Options for quitting smoking include: cold turkey, hypnosis, acupuncture, nicotine replacement meds(gum, lozenges, and patches), Buproprion, and Varenicline. At this time pt is encouraged to evaluate their goals for wanting to quit smoking, and reach out toprovider when ready to start this process documented in this [facility]08-05-2025 Instructions* Patient Instructions* Pascale Arana NP - 02/25/2025 11:30 AM EDT Off work RTW date 03/25/25 documented in this [facility]08-04-2025 History of Present illness Narrative* Eunice Dias, [...] [facility]is working [facility] [place] [...] care as described above. documented in this encounterGolden Valley Memorial [id number] History of Present illness Narrative* Shelia Muniz DO - 02/06/2025 2:15 PM EDT [...] if mesh was utilized [facility] History of Present illness Narrative* Eunice Dias, [...] siblings and him having another family in [place]. She describes her mood as sad, anxious, [...] (11) who also lives there. 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 Has been with [employer] for 15 years. She states sheis currently [...] Groves NP as Nurse Practitioner (Family Medicine) NORM Marquez-BC as Nurse Practitioner (Behavioral Health) MENTAL STATUS [...] the local ER or call Suicide Hotline (644) for any psychosis, suicidal or homicidal ideation, or with any risk of harm to self or others. Patient was seen Face to Face, Total time spent with patient was 60 minutes, which includes reviewing chart documents, previous notes/records, counseling and discussion with patient and/or coordination of care as described above. documented in this [facility]06-16-2025 Telephone encounter Note* Telephone Encounter - Pascale Arana NP - 01/06/2025 6:12 PM EDT Pt states she was not contacted about her iron infusion can we check with TB about this [place] [facility] [id number] Miscellaneous Notes* Telephone Encounter - Pascale Arana NP - 01/06/2025 6:12 PM EDT Pt states she was not contacted about her iron infusion can we check with TB about this [place] documented in this [facility]06-16[facility]20[facility] History of Present illness Narrative* Pascale Arana [...] JESSIKA 7=21 and PHQ 9=25 * Pascale Arana, SENIOR WATER RESOURCES ENGINEER - 01/06/2025 4:30 PM EDT Images from [...] of the risks of continued smoking: stroke, [place], all forms of cancer, lung disease, and [...] of the risks of continued smoking: stroke, IL, all forms of cancer, lung disease, and [...] possible Current med: pantoprazole documented in this encounterGolden Valley Memorial [id number] Instructions* Patient Instructions* Pascale Arana NP - 01/06/2025 4:30 PM EDT Discontinue the citalopram Start lamotrigine 1 pill at night for 2 weeks, then increase to 1 pill twice a day after that documented in this [facility]05-28-2025 Telephone encounter Note* Telephone Encounter - LIZANDRO PICKARD - 12/18/2024 10:48 AM EDT [place]. This is Steve at [facility] calling in regards to 1 of Pascale giraldo's patients. Her name is Talia Gipson, and we need to clarify some orders with her. She is supposed to be coming later today. Give us a call back as soon as possible. [phone], extension [phone],thank you. [facility] [id number] Miscellaneous Notes* Telephone Encounter - LIZANDRO PICKARD - 12/18/2024 10:48 AM EDT [place]. This is Steve at [facility] calling in regards to 1 of Pascale giraldo's patients. Her name is Talia Gipson, and we need to clarify some orders with her. She is supposed to be coming later today. Give us a call back as soon as possible. [phone], extension [phone],thank you. documented in this [facility]04-30-2025 History of Present illness Narrative* Pascale Arana [...] they will approve Infed, I did contact [facility] 11/19/24 they can order it, [...] nursing note reviewed. Exam conducted with a habitat management coordinator present. Constitutional: General: She is not in [...] (Adipex-P) 37.5 MG tablet documented in this [facility]04-30-2025 Instructions* Patient Instructions* Pascale Arana NP - 11/20/2024 3:20 PM EDT Citalopram: currently on 40mg daily, cut pill in half so only at 20mg dose Stop the lanxoprazole, and will trial pantoprazole 40mg daily GERD and if not better at fu appt we will refer to GI We will call about PAP smear results documented in this [facility]04-02-[facility] History of Present illness Narrative* Pascale Arana [...] of the risks of continued smoking: stroke, IL, all forms of cancer, lung disease, and [...] of the risks of continued smoking: stroke, IL, all forms of cancer, lung disease, and [...] and sugary drinks. Pt meets qualifications of [facility] 4731-05-27 for weight loss. BMI>30 or >27 [...] Starting weight was 206 documented in this encounterGolden Valley Memorial [id number] History of Present illness Narrative* Pascale Arana [...] of the risks of continued smoking: stroke, IL, all forms of cancer, lung disease, and [...] contraindications OARRS reviewed Started on adipex in 2/25: starting weight 200 lbs Environmental and seasonal [...] of the risks of continued smoking: stroke, IL, all forms of cancer, lung disease, and [...] and sugary drinks. Pt meets qualifications of [facility] 4731-05-27 for weight loss. BMI>30 or >27 with comorbid conditions. Notify office with any symptoms of chest pain, dyspnea, heart palpitations, or any anxiety symptoms. F/U in 4 weeks to document weight loss. Increase physical activity as tolerated, and lower caloric intake to 1600 calories daily if no contraindications OARRS reviewed Started on adipex in 09/17: starting weight 200 lbs documented in this [facility]03-12-[facility]25 Instructions* Patient Instructions* Pascale Arana NP - 10/02/2024 5:00 PM EDT Check labs Mammogram: will send to [facility] PAP documented in this [facility]02-12-2025 Instructions* Patient Instructions* Angel Luis Groves NP - 09/04/2024 5:00 PM EST Keep up the good work!!! documented in this [facility]01-22-2025 Telephone encounter Note* Telephone Encounter - Nupur Oneal - 08/14/2024 11:46 AM EST Patient said her dose was increased and now she is out of this medication. Can you please refill. ANAYELI [facility] [id number] Miscellaneous Notes* Telephone Encounter - Nupur Oneal - 08/14/2024 11:46 AM EST Patient said her dose was increased and now she is out of this medication. Can you please refill. ANAYELI documented in this encounterGolden Valley Memorial [id number] History of Present illness Narrative* Pascale Arana [...] not better, add steroid nasal spray * Pacsale Arana NP - 08/12/2024 4:26 PM ESTAssociated [...] of the risks of continued smoking: stroke, IL, all forms of cancer, lung disease, and [...] of the risks of continued smoking: stroke, IL, all forms of cancer, lung disease, and [...] Orders SUPERFICIAL WOUND (HTRX) documented in this encounterGolden Valley Memorial [id number] Instructions* Patient Instructions* Pascale Arana NP - 08/12/2024 4:00 PM EST Z pack, finish this Fluids, rest Cont layla and we will add flonase nasal spray Warm compress to affected area, will treat based on culture report documented in this encounterGolden Valley Memorial HospitalVsxucwmevt09-06-2778 History of Present illness Narrative* Angel Luis [...] daily if no contraindications * Angel Luis Groves NP - 07/31/2024 3:00 PM EST Images from [...] (Adipex-P) 37.5 MG tablet documented [facility] this [facility]01-08-20[facility] Instructions* Patient Instructions* Angel Luis Groves NP - 07/31/2024 3:00 PM EST Notify office with any symptoms of chest pain, dyspnea, heart palpitations, or any anxiety symptoms. F/U in 4 weeks to document weight loss. Increase physical activity as tolerated, and lower caloricintake to 1600 calories daily if no contraindications. documented in this [facility]01-01-2025 History of Present illness Narrative* Angel Luis Groves NP - 09/04/2024 5:00 PM EST Images from [...] into month two. Pt meets qualifications of [facility] 4731-05-27 for weight loss. BMI>30 or >27 [...] into month two. Pt meets qualifications of [facility] 4731-05-27 for weight loss. BMI>30 or >27 with comorbid conditions. Blood pressure WNL. Notify office with any symptoms of chest pain, dyspnea, heart palpitations, or any anxiety symptoms. F/U in 4 weeks to document weight loss. Increase physical activity as tolerated, and lower caloric intake to 1600 calories daily if no contraindications. documented in this [facility]11-11-2024 Telephone encounter Note* Telephone Encounter - Mar Powers MA - 06/03/2024 9:10 AM EST Pt takes the 60mg in morning and 30 mg in the afternoon, so both. [facility] [id number] Miscellaneous Notes* Telephone Encounter - Mar Powers MA - 06/03/2024 9:10 AM EST Pt takes the 60mg in morning and 30 mg in the afternoon, so both. * Telephone Encounter - Nupur Oneal - 06/03/2024 8:50 AM EST Patient is asking for a 90 day supply. Patient said 60 mg were denied. documented in this [facility]11-11-2024 Telephone encounter Note* Telephone Encounter - Nupur Oneal - 06/03/2024 8:50 AM EST Patient is asking for a 90 day supply. Patient said 60 mg were denied. [facility] [id number] History of Present illness Narrative* Angel Luis [...] pain has since resolved. documented in this encounterGolden Valley Memorial [id number] History of Present illness Narrative* Angel Luis [...] ABDOMINAL PAIN. PT SCHEDULED TO SEE GI [place] ON 03/18 AT 1500. ). HPI IS here today for one week follow-up for constipation. Prescrivbed lacutlose at last visit-did not shredder picker. Went on vacation to in [facility] in [place] for the weekend and had X3 BM's. Denies blood in stool. States she has been stressed recentlty and feels being away heloped her relax and she was finally able to pass BM. Sees GI in [place] on Sunday 03/18 @ 3pm. Still has [...] with GI next week. documented in this encounterGolden Valley Memorial [id number] Instructions* Patient Instructions* Angel Luis Groves NP - 03/12/2024 3:30 PM EDT Referral sent to Rheumatology- Dr. Muller in [place], [place]- they will call you! Have mammogram completed. Call if you need anything! documented in this encounterGolden Valley Memorial HospitalXjgaovbwco41-20-1872 NoteChief Complaint consultation for colonoscopy HPI Staff [...] fibromyalgia, referred for severe anemia, admitted to [facility] in January with hb of 5; [...] mg Cap-DR, 30 mg= (more content not included)...[facility] CenterComment on above:Result Comment: Electronically Signed By: AMIE WELLER, Segun Qureshi.meena\Date and Time Signed: 06/07/23 17:17 [id number] Evaluation + Plan note Diagnostic Tests Pending * Iron Level 06/07/23 * Ferritin 06/07/23 * Vitamin B12 Level 06/07/23 General Surgery [facility] 09-15-2023 NoteCardiology Clinic Note Subjective Talia Rutherford [...] Palpitations -Resolved, likely exacerbated (more content not included)...[facility]09-15-2023 NotePatient here for 2 mo follow [...] Systems All other systems reviewed and are negative.[facility] 02-08-2023 NoteCardiovascular Medicine [facility] SUBJECTIVE Chief Complaint Patient presents with Establish [...] about 6 weeks (around 03/22/2023). Carol Webb APRN-[facility] Cardiovascular MedicinePark[facility]11-08-2022 Note PROCEDURE: XR FOOT LT MIN [...] Electronically authenticated by: TAMIKO NETTLES Date: 2022-05-31 20:30[facility]10-19-2022 NotePROCEDURE: XR FOOT LT MIN 3 [...] Electronically authenticated by: ELLIOT JOSE Date: 2022-05-11 16:14[facility]09-27-2022 NotePROCEDURE: XR FOOT LT MIN 3 [...] Electronically authenticated by: TAMIKO NETTLES Date: 2022-04-19 18:16[facility]09-07-2022 NotePROCEDURE: XR FOOT LT MIN 3 VIEWS [...] Electronically authenticated by: TAMIKO NETTLES Date: 2022-03-30 06:41[facility]08-19-2022 NotePROCEDURE: XR FOOT LT MIN 3 VIEWS [...] Electronically authenticated by: ELLIOT JOSE Date: 2022-03-11 08:26[facility]08-19-2022 NotePROCEDURE: XR FOOT LT 2V HISTORY: Pain COMPARISON: XR foot left 02/09/2022 FINDINGS: BONES:Multiple intraoperative images demonstrate mechanical fusion of the second and third tarsal-metatarsal joints. SOFT TISSUES:Expected intraoperative findings. EFFUSION:None visible. OTHER: Negative. IMPRESSION: 1. Mechanical fusion of second and third tarsal-metatarsal joints. Electronically authenticated by: ELLIOT JOSE Date: 2022-03-11 07:55[facility]07-21-2022 NotePROCEDURE: XR FOOT LT MIN 3 VIEWS COMPARISON: 12/15/2020 HISTORY: Pain FINDINGS: BONES:No acute fracture or dislocation. Stable moderate degenerative changes most significant at the tarsometatarsal joints. Moderate plantar enthesopathic spurring of the calcaneus SOFT TISSUES:Negative. No visible soft tissue swelling. EFFUSION:None visible. OTHER: Negative. IMPRESSION: Stable moderate degenerative changes Electronically authenticated by: TAMIKO NETTLES Date: 2022-02-10 07:37[facility]02-07-2022 Evaluation note* Encounter Date Diagnosis Assessment Notes Treatment Notes Treatment Clinical Notes Aug, Contact with and (sparks spected) exposure to other viral communicable diseases (ICD-10 - Z20.828) Aug,Viral URI (ICD-10 - J06.9) Advised patient that [...] treatment plan. Patient left in stable condition Aug,therAdditional time spent conducting pre-visit phone call, screening for symptoms, instructions on social distancing, application and removal of PPE, and cleaning of examination room, equipment and supplies was preformed. Patient education given for testing methodology and results. Patient care instructions given in writting by [facility] Care At Home document Jobyal Other Evaluation note* Diagnosis Bipolar disorder with severe depression (CMS/HCC) documented in this encounter [facility] HealthcareEvaluation noteNo assessment information availableProtestant Deaconess [facility]tr Work Phone: Evaluation note* Diagnosis [...] Primary Screening for diabetes mellitus Seizure-like activity ([facility]) Fluid level behind tympanic membrane of [...] in full remission, most recent episode depressed ([facility]) Psychophysiological insomnia Persistent disorder of initiating or maintaining sleep B12 deficiency Fibromyalgia Unspecified myalgia and myositis Screening mammogram for breast cancer Bipolar disorder, current episode depressed, severe, without psychotic features ([facility]) Psychophysiological insomnia Persistent disorder of initiating or maintaining sleep Fibromyalgia Unspecified myalgia and myositis Iron deficiency anemia secondary to inadequate dietary iron intake B12 deficiency B12 deficiency- Primary Bipolar disorder, current episode depressed, severe, without psychotic features ([facility]) Psychophysiological insomnia Persistent disorder of initiating [...] gastric bypass Bipolar disorder with severe depression ([facility]) Encounter for screening mammogram for breast cancer- Primary Screening for diabetes mellitus Seizure-like activity ([facility]) Fluid level behind tympanic membrane of [...] in full remission, most recent episode depressed ([facility]) Psychophysiological insomnia Persistent disorder of initiating [...] gastric bypass Bipolar disorder with severe depression ([facility]/HCC) Encounter for screening mammogram for breast cancer- Primary Screening for diabetes mellitus Seizure-like activity ([facility]/HCC) Fluid level behind tympanic membrane of both [...] in full remission, most recent episode depressed ([facility]) Psychophysiological insomnia Persistent disorder of initiating or maintaining sleep B12 deficiency Fibromyalgia Unspecified myalgia and myositis Screening mammogram for breast cancer Bipolar disorder, current episode depressed, severe, without psychotic features ([facility]/HCC) Psychophysiological insomnia Persistent disorder of initiating or maintaining sleep Fibromyalgia Unspecified myalgia and myositis Iron deficiency anemia secondary to inadequate dietary iron intake B12 deficiency B12 deficiency- Primary Bipolar disorder, current episode depressed, severe, without psychotic features ([facility]/HCC) Psychophysiological insomnia Persistent disorder of initiating or [...] gastric bypass Bipolar disorder with severe depression ([facility]/HCC) Encounter for screening mammogram for breast cancer- [...] Primary Screening for diabetes mellitus Seizure-like activity ([facility]/HCC) Fluid level behind tympanic membrane of both [...] in full remission, most recent episode depressed ([facility]/HCC) Psychophysiological insomnia Persistent disorder of initiating or [...] current episode depressed, severe, without psychotic features ([facility]/HCC) Psychophysiological insomnia Persistent disorder of initiating or [...] Primary Screening for diabetes mellitus Seizure-like activity ([facility]) Fluid level behind tympanic membrane of [...] deficiency BMI 32.0-32.9,adult documented in this encounter [facility] HealthcareEvaluation note* Diagnosis Breast [...] female genital organ documented in this encounter [facility] HealthcareEvaluation note* Diagnosis Breast screening- Primary [...] whether esophagitis present documented in this encounter [facility] HealthcareEvaluation note* Diagnosis Breast screening- Primary [...] Primary Screening for diabetes mellitus Seizure-like activity ([facility]) Fluid level behind tympanic membrane of [...] in full remission, most recent episode depressed ([facility]) Psychophysiological insomnia Persistent disorder of initiating or maintaining sleep B12 deficiency Fibromyalgia Unspecified myalgia and myositis Screening mammogram for breast cancer Bipolar disorder with severe depression ([facility]/HCC)- Primary Psychophysiological insomnia Persistent disorder of initiating [...] of tympanic membranes documented in this encounter [facility] HealthcareEvaluation note* Diagnosis Breast screening- Primary [...] gastric bypass Bipolar disorder with severe depression ([facility]/HCC) Encounter for screening mammogram for breast cancer- Primary Screening for diabetes mellitus Seizure-like activity ([facility]) Fluid level behind tympanic membrane of [...] Primary Screening for diabetes mellitus Seizure-like activity ([facility]) Fluid level behind tympanic membrane of [...] of tympanic membranes documented in this encounter [facility] HealthcareEvaluation note* Diagnosis Cystocele with second degree uterine prolapse- Primary History of reconstructive repair of rectocele Urge urinary incontinence Urge incontinence Incomplete emptying of bladder Incomplete bladder emptying Atrophic vaginitis Postmenopausal atrophic vaginitis [facility]* Diagnosis Breast screening- Primary [...] Status Admit Date Cervical stenosis of spine acuteSeptember 2024 8:29am [facility] Work Phone: Evaluation note* Diagnosis Breast [...] incontinence Urge incontinence [facility]* Diagnosis Breast screening- Primary [...] incontinence Urge incontinence documented in this encounter [facility] SystemHistory general Narrative - Reported* Type Description Date Medical History anxiety Medical HistoryGERD Jobyal Other Hospital course Narrative No data available for this section General Surgery [facility] Discharge instructions No data available for this section General Surgery [employer] Instructions* Attachments The following attachments cannot be sent through Care Everywhere. * Pelvic floor muscle exercises (Fijian) documented in this encounterProEther Optronics ([place]) Co., Ltd. SystemInstructionsNot on file documented in this encounterSpringfield HospitalEther Optronics ([place]., [employer] SystemInstructionsNot on file documented in this encounterSpringfield HospitalEther Optronics ([place]., [employer] SystemInstructionsNot on file documented in this encounterSpringfield HospitalEther Optronics ([place]., [employer] SystemProgress note No data available for this section General Surgery [facility] Reason for referral (narrative)* Consultation (Routine) - Pending ReviewSpecialtyDiagnoses / ProceduresReferred By ContactReferred To ContactRheumatology Diagnoses Fibromyalgia Procedures [place] OFFICE/OUTPATIENT [facility] 60 MINUTES Angel Luis Groves NP [address] [place] [address] Tyson Collazo MD [address] [place] [address] Referral IDStatusReasonStart DateExpiration DateVisits RequestedVisits [id number] Review Specialty Services Required / Scheduling Instructions Please include OV note from today And labs from 07/28/2023 CHERYL MonteroRerochelle for referral (narrative)No reason for referral information availableWilson Street Hospital Work Phone: Reason for visit Narrative* Consultation (Routine) - ClosedSpecialtyDiagnoses / ProceduresReferred By ContactReferred To Contact Urogynecology / Gynecology Diagnoses Cystocele with second degree uterine prolapse History of reconstructive repair of rectocele Urge urinary incontinence Shelia Muniz DO [address] [place] [address] Phone: tel: fax: Jovon Asif MD [address], [address] [address] Phone: tel: fax: Referral IDStatusReasonStart DateExpiration DateVisits RequestedVisits [id number] Specialty Services Required / [facility] Summary Purpose Family History No Family History Records Found Relationship Condition Age at Onset Recorded Date/T arlet father Diabetes mellitus Unknown History of strokeUnknownHypertensionUnknownHeart diseaseUnknownDeceasedUnknown motherDeceasedUnknownDiabetes mellitusUnknown Advance Directives No Advanced Directives Records Found [...] stenosis, cervical region Septemb er 2024 8:29am G56.April 23, 2025 8: 25am Reason for Visit [...] Nicotine dependence April 30, 2025 4: 13pm Chief Complaint Admit Date Spinal stenosis, cervical region Septemb er 2024 8:29am G56.01 April 23, 2025 8: 25am Established Patient April 30, 2025 4: 13pm REF GERD, CARA, BARIATRIC SURGERY STATUS May 05, 2025 2:21pm Reason for Visit Admit Date Carpal tunnel syndrome of right wrist Se ptember 2024 8:29am Cervical stenosis of spine March 8:29am Piriformis syndrome of right side Septem 2024 8:29am Class 1 obesity due to [...] :21pm Bloating May 05, 2025 2 :21pm Additional Source Comments INFORMATION SOURCE (unrecogn ized section and content) DATE CREATED AUTHOR 11/16/2018 [facility] DATE CREATED AUTHOR AUTHOR'S ORGANIZ ATION 06/05/2022 [facility] DATE CREATED AUTHOR AUTHOR'S ORGANIZ ATION 04/09/2023 [facility] DATE CREATED AUTHOR AUTHOR'S ORGANIZ ATION 03/20/2024 [facility] [facility] DATE CREATED AUTHOR AUTHOR'S ORGANIZ ATION 2025 [facility] DATE CREATED AUTHOR AUTHOR'S ORGANIZ ATION 04/11/2025 [facility] EPIC DATE CREATED AUTHOR AUTHOR'S ORGANIZ ATION 05/04/2025 [facility] DATE CREATED AUTHOR AUTHOR'S ORGANIZ ATION 05/10/2025 [facility] REASON FOR VISIT (unrecogniz ed section and content) ReasonCommentsMed RefillReasonOnset DateCommentsMed Kutyyx2906/03/2024easonOnset DateCommentsMed Bsydzl834ReasonCommentsFollow-upCONSTIPATION, PT HAS HAD THREE BM'S SINCE LAST VISIT. PT IS STILL HAVING ABDOMINAL PAIN. PT SCHEDULED TO SEE GUDELIA GONZALEZ ON 03/18 AT 1500.ReasonCommentsFollow-upReasonOnset DateComments Med Ukzshl8207/25/2024ReasonCommentsFollow-up3 mHot flashesReasonCommentsSore ThroatReasonOnset DateCommentsMed Olepum0208/14/2024ReasonCommentsWeight Check ReasonOnset DateCommentsMed Vdnget1209/06/2024ReasonOnset DateCommentsMed Refill 10/23/2024ReasonOnset DateCommentsMed Gqlunp2511/18/2024ReasonCommentsWeight Check ReasonCommentsPsychiatric EvaluationSpecialtyDiagnoses / ProceduresReferred By ContactReferred To ContactBehavioral Health Diagnoses Bipolar disorder with severe depression (HCC) Procedures [place] OFFICE/OUTPATIENT NEW HIGH MDM 60 MINUTES Pascale Arana, MARY JO [address] [place] [address] Phone: tel: fax: Eunice Dias, PMHNP-BC [address] [facility] [address] [place] [address] Phone: tel: fax: Referral IDStatusReasonStart DateExpiration DateVisits RequestedVisits [id number] Specialty Services Required [id number] PatientNew Patient presents for evaluation of a possible rectocele.ReasonCommentsMed ManagementFollow-upReason CommentsBipolar disorder with severe depressionReasonCommentsAnxietyDepression PTSD (Post-Traumatic Stress Disorder)ReasonCommentsFollow-upMed Management Sleeping ProblemPTSD (Post-Traumatic Stress Disorder)AnxietyReasonComments DepressionAnxietyPTSD (Post-Traumatic Stress Disorder) Patient Care team informatio n (unrecognized section and content) Team MemberRelationshipSpecialtyStart DateEnd Date Shaikh Main MD PCP - GeneralInternal Medicine04/20/23 Team Status: Active Member Role Status Dates Conrad Ahn DO Attending Provider Active Sta rt: February 26, 2024 Team Status: Inactive Member Role Status Dates Tyson Collazo MD Attending Provider Active St art: April 18, 2024 End: April 18, 2024Team MemberRelationshipSpecialtyStart DateEnd Date Molina De Anda MD [address] [place] [address] PCP - Generalmily Medicine02/21/24 Angel Luis Groves NP [address] [place] [address] Nurse PractitionerFawily Medicine02/21/24Team MemberRelationshipSpecialtyStart DateEnd Date Molina De Anda MD [address] [place] [address] PCP - Generalmily Medicine02/21/24 Angel Lius Groves NP [address] [place] [address] Nurse [facility]02/21/24Team MemberRelationshipSpecialtyStart DateEnd Date Molina De Anda MD [address] [place] [address] PCP - [facility]02/21/24 Angel Luis Groves NP [address] [place] [address] Nurse PractitionerP[facility]02/21/24Team MemberRelationshipSpecialtyStart DateEnd Date Molina De Anda MD [address] [place] [address] PCP - [facility]02/21/24 Angel Luis Groves NP [address] [place] [address] Nurse PractitionerP[facility]02/21/24Team MemberRelationshipSpecialtyStart DateEnd Date Molina De Anda MD [address] [place] [address] PCP - GeneralP[facility]02/21/24 Angel Luis Groves NP [address] [place] [address] Nurse PractitionerP[facility]02/21/24Team MemberRelationshipSpecialtyStart DateEnd Date Molina De Anda MD [address] [place] [address] PCP - Generalmily Medicine02/21/24 Angel Luis Groves NP [address] [place] [address] Nurse PractitionerP[facility]02/21/24Team MemberRelationshipSpecialtyStart DateEnd Date Molina De Anda MD [address] [place] [address] PCP - GeneralP[facility]02/21/24 Angel Luis Groves NP [address] [place] [address] Nurse PractitionerP[facility]02/21/24Team MemberRelationshipSpecialtyStart DateEnd Date Molina De Anda MD [address] [place] [address] PCP - Generalmi Medicine02/21/24 Angel Luis Groves, MARY JO [address] [place] [address] Nurse [facility] Medicine02/21/24Team MemberRelationshipSpecialtyStart DateEnd Date Molina De Anda MD [address] [place] [address] PCP - Generalmi Medicine02/21/24 Angel Luis Groves NP [address] [place] [address] Nurse PractitionerP[facility]02/21/24Team MemberRelationshipSpecialtyStart DateEnd Date Molina De Anda MD [address] [place] [address] PCP - GeneralP[facility]02/21/24 Angel Luis Groves NP [address] [place] [address] Nurse Pract[facility]erP[facility]02/21/24Team MemberRelationshipSpecialtyStart DateEnd Date Molina De Anda MD [address] [place] [address] PCP - [facility]02/21/24 Angel Luis Groves NP [address] [place] [address] Nurse PractitionerP[facility]02/21/24Team MemberRelationshipSpecialtyStart DateEnd Date Molina De Anda MD [address] [place] [address] PCP - GeneralP[facility]02/21/24 Angel Luis Groves NP [address] [place] [address] Nurse PractitionerP[facility]02/21/24Team MemberRelationshipSpecialtyStart DateEnd Date Molina De Anda MD [address] [place] [address] PCP - Generalmily Medicine02/21/24 Angel Luis Groves NP [address] [place] [address] Nurse Pract[facility] Medicine02/21/24Team MemberRelationshipSpecialtyStart DateEnd Date Molina De Anda MD [address] [place] [address] PCP - [facility]02/21/24 Angel Luis Groves, MARY JO [address] [place] [address] Nurse PractitionerP[facility]02/21/24Team MemberRelationshipSpecialtyStart DateEnd Date Molina De Anda MD [address] [place] [address] PCP - Generalmi Medicine02/21/24 Angel Luis Groves, MARY JO [address] [place] [address] Nurse Pract[facility] Medicine02/21/24Team MemberRelationshipSpecialtyStart DateEnd Date Molina De Anda MD [address] [place] [address] PCP - Generalmi Medicine02/21/24 Angel Luis Groves NP [address] [place] [address] Nurse Pract[facility]erP[facility]02/21/24Team MemberRelationshipSpecialtyStart DateEnd Date Molina De Anda MD [address] [place] [address] PCP - [facility]02/21/24 Angel Luis Groves NP [address] [place] [address] Nurse Pract[facility]02/21/24Team MemberRelationshipSpecialtyStart DateEnd Date Molina De Anda MD [address] [place] [address] PCP - [facility]02/21/24 Angel Luis Groves NP [address] [place] [address] Nurse Pract[facility]02/21/24Team MemberRelationshipSpecialtyStart DateEnd Date Molina De Anda MD [address] [place] [address] PCP - [facility]02/21/24 Angel Luis Groves NP [address] [place] [address] Nurse Pract[facility]erP[facility]02/21/24Team MemberRelationshipSpecialtyStart DateEnd Date Molina De Anda MD [address] [place] [address] PCP - [facility]02/21/24 Angel Luis Groves NP [address] [place] [address] Nurse Pract[facility]erP[facility]02/21/24Team MemberRelationshipSpecialtyStart DateEnd Date Molina De Anda MD [address] [place] [address] PCP - [facility]02/21/24 Angel Luis Groves NP [address] [place] [address] Nurse [facility]02/21/24Team MemberRelationshipSpecialtyStart DateEnd Date Molina De Anda MD [address] [place] [address] PCP - [facility]02/21/24 Angel Luis Groves NP [address] [place] [address] Nurse [facility]02/21/24Team MemberRelationshipSpecialtyStart DateEnd Date Molina De Anda MD [address] [place] [address] PCP - [facility]02/21/24 Angel Luis Groves NP [address] [place] [address] Nurse Practitionermily Medicine02/21/24Team MemberRelationshipSpecialtyStart DateEnd Date Molina De Anda MD [address] [place] [address] PCP - Generalmi Medicine02/21/24 Angel Luis Groves NP [address] [place] [address] Nurse Pract[facility]02/21/24Team MemberRelationshipSpecialtyStart DateEnd Date Molina De Anda MD [address] [place] [address] PCP - [facility]02/21/24 Angel Luis Groves NP [address] [place] [address] Nurse Pract[facility]erP[facility]02/21/24Team MemberRelationshipSpecialtyStart DateEnd Date Molina De Anda MD [address] [place] [address] PCP - [facility] Medicine02/21/24 Angel Luis Groves, MARY JO [address] [place] [address] Nurse Pract[facility]02/21/24Team MemberRelationshipSpecialtyStart DateEnd Date Molina De Anda MD [address] [place] [address] PCP - Generalmi Medicine02/21/24 Angel Luis Groves NP [address] [place] [address] Nurse Pract[facility]02/21/24Team MemberRelationshipSpecialtyStart DateEnd Date Molina De Anda MD [address] [place] [address] PCP - [facility]02/21/24 Angel Luis Groves NP [address] [place] [address] Nurse Pract[facility]02/21/24Team MemberRelationshipSpecialtyStart DateEnd Date Molina De Anda MD [address] [place] [address] PCP - [facility]02/21/24 Angel Luis Groves NP [address] [place] [address] Nurse Pract[facility]02/21/24Team MemberRelationshipSpecialtyStart DateEnd Date Molina De Anda MD [address] [place] [address] PCP - [facility]02/21/24 Angel Luis Groves NP [address] [place] [address] Nurse [facility]02/21/24Team MemberRelationshipSpecialtyStart DateEnd Date Molina De Anda MD [address] [place] [address] PCP - [facility]02/21/24 Angel Luis Groves NP [address] [place] [address] Nurse Pract[facility]02/21/24Team MemberRelationshipSpecialtyStart DateEnd Date Molina De Anda MD [address] [place] [address] PCP - [facility]02/21/24 Angel Luis Groves NP [address] [place] [address] Nurse Pract[facility]02/21/24Team MemberRelationshipSpecialtyStart DateEnd Date Molina De Anda MD [address] [place] [address] PCP - [facility]02/21/24 Angel Luis Groves NP [address] [place] [address] Nurse [facility]02/21/24Team MemberRelationshipSpecialtyStart DateEnd Date Molina De Anda MD [address] [place] [address] PCP - [facility]02/21/24 Angel Luis Groves NP [address] [place] [address] Nurse [facility]02/21/24Team MemberRelationshipSpecialtyStart DateEnd Date Molina De Anda MD [address] [place] [address] PCP - GeneralFamily Medicine02/21/24 Angel Luis Groves NP [address] [place] [address] Nurse [facility] Medicine02/21/24Team MemberRelationshipSpecialtyStart DateEnd Date Molina De Anda MD [address] [place] [address] PCP - Generalmi Medicine02/21/24 Angel Luis Groves NP [address] [place] [address] Nurse [facility]02/21/24Team MemberRelationshipSpecialtyStart DateEnd Date Molina De Anda MD [address] [place] [address] PCP - Generalmi Medicine02/21/24 Angel Luis Groves NP [address] [place] [address] Nurse [facility] Medicine02/21/24Team MemberRelationshipSpecialtyStart DateEnd Date Molina De Anda MD [address] [place] [address] PCP - [facility]02/21/24 Angel Luis Groves NP [address] [place] [address] Nurse [facility] Medicine02/21/24Team MemberRelationshipSpecialtyStart DateEnd Date Molina De Anda MD [address] [place] [address] PCP - [facility]02/21/24 Angel Luis Groves NP [address] [place] [address] Nurse [facility]02/21/24Team MemberRelationshipSpecialtyStart DateEnd Date Molina De Anda MD [address] [place] [address] PCP - [facility]02/21/24 Angel Luis Groves NP [address] [place] [address] Nurse [facility]02/21/24 [facility] [address] [facility] [address] [place] [address] Nurse [facility]01/22/25Te MemberRelationshipSpecialtyStart DateEnd Date Molina De Anda MD [address] [place] [address] [facility]02/21/24 Angel Luis Groves NP [address] [place] [address] Nurse Pract[facility]02/21/24 Eunice Dias [facility] [address] [facility] [address] [place] [address] Nurse [facility]01/22/25Team MemberRelationshipSpecialtyStart DateEnd Date Molina De Anda MD [address] [place] [address] PCP - GeneralFamily Medicine02/21/24 Angel Luis Groves, MARY JO [address] [place] [address] Nurse PractitionerMyrtue Medical Centerly [facility]02/21/24 [facility] [address] [place] [address] [place] [address] Nurse [facility]01/22/25Team MemberRelationshipSpecialtyStart DateEnd Date No Pcp, [place] [address] PCP - GeneralFamily Medicine11/21/18Team MemberRelationshipSpecialtyStart DateEnd Date Molina De Anda MD [address] [place] [address] PCP - GeneralMyrtue Medical Centerly [facility]02/21/24 Angel Luis Groves, MARY JO [address] [place] [address] Nurse [facility]02/21/24 [facility] [address] [facility] [address] [place] [address] Nurse Pract[facility]Mer[facility]01/22/25Team MemberRelationshipSpecialtyStart DateEnd Date Molina De Anda MD [address] [place] [address] PCP - [facility]02/21/24 Angel Luis Groves NP [address] [place] [address] Nurse [facility]02/21/24 Eunice Dias [facility] [address] [facility] [address] [place] [address] Nurse [facility]01/22/25Te MemberRelationshipSpecialtyStart DateEnd Date Molina De Anda MD [address] [place] [address] PCP - [facility]02/21/24 Angel Luis Groves NP [address] [place] [address] Nurse [facility]02/21/24 Eunice Dias [facility] [address] [facility] [address] [place] [address] Nurse [facility]01/22/25Te MemberRelationshipSpecialtyStart DateEnd Date Molina De Anda MD [address] [place] [address] PCP - [facility]02/21/24 Angel Luis Groves NP [address] [place] [address] Nurse [facility]02/21/24 Eunice Dias [facility] [address] [facility] [address] [place] [address] Nurse PractitionerBehavioral Health01/22/25Team MemberRelationshipSpecialtyStart DateEnd Date Molina De Anda MD [address] [place] [address] PCP - GeneralFamily Medicine02/21/24 Angel Luis Groves, MARY JO [address] [place] [address] Nurse Practitionermily Medicine02/21/24 [facility] [address] [place] [address] [place] [address] Nurse [facility]Mer[facility]01/22/25Team MemberRelationshipSpecialtyStart DateEnd Date No Pcp, [place] [address] PCP - GeneralFamily Medicine11/21/18Team MemberRelationshipSpecialtyStart DateEnd Date Molina De Anda MD [address] [place] [address] PCP - GeneralFamily Medicine02/21/24 Angel Luis Groves, MARY JO [address] [place] [address] Nurse PractitionerMyrtue Medical Centerly Medicine02/21/24 [facility] [address] [facility] [address] [place] [address] Nurse Practitionerhavioral [facility]01/22/25Team MemberRelationshipSpecialtyStart DateEnd Date Molina De Anda MD [address] [place] [address] PCP - GeneralFamily Medicine02/21/24 Angel Luis Groves, MARY JO [address] [place] [address] Nurse [facility]02/21/24 Eunice Dias [facility] [address] [facility] [address] [place] [address] Nurse Pract[facility]erMer[facility]01/22/25Te MemberRelationshipSpecialtyStart DateEnd Date Molina De Anda MD [address] [place] [address] PCP - [facility]02/21/24 Angel Luis Groves, MARY JO [address] [place] [address] Nurse [facility]02/21/24 Eunice Dias [facility] [address] [facility] [address] [place] [address] Nurse Pract[facility]erMer[facility]01/22/25Te MemberRelationshipSpecialtyStart DateEnd Date Molina De Anda MD [address] [place] [address] PCP - [facility]02/21/24 Angel Luis Groves, MARY JO [address] [place] [address] Nurse Pract[facility]02/21/24 Eunice Dias, [facility] [address] [facility] [address] [place] [address] Nurse PractitionerBehavioral Health01/22/25 Rohan Waters LPC Social WorkerBehavioral [facility]03/06/25 Team Status: Active Member Role Status Dates Pascale Arana Primary Care Provider Active Team Status: Inactive Member Role Status Dates Shun Arshad MD Attending Provider Active Star t: March 25, 2025 End: March 25, 2025Lisa Bang [facility] Care ProviderActiveStart: March 25, 2025 End: March 25, 2025Team MemberRelationshipSpecialtyStart DateEnd Date Molina De Anda MD PCP - GeneralFamily Medicine02/21/24 Angel Luis Groves NP Nurse PractitionerMyrtue Medical Centerly Medicine02/21/24 Eunice Dias [facility] [address] [facility] [address] [place] [address] Nurse PractitionerBehavioral Health01/22/25 Rohan Waters LPC Social WorkerBehavioral [facility]03/06/25Team MemberRelationshipSpecialtyStart Date End Date Molina De Anda MD PCP - GeneralFawily Medicine02/21/24 Angel Luis Groves NP Nurse PractitionerMyrtue Medical Centerly Medicine02/21/24 Eunice Dias [facility] [address] [facility] [address] [place] [address] Nurse PractitionerBehavioral Health01/22/25 Rohan Waters LPC Social WorkerBehavioral Health03/06/25Team MemberRelationshipSpecialtyStart Date End Date Molina De Anda MD PCP - GeneralFamily Medicine02/21/24 Angel Luis Groves NP Nurse PractitionerFamily Medicine02/21/24 Eunice Dias, [facility] [address] [facility] [address] [place] [address] Nurse PractitionerBehavioral Health01/22/25 Rohan Waters LPC Social WorkerBehavioral Health03/06/25Team MemberRelationshipSpecialtyStart Date End Date Pascale Arana, MEDICAID SERVICE COORDINATOR-EXTENSION AGENT [facility] [place] [address] PCP - GeneralNurse Practitioner04/02/25Team MemberRelationshipSpecialtyStart Date End Date Molina De Anda MD PCP - GeneralFamily Medicine02/21/24 Angel Luis Groves, MARY JO Nurse PractitionerFamily Medicine02/21/24 Eunice Dias, [facility] [address] [facility] [address] [place] [address] Nurse PractitionerBehavioral Health01/22/25 Rohan Waters RELEASE OF INFORMATION SPECIALIST Social WorkerBehavioral Health03/06/25Team MemberRelationshipSpecialtyStart Date End Date Molina De Anda MD PCP - GeneralFamily Medicine02/21/24 Angel Luis Groves NP Nurse PractitionerFabarnstable county hospital Medicine02/21/24 Eunice Dias, [facility] [address] [address] Nurse PractitionerGaebler [facility] Health01/22/25 Rohan Waters LPC Social Workerhavioral Health03/06/25 Team Status: Active Member Role Status Dates Pascale Arana SENIOR WATER RESOURCES ENGINEER-C Primary Care Provider Active Team Status: Inactive Member Role Status Dates Shun Arshad MD Attending Provider Active Star t: March 25, 2025 End: March 25, 2025Pascale Arana NP-CPrimary Care ProviderActiveStart: March 25, 2025 End: March 25, 2025 Team Status: Inactive Member Role Status Dates Pascale Arana SENIOR WATER RESOURCES ENGINEER-C Primary Care Provider Active Start: April 23, 2025 End: April 23, 2025Sylvia Middleton ProviderActiveStart: April 23, 2025 End: April 23, 2025 Team Status: Active Member Role Status Dates Pascale Arana SENIOR WATER RESOURCES ENGINEER-C Primary Care Provider Active Start: April 23, 2025 Shun Arshad MDOther ProviderActiveStart: April 23, 2025 Sylvia Castelan ProviderActiveStart: April 23, 2025 Team Status: Inactive Member Role Status Dates Pascale Arana SENIOR WATER RESOURCES ENGINEER-C Primary Care Provider Active Start: April 30, 2025 End: April 30, 2025Pascale Arana NP-CAttending ProviderActiveStart: April 30, 2025 End: April 30, 2025Team MemberRelationshipSpecialtyStart DateEnd Date Pascale Arana, MEDICAID SERVICE COORDINATOR-EXTENSION AGENT [place] [address] PCP - GeneralNurse Practitioner04/02/25 Team Status: Active Member Role Status Dates Pascale Arana NP-C Primary Care Provider Active Start: May 05, 2025 Pascale Arana NP-Jovany ProviderActiveStart: May 05, 2025 Team Status: Inactive Member Role Status Dates JAVIER Malik Primary Care Provider Active Start: May 05, 2025 End: May 05, 2025Lydia Wright ProviderActiveStart: May 05, 2025 End: May 05, 2025 Goals (unrecognized section and content) Goals may [...] BE BASED ON THE PRIMARY CLINICAL RECORDS. [employer] provides no warranty or guarantee of the accuracy or completeness of information in this document.
--- OUTSIDE RECORDS SUMMARY | 2025-05-14 15:37 | XMS_ITS | Patient Health Record ---
Author Organization [facility] in [place] Address [address] [place] [address] Care Team Providers Care Heel Cover Splitter Name Role Phone None, Unknown or Primary Care Provider Unavailab Tawana [facility] [phone] Allergies Allergen (clinical drug ingredient) Drug/Non Drug Allergy documented on EMR Reaction Allergy Type Onset Date Status PenicillinrashDrug AllergyActive Results Component Value Reference Range Notes CT FOOT LT WO CON (Not yet r eviewed by provider) Interpretation: Performing Lab: Notes/Report: Source Facility: [place] [address] CT Scan Report Signed Patient: TALIA RUTHERFORD MR#: [id number] : 1970 Acct:[id number] Age/Sex: 54 / F ADM Date: 09/09/24 Loc: CT Attending Dr: Tawana Hoff D.P.M. Ordering Physician: Tawana Hoff D.P.M. Date of Service: 09/09/24 Procedure(s): CT foot LT wo con Accession Number(s): [id number] cc: ANGEL LUIS LAMAR [place] [address] Patient Name: TALIA RUTHERFORD MRN: [id number] date: 1970 Sex: F Assigned Patient Location: CT Current Patient Location: CT Accession/Order Number: [id number] Exam Date: 09/09/2024 15:56 Report Date: 09/09/2024 [...] M.D. Signed By: 09/09/241741 DD/ 38 TD/TT: Finish Rolls Operator: XR foot LT min 3V (Not yet r eviewed by provider) Interpretation: Performing Lab: Notes/Report: Source Facility: [place] [address] XRay Report Signed Patient: TALIA RUTHERFORD MR#: [id number] : 1970 Acct:[id number] Age/Sex: 54 / F ADM Date: 09/04/24 Loc: EC Attending Dr: Tawana Hoff D.P.M. Ordering Physician: Tawana Hoff D.P.M. Date of Service: 09/04/24 Procedure(s): XR foot LT min 3V Accession Number(s): [id number] cc: NASH LAMAR Peter D.P.M. [facility] [place] [address] Patient Name: TALIA RUTHERFORD MRN: [id number] date: 1970 Sex: F Assigned Patient Location: Current Patient Location: Accession/Order Number: [id number] Exam Date: 09/04/2024 15:53 Report Date: 09/05/2024 [...] Signed By: 09/05/24 1019 DD/ 1016 TD/TT: Finish Rolls Operator: Reason For Referral No Information Medications Medication SIG (Take, Route, Frequency, Duration) Notes Start Date End Date Status Abilify ActiveTolterodine Tartrate ER 4 MG1 capsule Orally Once a dayActiveAmbienActive CeleXAActiveARIPiprazole 10 MG1 tablet Orally Once a dayActiveDetrolActive Citalopram Hydrobromide 40 MG0.5 tablet Orally Once a dayActiveLansoprazole 30 MG1 tablet Orally Once a dayActiveGabapentinActivePrevacidActiveMeloxicam 15 MG1 tablet Orally Once a day; Duration: 30 days5Active Social History Tobacco Use: Social History Observation Description Date Details (start date - stop date) Current Smoker NA - NA Tobacco Use/Smoking Question Answer Notes Patient is a current smoker How often do you smoke cigarettes?every dayHow many cigarettes a day do you smoke?11-20 Problems Problem Type SNOMED Code ICD Code Onset Dates Problem Status W/U Status Risk Notes Problem Localized, primary o steoarthritis of the ankle and/or foot (347374503) Primary osteoarthritis, left ankle and foot (M19.072) ActiveconfirmedProblemGastroesophageal reflux disease (323346495)GERD (gastroesophageal reflux disease) (K21.9)ActiveconfirmedProblemPain in left foot (490935784788018)Left foot pain (M79.672)ActiveconfirmedProblemAnxiety depression (996306210)Anxiety with depression (F41.8)ActiveconfirmedProblemUlcer of big toe (disorder) (870105537)Chronic ulcer of great toe of left foot with fat layer exposed (L97.522)Activeconfirmed Vital Signs Heart Rate 85 /min 09/18/2024 Respiratory Rate16 /min09/18/20243973Oezmkspx51 %09/18/2024 Encounters Encounter Location Date Provider Diagnosis [facility] (POD[facility]AT[facility]) [address] [place], [place] [address] [address] 09/04/2024 Tawana Hoff Pain due to internal orthopedic prosthetic devices, implants and grafts, initial encounter T84.84XA ; Primary osteoarthritis, left ankle and foot M19.072 and Left foot pain M79.672 [facility] (PODIATRY) [address] [place] [address] [place] [address] 09/18/2024 Tawana Hoff 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.0 ; Primary osteoarthritis, left ankle and foot M19.072 and Pain due to internal orthopedic prosthetic devices, implants and grafts, initial encounter T84.84XA [facility] (PODIATRY) [address] [place], [place] [address] [address] 09/04/2024 Tawana Hoff Assessments Encounter Date Diagnosis [...] 2 years and it appears to be centrallylocated over the hardware. X-rays do show stable [...] joint arthritis which could be contributing to herpain. She will follow-up after the CT scan is obtained. She was made aware of my upcoming transition to solo private practice and then I may not be able todo her surgery until late spring or early summer. If she would like to have this surgery prior to that time I could provide referral. She will let us know over the phone or at her follow-up appointment 09/04/2024Primary osteoarthritis, left ankle and foot (ICD-10 - M19.072) 09/18/2024Pseudarthrosis after fusion or arthrodesis (ICD-10 - M96.0)Patient presents after CT scan relating that she [...] office and was given the new office number.09/18/2024Primary osteoarthritis, left ankle and foot (ICD-10 - M19.072)09/18/2024Pain due to internal orthopedic prosthetic devices, implants and grafts, initial encounter (ICD-10 - T84.84XA)09/04/2024 Left foot pain (ICD-10 - M79.672) Plan [...] Coverage Start Date Coverage End Date RANDI MARTHA COURTNEY [address] [place] [address] [id number] Talia Rutherford Self - patient is the insured Medical (General) History Medical History History ICD Code GERD (gastroesophageal reflux disease) K 21.9 Anxiety F41.9 Arthritis M19.90 Nicotine dependence F17.200 Bipolar depression F31.9 Overactive bladder N32.81 Peripheral arterial disease I73.9 Surgical History Surgery Date(Month/Year) posterior colporrhaphy repair, enterocel e repair 02/15/2021 gastric bypass 08/2019 tubal ligation cholecystectomy
--- OUTSIDE RECORDS SUMMARY | 2025-05-14 15:37 | XMS_ITS | Clinical Summary ---
Author Organization [facility] Address [address] [place] [address] Care Team Providers Care Wound/Ostomy Nurse Name Role Phone Shaikh NITHIN Main Primary Care Provider [phone] Allergies Active AllergyReactionsCriticalityNoted YqbaYshjnstlXktrcdnlhpp47/19/2023 Medications MedicationSigDispense QuantityRefillsLast FilledStart DateEnd DateStatus citalopram (CeleXA) 40 mg tablet Take 40 mg by mouth in the morning.Active traZODone (Desyrel) 50 mg tablet Take 50 mg by mouth if needed each day.01/09/2023ctive lansoprazole (Prevacid) [address] capsule Take 30 mg by mouth in the morning.Active cholecalciferol (Vitamin D-3) 25 MCG (1000 UT) capsule Take 1 capsule every day by oral route.Active ARIPiprazole (Abilify) 5 mg tablet Take 10 mg by mouth in the morning.Active tolterodine LA (Detrol LA) 4 mg 24 hr capsule Take 4 mg by mouth in the morning.01/03/2023ctive Active Problems No known active problems Family History Medical HistoryRelationNameCommentsDiabetesFatherHeart failureFatherHypertension FatherBrain AneurysmMotherDiabetesMotherDiabetesSisterRelationNameStatusComments FatherMotherSister Social History Tobacco UseTypesPacks/DayYears UsedDateSmoking Tobacco: Every DayCigarettes Smokeless Tobacco: Never Tobacco Cessation:Ready to Q uit: Not Asked; Counseling Given: Not Answered [place] Safety & EnvironmentAnswerDate RecordedFear of Current or Ex-PartnerNot on file09/14/2023Emotionally AbusedNot on file09/14/2023hysically AbusedNot on file09/14/2023Sexually AbusedNot on 09/14/2023hysically or Sexually Abused Not on 09/14/2023CommentsUnknownSex and Gender InformationValueDate RecordedSex Assigned at BirthNot on fileLegal NjrDxuuwf92/29/2022 10:25 PM EDT Gender IdentityNot on fileSexual OrientationNot on file Last Filed Vital Signs Vital SignReadingTime TakenCommentsBlood Xxlarfgs75/6109 3:16 PM EDT Bvxfa4050 3:16 PM EDTTemperature--Respiratory Rate--Oxygen Ycmvyxninq14% 04/07/2023 3:16 PM EDTInhaled Oxygen Concentration--Xdvllo961 kg (224 lb) 04/07/2023 3:16 PM WMKKxxkmc367.1 cm (5' 5 )04/07/2023 3:16 PM EDTBody Mass Index37.28004/07/2023 3:16 PM EDT Plan of Treatment Health MaintenanceDue DateLast DoneCommentsCT Opudvdjinrsg1971Colonoscopy 1971Colorectal Cancer Cgapxjijv1971FIT-DNA1971FIT1970 FOBT1970 3477Twgjgamuqpazo1971Depression Djuxiphtf76/13/1983Hepatitis B Vaccines (1 of 3 - 19+ 3-dose series)1990Pneumococcal Vaccine: Pediatrics (0 to 5 Years) and At-Risk Patients (6 to 64 Years) (1 of 2 - PCV)1990Pap Smear1992Adult Gzhnomx6304/05/1993Cervical Cancer Zalcmayny98/13/2001 HPV/Rgnyok7404/05/20010001Tbxiupoeq34/13/2011Zoster Vaccines (1 of 2)1COVID- 19 Vaccine (1 - 2024-26 season)2025Influenza Vaccine (#1)2025HIB VaccinesAged OutNo longer eligible based on patient's age to complete this topic HPV VaccinesAged OutNo longer eligible based on patient's age to complete this topicIPV VaccinesAged OutNo longer eligible based on patient's age to complete this topicMeningococcal B VaccineAged OutNo longer eligible based on patient's age to complete this topicMeningococcal VaccineAged OutNo longer eligible based on patient's age to complete this topicRotavirus VaccinesAged OutNo longer eligible based on patient's age to complete this topic Insurance Care Teams Team MemberRelationshipSpecialtyStart DateEnd Date Shaikh Main MD PCP - GeneralFamily Medicine04/07/23
--- OUTSIDE RECORDS SUMMARY | 2025-05-14 15:37 | XMS_ITS | Clinical Summary ---
Author Organization [facility] [facility] [facility] Address [id number] 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 Name Role Phone DerrickPascale argueta Bang FLOOR LAYER TILE-FILLER WIPER Primary Care Provider Allergies Active AllergyReactionsCriticalityNoted WfxcGibrawqcUbuboglfhgjStssm56/19/2023 Medications MedicationSigDispense QuantityRefillsLast FilledStart DateEnd DateStatus meloxicam (MOBIC) 15 mg tablet Take 1 tablet (15 mg total) by mouth in the morning.5Active cyclobenzaprine (FLEXERIL) 10 mg tablet Take 1 tablet (10 mg total) by mouth 3 (three) times a day.5Active fexofenadine (HUNG) 180 mg tablet Take 1 tablet (180 mg total) by mouth in the morning.5Active fluticasone propionate (FLONASE) 50 mcg/actuation nasal spray Administer 2 sprays into each nostril in the morning.5Active gabapentin (NEURONTIN) 300 mg capsule Take 1 capsule (300 mg total) by mouth 3 (three) times a day.5Active lansoprazole (PREVACID) 30 mg capsule Take 1 capsule (30 mg total) by mouth every morning before breakfast.Active tolterodine LA (DETROL LA) 4 mg 24 hr capsule Take 1 capsule (4 mg total) by mouth in the morning.5Active zolpidem (AMBIEN) 10 mg tablet Take 1 tablet (10 mg total) by mouth daily as needed.5Active estradioL (ESTRACE) 0.01 % (0.1 mg/gram) vaginal cream Indications:Cystocele with second degree uterine prolapse,History of reconstructive repair of rectocele,Urge urinary incontinenceApply pea sized amount ( 1.5 g) to vaginal introitus nightly for 4 weeks then 1-2 times per week thereafte 42.5 g 5Active cariprazine (VRAYLAR) 1.5 mg capsule Take 1 capsule (1.5 mg total) by mouth in the morning.Active cyanocobalamin (vitamin B-12) 1000 MCG tablet Take 1 tablet (1,000 mcg total) by mouth in the morning.Active DULoxetine (CYMBALTA) 30 mg capsule Take 1 capsule (30 mg total) by mouth in the morning.Active DULoxetine (CYMBALTA) 60 mg capsule Take 1 capsule (60 mg total) by mouth in the morning.Active mirabegron (MYRBETRIQ) 50 mg tablet extended release 24 hr Indications:Cystocele with second degree uterine prolapse,History of reconstructive repair of rectocele,Urge urinary incontinenceTake 1 tablet (50 mg total) by mouth in the morning. 30 tablet 5Active Active Problems No known active problems Encounters DateTypeDepartmentCare HxhhJmrfcfdnrha83/10/2025Telephone [facility] [address] [place] [address] Areil Gudino CMA 04/02/2025 3:00 PM EDTOffice Visit [facility] [address] [place] [address] Tania Asif MD Cystocele with second degree uterine prolapse (Primary Dx); History of reconstructive repair of rectocele; Urge urinary dngulsvqdtgm03/10/4322Scveyo90/04/2025bstract [facility] [address] [place] [address] Tania Asif MD from Last 3 Months Family History Medical HistoryRelationNameCommentsDiabetesFatherHeart attackFatherHypertension FatherStrokeFatherBreast cancerMaternal AuntDiabetesMaternal GrandfatherBreast cancerMaternal GrandmotherDiabetesMotherThyroid cancerPaternal GrandmotherColon cancerNeg HxOvarian cancerNeg HxUterine cancerNeg HxRelationNameStatusComments Vmsrvfzhi1XvwsgGizfltBshvsearNqgzbrwu AuntAliveMaternal GrandfatherDeceased Maternal GrandmotherDeceasedMotherDeceasedPaternal GrandfatherDeceasedPaternal RlmmulndmydOgpdhtbnSzijmfm4TxptuTuqDpdsf Social History Tobacco UseTypesPacks/DayYears UsedDateSmoking Tobacco: Every JsnOifmezzbjc926 Smokeless Tobacco: Never Tobacco Cessation:Ready to Q uit: Not Asked; Counseling Given: Not Answered Alcohol UseStandard Drinks/WeekCommentsYes0 (1 standard drink = 0.6 oz pure alcohol)ChildcareAnswerDate RmbsflsiEqxdypjeqZuhxifv51/12/2019EmploymentAnswer Date ByncceuwVfdzrtnzybTndginf77/12/2019Hunger ScreeningAnswerDate Recorded Within the past 12 months we worried whether our food would run out before we got money to buy more.Never True04/02/2025Within the past 12 months the food we bought just didn't last and we didn't have money to get more.Never True 04/02/2025Purpose - LifeAnswerDate RecordedPurpose and direction in lifeUnknown 1CommentsNoSex and Gender InformationValueDate RecordedSex Assigned at BirthNot on fileLegal OmgYcqmiy35/06/2015 12:10 PM EDTGender IdentityNot on fileSexual OrientationNot on file Last Filed Vital Signs Vital SignReadingTime TakenCommentsBlood Qisjbwgp57/6409 2:57 PM EDT Sjgcl872204/02/2025 2:57 PM EDTTemperature--Respiratory Rate--Oxygen Saturation-- Inhaled Oxygen Concentration--Wsxzey39.1 kg (176 lb 9.6 oz)04/02/2025 2:57 PM OHDLhlxra399.4 cm (5' 5.5 )04/02/2025 2:57 PM EDTBody Mass Index28.9404/02/2025 2:57 PM EDT Plan of Treatment DateTypeDepartmentCare Team (Latest Contact Info)Dlbgudwrdza84/05/2025 2:30 PM ESTProcedure visit [facility] [address] [facility] [address] Tania Asif MD [address] [place] [address] Health MaintenanceDue DateLast DoneCommentsTobacco Tnmdrrdwry1971 Depression Ecwbjlagc05/13/1983Adult BMI Follow Up Plan1989DTaP,Tdap and Td Vaccines (1 - Tdap)1990Pap Smear1992Zoster (Shingles) Vaccine (1 of 2)2021Influenza Emgxkaf7603/24/2025dult BMI Oaqciwsfb89 Tobacco Buvxwzxmo37 Medical Devices Not on file Insurance Care Teams Team MemberRelationshipSpecialtyStart DateEnd Date Pascale Arana, FLOOR LAYER TILE-FILLER WIPER [address] [place] [address] PCP - GeneralNurse Practitioner04/02/25
--- OUTSIDE RECORDS SUMMARY | 2025-05-14 15:38 | XMS_ITS | Clinical Summary ---
Author Organization [facility] Address [address] [place] [place] [address] Care Team Providers Care Rn Clinical Trials Name Role Phone Molina De Anda MD Primary Care Provider [phone] Valerie Groves SPINNING OPERATOR Unavailable [phone] Karime Dias PMHNP-BC Unavailable + [phone] Rohan Burns [facility] Unavailable Unavailable Allergies Active AllergyReactionsCriticalityNoted KwiuUljjcyogGyvzygxgisaWjgkl66/12/2023 Medications MedicationSigDispense QuantityRefillsLast FilledStart DateEnd DateStatus meloxicam (Mobic) 15 MG tablet Take 15 mg by mouth Daily as needed for mild pain5Active fexofenadine (Layla Allergy) 180 MG tablet Indications:Seasonal allergiesTake 1 tablet (180 mg) by mouth Daily 30 tablet 5Active fluticasone (Flonase) 50 MCG/ACT nasal spray Indications:Environmental and seasonal allergiesAdminister 2 sprays into each nostril Daily Shake gently. Before first use, prime pump. After use, clean tip and replace cap. 16 g 5Active gabapentin (Neurontin) 300 MG capsule Indications:FibromyalgiaTake 1 capsule (300 mg) by mouth in the morning and 1 capsule (300 mg) in the evening and 1 capsule(300 mg) before bedtime. 90 capsule 5Active albuterol HFA 90 mcg/act inhaler Indications:URTI (acute upper respiratory infection),Non-recurrent acute suppurative otitis media of both ears without spontaneous rupture of tympanic me mbranesInhale 2 puffs every 6 (six) hours if needed for wheezing 8 g 5Active zolpidem (Ambien) 10 MG tablet Indications:Psychophysiological insomniaTake 1 tablet (10 mg) by mouth as needed at bedtime for sleep 30 tablet 5Active cyanocobalamin (Vitamin B-12) 1000 MCG tablet Take 1,000 mcg by mouth in the morning.Active cyclobenzaprine (Flexeril) 10 MG tablet Take 10 mg by mouth 3 (three) times a day as neededActive estradiol (Estrace) 0.1 MG/GM vaginal cream Insert 1.5 g into the vagina 2 (two) times a week5Active tolterodine LA (Detrol LA) 4 MG 24 hr capsule Take 4 mg by mouth Daily5Active lansoprazole (Prevacid) [address] capsule Indications:Gastroesophageal reflux disease, unspecified whether esophagitis presentTake 1 capsule (30 mg) by mouth in the morning. Take before meals. 90 capsule 5Active Cariprazine HCl (Vraylar) 3 MG capsule Indications:JESSIKA (generalized anxiety disorder),Severe episode of recurrent major depressive disorder, without psychotic features (HCC),PTSD (post-traumatic stress disorder)Take 3 mg by mouth Daily for 14 days 14 capsule 5Active Cariprazine HCl (Vraylar) 4.5 MG capsule Indications:JESSIKA (generalized anxiety disorder),Severe episode of recurrent major depressive disorder, without psychotic features (HCC),PTSD (post-traumatic stress disorder)Take 4.5 mg by mouth Daily After taking 3 mg dose daily for 14 days, begin taking 4.5 mg daily. 30 capsule 5Active DULoxetine (Cymbalta) [address] capsule Indications:FibromyalgiaTake 1 capsule (60 mg) by mouth Daily in the Morning 30 capsule 5Active DULoxetine (Cymbalta) [address] capsule Indications:FibromyalgiaTake 1 capsule (30 mg) by mouth at bedtime 30 capsule 5Active Active Problems ProblemNoted DateDiagnosed DateGAD (generalized anxiety disorder)03/06/2025 Spinal stenosis, lumbosacral jsccwd4102/05/2025Spinal stenosis, cervical region 02/05/2025Sleep apnea01/22/2025Severe episode of recurrent major depressive disorder, without psychotic kusvlfiz87/02/2025 Assessment & Plan (02/25/2025 12:45 PM EDT): Was referred to psych, they are currently managing meds Is off on FMLA for this PTSD (post-traumatic stress disorder)01/22/2025 Assessment & Plan (02/25/2025 7:23 AM EDT): Dx as per psych Abnormal Papanicolaou smear of cervix with positive human papilloma virus (HPV) test11/27/2024 Overview (11/27/2024): Pap smear 11/15 Hot flashes due to ztkzfopqa36/30/2025 Assessment & Plan (11/20/2024 4:37 PM EDT): Discussed insurance concern over dose of celexa, she takes for hot flashes she is willing to trial a decrease in dose to 20mg and will cut her current pill in half BMI 32.0-32.9,adult10/23/2024Overactive bladder due to prolapse of female genital organ10/02/2024Headache, menstrual migraine, with status migrainosus 08/12/2024Malaise and fwvxzzu1008/12/2024Detrusor muscle wlhfrmvxuw33/20/2025lass 1 obesity due to excess calories without serious comorbidity in adult08/12/2024 Assessment & Plan (02/25/2025 7:24 AM EDT): [...] options for weight loss. Environmental and seasonal uixtjwwns77/20/2025 Assessment & Plan (08/12/2024 4:42 PM EST): Cont layla, add flonase History of GI bleed03/06/2024LUQ abdominal pain03/06/20248325Opgzrgawofte76/07/2024 Assessment & Plan (04/10/2024 6:44 PM EDT): [...] AFTER BM. Referral sent to GI Nicotine rzmcjforxd36/22/2024 Assessment & Plan (02/25/2025 7:23 AM EDT): The patient has been advised of the risks of continued smoking: stroke, KS, all forms of cancer, lung disease, and . Options for quitting smoking include: cold turkey, hypnosis, acupuncture, nicotine replacement meds(gum, lozenges, and patches), Buproprion, and Varenicline. At this time pt is encouraged to evaluate their goals for wanting to quit smoking, and reach out toprovider when ready to start this process Assessment & Plan (01/06/2025 7:38 AM EDT): The patient has been advised of the risks of continued smoking: stroke, KS, all forms of cancer, lung disease, and . Options for quitting smoking include: cold turkey, hypnosis, acupuncture, nicotine replacement meds(gum, lozenges, and patches), Buproprion, and Varenicline. At this time pt is encouraged to evaluate their goals for wanting to quit smoking, and reach out toprovider when ready to start this process Assessment & Plan (10/23/2024 7:40 AM EDT): The patient has been advised of the risks of continued smoking: stroke, KS, all forms of cancer, lung disease, and . Options for quitting smoking include: cold turkey, hypnosis, acupuncture, nicotine replacement meds(gum, lozenges, and patches), Buproprion, and Varenicline. At this time pt is encouraged to evaluate their goals for wanting to quit smoking, and reach out toprovider when ready to start this process Assessment & Plan (10/02/2024 7:49 AM EDT): The patient has been advised of the risks of continued smoking: stroke, KS, all forms of cancer, lung disease, and . Options for quitting smoking include: cold turkey, hypnosis, acupuncture, nicotine replacement meds(gum, lozenges, and patches), Buproprion, and Varenicline. At this time pt is encouraged to evaluate their goals for wanting to quit smoking, and reach out toprovider when ready to start this process Assessment & Plan (08/12/2024 4:25 PM EST): The patient has been advised of the risks of continued smoking: stroke, KS, all forms of cancer, lung disease, and . Options for quitting smoking include: cold turkey, hypnosis, acupuncture, nicotine replacement meds(gum, lozenges, and patches), Buproprion, and Varenicline. At this time pt is encouraged to evaluate their goals for wanting to quit smoking, and reach out toprovider when ready to start this process Antibiotic-induced yeast fllndldvo33/22/2024 Assessment & Plan (08/15/2023 12:15 AM EST): Will order Fluconazola in case she develops abx induced yeast infection History of gastric acshap9908/04/2023 Assessment & Plan (11/13/2023 5:18 PM EDT): On B12 injection and required IV iron. Monitor Iron deficiency gzrnrk0208/04/2023 Assessment & Plan (02/25/2025 12:45 PM EDT): [...] iron - unable to tolerate, reports nausea, abdominalpain and cramping. Recent Iron profile - slight [...] iron - unable to tolerate, reports nausea, abdominalpain and cramping. Recent Iron profile - slight [...] iron - unable to tolerate, reports nausea, abdominalpain and cramping. Recent Iron profile - slight [...] Iron due to prior gastric bypass surgery. Ylvuwdwuotme61/12/2023 Assessment & Plan (01/06/2025 6:10 PM EDT): [...] work for autoimmune diseasel GERD (gastroesophageal reflux disease)07/04/2023 Assessment & Plan (01/06/2025 7:37 AM EDT): [...] Elevate HOB if possible Current med: lansoprazole Wqrvcfdf15/12/2023 Assessment & Plan (02/25/2025 12:44 PM EDT): [...] mg. Follow up in 6 weeks. B12 imxxddkoaq26/12/2023 Assessment & Plan (10/23/2024 6:11 PM EDT): [...] prior gastric bypass. Plantar fasciitis of right foot06/30/20238537Jqgzsddsb28/08/2023Uterine prolapse 06/30/2023 Resolved Problems ProblemNoted DateDiagnosed DateResolved DateUTI (urinary tract infection), hldoardnydpok24/24/202504/Well woman exam with routine gynecological exam / Assessment & Plan (11/20/2024 4:32 PM EDT): Thin prep: fu as per pap indications Monthly BSE Weight bearing exercise as well Encounter for screening mammogram for malignant neoplasm of qavozg3210/02/2024 01/22/2025MI 34.0-34.9,adult/08/2024Female genital symptoms /Problem related to unspecified psychosocial circumstances /3010Phupcvq05/20/202503/06/20258441Fgtqml03 Assessment & Plan (01/06/2025 6:09 PM EDT): See bipolar entry Qbcrynqgwxck30/20/202504/ute non-recurrent maxillary sinusitis Assessment & Plan (08/12/2024 4:41 PM EST): Zithromax , finish atb Fluids, rest Fu if not better, add steroid nasal spray Cutaneous abscess of abdominal wall/ Overview (08/12/2024): [facility] [id number] EXP: 10/22/2026 LOT # [id number] Assessment & Plan (08/12/2024 5:50 PM EST): Warm compress, recommend since she gets repeated abscess we check a culture and treat appropriatelybased on the culture Culture obtained BMI 33.0-33.9,adult/08/2024 Assessment & Plan (09/04/2024 4:25 PM EST): [...] daily if no contraindications Screening for diabetes uiwbrxxu27 Assessment & Plan (01/22/2024 5:28 PM EDT): Screen for T2 DM Encounter for screening mammogram for breast qurkxu39 Assessment & Plan (01/22/2024 5:29 PM EDT): Ordered mammogram. Seizure-like vpxhydzy31 Assessment & Plan (01/22/2024 5:28 PM EDT): New, 4 episodes in past 10 days. No aggravating factors Sudden onset feeling of restlessness, diaphoresis along with UE tremors, associated confusion that lasts after that event subsides/concludes. Stop Wellbutrin as associated with increased risk of seizure. Refer to Neurology. Fluid level behind tympanic membrane of both ears Assessment & Plan (01/22/2024 5:29 PM EDT): Recent URTI , residual fluid behind TM b/l Non-recurrent acute suppurative otitis media of both ears without spontaneous rupture of tympanic xuhybfzyg22Overactive agkcgsk5111/13/2023 01/06/2025utaneous abscess of groin Assessment & Plan (08/15/2023 12:20 AM EST): Small pea sized skin abscess in pubic region - on cefdinir for URTI. Should cover unless MRSA Patient asked to follow up if no improvement or worsening pain, swelling or fever. URTI (acute upper respiratory infection) Assessment & Plan (08/15/2023 12:15 AM EST): Cough, rhinorrhea, fatigue, malaise x 2-3 weeks. No fever. No chills. No SOB but ear feels full. Exam showed TM is opaque b/l, thick, cloudy colored fluid, hyperemic oropharyngeal mucosa. Will call in oral Cefdinir, alongwith PO prednisone and benzonatate. Bipolar disorder with severe phdhodgnqk54/12/202307/08/2024 Assessment & Plan (01/06/2025 6:09 PM EDT): [...] was stable on her regimen. Except for weightgain, she was not experiencing any significant adverse/side effects. She is currently on Celexa, Cymbalta and Wellbutrin. Her mood is stable and she is doing well on this regimen. Assessment & Plan (08/15/2023 12:18 AM EST): Patient was previously on Celexa and Abilify. Her mood was stable on her regimen. Except for weightgain, she was not experiencing any significant adverse/side [...] anhedonia. She is doing better since she startedusing Celexa at 20 mg. Her mood is [...] was stable on her regimen. Except for weightgain, she was not experiencing any significant adverse/side [...] or concerns related to new medications. Breast wjhunuhmc23/06/2025 Assessment & Plan (07/04/2023 3:48 PM EST): Ordered mammogram Menorrhagia with regular cycle/ Encounters DateTypeDepartmentCare HedvGjxbmmswqiz37/17/2025 4:30 PM EDTSocial Work [facility] [address] [place] [address] [address] [place] [address] Rohan Burns LPC JESSIKA (generalized anxiety disorder) ; Severe episode of recurrent major depressive disorder, without psychotic features (HCC); PTSD (post-traumatic stress disorder)04/09/2025amb flowsheet [facility] [address] [place] [address] Rohan Burns LPC 04/09/20252730Hucawc07/11/2025 9:00 AM EDTTelemedicine [facility] [address] [place] [address] Karime Dias [facility] JESSIKA (generalized anxiety disorder) ; Severe episode of recurrent major depressive disorder, without psychotic features (HCC); PTSD (post-traumatic stress disorder) ; Insomnia, unspecified type; Valornmigkxr75/11/7725Xwpyxo36/06/2025Refill [facility] [address] [facility] [address] [place] [address] Karime Dias [facility]-BC Severe episode of recurrent major depressive disorder, without psychotic features (HCC)03/25/2025 2:30 PM EDTSocial Work [facility] [address] [facility] [address] [place] [address] Rohan Burns LPC JESSIKA (generalized anxiety disorder) ; Severe episode of recurrent major depressive disorder, without psychotic features (HCC); PTSD (post-traumatic stress disorder)03/25/2025amb flowsheet [facility] [address] [facility] [address] [place] [address] Rohan Burns LPC 03/25/20257612Xnikch46/26/8962Gegcws99/18/2025Results Follow-Up [facility] [place] [facility] [address] [place] [address] Natacha Lyn MA ALL CBC WITH AUTO DIFF, HMHP IRON03/06/2025 3:00 PM EDTSocial Work [facility] [address] [facility] [address] [place] [address] Rohan Burns LPC JESSIKA (generalized anxiety disorder) ; Severe episode of recurrent major depressive disorder, without psychotic features (HCC); PTSD (post-traumatic stress disorder)03/06/2025amboo flowsheet [facility] [address] [facility] [address] [place] [address] Rohan Burns LPC 03/06/20251112Zjoyyk81/13/2025linisync Result Encounter [facility] External Department Unsolicited Pascale Arana NP 02/26/2025linisync Result Encounter [facility] External Department Unsolicited Provider, Generic External Data 02/26/2025Refill [facility] [address] [place] [address] Pascale Arana NP Gastroesophageal reflux disease, unspecified whether esophagitis present (Primary Dx)02/26/2025Telephone [facility] [address] [place] [address] Pascale Arana NP 02/25/2025 11:30 AM EDTOffice Visit [facility] [address] [place] [address] Pascale Arana, MARY JO Severe episode of recurrent major depressive disorder, without psychotic features (HCC) (Primary Dx); Cigarette nicotine dependence without complication; PTSD (post-traumatic stress disorder) ; Class 1 obesity due to excess calories without serious comorbidity with body mass index (BMI) of 32.0 to 32.9 in adult; Iron deficiency anemia secondary to inadequate dietary iron intake; Primary /05/2025bstract [facility] [address] [place] [address] Pascale Arana NP 02/24/2025 3:00 PM EDTOffice Visit [facility] [address] [place] [address] Karime Dias, [facility] JESSIKA (generalized anxiety disorder) ; Severe episode of recurrent major depressive disorder, without psychotic features (HCC); PTSD (post-traumatic stress disorder) ; Insomnia, unspecified type; Sleep apnea, unspecified type02/24/2025amboo flowsheet [facility] [address] [place] [address] Karime Dias [facility] 02/24/20252035Apvfdh02/01/2025bstract [facility] [address] [place] [address] Pascale Arana NP 02/20/2025Refill [facility] [address] [place] [address] Pascale Arana NP Psychophysiological kgsmoepd59/30/2025linisync Result Encounter [facility] External Department Unsolicited Provider, Generic External Data 02/18/2025bstract [facility] [address] [place] [address] Pascale Arana NP 02/17/2025Telephone [facility] [address] [place] [address] Pascale Arana NP Error (VOID this visit)02/11/2025Refill [facility] [address] [place] [address] Pascale Arana NP UTI (urinary tract infection), uncomplicated; Class 1 obesity due to excess calories without serious comorbidity in adult, unspecified BMI; BMI 32.0-32.9,adultfrom Last 3 Months Family History Medical HistoryRelationNameCommentsDiabetesFatherCharlesHeart diseaseFather CharlesHypertensionFatherCharlesStrokeFatherCharlesBreast cancerMaternal GrandmotherThyroid cancerMaternal GrandmotherDepressionMotherConnieDiabetes MotherConnieBreast cancerMother's SisterRelationNameStatusCommentsDaughter 1 AliveDaughter 2AliveDaughter 3AliveFatherCharlesAliveMaternal Grandmother DeceasedMotherConnieAliveMother's SisterAliveSonAlive Social History Tobacco UseTypesPacks/DayYears UsedDateSmoking Tobacco: Every ErrTqjzdsykkw742.8 Started: 1985Passive Smoke Exposure: PastSmokeless Tobacco: Never Tobacco Cessation:Ready to Q uit: Not Asked; Counseling Given: Not Answered Comments:Thinking about quitting Alcohol UseStandard Drinks/WeekCommentsNot Currently0 (1 standard drink = 0.6 oz pure alcohol)caffeine: 3-4 cups per dayHumiliation, Afraid, Rape, and Kick questionnaireAnswerDate RecordedWithin the last year, have you been afraid of your partner or ex-partner?No08/07/2023Within the last year, have you been humiliated or emotionally abused in other ways by your partner or ex-partner?No 08/07/2023Within the last year, have you been kicked, hit, slapped, or otherwise physically hurt by your partner or ex-partner?No08/07/2023Within the last year, have you been raped or forced to have any kind of sexual activity by your part ner or ex-partner?No08/07/2023Social Connection and Isolation PanelAnswerDate RecordedIn a typical week, how many times do you talk on the phone with family, friends, or neighbors?More than three times a week08/07/2023How often do you get together with friends or relatives?Three times a week08/07/2023How often do you attend zoroastrianism or restoration services?Never08/07/2023o you belong to any clubs or organizations such as zoroastrianism groups, unions, fraternal or athletic groups, or school groups?No08/07/2023How often do you attend meetings of the clubs or organizations you belong to?Patient allvmmar96/15/2024Are you , , , , never , or living with a partner?Xxtulvb6708/07/2023 AUDIT-CAnswerDate RecordedQ1: How often do you have a drink containing alcohol? Never08/07/2023Q2: How many drinks containing alcohol do you have on a typical day when you are drinking?Patient does not drink08/07/2023Q3: How often do you have six or more drinks on one occasion?Never08/07/2023Overall Financial Resource Strain (CARDIA)AnswerDate RecordedHow hard is it for you to pay for the very basics like food, housing, medical care, and heating?Not hard at all 08/07/2023HQ-2AnswerDate RecordedPatient Health Questionnaire-2 Score5 01/22/2025[facility] [place] [facility] - Occupational Stress QuestionnaireAnswerDate RecordedDo you feel stress - tense, restless, nervous, or anxious, or unable to sleep at night because yourmind is troubled all the time - these days?To some ezanmy6908/07/2023Exercise Vital SignAnswerDate Recorded On average, how many days per week do you engage in moderate to strenuous exercise (like a brisk walk)?0 days08/07/2023On average, how many minutes do you engage in exercise at this level?0 min08/07/2023Hunger Vital SignAnswerDate RecordedWithin the past 12 months, you worried that your food would run out before you got the money to buymore.Never true08/07/2023Within the past 12 months, the food you bought just didn't last and you didn't have money to get more.Never true08/07/2023RAPARE - TransportationAnswerDate RecordedIn the past 12 months, has lack of transportation kept you from medical appointments or from getting medications?No08/07/2023In the past 12 months, has lack of transportation kept you from meetings, work, or from getting things needed for daily living?No08/07/2023Housing Stability Vital SignAnswerDate RecordedIn the last 12 months, was there a time when you were not able to pay the mortgage or rent on time?No08/07/2023In the last 12 months, how many places have you lived?1 01/15/2024In the last 12 months, was there a time when you did not have a steady place to sleep or slept in [facility] (including now)?No4Comments UnknownSex and Gender InformationValueDate RecordedSex Assigned at BirthNot on fileLegal NelCdmisd43/15/2023 7:47 PM EDTGender IdentityNot on fileSexual OrientationNot on file Last Filed Vital Signs Vital SignReadingTime TakenCommentsBlood Copeldfu777/6408 11:31 AM EDT Pqfmi689302/25/2025 11:31 AM LFSOfcsjbrhlfo67.6 ??C (97.8 ??F)02/25/2025 11:31 AM EDTRespiratory Xogi034101/06/2025 4:32 PM EDTOxygen Rkywyndjyw07%02/25/2025 11:31 AM EDTInhaled Oxygen Concentration--Midxtx39.4 kg (172 lb 12.8 oz)02/25/2025 11:31 AM RHXEippoc805.1 cm (5' 5 )10/02/2024 4:51 PM EDTBody Mass Index28.76 10/02/2024 4:51 PM EDT Plan of Treatment DateTypeDepartmentCare Team (Latest Contact Info)Yvsxaescmps79/29/2025 4:30 PM EDTSocial Work [facility] [address] [facility] [address] [place] [address] Rohan Burns LPC 06/02/2025 3:00 PM ESTOffice Visit [facility] [address] [place] [address] Macarena Chang, CLIENT SERVICE SUPERVISOR-PRE [employer] TEACHER [address] [place] [address] Goals GoalPatient Goal TypeAssociated ProblemsRecent ProgressPatient-Stated?Author Help patient manage antidepressant medication Care PlanPatient on antidepressant monitoring Shaikh Cornell MD Procedures Procedure NamePriorityDate/TimeAssociated DiagnosisCommentsHMHP IRONRoutine 03/05/2025 5:03 PM EDT ALL CBC WITH AUTO DRHKWmmdvel98/13/2025 5:03 PM EDT SEGMENTAL BLOOD UUKKXAGA10/06/2025 3:34 PM EDT XR FOOT LT MIN 3V02/19/2025 3:03 PM EDT from Last 3 Months Results * HMHP IRON (03/05/2025 5:03 PM EDT)ComponentValueRef RangeTest MethodAnalysis TimePerformed AtPathologist SignatureTB IRON78.050.0 - 170.0 ug/dLTBHSpecimen (Source)Anatomical Location / LateralityCollection Method / VolumeCollection TimeReceived Time03/05/2025 5:03 PM EDT03/05/2025 5:06 PM EDT Narrative CLINISYNC - 03/05/2025 5:54 PM EDT Authorizing ProviderResult TypeResult StatusLisa [facility] NPCLINISYNCFinal ResultPerforming OrganizationAddressCity/State/ZIP CodePhone Number [facility]YATRI[facility] * (ABNORMAL) ALL CBC WITH AUTO DIFF (03/05/2025 5:03 PM EDT)ComponentValueRef RangeTest MethodAnalysis TimePerformed AtPathologist SignatureTBH WBC6.64.0 - 11.0 10 3/uLTBHTBH RBC3.79(L)4.20 - 5.40 10 6/uLTBHTBH HGB11.8(L)12.0 - 16.0 g/dLTBHTBH HCT37.236.0 - 48.0 %TBHTBH MCV98.281.0 - 99.0 fLTBHTBH MCH31.126.7 - 34.0 pgTBHTBH MCHC31.729.9 - 35.2 g/dLTBHTBH RDW15.3(H)11.0 - 15.0 %TBHTBH HEH138601 - 450 10 3/uLTBHTBH MPV10.09.5 - 13.5 fLTBHNEUTROPHILS PERCENT AUTO 49.943.0 - 75.0 %TBHLYMPHOCYTES PERCENT AUTO35.220.5 - 60.0 %TBHMONOCYTES PERCENT AUTO5.51.7 - 12.0 %TBHTBH EO %7.9(H)0.9 - 7.0 %TBHBASOPHILS PERCENT AUTO1.20.2 - 2.0 %TBHIMMATURE GRANULOCYTES PCT AUTO0.30.0 - 0.5 %TBH NEUTROPHILS ABSOLUTE AUTO3.31.4 - 6.5 10 3/uLTBHLYMPHOCYTES ABSOLUTE AUTO2.3 1.2 - 3.8 10 3/uLTBHMONOCYTES ABSOLUTE AUTO0.40.3 - 0.8 10 3/uLTBHTBH EO #0.5 0.0 - 0.7 10 3/uLTBHBASOPHILS ABSOLUTE AUTO0.10.0 - 0.1 10 3/uLTBHIMMATURE GRANULOCYTES ABS AUTO0.020.00 - 0.03 10 3/uLTBHSpecimen (Source)Anatomical Location / LateralityCollection Method / VolumeCollection TimeReceived Time 03/05/2025 5:03 PM EDT03/05/2025 5:06 PM EDT Narrative CLINISYNC - 03/05/2025 5:24 PM EDT Authorizing ProviderResult TypeResult StatusLisa Aichholz NPCLINISYNCFinal ResultPerforming OrganizationAddressCity/State/ZIP CodePhone Number CLINISYNC [facility] * SEGMENTAL BLOOD PRESSURE (02/26/2025 3:34 PM EDT)Anatomical RegionLaterality ModalityRadiographic ImagingSpecimen (Source)Anatomical Location / Laterality Collection Method / VolumeCollection TimeReceived Time02/26/2025 3:34 PM EDT Narrative 02/27/2025 9:07 AM EDT [facility] ?[address] ? [place] [address] ? Cardiology Report ? Signed ? Patient: KRISHTALIA ?MR#: [id number] ?? : 1970 ?Acct:[id number] ?? Age/Sex: 54 / F ?ADM Date: 02/26/25 ?? Loc: CARD ? Attending Dr: Michael Escobedo PA ? Ordering Physician: Michael Escobedo ?? Date of Service: 02/26/25 ?? Procedure(s): CA segmental UE or LE PONCE ?? Accession Number(s): [id number] ? cc: Pascale Arana NP; Michael Escobedo ?[facility] ? Test Date: ?2025-02-26 ?? Pat Name: ? TALIA RUTHERFORD ?Department: ? Room: ? - ?? Gender: ? Female ? Electrical Sign Wirer: ?? Cari Nichole ?? : ?1970 ? Requested By: Michael Escobedo ?? Order Number: [id number] ?Reading : ?? SCOTT ??Bronson PARKINSON ? Interpretive Statements ?? Summary of the findings: ?? Right leg: TEREZA= 1.28; TBI= 0.93. Doppler waveforms demonstrate multiphasic ?? flow at the posterior tibial and biphasic flow at the dorsalis pedis ?? arteries. ?? Left leg: TEREZA= 1.30; TBI= 0.83. Doppler waveforms demonstrate multiphasic ?? flow at the posterior tibial and biphasic flow at the dorsalis pedis ?? arteries. ?? Segmental pressures: Segmental pressures are normal bilaterally. ?? Pulse volume recordings: PVRs at the high thigh, below knee, and ankle levels ?? show normal waveforms. ? Conclusion: ?? Right and left ankle-brachial indices are suggestive of normal overall ?? arterial flow at rest. Toe-brachial indices are not suggestive of PAD. ?? Segmental pressures show no segmental disease. Pulse volume recordings ?? indicate good overall resting arterial flow. Waveform analysis suggests ?? normal bilateral arterial flow. ? Overall normal resting physiologic examination. ? Electronically Signed On 02-27-2025 9:07:26 EDT by SCOTT ??Bronson PARKINSON ? Dictated By: ?SCOTT PARKINSON ? Signed By: ?02/27/25 0907 ?02/27/25 0907 ? DD/ 1534 ? TD/TT: ? Spiral Runner: Procedure Note Radiology, Radiologist, - 02/27/2025 [place] [address] Cardiology Report Signed Patient: TALIA RUTHERFORD DMR#: [id number] : 1970Acct:[id number] Age/Sex: 54 / FADM Date: 02/26/25 Loc: CARD Attending Dr: Michael LAZAR Ordering Physician: Michael Escobedo Date of Service: 02/26/25 Procedure(s): CA segmental UE or LE PONCE Accession Number(s): [id number] cc: Pascale Arana NP; Michael Escobedo [facility] Test Date: 2025-02-26 Pat Name: TALIA RUTHERFORD Department: Room: - Gender: Female Electrical Sign Wirer: Cari Nichole : 1970 Requested By: Michael Escobedo Order Number: [id number] Reading MD: SCOTT PARKINSON M.D. Interpretive Statements [...] By:02/27/25 0907 02/27/25 0907 DD/ 1534 TD/TT: Spiral Runner: Authorizing ProviderResult TypeResult StatusGeneric External Data ProviderIMG XR PROCEDURESFinal Result * XR FOOT LT MIN 3V (02/19/2025 3:03 PM EDT)Anatomical RegionLateralityModality OtherSpecimen (Source)Anatomical Location / LateralityCollection Method / VolumeCollection TimeReceived Time02/19/2025 3:03 PM EDT Narrative 02/19/2025 3:06 PM EDT [facility] ?[address] ? [place] [address] ?XRay Report ? Signed ? Patient: TALIA RUTHERFORD D ?MR#: [id number] ?? : 1970 ?Acct:[id number] ?? Age/Sex: 54 / F ?ADM Date: 02/19/25 ?? Loc: RAD ? Attending Dr: Michael Escobedo PA ? Ordering Physician: Michael Escobedo ?? Date of Service: 02/19/25 ?? Procedure(s): XR foot LT min 3V ?? Accession Number(s): [id number] ? cc: Pascale Arana NP; Michael Escobedo ? [facility] ? [address] ? [place] [address] ? Patient Name: ?? TALIA RUTHERFORD ? MRN: [facility]:[id number] ? date: 1970 ?Sex: F ?? Assigned Patient Location: RAD ?? Current Patient Location: RAD ?? Accession/Order Number: [id number] ?? Exam Date: 02/19/2025 ??10:39 ?Report Date: 02/19/2025 ??15:03 ? At the request of: ?? MICHAEL ??MEET ??PA ? Procedure: ??XR foot LT min 3V ? LEFT FOOT ??- 3 views ? CLINICAL HISTORY: Left foot arthritis ? COMPARISON: Left foot 09/04/2024 ? FINDINGS: ? Mild soft tissue swelling is present. ??Bones are grossly demineralized. ? Hardware fixation is seen involving the second and third tarsometatarsal ?? junctions without evidence of hardware complication. ??Scattered mild ?? degenerative changes with plantar spurring. ??No bony erosions. ? XR/XR foot LT min 3V ?? IMPRESSION: ? MILD SOFT TISSUE SWELLING WITHOUT ACUTE BONY PROCESS OR HARDWARE COMPLICATION. ? MILD SCATTERED DEGENERATIVE CHANGE WITH PLANTAR SPURRING. ? Impression dictated by: Merlin Massey Jr., D.O. ??02/19/2025 3:03 PM ? Dictation Location: [facility]-- ? Electronically authenticated by: [id number] ??Y ?? Date: 02/19/2025 ??15:03 ? Dictated By: ?Merlin Massey M.D. ? Signed By: ?02/19/251505 ? DD/ 1503 ? TD/TT: ? Spiral Runner: Procedure Note Radiology, Radiologist, - 02/19/2025 [place] [address] XRay Report Signed Patient: TALIA RUTHERFORD DMR#: [id number] : 1970Acct:[id number] Age/Sex: 54 / FADM Date: 02/19/25 Loc: KAI Attending Dr: Michael LAZAR Ordering Physician: Michael Escobedo Date of Service: 02/19/25 Procedure(s): XR foot LT min 3V Accession Number(s): [id number] cc: Pascale Arana SPINNING OPERATOR; Michael Escobedo The [place] [address] Patient Name: TALIA RUTHERFORD MRN: [id number] date: 1970 Sex: F Assigned Patient Location: [facility] Current Patient Location: [facility] Accession/Order Number: [id number] Exam Date: 02/19/2025 10:39 Report Date: 02/19/2025 [...] Jr., D.OConsuelo 02/19/2025 3:03 PM Dictation Location: [place] [address] Electronically authenticated by: [id number] Y Date: 5:03 Dictated By: Merlin Massey M.D. Signed By:02/19/25 1506 DD/ 1503 TD/TT: Spiral Runner: Authorizing ProviderResult TypeResult StatusGeneric External Data Provider CLINISYNC IMAGINGFinal Result from Last 3 Months Additional Health Concerns Active ProblemsNoted DateDiagnosed DatePatient on antidepressant monitoring plan 08/03/2023 Insurance Care Teams Team MemberRelationshipSpecialtyStart DateEnd Date Molina De Anda MD PCP - GeneralFamily Medicine02/21/24 Valerie Groves NP Nurse PractitionerFamily Medicine02/21/24 Karime Dias [facility]NP[facility] [address] [facility] [address] [place] [id number] Nurse PractitionerBehavioral Health01/22/25 Rohan Burns LPC Social WorkerBehavioral Health03/06/25
--- OUTSIDE RECORDS SUMMARY | 2025-05-14 15:38 | XMS_ITS | Encounter Summary ---
Author Organization [facility] [employer] Address [id number] [address] [place] [address] Care Team Providers Care Materials Associate Name Role Phone Pascale Arana WAISTBAND SETTER-REGULATOR INSPECTOR Primary Care Provider Encounter Details DateTypeDepartmentCare Team (Latest Contact Info)Tcvwimbhgzd89/10/2025[facility]phone [facility] [address] [facility] [address] [place] [address] Areli Gudino CMA Social History Tobacco UseTypesPacks/DayYears UsedDateSmoking Tobacco: Every NawIiiehfxkmj900 Smokeless Tobacco: NeverAlcohol UseStandard Drinks/WeekCommentsYes0 (1 standard drink = 0.6 oz pure alcohol)ChildcareAnswerDate RecordedChildcareUnknown 01/02/2019EmploymentAnswerDate IooiermxZzewukzqkoBcmyjyp47/12/2019Hunger ScreeningAnswerDate RecordedWithin the past 12 months we worried whether our food would run out before we got money to buy more.Never True04/02/2025Within the past 12 months the food we bought just didn't last and we didn't have money to get more.Never True04/02/2025Purpose - LifeAnswerDate RecordedPurpose and direction in glaxAetxjjp90/11/2021CommentsNoSex and Gender Information ValueDate RecordedSex Assigned at BirthNot on fileLegal XhgRwnktz42/06/2015 12:10 PM EDTGender IdentityNot on fileSexual OrientationNot on filedocumented as of this encounter Miscellaneous Notes * [...] documented in this encounter Plan of Treatment DateTypeDepartmentCare Team (Latest Contact Info)Lpvawcxvutv88/05/2025 2:30 PM ESTProcedure visit [facility] [address] [place] [address] Tania Asif MD [address] [facility] [address] [place] [address] documented as of this encounter Visit Diagnoses Diagnosis Cystocele with second degree uterine prolapse- Primary History of reconstructive repair of rectocele Urge urinary incontinence Urge incontinence documented in this encounter Care Teams Team MemberRelationshipSpecialtyStart DateEnd Date Pascale Arana, WAISTBAND SETTER-REGULATOR INSPECTOR [address] [place] [address] PCP - GeneralNurse Practitioner04/02/25documented as of this encounter
--- NOTE | 2025-05-14 15:44 | PM.CN ---
Consult Note: HPI Data of Consult Patient: known to practice within the last 3 years Consult date: 05/14/25 Requesting Physician: Flory Payne NP Primary Care Provider: Pascale Arana NP Consult Narrative Reason for consult: neck and low back pain Narrative: Talia Mercado a pleasant 55 year old female presents for evaluation of chronic neck and low back pain. Pt was recently evaluated by Dr Arshad per pt request for cervical and lumbar spine, Dr Arshad recommending cervical facet injections for cspine pain and right piriformis injection for low back pain. Pt has failed to benefit from > 6 weeks of PT/HEP, heat, ice, tylenol, NSAIDs. cervical mri and lumbar mri consistent for degenerative changes and mild to moderate stenosis. pt underwent right C5-6 C6-7 TFESI with >50% improvement, no longer noting RUE pain/weakness and neck pain well controlled. Pain in low back 5/10 sharp shooting, increasing to 8/10 with lifting, driving, standing, sitting, stretching, lifting, bending, stairs, activity. notes improvement with standing and lying. recently underwent right piriformis injection with 0% improvement per pt cc:: CC: Flory Payne NP Review of Systems ROS Musculoskeletal Reports: back pain; Denies: neck pain [facility] Medical History Overactive bladder ?N32.81 - Overactive bladder (ICD-10) Obesity ?E66.9 - Obesity, unspecified (ICD-10) Nicotine dependence ?F17.200 - Nicotine dependence, unspecified, uncomplicated (ICD-10) History of cystocele ?Z87.448 - Personal history of other diseases of urinary system (ICD-10) PVD (peripheral vascular disease) ?I73.9 - Peripheral vascular disease, unspecified (ICD-10) Iron deficiency anemia ?D50.9 - Iron deficiency anemia, unspecified (ICD-10) Fibromyalgia ?M79.7 - Fibromyalgia (ICD-10) Bipolar disorder ?F31.9 - Bipolar disorder, unspecified (ICD-10) UGIB (upper gastrointestinal bleed) ?K92.2 - Gastrointestinal hemorrhage, unspecified (ICD-10) Anxiety with depression ?F41.8 - Other specified anxiety disorders (ICD-10) Gastro-esophageal reflux ?K21.9 - Gastro-esophageal reflux disease without esophagitis (ICD-10) Arthritis of left foot ?M19.072 - Primary osteoarthritis, left ankle and foot (ICD-10) RP (rectal prolapse) ?K62.3 - Rectal prolapse (ICD-10) Chronic headache ?R51.9 - Headache, unspecified (ICD-10) ?G89.29 - Other chronic pain (ICD-10) Surgical History History of tubal ligation ?Z98.51 - Tubal ligation status (ICD-10) Hx of cholecystectomy ?Z90.49 - Acquired absence of other specified parts of digestive tract (ICD-10) H/O cystoscopy ?Z98.890 - Other specified postprocedural states (ICD-10) H/O esophagogastroduodenoscopy ?Z98.890 - Other specified postprocedural states (ICD-10) Hx of gastric bypass ?Z98.84 - Bariatric surgery status (ICD-10) Family History Mother Family history of diabetes mellitus Father Heart disease Social History Within the past year, how often did you have a drink containing alcohol: never Within the past year, how often did you have six or more drinks on one occasion: never Score interpretation: A score less than 3 is consistent with normal alcohol consumption. 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 Known occupational exposures/hazards: No Highest level of school completed/degree received: high school graduate Little interest or pleasure in doing things: not at all Feeling down, depressed, or hopeless: not at all Do you think of yourself as: straight/heterosexual Gender Identity: female Meds Home Medications and Allergies Home Medications ?Medication ?Instructions ?Recorded ?Confirmed ?Type duloxetine 30 mg capsule,delayed 60 mg PO DAILY 06/19/23 05/05/25 History release (Cymbalta) zolpidem 10 mg tablet (Ambien) 10 mg PO DAILY PRN insomnia 07/11/23 05/05/25 History cyclobenzaprine 10 mg tablet 10 mg PO TID PRN muscle spasm 01/31/25 05/05/25 History fexofenadine 180 mg tablet 180 mg PO DAILY 01/31/25 05/05/25 History (Layla Allergy) gabapentin 300 mg capsule 900 mg PO TID 01/31/25 05/05/25 History (Neurontin) meloxicam submicronized 10 mg 15 mg PO DAILY 01/31/25 05/05/25 History capsule (Vivlodex) vitamin B12 500 mcg-folic acid 400 1 tab PO DAILY 01/31/25 05/05/25 History mcg tablet cariprazine 3 mg capsule (Vraylar) 3 mg PO DAILY 03/10/25 05/05/25 History lansoprazole 15 mg capsule,delayed 15 mg PO DAILY 03/10/25 05/05/25 History release (Prevacid 24Hr) cholecalciferol (vitamin D3) 25 1,000 unit PO DAILY 05/05/25 05/05/25 History mcg (1,000 unit) capsule mirabegron 50 mg tablet,extended 50 mg PO DAILY 05/05/25 05/05/25 History release 24 hr (Myrbetriq) sucralfate 1 gram tablet 1 g PO TID 05/05/25 05/05/25 History Allergies Allergy/AdvReac Type Severity Reaction Status Date / Time Penicillins Allergy Severe Hives Verified 05/05/25 07:49 Exam Constitutional Documenting provider has reviewed patient's vital signs: yes Common normals: no apparent distress, oriented x3, healthy appearing, alert and well nourished General appearance: cooperative [facility] Common normals: normocephalic, hearing grossly normal bilaterally and moist oral mucous membranes Head and scalp: normocephalic Eye Common normals: PERRL Pupil: PERRL Neck & C-Spine Common normals: full ROM General: normal visual inspection Cervical spine: cervical ROM normal Chest Common normals: inspection of chest normal Respiratory Common normals: normal respiratory effort, no retractions and no use of accessory muscles Back & Pelvis Lumbar spine/lower back: ROM limited, pain with ROM, lumbar spinal tenderness and straight leg raise negative bilaterally Sacroiliac joints: SI joints normal Other: positive facet loading strength 5/5 in BLE Neuro Common normals: oriented x3 Sensorium/orientation: alert Psych Common normals: mental status grossly normal, thought process normal, cooperative, affect normal, speech normal and activity/motor behavior normal Speech: normal speech Thought process: normal thought process Results Additional Findings Additional findings: If on a controlled substance or opioids, I have checked an [place] report on this patient and there are no aberrancies noted in the prescribing history.??If on a controlled substance or opioid a drug screen was completed and reviewed within the last year, and if there has not been a drug screen completed we ordered one today to monitor higher risk, state monitored pain medication use. As part of providing excellent, safe, comprehensive care, the following was completed at our patient's visit: 1. A medication reconciliation and review to ensure accurate knowledge of current/active medications, including asking our patients to inform us about any tyma-jgj-fbgxmbc medications or herbal remedies/nutritional supplements/alternative remedies. 2. A review to specifically ensure our patients have had annual screening for screening for depression, screening for tobacco use, and screening for unhealthy alcohol use. For concerning screenings had a discussion with the patient, provided patient education, and recommended follow-up with primary care provider when appropriate. If patient noted with a risk of falling, they received education on strength, gait, and balance training to prevent future risk of falling. Portions of this note may have been carried over from the previous visit and updated as appropriate. Please note this office utilizes paper charting in addition to the electronic medical record. A list of current medications, vitals, and PMH is available there as the clinical staff outside of myself do not have access to [facility] charting during the clinic day operations. As part of providing quality comprehensive care the current medications, vitals, and PMH were reviewed in the paper chart. Assessment and Plan Assessment and Plan (1) Piriformis syndrome of right side: (2) Lumbar spondylosis: Plan The patient has had over 3 months of moderate to severe low back pain with functional impairment and inadequate response to conservative care including NSAIDS (unless there are contraindication such as concurrent blood thinners), multiple oral or topical pain medications, and home exercise program/physical therapy.? Patient has completed >6 weeks of guided home exercise program and/or formal physical therapy program without relief of their symptoms.? I have reviewed the imaging of the lumbar spine and no red flags were identified.? The Oswestry Disability Index was completed, and the patient scored a 42%.? bilateral L4-5 L5-S1 mbb x2 in consideration of RFA for facet mediated pain continue current medications continue HEP as tolerated f/u after each injection
== END 2025-05-14 15:24 | disposition home or self-care (01) ==
LOC: PM 15:23
PROVIDERS: PCP Nurse Practitioner; Visit Provider Nurse Practitioner
DX: G57.01 Lesion of sciatic nerve, right lower limb (principal); M47.816 Spondylosis without myelopathy or radiculopathy, lumbar region
CPT/HCPCS: G0463

== ENCOUNTER 2025-05-19 11:20 | Day surgery (SDC) | payer OTHER, SELFPAY ==
--- OUTSIDE RECORDS SUMMARY | 2019-11-19 07:15 | XMS_ITS | Continuity of Care Document ---
Author Organization [employer] [facility] Address [address] [facility] [place] [address] Phone Care Team Providers Care Ergonomics Engineer Name Role Phone Bernardo WELLER, Mathew Early Unavailable Procedures Procedure Date POSTOP FOLLOW-UP VISIT POSTOP FOLLOW-UP VISIT Gastric Bypass LAP GASTRIC BYPASS/YOUSUF-EN-Y OFFICE/OUTPATIENT VISIT, EST OFFICE/OUTPATIENT VISIT, NEW Advance Directives Directive Yes / No Effective Date File Name No Information Encounters Encounter Description Practice Location Reason(s) For Visit Diagnoses Date Provider Providers Copied on Encounter [place] [facility], [address] [place] [address], [id number], tel:[phone] [facility] No Information Bernardo Carmona. [address], [id number], [place]. tel:[phone] Referring Provider: Mathew Boudreaux, [address], [address]. tel:[phone] [facility], [address] [place] [address], [id number], tel:[phone] [facility] No Information Laci Londono. [address] [facility] [address], [place], [id number], [place]. tel:[phone] Referring Provider: Spring Aguero, [address] [facility] [address], [place], [address]. tel:[phone] [place] [facility], [address] [place] [address] [address], [place], [place], [id number], [place] tel:[phone] [facility] IP No Information Laci Londono. [address], [place], [place], [id number], [place]. tel:[phone] Referring Provider: Spring Aguero, [address] [facility] [address], [place], [address]. tel:[phone] [place] [facility], [address] [place] [address] [address], [place], [place], [id number], [place] tel:[phone] [facility] IP No Information Bernardo Carmona. [address] [facility] [address], [place], [place], [id number], [place]. tel:[phone] Referring Provider: Mathew Boudreaux, [address] [facility] [address], [place], [address]. tel:[phone] OFFICE/OUTPATI ENT VISIT, [facility], [address] [facility] [address], [place], [place], [id number], [place] tel:[phone] [facility] No Information Bernardo Carmona. [address] [facility] [address], [place], [place], [id number], [place]. tel:[phone] Referring Provider: Mathew Boudreaux, [address] [facility] [address], [place], [address]. tel:[phone] OFFICE/OUTPATI ENT VISIT, [facility], [address] [place] [address] [address], [place], [place], [id number], [place] tel:[phone] [facility] No Information Bernardo Carmona. [address] [facility] [address], [place], [place], [id number], [place]. tel:[phone] Referring Provider: Mathew Boudreaux, [address] [facility] [address], [place], [address]. tel:[phone] Family History Family Member Type Diagnosis Age At Onset No Information Payers Payer name Insurance type Covered constitution party ID Bijal elmore(anastasiia Ruiz [id number] Social History Type Description Quantity Date Captured [...]
--- OUTSIDE RECORDS SUMMARY | 2025-05-19 11:24 | XMS_ITS | Clinical Summary ---
Author Organization [facility] Address [address] [place] [address] Care Team Providers Care Circus Agent Name Role Phone Shaikh NITHIN Main Primary Care Provider [phone] Allergies Active AllergyReactionsCriticalityNoted MtfuVnbbqsdvRqtnrdeiqiq66/19/2023 Medications MedicationSigDispense QuantityRefillsLast FilledStart DateEnd DateStatus citalopram [...] InformationValueDate RecordedSex Assigned at BirthNot on fileLegal TbyUrhery72/29/2022 10:25 PM EDT Gender IdentityNot on fileSexual OrientationNot on file Last Filed Vital Signs Vital SignReadingTime TakenCommentsBlood Jrtewweu03/6109 3:16 PM EDT Abdgj9072 3:16 PM EDTTemperature--Respiratory Rate--Oxygen Pxnwlfdshw06% 04/07/2023 3:16 PM EDTInhaled Oxygen Concentration--Iphvow070 kg (224 lb) 04/07/2023 3:16 PM YBFDwohsc466.1 cm (5' 5 )04/07/2023 3:16 PM EDTBody Mass Index37.28004/07/2023 3:16 PM EDT Plan of Treatment Health MaintenanceDue DateLast DoneCommentsCT Vqnoqiojzmfs1971Colonoscopy 1970Colorectal Cancer Hobmpdntz1971FIT-DNA1971FIT1970 FOBT1970 8653Xlwwoxkhbpqqy1971Depression Evkaxgykz50/13/1983Hepatitis B Vaccines (1 of 3 - 19+ 3-dose series)1990Pneumococcal Vaccine: Pediatrics (0 to 5 Years) and At-Risk Patients (6 to 64 Years) (1 of 2 - PCV)1990Pap Smear1992Adult Ycxoghw5904/05/1993Cervical Cancer Pwntvtcyv79/13/2001 HPV/Bqcdpz0204/05/20019262Qupxfgrmb05/13/2011Zoster Vaccines (1 of 2)1COVID- 19 Vaccine (1 [...]
--- OUTSIDE RECORDS SUMMARY | 2025-05-19 11:24 | XMS_ITS | Clinical Summary ---
Author Organization [employer] Address [id number] [place] [address] Care Team Providers Care Inserting Operator Name Role Phone DerrickPascale argueta Bang CHLORINE PLANT OPERATOR-SKEIN YARN DRIER Primary Care Provider Allergies Active AllergyReactionsCriticalityNoted FbobMrbfcznePqzxyjfnzasYwyks28/19/2023 Medications MedicationSigDispense QuantityRefillsLast FilledStart DateEnd DateStatus meloxicam [...] Problems No known active problems Encounters DateTypeDepartmentCare RomlZtnzmgssgjz77/10/2025Telephone [facility] [address] [place] [address] Areli Gudino CMA 04/02/2025 3:00 PM EDTOffice Visit [facility] [address] [place] [address] Tania Asif MD Cystocele with second degree uterine prolapse (Primary Dx); History of reconstructive repair of rectocele; Urge urinary ubzmizvfplvh43/10/6578Qvxalh51/04/2025bstract [facility] [address] [facility] [place] [address] Tania Asif MD from Last 3 Months Family History Medical HistoryRelationNameCommentsDiabetesFatherHeart attackFatherHypertension FatherStrokeFatherBreast cancerMaternal AuntDiabetesMaternal GrandfatherBreast cancerMaternal GrandmotherDiabetesMotherThyroid cancerPaternal GrandmotherColon cancerNeg HxOvarian cancerNeg HxUterine cancerNeg HxRelationNameStatusComments Vrbjduuhu7MjbrxJjkkhwSyfxynaiVuxagazj AuntAliveMaternal GrandfatherDeceased Maternal GrandmotherDeceasedMotherDeceasedPaternal GrandfatherDeceasedPaternal ZdvxyfpuoeaEurssqhjSvfioal1PkaquKtzZerjq Social History Tobacco UseTypesPacks/DayYears UsedDateSmoking Tobacco: Every StpIflzsxcoym258 Smokeless Tobacco: Never Tobacco Cessation:Ready to Q uit: Not Asked; Counseling Given: Not Answered Alcohol UseStandard Drinks/WeekCommentsYes0 (1 standard drink = 0.6 oz pure alcohol)ChildcareAnswerDate UfpivnvyUcdeknrpjEtvenou85/12/2019EmploymentAnswer Date FgzzdusnHnypkbshtwNxgapeb14/12/2019Hunger ScreeningAnswerDate Recorded Within the past 12 months we worried whether our food would run out before we got money to buy more.Never True04/02/2025Within the past 12 months the food we bought just didn't last and we didn't have money to get more.Never True 04/02/2025Purpose - LifeAnswerDate RecordedPurpose and direction in lifeUnknown 1CommentsNoSex and Gender InformationValueDate RecordedSex Assigned at BirthNot on fileLegal JpiFtbhcr92/06/2015 12:10 PM EDTGender IdentityNot on fileSexual OrientationNot on file Last Filed Vital Signs Vital SignReadingTime TakenCommentsBlood Cytualze51/6409 2:57 PM EDT Nqclm558304/02/2025 2:57 PM EDTTemperature--Respiratory Rate--Oxygen Saturation-- Inhaled Oxygen Concentration--Qavdry72.1 kg (176 lb 9.6 oz)04/02/2025 2:57 PM JTXDnmemd551.4 cm (5' 5.5 )04/02/2025 2:57 PM EDTBody Mass Index28.9404/02/2025 2:57 PM EDT Plan of Treatment DateTypeDepartmentCare Team (Latest Contact Info)Jvrloafwhzu94/05/2025 2:30 PM ESTProcedure visit [facility] [address] [facility] [address] Tania Asif MD [address] [place] [address] Health MaintenanceDue DateLast DoneCommentsTobacco Fxxpbgfukm1971 Depression Zblhhxarg98/13/1983Adult BMI Follow Up Plan1989DTaP,Tdap and Td Vaccines (1 - Tdap)1990Pap Smear1992Zoster (Shingles) Vaccine (1 of 2)2021Influenza Dfvzxeh6003/24/2025dult BMI Zdtfqcnqa07 Tobacco Qzcwwzoiy37 Medical Devices Not on file Insurance Care Teams Team MemberRelationshipSpecialtyStart DateEnd Date Pascale Arana, CHLORINE PLANT OPERATOR-SKEIN YARN DRIER [address] [place] [address] PCP - GeneralNurse Practitioner04/02/25
--- OUTSIDE RECORDS SUMMARY | 2025-05-19 11:24 | XMS_ITS | Clinical Summary ---
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 Name Role Phone Molina De Anda MD Primary Care Provider [phone] Valerie Groves STEWARD/STEWARDESS SECOND CLASS Unavailable [phone] Karime Dias PMHNP-BC Unavailable + [phone] Rohan Burns [facility] Unavailable Unavailable Allergies Active AllergyReactionsCriticalityNoted BrxvJwoycqmsJvxnnqqnkflJttxv28/12/2023 Medications MedicationSigDispense QuantityRefillsLast FilledStart DateEnd DateStatus meloxicam [...] DateGAD (generalized anxiety disorder)03/06/2025 Spinal stenosis, lumbosacral wyjomx4302/05/2025Spinal stenosis, cervical region 02/05/2025Sleep apnea01/22/2025Severe episode of recurrent major depressive disorder, without psychotic ywtcfhtf59/02/2025 Assessment & Plan (02/25/2025 12:45 PM EDT): Was referred to psych, they are currently managing meds Is off on FMLA for this PTSD (post-traumatic stress disorder)01/22/2025 Assessment & Plan (02/25/2025 7:23 AM EDT): Dx as per psych Abnormal Papanicolaou smear of cervix with positive human papilloma virus (HPV) test11/27/2024 Overview (11/27/2024): Pap smear 11/15 Hot flashes due to weisnmwvj56/30/2025 Assessment & Plan (11/20/2024 4:37 PM EDT): Discussed insurance concern over dose of celexa, she takes for hot flashes she is willing to trial a decrease in dose to 20mg and will cut her current pill in half BMI 32.0-32.9,adult10/23/2024Overactive bladder due to prolapse of female genital organ10/02/2024Headache, menstrual migraine, with status migrainosus 08/12/2024Malaise and zllpxpx3808/12/2024Detrusor muscle xfpqrkancn66/20/2025lass 1 obesity due to excess calories without [...] options for weight loss. Environmental and seasonal inuriokqw02/20/2025 Assessment & Plan (08/12/2024 4:42 PM EST): Cont layla, add flonase History of GI bleed03/06/2024LUQ abdominal pain03/06/20246881Ctslefuilquc53/07/2024 Assessment & Plan (04/10/2024 6:44 PM EDT): [...] AFTER BM. Referral sent to GI Nicotine iaiheynswt97/22/2024 Assessment & Plan (02/25/2025 7:23 AM EDT): [...] ready to start this process Antibiotic-induced yeast ppfmerqmo68/22/2024 Assessment & Plan (08/15/2023 12:15 AM EST): Will order Fluconazola in case she develops abx induced yeast infection History of gastric twkqno4208/04/2023 Assessment & Plan (11/13/2023 5:18 PM EDT): On B12 injection and required IV iron. 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 Fgmizmlywyiu67/12/2023 Assessment & Plan (01/06/2025 6:10 PM EDT): [...] Elevate HOB if possible Current med: lansoprazole Dmflxzms51/12/2023 Assessment & Plan (02/25/2025 12:44 PM EDT): [...] mg. Follow up in 6 weeks. B12 /12/2023 Assessment & Plan (10/23/2024 6:11 PM EDT): [...] prior gastric bypass. Plantar fasciitis of right foot06/30/20230862Vsgbmenbg97/08/2023Uterine prolapse 06/30/2023 Resolved Problems ProblemNoted DateDiagnosed DateResolved DateUTI (urinary tract infection), vnsxhkshnoeyc94/24/202504/Well woman exam with routine gynecological exam / Assessment & Plan (11/20/2024 4:32 PM EDT): Thin prep: fu as per pap indications Monthly BSE Weight bearing exercise as well Encounter for screening mammogram for malignant neoplasm of sduehu5810/02/2024 01/22/2025MI 34.0-34.9,adult/08/2024Female genital symptoms /Problem related to unspecified psychosocial circumstances /6575Rlrpnsj09/20/202503/06/20250882Cenpqx84 Assessment & Plan (01/06/2025 6:09 PM EDT): See bipolar entry Qxgjupuepzwn63/20/202504/ute non-recurrent maxillary sinusitis Assessment & Plan (08/12/2024 4:41 PM EST): Zithromax , finish atb Fluids, rest Fu if not better, add steroid nasal spray Cutaneous abscess of abdominal wall/ Overview (08/12/2024): [facility] [id number] EXP: 10/22/2026 LOT # [id number] Assessment & Plan (08/12/2024 5:50 PM EST): [...] daily if no contraindications Screening for diabetes qubrqarf99 Assessment & Plan (01/22/2024 5:28 PM EDT): Screen for T2 DM Encounter for screening mammogram for breast cuzhhm52 Assessment & Plan (01/22/2024 5:29 PM EDT): Ordered mammogram. Seizure-like jkldvymz12 Assessment & Plan (01/22/2024 5:28 PM EDT): [...] both ears without spontaneous rupture of tympanic ovigxpdtw41Overactive sxrgddq1711/13/2023 01/06/2025utaneous abscess of groin Assessment & Plan [...] prednisone and benzonatate. Bipolar disorder with severe cdqwlthlhe79/12/202307/08/2024 Assessment & Plan (01/06/2025 6:09 PM EDT): [...] or concerns related to new medications. Breast ohiadbqii08/06/2025 Assessment & Plan (07/04/2023 3:48 PM EST): Ordered mammogram Menorrhagia with regular cycle/ Encounters DateTypeDepartmentCare LwnaFxerfkiyyhy47/17/2025 4:30 PM EDTSocial Work [facility] [address] [place] [address] [address] [place] [address] Rohan Burns LPC JESSIKA (generalized anxiety disorder) ; Severe episode of recurrent major depressive disorder, without psychotic features (HCC); PTSD (post-traumatic stress disorder)04/09/2025amb flowsheet [facility] [address] [place] [address] [place] [address] Rohan Burns LPC 04/09/20251413Cezead60/11/2025 9:00 AM EDTTelemedicine [facility] [address] [place] [address] [place] [address] Karime Dias [facility] JESSIKA (generalized anxiety disorder) ; Severe episode of recurrent major depressive disorder, without psychotic features (HCC); PTSD (post-traumatic stress disorder) ; Insomnia, unspecified type; Ewfpqavsvnxm59/11/6955Umqzrf67/06/2025Refill [facility] [address] [facility] [address] [place] [address] Karime Dias [facility]-BC Severe episode of recurrent major depressive disorder, without psychotic features (HCC)03/25/2025 2:30 PM EDTSocial Work [facility] [address] [facility] [address] [place] [address] Rohan Burns LPC JESSIKA (generalized anxiety disorder) ; Severe episode of recurrent major depressive disorder, without psychotic features (HCC); PTSD (post-traumatic stress disorder)03/25/2025amb flowsheet [facility] [address] [facility] [address] [place] [address] Rohan Burns LPC 03/25/20253011Ydgumh01/26/8443Bdqwpf92/18/2025Results Follow-Up [facility] [place] [facility] [address] [address] Natacha Lyn MA ALL CBC WITH AUTO DIFF, HMHP IRON03/06/2025 3:00 PM EDTSocial Work [facility] [address] [facility] [address] [place] [address] Rohan Burns LPC JESSIKA (generalized anxiety disorder) ; Severe episode of recurrent major depressive disorder, without psychotic features (HCC); PTSD (post-traumatic stress disorder)03/06/2025amboo flowsheet [facility] [address] [facility] [address] [place] [address] Rohan Burns LPC 03/06/20257939Isfnax71/13/2025linisync Result Encounter [facility]OM[facility] External Department Unsolicited Pascale Arana NP 02/26/2025linisync Result Encounter [facility]OM[facility] External Department Unsolicited Provider, Generic External Data 02/26/2025Refill [facility] [address] [place] [address] Pascale Arana NP Gastroesophageal reflux disease, unspecified whether esophagitis present (Primary Dx)02/26/2025Telephone [facility] [address] [place] [address] Pascale Arana NP 02/25/2025 11:30 AM EDTOffice Visit [facility] [address] [place] [address] Pascale Arana, MARY JO Severe episode of recurrent major depressive disorder, without psychotic features (HCC) (Primary Dx); Cigarette nicotine dependence without complication; PTSD (post-traumatic stress disorder) ; Class 1 obesity due to excess calories without serious comorbidity with body mass index (BMI) of 32.0 to 32.9 in adult; Iron deficiency anemia secondary to inadequate dietary iron intake; Primary fwsutxtg65/05/2025bstract [facility] [address] [place] [address] Pascale Arana NP 02/24/2025 3:00 PM EDTOffice Visit [facility] [place] [facility] [address] [place] [address] [facility] JESSIKA (generalized anxiety disorder) ; Severe episode of recurrent major depressive disorder, without psychotic features (HCC); PTSD (post-traumatic stress disorder) ; Insomnia, unspecified type; Sleep apnea, unspecified type02/24/2025amboo flowsheet [facility] [address] [place] [address] [place] [address] Karime Dias [facility] 02/24/20255241Ungybg03/01/2025bstract [facility] [place] [facility] [address] [place] [address] Pascale Arana NP 02/20/2025Refill [facility] [place] [facility] [address] [place] [address] Pascale Arana NP Psychophysiological llqcqiuj12/30/2025linisync Result Encounter NOMS External Department Unsolicited Provider, Generic External Data 02/18/2025bstract [facility] [address] [place] [address] Pascale Arana NP 02/17/2025Telephone [facility] [address] [place] [address] Pascale Arana NP Error (VOID this visit)from Last 3 Months Family History Medical HistoryRelationNameCommentsDiabetesFatherCharlesHeart diseaseFather CharlesHypertensionFatherCharlesStrokeFatherCharlesBreast cancerMaternal GrandmotherThyroid cancerMaternal GrandmotherDepressionMotherConnieDiabetes MotherConnieBreast cancerMother's SisterRelationNameStatusCommentsDaughter 1 AliveDaughter 2AliveDaughter 3AliveFatherCharlesAliveMaternal Grandmother DeceasedMotherConnieAliveMother's SisterAliveSonAlive Social History Tobacco UseTypesPacks/DayYears UsedDateSmoking Tobacco: Every WtdWdmopxfidk682.8 Started: 1985Passive Smoke Exposure: PastSmokeless Tobacco: Never [...] times a week08/07/2023How often do you attend presybeterian or sabianist services?Never08/07/2023o you belong to any clubs or organizations such as presybeterian groups, unions, fraternal or athletic groups, or school groups?No08/07/2023How often do you attend meetings of the clubs or organizations you belong to?Patient yuhcqfok05/15/2024re you , , , , never , or living with a partner?Wnajvto1208/07/2023 AUDIT-CAnswerDate RecordedQ1: How often do you have a drink containing alcohol? Never08/07/2023Q2: How many drinks containing alcohol do you have on a typical day when you are drinking?Patient does not drink08/07/2023Q3: How often do you have six or more drinks on one occasion?Never01/15/2024Overall Financial Resource Strain (CARDIA)AnswerDate RecordedHow hard is it for you to pay for the very basics like food, housing, medical care, and heating?Not hard at all 08/07/2023HQ-2AnswerDate RecordedPatient Health Questionnaire-2 Score5 01/22/2025[facility] [place] of Occupational Health - Occupational Stress QuestionnaireAnswerDate RecordedDo you feel stress - tense, restless, nervous, or anxious, or unable to sleep at night because yourmind is troubled all the time - these days?To some bogptp3608/07/2023Exercise Vital SignAnswerDate Recorded On average, how many [...] months, how many places have you lived?1 08/07/2023In the last 12 months, was there a time when you did not have a steady place to sleep or slept in ashelter (including now)?No08/07/2023Comments UnknownSex and Gender InformationValueDate RecordedSex Assigned at BirthNot on fileLegal YnhVmqdsm81/15/2023 7:47 PM EDTGender IdentityNot on fileSexual OrientationNot on file Last Filed Vital Signs Vital SignReadingTime TakenCommentsBlood Eutmogiy263/6408 11:31 AM EDT Rvufg791002/25/2025 11:31 AM CKKYviwbjtbhuh06.6 ??C (97.8 ??F)02/25/2025 11:31 AM EDTRespiratory Nbfp774601/06/2025 4:32 PM EDTOxygen Ztzwnhejho53%02/25/2025 11:31 AM EDTInhaled Oxygen Concentration--Gbainv24.4 kg (172 lb 12.8 oz)02/25/2025 11:31 AM QUIGknrxt151.1 cm (5' 5 )10/02/2024 4:51 PM EDTBody Mass Index28.76 10/02/2024 4:51 PM EDT Plan of Treatment DateTypeDepartmentCare Team (Latest Contact Info)Kkbhlwrrevv80/10/2025 3:00 PM ESTOffice Visit [facility] [address] [facility] [address] [place] [address] Macarena Chang, CASINO WORKER-CARDIAC NURSE PRACTITIONER [address] [facility] [address] [place] [address] Goals GoalPatient Goal TypeAssociated ProblemsRecent ProgressPatient-Stated?Author Help patient manage antidepressant medication Care PlanPatient on antidepressant monitoring Shaikh Cornell MD Procedures Procedure NamePriorityDate/TimeAssociated DiagnosisCommentsHMHP IRONRoutine 03/05/2025 5:03 PM EDT ALL CBC WITH AUTO QKEONwdmqhm52/13/2025 5:03 PM EDT SEGMENTAL BLOOD EWWPTPAT78/06/2025 3:34 PM EDT XR FOOT LT MIN 3V02/19/2025 3:03 PM EDT from Last 3 Months Results * HMHP IRON (03/05/2025 5:03 PM EDT)ComponentValueRef RangeTest MethodAnalysis TimePerformed AtPathologist SignatureTBH IRON78.050.0 - 170.0 ug/dLTBHSpecimen (Source)Anatomical Location / LateralityCollection Method / VolumeCollection TimeReceived Time03/05/2025 5:03 PM EDT03/05/2025 5:06 PM EDT Narrative CLIN[facility]NC - 03/05/2025 5:54 PM EDT Authorizing ProviderResult TypeResult StatusLisa Aichholz NPCLINISYNCFinal ResultPerforming OrganizationAddressCity/State/ZIP CodePhone Number [facility] * (ABNORMAL) ALL CBC WITH AUTO DIFF (03/05/2025 5:03 PM EDT)ComponentValueRef RangeTest MethodAnalysis TimePerformed AtPathologist SignatureTBH WBC6.64.0 - 11.0 10 3/uLTBHTBH RBC3.79(L)4.20 - 5.40 10 6/uLTBHTBH HGB11.8(L)12.0 - 16.0 g/dLTBHTBH HCT37.236.0 - 48.0 %TBHTBH MCV98.281.0 - 99.0 fLTBHTBH MCH31.126.7 - 34.0 pgTBHTBH MCHC31.729.9 - 35.2 g/dLTBHTBH RDW15.3(H)11.0 - 15.0 %TBHTBH MRP212564 - 450 10 3/uLTBHTBH MPV10.09.5 - 13.5 [...] Aichholz NPCLINISYNCFinal ResultPerforming OrganizationAddressCity/State/ZIP CodePhone Number CLINISYNC TBH * SEGMENTAL BLOOD PRESSURE (02/26/2025 3:34 PM EDT)Anatomical RegionLaterality ModalityRadiographic ImagingSpecimen (Source)Anatomical Location / Laterality Collection Method / VolumeCollection TimeReceived Time02/26/2025 3:34 PM EDT Narrative 02/27/2025 9:07 AM EDT [facility] ?[address] ? [place] [address] ? Cardiology Report ? Signed ? Patient: TALIA RUTHERFORD ?MR#: [id number] ?? : 1970 ?Acct:[id number] ?? Age/Sex: 54 / F ?ADM Date: 02/26/25 ?? Loc: CARD ? Attending Dr: Michael Escobedo PA ? Ordering Physician: Michael Escobedo ?? Date of Service: 02/26/25 ?? Procedure(s): CA segmental UE or LE PONCE ?? Accession Number(s): [id number] ? cc: Pascale Arana NP; Michael Escobedo ?[facility] ? Test Date: ?2025-02-26 ?? Pat Name: ? TALIA RUTHERFORD ?Department: ? Room: ? - ?? Gender: ? Female ? Drug Safety Physician: ?? Cari Nichole ?? : ?1970 ? Requested By: Michael Escobedo ?? Order Number: [id number] ?Reading : ?? SCOTT ??Bronson PARKINSON ? [...] 0907 ? DD/ 1534 ? TD/TT: ? Director [place] [employer]: Procedure Note Radiology, Radiologist, MD - 02/27/2025 [place] [address] Cardiology Report Signed Patient: TALIA RUTHERFORD [facility]#: [id number] : 1970Acct:[id number] Age/Sex: 54 / FADM Date: 02/26/25 Loc: CARD Attending Dr: Michael Escobedo PA Ordering Physician: Michael Escobedo Date of Service: 02/26/25 Procedure(s): CA segmental UE or LE PONCE Accession Number(s): [id number] cc: Pascale Arana NP; Michael Escobedo [facility] Test Date: 2025-02-26 Pat Name: TALIA RUTHERFORD Department: Room: - Gender: Female Drug Safety Physician: Cari Nichole : 1970 Requested By: Michael Escobedo Order Number: [id number] Reading MD: SCOTT PARKINSON M.D. Interpretive Statements [...] Dictated By: SCOTT PARKINSON Signed By:02/27/25 0902/27/25 0907 DD/ 1534 TD/TT: Director [place] [employer]: Authorizing ProviderResult TypeResult StatusGeneric External Data ProviderIMG XR PROCEDURESFinal Result * XR FOOT LT MIN 3V (02/19/2025 3:03 PM EDT)Anatomical RegionLateralityModality OtherSpecimen (Source)Anatomical Location / LateralityCollection Method / VolumeCollection TimeReceived Time02/19/2025 3:03 PM EDT Narrative 02/19/2025 3:06 PM EDT [facility] ?[address] ? [place] [address] ?XRay Report ? Signed ? Patient: KRISH,TALIA D ?MR#: [id number] ?? : 1970 ?Acct:[id number] ?? Age/Sex: 54 / F ?ADM Date: 07/30/25 ?? Loc: RAD ? Attending Dr: Michael Escobedo PA ? Ordering Physician: Michael Escobedo ?? Date of Service: 02/19/25 ?? Procedure(s): XR foot LT min 3V ?? Accession Number(s): [id number] ? cc: Pascale Arana NP; Michael Escobedo ? [facility] ? [address] ? [place] [address] ? Patient Name: ?? TALIA RUTHERFORD ? MRN: [facility]:[id number] ? date: 1970 ?Sex: F ?? Assigned Patient Location: RAD ?? Current Patient Location: RAD ?? Accession/Order Number: [id number] ?? Exam Date: 02/19/2025 ??10:39 ?Report Date: [...] SPURRING. ? Impression dictated by: Merlin Massey Jr. D.OConsuelo ??02/19/2025 3:03 PM ? Dictation Location: [place] [address] ? Electronically authenticated by: [id number] ??Y ?? Date: 02/19/2025 ??15:03 ? Dictated By: ?Meriln Massey M.D. ? Signed By: ?02/19/25 1506 ? DD/ 1503 ? TD/TT: ? Director [employer]: Procedure Note Radiology, Radiologist, MD - 02/19/[address] [address] XRay Report Signed Patient: TALIA RUTHERFORD [facility]#: [id number] : 1970Acct:[id number] Age/Sex: 54 / FADM Date: 02/19/25 Loc: RAD Attending Dr: Michael LAZAR Ordering Physician: Michael Escobedo Date of Service: 02/19/25 Procedure(s): XR foot LT min 3V Accession Number(s): [id number] cc: Pascale Arana NP; Michael Escobedo [place] [address] Patient Name: TALIA RUTHERFORD MRN: [id number] date: 1970 Sex: F Assigned Patient Location: [facility] Current Patient Location: RAD Accession/Order Number: [id number] Exam Date: 02/19/2025 10:39 Report Date: 02/19/2025 [...] Jr., D.O. 02/19/2025 3:03 PM Dictation Location: [place] [address] Electronically authenticated by: [id number] Y Date: 5:03 Dictated By: Merlin Massey M.D. Signed By:02/19/25 1506 DD/ 1503 TD/TT: Director [place] [employer]: Authorizing ProviderResult TypeResult StatusGeneric External Data Provider [facility]NC IMAGINGFinal Result from Last 3 Months Additional Health Concerns Active ProblemsNoted DateDiagnosed DatePatient on antidepressant monitoring plan 08/03/2023 Insurance Care Teams Team MemberRelationshipSpecialtyStart DateEnd Date Molina De Anda MD PCP - GeneralFamily Medicine02/21/24 Valerie Groves NP Nurse PractitionerFamily Medicine02/21/24 [facility] [address] [place] [address] [place] [address] Nurse PractitionerBehavioral Health01/22/25 Rohan Burns LPC Social WorkerBehavioral Health03/06/25
[2025-05-19 11:41] VITALS: BP 109/66; PULSE 77; TEMP 35.9; O2SAT 97
--- OUTSIDE RECORDS SUMMARY | 2025-05-19 11:46 | XMS_ITS | CCD ---
Author Organization 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 Name Role Phone PHYSICIAN, DEFAULT Admitting Unavailable [...] Physician Shaikh Main MD Primary Care Provider [phone] Ron Palomares Attending Unavailable Segun HOLLOWAY Attending Unavailable Segun HOLLOWAY Attending Unavailable MD Tyson Collazo Attending Provider Molina De Anda MD Primary Care Provider [place] HAND BRIM IRONER, Angel Luis Unavailable [phone] [place] HAND BRIM IRONER, Angel Luis Unavailable Arun PMHNP-BCEunice Unavailable No Pcp, No Pcp Primary Care Provider UnavailRohan Crooks LPC Unavailable Unavailable Shun Arshad MD Attending Provider Pascale Arana Primary Care Provider [phone] Molina De Anda MD Primary Care Provider [phone] Germain HAND BRIM IRONER, Angel Luis Unavailable [phone] SHELIA MUNIZ Attending Unavailable NO PCP, NO PCP Primary Care Unavailable JOVON ASIF Attending Unavailable SHELIA MUNIZ Referring Unavailable PASCALE ARANA Primary Care Unavailable Derrickhdes LASER SPECIALIST-JASON, Pascale Cuenca Primary Care Provider ANGEL LUIS GROVES Attending Unavailabl e AICHHOLZ, PASCALE Attending Unavailable AICHHOLZ, PASCALE Attending Unavailable AICHHOLZ, PASCALE Attending Unavailable AICHHOLZ, PASCALE Attending Unavailable EUNICE DISA Attending Unavailable SUMIT, PASCALE Referring Unavailable EUNICE DIAS Attending Unavailable SUMIT, PASCALE Attending Unavailable ROHAN WATERS Attending Unavailable ROHAN WATERS Attending Unavailable EUNICE DIAS Attending Unavailable ROHAN WATERS Attending Unavailable ANGEL LUIS GROVES Attending Unavailabl e DERRICKHHOLZ, PASCALE Attending Unavailable Aichholz HAND BRIM IRONER-C, Pascale Cuenca Primary Care Provider Shun Arshad MD Other Provider Loc Aguayo MD Attending Provider [phone] Pascale Ochoa Attending Provider [phone] Shun Arshad Attending Unavailable Shun Arshad Admitting Unavailable Pascale Arana Primary Care Unavailable Clinton Del Toro APRN Attending Provider [phone] Meek WELLER, Flores Gutierrez Attending Unavailable Gilbertoitis , Andzhao Gutierrez Attending Unavailable Meek WELLER, Andzhao Gutierrez Attending Unavailable Allergies Allergy ClassificationReported Allergen(s)Allergy TypeDate of OnsetReaction(s) Facility (6 sources)penciclovir; Translations: [penciclovir]Drug [facility]bdhtyg83-32-7478[facility] (10 sources)Penicillins; Translations: [PENICILLINS]Drug allergy (disorder) 19-20-2558[facility]UjeL[facility] (20 sources)Penicillin GDrug Pdllwkl83-06-2986FsauvmoVHGJ Healthcare (20 sources)PenicillinsPropensity to adverse rotxqciiq61-18-4338VtmfnHHZA Healthcare (4 sources)PenicillinsPropensity to adverse reactions to slji15-62-9366ZpxlxV[facility] Work Phone: (1 source)PenicillinsDrug allergy (disorder)25-15-1265RgqprcapoWvumedicine [facility] Medications Current Medications MedicationDrug Class(es)DatesSig (Normalized)Sig (Original)[id number] 200 actuat albuterol 0.09 mg/actuat metered dose inhaler (20 sources)beta2-Adrenergic AgonistStart: 93-42-9031vcuw 1 puff(s) by inhalation every six hours as needed for wheezingStart: 03-25-2025 End: 63-54-0794Clynmqmlb Sulfate 90 mcg/actuation HFA aerosol inhaler Discontinued INHALATION March 25, 2025 12:00am April 01, 2025 11:38am Start: 02-06-2025 End: 32-87-1400vxnm 2 puff(s) by inhalation every six hours as neededalbuterol (PROVENTIL HFA;VENTOLIN HFA) 90 mcg/actuation inhaler Inhale 2 puffs every 6 (six) hours as needed. 02/06/2025 03/08/2025 ActiveStart: 01-14-2025 End: 18-28-1679dyzk 2 puff(s) by inhalation every six hours for wheezing albuterol HFA 90 mcg/act inhaler Indications: URTI (acute upper respiratory infection) , Non-recurrent acute suppurative otitis media of both ears without spontaneous rupture of tympanic membranes Inhale 2 puffs every 6 (six) hours if needed for wheezing 8 g 1 02/06/2025 ActiveStart: 02-29-2024 End: 11-25-8762kjya 2 puff(s) by inhalation every four hours for wheezing albuterol HFA 90 mcg/act inhaler Indications: URTI (acute upper respiratory infection) , Non-recurrent acute suppurative otitis media of both ears without spontaneous rupture of tympanic membranes Inhale 2 puffs every 4 (four) hours if needed for wheezing 18 g 12/20/2024 01/14/2025 DiscontinuedARIPiprazole 10 mg oral tablet (2 sources)Atypical AntipsychoticStart: 89-75-3030urfa 1 tablet by mouth once dailyaripiprazole 10 mg Tab 10 mg = 1 tab(s), Oral, Daily, Refills(s) 0 Start Date: 05/24/23 Status: OrderedARIPiprazole Activecariprazine 4.5 mg oral capsule (20 sources)Atypical AntipsychoticStart: 04-03-2025 End: 33-98-6444rzks 1 capsule by mouth once dailyStart: 04-01-2025 End: 47-82-9701tfgr 1 capsule by mouth once dailyCariprazine HCl (Vraylar) 1.5 MG capsule Indications: Severe episode of recurrent major depressive disorder, without psychotic features (HCC) Take 1 capsule by mouth Daily for 3 days 3 capsule 04/01/2025 04/03/2025 DiscontinuedStart: 02-24-2025 End: 22-22-1746Pdbcpfiiugs (Vraylar) 3 mg capsule Discontinued MG PO March 25, 2025 12:00am April [id number]:23amStart: 01-22-2025 End: 11-45-1846lpfa 1 capsule by mouth once dailyCariprazine HCl (Vraylar) 1.5 MG capsule Indications: Severe episode of recurrent major depressive disorder, without psychotic features (HCC) Take 1.5 mg by mouth Daily 30 capsule 01/22/2025 02/24/2025 Discontinuedcholecalciferol 0.125 mg oral capsule (4 sources)Vitamin DStart: 52-84-0803Aylevkxz 30 mg Cap-DR (2 sources)Start: 91-50-1067nwbv 1 capsule by mouth once dailyCymbalta 30 mg Cap-DR = 1 cap(s), Oral, Daily, Refills(s) 0 Start Date: 05/24/23 Status: Ordered DULoxetine 60 mg delayed release oral capsule (20 sources)Serotonin and Norepinephrine Reuptake InhibitorStart: 03-13-2024 End: 50-88-6642Sozwv: 02-29-2024 End: 26-67-6400Xsziv: 07-03-2023 End: 98-79-5156dsgk 1 capsule by mouth in the morningDULoxetine (Cymbalta) [address] capsule Indications: Fibromyalgia Take 1 capsule (60 mg) by mouth inthe morning. 30 capsule 2 07/03/2023 10/01/2023 Activeestradiol 0.1 mg/ml vaginal cream (19 sources)EstrogenStart: 25-82-9031Adiha: 60-00-9514qbyjlkivZ (ESTRACE) 0.01 % (0.1 mg/gram) vaginal cream Indications: Cystocele with second degree uterine prolapse , History of reconstructive repair of rectocele , Urge urinary incontinence Apply peasized amount ( 1.5 g) to vaginal introitus nightly for 4 weeks then 1-2 times per week thereafte 42.5 g 2 02/06/2025 ActiveStart: 44-12-8444valfyqioa (Estrace) 0.1 MG/GM vaginal cream Insert 1.5 g into the vagina 2 (two) times a week 02/06/2025 Activeeszopiclone 1 mg oral tablet (3 sources)Start: 04-10-2024 End: 07-85-7159wygg 1 tablet by mouth at bedtimeeszopiclone (Lunesta) 1 MG tablet Indications: Psychophysiological insomnia Take 1 tablet (1 mg) bymouth at bedtime Take immediately before bedtime 30 tablet 2 04/10/2024 05/27/2024 Discontinued (Ineffective)ferrous sulfate 325 mg oral tablet (2 sources)Start: 36-88-3516efgk 1 tablet by mouth once dailyferrous sulfate 325 mg Tab 325 mg = 1 tab(s), Oral, Daily, Refills(s) 0 Start Date: 05/24/23 Status: Orderedfluconazole 150 mg oral tablet (1 source)Azole AntifungalStart: 08-14-2023 End: 06-26-6749ahra 1 tablet by mouth every weekfluconazole (Diflucan) 150 MG tablet Indications: Antibiotic-induced yeast infection Take 1 tablet (150 mg) by mouth 1 (one) time per week for 14 days 2 tablet 0 08/14/2023 08/28/2023 Active fluticasone propionate 0.05 mg/actuat metered dose nasal spray (20 sources)CorticosteroidStart: 84-55-1135Ryaiv: 65-34-3109djhw 2 spray(s) nasal route in the morningfluticasone propionate (FLONASE) 50 mcg/actuation nasal spray Administer 2 sprays into each nostrilin the morning. 11/18/2024 ActiveStart: 08-12-2024 End: 23-59-0495piqu 2 spray(s) nasal route once dailyfluticasone (Flonase) 50 MCG/ACT nasal spray Indications: Environmental and seasonal allergies Administer 2 sprays into each nostril Daily Shake gently. Before first use, prime pump. After use, cleantip and replace cap. 16 g 5 11/18/2024 Activelactulose 667 mg/ml oral solution (4 sources)Osmotic LaxativeStart: 03-06-2024 End: 72-50-4124line 20 g by mouth at bedtimelactulose (Chronulac) 10 GM/15ML solution Indications: Constipation, unspecified constipation type Take 30 mL (20 g) by mouth in the morning and 30 mL (20 g) before bedtime. Do all this for 10 days. 600 mL 03/06/2024 03/16/2024 Activelansoprazole 30 mg delayed release oral capsule (20 sources)Proton Pump InhibitorStart: 12-21-2024 End: 38-08-6664zgfjeplembch (Prevacid) [address] capsule Take 15 mg by mouth in the morning. Take before meals. 12/21/2024 01/06/2025 Discontinued (Therapy completed)Start: 05-24-2023 End: 12-77-1396Ysyxyojsukts Activemeloxicam 15 mg oral tablet (20 sources)Nonsteroidal Anti-inflammatory DrugStart: 65-48-1375Wemnzbrcz Active 24 hr mirabegron 50 mg extended release oral tablet (2 sources)beta3-Adrenergic AgonistStart: 54-36-3219plrq 1 tablet by mouth once dailyStart: 26-06-0302rmsr 1 tablet by mouth every twenty-four hours [...] tablet (20 sources)Proton Pump InhibitorStart: 11-20-2024 End: 79-29-5821gyxd 1 tablet by mouth once dailypantoprazole (ProtoNix) 40 MG EC tablet Indications: Gastroesophageal reflux disease, unspecified whether esophagitis present Take 1 tablet (40 mg) by mouth Daily Do not crush, chew, or split. 90 tablet 11/20/2024 02/26/2025 Discontinued (Ineffective)Start: 02-29-2024 End: 14-70-5223dddk 1 tablet by mouth once dailypantoprazole (ProtoNix) 40 MG EC tablet Indications: Gastro-esophageal reflux disease without esophagitis Take 1 tablet (40 mg) by mouth Daily 90 tablet 02/29/2024 08/12/2024 Discontinued (Therapy completed)pregabalin (1 source)Pregabalin Activesucralfate 1000 mg oral tablet (20 sources)Aluminum ComplexStart: 17-51-3985knlv 1 tablet by mouth once before mealtimeStart: 02-26-2024 End: 51-49-7479alsf 1 tablet by mouth every six hours as neededsucralfate (Carafate) 1 g tablet Take 1 g by mouth every 6 (six) hours if needed 02/26/2024 08/12/2024 Discontinued (Therapy completed)sulfamethoxazole 800 mg / trimethoprim 160 mg oral tablet (11 sources)Dihydrofolate Reductase Inhibitor Antibacterial, Sulfonamide AntimicrobialStart: 11-14-2024 End: 56-91-5161aqul 1 tablet by mouth every twelve hours for urinary tract infection and urinary tract infectionsulfamethoxazole-trimethoprim (Bactrim DS) 800-160 MG per tablet Indications: UTI (urinary tract infection), uncomplicated Take 1 tablet by mouth every 12 (twelve) hours for 7 days 14 tablet 11/14/2024 11/21/2024 ActiveSyringe 22G X 3/4 3 ML misc (1 source)Start: 08-14-2023 End: 00-97-9285Bczvwwu 22G X 3/4 3 ML misc Indications: B12 deficiency 1 each every 7 (seven) days 4 each 0 08/14/2023 09/13/2023 Activevitamin b12 1 mg oral tablet (20 sources)Vitamin D04Bleci: 38-81-1740nmuw 1 tablet by mouth once dailyStart: 48-09-9676yovfdo 1000 ug by intramuscular injection every week, then inject 1000 ug by intramuscular injection every monthCyanocobalamin (B-12 Compliance Injection) 1000 MCG/ML kit Indications: B12 deficiency 1000 mcg injection IM injections once weekly for 4 weeks, then 1000 mcg IM injection once a month 6 kit 0 08/04/2023 ActiveStart: 07-04-2023 End: 67-16-5529iegv 1 tablet by mouth in the morningcyanocobalamin (Vitamin B- 12) 1000 MCG tablet Indications: B12 deficiency Take 1 tablet (1,000 mcg)by mouth in the morning. 30 tablet 2 07/04/2023 10/02/2023 Activezolpidem tartrate 10 mg oral tablet (20 sources)gamma-Aminobutyric Acid-ergic AgonistStart: 23-08-5841Bjisa: 07-29-2024 End: 48-50-2544Rpkedsuf 10 mg tablet Active MG PO March 25, 2025 12:00am Complies with drug therapyStart: 02-29-2024 End: 69-04-1641ajwggytd (Ambien) 10 MG tablet Indications: Psychophysiological insomnia Take 1 tablet (10 mg) by mouth as needed at bedtime for sleep 30 tablet 06/25/2024 07/25/2024 Discontinued (Reorder)Start: 07-04-2023 End: 93-51-3194trqlyjfr (Ambien) 10 MG tablet Indications: Psychophysiological insomnia Take 1 tablet (10 mg) by mouth as needed at bedtime for sleep 30 tablet 2 07/04/2023 10/02/2023 Active Completed/Discontinued Medications MedicationDrug Class(es)DatesSig (Normalized)Sig (Original)azithromycin 250 mg oral tablet (8 sources)Macrolide AntimicrobialStart: 08-12-2024 End: 09-40-1452rfssvnfcwdcy (Zithromax) 250 MG tablet Indications: Acute non- recurrent maxillary sinusitis 2 pillsday #1, 1 pill day #2-#5 6 tablet 08/12/2024 09/04/2024 Discontinuedcitalopram 40 mg oral tablet (20 sources)Serotonin Reuptake InhibitorStart: 02-29-2024 End: 64-77-4745rpnx 1 tablet by mouth in the morningcitalopram (CeleXA) 40 MG tablet Indications: Bipolar disorder with severe depression (HCC) Take 1 tablet (40 mg) by mouth in the morning. 90 tablet 1 11/20/2024 01/06/2025 Discontinued (Therapy completed)Start: 08-14-2023 End: 48-40-8684qbbx 1 tablet by mouth in the morningcitalopram (CeleXA) 40 MG tablet Indications: Bipolar disorder with severe depression (CMS/HCC) Take 1 tablet (40 mg) by mouth in the morning. 90 tablet 0 08/28/2023 11/26/2023 Active Citalopram Hydrobromide Activecyclobenzaprine hydrochloride 10 mg oral tablet (20 sources)Muscle RelaxantStart: 01-20-2025 End: 96-35-3344Teavxcsuaagygdc 10 mg tablet Discontinued MG PO March 25, 2025 12:00am April 26, 2025 10:25amfexofenadine hydrochloride 180 mg oral tablet (20 sources)Histamine-1 Receptor AntagonistStart: 02-29-2024 End: 55-79-2599Gakohkgvyfwp 180 mg tablet Discontinued MG PO March 25, 2025 12:00am April 07, 2025 8:37pmStart: 52-22-7069pjgy 1 tablet by mouth once dailyAllegra D OTC 24HR 1 tab(s), Oral, Daily, Refill(s) 0 Start Date: 06/07/23 Status: Orderedtake 1 tablet by mouth in the morningfexofenadine (Layla Allergy) 180 MG tablet Take 180 mg by mouth in the morning. 0 Activegabapentin 300 mg oral capsule (20 sources)Anti-epileptic AgentStart: 11-18-2024 End: 91-60-5119Yiydglkrmm 300 mg capsule Discontinued MG PO March 25, 2025 12:00am April 26, 2025 10:25amStart: 06-11-2024 End: 18-86-5438ifma 1 capsule by mouth in the morning, [...] mg oral tablet (20 sources)Start: 02-26-2024 End: 29-35-0737ywyc 1 tablet by mouth every six hours as neededhyoscyamine (Anaspaz,Levsin) 0.125 MG tablet Take 0.125 mg by mouth every 6 (six) hours if needed 02/26/2024 08/12/2024 Discontinued (Therapy completed)lamoTRIgine 25 mg oral tablet (19 sources)Mood Stabilizer, Anti-epileptic AgentStart: 01-22-2025 End: 77-33-4944geueINXmtya (LaMICtal) 25 MG tablet Indications: Bipolar disorder with severe depression (HCC) Take1 tablet (25 mg) by mouth Daily for 7 days 1 pill at bedtime for 7 weeks then stop medication 01/22/2025 02/24/2025 Discontinued (Therapy completed)Start: 01-06-2025 End: 14-16-0043fvegKXUtkpo (LaMICtal) 25 MG tablet Indications: Bipolar disorder with severe depression (HCC) 1 pill at bedtime for 2 weeks, then increase to 1 pill twice a day 60 tablet 01/06/2025 Activemagnesium citrate 58.2 mg/ml oral solution (20 sources)Start: 02-26-2024 End: 17-46-7720mbil 296 mL by mouth once dailyCVS Magnesium Citrate oral solution Take 296 mL by mouth Daily 02/26/2024 08/12/2024 Discontinued (Therapy completed)ondansetron 4 mg disintegrating oral tablet (20 sources)Serotonin-3 Receptor AntagonistStart: 02-26-2024 End: 00-51-9919rjmk 1 tablet by mouth every four hours as needed for nausea ondansetron ODT (Zofran-ODT) 4 MG disintegrating tablet Take 4 mg by mouth every 4 (four) hours if needed for nausea 02/26/2024 08/12/2024 Discontinued (Therapy completed)24 hr oxybutynin chloride 10 mg extended release oral tablet (20 sources)Cholinergic Muscarinic Antagonist End: 61-20-5200agzs 1 tablet by mouth every twenty-four hours in the morning oxybutynin XL (Ditropan XL) 10 MG 24 hr tablet Take 10 mg by mouth in the morning. 08/12/2024 Discontinued (Therapy completed)phentermine hydrochloride 37.5 mg oral tablet (20 sources)Sympathomimetic Amine AnorecticStart: 07-31-2024 End: 22-94-2592gdds 1 tablet by mouth before mealtimephentermine (Adipex-P) 37.5 MG tablet Indications: BMI 32.0-32.9,adult , Class 1 obesity due to excess calories without serious comorbidity in adult, unspecified BMI Take 1 tablet (37.5 mg) by mouth in the morning. Take before meals. 30 tablet 11/20/2024 01/06/2025 Discontinued (Therapy completed)polyethylene glycol 3350 10840 mg powder for oral solution (9 sources)Osmotic LaxativeStart: 02-28-2024 End: 25-17-8955qshbumwumbyv glycol, PEG, 3350 (MiraLax) 17 GM/SCOOP powder Indications: Constipation, unspecified constipation type Take 17 g by mouth Daily 578 g 2 02/28/2024 06/09/2024 Expiredsod sulf-pot chloride-mag sulf 1.479-0.188- 0.225 gram tablet (3 sources)Start: 02-13-2023 End: 44-08-0510auh sulf-pot chloride-mag sulf 1.479-0.188- 0.225 gram tablet See instructional sheet given by office. Patient was given a [employer] coupon voucher to use, this is not to be ran through patients insurance. 24 tablet 02/13/2023 2025 DiscontinuedStart: 66-94-3577xuk sulf-pot chloride-mag sulf 1.479-0.188- 0.225 gram tablet See instructional sheet given by office. Patient was given a [employer] coupon voucher to use, this is not to be ran through patients insurance. 24 tablet 02/13/2023 Xnrykn77 hr tolterodine tartrate 4 mg extended release oral capsule (20 sources)Cholinergic Muscarinic AntagonistStart: 12-21-2024 End: 07-52-8254quom 1 capsule by mouth every twenty-four hoursTolterodine 4 mg capsule,extended release 24hr Discontinued MG PO March 25, 2025 12:00am May 05, 2025 2:25pmStart: 05-24-2023 End: 98-19-0798dnwh 1 capsule by mouth once dailytolterodine LA (Detrol LA) 4 MG 24 hr capsule Take 4 mg by mouth Daily 12/21/2024 ActiveTolterodine Tartrate ER Active Problems Active Problems Problem ClassificationProblemDateDocumented DateEpisodic/ChronicAbdominal pain (20 sources)Left upper quadrant pain; Translations: [Left upper quadrant pain] Onset: 50-74-9189LcgtoqgoTxnymvf disorders (20 sources)Anxiety; Translations: [Generalized anxiety disorder]Onset: 659567-87-7617YngcqmaYofbagr dysrhythmias (2 sources)Palpitations; Translations: [Palpitations]Onset: 76-92-1658Jkhpinse Deficiency and other anemia (20 sources)Iron deficiency anemia; Translations: [Iron deficiency anemia, unspecified]Onset: 36-98-7978RtdmmhplBocxgtgngp and other anemia (10 sources)Iron deficiency anemia secondary to inadequate dietary iron intake; Translations: [Other iron deficiency anemias]76-77-7649XftosycrEwdjgjaeup disorders (20 sources)Gastroesophageal reflux disease; Translations: [Gastro-esophageal reflux disease without esophagitis]Onset: 713565-50-5146PshvylePedfaapijc disorders (1 source)Esophageal disordersGenitourinary symptoms and ill-defined conditions (6 sources)Urge incontinence of urine; Translations: [Urge incontinence]Onset: 482842-90-8384WpruumjXqhaojuipltlg symptoms and ill-defined conditions (1 source)Incomplete emptying of bladder; Translations: [Retention of urine, unspecified]61-43-5199OeyyzuhwFuaoyfrc; including migraine (20 sources)Menstrual status migrainosus; Translations: [Menstrual migraine, not intractable, with status migrainosus]Onset: 893382-09-8112HoajnmjBxdgrah and fatigue (20 sources)Malaise and fatigue; Translations: [Other malaise]Onset: 08-12-2024 20-27-7975WchomirqKxruagbtuk disorders (20 sources)Menopausal flushing; Translations: [Menopausal and female climacteric states]Onset: 085839-50-3653QklhuxaNgvwhigkhfxmq mental health disorders (20 sources)Psychophysiologic insomnia; Translations: [Psychophysiologic insomnia]Onset: 830103-33-1302WdbdvizCdcm disorders (20 sources)Bipolar disorder; Translations: [Bipolar affective disorder, current episode depression]Onset: 07-04-2023 Resolved: 582265-33-5849TipayxoTojgrah (20 sources)Opportunistic mycosis; Translations: [Candidiasis, unspecified] Onset: 534641-11-7532BsqaehbrNbvbakwcsnl deficiencies (20 sources)Cobalamin deficiency; Translations: [Deficiency of other specified B group vitamins]Onset: 451685-56-3495AyygncfiOauhrbactmjbux (5 sources)Primary osteoarthritis, left ankle and foot; Translations: [PRIMARY OSTEOARTHRITIS LT ANK FOOT]Onset: 85-94-4339HoywdsyZeped acquired deformities (1 source)Contracture, left ankle; Translations: [CONTRACTURE LEFT ANKLE]Onset: 82-53-6779NxogmioVkogc aftercare (1 source)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; Translations: [OTH CAR FERRY CAPTAIN CURRENT DRUG THERAPY]Onset: 46-47-3545AjawlkihGqxwl connective tissue disease (4 sources)Pain in left foot; Translations: [PAIN IN LEFT FOOT]Onset: 05-31-2022 EpisodicOther connective tissue disease (20 sources)Fibromyalgia; Translations: [Fibromyalgia]Onset: 07-04-2023 89-75-8182YsdwhgcnHayzt connective tissue disease (20 sources)Plantar fasciitis of right foot; Translations: [Plantar fascial fibromatosis]Onset: 549083-30-2600DfxfmgvcQqekj diseases of bladder and urethra (20 sources)Overactive bladder; Translations: [Overactive bladder]Onset: 11-13-2023 Resolved: 882335-31-7453XxcxfgoBokon diseases of bladder and urethra (20 sources)Detrusor overactivity; Translations: [Overactive bladder]Onset: 582631-61-9969LnbmcmsPfijh diseases of bladder and urethra (20 sources)Overactive bladder due to prolapse of female genital organ; Translations: [Overactive bladder]Onset: 073524-59-9085OtjzfiwNsona gastrointestinal disorders (2 sources)Bariatric surgery status; Translations: [BARIATRIC SURGERY STATUS] Onset: 48-57-0184UgoflnmaLqrfp gastrointestinal disorders (20 sources)History of bypass of stomach; Translations: [Bariatric surgery status]Onset: 850880-27-9019LllxkfptIutin gastrointestinal disorders (1 source)Constipation, unspecified; Translations: [Constipation, unspecified] Onset: 77-76-3165YkyryegeUjdui gastrointestinal disorders (20 sources)Constipation; Translations: [Constipation, unspecified]Onset: 080336-12-7330RbadzgqdVgcne gastrointestinal disorders (20 sources)History of gastrointestinal bleed; Translations: [Personal history of other diseases of the digestive system]Onset: 108826-15-3399Htadvqfw Other gastrointestinal disorders (2 sources)Abdominal bloating; Translations: [Abdominal distension (gaseous)] 97-68-6261OsifdvctLcsmi lower respiratory disease (2 sources)Other forms of dyspnea; Translations: [Other forms of dyspnea]Onset: 38-95-4958YkzxiwyuJkmdu lower respiratory disease (3 sources)Dyspnea; Translations: [Shortness of breath]69-57-0803InuroippKgaqc nervous system disorders (6 sources)Carpal tunnel syndrome of right wrist; Translations: [Carpal tunnel syndrome, right upper limb]66-98-3634VwclavdSdffo nervous system disorders (6 sources)Right-sided piriformis syndrome; Translations: [Lesion of sciatic nerve, right lower limb]01-80-0497EygqityEygaw nervous system disorders (1 source)Carpal tunnel syndrome, right upper limb; Translations: [Carpal tunnel syndrome, right upper limb]Onset: 78-17-5391SclveufDunax non-traumatic joint disorders (1 source)Osteophyte, left foot; Translations: [OSTEOPHYTE LEFT FOOT]Onset: 66-68-2273IddgylyrDvpph nutritional; endocrine; and metabolic disorders (2 sources)Obesity, unspecified; Translations: [Obesity, unspecified]Onset: 92-93-8051JivsacvIsafz nutritional; endocrine; and metabolic disorders (20 sources)Body mass index 30+ - obesity; Translations: [Body mass index (BMI) 34.0-34.9, adult]Onset: 07-31-2024 Resolved: 537564-91-1697BcpklxrGespq nutritional; endocrine; and metabolic disorders (2 sources)Ujhcuqf82-97-7741DyyxmhlEalpc nutritional; endocrine; and metabolic disorders (20 sources)Obesity caused by energy imbalance; Translations: [Class 1 obesity due to excess calories without serious comorbidity in adult, unspecified BMI] Onset: 080498-98-8490GtvfghcUiqfr screening for suspected conditions (not mental disorders or infectious disease) (20 sources)Abnormal electrocardiogram [ECG] [EKG]; Translations: [Patient encounter status]Onset: 02-08-2023 Resolved: 71-01-7667KrxnlsbiVuwro upper respiratory disease (20 sources)Allergic disposition; Translations: [Other allergic rhinitis]Onset: 710878-31-2891HxmsuggLwopu upper respiratory disease (2 sources)Seasonal allergy; Translations: [Other seasonal allergic rhinitis] 62-36-0962XsbbthvJbbuwbuquo and visceral atherosclerosis (3 sources)Peripheral vascular disease, unspecified; Translations: [Peripheral vascular disease]Onset: 514759-75-4543EildhdlKtmgmzkf of female genital organs (20 sources)Disorder of rectum; Translations: [Rectocele]Onset: 06-30-2023 20-73-9337VqcrpjwRlmgbkjs codes; unclassified (20 sources)Sleep apnea; Translations: [Sleep apnea, unspecified]Onset: 523846-47-9160FpfayexWhaqqxxq codes; unclassified (1 source)Acquired absence of other specified parts of digestive tract; Translations: [ACQ ABSENCE OTH PART DIGESTV TRACT]Onset: 49-78-8648Lyxfpaka Residual codes; unclassified (2 sources)Localized edema; Translations: [Localized edema]Onset: 02-08-2023 EpisodicResidual codes; unclassified (1 source)Other specified postprocedural states; Translations: [Other specified postprocedural states]Onset: 36-58-0374JfcapaqiGrqtxwjukho; intervertebral disc disorders; other back problems (20 sources)Lumbosacral stenosis; Translations: [Spinal stenosis, lumbosacral region]Onset: 703909-81-2713VobyieemWesecunvj-otmonof disorders (20 sources)Nicotine dependence, cigarettes, uncomplicated; Translations: [Nicotine dependence, unspecified, uncomplicated]Onset: 03-22-2022 Resolved: 65-56-4937WlqcwvqItednfeqmfuh (4 sources)CONTACT W/AND (SUSP) EXPOS COVID-19; Translations: [CONTACT W/AND (SUSP) EXPOS COVID-19]Onset: 39-15-6302Eczrrkvixmgu (2 sources)History of bypass of rdbuvpw72-84-5908Unabvdizcooz (20 sources)Patient on antidepressant monitoring planOnset: Unclassified (1 source)New PatientOnset: 02-06-2025 Past or Other Problems Problem ClassificationProblemDateDocumented DateEpisodic/ChronicAdjustment disorders (20 sources)Stress and adjustment reaction; Translations: [Reaction to severe stress, unspecified]Onset: 03-18-2024 Resolved: 72-34-1652AkmypikQhmhchqmuzshni/social admission (20 sources)Stress; Translations: [Finding relating to psychosocial functioning] Onset: 08-12-2024 Resolved: 808933-20-4375JknwcgosGwjwmguq; convulsions (20 sources)Neurological finding; Translations: [Unspecified convulsions]Onset: 01-22-2024 Resolved: 847106-65-2183JdxolbvxLbnsojwirayvo and screening for infectious disease (1 source)Contact with and (suspected) exposure to other viral communicable diseasesOnset: 08-30-2021 Resolved: 98-47-3260WewnkonrXvgrpmosz disorders (20 sources)Menorrhagia; Translations: [Excessive and frequent menstruation with regular cycle]Onset: 06-30-2023 Resolved: 223317-31-8488PughejlOezp disorders (20 sources)Mood disordersOnset: 08-03-2023 Resolved: Other circulatory disease (1 source)Other specified symptoms and signs involving the circulatory and respiratory systems; Translations:[OTH SPEC SX SIGNS INVLV CIRC RS]Onset: 68-41-2820AmqgubupSwbtd female genital disorders (20 sources)Female genital organ symptoms; Translations: [Unspecified condition associated with female genital organs and menstrual cycle]Onset: 08-12-2024 Resolved: 964001-67-1820HzsmwznfPsnuc upper respiratory infections (20 sources)Acute upper respiratory infection, unspecified; Translations: [Acute upper respiratory infection]Onset: 08-30-2021 Resolved: 12-98-5447LimnuhrvQfteco media and related conditions (20 sources)Acute suppurative otitis media without spontaneous rupture of ear drum; Translations: [Acute suppurative otitis media without spontaneous rupture of ear drum, bilateral]Onset: 01-08-2024 Resolved: 105923-87-6645NicblsuaHcjlmidm codes; unclassified (20 sources)Insomnia; Translations: [Insomnia, unspecified]Onset: 07-04-2023 92-41-1095PkgziltxBmpx and subcutaneous tissue infections (20 sources)Abscess of groin; Translations: [Cutaneous abscess of groin]Onset: 08-15-2023 Resolved: 101742-23-1609LurnglvuVmgaxnximbsi (1 source)CONTACT W/AND (SUSP) EXPOS COVID-19; Translations: [CONTACT W/AND (SUSP) EXPOS COVID-19]Onset: 10-46-3307Mstqtukztdym (20 sources)Smoker; Translations: [Smoking]Onset: 08-12-2024 Resolved: 407401-49-6747Lvicgpe tract infections (20 sources)Urinary tract infectious disease; Translations: [Urinary tract infection, site not specified]Onset: 11-14-2024 Resolved: 233620-38-9984Cdjvrqll Results Test NameValueInterpretationReference RangeFacilityBasophils Auto (Bld) [#/Vol] Ordered By: Pascale Arana on 48-38-0662Fqixdhycs (Bld) [#/Vol]0.1 10 3/uL0.0-0.1 [facility] HospitalBasophils/100 WBC Auto (Bld)Ordered By: Pascael Arana on 48-89-2660Cicwjzget/100 WBC (Bld)1.1 %0.2-2.0[facility] HospitalCholesterol in LDL Calc [Mass/Vol]Ordered By: Pascale Arana on 67-32-3957Myywhqqtadh in LDL [Mass/Vol]52.2 mg/dLWvumedicine Harrison Community HospitalComment on above:<100 mg/dl OUCQSOU347-768 mg/dl NEAR OR ABOVE PASYRHH845- 159 mg/dl BORDERLINE MHZL037-696 mg/dl HIGH>190 mg/dl VERY HIGHCholesterol in VLDL Calc [Mass/Vol]Ordered By: Pascale Arana on 94-08-9332Prguutuyvjo in VLDL [Mass/Vol]12.8 mg/dLWvumedicine Harrison Community HospitalEosinophils/100 WBC Auto (Bld)Ordered By: Pascale Arana on 02-04-9817Ezntkmqplym/100 WBC (Bld)6.2 % 0.9-7.0[facility] HospitalErythrocyte distribution width Auto (RBC) [Ratio]Ordered By: Pascale Arana on 68-44-9558Fatxexldces distribution width (RBC) [Ratio]12.6 %11.0-15.0[facility] HospitalGlobulin Calc (S) [Mass/Vol]Ordered By: Pascale Arana on 39-08-0080Ozwpxrrt (S) [Mass/Vol]3.0 g/dLWvumedicine Harrison Community HospitalGlomerular filtration rate (GFR) estimation in non- AmericanOrdered By: Pascale Arana on 05-05-2025 GFR/1.73 sq M.predicted among non-blacks MDRD (S/P/Bld) [Vol rate/Area] mL/min/{1.73_m2}>=60 mL/min/1.73m 2FBrown Memorial HospitalHematocrit Auto (Bld) [Volume fraction]Ordered By: Pascale Arana on 11-50-5762Nvuaywvcpx (Bld) [Volume fraction]40.7 %36.0-48.0[facility] Hemoglobin [Mass/volume] in BloodOrdered By: Pascale Arana on 05-05-2025 Hemoglobin (Bld) [Mass/Vol]13.6 g/dL12.0-16.0[facility] Iron binding capacity [Mass/volume] in Serum or PlasmaOrdered By: Pascale Arana on 82-79-7186Mfjf binding capacity [Mass/Vol]303.0 ug/dL250.0-450.0[facility] HospitalIron saturation [Mass Fraction] in Serum or PlasmaOrdered By: Pascale Arana on 09-31-4707Kqyj saturation [Mass fraction]27.4 %[facility] HospitalLaboratory - Chemistry and Chemistry - challengeOrdered By: Pascale Arana on 56-58-4508Dinduoi [Mass/Vol]3.6 g/dL3.4-5.0[facility] HospitalALP [Catalytic activity/Vol]95 U/W61-475NzbsfypmmWvumedicine Harrison Community HospitalALT [Catalytic activity/Vol]25 U/U01-41ZnzkqniqiWvumedicine Harrison Community HospitalAST [Catalytic activity/Vol]23 U/H57-97CbezmwajeWvumedicine Harrison Community HospitalBilirubin [Mass/Vol]0.3 mg/dL0.2-1.0[facility] Calcium [Mass/Vol]8.7 mg/dL8.5-10.1FBrown Memorial HospitalChloride [Moles/Vol]105 mmol/M60-226PlppqsxxoWvumedicine Harrison Community HospitalCholesterol [Mass/Vol]116 mg/dL<=200[facility] HospitalCholesterol in HDL [Mass/Vol]51 mg/jA88-43VwmdncfoeWvumedicine Harrison Community HospitalComment on above:> or =60 mg/dl - LOW CARDIOVASCULAR RISK<40 mg/dl - HIGH CARDIOVASCULAR RISKCO2 [Moles/Vol]29.9 mmol/L21.0-32.0[facility] HospitalCreatinine [Mass/Vol]0.62 mg/dL0.55-1.02[facility] HospitalFerritin [Mass/Vol]30.0 ng/mL8.0-252.0[facility] HospitalGFR/1.73 sq M.predicted MDRD (S/P/Bld) [Vol rate/Area]mL/min/{1.73_m2}>=60 mL/min/1.73m 2 [facility] HospitalGlucose [Mass/Vol]77 mg/sD77-725IgkstzdprWvumedicine Harrison Community HospitalIron [Mass/Vol]83.0 ug/dL50.0-170.0[facility] HospitalPotassium [Moles/Vol]4.0 mmol/L3.5-5.1FBrown Memorial HospitalProtein [Mass/Vol]6.6 g/dL6.4-8.2FSelect Medical Specialty Hospital - [facility]man, Incodium [Moles/Vol]144 mmol/C209-972JojzeucvtWvumedicine Harrison Community HospitalTriglyceride [Mass/Vol]64 mg/dL<=150[facility] HospitalUrea nitrogen [Mass/Vol] 16.0 mg/dL7.0-18.0[facility] HospitalUrea nitrogen/Creatinine [Mass ratio]25.8 mg/mgWvumedicine Harrison Community HospitalBilirubin Ql (U)Negative NEGATIVEWvumedicine Harrison Community HospitalGlucose (U) [Mass/Vol]NegativeNEGATIVE [facility] HospitalKetones Ql (U)NegativeNEGATIVEWvumedicine Harrison Community HospitalpH (U)6.0 [pH]5.0-9.0[facility] Specific gravity (U) [Rel density]<=1.881Rsqylswx6.005-1.025[facility] HospitalUrobilinogen Qn (U)0.2 {Genie'U}/dL0.2-1.0[facility] HospitalLaboratory - Hematology and Cell countsOrdered By: Pascale Arana on 38-95-0431Yafoagfs granulocytes/100 WBC (Bld)0.1 %0.0-0.5FBrown Memorial HospitalLaboratory - Specimen informationOrdered By: Pascale Arana on 12-16-4468Fsuefqvaiy (U)CLEARCLEARFBrown Memorial HospitalColor (U)LT. YELLOWYELLOWWvumedicine Harrison Community HospitalLaboratory - UrinalysisOrdered By: Pascale Arana on 00-99-4374Uupddsrcw esterase Test strip Ql (U)NegativeNEGATIVE [facility] HospitalMucus Ql (Urine sed)NONE SEENNONE SEENWvumedicine Harrison Community HospitalNitrite Ql (U)NegativeNEGATIVEWvumedicine Harrison Community HospitalProtein Ql (U)NegativeNEG/TRACEWvumedicine Harrison Community HospitalLeukocytes [#/volume] corrected for nucleated erythrocytes in Blood by Automated coun Ordered By: Pascale Arana on 88-40-1059UET corrected for nucl RBC Auto (Bld) [#/Vol]7.0 10 3/uL4.0-11.0[facility] HospitalLymphocytes Auto (Bld) [#/Vol]Ordered By: Pascale Arana on 64-50-3598Scbvrbzhinq (Bld) [#/Vol]2.7 10 3/uL1.2-3.8[facility] HospitalLymphocytes/100 WBC Auto (Bld) Ordered By: Pascale Arana on 34-99-1569Ghyquqagxkw/100 WBC (Bld)39.2 %20.5-60.0 [facility] Auto (RBC) [Entitic mass]Ordered By: Pascale Arana on 49-87-6557ZDM (RBC) [Entitic mass]32.2 pg26.7-34.0[facility] HospitalMC Auto (RBC) [Mass/Vol]Ordered By: Pascale Arana on 05-05-2025 MCHC (RBC) [Mass/Vol]33.4 g/dL29.9-35.2FBrown Memorial HospitalMCV Auto (RBC) [Entitic vol]Ordered By: Pascale Arana on 62-76-0902NHB (RBC) [Entitic vol]96.4 fL81.0-99.0[facility] HospitalMonocytes Auto (Bld) [#/Vol]Ordered By: Pascale Arana on 75-56-9243Zxsnfleez (Bld) [#/Vol]0.4 10 3/uL 0.3-0.8[facility] HospitalMonocytes/100 WBC Auto (Bld)Ordered By: Pascale Arana on 58-83-8399Npkezlnuv/100 WBC (Bld)5.2 %1.7-12.0[facility] HospitalNeutrophils Auto (Bld) [#/Vol]Ordered By: Pascale Arana on 00-25-1982Fnwzmkeahsj (Bld) [#/Vol]3.4 10 3/uL1.4-6.5FBrown Memorial HospitalNeutrophils/100 WBC Auto (Bld)Ordered By: Pascale Arana on 69-00-2625Bbravprosny/100 WBC (Bld)48.2 %43.0-75.0[facility] HospitalNo Panel InformationOrdered By: Pascale Arana on 679558-Xqmcfkm Vitamin D Total69.7 ng/mLWvumedicine Harrison Community HospitalComment on above:<20 ng/mL Vit D wlisfmoai53-<30 ng/mL Vit D kgrlddhpavdm89-169 ng/mL Vit D sufficient>100 ng/mL Potential ToxicityEosinophils # (Auto)0.4 10 3/uL0.0-0.7 [facility] HospitalImmature Granulocyte # (Auto)0.01 10 3/uL 0.00-0.03[facility] HospitalUrine BacteriaTRACE #/HPFAbnormalNONE SEENWvumedicine Harrison Community HospitalUrine Occult BloodNegativeNEGATIVEWvumedicine Harrison Community HospitalUrine Other CastsNONE SEEN #/LPFNONE SEENWvumedicine Harrison Community HospitalUrine Other CrystalsNone Seen #/HPFNone [facility] CampusUrine RBCNONE SEEN #/HPF0-2FBrown Memorial HospitalUrine Squamous Epithelial CellsFEW #/LPFAbnormalNONE/RAREWvumedicine Harrison Community HospitalUrine WBCNONE SEEN #/HPFNONE [facility] HospitalPlatelet mean volume Auto (Bld) [Entitic vol]Ordered By: Pascale Arana on 64-31-3111Dqtflnfq mean volume (Bld) [Entitic vol]9.7 fL9.5-13.5 [facility] HospitalPlatelets Auto (Bld) [#/Vol]Ordered By: Pascale Arana on 50-89-4683Mzcxovhax (Bld) [#/Vol]252 10 3/wC170-881GhmpahkzoWvumedicine Harrison Community HospitalRBC Auto (Bld) [#/Vol]Ordered By: Pascale Arana on 25-88-4287SXW (Bld) [#/Vol]4.22 10 6/uL4.20-5.40Pomerene Hospitalerum or plasma albumin/globulin mass ratioOrdered By: Pascale Arana on 02-59-2455Idfxjwc/Globulin [Mass ratio]1.2 {ratio}[facility]omerene Hospitalerum or plasma anion gap determinationOrdered By: Pascale Arana on 69-47-2603Cqwsh gap [Moles/Vol]13.1 mmol/LFSelect Medical Specialty Hospital - Boardman, Incerum or plasma total cholesterol/high density lipoprotein (HDL) cholesterol mass rat Ordered By: Pascale Arana on 72-49-8519Smoyclzslsv.total/Cholesterol in HDL [Mass ratio]2.3 {ratio}[facility] HospitalComment on above:3.3 - 4.4 LOW RISK4.4 - 7.1 AVERAGE RISK7.1 - 11.0 MODERATE RISK>11.0 HIGH RISKALL CBC WITH AUTO DIFFon 43-75-7017GKYHBNSNK ABSOLUTE AUTO0.1[facility] Basophils/100 WBC (Bld)1.2 %0.2 - 2.0 %[facility] HealthcareEosinophils/100 WBC (Bld) 7.9 %High0.9 - 7.0 %[facility] HealthcareErythrocyte distribution width (RBC) [Ratio] 15.3 %High11.0 - 15.0 %[facility] HealthcareHematocrit (Bld) [Volume fraction]37.2 % 36.0 - 48.0 %[facility] HealthcareHemoglobin (Bld) [Mass/Vol]11.8 g/dLLow12.0 - 16.0 g/dLNOPR HealthcareIMMATURE GRANULOCYTES ABS AUTO0.02N[facility] HealthcareImmature granulocytes/100 WBC (Bld)0.3 %0.0 - 0.5 %NOM HealthcareInterpretation and review of laboratory resultsAbnormalNOPR HealthcareLYMPHOCYTES ABSOLUTE AUTO2.3 NOM HealthcareLymphocytes/100 WBC (Bld)35.2 %20.5 - 60.0 %[facility] HospitalH (RBC) [Entitic mass]31.1 pg26.7 - 34.0 pgNOUniversity Health Truman Medical CenterMCHC (RBC) [Mass/Vol] 31.7 g/dL29.9 - 35.2 g/dLNOUniversity Health Truman Medical CenterMCV (RBC) [Entitic vol]98.2 fL81.0 - 99.0 fLNOPR HealthcareMONOCYTES ABSOLUTE AUTO0.4N[facility] HealthcareMonocytes/100 WBC (Bld)5.5 %1.7 - 12.0 %[facility] HealthcareNEUTROPHILS ABSOLUTE AUTO3.3[facility] Neutrophils/100 WBC (Bld)49.9 %43.0 - 75.0 %NOM HealthcarePlatelet mean volume (Bld) [Entitic vol]10 fL9.5 - 13.5 fLNOMS [facility] Main CampusTBH EO #0.5[facility] TBH VIG765ILTJ [facility] RBC3.79LowNOMS [facility] Healthcare Main CampusTB WBC6.6[facility] CLINISYNCNOUniversity Health Truman Medical CenterSEGMENTAL BLOOD PRESSUREon 99-93-5978Ade[place] [address] Cardiology Report Signed Patient: TALIA RUTHERFORD MR#: [id number] : 1970 Acct:[id number] Age/Sex: 54 / F ADM Date: 02/26/25 Loc: CARD Attending Dr: Kajal LAZAR Ordering Physician: Kajal Escobedo Date of Service: 02/26/25 Procedure(s): CA segmental UE or LE PONCE Accession Number(s): [id number] cc: Pascale Arana NP; Kajal Escobedo [facility] Test Date: 2025-02-26 Pat Name: TALIA RUTHERFORD Department: Room: - Gender: Female Hide Curer: Cari Nichole : 1970 Requested By: Kajal Escobedo Order Number: [id number] Reading MD: SCOTT PARKINSON M.D. Interpretive Statements [...] 02/27/25 0907 02/27/25 09 DD/ 1534 TD/TT: Microbiology Manager:TBHRadiology, Radiologist, - 02/27/2025 [place] [address] Cardiology Report Signed Patient: TALIA RUTHERFORD MR#: [id number] : 1970 Acct:[id number] Age/Sex: 54 / F ADM Date: 02/26/25 Loc: CARD Attending Dr: Kajal LAZAR Ordering Physician: Kajal Escobedo Date of Service: 02/26/25 Procedure(s): CA segmental UE or LE PONCE Accession Number(s): [id number] cc: Pascale Arana NP; Kajal Escobedo [facility] Test Date: 2025-02-26 Pat Name: TALIA RUTHERFORD Department: Room: - Gender: Female Hide Curer: Cari Nichole : 1970 Requested By: Kajal Escobedo Order Number: [id number] Reading MD: SCOTT PARKINSON M.D. Interpretive Statements [...] 02/27/25 0907 02/27/25 0907 DD/ 1534 TD/TT: Microbiology Manager: CHERYL MonteroSEENTAL BLOOD PRESSUREOrdered By: Radiologist Radiology on 48-33-1333XHKW [employer] (Closed) Work Phone: SEGMENTAL BLOOD PRESSUREon 42-81-7967Ulcapstml Study observation (narrative)CHERYL MonteroXR FOOT LT MIN 3Von 60-62-6918Pdf[address] [address] XRay Report Signed Patient: TALIA RUTHERFORD MR#: [id number] : 1970 Acct:[id number] Age/Sex: 54 / F ADM Date: 02/19/25 Loc: RAD Attending Dr: Kajal [place] Ordering Physician: Kajal Escobedo Date of Service: 02/19/25 Procedure(s): XR foot LT min 3V Accession Number(s): [id number] cc: Pascale Arana NP; Kajal Escobedo The [place] [id number] Patient Name: TALIA RUTHERFORD MRN: [facility]:[id number] date: 1970 Sex: F Assigned Patient Location: RAD Current Patient Location: RAD Accession/Order Number: [id number] Exam Date: 02/19/2025 10:39 Report Date: 02/19/2025 [...] 02/19/2025 3:03 PM Dictation Location: [place] [address] Electronically authenticated by: [id number] Y Date: 02/19/2025 15:03 Dictated By: Merlin Massey M.D. Signed By: 02/19/25 1506 DD/ 1503 TD/TT: Microbiology Manager:SILVINAHRadiology, Radiologist, MD - 02/19/2025 [place] [address] XRay Report Signed Patient: TALIA RUTHERFORD MR#: [id number] : 1970 Acct:[id number] Age/Sex: 54 / F ADM Date: 02/19/25 Loc: RAD Attending Dr: Kajal LAZAR Ordering Physician: Kajal Escobedo Date of Service: 02/19/25 Procedure(s): XR foot LT min 3V Accession Number(s): [id number] cc: Pascale Arana NP; Kajal Escobedo [address] [address] Patient Name: TALIA RUTHERFORD MRN: [id number] date: 1970 Sex: F Assigned Patient Location: RAD Current Patient Location: RAD Accession/Order Number: [id number] Exam Date: 02/19/2025 10:39 Report Date: 02/19/2025 [...] Jr. DConsueloOConsuelo 02/19/2025 3:03 PM Dictation Location: [place] [address] Electronically authenticated by: [id number] Y Date: 02/19/2025 15:03 Dictated By: Merlin Massey M.D. Signed By: 02/19/25 1506 DD/ 1503 TD/TT: Microbiology Manager: CHERYL HealthcareRadiology Study observation (narrative)[facility]OM[facility] HealthcareXR FOOT LT MIN 3VOrdered By: Radiologist Radiology on 12-74-5328[facility] Work Phone: MR Cervical spine WO contraston 25-26-0795N[address] [address] Magnetic Resonance Report Signed Patient: TALIA RUTHERFORD MR#: [id number] : 1970 Acct:[id number] Age/Sex: 54 / F ADM Date: 02/04/25 Loc: MRI Attending Dr: Flores Eden M.D. Ordering Physician: Flores Eden M.D. Date of Service: 02/04/25 Procedure(s): MR cervical spine wo con Accession Number(s): [id number] cc: Pascale Arana NP; Flores Eden M.D. [place] [address] Patient Name: TALIA RUTHERFORD MRN: [facility]:[id number] date: 1970 Sex: F Assigned Patient Location: MRI Current Patient Location: Accession/Order Number: [id number] Exam Date: 02/05/2025 12:10 Report Date: 02/05/2025 [...] Uncovertebral spurring greatest right. Moderate right and lfkw-xe-gbiyqahd left-sided neural foraminal narrowing. Mild canal narrowing. C5-6: Broad-based disc bulge with uncovertebral spurring, greatest left. Moderate right-sided moderate to severe left-sided neural foraminal narrowing. Mild central canal stenosis. C6-C7: Broad-based disc osteophyte complex with uncovertebral spurring. Jtyo-tc-twlwnlhk right moderate severe left neural foraminal narrowing. Diwu-ke-vxzourxs canal narrowing. C7-T1: Minimal vertebral hypertrophy. Moderate facet arthropathy. Canal and patent. Mild foraminal narrowing. MR/MR cervical spine wo con IMPRESSION: Overall multilevel degenerative changes with up to rnji-un-gaqbaenh central canal narrowing. Multilevel foraminal encroachment as noted above. Impression dictated by: Mushtaq Antony M.D. 02/05/2025 12:16 PM Dictation Location: [place] [address] Electronically authenticated by: [id number] Y Date: 02/05/2025 12:16 Dictated By: Mushtaq Antony M.D. Signed By: 02/05/25 1218 DD/ 1216 TD/TT: Microbiology Manager:TBHRadiology, Radiologist, MD - 02/05/2025 [place] [address] Magnetic Resonance Report Signed Patient: TALIA RUTHERFORD MR#: [id number] : 1970 Acct:[id number] Age/Sex: 54 / F ADM Date: 02/04/25 Loc: MRI Attending Dr: Flores Eden M.D. Ordering Physician: Flores Eden M.D. Date of Service: 02/04/25 Procedure(s): MR cervical spine wo con Accession Number(s): [id number] cc: Pascale Arana NP; Flores Eden M.D. The [place] [id number] Patient Name: TALIA RUTHERFORD MRN: [id number] date: 1970 Sex: F Assigned Patient Location: MRI Current Patient Location: Accession/Order Number: [id number] Exam Date: 02/05/2025 12:10 Report Date: 02/05/2025 [...] Uncovertebral spurring greatest right. Moderate right and qapf-ao-qhvszbes left-sided neural foraminal narrowing. Mild canal narrowing. C5-6: Broad-based disc bulge with uncovertebral spurring, greatest left. Moderate right-sided moderate to severe left-sided neural foraminal narrowing. Mild central canal stenosis. C6-C7: Broad-based disc osteophyte complex with uncovertebral spurring. Tgxf-yf-spwzxtad right moderate severe left neural foraminal narrowing. Ljqd-fp-lynpukgr canal narrowing. C7-T1: Minimal vertebral hypertrophy. Moderate facet arthropathy. Canal and patent. Mild foraminal narrowing. MR/MR cervical spine wo con IMPRESSION: Overall multilevel degenerative changes with up to uliy-oa-tmnppkow central canal narrowing. Multilevel foraminal encroachment as noted above. Impression dictated by: Mushtaq Antony M.D. 02/05/2025 12:16 PM Dictation Location: [place] [address] Electronically authenticated by: [id number] Y Date: 02/05/2025 12:16 Dictated By: Mushtaq Antony M.D. Signed By: 02/05/25 1218 DD/ 1216 TD/TT: Microbiology Manager: CHERYL HealthcareRadiology Study observation (narrative)[facility] Cervical spine WO contrastOrdered By: Radiologist Radiology on 38-26-6145XLOP [employer] (Closed) Work Phone: LUMBAR SPINE WO CONon 27-78-9057RqpWh[place] [address] Magnetic Resonance Report Signed Patient: TALIA RUTHERFORD MR#: [id number] : 1970 Acct:[id number] Age/Sex: 54 / F ADM Date: 02/04/25 Loc: MRI Attending Dr: Flores Eden M.D. Ordering Physician: Flores Eden M.D. Date of Service: 02/04/25 Procedure(s): MR lumbar spine wo con Accession Number(s): [id number] cc: Pascale Arana NP; Flores Eden M.D. [place] [id number] Patient Name: TALIA RUTHERFORD MRN: [id number] date: 1970 Sex: F Assigned Patient Location: MRI Current Patient Location: Accession/Order Number: [id number] Exam Date: 02/05/2025 12:16 Report Date: 02/05/2025 [...] Circumferential disc bulge with moderate facet arthropathy. Jzfm-ya-xbodzqzb right-sided and mild left-sided neural foraminal narrowing . 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 Impression dictated by: Mushtaq Antony M.D. 02/05/2025 2:18 PM Dictation Location: [place] [address] Electronically authenticated by: [id number] Y Date: 02/05/2025 14:18 Dictated By: Mushtaq Antony M.D. Signed By: 02/05/25 1421 DD/ 1418 TD/TT: Microbiology Manager:JULIENadiologjaye, Radiologist, - 02/05/2025 [place] [address] Magnetic Resonance Report Signed Patient: TALIA RUTHERFORD MR#: [id number] : 1970 Acct:[id number] Age/Sex: 54 / F ADM Date: 02/04/25 Loc: MRI Attending Dr: Flores Eden M.D. Ordering Physician: Flores Eden M.D. Date of Service: 02/04/25 Procedure(s): MR lumbar spine wo con Accession Number(s): [id number] cc: Pascale Arana [employer]; Flores Eden M.D. The [place] [id number] Patient Name: TALIA RUTHERFORD MRN: [id number] date: 1970 Sex: F Assigned Patient Location: MRI Current Patient Location: Accession/Order Number: [id number] Exam Date: 02/05/2025 12:16 Report Date: 02/05/2025 [...] Circumferential disc bulge with moderate facet arthropathy. Tbnz-mg-epkqbylu right-sided and mild left-sided neural foraminal narrowing . 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 Impression dictated by: Mushtaq Antony M.D. 02/05/2025 2:18 PM Dictation Location: [place] [address] Electronically authenticated by: [id number] Y Date: 02/05/2025 14:18 Dictated By: Mushtaq Antony M.D. Signed By: 02/05/25 1421 DD/ 1418 TD/TT: Microbiology Manager: [facility] HealthcareRadiology Study observation (narrative)[facility] LUMBAR SPINE WO CONOrdered By: Radiologist Radiology on 17-34-8798[facility] Work Phone: all CBC WITH AUTO DIFFon 56-64-9098WHMTCEWEE ABSOLUTE AUTO0.1NOMS HealthcareBasophils/100 WBC (Bld)1 %0.2 - 2.0 %[facility] Healthcare Eosinophils/100 WBC (Bld)6.9 %0.9 - 7.0 %[facility] HealthcareErythrocyte distribution width (RBC) [Ratio]15.6 %High11.0 - 15.0 %[facility] HealthcareHematocrit (Bld) [Volume fraction]36.2 %36.0 - 48.0 %[facility] HealthcareHemoglobin (Bld) [Mass/Vol] 11.8 g/dLLow12.0 - 16.0 g/dLCEDAR CITY HOSPITAL HealthcareIMMATURE GRANULOCYTES ABS AUTO0.01 [facility] HealthcareImmature granulocytes/100 WBC (Bld)0.2 %0.0 - 0.5 %[facility] HealthcareInterpretation and review of laboratory resultsAbnormalUniversity Health [facility] Medical Center LYMPHOCYTES ABSOLUTE AUTO1.9NOMS [facility] Main CampusLymphocytes/100 WBC (Bld)32 %20.5 - 60.0 %[facility] HospitalH (RBC) [Entitic mass]28.6 pg26.7 - 34.0 pgFitzgibbon HospitalHC (RBC) [Mass/Vol]32.6 g/dL29.9 - 35.2 g/dLFitzgibbon HospitalV (RBC) [Entitic vol]87.9 fL81.0 - 99.0 fLUniversity Health Truman Medical CenterMONOCYTES ABSOLUTE AUTO0.3NOMS HealthcareMonocytes/100 WBC (Bld)5.4 %1.7 - 12.0 %[facility] HealthcareNEUTROPHILS ABSOLUTE AUTO3.3NOMS HealthcareNeutrophils/100 WBC (Bld)54.5 %43.0 - 75.0 %[facility] Truman Medical CenterPlatelet mean volume (Bld) [Entitic vol]9.6 fL9.5 - 13.5 fLCEDAR CITY HOSPITAL HealthcareTBH EO #0.4NOMS HealthcareTBH [id number] HealthcareTBH RBC4.12LowNOPR HealthcareTBH WBC6.1NOMS HealthcareCLINISYNCNOMS HealthcareIGP,APTIMA HPV,AGE GDLNon 42-18-4515YSM GDLN ACOG TESTINGNote.[facility] HealthcareComment on above:TESTS RESULT FLAG UNITS REF RANGE LAB Clinician Provided Cytology Information Source.............Cervix;Endocervix No. of containers..01 ThinPrep Vial Age Wilvero ACOG Fiorella... FLAG LEGEND: L-Low Normal,H-High Normal,LL-Alert Low,HH-Alert High <-Panic Low,>-Panic High,A-Abnormal,AA-Critical Abnormal Performed at: 01 =[address] [address] Monika Norton MD, HPV APTIMAPositiveAbnormalNegativeNOMS HealthcareComment on above:This nucleic acid amplification test detects fourteen high- risk HPV types (16,18,31,33,35,39,45,51,52,56,58,59,66,68) without differentiation. HPV GENOTYPE 16NegativeNegativeNOMS HealthcareHPV GENOTYPE 18,45NegativeNegative NOMS HealthcareComment on above:Performed at: =[address] [id number] Truckload Owner Operator: Monika Norton MD, Phone: [phone] Performed at: [address] [id number] Truckload Owner Operator: Monika Norton MD, Phone: [phone] IGP, APTIMA HPV, RFX 16/18,45Note.NOMS HealthcareComment on above:TESTS RESULT FLAG UNITS REF RANGE LAB DIAGNOSIS: 02 NEGATIVE FOR INTRAEPITHELIAL LESION OR MALIGNANCY. Specimen adequacy: 02 Satisfactory for evaluation. Endocervical and/or squamous metaplastic cells (endocervical component) are present. Performed by: Suresh Guerrero Qa Manager . 02 Note: Note 02 The Pap [...] Low,>-Panic High,A-Abnormal,AA-Critical Abnormal Performed at: [address] [address] Monika Norton MD, Interpretation and review of laboratory resultsAbnormLehigh Valley Hospital - Pocono BRUSH-ALONE CERVIX ENDOCERVIX CLINISYSt. Francis HospitalMM TOMOSYNTHESIS SCREENING BIon 29-79-9308Cjb[place] [address] Mammography Report Signed Patient: TALIA RUTHERFORD MR#: [id number] : 1970 Acct:[id number] Age/Sex: 54 / F ADM Date: 10/23/24 Loc: MAMMO Attending Dr: Pascale Arana NP Ordering Physician: Pascale Arana NP Results: Date of Service: 10/23/24 Follow Up: Procedure(s): MM tomosynthesis screening BI Accession Number(s): [id number] cc: Pascale Arana NP Patient Name: TALIA RUTHERFORD MR#: [id number] : 1970 Exam Date: 10/23/2024 Ordering Doctor: [...] breast cancer at age 51. LOCATION: [facility] BREAST COMPOSITION: There are scattered [...] Signed By: 10/23/24 1555 DD/ 1555 TD/TT: Microbiology Manager:TBHRadiology, Radiologist, MD - 10/23/2024 [place] [address] Mammography Report Signed Patient: TALIA RUTHERFORD MR#: [id number] : 1970 Acct:[id number] Age/Sex: 54 / F ADM Date: 10/23/24 Loc: MAMMO Attending Dr: Pascale Arana NP Ordering Physician: Psacale Arana NP Results: Date of Service: 10/23/24 Follow Up: Procedure(s): MM tomosynthesis screening BI Accession Number(s): [id number] cc: Pascale Arana NP Patient Name: TALIA RUTHERFORD MR#: [id number] : 1970 Exam Date: 10/23/2024 Ordering Doctor: [...] breast cancer at age 51. LOCATION: [facility] BREAST COMPOSITION: There are scattered [...] M.D. Signed By: 10/23/241554 DD/ 54 TD/TT: Microbiology Manager: [facility]UNTINGTON HOSPITALScottie [facility] Healthcare Main CampusRadiology Study observation (narrative)[facility] Medical CenterMM TOMOSYNTHESIS SCREENING BIOrdered By: Radiologist Radiology on 40-86-2688OWJJUniversity Health Truman Medical Center Work Phone: all CBC WITH AUTO DIFFon 52-06-5981GGCAJILNG ABSOLUTE YKHO5AYXBUniversity Health Truman Medical CenterBasophils/100 WBC (Bld)0.8 %0.2 - 2.0 %[facility] Eosinophils/100 WBC (Bld)3.9 %0.9 - 7.0 %[facility] Medical CenterErythrocyte distribution width (RBC) [Ratio]14.2 %11.0 - 15.0 %[facility] Medical CenterHematocrit (Bld) [Volume fraction]32.9 %Low36.0 - 48.0 %[facility] Medical CenterHemoglobin (Bld) [Mass/Vol]10.6 g/dLLow12.0 - 16.0 g/dLUniversity Health Truman Medical CenterIMMATURE GRANULOCYTES ABS [id number] Health Truman Medical CenterImmature granulocytes/100 WBC (Bld)0 %0.0 - 0.5 %[facility] Interpretation and review of laboratory resultsAbnormalUniversity Health Truman Medical Center LYMPHOCYTES ABSOLUTE AUTO1.6NOUniversity Health Truman Medical CenterLymphocytes/100 WBC (Bld)31.7 %20.5 - 60.0 %[facility] HospitalH (RBC) [Entitic mass]29.5 pg26.7 - 34.0 pgFitzgibbon HospitalHC (RBC) [Mass/Vol]32.2 g/dL29.9 - 35.2 g/dLNOMS HealthcareMCV (RBC) [Entitic vol]91.6 fL81.0 - 99.0 fLNOMS HealthcareMONOCYTES ABSOLUTE AUTO0.4NOMS HealthcareMonocytes/100 WBC (Bld)7.2 %1.7 - 12.0 %[facility] HealthcareNEUTROPHILS ABSOLUTE AUTO2.8NOMS HealthcareNeutrophils/100 WBC (Bld)56.4 %43.0 - 75.0 %[facility]S HealthcarePlatelet mean volume (Bld) [Entitic vol]10.5 fL9.5 - 13.5 fLNOMS HealthcareTBH EO #0.2NOMS HealthcareTBH [id number] HealthcareTBH RBC3.59LowNOMS HealthcareTBH WBC4.9NOMS HealthcareCLINISYNCNOMS HealthcareCT FOOT LT WO CONon 06-99-2355[place]xs[place] [address] [place] Scan Report Signed Patient: TALIA RUTHERFORD MR#: [id number] : 1970 Acct:[id number] Age/Sex: 54 / F ADM Date: 09/09/24 Loc: CT Attending Dr: Tawana Foster D.P.M. Ordering Physician: Tawana Foster D.P.M. Date of Service: 09/09/24 Procedure(s): CT foot LT wo con Accession Number(s): [id number] cc: ANGEL LUIS GROVES [place] [id number] Patient Name: TALIA RUTHERFORD MRN: [id number] date: 1970 Sex: F Assigned Patient Location: CT Current Patient Location: CT Accession/Order Number: [id number] Exam Date: 09/09/2024 15:56 Report Date: 09/09/2024 [...] Signed By: 09/09/24 174 DD/ 1739 TD/TT: Microbiology Manager:TBHRadiology, Radiologist, - 09/09/2024 [place] [address] CT Scan Report Signed Patient: TALIA RUTHERFORD MR#: [id number] : 1970 Acct:[id number] Age/Sex: 54 / F ADM Date: 09/09/24 Loc: CT Attending Dr: Tawana Foster D.P.M. Ordering Physician: Tawana Foster D.P.M. Date of Service: 09/09/24 Procedure(s): CT foot LT wo con Accession Number(s): [id number] cc: ANGEL LUIS GROVES The [place] [id number] Patient Name: TALIA RUTHERFORD MRN: [id number] date: 1970 Sex: F Assigned Patient Location: CT Current Patient Location: CT Accession/Order Number: [id number] Exam Date: 09/09/2024 15:56 Report Date: 09/09/2024 [...] M.D. Signed By: 09/09/241741 DD/ 38 TD/TT: Microbiology Manager: CHERYL HealthcareRadiology Study observation (narrative)[facility] HealthcareCT FOOT LT WO CONOrdered By: Radiologist Radiology on 43-15-5191JGJW Healthcare Work Phone: XR FOOT LT MIN 3Von 23-30-4097VunWh[place] [address] XRay Report Signed Patient: TALIA RUTHERFORD MR#: [id number] : 1970 Acct:[id number] Age/Sex: 54 / F ADM Date: 09/04/24 Loc: Attending Dr: Tawana Foster D.P.M. Ordering Physician: Tawana Foster D.P.M. Date of Service: 09/04/24 Procedure(s): XR foot LT min 3V Accession Number(s): [id number] cc: ANGEL LUIS GROVES; Tawana Foster D.P.M. [place] [id number] Patient Name: TALIA RUTHERFORD MRN: [id number] date: 1970 Sex: F Assigned Patient Location: Current Patient Location: Accession/Order Number: [id number] Exam Date: 09/04/2024 15:53 Report Date: 09/05/2024 [...] Signed By: 09/05/24 1019 DD/ 1016 TD/TT: Microbiology Manager:JULIENadiologjaye, Radiologist, - 09/05/2024 [place] [address] XRay Report Signed Patient: TALIA RUTHERFORD MR#: [id number] : 1970 Acct:[id number] Age/Sex: 54 / F ADM Date: 09/04/24 Loc: Attending Dr: Tawana Foster D.P.M. Ordering Physician: Tawana Foster D.P.M. Date of Service: 09/04/24 Procedure(s): XR foot LT min 3V Accession Number(s): [id number] cc: NASH GROVES Peter D.P.M. The [place] [address] Patient Name: TALIA RUTHERFORD MRN: [id number] date: 1970 Sex: F Assigned Patient Location: Current Patient Location: Accession/Order Number: [id number] Exam Date: 09/04/2024 15:53 Report Date: 09/05/2024 [...] Signed By: 09/05/24 1019 DD/ 1016 TD/TT: Microbiology Manager: CHERYL HealthcareRadiology Study observation (narrative)[facility] HealthcareXR FOOT LT MIN 3VOrdered By: Radiologist Radiology on 18-64-2344TBWQ Healthcare Work Phone: cHRONIC WOUND/ULCER (HTRX)on 26-76-5376OAIDKVUQYAXFN BAUMANNII (CHRONIC WOUND/ULCER)0NOMS HealthcareACINETOBACTER BAUMANNII (CHRONIC WOUND/ULCER)Not detectedNOMS HealthcareBACTEROIDES FRAGILIS, VULGATUS (CHRONIC WOUND/ULCER)0NOMS HealthcareBACTEROIDES FRAGILIS, VULGATUS (CHRONIC WOUND/ULCER) Not detectedNOMS HealthcareCITROBACTER FREUNDII (CHRONIC WOUND/ULCER)0NOMS HealthcareCITROBACTER FREUNDII (CHRONIC WOUND/ULCER)Not detectedNOMS Healthcare CLOSTRIDIUM PERFRINGENS, NOVYI, SEPTICUM (CHRONIC WOUND/ULCER)0[facility] CLOSTRIDIUM PERFRINGENS, NOVYI, SEPTICUM (CHRONIC WOUND/ULCER)Not detectedNOMS HealthcareCORYNEBACTERIUM JEIKEIUM, STRIATUM, TUBERCULOSTEARICUM (CHRONIC WOUND/[id number] HealthcareCORYNEBACTERIUM JEIKEIUM, STRIATUM, TUBERCULOSTEARICUM (CHRONIC WOUND/ULCERNot detectedNOMS HealthcareCUTIBACTERIUM (PROPIONIBACTERIUM) ACNES (CHRONIC WOUND/ULCER)0NOMS HealthcareCUTIBACTERIUM (PROPIONIBACTERIUM) ACNES (CHRONIC WOUND/ULCER)Not detectedNOMS Healthcare ENTEROBACTER CLOACAE COMPLEX, KLEBSIELLA (ENTEROBACTER) AEROGENES ([id number] HealthcareENTEROBACTER CLOACAE COMPLEX, KLEBSIELLA (ENTEROBACTER) AEROGENES (CHRONICNot [...] HealthcareP. ANAEROBIUS, P. ASACCAROLYTICUS, F. MAGNA, A. [id number] HealthcareP. ANAEROBIUS, P. ASACCAROLYTICUS, F. MAGNA, A. [...] HealthcareVARICELLA ZOSTER VIRUS (HUMAN HERPESVIRUS 3) (CHRONIC WOUND/ULCER)0NOPR HealthcareVARICELLA ZOSTER VIRUS (HUMAN HERPESVIRUS 3) (CHRONIC WOUND/ULCER)Not detectedNOUniversity Health Truman Medical CenterVIBRIO CHOLERAE, PARAHAEMOLYTICUS, VULNIFICUS (CHRONIC WOUND/ULCER)0NOUniversity Health Truman Medical CenterVIBRIO CHOLERAE, PARAHAEMOLYTICUS, VULNIFICUS (CHRONIC WOUND/ULCER)Not detectedNOReynolds County General Memorial Hospital HealthcareALL CBC WITH AUTO DIFFon 94-95-6657HVVUJHQBW ABSOLUTE XUVT3TGZV HealthcareBasophils/100 WBC (Bld)0.6 %0.2 - 2.0 %[facility] Eosinophils/100 WBC (Bld)0 %Low0.9 - 7.0 %[facility] Medical CenterErythrocyte distribution width (RBC) [Ratio]13.6 %11.0 - 15.0 %[facility] Medical CenterHematocrit (Bld) [Volume fraction]37.4 %36.0 - 48.0 %[facility] CenterHemoglobin (Bld) [Mass/Vol]12.1 g/dL12.0 - 16.0 g/dLUniversity Health Truman Medical CenterIMMATURE GRANULOCYTES ABS AUTO 0.01NOUniversity Health Truman Medical CenterImmature granulocytes/100 WBC (Bld)0.2 %0.0 - 0.5 %[facility] CenterInterpretation and review of laboratory resultsAbnormalNOUniversity Health Truman Medical Center LYMPHOCYTES ABSOLUTE AUTO1.1LowNOMS [facility] Healthcare Main CampusLymphocytes/100 WBC (Bld)19.9 %Low 20.5 - 60.0 %[facility] HospitalH (RBC) [Entitic mass]29.4 pg26.7 - 34.0 pgFitzgibbon HospitalHC (RBC) [Mass/Vol]32.4 g/dL29.9 - 35.2 g/dLFitzgibbon HospitalV (RBC) [Entitic vol]91 fL81.0 - 99.0 fLUniversity Health Truman Medical CenterMONOCYTES ABSOLUTE AUTO0.2Low NOM HealthcareMonocytes/100 WBC (Bld)4.2 %1.7 - 12.0 %[facility] NEUTROPHILS ABSOLUTE AUTO4.1NOMS HealthcareNeutrophils/100 WBC (Bld)75.1 %High 43.0 - 75.0 %[facility] Medical CenterPlatelet mean volume (Bld) [Entitic vol]9.7 fL9.5 - 13.5 fLUniversity Health Truman Medical CenterTBH EO #0NOCox [place] QNP646RYZACox [place] RBC 4.11LowNOCox [place] WBC5.4NOUniversity Health Truman Medical CenterCLINISYNCNGRADY MEMORIAL [facility] Healthcare Ambulatory Visit Summaryon 51-86-5793Hfqriuzjgu Visit SummaryAmbulatory Visit Summary TALIA RUTHERFORD :1970 [...] you for choosing us for your care. [facility] CenterGastroenterology Office/Clinic Noteon 54-68-2433Njcogroyhdnaaopy Office/Clinic NoteGastroenterology Office/Clinic Note Chief Complaint ref [...] virus vaccine, inactivated - Not Given Patient RefusesAdams County Regional Medical CenterComment on above:Result Comment: Electronically Signed By: Jelani WELLER, Ron Valdovinos.br\Date and Time Signed: 03/18/2415:21 EDTOutside Colonoscopyon 87-91-7429Ezxuabz Colonoscopy [id number]#1.00TIFUniversity Hospitals Parma Medical CenterReminderson 54-74-4559Ddlfhubay From: Machelle Arauz LPN To: N - Clinical; Sent: 07/20/2023 10:55:11 EST Show up: 06/19/2033 07:00:00 EST Subject: colonoscopy recall Due Date/Time: 07/19/2033 07:00:00 EST Reminder/Recall Patient due for screening colonoscopy 07/19/2033.[facility] CenterLab Reportson 78-77-6938Qmf Reports [id number]#1.00TIFFAdams County Regional Medical CenterInsurance Correspondenceon 55-89-5741Pevwvriut Correspondence [id number]#1.00TIFFAdams County Regional Medical CenterFacesheeton 02-47-1904Dhuwfqzan [id number]#1.00TIFUniversity Hospitals Parma Medical CenterPhysician Referralon 95-61-4570Ndpxrvjix Referral [id number]#1.00TIFUniversity Hospitals Parma Medical CenterAmbulatory Visit Summaryon 33-57-0133Soxzuxdrub Visit Summary TALIA RUTHERFORD :1970 Visit Date:06/07/2023 [...] you for choosing us for your care. [facility] CenterLab Reportson 09-17-9394Isf [id number]#1.00TIFUniversity Hospitals Parma Medical CenterConsultation Noteon 07-75-2232Xgsquynpfjwd Note [id number]#1.00TIFUniversity Hospitals Parma Medical CenterPhysician Referralon 76-69-0084Nyjzsbrvf Referral [id number]#1.00TIFUniversity Hospitals Parma Medical CenterOffice Visiton 83-71-3493Lpdcda-up [id number] Talia Rutherford 1970 Date Provider Department Center 04/07/202368577-ZPKERHTBPCAROL SHAH Family History Problem Relation Age of Onset Brain Aneurysm Mother 80 Diabetes Mother Heart failure Father 80 Diabetes Father Hypertension Father Diabetes Sister Family Status - Relation Status Age at Mother Father Sister Level of Service:[address] [place] OFFICE/OUTPATIENT ESTABLISHED MOD MDM 30-39 [facility]36on 27-91-753204LXY lab called to report critical HGB and hematocrit for patient: HGB was 5.1 and hematocrit is 18.9. I spoke with Talia and advised she go to the ED. She verbalized understanding and will do so.[facility] 66-42-6755Qjtqtr-up [id number] Talia Rutherford 1970 Date Provider Department Center 02/08/202349357-BRIBDIZKTCAROL SHAH Family History Problem Relation Age of Onset Brain Aneurysm Mother 80 Diabetes Mother Heart failure Father 80 Diabetes Father Hypertension Father Diabetes Sister Family Status - Relation Status Age at Mother Father Sister Level of Service:03473 [place] OFFICE/OUTPATIENT NEW MODERATE MDM 45-59 MINUTES Reason for Visit and Comments: Establish Care [42] - Swelling in both legs,right leg is itching and painful Shortness of Breath [024430] Dizziness [624823] Fatigue [46]NormalUnSelect Medical TriHealth Rehabilitation HospitalPREG HCG QUALon 03-10-2022 , QUALNegativeNormalNEGATIVEThe [facility] HospitalComment on above: Performed By: #### PREG ####[facility] [address] [place], [place] [address]GaDr. Moni JohnsonCovid-19 PCR (CVDTB)on 03-03-2022 SARS-CoV-2 (COVID-19) RNA EMMANUEL+probe Ql (Unsp spec)Not detectedNormalNOT DETECTED [facility] HospitalComment on above:Result Comment: This test is not yet approved or cleared by the [place] FDA. When there are no FDA-approved or cleared tests available, and other criteria are met, FDA can make tests available under an emergency access mechanism called an Emergency Use Authorization (EUA). The EUA for this test is supported by the [place] of Health and Human Service's (HHS's) declaration [...] consistent with SARS-CoV-2.Performed By: #### CVDTBH #### [facility] [address] [place], [place] [address] Dr. Moni JohnsonPROF CHEM 8 (BAS METB)on 33-21-9953Qmayc gap [Moles/Vol]9.0 mmol/LNormalThe [facility] HospitalComment on above:Performed By: #### BMP ####[facility] [address] [place], [place] [address]OzDr. Moni JohnsonCalcium [Mass/Vol]8.3 mg/dLCritically low8.5-10.1The [facility] HospitalComment on above:Performed By: #### BMP ####[facility] X[address] [place], [place] [address]Dr.Yilan ChangChloride [Moles/Vol]106 mmol/BYykfbw97-430Zbq [facility] HospitalComment on above:Performed By: #### BMP ####[facility] [address] [place], [place] [address]Dr.Yilan ChangCO2 [Moles/Vol]29.2 mmol/FQoqrnh94.0-32.0The [facility] HospitalComment on above:Performed By: #### BMP ####[facility] [address] [place], [place] [address]Dr.Yilan ChangCreatinine [Mass/Vol]0.78 mg/dLNormal0.55-1.02The [facility] HospitalComment on above: Performed By: #### BMP ####[facility] Rowxenz[address] [place], [place] [address]Dr.Yilan ChangEGFR-AF THAI>60Normal>=60The [facility] HospitalComment on above:Performed By: #### BMP ####[facility] [address] [place], [place] [address]Dr.Yilan ChangEGFR-NON AF THAI>60Normal>=60The [facility] HospitalComformerly [facility] on above:Performed By: #### BMP ####[facility] [address] [place], [place] [address]Dr. Yilan ChangGlucose [Mass/Vol]88 mg/rHDzojjv07-493Lxq [facility] HospitalComment on above:Performed By: #### BMP ####[facility] [address] [place], [place] [address]Dr.Yilan ChangPotassium [Moles/Vol]4.2 mmol/LNormal 3.5-5.1The [facility] HospitalComment on above:Performed By: #### BMP ####[facility] [address] [place], [place] [address]Dr.Yilan Johnson Sodium [Moles/Vol]140 mmol/GBdiukt783-951Dus [facility] HospitalComment on above: Performed By: #### BMP ####[facility] [address] [place], [place] [address]Fm.Moni ChangUrea nitrogen [Mass/Vol]21.0 mg/dL Critically high7.0-18.0[facility] CenterComformerly [facility] on above:Performed By: #### BMP ####[facility] [address] [place], [place] [address]Kl. Yimaria a ChangUrea nitrogen/Creatinine [Mass ratio]26.9 mg/mgNoBethesda North HospitalComment on above:Performed By: #### BMP ####[facility] [address] [place], [place] [address]Nh.Yilan ChangCT FOOT LT WO CONon 30-33-0981SP FOOT LT WO CONEXAMINATION: CT FOOT LT [...] Electronically authenticated by: ELLIOT JOSE Date: 2022-02-22 18:32[facility] HospitalCOVID Quick Testingon 74-97-9614LmlilsAfrveqzfJjgfb Generaytor Other Quick Fluon 98-88-9859MMULU Ab CF (S) [Titer]Negative Neurodyn Other FLUBV Ab CF (S) [Titer]Negative'Rock' Your Paper Other 644-6094Qzirs-62 PCR ([facility])on 29-07-5952OAUK-CoV-2 (COVID- 19) RNA EMMANUEL+probe Ql (Unsp spec)Not detectedNormalNOT DETECTEDThe [facility] HospitalComment on above:Result Comment: This test is not yet approved or cleared by the [place] FDA. When there are no FDA-approved or cleared tests available, and other criteria are met, FDA can make tests available under an emergency access mechanism called an Emergency Use Authorization (EUA). The EUA for this test is supported by the [place] Special[place] of Health and Human Service's (HHS's) declaration [...] and symptoms consistent with SARS-CoV-2.Performed By: #### [facility] #### [facility] [address] [place] [address] Dr. Moni Johnson Vital Signs Date TimeVital SignValuePerforming WlgsobjzzPzvucdxu05-77-4512 14:29-0400Body olhohw739.1 Corinna Arana [employer]C Work Phone: [facility]10-13-2025 14:29-0400 Body mass index (BMI) [Ratio]29.2 kg/m2Lisa Derrickhholz [employer] Work Phone: [facility]10-13-2025 14:29-0400 Body efgdtv36.83 kgLisa Derrickhholz [employer]C Work Phone: [facility]10-13-2025 14:29-0400 Diastolic blood ogndvbjx42 mm[Hg]Pascale Arana [employer] Work Phone: [phone] [place], [place] [address]10-13-2025 14:29-0400 Heart rate83 /minLisa Aichholz [employer] Work Phone: [phone] [place], [place] 427[address]10-13-2025 14:29-0400 Systolic blood udwpzirv17 mm[Hg]Pascale Aichholz [employer] Work Phone: [phone]10-08-2025 16:44-0400 Body giujvf876.1 cmLisa Aichholz [employer] Work Phone: [phone]10-08-2025 16:44-0400 Body mass index (BMI) [Ratio]29.3 kg/m2Lisa Aichholz [employer] Work Phone: [phone]10-08-2025 16:44-0400 Body aouotpajqop39 [degF]Pascale Aichholz [employer] Work Phone: [phone]10-08-2025 16:44-0400 Body blices20.08 kgLisa Aichholz [employer] Work Phone: [phone]10-08-2025 16:44-0400 Diastolic blood myowjkdt14 mm[Hg]Pascale Aichholz [employer] Work Phone: [phone]10-08-2025 16:44-0400 Heart rate65 /minLisa Aichholz [employer] Work Phone: [phone]10-08-2025 16:44-0400 Respiratory rate16 /minLisa Aichholz [employer] Work Phone: [phone] [place], [place] [address]10-08-2025 16:44-0400 SaO2% (BldA) [Mass fraction]99 %Pascale Aichholz [employer] Work Phone: [phone] [place], [place] [address]10-08-2025 16:44-0400 Systolic blood ujlcisbs07 mm[Hg]Pascale Aichholz [employer] Work Phone: [facility]09-10-2025 14:57-0400 Body cefxdi755.4 cmJovon Asif MD Work Phone: [facility]09-10-2025 14:57-0400Body mass index (BMI) [Ratio]28.94 kg/e0TjmxihJovon Asif MD Work Phone: [facility]09-10-2025 14:57-0400Body .11 kgJovon Asif MD Work Phone: [facility]09-10-2025 14:57-0400Diastolic blood uvufgmha15 mm[Hg]Jovon Asif MD Work Phone: [facility]09-10-2025 14:57-0400Heart rate 83 /minJovon Asif MD Work Phone: [facility]09-10-2025 14:57-0400Systolic blood apqekrxo23 mm[Hg]Jovon Asif MD Work Phone: [facility]09-02-2025 08:37-0400Body rrfrku488.1 Corinna Arana Work Phone: [phone]09-02-2025 08:37-0400 Body mass index (BMI) [Ratio]29.2 kg/m2Pascale Arana Work Phone: [facility]09-02-2025 08:37-0400 Body vvyqtm78.6 kgPascale Arana Work Phone: [facility]08-05-2025 11:31-0400 Body mass index (BMI) [Ratio]28.76 kg/m2Pascale Arana [employer] Work Phone: [phone] 11:31-0400Body temperature 97.81 [degF]Pascale Aichholz [employer] Work Phone: [facility] CenterXzfayqsuqs65-96-0657 11:31-0400Body .38 kgPascale Arana [employer] BRIM [employer] Work Phone: [facility] CenterAjjunkcsfj66-34-9749 11:31-0400Diastolic blood mm[Hg]Pascale Arana [employer] BR[employer] Work Phone: [facility] CenterSzeoyooqzt99-26-2347 11:31-0400Heart rate99 /min Pascale Arana [employer] Work Phone: [facility] CenterGjdlgizyor18-91-0043 11:31-3337WpQ2% (BldA) [Mass fraction]97 %Pascale Arana [employer] Work Phone: [facility] CenterDgdsubxjpb13-92-8046 11:31-0400Systolic blood njjwwhoq126 mm[Hg]Pacsale Arana [employer] BR[employer] Work Phone: [facility] CenterHivsdhjbfb93-80-9401 15:01-0400Body mass index (BMI) [Ratio]28.79 kg/p6ZqrysrfeEunice Dias PMHNP-BC Work Phone: [facility] CenterEyqizsekqg33-07-7556 15:01-0400Body .47 kgEunice Dias PMHNP-BC Work Phone: [facility] CenterMarotsmkvr38-12-7439 15:01-0400Diastolic blood wnmvuslv21 mm[Hg]Eunice Dias PMHNP-BC Work Phone: [facility] CenterPoexazbbhp84-82-9698 15:01-0400Heart rate88 /min Eunice Dias PMHNP-BC Work Phone: [facility] CenterDwxediquwx89-12-9402 15:01-0400Systolic blood mm[Hg]Eunice Dias PMHNP-BC Work Phone: [facility] CenterRpbcrxvadn58-72-6349 14:23-0400Body gckent674.4 Ning Muniz DO Work Phone: [facility]07-17-2025 14:23-0400Body mass index (BMI) [Ratio]28.51 kg/s3HkwzuShelia Muniz DO Work Phone: [facility]07-17-2025 14:23-0400Body cwofye47.93 kgShelia Muniz DO Work Phone: [facility]07-17-2025 14:23-0400Diastolic blood uwfcvwvg03 mm[Hg]Shelia Muniz DO Work Phone: [facility]07-17-2025 14:23-0400Systolic blood mm[Hg]Shelia Muniz DO Work Phone: [facility]07-02-2025 09:04-0400Body mass index (BMI) [Ratio]29.62 kg/o5PabeuijjEunice Dias PMHNP-BC Work Phone: [facility] CenterZthqtvgiww56-52-1433 09:04-0400Body eelrxt23.74 kgEunice Dias PMHNP-BC Work Phone: [facility] CenterVoxngccwnk11-19-3039 09:04-0400Diastolic blood blavmgyh32 mm[Hg]Eunice Dias PMHNP-BC Work Phone: [facility] CenterDnmlagfrne45-74-8006 09:04-0400Heart rate78 /min Eunice Dias PMHNP-BC Work Phone: [facility] CenterRslwkkjiug99-30-4655 09:04-0400Systolic blood wmifrhel243 mm[Hg]Eunice Dias PMHNP-BC Work Phone: [facility] CenterYqzeabugcl38-03-1458 16:32-0400Body mass index (BMI) [Ratio]29.99 kg/m2Pascale Arana [employer] BRIM [employer] Work Phone: [facility] CenterNpdnvlpedd61-77-5352 16:32-0400Body temperature 98.01 [degF]Pasclae Arana [employer] BR[employer] Work Phone: [facility] CenterIixynltrwu15-57-9889 16:32-0400Body rhtemv19.74 kgLisa Aichholz HAND BRIM IR[employer]ER Work Phone: HFUniversity [facility] CenterHknywnalig69-75-4405 16:32-0400Diastolic blood mm[Hg]Pascale Shalaholz HAND BRIM [employer]ER Work Phone: [facility] CenterHcadzmtyty81-60-4991 16:32-0400Heart rate82 /min Pascale Derrickhholz HAND BRIM [employer]ER Work Phone: [facility] CenterVgsrfotohx28-86-1287 16:32-0400Respiratory rate18 /minLisa Aichholz HAND BRIM [employer]ER Work Phone: [facility] CenterJrrtwwvtio75-81-0509 16:32-5899QsT2% (BldA) [Mass fraction]98 %Pascale Shalaholz [employer] BRIM [employer]ER Work Phone: [facility] CenterNiozxpupyw58-60-1569 16:32-0400Systolic blood seggwacd149 mm[Hg]Pascale Shalaholz HAND BRIM [employer]ER Work Phone: [facility] CenterOtjlxxgrks05-18-7193 15:30-0400Body mass index (BMI) [Ratio]32.48 kg/m2Lisa Shalaholz HAND BRIM [employer]ER Work Phone: [facility] CenterAkynegvnst26-66-0255 15:30-0400Body temperature 98.2 [degF]Pascale Shalaholz HAND BRIM [employer]ER Work Phone: [facility] CenterMpxrhzzglo81-02-8378 15:30-0400Body ntovya43.54 kgLisa Shlaaholz HAND BRIM [employer]ER Work Phone: [facility] CenterHoiipxxorx47-06-8187 15:30-0400Diastolic blood xmohhclm09 mm[Hg]Pascale Derrickhholz HAND BRIM [employer]ER Work Phone: [facility] CenterBobtuwcnuk58-36-7378 15:30-0400Heart rate80 /min Pascale Aichholz HAND BRIM [employer]ER Work Phone: [facility] CenterRiypzaqjyn97-77-0932 15:30-0400Respiratory rate18 /minLisa Aichholz HAND BRIM [employer]ER Work Phone: [facility] CenterYjndyflifq10-23-5255 15:30-1877QtI1% (BldA) [Mass fraction]95 %Pascale Sumit [employer] BRIM [employer]ER Work Phone: [facility] CenterAonjvdhfrr31-85-0517 15:30-0400Systolic blood csfrpdzy765 mm[Hg]Pascale Javierz HAND BRIM [employer]ER Work Phone: [facility] CenterGehnruvkfo00-25-9272 17:34-0400Body mass index (BMI) [Ratio]32.58 kg/m2Lisa Javierz HAND BRIM [employer] Work Phone: [facility] CenterEisipmihdt06-61-4155 17:34-0400Body temperature 98.8 [degF]Pascale Javierz HAND BRIM [employer]ER Work Phone: [facility] CenterGlxxfpijse63-13-9248 17:34-0400Body ozbljz29.81 kgLisa Lastholz HAND BRIM [employer]ER Work Phone: [facility] CenterYoipimnfkw38-46-8643 17:34-0400Diastolic blood mm[Hg]Pascale Javierz [employer] BRIM [employer]ER Work Phone: [facility] CenterDeblcfvbkq57-09-2385 17:34-0400Heart rate92 /min Pascale Javierz [employer] BRIM [employer] Work Phone: [facility] CenterHymqbuxfyn11-11-1339 17:34-0400Respiratory rate18 /minLisa Herreraz HAND BRIM [employer]ER Work Phone: [facility] CenterGnoqllympf20-91-5069 17:34-8895SbV8% (BldA) [Mass fraction]97 %Pascale Javierz [employer] BRIM [employer]ER Work Phone: [facility] CenterKupgrnhbbz53-00-9655 17:34-0400Systolic blood lcduaiok52 mm[Hg]Pascale Shalaholz HAND BRIM [employer]ER Work Phone: [facility] CenterQuwvaytgdu61-99-2824 16:51-0400Body boffsy948.1 Chenisa Derrickhholz HAND BRIM [employer]ER Work Phone: [facility] CenterAttidftajk68-14-2076 16:51-0400Body mass index (BMI) [Ratio]33.51 kg/m2Lisa Shalaholz HAND BRIM [employer] Work Phone: [facility] CenterJzyxzxwxtu02-65-8771 16:51-0400Body temperature 97.81 [degF]Pascale Arana [employer] BRIM [employer] Work Phone: [facility] CenterJpavdfvxka64-57-3904 16:51-0400Body wuqoab47.35 kgPascale Arana HAND BRIM [employer]ER Work Phone: [facility] CenterSwklemznck23-76-4506 16:51-0400Heart rate68 /min Pascale Arana [employer] BRIM [employer] Work Phone: [facility] CenterZygpxoevig57-28-2018 16:51-0400Respiratory rate18 /minPascale Arana [employer] BRIM [employer]ER Work Phone: [facility] CenterOebndjsqbe55-64-7682 16:51-1612NzK0% (BldA) [Mass fraction]97 %Pascale Arana [employer] Work Phone: [facility] CenterBbxcwduuyz78-98-0077 16:10-0500Body ovkmoz799.1 cmBrmanasa Nolanpatrick HAND BRIM [employer]ER Work Phone: [facility] CenterJqixuwtmgt77-94-8326 16:10-0500Body mass index (BMI) [Ratio]33.28 kg/t0Mjykktbm Groves HAND [employer]ER Work Phone: [facility] CenterBcmzggejqk44-85-4619 16:10-0500Body temperature 97.2 [degF]Angel Luis Groves HAND BRIM [employer]ER Work Phone: [facility] CenterAivzklbupb21-24-0633 16:10-0500Body .72 kgBrmanasa Groves HAND BRIM [employer]ER Work Phone: [facility] CenterHpxuxamrid12-25-9376 16:10-0500Diastolic blood tycmzhvb09 mm[Hg]Angel Luis Groves [employer] BRIM [employer] Work Phone: [facility] CenterWchblolafb61-40-1954 16:10-0500Heart rate79 /min Angel Luis Groves [employer] BRIM [employer] Work Phone: [facility] CenterLwomzmptws69-75-6948 16:10-0500Respiratory rate16 /minBrmanasa Mathurtrick HAND BRIM IR[employer]ER Work Phone: [facility] CenterDbxaaaupop62-75-5247 16:10-2302JnG9% (BldA) [Mass fraction]98 %Angel Luis Mathurtrick HAND BRIM [employer]ER Work Phone: [facility] CenterUorueifhix57-84-9041 16:10-0500Systolic blood babgxbab103 mm[Hg]Angel Luis Mathurtrick HAND BRIM [employer]ER Work Phone: [facility] CenterOwfsmudngs92-80-1253 16:04-0500Body mass index (BMI) [Ratio]33.32 kg/m2Pascale Lastdes HAND BRIM [employer]ER Work Phone: [facility] CenterKnopyydpqo45-93-8850 16:04-0500Body temperature 98.1 [degF]Pascale Sumit [employer]IM [employer] Work Phone: [facility] CenterJvcvstokun08-39-8654 16:04-0500Body qefcxv82.81 kgPascale Lastdes HAND BRIM [employer]ER Work Phone: [facility] CenterLcaexajqgw12-70-3192 16:04-0500Diastolic blood zbjmrjac59 mm[Hg]Pascale Sumit [employer] BRIM [employer]ER Work Phone: [facility] CenterDwshznkqgt10-22-8637 16:04-0500Heart rate80 /min Pascale Sumit [employer] BRIM [employer]ER Work Phone: [facility] CenterZkpryfgytl42-59-0975 16:04-0500Respiratory rate20 /minLisa Lastdes HAND BRIM [employer]ER Work Phone: [facility] CenterXsjlqenhru55-05-1458 16:04-8699YwP6% (BldA) [Mass fraction]97 %Pascale Sumit [employer] BRIM [employer]ER Work Phone: [facility] CenterCwcseygrih08-63-7329 16:04-0500Systolic blood mm[Hg]Pascale Sumit HAND BRIM [employer]ER Work Phone: [facility] CenterNmkyyjzsrk52-35-4735 14:59-0500Body ratuqu894.1 cmBrittany Groves HAND BRIM IR[employer]ER Work Phone: [facility] CenterZdzzdrfkzc96-27-9677 14:59-0500Body mass index (BMI) [Ratio]34.28 kg/a9Qnfloafo Groves HAND BRIM [employer]ER Work Phone: [facility] CenterDlauidmnzv37-81-0543 14:59-0500Body temperature 96.21 [degF]Angel Luis Groves HAND BRIM [employer]ER Work Phone: [facility] CenterMlcarsnsxs02-16-9605 14:59-0500Body .44 kgBrittany Groves HAND BRIM IR[employer]ER Work Phone: [facility] CenterIjqsrpdxlt24-78-8816 14:59-0500Diastolic blood mm[Hg]Angel Luis Groves HAND BRIM [employer]ER Work Phone: [facility] CenterUayicnbtxf69-87-7972 14:59-0500Heart rate83 /min Angel Luis Groves HAND BRIM [employer] Work Phone: [facility] CenterGoiyffyqab11-94-7838 14:59-0500Respiratory rate22 /minBrmanasa Groves HAND BRIM [employer]ER Work Phone: [facility] CenterLheppedjek04-78-5765 14:59-2596HtT3% (BldA) [Mass fraction]98 %Angel Luis Groves HAND BRIM [employer]ER Work Phone: [facility] CenterDagngmlsnd62-83-1585 14:59-0500Systolic blood gibkvotp985 mm[Hg]Angel Luis Groves HAND BRIM [employer] Work Phone: [facility] CenterPfkvifrnat31-09-2801 15:56-0400Body mllljy161.1 cmBrittmelani Groves HAND BRIM IR[employer]ER Work Phone: [facility] CenterMqlqwnzeya46-55-8158 15:56-0400Body mass index (BMI) [Ratio]33.61 kg/a3Xfhawrsn Groves [employer] Work Phone: [facility] CenterKajeoaoonr27-51-6421 15:56-0400Body temperature 98.29 [degF]Angel Luis Groves [employer] BRIM [employer] Work Phone: [facility] CenterGetdonlojz54-50-0583 15:56-0400Body ywcnqt45.63 kgBrmanasa Nolanpatrick HAND BRIM IR[employer]ER Work Phone: [facility] CenterXucjgaqaxj31-07-2499 15:56-0400Diastolic blood ltniqnyr61 mm[Hg]Angel Luis Brittonzpatrick HAND BRIM IR[employer]ER Work Phone: [facility] CenterAzkxribobw86-21-2834 15:56-0400Heart rate67 /min Angel Luis Groves HAND BRIM [employer] Work Phone: [facility] HealthcareComment on above:98% L993-55-5435 15:56-0400Systolic blood tegjkwgt938 mm[Hg]Angel Luis Groves [employer] BRIM [employer] Work Phone: [facility] CenterPfxujuykhr85-35-3070 15:06-0400Blood Pressure LocationRon Palomares 549-1274Inuyej-RvbnlDetwiler [facility]08-26-2024 15:06-0400Diastolic blood ilrqavja63 mm[Hg]Ron Palomares 108-4709Rfagmf-NfoxlDetwiler Memorial Hospital08-26-2024 15:06-0400Heart rate85 /minBradhamad Jelani [phone]-XuzjlDetwiler Memorial Hospital08-26-2024 15:06-0400Respiratory rate16 /minMohamad Mouchli 167-4975Zeomaq-DwebgDetwiler Memorial Hospital08-26-2024 15:06-0400Systolic blood ntrhvanh015 mm[Hg]Ron Palomares 189-5322Sqbucs-NsjmqDetwiler Memorial Hospital08-20-2024 15:46-0400Body ezwrrs571.1 cmBrmanasa Mathurtrick HAND BRIM [employer]ER Work Phone: [facility] CenterAjbsujkapv43-49-9808 15:46-0400Body mass index (BMI) [Ratio]33.28 kg/m1Dellvbql Groves [employer] Work Phone: noUniversity [facility] CenterGalramgimz47-76-7175 15:46-0400Body temperature 98.01 [degF]Angel Luis Nolanpatrick HAND BRIM [employer]ER Work Phone: [facility] CenterGoyljfiaez70-53-6981 15:46-0400Body vcukih43.72 kgAngel Luis Groves HAND BRIM IR[employer]ER Work Phone: [facility]OUn[facility] CenterGshdbyiztf09-08-0886 15:46-0400Diastolic blood mm[Hg]Angel Luis Brittonzpatrick HAND BRIM [employer]ER Work Phone: noUniversity [facility] CenterQjcefxcsld28-47-2251 15:46-0400Heart rate71 /min Angel Luis Groves HAND BRIM [employer]ER Work Phone: noms HealthcareComment on above:99% O976-20-9521 15:46-0400Systolic blood frxbhcku652 mm[Hg]Angel Luis Brittonzpatrick HAND BRIM [employer]ER Work Phone: [facility] CenterYyspsbecwb73-93-9719 16:03-0500Blood Pressure LocationMichael NILL [facility] Fauxelkh51-56-5826 16:03-0500Diastolic blood mm[Hg]Segun NILL [facility] Xjwhstpi50-27-8327 16:03-0500Heart rate 72 /minMichael NILL [facility] Grbnncyp72-39-1072 16:03-0500 Respiratory rate16 /minMichael NILL [facility] Oawpyayj82-34-3254 16:03-0500Systolic blood awrsclwg811 mm[Hg]Segun NILL [facility] Mndlhszy47-38-4960 13:00-0500Body .1 Phill Quintana Other [employer] Other 02-07-2022 13:00-0500Body mass index (BMI) [Ratio] 30.95 kg/z7Ohlqd Mariano Other [employer] Other 02-07-2022 13:00-0500Body pgbbbcnjimw94 [degF]Kristin Mariano Other [employer] Other 02-07-2022 13:00-0500Body iknkid01.37 kgAmber Mariano Other [employer] Other 02-07-2022 13:00-0500Respiratory rate16 /minAmber Mariano Other [employer] Other 02-07-2022 13:00-9426DhR4% (BldA) [Mass fraction]98 % Kristin Mariano Other [employer] Other Encounters Encounter DateEncounter TypeCare ProviderFacilityStart: 05-05-2025 End: 54-93-1653wkaurzvnuhAgrk J Aichholz NP-C Work Phone: [facility] Work Phone: Start: 05-05-2025 End: 34-72-1086Bvlmzps encounter Pablo Del Toro APRCitizens Memorial Healthcare Work Phone: Start: 30-17-1509Rfv-patient / Non-visitPascale GREENC[email or web address] Work Phone: Start: 05-05-2025 End: 74-66-6187awnxjoepolNnmftkl Matt Eden MDFacility:PM Fredrick Start: 05-02-2025 End: 79-95-0196Rtgobtivr encounterKendafaizan Gudino CMAProMedica Physicians Pelvic Health - UrogynecologyStart: 04-30-2025 End: 75-73-2213iywoieoggrItdwZuhair Arana NP-C Work Phone: [facility] Work Phone: Start: 04-30-2025 End: 81-46-9231Tgcfcqf encounter procedurePascale Arana NP-C-[facility] Work Phone: Start: 04-23-2025 End: 69-21-9565Hnnbzhm encounter procedureShun Arshad MD-[facility] Work Phone: Start: 04-23-2025 End: 84-68-5288qxhuioqaqoVlsc J Aichholz HAND BRIM [employer]ER-C Work Phone: [facility] Work Phone: Start: 93-33-3185Zxd-patient / Non-visitChristian Olivier Dong MD-[facility] Work Phone: Start: 04-09-2025 End: 62-68-1827gblpyeuvojLBBWYQ MALICKINot AvailableStart: 04-09-2025 End: 06-01-9066Opioio flowsheetBayley Malicki LPCNOMS [facility] Start: 04-09-2025 End: 50-37-7495Eejafv flowsheetBayley Malicki LPCNOMS [facility] Start: 04-03-2025 End: 04-22-7820Ggvzad outpatient visit 15 minutesEunice Dias PMHNP-BC Work Phone: [facility]Ho[facility] Behavioral HealthComment on above:JESSIKA (generalized anxiety disorder) ; Severe episode of recurrent major depressive disorder, without psychotic features (HCC); PTSD (post-traumatic stress disorder) ; Insomnia, unspecified type; FibromyalgiaStart: 04-03-2025 End: 70-98-6642awmhtmeuglZJLWRPPE BRITTONNot AvailableStart: 04-02-2025 End: 85-00-4542Iuokmr outpatient new 45 minutesNadine C Laya MD Work Phone: [facility] Centerca Physicians Pelvic Health - UrogynComment on above:Cystocele with second degree uterine prolapse (Primary Dx); History of reconstructive repair of rectocele; Urge urinary incontinenceStart: 04-02-2025 End: 54-79-6805mucrustgatUFDQXI C KASSISUniversity Hospitals St[facility] Ambulatory PPGStart: 03-25-2025 End: 02-96-6919pqktzlbnriIFALGS MALICKINot AvailableStart: 03-25-2025 End: 25-78-1684Gjnlxd flowsheetBayley Malicki LPCNOMS [facility] Start: 03-25-2025 End: 30-93-7395Xesalb flowsheetBayley Malicki LPCNOMS [facility] Start: 03-25-2025 End: 06-93-3048fwwazvvhajTukn J Aichholz Work Phone: [facility] Work Phone: Start: 03-25-2025 End: 58-76-6069Fivfjkv encounter Dexter Arshad MD-[facility] Work Phone: start: 03-10-2025 End: 52-21-5031uveqmfqkuqQwcqqmx Vytautas Giedraitis MDFacility:[facility] Start: 03-06-2025 End: 51-83-1907kuvkicwwfrFZZERU MALICKINot AvailableStart: 03-06-2025 End: 47-77-7137Cnioik flowsheetBayley Malicki LPCNOMS [facility] Start: 03-06-2025 End: 90-32-5254Jheylk flowsheetBayley Malicki LPCNOMS [facility] Start: 03-05-2025 End: 45-23-7253Fbtfjndki Result EncounterLisa Sumit [employer] Work Phone: n[facility] External Department UnsolicitedStart: 03-05-2025 End: 31-62-3996Abalvyjzf Result EncounterLisa Sumit [employer] Work Phone: n[facility] External Department UnsolicitedStart: 02-26-2025 End: 01-93-8813Dnjxvsylp Result EncounterGeneric External Data ProviderNOPR External Department UnsolicitedStart: 02-26-2025 End: 92-88-0910Jkaxslmed Result EncounterGeneric External Data ProviderNOPR External Department UnsolicitedStart: 02-26-2025 End: 71-21-6863YawjtrPyfy Sumit CAMARGO Work Phone: [facility] FMComment on above:Gastroesophageal reflux disease, unspecified whether esophagitis present (Primary Dx)Start: 02-25-2025 End: 60-31-2923Fucaem outpatient visit 25 minutesPascale Sumit [employer] Work Phone: [facility] FMComment on above:Severe episode of recurrent major depressive disorder, without psychotic features (HCC) (Primary Dx); Cigarette nicotine dependence without complication; PTSD (post-traumatic stress disorder) ; Class 1 obesity due to excess calories without serious comorbidity with body mass index (BMI) of 32.0 to 32.9 in adult; Iron deficiency anemia secondary to inadequate dietary iron intake; Primary insomniaStart: 02-25-2025 End: 28-94-8583aokggbfqrwZFNY AICHHOLZNot AvailableStart: 02-24-2025 End: 06-06-3461ursisyftvhGLWIXMVE BRITTONNot AvailableStart: 02-24-2025 End: 59-15-4559Shqicd outpatient visit 15 minutesEunice Dias [facility]- Work Phone: [facility] HealthComment on above:JESSIKA (generalized anxiety disorder) ; Severe episode of recurrent major depressive disorder, without psychotic features (HCC); PTSD (post-traumatic stress disorder) ; Insomnia, unspecified type; Sleep apnea, unspecified typeStart: 02-24-2025 End: 91-21-1688Vmvmou Sarah Dias [facility]- Work Phone: [facility] HealthStart: 02-24-2025 End: 69-31-9359Cfwylj Sarah Dias [facility]- Work Phone: [facility] HealthStart: 02-24-2025 End: 70-33-8198Fwiws Birdie Asif MD Work Phone: [facility] Start: 02-20-2025 End: 54-52-1248OvduefTylv Aichholz [employer] Work Phone: n[facility] FMComment on above:Psychophysiological insomniaStart: 02-19-2025 End: 10-65-3628Pjxufxsug Result EncounterGeneric External Data ProviderNOMS External Department UnsolicitedStart: 02-19-2025 End: 02-23-3244Mfjcpfwuo Result EncounterGeneric External Data ProviderNOMS External Department UnsolicitedStart: 02-11-2025 End: 47-44-4033OnlbtrDris Aichholz [employer] Work Phone: [facility] FMComment on above:UTI (urinary tract infection), uncomplicated; Class 1 obesity due to excess calories without serious comorbidity in adult, unspecified BMI; BMI 32.0-32.9,adultStart: 02-06-2025 End: 75-96-7699Tshwyi outpatient new 30 minutesTan DO Work Phone: [facility]/GynecologyComment on above:Cystocele with second degree uterine prolapse (Primary Dx); History of reconstructive repair of rectocele; Urge urinary incontinence; Incomplete emptying of bladder; Atrophic vaginitisStart: 02-06-2025 End: 71-98-6445OgdmygEqaa Aichholz [employer] Work Phone: [facility] FMComment on above:URTI (acute upper respiratory infection); Non-recurrent acute suppurative otitis media of both ears without spontaneous rupture of tympanic membranesStart: 02-05-2025 End: 34-68-7819Ltxyngzai Result EncounterGeneric External Data ProviderNOMS External Department UnsolicitedStart: 02-05-2025 End: 94-38-3893Hqmynquyb Result EncounterGeneric External Data ProviderNOMS External Department UnsolicitedStart: 01-22-2025 End: 22-96-4216Lejsnu Sarah Dias HNP-BC Work Phone: noms CI BHStart: 01-22-2025 End: 24-66-2405Adfjys Sarah Dias HNP-BC Work Phone: noms CI BHStart: 01-22-2025 End: 52-15-2539degtwcjlzeBVQEHOBB BRITTONNot AvailableStart: 01-20-2025 End: 88-64-0849hormrxiuzpFchzzyv Vytautas Giedraitis MDFacility:[facility] [place] Start: 01-14-2025 End: 60-52-7112Oqkdqnlvl Result EncounterLisa Derrickhholz [employer] Work Phone: n[facility] External Department UnsolicitedStart: 01-14-2025 End: 63-44-9750Axdmezujl Result EncounterLisa Aichholz [employer] Work Phone: n[facility] External Department UnsolicitedStart: 01-14-2025 End: 97-57-5793YckkrgWplr Aichholz [employer] Work Phone: [facility] FMComment on above:URTI (acute upper respiratory infection); Non-recurrent acute suppurative otitis media of both ears without spontaneous rupture of tympanic membranesStart: 01-07-2025 End: 16-62-3440Yzmlat OnlyLisa Derrickhholz [employer] Work Phone: [facility] FMComment on above:B12 deficiency (Primary Dx); Iron deficiency anemia secondary to inadequate dietary iron intakeStart: 01-06-2025 End: 25-62-8322Hnkgrt outpatient visit 25 minutesLisa Sumit [employer] Work Phone: [facility] FMComment on above:Bipolar disorder with severe depression (HCC) (Primary Dx); Gastroesophageal reflux disease, unspecified whether esophagitis present; Class 1 obesity due to excess calories without serious comorbidity with body mass index (BMI) of 32.0 to 32.9 in adult; Cigarette nicotine dependence without complication; Stress; Fibromyalgia; Psychophysiological insomniaStart: 01-06-2025 End: 03-01-3472zzvsgkqrceIIAQ AICHHOLZNot AvailableStart: 01-06-2025 End: 71-48-0338Iwqrph flowsheetLisa Mezahholz [employer] Work Phone: [facility] FMStart: 01-06-2025 End: 50-96-2144Mevzpi flowsheetLisa Aichholz [employer] Work Phone: [facility] FMStart: 01-06-2025 End: 97-26-9798Ikhrkykjd encounterLisa Derrickhholz [employer] Work Phone: [facility] FMStart: 12-18-2024 End: 39-40-2606SapvlpUuws Shalaholz [employer] Work Phone: [facility] FMComment on above:URTI (acute upper respiratory infection); Non-recurrent acute suppurative otitis media of both ears without spontaneous rupture of tympanic membranesStart: 11-20-2024 End: 69-17-2516ocyvjaweoxTQBL AICHHOLZNot AvailableStart: 11-20-2024 End: 37-04-8072Bitcocj encounter procedureLisa Lastholz [employer] Work Phone: n[facility] HealthcareStart: 11-20-2024 End: 25-19-3531Aphzxjum preventive med est patient 40-64yrsLisa Shalaholz [employer] Work Phone: [facility] FMComment on above:Well [...] Hot flashes due to menopauseStart: 11-20-2024 End: 23-08-4622Tatugr flowsheetLisa Aichholz [employer] Work Phone: [facility] FMStart: 11-20-2024 End: 10-77-6016Lxdodh flowsheetPascale Arana [employer] Work Phone: [facility] FMStart: 11-20-2024 End: 80-37-2776Wcuzsfnpd Result EncounterPascale Arana [employer] Work Phone: noms External Department UnsolicitedStart: 11-18-2024 End: 19-32-8087HcrzkxFpir Aichholz [employer] BRIM IR[employer]ER Work Phone: noms CWM FMComment on above:Overactive bladder due to prolapse of female genital organGastroesophageal reflux disease, unspecified whether esophagitis presentPsychophysiological insomniaFibromyalgiaEnvironmental and seasonal allergiesURTI (acute upper respiratory infection); Non-recurrent acute suppurative otitis media of both ears without spontaneous rupture of tympanic membranesBipolar disorder with severe depression (CMS/[facility]) Start: 10-23-2024 End: 49-09-4720Hynlpn outpatient visit 15 Twila Arana HAND BRIM IR[employer]ER Work Phone: noms CWM FMComment on above:Iron deficiency anemia secondary to inadequate dietary iron intake (Primary Dx); Class 1 obesity due to excess calories without serious comorbidity in adult, unspecified BMI; Cigarette nicotine dependence without complication; B12 deficiency; BMI 32.0-32.9,adultStart: 10-23-2024 End: 07-69-8490Iuykncxib Result EncounterPascale Arana [employer] BRIM IR[employer]ER Work Phone: noms External Department UnsolicitedStart: 10-23-2024 End: 76-43-0227Blahgnhxs Result EncounterPascale Herreraantwon HAND BRIM IRONER Work Phone: noms External Department UnsolicitedStart: 10-23-2024 End: 38-69-0660Wuhupxk encounter Shaniqua De Anda MD Work Phone: noms HealthcareStart: 10-23-2024 End: 62-32-2805OahuyhQkxz Naderer MD Work Phone: noms CWM FMComment on above:URTI (acute upper respiratory infection); Non-recurrent acute suppurative otitis media of both ears without spontaneous rupture of tympanic membranesStart: 10-03-2024 End: 89-05-9825Ydvbswrjg Result EncounterPascale Lastdes [employer] BRIM IR[employer]ER Work Phone: noms External Department UnsolicitedStart: 10-03-2024 End: 12-38-2005Qabwumosm Result EncounterLisa Lastdes [employer] BRIM IR[employer]ER Work Phone: noms External Department UnsolicitedStart: 10-02-2024 End: 62-35-6604Tucrwf outpatient visit 25 minutesGalina Sumit [employer] BRIM IR[employer]ER Work Phone: noms CWM FMComment on above:Gastroesophageal [...] female genital organ; BMI 34.0-34.9,adultStart: 10-02-2024 End: 66-45-2867dbdvfozgqaIWRB AICHHOLZNot AvailableStart: 10-02-2024 End: 59-06-2041Lmeins flowsheetLisa Mezahholz HAND BRIM IR[employer]ER Work Phone: noms CWM FMStart: 10-02-2024 End: 98-87-6870Smzqmj flowsheetLisa Derrickhholz HAND BRIM IR[employer]ER Work Phone: noms CWM FMStart: 09-09-2024 End: 36-72-1056Waowdxxcq Result EncounterGeneric External Data ProviderNOMS External Department UnsolicitedStart: 09-09-2024 End: 16-35-6743Kscalwhyi Result EncounterGeneric External Data ProviderNOMS External Department UnsolicitedStart: 09-06-2024 End: 94-56-0762UucasaDffl Aichholz [employer] BRIM IR[employer]ER Work Phone: NOCS CWM FMComment on above:Environmental and seasonal allergiesStart: 09-05-2024 End: 02-76-9277Vnakhiult Result EncounterGeneric External Data ProviderNOMS External Department UnsolicitedStart: 09-05-2024 End: 19-56-5418Bufhozfdi Result EncounterGeneric External Data ProviderNOMS External Department UnsolicitedStart: 09-04-2024 End: 55-21-4935Gdbxfa outpatient visit 10 minutesBrmanasa Groves HAND BRIM IRONER Work Phone: NOZS CWM FMComment on above:BMI 33.0-33.9,adult (Primary Dx); Bipolar disorder with severe depression (CMS/HCC); Fibromyalgia; Gastro-esophageal reflux disease without esophagitis; Esophageal reflux; BMI 34.0-34.9,adult; Psychophysiological insomnia; Overactive bladder due to prolapse of female genital organStart: 09-04-2024 End: 49-04-5243nvdgeslylyERWEJQGH FITZPATRICKNot AvailableStart: 09-04-2024 End: 96-10-0622Sjdjdh flowsheetBrittany Groves HAND BRIM IRONER Work Phone: NOEX CWM FMStart: 09-04-2024 End: 83-61-8855Cijpol flowsheetBrittany Groves HAND BRIM IRONER Work Phone: NORE CWM FMStart: 08-28-2024 End: 29-91-5008ZjceosTmpfgqpn Groves HAND BRIM IRONER Work Phone: NOMS CWM FMComment on above:FibromyalgiaStart: 08-14-2024 End: 75-09-1217RgmnjmOdqbxxji Groves [employer] BRIM IR[employer]ER Work Phone: NOQM CWM FMComment on above:FibromyalgiaStart: 08-12-2024 End: 85-43-9623Kqizil outpatient visit 25 minutesLisa Sumit HAND BRIM IR[employer]ER Work Phone: NOTA CWM FMComment on above:Acute non-recurrent maxillary sinusitis (Primary Dx); Cigarette nicotine dependence without complication; Class 1 obesity due to excess calories without serious comorbidity in adult, unspecified BMI; Environmental and seasonal allergies; Cutaneous abscess of abdominal wallStart: 08-12-2024 End: 81-09-5813ghtucnahuiFQKH AICHHOLZNot AvailableStart: 08-12-2024 End: 18-08-6240Wixeqb flowsheetLisa Shalaholz HAND BRIM IR[employer]ER Work Phone: noms CWM FMStart: 08-12-2024 End: 36-06-6363Yftrbv flowsheetLisa Shalaholz HAND BRIM IR[employer]ER Work Phone: noms CWM FMStart: 08-12-2024 End: 76-17-9393Fqgpywzi Result EncounterLisa Shalaholz HAND BRIM IR[employer]ER Work Phone: noms External Department UnsolicitedStart: 08-05-2024 End: 67-08-5653Lcmbwr OnlyAngel Luis Blackburnk HAND BRIM IRONER Work Phone: noms CWM FMComment on above:B12 deficiency (Primary Dx); Iron deficiency anemia, unspecified iron deficiency anemia typeStart: 08-01-2024 End: 44-67-3328Rufxglqjw Result EncounterBrmanasa Mathurtrick HAND BRIM IRONER Work Phone: noms External Department UnsolicitedStart: 08-01-2024 End: 33-13-5192Xfflvulwr Result EncounterBrittmelani MathurGroves HAND BRIM IRONER Work Phone: noms External Department UnsolicitedStart: 07-31-2024 End: 62-06-7459Hucoxh outpatient visit 15 minutesBrmanasa Mathurtrick HAND BRIM IR[employer]ER Work Phone: noms CWM FMComment on above:Iron deficiency anemia secondary to inadequate dietary iron intake (Primary Dx); Fibromyalgia; Psychophysiological insomnia; BMI 34.0-34.9,adultStart: 07-31-2024 End: 29-16-6664cosvfmbtvfTIPDURAP FITALEXIATRICKNot AvailableStart: 07-31-2024 End: 80-41-6382Zlsaot flowsheetBrittany Groves HAND BRIM IR[employer]ER Work Phone: NOMS CWM FMStart: 07-31-2024 End: 35-33-1113Aaixoc flowsheetBrittany Groves HAND BRIM IRONER Work Phone: NOMS CWM FMStart: 07-25-2024 End: 79-00-9405XrrgqwLcdkislx Groves HAND BRIM IRONER Work Phone: NOMS CWM FMComment on above:Psychophysiological insomniaStart: 06-25-2024 End: 88-50-2581NqkahjPblwasue Groves HAND BRIM IR[employer]ER Work Phone: NOMS CWM FMComment on above:Psychophysiological insomniaStart: 06-11-2024 End: 57-43-4780Alaxzu OnlyBrittany Groves HAND BRIM IR[employer]ER Work Phone: NOMS CWM FMComment on above:Fibromyalgia (Primary Dx) Start: 06-03-2024 End: 22-33-5848FkxrkpBiughbbb Groves HAND BRIM IR[employer]ER Work Phone: NOMS CWM FMComment on above:FibromyalgiaStart: 05-27-2024 End: 07-02-7944Kacqln OnlyBrittany Groves HAND BRIM IRONER Work Phone: NOMS CWM FMComment on above:Psychophysiological insomnia (Primary Dx)Start: 04-18-2024 End: 28-66-3656yutkyirydnQJ Tyson Nromanjaye Work Phone: [facility] Work Phone: Start: 04-18-2024 End: 61-42-6860Jhngdhg encounter procedureMD Tyson Marquezvincenzo Work Phone: [facility] [address] Work Phone: Start: 04-10-2024 End: 73-71-1556Ttxneh outpatient visit 15 minutesBrittany Groves HAND BRIM IRONER Work Phone: NOMS CWM FMComment on above:Psychophysiological insomnia (Primary Dx); Fibromyalgia; Constipation, unspecified constipation typeStart: 04-10-2024 End: 04-58-7578Ymjcza flowsheetBrittany Groves HAND BRIM IR[employer]ER Work Phone: NOMS CWM FMStart: 04-10-2024 End: 60-69-7710Vbufun flowsheetBrittany Groves HAND BRIM IRONER Work Phone: NOMS CWM FMStart: 03-18-2024 End: 07-84-5767flisbjzeonOryjsrs A. MouchliFacility:[facility] DHStart: 03-18-2024 End: 50-27-0342Fuxesbq encounter Kourtney Palomares [phone]-AwzutBarberton [facility] Start: 03-13-2024 End: 02-50-6801XhsqqpSimdoilf Groves [employer] BRIM IR[employer]ER Work Phone: NOMS CWM FMComment on above:Fibromyalgia (Primary Dx) Start: 03-12-2024 End: 76-18-1237Tlxoji outpatient visit 15 minutesBrittany Groves HAND BRIM IRONER Work Phone: NOKP CWM FMComment on above:Constipation, unspecified constipation type (Primary Dx); FibromyalgiaStart: 03-12-2024 End: 70-15-4728Vqtxcv flowsheetBrittany Groves [employer] BRIM IR[employer]ER Work Phone: NOMS CWM FMStart: 03-12-2024 End: 97-69-1434Iltvnx flowsheetBrittany Groves HAND BRIM IR[employer]ER Work Phone: NOMS CWM FMStart: 08-46-8793wukrgxblieBatgnaj Mouchli Facility:[facility] DHStart: 31-76-4194Sno-patient / Non-visitMD Tyson Collazo Work Phone: [facility] Work Phone: Start: 96-19-2812EwuecmQmqiop Fawwad MD Work Phone: NOEZ CW FMComment on above:Bipolar disorder with severe depression (CMS/HCC)Start: 07-19-2023 End: 33-37-8983vuddkrrpfuTbgksxc R NILLFacility:CD:[id number]: 06-07-2023 End: 29-38-8776hobthipfhsPhwdszp R NILLFacility:[facility] SystemueStart: 06-07-2023 End: 89-09-1894Tadkxyn encounter procedureMichael R NILL General Surgery Nill/Said [place] Start: 02-77-3021htltvwxabeWtectpn MouchliFacility:[facility] Systemtart: 41-68-8443hqvpfgxlguWpmsaja MouchliFacility: Sherrytart: 04-07-2023 End: 19-09-2471vticmyyyzqXWIPKLTYUniversity Hospitals St. [facility] Start: 75-74-0219lxyrgsgrnyRATEKNJRUniversity Hospitals St. [facility] Medical [facility] Start: 05-31-2022 End: 87-57-8284xffnvpsnsvJQ TAMIKO Dickens WESTFacility:H6Lsymu: 05-10-2022 End: 89-49-0012fblbnxmeimUO ELLIOT JOSEFacility:P5Rrvan: 04-19-2022 End: 63-76-8251gcaocszvmgOIRHEZWY CULLENFacility:T9Jdycs: 03-29-2022 End: 88-79-9656dvzqhckcqdGWPGSYKB CULLENFacility:Y5Vyqaq: 03-10-2022 End: 46-98-0120hwhsigajtuCSPMZ Letitia [facility]ITALFac[facility]:V5Khtsx: 68-45-5326Gldpumryz for preprocedural cardiovascular examinationPETER D [facility] Systemtart: 27-58-3527Xdqrplgcc for preprocedural laboratory examinationPETER D [facility] Systemtart: 03-03-2022 End: 94-59-5777zkcwnukejqMTZRX D [facility]ITALFacility:W2Gcxlm: 03-03-2022 End: 77-12-0640Rkurczayb for preprocedural laboratory examinationPETER D [facility]OSPITALFacility:E6Cxacv: 02-22-2022 End: 72-15-7098xdhhrqeffyLERNN D [facility] SYSTEMANDERFacility:N4Ptqry: 02-09-2022 End: 93-79-6326bhyamtmzznFPYNU D [facility] SYSTEMANDERFacility:M1Prrqr: 08-30-2021 End: 27-36-3961gkixdqojcrQsxpq Mariano Other [facility] Generaytor Other Start: 29-54-7770Kgwxqe outpatient visit 15 minutes Kristin BrockG [facility] ClydeStart: 06-07-2021 End: 34-06-5115myiibmcfheOW ROBERTO HOUSEFacility:J1Lmusz: 11-14-2018 End: 08-50-9907Fsmdwtr encounter procedureDEFAULT PHYSICIANFacility:[facility] Procedures DateProcedureProcedure DetailPerforming ClinicianStart: 04-09-2025 End: 17-48-3832Ffdmomblzccqe w/patient 60 minutesGAD (generalized anxiety disorder)Rohan Waters LPCComment on above:JESSIKA (generalized anxiety disorder) ; Severe episode of recurrent major depressive disorder, without psychotic features (HCC); PTSD (post-traumatic stress disorder)Start: 03-25-2025 End: 87-59-3128Kaytdpskkhqll w/patient 60 minutesGAD (generalized anxiety disorder)Rohan Waters LPCComment on above:JESSIKA (generalized anxiety disorder) ; Severe episode of recurrent major depressive disorder, without psychotic features (HCC); PTSD (post-traumatic stress disorder)Start: 03-06-2025 End: 63-90-0712Fuaacanqdho diagnostic evaluationGAD (generalized anxiety disorder)Rohan Waters LPCComment on above:JESSIKA (generalized anxiety disorder) ; Severe episode of recurrent major depressive disorder, without psychotic features (HCC); PTSD (post-traumatic stress disorder)Start: 51-43-1884CMA CBC WITH AUTO DIFFPascale Arana [employer] BRIM IRONER Work Phone: Start: 35-54-7068OLFVBDZZE BLOOD PRESSUREGeneric External Data ProviderStart: 24-52-2434KV FOOT LT MIN 3VGeneric External Data ProviderStart: 23-13-1495UV LUMBAR SPINE WO CONGeneric External Data Provider Start: 89-22-5092Ibc spinal canal cervical w/o contrast matrlGeneric External Data ProviderStart: 01-22-2025 End: 32-38-0493Iuylfofkzmm diagnostic eval w/medical servicesGAD (generalized anxiety disorder)Eunice Dias [facility] Work Phone: comment on above:JESSIKA (generalized anxiety disorder) ; Severe episode of recurrent major depressive disorder, without psychotic features (HCC); PTSD (post-traumatic stress disorder) ; Insomnia, unspecified type; Sleep apnea, unspecified type; Encounter for drug screeningStart: 89-36-9824IBX CBC WITH AUTO DIFFLisa Sumit [employer] BRIM IR[employer]ER Work Phone: Start: 67-03-5645CYE,APTIMA HPV,AGE GDLNLisa Sumit HAND BRIM IR[employer]ER Work Phone: Start: 42-88-3252Slkustvxzxp observation [Identifier] in Cervix by Cyto stainLisa Arana HAND BRIM IR[employer]ER Work Phone: Start: 42-64-6366KZ TOMOSYNTHESIS SCREENING BILisa Sumit [employer]IM [employer]ER Work Phone: Start: 40-62-3863KokspqynrxsYrau Sumit [employer] BRIM [employer]ER Work Phone: Start: 06-04-9215AFA CBC WITH AUTO DIFFLisa Derrickhholz [employer]IM [employer]ER Work Phone: Start: 30-35-2075FC FOOT LT WO CONGeneric External Data ProviderStart: 67-40-7167OE FOOT LT MIN 3VGeneric External Data Provider Start: 65-03-4887TWEWFEK WOUND/ULCER (HTRX)Pascale Arana [employer] BRIM [employer]ER Work Phone: Start: 02-58-3254FBL CBC WITH AUTO DIFFBrittany Groves HAND BRIM IR[employer]ER Work Phone: Start: 60-90-6799YumkoaigcoaIycmlo Fawwad MD Work Phone: Start: 49-22-7814NilinhufvhhdytelgtqoiloreoInegson NILL Start: 29-67-5617Sdxvya of stomachMichael NILL Start: 90-28-4333Oxvcqjapkiopq cystoscopyMichael NILL Start: 80-11-1530Ghelbyoeldezv cystoscopyMichael NILL CholecystectomyMichael NILL H/O: surgeryHistory of reconstructive repair of rectoceleTanya L Muniz DO Work Phone: H/O: surgeryHistory of reconstructive repair of rectoceleJovon Asif MD Work Phone: H/O: surgeryHistory of reconstructive repair of rectoceleKendal Shahab CMALigation of fallopian tubeMichael NILL Repair of cystoceleMichael NILL Plan of Treatment DateCare ActivityDetailAuthorStart: 20-36-5050Ogwdonbdf for malignant neoplasm of colonNOMS HealthcareStart: 56-29-5710Wiacdcydj for malignant neoplasm of cervixNOMS HealthcareStart: 67-51-3290Pwpolov ScreeningTobacco Screening [facility] SystemStart: 02-98-4771Tpsli BMI ScreeningAdult BMI Screening [facility] SystemStart: 01-38-1165Jxbpeod ScreeningTobacco Screening [facility] SystemStart: 97-63-1262Cdhbg BMI ScreeningAdult BMI Screening [facility] SystemStart: 18-10-0773Dvofpec ScreeningTobacco Screening [facility] SystemStart: 87-74-8016Xfswkhavr for malignant neoplasm of breastMammogramNOMS HealthcareStart: 05-28-2025 End: 67-39-4141Xvzcqxe encounter xxcbzttoa63/05/2025 2:30 PM EST Procedure visit [facility] [address] [place] [address] [facility] [place] [id number] Jovon Asif MD [address] [facility] [address] [place] [address] [facility] UrogynStart: 05-21-2025 End: 49-36-2153Lhiouz Work05/21/2025 4:30 PM EDT Social Work [facility] [address] [facility] [address] [place] [phone] Rohan Waters [facility]ENTERROHINIPR [facility] HealthStart: 05-19-2025 End: 34-10-7168Xntnlcs encounter glerdldrb17/27/2025 3:30 PM EDT Office Visit [facility] [address] [facility] [address] [place] [address] Angeli-Macarena Santos, LASER SPECIALIST-OFFSET PRESS ASSISTANT [address] [facility] [address] [place], [id number] [facility] HealthStart: 04-30-2025 End: 01-23-9678Ehyfktk encounter lmnexztsq67/08/2025 4:30 PM EDT Office Visit N[facility] [address] [place] [address] Pascale Arana NP [address] [place] [address] NOMS CWM FMStart: 35-90-2551Jedxadp referralUniversity Hospitals [facility] Work Phone: Start: 04-24-2025 End: 10-84-7338Imdkyx Work04/24/2025 4:30 PM EDT Social Work [facility] [address] [place] [address] [place] [phone] Rohan Waters LPCNO [facility] HealthStart: 04-09-2025 End: 72-83-6057Djklkh WorkNOMS [facility] HealthComment on above:Arrived Start: 04-03-2025 End: 20-00-6573Mabztethrhpj consultation with eozzptx1504/03/2025 9:00 AM EDT Telemedicine [facility] [address] [place] [address] [place] [address] Eunice Dias, PMHNP-BC [address] [place] [address] [place] [address] [facility] HealthStart: 04-02-2025 End: 70-59-0748Kuxlqqy encounter gyvsqeoer01/10/2025 3:00 PM EDT Office Visit [facility] [address] [facility] [address] [place] [phone] Jovon Asif MD [address] [place] [address] [place] [address] [facility] UrogynStart: 03-25-2025 End: 76-11-8747Sdnavz WorkNOWillow Crest Hospital – Miamiyde Behavioral HealthComment on above:Arrived Start: 97-66-6693Oueippaly vaccinationNOPR HealthcareStart: 03-06-2025 End: 74-75-0690Mkepev WorkNOMS CI BHComment on above:ArrivedStart: 02-25-2025 End: 68-97-2829AJR W Auto Differential panel - BloodCBC and differential Lab Routine Iron deficiency anemia secondary to inadequate dietary iron intake Expected: 02/25/2025 (Approximate), Expires: 02/25/2026[facility] Work Phone: Comment on above:Expected: 02/25/2025 (Approximate), Expires: 02/25/2026Start: 02-25-2025 End: 70-44-7117Ncce and Iron binding capacity panel - Serum or PlasmaIron level Lab Routine Iron deficiency anemia secondary to inadequate dietary iron intake Expected:02/25/2025 (Approximate), Expires: 02/25/2026NOMS HealthcareComment on above:Expected: 02/25/2025 (Approximate), Expires: 02/25/2026Start: 02-25-2025 End: 22-49-4496Zcrgbic encounter vaxrnpnjf71/05/2025 11:30 AM EDT [facility] [address] [place] [address] Pascale Arana, HAND BRIM IRONER [address] [place] [phone] [facility] FMStart: 02-24-2025 End: 46-83-7806Efwoqhw encounter procedureNOMS CI BHStart: 02-05-2025 End: 52-85-3040Vcgpmbc encounter rjjirixju56/16/2025 3:20 PM EDT [facility] [address] [place] [address] Pascale Arana, HAND BRIM IR[employer]ER [address] [place] [phone] [facility] FMStart: 01-22-2025 End: 59-52-8459Tsdwcsv encounter procedureNOMS CI BHComment on above:Bipolar disorder with severe depression (HCC)Start: 01-07-2025 End: 62-06-2088XHI W Auto Differential panel - BloodCBC and differential Lab Routine Iron deficiency anemia secondary to inadequate dietary iron intake Expected: 01/07/2025 (Approximate), Expires: 01/07/2026[facility] Work Phone: Comment on above:Expected: 01/07/2025 (Approximate), Expires: 01/07/2026Start: 01-07-2025 End: 36-83-9960Uwdbeljuh (Vitamin B12) [Mass/volume] in Serum or PlasmaVitamin B12 Lab Routine B12 deficiency Iron deficiency anemia secondary to inadequate dietary iron intake Expected: 01/07/2025 (Approximate), Expires: 01/07/2026[facility] HealthcareComment on above:Expected: 01/07/2025 (Approximate), Expires: 01/07/2026Start: 01-07-2025 End: 15-58-8582Tawdpjqn [Mass/volume] in Serum or PlasmaFerritin Lab Routine Iron deficiency anemia secondary to inadequate dietary iron intake Expected: (Approximate), Expires: 01/07/2026[facility] HealthcareComment on above: Expected: 01/07/2025 (Approximate), Expires: 01/07/2026Start: 01-07-2025 End: 50-81-0327Djek + transferrin + TIBCIron + transferrin + TIBC Lab Routine Iron deficiency anemia secondary to inadequate dietary iron intake Expected: 01/07/2025 (Approximate), Expires: 01/07/2026[facility] HealthcareComment on above: Expected: 01/07/2025 (Approximate), Expires: 01/07/2026Start: 01-06-2025 End: 21-46-4251Pflkmjz encounter procedureNOMS [facility] FMComment on above: Gastroesophageal reflux disease, unspecified whether esophagitis present (Primary Dx); Class 1 obesity due to excess calories without serious comorbidity with body mass index (BMI) of 32.0 to 32.9 in adult; Cigarette nicotine dependence without complicationStart: 11-20-2024 End: 95-95-6895Upognkn encounter afeqkeobk20/30/2025 3:20 PM EDT Office Visit [facility] [address] [place] [address] Pascale Arana NP [address] [place] [address] NOMS ERMIAS FMStart: 11-20-2024 End: 14-72-3720JNJP PREP TIS PAP AND HR HPV DNATHIN PREP TIS PAP AND HR HPV DNA Pathology and Cytology Routine Well woman exam with routine gynecological exam Expected: 11/20/2024 (Approximate), Expires: 11/20/2025[facility] Work Phone: Comment on above:Expected: 11/20/2024 (Approximate), Expires: 11/20/2025Start: 10-23-2024 End: 07-82-5354Itofvlg encounter yxxicplrd06/02/2025 5:30 PM EDT Procedure Visit [facility] M [address] [place] [address] Pascale Arana, HAND BRIM IR[employer]ER [address] [place] [address] NOMS CWLashaun FMStart: 75-19-0231Eyqlvdxeg vaccinationInfluenza Vaccine (#1)NOMS HealthcareComment on above:Postponed from 03/24/2024 (Patient Refused)Start: 10-04-2024 End: 69-62-8583LNN W Auto Differential panel - BloodCBC and differential Lab Routine B12 deficiency Iron deficiency anemia, unspecified iron deficiencyanemia type Expected: 10/04/2024 (Approximate), Expires: 08/06/2025[facility] Work Phone: Comment on above:Expected: 10/04/2024 (Approximate), Expires: 08/06/2025Start: 10-04-2024 End: 60-51-0746Dduwrettt (Vitamin B12) [Mass/volume] in Serum or PlasmaVitamin B12 Lab Routine B12 deficiency Iron deficiency anemia, unspecified iron deficiency anemia type Expected: 10/04/2024 (Approximate), Expires: 08/06/2025 NOMS HealthcareComment on above:Expected: 10/04/2024 (Approximate), Expires: 08/06/2025Start: 10-04-2024 End: 49-31-0103Xoptjuhq [Mass/volume] in Serum or PlasmaFerritin Lab Routine B12 deficiency Iron deficiency anemia, unspecified iron deficiency anemia type Expected: 10/04/2024 (Approximate), Expires: 08/06/2025[facility] HealthcareComment on above:Expected: 10/04/2024 (Approximate), Expires: 08/06/2025Start: 10-04-2024 End: 99-77-8736Oaqy + transferrin + TIBCIron + transferrin + TIBC Lab Routine B12 deficiency Iron deficiency anemia, unspecified iron deficiency anemia type Expected: 10/04/2024 (Approximate), Expires: 08/06/2025[facility] HealthcareComment on above:Expected: 10/04/2024 (Approximate), Expires: 08/06/2025Start: 10-02-2024 End: 87-42-8058Luypzlv encounter procedureNOPR CWM FMComment on above:Class 1 obesity due to excess calories without serious comorbidity in adult, unspecified BMI (Primary Dx); Iron deficiency anemia secondary to inadequate dietary iron intake; Cigarette nicotine dependence without complication; Encounter for screening mammogram for malignant neoplasm of breast; B12 deficiencyStart: 10-02-2024 End: 10-33-3418BDB W Auto Differential panel - BloodCBC and differential Lab Routine Iron deficiency anemia secondary to inadequate dietary iron gchmvsX47 deficiency Expected: 10/02/2024 (Approximate), Expires: 10/02/2025[facility] HealthcareComment on above:Expected: 10/02/2024 (Approximate), Expires: 10/02/2025Start: 10-02-2024 End: 34-30-1688Pyyanssqv (Vitamin B12) [Mass/volume] in Serum or PlasmaVitamin B12 Lab Routine B12 deficiency Expected: 10/02/2024 (Approximate), Expires: 10/02/2025[facility] HealthcareComment on above:Expected: 10/02/2024 (Approximate), Expires: 10/02/2025Start: 10-02-2024 End: 74-56-2867Bcembwgn [Mass/volume] in Serum or PlasmaFerritin Lab Routine Iron deficiency anemia secondary to inadequate dietary iron intake Expected: (Approximate), Expires: 10/02/2025[facility] HealthcareComment on above: Expected: 10/02/2024 (Approximate), Expires: 10/02/2025Start: 10-02-2024 End: 61-50-2262Xuqn + transferrin + TIBCIron + transferrin + TIBC Lab Routine Iron deficiency anemia secondary to inadequate dietary iron intake Expected: 10/02/2024 (Approximate), Expires: 10/02/2025[facility] HealthcareComment on above: Expected: 10/02/2024 (Approximate), Expires: 10/02/2025Start: 10-02-2024 End: 25-19-0452ZF Breast - bilateral ScreeningBilateral screening mammogram Imaging Routine Encounter for screening mammogram for malignant neoplasm of breast Expected: 10/02/2024 (Approximate), Expires: 12/02/2025[facility] Work Phone: Comment on above:Expected: 10/02/2024 (Approximate), Expires: 12/02/2025Start: 09-04-2024 End: 79-09-7875Hxyhtbk encounter procedureN[facility] FMComment on above:Arrived Start: 08-12-2024 End: 88-86-2944Rfruuok encounter lbfhslafe94/20/2025 4:00 PM EST Office Visit [facility] [address] [place] [address] Pascale Arana, MARY JO [address] [place] [address] ArrivedNOPH[facility]IC[facility] FMComment on above:ArrivedStart: 08-12-2024 End: 49-47-6491WUUKGOZWFEC WOUND (HTRX)SUPERFICIAL WOUND (HTRX) Lab Routine Cutaneous abscess of abdominal wall Expected: 08/12/2024 (Approximate), Expires: 08/12/2025[facility] Work Phone: Comment on above:Expected: 08/12/2024 (Approximate), Expires: 08/12/2025Start: 07-31-2024 End: 29-01-9691Pybefmw encounter procedureNOPH[facility]IC[facility] FMComment on above:Arrived Start: 07-31-2024 End: 95-60-9221Bekvqpwly (Vitamin B12) [Mass/volume] in Serum or PlasmaVitamin B12 Lab Routine Iron deficiency anemia secondary to inadequate dietary iron intake Expected: 07/31/2024 (Approximate), Expires: 07/31/2025[facility] Comment on above:Expected: 07/31/2024 (Approximate), Expires: 07/31/2025Start: 07-31-2024 End: 06-92-3521Hzujuxnc [Mass/volume] in Serum or PlasmaFerritin Lab Routine Iron deficiency anemia secondary to inadequate dietary iron intake Expected: (Approximate), Expires: 07/31/2025[facility] HealthcareComment on above: Expected: 07/31/2024 (Approximate), Expires: 07/31/2025Start: 07-31-2024 End: 14-56-2976Lilk + transferrin + TIBCIron + transferrin + TIBC Lab Routine Iron deficiency anemia secondary to inadequate dietary iron intake Expected: 07/31/2024 (Approximate), Expires: 07/31/2025[facility] HealthcareComment on above: Expected: 07/31/2024 (Approximate), Expires: 07/31/2025Start: 07-10-2024 End: 98-69-1541Elhzqoa encounter chrhsernn08/18/2024 4:30 PM EST Office Visit [facility] [address] [place] [address] Angel Luis Groves, HAND BRIM IRONER [address] [place] [address] [facility] FMStart: 06-05-2024 End: 41-92-3847Pvgbmni encounter jjlvqykfe38/13/2024 5:30 PM EST Office Visit [facility] [address] [place] [address] Angel Luis Groves, HAND BRIM IRONER [address] [place] [address] [facility] FMStart: 04-10-2024 End: 71-35-1253Zdvefpv encounter procedureNOPHYSICIANS [facility] FMComment on above:Arrived Start: 86-90-6198Cdqixemjq vaccinationInfluenza Vaccine (#1)[facility] Start: 03-12-2024 End: 24-04-7337Qwzdnfb encounter bcnuhfrht30/20/2024 3:30 PM EDT Office Visit [facility] [address] [place] [address] Angel Luis Groves, MARY JO [address] [place] [address] ArrivedNOMS CWM FMComment on above:ArrivedStart: 11-13-2023 End: 35-20-1894Vakenqc encounter tmjwbaglw34/22/2024 4:45 PM EDT Office Visit [facility] [address] [place] [address] Shaikh Main MD [address] [place] [address] NOMScottie MONSON IMStart: 54-78-6020Glbabwpic vaccinationInfluenza Vaccine (#1)[facility] HealthcareStart: 39-62-8236Jtpvwlkbidkhgw of varicella zoster vaccineZoster (Shingles) Vaccine (1 of 2)[facility] SystemStart: 94-24-4138Zasovcped for malignant neoplasm of breastMammogramNOMS Healthcare Start: 51-04-2210Ddfnkslyw for malignant neoplasm of cervixNOMS HealthcareStart: 99-42-9818Lhgoargac for malignant neoplasm of cervixPap SmearNOMS Healthcare Start: 51-98-0621GByX,Tdap and Td Vaccines (1 - Tdap)DTaP,Tdap and Td Vaccines (1 - Tdap)[facility] SystemStart: 54-44-4372Irjsp BMI Follow Up PlanAdult BMI Follow Up PlanC[facility] Clinic [facility] SystemStart: 45-38-9922Tlolgjydfw Screening Depression ScreeningCleveland Clinic [facility] SystemStart: 67-55-0679Nsalankif for malignant neoplasm of colonNOMS HealthcareStart: 58-15-2624Yltqktuae for malignant neoplasm of lungLung Cancer Screening Shared Decision MakingUniversity Health Truman Medical CenterStart: 59-37-5364Zaphxyw CounselingTobacco CounselingPremier HealthCBC W Auto Differential panel - BloodCBC and differential Lab Routine Iron deficiency anemia secondary to inadequate dietary iron intakeOrdered: 07/31/2024[facility] [employer] (Closed) Work Phone: Comment on above:Ordered: 07/31/2024omprehensive metabolic 2000 panel - Serum or PlasmaWvumedicine Harrison Community HospitalDRUG TOX MONITORIGN 6 W/ CONF,URINEDRUG TOX MONITORIGN 6 W/ CONF,URINE Lab Routine Encounter for drug screening Ordered: 01/22/2025[facility] [employer] (Closed) Work Phone: comment on above:Ordered: 01/22/2025Electromyography [facility] HospitalPatient referralUniversity Hospitals Lake [facility] Work Phone: Sjogrens syndrome-A extractable nuclear Ab [Units/volume] [facility]B extractable nuclear Ab [Units/volume] in [facility] Immunizations Immunization DateImmunizationNotesCare ProviderFacilityNEGATED: Highlighted row has not occurred!13-23-8125yezvtfonr virus vaccine, unspecified formulation Segun [facility] Payers DatePayer CategoryPayerPolicy [id number]-[id number] [id number] Managed Care - POS [id number] Care HMO (unspecified)1.2.840.599242.1.13.693.2.7.3.558[id number] 2.16.840.1.281601.3.579.[id number] 2.16.840.1.370368.3.579.2.91770-00-8322Gbmvfzg2160627 2..840.1.928991.3.57[id number] 2..840.1.260047.3.579.2.49546-00-0699Luqiyrf1762121 2.16.840.1.449213.3.579.2.61648-29-9741Cpiakho6916013 2.840.1.500024.3.579.2.20910-92-8434Yaxjplj5751691 2.840.1.371391.3.579.2.09990-34-3788Dmbjgpx8666888 2.840.1.679966.3.579.2.19632-96-8436Izyntmi6966848 2.840.1.872251.3.579.2.07810-78-1898Gqajnxi2301517 2.840.1.518830.3.579.2.03996-25-8650Pxsxenx46759263 2.840.1.354877.3.579.2.94277-80-2490Fqnjtcg69784514 2.840.1.036298.3.579.2.85221-67-9352Jpzmzjt66950419 2.840.1.231009.3.579.2.09693-61-6673Xpqzipv53793375 2.840.1.730575.3.579.[id number] 2.840.1.077957.3.579.2.83868-00-7542Uwvonxe133349022 2.840.1.643142.3.579.2.364520-81-6547Fqqjrze477700837 2.840.1.913305.3.579.2.980092-11-1889Mgdomxd82972816 2.840.1.206369.3.579.2.333636-69-4427Jffwjtj29301472 2.840.1.453850.3.579.2.133720-40-2401Ffuqbsq92537242 2.840.1.000123.3.579.2.629109-02-9261Ihzkrkw68672411 2.0.1.574566.3.579.2.043190-46-6845Sdcuzll84416235 2..1.729618.3.579.2.344253-05-0745Dczrbpj41626094 2..1.943382.3.579.2.198118-42-2079Iendhyb96626724 2..1.659154.3.579.2.028775-73-5265Cfngwbo04847168 2..1.926391.3.579.2.583035-53-5019Peiwafg7905232 2..1.064729.3.579.2.502365-40-5543Aigzyde6342975 2..1.680162.3.579.2.927960-48-8357Csndaal6959343 2..1.168992.3.579.2.427266-18-7841Nhdgvos0022263 2..1.113429.3.579.2.047680-30-5867Uoutevv3245079 2..1.573878.3.579.2.062062-04-2200Cwgrfwb0099931 2.0.1.065984.3.579.2.887025-64-8183Hofcxlw292685893 2.0.1.308607.3.579.2.61549-58-9950Yolncwj120266696 2..840.1.329063.3.579.2.09200-74-5815Lyzzddx097504650 2.16.840.1.439295.3.579.2.64793-26-7679Zqghybp Health VmhyvfpeyH700873430 2..840.1.461705.55ZoefwdcFknwhsq50432016 2.840.1.438995.3.579.2.531 Social History DateTypeDetailFacilityUnknown if ever smokedNoresearch psychiatric center 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 Other Start: 09-03-2020 End: 63-47-4349Wwi Assigned At [facility] Hospitaltart: 06-07-2023 End: 85-40-6210Sqxeqwn smoking statusHeavy tobacco smoker (finding)[facility]vueTobacco smoking statusFormer smokeless tobacco user, quit more than 30 days agoGeneral Surgery BellevueStart: 07-04-2023 End: 79-11-6339Lgrbrpk smoking status NHISSmokes tobacco dailyNOMS Healthcare Start: 87-54-3079Dpsxxub of tobacco useCigarette SmokerNOMS HealthcareStart: 09-03-2020 End: 72-92-0769Tohxwhiyrr smoked current (pack per day) - Ooddwtgx2WFOH HealthcareStart: 07-04-2023 End: 52-22-2615Raskfhc use and exposureSmokeless tobacco non-userN[facility]S Healthcare Start: 08-14-2023 End: 16-00-7693Lsydlrb intakeLifetime non-drinker (finding)[facility] HealthcareWithin the last year, [...] the time - these days [OSQ]To some extentNOPR Healthcare(I/We) worried whether (my/our) food would run out before (I/we) got money to buy more.Never trueNOMS HealthcareStart: 81-23-2181Xrzulqp CommentThinking about quittingNOMS HealthcareStart: 10-05-1132Wjafxod Commentcaffeine: 3-4 cups per dayNOMS HealthcareStart: 10-55-0254Xzl Assigned At BirthNot on fileNOMS HealthcareStart: 35-77-2430Fiw Assigned At [facility] CenterFeHolzer Health SystemHistory of tobacco usePassive smokerNOPR HealthcareStart: 01-22-2025 End: 21-74-0867Vupbevznh beverage intakeEx-drinker (finding)[facility] Start: 20-69-7756SyqAdabrw (finding)[facility] SystemStart: 02-24-2025 End: 86-99-3078Oqdqidwfg beverage intakeCurrent drinker of alcohol (finding) [facility] Goals DatePatient GoalDesired Activity/StatePersonal health goal Functional Status ChgpQlhznnquzpRdlrrqKgibsgxc31-91-3735Abqgjlcezwx anxiety disorder 7 item (JESSIKA-7)[facility] Medical CenterJtthxybqgm74-68-1043Toyehvb Health Questionnaire 2 item (PHQ-2) [Reported][facility] Medical CenterShwkwbwswk83-76-1472PZZ-6 quick depression assessment panel [Reported.PHQ][facility] CenterPwvvoebalu15-73-6451Wjlkdnxthy StatusN/[facility] Digestive Blkwva36-14-8771Jjynpdazsf StatusN/AGen[facility] [place] Clinical Notes 08-30-2021 to 05-02-2025 Note Date & NrsoQyloTjtfpvvn39-24-2514 Miscellaneous Notes* Telephone Encounter - Areli Gudino [...] to their preferred pharmacy. documented in this encounterPremier Health10-10-2025 Telephone encounter Note* Telephone Encounter - Areli Gudino CMA - 05/02/2025 1:01 PM EDT Patient called to say she is on Tolterodine for her OAB but is having worse incontinence. She has UDS scheduled in May but her PCP wants to see if she can be put on something else as the currentmed is the highest dose. Please advise. [facility]10-10-2025 Telephone encounter Note* Telephone Encounter - Jovon Asif MD - 05/02/2025 1:01 PM EDT Myrbetriq 50 milligrams once daily, dispense 30 tablets, 5 refills. [facility] [employer] Rsqyfe10-70-8967 Telephone encounter Note* Telephone Encounter - Areli Gudino CMA - 05/02/2025 1:01 PM EDT Called patient and sent in Myrbetriq to their preferred pharmacy. [facility] [employer] Hnwsro57-61-6101 History of Present illness Narrative* Eunice Dias, PMHNP-BC - 04/03/2025 9:00 AM EDT Images from the original note were not included. HPI: Talia Rutherford is a 54 y.o. female with a history of Fibromyalgia, gastric bypass (2019), sleep apnea (does not wear CPAP), MDD, JESSIKA, PTSD, and Insomnia. Patient is here today for follow-up via telehealth. Location of patient: Home; located in [place] Location of provider: Office; located in [place], [place] Patient seen via: [employer] [facility]; audio and video utilized Reason for [...] is recently got established with Rohan Waters [facility] on [facility] for counseling. She [...] Practitioner (Behavioral Health) Rohan Waters LPC as Process Worker (Behavioral Health) PSYCHIATRIC REVIEW OF SYMPTOMS AND [...] she will need to follow-up with other manager psychiatry in the future due to medication adjustment [...] care as described above. documented in this encounterUniversity Health Truman Medical CenterZfqvrjdvko28-78-2188 History of Present illness Narrative* Margot Marsh DO - 04/02/2025 3:00 PM EDT SUBJECTIVE Chief Complaint: cystocele HPI Ms. Talia Rutherford is a , 54 y.o. female who is referred by Shelia Muniz DO for cystocele. The patient reports history of rectocele repair in 2021 at [facility]. She notes a bulge on a [...] pessary previously. Gynecology provider: Dr. Muniz. 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 She [...] given by office. Patient was given a [employer] voucher to use, this is not to [...] Margot Marsh DO ObGyn Resident, PGY-3 * Jovno Asif MD - 04/02/2025 3:00 PM EDT [...] diarrhea, fecal incontinence. She is SA. 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 Past [...] with second degree uterine prolapse (Primary) - [facility] - Urogynecology - [place], [place] - Measure post void residual 2. History of reconstructive repair of rectocele - [facility] - Urogynecology - [place], [place] - Measure post void residual 3. Urge urinary incontinence - [facility] Urogynecology - [place], [place] - Measure post void residual She [...] good candidate for minimally invasive hysterectomy with lovelock tissue repair. We will discuss further at her next visit. documented in this encounterPremier Health09-02-2025 Evaluation note* Diagnosis Onset Date Resolution Status Admit Date Carpal tunnel syndrome of right wrist acuteSeptember 2024 8:29amCervical stenosis of spineacuteSeptember 2024 8:29amPiriformis syndrome of right sideacuteSeptember 2024 8:29am [facility] Work Phone: 1(188) 312-464409-02-2025 Evaluation note* Diagnosis Onset Date Resolution Status Admit Date Carpal tunnel syndrome of right wrist acuteSeptember 2024 8:29amCervical stenosis of spineacuteSeptember 2024 8:29amPiriformis syndrome of right sideacuteSeptember 2024 8:29amClass 1 obesity due to excess calories without serious comorbidity in adultacute April 30, 2025 4:13pmFibromyalgiaacuteOctober 2024 4:13pmGERD without esophagitisacuteOctober 2024 4:13pmIDA (iron deficiency anemia)acuteOctober 2024 4:13pmNicotine dependenceacuteOctober 2024 4:13pm [facility] Work Phone: 1(910) 499-517909-02-2025 Evaluation note* Diagnosis Onset Date Resolution Status [...] 4:13pmAbdominal painacuteOctober 2024 2:21pm BloatingacuteOctober 2024 2:21pm [facility] Work Phone: 1(193) 378-939908-05-2025 History of Present illness Narrative* Pascale Arana NP - 02/25/2025 12:44 PM EDTAssociated Problem(s): Insomnia Current med: ambien Worse with depression/anxiety Cont working with psych * LIZANDOR PICKARD - 02/25/2025 11:30 AM EDT 5 [...] for last several weeks, she has seen manager psychiatry, meds changed and she is now onVraylar, [...] of the risks of continued smoking: stroke, RI, all forms of cancer, lung disease, and [...] of the risks of continued smoking: stroke, RI, all forms of cancer, lung disease, and . Options for quitting smoking include: cold turkey, hypnosis, acupuncture, nicotine replacement meds(gum, lozenges, and patches), Buproprion, and Varenicline. At this time pt is encouraged to evaluate their goals for wanting to quit smoking, and reach out toprovider when ready to start this process documented in this [facility]08-05-2025 Instructions* Patient Instructions* Pascale Arana NP - 02/25/2025 11:30 AM EDT Off work RTW date 03/25/25 documented in this [facility]08-04-2025 History of Present illness Narrative* Eunice [...] Sheis working with the pain specialist at [facility] in hopes to get an epidural in [...] care as described above. documented in this encounterUniversity Health Truman Medical CenterAiczazkbsx55-18-8378 History of Present illness Narrative* Shelia Muniz [...] if mesh was utilized documented in this encounterPremier Health07-02-2025 History of Present illness Narrative* Eunice Dias, [...] siblings and him having another family in [place]. She describes her mood as sad, anxious, [...] (11) who also lives there. 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 Has been with [employer] for 15 years. She states sheis currently [...] Mother Marlyn Diabetes Father Roberto Hypertension Father Robetro Heart disease Father Roberto Stroke Father Roberto [...] the local ER or call Suicide Hotline (149) for any psychosis, suicidal or homicidal ideation, or with any risk of harm to self or others. Patient was seen Face to Face, Total time spent with patient was 60 minutes, which includes reviewing chart documents, previous notes/records, counseling and discussion with patient and/or coordination of care as described above. documented in this [facility]06-16-2025 Telephone encounter Note* Telephone Encounter - Pascale Arana NP - 01/06/2025 6:12 PM EDT Pt states she was not contacted about her iron infusion can we check with TB about this [place] [facility] CenterMvkhswxkut74-19-1803 Miscellaneous Notes* Telephone Encounter - Pascale Arana NP - 01/06/2025 6:12 PM EDT Pt states she was not contacted about her iron infusion can we check with TB about this [place] documented in this [facility]06-16-2025 History of Present illness Narrative* Pascale [...] 7=21 and PHQ 9=25 * Pascale Arana, HAND BRIM IRONER - 01/06/2025 4:30 PM EDT Images from [...] of the risks of continued smoking: stroke, RI, all forms of cancer, lung disease, and [...] of the risks of continued smoking: stroke, RI, all forms of cancer, lung disease, and [...] possible Current med: pantoprazole documented in this encounterUniversity Health Truman Medical CenterFwteoicuxz35-68-4210 Instructions* Patient Instructions* Pascale Arana NP - 01/06/2025 4:30 PM EDT Discontinue the citalopram Start lamotrigine 1 pill at night for 2 weeks, then increase to 1 pill twice a day after that documented in this [facility]05-28-2025 Telephone encounter Note* Telephone Encounter - LIZANDRO PICKARD - 12/18/2024 10:48 AM EDT [place]. This is Steve at [facility] calling in regards to 1 of Pascale giraldo's patients. Her name is Talia Gipson, and we need to clarify some orders with her. She is supposed to be coming later today. Give us a call back as soon as possible. [phone], extension [phone],thank you. [facility] Leemspnsba15-40-9668 Miscellaneous Notes* Telephone Encounter - LIZANDRO PICKARD - 12/18/2024 10:48 AM EDT [place]. This is Steve at [facility] calling in regards to 1 of Pascale giraldo's patients. Her name is Talia Gipson, and we need to clarify some orders with her. She is supposed to be coming later today. Give us a call back as soon as possible. [phone], extension [phone],thank you. documented in this [facility]04-30-2025 History of Present illness Narrative* Pascale [...] they will approve Infed, I did contact [facility] 11/19/24 they can order it, [...] nursing note reviewed. Exam conducted with a choral director present. Constitutional: General: She is not in [...] (Adipex-P) 37.5 MG tablet documented in this [facility]04-30-2025 Instructions* Patient Instructions* Pascale Arana NP - 11/20/2024 3:20 PM EDT Citalopram: currently on 40mg daily, cut pill in half so only at 20mg dose Stop the lanxoprazole, and will trial pantoprazole 40mg daily GERD and if not better at fu appt we will refer to GI We will call about PAP smear results documented in this [facility]04-02-2025 History of Present illness Narrative* Pascale [...] of the risks of continued smoking: stroke, RI, all forms of cancer, lung disease, and [...] of the risks of continued smoking: stroke, RI, all forms of cancer, lung disease, and [...] and sugary drinks. Pt meets qualifications of [facility] 4731-05-27 for weight loss. BMI>30 or >27 [...] Starting weight was 206 documented in this encounterUniversity Health Truman Medical CenterBwwqeknxkj40-91-9434 History of Present illness Narrative* Pascale Arana [...] of the risks of continued smoking: stroke, RI, all forms of cancer, lung disease, and [...] of the risks of continued smoking: stroke, RI, all forms of cancer, lung disease, and [...] and sugary drinks. Pt meets qualifications of [facility] 4731-05-27 for weight loss. BMI>30 or >27 with comorbid conditions. Notify office with any symptoms of chest pain, dyspnea, heart palpitations, or any anxiety symptoms. F/U in 4 weeks to document weight loss. Increase physical activity as tolerated, and lower caloric intake to 1600 calories daily if no contraindications OARRS reviewed Started on adipex in 09/17: starting weight 200 lbs documented in this [facility]03-12-2025 Instructions* Patient Instructions* Pascale Arana NP - 10/02/2024 5:00 PM EDT Check labs Mammogram: will send to [facility] PAP documented in this [facility]02-12-2025 Instructions* Patient Instructions* Angel Luis Groves NP - 09/04/2024 5:00 PM EST Keep up the good work!!! documented in this [facility]01-22-2025 Telephone encounter Note* Telephone Encounter - Nupur Oneal - 08/14/2024 11:46 AM EST Patient said her dose was increased and now she is out of this medication. Can you please refill. ANAYELI [facility] CenterTyjfwjyqpw20-64-3681 Miscellaneous Notes* Telephone Encounter - Nupur Oneal - 08/14/2024 11:46 AM EST Patient said her dose was increased and now she is out of this medication. Can you please refill. ANAYELI documented in this encounterUniversity Health Truman Medical CenterTtkautjreg32-81-1119 History of Present illness Narrative* Pascale Arana [...] of the risks of continued smoking: stroke, RI, all forms of cancer, lung disease, and [...] of the risks of continued smoking: stroke, RI, all forms of cancer, lung disease, and [...] Orders SUPERFICIAL WOUND (HTRX) documented in this encounterUniversity Health Truman Medical CenterZtnvekuuhh63-22-5594 Instructions* Patient Instructions* Pascale Arana NP - 08/12/2024 4:00 PM EST Z pack, finish this Fluids, rest Cont layla and we will add flonase nasal spray Warm compress to affected area, will treat based on culture report documented in this encounterUniversity Health Truman Medical CenterOeiwxcqxoc81-11-0350 History of Present illness Narrative* Angel Luis [...] (Adipex-P) 37.5 MG tablet documented in this [facility]01-08-2025 Instructions* Patient Instructions* Angel Luis Groves NP - 07/31/2024 3:00 PM EST Notify office with any symptoms of chest pain, dyspnea, heart palpitations, or any anxiety symptoms. F/U in 4 weeks to document weight loss. Increase physical activity as tolerated, and lower caloricintake to 1600 calories daily if no contraindications. documented in this [facility]01-01-2025 History of Present illness Narrative* Angel [...] into month two. Pt meets qualifications of [facility] 4731-05-27 for weight loss. BMI>30 or >27 [...] into month two. Pt meets qualifications of [facility] 4731-05-27 for weight loss. BMI>30 or >27 with comorbid conditions. Blood pressure WNL. Notify office with any symptoms of chest pain, dyspnea, heart palpitations, or any anxiety symptoms. F/U in 4 weeks to document weight loss. Increase physical activity as tolerated, and lower caloric intake to 1600 calories daily if no contraindications. documented in this [facility]11-11-2024 Telephone encounter Note* Telephone Encounter - Mar Powers MA - 06/03/2024 9:10 AM EST Pt takes the 60mg in morning and 30 mg in the afternoon, so both. [facility] CenterCzguypwreh23-24-1574 Miscellaneous Notes* Telephone Encounter - Mar Powers MA - 06/03/2024 9:10 AM EST Pt takes the 60mg in morning and 30 mg in the afternoon, so both. * Telephone Encounter - Nupur Oneal - 06/03/2024 8:50 AM EST Patient is asking for a 90 day supply. Patient said 60 mg were denied. documented in this [facility]11-11-2024 Telephone encounter Note* Telephone Encounter - Nupur Oneal - 06/03/2024 8:50 AM EST Patient is asking for a 90 day supply. Patient said 60 mg were denied. NOMS [id number] History of Present illness Narrative* Angel Luis [...] pain has since resolved. documented in this encounterUniversity Health Truman Medical [id number] History of Present illness Narrative* Angel Luis [...] ABDOMINAL PAIN. PT SCHEDULED TO SEE [facility] [place] ON 03/18 AT 1500. ). HPI IS here today for one week follow-up for constipation. 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 Went on vacation to in [facility] [place] for the weekend and had X3 BM's. Denies blood in stool. States she has been stressed recentlty and feels being away heloped her relax and she was finally able to pass BM. Sees GI in [place] on Sunday 03/18 @ 3pm. Still has [...] with GI next week. documented in this encounterUniversity Health Truman Medical [id number] Instructions* Patient Instructions* Angel Luis Groves NP - 03/12/2024 3:30 PM EDT Referral sent to Rheumatology- Dr. Muller in [place], [place]- they will call you! Have mammogram completed. Call if you need anything! documented in this encounterUniversity Health Truman Medical [id number] NoteChief Complaint consultation for colonoscopy HPI Staff [...] fibromyalgia, referred for severe anemia, admitted to [facility] in January with hb of 5; [...] mg Cap-DR, 30 mg= (more content not included)...[facility] HospitalComment on above:Result Comment: Electronically Signed By: AMIE WELLER, Segun Qureshi.meena\Date and Time Signed: 06/07/23 17:17 [id number] Evaluation + Plan note Diagnostic Tests Pending [...] Palpitations -Resolved, likely exacerbated (more content not included)...[facility]09-15-2023 NotePatient here for 2 mo follow up [...] Systems All other systems reviewed and are negative.[facility] 02-08-2023 NoteCardiovascular Medicine [facility] SUBJECTIVE Chief Complaint Patient presents with Establish [...] about 6 weeks (around 03/22/2023). Carol Webb APRN-[facility]Sum[facility]11-08-2022 Note PROCEDURE: XR FOOT LT MIN 3 [...] IMPRESSION: Stable postsurgical changes Electronically authenticated by: TMAIKO NETTLES Date: 2022-05-31 20:30[facility]10-19-2022 NotePROCEDURE: XR FOOT LT MIN 3 VIEWS [...] authenticated by: ELLIOT JOSE Date: 2022-05-11 16:14[facility]09-27-2022 NotePROCEDURE: XR FOOT LT MIN 3 VIEWS [...] Electronically authenticated by: TAMIKO NETTLES Date: 2022-04-19 18:16[facility]09-07-2022 NotePROCEDURE: XR FOOT LT MIN 3 VIEWS [...] Electronically authenticated by: TAMIKO NETTLES Date: 2022-03-30 06:41[facility]08-19-2022 NotePROCEDURE: XR FOOT LT MIN 3 VIEWS [...] authenticated by: ELLIOT JOSE Date: 2022-03-11 08:26[facility]08-19-2022 NotePROCEDURE: XR FOOT LT 2V HISTORY: Pain COMPARISON: XR foot left 02/09/2022 FINDINGS: BONES:Multiple intraoperative images demonstrate mechanical fusion of the second and third tarsal-metatarsal joints. SOFT TISSUES:Expected intraoperative findings. EFFUSION:None visible. OTHER: Negative. IMPRESSION: 1. Mechanical fusion of second and third tarsal-metatarsal joints. Electronically authenticated by: ELLIOT JOSE Date: 2022-03-11 07:55[facility]07-21-2022 NotePROCEDURE: XR FOOT LT MIN 3 VIEWS COMPARISON: 12/15/2020 HISTORY: Pain FINDINGS: BONES:No acute fracture or dislocation. Stable moderate degenerative changes most significant at the tarsometatarsal joints. Moderate plantar enthesopathic spurring of the calcaneus SOFT TISSUES:Negative. No visible soft tissue swelling. EFFUSION:None visible. OTHER: Negative. IMPRESSION: Stable moderate degenerative changes Electronically authenticated by: TAMIKO NETTLES Date: 2022-02-10 07:37[facility]02-07-2022 Evaluation note* Encounter Date Diagnosis Assessment Notes [...] Patient care instructions given in writting by [facility] Care At Home document Neurodyn Other Evaluation note* Diagnosis Bipolar disorder with severe depression (CMS/HCC) documented in this encounter [facility] HealthcareEvaluation noteNo assessment information availableSt. Charles Hospital Ctr Work Phone: Evaluation note* Diagnosis [...] Primary Screening for diabetes mellitus Seizure-like activity ([facility]) Fluid level behind tympanic membrane of [...] in full remission, most recent episode depressed ([facility]) Psychophysiological insomnia Persistent disorder of initiating or maintaining sleep B12 deficiency Fibromyalgia Unspecified myalgia and myositis Screening mammogram for breast cancer Bipolar disorder, current episode depressed, severe, without psychotic features ([facility]) Psychophysiological insomnia Persistent disorder of initiating or maintaining sleep Fibromyalgia Unspecified myalgia and myositis Iron deficiency anemia secondary to inadequate dietary iron intake B12 deficiency B12 deficiency- Primary Bipolar disorder, current episode depressed, severe, without psychotic features ([facility]) Psychophysiological insomnia Persistent disorder of initiating [...] gastric bypass Bipolar disorder with severe depression ([facility]) Encounter for screening mammogram for breast cancer- Primary Screening for diabetes mellitus Seizure-like activity ([facility]) Fluid level behind tympanic membrane of [...] in full remission, most recent episode depressed ([facility]) Psychophysiological insomnia Persistent disorder of initiating [...] gastric bypass Bipolar disorder with severe depression ([facility]/HCC) Encounter for screening mammogram for breast cancer- Primary Screening for diabetes mellitus Seizure-like activity ([facility]/HCC) Fluid level behind tympanic membrane of both [...] in full remission, most recent episode depressed ([facility]) Psychophysiological insomnia Persistent disorder of initiating or maintaining sleep B12 deficiency Fibromyalgia Unspecified myalgia and myositis Screening mammogram for breast cancer Bipolar disorder, current episode depressed, severe, without psychotic features ([facility]/HCC) Psychophysiological insomnia Persistent disorder of initiating or maintaining sleep Fibromyalgia Unspecified myalgia and myositis Iron deficiency anemia secondary to inadequate dietary iron intake B12 deficiency B12 deficiency- Primary Bipolar disorder, current episode depressed, severe, without psychotic features ([facility]/HCC) Psychophysiological insomnia Persistent disorder of initiating or [...] gastric bypass Bipolar disorder with severe depression ([facility]/HCC) Encounter for screening mammogram for breast cancer- [...] Primary Screening for diabetes mellitus Seizure-like activity ([facility]/HCC) Fluid level behind tympanic membrane of both [...] in full remission, most recent episode depressed ([facility]/HCC) Psychophysiological insomnia Persistent disorder of initiating or [...] current episode depressed, severe, without psychotic features ([facility]/HCC) Psychophysiological insomnia Persistent disorder of initiating or [...] Primary Screening for diabetes mellitus Seizure-like activity ([facility]) Fluid level behind tympanic membrane of [...] deficiency BMI 32.0-32.9,adult documented in this encounter [facility] HealthcareEvaluation note* Diagnosis Breast screening- Primary [...] female genital organ documented in this encounter [facility] HealthcareEvaluation note* Diagnosis Breast screening- Primary [...] whether esophagitis present documented in this encounter [facility] HealthcareEvaluation note* Diagnosis Breast screening- Primary [...] Primary Screening for diabetes mellitus Seizure-like activity ([facility]) Fluid level behind tympanic membrane of [...] in full remission, most recent episode depressed ([facility]) Psychophysiological insomnia Persistent disorder of initiating or maintaining sleep B12 deficiency Fibromyalgia Unspecified myalgia and myositis Screening mammogram for breast cancer Bipolar disorder with severe depression ([facility]/HCC)- Primary Psychophysiological insomnia Persistent disorder of initiating [...] of tympanic membranes documented in this encounter [facility] HealthcareEvaluation note* Diagnosis Breast screening- Primary [...] gastric bypass Bipolar disorder with severe depression ([facility]/HCC) Encounter for screening mammogram for breast cancer- Primary Screening for diabetes mellitus Seizure-like activity ([facility]) Fluid level behind tympanic membrane of [...] for diabetes mellitus Seizure-like activity ([facility]) Fluid level behind tympanic membrane of [...] of tympanic membranes documented in this encounter [facility] HealthcareEvaluation note* Diagnosis Cystocele with second degree uterine prolapse- Primary History of reconstructive repair of rectocele Urge urinary incontinence Urge incontinence Incomplete emptying of bladder Incomplete bladder emptying Atrophic vaginitis Postmenopausal atrophic vaginitis documented in this encounter [facility] SystemEvaluation note* Diagnosis Breast screening- Primary [...] Cervical stenosis of spine acuteSeptember 2024 8:29am [facility] Work Phone: Evaluation note* Diagnosis Breast screening- [...] incontinence Urge incontinence documented [facility] this [facility]* Diagnosis Breast screening- Primary Breast [...] Description Date Medical History anxiety Medical HistoryGERD Neurodyn Other Hospital course Narrative No data available for this section General Surgery [facility] Discharge instructions No data available for this section General Surgery So[facility]oz Instructions* Attachments The following attachments cannot be sent through Care Everywhere. * Pelvic floor muscle exercises (Guyanese) documented in this encounterProSemtronics Microsystems SystemInstructionsNot on file documented in this encounterSpringfield HospitalSemtronics Microsystems SystemInstructionsNot on file documented in this encounterSpringfield HospitalSemtronics Microsystems SystemInstructionsNot on file documented in this encounterSpringfield HospitalSemtronics Microsystems SystemProgress note No data available for this section General Surgery [facility] Reason for referral (narrative)* Consultation (Routine) - Pending ReviewSpecialtyDiagnoses / ProceduresReferred By ContactReferred To ContactRheumatology Diagnoses Fibromyalgia Procedures [place] OFFICE/OUTPATIENT NEW HIGH [facility] 60 MINUTES Angel Luis Groves NP [address] [place] [address] Tyson Collazo MD [address] [place] [address] Referral IDStatusReasonStart DateExpiration DateVisits RequestedVisits [id number] Review Specialty Services Required / Scheduling Instructions Please include OV note from today And labs from 07/28/2023 CHERYL MonteroRerochelle for referral (narrative)No reason for referral information availableUniversity Hospitals [facility] Center Work Phone: Reason for visit Narrative* Consultation (Routine) - ClosedSpecialtyDiagnoses / ProceduresReferred By ContactReferred To Contact Urogynecology / Gynecology Diagnoses Cystocele with second degree uterine prolapse History of reconstructive repair of rectocele Urge urinary incontinence Shelia Muniz DO [address] [place] [address] Phone: tel: fax: Jovon Asif MD [address], [address] [address] Phone: tel: fax: Referral IDStatusReasonStart DateExpiration DateVisits RequestedVisits [id number] Specialty Services Required / [facility] Summary Purpose Family History No [...] DATE CREATED AUTHOR 11/16/2018 [facility] DATE CREATED AUTHOR AUTHOR'S ORGANIZ ATION 06/05/2022 [facility] DATE CREATED AUTHOR AUTHOR'S ORGANIZ ATION 04/09/2023 [facility] DATE CREATED AUTHOR AUTHOR'S ORGANIZ ATION 03/20/2024 [facility] DATE CREATED AUTHOR AUTHOR'S ORGANIZ ATION [address] [facility] DATE CREATED AUTHOR AUTHOR'S ORGANIZ ATION 04/11/2025 [facility] DATE CREATED AUTHOR AUTHOR'S ORGANIZ ATION 05/04/2025 [facility] DATE CREATED AUTHOR AUTHOR'S ORGANIZ ATION 05/10/2025 [facility] REASON FOR VISIT (unrecogniz ed section and content) ReasonCommentsMed RefillReasonOnset DateCommentsMed Uvguqo0506/03/2024easonOnset DateCommentsMed Vycgit514ReasonCommentsFollow-upCONSTIPATION, PT HAS HAD THREE BM'S SINCE LAST VISIT. PT IS STILL HAVING ABDOMINAL PAIN. PT SCHEDULED TO SEE GUDELIA GONZALEZ ON 03/18 AT 1500.ReasonCommentsFollow-upReasonOnset DateComments Med Hunycz7807/25/2024ReasonCommentsFollow-up3 mHot flashesReasonCommentsSore ThroatReasonOnset DateCommentsMed Tviydn6008/14/2024ReasonCommentsWeight Check ReasonOnset DateCommentsMed Kyrdqo1109/06/2024ReasonOnset DateCommentsMed Refill 10/23/2024ReasonOnset DateCommentsMed Lroxil6811/18/2024ReasonCommentsWeight Check ReasonCommentsPsychiatric EvaluationSpecialtyDiagnoses / ProceduresReferred By ContactReferred To ContactBehavioral Health Diagnoses Bipolar disorder with severe depression (HCC) Procedures [place] OFFICE/OUTPATIENT NEW HIGH [facility] 60 MINUTES Pascale Arana, MARY JO [address] [place] [address] Phone: tel: fax: Eunice Dias, PMHNP-BC [address] [facility] [address] [place] [address] Phone: tel: fax: Referral IDStatusReasonStart DateExpiration DateVisits RequestedVisits [id number] Specialty Services Required [id number] PatientNew Patient presents for evaluation of a [...] Date Molina De Anda MD [address] [place] [address] PCP - Generalmily Medicine02/21/24 Angel Luis Groves NP [address] [place] [address] Nurse PractitionerFaohly Medicine02/21/24Team MemberRelationshipSpecialtyStart DateEnd Date Molina De Anda MD [address] [place] [address] PCP - Generalmily Medicine02/21/24 Angel Luis Groves NP [address] [place] [address] Nurse PractitionerEmory University Orthopa[facility]02/21/24Team MemberRelationshipSpecialtyStart DateEnd Date Molina De Anda MD [address] [place] [address] PCP - GeneralEmory University Orthopa[facility] & Spine Hospital02/21/24 Angel Luis Groves NP [address] [place] [address] Nurse PractitionerEmory University [facility]02/21/24Team MemberRelationshipSpecialtyStart DateEnd Date Molina De Anda MD [address] [place] [address] PCP - GeneralEmory University [facility] & [facility]ine [facility]02/21/24 Angel Luis Groves NP [address] [place] [address] Nurse PractitionerEmory University [facility]02/21/24Team MemberRelationshipSpecialtyStart DateEnd Date Molina De Anda MD [address] [place] [address] PCP - GeneralEmory University [facility] & [facility]ine Hospital02/21/24 Angel Luis Groves NP [address] [place] [address] Nurse PractitionerEmory University [facility]02/21/24Team MemberRelationshipSpecialtyStart DateEnd Date Molina De Anda MD [address] [place] [address] PCP - Generalmily Medicine02/21/24 Angel Luis Groves NP [address] [place] [address] Nurse PractitionerEmory University [facility]02/21/24Team MemberRelationshipSpecialtyStart DateEnd Date Molina De Anda MD [address] [place] [address] PCP - GeneralEmory University [facility] & [facility]ine [facility]02/21/24 Angel Luis Groves NP [address] [place] [address] Nurse PractitionerEmory University [facility]02/21/24Team MemberRelationshipSpecialtyStart DateEnd Date Molina De Anda MD [address] [place] [address] PCP - Generalmi Medicine02/21/24 Angel Luis Groves, MARY JO [address] [place] [address] Nurse PractitionerAddison [facility] Medicine02/21/24Team MemberRelationshipSpecialtyStart DateEnd Date Molina De Anda MD [address] [place] [address] PCP - Generalmi Medicine02/21/24 Angel Luis Groves NP [address] [place] [address] Nurse PractitionerEmory University [facility]02/21/24Team MemberRelationshipSpecialtyStart DateEnd Date Molina De Anda MD [address] [place] [address] PCP - GeneralEmory University [facility] & [facility]02/21/24 Angel Luis Groves NP [address] [place] [address] Nurse PractitionerEmory University [facility]02/21/24Team MemberRelationshipSpecialtyStart DateEnd Date Molina De Anda MD [address] [place] [address] PCP - [facility]02/21/24 Angel Luis Groves NP [address] [place] [address] Nurse PractitionerEmory University [facility]02/21/24Team MemberRelationshipSpecialtyStart DateEnd Date Molina De Anda MD [address] [place] [address] PCP - GeneralEmory University [facility]02/21/24 Angel Luis Groves NP [address] [place] [address] Nurse PractitionerEmory University [facility]02/21/24Team MemberRelationshipSpecialtyStart DateEnd Date Molina De Anda MD [address] [place] [address] PCP - Generalmily Medicine02/21/24 Angel Luis Groves NP [address] [place] [address] Nurse PractitionerAddison [facility] Medicine02/21/24Team MemberRelationshipSpecialtyStart DateEnd Date Molina De Anda MD [address] [place] [address] PCP - GeneralEmory [facility]02/21/24 Angel Luis Groves, MARY JO [address] [place] [address] Nurse PractitionerEmory University [facility]02/21/24Team MemberRelationshipSpecialtyStart DateEnd Date Molina De Anda MD [address] [place] [address] PCP - Generalmi Medicine02/21/24 Angel Luis Groves, MARY JO [address] [place] [address] Nurse PractitionerAddison [facility] Medicine02/21/24Team MemberRelationshipSpecialtyStart DateEnd Date Molina De Anda MD [address] [place] [address] PCP - Generalmi Medicine02/21/24 Angel Luis Groves NP [address] [place] [address] Nurse PractitionerEmory University [facility]02/21/24Team MemberRelationshipSpecialtyStart DateEnd Date Molina De Anda MD [address] [place] [address] PCP - GeneralEmory University [facility]02/21/24 Angel Luis Groves NP [address] [place] [address] Nurse PractitionerEmory University [facility]02/21/24Team MemberRelationshipSpecialtyStart DateEnd Date Molina De Anda MD [address] [place] [address] PCP - [facility]02/21/24 Angel Luis Groves NP [address] [place] [address] Nurse PractitionerEmory University [facility]02/21/24Team MemberRelationshipSpecialtyStart DateEnd Date Molina De Anda MD [address] [place] [address] PCP - GeneralEmory University [facility]02/21/24 Angel Luis Groves NP [address] [place] [address] Nurse PractitionerEmory University [facility]02/21/24Team MemberRelationshipSpecialtyStart DateEnd Date Molina De Anda MD [address] [place] [address] PCP - [facility]02/21/24 Angel Luis Groves NP [address] [place] [address] Nurse PractitionerEmory University [facility]02/21/24Team MemberRelationshipSpecialtyStart DateEnd Date Molina De Anda MD [address] [place] [address] PCP - [facility]02/21/24 Angel Luis Groves NP [address] [place] [address] Nurse [facility]02/21/24Team MemberRelationshipSpecialtyStart DateEnd Date Molina De Anda MD [address] [place] [address] PCP - [facility]02/21/24 Angel Luis Groves NP [address] [place] [address] Nurse [facility]02/21/24Team MemberRelationshipSpecialtyStart DateEnd Date Molina De Anda MD [address] [place] [address] PCP - [facility]02/21/24 Angel Luis Groves NP [address] [place] [address] Nurse Practitionermily Medicine02/21/24Team MemberRelationshipSpecialtyStart DateEnd Date Molina De Anda MD [address] [place] [address] PCP - Generalmi Medicine02/21/24 Angel Luis Groves NP [address] [place] [address] Nurse PractitionerEmory University [facility]02/21/24Team MemberRelationshipSpecialtyStart DateEnd Date Molina De Anda MD [address] [place] [address] PCP - GeneralEmory [facility]02/21/24 Angel Luis Groves NP [address] [place] [address] Nurse PractitionerEmory University [facility]02/21/24Team MemberRelationshipSpecialtyStart DateEnd Date Molina De Anda MD [address] [place] [address] PCP - GeneralAddison [facility] Medicine02/21/24 Angel Luis Groves, MARY JO [address] [place] [address] Nurse PractitionerEm[facility] University [facility]02/21/24Team MemberRelationshipSpecialtyStart DateEnd Date Molina De Anda MD [address] [place] [address] PCP - Generalmi Medicine02/21/24 Angel Luis Groves NP [address] [place] [address] Nurse PractitionerEmory University [facility]02/21/24Team MemberRelationshipSpecialtyStart DateEnd Date Molina De Anda MD [address] [place] [address] PCP - [facility]02/21/24 Angel Luis Groves NP [address] [place] [address] Nurse PractitionerEmory University [facility]02/21/24Team MemberRelationshipSpecialtyStart DateEnd Date Molina De Anda MD [address] [place] [address] PCP - [facility]02/21/24 Angel Luis Groves NP [address] [place] [address] Nurse PractitionerEmory University [facility]02/21/24Team MemberRelationshipSpecialtyStart DateEnd Date Molina De Anda MD [address] [place] [address] PCP - [facility]02/21/24 Angel Luis Groves NP [address] [place] [address] Nurse [facility]02/21/24Team MemberRelationshipSpecialtyStart DateEnd Date Molina De Anda MD [address] [place] [address] PCP - [facility]02/21/24 Angel Luis Groves NP [address] [place] [address] Nurse PractitionerEmory University [facility]02/21/24Team MemberRelationshipSpecialtyStart DateEnd Date Molina De Anda MD [address] [place] [address] PCP - [facility]02/21/24 Angel Luis Groves NP [address] [place] [address] Nurse PractitionerEm[facility] University [facility]02/21/24Team MemberRelationshipSpecialtyStart DateEnd Date Molina De Anda MD [address] [place] [address] PCP - [facility]02/21/24 Angel Luis Groves NP [address] [place] [address] Nurse PractitionerEm[facility] University [facility]02/21/24Team MemberRelationshipSpecialtyStart DateEnd Date Molina De Anda MD [address] [place] [address]10[address] PCP - [facility]02/21/24 Angel Luis Groves NP [address] [place] [address] Nurse PractitionerEm[facility]02/21/24Team MemberRelationshipSpecialtyStart DateEnd Date Molina De Anda MD [address] [place] [address] PCP - GeneralFamily Medicine02/21/24 Angel Luis Groves NP [address] [place] [address] Nurse [facility]Add[facility]02/21/24Team MemberRelationshipSpecialtyStart DateEnd Date Molina De Anda MD [address] [place] [address] PCP - Generalmi Medicine02/21/24 Angel Luis Groves NP [address] [place] [address] Nurse PractitionerEm[facility]02/21/24Team MemberRelationshipSpecialtyStart DateEnd Date Molina De Anda MD [address] [place] [address] PCP - Generalmi Medicine02/21/24 Angel Luis Groves NP [address] [place] [address] Nurse Practition[facility]Add[facility] Medicine02/21/24Team MemberRelationshipSpecialtyStart DateEnd Date Molina De Anda MD [address] [place] [address] PCP - [facility]Add[facility]02/21/24 Angel Luis Groves NP [address] [place] [address] Nurse PractitionerAdd[facility] Medicine02/21/24Team MemberRelationshipSpecialtyStart DateEnd Date Molina De Anda MD [address] [place] [address] PCP - [facility]02/21/24 Angel Luis Groves NP [address] [place] [address] Nurse PractitionerEm[facility]02/21/24Team MemberRelationshipSpecialtyStart DateEnd Date Molina De Anda MD [address] [place] [address] PCP - [facility]02/21/24 Angel Luis Groves NP [address] [place] [address] Nurse PractitionerEm[facility]02/21/24 [facility] [address] [facility] [address] [place] [address] Nurse [facility]01/22/25Te MemberRelationshipSpecialtyStart DateEnd Date Molina De Anda MD [address] [place] [address] PCP [facility]02/21/24 Angel Luis Groves NP [address] [place] [address] Nurse PractitionerEm[facility]02/21/24 Eunice Dias [facility] [address] [facility] [address] [place] [address] Nurse [facility]01/22/25Team MemberRelationshipSpecialtyStart DateEnd Date Molina De Anda MD [address] [place] [address] PCP - GeneralFamily Medicine02/21/24 Angel Luis Groves, MARY JO [address] [place] [address] Nurse Pract[facility]02/21/24 [facility] [address] [place] [address] [place] [address] Nurse [facility]01/22/25Team MemberRelationshipSpecialtyStart DateEnd Date No Pcp, [place] [address] PCP - GeneralFamily Medicine11/21/18Team MemberRelationshipSpecialtyStart DateEnd Date Molina De Anda MD [address] [place] [address] PCP - [facility]Community [facility]ally [facility]02/21/24 Angel Luis Groves, MARY JO [address] [place] [address] Nurse PractitionerEm[facility] University [facility]02/21/24 [facility] [address] [facility] [address] [place] [address] Nurse Pract[facility]01/22/25Team MemberRelationshipSpecialtyStart DateEnd Date Molina De Anda MD [address] [place] [address] PCP - [facility]02/21/24 Angel Luis Groves NP [address] [place] [address] Nurse Pract[facility]erEm[facility]02/21/24 Eunice Dias [facility] [address] [facility] [address] [place] [address] Nurse [facility]01/22/25Te MemberRelationshipSpecialtyStart DateEnd Date Molina De Anda MD [address] [place] [address]10[address] PCP - [facility]02/21/24 Angel Luis Groves NP [address] [place] [address] Nurse Pract[facility]Em[facility]02/21/24 Eunice Dias [facility] [address] [facility] [address] [place] [address] Nurse [facility]01/22/25Te MemberRelationshipSpecialtyStart DateEnd Date Molina De Anda MD [address] [place] [address] PCP - [facility]02/21/24 Angel Luis Groves NP [address] [place] [address] Nurse Pract[facility]Em[facility]02/21/24 Eunice Dias [facility] [address] [facility] [address] [place] [address] Nurse PractitionerBehavioral Health01/22/25Team MemberRelationshipSpecialtyStart DateEnd Date Molina De Anda MD [address] [place] [address]10[address] PCP - GeneralFamily Medicine02/21/24 Angel Luis Groves, MARY JO [address] [place] [address] Nurse Practitionermily Medicine02/21/24 [facility] [address] [place] [address] [place] [address] Nurse Pract[facility]01/22/25Team MemberRelationshipSpecialtyStart DateEnd Date No Pcp, [place] [address] PCP - GeneralFamily Medicine11/21/18Team MemberRelationshipSpecialtyStart DateEnd Date Molina De Anda MD [address] [place] [address] PCP - GeneralFamily Medicine02/21/24 Angel Luis Groves, MARY JO [address] [place] [address] Nurse PractitionerCommunity [facility] Hospitally Medicine02/21/24 [facility] [address] [facility] [address] [place] [address] Nurse Practitionerhavioral [facility]01/22/25Team MemberRelationshipSpecialtyStart DateEnd Date Molina De Anda MD [address] [place] [address]110[address] PCP - GeneralFamily Medicine02/21/24 Angel Luis Groves, MARY JO [address] [place] [address] Nurse PractitionerEm[facility]02/21/24 Eunice Dias [facility] [address] [facility] [address] [place] [address] Nurse Practition[facility]01/22/25Te MemberRelationshipSpecialtyStart DateEnd Date Molina De Anda MD [address] [place] [address] PCP - [facility]02/21/24 Anegl Luis Groves, MARY JO [address] [place] [address] Nurse PractitionerEm[facility]02/21/24 Eunice Dias [facility] [address] [facility] [address] [place] [address] Nurse Pract[facility]01/22/25Te MemberRelationshipSpecialtyStart DateEnd Date Molina De Anda MD [address] [place] [address] PCP - [facility]Em[facility]02/21/24 Angel Luis Groves, MARY JO [address] [place] [address] Nurse PractitionerEm[facility] University [facility]02/21/24 Eunice Dias, [facility] [address] [facility] [address] [place] [address] Nurse PractitionerBehavioral Health01/22/25 Rohan Waters LPC Social WorkerBehavioral [facility]03/06/25 Team Status: Active Member Role Status Dates Pascale Arana Primary Care Provider Active Team Status: Inactive Member Role Status Dates Shun Arshad MD Attending Provider Active Star t: March 25, 2025 End: March 25, 2025Lisa Bang AranaBr[facility] Care ProviderActiveStart: March 25, 2025 End: March 25, 2025Team MemberRelationshipSpecialtyStart DateEnd Date Molina De Anda MD PCP - GeneralFamily Medicine02/21/24 Angel Luis Groves NP Nurse PractitionerCommunity [facility] Hospitally Medicine02/21/24 Eunice Dias [facility] [address] [facility] [address] [place] [address] Nurse PractitionerBehavioral Health01/22/25 Rohan Waters LPC Social WorkerBehavioral [facility]03/06/25Team MemberRelationshipSpecialtyStart Date End Date Molina De Anda MD PCP - GeneralFaohly Medicine02/21/24 Angel Luis Groves NP Nurse PractitionerCommunity Memorial Hospitally Medicine02/21/24 Eunice Dias [facility] [address] [facility] [address] [place] [address] Nurse PractitionerBehavioral Health01/22/25 Rohan Waters LPC Social WorkerBehavioral Health03/06/25Team MemberRelationshipSpecialtyStart Date End Date Molina De Anda MD PCP - GeneralFamily Medicine02/21/24 Angel Luis Groves NP Nurse PractitionerFamily Medicine02/21/24 Eunice Dias, [facility] [address] [facility] [address] [place] [address] Nurse PractitionerBehavioral Health01/22/25 Rohan Waters LPC Social WorkerBehavioral Health03/06/25Team MemberRelationshipSpecialtyStart Date End Date Pascale Arana, LASER SPECIALIST-BUTCHER APPRENTICE [facility] [place] [address] PCP - GeneralNurse Practitioner04/02/25Team MemberRelationshipSpecialtyStart Date End Date Molina De Anda MD PCP - GeneralFamily Medicine02/21/24 Angel Luis Groves, MARY JO Nurse PractitionerFamily Medicine02/21/24 Eunice Dias, [facility] [address] [facility] [address] [place] [address] Nurse PractitionerBehavioral Health01/22/25 Rohan Waters LOAN SERVICING REPRESENTATIVE Social WorkerBehavioral Health03/06/25Team MemberRelationshipSpecialtyStart Date End Date Molina De Anda MD PCP - GeneralFamily Medicine02/21/24 Angel Luis Groves NP Nurse PractitionerFabrockton va medical center Medicine02/21/24 Eunice Dias, [facility] [address] [address] Nurse Pract[facility]West[facility] Health01/22/25 Rohan Waters LPC Social Workerhavioral Health03/06/25 Team Status: Active Member Role Status Dates Pascale Arana HAND BRIM IRONER-C Primary Care Provider Active Team Status: Inactive Member Role Status Dates Shun Arshad MD Attending Provider Active Star t: March 25, 2025 End: March 25, 2025Pascale Arana NP-CPrimary Care ProviderActiveStart: March 25, 2025 End: March 25, 2025 Team Status: Inactive Member Role Status Dates Pascale Arana HAND BRIM IRONER-C Primary Care Provider Active Start: April 23, 2025 End: April 23, 2025Sylvia Middleton ProviderActiveStart: April 23, 2025 End: April 23, 2025 Team Status: Active Member Role Status Dates Pascale Arana HAND BRIM IRONER-C Primary Care Provider Active Start: April 23, 2025 Shun Arshad MDOther ProviderActiveStart: April 23, 2025 Sylvia Castelan ProviderActiveStart: April 23, 2025 Team Status: Inactive Member Role Status Dates Pascale Arana HAND BRIM IRONER-C Primary Care Provider Active Start: April 30, 2025 End: April 30, 2025Pascale Arana NP-CAttending ProviderActiveStart: April 30, 2025 End: April 30, 2025Team MemberRelationshipSpecialtyStart DateEnd Date Pascale Arana, LASER SPECIALIST-BUTCHER APPRENTICE [place] [address] PCP - GeneralNurse Practitioner04/02/25 Team Status: Active [...] BE BASED ON THE PRIMARY CLINICAL RECORDS. [employer] provides no warranty or guarantee of the accuracy or completeness of information in this document.
[2025-05-19 12:25] VITALS: BP 118/55; PULSE 72; O2SAT 92
[2025-05-19 12:27] VITALS: BP 111/59; PULSE 77; O2SAT 94
[2025-05-19] MEDS: BUPIVACAINE HCL 0.25% PF 25 MG/10 ML VIAL 8 ML INJ (12:27)
[2025-05-19] MEDS: LIDOCAINE HCL 2% 400 MG/20 ML MDV INJ (12:27)
--- NOTE | 2025-05-19 12:27 | W.PM.PROCNOT ---
Date of procedure: 05/19/25 Pre-op diagnosis: Pain due to lumbar spondylosis without myelopathy Post-op diagnosis: same as pre-op Procedure: Procedure: Bilateral L4-5, L5-S1 medial branch block Medications: Bupivacaine 0.25% 6cc The patient was seen and examined in the preoperative holding area.? An informed consent was obtained and placed on the chart.? The patient was brought to the medical procedure unit and placed in the prone position.? A timeout was completed verifying correct patient, procedure site, positioning, plan, and special equipment.? Using aseptic technique, the needle was placed at left L4. Under direct fluoroscopic visualization a Quincke-tipped spinal needle was advanced to the junction of the superior articulating process with the transverse process at the designated medial branch segment.? Preceded by negative aspiration, the above-mentioned injectate was placed in 1 mL aliquots.? The procedure was repeated at left L5, S1.? The needle was removed and insertion site was covered. The same procedure, at the same levels, was completed on the right side. The patient was taken to the postprocedural recovery area and monitored for an appropriate length of time before found suitable for discharge in the company of a responsible adult. Anesthesia: Local Surgeon: Bandar Eden Pathology: none sent Condition: stable Disposition: no change
== END 2025-05-19 12:31 | disposition home or self-care (01) ==
PROVIDERS: PCP Nurse Practitioner; Visit Provider Anesthesiology
DX: M47.816 Spondylosis without myelopathy or radiculopathy, lumbar region (principal); M54.50 Low back pain, unspecified
CPT/HCPCS: 64493; 64494; J0665

== ENCOUNTER 2025-05-21 07:51 | Outpatient (OUT) | payer OTHER, SELFPAY ==
--- OUTSIDE RECORDS SUMMARY | 2019-11-19 07:15 | XMS_ITS | Continuity of Care Document ---
Author Organization [facility] Address [address] [facility] [place] [address] Phone Care Team Providers Care Photoengraving Sketch Maker Name Role Phone Bernardo WELLER, Mathew Early Unavailable Procedures Procedure Date POSTOP FOLLOW-UP VISIT POSTOP FOLLOW-UP VISIT Gastric Bypass LAP GASTRIC BYPASS/YOUSUF-EN-Y OFFICE/OUTPATIENT VISIT, EST OFFICE/OUTPATIENT VISIT, NEW Advance Directives Directive Yes / No Effective Date File Name No Information Encounters Encounter Description Practice Location Reason(s) For Visit Diagnoses Date Provider Providers Copied on Encounter [facility], [address] [place] [address], [id number], tel:[phone] [facility] No Information Bernardo Carmona. [address], [id number], [place]. tel:[phone] Referring Provider: Mathew Boudreaux, [address], [address]. tel:[phone] [facility], [address] [place] [address], [id number], tel:[phone] [facility] No Information Laci Londono. [address] [facility] [address], [place], [id number], [place]. tel:[phone] Referring Provider: Spring Aguero, [address] [facility] [address], [place], [address]. tel:[phone] [facility], [address] [place] [address] [address], [place], [place], [id number], [place] tel:[phone] [facility] IP No Information Laci Londono. [address], [place], [place], [id number], [place]. tel:[phone] Referring Provider: Spring Aguero, [address] [facility] [address], [place], [address]. tel:[phone] [facility], [address] [place] [address] [address], [place], [place], [id number], [place] tel:[phone] [facility] IP No Information Bernardo Carmona. [address] [facility] [address], [place], [place], [id number], [place]. tel:[phone] Referring Provider: Mathew Boudreaux, [address] [facility] [address], [place], [address]. tel:[phone] OFFICE/OUTPATI ENT VISIT, [facility], [address] [facility] [address], [place], [place], [id number], [place] tel:[phone] [facility] No Information Bernardo Carmona. [address] [facility] [address], [place], [place], [id number], [place]. tel:[phone] Referring Provider: Mathew Boudreaux, [address] [facility] [address], [place], [address]. tel:[phone] OFFICE/OUTPATI ENT VISIT, [facility], [address] [place] [address] [address], [place], [place], [id number], [place] tel:[phone] [facility] No Information Bernardo Carmona. [address] [facility] [address], [place], [place], [id number], [place]. tel:[phone] Referring Provider: Mathew Boudreaux, [address] [facility] [address], [place], [address]. tel:[phone] Family History Family Member Type Diagnosis Age At Onset No Information Payers Payer name Insurance type Covered democrat ID Bijal elmore(anastasiia Ruiz [id number] Social History Type Description Quantity Date Captured [...]
--- OUTSIDE RECORDS SUMMARY | 2024-09-03 11:30 | XMS_ITS ---
Author Organization The [facility] in [place] Address [address] [place] [address] Care Team Providers Care Psychologist Clinical Name Role Phone None, Unknown or Primary Care Provider Unavailab Mathew Lee Unavailable [phone] REASON FOR VISIT Left foot, surgical discussion about removal of hardware Encounters Encounter Location Date Provider Diagnosis [facility] (PODIATRY) [address] [place] [address] [place] [address] 09/03/2024 Mathew Hoff Left foot pain M79.672 Assessments Encounter Date Diagnosis (ICD Code) Assessment Notes Treatment Notes Treatment Clinical Notes Section Notes 09/03/2024 Left foot pain (ICD-10 - M79.672 ) Plan Of Treatment Pending Test Test Name Order Date XR Foot LT (3 views) * 09/03/2024 Progress Notes * Talia RUTHERFORDDOB:[birth year] (55 yo F)Acc No.[id number]:09/03/2024 UNLOCKED PROGRESS NOTE Follow Up Patient: Talia FREED :?Mathew Hoff DPLashaun, MSDOB:1970???Age: 54 Y???Sex:FemaleDate:09/03/2024Phone:[phone]:270 [address]IDA [id number]:Unknown or None Subjective: * Chief Complaints: * 1 . Left foot, surgical discussion about removal of hardware. * Medical History: Objective: * Vitals: Assessment: * Assessment: 1.?Left foot pain - M79.672??? Plan: * Treatment: ?Imaging: XR Foot LT (3 views) * * * Electronic signature of Mathew Hoff DPM on 05/21/2025 at 07:54 AM EDTSign off status: PendingVisit Status:?N/S N/C (No Show/No Charge) * Provider: Miguel Hoff DPM, MS Date: 0 09/03/2024 Generated for Printing/Faxing/eTransmitting on:?05/21/2025 07:54 AM EDT
--- OUTSIDE RECORDS SUMMARY | 2025-05-21 07:54 | XMS_ITS | Clinical Summary ---
Author Organization [facility] Address [address] [place] [address] Care Team Providers Care [place] Machine Operator Name Role Phone Shaikh NITHIN Main Primary Care Provider [phone] Allergies Active AllergyReactionsCriticalityNoted UtqeSqoccwhdXchaubvucop39/19/2023 Medications MedicationSigDispense QuantityRefillsLast FilledStart DateEnd DateStatus citalopram [...] InformationValueDate RecordedSex Assigned at BirthNot on fileLegal BweRcqeoa14/29/2022 10:25 PM EDT Gender IdentityNot on fileSexual OrientationNot on file Last Filed Vital Signs Vital SignReadingTime TakenCommentsBlood Csmviuur15/6109 3:16 PM EDT Gssny1276 3:16 PM EDTTemperature--Respiratory Rate--Oxygen Esnskdvrhi88% 04/07/2023 3:16 PM EDTInhaled Oxygen Concentration--Ljtjze765 kg (224 lb) 04/07/2023 3:16 PM TITDwapbk634.1 cm (5' 5 )04/07/2023 3:16 PM EDTBody Mass Index37.28004/07/2023 3:16 PM EDT Plan of Treatment Health MaintenanceDue DateLast DoneCommentsCT Umlszcaasenx1971Colonoscopy 1971Colorectal Cancer Ibughajpm1971FIT-DNA1971FIT1971 FOBT1971 8745Rtflmyyhixrkz1971Depression Ktjbjisho63/13/1983Hepatitis B Vaccines (1 of 3 - 19+ 3-dose series)1990Pneumococcal Vaccine: Pediatrics (0 to 5 Years) and At-Risk Patients (6 to 64 Years) (1 of 2 - PCV)1990Pap Smear1992Adult Ixayffb5704/05/1993Cervical Cancer Kvsavloxo95/13/2001 HPV/Grsqmw1104/05/20017814Pasigoqxx24/13/2011Zoster Vaccines (1 of 2)1COVID- 19 Vaccine (1 [...]
--- OUTSIDE RECORDS SUMMARY | 2025-05-21 07:54 | XMS_ITS | Patient Health Record ---
Author Organization [facility] Address [address] [address], [facility] [address] Care Team Providers Care [place] Laborer Name Role Phone SuMathew sal Unavailable [phone] Allergies Allergen (clinical drug ingredient) Drug/Non Drug Allergy documented on EMR Reaction Allergy Type Onset Date Status PenicillinhivesDrug AllergyActive Reason For Referral No Information Medications Medication SIG (Take, Route, Frequency, Duration) Notes Start Date End Date Status Meloxicam 15 MG Tablet 1 tablet Orally Once a da y ActiveCholecalciferol 125 MCG (5000 UT) Capsule1 capsule Orally Once a day; Duration: 90 days5ActivePrevacid 30 MG Capsule Delayed Release1 capsule 1/2 to 1 hour before morning meal Orally Once a dayActiveAmbien 10 MG Tablet1 tablet at bedtime as needed Orally Once a sbqNtazmsWmdptnmh89/22/2025Active Vitamin B125ActiveMeloxicam 15 MG Tablet1 tablet Orally daily; Duration: 30 days5ActiveVraylar 3 MG CapsuleOral; Duration: 30 Days ActiveAllegraActiveDetrol LA7439BrfiwmMzqzakcp84/22/2025Active Social History Section Notes: Patient is a current smoker. No alcohol use. 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 Lives in [place], risk due to limited sun exposure. - Prescribe Vitamin D supplement - Consider future Vitamin D test 03/14/2025Nonunion after arthrodesis (ICD-10 - M96.0) Persistent foot pain due to non-union. Surgery 2.5 years ago, CT scan in August showed non-union.Active lifestyle, pain worsens when barefoot. Unable to afford bone simulator. - Review Xray from 02/[address] obtained in August. - Repeat CT scan to assess bone healing - Consider bone grafting if non-union or revision persists - Monitor hardware stability 03/14/2025Other Right Leg TEREZA 1.28 TBI .93 Left Leg TEREZA 1.30 TBI .83 Plan Of Treatment No Information Insurance Providers Payer Name Payer Address Payer Phone Subscriber Number Group Number Insured Name Patient Relationship to Insured Coverage Start Date Coverage End Date [employer] [address] [address] [place] [address] [id number] Kenyon Mercado - patient is the insured Medical (General) History Medical History History ICD Code GERD
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
--- OUTSIDE RECORDS SUMMARY | 2025-05-21 07:55 | XMS_ITS | Clinical Summary ---
Author Organization [employer] tem Address [id number] [place] [address] Care Team Providers Care School Bus Monitor Name Role Phone DerrickPascale argueta Bang BANKING OFFICER-BATCH OR CONTINUOUS STILL OPERATOR Primary Care Provider Allergies Active AllergyReactionsCriticalityNoted NersJnecchkgXuipunrkxhkFloye68/19/2023 Medications MedicationSigDispense QuantityRefillsLast FilledStart DateEnd DateStatus meloxicam [...] Problems No known active problems Encounters DateTypeDepartmentCare JygkSokmjyaawfi75/10/2025Telephone [facility] [address] [place] [address] Areli Gudino CMA 04/02/2025 3:00 PM EDTOffice Visit [facility] [address] [place] [address] Tania Asif MD Cystocele with second degree uterine prolapse (Primary Dx); History of reconstructive repair of rectocele; Urge urinary wxkygaiqjsgt41/10/6978Srofaz37/04/2025bstract [facility] [address] [facility] [place] [address] Tania Asif MD from Last 3 Months Family History Medical HistoryRelationNameCommentsDiabetesFatherHeart attackFatherHypertension FatherStrokeFatherBreast cancerMaternal AuntDiabetesMaternal GrandfatherBreast cancerMaternal GrandmotherDiabetesMotherThyroid cancerPaternal GrandmotherColon cancerNeg HxOvarian cancerNeg HxUterine cancerNeg HxRelationNameStatusComments Vnamwuakj5KxdcbTjxruiYwkwdhnrWvuxslyn AuntAliveMaternal GrandfatherDeceased Maternal GrandmotherDeceasedMotherDeceasedPaternal GrandfatherDeceasedPaternal SjzjmqygtokSdyfxkzuMwgslfz3RvazhCuzHtihl Social History Tobacco UseTypesPacks/DayYears UsedDateSmoking Tobacco: Every LquZscdrfcsil381 Smokeless Tobacco: Never Tobacco Cessation:Ready to Q uit: Not Asked; Counseling Given: Not Answered Alcohol UseStandard Drinks/WeekCommentsYes0 (1 standard drink = 0.6 oz pure alcohol)ChildcareAnswerDate AhlicqdvVhwpplypdWkpiumd22/12/2019EmploymentAnswer Date TlyygoftOfxwsvtqjbFthgcay11/12/2019Hunger ScreeningAnswerDate Recorded Within the past 12 months we worried whether our food would run out before we got money to buy more.Never True04/02/2025Within the past 12 months the food we bought just didn't last and we didn't have money to get more.Never True 04/02/2025Purpose - LifeAnswerDate RecordedPurpose and direction in lifeUnknown 1CommentsNoSex and Gender InformationValueDate RecordedSex Assigned at BirthNot on fileLegal FzzXccuxh55/06/2015 12:10 PM EDTGender IdentityNot on fileSexual OrientationNot on file Last Filed Vital Signs Vital SignReadingTime TakenCommentsBlood Ktvjcsbe68/6409 2:57 PM EDT Ygnnw678204/02/2025 2:57 PM EDTTemperature--Respiratory Rate--Oxygen Saturation-- Inhaled Oxygen Concentration--Rsxoor95.1 kg (176 lb 9.6 oz)04/02/2025 2:57 PM JGOArtnbq062.4 cm (5' 5.5 )04/02/2025 2:57 PM EDTBody Mass Index28.9404/02/2025 2:57 PM EDT Plan of Treatment DateTypeDepartmentCare Team (Latest Contact Info)Qikzzylbzjo79/05/2025 2:30 PM ESTProcedure visit [facility] [address] [place] [address] Tania Asif MD [address] [place] [address] Health MaintenanceDue DateLast DoneCommentsTobacco Zyrjbceuep1971 Depression Axedxogzh31/13/1983Adult BMI Follow Up Plan1989DTaP,Tdap and Td Vaccines (1 - Tdap)1990Pap Smear1992Zoster (Shingles) Vaccine (1 of 2)2021Influenza Ajkqhww1403/24/2025dult BMI Ggmifgauc97 Tobacco Sjlzcabfm87 Medical Devices Not on file Insurance Care Teams Team MemberRelationshipSpecialtyStart DateEnd Date Pascale Arana, BANKING OFFICER-BATCH OR CONTINUOUS STILL OPERATOR [address] [place] [address] PCP - GeneralNurse Practitioner04/02/25
--- OUTSIDE RECORDS SUMMARY | 2025-05-21 07:55 | XMS_ITS | Clinical Summary ---
Author Organization [facility] Address [address] [place] [address] Care Team Providers Care Online Communications Specialist Name Role Phone Molina De Anda MD Primary Care Provider [phone] Valerie Groves SWEEPING COMPOUND BLENDER Unavailable [phone] Karime Dias PMHNP-BC Unavailable [phone] Rohan Burns [facility] Unavailable Unavailable Allergies Active AllergyReactionsCriticalityNoted HscoDtfwwbcgQcyxdnwzsitHskgm45/12/2023 Medications MedicationSigDispense QuantityRefillsLast FilledStart DateEnd DateStatus meloxicam [...] DateGAD (generalized anxiety disorder)03/06/2025 Spinal stenosis, lumbosacral jkttyo2402/05/2025Spinal stenosis, cervical region 02/05/2025Sleep apnea01/22/2025Severe episode of recurrent major depressive disorder, without psychotic mhatyxhw03/02/2025 Assessment & Plan (02/25/2025 12:45 PM EDT): Was referred to psych, they are currently managing meds Is off on FMLA for this PTSD (post-traumatic stress disorder)01/22/2025 Assessment & Plan (02/25/2025 7:23 AM EDT): Dx as per psych Abnormal Papanicolaou smear of cervix with positive human papilloma virus (HPV) test11/27/2024 Overview (11/27/2024): Pap smear 11/15 Hot flashes due to mdoxlrhrr56/30/2025 Assessment & Plan (11/20/2024 4:37 PM EDT): Discussed insurance concern over dose of celexa, she takes for hot flashes she is willing to trial a decrease in dose to 20mg and will cut her current pill in half BMI 32.0-32.9,adult10/23/2024Overactive bladder due to prolapse of female genital organ10/02/2024Headache, menstrual migraine, with status migrainosus 08/12/2024Malaise and yeigfre1308/12/2024Detrusor muscle wcfcfmetjl26/20/2025lass 1 obesity due to excess calories without [...] options for weight loss. Environmental and seasonal olzouwyeg34/20/2025 Assessment & Plan (08/12/2024 4:42 PM EST): Cont layla, add flonase History of GI bleed03/06/2024LUQ abdominal pain03/06/20244856Kxdzieilqpdl54/07/2024 Assessment & Plan (04/10/2024 6:44 PM EDT): [...] AFTER BM. Referral sent to GI Nicotine mcsttbfsev00/22/2024 Assessment & Plan (02/25/2025 7:23 AM EDT): [...] ready to start this process Antibiotic-induced yeast gegssiecy16/22/2024 Assessment & Plan (08/15/2023 12:15 AM EST): Will order Fluconazola in case she develops abx induced yeast infection History of gastric cllhgy1108/04/2023 Assessment & Plan (11/13/2023 5:18 PM EDT): On B12 injection and required IV iron. Monitor Iron deficiency chnhhw5008/04/2023 Assessment & Plan (02/25/2025 12:45 PM EDT): [...] Iron due to prior gastric bypass surgery. Nwyqmqxhbuct39/12/2023 Assessment & Plan (01/06/2025 6:10 PM EDT): [...] Elevate HOB if possible Current med: lansoprazole Qsjlywvo97/12/2023 Assessment & Plan (02/25/2025 12:44 PM EDT): [...] mg. Follow up in 6 weeks. B12 hwpsbzomfc00/12/2023 Assessment & Plan (10/23/2024 6:11 PM EDT): [...] prior gastric bypass. Plantar fasciitis of right foot06/30/20237344Wntflhfkc83/08/2023Uterine prolapse 06/30/2023 Resolved Problems ProblemNoted DateDiagnosed DateResolved DateUTI (urinary tract infection), tzflklgikscwk21/24/202504/Well woman exam with routine gynecological exam / Assessment & Plan (11/20/2024 4:32 PM EDT): Thin prep: fu as per pap indications Monthly BSE Weight bearing exercise as well Encounter for screening mammogram for malignant neoplasm of tgweca1010/02/2024 01/22/2025MI 34.0-34.9,adult/08/2024Female genital symptoms /Problem related to unspecified psychosocial circumstances /4871Nbgjobz37/20/202503/06/20254122Vkvqth10 Assessment & Plan (01/06/2025 6:09 PM EDT): See bipolar entry Ikyacompntpd02/20/202504/ute non-recurrent maxillary sinusitis Assessment & Plan (08/12/2024 4:41 PM EST): Zithromax , finish atb Fluids, rest Fu if not better, add steroid nasal spray Cutaneous abscess of abdominal wall/ Overview (08/12/2024): [employer] [id number] EXP: 10/22/2026 LOT # [id number] Assessment & Plan (08/12/2024 5:50 PM EST): [...] daily if no contraindications Screening for diabetes Assessment & Plan (01/22/2024 5:28 PM EDT): Screen for T2 DM Encounter for screening mammogram for breast svedjo64 Assessment & Plan (01/22/2024 5:29 PM EDT): Ordered mammogram. Seizure-like kusuvgzx91 Assessment & Plan (01/22/2024 5:28 PM EDT): [...] both ears without spontaneous rupture of tympanic rylhhgoqd06Overactive bvcoxbl8811/13/2023 01/06/2025utaneous abscess of groin Assessment & Plan [...] prednisone and benzonatate. Bipolar disorder with severe yihtsiyyyr86/12/202307/08/2024 Assessment & Plan (01/06/2025 6:09 PM EDT): [...] or concerns related to new medications. Breast gydglssvh85/06/2025 Assessment & Plan (07/04/2023 3:48 PM EST): Ordered mammogram Menorrhagia with regular cycle/ Encounters DateTypeDepartmentCare UrtrWnygxyjxbnw45/17/2025 4:30 PM EDTSocial Work [facility] [address] [place] [address] [address] [place] [address] Rohan Burns LPC JESSIKA (generalized anxiety disorder) ; Severe episode of recurrent major depressive disorder, without psychotic features (HCC); PTSD (post-traumatic stress disorder)04/09/2025amb flowsheet [facility] [address] [place] [address] Rohan Burns LPC 04/09/20259782Ybjkzu43/11/2025 9:00 AM EDTTelemedicine [facility] [place] [address] [place] [address] Karime Dias [facility]- JESSIKA (generalized anxiety disorder) ; Severe episode of recurrent major depressive disorder, without psychotic features (HCC); PTSD (post-traumatic stress disorder) ; Insomnia, unspecified type; Hekmijknwoip52/11/8441Syksml97/06/2025Refill [facility] [address] [facility] [address] [place] [address] Karime Dias [facility]-BC Severe episode of recurrent major depressive disorder, without psychotic features (HCC)03/25/2025 2:30 PM EDTSocial Work [facility] [address] [facility] [address] [place] [address] Rohan Burns LPC JESSIKA (generalized anxiety disorder) ; Severe episode of recurrent major depressive disorder, without psychotic features (HCC); PTSD (post-traumatic stress disorder)03/25/2025amb flowsheet [facility] [address] [facility] [address] [place] [address] Rohan Burns LPC 03/25/20259967Heojwy37/26/4618Fjkdxq09/18/2025Results Follow-Up [facility] [place] [facility] [address] [place] [address] Natacha Lyn MA ALL CBC WITH AUTO DIFF, HMHP IRON03/06/2025 3:00 PM EDTSocial Work [facility] [place] [facility] [address] [facility] [address] [place] [address] Rohan Burns LPC JESSIKA (generalized anxiety disorder) ; Severe episode of recurrent major depressive disorder, without psychotic features (HCC); PTSD (post-traumatic stress disorder)03/06/2025amboo flowsheet [facility] [address] [facility] [address] [place] [address] Rohan Burns LPC 03/06/20252087Vdhclu62/13/2025linisync Result Encounter [facility] External Department Unsolicited Pascale Arana NP 02/26/2025linisync Result Encounter [facility] External Department Unsolicited Provider, Generic External Data 02/26/2025Refill [facility] [address] [place] [address] Pascale Arana NP Gastroesophageal reflux disease, unspecified whether esophagitis present (Primary Dx)02/26/2025Telephone [facility] [address] [place] [address] Pascale Arana NP 02/25/2025 11:30 AM EDTOffice Visit [facility] [address] [place] [address] Pascale Arana, MARY JO Severe episode of recurrent major depressive disorder, without psychotic features (HCC) (Primary Dx); Cigarette nicotine dependence without complication; PTSD (post-traumatic stress disorder) ; Class 1 obesity due to excess calories without serious comorbidity with body mass index (BMI) of 32.0 to 32.9 in adult; Iron deficiency anemia secondary to inadequate dietary iron intake; Primary kylyfyln05/05/2025bstract [facility] [address] [place] [address] Pascale Arana NP 02/24/2025 3:00 PM EDTOffice Visit [facility] [place] [address] [place] [address] [facility] JESSIKA (generalized anxiety disorder) ; Severe episode of recurrent major depressive disorder, without psychotic features (HCC); PTSD (post-traumatic stress disorder) ; Insomnia, unspecified type; Sleep apnea, unspecified type02/24/2025amboo flowsheet [facility] [address] [place] [place] [address] Karime Dias [facility] 02/24/20254432Ppaeku24/01/2025bstract [facility] [place] [facility] [address] [place] [address] Pascale Arana NP 02/20/2025Refill [facility] [place] [facility] [address] [place] [address] Pascale Arana NP Psychophysiological wqjwavnz56/30/2025linisync Result Encounter [facility]OM[facility] External Department Unsolicited Provider, Generic External Data 02/18/2025bstract [facility] [place] [facility] [address] [place] [address] Pascale Arana NP from Last 3 Months Family History Medical HistoryRelationNameCommentsDiabetesFatherCharlesHeart diseaseFather CharlesHypertensionFatherCharlesStrokeFatherCharlesBreast cancerMaternal GrandmotherThyroid cancerMaternal GrandmotherDepressionMotherConnieDiabetes MotherConnieBreast cancerMother's SisterRelationNameStatusCommentsDaughter 1 AliveDaughter 2AliveDaughter 3AliveFatherCharlesAliveMaternal Grandmother DeceasedMotherConnieAliveMother's SisterAliveSonAlive Social History Tobacco UseTypesPacks/DayYears UsedDateSmoking Tobacco: Every KiqMhmvuhbapx921.8 Started: 1986Passive Smoke Exposure: PastSmokeless Tobacco: Never Tobacco Cessation:Ready [...] times a week08/07/2023How often do you attend spiritism or anabaptist services?Never08/07/2023o you belong to any clubs or organizations such as spiritism groups, unions, fraternal or athletic groups, or school groups?No08/07/2023How often do you attend meetings of the clubs or organizations you belong to?Patient axfbyrgs32/15/2024re you , , , , never , or living with a partner?Eiqhmbj3808/07/2023 AUDIT-CAnswerDate RecordedQ1: How often do you have [...] at all 08/07/2023HQ-2AnswerDate RecordedPatient Health Questionnaire-2 Score5 01/22/2025[facility] [place] [facility] - Occupational Stress QuestionnaireAnswerDate RecordedDo you feel stress - tense, restless, nervous, or anxious, or unable to sleep at night because yourmind is troubled all the time - these days?To some lncwiy4808/07/2023Exercise Vital SignAnswerDate Recorded On average, how many [...] steady place to sleep or slept in [facility] (including now)?No08/07/2023Comments UnknownSex and Gender InformationValueDate RecordedSex Assigned at BirthNot on fileLegal WygVsywqp77/15/2023 7:47 PM EDTGender IdentityNot on fileSexual OrientationNot on file Last Filed Vital Signs Vital SignReadingTime TakenCommentsBlood Yydfoflp539/6408 11:31 AM EDT Dztij5318 11:31 AM EPRQzomtwxwtcv88.6 ??C (97.8 ??F)02/25/2025 11:31 AM EDTRespiratory Pdcp834301/06/2025 4:32 PM EDTOxygen Vwvaoxfppb23%02/25/2025 11:31 AM EDTInhaled Oxygen Concentration--Wwajal98.4 kg (172 lb 12.8 oz)02/25/2025 11:31 AM ACSTgqqss897.1 cm (5' 5 )10/02/2024 4:51 PM EDTBody Mass Index28.76 10/02/2024 4:51 PM EDT Plan of Treatment DateTypeDepartmentCare Team (Latest Contact Info)Ztohaomehpu91/10/2025 3:00 PM ESTOffice Visit [facility] [address] [facility] [address] [place] [address] Macarena Chang, MANAGER OF REVENUE-PILOT CONTROL OPERATOR [address] [facility] [address] [place] [address] Goals GoalPatient Goal TypeAssociated ProblemsRecent ProgressPatient-Stated?Author Help patient manage antidepressant medication Care PlanPatient on antidepressant monitoring Shaikh Cornell MD Procedures Procedure NamePriorityDate/TimeAssociated DiagnosisCommentsHMHP IRONRoutine 03/05/2025 5:03 PM EDT ALL CBC WITH AUTO JNXCOasjvhf73/13/2025 5:03 PM EDT SEGMENTAL BLOOD HYBFRXUQ46/06/2025 3:34 PM EDT XR FOOT LT MIN 3V02/19/2025 3:03 PM EDT from Last 3 Months Results * HMHP IRON (03/05/2025 5:03 PM EDT)ComponentValueRef RangeTest MethodAnalysis TimePerformed AtPathologist SignatureTBH IRON78.050.0 - 170.0 ug/dLTBHSpecimen (Source)Anatomical Location / LateralityCollection Method / VolumeCollection TimeReceived Time03/05/2025 5:03 PM EDT03/05/2025 5:06 PM EDT Narrative [facility] - 03/05/2025 5:54 PM EDT Authorizing ProviderResult TypeResult StatusLisa Derrickhholz NPCLINISYNCFinal ResultPerforming OrganizationAddressCity/State/ZIP CodePhone Number MATTIE TB * (ABNORMAL) ALL CBC WITH AUTO DIFF (03/05/2025 5:03 PM EDT)ComponentValueRef RangeTest MethodAnalysis TimePerformed AtPathologist SignatureTBH WBC6.64.0 - 11.0 10 3/uLTBHTBH RBC3.79(L)4.20 - 5.40 10 6/uLTBHTBH HGB11.8(L)12.0 - 16.0 g/dLTBHTBH HCT37.236.0 - 48.0 %TBHTBH MCV98.281.0 - 99.0 fLTBHTBH MCH31.126.7 - 34.0 pgTBHTBH MCHC31.729.9 - 35.2 g/dLTBHTBH RDW15.3(H)11.0 - 15.0 %TBHTBH NLQ771150 - 450 10 3/uLTBHTBH MPV10.09.5 - 13.5 [...] EDT Narrative 02/27/2025 9:07 AM EDT [facility] ?[address] ? [place], [facility] ? Cardiology Report ? Signed ? Patient: TALIA RUTHERFORD ?MR#: [id number] ?? : 1970 ?Acct:[id number] ?? Age/Sex: 54 / F ?ADM Date: 02/26/25 ?? Loc: CARD ? Attending Dr: Michael Escobedo PA ? Ordering Physician: Michael Escobedo ?? Date of Service: 02/26/25 ?? Procedure(s): CA segmental UE or LE PONCE ?? Accession Number(s): [id number] ? cc: Pascale Arana NP; Michael Escobedo ?[facility] ? Test Date: ?2025-02-26 ?? Pat Name: ? TALIA RUTHERFORD ?Department: ? Room: ? - ?? Gender: ? Female ? Assembler For Puller Over Hand: ?? Cari Nichole ?? : ?1970 ? Requested By: Michael Escobedo ?? Order Number: [id number] ?Reading : ?? SCOTT ??Bronson PARKINSON ? [...] 0907 ? DD/ 1534 ? TD/TT: ? Cashiers Bussers Food Runners: Procedure Note Radiology, Radiologist, MD - 02/27/2025 [place] [address] Cardiology Report Signed Patient: TALIA RUTHERFORD DMR#: [id number] : 1970Acct:[id number] Age/Sex: 54 / FADM Date: 02/26/25 Loc: CARD Attending Dr: iMchael LAZAR Ordering Physician: Michael Escobedo Date of Service: 02/26/25 Procedure(s): CA segmental UE or LE PONCE Accession Number(s): [id number] cc: Pascale Arana NP; Michael Escobedo [facility] Test Date: 2025-02-26 Pat Name: TALIA RUTHERFORD Department: Room: - Gender: Female Assembler For Puller Over Hand: Cari Nichole : 1970 Requested By: Michael Escobedo Order Number: [id number] Garth MD: SCOTT PARKINSON M.D. Interpretive Statements [...] By:02/27/25 0907 02/27/25 0907 DD/ 1534 TD/TT: Cashiers B[employer] Food Runners: Authorizing ProviderResult TypeResult StatusGeneric External Data ProviderIMG XR PROCEDURESFinal Result * XR FOOT LT MIN 3V (02/19/2025 3:03 PM EDT)Anatomical RegionLateralityModality OtherSpecimen (Source)Anatomical Location / LateralityCollection Method / VolumeCollection TimeReceived Time02/19/2025 3:03 PM EDT Narrative 02/19/2025 3:06 PM EDT [facility] ?[address] ? [place] [address] ?XRay Report ? Signed ? Patient: TALIA RUTHERFORD ?MR#: [id number] ?? : 1970 ?Acct:[id number] ?? Age/Sex: 54 / F ?ADM Date: 02/19/25 ?? Loc: RAD ? Attending Dr: Michael Escobedo PA ? Ordering Physician: Michael Escobedo ?? Date of Service: 02/19/25 ?? Procedure(s): XR foot LT min 3V ?? Accession Number(s): [id number] ? cc: Pascale Arana NP; Michael Escobedo ? [facility] ? [address] ? [place] [address] ? Patient Name: ?? TALIA RUTHERFORD ? MRN: [facility]:[id number] ? date: 1970 ?Sex: F ?? Assigned Patient Location: RAD ?? Current Patient Location: RAD ?? Accession/Order Number: [id number] ?? Exam Date: 02/19/2025 ??10:39 ?Report Date: [...] ? Impression dictated by: Merlin Massey Jr., D.OConsuelo ??02/19/2025 3:03 PM ? Dictation Location: [facility]23 ? Electronically authenticated by: [id number] ??Y ?? Date: 02/19/2025 ??15:03 ? Dictated By: ?Migliori,Merlin M.D. ? Signed By: ?02/19/25 1506 ? DD/ 1503 ? TD/TT: ? Cashiers Bussers Food Runners: Procedure Note Radiology, Radiologist, MD - 02/19/2025 [place] [address] XRay Report Signed Patient: TALIA RUTHERFORD [facility]#: [id number] : 1970Acct:[id number] Age/Sex: 54 / FADM Date: 02/19/25 Loc: RAD Attending Dr: Michael Escobedo PA Ordering Physician: Michael Escobedo Date of Service: 02/19/25 Procedure(s): XR foot LT min 3V Accession Number(s): [id number] cc: Pascale Arana NP; Michael Escobedo [address] [address] Patient Name: TALIA RUTHERFORD MRN: [facility]:[id number] date: 1970 Sex: F Assigned Patient Location: RAD Current Patient Location: RAD Accession/Order Number: [id number] Exam Date: 02/19/2025 10:39 Report Date: 02/19/2025 [...] Jr., D.O. 02/19/2025 3:03 PM Dictation Location: [place] [address] Electronically authenticated by: [id number] Y Date: 5:03 Dictated By: Merlin Massey M.D. Signed By:02/19/25 1506 DD/ 1503 TD/TT: Cashiers [employer] Runners: Authorizing ProviderResult TypeResult StatusGeneric External Data Provider [facility] IMAGINGFinal Result from Last 3 Months Additional Health Concerns Active ProblemsNoted DateDiagnosed DatePatient on antidepressant monitoring plan 08/03/2023 [place] [facility] [place]: [facility] [id number] [place] [phone] Care Teams Team MemberRelationshipSpecialtyStart DateEnd Date Molina De Anda MD PCP - GeneralFamily Medicine02/21/24 Valerie Groves NP Nurse PractitionerFamily Medicine02/21/24 Karime [facility]as [facility] [address] [phone] Nurse PractitionerBehavioral Health01/22/25 Rohan Burns LPC Social WorkerBehavioral Health03/06/25
--- OUTSIDE RECORDS SUMMARY | 2025-05-21 07:55 | XMS_ITS | Patient Health Record ---
Author Organization [facility] in [place] Address [address] [place] [address] Care Team Providers Care Sql Data Architect Name Role Phone None, Unknown or Primary Care Provider Unavailab Tawana Lee [facility] [phone] Allergies Allergen (clinical drug ingredient) Drug/Non Drug Allergy documented on EMR Reaction Allergy Type Onset Date Status PenicillinrashDrug AllergyActive Results Component Value Reference Range Notes CT FOOT LT WO CON (Not yet r eviewed by provider) Interpretation: Performing Lab: Notes/Report: Source Facility: [place] [address] CT Scan Report Signed Patient: TALIA RUTHERFORD MR#: [id number] : 1970 Acct:[id number] Age/Sex: 54 / F ADM Date: 09/09/24 Loc: CT Attending Dr: Tawana Hoff D.P.M. Ordering Physician: Tawana Hoff D.P.M. Date of Service: 09/09/24 Procedure(s): CT foot LT wo con Accession Number(s): [id number] cc: ANGEL LUIS LAMAR [place] [address] Patient Name: TALIA RUTHERFORD MRN: [id number] date: 1970 Sex: F Assigned Patient Location: CT Current Patient Location: CT Accession/Order Number: [id number] Exam Date: 09/09/2024 15:56 Report Date: 09/09/2024 [...] M.D. Signed By: 09/09/241741 DD/ 38 TD/TT: Gray Mixing Operator: XR foot LT min 3V (Not yet r eviewed by provider) Interpretation: Performing Lab: Notes/Report: Source Facility: [place] [address] XRay Report Signed Patient: TALIA RUTHERFORD MR#: [id number] : 1970 Acct:[id number] Age/Sex: 54 / F ADM Date: 09/04/24 Loc: EC Attending Dr: Tawana Hoff D.P.M. Ordering Physician: Tawana Hoff D.P.M. Date of Service: 09/04/24 Procedure(s): XR foot LT min 3V Accession Number(s): [id number] cc: NASH LAMAR Peter D.P.M. [facility] [place] [address] Patient Name: TALIA RUTHERFORD MRN: [id number] date: 1970 Sex: F Assigned Patient Location: Current Patient Location: Accession/Order Number: [id number] Exam Date: 09/04/2024 15:53 Report Date: 09/05/2024 [...] Signed By: 09/05/24 1019 DD/ 1016 TD/TT: Gray Mixing Operator: Reason For Referral No Information Medications [...] o steoarthritis of the ankle and/or foot (379868886) Primary osteoarthritis, left ankle and foot (M19.072) ActiveconfirmedProblemGastroesophageal reflux disease (783264670)GERD (gastroesophageal reflux disease) (K21.9)ActiveconfirmedProblemPain in left foot (914287062276860)Left foot pain (M79.672)ActiveconfirmedProblemAnxiety depression (983411222)Anxiety with depression (F41.8)ActiveconfirmedProblemUlcer of big toe (disorder) (912511416)Chronic ulcer of great toe of left foot with fat layer exposed (L97.522)Activeconfirmed Vital Signs Heart Rate 85 /min 09/18/2024 Respiratory Rate16 /min09/18/20246691Pzaattlp58 %09/18/2024 Encounters Encounter Location Date Provider Diagnosis [facility] (POD[facility]) [address] [place], [place] [address] [address] 09/04/2024 Tawana Hoff Pain due to internal orthopedic prosthetic devices, implants and grafts, initial encounter T84.84XA ; Primary osteoarthritis, left ankle and foot M19.072 and Left foot pain M79.672 [facility] (PODIAT[facility]) [address] [place] [address] [place] [address] 09/18/2024 Tawana Hoff 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.0 ; Primary osteoarthritis, left ankle and foot M19.072 and Pain due to internal orthopedic prosthetic devices, implants and grafts, initial encounter T84.84XA [facility] (POD[facility]) [address] [place], [place] [address] [address] 09/04/2024 Tawana Hoff Assessments Encounter Date Diagnosis [...] End Date RANDI MARTHA COURTNEY [address] [place] [address] [id number] Talia Rutherford Self - patient is the insured Medical (General) History Medical History History ICD Code GERD (gastroesophageal reflux disease) K 21.9 Anxiety F41.9 Arthritis M19.90 Nicotine dependence F17.200 Bipolar depression F31.9 Overactive bladder N32.81 Peripheral arterial disease I73.9 Surgical History Surgery Date(Month/Year) posterior colporrhaphy repair, enterocel e repair 02/15/2021 gastric bypass 08/2019 tubal ligation cholecystectomy
--- OUTSIDE RECORDS SUMMARY | 2025-05-21 07:57 | XMS_ITS | CCD ---
Author Organization [facility] Care Team Providers Care Hand Screen Printer Name Role Phone PHYSICIAN, DEFAULT Admitting Unavailable [...] Physician Shaikh Main MD Primary Care Provider [phone] Ron Palomares Attending Unavailable Segun HOLLOWAY Attending Unavailable Segun HOLLOWAY Attending Unavailable MD Tyson Collazo Attending Provider Molina De Anda MD Primary Care Provider [phone] [place] GENERAL SUPERVISOR, Angel Luis Unavailable [place] GENERAL SUPERVISOR, Angel Luis Unavailable Arun PMHNP-BCEunice Unavailable [phone] No Pcp, No Pcp Primary Care Provider UnavailRohan Crooks [facility] Unavailable Unavailable Shun Arshad MD Attending Provider Pascale Arana Primary Care Provider Molina De Anda MD Primary Care Provider Germain GENERAL SUPERVISOR, Angel Luis Unavailable SHELIA MUNIZ Attending Unavailable NO PCP, NO PCP Primary Care Unavailable JOVON ASIF Attending Unavailable SHELIA MUNIZ Referring Unavailable PASCALE ARANA Primary Care Unavailable Derrickhdes ENVIRONMENTAL CONSERVATION OFFICER-JASON, Pascale Cuenca Primary Care Provider ANGEL LUIS [...] Unavailabl e DERRICKHHOLZ, PASCALE Attending Unavailable Aichholz GENERAL SUPERVISOR-C, Pascale Cuenca Primary Care Provider Shun Arshad MD Other Provider Loc Aguayo MD Attending Provider Pascale Ochoa Attending Provider [phone] Shun Arshad Attending Unavailable Shun Arshad Admitting Unavailable Pascale Arana Primary Care Unavailable Clinton Del Toro APRN Attending Provider [phone] Meek WELLER, Flores Gutierrez Attending Unavailable Gilbertoitis , Andzhao Gutierrez Attending Unavailable Meek WELLER, Andzhao Gutierrez Attending Unavailable Allergies Allergy ClassificationReported Allergen(s)Allergy TypeDate of OnsetReaction(s) Facility (6 sources)penciclovir; Translations: [penciclovir]Drug Keuhxoe86-62-9617nwppdHolzer [facility] System (10 sources)Penicillins; Translations: [PENICILLINS]Drug allergy (disorder) 70-77-1872QtoepMnjMercy [facility] (20 sources)Penicillin GDrug Cwveuad64-75-4389QxapoofTRLS Healthcare (20 sources)PenicillinsPropensity to adverse hjyktfwtu91-27-9017AezgwDQQR Healthcare (4 sources)PenicillinsPropensity to adverse reactions to qhjz60-93-9397JqoxzAsc[facility] Work Phone: (1 source)PenicillinsDrug allergy (disorder)37-68-3484QqzfdqiomRiverside [facility] Medications Current Medications MedicationDrug Class(es)DatesSig (Normalized)Sig (Original)[id number] 200 actuat albuterol 0.09 mg/actuat metered dose inhaler (20 sources)beta2-Adrenergic AgonistStart: 05-60-1411btpu 1 puff(s) by inhalation every six hours as needed for wheezingStart: 03-25-2025 End: 16-28-0404Tdyhkaxvn Sulfate 90 mcg/actuation HFA aerosol inhaler Discontinued INHALATION March 25, 2025 12:00am April 01, 2025 11:38am Start: 02-06-2025 End: 85-79-9052cdpq 2 puff(s) by inhalation every six hours as neededalbuterol (PROVENTIL HFA;VENTOLIN HFA) 90 mcg/actuation inhaler Inhale 2 puffs every 6 (six) hours as needed. 02/06/2025 03/08/2025 ActiveStart: 01-14-2025 End: 16-13-6642dtvq 2 puff(s) by inhalation every six hours for wheezing albuterol HFA 90 mcg/act inhaler Indications: URTI (acute upper respiratory infection) , Non-recurrent acute suppurative otitis media of both ears without spontaneous rupture of tympanic membranes Inhale 2 puffs every 6 (six) hours if needed for wheezing 8 g 1 02/06/2025 ActiveStart: 02-29-2024 End: 67-89-7284lees 2 puff(s) by inhalation every four hours for wheezing albuterol HFA 90 mcg/act inhaler Indications: URTI (acute upper respiratory infection) , Non-recurrent acute suppurative otitis media of both ears without spontaneous rupture of tympanic membranes Inhale 2 puffs every 4 (four) hours if needed for wheezing 18 g 12/20/2024 01/14/2025 DiscontinuedARIPiprazole 10 mg oral tablet (2 sources)Atypical AntipsychoticStart: 86-85-6257mztj 1 tablet by mouth once dailyaripiprazole 10 mg Tab 10 mg = 1 tab(s), Oral, Daily, Refills(s) 0 Start Date: 05/24/23 Status: OrderedARIPiprazole Activecariprazine 4.5 mg oral capsule (20 sources)Atypical AntipsychoticStart: 04-03-2025 End: 19-26-3445wqnt 1 capsule by mouth once dailyStart: 04-01-2025 End: 24-03-9711sofn 1 capsule by mouth once dailyCariprazine HCl (Vraylar) 1.5 MG capsule Indications: Severe episode of recurrent major depressive disorder, without psychotic features (HCC) Take 1 capsule by mouth Daily for 3 days 3 capsule 04/01/2025 04/03/2025 DiscontinuedStart: 02-24-2025 End: 25-81-4918Vocwbtkwwzw (Vraylar) 3 mg capsule Discontinued MG PO March 25, 2025 12:00am April [id number]: 01-22-2025 End: 62-34-5027vezj 1 capsule by mouth once dailyCariprazine HCl (Vraylar) 1.5 MG capsule Indications: Severe episode of recurrent major depressive disorder, without psychotic features (HCC) Take 1.5 mg by mouth Daily 30 capsule 01/22/2025 02/24/2025 Discontinuedcholecalciferol 0.125 mg oral capsule (4 sources)Vitamin DStart: 61-52-5225Abwbezex 30 mg Cap-DR (2 sources)Start: 31-06-9879wiuy 1 capsule by mouth once dailyCymbalta 30 mg Cap-DR = 1 cap(s), Oral, Daily, Refills(s) 0 Start Date: 05/24/23 Status: Ordered DULoxetine 60 mg delayed release oral capsule (20 sources)Serotonin and Norepinephrine Reuptake InhibitorStart: 03-13-2024 End: 67-61-5973Yccmo: 02-29-2024 End: 57-58-1587Fnwob: 07-03-2023 End: 00-13-5729hyye 1 capsule by mouth in the morningDULoxetine (Cymbalta) [address] capsule Indications: Fibromyalgia Take 1 capsule (60 mg) by mouth inthe morning. 30 capsule 2 07/03/2023 10/01/2023 Activeestradiol 0.1 mg/ml vaginal cream (19 sources)EstrogenStart: 91-49-9278Bgwit: 83-93-6465iuhzebisT (ESTRACE) 0.01 % (0.1 mg/gram) vaginal cream Indications: Cystocele with second degree uterine prolapse , History of reconstructive repair of rectocele , Urge urinary incontinence Apply peasized amount ( 1.5 g) to vaginal introitus nightly for 4 weeks then 1-2 times per week thereafte 42.5 g 2 02/06/2025 ActiveStart: 92-85-6887onzabnfse (Estrace) 0.1 MG/GM vaginal cream Insert 1.5 g into the vagina 2 (two) times a week 02/06/2025 Activeeszopiclone 1 mg oral tablet (3 sources)Start: 04-10-2024 End: 73-54-9457xaxg 1 tablet by mouth at bedtimeeszopiclone (Lunesta) 1 MG tablet Indications: Psychophysiological insomnia Take 1 tablet (1 mg) bymouth at bedtime Take immediately before bedtime 30 tablet 2 04/10/2024 05/27/2024 Discontinued (Ineffective)ferrous sulfate 325 mg oral tablet (2 sources)Start: 54-05-6556iqil 1 tablet by mouth once dailyferrous sulfate 325 mg Tab 325 mg = 1 tab(s), Oral, Daily, Refills(s) 0 Start Date: 05/24/23 Status: Orderedfluconazole 150 mg oral tablet (1 source)Azole AntifungalStart: 08-14-2023 End: 03-83-6909crqp 1 tablet by mouth every weekfluconazole (Diflucan) 150 MG tablet Indications: Antibiotic-induced yeast infection Take 1 tablet (150 mg) by mouth 1 (one) time per week for 14 days 2 tablet 0 08/14/2023 08/28/2023 Active fluticasone propionate 0.05 mg/actuat metered dose nasal spray (20 sources)CorticosteroidStart: 90-09-3800Kzbyk: 12-39-1361oavw 2 spray(s) nasal route in the morningfluticasone propionate (FLONASE) 50 mcg/actuation nasal spray Administer 2 sprays into each nostrilin the morning. 11/18/2024 ActiveStart: 08-12-2024 End: 00-11-3569nviw 2 spray(s) nasal route once dailyfluticasone (Flonase) 50 MCG/ACT nasal spray Indications: Environmental and seasonal allergies Administer 2 sprays into each nostril Daily Shake gently. Before first use, prime pump. After use, cleantip and replace cap. 16 g 5 11/18/2024 Activelactulose 667 mg/ml oral solution (4 sources)Osmotic LaxativeStart: 03-06-2024 End: 04-76-4210tagc 20 g by mouth at bedtimelactulose (Chronulac) 10 GM/15ML solution Indications: Constipation, unspecified constipation type Take 30 mL (20 g) by mouth in the morning and 30 mL (20 g) before bedtime. Do all this for 10 days. 600 mL 03/06/2024 03/16/2024 Activelansoprazole 30 mg delayed release oral capsule (20 sources)Proton Pump InhibitorStart: 12-21-2024 End: 12-62-0583qrtynwvsxiub (Prevacid) [address] capsule Take 15 mg by mouth in the morning. Take before meals. 12/21/2024 01/06/2025 Discontinued (Therapy completed)Start: 05-24-2023 End: 80-04-1265Ugfqvqzliifb Activemeloxicam 15 mg oral tablet (20 sources)Nonsteroidal Anti-inflammatory DrugStart: 79-31-9677Yavlckgyl Active 24 hr mirabegron 50 mg extended release oral tablet (2 sources)beta3-Adrenergic AgonistStart: 25-56-9835zeln 1 tablet by mouth once dailyStart: 23-86-5400mxig 1 tablet by mouth every twenty-four hours [...] tablet (20 sources)Proton Pump InhibitorStart: 11-20-2024 End: 28-22-7984kezb 1 tablet by mouth once dailypantoprazole (ProtoNix) 40 MG EC tablet Indications: Gastroesophageal reflux disease, unspecified whether esophagitis present Take 1 tablet (40 mg) by mouth Daily Do not crush, chew, or split. 90 tablet 11/20/2024 02/26/2025 Discontinued (Ineffective)Start: 02-29-2024 End: 78-46-2593vdvy 1 tablet by mouth once dailypantoprazole (ProtoNix) 40 MG EC tablet Indications: Gastro-esophageal reflux disease without esophagitis Take 1 tablet (40 mg) by mouth Daily 90 tablet 02/29/2024 08/12/2024 Discontinued (Therapy completed)pregabalin (1 source)Pregabalin Activesucralfate 1000 mg oral tablet (20 sources)Aluminum ComplexStart: 09-47-4211kntw 1 tablet by mouth once before mealtimeStart: 02-26-2024 End: 14-37-8743uzzq 1 tablet by mouth every six hours as neededsucralfate (Carafate) 1 g tablet Take 1 g by mouth every 6 (six) hours if needed 02/26/2024 08/12/2024 Discontinued (Therapy completed)sulfamethoxazole 800 mg / trimethoprim 160 mg oral tablet (11 sources)Dihydrofolate Reductase Inhibitor Antibacterial, Sulfonamide AntimicrobialStart: 11-14-2024 End: 66-35-6177ubyl 1 tablet by mouth every twelve hours for urinary tract infection and urinary tract infectionsulfamethoxazole-trimethoprim (Bactrim DS) 800-160 MG per tablet Indications: UTI (urinary tract infection), uncomplicated Take 1 tablet by mouth every 12 (twelve) hours for 7 days 14 tablet 11/14/2024 11/21/2024 ActiveSyringe 22G X 3/4 3 ML misc (1 source)Start: 08-14-2023 End: 72-11-4582Uiljvka 22G X 3/4 3 ML misc Indications: B12 deficiency 1 each every 7 (seven) days 4 each 0 08/14/2023 09/13/2023 Activevitamin b12 1 mg oral tablet (20 sources)Vitamin J50Xyche: 28-97-4423ryab 1 tablet by mouth once dailyStart: 68-47-3232vgdvlm 1000 ug by intramuscular injection every week, then inject 1000 ug by intramuscular injection every monthCyanocobalamin (B-12 Compliance Injection) 1000 MCG/ML kit Indications: B12 deficiency 1000 mcg injection IM injections once weekly for 4 weeks, then 1000 mcg IM injection once a month 6 kit 0 08/04/2023 ActiveStart: 07-04-2023 End: 65-81-5570vxvl 1 tablet by mouth in the morningcyanocobalamin (Vitamin B- 12) 1000 MCG tablet Indications: B12 deficiency Take 1 tablet (1,000 mcg)by mouth in the morning. 30 tablet 2 07/04/2023 10/02/2023 Activezolpidem tartrate 10 mg oral tablet (20 sources)gamma-Aminobutyric Acid-ergic AgonistStart: 02-78-5691Ivayu: 07-29-2024 End: 35-56-1581Euvxlhrh 10 mg tablet Active MG PO March 25, 2025 12:00am Complies with drug therapyStart: 02-29-2024 End: 12-68-5286ilmwqzqj (Ambien) 10 MG tablet Indications: Psychophysiological insomnia Take 1 tablet (10 mg) by mouth as needed at bedtime for sleep 30 tablet 06/25/2024 07/25/2024 Discontinued (Reorder)Start: 07-04-2023 End: 34-80-7814ynkldkph (Ambien) 10 MG tablet Indications: Psychophysiological insomnia Take 1 tablet (10 mg) by mouth as needed at bedtime for sleep 30 tablet 2 07/04/2023 10/02/2023 Active Completed/Discontinued Medications MedicationDrug Class(es)DatesSig (Normalized)Sig (Original)azithromycin 250 mg oral tablet (8 sources)Macrolide AntimicrobialStart: 08-12-2024 End: 95-45-3802dltwrdhvvbly (Zithromax) 250 MG tablet Indications: Acute non- recurrent maxillary sinusitis 2 pillsday #1, 1 pill day #2-#5 6 tablet 08/12/2024 09/04/2024 Discontinuedcitalopram 40 mg oral tablet (20 sources)Serotonin Reuptake InhibitorStart: 02-29-2024 End: 47-15-1296onyl 1 tablet by mouth in the morningcitalopram (CeleXA) 40 MG tablet Indications: Bipolar disorder with severe depression (HCC) Take 1 tablet (40 mg) by mouth in the morning. 90 tablet 1 11/20/2024 01/06/2025 Discontinued (Therapy completed)Start: 08-14-2023 End: 41-42-2695agpq 1 tablet by mouth in the morningcitalopram (CeleXA) 40 MG tablet Indications: Bipolar disorder with severe depression (CMS/HCC) Take 1 tablet (40 mg) by mouth in the morning. 90 tablet 0 08/28/2023 11/26/2023 Active Citalopram Hydrobromide Activecyclobenzaprine hydrochloride 10 mg oral tablet (20 sources)Muscle RelaxantStart: 01-20-2025 End: 85-02-9340Iatnhkbgdyiqrkt 10 mg tablet Discontinued MG PO March 25, 2025 12:00am April 26, 2025 10:25amfexofenadine hydrochloride 180 mg oral tablet (20 sources)Histamine-1 Receptor AntagonistStart: 02-29-2024 End: 57-88-9071Jxntuayboaar 180 mg tablet Discontinued MG PO March 25, 2025 12:00am April 07, 2025 8:37pmStart: 83-65-6069bpsz 1 tablet by mouth once dailyAllegra D OTC 24HR 1 tab(s), Oral, Daily, Refill(s) 0 Start Date: 06/07/23 Status: Orderedtake 1 tablet by mouth in the morningfexofenadine (Layla Allergy) 180 MG tablet Take 180 mg by mouth in the morning. 0 Activegabapentin 300 mg oral capsule (20 sources)Anti-epileptic AgentStart: 11-18-2024 End: 39-38-8638Vkxhsaygsn 300 mg capsule Discontinued MG PO March 25, 2025 12:00am April 26, 2025 10:25amStart: 06-11-2024 End: 13-55-9398roet 1 capsule by mouth in the morning, [...] mg oral tablet (20 sources)Start: 02-26-2024 End: 25-15-0009ljdf 1 tablet by mouth every six hours as neededhyoscyamine (Anaspaz,Levsin) 0.125 MG tablet Take 0.125 mg by mouth every 6 (six) hours if needed 02/26/2024 08/12/2024 Discontinued (Therapy completed)lamoTRIgine 25 mg oral tablet (19 sources)Mood Stabilizer, Anti-epileptic AgentStart: 01-22-2025 End: 57-36-3427rctrCHNmrdb (LaMICtal) 25 MG tablet Indications: Bipolar disorder with severe depression (HCC) Take1 tablet (25 mg) by mouth Daily for 7 days 1 pill at bedtime for 7 weeks then stop medication 01/22/2025 02/24/2025 Discontinued (Therapy completed)Start: 01-06-2025 End: 96-70-7246owhoIODdewd (LaMICtal) 25 MG tablet Indications: Bipolar disorder with severe depression (HCC) 1 pill at bedtime for 2 weeks, then increase to 1 pill twice a day 60 tablet 01/06/2025 Activemagnesium citrate 58.2 mg/ml oral solution (20 sources)Start: 02-26-2024 End: 08-99-3030fzka 296 mL by mouth once dailyCVS Magnesium Citrate oral solution Take 296 mL by mouth Daily 02/26/2024 08/12/2024 Discontinued (Therapy completed)ondansetron 4 mg disintegrating oral tablet (20 sources)Serotonin-3 Receptor AntagonistStart: 02-26-2024 End: 09-15-3711gtpv 1 tablet by mouth every four hours as needed for nausea ondansetron ODT (Zofran-ODT) 4 MG disintegrating tablet Take 4 mg by mouth every 4 (four) hours if needed for nausea 02/26/2024 08/12/2024 Discontinued (Therapy completed)24 hr oxybutynin chloride 10 mg extended release oral tablet (20 sources)Cholinergic Muscarinic Antagonist End: 93-34-9266qkom 1 tablet by mouth every twenty-four hours in the morning oxybutynin XL (Ditropan XL) 10 MG 24 hr tablet Take 10 mg by mouth in the morning. 08/12/2024 Discontinued (Therapy completed)phentermine hydrochloride 37.5 mg oral tablet (20 sources)Sympathomimetic Amine AnorecticStart: 07-31-2024 End: 90-38-1204nfdt 1 tablet by mouth before mealtimephentermine (Adipex-P) 37.5 MG tablet Indications: BMI 32.0-32.9,adult , Class 1 obesity due to excess calories without serious comorbidity in adult, unspecified BMI Take 1 tablet (37.5 mg) by mouth in the morning. Take before meals. 30 tablet 11/20/2024 01/06/2025 Discontinued (Therapy completed)polyethylene glycol 3350 99930 mg powder for oral solution (9 sources)Osmotic LaxativeStart: 02-28-2024 End: 21-79-9575bzbpozrpkqht glycol, PEG, 3350 (MiraLax) 17 GM/SCOOP powder Indications: Constipation, unspecified constipation type Take 17 g by mouth Daily 578 g 2 02/28/2024 06/09/2024 Expiredsod sulf-pot chloride-mag sulf 1.479-0.188- 0.225 gram tablet (3 sources)Start: 02-13-2023 End: 73-90-5330oap sulf-pot chloride-mag sulf 1.479-0.188- 0.225 gram tablet See instructional sheet given by office. Patient was given a [employer] coupon voucher to use, this is not to be ran through patients insurance. 24 tablet 02/13/2023 2025 DiscontinuedStart: 89-87-8849lrg sulf-pot chloride-mag sulf 1.479-0.188- 0.225 gram tablet See instructional sheet given by office. Patient was given a [employer] coupon voucher to use, this is not to be ran through patients insurance. 24 tablet 02/13/2023 Zoiweo64 hr tolterodine tartrate 4 mg extended release oral capsule (20 sources)Cholinergic Muscarinic AntagonistStart: 12-21-2024 End: 94-57-8909niph 1 capsule by mouth every twenty-four hoursTolterodine 4 mg capsule,extended release 24hr Discontinued MG PO March 25, 2025 12:00am May 05, 2025 2:25pmStart: 05-24-2023 End: 83-04-6664rxto 1 capsule by mouth once dailytolterodine LA (Detrol LA) 4 MG 24 hr capsule Take 4 mg by mouth Daily 12/21/2024 ActiveTolterodine Tartrate ER Active Problems Active Problems Problem ClassificationProblemDateDocumented DateEpisodic/ChronicAbdominal pain (20 sources)Left upper quadrant pain; Translations: [Left upper quadrant pain] Onset: 84-00-4733DmrnpvpiKxuwwff disorders (20 sources)Anxiety; Translations: [Generalized anxiety disorder]Onset: 282635-89-0733QybzxevMspnvar dysrhythmias (2 sources)Palpitations; Translations: [Palpitations]Onset: 42-08-4764Upzxvsfm Deficiency and other anemia (20 sources)Iron deficiency anemia; Translations: [Iron deficiency anemia, unspecified]Onset: 34-16-8545CmfrzdyeQjpgubpvta and other anemia (10 sources)Iron deficiency anemia secondary to inadequate dietary iron intake; Translations: [Other iron deficiency anemias]88-85-2791DbmrvluiIdhqvgrbur disorders (20 sources)Gastroesophageal reflux disease; Translations: [Gastro-esophageal reflux disease without esophagitis]Onset: 867268-51-9726EeljgavAlenhflzjk disorders (1 source)Esophageal disordersGenitourinary symptoms and ill-defined conditions (6 sources)Urge incontinence of urine; Translations: [Urge incontinence]Onset: 769987-94-1610JrkyafcCqqocuqtokgbz symptoms and ill-defined conditions (1 source)Incomplete emptying of bladder; Translations: [Retention of urine, unspecified]20-23-3763HbcwvjkoJiqltwxp; including migraine (20 sources)Menstrual status migrainosus; Translations: [Menstrual migraine, not intractable, with status migrainosus]Onset: 868692-83-7535WxiuugjCrowbjn and fatigue (20 sources)Malaise and fatigue; Translations: [Other malaise]Onset: 08-12-2024 34-71-2756ZvdnvupbYaroomsdoa disorders (20 sources)Menopausal flushing; Translations: [Menopausal and female climacteric states]Onset: 143583-02-0846XncmjfsFeoivfuopipag mental health disorders (20 sources)Psychophysiologic insomnia; Translations: [Psychophysiologic insomnia]Onset: 464893-25-0299VhlcovvPtyi disorders (20 sources)Bipolar disorder; Translations: [Bipolar affective disorder, current episode depression]Onset: 07-04-2023 Resolved: 785697-74-4889WmmlykySkllpph (20 sources)Opportunistic mycosis; Translations: [Candidiasis, unspecified] Onset: 664147-45-8600XrvdojybHylgpojygbo deficiencies (20 sources)Cobalamin deficiency; Translations: [Deficiency of other specified B group vitamins]Onset: 047955-63-0331FniqrykdNbwkufnscxsdyw (5 sources)Primary osteoarthritis, left ankle and foot; Translations: [PRIMARY OSTEOARTHRITIS LT ANK FOOT]Onset: 85-50-0520FiydfmyPviwk acquired deformities (1 source)Contracture, left ankle; Translations: [CONTRACTURE LEFT ANKLE]Onset: 94-40-6250SohycutPqbiq aftercare (1 source)Other termite treater (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; Translations: [OTH NEUROLOGY EPILEPSY PHYSICIAN CURRENT DRUG THERAPY]Onset: 74-92-1181YjjaenqoYvrgq connective tissue disease (4 sources)Pain in left foot; Translations: [PAIN IN LEFT FOOT]Onset: 05-31-2022 EpisodicOther connective tissue disease (20 sources)Fibromyalgia; Translations: [Fibromyalgia]Onset: 07-04-2023 43-81-7753DrobbokbWwzio connective tissue disease (20 sources)Plantar fasciitis of right foot; Translations: [Plantar fascial fibromatosis]Onset: 302141-39-3338IvkhkmreJfhya diseases of bladder and urethra (20 sources)Overactive bladder; Translations: [Overactive bladder]Onset: 11-13-2023 Resolved: 761670-73-3083MyxyqhvKkthy diseases of bladder and urethra (20 sources)Detrusor overactivity; Translations: [Overactive bladder]Onset: 809192-97-6532FakbwqwWzjwb diseases of bladder and urethra (20 sources)Overactive bladder due to prolapse of female genital organ; Translations: [Overactive bladder]Onset: 074774-03-7808MtjwknyTxoel gastrointestinal disorders (2 sources)Bariatric surgery status; Translations: [BARIATRIC SURGERY STATUS] Onset: 45-53-2138UmgoyqmzVfgua gastrointestinal disorders (20 sources)History of bypass of stomach; Translations: [Bariatric surgery status]Onset: 339555-94-7019QsdyzlrlLlitq gastrointestinal disorders (1 source)Constipation, unspecified; Translations: [Constipation, unspecified] Onset: 07-01-3091YwxjnuxtWrzyi gastrointestinal disorders (20 sources)Constipation; Translations: [Constipation, unspecified]Onset: 678902-58-7635WydpeqxbZguar gastrointestinal disorders (20 sources)History of gastrointestinal bleed; Translations: [Personal history of other diseases of the digestive system]Onset: 097185-05-4271Posgkegw Other gastrointestinal disorders (2 sources)Abdominal bloating; Translations: [Abdominal distension (gaseous)] 16-00-4981BrmjsqlsVatpn lower respiratory disease (2 sources)Other forms of dyspnea; Translations: [Other forms of dyspnea]Onset: 30-61-1090SsdqnbspGclxq lower respiratory disease (3 sources)Dyspnea; Translations: [Shortness of breath]88-36-8539GxwnjkwwFwvxm nervous system disorders (6 sources)Carpal tunnel syndrome of right wrist; Translations: [Carpal tunnel syndrome, right upper limb]73-76-7893IsbcwmvSgsna nervous system disorders (6 sources)Right-sided piriformis syndrome; Translations: [Lesion of sciatic nerve, right lower limb]86-60-1429QekzdpxDggzj nervous system disorders (1 source)Carpal tunnel syndrome, right upper limb; Translations: [Carpal tunnel syndrome, right upper limb]Onset: 71-02-9992WeqlfhuMgmqe non-traumatic joint disorders (1 source)Osteophyte, left foot; Translations: [OSTEOPHYTE LEFT FOOT]Onset: 59-89-5956WvwctxhqLwdtu nutritional; endocrine; and metabolic disorders (2 sources)Obesity, unspecified; Translations: [Obesity, unspecified]Onset: 71-04-4331AkebktqEknkk nutritional; endocrine; and metabolic disorders (20 sources)Body mass index 30+ - obesity; Translations: [Body mass index (BMI) 34.0-34.9, adult]Onset: 07-31-2024 Resolved: 619866-97-9782NkopjjaQbfsq nutritional; endocrine; and metabolic disorders (2 sources)Dljswyb36-95-1649QkcsvmaYjeqr nutritional; endocrine; and metabolic disorders (20 sources)Obesity caused by energy imbalance; Translations: [Class 1 obesity due to excess calories without serious comorbidity in adult, unspecified BMI] Onset: 635857-46-5240ZtcdfrnBohyb screening for suspected conditions (not mental disorders or infectious disease) (20 sources)Abnormal electrocardiogram [ECG] [EKG]; Translations: [Patient encounter status]Onset: 02-08-2023 Resolved: 62-61-4393TalieednUuehq upper respiratory disease (20 sources)Allergic disposition; Translations: [Other allergic rhinitis]Onset: 526478-45-7341BwaunavPnsux upper respiratory disease (2 sources)Seasonal allergy; Translations: [Other seasonal allergic rhinitis] 23-22-5597SztjovkGjxbxvxfmw and visceral atherosclerosis (3 sources)Peripheral vascular disease, unspecified; Translations: [Peripheral vascular disease]Onset: 630712-63-0341LdpvhmtHzixbaem of female genital organs (20 sources)Disorder of rectum; Translations: [Rectocele]Onset: 06-30-2023 33-58-6866TnqbvxoPbqwcmhh codes; unclassified (20 sources)Sleep apnea; Translations: [Sleep apnea, unspecified]Onset: 396599-80-0972KyoqjubRskfoltd codes; unclassified (1 source)Acquired absence of other specified parts of digestive tract; Translations: [ACQ ABSENCE OTH PART DIGESTV TRACT]Onset: 35-40-6319Cebvaakc Residual codes; unclassified (2 sources)Localized edema; Translations: [Localized edema]Onset: 02-08-2023 EpisodicResidual codes; unclassified (1 source)Other specified postprocedural states; Translations: [Other specified postprocedural states]Onset: 20-65-2135TywgtmikXyjjnjnbtya; intervertebral disc disorders; other back problems (20 sources)Lumbosacral stenosis; Translations: [Spinal stenosis, lumbosacral region]Onset: 733024-78-9658DvaitzjxPefcnhnhl-unjzzrm disorders (20 sources)Nicotine dependence, cigarettes, uncomplicated; Translations: [Nicotine dependence, unspecified, uncomplicated]Onset: 03-22-2022 Resolved: 07-60-9425KaenyofPgnclegdxkko (4 sources)CONTACT W/AND (SUSP) EXPOS COVID-19; Translations: [CONTACT W/AND (SUSP) EXPOS COVID-19]Onset: 59-20-2680Gdeczguvftyd (2 sources)History of bypass of cexiitm73-49-6256Qyerlgwbrnuj (20 sources)Patient on antidepressant monitoring planOnset: Unclassified (1 source)New PatientOnset: 02-06-2025 Past or Other Problems Problem ClassificationProblemDateDocumented DateEpisodic/ChronicAdjustment disorders (20 sources)Stress and adjustment reaction; Translations: [Reaction to severe stress, unspecified]Onset: 03-18-2024 Resolved: 47-79-0429XlrjcsyJosfsawudozzgr/social admission (20 sources)Stress; Translations: [Finding relating to psychosocial functioning] Onset: 08-12-2024 Resolved: 369845-29-4705NmqcgvpmDvurbfjp; convulsions (20 sources)Neurological finding; Translations: [Unspecified convulsions]Onset: 01-22-2024 Resolved: 154585-60-7443TfmltjifExnbgorymauqu and screening for infectious disease (1 source)Contact with and (suspected) exposure to other viral communicable diseasesOnset: 08-30-2021 Resolved: 47-70-2857SkanxlteLprjpacft disorders (20 sources)Menorrhagia; Translations: [Excessive and frequent menstruation with regular cycle]Onset: 06-30-2023 Resolved: 026747-38-6972WywldcvLunp disorders (20 sources)Mood disordersOnset: 08-03-2023 Resolved: Other circulatory disease (1 source)Other specified symptoms and signs involving the circulatory and respiratory systems; Translations:[OTH SPEC SX SIGNS INVLV CIRC RS]Onset: 91-54-1424HqsfwwkgIxviq female genital disorders (20 sources)Female genital organ symptoms; Translations: [Unspecified condition associated with female genital organs and menstrual cycle]Onset: 08-12-2024 Resolved: 764336-68-9089VozsympbZubiy upper respiratory infections (20 sources)Acute upper respiratory infection, unspecified; Translations: [Acute upper respiratory infection]Onset: 08-30-2021 Resolved: 58-60-0390VhdqbrbgRrllby media and related conditions (20 sources)Acute suppurative otitis media without spontaneous rupture of ear drum; Translations: [Acute suppurative otitis media without spontaneous rupture of ear drum, bilateral]Onset: 01-08-2024 Resolved: 590919-64-9963KlqudnraPwiygwim codes; unclassified (20 sources)Insomnia; Translations: [Insomnia, unspecified]Onset: 07-04-2023 66-80-1838YqbbwjcaXmev and subcutaneous tissue infections (20 sources)Abscess of groin; Translations: [Cutaneous abscess of groin]Onset: 08-15-2023 Resolved: 403596-94-4336HmetvtdvHwapyagxkcto (1 source)CONTACT W/AND (SUSP) EXPOS COVID-19; Translations: [CONTACT W/AND (SUSP) EXPOS COVID-19]Onset: 33-92-5302Mmhzemaeuivl (20 sources)Smoker; Translations: [Smoking]Onset: 08-12-2024 Resolved: 765362-36-4053Plhwrhr tract infections (20 sources)Urinary tract infectious disease; Translations: [Urinary tract infection, site not specified]Onset: 11-14-2024 Resolved: 564765-35-4777Umhiexhp Results Test NameValueInterpretationReference RangeFacilityBasophils Auto (Bld) [#/Vol] Ordered By: Pascale Arana on 92-98-1914Bmpedfklf (Bld) [#/Vol]0.1 10 3/uL0.0-0.1 [facility] HospitalBasophils/100 WBC Auto (Bld)Ordered By: Pascale Arana on 94-26-7920Ukgnuyhfl/100 WBC (Bld)1.1 %0.2-2.0[facility] HospitalCholesterol in LDL Calc [Mass/Vol]Ordered By: Pascale Arana on 56-47-4445Gpscflppqjg in LDL [Mass/Vol]52.2 mg/dLRiverside Methodist HospitalComment on above:<100 mg/dl FGGSVSF701-999 mg/dl NEAR OR ABOVE YDLGHJE219- 159 mg/dl BORDERLINE BWQJ900-186 mg/dl HIGH>190 mg/dl VERY HIGHCholesterol in VLDL Calc [Mass/Vol]Ordered By: Pascale Arana on 76-56-0541Esechysgtxp in VLDL [Mass/Vol]12.8 mg/dLRiverside Methodist HospitalEosinophils/100 WBC Auto (Bld)Ordered By: Pascale Arana on 73-97-7614Qsawgzbmmyt/100 WBC (Bld)6.2 % 0.9-7.0[facility] HospitalErythrocyte distribution width Auto (RBC) [Ratio]Ordered By: Pascale Arana on 21-36-6241Ijdimekzcso distribution width (RBC) [Ratio]12.6 %11.0-15.0[facility] HospitalGlobulin Calc (S) [Mass/Vol]Ordered By: Pascale Arana on 26-40-4294Swwlrhqm (S) [Mass/Vol]3.0 g/dLRiverside Methodist HospitalGlomerular filtration rate (GFR) estimation in non- AmericanOrdered By: Pascale Arana on 05-05-2025 GFR/1.73 sq M.predicted among non-blacks MDRD (S/P/Bld) [Vol rate/Area] mL/min/{1.73_m2}>=60 mL/min/1.73m 2FBerger HospitalHematocrit Auto (Bld) [Volume fraction]Ordered By: Pascale Arana on 58-65-0959Dzjlrqttdh (Bld) [Volume fraction]40.7 %36.0-48.0[facility] Hemoglobin [Mass/volume] in BloodOrdered By: Pascale Arana on 05-05-2025 Hemoglobin (Bld) [Mass/Vol]13.6 g/dL12.0-16.0[facility] Iron binding capacity [Mass/volume] in Serum or PlasmaOrdered By: Pascale Arana on 99-17-3475Lkbf binding capacity [Mass/Vol]303.0 ug/dL250.0-450.0[facility] HospitalIron saturation [Mass Fraction] in Serum or PlasmaOrdered By: Pascale Arana on 53-29-3629Xiom saturation [Mass fraction]27.4 %[facility] HospitalLaboratory - Chemistry and Chemistry - challengeOrdered By: Pascale Arana on 36-61-6471Jzfmigl [Mass/Vol]3.6 g/dL3.4-5.0[facility] HospitalALP [Catalytic activity/Vol]95 U/B03-302LtjaujqvsRiverside Methodist HospitalALT [Catalytic activity/Vol]25 U/N91-90PwvyvmehaRiverside Methodist HospitalAST [Catalytic activity/Vol]23 U/P38-47NgitpmqqhRiverside Methodist HospitalBilirubin [Mass/Vol]0.3 mg/dL0.2-1.0[facility] Calcium [Mass/Vol]8.7 mg/dL8.5-10.1FBerger HospitalChloride [Moles/Vol]105 mmol/L64-019AnhjjnhmeRiverside Methodist HospitalCholesterol [Mass/Vol]116 mg/dL<=200[facility] HospitalCholesterol in HDL [Mass/Vol]51 mg/uU04-14EcorymhymRiverside Methodist HospitalComment on above:> or =60 mg/dl - LOW CARDIOVASCULAR RISK<40 mg/dl - HIGH CARDIOVASCULAR RISKCO2 [Moles/Vol]29.9 mmol/L21.0-32.0[facility] HospitalCreatinine [Mass/Vol]0.62 mg/dL0.55-1.02[facility] HospitalFerritin [Mass/Vol]30.0 ng/mL8.0-252.0[facility] HospitalGFR/1.73 sq M.predicted MDRD (S/P/Bld) [Vol rate/Area]mL/min/{1.73_m2}>=60 mL/min/1.73m 2 [facility] HospitalGlucose [Mass/Vol]77 mg/nV14-308YorvsbhuwRiverside Methodist HospitalIron [Mass/Vol]83.0 ug/dL50.0-170.0[facility] HospitalPotassium [Moles/Vol]4.0 mmol/L3.5-5.1FBerger HospitalProtein [Mass/Vol]6.6 g/dL6.4-8.2FCleveland Clinic Medina Hospitalodium [Moles/Vol]144 mmol/Q469-712OufaaghhqRiverside Methodist HospitalTriglyceride [Mass/Vol]64 mg/dL<=150[facility] HospitalUrea nitrogen [Mass/Vol] 16.0 mg/dL7.0-18.0[facility] HospitalUrea nitrogen/Creatinine [Mass ratio]25.8 mg/mgRiverside Methodist HospitalBilirubin Ql (U)Negative NEGATIVERiverside Methodist HospitalGlucose (U) [Mass/Vol]NegativeNEGATIVE [facility] HospitalKetones Ql (U)NegativeNEGATIVERiverside Methodist HospitalpH (U)6.0 [pH]5.0-9.0[facility] Specific gravity (U) [Rel density]<=1.096Zkjtxjov2.005-1.025[facility] HospitalUrobilinogen Qn (U)0.2 {Genie'U}/dL0.2-1.0[facility] HospitalLaboratory - Hematology and Cell countsOrdered By: Pascale Arana on 55-59-7877Szudrqoe granulocytes/100 WBC (Bld)0.1 %0.0-0.5FBerger HospitalLaboratory - Specimen informationOrdered By: Pascale Arana on 86-77-9298Auhivlpdol (U)CLEARCLEARFBerger HospitalColor (U)LT. YELLOWYELLOWRiverside Methodist HospitalLaboratory - UrinalysisOrdered By: Pascale Arana on 34-36-9530Hshifxfyl esterase Test strip Ql (U)NegativeNEGATIVE [facility] HospitalMucus Ql (Urine sed)NONE SEENNONE SEENRiverside Methodist HospitalNitrite Ql (U)NegativeNEGATIVERiverside Methodist HospitalProtein Ql (U)NegativeNEG/TRACERiverside Methodist HospitalLeukocytes [#/volume] corrected for nucleated erythrocytes in Blood by Automated coun Ordered By: Pascale Arana on 18-42-6391OOK corrected for nucl RBC Auto (Bld) [#/Vol]7.0 10 3/uL4.0-11.0[facility] HospitalLymphocytes Auto (Bld) [#/Vol]Ordered By: Pascale Arana on 97-54-8462Otiswhcbyeu (Bld) [#/Vol]2.7 10 3/uL1.2-3.8[facility] HospitalLymphocytes/100 WBC Auto (Bld) Ordered By: Pascale Arana on 11-06-0159Chpkxnepbtm/100 WBC (Bld)39.2 %20.5-60.0 [facility] Auto (RBC) [Entitic mass]Ordered By: Pascale Arana on 18-48-7154LLE (RBC) [Entitic mass]32.2 pg26.7-34.0[facility] HospitalMC Auto (RBC) [Mass/Vol]Ordered By: Pascale Arana on 05-05-2025 MCHC (RBC) [Mass/Vol]33.4 g/dL29.9-35.2FBerger HospitalMCV Auto (RBC) [Entitic vol]Ordered By: Pascale Arana on 31-97-2659YZQ (RBC) [Entitic vol]96.4 fL81.0-99.0[facility] HospitalMonocytes Auto (Bld) [#/Vol]Ordered By: Pascale Arana on 72-05-5407Rierdhemr (Bld) [#/Vol]0.4 10 3/uL 0.3-0.8[facility] HospitalMonocytes/100 WBC Auto (Bld)Ordered By: Pascale Arana on 97-03-4740Lfjnsfjum/100 WBC (Bld)5.2 %1.7-12.0[facility] HospitalNeutrophils Auto (Bld) [#/Vol]Ordered By: Pascale Arana on 25-18-5628Rowcgzrslie (Bld) [#/Vol]3.4 10 3/uL1.4-6.5FBerger HospitalNeutrophils/100 WBC Auto (Bld)Ordered By: Pascale Arana on 25-15-3131Tqvtbynohqe/100 WBC (Bld)48.2 %43.0-75.0[facility] HospitalNo Panel InformationOrdered By: Pascale Arana on 410462-Iwcklgl Vitamin D Total69.7 ng/mLRiverside Methodist HospitalComment on above:<20 ng/mL Vit D jvdcmzgmu44-<30 ng/mL Vit D bunsuhzkxeyf23-040 ng/mL Vit D sufficient>100 ng/mL Potential ToxicityEosinophils # (Auto)0.4 10 3/uL0.0-0.7 [facility] HospitalImmature Granulocyte # (Auto)0.01 10 3/uL 0.00-0.03[facility] HospitalUrine BacteriaTRACE #/HPFAbnormalNONE SEENRiverside Methodist HospitalUrine Occult BloodNegativeNEGATIVERiverside Methodist HospitalUrine Other CastsNONE SEEN #/LPFNONE SEENRiverside Methodist HospitalUrine Other CrystalsNone Seen #/HPFNone White HospitalUrine RBCNONE SEEN #/HPF0-2FBerger HospitalUrine Squamous Epithelial CellsFEW #/LPFAbnormalNONE/RARERiverside Methodist HospitalUrine WBCNONE SEEN #/HPFNONE [facility] - CincinnatiPlatelet mean volume Auto (Bld) [Entitic vol]Ordered By: Pascale Arana on 80-79-6815Nviwzyvk mean volume (Bld) [Entitic vol]9.7 fL9.5-13.5 [facility] HospitalPlatelets Auto (Bld) [#/Vol]Ordered By: Pascale Arana on 10-15-4049Hjsuwtrhz (Bld) [#/Vol]252 10 3/mD256-958EeocqihnvRiverside Methodist HospitalRBC Auto (Bld) [#/Vol]Ordered By: Pascale Arana on 19-65-4799EZZ (Bld) [#/Vol]4.22 10 6/uL4.20-5.40Centervilleerum or plasma albumin/globulin mass ratioOrdered By: Pascale Arana on 75-87-3371Psvckrl/Globulin [Mass ratio]1.2 {ratio}Centervilleerum or plasma anion gap determinationOrdered By: Pascale Arana on 10-16-6379Owowj gap [Moles/Vol]13.1 mmol/LFCleveland Clinic Medina Hospitalerum or plasma total cholesterol/high density lipoprotein (HDL) cholesterol mass rat Ordered By: Pascale Arana on 47-31-8722Jrpkprfhpcq.total/Cholesterol in HDL [Mass ratio]2.3 {ratio}[facility] HospitalComment on above:3.3 - 4.4 LOW RISK4.4 - 7.1 AVERAGE RISK7.1 - 11.0 MODERATE RISK>11.0 HIGH RISKALL CBC WITH AUTO DIFFon 69-71-0441SAVICGEZF ABSOLUTE AUTO0.1[facility] Basophils/100 WBC (Bld)1.2 %0.2 - 2.0 %[facility] HealthcareEosinophils/100 WBC (Bld) 7.9 %High0.9 - 7.0 %[facility] HealthcareErythrocyte distribution width (RBC) [Ratio] 15.3 %High11.0 - 15.0 %[facility] HealthcareHematocrit (Bld) [Volume fraction]37.2 % 36.0 - 48.0 %[facility] HealthcareHemoglobin (Bld) [Mass/Vol]11.8 g/dLLow12.0 - 16.0 g/dLNOCO HealthcareIMMATURE GRANULOCYTES ABS AUTO0.02[facility] HealthcareImmature granulocytes/100 WBC (Bld)0.3 %0.0 - 0.5 %NOM HealthcareInterpretation and review of laboratory resultsAbnormalNOCO HealthcareLYMPHOCYTES ABSOLUTE AUTO2.3 NOM HealthcareLymphocytes/100 WBC (Bld)35.2 %20.5 - 60.0 %[facility] Medical CenterH (RBC) [Entitic mass]31.1 pg26.7 - 34.0 pgNOUniversity of Missouri Children's HospitalMCHC (RBC) [Mass/Vol] 31.7 g/dL29.9 - 35.2 g/dLNOUniversity of Missouri Children's HospitalMCV (RBC) [Entitic vol]98.2 fL81.0 - 99.0 fLNOCO HealthcareMONOCYTES ABSOLUTE AUTO0.4N[facility] HealthcareMonocytes/100 WBC (Bld)5.5 %1.7 - 12.0 %[facility] HealthcareNEUTROPHILS ABSOLUTE AUTO3.3[facility] Neutrophils/100 WBC (Bld)49.9 %43.0 - 75.0 %NOM HealthcarePlatelet mean volume (Bld) [Entitic vol]10 fL9.5 - 13.5 fLNOMS Bellevue HospitalTBH EO #0.5[facility] TBH BEM937YLPE [facility] RBC3.79LowNOMS Bellevue HospitalTB WBC6.6[facility] CLINISYNCNOUniversity of Missouri Children's HospitalSEGMENTAL BLOOD PRESSUREon 81-81-9260Aao[place] [address] Cardiology Report Signed Patient: TALIA RUTHERFORD MR#: [id number] : 1970 Acct:[id number] Age/Sex: 54 / F ADM Date: 02/26/25 Loc: CARD Attending Dr: Kajal LAZAR Ordering Physician: Kajal Escobedo Date of Service: 02/26/25 Procedure(s): CA segmental UE or LE PONCE Accession Number(s): [id number] cc: Pascale Arana NP; Kajal Escobedo [facility] Test Date: 2025-02-26 Pat Name: TALIA RUTHERFORD Department: Room: - Gender: Female Hosting Engineer: Cari Nichole : 1970 Requested By: Kajal Escobedo Order Number: [id number] Reading MD: SCOTT PARKINSON M.D. Interpretive Statements [...] 02/27/25 0907 02/27/25 09 DD/ 1534 TD/TT: Automobile Locator:TBHRadiology, Radiologist, - 02/27/2025 [place] [address] Cardiology Report Signed Patient: TALIA RUTHERFORD MR#: [id number] : 1970 Acct:[id number] Age/Sex: 54 / F ADM Date: 02/26/25 Loc: CARD Attending Dr: Kajal LAZAR Ordering Physician: Kajal Escobedo Date of Service: 02/26/25 Procedure(s): CA segmental UE or LE PONCE Accession Number(s): [id number] cc: Pascale Arana NP; Kajal Escobedo [facility] Test Date: 2025-02-26 Pat Name: TALIA RUTHERFORD Department: Room: - Gender: Female Hosting Engineer: Cari Nichole : 1970 Requested By: Kajal Escobedo Order Number: [id number] Reading MD: SCOTT PARKINSON M.D. Interpretive Statements [...] 02/27/25 0907 02/27/25 0907 DD/ 1534 TD/TT: Automobile Locator: CHERYL MonteroSEENTAL BLOOD PRESSUREOrdered By: Radiologist Radiology on 84-64-6993BCHS [employer] Work Phone: SEGMENTAL BLOOD PRESSUREon 42-75-5370Jpxzniktu Study observation (narrative)CHERYL MonteroXR FOOT LT MIN 3Von 30-43-4387Ojn[address] [address] XRay Report Signed Patient: TALIA RUTHERFORD MR#: [id number] : 1970 Acct:[id number] Age/Sex: 54 / F ADM Date: 02/19/25 Loc: RAD Attending Dr: Kajal [place] Ordering Physician: Kajal Escobedo Date of Service: 02/19/25 Procedure(s): XR foot LT min 3V Accession Number(s): [id number] cc: Pascale Arana NP; Kajal Escobedo [facility] [place] [id number] Patient Name: TALIA RUTHERFORD MRN: [facility]:[id number] date: 1970 Sex: F Assigned Patient Location: RAD Current Patient Location: RAD Accession/Order Number: [id number] Exam Date: 02/19/2025 10:39 Report Date: 02/19/2025 [...] Jr., D.O. 02/19/2025 3:03 PM Dictation Location: [place] [address] Electronically authenticated by: [id number] Y Date: 02/19/2025 15:03 Dictated By: Merlin Massey M.D. Signed By: 02/19/25 1506 DD/ 1503 TD/TT: Automobile Locator:SILVINAHRadiology, Radiologist, MD - 02/19/2025 [place] [address] XRay Report Signed Patient: TALIA RUTHERFORD MR#: [id number] : 1970 Acct:[id number] Age/Sex: 54 / F ADM Date: 02/19/25 Loc: RAD Attending Dr: Kajal LAZAR Ordering Physician: Kajal Escobedo Date of Service: 02/19/25 Procedure(s): XR foot LT min 3V Accession Number(s): [id number] cc: Pascale Arana NP; Kajal Escobedo [address] [address] Patient Name: TALIA RUTHERFORD MRN: [id number] date: 1970 Sex: F Assigned Patient Location: RAD Current Patient Location: RAD Accession/Order Number: [id number] Exam Date: 02/19/2025 10:39 Report Date: 02/19/2025 [...] Jr. DConsueloOConsuelo 02/19/2025 3:03 PM Dictation Location: [place] [address] Electronically authenticated by: [id number] Y Date: 02/19/2025 15:03 Dictated By: Merlin Massey M.D. Signed By: 02/19/25 1506 DD/ 1503 TD/TT: Automobile Locator: CHERYL HealthcareRadiology Study observation (narrative)[facility]OM[facility] HealthcareXR FOOT LT MIN 3VOrdered By: Radiologist Radiology on 73-65-7407[facility] Work Phone: MR Cervical spine WO contraston 48-89-9877Wux[address] [address] Magnetic Resonance Report Signed Patient: TALIA RUTHERFORD MR#: [id number] : 1970 Acct:[id number] Age/Sex: 54 / F ADM Date: 02/04/25 Loc: MRI Attending Dr: Flores Eden M.D. Ordering Physician: Flores Eden M.D. Date of Service: 02/04/25 Procedure(s): MR cervical spine wo con Accession Number(s): [id number] cc: Pascale Arana NP; Flores Eden M.D. [place] [address] Patient Name: TALIA RUTHERFORD MRN: [facility]:[id number] date: 1970 Sex: F Assigned Patient Location: MRI Current Patient Location: Accession/Order Number: [id number] Exam Date: 02/05/2025 12:10 Report Date: 02/05/2025 [...] Uncovertebral spurring greatest right. Moderate right and akdm-dl-wnrcnare left-sided neural foraminal narrowing. Mild canal narrowing. C5-6: Broad-based disc bulge with uncovertebral spurring, greatest left. Moderate right-sided moderate to severe left-sided neural foraminal narrowing. Mild central canal stenosis. C6-C7: Broad-based disc osteophyte complex with uncovertebral spurring. Wknm-uh-ckvrbyeo right moderate severe left neural foraminal narrowing. Reni-or-ywqmsmky canal narrowing. C7-T1: Minimal vertebral hypertrophy. Moderate facet arthropathy. Canal and patent. Mild foraminal narrowing. MR/MR cervical spine wo con IMPRESSION: Overall multilevel degenerative changes with up to iueb-ys-bifixtdv central canal narrowing. Multilevel foraminal encroachment as noted above. Impression dictated by: Mushtaq Antony M.D. 02/05/2025 12:16 PM Dictation Location: [place] [address] Electronically authenticated by: [id number] Y Date: 02/05/2025 12:16 Dictated By: Mushtaq Antony M.D. Signed By: 02/05/25 1218 DD/ 1216 TD/TT: Automobile Locator:TBHRadiology, Radiologist, MD - 02/05/2025 [place] [address] Magnetic Resonance Report Signed Patient: TALIA RUTHERFORD MR#: [id number] : 1970 Acct:[id number] Age/Sex: 54 / F ADM Date: 02/04/25 Loc: MRI Attending Dr: Flores Eden M.D. Ordering Physician: Flores Eden M.D. Date of Service: 02/04/25 Procedure(s): MR cervical spine wo con Accession Number(s): [id number] cc: Pascale Arana NP; Flores Eden M.D. [facility] [place] [id number] Patient Name: TALIA RUTHERFORD MRN: [id number] date: 1970 Sex: F Assigned Patient Location: MRI Current Patient Location: Accession/Order Number: [id number] Exam Date: 02/05/2025 12:10 Report Date: 02/05/2025 [...] Uncovertebral spurring greatest right. Moderate right and nbgu-mc-dnjmsbzq left-sided neural foraminal narrowing. Mild canal narrowing. C5-6: Broad-based disc bulge with uncovertebral spurring, greatest left. Moderate right-sided moderate to severe left-sided neural foraminal narrowing. Mild central canal stenosis. C6-C7: Broad-based disc osteophyte complex with uncovertebral spurring. Kmlu-wr-hnzhhmdp right moderate severe left neural foraminal narrowing. Kdcz-fm-cojhbigm canal narrowing. C7-T1: Minimal vertebral hypertrophy. Moderate facet arthropathy. Canal and patent. Mild foraminal narrowing. MR/MR cervical spine wo con IMPRESSION: Overall multilevel degenerative changes with up to wmlr-uh-fgeqoood central canal narrowing. Multilevel foraminal encroachment as noted above. Impression dictated by: Mushtaq Antony M.D. 02/05/2025 12:16 PM Dictation Location: [place] [address] Electronically authenticated by: [id number] Y Date: 02/05/2025 12:16 Dictated By: Mushtaq Antony M.D. Signed By: 02/05/25 1218 DD/ 1216 TD/TT: Automobile Locator: CHERYL HealthcareRadiology Study observation (narrative)[facility] Cervical spine WO contrastOrdered By: Radiologist Radiology on 80-72-2332SXVD [employer] Work Phone: LUMBAR SPINE WO CONon 12-19-4290Fke[place] [address] Magnetic Resonance Report Signed Patient: TALIA RUTHERFORD MR#: [id number] : 1970 Acct:[id number] Age/Sex: 54 / F ADM Date: 02/04/25 Loc: MRI Attending Dr: Flores Eden M.D. Ordering Physician: Flores Eden M.D. Date of Service: 02/04/25 Procedure(s): MR lumbar spine wo con Accession Number(s): [id number] cc: Pascale Arana NP; Flores Eden M.D. [place] [id number] Patient Name: TALIA RUTHERFORD MRN: [id number] date: 1970 Sex: F Assigned Patient Location: MRI Current Patient Location: Accession/Order Number: [id number] Exam Date: 02/05/2025 12:16 Report Date: 02/05/2025 [...] Circumferential disc bulge with moderate facet arthropathy. Hcpo-xc-uvrkvcwk right-sided and mild left-sided neural foraminal narrowing . 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 Impression dictated by: Mushtaq Antony M.D. 02/05/2025 2:18 PM Dictation Location: [place] [address] Electronically authenticated by: [id number] Y Date: 02/05/2025 14:18 Dictated By: Mushtaq Antony M.D. Signed By: 02/05/25 1421 DD/ 1418 TD/TT: Automobile Locator:JULIENadiologjaye, Radiologist, - 02/05/2025 [place] [address] Magnetic Resonance Report Signed Patient: TALIA RUTHERFORD MR#: [id number] : 1970 Acct:[id number] Age/Sex: 54 / F ADM Date: 02/04/25 Loc: MRI Attending Dr: Flores Eden M.D. Ordering Physician: Flores Eden M.D. Date of Service: 02/04/25 Procedure(s): MR lumbar spine wo con Accession Number(s): [id number] cc: Pascale Arana GENERAL SUPERVISOR; Flores Eden M.D. [facility] [place] [id number] Patient Name: TALIA RUTHERFORD MRN: [id number] date: 1970 Sex: F Assigned Patient Location: MRI Current Patient Location: Accession/Order Number: [id number] Exam Date: 02/05/2025 12:16 Report Date: 02/05/2025 [...] Circumferential disc bulge with moderate facet arthropathy. Pfeq-mf-rssqhtwr right-sided and mild left-sided neural foraminal narrowing . 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 Impression dictated by: Mushtaq Antony M.D. 02/05/2025 2:18 PM Dictation Location: [place] [address] Electronically authenticated by: [id number] Y Date: 02/05/2025 14:18 Dictated By: Mushtaq Antony M.D. Signed By: 02/05/25 1421 DD/ 1418 TD/TT: Automobile Locator: [facility] HealthcareRadiology Study observation (narrative)[facility] LUMBAR SPINE WO CONOrdered By: Radiologist Radiology on 69-54-3510[facility] Work Phone: all CBC WITH AUTO DIFFon 85-15-7540JRYQHRWKY ABSOLUTE AUTO0.1[facility] HealthcareBasophils/100 WBC (Bld)1 %0.2 - 2.0 %[facility] Healthcare Eosinophils/100 WBC (Bld)6.9 %0.9 - 7.0 %[facility] HealthcareErythrocyte distribution width (RBC) [Ratio]15.6 %High11.0 - 15.0 %[facility] HealthcareHematocrit (Bld) [Volume fraction]36.2 %36.0 - 48.0 %[facility] HealthcareHemoglobin (Bld) [Mass/Vol] 11.8 g/dLLow12.0 - 16.0 g/dLUTAH STATE HOSPITAL HealthcareIMMATURE GRANULOCYTES ABS AUTO0.01 [facility] HealthcareImmature granulocytes/100 WBC (Bld)0.2 %0.0 - 0.5 %[facility] HealthcareInterpretation and review of laboratory resultsAbnormalChristian Hospital LYMPHOCYTES ABSOLUTE AUTO1.9[facility] HospitalLymphocytes/100 WBC (Bld)32 %20.5 - 60.0 %[facility] [Entitic mass]28.6 pg26.7 - 34.0 pgMadison Medical CenterHC (RBC) [Mass/Vol]32.6 g/dL29.9 - 35.2 g/dLMadison Medical CenterV (RBC) [Entitic vol]87.9 fL81.0 - 99.0 fLChristian HospitalMONOCYTES ABSOLUTE AUTO0.3[facility] HealthcareMonocytes/100 WBC (Bld)5.4 %1.7 - 12.0 %[facility] HealthcareNEUTROPHILS ABSOLUTE AUTO3.3[facility] HealthcareNeutrophils/100 WBC (Bld)54.5 %43.0 - 75.0 %[facility] HospitalPlatelet mean volume (Bld) [Entitic vol]9.6 fL9.5 - 13.5 [facility] HealthcareTBH EO #0.4NOMS HealthcareTBH MDU007GLWL HealthcareTBH RBC4.12LowNOCO HealthcareTBH WBC6.1NOMS HealthcareCLINISYNCNOMS HealthcareIGP,APTIMA HPV,AGE GDLNon 58-55-1877EMT GDLN ACOG TESTINGNote.[facility] HealthcareComment on above:TESTS RESULT FLAG UNITS REF RANGE LAB Clinician Provided Cytology Information Source.............Cervix;Endocervix No. of containers..01 ThinPrep Vial Age Wilvero ACOG Fiorella... FLAG LEGEND: L-Low Normal,H-High Normal,LL-Alert Low,HH-Alert High <-Panic Low,>-Panic High,A-Abnormal,AA-Critical Abnormal Performed at: 01 =[address] [address] Monika Norton MD, HPV APTIMAPositiveAbnormalNegativeNOMS HealthcareComment on above:This nucleic acid amplification test detects fourteen high- risk HPV types (16,18,31,33,35,39,45,51,52,56,58,59,66,68) without differentiation. HPV GENOTYPE 16NegativeNegativeNOMS HealthcareHPV GENOTYPE 18,45NegativeNegative NOMS HealthcareComment on above:Performed at: =[address] [id number] Nematology Teacher: Monika Norton MD, Phone: [phone] Performed at: [address] [id number] Nematology Teacher: Monika Norton MD, Phone: [phone] IGP, APTIMA HPV, RFX 16/18,45Note.NOMS HealthcareComment on above:TESTS RESULT FLAG UNITS REF RANGE LAB DIAGNOSIS: 02 NEGATIVE FOR INTRAEPITHELIAL LESION OR MALIGNANCY. Specimen adequacy: 02 Satisfactory for evaluation. Endocervical and/or squamous metaplastic cells (endocervical component) are present. Performed by: Suresh Guerrero Seismometer Operator . 02 Note: Note 02 The [...] Low,>-Panic High,A-Abnormal,AA-Critical Abnormal Performed at: [address] [address] Monika Norton MD, Interpretation and review of laboratory resultsAbnormPenn Highlands Healthcare BRUSH-ALONE CERVIX ENDOCERVIX CLINISYEast [facility], KnoxvilleMM TOMOSYNTHESIS SCREENING BIon 52-18-1255[place]xwPhil[place] [address] Mammography Report Signed Patient: TALIA RUTHERFORD MR#: [id number] : 1970 Acct:[id number] Age/Sex: 54 / F ADM Date: 10/23/24 Loc: MAMMO Attending Dr: Pascale Arana NP Ordering Physician: Pascale Arana NP Results: Date of Service: 10/23/24 Follow Up: Procedure(s): MM tomosynthesis screening BI Accession Number(s): [id number] cc: Pascale Arana NP Patient Name: TALIA RUTHERFORD MR#: [id number] : 1970 Exam Date: 10/23/2024 Ordering Doctor: [...] breast cancer at age 51. LOCATION: [facility] BREAST COMPOSITION: There are scattered [...] Signed By: 10/23/24 1555 DD/ 1555 TD/TT: Automobile Locator:TBHRadiology, Radiologist, MD - 10/23/2024 [place] [address] Mammography Report Signed Patient: TALIA RUTHERFORD MR#: [id number] : 1970 Acct:[id number] Age/Sex: 54 / F ADM Date: 10/23/24 Loc: MAMMO Attending Dr: Pascale Arana NP Ordering Physician: Pascale Arana NP Results: Date of Service: 10/23/24 Follow Up: Procedure(s): MM tomosynthesis screening BI Accession Number(s): [id number] cc: Pascale Arana NP Patient Name: TALIA RUTHERFORD MR#: [id number] : 1970 Exam Date: 10/23/2024 Ordering Doctor: [...] breast cancer at age 51. LOCATION: [facility] BREAST COMPOSITION: There are scattered [...] M.D. Signed By: 10/23/241554 DD/ 54 TD/TT: Automobile Locator: [facility]ITALScottie Bellevue HospitalRadiology Study observation (narrative)Christian HospitalMM TOMOSYNTHESIS SCREENING BIOrdered By: Radiologist Radiology on 61-45-5410XPJUChristian Hospital Work Phone: all CBC WITH AUTO DIFFon 44-58-5209LVRSSDHRI ABSOLUTE ORXK3TOLZChristian HospitalBasophils/100 WBC (Bld)0.8 %0.2 - 2.0 %[facility] Eosinophils/100 WBC (Bld)3.9 %0.9 - 7.0 %Christian HospitalErythrocyte distribution width (RBC) [Ratio]14.2 %11.0 - 15.0 %Christian HospitalHematocrit (Bld) [Volume fraction]32.9 %Low36.0 - 48.0 %Christian HospitalHemoglobin (Bld) [Mass/Vol]10.6 g/dLLow12.0 - 16.0 g/dLChristian HospitalIMMATURE GRANULOCYTES ABS FJQO6RAMGChristian HospitalImmature granulocytes/100 WBC (Bld)0 %0.0 - 0.5 %[facility] Interpretation and review of laboratory resultsAbnormalChristian Hospital LYMPHOCYTES ABSOLUTE AUTO1.6NOUniversity of Missouri Children's HospitalLymphocytes/100 WBC (Bld)31.7 %20.5 - 60.0 %[facility] CenterH (RBC) [Entitic mass]29.5 pg26.7 - 34.0 pgMadison Medical CenterHC (RBC) [Mass/Vol]32.2 g/dL29.9 - 35.2 g/dLNOMS HealthcareMCV (RBC) [Entitic vol]91.6 fL81.0 - 99.0 fLNOMS HealthcareMONOCYTES ABSOLUTE AUTO0.4NOMS HealthcareMonocytes/100 WBC (Bld)7.2 %1.7 - 12.0 %NOMS HealthcareNEUTROPHILS ABSOLUTE AUTO2.8NOMS HealthcareNeutrophils/100 WBC (Bld)56.4 %43.0 - 75.0 %NOMS HealthcarePlatelet mean volume (Bld) [Entitic vol]10.5 fL9.5 - 13.5 fLNOMS HealthcareTBH EO #0.2NOMS HealthcareTBH GZT401FSMC HealthcareTBH RBC3.59LowNOMS HealthcareTBH WBC4.9NOMS HealthcareCLINISYNCNOMS HealthcareCT FOOT LT WO CONon 44-54-1712[place]faPhil[place] [address] CT Scan Report Signed Patient: TALIA RUTHERFORD MR#: [id number] : 1970 Acct:[id number] Age/Sex: 54 / F ADM Date: 09/09/24 Loc: CT Attending Dr: Tawana Foster D.P.M. Ordering Physician: Tawana Foster D.P.M. Date of Service: 09/09/24 Procedure(s): CT foot LT wo con Accession Number(s): [id number] cc: ANGEL LUIS GROVES [place] [id number] Patient Name: TALIA RUTHERFORD MRN: [id number] date: 1970 Sex: F Assigned Patient Location: CT Current Patient Location: CT Accession/Order Number: [id number] Exam Date: 09/09/2024 15:56 Report Date: 09/09/2024 [...] Signed By: 09/09/24 174 DD/ 1739 TD/TT: Automobile Locator:TBHRadiology, Radiologist, - 09/09/2024 [place] [address] CT Scan Report Signed Patient: TALIA RUTHERFORD MR#: [id number] : 1970 Acct:[id number] Age/Sex: 54 / F ADM Date: 09/09/24 Loc: CT Attending Dr: Tawana Foster D.P.M. Ordering Physician: Tawana Foster D.P.M. Date of Service: 09/09/24 Procedure(s): CT foot LT wo con Accession Number(s): [id number] cc: ANGEL LUIS GROVES [place] [id number] Patient Name: TALIA RUTHERFORD MRN: [id number] date: 1970 Sex: F Assigned Patient Location: CT Current Patient Location: CT Accession/Order Number: [id number] Exam Date: 09/09/2024 15:56 Report Date: 09/09/2024 [...] M.D. Signed By: 09/09/241741 DD/ 38 TD/TT: Automobile Locator: CHERYL HealthcareRadiology Study observation (narrative)[facility] HealthcareCT FOOT LT WO CONOrdered By: Radiologist Radiology on 20-72-8747KKYH Healthcare Work Phone: XR FOOT LT MIN 3Von 21-51-0813[place] [address] XRay Report Signed Patient: TALIA RUTHERFORD MR#: [id number] : 1970 Acct:[id number] Age/Sex: 54 / F ADM Date: 09/04/24 Loc: Attending Dr: Tawana Foster D.P.M. Ordering Physician: Tawana Foster D.P.M. Date of Service: 09/04/24 Procedure(s): XR foot LT min 3V Accession Number(s): [id number] cc: ANGEL LUIS GROVES; Tawana Foster D.P.M. [place] [id number] Patient Name: TALIA RUTHERFORD MRN: [id number] date: 1970 Sex: F Assigned Patient Location: Current Patient Location: Accession/Order Number: [id number] Exam Date: 09/04/2024 15:53 Report Date: 09/05/2024 [...] Signed By: 09/05/24 1019 DD/ 1016 TD/TT: Automobile Locator:JULIENadiologjaye, Radiologist, - 09/05/2024 [place] [address] XRay Report Signed Patient: TALIA RUTHERFORD MR#: [id number] : 1970 Acct:[id number] Age/Sex: 54 / F ADM Date: 09/04/24 Loc: Attending Dr: Tawana Foster D.P.M. Ordering Physician: Tawana Foster D.P.M. Date of Service: 09/04/24 Procedure(s): XR foot LT min 3V Accession Number(s): [id number] cc: NASH GROVES Peter D.P.M. [place] [address] Patient Name: TALIA RUTHERFORD MRN: [id number] date: 1970 Sex: F Assigned Patient Location: Current Patient Location: Accession/Order Number: [id number] Exam Date: 09/04/2024 15:53 Report Date: 09/05/2024 [...] Signed By: 09/05/24 1019 DD/ 1016 TD/TT: Automobile Locator: CHERYL HealthcareRadiology Study observation (narrative)[facility] HealthcareXR FOOT LT MIN 3VOrdered By: Radiologist Radiology on 05-46-0503QPDJ Healthcare Work Phone: cHRONIC WOUND/ULCER (HTRX)on 94-03-9299UUJXEGYPSHVVO BAUMANNII (CHRONIC WOUND/ULCER)0NOMS HealthcareACINETOBACTER BAUMANNII (CHRONIC WOUND/ULCER)Not detectedNOMS HealthcareBACTEROIDES FRAGILIS, VULGATUS (CHRONIC WOUND/ULCER)0NOMS HealthcareBACTEROIDES FRAGILIS, VULGATUS (CHRONIC WOUND/ULCER) Not detectedNOMS HealthcareCITROBACTER FREUNDII (CHRONIC WOUND/ULCER)0NOMS HealthcareCITROBACTER FREUNDII (CHRONIC WOUND/ULCER)Not detectedNOMS Healthcare CLOSTRIDIUM PERFRINGENS, NOVYI, SEPTICUM (CHRONIC WOUND/ULCER)0[facility] CLOSTRIDIUM PERFRINGENS, NOVYI, SEPTICUM (CHRONIC WOUND/ULCER)Not detectedNOMS HealthcareCORYNEBACTERIUM JEIKEIUM, STRIATUM, TUBERCULOSTEARICUM (CHRONIC WOUND/VETMB4LVWC HealthcareCORYNEBACTERIUM JEIKEIUM, STRIATUM, TUBERCULOSTEARICUM (CHRONIC WOUND/ULCERNot detectedNOMS HealthcareCUTIBACTERIUM (PROPIONIBACTERIUM) ACNES (CHRONIC WOUND/ULCER)0NOMS HealthcareCUTIBACTERIUM (PROPIONIBACTERIUM) ACNES (CHRONIC WOUND/ULCER)Not detectedNOMS Healthcare ENTEROBACTER CLOACAE COMPLEX, KLEBSIELLA (ENTEROBACTER) AEROGENES ([id number] HealthcareENTEROBACTER CLOACAE COMPLEX, KLEBSIELLA (ENTEROBACTER) AEROGENES (CHRONICNot [...] HealthcareP. ANAEROBIUS, P. ASACCAROLYTICUS, F. MAGNA, A. BKYBCVUR2FYVO HealthcareP. ANAEROBIUS, P. ASACCAROLYTICUS, F. MAGNA, A. [...] HealthcareVARICELLA ZOSTER VIRUS (HUMAN HERPESVIRUS 3) (CHRONIC WOUND/ULCER)0NOCO HealthcareVARICELLA ZOSTER VIRUS (HUMAN HERPESVIRUS 3) (CHRONIC WOUND/ULCER)Not detectedNOUniversity of Missouri Children's HospitalVIBRIO CHOLERAE, PARAHAEMOLYTICUS, VULNIFICUS (CHRONIC WOUND/ULCER)0NOUniversity of Missouri Children's HospitalVIBRIO CHOLERAE, PARAHAEMOLYTICUS, VULNIFICUS (CHRONIC WOUND/ULCER)Not detectedNOLake Regional Health System HealthcareALL CBC WITH AUTO DIFFon 19-61-2596SLAPUJEJB ABSOLUTE JEBM3OEAG HealthcareBasophils/100 WBC (Bld)0.6 %0.2 - 2.0 %[facility] Eosinophils/100 WBC (Bld)0 %Low0.9 - 7.0 %Christian HospitalErythrocyte distribution width (RBC) [Ratio]13.6 %11.0 - 15.0 %Christian HospitalHematocrit (Bld) [Volume fraction]37.4 %36.0 - 48.0 %Christian HospitalHemoglobin (Bld) [Mass/Vol]12.1 g/dL12.0 - 16.0 g/dLChristian HospitalIMMATURE GRANULOCYTES ABS AUTO 0.01NOUniversity of Missouri Children's HospitalImmature granulocytes/100 WBC (Bld)0.2 %0.0 - 0.5 %Christian HospitalInterpretation and review of laboratory resultsAbnormalNOUniversity of [facility] Children's Hospital LYMPHOCYTES ABSOLUTE AUTO1.1LowNOMS Bellevue HospitalLymphocytes/100 WBC (Bld)19.9 %Low 20.5 - 60.0 %[facility] CenterH (RBC) [Entitic mass]29.4 pg26.7 - 34.0 pgMadison Medical CenterHC (RBC) [Mass/Vol]32.4 g/dL29.9 - 35.2 g/dLMadison Medical CenterV (RBC) [Entitic vol]91 fL81.0 - 99.0 fLChristian HospitalMONOCYTES ABSOLUTE AUTO0.2Low NOM HealthcareMonocytes/100 WBC (Bld)4.2 %1.7 - 12.0 %[facility] NEUTROPHILS ABSOLUTE AUTO4.1NOMS HealthcareNeutrophils/100 WBC (Bld)75.1 %High 43.0 - 75.0 %Christian HospitalPlatelet mean volume (Bld) [Entitic vol]9.7 fL9.5 - 13.5 fLChristian HospitalTBH EO #0NOSainte [facility]evieve [facility] RXV029JWGISainte [facility]ev[facility] RBC 4.11LowNOSainte Genevieve [facility] WBC5.4NOUniversity of Missouri Children's HospitalCLINISYNCNLINDSAY MUNICIP[facility] Healthcare Ambulatory Visit Summaryon 86-90-5128Gumefnknar Visit SummaryAmbulatory Visit Summary TALIA RUTHERFORD :1970 [...] you for choosing us for your care. [facility] CampusGastroenterology Office/Clinic Noteon 71-40-9226Pcokernrxkhokcke Office/Clinic NoteGastroenterology Office/Clinic Note Chief Complaint ref [...] virus vaccine, inactivated - Not Given Patient RefusesTrinity Health System West CampusComment on above:Result Comment: Electronically Signed By: Jelani WELLER, Ron Valdovinos.br\Date and Time Signed: 03/18/2415:21 EDTOutside Colonoscopyon 57-30-9462Mkmflmy Colonoscopy [id number]#1.00TIFProvidence HospitalReminderson 18-78-3267Qkiicyvbh From: Machelle Arauz LPN To: N - Clinical; Sent: 07/20/2023 10:55:11 EST Show up: 06/19/2033 07:00:00 EST Subject: colonoscopy recall Due Date/Time: 07/19/2033 07:00:00 EST Reminder/Recall Patient due for screening colonoscopy 07/19/2033.[facility] CampusLab Reportson 96-55-0991Xmc Reports [id number]#1.00TIFFTrinity Health System West CampusInsurance Correspondenceon 67-17-2085Lnvpqjsrx Correspondence [id number]#1.00TIFFTrinity Health System West CampusFacesheeton 75-85-4102Vlfirfskt [id number]#1.00TIFProvidence HospitalPhysician Referralon 05-71-7527Gdgrgsibx Referral [id number]#1.00TIFProvidence HospitalAmbulatory Visit Summaryon 12-87-5805Ljltrtqhng Visit Summary TALIA RUTHERFORD :1970 Visit Date:06/07/2023 [...] you for choosing us for your care. [facility] CampusLab Reportson 83-22-9454Uxg [id number]#1.00TIFProvidence HospitalConsultation Noteon 84-37-4258Bpebelribyhb Note [id number]#1.00TIFProvidence HospitalPhysician Referralon 13-19-8577Dgnvkdjxu Referral [id number]#1.00TIFProvidence HospitalOffice Visiton 21-66-4467Ypgbsx-up [id number] Talia Rutherford 1970 Date Provider Department Center 04/07/202394556-SJDPMHSMYCAROL SHAH Family History Problem Relation Age of Onset Brain Aneurysm Mother 80 Diabetes Mother Heart failure Father 80 Diabetes Father Hypertension Father Diabetes Sister Family Status - Relation Status Age at Mother Father Sister Level of Service:31318 NM OFFICE/OUTPATIENT ESTABLISHED MOD MDM 30-[address] [facility]36on 77-17-512083YMH lab called to report critical HGB and hematocrit for patient: HGB was 5.1 and hematocrit is 18.9. I spoke with Talia and advised she go to the ED. She verbalized understanding and will do so.[facility] NorthOffice Visiton 57-69-9680Joozak-up [id number] Talia Rutherford 1970 Date Provider Department Center 02/08/202392284-XBKNPEHFBCAROL SHAH Family History Problem Relation Age of Onset Brain Aneurysm Mother 80 Diabetes Mother Heart failure Father 80 Diabetes Father Hypertension Father Diabetes Sister Family Status - Relation Status Age at Mother Father Sister Level of Service:34327 NM OFFICE/OUTPATIENT NEW MODERATE MDM 45-59 MINUTES Reason for Visit and Comments: Establish Care [42] - Swelling in both legs,right leg is itching and painful Shortness of Breath [901353] Dizziness [227518] Fatigue [46]NormalUnSelect Medical [facility]Health Rehabilitation Hospital - DublinPREG HCG QUALon 03-10-2022 , QUALNegativeNormalNEGATIVEThe [facility] HospitalComment on above: Performed By: #### PREG ####[facility] [address] [place], [place] [address]PwDr. Moni JohnsonCovid-19 PCR (CVDTB)on 03-03-2022 SARS-CoV-2 (COVID-19) RNA EMMANUEL+probe Ql (Unsp spec)Not detectedNormalNOT DETECTED [facility] HospitalComment on above:Result Comment: This test is not yet approved or cleared by the [place] FDA. When there are no FDA-approved or cleared tests available, and other criteria are met, FDA can make tests available under an emergency access mechanism called an Emergency Use Authorization (EUA). The EUA for this test is supported by the [place] of Health and Human Service's (HHS's) declaration [...] consistent with SARS-CoV-2.Performed By: #### CVDTBH #### [facility] [address] [place], [place] [address] Dr. Moni JohnsonPROF CHEM 8 (BAS METB)on 89-13-9872Nepqp gap [Moles/Vol]9.0 mmol/LNormalThe [facility] HospitalComment on above:Performed By: #### BMP ####[facility] [address] [place], [place] [address]SlDr. Moni JohnsonCalcium [Mass/Vol]8.3 mg/dLCritically low8.5-10.1The [facility] HospitalComment on above:Performed By: #### BMP ####[facility] [address] [place], [place] [address]Dr.Yilan ChangChloride [Moles/Vol]106 mmol/DXcnois25-286Jzz [facility] HospitalComment on above:Performed By: #### BMP ####[facility] V[address] [place], [place] [address]Dr.Yilan ChangCO2 [Moles/Vol]29.2 mmol/NIaijwh41.0-32.0The [facility] HospitalComment on above:Performed By: #### BMP ####[facility] [address] [place], [place] [address]Dr.Yilan ChangCreatinine [Mass/Vol]0.78 mg/dLNormal0.55-1.02The [facility] HospitalComment on above: Performed By: #### BMP ####[facility] [address] [place], [place] [address]Dr.Yilan ChangEGFR-AF LATVIAN>60Normal>=60The [facility] HospitalComment on above:Performed By: #### BMP ####[facility] [address] [place], [place] [address]Dr.Yilan ChangEGFR-NON AF LATVIAN>60Normal>=60The [facility] HospitalCommunson healthcare [facility] on above:Performed By: #### BMP ####[facility] Kn[address] [place], [place] [address]Dr. Yilan ChangGlucose [Mass/Vol]88 mg/vGStnpbo28-335Iun [facility] HospitalComment on above:Performed By: #### BMP ####[facility] Wow[address] [place], [place] [address]Dr.Yilan ChangPotassium [Moles/Vol]4.2 mmol/LNormal 3.5-5.1The [facility] HospitalComment on above:Performed By: #### BMP ####[facility] [address] [place], [place] [address]Dr.Yilan Johnson Sodium [Moles/Vol]140 mmol/VIfobgc718-941Guw [facility] HospitalComment on above: Performed By: #### BMP ####[facility] [address] [place], [place] [address]Ri.Moni ChangUrea nitrogen [Mass/Vol]21.0 mg/dL Critically high7.0-18.0[facility] Health AdministrationCommunson healthcare [facility] on above:Performed By: #### BMP ####[facility] [address] [place], [place] [address]Xc. Yimaria a ChangUrea nitrogen/Creatinine [Mass ratio]26.9 mg/mgNoMagruder HospitalComment on above:Performed By: #### BMP ####[facility] [address] [place], [place] [address]Nq.Yilan ChangCT FOOT LT WO CONon 08-02-0628CF FOOT LT WO CONEXAMINATION: CT FOOT LT [...] authenticated by: ELLIOT JOSE Date: 2022-02-22 18:32[facility] HealthCOVID Quick Testingon 54-25-9009MkbuaxWlyxelttUhxgv Guruji Other Quick Fluon 61-58-0420VMODJ Ab CF (S) [Titer]Negative Nebo.ru Other FLUBV Ab CF (S) [Titer]NegativeERPLY Other 860-6972Vnyjn-12 PCR ([facility])on 70-08-2252JAYV-CoV-2 (COVID- 19) RNA EMMANUEL+probe Ql (Unsp spec)Not detectedNormalNOT DETECTEDThe [facility] HospitalComment on above:Result Comment: This test is not yet approved or cleared by the [place] FDA. When there are no FDA-approved or cleared tests available, and other criteria are met, FDA can make tests available under an emergency access mechanism called an Emergency Use Authorization (EUA). The EUA for this test is supported by the [place] of Health and Human Service's (HHS's) declaration [...] and symptoms consistent with SARS-CoV-2.Performed By: #### [facility] #### [facility] [address] [place] [address] Dr. Moni Johnson Vital Signs Date TimeVital SignValuePerforming EsupstpiwNmvyypvq53-96-4736 14:29-0400Body bfrrav952.1 Corinna Arana GENERAL SUPERVISOR-C Work Phone: [facility]10-13-2025 14:29-0400 Body mass index (BMI) [Ratio]29.2 kg/m2Lisa Derrickhholz GENERAL SUPERVISOR-C Work Phone: [facility]10-13-2025 14:29-0400 Body tvkjro54.83 kgLisa Derrickhholz GENERAL SUPERVISOR-C Work Phone: [facility]10-13-2025 14:29-0400 Diastolic blood uleonsjc53 mm[Hg]Pascale Arana GENERAL SUPERVISOR-C Work Phone: [phone] [place], [place] [address]10-13-2025 14:29-0400 Heart rate83 /minLisa Aichholz GENERAL SUPERVISOR-C Work Phone: [phone] [place], [place] [address]10-13-2025 14:29-0400 Systolic blood xemtmqnl02 mm[Hg]Pascale Aichholz GENERAL SUPERVISOR-C Work Phone: [phone]10-08-2025 16:44-0400 Body dbbfyn818.1 cmLisa Aichholz GENERAL SUPERVISOR-C Work Phone: [phone]10-08-2025 16:44-0400 Body mass index (BMI) [Ratio]29.3 kg/m2Lisa Aichholz GENERAL SUPERVISOR-C Work Phone: [phone]10-08-2025 16:44-0400 Body oyjgjjtzmyd05 [degF]Pascale Aichholz GENERAL SUPERVISOR-C Work Phone: [phone] [address]10-08-2025 16:44-0400 Body .08 kgLisa Aichholz GENERAL SUPERVISOR-C Work Phone: [phone] [address]10-08-2025 16:44-0400 Diastolic blood sbuthznv12 mm[Hg]Pascale Aichholz GENERAL SUPERVISOR-C Work Phone: [phone] [address]10-08-2025 16:44-0400 Heart rate65 /minLisa Aichholz GENERAL SUPERVISOR-C Work Phone: [phone] [address]10-08-2025 16:44-0400 Respiratory rate16 /minLisa Aichholz GENERAL SUPERVISOR-C Work Phone: [phone] [place], [place] [address]10-08-2025 16:44-0400 SaO2% (BldA) [Mass fraction]99 %Pascale Aichholz GENERAL SUPERVISOR-C Work Phone: [phone] [place], [place] 94[address]10-08-2025 16:44-0400 Systolic blood emanuosy87 mm[Hg]Pascale Aichholz GENERAL SUPERVISOR-C Work Phone: [facility]09-10-2025 14:57-0400 Body cuzcxq907.4 cmJovon Asif MD Work Phone: [facility]09-10-2025 14:57-0400Body mass index (BMI) [Ratio]28.94 kg/o8OdtstzJovon Asif MD Work Phone: [facility]09-10-2025 14:57-0400Body kpdryj38.11 kgJovon Asif MD Work Phone: [facility]09-10-2025 14:57-0400Diastolic blood aokqzqkm85 mm[Hg]Jovon Asif MD Work Phone: [facility]09-10-2025 14:57-0400Heart rate 83 /minJovon Asif MD Work Phone: [facility]09-10-2025 14:57-0400Systolic blood hdybonac16 mm[Hg]Jovon Asif MD Work Phone: [facility]09-02-2025 08:37-0400Body ulmypi400.1 Corinna Arana Work Phone: [phone]09-02-2025 08:37-0400 Body mass index (BMI) [Ratio]29.2 kg/m2Pascale Arana Work Phone: [facility]09-02-2025 08:37-0400 Body ysjtgi81.6 kgPascale Arana Work Phone: [facility]08-05-2025 11:31-0400 Body mass index (BMI) [Ratio]28.76 kg/m2Pascale Arana GENERAL SUPERVISOR Work Phone: [facility] HospitalBvkpuggoxk85-03-9061 11:31-0400Body temperature 97.81 [degF]Pascale Aichholz GENERAL SUPERVISOR Work Phone: [facility] HospitalTywibftrlg80-54-6761 11:31-0400Body tcvvic79.38 kgPascale Arana GENERAL SUPERVISOR Work Phone: [facility] HospitalRtywlkuonm73-33-0274 11:31-0400Diastolic blood qgjfbame49 mm[Hg]Pascale Arana GENERAL SUPERVISOR Work Phone: [facility] HospitalMqevdmvpsg11-19-9384 11:31-0400Heart rate99 /min Pascale Arana GENERAL SUPERVISOR Work Phone: [facility] HospitalYhttnivhav63-04-7414 11:31-3337KyT1% (BldA) [Mass fraction]97 %Pascale Arana GENERAL SUPERVISOR Work Phone: [facility] HospitalQmelvwvvao32-08-3058 11:31-0400Systolic blood vhwadhjd911 mm[Hg]Pascale Arana GENERAL SUPERVISOR Work Phone: [facility] HospitalRuddqfsppl11-23-3506 15:01-0400Body mass index (BMI) [Ratio]28.79 kg/u2WqtchgfiEunice Dias PMHNP-BC Work Phone: [facility] HospitalXsatlaihbt48-90-6712 15:01-0400Body graffc15.47 kgEunice Dias PMHNP-BC Work Phone: [facility] HospitalJmvbjwskox42-37-8219 15:01-0400Diastolic blood owvhadju44 mm[Hg]Eunice Dias PMHNP-BC Work Phone: [facility] HospitalVduvibaglk64-65-6338 15:01-0400Heart rate88 /min Eunice Dias PMHNP-BC Work Phone: [facility] HospitalCpkfznnswm94-34-7931 15:01-0400Systolic blood htafgfzl065 mm[Hg]Eunice Dias PMHNP-BC Work Phone: [facility] HospitalCkgbrntvmc88-13-9233 14:23-0400Body pqekxk604.4 Ning Muniz DO Work Phone: [facility]07-17-2025 14:23-0400Body mass index (BMI) [Ratio]28.51 kg/e1LnfdtShelia Muniz DO Work Phone: [facility]07-17-2025 14:23-0400Body rbaftl53.93 kgShelia Muniz DO Work Phone: [facility]07-17-2025 14:23-0400Diastolic blood gwojfueu90 mm[Hg]Shelia Muniz DO Work Phone: [facility]07-17-2025 14:23-0400Systolic blood yyztnybj942 mm[Hg]Shelia Muniz DO Work Phone: [facility]07-02-2025 09:04-0400Body mass index (BMI) [Ratio]29.62 kg/p1UwekjwpsEunice Dias PMHNP-BC Work Phone: [facility] [id number] 09:04-0400Body anipxg05.74 kgEunice Dias PMHNP-BC Work Phone: [facility] [id number] 09:04-0400Diastolic blood zepbgeyr29 mm[Hg]Eunice Dias PMHNP-BC Work Phone: [facility] [id number] 09:04-0400Heart rate78 /min Eunice Dias PMHNP-BC Work Phone: [facility] HospitalAzogjvxbzs79-53-8585 09:04-0400Systolic blood ohndvxsl943 mm[Hg]Eunice Dias PMHNP-BC Work Phone: [facility] HospitalLxqnkzzxaw97-12-2841 16:32-0400Body mass index (BMI) [Ratio]29.99 kg/m2Pascale Arana GENERAL SUPERVISOR Work Phone: [facility] HospitalBypqywebma07-17-4481 16:32-0400Body temperature 98.01 [degF]Pascale Arana GENERAL SUPERVISOR Work Phone: [facility] HospitalKrvvxbpcuc52-91-1400 16:32-0400Body ymfygw57.74 kgLisa Aichholz GENERAL SUPERVISOR Work Phone: [facility]University [facility] HospitalMvyyfkkhby50-99-4165 16:32-0400Diastolic blood wuutvakl11 mm[Hg]Pascale Shalaholz GENERAL SUPERVISOR Work Phone: [facility] HospitalDcyqkhkahk53-93-0349 16:32-0400Heart rate82 /min Pascale Derrickhholz GENERAL SUPERVISOR Work Phone: [facility] HospitalAtangspfyu72-86-3478 16:32-0400Respiratory rate18 /minLisa Aichholz GENERAL SUPERVISOR Work Phone: [facility] HospitalDqtpurwgwz10-41-7834 16:32-3470EqE2% (BldA) [Mass fraction]98 %Pascale Shalaholz GENERAL SUPERVISOR Work Phone: [facility] HospitalRdxejgvfmf58-19-1284 16:32-0400Systolic blood vrdwunhs095 mm[Hg]Pascale Shalaholz GENERAL SUPERVISOR Work Phone: [facility] HospitalEjajudblwe94-09-1607 15:30-0400Body mass index (BMI) [Ratio]32.48 kg/m2Lisa Shalaholz GENERAL SUPERVISOR Work Phone: [facility] HospitalNzmssdyljt16-72-1548 15:30-0400Body temperature 98.2 [degF]Pascale Shalaholz GENERAL SUPERVISOR Work Phone: [facility] HospitalXsojcelvaa13-11-0994 15:30-0400Body lqiaab00.54 kgLisa Shalaholz GENERAL SUPERVISOR Work Phone: [facility] HospitalJajyhowwzq67-03-8743 15:30-0400Diastolic blood kcaagslq97 mm[Hg]Pascale Derrickhholz GENERAL SUPERVISOR Work Phone: [facility] HospitalDepljtlsln30-37-9872 15:30-0400Heart rate80 /min Pascale Aichholz GENERAL SUPERVISOR Work Phone: [facility] HospitalAnzolzopij05-31-8546 15:30-0400Respiratory rate18 /minLisa Aichholz GENERAL SUPERVISOR Work Phone: [facility] HospitalUmyvfvipwq84-09-8658 15:30-5283FuI6% (BldA) [Mass fraction]95 %Pascale Sumit GENERAL SUPERVISOR Work Phone: [facility] HospitalLywufiutpc60-46-5569 15:30-0400Systolic blood mm[Hg]Pascale Javierz GENERAL SUPERVISOR Work Phone: [facility] HospitalMoqcxjdxth07-98-6056 17:34-0400Body mass index (BMI) [Ratio]32.58 kg/m2Lisa Javierz GENERAL SUPERVISOR Work Phone: [facility] HospitalUnmdxykhgh12-64-7974 17:34-0400Body temperature 98.8 [degF]Pascale Javierz GENERAL SUPERVISOR Work Phone: [facility] HospitalNalwqkiytv44-98-1966 17:34-0400Body miowzy55.81 kgLisa Lastholz GENERAL SUPERVISOR Work Phone: [facility] HospitalUwvvabbvrh59-25-8919 17:34-0400Diastolic blood mm[Hg]Pascale Javierz GENERAL SUPERVISOR Work Phone: [facility] HospitalWpxmlggpkx69-36-4511 17:34-0400Heart rate92 /min Pascale Javierz GENERAL SUPERVISOR Work Phone: [facility] HospitalDmopqmfjpn30-31-3136 17:34-0400Respiratory rate18 /minLisa Herreraz GENERAL SUPERVISOR Work Phone: [facility] HospitalQnagigkoiz32-90-1583 17:34-3524NlV3% (BldA) [Mass fraction]97 %Pascale Javierz GENERAL SUPERVISOR Work Phone: [facility] HospitalDyjulitncc19-13-6473 17:34-0400Systolic blood dadieshj19 mm[Hg]Pascale Shalaholz GENERAL SUPERVISOR Work Phone: [facility] HospitalBjdhajiqex22-06-6644 16:51-0400Body .1 Chenisa Derrickhholz GENERAL SUPERVISOR Work Phone: [facility] HospitalItmzndzcjw17-15-5481 16:51-0400Body mass index (BMI) [Ratio]33.51 kg/m2Lisa Shalaholz GENERAL SUPERVISOR Work Phone: [facility] HospitalOgiatwlboq69-22-5836 16:51-0400Body temperature 97.81 [degF]Pascale Arana GENERAL SUPERVISOR Work Phone: [facility] HospitalXwmtjfteof49-38-5032 16:51-0400Body nuwdlx68.35 kgPascale Arana GENERAL SUPERVISOR Work Phone: [facility] HospitalEzosdgolnx87-18-7018 16:51-0400Heart rate68 /min Pascale Arana GENERAL SUPERVISOR Work Phone: [facility] HospitalYttjkpyhtz28-49-0841 16:51-0400Respiratory rate18 /minPascale Arana GENERAL SUPERVISOR Work Phone: [facility] HospitalOlarhvkicg29-01-1257 16:51-5787ZsC4% (BldA) [Mass fraction]97 %Pascale Arana GENERAL SUPERVISOR Work Phone: [facility] HospitalKrentfwtnq63-64-1860 16:10-0500Body .1 cmBrmanasa Nolanpatrick GENERAL SUPERVISOR Work Phone: [facility] HospitalHrsdqeoraj85-39-2232 16:10-0500Body mass index (BMI) [Ratio]33.28 kg/d4Yzpsxqhk Groves GENERAL SUPERVISOR Work Phone: [facility] HospitalFnwodroswo91-40-8182 16:10-0500Body temperature 97.2 [degF]Angel Luis Groves GENERAL SUPERVISOR Work Phone: [facility] HospitalDdueuzbvqk25-27-1620 16:10-0500Body jpnvxy94.72 kgBrmanasa Groves GENERAL SUPERVISOR Work Phone: [facility] HospitalQefbkfefub02-37-2112 16:10-0500Diastolic blood uztxrsis67 mm[Hg]Angel Luis Groves GENERAL SUPERVISOR Work Phone: [facility] HospitalTjgwegbogw31-51-0978 16:10-0500Heart rate79 /min Angel Luis Groves GENERAL SUPERVISOR Work Phone: [facility] HospitalJnjuglifoa08-25-9243 16:10-0500Respiratory rate16 /minBrmanasa Mathurtrick GENERAL SUPERVISOR Work Phone: [facility] HospitalBbpgcgdhah36-13-4959 16:10-3958YiG3% (BldA) [Mass fraction]98 %Angel Luis Mathurtrick GENERAL SUPERVISOR Work Phone: [facility] HospitalQwcztnzucr14-77-9549 16:10-0500Systolic blood suwdusgm750 mm[Hg]Angel Luis Mathurtrick GENERAL SUPERVISOR Work Phone: [facility] HospitalIdsumsyuwd73-05-3672 16:04-0500Body mass index (BMI) [Ratio]33.32 kg/m2Pascale Lastdes GENERAL SUPERVISOR Work Phone: [facility] HospitalBezmfjoxdq62-79-3870 16:04-0500Body temperature 98.1 [degF]Pascale Sumit GENERAL SUPERVISOR Work Phone: [facility] HospitalSjbamsyfgl76-02-9620 16:04-0500Body goswbj08.81 kgPascale Lastdes GENERAL SUPERVISOR Work Phone: [facility] HospitalLaukynbjmg65-21-7528 16:04-0500Diastolic blood xfiiefrq84 mm[Hg]Pascale Sumit GENERAL SUPERVISOR Work Phone: [facility] HospitalBipvpkfqxa96-33-4756 16:04-0500Heart rate80 /min Pascale Sumit GENERAL SUPERVISOR Work Phone: [facility] HospitalYvowaoeijl73-25-3724 16:04-0500Respiratory rate20 /minLisa Lastdes GENERAL SUPERVISOR Work Phone: [facility] HospitalQiunfudzws16-52-2270 16:04-1570ChT0% (BldA) [Mass fraction]97 %Pascale Sumit GENERAL SUPERVISOR Work Phone: [facility] HospitalCrxoippetq68-92-9727 16:04-0500Systolic blood wlblcjit71 mm[Hg]Pascale Sumit GENERAL SUPERVISOR Work Phone: [facility] HospitalXydalkfcva42-73-4699 14:59-0500Body pnaaqu436.1 cmBrittany Groves GENERAL SUPERVISOR Work Phone: [facility] HospitalUsofmttlla38-27-0567 14:59-0500Body mass index (BMI) [Ratio]34.28 kg/z9Hvzturfd Groves GENERAL SUPERVISOR Work Phone: [facility] HospitalYwznusbsmq57-77-2181 14:59-0500Body temperature 96.21 [degF]Angel Luis Groves GENERAL SUPERVISOR Work Phone: [facility] HospitalAurrezudwr27-94-8664 14:59-0500Body .44 kgBrittany Groves GENERAL SUPERVISOR Work Phone: [facility] HospitalDyvjtnhkck35-88-0374 14:59-0500Diastolic blood qdetrbkk14 mm[Hg]Angel Luis Groves GENERAL SUPERVISOR Work Phone: [facility] HospitalIbqiypuygx33-52-1070 14:59-0500Heart rate83 /min Angel Luis Groves GENERAL SUPERVISOR Work Phone: [facility] HospitalQluynihqtx02-89-1157 14:59-0500Respiratory rate22 /minBrmanasa Groves GENERAL SUPERVISOR Work Phone: [facility] HospitalGaupbuxuux39-97-3271 14:59-6743PnE1% (BldA) [Mass fraction]98 %Angel Luis Groves GENERAL SUPERVISOR Work Phone: [facility] HospitalAppzchtiks21-68-0580 14:59-0500Systolic blood dyvsuuko361 mm[Hg]Angel Luis Groves GENERAL SUPERVISOR Work Phone: [facility] HospitalIxrpykcyoo66-19-8120 15:56-0400Body wyiisk755.1 cmBrittmelani Groves GENERAL SUPERVISOR Work Phone: [facility] HospitalVvzrorsjaf89-70-3540 15:56-0400Body mass index (BMI) [Ratio]33.61 kg/o7Issfctkv Groves GENERAL SUPERVISOR Work Phone: [facility] HospitalBlmfcjzlqb94-21-2833 15:56-0400Body temperature 98.29 [degF]Angel Luis Groves GENERAL SUPERVISOR Work Phone: [facility] HospitalAngeigjpby18-07-2852 15:56-0400Body tafydy25.63 kgBrmanasa Nolanpatrick GENERAL SUPERVISOR Work Phone: [facility] HospitalKdvnrxoeaw24-23-4311 15:56-0400Diastolic blood fwvmejpe88 mm[Hg]Angel Luis Brittonzpatrick GENERAL SUPERVISOR Work Phone: [facility] HospitalEkgxiwudor37-52-8683 15:56-0400Heart rate67 /min Angel Luis Groves GENERAL SUPERVISOR Work Phone: [facility] HealthcareComment on above:98% A961-66-5575 15:56-0400Systolic blood kdkieddz152 mm[Hg]Angel Luis Groves GENERAL SUPERVISOR Work Phone: [facility] HospitalKmpenjdvtl52-00-5070 15:06-0400Blood Pressure LocationRon Palomares 856-6974Lzexkx-ZjnyiK[facility]08-26-2024 15:06-0400Diastolic blood mm[Hg]Ron Palomares 342-9474Epqrev-ErswmKettering Memorial Hospital08-26-2024 15:06-0400Heart rate85 /minBradhamad Jelani 649-8923Ywqyxs-JghbwKettering Memorial Hospital08-26-2024 15:06-0400Respiratory rate16 /minMohamad Mouchli 182-5776Eesmeq-QdukmKettering Memorial Hospital08-26-2024 15:06-0400Systolic blood nwavswvx426 mm[Hg]Ron Palomares 400-9506Amptmw-DmjqdKettering Memorial Hospital08-20-2024 15:46-0400Body ebzfko966.1 cmBrmanasa Mathurtrick GENERAL SUPERVISOR Work Phone: [facility] HospitalDeofqrtibs30-59-3472 15:46-0400Body mass index (BMI) [Ratio]33.28 kg/y2Nxyqauux Groves GENERAL SUPERVISOR Work Phone: noUniversity [facility] HospitalQquhrccrab52-35-8486 15:46-0400Body temperature 98.01 [degF]Angel Luis Nolanpatrick GENERAL SUPERVISOR Work Phone: [facility] HospitalXowpecooab32-22-6325 15:46-0400Body dxehqc38.72 kgAngel Luis Groves GENERAL SUPERVISOR Work Phone: NOUniversity of [facility] HospitalEcckzdiojc14-57-8415 15:46-0400Diastolic blood ulfttyut85 mm[Hg]Angel Luis Brittonzpatrick GENERAL SUPERVISOR Work Phone: noUniversity [facility] Children's HospitalOkqxxalqoz36-07-7720 15:46-0400Heart rate71 /min Angel Luis Groves GENERAL SUPERVISOR Work Phone: noms HealthcareComment on above:99% K695-87-7348 15:46-0400Systolic blood gkzeytxc912 mm[Hg]Angel Luis Brittonzpatrick GENERAL SUPERVISOR Work Phone: [facility] HospitalKkynokiroe22-92-6885 16:03-0500Blood Pressure LocationMichael NILL [facility] Nhibyunw75-15-2991 16:03-0500Diastolic blood bwfhulki57 mm[Hg]Segun NILL [facility] Vrcpprdh51-70-3408 16:03-0500Heart rate 72 /minMichael NILL [facility] Iaiumuzu21-91-8693 16:03-0500 Respiratory rate16 /minMichael NILL [facility] Arjnkahi48-92-9920 16:03-0500Systolic blood uvvjwsng576 mm[Hg]Segun NILL [facility] Oifdcxsk99-12-7044 13:00-0500Body .1 Phill Quintana Other [employer] Other 02-07-2022 13:00-0500Body mass index (BMI) [Ratio] 30.95 kg/g2Vfaiw Mariano Other [employer] Other 02-07-2022 13:00-0500Body iqeingfsxtd18 [degF]Kristin Mariano Other [employer] Other 02-07-2022 13:00-0500Body rynqrt74.37 kgAmber Mariano Other [employer] Other 02-07-2022 13:00-0500Respiratory rate16 /minAmber Mariano Other [employer] Other 02-07-2022 13:00-7123NkY2% (BldA) [Mass fraction]98 % Kristin Mariano Other noERPLY Other Encounters Encounter DateEncounter TypeCare ProviderFacilityStart: 05-05-2025 End: 19-28-2701unksbppxsyWbmt J Aichholz NP-C Work Phone: [facility] Work Phone: Start: 05-05-2025 End: 33-59-4336Radcptq encounter Pablo Del Tor[facility] Work Phone: Start: 79-32-1429Dhm-patient / Non-visitPascale GREENC-[facility] Professional [employer] Work Phone: Start: 05-05-2025 End: 20-08-4670owatmxvemuXuufrze Matt Eden MDFacility:PM [facility] Start: 05-02-2025 End: 37-33-2104Vakekysji encounterKendafaizan Gudino CMAProMedica Physicians Pelvic Health - UrogynecologyStart: 04-30-2025 End: 45-73-3130hucwxhlwbqRphwZuhair Arana NP-C Work Phone: [facility] Work Phone: Start: 04-30-2025 End: 03-99-7313Ymjejji encounter procedurePascale Arana NP-C-[facility] Work Phone: Start: 04-23-2025 End: 04-52-9595Jzncejy encounter procedureShun Arshad MD-[facility] Work Phone: Start: 04-23-2025 End: 35-25-9808lmegrnvxveSrmt J Aichholz GENERAL SUPERVISOR-C Work Phone: [facility] Work Phone: Start: 49-22-4795Tsa-patient / Non-visitChristian Olivier Dong MD-[facility] Work Phone: Start: 04-09-2025 End: 29-13-2204mkixmwydeiCCXCMG MALICKINot AvailableStart: 04-09-2025 End: 02-30-4376Urmsuu flowsheetBayley Malicki LPCNOMS [facility] Start: 04-09-2025 End: 51-38-8303Cqmuwq flowsheetBayley Malicki LPCNOMS [facility] Start: 04-03-2025 End: 24-08-7887Ledbhn outpatient visit 15 minutesEunice Dias PMHNP-BC Work Phone: NOF[facility] Behavioral HealthComment on above:JESSIKA (generalized anxiety disorder) ; Severe episode of recurrent major depressive disorder, without psychotic features (HCC); PTSD (post-traumatic stress disorder) ; Insomnia, unspecified type; FibromyalgiaStart: 04-03-2025 End: 93-84-4229qhsmoubotfQEYUKIEW BRITTONNot AvailableStart: 04-02-2025 End: 43-11-2668Tvrrcn outpatient new 45 minutesNadine C Laya MD Work Phone: ProDay[facility] Hospitalca Physicians Pelvic Health - UrogynComment on above:Cystocele with second degree uterine prolapse (Primary Dx); History of reconstructive repair of rectocele; Urge urinary incontinenceStart: 04-02-2025 End: 13-65-7320hoxrydcoleRKYBYB C KASSISShelby [facility] Hospital Ambulatory PPGStart: 03-25-2025 End: 38-48-3444vwzwvcmxklSFTKUK MALICKINot AvailableStart: 03-25-2025 End: 63-44-9149Ctmicv flowsheetBayley Malicki LPCNOMS [facility] Start: 03-25-2025 End: 74-74-3879Fpmuln flowsheetBayley Malicki LPCNOMS [facility] Start: 03-25-2025 End: 69-57-6088gjffevvjsbUbzw J Aichholz Work Phone: [facility] Work Phone: Start: 03-25-2025 End: 31-00-3669Ousfwhq encounter Dexter Arshad MD-[facility] Work Phone: start: 03-10-2025 End: 72-72-9087yiswvuvpsxFitwfws Vytautas Giedraitis MDFacility:[facility] Start: 03-06-2025 End: 42-29-9808pfgytgszddFFSABU MALICKINot AvailableStart: 03-06-2025 End: 45-11-9618Klthmp flowsheetBayley Malicki LPCNOMS [facility] Start: 03-06-2025 End: 90-70-8687Frejxk flowsheetBayley Malicki LPCNOMS [facility] Start: 03-05-2025 End: 66-01-0712Eopdsybkd Result EncounterLisa Sumit GENERAL SUPERVISOR Work Phone: noms External Department UnsolicitedStart: 03-05-2025 End: 70-27-6453Cmxrfgqty Result EncounterLisa Sumit GENERAL SUPERVISOR Work Phone: noms External Department UnsolicitedStart: 02-26-2025 End: 13-60-8324Bihqhbkws Result EncounterGeneric External Data ProviderNOCO External Department UnsolicitedStart: 02-26-2025 End: 93-78-2494Pedwzhceb Result EncounterGeneric External Data ProviderNOCO External Department UnsolicitedStart: 02-26-2025 End: 08-12-9752KurpofGhsq uSmit CAMARGO Work Phone: noms [facility] FMComment on above:Gastroesophageal reflux disease, unspecified whether esophagitis present (Primary Dx)Start: 02-25-2025 End: 44-93-5182Glyyzl outpatient visit 25 minutesPascale Sumit GENERAL SUPERVISOR Work Phone: noms [facility] FMComment on above:Severe episode of recurrent major depressive disorder, without psychotic features (HCC) (Primary Dx); Cigarette nicotine dependence without complication; PTSD (post-traumatic stress disorder) ; Class 1 obesity due to excess calories without serious comorbidity with body mass index (BMI) of 32.0 to 32.9 in adult; Iron deficiency anemia secondary to inadequate dietary iron intake; Primary insomniaStart: 02-25-2025 End: 83-42-6509hpfhlddqbiDRON AICHHOLZNot AvailableStart: 02-24-2025 End: 43-73-8007plyeoxjlppLILZBATZ BRITTONNot AvailableStart: 02-24-2025 End: 07-44-5039Vtlabg outpatient visit 15 minutesEunice Dias [facility]- Work Phone: noms [facility] HealthComment on above:JESSIKA (generalized anxiety disorder) ; Severe episode of recurrent major depressive disorder, without psychotic features (HCC); PTSD (post-traumatic stress disorder) ; Insomnia, unspecified type; Sleep apnea, unspecified typeStart: 02-24-2025 End: 10-13-0995Fszbxr Sarah Dias [facility]- Work Phone: noms [facility] HealthStart: 02-24-2025 End: 26-44-8765Lldymy Sarah Dias [facility]- Work Phone: noms [facility] HealthStart: 02-24-2025 End: 98-22-9179Nhrzt Birdie Asif MD Work Phone: [facility] Start: 02-20-2025 End: 83-84-4629ZkfvauKvyc Aichholz GENERAL SUPERVISOR Work Phone: noms CWM FMComment on above:Psychophysiological insomniaStart: 02-19-2025 End: 45-86-8572Fooxrorex Result EncounterGeneric External Data ProviderNOMS External Department UnsolicitedStart: 02-19-2025 End: 21-62-1287Ddjzbonsv Result EncounterGeneric External Data ProviderNOMS External Department UnsolicitedStart: 02-11-2025 End: 90-72-5338SxkuqhXlsu Aichholz GENERAL SUPERVISOR Work Phone: noms C[facility] FMComment on above:UTI (urinary tract infection), uncomplicated; Class 1 obesity due to excess calories without serious comorbidity in adult, unspecified BMI; BMI 32.0-32.9,adultStart: 02-06-2025 End: 43-30-1592Qzimhu outpatient new 30 minutesTan DO Work Phone: [facility]/GynecologyComment on above:Cystocele with second degree uterine prolapse (Primary Dx); History of reconstructive repair of rectocele; Urge urinary incontinence; Incomplete emptying of bladder; Atrophic vaginitisStart: 02-06-2025 End: 60-37-1342KiranyPaws Aichholz GENERAL SUPERVISOR Work Phone: noms CWM FMComment on above:URTI (acute upper respiratory infection); Non-recurrent acute suppurative otitis media of both ears without spontaneous rupture of tympanic membranesStart: 02-05-2025 End: 08-33-2191Mwknwudqv Result EncounterGeneric External Data ProviderNOMS External Department UnsolicitedStart: 02-05-2025 End: 68-02-4318Kpgelpkdi Result EncounterGeneric External Data ProviderNOMS External Department UnsolicitedStart: 01-22-2025 End: 22-34-9402Yzdzao Sarah Dias HNP-BC Work Phone: noms CI BHStart: 01-22-2025 End: 89-58-3527Fdzwjx Sarah Dias HNP-BC Work Phone: noms CI BHStart: 01-22-2025 End: 54-01-8999nagvqtbhkzJXZRVUGY BRITTONNot AvailableStart: 01-20-2025 End: 56-79-7103wzflmhnadfBqlbnhn Vytautas Giedraitis MDFacility:[facility] [place] Start: 01-14-2025 End: 03-64-2200Lzebeefyi Result EncounterLisa Derrickhholz GENERAL SUPERVISOR Work Phone: noms External Department UnsolicitedStart: 01-14-2025 End: 00-19-5482Cqgdnbsdt Result EncounterLisa Aichholz GENERAL SUPERVISOR Work Phone: noms External Department UnsolicitedStart: 01-14-2025 End: 67-87-5482XdeqpfDscz Aichholz GENERAL SUPERVISOR Work Phone: noms CWM FMComment on above:URTI (acute upper respiratory infection); Non-recurrent acute suppurative otitis media of both ears without spontaneous rupture of tympanic membranesStart: 01-07-2025 End: 95-47-1103Uzfioj OnlyLisa Derrickhholz GENERAL SUPERVISOR Work Phone: noms CWM FMComment on above:B12 deficiency (Primary Dx); Iron deficiency anemia secondary to inadequate dietary iron intakeStart: 01-06-2025 End: 22-03-4853Zwmfmp outpatient visit 25 minutesLisa Sumit GENERAL SUPERVISOR Work Phone: noms CWM FMComment on above:Bipolar disorder with severe depression (HCC) (Primary Dx); Gastroesophageal reflux disease, unspecified whether esophagitis present; Class 1 obesity due to excess calories without serious comorbidity with body mass index (BMI) of 32.0 to 32.9 in adult; Cigarette nicotine dependence without complication; Stress; Fibromyalgia; Psychophysiological insomniaStart: 01-06-2025 End: 77-90-7612zujrsqoeerOWXX AICHHOLZNot AvailableStart: 01-06-2025 End: 61-25-9665Yyvnce flowsheetLisa Mezahholz GENERAL SUPERVISOR Work Phone: noms CWM FMStart: 01-06-2025 End: 19-06-8548Wnrkjw flowsheetLisa Aichholz GENERAL SUPERVISOR Work Phone: noms CWM FMStart: 01-06-2025 End: 17-68-9539Tnouzvdwa encounterLisa Derrickhholz GENERAL SUPERVISOR Work Phone: noms CWM FMStart: 12-18-2024 End: 56-32-9166GwhemzXbwz Shalaholz GENERAL SUPERVISOR Work Phone: noms CWM FMComment on above:URTI (acute upper respiratory infection); Non-recurrent acute suppurative otitis media of both ears without spontaneous rupture of tympanic membranesStart: 11-20-2024 End: 59-94-6317vmouyxvhcjYFXV AICHHOLZNot AvailableStart: 11-20-2024 End: 11-16-1139Xmwnfkn encounter procedureLisa Lastholz GENERAL SUPERVISOR Work Phone: noms HealthcareStart: 11-20-2024 End: 92-04-6669Ozxkjyfo preventive med est patient 40-64yrsLisa Shalaholz GENERAL SUPERVISOR Work Phone: noms CWM FMComment on above:Well [...] Hot flashes due to menopauseStart: 11-20-2024 End: 48-41-8679Bgxmuu flowsheetLisa Aichholz GENERAL SUPERVISOR Work Phone: noms CWM FMStart: 11-20-2024 End: 69-28-6479Hzusaj flowsheetPascale Arana GENERAL SUPERVISOR Work Phone: noms CWM FMStart: 11-20-2024 End: 60-66-1153Nlmkmqisk Result EncounterPascale Arana GENERAL SUPERVISOR Work Phone: noms External Department UnsolicitedStart: 11-18-2024 End: 58-68-6584TcvyboDdye Aichholz GENERAL SUPERVISOR Work Phone: noms CWM FMComment on above:Overactive bladder due to prolapse of female genital organGastroesophageal reflux disease, unspecified whether esophagitis presentPsychophysiological insomniaFibromyalgiaEnvironmental and seasonal allergiesURTI (acute upper respiratory infection); Non-recurrent acute suppurative otitis media of both ears without spontaneous rupture of tympanic membranesBipolar disorder with severe depression (CMS/[facility]) Start: 10-23-2024 End: 35-16-1344Vayplu outpatient visit 15 Twila Arana GENERAL SUPERVISOR Work Phone: noms CWM FMComment on above:Iron deficiency anemia secondary to inadequate dietary iron intake (Primary Dx); Class 1 obesity due to excess calories without serious comorbidity in adult, unspecified BMI; Cigarette nicotine dependence without complication; B12 deficiency; BMI 32.0-32.9,adultStart: 10-23-2024 End: 96-64-7150Rurlvnswb Result EncounterPascale Arana GENERAL SUPERVISOR Work Phone: noms External Department UnsolicitedStart: 10-23-2024 End: 45-87-0423Gbjdpdfhi Result EncounterPascale Herreraantwon GENERAL SUPERVISOR Work Phone: noms External Department UnsolicitedStart: 10-23-2024 End: 32-14-0979Xuwzeng encounter Shaniqua De Anda MD Work Phone: noms HealthcareStart: 10-23-2024 End: 41-52-9925ApsklcLnxm Naderer MD Work Phone: noms CWM FMComment on above:URTI (acute upper respiratory infection); Non-recurrent acute suppurative otitis media of both ears without spontaneous rupture of tympanic membranesStart: 10-03-2024 End: 41-06-1110Vybyygfpr Result EncounterPascale Lastdes GENERAL SUPERVISOR Work Phone: noms External Department UnsolicitedStart: 10-03-2024 End: 31-67-6043Dlulthspe Result EncounterLisa Lastdes GENERAL SUPERVISOR Work Phone: noms External Department UnsolicitedStart: 10-02-2024 End: 95-96-6311Gqbzii outpatient visit 25 minutesGalina Sumit GENERAL SUPERVISOR Work Phone: noms CWM FMComment on above:Gastroesophageal [...] female genital organ; BMI 34.0-34.9,adultStart: 10-02-2024 End: 93-74-7447kgpkiojfmhVZLZ AICHHOLZNot AvailableStart: 10-02-2024 End: 34-97-5128Mboawu flowsheetLisa Mezahholz GENERAL SUPERVISOR Work Phone: noms CWM FMStart: 10-02-2024 End: 76-17-6266Ovpxda flowsheetLisa Derrickhholz GENERAL SUPERVISOR Work Phone: noms CWM FMStart: 09-09-2024 End: 80-44-0884Ynuzsicpk Result EncounterGeneric External Data ProviderNOMS External Department UnsolicitedStart: 09-09-2024 End: 51-96-7277Zbbubxueh Result EncounterGeneric External Data ProviderNOMS External Department UnsolicitedStart: 09-06-2024 End: 55-98-2021AnwivaLwcs Aichholz GENERAL SUPERVISOR Work Phone: NOIZ CWM FMComment on above:Environmental and seasonal allergiesStart: 09-05-2024 End: 91-97-2606Kkruynrup Result EncounterGeneric External Data ProviderNOMS External Department UnsolicitedStart: 09-05-2024 End: 95-55-1412Cguhuejpw Result EncounterGeneric External Data ProviderNOMS External Department UnsolicitedStart: 09-04-2024 End: 83-19-3653Xzsyjh outpatient visit 10 minutesBrmanasa Groves GENERAL SUPERVISOR Work Phone: NODW CWM FMComment on above:BMI 33.0-33.9,adult (Primary Dx); Bipolar disorder with severe depression (CMS/HCC); Fibromyalgia; Gastro-esophageal reflux disease without esophagitis; Esophageal reflux; BMI 34.0-34.9,adult; Psychophysiological insomnia; Overactive bladder due to prolapse of female genital organStart: 09-04-2024 End: 13-04-0463gybgwtrylxTJUTQCXJ FITZPATRICKNot AvailableStart: 09-04-2024 End: 24-01-4729Lafhwb flowsheetBrittany Groves GENERAL SUPERVISOR Work Phone: NOKV CWM FMStart: 09-04-2024 End: 11-04-8942Nwwrgv flowsheetBrittany Groves GENERAL SUPERVISOR Work Phone: NORH CWM FMStart: 08-28-2024 End: 95-59-5036OxtvrsLgbkznuj Groves GENERAL SUPERVISOR Work Phone: NOMS CWM FMComment on above:FibromyalgiaStart: 08-14-2024 End: 73-38-5439DddleaDxaonlsd Groves GENERAL SUPERVISOR Work Phone: NOFY CWM FMComment on above:FibromyalgiaStart: 08-12-2024 End: 72-13-5245Yubbbq outpatient visit 25 minutesLisa Sumit GENERAL SUPERVISOR Work Phone: NOFX CWM FMComment on above:Acute non-recurrent maxillary sinusitis (Primary Dx); Cigarette nicotine dependence without complication; Class 1 obesity due to excess calories without serious comorbidity in adult, unspecified BMI; Environmental and seasonal allergies; Cutaneous abscess of abdominal wallStart: 08-12-2024 End: 39-79-5530halkjnksjjNHOF AICHHOLZNot AvailableStart: 08-12-2024 End: 26-71-4123Hvaopl flowsheetLisa Shalaholz GENERAL SUPERVISOR Work Phone: noms CWM FMStart: 08-12-2024 End: 78-54-5587Mslsuq flowsheetLisa Shalaholz GENERAL SUPERVISOR Work Phone: noms CWM FMStart: 08-12-2024 End: 22-92-9421Hueweunl Result EncounterLisa Shalaholz GENERAL SUPERVISOR Work Phone: noms External Department UnsolicitedStart: 08-05-2024 End: 33-03-9896Wcuxuo OnlyAngel Luis Blackburnk GENERAL SUPERVISOR Work Phone: noms CWM FMComment on above:B12 deficiency (Primary Dx); Iron deficiency anemia, unspecified iron deficiency anemia typeStart: 08-01-2024 End: 38-28-8536Aphfpssya Result EncounterBrmanasa Mathurtrick GENERAL SUPERVISOR Work Phone: noms External Department UnsolicitedStart: 08-01-2024 End: 00-88-2224Rwlzhkxqq Result EncounterBrittmelani MathurGroves GENERAL SUPERVISOR Work Phone: noms External Department UnsolicitedStart: 07-31-2024 End: 30-15-2635Tzuukq outpatient visit 15 minutesBrmanasa Mathurtrick GENERAL SUPERVISOR Work Phone: noms CWM FMComment on above:Iron deficiency anemia secondary to inadequate dietary iron intake (Primary Dx); Fibromyalgia; Psychophysiological insomnia; BMI 34.0-34.9,adultStart: 07-31-2024 End: 60-20-4057kkixdrxyraMBDDIQRK FITALEXIATRICKNot AvailableStart: 07-31-2024 End: 56-85-4290Miafcd flowsheetBrittany Groves GENERAL SUPERVISOR Work Phone: NOMS CWM FMStart: 07-31-2024 End: 11-64-7744Pxllqz flowsheetBrittany Groves GENERAL SUPERVISOR Work Phone: NOMS CWM FMStart: 07-25-2024 End: 04-84-1381XdupsrAwhlrgow Groves GENERAL SUPERVISOR Work Phone: NOMS CWM FMComment on above:Psychophysiological insomniaStart: 06-25-2024 End: 03-78-2121RjodadPrxxojup Groves GENERAL SUPERVISOR Work Phone: NOMS CWM FMComment on above:Psychophysiological insomniaStart: 06-11-2024 End: 04-54-9153Nwskkd OnlyBrittany Groves GENERAL SUPERVISOR Work Phone: NOMS CWM FMComment on above:Fibromyalgia (Primary Dx) Start: 06-03-2024 End: 84-03-3780UoesemJvavzkwp Groves GENERAL SUPERVISOR Work Phone: NOMS CWM FMComment on above:FibromyalgiaStart: 05-27-2024 End: 57-32-3590Srppbo OnlyBrittany Groves GENERAL SUPERVISOR Work Phone: NOMS CWM FMComment on above:Psychophysiological insomnia (Primary Dx)Start: 04-18-2024 End: 07-01-6744aoedxkbklnJS Tyson Normanjaye Work Phone: [facility] Work Phone: Start: 04-18-2024 End: 44-95-3522Iucrvig encounter procedureMD Tyson Marquezvincenzo Work Phone: [facility] [address] Work Phone: Start: 04-10-2024 End: 79-96-5058Flllan outpatient visit 15 minutesBrittany Groves GENERAL SUPERVISOR Work Phone: NOMS CWM FMComment on above:Psychophysiological insomnia (Primary Dx); Fibromyalgia; Constipation, unspecified constipation typeStart: 04-10-2024 End: 88-34-3792Gmtwyz flowsheetBrittany Groves GENERAL SUPERVISOR Work Phone: NOMS CWM FMStart: 04-10-2024 End: 14-32-9513Puwhqf flowsheetBrittany Groevs GENERAL SUPERVISOR Work Phone: NOMS CWM FMStart: 03-18-2024 End: 98-13-7997naiiuvbpvwGnagevn A. MouchliFacility:[facility] DHStart: 03-18-2024 End: 78-90-4416Kaqypmz encounter Kourtney Palomares [phone]-QuqleHolzer [facility] Start: 03-13-2024 End: 86-00-6828YmemhxYilkmrcd Groves GENERAL SUPERVISOR Work Phone: NOMS CWM FMComment on above:Fibromyalgia (Primary Dx) Start: 03-12-2024 End: 18-51-0316Bqdmue outpatient visit 15 minutesBrittany Groves GENERAL SUPERVISOR Work Phone: NOHQ CWM FMComment on above:Constipation, unspecified constipation type (Primary Dx); FibromyalgiaStart: 03-12-2024 End: 76-44-5949Gtadyu flowsheetBrittany Groves GENERAL SUPERVISOR Work Phone: NOMS CWM FMStart: 03-12-2024 End: 18-99-8103Ihhhlw flowsheetBrittany Groves GENERAL SUPERVISOR Work Phone: NOMS CWM FMStart: 75-32-7491hlpmekhebcPrkdpmo Mouchli Facility:[facility] DHStart: 11-39-4868Lpj-patient / Non-visitMD Tyson Collazo Work Phone: [facility] Work Phone: Start: 51-03-7305SvkuqnXpfrni Fawwad MD Work Phone: NONV CW FMComment on above:Bipolar disorder with severe depression (CMS/HCC)Start: 07-19-2023 End: 38-92-4611eseqobldchVsbjrds R NILLFacility:CD:[id number]: 06-07-2023 End: 82-05-9679xaeuaavjprOjkkchf R NILLFacility:[facility]ueStart: 06-07-2023 End: 40-80-9081Oadwude encounter procedureMichael R NILL General Surgery Nill/Said [place] Start: 29-14-8909uudsmxabqlDuspkuc MouchliFacility:[facility] Centertart: 41-55-9984jkouvwptczPnmvneo MouchliFacility: Sherrytart: 04-07-2023 End: 58-81-6734oekabcznpnZAVCZXOXProMedica [facility] Hospital Start: 35-11-2575avbmhpyxwbERSXZPANProMedica Toledo Hospital Start: 05-31-2022 End: 93-18-1667nbqfaqyomeNQ TAMIKO Dickens WESTFacility:W0Gmbdv: 05-10-2022 End: 20-06-0056zsypquvnkpKZ ELLIOT JOSEFacility:P5Dkdkp: 04-19-2022 End: 08-45-4388zksmcksqdnTTBFFUWF CULLENFacility:P5Vpqae: 03-29-2022 End: 24-37-5007dwwrovhllpNZNALNZH CULLENFacility:I0Xddty: 03-10-2022 End: 27-46-1824vkpkzudrtiWMXKA Letitia [facility]Facility:O3Dkiwh: 97-85-6926Trvzhhqem for preprocedural cardiovascular examinationPETER D [facility] Hospitaltart: 37-19-9160Tghnicoae for preprocedural laboratory examinationPETER D [facility] Hospitaltart: 03-03-2022 End: 16-58-9536rmmsofyespLUIWA D [facility]EEFacility:W7Sofhg: 03-03-2022 End: 20-32-5648Rqwqkxxdr for preprocedural laboratory examinationPETER D [facility]EEFacility:U8Hrfkh: 02-22-2022 End: 36-52-9126sufxybkgejOSQCG D [facility]ITALANDERFacility:P9Hwlyj: 02-09-2022 End: 59-87-7448jfmyykureaPVHSW D [facility]ITALANDERFacility:P9Lhtco: 08-30-2021 End: 25-02-7654nunafdhpcrWlrvq Mariano Other [facility] Guruji Other Start: 81-98-9703Yytqrx outpatient visit 15 minutes Kristin BrockG [facility] ClydeStart: 06-07-2021 End: 72-23-8378lxqrrrvkbrCW ROBERTO HOUSEFacility:L2Ykmfz: 11-14-2018 End: 94-49-1581Ewrsays encounter procedureDEFAULT PHYSICIANFacility:[facility] Procedures DateProcedureProcedure DetailPerforming ClinicianStart: 04-09-2025 End: 01-73-3153Oabayypmyjkyb w/patient 60 minutesGAD (generalized anxiety disorder)Rohan Waters LPCComment on above:JESSIKA (generalized anxiety disorder) ; Severe episode of recurrent major depressive disorder, without psychotic features (HCC); PTSD (post-traumatic stress disorder)Start: 03-25-2025 End: 94-85-0343Latnlecfpitav w/patient 60 minutesGAD (generalized anxiety disorder)Rohan Waters LPCComment on above:JESSIKA (generalized anxiety disorder) ; Severe episode of recurrent major depressive disorder, without psychotic features (HCC); PTSD (post-traumatic stress disorder)Start: 03-06-2025 End: 85-78-6618Mgwufxtnogf diagnostic evaluationGAD (generalized anxiety disorder)Rohan Waters LPCComment on above:JESSIKA (generalized anxiety disorder) ; Severe episode of recurrent major depressive disorder, without psychotic features (HCC); PTSD (post-traumatic stress disorder)Start: 66-43-7216WXJ CBC WITH AUTO DIFFPascale Arana GENERAL SUPERVISOR Work Phone: Start: 52-79-3199FUSBAJOHT BLOOD PRESSUREGeneric External Data ProviderStart: 78-63-3058GM FOOT LT MIN 3VGeneric External Data ProviderStart: 56-52-6041IS LUMBAR SPINE WO CONGeneric External Data Provider Start: 98-13-6393Day spinal canal cervical w/o contrast matrlGeneric External Data ProviderStart: 01-22-2025 End: 56-62-6352Wcimjxvybah diagnostic eval w/medical servicesGAD (generalized anxiety disorder)Eunice Dias [facility]- Work Phone: comment on above:JESSIKA (generalized anxiety disorder) ; Severe episode of recurrent major depressive disorder, without psychotic features (HCC); PTSD (post-traumatic stress disorder) ; Insomnia, unspecified type; Sleep apnea, unspecified type; Encounter for drug screeningStart: 18-46-9706CDJ CBC WITH AUTO DIFFLisa Sumit GENERAL SUPERVISOR Work Phone: Start: 67-79-5668LKV,APTIMA HPV,AGE GDLNLisa Sumit GENERAL SUPERVISOR Work Phone: Start: 14-44-4102Mvjzotnkryw observation [Identifier] in Cervix by Cyto stainLisa Arana GENERAL SUPERVISOR Work Phone: Start: 33-08-8680AY TOMOSYNTHESIS SCREENING BILisa Sumit GENERAL SUPERVISOR Work Phone: Start: 59-63-6565JqbmaeriflcPpfs Sumit GENERAL SUPERVISOR Work Phone: Start: 98-30-0369RAU CBC WITH AUTO DIFFLisa Derrickhholz GENERAL SUPERVISOR Work Phone: Start: 92-67-0808FI FOOT LT WO CONGeneric External Data ProviderStart: 53-15-3547NL FOOT LT MIN 3VGeneric External Data Provider Start: 23-21-5428MPSQIOM WOUND/ULCER (HTRX)Pascale Arana GENERAL SUPERVISOR Work Phone: Start: 22-99-7258NJT CBC WITH AUTO DIFFBrittany Groves GENERAL SUPERVISOR Work Phone: Start: 26-52-6378LgjsicinhfeDxbsuo Fawwad MD Work Phone: Start: 72-67-9956SzffwymwxnjormmsdekzcfwvspYwslwkd NILL Start: 69-39-3810Skpoyi of stomachMichael NILL Start: 08-56-7791Iluwisgutiene cystoscopyMichael NILL Start: 59-07-2577Horfnobrsttss cystoscopyMichael NILL CholecystectomyMichael NILL H/O: surgeryHistory of reconstructive repair of rectoceleTanya L Muniz DO Work Phone: H/O: surgeryHistory of reconstructive repair of rectoceleJovon Asif MD Work Phone: H/O: surgeryHistory of reconstructive repair of rectoceleKendal Shahab CMALigation of fallopian tubeMichael NILL Repair of cystoceleMichael NILL Plan of Treatment DateCare ActivityDetailAuthorStart: 88-04-4204Ptexoovwd for malignant neoplasm of colonNOMS HealthcareStart: 32-93-1022Qkwbjobaj for malignant neoplasm of cervixNOMS HealthcareStart: 88-95-3360Jgfyadl ScreeningTobacco Screening [facility] SystemStart: 49-32-7706Pcpgn BMI ScreeningAdult BMI Screening [facility] SystemStart: 36-11-1278Bcimssq ScreeningTobacco Screening [facility] SystemStart: 77-86-1809Lcxja BMI ScreeningAdult BMI Screening [facility] SystemStart: 09-89-6906Trwiwbp ScreeningTobacco Screening [facility] SystemStart: 67-37-3467Suhqbugvu for malignant neoplasm of breastMammogramNOMS HealthcareStart: 05-28-2025 End: 98-59-2201Mfoluuh encounter rjdgkerhl52/05/2025 2:30 PM EST Procedure visit [facility] [address] [place] [address] [facility] [phone] Jovon Asif MD [address] [facility] [address] [place] [address] [facility] UrogynStart: 05-21-2025 End: 84-36-2367Oywidr Work05/21/2025 4:30 PM EDT Social Work [facility] [address] [facility] [[email or web address]] [address] [place] [id number] Rohan Waters [facility] HealthStart: 05-19-2025 End: 47-51-3328Kfprjgp encounter /27/2025 3:30 PM EDT Office Visit [facility] [address] [facility] [[email or web address] [address] [place] [address] Angeli-Macarena Santos, ENVIRONMENTAL CONSERVATION OFFICER-BRIDGE OPENER [address] [facility] [address] [place], [id number] [facility] HealthStart: 04-30-2025 End: 54-12-6596Nrihqqz encounter qvpvqjfel94/08/2025 4:30 PM EDT Office Visit [facility] [address] [place] [address] Pascale Arana NP [address] [place] [address] NOMS CWM FMStart: 92-27-6685Vvjmhak referralPomerene Hospital Work Phone: Start: 04-24-2025 End: 55-02-7445Gtqrtj Work04/24/2025 4:30 PM EDT Social Work [facility] [address] [place] [address] [place] [phone] Rohan Waters LPCNO [facility] HealthStart: 04-09-2025 End: 69-04-1569Qtswew WorkNOMS [facility] Behavioral HealthComment on above:Arrived Start: 04-03-2025 End: 36-85-2594Jgcihsrtfexr consultation with ghgqvxu1404/03/2025 9:00 AM EDT Telemedicine [facility] [address] [place] [address] [place] [address] Eunice Dias, PMHNP-BC [address] [place] [address] [place] [address] [facility] HealthStart: 04-02-2025 End: 05-04-9603Qlfpwwu encounter dwwlflpki82/10/2025 3:00 PM EDT Office Visit [facility] [address] [facility] [address] [place] [phone] Jovon Asif MD [address] [place] [address] [place] [address] [facility] - UrogynStart: 03-25-2025 End: 44-93-2572Fpyfip WorkNOInspire Specialty Hospital – Midwest Cityyde Behavioral HealthComment on above:Arrived Start: 68-40-8484Zobtjusio vaccinationNOCO HealthcareStart: 03-06-2025 End: 05-71-8525Axsczf WorkNOMS CI BHComment on above:ArrivedStart: 02-25-2025 End: 75-10-5134QJZ W Auto Differential panel - BloodCBC and differential Lab Routine Iron deficiency anemia secondary to inadequate dietary iron intake Expected: 02/25/2025 (Approximate), Expires: 02/25/2026[facility] Work Phone: Comment on above:Expected: 02/25/2025 (Approximate), Expires: 02/25/2026Start: 02-25-2025 End: 18-53-4505Qcka and Iron binding capacity panel - Serum or PlasmaIron level Lab Routine Iron deficiency anemia secondary to inadequate dietary iron intake Expected:02/25/2025 (Approximate), Expires: 02/25/2026NOMS HealthcareComment on above:Expected: 02/25/2025 (Approximate), Expires: 02/25/2026Start: 02-25-2025 End: 64-92-9404Xtasgtk encounter howuqvxnk67/05/2025 11:30 AM EDT [facility] [address] [place] [address] Pascale Arana, GENERAL SUPERVISOR [address] [place] [address] [facility] FMStart: 02-24-2025 End: 05-58-5555Kgareae encounter procedureNOMS CI BHStart: 02-05-2025 End: 32-52-6431Hgrehpy encounter zlripgzcv46/16/2025 3:20 PM EDT [facility] [address] [place] [address] Pascale Arana, GENERAL SUPERVISOR [address] [place] [address] [facility] FMStart: 01-22-2025 End: 91-21-8801Pjbtxec encounter procedureNOMS CI BHComment on above:Bipolar disorder with severe depression (HCC)Start: 01-07-2025 End: 76-88-9093ZRH W Auto Differential panel - BloodCBC and differential Lab Routine Iron deficiency anemia secondary to inadequate dietary iron intake Expected: 01/07/2025 (Approximate), Expires: 01/07/2026[facility] Work Phone: Comment on above:Expected: 01/07/2025 (Approximate), Expires: 01/07/2026Start: 01-07-2025 End: 32-52-8696Ubgopgxpg (Vitamin B12) [Mass/volume] in Serum or PlasmaVitamin B12 Lab Routine B12 deficiency Iron deficiency anemia secondary to inadequate dietary iron intake Expected: 01/07/2025 (Approximate), Expires: 01/07/2026[facility] HealthcareComment on above:Expected: 01/07/2025 (Approximate), Expires: 01/07/2026Start: 01-07-2025 End: 88-18-2316Nwpipmgd [Mass/volume] in Serum or PlasmaFerritin Lab Routine Iron deficiency anemia secondary to inadequate dietary iron intake Expected: (Approximate), Expires: 01/07/2026[facility] HealthcareComment on above: Expected: 01/07/2025 (Approximate), Expires: 01/07/2026Start: 01-07-2025 End: 39-58-9853Xwjl + transferrin + TIBCIron + transferrin + TIBC Lab Routine Iron deficiency anemia secondary to inadequate dietary iron intake Expected: 01/07/2025 (Approximate), Expires: 01/07/2026[facility] HealthcareComment on above: Expected: 01/07/2025 (Approximate), Expires: 01/07/2026Start: 01-06-2025 End: 99-27-1234Kozovuh encounter procedureNOMS [facility] FMComment on above: Gastroesophageal reflux disease, unspecified whether esophagitis present (Primary Dx); Class 1 obesity due to excess calories without serious comorbidity with body mass index (BMI) of 32.0 to 32.9 in adult; Cigarette nicotine dependence without complicationStart: 11-20-2024 End: 81-27-4292Ngxevkv encounter jlpmqaukn50/30/2025 3:20 PM EDT Office Visit [facility] [address] [place] [address] Pascale Arana NP [address] [place] [address] NOMS ERMIAS FMStart: 11-20-2024 End: 58-00-1316ZCGU PREP TIS PAP AND HR HPV DNATHIN PREP TIS PAP AND HR HPV DNA Pathology and Cytology Routine Well woman exam with routine gynecological exam Expected: 11/20/2024 (Approximate), Expires: 11/20/2025[facility] Work Phone: Comment on above:Expected: 11/20/2024 (Approximate), Expires: 11/20/2025Start: 10-23-2024 End: 63-45-3858Waqkozv encounter /02/2025 5:30 PM EDT Procedure Visit [facility] M [address] [place] [address] Pascale Arana, GENERAL SUPERVISOR [address] [place] [address] NOMS CWLashaun FMStart: 18-57-9610Pdhtnetty vaccinationInfluenza Vaccine (#1)NOMS HealthcareComment on above:Postponed from 03/24/2024 (Patient Refused)Start: 10-04-2024 End: 45-01-7201ALG W Auto Differential panel - BloodCBC and differential Lab Routine B12 deficiency Iron deficiency anemia, unspecified iron deficiencyanemia type Expected: 10/04/2024 (Approximate), Expires: 08/06/2025[facility] Work Phone: Comment on above:Expected: 10/04/2024 (Approximate), Expires: 08/06/2025Start: 10-04-2024 End: 17-39-2647Itjwdalmh (Vitamin B12) [Mass/volume] in Serum or PlasmaVitamin B12 Lab Routine B12 deficiency Iron deficiency anemia, unspecified iron deficiency anemia type Expected: 10/04/2024 (Approximate), Expires: 08/06/2025 NOMS HealthcareComment on above:Expected: 10/04/2024 (Approximate), Expires: 08/06/2025Start: 10-04-2024 End: 30-35-6369Frphkeda [Mass/volume] in Serum or PlasmaFerritin Lab Routine B12 deficiency Iron deficiency anemia, unspecified iron deficiency anemia type Expected: 10/04/2024 (Approximate), Expires: 08/06/2025[facility] HealthcareComment on above:Expected: 10/04/2024 (Approximate), Expires: 08/06/2025Start: 10-04-2024 End: 71-03-8283Pvuu + transferrin + TIBCIron + transferrin + TIBC Lab Routine B12 deficiency Iron deficiency anemia, unspecified iron deficiency anemia type Expected: 10/04/2024 (Approximate), Expires: 08/06/2025[facility] HealthcareComment on above:Expected: 10/04/2024 (Approximate), Expires: 08/06/2025Start: 10-02-2024 End: 08-07-6899Zqafrbj encounter procedureNOCO CWM FMComment on above:Class 1 obesity due to excess calories without serious comorbidity in adult, unspecified BMI (Primary Dx); Iron deficiency anemia secondary to inadequate dietary iron intake; Cigarette nicotine dependence without complication; Encounter for screening mammogram for malignant neoplasm of breast; B12 deficiencyStart: 10-02-2024 End: 16-15-6610MQH W Auto Differential panel - BloodCBC and differential Lab Routine Iron deficiency anemia secondary to inadequate dietary iron cfjospP60 deficiency Expected: 10/02/2024 (Approximate), Expires: 10/02/2025[facility] HealthcareComment on above:Expected: 10/02/2024 (Approximate), Expires: 10/02/2025Start: 10-02-2024 End: 74-82-1926Vtwtegobg (Vitamin B12) [Mass/volume] in Serum or PlasmaVitamin B12 Lab Routine B12 deficiency Expected: 10/02/2024 (Approximate), Expires: 10/02/2025[facility] HealthcareComment on above:Expected: 10/02/2024 (Approximate), Expires: 10/02/2025Start: 10-02-2024 End: 50-96-1699Uskzibbd [Mass/volume] in Serum or PlasmaFerritin Lab Routine Iron deficiency anemia secondary to inadequate dietary iron intake Expected: (Approximate), Expires: 10/02/2025[facility] HealthcareComment on above: Expected: 10/02/2024 (Approximate), Expires: 10/02/2025Start: 10-02-2024 End: 57-55-8487Iuta + transferrin + TIBCIron + transferrin + TIBC Lab Routine Iron deficiency anemia secondary to inadequate dietary iron intake Expected: 10/02/2024 (Approximate), Expires: 10/02/2025[facility] HealthcareComment on above: Expected: 10/02/2024 (Approximate), Expires: 10/02/2025Start: 10-02-2024 End: 60-66-8681BR Breast - bilateral ScreeningBilateral screening mammogram Imaging Routine Encounter for screening mammogram for malignant neoplasm of breast Expected: 10/02/2024 (Approximate), Expires: 12/02/2025[facility] Work Phone: Comment on above:Expected: 10/02/2024 (Approximate), Expires: 12/02/2025Start: 09-04-2024 End: 90-00-8003Dcxihbk encounter procedureNOALLIANCEHEALTH [facility] FMComment on above:Arrived Start: 08-12-2024 End: 11-59-3556Fkjcvdf encounter mokxniuyr45/20/2025 4:00 PM EST Office Visit [facility] [address] [place] [address] Pascale Arana, MARY JO [address] [place] [address] ArrivedNOALLIANCEHEALTH [facility] [place] [place] FMComment on above:ArrivedStart: 08-12-2024 End: 91-21-9208JDRLZGSGAUI WOUND (HTRX)SUPERFICIAL WOUND (HTRX) Lab Routine Cutaneous abscess of abdominal wall Expected: 08/12/2024 (Approximate), Expires: 08/12/2025[facility] Work Phone: Comment on above:Expected: 08/12/2024 (Approximate), Expires: 08/12/2025Start: 07-31-2024 End: 24-85-2601Oepndrl encounter procedureNOALLIANCEHEALTH [facility] [place] [place] FMComment on above:Arrived Start: 07-31-2024 End: 18-94-8497Oazpsotkb (Vitamin B12) [Mass/volume] in Serum or PlasmaVitamin B12 Lab Routine Iron deficiency anemia secondary to inadequate dietary iron intake Expected: 07/31/2024 (Approximate), Expires: 07/31/2025[facility] Healthcare Comment on above:Expected: 07/31/2024 (Approximate), Expires: 07/31/2025Start: 07-31-2024 End: 66-40-0391Zpmgjeuy [Mass/volume] in Serum or PlasmaFerritin Lab Routine Iron deficiency anemia secondary to inadequate dietary iron intake Expected: (Approximate), Expires: 07/31/2025[facility] HealthcareComment on above: Expected: 07/31/2024 (Approximate), Expires: 07/31/2025Start: 07-31-2024 End: 60-78-0690Onic + transferrin + TIBCIron + transferrin + TIBC Lab Routine Iron deficiency anemia secondary to inadequate dietary iron intake Expected: 07/31/2024 (Approximate), Expires: 07/31/2025[facility] HealthcareComment on above: Expected: 07/31/2024 (Approximate), Expires: 07/31/2025Start: 07-10-2024 End: 11-26-2132Urlrtou encounter lpkanufnr46/18/2024 4:30 PM EST Office Visit [facility] [address] [place] [address] Angel Luis Groves, GENERAL SUPERVISOR [address] [place] [address] NOMS TRIST[facility] FMStart: 06-05-2024 End: 43-64-9803Sjtmaej encounter ihmwrknjl39/13/2024 5:30 PM EST Office Visit [facility] [address] [place] [address] Angel Luis Groves, GENERAL SUPERVISOR [address] [place] [address] NOMS [facility] FMStart: 04-10-2024 End: 87-95-4731Kdtugtw encounter procedureNOALLIANCEHEALTH [facility] [place] [place] FMComment on above:Arrived Start: 50-07-2061Rioqkwfqe vaccinationInfluenza Vaccine (#1)[facility] Healthcare Start: 03-12-2024 End: 17-93-5114Oogulmo encounter pupiieaqj27/20/2024 3:30 PM EDT Office Visit [facility] [address] [place] [address] Angel Luis Groves, MARY JO [address] [place] [address] ArrivedNOMS CWM FMComment on above:ArrivedStart: 11-13-2023 End: 78-92-9685Graukds encounter zuzzgsjnp33/22/2024 4:45 PM EDT Office Visit [facility] [address] [place] [address] Shaikh Main MD [address] [place] [address] NOMScottie MONSON IMStart: 14-24-5430Tzjjgcprr vaccinationInfluenza Vaccine (#1)[facility] HealthcareStart: 69-03-1264Pwbvrfrbwaqbmx of varicella zoster vaccineZoster (Shingles) Vaccine (1 of 2)[facility] SystemStart: 47-61-5983Fdxaoscgy for malignant neoplasm of breastMammogramNOMS Healthcare Start: 14-23-4461Eusalkibi for malignant neoplasm of cervixNOMS HealthcareStart: 44-32-9096Xorddffqf for malignant neoplasm of cervixPap SmearNOMS Healthcare Start: 77-41-3598DMuB,Tdap and Td Vaccines (1 - Tdap)DTaP,Tdap and Td Vaccines (1 - Tdap)[facility] SystemStart: 68-79-9318Pfjtg BMI Follow Up PlanAdult BMI Follow Up PlanKettering Health Springfield SystemStart: 21-50-1101Myrvjqkhmy Screening Depression ScreeningKettering Health Springfield SystemStart: 90-67-5473Ksrqkjrus for malignant neoplasm of colonNOMS HealthcareStart: 29-80-0512Phjbcwhjn for malignant neoplasm of lungLung Cancer Screening Shared Decision MakingChristian HospitalStart: 03-56-4773Ttuebae CounselingTobacco CounselingMedina HospitalCBC W Auto Differential panel - BloodCBC and differential Lab Routine Iron deficiency anemia secondary to inadequate dietary iron intakeOrdered: 07/31/2024[facility] [employer] Work Phone: Comment on above:Ordered: 07/31/2024omprehensive metabolic 2000 panel - Serum or PlasmaRiverside Methodist HospitalDRUG TOX MONITORIGN 6 W/ CONF,URINEDRUG TOX MONITORIGN 6 W/ CONF,URINE Lab Routine Encounter for drug screening Ordered: 01/22/2025[facility] [employer] Work Phone: comment on above:Ordered: 01/22/2025Electromyography [facility] HospitalPatient referralPomerene Hospital Work Phone: Sjogrens syndrome-A extractable nuclear Ab [Units/volume] [facility] extractable nuclear Ab [Units/volume] in [facility] Immunizations Immunization DateImmunizationNotesCare ProviderFacilityNEGATED: Highlighted row has not occurred!09-15-6446aawvvflcs virus vaccine, unspecified formulation Segun HOLLOWAY [facility] [place] Payers DatePayer CategoryPayerPolicy [id number] Health [id number] Managed Care - POS [id number] Care HMO (unspecified)1.2.840.594736.1.13.693.2.7.3.501[id number] 2.16.840.1.969361.3.57[id number] 2.16.840.1.821039.3.579.2.92965-57-1100Wgsqbdb0536755 2..840.1.310624.3.579.2.35793-20-9989Zqxmqnw9993038 2..840.1.486431.3.579.2.91767-67-7133Dvipjsd2790954 2.16.840.1.579489.3.579.2.30114-64-3389Lctbklz6683578 2.840.1.007833.3.579.2.49419-78-9943Afdosfn2050345 2.840.1.402263.3.579.2.06858-03-1324Jhloxdd8544301 2.840.1.106748.3.579.2.61571-64-2455Iybpjqe9936278 2.840.1.526010.3.579.2.74449-21-3918Gpowcwm9742649 2.840.1.550610.3.579.2.04404-83-0521Qcubjgy17986211 2.840.1.089037.3.579.2.04203-78-1502Akmgpdg16226974 2.840.1.529048.3.579.2.90113-69-7200Vtwdpak25502259 2.840.1.662859.3.579.2.44992-24-2604Mmvdyra60376760 2.840.1.455879.3.579.2.48075-81-0237Ptotufg46322395 2.840.1.302787.3.579.2.47285-77-0523Csfimsj737036658 2.840.1.780662.3.579.2.956895-67-7372Uftljsj332340674 2.840.1.029801.3.579.2.333500-93-1499Ishfsuf58909846 2.840.1.965983.3.579.2.117600-31-2187Zymmzgg76700325 2.840.1.191253.3.579.2.838028-37-3505Zhmubss98502806 2.840.1.018991.3.579.2.516803-01-3439Anfyshp73029707 2.0.1.011052.3.579.2.390294-25-1376Lcnamrr43398672 2..1.251604.3.579.2.450331-70-1082Plxpzvg43114712 2..1.076311.3.579.2.029621-13-5758Letwmtf62875136 2..1.892494.3.579.2.379363-92-1141Sxcvkkf27088786 2..1.231720.3.579.2.776059-09-5682Sqcqhhr9322943 2..1.389043.3.579.2.197781-96-5333Ipvbzok9902857 2..1.138443.3.579.2.698787-41-8754Gaamuvn5552012 2..1.457220.3.579.2.235521-22-5984Kczdqnh6112731 2..1.359818.3.579.2.737458-90-3832Pgvblst5901779 2..1.009140.3.579.2.421859-69-4589Rpuoxsm5549486 2.0.1.677198.3.579.2.698573-23-4631Mizgcbk370162775 2.0.1.787383.3.579.2.48011-44-6965Hzcexgy942298956 2..840.1.472951.3.579.2.85546-33-3757Sqpctff789984258 2.16.840.1.884194.3.579.2.33414-39-1004Vjahtzz Health LkmxnebbmX586896660 2..840.1.080187.84ZkmxndtUdqsgqk05251575 2.840.1.837453.3.579.2.531 Social History DateTypeDetailFacilityUnknown if ever smokedNonorth [facility] Guruji Other Start: 09-03-2020 End: 06-10-0056Bxr Assigned At [facility] Hospitaltart: 06-07-2023 End: 17-49-7976Etxovqu smoking statusHeavy tobacco smoker (finding)[facility]vueTobacco smoking statusFormer smokeless tobacco user, quit more than 30 days agoGeneral Surgery BellevueStart: 07-04-2023 End: 82-71-2919Ajddktw smoking status NHISSmokes tobacco dailyNOMS Healthcare Start: 15-87-4452Jhusvyo of tobacco useCigarette SmokerNOMS HealthcareStart: 09-03-2020 End: 27-29-7206Thuipuevvb smoked current (pack per day) - Tfiuisec8CBSU HealthcareStart: 07-04-2023 End: 24-61-1865Ludbuzf use and exposureSmokeless tobacco non-userNOMS Healthcare Start: 08-14-2023 End: 42-89-0602Shsglzh intakeLifetime non-drinker (finding)NOMS HealthcareWithin the last year, [...] the time - these days [OSQ]To some extentNOCO Healthcare(I/We) worried whether (my/our) food would run out before (I/we) got money to buy more.Never trueNOMS HealthcareStart: 90-82-9250Gxjbwwn CommentThinking about quittingNOMS HealthcareStart: 82-83-3701Wftmwii Commentcaffeine: 3-4 cups per dayNOMS HealthcareStart: 34-98-5411Eir Assigned At BirthNot on fileNOMS HealthcareStart: 61-85-5658Zzr Assigned At [facility]ianFeSalem City HospitalHistory of tobacco usePassive smokerNOCO HealthcareStart: 01-22-2025 End: 55-58-7822Wjyrbjwqs beverage intakeEx-drinker (finding)[facility] Start: 90-39-8374IwpNxxikf (finding)[facility] SystemStart: 02-24-2025 End: 95-36-6139Yxckacwvj beverage intakeCurrent drinker of alcohol (finding) [facility] Goals DatePatient GoalDesired Activity/StatePersonal health goal Functional Status MxjqOudwykxfohVdvnvwYeccuwjd22-48-6204Cqqryjxjvfo anxiety disorder 7 item (JESSIKA-7)Christian HospitalQldwtnrwwq52-91-2661Jefbwdh Health Questionnaire 2 item (PHQ-2) [Reported]Christian HospitalWyqvjmoiaw51-33-2666PDN-0 quick depression assessment panel [Reported.PHQ]Christian HospitalIwlftwcxky37-80-8607Pkkxuqqhau StatusN/[facility] Digestive Tfljkn79-28-8570Otykvvltrr StatusN/AGeneral Surgery [place] Clinical Notes 08-30-2021 to 05-02-2025 Note Date & SqchOsoxEyggjeyc33-21-3699 Miscellaneous Notes* Telephone Encounter - Areli Gudino [...] to their preferred pharmacy. documented in this encounterMedina Hospital10-10-2025 Telephone encounter Note* Telephone Encounter - Areli Gudino CMA - 05/02/2025 1:01 PM EDT Patient called to say she is on Tolterodine for her OAB but is having worse incontinence. She has UDS scheduled in May but her PCP wants to see if she can be put on something else as the currentmed is the highest dose. Please advise. [facility]10-10-2025 Telephone encounter Note* Telephone Encounter - Jovon Asif MD - 05/02/2025 1:01 PM EDT Myrbetriq 50 milligrams once daily, dispense 30 tablets, 5 refills. [facility] [employer] Irprhn59-77-3859 Telephone encounter Note* Telephone Encounter - Areli Gudino CMA - 05/02/2025 1:01 PM EDT Called patient and sent in Myrbetriq to their preferred pharmacy. [facility] [employer] Jhuwxy21-61-0551 History of Present illness Narrative* Eunice Dias, PMHNP-BC - 04/03/2025 9:00 AM EDT Images from the original note were not included. HPI: Talia Rutherford is a 54 y.o. female with a history of Fibromyalgia, gastric bypass (2019), sleep apnea (does not wear CPAP), MDD, JESSIKA, PTSD, and Insomnia. Patient is here today for follow-up via telehealth. Location of patient: Home; located in [place] Location of provider: Office; located in [place], [place] Patient seen via: [employer] Telehealth; audio and video utilized Reason for [...] is recently got [facility] Rohan Waters [facility] on [facility] for counseling. She [...] Practitioner (Behavioral Health) Rohan Waters LPC as Automotive Brake Technician (Behavioral Health) PSYCHIATRIC REVIEW OF SYMPTOMS AND [...] she will need to follow-up with other psych nurse in the future due to medication [...] care as described above. documented in this encounterChristian HospitalUrjgftmfuq41-93-3884 History of Present illness Narrative* Margot Marsh DO - 04/02/2025 3:00 PM EDT SUBJECTIVE Chief Complaint: cystocele HPI Ms. Talia Rutherford is a , 54 y.o. female who is referred by Shelia Muniz DO for cystocele. The patient reports history of rectocele repair in 2021 at [facility]. She notes a bulge on a [...] pessary previously. Gynecology provider: Dr. Muniz. 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 [...] given by office. Patient was given a [employer] voucher to use, this is not to [...] diarrhea, fecal incontinence. She is SA. 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 [...] with second degree uterine prolapse (Primary) - [facility] - Urogynecology - [place], [place] - Measure post void residual 2. History of reconstructive repair of rectocele - [facility]ro[facility] - [place], [place] - Measure post void residual 3. Urge urinary incontinence - [facility] Uro[facility]necology - [place], [place] - Measure post void residual She [...] good candidate for minimally invasive hysterectomy with [place] tissue repair. We will discuss further at her next visit. documented in this encounterMedina Hospital09-02-2025 Evaluation note* Diagnosis Onset Date Resolution Status Admit Date Carpal tunnel syndrome of right wrist acuteSeptember 2024 8:29amCervical stenosis of spineacuteSeptember 2024 8:29amPiriformis syndrome of right sideacuteSeptember 2024 8:29am [facility] Work Phone: 1(390) 193-611509-02-2025 Evaluation note* Diagnosis Onset Date Resolution Status Admit Date Carpal tunnel syndrome of right wrist acuteSeptember 2024 8:29amCervical stenosis of spineacuteSeptember 2024 8:29amPiriformis syndrome of right sideacuteSeptember 2024 8:29amClass 1 obesity due to excess calories without serious comorbidity in adultacute April 30, 2025 4:13pmFibromyalgiaacuteOctober 2024 4:13pmGERD without esophagitisacuteOctober 2024 4:13pmIDA (iron deficiency anemia)acuteOctober 2024 4:13pmNicotine dependenceacuteOctober 2024 4:13pm [facility] Work Phone: 1(409) 731-859409-02-2025 Evaluation note* Diagnosis Onset Date Resolution Status [...] 4:13pmAbdominal painacuteOctober 2024 2:21pm BloatingacuteOctober 2024 2:21pm [facility] Work Phone: 1(934) 428-741508-05-2025 History of Present illness Narrative* Pascale Arana [...] for last several weeks, she has seen psych nurse, meds changed and she is now [...] of the risks of continued smoking: stroke, AR, all forms of cancer, lung disease, and [...] of the risks of continued smoking: stroke, AR, all forms of cancer, lung disease, and . Options for quitting smoking include: cold turkey, hypnosis, acupuncture, nicotine replacement meds(gum, lozenges, and patches), Buproprion, and Varenicline. At this time pt is encouraged to evaluate their goals for wanting to quit smoking, and reach out toprovider when ready to start this process documented in this [facility]08-05-2025 Instructions* Patient Instructions* Pascale Arana NP - 02/25/2025 11:30 AM EDT Off work RTW date 03/25/25 documented in this [facility]08-04-2025 History of Present illness Narrative* Eunice [...] Sheis working [facility] [place] [facility] [place] get [place]ural in [...] care as described above. documented in this encounterChristian HospitalXuxuugdxxy62-89-7524 History of Present illness Narrative* Shelia Muniz [...] if mesh was utilized documented in this encounterMedina Hospital07-02-2025 History of Present illness Narrative* Eunice [...] siblings and him having another family in [place]. She describes her mood as sad, anxious, [...] who also lives there. 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 Has been with [employer] for 15 years. She states sheis currently [...] the local ER or call Suicide Hotline (733) for any psychosis, suicidal or homicidal ideation, or with any risk of harm to self or others. Patient was seen Face to Face, Total time spent with patient was 60 minutes, which includes reviewing chart documents, previous notes/records, counseling and discussion with patient and/or coordination of care as described above. documented in this [facility]06-16-2025 Telephone encounter Note* Telephone Encounter - Pascale Arana NP - 01/06/2025 6:12 PM EDT Pt states she was not contacted about her iron infusion can we check with TB about this [place] Christian HospitalSqyyycghvd56-67-0013 Miscellaneous Notes* Telephone Encounter - Pascale Arana NP - 01/06/2025 6:12 PM EDT Pt states she was not contacted about her iron infusion can we check with TB about this [place] documented in this [facility]06-16-2025 History of Present illness Narrative* Pascale Arana [...] 7=21 and PHQ 9=25 * Pascale Arana, GENERAL SUPERVISOR - 01/06/2025 4:30 PM EDT Images from [...] of the risks of continued smoking: stroke, AR, all forms of cancer, lung disease, and [...] of the risks of continued smoking: stroke, AR, all forms of cancer, lung disease, and [...] possible Current med: pantoprazole documented in this encounterChristian HospitalNnsrxduosd81-55-5635 Instructions* Patient Instructions* Pascale Arana NP - 01/06/2025 4:30 PM EDT Discontinue the citalopram Start lamotrigine 1 pill at night for 2 weeks, then increase to 1 pill twice a day after that documented in this [facility]05-28-2025 Telephone encounter Note* Telephone Encounter - LIZANDRO PICKARD - 12/18/2024 10:48 AM EDT [place]. This is Steve at [facility] calling in regards to 1 of Pascale giraldo's patients. Her name is Talia Gipson, and we need to clarify some orders with her. She is supposed to be coming later today. Give us a call back as soon as possible. [phone], extension [phone],thank you. [facility] Kfcwahrmya56-23-9997 Miscellaneous Notes* Telephone Encounter - LIZANDRO PICKARD - 12/18/2024 10:48 AM EDT [place]. This is Steve at [facility] calling in regards to 1 of Pascale giraldo's patients. Her name is Talia Gipson, and we need to clarify some orders with her. She is supposed to be coming later today. Give us a call back as soon as possible. [phone], extension [phone],thank you. documented in this [facility]04-30-2025 History of Present illness Narrative* Pascale Arana [...] they will approve Infed, I did contact [facility] 11/19/24 they can order it, [...] nursing note reviewed. Exam conducted with a project accountant present. Constitutional: General: She is not in [...] 37.5 MG tablet documented in this [facility]04-30-2025 Instructions* Patient Instructions* Pascale Arana NP - 11/20/2024 3:20 PM EDT Citalopram: currently on 40mg daily, cut pill in half so only at 20mg dose Stop the lanxoprazole, and will trial pantoprazole 40mg daily GERD and if not better at fu appt we will refer to GI We will call about PAP smear results documented in this [facility]04-02-2025 History of Present illness Narrative* Pascale Arana [...] of the risks of continued smoking: stroke, AR, all forms of cancer, lung disease, and [...] of the risks of continued smoking: stroke, AR, all forms of cancer, lung disease, and [...] Pt meets qualifications of [facility] 4731-05-27 for weight loss. BMI>30 [...] Starting weight was 206 documented in this encounterChristian HospitalYociiuhdgn75-72-0108 History of Present illness Narrative* Pascale Arana [...] of the risks of continued smoking: stroke, AR, all forms of cancer, lung disease, and [...] of the risks of continued smoking: stroke, AR, all forms of cancer, lung disease, and [...] Pt meets qualifications of [facility] 4731-05-27 for weight loss. BMI>30 [...] weight 200 lbs documented in this [facility]03-12-2025 Instructions* Patient Instructions* Pascale Arana NP - 10/02/2024 5:00 PM EDT Check labs Mammogram: [facility] documented in this [facility]02-12-2025 Instructions* Patient Instructions* Angel Luis Groves NP - 09/04/2024 5:00 PM EST Keep up the good work!!! documented in this [facility]01-22-2025 Telephone encounter Note* Telephone Encounter - Nupur Oneal - 08/14/2024 11:46 AM EST Patient said her dose was increased and now she is out of this medication. Can you please refill. ANAYELI Christian HospitalTebtilltzj53-99-2607 Miscellaneous Notes* Telephone Encounter - Nupur Oneal - 08/14/2024 11:46 AM EST Patient said her dose was increased and now she is out of this medication. Can you please refill. ANAYELI documented in this encounterChristian HospitalIjebbbjidi43-06-6243 History of Present illness Narrative* Pascale Arana [...] of the risks of continued smoking: stroke, AR, all forms of cancer, lung disease, and [...] of the risks of continued smoking: stroke, AR, all forms of cancer, lung disease, and [...] Orders SUPERFICIAL WOUND (HTRX) documented in this encounterChristian HospitalTbzaywlodw86-23-0102 Instructions* Patient Instructions* Pascale Arana NP - 08/12/2024 4:00 PM EST Z pack, finish this Fluids, rest Cont layla and we will add flonase nasal spray Warm compress to affected area, will treat based on culture report documented in this encounterChristian HospitalEosnlvmjxr22-16-3314 History of Present illness Narrative* Angel Luis [...] 37.5 MG tablet documented in this [facility]01-08-2025 Instructions* Patient Instructions* Angel Luis Groves NP - 07/31/2024 3:00 PM EST Notify office with any symptoms of chest pain, dyspnea, heart palpitations, or any anxiety symptoms. F/U in 4 weeks to document weight loss. Increase physical activity as tolerated, and lower caloricintake to 1600 calories daily if no contraindications. documented in this [facility]01-01-2025 History of Present illness Narrative* Angel Luis [...] into month two. Pt meets qualifications of [facility] 4731-05-27 for weight loss. BMI>30 [...] into month two. Pt meets qualifications of [facility] 4731-05-27 for weight loss. BMI>30 or >27 with comorbid conditions. Blood pressure WNL. Notify office with any symptoms of chest pain, dyspnea, heart palpitations, or any anxiety symptoms. F/U in 4 weeks to document weight loss. Increase physical activity as tolerated, and lower caloric intake to 1600 calories daily if no contraindications. documented in this [facility]11-11-2024 Telephone encounter Note* Telephone Encounter - Mar Powers MA - 06/03/2024 9:10 AM EST Pt takes the 60mg in morning and 30 mg in the afternoon, so both. Christian HospitalDkwzwaszwj25-68-6061 Miscellaneous Notes* Telephone Encounter - Mar Powers MA - 06/03/2024 9:10 AM EST Pt takes the 60mg in morning and 30 mg in the afternoon, so both. * Telephone Encounter - Nupur Oneal - 06/03/2024 8:50 AM EST Patient is asking for a 90 day supply. Patient said 60 mg were denied. documented in this [facility]11-11-2024 Telephone encounter Note* Telephone Encounter - Nupur Oneal - 06/03/2024 8:50 AM EST Patient is asking for a 90 day supply. Patient said 60 mg were denied. [facility] Xizmicuhjd87-35-3927 History of Present illness Narrative* Angel Luis [...] pain has since resolved. documented in this encounterChristian HospitalIwzamdgihq35-87-7149 History of Present illness Narrative* Angel Luis [...] ABDOMINAL PAIN. PT SCHEDULED TO SEE [facility] [place] ON 03/18 AT 1500. ). HPI IS here today for one week follow-up for constipation. Prescrivbed lacutlose at last visit-did not shredder picker. Went on vacation to in [facility] [place] in [place] for the weekend and had X3 BM's. Denies blood in stool. States she has been stressed recentlty and feels being away heloped her relax and she was finally able to pass BM. Sees GI in [place] on Sunday 03/18 @ 3pm. Still has [...] with GI next week. documented in this encounterChristian HospitalNerxdiorxd16-26-9298 Instructions* Patient Instructions* Angel Luis Groves NP - 03/12/2024 3:30 PM EDT Referral sent to Rheumatology- Dr. Muller in [place], [place]- they will call you! Have mammogram completed. Call if you need anything! documented in this encounterChristian HospitalVaohexwcww62-09-7287 NoteChief Complaint consultation for colonoscopy HPI Staff [...] fibromyalgia, referred for severe anemia, admitted to [facility] in January with hb of 5; [...] mg Cap-DR, 30 mg= (more content not included)...[facility]beighComment on above:Result Comment: Electronically Signed By: AMEI WELLER, Segun Qureshi.meena\Date and Time Signed: 06/07/23 17:17 [id number] Evaluation + Plan note Diagnostic Tests Pending [...] Palpitations -Resolved, likely exacerbated (more content not included)...[facility]09-15-2023 NotePatient here for 2 mo follow up [...] Systems All other systems reviewed and are negative.[facility] 02-08-2023 NoteCardiovascular Medicine [facility] SUBJECTIVE Chief Complaint Patient presents with Establish [...] about 6 weeks (around 03/22/2023). Carol Webb APRN-[facility] MedicineFair[facility]11-08-2022 Note PROCEDURE: XR FOOT LT MIN 3 [...] Electronically authenticated by: TAMIKO NETTLES Date: 2022-05-31 20:30[facility]10-19-2022 NotePROCEDURE: XR FOOT LT MIN 3 VIEWS [...] Electronically authenticated by: ELLIOT JOSE Date: 2022-05-11 16:14[facility]09-27-2022 NotePROCEDURE: XR FOOT LT MIN 3 VIEWS [...] Electronically authenticated by: TAMIKO NETTLES Date: 2022-04-19 18:16[facility]09-07-2022 NotePROCEDURE: XR FOOT LT MIN 3 VIEWS [...] Electronically authenticated by: TAMIKO NETTLES Date: 2022-03-30 06:41[facility]08-19-2022 NotePROCEDURE: XR FOOT LT MIN 3 VIEWS [...] Electronically authenticated by: ELLIOT JOSE Date: 2022-03-11 08:26[facility]08-19-2022 NotePROCEDURE: XR FOOT LT 2V HISTORY: Pain COMPARISON: XR foot left 02/09/2022 FINDINGS: BONES:Multiple intraoperative images demonstrate mechanical fusion of the second and third tarsal-metatarsal joints. SOFT TISSUES:Expected intraoperative findings. EFFUSION:None visible. OTHER: Negative. IMPRESSION: 1. Mechanical fusion of second and third tarsal-metatarsal joints. Electronically authenticated by: ELLIOT JOSE Date: 2022-03-11 07:55[facility]07-21-2022 NotePROCEDURE: XR FOOT LT MIN 3 VIEWS COMPARISON: 12/15/2020 HISTORY: Pain FINDINGS: BONES:No acute fracture or dislocation. Stable moderate degenerative changes most significant at the tarsometatarsal joints. Moderate plantar enthesopathic spurring of the calcaneus SOFT TISSUES:Negative. No visible soft tissue swelling. EFFUSION:None visible. OTHER: Negative. IMPRESSION: Stable moderate degenerative changes Electronically authenticated by: TAMIKO NETTLES Date: 2022-02-10 07:37[facility]02-07-2022 Evaluation note* Encounter Date Diagnosis Assessment Notes [...] care instructions given in writting by [facility] Care At Home document [email or web address] Other Evaluation note* Diagnosis Bipolar disorder with severe depression (CMS/HCC) documented in this encounter [facility] HealthcareEvaluation noteNo assessment information availableMary [facility]an [facility]tr Work Phone: Evaluation note* Diagnosis [...] Primary Screening for diabetes mellitus Seizure-like activity ([facility]) Fluid level behind tympanic membrane [...] in full remission, most recent episode depressed ([facility]) Psychophysiological insomnia Persistent disorder of initiating or maintaining sleep B12 deficiency Fibromyalgia Unspecified myalgia and myositis Screening mammogram for breast cancer Bipolar disorder, current episode depressed, severe, without psychotic features ([facility]) Psychophysiological insomnia Persistent disorder of initiating or maintaining sleep Fibromyalgia Unspecified myalgia and myositis Iron deficiency anemia secondary to inadequate dietary iron intake B12 deficiency B12 deficiency- Primary Bipolar disorder, current episode depressed, severe, without psychotic features ([facility]) Psychophysiological insomnia Persistent disorder of [...] gastric bypass Bipolar disorder with severe depression ([facility]) Encounter for screening mammogram for breast cancer- Primary Screening for diabetes mellitus Seizure-like activity ([facility]) Fluid level behind tympanic membrane [...] in full remission, most recent episode depressed ([facility]) Psychophysiological insomnia Persistent disorder of [...] gastric bypass Bipolar disorder with severe depression ([facility]) Encounter for screening mammogram for breast cancer- Primary Screening for diabetes mellitus Seizure-like activity ([facility]) Fluid level behind tympanic membrane of [...] in full remission, most recent episode depressed ([facility]) Psychophysiological insomnia Persistent disorder of initiating or maintaining sleep B12 deficiency Fibromyalgia Unspecified myalgia and myositis Screening mammogram for breast cancer Bipolar disorder, current episode depressed, severe, without psychotic features ([facility]) Psychophysiological insomnia Persistent disorder of initiating or maintaining sleep Fibromyalgia Unspecified myalgia and myositis Iron deficiency anemia secondary to inadequate dietary iron intake B12 deficiency B12 deficiency- Primary Bipolar disorder, current episode depressed, severe, without psychotic features ([facility]) Psychophysiological insomnia Persistent disorder of initiating [...] gastric bypass Bipolar disorder with severe depression ([facility]) Encounter for screening mammogram for breast [...] Primary Screening for diabetes mellitus Seizure-like activity ([facility]) Fluid level behind tympanic membrane of [...] in full remission, most recent episode depressed ([facility]) Psychophysiological insomnia Persistent disorder of initiating [...] current episode depressed, severe, without psychotic features ([facility]) Psychophysiological insomnia Persistent disorder of initiating [...] Primary Screening for diabetes mellitus Seizure-like activity ([facility]) Fluid level behind tympanic membrane [...] deficiency BMI 32.0-32.9,adult documented in this encounter [facility] HealthcareEvaluation note* Diagnosis Breast screening- Primary [...] Primary Screening for diabetes mellitus Seizure-like activity ([facility]) Fluid level behind tympanic membrane [...] in full remission, most recent episode depressed ([facility]) Psychophysiological insomnia Persistent disorder of initiating or maintaining sleep B12 deficiency Fibromyalgia Unspecified myalgia and myositis Screening mammogram for breast cancer Bipolar disorder with severe depression ([facility])- Primary Psychophysiological insomnia Persistent disorder of [...] gastric bypass Bipolar disorder with severe depression ([facility]) Encounter for screening mammogram for breast cancer- Primary Screening for diabetes mellitus Seizure-like activity ([facility]) Fluid level behind tympanic membrane [...] for diabetes mellitus Seizure-like activity ([facility]) Fluid level behind tympanic membrane [...] of tympanic membranes documented in this encounter [facility] HealthcareEvaluation note* Diagnosis Cystocele with second degree uterine prolapse- Primary History of reconstructive repair of rectocele Urge urinary incontinence Urge incontinence Incomplete emptying of bladder Incomplete bladder emptying Atrophic vaginitis Postmenopausal atrophic vaginitis [facility]* Diagnosis Breast screening- Primary Breast [...] Cervical stenosis of spine acuteSeptember 2024 8:29am [facility] Work Phone: Evaluation note* Diagnosis Breast [...] incontinence Urge incontinence documented [facility]* Diagnosis Breast screening- Primary [...] Description Date Medical History anxiety Medical HistoryGERD Nebo.ru Other Hospital course Narrative No data available for this section General Surgery [facility] Discharge instructions No data available for this section General Surgery [employer] Instructions* Attachments The following attachments cannot be sent through Care Everywhere. * Pelvic floor muscle exercises (Andorran) documented in this encounterProMediaLink SystemInstructionsNot on file documented in this encounterSpringfield HospitalMediaLink SystemInstructionsNot on file documented in this encounterSpringfield HospitalMediaLink SystemInstructionsNot on file documented in this encounterSpringfield HospitalMediaLink SystemProgress note No data available for this section General Surgery [facility] Reason for referral (narrative)* Consultation (Routine) - Pending ReviewSpecialtyDiagnoses / ProceduresReferred By ContactReferred To ContactRheumatology Diagnoses Fibromyalgia Procedures NM OFFICE/OUTPATIENT NEW HIGH [facility] 60 MINUTES Angel Luis Groves NP [address] [place] [address] Tyson Collazo MD [address] [place] [address] Referral IDStatusReasonStart DateExpiration DateVisits RequestedVisits [id number] Review Specialty Services Required / Scheduling Instructions Please include OV note from today And labs from 07/28/2023 CHERYL MonteroRerochelle for referral (narrative)No reason for referral information availablePomerene Hospital Work Phone: Reason for visit Narrative* Consultation (Routine) - ClosedSpecialtyDiagnoses / ProceduresReferred By ContactReferred To Contact Urogynecology / Gynecology Diagnoses Cystocele with second degree uterine prolapse History of reconstructive repair of rectocele Urge urinary incontinence Shelia Muniz DO [address] [place] [address] Phone: tel: fax: Jovon Asif MD [address], [address] [address] Phone: tel: fax: Referral IDStatusReasonStart DateExpiration DateVisits RequestedVisits [id number] Specialty Services Required / [facility] Summary Purpose Family History No Family [...] and content) DATE CREATED AUTHOR 11/16/2018 [facility] DATE CREATED AUTHOR AUTHOR'S ORGANIZ ATION 06/05/2022 [facility] DATE CREATED AUTHOR AUTHOR'S ORGANIZ ATION 04/09/2023 [facility] DATE CREATED AUTHOR AUTHOR'S ORGANIZ ATION 03/20/2024 [facility] DATE CREATED AUTHOR AUTHOR'S ORGANIZ ATION 2025 [facility] DATE CREATED AUTHOR AUTHOR'S ORGANIZ ATION 04/11/2025 [facility] DATE CREATED AUTHOR AUTHOR'S ORGANIZ ATION 05/04/2025 [facility] DATE CREATED AUTHOR AUTHOR'S ORGANIZ ATION 05/10/2025 [facility] REASON FOR VISIT (unrecogniz ed section and content) ReasonCommentsMed RefillReasonOnset DateCommentsMed Uqhmvi2706/03/2024easonOnset DateCommentsMed [id number]-upCONSTIPATION, PT HAS HAD THREE BM'S SINCE LAST VISIT. PT IS STILL HAVING ABDOMINAL PAIN. PT SCHEDULED TO SEE GUDELIA GONZALEZ ON 03/18 AT 1500.ReasonCommentsFollow-upReasonOnset DateComments Med Svcxwl1307/25/2024ReasonCommentsFollow-up3 mHot flashesReasonCommentsSore ThroatReasonOnset DateCommentsMed Tcfniq5708/14/2024ReasonCommentsWeight Check ReasonOnset DateCommentsMed Ytfbad7609/06/2024ReasonOnset DateCommentsMed Refill 10/23/2024ReasonOnset DateCommentsMed Wpvhmw0311/18/2024ReasonCommentsWeight Check ReasonCommentsPsychiatric EvaluationSpecialtyDiagnoses / ProceduresReferred By ContactReferred To ContactBehavioral Health Diagnoses Bipolar disorder with severe depression (HCC) Procedures NM OFFICE/OUTPATIENT NEW HIGH [facility] 60 MINUTES Pascale Arana, MARY JO [address] [place] [address] Phone: tel: fax: Eunice Dias, PMHNP-BC [address] [facility] [address] [place] [address] Phone: tel: fax: Referral IDStatusReasonStart DateExpiration DateVisits RequestedVisits [id number] Specialty Services Required [id number] PatientNew Patient presents for evaluation of a [...] Date Molina De Anda MD [address] [place] [address] PCP - Generalmily Medicine02/21/24 Angel Luis Groves NP [address] [place] [address] Nurse PractitionerFainly Medicine02/21/24Team MemberRelationshipSpecialtyStart DateEnd Date Molina De Anda MD [address] [place] [address] PCP - Generalmily Medicine02/21/24 Angel Luis Groves NP [address] [place] [address] Nurse Pract[facility]erAd[facility] Gordon02/21/24Team MemberRelationshipSpecialtyStart DateEnd Date Molina De Anda MD [address] [place] [address] PCP - GeneralAdventhealth Gordon02/21/24 Angel Luis Groves NP [address] [place] [address] Nurse PractitionerAd[facility]02/21/24Team MemberRelationshipSpecialtyStart DateEnd Date Molina De Anda MD [address] [place] [address] PCP - GeneralAdventhealth Gordon02/21/24 Angel Luis Groves NP [address] [place] [address] Nurse PractitionerAd[facility]02/21/24Team MemberRelationshipSpecialtyStart DateEnd Date Molina De Anda MD [address] [place] [address] PCP - GeneralAd[facility]health [facility]02/21/24 Angel Luis Groves NP [address] [place] [address] Nurse PractitionerAd[facility]02/21/24Team MemberRelationshipSpecialtyStart DateEnd Date Molina De Anda MD [address] [place] [address] PCP - Generalmily Medicine02/21/24 Angel Luis Groves NP [address] [place] [address] Nurse PractitionerAd[facility]02/21/24Team MemberRelationshipSpecialtyStart DateEnd Date Molina De Anda MD [address] [place] [address] PCP - GeneralAdventhealth Gordon02/21/24 Angel Luis Groves NP [address] [place] [address] Nurse PractitionerAd[facility]02/21/24Team MemberRelationshipSpecialtyStart DateEnd Date Molina De Anda MD [address] [place] [address] PCP - Generalmi Medicine02/21/24 Angel Luis Groves, MARY JO [address] [place] [address] Nurse [facility] Medicine02/21/24Team MemberRelationshipSpecialtyStart DateEnd Date Molina De Anda MD [address] [place] [address] PCP - Generalmi Medicine02/21/24 Angel Luis Groves NP [address] [place] [address] Nurse PractitionerAd[facility]02/21/24Team MemberRelationshipSpecialtyStart DateEnd Date Molina De Anda MD [address] [place] [address] PCP - GeneralAd[facility]health [facility]02/21/24 Angel Luis Groves NP [address] [place] [address] Nurse PractitionerAd[facility]02/21/24Team MemberRelationshipSpecialtyStart DateEnd Date Molina De Anda MD [address] [place] [address] PCP - [facility]02/21/24 Angel Luis Groves NP [address] [place] [address] Nurse PractitionerAd[facility]02/21/24Team MemberRelationshipSpecialtyStart DateEnd Date Molina De Anda MD [address] [place] [address] PCP - GeneralAd[facility]health [facility]02/21/24 Angel Luis Groves NP [address] [place] [address] Nurse PractitionerAd[facility]02/21/24Team MemberRelationshipSpecialtyStart DateEnd Date Molina De Anda MD [address] [place] [address] PCP - Generalmily Medicine02/21/24 Angel Luis Groves NP [address] [place] [address] Nurse PractitionerF[facility] Medicine02/21/24Team MemberRelationshipSpecialtyStart DateEnd Date Molina De Anda MD [address] [place] [address] PCP - GeneralAd[facility]health [facility]02/21/24 Angel Luis Groves, MARY JO [address] [place] [address] Nurse PractitionerAd[facility]02/21/24Team MemberRelationshipSpecialtyStart DateEnd Date Molina De Anda MD [address] [place] [address] PCP - Generalmi Medicine02/21/24 Angel Luis Groves, MARY JO [address] [place] [address] Nurse PractitionerF[facility] Medicine02/21/24Team MemberRelationshipSpecialtyStart DateEnd Date Molina De Anda MD [address] [place] [address] PCP - Generalmi Medicine02/21/24 Angel Luis Groves NP [address] [place] [address] Nurse PractitionerAd[facility]02/21/24Team MemberRelationshipSpecialtyStart DateEnd Date Molina De Anda MD [address] [place] [address] PCP - GeneralAd[facility]health [facility]02/21/24 Angel Luis Groves NP [address] [place] [address] Nurse PractitionerAd[facility]02/21/24Team MemberRelationshipSpecialtyStart DateEnd Date Molina De Anda MD [address] [place] [address] PCP - [facility]02/21/24 Angel Luis Groves NP [address] [place] [address] Nurse PractitionerAd[facility]02/21/24Team MemberRelationshipSpecialtyStart DateEnd Date Molina De Anda MD [address] [place] [address] PCP - GeneralAd[facility]health [facility]02/21/24 Angel Luis Groves NP [address] [place] [address] Nurse PractitionerAd[facility]02/21/24Team MemberRelationshipSpecialtyStart DateEnd Date Molina De Anda MD [address] [place] [address] PCP - [facility]02/21/24 Angel Luis Groves NP [address] [place] [address] Nurse PractitionerAd[facility]02/21/24Team MemberRelationshipSpecialtyStart DateEnd Date Molina De Anda MD [address] [place] [address] PCP - [facility]02/21/24 Angel Luis Groves NP [address] [place] [address] Nurse [facility]02/21/24Team MemberRelationshipSpecialtyStart DateEnd Date Molina De Anda MD [address] [place] [address] PCP - [facility]02/21/24 Angel Luis Groves NP [address] [place] [address] Nurse [facility]02/21/24Team MemberRelationshipSpecialtyStart DateEnd Date Molina De Anda MD [address] [place] [address] PCP - [facility]02/21/24 Angel Luis Groves NP [address] [place] [address] Nurse Practitionermily Medicine02/21/24Team MemberRelationshipSpecialtyStart DateEnd Date Molina De Anda MD [address] [place] [address] PCP - Generalmi Medicine02/21/24 Angel Luis Groves NP [address] [place] [address] Nurse Pract[facility]erAd[facility]02/21/24Team MemberRelationshipSpecialtyStart DateEnd Date Molina De Anda MD [address] [place] [address] PCP - GeneralAd[facility]health [facility]02/21/24 Angel Luis Groves NP [address] [place] [address] Nurse Pract[facility]Ad[facility]02/21/24Team MemberRelationshipSpecialtyStart DateEnd Date Molina De Anda MD [address] [place] [address] PCP - GeneralF[facility] Medicine02/21/24 Angel Luis Groves, MARY JO [address] [place] [address] Nurse Pract[facility]Ad[facility]02/21/24Team MemberRelationshipSpecialtyStart DateEnd Date Molina De Anda MD [address] [place] [address] PCP - Generalmi Medicine02/21/24 Angel Luis Groves NP [address] [place] [address] Nurse Pract[facility]erAd[facility]02/21/24Team MemberRelationshipSpecialtyStart DateEnd Date Molina De Anda MD [address] [place] [address] PCP - [facility]02/21/24 Angel Luis Groves NP [address] [place] [address] Nurse PractitionerAd[facility]02/21/24Team MemberRelationshipSpecialtyStart DateEnd Date Molina De Anda MD [address] [place] [address] PCP - [facility]02/21/24 Angel Luis Groves NP [address] [place] [address] Nurse Pract[facility]Ad[facility]02/21/24Team MemberRelationshipSpecialtyStart DateEnd Date Molina De Anda MD [address] [place] [address] PCP - [facility]02/21/24 Angel Luis Groves NP [address] [place] [address] Nurse [facility]02/21/24Team MemberRelationshipSpecialtyStart DateEnd Date Molina De Anda MD [address] [place] [address] PCP - [facility]02/21/24 Angel Luis Groves NP [address] [place] [address] Nurse Pract[facility]Ad[facility]02/21/24Team MemberRelationshipSpecialtyStart DateEnd Date Molina De Anda MD [address] [place] [address] PCP - [facility]02/21/24 Angel Luis Groves NP [address] [place] [address] Nurse Pract[facility]Ad[facility]02/21/24Team MemberRelationshipSpecialtyStart DateEnd Date Molina De Anda MD [address] [place] [address] PCP - [facility]02/21/24 Angel Luis Groves NP [address] [place] [address] Nurse Pract[facility]erAd[facility]02/21/24Team MemberRelationshipSpecialtyStart DateEnd Date Molina De Anda MD [address] [place] [address] PCP - [facility]02/21/24 Angel Luis Groves NP [address] [place] [address] Nurse Pract[facility]Ad[facility]02/21/24Team MemberRelationshipSpecialtyStart DateEnd Date Molina De Anda MD [address] [place] [address] PCP - GeneralFamily Medicine02/21/24 Angel Luis Groves NP [address] [place] [address] Nurse [facility] Medicine02/21/24Team MemberRelationshipSpecialtyStart DateEnd Date Molina De Anda MD [address] [place] [address] PCP - Generalmi Medicine02/21/24 Angel Luis Groves NP [address] [place] [address] Nurse Pract[facility]02/21/24Team MemberRelationshipSpecialtyStart DateEnd Date Molina De Anda MD [address] [place] [address] PCP - Generalmi Medicine02/21/24 Angel Luis Groves NP [address] [place] [address] Nurse [facility] Medicine02/21/24Team MemberRelationshipSpecialtyStart DateEnd Date Molina De Anda MD [address] [place] [address] PCP - GeneralF[facility]ingham [facility] Medicine02/21/24 Angel Luis Groves NP [address] [place] [address] Nurse Pract[facility] Medicine02/21/24Team MemberRelationshipSpecialtyStart DateEnd Date Molina De Anda MD [address] [place] [address] PCP - [facility]02/21/24 Angel Luis Groves NP [address] [place] [address] Nurse Pract[facility]Ad[facility]02/21/24Team MemberRelationshipSpecialtyStart DateEnd Date Molina De Anda MD [address] [place] [address] PCP - [facility]02/21/24 Angel Luis Groves NP [address] [place] [address] Nurse Pract[facility]erAd[facility]02/21/24 [facility] [address] [email or web address] [address] [place] [address] Nurse [facility]01/22/25Te MemberRelationshipSpecialtyStart DateEnd Date Molina De Anda MD [address] [place] [address] PCP [facility]02/21/24 Angel Luis Groves NP [address] [place] [address] Nurse Pract[facility]Ad[facility]02/21/24 Eunice Dias [facility] [address] [facility] [[email or web address] [address] [place] [address] Nurse [facility]01/22/25Team MemberRelationshipSpecialtyStart DateEnd Date Molina De Anda MD [address] [place] [address] PCP - GeneralFamily Medicine02/21/24 Angel Luis Groves, MARY JO [address] [place] [address] Nurse [facility]02/21/24 [facility] [address] [place] [address] [place] [address] Nurse [facility]01/22/25Team MemberRelationshipSpecialtyStart DateEnd Date No Pcp, [place] [address] PCP - GeneralFamily Medicine11/21/18Team MemberRelationshipSpecialtyStart DateEnd Date Molina De Anda MD [address] [place] [address] PCP - [facility]Gr[facility]02/21/24 Angel Luis Groves, MARY JO [address] [place] [address] Nurse Pract[facility]Ad[facility]02/21/24 [facility] [address] [facility] [[email or web address] [address] [place] [address] Nurse [facility]01/22/25Team MemberRelationshipSpecialtyStart DateEnd Date Molina De Anda MD [address] [place] [address] PCP - [facility]02/21/24 Angel Luis Groves NP [address] [place] [address] Nurse Pract[facility]02/21/24 Eunice Dias [facility] [address] [facility] [address] [place] [address] Nurse [facility]01/22/25Te MemberRelationshipSpecialtyStart DateEnd Date Molina De Anda MD [address] [place] [address] PCP - [facility]02/21/24 Angel Luis Groves NP [address] [place] [address] Nurse Pract[facility]Ad[facility]02/21/24 Eunice Dias [facility] [address] [facility] [address] [place] [address] Nurse [facility]01/22/25Te MemberRelationshipSpecialtyStart DateEnd Date Molina De Anda MD [address] [place] [address] PCP - [facility]02/21/24 Angel Luis Groves NP [address] [place] [address] Nurse Pract[facility]Ad[facility]02/21/24 Eunice Dias [facility] [address] [facility] [[email or web address] [address] [place] [address] Nurse PractitionerBehavioral Health01/22/25Team MemberRelationshipSpecialtyStart DateEnd Date Molina De Anda MD [address] [place] [address] PCP - GeneralFamily Medicine02/21/24 Angel Luis Groves, MARY JO [address] [place] [address] Nurse Practitionermily Medicine02/21/24 [facility] [address] [place] [address] [place] [address] Nurse [facility]War[facility]01/22/25Team MemberRelationshipSpecialtyStart DateEnd Date No Pcp, [place] [address] PCP - GeneralFamily Medicine11/21/18Team MemberRelationshipSpecialtyStart DateEnd Date Molina De Anda MD [address] [place] [address] PCP - GeneralFamily Medicine02/21/24 Angel Luis Groves, MARY JO [address] [place] [address] Nurse PractitionerGr[facility] Hospitally Medicine02/21/24 [facility] [address] [facility] [[email or web address] [address] [place] [address] Nurse Practitionerhavioral [facility]01/22/25Team MemberRelationshipSpecialtyStart DateEnd Date Molina De Anda MD [address] [place] [address] PCP - GeneralFamily Medicine02/21/24 Angel Luis Groves, MARY JO [address] [place] [address] Nurse PractitionerAd[facility]02/21/24 Eunice Dias [facility] [address] [facility] [[email or web address] [address] [place] [address] Nurse Pract[facility]War[facility]01/22/25Te MemberRelationshipSpecialtyStart DateEnd Date Molina De Anda MD [address] [place] [address] PCP - [facility]02/21/24 Angel Luis Groves, MARY JO [address] [place] [address] Nurse PractitionerAd[facility]02/21/24 Eunice Dias [facility] [address] [facility] [[email or web address] [address] [place] [address] Nurse [facility]01/22/25Te MemberRelationshipSpecialtyStart DateEnd Date Molina De Anda MD [address] [place] [address] PCP - GeneralAdventhealth Gordon02/21/24 Angel Luis Groves, MARY JO [address] [place] [id number] Nurse PractitionerAdventhealth Gordon02/21/24 Eunice Dias, [facility] [address] [facility] [[email or web address] [address] [place] [address] Nurse PractitionerBehavioral Health01/22/25 Rohan Waters LPC Social WorkerBehavioral [facility]03/06/25 Team Status: Active Member Role Status Dates Pascale Arana Primary Care Provider Active Team Status: Inactive Member Role Status Dates Shun Arshad MD Attending Provider Active Star t: March 25, 2025 End: March 25, 2025Lisa Bang [facility] Care ProviderActiveStart: March 25, 2025 End: March 25, 2025Team MemberRelationshipSpecialtyStart DateEnd Date Molina De Anda MD PCP - GeneralFamily Medicine02/21/24 Angel Luis Groves NP Nurse Pract[facility]Gr[facility]02/21/24 Eunice Dias [facility] [address] [facility] [address] [place] [address] Nurse PractitionerBehavioral Health01/22/25 Rohan Waters LPC Social WorkerBehavioral [facility]03/06/25Team MemberRelationshipSpecialtyStart Date End Date Molina De Anda MD PCP - GeneralFainly Medicine02/21/24 Angel Luis Groves NP Nurse Pract[facility]Gr[facility] Hospitally [facility]02/21/24 Eunice Dias [facility] [address] [facility] [address] [place] [address] Nurse PractitionerBehavioral Health01/22/25 Rohan Waters LPC Social WorkerBehavioral Health03/06/25Team MemberRelationshipSpecialtyStart Date End Date Molina De Anda MD PCP - GeneralFamily Medicine02/21/24 Angel Luis Groves NP Nurse PractitionerFamily Medicine02/21/24 Eunice Dias, [facility] [address] [facility] [address] [place] [phone] Nurse PractitionerBehavioral Health01/22/25 Rohan Waters LPC Social WorkerBehavioral Health03/06/25Team MemberRelationshipSpecialtyStart Date End Date Pascale Arana, ENVIRONMENTAL CONSERVATION OFFICER-ENTRY LEVEL FINANCIAL ANALYST [facility] [place] [address] PCP - GeneralNurse Practitioner04/02/25Team MemberRelationshipSpecialtyStart Date End Date Molina De Anda MD PCP - GeneralFamily Medicine02/21/24 Angel Luis Groves, MARY JO Nurse PractitionerFamily Medicine02/21/24 Eunice Dias, [facility] [address] [facility] [address] [place] [id number] Nurse PractitionerBehavioral Health01/22/25 Rohan Waters [employer] Social WorkerBehavioral Health03/06/25Team MemberRelationshipSpecialtyStart Date End Date Molina De Anda MD PCP - GeneralFamily Medicine02/21/24 Angel Luis Groves NP Nurse PractitionerFaboston home for incurables Medicine02/21/24 [facility] Dias, [facility] [address] [id number] [facility]01/22/25 Rohan Waters LPC Social Workerhavioral Health03/06/25 Team Status: Active Member Role Status Dates Pascale Arana GENERAL SUPERVISOR-C Primary Care Provider Active Team Status: Inactive Member Role Status Dates Shun Arshad MD Attending Provider Active Star t: March 25, 2025 End: March 25, 2025Pascale Arana NP-CPrimary Care ProviderActiveStart: March 25, 2025 End: March 25, 2025 Team Status: Inactive Member Role Status Dates Pascale Arana GENERAL SUPERVISOR-C Primary Care Provider Active Start: April 23, 2025 End: April 23, 2025Sylvia Middleton ProviderActiveStart: April 23, 2025 End: April 23, 2025 Team Status: Active Member Role Status Dates Pascale Arana GENERAL SUPERVISOR-C Primary Care Provider Active Start: April 23, 2025 Shun Arshad MDOther ProviderActiveStart: April 23, 2025 Sylvia Castelan ProviderActiveStart: April 23, 2025 Team Status: Inactive Member Role Status Dates Pascale Arana GENERAL SUPERVISOR-C Primary Care Provider Active Start: April 30, 2025 End: April 30, 2025Pascale Arana NP-CAttending ProviderActiveStart: April 30, 2025 End: April 30, 2025Team MemberRelationshipSpecialtyStart DateEnd Date Pascale Arana, ENVIRONMENTAL CONSERVATION OFFICER-ENTRY LEVEL FINANCIAL ANALYST [place] [address] PCP - GeneralNurse Practitioner04/02/25 Team Status: Active [...] BE BASED ON THE PRIMARY CLINICAL RECORDS. [employer] provides no warranty or guarantee of the accuracy or completeness of information in this document.
--- NOTE | 2025-05-21 08:15 | PM.CN ---
Consult Note: HPI Data of Consult Patient: known to practice within the last 3 years Consult date: 05/21/25 Requesting Physician: Flory Payne NP Primary Care Provider: Pascale Arana NP Consult Narrative Reason for consult: low back pain Narrative: Talia Mercado a pleasant 55 year old female presents for evaluation of chronic low back pain. Pt has failed to benefit from > 6 weeks of PT/HEP, heat, ice, tylenol, NSAIDs. cervical mri and lumbar mri consistent for degenerative changes and mild to moderate stenosis. Pain in low back 2/10 aching, increasing to 8/10 with lifting, driving, standing, sitting, stretching, lifting, bending, stairs, activity. notes improvement with lying. recently underwent bilateral L4-5 L5-S1 MBB #1 with 100% improvement while anesthetized, preop pain up to 8/10 post op pain 0/10 for at least 3 hours. pt noted significant improvement in pain with driving, standing, walking cc:: CC: Flory Payne NP [facility] Medical History Overactive bladder ?N32.81 - Overactive bladder (ICD-10) Obesity ?E66.9 - Obesity, unspecified (ICD-10) Nicotine dependence ?F17.200 - Nicotine dependence, unspecified, uncomplicated (ICD-10) History of cystocele ?Z87.448 - Personal history of other diseases of urinary system (ICD-10) PVD (peripheral vascular disease) ?I73.9 - Peripheral vascular disease, unspecified (ICD-10) Iron deficiency anemia ?D50.9 - Iron deficiency anemia, unspecified (ICD-10) Fibromyalgia ?M79.7 - Fibromyalgia (ICD-10) Bipolar disorder ?F31.9 - Bipolar disorder, unspecified (ICD-10) UGIB (upper gastrointestinal bleed) ?K92.2 - Gastrointestinal hemorrhage, unspecified (ICD-10) Anxiety with depression ?F41.8 - Other specified anxiety disorders (ICD-10) Gastro-esophageal reflux ?K21.9 - Gastro-esophageal reflux disease without esophagitis (ICD-10) Arthritis of left foot ?M19.072 - Primary osteoarthritis, left ankle and foot (ICD-10) RP (rectal prolapse) ?K62.3 - Rectal prolapse (ICD-10) Chronic headache ?R51.9 - Headache, unspecified (ICD-10) ?G89.29 - Other chronic pain (ICD-10) Surgical History History of tubal ligation ?Z98.51 - Tubal ligation status (ICD-10) Hx of cholecystectomy ?Z90.49 - Acquired absence of other specified parts of digestive tract (ICD-10) H/O cystoscopy ?Z98.890 - Other specified postprocedural states (ICD-10) H/O esophagogastroduodenoscopy ?Z98.890 - Other specified postprocedural states (ICD-10) Hx of gastric bypass ?Z98.84 - Bariatric surgery status (ICD-10) Family History Mother Family history of diabetes mellitus Father Heart disease Social History Within the past year, how often did you have a drink containing alcohol: never Within the past year, how often did you have six or more drinks on one occasion: never Score interpretation: A score less than 3 is consistent with normal alcohol consumption. Smoking status: Current every day smoker Second hand tobacco smoke exposure: Yes Non-prescribed substance use: denies use Previous occupational history: [employer] Known occupational exposures/hazards: No Highest level of school completed/degree received: high school graduate Little interest or pleasure in doing things: not at all Feeling down, depressed, or hopeless: not at all Do you think of yourself as: straight/heterosexual Gender Identity: female Meds Home Medications and Allergies Home Medications ?Medication ?Instructions ?Recorded ?Confirmed ?Type duloxetine 30 mg capsule,delayed 60 mg PO DAILY 06/19/23 05/19/25 History release (Cymbalta) zolpidem 10 mg tablet (Ambien) 10 mg PO DAILY PRN insomnia 07/11/23 05/19/25 History cyclobenzaprine 10 mg tablet 10 mg PO TID PRN muscle spasm 01/31/25 05/19/25 History fexofenadine 180 mg tablet 180 mg PO DAILY 01/31/25 05/19/25 History (Layla Allergy) gabapentin 300 mg capsule 900 mg PO TID 01/31/25 05/19/25 History (Neurontin) meloxicam submicronized 10 mg 15 mg PO DAILY 01/31/25 05/19/25 History capsule (Vivlodex) vitamin B12 500 mcg-folic acid 400 1 tab PO DAILY 01/31/25 05/19/25 History mcg tablet cariprazine 3 mg capsule (Vraylar) 3 mg PO DAILY 03/10/25 05/19/25 History cholecalciferol (vitamin D3) 25 1,000 unit PO DAILY 05/05/25 05/19/25 History mcg (1,000 unit) capsule mirabegron 50 mg tablet,extended 50 mg PO DAILY 05/05/25 05/19/25 History release 24 hr (Myrbetriq) sucralfate 1 gram tablet 1 g PO TID 05/05/25 05/19/25 History Allergies Allergy/AdvReac Type Severity Reaction Status Date / Time Penicillins Allergy Severe Hives Verified 05/19/25 11:37 Exam Constitutional Documenting provider has reviewed patient's vital signs: yes Common normals: no apparent distress, oriented x3, healthy appearing, alert and well nourished General appearance: cooperative HENOR Common normals: normocephalic, hearing grossly normal bilaterally and moist oral mucous membranes Head and scalp: normocephalic Eye Common normals: PERRL Pupil: PERRL Neck & C-Spine Common normals: full ROM General: normal visual inspection Cervical spine: cervical ROM normal Chest Common normals: inspection of chest normal Respiratory Common normals: normal respiratory effort, no retractions and no use of accessory muscles Back & Pelvis Lumbar spine/lower back: ROM limited, pain with ROM, lumbar spinal tenderness and straight leg raise negative bilaterally Sacroiliac joints: SI joints normal Other: positive facet loading strength 5/5 in BLE Neuro Common normals: oriented x3 Sensorium/orientation: alert Psych Common normals: mental status grossly normal, thought process normal, cooperative, affect normal, speech normal and activity/motor behavior normal Speech: normal speech Thought process: normal thought process Results Additional Findings Additional findings: If on a controlled substance or opioids, I have checked an [place] report on this patient and there are no aberrancies noted in the prescribing history.??If on a controlled substance or opioid a drug screen was completed and reviewed within the last year, and if there has not been a drug screen completed we ordered one today to monitor higher risk, state monitored pain medication use. As part of providing excellent, safe, comprehensive care, the following was completed at our patient's visit: 1. A medication reconciliation and review to ensure accurate knowledge of current/active medications, including asking our patients to inform us about any [id number] medications or herbal remedies/nutritional supplements/alternative remedies. 2. A review to specifically ensure our patients have had annual screening for screening for depression, screening for tobacco use, and screening for unhealthy alcohol use. For concerning screenings had a discussion with the patient, provided patient education, and recommended follow-up with primary care provider when appropriate. If patient noted with a risk of falling, they received education on strength, gait, and balance training to prevent future risk of falling. Portions of this note may have been carried over from the previous visit and updated as appropriate. Please note this office utilizes paper charting in addition to the electronic medical record. A list of current medications, vitals, and PMH is available there as the clinical staff outside of myself do not have access to [employer] charting during the clinic day operations. As part of providing quality comprehensive care the current medications, vitals, and PMH were reviewed in the paper chart. Assessment and Plan Assessment and Plan (1) Lumbar spondylosis: Plan The patient has had over 3 months of moderate to severe low back pain with functional impairment and inadequate response to conservative care including NSAIDS (unless there are contraindication such as concurrent blood thinners), multiple oral or topical pain medications, and home exercise program/physical therapy.? Patient has completed >6 weeks of guided home exercise program and/or formal physical therapy program without relief of their symptoms.? I have reviewed the imaging of the lumbar spine and no red flags were identified.? The Oswestry Disability Index was completed, and the patient scored a 30%.? bilateral L4-5 L5-S1 mbb x2 in consideration of RFA for facet mediated pain continue current medications continue HEP as tolerated f/u after each injection
== END 2025-05-21 07:52 | disposition home or self-care (01) ==
LOC: PM 07:51
PROVIDERS: PCP Nurse Practitioner; Visit Provider Nurse Practitioner
DX: M47.816 Spondylosis without myelopathy or radiculopathy, lumbar region (principal)
CPT/HCPCS: G0463

== ENCOUNTER 2025-06-02 07:33 | Day surgery (SDC) | payer OTHER, SELFPAY ==
--- OUTSIDE RECORDS SUMMARY | 2024-09-03 10:30 | XMS_ITS ---
Author Organization The [facility] in [place] Address [address] [place] [address] Care Team Providers Care Illustrator Set Name Role Phone None, Unknown or Primary Care Provider Unavailab Mathew Lee Unavailable [phone] REASON FOR VISIT Left foot, surgical discussion about removal of hardware Encounters Encounter Location Date Provider Diagnosis [facility] (PODIATRY) [address] [place] [address] [place] [address] 09/03/2024 Mathew Hoff Left foot pain M79.672 Assessments Encounter Date Diagnosis (ICD Code) Assessment Notes Treatment Notes Treatment Clinical Notes Section Notes 09/03/2024 Left foot pain (ICD-10 - M79.672 ) Plan Of Treatment Pending Test Test Name Order Date XR Foot LT (3 views) * 09/03/2024 Progress Notes * Talia RUTHERFORDDOB:[birth year] (55 yo F)Acc No.[id number]:09/03/2024 UNLOCKED PROGRESS NOTE Follow Up Patient: Talia FREED :?Mathew Hoff DPLashaun, MSDOB:1970???Age: 54 Y???Sex:FemaleDate:09/03/2024Phone:[phone]:[address] [id number]:Unknown or None Subjective: * Chief Complaints: * 1 . Left foot, surgical discussion about removal of hardware. * Medical History: Objective: * Vitals: Assessment: * Assessment: 1.?Left foot pain - M79.672??? Plan: * Treatment: ?Imaging: XR Foot LT (3 views) * * * Electronic signature of Mathew Hoff DPM on 06/02/2025 at 07:38 AM ESTSign off status: PendingVisit Status:?N/S N/C (No Show/No Charge) * Provider: Miguel Hoff DPM, MS Date: 0 09/03/2024 Generated for Printing/Faxing/eTransmitting on:?06/02/2025 07:38 AM EST
--- OUTSIDE RECORDS SUMMARY | 2025-05-26 11:38 | XMS_ITS | Continuity of Care Document ---
Author Organization [facility] Address [address] [place] [address] Phone Care Team Providers Care Occupational Therapy Assist Name Role Phone Shun Arshad MD Attending Provider [phone] Pascale Arana NP-C Primary Care Provider Shun Arshad MD Other Provider Loc Aguayo MD Attending Provider Pascale Arana TISSUE PACKER-C Attending Provider Clinton Del Toro APRN Attending Provider Care Teams Patient Care Team Team Status: Active Member Role/Relationship Status Dates Pascale Arana NP-C Primary Care Provider Active Visit Care Team Team Status: Inactive Member Role/Relationship Status Dates Shun Arshad MD Attending Provider Active Star t: March 25, 2025 End: March 25, 2025Pascale Arana NP-CPrimary Care ProviderActiveStart: March 25, 2025 End: March 25, 2025 Visit Care Team Team Status: Active Member Role/Relationship Status Dates Pascale Arana NP-C Primary Care Provider Active Start: April 23, 2025 Shun Arshad MDOther ProviderActiveStart: April 23, 2025 Nolberto Castelanending ProviderActiveStart: April 23, 2025 Visit Care Team Team Status: Inactive Member Role/Relationship Status Dates Pascale Arana NP-C Primary Care Provider Active Start: April 30, 2025 End: April 30, 2025Pascale Arnaa TISSUE PACKER-CAttending ProviderActiveStart: April 30, 2025 End: April 30, 2025 Visit Care Team Team Status: Active Member Role/Relationship Status Dates JAVIER Malik Primary Care Provider Active Start: May 05, 2025 Pascale Arana NP-CAttenrafa ProviderActiveStart: May 05, 2025 Visit Care Team Team Status: Inactive Member Role/Relationship Status Dates JAVIER Malik Primary Care Provider Active Start: May 05, 2025 End: May 05, 2025Clinton Del Toro APRNAtgordo ProviderActiveStart: May 05, 2025 End: May 05, 2025 Patient Care Team Team Status: Inactive Member Role/Relationship Status Dates JAVIER Malik Primary Care Provider Active Start: May 26, 2025 End: May 26, 2025Pascale Arana NP-CAttenrafa ProviderActiveStart: May 26, 2025 End: May 26, 2025 Chief Complaint and Reason for Visit Chief Complaint Admit Date Spinal stenosis, cervical region Septemb er 2024 8:29am G56.01 April 23, 2025 8: 25am Established Patient April 30, 2025 4: 13pm REF GERD, CARA, BARIATRIC SURGERY STATUS May 05, 2025 2:21pm cough, runny nose May 26, 2025 3 :57pm Reason for Visit Admit Date Carpal tunnel [...] with psychotic features April 30, 2025 4:13pm Bloating May 05, 2025 2 :21pm Dyspepsia May 05, 2025 2 :21pm H/O gastric bypass May 05, 2025 2 :21pm History of GI bleed May 05, 2025 2 :21pm CARA (iron deficiency anemia) April 2:21pm Allergies, Adverse Reactions, Alerts Allergen Type Severity Reaction Last Updated Verified Status penciclovir Allergy Unknown hives May 26, 2025 1:36pm Angelo meza Active Penicillins Allergy Unknown Hives May 26, 2025 1:36pm Angelo meza Active Social History Smoking Status Status Start Date End Date Date of Observa tion Smokes tobacco daily (finding) May 26, 2025 1:42pm Observation Status Observation Response Date of Response Legal Sex Female (finding) Sex Assigned At BirthFemaleSept1969 Family History Relationship Condition Age at Onset Recorded Date/T arlet father Diabetes mellitus Unknown Heart diseaseUnknownDeceasedUnknownHistory of strokeUnknownHypertensionUnknown motherDiabetes mellitusUnknownDeceasedUnknownmaternal grandmotherMalignant neoplasm of thyroid glandUnknownfamily memberMalignant neoplasm of breastUnknown Problems Active Problems Problem Diagnosis/Recorded Date Onset Date Stat us LUQ abdominal pain April 23, 2025 6:28pm Unknown Active Carpal tunnel syndrome of right wrist March 25 8:31am Unknown Active Rectocele April 23, 2025 6:29pm Unknown Act ada Overactive bladder due to pr olapse of female genital organ April 23, 2025 6:29pm Unknown Active Nicotine dependence April 23, 2025 6:28pm Unknown Active JESSIKA (generalized anxiety disorder) April 23, 2025 6 :22pm Unknown Active PTSD (post-traumatic stress disorder) April 23 6:23pm Unknown Active Piriformis syndrome of right side March 25, 2025 8:30am Unknown Active H/O gastric bypass April 23, 2025 6:27pm Unknown Active Spinal stenosis, lumbosacral region April 23, 2025 6:30pm Unknown Active Sleep apnea April 23, 2025 6:24pm Unknown Act ada Plantar fasciitis of right foot April 23, 2025 6:29 pm Unknown Active Shortness of breath April 01, 2025 10:37am Unknow n Active Cervical stenosis of spine March 25, 2025 7:53am Unknown Active Vitamin B12 deficiency April 23, 2025 6:25pm Unknow n Active Detrusor muscle hypertonia April 23, 2025 6:26pm Un known Active Dyspepsia May 05, 2025 2:03pm Unknown Ac tive Fibromyalgia April 23, 2025 6:27pm Unknown Act ada Abnormal Papanicolaou smear of cervix with positive human papilloma virus (HPV) test April 23, 2025 6:24pm Unknown Active Malaise and fatigue April 23, 2025 6:28pm Unknown Active Environmental and seasonal allergies April 07, 025 7:37pm Unknown Active Uterine prolapse April 23, 2025 6:30pm Unknown Active Bloating May 05, 2025 1:28pm Unknown Ac tive Severe episode of recurrent major depressive disorder, with psychotic features April 23, 2025 6:23pm Unknown Active CARA (iron deficiency anemia) April 23, 2025 6:28pm Unknown Active BMI 32.0-32.9,adult April 23, 2025 6:25pm Unknown Active GERD without esophagitis April 23, 2025 6:27pm Unkn own Active History of GI bleed April 23, 2025 6:28pm Unknown Active Headache, menstrual migraine , with status migrainosus April 23, 2025 6:27pm Unknown Active Abdominal pain May 05, 2025 1:29pm Unknown Active Class 1 obesity due to exces s calories without serious comorbidity in adult April 23, 2025 6:26pm Unknown Active Constipation April 23, 2025 6:26pm Unknown Act ada Hot flashes due to menopause April 23, 2025 6:28pm Unknown Active Medications Medication Status Dose Units Route Directions Qty Days Refills S tart Date Stop Date End Date Reason(s) Instructions Adherence Albuterol Sulfate 90 mcg/actuation HFA aerosol inhaler Active 2 PUFF INHALATION Every 6 hours a s needed for shortness of breath or wheezing 8.5 0September 2024 10:36amShortness of breath Shortness of breathUnknownFexofenadine 180 mg exxnwrHknysa150JMBCZwgyj968 April 07, 2025 7:36pmEnvironmental and seasonal allergies Other allergic rhinitisUnknownCyclobenzaprine 10 mg tabletDiscontinuedMGPO March 24, 2025 11:00pmOctober 2024 9:25amTolterodine 4 mg capsule,extended release 24hrDiscontinuedMGPOSeptember 2024 11:00pmOctober 2024 1:25pmMeloxicam 15 mg tabletDiscontinuedMGPOSeptember 2024 11:00pmNov2024 1:39pmFexofenadine 180 mg tabletDiscontinuedMGPO March 24, 2025 11:00pmSeptember 2024 7:37pmLansoprazole 30 mg capsule,delayed release(DR/EC)DiscontinuedMGPOSeptember 2024 11:00pm May 26, 2025 1:39pmGabapentin 300 mg capsuleDiscontinuedMGPOSeptember 2024 11:00pmOctober 2024 9:25amZolpidem 10 mg jsbytzVpgwir58QNUTBukowlt as needed for sleepSeptember 2024 11:00pmUnknownAlbuterol Sulfate 90 mcg/actuation HFA aerosol inhalerDiscontinuedINHALATIONSeptember 2024 11:00pmSeptember 2024 10:38amFluticasone Propionate 50 mcg/actuation spray,tjukrffrtxZvudfg4MAQQCUIVOKDYQBQNf DirectedSeptember 2024 11:00pm UnknownCholecalciferol (Vitamin D3) 125 mcg (5,000 unit) mopnxntLukfyi560SGWHE DailySeptember 2024 11:00pmUnknownDuloxetine 30 mg capsule,delayed release(DR/EC)Mhlabq13XXGUUdwycoeJfwpaayvp 2024 11:00pmUnknownDuloxetine 60 mg capsule,delayed release(DR/EC)Dzldqh64DGZT.amSeptember 2024 11:00pm UnknownCariprazine (Vraylar) 3 mg capsuleDiscontinuedMGPOSeptember 2024 11:00pmOctober 2024 9:23amCyclobenzaprine 10 mg difyhaYnekae63MYDGWuukj times daily as needed for muscle spasmOctober 2024 9:23amUnknownGabapentin 300 mg dqfiknbSqdpcw670QZDJJglhy times dailyOctober 2024 9:25amUnknown Cyanocobalamin (Vitamin B-12) 1,000 mcg sosfscSlikvy7096EXCDCYrjouEczbqke 2024 11:00pmUnknownCariprazine (Vraylar) 4.5 mg capsuleActive4.5MGPODailyEaton Rapids Medical Center 2024 11:00pmUnknownEstradiol 0.01 % (0.1 mg/gram) wgmdiUrvfsx3FMZWUUKXB Twice a WeekOctcaverna memorial hospital 2024 11:00pmUnknownSucralfate (Carafate) 1 gram tablet Aqgplt8VLCA0h/Day before meals & montkif1676Ezedmor 2024 11:00pm Gastroesophageal reflux disease without esophagitis Gastro-esophageal reflux disease without esophagitisUnknownMirabegron (Myrbetriq) 50 mg tablet extended release 24 jiEmqcji02MCLLXwockDmwefei 2024 11:00pmUnknownEsomeprazole Magnesium (Nexium Packet) [address] for susp in wetrhfZipmiilzcxim65KJBXKvpdu14366Carifpl 2024 11:00pmNovember 2024 1:38pm Relevant Diagnostic Tests and/or Laboratory Data Laboratory Results Test Collection Date/Time Result Date/Time Result Interpretation Reference Range Result Comment Performing Site Urine Other Casts May 05, 2025 7:38am NONE SEEN #/LPFNONE SEENVitamin B12 LevelMay 05, 2025 7:44amOct2024 7:44am>2000 pg/mLAbnormal (applies to non-numeric results)[id number] at: [facility] [address] [place], [place] [id number] Director: Hector Franco PhD, Phone: [phone] 2024 7:44am May 05, 2025 7:97db505 mg/nD587-008Vcbkqbekq at: [facility] [address] [place], [place] [id number] Director: Hector Franco PhD, Phone: [phone] SaturationOct2024 7:44amOct2024 7:44am27.4 %25-Hydroxy Vitamin D TotalMay 05, 2025 7:44amMay 05, 2025 7:44am 69.7 ng/mL<20 ng/mL Vit D scqycfwgf09-<30 ng/mL Vit D -901 ng/mL Vit D sufficient>100 ng/mL Potential ToxicityFerritinEaton Rapids Medical Center 2024 7:44am May 05, 2025 7:44am30.0 ng/mL8.0-252.0Cholesterol/HDL RatioOctcaverna memorial hospital 2024 7:44amAprcaverna memorial hospital 2024 7:44am2.33.3 - 4.4 LOW RISK4.4 - 7.1 AVERAGE RISK7.1 - 11.0 MODERATE RISK>11.0 HIGH RISKAnion GapOctcaverna memorial hospital 2024 7:44am May 05, 2025 7:44am13.1Basophils # (Auto)May 05, 2025 7:44amEaton Rapids Medical Center 2024 7:44am0.1 10 3/uL0.0-0.1Urine Other CrystalsAprcaverna memorial hospital 2024 7:38am None Seen #/HPFNone SeenIron LevelEaton Rapids Medical Center 2024 7:44amOctcaverna memorial hospital 2024 7:44am83.0 ug/dL50.0-170.0Cholesterol LevelEaton Rapids Medical Center 2024 7:44amEaton Rapids Medical Center 2024 7:49gd122 mg/dL<=200Albumin/Globulin RatioEaton Rapids Medical Center 2024 7:44am May 05, 2025 7:44am1.2Basophils (%) (Auto)May 05, 2025 7:44amEaton Rapids Medical Center 2024 7:44am1.1 %0.2-2.0Urine BacteriaOctcaverna memorial hospital 2024 7:38amTRACE #/HPF Abnormal (applies to non-numeric results)NONE SEENTotal Iron Binding Capacity May 05, 2025 7:44amMay 05, 2025 7:93ti626.0 ug/dL250.0-450.0HDL CholesterolOctcaverna memorial hospital 2024 7:44amOctcaverna memorial hospital 2024 7:44am51 mg/dL40-60> or =60 mg/dl - LOW CARDIOVASCULAR RISK<40 mg/dl - HIGH CARDIOVASCULAR RISKAlbumin May 05, 2025 7:44amOctober 2024 7:44am3.6 g/dL3.4-5.0Eosinophils # (Auto)May 05, 2025 7:44amOctober 2024 7:44am0.4 10 3/uL0.0-0.7Urine BilirubinOctober 2024 7:38amNEGATIVENEGATIVELDL Cholesterol, Calculated May 05, 2025 7:44amOctober 2024 7:44am52.2 mg/dL<100 mg/dl KSECKAN808-770 mg/dl NEAR OR ABOVE WODTQCB871-849 mg/dl BORDERLINE APEV396-961 mg/dl HIGH>190 mg/dl VERY HIGHAlkaline PhosphataseOctober 2024 7:44am May 05, 2025 7:44am95 U/G81-448Efcaszstbyo (%) (Auto)May 05, 2025 7:44amOctober 2024 7:44am6.2 %0.9-7.0Urine Occult BloodOctober 2024 7:38amNEGATIVENEGATIVETriglycerides LevelOctober 2024 7:44amOctober 2024 7:44am64 mg/dL<=150Alanine Aminotransferase (ALT/SGPT)May 05, 2025 7:44amOctober 2024 7:44am25 U/G59-95DehwjwrbziCvahpea 2024 7:44am May 05, 2025 7:44am40.7 %36.0-48.0Urine AppearanceOct2024 7:38amCLEARCLEARVLDL CholesterolOctober 2024 7:44amOctober 2024 7:44am12.8 mg/dLAspartate Amino Transf (AST/SGOT)May 05, 2025 7:44am May 05, 2025 7:44am23 U/G52-55VdsnszcvkcQwbbopb 2024 7:44amOctober 2024 7:44am13.6 g/dL12.0-16.0Urine ColorOctober 2024 7:38amLT. YELLOWYELLOWBUN/Creatinine RatioOctober 2024 7:44amOctober 2024 7:44am25.8Immature Granulocyte # (Auto)May 05, 2025 7:44amOctober 2024 7:44am0.01 10 3/uL0.00-0.03Urine Glucose (UA)May 05, 2025 7:38am NEGATIVE mg/dLNEGATIVEBlood Urea NitrogenOctober 2024 7:44amOctober 2024 7:44am16.0 mg/dL7.0-18.0Immature Granulocyte % (Auto)May 05, 2025 7:44amOctober 2024 7:44am0.1 %0.0-0.5Urine KetonesOctober 2024 7:38amNEGATIVE mg/dLNEGATIVECalcium LevelOctober 2024 7:44amOctober 2024 7:44am8.7 mg/dL8.5-10.1Lymphocytes # (Auto)May 05, 2025 7:44amOctober 2024 7:44am2.7 10 3/uL1.2-3.8Urine Leukocyte EsteraseOct2024 7:38amNEGATIVENEGATIVEChloride LevelOct2024 7:44amOctober 2024 7:02pd211 mmol/E10-779Kqgkwozheqp (%) (Auto)May 05, 2025 7:44amOctober 2024 7:44am39.2 %20.5-60.0Urine MucusOctober 2024 7:38amNONE SEEN NONE SEENCarbon Dioxide LevelOctober 2024 7:44amOctober 2024 7:44am 29.9 mmol/L21.0-32.0Mean Corpuscular HemoglobinOctober 2024 7:44amOctober 2024 7:44am32.2 pg26.7-34.0Urine NitriteOctober 2024 7:38amNEGATIVE NEGATIVECreatinineOctober 2024 7:44amOctober 2024 7:44am0.62 mg/dL 0.55-1.02Mean Corpuscular Hemoglobin ConcentOctober 2024 7:44amOctober 2024 7:44am33.4 g/dL29.9-35.2Urine pHOctober 2024 7:38am6.05.0-9.0 Estimated GFR ()May 05, 2025 7:44amOctober 2024 7:44am>60>=60 mL/min/1.73m 2Mean Corpuscular VolumeOctober 2024 7:44am May 05, 2025 7:44am96.4 fL81.0-99.0Urine ProteinOctober 2024 7:38am NEGATIVE mg/dLNEG/TRACEEstimated GFR (Non- AmericanOctober 2024 7:44amOctober 2024 7:44am>60>=60 mL/min/1.73m 2Monocytes # (Auto)May 05, 2025 7:44amOctober 2024 7:44am0.4 10 3/uL0.3-0.8Urine RBCOctober 2024 7:38amNONE SEEN #/HPF0-2GlobulinOctober 2024 7:44amOctober 2024 7:44am3.0 g/dLMonocytes (%) (Auto)May 05, 2025 7:44amOctober 2024 7:44am5.2 %1.7-12.0Urine Specific GravityOct2024 7:38am <=1.005Abnormal (applies to non-numeric results)1.005-1.025Glucose LevelOctober 2024 7:44amOctober 2024 7:44am77 mg/cM30-441Wxzs Platelet Volume May 05, 2025 7:44amOctober 2024 7:44am9.7 fL9.5-13.5Urine Squamous Epithelial CellsOctober 2024 7:38amFEW #/LPFAbnormal (applies to non- numeric results)NONE/RAREPotassium LevelOctober 2024 7:44amOctober 2024 7:44am4.0 mmol/L3.5-5.1Neutrophils # (Auto)May 05, 2025 7:44amOctober 2024 7:44am3.4 10 3/uL1.4-6.5Urine UrobilinogenOctober 2024 7:38am 0.2 EU/dL0.2-1.0Sodium LevelOctober 2024 7:44amOctober 2024 7:44am 144 mmol/C197-913Zifwfznrdkl (%) (Auto)May 05, 2025 7:44amOctober 2024 7:44am48.2 %43.0-75.0Urine WBCOctober 2024 7:38amNONE SEEN #/HPFNONE SEENTotal BilirubinOctober 2024 7:44amOctober 2024 7:44am0.3 mg/dL 0.2-1.0Platelet CountOctober 2024 7:44amOctober 2024 7:17pl166 10 3/bD480-243Zcrnp ProteinOctober 2024 7:44amOctober 2024 7:44am6.6 g/dL6.4-8.2Red Blood CountOctober 2024 7:44amOctober 2024 7:44am4.22 10 6/uL4.20-5.40Red Cell Distribution WidthOctober 2024 7:44amOctober 2024 7:44am12.6 %11.0-15.0Corrected White Blood CountOctober 2024 7:44amOctober 2024 7:44am7.0 10 3/uL4.0-11.0 Vital Signs Vital Reading Result Reference Range Collection Date/Time Height 65 [in_i] March 25, 2025 7:68vdMqjrxi98.60 kgSeptember 2024 7:37amBMI (Body Mass Index)29.2 kg/o4Spvmbeevz2024 7:00nxYllmln71 [in_i]April 30, 2025 3:56vaTppneg46.08 kgOctober 2024 3:44pmBody Kyzaacodsdw45 [degF]97.6-99.0 April 30, 2025 3:44pmHeart Rate65 /dck24-486Hnkoehj 8th, 2025 3:44pm Respiratory rate16 /jsl03-33Pregdeo 8th, 2025 3:44pmOxygen saturation by Pulse dezcipsr34 %95-100Oct2024 3:44pmBP Fskmscuq44 mm[Hg]100-140Oct2024 3:44pmBP Jsgyzviki81 mm[Hg]60-100Oct2024 3:44pmBMI (Body Mass Index)29.3 kg/y7Yyazffc2024 3:82zlTxbgnf73 [in_i]May 05, 2025 1:02jyRvsqoi71.83 kgOctober 2024 1:29pmHeart Rate83 /zpf74-646Xghiblw 13th, 2025 1:29pmBP Ykpbncdn21 mm[Hg]100-140Oct2024 1:29pmBP Vpvtymstw42 mm[Hg]60-100October 2024 1:29pmBMI (Body Mass Index)29.2 kg/m2 May 05, 2025 1:84hrIxiaud12 [in_i]May 26, 2025 4:51wsXsulhj31.37 kg May 26, 2025 4:20pmBody Qlwtocgbbgk98.5 [degF]97.6-99.0May 26, 2025 4:20pmHeart Rate93 /ghy15-247YxejbayaMay 26, 2025 4:20pmRespiratory rate18 /min 12-24Nov2024 4:20pmOxygen saturation by Pulse rkfnelsy67 %95-100 May 26, 2025 4:20pmBP Alfavqqo11 mm[Hg]100-140Nov2024 4:20pmBP Rhrtxtuvq23 mm[Hg]60-100Nov2024 4:20pmBMI (Body Mass Index)29.1 kg/m2 May 26, 2025 4:20pm Advance Directives Advance Directive Response Recorded Date/ Time Advance Directives No March 6:38pm Insurance Providers Guarantor Letitia Quintanilla Address [address] [place] [address]Fbjrxqd Info.Home Phone: Coverage Status Update:2025 Payer Group Member ID Coverage Type Subscriber Relationship to Subscriber Effective Date Expiration Date [employer] Id: [id number] Schooley , D Id: [id number] [address] [place] [address] Home Phone: Email: [email or web address] Encounters Encounter Location(s) Arrival/Admit Date Discharge/Departure Date Discharge/Departure Disposition Provider(s) Departed Physician/ Provider Office Visit -On License Of [facility] March 25, 2025 8:29am March 25, 2025 9:00am Discharged to home care or self care (routine discharge) hSun Arshad MD Non-patient / Non-visit -On License Of [facility] April 23, 2025 8:25am Letitia Salazar MDDeparted Physician/Provider Office Visit-[facility] 2024 4:13pmOctober 2024 5:27pmDischarged to home care or self care (routine discharge)NORMA MalikCNon-patient / Nww-tjjeb-[employer]October 2024 8:38amPascale Arana NP-CDeparted Physician/Provider Office Visit-On License Of [facility] GastroOctober 2024 2:21pmOctober 2024 2:59pmDischarged to home care or self care (routine discharge)Clinton Del Toro APRNDeparted Physician/Provider Office Visit-[facility] 2024 3:57pmNovember 2024 4:38pmDischarged to home care or self care (routine discharge)JAVIER Malik Recent Diagnosis Onset Date Admit Date Carpal tunnel syndrome of right wrist Unknown March 25, 2025 8:29am Cervical stenosis of spine Unknown Septe 2024 8:29am Piriformis syndrome of right side Unknown March 25, 2025 8:29am Class 1 obesity due to exces s calories without serious comorbidity in adult Unknown April 30, 2025 4:13pm Fibromyalgia Unknown April 30 4:13pm GERD without esophagitis Unknown April 30, 2025 4:13pm CARA (iron deficiency anemia) Unknown Apr 4:13pm Nicotine dependence Unknown April 30, 2025 4:13pm Overactive bladder due to pr olapse of female genital organ Unknown April 30, 2025 4:13pm Severe episode of recurrent major depressive disorder, with psychotic features Unknown April 30, 2025 4: 13pm Bloating Unknown May 05 2:21pm Dyspepsia Unknown May 05 2:21pm H/O gastric bypass Unknown May 05, 2025 2:21pm History of GI bleed Unknown April 2:21pm CARA (iron deficiency anemia) Unknown Apr 2:21pm Assessments Diagnosis Onset Date Resolution Status [...] depressive disorder, with psychotic features acuteOctober 2024 4:13pmBloatingacuteOctober 2024 2:21pmDyspepsia acuteOctober 2024 2:21pmH/O gastric bypassacuteOctober 2024 2:21pm History of GI bleedacuteOctober 2024 2:21pmIDA (iron deficiency anemia) acuteOctober 2024 2:21pm Plan of Treatment Author Shun Arshad [facility] CenterAuthoredSeptember 2024 8:32amI independently evaluated the MRI of the lumbar [...] see the patient after. Author Pascale Arana [facility] CenterAuthoredOctober 2024 5:06pmcurrent meds: duloxetine, flexeril, gabapentin Recommendations: freq small [...] of the risks of continued smoking: stroke, GA, all forms of cancer, lung disease, and [...] meds due to freq urination has seen [facility] in the last month, they are ordering [...] months to ensure stabilization of her condition Author Clinton Carmeolginny [facility] CenterAuthoredOctober 2024 2:09pm- Order EGD for further evaluation of new onset dyspepsia and patient with history of reported Juanito-en-Y gastric bypass but is currently on meloxicam therapy. - Order Nexium sprinkles for treatment of dyspeptic complaints. Patient can continue sucralfate therapy that was ordered by PCP. Patient also able to utilize as needed Pepcid for breakthrough symptoms. - Patient advised to speak with provider who is managing her meloxicam about possibility of switching to a non-NSAID pain regimen. - Anti-reflux precautions discussed: ?? Loss weight ?? Elevate head of bed 4-6 inches when sleeping ?? Avoid eating within 3 hours before bedtime. ?? Maintain upright posture during and after eating. ?? Avoid clothing that is tight in the abdominal area. ?? Minimize narcotics ?? Avoid foods that make symptoms worse (examples include coffee, chocolate, alcohol, peppermint, and fatty foods) . Eat 5-6 small meals throughout the day instead of 2-3 large meals. ?? Do not use tobacco products ?? Minimize alcohol use ?? Avoid lying down for 3 hours after a meal - Follow-up in office post EGD. Future Tests Future scheduled test information is unavailable Pending Tests Test Name Ordered Date Scheduled Date Comprehensive Metabolic Panel April 30, 2025 6:14am Future Visits Future appointment information is unavailable Future Procedures Procedure Name Ordered Date Scheduled Date NE emg UE RT March 25, 2025 10:45am Dipstick and MicroscopicOctober 2024 6:14amVitamin R52Cgnlhlf 2024 6:14amFerritinOctober 2024 6:14am Future Medications Future medication information is unavailable Patient Instructions Patient instructions are unavailable"
--- OUTSIDE RECORDS SUMMARY | 2025-05-28 14:30 | XMS_ITS | Encounter Summary ---
Author Organization [facility] [employer] Sys [employer] Address [id number] [address] [place] [address] Care Team Providers Care Social Staff Worker Name Role Phone Pascale Arana SENIOR PHARMACY TECHNICIAN-CORE FITTER Primary Care Provider Reason for Referral * Misc (Routine) - Pending ReviewSpecialtyDiagnoses / ProceduresReferred By ContactReferred To Contact Diagnoses Cystocele with second degree uterine prolapse History of reconstructive repair of rectocele Urge urinary incontinence Procedures Measure post void residual Tania Asif MD [address] [place] [address] Phone: tel: fax: Referral IDStatusReasonStart DateExpiration DateVisits RequestedVisits [id number] [id number]/ Reason for Visit * ReasonCommentsProcedure Encounter Details DateTypeDepartmentCare Team (Latest Contact Info)Tfgppqqbyie43/05/2025 2:30 PM ESTProcedure visit [facility] Pelvic Health - Urogyn [address] [facility] [address] [address] [place] [address] Tania Asif MD [address] [place] [address] Urge urinary incontinence (Primary Dx); Cystocele with second degree uterine prolapse; History of reconstructive repair of rectocele Social History Tobacco UseTypesPacks/DayYears UsedDateSmoking Tobacco: Every XjhUwfumdpcfk785 Smokeless Tobacco: Never Tobacco Cessation:Ready to Q uit: Not Asked; Counseling Given: Not Answered Alcohol UseStandard Drinks/WeekCommentsYes0 (1 standard drink = 0.6 oz pure alcohol)ChildcareAnswerDate GuiwsfmtTkjygbqajCuuqdrw28/12/2019EmploymentAnswer Date TdnohmvvQhmqdklkatSlnuomp19/12/2019Hunger ScreeningAnswerDate Recorded Within the past 12 months we worried whether our food would run out before we got money to buy more.Never True05/28/2025Within the past 12 months the food we bought just didn't last and we didn't have money to get more.Never True 05/28/2025Purpose - LifeAnswerDate RecordedPurpose and direction in lifeUnknown 1CommentsNoSex and Gender InformationValueDate RecordedSex Assigned at BirthNot on fileLegal ZrtLdwqkq35/06/2015 12:10 PM EDTGender IdentityNot on fileSexual OrientationNot on filedocumented as of this encounter Last Filed Vital Signs Vital SignReadingTime TakenCommentsBlood Wkxfftos011/6705/28/2025 2:35 PM EST Vbcfa851105/28/2025 2:35 PM ESTTemperature--Respiratory Rate--Oxygen Saturation-- Inhaled Oxygen Concentration--Becvyf14.7 kg (173 lb 9.6 oz)05/28/2025 2:35 PM LAOFmdbeo486.4 cm (5' 5.5 )05/28/2025 2:35 PM ESTBody Mass Index28.45107/28/2024 2:35 PM ESTdocumented in this encounter Progress Notes * Tania Asif MD - 05/28/2025 2:30 PM EST CC: ANOOP HPI: Ms. Mercado is a 55-year-old, referred for evaluation of [...] diarrhea, fecal incontinence. She is SA. 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 Past [...] then 1-2 times per week thereafte fexofenadine (HUNG) 180 mg, Daily fluticasone propionate (FLONASE) 50 mcg/actuation nasal spray 2 sprays, Daily gabapentin (NEURONTIN) 300 mg, 3 times daily lansoprazole (PREVACID) 30 mg, Every morning before breakfast meloxicam (MOBIC) 15 mg, Daily mirabegron (MYRBETRIQ) 50 mg, oral, Daily tolterodine LA (DETROL LA) 4 mg, Daily zolpidem (AMBIEN) 10 mg, Daily PRN Allergies Allergen Reactions Penicillins Hives PE: BP 103/67 Pulse 80 Ht 166.4 cm (5' 5.5 ) Wt 78.7 kg (173 lb 9.6 oz) BMI 28.45 kg/m?? Alert, NAD RRR CTA B Abd Soft, NT/ND Genitourinary: External exam Vulva and introitus: Normal [...] Wall -3 Bp Posterior Fornix -2 D Urodynamic Evaluation Pre-test UA: A urinalysis was obtained using sterile technique an in and out catheter transurethrally. A dipstick of the patient's urine was obtained. Please refer to lab results. Uroflow Study: Amount Voided: 228 mL Time to Max Flow: 5 sec Maximum Flow Rate: 44 mL/sec Average Flow Rate: 13 mL/sec Curve Pattern: Normal Straight catheterization for Postvoid Residual: 30 mL CMG with Voiding Pressure Study and urethral pressure profile with intraabdominal probe: The patient's bladder was retrogradely filled through the filling port of a dual port urodynamic pressure catheter. A single port urodynamic pressure catheter was placed in the rectum. All the catheters were zeroed at atmospheric pressure. T doc pressure catheters were utilized throughout. At 50 cc of bladdervolume the dual port catheter was withdrawn from the bladder manually to the point of maximal urethral pressure. Prolapse reduction was accomplished with the posterior blade of a Grave's speculum. The patient was positioned in seated lithotomy. Standing cystometrogram was not done. First Sensation: 5 mL First Desire: 28 mL Strong Desire: 111 mL Capacity: 269 mL Compliance: Normal Detrusor Overactivity: None VLPP and CLPP at 150 mL: No leakage VLPP and CLPP at LONGTERM: No leakage UPP at 50 mL was 95 cm H2O UPP at LONGTERM was 81 cm H2O MUCP (maximal urethral closure pressure): 88 cm H2O Voiding Pressure Flow Study: The patient was asked to void at maximum cystometric capacity, uprightin the urodynamics chair while flow rate and voided volume were measured electronically. The singleport urodynamic catheter was left in the rectum with P2 measuring abdominal pressure. The patient was able to perform the voiding study. The patient voided by detrusor contraction and urethral relaxation. QMax: 27 mL/s PDet at QMax: 1 cm H2O Voided volume: 307 mL PVR: 0 mL Surface EMG Normal: During bladder filling the EMG revealed skeletal muscle relaxation. During voiding the EMG revealed skeletal muscle activity. Interpretation: Normal bladder capacity, sensation, compliance. No detrusor overactivity. No urodynamic stress incontinence. Normal urethral pressure profile. Normal emptying. Results for orders placed or performed in visit on 05/28/25 Measure post void residual Collection Time: 05/28/25 12:00 AM Result Value Ref Range Volume 30 ml POCT urinalysis dipstick only Collection Time: 05/28/25 3:04 PM Result Value Ref Range External Poct Urine Color YELLOW External Poct Urine Appearance CLEAR External Poct Urine Glucose Negative External Poct Urine Ketones Negative External Poct Urine Blood Negative External Poct Urine Ph 6 External Poct Urine Protein Negative External Poct Urine Nitrite Negative External Poct Urine Leukocyte Esterase Negative A/P: 1. Urge urinary incontinence (Primary) - POCT urinalysis dipstick only - Measure post void residual 2. Cystocele with second degree uterine prolapse - POCT urinalysis dipstick only - Measure post void residual 3. History of reconstructive repair of rectocele - POCT urinalysis dipstick only - Measure post void residual She has and International continence society stage II anterior compartment prolapse, cystocele, anduterine prolapse. We discussed treatment options at length. She was offered conservative managementwith pelvic floor physical therapy and pessary trial. She declines and desires definitive surgical m anagement. I think she will be a good candidate for minimally invasive hysterectomy with igiugig tissue repair. Risks, benefits, alternatives discussed at length and informed consent was obtained. Risks discussed include but are not limited to bleeding, infection, injury to adjacent organs and structures, 30% risk of prolapse recurrence, risk of worsening bladder or bowel function, anesthetic risks, risks of conversion to open procedure. Her urodynamic testing was negative for USI. As such, she was not offered a concomitant IRWIN surgeryat the time of her prolapse repair. She was advised that despite this negative testing, there remains an approximately 10% risk of de rayo IRWIN which may need subsequent treatment. Plan: Total robotic hysterectomy, bilateral salpingo oophorectomy, uterosacral ligament suspension,anterior colporrhaphy, cystoscopy. documented in this encounter Plan of Treatment DateTypeDepartmentCare Team (Latest Contact Info)Ugrdinbabfh63/16/2025 2:45 PM ESTProcedure visit [facility] On [address] [address] 07/22/2025 2:45 PM ESTHospital Encounter [facility] Surgery [address] [place] [address] Tania Asif MD [address] [facility] [address] [place] [address] 07/22/2025 2:45 PM EST - 07/22/2025 5:30 PM ESTSurgery [facility] Surgery [address] [place] [address] Tania Asif MD [address] [facility] [address] [place] [address] DAVINCI HYSTERECTOMY SALPINGO OOPHORECTOMY [[id number] (CPT??)]09/03/2025 3:15 PM EST Office Visit [facility] Pelvic Health - Urogyn [address] [facility] [address] [place] [address] Tania Asif MD [address] [facility] [facility] [address] [place] [address] NamePriorityAssociated DiagnosesDate/TimeDAVINCI HYSTERECTOMY SALPINGO OOPHORECTOMY Cystocele with second degree uterine prolapse 07/22/2025 2:45 PM ESTDAVINCI SUSPENSION LIGAMENT UTEROSACRAL Cystocele with second degree uterine prolapse 07/22/2025 2:45 PM ESTREPAIR ANTERIOR CYSTOCELE VAGINA Cystocele with second degree uterine prolapse 07/22/2025 2:45 PM ESTCYSTOSCOPY Cystocele with second degree uterine prolapse 07/22/2025 2:45 PM ESTdocumented as of this encounter Procedures Procedure NamePriorityDate/TimeAssociated DiagnosisCommentsPOCT URINALYSIS DIPSTICK WWSXOrjfiue98/05/2025 3:04 PM EST Cystocele with second degree uterine prolapse History of reconstructive repair of rectocele Urge urinary incontinence MEASURE POST VOID SPCQMBLTCejedqn12/05/2025 Cystocele with second degree uterine prolapse History of reconstructive repair of rectocele Urge urinary incontinence documented in this encounter Results * POCT urinalysis dipstick only (05/28/2025 3:04 PM EST)ComponentValueRef Range Test MethodAnalysis TimePerformed AtPathologist SignatureExternal Poct Urine ColorYELLOWMANUALLY TRANSCRIBED RESULTSExternal Poct Urine AppearanceCLEAR MANUALLY TRANSCRIBED RESULTSExternal Poct Urine GlucoseNegativeMANUALLY TRANSCRIBED RESULTSExternal Poct Urine KetonesNegativeMANUALLY TRANSCRIBED RESULTSExternal Poct Urine BloodNegativeMANUALLY TRANSCRIBED RESULTSExternal Poct Urine Ub1LQQWSJLJ TRANSCRIBED RESULTSExternal Poct Urine ProteinNegative MANUALLY TRANSCRIBED RESULTSExternal Poct Urine NitriteNegativeMANUALLY TRANSCRIBED RESULTSExternal Poct Urine Leukocyte EsteraseNegativeMANUALLY TRANSCRIBED RESULTSSpecimen (Source)Anatomical Location / LateralityCollection Method / VolumeCollection TimeReceived SrerXxfyl46/05/2025 3:04 PM EST Narrative Authorizing ProviderResult TypeResult StatusNayamilex Asif MDPOINT OF CARE TEST ORDERABLESFinal ResultPerforming OrganizationAddressCity/State/ZIP CodePhone Number MANUALLY TRANSCRIBED RESULTS * Measure post void residual (05/28/2025)ComponentValueRef RangeTest Method Analysis TimePerformed AtPathologist VgmyxxzgpFjdyxg95dqUDAELODF TRANSCRIBED RESULTSSpecimen (Source)Anatomical Location / LateralityCollection Method / VolumeCollection TimeReceived TimeUrine Narrative Authorizing ProviderResult TypeResult StatusNadine C Laya MDNURSING ASSESSMENTSFinal ResultPerforming OrganizationAddressCity/State/ZIP CodePhone Number MANUALLY TRANSCRIBED RESULTS documented in this encounter Visit Diagnoses Diagnosis Urge urinary incontinence- Primary Urge incontinence Cystocele with second degree uterine prolapse History of reconstructive repair of rectocele Cystocele with second degree uterine prolapse documented in this encounter Care Teams Team MemberRelationshipSpecialtyStart DateEnd Date Pascale Arana, SENIOR PHARMACY TECHNICIAN-CORE FITTER [address] [place] [address] PCP - GeneralNurse Practitioner04/02/25documented as of this encounter
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
--- OUTSIDE RECORDS SUMMARY | 2025-06-02 07:38 | XMS_ITS | Patient Health Record ---
Author Organization [facility] Address [address] [address], [facility] [place] [address] Care Team Providers Care Blind Aide Name Role Phone SuMathew sal Unavailable [phone] Allergies Allergen (clinical drug ingredient) Drug/Non Drug [...] at bedtime as needed Orally Once a optAjxnqfIfdoaeth49/22/2025Active Vitamin B125ActiveMeloxicam 15 MG Tablet1 tablet Orally daily; Duration: 30 days5ActiveVraylar 3 MG CapsuleOral; Duration: 30 Days ActiveAllegraActiveDetrol LA5164KswjwpXebizzix14/22/2025Active Social History Section Notes: Patient is a current smoker. No alcohol use. 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 Lives in [place], risk due to limited sun exposure. - [...] Date Coverage End Date [employer] [address] [address] [place] [address] [id number] Kenyon Mercado - patient is the insured Medical (General) History Medical History History ICD Code GERD
--- OUTSIDE RECORDS SUMMARY | 2025-06-02 07:38 | XMS_ITS | Clinical Summary ---
Author Organization [facility] Address [address] [place] [address] Care Team Providers Care Concrete Mason Name Role Phone Shaikh NITHIN Main Primary Care Provider [phone] Allergies Active AllergyReactionsCriticalityNoted IxgxNdffbtfyHivbjypuhtg32/19/2023 Medications MedicationSigDispense QuantityRefillsLast FilledStart DateEnd DateStatus citalopram [...] InformationValueDate RecordedSex Assigned at BirthNot on fileLegal GpxAslaqi83/29/2022 10:25 PM EDT Gender IdentityNot on fileSexual OrientationNot on file Last Filed Vital Signs Vital SignReadingTime TakenCommentsBlood Grmtyfjt43/6109 3:16 PM EDT Ntwwe9360 3:16 PM EDTTemperature--Respiratory Rate--Oxygen Xytxfinhtp22% 04/07/2023 3:16 PM EDTInhaled Oxygen Concentration--Tvejav862 kg (224 lb) 04/07/2023 3:16 PM XILWahsrz851.1 cm (5' 5 )04/07/2023 3:16 PM EDTBody Mass Index37.28004/07/2023 3:16 PM EDT Plan of Treatment Health MaintenanceDue DateLast DoneCommentsCT Xcdeqsqbnvpi1971Colonoscopy 1971Colorectal Cancer Wsacvqtgh1971FIT-DNA1971FIT1971 FOBT1971 0785Hwlevnuxrwhld1971Depression Iurbarhtz85/13/1983Hepatitis B Vaccines (1 of 3 - 19+ 3-dose series)1990Pneumococcal Vaccine: Pediatrics (0 to 5 Years) and At-Risk Patients (6 to 64 Years) (1 of 2 - PCV)1990Pap Smear1992Adult Xotxhly9804/05/1993Cervical Cancer Pxxrwjhon96/13/2001 HPV/Mdgcdr5604/05/20014653Uwpufuzpa61/13/2011Zoster Vaccines (1 of 2)1COVID- 19 Vaccine (1 [...]
--- OUTSIDE RECORDS SUMMARY | 2025-06-02 07:38 | XMS_ITS | Encounter Summary ---
Author Organization [facility] Address [address] [facility] [place] [address] Care Team Providers Care Electrical Apprentice Name Role Phone Molina De Anda MD Primary Care Provider [phone] Valerie Groves TELEGRAPH INSPECTOR Unavailable [phone] Karime Dias PMHNP- Unavailable + [phone] Encounter Details DateTypeDepartmentCare Team (Latest Contact Info)Kybqcufuhqj10/29/2025Telephone [facility] [address] [facility] [place] [address] [place] [address] Rohan Burns LPC Social History Tobacco UseTypesPacks/DayYears UsedDateSmoking Tobacco: Every PnlKmctxduzmb741.9 Started: 1985Passive Smoke Exposure: PastSmokeless Tobacco: Never Comments:Thinking about quit ting Alcohol UseStandard Drinks/WeekCommentsNot Currently0 (1 standard drink [...] times a week08/07/2023How often do you attend hoahaoism or jain services?Never08/07/2023o you belong to any clubs or organizations such as hoahaoism groups, unions, fraEqualEyes or athletic groups, or school groups?No08/07/2023How often do you attend meetings of the clubs or organizations you belong to?Patient tdpmyjwg16/15/2024re you , , , , never , or living with a partner?Ywnnzpa0508/07/2023 AUDIT-CAnswerDate RecordedQ1: How often do you have [...] at all 08/07/2023HQ-2AnswerDate RecordedPatient Health Questionnaire-2 Score5 01/22/2025[facility] [place] [facility] - Occupational Stress QuestionnaireAnswerDate RecordedDo you feel stress - tense, restless, nervous, or anxious, or unable to sleep at night because yourmind is troubled all the time - these days?To some gqdoye4308/07/2023Exercise Vital SignAnswerDate Recorded On average, how many [...] InformationValueDate RecordedSex Assigned at BirthNot on fileLegal CwfGiepzq18/15/2023 7:47 PM EDTGender IdentityNot on fileSexual OrientationNot on filedocumented as of this encounter Miscellaneous Notes * Telephone Encounter - Rohan Burns LPC - 05/21/2025 2:08 PM EDT Clinician spoke to client over the phone, explained resignation, offered transfer/referral options,and warm line phone number. Client shared that she plans to discuss her options further at her nextmedication management appointment. Clinician encouraged client to call [facility] as needed. documented in this encounter Plan of Treatment DateTypeDepartmentCare Team (Latest Contact Info)Bejmbpjthlj29/10/2025 3:00 PM ESTOffice Visit [facility] [address] [facility] [address] [place] [address] Macarena Chang, MATRIX DRIER TENDER-TEST OPERATOR [address] [facility] [address] [place] [address] documented as of this encounter Goals GoalPatient Goal TypeAssociated ProblemsRecent ProgressPatient-Stated?Author Help patient manage antidepressant medication Care PlanPatient on antidepressant monitoring Shaikh Cornell MDdocumented as of this encounter Visit Diagnoses Not on filedocumented in this encounter Additional Health Concerns Active ProblemsNoted DateDiagnosed DatePatient on antidepressant monitoring plan 4AssessmentNoted TimePHQ-9 Depression Total Score: 9:29 AM EDTdocumented as of this encounter Care Teams Team MemberRelationshipSpecialtyStart DateEnd Date Molina De Anda MD PCP - GeneralFamily Medicine02/21/24 Valerie Groves NP Nurse PractitionerFamily Medicine02/21/24 Karime Dias PMHNPTAYLOR [facility] [address] [id number] Nurse Pract[facility]Pr[facility]01/22/25documented as of this encounter
--- OUTSIDE RECORDS SUMMARY | 2025-06-02 07:38 | XMS_ITS | CCD ---
Author Organization [facility] Care Team Providers Care Or Manager Name Role Phone PHYSICIAN, DEFAULT Admitting [...] Dong Consulting Unavailable HILLBASHIR Consulting Unavailable HIGHLANDER, ATWANA Dong Admitting Unavailable HIGHLANDER, TAWANA Dong Attending [...] Attending Unavailable MD Tyson Collazo Attending Provider Neetu WELLER, Molina Primary Care Provider Groves CANDY VENDOR, Angel Luis Unavailable Groves CANDY VENDOR, Angel Luis Unavailable Arun PMHNP-BC, Eunice Unavailable [phone] No Pcp, No Pcp Primary Care Provider UnavailRohan Crooks LPC Unavailable Unavailable Pavithar WELLER, Shun Bowling Attending Provider Pascale Arana Primary Care Provider Molina De Anda MD Primary Care Provider Germain CANDY VENDOR, Angel Luis Unavailable [phone] Sumit WIRE SPIRAL BINDER-GRAIN GRADERPascale Primary Care Provider ANGEL LUIS GROVES Attending Unavailabl e AICHHOLZ, PASCALE Attending Unavailable AICHHOLZ, PASCALE Attending Unavailable AICHHOLZ, PASCALE Attending Unavailable AICHJARRETTZ, PASCALE Attending Unavailable EUNICE DIAS Attending Unavailable DERRICKHHOLZ, PASCALE Referring Unavailable EUNICE DIAS Attending Unavailable DERRICKHCAREY, PASCALE Attending Unavailable ROHAN WATERS Attending Unavailable RADHA WATERSLEY Attending Unavailable EUNICE DIAS Attending Unavailable ROHAN WATERS Attending Unavailable ANGEL LUIS GROVES Attending Unavailabl e DERRICKHCAREY, PASCALE Attending Unavailable Derrickhholantwon CANDY VENDOR-CPascale Primary Care Provider Shun Arshad MD Other Provider Olivier WELLER, Loc Dong Attending Provider Sumit CANDY VENDOR-CPascale Attending Provider Shun Arshad Attending Unavailable Shun Arshad Admitting Unavailable Pascale Arana Primary Care Unavailable Clinton Del Toro APRN Attending Provider Meek WELLER, Flores Gutierrez Attending Unavailable Meek WELLER, Andrius Gutierrez Attending Unavailable Meek WELLER, Flores Gutierrez Attending Unavailable Sumit BAH-Pascale GOMEZ Primary Care Provider JOVON ASIF Attending Unavailable SHELIA MUNIZ Referring Unavailable PASCALE ARANA Primary Care Unavailable JOVON ASIF Attending Unavailable PASCALE ARANA Referring Unavailable PASCALE ARANA Primary Care Unavailable SHELIA MUNIZ Attending Unavailable NO PCP, NO PCP Primary Care Unavailable Shun Arshad MD Attending Provider Sumit CANDY VENDOR-CPascale Primary Care Provider Shun Arshad MD Other Provider Loc Aguayo MD Attending Provider Sumit CANDY VENDOR-CPascale Attending Provider Clinton Del Toro APRN Attending Provider Allergies Allergy ClassificationReported Allergen(s)Allergy TypeDate of OnsetReaction(s) Facility (7 sources)penciclovir; Translations: [penciclovir]Drug Ogtfcab75[place]46[place]19dd[place] (11 sources)Penicillins; Translations: [PENICILLINS]Drug allergy (disorder) 07-62-6711HyqhaPcbThe [facility] (20 sources)Penicillin GDrug Rtslief34-06-7200RxpfjfkLWMR [facility] (20 sources)PenicillinsPropensity to adverse jvcxtomsq50-13-4090LgdchELCY [facility] (5 sources)PenicillinsPropensity to adverse reactions to favk01-27-1487Jpibm [facility] [employer] Work Phone: (1 source)PenicillinsDrug allergy (disorder)76-15-5801IopbxejzsSalem [facility] Medications Current Medications MedicationDrug Class(es)DatesSig (Normalized)Sig (Original)[id number] 200 actuat albuterol 0.09 mg/actuat metered dose inhaler (20 sources)beta2-Adrenergic AgonistStart: 06-31-4036rgjp 1 puff(s) by inhalation every six hours as needed for wheezingStart: 03-25-2025 End: 34-93-1017Dgjfgcpuz Sulfate 90 mcg/actuation HFA aerosol inhaler Discontinued INHALATION March 24, 2025 11:00pm April 01, 2025 10:38am Start: 02-06-2025 End: 96-32-6288chxn 2 puff(s) by inhalation every six hours as neededalbuterol (PROVENTIL HFA;VENTOLIN HFA) 90 mcg/actuation inhaler Inhale 2 puffs every 6 (six) hours as needed. 02/06/2025 03/08/2025 ActiveStart: 01-14-2025 End: 98-76-7312jyzk 2 puff(s) by inhalation every six hours for wheezing albuterol HFA 90 mcg/act inhaler Indications: URTI (acute upper respiratory infection) , Non-recurrent acute suppurative otitis media of both ears without spontaneous rupture of tympanic membranes Inhale 2 puffs every 6 (six) hours if needed for wheezing 8 g 1 02/06/2025 ActiveStart: 02-29-2024 End: 48-85-9853xbsg 2 puff(s) by inhalation every four hours for wheezing albuterol HFA 90 mcg/act inhaler Indications: URTI (acute upper respiratory infection) , Non-recurrent acute suppurative otitis media of both ears without spontaneous rupture of tympanic membranes Inhale 2 puffs every 4 (four) hours if needed for wheezing 18 g 12/20/2024 01/14/2025 DiscontinuedARIPiprazole 10 mg oral tablet (2 sources)Atypical AntipsychoticStart: 92-77-8332svnq 1 tablet by mouth once dailyaripiprazole 10 mg Tab 10 mg = 1 tab(s), Oral, Daily, Refills(s) 0 Start Date: 05/24/23 Status: OrderedARIPiprazole Activecariprazine 4.5 mg oral capsule (20 sources)Atypical AntipsychoticStart: 04-03-2025 End: 84-41-8024owno 1 capsule by mouth once dailyStart: 04-01-2025 End: 73-68-1908tmqm 1 capsule by mouth once dailyCariprazine HCl (Vraylar) 1.5 MG capsule Indications: Severe episode of recurrent major depressive disorder, without psychotic features (HCC) Take 1 capsule by mouth Daily for 3 days 3 capsule 04/01/2025 04/03/2025 DiscontinuedStart: 02-24-2025 End: 64-47-6298Udtyphehbdd (Vraylar) 3 mg capsule Discontinued MG PO March 24, 2025 11:00pm April 2659:23amStart: 01-22-2025 End: 43-05-4514mffg 1 capsule by mouth once dailyCariprazine HCl (Vraylar) 1.5 MG capsule Indications: Severe episode of recurrent major depressive disorder, without psychotic features (HCC) Take 1.5 mg by mouth Daily 30 capsule 01/22/2025 02/24/2025 Discontinuedcholecalciferol 0.125 mg oral capsule (5 sources)Vitamin DStart: 30-91-0533dxah 1 capsule by mouth once dailyStart: 90-04-7248Oxgbqwdg 30 mg Cap-DR (2 sources)Start: 36-67-6925hxuo 1 capsule by mouth once dailyCymbalta 30 mg Cap-DR = 1 cap(s), Oral, Daily, Refills(s) 0 Start Date: 05/24/23 Status: Ordered DULoxetine 60 mg delayed release oral capsule (20 sources)Serotonin and Norepinephrine Reuptake InhibitorStart: 03-13-2024 End: 91-17-6121sxok 1 capsule by mouth at bedtimeStart: 02-29-2024 End: 31-57-8408vlrn 1 capsule by mouth in the morningStart: 07-03-2023 End: 67-54-1178tobk 1 capsule by mouth in the morningDULoxetine (Cymbalta) [address] capsule Indications: Fibromyalgia Take 1 capsule (60 mg) by mouth inthe morning. 30 capsule 2 07/03/2023 10/01/2023 Activeestradiol 0.1 mg/ml vaginal cream (20 sources)EstrogenStart: 60-88-8770Eyhvz: 65-61-3521odmyclcnZ (ESTRACE) 0.01 % (0.1 mg/gram) vaginal cream Indications: Cystocele with second degree uterine prolapse , History of reconstructive repair of rectocele , Urge urinary incontinence Apply peasized amount ( 1.5 g) to vaginal introitus nightly for 4 weeks then 1-2 times per week thereafte 42.5 g 2 02/06/2025 ActiveStart: 69-37-9670gcuyyjztl (Estrace) 0.1 MG/GM vaginal cream Insert 1.5 g into the vagina 2 (two) times a week 02/06/2025 Activeeszopiclone 1 mg oral tablet (3 sources)Start: 04-10-2024 End: 28-66-1956bvhx 1 tablet by mouth at bedtimeeszopiclone (Lunesta) 1 MG tablet Indications: Psychophysiological insomnia Take 1 tablet (1 mg) bymouth at bedtime Take immediately before bedtime 30 tablet 2 04/10/2024 05/27/2024 Discontinued (Ineffective)ferrous sulfate 325 mg oral tablet (2 sources)Start: 14-85-5229nayx 1 tablet by mouth once dailyferrous sulfate 325 mg Tab 325 mg = 1 tab(s), Oral, Daily, Refills(s) 0 Start Date: 05/24/23 Status: Orderedfluconazole 150 mg oral tablet (1 source)Azole AntifungalStart: 08-14-2023 End: 97-14-0370bhem 1 tablet by mouth every weekfluconazole (Diflucan) 150 MG tablet Indications: Antibiotic-induced yeast infection Take 1 tablet (150 mg) by mouth 1 (one) time per week for 14 days 2 tablet 0 08/14/2023 08/28/2023 Active fluticasone propionate 0.05 mg/actuat metered dose nasal spray (20 sources)CorticosteroidStart: 30-25-5879Kqbpr: 92-86-7259oyut 2 spray(s) nasal route in the morningfluticasone propionate (FLONASE) 50 mcg/actuation nasal spray Administer 2 sprays into each nostrilin the morning. 11/18/2024 ActiveStart: 08-12-2024 End: 53-92-0880erebjntub 667 mg/ml oral solution (4 sources)Osmotic LaxativeStart: 03-06-2024 End: 99-13-2083iebe 20 g by mouth at bedtimelactulose (Chronulac) 10 GM/15ML solution Indications: Constipation, unspecified constipation type Take 30 mL (20 g) by mouth in the morning and 30 mL (20 g) before bedtime. Do all this for 10 days. 600 mL 03/06/2024 03/16/2024 Wgurwn66 hr mirabegron 50 mg extended release oral tablet (4 sources)beta3-Adrenergic AgonistStart: 29-68-1004lkrh 1 tablet by mouth once dailyStart: 64-82-2452prsd 1 tablet by mouth every twenty-four hours [...] tablet (20 sources)Proton Pump InhibitorStart: 11-20-2024 End: 35-19-1874iedb 1 tablet by mouth once dailypantoprazole (ProtoNix) 40 MG EC tablet Indications: Gastroesophageal reflux disease, unspecified whether esophagitis present Take 1 tablet (40 mg) by mouth Daily Do not crush, chew, or split. 90 tablet 11/20/2024 02/26/2025 Discontinued (Ineffective)Start: 02-29-2024 End: 65-01-8214qjzn 1 tablet by mouth once dailypantoprazole (ProtoNix) 40 MG EC tablet Indications: Gastro-esophageal reflux disease without esophagitis Take 1 tablet (40 mg) by mouth Daily 90 tablet 02/29/2024 08/12/2024 Discontinued (Therapy completed)pregabalin (1 source)Pregabalin Activesucralfate 1000 mg oral tablet (20 sources)Aluminum ComplexStart: 14-90-7827azpb 1 tablet by mouth once before mealtimeStart: 02-26-2024 End: 91-08-9663ftuv 1 tablet by mouth every six hours as neededsucralfate (Carafate) 1 g tablet Take 1 g by mouth every 6 (six) hours if needed 02/26/2024 08/12/2024 Discontinued (Therapy completed)sulfamethoxazole 800 mg / trimethoprim 160 mg oral tablet (11 sources)Dihydrofolate Reductase Inhibitor Antibacterial, Sulfonamide AntimicrobialStart: 11-14-2024 End: 31-18-0364tgbm 1 tablet by mouth every twelve hours for urinary tract infection and urinary tract infectionsulfamethoxazole-trimethoprim (Bactrim DS) 800-160 MG per tablet Indications: UTI (urinary tract infection), uncomplicated Take 1 tablet by mouth every 12 (twelve) hours for 7 days 14 tablet 11/14/2024 11/21/2024 ActiveSyringe 22G X 3/4 3 ML misc (1 source)Start: 08-14-2023 End: 91-01-7819Xhxiccy 22G X 3/4 3 ML misc Indications: B12 deficiency 1 each every 7 (seven) days 4 each 0 08/14/2023 09/13/2023 Activevitamin b12 1 mg oral tablet (20 sources)Vitamin W43Zetxi: 43-28-7521avmu 1 tablet by mouth once dailyStart: 58-05-6648ljynxu 1000 ug by intramuscular injection every week, then inject 1000 ug by intramuscular injection every monthCyanocobalamin (B-12 Compliance Injection) 1000 MCG/ML kit Indications: B12 deficiency 1000 mcg injection IM injections once weekly for 4 weeks, then 1000 mcg IM injection once a month 6 kit 0 08/04/2023 ActiveStart: 07-04-2023 End: 95-92-1047hiqz 1 tablet by mouth in the morningcyanocobalamin (Vitamin B- 12) 1000 MCG tablet Indications: B12 deficiency Take 1 tablet (1,000 mcg)by mouth in the morning. 30 tablet 2 07/04/2023 10/02/2023 Activezolpidem tartrate 10 mg oral tablet (20 sources)gamma-Aminobutyric Acid-ergic AgonistStart: 15-24-6932hdtz 1 tablet by mouth at bedtime as needed for sleepStart: 07-29-2024 End: 34-81-7775zmxp 1 tablet by mouth once daily as neededzolpidem (AMBIEN) 10 mg tablet Take 1 tablet (10 mg total) by mouth daily as needed. 11/18/2024 Acti veStart: 02-29-2024 End: 34-77-4340edtnpsqe (Ambien) 10 MG tablet Indications: Psychophysiological insomnia Take 1 tablet (10 mg) by mouth as needed at bedtime for sleep 30 tablet 06/25/2024 07/25/2024 Discontinued (Reorder)Start: 07-04-2023 End: 82-65-4017fkbqndbx (Ambien) 10 MG tablet Indications: Psychophysiological insomnia Take 1 tablet (10 mg) by mouth as needed at bedtime for sleep 30 tablet 2 07/04/2023 10/02/2023 Active Completed/Discontinued Medications MedicationDrug Class(es)DatesSig (Normalized)Sig (Original)azithromycin 250 mg oral tablet (8 sources)Macrolide AntimicrobialStart: 08-12-2024 End: 91-43-0155abppshpqlujc (Zithromax) 250 MG tablet Indications: Acute non- recurrent maxillary sinusitis 2 pillsday #1, 1 pill day #2-#5 6 tablet 08/12/2024 09/04/2024 Discontinuedcitalopram 40 mg oral tablet (20 sources)Serotonin Reuptake InhibitorStart: 02-29-2024 End: 77-68-8815nmkv 1 tablet by mouth in the morningcitalopram (CeleXA) 40 MG tablet Indications: Bipolar disorder with severe depression (HCC) Take 1 tablet (40 mg) by mouth in the morning. 90 tablet 1 11/20/2024 01/06/2025 Discontinued (Therapy completed)Start: 08-14-2023 End: 47-49-7956mryv 1 tablet by mouth in the morningcitalopram (CeleXA) 40 MG tablet Indications: Bipolar disorder with severe depression (CMS/HCC) Take 1 tablet (40 mg) by mouth in the morning. 90 tablet 0 08/28/2023 11/26/2023 Active Citalopram Hydrobromide Activecyclobenzaprine hydrochloride 10 mg oral tablet (20 sources)Muscle RelaxantStart: 01-20-2025 End: 39-41-4674Waxaehlnrekccgu 10 mg tablet Discontinued MG PO March 24, 2025 11:00pm April 26, 2025 9:25amesomeprazole 40 mg granules for oral suspension (1 source)Proton Pump InhibitorStart: 05-05-2025 End: 15-67-5560fizs 40 mg by mouth once dailyEsomeprazole Magnesium (Nexium Packet) [address] for susp in packet Discontinued 40 MG PO Daily 30 30 2 May 04, 2025 11:00pm May 26, 2025 1:38pmfexofenadine hydrochloride 180 mg oral tablet (20 sources)Histamine-1 Receptor AntagonistStart: 02-29-2024 End: 40-93-4011Qjzjflvmdwyz 180 mg tablet Discontinued MG PO March 24, 2025 11:00pm April 07, 2025 7:37pmStart: 57-97-0684mtyn 1 tablet by mouth once dailyAllegra D OTC 24HR 1 tab(s), Oral, Daily, Refill(s) 0 Start Date: 06/07/23 Status: Orderedtake 1 tablet by mouth in the morningfexofenadine (Layla Allergy) 180 MG tablet Take 180 mg by mouth in the morning. 0 Activegabapentin 300 mg oral capsule (20 sources)Anti-epileptic AgentStart: 11-18-2024 End: 27-62-3855Nhaqmgtzdl 300 mg capsule Discontinued MG PO March 24, 2025 11:00pm April 26, 2025 9:25amStart: 06-11-2024 End: 28-91-6892ltxz 1 capsule by mouth in the morning, [...] mg oral tablet (20 sources)Start: 02-26-2024 End: 39-58-0272yxur 1 tablet by mouth every six hours as neededhyoscyamine (Anaspaz,Levsin) 0.125 MG tablet Take 0.125 mg by mouth every 6 (six) hours if needed 02/26/2024 08/12/2024 Discontinued (Therapy completed)lamoTRIgine 25 mg oral tablet (19 sources)Mood Stabilizer, Anti-epileptic AgentStart: 01-22-2025 End: 73-95-6584pzfvNJPbtwi (LaMICtal) 25 MG tablet Indications: Bipolar disorder with severe depression (HCC) Take1 tablet (25 mg) by mouth Daily for 7 days 1 pill at bedtime for 7 weeks then stop medication 01/22/2025 02/24/2025 Discontinued (Therapy completed)Start: 01-06-2025 End: 95-07-9838bdzmWCEnqrp (LaMICtal) 25 MG tablet Indications: Bipolar disorder with severe depression (HCC) 1 pill at bedtime for 2 weeks, then increase to 1 pill twice a day 60 tablet 01/06/2025 Activelansoprazole 30 mg delayed release oral capsule (20 sources)Proton Pump InhibitorStart: 12-21-2024 End: 06-00-1781gzuhrqacaslg (Prevacid) [address] capsule Take 15 mg by mouth in the morning. Take before meals. 12/21/2024 01/06/2025 Discontinued (Therapy completed)Start: 05-24-2023 End: 02-12-0362Rahjptgxojyq 30 mg capsule,delayed release(DR/EC) Discontinued MG PO March 24, 2025 11:00pm May 26, 2025 1:39pmLansoprazole Active magnesium citrate 58.2 mg/ml oral solution (20 sources)Start: 02-26-2024 End: 88-35-2471dfgo 296 mL by mouth once dailyCVS Magnesium Citrate oral solution Take 296 mL by mouth Daily 02/26/2024 08/12/2024 Discontinued (Therapy completed)meloxicam 15 mg oral tablet (20 sources)Nonsteroidal Anti-inflammatory DrugStart: 10-02-2024 End: 98-91-2836Hfgftfuty 15 mg tablet Discontinued MG PO March 24, 2025 11:00pm May 26, 2025 1:39pmMeloxicam Activeondansetron 4 mg disintegrating oral tablet (20 sources)Serotonin-3 Receptor AntagonistStart: 02-26-2024 End: 47-17-9035rbvu 1 tablet by mouth every four hours as needed for nausea ondansetron ODT (Zofran-ODT) 4 MG disintegrating tablet Take 4 mg by mouth every 4 (four) hours if needed for nausea 02/26/2024 08/12/2024 Discontinued (Therapy completed)24 hr oxybutynin chloride 10 mg extended release oral tablet (20 sources)Cholinergic Muscarinic Antagonist End: 17-95-9731chkb 1 tablet by mouth every twenty-four hours in the morning oxybutynin XL (Ditropan XL) 10 MG 24 hr tablet Take 10 mg by mouth in the morning. 08/12/2024 Discontinued (Therapy completed)phentermine hydrochloride 37.5 mg oral tablet (20 sources)Sympathomimetic Amine AnorecticStart: 07-31-2024 End: 77-84-1992beyd 1 tablet by mouth before mealtimephentermine (Adipex-P) 37.5 MG tablet Indications: BMI 32.0-32.9,adult , Class 1 obesity due to excess calories without serious comorbidity in adult, unspecified BMI Take 1 tablet (37.5 mg) by mouth in the morning. Take before meals. 30 tablet 11/20/2024 01/06/2025 Discontinued (Therapy completed)polyethylene glycol 3350 38159 mg powder for oral solution (9 sources)Osmotic LaxativeStart: 02-28-2024 End: 32-47-2175obfqluuiqedx glycol, PEG, 3350 (MiraLax) 17 GM/SCOOP powder Indications: Constipation, unspecified constipation type Take 17 g by mouth Daily 578 g 2 02/28/2024 06/09/2024 Expiredsod sulf-pot chloride-mag sulf 1.479-0.188- 0.225 gram tablet (3 sources)Start: 02-13-2023 End: 29-98-1101hdt sulf-pot chloride-mag sulf 1.479-0.188- 0.225 gram tablet See instructional sheet given by office. Patient was given a [employer] coupon voucher to use, this is not to be ran through patients insurance. 24 tablet 02/13/2023 2025 DiscontinuedStart: 36-44-2273vaq sulf-pot chloride-mag sulf 1.479-0.188- 0.225 gram tablet See instructional sheet given by office. Patient was given a [employer] coupon voucher to use, this is not to be ran through patients insurance. 24 tablet 02/13/2023 Qqmoef54 hr tolterodine tartrate 4 mg extended release oral capsule (20 sources)Cholinergic Muscarinic AntagonistStart: 12-21-2024 End: 44-70-4849awjx 1 capsule by mouth every twenty-four hoursTolterodine 4 mg capsule,extended release 24hr Discontinued MG PO March 24, 2025 11:00pm May 05, 2025 1:25pmStart: 05-24-2023 End: 48-55-1140gytt 1 capsule by mouth once dailytolterodine LA (Detrol LA) 4 MG 24 hr capsule Take 4 mg by mouth Daily 12/21/2024 ActiveTolterodine Tartrate ER Active Problems Active Problems Problem ClassificationProblemDateDocumented DateEpisodic/ChronicAbdominal pain (20 sources)Left upper quadrant pain; Translations: [Left upper quadrant pain] Onset: 80-63-9629KvvkphwvWeqoiod disorders (20 sources)Anxiety; Translations: [Generalized anxiety disorder]Onset: 171803-79-2376YnctinhPhbckcg dysrhythmias (2 sources)Palpitations; Translations: [Palpitations]Onset: 61-30-7068Eyfzddwn Deficiency and other anemia (20 sources)Iron deficiency anemia; Translations: [Iron deficiency anemia, unspecified]Onset: 46-71-2211BtrpzrqwRgiugnovak and other anemia (10 sources)Iron deficiency anemia secondary to inadequate dietary iron intake; Translations: [Other iron deficiency anemias]93-82-2381TezzdkzrCiuztnlmcc disorders (20 sources)Gastroesophageal reflux disease; Translations: [Gastro-esophageal reflux disease without esophagitis]Onset: 533269-72-6646PibpxppNfgffgjlxc disorders (1 source)Esophageal disordersGenitourinary symptoms and ill-defined conditions (8 sources)Urge incontinence of urine; Translations: [Urge incontinence]Onset: 003136-39-7294CtrrplkBntadhhslqfhw symptoms and ill-defined conditions (1 source)Incomplete emptying of bladder; Translations: [Retention of urine, unspecified]71-93-5313AuvxnzrhNnobxshu; including migraine (20 sources)Menstrual status migrainosus; Translations: [Menstrual migraine, not intractable, with status migrainosus]Onset: 072928-90-4323XcfiwcbOolzocs and fatigue (20 sources)Malaise and fatigue; Translations: [Other malaise]Onset: 08-12-2024 07-97-6543WhfbehskEhknjbugke disorders (20 sources)Menopausal flushing; Translations: [Menopausal and female climacteric states]Onset: 105349-74-2387WrllcguYcshuebevwdve mental health disorders (20 sources)Psychophysiologic insomnia; Translations: [Psychophysiologic insomnia]Onset: 231474-48-6662YclvuxqKbnb disorders (20 sources)Bipolar disorder; Translations: [Bipolar affective disorder, current episode depression]Onset: 07-04-2023 Resolved: 527915-61-3769GkhxwveUkgdanknhju deficiencies (20 sources)Cobalamin deficiency; Translations: [Deficiency of other specified B group vitamins]Onset: 172806-60-3173JtzwqylbDmrpkcohauhtab (5 sources)Primary osteoarthritis, left ankle and foot; Translations: [PRIMARY OSTEOARTHRITIS LT ANK FOOT]Onset: 63-34-2789StrpebqQqgrv acquired deformities (1 source)Contracture, left ankle; Translations: [CONTRACTURE LEFT ANKLE]Onset: 86-98-5677KynbfsnSrlfj aftercare (1 source)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; Translations: [OTH PAEDIATRIC PHYSIOTHERAPIST CURRENT DRUG THERAPY]Onset: 31-42-7695QdlbhddwHtalc connective tissue disease (4 sources)Pain in left foot; Translations: [PAIN IN LEFT FOOT]Onset: 05-31-2022 EpisodicOther connective tissue disease (20 sources)Fibromyalgia; Translations: [Fibromyalgia]Onset: 07-04-2023 50-44-1924HiyqyfxaYqnsy connective tissue disease (20 sources)Plantar fasciitis of right foot; Translations: [Plantar fascial fibromatosis]Onset: 040798-03-8087VpkkkihqRqxqw diseases of bladder and urethra (20 sources)Overactive bladder; Translations: [Overactive bladder]Onset: 11-13-2023 Resolved: 017324-22-8976QandxpuYatqm diseases of bladder and urethra (20 sources)Detrusor overactivity; Translations: [Overactive bladder]Onset: 215838-72-9400AkcgtcjCqulr diseases of bladder and urethra (20 sources)Overactive bladder due to prolapse of female genital organ; Translations: [Overactive bladder]Onset: 654679-74-2634SdgjgraIqlch gastrointestinal disorders (2 sources)Bariatric surgery status; Translations: [BARIATRIC SURGERY STATUS] Onset: 71-90-2908TaxqmxaiNyjso gastrointestinal disorders (20 sources)History of bypass of stomach; Translations: [Bariatric surgery status]Onset: 311537-89-9166PcpnvjkaLzfex gastrointestinal disorders (1 source)Constipation, unspecified; Translations: [Constipation, unspecified] Onset: 38-48-9776BvegfhtoCprkl gastrointestinal disorders (20 sources)Constipation; Translations: [Constipation, unspecified]Onset: 485975-02-9051IrlluohaIlmjs gastrointestinal disorders (20 sources)History of gastrointestinal bleed; Translations: [Personal history of other diseases of the digestive system]Onset: 861989-48-8834Tqxksxsn Other gastrointestinal disorders (4 sources)Abdominal bloating; Translations: [Abdominal distension (gaseous)] 07-70-7191TsyhhwhvCeuxm lower respiratory disease (2 sources)Other forms of dyspnea; Translations: [Other forms of dyspnea]Onset: 58-44-1924BfsbxwfuAnvhy lower respiratory disease (4 sources)Dyspnea; Translations: [Shortness of breath]45-94-0804DweloyfaCeowm nervous system disorders (8 sources)Carpal tunnel syndrome of right wrist; Translations: [Carpal tunnel syndrome, right upper limb]13-10-0672DxnbmuqRzvoc nervous system disorders (8 sources)Right-sided piriformis syndrome; Translations: [Lesion of sciatic nerve, right lower limb]42-79-3009PcdyeyzVlolj nervous system disorders (1 source)Carpal tunnel syndrome, right upper limb; Translations: [Carpal tunnel syndrome, right upper limb]Onset: 28-55-8219OwqkvyiRxlxg non-traumatic joint disorders (1 source)Osteophyte, left foot; Translations: [OSTEOPHYTE LEFT FOOT]Onset: 77-05-9602GnhurteeVzzza nutritional; endocrine; and metabolic disorders (2 sources)Obesity, unspecified; Translations: [Obesity, unspecified]Onset: 14-29-2572PzfyofsSzsbm nutritional; endocrine; and metabolic disorders (20 sources)Body mass index 30+ - obesity; Translations: [Body mass index (BMI) 34.0-34.9, adult]Onset: 07-31-2024 Resolved: 828897-56-9336GiqxjgqRkhzd nutritional; endocrine; and metabolic disorders (2 sources)Jkptscg12-44-7922AtayiulWrbuc nutritional; endocrine; and metabolic disorders (20 sources)Obesity caused by energy imbalance; Translations: [Class 1 obesity due to excess calories without serious comorbidity in adult, unspecified BMI] Onset: 109797-36-9991YlbwsreCdvpa screening for suspected conditions (not mental disorders or infectious disease) (20 sources)Abnormal electrocardiogram [ECG] [EKG]; Translations: [Patient encounter status]Onset: 02-08-2023 Resolved: 65-06-2905YtpapnobAiisw upper respiratory disease (20 sources)Allergic disposition; Translations: [Other allergic rhinitis]Onset: 808436-88-6699FtvlmftJytpf upper respiratory disease (2 sources)Seasonal allergy; Translations: [Other seasonal allergic rhinitis] 30-17-4561EcdxqctOdcxwabais and visceral atherosclerosis (3 sources)Peripheral vascular disease, unspecified; Translations: [Peripheral vascular disease]Onset: 809787-09-6797WdzfmdwWxltyedj of female genital organs (20 sources)Disorder of rectum; Translations: [Rectocele]Onset: 06-30-2023 30-53-9098IsmyiyfJlejscoo codes; unclassified (20 sources)Sleep apnea; Translations: [Sleep apnea, unspecified]Onset: 406274-35-2844VdbkfovNwpswswu codes; unclassified (1 source)Acquired absence of other specified parts of digestive tract; Translations: [ACQ ABSENCE OTH PART DIGESTV TRACT]Onset: 24-60-8847Vehiibvw Residual codes; unclassified (2 sources)Localized edema; Translations: [Localized edema]Onset: 02-08-2023 EpisodicResidual codes; unclassified (1 source)Other specified postprocedural states; Translations: [Other specified postprocedural states]Onset: 48-26-8522CcolusxgXasuxwsfigi; intervertebral disc disorders; other back problems (20 sources)Lumbosacral stenosis; Translations: [Spinal stenosis, lumbosacral region]Onset: 594376-03-5540TzkexsfoUctjslyky-hxlgcrh disorders (20 sources)Nicotine dependence, cigarettes, uncomplicated; Translations: [Nicotine dependence, unspecified, uncomplicated]Onset: 03-22-2022 Resolved: 07-83-0460SjjfifqXtfwizahjdio (4 sources)CONTACT W/AND (SUSP) EXPOS COVID-19; Translations: [CONTACT W/AND (SUSP) EXPOS COVID-19]Onset: 71-78-6429Hxszoyyiptle (2 sources)History of bypass of wmiragp24-23-7049Yfgieyzazrjv (20 sources)Patient on antidepressant monitoring planOnset: Unclassified (1 source)ProcedureOnset: 83-93-0847Pxtgubnporpi (1 source)New PatientOnset: 02-06-2025 Past or Other Problems Problem ClassificationProblemDateDocumented DateEpisodic/ChronicAdjustment disorders (20 sources)Stress and adjustment reaction; Translations: [Reaction to severe stress, unspecified]Onset: 03-18-2024 Resolved: 70-26-9134SujdvelJingxagwtkdijv/social admission (20 sources)Stress; Translations: [Finding relating to psychosocial functioning] Onset: 08-12-2024 Resolved: 036172-11-8995WoezdukhGvettzeh; convulsions (20 sources)Neurological finding; Translations: [Unspecified convulsions]Onset: 01-22-2024 Resolved: 405236-35-1910IyznyjqqTsxumjfhbvutd and screening for infectious disease (1 source)Contact with and (suspected) exposure to other viral communicable diseasesOnset: 08-30-2021 Resolved: 55-70-3253GrqhipovLscaysheo disorders (20 sources)Menorrhagia; Translations: [Excessive and frequent menstruation with regular cycle]Onset: 06-30-2023 Resolved: 926446-39-1176VihfljmRwua disorders (20 sources)Mood disordersOnset: 08-03-2023 Resolved: 535459-15-4768Xntlxpx (20 sources)Opportunistic mycosis; Translations: [Candidiasis, unspecified] Onset: 890031-09-4353HgevhnnlGrbul circulatory disease (1 source)Other specified symptoms and signs involving the circulatory and respiratory systems; Translations:[OTH SPEC SX SIGNS INVLV CIRC RS]Onset: 37-30-6701OzejesieXokvk female genital disorders (20 sources)Female genital organ symptoms; Translations: [Unspecified condition associated with female genital organs and menstrual cycle]Onset: 08-12-2024 Resolved: 034325-53-2324QfqrswwmQkjpf upper respiratory infections (20 sources)Acute upper respiratory infection, unspecified; Translations: [Acute upper respiratory infection]Onset: 08-30-2021 Resolved: 68-40-5447OiotuneyFilfje media and related conditions (20 sources)Acute suppurative otitis media without spontaneous rupture of ear drum; Translations: [Acute suppurative otitis media without spontaneous rupture of ear drum, bilateral]Onset: 01-08-2024 Resolved: 320216-34-2985CrvlfjfbHhzlfdva codes; unclassified (20 sources)Insomnia; Translations: [Insomnia, unspecified]Onset: 07-04-2023 53-76-6369OblqgocvJvcb and subcutaneous tissue infections (20 sources)Abscess of groin; Translations: [Cutaneous abscess of groin]Onset: 08-15-2023 Resolved: 168743-57-8972IbyrrweaKafmlzjviaaj (1 source)CONTACT W/AND (SUSP) EXPOS COVID-19; Translations: [CONTACT W/AND (SUSP) EXPOS COVID-19]Onset: 44-90-7739Glnyqbiaatzf (20 sources)Smoker; Translations: [Smoking]Onset: 08-12-2024 Resolved: 204647-09-5567Lysbgvb tract infections (20 sources)Urinary tract infectious disease; Translations: [Urinary tract infection, site not specified]Onset: 11-14-2024 Resolved: 392294-78-6402Bblzhilb Results Test NameValueInterpretationReference RangeFacilityMeasure post void residualon 09-43-5380Iofbqk68 mlA[facility] SystemPOCT urinalysis dipstick onlyon 10-03-2293Fmsrbnzgag (U)CLEARProMedica Health System External Poct Urine BloodNegativeRegency Hospital [facility]edo SystemExternal Poct Urine ColorYELLOWProCrystal Clinic Orthopedic Center SystemExternal Poct Urine GlucoseNegativeRegency Hospital [facility] SystemExternal Poct Urine KetonesNegativeRegency Hospital [facility] SystemExternal Poct Urine Leukocyte EsteraseNegativeRegency Hospital [facility] SystemExternal Poct Urine NitriteNegativeRegency Hospital [facility] SystemExternal Poct Urine Pu8MbrDwtzlqCrystal Clinic Orthopedic Center SystemExternal Poct Urine ProteinNegativeRegency Hospital [facility] SystemRegency Hospital [facility] SystemBasophils Auto (Bld) [#/Vol]Ordered By: Pascale Arana on 05-05-2025 Basophils (Bld) [#/Vol]0.1 10 3/uL0.0-0.1FSCCI Hospital [facility]ima Basophils/100 WBC Auto (Bld)Ordered By: Pascale Arana on 62-67-9088Tczhjcqey/100 WBC (Bld)1.1 %0.2-2.0[facility] HospitalCholesterol in LDL Calc [Mass/Vol]Ordered By: Pascale Arana on 77-45-0118Ygnrotblrpk in LDL [Mass/Vol] 52.2 mg/dLSalem City HospitalComment on above:<100 mg/dl TCEVXVG835-230 mg/dl NEAR OR ABOVE NKLXTEZ240-846 mg/dl BORDERLINE XYLE787-259 mg/dl HIGH>190 mg/dl VERY HIGHCholesterol in VLDL Calc [Mass/Vol]Ordered By: Pascale Arana on 04-61-6287Pxoqqjdliar in VLDL [Mass/Vol]12.8 mg/dLSalem City HospitalEosinophils/100 WBC Auto (Bld)Ordered By: Pascale Arana on 16-10-7885Rjlgdrgjusg/100 WBC (Bld)6.2 %0.9-7.0[facility] HospitalErythrocyte distribution width Auto (RBC) [Ratio]Ordered By: Pascale Arana on 80-04-3769Fmdyhsrjnks distribution width (RBC) [Ratio]12.6 %11.0-15.0 [facility] HospitalGlobulin Calc (S) [Mass/Vol]Ordered By: aPscale Arana on 40-80-2366Omggukjj (S) [Mass/Vol]3.0 g/dLSalem City HospitalGlomerular filtration rate (GFR) estimation in non- AmericanOrdered By: Pascale Arana on 50-46-5962QCK/1.73 sq M.predicted among non-blacks MDRD (S/P/Bld) [Vol rate/Area]mL/min/{1.73_m2}>=60 mL/min/1.73m 2FSCCI Hospital LimaHematocrit Auto (Bld) [Volume fraction]Ordered By: Pascale Arana on 28-82-6592Slmjihrqgu (Bld) [Volume fraction]40.7 %36.0-48.0[facility] HospitalHemoglobin [Mass/volume] in BloodOrdered By: Pascale Arana on 30-38-3593Qypwajzxpg (Bld) [Mass/Vol]13.6 g/dL12.0-16.0[facility] HospitalIron binding capacity [Mass/volume] in Serum or PlasmaOrdered By: Pascale Arana on 20-48-1077Ypaj binding capacity [Mass/Vol]303.0 ug/dL 250.0-450.0[facility] HospitalIron saturation [Mass Fraction] in Serum or PlasmaOrdered By: Pascale Arana on 42-17-1403Ywxs saturation [Mass fraction]27.4 %[facility] HospitalLaboratory - Chemistry and Chemistry - challengeOrdered By: Pascale Arana on 68-11-2694Dikmbpm [Mass/Vol] 3.6 g/dL3.4-5.0[facility] HospitalALP [Catalytic activity/Vol]95 U/I07-666PwsjyczllSalem City HospitalALT [Catalytic activity/Vol]25 U/L 14-59[facility] HospitalAST [Catalytic activity/Vol]23 U/L15-37 [facility] HospitalBilirubin [Mass/Vol]0.3 mg/dL0.2-1.0[facility] HospitalCalcium [Mass/Vol]8.7 mg/dL8.5-10.1FSCCI Hospital LimaChloride [Moles/Vol]105 mmol/K97-301XtsuoyxzpSalem City HospitalCholesterol [Mass/Vol]116 mg/dL<=200[facility] Cholesterol in HDL [Mass/Vol]51 mg/uL28-82QlirxfmntSalem City Hospital Comment on above:> or =60 mg/dl - LOW CARDIOVASCULAR RISK<40 mg/dl - HIGH CARDIOVASCULAR RISKCO2 [Moles/Vol]29.9 mmol/L21.0-32.0[facility] HospitalCreatinine [Mass/Vol]0.62 mg/dL0.55-1.02[facility] Ferritin [Mass/Vol]30.0 ng/mL8.0-252.0[facility] HospitalGFR/1.73 sq M.predicted MDRD (S/P/Bld) [Vol rate/Area]mL/min/{1.73_m2}>=60 mL/min/1.73m 2 [facility] HospitalGlucose [Mass/Vol]77 mg/zV71-823SdmipjghoSalem City HospitalIron [Mass/Vol]83.0 ug/dL50.0-170.0[facility] HospitalPotassium [Moles/Vol]4.0 mmol/L3.5-5.1FSCCI Hospital LimaProtein [Mass/Vol]6.6 g/dL6.4-8.2FOhio State East Hospitalodium [Moles/Vol]144 mmol/N854-785GfywjqeesSalem City HospitalTransferrin [Mass/Vol]251 mg/kJ131-841ZsnmnttnxSalem City HospitalComment on above: Performed at: - [facility] [id number] Director: Hector Franco PhD, Phone: [phone] [Mass/Vol]64 mg/dL<=150[facility] HospitalUrea nitrogen [Mass/Vol]16.0 mg/dL 7.0-18.0[facility] HospitalUrea nitrogen/Creatinine [Mass ratio] 25.8 mg/mgSalem City HospitalBilirubin Ql (U)NegativeNEGATIVE [facility] HospitalGlucose (U) [Mass/Vol]NegativeNEGATIVESalem City HospitalKetones Ql (U)NegativeNEGSelect Medical Cleveland Clinic Rehabilitation Hospital, AvonpH (U)6.0 [pH]5.0-9.0[facility] Hospitalpecific gravity (U) [Rel density]<=1.557Rlpanonn0.005-1.025[facility] Urobilinogen Qn (U)0.2 {Genie'U}/dL0.2-1.0[facility] - Hematology and Cell countsOrdered By: Pascale Arana on 05-05-2025 Immature granulocytes/100 WBC (Bld)0.1 %0.0-0.5FSCCI Hospital [facility]ima Laboratory - Specimen informationOrdered By: Pascale Arana on 05-05-2025 Appearance (U)CLEARCLEARFSCCI Hospital LimaColor (U)LT. YELLOW YELLOWSalem City HospitalLaboratory - UrinalysisOrdered By: Pascale Arana on 66-81-7180Qaahuzffq esterase Test strip Ql (U)NegativeNEGATIVE [facility] HospitalMucus Ql (Urine sed)NONE SEENNONE SEENSalem City HospitalNitrite Ql (U)NegativeNEGATIVESalem City HospitalProtein Ql (U)NegativeNEG/TRACESalem City HospitalLeukocytes [#/volume] corrected for nucleated erythrocytes in Blood by Automated coun Ordered By: Pascale Arana on 56-74-0591TRW corrected for nucl RBC Auto (Bld) [#/Vol]7.0 10 3/uL4.0-11.0[facility] HospitalLymphocytes Auto (Bld) [#/Vol]Ordered By: Pascale Arana on 24-66-8748Hwcouwkwnzl (Bld) [#/Vol]2.7 10 3/uL1.2-3.8[facility] HospitalLymphocytes/100 WBC Auto (Bld) Ordered By: Pascale Arana on 02-12-9224Rbzhyrotvsl/100 WBC (Bld)39.2 %20.5-60.0 [facility] HospitalMCH Auto (RBC) [Entitic mass]Ordered By: Pascale Arana on 09-96-5344VRF (RBC) [Entitic mass]32.2 pg26.7-34.0[facility] HospitalMCHC Auto (RBC) [Mass/Vol]Ordered By: Pascale Arana on 05-05-2025 MCHC (RBC) [Mass/Vol]33.4 g/dL29.9-35.2FSCCI Hospital LimaMCV Auto (RBC) [Entitic vol]Ordered By: Pascale Arana on 60-41-1661BHP (RBC) [Entitic vol]96.4 fL81.0-99.0[facility] HospitalMonocytes Auto (Bld) [#/Vol]Ordered By: Pascale Arana on 00-54-2057Epjxpkkbc (Bld) [#/Vol]0.4 10 3/uL 0.3-0.8[facility] HospitalMonocytes/100 WBC Auto (Bld)Ordered By: Pascale Arana on 31-77-0032Qsqznhvtm/100 WBC (Bld)5.2 %1.7-12.0[facility] HospitalNeutrophils Auto (Bld) [#/Vol]Ordered By: Pascale Arana on 56-03-9913Ppudqerbxqi (Bld) [#/Vol]3.4 10 3/uL1.4-6.5FSCCI Hospital LimaNeutrophils/100 WBC Auto (Bld)Ordered By: Pascale Arana on 65-86-4555Nzvrdcglwra/100 WBC (Bld)48.2 %43.0-75.0[facility] HospitalNo Panel InformationOrdered By: Pascale Arana on 609987-Qkgvpuv Vitamin D Total69.7 ng/mLSalem City HospitalComment on above:<20 ng/mL Vit D gmrdaxxjy61-<30 ng/mL Vit D wedjmpbijecq88-819 ng/mL Vit D sufficient>100 ng/mL Potential ToxicityEosinophils # (Auto)0.4 10 3/uL0.0-0.7 [facility] HospitalImmature Granulocyte # (Auto)0.01 10 3/uL 0.00-0.03[facility] HospitalVitamin B12 Level>2000 pg/mLAbnormal 232-1245[facility] HospitalComment on above:Performed at: - [facility] [address] [id number] Director: Hector Franco PhD, Phone: [phone] BacteriaTRACE #/HPFAbnormalNONE SEEN [facility] HospitalUrine Occult BloodNegativeNEGATIVESalem City HospitalUrine Other CastsNONE SEEN #/LPFNONE SEENSalem City HospitalUrine Other CrystalsNone Seen #/HPFNone SeenSalem City HospitalUrine RBCNONE SEEN #/HPF0-2FSCCI Hospital LimaUrine Squamous Epithelial CellsFEW #/LPFAbnormalNONE/RARESalem City HospitalUrine WBCNONE SEEN #/HPFNONE [facility] HospitalPlatelet mean volume Auto (Bld) [Entitic vol]Ordered By: Pascale Arana on 58-63-7092Yndfntmj mean volume (Bld) [Entitic vol]9.7 fL9.5-13.5 [facility] HospitalPlatelets Auto (Bld) [#/Vol]Ordered By: Pascale Arana on 60-27-7063Gtkkzaaag (Bld) [#/Vol]252 10 3/lF932-778FwbhotpwiSalem City HospitalRBC Auto (Bld) [#/Vol]Ordered By: Pascale Aarna on 61-87-0351SAW (Bld) [#/Vol]4.22 10 6/uL4.20-5.40[facility] Hospitalerum or plasma albumin/globulin mass ratioOrdered By: Pascale Arana on 82-92-5685Rskuyzt/Globulin [Mass ratio]1.2 {ratio}[facility] County Hospitalerum or plasma anion gap determinationOrdered By: Pascale Arana on 38-93-3836Yanoh gap [Moles/Vol]13.1 mmol/LFOhio State East Hospitalerum or plasma total cholesterol/high density lipoprotein (HDL) cholesterol mass rat Ordered By: Pascale Arana on 16-78-3646Thnduuhpldf.total/Cholesterol in HDL [Mass ratio]2.3 {ratio}[facility] HospitalComment on above:3.3 - 4.4 LOW RISK4.4 - 7.1 AVERAGE RISK7.1 - 11.0 MODERATE RISK>11.0 HIGH RISKALL CBC WITH AUTO DIFFon 62-47-0484KKBNACUYF ABSOLUTE AUTO0.1[facility] Basophils/100 WBC (Bld)1.2 %0.2 - 2.0 %[facility] HealthcareEosinophils/100 WBC (Bld) 7.9 %High0.9 - 7.0 %[facility] HealthcareErythrocyte distribution width (RBC) [Ratio] 15.3 %High11.0 - 15.0 %[facility] HealthcareHematocrit (Bld) [Volume fraction]37.2 % 36.0 - 48.0 %[facility] HealthcareHemoglobin (Bld) [Mass/Vol]11.8 g/dLLow12.0 - 16.0 g/dLRipley County Memorial HospitalIMMATURE GRANULOCYTES ABS AUTO0.02NOBarnes-Jewish West County HospitalImmature granulocytes/100 WBC (Bld)0.3 %0.0 - 0.5 %[facility] HealthcareInterpretation and review of laboratory resultsAbnormalNOBarnes-Jewish West County HospitalLYMPHOCYTES ABSOLUTE AUTO2.3 NOM HealthcareLymphocytes/100 WBC (Bld)35.2 %20.5 - 60.0 %[facility] HealthcareH (RBC) [Entitic mass]31.1 pg26.7 - 34.0 pgNOCitizens Memorial HealthcareHC (RBC) [Mass/Vol] 31.7 g/dL29.9 - 35.2 g/dLCitizens Memorial HealthcareV (RBC) [Entitic vol]98.2 fL81.0 - 99.0 fLRipley County Memorial HospitalMONOCYTES ABSOLUTE AUTO0.4NONJ HealthcareMonocytes/100 WBC (Bld)5.5 %1.7 - 12.0 %NOM HealthcareNEUTROPHILS ABSOLUTE AUTO3.3[facility] Neutrophils/100 WBC (Bld)49.9 %43.0 - 75.0 %[facility] HospitalPlatelet mean volume (Bld) [Entitic vol]10 fL9.5 - 13.5 fLNOBarnes-Jewish West County HospitalTBH EO #0.5[facility] TBH [id number] [facility] RBC3.79LowNOPutnam County Memorial Hospital WBC6.6NOBarnes-Jewish West County Hospital [facility] BLOOD PRESSUREon 44-16-5398[address] [address] Cardiology Report Signed Patient: TALIA RUTHERFORD MR#: [id number] : 1970 Acct:[id number] Age/Sex: 54 / F ADM Date: 02/26/25 Loc: CARD Attending Dr: Kajal LAZAR Ordering Physician: Kajal Escobedo Date of Service: 02/26/25 Procedure(s): CA segmental UE or LE PONCE Accession Number(s): [id number] cc: Pascale Arana NP; Kajal Escobedo [facility] Test Date: 2025-02-26 Pat Name: TALIA RUTHERFORD Department: Room: - Gender: Female Record Systems Analyst: Cari Nichole : 1970 Requested By: Kajal Escobedo Order Number: [id number] Reading MD: SCOTT PARKINSON M.D. Interpretive Statements [...] M.D. Dictated By: SCOTT PARKINSON Signed By: 02/27/2590602/27/25906 DD/ 1534 TD/TT: Betting Agency Manager:TBHRadiology, Radiologist, - 02/27/2025 The [place] [id number] Cardiology Report Signed Patient: TALIA RUTHERFORD MR#: [id number] : 1970 Acct:[id number] Age/Sex: 54 / F ADM Date: 02/26/25 Loc: CARD Attending Dr: Kajal LAZAR Ordering Physician: Kajal Escobedo Date of Service: 02/26/25 Procedure(s): CA segmental UE or LE PONCE Accession Number(s): [id number] cc: Pascale Arana NP; Kajal Escobedo [facility] Test Date: 2025-02-26 Pat Name: TALIA RUTHERFORD Department: Room: - Gender: Female Record Systems Analyst: Cari Nichole : 1970 Requested By: Kajal Escobedo Order Number: [id number] Reading MD: SCOTT PARKINSON M.D. Interpretive Statements [...] M.D. Dictated By: SCOTT PARKINSON Signed By: 02/27/2507 02/27/25 09 DD/ 1534 TD/TT: Betting Agency Manager: CHERYL HealthcareSEGMENTAL BLOOD PRESSUREOrdered By: Radiologist Radiology on 10-39-5821[facility] Work Phone: SEGMENTAL BLOOD PRESSUREon 81-59-8799Sutvgndye Study observation (narrative)[facility] HealthcareXR FOOT LT MIN 3Von 14-82-1265Ibt[address] [address] XRay Report Signed Patient: TALIA RUTHERFORD MR#: [id number] : 1970 Acct:[id number] Age/Sex: 54 / F ADM Date: 02/19/25 Loc: RAD Attending Dr: Kajal LAZAR Ordering Physician: Kajal Escobedo Date of Service: 02/19/25 Procedure(s): XR foot LT min 3V Accession Number(s): [id number] cc: Pascale Arana CANDY VENDOR; Kajal Escobedo [place] [id number] Patient Name: TALIA RUTHERFORD MRN: [id number] date: 1970 Sex: F Assigned Patient Location: [facility] Current Patient Location: [facility] Accession/Order Number: [id number] Exam Date: 02/19/2025 10:39 Report Date: 02/19/2025 [...] Jr., D.O. 02/19/2025 3:03 PM Dictation Location: [place] [address] Electronically authenticated by: [id number] Y Date: 02/19/2025 15:03 Dictated By: Merlin Massey M.D. Signed By: 02/19/25 1506 DD/ 1503 TD/TT: Betting Agency Manager:TBHRadiology, Radiologist, - 02/19/[address] [address] XRay Report Signed Patient: TALIA RUTHERFORD MR#: [id number] : 1970 Acct:[id number] Age/Sex: 54 / F ADM Date: 02/19/25 Loc: [facility] Attending Dr: Kajal LAZAR Ordering Physician: Kajal Escobedo Date of Service: 02/19/25 Procedure(s): XR foot LT min 3V Accession Number(s): [id number] cc: Pascale Arana CANDY VENDOR; Kajal Escobedo The [place] [id number] Patient Name: TALIA RUTHERFORD MRN: [id number] date: 1970 Sex: F Assigned Patient Location: [facility] Current Patient Location: [facility] Accession/Order Number: [id number] Exam Date: 02/19/2025 10:39 Report Date: 02/19/2025 [...] Jr., D.O. 02/19/2025 3:03 PM Dictation Location: [place] [address] Electronically authenticated by: [id number] Y Date: 02/19/2025 15:03 Dictated By: Merlin Massey M.D. Signed By: 02/19/25 1506 DD/ 1503 TD/TT: Betting Agency Manager: CHERYL HealthcareRadiology Study observation (narrative)[facility] HealthcareXR FOOT LT MIN 3VOrdered By: Radiologist Radiology on 92-60-6339CX[facility] Work Phone: Cervical spine WO contraston [phone] [address] Magnetic Resonance Report Signed Patient: TALIA RUTHERFORD MR#: [id number] : 1970 Acct:[id number] Age/Sex: 54 / F ADM Date: 02/04/25 Loc: MRI Attending Dr: Flores Eden M.D. Ordering Physician: Flores Eden M.D. Date of Service: 02/04/25 Procedure(s): MR cervical spine wo con Accession Number(s): [id number] cc: Pascale Arana NP; Flores Eden M.D. The [place] [id number] Patient Name: TALIA RUTHERFORD MRN: [id number] date: 1970 Sex: F Assigned Patient Location: MRI Current Patient Location: Accession/Order Number: [id number] Exam Date: 02/05/2025 12:10 Report Date: 02/05/2025 [...] Uncovertebral spurring greatest right. Moderate right and rqqp-yc-zzwtkqcu left-sided neural foraminal narrowing. Mild canal narrowing. C5-6: Broad-based disc bulge with uncovertebral spurring, greatest left. Moderate right-sided moderate to severe left-sided neural foraminal narrowing. Mild central canal stenosis. C6-C7: Broad-based disc osteophyte complex with uncovertebral spurring. Nstt-us-omrcocew right moderate severe left neural foraminal narrowing. Cnnm-xb-padwnwgn canal narrowing. C7-T1: Minimal vertebral hypertrophy. Moderate facet arthropathy. Canal and patent. Mild foraminal narrowing. MR/MR cervical spine wo con IMPRESSION: Overall multilevel degenerative changes with up to fepb-yp-kxrabyli central canal narrowing. Multilevel foraminal encroachment as noted above. Impression dictated by: Mushtaq Antony M.D. 02/05/2025 12:16 PM Dictation Location: [place] [address] Electronically authenticated by: [id number] Date: 02/05/2025 12:16 Dictated By: Mushtaq Antony M.D. Signed By: 02/05/25 1218 DD/ 1216 TD/TT: Betting Agency Manager:TBHRadiology, Radiologist, - 02/05/2025 [place] [address] Magnetic Resonance Report Signed Patient: TALIA RUTHERFORD MR#: [id number] : 1970 Acct:[id number] Age/Sex: 54 / F ADM Date: 02/04/25 Loc: MRI Attending Dr: Flores Eden M.D. Ordering Physician: Flores Eden M.D. Date of Service: 02/04/25 Procedure(s): MR cervical spine wo con Accession Number(s): [id number] cc: Pascale Arana CANDY VENDOR; Flores Eden M.D. The [address] [address] Patient Name: TALIA RUTHERFORD MRN: [id number] date: 1970 Sex: F Assigned Patient Location: MRI Current Patient Location: Accession/Order Number: [id number] Exam Date: 02/05/2025 12:10 Report Date: 02/05/2025 [...] Uncovertebral spurring greatest right. Moderate right and euow-gv-cdwoxomh left-sided neural foraminal narrowing. Mild canal narrowing. C5-6: Broad-based disc bulge with uncovertebral spurring, greatest left. Moderate right-sided moderate to severe left-sided neural foraminal narrowing. Mild central canal stenosis. C6-C7: Broad-based disc osteophyte complex with uncovertebral spurring. Etqm-yu-ccvuclqd right moderate severe left neural foraminal narrowing. Gkph-vp-wgjmxhvb canal narrowing. C7-T1: Minimal vertebral hypertrophy. Moderate facet arthropathy. Canal and patent. Mild foraminal narrowing. MR/MR cervical spine wo con IMPRESSION: Overall multilevel degenerative changes with up to eqfu-wb-gaeaoggj central canal narrowing. Multilevel foraminal encroachment as noted above. Impression dictated by: Mushtaq Antony M.D. 02/05/2025 12:16 PM Dictation Location: [place] [address] Electronically authenticated by: [id number] Y Date: 02/05/2025 12:16 Dictated By: Mushtaq Antony M.D. Signed By: 02/05/25 1218 DD/ 15 TD/TT: Betting Agency Manager: CHERYL HealthcareRadiology Study observation (narrative)[facility] Cervical spine WO contrastOrdered By: Radiologist Radiology on 22-10-2080[facility] Work Phone: LUMBAR SPINE WO CONon [phone] [address] Magnetic Resonance Report Signed Patient: TALIA RUTHERFORD MR#: [id number] : 1970 Acct:[id number] Age/Sex: 54 / F ADM Date: 02/04/25 Loc: MRI Attending Dr: Flores Eden M.D. Ordering Physician: Flores Eden M.D. Date of Service: 02/04/25 Procedure(s): MR lumbar spine wo con Accession Number(s): [id number] cc: Pascale Arana NP; Flores Eden M.D. The [place] [id number] Patient Name: TALIA RUTHERFORD MRN: [id number] date: 1970 Sex: F Assigned Patient Location: MRI Current Patient Location: Accession/Order Number: [id number] Exam Date: 02/05/2025 12:16 Report Date: 02/05/2025 [...] Circumferential disc bulge with moderate facet arthropathy. Njal-ya-smwiwhpj right-sided and mild left-sided neural foraminal narrowing . 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 Impression dictated by: Mushtaq Antony M.D. 02/05/2025 2:18 PM Dictation Location: [place] [address] Electronically authenticated by: [id number] Y Date: 02/05/2025 14:18 Dictated By: Mushtaq Antony M.D. Signed By: 02/05/25 1421 DD/ 1418 TD/TT: [employer] Manager:[facility], Radiologist, - 02/05/2025 [place] [address] Magnetic Resonance Report Signed Patient: TALIA RUTHERFORD MR#: [id number] : 1970 Acct:[id number] Age/Sex: 54 / F ADM Date: 02/04/25 Loc: MRI Attending Dr: Flores Eden M.D. Ordering Physician: Flores Eden M.D. Date of Service: 02/04/25 Procedure(s): MR lumbar spine wo con Accession Number(s): [id number] cc: Pascale Arana CANDY VENDOR; Flores Eden M.D. [address] [place] [id number] Patient Name: TALIA RUTHERFORD MRN: [id number] date: 1970 Sex: F Assigned Patient Location: MRI Current Patient Location: Accession/Order Number: [id number] Exam Date: 02/05/2025 12:16 Report Date: 02/05/2025 [...] Circumferential disc bulge with moderate facet arthropathy. Rvzy-nl-dknjcyvb right-sided and mild left-sided neural foraminal narrowing . 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 Impression dictated by: Mushtaq Antony M.D. 02/05/2025 2:18 PM Dictation Location: [place] [address] Electronically authenticated by: [id number] Y Date: 02/05/2025 14:18 Dictated By: Mushtaq Antony M.D. Signed By: 02/05/25 1421 DD/ 1418 TD/TT: Betting Agency Manager: [facility] HealthcareRadiology Study observation (narrative)[facility] LUMBAR SPINE WO CONOrdered By: Radiologist Radiology on 23-82-3485LDPZ Healthcare Work Phone: all CBC WITH AUTO DIFFon 91-07-1586CXQETQINH ABSOLUTE AUTO0.1NOMS HealthcareBasophils/100 WBC (Bld)1 %0.2 - 2.0 %[facility] Eosinophils/100 WBC (Bld)6.9 %0.9 - 7.0 %[facility] HospitalErythrocyte distribution width (RBC) [Ratio]15.6 %High11.0 - 15.0 %[facility] HealthcareHematocrit (Bld) [Volume fraction]36.2 %36.0 - 48.0 %[facility] HealthcareHemoglobin (Bld) [Mass/Vol] 11.8 g/dLLow12.0 - 16.0 g/dLRipley County Memorial HospitalIMMATURE GRANULOCYTES ABS AUTO0.01 [facility] HealthcareImmature granulocytes/100 WBC (Bld)0.2 %0.0 - 0.5 %[facility] HealthcareInterpretation and review of laboratory resultsAbnormalNOBarnes-[facility] LYMPHOCYTES ABSOLUTE AUTO1.9NOBarnes-Jewish West County HospitalLymphocytes/100 WBC (Bld)32 %20.5 - 60.0 %[facility] HealthcareH (RBC) [Entitic mass]28.6 pg26.7 - 34.0 pgCitizens Memorial HealthcareHC (RBC) [Mass/Vol]32.6 g/dL29.9 - 35.2 g/dLRipley County Memorial HospitalMCV (RBC) [Entitic vol]87.9 fL81.0 - 99.0 fLRipley County Memorial HospitalMONOCYTES ABSOLUTE AUTO0.3NOMS HealthcareMonocytes/100 WBC (Bld)5.4 %1.7 - 12.0 %[facility] HealthcareNEUTROPHILS ABSOLUTE AUTO3.3NOMS HealthcareNeutrophils/100 WBC (Bld)54.5 %43.0 - 75.0 %[facility] HospitalPlatelet mean volume (Bld) [Entitic vol]9.6 fL9.5 - 13.5 fLRipley County Memorial HospitalTBH EO #0.4NOMS HealthcareTB VWN401UACU [facility] RBC4.12LowNOBarnes-Jewish West County HospitalTB WBC6.1NOMS HealthcareCLINISYNCNCORDELL MEMORIAL [facility]ITAL [facility] HealthcareIGP,APTIMA HPV,AGE GDLNon 86-24-6747SUD GDLN ACOG TESTINGNote.[facility] HealthcareComment on above:TESTS RESULT FLAG UNITS REF RANGE LAB Clinician Provided Cytology Information Source.............Cervix;Endocervix No. of containers..01 ThinPrep Vial Age Radha JEAN Fiorella... 3065 01 FLAG LEGEND: L-Low Normal,H-High Normal,LL-Alert Low,HH-Alert High <-Panic Low,>-Panic High,A-Abnormal,AA-Critical Abnormal Performed at: 01 =[address] [address] Monika Norton MD, HPV APTIMAPositiveAbnormalNegativeNOMS HealthcareComment on above:This nucleic acid amplification test detects fourteen high- risk HPV types (16,18,31,33,35,39,45,51,52,56,58,59,66,68) without differentiation. HPV GENOTYPE 16NegativeNegativeNOMS HealthcareHPV GENOTYPE 18,45NegativeNegative NOMS HealthcareComment on above:Performed at: =[address] [id number] Switchboard And Control Room Operator: Monika Norton MD, Phone: [phone] Performed at: [address] [id number] Switchboard And Control Room Operator: Monika Norton MD, Phone: [phone] IGP, APTIMA HPV, RFX 16/18,45Note.NOMS HealthcareComment on above:TESTS RESULT FLAG UNITS REF RANGE LAB DIAGNOSIS: 02 NEGATIVE FOR INTRAEPITHELIAL LESION OR MALIGNANCY. Specimen adequacy: 02 Satisfactory for evaluation. Endocervical and/or squamous metaplastic cells (endocervical component) are present. Performed by: 02 Carrol Guerrero L Tacker . 02 Note: Note 02 The Pap [...] <-Panic Low,>-Panic High,A-Abnormal,AA-Critical Abnormal Performed at: [address] [address] Monika Norton MD, Interpretation and review of laboratory resultsAbnormalRipley County Memorial Hospital BRUSH-ALONE CERVIX ENDOCERVIX CLINISYNCRipley County Memorial HospitalMM TOMOSYNTHESIS SCREENING BIon 84-83-1855[place] [address] Mammography Report Signed Patient: TALIA RUTHERFORD MR#: [id number] : 1970 Acct:[id number] Age/Sex: 54 / F ADM Date: 10/23/24 Loc: MAMMO Attending Dr: Pascale Arana NP Ordering Physician: Pascale Arana NP Results: Date of Service: 10/23/24 Follow Up: Procedure(s): MM tomosynthesis screening BI Accession Number(s): [id number] cc: Pascale Arana NP Patient Name: TALIA RUTHERFORD MR#: [id number] : 1970 Exam Date: 10/23/2024 Ordering Doctor: [...] at age 51. LOCATION: The [facility] BREAST COMPOSITION: There are [...] Signed By: 10/23/24 1555 DD/ 1555 TD/TT: Betting Agency Manager:TBHRadiology, Radiologist, - 10/23/2024 [place] [address] Mammography Report Signed Patient: TALIA RUTHERFORD MR#: [id number] : 1970 Acct:[id number] Age/Sex: 54 / F ADM Date: 10/23/24 Loc: MAMMO Attending Dr: Pascale Arana NP Ordering Physician: Pascale Arana NP Results: Date of Service: 10/23/24 Follow Up: Procedure(s): MM tomosynthesis screening BI Accession Number(s): [id number] cc: Pascale Arana NP Patient Name: TALIA RUTHERFORD MR#: [id number] : 1970 Exam Date: 10/23/2024 Ordering Doctor: [...] at age 51. LOCATION: The [facility] BREAST COMPOSITION: There are [...] Signed By: 10/23/24 1555 DD/ 1555 TD/TT: Betting Agency Manager: CHERYL [facility] HospitalRadiology Study observation (narrative)[facility] TOMOSYNTHESIS SCREENING BIOrdered By: Radiologist Radiology on 73-38-7559USAJRipley County Memorial Hospital Work Phone: all CBC WITH AUTO DIFFon 24-88-0596AQNUYPBMO ABSOLUTE VHNA5BPAD HealthcareBasophils/100 WBC (Bld)0.8 %0.2 - 2.0 %[facility] Eosinophils/100 WBC (Bld)3.9 %0.9 - 7.0 %[facility] HospitalErythrocyte distribution width (RBC) [Ratio]14.2 %11.0 - 15.0 %[facility] HealthcareHematocrit (Bld) [Volume fraction]32.9 %Low36.0 - 48.0 %[facility] HospitalHemoglobin (Bld) [Mass/Vol]10.6 g/dLLow12.0 - 16.0 g/dLNOBarnes-Jewish West County HospitalIMMATURE GRANULOCYTES ABS DWGJ2AYMOBarnes-Jewish West County HospitalImmature granulocytes/100 WBC (Bld)0 %0.0 - 0.5 %[facility] Interpretation and review of laboratory resultsAbnormalNOBarn[facility] LYMPHOCYTES ABSOLUTE AUTO1.6NOBarnes-Jewish West County HospitalLymphocytes/100 WBC (Bld)31.7 %20.5 - 60.0 %[facility] HealthcareH (RBC) [Entitic mass]29.5 pg26.7 - 34.0 pgNOCitizens Memorial HealthcareHC (RBC) [Mass/Vol]32.2 g/dL29.9 - 35.2 g/dLCitizens Memorial HealthcareV (RBC) [Entitic vol]91.6 fL81.0 - 99.0 fLRipley County Memorial HospitalMONOCYTES ABSOLUTE AUTO0.4NONJ HealthcareMonocytes/100 WBC (Bld)7.2 %1.7 - 12.0 %[facility] HospitalNEUTROPHILS ABSOLUTE AUTO2.8NOMS HealthcareNeutrophils/100 WBC (Bld)56.4 %43.0 - 75.0 %[facility] HospitalPlatelet mean volume (Bld) [Entitic vol]10.5 fL9.5 - 13.5 fLRipley County Memorial HospitalTBH EO #0.2NOMS HealthcareTBH AON486ZXWY [facility] HospitalTB RBC3.59LowNOMS Clermont County HospitalTB WBC4.9NONJ HealthcareCLINISYNCNOMS HealthcareCT FOOT LT WO CONon 35-78-9060H[address] [address] [address] Scan Report Signed Patient: TALIA RUTHERFORD MR#: [id number] : 1970 Acct:[id number] Age/Sex: 54 / F ADM Date: 09/09/24 Loc: CT Attending Dr: Tawana Foster D.P.M. Ordering Physician: Tawana Foster D.P.M. Date of Service: 09/09/24 Procedure(s): CT foot LT wo con Accession Number(s): [id number] cc: ANGEL LUIS GROVES [address] [address] Patient Name: TALIA RUTHERFORD MRN: [id number] date: 1970 Sex: F Assigned Patient Location: CT Current Patient Location: CT Accession/Order Number: [id number] Exam Date: 09/09/2024 15:56 Report Date: 09/09/2024 [...] Cruz Meneses M.D. Signed By: 09/09/241741 DD/ 1739 TD/TT: Betting Agency Manager:TBHRadiology, Radiologist, - 09/09/2024 [place] [address] CT Scan Report Signed Patient: TALIA RUTHERFORD MR#: [id number] : 1970 Acct:[id number] Age/Sex: 54 / F ADM Date: 09/09/24 Loc: CT Attending Dr: Tawana Foster D.P.M. Ordering Physician: Tawana Foster D.P.M. Date of Service: 09/09/24 Procedure(s): CT foot LT wo con Accession Number(s): [id number] cc: ANGEL LUIS GROVES The [address] [address] Patient Name: TALIA RUTHERFORD MRN: [id number] date: 1970 Sex: F Assigned Patient Location: CT Current Patient Location: CT Accession/Order Number: [id number] Exam Date: 09/09/2024 15:56 Report Date: 09/09/2024 [...] M.D. Signed By: 09/09/241741 DD/ 38 TD/TT: Betting Agency Manager: [facility] HealthcareRadiology Study observation (narrative)NOMS HealthcareCT FOOT LT WO CONOrdered By: Radiologist Radiology on 99-99-0276UKER Healthcare Work Phone: XR FOOT LT MIN 3Von 98-27-5392Kah[place] [address] XRay Report Signed Patient: TALIA RUTHERFORD MR#: [id number] : 1970 Acct:[id number] Age/Sex: 54 / F ADM Date: 09/04/24 Loc: EC Attending Dr: Tawana Foster D.P.M. Ordering Physician: Tawana Foster D.P.M. Date of Service: 09/04/24 Procedure(s): XR foot LT min 3V Accession Number(s): [id number] cc: NASH GROVES Peter D.P.M. [address] [place] [id number] Patient Name: TALIA RUTHERFORD MRN: [id number] date: 1970 Sex: F Assigned Patient Location: Current Patient Location: Accession/Order Number: [id number] Exam Date: 09/04/2024 15:53 Report Date: 09/05/2024 [...] Signed By: 09/05/24 1019 DD/ 1016 TD/TT: Betting Agency Manager:SILVINAHRadiology, Radiologist, - 09/05/2024 [place] [address] XRay Report Signed Patient: TALIA RUTHERFORD MR#: [id number] : 1970 Acct:[id number] Age/Sex: 54 / F ADM Date: 09/04/24 Loc: EC Attending Dr: Tawana Foster D.P.M. Ordering Physician: Tawana Foster D.P.M. Date of Service: 09/04/24 Procedure(s): XR foot LT min 3V Accession Number(s): [id number] cc: NASH GROVES Peter D.P.M. [address] [place] [id number] Patient Name: TALIA RUTHERFORD MRN: [id number] date: 1970 Sex: F Assigned Patient Location: Current Patient Location: Accession/Order Number: [id number] Exam Date: 09/04/2024 15:53 Report Date: 09/05/2024 [...] Signed By: 09/05/24 1019 DD/ 1016 TD/TT: Betting Agency Manager: NOMScottie HealthcareRadiology Study observation (narrative)NOMS HealthcareXR FOOT LT MIN 3VOrdered By: Radiologist Radiology on 55-64-5055IORJ Healthcare Work Phone: cHRONIC WOUND/ULCER (HTRX)on 64-90-3236YSRFMKBTCRHRE BAUMANNII (CHRONIC WOUND/ULCER)0NOMS HealthcareACINETOBACTER BAUMANNII (CHRONIC WOUND/ULCER)Not detectedNOMS HealthcareBACTEROIDES FRAGILIS, VULGATUS (CHRONIC WOUND/ULCER)0NOMS HealthcareBACTEROIDES FRAGILIS, VULGATUS (CHRONIC WOUND/ULCER) Not detectedNOMS HealthcareCITROBACTER FREUNDII (CHRONIC WOUND/ULCER)0NOMS HealthcareCITROBACTER FREUNDII (CHRONIC WOUND/ULCER)Not detectedNOMS Healthcare CLOSTRIDIUM PERFRINGENS, NOVYI, SEPTICUM (CHRONIC WOUND/ULCER)0[facility] CLOSTRIDIUM PERFRINGENS, NOVYI, SEPTICUM (CHRONIC WOUND/ULCER)Not detectedNOMS HealthcareCORYNEBACTERIUM JEIKEIUM, STRIATUM, TUBERCULOSTEARICUM (CHRONIC WOUND/MOHRT7OWUT HealthcareCORYNEBACTERIUM JEIKEIUM, STRIATUM, TUBERCULOSTEARICUM (CHRONIC WOUND/ULCERNot detectedNOMS HealthcareCUTIBACTERIUM (PROPIONIBACTERIUM) ACNES (CHRONIC WOUND/ULCER)0NOMS HealthcareCUTIBACTERIUM (PROPIONIBACTERIUM) ACNES (CHRONIC WOUND/ULCER)Not detectedNOMS Healthcare ENTEROBACTER CLOACAE COMPLEX, KLEBSIELLA (ENTEROBACTER) AEROGENES ([id number] HealthcareENTEROBACTER CLOACAE COMPLEX, KLEBSIELLA (ENTEROBACTER) AEROGENES (CHRONICNot [...] HealthcareP. ANAEROBIUS, P. ASACCAROLYTICUS, F. MAGNA, A. [id number] HealthcareP. ANAEROBIUS, P. ASACCAROLYTICUS, F. MAGNA, A. [...] Healthcare STAPHYLOCOCCUS EPIDERMIDIS, HAEMOLYTICUS, LUGDUNENSIS, SAPROPHYTICUS (CHRON DetectedAbnormalTOOELE VALLEY [facility]PITAL HealthcareSTREPTOCOCCUS PYOGENES (GROUP A STREP) (CHRONIC WOUND/ULCER)0NOMS HealthcareSTREPTOCOCCUS PYOGENES (GROUP A STREP) (CHRONIC WOUND/ULCER)Not detectedNONJ HealthcareVARICELLA ZOSTER VIRUS (HUMAN HERPESVIRUS 3) (CHRONIC WOUND/ULCER)0NONJ HealthcareVARICELLA ZOSTER VIRUS (HUMAN HERPESVIRUS 3) (CHRONIC WOUND/ULCER)Not detectedNOBarnes-Jewish West County HospitalVIBRIO CHOLERAE, PARAHAEMOLYTICUS, VULNIFICUS (CHRONIC WOUND/ULCER)0NONJ HealthcareVIBRIO CHOLERAE, PARAHAEMOLYTICUS, VULNIFICUS (CHRONIC WOUND/ULCER)Not detectedNOBarnes-Jewish West County HospitalNONJ HealthcareALL CBC WITH AUTO DIFFon 21-55-6112IPOSWPOCU ABSOLUTE VFAA6NLMBBarnes-Jewish West County HospitalBasophils/100 WBC (Bld)0.6 %0.2 - 2.0 %[facility]OMLakeland Regional Hospital Eosinophils/100 WBC (Bld)0 %Low0.9 - 7.0 %[facility] HospitalErythrocyte distribution width (RBC) [Ratio]13.6 %11.0 - 15.0 %[facility] HospitalHematocrit (Bld) [Volume fraction]37.4 %36.0 - 48.0 %[facility] HospitalHemoglobin (Bld) [Mass/Vol]12.1 g/dL12.0 - 16.0 g/dLCenterpoint Medical CenterMATURE GRANULOCYTES ABS AUTO 0.01NOBarnes-Jewish West County HospitalImmature granulocytes/100 WBC (Bld)0.2 %0.0 - 0.5 %[facility] HospitalInterpretation and review of laboratory resultsAbnormRoxborough Memorial Hospital LYMPHOCYTES ABSOLUTE AUTO1.1LowNChildren's Mercy NorthlandLymphocytes/100 WBC (Bld)19.9 %Low 20.5 - 60.0 %[facility] HealthcareH (RBC) [Entitic mass]29.4 pg26.7 - 34.0 pgNOCitizens Memorial HealthcareHC (RBC) [Mass/Vol]32.4 g/dL29.9 - 35.2 g/dLCitizens Memorial HealthcareV (RBC) [Entitic vol]91 fL81.0 - 99.0 fLNOMS HealthcareMONOCYTES ABSOLUTE AUTO0.2Low NOMS HealthcareMonocytes/100 WBC (Bld)4.2 %1.7 - 12.0 %[facility] NEUTROPHILS ABSOLUTE AUTO4.1NOMS HealthcareNeutrophils/100 WBC (Bld)75.1 %High 43.0 - 75.0 %NOMS HealthcarePlatelet mean volume (Bld) [Entitic vol]9.7 fL9.5 - 13.5 fLNOMS HealthcareTBH EO #0NOMS HealthcareTBH RSD988ANRN HealthcareTBH RBC 4.11LowNOMS HealthcareTBH WBC5.4NOMS HealthcareCLINISYNCNCORDELL MEMORIAL HOSPITAL [facility] Healthcare Ambulatory Visit Summaryon 61-72-3878Ncjadbbxjs Visit SummaryAmbulatory Visit Summary TALIA RUTHERFORD :1970 [...] you for choosing us for your care. [facility] HospitalGastroenterology Office/Clinic Noteon 92-61-3670Ldcsauisotattbpc Office/Clinic NoteGastroenterology Office/Clinic Note Chief Complaint ref [...] virus vaccine, inactivated - Not Given Patient RefusesWVUMedicine Harrison Community HospitalComment on above:Result Comment: Electronically Signed By: Jelani WELLER, Ron Martin\.br\Date and Time Signed: 03/18/2415:21 EDTOutside Colonoscopyon 07-38-6418Kbrrgzr Colonoscopy [id number]#1.00TIFOhioHealth Arthur G.H. Bing, MD, Cancer CenterReminderjefferson memorial hospital 24-25-7507Jveytwkyt From: Machelle Arauz LPN To: GSN - Clinical; Sent: 07/20/2023 10:55:11 EST Show up: 06/19/2033 07:00:00 EST Subject: colonoscopy recall Due Date/Time: 07/19/2033 07:00:00 EST Reminder/Recall Patient due for screening colonoscopy 07/19/2033.[facility] HospitalLab Reportson 03-95-4090Fuw Reports [id number]#1.00[facility] HospitalInsurance Correspondenceon 38-01-2238Cdoxvgewf Correspondence [id number]#1.00TIFOhioHealth Arthur G.H. Bing, MD, Cancer CenterFacesheeton 22-27-2053Fokuvpeae [id number]#1.00TIFOhioHealth Arthur G.H. Bing, MD, Cancer CenterPhysician Referralon 05-73-7001Psqoymrhu Referral [id number]#1.00[facility] HospitalAmbulatory Visit Summaryon 45-31-2657Xfxgvnknxz Visit Summary TALIA RUTHERFORD :1970 Visit Date:06/07/2023 [...] you for choosing us for your care. [facility] HospitalLab Reportson 03-39-3501Qix [id number]#1.00[facility] HospitalConsultation Noteon 79-02-6982Fpufoujokctk Note [id number]#1.00[facility] HospitalPhysician Referralon 59-74-1398Fgyjzszdt Referral [id number]#1.00[facility] HospitalOffice Visiton 12-75-8700Kkbrbx-up [id number] Talia Rutherford 1970 F Date Provider Department Center 04/07/2023 27261-POFJTCHXUCAROL WEBB IAN [facility] Family History Problem Relation Age of Onset Brain Aneurysm Mother 80 Diabetes Mother Heart failure Father 80 Diabetes Father Hypertension Father Diabetes Sister Family Status - Relation Status Age at Mother Father Sister Level of Service:[address] [place] OFFICE/OUTPATIENT ESTABLISHED MOD MDM 30-39 [facility]36on 95-30-052015VPJ lab called to report critical HGB and hematocrit for patient: HGB was 5.1 and hematocrit is 18.9. I spoke with Talia and advised she go to the ED. She verbalized understanding and will do so.[facility] NorthOffice Visiton 88-03-0320Ovxtfo-up [id number] Talia Rutherford 1970 F Date Provider Department Center 02/08/2023 45010-SXNVQZOMPCAROL WEBB IAN [facility] Family History Problem Relation Age of Onset Brain Aneurysm Mother 80 Diabetes Mother Heart failure Father 80 Diabetes Father Hypertension Father Diabetes Sister Family Status - Relation Status Age at Mother Father Sister Level of Service:[address]296 [place] OFFICE/OUTPATIENT NEW MODERATE MDM 45-59 MINUTES Reason for Visit and Comments: Establish Care [42] - Swelling in both legs,right leg is itching and painful Shortness of Breath [226830] Dizziness [126060] Fatigue [46]NormalThe MetroHealth SystemPREG HCG QUALon 03-10-2022 , QUALNegativeNormalNEGATIVEThe [facility] Medical CenterComment on above: Performed By: #### PREG ####[facility] [address] [place] [address]DrConsuelo JohnsonCovid-19 PCR (CVDTBH)on 03-03-2022 SARS-CoV-2 (COVID-19) RNA EMMANUEL+probe Ql (Unsp spec)Not detectedNormalNOT DETECTED The [facility] Medical CenterComment on above:Result Comment: This test is not yet approved or cleared by the [place] FDA. When there are no FDA-approved or cleared tests available, and other criteria are met, FDA can make tests available under an emergency access mechanism called an Emergency Use Authorization (EUA). The EUA for this test is supported by the [place] of Health and Human Service's (HHS's) declaration [...] consistent with SARS-CoV-2.Performed By: #### CVDTBH #### [facility] Laboratory [address] [place] [address] [address] Moni BarbosaF CHEM 8 (BAS METB)on 34-93-0126Mkgca gap [Moles/Vol]9.0 mmol/LNormalThe [facility] Medical CenterComment on above:Performed By: #### BMP ####[facility] [address] [place] [address]Dr. Moni ChangCalcium [Mass/Vol]8.3 mg/dLCritically low8.5-10.1The [facility] CenterComment on above:Performed By: #### BMP ####[facility] [address] [place], [place] [address]Dr.Yilan ChangChloride [Moles/Vol]106 mmol/EWleqrr64-664Zma [facility] CenterComment on above:Performed By: #### BMP ####[facility] X[address] [place], [place] [address]Dr.Yilan ChangCO2 [Moles/Vol]29.2 mmol/IDntbdw90.0-32.0The [facility] CenterComment on above:Performed By: #### BMP ####[facility] [address] [place], [place] [address]Dr.Yilan ChangCreatinine [Mass/Vol]0.78 mg/dLNormal0.55-1.02The [facility] Medical CenterComment on above: Performed By: #### BMP ####[facility] [address] [place], [place] [address]Dr.Yilan ChangEGFR-AF MAURITANIAN>60Normal>=60The [facility] Medical CenterComment on above:Performed By: #### BMP ####[facility] [address] [place] [address]Dr.Yilan ChangEGFR-NON AF MAURITANIAN>60Normal>=60The [facility] Medical CenterComment on above:Performed By: #### BMP ####[facility] [address] [place] [address]Dr. Yilan ChangGlucose [Mass/Vol]88 mg/hYQonmjx06-930Szb [facility] CenterComment on above:Performed By: #### BMP ####[facility] [address] [place], [place] [address]Ug.Moni JohnsonPotassium [Moles/Vol]4.2 mmol/LNormal 3.5-5.1The [facility] CenterComment on above:Performed By: #### BMP ####[facility] [address] [place], [place] [address]Wv.Moni Johnson Sodium [Moles/Vol]140 mmol/HAaxmvl673-422Iif [facility] CenterComment on above: Performed By: #### BMP ####[facility] [address] [place], [place] [address]Lr.Moni ChangUrea nitrogen [Mass/Vol]21.0 mg/dL Critically high7.0-18.0The [facility] Medical CenterComment on above:Performed By: #### BMP ####[facility] [address] [place], [place] [address]Fd. Moni ChangUrea nitrogen/Creatinine [Mass ratio]26.9 mg/mgNormalThe [facility] CenterComment on above:Performed By: #### BMP ####[facility] [address] [place], [place] [address]Mk.Moni ChangCT FOOT LT WO CONon 60-66-8917KM FOOT LT WO CONEXAMINATION: CT FOOT LT [...] Electronically authenticated by: ELLIOT JOSE Date: 2022-02-22 18:32NormOhioHealth Southeastern Medical CenterCOVID Quick Testingon 38-18-8544QjwgrmDqqpivycBkovk Coast [employer] Other Quick Fluon 94-85-9186URRIT Ab CF (S) [Titer]Negative [facility] [employer] Other FLUBV Ab CF (S) [Titer]NegativeNortSelect Specialty Hospital - Danville [employer] Other 883-3740Fktkw-92 PCR (CVDLAKEVILLE [facility]OSPITAL)on 84-38-0340BOLN-CoV-2 (COVID- 19) RNA EMMANUEL+probe Ql (Unsp spec)Not detectedNormalNOT DETECTEDThe [facility] Medical CenterComment on above:Result Comment: This test is not yet approved or cleared by the [place] FDA. When there are no FDA-approved or cleared tests available, and other criteria are met, FDA can make tests available under an emergency access mechanism called an Emergency Use Authorization (EUA). The EUA for this test is supported by the [place] of Health and Human Service's (HHS's) declaration [...] consistent with SARS-CoV-2.Performed By: #### CVDTBH #### [facility] Laboratory [address] [address] [address] Moni Johnson Vital Signs Date TimeVital SignValuePerforming GnfhpeoraCycezfqr34-17-4704 14:35-0500Body .4 cmJovon Asif MD Work Phone: [facility] CenterCloudFX Hrkyxa21-50-2206 14:35-0500Body mass index (BMI) [Ratio]28.45 kg/s9MtxuwuJovon Asif MD Work Phone: [facility]11-05-2025 14:35-0500Body bbnbwo90.74 kgJovon Asif MD Work Phone: [facility]11-05-2025 14:35-0500Diastolic blood hvjjdavm38 mm[Hg]Jovon Asif MD Work Phone: [facility]11-05-2025 14:35-0500Heart rate 80 /minJovon Asif MD Work Phone: [facility]11-05-2025 14:35-0500Systolic blood ejlhtquo910 mm[Hg]Jovon Asif MD Work Phone: [facility]11-03-2025 16:20-0500Body izmdgc053.1 cmLisa Aichholz CANDY VENDOR-C Work Phone: [facility]11-03-2025 16:20-0500 Body mass index (BMI) [Ratio]29.1 kg/m2Lisa Aichholz CANDY VENDOR-C Work Phone: [phone] [place], [place] [address]011-03-2025 16:20-0500 Body tzzrwgtfyjg74.5 [degF]Pascale Aichholz CANDY VENDOR-C Work Phone: [phone]-[facility]11-03-2025 16:20-0500 Body pirhfz75.37 kgLisa Aichholz CANDY VENDOR-C Work Phone: [phone] [place], [place] [address]011-03-2025 16:20-0500 Diastolic blood ofibvfbo23 mm[Hg]Pascale Aichholz CANDY VENDOR-C Work Phone: 1(616)957-[facility]11-03-2025 16:20-0500 Heart rate93 /minLisa Aichholz CANDY VENDOR-C Work Phone: [facility]11-03-2025 16:20-0500 Respiratory rate18 /minLisa Aichholz CANDY VENDOR-C Work Phone: 1(419)547-[address] [place], [place] 3219011-03-2025 16:20-0500 SaO2% (BldA) [Mass fraction]96 %Pascale Aichholz CANDY VENDOR-C Work Phone: 1(726)[address]11-03-2025 16:20-0500 Systolic blood kofhvkpp03 mm[Hg]Pascale Aichholz CANDY VENDOR-C Work Phone: 1(155)[address]10-13-2025 14:29-0400 Body gcsehb674.1 cmLisa Aichholz CANDY VENDOR-C Work Phone: 1(594)[address] [place], [place] 1567110-13-2025 14:29-0400 Body mass index (BMI) [Ratio]29.2 kg/m2Lisa Aichholz CANDY VENDOR-C Work Phone: 1(418)[address] [place], [place] 9900810-13-2025 14:29-0400 Body unvoop07.83 kgLisa Aichholz CANDY VENDOR-C Work Phone: 1(792)[address] [place], [place] 9900810-13-2025 14:29-0400 Diastolic blood qjmfkify89 mm[Hg]Pascale Aichholz CANDY VENDOR-C Work Phone: 1(259)[address]10-13-2025 14:29-0400 Heart rate83 /minLisa Aichholz CANDY VENDOR-C Work Phone: 1(205)[address]10-13-2025 14:29-0400 Systolic blood lgnpyhqn91 mm[Hg]Pascale Aichholz CANDY VENDOR-C Work Phone: 1(134)[address] [place], [place] 9900810-08-2025 16:44-0400 Body dktypi474.1 cmLisa Aichholz CANDY VENDOR-C Work Phone: 1(228)[address]10-08-2025 16:44-0400 Body mass index (BMI) [Ratio]29.3 kg/m2Lisa Aichholz CANDY VENDOR-C Work Phone: 1(483)[address]10-08-2025 16:44-0400 Body lwzvsdfkhaa13 [degF]Pascale Arana CANDY VENDOR-C Work Phone: 1(747)[address]10-08-2025 16:44-0400 Body .08 kgLisa Arana CANDY VENDOR-C Work Phone: 1(744)[address]10-08-2025 16:44-0400 Diastolic blood ppozcdbt35 mm[Hg]Pascale Arana CANDY VENDOR-C Work Phone: 1(197)[address]10-08-2025 16:44-0400 Heart rate65 /minLisa Lastholz CANDY VENDOR-C Work Phone: 1(972)[address]10-08-2025 16:44-0400 Respiratory rate16 /minLisa Lastholz CANDY VENDOR-C Work Phone: 1(960)[address]10-08-2025 16:44-0400 SaO2% (BldA) [Mass fraction]99 %Pascale Herreraz CANDY VENDOR-C Work Phone: 1(797)[address]10-08-2025 16:44-0400 Systolic blood yqzsaybh91 mm[Hg]Pascale Arana CANDY VENDOR-C Work Phone: 1(739)[address]09-10-2025 14:57-0400 Body femeta695.4 cmJovon Asif MD Work Phone: [facility]09-10-2025 14:57-0400Body mass index (BMI) [Ratio]28.94 kg/b7HpqmjuJovon Asif MD Work Phone: [facility]09-10-2025 14:57-0400Body avvadb45.11 kgJovon Asif MD Work Phone: [facility]09-10-2025 14:57-0400Diastolic blood mm[Hg]Jovon Asif MD Work Phone: [facility]09-10-2025 14:57-0400Heart rate 83 /minJovon Asif MD Work Phone: [facility]09-10-2025 14:57-0400Systolic blood xsiziwpn64 mm[Hg]Jovon Asif MD Work Phone: [facility]09-02-2025 08:37-0400Body dmyurh485.1 cmLisa Derrickhjarrettz Work Phone: [facility]09-02-2025 08:37-0400 Body mass index (BMI) [Ratio]29.2 kg/m2Lisa Aichholz Work Phone: [phone]09-02-2025 08:37-0400 Body inlyjk84.6 kgLisa Aichholz Work Phone: [facility]08-05-2025 11:31-0400 Body mass index (BMI) [Ratio]28.76 kg/m2Galinasa Derrickhholz CANDY VENDOR Work Phone: [facility] HospitalIsbqqrxvei68-58-6003 11:31-0400Body temperature 97.81 [degF]Pascale Sumit CANDY VENDOR Work Phone: [facility] HospitalMlmfqglilb37-60-1276 11:31-0400Body yzhzbb44.38 kgLi Derrickhholz CANDY VENDOR Work Phone: [facility] HospitalByhllhkaeo39-65-3447 11:31-0400Diastolic blood magnvils56 mm[Hg]Pascale Sumit CANDY VENDOR Work Phone: [facility] HospitalAbshldhoxm65-57-5133 11:31-0400Heart rate99 /min Pascale Sumit CANDY VENDOR Work Phone: [facility] HospitalPnsnqdrpli43-14-0683 11:31-3055BvF9% (BldA) [Mass fraction]97 %Pascale Sumit CANDY VENDOR Work Phone: [facility] HospitalYuhbkgtylo47-00-7695 11:31-0400Systolic blood oizmxjvy022 mm[Hg]Pascaleeric Arana CANDY VENDOR Work Phone: [facility] HospitalNysjewmluc58-39-7411 15:01-0400Body mass index (BMI) [Ratio]28.79 kg/x6HwnhtglxEunice Dias HNP-BC Work Phone: [facility] HospitalWtfqlivzdj77-95-4980 15:01-0400Body esogeo86.47 kgEunice Dias PMHNP-BC Work Phone: [facility] HospitalWgwzldmwmk82-76-8830 15:01-0400Diastolic blood axxmzgoe30 mm[Hg]Eunice Dias PMHNP-BC Work Phone: [facility] HospitalWgywmgfbzl97-59-3926 15:01-0400Heart rate88 /min Eunice Dias PMHNP-BC Work Phone: [facility] HospitalBbheknmrkg65-16-5528 15:01-0400Systolic blood scsefhec385 mm[Hg]Eunice Dias HNP- Work Phone: [facility] HospitalBourkwpraz25-93-8925 14:23-0400Body aorrpa682.4 cmTkimber Muniz DO Work Phone: [facility]07-17-2025 14:23-0400Body mass index (BMI) [Ratio]28.51 kg/k9Xziho Muniz DO Work Phone: [facility]07-17-2025 14:23-0400Body lczifl87.93 kgJuanya Muniz DO Work Phone: [facility]07-17-2025 14:23-0400Diastolic blood msjaawye92 mm[Hg]Shelia Muniz DO Work Phone: [facility]07-17-2025 14:23-0400Systolic blood mm[Hg]Shelia Muniz DO Work Phone: [facility]07-02-2025 09:04-0400Body mass index (BMI) [Ratio]29.62 kg/j9YbjlhlbyEunice Dias HNP-BC Work Phone: [facility] HospitalOlpkffqwnz63-24-3896 09:04-0400Body vdcuin49.74 kgEunice Dias [facility]-BC Work Phone: [facility] HospitalEsyksclbln47-01-9564 09:04-0400Diastolic blood zqenvpss34 mm[Hg]Eunice Dias [facility] Work Phone: [facility] HospitalKhbvmxsopd34-42-2399 09:04-0400Heart rate78 /min Eunice Dias [facility]- Work Phone: [facility] HospitalUgfxtbbprw07-15-4191 09:04-0400Systolic blood bszgybcr972 mm[Hg]Eunice Dias [facility]- Work Phone: [facility] HospitalJlzbkshprh83-38-0071 16:32-0400Body mass index (BMI) [Ratio]29.99 kg/m2Pascale Herreraz CANDY VENDOR Work Phone: [facility] HospitalZjcunxwetl15-93-0139 16:32-0400Body temperature 98.01 [degF]Pascale Sumit CANDY VENDOR Work Phone: [facility] HospitalJpaqgjsjfn50-95-0717 16:32-0400Body jeozca70.74 kgLisa Javierz CANDY VENDOR Work Phone: [facility] HospitalDxgsvhwuxm40-88-7759 16:32-0400Diastolic blood ngmtyfsn04 mm[Hg]Pascale Sumit CANDY VENDOR Work Phone: [facility] HospitalDvkqsqoran06-28-4191 16:32-0400Heart rate82 /min Pascale Javierz CANDY VENDOR Work Phone: [facility] HospitalWjbchlvsmy37-51-7392 16:32-0400Respiratory rate18 /minLisa Javierz CANDY VENDOR Work Phone: [facility] HospitalAqnovrkxtz61-00-6377 16:32-3556HxI5% (BldA) [Mass fraction]98 %Pascale Javierz CANDY VENDOR Work Phone: [facility] HospitalQwpydhuzjd13-06-9811 16:32-0400Systolic blood hzeipujv193 mm[Hg]Pascale Derrickhholz CANDY VENDOR Work Phone: noBarn[facility] HospitalMzcyowkjxo32-96-3539 15:30-0400Body mass index (BMI) [Ratio]32.48 kg/m2Pascale Herreraz CANDY VENDOR Work Phone: [facility] HospitalKubmlufxft02-50-8189 15:30-0400Body temperature 98.2 [degF]Pascale Arana CANDY VENDOR Work Phone: [facility] HospitalMzymajkvzv72-84-7496 15:30-0400Body trlgaz03.54 kgLisa Arana CANDY VENDOR Work Phone: [facility] HospitalSmnbkzclvm52-33-4656 15:30-0400Diastolic blood ngxnermk49 mm[Hg]Pascale Arana CANDY VENDOR Work Phone: [facility] HospitalEpxgwkirwq59-99-7796 15:30-0400Heart rate80 /min Pascale Arana CANDY VENDOR Work Phone: [facility] HospitalImnzxuqbfh16-36-2993 15:30-0400Respiratory rate18 /minLisa Arana CANDY VENDOR Work Phone: [facility] HospitalLhtcjmttxk57-98-8596 15:30-3794GyL8% (BldA) [Mass fraction]95 %Pascale Arana CANDY VENDOR Work Phone: noBarn[facility] HospitalWpsfpyeasb92-19-6422 15:30-0400Systolic blood ioxqteqq711 mm[Hg]Pascale Arana CANDY VENDOR Work Phone: [facility] HospitalJnidfudwrv04-86-5974 17:34-0400Body mass index (BMI) [Ratio]32.58 kg/m2Pascale Arana CANDY VENDOR Work Phone: [facility] HospitalNrqcfojvbs55-85-6836 17:34-0400Body temperature 98.8 [degF]Pascale Araan CANDY VENDOR Work Phone: noBarn[facility] HospitalPkoayfihqc78-13-7295 17:34-0400Body .81 kgLisa Herreraz CANDY VENDOR Work Phone: [place] [address]Mnbmsnltnk26-97-6270 17:34-0400Diastolic blood yfwwomeb72 mm[Hg]Pascale Derrickhholz CANDY VENDOR Work Phone: [facility] HospitalOqtboqpjbt68-38-5875 17:34-0400Heart rate92 /min Pascale Aichholz CANDY VENDOR Work Phone: [facility] HospitalJkypjmphhu80-29-8581 17:34-0400Respiratory rate18 /minLisa Aichholz CANDY VENDOR Work Phone: [facility] HospitalAazqqdyexs69-32-7337 17:34-1047KvZ0% (BldA) [Mass fraction]97 %Pasclae Aichholz CANDY VENDOR Work Phone: [facility] HospitalPqisgimxsj65-57-1189 17:34-0400Systolic blood atkyeqfu48 mm[Hg]Pascale Aichholz CANDY VENDOR Work Phone: [facility] HospitalWoejtrzdmo27-93-1135 16:51-0400Body rjobni158.1 cmLisa Derrickhholz CANDY VENDOR Work Phone: [facility] HospitalRstoduzanw53-49-9588 16:51-0400Body mass index (BMI) [Ratio]33.51 kg/m2Lisa Aichholz CANDY VENDOR Work Phone: [facility] HospitalUazbzhljjt17-02-3217 16:51-0400Body temperature 97.81 [degF]Pascale Derrickhholz CANDY VENDOR Work Phone: [facility] HospitalLmkghnniou94-69-1879 16:51-0400Body tghska59.35 kgLisa Aichholz CANDY VENDOR Work Phone: [place] [address]Ljhaouidza09-49-5581 16:51-0400Heart rate68 /min Pascale Aichholz CANDY VENDOR Work Phone: [place] [address]Uktrouofwn75-12-6878 16:51-0400Respiratory rate18 /minLisa Aichholz CANDY VENDOR Work Phone: [place] [address]Ioctdrtfpi90-58-3148 16:51-8801WaX0% (BldA) [Mass fraction]97 %Pascale Aichholz CANDY VENDOR Work Phone: noBarn[facility] HospitalJifnmrjhiq56-68-9891 16:10-0500Body nqsavn313.1 cmAngel Luis Nolanpatrick CANDY VENDOR Work Phone: [facility] HospitalPootgtlelp95-07-5169 16:10-0500Body mass index (BMI) [Ratio]33.28 kg/g8Rzarmczm Groves CANDY VENDOR Work Phone: [facility] HospitalOoxepypxwr11-35-8347 16:10-0500Body temperature 97.2 [degF]Angel Luis Groves CANDY VENDOR Work Phone: [facility] HospitalRrrynyvytv40-99-3259 16:10-0500Body oskjhm80.72 kgAngel Luis Groves CANDY VENDOR Work Phone: [facility] HospitalJwvkwlkorl76-98-7046 16:10-0500Diastolic blood ojinyltq95 mm[Hg]Angel Luis Groves CANDY VENDOR Work Phone: [facility] HospitalIadeqckonx44-27-3738 16:10-0500Heart rate79 /min Angel Luis Groves CANDY VENDOR Work Phone: noBarn[facility] HospitalGnbmtuzswz29-69-0250 16:10-0500Respiratory rate16 /minBrmanasa BrittonGroves CANDY VENDOR Work Phone: noBarn[facility] HospitalQmfstbkggm71-45-7806 16:10-7167DnS2% (BldA) [Mass fraction]98 %Angel Luis Groves CANDY VENDOR Work Phone: [facility] HospitalMbtziafhsg53-40-4347 16:10-0500Systolic blood ttdfmkad853 mm[Hg]Angel Luis Groves CANDY VENDOR Work Phone: noBarnes-[facility] HospitalCqujtdyuft74-47-3613 16:04-0500Body mass index (BMI) [Ratio]33.32 kg/m2Galina Sumit CANDY VENDOR Work Phone: [facility] HospitalXejrqnnnvd90-23-5008 16:04-0500Body temperature 98.1 [degF]Pascale Aichholz CANDY VENDOR Work Phone: [facility] HospitalMbzwsekksv76-88-9362 16:04-0500Body asubxu29.81 kgPascale Arana CANDY VENDOR Work Phone: [facility] HospitalBrqkwiwgga14-12-9174 16:04-0500Diastolic blood shnqvikt34 mm[Hg]Pascale Arana CANDY VENDOR Work Phone: [facility] HospitalDhfawfyeph80-04-9566 16:04-0500Heart rate80 /min Pascaleeric Arana CANDY VENDOR Work Phone: [facility] HospitalXpsfojhuwm87-80-3506 16:04-0500Respiratory rate20 /minPascale Arana CANDY VENDOR Work Phone: [facility] HospitalDumevaimsh94-04-6840 16:04-4168ZkF2% (BldA) [Mass fraction]97 %Pascale Arana CANDY VENDOR Work Phone: [facility] HospitalSfwlieqcbr51-38-4392 16:04-0500Systolic blood yjemkitj03 mm[Hg]Pascale Arana CANDY VENDOR Work Phone: [facility] HospitalXhibwbmbha55-70-2112 14:59-0500Body .1 cmBrjellymelani BrittonGroves CANDY VENDOR Work Phone: [facility] HospitalPichdfkxvy06-87-4648 14:59-0500Body mass index (BMI) [Ratio]34.28 kg/f0Pbmmwwed Groves CANDY VENDOR Work Phone: [facility] HospitalGvwdpaaqrp20-82-9824 14:59-0500Body temperature 96.21 [degF]Angel Luis Groves CANDY VENDOR Work Phone: [facility] HospitalMyoqdxivzx50-33-5060 14:59-0500Body dsqgko66.44 kgBrmanasa Groves CANDY VENDOR Work Phone: [facility] HospitalXsnykhwmrp27-20-2850 14:59-0500Diastolic blood qkeptdiy75 mm[Hg]Angel Luis Groves CANDY VENDOR Work Phone: [facility] HospitalLyhixnxbjz92-46-0025 14:59-0500Heart rate83 /min Angel Luis Groves CANDY VENDOR Work Phone: [facility] HospitalZwbyezqcvv94-55-1270 14:59-0500Respiratory rate22 /minAngel Luis Groves CANDY VENDOR Work Phone: [facility] HospitalYvzaoanukb69-87-5630 14:59-1577IkG1% (BldA) [Mass fraction]98 %Angel Luis Groves CANDY VENDOR Work Phone: [facility] HospitalCtwlkkikry52-87-3791 14:59-0500Systolic blood kpilcviz088 mm[Hg]Angel Luis Groves CANDY VENDOR Work Phone: [facility] HospitalPehrbhdcru63-48-5705 15:56-0400Body .1 cmAngel Luis Nolanpatrick CANDY VENDOR Work Phone: [facility] HospitalEpmbuhwjbf67-96-6187 15:56-0400Body mass index (BMI) [Ratio]33.61 kg/a6Jituiwzd Groves CANDY VENDOR Work Phone: [facility] HospitalAplklracem87-15-2226 15:56-0400Body temperature 98.29 [degF]Angel Luis Groves CANDY VENDOR Work Phone: [facility] HospitalHcitxijyto67-79-1959 15:56-0400Body heoojx46.63 kgBrmanasa Groves CANDY VENDOR Work Phone: [facility] HospitalIcxfhbhhut17-38-7042 15:56-0400Diastolic blood ovwbbwuc87 mm[Hg]Angel Luis Groves CANDY VENDOR Work Phone: [facility] HospitalIofbrqarzk80-32-7059 15:56-0400Heart rate67 /min Angel Luis Groves CANDY VENDOR Work Phone: [facility] HealthcareComment on above:98% Z971-83-1877 15:56-0400Systolic blood wjirsmlp878 mm[Hg]Angel Luis Groves CANDY VENDOR Work Phone: [facility] HospitalQliasbhyyh28-05-6134 15:06-0400Blood Pressure LocationMosolad Tanli 533-9364Ypiyec-MtswrEast [facility]08-26-2024 15:06-0400Diastolic blood jfrqywrc30 mm[Hg]Lynnd Tanli 456-4925Wmplvi-ZkkfhEast [facility] Hospital08-26-2024 15:06-0400Heart rate85 /minClaraad Braduchli [phone]-IyueoEast [facility] Hospital08-26-2024 15:06-0400Respiratory rate16 /minClaraad Braduchli 352-3295Jdkxbp-EfzpwEast [facility]08-26-2024 15:06-0400Systolic blood onscihmt407 mm[Hg]Ron Palomares 448-0007Ytsfza-VxfrjEast [facility] Hospital08-20-2024 15:46-0400Body qypcdu327.1 cmBrjellyany Groves CANDY VENDOR Work Phone: noBarn[facility] HospitalGyxzndvmqu95-90-4856 15:46-0400Body mass index (BMI) [Ratio]33.28 kg/g8Uliqpsnv Groves CANDY VENDOR Work Phone: noBarn[facility] HospitalJbunxenlqx47-18-5532 15:46-0400Body temperature 98.01 [degF]Angel Luis Groves CANDY VENDOR Work Phone: [facility] HospitalUikqynwzxf05-92-7399 15:46-0400Body iavllm14.72 kgBrittany Groves CANDY VENDOR Work Phone: noBarn[facility] HospitalDpuyyciimt08-09-4243 15:46-0400Diastolic blood fhcmdmke03 mm[Hg]Angel Luis Groves CANDY VENDOR Work Phone: noBarn[facility] HospitalFkmlozvdjd77-80-2544 15:46-0400Heart rate71 /min Angel Luis Groves CANDY VENDOR Work Phone: noNJ HealthcareComment on above:99% W066-55-0874 15:46-0400Systolic blood olukrwul846 mm[Hg]Angel Luis Groves CANDY VENDOR Work Phone: [facility] HospitalDdjlmoqrhr21-27-9523 16:03-0500Blood Pressure LocationMichael NILL [facility] Npqtppeb62-95-1572 16:03-0500Diastolic blood wjxauoza53 mm[Hg]Segun NILL [facility] Qtpealkw34-62-5317 16:03-0500Heart rate 72 /minMichael NILL [facility] Quogxqws27-72-3327 16:03-0500 Respiratory rate16 /minMichael NILL [facility] Ohfsrtno03-54-2918 16:03-0500Systolic blood zzquxrqs617 mm[Hg]Segun NILL [facility] Pbveqkvv45-59-0635 13:00-0500Body rycast778.1 cmAmber Mariano Other [employer] Other 02-07-2022 13:00-0500Body mass index (BMI) [Ratio] 30.95 kg/i0Dunli Mariano Other [employer] Other 02-07-2022 13:00-0500Body wmouwuduphy40 [degF]Kristin Quintana Other [employer] Other 02-07-2022 13:00-0500Body raarub11.37 kgAmber Ginty Other [employer] Other 02-07-2022 13:00-0500Respiratory rate16 /minAmber Ginty Other [employer] Other 777480-55-7940 13:00-7823EbY2% (BldA) [Mass fraction]98 % Kristin Quintana [facility] [employer] Other Encounters Encounter DateEncounter TypeCare ProviderFacilityStart: 05-28-2025 End: 39-90-4874Sjjtcu outpatient visit 25 minutesJovon Asif MD Work Phone: [facility] Pel[facility] Health - UrogynComment on above:Urge urinary incontinence (Primary Dx); Cystocele with second degree uterine prolapse; History of reconstructive repair of rectoceleStart: 05-28-2025 End: 28-06-2594bkscxhxzlbFFIRWZ C KASSISWilson [facility] Ambulatory PPGStart: 05-26-2025 End: 74-63-5317nkqoymyvnyMqow J Aichholz NP-C Work Phone: -[facility] ClydeStart: 05-26-2025 End: 04-62-9520Tmclxgb encounter procedureLisa Bang Arana CANDY VENDOR-C-[facility] [place] Work Phone: Start: 05-21-2025 End: 17-78-3580Lumepvfcw encounterRohan Alfredorandall JAX [facility] HealthStart: 05-05-2025 End: 94-13-8964ctivugsvdrXevm J Aichholz CANDY VENDOR-C Work Phone: [facility] Work Phone: Start: 05-05-2025 End: 25-46-4260Fascutf encounter procedureClinton [facility] Work Phone: Start: 72-36-3245Udc-patient / Non-visitLisa Bang Arana CANDY VENDOR-C-[facility] Professional [employer] Work Phone: Start: 05-05-2025 End: 82-09-9060hizcweunodHrlposgAlexandra Eden MDFacility:MARCELINO [place]: 05-02-2025 End: 86-59-3911Mjhvcpfxq encounterKendafaizan Gudino CMAProMedica Physicians Pelvic Health - UrogynecologyStart: 04-30-2025 End: 83-29-4177hvczzmqzucMvsm J Aichholz CANDY VENDOR-C Work Phone: [facility] Work Phone: Start: 04-30-2025 End: 64-32-7110Vlucaqk encounter Melchor Arana CANDY VENDOR-C-[facility] Work Phone: Start: 04-23-2025 End: 05-70-2383Jmnlsab encounter procedureShun Arshad MD-[facility] Work Phone: Start: 04-23-2025 End: 73-11-6154nfsvlaunanKiet J Aichholz CANDY VENDOR-C Work Phone: [facility] Work Phone: Start: 89-59-2620Mtn-patient / Non-visitChristian Olivier Dong MD-[facility] Work Phone: Start: 04-09-2025 End: 29-61-8326nsnltrwogrNQNDTW MALICKINot AvailableStart: 04-09-2025 End: 90-58-1848Csayre flowsheetBayley Malicki LPCNOMS [facility] Start: 04-09-2025 End: 64-59-5710Rcebvh flowsheetBayley Malicki LPCNOMS [facility] Start: 04-03-2025 End: 12-19-5293Whuzvp outpatient visit 15 Mary Ann Dias HNP- Work Phone: [facility] HealthComment on above:JESSIKA (generalized anxiety disorder) ; Severe episode of recurrent major depressive disorder, without psychotic features (HCC); PTSD (post-traumatic stress disorder) ; Insomnia, unspecified type; FibromyalgiaStart: 04-03-2025 End: 10-38-1968prohcmnghyPTVVKFBC BRITTONNot AvailableStart: 04-02-2025 End: 74-71-4429Froqiy outpatient new 45 minutesJovon Asif MD Work Phone: [facility] Physicians Pelvic Health - UrogynComment on above:Cystocele with second degree uterine prolapse (Primary Dx); History of reconstructive repair of rectocele; Urge urinary incontinenceStart: 04-02-2025 End: 29-51-9440wqlgmiyvmjMTHDIL C KASSISWilson [facility] Hospital Ambulatory PPGStart: 03-25-2025 End: 07-70-3663fkxbyuhutgKASCRX MALICKINot AvailableStart: 03-25-2025 End: 04-19-9780Suzpuk flowsheetBayley Malicki LPCNOMS [facility] Start: 03-25-2025 End: 11-02-3293Mcqzxa flowsheetBayley Malicki LPCNOMS [facility] Start: 03-25-2025 End: 94-78-5724skltcftpblGrhl J Aichholz Work Phone: [facility] Work Phone: Start: 03-25-2025 End: 29-98-1351Jqzfuua encounter procedureShun Arshad MD-[facility] Work Phone: start: 03-10-2025 End: 59-41-6972onfdbeazzbWrqcnhc Vytautas Giedraitis MDFacility:PM [facility] Start: 03-06-2025 End: 08-80-7299rrzdoxvsqiYDAEVX MALICKINot AvailableStart: 03-06-2025 End: 57-24-8985Gqojpo flowsheetBayley Malicki LPCNOMS [facility] Start: 03-06-2025 End: 17-03-3255Zluscu flowsheetBayley Malicki LPCNOMS [facility] Start: 03-05-2025 End: 92-65-0885Qwjiqrjcq Result Aida Arana NP Work Phone: [facility] External Department UnsolicitedStart: 03-05-2025 End: 95-09-6781Psatbtqod Result EncounterPascale Arana CANDY VENDOR Work Phone: noms External Department UnsolicitedStart: 02-26-2025 End: 51-69-5916Izuequgin Result EncounterGeneric External Data ProviderNOMS External Department UnsolicitedStart: 02-26-2025 End: 01-83-7542Bbidynska Result EncounterGeneric External Data ProviderNOMS External Department UnsolicitedStart: 02-26-2025 End: 60-40-3485SisdavMoaj Aichholz CANDY VENDOR Work Phone: [facility] CWM FMComment on above:Gastroesophageal reflux disease, unspecified whether esophagitis present (Primary Dx)Start: 02-25-2025 End: 50-58-0757Orkrry outpatient visit 25 minutesPascale Arana CANDY VENDOR Work Phone: [facility] CWM FMComment on above:Severe episode of recurrent major depressive disorder, without psychotic features (HCC) (Primary Dx); Cigarette nicotine dependence without complication; PTSD (post-traumatic stress disorder) ; Class 1 obesity due to excess calories without serious comorbidity with body mass index (BMI) of 32.0 to 32.9 in adult; Iron deficiency anemia secondary to inadequate dietary iron intake; Primary insomniaStart: 02-25-2025 End: 45-33-6875cxteumuqhtAKCZ DERRICKDayanMICHELLEot AvailableStart: 02-24-2025 End: 54-69-4318ghilkdysipVKROJPXG BRITTONNot AvailableStart: 02-24-2025 End: 73-80-1303Oxajpw outpatient visit 15 Mary Ann Dias [facility] Work Phone: noms [facility] HealthComment on above:JESSIKA (generalized anxiety disorder) ; Severe episode of recurrent major depressive disorder, without psychotic features (HCC); PTSD (post-traumatic stress disorder) ; Insomnia, unspecified type; Sleep apnea, unspecified typeStart: 02-24-2025 End: 21-86-0131Ehayym flowsheetEunice Dias [facility]- Work Phone: noms [facility] HealthStart: 02-24-2025 End: 51-21-6844Doffxq Sarah Dias PMHNP-BC Work Phone: noms [facility] HealthStart: 02-24-2025 End: 37-05-4194Dtilu Birdie Asif MD Work Phone: [facility] Start: 02-20-2025 End: 82-63-7421ZsdmvtRsrp Aichholz CANDY VENDOR Work Phone: noms CWM FMComment on above:Psychophysiological insomniaStart: 02-19-2025 End: 09-75-0279Jntxybahi Result EncounterGeneric External Data ProviderNOMS External Department UnsolicitedStart: 02-19-2025 End: 90-19-9556Lyxoxxbbc Result EncounterGeneric External Data ProviderNOMS External Department UnsolicitedStart: 02-11-2025 End: 43-78-8273SaaawrRdky Aichholz CANDY VENDOR Work Phone: noms CWM FMComment on above:UTI (urinary tract infection), uncomplicated; Class 1 obesity due to excess calories without serious comorbidity in adult, unspecified BMI; BMI 32.0-32.9,adultStart: 02-06-2025 End: 45-90-0423Klytez outpatient new 30 minutesTanya L Muniz DO Work Phone: [facility]GynecologyComment on above:Cystocele with second degree uterine prolapse (Primary Dx); History of reconstructive repair of rectocele; Urge urinary incontinence; Incomplete emptying of bladder; Atrophic vaginitisStart: 02-06-2025 End: 38-93-5637QqdxatLbtg Aichholz CANDY VENDOR Work Phone: noms CWM FMComment on above:URTI (acute upper respiratory infection); Non-recurrent acute suppurative otitis media of both ears without spontaneous rupture of tympanic membranesStart: 02-05-2025 End: 05-99-3522Shhegeawx Result EncounterGeneric External Data ProviderNOMS External Department UnsolicitedStart: 02-05-2025 End: 01-13-4426Uzruidxil Result EncounterGeneric External Data ProviderNOMS External Department UnsolicitedStart: 01-22-2025 End: 51-23-9714Ernnkh Sarah Dias [facility]- Work Phone: NOPU CI BHStart: 01-22-2025 End: 33-58-6522Wibwcb Sarah Dias [facility] Work Phone: NOVL CI BHStart: 01-22-2025 End: 65-42-7642jfyqntbhopOCYSSLGA BRITTONNot AvailableStart: 01-20-2025 End: 90-23-5069xhdfzmxzpgKaipzpa Vytautas Giedraitis MDFacility:[facility] [place] Start: 01-14-2025 End: 58-37-9963Lbyxzutvk Result EncounterLisa Aichholz CANDY VENDOR Work Phone: noms External Department UnsolicitedStart: 01-14-2025 End: 34-91-9948Mdhemzlqo Result EncounterLisa Aichholz CANDY VENDOR Work Phone: noms External Department UnsolicitedStart: 01-14-2025 End: 89-09-5759GvimcgLbqn Aichholz CANDY VENDOR Work Phone: noms CWM FMComment on above:URTI (acute upper respiratory infection); Non-recurrent acute suppurative otitis media of both ears without spontaneous rupture of tympanic membranesStart: 01-07-2025 End: 93-98-6527Ypxpbb OnlyLisa Aichholz CANDY VENDOR Work Phone: noms CWM FMComment on above:B12 deficiency (Primary Dx); Iron deficiency anemia secondary to inadequate dietary iron intakeStart: 01-06-2025 End: 99-15-8154Fmktvq outpatient visit 25 minutesLisa Aichholz CANDY VENDOR Work Phone: noms CWM FMComment on above:Bipolar disorder with severe depression (HCC) (Primary Dx); Gastroesophageal reflux disease, unspecified whether esophagitis present; Class 1 obesity due to excess calories without serious comorbidity with body mass index (BMI) of 32.0 to 32.9 in adult; Cigarette nicotine dependence without complication; Stress; Fibromyalgia; Psychophysiological insomniaStart: 01-06-2025 End: 16-21-5600xpzzejxoxiFVKL AICHHOLZNot AvailableStart: 01-06-2025 End: 72-42-9025Pexzwx flowsheetLisa Shalaholz CANDY VENDOR Work Phone: noms CWM FMStart: 01-06-2025 End: 96-36-3463Gnzvwt flowsheetLisa Aichholz CANDY VENDOR Work Phone: noms CWM FMStart: 01-06-2025 End: 01-95-8381Mjpoovtoc encounterLisa Shalaholz CANDY VENDOR Work Phone: noms CWM FMStart: 12-18-2024 End: 94-17-5579OwlnmsHvjc Shalaholz CANDY VENDOR Work Phone: noms CWM FMComment on above:URTI (acute upper respiratory infection); Non-recurrent acute suppurative otitis media of both ears without spontaneous rupture of tympanic membranesStart: 11-20-2024 End: 60-78-5445byaitddpdeTCDP DERRICKHHOLZNot AvailableStart: 11-20-2024 End: 61-65-2512Mwxefrs encounter procedureLisa Arana CANDY VENDOR Work Phone: noms HealthcareStart: 11-20-2024 End: 30-90-0020Fzbuztzi preventive med est patient 40-64yrsLisa Shalaholz CANDY VENDOR Work Phone: noms CWM FMComment on above:Well [...] Hot flashes due to menopauseStart: 11-20-2024 End: 70-81-5387Gauzge flowsJeannine Herreraz CANDY VENDOR Work Phone: noms CWM FMStart: 11-20-2024 End: 48-12-6513Jfaqlk flowsJeannine Lastholz CANDY VENDOR Work Phone: noms CWM FMStart: 11-20-2024 End: 64-50-4734Rzwjvjgeo Result EncounterLisa Lastholz CANDY VENDOR Work Phone: noms External Department UnsolicitedStart: 11-18-2024 End: 83-10-5354PhsshsLypa Aichholz CANDY VENDOR Work Phone: noms CWM FMComment on above:Overactive bladder due to prolapse of female genital organGastroesophageal reflux disease, unspecified whether esophagitis presentPsychophysiological insomniaFibromyalgiaEnvironmental and seasonal allergiesURTI (acute upper respiratory infection); Non-recurrent acute suppurative otitis media of both ears without spontaneous rupture of tympanic membranesBipolar disorder with severe depression (CMS/HCC) Start: 10-23-2024 End: 17-37-0196Qowmmt outpatient visit 15 Twila Arana CANDY VENDOR Work Phone: noms CWM FMComment on above:Iron deficiency anemia secondary to inadequate dietary iron intake (Primary Dx); Class 1 obesity due to excess calories without serious comorbidity in adult, unspecified BMI; Cigarette nicotine dependence without complication; B12 deficiency; BMI 32.0-32.9,adultStart: 10-23-2024 End: 18-79-0238Qnelnfinl Result EncounterLisa Lastholz CANDY VENDOR Work Phone: noms External Department UnsolicitedStart: 10-23-2024 End: 38-43-1857Fkmrudffx Result EncounterLisa Lastholz CANDY VENDOR Work Phone: noms External Department UnsolicitedStart: 10-23-2024 End: 18-07-0830Yrbaulb encounter Shaniqua De Anda MD Work Phone: noms HealthcareStart: 10-23-2024 End: 77-19-0112JresayAwvr Naderer MD Work Phone: noms [facility] FMComment on above:URTI (acute upper respiratory infection); Non-recurrent acute suppurative otitis media of both ears without spontaneous rupture of tympanic membranesStart: 10-03-2024 End: 94-19-8944Lolnaspot Result EncounterLisa Arana CANDY VENDOR Work Phone: noms External Department UnsolicitedStart: 10-03-2024 End: 12-14-3046Fahopgeja Result EncounterLi Sumit CANDY VENDOR Work Phone: noms External Department UnsolicitedStart: 10-02-2024 End: 18-17-0008Nuumxz outpatient visit 25 minutesLisa rAana CANDY VENDOR Work Phone: noms [facility] FMComment on above:Gastroesophageal reflux disease, unspecified [...] female genital organ; BMI 34.0-34.9,adultStart: 10-02-2024 End: 11-01-3672evwdedyspiCASZ AICHHOLZNot AvailableStart: 10-02-2024 End: 67-36-5285Pafyac flowsheetPascale Arana CANDY VENDOR Work Phone: noms M FMStart: 10-02-2024 End: 71-10-5127Vjkiqa flowsheetPascale Arana CANDY VENDOR Work Phone: noms [facility] FMStart: 09-09-2024 End: 81-43-2246Lsxxbshyq Result EncounterGeneric External Data ProviderNOMS External Department UnsolicitedStart: 09-09-2024 End: 87-18-3864Qdnnombxl Result EncounterGeneric External Data ProviderNOMS External Department UnsolicitedStart: 09-06-2024 End: 36-29-4787KhahgwQkbu Aichholz CANDY VENDOR Work Phone: noms CWM FMComment on above:Environmental and seasonal allergiesStart: 09-05-2024 End: 65-71-9099Kkskygfvz Result EncounterGeneric External Data ProviderNOMS External Department UnsolicitedStart: 09-05-2024 End: 59-36-5994Yxurppjzs Result EncounterGeneric External Data ProviderNONJ External Department UnsolicitedStart: 09-04-2024 End: 50-53-2380Aybxmu outpatient visit 10 minutesBrmanasa Groves CANDY VENDOR Work Phone: NOMI CWM FMComment on above:BMI 33.0-33.9,adult (Primary Dx); Bipolar disorder with severe depression (CMS/HCC); Fibromyalgia; Gastro-esophageal reflux disease without esophagitis; Esophageal reflux; BMI 34.0-34.9,adult; Psychophysiological insomnia; Overactive bladder due to prolapse of female genital organStart: 09-04-2024 End: 57-37-4663xmebjeqdxrLKLPERWM FITZPATRICKNot AvailableStart: 09-04-2024 End: 34-77-6844Lrfhjp flowsheetBrittany Groves CANDY VENDOR Work Phone: NOFH CWM FMStart: 09-04-2024 End: 39-87-2335Qltmvv flowsheetBrittany Groves CANDY VENDOR Work Phone: NOMR CWM FMStart: 08-28-2024 End: 47-93-3996ClzyraFdrugtcj Groves CANDY VENDOR Work Phone: noms CWM FMComment on above:FibromyalgiaStart: 08-14-2024 End: 01-21-2519MhxtklMfkunuwn Groves CANDY VENDOR Work Phone: NOPE CWM FMComment on above:FibromyalgiaStart: 08-12-2024 End: 38-72-6911Khayna outpatient visit 25 minutesPascale Arana CANDY VENDOR Work Phone: noms CWM FMComment on above:Acute non-recurrent maxillary sinusitis (Primary Dx); Cigarette nicotine dependence without complication; Class 1 obesity due to excess calories without serious comorbidity in adult, unspecified BMI; Environmental and seasonal allergies; Cutaneous abscess of abdominal wallStart: 08-12-2024 End: 66-77-6105epdgbzpxlpXQFH AICHHOLZNot AvailableStart: 08-12-2024 End: 73-55-8106Bzpmsw flowsheetLisa Aichholz CANDY VENDOR Work Phone: noms CWM FMStart: 08-12-2024 End: 33-33-1460Mpkyns flowsheetLisa Shalaholz CANDY VENDOR Work Phone: noms CWM FMStart: 08-12-2024 End: 02-60-7858Ugcahqwe Result EncounterLisa Shalaholz CANDY VENDOR Work Phone: noms External Department UnsolicitedStart: 08-05-2024 End: 93-82-2919Zqaxlx OnlyTammiemelani Groves CANDY VENDOR Work Phone: noms CWM FMComment on above:B12 deficiency (Primary Dx); Iron deficiency anemia, unspecified iron deficiency anemia typeStart: 08-01-2024 End: 42-05-2786Igxbntekm Result EncounterBrittany Groves CANDY VENDOR Work Phone: noms External Department UnsolicitedStart: 08-01-2024 End: 39-65-1297Swgzltzor Result EncounterBrittany Groves CANDY VENDOR Work Phone: noms External Department UnsolicitedStart: 07-31-2024 End: 56-04-3489Cvnaxr outpatient visit 15 minutesBrmanasa Mathurtrick CANDY VENDOR Work Phone: noms CWM FMComment on above:Iron deficiency anemia secondary to inadequate dietary iron intake (Primary Dx); Fibromyalgia; Psychophysiological insomnia; BMI 34.0-34.9,adultStart: 07-31-2024 End: 70-28-6770zedhgthvzvRLYCMRQR FITZPATRICKNot AvailableStart: 07-31-2024 End: 09-40-2402Uotqtm flowsheetBrittany Groves CANDY VENDOR Work Phone: NOMS CWM FMStart: 07-31-2024 End: 32-09-3885Taocfq flowsheetBrittany Groves CANDY VENDOR Work Phone: NOMS CWM FMStart: 07-25-2024 End: 96-21-4228PgauedTjstebci Groves CANDY VENDOR Work Phone: NOMS CWM FMComment on above:Psychophysiological insomniaStart: 06-25-2024 End: 79-02-2136UbiociRphajpxj Groves CANDY VENDOR Work Phone: NOMS CWM FMComment on above:Psychophysiological insomniaStart: 06-11-2024 End: 09-69-1671Jergra OnlyBrittany Groves CANDY VENDOR Work Phone: NOMS CWM FMComment on above:Fibromyalgia (Primary Dx) Start: 06-03-2024 End: 78-98-3032QftaclHgjpjlbq Groves CANDY VENDOR Work Phone: NOMS CWM FMComment on above:FibromyalgiaStart: 05-27-2024 End: 57-76-6027Tczrdf OnlyBrittany Groves CANDY VENDOR Work Phone: NOMS CWM FMComment on above:Psychophysiological insomnia (Primary Dx)Start: 04-18-2024 End: 98-03-1552ktwsorqfiwCA Tyson Collazo Work Phone: [facility] Work Phone: Start: 04-18-2024 End: 90-36-0163Psvmmyz encounter procedureMD Tyson Collazo Work Phone: [facility] [address] Work Phone: Start: 04-10-2024 End: 62-42-2269Aldqyq outpatient visit 15 minutesBrittany Groves CANDY VENDOR Work Phone: NOMS CWM FMComment on above:Psychophysiological insomnia (Primary Dx); Fibromyalgia; Constipation, unspecified constipation typeStart: 04-10-2024 End: 07-36-4391Uogrow flowsheetBrittany Groves CANDY VENDOR Work Phone: NOMS CWM FMStart: 04-10-2024 End: 92-99-7704Bsewku flowsheetBrittany Groves CANDY VENDOR Work Phone: NOMS CWM FMStart: 03-18-2024 End: 13-50-5182rrymwbwfetOrfviuf A. MouchliFacility:Ron DHStart: 03-18-2024 End: 26-36-7173Hbxchgf encounter procedureRon Palomares 809-9503Xfnrxo-ZcxmkWvumedicine [facility] Start: 03-13-2024 End: 88-69-8208DgtuqsZjxfzifa Groves CANDY VENDOR Work Phone: noMS CWM FMComment on above:Fibromyalgia (Primary Dx) Start: 03-12-2024 End: 58-18-6795Umjcxt outpatient visit 15 minutesBrittany Groves CANDY VENDOR Work Phone: NOMS CWM FMComment on above:Constipation, unspecified constipation type (Primary Dx); FibromyalgiaStart: 03-12-2024 End: 34-90-9483Rgkhol flowsheetBrittany Groves CANDY VENDOR Work Phone: NOMS CWM FMStart: 03-12-2024 End: 78-36-8822Qfxxua flowsheetBrittany Groves CANDY VENDOR Work Phone: NOMS CWM FMStart: 93-90-0905jtimmgvudmHwhtzsg Mouchli Facility:Ron DHStart: 35-49-1402Hgw-patient / Non-visitMD Tyson Collazo Work Phone: [facility] Work Phone: Start: 06-75-1600RksbakTvnlvh Fawwad MD Work Phone: noms CWM FMComment on above:Bipolar disorder with severe depression (CMS/HCC)Start: 07-19-2023 End: 65-25-9232ompadforhnKxgdbyy R NILLFacility::[id number]: 06-07-2023 End: 86-32-8496ztyaajkefgParvvvq R NILLFacility:[facility]ertart: 06-07-2023 End: 21-27-0495Zjyobjv encounter procedureMichael R NILL General Surgery Nill/Said Fredrick Start: 66-35-5295viwjoqknzoCcrshie MouchliFacility:[facility] CenterueStart: 25-07-9395ovwxtkayooIgfqwbd MouchliFacility: NorprafulkStart: 04-07-2023 End: 34-48-9887skoalpkzatTVUPXBJCSelect [facility] Start: 98-38-1853yjuqzjtohxLGXGLRJOMarietta Memorial Hospital Start: 05-31-2022 End: 67-14-8574sldyndggalYS TAMIKO NETTLESFacility:X6Ejajf: 05-10-2022 End: 01-17-0941uswsqctiuhNQ ELLIOT JOSEFacility:D9Crlrc: 04-19-2022 End: 85-87-3016hdlhsdpzwfNDNAOQXT CULLENFacility:K4Lrtbp: 03-29-2022 End: 65-58-4436wavrssneyzNEACRAPB CULLENFacility:W2Hqudh: 03-10-2022 End: 94-00-1287tejthzpxlwBKDXM D [facility]ARFacility:L8Wnvmt: 95-91-8361Kqftvtnjf for preprocedural cardiovascular examinationPETER D [facility] Foundationtart: 19-22-2751Cmrkzqaio for preprocedural laboratory examinationPETER D [facility] HospitalStart: 03-03-2022 End: 46-28-2289xxjfgtqltpSGBON D [facility]ARFacility:D8Fbmff: 03-03-2022 End: 20-66-1269Spynxzkmv for preprocedural laboratory examinationPETER D [facility]ARFacility:C4Nylcq: 02-22-2022 End: 20-71-3097fxzaiefqstWYTPN D [facility]ARFacility:V8Fadoe: 02-09-2022 End: 06-11-2877yyarykoqepSHQES D [facility]ARFacility:A9Uwwhx: 08-30-2021 End: 81-73-9863quupcxbgsnJzdlv Giarielle Other [facility] [place] [employer] Other Start: 96-91-7865Jmtyei outpatient visit 15 minutes Kristin [facility] ClydeStart: 06-07-2021 End: 63-77-0535ksykpsbhgiHK ROBERTO HOUSEFacility:D7Wcnkn: 11-14-2018 End: 99-28-8575Jmbkrcp encounter procedureDEFAULT PHYSICIANFacility:[facility] Procedures DateProcedureProcedure DetailPerforming ClinicianStart: 69-07-4484Ibpio dip stick/tablet rgnt non-auto w/o micrscpNadine Odell Asif MD Work Phone: Start: 76-05-0476DDMBPLC POST VOID RESIDUALNadine Odell Asif MD Work Phone: Start: 04-09-2025 End: 43-32-3445Dubuztuqeusyn w/patient 60 minutesGAD (generalized anxiety disorder)Rohan Waters LPCComment on above:JESSIKA (generalized anxiety disorder) ; Severe episode of recurrent major depressive disorder, without psychotic features (HCC); PTSD (post-traumatic stress disorder)Start: 03-25-2025 End: 40-19-4165Qdstrjdnluqnf w/patient 60 minutesGAD (generalized anxiety disorder)Rohan Waters LPCComment on above:JESSIKA (generalized anxiety disorder) ; Severe episode of recurrent major depressive disorder, without psychotic features (HCC); PTSD (post-traumatic stress disorder)Start: 03-06-2025 End: 79-67-1751Orduzmetlpn diagnostic evaluationGAD (generalized anxiety disorder)Rohan Waters LPCComment on above:JESSIKA (generalized anxiety disorder) ; Severe episode of recurrent major depressive disorder, without psychotic features (HCC); PTSD (post-traumatic stress disorder)Start: 32-37-3749ICE CBC WITH AUTO DIFFLisa Aichholz CANDY VENDOR Work Phone: Start: 54-10-8695WMODPYIOR BLOOD PRESSUREGeneric External Data ProviderStart: 70-88-5887OU FOOT LT MIN 3VGeneric External Data ProviderStart: 00-91-5432VR LUMBAR SPINE WO CONGeneric External Data Provider Start: 31-21-7131Cmn spinal canal cervical w/o contrast matrlGeneric External Data ProviderStart: 01-22-2025 End: 81-52-8689Etivpwckuuh diagnostic eval w/medical servicesGAD (generalized anxiety disorder)Eunice Dias PMP- Work Phone: comment on above:JESSIKA (generalized anxiety disorder) ; Severe episode of recurrent major depressive disorder, without psychotic features (HCC); PTSD (post-traumatic stress disorder) ; Insomnia, unspecified type; Sleep apnea, unspecified type; Encounter for drug screeningStart: 70-03-7302UEN CBC WITH AUTO DIFFLisa Aichholz CANDY VENDOR Work Phone: Start: 76-63-3307WPY,APTIMA HPV,AGE GDLNLisa Aichholz CANDY VENDOR Work Phone: Start: 84-45-1352Oborgrugyqq observation [Identifier] in Cervix by Cyto stainLisa Aichholz CANDY VENDOR Work Phone: Start: 71-89-0590JJ TOMOSYNTHESIS SCREENING BILisa Aichholz CANDY VENDOR Work Phone: Start: 02-48-8365TmzeauwjyolKuzp Aichholz CANDY VENDOR Work Phone: Start: 82-27-4192MRX CBC WITH AUTO DIFFLisa Aichholz CANDY VENDOR Work Phone: Start: 34-75-8411PD FOOT LT WO CONGeneric External Data ProviderStart: 07-02-5792XN FOOT LT MIN 3VGeneric External Data Provider Start: 86-41-6542LPVBMBO WOUND/ULCER (HTRX)Pascale Sumit CANDY VENDOR Work Phone: Start: 51-15-5236AKO CBC WITH AUTO DIFFBrittany Germain CANDY VENDOR Work Phone: Start: 94-81-4558OlaskttffgbYptuhw Fawwad MD Work Phone: Start: 61-35-5494IlbuuhszujbowmjvrdxuccvriiDifelbg NILL Start: 80-07-5400Mhqclh of stomachMichael NILL Start: 62-74-4666Uaxvnxzdijrct cystoscopyMichael NILL Start: 83-31-9823Jrezavsljdjom cystoscopyMichael NILL CholecystectomyMichael NILL H/O: surgeryHistory of reconstructive repair of rectoceleTanya L Muniz DO Work Phone: H/O: surgeryHistory of reconstructive repair of rectoceleNadine C Laya WELLER Work Phone: H/O: surgeryHistory of reconstructive repair of rectoceleKendal Shahab [facility]ITALH/O: surgeryHistory of reconstructive repair of rectoceleNadine C Laya WELLER Work Phone: Ligation of fallopian tubeMichael NILL Repair of cystoceleMichael NILL Plan of Treatment DateCare ActivityDetailAuthorStart: 09-56-7371Btetiwops for malignant neoplasm of colonNOMS HealthcareStart: 67-37-8430Epzumybgl for malignant neoplasm of cervixNOMS HealthcareStart: 73-99-1153Tcdir BMI ScreeningAdult BMI Screening [facility] SystemStart: 62-15-8402Kzerqnb ScreeningTobacco Screening [facility] SystemStart: 12-71-1487Lbsvnzd ScreeningTobacco Screening [facility] SystemStart: 16-00-1521Ddvlz BMI ScreeningAdult BMI Screening [facility] SystemStart: 43-51-4244Mdowpsl ScreeningTobacco Screening [facility] SystemStart: 98-14-8319Oyvos BMI ScreeningAdult BMI Screening [facility] SystemStart: 61-85-9254Ralcmfd ScreeningTobacco Screening [facility] SystemStart: 33-52-0350Dbkxdgblk for malignant neoplasm of breastMaogramTOOELE VALLEY [facility]ITAL HealthcareStart: 06-02-2025 End: 36-60-6061Pvlqfnz encounter ggugtxcxc90/10/2025 3:00 PM EST Office Visit [facility] [address] [facility] [address] [place] [address] Macarena Chang, WIRE SPIRAL BINDER-TAWER [address] [facility] [address] [place], [id number] CHERYL [place] HealthStart: 05-28-2025 End: 85-55-2750Ybrmybw encounter ynnzygbjj22/05/2025 2:30 PM EST Procedure visit [facility] [address] [place] [address] [place] [address] Jovon Asif MD [address] [place] [address] [facility] UrogynStart: 05-21-2025 End: 12-19-1529Hzukzf Work05/21/2025 4:30 PM EDT Social Work NOM[facility] [address] [facility] [address] [place] [address] Rohan Waters LPCNOMS [facility] HealthStart: 05-19-2025 End: 43-84-5679Yfbdwxd encounter mmjaeyyse80/27/2025 3:30 PM EDT Office Visit [facility] [address] [place] [phone] Macarena Chang, WIRE SPIRAL BINDER-TAWER [address] [id number] [facility] HealthStart: 04-30-2025 End: 15-23-1165Ifhlgps encounter vtudhbkpx38/08/2025 4:30 PM EDT Office Visit NOMScottie [facility] [address] [place] [address] Pascale Arana, MARY JO [address] [place] [address] NOMScottie MONSON FMStart: 30-53-8008Wktxssf referralSouthwest General Health Center Work Phone: Start: 04-24-2025 End: 57-41-6172Oieexn Work04/24/2025 4:30 PM EDT Social Work [facility] [address] [place] [phone] Rohan Waters LPCNO [facility] HealthStart: 04-09-2025 End: 12-10-1682Umdtpp WorkROHINIMS [place] Behavioral HealthComment on above:Arrived Start: 04-03-2025 End: 62-48-4475Lcqtlmmkwgti consultation with fpxywiv6904/03/2025 9:00 AM EDT Telemedicine [facility] [address] [place] [address] Eunice Dias, PMHNP-BC [address] [place] [phone] NOMScottie [facility] HealthStart: 04-02-2025 End: 76-15-7482Bwefgnw encounter ynrbnglpw07/10/2025 3:00 PM EDT Office Visit [facility] [address] [place] [address] Jovon Asif MD [address] [place] [address] [facility] UrogynStart: 03-25-2025 End: 68-67-0445Qgongs WorkNOMS [facility] HealthComment on above:Arrived Start: 17-15-6318Xejmyurfp vaccinationNOMS HealthcareStart: 03-06-2025 End: 81-40-5647Taewzn WorkNOMS CI BHComment on above:ArrivedStart: 02-25-2025 End: 29-80-8032AKG W Auto Differential panel - BloodCBC and differential Lab Routine Iron deficiency anemia secondary to inadequate dietary iron intake Expected: 02/25/2025 (Approximate), Expires: 02/25/2026[facility] Work Phone: Comment on above:Expected: 02/25/2025 (Approximate), Expires: 02/25/2026Start: 02-25-2025 End: 32-15-3222Luxi and Iron binding capacity panel - Serum or PlasmaIron level Lab Routine Iron deficiency anemia secondary to inadequate dietary iron intake Expected:02/25/2025 (Approximate), Expires: 02/25/2026NOMS HealthcareComment on above:Expected: 02/25/2025 (Approximate), Expires: 02/25/2026Start: 02-25-2025 End: 61-64-8369Vzwxntd encounter tvkyicixc83/05/2025 11:30 AM EDT Office Visit [facility] [address] [place] [address] Pascale Arana, MARY JO [address] [place] [address] NOMS CWM FMStart: 02-24-2025 End: 90-50-0803Livcyvg encounter procedureNOMS CI BHStart: 02-05-2025 End: 43-30-7139Siygrgy encounter bwkwdbomp60/16/2025 3:20 PM EDT Office Visit [facility] [address] [place] [address] Pascale Arana, CANDY VENDOR [address] [place] [address] NOMS CWM FMStart: 01-22-2025 End: 41-87-4292Pggohxm encounter procedureNOMS CI BHComment on above:Bipolar disorder with severe depression (HCC)Start: 01-07-2025 End: 78-39-4175IWE W Auto Differential panel - BloodCBC and differential Lab Routine Iron deficiency anemia secondary to inadequate dietary iron intake Expected: 01/07/2025 (Approximate), Expires: 01/07/2026[facility] Work Phone: Comment on above:Expected: 01/07/2025 (Approximate), Expires: 01/07/2026Start: 01-07-2025 End: 56-53-7398Bjwumfxkx (Vitamin B12) [Mass/volume] in Serum or PlasmaVitamin B12 Lab Routine B12 deficiency Iron deficiency anemia secondary to inadequate dietary iron intake Expected: 01/07/2025 (Approximate), Expires: 01/07/2026NONJ HealthcareComment on above:Expected: 01/07/2025 (Approximate), Expires: 01/07/2026Start: 01-07-2025 End: 24-18-7924Ziaermag [Mass/volume] in Serum or PlasmaFerritin Lab Routine Iron deficiency anemia secondary to inadequate dietary iron intake Expected: (Approximate), Expires: 01/07/2026[facility] HealthcareComment on above: Expected: 01/07/2025 (Approximate), Expires: 01/07/2026Start: 01-07-2025 End: 17-87-7771Dqfb + transferrin + TIBCIron + transferrin + TIBC Lab Routine Iron deficiency anemia secondary to inadequate dietary iron intake Expected: 01/07/2025 (Approximate), Expires: 01/07/2026[facility] HospitalComment on above: Expected: 01/07/2025 (Approximate), Expires: 01/07/2026Start: 01-06-2025 End: 29-01-7405Qhovwoh encounter procedureNOVENCOR HOSPITALComment on above: Gastroesophageal reflux disease, unspecified whether esophagitis present (Primary Dx); Class 1 obesity due to excess calories without serious comorbidity with body mass index (BMI) of 32.0 to 32.9 in adult; Cigarette nicotine dependence without complicationStart: 11-20-2024 End: 24-89-4592Kkcsxbm encounter iqcepoiwd20/30/2025 3:20 PM EDT Office Visit [facility] [address] [place] [phone] Pascale Arana, MARY JO [address] [place] [phone] [facility] FMStart: 11-20-2024 End: 79-99-3681SZSV PREP TIS PAP AND HR HPV DNATHIN PREP TIS PAP AND HR HPV DNA Pathology and Cytology Routine Well woman exam with routine gynecological exam Expected: 11/20/2024 (Approximate), Expires: 11/20/2025[facility] Work Phone: Comment on above:Expected: 11/20/2024 (Approximate), Expires: 11/20/2025Start: 10-23-2024 End: 44-52-4911Ynozjqu encounter jjxuhstru59/02/2025 5:30 PM EDT Procedure Visit [facility] [address] [place] [phone] Pascale Arana, CANDY VENDOR [address] [place] [address] [facility] FMStart: 38-30-1199Ahcucctmm vaccinationInfluenza Vaccine (#1)[facility] HealthcareComment on above:Postponed from 03/24/2024 (Patient Refused)Start: 10-04-2024 End: 31-72-7741TJP W Auto Differential panel - BloodCBC and differential Lab Routine B12 deficiency Iron deficiency anemia, unspecified iron deficiencyanemia type Expected: 10/04/2024 (Approximate), Expires: 08/06/2025[facility] Work Phone: Comment on above:Expected: 10/04/2024 (Approximate), Expires: 08/06/2025Start: 10-04-2024 End: 53-09-4170Udpkovmfu (Vitamin B12) [Mass/volume] in Serum or PlasmaVitamin B12 Lab Routine B12 deficiency Iron deficiency anemia, unspecified iron deficiency anemia type Expected: 10/04/2024 (Approximate), Expires: 08/06/2025 [facility] HealthcareComment on above:Expected: 10/04/2024 (Approximate), Expires: 08/06/2025Start: 10-04-2024 End: 62-94-7819Pvsfoule [Mass/volume] in Serum or PlasmaFerritin Lab Routine B12 deficiency Iron deficiency anemia, unspecified iron deficiency anemia type Expected: 10/04/2024 (Approximate), Expires: 08/06/2025[facility] HealthcareComment on above:Expected: 10/04/2024 (Approximate), Expires: 08/06/2025Start: 10-04-2024 End: 51-56-8664Ctem + transferrin + TIBCIron + transferrin + TIBC Lab Routine B12 deficiency Iron deficiency anemia, unspecified iron deficiency anemia type Expected: 10/04/2024 (Approximate), Expires: 08/06/2025[facility] Healthcare[facility] on above:Expected: 10/04/2024 (Approximate), Expires: 08/06/2025Start: 10-02-2024 End: 48-54-8778Axelsvx encounter procedureNOMS CWM FMComment on above:Class 1 obesity due to excess calories without serious comorbidity in adult, unspecified BMI (Primary Dx); Iron deficiency anemia secondary to inadequate dietary iron intake; Cigarette nicotine dependence without complication; Encounter for screening mammogram for malignant neoplasm of breast; B12 deficiencyStart: 10-02-2024 End: 68-43-6012NQR W Auto Differential panel - BloodCBC and differential Lab Routine Iron deficiency anemia secondary to inadequate dietary iron ydqbbsM62 deficiency Expected: 10/02/2024 (Approximate), Expires: 10/02/2025[facility] HealthcareComment on above:Expected: 10/02/2024 (Approximate), Expires: 10/02/2025Start: 10-02-2024 End: 51-89-7290Gvfzssqzp (Vitamin B12) [Mass/volume] in Serum or PlasmaVitamin B12 Lab Routine B12 deficiency Expected: 10/02/2024 (Approximate), Expires: 10/02/2025[facility] HealthcareComment on above:Expected: 10/02/2024 (Approximate), Expires: 10/02/2025Start: 10-02-2024 End: 47-67-7632Vwhbrwed [Mass/volume] in Serum or PlasmaFerritin Lab Routine Iron deficiency anemia secondary to inadequate dietary iron intake Expected: (Approximate), Expires: 10/02/2025[facility] HealthcareComment on above: Expected: 10/02/2024 (Approximate), Expires: 10/02/2025Start: 10-02-2024 End: 32-45-0940Alck + transferrin + TIBCIron + transferrin + TIBC Lab Routine Iron deficiency anemia secondary to inadequate dietary iron intake Expected: 10/02/2024 (Approximate), Expires: 10/02/2025[facility] HealthcareComment on above: Expected: 10/02/2024 (Approximate), Expires: 10/02/2025Start: 10-02-2024 End: 56-08-2037OY Breast - bilateral ScreeningBilateral screening mammogram Imaging Routine Encounter for screening mammogram for malignant neoplasm of breast Expected: 10/02/2024 (Approximate), Expires: 12/02/2025[facility] Work Phone: Comment on above:Expected: 10/02/2024 (Approximate), Expires: 12/02/2025Start: 09-04-2024 End: 46-26-6562Qhsfoeg encounter procedureNOMS CWM FMComment on above:Arrived Start: 08-12-2024 End: 33-36-0494Gfreyac encounter /20/2025 4:00 PM EST Office Visit [facility] [address] [place] [address] Pascale Arana, MARY JO [address] [place] [address] ArrivedNOMS CW FMComment on above:ArrivedStart: 08-12-2024 End: 14-73-4619RLERZHFDXVF WOUND (HTRX)SUPERFICIAL WOUND (HTRX) Lab Routine Cutaneous abscess of abdominal wall Expected: 08/12/2024 (Approximate), Expires: 08/12/2025[facility] Work Phone: Comment on above:Expected: 08/12/2024 (Approximate), Expires: 08/12/2025Start: 07-31-2024 End: 16-70-9552Avhpwbw encounter procedureN[facility]S [facility] FMComment on above:Arrived Start: 07-31-2024 End: 23-14-2528Vmtwzhzng (Vitamin B12) [Mass/volume] in Serum or PlasmaVitamin B12 Lab Routine Iron deficiency anemia secondary to inadequate dietary iron intake Expected: 07/31/2024 (Approximate), Expires: 07/31/2025[facility] Healthcare Comment on above:Expected: 07/31/2024 (Approximate), Expires: 07/31/2025Start: 07-31-2024 End: 77-24-6986Hrsyckfl [Mass/volume] in Serum or PlasmaFerritin Lab Routine Iron deficiency anemia secondary to inadequate dietary iron intake Expected: (Approximate), Expires: 07/31/2025[facility] HealthcareComment on above: Expected: 07/31/2024 (Approximate), Expires: 07/31/2025Start: 07-31-2024 End: 88-97-8833Flhr + transferrin + TIBCIron + transferrin + TIBC Lab Routine Iron deficiency anemia secondary to inadequate dietary iron intake Expected: 07/31/2024 (Approximate), Expires: 07/31/2025[facility] HealthcareComment on above: Expected: 07/31/2024 (Approximate), Expires: 07/31/2025Start: 07-10-2024 End: 07-31-2207Jctgvvx encounter /18/2024 4:30 PM EST Office Visit [facility] [address] [place] [address] Angel Luis Groves, CANDY VENDOR [address] [place] [address] [facility] FMStart: 06-05-2024 End: 23-43-8889Wvuxynz encounter ypxejoecl10/13/2024 5:30 PM EST Office Visit [facility] [address] [place] [address] Angel Luis Groves, CANDY VENDOR [address] [place] [address] [facility] FMStart: 04-10-2024 End: 40-22-8028Aqcffsd encounter procedureNOMS CWM FMComment on above:Arrived Start: 37-54-8269Easaainra vaccinationInfluenza Vaccine (#1)[facility] Start: 03-12-2024 End: 73-29-5989Xikacet encounter arqedcruh42/20/2024 3:30 PM EDT Office Visit [facility] [address] [place] [address] Angel Luis Groves, CANDY VENDOR [address] [place] [address] ArrivedNOMS CWM FMComment on above:ArrivedStart: 11-13-2023 End: 04-06-4124Xpyzmbt encounter bpvdqsecy48/22/2024 4:45 PM EDT Office Visit [facility] [address] [place] [address] Shaikh Main MD [address] [facility] [place] [address] [facility] IMStart: 14-44-6946Bfdoesrzw vaccinationInfluenza Vaccine (#1)[facility] HealthcareStart: 94-23-6966Pxxrgixdfmnyel of varicella zoster vaccineZoster (Shingles) Vaccine (1 of 2)[facility] SystemStart: 20-25-7898Jsgaxuauj for malignant neoplasm of breastMammogramNOMS Healthcare Start: 86-68-7705Oasagetyx for malignant neoplasm of cervixNOMS HealthcareStart: 03-68-8779Gamsapacd for malignant neoplasm of cervixPap SmearNOMS Healthcare Start: 07-20-8197BPvH,Tdap and Td Vaccines (1 - Tdap)DTaP,Tdap and Td Vaccines (1 - Tdap)[facility] SystemStart: 29-17-4675Byfax BMI Follow Up PlanAdult BMI Follow Up PlanCarolinaEast Medical Centertart: 05-48-9388Swlatoojio Screening Depression ScreeningRegency Hospital [facility] SystemStart: 10-83-3143Xsqcycieh for malignant neoplasm of colonNOMS HealthcareStart: 07-26-0993Kwrnkmyvq for malignant neoplasm of lungLung Cancer Screening Shared Decision MakingTOOELE VALLEY HOSPITAL HealthcareStart: 95-25-5199Twqekcx CounselingTobacco CounselingGerman HospitalCBC W Auto Differential panel - BloodCBC and differential Lab Routine Iron deficiency anemia secondary to inadequate dietary iron intakeOrdered: 07/31/2024[facility] Work Phone: Comment on above:Ordered: 07/31/2024omprehensive metabolic 2000 panel - Serum or PlasmaSalem City HospitalDRUG TOX MONITORIGN 6 W/ CONF,URINEDRUG TOX MONITORIGN 6 W/ CONF,URINE Lab Routine Encounter for drug screening Ordered: 01/22/2025[facility] Work Phone: comment on above:Ordered: 01/22/2025Electromyography Salem City HospitalPatient referralSouthwest General Health Center Work Phone: Sjogrens syndrome-A extractable nuclear Ab [Units/volume] [facility] [place]-B extractable nuclear Ab [Units/volume] in [facility] Immunizations Immunization DateImmunizationNotesCare ProviderFacilityNEGATED: Highlighted row has not occurred!89-30-1792geggiejtg virus vaccine, unspecified formulation Sgeun HOLLOWAY [facility] [place] Payers DatePayer CategoryPayerPolicy [id number] [employer] [id number] Managed Care - POS [id number] Care HMO (unspecified)[id number].3.331[id number] 2.0.1.657441.3.57[id number] 2.0.1.418770.3.579.2.98375-77-1512Cghlsze5088437 2.0.1.253840.3.579.2.78077-45-5963Ezjaamw8621959 2.0.1.937754.3.579.2.78920-27-5129Epgfwyk1993886 2..840.1.813747.3.579.2.39882-37-9086Bccryop4168744 2.0.1.839585.3.579.2.54234-82-9628Pedyxta6720928 2..840.1.317820.3.579.2.02147-30-4637Uaxfcmk9585024 2.840.1.674922.3.579.2.24086-87-9675Mkrhfvv7648708 2.16840.1.178810.3.579.2.91855-36-3767Reucfpy8514090 2.840.1.553552.3.579.2.57226-48-3973Dmzpxju46037194 2.16840.1.771203.3.579.2.27844-31-8192Yuegfkh27516214 2.840.1.236342.3.579.2.74671-51-7066Gfwnekj00480438 2.0.1.789018.3.579.2.16501-79-3218Spvbmym20860658 2.840.1.253966.3.579.2.56591-69-6839Csrkvvx05276178 2.0.1.828379.3.579.2.07102-62-5674Okyqufs00389858 2.840.1.086112.3.579.2.400113-19-6885Ayooshz61574390 2..1.364648.3.579.2.268845-40-0881Rtzwgmz96461456 2.840.1.672687.3.579.2.937462-83-9630Jzyoncf05713921 2..1.185156.3.579.2.974712-43-8326Gvqvzii96028971 2.840.1.441138.3.579.2.078380-21-4475Efmzkba24496600 2.0.1.961131.3.579.2.608970-60-0488Psikrhc57167038 2.840.1.813886.3.579.2.472846-52-0561Sfydbrz28017773 2.840.1.101540.3.579.2.010052-15-8133Nsosnpd4982370 2..1.429185.3.579.2.621402-96-5278Vznpshx4358141 2..1.638815.3.579.2.298014-57-7103Zlulhih7676032 2..1.970608.3.579.2.639200-11-7582Lfytves7742900 2..1.648387.3.579.2.771889-74-6317Gtwjcwt9816932 2..1.321605.3.579.2.824066-55-6369Wnmxudn9514668 2..1.755369.3.579.2.449493-09-5306Tfhrade927191811 2..1.786335.3.579.2.86366-74-0778Iduekqy610808703 2..1.657764.3.579.2.71463-59-9150Ntonzui669145620 2..1.144401.3.579.2.45139-72-5996Vplzezb342536449 2..1.836884.3.579.2.732011-13-2964Ebvmarx293316213 2..1.267658.3.579.2.651455-35-8984Hrztktg743172902 2..1.504465.3.579.2.813389-45-0449Dnxkycf Health QjcmegclcW827135419 2..1.773439.04LovaoxuJbddsyh42308367 2..1.762055.3.579.2.531 Social History DateTypeDetailFacilityUnknown if ever smokedNorth Bring Light Other Start: 09-03-2020 End: 27-26-0384Ymn [facility]igned At [facility] Hospitaltart: 06-07-2023 End: 20-71-9698Zqamlme smoking statusHeavy tobacco smoker (finding)[facility] HospitalueStart: 94-91-8281Kpmymmv smoking statusFormer smokeless tobacco user, quit more than 30 days agoGeneral Surgery [facility] HospitalueStart: 07-04-2023 End: 84-57-5886Nqxpyzo smoking status NHISSmokes tobacco dailyNOMS Healthcare Start: 53-88-4016Ijpldmn of tobacco useCigarette SmokerNONJ HealthcareStart: 09-03-2020 End: 26-99-4172Slvljrlpve smoked current (pack per day) - Rhjhltal4MTFB HealthcareStart: 07-04-2023 End: 64-48-2941Hrxlfgx use and exposureSmokeless tobacco non-userN[facility]S Healthcare Start: 08-14-2023 End: 94-39-6287Hjacria intakeLifetime non-drinker (finding)[facility] HealthcareWithin the last year, [...] the time - these days [OSQ]To some extentNOMS Healthcare(I/We) worried whether (my/our) food would run out before (I/we) got money to buy more.Never trueNOMS HealthcareStart: 90-95-4795Pjypmvu CommentThinking about quittingNOMS HealthcareStart: 04-24-6620Zkoidkm Commentcaffeine: 3-4 cups per dayNOMS HealthcareStart: 05-92-7621Sev Assigned At BirthNot on fileNOMS HealthcareStart: 16-90-1373Teg [facility]igned At [facility] CenterHistory of tobacco usePassive smokerNOMS HealthcareStart: 01-22-2025 End: 90-73-2543Tvupcvzhp beverage intakeEx-drinker (finding)[facility] Start: 36-05-6338TklMnvpyo (finding)[facility] Centertart: 02-24-2025 End: 01-71-8942Nvhuaavkd beverage intakeCurrent drinker of alcohol (finding) [facility] Goals DatePatient GoalDesired Activity/StatePersonal health goal Functional Status BtnxDymnzyjielSajposYdjmpgsm31-33-9655Cklegrlpnup anxiety disorder 7 item (JESSIKA-7)[facility] HospitalEkocizoagh47-34-8814Spgvhay Health Questionnaire 2 item (PHQ-2) [Reported][facility] HospitalXnmetabqfc89-05-1802UGQ-4 quick depression assessment panel [Reported.PHQ][facility] HospitalHrcertiejk61-01-6607Ygaropatny StatusN/[facility] Jyadqe85-87-6878Xoopjuvcoi StatusN/AGeneral Surgery [place] Clinical Notes 08-30-2021 to 05-28-2025 Note Date & MeruMgmoSlqlkdwd63-15-3995 History of Present illness Narrative* Jovon Asif MD - 05/28/2025 2:30 PM EST CC: ANOOP HPI: Ms. Rutherford is a 55-year-old, referred for [...] diarrhea, fecal incontinence. She is SA. 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 Past [...] kg (173 lb 9.6 oz) BMI 28.45 kg/m Alert, NAD RRR CTA B Abd Soft, [...] mL: No leakage VLPP and CLPP at [facility]: No leakage UPP at 50 mL was 95 cm H2O UPP at [facility] was 81 cm H2O MUCP (maximal urethral [...] good candidate for minimally invasive hysterectomy with [place] tissue repair. Risks, benefits, alternatives discussed at [...] ligament suspension,anterior colporrhaphy, cystoscopy. documented in this encounterGerman Hospital10-29-2025 Telephone encounter Note* Telephone Encounter - Rohan GutierrezEH arshad - 05/21/2025 2:08 PM EDT Clinician spoke to client over the phone, explained resignation, offered transfer/referral options,and warm line phone number. Client shared that she plans to discuss her options further at her nextmedication management appointment. Clinician encouraged client to call [facility] as needed. [facility] HospitalBkmyeqcduo09-75-1833 Miscellaneous Notes* Telephone Encounter - Rohan Waters LPC - 05/21/2025 2:08 PM EDT Clinician spoke to client over the phone, explained resignation, offered transfer/referral options,and warm line phone number. Client shared that she plans to discuss her options further at her nextmedication management appointment. Clinician encouraged client to call [facility] as needed. documented in this encounterRipley County Memorial HospitalHvngiwuffz38-19-8154 Miscellaneous Notes* Telephone Encounter - Areli Gudino [...] to their preferred pharmacy. documented in this encounterGerman Hospital10-10-2025 Telephone encounter Note* Telephone Encounter - Areli Gudino CMA - 05/02/2025 1:01 PM EDT Patient called to say she is on Tolterodine for her OAB but is having worse incontinence. She has UDS scheduled in May but her PCP wants to see if she can be put on something else as the currentmed is the highest dose. Please advise. [facility]10-10-2025 Telephone encounter Note* Telephone Encounter - Jovon Asif MD - 05/02/2025 1:01 PM EDT Myrbetriq 50 milligrams once daily, dispense 30 tablets, 5 refills. [facility]10-10-2025 Telephone encounter Note* Telephone Encounter - Areli Gudino CMA - 05/02/2025 1:01 PM EDT Called patient and sent in Myrbetriq to their preferred pharmacy. [facility]09-11-2025 History of Present illness Narrative* Eunice Dias, PMHNP-BC - 04/03/2025 9:00 AM EDT Images from the original note were not included. HPI: Talia Rutherford is a 54 y.o. female with a history of Fibromyalgia, gastric bypass (2019), sleep apnea (does not wear CPAP), MDD, JESSIKA, PTSD, and Insomnia. Patient is here today for follow-up via telehealth. Location of patient: Home; located in [place] Location of provider: Office; located in [place], [place] Patient seen via: [employer] Telehealth; audio and video utilized Reason for [...] She is recently got established with [facility]an [facility] on March 06 for counseling. She states [...] Practitioner (Behavioral Health) Rohan Waters LPC as [employer]v Parts And Service Director (Behavioral Health) PSYCHIATRIC REVIEW OF SYMPTOMS AND [...] she will need to follow-up with other prison psychiatrist in the future due to medication adjustment [...] recurrent major depressive disorder, without psychotic features ([facility]) PTSD (post-traumatic stress disorder) Insomnia, unspecified [...] care as described above. documented in this encounterRipley County Memorial HospitalCvvfmpnjnn72-73-1493 History of Present illness Narrative* Margot Marsh DO - 04/02/2025 3:00 PM EDT SUBJECTIVE Chief Complaint: cystocele HPI Ms. Talia Rutherford is a , 54 y.o. female who is referred by Shelia Muniz DO for cystocele. The patient reports history of rectocele repair in 2021 at [facility]. She notes a bulge [...] pessary previously. Gynecology provider: Dr. Muniz. 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 She [...] given by office. Patient was given a [employer] voucher to use, this is not to [...] diarrhea, fecal incontinence. She is SA. 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 Past [...] second degree uterine prolapse (Primary) - [facility] - Urogynecology - [place], [place] - Measure post void residual 2. History of reconstructive repair of rectocele - [facility] - Uro[facility]necology - [place], [place] - Measure post void residual 3. Urge urinary incontinence - [facility] - [place], [place] - Measure post void residual She [...] good candidate for minimally invasive hysterectomy with [place] tissue repair. We will discuss further at her next visit. documented in this encounterGerman Hospital09-02-2025 Evaluation note* Diagnosis Onset Date Resolution Status Admit Date Carpal tunnel syndrome of right wrist acuteSeptember 2024 8:29amCervical stenosis of spineacuteSeptember 2024 8:29amPiriformis syndrome of right sideacuteSeptember 2024 8:29am [facility] Work Phone: 1(636) 129-242509-02-2025 Evaluation note* Diagnosis Onset Date Resolution Status Admit Date Carpal tunnel syndrome of right wrist acuteSeptember 2024 8:29amCervical stenosis of spineacuteSeptember 2024 8:29amPiriformis syndrome of right sideacuteSeptember 2024 8:29amClass 1 obesity due to excess calories without serious comorbidity in adultacute April 30, 2025 4:13pmFibromyalgiaacuteOctober 2024 4:13pmGERD without esophagitisacuteOctober 2024 4:13pmIDA (iron deficiency anemia)acuteOctober 2024 4:13pmNicotine dependenceacuteOctober 2024 4:13pm [facility] Work Phone: 1(629) 461-612209-02-2025 Evaluation note* Diagnosis Onset Date Resolution Status [...] 4:13pmAbdominal painacuteOctober 2024 2:21pm BloatingacuteOctober 2024 2:21pm [facility] Work Phone: 1(825) 657-528809-02-2025 Evaluation note* Diagnosis Onset Date Resolution Status [...] 2:21pmIDA (iron deficiency anemia) acuteOctober 2024 2:21pm [facility] Work Phone: 1(935) 971-773908-05-2025 History of Present illness Narrative* Pascale Arana [...] for last several weeks, she has seen prison psychiatrist, meds changed and she is now onVraylar, [...] to start this process documented in this [facility]08-05-2025 Instructions* Patient Instructions* Pascale Arana NP - 02/25/2025 11:30 AM EDT Off work RTW date 03/25/25 documented in this [facility]08-04-2025 History of Present illness Narrative* Eunice [...] Sheis working with the pain specialist at [facility] in hopes to get an epidural in [...] recurrent major depressive disorder, without psychotic features ([facility]) PTSD (post-traumatic stress disorder) Insomnia, unspecified [...] care as described above. documented in this encounterRipley County Memorial HospitalXvkqmynidr11-12-9445 History of Present illness Narrative* Shelia Herrera Flavio, DO - 02/06/2025 2:15 PM EDT Subjective [...] if mesh was utilized documented in this encounterGerman Hospital07-02-2025 History of Present illness Narrative* Eunice Dias PMHNP-BC - 01/22/2025 9:00 AM EDT HPI: [...] smoking cessation Lunesta - did not work [employer] - doesn't recall how this made her [...] (11) who also lives there. 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 Has been with [employer] for 15 years. She states sheis currently [...] the local ER or call Suicide Hotline (408) for any psychosis, suicidal or homicidal ideation, or with any risk of harm to self or others. Patient was seen Face to Face, Total time spent with patient was 60 minutes, which includes reviewing chart documents, previous notes/records, counseling and discussion with patient and/or coordination of care as described above. documented in this encounterRipley County Memorial HospitalOuwjccfzmd96-55-4512 Telephone encounter Note* Telephone Encounter - Pascale Arana NP - 01/06/2025 6:12 PM EDT Pt states she was not contacted about her iron infusion can we check with [facility] about this [place] [facility] HospitalHnvjnrczte47-92-9293 Miscellaneous Notes* Telephone Encounter - Pascale Arana NP - 01/06/2025 6:12 PM EDT Pt states she was not contacted about her iron infusion can we check with [facility] about this [place] documented in this encounterRipley County Memorial HospitalWmxamfsnlw32-27-9595 History of Present illness Narrative* Pascale Arana [...] possible Current med: pantoprazole documented in this encounterRipley County Memorial HospitalQrvehfafxv50-04-6932 Instructions* Patient Instructions* Pascale Arana NP - 01/06/2025 4:30 PM EDT Discontinue the citalopram Start lamotrigine 1 pill at night for 2 weeks, then increase to 1 pill twice a day after that documented in this encounterRipley County Memorial HospitalZvrwglkjsm22-26-6679 Telephone encounter Note* Telephone Encounter - LIZANDRO PICKARD - 12/18/2024 10:48 AM EDT Tho. This is Steve at [facility] calling in regards to 1 of Pascale giraldo's patients. Her name is Talia Gipsno, and we need to clarify some orders with her. She is supposed to be coming later today. Give us a call back as soon as possible. [phone], extension [phone],thank you. [facility] HospitalLpawyvnpgp02-17-9060 Miscellaneous Notes* Telephone Encounter - LIZANDRO PICKARD - 12/18/2024 10:48 AM EDT Tho. This is Steve at [facility] calling in regards to 1 of Pascale giraldo's patients. Her name is Talia Gipson, and we need to clarify some orders with her. She is supposed to be coming later today. Give us a call back as soon as possible. [phone], extension [phone],thank you. documented in this [facility]04-30-2025 History of Present illness Narrative* Pascale Arana NP - 11/20/2024 4:37 PM EDTAssociated Problem(s): Hot flashes due to menopause Discussed insurance concern over dose of celexa, she takes for hot flashes she is willing to trial a decrease in dose to 20mg and will cut her current pill in half * Pascale Araan NP - 11/20/2024 4:32 PM EDTAssociated Problem(s): [...] they will approve Infed, I did contact [facility] 11/19/24 they can order it, [...] nursing note reviewed. Exam conducted with a lightning rod installer present. Constitutional: General: She is not [...] (Adipex-P) 37.5 MG tablet documented in this encounterRipley County Memorial [id number] Instructions* Patient Instructions* Pascale Arana NP - 11/20/2024 3:20 PM EDT Citalopram: currently on 40mg daily, cut pill in half so only at 20mg dose Stop the lanxoprazole, and will trial pantoprazole 40mg daily GERD and if not better at fu appt we will refer to GI We will call about PAP smear results documented in this encounterRipley County Memorial HospitalPphseuuqof12-03-4554 History of Present illness Narrative* Pascale Arana [...] Starting weight was 206 documented in this encounterRipley County Memorial [id number] History of Present illness Narrative* Pascale Arana [...] and sugary drinks. Pt meets qualifications of [facility] 4731-05-27 for weight loss. BMI>30 or >27 with comorbid conditions. Notify office with any symptoms of chest pain, dyspnea, heart palpitations, or any anxiety symptoms. F/U in 4 weeks to document weight loss. Increase physical activity as tolerated, and lower caloric intake to 1600 calories daily if no contraindications OARRS reviewed Started on adipex in 09/17: starting weight 200 lbs documented in this [facility]03-12-2025 Instructions* Patient Instructions* Pascale Arana NP - 10/02/2024 5:00 PM EDT Check labs Mammogram: will send to [facility] PAP documented in this [facility]02-12-2025 Instructions* Patient Instructions* Angel Luis Groves NP - 09/04/2024 5:00 PM EST Keep up the good work!!! documented in this [facility]01-22-2025 Telephone encounter Note* Telephone Encounter - Nupur Oneal - 08/14/2024 11:46 AM EST Patient said her dose was increased and now she is out of this medication. Can you please refill. JN [facility] [id number] Miscellaneous Notes* Telephone Encounter - Nupur Batistafrancisco - 08/14/2024 11:46 AM EST Patient said her dose was increased and now she is out of this medication. Can you please refill. JN documented in this encounterRipley County Memorial HospitalQwwgzzwwsj36-02-4492 History of Present illness Narrative* Pascale Arana [...] Orders SUPERFICIAL WOUND (HTRX) documented in this [facility]01-20-2025 Instructions* Patient Instructions* Pascale Arana NP - 08/12/2024 4:00 PM EST Z pack, finish this Fluids, rest Cont layla and we will add flonase nasal spray Warm compress to affected area, will treat based on culture report documented in this encounterRipley County Memorial HospitalHtatojrpzy76-25-8063 History of Present illness Narrative* Angel Luis [...] (Adipex-P) 37.5 MG tablet documented in this [facility]01-08-2025 Instructions* Patient Instructions* Angel Luis Groves NP - 07/31/2024 3:00 PM EST Notify office with any symptoms of chest pain, dyspnea, heart palpitations, or any anxiety symptoms. F/U in 4 weeks to document weight loss. Increase physical activity as tolerated, and lower caloricintake to 1600 calories daily if no contraindications. documented in this [facility]01-01-2025 History of Present illness Narrative* Angel [...] into month two. Pt meets qualifications of [facility] 4731-05-27 for weight loss. BMI>30 or >27 [...] into month two. Pt meets qualifications of [facility] 4731-05-27 for weight loss. BMI>30 or >27 with comorbid conditions. Blood pressure WNL. Notify office with any symptoms of chest pain, dyspnea, heart palpitations, or any anxiety symptoms. F/U in 4 weeks to document weight loss. Increase physical activity as tolerated, and lower caloric intake to 1600 calories daily if no contraindications. documented in this encounterRipley County Memorial HospitalDxysljugji54-17-9547 Telephone encounter Note* Telephone Encounter - Mar Powers MA - 06/03/2024 9:10 AM EST Pt takes the 60mg in morning and 30 mg in the afternoon, so both. [facility] [id number] Miscellaneous Notes* Telephone Encounter - Mar Powers MA - 06/03/2024 9:10 AM EST Pt takes the 60mg in morning and 30 mg in the afternoon, so both. * Telephone Encounter - Nupur Oneal - 06/03/2024 8:50 AM EST Patient is asking for a 90 day supply. Patient said 60 mg were denied. documented in this encounterRipley County Memorial HospitalWtivqegoll80-89-3369 Telephone encounter Note* Telephone Encounter - Nupur Jm - 06/03/2024 8:50 AM EST Patient is asking for a 90 day supply. Patient said 60 mg were denied. [facility] [id number] History of Present illness Narrative* Angel Luis [...] pain has since resolved. documented in this encounterRipley County Memorial HospitalSfjmeidbfi68-95-5239 History of Present illness Narrative* Angel Luis [...] ABDOMINAL PAIN. PT SCHEDULED TO SEE GI [facility] ON 03/18 AT 1500. ). HPI IS here today for one week follow-up for constipation. Prescrivbed lacutlose at last visit-did not picker tender helper. Went on vacation to in [facility] [place] in [place] for the weekend and had X3 BM's. Denies blood in stool. States she has been stressed recentlty and feels being away heloped her relax and she was finally able to pass BM. Sees GI in [place] on Sunday 03/18 @ 3pm. Still has [...] with GI next week. documented in this encounterRipley County Memorial HospitalHylkcpldrk36-91-3189 Instructions* Patient Instructions* Angel Luis Groves NP - 03/12/2024 3:30 PM EDT Referral sent to Rheumatology- Dr. Muller in [place], [place]- they will call you! Have mammogram completed. Call if you need anything! documented in this encounterRipley County Memorial [id number] NoteChief Complaint consultation for colonoscopy HPI Staff 53 year old female presents on consultation from Dr. Bustamante for colonoscopy. Patient hospitalized in January with HGB of 4.8. At that time, patient was experiencing profound fatigue, dizziness and SOB. EGD was completed and normal. Patient left AMA prior to colonoscopy being completed. States symptomshave resolved. H/H completed 04/24- 9.3.8. She is [...] fibromyalgia, referred for severe anemia, admitted to [facility] in January with hb of 5; [...] mg Cap-DR, 30 mg= (more content not included)...[facility] HospitalComment on above:Result Comment: Electronically Signed By: AMIE WELLER, Segun Graham\Date and Time Signed: 06/07/23 17:17 [id number] Evaluation + Plan note Diagnostic Tests Pending * Iron Level 06/07/23 * Ferritin 06/07/23 * Vitamin B12 Level 06/07/23 General Surgery [place] 09-15-2023 NoteCardiology Clinic Note Subjective Talia Rutherford [...] Palpitations -Resolved, likely exacerbated (more content not included)...[facility]09-15-2023 NotePatient here for 2 mo follow up [...] Systems All other systems reviewed and are negative.[facility] 02-08-2023 NoteCardiovascular Medicine [place] [facility] SUBJECTIVE Chief Complaint Patient presents with [...] 6 weeks (around 03/22/2023). Carol Webb APRN-[facility]11[facility]2022 Note PROCEDURE: XR FOOT LT MIN 3 [...] Electronically authenticated by: TAMIKO NETTLES Date: 2022-05-31 20:30[facility]10-19-2022 NotePROCEDURE: XR FOOT LT MIN 3 [...] Electronically authenticated by: ELLIOT JOSE Date: 2022-05-11 16:14[facility]09-27-2022 NotePROCEDURE: XR FOOT LT MIN 3 [...] Electronically authenticated by: TAMIKO NETTLES Date: 2022-04-19 18:16[facility]09-07-2022 NotePROCEDURE: XR FOOT LT MIN 3 [...] TAMIKO NETTLES Date: 2022-03-30 06:41[facility] [id number] NotePROCEDURE: XR FOOT LT MIN 3 VIEWS [...] Electronically authenticated by: ELLIOT JOSE Date: 2022-03-11 08:26[facility]08-19-2022 NotePROCEDURE: XR FOOT LT 2V HISTORY: Pain COMPARISON: XR foot left 02/09/2022 FINDINGS: BONES:Multiple intraoperative images demonstrate mechanical fusion of the second and third tarsal-metatarsal joints. SOFT TISSUES:Expected intraoperative findings. EFFUSION:None visible. OTHER: Negative. IMPRESSION: 1. Mechanical fusion of second and third tarsal-metatarsal joints. Electronically authenticated by: ELLIOT JOSE Date: 2022-03-11 07:55[facility]07-21-2022 NotePROCEDURE: XR FOOT LT MIN 3 VIEWS COMPARISON: 12/15/2020 HISTORY: Pain FINDINGS: BONES:No acute fracture or dislocation. Stable moderate degenerative changes most significant at the tarsometatarsal joints. Moderate plantar enthesopathic spurring of the calcaneus SOFT TISSUES:Negative. No visible soft tissue swelling. EFFUSION:None visible. OTHER: Negative. IMPRESSION: Stable moderate degenerative changes Electronically authenticated by: TAMIKO NETTLES Date: 2022-02-10 07:37[facility] [id number] Evaluation note* Encounter Date Diagnosis Assessment Notes [...] Patient care instructions given in writting by [facility] Care At Home document Bitstamp Other Evaluation note* Diagnosis Bipolar disorder with severe depression (CMS/HCC) documented in this encounter [facility] HealthcareEvaluation noteNo assessment information availableSycamore Medical Center Work Phone: Evaluation note* Diagnosis [...] in full remission, most recent episode depressed (CMS/[facility]) Psychophysiological insomnia Persistent disorder of initiating [...] gastric bypass Bipolar disorder with severe depression ([facility]/HCC) Encounter for screening mammogram for breast cancer- Primary Screening for diabetes mellitus Seizure-like activity ([facility]) Fluid level behind tympanic membrane of [...] Primary Screening for diabetes mellitus Seizure-like activity ([facility]/HCC) Fluid level behind tympanic membrane of both [...] 33.0-33.9,adult- Primary Bipolar disorder with severe depression ([facility]/HCC) Fibromyalgia Unspecified myalgia and myositis Gastro-esophageal reflux disease without esophagitis Esophageal reflux BMI 34.0-34.9,adult Psychophysiological insomnia Persistent disorder of initiating or maintaining sleep Overactive bladder due to prolapse of female genital organ documented in this encounter [facility] HealthcareEvaluation note* Diagnosis Breast screening- Primary Breast screening, unspecified Bipolar disorder, in full remission, most recent episode depressed ([facility]/HCC) Psychophysiological insomnia Persistent disorder of initiating or maintaining sleep B12 deficiency Fibromyalgia Unspecified myalgia and myositis Screening mammogram for breast cancer Bipolar disorder, current episode depressed, severe, without psychotic features ([facility]/HCC) Psychophysiological insomnia Persistent disorder of initiating or [...] gastric bypass Bipolar disorder with severe depression ([facility]/HCC) Encounter for screening mammogram for breast cancer- [...] unspecified site Bipolar disorder with severe depression ([facility]/HCC) Antibiotic-induced yeast infection Cutaneous abscess of groin B12 deficiency- Primary Psychophysiological insomnia Persistent disorder of initiating or maintaining sleep Iron deficiency anemia secondary to inadequate dietary iron intake History of gastric bypass Bipolar disorder with severe depression (CMS/HCC) Encounter for screening mammogram for breast cancer- Primary Screening for diabetes mellitus Seizure-like activity ([facility]/HCC) Fluid level behind tympanic membrane of both [...] 33.0-33.9,adult- Primary Bipolar disorder with severe depression ([facility]/HCC) Fibromyalgia Unspecified myalgia and myositis Gastro-esophageal reflux [...] of tympanic membranes documented in this encounter [facility] HealthcareEvaluation note* Diagnosis Breast screening- Primary [...] Primary Screening for diabetes mellitus Seizure-like activity ([facility]/HCC) Fluid level behind tympanic membrane of both [...] deficiency BMI 32.0-32.9,adult documented in this encounter [facility] HealthcareEvaluation note* Diagnosis Breast screening- Primary Breast [...] whether esophagitis present documented in this encounter [facility] HealthcareEvaluation note* Diagnosis Breast screening- Primary [...] Primary Screening for diabetes mellitus Seizure-like activity ([facility]) Fluid level behind tympanic membrane of [...] in full remission, most recent episode depressed ([facility]/HCC) Psychophysiological insomnia Persistent disorder of initiating or [...] in full remission, most recent episode depressed ([facility]/HCC) Psychophysiological insomnia Persistent disorder of initiating or maintaining sleep B12 deficiency Fibromyalgia Unspecified myalgia and myositis Screening mammogram for breast cancer Bipolar disorder with severe depression ([facility]/HCC)- Primary Psychophysiological insomnia Persistent disorder of initiating [...] gastric bypass Bipolar disorder with severe depression ([facility]) Encounter for screening mammogram for breast cancer- Primary Screening for diabetes mellitus Seizure-like activity ([facility]) Fluid level behind tympanic membrane of [...] of tympanic membranes documented in this encounter [facility] HealthcareEvaluation note* Diagnosis Breast screening- Primary Breast [...] due to menopause documented in this encounter [facility] HealthcareEvaluation note* Diagnosis Breast screening- Primary Breast screening, unspecified Bipolar disorder, in full remission, most recent episode depressed ([facility]/HCC) Psychophysiological insomnia Persistent disorder of initiating or maintaining sleep B12 deficiency Fibromyalgia Unspecified myalgia and myositis Screening mammogram for breast cancer Bipolar disorder with severe depression ([facility]/HCC)- Primary Psychophysiological insomnia Persistent disorder of initiating [...] gastric bypass Bipolar disorder with severe depression ([facility]) Encounter for screening mammogram for breast [...] of tympanic membranes documented in this encounter [facility] HealthcareEvaluation note* Diagnosis Breast screening- Primary [...] Primary Screening for diabetes mellitus Seizure-like activity ([facility]) Fluid level behind tympanic membrane of [...] Primary Screening for diabetes mellitus Seizure-like activity ([facility]) Fluid level behind tympanic membrane of [...] of tympanic membranes documented in this encounter [facility] HealthcareEvaluation note* Diagnosis Cystocele with second degree uterine prolapse- Primary History of reconstructive repair of rectocele Urge urinary incontinence Urge incontinence Incomplete emptying of bladder Incomplete bladder emptying Atrophic vaginitis Postmenopausal atrophic vaginitis documented in this encounter [facility] SystemEvaluation note* Diagnosis Breast screening- Primary Breast [...] Cervical stenosis of spine acuteSeptember 2024 8:29am [facility] Work Phone: Evaluation note* Diagnosis Breast [...] myalgia and myositis documented in this encounter [facility] HealthcareEvaluation note* Diagnosis Cystocele with second degree uterine prolapse- Primary History of reconstructive repair of rectocele Urge urinary incontinence Urge incontinence documented in this encounter [facility]* Diagnosis Breast screening- Primary Breast [...] Posttraumatic stress disorder documented in this encounter [facility] HealthcareEvaluation note* Diagnosis Cystocele with second degree uterine prolapse- Primary History of reconstructive repair of rectocele Urge urinary incontinence Urge incontinence documented in this encounter [facility]* Diagnosis Urge urinary incontinence- Primary Urge incontinence Cystocele with second degree uterine prolapse History of reconstructive repair of rectocele documented in this encounter [facility] SystemHistory general Narrative - Reported* Type Description Date Medical History anxiety Medical HistoryGERD Bitstamp Other Hospital course Narrative No data available for this section General Surgery [facility] Discharge instructions No data available for this section General Surgery [facility] Instructions* Attachments The following attachments cannot be sent through Care Everywhere. * Pelvic floor muscle exercises ([place]) documented in this encounterProEncompass Health [facility] SURF Communication Solutions SystemInstructionsNot on file documented in this encounterProEncompass Health [facility] SUR[employer] Communication Solutions SystemInstructionsNot on file documented in this encounterProTrihealthCloudFX SystemInstructionsNot on file documented in this encounterWexner Medical CenterCloudFX SystemProgress note No data available for this section General Surgery [facility] Reason for referral (narrative)* Consultation (Routine) - Pending ReviewSpecialtyDiagnoses / ProceduresReferred By ContactReferred To ContactRheumatology Diagnoses Fibromyalgia Procedures [place] OFFICE/OUTPATIENT [facility] 60 MINUTES Angel Luis Groves NP [address] [place] [phone] Tyson Collazo MD [address] [place] [address] Referral IDStatusReasonStart DateExpiration DateVisits RequestedVisits [id number] Review Specialty Services Required / Scheduling Instructions Please include OV note from today And labs from 07/28/2023 [facility] HealthcareReason for referral (narrative)No reason for referral information availableSouthwest General Health Center Work Phone: Reason for visit Narrative* Consultation (Routine) - ClosedSpecialtyDiagnoses / ProceduresReferred By ContactReferred To Contact Urogynecology / Gynecology Diagnoses Cystocele with second degree uterine prolapse History of reconstructive repair of rectocele Urge urinary incontinence Shelia Muniz DO [address] [place] [address] Phone: tel: fax: Jovon Asif MD [address], [address] [address] Phone: tel: fax: Referral IDStatusReasonStart DateExpiration DateVisits RequestedVisits [id number] Specialty Services Required / [facility] Summary Purpose Family History Relationship Condition Age at Onset Recorded Date/T arlet father Diabetes mellitus Unknown History of strokeUnknownHypertensionUnknownHeart diseaseUnknownDeceasedUnknown motherDeceasedUnknownDiabetes mellitusUnknown Relationship Condition Age at Onset Recorded Date/T arlet father Diabetes mellitus Unknown Heart diseaseUnknownDeceasedUnknownHistory of strokeUnknownHypertensionUnknown motherDiabetes mellitusUnknownmaternal grandmotherMalignant neoplasm of thyroid glandUnknownfamily memberMalignant neoplasm of breastUnknown Advance Directives Advance Directive Response Recorded Date/ Time Advance Directives No March 1:42pm Advance Directive Response Recorded Date/ Time Advance Directives No March 7:38pm Advance Directive Response Recorded Date/ Time Advance Directives No March 6:38pm Chief Complaint and Reason for Visit Chief [...] :21pm Bloating May 05, 2025 2 :21pm Chief Complaint Admit Date Spinal stenosis, cervical [...] :21pm CARA (iron deficiency anemia) April 2:21pm Additional Source Comments INFORMATION SOURCE (unrecogn ized section and content) DATE CREATED AUTHOR 11/16/2018 [facility] DATE CREATED AUTHOR AUTHOR'S ORGANIZ ATION 06/05/2022 [facility] DATE CREATED AUTHOR AUTHOR'S ORGANIZ ATION 04/09/2023 [facility] DATE CREATED AUTHOR AUTHOR'S ORGANIZ ATION 03/20/2024 [facility] DATE CREATED AUTHOR AUTHOR'S ORGANIZ ATION 04/11/2025 [facility] DATE CREATED AUTHOR AUTHOR'S ORGANIZ ATION 05/04/2025 [facility] DATE CREATED AUTHOR AUTHOR'S ORGANIZ ATION 05/10/2025 [facility] DATE CREATED AUTHOR AUTHOR'S ORGANIZ ATION 05/30/2025 [facility] REASON FOR VISIT (unrecogniz ed section and content) ReasonCommentsMed RefillReasonOnset DateCommentsMed [id number] DateCommentsMed Jouved6906/25/2024easonCommentsFollow-upCONSTIPATION, PT HAS HAD THREE BM'S SINCE LAST VISIT. PT IS STILL HAVING ABDOMINAL PAIN. PT SCHEDULED TO SEE GUDELIA GONZALEZ ON 03/18 AT 1500.ReasonCommentsFollow-upReasonOnset DateComments Med Wdbrob6407/25/2024ReasonCommentsFollow-up3 mHot flashesReasonCommentsSore ThroatReasonOnset DateCommentsMed Bxmuvo5508/14/2024ReasonCommentsWeight Check ReasonOnset DateCommentsMed Fozcun6709/06/2024ReasonOnset DateCommentsMed Refill 10/23/2024ReasonOnset DateCommentsMed Aejfnr7311/18/2024ReasonCommentsWeight Check ReasonCommentsPsychiatric EvaluationSpecialtyDiagnoses / ProceduresReferred By ContactReferred To ContactBehavioral Health Diagnoses Bipolar disorder with severe depression (HCC) Procedures [place] OFFICE/OUTPATIENT NEW [facility]IGH [facility] 60 MINUTES Pascale Arana, MARY JO [address] [place] [address] Phone: tel: fax: Eunice Dias, PMHNP-BC [facility] [address] [place] [address] Phone: tel: fax: Referral IDStatusReasonStart DateExpiration DateVisits RequestedVisits [id number] Specialty Services Required [id number] PatientNew Patient presents for evaluation of a possible rectocele.ReasonCommentsMed ManagementFollow-upReason CommentsBipolar disorder with severe depressionReasonCommentsAnxietyDepression PTSD (Post-Traumatic Stress Disorder)ReasonCommentsFollow-upMed Management Sleeping ProblemPTSD (Post-Traumatic Stress Disorder)AnxietyReasonComments DepressionAnxietyPTSD (Post-Traumatic Stress Disorder)ReasonCommentsProcedure Patient Care team informatio n (unrecognized section [...] Molina De Anda MD [address] [place] [phone] PCP - GeneralFamily Medicine02/21/24 Angel Luis Groves NP [address] [place] [phone] Nurse PractitionerMadison County Health Care Systemly Medicine02/21/24Team MemberRelationshipSpecialtyStart DateEnd Date Molina De Anda MD [address] [place] [address] PCP - [facility]02/21/24 Angel Luis Groves NP [address] [place] [address] Nurse PractitionerTaylor [facility]02/21/24Team MemberRelationshipSpecialtyStart DateEnd Date Molina De Anda MD [address] [place] [address] PCP - [facility]02/21/24 Angel Luis Groves NP [address] [place] [address] Nurse PractitionerTaylor [facility] Hospital02/21/24Team MemberRelationshipSpecialtyStart DateEnd Date Molina De Anda MD [address] [place] [address] PCP - [facility]02/21/24 Angel Luis Groves, MARY JO [address] [place] [address] Nurse PractitionerTaylor [facility]02/21/24Team MemberRelationshipSpecialtyStart DateEnd Date Molina De Anda MD [address] [place] [address] PCP - [facility]02/21/24 Angel Luis Groves NP [address] [place] [address] Nurse PractitionerTaylor [facility] Hospital02/21/24Team MemberRelationshipSpecialtyStart DateEnd Date Molina De Anda MD [address] [place] [address] [facility]02/21/24 Angel Luis Groves NP [address] [place] [address] Nurse PractitionerTaylor [facility] Hospital02/21/24Team MemberRelationshipSpecialtyStart DateEnd Date Molina De Anda MD [address] [place] [address] PCP - [facility]24 Angel Luis Groves, MARY JO [address] [place] [address] Nurse PractitionerTaylor [facility] Hospital02/21/24Team MemberRelationshipSpecialtyStart DateEnd Date Molina De Anda MD [address] [place] [address] [facility]21/24 Angel Luis Groves, MARY JO [address] [place] [address] Nurse PractitionerTaylor [facility]02/21/24Team MemberRelationshipSpecialtyStart DateEnd Date Molina De Anda MD [address] [place] [address] PCP - [facility]02/21/24 Angel Luis Groves, MARY JO [address] [place] [address] Nurse Pract[facility]erTaylor [facility]02/21/24Team MemberRelationshipSpecialtyStart DateEnd Date Molina De Anda MD [address] [place] [address] PCP - [facility]02/21/24 Angel Luis Groves NP [address] [place] [address] Nurse Pract[facility]02/21/24Team MemberRelationshipSpecialtyStart DateEnd Date Molina De Anda MD [address] [place] [address] PCP - [facility]02/21/24 Angel Luis Groves, MARY JO [address] [place] [address] Nurse Pract[facility]02/21/24Team MemberRelationshipSpecialtyStart DateEnd Date Molina De Anda MD [address] [place] [address] PCP - [facility]02/21/24 Angel Luis Groves NP [address] [place] [address] Nurse Pract[facility]02/21/24Team MemberRelationshipSpecialtyStart DateEnd Date Molina De Anda MD [address] [place] [address] PCP - Generalmi Medicine02/21/24 Angel Luis Groves NP [address] [place] [address] Nurse Pract[facility]02/21/24Team MemberRelationshipSpecialtyStart DateEnd Date Molina De Anda MD [address] [place] [address] PCP - [facility]02/21/24 Angel Luis Groves, MARY JO [address] [place] [address] Nurse Pract[facility]02/21/24Team MemberRelationshipSpecialtyStart DateEnd Date Molina De Anda MD [address] [place] [address] PCP - Generalmi Medicine02/21/24 Angel Luis Groves, MARY JO [address] [place] [address] Nurse [facility]02/21/24Team MemberRelationshipSpecialtyStart DateEnd Date Molina De Anda MD [address] [place] [address] PCP - [facility]02/21/24 Angel Luis Groves NP [address] [place] [address] Nurse [facility]02/21/24Team MemberRelationshipSpecialtyStart DateEnd Date Molina De Anda MD [address] [place] [address] PCP - [facility]02/21/24 Angel Luis Groves NP [address] [place] [address] Nurse [facility]02/21/24Team MemberRelationshipSpecialtyStart DateEnd Date Molina De Anda MD [address] [place] [address] PCP - [facility]02/21/24 Angel Luis Groves NP [address] [place] [address] Nurse Pract[facility]02/21/24Team MemberRelationshipSpecialtyStart DateEnd Date Molina De Anda MD [address] [place] [address] PCP - [facility]02/21/24 Angel Luis Groves NP [address] [place] [address] Nurse [facility]02/21/24Team MemberRelationshipSpecialtyStart DateEnd Date Molina De Anda MD [address] [place] [address] PCP - GeneralFamily Medicine02/21/24 Angel Luis Groves NP [address] [place] [address] [facility]02/21/24Team MemberRelationshipSpecialtyStart DateEnd Date Molina De Anda MD [address] [place] [address] PCP - Generalmi Medicine02/21/24 Angel Luis Groves NP [address] [place] [address] Nurse [facility]02/21/24Team MemberRelationshipSpecialtyStart DateEnd Date Molina De Anda MD [address] [place] [address] PCP - Generalmily Medicine02/21/24 Angel Luis Groves, MARY JO [address] [place] [address] [facility]02/21/24Team MemberRelationshipSpecialtyStart DateEnd Date Molina De Anda MD [address] [place] [address] PCP - GeneralFamily Medicine02/21/24 Angel Luis Groves NP [address] [place] [address] Nurse [facility]02/21/24Team MemberRelationshipSpecialtyStart DateEnd Date Molina De Anda MD [address] [place] [address] PCP - [facility]02/21/24 Angel Luis Groves NP [address] [place] [address] Nurse [facility]02/21/24Team MemberRelationshipSpecialtyStart DateEnd Date Molina De Anda MD [address] [place] [address] PCP - [facility]02/21/24 Angel Luis Groves NP [address] [place] [address] Nurse [facility]02/21/24Team MemberRelationshipSpecialtyStart DateEnd Date Molina De Anda MD [address] [place] [address] PCP - [facility]02/21/24 Angel Luis Groves NP [address] [place] [address] Nurse [facility]02/21/24Team MemberRelationshipSpecialtyStart DateEnd Date Molina De Anda MD [address] [place] [address] PCP - [facility]02/21/24 Angel Luis Groves NP [address] [place] [address] Nurse [facility]02/21/24Team MemberRelationshipSpecialtyStart DateEnd Date Molina De Anda MD [address] [place] [address] PCP - [facility]02/21/24 Angel Luis Groves NP [address] [place] [address] Nurse [facility]02/21/24Team MemberRelationshipSpecialtyStart DateEnd Date Molina De Anda MD [address] [place] [address] PCP - [facility]02/21/24 Angel Luis Groves NP [address] [place] [address] Nurse [facility]02/21/24Team MemberRelationshipSpecialtyStart DateEnd Date Molina De Anda MD [address] [place] [address] PCP - [facility]02/21/24 Angel Luis Groves NP [address] [place] [address] Nurse [facility]02/21/24Team MemberRelationshipSpecialtyStart DateEnd Date Molina De Anda MD [address] [place] [address] PCP - GeneralFamily Medicine02/21/24 Angel Luis Groves NP [address] [place] [address] Nurse [facility]02/21/24Team MemberRelationshipSpecialtyStart DateEnd Date Molina De Anda MD [address] [place] [address] PCP - Generalmi Medicine02/21/24 Angel Luis Groves NP [address] [place] [address] Nurse [facility]02/21/24Team MemberRelationshipSpecialtyStart DateEnd Date Molina De Anda MD [address] [place] [address] PCP - GeneralFami Medicine02/21/24 nAgel Luis Groves NP [address] [place] [address] Nurse [facility]02/21/24Team MemberRelationshipSpecialtyStart DateEnd Date Molina De Anda MD [address] [place] [address] PCP - [facility]02/21/24 Angel Luis Groves NP [address] [place] [address] Nurse [facility]02/21/24Team MemberRelationshipSpecialtyStart DateEnd Date Molina De Anda MD [address] [place] [address] PCP - [facility]02/21/24 Angel Luis Groves NP [address] [place] [address] Nurse [facility]02/21/24Team MemberRelationshipSpecialtyStart DateEnd Date Molina De Anda MD [address] [place] [address] PCP - [facility]02/21/24 Angel Luis Groves NP [address] [place] [address] Nurse [facility]02/21/24Team MemberRelationshipSpecialtyStart DateEnd Date Molina De Anda MD [address] [place] [address] PCP - [facility]02/21/24 Angel Luis Groves NP [address] [place] [address] Nurse [facility]02/21/24Team MemberRelationshipSpecialtyStart DateEnd Date Molina De Anda MD [address] [place] [address] PCP [facility]02/21/24 Angel Luis Groves NP [address] [place] [address] Nurse [facility]02/21/24Team MemberRelationshipSpecialtyStart DateEnd Date Molina De Anda MD [address] [place] [address] PCP - [facility]02/21/24 Angel Luis Groves NP [address] [place] [address] Nurse Pract[facility]02/21/24Team MemberRelationshipSpecialtyStart DateEnd Date Molina De Anda MD [address] [place] [address] PCP - [facility]02/21/24 Angel Luis Groves NP [address] [place] [address] Nurse [facility]02/21/24 Eunice Dias [facility] [address] [facility] [address] [place] [address] Nurse [facility]01/22/25Team MemberRelationshipSpecialtyStart DateEnd Date Molina De Anda MD [address] [place] [address] PCP - [facility]02/21/24 Angel Luis Groves NP [address] [place] [address] Nurse [facility]02/21/24 Eunice Dias [facility] [address] [facility] [address] [place] [address] Nurse PractitionerBehavioral Health01/22/25Team MemberRelationshipSpecialtyStart DateEnd Date Molina De Anda MD [address] [place] [address] PCP - GeneralFamily Medicine02/21/24 Angel Luis Groves, MARY JO [address] [place] [address] Nurse PractitionerFamily Medicine02/21/24 Eunice Dias [facility] [address] [place] [address] [place] [address] Nurse Practitionerhavioral Health01/22/25Team MemberRelationshipSpecialtyStart DateEnd Date No Pcp, [place] [address] PCP - GeneralFamily Medicine11/21/18Team MemberRelationshipSpecialtyStart DateEnd Date Molina De Anda MD [address] [place] [address] PCP - GeneralFamily Medicine02/21/24 Angel Luis Groves, MARY JO [address] [place] [address] Nurse Practitionermily Medicine02/21/24 Eunice Dias [facility] [address] [facility] [address] [place] [address] Nurse PractitionerBehavioral Health01/22/25Team MemberRelationshipSpecialtyStart DateEnd Date Molina De Anda MD [address] [place] [address] PCP - GeneralFamily Medicine02/21/24 Angel Luis Groves, MARY JO [address] [place] [address] Nurse [facility]02/21/24 Eunice Dias [facility] [address] [facility] [address] [place] [address] Nurse [facility]01/22/25Te MemberRelationshipSpecialtyStart DateEnd Date Moilna De Anda MD [address] [place] [address] PCP - [facility]02/21/24 Angel Luis Groves NP [address] [place] [address] Nurse [facility]02/21/24 Eunice Dias [facility] [address] [facility] [address] [place] [address] Nurse [facility]01/22/25Te MemberRelationshipSpecialtyStart DateEnd Date Molina De Anda MD [address] [place] [address] PCP - [facility]02/21/24 Angel Luis Groves, MARY JO [address] [place] [address] Nurse [facility]02/21/24 Eunice Dias [facility] [address] [facility] [address] [place] [address] Nurse Practitionerhavioral Health01/22/25Team MemberRelationshipSpecialtyStart DateEnd Date Molina De Anda MD [address] [place] [address] PCP - GeneralFamily Medicine02/21/24 Angel Luis Groves, MARY JO [address] [place] [address] Nurse [facility]Mad[facility]02/21/24 Eunice Dias, [facility] [address] [facility] [address] [place] [address] Nurse [facility]01/22/25Team MemberRelationshipSpecialtyStart DateEnd Date No Pcp, [place] [address] PCP - GeneralFamily Medicine11/21/18Team MemberRelationshipSpecialtyStart DateEnd Date Molina De Anda MD [address] [place] [address] PCP - GeneralFamily Medicine02/21/24 Angel Luis Groves, CANDY VENDOR [address] [place] [address] [facility]02/21/24 Eunice Dias, [facility] [address] [facility] [address] [place] [address] Nurse Practitionerhavioral Health01/22/25Team MemberRelationshipSpecialtyStart DateEnd Date Molina De Anda MD [address] [place] [address] PCP - [facility]02/21/24 Angel Luis Groves NP [address] [place] [address] Nurse [facility]02/21/24 [facility] [address] [facility] [address] [place] [address] Nurse [facility]01/22/25Te MemberRelationshipSpecialtyStart DateEnd Date Molina De Anda MD [address] [place] [address] PCP - [facility]02/21/24 Angel Luis Groves NP [address] [place] [address] Nurse [facility]02/21/24 [facility] [address] [facility] [place] [address] Nurse [facility]01/22/25Te MemberRelationshipSpecialtyStart DateEnd Date Molina De Anda MD [address] [place] [address] PCP - [facility]02/21/24 Angel Luis Groves NP [address] [place] [address] Nurse Pract[facility]02/21/24 Eunice Dias [facility] [address] [facility] [address] [place] [address] Nurse PractitionerBehavioral Health01/22/25 MattRohan arshad LPC Social WorkerM[facility]03/06/25 Team Status: Active Member Role Status Dates Pascale Arana Primary Care Provider Active Team Status: Inactive Member Role Status Dates Shun Arshad MD Attending Provider Active Star t: March 25, 2025 End: March 25, 2025Lisa Bang [facility]Primary [facility] Care ProviderActiveStart: March 25, 2025 End: March 25, 2025Team MemberRelationshipSpecialtyStart DateEnd Date Molina De Anda MD PCP - GeneralFamily Medicine02/21/24 Angel Luis Groves, MARY JO Nurse PractitionerMad[facility] Care Systemly Medicine02/21/24 Eunice Dias [facility] [address] [facility] [address] [place] [address] Nurse [facility]01/22/25 Roahn Waters BACK FILLER OPERATOR Social WorkerM[facility] Hospital03/06/25Team MemberRelationshipSpecialtyStart Date End Date Molina De Anda MD PCP - GeneralFamily Medicine02/21/24 Angel Luis Groves, MARY JO Nurse PractitionerFavaly Medicine02/21/24 Eunice Dias [facility] [address] [facility] [address] [place] [address] Nurse PractitionerBehavioral Health01/22/25 Rohan Waters LPC Social WorkerBehavioral Health03/06/25Team MemberRelationshipSpecialtyStart Date End Date Molina De Anda MD PCP - GeneralFamily Medicine02/21/24 Angel Luis Groves NP Nurse PractitionerFamily Medicine02/21/24 Eunice Dias [facility] [address] [address] [place] [address] Nurse PractitionerBehavioral Health01/22/25 Rohan Waters LPC Social WorkerBehavioral Health03/06/25Team MemberRelationshipSpecialtyStart Date End Date Pascale Arana, WIRE SPIRAL BINDER-GRAIN GRADER [facility] [place] [address] PCP - GeneralNurse Practitioner04/02/25Team MemberRelationshipSpecialtyStart Date End Date Molina De Anda MD PCP - GeneralFamily Medicine02/21/24 Angel Luis Groves NP Nurse PractitionerFamily Medicine02/21/24 Eunice Dias [facility] [address] [facility] [place] [address] Nurse PractitionerBehavioral Health01/22/25 Rohan Waters LPC Social WorkerBehavioral Health03/06/25Team MemberRelationshipSpecialtyStart Date End Date Molina De Anda MD PCP - GeneralFavaly Medicine02/21/24 Angel Luis Groves NP [facility] Medicine02/21/24 Eunice Dias [facility] [address] [place] [address] Nurse Pract[facility]erM[facility]01/22/25 Rohan Waters LPC Social WorkerM[facility]03/06/25 Team Status: Active Member Role Status Dates Pascale Arana CANDY VENDOR-C Primary Care Provider Active Team Status: Inactive Member Role Status Dates Shun Arshad MD Attending Provider Active Star t: March 25, 2025 End: March 25, 2025Pascale Arana NP-CPrimary Care ProviderActiveStart: March 25, 2025 End: March 25, 2025 Team Status: Inactive Member Role Status Dates Pascale Arana CANDY VENDOR-C Primary Care Provider Active Start: April 23, 2025 End: April 23, 2025Sylvia Middleton ProviderActiveStart: April 23, 2025 End: April 23, 2025 Team Status: Active Member Role Status Dates Pascale Arana CANDY VENDOR-C Primary Care Provider Active Start: April 23, 2025 Shun Arshad MDOther ProviderActiveStart: April 23, 2025 Sylvia Castelan ProviderActiveStart: April 23, 2025 Team Status: Inactive Member Role Status Dates Pascale Arana CANDY VENDOR-C Primary Care Provider Active Start: April 30, 2025 End: April 30, 2025Pascale Arana NP-CAttending ProviderActiveStart: April 30, 2025 End: April 30, 2025Team MemberRelationshipSpecialtyStart DateEnd Date Pascale Arana, WIRE SPIRAL BINDER-GRAIN GRADER [address] [place] [address] PCP - GeneralNurse Practitioner04/02/25 Team Status: Active Member Role Status Dates Pasacle Arana , CANDY VENDOR-C Primary Care Provider Active Start: May 05, 2025 Pascale Arana NP-CAtgordo ProviderActiveStart: May 05, 2025 Team Status: Inactive Member Role Status Dates Pascale Arana CANDY VENDOR-C Primary Care Provider Active Start: May 05, 2025 End: May 05, 2025Lydia Wright ProviderActiveStart: May 05, 2025 End: May 05, 2025Team MemberRelationshipSpecialtyStart DateEnd Date Molina De Anda MD PCP - GeneralFamily Medicine02/21/24 Angel Luis Groves NP [facility] Medicine02/21/24 Eunice Dias [facility] [address] [place] [address] [place] [address] Nurse PractitionerM[facility]01/22/25Team MemberRelationshipSpecialtyStart DateEnd Date Pascale Arana APRN-GRAIN GRADER [address] [place] [address] PCP - GeneralNurse Practitioner04/02/25 Team Status: Active Member Role/Relationship Status Dates Pascale Arana CANDY VENDOR-C Primary Care Provider Active Team Status: Inactive Member Role/Relationship Status Dates Shun Arshad MD Attending Provider Active Star t: March 25, 2025 End: March 25, 2025Lisa J Aichholz , CANDY VENDOR-CPrimary Care ProviderActiveStart: March 25, 2025 End: March 25, 2025 Team Status: Active Member Role/Relationship Status Dates Pascale Arana CANDY VENDOR-C Primary Care Provider Active Start: April 23, 2025 Shun Arshad MDOther ProviderActiveStart: April 23, 2025 Loc Aguayo MDAttending ProviderActiveStart: April 23, 2025 Team Status: Inactive Member Role/Relationship Status Dates Pascale Bang Arana , CANDY VENDOR-C Primary Care Provider Active Start: April 30, 2025 End: April 30, 2025Lisa Bang Arana , CANDY VENDOR-CAttending ProviderActiveStart: April 30, 2025 End: April 30, 2025 Team Status: Active Member Role/Relationship Status Dates Pascale Arana , CANDY VENDOR-C Primary Care Provider Active Start: May 05, 2025 Pascale Arana , CANDY VENDOR-CAttending ProviderActiveStart: May 05, 2025 Team Status: Inactive Member Role/Relationship Status Dates Pascale Arana , CANDY VENDOR-C Primary Care Provider Active Start: May 05, 2025 End: May 05, 2025Justuskeya Peter Alverto , APRNAttending ProviderActiveStart: May 05, 2025 End: May 05, 2025 Team Status: Inactive Member Role/Relationship Status Dates Pascale Arana , CANDY VENDOR-C Primary Care Provider Active Start: May 26, 2025 End: May 26, 2025Lisa Bang Arana , CANDY VENDOR-CAttending ProviderActiveStart: May 26, 2025 End: May 26, 2025 Goals (unrecognized section and content) Goals [...] BE BASED ON THE PRIMARY CLINICAL RECORDS. [employer] provides no warranty or guarantee of the accuracy or completeness of information in this document.
--- OUTSIDE RECORDS SUMMARY | 2025-06-02 07:39 | XMS_ITS | Clinical Summary ---
Author Organization [facility] Address [address] [place] [address] Care Team Providers Care Doctor Of Naprapathic Medicine Name Role Phone Molina De Anda MD Primary Care Provider [phone] Valerie Groves SUPERVISOR PHOTOSTAT Unavailable [phone] Karime Dias PMHNP- Unavailable [phone] Allergies Active AllergyReactionsCriticalityNoted FdbgRpzmljnaXwwxjgljvbpSnirr69/12/2023 Medications MedicationSigDispense QuantityRefillsLast FilledStart DateEnd DateStatus meloxicam [...] DateGAD (generalized anxiety disorder)03/06/2025 Spinal stenosis, lumbosacral pvbvsm4202/05/2025Spinal stenosis, cervical region 02/05/2025Sleep apnea01/22/2025Severe episode of recurrent major depressive disorder, without psychotic vibhxsex76/02/2025 Assessment & Plan (02/25/2025 12:45 PM EDT): Was referred to psych, they are currently managing meds Is off on FMLA for this PTSD (post-traumatic stress disorder)01/22/2025 Assessment & Plan (02/25/2025 7:23 AM EDT): Dx as per psych Abnormal Papanicolaou smear of cervix with positive human papilloma virus (HPV) test11/27/2024 Overview (11/27/2024): Pap smear 11/15 Hot flashes due to xygowreqn19/30/2025 Assessment & Plan (11/20/2024 4:37 PM EDT): Discussed insurance concern over dose of celexa, she takes for hot flashes she is willing to trial a decrease in dose to 20mg and will cut her current pill in half BMI 32.0-32.9,adult10/23/2024Overactive bladder due to prolapse of female genital organ10/02/2024Headache, menstrual migraine, with status migrainosus 08/12/2024Malaise and tpglndd3608/12/2024Detrusor muscle xlfumhsomw30/20/2025lass 1 obesity due to excess calories without [...] options for weight loss. Environmental and seasonal unbcaxhzx38/20/2025 Assessment & Plan (08/12/2024 4:42 PM EST): Cont layla, add flonase History of GI bleed03/06/2024LUQ abdominal pain03/06/20247486Gnrsdknafwmn13/07/2024 Assessment & Plan (04/10/2024 6:44 PM EDT): [...] AFTER BM. Referral sent to GI Nicotine /22/2024 Assessment & Plan (02/25/2025 7:23 AM EDT): [...] ready to start this process Antibiotic-induced yeast hxoezkkez52/22/2024 Assessment & Plan (08/15/2023 12:15 AM EST): Will order Fluconazola in case she develops abx induced yeast infection History of gastric pbggzb0808/04/2023 Assessment & Plan (11/13/2023 5:18 PM EDT): On B12 injection and required IV iron. Monitor Iron deficiency vpcbzu8708/04/2023 Assessment & Plan (02/25/2025 12:45 PM EDT): [...] Iron due to prior gastric bypass surgery. Jcdptescvhof33/12/2023 Assessment & Plan (01/06/2025 6:10 PM EDT): [...] Elevate HOB if possible Current med: lansoprazole Fqcxkhld68/12/2023 Assessment & Plan (02/25/2025 12:44 PM EDT): [...] mg. Follow up in 6 weeks. B12 vfdnjyjvwi95/12/2023 Assessment & Plan (10/23/2024 6:11 PM EDT): [...] prior gastric bypass. Plantar fasciitis of right foot06/30/20234996Qzgonrwjf28/08/2023Uterine prolapse 06/30/2023 Resolved Problems ProblemNoted DateDiagnosed DateResolved DateUTI (urinary tract infection), /24/202504/Well woman exam with routine gynecological exam / Assessment & Plan (11/20/2024 4:32 PM EDT): Thin prep: fu as per pap indications Monthly BSE Weight bearing exercise as well Encounter for screening mammogram for malignant neoplasm of xcogkg8910/02/2024 01/22/2025MI 34.0-34.9,adult/08/2024Female genital symptoms /Problem related to unspecified psychosocial circumstances SmokingStress Assessment & Plan (01/06/2025 6:09 PM EDT): See bipolar entry Ewwpsrncrrnm62/20/202504/ute non-recurrent maxillary sinusitis Assessment & Plan (08/12/2024 4:41 PM EST): Zithromax , finish atb Fluids, rest Fu if not better, add steroid nasal spray Cutaneous abscess of abdominal wall/ Overview (08/12/2024): [employer] [id number] EXP: 10/22/2026 LOT # [id number] Assessment & Plan (08/12/2024 5:50 PM EST): [...] daily if no contraindications Screening for diabetes gxgymkaa83 Assessment & Plan (01/22/2024 5:28 PM EDT): Screen for T2 DM Encounter for screening mammogram for breast Assessment & Plan (01/22/2024 5:29 PM EDT): Ordered mammogram. Seizure-like Assessment & Plan (01/22/2024 5:28 PM EDT): [...] both ears without spontaneous rupture of tympanic dvafihcqp93Overactive epyoems2111/13/2023 01/06/2025utaneous abscess of groin Assessment & Plan (08/15/2023 12:20 AM EST): Small pea sized skin abscess in pubic region - on cefdinir for URTI. Should cover unless MRSA Patient asked to follow up if no improvement or worsening pain, swelling or fever. URTI (acute upper respiratory infection)01/22/789954/06/2025 Assessment & Plan (08/15/2023 12:15 AM EST): Cough, rhinorrhea, fatigue, malaise x 2-3 weeks. No fever. No chills. No SOB but ear feels full. Exam showed TM is opaque b/l, thick, cloudy colored fluid, hyperemic oropharyngeal mucosa. Will call in oral Cefdinir, alongwith PO prednisone and benzonatate. Bipolar disorder with severe httzzgeesg16/12/202307/08/2024 Assessment & Plan (01/06/2025 6:09 PM EDT): [...] or concerns related to new medications. Breast ihfgijkpe87/06/2025 Assessment & Plan (07/04/2023 3:48 PM EST): Ordered mammogram Menorrhagia with regular cycle/ Encounters DateTypeDepartmentCare HultUrklvqgovyx69/29/2025Telephone [facility] [address] [place] [address] Rohan Burns LPC 04/09/2025 4:30 PM EDTSocial Work [facility] [place] [facility] [address] [place] [address] Rohan Burns LPC JESSIKA (generalized anxiety disorder) ; Severe episode of recurrent major depressive disorder, without psychotic features (HCC); PTSD (post-traumatic stress disorder)04/09/2025amboo flowsheet [facility] [address] [place] [address] Rohan Burns LPC 04/09/20251849Splizn21/11/2025 9:00 AM EDTTelemedicine [facility] [address] [place] [address] Karime Dias, HNP-BC JESSIKA (generalized anxiety disorder) ; Severe episode of recurrent major depressive disorder, without psychotic features (HCC); PTSD (post-traumatic stress disorder) ; Insomnia, unspecified type; Lxxofzcwmrvh74/11/2044Lwfhpj33/06/2025Refill [facility] [place] [facility] [address] [facility] [address] [place] [address] Karime Dias, HNP-BC Severe episode of recurrent major depressive disorder, without psychotic features (HCC)03/25/2025 2:30 PM EDTSocial Work [facility] [address] [facility] [address] [place] [address] Rohan Burns LPC JESSIKA (generalized anxiety disorder) ; Severe episode of recurrent major depressive disorder, without psychotic features (HCC); PTSD (post-traumatic stress disorder)03/25/2025amboo flowsheet [facility] [address] [facility] [address] [place] [address] Rohan Burns LPC 03/25/20253018Cjmnxv03/26/9710Nhmlmq52/18/2025Results Follow-Up [facility] [place] [facility] [address] [place] [address] Natacha Lyn MA ALL CBC WITH AUTO DIFF, HMHP IRON03/06/2025 3:00 PM EDTSocial Work [facility] [place] [facility] [address] [place] [address] Rohan Burns LPC JESSIKA (generalized anxiety disorder) ; Severe episode of recurrent major depressive disorder, without psychotic features (HCC); PTSD (post-traumatic stress disorder)03/06/2025amboo flowsheet [facility] [place] [facility] [address] [place] [address] Rohan Burns LPC 03/06/20259002Xjmvyy31/13/2025Clinisync Result Encounter [facility] External Department Unsolicited Pascale Arana NP from Last 3 Months Family History Medical HistoryRelationNameCommentsDiabetesFatherCharlesHeart diseaseFather CharlesHypertensionFatherCharlesStrokeFatherCharlesBreast cancerMaternal GrandmotherThyroid cancerMaternal GrandmotherDepressionMotherConnieDiabetes MotherConnieBreast cancerMother's SisterRelationNameStatusCommentsDaughter 1 AliveDaughter 2AliveDaughter 3AliveFatherCharlesAliveMaternal Grandmother DeceasedMotherConnieAliveMother's SisterAliveSonAlive Social History Tobacco UseTypesPacks/DayYears UsedDateSmoking Tobacco: Every KtiUimvaemeyb502.9 Started: 1985Passive Smoke Exposure: PastSmokeless Tobacco: Never [...] times a week08/07/2023How often do you attend hindu or uatsdin services?Never08/07/2023o you belong to any clubs or organizations such as hindu groups, unions, fraternal or athletic groups, or school groups?No08/07/2023How often do you attend meetings of the clubs or organizations you belong to?Patient chwiesxt43/15/2024re you , , , , never , or living with a partner?Rsaamul2108/07/2023 AUDIT-CAnswerDate RecordedQ1: How often do you have [...] at all 08/07/2023HQ-2AnswerDate RecordedPatient Health Questionnaire-2 Score5 01/22/2025[facility] - Occupational Stress QuestionnaireAnswerDate RecordedDo you feel stress - tense, restless, nervous, or anxious, or unable to sleep at night because yourmind is troubled all the time - these days?To some eglclf5508/07/2023Exercise Vital SignAnswerDate Recorded On average, how many [...] steady place to sleep or slept in [facility] (including now)?No08/07/2023Comments UnknownSex and Gender InformationValueDate RecordedSex Assigned at BirthNot on fileLegal IzzAtsrnz27/15/2023 7:47 PM EDTGender IdentityNot on fileSexual OrientationNot on file Last Filed Vital Signs Vital SignReadingTime TakenCommentsBlood Ufbjvaxh280/6408 11:31 AM EDT Ktxlv2243 11:31 AM IUHNnktzdsvodp43.6 ??C (97.8 ??F)02/25/2025 11:31 AM EDTRespiratory Faqz3668 4:32 PM EDTOxygen Zztpqtvqfg43%02/25/2025 11:31 AM EDTInhaled Oxygen Concentration--Qqiwsm07.4 kg (172 lb 12.8 oz)02/25/2025 11:31 AM HPBMohtlo212.1 cm (5' 5 )10/02/2024 4:51 PM EDTBody Mass Index28.76 10/02/2024 4:51 PM EDT Plan of Treatment DateTypeDepartmentCare Team (Latest Contact Info)Cmrdmfpplji36/10/2025 3:00 PM ESTOffice Visit [facility] [address] [facility] [address] [place] [address] Macarena Chang, BUTTONHOLE MARKER-RECRUITING ASSOCIATE [address] [facility] [address] [place] [address] Goals GoalPatient Goal TypeAssociated ProblemsRecent ProgressPatient-Stated?Author Help patient manage antidepressant medication Care PlanPatient on antidepressant monitoring Shaikh Cornell MD Procedures Procedure NamePriorityDate/TimeAssociated DiagnosisCommentsHMHP IRONRoutine 03/05/2025 5:03 PM EDT ALL CBC WITH AUTO NWCFXrxpmtr14/13/2025 5:03 PM EDT from Last 3 Months Results * HMHP IRON (03/05/2025 5:03 PM EDT)ComponentValueRef RangeTest MethodAnalysis TimePerformed AtPathologist SignatureTBH IRON78.050.0 - 170.0 ug/dLTBHSpecimen (Source)Anatomical Location / LateralityCollection Method / VolumeCollection TimeReceived Time03/05/2025 5:03 PM EDT03/05/2025 5:06 PM EDT Narrative CLINISYNC - 03/05/2025 5:54 PM EDT Authorizing ProviderResult TypeResult StatusLisa [facility] NPCLINISYNCFinal ResultPerforming OrganizationAddressCity/State/ZIP CodePhone Number CLINISYNC [facility] * (ABNORMAL) ALL CBC WITH AUTO DIFF (03/05/2025 5:03 PM EDT)ComponentValueRef RangeTest MethodAnalysis TimePerformed AtPathologist SignatureTBH WBC6.64.0 - 11.0 10 3/uLTBHTBH RBC3.79(L)4.20 - 5.40 10 6/uLTBHTBH HGB11.8(L)12.0 - 16.0 g/dLTBHTBH HCT37.236.0 - 48.0 %TBHTBH MCV98.281.0 - 99.0 fLTBHTBH MCH31.126.7 - 34.0 pgTBHTBH MCHC31.729.9 - 35.2 g/dLTBHTBH RDW15.3(H)11.0 - 15.0 %TBHTBH FRK556392 - 450 10 3/uLTBHTBH MPV10.09.5 - 13.5 [...] NPCLINISYNCFinal ResultPerforming OrganizationAddressCity/State/ZIP CodePhone Number CLINISYNC [facility] from Last 3 Months Additional Health Concerns Active ProblemsNoted DateDiagnosed DatePatient on antidepressant monitoring plan 08/03/2023 Insurance Care Teams Team MemberRelationshipSpecialtyStart DateEnd Date Molina De Anda MD PCP - GeneralFamily Medicine02/21/24 Valerie Groves NP Nurse PractitionerLoring Hospitally Medicine02/21/24 Karime Dias PMHNPST[facility] [address] [place] [address] Nurse PractitionerRoxbury Treatment Center01/22/25
--- OUTSIDE RECORDS SUMMARY | 2025-06-02 07:39 | XMS_ITS | Patient Health Record ---
Author Organization [facility] [place] Address [address] [place] [address] Care Team Providers Care Director Regulatory Compliance Name Role Phone None, Unknown or Primary Care Provider Unavailab Tawana Lee [facility] [phone] Allergies Allergen (clinical drug ingredient) Drug/Non Drug Allergy documented on EMR Reaction Allergy Type Onset Date Status PenicillinrashDrug AllergyActive Results Component Value Reference Range Notes CT FOOT LT WO CON (Not yet r eviewed by provider) Interpretation: Performing Lab: Notes/Report: Source Facility: [place] [address] CT Scan Report Signed Patient: TALIA RUTHERFORD MR#: [id number] : 1970 Acct:[id number] Age/Sex: 54 / F ADM Date: 09/09/24 Loc: CT Attending Dr: Tawana Hoff D.P.M. Ordering Physician: Tawana Hoff D.P.M. Date of Service: 09/09/24 Procedure(s): CT foot LT wo con Accession Number(s): [id number] cc: ANGEL LUIS LAMAR [place] [address] Patient Name: TALIA RUTHERFORD MRN: [id number] date: 1970 Sex: F Assigned Patient Location: CT Current Patient Location: CT Accession/Order Number: [id number] Exam Date: 09/09/2024 15:56 Report Date: 09/09/2024 [...] M.D. Signed By: 09/09/241741 DD/ 38 TD/TT: Museum Exhibit Designer: XR foot LT min 3V (Not yet r eviewed by provider) Interpretation: Performing Lab: Notes/Report: Source Facility: [place] [address] XRay Report Signed Patient: TALIA RUTHERFORD MR#: [id number] : 1970 Acct:[id number] Age/Sex: 54 / F ADM Date: 09/04/24 Loc: EC Attending Dr: Tawana Hoff D.P.M. Ordering Physician: Tawana Hoff D.P.M. Date of Service: 09/04/24 Procedure(s): XR foot LT min 3V Accession Number(s): [id number] cc: NASH LAMAR Peter D.P.M. [facility] [place] [address] Patient Name: TALIA RUTHERFORD MRN: [id number] date: 1970 Sex: F Assigned Patient Location: Current Patient Location: Accession/Order Number: [id number] Exam Date: 09/04/2024 15:53 Report Date: 09/05/2024 [...] Signed By: 09/05/24 1019 DD/ 1016 TD/TT: Museum Exhibit Designer: Reason For Referral No Information Medications [...] o steoarthritis of the ankle and/or foot (622281725) Primary osteoarthritis, left ankle and foot (M19.072) ActiveconfirmedProblemGastroesophageal reflux disease (646687168)GERD (gastroesophageal reflux disease) (K21.9)ActiveconfirmedProblemPain in left foot (283085851829686)Left foot pain (M79.672)ActiveconfirmedProblemAnxiety depression (438857823)Anxiety with depression (F41.8)ActiveconfirmedProblemUlcer of big toe (disorder) (152425550)Chronic ulcer of great toe of left foot with fat layer exposed (L97.522)Activeconfirmed Vital Signs Heart Rate 85 /min 09/18/2024 Respiratory Rate16 /min09/18/20246323Iooexsbn15 %09/18/2024 Encounters Encounter Location Date Provider Diagnosis [facility] [address] [place] [address] [place] [address] 09/04/[address] [facility])[address] [place] [address] [place] [address]/12/2025Peter HighlanderPain due to internal orthopedic prosthetic devices, implants and grafts, initial encounter T84.84XA; Primary osteoarthritis, left ankle and foot M19.072 and Left foot pain M79.672[facility])[address] [place] [address] [place] [address]/26/2025Peter Highlander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.0 ; Primary [...] Coverage End Date RANDI COURTNEY [address] [place] [address] [id number] Talia Rutherford Self - patient is the insured Medical (General) History Medical History History ICD Code GERD (gastroesophageal reflux disease) K 21.9 Anxiety F41.9 Arthritis M19.90 Nicotine dependence F17.200 Bipolar depression F31.9 Overactive bladder N32.81 Peripheral arterial disease I73.9 Surgical History Surgery Date(Month/Year) posterior colporrhaphy repair, enterocel e repair 02/15/2021 gastric bypass 08/2019 tubal ligation cholecystectomy
--- OUTSIDE RECORDS SUMMARY | 2025-06-02 07:39 | XMS_ITS | Clinical Summary ---
Author Organization [facility] Address [id number] [place] [address] Care Team Providers Care Account Development Specialist Name Role Phone DerrickPascale argueta Bang DISASTER OR DAMAGE CONTROL SPECIALIST-MANAGER HEALTH Primary Care Provider Allergies Active AllergyReactionsCriticalityNoted TnudKihfzqbuHnvizfxtwhmCasud91/19/2023 Medications MedicationSigDispense QuantityRefillsLast FilledStart DateEnd DateStatus meloxicam [...] the morning. 30 tablet 5Active Active Problems ProblemNoted DateDiagnosed DateCystocele with second degree uterine prolapse 05/30/2025 Encounters DateTypeDepartmentCare SxpnHunohmlqrcg83/05/2025 2:30 PM ESTProcedure visit [facility] [address] [place] [address] Tania Asif MD Urge urinary incontinence (Primary Dx); Cystocele with second degree uterine prolapse; History of reconstructive repair of pxaqixdha56/05/9827Bsbecx56/10/2025Telephone [facility] [address] [place] [address] Areli Gudino CMA 04/02/2025 3:00 PM EDTOffice Visit [facility] [address] [place] [address] Tania Asif MD Cystocele with second degree uterine prolapse (Primary Dx); History of reconstructive repair of rectocele; Urge urinary /10/2025Travelfrom Last 3 Months Family History Medical HistoryRelationNameCommentsDiabetesFatherHeart attackFatherHypertension FatherStrokeFatherBreast cancerMaternal AuntDiabetesMaternal GrandfatherBreast cancerMaternal GrandmotherDiabetesMotherThyroid cancerPaternal GrandmotherColon cancerNeg HxOvarian cancerNeg HxUterine cancerNeg HxRelationNameStatusComments Nmwasyedm8ObeafAuvlexTnsbsrtdLluappls AuntAliveMaternal GrandfatherDeceased Maternal GrandmotherDeceasedMotherDeceasedPaternal GrandfatherDeceasedPaternal DawmwbgshrmSgpjbjutQpkjtph1NtkaxXbxOzwco Social History Tobacco UseTypesPacks/DayYears UsedDateSmoking Tobacco: Every NgxDoygcswivp869 Smokeless Tobacco: Never Tobacco Cessation:Ready to Q uit: Not Asked; Counseling Given: Not Answered Alcohol UseStandard Drinks/WeekCommentsYes0 (1 standard drink = 0.6 oz pure alcohol)ChildcareAnswerDate DjyvumxrTchkggsojQqpeknq81/12/2019EmploymentAnswer Date OblmjzpyTvzjbxvaynRtymhsb14/12/2019Hunger ScreeningAnswerDate Recorded Within the past 12 months we worried whether our food would run out before we got money to buy more.Never True05/28/2025Within the past 12 months the food we bought just didn't last and we didn't have money to get more.Never True 05/28/2025Purpose - LifeAnswerDate RecordedPurpose and direction in lifeUnknown 1CommentsNoSex and Gender InformationValueDate RecordedSex Assigned at BirthNot on fileLegal YgpBnlqbp05/06/2015 12:10 PM EDTGender IdentityNot on fileSexual OrientationNot on file Last Filed Vital Signs Vital SignReadingTime TakenCommentsBlood Gtqlqoja602/6705/28/2025 2:35 PM EST Ehmwk605405/28/2025 2:35 PM ESTTemperature--Respiratory Rate--Oxygen Saturation-- Inhaled Oxygen Concentration--Ahxphs72.7 kg (173 lb 9.6 oz)05/28/2025 2:35 PM KVJGugtxl578.4 cm (5' 5.5 )05/28/2025 2:35 PM ESTBody Mass Index28.45107/28/2024 2:35 PM EST Plan of Treatment DateTypeDepartmentCare Team (Latest Contact Info)Lzxcgcifbco59/16/2025 2:45 PM ESTProcedure visit [facility] On [address] [address] 07/22/2025 2:45 PM ESTHospital Encounter [facility] Surgery [address] [place] [address] Tania Asif MD [address] [facility] [address] [facility] [address] [place] [address] 07/22/2025 2:45 PM EST - 07/22/2025 5:30 PM ESTSurgery [facility] Surgery [address] [place] [address] Tania Asif MD [address] [facility] [address] [place] [address] DAVINCI HYSTERECTOMY SALPINGO OOPHORECTOMY [[id number] (CPT??)]09/03/2025 3:15 PM EST Office Visit [facility] [address] [place] [address] Tania Asif MD [address] [facility] [address] [place] [address] NamePriorityAssociated DiagnosesDate/TimeDAVINCI HYSTERECTOMY SALPINGO OOPHORECTOMY Cystocele with second degree uterine prolapse 07/22/2025 2:45 PM ESTDAVINCI SUSPENSION LIGAMENT UTEROSACRAL Cystocele with second degree uterine prolapse 07/22/2025 2:45 PM ESTREPAIR ANTERIOR CYSTOCELE VAGINA Cystocele with second degree uterine prolapse 07/22/2025 2:45 PM ESTCYSTOSCOPY Cystocele with second degree uterine prolapse 07/22/2025 2:45 PM ESTHealth MaintenanceDue DateLast DoneCommentsTobacco Wgkhshdfhg1971Depression Vkhnoojwu55/13/1983Adult BMI Follow Up Plan 1989DTaP,Tdap and Td Vaccines (1 - Tdap)1990Pap Smear1992 Zoster (Shingles) Vaccine (1 of 2)2021Influenza Javbffl6803/24/2025dult BMI Oomewpnhy10Tobacco Irmbdzoud43 Goals GoalPatient Goal TypeAssociated ProblemsRecent ProgressPatient-Stated?Author Autogenerated Goal Care PlanAutogenerated ProblemNoElizabeth [employer] Not on file Procedures Procedure NamePriorityDate/TimeAssociated DiagnosisCommentsPOCT URINALYSIS DIPSTICK KKSEOyyxxqz02/05/2025 3:04 PM EST Cystocele with second degree uterine prolapse History of reconstructive repair of rectocele Urge urinary incontinence MEASURE POST VOID NZYOFRWXFviobjg94/05/2025 Cystocele with second degree uterine prolapse History of reconstructive repair of rectocele Urge urinary incontinence from Last 3 Months Results * POCT urinalysis dipstick only (05/28/2025 3:04 PM EST)ComponentValueRef Range Test MethodAnalysis TimePerformed AtPathologist SignatureExternal Poct Urine ColorYELLOWMANUALLY TRANSCRIBED RESULTSExternal Poct Urine AppearanceCLEAR MANUALLY TRANSCRIBED RESULTSExternal Poct Urine GlucoseNegativeMANUALLY TRANSCRIBED RESULTSExternal Poct Urine KetonesNegativeMANUALLY TRANSCRIBED RESULTSExternal Poct Urine BloodNegativeMANUALLY TRANSCRIBED RESULTSExternal Poct Urine Kn7WXHMCEJH TRANSCRIBED RESULTSExternal Poct Urine ProteinNegative MANUALLY TRANSCRIBED RESULTSExternal Poct Urine NitriteNegativeMANUALLY TRANSCRIBED RESULTSExternal Poct Urine Leukocyte EsteraseNegativeMANUALLY TRANSCRIBED RESULTSSpecimen (Source)Anatomical Location / LateralityCollection Method / VolumeCollection TimeReceived DtkuGhfpn05/05/2025 3:04 PM EST Narrative Authorizing ProviderResult TypeResult StatusNadine C Laya MDPOINT OF CARE TEST ORDERABLESFinal ResultPerforming OrganizationAddressCity/State/ZIP CodePhone Number MANUALLY TRANSCRIBED RESULTS * Measure post void residual (05/28/2025)ComponentValueRef RangeTest Method Analysis TimePerformed AtPathologist TfpzluwyhHtljgl30tiKMYJIRBN TRANSCRIBED RESULTSSpecimen (Source)Anatomical Location / LateralityCollection Method / VolumeCollection TimeReceived TimeUrine Narrative Authorizing ProviderResult TypeResult StatusTania Asif MDNURSING ASSESSMENTSFinal ResultPerforming OrganizationAddressCity/State/ZIP CodePhone Number MANUALLY TRANSCRIBED RESULTS from Last 3 Months Additional Health Concerns Active ProblemsNoted DateDiagnosed DateAutogenerated Xllukir1605/30/2025 Insurance Care Teams Team MemberRelationshipSpecialtyStart DateEnd Date Pascale Arana, DISASTER OR DAMAGE CONTROL SPECIALIST-MANAGER HEALTH [address] [place] [address] PCP - GeneralNurse Practitioner04/02/25
--- OUTSIDE RECORDS SUMMARY | 2025-06-02 07:39 | XMS_ITS | Encounter Summary ---
Author Organization [facility] [employer] derrick tem Address [id number] [place] [address] Care Team Providers Care Graphic Illustrator Name Role Phone Pascale Arana QUALITY TESTER-STUDIO HAND Primary Care Provider Encounter Details DateTypeDepartmentCare Team (Latest Contact Info)Unmncxrvdqv68/05/2025Travel Social History Tobacco UseTypesPacks/DayYears UsedDateSmoking Tobacco: Every GkyVezbllalgz953 Smokeless Tobacco: NeverAlcohol UseStandard Drinks/WeekCommentsYes0 (1 standard drink = 0.6 oz pure alcohol)ChildcareAnswerDate RecordedChildcareUnknown 01/02/2019EmploymentAnswerDate WgmouvqgGkogadkofuGcwbnad98/12/2019Hunger ScreeningAnswerDate RecordedWithin the past 12 months we worried whether our food would run out before we got money to buy more.Never True05/28/2025Within the past 12 months the food we bought just didn't last and we didn't have money to get more.Never True05/28/2025Purpose - LifeAnswerDate RecordedPurpose and direction in ihagUwjozbn89/11/2021CommentsNoSex and Gender Information ValueDate RecordedSex Assigned at BirthNot on fileLegal EyfUfmotl97/06/2015 12:10 PM EDTGender IdentityNot on fileSexual OrientationNot on filedocumented as of this encounter Plan of Treatment DateTypeDepartmentCare Team (Latest Contact Info)Xpaeuobntoj45/16/2025 2:45 PM ESTProcedure visit [facility] [address] [place] [address] 07/22/2025 2:45 PM ESTHospital Encounter [facility] [address] [facility] [place] [address] Tania Asif MD [address] [facility] [address] [place] [address] 07/22/2025 2:45 PM EST - 07/22/2025 5:30 PM ESTSurgery [facility] [address] [place] [address] Tania Asif MD [address] [facility] [address] [place] [address] DAVINCI HYSTERECTOMY SALPINGO OOPHORECTOMY [[id number] (CPT??)]09/03/2025 3:15 PM EST Office Visit [facility] Pelvic Health - Urogyn [address] [facility] [address] [place] [address] Tania Asif MD [address] [facility] [address] [place] [address] NamePriorityAssociated DiagnosesDate/TimeDAVINCI HYSTERECTOMY SALPINGO OOPHORECTOMY Cystocele with second degree uterine prolapse 07/22/2025 2:45 PM ESTDAVINCI SUSPENSION LIGAMENT UTEROSACRAL Cystocele with second degree uterine prolapse 07/22/2025 2:45 PM ESTREPAIR ANTERIOR CYSTOCELE VAGINA Cystocele with second degree uterine prolapse 07/22/2025 2:45 PM ESTCYSTOSCOPY Cystocele with second degree uterine prolapse 07/22/2025 2:45 PM ESTdocumented as of this encounter Visit Diagnoses Not on filedocumented in this encounter Care Teams Team MemberRelationshipSpecialtyStart DateEnd Date Pascale Arana, QUALITY TESTER-[place]UDIO [place] [address] PCP - GeneralNurse Practitioner04/02/25documented as of this encounter
[2025-06-02 07:48] VITALS: BP 105/62; PULSE 77; TEMP 36.3; O2SAT 100
[2025-06-02 08:28] VITALS: BP 110/59; PULSE 71; O2SAT 98
[2025-06-02 08:29] VITALS: BP 118/60; PULSE 72; O2SAT 97
[2025-06-02] MEDS: LIDOCAINE HCL 2% 400 MG/20 ML MDV INJ (08:31)
[2025-06-02] MEDS: BUPIVACAINE HCL 0.25% PF 25 MG/10 ML VIAL 8 ML INJ (08:32)
--- NOTE | 2025-06-02 08:36 | W.PM.PROCNOT ---
Date of procedure: 06/02/25 Pre-op diagnosis: Pain due to lumbar spondylosis without myelopathy Post-op diagnosis: same as pre-op Procedure: Procedure: Bilateral L4-5, L5-S1 medial branch block Medications: Bupivacaine 0.25% 6cc The patient was seen and examined in the preoperative holding area.? An informed consent was obtained and placed on the chart.? The patient was brought to the medical procedure unit and placed in the prone position.? A timeout was completed verifying correct patient, procedure site, positioning, plan, and special equipment.? Using aseptic technique, the needle was placed at left L4. Under direct fluoroscopic visualization a Quincke-tipped spinal needle was advanced to the junction of the superior articulating process with the transverse process at the designated medial branch segment.? Preceded by negative aspiration, the above-mentioned injectate was placed in 1 mL aliquots.? The procedure was repeated at left L5, S1.? The needle was removed and insertion site was covered. The same procedure, at the same levels, was completed on the right side. The patient was taken to the postprocedural recovery area and monitored for an appropriate length of time before found suitable for discharge in the company of a responsible adult.? Anesthesia: Local Surgeon: Bandar Eden Pathology: none sent Condition: stable Disposition: no change
== END 2025-06-02 08:37 | disposition home or self-care (01) ==
PROVIDERS: PCP Nurse Practitioner; Visit Provider Anesthesiology
DX: M47.816 Spondylosis without myelopathy or radiculopathy, lumbar region (principal); M54.50 Low back pain, unspecified
CPT/HCPCS: 64493; 64494; J0665

== ENCOUNTER 2025-06-04 14:49 | Outpatient (OUT) | payer OTHER, SELFPAY ==
--- OUTSIDE RECORDS SUMMARY | 2024-09-03 10:30 | XMS_ITS ---
Author Organization The [facility] in [place] Address [address] [place] [address] Care Team Providers Care Billet Header Name Role Phone None, Unknown or Primary Care Provider Unavailab Mathew Lee Unavailable [phone] REASON FOR VISIT Left foot, surgical discussion about removal of hardware Encounters Encounter Location Date Provider Diagnosis [facility] (PODIATRY) [address] [place] [address] [place] [address] 09/03/2024 Mathew Hoff Left foot pain M79.672 Assessments Encounter Date Diagnosis (ICD Code) Assessment Notes Treatment Notes Treatment Clinical Notes Section Notes 09/03/2024 Left foot pain (ICD-10 - M79.672 ) Plan Of Treatment Pending Test Test Name Order Date XR Foot LT (3 views) * 09/03/2024 Progress Notes * Talia RUTHERFORDDOB:[birth year] (55 yo F)Acc No.[id number]:09/03/2024 UNLOCKED PROGRESS NOTE Follow Up Patient: Talia FREED :?Mathew Hoff DPLashaun, MSDOB:1970???Age: 54 Y???Sex:FemaleDate:09/03/2024Phone:[phone]:270 [address]IDA [id number]:Unknown or None Subjective: * Chief Complaints: * 1 . Left foot, surgical discussion about removal of hardware. * Medical History: Objective: * Vitals: Assessment: * Assessment: 1.?Left foot pain - M79.672??? Plan: * Treatment: ?Imaging: XR Foot LT (3 views) * * * Electronic signature of Mathew Hoff DPM on 06/04/2025 at 02:53 PM ESTSign off status: PendingVisit Status:?N/S N/C (No Show/No Charge) * Provider: Miguel Hoff DPM, MS Date: 0 09/03/2024 Generated for Printing/Faxing/eTransmitting on:?06/04/2025 02:53 PM EST
--- OUTSIDE RECORDS SUMMARY | 2025-05-28 14:30 | XMS_ITS | Encounter Summary ---
Author Organization [facility] [employer] [facility] [employer] Address [id number] [address] [place] [address] Care Team Providers Care Butcherette Name Role Phone Pascale Arana CUSTOMER ACCOUNT COORDINATOR-STONEMASON APPRENTICE Primary Care Provider Reason for Referral * Misc (Routine) - Pending ReviewSpecialtyDiagnoses / ProceduresReferred By ContactReferred To Contact Diagnoses Cystocele with second degree uterine prolapse History of reconstructive repair of rectocele Urge urinary incontinence Procedures Measure post void residual Tania Asif MD [address] [place] [address] Phone: tel: fax: Referral IDStatusReasonStart DateExpiration DateVisits RequestedVisits [id number]/ Reason for Visit * ReasonCommentsProcedure Encounter Details DateTypeDepartmentCare Team (Latest Contact Info)Zfjwqapgmjq58/05/2025 2:30 PM ESTProcedure visit [facility] Physicians Pelvic Health - Urogyn [address] [facility] [address] [place] [address] Tania Asif MD [address] [place] [address] Urge urinary incontinence (Primary Dx); Cystocele with second degree uterine prolapse; History of reconstructive repair of rectocele Social History Tobacco UseTypesPacks/DayYears UsedDateSmoking Tobacco: Every OzyTbydhlbash963 Smokeless Tobacco: Never Tobacco Cessation:Ready to Q uit: Not Asked; Counseling Given: Not Answered Alcohol UseStandard Drinks/WeekCommentsYes0 (1 standard drink = 0.6 oz pure alcohol)ChildcareAnswerDate OlynxasgOpductfgjMnxsmtx88/12/2019EmploymentAnswer Date RsurnskmFxjbcapcuiSnkqcou86/12/2019Hunger ScreeningAnswerDate Recorded Within the past 12 months we worried whether our food would run out before we got money to buy more.Never True05/28/2025Within the past 12 months the food we bought just didn't last and we didn't have money to get more.Never True 05/28/2025Purpose - LifeAnswerDate RecordedPurpose and direction in lifeUnknown 1CommentsNoSex and Gender InformationValueDate RecordedSex Assigned at BirthNot on fileLegal AjfLrmjng86/06/2015 12:10 PM EDTGender IdentityNot on fileSexual OrientationNot on filedocumented as of this encounter Last Filed Vital Signs Vital SignReadingTime TakenCommentsBlood Vwggbllg122/6705/28/2025 2:35 PM EST Sdpza065905/28/2025 2:35 PM ESTTemperature--Respiratory Rate--Oxygen Saturation-- Inhaled Oxygen Concentration--Hilzns30.7 kg (173 lb 9.6 oz)05/28/2025 2:35 PM XTQOpfyal928.4 cm (5' 5.5 )05/28/2025 2:35 PM ESTBody [...] diarrhea, fecal incontinence. 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 Past [...] mL: No leakage VLPP and CLPP at ALF: No leakage UPP at 50 mL was 95 cm H2O UPP at ALF was 81 cm H2O MUCP (maximal urethral [...] good candidate for minimally invasive hysterectomy with minto tissue repair. Risks, benefits, alternatives discussed at [...] Plan of Treatment DateTypeDepartmentCare Team (Latest Contact Info)Flurjgpbwoa69/16/2025 2:45 PM ESTPro[facility] [address] [address] 07/22/2025 2:45 PM ESTHospital Encounter [facility] Surgery [address] [place] [address] Tania Asif MD [address] [facility] [address] [place] [address] 07/22/2025 2:45 PM EST - 07/22/2025 5:30 PM ESTSurgery [facility] [address] [place] [address] Tania Asif MD [address] [facility] [address] [place] [address] DAVINCI HYSTERECTOMY SALPINGO OOPHORECTOMY [[id number] (CPT??)]09/03/2025 3:15 PM EST Office Visit [facility] Physicians Pelvic Health - Urogyn [address] [facility] [address] [place] [address] Tania Asif MD [address] [facility] [address] [place] [address] NamePriorityAssociated DiagnosesDate/TimeDAVINCI HYSTERECTOMY SALPINGO OOPHORECTOMY Cystocele with second degree uterine prolapse 07/22/2025 2:45 PM ESTDAVINCI SUSPENSION LIGAMENT UTEROSACRAL Cystocele with second degree uterine prolapse 07/22/2025 2:45 PM ESTREPAIR ANTERIOR CYSTOCELE VAGINA Cystocele with second degree uterine prolapse 07/22/2025 2:45 PM ESTCYSTOSCOPY Cystocele with second degree uterine prolapse 07/22/2025 2:45 PM ESTdocumented as of this encounter Procedures Procedure NamePriorityDate/TimeAssociated DiagnosisCommentsPOCT URINALYSIS DIPSTICK ELUFSrjyuqi89/05/2025 3:04 PM EST Cystocele with second degree uterine prolapse History of reconstructive repair of rectocele Urge urinary incontinence MEASURE POST VOID XWYGIJPCZgxuqso18/05/2025 Cystocele with second degree uterine prolapse History of reconstructive repair of rectocele Urge urinary incontinence documented in this encounter Results * POCT urinalysis dipstick only (05/28/2025 3:04 PM EST)ComponentValueRef Range Test MethodAnalysis TimePerformed AtPathologist SignatureExternal Poct Urine ColorYELLOWMANUALLY TRANSCRIBED RESULTSExternal Poct Urine AppearanceCLEAR MANUALLY TRANSCRIBED RESULTSExternal Poct Urine GlucoseNegativeMANUALLY TRANSCRIBED RESULTSExternal Poct Urine KetonesNegativeMANUALLY TRANSCRIBED RESULTSExternal Poct Urine BloodNegativeMANUALLY TRANSCRIBED RESULTSExternal Poct Urine Li4NFBVJDEO TRANSCRIBED RESULTSExternal Poct Urine ProteinNegative MANUALLY TRANSCRIBED RESULTSExternal Poct Urine NitriteNegativeMANUALLY TRANSCRIBED RESULTSExternal Poct Urine Leukocyte EsteraseNegativeMANUALLY TRANSCRIBED RESULTSSpecimen (Source)Anatomical Location / LateralityCollection Method / VolumeCollection TimeReceived NjqvDgrce11/05/2025 3:04 PM EST Narrative Authorizing ProviderResult TypeResult StatusNayamilex Asif MDPOINT OF CARE TEST ORDERABLESFinal ResultPerforming OrganizationAddressCity/State/ZIP CodePhone Number MANUALLY TRANSCRIBED RESULTS * Measure post void residual (05/28/2025)ComponentValueRef RangeTest Method Analysis TimePerformed AtPathologist OfazormvoVvynco90xyHXAOHSAD TRANSCRIBED RESULTSSpecimen (Source)Anatomical Location / LateralityCollection Method [...] Teams Team MemberRelationshipSpecialtyStart DateEnd Date Pascale Arana, CUSTOMER ACCOUNT COORDINATOR-STONEMASON APPRENTICE [address] [place] [address] PCP - GeneralNurse Practitioner04/02/25documented as of this encounter
--- OUTSIDE RECORDS SUMMARY | 2025-06-02 15:00 | XMS_ITS | Encounter Summary ---
Author Organization [facility] Address [address] [place] [address] Care Team Providers Care Precinct Captain Name Role Phone Molina De Anda MD Primary Care Provider [phone] Valerie Groves REAL ESTATE AGENT/BROKER Unavailable [phone] [facility]as [facility] + [phone] Reason for Visit * ReasonCommentsMed ManagementFollow-up Encounter Details DateTypeDepartmentCare Team (Latest Contact Info)Smpgavwezfv49/10/2025 3:00 PM ESTOffice Visit [facility] [address] [place] [address] Macarena Chang, VENDING MANAGER-[facility] [address] [place] [address] Severe episode of recurrent major depressive disorder, without psychotic features (HCC) Social History Tobacco UseTypesPacks/DayYears UsedDateSmoking Tobacco: Every KlrJwowzbgbmp964.9 Started: 1985Passive Smoke Exposure: PastSmokeless Tobacco: Never [...] times a week08/07/2023How often do you attend muslim or gnosticist services?Never08/07/2023o you belong to any clubs or organizations such as muslim groups, unions, fraternal or athletic groups, or school groups?No08/07/2023How often do you attend meetings of the clubs or organizations you belong to?Patient huuojryt60/15/2024re you , , , , never , or living with a partner?Qvezwgm5908/07/2023 AUDIT-CAnswerDate RecordedQ1: How often do you have [...] at all 08/07/2023HQ-2AnswerDate RecordedPatient Health Questionnaire-2 Score5 01/22/2025[facility] [place] [facility] Occup[facility] - Occupational Stress QuestionnaireAnswerDate RecordedDo you feel stress - tense, restless, nervous, or anxious, or unable to sleep at night because yourmind is troubled all the time - these days?To some wdgenv4508/07/2023Exercise Vital SignAnswerDate Recorded On average, how many [...] InformationValueDate RecordedSex Assigned at BirthNot on fileLegal RkyLshmxu94/15/2023 7:47 PM EDTGender IdentityNot on fileSexual OrientationNot on filedocumented as of this encounter Last Filed Vital Signs Vital SignReadingTime TakenCommentsBlood Lguonrbt33/6411 2:52 PM EST Tguwm202206/02/2025 2:52 PM ESTTemperature--Respiratory Rate--Oxygen Saturation-- Inhaled Oxygen Concentration--Trgjnc79.7 kg (178 lb)06/02/2025 2:52 PM ESTHeight --Body Mass Index29.62010/02/2024 4:51 PM EDTdocumented in this encounter Plan of Treatment DateTypeDepartmentCare Team (Latest Contact Info)Sijfwpiqgsn24/03/2025 2:00 PM ESTOffice Visit [facility] [address] [place] [address] Macarena Chang, VENDING MANAGER-TEXTILE ENGRAVER 112 [facility] [address] [place] [address] documented as of this encounter Goals GoalPatient Goal TypeAssociated ProblemsRecent ProgressPatient-Stated?Author Help patient manage antidepressant medication Care PlanPatient on antidepressant monitoring Shaikh Cornell MDdocumented as of this encounter Visit Diagnoses Diagnosis Severe episode of recurrent major depressive disorder, without psychotic features (HCC) documented in this encounter Additional Health Concerns Active ProblemsNoted DateDiagnosed DatePatient on antidepressant monitoring plan 4AssessmentNoted TimePHQ-9 Depression Total Score: 9:29 AM EDTdocumented as of this encounter Care Teams Team MemberRelationshipSpecialtyStart DateEnd Date Molina De Anda MD PCP - GeneralFamily Medicine02/21/24 Valerie Groves NP Nurse PractitionerFamily Medicine02/21/24 Karime Dias [facility] [address] [facility] [address] [place] [address] Nurse PractitionerThe Children'S Hospital Foundation01/22/25documented as of this encounter
--- OUTSIDE RECORDS SUMMARY | 2025-06-04 14:53 | XMS_ITS | Patient Health Record ---
Author Organization [facility] [place] Address [address] [place] [address] Care Team Providers Care Drain Cleaner Plumber Name Role Phone None, Unknown or Primary Care Provider Unavailab Tawana Lee [phone] Allergies Allergen (clinical drug ingredient) Drug/Non Drug Allergy documented on EMR Reaction Allergy Type Onset Date Status PenicillinrashDrug AllergyActive Results Component Value Reference Range Notes XR foot LT min 3V (Not yet r eviewed by provider) Interpretation: Performing Lab: Notes/Report: Source Facility: [place] [address] XRay Report Signed Patient: KALYN RUTHERFORD MR#: [id number] : 1970 Acct:[id number] Age/Sex: 54 / F ADM Date: 09/04/24 Loc: EC Attending Dr: Tawana Hoff D.P.M. Ordering Physician: Tawana Hoff D.P.M. Date of Service: 09/04/24 Procedure(s): XR foot LT min 3V Accession Number(s): [id number] cc: NASH LAMAR Peter D.P.M. [facility] [place] [id number] Patient Name: KALYN RUTHERFORD MRN: [id number] date: 1970 Sex: F Assigned Patient Location: EC Current Patient Location: Accession/Order Number: [id number] Exam Date: 09/04/2024 15:53 Report Date: 09/05/2024 10:16 At the request of: PETER HIGHLANDER Procedure: XR foot LT min 3V PROCEDURE: [...] Signed By: 09/05/24 1019 DD/ 1016 TD/TT: Factory Worker: CT FOOT LT WO CON (Not yet r eviewed by provider) Interpretation: Performing Lab: Notes/Report: Source Facility: [place] [address] CT Scan Report Signed Patient: KALYN RUTHERFORD MR#: [id number] : 1970 Acct:[id number] Age/Sex: 54 / F ADM Date: 09/09/24 Loc: CT Attending Dr: Tawana Hoff D.P.M. Ordering Physician: Tawana Hoff D.P.M. Date of Service: 09/09/24 Procedure(s): CT foot LT wo con Accession Number(s): [id number] cc: ANGEL LUIS LAMAR [place] [address] Patient Name: KALYN RUTHERFORD MRN: [id number] date: 1970 Sex: F Assigned Patient Location: CT Current Patient Location: CT Accession/Order Number: [id number] Exam Date: 09/09/2024 15:56 Report Date: 09/09/2024 [...] By: Amol Meneses M.D. Signed By: 09/09/24 174 DD/ 173 TD/TT: Factory Worker: Reason For Referral No Information Medications Medication [...] o steoarthritis of the ankle and/or foot (012696006) Primary osteoarthritis, left ankle and foot (M19.072) ActiveconfirmedProblemGastroesophageal reflux disease (657484651)GERD (gastroesophageal reflux disease) (K21.9)ActiveconfirmedProblemPain in left foot (863622599058843)Left foot pain (M79.672)ActiveconfirmedProblemAnxiety depression (895199580)Anxiety with depression (F41.8)ActiveconfirmedProblemUlcer of big toe (disorder) (256233574)Chronic ulcer of great toe of left foot with fat layer exposed (L97.522)Activeconfirmed Vital Signs Heart Rate 85 /min 09/18/2024 Respiratory Rate16 /min09/18/20249238Tsdaxdjx84 %09/18/2024 Encounters Encounter Location Date Provider Diagnosis [facility] [address] [place] [address] [place] [address] 09/04/2024 Tawana Hoff [facility])[address] [place] [address] [place] [address]/12/2025Peter HighlanderPain due to internal orthopedic prosthetic devices, implants and grafts, initial encounter T84.84XA; Primary osteoarthritis, left ankle and foot M19.072 and Left foot pain M79.672[facility] ([facility])[address] [place] [address] [place] [address]/26/2025Peter Highlander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.0 ; [...] Coverage End Date RANDI COURTNEY [address] [place] [address] [id number] Kalyn Rutherford Self - patient is the insured Medical (General) History Medical History History ICD Code GERD (gastroesophageal reflux disease) K 21.9 Anxiety F41.9 Arthritis M19.90 Nicotine dependence F17.200 Bipolar depression F31.9 Overactive bladder N32.81 Peripheral arterial disease I73.9 Surgical History Surgery Date(Month/Year) cholecystectomy tubal ligationgastric eqptzu46/2020posterior colporrhaphy repair, enterocele iitaol4502/15/2021
--- OUTSIDE RECORDS SUMMARY | 2025-06-04 14:53 | XMS_ITS | Encounter Summary ---
Author Organization [facility] Address [address] [place] [address] Care Team Providers Care Insole Reinforcer Name Role Phone Molina De Anda MD Primary Care Provider [phone] Valerie Groves MILLINERY BLOCKER Unavailable [phone] Karime Dias PMHNP- Unavailable + [phone] Encounter Details DateTypeDepartmentCare Team (Latest Contact Info)Xfktpgfwbsg04/10/2025amboo flowsheet [facility] [address] [place] [address] Macarena Chang, [facility] [address] [facility] [address] [place], [place] [address] Social History Tobacco UseTypesPacks/DayYears UsedDateSmoking Tobacco: Every TsyFxndtmufya762.9 Started: 1985Passive Smoke Exposure: PastSmokeless Tobacco: Never [...] times a week08/07/2023How often do you attend buddhist or adventism services?Never08/07/2023o you belong to any clubs or organizations such as buddhist groups, unions, fraternal or athletic groups, or school groups?No08/07/2023How often do you attend meetings of the clubs or organizations you belong to?Patient ihoeqbas98/15/2024re you , , , , never , or living with a partner?Jsmkfip4208/07/2023 AUDIT-CAnswerDate RecordedQ1: How often do you have [...] at all 08/07/2023HQ-2AnswerDate RecordedPatient Health Questionnaire-2 Score5 01/22/2025Fin[facility] [place] of Occupational Health - Occupational Stress QuestionnaireAnswerDate RecordedDo you feel stress - tense, restless, nervous, or anxious, or unable to sleep at night because yourmind is troubled all the time - these days?To some bsxqsy8008/07/2023Exercise Vital SignAnswerDate Recorded On average, how many [...] InformationValueDate RecordedSex Assigned at BirthNot on fileLegal GsqUayiud12/15/2023 7:47 PM EDTGender IdentityNot on fileSexual OrientationNot on filedocumented as of this encounter Plan of Treatment DateTypeDepartmentCare Team (Latest Contact Info)Gwuqdoalfyu83/03/2025 2:00 PM ESTOffice Visit [facility] [address] [place] [address] Macarena Chang APRN-INDUSTRIAL TECHNICIAN [address] [place] [address] documented as of this encounter Goals GoalPatient Goal TypeAssociated ProblemsRecent ProgressPatient-Stated?Author Help patient manage antidepressant medication Care PlanPatient on antidepressant monitoring planShaikh Gao, Dorcasocumented as of this encounter Visit Diagnoses Not on filedocumented in this encounter Additional Health Concerns Active ProblemsNoted DateDiagnosed DatePatient on antidepressant monitoring plan 4AssessmentNoted TimePHQ-9 Depression Total Score: 9:29 AM EDTdocumented as of this encounter Care Teams Team MemberRelationshipSpecialtyStart DateEnd Date Molina De Anda MD PCP - GeneralFamily Medicine02/21/24 Valerie Groves NP Nurse PractitionerFamily Medicine02/21/24 Karime Dias, [facility] [address] [address] Nurse PractitionerUpmc Magee-[facility]01/22/25documented as of this encounter
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
--- OUTSIDE RECORDS SUMMARY | 2025-06-04 14:53 | XMS_ITS | Encounter Summary ---
Author Organization [facility] Address [address] [facility] [place] [address] Care Team Providers Care Commercial Baker Helper Name Role Phone Molina De Anda MD Primary Care Provider [phone] Valerie Groves PROGRAM MANAGER RN Unavailable [phone] Karime Dias PMHNP- Unavailable + [phone] Encounter Details DateTypeDepartmentCare Team (Latest Contact Info)Elkmyrkusvs48/29/2025Telephone CHERYL [facility] [address] [facility] [address] [place] [address] Rohan Burns LPC Social History Tobacco UseTypesPacks/DayYears UsedDateSmoking Tobacco: Every VeeMxbrkcdqqs845.9 Started: 1984Passive Smoke Exposure: PastSmokeless Tobacco: Never [...] times a week08/07/2023How often do you attend christianity or cheondoism services?Never08/07/2023o you belong to any clubs or organizations such as christianity groups, unions, fraOneMln or athletic groups, or school groups?No08/07/2023How often do you attend meetings of the clubs or organizations you belong to?Patient gtfepjtp74/15/2024re you , , , , never , or living with a partner?Yrlfxdc5708/07/2023 AUDIT-CAnswerDate RecordedQ1: How often do you have [...] at all 08/07/2023HQ-2AnswerDate RecordedPatient Health Questionnaire-2 Score5 01/22/2025[facility] [place] of Occupational Health - Occupational Stress QuestionnaireAnswerDate RecordedDo you feel stress - tense, restless, nervous, or anxious, or unable to sleep at night because yourmind is troubled all the time - these days?To some csdytt1708/07/2023Exercise Vital SignAnswerDate Recorded On average, how many [...] InformationValueDate RecordedSex Assigned at BirthNot on fileLegal PdrRhfqdn55/15/2023 7:47 PM EDTGender IdentityNot on fileSexual OrientationNot [...] Plan of Treatment DateTypeDepartmentCare Team (Latest Contact Info)Ewkqdvmshvd23/03/2025 2:00 PM ESTOffice Visit [facility] [address] [facility] [address] [place] [address] Macarena Chang, FISHING HAND-MARINE DIESEL TECHNICIAN [address] [facility] [address] [place] [address] documented as of this encounter Goals GoalPatient [...] Groves NP Nurse PractitionerFamily Medicine02/21/24 Karime Dias PMHNPDECAT[facility] [address] [address] Nurse PractitionerNorth[facility] Health01/22/25documented as of this encounter
--- OUTSIDE RECORDS SUMMARY | 2025-06-04 14:53 | XMS_ITS | Encounter Summary ---
Author Organization [facility] Address [address] [place] [address] Care Team Providers Care Supervisor [employer] Name Role Phone Molina De Anda MD Primary Care Provider [phone] Valerie Groves CONCRETE STONE FINISHER Unavailable [phone] Karime Dias PMHNP- Unavailable + [phone] Encounter Details DateTypeDepartmentCare Team (Latest Contact Info)Eiourizrgrb08/10/2025Travel Social History Tobacco UseTypesPacks/DayYears UsedDateSmoking Tobacco: Every CoaAsjhuftjmo330.9 Started: 1984Passive Smoke Exposure: PastSmokeless Tobacco: Never [...] times a week08/07/2023How often do you attend religious or temple services?Never08/07/2023o you belong to any clubs or organizations such as religious groups, unions, fraternal or athletic groups, or school groups?No08/07/2023How often do you attend meetings of the clubs or organizations you belong to?Patient mnfvsref87/15/2024re you , , , , never , or living with a partner?Nzngvbr4008/07/2023 AUDIT-CAnswerDate RecordedQ1: How often do you have [...] at all 08/07/2023HQ-2AnswerDate RecordedPatient Health Questionnaire-2 Score5 01/22/2025[facility] [place] of Occupational Health - Occupational Stress QuestionnaireAnswerDate RecordedDo you feel stress - tense, restless, nervous, or anxious, or unable to sleep at night because yourmind is troubled all the time - these days?To some zmqfjk3008/07/2023Exercise Vital SignAnswerDate Recorded On average, how many [...] InformationValueDate RecordedSex Assigned at BirthNot on fileLegal WgyViajpi66/15/2023 7:47 PM EDTGender IdentityNot on fileSexual OrientationNot on filedocumented as of this encounter Plan of Treatment DateTypeDepartmentCare Team (Latest Contact Info)Pwrputpyped55/03/2025 2:00 PM ESTOffice Visit [facility] [address] [place] [address] [place] [address] Macarena Chang APRN-RICE FIELD WORKER [address] [place] [address] documented as of this encounter Goals GoalPatient Goal TypeAssociated ProblemsRecent ProgressPatient-Stated?Author Help patient manage antidepressant medication Care PlanPatient on antidepressant monitoring planShaikh Gao MDdocumented as of this encounter Visit Diagnoses Not on filedocumented in this encounter Additional Health Concerns Active ProblemsNoted DateDiagnosed DatePatient on antidepressant monitoring plan 08/03/2023ssessmentNoted TimePHQ-9 Depression Total Score: 9:29 AM EDTdocumented as of this encounter Care Teams Team MemberRelationshipSpecialtyStart DateEnd Date Molina De Anda MD PCP - GeneralFamily Medicine02/21/24 Valerie Groves NP Nurse PractitionerFafuller hospital Medicine02/21/24 Karime iDas, NORM- [address] [address] Nurse PractitionerWell[facility]01/22/25documented as of this encounter
--- OUTSIDE RECORDS SUMMARY | 2025-06-04 14:53 | XMS_ITS | Patient Health Record ---
Author Organization [facility] Address [address] [address], [facility] [place] [address] Care Team Providers Care Digital Music Instructor Name Role Phone SuMathew sal Unavailable [phone] Allergies Allergen (clinical drug ingredient) Drug/Non Drug [...] at bedtime as needed Orally Once a ryrObrepfTyddlzlj30/22/2025Active Vitamin B125ActiveMeloxicam 15 MG Tablet1 tablet Orally daily; Duration: 30 days5ActiveVraylar 3 MG CapsuleOral; Duration: 30 Days ActiveAllegraActiveDetrol LA4858UhtmngPyntebpg38/22/2025Active Social History Section Notes: Patient is a current smoker. No alcohol use. 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 Lives in [place], risk due to limited sun exposure. - [...] Date Coverage End Date [employer] [address] [address] [place] [address] [id number] Kenyon Mercado - patient is the insured Medical (General) History Medical History History ICD Code GERD
--- OUTSIDE RECORDS SUMMARY | 2025-06-04 14:53 | XMS_ITS | Clinical Summary ---
Author Organization [facility] Address [address] [place] [address] Care Team Providers Care Flyer Repairer Name Role Phone Shaikh NITHIN Main Primary Care Provider [phone] Allergies Active AllergyReactionsCriticalityNoted BeboQbcvxlbwPvnzgaizxby17/19/2023 Medications MedicationSigDispense QuantityRefillsLast FilledStart DateEnd DateStatus citalopram [...] InformationValueDate RecordedSex Assigned at BirthNot on fileLegal FyoUfcxng00/29/2022 10:25 PM EDT Gender IdentityNot on fileSexual OrientationNot on file Last Filed Vital Signs Vital SignReadingTime TakenCommentsBlood Bylhtucw29/6109 3:16 PM EDT Kqlso4910 3:16 PM EDTTemperature--Respiratory Rate--Oxygen Bihbbrzzaq90% 04/07/2023 3:16 PM EDTInhaled Oxygen Concentration--Gmzxfu431 kg (224 lb) 04/07/2023 3:16 PM CDUUlmqyx254.1 cm (5' 5 )04/07/2023 3:16 PM EDTBody Mass Index37.28004/07/2023 3:16 PM EDT Plan of Treatment Health MaintenanceDue DateLast DoneCommentsCT Fywdatpzagcb1971Colonoscopy 1971Colorectal Cancer Vmrtgkywy1971FIT-DNA1971FIT1971 FOBT1971 1408Keipljiozofry1971Depression Ttkomdnxx69/13/1983Hepatitis B Vaccines (1 of 3 - 19+ 3-dose series)1990Pneumococcal Vaccine: Pediatrics (0 to 5 Years) and At-Risk Patients (6 to 64 Years) (1 of 2 - PCV)1990Pap Smear1992Adult Bqwotmt2004/05/1993Cervical Cancer Bthubsvdr54/13/2001 HPV/Qyjdik2104/05/20017025Rkzanjfyp64/13/2011Zoster Vaccines (1 of 2)1COVID- 19 Vaccine (1 [...]
--- OUTSIDE RECORDS SUMMARY | 2025-06-04 14:54 | XMS_ITS | Clinical Summary ---
Author Organization [facility] Address [address] [place] [address] Care Team Providers Care Broadcast Meteorologist Name Role Phone Molina De Anda MD Primary Care Provider [phone] Valerie Groves BISQUE PLACER Unavailable [phone] Karime Dias PMHNP- Unavailable [phone] Allergies Active AllergyReactionsCriticalityNoted HshdVlgglfjkWhbgjkhtglpZypoz93/12/2023 Medications MedicationSigDispense QuantityRefillsLast FilledStart DateEnd DateStatus fexofenadine (Layla Allergy) 180 MG tablet Indications:Seasonal [...] the vagina 2 (two) times a week5Active Cariprazine HCl (Vraylar) 4.5 MG capsule Indications:JESSIKA [...] by mouth at bedtime 30 capsule 5Active benzonatate (Tessalon) 200 MG capsule Take 200 mg by mouth 3 (three) times a day as needed for cough5Active [employer]S D3 125 MCG (5000 UT) capsule Take 1 capsule by mouth Daily5Active esomeprazole (NexIUM) 40 MG packet Take 40 mg by mouth in the morning. Take before meals.5Active mirabegron ER (Myrbetriq) 50 MG 24 hr tablet Take 50 mg by mouth Daily5Active sucralfate (Carafate) 1 g tablet Take 1 g by mouth in the morning and 1 g in the evening. Take before meals. 5Active lamoTRIgine (LaMICtal) 25 MG tablet Indications:Severe episode of recurrent major depressive disorder, without psychotic features (HCC)Take 1 tablet (25 mg) by mouth Daily for 14 days, THEN 2 tablets (50 mg) Daily for 14 days. 42 tablet 5Active meloxicam (Mobic) 15 MG tablet Take 15 mg by mouth Daily as needed for mild pain Discontinued tolterodine LA (Detrol LA) 4 MG 24 hr capsule Take 4 mg by mouth DailyDiscontinued lansoprazole (Prevacid) [address] capsule Indications:Gastroesophageal reflux disease, unspecified whether esophagitis presentTake 1 capsule (30 mg) by mouth in the morning. Take before meals. 90 capsule Discontinued(Therapy completed) Cariprazine HCl (Vraylar) 3 MG capsule Indications:JESSIKA (generalized anxiety disorder),Severe episode of recurrent major depressive disorder, without psychotic features (HCC),PTSD (post-traumatic stress disorder)Take 3 mg by mouth Daily for 14 days 14 capsule Discontinued(Dose adjustment) Active Problems ProblemNoted DateDiagnosed DateGAD (generalized anxiety disorder)03/06/2025 Spinal stenosis, lumbosacral flntvm5902/05/2025Spinal stenosis, cervical region 02/05/2025Sleep apnea01/22/2025Severe episode of recurrent major depressive disorder, without psychotic snnxlokv25/02/2025 Assessment & Plan (02/25/2025 12:45 PM EDT): Was referred to psych, they are currently managing meds Is off on FMLA for this PTSD (post-traumatic stress disorder)01/22/2025 Assessment & Plan (02/25/2025 7:23 AM EDT): Dx as per psych Abnormal Papanicolaou smear of cervix with positive human papilloma virus (HPV) test11/27/2024 Overview (11/27/2024): Pap smear 11/15 Hot flashes due to /30/2025 Assessment & Plan (11/20/2024 4:37 PM EDT): Discussed insurance concern over dose of celexa, she takes for hot flashes she is willing to trial a decrease in dose to 20mg and will cut her current pill in half BMI 32.0-32.9,adult10/23/2024Overactive bladder due to prolapse of female genital organ10/02/2024Headache, menstrual migraine, with status migrainosus 08/12/2024Malaise and ssquylf5208/12/2024Detrusor muscle pyccutvrjg07/20/2025lass 1 obesity due to excess calories without [...] options for weight loss. Environmental and seasonal bndmqdrai74/20/2025 Assessment & Plan (08/12/2024 4:42 PM EST): Cont layla, add flonase History of GI bleed03/06/2024LUQ abdominal pain03/06/20244614Xnalpnetbflj82/07/2024 Assessment & Plan (04/10/2024 6:44 PM EDT): [...] to GI- Please try to get in ELSIA. If unable call office. Will send for another referral to elsewhere. Assessment & Plan (02/28/2024 5:47 PM EDT): Start Milk of Magnesia Twice daily Until you have a BM Start taking Miralax daily- continue AFTER BM. Referral sent to GI Nicotine ldccolikiw67/22/2024 Assessment & Plan (02/25/2025 7:23 AM EDT): The patient has been advised of the risks of continued smoking: stroke, MD, all forms of cancer, lung disease, and [...] of the risks of continued smoking: stroke, MD, all forms of cancer, lung disease, and [...] of the risks of continued smoking: stroke, MD, all forms of cancer, lung disease, and [...] of the risks of continued smoking: stroke, MD, all forms of cancer, lung disease, and [...] of the risks of continued smoking: stroke, MD, all forms of cancer, lung disease, and . Options for quitting smoking include: cold turkey, hypnosis, acupuncture, nicotine replacement meds(gum, lozenges, and patches), Buproprion, and Varenicline. At this time pt is encouraged to evaluate their goals for wanting to quit smoking, and reach out toprovider when ready to start this process Antibiotic-induced yeast zldjopmbo06/22/2024 Assessment & Plan (08/15/2023 12:15 AM EST): Will order Fluconazola in case she develops abx induced yeast infection History of gastric fvooet4408/04/2023 Assessment & Plan (11/13/2023 5:18 PM EDT): On B12 injection and required IV iron. 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 Jvbmgjpernmj06/12/2023 Assessment & Plan (01/06/2025 6:10 PM EDT): [...] Elevate HOB if possible Current med: lansoprazole Vsidxbgw93/12/2023 Assessment & Plan (02/25/2025 12:44 PM EDT): [...] mg. Follow up in 6 weeks. B12 fbughlnydh84/12/2023 Assessment & Plan (10/23/2024 6:11 PM EDT): [...] prior gastric bypass. Plantar fasciitis of right foot06/30/20235876Akmasaylu05/08/2023Uterine prolapse 06/30/2023 Resolved Problems ProblemNoted DateDiagnosed DateResolved DateUTI (urinary tract infection), jxbbvembsbvbd34/24/202504/Well woman exam with routine gynecological exam / Assessment & Plan (11/20/2024 4:32 PM EDT): Thin prep: fu as per pap indications Monthly BSE Weight bearing exercise as well Encounter for screening mammogram for malignant neoplasm of gkjoxe8510/02/2024 01/22/2025MI 34.0-34.9,adultFemale genital symptoms /Problem related to unspecified psychosocial circumstances SmokingStress Assessment & Plan (01/06/2025 6:09 PM EDT): See bipolar entry Laueihrlfivf09/20/202504/ute non-recurrent maxillary sinusitis /06/2025 Assessment & Plan (08/12/2024 4:41 PM EST): Zithromax , finish atb Fluids, rest Fu if not better, add steroid nasal spray Cutaneous abscess of abdominal wall/ Overview (08/12/2024): [employer] [id number] EXP: 10/22/2026 LOT # [id number] Assessment & Plan (08/12/2024 5:50 PM EST): [...] daily if no contraindications Screening for diabetes rzdwxima63 Assessment & Plan (01/22/2024 5:28 PM EDT): Screen for T2 DM Encounter for screening mammogram for breast jccpeo39 Assessment & Plan (01/22/2024 5:29 PM EDT): Ordered mammogram. Seizure-like gqewmrld94 Assessment & Plan (01/22/2024 5:28 PM EDT): [...] both ears without spontaneous rupture of tympanic amkdelmmw77Overactive ozafxzk4911/13/2023 01/06/2025utaneous abscess of groin Assessment & Plan [...] prednisone and benzonatate. Bipolar disorder with severe /12/202307/08/2024 Assessment & Plan (01/06/2025 6:09 PM EDT): [...] or concerns related to new medications. Breast sxyqyaois56/06/2025 Assessment & Plan (07/04/2023 3:48 PM EST): Ordered mammogram Menorrhagia with regular cycle/ Encounters DateTypeDepartmentCare GupgQynhvnpbhnf60/10/2025 3:00 PM ESTOffice Visit [facility] [address] [facility] [address] [place] [address] Macarena Chang, WAGE AND SALARY ADMINISTRATOR-DIRECTOR TOXICOLOGY Severe episode of recurrent major depressive disorder, without psychotic features (HCC)06/02/2025amboo flowsheet [facility] [address] [facility] [address] [place] [address] Macarena Chang WAGE AND SALARY ADMINISTRATOR-DIRECTOR TOXICOLOGY 06/02/20252274Cbxjck45/29/2025Telephone [facility] [address] [place] [address] Rohan Burns LPC 04/09/2025 4:30 PM EDTSocial Work [facility] [address] [place] [address] Rohan Burns LPC JESSIKA (generalized anxiety disorder) ; Severe episode of recurrent major depressive disorder, without psychotic features (HCC); PTSD (post-traumatic stress disorder)04/09/2025amb flowsheet [facility] [address] [facility] [address] [place] [address] Rohan Burns, KETTLE FIRER 04/09/20258382Yhvesv85/11/2025 9:00 AM EDTTelemedicine [facility] [address] [place] [address] Karime Dias, PMHNP-BC JESSIKA (generalized anxiety disorder) ; Severe episode of recurrent major depressive disorder, without psychotic features (HCC); PTSD (post-traumatic stress disorder) ; Insomnia, unspecified type; Kfjsjpgiptlk61/11/6370Yqiift01/06/2025Refill [facility] [address] [facility] [address] [place] [address] Karime Dias, HNP-BC Severe episode of recurrent major depressive disorder, without psychotic features (HCC)03/25/2025 2:30 PM EDTSocial Work [facility] [address] [facility] [address] [place] [address] Rohan Burns LPC JESSIKA (generalized anxiety disorder) ; Severe episode of recurrent major depressive disorder, without psychotic features (HCC); PTSD (post-traumatic stress disorder)03/25/2025amb flowsheet [facility] [address] [facility] [address] [place] [address] Rohan Burns LPC 03/25/20257687Rlkswt63/26/2668Kmeyqu72/18/2025Results Follow-Up [facility] [address] [place] [facility] [address] [facility] [place] [address] Natacha Lyn MA ALL CBC WITH AUTO DIFF, HP IRON03/06/2025 3:00 PM EDTSocial Work [facility] [address] [facility] [address] [place] [address] Rohan Burns LPC JESSIKA (generalized anxiety disorder) ; Severe episode of recurrent major depressive disorder, without psychotic features (HCC); PTSD (post-traumatic stress disorder)03/06/2025amb flowsheet [facility] [address] [facility] [address] [place] [address] Rohan Burns, KETTLE FIRER 03/06/20253490Lzxhbt85/13/2025Clinisync Result Encounter [facility] External Department Unsolicited [place] Arana NP from Last 3 Months Family History Medical HistoryRelationNameCommentsDiabetesFatherCharlesHeart diseaseFather CharlesHypertensionFatherCharlesStrokeFatherCharlesBreast cancerMaternal GrandmotherThyroid cancerMaternal GrandmotherDepressionMotherConnieDiabetes MotherConnieBreast cancerMother's SisterRelationNameStatusCommentsDaughter 1 AliveDaughter 2AliveDaughter 3AliveFatherCharlesAliveMaternal Grandmother DeceasedMotherConnieAliveMother's SisterAliveSonAlive Social History Tobacco UseTypesPacks/DayYears UsedDateSmoking Tobacco: Every KnlEnjudvvbam808.9 Started: 1985Passive Smoke Exposure: PastSmokeless Tobacco: Never [...] times a week08/07/2023How often do you attend anabaptism or synagogue services?Never08/07/2023o you belong to any clubs or organizations such as anabaptism groups, unions, fraternal or athletic groups, or school groups?No08/07/2023How often do you attend meetings of the clubs or organizations you belong to?Patient udtggmzz75/15/2024re you , , , , never , or living with a partner?Lxjximd7008/07/2023 AUDIT-CAnswerDate RecordedQ1: How often do you have [...] Health Questionnaire-2 Score5 01/22/2025Fin[facility] [place] of Occupational Health - Occupational Stress QuestionnaireAnswerDate RecordedDo you feel stress - tense, restless, nervous, or anxious, or unable to sleep at night because yourmind is troubled all the time - these days?To some wqbxjr5208/07/2023Exercise Vital SignAnswerDate Recorded On average, how many [...] InformationValueDate RecordedSex Assigned at BirthNot on fileLegal JfoFeiqfz04/15/2023 7:47 PM EDTGender IdentityNot on fileSexual OrientationNot on file Last Filed Vital Signs Vital SignReadingTime TakenCommentsBlood Pxqvdfah73/6411 2:52 PM EST Iucfm843606/02/2025 2:52 PM TYNUzecifpnlpz00.6 ??C (97.8 ??F)02/25/2025 11:31 AM EDTRespiratory Pooq869601/06/2025 4:32 PM EDTOxygen Osmstyjqan49%02/25/2025 11:31 AM EDTInhaled Oxygen Concentration--Geujal13.7 kg (178 lb)06/02/2025 2:52 PM EST Hlhnvw211.1 cm (5' 5 )10/02/2024 4:51 PM EDTBody Mass Index29.62010/02/2024 4:51 PM EDT Plan of Treatment DateTypeDepartmentCare Team (Latest Contact Info)Hqryvrhldct34/03/2025 2:00 PM ESTOffice Visit [facility] [address] [facility] [address] [place] [address] Macarena Chang, WAGE AND SALARY ADMINISTRATOR-DIRECTOR TOXICOLOGY [address] [facility] [address] [place] [address] Goals GoalPatient Goal TypeAssociated ProblemsRecent ProgressPatient-Stated?Author Help patient manage antidepressant medication Care PlanPatient on antidepressant monitoring Shaikh Cornell MD Procedures Procedure NamePriorityDate/TimeAssociated DiagnosisCommentsHMHP IRONRoutine 03/05/2025 5:03 PM EDT ALL CBC WITH AUTO XGFRQhssyvb81/13/2025 5:03 PM EDT from Last 3 Months Results * HMHP IRON (03/05/2025 5:03 PM EDT)ComponentValueRef RangeTest MethodAnalysis TimePerformed AtPathologist SignatureTBH IRON78.050.0 - 170.0 ug/dLTBHSpecimen (Source)Anatomical Location / LateralityCollection Method / VolumeCollection TimeReceived Time03/05/2025 5:03 PM EDT03/05/2025 5:06 PM EDT Narrative CLINISYNC - 03/05/2025 5:54 PM EDT Authorizing ProviderResult TypeResult StatusLisa [facility] NPCLINISYNCFinal ResultPerforming OrganizationAddressCity/State/ZIP CodePhone Number CLINISYNC [facility] * (ABNORMAL) ALL CBC WITH AUTO DIFF (03/05/2025 5:03 PM EDT)ComponentValueRef RangeTest MethodAnalysis TimePerformed AtPathologist SignatureTBH WBC6.64.0 - 11.0 10 3/uLTBHTBH RBC3.79(L)4.20 - 5.40 10 6/uLTBHTBH HGB11.8(L)12.0 - 16.0 g/dLTBHTBH HCT37.236.0 - 48.0 %TBHTBH MCV98.281.0 - 99.0 fLTBHTBH MCH31.126.7 - 34.0 pgTBHTBH MCHC31.729.9 - 35.2 g/dLTBHTBH RDW15.3(H)11.0 - 15.0 %TBHTBH RXD299000 - 450 10 3/uLTBHTBH MPV10.09.5 - 13.5 [...] - GeneralFamily Medicine02/21/24 Valerie Groves NP Nurse PractitionerChi [facility] Hospital [place]02/21/24 Karime Dias [facility] [address] [address] [facility]01/22/25
--- OUTSIDE RECORDS SUMMARY | 2025-06-04 14:54 | XMS_ITS | Clinical Summary ---
Author Organization [facility] tem Address [id number] [place] [address] Care Team Providers Care Provisioning Specialist Name Role Phone DerrickPascale argueta Bang CLAIM REP-COURSEWARE DEVELOPER Primary Care Provider Allergies Active AllergyReactionsCriticalityNoted CtyiEyccomgyLviwwdwfqeqNljqc09/19/2023 Medications MedicationSigDispense QuantityRefillsLast FilledStart DateEnd DateStatus meloxicam [...] second degree uterine prolapse 05/30/2025 Encounters DateTypeDepartmentCare EpqwLinmpzfleqh21/05/2025 2:30 PM ESTProcedure visit [facility] [address] [place] [address] Tania Asif MD Urge urinary incontinence (Primary Dx); Cystocele with second degree uterine prolapse; History of reconstructive repair of sixtleuap31/05/6001Hhubvm10/10/2025Telephone [facility] [address] [place] [address] Areli Gudino CMA 04/02/2025 3:00 PM EDTOffice Visit [facility] [address] [place] [address] Tania Asif MD Cystocele with second degree uterine prolapse (Primary Dx); History of reconstructive repair of rectocele; Urge urinary ambjiwamaevj54/10/2025Travelfrom Last 3 Months Family History Medical HistoryRelationNameCommentsDiabetesFatherHeart attackFatherHypertension FatherStrokeFatherBreast cancerMaternal AuntDiabetesMaternal GrandfatherBreast cancerMaternal GrandmotherDiabetesMotherThyroid cancerPaternal GrandmotherColon cancerNeg HxOvarian cancerNeg HxUterine cancerNeg HxRelationNameStatusComments Mlghbucev8BosbeWekuxmFmdmrjzyWmvsmhym AuntAliveMaternal GrandfatherDeceased Maternal GrandmotherDeceasedMotherDeceasedPaternal GrandfatherDeceasedPaternal IgixjpvilurAalhzfttHvxppue2CvoioKwcTrpsm Social History Tobacco UseTypesPacks/DayYears UsedDateSmoking Tobacco: Every PixYwpeyrqseb527 Smokeless Tobacco: Never Tobacco Cessation:Ready to Q uit: Not Asked; Counseling Given: Not Answered Alcohol UseStandard Drinks/WeekCommentsYes0 (1 standard drink = 0.6 oz pure alcohol)ChildcareAnswerDate MytdhvgrQtunqharbTqovkdc16/12/2019EmploymentAnswer Date XwqvqghoHmdclqsjgtYxdazdp30/12/2019Hunger ScreeningAnswerDate Recorded Within the past 12 months we worried whether our food would run out before we got money to buy more.Never True05/28/2025Within the past 12 months the food we bought just didn't last and we didn't have money to get more.Never True 05/28/2025Purpose - LifeAnswerDate RecordedPurpose and direction in lifeUnknown 1CommentsNoSex and Gender InformationValueDate RecordedSex Assigned at BirthNot on fileLegal StgOcryyg79/06/2015 12:10 PM EDTGender IdentityNot on fileSexual OrientationNot on file Last Filed Vital Signs Vital SignReadingTime TakenCommentsBlood Jgnkfxkn382/6705/28/2025 2:35 PM EST Vbfvx106205/28/2025 2:35 PM ESTTemperature--Respiratory Rate--Oxygen Saturation-- Inhaled Oxygen Concentration--Glwqhn57.7 kg (173 lb 9.6 oz)05/28/2025 2:35 PM RCTLrrkmu962.4 cm (5' 5.5 )05/28/2025 2:35 PM ESTBody Mass Index28.45107/28/2024 2:35 PM EST Plan of Treatment DateTypeDepartmentCare Team (Latest Contact Info)Yybybixeozf39/16/2025 2:45 PM ESTProcedure visit [facility] [address] [address] 07/22/2025 2:45 PM ESTHospital Encounter [facility] [address] [place] [address] Tania Asif MD [address] [facility] [facility] [address] [place] [address] 07/22/2025 2:45 PM EST - 07/22/2025 5:30 PM ESTSurgery [facility] [address] [place] [address] Tania Asif MD [address] [facility] [address] [place] [address] DAVINCI HYSTERECTOMY SALPINGO OOPHORECTOMY [[id number] (CPT??)]09/03/2025 3:15 PM EST Office Visit [facility] [address] [place] [address] Tania Asif MD [address] [facility] [address] [place] [address] NamePriorityAssociated DiagnosesDate/TimeDAVINCI HYSTERECTOMY SALPINGO OOPHORECTOMY Cystocele with second degree uterine prolapse 07/22/2025 2:45 PM ESTDAVINCI SUSPENSION LIGAMENT UTEROSACRAL Cystocele with second degree uterine prolapse 07/22/2025 2:45 PM ESTREPAIR ANTERIOR CYSTOCELE VAGINA Cystocele with second degree uterine prolapse 07/22/2025 2:45 PM ESTCYSTOSCOPY Cystocele with second degree uterine prolapse 07/22/2025 2:45 PM ESTHealth MaintenanceDue DateLast DoneCommentsTobacco Yttbxokpln1971Depression Hglwfqhch69/13/1983Adult BMI Follow Up Plan 1989DTaP,Tdap and Td Vaccines (1 - Tdap)1990Pap Smear1992 Zoster (Shingles) Vaccine (1 of 2)2021Influenza Urywcwo1803/24/2025dult BMI Mvpxmapyg29Tobacco Qhlkvvmij03 Goals GoalPatient Goal TypeAssociated ProblemsRecent ProgressPatient-Stated?Author Autogenerated Goal Care PlanAutogenerated ProblemNoElizabeth [employer] Not on file Procedures Procedure NamePriorityDate/TimeAssociated DiagnosisCommentsPOCT URINALYSIS DIPSTICK URQCIuhrhnn47/05/2025 3:04 PM EST Cystocele with second degree uterine prolapse History of reconstructive repair of rectocele Urge urinary incontinence MEASURE POST VOID CZCHEPWOLngywzm54/05/2025 Cystocele with second degree uterine prolapse History of reconstructive repair of rectocele Urge urinary incontinence from Last 3 Months Results * POCT urinalysis dipstick only (05/28/2025 3:04 PM EST)ComponentValueRef Range Test MethodAnalysis TimePerformed AtPathologist SignatureExternal Poct Urine ColorYELLOWMANUALLY TRANSCRIBED RESULTSExternal Poct Urine AppearanceCLEAR MANUALLY TRANSCRIBED RESULTSExternal Poct Urine GlucoseNegativeMANUALLY TRANSCRIBED RESULTSExternal Poct Urine KetonesNegativeMANUALLY TRANSCRIBED RESULTSExternal Poct Urine BloodNegativeMANUALLY TRANSCRIBED RESULTSExternal Poct Urine Dz3VPIWJUIF TRANSCRIBED RESULTSExternal Poct Urine ProteinNegative MANUALLY TRANSCRIBED RESULTSExternal Poct Urine NitriteNegativeMANUALLY TRANSCRIBED RESULTSExternal Poct Urine Leukocyte EsteraseNegativeMANUALLY TRANSCRIBED RESULTSSpecimen (Source)Anatomical Location / LateralityCollection Method / VolumeCollection TimeReceived SwxkKchdb09/05/2025 3:04 PM EST Narrative Authorizing ProviderResult TypeResult StatusNadine C Laya MDPOINT OF CARE TEST ORDERABLESFinal ResultPerforming OrganizationAddressCity/State/ZIP CodePhone Number MANUALLY TRANSCRIBED RESULTS * Measure post void residual (05/28/2025)ComponentValueRef RangeTest Method Analysis TimePerformed AtPathologist LijzdbhvtLbfesw48okCXTGPDXV TRANSCRIBED RESULTSSpecimen (Source)Anatomical Location / LateralityCollection Method / VolumeCollection TimeReceived TimeUrine Narrative Authorizing ProviderResult TypeResult StatusTania Asif MDNURSING ASSESSMENTSFinal ResultPerforming OrganizationAddressCity/State/ZIP CodePhone Number MANUALLY TRANSCRIBED RESULTS from Last 3 Months Additional Health Concerns Active ProblemsNoted DateDiagnosed DateAutogenerated Inuoyps3305/30/2025 Insurance Care Teams Team MemberRelationshipSpecialtyStart DateEnd Date Pascale Arana, CLAIM REP-COURSEWARE DEVELOPER [address] [place] [place] [address] PCP - GeneralNurse Practitioner04/02/25
--- OUTSIDE RECORDS SUMMARY | 2025-06-04 14:54 | XMS_ITS | Encounter Summary ---
Author Organization [facility] tem Address [id number] [address] [place] [address] Care Team Providers Care Forest Patrolman Name Role Phone Pascale Arana SHANK MAKER-SOCIOLOGY PROFESSOR Primary Care Provider Encounter Details DateTypeDepartmentCare Team (Latest Contact Info)Xnvpsxnxdfz27/05/2025Travel Social History Tobacco UseTypesPacks/DayYears UsedDateSmoking Tobacco: Every HwyKp[address]cjz[address] Smokeless Tobacco: NeverAlcohol UseStandard Drinks/WeekCommentsYes0 (1 standard drink = 0.6 oz pure alcohol)ChildcareAnswerDate RecordedChildcareUnknown 01/02/2019EmploymentAnswerDate WxrgymorFfmxuwjkocHldxswj11/12/2019Hunger ScreeningAnswerDate RecordedWithin the past 12 months we worried whether our food would run out before we got money to buy more.Never True05/28/2025Within the past 12 months the food we bought just didn't last and we didn't have money to get more.Never True05/28/2025Purpose - LifeAnswerDate RecordedPurpose and direction in tgcrBdxyigj44/11/2021CommentsNoSex and Gender Information ValueDate RecordedSex Assigned at BirthNot on fileLegal WtdKejvga93/06/2015 12:10 PM EDTGender IdentityNot on fileSexual OrientationNot on filedocumented as of this encounter Plan of Treatment DateTypeDepartmentCare Team (Latest Contact Info)Ibtmjwugsrq71/16/2025 2:45 PM ESTProcedure visit [facility] [address] [place] [phone] 07/22/2025 2:45 PM ESTHospital Encounter [facility] [address] [facility] [place] [address] Tania Asif MD [address] [facility] [address] [place] [address] 07/22/2025 2:45 PM EST - 07/22/2025 5:30 PM ESTSurgery [facility] [address] [place] [address] Tania Asif MD [address] [facility] [address] [place] [address] DAVINCI HYSTERECTOMY SALPINGO OOPHORECTOMY [[id number] (CPT??)]09/03/2025 3:15 PM EST Office Visit [facility] [address] [facility] [address] [place] [address] Tania Asif MD [address] [facility] [address] [place] [address] NamePriorityAssociated DiagnosesDate/TimeDAVINCI HYSTERECTOMY SALPINGO OOPHORECTOMY Cystocele with [...] Teams Team MemberRelationshipSpecialtyStart DateEnd Date Pascale Arana, SHANK MAKER-SOCIOLOGY PROFESSOR [place] [address] PCP - GeneralNurse Practitioner04/02/25documented as of this encounter
--- NOTE | 2025-06-04 15:07 | PM.CN ---
Consult Note: HPI Data of Consult Patient: known to practice within the last 3 years Consult date: 06/04/25 Requesting Physician: Flory Payne NP Primary Care Provider: Pascale Arana NP Consult Narrative Reason for consult: low back pain Narrative: Talia Mercado a pleasant 55 year old female presents for evaluation of chronic low back pain. Pt has failed to benefit from > 6 weeks of PT/HEP, heat, ice, tylenol, NSAIDs. cervical mri and lumbar mri consistent for degenerative changes and mild to moderate stenosis. Pain in low back 2/10 aching, increasing to 8/10 with lifting, driving, standing, sitting, stretching, lifting, bending, stairs, activity. notes improvement with lying. recently underwent bilateral L4-5 L5-S1 MBB #1 and #2 with 100% improvement while anesthetized, preop pain up to 8/10 post op pain 0/10 for at least 2 hours. pt noted significant improvement in pain with driving, standing, walking, and working. cc:: CC: Flory Payne NP [facility] Medical History Overactive bladder ?N32.81 - Overactive bladder (ICD-10) Obesity ?E66.9 - Obesity, unspecified (ICD-10) Nicotine dependence ?F17.200 - Nicotine dependence, unspecified, uncomplicated (ICD-10) History of cystocele ?Z87.448 - Personal history of other diseases of urinary system (ICD-10) PVD (peripheral vascular disease) ?I73.9 - Peripheral vascular disease, unspecified (ICD-10) Iron deficiency anemia ?D50.9 - Iron deficiency anemia, unspecified (ICD-10) Fibromyalgia ?M79.7 - Fibromyalgia (ICD-10) Bipolar disorder ?F31.9 - Bipolar disorder, unspecified (ICD-10) UGIB (upper gastrointestinal bleed) ?K92.2 - Gastrointestinal hemorrhage, unspecified (ICD-10) Anxiety with depression ?F41.8 - Other specified anxiety disorders (ICD-10) Gastro-esophageal reflux ?K21.9 - Gastro-esophageal reflux disease without esophagitis (ICD-10) Arthritis of left foot ?M19.072 - Primary osteoarthritis, left ankle and foot (ICD-10) RP (rectal prolapse) ?K62.3 - Rectal prolapse (ICD-10) Chronic headache ?R51.9 - Headache, unspecified (ICD-10) ?G89.29 - Other chronic pain (ICD-10) Surgical History History of tubal ligation ?Z98.51 - Tubal ligation status (ICD-10) Hx of cholecystectomy ?Z90.49 - Acquired absence of other specified parts of digestive tract (ICD-10) H/O cystoscopy ?Z98.890 - Other specified postprocedural states (ICD-10) H/O esophagogastroduodenoscopy ?Z98.890 - Other specified postprocedural states (ICD-10) Hx of gastric bypass ?Z98.84 - Bariatric surgery status (ICD-10) Family History Mother Family history of diabetes mellitus Father Heart disease Social History Within the past year, how often did you have a drink containing alcohol: never Within the past year, how often did you have six or more drinks on one occasion: never Score interpretation: A score less than 3 is consistent with normal alcohol consumption. 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 Known occupational exposures/hazards: No Highest level of school completed/degree received: high school graduate Little interest or pleasure in doing things: not at all Feeling down, depressed, or hopeless: not at all Do you think of yourself as: straight/heterosexual Gender Identity: female Meds Home Medications and Allergies Home Medications ?Medication ?Instructions ?Recorded ?Confirmed ?Type duloxetine 30 mg capsule,delayed 60 mg PO DAILY 06/19/23 06/02/25 History release (Cymbalta) zolpidem 10 mg tablet (Ambien) 10 mg PO DAILY PRN insomnia 07/11/23 06/02/25 History cyclobenzaprine 10 mg tablet 10 mg PO TID PRN muscle spasm 01/31/25 06/02/25 History fexofenadine 180 mg tablet 180 mg PO DAILY 01/31/25 06/02/25 History (Layla Allergy) gabapentin 300 mg capsule 900 mg PO TID 01/31/25 06/02/25 History (Neurontin) meloxicam submicronized 10 mg 15 mg PO DAILY 01/31/25 06/02/25 History capsule (Vivlodex) vitamin B12 500 mcg-folic acid 400 1 tab PO DAILY 01/31/25 06/02/25 History mcg tablet cariprazine 3 mg capsule (Vraylar) 3 mg PO DAILY 03/10/25 06/02/25 History cholecalciferol (vitamin D3) 25 1,000 unit PO DAILY 05/05/25 06/02/25 History mcg (1,000 unit) capsule mirabegron 50 mg tablet,extended 50 mg PO DAILY 05/05/25 06/02/25 History release 24 hr (Myrbetriq) cyclobenzaprine 10 mg tablet 10 mg PO TID PRN muscle spasm #90 05/21/25 Rx tabs Allergies Allergy/AdvReac Type Severity Reaction Status Date / Time Penicillins Allergy Severe Hives Verified 06/02/25 07:44 Exam Constitutional Documenting provider has reviewed patient's vital signs: yes Common normals: no apparent distress, oriented x3, healthy appearing, alert and well nourished General appearance: cooperative HENAL Common normals: normocephalic, hearing grossly normal bilaterally and moist oral mucous membranes Head and scalp: normocephalic Eye Common normals: PERRL Pupil: PERRL Neck & C-Spine Common normals: full ROM General: normal visual inspection Cervical spine: cervical ROM normal Chest Common normals: inspection of chest normal Respiratory Common normals: normal respiratory effort, no retractions and no use of accessory muscles Back & Pelvis Lumbar spine/lower back: ROM limited, pain with ROM, lumbar spinal tenderness and straight leg raise negative bilaterally Sacroiliac joints: SI joints normal Other: positive facet loading strength 5/5 in BLE Neuro Common normals: oriented x3 Sensorium/orientation: alert Psych Common normals: mental status grossly normal, thought process normal, cooperative, affect normal, speech normal and activity/motor behavior normal Speech: normal speech Thought process: normal thought process Results Additional Findings Additional findings: If on a controlled substance or opioids, I have checked an [place] report on this patient and there are no aberrancies noted in the prescribing history.??If on a controlled substance or opioid a drug screen was completed and reviewed within the last year, and if there has not been a drug screen completed we ordered one today to monitor higher risk, state monitored pain medication use. As part of providing excellent, safe, comprehensive care, the following was completed at our patient's visit: 1. A medication reconciliation and review to ensure accurate knowledge of current/active medications, including asking our patients to inform us about any htql-skq-bsjmxvt medications or herbal remedies/nutritional supplements/alternative remedies. 2. A review to specifically ensure our patients have had annual screening for screening for depression, screening for tobacco use, and screening for unhealthy alcohol use. For concerning screenings had a discussion with the patient, provided patient education, and recommended follow-up with primary care provider when appropriate. If patient noted with a risk of falling, they received education on strength, gait, and balance training to prevent future risk of falling. Portions of this note may have been carried over from the previous visit and updated as appropriate. Please note this office utilizes paper charting in addition to the electronic medical record. A list of current medications, vitals, and PMH is available there as the clinical staff outside of myself do not have access to [facility] charting during the clinic day operations. As part of providing quality comprehensive care the current medications, vitals, and PMH were reviewed in the paper chart. Assessment and Plan Assessment and Plan (1) Lumbar spondylosis: (2) Myofascial pain: Plan The patient has had over 3 months of moderate to severe low back pain with functional impairment and inadequate response to conservative care including NSAIDS (unless there are contraindication such as concurrent blood thinners), multiple oral or topical pain medications, and home exercise program/physical therapy.? Patient has completed >6 weeks of guided home exercise program and/or formal physical therapy program without relief of their symptoms.? I have reviewed the imaging of the lumbar spine and no red flags were identified.? The Oswestry Disability Index was completed, and the patient scored a 36%.? bilateral L4-5 L5-S1 medial branch RFA for facet mediated low back pain with 15mg po valium for anxiolysis to reduce patient movement and potential complications from injection therapy. pt notes previously 10mg po valium was not effective therefore we are escalating to 15mg continue current medications continue HEP as tolerated f/u 1 month after RFA
== END 2025-06-04 14:50 | disposition home or self-care (01) ==
LOC: PM 14:49
PROVIDERS: PCP Nurse Practitioner; Visit Provider Nurse Practitioner
DX: M47.816 Spondylosis without myelopathy or radiculopathy, lumbar region (principal); M79.18 Myalgia, other site
CPT/HCPCS: G0463

== ENCOUNTER 2025-06-16 08:00 | Day surgery (SDC) | payer OTHER, SELFPAY ==
--- OUTSIDE RECORDS SUMMARY | 2019-11-19 06:15 | XMS_ITS | Continuity of Care Document ---
Author Organization [facility] Address [address] [facility] [place] [address] Phone Care Team Providers Care Maintenance Associate Name Role Phone Bernardo WELLER, Mathew Early Unavailable Procedures Procedure Date POSTOP FOLLOW-UP VISIT POSTOP FOLLOW-UP VISIT Gastric Bypass LAP GASTRIC BYPASS/YOUSUF-EN-Y OFFICE/OUTPATIENT VISIT, EST OFFICE/OUTPATIENT VISIT, NEW Advance Directives Directive Yes / No Effective Date File Name No Information Encounters Encounter Description Practice Location Reason(s) For Visit Diagnoses Date Provider Providers Copied on Encounter [facility], [address] [place] [address], [id number], tel:[phone] [facility] No Information Bernardo Carmona. [address], [id number], [place]. tel:[phone] Referring Provider: Mathew Boudreaux, [address], [address]. tel:[phone] [facility], [address] [place] [address], [id number], tel:[phone] [facility] No Information Laci Londono. [address] [facility] [address], [place], [id number], [place]. tel:[phone] Referring Provider: Spring Aguero, [address] [facility] [address], [place], [address]. tel:[phone] [facility], [address] [place] [address] [address], [place], [place], [id number], [place] tel:[phone] [facility] IP No Information Laci Londono. [address], [place], [place], [id number], [place]. tel:[phone] Referring Provider: Spring Aguero, [address] [facility] [address], [place], [address]. tel:[phone] [facility], [address] [place] [address] [address], [place], [place], [id number], [place] tel:[phone] [facility] IP No Information Bernardo Carmona. [address] [facility] [address], [place], [place], [id number], [place]. tel:[phone] Referring Provider: Mathew Boudreaux, [address] [facility] [address], [place], [address]. tel:[phone] OFFICE/OUTPATI ENT VISIT, [facility], [address] [facility] [address], [place], [place], [id number], [place] tel:[phone] [facility] No Information Bernardo Carmona. [address] [facility] [address], [place], [place], [id number], [place]. tel:[phone] Referring Provider: Mathew Boudreaux, [address] [facility] [address], [place], [address]. tel:[phone] OFFICE/OUTPATI ENT VISIT, [facility], [address] [place] [address] [address], [place], [place], [id number], [place] tel:[phone] [facility] No Information Bernardo Carmona. [address] [facility] [address], [place], [place], [id number], [place]. tel:[phone] Referring Provider: Mathew Boudreaux, [address] [facility] [address], [place], [address]. tel:[phone] Family History Family Member Type Diagnosis Age At Onset No Information Payers Payer name Insurance type Covered libertarian ID Bijal elmore(anastasiia Ruiz [id number] Social History Type Description Quantity Date Captured Comments Sex Female Smoking Status No Information Chief Complaint And Reason For Visit No Information Reason For Referral Reason For Referral No Information History Of Present Illness Encounter Date Complaint History Of Prese nt Illness No Information Functional Status Date Functional Assessmen t No Information Instructions Date Instruction Additional Infor mation No Information Assessments Type Assessment Date No Information Patient Care Teams Name Effective Dates (start - stop) Status Members No Information
--- OUTSIDE RECORDS SUMMARY | 2024-09-03 10:30 | XMS_ITS ---
Author Organization The [facility] in [place] Address [address] [place] [address] Care Team Providers Care Dressmaker Helper Name Role Phone None, Unknown or Primary Care Provider Unavailab Mathwe Lee Unavailable [phone] REASON FOR VISIT Left foot, surgical discussion about removal of hardware Encounters Encounter Location Date Provider Diagnosis [facility] (PODIATRY) [address] [place] [address] [place] [address] 09/03/2024 Mathew Hoff Left foot pain M79.672 Assessments Encounter Date Diagnosis (ICD Code) Assessment Notes Treatment Notes Treatment Clinical Notes Section Notes 09/03/2024 Left foot pain (ICD-10 - M79.672 ) Plan Of Treatment Pending Test Test Name Order Date XR Foot LT (3 views) * 09/03/2024 Progress Notes * Tlaia RUTHERFORDDOB:[birth year] (55 yo F)Acc No.[id number]:09/03/2024 UNLOCKED PROGRESS NOTE Follow Up Patient: Talia FREED :?Mathew Hoff DPLashaun, MSDOB:1970???Age: 54 Y???Sex:FemaleDate:09/03/2024Phone:[phone]:270 [address] [id number]:Unknown or None Subjective: * Chief Complaints: * 1 . Left foot, surgical discussion about removal of hardware. * Medical History: Objective: * Vitals: Assessment: * Assessment: 1.?Left foot pain - M79.672??? Plan: * Treatment: ?Imaging: XR Foot LT (3 views) * * * Electronic signature of Mathew Hoff DPM on 06/16/2025 at 08:04 AM ESTSign off status: PendingVisit Status:?N/S N/C (No Show/No Charge) * Provider: Miguel Hoff DPM, MS Date: 0 09/03/2024 Generated for Printing/Faxing/eTransmitting on:?06/16/2025 08:04 AM EST
--- OUTSIDE RECORDS SUMMARY | 2025-06-02 15:00 | XMS_ITS | Encounter Summary ---
Author Organization [facility] Address [address] [place] [address] Care Team Providers Care Cooler Room Worker Name Role Phone Molina De Anda MD Primary Care Provider [phone] Valerie Groves CHROME WORKER Unavailable [phone] Karime Dias [facility] + [phone] Reason for Visit * ReasonCommentsMed ManagementFollow-up Encounter Details DateTypeDepartmentCare Team (Latest Contact Info)Tdjpohbkxsl56/10/2025 3:00 PM ESTOffice Visit [facility] [address] [place] [address] Macarena Chang, FACILITY MAINTENANCE MANAGER-[facility] [address] [place] [address] Severe episode of recurrent major depressive disorder, without psychotic features (HCC) Social History Tobacco UseTypesPacks/DayYears UsedDateSmoking Tobacco: Every PpdSqgfcuyypz328.9 Started: 1985Passive Smoke Exposure: PastSmokeless Tobacco: Never [...] times a week08/07/2023How often do you attend jew or orthodox services?Never08/07/2023o you belong to any clubs or organizations such as jew groups, unions, fraternal or athletic groups, or school groups?No08/07/2023How often do you attend meetings of the clubs or organizations you belong to?Patient mvqdybnt33/15/2024re you , , , , never , or living with a partner?Syrorcp7808/07/2023 AUDIT-CAnswerDate RecordedQ1: How often do you have [...] at all 08/07/2023HQ-2AnswerDate RecordedPatient Health Questionnaire-2 Score5 01/22/2025[facility] [place] of Occupational Health - Occupational Stress QuestionnaireAnswerDate RecordedDo you feel stress - tense, restless, nervous, or anxious, or unable to sleep at night because yourmind is troubled all the time - these days?To some geonvq9008/07/2023Exercise Vital SignAnswerDate Recorded On average, how many [...] steady place to sleep or slept in [facility] (including now)?No08/07/2023Comments UnknownSex and Gender InformationValueDate RecordedSex Assigned at BirthNot on fileLegal GahPzoydi33/15/2023 7:47 PM EDTGender IdentityNot on fileSexual OrientationNot on filedocumented as of this encounter Last Filed Vital Signs Vital SignReadingTime TakenCommentsBlood Icgsbokd84/6411 2:52 PM EST Ztaln258206/02/2025 2:52 PM ESTTemperature--Respiratory Rate--Oxygen Saturation-- Inhaled Oxygen Concentration--Ppkqcb04.7 kg (178 lb)06/02/2025 2:52 PM ESTHeight --Body Mass Index29.62010/02/2024 4:51 PM EDTdocumented in this encounter Plan of Treatment DateTypeDepartmentCare Team (Latest Contact Info)Rykssuhvoxs90/03/2025 2:00 PM ESTOffice Visit [facility] [address] [place] [address] Macarena Chang, FACILITY MAINTENANCE MANAGER-SHAKER REPAIRER 112 [facility] [address] [place] [address] documented as of this encounter Goals GoalPatient [...] MemberRelationshipSpecialtyStart DateEnd Date Molina De Anda MD [address] [facility] [address] PCP - GeneralFamily Medicine02/21/24 Valerie Groves NP Nurse PractitionerFamily Medicine02/21/24 Karime Dias [facility] [address] [facility] [address] [place] [address] Nurse PractitionerWarren General Hospital01/22/25documented as of this encounter
--- OUTSIDE RECORDS SUMMARY | 2025-06-06 07:11 | XMS_ITS | Continuity of Care Document ---
Author Organization [facility] Address [address] [place] [address] Phone Care Team Providers Care Director Medical Surgical Name Role Phone Shun Arshad MD Attending Provider Pascale AranaC Primary Care Provider Shun Arshad MD Other Provider Loc Aguayo MD Attending Provider Pascale Arana NP-C Attending Provider Clinton Del Toro APRN Attending Provider Mary Kaufman MD Attending Provider Mary Kaufman MD Other Provider Care Teams Patient Care Team Team Status: Active Member Role/Relationship Status Dates Pascale Arana NP-C Primary Care Provider Active Visit Care Team Team Status: Inactive Member Role/Relationship Status Dates Shun Arshad MD Attending Provider Active Star t: March 25, 2025 End: March 25, 2025NORMA MalikCPrimary Care ProviderActiveStart: March 25, 2025 End: March 25, 2025 Visit Care Team Team Status: Active Member Role/Relationship Status Dates NORMA MalikC Primary Care Provider Active Start: April 23, 2025 Shun Arshad MDOther ProviderActiveStart: April 23, 2025 Loc Aguayo MDAttending ProviderActiveStart: April 23, 2025 Visit Care Team Team Status: Inactive Member Role/Relationship Status Dates Pascale Bang Arana , APPLIED PSYCHOLOGY TEACHER-C Primary Care Provider Active Start: April 30, 2025 End: April 30, 2025Galinasa Bang Arana , APPLIED PSYCHOLOGY TEACHER-CAttending ProviderActiveStart: April 30, 2025 End: April 30, 2025 Visit Care Team Team Status: Active Member Role/Relationship Status Dates Pascale Bang Arana , APPLIED PSYCHOLOGY TEACHER-C Primary Care Provider Active Start: May 05, 2025 Pascale Arana , APPLIED PSYCHOLOGY TEACHER-CAttending ProviderActiveStart: May 05, 2025 Visit Care Team Team Status: Inactive Member Role/Relationship Status Dates Pascale Bang Arana , APPLIED PSYCHOLOGY TEACHER-C Primary Care Provider Active Start: May 05, 2025 End: May 05, 2025Clinton Del Toro APRNAttending ProviderActiveStart: May 05, 2025 End: May 05, 2025 Visit Care Team Team Status: Inactive Member Role/Relationship Status Dates Pascale Bang Arana , APPLIED PSYCHOLOGY TEACHER-C Primary Care Provider Active Start: May 26, 2025 End: May 26, 2025Pascale Arana , APPLIED PSYCHOLOGY TEACHER-CAttending ProviderActiveStart: May 26, 2025 End: May 26, 2025 Visit Care Team Team Status: Inactive Member Role/Relationship Status Dates Pascale Bang Mezahholantwon , APPLIED PSYCHOLOGY TEACHER-C Primary Care Provider Active Start: June 05, 2025 End: June 05, 2025Pascale Arana , APPLIED PSYCHOLOGY TEACHER-CAttending ProviderActiveStart: June 05, 2025 End: June 05, 2025 Patient Care Team Team Status: Active Member Role/Relationship Status Dates Pascale Bang Arana , APPLIED PSYCHOLOGY TEACHER-C Primary Care Provider Active Start: June 06, 2025 Sylvia Álvarez ProviderActiveStart: June 06, 2025 Mary Kaufman MDOther ProviderActiveStart: June 06, 2025 Chief Complaint and Reason for Visit Chief Complaint Admit Date Spinal stenosis, cervical region Septemb 2024 8:29am G56.01 April 23, 2025 8: 25am Established Patient April 30, 2025 4: 13pm REF GERD, CARA, BARIATRIC SURGERY STATUS May 05, 2025 2:21pm cough, runny nose May 26, 2025 3 :57pm depression June 05, 2025 2:50pm dyspepsia,hx of gastric bypass June 06, 2025 9:23am Reason for Visit Admit Date Carpal tunnel [...] :21pm CARA (iron deficiency anemia) April 2:21pm Bronchitis May 26, 2025 3 :57pm Environmental and seasonal allergies Nov emb2024 3:57pm Overweight May 26, 2025 3 :57pm JESSIKA (generalized anxiety disorder) Novem 2024 2:50pm Severe episode of recurrent major depressive disorder, with psychotic features June 05, 2025 2:50pm Allergies, Adverse Reactions, Alerts Allergen Type Severity Reaction Last Updated Verified Status penciclovir Allergy Unknown hives May 26, 2025 1:36pm Angelo meza Active Penicillins Allergy Unknown Hives May 26, 2025 1:36pm Angelo meza Active Social History Smoking Status Status Start Date End Date Date of Observa tion Smokes tobacco daily (finding) May 26, 2025 4:41pm Observation Status Observation Response Date of Response Legal Sex Female (finding) Sex Assigned At BirthFemaleSeptember 1969 Family History Relationship Condition Age at Onset [...] fatigue April 23, 2025 6:28pm Unknown Active Overweight May 26, 2025 4:42pm Unknown Ac tive Environmental and seasonal allergies April 07 025 7:37pm Unknown Active Uterine prolapse April [...] pain May 05, 2025 1:29pm Unknown Active Bronchitis May 26, 2025 4:43pm Unknown Ac tive Class 1 obesity due to exces s [...] for shortness of breath or wheezing 8.5 0Sept2024 10:36amShortness of breath Shortness of breathComplies with drug therapyFexofenadine 180 mg gbzoynMzvhli168 JDLCSnmax693Kuzcbkvbn 15th, 2025 7:36pmEnvironmental and seasonal allergies Other allergic rhinitisComplies with drug therapySucralfate (Carafate) 1 gram fqldnhBcqiun4RIGS8x/Day before meals & shtfdsy0559Qhcgaqas 4th, 2025 7:29am Gastroesophageal reflux disease without esophagitis Gastro-esophageal reflux disease without esophagitisUnknownGabapentin 300 mg rfwkzxlAmyxhl653KPHCIzfbb times hrqrv036Qhxwpjem 7th, 2025 3:07pmFibromyalgia FibromyalgiaComplies with drug therapyCyclobenzaprine 10 mg tabletDiscontinuedMG POSept2024 11:00pmOctober 2024 9:25amTolterodine 4 mg capsule,extended release 24hrDiscontinuedMGPOSept2024 11:00pmOctober 2024 1:25pmMeloxicam 15 mg tabletDiscontinuedMGPOSeptember 2024 11:00pmNov2024 1:39pmFexofenadine 180 mg tabletDiscontinuedMGPO March 24, 2025 11:00pmSeptember 2024 7:37pmLansoprazole 30 mg capsule,delayed release(DR/EC)DiscontinuedMGPOSept2024 11:00pm May 26, 2025 1:39pmGabapentin 300 mg capsuleDiscontinuedMGPOSeptember 2024 11:00pmOctober 2024 9:25amZolpidem 10 mg ylprsaMfnqjc90DWEBHtlacqi as needed for sleepSept2024 11:00pmComplies with drug therapyAlbuterol Sulfate 90 mcg/actuation HFA aerosol inhalerDiscontinuedINHALATIONSept2024 11:00pmSeptember 2024 10:38amFluticasone Propionate 50 mcg/actuation spray,gsxsibdjoqAhqrrh1CSVIXTGSLADOIFNQa DirectedSept2024 11:00pm Complies with drug therapyCholecalciferol (Vitamin D3) 125 mcg (5,000 unit) mchvcrtWqcqia202URBDIZrzdgSzdkrizcp 2024 11:00pmComplies with drug therapy Duloxetine 30 mg capsule,delayed release(DR/EC)Htceni87SKWJWbftoxoRoikucbou 1st, 2025 11:00pmComplies with drug therapyDuloxetine 60 mg capsule,delayed release(DR/EC)Qngvpj57AGOT.amSeptember 2024 11:00pmComplies with drug therapyCariprazine (Vraylar) 3 mg capsuleDiscontinuedMGPOSeptember 2024 11:00pmOctober 2024 9:23amCyclobenzaprine 10 mg jztznnIhxtts72STBUBmfob times daily as needed for muscle spasmOctober 2024 9:23amComplies with drug therapyGabapentin 300 mg anyfrmhFuowkkipvmhv125ACRJEstqw times dailyOctober 2024 9:25amNovember 2024 3:08pmCyanocobalamin (Vitamin B-12) 1,000 mcg uzcvyaSzgjaj7327PCDWACwcxkCdlqzqf 2024 11:00pmComplies with drug therapy Cariprazine (Vraylar) 4.5 mg capsuleActive4.5MGPODailyOctroberts chapel 2024 11:00pm Complies with drug therapyEstradiol 0.01 % (0.1 mg/gram) pffisIordnu2NPPXTJVJC Twice a WeekOct2024 11:00pmComplies with drug therapySucralfate (Carafate) 1 gram lxhncmDlqnwoukvrfp9UDYZ2y/Day before meals & idcozku9041 April 29, 2025 11:00pmMay 27, 2025 7:29amGastroesophageal reflux disease without esophagitis Gastro-esophageal reflux disease without esophagitisMirabegron (Myrbetriq) 50 mg tablet extended release 24 peRbtdau21BBEQOncatLzkwign 2024 11:00pmComplies with drug therapyEsomeprazole Magnesium (Nexium Packet) [address] for susp in hxjwqnYiunidggobqr72EJAZEzdin47832Rbtrcrb 2024 11:00pmNov2024 1:38pmDoxycycline Hyclate 100 mg qeujqkkLkvgxy172CCVBExsiz cfaxy212 May 26, 2025 12:00amBronchitis Bronchitis, not specified as acute or chronicComplies with drug therapy Benzonatate 200 mg xfcqtrhWjhlha835EIMAApqha times daily as needed for kodfz129 May 26, 2025 12:00amBronchitis Bronchitis, not specified as acute or chronicComplies with drug therapy Relevant Diagnostic Tests and/or Laboratory Data Laboratory Results Test Collection Date/Time Result Date/Time Result Interpretation Reference Range Result Comment Performing Site Urine Other Casts May 05, 2025 7:38am NONE SEEN #/LPFNONE SEENVitamin B12 LevelOct2024 7:44amOctober 2024 7:44am>2000 pg/mLAbnormal (applies to non-numeric results)[id number] at: [facility] [id number] Director: Hector Franco PhD, Phone: [phone] 13th, 2025 7:44am May 05, 2025 7:93bo982 mg/mH165-591Lwvxnrvmp at: [facility] [place], [place] [id number] Director: Hector Franco PhD, Phone: [phone] SaturationOct2024 7:44amOctober 2024 7:44am27.4 %25-Hydroxy Vitamin D TotalOctober 2024 7:44amOctober 2024 7:44am 69.7 ng/mL<20 ng/mL Vit D fdffyeygs53-<30 ng/mL Vit D tumknevudikm38-883 ng/mL Vit D sufficient>100 ng/mL Potential ToxicityFerritinOctober 2024 7:44am May 05, 2025 7:44am30.0 ng/mL8.0-252.0Cholesterol/HDL RatioOctober 2024 7:44amOctober 2024 7:44am2.33.3 - 4.4 LOW RISK4.4 - 7.1 AVERAGE RISK7.1 - 11.0 MODERATE RISK>11.0 HIGH RISKAnion GapOctober 2024 7:44am May 05, 2025 7:44am13.1Basophils # (Auto)May 05, 2025 7:44amOctober 2024 7:44am0.1 10 3/uL0.0-0.1Urine Other CrystalsOctober 2024 7:38am None Seen #/HPFNone SeenIron LevelOctober 2024 7:44amOctober 2024 7:44am83.0 ug/dL50.0-170.0Cholesterol LevelOctober 2024 7:44amOctober 2024 7:42cz899 mg/dL<=200Albumin/Globulin RatioOctober 2024 7:44am May 05, 2025 7:44am1.2Basophils (%) (Auto)May 05, 2025 7:44amOctober 2024 7:44am1.1 %0.2-2.0Urine BacteriaOctober 2024 7:38amTRACE #/HPF Abnormal (applies to non-numeric results)NONE SEENTotal Iron Binding Capacity May 05, 2025 7:44amOctober 2024 7:99mr474.0 ug/dL250.0-450.0HDL CholesterolOct2024 7:44amOctober 2024 7:44am51 mg/dL40-60> or =60 mg/dl - LOW CARDIOVASCULAR RISK<40 mg/dl - HIGH CARDIOVASCULAR RISKAlbumin May 05, 2025 7:44amOctober 2024 7:44am3.6 g/dL3.4-5.0Eosinophils # (Auto)May 05, 2025 7:44amOctober 2024 7:44am0.4 10 3/uL0.0-0.7Urine BilirubinOctober 2024 7:38amNEGATIVENEGATIVELDL Cholesterol, Calculated May 05, 2025 7:44amOctober 2024 7:44am52.2 mg/dL<100 mg/dl OURKKDJ647-803 mg/dl NEAR OR ABOVE EIWGPME323-708 mg/dl BORDERLINE XVSB426-923 mg/dl HIGH>190 mg/dl VERY HIGHAlkaline PhosphataseOctober 2024 7:44am May 05, 2025 7:44am95 U/J26-918Jdrevvppnfk (%) (Auto)May 05, 2025 7:44amOctober 2024 7:44am6.2 %0.9-7.0Urine Occult BloodOctober 2024 7:38amNEGATIVENEGATIVETriglycerides LevelOctroberts chapel 2024 7:44amOctober 2024 7:44am64 mg/dL<=150Alanine Aminotransferase (ALT/SGPT)May 05, 2025 7:44amOctober 2024 7:44am25 U/J06-09PozitoyifyLejliks 2024 7:44am May 05, 2025 7:44am40.7 %36.0-48.0Urine AppearanceOctober 2024 7:38amCLEARCLEARVLDL CholesterolOctroberts chapel 2024 7:44amOctober 2024 7:44am12.8 mg/dLAspartate Amino Transf (AST/SGOT)May 05, 2025 7:44am May 05, 2025 7:44am23 U/E10-39AwroalxojfPdmpqlq 13th, 2025 7:44amOctober 2024 7:44am13.6 g/dL12.0-16.0Urine ColorOctober 2024 7:38amLT. YELLOWYELLOWBUN/Creatinine RatioOctober 2024 7:44amOctober 2024 7:44am25.8Immature Granulocyte # (Auto)May 05, 2025 7:44amOctober 2024 7:44am0.01 10 3/uL0.00-0.03Urine Glucose (UA)May 05, 2025 7:38am NEGATIVE mg/dLNEGATIVEBlood Urea NitrogenOct2024 7:44amOctober 2024 7:44am16.0 mg/dL7.0-18.0Immature Granulocyte % (Auto)May 05, 2025 7:44amOctober 2024 7:44am0.1 %0.0-0.5Urine KetonesOctober 2024 7:38amNEGATIVE mg/dLNEGATIVECalcium LevelOct2024 7:44amOctober 2024 7:44am8.7 mg/dL8.5-10.1Lymphocytes # (Auto)May 05, 2025 7:44amOctober 2024 7:44am2.7 10 3/uL1.2-3.8Urine Leukocyte EsteraseOct2024 7:38amNEGATIVENEGATIVEChloride LevelOctober 2024 7:44amOctober 2024 7:25ee491 mmol/K51-829Mjpylxknewz (%) (Auto)May 05, 2025 7:44amOctober 2024 7:44am39.2 [...] 05, 2025 7:44amOctober 2024 7:44am5.2 %1.7-12.0Urine Specific GravityOctober 2024 7:38am <=1.005Abnormal (applies to non-numeric results)1.005-1.025Glucose LevelOct2024 7:44amOctober 2024 7:44am77 mg/sT18-175Wyak Platelet Volume May 05, 2025 7:44amOctober 2024 7:44am9.7 fL9.5-13.5Urine Squamous Epithelial CellsOctober 2024 7:38amFEW #/LPFAbnormal (applies to non- numeric results)NONE/RAREPotassium LevelOctober 2024 7:44amOctober 2024 7:44am4.0 mmol/L3.5-5.1Neutrophils # (Auto)May 05, 2025 7:44amOctober 2024 7:44am3.4 10 3/uL1.4-6.5Urine UrobilinogenOctober 2024 7:38am 0.2 EU/dL0.2-1.0Sodium LevelOctober 2024 7:44amOctober 2024 7:44am 144 mmol/B751-263Thicaosjvvq (%) (Auto)May 05, 2025 7:44amOctober 2024 7:44am48.2 %43.0-75.0Urine WBCOctober 2024 7:38amNONE SEEN #/HPFNONE SEENTotal BilirubinOct2024 7:44amOctober 2024 7:44am0.3 mg/dL 0.2-1.0Platelet CountOct2024 7:44amOctober 2024 7:61ni038 10 3/zT343-185Cxgbs ProteinOctober 2024 7:44amOctober 2024 7:44am6.6 g/dL6.4-8.2Red Blood CountOctober 2024 7:44amOctober 2024 7:44am4.22 10 6/uL4.20-5.40Red Cell Distribution WidthOct2024 7:44amOctober 2024 7:44am12.6 %11.0-15.0Corrected White Blood CountOct2024 7:44amOctober 2024 7:44am7.0 10 3/uL4.0-11.0 Vital Signs Vital Reading Result Reference Range Collection Date/Time Height 65 [in_i] March 25, 2025 7:06leNkoqfb56.60 kgSept2024 7:37amBMI (Body Mass Index)29.2 kg/s2Enesvktnn2024 7:21wnLconlr66 [in_i]April 30, 2025 3:47kkXiiboi52.08 kgOct2024 3:44pmBody Uutpfejvugl98 [degF]97.6-99.0 April 30, 2025 3:44pmHeart Rate65 /gyo15-966Ipeodkj 8th, 2025 3:44pm Respiratory rate16 /hra32-83Zabqexu 8th, 2025 3:44pmOxygen saturation by Pulse %95-100Oct2024 3:44pmBP Uuelqnzl47 mm[Hg]100-140Oct2024 3:44pmBP Fsvabvfdr87 mm[Hg]60-100Oct2024 3:44pmBMI (Body Mass Index)29.3 kg/y3Bqzflwm2024 3:66deTduazd84 [in_i]May 05, 2025 1:17rsYpynkx22.83 kgOct2024 1:29pmHeart Rate83 /yav27-379Ncvfhku 13th, 2025 1:29pmBP Rqgbxplk38 mm[Hg]100-140Oct2024 1:29pmBP Bgzebsran88 mm[Hg]60-100Oct2024 1:29pmBMI (Body Mass Index)29.2 kg/m2 May 05, 2025 1:05tjSobhpn22 [in_i]May 26, 2025 4:34shFzekid57.37 kg May 26, 2025 4:20pmBody Qpghqlcgqcn69.5 [degF]97.6-99.0May 26, 2025 4:20pmHeart Rate93 /ptj28-087Cykkpmle 3rd, 2025 4:20pmRespiratory rate18 /min 12-24Nov2024 4:20pmOxygen saturation by Pulse dbmeadnx82 %95-100 May 26, 2025 4:20pmBP Djqzqgaf49 mm[Hg]100-140Nov, 2025 4:20pmBP Izjbjdamh05 mm[Hg]60-100May 26, 2025 4:20pmBMI (Body Mass Index)29.1 kg/m2 May 26, 2025 4:00pzUkomgk24 [in_i]June 05, 2025 3:98wiEgmvgy37.70 kg June 05, 2025 3:19pmBody Bhsgtkvohfo54.6 [degF]97.6-99.0June 05, 2025 3:19pmHeart Rate85 /kqg38-187MkgvjrnuJune 05, 2025 3:19pmRespiratory rate16 /pdn45-62VshjwzpxJune 05, 2025 3:19pmOxygen saturation by Pulse phpzazdx13 %95-100 June 05, 2025 3:19pmBP Eiqzhthy834 mm[Hg]100-140June 05, 2025 3:19pm BP Mflsnnidy36 mm[Hg]60-100June 05, 2025 3:19pmBMI (Body Mass Index)29.9 kg/i6JvtxcuskJune 05, 2025 3:85jiHefybr46 [in_i]June 06, 2025 9:34amWeight 80.28 kgJune 06, 2025 9:34amHeart Rate82 /taf24-045JkzlswkcJune 06, 2025 11:52amRespiratory rate16 /zin01-34HicqwtjpJune 06, 2025 11:52amOxygen saturation by Pulse tkjplajq42 %95-100June 06, 2025 11:52amBP Gaccmylc79 mm[Hg] 100-140June 06, 2025 11:52amBP Hswwutzcy61 mm[Hg]60-100June 06, 2025 11:52am Advance Directives Advance Directive Response Recorded Date/ Time Advance Directives No March 6:38pm Insurance Providers Guarantor Letitia Quintanilla Address [address] [facility] [address]Qfhubpa Info.Home Phone: Coverage Status Update:2025 Payer Group Member ID Coverage Type Subscriber Relationship to Subscriber Effective Date Expiration Date [employer] Id: [id number] Schooley , D Id: [id number] [address] [place] [address] Home Phone: Email: [email or web address] Encounters Encounter Location(s) Arrival/Admit Date Discharge/Departure Date Discharge/Departure Disposition Provider(s) Departed Physician/ Provider Office Visit -[facility] March 25, 2025 8:29am March 25, 2025 9:00am Discharged to home care or self care (routine discharge) Shun Arshad MD Non-patient / Non-visit -[facility] April 23, 2025 8:25am Letitia Salazar MDDeparted Physician/Provider Office Visit-[facility] [place] 20[place] 4:13pmOctober 2024 5:27pmDischarged to home care or self care (routine discharge)Ann Malik-patient / Sfd[facility]uxczh[facility] [employer]October 2024 8:38amPascale Arana NP-CDeparted Physician/Provider Office Visit[facility] 2024 2:21pmOctober 2024 2:59pmDischarged to home care or self care (routine discharge)Clinton Del Toro APRNDeparted Physician/Provider Office Visit-[facility] [place] 2024 3:57pmNovember 2024 4:38pmDischarged to home care or self care (routine discharge)NORMA MalikCDeparted Physician/Provider Office Visit-[facility] [place] 2024 2:50pmNovember 2024 3:56pmDischarged to home care or self care (routine discharge)Ann Malik-patient / [facility] 2024 9:23Joann Kaufman MD Recent Diagnosis Onset Date Admit Date Carpal tunnel syndrome of right wrist Unknown March 25, 2025 8:29am Cervical stenosis of spine Unknown Mare 2024 8:29am Piriformis syndrome of right side [...] 2:21pm CARA (iron deficiency anemia) Unknown Apr maryse2024 2:21pm Bronchitis Unknown May 26 3:57pm Environmental and seasonal allergies Unknown May 26, 2025 3:57pm Overweight Unknown May 26 3:57pm JESSIKA (generalized anxiety disorder) Unknown June 05, 2025 2:50pm Severe episode of recurrent major depressive disorder, with psychotic features Unknown June 05, 2025 2:50pm Assessments Diagnosis Onset Date Resolution Status Admit Date Carpal tunnel syndrome of right wrist acuteSept2024 8:29amCervical stenosis of spineacuteSept2024 8:29amPiriformis syndrome of right sideacuteSept2024 8:29amClass 1 obesity due to excess calories without serious comorbidity in adultacute April 30, 2025 4:13pmFibromyalgiaacuteOctober 2024 4:13pmGERD without esophagitisacuteOct2024 4:13pmIDA (iron deficiency anemia)acuteOctober 2024 4:13pmNicotine dependenceacuteOct2024 4:13pmOveractive bladder due to prolapse of female genital organacuteOct2024 4:13pm Severe episode of recurrent major depressive disorder, with psychotic features acuteOctober 2024 4:13pmBloatingacuteOctober 2024 2:21pmDyspepsia acuteOctober 2024 2:21pmH/O gastric bypassacuteOctober 2024 2:21pm History of GI bleedacuteOctober 2024 2:21pmIDA (iron deficiency anemia) acuteOctober 2024 2:21pmBronchitisacuteNovember 2024 3:57pm Environmental and seasonal allergiesacuteNov2024 3:57pmOverweight acuteNov2024 3:57pmGAD (generalized anxiety disorder)[facility]Nov[facility] 2024 2:50pmSevere episode of recurrent major depressive disorder, with psychotic featuresacuteNovbanner [facility] 2024 2:50pm Plan of Treatment Author Shun Arshad [facility]2024 8:32amI independently evaluated the MRI of the [...] see the patient after. Author Pascale Arana [facility] 2024 5:06pmcurrent meds: duloxetine, flexeril, gabapentin Recommendations: [...] meds due to freq urination has seen SUPERIOR COURT JUSTICE in the last month, they are ordering [...] ensure stabilization of her condition Author Clinton Del Toro [facility] CenterAuthoredOctober 2024 2:09pm- Order EGD for [...] meal - Follow-up in office post EGD. Author Pascale [facility] 2024 4:43pmoral meds and nasal spray doxy, albuterol , tessalon fluids, rest fu if not better would like a work note Author Pascale [facility] 2024 10:27pmcurrent meds: yomaira juniorictal [facility] psych pt to file for disability possibly cont with [facility] Future Tests Future scheduled test information is unavailable Pending Tests Test Name Ordered Date Scheduled Date Comprehensive Metabolic Panel April 30, 2025 6:14am Future Visits Future appointment information is unavailable Future Procedures Procedure Name Ordered Date Scheduled Date Discharge Order June 06, 2025 11:23am Nove mber 2024 11:23am NE emg UE RT March 25, 2025 10:45am Dipstick and MicroscopicOctober 2024 6:14amVitamin Q54Nunldmm 2024 6:14amFerritinOctober 2024 6:14am Future Medications Future medication information is unavailable Patient Instructions Instruction Admit Date Know your Meds June 06, 2025 9:23am Hospital Discharge Instructions Additional Instructions DISCHARGE INSTRUCTIONS FOR UPPER ENDOSCOPY WHAT TO EXPECT: - You may feel full, gassy or cramping after your procedure. In some cases, this may be from a few hours to a day. Walking may help relieve the discomfort. - Your throat may feel sore today from the scope that the doctor passed through your throat to visualize your stomach. Take a throat lozenge or suck on ice to ease the discomfort. - You may notice some streaks of blood in your sputum if the doctor has taken a biopsy. - You should begin to recover from anesthesia within 1 hour of the procedure, however may feel groggy for the next 24 hours. DO's AND DON'Ts: - Call your doctor right away if you have a hard abdomen, severe pain, vomiting or if you cough up large amounts of blood. - Call your doctor if you develop any rashes, hives or difficulty breathing. - If you take 81 mg aspirin for your heart it is safe to resume this medication. - If you take other blood thinner medications your doctor will instruct you when these can safely be resumed. - Do NOT drive for 24 hours. - Do NOT operate machinery such as power tools, lawn mowers, snow blowers, sewing machines, etc. for 24 hours. - Avoid alcoholic beverages and drugs for allergies, nerves, or sleep. - Do NOT stay alone. Do NOT leave your child unattended. - Do NOT make important personal or business decisions or sign any legal documents. - Eat solid foods and drink liquids in smaller amounts than usual until normal appetite returns. If you should experience an upset stomach, liquids high in sugar content (soda, Wolfgang-Aid, non-acid juices) are recommended. - Do NOT smoke. - Do take it easy today. You need not stay in bed, but avoid strenuous activities such as jogging or working out. FOLLOW UP & RECOMMENDATIONS: -Notify the doctor if you have any problems. -Follow up pathology - Start omeprazole 40 mg twice daily -Stop NSAIDs -Office number [phone].
--- OUTSIDE RECORDS SUMMARY | 2025-06-16 08:04 | XMS_ITS | Encounter Summary ---
Author Organization [facility] Address [address] [place] [address] Care Team Providers Care Admitting Coordinator Name Role Phone Molina De Anda MD Primary Care Provider [phone] Valerie Groves CYLINDER VALVE REPAIRER Unavailable [phone] Karime Dias PMHNP- Unavailable + [phone] Encounter Details DateTypeDepartmentCare Team (Latest Contact Info)Howluaoklcp74/10/2025amboo flowsheet [facility] [address] [place] [address] Angeli-Macarena Santos, SP[facility]OONISTNEV[facility] [address] [facility] [address] [place], [place] [address] Social History Tobacco UseTypesPacks/DayYears UsedDateSmoking Tobacco: Every UycNcacspodpe357.9 Started: 1985Passive Smoke Exposure: PastSmokeless Tobacco: Never [...] times a week08/07/2023How often do you attend jain or yazidi services?Never08/07/2023o you belong to any clubs or organizations such as jain groups, unions, fraternal or athletic groups, or school groups?No08/07/2023How often do you attend meetings of the clubs or organizations you belong to?Patient mkajmybm89/15/2024re you , , , , never , or living with a partner?Eipjtdt1908/07/2023 AUDIT-CAnswerDate RecordedQ1: How often do you have [...] at all 08/07/2023HQ-2AnswerDate RecordedPatient Health Questionnaire-2 Score5 01/22/2025[facility] [place] [facility] Occup[facility] - Occupational Stress QuestionnaireAnswerDate RecordedDo you feel stress - tense, restless, nervous, or anxious, or unable to sleep at night because yourmind is troubled all the time - these days?To some uatalt1208/07/2023Exercise Vital SignAnswerDate Recorded On average, how many [...] InformationValueDate RecordedSex Assigned at BirthNot on fileLegal QfeXporch37/15/2023 7:47 PM EDTGender IdentityNot on fileSexual OrientationNot on filedocumented as of this encounter Plan of Treatment DateTypeDepartmentCare Team (Latest Contact Info)Pfkpciuavox16/03/2025 2:00 PM ESTOffice Visit [facility] [address] [place] [address] Macarena Chang APRN-TRAFFIC ATTENDANT [address] [place] [address] documented as of this encounter Goals GoalPatient [...] Molina De Anda MD [address] [place] [address] PCP - GeneralFamily Medicine02/21/24 Valerie Groves NP Nurse PractitionerFamily Medicine02/21/24 [facility] [address] [place] [address] Nurse PractitionerBristol [facility]01/22/25documented as of this encounter
--- OUTSIDE RECORDS SUMMARY | 2025-06-16 08:04 | XMS_ITS | Encounter Summary ---
Author Organization [facility] Address [address] [place] [address] Care Team Providers Care Contractor General Building Name Role Phone Molina De Anda MD Primary Care Provider [phone] Valerie Groves DIGITAL MEDIA DESIGNER Unavailable [phone] Karime Dias PMHNP- Unavailable + [phone] Encounter Details DateTypeDepartmentCare Team (Latest Contact Info)Bntlmqulrle58/10/2025Travel Social History Tobacco UseTypesPacks/DayYears UsedDateSmoking Tobacco: Every PmbUawkhtthfl487.9 Started: 1985Passive Smoke Exposure: PastSmokeless Tobacco: Never [...] times a week08/07/2023How often do you attend taoism or congregation services?Never08/07/2023o you belong to any clubs or organizations such as taoism groups, unions, fraternal or athletic groups, or school groups?No08/07/2023How often do you attend meetings of the clubs or organizations you belong to?Patient juimarjd92/15/2024re you , , , , never , or living with a partner?Dsrzacr2708/07/2023 AUDIT-CAnswerDate RecordedQ1: How often do you have [...] at all 08/07/2023HQ-2AnswerDate RecordedPatient Health Questionnaire-2 Score5 01/22/2025[facility] [place] of [facility] - Occupational Stress QuestionnaireAnswerDate RecordedDo you feel stress - tense, restless, nervous, or anxious, or unable to sleep at night because yourmind is troubled all the time - these days?To some nxhgqr7008/07/2023Exercise Vital SignAnswerDate Recorded On average, how many [...] InformationValueDate RecordedSex Assigned at BirthNot on fileLegal TslLwplrx72/15/2023 7:47 PM EDTGender IdentityNot on fileSexual OrientationNot on filedocumented as of this encounter Plan of Treatment DateTypeDepartmentCare Team (Latest Contact Info)Iawfkvcqpmf14/03/2025 2:00 PM ESTOffice Visit [facility] [address] [place] [address] Macarena Chang APRN-DINING SERVICES DIRECTOR [address] [place] [address] documented as of this encounter Goals GoalPatient [...] Molina De Anda MD [address] [place] [address] PCP - GeneralFamily Medicine02/21/24 Valerie Groves NP [facility]Fa[facility]02/21/24 Karime Dias KANG- [address] [place] [address] Nurse PractitionerWashington Health System Greene01/22/25documented as of this encounter
--- OUTSIDE RECORDS SUMMARY | 2025-06-16 08:04 | XMS_ITS | Patient Health Record ---
Author Organization [facility] in [place] Address [address] [place] [address] Care Team Providers Care Principal Statistical Scientist Name Role Phone None, Unknown or Primary Care Provider Unavailab Tawana Lee [phone] Allergies Allergen (clinical drug ingredient) Drug/Non Drug Allergy documented on EMR Reaction Allergy Type Onset Date Status PenicillinrashDrug AllergyActive Results Component Value Reference Range Notes XR foot LT min 3V (Not yet r eviewed by provider) Interpretation: Performing Lab: Notes/Report: Source Facility: [place] [address] XRay Report Signed Patient: KALYN RUTHERFORD MR#: [id number] : 1970 Acct:[id number] Age/Sex: 54 / F ADM Date: 09/04/24 Loc: EC Attending Dr: Tawana Hoff D.P.M. Ordering Physician: Tawana Hoff D.P.M. Date of Service: 09/04/24 Procedure(s): XR foot LT min 3V Accession Number(s): [id number] cc: NASH LAMAR Peter D.P.M. [facility] [place] [id number] Patient Name: KALYN RUTHERFORD MRN: [id number] date: 1970 Sex: F Assigned Patient Location: EC Current Patient Location: Accession/Order Number: [id number] Exam Date: 09/04/2024 15:53 Report Date: 09/05/2024 [...] Signed By: 09/05/24 1019 DD/ 1016 TD/TT: [employer] Host: CT FOOT LT WO CON (Not yet r eviewed by provider) Interpretation: Performing Lab: Notes/Report: Source Facility: [place] [address] CT Scan Report Signed Patient: KALYN RUTHERFORD MR#: [id number] : 1970 Acct:[id number] Age/Sex: 54 / F ADM Date: 09/09/24 Loc: CT Attending Dr: Tawana Hoff D.P.M. Ordering Physician: Tawana Hoff D.P.M. Date of Service: 09/09/24 Procedure(s): CT foot LT wo con Accession Number(s): [id number] cc: ANGEL LUIS LAMAR [place] [address] Patient Name: KALYN RUTHERFORD MRN: [id number] date: 1970 Sex: F Assigned Patient Location: CT Current Patient Location: CT Accession/Order Number: [id number] Exam Date: 09/09/2024 15:56 Report Date: 09/09/2024 [...] Signed By: 09/09/24 174 DD/ 173 TD/TT: [employer]: Reason For Referral No Information Medications Medication [...] o steoarthritis of the ankle and/or foot (083238220) Primary osteoarthritis, left ankle and foot (M19.072) ActiveconfirmedProblemGastroesophageal reflux disease (593206727)GERD (gastroesophageal reflux disease) (K21.9)ActiveconfirmedProblemPain in left foot (428787972491053)Left foot pain (M79.672)ActiveconfirmedProblemAnxiety depression (758894483)Anxiety with depression (F41.8)ActiveconfirmedProblemUlcer of big toe (disorder) (069860391)Chronic ulcer of great toe of left foot with fat layer exposed (L97.522)Activeconfirmed Vital Signs Heart Rate 85 /min 09/18/2024 Respiratory Rate16 /min09/18/20247625Riavqbsu21 %09/18/2024 Encounters Encounter Location Date Provider Diagnosis [facility] (PODIATRY) [address] [place], [place] [address] [address] 09/04/2024 Tawana Hoff Pain due to internal orthopedic prosthetic devices, implants and grafts, initial encounter T84.84XA ; Primary osteoarthritis, left ankle and foot M19.072 and Left foot pain M79.672 [facility] (PODIATRY) [address] [place] [address] [place] [address] 09/18/2024 Tawana Hoff 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.0 ; Primary osteoarthritis, left ankle and foot M19.072 and Pain due to internal orthopedic prosthetic devices, implants and grafts, initial encounter T84.84XA [facility] (PODIATRY) [address] [place], [place] [address] [address] 09/04/2024 Tawana Hoff Assessments Encounter Date Diagnosis [...] End Date RANDI MARTHA COURTNEY [address] [place] [address] [id number] Kalyn Rutherford Self - patient is the insured Medical (General) History Medical History History ICD Code GERD (gastroesophageal reflux disease) K 21.9 Anxiety F41.9 Arthritis M19.90 Nicotine dependence F17.200 Bipolar depression F31.9 Overactive bladder N32.81 Peripheral arterial disease I73.9 Surgical History Surgery Date(Month/Year) posterior colporrhaphy repair, enterocel e repair 02/15/2021 gastric bypass 08/2019 tubal ligation cholecystectomy
--- OUTSIDE RECORDS SUMMARY | 2025-06-16 08:04 | XMS_ITS | CCD ---
Author Organization [facility] Care Team Providers Care Integrity Analyst Name Role Phone PHYSICIAN, DEFAULT Admitting Unavailable [...] Attending Unavailable MD Tyson Collazo Attending Provider [phone] Neetu WELLER, Molina Primary Care Provider [phone] [place] EVENT AV OPERATOR, Angel Luis Unavailable [phone] [place] EVENT AV OPERATOR, Angel Luis [facility] [place] [facility] No Pcp, No Pcp Primary Care Provider Unavailpedro Waters [facility], [facility] Unavailable Unavailable Shun Arshad MD Attending Provider [phone] Pascale Arana Primary Care Provider Molina De Anda MD Primary Care Provider Germain EVENT AV OPERATOR, Angel Luis Unavailable [phone] Sumit BAH-FOREIGN LEGAL CONSULTANTPascale Primary Care Provider Sumit EVENT AV OPERATOR-CPsacale Primary Care Provider Shun Arshad MD Other Provider Loc Aguayo MD Attending Provider Sumit EVENT AV OPERATOR-CPascale Attending Provider Shun Arshad Attending Unavailable Shun Arshad Admitting Unavailable Pascale Arana Primary Care Unavailable Clinton Del Toro APRN Attending Provider Meek WELLER, Flores Gutierrez Attending Unavailable Meek WELLER, Jordanrius Gutierrez Attending Unavailable Meek WELLER, Flores Gutierrez Attending Unavailable Sumit BAH-FOREIGN LEGAL CONSULTANTPascale Primary Care Provider JOVON ASIF Attending Unavailable SHELIA MUNIZ Referring Unavailable PASCALE ARANA Primary Care Unavailable JOVON ASIF Attending Unavailable PASCALE ARANA J Referring Unavailable SUMIT, PASCALE J Primary Care Unavailable SHELIA MUNIZ Attending Unavailable NO PCP, NO PCP Primary Care Unavailable ANGEL LUIS GROVES Attending Unavailabl e AICHHOLZ, PASCALE Attending Unavailable AICHHOLZ, PASCALE Attending Unavailable AICHHOLZ, PASCALE Attending Unavailable AICHHOLZ, PASCALE Attending Unavailable DIASEUNICE KINGSLEY Attending Unavailable AICHHOLZ, PASCALE Referring Unavailable EUNICE DIAS Attending Unavailable SUMIT, PASCALE Attending Unavailable ROHAN WATERS Attending Unavailable JT, ROHAN Attending Unavailable DIVYA, EUNICE Attending Unavailable JT, ROHAN Attending Unavailable SHAY FRIAS Attending Unavailab le ANGEL LUIS GROVES Attending Unavailabl e SUMIT, PASCALE Attending Unavailable Shun Arshad MD Attending Provider Sumit EVENT AV OPERATOR-CPascale Primary Care Provider Shun Arshad MD Other Provider Loc Aguayo MD Attending Provider [phone] Sumit CAMARGO-CPascale Attending Provider Clinton Del Toro APRN Attending Provider [phone] Allergies Allergy ClassificationReported Allergen(s)Allergy TypeDate of OnsetReaction(s) Facility (7 sources)penciclovir; Translations: [penciclovir]Drug Wndqdty71-66-0523juxjyOhio[facility] (11 sources)Penicillins; Translations: [PENICILLINS]Drug allergy (disorder) 72-72-6515UjtkzAzh[facility] (20 sources)Penicillin GDrug Gqdfogz74-78-5558KdoofasIIX[facility] (20 sources)PenicillinsPropensity to adverse -[phone] (5 sources)PenicillinsPropensity to adverse reactions to itfa84-87-3800Tyeys [facility] Work Phone: (1 source)PenicillinsDrug allergy (disorder)07-94-9254BecvamshzAd[facility] Medications Current Medications MedicationDrug Class(es)DatesSig (Normalized)Sig (Original)[id number] 200 actuat albuterol 0.09 mg/actuat metered dose inhaler (20 sources)beta2-Adrenergic AgonistStart: 90-72-0551lpkr 1 puff(s) by inhalation every six hours as needed for wheezingStart: 03-25-2025 End: 18-37-2359Brhcvciev Sulfate 90 mcg/actuation HFA aerosol inhaler Discontinued INHALATION March 24, 2025 11:00pm April 01, 2025 10:38am Start: 02-06-2025 End: 96-61-4193qsyo 2 puff(s) by inhalation every six hours as neededalbuterol (PROVENTIL HFA;VENTOLIN HFA) 90 mcg/actuation inhaler Inhale 2 puffs every 6 (six) hours as needed. 02/06/2025 03/08/2025 ActiveStart: 01-14-2025 End: 86-77-9270biow 2 puff(s) by inhalation every six hours for wheezing albuterol HFA 90 mcg/act inhaler Indications: URTI (acute upper respiratory infection) , Non-recurrent acute suppurative otitis media of both ears without spontaneous rupture of tympanic membranes Inhale 2 puffs every 6 (six) hours if needed for wheezing 8 g 1 02/06/2025 ActiveStart: 02-29-2024 End: 14-61-4055rjqy 2 puff(s) by inhalation every four hours for wheezing albuterol HFA 90 mcg/act inhaler Indications: URTI (acute upper respiratory infection) , Non-recurrent acute suppurative otitis media of both ears without spontaneous rupture of tympanic membranes Inhale 2 puffs every 4 (four) hours if needed for wheezing 18 g 12/20/2024 01/14/2025 DiscontinuedARIPiprazole 10 mg oral tablet (2 sources)Atypical AntipsychoticStart: 99-53-2830snls 1 tablet by mouth once dailyaripiprazole 10 mg Tab 10 mg = 1 tab(s), Oral, Daily, Refills(s) 0 Start Date: 05/24/23 Status: OrderedARIPiprazole Activebenzonatate 200 mg oral capsule (2 sources)Non-narcotic AntitussiveStart: 66-29-4204wbyl 1 capsule by mouth three times daily as needed for coughbenzonatate (Tessalon) 200 MG capsule Take 200 mg by mouth 3 (three) times a day as needed for cough 05/26/2025 Active cariprazine 4.5 mg oral capsule (20 sources)Atypical AntipsychoticStart: 04-03-2025 End: 87-53-2102sggy 1 capsule by mouth once dailyStart: 04-01-2025 End: 17-89-1021jzas 1 capsule by mouth once dailyCariprazine HCl (Vraylar) 1.5 MG capsule Indications: Severe episode of recurrent major depressive disorder, without psychotic features (HCC) Take 1 capsule by mouth Daily for 3 days 3 capsule 04/01/2025 04/03/2025 DiscontinuedStart: 02-24-2025 End: 83-12-3545Mywxvggzqml (Vraylar) 3 mg capsule Discontinued MG PO March 24, 2025 11:00pm April 2659:23amStart: 01-22-2025 End: 43-34-1523xgka 1 capsule by mouth once dailyCariprazine HCl (Vraylar) 1.5 MG capsule Indications: Severe episode of recurrent major depressive disorder, without psychotic features (HCC) Take 1.5 mg by mouth Daily 30 capsule 01/22/2025 02/24/2025 Discontinuedcholecalciferol 0.125 mg oral capsule (7 sources)Vitamin DStart: 61-82-6378Icbky: 57-73-9068unar 1 capsule by mouth once dailyCymbalta 30 mg Cap-DR (2 sources)Start: 90-97-9558sety 1 capsule by mouth once dailyCymbalta 30 mg Cap-DR = 1 cap(s), Oral, Daily, Refills(s) 0 Start Date: 05/24/23 Status: Ordered DULoxetine 60 mg delayed release oral capsule (20 sources)Serotonin and Norepinephrine Reuptake InhibitorStart: 03-13-2024 End: 42-33-7477boql 1 capsule by mouth at bedtimeStart: 02-29-2024 End: 94-53-8522dxvo 1 capsule by mouth in the morningStart: 07-03-2023 End: 35-91-9508akmg 1 capsule by mouth in the morningDULoxetine (Cymbalta) [address] capsule Indications: Fibromyalgia Take 1 capsule (60 mg) by mouth inthe morning. 30 capsule 2 07/03/2023 10/01/2023 Activeesomeprazole 40 mg granules for oral suspension (3 sources)Proton Pump InhibitorStart: 05-05-2025 End: 99-14-3994uqze 40 mg by mouth before mealtimeesomeprazole (NexIUM) 40 MG packet Take 40 mg by mouth in the morning. Take before meals. 05/06/2025 Active estradiol 0.1 mg/ml vaginal cream (20 sources)EstrogenStart: 54-40-6008Abalu: 79-05-8300mpakltxtw (Estrace) 0.1 MG/GM vaginal cream Insert 1.5 g into the vagina 2 (two) times a week 02/06/2025 ActiveStart: 04-47-6671zmolkzqdG (ESTRACE) 0.01 % (0.1 mg/gram) vaginal cream Indications: Cystocele with second degree uterine prolapse , History of reconstructive repair of rectocele , Urge urinary incontinence Apply peasized amount ( 1.5 g) to vaginal introitus nightly for 4 weeks then 1-2 times per week thereafte 42.5 g 2 02/06/2025 Activeeszopiclone 1 mg oral tablet (3 sources)Start: 04-10-2024 End: 92-88-9590eslm 1 tablet by mouth at bedtimeeszopiclone (Lunesta) 1 MG tablet Indications: Psychophysiological insomnia Take 1 tablet (1 mg) bymouth at bedtime Take immediately before bedtime 30 tablet 2 04/10/2024 05/27/2024 Discontinued (Ineffective)ferrous sulfate 325 mg oral tablet (2 sources)Start: 84-60-5305qsbj 1 tablet by mouth once dailyferrous sulfate 325 mg Tab 325 mg = 1 tab(s), Oral, Daily, Refills(s) 0 Start Date: 05/24/23 Status: Orderedfluconazole 150 mg oral tablet (1 source)Azole AntifungalStart: 08-14-2023 End: 75-53-4705bvvz 1 tablet by mouth every weekfluconazole (Diflucan) 150 MG tablet Indications: Antibiotic-induced yeast infection Take 1 tablet (150 mg) by mouth 1 (one) time per week for 14 days 2 tablet 0 08/14/2023 08/28/2023 Active fluticasone propionate 0.05 mg/actuat metered dose nasal spray (20 sources)CorticosteroidStart: 37-75-9702Kmqku: 37-48-3700wxrf 2 spray(s) nasal route in the morningfluticasone propionate (FLONASE) 50 mcg/actuation nasal spray Administer 2 sprays into each nostrilin the morning. 11/18/2024 ActiveStart: 08-12-2024 End: 16-87-8705mzpo 2 spray(s) nasal route once dailyfluticasone (Flonase) 50 MCG/ACT nasal spray Indications: Environmental and seasonal allergies Administer 2 sprays into each nostril Daily Shake gently. Before first use, prime pump. After use, cleantip and replace cap. 16 g 5 11/18/2024 Activelactulose 667 mg/ml oral solution (4 sources)Osmotic LaxativeStart: 03-06-2024 End: 15-35-5798udsn 20 g by mouth at bedtimelactulose (Chronulac) 10 GM/15ML solution Indications: Constipation, unspecified constipation type Take 30 mL (20 g) by mouth in the morning and 30 mL (20 g) before bedtime. Do all this for 10 days. 600 mL 03/06/2024 03/16/2024 ActivelamoTRIgine 25 mg oral tablet (20 sources)Mood Stabilizer, Anti-epileptic AgentStart: 06-02-2025 End: 47-77-0643nrvl 1 tablet by mouth once daily, then take 2 tablets by mouth once dailylamoTRIgine (LaMICtal) 25 MG tablet Indications: Severe episode of recurrent major depressive disorder, without psychotic features (HCC) Take 1 tablet (25 mg) by mouth Daily for 14 days, THEN 2 tablets (50 mg) Daily for 14 days. 42 tablet 06/02/2025 06/30/2025 ActiveStart: 01-22-2025 End: 92-15-3797hmqoHOCvlqm (LaMICtal) 25 MG tablet Indications: Bipolar disorder with severe depression (HCC) Take1 tablet (25 mg) by mouth Daily for 7 days 1 pill at bedtime for 7 weeks then stop medication 01/22/2025 02/24/2025 Discontinued (Therapy completed)Start: 01-06-2025 End: 19-65-7461ehqwHLOaozp (LaMICtal) 25 MG tablet Indications: Bipolar disorder with severe depression (HCC) 1 pill at bedtime for 2 weeks, then increase to 1 pill twice a day 60 tablet 01/06/2025 Epsvrf60 hr mirabegron 50 mg extended release oral tablet (6 sources)beta3-Adrenergic AgonistStart: 73-76-7446ibpq 1 tablet by mouth once dailyStart: 53-92-2334yukm 1 tablet by mouth every twenty-four hours [...] tablet (20 sources)Proton Pump InhibitorStart: 11-20-2024 End: 95-16-8535kljh 1 tablet by mouth once dailypantoprazole (ProtoNix) 40 MG EC tablet Indications: Gastroesophageal reflux disease, unspecified whether esophagitis present Take 1 tablet (40 mg) by mouth Daily Do not crush, chew, or split. 90 tablet 11/20/2024 02/26/2025 Discontinued (Ineffective)Start: 02-29-2024 End: 54-14-0430pffk 1 tablet by mouth once dailypantoprazole (ProtoNix) 40 MG EC tablet Indications: Gastro-esophageal reflux disease without esophagitis Take 1 tablet (40 mg) by mouth Daily 90 tablet 02/29/2024 08/12/2024 Discontinued (Therapy completed)pregabalin (1 source)Pregabalin Activesucralfate 1000 mg oral tablet (20 sources)Aluminum ComplexStart: 66-31-3440ojuf 1 tablet by mouth in the morningsucralfate (Carafate) 1 g tablet Take 1 g by mouth in the morning and 1 g in the evening. Take before meals. 04/30/2025 ActiveStart: 47-28-7901ouzm 1 tablet by mouth once before mealtimeStart: 02-26-2024 End: 90-79-4372yell 1 tablet by mouth every six hours as neededsucralfate (Carafate) 1 g tablet Take 1 g by mouth every 6 (six) hours if needed 02/26/2024 08/12/2024 Discontinued (Therapy completed)sulfamethoxazole 800 mg / trimethoprim 160 mg oral tablet (11 sources)Dihydrofolate Reductase Inhibitor Antibacterial, Sulfonamide AntimicrobialStart: 11-14-2024 End: 29-51-0913uzhw 1 tablet by mouth every twelve hours for urinary tract infection and urinary tract infectionsulfamethoxazole-trimethoprim (Bactrim DS) 800-160 MG per tablet Indications: UTI (urinary tract infection), uncomplicated Take 1 tablet by mouth every 12 (twelve) hours for 7 days 14 tablet 11/14/2024 11/21/2024 ActiveSyringe 22G X 3/4 3 ML misc (1 source)Start: 08-14-2023 End: 29-15-0929Sndmyro 22G X 3/4 3 ML misc Indications: B12 deficiency 1 each every 7 (seven) days 4 each 0 08/14/2023 09/13/2023 Activevitamin b12 1 mg oral tablet (20 sources)Vitamin T50Llybk: 35-86-6254pblz 1 tablet by mouth once dailyStart: 13-81-6688llkrik 1000 ug by intramuscular injection every week, then inject 1000 ug by intramuscular injection every monthCyanocobalamin (B-12 Compliance Injection) 1000 MCG/ML kit Indications: B12 deficiency 1000 mcg injection IM injections once weekly for 4 weeks, then 1000 mcg IM injection once a month 6 kit 0 08/04/2023 ActiveStart: 07-04-2023 End: 69-55-1216wqmt 1 tablet by mouth in the morningcyanocobalamin (Vitamin B- 12) 1000 MCG tablet Indications: B12 deficiency Take 1 tablet (1,000 mcg)by mouth in the morning. 30 tablet 2 07/04/2023 10/02/2023 Activezolpidem tartrate 10 mg oral tablet (20 sources)gamma-Aminobutyric Acid-ergic AgonistStart: 69-87-6266rjwd 1 tablet by mouth at bedtime as needed for sleepStart: 07-29-2024 End: 57-66-4022syfowdep (Ambien) 10 MG tablet Indications: Psychophysiological insomnia Take 1 tablet (10 mg) by mouth as needed at bedtime for sleep 30 tablet 2 02/20/2025 ActiveStart: 02-29-2024 End: 81-01-5371scbdncqm (Ambien) 10 MG tablet Indications: Psychophysiological insomnia Take 1 tablet (10 mg) by mouth as needed at bedtime for sleep 30 tablet 06/25/2024 07/25/2024 Discontinued (Reorder)Start: 07-04-2023 End: 74-43-5263affgclrm (Ambien) 10 MG tablet Indications: Psychophysiological insomnia Take 1 tablet (10 mg) by mouth as needed at bedtime for sleep 30 tablet 2 07/04/2023 10/02/2023 Active Completed/Discontinued Medications MedicationDrug Class(es)DatesSig (Normalized)Sig (Original)azithromycin 250 mg oral tablet (8 sources)Macrolide AntimicrobialStart: 08-12-2024 End: 87-30-8676rsoiajeyvabs (Zithromax) 250 MG tablet Indications: Acute non- recurrent maxillary sinusitis 2 pillsday #1, 1 pill day #2-#5 6 tablet 08/12/2024 09/04/2024 Discontinuedcitalopram 40 mg oral tablet (20 sources)Serotonin Reuptake InhibitorStart: 02-29-2024 End: 10-55-0479sduo 1 tablet by mouth in the morningcitalopram (CeleXA) 40 MG tablet Indications: Bipolar disorder with severe depression (HCC) Take 1 tablet (40 mg) by mouth in the morning. 90 tablet 1 11/20/2024 01/06/2025 Discontinued (Therapy completed)Start: 08-14-2023 End: 87-96-9159rmbv 1 tablet by mouth in the morningcitalopram (CeleXA) 40 MG tablet Indications: Bipolar disorder with severe depression (CMS/HCC) Take 1 tablet (40 mg) by mouth in the morning. 90 tablet 0 08/28/2023 11/26/2023 Active Citalopram Hydrobromide Activecyclobenzaprine hydrochloride 10 mg oral tablet (20 sources)Muscle RelaxantStart: 01-20-2025 End: 77-05-8167Fsdohmitrcaxhnl 10 mg tablet Discontinued MG PO March 24, 2025 11:00pm April 26, 2025 9:25amfexofenadine hydrochloride 180 mg oral tablet (20 sources)Histamine-1 Receptor AntagonistStart: 02-29-2024 End: 31-74-5651Fjrzfvrqfawc 180 mg tablet Discontinued MG PO March 24, 2025 11:00pm April 07, 2025 7:37pmStart: 84-49-8936pirf 1 tablet by mouth once dailyAllegra D OTC 24HR 1 tab(s), Oral, Daily, Refill(s) 0 Start Date: 06/07/23 Status: Orderedtake 1 tablet by mouth in the morningfexofenadine (Layla Allergy) 180 MG tablet Take 180 mg by mouth in the morning. 0 Activegabapentin 300 mg oral capsule (20 sources)Anti-epileptic AgentStart: 11-18-2024 End: 38-87-1920Lxxbjatiwx 300 mg capsule Discontinued MG PO March 24, 2025 11:00pm April 26, 2025 9:25amStart: 06-11-2024 End: 27-24-9076htdb 1 capsule by mouth in the morning, [...] mg oral tablet (20 sources)Start: 02-26-2024 End: 24-16-6695rbrj 1 tablet by mouth every six hours as neededhyoscyamine (Anaspaz,Levsin) 0.125 MG tablet Take 0.125 mg by mouth every 6 (six) hours if needed 02/26/2024 08/12/2024 Discontinued (Therapy completed)lansoprazole 30 mg delayed release oral capsule (20 sources)Proton Pump InhibitorStart: 12-21-2024 End: 67-03-0997dchgvkbrrxvc (Prevacid) [address] capsule Take 15 mg by mouth in the morning. Take before meals. 12/21/2024 01/06/2025 Discontinued (Therapy completed)Start: 05-24-2023 End: 69-37-3916Ljzcrmiydpmi 30 mg capsule,delayed release(DR/EC) Discontinued MG PO March 24, 2025 11:00pm May 26, 2025 1:39pmLansoprazole Active magnesium citrate 58.2 mg/ml oral solution (20 sources)Start: 02-26-2024 End: 99-42-3117xvjk 296 mL by mouth once dailyCVS Magnesium Citrate oral solution Take 296 mL by mouth Daily 02/26/2024 08/12/2024 Discontinued (Therapy completed)meloxicam 15 mg oral tablet (20 sources)Nonsteroidal Anti-inflammatory DrugStart: 10-02-2024 End: 44-15-4944Oyikmpfyb 15 mg tablet Discontinued MG PO March 24, 2025 11:00pm May 26, 2025 1:39pmMeloxicam Activeondansetron 4 mg disintegrating oral tablet (20 sources)Serotonin-3 Receptor AntagonistStart: 02-26-2024 End: 68-62-8707abyp 1 tablet by mouth every four hours as needed for nausea ondansetron ODT (Zofran-ODT) 4 MG disintegrating tablet Take 4 mg by mouth every 4 (four) hours if needed for nausea 02/26/2024 08/12/2024 Discontinued (Therapy completed)24 hr oxybutynin chloride 10 mg extended release oral tablet (20 sources)Cholinergic Muscarinic Antagonist End: 78-31-9043iuco 1 tablet by mouth every twenty-four hours in the morning oxybutynin XL (Ditropan XL) 10 MG 24 hr tablet Take 10 mg by mouth in the morning. 08/12/2024 Discontinued (Therapy completed)phentermine hydrochloride 37.5 mg oral tablet (20 sources)Sympathomimetic Amine AnorecticStart: 07-31-2024 End: 37-61-6805urch 1 tablet by mouth before mealtimephentermine (Adipex-P) 37.5 MG tablet Indications: BMI 32.0-32.9,adult , Class 1 obesity due to excess calories without serious comorbidity in adult, unspecified BMI Take 1 tablet (37.5 mg) by mouth in the morning. Take before meals. 30 tablet 11/20/2024 01/06/2025 Discontinued (Therapy completed)polyethylene glycol 3350 56770 mg powder for oral solution (9 sources)Osmotic LaxativeStart: 02-28-2024 End: 44-18-5167bsbixwxqlbyr glycol, PEG, 3350 (MiraLax) 17 GM/SCOOP powder Indications: Constipation, unspecified constipation type Take 17 g by mouth Daily 578 g 2 02/28/2024 06/09/2024 Expiredsod sulf-pot chloride-mag sulf 1.479-0.188- 0.225 gram tablet (3 sources)Start: 02-13-2023 End: 73-18-9470odm sulf-pot chloride-mag sulf 1.479-0.188- 0.225 gram tablet See instructional sheet given by office. Patient was given a [employer] coupon voucher to use, this is not to be ran through patients insurance. 24 tablet 02/13/2023 2025 DiscontinuedStart: 47-02-4984lem sulf-pot chloride-mag sulf 1.479-0.188- 0.225 gram tablet See instructional sheet given by office. Patient was given a [employer] coupon voucher to use, this is not to be ran through patients insurance. 24 tablet 02/13/2023 Fvllpv46 hr tolterodine tartrate 4 mg extended release oral capsule (20 sources)Cholinergic Muscarinic AntagonistStart: 12-21-2024 End: 62-87-1715tmjk 1 capsule by mouth every twenty-four hoursTolterodine 4 mg capsule,extended release 24hr Discontinued MG PO March 24, 2025 11:00pm May 05, 2025 1:25pmStart: 05-24-2023 End: 71-02-1990bcsz 1 capsule by mouth once dailytolterodine LA (Detrol LA) 4 MG 24 hr capsule Take 4 mg by mouth Daily 12/21/2024 06/02/2025 Discontinued Tolterodine Tartrate ER Active Problems Active Problems Problem ClassificationProblemDateDocumented DateEpisodic/ChronicAnxiety disorders (20 sources)Anxiety; Translations: [Generalized anxiety disorder]Onset: 588860-16-7245TgolethGclvtnt dysrhythmias (2 sources)Palpitations; Translations: [Palpitations]Onset: 78-87-6654Qelsbreh Deficiency and other anemia (10 sources)Iron deficiency anemia secondary to inadequate dietary iron intake; Translations: [Other iron deficiency anemias]37-80-6502MpebjgfvQmzwapbumk disorders (20 sources)Gastroesophageal reflux disease; Translations: [Gastro-esophageal reflux disease without esophagitis]Onset: 953434-04-5161TrpmksmQhvnctujdj disorders (1 source)Esophageal disordersGenitourinary symptoms and ill-defined conditions (8 sources)Urge incontinence of urine; Translations: [Urge incontinence]Onset: 060808-59-6670UjswzzmZtbfylkzdntiq symptoms and ill-defined conditions (1 source)Incomplete emptying of bladder; Translations: [Retention of urine, unspecified]01-51-4964UfizcvcdGwdnbsqi; including migraine (20 sources)Menstrual status migrainosus; Translations: [Menstrual migraine, not intractable, with status migrainosus]Onset: hronic Menopausal disorders (20 sources)Menopausal flushing; Translations: [Menopausal and female climacteric states]Onset: 400453-60-5366CtmbnqaJjdpmutqakywl mental health disorders (20 sources)Psychophysiologic insomnia; Translations: [Psychophysiologic insomnia]Onset: 318287-66-1665BluwauyMnrr disorders (20 sources)Bipolar disorder; Translations: [Bipolar affective disorder, current episode depression]Onset: 07-04-2023 Resolved: 746585-93-5394AnkflugHpffeoahdxzwhp (5 sources)Primary osteoarthritis, left ankle and foot; Translations: [PRIMARY OSTEOARTHRITIS LT ANK FOOT]Onset: 04-35-1440OezlvgxBnjfl acquired deformities (1 source)Contracture, left ankle; Translations: [CONTRACTURE LEFT ANKLE]Onset: 63-23-3676KgmhusmTaqmm aftercare (1 source)Other snf (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; Translations: [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 DRUG THERAPY]Onset: 78-94-7702KjmowxesQjltc connective tissue disease (4 sources)Pain in left foot; Translations: [PAIN IN LEFT FOOT]Onset: 05-31-2022 EpisodicOther diseases of bladder and urethra (20 sources)Overactive bladder; Translations: [Overactive bladder]Onset: 11-13-2023 Resolved: 919216-96-7089AmdiksbKcsfr diseases of bladder and urethra (20 sources)Detrusor overactivity; Translations: [Overactive bladder]Onset: 323200-05-6747CtojzvuTqdph diseases of bladder and urethra (20 sources)Overactive bladder due to prolapse of female genital organ; Translations: [Overactive bladder]Onset: 288499-27-9497VbmauljJebnu gastrointestinal disorders (2 sources)Bariatric surgery status; Translations: [BARIATRIC SURGERY STATUS] Onset: 40-37-3477RupjzvxdLbysh gastrointestinal disorders (1 source)Constipation, unspecified; Translations: [Constipation, unspecified] Onset: 23-54-3557OpgmchmxDgfgg gastrointestinal disorders (4 sources)Abdominal bloating; Translations: [Abdominal distension (gaseous)] 97-73-8482AanlmxdpVjuwn lower respiratory disease (2 sources)Other forms of dyspnea; Translations: [Other forms of dyspnea]Onset: 03-74-5967NafldlwuPwjhx lower respiratory disease (4 sources)Dyspnea; Translations: [Shortness of breath]35-95-1052ScbanwntXgxhd nervous system disorders (8 sources)Carpal tunnel syndrome of right wrist; Translations: [Carpal tunnel syndrome, right upper limb]98-88-1110JnvngfwMbfht nervous system disorders (8 sources)Right-sided piriformis syndrome; Translations: [Lesion of sciatic nerve, right lower limb]83-35-7368XjlxxchVfonz nervous system disorders (1 source)Carpal tunnel syndrome, right upper limb; Translations: [Carpal tunnel syndrome, right upper limb]Onset: 24-24-7508HqugonhAqchr non-traumatic joint disorders (1 source)Osteophyte, left foot; Translations: [OSTEOPHYTE LEFT FOOT]Onset: 81-79-3744QrevquzmSxavu nutritional; endocrine; and metabolic disorders (2 sources)Obesity, unspecified; Translations: [Obesity, unspecified]Onset: 29-39-1484MqoramiFgkwc nutritional; endocrine; and metabolic disorders (20 sources)Body mass index 30+ - obesity; Translations: [Body mass index (BMI) 34.0-34.9, adult]Onset: 07-31-2024 Resolved: 18-49-325648742367-22-1687UdxuuhfQaegb nutritional; endocrine; and metabolic disorders (2 sources)Aaqxvpn99-81-9469JpuzhcnVtott nutritional; endocrine; and metabolic disorders (20 sources)Obesity caused by energy imbalance; Translations: [Class 1 obesity due to excess calories without serious comorbidity in adult, unspecified BMI] Onset: 890035-97-0079JoqkthbVglme upper respiratory disease (20 sources)Allergic disposition; Translations: [Other allergic rhinitis]Onset: 826049-90-9713WosszwoZmhzt upper respiratory disease (2 sources)Seasonal allergy; Translations: [Other seasonal allergic rhinitis] 46-43-2743CufosgdIcdajrxinf and visceral atherosclerosis (3 sources)Peripheral vascular disease, unspecified; Translations: [Peripheral vascular disease]Onset: 095651-08-0861OtgxpfoOnuksufy of female genital organs (20 sources)Disorder of rectum; Translations: [Rectocele]Onset: 06-30-2023 41-72-2520UihqbwqJdconetl codes; unclassified (20 sources)Sleep apnea; Translations: [Sleep apnea, unspecified]Onset: 054007-53-9454TwivmemXwbunlum codes; unclassified (1 source)Acquired absence of other specified parts of digestive tract; Translations: [ACQ ABSENCE OTH PART DIGESTV TRACT]Onset: 09-74-2876Qyvjffus Residual codes; unclassified (2 sources)Localized edema; Translations: [Localized edema]Onset: 02-08-2023 EpisodicResidual codes; unclassified (1 source)Other specified postprocedural states; Translations: [Other specified postprocedural states]Onset: 94-28-1706WuspknoiKiyfslgxm-related disorders (20 sources)Nicotine dependence, cigarettes, uncomplicated; Translations: [Nicotine dependence, unspecified, uncomplicated]Onset: 03-22-2022 Resolved: 47-23-2997VolpuwpBldzglsrvyrx (4 sources)CONTACT W/AND (SUSP) EXPOS COVID-19; Translations: [CONTACT W/AND (SUSP) EXPOS COVID-19]Onset: 74-37-5673Mezigouanpjp (2 sources)History of bypass of -63-2689Weauyotosycg (20 sources)Patient on antidepressant monitoring planOnset: Unclassified (1 source)ProcedureOnset: 23-66-2655Cngoztkhxjgm (1 source)New PatientOnset: 02-06-2025 Past or Other Problems Problem ClassificationProblemDateDocumented DateEpisodic/ChronicAbdominal pain (20 sources)Left upper quadrant pain; Translations: [Left upper quadrant pain] Onset: 39-42-2430EmbhpmwtFclqeoufqv disorders (20 sources)Stress and adjustment reaction; Translations: [Reaction to severe stress, unspecified]Onset: 03-18-2024 Resolved: 46-45-6882SgrvjifZilnfbaczcqnjv/social admission (20 sources)Stress; Translations: [Finding relating to psychosocial functioning] Onset: 08-12-2024 Resolved: 644904-80-3459WhvjzzifYfithqimad and other anemia (20 sources)Iron deficiency anemia; Translations: [Iron deficiency anemia, unspecified]Onset: 32-83-7241MgrkfftmIwisfcau; convulsions (20 sources)Neurological finding; Translations: [Unspecified convulsions]Onset: 01-22-2024 Resolved: 157214-76-7956QjfddfedBfwadtokmcmmh and screening for infectious disease (1 source)Contact with and (suspected) exposure to other viral communicable diseasesOnset: 08-30-2021 Resolved: 76-23-3865SnqxvxjtUvzfndf and fatigue (20 sources)Malaise and fatigue; Translations: [Other malaise]Onset: 08-12-2024 62-11-0905AjwufcfpIqxppswye disorders (20 sources)Menorrhagia; Translations: [Excessive and frequent menstruation with regular cycle]Onset: 06-30-2023 Resolved: 626857-97-2671JjtjrwyMnkj disorders (20 sources)Mood disordersOnset: 08-03-2023 Resolved: 507872-48-2841Rizkldh (20 sources)Opportunistic mycosis; Translations: [Candidiasis, unspecified] Onset: 230264-91-1580OjcmzcvyQmpphfwipax deficiencies (20 sources)Cobalamin deficiency; Translations: [Deficiency of other specified B group vitamins]Onset: 391774-36-7159ObszsiuiVhhop circulatory disease (1 source)Other specified symptoms and signs involving the circulatory and respiratory systems; Translations:[OTH SPEC SX SIGNS INVLV CIRC RS]Onset: 59-43-2701QfumswqpQnwiw connective tissue disease (20 sources)Fibromyalgia; Translations: [Fibromyalgia]Onset: 07-04-2023 42-63-2235MynsxhomQzyye connective tissue disease (20 sources)Plantar fasciitis of right foot; Translations: [Plantar fascial fibromatosis]Onset: 618103-02-7625XqsmfrwdSkzuz female genital disorders (20 sources)Female genital organ symptoms; Translations: [Unspecified condition associated with female genital organs and menstrual cycle]Onset: 08-12-2024 Resolved: 406248-02-6693YqhkmhlpCkbnb gastrointestinal disorders (20 sources)History of bypass of stomach; Translations: [Bariatric surgery status]Onset: 194376-04-3181RdaocxzfRuzdp gastrointestinal disorders (20 sources)Constipation; Translations: [Constipation, unspecified]Onset: 341157-40-0917GdjqvhyoGphrw gastrointestinal disorders (20 sources)History of gastrointestinal bleed; Translations: [Personal history of other diseases of the digestive system]Onset: 069012-83-7819Ycminfrh Other screening for suspected conditions (not mental disorders or infectious disease) (20 sources)Abnormal electrocardiogram [ECG] [EKG]; Translations: [Patient encounter status]Onset: 02-08-2023 Resolved: 53-49-7026WwxcwzisIejyb upper respiratory infections (20 sources)Acute upper respiratory infection, unspecified; Translations: [Acute upper respiratory infection]Onset: 08-30-2021 Resolved: 12-85-0833ZinkelvpQlxyhc media and related conditions (20 sources)Acute suppurative otitis media without spontaneous rupture of ear drum; Translations: [Acute suppurative otitis media without spontaneous rupture of ear drum, bilateral]Onset: 01-08-2024 Resolved: 144758-51-7933TnuzcuvkJwewbmvk codes; unclassified (20 sources)Insomnia; Translations: [Insomnia, unspecified]Onset: 07-04-2023 44-12-2516DpnslbpvMwcw and subcutaneous tissue infections (20 sources)Abscess of groin; Translations: [Cutaneous abscess of groin]Onset: 08-15-2023 Resolved: 041581-53-9497QvnjcoloNjqktdqditi; intervertebral disc disorders; other back problems (20 sources)Lumbosacral stenosis; Translations: [Spinal stenosis, lumbosacral region]Onset: 691453-80-8480KvkailbuMaqnqftlxrpl (1 source)CONTACT W/AND (SUSP) EXPOS COVID-19; Translations: [CONTACT W/AND (SUSP) EXPOS COVID-19]Onset: 57-17-2718Jpqbevsjtozd (20 sources)Smoker; Translations: [Smoking]Onset: 08-12-2024 Resolved: 037349-41-9706Snpvmfz tract infections (20 sources)Urinary tract infectious disease; Translations: [Urinary tract infection, site not specified]Onset: 11-14-2024 Resolved: 995485-91-5459Sqmzclpc Results Test NameValueInterpretationReference RangeFacilityMeasure post void residualon 09-49-4100Rgekzm96 mlKettering Health Hamilton SystemKettering Health Hamilton SystemPOCT urinalysis dipstick onlyon 42-88-5185Lbydwsqzjr (U)CLEARKettering Health Hamilton System External Poct Urine BloodNegativeKettering Health Hamilton SystemExternal Poct Urine ColorYELLOWUniversity Hospitals Portage Medical Centerca [facility] SystemExternal Poct Urine GlucoseNegativeUniversity Hospitals Port[facility] Medical Centerca [facility] SystemExternal Poct Urine KetonesNegativeUniversity Hospitals Port[facility] Medical Centerca [facility] SystemExternal Poct Urine Leukocyte EsteraseNegativeKettering Health Hamilton SystemExternal Poct Urine NitriteNegativeKettering Health Hamilton SystemExternal Poct Urine Rr1XerCozlagKettering Health Greene Memorial SystemExternal Poct Urine ProteinNegativeKettering Health Hamilton SystemKettering Health Hamilton SystemBasophils Auto (Bld) [#/Vol]Ordered By: Pascale Arana on 05-05-2025 Basophils (Bld) [#/Vol]0.1 10 3/uL0.0-0.1[facility] Basophils/100 WBC Auto (Bld)Ordered By: Pascale Arana on 52-21-8022Mhqualjkq/100 WBC (Bld)1.1 %0.2-2.0[facility] CenterCholesterol in LDL Calc [Mass/Vol]Ordered By: Pascale Arana on 66-09-2533Pgznuwiwqty in LDL [Mass/Vol] 52.2 mg/dLAdams County Regional Medical CenterComment on above:<100 mg/dl RFSQMYX198-692 mg/dl NEAR OR ABOVE GBDYCEH606-001 mg/dl BORDERLINE JDVT050-922 mg/dl HIGH>190 mg/dl VERY HIGHCholesterol in VLDL Calc [Mass/Vol]Ordered By: Pascale Arana on 48-40-2617Ktbdtwjsflo in VLDL [Mass/Vol]12.8 mg/dLAdams County Regional Medical CenterEosinophils/100 WBC Auto (Bld)Ordered By: Pascale Arana on 01-51-3145Pqmbiqbzwbv/100 WBC (Bld)6.2 %0.9-7.0[facility] CenterErythrocyte distribution width Auto (RBC) [Ratio]Ordered By: Pascale Arana on 39-63-8407Fedegacfzbc distribution width (RBC) [Ratio]12.6 %11.0-15.0 [facility] CenterGlobulin Calc (S) [Mass/Vol]Ordered By: Pascale Arana on 31-35-0228Rgiytxlp (S) [Mass/Vol]3.0 g/dLAdams County Regional Medical CenterGlomerular filtration rate (GFR) estimation in non- AmericanOrdered By: Pascale Arana on 48-02-2654KEJ/1.73 sq M.predicted among non-blacks MDRD (S/P/Bld) [Vol rate/Area]mL/min/{1.73_m2}>=60 mL/min/1.73m 2FVan Wert County HospitalHematocrit Auto (Bld) [Volume fraction]Ordered By: Pascale Arana on 73-75-4005Boevujzbzu (Bld) [Volume fraction]40.7 %36.0-48.0[facility] CenterHemoglobin [Mass/volume] in BloodOrdered By: Pascaleeric Arana on 71-49-2273Ocloeybhph (Bld) [Mass/Vol]13.6 g/dL12.0-16.0[facility] CenterIron binding capacity [Mass/volume] in Serum or PlasmaOrdered By: Pascale Sumit on 37-00-9452Flux binding capacity [Mass/Vol]303.0 ug/dL 250.0-450.0[facility] CenterIron saturation [Mass Fraction] in Serum or PlasmaOrdered By: Pascale Arana on 30-50-5637Hxxw saturation [Mass fraction]27.4 %[facility] CenterLaboratory - Chemistry and Chemistry - challengeOrdered By: Pascale Sumit on 93-82-1098Eybqedc [Mass/Vol] 3.6 g/dL3.4-5.0[facility] CenterALP [Catalytic activity/Vol]95 U/C90-363JdjmzleveAdams County Regional Medical CenterALT [Catalytic activity/Vol]25 U/L 14-59[facility] CenterAST [Catalytic activity/Vol]23 U/L15-37 [facility] CenterBilirubin [Mass/Vol]0.3 mg/dL0.2-1.0[facility] CenterCalcium [Mass/Vol]8.7 mg/dL8.5-10.1FVan Wert County HospitalChloride [Moles/Vol]105 mmol/N47-598SedzdxoifAdams County Regional Medical CenterCholesterol [Mass/Vol]116 mg/dL<=200[facility] Cholesterol in HDL [Mass/Vol]51 mg/nL59-51QihpkxqfvAdams County Regional Medical Center Comment on above:> or =60 mg/dl - LOW CARDIOVASCULAR RISK<40 mg/dl - HIGH CARDIOVASCULAR RISKCO2 [Moles/Vol]29.9 mmol/L21.0-32.0[facility] CenterCreatinine [Mass/Vol]0.62 mg/dL0.55-1.02[facility] Ferritin [Mass/Vol]30.0 ng/mL8.0-252.0[facility] CenterGFR/1.73 sq M.predicted MDRD (S/P/Bld) [Vol rate/Area]mL/min/{1.73_m2}>=60 mL/min/1.73m 2 [facility] CenterGlucose [Mass/Vol]77 mg/bJ00-912JwatjqtavAdams County Regional Medical CenterIron [Mass/Vol]83.0 ug/dL50.0-170.0[facility] CenterPotassium [Moles/Vol]4.0 mmol/L3.5-5.1FVan Wert County HospitalProtein [Mass/Vol]6.6 g/dL6.4-8.2FFort Hamilton Hospitalodium [Moles/Vol]144 mmol/Q223-421DsmkqsipfAdams County Regional Medical CenterTransferrin [Mass/Vol]251 mg/sF485-268RwipbylxhAdams County Regional Medical CenterComment on above: Performed at: [employer] [facility] [id number] Director: Hector Franco PhD, Phone: [phone] [Mass/Vol]64 mg/dL<=150[facility] CenterUrea nitrogen [Mass/Vol]16.0 mg/dL 7.0-18.0[facility] CenterUrea nitrogen/Creatinine [Mass ratio] 25.8 mg/mgAdams County Regional Medical CenterBilirubin Ql (U)NegativeNEGATIVE [facility] CenterGlucose (U) [Mass/Vol]NegativeNEGATIVEAdams County Regional Medical CenterKetones Ql (U)NegativeNEGATIVEAdams County Regional Medical CenterpH (U)6.0 [pH]5.0-9.0[facility] Hospitalpecific gravity (U) [Rel density]<=1.325Stgvkufp1.005-1.025[facility] Urobilinogen Qn (U)0.2 {Genie'U}/dL0.2-1.0[facility] Laboratory - Hematology and Cell countsOrdered By: Pascale Arana on 05-05-2025 Immature granulocytes/100 WBC (Bld)0.1 %0.0-0.5FVan Wert County Hospital Laboratory - Specimen informationOrdered By: Pascale Arana on 05-05-2025 Appearance (U)CLEARCLEARFVan Wert County HospitalColor (U)LT. YELLOW YELLOWAdams County Regional Medical CenterLaboratory - UrinalysisOrdered By: Pascale Arana on 90-55-9221Dkfhiuxnc esterase Test strip Ql (U)NegativeNEGATIVE [facility] CenterMucus Ql (Urine sed)NONE SEENNONE SEENAdams County Regional Medical CenterNitrite Ql (U)NegativeNEGATIVEAdams County [facility] Medical CenterProtein Ql (U)NegativeNEG/TRACEAdams County Regional Medical CenterLeukocytes [#/volume] corrected for nucleated erythrocytes in Blood by Automated coun Ordered By: Pascale Arana on 82-47-1153ZNM corrected for nucl RBC Auto (Bld) [#/Vol]7.0 10 3/uL4.0-11.0[facility] CenterLymphocytes Auto (Bld) [#/Vol]Ordered By: Pascale Arana on 75-40-4101Huojnnmmdgo (Bld) [#/Vol]2.7 10 3/uL1.2-3.8[facility] CenterLymphocytes/100 WBC Auto (Bld) Ordered By: Pascale Arana on 02-84-9508Lotutvcrqkf/100 WBC (Bld)39.2 %20.5-60.0 [facility] Auto (RBC) [Entitic mass]Ordered By: Pascale Arana on 86-32-1515PKG (RBC) [Entitic mass]32.2 pg26.7-34.0[facility] CenterMCHC Auto (RBC) [Mass/Vol]Ordered By: Pascale Arana on 05-05-2025 MCHC (RBC) [Mass/Vol]33.4 g/dL29.9-35.2FVan Wert County HospitalMCV Auto (RBC) [Entitic vol]Ordered By: Pascale Arana on 61-28-3565WCI (RBC) [Entitic vol]96.4 fL81.0-99.0[facility] CenterMonocytes Auto (Bld) [#/Vol]Ordered By: Pascale Arana on 66-39-0158Rvzgzggsm (Bld) [#/Vol]0.4 10 3/uL 0.3-0.8[facility] CenterMonocytes/100 WBC Auto (Bld)Ordered By: Pascale Sumit on 88-80-3954Ittwhlymh/100 WBC (Bld)5.2 %1.7-12.0[facility] CenterNeutrophils Auto (Bld) [#/Vol]Ordered By: Pascale Sumit on 57-46-9930Qbkqevgecxv (Bld) [#/Vol]3.4 10 3/uL1.4-6.5FVan Wert County HospitalNeutrophils/100 WBC Auto (Bld)Ordered By: Pascaleeric Arana on 73-90-1078Aizpavttaeo/100 WBC (Bld)48.2 %43.0-75.0[facility] CenterNo Panel InformationOrdered By: Pascaleeric Arana on 251033-Dteocsm Vitamin D Total69.7 ng/mLAdams County Regional Medical CenterComment on above:<20 ng/mL Vit D oambwswop48-<30 ng/mL Vit D oxiczndhmwfo37-991 ng/mL Vit D sufficient>100 ng/mL Potential ToxicityEosinophils # (Auto)0.4 10 3/uL0.0-0.7 [facility] CenterImmature Granulocyte # (Auto)0.01 10 3/uL 0.00-0.03[facility] CenterVitamin B12 Level>2000 pg/mLAbnormal 232-7153[facility] CenterComment on above:Performed at: - Lab[address] [id number] Director: Hector Franco PhD, Phone: [phone] BacteriaTRACE #/HPFAbnormalNONE SEEN [facility] CenterUrine Occult BloodNegativeNEGATIVEAdams County Regional Medical CenterUrine Other CastsNONE SEEN #/LPFNONE SEENAdams County Regional Medical CenterUrine Other CrystalsNone Seen #/HPFNone SeenAdams County Regional Medical CenterUrine RBCNONE SEEN #/HPF0-2FVan Wert County HospitalUrine Squamous Epithelial CellsFEW #/LPFAbnormalNONE/RAREAdams County Regional Medical CenterUrine WBCNONE SEEN #/HPFNONE SEENAdams County Regional Medical CenterPlatelet mean volume Auto (Bld) [Entitic vol]Ordered By: Pascale Arana on 63-73-8173Vqmbqufm mean volume (Bld) [Entitic vol]9.7 fL9.5-13.5 [facility] CenterPlatelets Auto (Bld) [#/Vol]Ordered By: Pascale Arana on 77-15-5680Azcmzsmwm (Bld) [#/Vol]252 10 3/yV982-934JyygwkocgAdams County Regional Medical CenterRBC Auto (Bld) [#/Vol]Ordered By: Pascale Arana on 14-31-5789PJH (Bld) [#/Vol]4.22 10 6/uL4.20-5.40[facility] Hospitalerum or plasma albumin/globulin mass ratioOrdered By: Pascale Arana on 39-38-1874Uhpihqq/Globulin [Mass ratio]1.2 {ratio}[facility] Hospitalerum or plasma anion gap determinationOrdered By: Pascale Arana on 28-27-9545Ehhrp gap [Moles/Vol]13.1 mmol/LFFort Hamilton Hospitalerum or plasma total cholesterol/high density lipoprotein (HDL) cholesterol mass rat Ordered By: Pascale Arana on 94-82-1881Vlpzuxxynze.total/Cholesterol in HDL [Mass ratio]2.3 {ratio}[facility] CenterComment on above:3.3 - 4.4 LOW RISK4.4 - 7.1 AVERAGE RISK7.1 - 11.0 MODERATE RISK>11.0 HIGH RISKALL CBC WITH AUTO DIFFon 37-87-6342AXQGTMIEN ABSOLUTE AUTO0.1[facility] Basophils/100 WBC (Bld)1.2 %0.2 - 2.0 %[facility] HealthcareEosinophils/100 WBC (Bld) 7.9 %High0.9 - 7.0 %[facility] HealthcareErythrocyte distribution width (RBC) [Ratio] 15.3 %High11.0 - 15.0 %[facility] HealthcareHematocrit (Bld) [Volume fraction]37.2 % 36.0 - 48.0 %[facility] HealthcareHemoglobin (Bld) [Mass/Vol]11.8 g/dLLow12.0 - 16.0 g/dLNONJ HealthcareIMMATURE GRANULOCYTES ABS AUTO0.02NONJ HealthcareImmature granulocytes/100 WBC (Bld)0.3 %0.0 - 0.5 %NOM HealthcareInterpretation and review of laboratory resultsAbnormalNONJ HealthcareLYMPHOCYTES ABSOLUTE AUTO2.3 [facility] HealthcareLymphocytes/100 WBC (Bld)35.2 %20.5 - 60.0 %[facility] HospitalH (RBC) [Entitic mass]31.1 pg26.7 - 34.0 pgNOCoxHealthHC (RBC) [Mass/Vol] 31.7 g/dL29.9 - 35.2 g/dLNOCoxHealthV (RBC) [Entitic vol]98.2 fL81.0 - 99.0 fLHermann Area District HospitalMONOCYTES ABSOLUTE AUTO0.4NONJ HealthcareMonocytes/100 WBC (Bld)5.5 %1.7 - 12.0 %[facility] HealthcareNEUTROPHILS ABSOLUTE AUTO3.3NOCox [place] Neutrophils/100 WBC (Bld)49.9 %43.0 - 75.0 %[facility] HealthcarePlatelet mean volume (Bld) [Entitic vol]10 fL9.5 - 13.5 fLNOCox BransonTBH EO #0.5[facility] TBH [id number] [facility] RBC3.79LowNOMS [facility] WBC6.6[facility] CLINISYNCNONJ HealthcareSEGMENTAL BLOOD PRESSUREon 96-11-9549Gea[place] [address] Cardiology Report Signed Patient: TALIA RUTHERFORD MR#: [id number] : 1970 Acct:[id number] Age/Sex: 54 / F ADM Date: 02/26/25 Loc: CARD Attending Dr: Kajal LAZAR Ordering Physician: Kajal Escobedo Date of Service: 02/26/25 Procedure(s): CA segmental UE or LE PONCE Accession Number(s): [id number] cc: Pascale Arana NP; Kajal Escobedo [facility] Test Date: 2025-02-26 Pat Name: TALIA RUTHERFORD Department: Room: - Gender: Female Science Instructor: Cari Nichole : 1970 Requested By: Kajal Escobedo Order Number: [id number] Reading MD: SCOTT PARKINSON M.D. Interpretive Statements [...] 02/27/25 0907 02/27/25 0907 DD/ 1534 TD/TT: Leather Stitcher:TBHRadiology, Radiologist, MD - 02/27/2025 [place] [address] Cardiology Report Signed Patient: TALIA RUTHERFORD MR#: [id number] : 1970 Acct:[id number] Age/Sex: 54 / F ADM Date: 02/26/25 Loc: CARD Attending Dr: Kajal LAZAR Ordering Physician: Kajal Escobedo Date of Service: 02/26/25 Procedure(s): CA segmental UE or LE PONCE Accession Number(s): [id number] cc: Pascale Arana NP; Kajal Escobedo [facility] Test Date: 2025-02-26 Pat Name: TALIA RUTHERFORD Department: Room: - Gender: Female Science Instructor: Cari Nichole : 1970 Requested By: Kajal Escobedo Order Number: [id number] Reading MD: SCOTT PARKINSON M.D. Interpretive Statements [...] 02/27/25 0907 02/27/25 0907 DD/ 1534 TD/TT: Leather Stitcher: CHERYL MonteroSEENTAL BLOOD PRESSUREOrdered By: Radiologist Radiology on 28-35-7438CLXXHermann Area District Hospital Work Phone: SEGMENTAL BLOOD PRESSUREon 00-68-2930Dhonopsly Study observation (narrative)CHERYL [facility] CenterXR FOOT LT MIN 3Von 73-43-2601P[address] [address] XRay Report Signed Patient: TALIA RUTHERFORD MR#: [id number] : 1970 Acct:[id number] Age/Sex: 54 / F ADM Date: 02/19/25 Loc: RAD Attending Dr: Kajal LAZAR Ordering Physician: Kajal Escobedo Date of Service: 02/19/25 Procedure(s): XR foot LT min 3V Accession Number(s): [id number] cc: Pascale Arana EVENT AV OPERATOR; Kajal Escobedo [address] [address] Patient Name: TALIA RUTHERFORD MRN: [id number] date: 1970 Sex: F Assigned Patient Location: [facility] Current Patient Location: [facility] Accession/Order Number: [id number] Exam Date: 02/19/2025 10:39 Report Date: 02/19/2025 [...] SPURRING. Impression dictated by: Merlin Massey Jr., DHalle 02/19/2025 3:03 PM Dictation Location: [place] [address] Electronically authenticated by: [id number] Y Date: 02/19/2025 15:03 Dictated By: Merlin Massey M.D. Signed By: 02/19/25 1506 DD/ 1503 TD/TT: Leather Stitcher:TBHRadiology, Radiologist, - 02/19/[address] [address] XRay Report Signed Patient: TALIA RUTHERFORD MR#: [id number] : 1970 Acct:[id number] Age/Sex: 54 / F ADM Date: 02/19/25 Loc: KAI Attending Dr: Kajal LAZAR Ordering Physician: Kajal Escobedo Date of Service: 02/19/25 Procedure(s): XR foot LT min 3V Accession Number(s): [id number] cc: Pascale Arana NP; Kajal Escobedo The [address] [address] Patient Name: TALIA RUTHERFORD MRN: [id number] date: 1970 Sex: F Assigned Patient Location: [facility] Current Patient Location: RAD Accession/Order Number: [id number] Exam Date: 02/19/2025 10:39 Report Date: 02/19/2025 [...] Jr. DConsueloOConsuelo 02/19/2025 3:03 PM Dictation Location: [place] [address] Electronically authenticated by: [id number] Y Date: 02/19/2025 15:03 Dictated By: Merlin Massey M.D. Signed By: 02/19/25 1506 DD/ 1503 TD/TT: Leather Stitcher: CHERYL HealthcareRadiology Study observation (narrative)[facility] HealthcareXR FOOT LT MIN 3VOrdered By: Radiologist Radiology on 75-38-1969WH[facility] Work Phone: MR Cervical spine WO contraston 91-88-1600[place] [address] Magnetic Resonance Report Signed Patient: TALIA RUTHERFORD MR#: [id number] : 1970 Acct:[id number] Age/Sex: 54 / F ADM Date: 02/04/25 Loc: MRI Attending Dr: Flores Eden M.D. Ordering Physician: Flores Eden M.D. Date of Service: 02/04/25 Procedure(s): MR cervical spine wo con Accession Number(s): [id number] cc: Pascale Arana EVENT AV OPERATOR; Flores Eden M.D. [address] [address] Patient Name: TALIA RUTHERFORD MRN: [id number] date: 1970 Sex: F Assigned Patient Location: MRI Current Patient Location: Accession/Order Number: [id number] Exam Date: 02/05/2025 12:10 Report Date: 02/05/2025 [...] Uncovertebral spurring greatest right. Moderate right and jumk-eo-ispkpdfx left-sided neural foraminal narrowing. Mild canal narrowing. C5-6: Broad-based disc bulge with uncovertebral spurring, greatest left. Moderate right-sided moderate to severe left-sided neural foraminal narrowing. Mild central canal stenosis. C6-C7: Broad-based disc osteophyte complex with uncovertebral spurring. Hoef-ua-dybteqgu right moderate severe left neural foraminal narrowing. Mdhg-eb-dfwxnywg canal narrowing. C7-T1: Minimal vertebral hypertrophy. Moderate facet arthropathy. Canal and patent. Mild foraminal narrowing. MR/MR cervical spine wo con IMPRESSION: Overall multilevel degenerative changes with up to fmch-js-unaserev central canal narrowing. Multilevel foraminal encroachment as noted above. Impression dictated by: Mushtaq Antony M.D. 02/05/2025 12:16 PM Dictation Location: [place] [address] Electronically authenticated by: [id number] Y Date: 02/05/2025 12:16 Dictated By: Mushtaq Atnony M.D. Signed By: 02/05/25 1218 DD/ 1216 TD/TT: Leather Stitcher:TBHRadiology, Radiologist, - 02/05/2025 [place] [address] Magnetic Resonance Report Signed Patient: TALIA RUTHERFORD MR#: [id number] : 1970 Acct:[id number] Age/Sex: 54 / F ADM Date: 02/04/25 Loc: MRI Attending Dr: Flores Eden M.D. Ordering Physician: Flores Eden M.D. Date of Service: 02/04/25 Procedure(s): MR cervical spine wo con Accession Number(s): [id number] cc: Pascale Arana EVENT AV OPERATOR; Flores Eden M.D. The [place] [id number] Patient Name: TALIA RUTHERFORD MRN: [id number] date: 1970 Sex: F Assigned Patient Location: MRI Current Patient Location: Accession/Order Number: [id number] Exam Date: 02/05/2025 12:10 Report Date: 02/05/2025 [...] Uncovertebral spurring greatest right. Moderate right and vrqq-go-zhueronz left-sided neural foraminal narrowing. Mild canal narrowing. C5-6: Broad-based disc bulge with uncovertebral spurring, greatest left. Moderate right-sided moderate to severe left-sided neural foraminal narrowing. Mild central canal stenosis. C6-C7: Broad-based disc osteophyte complex with uncovertebral spurring. Rihq-uf-jswzguei right moderate severe left neural foraminal narrowing. Kokr-hx-vyfvcjfo canal narrowing. C7-T1: Minimal vertebral hypertrophy. Moderate facet arthropathy. Canal and patent. Mild foraminal narrowing. MR/MR cervical spine wo con IMPRESSION: Overall multilevel degenerative changes with up to jbyw-wn-xexaviny central canal narrowing. Multilevel foraminal encroachment as noted above. Impression dictated by: Mushtaq Antony M.D. 02/05/2025 12:16 PM Dictation Location: [place] [address] Electronically authenticated by: [id number] Y Date: 02/05/2025 12:16 Dictated By: Mushtaq Antony M.D. Signed By: 02/05/25 1218 DD/ 1216 TD/TT: Leather Stitcher: CHERYL HealthcareRadiology Study observation (narrative)[facility] Cervical spine WO contrastOrdered By: Radiologist Radiology on 47-85-9901SVRSHermann Area District Hospital Work Phone: MR LUMBAR SPINE WO CONon 52-07-9084[place] [address] Magnetic Resonance Report Signed Patient: TALIA RUTHERFORD MR#: [id number] : 1970 Acct:[id number] Age/Sex: 54 / F ADM Date: 02/04/25 Loc: MRI Attending Dr: Flores Eden M.D. Ordering Physician: Flores Eden M.D. Date of Service: 02/04/25 Procedure(s): MR lumbar spine wo con Accession Number(s): [id number] cc: Pascale Arana EVENT AV OPERATOR; Flores Eden M.D. The [address] [address] Patient Name: TALIA RUTHERFORD MRN: [id number]:[id number] date: 1970 Sex: F Assigned Patient Location: MRI Current Patient Location: Accession/Order Number: [id number] Exam Date: 02/05/2025 12:16 Report Date: 02/05/2025 14:18 At the request of: FLORES EDNE MD Procedure: MR lumbar spine wo con [...] Circumferential disc bulge with moderate facet arthropathy. Iusm-ce-nxnmtvqg right-sided and mild left-sided neural foraminal narrowing . 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 Impression dictated by: Mushtaq Antony M.D. 02/05/2025 2:18 PM Dictation Location: [place] [address] Electronically authenticated by: [id number] Y Date: 02/05/2025 14:18 Dictated By: Mushtaq Antony M.D. Signed By: 02/05/25 1421 DD/ 1418 TD/TT: Leather Stitcher:TBHRadiology, Radiologist, - 02/05/2025 [place] [address] Magnetic Resonance Report Signed Patient: TALIA RUTHERFORD MR#: [id number] : 1970 Acct:[id number] Age/Sex: 54 / F ADM Date: 02/04/25 Loc: MRI Attending Dr: Flores Eden M.D. Ordering Physician: Flores Eden M.D. Date of Service: 02/04/25 Procedure(s): MR lumbar spine wo con Accession Number(s): [id number] cc: Pascale Arana NP; Flores Eden M.D. The [place] [id number] Patient Name: TALIA RUTHERFORD MRN: [id number] date: 1970 Sex: F Assigned Patient Location: MRI Current Patient Location: Accession/Order Number: [id number] Exam Date: 02/05/2025 12:16 Report Date: 02/05/2025 [...] Circumferential disc bulge with moderate facet arthropathy. Jfoc-cx-yqdatiue right-sided and mild left-sided neural foraminal narrowing . 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 Impression dictated by: Mushtaq Antony M.D. 02/05/2025 2:18 PM Dictation Location: [place] [address] Electronically authenticated by: [id number] Y Date: 02/05/2025 14:18 Dictated By: Mushtaq Antony M.D. Signed By: 02/05/25 1421 DD/ 1418 TD/TT: Leather Stitcher: [facility] HospitalRadiology Study observation (narrative)[facility] LUMBAR SPINE WO CONOrdered By: Radiologist Radiology on 73-28-6409PEOHHermann Area District Hospital Work Phone: aLL CBC WITH AUTO DIFFon 23-76-0407VGPGBNWBU ABSOLUTE AUTO0.1NOMS HealthcareBasophils/100 WBC (Bld)1 %0.2 - 2.0 %[facility] Eosinophils/100 WBC (Bld)6.9 %0.9 - 7.0 %[facility] HospitalErythrocyte distribution width (RBC) [Ratio]15.6 %High11.0 - 15.0 %[facility] HospitalHematocrit (Bld) [Volume fraction]36.2 %36.0 - 48.0 %[facility] HospitalHemoglobin (Bld) [Mass/Vol] 11.8 g/dLLow12.0 - 16.0 g/dLHermann Area District HospitalIMMATURE GRANULOCYTES ABS AUTO0.01 [facility] HospitalImmature granulocytes/100 WBC (Bld)0.2 %0.0 - 0.5 %[facility] HospitalInterpretation and review of laboratory resultsAbnormalHermann Area District Hospital LYMPHOCYTES ABSOLUTE AUTO1.9NOCox BransonLymphocytes/100 WBC (Bld)32 %20.5 - 60.0 %[facility] HospitalH (RBC) [Entitic mass]28.6 pg26.7 - 34.0 pgNOMS HealthcareMCHC (RBC) [Mass/Vol]32.6 g/dL29.9 - 35.2 g/dLHermann Area District HospitalMCV (RBC) [Entitic vol]87.9 fL81.0 - 99.0 fLNOMS HealthcareMONOCYTES ABSOLUTE AUTO0.3NOMS HealthcareMonocytes/100 WBC (Bld)5.4 %1.7 - 12.0 %NOMS HealthcareNEUTROPHILS ABSOLUTE AUTO3.3NOMS HealthcareNeutrophils/100 WBC (Bld)54.5 %43.0 - 75.0 %NOMS HealthcarePlatelet mean volume (Bld) [Entitic vol]9.6 fL9.5 - 13.5 fLNOMS HealthcareTBH EO #0.4NOMS HealthcareTBH RBA637NBPV HealthcareTB RBC4.12LowNOMS HealthcareTBH WBC6.1NOMS HealthcareCLINISYNCNOMS HealthcareIGP,APTIMA HPV,AGE GDLNon 64-47-3861MRH GDLN ACOG TESTINGNote.[facility] HealthcareComment on above:TESTS RESULT FLAG UNITS REF RANGE LAB Clinician Provided Cytology Information Source.............Cervix;Endocervix No. of containers..01 ThinPrep Vial Age Algo ACOG Fiorella... 3065 FLAG LEGEND: L-Low Normal,H-High Normal,LL-Alert Low,HH-Alert High <-Panic Low,>-Panic High,A-Abnormal,AA-Critical Abnormal Performed at: 01 =[address] [address] Monika Norton MD, HPV APTIMAPositiveAbnormalNegativeNOMS HealthcareComment on above:This nucleic acid amplification test detects fourteen high- risk HPV types (16,18,31,33,35,39,45,51,52,56,58,59,66,68) without differentiation. HPV GENOTYPE 16NegativeNegativeNOMS HealthcareHPV GENOTYPE 18,45NegativeNegative NOMS HealthcareComment on above:Performed at: =[address], [place] [id number] Sealing And Canceling Machine Operator: Monika Norton MD, Phone: [phone] Performed at: [address] [id number] Sealing And Canceling Machine Operator: Monika Norton MD, Phone: [phone] IGP, APTIMA HPV, RFX 16/18,45Note.NOMS HealthcareComment on above:TESTS RESULT FLAG UNITS REF RANGE LAB DIAGNOSIS: 02 NEGATIVE FOR INTRAEPITHELIAL LESION OR MALIGNANCY. Specimen adequacy: 02 Satisfactory for evaluation. Endocervical and/or squamous metaplastic cells (endocervical component) are present. Performed by: Suresh Guerrero [employer] Officer . 02 Note: Note 02 The Pap [...] High,A-Abnormal,AA-Critical Abnormal Performed at: 02 [facility] [address] [address] Monika Norton MD, Interpretation and review of laboratory resultsAbnormLECOM Health - [facility] BRUSH-ALONE CERVIX ENDOCERVIX CLINWestern Missouri Medical CenterMM TOMOSYNTHESIS SCREENING BIon 55-85-7084[place] [address] Mammography Report Signed Patient: TALIA RUTHERFORD MR#: [id number] : 1970 Acct:[id number] Age/Sex: 54 / F ADM Date: 10/23/24 Loc: MAMMO Attending Dr: Pascale Arana NP Ordering Physician: Pascale Arana NP Results: Date of Service: 10/23/24 Follow Up: Procedure(s): MM tomosynthesis screening BI Accession Number(s): [id number] cc: Pascale Arana NP Patient Name: TALIA RUTHERFORD MR#: [id number] : 1970 Exam Date: 10/23/2024 Ordering Doctor: [...] breast cancer at age 51. LOCATION: The [facility] BREAST COMPOSITION: There are scattered areas of [...] Signed By: 10/23/24 1555 DD/ 1555 TD/TT: Leather Stitcher:TBHRadiology, Radiologist, MD - 10/23/2024 [place] [address] Mammography Report Signed Patient: TALIA RUTHERFORD MR#: [id number] : 1970 Acct:[id number] Age/Sex: 54 / F ADM Date: 10/23/24 Loc: MAMMO Attending Dr: Pascale Arana NP Ordering Physician: Pascale Arana NP Results: Date of Service: 10/23/24 Follow Up: Procedure(s): MM tomosynthesis screening BI Accession Number(s): [id number] cc: Pascale Arana NP Patient Name: TALIA RUTHERFORD MR#: [id number] : 1970 Exam Date: 10/23/2024 Ordering Doctor: [...] breast cancer at age 51. LOCATION: The [facility] BREAST COMPOSITION: There are scattered areas of [...] M.D. Signed By: 10/23/241554 DD/ 54 TD/TT: Leather Stitcher: [facility] HospitalRadiology Study observation (narrative)[facility] HospitalMM TOMOSYNTHESIS SCREENING BIOrdered By: Radiologist Radiology on 73-94-3464CQPMHermann Area District Hospital Work Phone: all CBC WITH AUTO DIFFon 90-38-9111GQJMGFTJL ABSOLUTE OZXE5WFKBHermann Area District HospitalBasophils/100 WBC (Bld)0.8 %0.2 - 2.0 %[facility] Eosinophils/100 WBC (Bld)3.9 %0.9 - 7.0 %[facility] HospitalErythrocyte distribution width (RBC) [Ratio]14.2 %11.0 - 15.0 %[facility] HospitalHematocrit (Bld) [Volume fraction]32.9 %Low36.0 - 48.0 %[facility] HospitalHemoglobin (Bld) [Mass/Vol]10.6 g/dLLow12.0 - 16.0 g/dLHermann Area District HospitalIMMATURE GRANULOCYTES ABS OBGM2NAOKHermann Area District HospitalImmature granulocytes/100 WBC (Bld)0 %0.0 - 0.5 %[facility] Interpretation and review of laboratory resultsAbnormalHermann Area District Hospital LYMPHOCYTES ABSOLUTE AUTO1.6NOCox BransonLymphocytes/100 WBC (Bld)31.7 %20.5 - 60.0 %[facility] HospitalH (RBC) [Entitic mass]29.5 pg26.7 - 34.0 pgSaint John's Aurora Community HospitalHC (RBC) [Mass/Vol]32.2 g/dL29.9 - 35.2 g/dLSaint John's Aurora Community HospitalV (RBC) [Entitic vol]91.6 fL81.0 - 99.0 fLHermann Area District HospitalMONOCYTES ABSOLUTE AUTO0.4NOCox BransonMonocytes/100 WBC (Bld)7.2 %1.7 - 12.0 %NOMS HealthcareNEUTROPHILS ABSOLUTE AUTO2.8NOMS HealthcareNeutrophils/100 WBC (Bld)56.4 %43.0 - 75.0 %NOMS HealthcarePlatelet mean volume (Bld) [Entitic vol]10.5 fL9.5 - 13.5 fLNOMS HealthcareTBH EO #0.2NOMS HealthcareTBH TEM522UDYU HealthcareTBH RBC3.59LowNOMS HealthcareTBH WBC4.9NOMS HealthcareCLINISYNCNOMS HealthcareCT FOOT LT WO CONon 73-67-6068KfsP[place] [address] [place] Scan Report Signed Patient: TALIA RUTHERFORD MR#: [id number] : 1970 Acct:[id number] Age/Sex: 54 / F ADM Date: 09/09/24 Loc: CT Attending Dr: Tawana Foster D.P.M. Ordering Physician: Tawana Foster D.P.M. Date of Service: 09/09/24 Procedure(s): CT foot LT wo con Accession Number(s): [id number] cc: ANGEL LUIS GROVES [place] [address] Patient Name: TALIA RUTHERFORD MRN: [id number] date: 1970 Sex: F Assigned Patient Location: CT Current Patient Location: CT Accession/Order Number: [id number] Exam Date: 09/09/2024 15:56 Report Date: 09/09/2024 [...] Signed By: 09/09/24 1742 DD/ 1739 TD/TT: Leather Stitcher:TBHRadiology, Radiologist, - 09/09/2024 [place] [address] CT Scan Report Signed Patient: TALIA RUTHERFORD MR#: [id number] : 1970 Acct:[id number] Age/Sex: 54 / F ADM Date: 09/09/24 Loc: CT Attending Dr: Tawana Foster D.P.M. Ordering Physician: Tawana Foster D.P.M. Date of Service: 09/09/24 Procedure(s): CT foot LT wo con Accession Number(s): [id number] cc: ANGEL LUIS GROVES [place] [address] Patient Name: TALIA RUTHERFORD MRN: [facility]:[id number] date: 1970 Sex: F Assigned Patient Location: CT Current Patient Location: CT Accession/Order Number: [id number] Exam Date: 09/09/2024 15:56 Report Date: 09/09/2024 [...] M.D. Signed By: 09/09/241741 DD/ 38 TD/TT: Leather Stitcher: CHERYL HealthcareRadiology Study observation (narrative)[facility] HealthcareCT FOOT LT WO CONOrdered By: Radiologist Radiology on 73-60-7392IBDE Healthcare Work Phone: XR FOOT LT MIN 3Von 26-79-3474QctP[place] [address] XRay Report Signed Patient: TALIA RUTHERFORD MR#: [id number] : 1970 Acct:[id number] Age/Sex: 54 / F ADM Date: 09/04/24 Loc: EC Attending Dr: Tawana Foster D.P.M. Ordering Physician: Tawana Foster D.P.M. Date of Service: 09/04/24 Procedure(s): XR foot LT min 3V Accession Number(s): [id number] cc: NASH GROVES Peter D.P.M. The [place] [address] Patient Name: TALIA RUTHERFORD MRN: [id number] date: 1970 Sex: F Assigned Patient Location: Current Patient Location: Accession/Order Number: [id number] Exam Date: 09/04/2024 15:53 Report Date: 09/05/2024 [...] Signed By: 09/05/24 1019 DD/ 1016 TD/TT: Leather Stitcher:TBHRadiology, Radiologist, MD - 09/05/2024 [place] [address] XRay Report Signed Patient: TALIA RUTHERFORD MR#: [id number] : 1970 Acct:[id number] Age/Sex: 54 / F ADM Date: 09/04/24 Loc: EC Attending Dr: Tawana Foster D.P.M. Ordering Physician: Tawana Foster D.P.M. Date of Service: 09/04/24 Procedure(s): XR foot LT min 3V Accession Number(s): [id number] cc: NASH GROVES Peter D.P.M. The [place] [id number] Patient Name: TALIA RUTHERFORD MRN: [id number] date: 1970 Sex: F Assigned Patient Location: Current Patient Location: Accession/Order Number: [id number] Exam Date: 09/04/2024 15:53 Report Date: 09/05/2024 [...] Signed By: 09/05/24 1019 DD/ 1016 TD/TT: Leather Stitcher: CHERYL HealthcareRadiology Study observation (narrative)NOMS HealthcareXR FOOT LT MIN 3VOrdered By: Radiologist Radiology on 13-38-2294OYON [facility] Work Phone: cHRONIC WOUND/ULCER (HTRX)on 39-02-0854FLGNAGZVFRWCL BAUMANNII (CHRONIC WOUND/ULCER)0NOMS HealthcareACINETOBACTER BAUMANNII (CHRONIC WOUND/ULCER)Not detectedNOMS HealthcareBACTEROIDES FRAGILIS, VULGATUS (CHRONIC WOUND/ULCER)0NOMS HealthcareBACTEROIDES FRAGILIS, VULGATUS (CHRONIC WOUND/ULCER) Not detectedNOMS HealthcareCITROBACTER FREUNDII (CHRONIC WOUND/ULCER)0NOMS HealthcareCITROBACTER FREUNDII (CHRONIC WOUND/ULCER)Not detectedNOMS Healthcare CLOSTRIDIUM PERFRINGENS, NOVYI, SEPTICUM (CHRONIC WOUND/ULCER)0[facility] CLOSTRIDIUM PERFRINGENS, NOVYI, SEPTICUM (CHRONIC WOUND/ULCER)Not detectedNOMS HealthcareCORYNEBACTERIUM JEIKEIUM, STRIATUM, TUBERCULOSTEARICUM (CHRONIC WOUND/[id number] HealthcareCORYNEBACTERIUM JEIKEIUM, STRIATUM, TUBERCULOSTEARICUM (CHRONIC WOUND/ULCERNot detectedNOMS HealthcareCUTIBACTERIUM (PROPIONIBACTERIUM) ACNES (CHRONIC WOUND/ULCER)0NOMS HealthcareCUTIBACTERIUM (PROPIONIBACTERIUM) ACNES (CHRONIC WOUND/ULCER)Not detectedNOMS Healthcare ENTEROBACTER CLOACAE COMPLEX, KLEBSIELLA (ENTEROBACTER) AEROGENES ([id number] HealthcareENTEROBACTER CLOACAE COMPLEX, KLEBSIELLA (ENTEROBACTER) AEROGENES (CHRONICNot [...] HealthcareP. ANAEROBIUS, P. ASACCAROLYTICUS, F. MAGNA, A. [id number] HealthcareP. ANAEROBIUS, P. ASACCAROLYTICUS, F. MAGNA, A. [...] HealthcareVARICELLA ZOSTER VIRUS (HUMAN HERPESVIRUS 3) (CHRONIC WOUND/ULCER)0NOMS HealthcareVARICELLA ZOSTER VIRUS (HUMAN HERPESVIRUS 3) (CHRONIC WOUND/ULCER)Not detectedNOMS HealthcareVIBRIO CHOLERAE, PARAHAEMOLYTICUS, VULNIFICUS (CHRONIC WOUND/ULCER)0NOMS HealthcareVIBRIO CHOLERAE, PARAHAEMOLYTICUS, VULNIFICUS (CHRONIC WOUND/ULCER)Not detectedNOCox BransonNONJ HealthcareALL CBC WITH AUTO DIFFon 69-52-9212GHZNADHCN ABSOLUTE QNZD9UTNJ HealthcareBasophils/100 WBC (Bld)0.6 %0.2 - 2.0 %[facility] Eosinophils/100 WBC (Bld)0 %Low0.9 - 7.0 %NOM HealthcareErythrocyte distribution width (RBC) [Ratio]13.6 %11.0 - 15.0 %NOMS HealthcareHematocrit (Bld) [Volume fraction]37.4 %36.0 - 48.0 %NOMCenterpointe HospitalHemoglobin (Bld) [Mass/Vol]12.1 g/dL12.0 - 16.0 g/dLNOCox BransonIMMATURE GRANULOCYTES ABS AUTO 0.01NOCox BransonImmature granulocytes/100 WBC (Bld)0.2 %0.0 - 0.5 %[facility] HealthcareInterpretation and review of laboratory resultsAbnormalHermann Area District Hospital LYMPHOCYTES ABSOLUTE AUTO1.1LowNOMS [facility] Medical CenterLymphocytes/100 WBC (Bld)19.9 %Low 20.5 - 60.0 %[facility] HospitalH (RBC) [Entitic mass]29.4 pg26.7 - 34.0 pgNOCoxHealthHC (RBC) [Mass/Vol]32.4 g/dL29.9 - 35.2 g/dLNOCox BransonMCV (RBC) [Entitic vol]91 fL81.0 - 99.0 fLNOCox BransonMONOCYTES ABSOLUTE AUTO0.2Low [facility] HealthcareMonocytes/100 WBC (Bld)4.2 %1.7 - 12.0 %[facility] NEUTROPHILS ABSOLUTE AUTO4.1NOMS HealthcareNeutrophils/100 WBC (Bld)75.1 %High 43.0 - 75.0 %[facility] HospitalPlatelet mean volume (Bld) [Entitic vol]9.7 fL9.5 - 13.5 fLNOCox BransonTBH EO #0NOMS HealthcareTB ZPM452SIQN [facility] CenterTB RBC 4.11LowNOMS [facility] Medical CenterTB WBC5.4NOMS HealthcareCLINISYNCNCEDAR RIDGE [facility]OSPITAL [facility] [place] Healthcare Ambulatory Visit Summaryon 74-91-3619Qcdvbyxwnr Visit SummaryAmbulatory Visit Summary TALIA RUTHERFORD :1970 [...] you for choosing us for your care. [facility]Gastro[facility] Office/Clinic Noteon 41-98-6657Uykhobdgncuzjbit Office/Clinic NoteGastroenterology Office/Clinic Note Chief Complaint ref [...] virus vaccine, inactivated - Not Given Patient RefusesSelect Medical Specialty Hospital - TrumbullComment on above:Result Comment: Electronically Signed By: Jelani WELLER, Ron Valdovinos.br\Date and Time Signed: 03/18/2415:21 EDTOutside Colonoscopyon 81-67-9868Ygvdwcd Colonoscopy [id number]#1.00[facility] HospitalReminderson 29-76-3574Qukhqqciy From: Machelle Arauz LPN To: N - Clinical; Sent: 07/20/2023 10:55:11 EST Show up: 06/19/2033 07:00:00 EST Subject: colonoscopy recall Due Date/Time: 07/19/2033 07:00:00 EST Reminder/Recall Patient due for screening colonoscopy 07/19/2033.[facility] TrumbullLab Reportson 63-26-8037Jmr Reports [id number]#1.00[facility] HospitalInsurance Correspondenceon 76-16-3073Fhpgkmfue Correspondence [id number]#1.00TIFUniversity Hospitals Geauga Medical CenterFacesheeton 56-02-2624Sfsgukjib [id number]#1.00[facility] HospitalPhysician Referralon 18-34-4625Ijjumsvyf Referral [id number]#1.00[facility] HospitalAmbulatory Visit Summaryon 97-66-9845Obnjfizikj Visit Summary TALIA RUTHERFORD DOB:1970 Visit Date:06/07/2023 Ambulatory Visit Instructions Your Care [...] you for choosing us for your care. [facility]ullLab Reportson 41-67-6715Uah [id number]#1.00[facility] HospitalConsultation Noteon 64-12-9397Peygfvcltjqq Note [id number]#1.00TIFUniversity Hospitals Geauga Medical CenterPhysician Referralon 63-27-7024Vrlmamrsx Referral [id number]#1.00TIFUniversity Hospitals Geauga Medical CenterOffice Visiton 19-72-1706Rlnshs-up [id number] Talia Rutherford 1970 Date Provider Department Center 04/07/2023 CAROL MOYA Family History Problem Relation Age of Onset Brain Aneurysm Mother 80 Diabetes Mother Heart failure Father 80 Diabetes Father Hypertension Father Diabetes Sister Family Status - Relation Status Age at Mother Father Sister Level of Service:76[address] [place] OFFICE/OUTPATIENT ESTABLISHED MOD MDM 30-39 [facility]36on 79-12-165587WNJ lab called to report critical HGB and hematocrit for patient: HGB was 5.1 and hematocrit is 18.9. I spoke with Talia and advised she go to the ED. She verbalized understanding and will do so.[facility] HospitalOffice Visiton 81-20-1056Cvhdbk-up [id number] Talia Rutherford 1970 Date Provider Department Center 02/08/2023 CAROL MOYA Family History Problem Relation Age of Onset Brain Aneurysm Mother 80 Diabetes Mother Heart failure Father 80 Diabetes Father Hypertension Father Diabetes Sister Family Status - Relation Status Age at Mother Father Sister Level of Service:18634 [place] OFFICE/OUTPATIENT NEW MODERATE MDM 45-59 MINUTES Reason for Visit and Comments: Establish Care [42] - Swelling in both legs,right leg is itching and painful Shortness of Breath [946490] Dizziness [301830] Fatigue [46][facility] HospitalPREG HCG QUALon 03-10-2022 , QUALNegativeNormalNEGATIVEThe Buskirk HospitalComment on above: Performed By: #### PREG ####[facility] [address] [place] [id number]. Moni JohnsonCovid-19 PCR (CVDTB)on 03-03-2022 SARS-CoV-2 (COVID-19) RNA EMMANUEL+probe Ql (Unsp spec)Not detectedNormalNOT DETECTED The [facility]view Medical Centerment on above:Result Comment: This test is not yet approved or cleared by the [place] FDA. When there are no FDA-approved or cleared tests available, and other criteria are met, FDA can make tests available under an emergency access mechanism called an Emergency Use Authorization (EUA). The EUA for this test is supported by the [place] Layer of Health and Human Service's (HHS's) declaration [...] consistent with SARS-CoV-2.Performed By: #### CVDTBH #### [facility] Laboratory [address] [place] [address] [address] Moni JohnsonPROF CHEM 8 (BAS METB)on 70-63-9620Sydtt gap [Moles/Vol]9.0 mmol/LNormalThe [facility] on above:Performed By: #### BMP ####[facility] [address] [place], [place] [address]QeDr. Moni JohnsonCalcium [Mass/Vol]8.3 mg/dLCritically low8.5-10.1The [facility] Medical Centerment on above:Performed By: #### BMP ####[facility] [address] [place] [address]DrDianne ChangChloride [Moles/Vol]106 mmol/AFdovcp25-407Gzn Fredrick HospitalComment on above:Performed By: #### BMP ####[facility] [address] [place], [place] [address]Dr.Yilan ChangCO2 [Moles/Vol]29.2 mmol/ADwbiji94.0-32.0The [facility] EastComment on above:Performed By: #### BMP ####[facility] [address] [place], [place] [address]Dr.Yilan ChangCreatinine [Mass/Vol]0.78 mg/dLNormal0.55-1.02The [facility] EastComascension [facility] on above: Performed By: #### BMP ####[facility] [address] [place], [place] [address]Dr.Yilan ChangEGFR-AF ENGLISH>60Normal>=60The [facility] on above:Performed By: #### BMP ####[facility] [address] [place], [place] [address]Dr.Yilan ChangEGFR-NON AF ENGLISH>60Normal>=60The [facility] on above:Performed By: #### BMP ####[facility] [address] [place], [place] [address]Dr. Yilan ChangGlucose [Mass/Vol]88 mg/pUZljhlj52-707Vvp [facility] on above:Performed By: #### BMP ####[facility] [address] [place], [place] [address]Dr.Yimaria a ChangPotassium [Moles/Vol]4.2 mmol/LNormal 3.5-5.1The [facility] EastComascension [facility] on above:Performed By: #### BMP ####[facility] [address] [place], [place] [address]Dr.Yilan Johnson Sodium [Moles/Vol]140 mmol/IGdnsks583-699Tji [facility] on above: Performed By: #### BMP ####[facility] [address] [place], [place] [address]Dr.Yilan ChangUrea nitrogen [Mass/Vol]21.0 mg/dL Critically high7.0-18.0The [facility] EastComment on above:Performed By: #### BMP ####[facility] [address] [place], [place] [address]Xt. Moni JohnsonUrea nitrogen/Creatinine [Mass ratio]26.9 mg/mgNoKettering Health TroyComment on above:Performed By: #### BMP ####[facility] [address] [place], [place] [address]Sa.Yimaria a ChangCT FOOT LT WO CONon 47-60-2591DC FOOT LT WO CONEXAMINATION: CT FOOT LT [...] Electronically authenticated by: ELLIOT JOSE Date: 2022-02-22 18:32NoKettering Health TroyCOVID Quick Testingon 20-57-2107EfjqodWqwlmdgkZukbu [facility] Other Quick Fluon 27-09-2761XKDMI Ab CF (S) [Titer]Negative [place] [facility] Other FLUBV Ab CF (S) [Titer]NegativeNossm rehab [facility] Other 178-3835Sdfva-08 PCR ([facility])on 95-24-5763TNPV-CoV-2 (COVID- 19) RNA EMMANUEL+probe Ql (Unsp spec)Not detectedNormalNOT DETECTEDThe [facility] EastComment on above:Result Comment: This test is not yet approved or cleared by the [place] FDA. When there are no FDA-approved or cleared tests available, and other criteria are met, FDA can make tests available under an emergency access mechanism called an Emergency Use Authorization (EUA). The EUA for this test is supported by the [place] Layer of Health and Human Service's (HHS's) declaration [...] consistent with SARS-CoV-2.Performed By: #### CVDTBH #### [facility] Laboratory [address] [place] [address] Dr. Moni Johnson Vital Signs Date TimeVital SignValuePerforming WsphuoumdUuypbvqx48-41-8616 14:52-0500Body mass index (BMI) [Ratio]29.62 kg/q4Thypiim Angeli-Nossek PHYSICIAN LIAISON-FARMHAND Work Phone: [phone] HospitalHswhovqvbf10-27-0794 14:52-0500Body qudchn82.74 kgFelicia Angeli-Nossek PHYSICIAN LIAISON-FARMHAND Work Phone: [phone] HospitalQsxvroklse61-04-9837 14:52-0500Diastolic blood tdoplpci90 mm[Hg]Shay Angeli-Nossek PHYSICIAN LIAISON-FARMHAND Work Phone: [phone] HospitalUpmsdipwdt18-52-3477 14:52-0500Heart rate87 /min Shay Angeli-Nossek PHYSICIAN LIAISON-FARMHAND Work Phone: [phone] HospitalZyywziuvrx65-46-8673 14:52-0500Systolic blood dhlulbva24 mm[Hg]Shay Angeli-Nossek PHYSICIAN LIAISON-FARMHAND Work Phone: [facility] HospitalFczbeexbux87-32-7761 14:35-0500Body mnuwnb413.4 cmNadine Laya MD Work Phone: [facility]11-05-2025 14:35-0500Body mass index (BMI) [Ratio]28.45 kg/a1UeaapzJovon Asif MD Work Phone: [facility]11-05-2025 14:35-0500Body koxoby10.74 kgJovon Asif MD Work Phone: [facility]11-05-2025 14:35-0500Diastolic blood fwsyjhae92 mm[Hg]Jovon Asif MD Work Phone: [facility]11-05-2025 14:35-0500Heart rate 80 /minJovon Asif MD Work Phone: [facility]11-05-2025 14:35-0500Systolic blood jfgyzpun367 mm[Hg]Jovon Asif MD Work Phone: [facility]11-03-2025 16:20-0500Body dboexr624.1 Chenisa Derrickhjarrettz EVENT AV OPERATOR-C Work Phone: [phone]-[facility]11-03-2025 16:20-0500 Body mass index (BMI) [Ratio]29.1 kg/m2Galinasa Derrickhholz EVENT AV OPERATOR-C Work Phone: 1(475)803-[address] [place], [place] 9979111-03-2025 16:20-0500 Body vpztvunwocs03.5 [degF]Pascale Derrickhholz EVENT AV OPERATOR-C Work Phone: [facility]11-03-2025 16:20-0500 Body ddlmow92.37 kgGalinasa Derrickhholz EVENT AV OPERATOR-C Work Phone: [phone]-[facility]11-03-2025 16:20-0500 Diastolic blood mm[Hg]Pascale Derrickhjarrettz EVENT AV OPERATOR-C Work Phone: [facility]11-03-2025 16:20-0500 Heart rate93 /minLisa Aichholz EVENT AV OPERATOR-C Work Phone: 1(833)487-[address] [place], [place] 9979111-03-2025 16:20-0500 Respiratory rate18 /minLisa Aichholz EVENT AV OPERATOR-C Work Phone: 1(711)434-[address] [place], [place] 9979111-03-2025 16:20-0500 SaO2% (BldA) [Mass fraction]96 %Pascale Aichholz EVENT AV OPERATOR-C Work Phone: 1(133)952-[address] [place], [place] 9979111-03-2025 16:20-0500 Systolic blood xeyjlwkx56 mm[Hg]Pascale Aichholz EVENT AV OPERATOR-C Work Phone: [phone])060[address]10-13-2025 14:29-0400 Body dmysek772.1 cmLisa Aichholz EVENT AV OPERATOR-C Work Phone: [phone] [address]10-13-2025 14:29-0400 Body mass index (BMI) [Ratio]29.2 kg/m2Lisa Aichholz EVENT AV OPERATOR-C Work Phone: [phone])34031 [address]10-13-2025 14:29-0400 Body ywsrsy44.83 kgLisa Aichholz EVENT AV OPERATOR-C Work Phone: [phone])18531 [address]10-13-2025 14:29-0400 Diastolic blood mm[Hg]Pascale Aichholz EVENT AV OPERATOR-C Work Phone: 1(376)319-[address] [place], [place] 9979110-13-2025 14:29-0400 Heart rate83 /minLisa Aichholz EVENT AV OPERATOR-C Work Phone: 1(322)120-[address] [place], [place] [address]110-13-2025 14:29-0400 Systolic blood mm[Hg]Pascale Aichholz EVENT AV OPERATOR-C Work Phone: [phone])26831 [address]10-08-2025 16:44-0400 Body umcnzk861.1 cmLisa Aichholz EVENT AV OPERATOR-C Work Phone: 1(586)815-[address] [place], [place] 99[address]110-08-2025 16:44-0400 Body mass index (BMI) [Ratio]29.3 kg/m2Lisa Derrickhholz EVENT AV OPERATOR-C Work Phone: 1(847)437-[address] [place], [place] 9979110-08-2025 16:44-0400 Body pngzioygvak01 [degF]Pascale Aichholz EVENT AV OPERATOR-C Work Phone: 1([phone])34531 [address]10-08-2025 16:44-0400 Body omlimb03.08 kgLisa Aichholz EVENT AV OPERATOR-C Work Phone: [phone])60731 [address]10-08-2025 16:44-0400 Diastolic blood uyaggxqv35 mm[Hg]Pascale Derrickhholz EVENT AV OPERATOR-C Work Phone: [phone]10-08-2025 16:44-0400 Heart rate65 /minLisa Aichholz EVENT AV OPERATOR-C Work Phone: [phone])324-[address] [place], [place] 99[address]110-08-2025 16:44-0400 Respiratory rate16 /minLisa Aichholz EVENT AV OPERATOR-C Work Phone: 1(796)809-[address] [place], [place] 99[address]110-08-2025 16:44-0400 SaO2% (BldA) [Mass fraction]99 %Pascale Aichholz EVENT AV OPERATOR-C Work Phone: 1(484)353-[address] [place], [place] 9979110-08-2025 16:44-0400 Systolic blood myymxrox07 mm[Hg]Pascale Lastholz EVENT AV OPERATOR-C Work Phone: 1(275)921-[address] [place], [place] 99[address]109-10-2025 14:57-0400 Body .4 cmJovon Asif MD Work Phone: [facility]09-10-2025 14:57-0400Body mass index (BMI) [Ratio]28.94 kg/w1EzhuvmJovon Asif MD Work Phone: [facility] HospitalJennerex Biotherapeutics Djbgpp52-55-5404 14:57-0400Body wbcuir47.11 kgJovon Asif MD Work Phone: [facility]09-10-2025 14:57-0400Diastolic blood btlbkubz81 mm[Hg]Jovon Asif MD Work Phone: [facility]09-10-2025 14:57-0400Heart rate 83 /minJovon Asif MD Work Phone: [facility]09-10-2025 14:57-0400Systolic blood mm[Hg]Jovon Asif MD Work Phone: [facility]09-02-2025 08:37-0400Body .1 cmLisa Aichholz Work Phone: [phone]09-02-2025 08:37-0400 Body mass index (BMI) [Ratio]29.2 kg/m2Lisa Aichholz Work Phone: [phone]09-02-2025 08:37-0400 Body prfliw46.6 kgLisa Aichholz Work Phone: 1(632)950-[facility]08-05-2025 11:31-0400 Body mass index (BMI) [Ratio]28.76 kg/m2Lisa Aichholz EVENT AV OPERATOR Work Phone: [facility] HospitalXfautknjgt65-15-5790 11:31-0400Body temperature 97.81 [degF]Pascale Javierz EVENT AV OPERATOR Work Phone: [facility] HospitalGombxnctfk38-49-9222 11:31-0400Body cyhxal69.38 kgLisa Aichholz EVENT AV OPERATOR Work Phone: [facility] HospitalHuwnfpjatt76-57-2454 11:31-0400Diastolic blood kscfuolp66 mm[Hg]Pascale Javierz EVENT AV OPERATOR Work Phone: [facility] HospitalFtzgfhklun32-72-5460 11:31-0400Heart rate99 /min Pascale Sumit EVENT AV OPERATOR Work Phone: [facility] HospitalZtmgpgzcki43-53-5177 11:31-9543IhW7% (BldA) [Mass fraction]97 %Pascale Arana EVENT AV OPERATOR Work Phone: [facility] HospitalTgobmisggv17-59-3083 11:31-0400Systolic blood uuxtsdpp729 mm[Hg]Pascale Arana EVENT AV OPERATOR Work Phone: [facility] HospitalJgvsbduqsf32-49-2036 15:01-0400Body mass index (BMI) [Ratio]28.79 kg/n3AcoqnbxyEunice Dias PMHNP-BC Work Phone: [facility] HospitalZkvqnbgajo81-92-7389 15:01-0400Body nimgpt84.47 kgEunice Dias PMHNP-BC Work Phone: [facility] HospitalTnmctuyujp37-39-8968 15:010400Diastolic blood jqwvfiwt63 mm[Hg]Eunice Dias PMHNP-BC Work Phone: [facility] HospitalUindsvigip28-73-2060 15:01-0400Heart rate88 /min Eunice Dias PMHNP-BC Work Phone: [facility] HospitalNvkdoprcpy30-64-1958 15:01-0400Systolic blood uwwfadnp612 mm[Hg]Eunice Dias PMHNP-BC Work Phone: [facility] HospitalPkuxjzepft00-74-1194 14:23-0400Body nwaliu720.4 cmTmelania Muniz DO Work Phone: [facility]07-17-2025 14:23-0400Body mass index (BMI) [Ratio]28.51 kg/c1Ovsva Muniz DO Work Phone: [facility]07-17-2025 14:23-0400Body evqfdi44.93 kgTanya Muniz DO Work Phone: [facility]07-17-2025 14:23-0400Diastolic blood mm[Hg]Sehlia Muniz DO Work Phone: [facility]07-17-2025 14:23-0400Systolic blood vipxjqdh004 mm[Hg]Shelia Muniz DO Work Phone: [facility]07-02-2025 09:04-0400Body mass index (BMI) [Ratio]29.62 kg/l7HbwzvkgxEunice Dias HNP-BC Work Phone: [facility] HospitalBlctsptsur11-18-1453 09:04-0400Body gbuscb28.74 kgEunice Dias HNP-BC Work Phone: [facility] HospitalLtoiueeucn56-22-8152 09:04-0400Diastolic blood xfvixbht23 mm[Hg]Eunice Dias HNP-BC Work Phone: [facility] HospitalAzlpbbssfm77-29-3759 09:04-0400Heart rate78 /min Eunice Dias HNP-BC Work Phone: [facility] HospitalDtimjeajgu76-62-6714 09:04-0400Systolic blood iawgukev222 mm[Hg]Eunice Dias HNP- Work Phone: [facility] HospitalTrjfdcndrx47-71-3830 16:32-0400Body mass index (BMI) [Ratio]29.99 kg/m2Galinasa Derrickhjarrettz EVENT AV OPERATOR Work Phone: [facility] HospitalSzqywrvixn73-60-1005 16:32-0400Body temperature 98.01 [degF]Pascale Javierz EVENT AV OPERATOR Work Phone: [facility] HospitalJhlobttoum84-59-8677 16:32-0400Body xqpiqg57.74 kgLisa Derrickhholz EVENT AV OPERATOR Work Phone: [facility] HospitalYoenbiveft52-62-1253 16:32-0400Diastolic blood ddywxnqj55 mm[Hg]Pascale Derrickhholz EVENT AV OPERATOR Work Phone: [facility] HospitalLrlnigjjgn02-09-6572 16:32-0400Heart rate82 /min Pascale Aichholz EVENT AV OPERATOR Work Phone: [facility] HospitalCkrcefhojd52-87-8274 16:32-0400Respiratory rate18 /minLisa Derrickhholz EVENT AV OPERATOR Work Phone: [facility] HospitalEkyjpqvzmz69-11-4834 16:32-9726UrW8% (BldA) [Mass fraction]98 %Pascale Arana EVENT AV OPERATOR Work Phone: [facility] HospitalNqtqzjsqhd00-32-1424 16:32-0400Systolic blood offxtipu695 mm[Hg]Pascale Arana EVENT AV OPERATOR Work Phone: [facility] HospitalPtpcezrnnw35-88-3369 15:30-0400Body mass index (BMI) [Ratio]32.48 kg/m2Lisa Shalaholz EVENT AV OPERATOR Work Phone: [facility] HospitalOvwixhmxei37-65-4467 15:30-0400Body temperature 98.2 [degF]Pascale Herreraz EVENT AV OPERATOR Work Phone: [facility] HospitalTeihhwxlkb30-65-7841 15:30-0400Body haowzf88.54 kgLisa Herreraz EVENT AV OPERATOR Work Phone: [facility] HospitalQeqlfwwnus52-65-6691 15:30-0400Diastolic blood eipxujza78 mm[Hg]Pascale Herreraz EVENT AV OPERATOR Work Phone: [facility] HospitalPqaowschbc89-06-6238 15:30-0400Heart rate80 /min Pascale Herreraz EVENT AV OPERATOR Work Phone: [facility] HospitalSikbokajvz60-71-3582 15:30-0400Respiratory rate18 /minLisa Arana EVENT AV OPERATOR Work Phone: [facility] HospitalOwzjyiwpdv59-86-1599 15:30-0559NdS4% (BldA) [Mass fraction]95 %Pascale Herreraz EVENT AV OPERATOR Work Phone: [facility] HospitalXymemntrop03-43-6747 15:30-0400Systolic blood zbsoyoif836 mm[Hg]Pascale Herreraz EVENT AV OPERATOR Work Phone: [facility] HospitalQvlrvbffbi11-24-7781 17:34-0400Body mass index (BMI) [Ratio]32.58 kg/m2Galinasa Shalaholz EVENT AV OPERATOR Work Phone: [facility] HospitalUhcbohqpps15-59-7137 17:34-0400Body temperature 98.8 [degF]Pascale Javierz EVENT AV OPERATOR Work Phone: [facility] HospitalQbvisvlqui47-83-4368 17:34-0400Body .81 kgLisa Shalaholz EVENT AV OPERATOR Work Phone: [facility] HospitalHefkluwjub30-75-2153 17:34-0400Diastolic blood qbbtzoau19 mm[Hg]Pascale Shalaholz EVENT AV OPERATOR Work Phone: [facility] HospitalVuyborpmur25-93-8977 17:34-0400Heart rate92 /min Pascale Shalaholz EVENT AV OPERATOR Work Phone: [facility] HospitalMmfszcsdqr02-23-7206 17:34-0400Respiratory rate18 /minLisa Shalaholz EVENT AV OPERATOR Work Phone: [facility] HospitalIaubyhvcrr77-93-8665 17:34-9213LmB6% (BldA) [Mass fraction]97 %Pascale Javierz EVENT AV OPERATOR Work Phone: [facility] HospitalQudyehyear81-83-6205 17:34-0400Systolic blood phaxnklj62 mm[Hg]Pascale Javierz EVENT AV OPERATOR Work Phone: [facility] HospitalSmidlvevnz56-05-4232 16:51-0400Body .1 cmLisa Shalaholz EVENT AV OPERATOR Work Phone: [facility] HospitalTukrkzcmab63-83-4865 16:51-0400Body mass index (BMI) [Ratio]33.51 kg/m2Lisa Shalaholz EVENT AV OPERATOR Work Phone: [facility] HospitalMirepklfki58-55-4382 16:51-0400Body temperature 97.81 [degF]Pascale Shalaholz EVENT AV OPERATOR Work Phone: [place] [address]Pilhtvjcse12-94-9122 16:51-0400Body haafqs42.35 kgLisa Shalaholz EVENT AV OPERATOR Work Phone: [place] [address]Jlrtfktwdd27-04-4550 16:51-0400Heart rate68 /min Pascale Shalaholz EVENT AV OPERATOR Work Phone: [place] [address]Ktbwkrfluz71-78-6657 16:51-0400Respiratory rate18 /minPascale Arana EVENT AV OPERATOR Work Phone: [facility] HospitalEspgtnjfxa04-14-6670 16:51-6939JyA0% (BldA) [Mass fraction]97 %Pascale Arana EVENT AV OPERATOR Work Phone: [facility] HospitalIklyvuxkzg39-12-3047 16:10-0500Body txykgo435.1 cmAngel Luis Nolanpatrick EVENT AV OPERATOR Work Phone: [facility] HospitalEkqjxwrnnj1971 16:10-0500Body mass index (BMI) [Ratio]33.28 kg/r1Qnfwueko Groves EVENT AV OPERATOR Work Phone: [facility] HospitalIulzzaotzd81-16-4119 16:10-0500Body temperature 97.2 [degF]Angel Luis Groves EVENT AV OPERATOR Work Phone: [facility] HospitalHgkycignxu71-50-6817 16:10-0500Body uqluln01.72 kgBrmanasa Groves EVENT AV OPERATOR Work Phone: [facility] HospitalRkqtpoxidz87-81-3386 16:10-0500Diastolic blood opsquzmk64 mm[Hg]Angel Luis Groves EVENT AV OPERATOR Work Phone: [facility] HospitalKjcjjbfivi50-97-4993 16:10-0500Heart rate79 /min Angel Luis Groves EVENT AV OPERATOR Work Phone: [facility] HospitalRgpssauyle42-29-3018 16:10-0500Respiratory rate16 /minBrmanasa Groves EVENT AV OPERATOR Work Phone: [facility] HospitalHpaldrlpsd59-03-4715 16:10-2554OjH2% (BldA) [Mass fraction]98 %Angel Luis Groves EVENT AV OPERATOR Work Phone: [facility] HospitalQwtzkvshzb36-44-2589 16:10-0500Systolic blood mm[Hg]Angel Luis Groves EVENT AV OPERATOR Work Phone: [facility] HospitalZsxwnqwelp03-65-7698 16:04-0500Body mass index (BMI) [Ratio]33.32 kg/m2Pascale Arana EVENT AV OPERATOR Work Phone: [facility] HospitalPqqialwrkq34-91-2548 16:04-0500Body temperature 98.1 [degF]Pascale Arana EVENT AV OPERATOR Work Phone: [facility] HospitalXrtpzmgphi71-18-0858 16:04-0500Body .81 kgPascale Arana EVENT AV OPERATOR Work Phone: [facility] HospitalGmdrmsbkjx23-48-8902 16:04-0500Diastolic blood eknzlavh38 mm[Hg]Pascale Arana EVENT AV OPERATOR Work Phone: [facility] HospitalSxhatzhzyi14-08-1009 16:04-0500Heart rate80 /min Pascale Arana EVENT AV OPERATOR Work Phone: [facility] HospitalLmlfmnqmsi52-14-5482 16:04-0500Respiratory rate20 /minPascale Arana EVENT AV OPERATOR Work Phone: 1(537)189-[address] [place], [place] [address]Eawnrqolsj64-72-5156 16:04-3778NvK4% (BldA) [Mass fraction]97 %Pascale Arana EVENT AV OPERATOR Work Phone: [facility] HospitalDfcmlihxfv21-07-4776 16:04-0500Systolic blood sixexqid30 mm[Hg]Pascale Arana EVENT AV OPERATOR Work Phone: [facility] HospitalXxhudtzfoq97-73-7647 14:59-0500Body .1 cmBrmanasa Groves EVENT AV OPERATOR Work Phone: [facility] HospitalYzhsesyvlw06-13-4889 14:59-0500Body mass index (BMI) [Ratio]34.28 kg/m0Xmdqbptk Groves EVENT AV OPERATOR Work Phone: [facility] HospitalRnpddvwezq78-54-4005 14:59-0500Body temperature 96.21 [degF]Angel Luis Groves EVENT AV OPERATOR Work Phone: [facility] HospitalFjtrjvhmft16-36-4168 14:59-0500Body vsnucm80.44 kgAngel Luis Groves EVENT AV OPERATOR Work Phone: [facility] HospitalMiyvfntcay57-64-1415 14:59-0500Diastolic blood byeqlrul80 mm[Hg]Angel Luis Groves EVENT AV OPERATOR Work Phone: [facility] HospitalYmzbzmtsfa50-55-1305 14:59-0500Heart rate83 /min Angel Luis Groves EVENT AV OPERATOR Work Phone: [facility] HospitalYmmnndyvop55-77-8755 14:59-0500Respiratory rate22 /minBrmanasa Groves EVENT AV OPERATOR Work Phone: [facility] HospitalAlfpjnhudf83-56-3219 14:59-4789JqE4% (BldA) [Mass fraction]98 %Angel Luis Groves EVENT AV OPERATOR Work Phone: [facility] HospitalFowkdaupwz10-92-8446 14:59-0500Systolic blood mrjpcamr900 mm[Hg]Angel Luis Groves EVENT AV OPERATOR Work Phone: [facility] HospitalVkupgahwdr28-06-6653 15:56-0400Body okjxyn939.1 cmAngel Luis Groves EVENT AV OPERATOR Work Phone: [facility] HospitalWetzueasvc84-39-8548 15:56-0400Body mass index (BMI) [Ratio]33.61 kg/o2Rkvxokpq Groves EVENT AV OPERATOR Work Phone: [facility] HospitalDzhrkdglae12-98-9442 15:56-0400Body temperature 98.29 [degF]Angel Luis Groves EVENT AV OPERATOR Work Phone: [facility] HospitalBmiwrnwhyl36-46-7760 15:56-0400Body .63 kgBrjellyany Groves EVENT AV OPERATOR Work Phone: [place] [address]Eplrlbhatq08-59-8052 15:56-0400Diastolic blood mm[Hg]Angel Luis Groves EVENT AV OPERATOR Work Phone: [place] [address]Sisxdheokb58-55-1684 15:56-0400Heart rate67 /min Angel Luis Groves EVENT AV OPERATOR Work Phone: [facility] HealthcareComment on above:98% R025-91-7617 15:56-0400Systolic blood uvvehgpw587 mm[Hg]Angel Luis Nolanpatrick EVENT AV OPERATOR Work Phone: [facility] HospitalMcjlikrnoj20-89-5303 15:06-0400Blood Pressure LocationMohamad Mouchli [phone]-[facility]zeknMer[facility]08-26-2024 15:06-0400Diastolic blood uaczxoya91 mm[Hg]Mohamad Mouchli 423-7805Jfnlxk-PglfgMercy Health Anderson Hospital08-26-2024 15:06-0400Heart rate85 /minMohamad Mouchli 315-7363Tfhzun-QrnhlMercy Health Anderson Hospital08-26-2024 15:06-0400Respiratory rate16 /minMohamad Mouchli 167-5793Qlunew-KhjmsMercy Health Anderson Hospital08-26-2024 15:06-0400Systolic blood jaczsncd905 mm[Hg]Ricaamad Mouchli 366-2937Hbivwk-VltnsMercy Health Anderson Hospital08-20-2024 15:46-0400Body .1 cmAngel Luis Brittonzpatrick EVENT AV OPERATOR Work Phone: [facility] HospitalUgxwkxiejt83-41-7295 15:46-0400Body mass index (BMI) [Ratio]33.28 kg/q1Urbpjllg Groves EVENT AV OPERATOR Work Phone: [place] [address]Mdficotder96-60-4487 15:46-0400Body temperature 98.01 [degF]Angel Luis Brittonzpatrick EVENT AV OPERATOR Work Phone: [facility] HospitalCjunpjpnvm69-23-8184 15:46-0400Body puimsd53.72 kgBrmanasa Groves EVENT AV OPERATOR Work Phone: [place] [address]Mfqbclszns78-01-7547 15:46-0400Diastolic blood onmpdpxb92 mm[Hg]Angel Luis Brittonzpatrick EVENT AV OPERATOR Work Phone: noCox BransonFuafwonkwj74-32-4937 15:46-0400Heart rate71 /min Angel Luis Blackburnk EVENT AV OPERATOR Work Phone: [facility] HealthcareComment on above:99% Z055-27-3657 15:46-0400Systolic blood fexlizxp811 mm[Hg]Angel Luis Mathurtrick EVENT AV OPERATOR Work Phone: noCox BransonUmkurpoqog91-43-5092 16:03-0500Blood Pressure LocationMichael NILL General Surgery Xobgxmqf09-88-6665 16:03-0500Diastolic blood mm[Hg]Segun NILL [facility] Bnmkxzae79-78-7872 16:03-0500Heart rate 72 /minMichael NILL [facility] Vixvwpdc82-56-8791 16:03-0500 Respiratory rate16 /minMichael NILL [facility] Isichmxc31-36-7187 16:03-0500Systolic blood smovqzuy489 mm[Hg]Segun NILL [facility] Yidhgsxu28-71-3269 13:00-0500Body trdeca261.1 Phill Quintana Other [facility] Other 02-07-2022 13:00-0500Body mass index (BMI) [Ratio] 30.95 kg/f9BovgtKristin Quintana Other [facility] Other 02-07-2022 13:00-0500Body pqjtuadhszs47 [degF]Kristin Quintana Other [facility] Other 02-07-2022 13:00-0500Body ajzyxi98.37 kgAmbdanielito Quintana Other [facility] Other 02-07-2022 13:00-0500Respiratory rate16 /minKristin Quintana Other [facility] Other 02-07-2022 13:00-4648CjZ4% (BldA) [Mass fraction]98 % Kristin Quintana Other [facility] Other Encounters Encounter DateEncounter TypeCare ProviderFacilityStart: 06-02-2025 End: 98-56-9069Cemxxq outpatient visit 40 minutesFebeth Wilks Angeli-Nossek PHYSICIAN LIAISON-FARMHAND Work Phone: [facility] HealthComment on above:Severe episode of recurrent major depressive disorder, without psychotic features (HCC) Start: 06-02-2025 End: 97-64-3980idqjziqyliPVVJOQW M ANGELI-NOSSEKNot AvailableStart: 06-02-2025 End: 60-70-1671Mhmwiu flowsheetFelicia M Angeli-Nossek PHYSICIAN LIAISON-FARMHAND Work Phone: [facility] HealthStart: 06-02-2025 End: 49-53-1569Yyzoaz flowsheetFelicia M Angeli-Nossek PHYSICIAN LIAISON-FARMHAND Work Phone: [facility] HealthStart: 05-28-2025 End: 48-37-4494Ylbwjg outpatient visit 25 minutesJovon Asif MD Work Phone: [facility]Ohio [facility] Centerca Physicians Pelvic Health - UrogynComment on above:Urge urinary incontinence (Primary Dx); Cystocele with second degree uterine prolapse; History of reconstructive repair of rectoceleStart: 05-28-2025 End: 89-36-0001wtcyeqiavtMSHYOTJanny Berkowitz [facility] PPGStart: 05-26-2025 End: 53-11-7674mwrqsunxceZunjZuhair GREENC Work Phone: -[facility] ClydeStart: 05-26-2025 End: 03-39-5361Dwnuhbw encounter procedurePascale Arana EVENT AV OPERATOR-C-[facility] Work Phone: Start: 05-21-2025 End: 00-30-0764Vcobnykse encounterRohan [facility] HealthStart: 05-05-2025 End: 89-81-4681lydpasekwpRsxn J Aichholz EVENT AV OPERATOR-C Work Phone: [facility] Work Phone: Start: 05-05-2025 End: 94-97-5338Lurpnwr encounter procedureClinton Del Toro APRUniversity Of Missouri Health Care Work Phone: Start: 78-90-7432Ibo-patient / Non-visitLisa Bang Arana EVENT AV OPERATOR-C-[facility] Work Phone: Start: 05-05-2025 End: 13-02-4352doxqwrnjwhDyyjohf Vytautas Giedraitis MDFacility:MARCELINO [facility] Start: 05-02-2025 End: 18-23-2470Dkfomuure encounterKennaveen Gudino CMAProMedica Physicians Pelvic Health - UrogynecologyStart: 04-30-2025 End: 33-15-8268qfawyxqvkqYkrz J Aichholz EVENT AV OPERATOR-C Work Phone: [facility] Work Phone: Start: 04-30-2025 End: 28-84-3140Mlvvtyv encounter procedurePascale Arana NP-C-[facility] Work Phone: Start: 04-23-2025 End: 94-27-3623Woecuuz encounter procedureShun Arshad MD-[facility] Work Phone: Start: 04-23-2025 End: 49-81-8535bbrlkvulmjKeqi J Aichholz EVENT AV OPERATOR-C Work Phone: [facility] Work Phone: Start: 50-53-7522Snz-patient / Non-visitChristian Olivier Dong MD-[facility] Work Phone: Start: 04-09-2025 End: 27-96-4934zkntslmegiONTMGM MALICKINot AvailableStart: 04-09-2025 End: 99-00-3140Aykbma flowsheetBayley Malicki LPCNOMS [facility] Start: 04-09-2025 End: 06-90-2301Zhtmzm flowsheetBayley Malicki LPCNOMS [facility] Start: 04-03-2025 End: 19-38-2094Tvqutp outpatient visit 15 Prudencekrystina Dias PMHNP- Work Phone: [facility] Behavior[facility] HealthComment on above:JESSIKA (generalized anxiety disorder) ; Severe episode of recurrent major depressive disorder, without psychotic features (HCC); PTSD (post-traumatic stress disorder) ; Insomnia, unspecified type; FibromyalgiaStart: 04-03-2025 End: 24-89-1574onihawlgzmUQUSQOGI BRITTONNot AvailableStart: 04-02-2025 End: 78-62-7158Jdiwlp outpatient new 45 Byron Asif MD Work Phone: [facility] UrogynComment on above:Cystocele with second degree uterine prolapse (Primary Dx); History of reconstructive repair of rectocele; Urge urinary incontinenceStart: 04-02-2025 End: 75-93-5872zmrguelaxfMTBRER C KASSISPremier Health Ambulatory PPGStart: 03-25-2025 End: 28-67-2192wxwncojbljCGUPWI MALICKINot AvailableStart: 03-25-2025 End: 68-57-5684Snjwzm flowsheetBayley Malicki LPCNOMS [facility] Start: 03-25-2025 End: 80-10-0861Kvdyiy flowsheetBayley Malicki LPCNOMS [facility] Start: 03-25-2025 End: 78-42-9168pqzbkhirpfQtma J Aichholz Work Phone: [facility] Work Phone: Start: 03-25-2025 End: 22-35-7126Vopyhck encounter Dexter Arshad MD-[facility] Work Phone: start: 03-10-2025 End: 33-99-1975wvxrqowhfbAnvkkdt Vytautas Giedraitis MDFacility:[facility] Start: 03-06-2025 End: 93-83-2230yguyhfnyggMWKCEO MALICKINot AvailableStart: 03-06-2025 End: 96-66-5553Ynmqmn flowsheetBayley Malicki LPCNOMS [facility] Start: 03-06-2025 End: 08-47-0840Qapzwi flowsheetBayley Malicki LPCNOMS [facility] Start: 03-05-2025 End: 30-66-2065Aypjbveek Result EncounterLisa Aichholz EVENT AV OPERATOR Work Phone: noms External Department UnsolicitedStart: 03-05-2025 End: 71-43-4519Ddbigzrsb Result EncounterLisa Aichholz EVENT AV OPERATOR Work Phone: noms External Department UnsolicitedStart: 02-26-2025 End: 76-88-1354Xccgjyili Result EncounterGeneric External Data ProviderNOMS External Department UnsolicitedStart: 02-26-2025 End: 58-64-0745Zzxgdezwh Result EncounterGeneric External Data ProviderNOMS External Department UnsolicitedStart: 02-26-2025 End: 68-05-7277TemaseKuia Aichholz EVENT AV OPERATOR Work Phone: noms CWM FMComment on above:Gastroesophageal reflux disease, unspecified whether esophagitis present (Primary Dx)Start: 02-25-2025 End: 22-04-6106Whqnyl outpatient visit 25 minutesLisa Derrickhholz EVENT AV OPERATOR Work Phone: noms CWM FMComment on above:Severe episode of recurrent major depressive disorder, without psychotic features (HCC) (Primary Dx); Cigarette nicotine dependence without complication; PTSD (post-traumatic stress disorder) ; Class 1 obesity due to excess calories without serious comorbidity with body mass index (BMI) of 32.0 to 32.9 in adult; Iron deficiency anemia secondary to inadequate dietary iron intake; Primary insomniaStart: 02-25-2025 End: 74-15-8999sbhpvpqxhlBNNQ AICHHOLZNot AvailableStart: 02-24-2025 End: 45-81-5387sgamronxbcSKUXMNWZ DIVYAAugusta AvailableStart: 02-24-2025 End: 59-36-0083Ugsfaa outpatient visit 15 minutesEunice Dias [facility] Work Phone: noms [facility] HealthComment on above:JESSIKA (generalized anxiety disorder) ; Severe episode of recurrent major depressive disorder, without psychotic features (HCC); PTSD (post-traumatic stress disorder) ; Insomnia, unspecified type; Sleep apnea, unspecified typeStart: 02-24-2025 End: 51-97-2111Rshyba [facility] huntsvilleEunice WallsGarfield Memorial Hospital Work Phone: noms [facility] HealthStart: 02-24-2025 End: 14-96-2997Jqubjj [facility] Centeraguila Dias [facility] Work Phone: noms [facility] HealthStart: 02-24-2025 End: 73-23-1734Whcwz Birdie Asif MD Work Phone: [facility] Start: 02-20-2025 End: 72-12-8664DqcjqpMdur Aichholz NP Work Phone: noms CW FMComment on above:Psychophysiological insomniaStart: 02-19-2025 End: 00-23-3741Xmecfdvps Result EncounterGeneric External Data ProviderNOMS External Department UnsolicitedStart: 02-19-2025 End: 98-74-5547Zqbyffyge Result EncounterGeneric External Data ProviderNOMS External Department UnsolicitedStart: 02-11-2025 End: 23-86-2954QhftbzFpdo Aichholz EVENT AV OPERATOR Work Phone: noms CWM FMComment on above:UTI (urinary tract infection), uncomplicated; Class 1 obesity due to excess calories without serious comorbidity in adult, unspecified BMI; BMI 32.0-32.9,adultStart: 02-06-2025 End: 92-66-8365Vnniez outpatient new 30 minutesTanya Javier Muniz DO Work Phone: [facility]/GynecologyComment on above:Cystocele with second degree uterine prolapse (Primary Dx); History of reconstructive repair of rectocele; Urge urinary incontinence; Incomplete emptying of bladder; Atrophic vaginitisStart: 02-06-2025 End: 37-89-9746AulnisHavj Aichholz EVENT AV OPERATOR Work Phone: noms CWM FMComment on above:URTI (acute upper respiratory infection); Non-recurrent acute suppurative otitis media of both ears without spontaneous rupture of tympanic membranesStart: 02-05-2025 End: 68-72-5318Fudimgbon Result EncounterGeneric External Data ProviderNOMS External Department UnsolicitedStart: 02-05-2025 End: 98-38-6219Zpmnvbfyy Result EncounterGeneric External Data ProviderNOMS External Department UnsolicitedStart: 01-22-2025 End: 90-72-2117Btnwpm Sarah Dias [facility] Work Phone: noms CI BHStart: 01-22-2025 End: 90-84-1882Punixt Sarah Disa [facility] Work Phone: noms CI BHStart: 01-22-2025 End: 87-75-6063frtgizkqvlSMRHZDIA BRITTONNot AvailableStart: 01-20-2025 End: 04-32-9627udtaeymivsFdlzaob Matt Eden MDFacility:[facility] Start: 01-14-2025 End: 28-51-3832Iecervxmy Result EncounterPascale Arana EVENT AV OPERATOR Work Phone: noms External Department UnsolicitedStart: 01-14-2025 End: 95-71-3706Xkqbjisvh Result EncounterLisa Shalaholz EVENT AV OPERATOR Work Phone: noms External Department UnsolicitedStart: 01-14-2025 End: 94-24-6772YbtzyqLtld Aichholz EVENT AV OPERATOR Work Phone: noms CWM FMComment on above:URTI (acute upper respiratory infection); Non-recurrent acute suppurative otitis media of both ears without spontaneous rupture of tympanic membranesStart: 01-07-2025 End: 93-48-6628Avebie OnlyLisa Derrickhholz EVENT AV OPERATOR Work Phone: noms CWM FMComment on above:B12 deficiency (Primary Dx); Iron deficiency anemia secondary to inadequate dietary iron intakeStart: 01-06-2025 End: 28-62-3103Zbudkp outpatient visit 25 minutesLi Javierz EVENT AV OPERATOR Work Phone: noms CWM FMComment on above:Bipolar disorder with severe depression (HCC) (Primary Dx); Gastroesophageal reflux disease, unspecified whether esophagitis present; Class 1 obesity due to excess calories without serious comorbidity with body mass index (BMI) of 32.0 to 32.9 in adult; Cigarette nicotine dependence without complication; Stress; Fibromyalgia; Psychophysiological insomniaStart: 01-06-2025 End: 09-95-3205slccdkeiizPTZA DERRICKHHOLZNot AvailableStart: 01-06-2025 End: 31-72-6466Jsmyny flowsheetLisa Aichholz EVENT AV OPERATOR Work Phone: noms CWM FMStart: 01-06-2025 End: 32-51-6973Tnifpw flowsheetLisa Aichholz EVENT AV OPERATOR Work Phone: noms CWM FMStart: 01-06-2025 End: 44-32-1772Ryhqfuehm encounterLisa Aichholz EVENT AV OPERATOR Work Phone: noms CWM FMStart: 12-18-2024 End: 09-55-1325GylfibOlwv Aichholz EVENT AV OPERATOR Work Phone: noms CWM FMComment on above:URTI (acute upper respiratory infection); Non-recurrent acute suppurative otitis media of both ears without spontaneous rupture of tympanic membranesStart: 11-20-2024 End: 66-65-0288nxswobpqofCHFA AICHHOLVIJAYAot AvailableStart: 11-20-2024 End: 32-37-1080Mzjmddm encounter procedurePascale Lastdes EVENT AV OPERATOR Work Phone: noms HealthcareStart: 11-20-2024 End: 41-56-5438Jkfyjjgt preventive med est patient 40-64yrsLisa Lastdes EVENT AV OPERATOR Work Phone: noms CWM FMComment on above:Well [...] Hot flashes due to menopauseStart: 11-20-2024 End: 21-51-3356Qqpcqn flowsheetPascale Herreraantwon EVENT AV OPERATOR Work Phone: noms CW FMStart: 11-20-2024 End: 86-74-0295Wnlfzz flowsheetPascale Herreraantwon EVENT AV OPERATOR Work Phone: noms CW FMStart: 11-20-2024 End: 72-49-2074Jdeirebio Result EncounterPascale Herreraantwon EVENT AV OPERATOR Work Phone: noms External Department UnsolicitedStart: 11-18-2024 End: 89-41-9998ZqpgxcIbwy Aichholantwon EVENT AV OPERATOR Work Phone: noms CWM FMComment on above:Overactive bladder due to prolapse of female genital organGastroesophageal reflux disease, unspecified whether esophagitis presentPsychophysiological insomniaFibromyalgiaEnvironmental and seasonal allergiesURTI (acute upper respiratory infection); Non-recurrent acute suppurative otitis media of both ears without spontaneous rupture of tympanic membranesBipolar disorder with severe depression ([facility]/HCC) Start: 10-23-2024 End: 14-68-2554Omyxul outpatient visit 15 minutesLisa Arana EVENT AV OPERATOR Work Phone: noms CWM FMComment on above:Iron deficiency anemia secondary to inadequate dietary iron intake (Primary Dx); Class 1 obesity due to excess calories without serious comorbidity in adult, unspecified BMI; Cigarette nicotine dependence without complication; B12 deficiency; BMI 32.0-32.9,adultStart: 10-23-2024 End: 48-68-9566Qyyvcafhb Result EncounterLisa Derrickhholz EVENT AV OPERATOR Work Phone: noms External Department UnsolicitedStart: 10-23-2024 End: 21-76-8983Zhftozjjo Result EncounterLisa Aichholz EVENT AV OPERATOR Work Phone: noms External Department UnsolicitedStart: 10-23-2024 End: 78-37-5023Nplqgnu encounter Shaniqua De Anda MD Work Phone: noms HealthcareStart: 10-23-2024 End: 28-74-0249DpvmscXjdm Naderer MD Work Phone: noms CWM FMComment on above:URTI (acute upper respiratory infection); Non-recurrent acute suppurative otitis media of both ears without spontaneous rupture of tympanic membranesStart: 10-03-2024 End: 09-60-0122Nruzoodbm Result EncounterLisa Derrickhholz EVENT AV OPERATOR Work Phone: noms External Department UnsolicitedStart: 10-03-2024 End: 63-18-7345Jirpsbabg Result EncounterLisa Derrickhholz EVENT AV OPERATOR Work Phone: noms External Department UnsolicitedStart: 10-02-2024 End: 68-11-9545Dmfvoa outpatient visit 25 minutesLisa Sumit EVENT AV OPERATOR Work Phone: noms CWM FMComment on above:Gastroesophageal [...] female genital organ; BMI 34.0-34.9,adultStart: 10-02-2024 End: 65-52-4431wgakwntjjdIZNA AICHHOLZNot AvailableStart: 10-02-2024 End: 91-45-4175Dvmcen flowsheetPascale Arana EVENT AV OPERATOR Work Phone: noms CW FMStart: 10-02-2024 End: 07-15-4318Nyfglx carlheetPascale Arana EVENT AV OPERATOR Work Phone: noms CW FMStart: 09-09-2024 End: 14-69-8086Kjcofwonz Result EncounterGeneric External Data ProviderNOMS External Department UnsolicitedStart: 09-09-2024 End: 50-50-9933Ycluvpyoj Result EncounterGeneric External Data ProviderNOMS External Department UnsolicitedStart: 09-06-2024 End: 63-10-9115LrobncRjan Aichholz EVENT AV OPERATOR Work Phone: noms CWM FMComment on above:Environmental and seasonal allergiesStart: 09-05-2024 End: 38-24-6464Ztkmuteaa Result EncounterGeneric External Data ProviderNOMS External Department UnsolicitedStart: 09-05-2024 End: 57-87-8604Khyqquzxj Result EncounterGeneric External Data ProviderNOMS External Department UnsolicitedStart: 09-04-2024 End: 27-42-1189Tzrrva outpatient visit 10 Fatou Groves EVENT AV OPERATOR Work Phone: noms CW FMComment on above:BMI 33.0-33.9,adult (Primary Dx); Bipolar disorder with severe depression ([facility]/HCC); Fibromyalgia; Gastro-esophageal reflux disease without esophagitis; Esophageal reflux; BMI 34.0-34.9,adult; Psychophysiological insomnia; Overactive bladder due to prolapse of female genital organStart: 09-04-2024 End: 63-33-7935ptuuedmxbkSCYVRNGA FITZPATRICKNot AvailableStart: 09-04-2024 End: 26-07-2804Sxnoeu flowsheetBrittany Groves EVENT AV OPERATOR Work Phone: NOMS CWM FMStart: 09-04-2024 End: 36-11-1645Ftfqzl flowsheetBrittany Groves EVENT AV OPERATOR Work Phone: NOMS CWM FMStart: 08-28-2024 End: 88-19-7127ObdsddXfwwpewo Groves EVENT AV OPERATOR Work Phone: NOMS CWM FMComment on above:FibromyalgiaStart: 08-14-2024 End: 52-26-0377DxlmcgPjpgoici Groves EVENT AV OPERATOR Work Phone: NOMS CWM FMComment on above:FibromyalgiaStart: 08-12-2024 End: 63-46-3639Osqshu outpatient visit 25 minutesLisa Arana EVENT AV OPERATOR Work Phone: NOZJ CWM FMComment on above:Acute non-recurrent maxillary sinusitis (Primary Dx); Cigarette nicotine dependence without complication; Class 1 obesity due to excess calories without serious comorbidity in adult, unspecified BMI; Environmental and seasonal allergies; Cutaneous abscess of abdominal wallStart: 08-12-2024 End: 33-76-1127ncihdfethqVUPI AICHHOLZNot AvailableStart: 08-12-2024 End: 16-13-1333Cfrnek flowsheetLisa Aichholz EVENT AV OPERATOR Work Phone: NOCE CWM FMStart: 08-12-2024 End: 84-73-1222Dqqqnt flowsheetLisa Aichholz EVENT AV OPERATOR Work Phone: NOMS CWM FMStart: 08-12-2024 End: 90-77-3825Zbonrumf Result EncounterLisa Derrickhholz EVENT AV OPERATOR Work Phone: NOMS External Department UnsolicitedStart: 08-05-2024 End: 19-00-8906Aeifol OnlyBrittany Groves EVENT AV OPERATOR Work Phone: NOOC CWM FMComment on above:B12 deficiency (Primary Dx); Iron deficiency anemia, unspecified iron deficiency anemia typeStart: 08-01-2024 End: 71-18-3665Jttloyujx Result EncounterBrittany Groves EVENT AV OPERATOR Work Phone: noms External Department UnsolicitedStart: 08-01-2024 End: 70-25-0512Zaqrsryra Result EncounterBrittany Groves EVENT AV OPERATOR Work Phone: noms External Department UnsolicitedStart: 07-31-2024 End: 43-05-4143Ghbzih outpatient visit 15 minutesBrittany Groves EVENT AV OPERATOR Work Phone: NOUH CWM FMComment on above:Iron deficiency anemia secondary to inadequate dietary iron intake (Primary Dx); Fibromyalgia; Psychophysiological insomnia; BMI 34.0-34.9,adultStart: 07-31-2024 End: 82-33-3740iabylwkhdkKCLOAILU FITZPATRICKNot AvailableStart: 07-31-2024 End: 54-97-6663Rparhl flowsheetBrittany Groves EVENT AV OPERATOR Work Phone: NOMS CWM FMStart: 07-31-2024 End: 09-80-7699Lqgvrd flowsheetBrittany Groves EVENT AV OPERATOR Work Phone: NOMS CWM FMStart: 07-25-2024 End: 10-67-7324JuwdisWsaabbcb Groves EVENT AV OPERATOR Work Phone: NOMS CWM FMComment on above:Psychophysiological insomniaStart: 06-25-2024 End: 52-87-0030OrpqvbKqlqdfbj Groves EVENT AV OPERATOR Work Phone: NOMS CWM FMComment on above:Psychophysiological insomniaStart: 06-11-2024 End: 89-47-7202Krfzzr OnlyBrittany Groves EVENT AV OPERATOR Work Phone: NOMS CWM FMComment on above:Fibromyalgia (Primary Dx) Start: 06-03-2024 End: 21-25-7587RektzfGbybovix Groves EVENT AV OPERATOR Work Phone: NOMS CWM FMComment on above:FibromyalgiaStart: 05-27-2024 End: 84-88-7993Oadcsa OnlyBrittany Groves EVENT AV OPERATOR Work Phone: NOMS CWM FMComment on above:Psychophysiological insomnia (Primary Dx)Start: 04-18-2024 End: 10-37-2693enducwfgoxQV Tyson Collazo Work Phone: [facility] Work Phone: Start: 04-18-2024 End: 63-28-1032Pvccjgn encounter procedureMD Tyson Collazo Work Phone: [facility] [address] Work Phone: Start: 04-10-2024 End: 16-54-4433Pdzgkr outpatient visit 15 minutesBrmanasa Groves EVENT AV OPERATOR Work Phone: NOMS CWM FMComment on above:Psychophysiological insomnia (Primary Dx); Fibromyalgia; Constipation, unspecified constipation typeStart: 04-10-2024 End: 79-16-0841Lldlat flowsheetBrittany Groves EVENT AV OPERATOR Work Phone: NOMS CWM FMStart: 04-10-2024 End: 72-86-1146Gczgaq flowsheetBrittany Groves EVENT AV OPERATOR Work Phone: NOMS CWM FMStart: 03-18-2024 End: 61-56-7367kkayqpyrqcBkbwbfn A. MouchliFacility:Ron DHStart: 03-18-2024 End: 58-27-3892Ftxbkdz encounter procedureRno Palomares [phone]-GhcyvVan [facility] Start: 03-13-2024 End: 89-02-4513GsscgqRbohjtwgKeely Groves EVENT AV OPERATOR Work Phone: noms CWM FMComment on above:Fibromyalgia (Primary Dx) Start: 03-12-2024 End: 98-52-0175Wkhocn outpatient visit 15 minutesAngel Luis Groves EVENT AV OPERATOR Work Phone: NOTY CWM FMComment on above:Constipation, unspecified constipation type (Primary Dx); FibromyalgiaStart: 03-12-2024 End: 25-83-2096Mmuzyb flowsheetAngel Luis Groves EVENT AV OPERATOR Work Phone: noms CWM FMStart: 03-12-2024 End: 16-96-2147Nogzuc carlheetAngel Luis Groves EVENT AV OPERATOR Work Phone: noms CWM FMStart: 54-61-3255bacbsejmzkBwbiuvx Mouchli Facility:[facility] DHStart: 34-02-5638Hoj-patient / Non-visitMD Tyson Collazo Work Phone: [facility] Work Phone: Start: 94-71-3741IzozrgNygiuk Fawwad MD Work Phone: noms CWM FMComment on above:Bipolar disorder with severe depression (CMS/HCC)Start: 07-19-2023 End: 69-34-3175oasvjoecmeMfqhwej R NILLFacility:CD:[id number]: 06-07-2023 End: 71-39-7492nsnylqewdhCmvidwy R NILLFacility: MileevueStart: 06-07-2023 End: 99-21-8970Vvrpytq encounter procedureMichael R NILL General Surgery Nill/Said Buskirk Start: 87-63-7524npyyltyjzfDnrghcd MouchliFacility: Marytart: 09-19-6016zvhyxylwwqElixgos MouchliFacility: Sherrytart: 04-07-2023 End: 43-48-5854dkwhdkdlnoZHLEWJPTSt. Charles Hospital Start: 04-06-1321uisrrgaqgrWJIVTRXHSt. Charles Hospital Start: 05-31-2022 End: 42-78-5065ntmprtqpgaYB TAMIKO Dickens WESTFacility:Z5Midgj: 05-10-2022 End: 51-30-5346qptjmpjjohNC ELLIOT JOSEFacility:O2Emjrq: 04-19-2022 End: 88-34-5970vzqkmltvztOPRVVESA CULLENFacility:B4Iexqv: 03-29-2022 End: 00-15-4505abckqwjaxuXCZPWEYR CULLENFacility:D2Putbj: 03-10-2022 End: 25-80-3987sjbjmlqqwhNLFEK D [facility]OSPITALFacility:R1Pqueo: 50-80-4169Keioioobb for preprocedural cardiovascular examinationPETER D Infirmary [facility] Hospital HospitalStart: 29-55-3714Bkjyazgov for preprocedural laboratory examinationPETER D [facility]irm[facility] Hospital HospitalStart: 03-03-2022 End: 42-13-8625qgybpwgedmFUVDQ D HIGHLANDERFacility:O7Vwwqh: 03-03-2022 End: 00-13-7436Wccqotsfi for preprocedural laboratory examinationPETER D [facility] HOSPITALFacility:C5Quhhw: 02-22-2022 End: 22-55-0844fnozwdxuayRCKUE D HIGHLANDERFacility:M7Druqk: 02-09-2022 End: 79-18-9791lvvnifjtllIWHYF D HIGHLANDERFacility:K4Kixop: 08-30-2021 End: 98-44-9021wbwuqqjftqWstvn Ginty Other [facility] Arnica Other Start: 11-67-5156Qieixk outpatient visit 15 minutes Kristin [facility] ClydeStart: 06-07-2021 End: 84-91-5046uajautekxaKE ROBERTO HOUSEFacility:M4Feqrn: 11-14-2018 End: 36-88-6457Itqprjt encounter procedureDEFAULT PHYSICIANFacility:[facility] Procedures DateProcedureProcedure DetailPerforming ClinicianStart: 14-78-0428Bmaei dip stick/tablet rgnt non-auto w/o micrscpNadine Odell Asif MD Work Phone: Start: 83-17-2200JZWILQD POST VOID RESIDUALNadine Odell Asif MD Work Phone: Start: 04-09-2025 End: 42-83-6896Xifnqjumyohir w/patient 60 minutesGAD (generalized anxiety disorder)Rohan Waters LPCComment on above:JESSIKA (generalized anxiety disorder) ; Severe episode of recurrent major depressive disorder, without psychotic features (HCC); PTSD (post-traumatic stress disorder)Start: 03-25-2025 End: 50-94-4910Cxkqsgehtktqx w/patient 60 minutesGAD (generalized anxiety disorder)Rohan Waters LPCComment on above:JESSIKA (generalized anxiety disorder) ; Severe episode of recurrent major depressive disorder, without psychotic features (HCC); PTSD (post-traumatic stress disorder)Start: 03-06-2025 End: 19-82-4315Jvgxpzsjtld diagnostic evaluationGAD (generalized anxiety disorder)Rohan Waetrs LPCComment on above:JESSIKA (generalized anxiety disorder) ; Severe episode of recurrent major depressive disorder, without psychotic features (HCC); PTSD (post-traumatic stress disorder)Start: 36-76-3504WCJ CBC WITH AUTO DIFFLisa Sumit CAMARGO Work Phone: Start: 21-03-9565PIVCRYCHB BLOOD PRESSUREGeneric External Data ProviderStart: 04-71-6756PW FOOT LT MIN 3VGeneric External Data ProviderStart: 50-30-7350EE LUMBAR SPINE WO CONGeneric External Data Provider Start: 45-31-1524Yjl spinal canal cervical w/o contrast matrlGeneric External Data ProviderStart: 01-22-2025 End: 34-14-3450Xwjiqefdgxu diagnostic eval w/medical servicesGAD (generalized anxiety disorder)[facility]ice [facility]as [facility] Work Phone: comment on above:JESSIKA (generalized anxiety disorder) ; Severe episode of recurrent major depressive disorder, without psychotic features (HCC); PTSD (post-traumatic stress disorder) ; Insomnia, unspecified type; Sleep apnea, unspecified type; Encounter for drug screeningStart: 38-08-8265VUA CBC WITH AUTO DIFFLisa Aicpiperholz EVENT AV OPERATOR Work Phone: Start: 61-21-4637XQR,APTIMA HPV,AGE GDLNLisa Shalaholz EVENT AV OPERATOR Work Phone: Start: 80-77-4363Hcrrbpubioo observation [Identifier] in Cervix by Cyto stainLisa Arana EVENT AV OPERATOR Work Phone: Start: 68-73-2052FU TOMOSYNTHESIS SCREENING BILisa Sumit EVENT AV OPERATOR Work Phone: Start: 81-84-5804IlnoigfbzumHykx Sumit EVENT AV OPERATOR Work Phone: Start: 32-71-7157ELE CBC WITH AUTO DIFFLisa Aichholz EVENT AV OPERATOR Work Phone: Start: 78-53-1053MY FOOT LT WO CONGeneric External Data ProviderStart: 73-05-8045LS FOOT LT MIN 3VGeneric External Data Provider Start: 33-40-0917MWHEKPS WOUND/ULCER (HTRX)Pascale Arana EVENT AV OPERATOR Work Phone: Start: 07-55-7149XOB CBC WITH AUTO DIFFBrittany Groves EVENT AV OPERATOR Work Phone: Start: 39-49-5869UatafvigrqkMqfwlb Fawwad MD Work Phone: Start: 46-03-1471RdcxcppjifabjhknzohmshmhbfEwwumye NILL Start: 21-34-8329Heeuzb of stomachMichael NILL Start: 31-37-0757Cvmymmbnmmmmp cystoscopyMichael NILL Start: 00-28-1272Ayytycbpvuesi cystoscopyMichael NILL CholecystectomyMichael NILL H/O: surgeryHistory of reconstructive repair of rectoceleTanya L Muniz DO Work Phone: H/O: surgeryHistory of reconstructive repair of rectoceleNadine Odell Asif MD Work Phone: H/O: surgeryHistory of reconstructive repair of rectoceleKendal Shahab CMAH/O: surgeryHistory of reconstructive repair of rectoceleNadine C Laya WELLER Work Phone: Ligation of fallopian tubeMichael NILL Repair of cystoceleMichael NILL Plan of Treatment DateCare ActivityDetailAuthorStart: 33-48-7625Cxuvdjxwi for malignant neoplasm of colonNOMS HealthcareStart: 62-71-9598Ixlartcyy for malignant neoplasm of cervixNOMS HealthcareStart: 56-84-2017Fyxqn BMI ScreeningAdult BMI Screening [facility] SystemStart: 63-87-7087Cqmqpgo ScreeningTobacco Screening [facility] SystemStart: 25-65-4012Rctuejc ScreeningTobacco Screening [facility] SystemStart: 15-95-3467Ymsga BMI ScreeningAdult BMI Screening [facility] SystemStart: 66-37-0759Cdjzuyx ScreeningTobacco Screening [facility] SystemStart: 64-18-8675Uzowr BMI ScreeningAdult BMI Screening [facility] SystemStart: 32-74-3749Gxkdfmx ScreeningTobacco Screening [facility] SystemStart: 18-35-5055Tyszsrgrc for malignant neoplasm of breastMammogramNOMS HealthcareStart: 06-25-2025 End: 58-02-8533Cyaciat encounter iijjxfioh08/03/2025 2:00 PM EST Office Visit [facility] [address] [place] [address] [place] [address] Shay Frias, PHYSICIAN LIAISON-FARMHAND [address] [facility] [address] [id number] [facility] HealthStart: 06-02-2025 End: 97-03-9133Wzytmzh encounter procedureNOMS [facility] Behavioral HealthComment on above:ArrivedStart: 05-28-2025 End: 33-61-7598Tvcjnpp encounter /05/2025 2:30 PM EST Procedure visit [facility] [address] [facility] [address] [place] [phone] Jovon Asif MD [address] [facility] [address] [place] [address] [facility] UrogynStart: 05-21-2025 End: 78-78-8608Ogrhcr Work05/21/2025 4:30 PM EDT Social Work [facility] [address] [facility] [address] [place] [id number] Rohan Waters LPCNOMS [facility] HealthStart: 05-19-2025 End: 75-43-6312Lkzxtym encounter vtjrygugq83/27/2025 3:30 PM EDT Office Visit [facility] [address] [facility] [address] [place] [phone] Shay Frias, PHYSICIAN LIAISON-FARMHAND [address] [facility] [address] [id number] [facility] HealthStart: 04-30-2025 End: 24-38-5400Imjcnvb encounter fftzaxsmt80/08/2025 4:30 PM EDT Office Visit [facility] [address] [place] [place] [phone] Pascale Arana NP [address] [place] [address] NOMScottie MONSON FMStart: 88-55-1312Kselutz referralBerger Hospital Work Phone: Start: 04-24-2025 End: 09-94-1654Nyqtom Work04/24/2025 4:30 PM EDT Social Work [facility] [address] [place] [place] [phone] Rohan Waters LPCNOMS [facility] HealthStart: 04-09-2025 End: 29-23-9359Wfpgaa WorkNONJ [facility] HealthComment on above:Arrived Start: 04-03-2025 End: 04-42-3219Fhffqfrqenmc consultation with dyhfasv4004/03/2025 9:00 AM EDT Telemedicine [facility] [address] [place] [phone] Eunice Dias, PMHNP- [address] [place] [phone] [facility] HealthStart: 04-02-2025 End: 40-10-4621Rvwwkwh encounter yixxlchjs31/10/2025 3:00 PM EDT Office Visit [facility] [address] [place] [address] Jovon Asif MD [address] [place] [address] [facility] [place] [address] [facility] - UrogynStart: 03-25-2025 End: 31-12-8929Exmxbq WorkNONJ Harshil Behavioral HealthComment on above:Arrived Start: 16-00-4617Iasrnovua vaccinationNONJ HealthcareStart: 03-06-2025 End: 34-96-0519Vvyamy WorkNOMS CI BHComment on above:ArrivedStart: 02-25-2025 End: 01-06-3156UOS W Auto Differential panel - BloodCBC and differential Lab Routine Iron deficiency anemia secondary to inadequate dietary iron intake Expected: 02/25/2025 (Approximate), Expires: 02/25/2026[facility] Work Phone: Comment on above:Expected: 02/25/2025 (Approximate), Expires: 02/25/2026Start: 02-25-2025 End: 06-00-9427Wrkx and Iron binding capacity panel - Serum or PlasmaIron level Lab Routine Iron deficiency anemia secondary to inadequate dietary iron intake Expected:02/25/2025 (Approximate), Expires: 02/25/2026[facility]OM[facility] HealthcareComment on above:Expected: 02/25/2025 (Approximate), Expires: 02/25/2026Start: 02-25-2025 End: 30-96-2324Cuqxzae encounter qogiycwjk20/05/2025 11:30 AM EDT Office Visit [facility] CWM [address] [place] [address] Pascale Arana, EVENT AV OPERATOR [address] [place] [address] NOMS TRISTAN FMStart: 02-24-2025 End: 18-86-8876Nrjkoyi encounter procedureNOMS CI BHStart: 02-05-2025 End: 60-25-3399Gnbdxdc encounter tvzvyuldc64/16/2025 3:20 PM EDT Office Visit [facility] ERMIAS [address] [place] [address] Pascale Arana, EVENT AV OPERATOR [address] [place] [address] NOMS CW FMStart: 01-22-2025 End: 98-09-7033Lfbmkes encounter procedureNOMS CI BHComment on above:Bipolar disorder with severe depression (HCC)Start: 01-07-2025 End: 67-81-9615MNU W Auto Differential panel - BloodCBC and differential Lab Routine Iron deficiency anemia secondary to inadequate dietary iron intake Expected: 01/07/2025 (Approximate), Expires: 01/07/2026[facility] Work Phone: Comment on above:Expected: 01/07/2025 (Approximate), Expires: 01/07/2026Start: 01-07-2025 End: 64-37-5455Mpopqtvir (Vitamin B12) [Mass/volume] in Serum or PlasmaVitamin B12 Lab Routine B12 deficiency Iron deficiency anemia secondary to inadequate dietary iron intake Expected: 01/07/2025 (Approximate), Expires: 01/07/2026[facility] HealthcareComment on above:Expected: 01/07/2025 (Approximate), Expires: 01/07/2026Start: 01-07-2025 End: 40-83-9924Tavacozw [Mass/volume] in Serum or PlasmaFerritin Lab Routine Iron deficiency anemia secondary to inadequate dietary iron intake Expected: (Approximate), Expires: 01/07/2026[facility] HealthcareComment on above: Expected: 01/07/2025 (Approximate), Expires: 01/07/2026Start: 01-07-2025 End: 53-28-9765Zscj + transferrin + TIBCIron + transferrin + TIBC Lab Routine Iron deficiency anemia secondary to inadequate dietary iron intake Expected: 01/07/2025 (Approximate), Expires: 01/07/2026[facility] HealthcareComment on above: Expected: 01/07/2025 (Approximate), Expires: 01/07/2026Start: 01-06-2025 End: 29-11-5241Xmrhtra encounter procedureNOMS CWM FMComment on above: Gastroesophageal reflux disease, unspecified whether esophagitis present (Primary Dx); Class 1 obesity due to excess calories without serious comorbidity with body mass index (BMI) of 32.0 to 32.9 in adult; Cigarette nicotine dependence without complicationStart: 11-20-2024 End: 24-04-4425Sjdwtyw encounter fahpkukua71/30/2025 3:20 PM EDT Office Visit [facility] C[facility] FM [address] [place] [address] Pascale Arana, EVENT AV OPERATOR [address] [place] [address] N[facility] FMStart: 11-20-2024 End: 33-92-5616CTAD PREP TIS PAP AND HR HPV DNATHIN PREP TIS PAP AND HR HPV DNA Pathology and Cytology Routine Well woman exam with routine gynecological exam Expected: 11/20/2024 (Approximate), Expires: 11/20/2025[facility] Work Phone: Comment on above:Expected: 11/20/2024 (Approximate), Expires: 11/20/2025Start: 10-23-2024 End: 72-09-8923Kofscyp encounter gltdfufww40/02/2025 5:30 PM EDT Procedure Visit [facility] [address] [place] [address] Pascale Arana, MARY JO [address] [place] [address] NOMS [facility] FMStart: 01-43-6820Kxnackisk vaccinationInfluenza Vaccine (#1)[facility] HealthcareComment on above:Postponed from 03/24/2024 (Patient Refused)Start: 10-04-2024 End: 03-20-1072PDO W Auto Differential panel - BloodCBC and differential Lab Routine B12 deficiency Iron deficiency anemia, unspecified iron deficiencyanemia type Expected: 10/04/2024 (Approximate), Expires: 08/06/2025[facility] Work Phone: Comment on above:Expected: 10/04/2024 (Approximate), Expires: 08/06/2025Start: 10-04-2024 End: 84-18-0702Ppyijurmt (Vitamin B12) [Mass/volume] in Serum or PlasmaVitamin B12 Lab Routine B12 deficiency Iron deficiency anemia, unspecified iron deficiency anemia type Expected: 10/04/2024 (Approximate), Expires: 08/06/2025 [facility] HealthcareComment on above:Expected: 10/04/2024 (Approximate), Expires: 08/06/2025Start: 10-04-2024 End: 30-75-4603Fwqcegmj [Mass/volume] in Serum or PlasmaFerritin Lab Routine B12 deficiency Iron deficiency anemia, unspecified iron deficiency anemia type Expected: 10/04/2024 (Approximate), Expires: 08/06/2025[facility] HealthcareComment on above:Expected: 10/04/2024 (Approximate), Expires: 08/06/2025Start: 10-04-2024 End: 64-58-3500Fqro + transferrin + TIBCIron + transferrin + TIBC Lab Routine B12 deficiency Iron deficiency anemia, unspecified iron deficiency anemia type Expected: 10/04/2024 (Approximate), Expires: 08/06/2025[facility] HealthcareComment on above:Expected: 10/04/2024 (Approximate), Expires: 08/06/2025Start: 10-02-2024 End: 21-94-9039Fgjtsto encounter procedureNOMS CWM FMComment on above:Class 1 obesity due to excess calories without serious comorbidity in adult, unspecified BMI (Primary Dx); Iron deficiency anemia secondary to inadequate dietary iron intake; Cigarette nicotine dependence without complication; Encounter for screening mammogram for malignant neoplasm of breast; B12 deficiencyStart: 10-02-2024 End: 59-68-6019TVE W Auto Differential panel - BloodCBC and differential Lab Routine Iron deficiency anemia secondary to inadequate dietary iron lfwxmyV65 deficiency Expected: 10/02/2024 (Approximate), Expires: 10/02/2025[facility] HealthcareComment on above:Expected: 10/02/2024 (Approximate), Expires: 10/02/2025Start: 10-02-2024 End: 85-42-9617Tnvipuzhp (Vitamin B12) [Mass/volume] in Serum or PlasmaVitamin B12 Lab Routine B12 deficiency Expected: 10/02/2024 (Approximate), Expires: 10/02/2025[facility] HealthcareComment on above:Expected: 10/02/2024 (Approximate), Expires: 10/02/2025Start: 10-02-2024 End: 43-15-8699Ngzxgwiz [Mass/volume] in Serum or PlasmaFerritin Lab Routine Iron deficiency anemia secondary to inadequate dietary iron intake Expected: (Approximate), Expires: 10/02/2025[facility] HealthcareComment on above: Expected: 10/02/2024 (Approximate), Expires: 10/02/2025Start: 10-02-2024 End: 15-14-6815Qiyg + transferrin + TIBCIron + transferrin + TIBC Lab Routine Iron deficiency anemia secondary to inadequate dietary iron intake Expected: 10/02/2024 (Approximate), Expires: 10/02/2025[facility] HealthcareComment on above: Expected: 10/02/2024 (Approximate), Expires: 10/02/2025Start: 10-02-2024 End: 77-24-2643VZ Breast - bilateral ScreeningBilateral screening mammogram Imaging Routine Encounter for screening mammogram for malignant neoplasm of breast Expected: 10/02/2024 (Approximate), Expires: 12/02/2025[facility] Work Phone: Comment on above:Expected: 10/02/2024 (Approximate), Expires: 12/02/2025Start: 09-04-2024 End: 72-44-8879Cpfmjiq encounter procedureNOMS Lashaun FMComment on above:Arrived Start: 08-12-2024 End: 11-53-5017Wdwhnfa encounter itkwrlmpr17/20/2025 4:00 PM EST Office Visit N[facility] CW FM [address] [place] [address] Pascale Arana NP [address] [place] [address] ArrivedNOMERCY H[facility] – KINGFISHERLashaun FMComment on above:ArrivedStart: 08-12-2024 End: 26-87-2902QZWEUHACJRV WOUND (HTRX)SUPERFICIAL WOUND (HTRX) Lab Routine Cutaneous abscess of abdominal wall Expected: 08/12/2024 (Approximate), Expires: 08/12/2025[facility] Work Phone: Comment on above:Expected: 08/12/2024 (Approximate), Expires: 08/12/2025Start: 07-31-2024 End: 35-41-2735Eqbklhr encounter procedureNOMS [facility] FMComment on above:Arrived Start: 07-31-2024 End: 70-83-9267Drmkuxhkm (Vitamin B12) [Mass/volume] in Serum or PlasmaVitamin B12 Lab Routine Iron deficiency anemia secondary to inadequate dietary iron intake Expected: 07/31/2024 (Approximate), Expires: 07/31/2025[facility] Comment on above:Expected: 07/31/2024 (Approximate), Expires: 07/31/2025Start: 07-31-2024 End: 16-71-6584Wtrhvubc [Mass/volume] in Serum or PlasmaFerritin Lab Routine Iron deficiency anemia secondary to inadequate dietary iron intake Expected: (Approximate), Expires: 07/31/2025[facility] HealthcareComment on above: Expected: 07/31/2024 (Approximate), Expires: 07/31/2025Start: 07-31-2024 End: 11-43-0686Vcds + transferrin + TIBCIron + transferrin + TIBC Lab Routine Iron deficiency anemia secondary to inadequate dietary iron intake Expected: 07/31/2024 (Approximate), Expires: 07/31/2025[facility] HealthcareComment on above: Expected: 07/31/2024 (Approximate), Expires: 07/31/2025Start: 07-10-2024 End: 62-37-0561Gxirjkn encounter dyqdntscj85/18/2024 4:30 PM EST Office Visit [facility] ERMIAS FM [address] [place] [address] Angel Luis Groves NP [address] [place] [address] NOMScottie MONSON FMStart: 06-05-2024 End: 52-26-5448Ebjseml encounter /13/2024 5:30 PM EST Office Visit [facility] ERMIAS FM [address] [place] [address] Angel Luis Groves, EVENT AV OPERATOR [address] [place] [address] [facility]OMS CWM FMStart: 04-10-2024 End: 14-65-8421Sxmbotd encounter procedureNOMS CWM FMComment on above:Arrived Start: 19-29-7290Zkofzbnuf vaccinationInfluenza Vaccine (#1)[facility] Start: 03-12-2024 End: 01-13-9895Odsagov encounter ldjoqojti63/20/2024 3:30 PM EDT Office Visit NOMS CWLashaun FM [address] [place] [address] Angel Luis Groves EVENT AV OPERATOR [address] [place] [address] ArrivedNOMS CWM FMComment on above:ArrivedStart: 11-13-2023 End: 74-87-7320Gahfvcz encounter sexcmfthr48/22/2024 4:45 PM EDT Office Visit [facility] CWM IM [address] [place] [address] Shaikh Main MD [address] [place] [address] NOM[facility] CWM IMStart: 76-93-5227Vzqwpbtou vaccinationInfluenza Vaccine (#1)[facility] HealthcareStart: 89-59-0802Rrnizuqbanjcpu of varicella zoster vaccineZoster (Shingles) Vaccine (1 of 2)[facility] iSirona SystemStart: 95-05-1861Thglverhe for malignant neoplasm of breastMammogramNOMS Healthcare Start: 01-10-5994Hnegjtbre for malignant neoplasm of cervixNOMS HealthcareStart: 72-07-1182Izbwaohsp for malignant neoplasm of cervixPap SmearNOMS Healthcare Start: 14-70-6390BWyZ,Tdap and Td Vaccines (1 - Tdap)DTaP,Tdap and Td Vaccines (1 - Tdap)[facility] SystemStart: 34-68-0807Stnwd BMI Follow Up PlanAdult BMI Follow Up PlanUNC Health Rextart: 37-48-1415Noctqkmtbr Screening Depression ScreeningUNC Health Rextart: 99-18-9346Gueulypqd for malignant neoplasm of colonCASTLEVIEW HOSPITAL HealthcareStart: 95-31-1576Iwbtzxass for malignant neoplasm of lungLung Cancer Screening Shared Decision MakingCASTLEVIEW HOSPITAL HealthcareStart: 74-31-2940Ylexpfm CounselingTobacco CounselingOhioHealth Dublin Methodist HospitalCBC W Auto Differential panel - BloodCBC and differential Lab Routine Iron deficiency anemia secondary to inadequate dietary iron intakeOrdered: 07/31/2024[facility] Work Phone: Comment on above:Ordered: 07/31/2024omprehensive metabolic 2000 panel - Serum or PlasmaAdams County Regional Medical CenterDRUG TOX MONITORIGN 6 W/ CONF,URINEDRUG TOX MONITORIGN 6 W/ CONF,URINE Lab Routine Encounter for drug screening Ordered: 01/22/2025[facility] Work Phone: comment on above:Ordered: 01/22/2025Electromyography [facility] CenterPatient referralBerger Hospital Work Phone: Sjogrens syndrome-A extractable nuclear Ab [Units/volume] in [facility] Hospitaljog[facility] syndrome-B extractable nuclear Ab [Units/volume] in [facility] Immunizations Immunization DateImmunizationNotesCare ProviderFacilityNEGATED: Highlighted row has not occurred!97-11-3512xgramlfok virus vaccine, unspecified formulation Segun [facility] Payers DatePayer CategoryPayerPolicy [id number]-[id number] Health [id number] Managed Care - POS [id number]195Ciccrvj Care HMO (unspecified)1.2.840.035129.1.13.693.2.7.3.433[id number] 2.16.840.1.205011.3.579.2.39484-35-2110Qlvxbyl7631165 2.16.840.1.509590.3.579.2.61157-50-3569Chbgdjt3090385 2.16.840.1.700042.3.579.2.50747-51-5751Anmmgsx0516429 2.16.840.1.739360.3.579.2.94142-05-4345Zxrlbzf5462961 2..840.1.326817.3.579.2.87703-26-5560Hzqxkzv7957479 2.840.1.177009.3.579.2.49561-90-6202Mjiqzlt3634964 2.840.1.091568.3.579.2.49796-61-0355Icujswl5404272 2.840.1.311116.3.579.2.79775-36-3724Cyyksak3081116 2..840.1.307953.3.579.2.28682-77-4052Enooueg0574447 2.840.1.575444.3.579.2.95188-02-0815Nrqswgh58233232 2.16.840.1.103487.3.579.2.94955-08-2651Zfkulff77498041 2.16.840.1.862253.3.579.2.64364-73-5199Fszcrxc19536817 2.16.840.1.113622.3.579.2.03100-45-1279Odvllea62045743 2.16840.1.112471.3.579.2.05500-68-0960Mpgoulj92851582 2.840.1.855532.3.579.2.98698-42-8990Bozcmpp676018582 2.16840.1.737920.3.579.2.77678-51-6961Zkthkxa943875042 2.0.1.792116.3.579.2.70934-02-7998Adbvyrz525896259 2.840.1.204062.3.579.2.93278-57-5627Jcfdssu217550895 2..1.407292.3.579.2.892542-72-2757Mxdyuma930480889 2..1.080257.3.579.2.438088-50-2103Pspvxcn580895050 2..1.949773.3.579.2.560189-98-4502Cnfqmyp89828224 2..1.460577.3.579.2.700690-33-5975Ucjylyr43933056 2..1.331081.3.579.2.090623-65-4359Eiokrar09592488 2..1.932757.3.579.2.001595-75-3983Qhbqjsx60546326 2..1.523024.3.579.2.589662-85-7740Yvwnqoj49663126 2..1.263684.3.579.2.100261-72-9886Qxcoqus18204941 2.0.1.610761.3.579.2.858506-09-6400Sscohhf78785274 2.0.1.393299.3.579.2.597525-14-6919Szildfl39252126 2.16.840.1.914630.3.579.2.132074-41-9681Typujxo92576203 2..840.1.389734.3.579.2.084913-90-9948Alagmrd4529230 2..840.1.683588.3.579.2.888637-06-3010Rpwgqyf4983001 2..0.1.250749.3.579.2.626392-66-1085Ghazphr5234905 2..0.1.628704.3.579.2.938969-09-2242Wsnldof5872432 2..840.1.702689.3.579.2.271435-70-5912Atarebx0610110 2.0.1.757737.3.579.2.986958-89-6495Kmbfnmj3238122 2.0.1.633426.3.579.2.598293-16-2590Rzdmqlf Health EvlqnnmsbS899979771 2.0.1.819393.70LssucgpBymfhnz28586717 2.0.1.405677.3.579.2.531 Social History DateTypeDetailFacilityUnknown if ever smokedNort Arnica Other Start: 08-07-2023 End: 64-43-2352Dft [facility] At [facility] Hospitaltart: 06-07-2023 End: 55-87-6169Miixzhy smoking statusHeavy tobacco smoker (finding)[facility]vueStart: 41-20-7342Chjovkk smoking statusFormer smokeless tobacco user, quit more than 30 days agoGeneral Surgery BellevueStart: 07-04-2023 End: 14-33-7567Wkbwsil smoking status NHISSmokes tobacco dailyNOMS Healthcare Start: 57-91-2958Feudthc of tobacco useCigarette SmokerNONJ HealthcareStart: 07-04-2023 End: 91-38-8708Tjxfwawbqu smoked current (pack per day) - Pokasvns0ANZB HealthcareStart: 07-04-2023 End: 90-44-3073Sswucsz use and exposureSmokeless tobacco non-userNONJ Healthcare Start: 08-14-2023 End: 40-17-5037Ozfwltq intakeLifetime non-drinker (finding)NOM HealthcareWithin the last year, have you been [...] got money to buy more.Never trueNOMS HealthcareStart: 74-32-2693Ayhpnpr CommentThinking about quittingNOMS HealthcareStart: 79-58-2733Npwgbsh Commentcaffeine: 3-4 cups per dayNONJ HealthcareStart: 46-30-9457Pdx Assigned At BirthNot on fileNOMS HealthcareStart: 52-37-3082Aqp Assigned At [facility] HospitalHistory of tobacco usePassive smokerNONJ HealthcareStart: 01-22-2025 End: 50-67-6094Hhhmnfksc beverage intakeEx-drinker (finding)[facility] Start: 69-87-7972EkzSgpblt (finding)[facility] SystemStart: 02-24-2025 End: 41-59-8272Ncokdbvub beverage intakeCurrent drinker of alcohol (finding) [facility] Goals DatePatient GoalDesired Activity/StatePersonal health goal Functional Status YwchLbmtryzvlxZzowivSmestlga50-25-6925Delbfxuwgfw anxiety disorder 7 item (JESSIKA-7)[facility] HospitalTihbydgolv13-05-9735Ucdsayy Health Questionnaire 2 item (PHQ-2) [Reported][facility] HospitalBknjrwpyxt60-02-6836IHU-7 quick depression assessment panel [Reported.PHQ][facility] HospitalLjyebsgybl54-91-3570Egrneumcxl StatusN/[facility] Jpxsdt96-97-0658Cnphorksxw StatusN/AGeneral Surgery [facility] Clinical Notes 08-30-2021 to 05-28-2025 Note Date & BrxeQtcpDzaclnzh24-65-0780 History of Present illness Narrative* Jovon Asif MD - 05/28/2025 2:30 PM EST CC: UDS HPI: Ms. Rutherford is a 55-year-old, referred [...] diarrhea, fecal incontinence. She is SA. 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 Past [...] mL: No leakage VLPP and CLPP at SNF: No leakage UPP at 50 mL was 95 cm H2O UPP at SNF was 81 cm H2O MUCP (maximal urethral [...] good candidate for minimally invasive hysterectomy with tuluksak tissue repair. Risks, benefits, alternatives discussed at [...] ligament suspension,anterior colporrhaphy, cystoscopy. documented in this encounterOhioHealth Dublin Methodist Hospital10-29-2025 Telephone encounter Note* Telephone Encounter - Rohan Waters LPC - 05/21/2025 2:08 PM EDT Clinician spoke to client over the phone, explained resignation, offered transfer/referral options,and warm line phone number. Client shared that she plans to discuss her options further at her nextmedication management appointment. Clinician encouraged client to call [facility] as needed. [facility] HospitalWkwmqemhqz02-82-6559 Miscellaneous Notes* Telephone Encounter - Rohan Waters LPC - 05/21/2025 2:08 PM EDT Clinician spoke to client over the phone, explained resignation, offered transfer/referral options,and warm line phone number. Client shared that she plans to discuss her options further at her nextmedication management appointment. Clinician encouraged client to call [facility] as needed. documented in this encounterHermann Area District HospitalUesdmismmi70-53-5608 Miscellaneous Notes* Telephone Encounter - Areli Gudino [...] to their preferred pharmacy. documented in this encounterOhioHealth Dublin Methodist Hospital10-10-2025 Telephone encounter Note* Telephone Encounter - Areli Gudino CMA - 05/02/2025 1:01 PM EDT Patient called to say she is on Tolterodine for her OAB but is having worse incontinence. She has UDS scheduled in May but her PCP wants to see if she can be put on something else as the currentmed is the highest dose. Please advise. [facility]10-10-2025 Telephone encounter Note* Telephone Encounter - Jovon Asif MD - 05/02/2025 1:01 PM EDT Myrbetriq 50 milligrams once daily, dispense 30 tablets, 5 refills. [facility]10-10-2025 Telephone encounter Note* Telephone Encounter - Areli Gudino CMA - 05/02/2025 1:01 PM EDT Called patient and sent in Myrbetriq to their preferred pharmacy. [facility]09-11-2025 History of Present illness Narrative* Eunice Dias, PMHNP-BC - 04/03/2025 9:00 AM EDT Images from the original note were not included. HPI: Talia Rutherford is a 54 y.o. female with a history of Fibromyalgia, gastric bypass (2019), sleep apnea (does not wear CPAP), MDD, JESSIKA, PTSD, and Insomnia. Patient is here today for follow-up via telehealth. Location of patient: Home; located in [place] Location of provider: Office; located in [place], [place] Patient seen via: [facility]; audio and video utilized Reason for [...] NORM Marquez-BC as Nurse Practitioner (Behavioral Health) Rohan Waters LPC as Vegetable Farming Supervisor (Behavioral Health) PSYCHIATRIC REVIEW OF SYMPTOMS AND [...] she will need to follow-up with other behavioral psychologist in the future due to medication adjustment and my upcoming maternity leave. She is also aware that she can call the office if she needs samples of Vraylar. I updated nursing staff and Shay on treatment plan. OARRS report checked on [...] treatment. - RTC in 6 weeks with Shay. Discussed any medication changes and follow-up plan with patient. Encouraged patient to call office sooner if symptoms worsen or if any questions/concerns arise. Patient was seen Televisit - Audio and Visual, Total time spent with patient was 15 minutes, which includes reviewing chart documents, previous notes/records, counseling and discussion with patient and/or coordination of care as described above. documented in this encounterHermann Area District HospitalHlrcdfnffo52-37-9424 History of Present illness Narrative* Margot Marsh DO - 04/02/2025 3:00 PM EDT SUBJECTIVE Chief Complaint: cystocele HPI Ms. Talia Rutherford is a , 54 y.o. female who is referred by Shelia Muniz DO for cystocele. The patient reports history of rectocele repair in 2021 at [facility]. She notes a bulge on a daily [...] pessary previously. Gynecology provider: Dr. Muniz. 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 She [...] given by office. Patient was given a [employer] coupon voucher to use, this is not [...] diarrhea, fecal incontinence. She is SA. 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 Past [...] with second degree uterine prolapse (Primary) - [facility] - [place], [place] - Measure post void residual 2. History of reconstructive repair of rectocele - [facility] - [place], [place] - Measure post void residual 3. Urge urinary incontinence - [facility] - [place], [place] - Measure post void residual She [...] good candidate for minimally invasive hysterectomy with tuluksak tissue repair. We will discuss further at her next visit. documented in this encounterOhioHealth Dublin Methodist Hospital09-02-2025 Evaluation note* Diagnosis Onset Date Resolution Status Admit Date Carpal tunnel syndrome of right wrist acuteSeptember 2024 8:29amCervical stenosis of spineacuteSeptember 2024 8:29amPiriformis syndrome of right sideacuteSeptember 2024 8:29am [facility] Work Phone: 1(480) 411-213409-02-2025 Evaluation note* Diagnosis Onset Date Resolution Status Admit Date Carpal tunnel syndrome of right wrist acuteSeptember 2024 8:29amCervical stenosis of spineacuteSeptember 2024 8:29amPiriformis syndrome of right sideacuteSeptember 2024 8:29amClass 1 obesity due to excess calories without serious comorbidity in adultacute October 2024 4:13pmFibromyalgiaacuteOctober 2024 4:13pmGERD without esophagitisacuteOct2024 4:13pmIDA (iron deficiency anemia)acuteOctober 2024 4:13pmNicotine dependenceacuteOctober 2024 4:13pm [facility] Work Phone: 1(107) 386-509409-02-2025 Evaluation note* Diagnosis Onset Date Resolution Status [...] 4:13pmAbdominal painacuteOctober 2024 2:21pm BloatingacuteOctober 2024 2:21pm [facility] Work Phone: 1(136) 399-897209-02-2025 Evaluation note* Diagnosis Onset Date Resolution Status [...] 2:21pmIDA (iron deficiency anemia) acuteOctober 2024 2:21pm [facility] Work Phone: 1(632) 570-725508-05-2025 History of Present illness Narrative* Pascale Arana [...] for last several weeks, she has seen behavioral psychologist, meds changed and she is now onVraylar, [...] of the risks of continued smoking: stroke, PA, all forms of cancer, lung disease, and [...] of the risks of continued smoking: stroke, PA, all forms of cancer, lung disease, and . Options for quitting smoking include: cold turkey, hypnosis, acupuncture, nicotine replacement meds(gum, lozenges, and patches), Buproprion, and Varenicline. At this time pt is encouraged to evaluate their goals for wanting to quit smoking, and reach out toprovider when ready to start this process documented in this [facility]08-05-2025 Instructions* Patient Instructions* Pascale Arana NP - 02/25/2025 11:30 AM EDT Off work RTW date 03/25/25 documented in this encounterHermann Area District HospitalXhbfinwela33-05-0932 History of Present illness Narrative* Eunice Dias, NORM-TWIN - 02/24/2025 3:00 PM EDT Images from [...] Sheis working with the pain specialist at [facility] [place] [facility] in hopes to get an epidural [...] care as described above. documented in this encounterHermann Area District [id number] History of Present illness Narrative* Shelia Muniz [...] if mesh was utilized documented in this [facility]Ohio[facility] History of Present illness Narrative* Eunice [...] siblings and him having another family in [place]. She describes her mood as sad, anxious, [...] smoking cessation Lunesta - did not work Bella[employer]ati - doesn't recall how this made her [...] (11) who also lives there. 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 Has been with [email or web address] for 15 years. She states sheis currently [...] the local ER or call Suicide Hotline (307) for any psychosis, suicidal or homicidal ideation, or with any risk of harm to self or others. Patient was seen Face to Face, Total time spent with patient was 60 minutes, which includes reviewing chart documents, previous notes/records, counseling and discussion with patient and/or coordination of care as described above. documented in this encounterHermann Area District [id number] Telephone encounter Note* Telephone Encounter - Pascale Arana NP - 01/06/2025 6:12 PM EDT Pt states she was not contacted about her iron infusion can we check with TB about this [place] [facility] HospitalInzycrrohb70-48-4174 Miscellaneous Notes* Telephone Encounter - Pascale Arana NP - 01/06/2025 6:12 PM EDT Pt states she was not contacted about her iron infusion can we check with TB about this [place] documented in this encounterHermann Area District HospitalPyuaenssax77-70-2401 History of Present illness Narrative* Pascale Arana [...] of the risks of continued smoking: stroke, PA, all forms of cancer, lung disease, and [...] of the risks of continued smoking: stroke, PA, all forms of cancer, lung disease, and [...] and sugary drinks. Pt meets qualifications of [facility] 4731-05-27 for weight loss. BMI>30 or [...] possible Current med: pantoprazole documented in this [facility]06-16-2025 Instructions* Patient Instructions* Pascale Arana NP - 01/06/2025 4:30 PM EDT Discontinue the citalopram Start lamotrigine 1 pill at night for 2 weeks, then increase to 1 pill twice a day after that documented in this [facility]05-28-2025 Telephone encounter Note* Telephone Encounter - LIZANDRO PICKARD - 12/18/2024 10:48 AM EDT Angelofrancheska. This is Steve at [facility] calling in regards to 1 of Pascale giraldo's patients. Her name is Talia Gipson, and we need to clarify some orders with her. She is supposed to be coming later today. Give us a call back as soon as possible. [phone], extension [phone],thank you. [facility] [id number] Miscellaneous Notes* Telephone Encounter - LIZANDRO PICKARD - 12/18/2024 10:48 AM EDT Tho. This is Steve at [facility] calling in regards to 1 of Pascale giraldo's patients. Her name is Talia Gipson, and we need to clarify some orders with her. She is supposed to be coming later today. Give us a call back as soon as possible. [phone], extension [phone],thank you. documented in this encounterHermann Area District HospitalPjkkwauhyr17-73-8044 History of Present illness Narrative* Pascale Arana [...] from gastro back in February * Pascale rAana, EVENT AV OPERATOR - 11/20/2024 3:20 PM EDT Images from the original note were not included. Talia Rutherford is a 54 y.o. female presents with chief complaint of Weight Check HPI: CARA: insurance denied her Iron infusion that I ordered, they will approve Infed, I did contact [facility] 11/19/24 they can order it, [...] nursing note reviewed. Exam conducted with a rfid specialist present. Constitutional: General: She is not in [...] (Adipex-P) 37.5 MG tablet documented in this [facility]04-30-2025 Instructions* Patient Instructions* Pascale Arana NP - 11/20/2024 3:20 PM EDT Citalopram: currently on 40mg daily, cut pill in half so only at 20mg dose Stop the lanxoprazole, and will trial pantoprazole 40mg daily GERD and if not better at fu appt we will refer to GI We will call about PAP smear results documented in this [facility]04-02-2025 History of Present illness Narrative* Pascale [...] of the risks of continued smoking: stroke, PA, all forms of cancer, lung disease, and [...] of the risks of continued smoking: stroke, PA, all forms of cancer, lung disease, and [...] Starting weight was 206 documented in this encounterHermann Area District HospitalKzvhebrebs86-53-3852 History of Present illness Narrative* Pascale Arana [...] of the risks of continued smoking: stroke, PA, all forms of cancer, lung disease, and [...] of the risks of continued smoking: stroke, PA, all forms of cancer, lung disease, and [...] starting weight [address] [facility]03-12-2025 Instructions* Patient Instructions* Pascale Arana NP - 10/02/2024 5:00 PM EDT Check labs Mammogram: will send to [facility] PAP documented in this [facility]02-12-2025 Instructions* Patient Instructions* Angel Luis Groves NP - 09/04/2024 5:00 PM EST Keep up the good work!!! documented in this [facility]01-22-2025 Telephone encounter Note* Telephone Encounter - Nupur Oneal - 08/14/2024 11:46 AM EST Patient said her dose was increased and now she is out of this medication. Can you please refill. ANAYELI [facility] [id number] Miscellaneous Notes* Telephone Encounter - Nupur Oneal - 08/14/2024 11:46 AM EST Patient said her dose was increased and now she is out of this medication. Can you please refill. ANAYELI documented in this [facility]01-20-2025 History of Present illness Narrative* Pascale Arana [...] of the risks of continued smoking: stroke, PA, all forms of cancer, lung disease, and [...] of the risks of continued smoking: stroke, PA, all forms of cancer, lung disease, and [...] Orders SUPERFICIAL WOUND (HTRX) documented in this encounterHermann Area District HospitalQuixwwlqrm49-90-1396 Instructions* Patient Instructions* Pascale Arana NP - 08/12/2024 4:00 PM EST Z pack, finish this Fluids, rest Cont layla and we will add flonase nasal spray Warm compress to affected area, will treat based on culture report documented in this encounterHermann Area District HospitalBpheucisaf86-33-1117 History of Present illness Narrative* Angel Luis [...] (Adipex-P) 37.5 MG tablet documented in this [facility]01-08-2025 Instructions* Patient Instructions* Angel Luis Groves NP - 07/31/2024 3:00 PM EST Notify office with any symptoms of chest pain, dyspnea, heart palpitations, or any anxiety symptoms. F/U in 4 weeks to document weight loss. Increase physical activity as tolerated, and lower caloricintake to 1600 calories daily if no contraindications. documented in this [facility]01-01-2025 History of Present illness Narrative* Angel [...] into month two. Pt meets qualifications of [facility] 4731-05-27 for weight loss. BMI>30 or [...] into month two. Pt meets qualifications of [facility] 4731-05-27 for weight loss. BMI>30 or >27 with comorbid conditions. Blood pressure WNL. Notify office with any symptoms of chest pain, dyspnea, heart palpitations, or any anxiety symptoms. F/U in 4 weeks to document weight loss. Increase physical activity as tolerated, and lower caloric intake to 1600 calories daily if no contraindications. documented in this encounterHermann Area District HospitalDwxudnmlqn32-93-3029 Telephone encounter Note* Telephone Encounter - Mar Powers MA - 06/03/2024 9:10 AM EST Pt takes the 60mg in morning and 30 mg in the afternoon, so both. [facility] HospitalSkyprucnip12-28-2066 Miscellaneous Notes* Telephone Encounter - Mar Powers MA - 06/03/2024 9:10 AM EST Pt takes the 60mg in morning and 30 mg in the afternoon, so both. * Telephone Encounter - Nupur Oneal - 06/03/2024 8:50 AM EST Patient is asking for a 90 day supply. Patient said 60 mg were denied. documented in this encounterHermann Area District HospitalAzvpzfgtgb89-57-5557 Telephone encounter Note* Telephone Encounter - Nupur Oneal - 06/03/2024 8:50 AM EST Patient is asking for a 90 day supply. Patient said 60 mg were denied. [facility] HospitalLizsodjjeh85-58-2653 History of Present illness Narrative* Angel Luis [...] pain has since resolved. documented in this encounterHermann Area District HospitalHwdezhddms55-30-4037 History of Present illness Narrative* Angel Luis [...] HAVING ABDOMINAL PAIN. PT SCHEDULED TO SEE [facility] ON 03/18 AT 1500. ). HPI IS here today for one week follow-up for constipation. Prescrivbed lacutlose at last visit-did not crop picker. Went on vacation to in [facility] in [place] for the weekend and had X3 BM's. Denies blood in stool. States she has been stressed recentlty and feels being away heloped her relax and she was finally able to pass BM. Sees GI in [place] on Sunday 03/18 @ 3pm. Still has [...] with GI next week. documented in this [facility]08-20-2024 Instructions* Patient Instructions* Angel Luis Groves NP - 03/12/2024 3:30 PM EDT Referral sent to Rheumatology- Dr. Muller in [place], [place]- they will call you! Have mammogram completed. Call if you need anything! documented in this [facility]11-15-2023 NoteChief Complaint consultation for colonoscopy HPI Staff [...] fibromyalgia, referred for severe anemia, admitted to [facility] in January with hb of 5; [...] mg Cap-DR, 30 mg= (more content not included)...[facility] CenterComment on above:Result Comment: Electronically Signed By: AMIE WELLER, Segun Graham\Date and Time Signed: 06/07/23 17:17 [id number] Evaluation + Plan note Diagnostic Tests Pending [...] Palpitations -Resolved, likely exacerbated (more content not included)...[facility]09-15-2023 NotePatient here for 2 mo [...] Systems All other systems reviewed and are negative.[facility] 02-08-2023 NoteCardiovascular Medicine [facility] SUBJECTIVE Chief Complaint Patient presents with [...] 6 weeks (around 03/22/2023). Carol Webb APRN-[facility] MedicineT[facility]11-08-2022 Note PROCEDURE: XR FOOT LT [...] Electronically authenticated by: TAMIKO NETTLES Date: 2022-05-31 20:30[facility]10-19-2022 NotePROCEDURE: XR FOOT LT MIN 3 [...] Electronically authenticated by: ELLIOT JOSE Date: 2022-05-11 16:14[facility]09-27-2022 NotePROCEDURE: XR FOOT LT MIN 3 [...] Electronically authenticated by: TAMIKO NETTLES Date: 2022-04-19 18:16[facility]09-07-2022 NotePROCEDURE: XR FOOT LT MIN 3 [...] Electronically authenticated by: TAMIKO NETTLES Date: 2022-03-30 06:41[facility]08-19-2022 NotePROCEDURE: XR FOOT LT MIN 3 [...] Electronically authenticated by: ELLIOT JOSE Date: 2022-03-11 08:26[facility]08-19-2022 NotePROCEDURE: XR FOOT LT 2V HISTORY: Pain COMPARISON: XR foot left 02/09/2022 FINDINGS: BONES:Multiple intraoperative images demonstrate mechanical fusion of the second and third tarsal-metatarsal joints. SOFT TISSUES:Expected intraoperative findings. EFFUSION:None visible. OTHER: Negative. IMPRESSION: 1. Mechanical fusion of second and third tarsal-metatarsal joints. Electronically authenticated by: ELLIOT JOSE Date: 2022-03-11 07:55[facility]07-21-2022 NotePROCEDURE: XR FOOT LT MIN 3 VIEWS COMPARISON: 12/15/2020 HISTORY: Pain FINDINGS: BONES:No acute fracture or dislocation. Stable moderate degenerative changes most significant at the tarsometatarsal joints. Moderate plantar enthesopathic spurring of the calcaneus SOFT TISSUES:Negative. No visible soft tissue swelling. EFFUSION:None visible. OTHER: Negative. IMPRESSION: Stable moderate degenerative changes Electronically authenticated by: TAMIKO NETTLES Date: 2022-02-10 07:37[facility]02-07-2022 Evaluation note* Encounter Date Diagnosis Assessment [...] [facility] Care At Home document [employer] Other Evaluation note* Diagnosis Bipolar disorder with severe depression (CMS/HCC) documented in this encounter [facility] HealthcareEvaluation noteNo assessment information availableLima City Hospital [facility]tr Work Phone: Evaluation note* Diagnosis [...] Primary Screening for diabetes mellitus Seizure-like activity ([facility]/HCC) Fluid level behind tympanic membrane of [...] in full remission, most recent episode depressed ([facility]/HCC) Psychophysiological insomnia Persistent disorder of initiating [...] current episode depressed, severe, without psychotic features ([facility]/HCC) Psychophysiological insomnia Persistent disorder of initiating [...] myalgia and myositis documented in this encounter [facility] HealthcareEvaluation note* Diagnosis Breast screening- Primary [...] female genital organ documented in this encounter [facility] HealthcareEvaluation note* Diagnosis Breast screening- Primary [...] 33.0-33.9,adult- Primary Bipolar disorder with severe depression ([facility]/HCC) Fibromyalgia Unspecified myalgia and myositis Gastro-esophageal reflux disease without esophagitis Esophageal reflux BMI 34.0-34.9,adult Psychophysiological insomnia Persistent disorder of initiating or maintaining sleep Overactive bladder due to prolapse of female genital organ Environmental and seasonal allergies documented in this encounter [facility] HealthcareEvaluation note* Diagnosis Breast screening- Primary Breast screening, unspecified Bipolar disorder, in full remission, most recent episode depressed (CMS/HCC) Psychophysiological insomnia Persistent disorder of initiating or maintaining sleep B12 deficiency Fibromyalgia Unspecified myalgia and myositis Screening mammogram for breast cancer Bipolar disorder, current episode depressed, severe, without psychotic features ([facility]/HCC) Psychophysiological insomnia Persistent disorder of initiating or maintaining sleep Fibromyalgia Unspecified myalgia and myositis Iron deficiency anemia secondary to inadequate dietary iron intake B12 deficiency B12 deficiency- Primary Bipolar disorder, current episode depressed, severe, without psychotic features ([facility]/HCC) Psychophysiological insomnia Persistent disorder of initiating [...] gastric bypass Bipolar disorder with severe depression ([facility]) Encounter for screening mammogram for breast cancer- Primary Screening for diabetes mellitus Seizure-like activity ([facility]) Fluid level behind tympanic membrane [...] of tympanic membranes documented in this encounter [facility] HealthcareEvaluation note* Diagnosis Breast screening- Primary [...] Primary Screening for diabetes mellitus Seizure-like activity ([facility]) Fluid level behind tympanic membrane [...] in full remission, most recent episode depressed ([facility]) Psychophysiological insomnia Persistent disorder of initiating or maintaining sleep B12 deficiency Fibromyalgia Unspecified myalgia and myositis Screening mammogram for breast cancer Bipolar disorder with severe depression ([facility]/HCC)- Primary Psychophysiological insomnia Persistent disorder of [...] female genital organ documented in this encounter [facility] HealthcareEvaluation note* Diagnosis Breast screening- Primary [...] whether esophagitis present documented in this encounter [facility] HealthcareEvaluation note* Diagnosis Breast screening- Primary [...] Primary Screening for diabetes mellitus Seizure-like activity ([facility]) Fluid level behind tympanic membrane [...] in full remission, most recent episode depressed ([facility]) Psychophysiological insomnia Persistent disorder of [...] of tympanic membranes documented in this encounter [facility] HealthcareEvaluation note* Diagnosis Breast screening- Primary [...] of tympanic membranes documented in this encounter [facility] HealthcareEvaluation note* Diagnosis Cystocele with second degree uterine prolapse- Primary History of reconstructive repair of rectocele Urge urinary incontinence Urge incontinence Incomplete emptying of bladder Incomplete bladder emptying Atrophic vaginitis Postmenopausal atrophic vaginitis [facility]* Diagnosis Breast screening- Primary Breast [...] apnea, unspecified type documented in this encounter [facility] HealthcareEvaluation note* Diagnosis Breast screening- Primary [...] Cervical stenosis of spine acuteSeptember 2024 8:29am [facility] Work Phone: Evaluation note* Diagnosis Breast [...] myalgia and myositis documented in this encounter [facility] HealthcareEvaluation note* Diagnosis Cystocele with second degree uterine prolapse- Primary History of reconstructive repair of rectocele Urge urinary incontinence Urge incontinence [facility]* Diagnosis Breast screening- Primary Breast [...] incontinence Urge incontinence [facility]* Diagnosis Urge urinary incontinence- Primary Urge incontinence Cystocele with second degree uterine prolapse History of reconstructive repair of rectocele documented [facility]* Diagnosis Breast screening- Primary Breast [...] psychotic features (HCC) documented in this encounter [facility] HealthcareHistory general Narrative - Reported* Type Description Date Medical History anxiety Medical HistoryGERD [employer] Other Hospital course Narrative No data available for this section General Surgery [facility] Discharge instructions No data available for this section General Surgery [facility] Instructions* Attachments The following attachments cannot be sent through Care Everywhere. * Pelvic floor muscle exercises ([place]) documented in this encounterProOhio State University Wexner Medical CenterMELA Sciences SystemInstructionsNot on file documented in this encounterProOhio State University We[facility] Medical CenterMELA Sciences SystemInstructionsNot on file documented in this encounterProOhio State University [facility] Medical CenterMELA Sciences SystemInstructionsNot on file documented in this encounterProKettering Health Greene Memorial SystemProgress note No data available for this section General Surgery [facility] Reason for referral (narrative)* Consultation (Routine) - Pending ReviewSpecialtyDiagnoses / ProceduresReferred By ContactReferred To ContactRheumatology Diagnoses Fibromyalgia Procedures [place] OFFICE/OUTPATIENT NEW HIGH MDM 60 MINUTES Angel Luis Groves NP [address] [place] [id number] Tyson Collazo MD [address] [place] [address] Referral IDStatusReasonStart DateExpiration DateVisits RequestedVisits [id number] Review Specialty Services Required / Scheduling Instructions Please include OV note from today And labs from 07/28/2023 [facility] HealthcareReason for referral (narrative)No reason for referral information availableBerger Hospital Work Phone: Reason for visit Narrative* Consultation (Routine) - ClosedSpecialtyDiagnoses / ProceduresReferred By ContactReferred To Contact Urogynecology / Gynecology Diagnoses Cystocele with second degree uterine prolapse History of reconstructive repair of rectocele Urge urinary incontinence Shelia Muniz DO [address] [place] [address] Phone: tel: fax: Jovon Asif MD [address], [address] [address] Phone: tel: fax: Referral IDStatusReasonStart DateExpiration DateVisits RequestedVisits [id number] Specialty Services Required [facility] Summary Purpose Family History Relationship Condition [...] syndrome of right side Septem 2024 8:29am Chief Complaint Admit Date Spinal [...] and content) DATE CREATED AUTHOR 11/16/2018 [facility] DATE CREATED AUTHOR AUTHOR'S ORGANIZ ATION 06/05/2022 [facility] DATE CREATED AUTHOR AUTHOR'S ORGANIZ ATION 04/09/2023 [facility] DATE CREATED AUTHOR AUTHOR'S ORGANIZ ATION 03/20/2024 [facility] DATE CREATED AUTHOR AUTHOR'S ORGANIZ ATION 05/04/2025 [facility] DATE CREATED AUTHOR AUTHOR'S ORGANIZ ATION 05/10/2025 [facility] DATE CREATED AUTHOR AUTHOR'S ORGANIZ ATION 05/30/2025 [facility] DATE CREATED AUTHOR AUTHOR'S ORGANIZ ATION 06/03/2025 [facility] EPIC REASON FOR VISIT (unrecogniz ed section and content) ReasonCommentsMed RefillReasonOnset DateCommentsMed [id number] DateCommentsMed Grezud2206/25/2024easonCommentsFollow-upCONSTIPATION, PT HAS HAD THREE BM'S SINCE LAST VISIT. PT IS STILL HAVING ABDOMINAL PAIN. PT SCHEDULED TO SEE GUDELIA GONZALEZ ON 03/18 AT 1500.ReasonCommentsFollow-upReasonOnset DateComments Med Wklkqg2107/25/2024ReasonCommentsFollow-up3 mHot flashesReasonCommentsSore ThroatReasonOnset DateCommentsMed Gnpwcv8708/14/2024ReasonCommentsWeight Check ReasonOnset DateCommentsMed Lxvliu4109/06/2024ReasonOnset DateCommentsMed Refill 10/23/2024ReasonOnset DateCommentsMed Cwbyfj8911/18/2024ReasonCommentsWeight Check ReasonCommentsPsychiatric EvaluationSpecialtyDiagnoses / ProceduresReferred By ContactReferred To ContactBehavioral Health Diagnoses Bipolar disorder with severe depression (HCC) Procedures [place] OFFICE/OUTPATIENT NEW HIGH MDM 60 MINUTES Pascale Arana NP [address] [place] [address] Phone: tel: fax: Eunice Dias, PMHNP- [address] [facility] [address] [place] [address] Phone: tel: fax: Referral IDStatusReasonStart DateExpiration DateVisits RequestedVisits [id number] Specialty Services Required [id number] PatientNew Patient presents for evaluation of a [...] Molina De Anda MD [address] [place] [address] [facility] - [facility]/21/24 Angel Luis Groves NP [address] [place] [address] Nurse PractitionerFloyd Polk Medical Center02/21/24Team MemberRelationshipSpecialtyStart DateEnd Date Molina De Anda MD [address] [place] [address] PCP - [facility]02/21/24 Angel Luis Groves NP [address] [place] [address] Nurse PractitionerFloyd Polk Medical Center02/21/24Team MemberRelationshipSpecialtyStart DateEnd Date Molina De Anda MD [address] [place] [address] PCP - [facility]02/21/24 Angel Luis Groves, MARY JO [address] [place] [address] Nurse PractitionerFloyd Polk Medical Center02/21/24Team MemberRelationshipSpecialtyStart DateEnd Date Molina De Anda MD [address] [place] [address] [facility] Center02/21/24 Angel Luis Groves NP [address] [place] [address] Nurse [facility]Fl[facility]02/21/24Team MemberRelationshipSpecialtyStart DateEnd Date Molina De Anda MD [address] [place] [address] PCP - [facility]Fl[facility]02/21/24 Angel Luis Groves NP [address] [place] [address] Nurse PractitionerFl[facility]02/21/24Team MemberRelationshipSpecialtyStart DateEnd Date Molina De Anda MD [address] [place] [address] PCP - [facility]02/21/24 Angel Luis Groves NP [address] [place] [address] Nurse PractitionerFl[facility]02/21/24Team MemberRelationshipSpecialtyStart DateEnd Date Molina De Anda MD [address] [place] [address] PCP - [facility]02/21/24 Angel Luis Groves NP [address] [place] [address] Nurse PractitionerFl[facility]02/21/24Team MemberRelationshipSpecialtyStart DateEnd Date Molina De Anda MD [address] [place] [address] PCP - [facility]Fl[facility]02/21/24 Angel Luis Groves NP [address] [place] [address] Nurse Pract[facility]Fl[facility]02/21/24Team MemberRelationshipSpecialtyStart DateEnd Date Molina De Anda MD [address] [place] [address] PCP - [facility]02/21/24 Angel Luis Groves NP [address] [place] [address] Nurse [facility]Fl[facility]02/21/24Team MemberRelationshipSpecialtyStart DateEnd Date Molina De Anda MD [address] [place] [address] PCP - [facility]02/21/24 Angel Luis Groves, MARY JO [address] [place] [address] Nurse Pract[facility]Fl[facility]02/21/24Team MemberRelationshipSpecialtyStart DateEnd Date Molina De Anda MD [address] [place] [address] PCP - [facility]02/21/24 Angel Luis Groves NP [address] [place] [address] Nurse [facility]Fl[facility]02/21/24Team MemberRelationshipSpecialtyStart DateEnd Date Molina De Anda MD [address] [place] [address] PCP - [facility]Fl[facility]02/21/24 Angel Luis Groves NP [address] [place] [address] Nurse Pract[facility]Fl[facility]02/21/24Team MemberRelationshipSpecialtyStart DateEnd Date Molina De Anda MD [address] [place] [address] PCP - [facility]02/21/24 Angel Luis Groves NP [address] [place] [address] Nurse [facility]02/21/24Team MemberRelationshipSpecialtyStart DateEnd Date Molina De Anda MD [address] [place] [address] PCP - [facility]02/21/24 Angel Luis Groves NP [address] [place] [address] Nurse [facility]02/21/24Team MemberRelationshipSpecialtyStart DateEnd Date Molina De Anda MD [address] [place] [address] PCP - [facility]Fl[facility]02/21/24 Angel Luis Groves NP [address] [place] [address] Nurse Pract[facility]02/21/24Team MemberRelationshipSpecialtyStart DateEnd Date Molina De Anda MD [address] [place] [address] PCP - [facility]02/21/24 Angel Luis Groves NP [address] [place] [address] Nurse [facility]02/21/24Team MemberRelationshipSpecialtyStart DateEnd Date Molina De Anda MD [address] [place] [address] PCP - [facility]02/21/24 Angel Luis Groves, MARY JO [address] [place] [address] Nurse Pract[facility]Fl[facility]02/21/24Team MemberRelationshipSpecialtyStart DateEnd Date Molina De Anda MD [address] [place] [address] PCP - [facility]02/21/24 Angel Luis Groves, MARY JO [address] [place] [address] Nurse [facility]Fl[facility]02/21/24Team MemberRelationshipSpecialtyStart DateEnd Date Molina De Anda MD [address] [place] [address] [facility] - [facility]02/21/24 Angel Luis Groves NP [address] [place] [address] Nurse Pract[facility]erFl[facility]02/21/24Team MemberRelationshipSpecialtyStart DateEnd Date Molina De Anda MD [address] [place] [address] PCP - [facility]02/21/24 Angel Luis Groves NP [address] [place] [address] Nurse [facility]02/21/24Team MemberRelationshipSpecialtyStart DateEnd Date Molina D eAnda MD [address] [place] [address] PCP - [facility]02/21/24 Angel Luis Groves NP [address] [place] [address] Nurse Pract[facility]Fl[facility]02/21/24Team MemberRelationshipSpecialtyStart DateEnd Date Molina De Anda MD [address] [place] [address] PCP - [facility]Fl[facility]02/21/24 Angel Luis Groves NP [address] [place] [address] Nurse Practitionermily Medicine02/21/24Team MemberRelationshipSpecialtyStart DateEnd Date Molina De Anda MD [address] [place] [address] PCP - Generalmi Medicine02/21/24 Angel Luis Groves NP [address] [place] [address] Nurse [facility]02/21/24Team MemberRelationshipSpecialtyStart DateEnd Date Molina De Anda MD [address] [place] [address] PCP - [facility]Fl[facility]02/21/24 Angel Luis Groves NP [address] [place] [address] Nurse Pract[facility]erFl[facility]02/21/24Team MemberRelationshipSpecialtyStart DateEnd Date Molina De Anda MD [address] [place] [address] PCP - [facility]02/21/24 Angel Luis Groves NP [address] [place] [address] Nurse PractitionerFl[facility]02/21/24Team MemberRelationshipSpecialtyStart DateEnd Date Molina De Anda MD [address] [place] [address] PCP - Generalmi Medicine02/21/24 Angel Luis Groves NP [address] [place] [address] Nurse [facility] Medicine02/21/24Team MemberRelationshipSpecialtyStart DateEnd Date Molina De Anda MD [address] [place] [address] PCP - [facility]02/21/24 Angel Luis Groves NP [address] [place] [address] Nurse Pract[facility]Fl[facility]02/21/24Team MemberRelationshipSpecialtyStart DateEnd Date Molina De Anda MD [address] [place] [address] PCP - [facility]02/21/24 Angel Luis Groves NP [address] [place] [address] Nurse [facility]Fl[facility]02/21/24Team MemberRelationshipSpecialtyStart DateEnd Date Molina De Anda MD [address] [place] [address] PCP - [facility]02/21/24 Angel Luis Groves NP [address] [place] [address] Nurse [facility]02/21/24Team MemberRelationshipSpecialtyStart DateEnd Date Molina De Anda MD [address] [place] [address] PCP - [facility]02/21/24 Angel Luis Groves NP [address] [place] [address] Nurse Pract[facility]02/21/24Team MemberRelationshipSpecialtyStart DateEnd Date Molina De Anda MD [address] [place] [address] PCP - [facility]02/21/24 Angel Luis Groves NP [address] [place] [address] Nurse [facility]02/21/24Team MemberRelationshipSpecialtyStart DateEnd Date Molina De Anda MD [address] [place] [address] PCP - [facility]02/21/24 Angel Luis Groves NP [address] [place] [address] Nurse [facility]02/21/24Team MemberRelationshipSpecialtyStart DateEnd Date Molina De Anda MD [address] [place] [address] PCP - [facility]02/21/24 Angel Luis Groves NP [address] [place] [address] Nurse [facility]02/21/24Team MemberRelationshipSpecialtyStart DateEnd Date Molina De Anda MD [address] [place] [address] PCP - GeneralFamily Medicine02/21/24 Angel Luis Groves NP [address] [place] [address] Nurse [facility] Medicine02/21/24Team MemberRelationshipSpecialtyStart DateEnd Date Molina De Anda MD [address] [place] [address] PCP - Generalmi Medicine02/21/24 Angel Luis Groves NP [address] [place] [address] Nurse [facility]Fl[facility]02/21/24Team MemberRelationshipSpecialtyStart DateEnd Date Molina De Anda MD [address] [place] [address] PCP - GeneralFami Medicine02/21/24 Angel Luis Groves NP [address] [place] [address] Nurse [facility] Medicine02/21/24Team MemberRelationshipSpecialtyStart DateEnd Date Molina De Anda MD [address] [place] [address] PCP - [facility] Medicine02/21/24 Angel Lius Groves NP [address] [place] [address] Nurse [facility] Medicine02/21/24Team MemberRelationshipSpecialtyStart DateEnd Date Molina De Anda MD [address] [place] [address] PCP - [facility]02/21/24 Angel Luis Groves NP [address] [place] [address] Nurse [facility]02/21/24Team MemberRelationshipSpecialtyStart DateEnd Date Molina De Anda MD [address] [place] [address] PCP - [facility]02/21/24 Angel Luis Groves NP [address] [place] [address] Nurse [facility]02/21/24Team MemberRelationshipSpecialtyStart DateEnd Date Molina De Anda MD [address] [place] [address] PCP - [facility]02/21/24 Angel Luis Groves NP [address] [place] [address] Nurse [facility]02/21/24 Eunice Disa [facility] [address] [place] [address] [place] [address] [facility]01/22/25Team MemberRelationshipSpecialtyStart DateEnd Date Molina De Anda MD [address] [place] [address] PCP - Generalmily Medicine02/21/24 Angel Luis Groves NP [address] [place] [address] [facility]02/21/24 Eunice Dias [facility] [address] [facility] [address] [place] [address] Nurse [facility]01/22/25Team MemberRelationshipSpecialtyStart DateEnd Date Molina De Anda MD [address] [place] [address] PCP - [facility]Fl[facility]02/21/24 Angel Luis Groves NP [address] [place] [address] Nurse [facility]02/21/24 Eunice Dias, [facility] [address] [facility] [address] [place] [address] Nurse [facility]01/22/25Team MemberRelationshipSpecialtyStart DateEnd Date No Pcp, [place] [address] PCP - Generalmily Medicine11/21/18Team MemberRelationshipSpecialtyStart DateEnd Date Molina De Anda MD [address] [place] [address] PCP - Generalmily Medicine02/21/24 Angel Luis Groves NP [address] [place] [address] Nurse [facility] Medicine02/21/24 [facility] [address] [facility] [address] [place] [address] Nurse [facility]01/22/25Te MemberRelationshipSpecialtyStart DateEnd Date Molina De Anda MD [address] [place] [address] PCP - [facility]02/21/24 Angel Luis Groves NP [address] [place] [address] Nurse [facility]02/21/24 [facility] [address] [facility] [address] [place] [address] Nurse [facility]01/22/25Team MemberRelationshipSpecialtyStart DateEnd Date Molina De Anda MD [address] [place] [address] PCP - [facility]02/21/24 Angel Luis Groves, MARY JO [address] [place] [address] Nurse [facility]02/21/24 Eunice Dias, [facility] [address] [facility] [address] [place] [address] Nurse [facility]01/22/25Team MemberRelationshipSpecialtyStart DateEnd Date Molina De Anda MD [address] [place] [address] PCP - GeneralFamily Medicine02/21/24 Angel Luis Groves NP [address] [place] [address] Nurse [facility]02/21/24 [facility] [address] [facility] [address] [place] [address] Nurse [facility]01/22/25Team MemberRelationshipSpecialtyStart DateEnd Date Molina De Anda MD [address] [place] [address] PCP - Generalmily [facility]02/21/24 Angel Luis Groves NP [address] [place] [address] Nurse [facility]02/21/24 [facility] [address] [facility] [place] [address] Nurse [facility]01/22/25Team MemberRelationshipSpecialtyStart DateEnd Date No Pcp, [place] [address] PCP - GeneralFamily Medicine11/21/18Team MemberRelationshipSpecialtyStart DateEnd Date Molina De Anda MD [address] [place] [address] PCP - GeneralFamily Medicine02/21/24 Angel Luis Groves NP [address] [place] [address] Nurse Practitionermily Medicine02/21/24 [facility] [address] [facility] [address] [place] [address] Nurse PractitionerBehavioral [facility]01/22/25Team MemberRelationshipSpecialtyStart DateEnd Date Molina De Anda MD [address] [place] [address] PCP - [facility]02/21/24 Angel Luis Groves, MARY JO [address] [place] [address] Nurse [facility]02/21/24 Eunice Dias [facility] [address] [facility] [facility] [address] [place] [address] Nurse [facility]01/22/25Team MemberRelationshipSpecialtyStart DateEnd Date Molina De Anda MD [address] [place] [address] PCP - GeneralFamily Medicine02/21/24 Angel Luis Groves, EVENT AV OPERATOR [address] [place] [address] Nurse [facility]02/21/24 Eunice Dias, [facility] [address] [facility] [address] [place] [address] Nurse [facility]01/22/25Team MemberRelationshipSpecialtyStart DateEnd Date Molina De Anda MD [address] [place] [address] PCP - GeneralFamily Medicine02/21/24 Angel Luis Groves NP [address] [place] [address] Nurse PractitionerFamily Medicine02/21/24 [facility] [address] [facility] [address] [place] [address] Nurse PractitionerBehavioral Health01/22/25 Rohan Waters LPC Social WorkerBehavioral [facility]03/06/25 Team Status: Active Member Role Status Dates Pascale Arana Primary Care Provider Active Team Status: Inactive Member Role Status Dates Shun Arshad MD Attending Provider Active Star t: March 25, 2025 End: March 25, 2025Lisa Bang AranaEncompass Health Care ProviderActiveStart: March 25, 2025 End: March 25, 2025Team MemberRelationshipSpecialtyStart DateEnd Date Molina De Anda MD PCP - GeneralFamily Medicine02/21/24 Angel Luis Groves, MARY JO [facility]02/21/24 Eunice Dias [facility] [address] [facility] [place] [address] Nurse PractitionerBehavioral Health01/22/25 Rohan Waters LPC Social [facility]er[facility]03/06/25Team MemberRelationshipSpecialtyStart Date End Date Molina De Anda MD PCP - GeneralFamily Medicine02/21/24 Angel Luis Groves NP [facility]02/21/24 [facility] [address] [facility] [address] [place] [address] Nurse PractitionerBehavioral Health01/22/25 [facility] Social WorkerBehavioral Health03/06/25Team MemberRelationshipSpecialtyStart Date End Date Molina De Anda MD PCP - GeneralFamily Medicine02/21/24 Angel Luis Groves NP Nurse [facility]02/21/24 [facility] [address] [facility] [address] [place] [address] Nurse PractitionerBehavioral [facility]01/22/25 [facility] Social Workerhavioral [facility]03/06/25Team MemberRelationshipSpecialtyStart Date End Date Pascale Arana, PHYSICIAN LIAISON-FOREIGN LEGAL CONSULTANT [facility] [place] [address] PCP - GeneralNurse Practitioner04/02/25Team MemberRelationshipSpecialtyStart Date End Date Molina De Anda MD PCP - GeneralFamily Medicine02/21/24 Angel Luis Groves NP [facility]02/21/24 Eunice Dias [facility] [address] [facility] [address] [place] [address] Nurse [facility]01/22/25 Rohan Waters LPC Social Worker[facility]03/06/25Team MemberRelationshipSpecialtyStart Date End Date Molina De Anda MD PCP - [facility] Medicine02/21/24 Angel Luis Groves NP Nurse Pract[facility]erFl[facility]02/21/24 [facility] [address] [facility] [address] [place] [address] Nurse Pract[facility]er[facility]01/22/25 Rohan Waters LPC Social [facility]er[facility]03/06/25 Team Status: Active Member Role Status Dates Pascale Arana EVENT AV OPERATOR-C Primary Care Provider Active Team Status: Inactive Member Role Status Dates Shun Arshad MD Attending Provider Active Star t: March 25, 2025 End: March 25, 2025Pascale Arana NP-CPrimary Care ProviderActiveStart: March 25, 2025 End: March 25, 2025 Team Status: Inactive Member Role Status Dates Pascale Arana EVENT AV OPERATOR-C Primary Care Provider Active Start: April 23, 2025 End: April 23, 2025Nolberto Middletonending ProviderActiveStart: April 23, 2025 End: April 23, 2025 Team Status: Active Member Role Status Dates Pascale Arana EVENT AV OPERATOR-C Primary Care Provider Active Start: April 23, 2025 Shun Arshad MDOther ProviderActiveStart: April 23, 2025 Temple D Siebenaler , MDAttending ProviderActiveStart: April 23, 2025 Team Status: Inactive Member Role Status Dates Pascale Arana , EVENT AV OPERATOR-C Primary Care Provider Active Start: April 30, 2025 End: April 30, 2025Pascale Arana , EVENT AV OPERATOR-CAttending ProviderActiveStart: April 30, 2025 End: April 30, 2025Team MemberRelationshipSpecialtyStart DateEnd Date Pascale Arana PHYSICIAN LIAISON-FOREIGN LEGAL CONSULTANT [address] [place] [address] [facility] Team Status: Active Member Role Status Dates Pascale Arana , EVENT AV OPERATOR-C Primary Care Provider Active Start: May 05, 2025 Pascale Arana , EVENT AV OPERATOR-CAttending ProviderActiveStart: May 05, 2025 Team Status: Inactive Member Role Status Dates Pascale Arana , EVENT AV OPERATOR-C Primary Care Provider Active Start: May 05, 2025 End: May 05, 2025Clinton Del Toro APRNAttending ProviderActiveStart: May 05, 2025 End: May 05, 2025Team MemberRelationshipSpecialtyStart DateEnd Date Molina De Anda MD PCP - Generalmily Medicine02/21/24 Angel Luis Groves NP [facility] Medicine02/21/24 Eunice Dias, [facility] [address] [address] [place] [address] Nurse Pract[facility]er[facility]01/22/25Team MemberRelationshipSpecialtyStart DateEnd Date Pascale Arana PHYSICIAN LIAISON-FOREIGN LEGAL CONSULTANT [address] [place] [address] PCP - GeneralNurse Practitioner04/02/25Team MemberRelationshipSpecialtyStart Date End Date Molina De Anda MD [facility] - [facility]02/21/24 Angel Luis Groves NP [facility]02/21/24 [facility] [address] [place] [address] [place] [address] Nurse Pract[facility]er[facility]01/22/25Team MemberRelationshipSpecialtyStart DateEnd Date Molina De Anda [facility]02/21/24 Angel Luis Groves NP Nurse Pract[facility]Fl[facility]02/21/24 [facility] [address] [place] [address] [place] [address] Nurse [facility]01/22/25 Team Status: Active Member Role/Relationship Status Dates Pascale Arana NP-C Primary Care Provider Active Team Status: Inactive [...] Inactive Member Role/Relationship Status Dates Pascale Arana EVENT AV OPERATOR-C Primary Care Provider Active Start: April 30, 2025 End: April 30, 2025Pascale Arana , EVENT AV OPERATOR-CAttending ProviderActiveStart: April 30, 2025 End: April 30, 2025 Team Status: Active Member Role/Relationship Status Dates Pascale Arana EVENT AV OPERATOR-C Primary Care Provider Active Start: May 05, 2025 Pascale Arana EVENT AV OPERATOR-CAttending ProviderActiveStart: May 05, 2025 Team Status: Inactive Member Role/Relationship Status Dates Pascale Arana EVENT AV OPERATOR-C Primary Care Provider Active Start: May 05, 2025 End: May 05, 2025Clinton Del Toro APRNAttending ProviderActiveStart: May 05, 2025 End: May 05, 2025 Team Status: Inactive Member Role/Relationship Status Dates Pascale Arana EVENT AV OPERATOR-C Primary Care Provider Active Start: May 26, 2025 End: May 26, 2025Lisa Bang Arana , EVENT AV OPERATOR-CAttending ProviderActiveStart: May 26, 2025 End: May 26, [...] BE BASED ON THE PRIMARY CLINICAL RECORDS. [employer] provides no warranty or guarantee of the accuracy or completeness of information in this document.
--- OUTSIDE RECORDS SUMMARY | 2025-06-16 08:04 | XMS_ITS | Clinical Summary ---
Author Organization [employer] tem Address [id number] [place] [address] Care Team Providers Care Frame Bender Name Role Phone DerrickPascale argueta Bang PROJECT MANAGER/DESIGN MANAGER-BOARD OF EDUCATION SECRETARY Primary Care Provider Allergies Active AllergyReactionsCriticalityNoted KosjUzalunxpInyzelygcthObewe45/19/2023 Medications MedicationSigDispense QuantityRefillsLast FilledStart DateEnd DateStatus meloxicam [...] second degree uterine prolapse 05/30/2025 Encounters DateTypeDepartmentCare IqkvArtitdogpjl17/05/2025 2:30 PM ESTProcedure visit [facility] [address] [place] [address] Tania Asif MD Urge urinary incontinence (Primary Dx); Cystocele with second degree uterine prolapse; History of reconstructive repair of oxukrjurs20/05/5635Havnii41/10/2025Telephone [facility]necology [address] [place] [address] Areli Gudino CMA 04/02/2025 3:00 PM EDTOffice Visit [facility] [address] [place] [address] Tania Asif MD Cystocele with second degree uterine prolapse (Primary Dx); History of reconstructive repair of rectocele; Urge urinary zbyirretjzib79/10/2025Travelfrom Last 3 Months Family History Medical HistoryRelationNameCommentsDiabetesFatherHeart attackFatherHypertension FatherStrokeFatherBreast cancerMaternal AuntDiabetesMaternal GrandfatherBreast cancerMaternal GrandmotherDiabetesMotherThyroid cancerPaternal GrandmotherColon cancerNeg HxOvarian cancerNeg HxUterine cancerNeg HxRelationNameStatusComments Kswksnkmk0WfldwEeumdbAoudlxooVamklzeo AuntAliveMaternal GrandfatherDeceased Maternal GrandmotherDeceasedMotherDeceasedPaternal GrandfatherDeceasedPaternal QlzwtkimxqzDlujmeatSflpxnw0OqbskJesWphjf Social History Tobacco UseTypesPacks/DayYears UsedDateSmoking Tobacco: Every SuzYtnblwnzjq668 Smokeless Tobacco: Never Tobacco Cessation:Ready to Q uit: Not Asked; Counseling Given: Not Answered Alcohol UseStandard Drinks/WeekCommentsYes0 (1 standard drink = 0.6 oz pure alcohol)ChildcareAnswerDate BerrxneeVtvyjkgwrLtibcqj48/12/2019EmploymentAnswer Date XkqmygcmXlowqlddsvPtlhaha09/12/2019Hunger ScreeningAnswerDate Recorded Within the past 12 months we worried whether our food would run out before we got money to buy more.Never True05/28/2025Within the past 12 months the food we bought just didn't last and we didn't have money to get more.Never True 05/28/2025Purpose - LifeAnswerDate RecordedPurpose and direction in lifeUnknown 1CommentsNoSex and Gender InformationValueDate RecordedSex Assigned at BirthNot on fileLegal HjyUouzla50/06/2015 12:10 PM EDTGender IdentityNot on fileSexual OrientationNot on file Last Filed Vital Signs Vital SignReadingTime TakenCommentsBlood Kyugwbhr718/6705/28/2025 2:35 PM EST Rlguh295405/28/2025 2:35 PM ESTTemperature--Respiratory Rate--Oxygen Saturation-- Inhaled Oxygen Concentration--Cwnkej85.7 kg (173 lb 9.6 oz)05/28/2025 2:35 PM OCPNmtngu045.4 cm (5' 5.5 )05/28/2025 2:35 PM ESTBody Mass Index28.45107/28/2024 2:35 PM EST Plan of Treatment DateTypeDepartmentCare Team (Latest Contact Info)Dyjarsjznak72/16/2025 2:45 PM ESTPro[facility] [address] [address] 07/22/2025 2:45 PM ESTHospital Encounter [facility] [address] [place] [address] Tania Asif MD [address] [facility] [address] [facility] [address] [place] [address] 07/22/2025 2:45 PM EST - 07/22/2025 5:30 PM ESTSurgery [facility] [address] [place] [address] Tania Asif MD [address] [facility] [address] [place] [address] DAVINCI HYSTERECTOMY SALPINGO OOPHORECTOMY [[id number] (CPT??)]09/03/2025 3:15 PM EST Office Visit [facility] [address] [place] [address] Tania Asif MD [address] [facility] [address] [place] [address] NamePriorityAssociated DiagnosesDate/TimeDAVINCI HYSTERECTOMY SALPINGO OOPHORECTOMY Cystocele with second degree uterine prolapse 07/22/2025 2:45 PM ESTDAVINCI SUSPENSION LIGAMENT UTEROSACRAL Cystocele with second degree uterine prolapse 07/22/2025 2:45 PM ESTREPAIR ANTERIOR CYSTOCELE VAGINA Cystocele with second degree uterine prolapse 07/22/2025 2:45 PM ESTCYSTOSCOPY Cystocele with second degree uterine prolapse 07/22/2025 2:45 PM ESTHealth MaintenanceDue DateLast DoneCommentsTobacco Mmcgiogeyu1971Depression Hcatgqhgz48/13/1983Adult BMI Follow Up Plan 1989DTaP,Tdap and Td Vaccines (1 - Tdap)1990Pap Smear1992 Zoster (Shingles) Vaccine (1 of 2)2021Influenza Idzcuvk0003/24/2025dult BMI Mrrhprupg86Tobacco Wbgjcjxki80 Goals GoalPatient Goal TypeAssociated ProblemsRecent ProgressPatient-Stated?Author Autogenerated Goal Care PlanAutogenerated ProblemNoElizabeth [employer] Not on file Procedures Procedure NamePriorityDate/TimeAssociated DiagnosisCommentsPOCT URINALYSIS DIPSTICK GHXVMunrpwy19/05/2025 3:04 PM EST Cystocele with second degree uterine prolapse History of reconstructive repair of rectocele Urge urinary incontinence MEASURE POST VOID CCWRFYXGTpcjqbm13/05/2025 Cystocele with second degree uterine prolapse History of reconstructive repair of rectocele Urge urinary incontinence from Last 3 Months Results * POCT urinalysis dipstick only (05/28/2025 3:04 PM EST)ComponentValueRef Range Test MethodAnalysis TimePerformed AtPathologist SignatureExternal Poct Urine ColorYELLOWMANUALLY TRANSCRIBED RESULTSExternal Poct Urine AppearanceCLEAR MANUALLY TRANSCRIBED RESULTSExternal Poct Urine GlucoseNegativeMANUALLY TRANSCRIBED RESULTSExternal Poct Urine KetonesNegativeMANUALLY TRANSCRIBED RESULTSExternal Poct Urine BloodNegativeMANUALLY TRANSCRIBED RESULTSExternal Poct Urine Zw1GXYHHNWE TRANSCRIBED RESULTSExternal Poct Urine ProteinNegative MANUALLY TRANSCRIBED RESULTSExternal Poct Urine NitriteNegativeMANUALLY TRANSCRIBED RESULTSExternal Poct Urine Leukocyte EsteraseNegativeMANUALLY TRANSCRIBED RESULTSSpecimen (Source)Anatomical Location / LateralityCollection Method / VolumeCollection TimeReceived GxikVzqka16/05/2025 3:04 PM EST Narrative Authorizing ProviderResult TypeResult StatusNadine C Laya MDPOINT OF CARE TEST ORDERABLESFinal ResultPerforming OrganizationAddressCity/State/ZIP CodePhone Number MANUALLY TRANSCRIBED RESULTS * Measure post void residual (05/28/2025)ComponentValueRef RangeTest Method Analysis TimePerformed AtPathologist KjreblehvQoynlk77hxRWUORKWM TRANSCRIBED RESULTSSpecimen (Source)Anatomical Location / LateralityCollection Method / VolumeCollection TimeReceived TimeUrine Narrative Authorizing ProviderResult TypeResult StatusTania Asif MDNURSING ASSESSMENTSFinal ResultPerforming OrganizationAddressCity/State/ZIP CodePhone Number MANUALLY TRANSCRIBED RESULTS from Last 3 Months Additional Health Concerns Active ProblemsNoted DateDiagnosed DateAutogenerated Tftjuke1205/30/2025 Insurance Care Teams Team MemberRelationshipSpecialtyStart DateEnd Date Pascale Arana, PROJECT MANAGER/DESIGN MANAGER-BOARD OF EDUCATION SECRETARY [address] [place] [place] [address] PCP - GeneralNurse Practitioner04/02/25
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
--- OUTSIDE RECORDS SUMMARY | 2025-06-16 08:04 | XMS_ITS | Patient Health Record ---
Author Organization [facility] Address [address] [address], [facility] [address] Care Team Providers Care Guncotton Packer Name Role Phone SuMathew sal Unavailable [phone] Allergies Allergen (clinical drug ingredient) Drug/Non Drug Allergy documented on EMR Reaction Allergy Type Onset Date Status PenicillinhivesDrug AllergyActive Reason For Referral No Information Medications Medication SIG (Take, Route, Frequency, Duration) Notes Start Date End Date Status Cholecalciferol 125 MCG (5000 UT) Capsul e 1 capsule Orally Once a day; Duration: 90 days 5ActiveMeloxicam 15 MG Tablet1 tablet Orally daily; Duration: 30 days ActivePrevacid 30 MG Capsule Delayed Release1 capsule 1/2 to 1 hour before morning meal Orally Once a dayActiveAmbien 10 MG Tablet1 tablet at bedtime as needed Orally Once a vfyCutrctCldnygbh28/22/2025ActiveVitamin B1203/14/2025 ActiveVraylar 3 MG CapsuleOral; Duration: 30 DaysActiveAllegraActiveDetrol LA 2221DsoitxQfuismat37/22/2025Active Social History Section Notes: Patient is a current smoker. No alcohol use. 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 Lives in [place], risk due to limited sun exposure. - [...] Coverage Start Date Coverage End Date [employer] [address] [address] [place] [address] [id number] Kenyon Mercado - patient is the insured Medical (General) History Medical History History ICD Code GERD
--- OUTSIDE RECORDS SUMMARY | 2025-06-16 08:04 | XMS_ITS | Clinical Summary ---
Author Organization [facility] Address [address] [place] [address] Care Team Providers Care Studio Potter Name Role Phone Shaikh NITHIN Main Primary Care Provider [phone] Allergies Active AllergyReactionsCriticalityNoted DibsLiecrvjgYzovpikjjea91/19/2023 Medications MedicationSigDispense QuantityRefillsLast FilledStart DateEnd DateStatus citalopram [...] InformationValueDate RecordedSex Assigned at BirthNot on fileLegal RkeOkrjkf14/29/2022 10:25 PM EDT Gender IdentityNot on fileSexual OrientationNot on file Last Filed Vital Signs Vital SignReadingTime TakenCommentsBlood Jesnngeg06/6109 3:16 PM EDT Kffok2024 3:16 PM EDTTemperature--Respiratory Rate--Oxygen Mylslqykao68% 04/07/2023 3:16 PM EDTInhaled Oxygen Concentration--Mzccfr963 kg (224 lb) 04/07/2023 3:16 PM SONBdzthl718.1 cm (5' 5 )04/07/2023 3:16 PM EDTBody Mass Index37.28004/07/2023 3:16 PM EDT Plan of Treatment Health MaintenanceDue DateLast DoneCommentsCT Wljdyepxijra1971Colonoscopy 1971Colorectal Cancer Nkexwdstd1971FIT-DNA1971FIT1971 FOBT1971 3222Iuerpkvlkqzsy1971Depression Nznyxfnsm89/13/1983Hepatitis B Vaccines (1 of 3 - 19+ 3-dose series)1990Pneumococcal Vaccine: Pediatrics (0 to 5 Years) and At-Risk Patients (6 to 64 Years) (1 of 2 - PCV)1990Pap Smear1992Adult Vgfpicn4204/05/1993Cervical Cancer Mfgkbctib98/13/2001 HPV/Fvikkk9604/05/20013616Sufwtafhm64/13/2011Zoster Vaccines (1 of 2)1COVID- 19 Vaccine (1 [...]
--- OUTSIDE RECORDS SUMMARY | 2025-06-16 08:05 | XMS_ITS | Encounter Summary ---
Author Organization [facility] Address [address] [place] [address] Care Team Providers Care Engraving Press Operator Name Role Phone Molian De Anda MD Primary Care Provider [phone] Valerie Groves LEATHER STAMPER Unavailable [phone] Karime Dias PMHNP-BC Unavailable [phone] Reason for Visit * ReasonCommentsMed Refill Encounter Details DateTypeDepartmentCare Team (Latest Contact Info)Fokiafikvnz22/17/2025Refill [facility] [address] [facility] [address] [place] [address] Karime Dias [facility] [address] [place] [address] JESSIKA (generalized anxiety disorder); Severe episode of recurrent major depressive disorder, without psychotic features (HCC); PTSD (post-traumatic stress disorder) Social History Tobacco UseTypesPacks/DayYears UsedDateSmoking Tobacco: Every JufJuywxlrjaz122.9 Started: 1985Passive Smoke Exposure: PastSmokeless Tobacco: Never [...] times a week08/07/2023How often do you attend gnosticism or samaritan services?Never08/07/2023o you belong to any clubs or organizations such as gnosticism groups, unions, fraternal or athletic groups, or school groups?No08/07/2023How often do you attend meetings of the clubs or organizations you belong to?Patient mvfwafks44/15/2024re you , , , , never , or living with a partner?Elbvjpa4308/07/2023 AUDIT-CAnswerDate RecordedQ1: How often do you have [...] at all 08/07/2023HQ-2AnswerDate RecordedPatient Health Questionnaire-2 Score5 01/22/2025[facility] [place] [facility] - Occupational Stress QuestionnaireAnswerDate RecordedDo you feel stress - tense, restless, nervous, or anxious, or unable to sleep at night because yourmind is troubled all the time - these days?To some cepzqw0708/07/2023Exercise Vital SignAnswerDate Recorded On average, how many [...] steady place to sleep or slept in [facility] (including now)?No08/07/2023Comments UnknownSex and Gender InformationValueDate RecordedSex Assigned at BirthNot on fileLegal AtlMdwrdy35/15/2023 7:47 PM EDTGender IdentityNot on fileSexual OrientationNot on filedocumented as of this encounter Plan of Treatment DateTypeDepartmentCare Team (Latest Contact Info)Kuikxrnfjdh57/03/2025 2:00 PM ESTOffice Visit [facility] [address] [facility] [address] [place] [address] Macarena Chang APRN-STOCKROOM CLERK [address] [place] [address] documented as of this encounter Goals GoalPatient Goal TypeAssociated ProblemsRecent ProgressPatient-Stated?Author Help patient manage antidepressant medication Care PlanPatient on antidepressant monitoring Shaikh Cornell MDdocumented as of this encounter Visit Diagnoses Diagnosis JESSIKA (generalized anxiety disorder) Generalized anxiety disorder Severe episode of recurrent major depressive disorder, without psychotic features (HCC) PTSD (post-traumatic stress disorder) Posttraumatic stress disorder documented in this encounter Additional Health Concerns Active ProblemsNoted DateDiagnosed DatePatient on antidepressant monitoring plan 4AssessmentNoted TimePHQ-9 Depression Total Score: 9:29 AM EDTdocumented as of this encounter Care Teams Team MemberRelationshipSpecialtyStart DateEnd Date Molina De Anda MD [address] [place] [address] PCP - GeneralFamily Medicine02/21/24 Valerei Groves NP Nurse PractitionerFamily Medicine02/21/24 Karime Dias [facility]PT[facility] [address] [address] [place] [address] Nurse PractitionerVib[facility]01/22/25documented as of this encounter
--- OUTSIDE RECORDS SUMMARY | 2025-06-16 08:05 | XMS_ITS | Encounter Summary ---
Author Organization [facility] Address [address] [facility] [place] [address] Care Team Providers Care Utilities Service Investigator Name Role Phone Molina De Anda MD Primary Care Provider [phone] Valerie Groves CARD TAPE CONVERTER OPERATOR Unavailable [phone] Karime Dias [facility] Un[facility] [phone] Reason for Visit * ReasonCommentsMed Refill Encounter Details DateTypeDepartmentCare Team (Latest Contact Info)Sbhhsaxufqu70/23/2025Refill [facility] [address] [facility] [address] [place] [address] Macarena Chang, PERFORATOR OPERATOR-BINDERY WORKER [address] [place] [address] JESSIKA (generalized anxiety disorder); Severe episode of recurrent major depressive disorder, without psychotic features (HCC); PTSD (post-traumatic stress disorder) Social History Tobacco UseTypesPacks/DayYears UsedDateSmoking Tobacco: Every GoqZkiomgerse138.9 Started: 1985Passive Smoke Exposure: PastSmokeless Tobacco: Never [...] times a week08/07/2023How often do you attend faith or evangelical services?Never08/07/2023o you belong to any clubs or organizations such as faith groups, unions, fraternal or athletic groups, or school groups?No08/07/2023How often do you attend meetings of the clubs or organizations you belong to?Patient jefdonaz62/15/2024re you , , , , never , or living with a partner?Uhzomrx3808/07/2023 AUDIT-CAnswerDate RecordedQ1: How often do you have [...] at all 08/07/2023HQ-2AnswerDate RecordedPatient Health Questionnaire-2 Score5 01/22/2025[place] [facility] [place] [facility] - Occupational Stress QuestionnaireAnswerDate RecordedDo you feel stress - tense, restless, nervous, or anxious, or unable to sleep at night because yourmind is troubled all the time - these days?To some olbatm7208/07/2023Exercise Vital SignAnswerDate Recorded On average, how many [...] steady place to sleep or slept in [facility] (including now)?No08/07/2023Comments UnknownSex and Gender InformationValueDate RecordedSex Assigned at BirthNot on fileLegal MkaCghxik30/15/2023 7:47 PM EDTGender IdentityNot on fileSexual OrientationNot on filedocumented as of this encounter Plan of Treatment DateTypeDepartmentCare Team (Latest Contact Info)Nbgqisjlxbo48/03/2025 2:00 PM ESTOffice Visit [facility] [address] [facility] [address] [place] [address] Macarena Chang APRN-BINDERY WORKER [address] [place] [address] documented as of this encounter Goals GoalPatient Goal TypeAssociated ProblemsRecent ProgressPatient-Stated?Author Help patient manage antidepressant medication Care PlanPatient on antidepressant monitoring Shaik Cornellh, MDdocumented as of this encounter Visit Diagnoses [...] De Anda MD [address] [place] [address] PCP - GeneralFamily Medicine02/21/24 Valerie Groves NP Nurse PractitionerFaarly Medicine02/21/24 Karime Dias [facility]NPCHO[facility] [address] [address] [place] [address] Nurse PractitionerCar[facility] Hospital Health01/22/25documented as of this encounter
--- OUTSIDE RECORDS SUMMARY | 2025-06-16 08:05 | XMS_ITS | Clinical Summary ---
Author Organization [facility] Address [address] [place] [address] Care Team Providers Care Transport Manager Name Role Phone Molina De Anda MD Primary Care Provider [phone] Valerie Groves BRICK TESTER Unavailable [phone] Karime Dias PMHNP- Unavailable [phone] Allergies Active AllergyReactionsCriticalityNoted CnczJrvkfoubEvuhnmkxggkVrpfw06/12/2023 Medications MedicationSigDispense QuantityRefillsLast FilledStart DateEnd DateStatus fexofenadine [...] DateGAD (generalized anxiety disorder)03/06/2025 Spinal stenosis, lumbosacral jkqnry3102/05/2025Spinal stenosis, cervical region 02/05/2025Sleep apnea01/22/2025Severe episode of recurrent major depressive disorder, without psychotic yhvwxiqk97/02/2025 Assessment & Plan (02/25/2025 12:45 PM EDT): Was referred to psych, they are currently managing meds Is off on FMLA for this PTSD (post-traumatic stress disorder)01/22/2025 Assessment & Plan (02/25/2025 7:23 AM EDT): Dx as per psych Abnormal Papanicolaou smear of cervix with positive human papilloma virus (HPV) test11/27/2024 Overview (11/27/2024): Pap smear 11/15 Hot flashes due to ezhybukto99/30/2025 Assessment & Plan (11/20/2024 4:37 PM EDT): Discussed insurance concern over dose of celexa, she takes for hot flashes she is willing to trial a decrease in dose to 20mg and will cut her current pill in half BMI 32.0-32.9,adult10/23/2024Overactive bladder due to prolapse of female genital organ10/02/2024Headache, menstrual migraine, with status migrainosus 08/12/2024Malaise and bemkfox1508/12/2024Detrusor muscle dznfrgefbl46/20/2025lass 1 obesity due to excess calories without [...] options for weight loss. Environmental and seasonal kudavmbmm20/20/2025 Assessment & Plan (08/12/2024 4:42 PM EST): Cont layla, add flonase History of GI bleed03/06/2024LUQ abdominal pain03/06/20242021Cvdyjnhqhkdk64/07/2024 Assessment & Plan (04/10/2024 6:44 PM EDT): [...] AFTER BM. Referral sent to GI Nicotine eyncmuhwuw03/22/2024 Assessment & Plan (02/25/2025 7:23 AM EDT): The patient has been advised of the risks of continued smoking: stroke, CT, all forms of cancer, lung disease, and [...] of the risks of continued smoking: stroke, CT, all forms of cancer, lung disease, and [...] of the risks of continued smoking: stroke, CT, all forms of cancer, lung disease, and [...] of the risks of continued smoking: stroke, CT, all forms of cancer, lung disease, and [...] of the risks of continued smoking: stroke, CT, all forms of cancer, lung disease, and . Options for quitting smoking include: cold turkey, hypnosis, acupuncture, nicotine replacement meds(gum, lozenges, and patches), Buproprion, and Varenicline. At this time pt is encouraged to evaluate their goals for wanting to quit smoking, and reach out toprovider when ready to start this process Antibiotic-induced yeast /22/2024 Assessment & Plan (08/15/2023 12:15 AM EST): Will order Fluconazola in case she develops abx induced yeast infection History of gastric cajhhk7708/04/2023 Assessment & Plan (11/13/2023 5:18 PM EDT): On B12 injection and required IV iron. Monitor Iron deficiency apzdkr3708/04/2023 Assessment & Plan (02/25/2025 12:45 PM EDT): [...] Iron due to prior gastric bypass surgery. Jbupynredwkh04/12/2023 Assessment & Plan (01/06/2025 6:10 PM EDT): [...] Elevate HOB if possible Current med: lansoprazole Zzzaryao76/12/2023 Assessment & Plan (02/25/2025 12:44 PM EDT): [...] mg. Follow up in 6 weeks. B12 vnxorzuuzh01/12/2023 Assessment & Plan (10/23/2024 6:11 PM EDT): [...] prior gastric bypass. Plantar fasciitis of right foot06/30/20234506Zxlbrcudk97/08/2023Uterine prolapse 06/30/2023 Resolved Problems ProblemNoted DateDiagnosed DateResolved DateUTI (urinary tract infection), zkkhoehxufynk58/24/202504/Well woman exam with routine gynecological exam / Assessment & Plan (11/20/2024 4:32 PM EDT): Thin prep: fu as per pap indications Monthly BSE Weight bearing exercise as well Encounter for screening mammogram for malignant neoplasm of oxfgdp4410/02/2024 01/22/2025MI 34.0-34.9,adultFemale genital symptoms /Problem related to unspecified psychosocial circumstances SmokingStress Assessment & Plan (01/06/2025 6:09 PM EDT): See bipolar entry Ecxeegmnhjaa82/20/202504/ute non-recurrent maxillary sinusitis /06/2025 Assessment & Plan (08/12/2024 4:41 PM EST): Zithromax , finish atb Fluids, rest Fu if not better, add steroid nasal spray Cutaneous abscess of abdominal wall/ Overview (08/12/2024): [employer] [id number] EXP: 10/22/2026 LOT # [id number] Assessment & Plan (08/12/2024 5:50 PM EST): [...] daily if no contraindications Screening for diabetes jjmdfytv48 Assessment & Plan (01/22/2024 5:28 PM EDT): Screen for T2 DM Encounter for screening mammogram for breast xqecnp30 Assessment & Plan (01/22/2024 5:29 PM EDT): Ordered mammogram. Seizure-like gqlrkvyd41 Assessment & Plan (01/22/2024 5:28 PM EDT): [...] both ears without spontaneous rupture of tympanic xevdzvgjl90Overactive vmupkaq1511/13/2023 01/06/2025utaneous abscess of groin Assessment & Plan [...] prednisone and benzonatate. Bipolar disorder with severe muyvzcftur04/12/202307/08/2024 Assessment & Plan (01/06/2025 6:09 PM EDT): [...] or concerns related to new medications. Breast shugzwcso06/06/2025 Assessment & Plan (07/04/2023 3:48 PM EST): Ordered mammogram Menorrhagia with regular cycle/ Encounters DateTypeDepartmentCare JwytRkcfmhcwhfl51/23/2025Refill [facility] [address] [place] [address] Macarena Chang MIXER OPERATOR HELPER HOT METAL-CONTRACT AGENT JESSIKA (generalized anxiety disorder); Severe episode of recurrent major depressive disorder, without psychotic features (HCC); PTSD (post-traumatic stress disorder)06/09/2025Refill [facility] [address] [place] [address] Karime Dias, PMHNP-BC JESSIKA (generalized anxiety disorder); Severe episode of recurrent major depressive disorder, without psychotic features (HCC); PTSD (post-traumatic stress disorder)06/02/2025 3:00 PM ESTOffice Visit [facility] [place] [facility] [address] [place] [phone] Macarena Chang, MIXER OPERATOR HELPER HOT METAL-CONTRACT AGENT Severe episode of recurrent major depressive disorder, without psychotic features (HCC)06/02/2025amboo flowsheet [facility] [place] [facility] [address] [place] [phone] Macarena Chang, MIXER OPERATOR HELPER HOT METAL-CONTRACT AGENT 06/02/20259068Pukpuj81/29/2025Telephone [facility] [place] [address] [place] [address] Rohan Burns LPC 04/09/2025 4:30 PM EDTSocial Work [facility] [place] [facility] [address] [place] [address] Rohan Burns LPC JESSIKA (generalized anxiety disorder) ; Severe episode of recurrent major depressive disorder, without psychotic features (HCC); PTSD (post-traumatic stress disorder)04/09/2025amboo flowsheet [facility] [place] [facility] [address] [place] [address] Rohan Burns LPC 04/09/20257349Zmittk23/11/2025 9:00 AM EDTTelemedicine [facility] [place] [facility] [address] [place] [address] Karime Dias, MARCELINOHNP-BC JESSIKA (generalized anxiety disorder) ; Severe episode of recurrent major depressive disorder, without psychotic features (HCC); PTSD (post-traumatic stress disorder) ; Insomnia, unspecified type; Yjuzbwybrdvv15/11/2282Sbiicj12/06/2025Refill [facility] [place] [facility] [address] [place] [address] Karime Dias, PMHNP-BC Severe episode of recurrent major depressive disorder, without psychotic features (HCC)03/25/2025 2:30 PM EDTSocial Work [facility] [place] [facility] [address] [place] [address] Rohan Burns LPC JESSIKA (generalized anxiety disorder) ; Severe episode of recurrent major depressive disorder, without psychotic features (HCC); PTSD (post-traumatic stress disorder)03/25/2025amboo flowsheet [facility] [address] [place] [address] Rohan Burns LPC 03/25/20251310Tehlqu25/26/2025Travelfrom Last 3 Months Family History Medical HistoryRelationNameCommentsDiabetesFatherCharlesHeart diseaseFather CharlesHypertensionFatherCharlesStrokeFatherCharlesBreast cancerMaternal GrandmotherThyroid cancerMaternal GrandmotherDepressionMotherConnieDiabetes MotherConnieBreast cancerMother's SisterRelationNameStatusCommentsDaughter 1 AliveDaughter 2AliveDaughter 3AliveFatherCharlesAliveMaternal Grandmother DeceasedMotherConnieAliveMother's SisterAliveSonAlive Social History Tobacco UseTypesPacks/DayYears UsedDateSmoking Tobacco: Every WhnEaaldtufqh222.9 Started: 1985Passive Smoke Exposure: PastSmokeless Tobacco: Never [...] times a week08/07/2023How often do you attend mandaeism or oriental orthodox services?Never08/07/2023o you belong to any clubs or organizations such as mandaeism groups, unions, fraternal or athletic groups, or school groups?No08/07/2023How often do you attend meetings of the clubs or organizations you belong to?Patient vicodupl25/15/2024re you , , , , never , or living with a partner?Yoqchaf2808/07/2023 AUDIT-CAnswerDate RecordedQ1: How often do you have [...] Health Questionnaire-2 Score5 01/22/2025[facility] [place] [facility] Occup[facility] Health - Occupational Stress QuestionnaireAnswerDate RecordedDo you feel stress - tense, restless, nervous, or anxious, or unable to sleep at night because yourmind is troubled all the time - these days?To some xuhzsu8108/07/2023Exercise Vital SignAnswerDate Recorded On average, how many [...] to sleep or slept in ashelter (including now)?No4Comments UnknownSex and Gender InformationValueDate RecordedSex Assigned at BirthNot on fileLegal VcdNuyjtc57/15/2023 7:47 PM EDTGender IdentityNot on fileSexual OrientationNot on file Last Filed Vital Signs Vital SignReadingTime TakenCommentsBlood Xpwxpucj83/6406/02/2025 2:52 PM EST Agaox284506/02/2025 2:52 PM BDOKqegedtresm09.6 ??C (97.8 ??F)02/25/2025 11:31 AM EDTRespiratory Ydkf757301/06/2025 4:32 PM EDTOxygen Uzsgipjjgu97%02/25/2025 11:31 AM EDTInhaled Oxygen Concentration--Rxfwyc77.7 kg (178 lb)06/02/2025 2:52 PM EST Cwumjx065.1 cm (5' 5 )10/02/2024 4:51 PM EDTBody Mass Index29.62010/02/2024 4:51 PM EDT Plan of Treatment DateTypeDepartmentCare Team (Latest Contact Info)Xswmossmalt34/03/2025 2:00 PM ESTOffice Visit [facility] [address] [place] [address] Macarena Chang, MIXER OPERATOR HELPER HOT METAL-CONTRACT AGENT [address] [place] [address] Goals GoalPatient Goal TypeAssociated ProblemsRecent ProgressPatient-Stated?Author Help patient manage antidepressant medication Care PlanPatient on antidepressant monitoring Shaikh Cornell MD Additional Health Concerns Active ProblemsNoted DateDiagnosed DatePatient on antidepressant monitoring plan 08/03/2023 Insurance Care Teams Team MemberRelationshipSpecialtyStart DateEnd Date Molina De Anda MD [address] [place] [address] PCP - GeneralFamily Medicine02/21/24 Valerie Groves NP Nurse PractitionerFamily Medicine02/21/24 Karime Dias, [facility] [address] [place] [address] Nurse PractitionerH[facility]01/22/25
[2025-06-16 08:31] VITALS: BP 110/70; PULSE 86; TEMP 36.7; O2SAT 99
[2025-06-16 09:15] VITALS: BP 111/55; BP 93/62; PULSE 68; PULSE 77; O2SAT 92; O2SAT 95
[2025-06-16] MEDS: LIDOCAINE HCL 2% 400 MG/20 ML MDV 12 ML INJ (09:17)
[2025-06-16] MEDS: METHYLPREDNISOLONE ACETATE 40 MG/ML VIAL 80 MG INJ (09:20)
[2025-06-16] MEDS: BUPIVACAINE HCL 0.25% PF 25 MG/10 ML VIAL 4 ML INJ (09:20)
--- NOTE | 2025-06-16 09:28 | P.ON_ITS ---
Date of procedure: 06/16/25 Pre-op diagnosis: Pain due to lumbar spondylosis without myelopathy Post-op diagnosis: same as pre-op Procedure: Procedure: Bilateral L4-5, L5-S1 radiofrequency ablation Medications: Bupivacaine 0.25% 6cc, lidocaine 2% 6cc, depomedrol 80mg The patient was seen and examined in the preoperative holding area.? The site was marked.? Written informed consent was obtained and placed on the chart.? The patient was brought to the medical procedure unit and placed in the prone position.? A timeout was completed verifying correct patient, procedure, positioning, and special requirements.? The skin overlying the target points, the designated medial branch, were prepped and draped in the usual sterile fashion.? The target point was achieved with a 20-gauge 15 cm with a 10 mm curved active tip radiofrequency cannula under direct fluoroscopic visualizati on.? The needle was inserted at level L4 on the right side. Needle tip position was confirmed with lateral fluoroscopic position.? Motor stimulation was carried out at 2 Hz up to 5 volts with the absence of extremity activity.? This was repeated at level L5, S1 on right side.?? Sensory stimulation was carried out.? Concordant pain was realized at the above- mentioned sites.? Then radiofrequency lesioning was carried out times 90 seconds at 80 degrees times 2 lesions at each level.? The radiofrequency probe was removed prior to cannula removal.? The above-mentioned injectate was placed in 1 mL increments.? The needle was removed. The same procedure, with the same steps, was then completed on the left side at the same levels. Insertion sites were covered.? The patient was taken to the postoperative recovery area and monitored for an appropriate length of time before being found suitable for discharge in the company of a responsible adult. Anesthesia: Local Surgeon: Bandar Eden Pathology: none sent Condition: stable Disposition: no change
== END 2025-06-16 09:33 | disposition home or self-care (01) ==
PROVIDERS: PCP Nurse Practitioner; Visit Provider Anesthesiology
DX: M47.816 Spondylosis without myelopathy or radiculopathy, lumbar region (principal); M54.50 Low back pain, unspecified; G89.29 Other chronic pain
CPT/HCPCS: 64635; 64636; J0665; J1010

== ENCOUNTER 2025-07-05 10:57 | Outpatient (OUT) | payer OTHER, SELFPAY ==
--- OUTSIDE RECORDS SUMMARY | 2019-11-19 06:15 | XMS_ITS | Continuity of Care Document ---
Author Organization [facility] Address [address] [place] [address] [place] [address] Phone Care Team Providers Care Mold Filling Operator Name Role Phone Mathew Chang MD Unavailable Unavailable Procedures Procedure Date POSTOP FOLLOW-UP VISIT Advance Directives Directive Yes / No Effective Date File Name No Information Encounters Encounter Description Practice Location Reason(s) For Visit Diagnoses Date Provider Encounter Disposition [facility] [employer] [facility], [address] [place] [address], [id number], [place] tel:[phone] [facility] No Information Bernardo Carmona. [address], [id number], [place]. tel:[phone] [facility], [address] [place] [address], [id number], [place] tel:[phone] [facility] No Information Lacidanielito Londono. [address], [id number], [place]. tel:[phone] [facility], [address] [place] [address], [id number], [place] tel:[phone] [facility] IP No Information Lacidanielito Londono. [address] [facility] [address], [place], [id number], [place]. tel:[phone] [facility], [address] [place] [address], [id number], [place] tel:[phone] [facility] IP No Information Bernardo Carmona. [address] [facility] [address], [place], [place], [id number], [place]. tel:[phone] [facility], [address] [place] [address] [address], [place], [place], [id number], [place] tel:[phone] [facility] No Information Bernardo Carmona. [address] [facility] [address], [place], [place], [id number], [place]. tel:[phone] [facility] [facility], [address] [place] [address] [address], [place], [place], [id number], [place] tel:[phone] [facility] No Information Bernardo Carmona. [address] [facility] [address], [place], [place], [id number], [place]. tel:[phone] Family History Family Member Type Diagnosis Age At Onset No Information Payers Payer name Insurance type Identifiers Authorization(s) Com rosario Ruiz CI riber ID: [id number] Name: Coverage Status Eligibility Check on: UnknownRelationship to Subscriber: selfPayer Address: [facility] [address], [place], [place], [id number] Phone: [phone] Social History Type Description Quantity Date Captured Comments Sex Female Smoking Status No Information Current Gender Female (finding) Chief Complaint And Reason For Visit No Information History Of Present Illness Encounter Date Complaint History Of Prese nt Illness No Information Functional Status Date Description Comments No Information Instructions Date Instruction Additional Infor mation No Information Assessments Type Assessment Date No Information
--- OUTSIDE RECORDS SUMMARY | 2024-09-03 10:30 | XMS_ITS ---
Author Organization The [facility] in [place] Address [address] [place] [address] Care Team Providers Care Coding Specialist Name Role Phone None, Unknown or Primary Care Provider Unavailab Mathew Lee Unavailable [phone] REASON FOR VISIT Left foot, surgical discussion about removal of hardware Encounters Encounter Location Date Provider Diagnosis [facility] (PODIATRY) [address] [place] [address] [place] [address] 09/03/2024 Mathew Hoff Left foot pain M79.672 Assessments Encounter Date Diagnosis (ICD Code) Assessment Notes Treatment Notes Treatment Clinical Notes Section Notes 09/03/2024 Left foot pain (ICD-10 - M79.672 ) Plan Of Treatment Pending Test Test Name Order Date XR Foot LT (3 views) * 09/03/2024 Progress Notes * Talia RUTHERFORDDOB:[birth year] (55 yo F)Acc No.[id number]:09/03/2024 UNLOCKED PROGRESS NOTE Follow Up Patient: Talia FREED :?Mathew Hoff DPLashaun, MSDOB:1970???Age: 54 Y???Sex:FemaleDate:09/03/2024Phone:[phone]:270 [address] [id number]:Unknown or None Subjective: * Chief Complaints: * 1 . Left foot, surgical discussion about removal of hardware. * Medical History: Objective: * Vitals: Assessment: * Assessment: 1.?Left foot pain - M79.672??? Plan: * Treatment: ?Imaging: XR Foot LT (3 views) * * * Electronic signature of Mathew Hoff DPM on 07/05/2025 at 11:02 AM ESTSign off status: PendingVisit Status:?N/S N/C (No Show/No Charge) * Provider: Miguel [place] DPM, MS Date: 0 09/03/2024 Generated for Printing/Faxing/eTransmitting on:?07/05/2025 11:02 AM EST
--- OUTSIDE RECORDS SUMMARY | 2025-06-25 14:00 | XMS_ITS | Encounter Summary ---
Author Organization [facility] Address [address] [place] [address] Care Team Providers Care Lever Tender Name Role Phone Molina De Anda MD Primary Care Provider [phone] Valerie Groves MEDICAL DETAIL REPRESENTATIVE Unavailable [phone] Karime Dias [facility]- Unavailable [phone] Reason for Visit * ReasonCommentsMed ManagementFollow-up Encounter Details DateTypeDepartmentCare Team (Latest Contact Info)Fcbazrzqvze14/03/2025 2:00 PM ESTOffice Visit [facility] [address] [place] [address] Macarena Chang, INDUSTRIAL MAINTENANCE MANAGER-[facility] [address] [facility] [address] [place] [address] Severe episode of recurrent major depressive disorder, without psychotic features (HCC); Bipolar disorder with severe depression (HCC); JESSIKA (generalized anxiety disorder); PTSD (post-traumatic stress disorder) Social History Tobacco UseTypesPacks/DayYears UsedDateSmoking Tobacco: Every ZpwTginubfbad790.9 Started: 1985Passive Smoke Exposure: PastSmokeless Tobacco: Never [...] times a week08/07/2023How often do you attend baptist or hindu services?Never08/07/2023o you belong to any clubs or organizations such as baptist groups, unions, fraternal or athletic groups, or school groups?No08/07/2023How often do you attend meetings of the clubs or organizations you belong to?Patient /15/2024re you , , , , never , or living with a partner?Xahdmwo0508/07/2023 AUDIT-CAnswerDate RecordedQ1: How often do you have [...] at all 08/07/2023HQ-2AnswerDate RecordedPatient Health Questionnaire-2 Score5 01/22/2025[facility] [place] [facility] Occupational Health - Occupational Stress QuestionnaireAnswerDate RecordedDo you feel stress - tense, restless, nervous, or anxious, or unable to sleep at night because yourmind is troubled all the time - these days?To some bbbvnx9508/07/2023Exercise Vital SignAnswerDate Recorded On average, how many [...] steady place to sleep or slept in [facility] (including now)?No08/07/2023Comments UnknownSex and Gender InformationValueDate RecordedSex Assigned at BirthNot on fileLegal KchGcrirz34/15/2023 7:47 PM EDTGender IdentityNot on fileSexual OrientationNot on filedocumented as of this encounter Last Filed Vital Signs Vital SignReadingTime TakenCommentsBlood Pqhneems379/6406/25/2025 1:50 PM EST Nuffj997706/25/2025 1:50 PM ESTTemperature--Respiratory Rate--Oxygen Saturation-- Inhaled Oxygen Concentration--Kxqflq30.5 kg (184 lb)06/25/2025 1:50 PM ESTHeight --Body Mass Index30.6203 4:51 PM EDTdocumented in this encounter Plan of Treatment DateTypeDepartmentCare Team (Latest Contact Info)Tlosjmrlanl52/08/2026 10:00 AM ESTOffice Visit [facility] [address] [facility] [address] [place] [address] Macarena Chang, INDUSTRIAL MAINTENANCE MANAGER-SUPPLIES PACKER [address] [facility] [address] [place] [address] documented as of this encounter Goals GoalPatient Goal TypeAssociated ProblemsRecent ProgressPatient-Stated?Author Help patient manage antidepressant medication Care PlanPatient on antidepressant monitoring planShaikh Gao MDdocumented as of this encounter Visit Diagnoses Diagnosis Severe episode of recurrent major depressive disorder, without psychotic features (HCC) Bipolar disorder with severe depression (HCC) JESSIKA (generalized anxiety disorder) Generalized anxiety disorder PTSD (post-traumatic stress disorder) Posttraumatic stress disorder documented in this encounter Additional Health Concerns Active ProblemsNoted DateDiagnosed DatePatient on antidepressant monitoring plan 4AssessmentNoted TimePHQ-9 Depression Total Score: 9:29 AM EDTdocumented as of this encounter Care Teams Team MemberRelationshipSpecialtyStart DateEnd Date Molina De Anda MD PCP - GeneralFamily Medicine02/21/24 Valerie Groves NP Nurse PractitionerFamily Medicine02/21/24 Karime Dias PMHNPJ[facility] [address] [facility] [address] [place] [address] Nurse PractitionerBehavioral Health01/22/25documented as of this encounter
--- OUTSIDE RECORDS SUMMARY | 2025-07-03 11:18 | XMS_ITS | Continuity of Care Document ---
Author Organization [facility] Address [address] [place] [address] Phone Care Team Providers Care Inter Fold Roll Cutter Name Role Phone Pascale Arana Primary Care Provider Shun Arshad MD Other Provider Loc Aguayo MD Attending Provider Pascale Arana Attending Provider Clinton Del Toro APRN Attending Provider Mary Kaufman MD Attending Provider [phone] Mary Kaufman MD Other Provider Care Teams Patient Care Team Team Status: Active Member Role/Relationship Status Dates Pascale Arana NP-C Primary Care Provider Active Visit Care Team Team Status: Active Member Role/Relationship Status Dates Pascale Arana NP-C Primary Care Provider Active Start: April 23, 2025 Shun Arshad MDOther ProviderActiveStart: April 23, 2025 Loc Aguayo MDAttending ProviderActiveStart: April 23, 2025 Visit Care Team Team Status: Inactive Member Role/Relationship Status Dates Pascale Arana NP-Odell Primary Care Provider Active Start: April 30, 2025 End: April 30, 2025Lisa J Aichholz , AIR QUALITY TECHNICIAN-CAttending ProviderActiveStart: April 30, 2025 End: April 30, 2025 Visit Care Team Team Status: Active Member Role/Relationship Status Dates Pascale Arana AIR QUALITY TECHNICIAN-C Primary Care Provider Active Start: May 05, 2025 Pascale Arana , AIR QUALITY TECHNICIAN-CAttending ProviderActiveStart: May 05, 2025 Visit Care Team Team Status: Inactive Member Role/Relationship Status Dates Pascale Arana AIR QUALITY TECHNICIAN-C Primary Care Provider Active Start: May 05, 2025 End: May 05, 2025Clinton Del Toro APRNAttending ProviderActiveStart: May 05, 2025 End: May 05, 2025 Visit Care Team Team Status: Inactive Member Role/Relationship Status Dates Pascale Arana , AIR QUALITY TECHNICIAN-C Primary Care Provider Active Start: May 26, 2025 End: May 26, 2025Pascale Arana AIR QUALITY TECHNICIAN-CAttending ProviderActiveStart: May 26, 2025 End: May 26, 2025 Visit Care Team Team Status: Inactive Member Role/Relationship Status Dates Pascale Arana AIR QUALITY TECHNICIAN-C Primary Care Provider Active Start: June 05, 2025 End: June 05, 2025Pascale Arana AIR QUALITY TECHNICIAN-CAttending ProviderActiveStart: June 05, 2025 End: June 05, 2025 Visit Care Team Team Status: Active Member Role/Relationship Status Dates Pascale Arana , AIR QUALITY TECHNICIAN-C Primary Care Provider Active Start: June 06, 2025 Mary Kaufman MDAttending ProviderActiveStart: June 06, 2025 Mary Kaufman MDOther ProviderActiveStart: June 06, 2025 Patient Care Team Team Status: Inactive Member Role/Relationship Status Dates Pascale Arana , AIR QUALITY TECHNICIAN-C Primary Care Provider Active Start: July 03, 2025 End: July 03, 2025Pascale Arana AIR QUALITY TECHNICIAN-CAttending ProviderActiveStart: July 03, 2025 End: July 03, 2025 Chief Complaint and Reason for Visit Chief Complaint Admit Date G56.01 April 23, 2025 8: 25am Established Patient April 30, 2025 4: 13pm REF GERD, CARA, BARIATRIC SURGERY STATUS May 05, 2025 2:21pm cough, runny nose May 26, 2025 3 :57pm depression June 05, 2025 2:50pm dyspepsia,hx of gastric bypass June 06, 2025 9:23am surgical clearance July 03, 2025 3:40pm Reason for Visit Admit Date Class 1 obesity due to exces s [...] :21pm Dyspepsia May 05, 2025 2 :21pm History of GI bleed May 05, 2025 2 :21pm CARA (iron deficiency anemia) April 2:21pm H/O gastric bypass May 05, 2025 2 :21pm Environmental and seasonal allergies Nov emb2024 3:57pm Overweight May 26, 2025 3 :57pm Bronchitis May 26, 2025 3 :57pm JESSIKA (generalized anxiety disorder) Novem 2024 2:50pm Severe episode of recurrent major depressive disorder, with psychotic features June 05, 2025 2:50pm Class 1 obesity due to exces s calories without serious comorbidity in adult July 03, 2025 3:40pm CARA (iron deficiency anemia) July 032024 3:40pm Nicotine dependence July 03, 2025 3:40pm Pre-operative clearance July 03, 2 025 3:40pm Allergies, Adverse Reactions, Alerts Allergen Type Severity Reaction Last Updated Verified Status penciclovir Allergy Unknown hives May 26, 2025 1:36pm Ye s Active Penicillins Allergy Unknown Hives May 26, 2025 1:36pm Ye s Active Social History Smoking Status Status Start [...] dependence April 23, 2025 6:28pm Unknown Active Insomnia June 16, 2025 8:44am Unknown A ctive JESSIKA (generalized anxiety disorder) April 23, 2025 6 :22pm Unknown Active PTSD (post-traumatic stress disorder) April 23 6:23pm Unknown Active Piriformis syndrome of right side March 25, 2025 8:30am Unknown Active Spinal stenosis, lumbosacral region April [...] April 23, 2025 6:26pm Un known Active Pre-operative clearance July 03, 2025 7:23am Unk nown Active Dyspepsia May 05, 2025 2:03pm Unknown Ac tive Fibromyalgia April 23, 2025 6:27pm Unknown Act ada Abnormal Papanicolaou smear of cervix with positive human papilloma virus (HPV) test April 23, 2025 6:24pm Unknown Active Malaise and fatigue April 23, 2025 6:28pm Unknown Active Overweight May 26, 2025 4:42pm Unknown Ac tive Environmental and seasonal allergies April 07 7:37pm Unknown Active Uterine prolapse April 23, [...] menopause April 23, 2025 6:28pm Unknown Active Inactive/Resolved Problems Problem Diagnosis/Recorded Date Onset Date Stat H/O gastric bypass April 23, 2025 6:27pm Unknown Resolved Bronchitis May 26, 2025 4:43pm Unknown Re solved Medications Medication Status Dose Units Route Directions Qty Days Refills S tart Date Stop Date End Date Reason(s) Instructions Adherence Albuterol Sulfate 90 mcg/actuation HFA aerosol inhaler Discontinued 2 PUFF INHALATION Every 6 hours a s needed for shortness of breath or wheezing 8.5 0Sept2024 10:36amNovember 2024 11:25amShortness of breath Shortness of breathFexofenadine 180 mg yphrlaFqobqw025ZMPFOrswe901Jpqvvfgzb 15th, 2025 7:36pmEnvironmental and seasonal allergies Other allergic rhinitisComplies with drug therapySucralfate (Carafate) 1 gram xdmnagAgopvsoxytbs6NGUF6p/Day before meals & ncuefja7239Wwczbhfh 4th, 2025 7:29amDecember 2024 4:07pmGastroesophageal reflux disease without esophagitis Gastro-esophageal reflux disease without esophagitisGabapentin 300 mg capsule Kehoci722KSRPKffgk times neubp467Lcmlazty2024 3:07pmFibromyalgia FibromyalgiaComplies with drug therapyOmeprazole 40 mg capsule,delayed release(DR/EC)Zjbjux54XEGGApjec mnwra252150Crwybmjl 17th, 2025 12:00amComplies with drug therapyAlbuterol Sulfate 90 mcg/actuation HFA aerosol inhalerActive2 PUFFINHALATIONEvery 6 hours as needed for shortness of breath or wheezing8.50 June 10, 2025 11:25amShortness of breath Shortness of breathComplies with drug therapyZolpidem 10 mg nlxocdVzzjnk91JKRK Bedtime as needed for mettr52130Cghvpeim 24th, 2025 8:44amInsomnia Insomnia, unspecifiedComplies with drug therapyFluticasone Propionate 50 mcg/actuation spray,ceuvaguyrhXxxfyb4MQTINWFXLFRCOBIDbwjh988Qropdymm 2024 9:04pmEnvironmental and seasonal allergies Other allergic rhinitisComplies with drug therapyCyclobenzaprine 10 mg tablet DiscontinuedMGPOSept2024 11:00pmOctober 2024 9:25amTolterodine 4 mg capsule,extended release 24hrDiscontinuedMGPOSept2024 11:00pm May 05, 2025 1:25pmMeloxicam 15 mg tabletDiscontinuedMGPOSept2024 11:00pmNov2024 1:39pmFexofenadine 180 mg tabletDiscontinuedMGPO March 24, 2025 11:00pmSept2024 7:37pmLansoprazole 30 mg capsule,delayed release(DR/EC)DiscontinuedMG2024 11:00pm May 26, 2025 1:39pmGabapentin 300 mg capsuleDiscontinuedMGPOSept2024 11:00pmOctober 2024 9:25amZolpidem 10 mg esehegUpxkwpcbovpw46JVMW Bedtime as needed for sleepMarch 24, 2025 11:00pmNov2024 8:45am Albuterol Sulfate 90 mcg/actuation HFA aerosol inhalerDiscontinuedINHALATION March 24, 2025 11:00pmSept2024 10:38amFluticasone Propionate 50 mcg/actuation spray,mtovcimeodBolxkruwaqsh1BPQPGXRMGFAEXOGAv DirectedSe2024 11:00pmDecember 2024 9:05pmCholecalciferol (Vitamin D3) 125 mcg (5,000 unit) fdcoibiTmzdsw176BWXCZKxeajZwchrqxst 1st, 2025 11:00pmComplies with drug therapyDuloxetine 30 mg capsule,delayed release(DR/EC)Gershbdqrttp99RSDS BedtimeSept2024 11:00pmDece2024 4:04pmDuloxetine 60 mg capsule,delayed release(DR/EC)Xqkopl16LBWJ.amSeptember 2024 11:00pmComplies with drug therapyCariprazine (Vraylar) 3 mg capsuleDiscontinuedMGPOSept2024 11:00pmOctober 2024 9:23amCyclobenzaprine 10 mg jxnajxWzgyfg58RM POThree times daily as needed for muscle spasmOct2024 9:23amComplies with drug therapyGabapentin 300 mg obmnitrQykkazqrugdn800UEWNXhbiv times daily April 26, 2025 9:25amNovember 2024 3:08pmCyanocobalamin (Vitamin B-12) 1,000 mcg luxqniLsztsjyfskkv5129AGPERBoffdFnuywgw 2024 11:00pmDece2024 4:07pmCariprazine (Vraylar) 4.5 mg capsuleActive4.5MGPODailyOct2024 11:00pmComplies with drug therapyEstradiol 0.01 % (0.1 mg/gram) cream Gfmfza2MTLUPANERQgqin a WeekOct2024 11:00pmComplies with drug therapy Sucralfate (Carafate) 1 gram gwfnxtLircnwbrqiub5ZEZQ2l/Day before meals & oglxlwt3376Nhntvua 7th, 2025 11:00pmNov2024 7:29amGastroesophageal reflux disease without esophagitis Gastro-esophageal reflux disease without esophagitisCyanocobalamin (Vitamin B- 12) 1,000 mcg ajbzkqUmksqv7944CVFFS.QODDecember 2024 4:04pmComplies with drug therapyMirabegron (Myrbetriq) 50 mg tablet extended release 24 pbQyyvfk86RY PODailyOct2024 11:00pmComplies with drug therapyEsomeprazole Magnesium (Nexium Packet) [address] for susp in lvamboAuktywstrhks44BHMY Okprp60168Ygyuptx 12th, 2025 11:00pmNov2024 1:38pmDoxycycline Hyclate 100 mg efyawupPtebvheqwpyu356XMKKSuohj ocety734JpojdqqqMay 26, 2025 12:00am July 03, 2025 4:04pmBronchitis Bronchitis, not specified as acute or chronicBenzonatate 200 mg kcsnkplTcctyg315 MGPOThree times daily as needed for ybnyb157XamwnucfMay 26, 2025 12:00amBronchitis Bronchitis, not specified as acute or chronicComplies with drug therapy Tolterodine 4 mg capsule,extended release 21kmXiscwn3WZWDdtmfgFgidsfbj 11th, 2025 12:00amComplies with drug therapySucralfate (Carafate) 1 gram tabletActive1 GMPO3x/Day before meals & bedtime as neededDece2024 4:05pm Gastroesophageal reflux disease without esophagitis Gastro-esophageal reflux disease without esophagitisComplies with drug therapy Lamotrigine 25 mg cvbztgWqnwqp25FKVLXsqydRfjzyxal 2024 12:00amComplies with drug therapy Relevant Diagnostic Tests and/or Laboratory Data Laboratory Results Test Collection Date/Time Result Date/Time Result Interpretation Reference Range Result Comment Performing Site Urine Other Casts May 05, 2025 7:38am NONE SEEN #/LPFNONE SEENVitamin B12 LevelMay 05, 2025 7:44amOct2024 7:44am>2000 pg/mLAbnormal (applies to non-numeric results)[id number] at: [email or web address] [id number] Director: Hector Franco PhD, Phone: [phone] 13th, 2025 7:44am May 05, 2025 7:55tt907 mg/iS545-776Xnrsqfset at: [email or web address] [id number] Director: Hector Franco PhD, Phone: [phone] SaturationOct2024 7:44amOctober 2024 7:44am27.4 %25-Hydroxy Vitamin D TotalOct2024 7:44amOct2024 7:44am 69.7 ng/mL<20 ng/mL Vit D -<30 ng/mL Vit D kzloacdbexcb62-994 ng/mL Vit D sufficient>100 ng/mL Potential ToxicityFerritinOct2024 7:44am May 05, 2025 7:44am30.0 ng/mL8.0-252.0Cholesterol/HDL RatioOctober 2024 7:44amOct2024 7:44am2.33.3 - 4.4 LOW RISK4.4 - 7.1 AVERAGE RISK7.1 - 11.0 MODERATE RISK>11.0 HIGH RISKAnion GapOct2024 7:44am May 05, 2025 7:44am13.1Basophils # (Auto)May 05, 2025 7:44amOctober 2024 7:44am0.1 10 3/uL0.0-0.1Urine Other CrystalsMay 05, 2025 7:38am None Seen #/HPFNone SeenIron LevelOct2024 7:44amOct2024 7:44am83.0 ug/dL50.0-170.0Cholesterol LevelOctober 2024 7:44amOctober 2024 7:97tq376 mg/dL<=200Albumin/Globulin RatioOctober 2024 7:44am May 05, 2025 7:44am1.2Basophils (%) (Auto)May 05, 2025 7:44amOctober 2024 7:44am1.1 %0.2-2.0Urine BacteriaOct2024 7:38amTRACE #/HPF Abnormal (applies to non-numeric results)NONE SEENTotal Iron Binding Capacity May 05, 2025 7:44amOct2024 7:97xh495.0 ug/dL250.0-450.0HDL CholesterolOctober 2024 7:44amOctober 2024 7:44am51 mg/dL40-60> or =60 mg/dl - LOW CARDIOVASCULAR RISK<40 mg/dl - HIGH CARDIOVASCULAR RISKAlbumin May 05, 2025 7:44amOctober 2024 7:44am3.6 g/dL3.4-5.0Eosinophils # (Auto)May 05, 2025 7:44amOctober 2024 7:44am0.4 10 3/uL0.0-0.7Urine BilirubinOctober 2024 7:38amNEGATIVENEGATIVELDL Cholesterol, Calculated May 05, 2025 7:44amOctober 2024 7:44am52.2 mg/dL<100 mg/dl OMNXXDV053-064 mg/dl NEAR OR ABOVE EGHZUPV994-097 mg/dl BORDERLINE MJGI096-136 mg/dl HIGH>190 mg/dl VERY HIGHAlkaline PhosphataseOctober 2024 7:44am May 05, 2025 7:44am95 U/V43-944Qiqdoeokmaj (%) (Auto)May 05, 2025 7:44amOctober 2024 7:44am6.2 %0.9-7.0Urine Occult BloodOctober 2024 7:38amNEGATIVENEGATIVETriglycerides LevelOctober 2024 7:44amOctober 2024 7:44am64 mg/dL<=150Alanine Aminotransferase (ALT/SGPT)May 05, 2025 7:44amOctober 2024 7:44am25 U/E80-98DqfjqqjtcrTjemfhb 2024 7:44am May 05, 2025 7:44am40.7 %36.0-48.0Urine AppearanceOct2024 7:38amCLEARCLEARVLDL CholesterolOctober 2024 7:44amOctober 2024 7:44am12.8 mg/dLAspartate Amino Transf (AST/SGOT)May 05, 2025 7:44am May 05, 2025 7:44am23 U/D07-61KairgkpsuxQlkpwst 2024 7:44amOctober 2024 7:44am13.6 g/dL12.0-16.0Urine ColorOctober 2024 [...] 2025 7:44amOctober 2024 7:44am2.7 10 3/uL1.2-3.8Urine Leukocyte EsteraseOctober 2024 7:38amNEGATIVENEGATIVEChloride LevelOctober 2024 7:44amOctober 2024 7:31ze806 mmol/P29-170Vlnbsnnnkyi (%) (Auto)May 05, 2025 7:44amOctober 2024 7:44am39.2 [...] non-numeric results)1.005-1.025Glucose LevelOctober 2024 7:44amOctober 2024 7:44am77 mg/nI42-271Hotg Platelet Volume May 05, 2025 7:44amOctober 2024 7:44am9.7 fL9.5-13.5Urine Squamous Epithelial CellsOctober 2024 7:38amFEW #/LPFAbnormal (applies to non- numeric results)NONE/RAREPotassium LevelOctober 2024 7:44amOctober 2024 7:44am4.0 mmol/L3.5-5.1Neutrophils # (Auto)May 05, 2025 7:44amOctober 2024 7:44am3.4 10 3/uL1.4-6.5Urine UrobilinogenOctober 2024 7:38am 0.2 EU/dL0.2-1.0Sodium LevelOctober 2024 7:44amOctober 2024 7:44am 144 mmol/H151-417Wyaiqwnfkgz (%) (Auto)May 05, 2025 7:44amOctober 2024 7:44am48.2 %43.0-75.0Urine WBCOctober 2024 7:38amNONE SEEN #/HPFNONE SEENTotal BilirubinOctober 2024 7:44amOctober 2024 7:44am0.3 mg/dL 0.2-1.0Platelet CountOctober 2024 7:44amOctober 2024 7:05ah033 10 3/oA080-762Fetkd ProteinOctober 2024 7:44amOctober 2024 7:44am6.6 g/dL6.4-8.2Red Blood CountOctober 2024 7:44amOctober 2024 7:44am4.22 10 6/uL4.20-5.40Red Cell Distribution WidthOctober 2024 7:44amOctober 2024 7:44am12.6 %11.0-15.0Corrected White Blood CountOctober 2024 7:44amOctober 2024 7:44am7.0 10 3/uL4.0-11.0 Vital Signs Vital Reading Result Reference Range Collection Date/Time Height 65 [in_i] April 30, 2025 3:08gxAkkfos61.08 kgOct2024 3:44pmBody Iurekhlxiqh05 [degF]97.6-99.0Oct2024 3:44pmHeart Rate65 /gfm71-475Khcwfkm 8th, 2025 3:44pmRespiratory rate16 /aky31-31Dmjnelq 8th, 2025 3:44pmOxygen saturation by Pulse tavyotbs71 %95-100Oct2024 3:44pmBP Asgkvpvq60 mm[Hg]100-140 April 30, 2025 3:44pmBP Wxcomfssj30 mm[Hg]60-100Oct2024 3:44pmBMI (Body Mass Index)29.3 kg/e8RgkrdwzApril 30, 2025 3:83ukDsefqd13 [in_i]May 05, 2025 1:75svPvrimw63.83 kgOct2024 1:29pmHeart Rate83 /wbm32-894CpruwrfMay 05, 2025 1:29pmBP Vbijqbpf08 mm[Hg]100-140Oct2024 1:29pmBP Jyyloityx67 mm[Hg]60-100Oct2024 1:29pmBMI (Body Mass Index)29.2 kg/m2 May 05, 2025 1:90ktLcmvnp74 [in_i]May 26, 2025 4:79muGpdfpy89.37 kg May 26, 2025 4:20pmBody Nhuoencmiba36.5 [degF]97.6-99.0Nov2024 4:20pmHeart Rate93 /agl11-102Rmfqvqim 3rd, 2025 4:20pmRespiratory rate18 /min 12-24Nov2024 4:20pmOxygen saturation by Pulse yculwfbr49 %95-100 May 26, 2025 4:20pmBP Pgnzaqbe77 mm[Hg]100-140Nov2024 4:20pmBP Xcowtrzsa51 mm[Hg]60-100Nov2024 4:20pmBMI (Body Mass Index)29.1 kg/m2 May 26, 2025 4:64phQssduw01 [in_i]June 05, 2025 3:29hgDkpwpw04.70 kg June 05, 2025 3:19pmBody Uasmfnqblkz83.6 [degF]97.6-99.0June 05, 2025 3:19pmHeart Rate85 /oqn26-300ZbxyqlltJune 05, 2025 3:19pmRespiratory rate16 /wvi07-13EdpvccnoJune 05, 2025 3:19pmOxygen saturation by Pulse aynfdfie52 %95-100 June 05, 2025 3:19pmBP Xajoxgir602 mm[Hg]100-140June 05, 2025 3:19pm BP Epxfkokmi21 mm[Hg]60-100June 05, 2025 3:19pmBMI (Body Mass Index)29.9 kg/w3TnwpxfciJune 05, 2025 3:92cvOsueqb05 [in_i]June 06, 2025 9:34amWeight 80.28 kgJune 06, 2025 9:34amHeart Rate82 /eub35-869QwttebsyJune 06, 2025 11:52amRespiratory rate16 /wvb05-12IutzdztaJune 06, 2025 11:52amOxygen saturation by Pulse %95-100June 06, 2025 11:52amBP Alpewcgb56 mm[Hg] 100-140June 06, 2025 11:52amBP Tmgfivhhv98 mm[Hg]60-100June 06, 2025 11:02xfLzqbmy28.42 kgce2024 3:46pmBody Jwfophqzsrk46.3 [degF] 97.6-99.0Dece2024 3:46pmHeart Rate82 /yck35-723GjmrdczoJuly 03, 2025 3:46pmRespiratory rate18 /elb70-12Xcioyjer 11th, 2025 3:46pmOxygen saturation by Pulse ytpiqcsy11 %95-100July 03, 2025 3:46pmBP Zamucjfc869 mm[Hg]100-140 July 03, 2025 3:46pmBP Mudmyuvdi04 mm[Hg]60-100Decemb2024 3:46pm Advance Directives Advance Directive Response Recorded Date/ Time Advance Directives No March 6:38pm Insurance Providers Guarantor Letitia Quintanilla Address [address] [facility] [address]Bbkfqob Info.Home Phone: Coverage Status Update:2025 Payer Group Member ID Coverage Type Subscriber Relationship to Subscriber Effective Date Expiration Date [employer] Id: [id number] [place] Letitia Id: [id number] [address] [place] [address] Home Phone: Email: [email or web address] Encounters Encounter Location(s) Arrival/Admit Date Discharge/Departure Date Discharge/Departure Disposition Provider(s) Non-patient / Non-visit -[facility] April 23, 2025 8:25am Letitia Salazar MDDeparted Physician/Provider Office Visit-[facility] [place] 20[place] 4:13pmOctober 2024 5:27pmDischarged to home care or self care (routine discharge)Ann Malik-[facility] / [facility] 8:38amCROW Malikeparted Physician/Provider Office Visit-[facility]October 2024 2:21pmOctober 2024 2:59pmDischarged to home care or self care (routine discharge)Clinton Del Toro APRNDeparted Physician/Provider Office Visit-[facility] Family Medicine [place] 2024 3:57pmNovember 2024 4:38pmDischarged to home care or self care (routine discharge)CROW Malikeparted Physician/Provider Office Visit-[facility] Family Medicine [place] 2024 2:50pmNovember 2024 3:56pmDischarged to home care or self care (routine discharge)Ann Malik-patient / [facility] GastroNovember 2024 9:23amIJOANA Greeneparted Physician/Provider Office Visit-[facility] Family Medicine [place]Decemb2024 3:40pmDecember 2024 4:17pmDischarged to home care or self care (routine discharge)JAVIER Malik Recent Diagnosis Onset Date Admit Date Class 1 obesity due to exces s [...] 05 2:21pm Dyspepsia Unknown May 05 2:21pm History of GI bleed Unknown April 2:21pm CARA (iron deficiency anemia) Unknown Apr 2:21pm H/O gastric bypass Unknown May 05, 2025 2:21pm Environmental and seasonal allergies Unknown May 26, 2025 3:57pm Overweight Unknown May 26 3:57pm Bronchitis Unknown May 26 3:57pm JESSIKA (generalized anxiety disorder) Unknown June 05, 2025 2:50pm Severe episode of recurrent major depressive disorder, with psychotic features Unknown June 05, 2025 2:50pm Class 1 obesity due to exces s calories without serious comorbidity in adult Unknown July 03, 2025 3:40p m CARA (iron deficiency anemia) Unknown Jun 3:40pm Nicotine dependence Unknown June 3:40pm Pre-operative clearance Unknown July 03, 2025 3:40pm Assessments Diagnosis Onset Date Resolution Status Admit Date Class 1 obesity due to excess calories w ithout serious comorbidity in adult acuteOctober 2024 4:13pmFibromyalgiaacuteOctober 2024 4:13pmGERD without esophagitisacuteApril 30, 2025 4:13pmIDA (iron deficiency anemia) acuteOctober 2024 4:13pmNicotine dependenceacuteOctober 2024 4:13pm Overactive bladder due to prolapse of female genital organacuteOctober 2024 4:13pmSevere episode of recurrent major depressive disorder, with psychotic featuresacuteOctge[facility] 2024 4:13pmBloatingacuteOctge[facility] hospital 2024 2:21pm DyspepsiaacuteOctober 2024 2:21pmHistory of GI bleedacuteOctober 2024 2:21pmIDA (iron deficiency anemia)acuteOctober 2024 2:21pmH/O gastric bypassinactiveOctober 2024 2:21pmEnvironmental and seasonal allergies acuteNov2024 3:57pmOverweightacuteNov2024 3:57pmBronchitis resolvedNov2024 3:57pmGAD (generalized anxiety disorder)acuteNov2024 2:50pmSevere episode of recurrent major depressive disorder, with psychotic featuresacuteNov2024 2:50pmClass 1 obesity due to excess calories without serious comorbidity in adultacuteDecedignity health [facility] 2024 3:40pmIDA (iron deficiency anemia)acuteWell[facility] 20[facility] 3:40pmNicotine dependenceacute July 03, 2025 3:40pmPre-operative clearanceacuteDebanner 2024 3:40pm Plan of Treatment Author Pascale Arana [facility]ored[facility] 2024 5:06pmcurrent meds: duloxetine, flexeril, gabapentin Recommendations: [...] of the risks of continued smoking: stroke, AK, all forms of cancer, lung disease, and [...] meds due to freq urination has seen [facility] in the last month, they are ordering [...] ensure stabilization of her condition Author Clinton [facility] HospitalAuthoredOctober 2024 2:09pm- Order EGD for further evaluation [...] Follow-up in office post EGD. Author Pascale [facility] 2024 4:43pmoral meds and nasal spray doxy, albuterol , tessalon fluids, rest fu if not better would like a work note Author Pascale [facility] 2024 7:30amis scheduled to have total hyst/BSO, uteroscaral ligament suspension, anterior repair and cysto 07/22/25 any pre op EKG or labs completed: Discussed with patient their BMI (actual vs recommended). We have discussed lifestyle modifications: attempts to perform phsyical activity as chronic conditions allow, monitor dietary intake: increasing protein/fruits/veggies and lowering carb intake (unless contraindicated). Limit sodas, juices, sugary drinks, as well as alcohol consumption. 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 Options for quitting: cold turkey, hypnosis, acupuncture, nicotine replacement meds (gum, lozenges, and patches), as well as oral meds: buproprion or varenicline . At this time pt is encouraged to evaluate their goals for wanting to quit smoking, and reach out to provider when ready to start this process Author Pascale [facility] 2024 10:27pmcurrent meds: ludivina junior [facility] psych pt to file for disability possibly cont with N[facility] Future Tests Future scheduled test information is unavailable Pending Tests Test Name Ordered Date Scheduled Date Comprehensive Metabolic Panel April 30, 2025 6:14am Future Visits Future appointment information is unavailable Future Procedures Procedure Name Ordered Date Scheduled Date Discharge Order June 06, 2025 11:23am Betsy ornelas 2024 11:23am Dipstick and Microscopic April 30, 2025 6:14a m Vitamin D46Widtgzr2024 6:14amFerritinOctober 2024 6:14amBasic Metabolic PanelDecember 2024 7:28amComplete Blood Count Auto DiffDecember 2024 7:27am Future Medications Future medication information is unavailable Patient Instructions Instruction Admit Date Know your Meds June 06, 2025 9:23am
--- OUTSIDE RECORDS SUMMARY | 2025-07-05 11:02 | XMS_ITS | Clinical Summary ---
Author Organization [employer] [facility] Address [id number] [place] [address] Care Team Providers Care Bag Machine Operator Name Role Phone DerrickPascale argueta Bang FOOD PHOTOGRAPHER-FILTRATION PLANT OPERATOR Primary Care Provider Allergies Active AllergyReactionsCriticalityNoted RiskQmkgcdwyLiovupyrrckXeyyh23/19/2023 Medications MedicationSigDispense QuantityRefillsLast FilledStart DateEnd DateStatus meloxicam [...] second degree uterine prolapse 05/30/2025 Encounters DateTypeDepartmentCare ZorhPyrfdmifydt70/05/2025 2:30 PM ESTProcedure visit [facility] [address] [place] [address] Tania Asif MD Urge urinary incontinence (Primary Dx); Cystocele with second degree uterine prolapse; History of reconstructive repair of rwwoydesf61/05/5292Yyasfv28/10/2025Telephone [facility] Urogynecology [address] [place] [address] Areli Gudino CMA from Last 3 Months Family History Medical HistoryRelationNameCommentsDiabetesFatherHeart attackFatherHypertension FatherStrokeFatherBreast cancerMaternal AuntDiabetesMaternal GrandfatherBreast cancerMaternal GrandmotherDiabetesMotherThyroid cancerPaternal GrandmotherColon cancerNeg HxOvarian cancerNeg HxUterine cancerNeg HxRelationNameStatusComments Hosjtyazg6OdcjtMkcyxbKgsaiqupFpedfjty AuntAliveMaternal GrandfatherDeceased Maternal GrandmotherDeceasedMotherDeceasedPaternal GrandfatherDeceasedPaternal GqvmokkeirvUiqiipghJycbutn4AiuzoYiaYkxho Social History Tobacco UseTypesPacks/DayYears UsedDateSmoking Tobacco: Every DjlSczmecrnjo924 Smokeless Tobacco: Never Tobacco Cessation:Ready to Q uit: Not Asked; Counseling Given: Not Answered Alcohol UseStandard Drinks/WeekCommentsYes0 (1 standard drink = 0.6 oz pure alcohol)ChildcareAnswerDate JpyfyctaAwnjdoeujFwcjitb70/12/2019EmploymentAnswer Date KjliwzdlWlsvlnsfigZyywqoa57/12/2019Hunger ScreeningAnswerDate Recorded Within the past 12 months we worried whether our food would run out before we got money to buy more.Never True05/28/2025Within the past 12 months the food we bought just didn't last and we didn't have money to get more.Never True 05/28/2025Purpose - LifeAnswerDate RecordedPurpose and direction in lifeUnknown 1CommentsNoSex and Gender InformationValueDate RecordedSex Assigned at BirthNot on fileLegal EneDnufab53/06/2015 12:10 PM EDTGender IdentityNot on fileSexual OrientationNot on file Last Filed Vital Signs Vital SignReadingTime TakenCommentsBlood Cznixqcr306/6711 2:35 PM EST Usoym514305/28/2025 2:35 PM ESTTemperature--Respiratory Rate--Oxygen Saturation-- Inhaled Oxygen Concentration--Olqrnw76.7 kg (173 lb 9.6 oz)05/28/2025 2:35 PM MZISzzrdy400.4 cm (5' 5.5 )05/28/2025 2:35 PM ESTBody Mass Index28.45107/28/2024 2:35 PM EST Plan of Treatment DateTypeDepartmentCare Team (Latest Contact Info)Pobhnxljdqi96/16/2025 2:45 PM ESTProcedure visit [facility] On [address] [address] 07/22/2025 2:30 PM ESTHospital Encounter [facility] [address] [place] [address] Tania Asif MD [address] [facility] [address] [place] [address] 07/22/2025 2:30 PM EST - 07/22/2025 5:15 PM [facility]Sur[facility] [address] [place] [address] Tania Asif MD [address] [facility] [address] [place] [address] DAVINCI HYSTERECTOMY SALPINGO OOPHORECTOMY [[id number] (CPT??)]09/03/2025 3:15 PM EST Office Visit [facility] - Urogyn [address] [place] [address] Tania Asif MD [address] [facility] [address] [place] [address] NamePriorityAssociated DiagnosesDate/TimeDAVINCI HYSTERECTOMY SALPINGO OOPHORECTOMY Cystocele with second degree uterine prolapse 07/22/2025 2:30 PM ESTDAVINCI SUSPENSION LIGAMENT UTEROSACRAL Cystocele with second degree uterine prolapse 07/22/2025 2:30 PM ESTREPAIR ANTERIOR CYSTOCELE VAGINA Cystocele with second degree uterine prolapse 07/22/2025 2:30 PM ESTCYSTOSCOPY Cystocele with second degree uterine prolapse 07/22/2025 2:30 PM ESTHealth MaintenanceDue DateLast DoneCommentsTobacco Nksesyhgir1971Depression Nnjcegwjq17/13/1983Adult BMI Follow Up Plan 1989DTaP,Tdap and Td Vaccines (1 - Tdap)1990Pap Smear09/ Zoster (Shingles) Vaccine (1 of 2)2021Influenza Qgpmnbx5603/24/2025dult BMI Otyahkrgh80Tobacco Qoyhvfokh51 Goals GoalPatient Goal TypeAssociated ProblemsRecent ProgressPatient-Stated?Author Autogenerated Goal Care PlanAutogenerated ProblemNoElizabeth [employer] Not on file Procedures Procedure NamePriorityDate/TimeAssociated DiagnosisCommentsPOCT URINALYSIS DIPSTICK MQSVNuuuqtl07/05/2025 3:04 PM EST Cystocele with second degree uterine prolapse History of reconstructive repair of rectocele Urge urinary incontinence MEASURE POST VOID NGOIJLNAEerpaey36/05/2025 Cystocele with second degree uterine prolapse History of reconstructive repair of rectocele Urge urinary incontinence from Last 3 Months Results * POCT urinalysis dipstick only (05/28/2025 3:04 PM EST)ComponentValueRef Range Test MethodAnalysis TimePerformed AtPathologist SignatureExternal Poct Urine ColorYELLOWMANUALLY TRANSCRIBED RESULTSExternal Poct Urine AppearanceCLEAR MANUALLY TRANSCRIBED RESULTSExternal Poct Urine GlucoseNegativeMANUALLY TRANSCRIBED RESULTSExternal Poct Urine KetonesNegativeMANUALLY TRANSCRIBED RESULTSExternal Poct Urine BloodNegativeMANUALLY TRANSCRIBED RESULTSExternal Poct Urine Ga5MGBOUZJU TRANSCRIBED RESULTSExternal Poct Urine ProteinNegative MANUALLY TRANSCRIBED RESULTSExternal Poct Urine NitriteNegativeMANUALLY TRANSCRIBED RESULTSExternal Poct Urine Leukocyte EsteraseNegativeMANUALLY TRANSCRIBED RESULTSSpecimen (Source)Anatomical Location / LateralityCollection Method / VolumeCollection TimeReceived MgrbKcohu47/05/2025 3:04 PM EST Narrative Authorizing ProviderResult TypeResult StatusNadine C Laya MDPOINT OF CARE TEST ORDERABLESFinal ResultPerforming OrganizationAddressCity/State/ZIP CodePhone Number MANUALLY TRANSCRIBED RESULTS * Measure post void residual (05/28/2025)ComponentValueRef RangeTest Method Analysis TimePerformed AtPathologist KttbhvkhkQzmykf15roUVNKLZVB TRANSCRIBED RESULTSSpecimen (Source)Anatomical Location / LateralityCollection Method / VolumeCollection TimeReceived TimeUrine Narrative Authorizing ProviderResult TypeResult StatusTania Asif MDNURSING ASSESSMENTSFinal ResultPerforming OrganizationAddressCity/State/ZIP CodePhone Number MANUALLY TRANSCRIBED RESULTS from Last 3 Months Additional Health Concerns Active ProblemsNoted DateDiagnosed DateAutogenerated Pxolylb1205/30/2025 Insurance Care Teams Team MemberRelationshipSpecialtyStart DateEnd Date Pascale Arana, FOOD PHOTOGRAPHER-FILTRATION PLANT OPERATOR [address] [place] [address] PCP - GeneralNurse Practitioner04/02/25
--- OUTSIDE RECORDS SUMMARY | 2025-07-05 11:02 | XMS_ITS | Encounter Summary ---
Author Organization [facility] Address [address] [place] [address] Care Team Providers Care Hand Tube Bender Name Role Phone Molina De Anda MD Primary Care Provider [phone] Valerie Groves ANCILLARY SERVICES MANAGER THERAPY Unavailable [phone] Karime Dias PMHNP- Unavailable + [phone] Encounter Details DateTypeDepartmentCare Team (Latest Contact Info)Chjxwqoryup07/03/2025Bamboo flowsheet [facility] [address] [place] [address] Macarena Chang, CHEMIST STEROIDSFREEMAN ORTHOPAEDICS & SPORTS MEDIC[facility] [address] [facility] [address] [place] [address] Social History Tobacco UseTypesPacks/DayYears UsedDateSmoking Tobacco: Every KxvWheguqibds223.9 Started: 1985Passive Smoke Exposure: PastSmokeless Tobacco: Never [...] week08/07/2023How often do you attend christianity or yarsani services?Never08/07/2023o you belong to any clubs or organizations such as christianity groups, unions, fraternal or athletic groups, or school groups?No08/07/2023How often do you attend meetings of the clubs or organizations you belong to?Patient /15/2024re you , , , , never , or living with a partner?Jnrgffd2408/07/2023 AUDIT-CAnswerDate RecordedQ1: How often do you have [...] Health Questionnaire-2 Score5 01/22/2025Fin[facility] [place] of Occupational Health - Occupational Stress QuestionnaireAnswerDate RecordedDo you feel stress - tense, restless, nervous, or anxious, or unable to sleep at night because yourmind is troubled all the time - these days?To some adfbqq6508/07/2023Exercise Vital SignAnswerDate Recorded On average, how many [...] InformationValueDate RecordedSex Assigned at BirthNot on fileLegal LwxZrrkwy78/15/2023 7:47 PM EDTGender IdentityNot on fileSexual OrientationNot on filedocumented as of this encounter Plan of Treatment DateTypeDepartmentCare Team (Latest Contact Info)Alhaabhfybx98/08/2026 10:00 AM ESTOffice Visit [facility] [address] [place] [address] Macarena Chang APRN-CREATIVE SERVICES WRITER [address] [place] [address] documented as of this encounter Goals GoalPatient [...] Groves NP Nurse PractitionerFamily Medicine02/21/24 Karime Dias, [facility] [address] [address] Nurse PractitionerThe Children'S Hospital Foundation01/22/25documented as of this encounter
--- OUTSIDE RECORDS SUMMARY | 2025-07-05 11:02 | XMS_ITS | Patient Health Record ---
Author Organization [facility] [place] Address [address] [place] [address] Care Team Providers Care Tugboat Mate Name Role Phone None, Unknown or Primary Care Provider Unavailab Tawana [facility] [phone] Allergies Allergen (clinical drug ingredient) Drug/Non Drug Allergy documented on EMR Reaction Allergy Type Onset Date Status PenicillinrashDrug AllergyActive Results Component Value Reference Range Notes CT FOOT LT WO CON (Not yet r eviewed by provider) Interpretation: Performing Lab: Notes/Report: Source Facility: [place] [address] CT Scan Report Signed Patient: TALIA RUTHERFORD MR#: [id number] : 1970 Acct:[id number] Age/Sex: 54 / F ADM Date: 09/09/24 Loc: CT Attending Dr: Tawana Hoff D.P.M. Ordering Physician: Tawana Hoff D.P.M. Date of Service: 09/09/24 Procedure(s): CT foot LT wo con Accession Number(s): [id number] cc: ANGEL LUIS LAMAR [place] [address] Patient Name: TALIA RUTHERFORD MRN: [id number] date: 1970 Sex: F Assigned Patient Location: CT Current Patient Location: CT Accession/Order Number: [id number] Exam Date: 09/09/2024 15:56 Report Date: 09/09/2024 [...] M.D. Signed By: 09/09/241741 DD/ 38 TD/TT: Ict Business Analyst: XR foot LT min 3V (Not yet r eviewed by provider) Interpretation: Performing Lab: Notes/Report: Source Facility: [place] [address] XRay Report Signed Patient: TALIA RUTHERFORD MR#: [id number] : 1970 Acct:[id number] Age/Sex: 54 / F ADM Date: 09/04/24 Loc: EC Attending Dr: Tawana Hoff D.P.M. Ordering Physician: Tawana Hoff D.P.M. Date of Service: 09/04/24 Procedure(s): XR foot LT min 3V Accession Number(s): [id number] cc: NASH LAMAR Peter D.P.M. [facility] [place] [address] Patient Name: TALIA RUTHERFORD MRN: [id number] date: 1970 Sex: F Assigned Patient Location: Current Patient Location: Accession/Order Number: [id number] Exam Date: 09/04/2024 15:53 Report Date: 09/05/2024 [...] Signed By: 09/05/24 1019 DD/ 1016 TD/TT: Ict Business Analyst: Reason For Referral No Information Medications Medication [...] o steoarthritis of the ankle and/or foot (460305260) Primary osteoarthritis, left ankle and foot (M19.072) ActiveconfirmedProblemGastroesophageal reflux disease (489025054)GERD (gastroesophageal reflux disease) (K21.9)ActiveconfirmedProblemPain in left foot (723508891355714)Left foot pain (M79.672)ActiveconfirmedProblemAnxiety depression (760494424)Anxiety with depression (F41.8)ActiveconfirmedProblemUlcer of big toe (disorder) (901971402)Chronic ulcer of great toe of left foot with fat layer exposed (L97.522)Activeconfirmed Vital Signs Heart Rate 85 /min 09/18/2024 Respiratory Rate16 /min09/18/20244429Fibbqhzy68 %09/18/2024 Encounters Encounter Location Date Provider Diagnosis [facility] ([facility]) [address] [place] [address] [place] [address] 09/04/[address] [facility] ([facility])[address] [place] [address] [place] [address]/12/2025Peter HighlanderPain due to internal orthopedic prosthetic devices, implants and grafts, initial encounter T84.84XA; Primary osteoarthritis, left ankle and foot M19.072 and Left foot pain M79.672[facility] ([facility])[address] [place] [address] [place] [address]/26/2025Peter Highlander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.0 ; [...] Coverage End Date RANDI COURTNEY [address] [place] [address] [id number] Talia Rutherford Self - patient is the insured Medical (General) History Medical History History ICD Code GERD (gastroesophageal reflux disease) K 21.9 Anxiety F41.9 Arthritis M19.90 Nicotine dependence F17.200 Bipolar depression F31.9 Overactive bladder N32.81 Peripheral arterial disease I73.9 Surgical History Surgery Date(Month/Year) posterior colporrhaphy repair, enterocel e repair 02/15/2021 gastric bypass 08/2019 tubal ligation cholecystectomy
--- OUTSIDE RECORDS SUMMARY | 2025-07-05 11:02 | XMS_ITS | Encounter Summary ---
Author Organization [facility] Address [address] [place] [address] Care Team Providers Care Academic Department Chair Name Role Phone Molina De Anda MD Primary Care Provider [phone] Valerie Groves TIPPLE SUPERVISOR Unavailable [phone] Karime Dias PMHNP- Unavailable + [phone] Encounter Details DateTypeDepartmentCare Team (Latest Contact Info)Ajclctvktdl22/03/2025Travel Social History Tobacco UseTypesPacks/DayYears UsedDateSmoking Tobacco: Every HpfWqdmsyhrnk572.9 Started: 1985Passive Smoke Exposure: PastSmokeless Tobacco: Never [...] times a week08/07/2023How often do you attend mormonism or hindu services?Never08/07/2023o you belong to any clubs or organizations such as mormonism groups, unions, fraternal or athletic groups, or school groups?No08/07/2023How often do you attend meetings of the clubs or organizations you belong to?Patient hctbkava41/15/2024re you , , , , never , or living with a partner?Lwgnfqb7408/07/2023 AUDIT-CAnswerDate RecordedQ1: How often do you have [...] at all 08/07/2023HQ-2AnswerDate RecordedPatient Health Questionnaire-2 Score5 01/22/2025Finprimary [facility] [place] of Occupational Health - Occupational Stress QuestionnaireAnswerDate RecordedDo you feel stress - tense, restless, nervous, or anxious, or unable to sleep at night because yourmind is troubled all the time - these days?To some kpnvjh7308/07/2023Exercise Vital SignAnswerDate Recorded On average, how many [...] InformationValueDate RecordedSex Assigned at BirthNot on fileLegal TysHipwdh55/15/2023 7:47 PM EDTGender IdentityNot on fileSexual OrientationNot on filedocumented as of this encounter Plan of Treatment DateTypeDepartmentCare Team (Latest Contact Info)Vlfxnijdckt09/08/2026 10:00 AM ESTOffice Visit [facility] [address] [place] [address] Macarena Chang APRN-CALL CENTER ASSOCIATE [address] [place] [address] documented as of this encounter Goals GoalPatient [...] - GeneralFamily Medicine02/21/24 Valerie Groves NP Nurse PractitionerFaanna jaques hospital Medicine02/21/24 Karime Dias PMHNP- [address] [address] Nurse PractitionerWellspan Good [facility]aritan [facility]01/22/25documented as of this encounter
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
--- OUTSIDE RECORDS SUMMARY | 2025-07-05 11:02 | XMS_ITS | Clinical Summary ---
Author Organization [facility] Address [address] [place] [address] Care Team Providers Care Cyber Analyst Name Role Phone Shaikh NITHIN Main Primary Care Provider [phone] Allergies Active AllergyReactionsCriticalityNoted BlhaLlivoauwSvdicjbghjx22/19/2023 Medications MedicationSigDispense QuantityRefillsLast FilledStart DateEnd DateStatus citalopram [...] InformationValueDate RecordedSex Assigned at BirthNot on fileLegal ZznJbetpz56/29/2022 10:25 PM EDT Gender IdentityNot on fileSexual OrientationNot on file Last Filed Vital Signs Vital SignReadingTime TakenCommentsBlood Ncraztjn45/6109 3:16 PM EDT Sxvtm8728 3:16 PM EDTTemperature--Respiratory Rate--Oxygen Cfovnskxkp37% 04/07/2023 3:16 PM EDTInhaled Oxygen Concentration--Fftxbj001 kg (224 lb) 04/07/2023 3:16 PM PFMIzmdoe508.1 cm (5' 5 )04/07/2023 3:16 PM EDTBody Mass Index37.28004/07/2023 3:16 PM EDT Plan of Treatment Health MaintenanceDue DateLast DoneCommentsCT Rcmuiuniwspw1971Colonoscopy 1971Colorectal Cancer Kjfvzthjq1971FIT-DNA1971FIT1971 FOBT1970 3525Tnwtfdlmavzwi1971Depression Twvbvjflq02/13/1983Hepatitis B Vaccines (1 of 3 - 19+ 3-dose series)1990Pneumococcal Vaccine: Pediatrics (0 to 5 Years) and At-Risk Patients (6 to 64 Years) (1 of 2 - PCV)1990Pap Smear1992Adult Pquefrs0204/05/1993Cervical Cancer Gbwbowuzo76/13/2001 HPV/Iztfwm6304/05/20015506Jhlxezqac97/13/2011Zoster Vaccines (1 of 2)1COVID- 19 Vaccine (1 [...]
--- OUTSIDE RECORDS SUMMARY | 2025-07-05 11:02 | XMS_ITS | Encounter Summary ---
Author Organization [facility] Address [address] [place] [address] Care Team Providers Care Him Assistant Name Role Phone Molina De Anda MD Primary Care Provider [phone] Valerie Groves JOURNEYMAN CARPENTER Unavailable [phone] Karime Dias PMHNP- Unavailable + [phone] Reason for Visit * ReasonCommentsMed Refill Encounter Details DateTypeDepartmentCare Team (Latest Contact Info)Qsngfrvvhdf32/01/2025Refill [facility] [address] [facility] [address] [place] [address] Macarena Chang, GEOLOGICAL MANAGER-[facility] [address] [facility] [address] [place] [address] Severe episode of recurrent major depressive disorder, without psychotic features (HCC) Social History Tobacco UseTypesPacks/DayYears UsedDateSmoking Tobacco: Every RsyVpsmrjbdhi100.9 Started: 1985Passive Smoke Exposure: PastSmokeless Tobacco: Never [...] times a week08/07/2023How often do you attend orthodoxy or synagogue services?Never08/07/2023o you belong to any clubs or organizations such as orthodoxy groups, unions, fraFippex or athletic groups, or school groups?No08/07/2023How often do you attend meetings of the clubs or organizations you belong to?Patient /15/2024re you , , , , never , or living with a partner?Yafardx8308/07/2023 AUDIT-CAnswerDate RecordedQ1: How often do you have [...] at all 08/07/2023HQ-2AnswerDate RecordedPatient Health Questionnaire-2 Score5 01/22/2025Finmo[facility] [place] of Occupational Health - Occupational Stress QuestionnaireAnswerDate RecordedDo you feel stress - tense, restless, nervous, or anxious, or unable to sleep at night because yourmind is troubled all the time - these days?To some twaglw8008/07/2023Exercise Vital SignAnswerDate Recorded On average, how many [...] InformationValueDate RecordedSex Assigned at BirthNot on fileLegal CevGbvtoz80/15/2023 7:47 PM EDTGender IdentityNot on fileSexual OrientationNot on filedocumented as of this encounter Plan of Treatment DateTypeDepartmentCare Team (Latest Contact Info)Ipbudlhuljm77/08/2026 10:00 AM ESTOffice Visit [facility] [address] [facility] [address] [place] [address] Macarena Chang APRN-HARDWOOD FLOOR SANDER [address] [facility] [address] [place] [address] documented as of this encounter Goals GoalPatient [...] Groves NP Nurse PractitionerFamily Medicine02/21/24 Karime Dias PMHNPRANDOLPH MED[facility] [address] [address] Nurse PractitionerBelawrence f. quigley [facility] Health01/22/25documented as of this encounter
--- OUTSIDE RECORDS SUMMARY | 2025-07-05 11:02 | XMS_ITS | Patient Health Record ---
Author Organization [facility] Address [address] [address], [facility] [place] [address] Care Team Providers Care Forming Process Line Worker Name Role Phone Sudoron Mathew Unavailable [phone] Allergies Allergen (clinical drug ingredient) Drug/Non Drug [...] at bedtime as needed Orally Once a kczUnqavfDcotvnbu03/22/2025ActiveVitamin B1203/14/2025 ActiveVraylar 3 MG CapsuleOral; Duration: 30 DaysActiveAllegraActiveDetrol [place] 9994VdrmwtSioyuzlk53/22/2025Active Social History Section Notes: Patient is a current smoker. No alcohol use. Exercise habits: Active Lifestyle Living situation: Lives at home in [place], [place] Encounters Encounter Location Date Provider Diagnosis 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 [address] [address], [facility] [place] [address] 04/11/2025 Mathew Hoff Assessments Encounter Date Diagnosis [...] Start Date Coverage End Date [employer] [address] [address] [place] [address] [id number] Kenyon Mercado - patient is the insured Medical (General) History Medical History History ICD Code GERD
--- OUTSIDE RECORDS SUMMARY | 2025-07-05 11:03 | XMS_ITS | Clinical Summary ---
Author Organization [facility] Address [address] [place] [address] Care Team Providers Care Melt Down Furnace Operator Name Role Phone Molina De Anda MD Primary Care Provider [phone] Valerie Groves SUBSTANCE ABUSE CLINICIAN Unavailable [phone] Karime Dias PMHNP- Unavailable [phone] Allergies Active AllergyReactionsCriticalityNoted VkekYowbhenpXyaxhqqcnejDfxrc22/12/2023 Medications MedicationSigDispense QuantityRefillsLast FilledStart DateEnd DateStatus fexofenadine [...] the vagina 2 (two) times a week5Active DULoxetine (Cymbalta) [address] capsule Indications:FibromyalgiaTake 1 capsule (60 mg) by mouth Daily in the Morning 30 capsule 5Active [facility] D3 125 MCG (5000 UT) capsule [...] meals. 5Active lamoTRIgine (LaMICtal) 25 MG tablet Indications:Bipolar disorder with severe depression (HCC)2 tablets daily 60 tablet 5Active Cariprazine HCl (Vraylar) 4.5 MG capsule Indications:Severe episode of recurrent major depressive disorder, without psychotic features (HCC),JESSIKA (generalized anxiety disorder),PTSD (post-traumatic stress disorder)Take 4.5 mg by mouth Daily 30 capsule /6Active Cariprazine HCl (Vraylar) 4.5 MG capsule Indications:JESSIKA (generalized anxiety disorder),Severe episode of recurrent major depressive disorder, without psychotic features (HCC),PTSD (post-traumatic stress disorder)Take 4.5 mg by mouth Daily After taking 3 mg dose daily for 14 days, begin taking 4.5 mg daily. 30 capsule /Discontinued(Reorder) DULoxetine (Cymbalta) [address] capsule Indications:FibromyalgiaTake 1 capsule (30 mg) by mouth at bedtime 30 capsule Discontinued(Dose adjustment) benzonatate (Tessalon) 200 MG capsule Take 200 mg by mouth 3 (three) times a day as needed for cough05/26/2025 06/25/2025Discontinued(Therapy completed) lamoTRIgine (LaMICtal) 25 MG tablet Indications:Severe episode of recurrent major depressive disorder, without psychotic features (HCC)Take 1 tablet (25 mg) by mouth Daily for 14 days, THEN 2 tablets (50 mg) Daily for 14 days. 42 tablet Discontinued Cariprazine HCl (Vraylar) 4.5 MG capsule Indications:JESSIKA (generalized anxiety disorder),Severe episode of recurrent major depressive disorder, without psychotic features (HCC),PTSD (post-traumatic stress disorder)Take 4.5 mg by mouth Daily 30 capsule Discontinued(Reorder) Active Problems ProblemNoted DateDiagnosed DateGAD (generalized anxiety disorder)03/06/2025 Spinal stenosis, lumbosacral ufkxvi0702/05/2025Spinal stenosis, cervical region 02/05/2025Sleep apnea01/22/2025Severe episode of recurrent major depressive disorder, without psychotic disnczmw15/02/2025 Assessment & Plan (02/25/2025 12:45 PM EDT): Was referred to psych, they are currently managing meds Is off on FMLA for this PTSD (post-traumatic stress disorder)01/22/2025 Assessment & Plan (02/25/2025 7:23 AM EDT): Dx as per psych Abnormal Papanicolaou smear of cervix with positive human papilloma virus (HPV) test11/27/2024 Overview (11/27/2024): Pap smear 11/15 Hot flashes due to zthydlxil90/30/2025 Assessment & Plan (11/20/2024 4:37 PM EDT): Discussed insurance concern over dose of celexa, she takes for hot flashes she is willing to trial a decrease in dose to 20mg and will cut her current pill in half BMI 32.0-32.9,adult10/23/2024Overactive bladder due to prolapse of female genital organ10/02/2024Headache, menstrual migraine, with status migrainosus 08/12/2024Malaise and sliofqf7208/12/2024Detrusor muscle dkyrzkdzzd84/20/2025lass 1 obesity due to excess calories without [...] options for weight loss. Environmental and seasonal yffvxnzrx97/20/2025 Assessment & Plan (08/12/2024 4:42 PM EST): Cont layla, add flonase History of GI bleed03/06/2024LUQ abdominal pain03/06/20244127Vkmccsmbfhke72/07/2024 Assessment & Plan (04/10/2024 6:44 PM EDT): [...] AFTER BM. Referral sent to GI Nicotine stlxarceqx61/22/2024 Assessment & Plan (02/25/2025 7:23 AM EDT): [...] ready to start this process Antibiotic-induced yeast vlonkluqa28/22/2024 Assessment & Plan (08/15/2023 12:15 AM EST): Will order Fluconazola in case she develops abx induced yeast infection History of gastric mkpihu9808/04/2023 Assessment & Plan (11/13/2023 5:18 PM EDT): On B12 injection and required IV iron. 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 Hvwqzgehcrsy69/12/2023 Assessment & Plan (01/06/2025 6:10 PM EDT): [...] Elevate HOB if possible Current med: lansoprazole Zwoslmsd07/12/2023 Assessment & Plan (02/25/2025 12:44 PM EDT): [...] mg. Follow up in 6 weeks. B12 wwqktiizkx62/12/2023 Assessment & Plan (10/23/2024 6:11 PM EDT): [...] prior gastric bypass. Plantar fasciitis of right foot06/30/20233283Nrmvrtoag70/08/2023Uterine prolapse 06/30/2023 Resolved Problems ProblemNoted DateDiagnosed DateResolved DateUTI (urinary tract infection), kmolautyxmozi02/24/202504/Well woman exam with routine gynecological exam / Assessment & Plan (11/20/2024 4:32 PM EDT): Thin prep: fu as per pap indications Monthly BSE Weight bearing exercise as well Encounter for screening mammogram for malignant neoplasm of nbskiz5810/02/2024 01/22/2025MI 34.0-34.9,adult/08/2024Female genital symptoms /Problem related to unspecified psychosocial circumstances /7352Lamakfc18/20/202503/06/20253558Fyvuyc75 Assessment & Plan (01/06/2025 6:09 PM EDT): See bipolar entry Lonqiokxkpqw33/20/202504/ute non-recurrent maxillary sinusitis /06/2025 Assessment & Plan (08/12/2024 4:41 PM EST): Zithromax , finish atb Fluids, rest Fu if not better, add steroid nasal spray Cutaneous abscess of abdominal wall/ Overview (08/12/2024): [employer] [id number] EXP: 10/22/2026 LOT # [id number] Assessment & Plan (08/12/2024 5:50 PM EST): [...] daily if no contraindications Screening for diabetes dnpufegv56/06/2025 Assessment & Plan (01/22/2024 5:28 PM EDT): Screen for T2 DM Encounter for screening mammogram for breast hmptfu47/06/2025 Assessment & Plan (01/22/2024 5:29 PM EDT): Ordered mammogram. Seizure-like ekkonvez29/08/2024 Assessment & Plan (01/22/2024 5:28 PM EDT): New, 4 episodes in past 10 days. No aggravating factors Sudden onset feeling of restlessness, diaphoresis along with UE tremors, associated confusion that lasts after that event subsides/concludes. Stop Wellbutrin as associated with increased risk of seizure. Refer to Neurology. Fluid level behind tympanic membrane of both ears/06/2025 Assessment & Plan (01/22/2024 5:29 PM EDT): Recent URTI , residual fluid behind TM b/l Non-recurrent acute suppurative otitis media of both ears without spontaneous rupture of tympanic nfnceywci93Overactive myrupet3311/13/2023 01/06/2025utaneous abscess of groin Assessment & Plan (08/15/2023 12:20 AM EST): Small pea sized skin abscess in pubic region - on cefdinir for URTI. Should cover unless MRSA Patient asked to follow up if no improvement or worsening pain, swelling or fever. URTI (acute upper respiratory infection)/06/2025 Assessment & Plan (08/15/2023 12:15 AM EST): Cough, rhinorrhea, fatigue, malaise x 2-3 weeks. No fever. No chills. No SOB but ear feels full. Exam showed TM is opaque b/l, thick, cloudy colored fluid, hyperemic oropharyngeal mucosa. Will call in oral Cefdinir, alongwith PO prednisone and benzonatate. Bipolar disorder with severe dhcufeayac26/12/202307/08/2024 Assessment & Plan (01/06/2025 6:09 PM EDT): [...] or concerns related to new medications. Breast jbvlyeobp09/06/2025 Assessment & Plan (07/04/2023 3:48 PM EST): Ordered mammogram Menorrhagia with regular cycle/ Encounters DateTypeDepartmentCare IzfbDngaadbqeod05/03/2025 2:00 PM ESTOffice Visit [facility] [address] [facility] [address] [place] [address] Macarena Chang, LATIN DANCE INSTRUCTOR-LEAD LOADER Severe episode of recurrent major depressive disorder, without psychotic features (HCC); Bipolar disorder with severe depression (HCC); JESSIKA (generalized anxiety disorder); PTSD (post-traumatic stress disorder)06/25/2025amboo flowsheet [facility] [address] [facility] [address] [place] [address] Macarena Chang LATIN DANCE INSTRUCTOR-LEAD LOADER 06/25/20250047Gzmzov76/01/2025Refill [facility] [address] [facility] [address] [place] [address] Macarena Chang, LATIN DANCE INSTRUCTOR-LEAD LOADER Severe episode of recurrent major depressive disorder, without psychotic features (HCC)06/16/2025Refill [facility] [address] [facility] [address] [place] [address] Dina Miller LPN JESSIKA (generalized anxiety disorder); Severe episode of recurrent major depressive disorder, without psychotic features (HCC); PTSD (post-traumatic stress disorder)06/15/2025Refill [facility] [place] [facility] [address] [place] [address] Angeli-Macarena Santos, LATIN DANCE INSTRUCTOR-LEAD LOADER JESSIKA (generalized anxiety disorder); Severe episode of recurrent major depressive disorder, without psychotic features (HCC); PTSD (post-traumatic stress disorder)06/09/2025Refill [facility] [place] [facility] [address] [place] [address] Karime Dias, [facility] JESSIKA (generalized anxiety disorder); Severe episode of recurrent major depressive disorder, without psychotic features (HCC); PTSD (post-traumatic stress disorder)06/02/2025 3:00 PM ESTOffice Visit [facility] [address] [facility] [address] [place] [address] Angeli-Macarena Santos, LATIN DANCE INSTRUCTOR-LEAD LOADER Severe episode of recurrent major depressive disorder, without psychotic features (HCC)06/02/2025amboo flowsheet [facility] [address] [facility] [address] [place] [address] AngeliMacarena Lucio, LATIN DANCE INSTRUCTOR-LEAD LOADER 06/02/20252248Akwnlt05/29/2025Telephone [facility] [place] [facility] [address] [place] [address] Rohan Burns LPC 04/09/2025 4:30 PM EDTSocial Work [facility] [address] [facility] [address] [place] [address] Rohan Burns LPC JESSIKA (generalized anxiety disorder) ; Severe episode of recurrent major depressive disorder, without psychotic features (HCC); PTSD (post-traumatic stress disorder)04/09/2025amboo flowsheet [facility] [address] [facility] [address] [place] [address] Rohan Burns LPC 04/09/2025Travelfrom Last 3 Months Family History Medical HistoryRelationNameCommentsDiabetesFatherCharlesHeart diseaseFather CharlesHypertensionFatherCharlesStrokeFatherCharlesBreast cancerMaternal GrandmotherThyroid cancerMaternal GrandmotherDepressionMotherConnieDiabetes MotherConnieBreast cancerMother's SisterRelationNameStatusCommentsDaughter 1 AliveDaughter 2AliveDaughter 3AliveFatherCharlesAliveMaternal Grandmother DeceasedMotherConnieAliveMother's SisterAliveSonAlive Social History Tobacco UseTypesPacks/DayYears UsedDateSmoking Tobacco: Every JncGblqjycldc394.9 Started: 1985Passive Smoke Exposure: PastSmokeless Tobacco: Never [...] times a week08/07/2023How often do you attend taoist or temple services?Never08/07/2023o you belong to any clubs or organizations such as taoist groups, unions, fraternal or athletic groups, or school groups?No08/07/2023How often do you attend meetings of the clubs or organizations you belong to?Patient weetwhzl18/15/2024re you , , , , never , or living with a partner?Euuthnh1108/07/2023 AUDIT-CAnswerDate RecordedQ1: How often do you have [...] at all 08/07/2023HQ-2AnswerDate RecordedPatient Health Questionnaire-2 Score5 01/22/2025[facility] [place] [facility] - Occupational Stress QuestionnaireAnswerDate RecordedDo you feel stress - tense, restless, nervous, or anxious, or unable to sleep at night because yourmind is troubled all the time - these days?To some aaqzyq9308/07/2023Exercise Vital SignAnswerDate Recorded On average, how many [...] InformationValueDate RecordedSex Assigned at BirthNot on fileLegal QdfErbnxx95/15/2023 7:47 PM EDTGender IdentityNot on fileSexual OrientationNot on file Last Filed Vital Signs Vital SignReadingTime TakenCommentsBlood Ynwmjjtt520/6406/25/2025 1:50 PM EST Apygr257506/25/2025 1:50 PM FHTZuvkvsefnep96.6 ??C (97.8 ??F)02/25/2025 11:31 AM EDTRespiratory Dzsx208401/06/2025 4:32 PM EDTOxygen Agpxocmkld11%02/25/2025 11:31 AM EDTInhaled Oxygen Concentration--Xrihwh32.5 kg (184 lb)06/25/2025 1:50 PM EST Dybtcj974.1 cm (5' 5 )10/02/2024 4:51 PM EDTBody Mass Index30.62010/02/2024 4:51 PM EDT Plan of Treatment DateTypeDepartmentCare Team (Latest Contact Info)Nlcgikcmyvt47/08/2026 10:00 AM ESTOffice Visit [facility] [address] [facility] [address] [place] [address] Macarena Chang APRN-LEAD LOADER [address] [place] [address] Goals GoalPatient Goal TypeAssociated ProblemsRecent ProgressPatient-Stated?Author Help patient manage antidepressant medication Care PlanPatient on antidepressant monitoring Shaikh Cornell MD Additional Health Concerns Active ProblemsNoted DateDiagnosed DatePatient on antidepressant monitoring plan 08/03/2023 Insurance Care Teams Team MemberRelationshipSpecialtyStart DateEnd Date Molina De Anda MD PCP - GeneralFamily Medicine02/21/24 Valerie Groves NP Nurse PractitionerFamily Medicine02/21/24 Karime Dias [facility] [address] [facility] [address] [place] [address] Nurse PractitionerSt[facility]01/22/25
[2025-07-05 11:23] LABS: Hematocrit 40.8 % (36.0-48.0); Hemoglobin 13.8 g/dL (12.0-16.0); Immature Granulocytes Abs Auto 0.01 10^3/uL (0.00-0.03); Immature Granulocytes Pct Auto 0.2 % (0.0-0.5); Lymphocytes Absolute Auto 2.4 10^3/uL (1.2-3.8); Mean Corpuscular HGB Conc 33.8 g/dL (29.9-35.2); Mean Corpuscular Hemoglobin 33.2 pg (26.7-34.0); Mean Corpuscular Volume 98.1 fL (81.0-99.0); Platelet Count 251 10^3/uL (150-450); Red Blood Count 4.16 10^6/uL (4.20-5.40); White Blood Count 6.0 10^3/uL (4.0-11.0)
[2025-07-05 11:35] LABS: Anion Gap 5.8; Blood Urea Nitrogen 10.0 mg/dL (7.0-18.0); Calcium 9.0 mg/dL (8.5-10.1); Carbon Dioxide 30.2 mmol/L (21.0-32.0); Chloride 105 mmol/L (98-107); Estimated GFR (African America >60 (>=60 mL/min/1.73m^2); Estimated GFR (Non-African Ame >60 (>=60 mL/min/1.73m^2); Glucose 106 mg/dL (74-106); Potassium 4.0 mmol/L (3.5-5.1); Sodium 137 mmol/L (136-145)
== END 2025-07-05 10:58 | disposition home or self-care (01) ==
LOC: LAB 10:59
PROVIDERS: PCP Nurse Practitioner; Visit Provider Nurse Practitioner
DX: Z01.818 Encounter for other preprocedural examination (principal); D50.9 Iron deficiency anemia, unspecified
CPT/HCPCS: 36415; 80048; 85025

== ENCOUNTER 2025-07-10 15:02 | Outpatient (OUT) | payer OTHER, SELFPAY ==
--- OUTSIDE RECORDS SUMMARY | 2024-09-03 10:30 | XMS_ITS ---
Author Organization The [facility] in [place] Address [address] [place] [address] Care Team Providers Care Operations Engineer Name Role Phone None, Unknown or Primary Care Provider Unavailab Mathew Lee Unavailable [phone] REASON FOR VISIT Left foot, surgical discussion about removal of hardware Encounters Encounter Location Date Provider Diagnosis [facility] (PODIATRY) [address] [place] [address] [place] [address] 09/03/2024 Mathew Hoff Left foot pain M79.672 Assessments Encounter Date Diagnosis (ICD Code) Assessment Notes Treatment Notes Treatment Clinical Notes Section Notes 09/03/2024 Left foot pain (ICD-10 - M79.672 ) Plan Of Treatment Pending Test Test Name Order Date XR Foot LT (3 views) * 09/03/2024 Progress Notes * Talia RUTHERFORDDOB:[birth year] (55 yo F)Acc No.[id number]:09/03/2024 UNLOCKED PROGRESS NOTE Follow Up Patient: Talia FREED :?Mathew Hoff DPLashaun, MSDOB:1970???Age: 54 Y???Sex:FemaleDate:09/03/2024Phone:[phone]:270 [address]IDA [id number]:Unknown or None Subjective: * Chief Complaints: * 1 . Left foot, surgical discussion about removal of hardware. * Medical History: Objective: * Vitals: Assessment: * Assessment: 1.?Left foot pain - M79.672??? Plan: * Treatment: ?Imaging: XR Foot LT (3 views) * * * Electronic signature of Mathew Hoff DPM on 07/10/2025 at 03:07 PM ESTSign off status: PendingVisit Status:?N/S N/C (No Show/No Charge) * Provider: Miguel Hoff DPM, MS Date: 0 09/03/2024 Generated for Printing/Faxing/eTransmitting on:?07/10/2025 03:07 PM EST
--- OUTSIDE RECORDS SUMMARY | 2025-07-08 14:45 | XMS_ITS | Encounter Summary ---
Author Organization [facility] tem Address [id number] [address] 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 Primary Care Provider Encounter Details DateTypeDepartmentCare Team (Latest Contact Info)Wqyjxqiyrqd60/16/2025 2:45 PM ESTProcedure visit [facility] On [address] [address] Preop testing (Primary Dx) Social History Tobacco UseTypesPacks/DayYears UsedDateSmoking Tobacco: Every DayCigarettes1.539 Started: 1986Smokeless Tobacco: Never Tobacco Cessation:Ready to Q uit: Not Asked; Counseling Given: Not Answered Alcohol UseStandard Drinks/WeekCommentsNot Currently0 (1 standard drink = 0.6 oz pure alcohol)ONCE OR TWICE A YEARChildcareAnswerDate RecordedChildcareUnknown 01/02/2019EmploymentAnswerDate DralnsuzRwnqeagypzEhytubl33/12/2019Hunger ScreeningAnswerDate RecordedWithin the past 12 months we worried whether our food would run out before we got money to buy more.Never True07/08/2025Within the past 12 months the food we bought just didn't last and we didn't have money to get more.Never True07/08/2025Purpose - LifeAnswerDate RecordedPurpose and direction in qbszVspbdsn78/11/2021CommentsNoSex and Gender Information ValueDate RecordedSex Assigned at BirthNot on fileLegal SedIqgvgh50/06/2015 12:10 PM EDTGender IdentityNot on fileSexual OrientationNot on filedocumented as of this encounter Last Filed Vital Signs Vital SignReadingTime TakenCommentsBlood Pressure--Frkmz489507/08/2025 3:19 PM EST Ertjslfnifz88.4 ??C (97.6 ??F)07/08/2025 3:19 PM ESTRespiratory Ddjt205009/08/2024 3:19 PM ESTOxygen Onlpfpefru09%07/08/2025 3:19 PM ESTInhaled Oxygen Concentration--Aphjjh64.1 kg (185 lb 6.5 oz)07/08/2025 3:19 PM KBVSulmlf949.1 cm (5' 5 )07/08/2025 3:19 PM ESTBody Mass Index30.8507/08/2025 3:19 PM EST documented in this encounter Functional Status * Food InsecurityQuestionAnswerDate of AssessmentAuthorWithin the past 12 months the food we bought just didn't last and we didn't have money to get more.Never True07/08/2025 3:19 PM Stacy Patterson RNWithin the past 12 months we worried whether our food would run out before we got money to buy more.Never True07/08/2025 3:19 PM Stacy Patterson RN * AN Cardiac QuestionsQuestionAnswerDate of AssessmentAuthorCP when climbing a flight of stairs or walking a city block?No07/08/2025 3:19 PM Stacy Patterson RNSOB when climbing a flight of stairs or walking a city block?No 07/08/2025 3:19 PM Stacy Patterson RN * BEE (kcal)AnswerDate of SoxgeshrxnNhnqgt220719/16/2025 3:19 PM Stacy Patterson RN * VitalsQuestionAnswerDate of IihrzryuzfNwkeejYrrp21.6109/08/2024 3:19 PM Stacy Hancock RNTemp vbvXmwjgyis04/16/2025 3:19 PM Stacy Patterson RN Hkhgh781807/08/2025 3:19 PM Stacy Patterson RNResp18109/08/2024 3:19 PM Stacy Hancock RNSpO29507/08/2025 3:19 PM Stacy Patterson RNBP Location Right arm07/08/2025 3:19 PM Stacy Patterson RNBP WlngbpQjqlydzzi58/16/2025 3:19 PM Stacy Patterson RN * Height and WeightQuestionAnswerDate of TayxsqkopoTdfncaRmyhlu7010/16/2025 3:19 PM Stacy Patterson RNWeight2966.51109/08/2024 3:19 PM Stacy Patterson RNHeight WyeqmdSmoupt71/16/2025 3:19 PM Stacy Patterson RNBSA (Calculated - sq m)1.9607/08/2025 3:19 PM Stacy Patterson RNBMI (Calculated)30.9 07/08/2025 3:19 PM Stacy Patterson RNWeight in (lb) to have BMI = 15613.9 07/08/2025 3:19 PM Stacy Patterson RN * RespiratoryQuestionAnswerDate of AssessmentAuthorRespiratory (WDL)WDL 07/08/2025 3:42 PM Stacy Patterson RN * Values/BeliefsQuestionAnswerDate of AssessmentAuthorCultural Requests During XjwpqbesltyupssBAXG19/16/2025 3:19 PM Stacy Patterson RNSpiritual Requests During DxdxsrkdqhuhesxAWBP68/16/2025 3:19 PM Stacy Patterson RN * Abuse Indicator ScreeningQuestionAnswerDate of AssessmentAuthorSafe in HomeYes 07/08/2025 3:19 PM Stacy Patterson RNDo you feel safe in your relationship(s)?Yes07/08/2025 3:19 PM Stacy Patterson RNAre you in immediate danger?No07/08/2025 3:19 PM Stacy Patterson RN * Psychosocial ConsultsQuestionAnswerDate of AssessmentAuthorSpiritual Care Consult RcmrldEm24/16/2025 3:19 PM Stacy Patterson RNSocial Services Consult WgraatVk84/16/2025 3:19 PM Stacy Patterson RNPalliative Care Consult HpqvdzDl57/16/2025 3:19 PM Stacy Patterson RN * Blood HistoryQuestionAnswerDate of AssessmentAuthorHave you had a blood transfusion?Yes07/08/2025 3:05 PM Stacy Patterson RNHave you ever had a blood transfusion reaction?No07/08/2025 3:05 PM Stacy Patterson RNWould you accept a blood transfusion in a life-threatening situation?Yes07/08/2025 3:05 PM Stacy Patterson RN * Medical Advance DirectiveQuestionAnswerDate of AssessmentAuthorType of Medical Healthcare DirectiveDurable power of real estate attorney for health care;Health care treatment directive;Living will07/08/2025 3:18 PM Stacy Patterson RN Medical Advance Directive not in ChartCopy requested from vkfjmvd2507/08/2025 3:18 PM Stacy Patterson RNDo you have a Medical Advance Directive?Yes 07/08/2025 3:18 PM Stacy Patterson RNMedical Advance Directive StatusCopy not in chart07/08/2025 3:18 PM Stacy Patterson RN * Behavioral Health Advance DirectiveQuestionAnswerDate of AssessmentAuthorDo you have a Behavioral Health Advance Directive?No07/08/2025 3:18 PM Stacy Hancock RNBehavioral Health Advance Directive InformationPatient would not like ctlurchwukz84/16/2025 3:18 PM Stacy Patterson RN * Influenza Vaccine Screen - April Through SeptemberQuestionAnswerDate of AssessmentAuthorHave you had an influenza vaccine this season?No07/08/2025 3:19 PM Stacy Patterson RN * Pain AssessmentQuestionAnswerDate of AssessmentAuthorPain AssessmentNo/denies pain07/08/2025 3:19 PM Stacy Patterson RN * CardiovascularQuestionAnswerDate of AssessmentAuthorCardiovascular (WDL)WDL 07/08/2025 3:42 PM Stacy Patterson RN * TB ScreeningQuestionAnswerDate of AssessmentAuthorPatient has prolonged cough? No07/08/2025 3:19 PM Stacy Patterson RNPatinargis has bloody cough?No 07/08/2025 3:19 PM Stacy Patterson, RNPatient has fever?No07/08/2025 3:19 PM Stacy Patterson RNPatient has night sweats?No07/08/2025 3:19 PM Stacy Hancock RNPatient has weight loss?No07/08/2025 3:19 PM Stacy Patterson RNPatient has positive PPD?No07/08/2025 3:19 PM Stacy Patterson RN * BEE (kcal)AnswerDate of ShvmlgonqnKqcbil352888/16/2025 3:19 PM Stacy Patterson RN * VitalsQuestionAnswerDate of ZngnrcujeeQbjhfoZkmq69.6109/08/2024 3:19 PM Stacy Hancock RNTemp nnyUxfbpmgc14/16/2025 3:19 PM Stacy Patterson, RN Shgki540807/08/2025 3:19 PM Stacy Patterson, PUGulr7263/16/2025 3:19 PM Stacy Hancock, BJFeK23409/16/2025 3:19 PM Stacy Patterson, RNBP Location Right arm07/08/2025 3:19 PM Stacy Patterson, RNBP CwgcrxBfiynrikj94/16/2025 3:19 PM Stacy Patterson, ELHAM * Height and WeightQuestionAnswerDate of DgnjdgoksoCswtrxQjrtxb2499/16/2025 3:19 PM Stacy Patterson, BOLeluby1812.51109/08/2024 3:19 PM Stacy Patterson RNHeight BwmrybOobgtu61/16/2025 3:19 PM Stacy Patterson, RNBSA (Calculated - sq m)1.9607/08/2025 3:19 PM Stacy Patterson, ELHAMBMI (Calculated)30.9 07/08/2025 3:19 PM Stacy Patterson RNWeight in (lb) to have BMI = 52592.9 07/08/2025 3:19 PM Stacy Patterson RN documented as of this encounter Mental Status * VitalsQuestionAnswerEntry LfvuWgidpvZlka44.6109/08/2024 3:19 PM Stacy Patterson RNTemp qiwGnkurcwi54/16/2025 3:19 PM Stacy Patterson, BGAhvin75 07/08/2025 3:19 PM Stacy Patterson BBDwbj0985/16/2025 3:19 PM Stacy Patterson, EXMrA73435/16/2025 3:19 PM Stacy Patterson RNBP LocationRight arm 07/08/2025 3:19 PM Stacy Patterson RNBP VzzbeqInkemkobb25/16/2025 3:19 PM Stacy Patterson RN * RespiratoryQuestionAnswerEntry DateAuthorRespiratory (WDL)WDL109/08/2024 3:42 PM Stacy Patterson RN * Pain AssessmentQuestionAnswerEntry DateAuthorPain AssessmentNo/denies pain 07/08/2025 3:19 PM Stacy Patterson RN documented in this encounter Patient Instructions * Patient Instructions* Stacy Velasquez RN - 07/08/2025 2:45 PM EST Images from the original note were not included. Your surgery/procedure is scheduled at [facility] on 07/22 at 2:30PM Arrival Time 12:30PM [facility] Address: [address] [place] [address], [facility], [address] [address] in the Emergency Center Parking lot. Report to the front office supervisor in the Emergency/Surgery Registration lobby of the hospital. Notify your SURGEON if you develop any illness such as a cold, cough, fever, sore throat, vomiting or are hospitalized between now and your surgery. Please call Pre-Admission Clinic at [phone] if you have any questions prior to surgery. For questions the morning of surgery, call the Pre-op Department at [phone]. Medication Instructions (Do not stop your medications without consulting the prescribing physician). Take the following medications the morning of surgery with a sip of water: CARIPRAZINE, HUNG, GABAPENTIN, PREVACID, ESOMEPRAZOLE, LAMOTRIGINE Diabetic or Weight loss medications: HOLD N/A LAST DOSE N/A Take inhalers as prescribed the morning of surgery. Due to the risk associated with these medications. If these medications are not held per instruction below, your surgery is at an increased risk for cancellation SGLT2 Medications- Hold 3 days prior to surgery: Jardiance, Empagliflozin, Farxiga, Dapagliflozin, Invokana, Canagliflozin, Trijardy, Synjardy GLP-1 Medications (Injection or Pill)- If taken daily hold day of surgery. If taken weekly, hold 1 week prior to surgery: Adlyxin, Byetta, Bydureon, Ozempic, Rybelsus,Trulicity, Victoza, Wegovy, Lixisenatide, Exenatide, Semaglutide, Dulaglutide, Liraglutide GIP/GLP-1(Injection or Pill)- If taken daily hold day of surgery. If taken weekly, hold 1 week prior to surgery: Mounjaro . Blood thinners: Please contact your prescribing physician regarding a stop/hold date for these medications. Medications such as Coumadin, Heparin, Aspirin, Plavix, Eliquis, Pradaxa Diabetics: If you take insulin, contact your prescribing doctor for instructions on how to manage this the night before and the morning of surgery. Non-steriodal Anti-Inflammatory Drugs (NSAIDS)- Hold 7 days prior to surgery unless otherwise directed by your surgeon. Vitamins/Herbal Products: You may continue to take your prescribed vitamins such as potassium, iron, vitamin B, vitamin C, or multivitamin unless specifically instructed by your surgeon to hold. STOPtaking all herbal products/teas one week prior to your surgery. Marijuana: Stop marijuana 72 hours prior to surgery, stop CBD oil 48 hours prior to surgery. If you have been given bowel prep instructions by your surgeon, please call the surgeon's office with any questions about these instructions. What do I do the day of Surgery? Age 2 through adult - Stop all solids by midnight, You may have a smalll amount of clear liquids up to 2 hours before surgery, unless otherwise instructed by your surgeon Clear liquids are: water, sports drinks such as Gatorade or G2, or apple juice. You may NOT have: tube feedings, dairy products, alcoholic beverages, orange juice, or any liquids with solids or pulp in it If applicable, shower again with CHG soap the morning of your surgery. What do I need to do to prepare for surgery? If you will be going home the same day as your surgery, arrange for an adult over [address] Riding in a bus or taxi by yourself is not permitted. You should not smoke or drink alcohol 24 hours before your surgery. Alcohol thins the blood and may cause bleeding problems during surgery Smoking increases the risk of breathing problems after surgery. It also increases your risk for infection, and may delay healing. Do not use lotions, creams, powders, perfume, make up, cologne or after-shaves day of surgery. Remove ALL jewelry including wedding rings, body piercings, hair extensions that contain metal, nail trinidadian, make-up, and contact lens. You may brush your teeth the morning of surgery, but do not swallow the water. Wear your dentures and partial plates to the hospital (no adhesive). Shower the night before your procedure. If applicable, use the CHG (chlorhexidine gluconate) soap or wipes. Please place clean linens on your bed after showering. Do not allow your pets in your bed. Please be advised, [facility] has transitioned to a cashless payment system. What should I bring to the hospital? Eyeglass or contact lens case If you will be spending the night, please bring personal care items and leave them in the car untilyou are taken to your room after surgery. Leave ALL valuables at home. If any of these instructions conflict with those you received from the surgeon, please seek clarification from your surgeon's office. DEEP BREATHING EXERCISES This exercise helps promote good air exchange and helps to prevent pneumonia after surgery. Breathe in slowly and deeply through the nose. Hold your breath for a few seconds and then exhale slowly through the mouth. Repeat this three times and then cough. Coughing helps to clear your lungs. If you have had a surgery with an incision into your abdomen or chest, press gently against your incision with a pillow or a folded blanket when you cough. Please be aware - it may not be george to cough following some types of surgeries involving the eyes,ears, sinuses and throat. Always follow your doctor's instructions. LEG EXERCISES These exercises help promote good circulation and help to prevent blood clots after surgery. Point your toes to the ceiling and then point them to the wall. Do this slowly about 15-20 times. You may also move your feet in circles. Do the exercise that is most comfortable for you. If you have had surgery involving your shoulder or arm, we recommend you move your fingers. PRACTICING We ask that you begin practicing these exercises before your surgery. After surgery try to do both exercises at least every 2 hours during the day and early evening. Surgical Site Infection Prevention What is a Surgical Site Infection (SSI)? Infection can happen to the area of the body where surgery is done. This is called a surgical site infection (SSI). A SSI does not happen very often. What are some of the things that hospitals are doing to prevent SSIs? Soap and water or alcohol hand rub are used before and after caring for each patient. Special soap is used to clean surgery workers hands and arms just before the surgery. Masks, gowns, gloves and hair covers are worn during the surgery to keep the area clean. Hair in the surgery area may be removed with clippers (not razors). A special soap that kills germs is used to clean the skin at the surgery site. Antibiotics may be given before the surgery starts. What can you do to prevent SSIs? Before surgery: You may be asked to shower or bathe with a special soap that kills germs the night before and the day of surgery. Use the soap as you were told. Place clean sheets on your bed the night before surgery and do not allow your pets in your bed. If you smoke or vape, stop or cut down. This creates a stress response in your body that increases inflammation, constricts blood vessels and deprives your tissues of oxygen. After surgery, this stress response disrupts the travel of oxygen, nutrients, and blood to your surgical site, interfering with the wound healing process. It also decreases the ability of your cells to fight infection. Ask your doctor about ways to quit. If you have high blood sugars or diabetes please talk with your doctor about having healthy blood sugar levels to promote healing. Do not shave near where you will have surgery. Shaving can irritate the skin and make it easier to get and infection. After surgery: Be sure that the doctors and nurses clean their hands before and after touching you. Be sure your family and friends clean their hands before and after visiting you. Do not be afraid to remind them. Always wash your hands before touching your incisional area. * Care for your wound at home as told by your doctor or nurse * Call your doctor right away if you have fever, redness, increased pain, or drainage at the surgery site. Can SSIs be treated? Antibiotics are used to treat SSI. Some patients may need another surgery to treat the infection. The doctor will discuss treatment options with you. Further questions? Contact the doctor, nurse or the Infection Prevention and Control department if you have any questions. PATIENT RIGHTS AND RESPONSIBILITIES As a patient at [facility], you have the right to: Receive medical care and be informed of who is taking care of you Be treated with dignity and respect Have a family member/contact center representative of choice and your physician notified of your admission Receive information and actively participate in decisions about your care and treatment Refuse care, treatment and services Decide who may provide your support and speak for you Access lutheran and spiritual services Participate in ethical issues and questions about your care Receive private and confidential care Have appropriate assessment and management of your pain Know guest visitation restrictions or limitations Have an advance directive Access protective services Consent or refuse to participate in research studies or production or recordings, films or other images Have resolution of your complaints Receive information of hospital charges and payment methods Patient/patient contact center representative responsibilities are to: Provide information about health status to facilitate care, treatment and services Follow the treatment, plan, keep appointments and speak up when you do not understand the plan Respect the rights of other patients and healthcare personnel Follow organizational rules and regulations that support quality care and a safe environment Fulfill financial obligations as promptly as possible Full Body Surgical Prep Instructions Night Before Surgery Cleaning the skin before surgery can lower the risk of infection at the surgical site. This sheet will tell you how to use the clothes that have a rinse-free, 2% Chlorhexidine Gluconate (CHG) soap onthem. Follow the steps below very carefully Important Information: Do not use if allergic to CHG Do not shave your surgical area (or near the area) for 3 days before surgery. Shower (or bathe) and shampoo your hair with regular soap and shampoo at least one hour before you use the CHG cloths to clean your skin. Be sure your skin is completely dry and cool. Clean your skin with the CHG cloths the night before surgery at your home. Do not rinse off the CHG CHG may cause skin to itch or get red for a short time. If you have itching or redness that does not go away, rinse the areas and stop using the CHG clothes. Do not shower the morning of surgery. You may shampoo your hair at a sink. Directions: 1. Remove the plastic wrap. There are 6 wipes in the package. 2. Do not let the CHG get in your eyes, ears, mouth. Do not use on open skin wounds (cuts, scrapes,sores). 3. Wipe your body in a back and forth motion using all six (6) cloths. Use each cloth for 30 seconds while using a firm massage . Cloth # 1 - Wipe your neck, shoulders, chest. The area above the jawline can be washed with soap and water. Do not allow soap and water to go below the jawline. Soap can inactivate the CHG. Cloth # 2 - Wipe both arms and hands, starting each with the shoulder and ending at fingertips. Be sure to wipe the arm pit areas. Cloth # 3 - Wipe your abdomen and groin. Be sure to wipe folds in belly and groin areas. Cloth # 4 - Wipe right leg and right foot, starting at the thigh and ending at the toes. Be sure towipe behind your knees. Cloth # 5 - Wipe left leg and left foot, starting at the thigh and ending at the toes. Be sure to wipe behind your knees. Cloth # 6 - Wipe your back starting at the base of your neck and ending at your buttocks. Cover as much area as possible. You may need help from someone. Allow area to air dry for one minute and do not rinse. It is normal for the skin to have a sticky feel for a few minutes after you use the cloths. Do not apply any lotion. Do not shower after you use the cloths. Dress in clean pajamas at night and wear clean clothes the morning of surgery. Place freshly laundered sheets on your bed after using the wipes Do not allow pets in your bed documented in this encounter Miscellaneous Notes * Perioperative Nursing Note - Stacy Velasquez RN - 07/08/2025 2:45 PM EST Patient had a CBC and BMP drawn at [facility] on 07/03/25. Lab work faxed to Dr. Asif's office. documented in this encounter Plan of Treatment DateTypeDepartmentCare Team (Latest Contact Info)Ilacscmagmz54/30/2025 2:30 PM ESTHospital Encounter [facility] - Surgery [address] [place] [address] Tania Asif MD [address] [facility] [address] [place] [address] 07/22/2025 2:30 PM EST - 07/22/2025 5:15 PM ESTSurgery [facility] - Surgery [address] [place] [address] Tania Asif MD [address] [place] [address] [place] [address] DAVINCI HYSTERECTOMY SALPINGO OOPHORECTOMY [[id number] (CPT??)]09/03/2025 3:15 PM EST Office Visit [facility] Pelvic [facility] - Urogyn [address] [facility] [facility] [address] [facility] [place] [address] Tania Asif MD [address] [place] [address] NamePriorityAssociated DiagnosesDate/TimeDAVINCI HYSTERECTOMY SALPINGO OOPHORECTOMY Cystocele with second degree uterine prolapse 07/22/2025 2:30 PM ESTDAVINCI SUSPENSION LIGAMENT UTEROSACRAL Cystocele with second degree uterine prolapse 07/22/2025 2:30 PM ESTREPAIR ANTERIOR CYSTOCELE VAGINA Cystocele with second degree uterine prolapse 07/22/2025 2:30 PM ESTCYSTOSCOPY Cystocele with second degree uterine prolapse 07/22/2025 2:30 PM ESTdocumented as of this encounter Goals GoalPatient Goal TypeAssociated ProblemsRecent ProgressPatient-Stated?Author Autogenerated Goal Care PlanAutogenerated ProblemNoElizabeth Villalta Adocumented as of this encounter Procedures Procedure NamePriorityDate/TimeAssociated DiagnosisCommentsREPEATED ABORHRoutine 07/08/2025 3:48 PM EST Preop testing TYPE AND AHRDJFOnjmpbd90/16/2025 3:48 PM EST Preop testing documented in this encounter Results * ABO Rh Repeat (07/08/2025 3:48 PM EST)ComponentValueRef RangeTest Method Analysis TimePerformed AtPathologist QrnpisogcHSHDR20/16/2025 10:50 PM ESTTFL BB - VTZBCGRJKYwzzinvt37/16/2025 10:50 PM ESTTFL BB - WELLSKYSpecimen (Source) Anatomical Location / LateralityCollection Method / VolumeCollection Time Received TimeBloodVenous blood / UnknownVenipuncture / Nrfzgnc9407/08/2025 3:48 PM EST07/08/2025 3:48 PM EST Narrative Authorizing ProviderResult TypeResult StatusAntonio Wall MDBLOOD BANK TEST ORDERABLESFinal ResultPerforming OrganizationAddressCity/State/ZIP CodePhone Number [facility] [address] [place] [address], * Type and screen(includes indirect clovis) (07/08/2025 3:48 PM EST)Component ValueRef RangeTest MethodAnalysis TimePerformed AtPathologist SignatureABOAB 07/08/2025 8:22 PM ESTTFL BB - KYGFKOOTRQgtrbtlm03/16/2025 8:22 PM ESTTFL BB - WELLSKYAntibody SpbachGgmwrpze25/16/2025 8:22 PM ESTTFL BB - WELLSKYSpecimen (Source)Anatomical Location / LateralityCollection Method / VolumeCollection TimeReceived TimeBloodVenous blood / UnknownVenipuncture / Kkkishk0407/08/2025 3:48 PM EST07/08/2025 3:48 PM EST Narrative Authorizing ProviderResult TypeResult StatusAntonio Wall MDBLOOD BANK TEST ORDERABLESEdited Result - FinalPerforming OrganizationAddressCity/State/ZIP Code Phone Number [facility] [place] [address] [place] [address], documented in this encounter Visit Diagnoses Diagnosis Cystocele with second degree uterine prolapse- Primary Preop testing- Primary Unspecified pre-operative examination Cystocele with second degree uterine prolapse documented in this encounter Additional Health Concerns Active ProblemsNoted DateDiagnosed DateAutogenerated Qniixle6505/30/2025documented as of this encounter Care Teams Team MemberRelationshipSpecialtyStart DateEnd Date Pascale Arana, REED PRESS FEEDER-FIBER GLASS WORKER [address] [place] [address] PCP - GeneralNurse Practitioner04/02/25documented as of this encounter
--- OUTSIDE RECORDS SUMMARY | 2025-07-10 15:07 | XMS_ITS | Clinical Summary ---
Author Organization [facility] Address [address] [place] [address] Care Team Providers Care Garment Patternmaker Name Role Phone Shaikh NITHIN Main Primary Care Provider [phone] Allergies Active AllergyReactionsCriticalityNoted UkdxCcooteqfWjpogmmiave73/19/2023 Medications MedicationSigDispense QuantityRefillsLast FilledStart DateEnd DateStatus citalopram [...] InformationValueDate RecordedSex Assigned at BirthNot on fileLegal DcqOtbxzj97/29/2022 10:25 PM EDT Gender IdentityNot on fileSexual OrientationNot on file Last Filed Vital Signs Vital SignReadingTime TakenCommentsBlood Qswtdlrv07/6109 3:16 PM EDT Utzht8791 3:16 PM EDTTemperature--Respiratory Rate--Oxygen Tphzlbxixf21% 04/07/2023 3:16 PM EDTInhaled Oxygen Concentration--Deifgs413 kg (224 lb) 04/07/2023 3:16 PM ZOEWospeq414.1 cm (5' 5 )04/07/2023 3:16 PM EDTBody Mass Index37.28004/07/2023 3:16 PM EDT Plan of Treatment Health MaintenanceDue DateLast DoneCommentsCT Ohqkcblcjkvs1971Colonoscopy 1971Colorectal Cancer Jqigvukee1971FIT-DNA1971FIT1971 FOBT1971Lwbwgpyffrxag1971Depression Jkssunsas59/13/1983Hepatitis B Vaccines (1 of 3 - 19+ 3-dose series)1990Pneumococcal Vaccine: Pediatrics (0 to 5 Years) and At-Risk Patients (6 to 64 Years) (1 of 2 - PCV)1990Pap Smear1992Adult Nfioous9704/05/1993Cervical Cancer Fbtgvpfiw48/13/2001 HPV/Cwvjzy5704/05/20011583Mivbsjayb12/13/2011Zoster Vaccines (1 of 2)1COVID- 19 Vaccine (1 [...]
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
--- OUTSIDE RECORDS SUMMARY | 2025-07-10 15:07 | XMS_ITS | Patient Health Record ---
Author Organization [facility] [employer] [facility] Address [address] [address], [facility] [place] [address] Care Team Providers Care Assistant Branch Operations Manager Name Role Phone SuMathew sal Unavailable [phone] Allergies Allergen (clinical drug ingredient) Drug/Non Drug [...] at bedtime as needed Orally Once a nkkTwmfmxJyyrnfci89/22/2025ActiveVitamin B1203/14/2025 ActiveVraylar 3 MG CapsuleOral; Duration: 30 DaysActiveAllegraActiveDetrol [place] 3884XrjdviIirbyxce48/22/2025Active Social History Section Notes: Patient is a current smoker. No alcohol use. Exercise habits: Active Lifestyle Living situation: Lives at home in [place], [place] Encounters Encounter Location Date Provider Diagnosis [facility] [address] [address], 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 Lives in [place], risk due to limited sun exposure. - [...] Start Date Coverage End Date [employer] [address] [address] [place] [address] [id number] Kenyon Mercado - patient is the insured Medical (General) History Medical History History ICD Code GERD
--- OUTSIDE RECORDS SUMMARY | 2025-07-10 15:08 | XMS_ITS | Clinical Summary ---
Author Organization [facility] Address [address] [place] [address] Care Team Providers Care Pigment Furnace Tender Name Role Phone Molina De Anda MD Primary Care Provider [phone] Valerie Groves PATENT LEGAL ASSISTANT Unavailable [phone] Karime Dias PMHNP- Unavailable [phone] Allergies Active AllergyReactionsCriticalityNoted PpsoSwlqqijoGkuhsmtmxieCcvsw23/12/2023 Medications MedicationSigDispense QuantityRefillsLast FilledStart DateEnd DateStatus fexofenadine [...] DateGAD (generalized anxiety disorder)03/06/2025 Spinal stenosis, lumbosacral lwdjoi0102/05/2025Spinal stenosis, cervical region 02/05/2025Sleep apnea01/22/2025Severe episode of recurrent major depressive disorder, without psychotic nfupeatv89/02/2025 Assessment & Plan (02/25/2025 12:45 PM EDT): Was referred to psych, they are currently managing meds Is off on FMLA for this PTSD (post-traumatic stress disorder)01/22/2025 Assessment & Plan (02/25/2025 7:23 AM EDT): Dx as per psych Abnormal Papanicolaou smear of cervix with positive human papilloma virus (HPV) test11/27/2024 Overview (11/27/2024): Pap smear 11/15 Hot flashes due to asgkawmcj15/30/2025 Assessment & Plan (11/20/2024 4:37 PM EDT): Discussed insurance concern over dose of celexa, she takes for hot flashes she is willing to trial a decrease in dose to 20mg and will cut her current pill in half BMI 32.0-32.9,adult10/23/2024Overactive bladder due to prolapse of female genital organ10/02/2024Headache, menstrual migraine, with status migrainosus 08/12/2024Malaise and eqzmwnv8508/12/2024Detrusor muscle sisgpsslhk62/20/2025lass 1 obesity due to excess calories without [...] options for weight loss. Environmental and seasonal oiuhuixxk26/20/2025 Assessment & Plan (08/12/2024 4:42 PM EST): Cont layla, add flonase History of GI bleed03/06/2024LUQ abdominal pain03/06/20247512Aavlqssfdlgr51/07/2024 Assessment & Plan (04/10/2024 6:44 PM EDT): [...] ready to start this process Antibiotic-induced yeast otdvjkych09/22/2024 Assessment & Plan (08/15/2023 12:15 AM EST): Will order Fluconazola in case she develops abx induced yeast infection History of gastric zfpwbt7108/04/2023 Assessment & Plan (11/13/2023 5:18 PM EDT): On B12 injection and required IV iron. Monitor Iron deficiency jxbjsp5308/04/2023 Assessment & Plan (02/25/2025 12:45 PM EDT): [...] Iron due to prior gastric bypass surgery. Gysfdiqourhi28/12/2023 Assessment & Plan (01/06/2025 6:10 PM EDT): [...] Elevate HOB if possible Current med: lansoprazole Ftfirmsu04/12/2023 Assessment & Plan (02/25/2025 12:44 PM EDT): [...] prior gastric bypass. Plantar fasciitis of right foot06/30/20239218Pterjxbxl00/08/2023Uterine prolapse 06/30/2023 Resolved Problems ProblemNoted DateDiagnosed DateResolved DateUTI (urinary tract infection), dkrtgqorxarzw09/24/202504/Well woman exam with routine gynecological exam / Assessment & Plan (11/20/2024 4:32 PM EDT): Thin prep: fu as per pap indications Monthly BSE Weight bearing exercise as well Encounter for screening mammogram for malignant neoplasm of mxjnkh9110/02/2024 01/22/2025MI 34.0-34.9,adult/08/2024Female genital symptoms /Problem related to unspecified psychosocial circumstances /4674Nhuwifb41/20/202503/06/20252729Leokba33 Assessment & Plan (01/06/2025 6:09 PM EDT): See bipolar entry Icuwmxxafnjt55/20/202504/ute non-recurrent maxillary sinusitis /06/2025 Assessment & Plan (08/12/2024 4:41 PM EST): Zithromax , finish atb Fluids, rest Fu if not better, add steroid nasal spray Cutaneous abscess of abdominal wall/ Overview (08/12/2024): [employer] [id number] EXP: 10/22/2026 LOT # [id number] Assessment & Plan (08/12/2024 5:50 PM EST): [...] daily if no contraindications Screening for diabetes jwwaaizm08/06/2025 Assessment & Plan (01/22/2024 5:28 PM EDT): Screen for T2 DM Encounter for screening mammogram for breast yacynp91/06/2025 Assessment & Plan (01/22/2024 5:29 PM EDT): Ordered mammogram. Seizure-like eepjnxow90/08/2024 Assessment & Plan (01/22/2024 5:28 PM EDT): [...] both ears without spontaneous rupture of tympanic xpypwhhwf10Overactive qcvphhv9411/13/2023 01/06/2025utaneous abscess of groin Assessment & Plan [...] prednisone and benzonatate. Bipolar disorder with severe aqerhqrztc81/12/202307/08/2024 Assessment & Plan (01/06/2025 6:09 PM EDT): [...] or concerns related to new medications. Breast utdhwxxoh07/06/2025 Assessment & Plan (07/04/2023 3:48 PM EST): Ordered mammogram Menorrhagia with regular cycle/ Encounters DateTypeDepartmentCare CariYydtlizvbsp61/03/2025 2:00 PM ESTOffice Visit [facility] [address] [address] [place] [address] Macarena Chang, PROFILING MACHINE SET UP OPERATOR-HOSPICE ADMINISTRATOR Severe episode of recurrent major depressive disorder, without psychotic features (HCC); Bipolar disorder with severe depression (HCC); JESSIKA (generalized anxiety disorder); PTSD (post-traumatic stress disorder)06/25/2025amboo flowsheet [facility] [address] [facility] [address] [place] [address] Macarena Chang PROFILING MACHINE SET UP OPERATOR-HOSPICE ADMINISTRATOR 06/25/20256090Bviwqg69/01/2025Refill [facility] [address] [facility] [address] [place] [address] Macarena Chang, PROFILING MACHINE SET UP OPERATOR-HOSPICE ADMINISTRATOR Severe episode of recurrent major depressive disorder, without psychotic features (HCC)06/16/2025Refill [facility] [address] [facility] [address] [place] [address] Dina Miller LPN JESSIKA (generalized anxiety disorder); Severe episode of recurrent major depressive disorder, without psychotic features (HCC); PTSD (post-traumatic stress disorder)06/15/2025Refill [facility] [address] [place] [address] Angeli-Macarena Santos, PROFILING MACHINE SET UP OPERATOR-HOSPICE ADMINISTRATOR JESSIKA (generalized anxiety disorder); Severe episode of recurrent major depressive disorder, without psychotic features (HCC); PTSD (post-traumatic stress disorder)06/09/2025Refill [facility] [address] [place] [address] Karime Dias PMHN-TWIN JESSIKA (generalized anxiety disorder); Severe episode of recurrent major depressive disorder, without psychotic features (HCC); PTSD (post-traumatic stress disorder)06/02/2025 3:00 PM ESTOffice Visit [facility] [address] [facility] [address] [place] [id number] Macarena Chang, PROFILING MACHINE SET UP OPERATOR-HOSPICE ADMINISTRATOR Severe episode of recurrent major depressive disorder, without psychotic features (HCC)06/02/2025amboo flowsheet [facility] [address] [facility] [address] [place] [phone] AngeliMacarena Lucio, PROFILING MACHINE SET UP OPERATOR-HOSPICE ADMINISTRATOR 06/02/20255191Imstpc27/29/2025Telephone [facility] [address] [facility] [address] [place] [address] Rohan Burns LPC from Last 3 Months Family History Medical HistoryRelationNameCommentsDiabetesFatherCharlesHeart diseaseFather CharlesHypertensionFatherCharlesStrokeFatherCharlesBreast cancerMaternal GrandmotherThyroid cancerMaternal GrandmotherDepressionMotherConnieDiabetes MotherConnieBreast cancerMother's SisterRelationNameStatusCommentsDaughter 1 AliveDaughter 2AliveDaughter 3AliveFatherCharlesAliveMaternal Grandmother DeceasedMotherConnieAliveMother's SisterAliveSonAlive Social History Tobacco UseTypesPacks/DayYears UsedDateSmoking Tobacco: Every LjpMybvepvmtd975 Started: 1986Passive Smoke Exposure: PastSmokeless Tobacco: Never [...] week08/07/2023How often do you attend hindu or cheondoism services?Never08/07/2023o you belong to any clubs or organizations such as hindu groups, unions, fraternal or athletic groups, or school groups?No08/07/2023How often do you attend meetings of the clubs or organizations you belong to?Patient crmacbeb52/15/2024re you , , , , never , or living with a partner?Rqmerll1108/07/2023 AUDIT-CAnswerDate RecordedQ1: How often do you have [...] at all 08/07/2023HQ-2AnswerDate RecordedPatient Health Questionnaire-2 Score5 01/22/2025[facility] - Occupational Stress QuestionnaireAnswerDate RecordedDo you feel stress - tense, restless, nervous, or anxious, or unable to sleep at night because yourmind is troubled all the time - these days?To some mgmtak1908/07/2023Exercise Vital SignAnswerDate Recorded On average, how many [...] InformationValueDate RecordedSex Assigned at BirthNot on fileLegal LvaSbihhn71/15/2023 7:47 PM EDTGender IdentityNot on fileSexual OrientationNot on file Last Filed Vital Signs Vital SignReadingTime TakenCommentsBlood Ixuhqfxi175/6412 1:50 PM EST Jwzug915506/25/2025 1:50 PM CZCLusfanvgqui91.6 ??C (97.8 ??F)02/25/2025 11:31 AM EDTRespiratory Crlz023601/06/2025 4:32 PM EDTOxygen Fqmqextznc18%02/25/2025 11:31 AM EDTInhaled Oxygen Concentration--Xdjlsb32.5 kg (184 lb)06/25/2025 1:50 PM EST Wpcpwk990.1 cm (5' 5 )10/02/2024 4:51 PM EDTBody Mass Index30.62010/02/2024 4:51 PM EDT Plan of Treatment DateTypeDepartmentCare Team (Latest Contact Info)Wmpfzwwomae88/08/2026 10:00 AM ESTOffice Visit [facility] [address] [facility] [address] [place] [address] Macarena Chang, PROFILING MACHINE SET UP OPERATOR-HOSPICE ADMINISTRATOR [address] [facility] [address] [place] [address] Goals GoalPatient Goal TypeAssociated ProblemsRecent ProgressPatient-Stated?Author Help patient manage antidepressant medication Care PlanPatient on antidepressant monitoring planShaikh Gao MD Additional Health Concerns Active ProblemsNoted DateDiagnosed DatePatient on antidepressant monitoring plan 08/03/2023 Insurance Care Teams Team MemberRelationshipSpecialtyStart DateEnd Date Molina De Anda MD PCP - GeneralFamily Medicine02/21/24 Valerie Groves NP Nurse PractitionerPhaneuf Hospital Medicine02/21/24 Karime Dias [facility] [address] [place] [id number] Nurse PractitionerL[facility]au [facility]01/22/25
--- OUTSIDE RECORDS SUMMARY | 2025-07-10 15:08 | XMS_ITS | Clinical Summary ---
Author Organization [employer] tem Address [id number] [place] [address] Care Team Providers Care Area Development Manager Name Role Phone Pascale Arana APRN-RRT Primary Care Provider Allergies Active AllergyReactionsCriticalityNoted PxviZjifpzfaEjybbyewtqsFjxfr57/19/2023 Medications MedicationSigDispense QuantityRefillsLast FilledStart DateEnd DateStatus cyclobenzaprine (FLEXERIL) 10 mg tablet Take 1 [...] 5Active cariprazine (VRAYLAR) 1.5 mg capsule Take 3 capsules (4.5 mg total) by mouth in the morning.Active [...] mouth in the morning. 30 tablet 5Active albuterol (PROVENTIL HFA;VENTOLIN HFA) 90 mcg/actuation inhaler Inhale 1 puff every 4 (four) hours as needed for wheezing or shortness of breath.5Active cholecalciferol, vitamin D3, (VITAMIN D3) 5,000 units capsule Take 1 capsule (5,000 Units total) by mouth in the morning.5Active esomeprazole (NexIUM) 40 mg packet Take 40 mg by mouth in the morning and at bedtime.5Active lamoTRIgine (LaMICtal) 25 mg tablet Take 2 tablets (50 mg total) by mouth in the morning.5Active meloxicam (MOBIC) 15 mg tablet Take 1 tablet (15 mg total) by mouth in the morning. Discontinued(Therapy completed) DULoxetine (CYMBALTA) 30 mg capsule Take 1 capsule (30 mg total) by mouth in the morning.07/08/2025Discontinued(Dose adjustment) Active Problems ProblemNoted DateDiagnosed DateCystocele with second degree uterine prolapse 05/30/2025 Encounters DateTypeDepartmentCare FcgqThxcmoqekda07/16/2025 2:45 PM ESTProcedure visit [facility] [address] [address] Preop testing (Primary Dx)05/28/2025 2:30 PM ESTProcedure visit [facility] [address] [place] [address] Tania Asif MD Urge urinary incontinence (Primary Dx); Cystocele with second degree uterine prolapse; History of reconstructive repair of tbbgqpizv45/05/7936Vgggpn71/10/2025Telephone [facility]ro[facility]necology [address] [place] [address] Areli Gudino CMA from Last 3 Months Family History Medical HistoryRelationNameCommentsDiabetesFatherHeart attackFatherHypertension FatherStrokeFatherBreast cancerMaternal AuntDiabetesMaternal GrandfatherBreast cancerMaternal GrandmotherDiabetesMotherThyroid cancerPaternal Grandmother Anesthesia problemsNeg HxColon cancerNeg HxOvarian cancerNeg HxUterine cancerNeg KdUqijqffcSjncUixyslQtqjbbumMspwyyuey5JrufyIxrnzmGewhqhmvOgsjqpyb AuntAlive Maternal GrandfatherDeceasedMaternal GrandmotherDeceasedMotherDeceasedPaternal GrandfatherDeceasedPaternal IiirprvomlzWlenjwilCnkztpd9QlnjqXfrWqiiq Social History Tobacco UseTypesPacks/DayYears UsedDateSmoking Tobacco: Every DayCigarettes1.539 Started: okeless Tobacco: Never Tobacco Cessation:Ready to Q uit: Not Asked; Counseling Given: Not Answered Alcohol UseStandard Drinks/WeekCommentsNot Currently0 (1 standard drink = 0.6 oz pure alcohol)ONCE OR TWICE A YEARChildcareAnswerDate RecordedChildcareUnknown 01/02/2019EmploymentAnswerDate TecbwihrFfirellspcYkmdrbv32/12/2019Hunger ScreeningAnswerDate RecordedWithin the past 12 months we worried whether our food would run out before we got money to buy more.Never True07/08/2025Within the past 12 months the food we bought just didn't last and we didn't have money to get more.Never True07/08/2025Purpose - LifeAnswerDate RecordedPurpose and direction in fllhXbbmyiq41/11/2021CommentsNoSex and Gender Information ValueDate RecordedSex Assigned at BirthNot on fileLegal RmeXbasrk56/06/2015 12:10 PM EDTGender IdentityNot on fileSexual OrientationNot on file Last Filed Vital Signs Vital SignReadingTime TakenCommentsBlood Lmrgcivz672/6711/11/2024 2:35 PM EST Maxgv535407/08/2025 3:19 PM VUTPwnumccoutz97.4 ??C (97.6 ??F)07/08/2025 3:19 PM ESTRespiratory Lbhj643009/08/2024 3:19 PM ESTOxygen Nvumnmfayt26%07/08/2025 3:19 PM ESTInhaled Oxygen Concentration--Etfmni31.1 kg (185 lb 6.5 oz)07/08/2025 3:19 PM CZMAhgkgs509.1 cm (5' 5 )07/08/2025 3:19 PM ESTBody Mass Index30.8507/08/2025 3:19 PM EST Plan of Treatment DateTypeDepartmentCare Team (Latest Contact Info)Vypjtazxvel99/30/2025 2:30 PM ESTHospital Encounter [facility] Surgery [address] [place] [address] Tania Asif MD [address] [facility] [address] [place] [address] 07/22/2025 2:30 PM EST - 07/22/2025 5:15 PM ESTSurgery [facility] [address] [place] [address] Tania Asif MD [address] [facility] [address] [place] [address] DAVINCI HYSTERECTOMY SALPINGO OOPHORECTOMY [[id number] (CPT??)]09/03/2025 3:15 PM EST Office Visit [facility] - Urogyn [address] [place] [address] Tania Asif MD [address] [place] [address] NamePriorityAssociated DiagnosesDate/TimeDAVINCI HYSTERECTOMY SALPINGO OOPHORECTOMY Cystocele with second degree uterine prolapse 07/22/2025 2:30 PM ESTDAVINCI SUSPENSION LIGAMENT UTEROSACRAL Cystocele with second degree uterine prolapse 07/22/2025 2:30 PM ESTREPAIR ANTERIOR CYSTOCELE VAGINA Cystocele with second degree uterine prolapse 07/22/2025 2:30 PM ESTCYSTOSCOPY Cystocele with second degree uterine prolapse 07/22/2025 2:30 PM ESTHealth MaintenanceDue DateLast DoneCommentsTobacco Lioshaehhh1971Depression Rwpzlqbsp18/13/1983Adult BMI Follow Up Plan 1989DTaP,Tdap and Td Vaccines (1 - Tdap)1990Pap Smear1992 Zoster (Shingles) Vaccine (1 of 2)2021Influenza Pufqssm8403/24/2025dult BMI Wcgsgyhkk70Tobacco Ukoweaxhu08 Goals GoalPatient Goal TypeAssociated ProblemsRecent ProgressPatient-Stated?Author Autogenerated Goal Care PlanAutogenerated ProblemNoCamElizabeth clarke [employer] Not on file Procedures Procedure NamePriorityDate/TimeAssociated DiagnosisCommentsREPEATED ABORHRoutine 07/08/2025 3:48 PM EST Preop testing TYPE AND TYVHZVHkhzdbr51/16/2025 3:48 PM EST Preop testing POCT URINALYSIS DIPSTICK WZKLIzakhji60/05/2025 3:04 PM EST Cystocele with second degree uterine prolapse History of reconstructive repair of rectocele Urge urinary incontinence MEASURE POST VOID PPYGEJJJUzxmgen48/05/2025 Cystocele with second degree uterine prolapse History of reconstructive repair of rectocele Urge urinary incontinence from Last 3 Months Results * ABO Rh Repeat (07/08/2025 3:48 PM EST)ComponentValueRef RangeTest Method Analysis TimePerformed AtPathologist NryyczcasLBTDG79/16/2025 10:50 PM ESTTFL BB - SUKGRSXTROdwhdfhm33/16/2025 10:50 PM ESTTFL BB - WELLSKYSpecimen (Source) Anatomical Location / LateralityCollection Method / VolumeCollection Time Received TimeBloodVenous blood / UnknownVenipuncture / Qbuqxzy1907/08/2025 3:48 PM EST07/08/2025 3:48 PM EST Narrative Authorizing ProviderResult TypeResult StatusAntonio Wall MDvufind TEST ORDERABLESFinal ResultPerforming OrganizationAddressty/State/ZIP CodePhone Number [facility] [address] [place] [address], * Type and screen(includes indirect clovis) (07/08/2025 3:48 PM EST)Component ValueRef RangeTest MethodAnalysis TimePerformed AtPathologist SignatureABOAB 07/08/2025 8:22 PM ESTTFL BB - ETBDSVGPNIefhcscv78/16/2025 8:22 PM ESTTFL BB - WELLSKYAntibody XrifkcKzdwzvnc21/16/2025 8:22 PM ESTTFL BB - WELLSKYSpecimen (Source)Anatomical Location / LateralityCollection Method / VolumeCollection TimeReceived TimeBloodVenous blood / UnknownVenipuncture / Ytcdgxb2707/08/2025 3:48 PM EST07/08/2025 3:48 PM EST Narrative Authorizing ProviderResult TypeResult StatusAntonio Wall MDvufind TEST ORDERABLESEdited Result - FinalPerforming OrganizationAddressCity/State/ZIP Code Phone Number [facility] [address] [place] [address], * POCT urinalysis dipstick only (05/28/2025 3:04 PM EST)ComponentValueRef Range Test MethodAnalysis TimePerformed AtPathologist SignatureExternal Poct Urine ColorYELLOWMANUALLY TRANSCRIBED RESULTSExternal Poct Urine AppearanceCLEAR MANUALLY TRANSCRIBED RESULTSExternal Poct Urine GlucoseNegativeMANUALLY TRANSCRIBED RESULTSExternal Poct Urine KetonesNegativeMANUALLY TRANSCRIBED RESULTSExternal Poct Urine BloodNegativeMANUALLY TRANSCRIBED RESULTSExternal Poct Urine Iq5BAEXSNLR TRANSCRIBED RESULTSExternal Poct Urine ProteinNegative MANUALLY TRANSCRIBED RESULTSExternal Poct Urine NitriteNegativeMANUALLY TRANSCRIBED RESULTSExternal Poct Urine Leukocyte EsteraseNegativeMANUALLY TRANSCRIBED RESULTSSpecimen (Source)Anatomical Location / LateralityCollection Method / VolumeCollection TimeReceived OfeaAbsty33/05/2025 3:04 PM EST Narrative Authorizing ProviderResult TypeResult StatusTania Asif MDPOINT OF CARE TEST ORDERABLESFinal ResultPerforming OrganizationAddressCity/State/ZIP CodePhone Number MANUALLY TRANSCRIBED RESULTS * Measure post void residual (05/28/2025)ComponentValueRef RangeTest Method Analysis TimePerformed AtPathologist KrgqasaalXxhdfx43srLFBOQOHB TRANSCRIBED RESULTSSpecimen (Source)Anatomical Location / LateralityCollection Method / VolumeCollection TimeReceived TimeUrine Narrative Authorizing ProviderResult TypeResult StatusTania Asif MDNURSING ASSESSMENTSFinal ResultPerforming OrganizationAddressCity/State/ZIP CodePhone Number MANUALLY TRANSCRIBED RESULTS from Last 3 Months Additional Health Concerns Active ProblemsNoted DateDiagnosed DateAutogenerated Iriobqk1005/30/2025 Insurance Care Teams Team MemberRelationshipSpecialtyStart DateEnd Date Pascale Arana, KLYSTROM TUBE TESTER-RRT [address] [place] [address] PCP - GeneralNurse Practitioner04/02/25
--- OUTSIDE RECORDS SUMMARY | 2025-07-10 15:08 | XMS_ITS | Patient Health Record ---
Author Organization [facility] [place] Address [address] [place] [address] Care Team Providers Care Stock Plan Administrator Name Role Phone None, Unknown or Primary Care Provider Unavailab Tawana Lee [phone] Allergies Allergen (clinical drug ingredient) Drug/Non Drug Allergy documented on EMR Reaction Allergy Type Onset Date Status PenicillinrashDrug AllergyActive Results Component Value Reference Range Notes XR foot LT min 3V (Not yet r eviewed by provider) Interpretation: Performing Lab: Notes/Report: Source Facility: [place] [address] XRay Report Signed Patient: KALYN RUTHERFORD MR#: [id number] : 1970 Acct:[id number] Age/Sex: 54 / F ADM Date: 09/04/24 Loc: EC Attending Dr: Tawana Hoff D.P.M. Ordering Physician: Tawana Hoff D.P.M. Date of Service: 09/04/24 Procedure(s): XR foot LT min 3V Accession Number(s): [id number] cc: NASH LAMAR Peter D.P.M. [facility] [place] [id number] Patient Name: KALYN RUTHERFORD MRN: [id number] date: 1970 Sex: F Assigned Patient Location: EC Current Patient Location: Accession/Order Number: [id number] Exam Date: 09/04/2024 15:53 Report Date: 09/05/2024 [...] Signed By: 09/05/24 1019 DD/ 1016 TD/TT: Canoe Inspector: CT FOOT LT WO CON (Not yet r eviewed by provider) Interpretation: Performing Lab: Notes/Report: Source Facility: [place] [address] CT Scan Report Signed Patient: KALYN RUTHERFORD MR#: [id number] : 1970 Acct:[id number] Age/Sex: 54 / F ADM Date: 09/09/24 Loc: CT Attending Dr: Tawana Hoff D.P.M. Ordering Physician: Tawana Hoff D.P.M. Date of Service: 09/09/24 Procedure(s): CT foot LT wo con Accession Number(s): [id number] cc: ANGEL LUIS LAMAR [place] [address] Patient Name: KALYN RUTHERFORD MRN: [id number] date: 1970 Sex: F Assigned Patient Location: CT Current Patient Location: CT Accession/Order Number: [id number] Exam Date: 09/09/2024 15:56 Report Date: 09/09/2024 [...] Signed By: 09/09/24 174 DD/ 173 TD/TT: Canoe Inspector: Reason For Referral No Information Medications [...] o steoarthritis of the ankle and/or foot (375674237) Primary osteoarthritis, left ankle and foot (M19.072) ActiveconfirmedProblemGastroesophageal reflux disease (494415504)GERD (gastroesophageal reflux disease) (K21.9)ActiveconfirmedProblemPain in left foot (271026267309935)Left foot pain (M79.672)ActiveconfirmedProblemAnxiety depression (755629819)Anxiety with depression (F41.8)ActiveconfirmedProblemUlcer of big toe (disorder) (506343666)Chronic ulcer of great toe of left foot with fat layer exposed (L97.522)Activeconfirmed Vital Signs Heart Rate 85 /min 09/18/2024 Respiratory Rate16 /min09/18/20249969Fujnxqxi79 %09/18/2024 Encounters Encounter Location Date Provider Diagnosis [facility] (PODIATRY) [address] [place], [place] [address] [address] 09/04/2024 Tawana Hoff Pain due to internal orthopedic prosthetic devices, implants and grafts, initial encounter T84.84XA ; Primary osteoarthritis, left ankle and foot M19.072 and Left foot pain M79.672 [facility] (PODIATRY) [address] [place] [address] [place] [address] 09/18/2024 Tawana Hoff 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.0 ; Primary osteoarthritis, left ankle and foot M19.072 and Pain due to internal orthopedic prosthetic devices, implants and grafts, initial encounter T84.84XA [facility] (PODIATRY) [address] [place], [place] [address] [address] 09/04/2024 Tawana Hoff Assessments Encounter Date Diagnosis [...] End Date RANDI [place]TH[place] [address] [place] [address] [id number] Kalyn Rutherford Self - patient is the insured Medical (General) History Medical History History ICD Code GERD (gastroesophageal reflux disease) K 21.9 Anxiety F41.9 Arthritis M19.90 Nicotine dependence F17.200 Bipolar depression F31.9 Overactive bladder N32.81 Peripheral arterial disease I73.9 Surgical History Surgery Date(Month/Year) cholecystectomy tubal ligationgastric tfypuu84/2020posterior colporrhaphy repair, enterocele eynnjq4702/15/2021
--- NOTE | 2025-07-10 15:37 | PM.CN ---
Consult Note: HPI Data of Consult Patient: known to practice within the last 3 years Consult date: 07/10/25 Requesting Physician: Flory Payne NP Primary Care Provider: Pascale Arana NP Consult Narrative Reason for consult: low back pain Narrative: Talia Mercado a pleasant 55 year old female presents for evaluation of chronic low back pain. Pt has failed to benefit from > 6 weeks of PT/HEP, heat, ice, tylenol, NSAIDs. cervical mri and lumbar mri consistent for degenerative changes and mild to moderate stenosis. pt noting >90% improvement from recent bilateral L4-5 L5-S1 facet RFA. pain 0/10 increasing to 1-2/10 intermittently, RANDELL 0%. has not needed flexeril since RFA. cc:: CC: Flory Payne NP Review of Systems ROS Musculoskeletal Denies: back pain PFSH PFSH Medical History Overactive bladder ?N32.81 - Overactive bladder (ICD-10) Obesity ?E66.9 - Obesity, unspecified (ICD-10) Nicotine dependence ?F17.200 - Nicotine dependence, unspecified, uncomplicated (ICD-10) History of cystocele ?Z87.448 - Personal history of other diseases of urinary system (ICD-10) PVD (peripheral vascular disease) ?I73.9 - Peripheral vascular disease, unspecified (ICD-10) Iron deficiency anemia ?D50.9 - Iron deficiency anemia, unspecified (ICD-10) Fibromyalgia ?M79.7 - Fibromyalgia (ICD-10) Bipolar disorder ?F31.9 - Bipolar disorder, unspecified (ICD-10) UGIB (upper gastrointestinal bleed) ?K92.2 - Gastrointestinal hemorrhage, unspecified (ICD-10) Anxiety with depression ?F41.8 - Other specified anxiety disorders (ICD-10) Gastro-esophageal reflux ?K21.9 - Gastro-esophageal reflux disease without esophagitis (ICD-10) Arthritis of left foot ?M19.072 - Primary osteoarthritis, left ankle and foot (ICD-10) RP (rectal prolapse) ?K62.3 - Rectal prolapse (ICD-10) Chronic headache ?R51.9 - Headache, unspecified (ICD-10) ?G89.29 - Other chronic pain (ICD-10) Surgical History History of tubal ligation ?Z98.51 - Tubal ligation status (ICD-10) Hx of cholecystectomy ?Z90.49 - Acquired absence of other specified parts of digestive tract (ICD-10) H/O cystoscopy ?Z98.890 - Other specified postprocedural states (ICD-10) H/O esophagogastroduodenoscopy ?Z98.890 - Other specified postprocedural states (ICD-10) Hx of gastric bypass ?Z98.84 - Bariatric surgery status (ICD-10) Family History Mother Family history of diabetes mellitus Father Heart disease Social History Within the past year, how often did you have a drink containing alcohol: never Within the past year, how often did you have six or more drinks on one occasion: never Score interpretation: A score less than 3 is consistent with normal alcohol consumption. Smoking status: Current every day smoker Second hand tobacco smoke exposure: Yes Non-prescribed substance use: denies use Previous occupational history: [employer] Known occupational exposures/hazards: No Highest level of school completed/degree received: high school graduate Little interest or pleasure in doing things: not at all Feeling down, depressed, or hopeless: not at all Do you think of yourself as: straight/heterosexual Gender Identity: female Meds Home Medications and Allergies Home Medications ?Medication ?Instructions ?Recorded ?Confirmed ?Type duloxetine 30 mg capsule,delayed 60 mg PO DAILY 06/19/23 06/16/25 History release (Cymbalta) zolpidem 10 mg tablet (Ambien) 10 mg PO DAILY PRN insomnia 07/11/23 06/16/25 History cyclobenzaprine 10 mg tablet 10 mg PO TID PRN muscle spasm 01/31/25 06/16/25 History fexofenadine 180 mg tablet 180 mg PO DAILY 01/31/25 06/16/25 History (Layla Allergy) gabapentin 300 mg capsule 900 mg PO TID 01/31/25 06/16/25 History (Neurontin) meloxicam submicronized 10 mg 15 mg PO DAILY 01/31/25 06/16/25 History capsule (Vivlodex) vitamin B12 500 mcg-folic acid 400 1 tab PO DAILY 01/31/25 06/16/25 History mcg tablet cariprazine 3 mg capsule (Vraylar) 3 mg PO DAILY 03/10/25 06/16/25 History cholecalciferol (vitamin D3) 25 1,000 unit PO DAILY 05/05/25 06/16/25 History mcg (1,000 unit) capsule mirabegron 50 mg tablet,extended 50 mg PO DAILY 05/05/25 06/16/25 History release 24 hr (Myrbetriq) cyclobenzaprine 10 mg tablet 10 mg PO TID PRN muscle spasm #90 05/21/25 06/16/25 Rx tabs diazepam 5 mg tablet (Valium) 15 mg (3 x 5 mg) PO ONCE PRN 06/06/25 06/16/25 Rx anxiety #3 tabs Allergies Allergy/AdvReac Type Severity Reaction Status Date / Time Penicillins Allergy Severe Hives Verified 06/16/25 08:29 Exam Constitutional Documenting provider has reviewed patient's vital signs: yes Common normals: no apparent distress, oriented x3 and alert General appearance: cooperative HENMO Common normals: normocephalic, hearing grossly normal bilaterally and moist oral mucous membranes Head and scalp: normocephalic Eye Common normals: PERRL Pupil: PERRL Neck & C-Spine Common normals: full ROM General: normal visual inspection Chest Common normals: inspection of chest normal Respiratory Common normals: normal respiratory effort, no retractions and no use of accessory muscles Back & Pelvis Lumbar spine/lower back: lumbar ROM normal and straight leg raise negative bilaterally; ROM not limited, no pain with ROM and no lumbar spinal tenderness Other: positive facet loading, mildly strength 5/5 in BLE sensation intact BLE Neuro Common normals: oriented x3 Sensorium/orientation: alert Psych Common normals: mental status grossly normal, thought process normal, cooperative, affect normal, speech normal and activity/motor behavior normal Speech: normal speech Thought process: normal thought process Results Additional Findings Additional findings: If on a controlled substance or opioids, I have checked an [place]AR[place] report on this patient and there are no aberrancies noted in the prescribing history.??If on a controlled substance or opioid a drug screen was completed and reviewed within the last year, and if there has not been a drug screen completed we ordered one today to monitor higher risk, state monitored pain medication use. As part of providing excellent, safe, comprehensive care, the following was completed at our patient's visit: 1. A medication reconciliation and review to ensure accurate knowledge of current/active medications, including asking our patients to inform us about any ukne-kgg-bsexfhx medications or herbal remedies/nutritional supplements/alternative remedies. 2. A review to specifically ensure our patients have had annual screening for screening for depression, screening for tobacco use, and screening for unhealthy alcohol use. For concerning screenings had a discussion with the patient, provided patient education, and recommended follow-up with primary care provider when appropriate. If patient noted with a risk of falling, they received education on strength, gait, and balance training to prevent future risk of falling. Portions of this note may have been carried over from the previous visit and updated as appropriate. Please note this office utilizes paper charting in addition to the electronic medical record. A list of current medications, vitals, and PMH is available there as the clinical staff outside of myself do not have access to [employer] charting during the clinic day operations. As part of providing quality comprehensive care the current medications, vitals, and PMH were reviewed in the paper chart. Assessment and Plan Assessment and Plan (1) Lumbar spondylosis: Plan pain significantly improved post bilateral L4-5 L5-S1 RFA, can continue flexeril 10mg tid prn pain/spasms. f/u 6 months, sooner if needed
== END 2025-07-10 15:03 | disposition home or self-care (01) ==
LOC: PM 15:03
PROVIDERS: PCP Nurse Practitioner; Visit Provider Nurse Practitioner
DX: M47.816 Spondylosis without myelopathy or radiculopathy, lumbar region (principal)
CPT/HCPCS: G0463